=== PATIENT | female | born 1975 | race Caucasian/White ===

== ENCOUNTER 2018-04-28 10:00 | Outpatient (RCR) | payer MEDICARE, MEDICAID, SELFPAY ==
--- NOTE | 2018-04-15 12:01 | PTTR_ITS ---
DATE: 04/15/18 SUBJECTIVE: Tia states that she is scheduled at [facility] for an ortho consult in mid-May. She is having a great deal of LE pain after repetitive squatting at work on Saturday. She's had difficulty getting up from chairs due to the severity of her muscle soreness. Compliant with HEP: x Yes No OBJECTIVE: Manual therapy: ([id number]). Patient's ambulating with significant antalgia. She requires UE support for all transfers. She received PROM to the right shoulder, followed by grade II AP GH joint mobs. In sidelying, she received scapular framing techniques and TrP release to the rhomboids, followed by DTM to the infraspinatus. She was instructed in sidelying shoulder ER, and provided with handouts for home completion. Also added light LE strengthening activities , which she can attempt on her own for generalized strengthening. Direct treatment time: 30 minutes Total treatment time: 30 minutes
--- NOTE | 2018-04-28 13:04 | PN_ITS ---
DATE: April 28, 2018 REFERRING: Juma Herrera M.D. cc: [facility] [place], [place] REFERRING PROVIDER DIAGNOSIS:: neck pain PHYSICAL THERAPY DIAGNOSIS: scapular dyskinesia with right rotator cuff impingement REPORTING PERIOD (for progress note and discharge note only): 01/15/18 through SUBJECTIVE: Tia presents today with complaints of continued right shoulder pain. She describes pain through the superior shoulder, extending through the lateral arm to the level of the elbow with occasional tingling in the dorsum of the right hand. Pain has been ongoing, now, for several months without significant improvement. She does get temporary relief with P.T. interventions , and has been working on a progressive strengthening program for the past several weeks. She has a scheduled Orthopedic consultation on May 20, which she is looking forward to. The patient history does include a significant cervical history including a C6/7 spinal fusion with persistent scapular pain. Pain ratin/10 on average Pain location: Superior shoulder extending down the lateral arm. She also has chronic with para scapular pain. Prior level of function: Independent Social: The patient is employed by [employer]. She has been there for many years. Current level of function: The patient continues to struggle with functional reach with the right UE. She is not able to reach behind her back for self care. She has a great deal of social stress in her life. Previous treatment: The patient has had extensive P.T. interventions regarding her neck. She was seen at [facility] for management of her cervical and lumbar spine historically. Comorbidities: She is S/p C6/7 spinal fusion, S/p L5/S1 spinal fusion with spinal stimulator implant, depression, GERD and peripheral neuropathy Standardized Measures: * Disability Arm/Shoulder/Hand Score (DASH): 46% OBJECTIVE: Posture: The patient continues to demonstrate rounded shoulder, forward head posturing with significant scapula winging noted bilaterally. Gait: (indicate right or left deficits) Non antalgic and non ataxic. Palpation: The patient has significant soft tissue tightness, most specifically through the right rhomboids, right infraspinatus and right upper trapezius. She is hyper sensitive through these regions, and has palpable trigger points noted. She is exquisitely tender to palpation over the greater tuberosity on the right and through the posterior capsule. ROM: Cervical flexion and extension are WNL. Rotation is approximately 60 bilaterally and side bending 20 bilaterally. UE motion allows shoulder flexion to 165 on the right. Functional internal rotation with thumb to L3 with obvious discomfort and difficulty. Passively, flexion allows 160 with impingement symptoms and empty end feel. Internal and external rotation are both WNL. Strength: Shoulder flexion 4/5 right, abduction 4/5 right, biceps 5/5, internal rotation 4+/5, and external rotation 4/5 right. Treatment: Manual therapy ([id number] x2) Today's session consisted of PROM to the right shoulder and Grade 2 inferior and AP glenohumeral joint mobilizations. The patient also received deep tissue mobilizations through the posterior shoulder, beginning with scapula framing techniques and progressing to deep tissue mobilizations through the infraspinatus. She received trigger point release to the rhomboids and infraspinatus. Deferred friction massage due to historically poor tolerance. Treatment time: Total 30 minutes ASSESSMENT: Tia is a 42 year old female who has been participating in P.T. with infrequent visits for the past 3 months, for progressive strengthening and mobilizations. She continues to have significant shoulder discomfort and functional weakness despite progressive strengthening activities. She does have a long history of chronic neck issues with history of cervical fusion and chronic pain, however I continue to suspect a component of rotator cuff tendinopathy, which unfortunately is not responding favorably to intervention. She does have an appointment scheduled with Orthopedics at [facility] in about 3 weeks. We will plan to hold on P.T. til that visit, although patient understands she can contact me with any questions or concerns in the meantime. G-Codes (add modifier after appropriate code): Patient's primary functional limitation is in the category of: * [x] Carrying, moving and handling objects: [id number]-[[id number]] based on her DASH score vs. NDI as I suspect the majority of her issues are related to shoulder vs. neck dysfunction Projected goal: [id number]-[CI] ST) initiate scapular stabilization program without increasing pain - met 2) painfree cervical ROM - progressing toward LT) fully independent in self management of symptoms - not met 2) patient able to tolerate driving without increasing pain - not met 3) return to premorbid level of function - not met 4) return to full, painfree functional mobility - not met 5) independent self maintenance program - not met PLAN: Hold on P.T. until after her Orthopedic consultation. Will follow up with a re-evaluation and progression, at that time, with alterations in POC based on Ina recommendations. Please sign, date and return to our clinic with your approval......................... Juma Herrera M.D.
== END 2018-05-02 23:59 | disposition home or self-care (01) ==
LOC: PT 10:00
PROVIDERS: PCP Family Medicine; Referring Provider Family Medicine; Visit Provider Family Medicine
DX: M54.2 Cervicalgia (principal); M75.41 Impingement syndrome of right shoulder
CPT/HCPCS: 97140

== ENCOUNTER 2018-10-07 09:39 | Outpatient (CLI) | payer MEDICARE, MEDICAID, SELFPAY ==
[2018-10-07 12:08] LABS: Vitamin B12 435 pg/mL (193-986)
== END 2018-10-07 09:59 ==
PROVIDERS: PCP Family Medicine; Visit Provider Family Medicine
DX: Z98.84 Bariatric surgery status (principal); K90.89 Other intestinal malabsorption
CPT/HCPCS: 36415; 82607

== ENCOUNTER 2018-12-02 07:43 | Outpatient (CLI) | payer MEDICARE, MEDICAID, SELFPAY ==
[2018-12-03 15:57] LABS: Hepatitis C Ab w Rflx HCV PCR Negative (NEGAT)
== END 2018-12-02 08:03 ==
PROVIDERS: PCP Family Medicine; Visit Provider Family Medicine
DX: Z20.5 Contact with and (suspected) exposure to viral hepatitis (principal); Z11.59 Encounter for screening for other viral diseases
CPT/HCPCS: 36415; 86803

== ENCOUNTER 2019-05-01 08:19 | Outpatient (CLI) | payer MEDICARE, MEDICAID, SELFPAY ==
--- NOTE | 2019-05-01 08:34 | DI.RAD_ITS ---
SYMPTOM/DIAGNOSIS: LEFT KNEE PAIN M25.562 LEFT KNEE: There may be slight narrowing of the medial femoral tibial joint space which shows mild spurring. There is slight spurring at the tibial spines. Spurring is also noted at the patellofemoral joint. IMPRESSION: Mild degenerative changes.
[2019-05-01 09:31] LABS: Anion Gap 8.8 mmol/L (3-11); BUN 11 mg/dL (7-18); CO2 29.2 mmol/L (21.0-32.0); Calcium 8.9 mg/dL (8.5-10.1); Chloride 107 mmol/L (98-107); Glucose 79 mg/dL (70-100); Potassium 4.1 mmol/L (3.5-5.1); Sodium 145 mmol/L (136-145)
== END 2019-05-01 08:39 ==
PROVIDERS: PCP Family Medicine; Visit Provider Family Medicine
DX: M25.562 Pain in left knee (principal); M48.00 Spinal stenosis, site unspecified; M17.12 Unilateral primary osteoarthritis, left knee
CPT/HCPCS: 36415; 73562; 80048

== ENCOUNTER 2019-09-08 09:46 | Outpatient (CLI) | payer MEDICARE, MEDICAID, SELFPAY ==
[2019-09-08 10:29] LABS: HCT 40.5 % (36.0-46.0); Mean Corp. HGB Concentration 34.6 g/dL (32.0-36.0); Mean Corpuscular Hemoglobin 30.2 pg (27.0-33.0); Mean Corpuscular Volume 87.5 fL (80-95); Mean Platelet Volume 9.5 fL (8.0-11.0); Platelet Count 235 x1000/uL (130-400); RBC 4.63 m/cumm (4.00-5.20); RBC Distribution Width 13.3 % (11.7-14.6); White Blood Cell Count 4.26 k/cumm (4.4-10.8)
[2019-09-08 13:13] LABS: ALT 27 U/L (14-59); AST 16 U/L (15-37); Albumin 3.7 g/dL (3.4-5.0); Alkaline Phosphatase 55 U/L (46-116); Anion Gap 9.4 mmol/L (3-11); BUN 17 mg/dL (7-18); Bilirubin, Total 0.5 mg/dL (0.2-1.0); CO2 26.6 mmol/L (21.0-32.0); CREATININE 0.68 mg/dL (0.55-1.02); Calcium 9.1 mg/dL (8.5-10.1); Chloride 107 mmol/L (98-107); Glucose 117 mg/dL (74-106); Sodium 143 mmol/L (136-145); Total Protein 6.6 g/dL (6.4-8.2)
== END 2019-09-08 10:06 ==
PROVIDERS: PCP Family Medicine; Visit Provider Obstetrics & Gynecology Gynecology
DX: R10.2 Pelvic and perineal pain (principal); Z01.818 Encounter for other preprocedural examination; Z01.812 Encounter for preprocedural laboratory examination
CPT/HCPCS: 36415; 80053; 85027; 86850; 86900; 86901

== ENCOUNTER 2019-09-09 10:03 | Observation (INO) | payer MEDICARE, MEDICAID, SELFPAY ==
[2019-09-09] VITALS (15 sets, daily range): BP systolic 95–120; BP diastolic 38–75; PULSE 56–80; RESP 14–22; TEMP 36.7–37.1; O2SAT 94–100
[2019-09-09] MEDS: Lactated Ringers 1,000 ML 125 ML IV ×2 (07:25→10:07)
--- NOTE | 2019-09-09 09:15 | PERITONEUM_PTH ---
PATIENT: Tia Rooney LOC: OBS U#:[id number] AGE/SX: 44/F ROOM: OBS.306 RE09/09/[address]: Brit Veliz : 1975 BED: A DIS: 09/10/2019 SPEC #: [id number] RECD: 09/09/19 12:42 STATUS: SOUMaurisio REQ #: [id number] CONSUELO: 09/09/19 09:[address]: Brit Veliz DEPT: Surgical Specimen RECD BY: Yoly Lindquist ENTERED: 09/09/19 12:44 SP TYPE: PERITONEUM OTHR DR: Juma Herrera MD Tissues: 1 - PERITONEUM/ANATOLIY BIOPSY 2 - OVARY NOT TUMOR W OR W/O TUBES Procedures: GROSS AND MICRO LEVEL 4 Comments: [id number]
[2019-09-09] MEDS: Bupivacaine 0.25% Pres-Free 30 ML VIAL (09:30)
[2019-09-09] MEDS: fentaNYL 100 MCG/2 ML VIAL IVP ×3 (10:13→10:37)
[2019-09-09] MEDS: HYDROmorphone 2 MG TAB PO ×2 (12:27→17:22)
--- NOTE | 2019-09-09 12:41 | NUR.NOTE ---
1045- Admitted to room 306 uziel bed from PACU. IV of LR infusing via R periph line in R hand. Awake oriented C/O pain in Abdomen. SCD's in place bilat.Nursing Note:
--- NOTE | 2019-09-09 13:08 | W.PM.OP ---
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 Nl abd/pelvic CT/u/s. Not a candidate for OCPs. Hx of LAVH in past Her cyclic pelvic pain has improved with ovarian suppression in the form of Depo-Lupron 11.25 mg every 3 months since October 2017. Findings: Small amount of clear serous fluid in the posterior cul-de-sac absence of uterus. Single strawlike structure extending from the serosal surface of the small intestine to the vaginal cuff was noted upon entry into the abdominal cavity. Dr. Maurice Murillo kindly provided a intraoperative consult and recommended removal of the structure. Upper abdomen was normal in appearance right. Right fallopian tube fallopian tube was distended left fallopian tube missing. Both ovaries appeared normal. No dense adhesions there was evidence of scattered minute blue bleb endometriosis on the pelvic sidewalls. All total accumulation less than 0.5 cm. Procedure Description: Patient was brought to the operating room was placed in the dorsal supine position and general endotracheal anesthesia was administered without difficulty she was prepped and draped in the usual sterile fashion. Surgical timeout was performed SCDs were in place. Attention was turned to the patient's abdomen after Fritz catheter was inserted to gravity drainage the umbilical fold was infiltrated with quarter percent Marcaine without epinephrine and a 10 mm vertical skin incision was made in the umbilical fold using a scalpel. The abdominal wall was tented up and under direct visualization with the abdominal ultrasound the varies needle was introduced into the abdominal cavity with CO2 insufflation noted to decrease from 15 mmHg to 5 mmHg upon entry into the abdominal cavity. Pneumoperitoneum with carbon dioxide gas was achieved and the varies needle withdrawn 10 mm Visiport was then introduced through the umbilical incision and entry into the abdominal cavity confirmed by use of the laparoscope. Patient was then placed in Trendelenburg and a 5 mm skin incision right lower quadrant was made after infiltration of the site with quarter percent Marcaine without epinephrine. Through this incision of and under direct visualization a 5 mm trocar and sleeve were introduced into the abdominal cavity. A similar technique was carried out on the contralateral side. A tubular structure ran caudal cephalad from the vaginal cuff to the surface of the small intestine a surgical up was used at both the proximal and distal ends and again 3 cm distal from the clip at the small bowel. Laparoscopic scissors were used cut between the clips proximal to the small intestine. LigaSure device was used to clamp cauterize and cut the portion of the structure in proximity to the clip at the vaginal cuff. The right adnexa was grasped and a LigaSure device was used to grasp cauterize and transect the infundibulopelvic ligament, on tubo-ovarian ligament and the remaining mesosalpinx. The adnexa was then placed in the posterior cul-de-sac and attention was turned to the patient's left adnexa where left fallopian tube was grasped tented and the infundibulum pelvic ligament was sequentially grasped clamped cauterized and transected and the intact ovary placed in the posterior cul-de-sac. Both pedicle sites were noted to be hemostatic. Both adnexal specimens were placed into 10 mm Endo Catch bag and the Endo Catch bag delivered through the umbilical incision without difficulty. The specimen was passed off of the operative field. Final inspection was made of the pedicle sites and posterior cul-de-sac sites were hemostatic. Cul-de-sac appeared normal. Under direct visualization both lower trochars were removed and the sites noted to be hemostatic. Pneumoperitoneum was reduced umbilical port was removed and the rectus fascia reapproximated with interrupted suture of 0 Vicryl. The skin of the umbilical incision was reapproximated with a 4-0 Monocryl and the skin of all incisions was reopened was reapproximated with skin glue. Patient was awakened extubated and transported recovery in stable condition all sponge lap needle counts are correct x2
[2019-09-09] MEDS: Normal Saline Flush 10 ML SYR IV ×2 (15:35→21:33)
[2019-09-09] MEDS: Ketorolac 30 MG/ML VIAL IVP ×2 (15:35→21:34)
[2019-09-09] MEDS: LORazepam 1 MG TAB PO ×2 (21:32)
[2019-09-09] MEDS: Docusate Sodium 100 MG CAP PO (21:33)
[2019-09-10] MEDS: HYDROmorphone 2 MG TAB PO ×2 (02:26→08:15)
[2019-09-10 04:00] VITALS: BP 112/68; PULSE 78; RESP 18; TEMP 36.8
[2019-09-10] MEDS: Normal Saline Flush 10 ML SYR IV (04:00)
[2019-09-10] MEDS: LORazepam 1 MG TAB (04:01)
[2019-09-10] MEDS: Ketorolac 30 MG/ML VIAL IVP (04:02)
[2019-09-10] MEDS: Docusate Sodium 100 MG CAP PO (08:11)
[2019-09-10] MEDS: Acetaminophen 500 MG TAB PO (08:13)
[2019-09-10 08:15] VITALS: BP 112/72; PULSE 80; RESP 16; TEMP 36.8; O2SAT 98
--- NOTE | 2019-09-10 18:41 | W.PM.PROGNOT ---
Date of Service Date of service: 09/10/19 Time of Service: 19:02 Assessment and Plan Assessment and plan (1) History of bilateral salpingo-oophorectomy: Status: Acute Assessment and plan: Surgery was uncomplicated. Patient discharged to home on postop day #1 tolerating oral Dilaudid and rating her pain at a 7/10. Plan is to have [facility] regarding pathology results. She was given a work excuse and a prescription for Dilaudid 2 mg every 6 hours as needed for pain and nonsteroidal anti-inflammatories. After discharge the patient contact me in stated that she experienced increased GERD symptoms a prescription for once a day omeprazole was E faxed to her pharmacy. Subjective Subjective Patient reports: still having pain (But pain is being controlled with oral Dilaudid.), tolerating a regular diet, flatus and no bowel movement (States history of infrequent BMs after bariatric surgery); denies nausea and vomiting Interval history since last seen: Patient underwent a laparoscopic bilateral oophorectomy on 09/09/2019. She was admitted for observation anticipation of greater than average pain secondary to her pain history. She tolerated the oral Dilaudid well and is ready for discharge this morning. Incisions are tender and her discomfort is generalized in her abdomen and pelvis. Exam Const General: no acute distress Nutritional Appearance: overweight Orientation: alert, awake and oriented x3 Resp Effort & Inspection: normal respiratory effort Auscultation: clear to auscultation bilaterally Cardio Rate: regular rate Rhythm: regular rhythm GI Inspection: other (Incisions clean dry and intact skin glue in place) Palpation: soft, no hepatosplenomegaly, no guarding, no masses and tender General: deferred Skin General skin exam: no rashes or lesions noted Extrem General: normal to inspection, full ROM and normal capillary refill Objective Objective Clinical Data: Vital Signs Temperature 98.2 F 09/10/19 08:15 Temperature Source Oral 09/10/19 08:15 Pulse 80 09/10/19 08:15 Pulse Rhythm Regular 09/10/19 08:15 Respiratory Rate 16 09/10/19 08:15 Respiratory Effort 09/10/19 08:15 Respiratory Depth Normal 09/10/19 08:15 Respiratory Pattern Normal 09/10/19 08:15 Blood Pressure 112/72 09/10/19 08:15 Pulse Oximetry 98 09/10/19 08:15 Respiratory End-tidal CO2 42 09/09/19 10:45 Oxygen Delivery Method Room Air 09/10/19 08:15 Oxygen Flow Rate 0 09/10/19 08:15 Pain Level 6 09/10/19 08:15 Intake & Output 09/09/19 09/10/19 09/10/19 23:59 11:59 23:59 Intake Total 889.167 / 2089.167 Output Total 1500 / 1525 Balance -610.833 / 564.167 Intake: IV 489.167 / 1689.167 Oral 400 / 400 Output: Urine 1500 / 1525 Other: Urine Color Yellow Urine Appearance Clear Urine Odor None Voiding Methods Toilet
== END 2019-09-10 11:00 | disposition home or self-care (01) ==
LOC: OBS 11:30
PROVIDERS: Admitting Provider Obstetrics & Gynecology Gynecology; PCP Family Medicine; Visit Provider Obstetrics & Gynecology Gynecology
PROC: 0UT24ZZ Resection of Bilateral Ovaries, Percutaneous Endoscopic Approach (ICD-10-PCS; CPT 58661; principal; 2019-09-09 08:30)
DX: N70.11 Chronic salpingitis (principal); N99.4 Postprocedural pelvic peritoneal adhesions; G89.29 Other chronic pain; R10.2 Pelvic and perineal pain; Z98.51 Tubal ligation status; N94.10 Unspecified dyspareunia; Z90.710 Acquired absence of both cervix and uterus; Z90.79 Acquired absence of other genital organ(s); K21.9 Gastro-esophageal reflux disease without esophagitis
CPT/HCPCS: 58661; 88305; NC; G0378; J1100; J1885; J2001; J2405; J2704; J3010

== ENCOUNTER 2020-04-22 07:24 | Outpatient (CLI) | payer MEDICARE, SELFPAY ==
[2020-04-25 12:40] LABS: SARS-CoV-2 RNA Undetected (Undetected); SARS-CoV-2 Specimen Source Nasopharynx
== END 2020-04-22 07:44 ==
PROVIDERS: PCP Nurse Practitioner; Visit Provider Family Medicine
DX: Z11.59 Encounter for screening for other viral diseases (principal)
CPT/HCPCS: U0003

== ENCOUNTER 2020-05-30 03:03 | Outpatient (CLI) | payer MEDICARE, SELFPAY ==
[2020-05-30 09:51] LABS: Calculated LDL 81 mg/dL (<100); Cholesterol 198 mg/dL (<200); HDL Cholesterol 99 mg/dL (40-60); Triglyceride 91 mg/dL (<150)
== END 2020-05-30 03:23 ==
PROVIDERS: PCP Nurse Practitioner; Visit Provider Nurse Practitioner
DX: R73.03 Prediabetes (principal); E66.9 Obesity, unspecified
CPT/HCPCS: 36415; 80061; 83036

== ENCOUNTER 2020-06-02 02:43 | Outpatient (CLI) | payer MEDICARE, SELFPAY ==
--- NOTE | 2020-06-02 07:45 | DI.MAMMO_ITS ---
EXAM: MAMMO SCREENING CLINICAL HISTORY: screening,Z12.39 TECHNIQUE: Mammograms were interpreted according to the usual protocol including computer analysis w BOND CAD system, tomosynthesis and C-view imaging. COMPARISON: 2013 and 2015 FINDINGS: The breasts are composed of heterogeneously dense fibroglandular densities, Breast Density category C . No suspicious masses or suspicious microcalcifications are seen. No skin thickening or abnormal axillary lymph nodes are seen. There has been no significant change from prior exams. IMPRESSION: BI-RADS Category 1, Negative mammogram. Yearly screening mammography is recommended. Breast Density Category C, heterogeneously Dense. The mammogram demonstrates the patient's breast tissue is dense. Dense breast tissue is very common a nd is not abnormal but dense breast tissue can make it harder to find cancer on a mammogram. Also, de nse breast tissue may increase breast cancer risk. This information about the result of the mammogram report was provided to the patient to raise their awareness. Use this report when you speak with the patient about their risks for breast cancer, which includes their family history. At that time, you may recommend additional screening tests (Ultrasound or MRI) as they might be useful based on their r isk. A negative radiographic report should not delay biopsy if a dominant or clinically suspicious mass is present. Up to ten percent of cancers are not identified on mammography. A negative report may reinforce clinical impression. Adenosis and dense breasts may obscure an underlying neoplasm. False positive reports average 6 to 10%.
== END 2020-06-02 03:03 ==
PROVIDERS: PCP Nurse Practitioner; Visit Provider Nurse Practitioner
DX: Z12.31 Encounter for screening mammogram for malignant neoplasm of breast (principal)
CPT/HCPCS: 77063; 77067

== ENCOUNTER 2020-11-14 09:52 | Outpatient (CLI) | payer MEDICARE, SELFPAY ==
[2020-11-15 13:47] LABS: COVID-19 RT-PCR UVMMC Result Negative (Negative)
== END 2020-11-14 09:53 | disposition home or self-care (01) ==
PROVIDERS: PCP Nurse Practitioner; Visit Provider Nurse Practitioner
DX: J02.9 Acute pharyngitis, unspecified (principal); Z20.822 Contact with and (suspected) exposure to COVID-19
CPT/HCPCS: U0003; U0005; 87081

== ENCOUNTER 2020-12-13 20:50 | Outpatient (REF) | payer MEDICARE, OTHER, SELFPAY | END 2020-12-13 20:51 | disposition home or self-care (01) | LOC: LBN 20:50 | PROVIDERS: PCP Nurse Practitioner; Visit Provider Nurse Practitioner Family | DX: J02.9 Acute pharyngitis, unspecified (principal) | CPT/HCPCS: 87070 ==

== ENCOUNTER 2021-03-11 10:39 | Emergency (ER) | payer MEDICARE, SELFPAY ==
[2021-03-11 10:42] VITALS: BP 132/64; PULSE 87; RESP 14; TEMP 36.7; O2SAT 98
--- NOTE | 2021-03-11 10:54 | ED.GENADUL_ITS ---
Discharge Plan Disposition Patient Disposition: HOME Condition: Stable Discharge Details Clinical Impression: Shoulder pain, right Primary Care Provider: Shonda Sánchez ED Provider: Horacio Harris Home Meds and New Rx's Prescriptions: Continued cyclobenzaprine 10 mg tablet 10 mg PO HS PRN (Reason: muscle spasm) Qty: 30 RF: 3 cholecalciferol (vitamin D3) 50 mcg (2,000 unit) capsule 50 mcg PO DAILY Qty: 90 RF: 3 prochlorperazine 25 mg suppository 25 mg IA Q12H PRN (Reason: nausea and vomiting) Qty: 12 RF: 3 albuterol sulfate [ProAir HFA] 90 mcg/actuation HFA aerosol inhaler 1 - 2 puff Inhalation Q4H PRN Qty: 1 RF: 6 buspirone 5 mg tablet 30 mg PO BID RF: 0 sumatriptan succinate 6 mg/0.5 mL cartridge 6 mg subcut Q1-4H PRN (Reason: migraine headache) Qty: 6 RF: 0 Multi Complete with Iron 1 EACH tablet 1 tab PO DAILY RF: 0 vitamin d 3,000 units PO DAILY RF: 0 duloxetine 30 mg capsule,delayed release(DR/EC) 30 mg PO DAILY Qty: 90 RF: 4 duloxetine [Cymbalta] 60 mg capsule,delayed release(DR/EC) 60 mg PO DAILY Qty: 90 RF: 4 omeprazole magnesium [Prilosec OTC] 20 mg tablet,delayed release (DR/EC) 20 mg PO DAILY PRN (Reason: heartburn) Qty: 30 RF: 3 pregabalin [Lyrica] 100 mg capsule 100 mg PO TID Qty: 90 RF: 5 methylphenidate HCl 20 mg tablet 20 mg PO BID MDD 40 mg Qty: 56 RF: 0 methylphenidate HCl 10 mg tablet 10 mg PO BID MDD 20 mg Qty: 56 RF: 0 oxycodone 5 mg tablet 5 mg PO TID MDD 15 mg PRN (Reason: pain) Qty: 84 RF: 0 docusate sodium [Colace] 100 MG capsule 100 mg PO BID PRNRF: 0 clonidine HCl 0.1 mg tablet 0.1 mg PO BID RF: 0 Discharge Instructions Instructions: Shoulder Pain (ED) Additional Instructions: X-ray read by me as negative, awaiting official read by radiology. If over read shows no abnormality I will personally call you. Continue your oxycodone and Tylenol as directed. Wear sling as needed, advance activity as tolerated. Be sure to do passive range of motion at least 4 times daily to avoid a frozen shoulder. Cool and/or warm compresses every 2 hours for 20 minutes. Please watch for new or worsening symptoms and return to the ER for any concerns. I do recommend you reach out to both your primary care provider and orthopedic team on Saturday regarding your acute and chronic shoulder pain. Discharge Data Discharge Date/Time-TO BE ENTERED AT DEPARTURE: 03/11/21 12:01 Medical Decision Making 45-year-old female, [id number], chronic right shoulder pain, presenting for injury that occurred 3 days ago after a direct blow to her shoulder. She does have an abrasion although there are no signs of infection. Vital signs are unremarkable. Clinically this appears to be soft tissue in nature but will obtain x-ray of her right shoulder for further evaluation. Patient will also be given IM Toradol. Discussed treating with sling, cool compresses, we discussed the importance of passive range of motion to avoid a frozen shoulder. X-ray reviewed by me and confirmed by radiology as negative. Discussed x-ray findings with patient. Patient already placed into a sling. We discussed signs and symptoms of infection. We also discussed the importance of outpatient follow-up through her orthopedic team for her chronic and acute shoulder pain. Patient has no additional questions or concerns and is comfortable discharge at this time. Patient does have a opiate controlled substance prescription contract, encouraged her to contact her primary care provider if she is going to require additional pain medication for her new discomfort. This documentation was generated using [employer] dictation system, please disregard any oddities of phrase or misspellings. Medical Records Medical records reviewed: Yes I reviewed the patient's medical records. Imaging Data Radiologic Study: Attestation: I personally reviewed and interpreted this imaging study as follows: Imaging: X-Ray Radiologist's impression: EXAM: XR SHOULDER RT COMPLETE 2+V CLINICAL HISTORY: chronic pain, new injury 3 days ago. TECHNIQUE: 2D digital imaging was performed. COMPARISON: No exams were available for comparison FINDINGS: BONES: No acute fracture is present. No bony destructive lesion is seen. JOINTS: No dislocation present. SOFT TISSUE: Normal. IMPRESSION: Unremarkable radiographs of the right shoulder. HPI General Mode of arrival: ambulatory . Date/Time Provider Initiated Documentation: 03/11/21 10:40 . Limitations to Documentation: no limitations . Information obtained by: patient . HPI Narrative: This is a 45-year-old female, past medical history that includes depression, GERD, idiopathic peripheral neuropathy, cervical radiculopathy, current smoker, has an opiate-controlled prescription contract presenting for evaluation of right shoulder pain acute on chronic. Patient states that 3 days ago while working in her yard she placed her weed shahrzad on a cell rack, she was bent over, and upon standing up struck her right shoulder on the machine. She felt like it miguel a her shoulder and she sustained a small abrasion. Subsequently the surrounding area has become more sore especially with movement. She denies any redness, fever, warmth, drainage. Patient states that she had been on 10 mg of oxycodone 6 times a day and over the past several month she has been weaned down to 5 mg now only every 8 hours. Patient is primarily concerned that the area could be infected. Patient states at baseline she has a rotator cuff injury and is following orthopedic for this. Related Data Home Medications Medication Instructions Recorded Confirmed Multi Complete with Iron 1 tab PO DAILY 06/09/15 03/11/21 Vitamin D 3,000 units PO DAILY 10/15/17 03/11/21 cyclobenzaprine 10 mg tablet 10 mg PO HS PRN #30 tab 10/07/18 03/11/21 docusate sodium [Colace] 100 mg PO BID PRN 09/09/19 03/11/21 albuterol sulfate 90 mcg/actuation 1 - 2 puff INHALATION Q4H PRN #1 06/03/20 03/11/21 aerosol inhaler inhaler cholecalciferol (vitamin D3) 50 50 mcg PO DAILY #90 cap 06/03/20 03/11/21 mcg (2,000 unit) capsule prochlorperazine 25 mg rectal 25 mg IA Q12H PRN #12 each 06/03/20 03/11/21 suppository duloxetine 30 mg capsule,delayed 30 mg PO DAILY #90 cap 08/02/20 03/11/21 release duloxetine 60 mg capsule,delayed 60 mg PO DAILY #90 tab 10/07/20 03/11/21 release omeprazole magnesium 20 mg 20 mg PO DAILY PRN #30 tab 10/11/20 03/11/21 tablet,delayed release pregabalin 100 mg capsule 100 mg PO TID #90 tab-cap 10/11/20 03/11/21 methylphenidate HCl 10 mg tablet 10 mg PO BID #56 tab MDD 20 mg 11/18/20 03/11/21 methylphenidate HCl 20 mg tablet 20 mg PO BID #56 tab MDD 40 mg 11/18/20 03/11/21 buspirone 5 mg tablet 30 mg PO BID 01/10/21 03/11/21 sumatriptan succinate 6 mg/0.5 mL 6 mg SUBCUT Q1-4H PRN #6 ml 01/10/21 03/11/21 subcutaneous cartridge (refill) oxycodone 5 mg tablet 5 mg PO TID PRN #84 tab MDD 15 mg 02/14/21 03/11/21 clonidine HCl 0.1 mg PO BID 03/11/21 03/11/21 Previous Rx's Medication Instructions Recorded cyclobenzaprine 10 mg tablet 10 mg PO HS PRN #30 tab 10/07/18 albuterol sulfate 90 mcg/actuation 1 - 2 puff INHALATION Q4H PRN #1 06/03/20 aerosol inhaler inhaler cholecalciferol (vitamin D3) 50 50 mcg PO DAILY #90 cap 06/03/20 mcg (2,000 unit) capsule prochlorperazine 25 mg rectal 25 mg IA Q12H PRN #12 each 06/03/20 suppository duloxetine 30 mg capsule,delayed 30 mg PO DAILY #90 cap 08/02/20 release duloxetine 60 mg capsule,delayed 60 mg PO DAILY #90 tab 10/07/20 release omeprazole magnesium 20 mg 20 mg PO DAILY PRN #30 tab 10/11/20 tablet,delayed release pregabalin 100 mg capsule 100 mg PO TID #90 tab-cap 10/11/20 methylphenidate HCl 10 mg tablet 10 mg PO BID #56 tab MDD 20 mg 11/18/20 methylphenidate HCl 20 mg tablet 20 mg PO BID #56 tab MDD 40 mg 11/18/20 sumatriptan succinate 6 mg/0.5 mL 6 mg SUBCUT Q1-4H PRN #6 ml 01/10/21 subcutaneous cartridge (refill) oxycodone 5 mg tablet 5 mg PO TID PRN #84 tab MDD 15 mg 02/14/21 Allergies Allergy/AdvReac Type Severity Reaction Status Date / Time adhesive tape Allergy Intermediate Raw Skin Verified 03/11/21 10:45 bee pollen [Bee Pollen] Allergy Intermediate Large Verified 03/11/21 10:45 local reaction codeine [Codeine] AdvReac Intermediate NAUSEA/VOMI Verified 03/11/21 10:45 TING General Stated Complaint: GenMedical CUAUHTEMOC: 4 Review of Systems Constitutional Constitutional: Denies weakness ENT Ears, Nose, Mouth, and Throat: Reports neck pain (chronic) Cardiovascular Cardiovascular: Denies chest pain and Denies dyspnea Respiratory Respiratory: Denies dyspnea Gastrointestinal Gastrointestinal: Denies abdominal pain, Denies nausea and Denies vomiting Integumentary/Breasts Skin/Breast: Denies erythema Neurologic Neurologic: Denies weakness [facility] Medical History Cellulitis of leg right lower extremity cellulitis Cellulitis of leg Cervicalgia Cervicalgia Cholelithiasis without obstruction S/P cholecystectomy Chronic pelvic pain in female Pelvic CT. Normal pelvic and abdominal ultrasound. 10/2017 Depo-Lupron 11.25 mg IM Depression Multifactorial. Currently dealing with achieving custody of her granddaughter from her daughter. GERD (gastroesophageal reflux disease) Hand pain, right 07/2020- seeing OT History of tobacco use Idiopathic peripheral neuropathy Kidney stone Lower abdominal pain (10/22/17) Rx with DepoLupron 11.25mg x1 10/22/17. Lumbar radiculopathy, acute Menorrhagia (05/06/14) Os trigonum syndrome Right cervical radiculopathy (04/03/16) better since spinal fusion Substance abuse Tarsal tunnel syndrome Tarsal tunnel syndrome S/P RIGHT 11/13/11 ([facility]) operated on right foot- stable Tobacco use Vasomotor symptoms due to menopause 09/2019. Laparoscopic bilateral salpingectomy for treatment of pelvic pain. VMS after surgery present but tolerable Surgical History Cholecystectomy (~1997) Endometrial Biopsy 05/10/14;[facility] History of bilateral ligation of fallopian tubes History of bilateral salpingo-oophorectomy 09/09/2021 treat chronic pelvic pain. Patient had been pretreated for approximately 2 years with Depo. Lupron History of gynecological procedure History of spinal fusion >5 years Hysterectomy, Laproscopic (~10/2016) Ovaries conserved. Postop vaginal cuff hematoma managed expectantly. EP Ligation of fallopian tube sleeve gastrectomy (~2015) [facility] Spinal Fusion (~2006) nerve stimulator implanted Status post cholecystectomy Social History Smoking/Tobacco Use Status: Current every day Tobacco Type: e-cigarettes Second Hand Exposure: Yes Smoking risk assessment performed?: Yes Alcohol Intake: current Alcohol Intake frequency: a few times a month Details: OCCASIONAL Drug use: Occasionally Substance use type: marijuana Household members: spouse, family and other Details: Will have custody of her grandchild Merry 10/2018. Number of Children: 3 number of grandchildren: 3 Other: 09/01/20 Favio Young Seatbelt use: always Do you feel safe at home: Yes Do you feel safe in your relationship?: Yes Additional Social history: Daughter Valente is Merry's mother. Daughter Selena is currently Female Reproductive History Menstrual Menopause type: surgical History History 3 Para Hx # Term Pregnancies 3 Multiple births Hx # Pregnancies Ectopic pregnancies AB induced Hx Number of Living Children AB spontaneous Exam Const General: cooperative, healthy appearing, comfortable and no acute distress Orientation: alert and awake HENNH Head: normal to inspection, normocephalic and atraumatic Mouth: moist mucous membranes Eyes General: appearance normal, both eyes and all related structures Conjunctivae: conjunctivae normal Neck Neck: normal visual inspection, full ROM, trachea midline and supple Resp Effort & Inspection: normal respiratory effort and able to speak in complete sentences Auscultation: clear to auscultation bilaterally Cardio Rate: regular rate Rhythm: regular rhythm Skin General skin exam: no rashes or lesions noted Neuro General: patient alert, patient awake, moves all extremities and no focal motor deficits Cognition: normal cognition Speech: speech normal Gait: normal gait Motor: muscle tone normal throughout Sensory Exam: no sensory deficits noted Extrem General: capillary refill normal Shoulder/upper arm images: 1. Abrasion without warmth, induration, fluctuance, erythema, drainage. 2. Diffuse mild soft tissue discomfort. No obvious deformity. There is no erythema, warmth, signs of infection. No signs of abscess. Discomfort inc reases with range of motion of her right shoulder. Patient is hesitant to range her shoulder above 90 degrees, reports this is baseline. Neuro, vascular, tendon intact, normal radial pulse and capillary refill. Psych Appearance: grossly normal Mental Status: mental status grossly normal Course Vital Signs Vital signs: Vital Signs Temperature 36.7 C 03/11/21 10:42 Pulse 87 03/11/21 10:42 Respiratory Rate 14 03/11/21 10:42 Blood Pressure 132/64 03/11/21 10:42 Pulse Oximetry 98 03/11/21 10:42 Temperature 36.7 C 03/11/21 10:42 Temperature Source Skin 03/11/21 10:42 Pulse 87 03/11/21 10:42 Respiratory Rate 14 03/11/21 10:42 Respiratory Effort Non-Labored 03/11/21 10:48 Respiratory Depth Normal 03/11/21 10:48 Respiratory Pattern Normal 03/11/21 10:48 Blood Pressure 132/64 03/11/21 10:42 Blood Pressure Position Sitting 03/11/21 10:42 Pulse Oximetry 98 03/11/21 10:42 Oxygen Delivery Method Room Air 03/11/21 10:42 Oxygen Flow Rate 0 03/11/21 10:42 Pain Level 5 03/11/21 10:42
--- NOTE | 2021-03-11 11:00 | DI.RAD_ITS ---
Exam(s) XR SHOULDER RT COMPLETE 2+V EXAM: XR SHOULDER RT COMPLETE 2+V CLINICAL HISTORY: chronic pain, new injury 3 days ago. TECHNIQUE: 2D digital imaging was performed. COMPARISON: No exams were available for comparison FINDINGS: BONES: No acute fracture is present. No bony destructive lesion is seen. JOINTS: No dislocation present. SOFT TISSUE: Normal. IMPRESSION: Unremarkable radiographs of the right shoulder. DATA REPOSITORY: RADIATION DOSE DELIVERED:
[2021-03-11] MEDS: Ketorolac 60 MG/2 ML VIAL IM (11:13)
--- NOTE | 2021-03-11 12:04 | DI.VRAD_ITS ---
PROCEDURE INFORMATION: Exam: XR Right Shoulder Exam date and time: 03/11/2021 11:06 AM Age: 45 years old Clinical indication: Injury or trauma; Other: Chronic pain, new injury 3 days ago; Blunt trauma (contusions or hematomas); Shoulder; Right TECHNIQUE: Imaging protocol: XR Right shoulder. Views: 2 or more views. COMPARISON: No relevant comparison study. FINDINGS: Bones/joints: Normal. Soft tissues: Unremarkable. IMPRESSION: No acute bony findings. If clinical symptoms persist recommend followup film in 7-10 days. Dictated and Authenticated by: Yola Obregon MD. Ordering:JENNY Leonard MD
== END 2021-03-11 12:01 | disposition home or self-care (01) ==
PROVIDERS: Emergency Provider Physician Assistant; PCP Nurse Practitioner
DX: M25.511 Pain in right shoulder (principal); W22.8XXA Striking against or struck by other objects, initial encounter
CPT/HCPCS: 96372; 99284; 73030; 99283; J1885

== ENCOUNTER 2021-07-21 13:25 | Outpatient (REF) | payer MEDICARE, SELFPAY ==
[2021-07-21 16:27] LABS: *AMPHETAMINES SCREEN URINE Positive (Negative); *BARBITURATES SCREEN URINE Negative (Negative); *BENZODIAZEPINES SCREEN URINE Negative (Negative); Cannabinoids THC Negative (Negative); Cocaine Screen,Urine Negative (Negative); METHADONE URINE SCREEN Negative (Negative); OPIATES URINE SCREEN Negative (Negative)
[2021-07-21 16:29] LABS: Tricyclic Antidepressants Negative (Negative)
== END 2021-07-21 13:26 | disposition home or self-care (01) ==
LOC: LBN 13:25
PROVIDERS: PCP Nurse Practitioner; Visit Provider Nurse Practitioner
DX: G89.4 Chronic pain syndrome (principal); Z79.891 Long term (current) use of opiate analgesic; R82.5 Elevated urine levels of drugs, medicaments and biological substances
CPT/HCPCS: 80307

== ENCOUNTER 2021-08-15 18:51 | Outpatient (REF) | payer MEDICARE, SELFPAY ==
[2021-08-17 15:16] LABS: COVID-19 RT-PCR UVMMC Result Positive (Negative)
== END 2021-08-15 18:52 | disposition home or self-care (01) ==
LOC: LBN 18:51
PROVIDERS: PCP Nurse Practitioner; Visit Provider Nurse Practitioner
DX: Z20.822 Contact with and (suspected) exposure to COVID-19 (principal)
CPT/HCPCS: U0003

== ENCOUNTER 2021-10-31 16:01 | Emergency (ER) | payer MEDICARE, SELFPAY ==
[2021-10-31] MEDS: Normal Saline 1,000 ML 1000 ML IV (16:30)
--- NOTE | 2021-10-31 16:30 | DI.CT_ITS ---
Exam(s) CT RENAL COLIC WO EXAM: CT RENAL COLIC WO INDICATION: Right Flank pain. COMPARISON: CT ABD PELVIS WITH CONTRAST from 08/07/2017 TECHNIQUE: CT examination was performed without contrast administration. FINDINGS: Images obtained through the lung bases are unremarkable. Visualized portions of the liver and splee n appear intact. Visualized portions of the pancreas are unremarkable. Prior cholecystectomy noted, no gross biliary dilatation.. Abdominal aorta is of normal diameter. No significant abdominal wall hernia. No significant abdominal or pelvic adenopathy. Adrenals appear normal bilaterally. There is marked right hydronephrosis secondary to a 4-5 millimeter obstructing stone at the UP juncti on. No additional urinary tract calcification seen. No left hydronephrosis. No renal mass identifi ed.. Urinary bladder is unremarkable in appearance. Uterus is atrophic or absent. Note is made of Qiu rods and a spinal stimulator at the lumbosacral junction. IMPRESSION: High-grade obstruction of ureteropelvic junction on the right by a 4-5 millimeter in diameter stone. RADIATION DOSE DELIVERED: 1,259.09mGy.cm DLP 1,259.09mGy.cm Total DLP 1,259.09mGy.cm Total DLP !Error CTDIvol RADIATION OPTIMIZATION: All CT scans at this facility use at least one of these dose optimization te chniques: automated exposure control; mA and/or kV adjustment per patient size (includes targeted exa ms where dose is matched to clinical indication); or iterative reconstruction.
[2021-10-31 16:35] VITALS: BP 133/85; PULSE 62; TEMP 36.6; O2SAT 97
[2021-10-31 16:40] LABS: Bilirubin Negative (Negative); Blood Large (Negative); Clarity Cloudy (Clear); Glucose Negative (Negative); Ketones 40 mg/dL (Negative); Leukocyte Esterase Negative (Negative); Nitrite Negative (Negative); Specific Gravity 1.025 (1.005-1.025); Urobilinogen 0.2 EU/dL (Up TO 0.2); pH 8.5 (5-8)
[2021-10-31 16:49] LABS: Bacteria Negative HPF (Negative); Casts Negative LPF (Negative); Crystals Many Amorphous HPF (Negative); Epithelial Cells Negative HPF (Negative); Mucus Negative (Negative); Other Cells Negative (Negative); RBC >50 HPF (0-2)
[2021-10-31 16:50] LABS: C & S Indicated? No
--- NOTE | 2021-10-31 16:50 | W.ED.GENAD ---
Discharge Plan Disposition Patient Disposition: HOME Condition: Stable Discharge Details Clinical Impression: Kidney stone on right side Primary Care Provider: Unknown,Unknown ED Provider: Rosy Herrera Home Meds and New Rx's Prescriptions: New tamsulosin [Flomax] 0.4 mg capsule 0.4 mg PO QHS 7 Days Qty: 7 0RF ketorolac 10 mg tablet 10 mg PO TID PRN (Reason: pain) 4 Days Qty: 10 0RF Rx Instructions: Do not take longer than 4 days Continued cholecalciferol (vitamin D3) 50 mcg (2,000 unit) capsule 50 mcg PO DAILY Qty: 90 3RF prochlorperazine 25 mg suppository 25 mg [place] Q12H PRN (Reason: nausea and vomiting) Qty: 12 3RF albuterol sulfate [ProAir HFA] 90 mcg/actuation HFA aerosol inhaler 1 - 2 puff Inhalation Q4H PRN Qty: 1 6RF benzonatate 100 mg capsule 100 mg PO TID PRN (Reason: cough) Qty: 30 0RF duloxetine [Cymbalta] 60 mg capsule,delayed release(DR/EC) 60 mg PO DAILY Qty: 90 4RF pregabalin [Lyrica] 100 mg capsule 100 mg PO TID Qty: 270 0RF clonidine HCl 0.1 mg tablet 0.1 mg PO BID 0RF Label Comments: TAKE 1 TABLET BY MOUTH TWICE DAILY No Action Aimovig Autoinjector 70 mg/mL auto-injector 70 mg subcut QMONTH 0RF magnesium 200 mg tablet 200 mg PO DAILY 0RF oxycodone 5 mg tablet 5 mg PO DAILY MDD 10 mg PRN (Reason: pain) Qty: 21 0RF Rx Instructions: one tab daily x 2 weeks, one tab every other day x 2 weeks, then d/c buspirone 5 mg tablet 30 mg PO BID 0RF Multi Complete with Iron 1 EACH tablet 1 tab PO DAILY 0RF vitamin d 3,000 units PO DAILY 0RF duloxetine 30 mg capsule,delayed release(DR/EC) 30 mg PO DAILY Qty: 90 4RF Rx Instructions: Take with 60 mg cap methylphenidate HCl 20 mg tablet 20 mg PO BID MDD 40 mg Qty: 56 0RF Rx Instructions: Take with 10 mg tab methylphenidate HCl 10 mg tablet 10 mg PO BID MDD 20 mg Qty: 56 0RF Rx Instructions: Take with 20 mg for total dose of 30 mg omeprazole magnesium [Prilosec OTC] 20 mg tablet,delayed release (DR/EC) 20 mg PO DAILY PRN (Reason: heartburn) Qty: 90 3RF Discharge Instructions Instructions: Kidney Stones (ED) Additional Instructions: At this time it appears you have a 4 mm kidney stone on the right side. Please strain all your urine. Please follow-up with urology within the next 2 to 3 days. They should call you for an appointment but if you do not hear from them the next 24 to 48 hours please give them a call. Take the Toradol as directed and the nausea medications. Do not take any additional ibuprofen with the Toradol however you may take Tylenol if needed. Follow up with primary care provider in 3-5 days. Return to ED sooner if any worsening or concerns. Increase oral fluids. Please return sooner or be seen by urology sooner for pain not controlled by medication, difficulty urinating, fever, continued vomiting, Stand Alone Forms: Work Release Referrals: Je Schuler MD [ [facility] STAFF PHYSICIAN] - 3 days Ermelinda Cuevas DNP [NURSE PRACTITIONER] - 5 days Medical Decision Making 46-year-old female presents to the ER with chief complaint of right flank pain which began this morning. She reports nausea which started last night and this morning she woke up with right flank pain which radiates into her right groin. Work-up ordered including CBC, CMP, urinalysis was ordered by RN in triage which shows large blood, 40 ketones and greater than 50 RBCs. Negative for leukocytes or nitrites. Differential diagnosis includes but not limited to kidney stones, UTI, pyelonephritis, SBO 1746: Patient reevaluation she appears much more comfortable and reports improvement in pain after the 30 mg Toradol IV and 4 mg of Zofran. The 1 L normal saline bag has infused without difficulty. CBC shows no leukocytosis, sodium potassium BUN and creatinine are all within normal limits GFR is greater than 60. aging protocol: Computed tomography of the abdomen and pelvis without contrast. COMPARISON: CT ABD PELVIS WITH CONTRAST 08/07/2017 7:39 AM FINDINGS: Tubes, catheters and devices: Neural stimulator wires at L5-S1 with an electrode pack imbedded in the subcutaneous tissues of the lower back at the midline. Lungs: Dependent atelectasis in the lung bases. Liver: Normal. No mass. Gallbladder and bile ducts: Cholecystectomy. Pancreas: Normal. No ductal dilation. Spleen: Grossly stable small splenic cysts. Adrenal glands: Normal. No mass. Kidneys and ureters: 4-5 mm stone in the right renal collecting system at the UPJ causing moderate right hydronephrosis and perinephric soft tissue stranding. Stomach and bowel: Gastric bypass. Appendix: No evidence of appendicitis. Intraperitoneal space: Unremarkable. No free air. No significant fluid collection. Vasculature: Unremarkable. No abdominal aortic aneurysm. Lymph nodes: Unremarkable. No enlarged lymph nodes. Urinary bladder: Unremarkable as visualized. Reproductive: Hysterectomy. Bones/joints: Posterior beverly and pedicle screw fixation laminectomy L5-S1. Soft tissues: Unremarkable. IMPRESSION: 1. 4-5 mm stone at the right ureteropelvic junction with moderate right hydronephrosis and right perinephric soft tissue stranding 2. Other incidental findings as described At this time will give a strainer. There is no evidence of elevated BUN and creatinine are elevated kidney function no evidence of UTI. I do feel that patient is stable to be discharged home with close follow-up with urology within the next 2 to 3 days. Will prescribe Flomax and give her the first dose here. HPI General Mode of arrival: ambulatory. Date/Time Provider Initiated Documentation: 10/31/21 16:03. Limitations to Documentation: no limitations. Information obtained by: patient, RN notes reviewed and old records reviewed. HPI Narrative: 46-year-old female presents to the ER with chief complaint of right flank pain which began this morning. She reports nausea which started last night and this morning she woke up with right flank pain which radiates into her right groin. She reports pain is steadily increased throughout the day. She did take some Gas-X thinking that she had gas pains. She did vomit today denies any diarrhea. Denies any fever or chills. No chest pain shortness of breath or other associated symptoms. She does have a past surgical history of a gastric sleeve, cholecystectomy, endometrial biopsy and fallopian tube ligation, hysterectomy. Other past medical history includes GERD, depression, kidney stones, lumbar radiculopathy, obesity. Related Data Home Medications Medication Instructions Recorded Confirmed multivitamin-ferrous 1 tab PO DAILY 06/09/15 10/31/21 fumarate-folic acid 18 mg-400 mcg tablet (Multi Complete with Iron) Vitamin D 3,000 units PO DAILY 10/15/17 10/31/21 cholecalciferol (vitamin D3) 50 50 mcg PO DAILY #90 cap 06/03/20 10/31/21 mcg (2,000 unit) capsule prochlorperazine 25 mg rectal 25 mg OH Q12H PRN #12 each 06/03/20 10/31/21 suppository duloxetine 30 mg capsule,delayed 30 mg PO DAILY #90 cap 08/02/20 10/31/21 release duloxetine 60 mg capsule,delayed 60 mg PO DAILY #90 tab 10/07/20 09/19/21 release (Cymbalta) methylphenidate HCl 10 mg tablet 10 mg PO BID #56 tab MDD 20 mg 11/18/20 10/31/21 methylphenidate HCl 20 mg tablet 20 mg PO BID #56 tab MDD 40 mg 11/18/20 10/31/21 buspirone 5 mg tablet 30 mg PO BID 01/10/21 10/31/21 clonidine HCl 0.1 mg tablet 0.1 mg PO BID 03/11/21 10/31/21 erenumab-aooe 70 mg/mL 70 mg SUBCUT QMONTH 04/21/21 09/19/21 subcutaneous auto-injector (Aimovig Autoinjector) pregabalin 100 mg capsule (Lyrica) 100 mg PO TID #270 tab-cap 05/29/21 10/31/21 magnesium 200 mg tablet 200 mg PO DAILY 07/21/21 10/31/21 albuterol sulfate 90 mcg/actuation 1 - 2 puff INHALATION Q4H PRN #1 08/15/21 10/31/21 aerosol inhaler (ProAir HFA) inhaler benzonatate 100 mg capsule 100 mg PO TID PRN #30 cap 08/15/21 10/31/21 oxycodone 5 mg tablet 5 mg PO DAILY PRN #21 tab MDD 10 mg 09/19/21 10/31/21 omeprazole magnesium 20 mg 20 mg PO DAILY PRN #90 tab 09/20/21 10/31/21 tablet,delayed release (Prilosec OTC) ketorolac 10 mg tablet 10 mg PO TID PRN 4 Days #10 tab 10/31/21 tamsulosin 0.4 mg capsule (Flomax) 0.4 mg PO QHS 7 Days #7 cap 10/31/21 Previous Rx's Medication Instructions Recorded cholecalciferol (vitamin D3) 50 50 mcg PO DAILY #90 cap 06/03/20 mcg (2,000 unit) capsule prochlorperazine 25 mg rectal 25 mg OH Q12H PRN #12 each 06/03/20 suppository duloxetine 30 mg capsule,delayed 30 mg PO DAILY #90 cap 08/02/20 release duloxetine 60 mg capsule,delayed 60 mg PO DAILY #90 tab 10/07/20 release (Cymbalta) methylphenidate HCl 10 mg tablet 10 mg PO BID #56 tab MDD 20 mg 11/18/20 methylphenidate HCl 20 mg tablet 20 mg PO BID #56 tab MDD 40 mg 11/18/20 pregabalin 100 mg capsule (Lyrica) 100 mg PO TID #270 tab-cap 05/29/21 albuterol sulfate 90 mcg/actuation 1 - 2 puff INHALATION Q4H PRN #1 08/15/21 aerosol inhaler (ProAir HFA) inhaler benzonatate 100 mg capsule 100 mg PO TID PRN #30 cap 08/15/21 oxycodone 5 mg tablet 5 mg PO DAILY PRN #21 tab MDD 10 mg 09/19/21 omeprazole magnesium 20 mg 20 mg PO DAILY PRN #90 tab 09/20/21 tablet,delayed release (Prilosec OTC) ketorolac 10 mg tablet 10 mg PO TID PRN 4 Days #10 tab 10/31/21 tamsulosin 0.4 mg capsule (Flomax) 0.4 mg PO QHS 7 Days #7 cap 10/31/21 Allergies Allergy/AdvReac Type Severity Reaction Status Date / Time adhesive tape Allergy Intermediate Raw Skin Verified 10/31/21 16:37 bee pollen [Bee Pollen] Allergy Intermediate Large Verified 10/31/21 16:37 local reaction codeine [Codeine] AdvReac Intermediate NAUSEA/VOMI Verified 10/31/21 16:37 TING General Stated Complaint: Abd Prob CUAHUTEMOC: 3 Review of Systems All systems reviewed & are unremarkable except as noted in HPI and below Gastrointestinal Gastrointestinal: Reports abdominal pain, Reports nausea and Reports vomiting Genitourinary Genitourinary: Reports as per HPI and Reports other (Flank pain) PFSH All Active Problems (Updated 10/31/21 @ 18:30 by Rosy Herrera) Kidney stone on right side (Acute) Pain, joint, knee, right (Acute) 01/20- being seen at [facility] pain clinic- synvisc Chronic pain (Chronic) Pain clinic [facility]- SI & Cervical steroid injections Vasomotor symptoms due to menopause (Acute) 09/2019. Laparoscopic bilateral salpingectomy for treatment of pelvic pain. VMS after surgery present but tolerable Urinary incontinence, mixed (Chronic 08/11/15) Smoker (Chronic 07/11/17) vaping Osteoarthritis of right knee (Chronic 01/06/15) Migraine (Chronic) Low back pain (Chronic) spinal fusion L-S; nerve stimulator implanted Hypersomnia (Chronic 07/10/16) Gastroesophageal reflux disease (Chronic) Dyspareunia (Chronic 02/01/17) Depressive disorder (Chronic) Degeneration of cervical intervertebral disc (Chronic 09/18/12) Elsy iqbal for injections Chronic right shoulder pain (Chronic 04/03/18) Bipolar disorder (Chronic) Bilateral sacroiliitis (Chronic 07/10/16) Attention deficit hyperactivity disorder (ADHD), 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 Normal pelvic and abdominal ultrasound. 10/2017 Depo-Lupron 11.25 mg IM Depression Multifactorial. Currently dealing with achieving custody of her granddaughter from her daughter. GERD (gastroesophageal reflux disease) Hand pain, right 07/2020- seeing OT History of tobacco use Idiopathic peripheral neuropathy Kidney stone Lower abdominal pain (10/22/17) Rx with DepoLupron 11.25mg x1 10/22/17. Lumbar radiculopathy, acute Menorrhagia (05/06/14) Obesity Status post bariatric surgery Os trigonum syndrome Posttraumatic stress disorder Right cervical radiculopathy (04/03/16) better since spinal fusion Spinal stenosis (05/12/15) Substance abuse Tarsal tunnel syndrome Tarsal tunnel syndrome S/P RIGHT 11/13/11 ([facility]) operated on right foot- stable Tobacco use Surgical History Cholecystectomy (~1997) Endometrial Biopsy 05/10/14;[facility] History of bilateral ligation of fallopian tubes History of bilateral salpingo-oophorectomy 09/09/2021 treat chronic pelvic pain. Patient had been pretreated for approximately 2 years with Depo. Lupron History of gynecological procedure History of spinal fusion >5 years Hysterectomy, Laproscopic (~10/2016) Ovaries conserved. Postop vaginal cuff hematoma managed expectantly. EP Ligation of fallopian tube sleeve gastrectomy (~2015) [facility] Spinal Fusion (~2006) nerve stimulator implanted Status post cholecystectomy Social History Smoking/Tobacco Use Status: Current every day Tobacco Type: e-cigarettes Quit status: not considering quitting Second Hand Exposure: Yes Smoking risk assessment performed?: Yes Alcohol Intake: current Alcohol Intake frequency: holidays/special occasions only Alcohol type: hard liquor Details: OCCASIONAL Drug use: Never Substance use type: does not use Caregiver/Support person: No Household members: spouse, family and children Housing: house Number of Children: 3 number of grandchildren: 3 Pets and animals: Yes Pets and animals: cat(s) and dog(s) Sexually active: Yes Do you think of yourself as: straight/heterosexual Current gender identity: female Other: 09/01/20 Favio Rooney What is your relationship status?: How often do you talk on the phone with friends or family?: three or more times per week How often do you get together with friends or relatives?: twice per week Do you belong to any clubs or organized social groups?: no Panel score (0-1 are the most socially isolated patients): 2 What type of physical activity do you participate in: walking Cindy/Latter Day: None Special cindy needs: No Seatbelt use: always Helmet use: No Drive intox or ride w/intox combine driver: No Do you feel safe at home: Yes Do you feel safe in your relationship?: Yes Additional Social history: Daughter Valente is Merry's mother. Daughter Selena is currently Female Reproductive History Menstrual Menopause type: surgical History History 3 Para Hx # Term Pregnancies 3 Multiple births Hx # Pregnancies Ectopic pregnancies AB induced Hx Number of Living Children AB spontaneous Exam Narrative Exam Narrative: Constitutional: Alert and oriented x3. Appears stated age. Obese body habitus. Patient is in distress and appears to be resting on the bed. Head: Normocephalic, no trauma. Eyes: Pupils PERRL, Red reflex noted, EOM's intact. Eyelids symmetrical without lesions, discharge, or swelling. ENT: Bilateral TM's WNL, External ear normal to inspection, no mastoid TTP, swelling, or erythema, Nasal turbinates WNL, no nasal discharge. Normal dentition, Posterior pharynx WNL, no exudate. Chest: RRR, Normal S1, S2, distal pulses intact. Resp: Lungs clear to auscultation bilaterally, no wheezes, rales, or rhonchi. Abdomen: Soft, non-distended, Normoactive bowel sounds all 4 quads. Tenderness right upper quadrant right lower quadrant. Musculoskeletal: Unable to assess gait5/5 strength to all four extremities. Skin: No suspicious rashes or lesions. Capillary refill less than 2 sec. Neurologic: Cranial nerves II-XII intact. Alert and oriented x 3. Motor: No deficits noted. Sensory: Intact bilaterally all 4 extremities. Reflexes: DTR's intact bilaterally.. Hematologic/Lymphatic: No ecchymosis, no lymphadenopathy. Course Vital Signs Vital signs: Vital Signs Temperature 36.6 C 10/31/21 16:35 Pulse 62 10/31/21 16:35 Blood Pressure 133/85 10/31/21 16:35 Pulse Oximetry 97 10/31/21 16:35 Temperature 36.6 C 10/31/21 16:35 Temperature Source Oral 10/31/21 16:35 Pulse 62 10/31/21 16:35 Respiratory Effort 10/31/21 16:25 Blood Pressure 133/85 10/31/21 16:35 Pulse Oximetry 97 10/31/21 16:35 Oxygen Delivery Method Room Air 10/31/21 16:35 Oxygen Flow Rate 0 10/31/21 16:35 Pain Level 10 10/31/21 16:25 Lab/Test Results Lab/Test Results: Laboratory Tests Range/Units 10/31/21 16:30 Urine Color (Yellow) Yellow Urine Clarity (Clear) Cloudy Urine pH (5-8) 8.5 H Ur Specific [place] (1.005-1.025) 1.025 Urine Protein (Negative) mg/dL 30 H Urine Ketones (Negative) mg/dL 40 H Urine Blood (Negative) Large H Urine Nitrite (Negative) Negative Urine Bilirubin (Negative) Negative Urine Urobilinogen (Up TO 0.2) EU/dL 0.2 Ur Leukocyte Esterase (Negative) Negative Urine RBC (0-2) HPF >50 H Urine WBC (0-5) HPF 3-5 Ur Epithelial Cells (Negative) HPF Negative Urine Crystals (Negative) HPF Many Amorphous Urine Bacteria (Negative) HPF Negative Urine Casts (Negative) LPF Negative Urine Mucus (Negative) Negative Urine Other (Negative) Negative Ur Culture Indicated? No Urine Glucose (Negative) mg/dL Negative
[2021-10-31] MEDS: Ondansetron 4 MG/2 ML VIAL IVP (16:55)
[2021-10-31] MEDS: Ketorolac 30 MG/ML VIAL IVP (17:00)
[2021-10-31 17:04] LABS: Abs Immature Grans 0.04 10^3/uL (0.0-0.06); Absolute Basophil Count 0.04 10^3/uL (0.0-0.2); Absolute Lymphocyte Count 1.02 10^3/uL (1.2-3.4); Absolute Monocyte Count 0.22 10^3/uL (0.1-0.8); Absolute Neutrophil Count 8.23 10^3/uL (1.2-6.7); Basophils % 0.4; HCT 41.7 % (36.0-46.0); Immature Grans % 0.4; Lymphocytes % 10.7; MCH 30.2 pg (27.0-33.0); MCHC 33.6 % (32.0-36.0); MCV 90.1 fL (80-95); MPV 9.8 fL (8.0-11.0); Monocytes % 2.3; Neutrophils % 86.2; Nucleated RBC 0 %; Platelet Count 285 10^3/uL (130-400); RBC 4.63 10^6/uL (3.93-5.22); RDW 13.9 % (11.7-14.6); RDW-SD 45.9 fL; WBC 9.55 10^3/uL (4.4-10.8)
[2021-10-31 17:19] LABS: ALT 24 U/L (14-59); AST 18 U/L (15-37); Albumin 3.8 g/dL (3.4-5.0); Alkaline Phosphatase 69 U/L (46-116); Anion Gap 8.5 mmol/L (3-11); BUN 12 mg/dL (7-18); Bilirubin, Total 0.5 mg/dL (0.2-1.0); CO2 26.5 mmol/L (21.0-32.0); CREATININE 0.8 mg/dL (0.55-1.02); Chloride 101 mmol/L (98-107); Glucose 101 mg/dL (74-106); Potassium 4.1 mmol/L (3.5-5.1); Sodium 136 mmol/L (136-145); Total Protein 7.2 g/dL (6.4-8.2)
--- NOTE | 2021-10-31 18:23 | DI.VRAD_ITS ---
Addendum created by Nydia Hwang MD on 10/31/2021 6:43:50 PM EST: Addendum: Bilateral fat containing inguinal hernias, larger on the left. Initial report created on 10/31/2021 6:23:13 PM EST: PROCEDURE INFORMATION: Exam: CT Abdomen And Pelvis Without Contrast Exam date and time: 10/31/2021 4:44 PM Age: 46 years old Clinical indication: Abdominal pain; Flank; Right; Additional info: Right flank pain TECHNIQUE: Imaging protocol: Computed tomography of the abdomen and pelvis without contrast. Radiation optimization: All CT scans at this facility use at least one of these dose optimization techniques: automated exposure control; mA and/or kV adjustment per patient size (includes targeted exams where dose is matched to clinical indication); or iterative reconstruction. COMPARISON: CT ABD PELVIS WITH CONTRAST 08/07/2017 7:39 AM FINDINGS: Tubes, catheters and devices: Neural stimulator wires at L5-S1 with an electrode pack imbedded in the subcutaneous tissues of the lower back at the midline. Lungs: Dependent atelectasis in the lung bases. Liver: Normal. No mass. Gallbladder and bile ducts: Cholecystectomy. Pancreas: Normal. No ductal dilation. Spleen: Grossly stable small splenic cysts. Adrenal glands: Normal. No mass. Kidneys and ureters: 4-5 mm stone in the right renal collecting system at the UPJ causing moderate right hydronephrosis and perinephric soft tissue stranding. Stomach and bowel: Gastric bypass. Appendix: No evidence of appendicitis. Intraperitoneal space: Unremarkable. No free air. No significant fluid collection. Vasculature: Unremarkable. No abdominal aortic aneurysm. Lymph nodes: Unremarkable. No enlarged lymph nodes. Urinary bladder: Unremarkable as visualized. Reproductive: Hysterectomy. Bones/joints: Posterior beverly and pedicle screw fixation laminectomy L5-S1. Soft tissues: Unremarkable. IMPRESSION: 1. 4-5 mm stone at the right ureteropelvic junction with moderate right hydronephrosis and right perinephric soft tissue stranding 2. Other incidental findings as described Dictated and Authenticated by: Nydia Hwang MD. Ordering:MARIA LUZ Gallegos MD
--- NOTE | 2021-10-31 18:31 | NUR.NOTE ---
Nursing Note: Referral given to Care Management to establish care/4mm UPJ stone on right with PCP within 1 week. Referral faxed to [facility] Urology for 4mm UPJ stone on right within 2 to 3 days. Corrina Prabhakar
[2021-10-31 18:46] VITALS: BP 121/75; PULSE 73; TEMP 36.9; O2SAT 97
[2021-10-31] MEDS: Tamsulosin 0.4 MG CAPCR PO (18:55)
[2021-10-31] MEDS: Ondansetron O.D.T. 4 MG TABEF, 3 TABS/BTL PO (18:55)
[2021-10-31 19:04] VITALS: BP 121/75; PULSE 73; RESP 14; TEMP 36.9; O2SAT 97
--- NOTE | 2021-11-01 09:34 | CMACTNOTE_ITS ---
- If Service Date Differs Date of service: 11/01/21 Time of Service: 09:34 Care Management Activity Note Tia is seen in the ED for right flank pain. The ED provider requests that CM assist Tia in establishing care with a PCP. A review of her chart reveals that she may already be established at [facility]. MARTA telephones Holly, customer care team coach at [facility], and is informed that Tia has transferred her care to the [facility]. MARTA then calls the [facility] and speaks with Chidi in mental hygiene consultant who states that Tia has a new patient appointment on December 15, 2021 at 11:[address] Curtis Burns. CM requests that they contact Tia directly to schedule a sooner appointment as a follow up to her ED visit.
== END 2021-10-31 19:07 | disposition home or self-care (01) ==
PROVIDERS: Emergency Provider Registered Nurse Emergency; PCP Family Medicine
DX: N20.0 Calculus of kidney (principal); R11.0 Nausea
CPT/HCPCS: 36415; 80053; 96361; 96374; 96375; 99284; 74176; 81003; 81015; 85025; 99283; J1885; J2405

== ENCOUNTER → 2021-11-02 13:43 | Outpatient (BNVA) | payer MEDICARE, SELFPAY | PROVIDERS: PCP Family Medicine; Referring Provider Family Medicine; Visit Provider Urology | DX: R10.31 Right lower quadrant pain (principal); R11.0 Nausea; N20.0 Calculus of kidney | CPT/HCPCS: 81003; 99215 ==

== ENCOUNTER 2021-11-03 01:55 | Outpatient (CLI) | payer MEDICARE, SELFPAY ==
[2021-11-03 12:11] LABS: Source Nasal/Nares
[2021-11-03 14:55] LABS: COVID-19 PCR Negative (Negative)
== END 2021-11-03 01:56 | disposition home or self-care (01) ==
LOC: LBO 01:55
PROVIDERS: PCP Family Medicine; Visit Provider Urology
DX: Z20.822 Contact with and (suspected) exposure to COVID-19 (principal)
CPT/HCPCS: 87635; U0005

== ENCOUNTER 2021-11-06 07:29 | Day surgery (SDC) | payer MEDICARE, SELFPAY ==
--- NOTE | 2021-11-06 07:01 | W.ANESPRE ---
General Info Date of Service Date Performed: 11/06/21 Height: 5 ft 8 in Weight: 77.79 kg Body Mass Index (BMI): 26.0 Surgical Procedure: Operation Date: 11/06/21 08:55 Proposed Procedure Side Surgeon p Cystoscopy/Laser/Retrograde/Ureteroscopy/Poss. Stent Placement Right Je Schuler MD Meds Allergies and Home Medications Allergies Allergy/AdvReac Type Severity Reaction Status Date / Time adhesive tape Allergy Intermediate Raw Skin Verified 11/06/21 07:56 bee pollen [Bee Pollen] Allergy Intermediate Large Verified 11/06/21 07:56 local reaction codeine [Codeine] AdvReac Intermediate NAUSEA/VOMI Verified 11/06/21 07:56 TING Home Medication Medication Instructions Recorded multivitamin-ferrous 1 tab PO DAILY 06/09/15 fumarate-folic acid 18 mg-400 mcg tablet (Multi Complete with Iron) Vitamin D 3,000 units PO DAILY 10/15/17 cholecalciferol (vitamin D3) 50 50 mcg PO DAILY #90 cap 06/03/20 mcg (2,000 unit) capsule prochlorperazine 25 mg rectal 25 mg GA Q12H PRN #12 each 06/03/20 suppository duloxetine 30 mg capsule,delayed 30 mg PO DAILY #90 cap 08/02/20 release duloxetine 60 mg capsule,delayed 60 mg PO DAILY #90 tab 10/07/20 release (Cymbalta) methylphenidate HCl 10 mg tablet 10 mg PO BID #56 tab MDD 20 mg 11/18/20 methylphenidate HCl 20 mg tablet 20 mg PO BID #56 tab MDD 40 mg 11/18/20 buspirone 5 mg tablet 30 mg PO BID 01/10/21 clonidine HCl 0.1 mg tablet 0.1 mg PO BID 03/11/21 erenumab-aooe 70 mg/mL 70 mg SUBCUT QMONTH 04/21/21 subcutaneous auto-injector (Aimovig Autoinjector) pregabalin 100 mg capsule (Lyrica) 100 mg PO TID #270 tab-cap 05/29/21 magnesium 200 mg tablet 200 mg PO DAILY 07/21/21 albuterol sulfate 90 mcg/actuation 1 - 2 puff INHALATION Q4H PRN #1 08/15/21 aerosol inhaler (ProAir HFA) inhaler benzonatate 100 mg capsule 100 mg PO TID PRN #30 cap 08/15/21 oxycodone 5 mg tablet 5 mg PO DAILY PRN #21 tab MDD 10 mg 09/19/21 omeprazole magnesium 20 mg 20 mg PO DAILY PRN #90 tab 09/20/21 tablet,delayed release (Prilosec OTC) tamsulosin 0.4 mg capsule (Flomax) 0.4 mg PO QHS 7 Days #7 cap 10/31/21 oxycodone 5 mg tablet 5 mg PO Q4H PRN #30 tab MDD 6 11/02/21 acetaminophen 500 mg tablet 1,000 mg PO Q6H PRN 11/06/21 sumatriptan succinate 3 mg/0.5 mL mg SUBCUT 11/06/21 subcutaneous pen injector Current Visit Medications: Current Medications Generic Name Dose Route Start Last Admin Trade Name Freq PRN Reason Stop Dose Admin Ringer's Solution 1,000 mls @ 80 mls/hr 11/06/21 06:00 IV 11/30/21 23:59 INFUSION ZINA Cefazolin Sodium/Dextrose 2 gm in 50 mls @ 100 mls/hr 11/06/21 06:00 Ancef Duplex IVPB 11/06/21 23:59 PREOP ZINA IV Miscellaneous Supplies 1 each 11/06/21 06:00 Iv Access IV 11/30/21 23:59 DIRECTED ZINA Sodium Chloride 0 ml 11/06/21 06:00 Normal Saline Flush 10 Ml Syr IV 11/30/21 23:59 PRN PRN Sodium Chloride 0 ml 11/06/21 06:00 Normal Saline 10 Ml Vial IJ 11/30/21 23:59 DIRECTED PRN Sterile Water 0 ml 11/06/21 06:00 Water,Injection,Sterile 10 Ml Vial IJ 11/30/21 23:59 DIRECTED PRN PFSH Active Problems Active Problems: Problem Status Onset Code Anxiety F41.9 Attention deficit hyperactivity disorder (ADHD), predominantly inattentive type 07/11/17 F90.0 Bilateral sacroiliitis 07/10/16 M46.1 Bipolar disorder F31.9 Chronic right shoulder pain 04/03/18 M25.511, G89.29 Degeneration of cervical intervertebral disc 09/18/12 M50.30 Depressive disorder F32.9 Dyspareunia 02/01/17 Gastroesophageal reflux disease K21.9 Hypersomnia 07/10/16 G47.10 Low back pain M54.5 Migraine G43.909 Osteoarthritis of right knee 01/06/15 M17.11 Smoker 07/11/17 F17.200 Urinary incontinence, mixed 08/11/15 N39.46 Vasomotor symptoms due to menopause N95.1 Chronic pain G89.29 Pain, joint, knee, right M25.561 Kidney stone on right side N20.0 Medical History Medical History Cellulitis of leg right lower extremity cellulitis Cellulitis of leg Cervicalgia Cervicalgia Cholelithiasis without obstruction S/P cholecystectomy Chronic pelvic pain in female Pelvic CT. Normal pelvic and abdominal ultrasound. 10/2017 Depo-Lupron 11.25 mg IM Depression Multifactorial. Currently dealing with achieving custody of her granddaughter from her daughter. GERD (gastroesophageal reflux disease) Hand pain, right 07/2020- seeing OT History of tobacco use Idiopathic peripheral neuropathy Kidney stone Lower abdominal pain (10/22/17) Rx with DepoLupron 11.25mg x1 10/22/17. Lumbar radiculopathy, acute Menorrhagia (05/06/14) Obesity Status post bariatric surgery Os trigonum syndrome Posttraumatic stress disorder Right cervical radiculopathy (04/03/16) better since spinal fusion Spinal stenosis (05/12/15) Substance abuse Pt. states she has been clean for over 22 years Tarsal tunnel syndrome Tarsal tunnel syndrome S/P RIGHT 11/13/11 (SEE SCANNED) operated on right foot- stable Tobacco use Surgical History Surgical History Cholecystectomy (~1997) Endometrial Biopsy 05/10/14;[facility] History of bilateral ligation of fallopian tubes History of bilateral salpingo-oophorectomy 09/09/2021 treat chronic pelvic pain. Patient had been pretreated for approximately 2 years with Depo. Lupron History of gynecological procedure History of spinal fusion >5 years Hysterectomy, Laproscopic (~10/2016) Ovaries conserved. Postop vaginal cuff hematoma managed expectantly. EP Ligation of fallopian tube sleeve gastrectomy (~2015) [facility] Spinal Fusion (~2006) nerve stimulator implanted Status post cholecystectomy Tobacco Smoking/Tobacco Use Status: Current every day Tobacco Type: e-cigarettes Passive smoking exposure: Yes Second hand exposure: Yes Alcohol Alcohol Intake: current Alcohol intake frequency: holidays/special occasions only Alcohol type: hard liquor Details: OCCASIONAL Substance Use Substance use: Current Sobriety Prental History History 3 Para Hx # Term Pregnancies 3 Multiple births Hx # Pregnancies Ectopic pregnancies AB induced Hx Number of Living Children AB spontaneous Vital Signs and Lab Results Lab Results Blood Type / Crossmatch: No Data to Display Complete Blood Count: White Blood Count 9.55 10^3/uL (4.4-10.8) 10/31/21 16:24 10/31/21 Red Blood Count 4.63 10^6/uL (3.93-5.22) 10/31/21 16:24 10/31/21 Hemoglobin 14.0 g/dL (11.2-15.7) 10/31/21 16:24 10/31/21 Hematocrit 41.7 % (36.0-46.0) 10/31/21 16:10/31/21 Platelet Count 285 10^3/uL (130-400) 10/31/21 16:24 10/31/21 Complete Metabolic Panel: Sodium Level 136 mmol/L (136-145) 10/31/21 16:24 10/31/21 Potassium Level 4.1 mmol/L (3.5-5.1) 10/31/21 16:24 10/31/21 Chloride Level 101 mmol/L (98-107) 10/31/21 16:10/31/21 Carbon Dioxide Level 26.5 mmol/L (21.0-32.0) 10/31/21 16:10/31/21 Blood Urea Nitrogen 12 mg/dL (7-18) 10/31/21 16:24 10/31/21 Creatinine 0.8 mg/dL (0.55-1.02) 10/31/21 16:10/31/21 Estimated GFR/1.73 m2 >= 60.00 (mL/min/1.73m2) 10/31/21 16:24 10/31/21 Calcium Level 9.0 mg/dL (8.5-10.1) 10/31/21 16:10/31/21 Albumin 3.8 g/dL (3.4-5.0) 10/31/21 16:24 10/31/21 Glucose Level 101 mg/dL (74-106) 10/31/21 16:24 10/31/21 Liver Function Panel: Alanine Aminotransferase (ALT/SGPT) 24 U/L (14-59) 10/31/21 16:24 10/31/21 Aspartate Amino Transf (AST/SGOT) 18 U/L (15-37) 10/31/21 16:24 10/31/21 Coagulation Panel: No Data to Display Cardiac Panel: No Data to Display Arterial Blood Gas: No Data to Display Venous Blood Gas: No Data to Display Pancreas Panel: No Data to Display Thyroid Panel: No Data to Display Infectious Disease: Coronavirus (COVID-19)(PCR) Negative (Negative) 11/03/21 10:54 11/03/21 Coronavirus 2019 Source Nasal/Nares 11/03/21 10:54 11/03/21 Blood Cultures: No Data to Display Toxicology Panel: No Data to Display Panel: No Data to Display Anesthesia Assessment and Plan Anesthesia History Personal History: No History of Anesthesia Complications Family History: No Family History of Anesthesia Complications Exercise Tolerance Exercise Tolerance: Metabolic Equivalents>4 Pertinent Negatives Pertinent Negatives: No Symptoms of GERD, No Major Cardiovascular Symptoms or Complaints, No Major Pulmonary Symptoms or Complaints and No History of CVA/TIA Cardiac & Pulmonary Exam Cardiac Exam: Normal S1/S2 Heart Sounds Pulmonary Exam: Clear Bilateral Breath Sounds Implantable Cardiac Device Does patient have a Pacemaker or an ICD?: No Airway Exam Known Difficult Airway: No Mallampati Class: 2 Mouth Opening: Normal (> 3cm) Thyromental Distance: Greater than 3 cm Neck Range of Motion: Full ROM Neck Circumference: Normal Teeth Condition: Edentulous ASA Classification ASA Score: ASA 2 Emergency Case?: No NPO Status NPO Status: NPO Clears >2 hours, Solids >8 hours Status Status: Not Relevant due to Medical History Anesthesia Plan Resuscitation Status: Full Code Anesthesia Technique: General Anesthesia Airway Planned: Natural Airway Monitors Used: Standard Monitors
[2021-11-06 07:46] VITALS: BP 128/81; PULSE 79; RESP 16; TEMP 36.4; O2SAT 98
--- NOTE | 2021-11-06 08:16 | W.PM.HP.N ---
Date of service: 11/06/21 Time of Service: 08:17 Assessment and Plan Assessment and plan (1) Kidney stone on right side: Status: Acute Assessment and plan: At the time of her presentation, her stone was in the right proximal ureter. We will do a retrograde pyelogram to assess whether the stone migrated distally at all. We will then be prepared to do ureteroscopy/holmium laser lithotripsy to deal with the stone. History of Present Illness History of Present Illness Chief Complaint: right ureteral stone Narrative: This is a 46-year-old woman who is seen for the first time in our office.? She describes a prior history of kidney stones about 25 years ago.? She tells me that no surgery was required for her initial stone.? She recalls that the stone was analyzed and she was told it was calcium based. She presented to our emergency department about 2 days ago.? At that time, she had pain in the right flank that radiated to the right anterior abdomen.? She had nausea that began about 24 hours before her ER presentation.? She had no fevers or gross hematuria initially. On evaluation in the emergency department, she was found to have a right proximal ureteral stone.? She was discharged with oral Toradol but no narcotics. Since that time, she has had persistent right flank pain and nausea.? She is now seeing some discoloration to the urine.? She may have passed a very small fragment of stone, but not the entire stone.? She still does not have any fevers or chills. She has no history of gout or hyperparathyroid disease.? She did have gastric bypass surgery about 6 or 7 years ago. She does have a history of chronic pain and chronic opioid use.? She has recently been weaned off of daily oxycodone that had been prescribed by her primary care providers.? She also sees the pain management center at the [facility] for injection therapy. She does not have an active narcotic prescription.? She is transitioning to a new primary care provider at [facility] and has her first appointment with them in December.? Her previous pain management contract with the providers at [facility] is no longer in effect.? Review of Systems Narrative: No fevers or chills c/o rhinorrhea. No vision change or dysphasia No diabetes or thyroid dysfunction No shortness of breath, cough or hemoptysis No chest pain or palpitations Hx GERD. No hepatitis, ulcers, jaundice Hx migraines. No seizures, strokes or peripheral neuropathy No bleeding disorders or anemia No gout PFSH All Active Problems Anxiety (Chronic) Attention deficit hyperactivity disorder (ADHD), 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) Bilateral sacroiliitis (Chronic 07/10/16) Bipolar disorder (Chronic) Chronic right shoulder pain (Chronic 04/03/18) Degeneration of cervical intervertebral disc (Chronic 09/18/12) Elsy iqbal for injections Depressive disorder (Chronic) Dyspareunia (Chronic 02/01/17) Gastroesophageal reflux disease (Chronic) Hypersomnia (Chronic 07/10/16) Low back pain (Chronic) spinal fusion L-S; nerve stimulator implanted Migraine (Chronic) Osteoarthritis of right knee (Chronic 01/06/15) Smoker (Chronic 07/11/17) vaping Urinary incontinence, mixed (Chronic 08/11/15) Vasomotor symptoms due to menopause (Acute) 09/2019. Laparoscopic bilateral salpingectomy for treatment of pelvic pain. VMS after surgery present but tolerable Chronic pain (Chronic) Pain clinic [facility]- SI & Cervical steroid injections Pain, joint, knee, right (Acute) 01/20- being seen at [facility] pain clinic- synvisc Kidney stone on right side (Acute) Medical History Cellulitis of leg right lower extremity cellulitis Cellulitis of leg Cervicalgia Cervicalgia Cholelithiasis without obstruction S/P cholecystectomy Chronic pelvic pain in female Pelvic CT. Normal pelvic and abdominal ultrasound. 10/2017 Depo-Lupron 11.25 mg IM Depression Multifactorial. Currently dealing with achieving custody of her granddaughter from her daughter. GERD (gastroesophageal reflux disease) Hand pain, right 07/2020- seeing OT History of tobacco use Idiopathic peripheral neuropathy Kidney stone Lower abdominal pain (10/22/17) Rx with DepoLupron 11.25mg x1 10/22/17. Lumbar radiculopathy, acute Menorrhagia (05/06/14) Obesity Status post bariatric surgery Os trigonum syndrome Posttraumatic stress disorder Right cervical radiculopathy (04/03/16) better since spinal fusion Spinal stenosis (05/12/15) Substance abuse Pt. states she has been clean for over 22 years Tarsal tunnel syndrome Tarsal tunnel syndrome S/P RIGHT 11/13/11 (SEE SCANNED) operated on right foot- stable Tobacco use Surgical History Cholecystectomy (~1997) Endometrial Biopsy 05/10/14;[facility] History of bilateral ligation of fallopian tubes History of bilateral salpingo-oophorectomy 09/09/2021 treat chronic pelvic pain. Patient had been pretreated for approximately 2 years with Depo. Lupron History of gynecological procedure History of spinal fusion >5 years Hysterectomy, Laproscopic (~10/2016) Ovaries conserved. Postop vaginal cuff hematoma managed expectantly. EP Ligation of fallopian tube sleeve gastrectomy (~2015) [facility] Spinal Fusion (~2006) nerve stimulator implanted Status post cholecystectomy Social History Smoking/Tobacco Use Status: Current every day Tobacco Type: e-cigarettes Quit status: not considering quitting Second Hand Exposure: Yes Smoking risk assessment performed?: Yes Alcohol Intake: current Alcohol Intake frequency: holidays/special occasions only Alcohol type: hard liquor Details: OCCASIONAL Drug use: Current Sobriety Details: Marijuana for pain mgmt. Last used 6 months ago Caregiver/Support person: No Household members: spouse, family and children Housing: house Number of Children: 3 number of grandchildren: 3 Pets and animals: Yes Pets and animals: cat(s) and dog(s) Sexually active: Yes Do you think of yourself as: straight/heterosexual Current gender identity: female Other: 09/01/20 Favio Rooney What is your relationship status?: How often do you talk on the phone with friends or family?: three or more times per week How often do you get together with friends or relatives?: twice per week Do you belong to any clubs or organized social groups?: no Panel score (0-1 are the most socially isolated patients): 2 What type of physical activity do you participate in: walking Cindy/Uatsdin: None Special cindy needs: No Seatbelt use: always Helmet use: No Drive intox or ride w/intox driver/guide: No Do you feel safe at home: Yes (Spouse in room) Do you feel safe in your relationship?: Yes Female Reproductive History Menstrual Menopause type: surgical History History 3 Para Hx # Term Pregnancies 3 Multiple births Hx # Pregnancies Ectopic pregnancies AB induced Hx Number of Living Children AB spontaneous Meds Allergies and Home Medications Allergies Allergy/AdvReac Type Severity Reaction Status Date / Time adhesive tape Allergy Intermediate Raw Skin Verified 11/06/21 07:56 bee pollen [Bee Pollen] Allergy Intermediate Large Verified 11/06/21 07:56 local reaction codeine [Codeine] AdvReac Intermediate NAUSEA/VOMI Verified 11/06/21 07:56 TING Home Medications Medication Instructions Recorded Confirmed Type multivitamin-ferrous 1 tab PO DAILY 06/09/15 11/06/21 History fumarate-folic acid 18 mg-400 mcg tablet (Multi Complete with Iron) Vitamin D 3,000 units PO DAILY 10/15/17 11/06/21 History cholecalciferol (vitamin D3) 50 50 mcg PO DAILY #90 cap 06/03/20 11/06/21 Rx mcg (2,000 unit) capsule prochlorperazine 25 mg rectal 25 mg MD Q12H PRN #12 each 06/03/20 11/06/21 Rx suppository duloxetine 30 mg capsule,delayed 30 mg PO DAILY #90 cap 08/02/20 11/06/21 Rx release duloxetine 60 mg capsule,delayed 60 mg PO DAILY #90 tab 10/07/20 11/06/21 Rx release (Cymbalta) methylphenidate HCl 10 mg tablet 10 mg PO BID #56 tab MDD 20 mg 11/18/20 11/06/21 Rx methylphenidate HCl 20 mg tablet 20 mg PO BID #56 tab MDD 40 mg 11/18/20 11/06/21 Rx buspirone 5 mg tablet 30 mg PO BID 01/10/21 11/06/21 History clonidine HCl 0.1 mg tablet 0.1 mg PO BID 03/11/21 11/06/21 History erenumab-aooe 70 mg/mL 70 mg SUBCUT QMONTH 04/21/21 11/06/21 History subcutaneous auto-injector (Aimovig Autoinjector) pregabalin 100 mg capsule (Lyrica) 100 mg PO TID #270 tab-cap 05/29/21 11/06/21 Rx magnesium 200 mg tablet 200 mg PO DAILY 07/21/21 11/06/21 History albuterol sulfate 90 mcg/actuation 1 - 2 puff INHALATION Q4H PRN #1 08/15/21 11/06/21 Rx aerosol inhaler (ProAir HFA) inhaler benzonatate 100 mg capsule 100 mg PO TID PRN #30 cap 08/15/21 11/06/21 Rx oxycodone 5 mg tablet 5 mg PO DAILY PRN #21 tab MDD 10 mg 09/19/21 11/06/21 Rx omeprazole magnesium 20 mg 20 mg PO DAILY PRN #90 tab 09/20/21 11/06/21 Rx tablet,delayed release (Prilosec OTC) tamsulosin 0.4 mg capsule (Flomax) 0.4 mg PO QHS 7 Days #7 cap 10/31/21 11/06/21 Rx oxycodone 5 mg tablet 5 mg PO Q4H PRN #30 tab MDD 6 11/02/21 11/06/21 Rx acetaminophen 500 mg tablet 1,000 mg PO Q6H PRN 11/06/21 11/06/21 History sumatriptan succinate 3 mg/0.5 mL mg SUBCUT 11/06/21 History subcutaneous pen injector Exam Const General: cooperative and anxious Neck Neck: supple Resp Effort & Inspection: normal respiratory effort Auscultation: clear to auscultation bilaterally Cardio Rate: regular rate Rhythm: regular rhythm GI Palpation: soft and no guarding Neuro General: patient alert, patient awake and patient oriented x3 Results Last Vital Signs Temp 36.4 C L 11/06/21 07:46 Pulse 79 11/06/21 07:46 Resp 16 11/06/21 07:46 BP 128/81 11/06/21 07:46 Pulse Ox 98 11/06/21 07:46
[2021-11-06] MEDS: Lactated Ringers 1,000 ML 80 ML IV (08:21)
[2021-11-06 08:42] VITALS: BMI 26.0
[2021-11-06] MEDS: Acetaminophen 500 MG TAB 1000 MG PO (08:54)
[2021-11-06] MEDS: ceFAZolin 2 GM/50 ML BAG IVPB (09:09)
[2021-11-06] MEDS: Lidocaine 2% Jelly 6 ML SYR (09:17)
[2021-11-06] MEDS: Omnipaque 300 MG/ML 50 ML BTL (09:20)
--- NOTE | 2021-11-06 09:35 | DI.RAD_ITS ---
Exam(s) XR RETROGRADE IN OR EXAM: XR RETROGRADE IN OR CLINICAL HISTORY: RIGHT KIDNEY STONE. TECHNIQUE: Fluoroscopy was provided for the referring physician for guidance with performing retrogr bro procedure. For hard copy images COMPARISON: CT CT RENAL COLIC WO from 10/31/2021 FINDINGS: Hard copy images show placement of a right ureteral stent. Please see procedure note for details. Fluoro time: 30.1 seconds RADIATION DOSE DELIVERED: Karir=5.32 mGy
--- NOTE | 2021-11-06 09:42 | W.PM.DSUDISC ---
Discharge Plan Disposition Patient Disposition: HOME Condition: Stable Discharge Details Reason For Visit: ureteroscopy Attending Provider: Je Schuler Primary Care Provider: Curtis Burns Home Meds and New Rx's Prescriptions: No Action cholecalciferol (vitamin D3) 50 mcg (2,000 unit) capsule 50 mcg PO DAILY Qty: 90 3RF prochlorperazine 25 mg suppository 25 mg AR Q12H PRN (Reason: nausea and vomiting) Qty: 12 3RF Aimovig Autoinjector 70 mg/mL auto-injector 70 mg subcut QMONTH 0RF albuterol sulfate [ProAir HFA] 90 mcg/actuation HFA aerosol inhaler 1 - 2 puff Inhalation Q4H PRN Qty: 1 6RF benzonatate 100 mg capsule 100 mg PO TID PRN (Reason: cough) Qty: 30 0RF magnesium 200 mg tablet 200 mg PO DAILY 0RF oxycodone 5 mg tablet 5 mg PO DAILY MDD 10 mg PRN (Reason: pain) Qty: 21 0RF Label Comments: pt. reports she no longer has this medication Rx Instructions: one tab daily x 2 weeks, one tab every other day x 2 weeks, then d/c buspirone 5 mg tablet 30 mg PO BID 0RF oxycodone 5 mg tablet 5 mg PO Q4H MDD 6 PRN (Reason: pain) Qty: 30 0RF Multi Complete with Iron 1 EACH tablet 1 tab PO DAILY 0RF vitamin d 3,000 units PO DAILY 0RF duloxetine 30 mg capsule,delayed release(DR/EC) 30 mg PO DAILY Qty: 90 4RF Rx Instructions: Take with 60 mg cap duloxetine [Cymbalta] 60 mg capsule,delayed release(DR/EC) 60 mg PO DAILY Qty: 90 4RF methylphenidate HCl 20 mg tablet 20 mg PO BID MDD 40 mg Qty: 56 0RF Rx Instructions: Take with 10 mg tab methylphenidate HCl 10 mg tablet 10 mg PO BID MDD 20 mg Qty: 56 0RF Rx Instructions: Take with 20 mg for total dose of 30 mg pregabalin [Lyrica] 100 mg capsule 100 mg PO TID Qty: 270 0RF omeprazole magnesium [Prilosec OTC] 20 mg tablet,delayed release (DR/EC) 20 mg PO DAILY PRN (Reason: heartburn) Qty: 90 3RF sumatriptan succinate 3 mg/0.5 mL Pen Injector SUBCUT 0RF acetaminophen [Tylenol Ex Str Rapid Release] 500 mg Tablet 1,000 mg PO Q6H PRN0RF clonidine HCl 0.1 mg tablet 0.1 mg PO BID 0RF Label Comments: TAKE 1 TABLET BY MOUTH TWICE DAILY tamsulosin [Flomax] 0.4 mg capsule 0.4 mg PO QHS 7 Days Qty: 7 0RF Discharge Instructions Additional Instructions: Followup 2 to 3 days for stent removal - tell my office that pt has string on her stent Followup appt with me @ 6 weeks with renal US No need to strain urine Resume all home meds Activity:: Activity as Tolerated Shower/Bathe:: 24 hours Diet:: As Tolerated Discharge Orders Discharge Orders: Discharge Order (Routine); Ordered 11/06/21 Ordered By: Je Schuler DS: Diagnosis Discharge Diagnosis (1) Kidney stone on right side: Status: Acute
[2021-11-06 09:44] VITALS: BP 114/64; PULSE 70; RESP 12; TEMP 36.4; O2SAT 97
[2021-11-06 09:49] VITALS: BP 137/76; PULSE 74; RESP 15; TEMP 36.4; O2SAT 98
--- NOTE | 2021-11-06 09:50 | ROE_ITS ---
Date of service: 11/06/21 Time of Service: 09:50 Operative Note Operative Note DATE OF PROCEDURE: 11/06/21 PRE-OP DIAGNOSIS: Right ureteral stone PROCEDURE: Cystoscopy, right retrograde pyelogram, right flexible ureteroscopy with stone extraction, insert right ureteral stent SURGEON: Je Schuler ANESTHESIA TYPE: General:No Airway Refer to Anesthesia Record ESTIMATED BLOOD LOSS: 5 PATHOLOGY: other (stone for chemical analysis) COMPLICATIONS: None Patient was transported to: PACU Patient's condition: stable Implants: 4.8 Vietnamese by 22 to 30 cm right ureteral stent Indications: This is a 46-year-old woman who presented to the emergency department with right flank pain. Evaluation, she was found to have a 4 mm proximal ureteral stone with hydronephrosis. She remains symptomatic with conservative management. She presents for stone manipulation. Findings: stone bumped back into midpole calyx - extracted in Zerotip stone basket Procedure Description: Patient was brought to the operating room on 11/06/2021. She was given preoperative IV antibiotics. After successful induction of general anesthesia, she was placed in the dorsal lithotomy position. Genitalia was prepped and draped sterilely. 2% Xylocaine jelly was instilled into the urethra to act as a local anesthetic. A 22 Vietnamese rigid cystoscope was then passed through the urethra into the bladder. The bladder was inspected with a 30 degree lens. Both ureteral orifices appeared normal with no blood coming from either side. No stone was seen within the lumen of the bladder. No papillary or nodular lesions were seen. The right ureteral orifice was then cannulated with a 5 Vietnamese access catheter. Retrograde pyelogram was obtained by injecting Omnipaque through the access catheter under fluoroscopic guidance. The ureter appeared normal until the area of the ureteropelvic junction where the renal pelvis appeared dilated. No specific filling defect was identified. I then passed a Glidewire through the access catheter and removed the catheter. I passed the dual-lumen catheter over the wire and positioned a second wire. We chose one of the wires as a working wire and the other as a safety wire. I passed the ureteral access sheath over the working wire leaving the safety wire in place. The flexible ureteroscope was introduced through the access sheath. No stone was seen in the proximal ureter, so we inspected each of the calyces. In one of the midpole calyces, it appeared that the stone had been bumped back from its original location in the proximal ureter. The stone was grasped in a 0 tip stone basket and removed in its entirety. The patient tolerated this procedure well with no complications. We removed the access sheath and elected to place a 4.8 Vietnamese variable length stent over the safety wire. The stent was positioned with the proximal end curled in the renal pelvis and the distal end curled in the bladder. The positioning of the stent was confirmed both fluoroscopically and cystoscopically. We left the safety string in place and tucked the end of the string into the patient's vaginal cavity. The stent will be removed in our office in 2 to 3 days.
[2021-11-06 09:54] VITALS: BP 120/84; PULSE 67; RESP 10; TEMP 36.4; O2SAT 97
[2021-11-06] MEDS: fentaNYL 100 MCG/2 ML VIAL IVP (10:00)
[2021-11-06 10:10] VITALS: BP 119/68; PULSE 66; RESP 18; TEMP 36.6; O2SAT 97
[2021-11-06 10:27] VITALS: BP 114/55; PULSE 61; RESP 16; TEMP 36.2; O2SAT 98
[2021-11-06] MEDS: Phenazopyridine 200 MG TAB PO (10:39)
--- NOTE | 2021-11-06 10:41 | W.ANESPOSTOP ---
Postoperative Evaluation Date, Time and Location Date Performed: 11/06/21 Time Performed: 10:41 Patient Location: Day Surgery Unit Vital Signs Most Recent Imported Vital Signs: Most Recent Vital Signs Temp Pulse Resp BP Pulse Ox 36.6 C 66 18 119/68 97 11/06/21 10:10 11/06/21 10:10 11/06/21 10:10 11/06/21 10:10 11/06/21 10:10 Pain Score Most Recent Pain Score: Most Recent Pain Score Pain Level 5 11/06/21 10:10 Assessment Mental Status: Awake (Alert & Oriented to Patient Baseline) Airway and Respiratory Function: Patent airway with normal (patient baseline) respiratory exam Cardiovascular Function: Hemodynamically Stable Hydration Status: Adequately Hydrated Nausea & Vomiting: No Nausea or Vomiting Pain: Pain is tolerable per patient (Reporting more pressure than pain in lower abdomen. Being treated with pyridium by DSU RN. ) Peripheral Nerve Block: Patient did not receive a nerve block
[2021-11-09 20:43] LABS: Source: Right Ureter
== END 2021-11-06 11:05 | disposition home or self-care (01) ==
PROVIDERS: PCP Family Medicine; Visit Provider Urology
PROC: (CPT 52320; principal; 2021-11-06 08:45)
DX: N20.1 Calculus of ureter (principal); F17.210 Nicotine dependence, cigarettes, uncomplicated; F31.9 Bipolar disorder, unspecified
CPT/HCPCS: 52320; 52332; 74420; 82365; J0690; J1100; J1885; J2001; J2250; J2405; J2704; J3010; Q9967

== ENCOUNTER → 2021-11-09 11:07 | Outpatient (BNVA) | payer MEDICARE, SELFPAY | PROVIDERS: PCP Family Medicine; Referring Provider Family Medicine; Visit Provider Urology | DX: R69 Illness, unspecified (principal) ==

== ENCOUNTER 2021-11-09 11:35 | Day surgery (SDC) | payer MEDICARE, SELFPAY ==
[2021-11-09] VITALS (8 sets, daily range): BP systolic 126–151; BP diastolic 69–88; PULSE 76–90; RESP 11–20; TEMP 36–37.1; O2SAT 96–100; BMI 32.8
[2021-11-09 11:34] LABS: Source Nasal/Nares
[2021-11-09] MEDS: Lactated Ringers 1,000 ML 80 ML IV ×2 (11:57→12:07)
--- NOTE | 2021-11-09 12:04 | W.PM.HP.N ---
Date of service: 11/09/21 Time of Service: 12:04 Assessment and Plan Assessment and plan (1) Hydronephrosis, right: Status: Acute Assessment and plan: We will replace the stent. I will not leave a safety string on the stent, so we will need to do cystoscopy with stent removal in @ 1 week History of Present Illness History of Present Illness Chief Complaint: Right hydronephrosis Narrative: This is a 46-year-old woman who underwent right ureteroscopy and stone extraction on 11/06/2021.? I left a ureteral stent in place but the stent became dislodged and was removed less than 12 hours after the procedure. She comes in now with persistent right-sided flank and abdominal pain.? She has suprapubic discomfort.? She has persistent nausea but no fever or chills She has seen intermittent blood in the urine. When i did a point of care ultrasound in the office, she has persistent right hydronephrosis. 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) Bilateral sacroiliitis (Chronic 07/10/16) Bipolar disorder (Chronic) Chronic right shoulder pain (Chronic 04/03/18) Degeneration of cervical intervertebral disc (Chronic 09/18/12) Elsy iqbal for injections Depressive disorder (Chronic) Dyspareunia (Chronic 02/01/17) Gastroesophageal reflux disease (Chronic) Hypersomnia (Chronic 07/10/16) Low back pain (Chronic) spinal fusion L-S; nerve stimulator implanted Migraine (Chronic) Osteoarthritis of right knee (Chronic 01/06/15) Smoker (Chronic 07/11/17) vaping Urinary incontinence, mixed (Chronic 08/11/15) Vasomotor symptoms due to menopause (Acute) 09/2019. Laparoscopic bilateral salpingectomy for treatment of pelvic pain. VMS after surgery present but tolerable Chronic pain (Chronic) Pain clinic [facility]- [facility] & Cervical steroid injections Pain, joint, knee, right (Acute) 01/20- being seen at [facility] pain clinic- synvisc Kidney stone on right side (Acute) Medical History (Updated 11/09/21 @ 11:31 by Je Schuler MD) Cellulitis of leg right lower extremity cellulitis Cellulitis of leg Cervicalgia Cervicalgia Cholelithiasis without obstruction S/P cholecystectomy Chronic pelvic pain in female Pelvic CT. Normal pelvic and abdominal ultrasound. 10/2017 Depo-Lupron 11.25 mg IM Depression Multifactorial. Currently dealing with achieving custody of her granddaughter from her daughter. GERD (gastroesophageal reflux disease) Hand pain, right 07/2020- seeing OT History of tobacco use Idiopathic peripheral neuropathy Kidney stone Lower abdominal pain (10/22/17) Rx with DepoLupron 11.25mg x1 10/22/17. Lumbar radiculopathy, acute Menorrhagia (05/06/14) Obesity Status post bariatric surgery Os trigonum syndrome Posttraumatic stress disorder Right cervical radiculopathy (04/03/16) better since spinal fusion Spinal stenosis (05/12/15) Substance abuse Pt. states she has been clean for over 22 years Tarsal tunnel syndrome Tarsal tunnel syndrome S/P RIGHT 11/13/11 ([facility]) operated on right foot- stable Tobacco use Surgical History Cholecystectomy (~1997) Endometrial Biopsy 05/10/14;[facility] History of bilateral ligation of fallopian tubes History of bilateral salpingo-oophorectomy 09/09/2021 treat chronic pelvic pain. Patient had been pretreated for approximately 2 years with Depo. Lupron History of gynecological procedure History of spinal fusion >5 years Hysterectomy, Laproscopic (~10/2016) Ovaries conserved. Postop vaginal cuff hematoma managed expectantly. EP Ligation of fallopian tube sleeve gastrectomy (~2015) [facility] Spinal Fusion (~2006) nerve stimulator implanted Status post cholecystectomy Social History Smoking/Tobacco Use Status: Current every day Tobacco Type: e-cigarettes Quit status: not considering quitting Second Hand Exposure: Yes Smoking risk assessment performed?: Yes Alcohol Intake: current Alcohol Intake frequency: holidays/special occasions only Alcohol type: hard liquor Details: OCCASIONAL Drug use: Current Sobriety Details: Marijuana for pain mgmt. Last used 6 months ago Caregiver/Support person: No Household members: spouse, family and children Housing: house Number of Children: 3 number of grandchildren: 3 Pets and animals: Yes Pets and animals: cat(s) and dog(s) Sexually active: Yes Do you think of yourself as: straight/heterosexual Current gender identity: female Other: 09/01/20 Favio Rooney What is your relationship status?: How often do you talk on the phone with friends or family?: three or more times per week How often do you get together with friends or relatives?: twice per week Do you belong to any clubs or organized social groups?: no Panel score (0-1 are the most socially isolated patients): 2 What type of physical activity do you participate in: walking Cindy/Latter Day: None Special cindy needs: No Seatbelt use: always Helmet use: No Drive intox or ride w/intox motorcoach driver: No Do you feel safe at home: Yes (Spouse in room) Do you feel safe in your relationship?: Yes Female Reproductive History Menstrual Menopause type: surgical History History 3 Para Hx # Term Pregnancies 3 Multiple births Hx # Pregnancies Ectopic pregnancies AB induced Hx Number of Living Children AB spontaneous Meds Allergies and Home Medications Allergies Allergy/AdvReac Type Severity Reaction Status Date / Time adhesive tape Allergy Intermediate Raw Skin Verified 11/09/21 11:52 bee pollen [Bee Pollen] Allergy Intermediate Large Verified 11/09/21 11:52 local reaction codeine [Codeine] AdvReac Intermediate NAUSEA/VOMI Verified 11/09/21 11:52 TING Home Medications Medication Instructions Recorded Confirmed Type multivitamin-ferrous 1 tab PO DAILY 06/09/15 11/09/21 History fumarate-folic acid 18 mg-400 mcg tablet (Multi Complete with Iron) Vitamin D 3,000 units PO DAILY 10/15/17 11/09/21 History cholecalciferol (vitamin D3) 50 50 mcg PO DAILY #90 cap 06/03/20 11/09/21 Rx mcg (2,000 unit) capsule prochlorperazine 25 mg rectal 25 mg IL Q12H PRN #12 each 06/03/20 11/09/21 Rx suppository duloxetine 30 mg capsule,delayed 30 mg PO DAILY #90 cap 08/02/20 11/09/21 Rx release duloxetine 60 mg capsule,delayed 60 mg PO DAILY #90 tab 10/07/20 11/09/21 Rx release (Cymbalta) methylphenidate HCl 10 mg tablet 10 mg PO BID #56 tab MDD 20 mg 11/18/20 11/09/21 Rx methylphenidate HCl 20 mg tablet 20 mg PO BID #56 tab MDD 40 mg 11/18/20 11/09/21 Rx buspirone 5 mg tablet 30 mg PO BID 01/10/21 11/09/21 History clonidine HCl 0.1 mg tablet 0.1 mg PO BID 03/11/21 11/09/21 History erenumab-aooe 70 mg/mL 70 mg SUBCUT QMONTH 04/21/21 11/09/21 History subcutaneous auto-injector (Aimovig Autoinjector) pregabalin 100 mg capsule (Lyrica) 100 mg PO TID #270 tab-cap 05/29/21 11/09/21 Rx magnesium 200 mg tablet 200 mg PO DAILY 07/21/21 11/09/21 History albuterol sulfate 90 mcg/actuation 1 - 2 puff INHALATION Q4H PRN #1 08/15/21 11/09/21 Rx aerosol inhaler (ProAir HFA) inhaler benzonatate 100 mg capsule 100 mg PO TID PRN #30 cap 08/15/21 11/09/21 Rx oxycodone 5 mg tablet 5 mg PO DAILY PRN #21 tab MDD 10 mg 09/19/21 11/06/21 Rx omeprazole magnesium 20 mg 20 mg PO DAILY PRN #90 tab 09/20/21 11/09/21 Rx tablet,delayed release (Prilosec OTC) acetaminophen 500 mg tablet 1,000 mg PO Q6H PRN 11/06/21 11/09/21 History oxycodone 5 mg tablet 5 mg PO Q4H PRN #20 tab MDD 6 11/06/21 11/09/21 Rx sumatriptan succinate 3 mg/0.5 mL 3 mg SUBCUT PRN PRN 11/06/21 11/09/21 History subcutaneous pen injector Exam Const General: in distress Neck Neck: supple Resp Effort & Inspection: normal respiratory effort Auscultation: clear to auscultation bilaterally Cardio Rate: regular rate Rhythm: regular rhythm GI Palpation: soft and no guarding Other: right hydronephrosis and proximal hydroureter on point of care ultrasound Neuro General: patient alert and patient awake Results Labs Labs: Laboratory Results - last 24 hr 11/09/21 11:28 COVID-19 Source Nasal/Nares
[2021-11-09] MEDS: fentaNYL 100 MCG/2 ML VIAL (12:10)
[2021-11-09 12:15] LABS: COVID-19 PCR Negative (Negative)
[2021-11-09] MEDS: Midazolam 2 MG/2 ML VIAL (12:27)
--- NOTE | 2021-11-09 12:27 | W.PM.DSUDISC ---
Discharge Plan Disposition Patient Disposition: HOME Condition: Stable Discharge Details Reason For Visit: stent placement Attending Provider: Je Schuler Primary Care Provider: Curtis Burns Home Meds and New Rx's Prescriptions: No Action cholecalciferol (vitamin D3) 50 mcg (2,000 unit) capsule 50 mcg PO DAILY Qty: 90 3RF prochlorperazine 25 mg suppository 25 mg IA Q12H PRN (Reason: nausea and vomiting) Qty: 12 3RF Aimovig Autoinjector 70 mg/mL auto-injector 70 mg subcut QMONTH 0RF albuterol sulfate [ProAir HFA] 90 mcg/actuation HFA aerosol inhaler 1 - 2 puff Inhalation Q4H PRN Qty: 1 6RF benzonatate 100 mg capsule 100 mg PO TID PRN (Reason: cough) Qty: 30 0RF magnesium 200 mg tablet 200 mg PO DAILY 0RF oxycodone 5 mg tablet 5 mg PO DAILY MDD 10 mg PRN (Reason: pain) Qty: 21 0RF Label Comments: pt. reports she no longer has this medication Rx Instructions: one tab daily x 2 weeks, one tab every other day x 2 weeks, then d/c buspirone 5 mg tablet 30 mg PO BID 0RF oxybutynin chloride 5 mg tablet 5 mg PO BID-TID PRN (Reason: bladder spasms) Qty: 30 0RF oxycodone 5 mg tablet 5 mg PO Q4H MDD 6 PRN (Reason: pain) Qty: 30 0RF Multi Complete with Iron 1 EACH tablet 1 tab PO DAILY 0RF vitamin d 3,000 units PO DAILY 0RF duloxetine 30 mg capsule,delayed release(DR/EC) 30 mg PO DAILY Qty: 90 4RF Rx Instructions: Take with 60 mg cap duloxetine [Cymbalta] 60 mg capsule,delayed release(DR/EC) 60 mg PO DAILY Qty: 90 4RF methylphenidate HCl 20 mg tablet 20 mg PO BID MDD 40 mg Qty: 56 0RF Rx Instructions: Take with 10 mg tab methylphenidate HCl 10 mg tablet 10 mg PO BID MDD 20 mg Qty: 56 0RF Rx Instructions: Take with 20 mg for total dose of 30 mg pregabalin [Lyrica] 100 mg capsule 100 mg PO TID Qty: 270 0RF omeprazole magnesium [Prilosec OTC] 20 mg tablet,delayed release (DR/EC) 20 mg PO DAILY PRN (Reason: heartburn) Qty: 90 3RF sumatriptan succinate 3 mg/0.5 mL Pen Injector 3 mg SUBCUT PRN PRN0RF acetaminophen [Tylenol Ex Str Rapid Release] 500 mg Tablet 1,000 mg PO Q6H PRN0RF clonidine HCl 0.1 mg tablet 0.1 mg PO BID 0RF Label Comments: TAKE 1 TABLET BY MOUTH TWICE DAILY Discharge Instructions Additional Instructions: no need to strain urine followup @ 1 week for cysto with stent removal (can either be in office or in OR) ptrescriptions for oxycodone and oxybutynin sent to pharmacy Activity:: Activity as Tolerated Shower/Bathe:: 24 hours Diet:: As Tolerated Discharge Orders Discharge Orders: Discharge Order (Routine); Ordered 11/09/21 Ordered By: Je Schuler DS: Diagnosis Discharge Diagnosis (1) Hydronephrosis, right: Status: Acute
--- NOTE | 2021-11-09 12:28 | ANES.PREOP_ITS ---
General Info Date of Service Date Performed: 11/09/21 Height: 5 ft 8 in Weight: 97.976 kg Body Mass Index (BMI): 32.8 Surgical Procedure: Operation Date: 11/09/21 14:25 Proposed Procedure Side Surgeon p Cystoscopy with Stent Insertion Right Je Schuler MD Meds Allergies and Home Medications Allergies Allergy/AdvReac Type Severity Reaction Status Date / Time adhesive tape Allergy Intermediate Raw Skin Verified 11/09/21 11:52 bee pollen [Bee Pollen] Allergy Intermediate Large Verified 11/09/21 11:52 local reaction codeine [Codeine] AdvReac Intermediate NAUSEA/VOMI Verified 11/09/21 11:52 TING Home Medication Medication Instructions Recorded multivitamin-ferrous 1 tab PO DAILY 06/09/15 fumarate-folic acid 18 mg-400 mcg tablet (Multi Complete with Iron) Vitamin D 3,000 units PO DAILY 10/15/17 cholecalciferol (vitamin D3) 50 50 mcg PO DAILY #90 cap 06/03/20 mcg (2,000 unit) capsule prochlorperazine 25 mg rectal 25 mg KS Q12H PRN #12 each 06/03/20 suppository duloxetine 30 mg capsule,delayed 30 mg PO DAILY #90 cap 08/02/20 release duloxetine 60 mg capsule,delayed 60 mg PO DAILY #90 tab 10/07/20 release (Cymbalta) methylphenidate HCl 10 mg tablet 10 mg PO BID #56 tab MDD 20 mg 11/18/20 methylphenidate HCl 20 mg tablet 20 mg PO BID #56 tab MDD 40 mg 11/18/20 buspirone 5 mg tablet 30 mg PO BID 01/10/21 clonidine HCl 0.1 mg tablet 0.1 mg PO BID 03/11/21 erenumab-aooe 70 mg/mL 70 mg SUBCUT QMONTH 04/21/21 subcutaneous auto-injector (Aimovig Autoinjector) pregabalin 100 mg capsule (Lyrica) 100 mg PO TID #270 tab-cap 05/29/21 magnesium 200 mg tablet 200 mg PO DAILY 07/21/21 albuterol sulfate 90 mcg/actuation 1 - 2 puff INHALATION Q4H PRN #1 08/15/21 aerosol inhaler (ProAir HFA) inhaler benzonatate 100 mg capsule 100 mg PO TID PRN #30 cap 08/15/21 oxycodone 5 mg tablet 5 mg PO DAILY PRN #21 tab MDD 10 mg 09/19/21 omeprazole magnesium 20 mg 20 mg PO DAILY PRN #90 tab 09/20/21 tablet,delayed release (Prilosec OTC) acetaminophen 500 mg tablet 1,000 mg PO Q6H PRN 11/06/21 sumatriptan succinate 3 mg/0.5 mL 3 mg SUBCUT PRN PRN 11/06/21 subcutaneous pen injector oxybutynin chloride 5 mg tablet 5 mg PO BID-TID PRN #30 tab 11/09/21 oxycodone 5 mg tablet 5 mg PO Q4H PRN #30 tab MDD 6 11/09/21 Current Visit Medications: Current Medications Generic Name Dose Route Start Last Admin Trade Name Freq PRN Reason Stop Dose Admin Ringer's Solution 1,000 mls @ 80 mls/hr 11/09/21 06:00 11/09/21 12:07 IV 11/30/21 23:59 80 mls/hr INFUSION ZINA Administration Cefazolin Sodium/Dextrose 2 gm in 50 mls @ 100 mls/hr 11/09/21 06:00 Ancef Duplex IVPB 11/09/21 23:59 PREOP ZINA IV Miscellaneous Supplies 1 each 11/09/21 06:00 Iv Access IV 11/30/21 23:59 DIRECTED ZINA Sodium Chloride 0 ml 11/09/21 06:00 Normal Saline Flush 10 Ml Syr IV 11/30/21 23:59 PRN PRN Sodium Chloride 0 ml 11/09/21 06:00 Normal Saline 10 Ml Vial IJ 11/30/21 23:59 DIRECTED PRN Sterile Water 0 ml 11/09/21 06:00 Water,Injection,Sterile 10 Ml Vial IJ 11/30/21 23:59 DIRECTED PRN PFSH Active Problems Active Problems: Problem Status Onset Code Hydronephrosis, right N13.30 Anxiety F41.9 Attention deficit hyperactivity disorder (ADHD), predominantly inattentive type 07/11/17 F90.0 Bilateral sacroiliitis 07/10/16 M46.1 Bipolar disorder F31.9 Chronic right shoulder pain 04/03/18 M25.511, G89.29 Degeneration of cervical intervertebral disc 09/18/12 M50.30 Depressive disorder F32.9 Dyspareunia 02/01/17 Gastroesophageal reflux disease K21.9 Hypersomnia 07/10/16 G47.10 Low back pain M54.5 Migraine G43.909 Osteoarthritis of right knee 01/06/15 M17.11 Smoker 07/11/17 F17.200 Urinary incontinence, mixed 08/11/15 N39.46 Vasomotor symptoms due to menopause N95.1 Chronic pain G89.29 Pain, joint, knee, right M25.561 Kidney stone on right side N20.0 Medical History Medical History (Updated 11/09/21 @ 11:31 by Je Schuler MD) Cellulitis of leg right lower extremity cellulitis Cellulitis of leg Cervicalgia Cervicalgia Cholelithiasis without obstruction S/P cholecystectomy Chronic pelvic pain in female Pelvic CT. Normal pelvic and abdominal ultrasound. 10/2017 Depo-Lupron 11.25 mg IM Depression Multifactorial. Currently dealing with achieving custody of her granddaughter from her daughter. GERD (gastroesophageal reflux disease) Hand pain, right 07/2020- seeing OT History of tobacco use Idiopathic peripheral neuropathy Kidney stone Lower abdominal pain (10/22/17) Rx with DepoLupron 11.25mg x1 10/22/17. Lumbar radiculopathy, acute Menorrhagia (05/06/14) Obesity Status post bariatric surgery Os trigonum syndrome Posttraumatic stress disorder Right cervical radiculopathy (04/03/16) better since spinal fusion Spinal stenosis (05/12/15) Substance abuse Pt. states she has been clean for over 22 years Tarsal tunnel syndrome Tarsal tunnel syndrome S/P RIGHT 11/13/11 (SEE SCANNED) operated on right foot- stable Tobacco use Medical History Comments:: dentures removed and at home metal in neck and spine from a fusion N/V after Anestheia Vaped at 2300 11/05/21 Please do BP on RIGHT ARM Surgical History Surgical History Cholecystectomy (~1997) Endometrial Biopsy 05/10/14;[facility] History of bilateral ligation of fallopian tubes History of bilateral salpingo-oophorectomy 09/09/2021 treat chronic pelvic pain. Patient had been pretreated for approximately 2 years with Depo. Lupron History of gynecological procedure History of spinal fusion >5 years Hysterectomy, Laproscopic (~10/2016) Ovaries conserved. Postop vaginal cuff hematoma managed expectantly. EP Ligation of fallopian tube sleeve gastrectomy (~2015) [facility] Spinal Fusion (~2006) nerve stimulator implanted Status post cholecystectomy Tobacco Smoking/Tobacco Use Status: Current every day Tobacco Type: e-cigarettes Passive smoking exposure: Yes Second hand exposure: Yes Alcohol Alcohol Intake: current Alcohol intake frequency: holidays/special occasions only Alcohol type: hard liquor Details: OCCASIONAL Substance Use Substance use: Current Sobriety Details: Marijuana for pain mgmt. Last used 6 months ago Prental History History 3 Para Hx # Term Pregnancies 3 Multiple births Hx # Pregnancies Ectopic pregnancies AB induced Hx Number of Living Children AB spontaneous Vital Signs and Lab Results Vital Signs Most Recent Vital Signs in EMR: Most Recent Vital Signs Temp Pulse Resp BP Pulse Ox 36.0 C L 90 16 144/88 H 96 11/09/21 11:58 11/09/21 11:58 11/09/21 11:58 11/09/21 11:58 11/09/21 11:58 Lab Results Blood Type / Crossmatch: No Data to Display Complete Blood Count: White Blood Count 9.55 10^3/uL (4.4-10.8) 10/31/21 16:24 10/31/21 Red Blood Count 4.63 10^6/uL (3.93-5.22) 10/31/21 16:24 10/31/21 Hemoglobin 14.0 g/dL (11.2-15.7) 10/31/21 16:24 10/31/21 Hematocrit 41.7 % (36.0-46.0) 10/31/21 16:24 10/31/21 Platelet Count 285 10^3/uL (130-400) 10/31/21 16:24 10/31/21 Complete Metabolic Panel: Sodium Level 136 mmol/L (136-145) 10/31/21 16:24 10/31/21 Potassium Level 4.1 mmol/L (3.5-5.1) 10/31/21 16:24 10/31/21 Chloride Level 101 mmol/L (98-107) 10/31/21 16:24 10/31/21 Carbon Dioxide Level 26.5 mmol/L (21.0-32.0) 10/31/21 16:24 10/31/21 Blood Urea Nitrogen 12 mg/dL (7-18) 10/31/21 16:24 10/31/21 Creatinine 0.8 mg/dL (0.55-1.02) 10/31/21 16:24 10/31/21 Estimated GFR/1.73 m2 >= 60.00 (mL/min/1.73m2) 10/31/21 16:24 10/31/21 Calcium Level 9.0 mg/dL (8.5-10.1) 10/31/21 16:24 10/31/21 Albumin 3.8 g/dL (3.4-5.0) 10/31/21 16:24 10/31/21 Glucose Level 101 mg/dL (74-106) 10/31/21 16:24 10/31/21 Liver Function Panel: Alanine Aminotransferase (ALT/SGPT) 24 U/L (14-59) 10/31/21 16:24 10/31/21 Aspartate Amino Transf (AST/SGOT) 18 U/L (15-37) 10/31/21 16:24 10/31/21 Coagulation Panel: No Data to Display Cardiac Panel: No Data to Display Arterial Blood Gas: No Data to Display Venous Blood Gas: No Data to Display Pancreas Panel: No Data to Display Thyroid Panel: No Data to Display Infectious Disease: Coronavirus (COVID-19)(PCR) Negative (Negative) 11/09/21 11:28 11/09/21 Coronavirus 2019 Source Nasal/Nares 11/09/21 11:28 11/09/21 Blood Cultures: No Data to Display Toxicology Panel: No Data to Display Panel: No Data to Display Anesthesia Assessment and Plan Anesthesia History Personal History: PONV Family History: No Family History of Anesthesia Complications Exercise Tolerance Exercise Tolerance: Metabolic Equivalents>4 Cardiac & Pulmonary Exam Cardiac Exam: Normal S1/S2 Heart Sounds Pulmonary Exam: Clear Bilateral Breath Sounds Implantable Cardiac Device Does patient have a Pacemaker or an ICD?: No Airway Exam Known Difficult Airway: No Mallampati Class: 2 Mouth Opening: Normal (> 3cm) Thyromental Distance: Greater than 3 cm Neck Range of Motion: Full ROM Neck Circumference: Normal Teeth Condition: Edentulous ASA Classification ASA Score: ASA 2 Emergency Case?: Yes NPO Status NPO Status: NPO Clear Liquids>2 hours (Small bite of toast at 0900) Status Status: Not Per Patient Anesthesia Plan Resuscitation Status: Full Code Anesthesia Technique: General Anesthesia Airway Planned: Endotracheal Tube Monitors Used: Standard Monitors
[2021-11-09] MEDS: Lidocaine 2% Jelly 6 ML SYR (14:50)
[2021-11-09] MEDS: Omnipaque 300 MG/ML 50 ML BTL (14:50)
--- NOTE | 2021-11-09 14:59 | ROE_ITS ---
Date of service: 11/09/21 Time of Service: 14:59 Operative Note Operative Note DATE OF PROCEDURE: 11/09/21 PRE-OP DIAGNOSIS: right hydronephrosis PROCEDURE: Cystoscopy, right retrograde pyelogram, insert right ureteral stent SURGEON: Je Schuler ANESTHESIA TYPE: General LMA/ETT Refer to Anesthesia Record ESTIMATED BLOOD LOSS: 3 PATHOLOGY: other (Ureteral urine sample for culture and sensitivity) COMPLICATIONS: None Patient was transported to: PACU Patient's condition: stable Implants: 6 Sammarinese by 22 to 30 cm right ureteral stent Indications: Is a 46-year-old woman who previously presented with a right proximal ureteral stone. She was treated earlier this week with cystoscopy, retrograde pyelogram, right flexible ureteroscopy with stone extraction. I left a ureteral stent with the safety string in the postoperative time. The became dislodged in the first 24 hours. Since then, the patient has had persistent pain and nausea. She has not had any fevers or chills. I saw her in the office today and did a [id number] ultrasound. Right hydronephrosis and hydroureter was identified. She presents for replacement of a ureteral stent Findings: The patient was brought to the operating room on 11/09/2021. She was given a preoperative dose of antibiotics. After successful induction of general anesthesia, she was placed in the dorsal lithotomy position. Her genitalia was prepped and draped. 2% Xylocaine jelly was instilled into the urethra to act as a local anesthetic. A 22 Sammarinese rigid cystoscope was passed through the urethra into the bladder. The bladder was inspected with a 30 degree lens. The left ureteral orifice appeared normal. The right orifice appeared edematous from the recent instrumentation. I initially had difficulty inserting a ureteral access catheter into the right ureteral orifice. I was able to pass a Glidewire and advanced the access catheter over the wire. Once the wire was removed, we obtained a hydronephrotic drip from the access catheter. Some of the urine was captured and is sent for culture and sensitivity. I then injected Omnipaque through the access catheter under fluoroscopic guidance. The entire ureter down to the submucosal tunnel was dilated and tortuous. Replaced the guidewire and removed the access catheter. I passed a 6 Sammarinese variable length stent over the guidewire. The proximal end of the stent was curled in the renal pelvis and the distal and was curled within the bladder. The positioning of the stent was confirmed both fluoroscopically and cystoscopically. The patient tolerated the procedure well. There were no complications. She will require cystoscopy and stent removal in about 1 to 2 weeks.
--- NOTE | 2021-11-09 15:01 | DI.RAD_ITS ---
Exam(s) XR RETROGRADE IN OR EXAM: XR RETROGRADE IN OR CLINICAL HISTORY: stent placement TECHNIQUE: 2D and realtime digital imaging was performed. COMPARISON: No exams were available for comparison FINDINGS: Retrograde ureterography was performed by Dr. Schuler, please see the procedure note. Hard copies show stent placement in right ureter and collecting system. IMPRESSION: RADIATION DOSE DELIVERED: chinedu Pierce=3.16 mGy
[2021-11-09] MEDS: oxyCODONE 5 MG TAB PO (15:33)
[2021-11-09] MEDS: Phenazopyridine 200 MG TAB PO (15:33)
--- NOTE | 2021-11-09 16:22 | W.ANESPOSTOP ---
Postoperative Evaluation Date, Time and Location Date Performed: 11/09/21 Time Performed: 16:22 Patient Location: Day Surgery Unit Vital Signs Most Recent Imported Vital Signs: Most Recent Vital Signs Temp Pulse Resp BP Pulse Ox 36.7 C 85 18 149/69 H 96 11/09/21 15:58 11/09/21 15:58 11/09/21 15:58 11/09/21 15:58 11/09/21 15:58 Pain Score Most Recent Pain Score: Most Recent Pain Score Pain Level 5 11/09/21 15:58 Assessment Mental Status: Awake (Alert & Oriented to Patient Baseline) Airway and Respiratory Function: Patent airway with normal (patient baseline) respiratory exam Cardiovascular Function: Hemodynamically Stable Hydration Status: Adequately Hydrated Nausea & Vomiting: No Nausea or Vomiting Pain: Pain is tolerable per patient Peripheral Nerve Block: Patient did not receive a nerve block
== END 2021-11-09 16:52 | disposition home or self-care (01) ==
PROVIDERS: PCP Family Medicine; Visit Provider Urology
PROC: 0T9680Z Drainage of Right Ureter with Drainage Device, Via Natural or Artificial Opening Endoscopic (ICD-10-PCS; CPT 52332; principal; 2021-11-09 14:15)
DX: N13.30 Unspecified hydronephrosis (principal); F17.210 Nicotine dependence, cigarettes, uncomplicated; G21.9 Secondary parkinsonism, unspecified; G89.29 Other chronic pain; R10.2 Pelvic and perineal pain; F32.9 Major depressive disorder, single episode, unspecified
CPT/HCPCS: 52332; 81003; 87077; 87635; 99213; 74420; 87070; 87186; 87205; J2250; J3010; Q9967

== ENCOUNTER 2021-11-09 18:21 | Outpatient (REF) | payer MEDICARE, SELFPAY | END 2021-11-09 18:22 | disposition home or self-care (01) | LOC: LBN 18:21 | PROVIDERS: PCP Family Medicine; Visit Provider Urology | DX: N20.0 Calculus of kidney (principal) | CPT/HCPCS: 87086 ==

== ENCOUNTER → 2021-11-15 10:29 | Outpatient (BNVA) | payer MEDICARE, SELFPAY | PROVIDERS: PCP Family Medicine; Referring Provider Family Medicine; Visit Provider Nurse Practitioner Gerontology | DX: N13.30 Unspecified hydronephrosis (principal); N20.0 Calculus of kidney; N39.0 Urinary tract infection, site not specified; R82.998 Other abnormal findings in urine | CPT/HCPCS: 81003; 99214 ==

== ENCOUNTER 2021-11-15 17:43 | Outpatient (REF) | payer MEDICARE, SELFPAY | END 2021-11-15 17:44 | disposition home or self-care (01) | LOC: LBN 17:43 | PROVIDERS: PCP Family Medicine; Visit Provider Nurse Practitioner Gerontology | DX: N13.30 Unspecified hydronephrosis (principal); N39.0 Urinary tract infection, site not specified | CPT/HCPCS: 87086 ==

== ENCOUNTER → 2021-11-23 10:00 | Outpatient (BNVA) | payer MEDICARE, SELFPAY | PROVIDERS: PCP Family Medicine; Referring Provider Family Medicine; Visit Provider Urology | DX: N20.0 Calculus of kidney (principal); N13.30 Unspecified hydronephrosis | CPT/HCPCS: 52000 ==

== ENCOUNTER 2021-12-08 01:09 | Outpatient (CLI) | payer MEDICARE, SELFPAY ==
--- NOTE | 2021-12-08 06:56 | DI.US_ITS ---
Exam(s) US RENAL EXAM: US RENAL CLINICAL HISTORY: r/o hydronephrosis after ureteroscopy,calculus proximal rt ureter,n20.1 TECHNIQUE: Ultrasound of both kidneys performed using standard protocol. COMPARISON: Prior CT scan 10/31/[address] study revealed a 4-5 calculus in the upp er right ureter with dilatation right collecting system above this level. There are no other calculi seen in the kidneys on that recent CT scan. FINDINGS: RIGHT KIDNEY: Measures 9.3 cm in length. No cysts evident. Normal cortical thickness and corticomedullary different iation .No solid masses No intrarenal calculi nor hydronephrosis.In addition, the right ureterovesical jet at the level the b ladder was identified. This implies that obstruction which was previously present has most probably resolved. LEFT KIDNEY: Measures 10.5 cm in length. No cysts evident. Normal cortical thickness and corticomedullary differe ntiaion. No solids masses. No intrarenal calculi nor hydonephrosis. URINARY BLADDER: Prevoid volume is 106 cc Postvoid volume is 0 cc No evidence of bladder mass nor diverticuli. Ureterovesical jets: Both visualized. IMPRESSION: 1. No significant ultrasound findings in the kidneys. 2. Previously present right-sided hydronephrosis has resolved. In addition, there is right ureterov esical junction jet was visualized at the level the bladder. This most probably implies that the pre viously present calculus has passed. DATA REPOSITORY:
== END 2021-12-08 01:29 ==
LOC: DI 01:09
PROVIDERS: PCP Family Medicine; Visit Provider Urology
DX: N20.1 Calculus of ureter (principal)
CPT/HCPCS: 76770

== ENCOUNTER → 2021-12-11 14:57 | Outpatient (BNVA) | payer MEDICARE, SELFPAY | PROVIDERS: PCP Family Medicine; Referring Provider Family Medicine; Visit Provider Nurse Practitioner Gerontology | DX: N20.0 Calculus of kidney (principal) | CPT/HCPCS: 99214 ==

== ENCOUNTER → 2021-12-14 13:00 | Outpatient (BNVA) | payer MEDICARE, SELFPAY | PROVIDERS: PCP Family Medicine; Referring Provider Family Medicine; Visit Provider Urology | DX: R30.0 Dysuria (principal); R10.31 Right lower quadrant pain | CPT/HCPCS: 81003; 99214 ==

== ENCOUNTER → 2021-12-21 01:51 | Outpatient (CLI) | payer MEDICARE, SELFPAY ==
--- NOTE | 2021-12-21 | DI.MAMMO_ITS ---
Exam(s) MAMMO SCREENING EXAM: MAMMO SCREENING CLINICAL HISTORY: SCREENING,Z12.39. TECHNIQUE: Bilateral full field digital CC and MLO mammographic images were obtained with 3D tomosyn thesis and utilizing computer aided detection (CAD). COMPARISON: Prior mammograms were reviewed, the most recent being June 2020. FINDINGS: There has been no significant change in the appearance and distribution of the fibroglandular tissue There are no new spiculated masses nor malignant appearing microcalcification groups. There is no significant architectural distortion nor skin thickening-retraction. IMPRESSION: No radiographic evidence of malignancy. BI-RADS Category 1 - Negative Breast Density - Category B - Scattered areas of fibroglandular density Breast density Category C or D implies that the patient has dense breast tissue. Dense breast tissue can make it harder to find cancer on a mammogram. Dense breast tissue is also associated with an incr eased risk of breast cancer. This information about the result of the mammogram report was provided to the patient to raise their awareness. Use this report when you speak with the patient about their risks for breast cancer, which includes their family history. At that time, you may recommend additional screening tests (Ultrasoun d or MRI) as these tests may add significant information. A negative radiographic report should not delay biopsy if a dominant or clinically suspicious mass is present. Up to ten percent of cancers are not identified on mammography. A negative report may reinforce clinical impression. Adenosis and dense breasts may obscure an underlying neoplasm. False positive reports average 6 to 10%. Patient will receive a letter notifying them of these results.
== END ==
PROVIDERS: PCP Family Medicine; Visit Provider Family Medicine
DX: Z12.31 Encounter for screening mammogram for malignant neoplasm of breast (principal)
CPT/HCPCS: 77063; 77067

== ENCOUNTER 2022-01-03 12:52 | Emergency (ER) | payer MEDICARE, SELFPAY ==
[2022-01-03 12:57] VITALS: BP 144/71; PULSE 77; RESP 16; TEMP 36.2; O2SAT 99
--- NOTE | 2022-01-03 13:14 | ED.GENADUL_ITS ---
Discharge Plan Disposition Patient Disposition: HOME Condition: Stable Discharge Details Clinical Impression: Migraine Primary Care Provider: Curtis Burns ED Provider: Marques Escalona Home Meds and New Rx's Prescriptions: Continued cholecalciferol (vitamin D3) 50 mcg (2,000 unit) capsule 50 mcg PO DAILY Qty: 90 3RF prochlorperazine 25 mg suppository 25 mg ID Q12H PRN (Reason: nausea and vomiting) Qty: 12 3RF Aimovig Autoinjector 70 mg/mL auto-injector 140 mg subcut QMONTH 0RF albuterol sulfate [ProAir HFA] 90 mcg/actuation HFA aerosol inhaler 1 - 2 puff Inhalation Q4H PRN Qty: 1 6RF benzonatate 100 mg capsule 100 mg PO TID PRN (Reason: cough) Qty: 30 0RF buspirone 5 mg tablet 30 mg PO BID 0RF Multi Complete with Iron 1 EACH tablet 1 tab PO DAILY 0RF vitamin d 3,000 units PO DAILY 0RF duloxetine 30 mg capsule,delayed release(DR/EC) 30 mg PO DAILY Qty: 90 4RF Rx Instructions: Take with 60 mg cap duloxetine [Cymbalta] 60 mg capsule,delayed release(DR/EC) 60 mg PO DAILY Qty: 90 4RF methylphenidate HCl 20 mg tablet 20 mg PO BID MDD 40 mg Qty: 56 0RF Rx Instructions: Take with 10 mg tab methylphenidate HCl 10 mg tablet 10 mg PO BID MDD 20 mg Qty: 56 0RF Rx Instructions: Take with 20 mg for total dose of 30 mg omeprazole magnesium [Prilosec OTC] 20 mg tablet,delayed release (DR/EC) 20 mg PO DAILY PRN (Reason: heartburn) Qty: 90 3RF pregabalin [Lyrica] 100 mg capsule 100 mg PO TID Qty: 42 0RF acetaminophen 500 mg Tablet 1,000 mg PO Q6H PRN0RF clonidine HCl 0.1 mg tablet 0.1 mg PO BID 0RF Label Comments: TAKE 1 TABLET BY MOUTH TWICE DAILY Discharge Instructions Instructions: Migraine Headache (ED) Additional Instructions: You were treated for a migraine with improvement in your symptoms follow up with your neurologist as soon as possible if you feel more ill, have severe worsening pain or fevers return to the emergency department Medical Decision Making 46 yo female with hx of migraines, bipolar, gerd, who comes in with 4 days of he adache on the left side of her head and blurred vision similar to prior migraines. SHe states she was getting weekly imitrex shots but this was stopped. She states the pain started slowly 4 days ago, and was not thunderclap on description, did not start suddenly or severely. She denies falls, fevers, chills, neck pain/stiffness, chest pain or back pain. She arrives stable, is stating lights make her pain worse. She has normal appearing eyes, perrl, eomi, no afferent pupillary defect. CN II-XII intact, normal motor and sensation of extremities and clear speech. Suspect this is a migraine based on her history. Not thunderclap so doubt subarachnoid or other hemorrhage, and no findings to suggest purchasing specialist infection. Will treat with toradol, compazine and dexamethasone and reassess. pt's symptoms resolved with medication and is requesting d/c. Given her history seems most likely migraine, advised to f/u with her neurologist and return precautions given Differential Diagnosis Differential Diagnosis: migraine, tension headache Medical Records Medical records reviewed: Yes I reviewed the patient's medical records. HPI General Mode of arrival: ambulatory . Date/Time Provider Initiated Documentation: 01/03/22 12:53 . Limitations to Documentation: no limitations . Information obtained by: patient . History of Present Illness 46 year old F presents to the emergency department with the chief complaint of left sided head pain, described as moderate and severe, Patient started experiencing this day(s) (4) and it has been constant. improves with No relieving factors improve symptom(s), No exacerbating factors reported . Patient notes denies fever/chills. Patient did receive the following treatments prior to arrival, none (no meds today) Related Data Home Medications Medication Instructions Recorded Confirmed multivitamin-ferrous 1 tab PO DAILY 06/09/15 01/03/22 fumarate-folic acid 18 mg-400 mcg tablet (Multi Complete with Iron) Vitamin D 3,000 units PO DAILY 10/15/17 12/14/21 cholecalciferol (vitamin D3) 50 50 mcg PO DAILY #90 cap 06/03/20 01/03/22 mcg (2,000 unit) capsule prochlorperazine 25 mg rectal 25 mg ID Q12H PRN #12 each 06/03/20 01/03/22 suppository duloxetine 30 mg capsule,delayed 30 mg PO DAILY #90 cap 08/02/20 01/03/22 release duloxetine 60 mg capsule,delayed 60 mg PO DAILY #90 tab 10/07/20 01/03/22 release (Cymbalta) methylphenidate HCl 10 mg tablet 10 mg PO BID #56 tab MDD 20 mg 11/18/20 01/03/22 methylphenidate HCl 20 mg tablet 20 mg PO BID #56 tab MDD 40 mg 11/18/20 01/03/22 buspirone 5 mg tablet 30 mg PO BID 01/10/21 01/03/22 clonidine HCl 0.1 mg tablet 0.1 mg PO BID 03/11/21 01/03/22 erenumab-aooe 70 mg/mL 140 mg SUBCUT QMONTH 04/21/21 12/14/21 subcutaneous auto-injector (Aimovig Autoinjector) albuterol sulfate 90 mcg/actuation 1 - 2 puff INHALATION Q4H PRN #1 08/15/21 01/03/22 aerosol inhaler (ProAir HFA) inhaler benzonatate 100 mg capsule 100 mg PO TID PRN #30 cap 08/15/21 01/03/22 omeprazole magnesium 20 mg 20 mg PO DAILY PRN #90 tab 09/20/21 01/03/22 tablet,delayed release (Prilosec OTC) acetaminophen 500 mg tablet 1,000 mg PO Q6H PRN 11/06/21 01/03/22 pregabalin 100 mg capsule (Lyrica) 100 mg PO TID #42 tab-cap 12/05/21 01/03/22 Previous Rx's Medication Instructions Recorded cholecalciferol (vitamin D3) 50 50 mcg PO DAILY #90 cap 06/03/20 mcg (2,000 unit) capsule prochlorperazine 25 mg rectal 25 mg ID Q12H PRN #12 each 06/03/20 suppository duloxetine 30 mg capsule,delayed 30 mg PO DAILY #90 cap 08/02/20 release duloxetine 60 mg capsule,delayed 60 mg PO DAILY #90 tab 10/07/20 release (Cymbalta) methylphenidate HCl 10 mg tablet 10 mg PO BID #56 tab MDD 20 mg 11/18/20 methylphenidate HCl 20 mg tablet 20 mg PO BID #56 tab MDD 40 mg 11/18/20 albuterol sulfate 90 mcg/actuation 1 - 2 puff INHALATION Q4H PRN #1 08/15/21 aerosol inhaler (ProAir HFA) inhaler benzonatate 100 mg capsule 100 mg PO TID PRN #30 cap 08/15/21 omeprazole magnesium 20 mg 20 mg PO DAILY PRN #90 tab 09/20/21 tablet,delayed release (Prilosec OTC) pregabalin 100 mg capsule (Lyrica) 100 mg PO TID #42 tab-cap 12/05/21 Allergies Allergy/AdvReac Type Severity Reaction Status Date / Time adhesive tape Allergy Intermediate Raw Skin Verified 01/03/22 13:02 bee pollen [Bee Pollen] Allergy Intermediate Large Verified 01/03/22 13:02 local reaction codeine [Codeine] AdvReac Intermediate NAUSEA/VOMI Verified 01/03/22 13:02 TING General Stated Complaint: Headache CUAUHTEMOC: 3 Review of Systems All systems reviewed & are unremarkable except as noted in HPI and below Constitutional Constitutional: Denies chills, Denies fever(s) and Denies weakness ENT Ears, Nose, Mouth, and Throat: Denies change in voice Cardiovascular Cardiovascular: Denies chest pain and Denies dyspnea Respiratory Respiratory: Denies cough and Denies dyspnea Gastrointestinal Gastrointestinal: Denies abdominal pain, Denies nausea and Denies vomiting Genitourinary Genitourinary: Denies dysuria Musculoskeletal Musculoskeletal: Denies joint swelling Integumentary/Breasts Skin/Breast: Denies rash Neurologic Neurologic: Denies weakness PFSH All Active Problems (Updated 01/03/22 @ 14:19 by Marques Escalona MD) Flank pain (Acute) Anxiety (Chronic) Attention deficit hyperactivity disorder (ADHD), 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) Bilateral sacroiliitis (Chronic 07/10/16) Bipolar disorder (Chronic) Chronic right shoulder pain (Chronic 04/03/18) Degeneration of cervical intervertebral disc (Chronic 09/18/12) Elsy iqbal for injections Depressive disorder (Chronic) Dyspareunia (Chronic 02/01/17) Gastroesophageal reflux disease (Chronic) Hypersomnia (Chronic 07/10/16) Low back pain (Chronic) spinal fusion L-S; nerve stimulator implanted Migraine (Chronic) Osteoarthritis of right knee (Chronic 01/06/15) Smoker (Chronic 07/11/17) vaping Urinary incontinence, mixed (Chronic 08/11/15) Vasomotor symptoms due to menopause (Acute) 09/2019. Laparoscopic bilateral salpingectomy for treatment of pelvic pain. VMS after surgery present but tolerable Chronic pain (Chronic) Pain clinic [facility]- SI & Cervical steroid injections Pain, joint, knee, right (Acute) 01/20- being seen at [facility] pain clinic- [facility] Medical History (Updated 01/03/22 @ 14:19 by Marques Escalona MD) Cellulitis of leg right lower extremity cellulitis Cellulitis of leg Cervicalgia Cervicalgia Cholelithiasis without obstruction S/P cholecystectomy Chronic pelvic pain in female Pelvic CT. Normal pelvic and abdominal ultrasound. 10/2017 Depo-Lupron 11.25 mg IM Depression Multifactorial. Currently dealing with achieving custody of her granddaughter from her daughter. GERD (gastroesophageal reflux disease) Hand pain, right 07/2020- seeing OT History of tobacco use Idiopathic peripheral neuropathy Kidney stone Lower abdominal pain (10/22/17) Rx with DepoLupron 11.25mg x1 10/22/17. Lumbar radiculopathy, acute Menorrhagia (05/06/14) Obesity Status post bariatric surgery Os trigonum syndrome Posttraumatic stress disorder Right cervical radiculopathy (04/03/16) better since spinal fusion Spinal stenosis (05/12/15) Substance abuse Pt. states she has been clean for over 22 years Tarsal tunnel syndrome Tarsal tunnel syndrome S/P RIGHT 11/13/11 ([facility]) operated on right foot- stable Tobacco use Surgical History Cholecystectomy (~1997) [facility] History of bilateral ligation of fallopian tubes History of bilateral salpingo-oophorectomy 09/09/2021 treat chronic pelvic pain. Patient had been pretreated for approximately 2 years with Depo. Lupron History of gynecological procedure History of spinal fusion >5 years Hysterectomy, Laproscopic (~10/2016) Ovaries conserved. Postop vaginal cuff hematoma managed expectantly. EP Ligation of fallopian tube sleeve gastrectomy (~2015) [facility] Spinal Fusion (~2006) nerve stimulator implanted Status post cholecystectomy Social History Smoking/Tobacco Use Status: Current every day Tobacco Type: e-cigarettes Quit status: not considering quitting Second Hand Exposure: Yes Smoking risk assessment performed?: Yes Alcohol Intake: current Alcohol Intake frequency: holidays/special occasions only Alcohol type: hard liquor Details: OCCASIONAL Drug use: Current Sobriety Substance use type: does not use Details: Marijuana for pain mgmt. Last used 6 months ago Caregiver/Support person: No Household members: spouse, family and children Housing: house Number of Children: 3 number of grandchildren: 3 Pets and animals: Yes Pets and animals: cat(s) and dog(s) Sexually active: Yes Do you think of yourself as: straight/heterosexual Current gender identity: female Other: 09/01/20 Favio Rooney What is your relationship status?: How often do you talk on the phone with friends or family?: three or more times per week How often do you get together with friends or relatives?: twice per week Do you belong to any clubs or organized social groups?: no Panel score (0-1 are the most socially isolated patients): 2 What type of physical activity do you participate in: walking Cindy/Mormonism: None Special cindy needs: No Seatbelt use: always Helmet use: No Drive intox or ride w/intox driver license agent: No Do you feel safe at home: Yes (Spouse in room) Do you feel safe in your relationship?: Yes Female Reproductive History Menstrual Menopause type: surgical History History 3 Para Hx # Term Pregnancies 3 Multiple births Hx # Pregnancies Ectopic pregnancies AB induced Hx Number of Living Children AB spontaneous Exam Const General: no acute distress Orientation: alert HENMT Head: normal to inspection Ears: external ears normal General nose exam: external nose normal Mouth: moist mucous membranes Eyes General: appearance normal, both eyes and all related structures Neck Neck: normal visual inspection Resp Effort & Inspection: normal respiratory effort and able to speak in complete sentences Cardio Rate: regular rate Skin General skin exam: no rashes or lesions noted Neuro General: patient alert and patient oriented x3 Extrem General: normal to inspection Psych Mental Status: mental status grossly normal Course Vital Signs Vital signs: Vital Signs Temperature 36.2 C L 01/03/22 12:57 Pulse 77 01/03/22 12:57 Respiratory Rate 16 01/03/22 12:57 Blood Pressure 144/71 H 01/03/22 12:57 Pulse Oximetry 99 01/03/22 12:57 Temperature 36.2 C L 01/03/22 12:57 Pulse 77 01/03/22 12:57 Respiratory Rate 16 01/03/22 12:57 Respiratory Effort 01/03/22 13:07 Blood Pressure 144/71 H 01/03/22 12:57 Pulse Oximetry 99 01/03/22 12:57 Oxygen Delivery Method Room Air 01/03/22 12:57 Oxygen Flow Rate 0 01/03/22 12:57 Pain Level 9 01/03/22 13:07
[2022-01-03] MEDS: Prochlorperazine 10 MG/2 ML VIAL IVP (13:27)
[2022-01-03] MEDS: Normal Saline 1,000 ML 1000 ML IV (13:27)
[2022-01-03] MEDS: Dexamethasone 10 MG/ML VIAL IVP (13:27)
[2022-01-03] MEDS: Ketorolac 15 MG/ML VIAL IVP (13:27)
[2022-01-03 14:22] VITALS: BP 136/80; PULSE 78; RESP 18; TEMP 36.8; O2SAT 99
[2022-01-03 14:29] VITALS: BP 114/72; PULSE 67; RESP 17; O2SAT 99
== END 2022-01-03 14:28 | disposition home or self-care (01) ==
PROVIDERS: Emergency Provider Emergency Medicine; PCP Family Medicine
DX: G43.909 Migraine, unspecified, not intractable, without status migrainosus (principal)
CPT/HCPCS: 96361; 96374; 96375; 99284; 99283; J0780; J1100; J1885

== ENCOUNTER 2022-06-15 07:45 | Emergency (ER) | payer MEDICARE, SELFPAY ==
--- OUTSIDE RECORDS SUMMARY | 2022-06-15 07:49 | XMS_ITS | Encounter Summary ---
:1975 [place] [address] Care Team Providers Name Role Phone Juma Herrera MD Primary Care Provider Encounter Details Date Type Department Care Team Description 06/10/2014 Hospital Encounter Outpatient Surgery Cheng Car , Breast lesion Center Raysa Ramirez MD [facility] [address] [place] [address] [place] [id number] [phone] (Wo rk) Social History Tobacco Use Types Packs/Day Years Used Date Former Smoker Sex Assigned at Date Recorded Not on file documented as of this encounter Last Filed Vital Signs Vital Sign Reading Time Taken Comments Blood Pressure 141/78 06/10/2014 12:13 PM EDT Pulse 99 06/10/2014 12:13 PM EDT Temperature 36.9 ??C (98.4 ??F) 06/10/2014 12:13 PM EDT Respiratory Rate 20 06/10/2014 12:13 PM EDT Oxygen Saturation 97% 06/10/2014 12:16 PM EDT Inhaled Oxygen Concentration - - Weight - - Height - - Body Mass Index - - documented in this encounter Discharge Instructions Discharge InstructionsDarren Rai RN - 06/10/2014 12:18 PM EDT General Anesthesia Discharge Instructions Go home and rest. You may be sleepy for several hours. Take it easy as sudden position changes may cause nausea and/or dizziness. Use caution on stairs. Do not smoke if you are alone. Follow a light to regular diet as tolerated today. If nausea occurs, start with clear liquids, and progress slowly to a regular diet. Do not drive, operate machinery, drink alcoholic beverages or make any legal decisions after having general anesthesia. The medications given change your reaction time and alter your judgement. IV site -- slight redness is normal, you can use warm compresses. If tenderness and redness increases or foul drainage occurs, please contact your M.D. Patients who have had endotracheal tubes/LMA (tubes used by the anesthesia staff to ensure a safe airway during your operation) may have a sore throat. This is normal and cold liquids or soothing lozengers will help ease this discomfort. Narcotic pain medications can cause constipation, please ask the surgeons office what they recommendfor prevention of this. Some non-pharmaceutical means of constipation prevention include increasing intake of fluids, eating more fruits and vegetables as well as fruit juices. If you are uncomfortable and/or unable to urinate within 8 hours of discharge and it is before 5 pm,call your physician. If it is after 5pm go to the closest emergency room or call the hospital heading machine operator at [phone] and ask for physician steward/stewardess economy class covering for your physician. Questions or problems after 5pm or on a weekend: Call the [facility] heading machine operator at and ask for the physician steward/stewardess economy class covering for your doctor. Patient Kenrick Leslie MD - 06/10/2014 12:22 PM EDT Instructions following Breast Surgery Wound Care: Keep dressing on incision for the next 3-4 days, then you may remove and leave open to air. You may shower tomorrow morning, but do not scrub area vigorously for the next 2 weeks. Do not soak incision(s) under water for the next 2 weeks (i.e. soaking in bath or swimming) as this may promote a wound infection. You may remove dressing if it becomes saturated/wet and replace with dry gauze as needed for seepage/comfort. If there are pieces of tape directly on the incision (steri-strips or butterflys), please leave them on until they fall off on their own. You may trim them back as they begin to peel up. ICE: You may apply ice to incision during the first 48 hours following surgery to help limit swelling, bruising, and discomfort. You may also find wearing a bra for the first two days following surgerywill help with discomfort, although this is not absolutely necessary. Your stitches will dissolve and do not need to be removed. Activity: As tolerated by your comfort level. Call Doctor for: Please call if you notice worsening redness or drainage from incision(s) lasting longer than 5 days after your surgery, any foul-smelling drainage from the incision, pain not controlled by pain medications, persistent nausea and vomiting, or for any fevers greater than 101.3 F. The number for questions is [phone] before 5 PM weekdays and [phone] after 5 PM and weekends. Pain Medication: No driving for 8 hours after any dose of opioid pain medication if one was prescribed for you. You may use ibuprofen (motrin, advil) in addition to this medication if your pain is not totally controlled by the opioid. Follow-up: Follow-up appointment will be scheduled with Dr. Car in 1-2 weeks. Appointment will be mailed to you. Please call [phone] (clinic number for appointments) to confirm date and time of your appointment if you do not receive your apointment in 1 week. documented in this encounter Medications at Time of Discharge Medication Sig Dispensed Refills Start Date End Date HYDROcodone-acetaminophen Take 1-2 tablets by 30 tablet 0 1 5-325 mg Tablet mouth every 6 hours as needed for Pain. propranolol (INDERAL LA) 80 Take 120 mg by 0 mg Capsule,Sustained Action mouth daily. 24 hr pregabalin (LYRICA) 100 mg Take 100 mg by 0 Capsule mouth 3 times daily. meloxicam (MOBIC) 15 mg Take 15 mg by mouth 0 Tablet daily. methylphenidate (RITALIN) 20 Take 20 mg by mouth 0 mg tablet 2 times daily. methylphenidate (RITALIN LA) Take 10 mg by mouth 0 10 mg 24 hr capsule every morning. CIS Free Text Med - 0 09/10/2006 Phenergan ibuprofen (ADVIL;MOTRIN) 600 600mg, PO, QID 0 05/2007 mg tablet DULoxetine (CYMBALTA) 30 mg 0 09/10/19 07 capsule documented as of this encounter H&P Notes Cheng Car MD - 06/10/2014 11:09 AM EDT I examined this patient today She is marked and is ready for surgery Kenrick Diehl MD - 06/10/2014 11:06 AM EDT Interval H&P The patient was seen and examined in the pre-operative holding area. There have been no interval changes in history and physical. Needle localization preformed this morning. Complaining of pain at insertion site \KENRICK DIEHL MD documented in this encounter Miscellaneous Notes Miscellaneous - Provider, Scanning - 06/10/2014 8:58 PM EDT Miscellaneous - Provider, Scanning - 06/10/2014 1:49 PM EDT Op Note - Cheng Car MD - 06/10/2014 12:16 PM EDT [facility] Operative Note Patient Name: Tia Spain : [id number] MR#: [id number] Case Date: 06/10/2014 Surgeon: Surgeon(s) and Role: * Cheng Car MD - Primary * Kenrick Diehl MD - Resident-Middleware Developer Preoperative diagnosis: RIGHT BREAST LESION Postoperative diagnosis: RIGHT BREAST LESION Procedure(s): EXCISION LESION, BREAST W/ PREOP.MARKER (NEEDLE LOC.) MAC Estimated Blood Loss: 20 ml Indications for Surgery: Tia Spain is a 38-year-old woman who had a screening mammogram that showed a 2.7 cm spiculated mass at 8:30 nine cm from her right nipple. Core biopsy showed a sclerosing papillary lesion. We are now proceeding with complete excision of this mass for definitive histologic evaluation. Prior to the surgery the patient had a wire placed in her right breast. Details of the Operation: She was prepped with ChloraPrep and draped in a way that just the skin where we were going to make the incision and where the wire was coming out of her breast was showing. She does have some chronic folliculitis of the inferior portion of her breast and so we kept all the follicles out of the operative field. We anesthetized the skin and made a 4 cm long incision. We dissected to the wire, flicked the wire into the incision and then widely excised the tissue around the wire. The specimen was inked with six different colors of ink for orientation, was sent to Radiology where a specimen mammogram showed that the entire sclerosing mass and the clip were present in the specimen. The specimen was then sent to Pathology. We obtained meticulous hemostasis. I left 5 mL of Marcaine and Lidocaine solution in the wound. We closed the deep dermis with interrupted 3-0 Vicryl and the skin with 4-0 Monocryl. Gauze and Tegaderm were placed, the patient tolerated the operation well. OR Attestation - Cheng Car MD - 06/10/2014 12:16 PM EDT Attestation: Case Date: 06/10/2014 I performed this operation with the assistance of dr kenrick CAR MD 06/10/2014 documented in this encounter Plan of Treatment Not on filedocumented as of this encounter Procedures Procedure Name Priority Date/Time Associated Diagnosis Comme nts MAMMO SPECIMEN Routine 06/10/2014 11:56 AM Breast lesion Resul ts for this EDT procedure are i n the results section. SURGICAL PATHOLOGY Routine 06/10/2014 11:49 AM Re sults for this REPORT EDT procedure are i n the results section. SPECIMEN TO Routine 06/10/2014 11:49 AM Results for this PATHOLOGY EDT procedure are i n the results section. EXCISION LESION, 06/10/2014 11:18 AM RIGHT BREAST LESI ON BREAST W/ EDT PREOP.MARKER (NEEDLE LOC.) (WRVU 6.69) documented in this encounter Results Mammo specimen (06/10/2014 11:56 AM EDT) Anatomical Region Laterality Modality Breast N/A Mammography Specimen (Source) Anatomical Collection Method Collection Time Re ceived Time Location / / Volume Laterality 06/10/2014 11:56 AM EDT Narrative 06/11/2014 5:34 PM EDT NEEDLE LOCALIZATION AND SPECIMEN RADIOGRAPH OF THE RIGHT BREAST ON 06/10/14: ?? CLINICAL INDICATION: Right breast 15mm m ass/clip in the lower, outer quadrant at 0830, 9cm from the nipple. ?? Needle localization of the suspicious ar ea (clip/lesion) in the Right breast was performed with mammographic guidance . ?? Cranio-caudal and 90&ordm; digital mammo graphy views were obtained following localization to document wire position. ?? Specimen mammography was performed. The suspicious areas (sclerosing lesion and clip) are centered in the specimen. ? Report of specimen called to the OR at 1 1:56am. ?? I performed the procedure without a resi dent. Procedure Note Pratibha Rodriguez MD - 06/02 NEEDLE LOCALIZATION AND SPECIMEN RADIOGR [facility] OF THE RIGHT BREAST ON 06/10/14: CLINICAL INDICATION: Right breast 15mm m ass/clip in the lower, outer quadrant at 0830, 9cm from the nipple. Needle localization of the suspicious ar ea (clip/lesion) in the Right breast was performed with mammographic guidance . Cranio-caudal and 90&ordm; digital mammo graphy views were obtained following localization to document wire position. Specimen mammography was performed. The suspicious areas (sclerosing lesion and clip) are centered in the specimen. Report of specimen called to the OR at 1 1:56am. I performed the procedure without a resi dent. Cheng Car MD IMG MAMMO ORDERABLES Surgical Pathology Report (06/10/2014 11:49 AM EDT) Component Value Ref Test Analysis Performed At [facility] Range Method Time Signature Surgical CERNER Pathology ? [facility] Report ? Provider: ?? CHENG CAR ?Pt. Name: ?? CORETTA , TIA L ? Acc #: ?[id number] ?Pt. MRN: ?[id number] ? Col Date: ?? 06/10/2014 ? /Sex: ?1 ,(39 ? years),Female ? Rec Date: ?? 06/10/2014 ? LOC: ?[facility] ? SURGICAL PATHOLOGY ? ---Pathologic Diagnosis--- ? Right breast lumpectomy: ? Atypical papillary, radial sclerosing lesion. ? Small radial scars, florid UDH, papillary hy perplasia, intraductal ? papilloma, cysts, scl erosing adenosis and columnar cell hyperplasia with ? atypia (focal). ? Focal stromal PASH. ? Healing biopsy site. ? (See Comment.) ? 06/11/14 ? [facility] ? 06/14/14 Verified by: ? Rosalie Vega DO ? Pathologist ? (Electronic Si gnature) ? The attending pathologist whose signature appears o n this report has ? reviewed all diagnostic slides and has edited the piter ss and/or ? microscopic portion of the report in rendering the fi nal pathologic ? diagnosis. ? ---Comment--- ? The patient's breast tissue has a dense area of radial sclerosing lesions ? ([id number]), papil kaleb, and sclerosing adenosis, forming a conglomerate ? of structures. ??The atypia is characterized by areas of epithelial ? expansion with cytologic clonal appearance. ? No malignancy is seen. ? ---Gross Description--- ? A - Labeled/Fixative: Right breast lumpectomy, fresh. ? SPECIMEN DESCRIPTION ? Resection Specimen: Intact lumpectomy ? Qty/Size/Weight: Single, 8.5 x 5.5 x 2.6 cm, 52 grams . ? Radiograph: Specimen mammogram sh ows localization wire and biopsy clip. ? Mammogram dated 06/08 shows a 15 mm mass/architectural distortion at ? 8:30, nine cm from the nipple. ? Specimen Description: According to the established pr otocol the ink ? designations are red (medial), yellow (lateral), orange (cranial), green ? (caudal), black (deep) and blue (superficial). ? Tissue Sections: The specimen is serially sectioned perpendicular to the ? long axis from red to yellow into 15 slices, ea ch averaging 0.5 cm in ? thickness. ? [facility] ? Provider: ?? CHENG CAR ?Pt. Name: ?? TIA SPAIN ? Acc #: ?[id number] ?Pt. MRN: ?[id number] ? Col Date: ?? 06/10/2014 ? /Sex: ?1 ,(39 ? years),Female ? Rec Date: ?? 06/10/2014 ? LOC: ?[facility] ? LESION ? SURGICAL PATHOLOGY ? Description: Poorly circumscribed mass. ? Size: 1.2 x 1.1 x 1.0 cm. ? Color: Pale yellow and hemorrhagic. ? Consistency: Firm, rubbery. ? Location: Slices X-XI. ? Nearest Margin: 0.3 cm to uninked margin. ? Other Margins: 1.3 cm to the black margin, 2.5 cm to orange margin, 2.3 cm ? to green margin, 3.5 cm to red margin, 2.0 cm to yell ow margin. ? OTHER ? Parenchyma: Remaining parenchyma consists of fibrofatty breast tissue. No ? other lesions grossly identified. ? Wire/Clip: Wire tip identified in slides IV. Biopsy clip identified in ? slides X. ? SECTIONS/PROCESSING: (A1) red margin; (A2 ) health and safety representative section from ? slice III; (A3) repre sentative section from slice VII; (A4) health and safety representative ? section from slice V; (A5) site of biopsy clip; (A6-A7) health and safety representative ? sections from slice XI; (A8) health and safety representative sec tion of slice XV. (R8) ? Ischemic Time: N/A minutes ??lloyd ? ---Clinical Information--- ? Specimen Submitted: ? A - Right breast lumpectomy ? Clinical History: ? Right breast lesion ? Clinical Diagnosis: ? Same Specimen (Source) Anatomical Collection Method Collection Time Re ceived Time Location / / Volume Laterality 06/10/2014 11:49 AM EDT Cheng Car MD PATHOLOGY/CYTOLOGY ORDERABLE S Performing Organization Address City/State/ZIP Code Phon e Number [place] [phone] [facility] Specimen to Pathology (surgical or derm) (06/10/2014 11:49 AM EDT) Specimen Anatomical Collection Method Collection Time Receive d Time (Source) Location / / Volume Laterality AP Specimen 06/10/2014 11:49 06/10/2014 AM EDT 11:49 AM EDT Narrative RAYNA ELLIS - 06/10/2014 11:49 AM EDT Specimen requisition ordered. ??Separate Pathology report to follow Cheng Car MD PATHOLOGY/CYTOLOGY ORDERABLE S Performing Organization Address City/State/ZIP Code [place] [address] RAYNA ELLIS documented in this encounter Visit Diagnoses Diagnosis Breast lesion Unspecified breast disorder documented in this encounter Administered Medications Inactive Administered Medications - up to 3 most recent administrations Medication Order MAR Action Action Date Dose Rate Site fentaNYL (PF) 50 mcg/mL 2mL Given 06/10/2014 10:34 AM EDT 50 mcg syringe 25-50 mcg, Intravenous, EVERY 5 MIN PRN, Pain, for breakthrough pain, Starting on Karen 06/10/14 at 1031, Until Karen 06/10/14 at 1501, Hold for respiratory rate less than 10 per minute. Maximum dose: 250 mcg over one hour., PACU Recovery HYDROcodone-acetaminophen 5-325 mg per Given 06/10/2014 12:46 PM EDT 1 tablet tablet 1-2 tablet 1-2 tablet, Oral, EVERY 6 HOURS PRN, Starting on Karen 06/10/14 at 1215, Until Karen 06/10/14 at 1501, Pain, Maximum dose of acetaminophen is 4000 mg from all sources in 24 hours., Routine documented in this encounter Active and Recently Administered Medications Times are shown in EDT. Continuous Medication Order 06/08/2014 06/09/2014 06/10/2014 lactated ringers infusion 1,000 mL (CANCELED) 1117 (New Bag - Provider: Becki Teresa CRNA)1131 (Canceled Entry - Provider: Becki Teresa CRNA) 1,000 mL, at 100 mL/hr, Intravenous, CON TINUOUS, Starting Karen 06/10/14 at 0715, Until Karen 06/10/14 at 1501, Day of Surgery (Day of Procedure) PRN Medication Order 06/08/2014 06/09/2014 06/10/2014 BUpivacaine (PF) (MARCAINE) 0.5 % (5 mg/mL) injection (CANCELED) 1144 (Given - Provider: Cheng Car MD - Comment: 30ml of 0.25% bupivicaine mixed with 30ml of 1% Lidocaine. 10 ml administered pre-op by surgeon.) ONCE PRN, Starting Karen 10//14 at 1144, Until Karen 10 at 1501, Intra- Operative (Intra-Procedure), Routine 120 0 (Given - Provider: Cheng Car MD - Comment: additional 5ml of 1:1 0.5% bupivacaine/1% lidocaine solution given) fentaNYL (PF) 50 mcg/mL 2mL syringe (CANCELED) 1034 (Given - Provider: Ivelisse Bailey, ALEXANDER - Comment: given preop for wire breast pain) 25-50 mcg, Intravenous, EVERY 5 MIN PRN, Starting Karen 10/14 at 1031, Until Karen 10 at 1501, Pain, for breakthrough pain, Hold for respiratory rate less than 10 per minute. Maximum dose: 250 mcg over one hour., PACU Recovery, Routine HYDROcodone-acetaminophen 5-325 mg per tablet 1-2 tablet 1246 (Given - Provider: Darren Rai, RN) 1-2 tablet, Oral, EVERY 6 HOURS PRN, Sta rting Karen 10/14 at 1215, Until Karen 10 at 1501, Pain, Maximum dose of acetaminophen is 4000 mg from all sources in 24 hours., Routine lidocaine (PF) (XYLOCAINE) 10 mg/mL (1 %) injection (CANCELED) 1144 (Given - Provider: Cheng Car MD - Comment: 30ml of 0.25% bupivicaine mixed with 30ml of 1% Lidocaine. 10 ml administered pre-op by surgeon.) ONCE PRN, Starting Karen 10 at 1144, Until Karen 1014 at 1501, Intra- Operative (Intra-Procedure), Routine 120 0 (Given - Provider: Cheng Car MD - Comment: additional 5mls of 1:1 1% lidocaine/0.5% bupivacaine solution given) documented in this encounter Care Teams Windows Consultant Relationship Specialty Start Date End Date Juma Herrera MD PCP - General 05/21/[address] [place] [address] [address] [place] [address] documented as of this encounter
--- OUTSIDE RECORDS SUMMARY | 2022-06-15 07:49 | XMS_ITS | Encounter Summary ---
:1975 Author Organization [facility] [place] [address] Care Team Providers Name Role Phone Juma Herrera MD Primary Care Provider Encounter Details Date Type Department Care Team Description 05/27/2014 Hospital Encounter Mammography at [facility], DR STEVENSON Upton (abnormal) [facility] Dariela Stiles MD [address] [place] [address] [place], [place] examination of breast [phone] Social History Tobacco Use Types Packs/Day Years Used Date Former Smoker Sex Assigned at Date Recorded Not on file documented as of this encounter Medications at Time of Discharge Medication Sig Dispensed Refills Start Date End Date methylphenidate (RITALIN) 20 Take 20 mg by 0 mg tablet mouth 2 times daily. methylphenidate (RITALIN LA) Take 10 mg by 0 10 mg 24 hr capsule mouth every morning. CIS Free Text Med - 0 09/10/2006 Phenergan ibuprofen (ADVIL;MOTRIN) 600 600mg, PO, QID 0 05/2007 mg tablet DULoxetine (CYMBALTA) 30 mg 0 09/10/19 07 capsule gabapentin (NEURONTIN) 300 Take 300 mg by 0 06/03/2014 mg capsule mouth 3 times daily. topiramate (TOPAMAX) 100 mg Take 100 mg by 0 06/03/2014 tablet mouth 2 times daily. NORTRIPTYLINE HCL 0 09/10/2006 014 (NORTRIPTYLINE ORAL) documented as of this encounter Plan of Treatment Not on filedocumented as of this encounter Procedures Procedure Name Priority Date/Time Associated Diagnosis Comme nts MAMMO US VACUUM Routine 05/27/2014 11:44 AM Resul ts for this ASSISTED BIOPSY EDT procedure ar e in the results section. SPECIMEN TO Routine 05/27/2014 11:21 AM Results for this PATHOLOGY EDT procedure are i n the results section. documented in this encounter Results Mammo- US vacuum assisted biopsy (05/27/2014 11:44 AM EDT) Anatomical Region Laterality Modality Breast N/A Mammography Specimen (Source) Anatomical Collection Method Collection Time Re ceived Time Location / / Volume Laterality 05/27/2014 11:44 AM EDT Impressions 05/29/2014 7:50 AM EDT Impression: Concordant result Recommendation: Surgical excision as dis cussed with the patient and conveyed to CBP. I performed the procedure without a resi dent. Cell phone: [phone] Narrative 05/29/2014 7:50 AM EDT VACUUM ASSISTED ULTRASOUND GUIDED BIOPSY OF THE RIGHT BREAST ON 05/27/14: Informed consent was obtained. Using berna rile technique and 1% Lidocaine used for local anesthesia, a skin incision wa s made and a biopsy was performed using Ultrasound for image guidance. Clinical indication: Right breast 15mm m ass/architectural distortion at 0830, 9cm from the nipple. 12-gauge Atec US device 5 core biopsy specimens obtained. ?? A SMark Eviva-Stereo 13 Cylinder marker clip was placed. Cranio-caudal and lateral digital mammography performed to determine biopsy marker placement, which was shown to be at the biopsy site . Satisfactory sampling was obtained. There were no procedural complications. Imaging diagnosis: Cancer, focal fibrosi s, radial scar Pathologic diagnosis: Sclerosing papillo ma incompletely excised. ?? Procedure Note Antonella Boston MD - 06/08/2014Formattin g of this note might be different from the original. VACUUM ASSISTED ULTRASOUND GUIDED BIOPSY OF THE RIGHT BREAST ON 05/27/14: Informed consent was obtained. Using berna rile technique and 1% Lidocaine used for local anesthesia, a skin incision wa s made and a biopsy was performed using Ultrasound for image guidance. Clinical indication: Right breast 15mm m ass/architectural distortion at 0830, 9cm from the nipple. 12-gauge Atec US device 5 core biopsy specimens obtained. A SMark Eviva-Stereo 13 Cylinder marker clip was placed. Cranio-caudal and lateral digital mammography performed to determine biopsy marker placement, which was shown to be at the biopsy site . Satisfactory sampling was obtained. There were no procedural complications. Imaging diagnosis: Cancer, focal fibrosi s, radial scar Pathologic diagnosis: Sclerosing papillo ma incompletely excised. IMPRESSION Impression: Concordant result Recommendation: Surgical excision as dis cussed with the patient and conveyed to CBP. I performed the procedure without a resi dent. Cell phone: [phone] Dariela Stiles MD IMG MAMMO ORDERABLES Specimen to Pathology (surgical or derm) (05/27/2014 11:21 AM EDT) Specimen Anatomical Collection Method Collection Time Receive d Time (Source) Location / / Volume Laterality AP Specimen 05/27/2014 11:21 05/27/2014 AM EDT 11:21 AM EDT [facility]arrative [facility] - 05/27/2014 11:21 AM EDT Specimen requisition ordered. ??Separate Pathology report to follow Antonella Boston MD PATHOLOGY/CYTOLOGY ORDERABLE S Performing Organization Address City/State/[place] [address] [facility] documented in this encounter Visit Diagnoses Diagnosis Other (abnormal) findings on radiologica l examination of breast documented in this encounter Administered Medications Inactive Administered Medications - up to 3 most recent administrations Medication Order MAR Action Action Date Dose Rate Site lidocaine (XYLOCAINE) 10 mg/mL (1 Given 05/27/2014 11:45 AM EDT 10 mg %) injection 10 mg 10 mg, Intradermal, ONCE, 1 dose, On Karen 05/27/14 at 1145, Routine lidocaine-EPINEPHrine 1 %-1:100,000 Given 05/27/2014 11:45 AM ED T 20 mLs injection 20 mL 20 mL, Intradermal, ONCE, 1 dose, On Karen 05/27/14 at 1145, Routine documented in this encounter Care Teams Cardiovascular Rn Relationship Specialty Start Date End Date Juma Herrera MD PCP - General 05/21/14 [address] [place] [address] documented as of this encounter
--- OUTSIDE RECORDS SUMMARY | 2022-06-15 07:49 | XMS_ITS | Encounter Summary ---
:1975 Author Organization [facility] [place] [address] Care Team Providers Name Role Phone Juma Herrera MD Primary Care Provider Reason for Visit Reason Comments Breast Mass Encounter Details Date Type Department Care Team Description 06/02/2014 Office Visit Hematology and Cheng Barber, Abnormal mammogram [place] [facility] [place] [facility] [address] GENERAL SURGERY [address] [place] [address] [phone] Social History Tobacco Use Types Packs/Day Years Used Date Former Smoker Sex Assigned at Date Recorded Not on file documented as of this encounter Last Filed Vital Signs Vital Sign Reading Time Taken Comments Blood Pressure 131/65 06/02/2014 9:38 AM EDT Pulse 81 06/02/2014 9:38 AM EDT Temperature 36.3 ??C (97.3 ??F) 06/02/2014 9:38 AM EDT Respiratory Rate 20 06/02/2014 9:38 AM EDT Oxygen Saturation 100% 06/02/2014 9:38 AM EDT Inhaled Oxygen Concentration - - Weight 147.7 kg (325 lb 9.9 oz) 06/02/2014 9:38 AM EDT Height 169 cm (5' 6.54) 06/02/2014 9:38 AM EDT Body Mass Index 51.71 06/02/2014 9:38 AM EDT documented in this encounter Progress Notes Cheng Barber MD - 06/02/2014 9:55 AM EDT COPY: Juma Herrera M.D. 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 Tia states she has had an area of fullness in her right lateral breast since 1998, that it has really been unchanged significantly since then. Her last mammogram was in 1998. Then she had her routine screening mammogram done recently that showed a 2.7 cm spiculated mass located at 8:30, nine cm from her right nipple. Ultrasound showed a 1.4 cm mass associated with that same area. Core biopsy under ultrasound showed a sclerosing papillary lesion. She has a family history of breast cancer in a great aunt. She is and is premenopausal. Current medications include Cymbalta, Neurontin, nortriptyline, Topamax and Ritalin and Tinactin. She has adverse reactions to CODEINE which causes nausea and vomiting. Her past surgical history is significant for surgery on her low back where she had a fusion and in her neck where she had a fusion. She has also had a cholecystectomy and a tubal ligation. On review of systems she has depression, anxiety, bipolar disorder and posttraumatic stress disorder. She also has borderline personality. Her psychiatrist is Dr. Andrea Laura. She feels that she is pretty well under control of things from a psychological standpoint right now. She has no cardiac, pulmonary or renal symptomatology. The rest of her review of systems is negative except for some mild soreness of her right breast which predated the biopsy. Social History: She is unaccompanied at this visit. 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 When she asked about this I told her that she would be justified to have about a week off after the surgery. On physical exam she is alert and oriented, in general she appears well. She has some piercings above her eye and in her nose. She has multiple tattoos. She is morbidly obese. On examination of her right breast there are no palpable masses, there are no nipple abnormalities. She does have several areas of folliculitis on her inferior breast. She states that she uses Tinactin to prevent yeast infection on a nightly basis. There is no right axillary adenopathy. She has full range of motion of the right arm, no right arm edema. There are no left nipple abnormalities or breast masses, there is no left axillary adenopathy. Abdomen is obese. I personally reviewed her mammogram and ultrasound images. Impression: A 38-year-old woman with a core biopsy of a concerning mammographic mass that shows a sclerosing papillary lesion. I recommend that we excise this mass completely for a definitive diagnosis. She understands that there is a chance that there still may be malignancy in this area since the lesion was not completely sampled. I asked her to wash with soap this area the night before and the morning of surgery to help minimize the chance of an infection. We will consider using an Ioban on her skin at the time of surgery to help prevent infection along with preoperative antibiotics and ChloraPrep prep. We will schedule her surgery at her convenience. documented in this encounter Plan of Treatment Not on filedocumented as of this encounter Visit Diagnoses Diagnosis Abnormal mammogram - Primary Abnormal mammogram, unspecified documented in this encounter Care Teams Event Producer Relationship Specialty Start Date End Date Juma Herrera MD PCP - General 05/21/[address] [place] [address] documented as of this encounter
--- OUTSIDE RECORDS SUMMARY | 2022-06-15 07:49 | XMS_ITS | Encounter Summary ---
:1975 Author Organization [facility] Address [facility] [place] [address] Care Team Providers Name Role Phone Juma Herrera MD Primary Care Provider Encounter Details Date Type Department Care Team Description 05/27/2014 Hospital Encounter Mammography at [facility] Other (abnormal) [facility] findings [place] [address] examination of breast [phone] Social History Tobacco Use Types Packs/Day Years [...] Priority Date/Time Associated Diagnosis Comme nts MAMMO DIRECT Routine 05/27/2014 11:45 Other (abnormal) Results for this DIGITAL UNILATERAL AM EDT findings on procedure are in radiological the results examination of breast sectio n. SURGICAL PATHOLOGY Routine 05/27/2014 11:15 Resul ts for this REPORT AM EDT procedure are i n the results section. documented in this encounter Results Mammo direct digital unilateral (05/27/2014 11:45 AM EDT) Anatomical Region Laterality Modality Breast N/A Mammography Specimen (Source) Anatomical Collection Method Collection Time Re ceived Time Location / / Volume Laterality 05/27/2014 11:45 AM EDT Impressions 06/08/2014 10:16 AM EDT Impression: Concordant result Recommendation: Surgical excision as dis cussed with the patient and conveyed to [facility]. I performed the procedure without a resi dent. Cell phone: [phone] Narrative 06/08/2014 10:16 AM EDT VACUUM ASSISTED ULTRASOUND GUIDED BIOPSY [...] papillo ma incompletely excised. ?? Procedure Note Gabe Boston MD - 06/08/2014Formattin g of this [...] cussed with the patient and conveyed to [facility]. I performed the procedure without a resi dent. Cell phone: [phone] Monica Ann MD IMG MAMMO ORDERABLES Surgical Pathology Report (05/27/2014 11:15 AM EDT) Component Value Ref Test Analysis Performed At [facility] Range Method Time Signature Surgical CERNER Pathology ? [facility] Report ? Provider: ?? GABE BOSTON ?Pt. Name: ?? CLA RK, TIA L ? Acc #: ?[id number] ?Pt. MRN: ?[id number] ? Col Date: ?? 05/27/2014 ? /Sex: ?1 ,(38 ? years),Female ? Rec Date: ?? 05/27/2014 ? LOC: ?3S ? SURGICAL PATHOLOGY ? ---Pathologic Diagnosis--- ? Needle biopsies: ?Right breast. ? Diagnosis: ?Sclerosing papillar y lesion (See Comment) ? Fibrocystic disease with adenosis, cysts, ? usual ductal hyperpl radha ? Microcalcifications: ??Identified in adenopsis ? CR-0 ? 05/28/14 ? VAM ? 05/28/14 Verified by: ? Erasmo MEHTA, Yfn Trinh ? Pathologist ? (Electronic Si gnature) ? The attending pathologist whose signature appears o n this report has ? reviewed all diagnostic slides and has edited the piter ss and/or ? microscopic portion of the report in rendering the fi nal pathologic ? diagnosis. ? ---Comment--- ? In these sections the lesion has features of a benign sclerosing papilloma ? however it is incompletely sampled. ? ---Gross Description--- ? A - Labeled/Fixative: Right breast ultrasound biopsy, formalin. ? Quantity/Size: Seven, ranging from 0.3 x 0.3 cm to 2. 5 x 0.3 cm. ? Tissue Description: Fibrofatty needle core biopsies. ? Ischemic Time: 5 minutes. ? Sections/Processing: (T2) ??sns ? ---Clinical Information--- ? Specimen Submitted: ? A - Right breast ultrasound biopsy ? Clinical History: ? Architectural distortion ? Clinical Diagnosis: ? 1. ??CA Specimen (Source) Anatomical Collection Method Collection Time Re ceived Time Location / / Volume Laterality 05/27/2014 11:15 AM EDT Gabe Boston MD PATHOLOGY/CYTOLOGY ORDERABLE S Performing Organization Address City/State/ZIP [place] [address] [facility] [place] [facility] documented in this encounter Visit Diagnoses Diagnosis Other (abnormal) findings on radiologica l examination of breast documented in this encounter Care Teams Acetylene Gas Compressor Relationship Specialty Start Date End Date Juma Herrera MD PCP - General 05/21/[address] [place] [address] documented as of this encounter
--- OUTSIDE RECORDS SUMMARY | 2022-06-15 07:49 | XMS_ITS | Encounter Summary ---
:1975 Author Organization [facility] Address [facility] [place] [address] Care Team Providers Name Role Phone Donna Mohr APRN Primary Care Provider Encounter Details Date Type Department Care Team Description 05/18/2014 External Results XRay at [facility] [place], Scanning [address] [place] [address] [place] [address] Social History Tobacco Use Types Packs/Day Years Used Date Former Smoker Sex Assigned at Date Recorded Not on file documented as of this encounter Plan of Treatment Not on filedocumented as of this encounter Procedures Procedure Name Priority Date/Time Associated Diagnosis Comme nts MAMMOGRAM SCAN Routine 05/14/2014 documented in this encounter Results Scan Doc: Mammogram (05/14/2014) Anatomical Region Laterality Modality Other Narrative This result has an attachment that is no t available. Scanning Provider MEDIA MGR SCAN EXT ORDR/RSLT documented in this encounter Visit Diagnoses Not on filedocumented in this encounter Care Teams Piping Design Specialist Relationship Specialty Start Date End Date Donna Mohr APRN PCP - General 12/12/11 05/20/14 [place] [address] documented as of this encounter
--- OUTSIDE RECORDS SUMMARY | 2022-06-15 07:49 | XMS_ITS | Encounter Summary ---
:1975 Author Organization [facility] [place] [address] Care Team Providers Name Role Phone Juma Herrera MD Primary Care Provider Encounter Details Date Type Department Care Team Description 11/30/2016 [facility] [place] [address] [place] [address] DIAGNOSTIC RADIOLOGY [phone] [place], [place] [address] (Wo rk) Social History Tobacco Use Types [...] 07 capsule documented as of this encounter Plan of Treatment Not on filedocumented as of this encounter Procedures Procedure Name Priority Date/Time Associated Diagnosis Comme nts FILM LIBRARY Routine 11/30/2016 12:00 AM Pain Results for this STORAGE ONLY CT EDT procedure ar e in PELVIS the results section. documented in this encounter Results Film Library- Storage Only CT Pelvis (11/30/2016 12:00 AM EDT) Specimen (Source) Anatomical Location Collection Method / Collectio n Time Received Time / Laterality Volume Narrative RAD - 11/30/2016 2:31 PM EDT This exam is for storage only and is aut o-finalizing. French Graff MD IMG FILM LIBRARY ORDERABLES Performing Organization Address City/State/ZIP Code Phon e Number [place], [place] documented in this encounter Visit Diagnoses Diagnosis Pain Generalized pain documented in this encounter Care Teams Insulation Worker Apprentice Relationship Specialty Start Date End Date Juma Herrera MD PCP - General 05/21/[address] [place] [address] documented as of this encounter
--- OUTSIDE RECORDS SUMMARY | 2022-06-15 07:49 | XMS_ITS | Encounter Summary ---
:1975 Author Organization [place] [address] Care Team Providers Name Role Phone Juma Herrera MD Primary Care Provider Reason for Visit Reason Comments Follow-up Encounter Details Date Type Department Care Team Description 06/17/2014 Office Visit Hematology and Cheng Barber Papillom a of breast, [place]cology [place] [facility] [place] (Primary Dx) [facility] [address] [place] GENERAL SURGERY [address] [place] [address] [phone] Social History Tobacco Use Types Packs/Day Years Used Date Former Smoker Sex Assigned at Date Recorded Not on file documented as of this encounter Last Filed Vital Signs Vital Sign Reading Time Taken Comments Blood Pressure 138/67 06/17/2014 1:38 PM EDT Pulse 85 06/17/2014 1:38 PM EDT Temperature 37.1 ??C (98.8 ??F) 06/17/2014 1:38 PM EDT Respiratory Rate 20 06/17/2014 1:38 PM EDT Oxygen Saturation 100% 06/17/2014 1:38 PM EDT Inhaled Oxygen Concentration - - Weight 149 kg (328 lb 7.8 oz) 06/17/2014 1:38 PM EDT Height 169 cm (5' 6.54) 06/17/2014 1:38 PM EDT Body Mass Index 52.17 06/17/2014 1:38 PM EDT documented in this encounter Progress Notes Cheng Barber MD - 06/17/2014 1:51 PM EDT COPY: Juma Herrera M.DEv Weber is a 45-year-old woman who developed a 2.7 cm mass in her right breast seen on routine screening mammography. Core biopsy showed a sclerosing papillary lesion. On June 10, 2014 I removed the entire 2.7 cm mass. Pathology on this revealed an atypical papillary sclerosing lesion. There was no sign of malignancy. She now returns for a check. On physical exam her incision is beautifully healed. There is no sign of infection or hematoma. Her breast contour is unchanged from its preoperative contour. Impression: Tia is doing very well after excision of this mammographic abnormality from her right breast. I recommended that she have a new baseline mammogram in 6 months which I will order for her. She will then continue to have annual mammography which she will arrange for herself locally. I will see her back on a p.r.n. basis. documented in this encounter Plan of Treatment Not on filedocumented as of this encounter Visit Diagnoses Diagnosis Papilloma of breast, right - Primary documented in this encounter Care Teams Horticulture Teacher Relationship Specialty Start Date End Date Juma Herrera MD PCP - General 05/21/[address] [place] [address] documented as of this encounter
--- OUTSIDE RECORDS SUMMARY | 2022-06-15 07:49 | XMS_ITS | Encounter Summary ---
:1975 Author Organization [facility] [place] [address] Care Team Providers Name Role Phone Juma Herrera MD Primary Care Provider Encounter Details Date Type Department Care Team Description 06/10/2014 Surgery Outpatient Surgery Memo Car MD EXCISION LESION, BREAST Center [facility] W/ PREOP.MARKER ([facility] DR LOCEv) (WRVU 6.69) [facility] [place] [address] [place] [phone] Social History Tobacco Use Types Packs/Day Years [...] closest emergency room or call the hospital glove machine operator at [phone] and ask for physician spa concierge covering for your physician. Questions or problems after 5pm or on a weekend: Call the [facility] glove machine operator at and ask for the physician spa concierge covering for your doctor. Patient Kenrick Leslie [...] 101.3 F. The number for questions is [phone] before 5 PM weekdays and [phone] after 5 PM and weekends. Pain Medication: [...] will be mailed to you. Please call [phone] (clinic number for appointments) to confirm date [...] ibuprofen (ADVIL;MOTRIN) 600 600mg, PO, QID 0 01/ 05/2007 mg tablet DULoxetine (CYMBALTA) 30 mg 0 09/10/19 07 capsule documented as of this encounter H&P Notes Cehng Car MD - 06/10/2014 11:09 AM EDT [...] Car MD - 06/10/2014 12:16 PM EDT [facility] Operative Note Patient Name: Tia Spain : [id number] MR#: [id number] Case Date: 06/10/2014 Surgeon: Surgeon(s) and Role: * Cheng Car MD - Primary * Kenrick Diehl MD - Resident-Machinist Set Up Preoperative diagnosis: RIGHT BREAST LESION Postoperative diagnosis: [...] without a resi dent. Cheng Car MD G MAMMO ORDERABLES Surgical Pathology Report (06/10/2014 11:49 AM EDT) Component Value Ref Test Analysis Performed At [facility] Range Method Time Signature Surgical CERNER Pathology ? [facility] Report ? Provider: ?? CHENG CAR ?Pt. Name: ?? CORETTA TIA ? Acc #: ?[id number] ?Pt. MRN: ?[id number] ? Col Date: ?? 06/10/2014 ? /Sex: [...] dense area of radial sclerosing lesions ? ([id number]), papil kaleb, and sclerosing adenosis, forming a [...] averaging 0.5 cm in ? thickness. ? [facility] ? Provider: ?? CHENG CAR ?Pt. Name: ?? TIA SPAIN ? Acc #: ?[id number] ?Pt. MRN: ?[id number] ? Col Date: ?? 06/10/2014 ? /Sex: [...] ? SECTIONS/PROCESSING: (A1) red margin; (A2 ) inside account representative section from ? slice III; (A3) repre sentative section from slice VII; (A4) inside account representative ? section from slice V; (A5) site of biopsy clip; (A6-A7) inside account representative ? sections from slice XI; (A8) inside account representative sec tion of slice XV. (R8) [...] Organization Address City/State/ZIP [place] [address] [facility] Specimen to Pathology (surgical or derm) (06/10/2014 [...] Organization Address City/State/ZIP Code Phon e Number [place] [id number] RAYNA ELLIS documented in this encounter Visit Diagnoses Not on filedocumented in this encounter Administered Medications Inactive Administered Medications - up to 3 most recent administrations Medication Order MAR Action Action Date Dose Rate Site BUpivacaine (PF) Given 06/10/2014 12:00 PM 2.5 mLs 19- Surgical Site (MARCAINE) 0.5 % (5 EDT mg/mL) injection ONCE PRN, Starting on Karen 06/10/14 at 1144, Until Karen 06/10/14 at 1501, Intra-Operative (Intra-Procedure), Routine Given 06/10/2014 11:44 AM EDT 30 mLs 19- Surgical Site fentaNYL (PF) 50 mcg/mL 2mL syringe Given 06/10/2014 10:34 AM EDT 50 mcg 25-50 mcg, Intravenous, EVERY 5 MIN PRN, [...] 24 hours., Routine lidocaine (PF) (XYLOCAINE) 10 Given 06/10/2014 12:00 PM 25 mg 19- Surgical Site mg/mL (1 %) injection EDT ONCE PRN, Starting on Karen 06/10/14 at 1144, Until Karen 06/10/14 at 1501, Intra-Operative (Intra-Procedure), Routine Given 06/10/2014 11:44 AM EDT 1 vial 19- Surgical Site documented in this encounter Active and Recently [...] pre-op by surgeon.) ONCE PRN, Starting Karen 06/10/14 at 1144, Until Karen 06/10/14 at 1501, Intra- Operative (Intra-Procedure), Routine 120 0 (Given - Provider: Cheng Car MD - Comment: additional 5ml of 1:1 0.5% bupivacaine/1% lidocaine solution given) fentaNYL (PF) 50 mcg/mL 2mL syringe (CANCELED) 1034 (Given - Provider: Ivelisse Bailey RN - Comment: given preop for wire breast pain) 25-50 mcg, Intravenous, EVERY 5 MIN PRN, Starting Karen 10 at 1031, Until Karen 10 at 1501, Pain, for breakthrough pain, Hold for respiratory rate less than 10 per minute. Maximum dose: 250 mcg over one hour., PACU Recovery, Routine HYDROcodone-acetaminophen 5-325 mg per tablet 1-2 tablet 1246 (Given - Provider: Darren Rai, RN) 1-2 tablet, Oral, EVERY 6 HOURS PRN, Sta rting Karen 06/10/14 at 1215, Until Karen 06/10/14 at 1501, Pain, Maximum dose of acetaminophen is 4000 mg from all sources in 24 hours., Routine lidocaine (PF) (XYLOCAINE) 10 mg/mL (1 %) injection (CANCELED) 1144 (Given - Provider: Cheng Car MD - Comment: 30ml of 0.25% bupivicaine mixed with 30ml of 1% Lidocaine. 10 ml administered pre-op by surgeon.) ONCE PRN, Starting Karen 06/10/14 at 1144, Until Karen 06/10/14 at 1501, Intra- Operative (Intra-Procedure), Routine 120 0 (Given - Provider: Cheng Car MD - Comment: additional 5mls of 1:1 1% lidocaine/0.5% bupivacaine solution given) documented in this encounter Care Teams Boat Hoist Operator Relationship Specialty Start Date End Date Juma Herrera MD PCP - General 05/21/[address] [place] [address] [address] [place] [address] documented as of this encounter
--- OUTSIDE RECORDS SUMMARY | 2022-06-15 07:49 | XMS_ITS | Encounter Summary ---
:1975 Author Organization [facility] [place] [address] Care Team Providers Name Role Phone Donna Mohr APRN Primary Care Provider Encounter Details Date Type Department Care Team Description 05/18/2014 Orders Only Radiology Poppy Lai MD [facility] [address] [facility] [place] [phone] (Wo rk) Social History Tobacco Use Types Packs/Day Years Used Date Former Smoker Sex Assigned at Date Recorded Not on file documented as of this encounter Plan of Treatment Not on filedocumented as of this encounter Procedures Procedure Name Priority Date/Time Associated Diagnosis Comme nts REQUEST FOR 2ND Routine 05/18/2014 3:25 PM Result s for this READ MAMMO EDT procedure are i n the results section. documented in this encounter Results Request for 2nd read Mammo (05/18/2014 3:25 PM EDT) Anatomical Region Laterality Modality Other Specimen (Source) Anatomical Collection Method Collection Time Re ceived Time Location / / Volume Laterality 05/18/2014 3:25 PM EDT Narrative 05/21/2014 10:37 AM EDT INTERPRETATION OF OUTSIDE MAMMOGRAMS (PERFORMED ON 05/14/14) FROM [facility] DATED 05/19/14: ?? DIAGNOSTIC IMAGING SUMMARY: ?? RIGHT BREAST: INCOMPLETE (BIRADS Categor y 0). ?? Finding: Spiculated mass. ?? Size: 2-3cm. ?? Location: 0900, 8cm from the nipple. ?? Recommendation: Pending further evaluati on with mammography and ultrasound. This is likely amenable to ultrasound gu ided biopsy if it persists. ?? LEFT BREAST: NEGATIVE (BIRADS Category 1 ). ?? NARRATIVE: ?? CLINICAL INDICATION: I have been asked t o consult on this patient by Dr. Dariela Stiles because she believes a review of th is study may change or alter the care of this patient. ?? TECHNIQUE: Bilateral baseline screening mammograms from 05/14/14 from [facility]. ?? FINDINGS: The breasts are of scattered f ibroglandular density. ?? In the outer aspect of the Right breast at approximately 0900 there is a 2-3cm spiculated mass/architectural distortion suspicious for malignancy. There are no other areas of abnormality within the Right breast. ?? The Left breast is normal. Procedure Note Antonella Boston MD - 05/21/2014Formattin g of this note might be different from the original. INTERPRETATION OF OUTSIDE MAMMOGRAMS (PE RFORMED ON 05/14/14) FROM [facility] DATED 05/19/14: DIAGNOSTIC IMAGING SUMMARY: RIGHT BREAST: INCOMPLETE (BIRADS Categor y 0). Finding: Spiculated mass. Size: 2-3cm. Location: 0900, 8cm from the nipple. Recommendation: Pending further evaluati on with mammography and ultrasound. This is likely amenable to ultrasound gu ided biopsy if it persists. LEFT BREAST: NEGATIVE (BIRADS Category 1 ). NARRATIVE: CLINICAL INDICATION: I have been asked t o consult on this patient by Dr. Dariela Stiles because she believes a review of th is study may change or alter the care of this patient. TECHNIQUE: Bilateral baseline screening mammograms from 05/14/14 from [facility]. FINDINGS: The breasts are of scattered f ibroglandular density. In the outer aspect of the Right breast at approximately 0900 there is a 2-3cm spiculated mass/architectural distortion suspicious for malignancy. There are no other areas of abnormality within the Right breast. The Left breast is normal. Dariela Stiles MD IMG OUTSIDE INTERPRETATION O RDERABLES documented in this encounter Visit Diagnoses Not on filedocumented in this encounter Care Teams Fbi Profiler Relationship Specialty Start Date End Date Donna Mohr APRN PCP - General 12/12/11 05/20/14 [facility] [place] [address] documented as of this encounter
--- OUTSIDE RECORDS SUMMARY | 2022-06-15 07:49 | XMS_ITS | Encounter Summary ---
:1975 Author Organization [facility] [place] [address] Care Team Providers Name Role Phone Donna Mohr APRN Primary Care Provider Reason for Visit Reason Comments Skin Lesion Encounter Details Date Type Department Care Team Description 01/22/2012 Office Visit Dermatology Ronda Hernandez PA Dermal nevus (Primary [facility] D[facility]) [place] [address] DERMATOLOGY [phone] [place] [id number] Social History Tobacco Use Types Packs/Day Years Used Date Former Smoker Sex Assigned at Date Recorded Not on file documented as of this encounter Progress Notes Marques Black MD - 01/22/2012 4:04 PM EDT Provider MARQUES BLACK MD I saw and evaluated the patient. I have reviewed the patient's history during the visit and I agree with details as written. My physical examination confirms MARGARITA Masters findings. The assessment and plan were formulated in discussion with me at the time of visit and I agree with them as documented. MARQUES BLACK MD, M.D. Section of Dermatology Donna Romero LPN - 01/22/2012 2:33 PM EDT DERMATOLOGY NEW PATIENT CLINIC NOTE Date of service: 01/22/2012 Tia Spain : 1975 Provider: Ronda Hernandez PA-C Chief Complaint Patient presents with ??? Skin Lesion HPI Tia Spain is a 36 y.o. year old female. New patient; self-referred by Dr. Donna Mohr for evaluation of a nevus on her right church that has been bothering her with symptoms of pain, redness, swelling and drainage over the last 2-3 months. She states it will swell up and then leak a bloody purulent discharge. Today is a good day for symptoms. The mole itself has been there her entire life. SKIN HX: None FAMILY HX: ADR: Allergies Allergen Reactions ??? Codeine Phos CIS - Nausea/Vomiting MEDS: Current outpatient prescriptions ordered prior to encounter Medication Sig Dispense Refill ??? CIS Free Text Med - Phenergan ??? ibuprofen (ADVIL;MOTRIN) 600 mg tablet 600mg, PO, QID ??? DULoxetine (CYMBALTA) 30 mg capsule ??? NORTRIPTYLINE HCL (NORTRIPTYLINE ORAL) ??? DISCONTD: amlodipine (NORVASC) 2.5 mg tablet 2.5MG, PO, Once daily ??? DISCONTD: hydroCODone-acetaminophen (VICODIN) 5-500 mg per tablet 1-2 Tablet(s), PO, Q6H prn ??? DISCONTD: carisoprodol (SOMA) 350 mg tablet ??? DISCONTD: INDOMETHACIN (INDOCIN ORAL) 25mg, PO, Three times daily,PRN ??? DISCONTD: lamoTRIgine (LAMICTAL) 100 mg tablet ROS General: feeling well Skin: denies other skin complaints EXAM General: NAD, pleasant, cooperative Skin: An exam of the skin from the neck up was performed. This includes examination of the skin of the face and ears Significant skin findings: 1.0..4 cm flesh colored papule located on-right church. No deep cystic component appreciated on physical examination. She has some evidence of irritation with scaling over the superior aspect of the nevus. ASSESSMENT/PLAN: 1.Dermal nevus right church, possible cystic component Procedure: Skin biopsy. Location:right church Discussed indications for procedure and expectations including risks and benefits. Verbal consent obtained. Skin prep with alcohol. Local anesthesia with 1% xylocaine, 1/100,000 epinephrine, 0.1 mEq/mLbicarbonate. A sample of the lesion was removed by shave technique to the level of the dermis and submitted to Pathology. Hemostasis obtained (AlCl and/or electrocautery). There were no complications; the pt. tolerated the procedure well. The wound was dressed. Post-procedure expectations, wound care and activity restrictions were reviewed. Follow-up based on pathology results. The patient's case was discussed with Dr. Toby Black. The patient was also examined by this attending. Note initiated by: DONNA ROMERO LPN Routed to physician for review and changes: Ronda Hernandez PA-C Section of Dermatology [facility] documented in this encounter Plan of Treatment Scheduled Orders Name Type Priority Associated Diagnoses Order S chedule Skin Biopsy Dermatology Routine Dermal nevus Ordered: 2011 documented as of this encounter Procedures Procedure Name Priority Date/Time Associated Diagnosis Comme nts SURGICAL PATHOLOGY Routine 01/22/2012 3:28 PM Res ults for this REPORT EDT procedure are i n the results section. SPECIMEN TO Routine 01/22/2012 3:02 PM Dermal nevus Results f or this PATHOLOGY EDT procedure are i n the results section. documented in this encounter Results SURGICAL PATHOLOGY REPORT (01/22/2012 3:28 PM EDT) Component Value Ref Test Analysis Performed At [facility] Range Method Time Signature Surgical CERNER Pathology ? [facility] Report ? Provider: ?? RONDA HERNANDEZ ?Pt. Name: ?? TIA MOTTA ? Acc #: ?[id number] ? Pt. ? Col Date: ?? 01/22/2012 ? /Sex: ?1 ,(36 ? years),Female ? Rec Date: ?? 01/22/2012 ? LOC: ?4M ? SURGICAL PATHOLOGY ? ---Pathologic Diagnosis--- ? Skin, right church, shave removal: ?1. Dermal nevus. ?2. Superficial aspect of epithelial cyst wall, ( see Comment). ? Dictated by: ??Diana Woodward, DO ? Dermatopathology Fellow ? As the attending phys ician, I attest that I examined the histologic slides, ? and confirm Dr. Diana Woodward's diagnosis. ? CR-0 ? 01/23/12 ? AJE ? 01/23/12 Verified by: ? Luis Manuel Hussein MD. ? Dermatopatholo gist ? (Electronic Si gnature) ? The attending pathologist whose signature appears o n this report has ? reviewed all diagnostic slides and has edited the piter ss and/or ? microscopic portion of the report in rendering the fi nal pathologic ? diagnosis. ? ---Comment--- ? This may represent th e superficial portion of a small epidermal inclusion ? cyst. ??Clinicopathologic correlation is recommended. ? ---Microscopic Description--- ? Slides reviewed, microscopic description not recorded . ? ---Gross Description--- ? Labeled/Fixative: ? Labeled with the patient's na me, formalin. ? Qty/Size/Weight: ?Single shave, 0.5 cm, ko with a 0.4-cm, pink, fleshy ? papule. ? Sections/Processing: ??Bisected. ??(T1) aje/SNS ? ---Clinical Information--- ? Specimen Submitted: ? A - Right church, shave removal ? Clinical History/Diagnosis: ? [facility] ? Provider: ?? RONDA HERNANDEZ ?Pt. Name: ?? JESSE K, TIA L ? Acc #: ?[id number] ? Pt. ? Col Date: ?? 01/22/2012 ? /Sex: ?1 ,(36 ? years),Female ? Rec Date: ?? 01/22/2012 ? LOC: ?4M ? 0.4-cm, flesh-colored papule / dermal nevus ? cystic component Specimen (Source) Anatomical Collection Method Collection Time Re ceived Time Location / / Volume Laterality 01/22/2012 3:28 PM EDT Ronda AVILA PATHOLOGY/CYTOLOGY ORDERABLE S Performing Organization Address City/State/[place] [address] [facility] Specimen to Pathology (surgical or derm) (01/22/2012 3:02 PM EDT) Specimen Anatomical Collection Method Collection Time Receive d Time (Source) Location / / Volume Laterality AP Specimen 01/22/2012 3:02 PM 2 3:02 EDT PM EDT Narrative RAYNA ELLIS - 01/22/2012 3:02 PM E DT Specimen requisition ordered. ??Separate Pathology report to follow Marques Black MD PATHOLOGY/CYTOLOGY ORDERABLE S Performing Organization Address City/State/[place] [address] [facility] documented in this encounter Visit Diagnoses Diagnosis Dermal nevus - Primary Benign neoplasm of skin, site unspecifie d documented in this encounter Care Teams Provider Relations Manager Relationship Specialty Start Date End Date Donna Mohr APRN PCP - General 12/12/11 05/20/[address] [place] [address] [place] [address] documented as of this encounter
--- OUTSIDE RECORDS SUMMARY | 2022-06-15 07:49 | XMS_ITS | Encounter Summary ---
:1975 [place] [address] Care Team Providers Name Role Phone Juma Herrera MD Primary Care Provider Encounter Details Date Type Department Care Team Description 06/02/2014 Orders Only Main Operating Room Cheng Salazar MD Breast lesion [facility] GENERAL SURGERY [facility] [place] [place] [address] [place] [address] [phone] Social History Tobacco Use Types Packs/Day Years Used Date Former Smoker Sex Assigned at Date Recorded Not on file documented as of this encounter Plan of Treatment Not on filedocumented as of this encounter Results Mammo specimen (06/10/2014 11:56 [...] procedure without a resi dent. Procedure Note Diflorio Didier, Pratibha M, MD - 06/02 NEEDLE LOCALIZATION AND SPECIMEN [...] the procedure without a resi dent. Cheng Barber MD IMG MAMMO ORDERABLES Mammo needle localization (06/10/2014 8:20 AM EDT) Anatomical Region Laterality Modality Breast N/A Mammography Specimen (Source) Anatomical Collection Method Collection Time Re ceived Time Location / / Volume Laterality 06/10/2014 8:20 AM EDT Narrative 06/11/2014 5:34 PM EDT [...] the procedure without a resi dent. Cheng Barber MD IMG MAMMO ORDERABLES documented in this encounter Visit Diagnoses Diagnosis Breast lesion Unspecified breast disorder Breast lesion Unspecified breast disorder Breast lesion Unspecified breast disorder documented in this encounter Care Teams Coating Mixer Relationship Specialty Start Date End Date Juma Herrera MD PCP - General 05/21/14 [address] [place] [address] documented as of this encounter
--- OUTSIDE RECORDS SUMMARY | 2022-06-15 07:49 | XMS_ITS | Clinical Summary ---
:1975 Author Organization [facility] [place] [address] Care Team Providers Name Role Phone Juma Herrera MD Primary Care Provider Allergies Active Allergy Reactions Severity Noted Date Comments Codeine Phosphate CIS - Naus ea/Vomiting Medications Medication Sig Dispensed Refills Start Date End Date Status CIS Free Text Med - 0 09/10/2006 Active Phenergan ibuprofen (ADVIL;MOTRIN) 600mg, PO, QID 0 09/10/2006 Active 600 mg tablet DULoxetine (CYMBALTA) 30 0 09/10/2006 Active mg capsule methylphenidate Take 20 mg by 0 Active (RITALIN) 20 mg tablet mouth 2 times daily. methylphenidate (RITALIN Take 10 mg by 0 Active LA) 10 mg 24 hr capsule mouth every morning. propranolol (INDERAL LA) Take 120 mg by 0 Active 80 mg Capsule,Sustained mouth daily. Action 24 hr pregabalin (LYRICA) 100 Take 100 mg by 0 Active mg Capsule mouth 3 times daily. meloxicam (MOBIC) 15 mg Take 15 mg by 0 Active Tablet mouth daily. HYDROcodone-acetaminophe Take 1-2 tablets 30 tablet 0 06/10/20 14 Active n 5-325 mg Tablet by mouth every 6 hours as needed for Pain. Active Problems Problem Noted Date Papilloma of right breast 06/17/2014 Social History Tobacco Use Types Packs/Day Years Used Date Former Smoker Sex Assigned at Date Recorded Not on file Last Filed Vital Signs Vital Sign Reading [...] Mass Index 52.17 06/17/2014 1:38 PM EDT Plan of Treatment Health Maintenance Due Date Last Done Comments Covid-19 Vaccine (#1) 1975 HIV screen 1991 Hepatitis C Screening 1991 Tdap adult 1992 Tetanus vaccine 1992 HPV test 2003 PAP Smear 2003 Breast Cancer Share Decision Needed 2013 Colonoscopy 2018 Influenza (Flu) vaccine (1 of 1 - Influenza standard 05/03/2022 series) Advance Directives Latest Code Status on File Code Status Date Activated Date Inactivated Comments Full Code 06/10/2014 6:46 AM 06/10/2014 3:01 PM Does patient have decision making capacity? Yes, order is based on Patient wishes. Care Teams Tool Designer Relationship Specialty Start Date End Date Juma Herrera MD PCP - General 05/21/[address] [place] [address]
--- OUTSIDE RECORDS SUMMARY | 2022-06-15 07:49 | XMS_ITS | Encounter Summary ---
:1975 Author Organization [facility] [place] [address] Care Team Providers Name Role Phone Juma Herrera MD Primary Care Provider Encounter Details Date Type Department Care Team Description 06/10/2014 Hospital Encounter Mamm[facility] Breast lesion [facility] Cheng Barber MD [facility] [place] [place] [address] [place] [address] Social History Tobacco Use Types Packs/Day [...] encounter Procedures Procedure Name Priority Date/Time Associated Comments Diagnosis MAMMO NEEDLE Routine 06/10/2014 8:20 AM Breast lesion Results for this LOCALIZATION EDT procedure are i n the results section. documented in this encounter Results Mammo needle localization (06/10/2014 8:20 AM EDT) [...] disorder documented in this encounter Care Teams Licensed Physical Therapist Assistant Relationship Specialty Start Date End Date Juma Herrera MD PCP - General 05/21/[address] [place] [address] [address] [place] [address] documented as of this encounter
--- OUTSIDE RECORDS SUMMARY | 2022-06-15 07:49 | XMS_ITS | Encounter Summary ---
:1975 [place] [address] Care Team Providers Name Role Phone Juma Herrera MD Primary Care Provider Encounter Details Date Type Department Care Team Description 11/30/2016 Notes Only Radiology at [facility] Compa Chu, [facility] [place] [address] RADIOLOGY DEPT [phone] [place], [place] [address] (Wo rk) Social History Tobacco Use Types Packs/Day Years Used Date Former Smoker Sex Assigned at Date Recorded Not on file documented as of this encounter Progress Notes Compa Chu, - 11/30/2016 3:18 PM EDT We were contacted by Dr. Dariela Stiles regarding Ms. Tia Spain. Ms. Spain is a 41 y.o. female with a history of bipolar disorder, anxiety, and PTSD who is POD#8 s/p laparoscopic-assisted vaginal total hysterectomy for menometrorrhagia at [facility]. This surgery had no immediate complications, and she was discharged to home on POD#1. She presented to the ED at [facility] yesterday (11/29/2016) with a complaint of increased vaginal discharge, which the patient was concerned may be fecal in origin. LEAFLET DISTRIBUTOR consultation in the ED found the discharge to be malodorous, but serosanguinous. A CT scan with PO and IV contrast showed an approximately 6 cm air-filled cavity in the central pelvis. Ms. Spain underwent a CT with rectal contrast today, which demonstrated no evidence of a rectovaginal fistula, and was seen at Dr. Stiles's office today. Ms. Spain was not febrile at present, but she did have a WBC of 12.7. Otherwise, she is not ill-appearing and admission to [facility] was not thought to be warranted per Dr. Stiles. Dr. Stiles requested a drain placement into this air-filled cavity. After reviewing the imaging with Dr. Nassar it was determined that this air-filled cavity was not amenable to drain placement as their was no safe window for CT- guided drain placement due to the risk of traversing arteries, and US-guided transvaginal or transrectal drain placement would not be safe due to the risk of injuring bowel.Dr. Stiles understood these reasons not to proceed with image- guided drain placement at this time. explained the IR services at [facility] are available 25/03, and if any new imaging becomes available for review then we would be glad to assist with any possible interventions for Ms. Spain. Compa Chu DO 11/30/2016 documented in this encounter Plan of Treatment Not on filedocumented as of this encounter Visit Diagnoses Not on filedocumented in this encounter Care Teams Perioperative Tech Relationship Specialty Start Date End Date Juma Herrera MD PCP - General 05/21/[address] [place] [address] documented as of this encounter
--- OUTSIDE RECORDS SUMMARY | 2022-06-15 07:49 | XMS_ITS | Encounter Summary ---
:1975 Author Organization [facility] Address [facility] [place] [address] Care Team Providers Name Role Phone Juma Herrera MD Primary Care Provider Encounter Details Date Type Department Care Team Description 05/26/2014 Notes Only Radiology Wu Vaz MD [facility] [place] [address] RADIOLOGY DEPT [phone] [place], [place] [address] (Wo rk) Social History Tobacco Use Types Packs/Day Years Used Date Former Smoker Sex Assigned at Date Recorded Not on file documented as of this encounter Progress Notes Wu Vaz - 05/26/2014 11:37 AM EDT Pre-procedure note for needle breast biopsies performed in radiology. Procedure date: Tomorrow Procedure type: right breast ultrasound guided biopsy Allergies: codeine Medications: Current Outpatient Prescriptions on File Prior to Visit Medication Sig Dispense Refill ??? gabapentin (NEURONTIN) 300 mg capsule Take 300 mg by mouth 3 times daily. ??? topiramate (TOPAMAX) 100 mg tablet Take 100 mg by mouth 2 times daily. ??? methylphenidate (RITALIN) 20 mg tablet Take 20 mg by mouth 2 times daily. ??? methylphenidate (RITALIN LA) 10 mg 24 hr capsule Take 10 mg by mouth every morning. ??? CIS Free Text Med - Phenergan ??? ibuprofen (ADVIL;MOTRIN) 600 mg tablet 600mg, PO, QID ??? DULoxetine (CYMBALTA) 30 mg capsule ??? NORTRIPTYLINE HCL (NORTRIPTYLINE ORAL) Anticoagulation status: none stopped on: N/A Imaging reviewed and procedural plan approved by Dr. Antonella Boston documented in this encounter Plan of Treatment Not on filedocumented as of this encounter Visit Diagnoses Not on filedocumented in this encounter Care Teams Handicapper [employer]ness Racing Relationship Specialty Start Date End Date Juma Herrera MD PCP - General 05/21/[address] [place] [address] documented as of this encounter
--- OUTSIDE RECORDS SUMMARY | 2022-06-15 07:49 | XMS_ITS | Encounter Summary ---
:1975 Author Organization [facility] Address [facility] [place] [address] Care Team Providers Name Role Phone Donna Mohr APRN Primary Care Provider Encounter Details Date Type Department Care Team Description 05/18/2014 Hospital Encounter XRay at [facility], DR [address] [place] [address] [place] [address] Social History Tobacco Use Types Packs/Day [...] on filedocumented in this encounter Care Teams Party Plan Sales Agent Relationship Specialty Start Date End Date Donna Mohr APRN PCP - General 12/12/11 05/20/14 [address] [place] [address] documented as of this encounter
--- OUTSIDE RECORDS SUMMARY | 2022-06-15 07:49 | XMS_ITS | Encounter Summary ---
:1975 Author Organization [facility] Address [facility] [place] [address] Care Team Providers Name Role Phone Juma Herrera MD Primary Care Provider Encounter Details Date Type Department Care Team Description 06/09/2014 Notes Only Radiology uW Vaz MD [facility] [place] [address] RADIOLOGY DEPT [phone] [place], [place] [address] (Wo rk) Social History Tobacco Use Types Packs/Day Years Used Date Former Smoker Sex Assigned at Date Recorded Not on file documented as of this encounter Progress Notes Wu Vaz - 06/09/2014 2:01 PM EDT Pre-procedure note for needle breast biopsies performed in radiology. Procedure date: Tom[place] Procedure type: right breast NLOC with U/S guidance Allergies: Allergies Allergen Reactions ??? Codeine Phosphate CIS - Nausea/Vomiting Medications: Current Outpatient Prescriptions on File Prior to Visit Medication Sig Dispense Refill ??? propranolol (INDERAL LA) 80 mg Capsule,Sustained Action 24 hr Take 120 mg by mouth daily. ??? pregabalin (LYRICA) 100 mg Capsule Take 100 mg by mouth 3 times daily. ??? meloxicam (MOBIC) 15 mg Tablet Take 15 mg by mouth daily. ??? methylphenidate (RITALIN) 20 mg tablet Take 20 mg by mouth 2 times daily. ??? methylphenidate (RITALIN LA) 10 mg 24 hr capsule Take 10 mg by mouth every morning. ??? CIS Free Text Med - Phenergan ??? ibuprofen (ADVIL;MOTRIN) 600 mg tablet 600mg, PO, QID ??? DULoxetine (CYMBALTA) 30 mg capsule Anticoagulation status: none stopped on: N/A Imaging reviewed and procedural plan approved by Dr. Bardales documented in this encounter Plan of Treatment Not on filedocumented as of this encounter Visit Diagnoses Not on filedocumented in this encounter Care Teams Cartographic Drafter Relationship Specialty Start Date End Date Juma Herrera MD PCP - General 05/21/[address] [place] [address] documented as of this encounter
--- OUTSIDE RECORDS SUMMARY | 2022-06-15 07:49 | XMS_ITS | Encounter Summary ---
:1975 Author Organization [facility] Address [facility] [place] [address] Care Team Providers Name Role Phone Juma Herrera MD Primary Care Provider Encounter Details Date Type Department Care Team Description 05/20/2014 Orders Only Mammography at [facility] Antonella Boston MD Other (abnormal) [facility] [address] [place] [address] NUCLEAR MEDICINE examination of breast [phone] [place], [place] [address] (Primary Dx) Social History Tobacco Use Types Packs/Day Years Used Date Former Smoker Sex Assigned at Date Recorded Not on file documented as of this encounter Plan of Treatment Not on filedocumented as of this encounter Results Mammo breast US unilateral bilateral (05/24/2014 9:40 AM EDT) Anatomical Region Laterality Modality Breast N/A Mammography Specimen (Source) Anatomical Collection Method Collection Time Re ceived Time Location / / Volume Laterality 05/24/2014 9:40 AM EDT Narrative 05/27/2014 10:31 AM EDT RIGHT UNILATERAL DIAGNOSTIC MAMMOGRAM AND RIGHT BREAST ULTRASOUND ON 05/24/14: ?? DIAGNOSTIC IMAGING SUMMARY: ?? RIGHT BREAST LESION 1: HIGHLY SUGGESTIVE OF MALIGNANCY (BIRADS Category 5). ?? Finding: Mass. ?? Size: 15mm. ?? Location: 0830 position, 9cm from the ni pple. ?? Recommendation: Ultrasound guided biopsy to confirm or refute this is a malignancy versus a radial scar. This guy s been scheduled for 05/27/14 at 10:50am. ?? Preliminary report E-mailed to Dr. Tirara Stiles on 05/24/14. ?? NARRATIVE: ?? CLINICAL INDICATION: Question of a mass and possible architectural distortion in the outer Right breast noted on recen t interpretation of outside mammograms. ?? TECHNIQUE: ML, spot CC and spot MLO 3D v iews obtained with direct digital capture followed by an ultrasound of the Right breast. ?? FINDINGS: In the lateral aspect of the R ight breast is a 2.7cm spiculated mass with distortion. The remainder of the br east is normal. ? Targeted ultrasound at the 0830 position , 9cm from the nipple demonstrates a 15mm hypoechoic mass, taller than wide w ith irregular and spiculated margins, decreased through transmission and immed iately adjacent cysts. ? Procedure Note Monica Ann MD - 05/27/2014Format ting of this note might be different from the original. RIGHT UNILATERAL DIAGNOSTIC MAMMOGRAM AN D RIGHT BREAST ULTRASOUND ON 05/24/14: DIAGNOSTIC IMAGING SUMMARY: RIGHT BREAST LESION 1: HIGHLY SUGGESTIVE OF MALIGNANCY (BIRADS Category 5). Finding: Mass. Size: 15mm. Location: 0830 position, 9cm from the ni pple. Recommendation: Ultrasound guided biopsy to confirm or refute this is a malignancy versus a radial scar. This guy s been scheduled for 05/27/14 at 10:50am. Preliminary report E-mailed to Dr. iTarra Stiles on 05/24/14. NARRATIVE: CLINICAL INDICATION: Question of a mass and possible architectural distortion in the outer Right breast noted on recen t interpretation of outside mammograms. TECHNIQUE: ML, spot CC and spot MLO 3D v iews obtained with direct digital capture followed by an ultrasound of the Right breast. FINDINGS: In the lateral aspect of the R ight breast is a 2.7cm spiculated mass with distortion. The remainder of the br east is normal. Targeted ultrasound at the 0830 position , 9cm from the nipple demonstrates a 15mm hypoechoic mass, taller than wide w ith irregular and spiculated margins, decreased through transmission and immed iately adjacent cysts. Antonella Boston MD IMG MAMMO ORDERABLES Mammo direct digital unilateral (05/24/2014 9:09 AM EDT) Anatomical Region Laterality Modality Breast N/A Mammography Specimen (Source) Anatomical Collection Method Collection Time Re ceived Time Location / / Volume Laterality 05/24/2014 9:09 AM EDT Narrative 05/27/2014 10:31 AM EDT RIGHT UNILATERAL DIAGNOSTIC MAMMOGRAM AND RIGHT BREAST ULTRASOUND ON 05/24/14: ?? DIAGNOSTIC IMAGING SUMMARY: ?? RIGHT BREAST LESION 1: HIGHLY SUGGESTIVE OF MALIGNANCY (BIRADS Category 5). ?? Finding: Mass. ?? Size: 15mm. ?? Location: 0830 position, 9cm from the ni pple. ?? Recommendation: Ultrasound guided biopsy to confirm or refute this is a malignancy versus a radial scar. This guy s been scheduled for 05/27/14 at 10:50am. ?? Preliminary report E-mailed to Dr. Tiarra Stiles on 05/24/14. ?? NARRATIVE: ?? CLINICAL INDICATION: Question of a mass and possible architectural distortion in the outer Right breast noted on recen t interpretation of outside mammograms. ?? TECHNIQUE: ML, spot CC and spot MLO 3D v iews obtained with direct digital capture followed by an ultrasound of the Right breast. ?? FINDINGS: In the lateral aspect of the R ight breast is a 2.7cm spiculated mass with distortion. The remainder of the br east is normal. ? Targeted ultrasound at the 0830 position , 9cm from the nipple demonstrates a 15mm hypoechoic mass, taller than wide w ith irregular and spiculated margins, decreased through transmission and immed iately adjacent cysts. ? Procedure Note Monica Ann MD - 05/27/2014Format ting of this note might be different from the original. RIGHT UNILATERAL DIAGNOSTIC MAMMOGRAM AN D RIGHT BREAST ULTRASOUND ON 05/24/14: DIAGNOSTIC IMAGING SUMMARY: RIGHT BREAST LESION 1: HIGHLY SUGGESTIVE OF MALIGNANCY (BIRADS Category 5). Finding: Mass. Size: 15mm. Location: 0830 position, 9cm from the ni pple. Recommendation: Ultrasound guided biopsy to confirm or refute this is a malignancy versus a radial scar. This guy s been scheduled for 05/27/14 at 10:50am. Preliminary report E-mailed to Dr. Tiarra Stiles on 05/24/14. NARRATIVE: CLINICAL INDICATION: Question of a mass and possible architectural distortion in the outer Right breast noted on recen t interpretation of outside mammograms. TECHNIQUE: ML, spot CC and spot MLO 3D v iews obtained with direct digital capture followed by an ultrasound of the Right breast. FINDINGS: In the lateral aspect of the R ight breast is a 2.7cm spiculated mass with distortion. The remainder of the br east is normal. Targeted ultrasound at the 0830 position , 9cm from the nipple demonstrates a 15mm hypoechoic mass, taller than wide w ith irregular and spiculated margins, decreased through transmission and immed iately adjacent cysts. Antonella Bostno MD IMG MAMMO ORDERABLES documented in this encounter Visit Diagnoses Diagnosis Other (abnormal) findings on radiologica l examination of breast - Primary Other (abnormal) findings on radiologica l examination of breast Other (abnormal) findings on radiologica l examination of breast documented in this encounter Care Teams Flying Shear Operator Relationship Specialty Start Date End Date Juma Herrera MD PCP - General 05/21/[address] [place] [address] [address] [place] [address] documented as of this encounter
--- OUTSIDE RECORDS SUMMARY | 2022-06-15 07:49 | XMS_ITS | Encounter Summary ---
:1975 Author Organization [facility] [place] [address] Care Team Providers Name Role Phone Juma Herrera MD Primary Care Provider Encounter Details Date Type Department Care Team Description 11/29/2016 Hospital Encounter Radiology Library [facility] [place] [address] [place] [address] DIAGNOSTIC RADIOLOGY [phone] [place], [place] [address] (Wo rk) Social History Tobacco [...] Associated Diagnosis Comme nts FILM LIBRARY Routine 11/29/2016 12:00 AM Pain Results for this STORAGE ONLY CT EDT procedure ar e in PELVIS the results section. documented in this encounter Results Film Library- Storage Only CT Pelvis (11/29/2016 12:00 AM EDT) Specimen (Source) Anatomical Location Collection Method / Collectio n Time Received Time / Laterality Volume Narrative RAD - 11/30/2016 2:30 PM EDT This exam is for storage only and is aut o-finalizing. French Graff MD IMG FILM LIBRARY ORDERABLES Performing Organization Address City/State/ZIP Code Phon e Number [place], [place] documented in this encounter Visit Diagnoses Diagnosis Pain Generalized pain documented in this encounter Care Teams Analysis Reporting Developer Relationship Specialty Start Date End Date Juma Herrera MD PCP - General 05/21/[address] [place] [address] documented as of this encounter
--- OUTSIDE RECORDS SUMMARY | 2022-06-15 07:49 | XMS_ITS | Encounter Summary ---
:1975 Author Organization [facility] Address [facility] [place] [address] Care Team Providers Name Role Phone Juma Herrera MD Primary Care Provider Encounter Details Date Type Department Care Team Description 05/24/2014 Hospital Encounter Mammography at [facility] Other (abnormal) [facility] [place] [address] examination of breast [phone] Social History Tobacco Use Types Packs/Day Years [...] Priority Date/Time Associated Diagnosis Comme nts MAMMO BREAST US Routine 05/24/2014 9:40 AM Other (abnormal) Re sults for this LIMITED EDT findings on procedure are i n radiological the results examination of breast sectio n. documented in this encounter Results Mammo direct [...] procedure without a resi dent. Cell phone: [phone] [facility] 06/08/2014 10:16 AM EDT VACUUM ASSISTED ULTRASOUND [...] procedure without a resi dent. Cell phone: [phone] Monica Ann MD IMG MAMMO ORDERABLES Mammo breast US unilateral bilateral (05/24/2014 9:40 [...] cysts. Antonella Boston MD IMG MAMMO ORDERABLES documented in this encounter Visit Diagnoses Diagnosis Other (abnormal) findings on radiologica l examination of breast Other (abnormal) findings on radiologica l examination of breast documented in this encounter Care Teams Production Controller Relationship Specialty Start Date End Date Juma Herrera MD PCP - General 05/21/[address] [place] [address] [address] [place] [address] documented as of this encounter
--- OUTSIDE RECORDS SUMMARY | 2022-06-15 07:49 | XMS_ITS | Encounter Summary ---
:1975 Author Organization [facility] [place] [address] Care Team Providers Name Role Phone Juma Herrera MD Primary Care Provider Encounter Details Date Type Department Care Team Description 06/02/2014 Office Visit Same Day at [facility] [place] [address] Anesthesia Record Procedure Summary Procedure Name Responsible Anesthesia Start Anesthesia Stop Time Anesthesiologist Time EXCISION LESION, Teri Dsouza MD 06/10/14 1117 06/10/14 1 213 BREAST W/ PREOP.MARKER (NEEDLE LOC.) (WRVU 6.69) (Right Breast) Events Date Time Event Comment 06/10/2014 0854 1117 Start 1119 AN Verify 1124 An Start Data 1125 Anesthesia Ready 1136 Quick Note Tolerated local, no reaction to stimulus 1138 Skin Incision 1209 an stop data 1213 Stop 1213 Handoff The patient's ch art was reviewed. The current anestetic course as well as the anesthetic plans were also review ed. No medications on file. Agents No agents on file. Blood No blood administrations on file. Lines, Drains, and Airways Type Details Placement Removal Incision 06/10/14; breast; 06/10/14 0000 by 04/30/22 1715 by Quevedo 04/30/22 (LDA cleanup Evie Mendoza utility RA#[id number]); 1715 (LDA cleanup utility RA#[id number]) PIV cephalic vein left 06/10/14 1133 by 06/10/14 124 7 by Rai, (lateral side of arm); 20 Hilda Olvera RN gauge; 06/10/14; 1247 documented in this encounter Social History Tobacco Use Types Packs/Day Years Used Date Former Smoker Sex Assigned at Date Recorded Not on file documented as of this encounter Plan of Treatment Not on filedocumented as of this encounter Visit Diagnoses Not on filedocumented in this encounter Care Teams Electrician Machine Shop Relationship Specialty Start Date End Date Juma Herrera MD PCP - General 05/21/[address] [place] [address] documented as of this encounter
[2022-06-15 07:50] VITALS: BP 122/60; PULSE 90; RESP 18; TEMP 36.9; O2SAT 99
--- OUTSIDE RECORDS SUMMARY | 2022-06-15 07:50 | XMS_ITS | Encounter Summary ---
:[address] [facility] Address [address] [place] [address] Care Team Providers Name Role Phone Juma Herrera MD Unavailable Unavailable Shonda Sánchez NP Primary Care Provider Reason for Visit Reason Onset Date Comments Appointment Related 01/08/2022 Encounter Details Date Type Department Care Team Description 01/08/2022 Telephone [facility] Catalino Garrett MD Appointment Related [address] Interventional Pain [address] [place] [address] [place] [address] [phone] Social History Tobacco Use Types Packs/Day Years Used Date Current Every Day Smoker Jeremie t: 01/13/2009 Smokeless Tobacco: Never Used Comments: Vapes nicotine Alcohol Use Standard Drinks/Week Comments Yes 0 (1 standard drink = 0.6 oz pure alcoho l) very rarely Alcohol Habits Answer Date Recorded How often do you have a drink containing alcohol? Not asked How many drinks containing alcohol do you have on a typical Not asked day when you are drinking? How often do you have six or more drinks on one occasion? No t asked Comment: very rarely 06/29/2011 Sex Assigned at Date Recorded Not on file documented as of this encounter Functional Status Functional Status Response Date of Assessment Are you deaf or do you have serious difficulty hearing? No 09/05/2015 Are you blind or do you have serious difficulty seeing, No 09/05/2015 even when wearing glasses? Do you have serious difficulty walking or climbing No 09/05/2015 stairs? (5 years old or older) Do you have difficulty dressing or bathing? (5 years old No 09/05/2015 or older) Because of a physical, mental, or emotional condition, Yes 09/15/2018 does this person have difficulty doing errands alone such as visiting a doctor's office or shopping? Cognitive Status Response Date of Assessment Because of a physical, mental, or emotional condition, Yes 09/15/2018 does this person have serious difficulty concentrating, remembering, or making decisions? documented as of this encounter Miscellaneous Notes Telephone Encounter - Jalyn Gibbons - 01/08/2022 6694 EDT Spoke with patient: Appointment for 01/09/[address] Garrett has to be canceled by the office as provider has a family emergency and is unable to be in clinic. New appointment date has not been made at this time documented in this encounter Plan of Treatment Upcoming Encounters Date Type Specialty Care Team Description 06/25/2022 Telemedicine Neurology Kj Gloria MD PhD 1 [facility] [address] [place], [place] [address] (Wo rk) 09/06/2022 Procedure visit Pain Medicine Catalino Garrett M D [address] [facility] [address] [place] [address] (Wo rk) 09/21/2022 Office Visit Bariatrics Allen Thompson, ZHOUC 111 [facility], [address] [place], [place] [address] (Wo rk) documented as of this encounter Visit Diagnoses Not on filedocumented in this encounter Care Teams Nanny Babysitter Relationship Specialty Start Date End Date Shonda Sánchez NP PCP - General 03/14/21 01/31/[address] [place] [phone] Juma Herrera MD 12/08/18 [address] [place] [address] documented as of this encounter
--- OUTSIDE RECORDS SUMMARY | 2022-06-15 07:50 | XMS_ITS | Encounter Summary ---
:1975 Author Organization [facility] Address [address] [place] [address] Care Team Providers Name Role Phone Juma Herrera MD Unavailable Unavailable Shonda Sánchez NP Primary Care Provider Encounter Details Date Type Department Care Team Description 01/17/2022 Ambulatory Pharmacy [facility] Kelechi Panda , Ambulatory Pharmacy - [facility] Main [place] [address] [place] [address] Social History Tobacco Use Types Packs/Day Years [...] making decisions? documented as of this encounter Plan of Treatment Upcoming Encounters Date Type Specialty Care Team Description 06/25/2022 Telemedicine Neurology Kj Gloria MD PhD 1 [facility], [address] [place], [place] [phone] (Wo rk) 09/06/2022 Procedure visit Pain Medicine Catalino Garrett M D 62 [facility] [address] [place] [address] (Wo rk) 09/21/2022 Office Visit Bariatrics Allen Thompson, PALizettC 111 [facility], [address] [place], [place] [address] (Wo rk) documented as of this encounter Visit Diagnoses Not on filedocumented in this encounter Care Teams Cotton Expert Relationship Specialty Start Date End Date Shonda Sánchez NP PCP - General 03/14/21 01/31/[address] [place] [phone] Juma Herrera MD 12/08/18 [address] [place] [address] documented as of this encounter
--- OUTSIDE RECORDS SUMMARY | 2022-06-15 07:50 | XMS_ITS | Encounter Summary ---
:1975 Author Organization [facility] Address [address] [place] [address] Care Team Providers Name Role Phone Juma Herrera MD Unavailable Unavailable [facility], Primary Care Provider [phone] Reason for Visit Reason Onset Date Comments Appointment Related 02/28/2022 Encounter Details Date Type Department Care Team Description 02/28/2022 Telephone [facility] Jun Balbuena, Ziggy ppointment Related Sports Medicine Program MD Lizett Butterfield [address] [facility] [place], [place] [phone] (Wo rk) Social History Tobacco Use Types [...] this encounter Miscellaneous Notes Telephone Encounter - Jun Balbuena MD - 02/28/2022 1640 EDT Hi, Can't do all 3. SC joint on one day. SA and AC on another. Thanks. Jun Balbuena M.D. 02/28/2022 16:41 documented in this encounter Plan of Treatment Upcoming Encounters Date Type Specialty Care Team Description 06/25/2022 Telemedicine Neurology Kj Gloria MD PhD 1 [facility] [address] [place], [place] [address] (Wo rk) 09/06/2022 Procedure visit Pain Medicine Catalino Garrett M D 62 [facility] [address] [place] [address] (Wo rk) 09/21/2022 Office Visit Bariatrics Allen Thompson, PALizettC 111 [facility] [address] [place], [place] [address] (Wo rk) documented as of this encounter Visit Diagnoses Not on filedocumented in this encounter Care Teams Raw Products Director Relationship Specialty Start Date End Date [facility], Mp PCP - General 02/01/22 [address] [place] [address] Juma Herrera MD 12/08/18 [address] [place] [address] documented as of this encounter
--- OUTSIDE RECORDS SUMMARY | 2022-06-15 07:50 | XMS_ITS | Encounter Summary ---
:1975 Author Organization [facility] Address [address] [place] [address] Care Team Providers Name Role Phone Juma Herrera MD Unavailable Unavailable [facility], Primary Care Provider [phone] Encounter Details Date Type Department Care Team Description 06/06/2022 Ambulatory Pharmacy [facility] Yuri Montgomery , Ambulatory Pharmacy - [facility] Main [place] [address] [place], [place] [phone] Social History Tobacco Use Types Packs/Day Years [...] making decisions? documented as of this encounter Progress Notes Tesha Blanca - 06/06/2022 1545 EDT [facility] Specialty Pharmacy Delivery Information Hours: Saturday-Saturday 8:30am - 5:00pm *Pharmacist available director of strategic communications 25/03 Delivery Service: [employer] Delivery Window: None Specified Date of Delivery: 06/14/22 Tracking # : [id number] documented in this encounter Plan of Treatment Upcoming Encounters Date Type Specialty Care Team Description 06/25/2022 Telemedicine Neurology Kj Gloria MD PhD 1 [facility] 2 [place], [place] [address] (Wo rk) 09/06/2022 Procedure visit Pain Medicine Catalino Garrett M D 62 [facility] [address] [place] [address] (Wo rk) 09/21/2022 Office Visit Bariatrics Allen Thompson PA-C 111 [facility], [address] [place], [place] [address] (Wo rk) documented as of this encounter Visit Diagnoses Not on filedocumented in this encounter Care Teams Distillery Worker Relationship Specialty Start Date End Date [facility], Mp PCP - General 02/01/22 [address] [place] [address] Juma Herrera MD 12/08/18 [address] [place] [address] documented as of this encounter
--- OUTSIDE RECORDS SUMMARY | 2022-06-15 07:50 | XMS_ITS | Encounter Summary ---
:1975 Author Organization [facility] Address [address] [place] [address] Care Team Providers Name Role Phone Juma Herrera MD Unavailable Unavailable Shonda Sánchez NP Primary Care Provider Reason for Visit Reason Onset Date Comments Medications Refill 12/20/2021 Encounter Details Date Type Department Care Team Description 12/20/2021 Refill [facility] Kj Gloria MD Medications Refill Neurology - S Prospe ct PhD [address] [address] [place], [facility] [place] [phone] (Wo rk) Social History Tobacco Use Types [...] making decisions? documented as of this encounter Ordered Prescriptions Prescription Sig Dispensed Refills Start Date End Date erenumab-aooe (AIMOVIG Inject 1 mL into the 3 mL 3 AUTOINJECTOR) 140 mg/mL skin every 28 days. auto-injector documented in this encounter Miscellaneous Notes Telephone Encounter - Kizzy Childers - 12/20/2021 1007 EDT Medication Request Medication: Aimovig Medication refill: yes Medication dose change: increased 140mg Refill due: 12/20/21 [facility] Next [facility]t: Visit date not found documented in this encounter Plan of Treatment Upcoming Encounters Date Type Specialty Care Team Description 06/25/2022 Telemedicine Neurology Kj Gloria MD PhD 1 [facility] 2 [place], [place] [phone] (Jayjay anaya) 09/06/2022 Procedure visit Pain Medicine Catalino Garrett M D [address] [place] [address] [address] [place] [address] (Wo héctor) 09/21/2022 Office Visit Bariatrics Allen Thompson PA-C 111 [facility], [address] [place], [place] [address] (Jayjay anaya) documented as of this encounter Visit Diagnoses Not on filedocumented in this encounter Discontinued Medications Medication Sig Discontinue Reason Start Date End Date erenumab-aooe (AIMOVIG Inject 70 mg into 03/06/2021 12/20/2021 AUTOINJECTOR) 70 mg/mL the skin every 28 auto-injector days. documented as of this encounter Care Teams Charger Operator Relationship Specialty Start Date End Date Shonda Sánchez, GIULIA PCP - General 03/14/21 01/31/[address] [place] [phone] Juma Herrera MD 12/08/[address] [place] [address] documented as of this encounter
--- OUTSIDE RECORDS SUMMARY | 2022-06-15 07:50 | XMS_ITS | Encounter Summary ---
:1975 Author Organization [facility] Address [address] [place] [address] Care Team Providers Name Role Phone Juma Herrera MD Unavailable Unavailable [facility], Primary Care Provider [phone] Encounter Details Date Type Department Care Team Description 03/14/2022 Ambulatory Pharmacy [facility] Kelechi Panda , Ambulatory Pharmacy - [facility] [place] [address] [place], [place] [id number] Social History Tobacco Use Types Packs/Day Years [...] Telemedicine Neurology Kj Gloria MD PhD 1 [facility] Level 2 [place], [place] [phone] (Wo rk) 09/06/2022 Procedure visit Pain Medicine Catalino Garrett M D 62 [facility] [address] [place] [address] (Wo rk) 09/21/2022 Office Visit Bariatrics Allen Thompson, PALizettC 111 [facility], [facility], Level 5 [place], [place] [address] (Wo rk) documented as of this encounter Visit Diagnoses Not on filedocumented in this encounter Care Teams Bilingual Medical Assistant Relationship Specialty Start Date End Date [facility], Mp PCP - General 02/01/22 [address] [place] [address] Juma Herrera MD 12/08/18 [address] [place] [address] documented as of this encounter
--- OUTSIDE RECORDS SUMMARY | 2022-06-15 07:50 | XMS_ITS | Encounter Summary ---
:1975 Author Organization [facility] Address [address] [place] [address] Care Team Providers Name Role Phone Juma Herrera MD Unavailable Unavailable [facility], Primary Care Provider Reason for Visit Reason Comments Neck Pain bilateral neck pain radiatin g down right arm Prior Authorization (Routine) - Specialty Report Received Specialty Diagnoses / Procedures Referred By Contact Refer red To Contact Pain Medicine Diagnoses Other cervical disc degeneration, unspecified cervical region Sacroiliitis, not elsewhere classified ([facility]) repeat cervical epidural steroid injection at C6C7 [facility] Catalino Garrett MD Procedures NH NJX DX/THER SBST INTRLMNR CRV/THRC W/IMG GDN PROCEDURE MEDIUM [address] [place] [address] [address] [place] [address] Phone: Fax: Referral ID Status Reason Start Date Expiration Date Visits V isits Requested Authorized [id number] Specialty 1 1 Report Received Encounter Details Date Type Department Care Team Description 05/17/2022 Procedure visit [facility] - Catalino Garrett Ra diculopathy, [facility] cervical region [facility] 62 [facility] (Primary Dx) Interventional Pain [address] [place], [place] [address] [place], [place] [phone] [address] Social History Tobacco Use Types Packs/Day Years [...] Sign Reading Time Taken Comments Blood Pressure 125/92 05/17/2022926 EDT Pulse 83 05/17/2022926 EDT Temperature 35.5 ??C (95.9 ??F) 05/17/2022825 EDT Respiratory Rate 18 05/17/2022926 EDT Oxygen Saturation 100% 05/17/2022825 EDT Inhaled Oxygen Concentration - - Weight - - Height - - Body Mass Index - - documented in this encounter Functional Status Functional Status Response [...] making decisions? documented as of this encounter Patient Instructions Patient InstructionsShantelle Piedra RN - 05/17/2022 8:45 EDT [facility] [address] [address] Patient Instructions You have had your cervical Epidural Steroid Injection. The purpose of this procedure has been to place medication which may help relieve your pain. Steroid may be used to decrease the swelling and nerve irritation which may be causing your pain. The following information should help you over the next few days regarding what you may expect. ??? Please take it easy for the rest of today. ??? DO NOT drive a car for the remainder of the day. ??? If you feel sore where the needle(s) entered for the block or develop a flare-up of pain over the next few days, please use ice on the area. You may leave the ice on for up to 20 minutes at a time.Do not use heat, as this may cause swelling. ??? As long as your primary doctor has indicated no restrictions, you may take a mild pain medicine,such as acetaminophen (Tylenol), ibuprofen (Advil, Nuprin, Motrin IB, etc.) or aspirin, if needed. ??? The steroid injection usually takes a few days to become effective. On average, you may notice some relief in 3 -5 days. However, it may take up to 10 ??? 14 days to know whether the injection was helpful. ??? If the block causes numbness/weakness, it should wear off within a few hours. ??? If the area that the needle(s) were inserted becomes hot, red, swollen, or increasingly tender, or if you develop a fever (100.5 or greater) or chills along with these symptoms, please call our office immediately. ??? If you develop increasingly severe neck pain or continued numbness or weakness of the arms, please call our office immediately. Instructions for follow-up If you have any questions about your block, please call Patient Education Topic: Method: Handout and Verbal Taught to: Patient Barriers: None Outcomes: independent and verbalized understanding SHANTELLE PIEDRA RN documented in this encounter Progress Notes Catalino Garrett MD - 05/17/2022 0845 EDT Patient Name: Tia Rooney : 1975 Date of Service: 05/17/2022 Animal Herder: Gerry MEHTA Inspector Structural Bonding: none Procedure: Therapeutic cervical epidural steroid injections at C6C7 Interval History: Patient currently denies any progressive weakness, unexplained fever, trauma or unexplained weight loss. The patient reports no recent changes in the character, quality, or distribution of the pain. There are no recent onset of new associated symptoms such as changes in strength, sensation, or bladdercontrol. All previous medical records including current medications, anticoagulation status, any signs of current infection, and new imaging were reviewed. See my note from 06/22 for pt's course w/u functional limitiations Injection History: 05/17/2022: cervical epidural steroid injection at C6C7 02/01/22: cervical epidural steroid injection at C6C7 - 3 months of 80% improvement of Posterior neck pain and R cervicothoracic junction 12/2021: R subacromial inj and R AC inj w/ Dr. Balbuena - 80% improvement in 05/17/2021: sacroiliac joint injection bilateral - 80% improvement x4 weeks, now at 50% improvement 04/05/2021: cervical epidural steroid injection at C6C7??- 80% improvement in posterior neck pain and post arm pain. But still had anterior shoulder, neck clavicular pain 03/20/2021: intra-articularR knee joint injection w monovisc - 80% improvement with walking up stairsand improving mobility continued as of 02/01/22 01/12/2021: sacroiliac joint injection bilateral - not sure if it offered any improvement 12/19/20: f/u discuss R knee pain 11/17/20: C6C7 YSABEL - 80% improvement for 2 months 11/06/19: b/l SIJ inj 90% improvement in LBP x3 months 07/27/19: b/l SI Joint inj - 90% improvement in LBP x 3 months 01/28/19: ??C6C7 CUAUHTEMOC - 80% for 9 months 09/15/18: C6C7 CUAUHTEMOC - 80% relief for 3 months?hx of multiple b/l SIJ injections going back to 2013 L5-S1 decompression and fusion (2006) Allergies: Allergies Allergen Reactions ??? Adhesive Other (See Comments) Skin irritation, paper tape ok ??? Bee Sting [Hymenoptera Allergenic Extract] Swelling Fever and vomiting ??? Codeine Hives and Nausea And Vomiting ??? Other - See Comments Nausea And Vomiting Root beer Review of Systems: Negative for any fever, chills, nausea/vomiting, headaches, chest pain, palpitations, shortness of breath, bladder/bowel incontinence. No easy bruising, bleeding, anti-coagulation or known recent infections. Physical Exam: Vitals: BP (!) 145/76 (BP Cuff Location: Left arm, BP Patient Position: Sitting, BP Cuff Sizes: Adult, long) Pulse 86 Temp (!) 35.5 ??C (95.9 ??F) (Tympanic) Resp 16 General: Patient is alert and oriented, no acute distress Lungs: symmetric chest rise, no evidence of labored breathing Skin: clear, warm, dry and intact and no rashes, bruises or petechiae noted Musculoskeletal: Gait: patient ambulates independently, steady gait no obvious scoliosis or abnormal curvature of the spine Cervical Spine: tenderness elicited upon palpation, pain elicited upon facet loading Upper Extremity: strength 5/5, sensory bilaterally equal to light touch Assessment: 1. Radiculopathy, cervical region Plan: Ms. Tia Rooney is a 46 y.o. female that presents to the pain clinic to undergo cervical epiduralsteroid injections in regards to her chronic neck pain. All risks, benefits, and alternatives were thoroughly explained to Ms. Tia Rooney who verbally communicated understanding of the management plan. Proceed with therapeutic YSABEL C6C7 Follow up: Will repeat in about 3-4 months. In the past, results have been longer and better if she was treatedmore regularly. She will call if knee pain worsens Also getting shoulder inj by Dr. Balbuena, discussed risk of overly frequent steroid injections. PROCEDURE: The patient gave informed written consent to proceed with this procedure following a detailed discussion of the risks and benefits associated with cervical epidural steroid injection including but not limited to infection, bleeding, headache, intrathecal injection, allergic reaction, further exacerbati on of current symptoms, neurological injury, and lack of efficacy.. The patient was then placed in the prone position, the skin over the cervical and thoracic areas was prepped with chlorhexadine, and the site was marked and draped with sterile towels. Strict sterile technique was maintained throughout the procedure. A timeout was performed with full staff present to identify the patient, verify the procedure being performed, and review allergies. Fluoroscopy was used to identify the C6-C7 disc space. The skin and subcutaneous tissue over this level was anesthetized by injection of 2% lidocaine. An 18 guage touhy needle was inserted under fluoroscopic guidance by coaxial technique and advanced towards the interspace. Loss of resistance with normal saline was used to find the epidural space. One pass was required and there was no paresthesia. Contrast dye was injected under live fluoroscopy demonstrating a typical epidural pattern with no evidence of intravascular or intrathecal injection. After negative aspiration, 10 mg Dexamethasone and 2 ml Normal Saline were injected. The needle was then flushed and withdrawn. The patient tolerated the procedure well, there were no apparent complications, and she was discharged in stable condition. Written and verbal discharge instructions were reviewed with the patient prior to discharge. Gerry MEHTA Shantelle Piedra RN - 05/17/2022 0845 EDT [facility] Rooming Note Does patient have a Timber Sizer Operator? yes Is patient NPO? (Solids since midnight & liquids for 4 hrs) yes Blood Thinners: Is patient on Blood Thinners? no If yes, taking? If stopped, who authorized stopping? Related comments: Infections: Any recent infections, fever of illnesses? no If on antibiotics, is it 7-10 days past the date of completion of antibiotics? : (for females of child-bearing age) no Is there a chance current ? Do you have any type of implanted device? SCS lower back-not in use Other: ATTENTION: An active Time-Out initiated by the Provider requires that all members of the procedural support team are present and must stop activity until the Time-Out is completed. The Nurse will have in their possession the signed consent to compare to the verbal verification of the items below: [Verified] Patient identifier #1: Full Name [Verified] Patient Identifier #2: Date of [Verified] No allergy to sterile prep products, steroids, local anesthetics, band-aids, or contrast dye [Verified] Full team and patient verification of location of pain and procedure to be performed [Verified] Site marked (Region and/or Laterality) [Verified] Presence of Implantable Devices [Verified] Safety devices are in place (Grounding pad, X-rays available, and/or Magnet) [Verified] Consent signed and matches planned procedure and site marking [Verified] Active verbal communication by the entire procedural team was completed. documented in this encounter Plan of Treatment Upcoming Encounters Date Type Specialty Care Team Description 06/25/2022 Telemedicine Neurology Kj Gloria MD PhD 1 [facility], Level 2 [place], [place] [address] (Wo rk) 09/06/2022 Procedure visit Pain Medicine Catalino Garrett M D 62 [facility] [address] [place] [address] (Wo rk) 09/21/2022 Office Visit Bariatrics Allen Thompson PA-C 111 [facility], [facility], [address] [place], [place] [address] (Wo rk) documented as of this encounter Visit Diagnoses Diagnosis Radiculopathy, cervical region - Primary Brachial neuritis or radiculitis nos documented in this encounter Administered Medications Inactive Administered Medications - up to 3 most recent administrations Medication Order MAR Action Action Date Dose Rate Site dexAMETHasone (DECADRON) injection Given by Other 05/17/2022 9:22 EDT 10 mg 10 mg 10 mg, neural-axial, NOW X1, 1 dose, On Karen 05/17/22 at 0945, Routine Iohexol (OMNIPAQUE 180) injection 10 mL Given by Other 05/17/2022 9:22 EDT 10 mL 10 mL, neural-axial, NOW X1, 1 dose, On Karen 05/17/22 at 0945, Routine documented in this encounter Discontinued Medications Medication Sig Discontinue Reason Start Date End Date diphenhydrAMINE-acetami Take 1 Tablet by Patient Stopped Taking 05/17/2022 nophen 25-500 mg tablet mouth at bedtime as needed. LORazepam (ATIVAN) 0.5 Take 0.5 mg by Discontinued by 05/17/2022 mg tablet mouth at bedtime. another clinician oxyCODONE (ROXICODONE) Take 2 Tabs by Therapy completed 09/07/2015 05/17/2022 5 mg immediate release mouth every 4 tablet hours Hold for now while taking liquid form Daily Max: 60 mg pediatric multivitamin Take 1 Tab by Alternate therapy 09/07/2015 05/17/2022 (JUAN CHEW VIT) mouth daily Hold chewable tablet for 2 weeks potassium chloride Take 20 mEq by Therapy completed (KLOR-CON) 20 mEq mouth daily. packet rizatriptan (MAXALT) 10 Take 1 Tablet by Therapy completed 12/19/1905/17/2022 mg tablet mouth as needed for Migraine. May repeat in 2 hours if needed. Not to exceed to 8 days per month documented as of this encounter Care Teams Personal Attendant Relationship Specialty Start Date End Date [facility], Mp PCP - General 02/01/22 [address] [place] [address] Juma Herrera MD 12/08/18 [address] [place] [address] documented as of this encounter
--- OUTSIDE RECORDS SUMMARY | 2022-06-15 07:50 | XMS_ITS | Encounter Summary ---
:1975 Author Organization Address [address] [place] [address] Care Team Providers Name Role Phone Juma Herrera MD Unavailable Unavailable Shonad Sánchez NP Primary Care Provider Reason for Visit Reason Onset Date Comments Appointment Related 12/20/2021 Encounter Details Date Type Department Care Team Description 12/20/2021 Telephone [facility] Kj Gloria MD Appointment Related Neurology - S [address] PhD [address] [phone] [facility] [address] [place] [phone] (Wo rk) Social History Tobacco Use Types [...] this encounter Miscellaneous Notes Telephone Encounter - Karis Acevedo RN - 12/20/2021 1146 EDT Per 12/18/21 summary: Assessment and Plan: ?? Chronic migraine. Increase dose of Aimovig to 140mg Q 28 days. ?? Prescription sent for rizatriptan 10mg tabs, take 1 tab as needed at the start of severe headache, can repeat 1 dose after 2 hours if needed, do not take more than 8 tabs/month. Consideration can be made for subcutaneous sumatriptan again in the future if needed, but oral medications may be more effective since starting Aimovig as baseline headache severity has decreased significantly. rx for rizatriptan sent to [facility] on 12/18/21. Closing encounter elephone Encounter - Sena Stern - 12/20/2021 1027 EDT Spoke with the patient. Sena scheduled televideo w/Dr. Gloria for 06/25/2022 @ 11 am. Need zoom invite. Email address confirmed. documented in this encounter Plan of Treatment Upcoming Encounters Date Type Specialty Care Team Description 06/25/2022 Telemedicine Neurology Kj Gloria MD PhD 1 [facility] 2 [place], [place] [phone] (Wo rk) 09/06/2022 Procedure visit Pain Medicine Catalino Garrett M D 62 [facility] [address] [place] [address] (Wo rk) 09/21/2022 Office Visit Bariatrics Allen Thompson PA-C 111 [facility], [facility], Level 5 [place], [place] [address] (Wo rk) documented as of this encounter Visit Diagnoses Not on filedocumented in this encounter Care Teams Chief Design Drafter Relationship Specialty Start Date End Date Shonda Sánchez NP PCP - General 03/14/21 01/31/[address] [place] [address] Juma Herrera MD 12/08/18 [address] [place] [address] documented as of this encounter
--- OUTSIDE RECORDS SUMMARY | 2022-06-15 07:50 | XMS_ITS | Encounter Summary ---
:1975 Author Organization [facility] Address [address] [place] [address] Care Team Providers Name Role Phone Juma Herrera MD Unavailable Unavailable [facility], Primary Care Provider [phone] Reason for Referral Prior Authorization (See Order Priority) - Authorization Not Required Specialty Diagnoses / Procedures Referred By Contact Refer red To Contact Orthopedic Surgery Diagnoses Chronic right shoulder pain Jun Balbuena Tilley [employer] MD [address] [facility] [place] [phone] Referral ID Status Reason Start Expiration Visits Visits Date Date Requested Authorized [id number] Authorization Specialty 1 1 Not Required Services 2 Required Question Answer Reason for Request: RIGHT SHOULDER USG SA AND/OR SC INJECTION Comments The purpose of this request is to inform precertification staff that the requested service needs to be reviewed for prior-a uthorization. Encounter Details Date Type Department Care Team Description 04/25/2022 Orders Only [facility] Jun Balbuena r ight shoulder Sports Medicine MD Isidro pain (Primary Dx) Program - Scout [address] [place], [place] [address]ey [facility] [address] [facility] [phone] Social History Tobacco Use Types Packs/Day Years [...] Telemedicine Neurology Kj Gloria MD PhD 1 [facility] 2 [place], [place] [address] (Jayjay anaya) 09/06/2022 Procedure visit Pain Medicine Catalino Garrett M D 62 [facility] [address] [place] [address] (Jayjay anaya) 09/21/2022 Office Visit Bariatrics Allen Thompson PA-C 111 [facility] venue [facility], [facility], Level [address] [place], [place] [address] (Jayjay anaya) Scheduled Referrals Name Type Priority Associated Order Schedule Diagnoses AMB CONS/FOLLOW UP Outpatient Routine/Next Chronic right Expected : IN CLINIC PROCEDURES Referral Available shoulder pain 2021 PRIOR AUTHORIZATION (Approxi jose guadalupe), REQUEST Expires: 04/25/2023 documented as of this encounter Visit Diagnoses Diagnosis Chronic right shoulder pain - Primary Pain in joint, shoulder region documented in this encounter Care Teams Scoop Operator Relationship Specialty Start Date End Date [facility], Mp PCP - General 02/01/22 [address] [place] [address] Juma Herrera MD 12/08/18 [address] [place] [address] documented as of this encounter
--- OUTSIDE RECORDS SUMMARY | 2022-06-15 07:50 | XMS_ITS | Encounter Summary ---
:1975 Author Organization [facility] Address [address] [place] [address] Care Team Providers Name Role Phone Juma Herrera MD Unavailable Unavailable Shonda Sánchez SUPERVISOR PURIFICATION Primary Care Provider Reason for Visit Reason Onset Date Comments Prior Auth, Medication 12/20/2021 Aimovig 140 mg in ject 1 ml sq q 28 days. Dose increase. Encounter Details Date Type Department Care Team Description 12/20/2021 Telephone [facility] Kj Gloria Pri or Kita, Medication Adult Neurology - Daniel MEHTA PhD (Aimovig 140 mg inject [address] 1 ml sq q 28 days. 111 [facility] Dose increase.) [place] [address] [place] [phone] (Wo rk) Social History Tobacco Use Types [...] this encounter Miscellaneous Notes Telephone Encounter - MarandaGraciaLoretta - 12/20/2021 1053 EDT Prior Authorization Approval Medication: Aimovig 140 mg inject 1 ml subcutaneous q 28 days. Insurance Name: [employer] Insurance Type: Commercial Approval Dates: 09/02/2021-12/20/2022 Authorization Number: Benefits Information: [facility] able to fill? : YES Required Pharmacy: Additional Info/Other Notes: patient is already enrolled in our SPRX services. Prior Authorization Submission Process - Routine Medication: Aimovig 140 mg inject 1 ml subcutaneous q 28 days. Insurance: [id number] Pat D Insurance Type: Medicare Part D Date PA Request Received: 12/20/2021 PA Submission Date: 12/20/2021 [facility] Srivastava: [id number] Notes: Submitted by: TRISTA Phone: [phone] documented in this encounter Plan of Treatment Upcoming Encounters Date Type Specialty Care Team Description 06/25/2022 Telemedicine Neurology Kj Gloria MD PhD 1 [facility], Level 2 [place], [place] [address] (Jayjay anaya) 09/06/2022 Procedure visit Pain Medicine Catalino Garrett M D 62 [facility] [address] [place] [address] (Jayjay anaya) 09/21/2022 Office Visit BariatricAllen Boyd PA-C [address] [facility], [facility], Level [address] [place], [place] [address] (Wo rk) documented as of this encounter Visit Diagnoses Not on filedocumented in this encounter Care Teams Supervisor Lens Generating Relationship Specialty Start Date End Date Shonda Sánchez NP PCP - General 03/14/21 01/31/[address] [place] [phone] Juma Herrera MD 12/08/18 [address] [place] [address] documented as of this encounter
--- OUTSIDE RECORDS SUMMARY | 2022-06-15 07:50 | XMS_ITS | Encounter Summary ---
:1975 Author Organization [facility] Address [address] [place] [address] Care Team Providers Name Role Phone Juma Herrera MD Unavailable Unavailable Shonda Sánchez NP Primary Care Provider Reason for Visit Reason Onset Date Comments Migraine 01/03/2022 Encounter Details Date Type Department Care Team Description 01/03/2022 Telephone [facility] Josiah Gloria MD PhD Migraine Neurology - [facility] [address], [address] 2 [place], [place] [phone] [place] [phone] (Wo rk) Social History Tobacco Use Types [...] Telephone Encounter - Karis Acevedo RN - 01/22/2022 1342 EDT Nursing did reach out to patient back on 01/03. [facility] with detailed message that if still needs assistance to please give us a call. Closing this encounter elephone Encounter - Loretta Degroot - 01/03/2022 1019 EDT Tia was calling again this morning. She is hoping to get a call back in regards to her migraine. She doesn't think she will be able to wait much longer for a call back and may go to the ED. Please call as soon as possible. Thank you Telephone Encounter - Pamela Hunter - 01/03/2022 0819 EDT Tia is calling because she has had a migraine since Saturday. The pain has traveled down to her left eye and now her vision is blurry on that side. Now of the medication is working. Please call JENNY. documented in this encounter Plan of Treatment Upcoming Encounters Date Type Specialty Care Team Description 06/25/2022 Telemedicine Neurology Kj Gloria MD PhD 1 [facility], [facility] 2 [place], [place] [phone] (Wo rk) 09/06/2022 Procedure visit Pain Medicine Catalino Garrett M D [address] [place] [address] [address] [place] [address] (Wo rk) 09/21/2022 Office Visit Bariatrics Allen Thompson, ELISABETH [address] [facility], [facility], Level 5 [place], [place] [address] (Wo rk) documented as of this encounter Visit Diagnoses Not on filedocumented in this encounter Care Teams Stunner Relationship Specialty Start Date End Date Shonda Sánchez NP PCP - General 03/14/21 01/31/[address] [place] [address] Juma Herrera MD 12/08/18 [address] [place] [address] documented as of this encounter
--- OUTSIDE RECORDS SUMMARY | 2022-06-15 07:50 | XMS_ITS | Encounter Summary ---
:[address] [facility] Address [address] [place] [address] Care Team Providers Name Role Phone Juma Herrera MD Unavailable Unavailable [facility], [place] Primary Care Provider [phone] Encounter Details Date Type Department Care Team Description 05/17/2022 Hospital Encounter [facility] X ray [address] [place], [place] [id number] Social History Tobacco Use Types Packs/Day Years [...] making decisions? documented as of this encounter Medications at Time of Discharge Medication Sig Dispensed Refills Start Date End Date busPIRone (BUSPAR) 5 mg Take 30 mg by mouth 0 tablet 2 times daily. calcium carbonate/vitamin Take by mouth. 0 D3 (VITAMIN D-3 ORAL) cholecalciferol, Vitamin Take 4,000 Units by 0 D3, 25 mcg (1,000 unit) mouth daily. tablet cloNIDine HCL (CATAPRES) Take 0.1 mg by mouth 0 0.1 mg tablet 2 times daily. cortisone acetate Inject 1 Dose into 0 (CORTISONE IM) the muscle every 3 months. duloxetine (CYMBALTA) 30 Take 90 mg by mouth daily Ta ke with 60mg cap to =90mg dose 0 05/16/2011 mg capsule erenumab-aooe (AIMOVIG Inject 1 mL into the 3 mL 3 AUTOINJECTOR) 140 mg/mL skin every 28 days. auto-injector MAGNESIUM ORAL Take 500 mg by mouth 0 daily. MEDICAL MARIJUANA as needed. 0 methylphenidate (RITALIN Take by mouth 2 0 SR; METADATE ER; METHYLIN times daily. Takes ER) 20 mg SR tablet 20 mg every morning, 20 mg every afternoon, 10 mg every evening. methylphenidate Take 10 mg by mouth 0 (RITALIN;METHYLIN) 5 mg 2 times daily. tablet multivitamins (THERAGRAN) Take 5 mL by mouth 0 daily. nystatin (MYCOSTATIN) Apply to affected 30 g 1 022 powder area twice daily. Clean and thoroughly dry area before application. omeprazole (PRILOSEC) 40 Take 1 capsule by 90 capsule 3 09/03 mg capsule mouth daily. pregabalin (LYRICA) 50 mg Take 2 Caps by mouth 180 Cap 3 08/21/2012 capsule 3 times daily. prochlorperazine Take 1 Tab by mouth 60 Tab 0 08/31/2015 (COMPAZINE) 10 mg every 6 hours as tabletIndications: S/P needed for Nausea laparoscopic sleeve gastrectomy, Gastroesophageal reflux disease without esophagitis SUMAtriptan Succinate 6 Inject 6 mg into the 6 mL 11 mg/0.5 mL cartridge skin as needed (migraine). Take as directed. documented as of this encounter Discharge Disposition Disposition Code Departure Means Destination Home or Self Care documented in this encounter Plan of Treatment Upcoming Encounters Date Type Specialty Care Team Description 06/25/2022 Telemedicine Neurology Kj Gloria MD PhD 1 [facility], Level 2 [place], [place] [address] (Wo rk) 09/06/2022 Procedure visit Pain Medicine Catalino Garrett M D 62 [facility] [address] [place] [address] (Wo rk) 09/21/2022 Office Visit Bariatrics Allen Thompson PA-C 111 [facility], [facility], Level 5 [place], [place] [phone] (Wo rk) documented as of this encounter Procedures Procedure Name Priority Date/Time Associated Diagnosis Comme nts PAIN CLINIC [place] Routine 05/17/2022 9:26 EDT Result s for this CERVICAL INJECTION procedure are in the results section. documented in this encounter Results PAIN CLINIC FL CERVICAL INJECTION (05/17/2022 9:26 EDT) Specimen Narrative 05/17/2022 9:26 EDT This is a non-reportable exam. documented in this encounter Visit Diagnoses Not on filedocumented in this encounter Care Teams Contact Worker Relationship Specialty Start Date End Date [facility], [place] PCP - General 02/01/22 [address] [place] [address] Juma Herrera MD 12/08/18 [address] [place] [address] documented as of this encounter
--- OUTSIDE RECORDS SUMMARY | 2022-06-15 07:50 | XMS_ITS | Encounter Summary ---
:1975 Author Organization [facility] Address [address] [place] [address] Care Team Providers Name Role Phone Juma Herrera MD Unavailable Unavailable [facility], Primary Care Provider [phone] Reason for Visit Reason Onset Date Comments Appointment Related 04/30/2022 Encounter Details Date Type Department Care Team Description 04/30/2022 Telephone [facility] - Catalino Garrett MD Appointment Related [address] Interventional Pain [place] [address] [place] [address] [place], [place] 05 [facility] [phone] Social History Tobacco Use Types Packs/Day Years [...] this encounter Miscellaneous Notes Telephone Encounter - Sandi Alvarez MA - 04/30/2022 0929 EDT JULIAN attempted to contact patient as reminder about stopping her Multi Vit 7 days ahead of her procedure . LM to return call. documented in this encounter Plan of Treatment Upcoming Encounters Date Type Specialty Care Team Description 06/25/2022 Telemedicine Neurology Kj Gloria MD PhD 1 [facility] Level 2 [place], [place] [address] (Wo rk) 09/06/2022 Procedure visit Pain Medicine Catalino Garrett M D [address] [place] [address] [address] [place] [address] (Wo rk) 09/21/2022 Office Visit Bariatrics Allen Thompson PA-C 111 [facility], Level 5 [place], [place] [address] (Wo rk) documented as of this encounter Visit Diagnoses Not on filedocumented in this encounter Care Teams Digital Field Service Technician Relationship Specialty Start Date End Date [facility] [place], [place] PCP - General 02/01/22 [address] [place] [address] Juma Herrera MD 12/08/18 [address] [place] [address] documented as of this encounter
--- OUTSIDE RECORDS SUMMARY | 2022-06-15 07:50 | XMS_ITS | Encounter Summary ---
:1975 Author Organization [facility] Address [address] [place] [address] Care Team Providers Name Role Phone Juma Herrera MD Unavailable Unavailable Shonda Sánchez NP Primary Care Provider Reason for Visit Reason Onset Date Comments Appointment Related 01/23/2022 Encounter Details Date Type Department Care Team Description 01/23/2022 Telephone [facility] - Catalino Garrett MD Appointment Related [address] Interventional Pain [address] [place] [address] [place] [address] [phone] Social History Tobacco Use Types Packs/Day Years [...] Notes Telephone Encounter - Jalyn Gibbons - 01/25/2022 1709 EDT Made call out to patient and let her know that is was ok for her to do that injection per clinical elephone Encounter - Jalyn Gibbons - 01/23/2022 1153 EDT Spoke to patient and made appointment on 02/01/2022 for: Cervical CUAUHTEMOC. Patient had a question for clinical; on 01/26/22 she is scheduled to have a Aimovig (140mg) injection to treat her migraines, is that ok to have prior to injection? documented in this encounter Plan of Treatment Upcoming Encounters Date Type Specialty Care Team Description 06/25/2022 Telemedicine Neurology Kj Gloria MD PhD 1 [facility] 2 [place], [place] [address] (Jayjay anaya) 09/06/2022 Procedure visit Pain Medicine Catalino Garrett M D 62 [facility] [address] [place] [address] (Jayjay anaya) 09/21/2022 Office Visit Bariatrics Allen Thompson PA-C 111 [facility], [facility], Level [address] [place], [place] [address] (Jayjay anaya) documented as of this encounter Visit Diagnoses Not on filedocumented in this encounter Care Teams Cadmium Liquor Maker Relationship Specialty Start Date End Date Shonda Sánchez, CIGARETTE PACKING MACHINE OPERATOR PCP - General 03/14/21 01/31/[address] [place] [phone] Juma Herrera MD 12/08/18 [address] [place] [address] documented as of this encounter
--- OUTSIDE RECORDS SUMMARY | 2022-06-15 07:50 | XMS_ITS | Encounter Summary ---
:1975 Author Organization [facility] Address [address] [place] [address] Care Team Providers Name Role Phone Juma Herrera MD Unavailable Unavailable [facility], Primary Care Provider [phone] Encounter Details Date Type Department Care Team Description 02/13/2022 Ambulatory Pharmacy [facility] Kelechi Panda , Ambulatory Pharmacy - [facility] Main [place] [address] [place], [place] [phone] Social History Tobacco Use Types Packs/Day Years [...] Telemedicine Neurology Kj Gloria MD PhD 1 [facility] Level 2 [place], [place] [phone] (Wo rk) 09/06/2022 Procedure visit Pain Medicine Catailno Garrett M D 62 [facility] [address] [place] [address] (Wo rk) 09/21/2022 Office Visit Bariatrics Allen Thompson, PALizettC 111 [facility], [facility], Level 5 [place], [place] [address] (Wo rk) documented as of this encounter Visit Diagnoses Not on filedocumented in this encounter Care Teams Adult Parole Officer Relationship Specialty Start Date End Date [facility], [place] PCP - General 02/01/22 [address] [place] [address] Juma Herrera MD 12/08/18 [address] [place] [address] documented as of this encounter
--- OUTSIDE RECORDS SUMMARY | 2022-06-15 07:50 | XMS_ITS | Encounter Summary ---
:1975 Author Organization [facility] Address [address] [place] [address] Care Team Providers Name Role Phone Juma Herrera MD Unavailable Unavailable Shonda Sánchez NP Primary Care Provider [facility], [place]p Primary Care Provider [phone] Encounter Details Date Type Department Care Team Description 12/20/2021 Ambulatory Pharmacy [facility] Kelechi Panda , Ambulatory Pharmacy - [facility] Main [place] [address] [place] [phone] Social History Tobacco Use Types Packs/Day Years [...] Telemedicine Neurology Kj Gloria MD PhD 1 [facility], Level 2 [place], [place] [phone] (Wo rk) 09/06/2022 Procedure visit Pain Medicine Catalino Garrett M D 62 [facility] [address] [place] [address] (Wo rk) 09/21/2022 Office Visit Bariatrics Allen Thompson PA-C 111 [facility], [facility], Level 5 [place], [place] [address] (Wo rk) documented as of this encounter Visit Diagnoses Not on filedocumented in this encounter Care Teams Chair Maker Relationship Specialty Start Date End Date Shonda Sánchez NP PCP - General 03/14/21 01/31/[address] [place] [phone] [facility], [place] PCP - General 02/01/22 [address] [place] [address] Juma Herrera MD 12/08/18 [address] [place] [address] documented as of this encounter
--- OUTSIDE RECORDS SUMMARY | 2022-06-15 07:50 | XMS_ITS | Encounter Summary ---
:1975 Author Organization [facility] Address [address] [place] [address] Care Team Providers Name Role Phone Juma Herrera MD Unavailable Unavailable Shonda Sánchez NP Primary Care Provider Encounter Details Date Type Department Care Team Description 12/22/2021 Ambulatory Pharmacy [facility] Kelechi Panda , Ambulatory Pharmacy - [facility] Main [place] [address] [place], [place] [phone] Social History Tobacco Use Types Packs/Day Years [...] documented as of this encounter Progress Notes Kelechi Panda RPH - 12/22/2021 0902 EDT [facility]: [facility] dose increase Patient increasing Aimovig dose from 70 mg to 140 mg. Had questions regarding interactions or side effects to look out for with the dose increase. Tia was counseled to watch for constipation (this was not an issue on 70 mg dose). I did mention new or worsening hypertension. She said she has noticedher BP was about 10-15 points higher than normal. She will monitor at home with a blood pressure cough and follow up with Neuro/PCP if she has any further increases. Kelechi Panda, PharmD [facility] Ambulatory Pharmacist Clinician- Neurology 12/22/2021 documented in this encounter Plan of Treatment Upcoming Encounters Date Type Specialty Care Team Description 06/25/2022 Telemedicine Neurology Kj Gloria MD PhD 1 [facility] Level 2 [place], [place] [address] (Jayjay anaya) 09/06/2022 Procedure visit Pain Medicine Catalino Garrett M D 62 [facility] [address] [place] [address] (Jayjay anaya) 09/21/2022 Office Visit Bariatrics Allen Thompson PA-C 111 [facility], [facility], Level 5 [place], [place] [address] (Jayjay anaya) documented as of this encounter Visit Diagnoses Not on filedocumented in this encounter Care Teams Logistics Engineer Relationship Specialty Start Date End Date Shonda Sánchez NP PCP - General 03/14/21 01/31/[address] [place] [address] Juma Herrera MD 12/08/18 [address] [place] [address] documented as of this encounter
--- OUTSIDE RECORDS SUMMARY | 2022-06-15 07:50 | XMS_ITS | Encounter Summary ---
:1975 Author Organization [facility] Address [address] [place] [address] Care Team Providers Name Role Phone Juma Hererra MD Unavailable Unavailable [facility], Primary Care Provider [phone] Reason for Visit Reason Comments Neck Pain bilateral Office Procedure (Routine) - Specialty Report Received Specialty Diagnoses / Procedures Referred By Contact Refer red To Contact Pain Medicine Diagnoses Neck pain [facility] Catalino Garrett MD Procedures WA NJX DX/THER SBST INTRLMNR CRV/THRC W/IMG GDN [address] [place], [place] [address] [address] [place] [address] Phone: Fax: Referral ID Status Reason Start Date Expiration Date Visits V isits Requested Authorized [id number] Specialty 1 1 Report Received Encounter Details Date Type Department Care Team Description 02/01/2022 Procedure visit [facility] - Catalino Garrett Ra diculopathy, [facility] cervical region [facility] [address] [facility] (Primary Dx) Interventional Pain [address] [place], [place] [address] [place], [place] [phone] Social History Tobacco Use Types Packs/Day [...] Sign Reading Time Taken Comments Blood Pressure 131/82 02/01/2022 09 EDT Pulse 65 02/01/2022 09 EDT Temperature 35 ??C (95 ??F) 02/01/2022 08 EDT Respiratory Rate 18 02/01/2022 09 EDT Oxygen Saturation 99% 02/01/2022802 EDT Inhaled Oxygen Concentration - - Weight [...] as of this encounter Patient Instructions Patient InstructionsKaila Lovell RN - 02/01/2022 8:45 EDT [facility] [address] [address] Patient Instructions You have had [...] ??? If you develop increasingly severe neck pain, continued numbness or weakness of the arms, pleasecall our office immediately. Instructions for follow-up If you have any questions about your block, please call Patient Education Topic: Method: Handout and Verbal Taught to: Patient Barriers: None Outcomes: independent and verbalized understanding Holly Fan RN documented in this encounter Progress Notes Catalino Garrett MD - 02/01/2022 0845 EDT Patient Name: Tia Rooney : 1975 Date of Service: 02/01/2022 Gas Fitter Helper: Gerry MEHTA Beam Sealer: none Procedure: Therapeutic cervical epidural steroid injections [...] pt's course w/u functional limitiations Injection History: 02/01/2022: cervical epidural steroid injection at C6C7 12/2021: R subacromial inj and R AC [...] known recent infections. Physical Exam: Vitals: BP 133/73 Pulse 76 Temp (!) 35 ??C (95 ??F) (Tympanic) Resp 16 SpO2 99% General: Patient is alert and oriented, no [...] strength 5/5, sensory bilaterally equal to light touch, Assessment: 1. Radiculopathy, cervical region Plan: Ms. [...] She will call if knee pain worsens Less interested in working on her LB because treatments have not been very helpful and less of a problem compared to other issues. PROCEDURE: The patient gave informed written consent [...] intravascular or intrathecal injection. After negative aspiration, 80 mg Depo-Medrol and 2 mlNormal Saline were injected. The needle was then flushed and withdrawn. The patient tolerated the procedure well, there were no apparent complications, and she was discharged in stable condition. Written and verbal discharge instructions were reviewed with the patient prior to discharge. Gerry MEHTA STOTKaila Lovell RN - 02/01/2022 0845 EDT ATTENTION: An active Time-Out initiated by the [...] by the entire procedural team was completed. Mabel Montgomery MA - 02/01/2022 0845 EDT [facility] Rooming Note Does patient have a Rotary Drum Dyer? yes Is patient NPO? (Solids since midnight & liquids for 4 hrs) yes Blood Thinners: Is patient on Blood Thinners? no If yes, taking? If stopped, who authorized stopping? Related comments: Infections: Any recent infections, fever of illnesses? no If on antibiotics, is it 7-10 days past the date of completion of antibiotics? no : (for females of child-bearing age) Is there a chance current ? Do you have any type of implanted device? Nerve stimulator Vaccination: Have you had or are you planning to have a vaccination in the 2 weeks? no Other: no documented in this encounter Plan of Treatment Upcoming Encounters Date Type Specialty Care Team Description 06/25/2022 Telemedicine Neurology Kj Gloria MD PhD 1 [facility], Level 2 [place], [place] [phone] (Wo rk) 09/06/2022 Procedure visit Pain Medicine Catalino Garrett M D 62 [facility] [address] [place] [address] (Wo rk) 09/21/2022 Office Visit Bariatrics Allen Thompson PA-C 111 [facility], [facility], Level [address] [place], [place] [address] (Wo rk) documented as of this encounter Visit Diagnoses Diagnosis Radiculopathy, cervical region - Primary Brachial neuritis or radiculitis nos documented in this encounter Administered Medications Inactive Administered Medications - up to 3 most recent administrations Medication Order MAR Action Action Date Dose Rate Site dexAMETHasone (DECADRON) injection Given by Other 02/01/2022 9:25 EDT 10 mg 10 mg 10 mg, neural-axial, NOW X1, 1 dose, On Karen 02/01/22 at 0930, Routine Iohexol (OMNIPAQUE 180) injection 10 mL Given by Other 02/01/2022 9:25 EDT 2 mL 10 mL, neural-axial, NOW X1, 1 dose, On Karen 02/01/22 at 0930, Routine documented in this encounter Care Teams Assembly Machine Set Up Mechanic Relationship Specialty Start Date End Date [facility], [place] PCP - General 02/01/22 [address] [place] [address] Juma Herrera MD 12/08/18 [address] [place] [address] documented as of this encounter
--- OUTSIDE RECORDS SUMMARY | 2022-06-15 07:50 | XMS_ITS | Encounter Summary ---
:1975 Author Organization [facility] Address [address] [place] [address] Care Team Providers Name Role Phone Juma Herrera MD Unavailable Unavailable [facility], [place] Primary Care Provider [phone] Encounter Details Date Type Department Care Team Description 02/01/2022 Hospital Encounter [facility] X ray [address] [place], [place] [id number] Social History Tobacco Use Types Packs/Day Years [...] cloNIDine HCL (CATAPRES) Take 0.1 mg by 0 0.1 mg tablet mouth 2 times daily. cortisone acetate Inject 1 Dose into 0 (CORTISONE IM) the muscle every 3 months. duloxetine (CYMBALTA) 30 Take 90 mg by mouth daily Ta ke with 60mg cap to =90mg dose 0 05/16/2011 mg capsule erenumab-aooe (AIMOVIG Inject 1 mL into 3 mL 3 022 AUTOINJECTOR) 140 mg/mL the skin every 28 auto-injector days. MAGNESIUM ORAL Take 500 mg by 0 mouth daily. MEDICAL MARIJUANA as needed. 0 methylphenidate [...] (LYRICA) 50 mg Take 2 Caps by 180 Cap 3 2011 capsule mouth 3 times daily. prochlorperazine Take 1 Tab by mouth 60 Tab 0 08/31/2015 (COMPAZINE) 10 mg every 6 hours as tabletIndications: S/P needed for Nausea laparoscopic sleeve gastrectomy, Gastroesophageal reflux disease without esophagitis SUMAtriptan Succinate 6 Inject 6 mg into 6 mL 11 2020 mg/0.5 mL cartridge the skin as needed (migraine). Take as directed. diphenhydrAMINE-acetamino Take 1 Tablet by 0 05/17/2022 phen 25-500 mg tablet mouth at bedtime as needed. LORazepam (ATIVAN) 0.5 mg Take 0.5 mg by 0 05/17/2022 tablet mouth at bedtime. oxyCODONE (ROXICODONE) 5 Take 2 Tabs by 0 09/07/2 016 05/17/2022 mg immediate release mouth every 4 hours tablet Hold for now while taking liquid form Daily Max: 60 mg pediatric multivitamin Take 1 Tab by mouth 0 /0 02/201605/17/2022 (JUAN CHEW VIT) daily Hold for 2 chewable tablet weeks potassium chloride Take 20 mEq by 0 (KLOR-CON) 20 mEq packet mouth daily. rizatriptan (MAXALT) 10 Take 1 Tablet by 12 Tablet 11 202105/17/2022 mg tablet mouth as needed for Migraine. May repeat in 2 hours if needed. Not to exceed to 8 days per month documented as of this encounter Discharge Disposition Disposition Code Departure Means Destination Home or Self Care documented in this encounter Plan of Treatment Upcoming Encounters Date Type Specialty Care Team Description 06/25/2022 Telemedicine Neurology Kj Gloria MD PhD 1 [facility] [address] [place], [place] [address] (Jayjay anaya) 09/06/2022 Procedure visit Pain Medicine Catalino Garrett M D [address] [facility] [address] [place] [address] (Jayjay anaya) 09/21/2022 Office Visit Bariatrics Allen Thompson PA-C [address] [facility], [facility], [address] [place], [place] [address] (Jayjay anaya) documented as of this encounter Procedures Procedure Name Priority Date/Time Associated Diagnosis Comme nts PAIN CLINIC FL Routine 02/01/2022 9:22 EDT Result s for this CERVICAL INJECTION procedure are in the results section. documented in this encounter Results PAIN CLINIC FL CERVICAL INJECTION (02/01/2022 9:22 EDT) Specimen Narrative 02/01/2022 9:22 EDT This is a non-reportable exam. documented in this encounter Visit Diagnoses Not on filedocumented in this encounter Care Teams Spray Gun Striper Relationship Specialty Start Date End Date [facility], [place] PCP - General 02/01/22 [address] [place] [address] Juma Herrera MD 12/08/18 [address] [place] [address] documented as of this encounter
--- OUTSIDE RECORDS SUMMARY | 2022-06-15 07:50 | XMS_ITS | Encounter Summary ---
:1975 Author Organization [facility] Address [address] [place] [address] Care Team Providers Name Role Phone Juma Herrera MD Unavailable Unavailable [facility], Primary Care Provider [phone] Reason for Visit Reason Comments Injections Prior Authorization (See Order Priority) - Authorization Not Required Specialty Diagnoses / Procedures Referred By Contact Refer red To Contact Orthopedic Surgery Diagnoses Chronic right shoulder pain Jun Balbuena [employer]ley Sports MD [address] [facility] [place] [phone] Referral ID Status Reason Start Expiration Visits Visits Date Date Requested Authorized [id number] Authorization Specialty 1 1 Not Required Services 2 Required Encounter Details Date Type Department Care Team Description 05/03/2022 Procedure visit [facility] Jun Balbuena Imping ement syndrome of shoulder, right (Primary Dx); Sports Medicine MD Isidro Osteoarthritis of right acromioclavicula r joint; Program - Scout [place] Osteoarthritis of right ster noclavicular joint Mar[address] [phone] Social History Tobacco Use Types Packs/Day Years [...] documented as of this encounter Progress Notes Jun Balbuena MD - 05/03/2022 1440 EDTAssociated Order(s): Medication Only Injection Chief Complaint Patient presents with ??? Right Shoulder - Injections SUBJECTIVE: Tia Rooney is a 46 y.o. female who present for an ultrasound guided injection into her right subacromial space. Patient has a diagnosis of chronic right shoulder pain. She has impingement syndrome as well as AC and SC joint degenerative changes. 7 out of 10 pain. Risks, benefits and alternatives were discussed with the patient and consent was obtained. The finalVerification/time out immediately prior to incision/procedure has been conducted by me and members of the procedural team as appropriate to their involvement in the procedure. The patient???s identity,procedure, and when applicable the: side/site, patient position, availability of implants and any special equipment or special requirements was verbally confirmed prior to the procedure PROCEDURE NOTE: Right shoulder subacromial injection under ultrasound guidance The patient was brought to the examination room. The correct side was identified in a quach moment to accurately inject the proper joint. After verbal consent obtained, area of superolateral shoulder was palpated and landmarks were noted.The acromion, supraspinatus tendon and greater tuberosity were localized under ultrasound. Images were saved. Pt prepped with isopropyl alcohol and draped. The region to be injected was anesthestized using 3 cc of 2% lidocaine. Under sterile conditions and using ultrasound for guidance, the subacromial space was accessed with a 1.5 inch 22 gauge needle. The subacromial space was infused with 3 cc 2% lidocaine, 3 cc 0.5% marcaine and 2 cc 40 mg/cc kenalog without resistance. The bursa was noted to distend. Images were saved of the injection. Cleansed with isopropyl alcohol and bandaged. The patient tolerated the procedure well. After care was reviewed including icing, use of NSAIDs prn and activity modification. Will follow up in 4 weeks by phone. If she still has pain, we will target the right AC joint. I discussed all of the above verbally with patient, no barriers to understanding. The patient indicated understanding and agrees to the above plan. Jun Balbuena MD 14:42 05/03/2022 Procedure: Medication Only Injection on 05/03/2022 14:40 Medications: 80 mg triamcinolone acetonide 40 mg/mL; 3 mL lidocaine 20 mg/mL (2 %); 3 mL bupivacaine(PF) 0.5% documented in this encounter Plan of Treatment Upcoming Encounters Date Type Specialty Care Team Description 06/25/2022 Telemedicine Neurology Kj Gloria MD PhD 1 [facility] [address] [place], [place] [address] (Jayjay anaya) 09/06/2022 Procedure visit Pain Medicine Catalino Garrett M D [address] [facility] [address] [place] [address] (Jayjay anaya) 09/21/2022 Office Visit [facility]ans Allen Thompson PA-C [address] [place] [address], [facility], [address] [place], [place] [address] (Wo rk) documented as of this encounter Procedures Procedure Name Priority Date/Time Associated Diagnosis Comme nts MEDICATION ONLY Routine 05/03/2022 14:40 Impingement syndrome Results for this INJECTION EDT of shoulder, right procedure are in the results section. documented in this encounter Results Medication Only Injection (05/03/2022 14:40 EDT) Narrative [facility] POINT OF CARE - 05/03/2022 14:40 E DT Jun Balbuena MD ? 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 documented in this encounter Administered Medications Inactive Administered Medications - up to 3 most recent administrations Medication Order MAR Action Action Date Dose Rate Site bupivacaine (PF) (MARCAINE) 0.5% Given 05/03/2022 14:40 EDT 3 mL injection 3 mL 3 mL, intra-articular, Once PRN Procedure, 1 dose, Starting on Karen 05/03/22 at 1440, Until Karen 05/03/22 at 1440, Routine lidocaine 20 mg/mL (2 %) injection 3 mL Given 05/03/2022 14:40 EDT 3 mL 3 mL, other, Once PRN Procedure, 1 dose, Starting on Karen 05/03/22 at 1440, Until Karen 05/03/22 at 1440, Routine triamcinolone acetonide (KENALOG-40) injection Given 022 14:40 EDT 80 mg 80 mg 80 mg, other, Once PRN Procedure, 1 dose, Starting on Karen 05/03/22 at 1440, Until Karen 05/03/22 at 1440, Routine documented in this encounter Care Teams Magazine Filler Relationship Specialty Start Date End Date [facility] [place], [place] PCP - General 02/01/22 [address] [place] [address] Juma Herrera MD 12/08/18 [address] [place] [address] documented as of this encounter
--- OUTSIDE RECORDS SUMMARY | 2022-06-15 07:50 | XMS_ITS | Encounter Summary ---
:1975 Author Organization [facility] Address [address] [place] [address] Care Team Providers Name Role Phone Juma Herrera MD Unavailable Unavailable [facility], [place] Primary Care Provider Encounter Details Date Type Department Care Team Description 05/03/2022 Ancillary Procedure [facility] dorothy right shoulder Sports Medicine pain Program - Scout [address] [place] [address] Social History Tobacco Use Types Packs/Day [...] Telemedicine Neurology Kj Gloria MD PhD 1 [facility], [address] [place], [place] [address] (Wo rk) 09/06/2022 Procedure visit Pain Medicine Catalino Garrett M D [address] [facility] [address] [place] [address] (Wo rk) 09/21/2022 Office Visit Bariatrics Aleln Thompson PA-C 111 [facility], [facility], [address] [place], [place] [address] (Wo rk) documented as of this encounter Procedures Procedure Name Priority Date/Time Associated Diagnosis Comme nts POC MSK US SHOULDER Routine 05/03/2022 16:06 Chronic right Res ults for this EDT shoulder pain procedure are in the results section. documented in this encounter Results POC MSK US SHOULDER (05/03/2022 16:06 EDT) Specimen Narrative [facility] - 05/03/2022 16:06 E DT This is a non-reportable exam. Performing Organization Address City/State/ZIP Code Phon e Number [facility] POINT OF CARE documented in this encounter Visit Diagnoses Diagnosis Chronic right shoulder pain Pain in joint, shoulder region documented in this encounter Care Teams Senior Network Engineer Relationship Specialty Start Date End Date [facility], [place] PCP - General 02/01/22 [address] [place] [address] Juma Herrera MD 12/08/18 [address] [place] [address] documented as of this encounter
--- OUTSIDE RECORDS SUMMARY | 2022-06-15 07:50 | XMS_ITS | Encounter Summary ---
:1975 Author Organization [facility] Address [address] [place] [address] Care Team Providers Name Role Phone Juma Herrera MD Unavailable Unavailable [facility], Primary Care Provider [phone] Encounter Details Date Type Department Care Team Description 05/10/2022 Ambulatory Pharmacy [facility] Kelechi Panda , Ambulatory Pharmacy - [facility] [address] [place] [address] [place], [place] [phone] Social History Tobacco Use Types Packs/Day Years [...] documented as of this encounter Progress Notes Verena Irving - 05/10/2022 1347 EDT [facility] Specialty Pharmacy Delivery Information Hours: Saturday-Saturday 8:30am - 5:00pm *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 25/03 Delivery Service: [employer] Delivery Window: None Specified Date of Delivery: Saturday05/16/22 Tracking # : [id number] documented in this encounter Plan of Treatment Upcoming Encounters Date Type Specialty Care Team Description 06/25/2022 Telemedicine Neurology Kj Gloria MD PhD 1 [facility] [address] [place], [place] [phone] (Wo rk) 09/06/2022 Procedure visit Pain Medicine Catalino Garrett M D [address] [facility] [address] [place] [address] (Wo rk) 09/21/2022 Office Visit Bariatrics Allen Thompson PA-C 111 [facility], [address] [place], [place] [address] (Wo rk) documented as of this encounter Visit Diagnoses Not on filedocumented in this encounter Care Teams Electric Motor Winders Assembler Relationship Specialty Start Date End Date [facility] [place] PCP - General 02/01/22 [address] [place] [address] Juma Herrera MD 12/08/18 [address] [place] [address] documented as of this encounter
--- OUTSIDE RECORDS SUMMARY | 2022-06-15 07:51 | XMS_ITS | Encounter Summary ---
:1975 Author Organization [facility] Address [address] [place] [address] Care Team Providers Name Role Phone Juma Herrera MD Unavailable Unavailable Shonda Sánchez NP Primary Care Provider Reason for Referral Consult (See Order Priority) - Authorized Specialty Diagnoses / Procedures Referred By Contact Refer red To Contact Pharmacy Diagnoses Chronic migraine without aura without status migrainosus, not intractable Kj Gloria MD Ambulatory Pharmacy PhD [address] [facility] [address] [facility] [place] [address] [address], [address] [place], [place] Fax: [phone] Referral ID Status Reason Start Expiration Visits Visits Date Date Requested Authorized [id number] Authorized Specialty 12/18/2021 1 1 Services Required Question Answer PA Type: Re-auth Medication to be Prior Authorized: Aimovig sc change f rom 70mg to 140mg Q 28 days Comments The purpose of this request is to inform precertification staff that the requested service needs to be reviewed for prior-a uthorization. Reason for Visit Reason Comments Follow-up Telemedicine Video Visit Encounter Details Date Type Department Care Team Description 12/18/2021 Telemedicine [facility] Kj Gloria [facility] onic migraine Neurology - S PhD without aura without [place] 1 [facility] status migrainosus, [address] [facility] [place] [address] [address] (Primary Dx) [phone] [place] [phone] (Wo rk) Social History Tobacco Use Types [...] Sig Dispensed Refills Start Date End Date rizatriptan (MAXALT) 10 mg Take 1 Tablet by 12 Tablet 11 05/17/2022 tablet mouth as needed for Migraine. May repeat in 2 hours if needed. Not to exceed to 8 days per month documented in this encounter Progress Notes Kj Gloria MD PhD - 12/18/2021 1130 EDT TELEMEDICINE VIDEO VISIT Today's visit was provided through telemedicine video conferencing: I have reviewed the appropriateness of using video technology with the patient with regards to today's visit. The location of the patient : home The location of the provider: home The following people and their roles were present for today's visit: Appointment Provider: Kj Gloria MD PhD Resident: MD Kj Arellano MD PhD The concept of ???Telemedicine?? has been described to the patient.? Patient has been informed of the anticipated benefits and possible risks.? Patient understands the information provided regarding telemedicine, has had the opportunity to ask questions about this information, and all questions have been answered to patient???s satisfaction. Patient consents for the use of telemedicine in his/her medical care and authorizes the transmission of any relevant medical information to providers and theirstaff involved in patient???s medical or mental health care. Patient understands that they may be responsible for copays, deductible or coinsurance for this service. I spent a total of > 30 minutes on the date of this encounter meeting with the patient and reviewing documentation/coordinating care as described in the above note. Attestation statement: I performed or was present during the grace or critical portions of the visit and participated in the management of the patient. I agree with the findings and plan of care documented in the resident's/fellow's note. RE MD Juani, PhD Master Hill MD - 12/18/2021 1130 EDT Neurology Consult Follow Up Note Date of Service: 12/18/2021 PCP: Shonda Sánchez Follow up for: migraine Chief Complaint Patient presents with ??? Follow-up ??? Telemedicine Video Visit The concept of ???Telemedicine?? has been described to the patient.? Patient has been informed of the anticipated benefits and possible risks.? Patient understands the information provided regarding telemedicine, has had the opportunity to ask questions about this information, and all questions have been answered to patient???s satisfaction. Patient consents for the use of telemedicine in his/her medical care and authorizes the transmission of any relevant medical information to providers and theirstaff involved in patient???s medical or mental health care. TELEMEDICINE VIDEO VISIT Today's visit was provided through telemedicine video conferencing: The location of the patient : home The location of the provider: home The following staff and their role did participate in today's encounter visit: Kj Gloria MD PhD Master Hill MD (resident) I spent a total of > 30 minutes on the date of this encounter meeting with the patient and reviewing documentation/coordinating care as described in the above note. 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 She was last seen for a new patient evaluation via Zoom on 06/27/21. At that time, she reported 15 headache free days a month, down from daily headache, and only 3-4 severe migraines since starting Aimovig. Still getting headaches, which don't usually turn into migraines. Not waking up with headaches any more which is fantastic. She is estimating ~2-3 times a week having a mild headache, moderate migraines 2-3 times a week, only 2 episodes of severe migraine. Concerned about weather change, as headaches worsen in summer typically. No constipation since starting Aimovig. For severe migraines, she used to take sumatriptan injections, however her PCP stopped prescribing this as they feel it should go through headache clinic, wondering about interactions with Aimovig. Shehas tried sumatriptan (6mg tab) and rizatriptan tabs without beneficial effect. Medications and Allergies: Outpatient Medications Marked as Taking for the 12/18/21 encounter (Telemedicine) with Kj Gloria MD PhD Medication Sig Dispense Refill ??? busPIRone (BUSPAR) 5 mg tablet Take 30 mg by mouth 2 times daily. ??? calcium carbonate/vitamin D3 (VITAMIN D-3 ORAL) Take by mouth. ??? cholecalciferol, Vitamin D3, 25 mcg (1,000 unit) tablet Take 4,000 Units by mouth daily. ??? cloNIDine HCL (CATAPRES) 0.1 mg tablet Take 0.1 mg by mouth 2 times daily. ??? cortisone acetate (CORTISONE IM) Inject 1 Dose into the muscle every 3 months. ??? duloxetine (CYMBALTA) 30 mg capsule Take 90 mg by mouth daily Take with 60mg cap to =90mg dose ??? erenumab-aooe (AIMOVIG AUTOINJECTOR) 70 mg/mL auto-injector Inject 70 mg into the skin every 28 days. 3 Syringe 3 ??? LORazepam (ATIVAN) 0.5 mg tablet Take 0.5 mg by mouth at bedtime. ??? MEDICAL MARIJUANA as needed. ??? methylphenidate (RITALIN SR; METADATE ER; METHYLIN ER) 20 mg SR tablet Take by mouth 2 times daily. Takes 20 mg every morning, 20 mg every afternoon, 10 mg every evening. ??? methylphenidate (RITALIN;METHYLIN) 5 mg tablet Take 10 mg by mouth 2 times daily. ??? multivitamins (THERAGRAN) Take 5 mL by mouth daily. ??? nystatin (MYCOSTATIN) powder Apply to affected area twice daily. Clean and thoroughly dry area before application. 30 g 1 ??? omeprazole (PRILOSEC) 40 mg capsule Take 1 capsule by mouth daily. 90 capsule 3 ??? pregabalin (LYRICA) 50 mg capsule Take 2 Caps by mouth 3 times daily. 180 Cap 3 ??? prochlorperazine (COMPAZINE) 10 mg tablet Take 1 Tab by mouth every 6 hours as needed for [id number] Tab 0 ??? SUMAtriptan Succinate 6 mg/0.5 mL cartridge Inject 6 mg into the skin as needed (migraine). Takeas directed. 6 mL 11 Allergies Allergen Reactions ??? Adhesive Other (See Comments) Skin irritation, paper tape ok ??? Bee Sting [Hymenoptera Allergenic Extract] Swelling Fever and vomiting ??? Codeine Hives and Nausea And Vomiting ??? Other - See Comments Nausea And Vomiting Root beer Assessment and Plan: Chronic migraine. Increase dose of Aimovig to 140mg Q 28 days. Prescription sent for rizatriptan 10mg tabs, take 1 tab as needed at the start of severe headache, can repeat 1 dose after 2 hours if needed, do not take more than 8 tabs/month. Consideration can be made for subcutaneous sumatriptan again in the future if needed, but oral medications may be more effective since starting Aimovig as baseline headache severity has decreased significantly. Continue to keep headache record. Return to clinic 6 months. Tia was seen today for follow-up and telemedicine video visit. Diagnoses and all orders for this visit: Chronic migraine without aura without status migrainosus, not intractable - AMB CONS/FOLLOW UP SPECIALTY PHARMACY MEDICATION PRIOR AUTHORIZATION REQUEST; Future Other orders - cloNIDine HCL (CATAPRES) 0.1 mg tablet; Take 0.1 mg by mouth 2 times daily. - rizatriptan (MAXALT) 10 mg tablet; Take 1 Tablet by mouth as needed for Migraine. May repeat in 2 hours if needed. Not to exceed to 8 days per month Seen with Dr. Gloria. Master Hill MD 12/18/2021 11:56 Neurology PGY-3 documented in this encounter Plan of Treatment Upcoming Encounters Date Type Specialty Care Team Description 06/25/2022 Telemedicine Neurology Kj Gloria MD PhD 1 [facility] [address] [place], [place] [phone] (Wo rk) 09/06/2022 Procedure visit Pain Medicine Catalino Garrett M D [address] [facility] [address] [place] [address] (Jayjay rk) 09/21/2022 Office Visit Bariatrics Allen Thompson PA-C [address] [facility], [facility], [address] [place], [place] [address] (Jayjay rk) Scheduled Referrals Name Type Priority Associated Order Schedule Diagnoses AMB CONS/FOLLOW UP Outpatient Routine/Next Chronic migraine Expec shaina: SPECIALTY PHARMACY Referral Available without aura 2 MEDICATION PRIOR without status (Approxim ate), AUTHORIZATION migrainosus, not Expires: REQUEST intractable 12/18/2022 documented as of this encounter Visit Diagnoses Diagnosis Chronic migraine without aura without st atus migrainosus, not intractable - Primary Chronic migraine without aura, without m ention of intractable migraine without mention of status migrainosus documented in this encounter Discontinued Medications Medication Sig Discontinue Reason Start Date End Date rizatriptan (MAXALT) 10 Take 10 mg by mouth 12/18/2021 mg tablet once as needed. May repeat in 2 hours if needed documented as of this encounter Historical Medications This list may reflect changes made after this encounter. Medication Sig Dispensed Refills Start Date End Date cloNIDine HCL (CATAPRES) Take 0.1 mg by mouth 0 0.1 mg tablet 2 times daily. added in this encounter Care Teams Cotton Classer Relationship Specialty Start Date End Date Shonda Sánchez, GIULIA PCP - General 03/14/21 01/31/[address] [place] [address] Juma Herrera MD 12/08/18 [address] [place] [address] documented as of this encounter
--- OUTSIDE RECORDS SUMMARY | 2022-06-15 07:51 | XMS_ITS | Encounter Summary ---
:1975 Author Organization [facility] Address [address] [place] [address] Care Team Providers Name Role Phone Juma Herrera MD Unavailable Unavailable Shonda Sánchez NP Primary Care Provider Encounter Details Date Type Department Care Team Description 08/30/2021 Ambulatory Pharmacy [facility] Dragan Rodriguez [facility] Ambulatory Pharmacy - [address] [facility] [address] [place], [place] [phone] Social History Tobacco Use Types Packs/Day Years [...] Telemedicine Neurology Kj Gloria MD PhD 1 [facility] [address] [place], [place] [phone] (Wo rk) 09/06/2022 Procedure visit Pain Medicine Catalino Garrett M D [address] [facility] [address] [place] [address] (Wo rk) 09/21/2022 Office Visit Bariatrics Allen Thompson PALizettC [address] [facility], [address] [place], [place] [phone] (Wo rk) documented as of this encounter Visit Diagnoses Not on filedocumented in this encounter Additional Health Concerns Infection Onset Date Last Indicated Resolved Time COVID-19 08/15/2021 08/15/2021 09/04/2021 22:15 EST documented as of this encounter Care Teams Credit Verification Clerk Relationship Specialty Start Date End Date Shonda Sánchez NP PCP - General 03/14/21 01/31/[address] [place] [phone] Juma Herrera MD 12/08/18 [address] [place] [address] documented as of this encounter
--- OUTSIDE RECORDS SUMMARY | 2022-06-15 07:51 | XMS_ITS | Encounter Summary ---
:[address] [facility] Address [address] [place] [address] Care Team Providers Name Role Phone Juma Herrera MD Unavailable Unavailable Shonda Sánchez NP Primary Care Provider Reason for Visit Reason Onset Date Comments Appointment Related 07/06/2021 Encounter Details Date Type Department Care Team Description 07/06/2021 Telephone [facility] Kj Gloria MD Appointment Related Neurology - [address] PhD [address] [phone] [facility] 2 [place] [phone] (Wo rk) Social History Tobacco Use Types Packs/Day Years Used Date Former Smoker Quit: 01/14/20 09 Smokeless Tobacco: Never Used Alcohol Use Standard Drinks/Week Comments Yes 0 [...] Assigned at Date Recorded Not on file COVID-19 Exposure Response Date Recorded In the last month, have you been in contact with No / Unsure 06/22/2021 16:01 EDT someone who was confirmed or suspected to have Coronavirus / COVID-19? documented as of this encounter Functional Status [...] this encounter Miscellaneous Notes Telephone Encounter - Ankit Lucia - 07/06/2021 1229 EDT Check out 06/27/21 - Return in 6 months Called Tia and scheduled TVD FUR with Dr Gloria 12/18/21 at 11:30am TVD FUR 6M - L/S 06/27/21 [email or web address] [phone] ZOOM scheduling needed documented in this encounter Plan of Treatment Upcoming Encounters Date Type Specialty Care Team Description 06/25/2022 Telemedicine Neurology Kj Gloria MD PhD 1 [facility] 2 [place], [place] [phone] (Jayjay anaya) 09/06/2022 Procedure visit Pain Medicine Catalino Garrett M D [address] [facility] [address] [place] [address] (Jayjay anaya) 09/21/2022 Office Visit Bariatrics Allen Thompson PA-C [facility], [facility], [address] [place], [place] [address] (Jayjay anaya) documented as of this encounter Visit Diagnoses Not on filedocumented in this encounter Additional Health Concerns Infection Onset Date Last Indicated Resolved Time COVID-19 08/15/2021 08/15/2021 09/04/2021 22:15 EST documented as of this encounter Care Teams Policewoman Relationship Specialty Start Date End Date Shonda Sánchez, GIULIA PCP - General 03/14/21 01/31/[address] [place] [address] Juma Herrera MD 12/08/18 [address] [place] [address] documented as of this encounter
--- OUTSIDE RECORDS SUMMARY | 2022-06-15 07:51 | XMS_ITS | Encounter Summary ---
:1975 Author Organization [facility] Address [address] [place] [address] Care Team Providers Name Role Phone Juma Herrera MD Unavailable Unavailable Shonda Sánchez NP Primary Care Provider Reason for Referral Radiology Services (Routine/Next Available) - Authorization Not Required Specialty Diagnoses / Procedures Referred By Contact Refer red To Contact Radiology Diagnoses Chronic right shoulder pain Jun Balbuena MD [facility] Procedures MR SHOULDER WO CONTRAST RIGHT [address] [place] [address] Referral ID Status Reason Start Expiration Visits Visits Date Date Requested Authorized [id number] Authorization Not 09/12/2021 1 1 Required Reason for Visit Radiology Services (Routine/Next Available) - Authorization Not Required Specialty Diagnoses / Procedures Referred By Contact Refer red To Contact Radiology Diagnoses Chronic right shoulder pain Jun Balbuena MD [facility] Procedures MR SHOULDER WO CONTRAST RIGHT [address] [place] [address] Referral ID Status Reason Start Expiration Visits Visits Date Date Requested Authorized [id number] Authorization Not 09/12/2021 1 1 Required Encounter Details Date Type Department Care Team Description 10/05/2021 Hospital Encounter [facility] Chronic right shoulder Radiology MRI - Main pain [place] [address], [place] [id number] Social History Tobacco Use Types Packs/Day Years [...] 25 mcg (1,000 unit) mouth daily. tablet cortisone acetate Inject 1 Dose into 0 (CORTISONE IM) the muscle every 3 months. duloxetine (CYMBALTA) 30 Take 90 mg by mouth daily Ta ke with 60mg cap to =90mg dose 0 05/16/2011 mg capsule MAGNESIUM ORAL Take 500 mg by 0 [...] mg tablet mouth at bedtime as needed. erenumab-aooe (AIMOVIG Inject 70 mg into 3 Syringe 3 202012/20/2021 AUTOINJECTOR) 70 mg/mL the skin every 28 auto-injector days. LORazepam (ATIVAN) 0.5 mg Take 0.5 mg by 0 05/17/2022 tablet mouth at bedtime. oxyCODONE (ROXICODONE) 5 Take 2 Tabs by 0 016 05/17/2022 mg immediate release mouth every 4 hours tablet Hold for now while taking liquid form Daily Max: 60 mg pediatric multivitamin Take 1 Tab by mouth 0 02/201605/17/2022 (JUAN CHEW VIT) daily Hold for 2 chewable tablet weeks potassium chloride Take 20 mEq by 0 (KLOR-CON) 20 mEq packet mouth daily. rizatriptan (MAXALT) 10 Take 10 mg by mouth 0 12/18/2021 mg tablet once as needed. May repeat in 2 hours if needed documented as of this encounter Discharge Disposition Disposition Code Departure Means Destination Home or Self Care documented in this encounter Plan of Treatment Upcoming Encounters Date Type Specialty Care Team Description 06/25/2022 Telemedicine Neurology Kj Gloria MD PhD 1 [facility], [address] [place] [address] (Wo rk) 09/06/2022 Procedure visit Pain Medicine Catalino Garrett M D [address] [place] [address] (Wo rk) 09/21/2022 Office Visit Bariatrics Allen Thompson PA-C [address] [facility], [facility], [address] [place] [address] (Wo rk) documented as of this encounter Procedures Procedure Name Priority Date/Time Associated Diagnosis Comme nts MR SHOULDER WO Routine 10/05/2021 13:16 Chronic right Results for this CONTRAST RIGHT EST shoulder pain procedure ar e in the results section. documented in this encounter Results MR SHOULDER WO CONTRAST RIGHT (10/05/2021 13:16 EST) Anatomical Region Laterality Modality Upper Extremities Right Magnetic Resonance Specimen Impressions [facility] - 10/06/2021 17:02 EST MR SHOULDER WO CONTRAST RIGHT 1. Tendinosis of the distal supraspinatu s and infraspinatus tendons with articular sided and bursal sided fraying as well as a small undersurface tear at the junctional zone between the posterior supras pinatus and anterior infraspinatus tendo n fibers proximal to its footprint just distal to the level of the cable. No atrophy or fatty infiltration of the supraspinatus or infraspinatus muscles. 2. Small low-grade partial intrasubstanc e tear involving the upper fibers of the distal subscapularis tendon near its footprint on a background of tendinosis. No atrophy or fatty infiltration of the subscapularis muscle. 3. Severe osteoarthrosis of the AC joint with inferiorly pointing osseous proliferative changes which together with soft tissue edema in the adjacent portion of the SA/SD bursa as well as the aforementi oned tendinosis and bursal sided fraying of the nearby supraspinatus and infraspinatus tendons as well as the small undersurface junctional tear suggest an element of external subacromial impingement syndrome. I have personally reviewed the images an d the above interpretation and agree with the findings. Narrative [facility] - 10/06/2021 17:02 EST EXAM: MR SHOULDER WO CONTRAST RIGHT ??10/05/2021 1:00 PM TECHNIQUE: Routine multiplanar and multi sequence MR images of the right shoulder were obtained. No contrast was administered. HISTORY: Shoulder pain, bursitis suspect ed, nondiagnostic xray; Shoulder pain, rotator cuff disorder suspected, nondiagnostic xray; shoulder stiffness/pain COMPARISON: Right shoulder radiograph da shaina 09/12/2021. FINDINGS: Rotator Cuff: Supraspinatus/infraspinatus: There is te ndinosis of the supraspinatus and infraspinatus tendons with articular- and bursal-sided fraying, as well as a small undersurface tear at the junctional zone betw een the posterior supraspinatus and ante rior infraspinatus tendon fibers proximal to its footprint just distal to the level of the cable (coronal T2 #11). ??No atrophy or fatty infiltration of the respective muscle bellies. Teres Minor: Teres minor tendon is intac t. ??No muscle atrophy or fatty infiltration. Subscapularis: There is a very small low grade intrasubstance partial tear at the upper fibers of the distal subscapularis tendon near its footprint in the lesser tuberosity on a background of tendinosi s (sagittal T2 #12, axial #17). ??No mus jordon atrophy or fatty infiltration. Long head biceps tendon: ??Long head bic eps tendon is intact and normally positioned within the bicipital groove. Labrum: ??No discrete labral tear or cho ndrolabral separation. ?? Cartilage: ??Chondral surfaces are prese rved. Joint Space: ??No sizable glenohumeral j oint effusion. Bones: ??No abnormal bone marrow signal is identified. Acromioclavicular Joint: ??Severe acromi oclavicular joint osteoarthrosis with inferiorly oriented osteophyte. There is associated edema that may also be from nearby supraspinatus and infraspinatus tendi nosis that is likely a component of exte rnal subacromial impingement syndrome. Subacromial-Subdeltoid Bursa: ??Mild sof t tissue edema adjacent in the region of the SA/SD bursa particularly adjacent to the aforementioned inferiorly pointing osteophytes from the AC joint. Procedure Note Peterson Velasquez MD - 10/06/2021 EXAM: MR SHOULDER WO CONTRAST RIGHT 2021 1:00 PM TECHNIQUE: Routine multiplanar and multi sequence MR images of the right shoulder were obtained. No contrast was administered. HISTORY: Shoulder pain, bursitis suspect ed, nondiagnostic xray; Shoulder pain, rotator cuff disorder suspected, nondiagnostic xray; shoulder stiffness/pain COMPARISON: Right shoulder radiograph da shaina 09/12/2021. FINDINGS: Rotator Cuff: Supraspinatus/infraspinatus: There is te ndinosis of the supraspinatus and infraspinatus tendons with articular- and bursal-sided fraying, as well as a small undersurface tear at the junctional zone between the posterior supraspinatus and anterior infraspinatus tendon fibers proximal to its footprint just distal to the level of the cable (coronal T2 #11). No atrophy or fatty infiltration of the respective muscle bellies. Teres Minor: Teres minor tendon is intac t. No muscle atrophy or fatty infiltration. Subscapularis: There is a very small low grade intrasubstance partial tear at the upper fibers of the distal subscapularis tendon near its footprint in the lesser tuberosity on a background of tendinosis (sagittal T2 #12, axial #17). No muscle atrophy or fatty i nfiltration. Long head biceps tendon: Long head bicep s tendon is intact and normally positioned within the bicipital groove. Labrum: No discrete labral tear or chond rolabral separation. Cartilage: Chondral surfaces are preserv ed. Joint Space: No sizable glenohumeral sophia nt effusion. Bones: No abnormal bone marrow signal is identified. Acromioclavicular Joint: Severe acromioc lavicular joint osteoarthrosis with inferiorly oriented osteophyte. There is associated edema that may also be from nearby supraspinatus and infraspinatus tendinosis that is likely a component of external subacromi al impingement syndrome. Subacromial-Subdeltoid Bursa: Mild soft tissue edema adjacent in the region of the SA/SD bursa particularly adjacent to the aforementioned inferiorly pointing osteophytes from the AC joint. IMPRESSION MR SHOULDER WO CONTRAST RIGHT 1. Tendinosis of the distal supraspinatu s and infraspinatus tendons with articular sided and bursal sided fraying as well as a small undersurface tear at the junctional zone between the posterior supraspinatus and anterior infraspinatus tendon fibers pro ximal to its footprint just distal to the level of the cable. No atrophy or fatty infiltration of the supraspinatus or infraspinatus muscles. 2. Small low-grade partial intrasubstanc e tear involving the upper fibers of the distal subscapularis tendon near its footprint on a background of tendinosis. No atrophy or fatty infiltration of the subscapularis muscle. 3. Severe osteoarthrosis of the AC joint with inferiorly pointing osseous proliferative changes which together with soft tissue edema in the adjacent portion of the SA/SD bursa as well as the aforementioned tendinosis and bursal sided fraying of t he nearby supraspinatus and infraspinatus tendons as well as the small undersurface junctional tear suggest an element of external subacromial impingement syndrome. I have personally reviewed the images an d the above interpretation and agree with the findings. Performing Organization Address City/State/ZIP Code Phon e Number [facility] documented in this encounter Visit Diagnoses Diagnosis Chronic right shoulder pain Pain in joint, shoulder region documented in this encounter Care Teams Lpn Care Manager Relationship Specialty Start Date End Date Shonda Sánchez NP PCP - General 03/14/21 01/31/[address] [place] [phone] Juma Herrera MD 12/08/18 [address] [place] [address] documented as of this encounter
--- OUTSIDE RECORDS SUMMARY | 2022-06-15 07:51 | XMS_ITS | Encounter Summary ---
:1975 Author Organization [facility] Address [address] [place] [address] Care Team Providers Name Role Phone Juma Herrera MD Unavailable Unavailable Shonda Sánchez NP Primary Care Provider Encounter Details Date Type Department Care Team Description 09/25/2021 Ambulatory Pharmacy [facility] JenniferDragan [facility] Ambulatory Pharmacy - [address] [facility] [address] [place], [place] [phone] Social History Tobacco Use Types Packs/Day [...] Telemedicine Neurology Kj Gloria MD PhD 1 [facility] [address] [place], [place] [address] (Wo rk) 09/06/2022 Procedure visit Pain Medicine Catalino Garrett M D [address] [facility] [address] [place] [address] (Wo rk) 09/21/2022 Office Visit Bariatrics Allen Thompson PALizettC [address] [facility], [address] [place], [place] [address] (Wo rk) documented as of this encounter Visit Diagnoses Not on filedocumented in this encounter Care Teams Lathe Hand Relationship Specialty Start Date End Date Shonda Sánchez NP PCP - General 03/14/21 01/31/[address] [place] [phone] Juma Herrera MD 12/08/18 [address] [place] [address] documented as of this encounter
--- OUTSIDE RECORDS SUMMARY | 2022-06-15 07:51 | XMS_ITS | Encounter Summary ---
:1975 Author Organization [facility] Address [address] [place] [address] Care Team Providers Name Role Phone Juma Herrera MD Unavailable Unavailable Shonda Sánchez NP Primary Care Provider Reason for Referral Radiology Services (Routine/Next Available) - Authorization Not Required Specialty Diagnoses / Procedures Referred By Contact Refer red To Contact Diagnoses Chronic right shoulder pain Jun Balbuena MD [facility] Procedures XR LUMBAR SPINE 2-3 VIEWS [address] [place] [address] Referral ID Status Reason Start Expiration Visits Visits Date Date Requested Authorized [id number] Authorization Not 09/26/2021 1 1 Required Encounter Details Date Type Department Care Team Description 09/26/2021 Orders Only [facility] Jun Balbuena r ight shoulder Sports Medicine MD Isidro pain (Primary Dx) Program - [address] Maldonado [place], [facility] [phone] Social History Tobacco Use Types Packs/Day Years [...] Telemedicine Neurology Kj Gloria MD PhD 1 [facility] [address] [place], [place] [address] (Wo rk) 09/06/2022 Procedure visit Pain Medicine Catalino Garrett M D [address] [facility] [address] [place] [address] (Wo rk) 09/21/2022 Office Visit Bariatrics Allen Thompson PA-C [address] [facility] [address] [facility], [address] [place], [place] [address] (Wo rk) documented as of this encounter Results XR LUMBAR SPINE 2-3 VIEWS (10/05/2021 12:42 EST) Anatomical Region Laterality Modality Spine Computed Radiography Specimen Impressions [facility] - 10/06/2021 10:44 EST 1. Status post L5-S1 posterior fusion without evidence of hardware failure. 2. Spinal stimulator as above. Narrative [facility] - 10/06/2021 10:44 EST XR LUMBAR SPINE 2-3 VIEWS ??10/05/2021 2:15 PM Clinical History/Comments: shoulder mri, stimulator check prior. Technique: AP and lateral views of the lumbar spine . Comparison: Total spine radiographs 07/18/2021 Findings: Status post posterior decompression and instrumented fusion at L5-S1 with vertical joining rods and pedicle screws. Hardware is intact without evidence of loosening. Spinal stimulator and leads are seen pos terior to the lower lumbar spine and sacrum. Surgical yfn overlying the right upp er quadrant and pelvis. Procedure Note Javier Marcus MD - 10/06/2021 XR LUMBAR SPINE 2-3 VIEWS 10/05/2021 2:15 PM Clinical History/Comments: shoulder mri, stimulator check prior. Technique: AP and lateral views of the lumbar spine . Comparison: Total spine radiographs 07/18/2021 Findings: Status post posterior decompression and instrumented fusion at L5-S1 with vertical joining rods and pedicle screws. Hardware is intact without evidence of loosening. Spinal stimulator and leads are seen pos terior to the lower lumbar spine and sacrum. Surgical yfn overlying the right upp er quadrant and pelvis. IMPRESSION 1. Status post L5-S1 posterior fusion wi thout evidence of hardware failure. 2. Spinal stimulator as above. Performing Organization Address City/State/ZIP Code Phon e Number [facility] [place] documented in this encounter Visit Diagnoses Diagnosis Chronic right shoulder pain - Primary Pain in joint, shoulder region Chronic right shoulder pain Pain in joint, shoulder region documented in this encounter Care Teams Solderer Torch Relationship Specialty Start Date End Date Shonda Sánchez NP PCP - General 03/14/21 01/31/[address] [place] [address] Juma Herrera MD 12/08/18 [address] [place] [address] documented as of this encounter
--- OUTSIDE RECORDS SUMMARY | 2022-06-15 07:51 | XMS_ITS | Encounter Summary ---
:1975 Author Organization [facility] Address [address] [place] [id number] Care Team Providers Name Role Phone Juma Herrera MD Unavailable Unavailable Shonda Sánchez NP Primary Care Provider Reason for Visit Reason Comments Obesity Post op sleeve 6 years Encounter Details Date Type Department Care Team Description 09/22/2021 Office Visit [facility] Jay, Morbid obesity (HCC- CMS) (HCC) (Primary Dx); Bariatric Surgery - ZHOU Luque S/P laparoscopic sleeve gastrectomy; [address] BMI 33.0-33.9,adult [address] [phone] [facility] [address] [place] [address] (Wo rk) Social History Tobacco Use Types [...] Sign Reading Time Taken Comments Blood Pressure - - Pulse - - Temperature - - Respiratory Rate - - Oxygen Saturation - - Inhaled Oxygen Concentration - - Weight 98.9 kg (218 lb) 09/22/2021 1043 EST Height 172.7 cm (5' 7.99) 09/22/2021 1043 EST Body Mass Index 33.15 09/22/2021 1043 EST documented in this encounter Functional Status Functional [...] Sig Dispensed Refills Start Date End Date omeprazole (PRILOSEC) 40 Take 1 capsule by 90 capsule 3 09/03 mg capsule mouth daily. documented in this encounter Progress Notes Allen Thompson, ELISABETH - 09/22/2021 1030 EST 09/22/2021 Tia Rooney is here in follow-up to her laparoscopic sleeve gastrectomy 6 years ago. The weight trend for the patient is: Weight at initial consult: 147.7 kg (325 lb 9.6 oz), to 97 kg (213 lb 12.8 oz) [] at the last post-op visit to today's Weight : 98.9 kg (218 lb). PROBLEM LIST Patient Active Problem List Diagnosis ??? Lumbar radiculopathy ??? Os trigonum syndrome ??? Tarsal tunnel syndrome of right side ??? Idiopathic peripheral neuropathy ??? Cervicalgia ??? Morbid obesity with BMI of 45.0-49.9, adult ([facility]) ([facility]) ??? Chronic migraine without aura without status migrainosus, not intractable SUBJECTIVE: Emesis: No complaints of emesis Nausea: No complaints of nausea Increased Volume Tolerance: no Abdominal Pain: No complaints of abdominal pain Lightheadedness: No complaints of lightheadedness Bowel Function: Normal Pannus: Rash under pannus, especially laterally OBJECTIVE: General Appearance: healthy appearing, alert and in no apparent distress Abdomen: Incisions well-healed Extremities: Normal Skin: Excess abdominal skin, no rashes ASSESSMENT: Doing well, Expected course without obvious complications and Weight Loss: Good - did regain some weight but is stabiized, she would like to lose weight again. Has GERD symptoms on reduced dose of omeprazole so will prescribe 40 mg daily. She may take NSAIDs for her joint pain - she tolerated them before and after bariatric surgery with no issues and since she had sleeve her risk of GI issues is no higher than previously (as opposed to gastric bypass where risks of ulcer are higher). Will prescribe nystatin for intermittent rashes. PLAN: 1. Return to clinic in 1 year(s). 2. No orders of the defined types were placed in this encounter. 3. Labs followed by PCP Seen and discussed with Medical Information Specialist at this visit. Allen Thompson PA-C 09/22/2021 11:[address] - 09/22/2021 1030 EST Nutrition Post Op Visit: Gastric Sleeve Subjective: Patient returns to clinic for post op nutritional counseling following bariatric surgery~ 6 years ago. Questionnaire Reviewed: Yes Intolerance Episodes: yes once a week has foaming or burping if she eats too fast or too much Food Intolerances: none; dislikes Spinach Current Exercise: Treadmill 4-7 days a week(time varies due to pain) Objective: Current Weight: Wt Readings from Last 1 Encounters: 09/22/21 98.9 kg (218 lb) Current BMI: Body mass index is Body mass index is 33.15 kg/m??.. Total Weight Loss: Total Loss in lbs (Weight from Initial Consult - Today's Weight): (!) 107.6 lbs Weight Change since Last Visit:+4.2 lbs and lost 60.8 lbs since surgery Supplement Usage: Type Amount MVT [facility] Women's plus X 1 B12 Calcium w/Vit D X1 Vit D 2000 units X1 Other: Recent Labs: WNL, Abnormal (Low Vit D in 2020) Assessment: Adequate Meal Frequency: Yes Adequate Meal Composition: Yes Exercise Adequacy: Yes Hydration/Caffeine:2 cans regular Gingerale as she cannot tolerate diet sugar; Cup of Coffee with sweetened Malay Vanilla Creamer or Ice coffee at work; drinks water all day Alcohol Intake:Yes, Once or twice a month Sleep:Poor at baseline due to pain and anxiety Stress/Anxiety/Depression: Nutritional Issues:Tia reports skipping breakfast and lunch. Shew however takes a protein drink(half scoop in water) for breakfast in the morning.She will eat lunch 2-3 days a week(Lean Cuisine meal). She eats fried meat or air fryer/potato/veggies at supper meal. She is too busy at dinner meal valentine DTR lives with her. Suggested slowing down at supper meal. She is happy to tolerate cauliflower if she eats slower. She rarely does drink some liquid with meal if the meat has too much salt. She can tolerate 3 to 6 ounces of protein foods at dinner meal. She eats half of her protein before she eats rest of her meal.She incorporates veggies with meals(Carrots, green beans, corn, cauliflower,Broccol i). She wants to take the protein shake at breakfast and lunch meal to avoid skipping meals. Plan: Continue current diet and exercise Change intake: Add milk to protein water, Eat slowly at meal times to avoid intolerance issues; avoid liquids with meals Supplement Changes:increase vit D to 4000 units a day due to Hx of low vitamin D Initiate food logs Education Provided: Weight Control:1 lbs per week or maintain current wt Other: documented in this encounter Plan of Treatment Upcoming Encounters Date Type Specialty Care Team Description 06/25/2022 Telemedicine Neurology Kj Gloria MD PhD 1 [facility] [address] [place], [place] [phone] (Wo rk) 09/06/2022 Procedure visit Pain Medicine Catalino Garrett M D [address] [facility] [address] [place] [address] (Wo rk) 09/21/2022 Office Visit Bariatrics Allen Thompson PA-C [address] [facility], [facility], [address] [place], [place] [address] (Wo rk) documented as of this encounter Visit Diagnoses Diagnosis Morbid obesity (HCC-CMS) ([facility]) - Primary Morbid obesity S/P laparoscopic sleeve gastrectomy Bariatric surgery status BMI 33.0-33.9,adult Body Mass Index 33.0-33.9, adult documented in this encounter Discontinued Medications Medication Sig Discontinue Reason Start Date End Date omeprazole (PRILOSEC) 20 mg Take 2 Caps by 08/31/2015 09/22/2021 capsuleIndications: S/P mouth daily laparoscopic sleeve gastrectomy, Gastroesophageal reflux disease without esophagitis documented as of this encounter Care Teams Core Feeder Relationship Specialty Start Date End Date Shonda Sánchez NP PCP - General 03/14/21 01/31/[address] [place] [address] Juma Herrera MD 12/08/18 [address] [place] [address] documented as of this encounter
--- OUTSIDE RECORDS SUMMARY | 2022-06-15 07:51 | XMS_ITS | Encounter Summary ---
:1975 Author Organization [facility] Address [address] [place] [address] Care Team Providers Name Role Phone Juma Herrera MD Unavailable Unavailable Shonda Sánchez NP Primary Care Provider Reason for Visit Reason Onset Date Comments Medication Problem 09/22/2021 Encounter Details Date Type Department Care Team Description 09/22/2021 Telephone [facility] Allen Thompson Medication Problem Bariatric Surgery - A, [facility] [address] [address] [place], [place] [address] (Wo rk) Social History Tobacco [...] Sig Dispensed Refills Start Date End Date nystatin (MYCOSTATIN) Apply to affected area 30 g 1 powder twice daily. Clean and thoroughly dry area before application. documented in this encounter Miscellaneous Notes Telephone Encounter - Evie Emmanuel RN - 09/25/2021 1433 EST RN spoke to the patient who states Allen Thompson PA-C was going to prescribe her a medicationfor a rash in her skin folds. RN discussed with Allen BARBER who gave a verbal order for nystatin powder twice daily. Patient notified and verbalized understanding. All questions answered. elephone Encounter - Tracy Stiles - 09/22/2021 1405 EST Tia calling, advised went to pharmacy to mixing picker tender powder discussed at this morning's appointment & was advised only RX received was for Omeprazole. Tia requesting RX be sent to [facility] for powder. Can be reached at [phone] if any questions. documented in this encounter Plan of Treatment Upcoming Encounters Date Type Specialty Care Team Description 06/25/2022 Telemedicine Neurology Kj Gloria MD PhD 1 [facility], Level 2 [place] [address] (Wo rk) 09/06/2022 Procedure visit Pain Medicine Catalino Garrett M D [address] [place] [address] [address] [place] [address] (Wo rk) 09/21/2022 Office Visit Bariatrics Allen Thompson PA-C [address] [facility], [facility], Level 5 [place], [place] [address] (Wo rk) documented as of this encounter Visit Diagnoses Not on filedocumented in this encounter Care Teams Sales Representative Printing Paper Relationship Specialty Start Date End Date Shonda Sánchez NP PCP - General 03/14/21 01/31/[address] [place] [address] Juma Herrera MD 12/08/18 [address] [place] [address] documented as of this encounter
--- OUTSIDE RECORDS SUMMARY | 2022-06-15 07:51 | XMS_ITS | Encounter Summary ---
:1975 Author Organization [facility] Address [address] [place] [address] Care Team Providers Name Role Phone Juma Herrera MD Unavailable Unavailable Shonda Sánchez NP Primary Care Provider Reason for Visit Reason Onset Date Comments Appointment Related 06/21/2021 Encounter Details Date Type Department Care Team Description 06/21/2021 Telephone [facility] - Catalino Garrett MD Appointment Related [address] Interventional Pain [address] [address] [place], [place] 05 [facility] [phone] Social History Tobacco Use Types Packs/Day Years [...] this encounter Miscellaneous Notes Telephone Encounter - Zay Fang - 06/21/2021 1558 EDT Called patient to remind her of her 4:30 Follow Up tomorrow with Dr. Garrett and to please arrive at 3:45 documented in this encounter Plan of Treatment Upcoming Encounters Date Type Specialty Care Team Description 06/25/2022 Telemedicine Neurology Kj Gloria MD PhD 1 [facility] 2 [place], [place] [address] (Wo rk) 09/06/2022 Procedure visit Pain Medicine Catalino Garrett M D [address] [facility] [address] [place] [address] (Jayjay anaya) 09/21/2022 Office Visit Bariatrics Allen Thompson PA-C [address] [place] [address] [facility], [facility], Level 5 [place], [place] [address] (Jayjay anaya) documented as of this encounter Visit Diagnoses Not on filedocumented in this encounter Care Teams Subcontract Manager Relationship Specialty Start Date End Date Shonda Sánchez NP PCP - General 03/14/21 01/31/[address] [place] [address] Juma Herrera MD 12/08/18 [address] [place] [address] documented as of this encounter
--- OUTSIDE RECORDS SUMMARY | 2022-06-15 07:51 | XMS_ITS | Encounter Summary ---
:1975 Author Organization [facility] Address [address] [place] [address] Care Team Providers Name Role Phone Juma Herrera MD Unavailable Unavailable Shonda Sánchez NP Primary Care Provider Reason for Referral Medication Prior Authorization (See Order Priority) - Authorized Specialty Diagnoses / Procedures Referred By Contact Refer red To Contact Pharmacy Diagnoses Chronic migraine without aura without status migrainosus, not intractable Kj Gloria MD Ambulatory Pharmacy PhD [address] 2 [place], [place] Fax: [phone] Referral ID Status Reason Start Expiration Visits Visits Date Date Requested Authorized [id number] Authorized Medication Prior 1 Authorization 1 Question Answer Medication to be Prior Authorized: Aimovig reauth Comments The purpose of this request is to inform precertification staff that the requested service needs to be reviewed for prior-a uthorization. Reason for Visit Reason Onset Date Comments Prior Auth, Medication 06/05/2021 Aimovig 70mg/mL P en (Q 28 days) Encounter Details Date Type Department Care Team Description 06/05/2021 Telephone [facility] Kj Gloria Pri or Auth, Medication Neurology - S Lorna bergeron MD PhD (Aimovig 70mg/mL Pen [address] [facility] [address] [facility] (Q 28 days)) [place] [address] Street [phone] [facility] 2 [place] [address] (Jayjay rk) Social History Tobacco Use Types Packs/Day [...] Telemedicine Neurology Kj Gloria MD PhD [address] [address] (Jayjay rk) 09/06/2022 Procedure visit Pain Medicine Catalino Garrett M D [address] [place] [address] [address] [place] [address] (Wo rk) 09/21/2022 Office Visit Bariatrics Allen Thompson, ELISABETH [address] [place] [address] [facility], [facility], Level 5 [place], [place] [address] (Wo rk) Scheduled Referrals Name Type Priority Associated Order Schedule Diagnoses AMB MEDICATION PRIOR Outpatient Routine/Next Chronic migraine Ord ered: AUTHORIZATION Referral Available without aura 06/05/2021 REQUEST without status migrainosus, not intractable documented as of this encounter Visit Diagnoses Diagnosis Chronic migraine without aura without st atus migrainosus, not intractable - Primary Chronic migraine without aura, without m ention of intractable migraine without mention of status migrainosus documented in this encounter Additional Health Concerns Infection Onset Date Last Indicated Resolved Time COVID-19 08/15/2021 08/15/2021 09/04/2021 22:15 EST documented as of this encounter Care Teams Infantry Unit Leader Relationship Specialty Start Date End Date Shonda Sánchez, GIULIA PCP - General 03/14/21 01/31/[address] [place] [address] Juma Herrera MD 12/08/18 [address] [facility] [address] documented as of this encounter
--- OUTSIDE RECORDS SUMMARY | 2022-06-15 07:51 | XMS_ITS | Encounter Summary ---
:1975 Author Organization [facility] Address [address] [place] [address] Care Team Providers Name Role Phone Juma Herrera MD Unavailable Unavailable Shonda Sánchez NP Primary Care Provider Encounter Details Date Type Department Care Team Description 04/05/2021 Ambulatory Pharmacy [facility] Dragan Rodriguez [facility] Ambulatory Pharmacy - [address] [facility] [address] [place], [place] [phone] Social History Tobacco Use Types Packs/Day [...] been in contact with No / Unsure 04/05/2021 10:03 EDT someone who was confirmed or suspected [...] documented as of this encounter Progress Notes Charlotte Bhatti RPH - 04/05/2021 0922 EDT Spoke with patient to follow-up after her first Aimovig injection (on 03/24). She said it went well, she was able to use the pen successfully, and has not experienced any side effects. She has only had 3 migraines since starting Aimovig. She is aware of her appointment with Dr. Gloria in June, and I will follow-up with the notes at that time to see how things are going. Charlotte Navas, PharmD Ambulatory Pharmacist Clinician [facility] Specialty Pharmacy 04/07/2021 documented in this encounter Plan of Treatment Upcoming Encounters Date Type Specialty Care Team Description 06/25/2022 Telemedicine Neurology Kj Gloria MD PhD 1 [facility] Level 2 [place], [place] [address] (Jayjay anaya) 09/06/2022 Procedure visit Pain Medicine Catalino Garrett M D [address] [facility] [address] [place] [address] (Jayjay anaya) 09/21/2022 Office Visit Bariatrics Allen Thompson PA-C 111 [facility] venue [facility], [facility], Level [address] [place], [place] [address] (Jayjay anaya) documented as of this encounter Visit Diagnoses Not on filedocumented in this encounter Care Teams Doctor Podiatric Medicine Relationship Specialty Start Date End Date Shonda Sánchez, OFFICE ASSISTANT RECEPTIONIST PCP - General 03/14/21 01/31/[address] [place] [address] Juma Herrera MD 12/08/18 [address] [place] [address] documented as of this encounter
--- OUTSIDE RECORDS SUMMARY | 2022-06-15 07:51 | XMS_ITS | Encounter Summary ---
:1975 Author Organization [facility] Address [address] [place] [address] Care Team Providers Name Role Phone Juma Herrera MD Unavailable Unavailable Shonda Sánchez NP Primary Care Provider Encounter Details Date Type Department Care Team Description 05/17/2021 Travel Social History Tobacco Use Types Packs/Day Years Used Date Former Smoker Quit: 01/14/20 Smokeless Tobacco: Never Used Alcohol Use Standard [...] been in contact with No / Unsure 05/17/2021 8:56 EDT someone who was confirmed or suspected [...] Telemedicine Neurology Kj Gloria MD PhD 1 [facility] Level 2 [place], [place] [phone] (Wo rk) 09/06/2022 Procedure visit Pain Medicine Catalino Garrett M D [address] [facility] [address] [place] [address] (Wo rk) 09/21/2022 Office Visit Bariatrics Allen Thompson PA-C [address] [facility], [facility], Level [address] [place], [place] [address] (Wo rk) documented as of this encounter Visit Diagnoses Not on filedocumented in this encounter Care Teams Washer Hand Relationship Specialty Start Date End Date Shonda Sánchez, GIULIA PCP - General 03/14/21 01/31/[address] [place] [phone] Juma Herrera MD 12/08/18 [address] [place] [address] documented as of this encounter
--- OUTSIDE RECORDS SUMMARY | 2022-06-15 07:51 | XMS_ITS | Encounter Summary ---
:1975 Author Organization [facility] Address [address] [place] [address] Care Team Providers Name Role Phone Juma Herrera MD Unavailable Unavailable Shonda Sánchez NP Primary Care Provider Reason for Referral Radiology Services (Routine/Next Available) - Authorization Not Required Specialty Diagnoses / Procedures Referred By Contact Refer red To Contact Diagnoses Chronic right shoulder pain Jun Balbuena MD [facility] Procedures XR SHOULDER RIGHT 2 OR MORE VIEWS [address] [place] [address] Referral ID Status Reason Start Expiration Visits Visits Date Date Requested Authorized [id number] Authorization Not 09/05/2021 1 1 Required Reason for Visit Radiology Services (Routine/Next Available) - Authorization Not Required Specialty Diagnoses / Procedures Referred By Contact Refer red To Contact Diagnoses Chronic right shoulder pain Jun Balbuena MD [facility] Procedures XR SHOULDER RIGHT 2 OR MORE VIEWS [address] [place] [address] Referral ID Status Reason Start Expiration Visits Visits Date Date Requested Authorized [id number] Authorization Not 09/05/2021 1 1 Required Encounter Details Date Type Department Care Team Description 09/12/2021 Hospital Encounter [facility] Xray Chronic right shoulder [address] [place] [address] Social History Tobacco Use Types Packs/Day Years [...] (BUSPAR) 5 mg Take 30 mg by 0 tablet mouth 2 times daily. calcium carbonate/vitamin Take by mouth. 0 D3 (VITAMIN D-3 ORAL) cholecalciferol, Vitamin Take 4,000 Units 0 D3, 25 mcg (1,000 unit) by mouth daily. tablet cortisone acetate Inject 1 Dose into 0 (CORTISONE IM) the muscle every 3 months. duloxetine (CYMBALTA) 30 mg Take 90 mg by mouth daily Take with 60mg cap to =90mg dose 0 05/16/2011 capsule MAGNESIUM ORAL Take 500 mg by 0 mouth daily. MEDICAL MARIJUANA as needed. 0 methylphenidate (RITALIN Take by mouth 2 0 SR; METADATE ER; METHYLIN times daily. Takes ER) 20 mg SR tablet 20 mg every morning, 20 mg every afternoon, 10 mg every evening. methylphenidate Take 10 mg by 0 (RITALIN;METHYLIN) 5 mg mouth 2 times tablet daily. multivitamins (THERAGRAN) Take 5 mL by mouth 0 daily. pregabalin (LYRICA) 50 mg Take 2 Caps by 180 Cap 3 2011 capsule mouth 3 times daily. prochlorperazine Take 1 Tab by 60 Tab 0 08/31/2015 (COMPAZINE) 10 mg mouth every 6 tabletIndications: S/P hours as needed laparoscopic sleeve for Nausea gastrectomy, Gastroesophageal reflux disease without esophagitis SUMAtriptan Succinate 6 Inject 6 mg into 6 mL 11 2020 mg/0.5 mL cartridge the skin as needed (migraine). Take as directed. diphenhydrAMINE-acetaminoph Take 1 Tablet by 0 05/17/2022 en 25-500 mg tablet mouth at bedtime as needed. erenumab-aooe (AIMOVIG Inject 70 mg into 3 Syringe 3 202012/20/2021 AUTOINJECTOR) 70 mg/mL the skin every 28 auto-injector days. LORazepam (ATIVAN) 0.5 mg Take 0.5 mg by 0 05/17/2022 tablet mouth at bedtime. omeprazole (PRILOSEC) 20 mg Take 2 Caps by 60 Cap 3 08/0409/22/2021 capsuleIndications: S/P mouth daily laparoscopic sleeve gastrectomy, Gastroesophageal reflux disease without esophagitis oxyCODONE (ROXICODONE) 5 mg Take 2 Tabs by 0 01/0 02/201605/17/2022 immediate release tablet mouth every 4 hours Hold for now while taking liquid form Daily Max: 60 mg pediatric multivitamin Take 1 Tab by 0 09/07/2015 05/17/2022 (JUAN CHEW VIT) chewable mouth daily Hold tablet for 2 weeks potassium chloride Take 20 mEq by 0 (KLOR-CON) 20 mEq packet mouth daily. rizatriptan (MAXALT) 10 mg Take 10 mg by 0 12/18/2021 tablet mouth once as needed. May repeat in 2 hours if needed documented as of this encounter Discharge Disposition Disposition Code Departure Means Destination Home or Self Care documented in this encounter Plan of Treatment Upcoming Encounters Date Type Specialty Care Team Description 06/25/2022 Telemedicine Neurology Kj Gloria MD PhD 1 [facility], [facility] 2 [place], [place] [address] (Wo rk) 09/06/2022 Procedure visit Pain Medicine Catalino Garrett M D [address] [facility] [address] [place] [address] (Wo rk) 09/21/2022 Office Visit Bariatrics Allen Thompson PA-C [address] [place] [address] venue [facility], [facility], Level [address] [place], [place] [address] (Wo rk) documented as of this encounter Procedures Procedure Name Priority Date/Time Associated Diagnosis Comme nts XR SHOULDER RIGHT 2 Routine 09/12/2021 14:33 Chronic right Res ults for this OR MORE VIEWS EST shoulder pain procedure are in the results section. documented in this encounter Results XR SHOULDER RIGHT 2 OR MORE VIEWS (09/12/2021 14:33 EST) Anatomical Region Laterality Modality Right Computed Radiography Specimen Impressions [facility] - 09/12/2021 16:51 EST FINDINGS / IMPRESSION: * ??Mild AC joint degenerative changes. * ??No significant glenohumeral osteophy te formation. * ??Normal mineralization without fractu re. Narrative [facility] - 09/12/2021 16:51 EST EXAM/TECHNIQUE: 09/12/2021 2:15 PM ??XR SHOULDER RIGHT 2 OR MORE VIEWS 3 views ?? HISTORY: ??right shoulder pain Procedure Note Ever Willson MD - 09/12/2021 EXAM/TECHNIQUE: 09/12/2021 2:15 PM XR JARRELL ULDER RIGHT 2 OR MORE VIEWS 3 views HISTORY: right shoulder pain IMPRESSION FINDINGS / IMPRESSION: * Mild AC joint degenerative changes. * No significant glenohumeral osteophyte formation. * Normal mineralization without fracture . Performing Organization Address City/State/ZIP Code Phon e Number [facility] documented in this encounter Visit Diagnoses Diagnosis Chronic right shoulder pain Pain in joint, shoulder region documented in this encounter Care Teams Rug Setter [place] Relationship Specialty Start Date End Date Shonda Sánchez NP PCP - General 03/14/21 01/31/[address] [place] [phone] Juma Herrera MD 12/08/18 [address] [facility] [place] [address] documented as of this encounter
--- OUTSIDE RECORDS SUMMARY | 2022-06-15 07:51 | XMS_ITS | Encounter Summary ---
:1975 Author Organization [facility] Address [address] [place] [address] Care Team Providers Name Role Phone Juma Herrera MD Unavailable Unavailable Shonda Sánchez NP Primary Care Provider Reason for Visit Reason Onset Date Comments Appointment Related 09/22/2021 Encounter Details Date Type Department Care Team Description 09/22/[address] [facility] - Catalino Garrett MD Appointment Related [address] Interventional Pain [address] [place] [address] [place], [place] [address] [facility] [phone] Social History Tobacco Use Types Packs/Day Years [...] this encounter Miscellaneous Notes Telephone Encounter - Fang Collazo - 10/04/2021 1320 EST Called patient and scheduled next injection 01/09/22 at 8:[address] Garrett Reminded patient of the following items: -Patient must have a frontload driver -Patient needs to arrive 45 minutes ahead of procedural start time -Patient must be infection free and off antibiotics for 14 days prior to appointment -Patient should NOT have vaccines 2 weeks before or after procedures that involve steroids -Procedural Safety Medications and Fasting Instructions as applicable Directions and clinic phone number were provided to patient as needed. elephone Encounter - Shantelle Gautam RN - 09/25/2021 0912 EST Inj hx 05/17/2021: sacroiliac joint injection bilateral - 80% improvement x4 weeks, now at 50% improvement 04/05/2021: cervical epidural steroid injection at C6C7??- 80% improvement in posterior neck pain. Still has anterior shoulder, neck clavicular pain 03/20/2021: intra-articularR knee??joint injection w monovisc??- helpful with walking up stairs and improving mobility 11/17/20: cervical epidural - 80% improvement of neck pain 11/06/19: b/l SIJ inj 90% improvement in LBP x3 months 07/27/19: b/l SI Joint inj - 90% improvement in LBP x 3 months 01/28/19: ??C6C7 CUAUHTEMOC - 80%??for 9 months 09/15/18: C6C7 CUAUHTEMOC -??80% relief for 3 months ??hx of multiple b/l SIJ injections going back to 2013 L5-S1 decompression and fusion (2006) 06/22/2021: Plan per Dr Garrett's office visit note of 06/22/2021: Her YSABEL is somewhat effective for posterior neck pain, but I don't have a good explanation for her anterior clavicular neck and shoulder pain. I would not be able to inject steroids in any more body parts anyway, so I suggest PT for this symptom. 09/25/2021: RN left a message for the pt to return call. 09/28/2020: RN left a message for the pt to return call. 10/03/2021: RN spoke with the pt and obtained pain relief numbers as below. Pt states her currentpain level to her neck is a 10/10. She has participated in physical therapy in the past but it was not beneficial. Stretches entire body everyday including her neck a uses a treadmill 3 times weekly Date and type of procedure: 04/05/2021: cervical epidural steroid injection at C6C7??- 80% improvementin posterior neck pain. Still has anterior shoulder, neck clavicular pain Provider: Dr. Garrett Hours of relief: 3 months then a gradual return of symptoms % of relief: 80% Next appointment: Her YSABEL is somewhat effective for posterior neck pain, but I don't have a good explanation for her anterior clavicular neck and shoulder pain. I would not be able to inject steroids in any more body parts anyway, so I suggest PT for this symptom. Forwarded to PSS to obtain prior auth for repeat cervical epidural steroid injection at C6C7?? elephone Encounter - Fang Collazo - 09/22/2021 4993 EST Patient called looking to get scheduled for another neck injections. Dr. Garrett's notes at her last follow up 06/22/21 don't seem to indicated any more injections are recommended. Please advise documented in this encounter Plan of Treatment Upcoming Encounters Date Type Specialty Care Team Description 06/25/2022 Telemedicine Neurology Kj Gloria MD PhD 1 [facility], Level [address] [place], [place] [address] (Wo rk) 09/06/2022 Procedure visit Pain Medicine Catalino Garrett M D [address] [facility] [address] [place] [address] (Wo rk) 09/21/2022 Office Visit Bariatrics Allen Thompson PA-C [address] [facility], [facility], [address] [place], [place] [address] (Wo rk) documented as of this encounter Visit Diagnoses Not on filedocumented in this encounter Care Teams General Manager [employer] Relationship Specialty Start Date End Date Shonda Sánchez, GIULIA PCP - General 03/14/21 01/31/[address] [place] [phone] Juma Herrera MD 12/08/18 [address] [place] [address] documented as of this encounter
--- OUTSIDE RECORDS SUMMARY | 2022-06-15 07:51 | XMS_ITS | Encounter Summary ---
:1975 Author Organization [facility] Address [address] [place] [address] Care Team Providers Name Role Phone Juma Herrera MD Unavailable Unavailable Shonda Sánchez NP Primary Care Provider Reason for Referral Radiology Services (Routine/Next Available) - Authorization Not Required Specialty Diagnoses / Procedures Referred By Contact Refer red To Contact Diagnoses Chronic right shoulder pain Jun Balbuena MD [facility] Procedures XR LUMBAR SPINE 2-3 VIEWS [address] [place] [address] Referral ID Status Reason Start Expiration Visits Visits Date Date Requested Authorized [id number] Authorization Not 09/26/2021 1 1 Required Reason for Visit Radiology Services (Routine/Next Available) - Authorization Not Required Specialty Diagnoses / Procedures Referred By Contact Refer red To Contact Diagnoses Chronic right shoulder pain Jun Balbuena MD [facility] Procedures XR LUMBAR SPINE 2-3 VIEWS [address] [place] [address] Referral ID Status Reason Start Expiration Visits Visits Date Date Requested Authorized [id number] Authorization Not 09/26/2021 1 1 Required Encounter Details Date Type Department Care Team Description 10/05/2021 Hospital Encounter Medical Center Chronic right shoulder Radiology Xray pain Outpatient - [address] [address] Social History Tobacco Use Types Packs/Day Years [...] Telemedicine Neurology Kj Gloria MD PhD 1 [facility], Level 2 [place] [address] (Wo rk) 09/06/2022 Procedure visit Pain Medicine Catalino Garrett M D [address] [place] [address] (Wo rk) 09/21/2022 Office Visit Bariatrics Allen Thompson PA-C [address] [facility], [facility], Level [address] [place], [place] [address] (Wo rk) documented as of this encounter Procedures Procedure Name Priority Date/Time Associated Diagnosis Comme nts XR LUMBAR SPINE 2-3 Routine 10/05/2021 12:42 Chronic right Res ults for this VIEWS EST shoulder pain procedure are in the results section. documented in this encounter Results XR LUMBAR SPINE 2-3 VIEWS (10/05/2021 12:42 EST) Anatomical Region Laterality Modality Spine Computed Radiography Specimen Impressions [facility] RADIOLOGY [facility] - 10/06/2021 10:44 EST 1. Status post L5-S1 posterior fusion without evidence of hardware failure. 2. Spinal stimulator as above. Narrative [facility] RADIOLOGY [facility] - 10/06/2021 10:44 EST XR LUMBAR SPINE [...] Organization Address City/State/ZIP Code Phon e Number [facility] documented in this encounter Visit Diagnoses Diagnosis Chronic right shoulder pain Pain in joint, shoulder region documented in this encounter Care Teams Supervisor Grower Relationship Specialty Start Date End Date Shonda Sánchez NP PCP - General 03/14/21 01/31/[address] [place] [phone] Juma Herrera MD 12/08/18 [address] [place] [address] documented as of this encounter
--- OUTSIDE RECORDS SUMMARY | 2022-06-15 07:51 | XMS_ITS | Encounter Summary ---
:1975 Author Organization [facility] Address [address] [place] [address] Care Team Providers Name Role Phone Juma Herrera MD Unavailable Unavailable Shonda Sánchez NP Primary Care Provider Encounter Details Date Type Department Care Team Description 07/05/2021 Ambulatory Pharmacy [facility] Dragan Rodriguez [facility] Ambulatory Pharmacy - [address] [facility] [address] [place], [place] [phone] Social History Tobacco Use Types Packs/Day [...] Telemedicine Neurology Kj Gloria MD PhD 1 [facility] 2 [place], [place] [address] (Wo rk) 09/06/2022 Procedure visit Pain Medicine Catalino Garrett M D [address] [place] [address] [address] [place] [address] (Wo rk) 09/21/2022 Office Visit Bariatrics Allen Thompson, ELISABETH 111 [facility], [facility], Level 5 [place], [place] [address] (Wo rk) documented as of this encounter Visit Diagnoses Not on filedocumented in this encounter Care Teams Remote Advisor Relationship Specialty Start Date End Date Shonda Sánchez NP PCP - General 03/14/21 01/31/[address] [place] [phone] Juma Herrera MD 12/08/18 [address] [place] [address] documented as of this encounter
--- OUTSIDE RECORDS SUMMARY | 2022-06-15 07:51 | XMS_ITS | Encounter Summary ---
:[address] [facility] Address [address] [place] [address] Care Team Providers Name Role Phone Juma Herrera MD Unavailable Unavailable Shonda Sánchez NP Primary Care Provider Encounter Details Date Type Department Care Team Description 05/17/2021 Hospital Encounter [facility] X ray [address] [place], [place] [phone] Social History Tobacco Use Types Packs/Day Years [...] 5 mg Take 2 Tabs by 0 02/201605/17/2022 immediate release tablet mouth every 4 [...] Telemedicine Neurology Kj Gloria MD PhD 1 [facility] Level 2 [place], [place] [address] (Jayjay anaya) 09/06/2022 Procedure visit Pain Medicine Catalino Garrett M D [address] [facility] [address] [place] [address] (Jayjay anaya) 09/21/2022 Office Visit Bariatrics Allen Thompson PA-C 111 [facility], [facility], Level [address] [place], [place] [address] (Jayjay anaya) documented as of this encounter Procedures Procedure Name Priority Date/Time Associated Comments Diagnosis PAIN CLINIC [place] Routine 05/17/2021 10:02 Results f or this SACROILIAC JOINT EDT procedure a re in INJECTION the results section. documented in this encounter Results PAIN CLINIC [place] SACROILIAC JOINT INJECTION (05/17/2021 10:02 EDT) Specimen Narrative 05/17/2021 10:02 EDT This is a non-reportable exam. documented in this encounter Visit Diagnoses Not on filedocumented in this encounter Care Teams Insulation Worker Furnace Installer Relationship Specialty Start Date End Date Shonda Sánchez NP PCP - General 03/14/21 01/31/[address] [place] [phone] Juma Herrera MD 12/08/18 [address] [place] [address] documented as of this encounter
--- OUTSIDE RECORDS SUMMARY | 2022-06-15 07:51 | XMS_ITS | Encounter Summary ---
:1975 Author Organization [facility] Address [address] [place] [address] Care Team Providers Name Role Phone Juma Herrera MD Unavailable Unavailable Shonda Sánchez NP Primary Care Provider Reason for Visit Reason Comments Follow-up Telemedicine Video Visit Encounter Details Date Type Department Care Team Description 06/27/2021 Telemedicine [facility] Kj Gloria, Melinda onic migraine Neurology - S PhD without aura without [place] 1 [facility] status migrainosus, [address] [facility] [place] [address] [place], Level 2 (Primary Dx) [phone] [place] [address] (Wo rk) Social History Tobacco Use [...] documented as of this encounter Progress Notes Kj Gloria MD PhD - 06/27/2021 1130 EDT Neurology Consult Follow Up Note Date of Service: 06/27/2021 PCP: Shonda Sánchez Follow up for: migraine [...] today's encounter visit: Kj Gloria MD PhD I spent a total of > 30 [...] a new patient evaluation via Zoom on 02/21/21. At that time, she reported daily headaches with severe headache ~ 15 days per month. I prescribed Emgality, but this was changed to Aimovig 70mg by her insurance, with the initial dose on 03/24/21. She has had 4 doses (3 months of coverage). She now has ~ 15 headache-free days per month. She has only had 3 to 4 really severe migraine attacks since starting it. She doesn't awakening with headaches every days. She not noticed any worsened constipation. You have no idea how happy I am. It's nice to be able to function, and I'm super grateful. Medications and Allergies: Outpatient Medications Marked as Taking for the 06/27/21 encounter (Telemedicine) with Kj Gloria MD PhD Medication Sig Dispense Refill ??? busPIRone (BUSPAR) 5 mg tablet Take 15 mg by mouth 2 times daily. ??? calcium carbonate/vitamin D3 (VITAMIN D-3 ORAL) Take by mouth. ??? cholecalciferol, Vitamin D3, 25 mcg (1,000 unit) tablet Take 1,000 Units by mouth daily. ??? cortisone acetate (CORTISONE IM) Inject [...] 0.5 mg by mouth at bedtime. ??? MAGNESIUM ORAL Take 500 mg by mouth daily. ??? MEDICAL MARIJUANA as needed. ??? methylphenidate (RITALIN SR; METADATE ER; METHYLIN ER) 20 mg SR tablet Take by mouth 2 times daily. Takes 20 mg every morning, 20 mg every afternoon, 10 mg every evening. ??? methylphenidate (RITALIN;METHYLIN) 5 mg tablet Take 10 mg by mouth 2 times daily. ??? multivitamins (THERAGRAN) Take 5 mL by mouth daily. ??? omeprazole (PRILOSEC) 20 mg capsule Take 2 Caps by mouth daily 60 Cap 3 ??? oxyCODONE (ROXICODONE) 5 mg immediate release tablet Take 2 Tabs by mouth every 4 hours Hold fornow while taking liquid form Daily Max: 60 mg ??? potassium chloride (KLOR-CON) 20 mEq packet Take 20 mEq by mouth daily. ??? pregabalin (LYRICA) 50 mg capsule Take 2 Caps by mouth 3 times daily. 180 Cap 3 ??? prochlorperazine (COMPAZINE) 10 mg tablet Take 1 Tab by mouth every 6 hours as needed for [id number] Tab 0 ??? SUMAtriptan Succinate 6 mg/0.5 [...] Root beer Assessment and Plan: Chronic migraine. Continue Aimovig 70mg Q 28 days, as the full benefits of the medication may not be fully evident. Keep headache record. Return to clinic 6 months. Consider increasing Aimovig dose to 140mg sc Q 28 days. Tia was seen today for follow-up and telemedicine video visit. Diagnoses and all orders for this visit: Chronic migraine without aura without status migrainosus, not intractable Kj Gloria MD PhD 06/27/2021 11:39 documented in this encounter Plan of Treatment Upcoming Encounters Date Type Specialty Care Team Description 06/25/2022 Telemedicine Neurology Kj Gloria MD PhD 1 [facility] Level 2 [place], [place] [address] (Jayjay anaya) 09/06/2022 Procedure visit Pain Medicine Catalino Garrett M D [address] [facility] [address] [place] [address] (Jayjay anaya) 09/21/2022 Office Visit Bariatrics Allen Thompson PA-C [address] [facility], [facility], Level [address] [place], [place] [address] (Jayjay anaya) documented as of this encounter Visit Diagnoses Diagnosis Chronic migraine without aura without st atus migrainosus, not intractable - Primary Chronic migraine without aura, without m ention of intractable migraine without mention of status migrainosus documented in this encounter Care Teams Marketing Operations Coordinator Relationship Specialty Start Date End Date Shonda Sánchez NP PCP - General 03/14/21 01/31/[address] [place] [phone] Juma Herrera MD 12/08/18 [address] [place] [address] documented as of this encounter
--- OUTSIDE RECORDS SUMMARY | 2022-06-15 07:51 | XMS_ITS | Encounter Summary ---
:1975 Author Organization [facility] Address [address] [place] [address] Care Team Providers Name Role Phone Juma Herrera MD Unavailable Unavailable Shonda Sánchez NP Primary Care Provider Encounter Details Date Type Department Care Team Description 11/22/2021 Ambulatory Pharmacy [facility] Dragan Rodriguez [facility] Ambulatory Pharmacy - [address] [facility] [address] [place], [place] [phone] Social History Tobacco Use Types Packs/Day [...] Telemedicine Neurology Kj Gloria MD PhD 1 [facility] Level 2 [place], [place] [address] (Wo rk) 09/06/2022 Procedure visit Pain Medicine Catalino Garrett M D [address] [facility] [address] [place] [address] (Wo rk) 09/21/2022 Office Visit Bariatrics Allen Thompson PALizettC 111 [facility], Level [address] [place] [address] (Wo rk) documented as of this encounter Visit Diagnoses Not on filedocumented in this encounter Care Teams Densitometer Reader Relationship Specialty Start Date End Date Shonda Sánchez NP PCP - General 03/14/21 01/31/[address] [place] [phone] Juma Herrera MD 12/08/18 [address] [place] [address] documented as of this encounter
--- OUTSIDE RECORDS SUMMARY | 2022-06-15 07:51 | XMS_ITS | Encounter Summary ---
:1975 Author Organization [facility] Address [address] [place] [address] Care Team Providers Name Role Phone Juma Herrera MD Unavailable Unavailable Shonda Sánchez NP Primary Care Provider Encounter Details Date Type Department Care Team Description 12/05/2021 Ancillary Procedure [facility] dorothy right shoulder Sports Medicine pain Program - Scout [facility] [place] [address] Social History Tobacco Use Types [...] Telemedicine Neurology Kj Gloria MD PhD 1 [facility] Level 2 [place], [place] [address] (Wo rk) 09/06/2022 Procedure visit Pain Medicine Catalino Garrett M D [address] [facility] [address] [place] [address] (Wo rk) 09/21/2022 Office Visit Bariatrics Allen Thompson PA-C 111 [facility], [facility], Level [address] [place], [place] [phone] (Wo rk) documented as of this encounter Procedures Procedure Name Priority Date/Time Associated Diagnosis Comme nts POC MSK US SHOULDER Routine 12/05/2021 15:16 Chronic right Res ults for this EDT shoulder pain procedure are in the results section. documented in this encounter Results POC MSK US SHOULDER (12/05/2021 15:16 EDT) Specimen Narrative [facility] POINT OF CARE - 12/05/2021 15:16 E DT This is a non-reportable exam. Performing Organization Address City/State/ZIP Code Phon e Number [facility] POINT OF CARE documented in this encounter Visit Diagnoses Diagnosis Chronic right shoulder pain Pain in joint, shoulder region documented in this encounter Care Teams Tank Shop Supervisor Relationship Specialty Start Date End Date Shonda Sánchez NP PCP - General 03/14/21 01/31/[address] [place] [address] Juma Herrera MD 12/08/18 [address] [place] [address] documented as of this encounter
--- OUTSIDE RECORDS SUMMARY | 2022-06-15 07:51 | XMS_ITS | Encounter Summary ---
:1975 Author Organization [facility] Address [address] [place] [address] Care Team Providers Name Role Phone Juma Herrera MD Unavailable Unavailable Shonda Sánchez NP Primary Care Provider Encounter Details Date Type Department Care Team Description 10/24/2021 Ambulatory Pharmacy [facility] Dragan Rodriguez [facility] Ambulatory Pharmacy - [address] [facility] [address] [place], [place] [phone] Social History Tobacco Use Types Packs/Day [...] MD PhD 1 [facility] Level 2 [place], [place] [address] (Wo rk) 09/06/2022 Procedure visit Pain Medicine Catalino Garrett M D [address] [facility] [address] [place] [address] (Wo rk) 09/21/2022 Office Visit Bariatrics Allen Thompson PALizettC 111 [facility], Level 5 [place], [place] [address] (Wo rk) documented as of this encounter Visit Diagnoses Not on filedocumented in this encounter Care Teams Photocomposing Machine Operator Relationship Specialty Start Date End Date Shonda Sánchez NP PCP - General 03/14/21 01/31/[address] [place] [phone] Juma Herrera MD 12/08/18 [address] [place] [address] documented as of this encounter
--- OUTSIDE RECORDS SUMMARY | 2022-06-15 07:51 | XMS_ITS | Encounter Summary ---
:1975 Author Organization [facility] Address [address] [place] [address] Care Team Providers Name Role Phone Juma Herrera MD Unavailable Unavailable Shonda Sánchez NP Primary Care Provider Reason for Visit Reason Comments Injections Prior Authorization (See Order Priority) - Authorization Not Required Specialty Diagnoses / Procedures Referred By Contact Refer red To Contact Orthopedic Surgery Diagnoses Chronic right shoulder pain Jun Balbuena [employer] [place] [phone] Referral ID Status Reason Start Expiration Visits Visits Date Date Requested Authorized [id number] Authorization Specialty 12/01/2021 1 1 Not Required Services Required Encounter Details Date Type Department Care Team Description 12/05/2021 Procedure visit [facility] Jun Balbuena Imping ement syndrome of shoulder, right (Primary Dx); Sports Medicine MD Isidro Osteoarthritis of right acromioclavicula r joint Program - [address] [phone] Social History Tobacco Use Types Packs/Day [...] encounter Progress Notes Jun Balbuena MD - 12/05/2021 1115 EDTAssociated Order(s): Medication Only Injection; Medication Only InjectionPost-Procedure Diagnose(s): Impingement syndrome of shoulder, right; Osteoarthritis of right acromioclavicular joint Chief Complaint Patient presents with ??? Right Shoulder - Injections SUBJECTIVE: Tia Rooney is a 46 y.o. female who present for an ultrasound guided injection into her right subacromial space and right AC joint. Patient has a diagnosis of chronic right [...] bandaged. The patient tolerated the procedure well. PROCEDURE NOTE: Right shoulder AC joint injection using musculoskeletal ultrasound After verbal consent given, area of superior aspect of shoulder was palpated and landmarks were noted, prepped with isopropyl alcohol. Under sterile conditions, AC joint was infused with 1 cc 2% lidocaine, 1 cc 0.5% marcaine and 1 cc 40 mg/cc kenalog without resistance. The needle tip was noted in the joint space. The joint capsule was noted to distend during injection. Cleansed with isopropyl alcohol and bandaged. The patient tolerated the procedure well. After care was reviewed including icing, use of NSAIDs prn and activity modification. Will follow up in 4 weeks. If she still has pain, we will target the right SC joint. I discussed all of the above verbally with patient, no barriers to understanding. The patient indicated understanding and agrees to the above plan. Jun Balbuena MD 12:27 12/05/2021 Procedure: Medication Only Injection on 12/05/2021 11:15 Medications: 3 mL bupivacaine (PF) 0.5%; 80 mg triamcinolone acetonide 40 mg/mL; 3 mL lidocaine 20 mg/mL (2 %) Medication Only Injection on 12/05/2021 11:15 Medications: 40 mg triamcinolone acetonide 40 mg/mL; 1 mL bupivacaine (PF) 0.5%; 1 mL lidocaine 20 mg/mL (2 %) documented in this encounter Plan of Treatment Upcoming Encounters Date Type Specialty Care Team Description 06/25/2022 Telemedicine Neurology Kj Gloria MD PhD 1 [facility], Level 2 [place], [place] [phone] (Wo rk) 09/06/2022 Procedure visit Pain Medicine Catalino Garrett M D [address] [facility] [address] [place] [address] (Wo rk) 09/21/2022 Office Visit Bariatrics Allen Thompson PA-C [facility], [facility], Level [address] [place], [place] [phone] (Wo rk) documented as of this encounter Procedures Procedure Name Priority Date/Time Associated Diagnosis Comme nts MEDICATION ONLY Routine 12/05/2021 11:15 Osteoarthritis of rig ht Results for this INJECTION EDT acromioclavicular joint proc edure are in the results section. MEDICATION ONLY Routine 12/05/2021 11:15 Impingement syndrome of Results for this INJECTION EDT shoulder, right procedure ar e in the results section. documented in this encounter Results Medication Only Injection (12/05/2021 11:15 EDT) Narrative [facility] POINT OF CARE - 12/05/2021 11:15 E Jun Ruvalcaba MD ? 12/05/2021 12:38 Medication Only Injection on 12/05/2021 11 :15 Medications: 40 mg triamcinolone acetoni de 40 mg/mL; 1 mL bupivacaine (PF) 0.5%; 1 mL lidocaine 20 mg/mL (2 %) Performing Organization Address City/State/ZIP Code Phon e Number [facility] POINT OF CARE Medication Only Injection (12/05/2021 11:15 EDT) Narrative [facility] POINT OF CARE - 12/05/2021 11:15 E Jun Ruvalcaba MD ? 12/05/2021 12:38 Medication Only Injection on 12/05/2021 11 :15 Medications: 3 mL bupivacaine (PF) 0.5%; 80 mg triamcinolone acetonide 40 mg/mL; 3 mL lidocaine 20 mg/mL (2 %) Performing Organization Address City/State/ZIP Code Phon e Number [facility] POINT OF CARE documented in this encounter Visit Diagnoses Diagnosis Impingement syndrome of shoulder, right - Primary Osteoarthritis of right acromioclavicula r joint documented in this encounter Administered Medications Inactive Administered Medications - up to 3 most recent administrations Medication Order MAR Action Action Date Dose Rate Site bupivacaine (PF) (MARCAINE) 0.5% Given 12/05/2021 11:15 EDT 1 mL injection 1 mL 1 mL, intra-articular, Once PRN Procedure, 1 dose, Starting on 12/05/21 at 1115, Until Tu12/05/21 at 1115, Routine bupivacaine (PF) (MARCAINE) 0.5% injecti on 3 mL Given 12/05/2021 11:15 EDT 3 mL 3 mL, intra-articular, Once PRN Procedure, 1 dose, Starting on 12/05/21 at 1115, Until 12/05/21 at 1115, Routine lidocaine 20 mg/mL (2 %) injection 1 mL Given 12/05/2021 11:15 EDT 1 mL 1 mL, other, Once PRN Procedure, 1 dose, Starting on 12/05/21 at 1115, Until 12/05/21 at 1115, Routine lidocaine 20 mg/mL (2 %) injection 3 mL Given 12/05/2021 11:15 EDT 3 mL 3 mL, other, Once PRN Procedure, 1 dose, Starting on 12/05/21 at 1115, Until 12/05/21 at 1115, Routine triamcinolone acetonide (KENALOG-40) injection Given 022 11:15 EDT 40 mg 40 mg 40 mg, other, Once PRN Procedure, 1 dose, Starting on 12/05/21 at 1115, Until 12/05/21 at 1115, Routine triamcinolone acetonide (KENALOG-40) injection Given 022 11:15 EDT 80 mg 80 mg 80 mg, other, Once PRN Procedure, 1 dose, Starting on 12/05/21 at 1115, Until Tue 22 at 1115, Routine documented in this encounter Care Teams Metal Buildings Assembler Relationship Specialty Start Date End Date Shonda Sánchez, GIULIA PCP - General 03/14/21 01/31/[address] [place] [address] Juma Herrera MD 12/08/18 [address] [place] [address] documented as of this encounter
--- OUTSIDE RECORDS SUMMARY | 2022-06-15 07:51 | XMS_ITS | Encounter Summary ---
:1975 Author Organization [facility] Address [address] [place] [address] Care Team Providers Name Role Phone Juma Herrera MD Unavailable Unavailable Shonda Sánchez NP Primary Care Provider Encounter Details Date Type Department Care Team Description 06/22/2021 Travel Social History Tobacco Use Types Packs/Day [...] Neurology Kj Gloria MD PhD 1 [facility] Level 2 [place], [place] [phone] (Wo rk) 09/06/2022 Procedure visit Pain Medicine Catalino Garrett M D [address] [facility] [address] [place] [address] (Wo rk) 09/21/2022 Office Visit Bariatrics Allen Thompson PA-C 111 [facility], [facility], [address] [place], [place] [address] (Wo rk) documented as of this encounter Visit Diagnoses Not on filedocumented in this encounter Care Teams Roof Slater Relationship Specialty Start Date End Date Shonda Sánchez, GIULIA PCP - General 03/14/21 01/31/[address] [place] [phone] Juma Herrera MD 12/08/18 [address] [place] [address] documented as of this encounter
--- OUTSIDE RECORDS SUMMARY | 2022-06-15 07:51 | XMS_ITS | Encounter Summary ---
:1975 Author Organization [facility] Address [address] [place] [address] Care Team Providers Name Role Phone Juma Herrera MD Unavailable Unavailable Shonda Sánchez NP Primary Care Provider Encounter Details Date Type Department Care Team Description 06/06/2021 Ambulatory Pharmacy [facility] Dragan Rodriguez [facility] Ambulatory Pharmacy - [address] [facility] [address] [place], [place] [phone] Social History Tobacco Use Types Packs/Day [...] Telemedicine Neurology Kj Gloria MD PhD 1 [facility] 2 [place], [place] [address] (Wo rk) 09/06/2022 Procedure visit Pain Medicine Catalino Garrett M D [address] [place] [address] [address] [place] [address] (Wo rk) 09/21/2022 Office Visit Bariatrics Allen Thompson, ELISABETH 111 [facility], Level 5 [place], [place] [address] (Wo rk) documented as of this encounter Visit Diagnoses Not on filedocumented in this encounter Care Teams Activities Officer Relationship Specialty Start Date End Date Shonda Sánchez NP PCP - General 03/14/21 01/31/[address] [place] [phone] Juma Herrera MD 12/08/18 [address] [place] [address] documented as of this encounter
--- OUTSIDE RECORDS SUMMARY | 2022-06-15 07:51 | XMS_ITS | Encounter Summary ---
:1975 Author Organization [facility] Address [address] [place] [address] Care Team Providers Name Role Phone Juma Herrera MD Unavailable Unavailable Shonda Sánchez NP Primary Care Provider Reason for Referral Radiology Services (Routine/Next Available) - Authorization Not Required Specialty Diagnoses / Procedures Referred By Contact Refer red To Contact Diagnoses Chronic right shoulder pain Jun Balbuena MD [facility] Procedures XR SHOULDER RIGHT 2 OR MORE VIEWS [address] [place] [address] Referral ID Status Reason Start Expiration Visits Visits Date Date Requested Authorized [id number] Authorization Not 09/05/2021 1 1 Required Encounter Details Date Type Department Care Team Description 09/05/2021 Orders Only [facility] Jun Balbuena Chronic r ight shoulder Sports Medicine MD Isidro pain (Primary Dx) Program - [address] Maldonado [place], [facility] [phone] Social History Tobacco Use Types [...] Telemedicine Neurology Kj Gloria MD PhD 1 [facility] 2 [place] [address] (Wo rk) 09/06/2022 Procedure visit Pain Medicine Catalino Garrett M D [address] [facility] [address] [place] [address] (Wo rk) 09/21/2022 Office Visit Bariatrics Allen Thompson PA-C [address] [facility] venue [facility], Level 5 [place], [place] [address] (Wo rk) documented as of this encounter Results XR SHOULDER RIGHT 2 OR MORE VIEWS (09/12/2021 14:33 EST) Anatomical Region Laterality Modality Right Computed Radiography Specimen Impressions [facility] - 09/12/2021 16:51 EST FINDINGS / IMPRESSION: * ??Mild AC joint degenerative changes. * ??No significant glenohumeral osteophy te formation. * ??Normal mineralization without fractu re. Narrative [facility] - 09/12/2021 16:51 EST EXAM/TECHNIQUE: 09/12/2021 2:15 [...] Organization Address City/State/ZIP Code Phon e Number [facility] [place] documented in this encounter Visit Diagnoses Diagnosis Chronic right shoulder pain - Primary Pain in joint, shoulder region Chronic right shoulder pain Pain in joint, shoulder region documented in this encounter Care Teams Shellfish Dredge Operator Relationship Specialty Start Date End Date Shonda Sánchez NP PCP - General 03/14/21 01/31/[address] [place] [address] Juma Herrera MD 12/08/18 [address] [place] [address] documented as of this encounter
--- OUTSIDE RECORDS SUMMARY | 2022-06-15 07:51 | XMS_ITS | Encounter Summary ---
:1975 Author Organization [facility] Address [address] [place] [address] Care Team Providers Name Role Phone Juma Herrera MD Unavailable Unavailable Shonda Sánchez NP Primary Care Provider Reason for Referral Radiology Services (Routine/Next Available) - Authorization Not Required Specialty Diagnoses / Procedures Referred By Contact Refer red To Contact Diagnoses Back pain, unspecified back location, unspecified back pain laterality, unspecified chronicity Kj Child MD [facility] Procedures XR ENTIRE SPINE 2-3 VIEWS [address] [place] [address] Referral ID Status Reason Start Expiration Visits Visits Date Date Requested Authorized [id number] Authorization Not 1 1 Required 1 Reason for Visit Radiology Services (Routine/Next Available) - Authorization Not Required Specialty Diagnoses / Procedures Referred By Contact Refer red To Contact Diagnoses Back pain, unspecified back location, unspecified back pain laterality, unspecified chronicity Kj Child MD [facility] Procedures XR ENTIRE SPINE 2-3 VIEWS [address] [place] [address] Referral ID Status Reason Start Expiration Visits Visits Date Date Requested Authorized [id number] Authorization Not 1 1 Required 1 Encounter Details Date Type Department Care Team Description 07/18/[address] [facility] Xray Back pain, unspecified [address], [place], [place] unspeci fied back pain [address] laterality, unspecified [phone] chronicity Social History Tobacco Use Types Packs/Day Years [...] 5 mg Take 2 Tabs by 0 /0 02/201605/17/2022 immediate release tablet mouth every 4 [...] Neurology Kj Gloria MD PhD 1 [facility], Level 2 [place], [place] [address] (Wo rk) 09/06/2022 Procedure visit Pain Medicine Catalino Garrett M D [address] [facility] [address] [place] [address] (Wo rk) 09/21/2022 Office Visit Bariatrics Allen Thompson PA-C 111 [facility] venue [facility], [facility], Level [address] [place], [place] [address] (Wo rk) documented as of this encounter Procedures Procedure Name Priority Date/Time Associated Diagnosis Comme nts XR ENTIRE SPINE 2-3 Routine 07/18/2021 14:18 Back pain, Resu lts for this VIEWS EST unspecified back procedure a re in location, the results unspecified back section. pain laterality, unspecified chronicity documented in this encounter Results XR ENTIRE SPINE 2-3 VIEWS (07/18/2021 14:18 EST) Anatomical Region Laterality Modality Spine Computed Radiography Specimen Impressions [facility] - 07/19/2021 13:25 EST Findings/Impression: Very mild levocurvature of the thoracic spine and dextrocurvature of the lumbar spine. Grade 1 anterolisthesis of L3 on L4. Otherwise, alignment on the lateral view is normal. Anterior fusion hardware a t C6-7 and posterior fusion hardware at L5-S1. No evidence of hardware complication. A spinal stimulator device projects over the soft tissues of the lower back. Surgical clips project over the right up per quadrant. Vertebral body heights are normal. No severe disc height loss. Narrative [facility] - 07/19/2021 13:25 EST XR ENTIRE SPINE 2-3 VIEWS ??07/18/2021 1:30 PM Clinical History/Comments: back pain. Technique: AP and lateral views of the entire spine Comparison: None Procedure Note Marques Roper MD - 07/19/2021 XR ENTIRE SPINE 2-3 VIEWS 07/18/2021 1:3 0 PM Clinical History/Comments: back pain. Technique: AP and lateral views of the entire spine Comparison: None IMPRESSION Findings/Impression: Very mild levocurvature of the thoracic spine and dextrocurvature of the lumbar spine. Grade 1 anterolisthesis of L3 on L4. Otherwise, alignment on the lateral view is normal. Anterior fusion hardware at C6-7 and posterior fusion hardware at L5-S1. No evidence of hardware complication. A spinal stimulator device projects over the soft tissues of the lower back. Surgical clips project over the right upper quadrant. Vertebral body heights are normal. No severe disc heigh t loss. Performing Organization Address City/State/ZIP Code Phon e Number [facility] documented in this encounter Visit Diagnoses Diagnosis Back pain, unspecified back location, un specified back pain laterality, unspecified chronicity documented in this encounter Care Teams Pan Devulcanizer Helper Relationship Specialty Start Date End Date Shonda Sánchez NP PCP - General 03/14/21 01/31/[address] [place] [address] Juma Herrera MD 12/08/18 [address] [facility] [place] [address] documented as of this encounter
--- OUTSIDE RECORDS SUMMARY | 2022-06-15 07:51 | XMS_ITS | Encounter Summary ---
:[address] [facility] Address [address] [place] [address] Care Team Providers Name Role Phone Juma Herrera MD Unavailable Unavailable Shonda Sánchez NP Primary Care Provider Reason for Visit Reason Onset Date Comments Prior Auth, Medication 06/08/2021 Encounter Details Date Type Department Care Team Description 06/08/2021 Telephone [facility] Kj Gloria Pri or Auth, Medication Neurology - S Lorna bergeron MD PhD [address] [phone] [facility] 2 [place] [phone] (Wo rk) Social History Tobacco Use Types [...] this encounter Miscellaneous Notes Telephone Encounter - Mica Jackson - 06/08/2021 1537 EDT Prior Authorization Submission Process Current PA doesn't until 09/01/21 documented in this encounter Plan of Treatment Upcoming Encounters Date Type Specialty Care Team Description 06/25/2022 Telemedicine Neurology Kj Gloria MD PhD 1 [facility] Level 2 [place], [place] [address] (Wo rk) 09/06/2022 Procedure visit Pain Medicine Catalino Garrett M D [address] [facility] [address] [place] [address] (Jayjay rk) 09/21/2022 Office Visit Bariatrics Allen Thompson, ELISABETH 111 [facility], Level [address] [place], [place] [address] (Jayjay rk) documented as of this encounter Visit Diagnoses Not on filedocumented in this encounter Care Teams School Commissioner Relationship Specialty Start Date End Date Shonda Sánchez NP PCP - General 03/14/21 01/31/[address] [place] [phone] Juma Herrera MD 12/08/18 [address] [place] [address] documented as of this encounter
--- OUTSIDE RECORDS SUMMARY | 2022-06-15 07:51 | XMS_ITS | Encounter Summary ---
:1975 Author Organization [facility] Address [address] [place] [address] Care Team Providers Name Role Phone Juma Herrera MD Unavailable Unavailable Shonda Sánchez NP Primary Care Provider Reason for Visit Reason Comments Pain Encounter Details Date Type Department Care Team Description 07/18/2021 Office Visit [facility] Kj Child in, unspecified Spine Program - Moises Kovacs MD back location, [facility] [address] unspecified back pain So [facility], [facility], [address] [place] [phone] unspecified chronicity [phone] (Primary Dx) (Work) Social History Tobacco Use Types Packs/Day Years [...] as of this encounter Progress Notes Kj Child MD - 07/18/2021 0910 EST Problem: 1. Neck and right arm pain A. C5-6 ACDF 2. Low back pain A. L5-S1 decompression 1999 B. L5-S1 decompression fusion 2006 3. Obesity 4. History of narcotic addiction A. Sobriety x5 years 5. PTSD 6. Bipolar disorder Subjective: 46-year-old woman with the above medical problems who notes that she has been having discomfort throughout her neck shoulder blade and arm with numbness and tingling. She describes pain in the cervicothoracic junction along the medial border of her scapula and then involving the entire shoulder blade itself and particular pain along this clavicle itself at the sternoclavicular joint as well as the AC joint and along the path of the clavicle. She also has pain with some viselike pain around her brachium and then pain into the thumb index and long finger. These are symptoms that are similar to what she had previously at C6 from her prior to her C5-6 ACDF. She is having neck pain and arm pain for many years has been seen by massage physical therapy has seen Starr Hart and got subacromial injections which were helpful postural training has been helpful. She also complains of low back discomfort centralized in the back with no radiation. Objective: Tender to palpation over a prominent right sternoclavicular joint and acromioclavicular joint with no fluctuance or erythema but significant tenderness. She has tenderness to palpation alongthe medial border of her scapula with no adenopathy or masses. There are no supraclavicular adenopathy or masses. She does have interscalene tenderness. 5/5 deltoid internal X rotation bicep tricep wrist flexion extension finger abduction. Negative Tinel's at the wrist and elbow 5/5 EHL tib ant peroneal gastroc Quad Ham psoas. Negative straight leg raising X-ray: Full-length PA and lateral demonstrate multiple levels of loss of disc space height osteophyte formation across multiple bodies from cervical thoracic and lumbar spine. Her overall coronal and sagittal alignment is well-maintained. She does have an L3 pars defect which is unchanged from previous films. L5-S1 fusion shows her implants to be intact fusion consolidated. C5-6 ACDF is solid. There are no alignment abnormalities. Assessment woman on narcotics has no evidence of myelopathy or radiculopathy in her upper or lower extremities significant tenderness around what appear to be arthritic AC and's SC joints. She could have an element of carpal tunnel syndrome but I do not find any direct evidence of myelopathy or her rad iculopathy. Discussed the options of ongoing exercise program to optimize her postural training periscapular strength we discussed other options including TENS unit or consideration of further injections around the clavicle itself and she wished to pursue the following plan Plan: 1. Physical therapy for postural training periscapular strengthening 2. TENS unit 3. Appointment with Dr. Jun Gutierrez for evaluation of sternoclavicular joint and possibility of injections per the patient's request documented in this encounter Plan of Treatment Upcoming Encounters Date Type Specialty Care Team Description 06/25/2022 Telemedicine Neurology Kj Gloria MD PhD 1 [facility], Level 2 [place], [place] [address] (Jayjay anaya) 09/06/2022 Procedure visit Pain Medicine Catalino Garrett M D [address] [facility] [address] [place] [address] (Jayjay anaya) 09/21/2022 Office Visit Bariatrics Allen Thompson PA-C [address] [place], [place] [address]ilion, Level [address] [place], [place] [phone] (Wo rk) documented as of this encounter Visit Diagnoses Diagnosis Back pain, unspecified back location, un specified back pain laterality, unspecified chronicity - Primary documented in this encounter Care Teams County Agricultural Agent Relationship Specialty Start Date End Date Shonda Sánchez NP PCP - General 03/14/21 01/31/[address] [place] [phone] Juma Herrera MD 12/08/18 [address] [place] [address] documented as of this encounter
--- OUTSIDE RECORDS SUMMARY | 2022-06-15 07:51 | XMS_ITS | Encounter Summary ---
:[address] [facility] Address [address] [place] [address] Care Team Providers Name Role Phone Juma Herrera MD Unavailable Unavailable Shonda Sánchez NP Primary Care Provider Encounter Details Date Type Department Care Team Description 04/05/2021 Travel Social History Tobacco Use Types Packs/Day [...] Telemedicine Neurology Kj Gloria MD PhD 1 [facility] Level 2 [place], [place] [phone] (Wo rk) 09/06/2022 Procedure visit Pain Medicine Catalino Garrett M D 62 [facility] [address] [place] [address] (Wo rk) 09/21/2022 Office Visit Bariatrics Allen Thompson PA-C 111 [facility], [facility], Level [address] [place], [place] [address] (Wo rk) documented as of this encounter Visit Diagnoses Not on filedocumented in this encounter Care Teams Pbx Operator Relationship Specialty Start Date End Date Shonda Sánchez, GIULIA PCP - General 03/14/21 01/31/[address] [place] [phone] Juma Herrera MD 12/08/18 [address] [place] [address] documented as of this encounter
--- OUTSIDE RECORDS SUMMARY | 2022-06-15 07:51 | XMS_ITS | Encounter Summary ---
:1975 Author Organization [facility] Address [address] [place] [address] Care Team Providers Name Role Phone Juma Herrera MD Unavailable Unavailable Shonda Sánchez NP Primary Care Provider Encounter Details Date Type Department Care Team Description 05/12/2021 Ambulatory Pharmacy [facility] Dragan Rodriguez [facility] Ambulatory Pharmacy - [address] [facility] [address] [place], [place] [phone] Social History Tobacco Use Types Packs/Day [...] PhD 1 [facility] Level 2 [place], [place] [phone] (Wo rk) 09/06/2022 Procedure visit Pain Medicine Catalino Garrett M D 62 [facility] [address] [place] [address] (Wo rk) 09/21/2022 Office Visit Bariatrics Allen Thompson, PALizettC 111 [facility], Level 5 [place], [place] [address] (Wo rk) documented as of this encounter Visit Diagnoses Not on filedocumented in this encounter Care Teams Small Engine Technician Relationship Specialty Start Date End Date Shonda Sánchez NP PCP - General 03/14/21 01/31/[address] [place] [phone] Juma Herrera MD 12/08/18 [address] [place] [address] documented as of this encounter
--- OUTSIDE RECORDS SUMMARY | 2022-06-15 07:51 | XMS_ITS | Encounter Summary ---
:1975 Author Organization [facility] Address [address] [place] [address] Care Team Providers Name Role Phone Juma Herrera MD Unavailable Unavailable Shonda Sánchez NP Primary Care Provider Reason for Referral Prior Authorization (See Order Priority) - Authorization Not Required Specialty Diagnoses / Procedures Referred By Contact Refer red To Contact Orthopedic Surgery Diagnoses Chronic right shoulder pain Jun Balbuena Tilley Sports MD [facility] [address] [place], [place] [address] [place] [phone] Referral ID Status Reason Start Expiration Visits Visits Date Date Requested Authorized [id number] Authorization Specialty 12/01/2021 1 1 Not Required Services Required Question Answer Reason for Request: RIGHT SHOULDER USG SA & AC I NJECTIONS Comments The purpose of this request is to inform precertification staff that the requested service needs to be reviewed for prior-a uthorization. Encounter Details Date Type Department Care Team Description 12/01/2021 Orders Only [facility] Jun Balbuena r ight shoulder Sports Medicine MD Isidro pain (Primary Dx) Program - [address] [place], [place] [address] [address] [facility] [phone] Social History Tobacco Use Types [...] Telemedicine Neurology Kj Gloria MD PhD 1 [facility] 2 [place], [place] [phone] (Jayjay anaya) 09/06/2022 Procedure visit Pain Medicine Catalino Garrett M D [address] [facility] [address] [place] [address] (Jayjay anaya) 09/21/2022 Office Visit Bariatrics Allen Thompson, ELISABETH 111 [facility] venue [facility], [facility], Level 5 [place], [place] [address] (Jayjay anaya) Scheduled Referrals Name Type Priority Associated Order Schedule Diagnoses AMB CONS/FOLLOW UP Outpatient Routine/Next Chronic right Expected : IN CLINIC PROCEDURES Referral Available shoulder pain 2021 PRIOR AUTHORIZATION (Approxi jose guadalupe), REQUEST Expires: 12/01/2022 documented as of this encounter Results POC MSK US SHOULDER (12/05/2021 15:16 EDT) Specimen Narrative [facility] POINT OF CARE - 12/05/2021 15:16 E DT This is a non-reportable exam. Performing Organization Address City/State/ZIP Code Phon e Number [facility] documented in this encounter Visit Diagnoses Diagnosis Chronic right shoulder pain - Primary Pain in joint, shoulder region Chronic right shoulder pain Pain in joint, shoulder region documented in this encounter Care Teams Outgoing Inspector Relationship Specialty Start Date End Date Shonda Sánchez NP PCP - General 03/14/21 01/31/[address] [place] [address] Juma Herrera MD 12/08/18 [address] [place] [address] documented as of this encounter
--- OUTSIDE RECORDS SUMMARY | 2022-06-15 07:51 | XMS_ITS | Encounter Summary ---
:1975 Author Organization [facility] Address [address] [place] [address] Care Team Providers Name Role Phone Juma Herrera MD Unavailable Unavailable Shonda Sánchez NP Primary Care Provider Reason for Referral PT/OT/ST (Routine/Next Available) - Closed Specialty Diagnoses / Procedures Referred By Contact Refer red To Contact Diagnoses Right anterior shoulder pain Catalino Garrett MD [address] [facility] [address] [place] [address] Referral ID Status Reason Start Date Expiration Date Visits V isits Requested Authorized [id number] Closed Specialty 05/17/2021 1 1 Services Required Question Answer Reason for Request: shoulder, clavicle, anterior chest pain following hitting base of neck. No fx/dislocation on r adiograph. Hx of RTC tear on imaging remotely. Please eval and tr eat. Reason for Visit Reason Comments Pain Office Procedure (Routine) - Specialty Report Received Specialty Diagnoses / Procedures Referred By Contact Refer red To Contact Pain Medicine Diagnoses Sacroiliitis, not elsewhere classified (HCC-CMS) Pain in right knee Other cervical disc degeneration, unspecified cervical region repeat si joint injection [facility] Catalino Garrett MD Procedures SC INJECT SI JOINT ARTHRGRPHY&/ANES/STEROID W/IMAGE PROCEDURE SHORT Jemal [address] [email or web address] [place], [place] [address] [address] [place] [address] Phone: Fax: Referral ID Status Reason Start Date Expiration Date Visits V isits Requested Authorized [id number] Specialty 1 1 Report Received Encounter Details Date Type Department Care Team Description 05/17/2021 Procedure visit [facility] - Catalino Garrett Sa croiliitis ([facility]) (Primary Dx); [facility] Chronic pain of right knee; [facility] [address] [facility] DDD (degenerative disc disease), cervica l; Interventional Pain [address] Right anterior shoulder pain 62 [facility] [address] Maldonado Guillen [place], [place] [address] [place], [place] [phone] Social History Tobacco Use Types Packs/Day [...] / COVID-19? documented as of this encounter Last Filed Vital Signs Vital Sign Reading Time Taken Comments Blood Pressure 137/67 05/17/2021 0946 EDT Pulse 75 05/17/2021 0946 EDT Temperature 35.7 ??C (96.2 ??F) 05/17/2021 0858 EDT Respiratory Rate 16 05/17/2021 0858 EDT Oxygen Saturation 98% 05/17/2021 0858 EDT Inhaled Oxygen Concentration - - Weight [...] as of this encounter Patient Instructions Patient InstructionsAlbina Cain RN - 05/17/2021 9:30 EDT [facility] [place] [phone] Patient Instructions You have had your bilateral Sacroiliac Joint Injection. The purpose of this procedure has [...] immediately. ??? If you develop increasingly severe back pain, continued numbness or weakness of the legs or changes in your bladder or bowel functions, please call our office immediately. Instructions for follow-up If you have any questions about your block, please call The prep that was used today is called DuraPrep. It contains Iodine and Alcohol and leaves an orangefilm on your skin. Per the manufacturers instructions Duraprep film is recommended to be left on the skin post-operatively for continued protection. The remaining film will gradually wear away. Please feel free to contact our office if you have any questions about your injection site. Patient Education Topic: Method: Handout and Verbal Taught to: Patient Barriers: None Outcomes: independent and verbalized understanding ALBINA CAIN RN documented in this encounter Progress Notes Albina Cain RN - 05/17/2021 0930 EDT ATTENTION: This Checklist should be reviewed with the patient, provider, nurse/MA, and instrument repair technician in the room prior to local anesthetic administration. Site marking is to be done prior to patient being put in to position, preferably when initial exam is done. Sterile field, meds, abd flouro images should be prepared prior to the FINAL VERIFICATION/TIME-OUT. All activity in the room will cease so all team members participate in the surgical brief and have meaningful communication. The Attending is responsible for leading the final verification/goldenmoment process. The Nurse/MA will have in her possession the signed consent and the checklist when the surgical pause is performed so written and verbal verification are concluded to be in agreement. [Verified] Patient identifier #1: Full Name [Verified] Patient Identifier #2: Date of [Verified] Allergy to iodine, steroids, local anesthetics, band-aids? [Verified] Location of pain: Patient response: Left vs Right; cervical, thoracic, lumbar, etc. (verified written on consent) [Verified] Site marked [Verified] Safety devices in place: Grounding pad; X-rays available. [Verified] Consent signed in chart [Verified] Consented procedure matches scheduled procedure. olf, Catalino Brown MD - 05/17/2021 0930 EDT Patient Name: Tia Rooney : 1975 Date of Service: 05/17/2021 Requesting physician: Dr. Herrera Sales Representative Door To Door: Catalino Garrett MD Underwriting Consultant: Dr. Saldaña Procedure: Diagnostic and Therapeutic sacroiliac joint injection bilateral Interval History: As stated prev has a history of right L5-S1 discectomy and decompression (1999) followed by L5-S1 decompression and fusion (2006). She has failed physical therapy and chiropractor care. She states thepain is below her surgical scar. She points to her bilateral buttock region. Pain is worse after she works for 3-4 hours,.The patient reports no recent changes in the character,quality, or distribution of the pain. There are no recent onset of new associated symptoms such as changes in strength, sensation, or bladder control. All previous medical records including current medications, anticoagulation status, any signs of current infection, and new imaging were reviewed. Although her YSABEL helped significantly for posterior neck pain, she still has anterior R shoulder and clav pain after hitting her neck shoulder a few months ago. X-rays negative. Knee pain still improved with walking up stairs and overall improved mobility with steroid injections) Injection History: 05/17/2021: sacroiliac joint injection bilateral 04/05/2021: cervical epidural steroid injection at C6C7 - 80% improvement in posterior neck pain. Continued pain at shoulder and clavicle on right 03/20/2021: intra-articularR knee??joint injection w monovisc - helpful with walking up stairs and improving mobility 01/12/2021: sacroiliac joint injection bilateral??- not sure if it offered any improvement 12/19/20: f/u discuss R knee pain 11/17/20: C6C7 YSABEL - 80% improvement for 2 months, starting to return 11/06/19: b/l SIJ inj 90% improvement in LBP x3 months 07/27/19: b/l SI Joint inj - 90% improvement in LBP x 3 months 01/28/19: C6C7 CUAUHTEMOC - 80% for 9 months 09/15/18: C6C7 CUAUHTEMOC - 80% relief for 3 months ??hx of multiple b/l SIJ injections going back to 2013 L5-S1 decompression and fusion (2006) Allergies: Allergies Allergen Reactions ??? Adhesive Other (See Comments) Skin irritation, paper tape ok ??? Bee Sting [Hymenoptera Allergenic Extract] Swelling Fever and vomiting ??? Codeine Hives and Nausea And Vomiting ??? Other - See Comments Nausea And Vomiting Root beer Current Outpatient Medications on File Prior to Visit Medication Sig Dispense Refill ??? busPIRone (BUSPAR) 5 mg tablet Take 15 mg by mouth 2 times daily. ??? calcium carbonate/vitamin D3 (VITAMIN D-3 ORAL) Take by mouth. ??? cholecalciferol, Vitamin D3, 25 mcg (1,000 unit) tablet Take 1,000 Units by mouth daily. ??? cortisone acetate (CORTISONE IM) Inject 1 Dose into the muscle every 3 months. (Patient not taking: Reported on 04/05/2021) ??? diphenhydrAMINE-acetaminophen 25-500 mg tablet Take 1 Tablet by mouth at bedtime as needed. (Patient not taking: Reported on 03/20/2021) ??? duloxetine (CYMBALTA) 30 mg capsule Take 90 mg by mouth daily Take with 60mg cap to =90mg dose ??? erenumab-aooe (AIMOVIG AUTOINJECTOR) 70 mg/mL auto-injector Inject 70 mg into the skin every 28 days. (Patient not taking: Reported on 05/17/2021) 3 Syringe 3 ??? LORazepam (ATIVAN) 0.5 mg tablet Take 0.5 mg by mouth at bedtime (Patient not taking: Reported on 04/05/2021) ??? MAGNESIUM ORAL Take 500 mg by mouth daily. ??? MEDICAL MARIJUANA as needed. (Patient not taking: Reported on 04/05/2021) ??? methylphenidate (RITALIN SR; METADATE ER; METHYLIN [...] liquid form Daily Max: 60 mg ??? pediatric multivitamin (JUAN CHEW VIT) chewable tablet Take 1 Tab by mouth daily Hold for 2 weeks (Patient not taking: Reported on 03/20/2021) ??? potassium chloride (KLOR-CON) 20 mEq packet Take 20 mEq by mouth daily. ??? pregabalin (LYRICA) 50 mg capsule Take 2 Caps by mouth 3 times daily. 180 Cap 3 ??? prochlorperazine (COMPAZINE) 10 mg tablet Take 1 Tab by mouth every 6 hours as needed for Nausea(Patient not taking: Reported on 04/05/2021) 60 Tab 0 ??? rizatriptan (MAXALT) 10 mg tablet Take 10 mg by mouth once as needed. May repeat in 2 hours if needed (Patient not taking: Reported on 02/21/2021) ??? SUMAtriptan Succinate 6 mg/0.5 mL cartridge Inject 6 mg into the skin as needed (migraine). Takeas directed. (Patient not taking: Reported on 05/17/2021) 6 mL 11 No current facility-administered medications on file prior to visit. Review of Systems: Negative for any fever, chills, nausea/vomiting, headaches, chest pain, palpitations, shortness of breath, bladder/bowel incontinence. No easy bruising, bleeding, anti-coagulation or known recent infections. Physical Exam: Vitals: BP (!) 142/71 Pulse 78 Temp 35.7 ??C (96.2 ??F) (Tympanic) Resp 16 SpO2 98% General: Patient is alert and oriented, no acute distress Lungs: symmetric chest rise, no evidence of labored breathing Skin: clear, warm, dry and intact and no rashes, bruises or petechiae noted Musculoskeletal: Gait: patient ambulates independently, steady gait, no obvious scoliosis or abnormal curvature of the spine Lumbar Spine: tenderness elicited upon palpation surgical scar Sacroiliac Joint: positive tenderness upon palpation of SI joint bilateral, positive SUMIT test b/l,pos compression test b/l, pos distraction test b/l Cerv spine: ttp lower c-spine with nl rom and full strength in b/l UE Lower Extremity: strength 5/5 in all keenan muscle groups b/l, R knee ttp with painful active ROM Assessment: 1. Sacroiliitis (HCC-CMS) 2. Chronic pain of right knee 3. DDD (degenerative disc disease), cervical 4. Right anterior shoulder pain Plan: Ms. Tia Rooney is a 45 y.o. female that presents to the pain clinic to undergo sacroiliac joint injection in regards to her chronic back pain. All risks, benefits, and alternatives were thoroughly explained to Ms. Tia Rooney who verbally communicated understanding of the management plan. Proceed with sacroiliac joint injection bilateral. Ordered external PT referral for shoulder Followup: next available f/u Procedure: The patient gave informed written consent to proceed with this procedure following a detailed discussion of the risks and benefits associated with sacroiliac joint injection including but not limited to infection, bleeding, allergic reaction, further exacerbation of current symptoms, neurological injur y, and lack of efficacy. The site was marked prior to the start of the procedure. The patient was then placed in the prone position, the skin over the area was prepped with chlorhexadine, and the site was marked and draped with sterile towels. Strict sterile technique was maintained throughout the procedure. A time out was pe rformed with full staff present to identify the patient, verify the procedure being performed, and review allergies. Fluoroscopy was used to identify and align the corresponding sacroiliac joint. The skin and subcutaneous tissue over this level was anesthetized by injection of 2% lidocaine . A 22 guage 5 inch spinal needle was inserted into the posterior inferior aspect of the joint under fluoroscopic guidance by coaxial technique. After negative aspiration, 40 mg Depo-Medrol and 3 ml 0.5% Bupivacaine were injectedfor a total of 4 ml. See nursing MAR for wasted medications The needle was then flushed and withdrawn. The patient tolerated the procedure well, there were no apparent complications, and she was discharged in stable condition. Written and verbal discharge instructions were reviewed with the patient prior to discharge. Initial and Post procedure pain report: Pain Score (from Vitals) 05/17/2021 05/17/2021 Initial score 10 - Final score - 10 Location - - Comment - - Gerry MEHTA Candida Virgen MA - 05/17/2021 0930 EDT [facility] Rooming Note Does patient have a Package Pick Up? yes Is patient NPO? (Solids since midnight [...] age) Is there a chance current ? no Do you have any type of implanted device? SCS Vaccination: Have you had or are you planning to have a vaccination in the 2 weeks? no Other: no documented in this encounter Plan of Treatment Upcoming Encounters Date Type Specialty Care Team Description 06/25/2022 Telemedicine Neurology Kj Gloria MD PhD 1 [facility], [address] [place], [place] [address] (Jayjay anaya) 09/06/2022 Procedure visit Pain Medicine Catalino Garrett M D 62 [facility] [address] [place] [address] (Jayjay anaya) 09/21/2022 Office Visit Bariatrics Allen Thompson PA-C [address] [facility], [address] [place], [place] [address] (Jayjay anaya) Scheduled Referrals Name Type Priority Associated Order Schedule Diagnoses AMB CONS/FOLLOW Outpatient Routine/Next Right anterior Expected: UP PHYSICAL Referral Available shoulder pain 05/24/2021 THERAPY - (Approximate), OUTSIDE OF Expires: NETWORK 05/17/2022 documented as of this encounter Visit Diagnoses Diagnosis Sacroiliitis (HCC) - Primary Sacroiliitis, not elsewhere classified Chronic pain of right knee DDD (degenerative disc disease), cervica l Degeneration of cervical intervertebral disc Right anterior shoulder pain documented in this encounter Administered Medications Inactive Administered Medications - up to 3 most recent administrations Medication Order MAR Action Action Date Dose Rate Site bupivacaine (PF) (MARCAINE) 0.5% Given by Other 05/17/2021 9:42 EDT 6 mL injection 6 mL 6 mL, intra-articular, NOW X1, 1 dose, On Sat05/17/21 at 1000, Routine methylPREDNISolone ACETATE (DEPO-MEDROL) Given by Other 021 9:42 EDT 80 mg injection 80 mg 80 mg, intra-articular, NOW X1, 1 dose, On Sat05/17/21 at 1000, Routine documented in this encounter Care Teams Smash Hand Relationship Specialty Start Date End Date Shonda Sánchez, GIULIA PCP - General 03/14/21 01/31/[address] [place] [phone] Juma Herrera MD 12/08/18 [address] [place] [address] documented as of this encounter
--- OUTSIDE RECORDS SUMMARY | 2022-06-15 07:51 | XMS_ITS | Encounter Summary ---
:1975 Author Organization [facility] Address [address] [place] [address] Care Team Providers Name Role Phone Juma Herrera MD Unavailable Unavailable Shonda Sánchez NP Primary Care Provider Encounter Details Date Type Department Care Team Description 08/03/2021 Ambulatory Pharmacy [facility] Dragan Rodriguez [facility] Ambulatory Pharmacy - [address] [facility] [address] [place], [place] [phone] Social History Tobacco Use Types Packs/Day [...] Telemedicine Neurology Kj Gloria MD PhD 1 [facility] [address] [place], [place] [address] (Wo rk) 09/06/2022 Procedure visit Pain Medicine Catalino Garrett M D 62 [facility] [address] [place] [address] (Wo rk) 09/21/2022 Office Visit Bariatrics Allen Thompson PALizettC 111 [facility], [address] [place], [place] [address] (Wo rk) documented as of this encounter Visit Diagnoses Not on filedocumented in this encounter Care Teams Core Drill Operator Helper Relationship Specialty Start Date End Date Shonda Sánchez NP PCP - General 03/14/21 01/31/[address] [place] [phone] Juma Herrera MD 12/08/18 [address] [place] [address] documented as of this encounter
--- OUTSIDE RECORDS SUMMARY | 2022-06-15 07:51 | XMS_ITS | Encounter Summary ---
:[address] [facility] Address [address] [place] [address] Care Team Providers Name Role Phone Juma Herrera MD Unavailable Unavailable Shonda Sánchez NP Primary Care Provider [facility] Primary Care Provider Encounter Details Date Type Department Care Team Description 08/16/2021 Lab Requisition [facility] Outr Resulting Lab, Pathology & Laboratory Provider [facility] [address] [place] [address] Social History Tobacco Use Types Packs/Day Years [...] Telemedicine Neurology Kj Gloria MD PhD 1 [facility] [address] [place], [place] [address] (Wo rk) 09/06/2022 Procedure visit Pain Medicine Catalino Garrett M D 62 [facility] [address] [place] [address] (Wo rk) 09/21/2022 Office Visit Bariatrics Allen Thompson PA-C 111 [facility], [address] [place], [place] [address] (Wo rk) documented as of this encounter Procedures Procedure Name Priority Date/Time Associated Diagnosis Comme nts COVID-19 TEST [facility] Today 08/15/2021 11:12 LAB PCR EST COVID-19 TESTING Routine 08/15/2021 11:12 Results for this EST procedure are i n the results section. documented in this encounter Results COVID-19 TEST [facility] LAB PCR (08/15/2021 11:12 EST) Specimen Swab Performing Organization Address City/State/ZIP Code Phon e Number [facility] [address] [place] [address] SERVICES (ABNORMAL) COVID-19 TESTING (08/15/2021 11:12 EST) COVID-19 rt-PCR Positive (AA) Negative [facility] Result Comment: CENTER [facility]ORY This test has not been FDA c leared or approved. This test has been authorized by FDA under an EUA for use by authorized laboratories. This test has been authorized only for detection of nucleic acid fro SERVICES m 2019-nCoV, not for any oth er viruses or pathogens. This test is only authorized for the duration of the declaration that circumstances exist justifying the authorization of emergency use of in vitro d iagnostic tests for detectio n and/or diagnosis of 2019-nCoV under section 564(b)(1) of Act, 21 U.S.C ?? 360bbb-3(b) (1), unless the authorization is terminated or revoked sooner. This test was developed and its performance characteristics determined by [facility]. It has not been cleared or approved by the US Food and Drug Administration. FDA does not require this test to go through premarket FDA review. This t est is used for clinical purposes. It should not be regarded as investigational or for research. This laboratory is certified under the Clinical Laboratory Improvement Amendm ents (CLIA) as qualified to perform high complexity clinical laboratory testing. This test is based on the CD C COVID-19 Emergency Use Authorization (EUA) assay, with minor modification as defined by the FDA Performed on the [employer] 7 Flex RT-PCR System. Performing Lab [facility] SERVICES Specimen Swab Performing Organization Address City/State/ZIP Code Phon e Number [facility] [address] [place] [address] SERVICES documented in this encounter Visit Diagnoses Not on filedocumented in this encounter Additional Health Concerns Infection Onset Date Last Indicated Resolved Time COVID-19 08/15/2021 08/15/2021 09/04/2021 22:15 EST documented as of this encounter Care Teams Assistant Front Office Manager Relationship Specialty Start Date End Date Shonda Sánchez NP PCP - General 03/14/21 01/31/[address] [place] [phone] [facility] PCP - General 02/01/22 [address] [place], [place] [address] Juma Herrera MD 12/08/18 [address] [place] [address] documented as of this encounter
--- OUTSIDE RECORDS SUMMARY | 2022-06-15 07:51 | XMS_ITS | Encounter Summary ---
:1975 Author Organization [facility] Address [address] [place] [address] Care Team Providers Name Role Phone Juma Herrera MD Unavailable Unavailable Shonda Sánchez NP Primary Care Provider Reason for Visit Reason Onset Date Comments Appointment Related 09/26/2021 Encounter Details Date Type Department Care Team Description 09/26/2021 Telephone [facility] Jun Balbuena, Ziggy ppointment Related Sports Medicine Program MD Lizett Butterfield [address] [facility] [place] [phone] (Wo rk) Social History Tobacco Use Types [...] this encounter Miscellaneous Notes Telephone Encounter - Brian Chang MA - 09/26/2021 0941 EST Patient is scheduled for right shoulder MRI and right clavicle CT 2.3.22. for pt to schedule a follow up with Dr. Balbuena to review the results. documented in this encounter Plan of Treatment Upcoming Encounters Date Type Specialty Care Team Description 06/25/2022 Telemedicine Neurology Kj Gloria MD PhD 1 [facility] [address] [place], [place] [phone] (Wo rk) 09/06/2022 Procedure visit Pain Medicine Catalino Garrett M D 62 [facility] [address] [place] [address] (Wo rk) 09/21/2022 Office Visit Bariatrics Allen Thompson PA-C 111 [facility], [address] [place], [place] [address] (Wo rk) documented as of this encounter Visit Diagnoses Not on filedocumented in this encounter Care Teams Flatbed Truck Driver Relationship Specialty Start Date End Date Shonda Sánchez NP PCP - General 03/14/21 01/31/[address] [place] [phone] Juma Herrera MD 12/08/18 [address] [place] [address] documented as of this encounter
--- OUTSIDE RECORDS SUMMARY | 2022-06-15 07:51 | XMS_ITS | Encounter Summary ---
:1975 Author Organization [facility] Address [address] [place] [address] Care Team Providers Name Role Phone Juma Herrera MD Unavailable Unavailable Shonda Sánchez NP Primary Care Provider Encounter Details Date Type Department Care Team Description 08/03/2021 Orders Only [facility] Neurology Yevgeniy Yee smith, [facility] [place] [address] [facility] 1 [facility] 23 [place], [place] [address] [place] [address] [phone] (Wo rk) Social History Tobacco Use Types [...] Date erenumab-aooe (AIMOVIG Inject 1 mL into 1 mL 0 021 08/13/2021 AUTOINJECTOR) 70 mg/mL the skin every 28 auto-injector days for 10 days. documented in this encounter Plan of Treatment Upcoming Encounters Date Type Specialty Care Team Description 06/25/2022 Telemedicine Neurology Kj Gloria MD PhD 1 [facility] 2 [place], [place] [address] (Wo rk) 09/06/2022 Procedure visit Pain Medicine Catalino Garrett M D 62 [facility] [address] [place] [address] (Wo rk) 09/21/2022 Office Visit Bariatrics Allen Thompson PA-C 111 [facility], [address] [place], [place] [address] (Wo rk) documented as of this encounter Visit Diagnoses Not on filedocumented in this encounter Care Teams Expediter Service Order Relationship Specialty Start Date End Date Shonda Sánchez NP PCP - General 03/14/21 01/31/[address] [place] [address] Juma Herrera MD 12/08/18 [address] [facility] [place] [address] documented as of this encounter
--- OUTSIDE RECORDS SUMMARY | 2022-06-15 07:51 | XMS_ITS | Encounter Summary ---
:1975 Author Organization [facility] Address [address] [place] [address] Care Team Providers Name Role Phone Juma Herrera MD Unavailable Unavailable Shonda Sánchez NP Primary Care Provider Reason for Referral Radiology Services (Routine/Next Available) - Authorization Not Required Specialty Diagnoses / Procedures Referred By Contact Refer red To Contact Radiology Diagnoses Chronic right shoulder pain Jun Balbuena MD [facility] Procedures MR SHOULDER WO CONTRAST RIGHT [address] [place] [address] Referral ID Status Reason Start Expiration Visits Visits Date Date Requested Authorized [id number] Authorization Not 09/12/2021 1 1 Required adiology Services (Routine/Next Available) - Authorization Not Required Specialty Diagnoses / Procedures Referred By Contact Refer red To Contact Diagnoses Subluxation of right sternoclavicular joint, initial encounter Osteoarthritis of right sternoclavicular joint Jun Balbuena MD [facility] Procedures CT CLAVICLE RIGHT WO CONTRAST [address] [place] [address] Referral ID Status Reason Start Expiration Visits Visits Date Date Requested Authorized [id number] Authorization Not 09/12/2021 1 1 Required T/OT/ST (Routine/Next Available) - Specialty Report Received Specialty Diagnoses / Procedures Referred By Contact Refer red To Contact Diagnoses Subluxation of right sternoclavicular joint, initial encounter Osteoarthritis of right sternoclavicular joint Jun Balbuena MD [address] [place] [phone] Referral ID Status Reason Start Expiration Visits Visits Date Date Requested Authorized [id number] Specialty Specialty 09/12/2021 1 1 Report Services Received Required Question Answer Reason for Request: chronic right shoulder pain, SC joint OA and subluxation Comments Please work on stretching and strengthen ing of rotator cuff and scapular stabilizers. Postural training. Modalities as necessary. animal trainer services incl uded. Reason for Visit Reason Comments Pain Consult (See Order Priority) - Authorization Not Required Specialty Diagnoses / Procedures Referred By Contact Refer red To Contact Orthopedic Surgery Diagnoses Right shoulder pain, unspecified chronicity Kj Child, [facility] Fermín Hines MD MD [address] [place] [phone] Fax: Referral ID Status Reason Start Expiration Visits Visits Date Date Requested Authorized [id number] Authorization Specialty 07/21/20 1 1 Not Required Services 21 Required Encounter Details Date Type Department Care Team Description 09/12/2021 Office Visit [facility] Jun Balbuena Subluxati on of right sternoclavicular joint, initial encounter (Primary Dx); Sports Medicine MD Isidro Osteoarthritis of right sternoclavicular joint; Program - [address] Chronic right shoulder pain [address] [place] [phone] Social History Tobacco Use Types Packs/Day [...] - Inhaled Oxygen Concentration - - Weight 99.8 kg (220 lb) 09/12/2021 1439 EST per pt Height 172.7 cm (5' 8) 09/12/2021 1439 EST per pt Body Mass Index 33.45 09/12/2021 1439 EST documented in this encounter Functional Status [...] encounter Progress Notes Jun Balbuena MD - 09/12/2021 1430 EST Chief Complaint Patient presents with ??? Right Shoulder - Pain Tia Rooney is seen in consultation at the request of Kj Child MD for evaluation of right shoulder pain. SUBJECTIVE: Tia Rooney is a 46 y.o. female who presents to the office with a long standing history of right posterior shoulder pain. She reports that many years ago her chiropractor noticed a large lump in theregion of her scapula. Xrays were negative. [place] to me muscular. After 3 weeks, the lump went away. She then hit her shoulder on a table saw and eventually got the wound evaluated for an infection. Shethen noticed a lump in the front of the shoulder. She points to the SC joint. More pain with reaching up and reaching back. She still has motion. Occasionally feels weak. She does improve with rest, sling, heat and ice She is going to PT for several problems including her neck and lumbar spine. She is followed by Dr. Garrett who does injections in her neck. Her PT was not sure what was going on and sent her to Dr. Bro Child who determined this was not something he was able to treat. 6 out of 10 pain. Past Medical History: Diagnosis Date ??? Anxiety ??? Arthritis ??? Back pain ??? Bipolar disorder ([facility]) ??? Breathing problem ??? Depression ??? Diabetes mellitus ([facility]) ??? Drug abuse ([facility]) ([facility]) ??? Environmental allergies ??? Eye problem ??? Generalized headaches ??? Headache(784.0) ??? Heart disease ??? History of substance abuse ([facility]) ([facility]) ??? Hypertension ??? Kidney disease ??? Mental disorder ??? Nervousness(799.21) ??? Numbness ??? Personality disorder ([facility]) ([facility]) ??? Plantar fasciitis ??? PTSD (post-traumatic stress disorder) ??? Tarsal tunnel syndrome Patient Active Problem List Diagnosis ??? Lumbar radiculopathy ??? Os trigonum syndrome ??? Tarsal tunnel syndrome of right side ??? Idiopathic peripheral neuropathy ??? Cervicalgia ??? Morbid obesity with BMI of 45.0-49.9, adult ([facility]) ([facility]) ??? Chronic migraine without aura without status migrainosus, not intractable Past Surgical History: Procedure Laterality Date ??? BACK SURGERY ??? CHOLECYSTECTOMY ??? LAMINECTOMY L5-S1 Dr. Bowers 1999 ??? SPINAL FUSION L5-S1 Dr. Child 2006 ??? TUBAL LIGATION Outpatient Medications Marked as Taking for the 09/12/21 encounter (Office Visit) with Jun Balbuena MD Medication Sig Dispense Refill ??? busPIRone (BUSPAR) [...] mouth every 6 hours as needed for [id number] Tab 0 ??? SUMAtriptan Succinate 6 mg/0.5 mL cartridge Inject 6 mg into the skin as needed (migraine). Takeas directed. 6 mL 11 Allergies Allergen Reactions ??? Adhesive Other (See Comments) Skin irritation, paper tape ok ??? Bee Sting [Hymenoptera Allergenic Extract] Swelling Fever and vomiting ??? Codeine Hives and Nausea And Vomiting ??? 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 ROS: A 12 system comprehensive review of systems was documented in the intake form all of which is negative except night sweats, back pain, shoulder pain/swelling/instability/stiffness, headaches. OBJECTIVE: Ht 172.7 cm (68) Comment: per pt Wt 99.8 kg (220 lb) Comment: per pt BMI 33.45 kg/m?? General: awake, alert, NAD, pleasant EENT: extraocular motion grossly intact Pulmonary: normal respirations, non-labored breathing Psych: normal affect, thoughts are logical and sequential Examination of right shoulder: Inspection: no ecchymosis, no erythema, SC joint prominence that worsens with shoulder elevation, nodeformity, no atrophy, no scars noted. Palpation: nonspecific tenderness to the shoulder girdle including AC joint, SC joint and scapula. Range of motion: 135 degrees forward elevation. 120 degrees abduction. Passively, 45 degrees ER at 0degrees abduction, 90 degrees ER at 90 degrees abduction, IR to T12 vs T10 Strength testin/5 motor in empty can/scaption, 5/5 motor in resisted external rotation. 5/5 motor on subscapular lift off test. Impingement testing: negative Su, negative Neers Special tests: No increased anterior or posterior translation on load shift testing. Negative sulcussign. Positive active compression test with pain localizing to AC and SC joints. Distal neurovascular exam intact. DIAGNOSTIC DATA: Plain films taken today and independently reviewed by me including true AP, axillary and outlet views of right shoulder reveal evidence of AC joint degenerative changes. ASSESSMENT: Chronic right shoulder pain with evidence of sternoclavicular instability, recurrent subluxations and sternoclavicular osteoarthritis. She also has nonspecific myofascial pain around the shoulder. PLAN: Patient's diagnosis, plain films and treatment options were discussed at length. Physical therapy was discussed as well to focus on rotator cuff and scapular stabilizer stretching and strengthening. Postural training will be addressed. Activity modification, ice and OTC medications were recommended as well. Minimize overhead and repetitive use. No heavy lifting. We have ordered a CT scan of the clavicle and an MRI of the shoulder. Follow up in several weeks to review the images. The patient verbalized understanding of the above and agreed with this plan. All of her questions were answered to her satisfaction today. I spent a total of 40 minutes on the date of this encounter meeting with the patient and reviewing documentation/coordinating care as described in the above note. I would like to thank Kj Child MD for this kind referral. I will keep you up to date onStacie Eileen Rooney's progress. Jun Balbuena M.D. 09/12/2021 16:53 Cc: Shonda Sánchez NP and Bro Child MD documented in this encounter Plan of Treatment Upcoming Encounters Date Type Specialty Care Team Description 06/25/2022 Telemedicine Neurology Kj Gloria MD PhD [address] [facility] [address] [place], [place] [phone] (Wo rk) 09/06/2022 Procedure visit Pain Medicine Catalino Garrett M D [address] [facility] [address] [place] [address] (Wo rk) 09/21/2022 Office Visit Bariatrics Allen Thompson PA-C [address] [facility], [address] [place], [place] [phone] (Wo rk) Scheduled Referrals Name Type Priority Associated Diagnoses Order S chedule AMB CONS/FOLLOW Outpatient Routine/Next Subluxation of right Expe cted: UP PHYSICAL Referral Available sternoclavicular joint, 09/02 THERAPY - initial encounte r (Approximate), OUTSIDE OF Osteoarthritis of right Expi res: NETWORK sternoclavicular joint 09/12 documented as of this encounter Results CT CLAVICLE RIGHT WO CONTRAST (10/05/2021 13:38 EST) Anatomical Region Laterality Modality Upper Extremities Right Computed Tomography Specimen Impressions [facility] - 10/09/2021 13:31 EST Prominence of the right sternoclavicular joint appears to be largely related to joint hypertrophy in the setting of degenerative change. Mini mal if any subluxation of the right sternoclavicular joint on the static images. Narrative [facility] - 10/09/2021 13:31 EST Exam:CT CLAVICLE RIGHT WO CONTRAST ??10/05/2021 3:00 PM Technique:CT CLAVICLE RIGHT WO CONTRAST ?? Three-dimensional reconstructions were g enerated on an independent workstation. Images were reviewed and adjusted for 3-D rendering on an independent workstation, as needed, prior to interpretation. History: ?? chronic shoulder pain Comparison: None. FINDINGS: Bones: Prominence of the right sternocla vicular joint appears to be largely related to joint hypertrophy in the setting of degenerative change. Minimal if any subluxation of the right sternoclavicular joint. Moderate AC joint degenerative changes o n the right. Anterior fusion of C5-6. Muscles/Tendons: No significant muscle a trophy. Other Soft tissues: Somewhat limited priyanka luation of the partially included lung due to motion artifact. Procedure Note Ever Willson MD - 10/09/2021 Exam:CT CLAVICLE RIGHT WO CONTRAST 3:00 PM Technique:CT CLAVICLE RIGHT WO CONTRAST Three-dimensional reconstructions were g enerated on an independent workstation. Images were reviewed and adjusted for 3-D rendering on an independent workstation, as needed, prior to interpretation. History: chronic shoulder pain Comparison: None. FINDINGS: Bones: Prominence of the right sternocla vicular joint appears to be largely related to joint hypertrophy in the setting of degenerative change. Minimal if any subluxation of the right sternoclavicular joint. Moderate AC joint degenerative changes o n the right. Anterior fusion of C5-6. Muscles/Tendons: No significant muscle a trophy. Other Soft tissues: Somewhat limited priyanka luation of the partially included lung due to motion artifact. IMPRESSION Prominence of the right sternoclavicular joint appears to be largely related to joint hypertrophy in the setting of degenerative change. Minimal if any subluxation of the right sternoclavicular joint on the static images. Performing Organization Address City/State/ZIP Code Phon e Number [facility] [place] MR SHOULDER WO CONTRAST RIGHT (10/05/2021 13:16 EST) Anatomical Region Laterality Modality Upper Extremities Right Magnetic Resonance Specimen Impressions [facility] - 10/06/2021 17:02 EST MR SHOULDER WO [...] interpretation and agree with the findings. Narrative [facility] - 10/06/2021 17:02 EST [...] Organization Address City/State/ZIP Code Phon e Number [facility] documented in this encounter Visit Diagnoses Diagnosis Subluxation of right sternoclavicular dee int, initial encounter - Primary Osteoarthritis of right sternoclavicular joint Chronic right shoulder pain Pain in joint, shoulder region Chronic right shoulder pain Pain in joint, shoulder region Subluxation of right sternoclavicular dee int, initial encounter Osteoarthritis of right sternoclavicular joint documented in this encounter Care Teams Smocker Relationship Specialty Start Date End Date Shonda Sánchez NP PCP - General 03/14/21 01/31/[address] [place] [phone] Juma Herrera MD 12/08/18 [address] [facility] [address] [address] [place] [address] documented as of this encounter
--- OUTSIDE RECORDS SUMMARY | 2022-06-15 07:51 | XMS_ITS | Encounter Summary ---
:1975 Author Organization [facility] Address [address] [place] [address] Care Team Providers Name Role Phone Juma Herrera MD Unavailable Unavailable Shonda Sánchez NP Primary Care Provider [facility] [place] Primary Care Provider [phone] Reason for Referral Consult (See Order Priority) - Authorization Not Required Specialty Diagnoses / Procedures Referred By Contact Refer red To Contact Orthopedic Surgery Diagnoses Right shoulder pain, unspecified chronicity Kj Child, [facility] Fermín Hines MD MD [address] [place] [phone] Fax: Referral ID Status Reason Start Expiration Visits Visits Date Date Requested Authorized [id number] Authorization Specialty 07/21/20 1 1 Not Required Services 21 Required Question Answer Reason for Request: Sternoclavicular OA and poss ibility of injections adiology Services (Routine/Next Available) - Authorization Not Required Specialty Diagnoses / Procedures Referred By Contact Refer red To Contact Diagnoses Back pain, unspecified back location, unspecified back pain laterality, unspecified chronicity Kj Child MD [facility] Procedures XR ENTIRE SPINE 2-[address] [place] [phone] Referral ID Status Reason Start Expiration Visits Visits Date Date Requested Authorized [id number] Authorization Not 1 1 Required 1 Encounter Details Date Type Department Care Team Description 07/17/2021 Orders Only [facility] Kj Child pa in, unspecified back location, unspecified back pain laterality, unspecified chronicity (Primary Dx); Spine Program - Moises Kovacs MD Right shoulder pain, unspecified chronic ity [address] [place] [phone] Social History Tobacco Use Types Packs/Day Years [...] Neurology Kj Gloria MD PhD 1 [facility], [address] [place], [place] [phone] (Wo rk) 09/06/2022 Procedure visit Pain Medicine Catalino Garrett M D [address] [place] [address] (Wo rk) 09/21/2022 Office Visit Bariatrics Allen Thompson PA-C [address] [facility] [place] [facility], [address] [place], [place] [address] (Wo rk) Scheduled Referrals Name Type Priority Associated Order Schedule Diagnoses AMB CONS/FOLLOW UP Outpatient Routine/Next Right shoulder Expecte d: ORTHOPEDICS Referral Available pain, unspecified 08/18/2021 chronicity (Approximate), Expires: 07/19/2022 documented as of this encounter Results XR ENTIRE SPINE 2-3 VIEWS (07/18/2021 14:18 EST) Anatomical Region Laterality Modality Spine Computed Radiography Specimen Impressions [facility] - 07/19/2021 13:25 EST Findings/Impression: Very mild [...] normal. No severe disc height loss. Narrative [facility] - 07/19/2021 13:25 EST XR ENTIRE SPINE [...] Organization Address City/State/ZIP Code Phon e Number [facility] documented in this encounter Visit Diagnoses Diagnosis Back pain, unspecified back location, un specified back pain laterality, unspecified chronicity - Primary Right shoulder pain, unspecified chronic ity Back pain, unspecified back location, un specified back pain laterality, unspecified chronicity documented in this encounter Additional Health Concerns Infection Onset Date Last Indicated Resolved Time COVID-19 08/15/2021 08/15/2021 09/04/2021 22:15 EST documented as of this encounter Care Teams Power Project Manager Relationship Specialty Start Date End Date Shonda Sánchez NP PCP - General 03/14/21 01/31/[address] [place] [phone] [facility] [place] PCP - General 02/01/22 [address] [place] [address] Juma Herrera MD 12/08/18 [address] [place] [address] documented as of this encounter
--- OUTSIDE RECORDS SUMMARY | 2022-06-15 07:51 | XMS_ITS | Encounter Summary ---
:[address] [facility] Address [address] [place] [address] Care Team Providers Name Role Phone Juma Herrera MD Unavailable Unavailable Shonda Sánchez NP Primary Care Provider Reason for Visit Reason Comments Neck Pain Knee Pain right side Back Pain Leg Pain right side Encounter Details Date Type Department Care Team Description 06/22/2021 Office Visit [facility] - Catalino Garrett, Sacro iliitis, not elsewhere classified (HCC-CMS) (HCC) (Primary Dx); [facility] Disc disease, degenerative, cervical [facility] [address] [facility] Interventional Pain [address] [place], [place] [address] [place], [place] [phone] Social History Tobacco Use Types Packs/Day [...] Sign Reading Time Taken Comments Blood Pressure 135/77 06/22/2021 1602 EDT Pulse 94 06/22/2021 1602 EDT Temperature 35.4 ??C (95.7 ??F) 06/22/2021 1602 EDT Respiratory Rate 16 06/22/2021 1602 EDT Oxygen Saturation 100% 06/22/2021 1602 EDT Inhaled Oxygen Concentration - - Weight [...] documented as of this encounter Progress Notes Catalino Garrett MD - 06/22/2021 1630 EDT OP PAIN FU Patient Name: Tia Spain Date of Service: 06/26/2021 Chief Complaint: Chief Complaint Patient presents with ??? Neck Pain ??? Knee Pain right side ??? Back Pain ??? Leg Pain right side Physician Requesting Consultation: Juma Herrera MD History of Present Illness: Ms. Tia Spain is a 46 y.o. female with past medical history listed below who presents to the pain clinic concerning chronic . How long pain has been present: years Location of Pain: posterior neck, worse on right and R shoulder B/l axial low back pain, Newer anterior neck and clavicular pain Also hx of R knee pain Referred/Radicular Pain Symptoms: not in lumbar, unclear in cervical, although neck pain has non-radicular radiation to right Description of Pain: sharp, ache Activities that worsen pain: walking, standing, stairs, exercise Activities that improves pain: inactivity Functional limitations: difficulty maintaining physical activity Diagnostics: no imaging of knees, has undergone knee injections which was helpful Patient currently denies any bowel and/or bladder incontinence, progressive weakness, saddle numbness, unexplained fever, trauma or unexplained weight loss. Inj hx 05/17/2021: sacroiliac joint injection bilateral - 80% improvement x4 weeks, now at 50% improvement 04/05/2021: cervical epidural steroid injection at C6C7 - 80% improvement in posterior neck pain. Still [...] CUAUHTEMOC - 80% relief for 3 months hx of multiple b/l SIJ injections going back to 2013 L5-S1 decompression and fusion (2006) Allergies: Allergies Allergen Reactions ??? Adhesive Other (See Comments) Skin irritation, paper tape ok ??? Bee Sting [Hymenoptera Allergenic Extract] Swelling Fever and vomiting ??? Codeine Hives and Nausea And Vomiting ??? Other - See Comments Nausea And Vomiting Root beer Current Medications: Current Outpatient Medications Medication ??? busPIRone (BUSPAR) 5 mg tablet ??? calcium carbonate/vitamin D3 (VITAMIN D-3 ORAL) ??? cholecalciferol, Vitamin D3, 25 mcg (1,000 unit) tablet ??? cortisone acetate (CORTISONE IM) ??? diphenhydrAMINE-acetaminophen 25-500 mg tablet ??? duloxetine (CYMBALTA) 30 mg capsule ??? erenumab-aooe (AIMOVIG AUTOINJECTOR) 70 mg/mL auto-injector ??? LORazepam (ATIVAN) 0.5 mg tablet ??? MAGNESIUM ORAL ??? MEDICAL MARIJUANA ??? methylphenidate (RITALIN SR; METADATE ER; METHYLIN ER) 20 mg SR tablet ??? methylphenidate (RITALIN;METHYLIN) 5 mg tablet ??? multivitamins (THERAGRAN) ??? omeprazole (PRILOSEC) 20 mg capsule ??? oxyCODONE (ROXICODONE) 5 mg immediate release tablet ??? pediatric multivitamin (JUAN CHEW VIT) chewable tablet ??? potassium chloride (KLOR-CON) 20 mEq packet ??? pregabalin (LYRICA) 50 mg capsule ??? prochlorperazine (COMPAZINE) 10 mg tablet ??? rizatriptan (MAXALT) 10 mg tablet ??? SUMAtriptan Succinate 6 mg/0.5 mL cartridge No current facility-administered medications for this visit. Past Medical HX: Past Medical History: Diagnosis Date ??? Anxiety ??? Arthritis ??? Back pain ??? Bipolar disorder ([facility]) ??? Breathing problem ??? Depression ??? Diabetes mellitus ([facility]) ??? Drug abuse (HCC-CMS) ([facility]) ??? Environmental allergies ??? Eye problem ??? Generalized headaches ??? Headache(784.0) ??? Heart disease ??? History of substance abuse (HCC-CMS) ([facility]) ??? Hypertension ??? Kidney disease ??? Mental disorder ??? Nervousness(799.21) ??? Numbness ??? Personality disorder (HCC-CMS) ([facility]) ??? Plantar fasciitis ??? PTSD (post-traumatic stress disorder) ??? Tarsal tunnel syndrome Past Surgical HX: Past Surgical History: Procedure Laterality Date ??? BACK SURGERY ??? CHOLECYSTECTOMY ??? LAMINECTOMY L5-S1 Dr. Bowers 1999 ??? SPINAL FUSION L5-S1 Dr. Child 2006 ??? TUBAL LIGATION Past Social HX: Social History Socioeconomic History ??? Marital status: Spouse name: Not on file ??? Number of children: Not on file ??? Years of education: Not on file ??? Highest education level: Not on file Occupational History ??? Not on file Tobacco Use ??? Smoking status: Former Smoker Quit date: 01/13/2009 Years since quittin.4 ??? Smokeless tobacco: Never Used Substance and Sexual Activity ??? Alcohol use: Yes Alcohol/week: 0.0 standard drinks Comment: very rarely ??? Drug use: No ??? Sexual activity: Not on file Other Topics Concern ??? Not on file Social History Narrative ??? Not on file Social Determinants of Health Financial Resource Strain: ??? Difficulty of Paying Living Expenses: Not on file Food Insecurity: ??? Worried About Running Out of Food in the Last Year: Not on file ??? Ran Out of Food in the Last Year: Not on file Transportation Needs: ??? Lack of Transportation (Medical): Not on file ??? Lack of Transportation (Non-Medical): Not on file Physical Activity: ??? Days of Exercise per Week: Not on file ??? Minutes of Exercise per Session: Not on file Stress: ??? Feeling of Stress : Not on file Social Connections: ??? Frequency of Communication with Friends and Family: Not on file ??? Frequency of Social Gatherings with Friends and Family: Not on file ??? Attends Jehovah[employer] Witness Services: Not on file ??? Active Member of Clubs or Organizations: Not on file ??? Attends Club or Organization Meetings: Not on file ??? Marital Status: Not on file Family HX: Patient denies any family history of chronic pain, immunological or genetic syndromes that is contributory to the patient's current symptoms. Review of Systems: Except for those reported in HPI, no other pertinent positives reported Physical Exam: Vitals: BP 135/77 Pulse 94 Temp (!) 35.4 ??C (95.7 ??F) (Temporal) Resp 16 SpO2 100% General: Patient is alert and oriented x3, no acute distress Neuro: Cranial nerves II-XII grossly intact and symmetric Cardio: Palpable pulses bilaterally Lungs: symmetric chest rise, no evidence of labored breathing Skin: clear, warm, dry and intact and no rashes, bruises or petechiae noted Musculoskeletal: Gait: patient ambulates independently, antalgic gait SIJ: ttp @ b/l SI joint injections, pain with SUMIT, thigh thrust b/l, Cspine: ttp, strength 5/5 in all keenan muscle groups b/l Lower Extremity: strength 5/5 in all keenan muscle groups b/l, Assessment/Plan: 1. Sacroiliitis, not elsewhere classified (HCC-CMS) ([facility]) 2. Disc disease, degenerative, cervical SIJ inj and YSABEL have been helpful but SIJ injection in particular has waning efficacy. She has beenhesitant to be re-evaluated by surgery, but I suggested she do this to make sure no operative strategies are available. Her YSABEL is somewhat effective for posterior neck pain, but I don't have a good explanation for her anterior clavicular neck and shoulder pain. I would not be able to inject steroids in any more body parts anyway, so I suggest PT for this symptom. Gerry MEHTA I spent a total of 46 minutes on the date of this encounter meeting with the patient and reviewing documentation/coordinating care as described in the above note. No procedures were performed at the time of the visit. documented in this encounter Plan of Treatment Upcoming Encounters Date Type Specialty Care Team Description 06/25/2022 Telemedicine Neurology Kj Gloria MD PhD [address] [facility] [address] [place], [place] [phone] (Wo rk) 09/06/2022 Procedure visit Pain Medicine Catalino Garrett M D [address] [facility] [address] [place] [address] (Jayjay rk) 09/21/2022 Office Visit Bariatrics Allen Thompson, ELISABETH [address] [facility], [address] [place], [place] [phone] (Jayjay anaya) documented as of this encounter Visit Diagnoses Diagnosis Sacroiliitis, not elsewhere classified ( HCC-CMS) (HCC) - Primary Sacroiliitis, not elsewhere classified Disc disease, degenerative, cervical Degeneration of cervical intervertebral disc documented in this encounter Care Teams Vertica Architect Relationship Specialty Start Date End Date Shonda Sánchez, GIULIA PCP - General 03/14/21 01/31/[address] [place] [phone] Juma Herrera MD 12/08/18 [address] [place] [address] documented as of this encounter
--- OUTSIDE RECORDS SUMMARY | 2022-06-15 07:51 | XMS_ITS | Encounter Summary ---
:1975 Author Organization [facility] Address [address] [place] [address] Care Team Providers Name Role Phone Juma Herrera MD Unavailable Unavailable Shonda Sánchez NP Primary Care Provider Reason for Visit Reason Onset Date Comments Appointment Related 04/28/2021 Encounter Details Date Type Department Care Team Description 04/28/2021 Telephone [facility] - Catalino Garrett MD Appointment Related [address] Interventional Pain [address] [place] [address] [place], [place] 05 [facility] [phone] Social History Tobacco Use Types Packs/Day Years [...] this encounter Miscellaneous Notes Telephone Encounter - Shantelle Gautam RN - 04/28/2021 1315 EDT 04/28/2021: Per Dr. Garrett: We should repeat SIJ injections if symptoms are same as previously in low back. Likely cannot do anything for collarbone. 04/28/2021: RN spoke with the pt and made her aware of Dr. Garrett's plan. Pt will have SIJ injectionson 04/28/2021. Forwarded to prior auth elephone Encounter - Molly Crawford - 04/28/2021 0934 EDT Called pt to discuss ABN for SIJ injection. She wants to know if Dr Garrett still wants to do it beforedoing a follow up to discuss other options. Pt reported that sometimes end of January/March she went to the ED in [facility] for a swollen collarbone. She stated it is still a little swollen and the pain is radiation down her right arm with numbness in her hand. She Stated the pain is similar, but not as bad as the first time she hurt her neck. documented in this encounter Plan of Treatment Upcoming Encounters Date Type Specialty Care Team Description 06/25/2022 Telemedicine Neurology Kj Gloria MD PhD 1 [facility], [address] [place], [place] [phone] (Wo rk) 09/06/2022 Procedure visit Pain Medicine Catalino Garrett M D [address] [facility] [address] [place] [address] (Wo rk) 09/21/2022 Office Visit Bariatrics Allen Thompson PA-C [address] [facility], [facility], [address] [place], [place] [phone] (Wo rk) documented as of this encounter Visit Diagnoses Not on filedocumented in this encounter Care Teams Industrial Relations Counselor Relationship Specialty Start Date End Date Shonda Sánchez, GIULIA PCP - General 03/14/21 01/31/[address] [place] [phone] Juma Herrera MD 12/08/18 [address] [place] [address] documented as of this encounter
--- OUTSIDE RECORDS SUMMARY | 2022-06-15 07:51 | XMS_ITS | Encounter Summary ---
:1975 Author Organization [facility] Address [address] [place] [address] Care Team Providers Name Role Phone Juma Herrera MD Unavailable Unavailable Shonda Sánchez NP Primary Care Provider Reason for Referral Radiology Services (Routine/Next Available) - Authorization Not Required Specialty Diagnoses / Procedures Referred By Contact Refer red To Contact Diagnoses Subluxation of right sternoclavicular joint, initial encounter Osteoarthritis of right sternoclavicular joint Jun Balbuena MD [facility] Procedures CT CLAVICLE RIGHT WO CONTRAST [address] [place] [address] Referral ID Status Reason Start Expiration Visits Visits Date Date Requested Authorized [id number] Authorization Not 09/12/2021 1 1 Required Reason for Visit Radiology Services (Routine/Next Available) - Authorization Not Required Specialty Diagnoses / Procedures Referred By Contact Refer red To Contact Diagnoses Subluxation of right sternoclavicular joint, initial encounter Osteoarthritis of right sternoclavicular joint Jun Balbuena MD [facility] Procedures CT CLAVICLE RIGHT WO CONTRAST [address] [place] [address] Referral ID Status Reason Start Expiration Visits Visits Date Date Requested Authorized [id number] Authorization Not 09/12/2021 1 1 Required Encounter Details Date Type Department Care Team Description 10/05/2021 Hospital Encounter [facility] Subluxa tion of right sternoclavicular joint, initial encounter; Radiology CT - Main Osteoart hritis of right sternocl[place] [address] Social History Tobacco Use Types Packs/Day Years [...] multivitamin Take 1 Tab by mouth 0 /02/201605/17/2022 (JUAN CHEW VIT) daily Hold for 2 [...] MD PhD 1 [facility], [address] [place], [place] [phone] (Wo rk) 09/06/2022 Procedure visit Pain Medicine Catalino Garrett M D [address] [facility] [address] [place] [address] (Wo rk) 09/21/2022 Office Visit Bariatrics Allen Thompson PA-C [address] [facility], [address] [place], [place] [phone] (Wo rk) documented as of this encounter Procedures Procedure Name Priority Date/Time Associated Diagnosis Comme nts CT CLAVICLE RIGHT Routine 10/05/2021 13:38 Subluxation of righ t Results for this WO CONTRAST EST sternoclavicular joint, proc edure are in initial encounte r the results Osteoarthritis of right sect ion. sternoclavicular joint documented in this encounter Results CT CLAVICLE RIGHT WO CONTRAST (10/05/2021 13:38 EST) Anatomical Region Laterality Modality Upper Extremities Right Computed Tomography Specimen Impressions [facility] - 10/09/2021 13:31 EST Prominence of the right sternoclavicular joint appears to be largely related to joint hypertrophy in the setting of degenerative change. Mini mal if any subluxation of the right sternoclavicular joint on the static images. Narrative [facility] RADIOLOGY [facility] - 10/09/2021 13:31 EST Exam:CT CLAVICLE RIGHT [...] - 10/09/2021 Exam:CT CLAVICLE RIGHT WO CONTRAST 022 3:00 PM Technique:CT CLAVICLE RIGHT WO CONTRAST [...] Organization Address City/State/ZIP Code Phon e Number [facility] documented in this encounter Visit Diagnoses Diagnosis Subluxation of right sternoclavicular dee int, initial encounter Osteoarthritis of right sternoclavicular joint documented in this encounter Care Teams Llama Farmer Relationship Specialty Start Date End Date Shonda Sánchez NP PCP - General 03/14/21 01/31/[address] [place] [phone] Juma Herrera MD 12/08/18 [address] [place] [address] documented as of this encounter
--- OUTSIDE RECORDS SUMMARY | 2022-06-15 07:52 | XMS_ITS | Encounter Summary ---
:1975 Author Organization [facility] Address [address] [place] [address] Care Team Providers Name Role Phone Juma Herrera MD Unavailable Unavailable Juma Herrera MD Primary Care Provider Unavailable Reason for Visit Reason Onset Date Comments Appointment Related 12/14/2019 Encounter Details Date Type Department Care Team Description 12/14/2019 Telephone [facility] - Catalino Garrett MD Appointment Related [address] Interventional Pain [address] [address] [place] [address] [phone] Social History Tobacco Use Types Packs/Day Years [...] encounter Miscellaneous Notes Telephone Encounter - Mica Souza - 12/14/2019 1102 EDT Patient was scheduled for Cervical Epidural Steroid Injection with Dr Garrett on 01/07/2020. Spoke with patient 12/14/2019, she was understanding and will be waiting for a call when we resume scheduling. Patient???s appointment has been canceled, and a ???Recall?? 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 documented in this encounter Plan of Treatment Upcoming Encounters Date Type Specialty Care Team Description 06/25/2022 Telemedicine Neurology Kj Gloria MD PhD 1 [facility] [address] [place], [place] [phone] (Wo héctor) 09/06/2022 Procedure visit Pain Medicine Catalino Garrett M D [address] [facility] [address] [place] [address] (Jayjay anaya) 09/21/2022 Office Visit Bariatrics Allen Thompson PA-C [address] [facility] [address] [place], [place] [address] (Wo héctor) documented as of this encounter Visit Diagnoses Not on filedocumented in this encounter Care Teams Historical Guide Relationship Specialty Start Date End Date Juma Herrera MD PCP - General 01/07/19 03/13/21 Juma Herrera MD 12/08/18 [address] [place] [address] documented as of this encounter
--- OUTSIDE RECORDS SUMMARY | 2022-06-15 07:52 | XMS_ITS | Encounter Summary ---
:[address] [facility] Address [address] [place] [address] Care Team Providers Name Role Phone Juma Herrera MD Unavailable Unavailable Juma Herrera MD Primary Care Provider Unavailable Reason for Visit Reason Onset Date Comments Appointment Related 06/05/2019 Encounter Details Date Type Department Care Team Description 06/05/2019 Telephone [facility] Kj Rodriguez ppointment Related Program - MD Marcell[address] [place], [place] [address] [place], [place] [phone] (Wo rk) Social History Tobacco Use Types [...] this encounter Miscellaneous Notes Telephone Encounter - Miguel Crandall - 06/05/2019 4522 EDT Returned Tia's call, inquiring about the injection she talked about with Dr Child during her pt, she hadn't heard anything about it. Told her it appeared that the order had not be placed at that time, but that after speaking with Dr Child it was placed yesterday, 06/04, and that the Pain Clinic should be calling her in the next few days with a date/time for that injection. documented in this encounter Plan of Treatment Upcoming Encounters Date Type Specialty Care Team Description 06/25/2022 Telemedicine Neurology Kj Gloria MD PhD 1 [facility], [address] [place], [place] [phone] (Jayjay anaya) 09/06/2022 Procedure visit Pain Medicine Catalino Garrett M D [address] [facility] [address] [place] [address] (Jayjay anaya) 09/21/2022 Office Visit Bariatrics Allen Thompson PA-C [address] [facility] venue [facility], [address] [place], [place] [address] (Jayjay anaya) documented as of this encounter Visit Diagnoses Not on filedocumented in this encounter Care Teams Account Financial Manager Relationship Specialty Start Date End Date Juma Herrera MD PCP - General 01/07/19 03/13/21 Juma Herrera MD 12/08/18 [address] [place] [address] documented as of this encounter
--- OUTSIDE RECORDS SUMMARY | 2022-06-15 07:52 | XMS_ITS | Encounter Summary ---
:1975 Author Organization [facility] Address [address] [place] [address] Care Team Providers Name Role Phone Juma Herrera MD Unavailable Unavailable Shonda Sánchez NP Primary Care Provider Reason for Visit Reason Comments Knee Pain Office Procedure (Routine) - Specialty Report Received Specialty Diagnoses / Procedures Referred By Contact Refer red To Contact Pain Medicine Diagnoses Pain in right knee Unilateral post-traumatic osteoarthritis, right knee R knee injection with monovisc (hyaluronic acid) [facility] Catalino Garrett MD Procedures NE ARTHROCENTESIS ASPIR&/INJ MAJOR JT/BURSA W/O US NE MONOVISC INJ PER DOSE PROCEDURE SHORT [address] [place] [address] [address] [address] [place] [address] Phone: Fax: Referral ID Status Reason Start Date Expiration Date Visits V isits Requested Authorized [id number] Specialty 1 1 Report Received Encounter Details Date Type Department Care Team Description 03/20/2021 Procedure visit [facility] - Catalino Garrett Ch ronic pain of right knee (Primary Dx); [facility] DDD (degenerative disc disease), cervica l; [facility] [address] Sacroiliitis ([facility]) Interventional Pain [address] [place], [place] [address] [place], [place] [phone] [address] Social History Tobacco Use Types Packs/Day [...] been in contact with No / Unsure 03/20/2021 7:46 EDT someone who was confirmed or suspected to have Coronavirus / COVID-19? documented as of this encounter Last Filed Vital Signs Vital Sign Reading Time Taken Comments Blood Pressure 117/73 03/20/2021 0857 EDT Pulse 65 03/20/2021 0857 EDT Temperature 35.7 ??C (96.2 ??F) 03/20/2021 0746 EDT Respiratory Rate 17 03/20/2021 0857 EDT Oxygen Saturation 100% 03/20/2021 0746 EDT Inhaled Oxygen Concentration - - Weight [...] as of this encounter Patient Instructions Patient InstructionsAiyana Vasques RN - 03/20/2021 8:00 EDT [facility] [address] [address] Patient Instructions You have had your Right Knee Injection with Monovisc. The purpose of this procedure has been to place medication which may help relieve your pain. Steroid may be used to decrease the swelling and nerveirritation which may be causing your pain. The [...] immediately. ??? If you develop increasingly severe knee pain, continued numbness or weakness of the leg, please call our office immediately. Instructions for follow-up If you have any questions about your block, please call Patient Education Topic: Method: Handout and Verbal Taught to: Patient Barriers: None Outcomes: independent and verbalized understanding ALEXANDER Bronson documented in this encounter Progress Notes Aiyana Vasques RN - 03/20/2021 0800 EDT ATTENTION: An active Time-Out initiated by [...] to sterile prep products, steroids, local anesthetics, or band-aids [Verified] Full team and patient verification of location of pain and procedure to be performed [Verified] Site marked (Region and/or Laterality) [Verified] Presence of Implantable Devices [Verified] Safety devices are in place (Grounding pad, X-rays available, and/or Magnet) [Verified] Consent signed and matches planned procedure [Verified] Active verbal communication by the entire procedural team was completed. [id number] olbrandee, Catalino Brown MD - 03/20/2021 0800 EDT Patient Name: Tia Rooney : 1975 Date of Service: 03/20/2021 Hha: Gerry MEHTA Procedure: Therapeutic intra-articular R knee injection w monovisc Interval History: Patient currently denies any progressive weakness, unexplained fever, trauma or unexplained weight loss. Patient has undergone knee joint injections in the past with Dr. Guadalupe. Details of the current complaint are thoroughly described in my last note.The patient reports no recent changes in the paul racter, quality, or distribution of the pain. There are no recent onset of new associated symptoms such as changes in strength, sensation, or bladder control. Injection History: 03/20/2021: intra-articularR knee joint injection w monovisc 01/12/2021: sacroiliac joint injection bilateral - not [...] multiple b/l SIJ injections going back to 2014 L5-S1 decompression and fusion (2006) Allergies: Allergies [...] known recent infections. Physical Exam: Vitals: BP 122/70 (BP Cuff Location: Right arm, BP Patient Position: Sitting, BP Cuff Sizes: Adult, long) Pulse 84 Temp 35.7 ??C (96.2 ??F) (Tympanic) Resp 16 SpO2 100% General: Patient is alert and oriented, no acute distress Lungs: symmetric chest rise, no evidence of labored breathing Skin: clear, warm, dry and intact and no rashes, bruises or petechiae noted Musculoskeletal: Gait: patient ambulates independently, slowed gait no obvious scoliosis or abnormal curvature of the spine R. Knee: ttp without erythema or swelling, pain with ambulation and w/ passive ROM Assessment?plan: 1. Chronic pain of right knee 2. DDD (degenerative disc disease), cervical 3. Sacroiliitis (HCC-CMS) Proceed with diagnostic and therapeutic intra-articular knee joint injection R Follow up: She has appt for repeat SI jt injection. Not sure if last one helped. At subsequent appt for neck pain, if her SIJ still not improved, will sched f/u to evaluate for another generator of LBP She has R supraspinatus and clavicular pain following something falling on shoulder a few weeks ago.More anterior than normal neck pain. Got x-rays that were unconcerning. If regularly scheduled YSABEL does not improved, will evaluate shoulder and clavical PROCEDURE Written informed consent was obtained after discussing the risks and benefits of intraarticular kneeinjection. The patient was placed supine on the fluoroscopy table and the area overlying the right knee was prepped with chlorhexadine and draped in a sterile fashion. The joint was identifyied by flouroscopy and the soft tissue was anesthetized with 2% lidocaine. A 22 guage 3.5 inch spinal needle wasinserted under fluoroscopic guidance, by a slightly oblique approach, uIsovue 200 contrast was injected under live flouroscopy revealing dye spread throughout the joint capsule. There was no intravascular uptake. After negative aspiration, the joint was injected with entire preperation of monovisc. The needle was then flushed and removed. There were no paresthesias and aspiration was negative at all times. The patient tolerated the procedure well and there were no apparent complications. Written andverbal discharge instructions were reviewed with the patient prior to discharge. Gerry MEHTA oKizzy patton MA - 03/20/2021 0800 EDT [place] [facility] Rooming Note Does patient have a Director Of Health Care Marketing? yes Is patient NPO? (Solids since midnight [...] any type of implanted device? Nerve stimulator in lower back Vaccination: Have you had or are you planning to have a vaccination in the 2 weeks? no Other: documented in this encounter Plan of Treatment Upcoming Encounters Date Type Specialty Care Team Description 06/25/2022 Telemedicine Neurology Kj Gloria MD PhD 1 [facility], Level [address] [place], [place] [address] (Jayjay anaya) 09/06/2022 Procedure visit Pain Medicine Catalino Garrett M D 62 [facility] [address] [place] [address] (Jayjay anaya) 09/21/2022 Office Visit Bariatrics Allen Thompson PA-C [address] [place] [address] [facility], [address] [place], [place] [address] (Wo rk) documented as of this encounter Visit Diagnoses Diagnosis Chronic pain of right knee - Primary DDD (degenerative disc disease), cervica l Degeneration of cervical intervertebral disc Sacroiliitis (HCC) Sacroiliitis, not elsewhere classified documented in this encounter Administered Medications Inactive Administered Medications - up to 3 most recent administrations Medication Order MAR Action Action Date Dose Rate Site hyaluronate sodium, stabilized Given by Other 03/20/2021 8:55 EDT 88 mg (MONOVISC) syringe 88 mg 88 mg, intra-articular, Once (NO Time Specified), 1 dose, Starting on Sat03/20/21 at 0848, Until Sat03/20/21 at 0855, Routine Iohexol (OMNIPAQUE 180) injection 8 mL Given by Other 03/20/2021 8:55 EDT 8 mL 8 mL, intra-articular, NOW X1, 1 dose, On Sat03/20/21 at 0915, Routine documented in this encounter Historical Medications This list may reflect changes made after this encounter. Medication Sig Dispensed Refills Start Date End Date multivitamins (THERAGRAN) Take 5 mL by mouth 0 daily. added in this encounter Care Teams Sales Expert Home Theater Relationship Specialty Start Date End Date Shonda Sánchez, GIULIA PCP - General 03/14/21 01/31/[address] [place] [phone] uJma Herrera MD 12/08/18 [address] [place] [address] documented as of this encounter
--- OUTSIDE RECORDS SUMMARY | 2022-06-15 07:52 | XMS_ITS | Encounter Summary ---
:1975 Author Organization [facility] Address [address] [place] [address] Care Team Providers Name Role Phone Juma Herrera MD Unavailable Unavailable Juma Herrera MD Primary Care Provider Unavailable Reason for Visit Reason Onset Date Comments Appointment Related 01/05/2021 Encounter Details Date Type Department Care Team Description 01/05/2021 Telephone [facility] - Millie Nunez RN Ap pointment Related [facility] Interventional Pain [address] [place] [address] Social History Tobacco Use Types Packs/Day Years [...] been in contact with No / Unsure 12/19/2020 16:23 EDT someone who was confirmed or suspected [...] this encounter Miscellaneous Notes Telephone Encounter - Millie Nunez RN - 01/05/2021 1524 EDT RN call to pt who verbalized understanding of following in preparation of injection appt on 01/12/21: -Patient must have a nascar driver -Patient needs to arrive 45 minutes ahead of procedural start time -states she will arrive as close to 45 min early as possible but lives 1 hour away. -No Vaccines 2 weeks before or after procedures that involve steroids -pt states her 2nd vaccine is scheduled for 01/24 which is 12 days post steroid injection. Per Dr. Garrett, pt to consider changing vaccine date to at least 14 days out or to change steroid injection date. Pt states doesn't think 2 dayswill impact the effect of the vaccine and she plans to keep injection appts as scheduled. Patient is provided clinic phone number [phone] for any additional questions. documented in this encounter Plan of Treatment Upcoming Encounters Date Type Specialty Care Team Description 06/25/2022 Telemedicine Neurology Kj Gloria MD PhD 1 [facility] Level [address] [place], [place] [address] (Jayjay anaya) 09/06/2022 Procedure visit Pain Medicine Catalino Garrett M D 62 [facility] [address] [place] [address] (Jayjay anaya) 09/21/2022 Office Visit Bariatrics Allen Thompson PA-C [address] [place] A venue [facility], [facility], [address] [place], [place] [address] (Wo rk) documented as of this encounter Visit Diagnoses Not on filedocumented in this encounter Care Teams Security Installation Technician Relationship Specialty Start Date End Date Juma Herrera MD PCP - General 01/07/19 03/13/21 Juma Herrera MD 12/08/18 [address] [place] [address] documented as of this encounter
--- OUTSIDE RECORDS SUMMARY | 2022-06-15 07:52 | XMS_ITS | Encounter Summary ---
:1975 Author Organization [facility] Address [address] [place] [address] Care Team Providers Name Role Phone Juma Herrera MD Unavailable Unavailable Juma Herrera MD Primary Care Provider Unavailable Encounter Details Date Type Department Care Team Description 07/27/2019 - Hospital Encounter [facility] X ray 07/28/2019 [address] [place], [place] [phone] Social History Tobacco Use Types Packs/Day Years [...] Sig Dispensed Refills Start Date End Date cortisone acetate (CORTISONE Inject 1 Dose 0 IM) into the muscle every 3 months. duloxetine (CYMBALTA) 30 mg Take 90 mg by mouth daily Take with 60mg cap to =90mg dose 0 05/16/2011 capsule MEDICAL MARIJUANA as needed. 0 methylphenidate (RITALIN SR; Take by mouth 2 0 METADATE ER; METHYLIN ER) 20 times daily. mg SR tablet Takes 20 mg every morning, 20 mg every afternoon, 10 mg every evening. methylphenidate Take 10 mg by 0 (RITALIN;METHYLIN) 5 mg mouth 2 times tablet daily. pregabalin (LYRICA) 50 mg Take 2 Caps by 180 Cap 3 2011 capsule mouth 3 times daily. prochlorperazine (COMPAZINE) Take 1 Tab by 60 Tab 0 08/04 10 mg tabletIndications: S/P mouth every 6 laparoscopic sleeve hours as needed gastrectomy, for Nausea Gastroesophageal reflux disease without esophagitis LORazepam (ATIVAN) 0.5 mg Take 0.5 mg by 0 05/17/2022 tablet mouth at bedtime. omeprazole (PRILOSEC) 20 mg Take 2 Caps by 60 Cap 3 08/0409/22/2021 capsuleIndications: S/P mouth daily laparoscopic sleeve gastrectomy, Gastroesophageal reflux disease without esophagitis oxyCODONE (ROXICODONE) 5 mg Take 2 Tabs by 0 /02/201605/17/2022 immediate release tablet mouth every 4 hours Hold for now while taking liquid form Daily Max: 60 mg pediatric multivitamin Take 1 Tab by 0 09/07/2015 05/17/2022 (JUAN CHEW VIT) chewable mouth daily Hold tablet for 2 weeks rizatriptan (MAXALT) 10 mg Take 10 mg by 0 12/18/2021 tablet mouth once as needed. May repeat in 2 hours if needed SUMAtriptan succinate 3 Inject into the 0 02/21/2021 mg/0.5 mL pen injector skin three times a week. documented as of this encounter Discharge Disposition Disposition Code Departure Means Destination Home or Self Care documented in this encounter Plan of Treatment Upcoming Encounters Date Type Specialty Care Team Description 06/25/2022 Telemedicine Neurology Kj Gloria MD PhD 1 [facility], Level 2 [place], [place] [address] (Wo rk) 09/06/2022 Procedure visit Pain Medicine Catalino Garrett M D [address] [facility] [address] [place] [address] (Wo rk) 09/21/2022 Office Visit Bariatrics Allen Thompson PA-C [address] [place] A venue [facility], Level [address] [place], [place] [address] (Wo rk) documented as of this encounter Procedures Procedure Name Priority Date/Time Associated Diagnosis Comme nts PAIN CLINIC FL Routine 07/27/2019 9:52 EST Result s for this LUMBAR INJECTION procedure a re in the results section. documented in this encounter Results PAIN CLINIC FL LUMBAR INJECTION (07/27/2019 9:52 EST) Specimen Narrative 07/27/2019 9:52 EST This is a non-reportable exam. documented in this encounter Visit Diagnoses Not on filedocumented in this encounter Care Teams Pharmacy Resident Relationship Specialty Start Date End Date Juma Herrera MD PCP - General 01/07/19 03/13/21 Juma Herrera MD 12/08/[address] [facility] [address] documented as of this encounter
--- OUTSIDE RECORDS SUMMARY | 2022-06-15 07:52 | XMS_ITS | Encounter Summary ---
:1975 Author Organization [facility] Address [address] [place] [address] Care Team Providers Name Role Phone Juma Herrera MD Unavailable Unavailable Juma Herrera MD Primary Care Provider Unavailable Reason for Visit Reason Onset Date Comments Medication Management 03/09/2021 Encounter Details Date Type Department Care Team Description 03/09/2021 Telephone [facility] Kj Gloria, Kristian ication Management Neurology - S Lorna bergeron MD PhD [address] [phone] [facility] 2 [place] [address] (Wo rk) Social History Tobacco Use Types [...] this encounter Miscellaneous Notes Telephone Encounter - Milena Mccarthy RN - 03/09/2021 1543 EDT PA has been approved Quantity Limit case denied- 1 dose for 28 days When the pharmacy runs the Rx through for 1 dose every 30 days, it is approved Redetermination case filed to approve 1 dose for every 28 days since this is the way the medication is prescribed and the way it was approved for use by the FDA. [id number]- appeal to pharmacist; decision within 72 hours. elephone Encounter - Shane Benitez - 03/09/2021 0824 EDT Jeferson calling to look for some clarification on medication Aimovig. . The PA has been approved however he is looking for some clarification on the quantity limit of PA and how much the Is recommending. Please call back to discuss documented in this encounter Plan of Treatment Upcoming Encounters Date Type Specialty Care Team Description 06/25/2022 Telemedicine Neurology Kj Gloria MD PhD [address] [address] (Jayjay anaya) 09/06/2022 Procedure visit Pain Medicine Catalino Garrett M D 62 [facility] [address] [place] [address] (Jayjay anaya) 09/21/2022 Office Visit Bariatrics Allen Thompson, ELISABETH [address] [place] [address], [facility] 5 [place], [place] [address] (Wo rk) documented as of this encounter Visit Diagnoses Not on filedocumented in this encounter Care Teams Color Blender Relationship Specialty Start Date End Date Juma Herrera MD PCP - General 01/07/19 03/13/21 Juma Herrera MD 12/08/18 [address] [place] [address] documented as of this encounter
--- OUTSIDE RECORDS SUMMARY | 2022-06-15 07:52 | XMS_ITS | Encounter Summary ---
:1975 Author Organization [facility] Address [address] [place] [address] Care Team Providers Name Role Phone Juma Herrera MD Unavailable Unavailable Juma Herrera MD Primary Care Provider Unavailable Shonda Sánchez NP Primary Care Provider Reason for Visit Reason Onset Date Comments New Patient Visit 11/14/2020 Zoom Encounter Details Date Type Department Care Team Description 11/14/2020 Telephone [facility] Kj Gloria, New Patient Visit Neurology - S Lorna bergeron MD PhD (Zoom) [address] [phone] [facility] 2 [place] [address] (Wo rk) Social History Tobacco [...] this encounter Miscellaneous Notes Telephone Encounter - Candida Hankins - 11/14/2020 1046 EDT Spoke to Tia, yadira NPV via Televideo with Dr. Gloria on 02/21/21 at 9 AM. Email - [email or web address] [phone] Meeting ID: [id number] Password: [id number] documented in this encounter Plan of Treatment Upcoming Encounters Date Type Specialty Care Team Description 06/25/2022 Telemedicine Neurology Kj Gloria MD PhD 1 [facility] 2 [place], [place] [address] (Jayjay anaya) 09/06/2022 Procedure visit Pain Medicine Catalino Garrett M D 62 [facility] [address] [place] [address] (Jayjay anaya) 09/21/2022 Office Visit Bariatrics Allen Thompson PA-C 111 [facility] venue [facility], [facility], Level [address] [place], [place] [address] (Jayjay anaya) documented as of this encounter Visit Diagnoses Not on filedocumented in this encounter Care Teams Stoneworker Relationship Specialty Start Date End Date Juma Herrera MD PCP - General 01/07/19 03/13/21 Shonda Sánchez NP PCP - General 03/14/21 01/31/[address] [place] [address] Juma Herrera MD 12/08/[address] [facility] [place] [address] documented as of this encounter
--- OUTSIDE RECORDS SUMMARY | 2022-06-15 07:52 | XMS_ITS | Encounter Summary ---
:1975 Author Organization [facility] Address [address] [place] [address] Care Team Providers Name Role Phone Juma Herrera MD Unavailable Unavailable Juma Herrera MD Primary Care Provider Unavailable Reason for Visit Reason Onset Date Comments Appointment Related 10/25/2020 Encounter Details Date Type Department Care Team Description 10/25/2020 Telephone [facility] - Catalino Garrett MD Appointment Related [address] Interventional Pain [address] [address] [place] [address] [phone] Social History Tobacco Use Types Packs/Day Years [...] been in contact with No / Unsure 11/17/2020 9:03 EDT someone who was confirmed or suspected [...] Notes Telephone Encounter - Fang Collazo - 10/25/2020 1139 EST Patient did not want to schedule an appointment for the knee and hand pain. She stated that it is just arthritis and it is the neck and the back that is problematic. She will ask Dr. Garrett about this when she comes in for 11/17 cervical procedure elephone Encounter - Millie Nunez RN - 10/25/2020 1106 EST Received referral request to eval right knee, right hand pain. Pt has neurology referral for migraine. Schedule ext. follow up Injection History: Scheduled: 11/17/20 YSABEL 11/06/2019: sacroiliac joint injection bilateral 07/27/19: b/l SI Joint inj - 90% improvement in LBP x 3 months 01/28/19: C6C7 CUAUHTEMOC - 80% for 9 months 09/15/18: C6C7 CUAUHTEMOC - 80% relief for 3 months elephone Encounter - Molly Crawford - 10/25/2020 1002 EST PCP note in scans:PCP Note 10/20/2020 for Interventional Pain. Requesting evaluation for pts pain in right knee, right hand, neck and migraine. PT coming in 11/17/[address] Garrett for Cervical Epidural. documented in this encounter Plan of Treatment Upcoming Encounters Date Type Specialty Care Team Description 06/25/2022 Telemedicine Neurology Kj lGoria MD PhD 1 [facility], Level 2 [place], [place] [address] (Wo rk) 09/06/2022 Procedure visit Pain Medicine Catalino Garrett M D 62 [facility] [address] [place] [address] (Wo rk) 09/21/2022 Office Visit Bariatrics Allen Thompson, PALizettC 111 [facility] venue [facility], [facility], Level 5 [place], [place] [address] (Wo rk) documented as of this encounter Visit Diagnoses Not on filedocumented in this encounter Care Teams Engineering Lecturer Relationship Specialty Start Date End Date Juma Herrera MD PCP - General 01/07/19 03/13/21 Juma Herrera MD 12/08/18 [address] [place] [address] documented as of this encounter
--- OUTSIDE RECORDS SUMMARY | 2022-06-15 07:52 | XMS_ITS | Encounter Summary ---
:1975 Author Organization [facility] Address [address] [place] [address] Care Team Providers Name Role Phone Juma Herrera MD Unavailable Unavailable Juma Herrera MD Primary Care Provider Unavailable Reason for Visit Reason Onset Date Comments Prior Auth, Other (i.e. radiology, etc.) 07/28/2019 Encounter Details Date Type Department Care Team Description 07/28/2019 Telephone [facility] - Catalino Garrett MD Prior Auth, Other [facility] [address] (i[address]e. radiology, etc.) [facility] [address] Interventional Pain [address] [place] [address] [place], [place] [address] Social History Tobacco Use Types Packs/Day Years [...] encounter Miscellaneous Notes Telephone Encounter - Millie Machado - 07/29/2019 1541 EST ABN will have to be done after the first of the year as pt is due to come in October. A Recall has been placed. When pt calls to set up his repeat bilateral SI joint inj (around 10/27/2019) with Dr. Garrett, please schedule then sent to the PA pool for current ABN. elephone Encounter - Mica Souza - 07/28/2019 0843 EST Patient needs to be scheduled for a repeat bilateral SI joint inj (around 10/27/2019) per AVS at last office visit on 07/27/2019. Patient uses Medicare for primary insurance. Will screen for ABN. documented in this encounter Plan of Treatment Upcoming Encounters Date Type Specialty Care Team Description 06/25/2022 Telemedicine Neurology Kj Gloria MD PhD 1 [facility], Level 2 [place], [place] [address] (Jayjay anaya) 09/06/2022 Procedure visit Pain Medicine Catalino Garrett M D 62 [facility] [address] [place] [address] (Jayjay anaya) 09/21/2022 Office Visit Bariatrics Allen Thompson, ELISABETH [address] [place] A venue [facility], [facility], Level [address] [place], [place] [address] (Wo rk) documented as of this encounter Visit Diagnoses Not on filedocumented in this encounter Care Teams Dispensing Lead Relationship Specialty Start Date End Date Juma Herrera MD PCP - General 01/07/19 03/13/21 Juma Herrera MD 12/08/18 [address] [place] [address] documented as of this encounter
--- OUTSIDE RECORDS SUMMARY | 2022-06-15 07:52 | XMS_ITS | Encounter Summary ---
:1975 Author Organization [facility] Address [address] [place] [address] Care Team Providers Name Role Phone Juma Herrera MD Unavailable Unavailable Juma Herrera MD Primary Care Provider Unavailable Reason for Visit Reason Onset Date Comments Appointment Related 10/30/2019 Encounter Details Date Type Department Care Team Description 10/30/2019 Telephone [facility] - Catalino Garrett MD Appointment Related [address] Interventional Pain [address] [address] [place] [address] [phone] Social History Tobacco Use Types Packs/Day Years [...] Notes Telephone Encounter - Mica Souza - 11/02/2019 1051 EST No ABN needed for this appointment. elephone Encounter - Abdiel Chandler - 10/30/2019 1432 EST Reason For Encounter/Call: Appointment Call Details (Specific Reasons/Concerns/Details): Referral came in for Tia, which prompted me to enter a new MRN as her name was different. We schedule her next injection as shown below. She confirmed date/time/location/protocols Last Visit with Our Clinic: 07/27/2019 Next Visit (Return Date/Time/Provider) 11/06/2019 Dr Garrett Prior Authorization in Place - Specify (Yes or No): Please check for ABN for Repeat Bilatearl SI Joint Injection Call Patient Back ??? Specify (Yes or No): Josey Chandler - OSS 10/30/2019 14:32 documented in this encounter Plan of Treatment Upcoming Encounters Date Type Specialty Care Team Description 06/25/2022 Telemedicine Neurology Kj Gloria MD PhD 1 [facility] [address] [place], [place] [address] (Jayjay anaya) 09/06/2022 Procedure visit Pain Medicine Catalino Garrett M D 62 [facility] [address] [place] [address] (Jayjay anaya) 09/21/2022 Office Visit Bariatrics Allen Thompson PA-C [address] [place] [address], [facility], Level [address] [place], [place] [phone] (Wo rk) documented as of this encounter Visit Diagnoses Not on filedocumented in this encounter Care Teams Logistics Management Specialist Relationship Specialty Start Date End Date Juma Herrera MD PCP - General 01/07/19 03/13/21 Juma Herrera MD 12/08/18 [address] [facility] [place] [address] documented as of this encounter
--- OUTSIDE RECORDS SUMMARY | 2022-06-15 07:52 | XMS_ITS | Encounter Summary ---
:1975 Author Organization [facility] Address [address] [place] [address] Care Team Providers Name Role Phone Juma Herrera MD Unavailable Unavailable Shonda Sánchez NP Primary Care Provider Encounter Details Date Type Department Care Team Description 03/20/2021 Hospital Encounter [facility] X ray Knee pain [address] [place], [place] [phone] Social History Tobacco Use Types Packs/Day Years [...] Telemedicine Neurology Kj Gloria MD PhD 1 [facility] Level [address] [place], [place] [address] (Jayjay anaya) 09/06/2022 Procedure visit Pain Medicine Catalino Garrett M D 62 [facility] [address] [place] [address] (Jayjay anaya) 09/21/2022 Office Visit Bariatrics Allen Thompson PA-C 111 [facility], [facility], Level [address] [place], [place] [address] (Jayjay anaya) documented as of this encounter Procedures Procedure Name Priority Date/Time Associated Diagnosis Comme nts PAIN CLINIC FL Routine 03/20/2021 8:57 EDT Knee pain Result s for this PROCEDURE procedure are i n the results section. documented in this encounter Results PAIN CLINIC FL PROCEDURE (03/20/2021 8:57 EDT) Specimen Narrative 03/20/2021 8:57 EDT This is a non-reportable exam. documented in this encounter Visit Diagnoses Diagnosis Knee pain Pain in joint, lower leg documented in this encounter Care Teams Control Supervisor Relationship Specialty Start Date End Date Shonda Sánchez NP PCP - General 03/14/21 01/31/[address] [place] [phone] Juma Herrera MD 12/08/18 [address] [place] [address] documented as of this encounter
--- OUTSIDE RECORDS SUMMARY | 2022-06-15 07:52 | XMS_ITS | Encounter Summary ---
:1975 Author Organization [facility] Address [address] [place] [address] Care Team Providers Name Role Phone Juma Herrera MD Unavailable Unavailable Juma Herrera MD Primary Care Provider Unavailable Reason for Visit Reason Onset Date Comments Prior Auth, Other (i.e. radiology, etc.) 11/06/2019 Encounter Details Date Type Department Care Team Description 11/06/2019 Telephone [facility] - Catalino Garrett MD Prior Auth, Other [facility] [address] radiology[facility] etc[facility] [address] Interventional Pain [address] [place] [address] [place], [place] [address] [facility] [phone] Social History Tobacco Use Types Packs/Day Years [...] Notes Telephone Encounter - Mica Souza - 01/13/2020 1117 EDT Spoke with patient 01/13/2020, let her know to disregard abn that was previously sent for her review.NO ABN NEEDED. elephone Encounter - Mica Souza - 12/29/2019 1350 EDT Spoke with patient 12/29/19 1:35pm, in regards to ABN. She was concerned about how much the procedure would cost if Medicare denied the service. I advised I will send the ABN to her for review, as wellas an application for financial assistance. She will review and contact us with any further questions or concerns. Telephone Encounter - Mica Souza - 12/07/2019 1054 EDT An ABN has been drafted for this appointment. Ready to reach out to patient. elephone Encounter - Mica Souza - 11/10/2019 0927 EDT Will need a signed ABN for this appointment. CPT Code 65836 has no medicare coverage documents. elephone Encounter - Ermelinda Fisher - 11/06/2019 1031 EST Cervical Epidural Steroid Injection Please Obtain Prior Auth Patient is schedued for 01/07/2020 at 9:15am with Dr. Garrett documented in this encounter Plan of Treatment Upcoming Encounters Date Type Specialty Care Team Description 06/25/2022 Telemedicine Neurology Kj Gloria MD PhD 1 [facility] Level 2 [place], [place] [phone] (Wo rk) 09/06/2022 Procedure visit Pain Medicine Catalino Garrett M D 62 [facility] [address] [place] [address] (Wo rk) 09/21/2022 Office Visit Bariatrics Allen Thompson PA-C [address] [place] [address], [facility], Level [address] [place], [place] [address] (Wo rk) documented as of this encounter Visit Diagnoses Not on filedocumented in this encounter Care Teams Visual Merchandise Manager Relationship Specialty Start Date End Date Juma Herrera MD PCP - General 01/07/19 03/13/21 Juma Herrera MD 12/08/18 [address] [place] [address] documented as of this encounter
--- OUTSIDE RECORDS SUMMARY | 2022-06-15 07:52 | XMS_ITS | Encounter Summary ---
:1975 Author Organization [facility] Address [address] [place] [address] Care Team Providers Name Role Phone Juma Herrera MD Unavailable Unavailable Juma Herrera MD Primary Care Provider Unavailable Reason for Visit Reason Comments Knee Pain bilateral but most right Encounter Details Date Type Department Care Team Description 12/19/2020 Office Visit [facility] - Catalino Garrett, Chron ic pain of right knee (Primary Dx); [facility] Sacroiliitis ([facility]); [address] DDD (degenerative disc disease), cervica l Interventional Pain [address] Maldonado Guillen [place], [place] [address] [place], [place] [phone] Social History Tobacco Use Types Packs/Day [...] Sign Reading Time Taken Comments Blood Pressure 135/71 12/19/2020 1621 EDT Pulse 86 12/19/2020 1621 EDT Temperature 35.9 ??C (96.6 ??F) 12/19/2020 1621 EDT Respiratory Rate 17 12/19/2020 1621 EDT Oxygen Saturation 99% 12/19/2020 1621 EDT Inhaled Oxygen Concentration - - Weight [...] encounter Progress Notes Catalino Garrett MD - 12/19/2020 1630 EDT OP PAIN CONSULT Patient Name: Tia Rooney Date of Service: 12/27/2020 Chief Complaint: Chief Complaint Patient presents with ??? Knee Pain bilateral but most right Physician Requesting Consultation: Juma Herrera MD History of Present Illness: Ms. Tia Rooney is a 45 y.o. female with past medical history listed below who presents to the pain clinic concerning chronic . How long pain has been present: years Location of Pain: right knee Referred/Radicular Pain Symptoms: no Description of Pain: sharp Activities that worsen pain: walking, standing, stairs, exercise Activities that improves pain: inactivity Functional limitations: difficulty maintaining physical activity Diagnostics: no imaging of knees, has undergone knee injections which was helpful Patient currently denies any bowel and/or bladder incontinence, progressive weakness, saddle numbness, unexplained fever, trauma or unexplained weight loss. Inj hx 11/17/20: cervical epidural - 80% improvement of [...] Current Medications: Current Outpatient Medications Medication ??? calcium carbonate/vitamin D3 (VITAMIN D-3 ORAL) ??? cortisone acetate (CORTISONE IM) ??? duloxetine (CYMBALTA) 30 mg capsule ??? LORazepam (ATIVAN) 0.5 mg tablet ??? MAGNESIUM ORAL ??? MEDICAL MARIJUANA ??? methylphenidate (RITALIN SR; METADATE ER; METHYLIN ER) 20 mg SR tablet ??? methylphenidate (RITALIN;METHYLIN) 5 mg tablet ??? omeprazole (PRILOSEC) 20 mg capsule ??? oxyCODONE (ROXICODONE) 5 mg immediate release tablet ??? pediatric multivitamin (JUAN CHEW VIT) chewable tablet ??? pregabalin (LYRICA) 50 mg capsule ??? prochlorperazine (COMPAZINE) 10 mg tablet ??? rizatriptan (MAXALT) 10 mg tablet ??? SUMAtriptan succinate 3 mg/0.5 mL pen injector No current facility-administered medications for this visit. Past Medical HX: Past Medical History: Diagnosis Date ??? Anxiety ??? Arthritis ??? Back pain ??? Bipolar disorder (HCC-CMS) ??? Breathing problem ??? Depression ??? Diabetes mellitus (HCC-CMS) ??? Drug abuse (HCC-CMS) ??? Environmental allergies ??? Eye problem ??? Generalized headaches ??? Headache(784.0) ??? Heart disease ??? History of substance abuse (HCC-CMS) ??? Hypertension ??? Kidney disease ??? Mental disorder ??? Nervousness(799.21) ??? Numbness ??? Personality disorder (HCC-CMS) ??? Plantar fasciitis ??? PTSD (post-traumatic stress disorder) ??? Tarsal tunnel syndrome Past Surgical HX: Past Surgical History: Procedure Laterality Date ??? BACK SURGERY ??? CHOLECYSTECTOMY ??? LAMINECTOMY L5-S1 Dr. Bowesr 1999 ??? SPINAL FUSION L5-S1 Dr. Child 2006 ??? TUBAL LIGATION Past Social HX: Social History Socioeconomic History ??? Marital status: Spouse name: Not on file ??? Number of children: Not on file ??? Years of education: Not on file ??? Highest education level: Not on file Occupational History ??? Not on file Social Needs ??? Financial resource strain: Not on file ??? Food insecurity Worry: Not on file Inability: Not on file ??? Transportation needs Medical: Not on file Non-medical: Not on file Tobacco Use ??? Smoking status: Former Smoker Quit date: 01/13/2009 Years since quittin.9 ??? Smokeless tobacco: Never Used Substance and Sexual Activity ??? Alcohol use: Yes Alcohol/week: 0.0 standard drinks Comment: very rarely ??? Drug use: No ??? Sexual activity: Not on file Lifestyle ??? Physical activity Days per week: Not on file Minutes per session: Not on file ??? Stress: Not on file Relationships ??? Social connections Talks on phone: Not on file Gets together: Not on file Attends scientologist service: Not on file Active member of club or organization: Not on file Attends meetings of clubs or organizations: Not on file Relationship status: Not on file ??? Intimate partner violence Fear of current or ex partner: Not on file Emotionally abused: Not on file Physically abused: Not on file Forced sexual activity: Not on file Other Topics Concern ??? Not on file Social History Narrative ??? Not on file Family HX: Patient denies any family history of chronic pain, immunological or genetic syndromes that is contributory to the patient's current symptoms. Review of Systems: Except for those reported in HPI, no other pertinent positives reported Physical Exam: Vitals: BP 135/71 (BP Cuff Location: Left arm, BP Patient Position: Sitting, BP Cuff Sizes: Adult, large) Pulse 86 Temp 35.9 ??C (96.6 ??F) (Temporal) Resp 17 SpO2 99% General: Patient is alert and oriented x3, no acute distress Neuro: Cranial nerves II-XII grossly intact and symmetric Cardio: Palpable pulses bilaterally Lungs: symmetric chest rise, no evidence of labored breathing Skin: clear, warm, dry and intact and no rashes, bruises or petechiae noted Musculoskeletal: Gait: patient ambulates independently, antalgic gait Lower Extremity: strength 5/5 in all keenan muscle groups b/l, R knee ttp with painful active ROM Assessment/Plan: 1. Sacroiliitis (HCC-CMS) 2. DDD (degenerative disc disease), cervical 3. Chronic pain of right knee May benefit from right IA knee injection, but already undergoes YSABEL and b/l SIJ injection, so usingsteroids on yet another painful body part could lead to to dose-dependent negatvie side effect profile including immunocompromise, HPA axis derangement, accelerated osteoporosis, blood glucose elevation, etc. Therefore would do hyaluronic acid injection into right knee, but not steroid. She is scheduled for upcoming repeat b/l SI joint injection. Gerry MEHTA I spent a total of 44 minutes on the date of this encounter meeting with the patient and reviewing documentation/coordinating care as described in the above note. No procedures were performed at the time of the visit. documented in this encounter Plan of Treatment Upcoming Encounters Date Type Specialty Care Team Description 06/25/2022 Telemedicine Neurology Kj Gloria MD PhD 1 [facility] Level 2 [place], [place] [address] (Jayjay anaya) 09/06/2022 Procedure visit Pain Medicine Catalino Garrett M D 62 [facility] [address] [place] [address] (Jayjay anaya) 09/21/2022 Office Visit Bariatrics Allen Thompson PA-C 111 [facility], [address] [place], [place] [address] (Wo rk) documented as of this encounter Visit Diagnoses Diagnosis Chronic pain of right knee - Primary Sacroiliitis (HCC) Sacroiliitis, not elsewhere classified DDD (degenerative disc disease), cervica l Degeneration of cervical intervertebral disc documented in this encounter Care Teams Box Car Loader Relationship Specialty Start Date End Date Juma Herrera MD PCP - General 01/07/19 03/13/21 Juma Herrera MD 12/08/18 [address] [place] [address] documented as of this encounter
--- OUTSIDE RECORDS SUMMARY | 2022-06-15 07:52 | XMS_ITS | Encounter Summary ---
:1975 Author Organization [facility] Address [address] [place] [address] Care Team Providers Name Role Phone Juma Herrera MD Unavailable Unavailable Juma Herrera MD Primary Care Provider Unavailable Encounter Details Date Type Department Care Team Description 11/06/2019 Travel Social History Tobacco Use Types Packs/Day [...] Telemedicine Neurology Kj Gloria MD PhD 1 [facility], Level [address] [place], [place] [phone] (Wo rk) 09/06/2022 Procedure visit Pain Medicine Catalino Garrett M D 62 [facility] [address] [place] [address] (Wo rk) 09/21/2022 Office Visit Bariatrics Allen Thompson, PALizettC 111 [facility], [facility], [address] [place], [place] [address] (Wo rk) documented as of this encounter Visit Diagnoses Not on filedocumented in this encounter Care Teams Nursing Resident Relationship Specialty Start Date End Date Juma Herrera MD PCP - General 01/07/19 03/13/21 Juma Herrera MD 12/08/18 [address] [place] [address] documented as of this encounter
--- OUTSIDE RECORDS SUMMARY | 2022-06-15 07:52 | XMS_ITS | Encounter Summary ---
:1975 Author Organization [facility] Address [address] [place] [address] Care Team Providers Name Role Phone Juma Herrera MD Unavailable Unavailable Juma Herrera MD Primary Care Provider Unavailable Shonda Sánchez NP Primary Care Provider Encounter Details Date Type Department Care Team Description 03/10/2021 Ambulatory Pharmacy [facility] Dragan Rodriguez [facility] Ambulatory Pharmacy - [address] [facility] [address] [place] [phone] Social History Tobacco Use Types Packs/Day Years [...] encounter Progress Notes Charlotte Bhatti RPH - 03/10/2021 1302 EDT [facility] Neurology Clinic Medication Therapy Initiation Note Tia Rooney is a 45 y.o. female who will be starting treatment with Aimovig 70mg for chronic migraine. Planned Start Date: 03/20/21, Duration: until lack of efficacy after an adequate medication trial orunacceptable adverse effects support discontinuation. I performed a complete review of the patient???s medical record, including medications, immunizations, and allergies. Patient mentioned she uses Colace, so I recommended she take that regularly in case constipation becomes an issue and to let Dr. Gloria know if it is unmanageable. Patient verbalized understanding. Assessment & Plan Indication, effectiveness, safety, and convenience of specialty medications were reviewed today. Method of Education: Telephone Taught to: Patient Counseled the patient on the following: Therapeutic rationale / Goals of therapy discussed Dosage and administration discussed Safe handling, storage, and disposal reviewed Therapy contraindications discussed Possible adverse effects and management discussed - injection site reaction, constipation, high blood pressure Possible drug and prescription drug interactions discussed Adherence and missed doses discussed Adherence tools reviewed: calendar Lab monitoring and follow-up discussed. Patient will call clinic to schedule follow-up. Additional self-management strategies reviewed. Information regarding Aimovig 70mg and injection resources on swine genetics researcher website provided to patient. She declined injection training as she lives far away, and has been using sumatriptan injections.We reviewed the autoinjector steps for administration and she will watch the videos online. Barriers to Education: None Outcomes of Education: Independent, Verbalized understanding Follow up: - Phone call: 3 weeks for follow-up - Clinic appointment: Thanh ALDRIDGEectronicrupesh signed by Charlotte Bhatti RPH at 03/14/2021 12:06 EDTdocumented in this encounter Plan of Treatment Upcoming Encounters Date Type Specialty Care Team Description 06/25/2022 Telemedicine Neurology Kj Gloria MD PhD 1 [facility], Level 2 [place], [place] [phone] (Wo rk) 09/06/2022 Procedure visit Pain Medicine Catalino Garrett M D 62 [facility] [address] [place] [address] (Wo rk) 09/21/2022 Office Visit Bariatrics Allen Thompson, ELISABETH 111 [facility], [facility], [address] [place], [place] [address] (Wo rk) documented as of this encounter Visit Diagnoses Not on filedocumented in this encounter Care Teams Store Clerk Cashier Relationship Specialty Start Date End Date Juma Herrera MD PCP - General 01/07/19 03/13/21 Shonda Sánchez NP PCP - General 03/14/21 01/31/[address] [place] [phone] Juma Herrera MD 12/08/18 [address] [place] [address] documented as of this encounter
--- OUTSIDE RECORDS SUMMARY | 2022-06-15 07:52 | XMS_ITS | Encounter Summary ---
:[address] [facility] Address [address] [place] [address] Care Team Providers Name Role Phone Juma Herrera MD Unavailable Unavailable Juma Herrera MD Primary Care Provider Unavailable Reason for Visit Reason Comments Pain everywhere Office Procedure (Routine) - Specialty Report Received Specialty Diagnoses / Procedures Referred By Contact Refer red To Contact Pain Medicine Diagnoses Other cervical disc degeneration, unspecified cervical region Sacroiliitis, not elsewhere classified ([facility]) Si joint inj [facility] Catalino Garrett MD Procedures NC INJECT SI JOINT ARTHRGRPHY&/ANES/STEROID W/IMAGE PROCEDURE SHORT [address] [place] [address] [address] [place] [address] Phone: Fax: Referral ID Status Reason Start Date Expiration Date Visits V isits Requested Authorized [id number] Specialty 1 1 Report Received Encounter Details Date Type Department Care Team Description 01/12/2021 Procedure visit [facility] - Catalino Garrett Sa croiliitis ([facility]) (Primary Dx); [facility] DDD (degenerative disc disease), cervica l; [facility] [address] [place] [address] Chronic pain of right knee Interventional Pain [address] [place], [place] [address] [place], [place] [phone] Social History Tobacco Use Types Packs/Day [...] been in contact with No / Unsure 01/12/2021 8:13 EDT someone who was confirmed or suspected to have Coronavirus / COVID-19? documented as of this encounter Last Filed Vital Signs Vital Sign Reading Time Taken Comments Blood Pressure 130/75 01/12/2021 0920 EDT Pulse 61 01/12/2021 0920 EDT Temperature 35.8 ??C (96.4 ??F) 01/12/2021 0818 EDT Respiratory Rate 16 01/12/2021 0920 EDT Oxygen Saturation 100% 01/12/2021 0818 EDT Inhaled Oxygen Concentration - - Weight [...] as of this encounter Patient Instructions Patient Millie Moreno RN - 01/12/2021 9:00 EDT [facility] [address] [address] Patient Instructions You have had your bilateral [...] Barriers: None Outcomes: independent and verbalized understanding Signature: Millie Brumfield RN documented in this encounter Progress Notes Catalino Garrett MD - 01/12/2021 0900 EDT Patient Name: Tia Rooney : 1975 Date of Service: 01/12/2021 Requesting physician: Dr. Herrera Chemical Production Machine Operator: Catalino Garrett MD Media Marketing Coordinator: none Procedure: Diagnostic and Therapeutic sacroiliac joint injection bilateral Interval History: As stated has a history of right L5-S1 discectomy and decompression (1999) followed by L5-S1 decompression and fusion (2006). She has failed physical therapy and chiropractor care. She states the painis below her surgical scar. She points to her bilateral buttock region. 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 There are no recent onset of new associated symptoms such as changes in strength, sensation, or bladder control. All previous medical records including current medications, anticoagulation status, any signs of current infection, and new imaging were reviewed. Also returning is her right neck and shoulder pain which was treated very well with a cervical epidural (see below). These symptoms are described in notes from [facility] and are returning in the same distribution and quality as previously. We discussed her right knee pain last visit which is discussed in last f/u note, for which she has undergone knee injections that were helpful. We should do an injection in her right knee with hyaluronic acid (avoiding steroid b/c she already gets 2 body parts treated with steroid injections) Injection History: 01/12/2021: sacroiliac joint injection bilateral 12/19/20: f/u discuss R knee pain 11/17/20: [...] ??? busPIRone (BUSPAR) 5 mg tablet Take 5 mg by mouth 2 times daily. ??? calcium carbonate/vitamin D3 (VITAMIN D-3 ORAL) Take by mouth. ??? cortisone acetate (CORTISONE IM) Inject 1 Dose into the muscle every 3 months. ??? duloxetine (CYMBALTA) 30 mg capsule Take 90 mg by mouth daily Take with 60mg cap to =90mg dose ??? LORazepam (ATIVAN) 0.5 mg tablet Take 0.5 mg by mouth at bedtime ??? MAGNESIUM ORAL Take 500 mg by mouth. ??? MEDICAL MARIJUANA as needed. ??? methylphenidate (RITALIN SR; METADATE ER; METHYLIN ER) 20 mg SR tablet Take by mouth 2 times daily. Takes 20 mg every morning, 20 mg every afternoon, 10 mg every evening. ??? methylphenidate (RITALIN;METHYLIN) 5 mg tablet Take 10 mg by mouth 2 times daily. ??? omeprazole (PRILOSEC) 20 mg capsule Take 2 Caps by mouth daily 60 Cap 3 ??? oxyCODONE (ROXICODONE) 5 mg immediate release tablet Take 2 Tabs by mouth every 4 hours Hold fornow while taking liquid form Daily Max: 60 mg (Patient not taking: Reported on 01/12/2021) ??? pediatric multivitamin (JUAN CHEW VIT) chewable tablet Take 1 Tab by mouth daily Hold for 2 weeks ??? pregabalin (LYRICA) 50 mg capsule Take 2 Caps by mouth 3 times daily. 180 Cap 3 ??? prochlorperazine (COMPAZINE) 10 mg tablet Take 1 Tab by mouth every 6 hours as needed for Nausea(Patient not taking: Reported on 01/12/2021) 60 Tab 0 ??? rizatriptan (MAXALT) 10 mg tablet Take 10 mg by mouth once as needed. May repeat in 2 hours if needed ??? SUMAtriptan succinate 3 mg/0.5 mL pen injector Inject into the skin three times a week. No current facility-administered medications on file prior to visit. Review of Systems: Negative for any fever, chills, nausea/vomiting, headaches, chest pain, palpitations, shortness of breath, bladder/bowel incontinence. No easy bruising, bleeding, anti-coagulation or known recent infections. Physical Exam: Vitals: BP 131/81 Pulse 89 Temp 35.8 ??C (96.4 ??F) (Temporal) Resp 16 SpO2 100% General: [...] active ROM Assessment: 1. Sacroiliitis (HCC-CMS) 2. DDD (degenerative disc disease), cervical 3. Chronic pain of right knee Plan: Ms. Tia Rooney is a 45 y.o. female that presents to the pain clinic to undergo sacroiliac joint injection in regards to her chronic back pain. All risks, benefits, and alternatives were thoroughly explained to Ms. Tia Rooney who verbally communicated understanding of the management plan. Proceed with sacroiliac joint injection bilateral Followup: next available R knee injection w/ hyaluronate (monovisc), C6C7 CUAUHTEMOC in 6-8 weeks, b/l SIJ inj in 4 months Procedure: The patient gave informed written consent [...] procedure pain report: Pain Score (from Vitals) 01/12/2021 01/12/2021 Initial score 6 - Final score - 6 Location - - Comment - - Gerry MEHTA Millie Nathan RN - 01/12/2021 0900 EDT ATTENTION: An active Time-Out initiated by [...] by the entire procedural team was completed. Candida Carrillo MA - 01/12/2021 0900 EDT [facility] Rooming Note Does patient have a Unhairing Inspector? yes Is patient NPO? (Solids since midnight [...] have any type of implanted device? SCS ? Non working Vaccination: Have you had or are you planning to have a vaccination in the 2 weeks? Coid vaccine in two weeks? Pt unsure of date Other: documented in this encounter Plan of Treatment Upcoming Encounters Date Type Specialty Care Team Description 06/25/2022 Telemedicine Neurology Kj Gloria MD PhD 1 [facility] [address] [place], [place] [phone] (Wo rk) 09/06/2022 Procedure visit Pain Medicine Catalino Garrett M D 62 [facility] [address] [place] [address] (Wo rk) 09/21/2022 Office Visit Bariatrics Allen Thompson, ELISABETH 111 [facility], [address] [place], [place] [phone] (Wo rk) documented as of this encounter Visit Diagnoses Diagnosis Sacroiliitis (HCC) - Primary Sacroiliitis, not elsewhere classified DDD (degenerative disc disease), cervica l Degeneration of cervical intervertebral disc Chronic pain of right knee documented in this encounter Administered Medications Inactive Administered Medications - up to 3 most recent administrations Medication Order MAR Action Action Date Dose Rate Site bupivacaine (PF) (MARCAINE) 0.5% Given by Other 01/12/2021 9:16 EDT 6 mL injection 6 mL 6 mL, intra-articular, NOW X1, 1 dose, On Karen 01/12/21 at 0945, Routine methylPREDNISolone ACETATE (DEPO-MEDROL) Given by Other 021 9:16 EDT 80 mg injection 80 mg 80 mg, intra-articular, NOW X1, 1 dose, On Karen 01/12/21 at 0945, Routine documented in this encounter Historical Medications This list may reflect changes made after this encounter. Medication Sig Dispensed Refills Start Date End Date busPIRone (BUSPAR) 5 mg Take 30 mg by mouth 2 0 tablet times daily. added in this encounter Care Teams Rubber Worker Relationship Specialty Start Date End Date Juma Herrera MD PCP - General 01/07/19 03/13/21 Juma Herrera MD 12/08/18 [address] [place] [address] documented as of this encounter
--- OUTSIDE RECORDS SUMMARY | 2022-06-15 07:52 | XMS_ITS | Encounter Summary ---
:1975 Author Organization [facility] Address [address] [place] [address] Care Team Providers Name Role Phone Juma Herrera MD Unavailable Unavailable Juma Herrera MD Primary Care Provider Unavailable Reason for Visit Reason Comments Back Pain lower Neck Pain Shoulder Pain right Leg Pain bilateral Referral (3 - 10 Business Days) - Authorization Not Required Specialty Diagnoses / Procedures Referred By Contact Refer red To Contact Pain Medicine Diagnoses Back pain, unspecified back location, unspecified back pain laterality, unspecified chronicity [facility] [address] [place] [phone] Referral ID Status Reason Start Expiration Visits Visits Date Date Requested Authorized [id number] Authorization Specialty 1 1 Not Required Services 9 Required Encounter Details Date Type Department Care Team Description 07/27/2019 Procedure visit [facility] - Catalino Garrett Sa croiliitis [facility] ([facility] ([facility] 62 [facility] Dx) Interventional Pain [address] [place], [place] [address] [place], [place] [phone] Social History Tobacco Use Types Packs/Day [...] Sign Reading Time Taken Comments Blood Pressure 122/70 07/27/2019 0940 EST Pulse 65 07/27/2019 0940 EST Temperature 36.5 ??C (97.7 ??F) 07/27/2019 0856 EST Respiratory Rate - - Oxygen Saturation - - Inhaled Oxygen Concentration - - Weight - [...] as of this encounter Patient Instructions Patient InstructionsDigna Elmore RN - 07/27/2019 9:30 EST [facility] [address] [address] Patient Instructions You have had your bilateral sacroiliac joint steroid injection. The purpose of this procedure has been to place medication which may help relieve your pain. Steroid may be used to decrease the swellingand nerve irritation which may be causing your [...] None Outcomes: independent and verbalized understanding Signature: Digna Lopez RN documented in this encounter Progress Notes Catalino Garrett MD - 07/27/2019 0930 EST Attending attestation: I have seen and evaluated the patient with the resident/fellow. I agree with the findings and plan of care documented in the resident's/fellow's note. In addition, I was present and participating during the entire procedure. Catalino Garrett MD Jessica Swain MA - 07/27/2019 0930 EST [facility] Rooming Note Does patient have a Wrapper Sizer? yes Is patient NPO? (Solids since midnight & liquids for 4 hrs) no Blood Thinners: Is patient on Blood Thinners? no If yes, taking? If stopped, who authorized stopping? Related comments: Infections: Any recent infections, fever of illnesses? no If on antibiotics, is it 7-10 days past the date of completion of antibiotics? no : (for females of child-bearing age) Is there a chance current ? Do you have any type of implanted device? Stimulator - back Other: Elo Dinh DO - 07/27/2019 0930 EST Patient Name: Tia Spain : 1975 Date of Service: 07/27/2019 Requesting physician: Kj Child Enrollment Nurse: Catalino Garrett MD Bus Or Truck Garage Mechanic: Elo Manzo DO Procedure: Diagnostic and Therapeutic sacroiliac joint injection bilateral Interval History: Patient presents at the request of Kj Child for sacroiliac joint injection. She has a history of right L5-S1 discectomy and decompression (1999) followed by L5-S1 decompression and fusion (2006). She has failed physical therapy and chiropractor care. She states the pain is below her surgical scar. She points to her bilateral buttock region. 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 Details of the current complaint are thoroughly described in the consultation notes from Kj Child's last encounter including pain onset, location, course, workup, therapeutic attempts, and associated functional limitations. The patient reports no recent changes in the character, quality, or distribution of the pain. There are no recent onset of new associated symptoms such as changes in strength, sensation, or bladder control. All previous medical records including current medications, anticoagulation status, any signs of current infection, and new imaging were reviewed. Injection History: 07/27/2019: sacroiliac joint injection bilateral Allergies: Allergies Allergen Reactions ??? Adhesive Other (See Comments) Skin irritation, paper tape ok ??? Bee Sting [Hymenoptera Allergenic Extract] Swelling Fever and vomiting ??? Codeine Hives and Nausea And Vomiting ??? Other - See Comments Nausea And Vomiting Root beer Current Outpatient Medications on File Prior to Visit Medication Sig Dispense Refill ??? cortisone acetate (CORTISONE IM) Inject 1 Dose into the muscle every 3 months. ??? duloxetine (CYMBALTA) 30 mg capsule Take 90 mg by mouth daily Take with 60mg cap to =90mg dose ??? LORazepam (ATIVAN) 0.5 mg tablet Take 0.5 mg by mouth at bedtime ??? MEDICAL MARIJUANA as needed. ??? methylphenidate [...] liquid form Daily Max: 60 mg (Patient taking differently: Take 10 mg by mouth every6 hours as needed. Hold for now while taking liquid form) ??? pediatric multivitamin (JUAN CHEW VIT) chewable tablet Take 1 Tab by mouth daily Hold for 2 weeks ??? pregabalin (LYRICA) 50 mg capsule Take 2 Caps by mouth 3 times daily. (Patient taking differently: Take 100 mg by mouth as needed. ) 180 Cap 3 ??? prochlorperazine (COMPAZINE) 10 mg tablet Take 1 Tab by mouth every 6 hours as needed for [id number] Tab 0 ??? rizatriptan (MAXALT) 10 mg [...] known recent infections. Physical Exam: Vitals: BP 140/63 Pulse 70 Temp 36.5 ??C (97.7 ??F) (Tympanic) General: Patient is alert and oriented, no [...] of SI joint bilateral, positive SUMIT test Assessment: 1. Sacroiliitis ([facility]) Plan: Ms. Tia Spain is a 44 y.o. female that presents to the pain clinic to undergo sacroiliac joint injection in regards to her chronic back pain. All risks, benefits, and alternatives were thoroughly explained to Ms. Tia Spain who verbally communicated understanding of the management plan. Proceed with sacroiliac joint injection bilateral Followup: as needed for sacroiliac joint Procedure: The patient gave informed written consent [...] procedure pain report: Pain Score (from Vitals) 07/27/2019 07/27/2019 Initial score 7 - Final score - 7 Location - GENERALIZED Comment - - Assessment and plan discussed with attending, MD Elo Mathis DO Pain Fellow documented in this encounter Plan of Treatment Upcoming Encounters Date Type Specialty Care Team Description 06/25/2022 Telemedicine Neurology Kj Gloria MD PhD 1 [facility], [address] [place], [place] [phone] (Wo rk) 09/06/2022 Procedure visit Pain Medicine Catalino Garrett M D 62 [facility] [address] [place] [address] (Wo rk) 09/21/2022 Office Visit Bariatrics Allen Thompson PA-C 111 [facility], [facility], [address] [place], [place] [address] (Wo rk) documented as of this encounter Visit Diagnoses Diagnosis Sacroiliitis (HCC) - Primary Sacroiliitis, not elsewhere classified documented in this encounter Administered Medications Inactive Administered Medications - up to 3 most recent administrations Medication Order MAR Action Action Date Dose Rate Site bupivacaine (PF) (MARCAINE) 0.5% Given by Other 07/27/2019 9:34 EST 6 mL injection 6 mL 6 mL, intra-articular, NOW X1, 1 dose, On Sat07/27/19 at 1000, Routine methylPREDNISolone ACETATE (DEPO-MEDROL) Given by Other 019 9:33 EST 80 mg injection 80 mg 80 mg, intra-articular, NOW X1, 1 dose, On Sat07/27/19 at 1000, Routine documented in this encounter Care Teams Supervisor [employer] Relationship Specialty Start Date End Date Juma Herrera MD PCP - General 01/07/19 03/13/21 Juma Herrera MD 12/08/18 [address] [place] [address] documented as of this encounter
--- OUTSIDE RECORDS SUMMARY | 2022-06-15 07:52 | XMS_ITS | Encounter Summary ---
:1975 Author Organization [facility] Address [address] [place] [address] Care Team Providers Name Role Phone Juma Herrera MD Unavailable Unavailable Juma Herrera MD Primary Care Provider Unavailable Shonda Sánchez NP Primary Care Provider Reason for Visit Reason Onset Date Comments Appointment Related 02/24/2021 Encounter Details Date Type Department Care Team Description 02/24/2021 Telephone [facility] Kj Gloria MD Appointment Related Neurology - S Prospe ct PhD [address] [phone] [facility] [address] [place] [address] (Wo rk) Social History Tobacco [...] Notes Telephone Encounter - Candida Hankins - 03/14/2021 1214 EDT Spoke to Tia, scheduled the FUR via Televideo with Dr. Gloria on 06/27/21 at 11:30 AM Confirmed email - [email or web address] Scheduling Needed elephone Encounter - Ankit Lucia - 02/24/2021 1103 EDT Check out 02/21/21 - return in 4 months Called Tia and left message to call back to schedule Televideo FUR with Dr Gloria due in Jun 2021 Please schedule off the recall appt documented in this encounter Plan of Treatment Upcoming Encounters Date Type Specialty Care Team Description 06/25/2022 Telemedicine Neurology Kj Gloria MD PhD 1 [facility], [address] [place], [place] [phone] (Jayjay anaya) 09/06/2022 Procedure visit Pain Medicine Catalino Garrett M D [address] [place] [address] [address] [place] [address] (Jayjay anaya) 09/21/2022 Office Visit Bariatrics Allen Thompson PA-C [address] [place] [address] [facility], [facility], [address] [place], [place] [address] (Wo rk) documented as of this encounter Visit Diagnoses Not on filedocumented in this encounter Care Teams Collections Clerk Relationship Specialty Start Date End Date Juma Herrera MD PCP - General 01/07/19 03/13/21 Shonda Sánchez NP PCP - General 03/14/21 01/31/[address] [place] [phone] Juma Herrera MD 12/08/18 [address] [facility] [place] [address] documented as of this encounter
--- OUTSIDE RECORDS SUMMARY | 2022-06-15 07:52 | XMS_ITS | Encounter Summary ---
:1975 Author Organization [facility] Address [address] [place] [address] Care Team Providers Name Role Phone Juma Herrera MD Unavailable Unavailable Juma Herrera MD Primary Care Provider Unavailable Reason for Referral Medication Prior Authorization (Routine) - Authorized Specialty Diagnoses / Procedures Referred By Contact Refer red To Contact Pharmacy Diagnoses Chronic migraine without aura without status migrainosus, not intractable Kj Gloria MD Ambulatory Pharmacy PhD [address] [address] [address] [place], [place] Fax: [phone] Referral ID Status Reason Start Expiration Visits Visits Date Date Requested Authorized [id number] Authorized Medication Prior 1 1 Authorization 1 Question Answer Medication to be Prior Authorized: Emgality for migrai ne prevention Comments The purpose of this consult request is t o inform the scheduling staff that a medication needs to be prior-authorized before it is prescribed and/or administered. Reason for Visit Reason Comments New Patient Visit Referral (Routine) - Authorization Not Required Specialty Diagnoses / Procedures Referred By Contact Refer red To Contact Neurology Diagnoses Migraine Shonda Sánchez, DRILLING FIELD SPECIALIST Kj Gloria MD PhD [address] [place] [address] [address] [place] [address] [phone] [place] [address] Phone: Fax: Referral ID Status Reason Start Expiration Visits Visits Date Date Requested Authorized [id number] Authorization Not 1 1 Required Encounter Details Date Type Department Care Team Description 02/21/[address] [facility] Kj Gloria Chr onic migraine Neurology - S PhD without aura without [place] 1 [facility] status migrainosus, [address] [facility] [address] [place] [address] [address], [address] (Primary Dx) [phone] [place] [address] (Wo rk) Social History Tobacco [...] Sig Dispensed Refills Start Date End Date SUMAtriptan Succinate 6 Inject 6 mg into the 6 mL 11 mg/0.5 mL cartridge skin as needed (migraine). Take as directed. documented in this encounter Progress Notes Kj Gloria MD PhD - 02/21/2021 0900 EDT NEUROLOGY CONSULT NOTE Tia Rooney is a 45 y.o.yo female seen in consultation at the request of Shonda Sánchez NP. TELEMEDICINE VIDEO VISIT Today's visit was provided through telemedicine video conferencing: The location of the patient : home The location of the provider: home The following staff and their role did participate in today's encounter visit: Kj Gloria MD PHD The concept of ???Telemedicine?? has been described [...] in patient???s medical or mental health care. I spent a total of > 45 minutes on the date of this encounter meeting with the patient and reviewing documentation/coordinating care as described in the above note. Chief Complaint Patient presents with ??? 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 She was seen for a new patient evaluation via Zoom on 02/21/21. She previously had been followed by Dr Zachery Walters (07/23/12 - 11/07/12) and Dr Dave Ortez ([facility] Headache onset was ~ 7 years old, and increased to 15 or more days per month consistently by age 15.She had her first age 17 and noted increased headache during . Headaches are currently daily, with severe headache ~ 15 days per month. Headaches are typically unilateral, throbbing, increased with exertion, 5-10/10 severity, and may bepresent on awakening and last all day. They may be associated with neck pain, nausea, vomiting, photophobia, phonophobia, allodynia, osmophobia, brain fog, dizziness, or memory impairments. She may expe rience a visual disturbance of heat waves or dark spots prior to, or during, the headache which may last seconds to hours. She may also experience transient right facial weakness or right arm shakes or twitches, which have occurred perhaps ten times over the past 20 years. Past Medical History: Diagnosis Date ??? Anxiety ??? Arthritis ??? Back pain ??? Bipolar disorder ([facility]) ??? Breathing problem ??? Depression ??? Diabetes mellitus ([facility]) ??? Drug abuse ([facility]) ??? Environmental allergies ??? Eye problem ??? Generalized headaches ??? Headache(784.0) ??? Heart disease ??? History of substance abuse ([facility]) ??? Hypertension ??? Kidney disease ??? Mental disorder ??? Nervousness(799.21) ??? Numbness ??? Personality disorder ([facility]) ??? Plantar fasciitis ??? PTSD (post-traumatic stress disorder) ??? Tarsal tunnel syndrome Substance use disorder - cocaine (2327-8437) Chronic prescription opioid use Borderline personality Kidney stone Insomnia, snoring, no gasps, [place] = 3 Heart murmur Asthma Endometriosis GERD TBI (age 4 years) Patient Active Problem List Diagnosis Date Noted ??? Chronic migraine without aura without status migrainosus, not intractable 02/21/2021 ??? Morbid obesity with BMI of 45.0-49.9, adult ([facility]) 03/10/2015 ??? Cervicalgia 09/29/2012 ??? Idiopathic peripheral neuropathy 03/20/2012 ??? Tarsal tunnel syndrome of right side 08/02/2011 ??? 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 Lumbar radiculopathy 10/03/2006 Past Surgical History: Procedure Laterality Date ??? BACK SURGERY ??? CHOLECYSTECTOMY ??? LAMINECTOMY L5-S1 Dr. Bowers 1999 ??? SPINAL FUSION L5-S1 Dr. Child 2006 ??? TUBAL LIGATION Status post gastric sleeve for obesity (09/05/15). Status post L5-S1 fusion (1999, 2006) Status post C6-7 anterior disc / fusion (2012) Outpatient Medications Marked as Taking for the 02/21/21 encounter (Telemedicine) with Kj Gloria MD PHD Medication Sig ??? busPIRone (BUSPAR) 5 mg tablet Take 15 mg by mouth 2 times daily. ??? calcium carbonate/vitamin D3 (VITAMIN D-3 ORAL) Take by mouth. ??? cholecalciferol, Vitamin D3, 25 mcg (1,000 unit) tablet Take 1,000 Units by mouth daily. ??? cortisone acetate (CORTISONE IM) Inject 1 Dose into the muscle every 3 months. ??? diphenhydrAMINE-acetaminophen 25-500 mg tablet Take 1 Tablet by mouth at bedtime as needed. ??? duloxetine (CYMBALTA) 30 mg capsule Take 90 mg by mouth daily Take with 60mg cap to =90mg dose ??? LORazepam (ATIVAN) 0.5 mg tablet Take 0.5 mg by mouth at bedtime ??? MAGNESIUM ORAL Take 500 mg by mouth daily. ??? methylphenidate (RITALIN SR; METADATE ER; METHYLIN ER) 20 mg SR tablet Take by mouth 2 times daily. Takes 20 mg every morning, 20 mg every afternoon, 10 mg every evening. ??? methylphenidate (RITALIN;METHYLIN) 5 mg tablet Take 10 mg by mouth 2 times daily. ??? omeprazole (PRILOSEC) 20 mg capsule Take 2 Caps by mouth daily ??? oxyCODONE (ROXICODONE) 5 mg immediate release tablet Take 2 Tabs by mouth every 4 hours Hold fornow while taking liquid form Daily Max: 60 mg (Patient taking differently: Take 5 mg by mouth 3 times daily. Hold for now while taking liquid form) ??? pediatric multivitamin (JUAN CHEW VIT) chewable tablet Take 1 Tab by mouth daily Hold for 2 weeks ??? potassium chloride (KLOR-CON) 20 mEq packet Take 20 mEq by mouth daily. ??? pregabalin (LYRICA) 50 mg capsule Take 2 Caps by mouth 3 times daily. ??? prochlorperazine (COMPAZINE) 10 mg tablet Take 1 Tab by mouth every 6 hours as needed for Nausea ??? SUMAtriptan succinate 3 mg/0.5 mL pen injector Inject into the skin three times a week. Past medications: indocin, Dilaudid, rizatriptan, acetaminophen, Flexeril, topiramate, gabapentin, propranolol, Zofran, Reglan, meloxicam, cervical block (11/17/20), lumbar block (07/27/19), SI blocks (11/06/19, 01/12/21). Allergies Allergen Reactions ??? Adhesive Other (See Comments) Skin irritation, paper tape ok ??? Bee Sting [Hymenoptera Allergenic Extract] Swelling Fever and vomiting ??? Codeine Hives and Nausea And Vomiting ??? Other - See Comments Nausea And Vomiting Root beer Family History Problem Relation Age of Onset ??? Depression Other ??? Heart Disease Other ??? Psoriasis Other ??? Thyroid Disease Other ??? High Blood Pressure Other Migraine in mother, maternal grandmother, father, paternal grand-mother, paternal aunt, 3 paternal uncles, maternal half sister, 3 daughters. Social History Socioeconomic History ??? Marital status: Spouse name: Not on file ??? Number of children: Not on file ??? Years of education: Not on file ??? Highest education level: Not on file Occupational History ??? Not on file Tobacco Use ??? Smoking status: Former Smoker Quit date: 01/13/2009 Years since quittin.1 ??? Smokeless tobacco: Never Used Substance and Sexual Activity ??? Alcohol use: Yes Alcohol/week: 0.0 standard drinks Comment: very rarely ??? Drug use: No ??? Sexual activity: Not on file Other Topics Concern ??? Not on file Social History Narrative ??? Not on file Social Determinants of Health Financial Resource Strain: ??? Difficulty of Paying Living Expenses: Food Insecurity: ??? Worried About Running Out of Food in the Last Year: ??? Ran Out of Food in the Last Year: Transportation Needs: ??? Lack of Transportation (Medical): ??? Lack of Transportation (Non-Medical): Physical Activity: ??? Days of Exercise per Week: ??? Minutes of Exercise per Session: Stress: ??? Feeling of Stress : Social Connections: ??? Frequency of Communication with Friends and Family: ??? Frequency of Social Gatherings with Friends and Family: ??? Attends Christianity Services: ??? Active Member of Clubs or Organizations: ??? Attends Club or Organization Meetings: ??? Marital Status: 7 cups of coffee / 1 cup tea per week. 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 Substance abuse (cocaine) 4965-9829. ROS: A complete 16 point review of systems was completed on the new patient self assessment form. This form has been reviewed with the patient and was negative except as noted above. PHQ-9 was 14; BERKLEY-7 was 9; HIT-6 was 68; MIDAS score was 90+; PCPTSD was 3/4. Menarche 10 years. (1991, 1993, 1997). S/p T/L 1992. S/p hysterectomy without oophorectomy 10/2016. BMI = 32 Imaging and Labs: No head CT or brain MRI available for review. Results for orders placed or performed in visit on 11/14/20 COVID-19 TESTING Specimen: Swab Result Value Ref Range COVID-19 rt-PCR Result Negative Negative Performing Lab [facility] Lab ASSESSMENT/PLAN: Chronic migraine with/without aura, medication overuse headache (opioids, acetaminophen, caffeine). Risk factors for chronic migraine include analgesics, obesity, disrupted daily schedule / sleep, affective disorders, family history. Taper oxycodone and caffeine, as tolerated, to reduce medication overuse headache. Increase sumatriptan from 3mg to 6mg PRN, for use up to 8 days per month, on days when mild headacheis progressing towards severe pain. Start Emgality. I urged her to attempt to video the involutary right arm movements should they recur to assist with diagnosis. Keep headache record. Return to clinic 4 months. Consider - Aimovig, Botox, Nurtec every other day, venlafaxine. 02/21/2021 9:10 Cc: Juma Herrera Cc: Gonzalo documented in this encounter Plan of Treatment Upcoming Encounters Date Type Specialty Care Team Description 06/25/2022 Telemedicine Neurology Kj Gloria MD PhD 1 [facility], [address] [place], [place] [phone] (Wo rk) 09/06/2022 Procedure visit Pain Medicine Catalino Garrett M D [address] [facility] [address] [place] [address] (Wo rk) 09/21/2022 Office Visit Bariatrics Jay, Allen Trinh, ELISABETH [address] [facility], [facility], [address] [place], [place] [address] (Wo rk) Scheduled Referrals Name Type Priority Associated Order Schedule Diagnoses AMB MEDICATION PRIOR Outpatient Referral Routine Chronic migra ine Ordered: AUTHORIZATION without aura 02/21/2021 without status migrainosus, not intractable documented as of this encounter Visit Diagnoses Diagnosis Chronic migraine without aura without st atus migrainosus, not intractable - Primary Chronic migraine without aura, without m ention of intractable migraine without mention of status migrainosus documented in this encounter Discontinued Medications Medication Sig Discontinue Reason Start Date End Date SUMAtriptan succinate 3 Inject into the Alternate therapy 02/21/2021 mg/0.5 mL pen injector skin three times a week. documented as of this encounter Historical Medications This list may reflect changes made after this encounter. Medication Sig Dispensed Refills Start Date End Date cholecalciferol, Vitamin Take 4,000 Units by 0 D3, 25 mcg (1,000 unit) mouth daily. tablet diphenhydrAMINE-acetamin Take 1 Tablet by 0 05/17/2022 ophen 25-500 mg tablet mouth at bedtime as needed. potassium chloride Take 20 mEq by mouth 0 05/17/2022 (KLOR-CON) 20 mEq packet daily. added in this encounter Care Teams Meal Miller Relationship Specialty Start Date End Date Juma Herrera MD PCP - General 01/07/19 03/13/21 Juma Herrera MD 12/08/18 [address] [place] [address] documented as of this encounter
--- OUTSIDE RECORDS SUMMARY | 2022-06-15 07:52 | XMS_ITS | Encounter Summary ---
:1975 Author Organization [facility] Address [address] [place] [address] Care Team Providers Name Role Phone Juma Herrera MD Unavailable Unavailable Shonda Sánchez NP Primary Care Provider Encounter Details Date Type Department Care Team Description 03/20/2021 Travel Social History Tobacco Use Types Packs/Day [...] Telemedicine Neurology Kj Gloria MD PhD 1 [facility] [address] [place], [place] [phone] (Wo rk) 09/06/2022 Procedure visit Pain Medicine Catalino Garrett M D [address] [facility] [address] [place] [address] (Wo rk) 09/21/2022 Office Visit Bariatrics Allen Thompson PA-C 111 [facility], [facility], [address] [place], [place] [address] (Wo rk) documented as of this encounter Visit Diagnoses Not on filedocumented in this encounter Care Teams Directional Survey Drafter Relationship Specialty Start Date End Date Shonda Sánchez, GIULIA PCP - General 03/14/21 01/31/[address] [place] [phone] Juma Herrera MD 12/08/18 [address] [place] [address] documented as of this encounter
--- OUTSIDE RECORDS SUMMARY | 2022-06-15 07:52 | XMS_ITS | Encounter Summary ---
:1975 Author Organization [facility] Address [address] [place] [address] Care Team Providers Name Role Phone Juma Herrera MD Unavailable Unavailable Juma Herrera MD Primary Care Provider Unavailable Encounter Details Date Type Department Care Team Description 12/19/2020 Travel Social History Tobacco Use Types Packs/Day [...] Neurology Kj Gloria MD PhD 1 [facility], [address] [place], [place] [phone] (Wo rk) 09/06/2022 Procedure visit Pain Medicine Catalino Garrett M D 62 [facility] [address] [place] [address] (Wo rk) 09/21/2022 Office Visit Bariatrics Allen Thompson, PALizettC 111 [facility], [facility], [address] [place], [place] [address] (Wo rk) documented as of this encounter Visit Diagnoses Not on filedocumented in this encounter Care Teams Advocacy Director Relationship Specialty Start Date End Date Juma Herrera MD PCP - General 01/07/19 03/13/21 Juma Herrera MD 12/08/18 [address] [place] [address] documented as of this encounter
--- OUTSIDE RECORDS SUMMARY | 2022-06-15 07:52 | XMS_ITS | Encounter Summary ---
:1975 Author Organization [facility] Address [address] [place] [address] Care Team Providers Name Role Phone Juma Herrera MD Unavailable Unavailable Juma Herrera MD Primary Care Provider Unavailable Encounter Details Date Type Department Care Team Description 11/17/2020 Hospital Encounter [facility] X ray [address] [place], [place] [phone] Social History Tobacco Use Types Packs/Day Years [...] Sig Dispensed Refills Start Date End Date calcium carbonate/vitamin D3 Take by mouth. 0 (VITAMIN D-3 ORAL) cortisone acetate (CORTISONE Inject 1 Dose 0 [...] Neurology Kj Gloria MD PhD [address] [facility], [address] [place], [place] [address] (Wo rk) 09/06/2022 Procedure visit Pain Medicine Catalino Garrett M D 62 [facility] [address] [place] [address] (Wo rk) 09/21/2022 Office Visit Bariatrics Allen Thompson PA-C 111 [facility], [facility], [address] [place], [place] [address] (Wo rk) documented as of this encounter Procedures Procedure Name Priority Date/Time Associated Diagnosis Comme nts PAIN CLINIC [place] Routine 11/17/2020 9:37 EDT Result s for this CERVICAL INJECTION procedure are in the results section. documented in this encounter Results PAIN CLINIC [place] CERVICAL INJECTION (11/17/2020 9:37 EDT) Specimen Narrative 11/17/2020 9:38 EDT This is a non-reportable exam. documented in this encounter Visit Diagnoses Not on filedocumented in this encounter Care Teams Occupational Health Coordinator Relationship Specialty Start Date End Date Juma Herrera MD PCP - General 01/07/19 03/13/21 Juma Herrera MD 12/08/18 [address] [place] [address] documented as of this encounter
--- OUTSIDE RECORDS SUMMARY | 2022-06-15 07:52 | XMS_ITS | Encounter Summary ---
:1975 Author Organization [facility] Address [address] [place] [address] Care Team Providers Name Role Phone Juma Herrera MD Unavailable Unavailable Shonda Sánchez NP Primary Care Provider Reason for Visit Reason Onset Date Comments Appointment Related 03/15/2021 Encounter Details Date Type Department Care Team Description 03/15/2021 Telephone [facility] - Catalino Garrett MD Appointment Related [address] Interventional Pain [address] [place] [address] [place], [place] 05 [facility] [phone] Social History Tobacco Use Types Packs/Day Years [...] Telephone Encounter - Shantelle Gautam RN - 03/16/2021 1142 EDT Injection History: 01/12/2021: sacroiliac joint injection bilateral [...] to 2013 L5-S1 decompression and fusion (2006) Date and type of procedure: 11/17/20: C6C7 YSABEL Provider: Dr Garrett Hours of relief: 2 months % of relief: 70% Next appointment: 11/17/2020: Plan per Dr Garrett-repeat as needed RN spoke with the pt and obtained pain relief numbers as above. Current pain score is an 8/10. Pt did participate in physical therapy in the past but it was not beneficial. Performs home exercises suchas stretching and walking daily for 15-20 minutes. Forwarded to prior auth. elephone Encounter - Molly Crawford - 03/15/2021 1611 EDT Please obtain 3 month results from last C6-7 cervical epidural under fluoroscopydone on 11/17/2020, current pain score, and ongoing conservative therapy. documented in this encounter Plan of Treatment Upcoming Encounters Date Type Specialty Care Team Description 06/25/2022 Telemedicine Neurology Kj Gloria MD PhD 1 [facility], [address] [place], [place] [phone] (Wo rk) 09/06/2022 Procedure visit Pain Medicine Catalino Garrett M D 62 [facility] [address] [place] [address] (Wo rk) 09/21/2022 Office Visit Bariatrics Allen Thompson, ZHOUC 111 [facility], [facility], [address] [place], [place] [phone] (Wo rk) documented as of this encounter Visit Diagnoses Not on filedocumented in this encounter Care Teams Groover And Striper Operator Relationship Specialty Start Date End Date Shonda Sánchez NP PCP - General 03/14/21 01/31/[address] [place] [phone] Juma Herrera MD 12/08/18 [address] [place] [address] documented as of this encounter
--- OUTSIDE RECORDS SUMMARY | 2022-06-15 07:52 | XMS_ITS | Encounter Summary ---
:[address] [facility] Address [address] [place] [address] Care Team Providers Name Role Phone Juma Herrera MD Unavailable Unavailable Juma Herrera MD Primary Care Provider Unavailable Reason for Visit Reason Comments Obesity post op sleeve 4 years 6 Encounter Details Date Type Department Care Team Description 09/18/2019 Office Visit [facility] [place], Morbid obesity ([facility]) (Primary Dx); Bariatric Surgery - ZHOU Luque S/P laparoscopic sleeve gastrectomy; [address] BMI 30.0-30.9,adult; [address] [facility] Postsurgical malabsorption [address] [phone] [facility] 5 [place] [address] (Wo rk) Social History Tobacco [...] - Inhaled Oxygen Concentration - - Weight 91.4 kg (201 lb 6.4 oz) 09/18/2019 1112 EST Height 172.7 cm (5' 7.99) 09/18/2019 1112 EST Body Mass Index 30.63 09/18/2019 1112 EST documented in this encounter Functional Status [...] documented as of this encounter Progress Notes Sena Astorga RD - 09/18/2019 1045 EST Nutrition Post Op Visit: Gastric Sleeve Subjective: Patient returns to clinic for post op nutritional counseling following bariatric surgery4 years ago. Questionnaire Reviewed: Yes Intolerance Episodes: no Food Intolerances: none Current Exercise: minimal planned exercise at this time. Objective: Current Weight: Wt Readings from Last 1 Encounters: 09/18/19 91.4 kg (201 lb 6.4 oz) Current BMI: Body mass index is 30.63 kg/m??.. Total Weight Loss: Total Loss in lbs (Weight from Initial Consult - Today's Weight): (!) 124.2 lbs Weight Change since Last Visit: +2 lbs and lost 77.4 lbs since surgery. Supplement Usage: Type Amount MVT Not taking Other: Ativan Recent Labs: no recent labs. Labs ordered for today. Assessment: Adequate Meal Frequency: Yes Adequate Meal Composition: No: inadequate protein Exercise Adequacy: No Nutritional Issues: Tia states that she is now back on track with her nutrition. She had gotten off track during the Holidays and found herself eating candy and chips often. She has been trying to eat 3 meals per day and 1-2 snacks. She does not always get a protein at her meals. Advised to track intake and aim for 80g protein daily. Also advised to get back to taking a MVM. Advised to take a Bariatric MVM w/ Fe as well as Ca/Vit D x 2. Plan: Change intake(Aim for 80g protein, eat 3 well-balanced meals daily) Increase exercise as able Supplement Changes (Add Bariatric MVM w/ Fe, add Ca/Vit D x 2) Continue food logs Education Provided: Weight Control: -1-2 lbs per week. Other: Follow-up in 1 year. LYChkathia- Radha, MARGARITA Luque - 09/18/2019 1045 EST 09/22/2019 Tia Arellano Grabiel is here in follow-up to her laparoscopic sleeve gastrectomy. The weight trend for thepatient is: Weight at initial consult: 147.7 kg (325 lb 9.6 oz), to 90.4 kg (199 lb 6.4 oz) [] at the last post-op visit to today's Weight : 91.4 kg (201 lb 6.4 oz). PROBLEM LIST Patient Active Problem List Diagnosis ??? Lumbar radiculopathy ??? Os trigonum syndrome ??? Tarsal tunnel syndrome of right side ??? Idiopathic peripheral neuropathy ??? Cervicalgia ??? Morbid obesity with BMI of 45.0-49.9, adult ([facility]) SUBJECTIVE: Emesis: No complaints of emesis Nausea: No complaints of nausea Increased Volume Tolerance: no Abdominal Pain: No complaints of abdominal pain Lightheadedness: No complaints of lightheadedness Bowel Function: Normal Pannus: No problems related to pannus reported OBJECTIVE: General Appearance: healthy appearing, alert and in no apparent distress Abdomen: Incisions well-healed Extremities: Normal Skin: Excess abdominal skin, no rashes ASSESSMENT: Doing well, Expected course without obvious complications and Weight Loss: Good, stable. Rare use ofPPI for GERD PLAN: 1. Return to clinic in 1 year(s). 2. Orders Placed This Encounter Procedures ??? Vitamin B12 Standing Status: Future Number of Occurrences: 1 Standing Expiration Date: 09/18/2020 ??? Calcium Standing Status: Future Number of Occurrences: 1 Standing Expiration Date: 09/18/2020 ??? Complete Blood Count Standing Status: Future Number of Occurrences: 1 Standing Expiration Date: 09/18/2020 ??? Ferritin Standing Status: Future Number of Occurrences: 1 Standing Expiration Date: 09/18/2020 ??? Iron Standing Status: Future Number of Occurrences: 1 Standing Expiration Date: 09/18/2020 ??? PTH Intact Standing Status: Future Number of Occurrences: 1 Standing Expiration Date: 09/18/2020 ??? THIAMIN (VITAMIN B1), WB Patient should be fasting. Non-fasting states can increase thiamin levels. Protect from light. Freeze specimen immediately. Send 3 mL whole blood frozen in nel vial. Standing Status: Future Number of Occurrences: 1 Standing Expiration Date: 09/18/2020 Scheduling Instructions: Blood Tests and Fasting ? - If a fasting blood test is ordered, you should not have anything to eat or drink (water,tea with nothing added, and black coffee without sugar are acceptable) for at least eight hours. This usually involves an overnight fast. ?- You should continue to take any prescription medications, unless your physician directed you not to take them. ? - Refrain from strenuous exercise (running/biking several miles) during this time, as those activities may affect your results. ?? If you have any concerns about refraining from food for this period of time, talk to your physician. Order Specific Question: The lab recommends a fasting sample. Should phlebotomy collect the sample if the patient is NOT fasting? Answer: Yes ??? Vitamin D (25,OH) Standing Status: Future Number of Occurrences: 1 Standing Expiration Date: 09/18/2020 3. Labs today. Seen and discussed with Bit Bender at this visit. MARGARITA Gomez 09/22/2019 10:32 documented in this encounter Plan of Treatment Upcoming Encounters Date Type Specialty Care Team Description 06/25/2022 Telemedicine Neurology Kj Gloria MD PhD 1 [facility], [facility] 2 [place], [place] [phone] (Wo rk) 09/06/2022 Procedure visit Pain Medicine Catalino Garrett M D [address] [facility] [address] [place] [address] (Jayjay rk) 09/21/2022 Office Visit Bariatrics Allen Thompson PA-C [facility], [facility], Level [address] [place], [place] [address] (Jayjay rk) documented as of this encounter Results (ABNORMAL) VITAMIN D (25,OH) (09/18/2019 12:34 EST) 25OH Vitamin D 18.6 (L) 30.0 - 100.0 [facility] Comment: ng/mL [facility] Vitamin D 25,OH Interpretive Ranges: Deficiency: ??<10.0 ng/mL Insufficiency: ??10.0 - 30.0 ng/mL Sufficiency: ??30.0 - 100.0 ng/mL Toxicity: ??>100.0 ng/mL Specimen Blood - Venous blood (substance) Performing Organization Address City/State/ZIP Code Phon e Number [facility] [address] [place] [address] SERVICES THIAMIN (VITAMIN B1), WB (09/18/2019 12:34 EST) Thiamin (Vitamin 129 70 - 180 [facility] B1), WB Comment: nmol/L LABORATORIES ADDITIONAL INFORMATION ------ This test was developed and its performance characteri stics determined by [facility] in a manner consistent with CLIA requirements. This test has not been cleared or approv ed by the U.S. Food and Drug Administration. Test Performed by: [facility] [address] [place] [address] Batch Trucker: Andrea López M.D. Ph.D.; CLIA# [id number] Specimen Blood - Venous blood (substance) Performing Organization Address City/[facility]/ZIP Code Phon e Number [facility] [address] [place] [address] PTH INTACT (09/18/2019 12:34 EST) Pathologist Sig nature Intact PTH 66 19 - 88 pg/mL [facility] RY SERVICES Specimen Blood - Venous blood (substance) Performing Organization Address City/[facility]/ZIP Code Phon e Number [facility] [address] [place] [address] SERVICES IRON (09/18/2019 12:34 EST) Pathologist Sig nature Iron 111 37 - 170 ug/dL [facility] ORY SERVICES Specimen Blood - Venous blood (substance) Performing Organization Address [facility]/ZIP Code Phon e Number [facility] [address] [place] [address] SERVICES FERRITIN (09/18/2019 12:34 EST) Pathologist Sig nature Ferritin 32 10 - 291 ng/mL [facility] OR[facility] SERVICES Specimen Blood - Venous blood (substance) Performing Organization Address [facility]/ZIP Code Phon e Number [facility] [address] [place] [address] SERVICES COMPLETE BLOOD COUNT (09/18/2019 12:34 EST) Pathologist Sig nature WBC 5.51 4.00 - 12.40 K/cmm [facility] RBC 4.80 3.86 - 5.04 M/cmm [facility] Hemoglobin 14.2 11.6 - 15.2 gm/dL [facility] HCT 42.5 34.9 - 44.4 % [facility] MCV 89 81 - 98 fl [facility] MCH 29.6 26.7 - 33.3 pg [facility] MCHC 33.4 32.1 - 35.9 gm/dL [facility] RDW-CV 13.1 <14.7 % [facility] RDW-SD 42.1 <50.4 fl [facility] PLT 263 141 - 377 K/cmm [facility] MPV 10.0 9.5 - 12.7 fl [facility] Specimen Blood - Venous blood (substance) Performing Organization Address City/[facility]/ZIP Code Phon e Number [facility] [address] [place] [address] SERVICES CALCIUM (09/18/2019 12:34 EST) Pathologist Sig nature Calcium 9.6 8.5 - 10.5 mg/dL [facility] Calculated Calcium 9.5 8.5 - 10.5 mg/dL [facility] Specimen Blood - Venous blood (substance) Performing Organization Address City/[facility]/ZIP Code Phon e Number [facility] [address] [place] [address] SERVICES VITAMIN B12 (09/18/2019 12:34 EST) Pathologist Sig nature Vitamin B12 400 211 - 911 pg/mL [facility] Specimen Blood - Venous blood (substance) Performing Organization Address [facility]/ZIP [facility] Phon e Number [facility] [address] [place] [address] SERVICES documented in this encounter Visit Diagnoses Diagnosis Morbid obesity ([facility] ([facility]) - Primary Morbid obesity S/P laparoscopic sleeve gastrectomy Bariatric surgery status BMI 30.0-30.9,adult Body Mass Index 30.0-30.9, adult Postsurgical malabsorption Other and unspecified postsurgical nonab sorption documented in this encounter Care Teams Advanced Manufacturing Engineer Relationship Specialty Start Date End Date Juma Herrera MD PCP - General 01/07/19 03/13/21 Juma Herrera MD 12/08/18 [address] [place] [address] documented as of this encounter
--- OUTSIDE RECORDS SUMMARY | 2022-06-15 07:52 | XMS_ITS | Encounter Summary ---
:1975 Author Organization [facility] Address [address] [place] [address] Care Team Providers Name Role Phone Juma Herrera MD Unavailable Unavailable Juma Herrera MD Primary Care Provider Unavailable Shonda Sánchez NP Primary Care Provider Reason for Visit Reason Onset Date Comments Appointment Related 06/13/2020 Encounter Details Date Type Department Care Team Description 06/13/2020 Telephone [facility] - Catalino Garrett MD Appointment Related [address] Interventional Pain [address] [address] [place], [place] [address] [phone] Social History Tobacco Use Types Packs/Day Years [...] this encounter Miscellaneous Notes Telephone Encounter - Ermelinda Fisher - 06/13/2020 1309 EDT Patient called to see if they could schedule their appointment as they were postponed due to COVID-19. Patient is scheduled for 11/[address] Garrett. COVID-19 process/screening and safetyprotocols as well medications to stop and NPO status have been confirmed by the patient. documented in this encounter Plan of Treatment Upcoming Encounters Date Type Specialty Care Team Description 06/25/2022 Telemedicine Neurology Kj Gloria MD PhD 1 [facility] 2 [place], [place] [address] (Wo héctor) 09/06/2022 Procedure visit Pain Medicine Catalino Garrett M D [address] [facility] [address] [place] [address] (Wo rk) 09/21/2022 Office Visit Bariatrics Allen Thompson PA-C 111 [facility], [facility], Level [address] [place], [place] [address] (Wo héctor) documented as of this encounter Visit Diagnoses Not on filedocumented in this encounter Care Teams Building Construction Contractor Relationship Specialty Start Date End Date Juma Herrera MD PCP - General 01/07/19 03/13/21 Shonda Sánchez NP PCP - General 03/14/21 01/31/[address] [place] [phone] Juma Herrera MD 12/08/[address] [place] [address] documented as of this encounter
--- OUTSIDE RECORDS SUMMARY | 2022-06-15 07:52 | XMS_ITS | Encounter Summary ---
:1975 Author Organization [facility] Address [address] [place] [address] Care Team Providers Name Role Phone Juma Herrera MD Unavailable Unavailable Juma Herrera MD Primary Care Provider Unavailable Encounter Details Date Type Department Care Team Description 11/06/2019 - Hospital Encounter [facility] Pain Clinic X ray 11/07/2019 [address] [place], [place] [phone] Social History Tobacco Use Types Packs/Day Years [...] Kj Gloria MD PhD 1 [facility], Level [address] [place], [place] [address] (Wo rk) 09/06/2022 Procedure visit Pain Medicine Catalino Garrett M D [address] [facility] [address] [place] [address] (Wo rk) 09/21/2022 Office Visit Bariatrics Allen Thompson PA-C [address] [facility], [facility], Level [address] [place], [place] [address] (Wo rk) documented as of this encounter Procedures Procedure Name Priority Date/Time Associated Comments Diagnosis PAIN CLINIC [place] Routine 11/06/2019 10:25 Results f or this SACROILIAC JOINT EST procedure a re in INJECTION the results section. documented in this encounter Results PAIN CLINIC [place] SACROILIAC JOINT INJECTION (11/06/2019 10:25 EST) Specimen Narrative 11/06/2019 10:25 EST This is a non-reportable exam. documented in this encounter Visit Diagnoses Not on filedocumented in this encounter Care Teams Cytology Teacher Relationship Specialty Start Date End Date Juam Herrera MD PCP - General 01/07/19 03/13/21 Juma Herrera MD 12/08/[address] [place] [address] documented as of this encounter
--- OUTSIDE RECORDS SUMMARY | 2022-06-15 07:52 | XMS_ITS | Encounter Summary ---
:1975 Author Organization [facility] Address [address] [place] [address] Care Team Providers Name Role Phone Juma Herrera MD Unavailable Unavailable Juma Herrera MD Primary Care Provider Unavailable Reason for Visit Reason Onset Date Comments Prior Auth, Medication 02/28/2021 Aimovig 70mg/mL ( Q 28 days) Encounter Details Date Type Department Care Team Description 02/28/2021 Telephone [facility] Kj Gloria Pri or Auth, Medication Neurology - S Lorna bergeron MD PhD (Aimovig 70mg/mL (Q [address] 1 [facility] days)) [address] [phone] [facility] Level [address] [place] [address] (Wo rk) Social History Tobacco [...] Date erenumab-aooe (AIMOVIG Inject 70 mg into 3 Syringe 3 202012/20/2021 AUTOINJECTOR) 70 mg/mL the skin every 28 auto-injector days. documented in this encounter Miscellaneous Notes Telephone Encounter - Hortencia Rehman - 03/06/2021 1112 EDT Prior Authorization Approval Medication: Aimovig Approved: 12/06/2020 to 06/04/2021 Authorization Number: N/A Benefits Information: CRK Part D Required Pharmacy: [facility] Preferred Pharmacy: [facility] Prior Authorization Submission Process Medication: Aimovig Insurance: CRK Part D Date PA Request Received: 03/06/2021 PA Submission Date: 03/06/2021 [facility] Srivastava: [id number] Submitted by: Hortencia Phone: [phone] Telephone Encounter - Hortencia Rehman - 02/28/2021 1625 EDT Prior Authorization Denial Medication: Emgality Denial Date: 03/06/2021 Denial Reason: Must have a trial/failure or contraindication to the plan's preferred therapy (Aimiovig). Prior Authorization Submission Process Medication: Emgality (Load & Maint) Insurance: CRK Part D Date PA Request Received: 02/21/2021 PA Submission Date: 03/06/2021 [facility] Srivastava: [id number] Submitted by: Hortencia Phone: [phone] documented in this encounter Plan of Treatment Upcoming Encounters Date Type Specialty Care Team Description 06/25/2022 Telemedicine Neurology Kj Gloria MD PhD 1 [facility], Level [address] [place], [place] [address] (Wo rk) 09/06/2022 Procedure visit Pain Medicine Catalino Garrett M D [address] [facility] [address] [place] [address] (Wo rk) 09/21/2022 Office Visit Bariatrics Allen Thompson, PALizettC 111 [facility], [facility], Level [address] [place], [place] [address] (Wo rk) documented as of this encounter Visit Diagnoses Not on filedocumented in this encounter Care Teams Brewery Worker Relationship Specialty Start Date End Date Juma Herrera MD PCP - General 01/07/19 03/13/21 Juma Herrera MD 12/08/18 [address] [place] [address] documented as of this encounter
--- OUTSIDE RECORDS SUMMARY | 2022-06-15 07:52 | XMS_ITS | Encounter Summary ---
:1975 Author Organization [facility] Address [address] [place] [address] Care Team Providers Name Role Phone Juma Herrera MD Unavailable Unavailable Juma Herrera MD Primary Care Provider Unavailable Reason for Visit Reason Comments Pain Neck Pain Shoulder Pain Back Pain Encounter Details Date Type Department Care Team Description 11/06/2019 Procedure visit [facility] - Catalino Garrett Sa croiliitis ([facility]) (Primary Dx); [facility] DDD (degenerative disc disease), [facility] [address] [facility] Interventional Pain [address] 62 [facility] [place], [place] [address] [place], [place] [phone] [address] Social History Tobacco Use Types Packs/Day [...] Sign Reading Time Taken Comments Blood Pressure 131/78 11/06/2019 1023 EST Pulse 67 11/06/2019 1023 EST Temperature 36.3 ??C (97.3 ??F) 11/06/2019 0945 EST Respiratory Rate - - Oxygen Saturation [...] as of this encounter Patient Instructions Patient InstructionsCoShantelle riggins RN - 11/06/2019 10:00 EST [facility] [address] [address] Patient Instructions You have had [...] RN documented in this encounter Progress Notes Shantelle Piedra RN - 11/06/2019 1000 EST ATTENTION: This Checklist should be reviewed with the patient, provider, nurse/MA, and opthalmic tech in the room prior to local anesthetic [...] scheduled procedure. 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 Also returning is her right neck and shoulder pain which was treated very well with a cervical epidural (see below). These symptoms are described in notes from [facility] and are returning in the same distribution and quality as previously. The patient reports no recent changes in the character, quality, or distribution of the pain. There are no recent onset of new associated symptoms such as changes in strength, sensation, or bladder control. All previous medical records including current medications, anticoagulation status, any signs of current infection, andnew imaging were reviewed. Injection History: 11/06/2019: sacroiliac joint injection bilateral 07/27/19: b/l SI Joint inj - 90% improvement in LBP x 3 months 01/28/19: C6C7 CUAUHTEMOC - 80% for 9 months 09/15/18: C6C7 CUAUHTEMOC - 80% relief for 3 months Allergies: Allergies Allergen Reactions ??? Adhesive Other [...] capsule Take 2 Caps by mouth daily (Patient not taking: Reported on 11/06/2019) 60 Cap 3 ??? oxyCODONE (ROXICODONE) 5 [...] Caps by mouth 3 times daily. (Patient not taking: Reported on 11/06/2019) 180 Cap 3 ??? prochlorperazine (COMPAZINE) 10 mg tablet Take 1 Tab by mouth every 6 hours as needed for Nausea(Patient not taking: Reported on 11/06/2019) 60 Tab 0 ??? rizatriptan (MAXALT) 10 [...] known recent infections. Physical Exam: Vitals: BP 129/72 Pulse 73 Temp 36.3 ??C (97.3 ??F) (Tympanic) General: Patient is alert and [...] bilateral, positive SUMIT test Assessment: 1. Sacroiliitis ([facility]CC-CMS) 2. DDD (degenerative disc disease), cervical Plan: Ms. Tia Rooney is a 44 y.o. female that presents to the pain clinic to undergo sacroiliac joint injection in regards to her chronic back pain. All risks, benefits, and alternatives were thoroughly explained to Ms. Tia Rooney who verbally communicated understanding of the management plan. Proceed with sacroiliac joint injection bilateral Followup: next available C6C7 CUAUHTEMOC. Procedure: The patient gave informed written consent [...] procedure pain report: Pain Score (from Vitals) 11/06/2019 11/06/2019 Initial score 6 - Final score - 6 Location - BACK Comment - - Gerry MEHTA Candida Virgen MA - 11/06/2019 1000 EST [facility] Rooming Note Does patient have a Supervisor Phosphorus Processing? yes Is patient NPO? (Solids since midnight [...] you have any type of implanted device? scs Other: documented in this encounter Plan of Treatment Upcoming Encounters Date Type Specialty Care Team Description 06/25/2022 Telemedicine Neurology Kj Gloria MD PhD 1 [facility] 2 [place], [place] [phone] (Wo rk) 09/06/2022 Procedure visit Pain Medicine Catalino Garrett M D [address] [facility] [address] [place] [address] (Wo rk) 09/21/2022 Office Visit Bariatrics Allen Thompson PA-C [address] [place] [address], [address] [place], [place] [address] (Wo rk) documented as of this encounter Visit Diagnoses Diagnosis Sacroiliitis (HCC) - Primary Sacroiliitis, not elsewhere classified DDD (degenerative disc disease), cervica l Degeneration of cervical intervertebral disc documented in this encounter Administered Medications Inactive Administered Medications - up to 3 most recent administrations Medication Order MAR Action Action Date Dose Rate Site bupivacaine (PF) (MARCAINE) 0.5% Given by Other 11/06/2019 10:18 EST 6 mL injection 6 mL 6 mL, intra-articular, NOW X1, 1 dose, On Sat11/06/19 at 1045, Routine methylPREDNISolone ACETATE Given by Other 11/06/2019 10:18 EST 80 mg (DEPO-MEDROL) injection 80 mg 80 mg, intra-articular, NOW X1, 1 dose, On Sat11/06/19 at 1045, Routine documented in this encounter Care Teams Buggy Ladle Tender Relationship Specialty Start Date End Date Juma Herrera MD PCP - General 01/07/19 03/13/21 Juma Herrera MD 12/08/[address] [place] [address] documented as of this encounter
--- OUTSIDE RECORDS SUMMARY | 2022-06-15 07:52 | XMS_ITS | Encounter Summary ---
:1975 Author Organization [facility] Address [address] [place] [address] Care Team Providers Name Role Phone Juma Herrera MD Unavailable Unavailable Juma Herrera MD Primary Care Provider Unavailable Encounter Details Date Type Department Care Team Description 01/12/2021 Hospital Encounter [facility] X ray [address] [place], [place] [id number] Social History Tobacco Use Types Packs/Day Years [...] tablet mouth 2 times daily. calcium carbonate/vitamin D3 Take by mouth. 0 [...] Kj Gloria MD PhD 1 [facility], Level 2 [place], [place] [address] (Wo rk) 09/06/2022 Procedure visit Pain Medicine Catalino Garrett M D [address] [facility] [address] [place] [address] (Wo rk) 09/21/2022 Office Visit Bariatrics Allen Thompson, ELISABETH 111 [facility], Level 5 [place], [place] [address] (Wo rk) documented as of this encounter Procedures Procedure Name Priority Date/Time Associated Comments Diagnosis PAIN CLINIC [place] Routine 01/12/2021 9:25 EDT Result s for this SACROILIAC JOINT procedure a re in INJECTION the results section. documented in this encounter Results PAIN CLINIC [place] SACROILIAC JOINT INJECTION (01/12/2021 9:25 EDT) Specimen Narrative 01/12/2021 9:25 EDT This is a non-reportable exam. documented in this encounter Visit Diagnoses Not on filedocumented in this encounter Care Teams Flamer Sealer Relationship Specialty Start Date End Date uJma Herrera MD PCP - General 01/07/19 03/13/21 Juma Herrera MD 12/08/18 [address] [place] [address] documented as of this encounter
--- OUTSIDE RECORDS SUMMARY | 2022-06-15 07:52 | XMS_ITS | Encounter Summary ---
:1975 Author Organization [facility] Address [address] [place] [address] Care Team Providers Name Role Phone Juma Herrera MD Unavailable Unavailable Juma Herrera MD Primary Care Provider Unavailable Reason for Visit Reason Onset Date Comments Immunizations 10/31/2020 Encounter Details Date Type Department Care Team Description 10/31/2020 Telephone [facility] - Catalino Garrett MD Immunizations [address] [facility] [address] [place] [phone] (Wo rk) Social History Tobacco Use Types [...] this encounter Miscellaneous Notes Telephone Encounter - Jenni Barajas MA - 10/31/2020 1517 EST Called patient to verify whether or not she have received any vaccinations in the past two weeks or plan on receiving any vaccinations in the next two weeks. Patient declines. documented in this encounter Plan of Treatment Upcoming Encounters Date Type Specialty Care Team Description 06/25/2022 Telemedicine Neurology Kj Gloria MD PhD 1 [facility] Level 2 [place], [place] [address] (Wo rk) 09/06/2022 Procedure visit Pain Medicine Catalino Garrett M D 62 [facility] [address] [place] [address] (Wo rk) 09/21/2022 Office Visit Bariatrics Allen Thompson PA-C 111 [facility], Level 5 [place], [place] [address] (Wo rk) documented as of this encounter Visit Diagnoses Not on filedocumented in this encounter Care Teams Chief Of Hospital Medicine Relationship Specialty Start Date End Date Juma Herrera MD PCP - General 01/07/19 03/13/21 Juma Herrera MD 12/08/18 [address] [place] [address] documented as of this encounter
--- OUTSIDE RECORDS SUMMARY | 2022-06-15 07:52 | XMS_ITS | Encounter Summary ---
:1975 Author Organization [facility] Address [address] [place] [address] Care Team Providers Name Role Phone Juma Herrera MD Unavailable Unavailable Juma Herrera MD Primary Care Provider Unavailable Encounter Details Date Type Department Care Team Description 11/17/2020 Travel Social History Tobacco Use Types Packs/Day [...] PhD 1 [facility], Level 2 [place], [place] [address] (Wo rk) 09/06/2022 Procedure visit Pain Medicine Catalino Garrett M D 62 [facility] [address] [place] [address] (Wo rk) 09/21/2022 Office Visit Bariatrics Allen Thompson, PALizettC 111 [facility], [facility], Level 5 [place], [place] [address] (Wo rk) documented as of this encounter Visit Diagnoses Not on filedocumented in this encounter Care Teams Bonbon Cream Warmer Relationship Specialty Start Date End Date Juma Herrera MD PCP - General 01/07/19 03/13/21 Juma Herrera MD 12/08/18 [address] [place] [address] documented as of this encounter
--- OUTSIDE RECORDS SUMMARY | 2022-06-15 07:52 | XMS_ITS | Encounter Summary ---
:1975 Author Organization [facility] Address [address] [place] [address] Care Team Providers Name Role Phone Juma Herrera MD Unavailable Unavailable Juma Herrera MD Primary Care Provider Unavailable Encounter Details Date Type Department Care Team Description 01/12/2021 Travel Social History Tobacco Use Types Packs/Day [...] Telemedicine Neurology Kj Gloria MD PhD 1 [facility], Level 2 [place], [place] [address] (Wo rk) 09/06/2022 Procedure visit Pain Medicine Catalino Garrett M D 62 [facility] [address] [place] [address] (Wo rk) 09/21/2022 Office Visit Bariatrics Allen Thompson, PALizettC 111 [facility], [facility], Level 5 [place], [place] [address] (Wo rk) documented as of this encounter Visit Diagnoses Not on filedocumented in this encounter Care Teams Chemical Etch Operator Relationship Specialty Start Date End Date Juma Herrera MD PCP - General 01/07/19 03/13/21 Juma Herrera MD 12/08/18 [address] [place] [address] documented as of this encounter
--- OUTSIDE RECORDS SUMMARY | 2022-06-15 07:52 | XMS_ITS | Encounter Summary ---
:1975 Author Organization [facility] Address [address] [place] [address] Care Team Providers Name Role Phone Juma Herrera MD Unavailable Unavailable Juma Herrera MD Primary Care Provider Unavailable Shonda Sánchez NP Primary Care Provider [facility] Primary Care Provider [phone] Encounter Details Date Type Department Care Team Description 11/14/2020 Lab Requisition [facility] Outr Resulting Lab, Pathology & Laboratory Provider [facility] [address] [place], [place] [address] Social History Tobacco Use Types Packs/Day Years [...] Kj Gloria MD PhD 1 [facility] 2 [place], [place] [address] (Wo rk) 09/06/2022 Procedure visit Pain Medicine Catalino Garrett M D 62 [facility] [address] [place] [address] (Wo rk) 09/21/2022 Office Visit Bariatrics Allen Thompson PA-C 111 [facility], [facility], Level 5 [place], [place] [address] (Wo rk) documented as of this encounter Procedures Procedure Name Priority Date/Time Associated Diagnosis Comme nts COVID-19 TEST [facility] Today 11/14/2020 10:36 LAB PCR EDT COVID-19 TESTING Routine 11/14/2020 10:36 Results for this EDT procedure are i n the results section. documented in this encounter Results COVID-19 TEST [facility] LAB PCR (11/14/2020 10:36 EDT) Specimen Swab - Entire nasopharynx (body structur e) Performing Organization Address City/State/ZIP Code Phon e Number [facility] [address] [place] [address] SERVICES COVID-19 TESTING (11/14/2020 10:36 EDT) COVID-19 rt-PCR Negative Negative [facility] MEDICAL Result Comment: CENTER LABORATORY This test [...] the authorization is terminated or revoked sooner. Negative results do not prec lude 2019-nCoV infection and should not be used as the sole basis for treatment or other patient management decisions. Negative results must be combined with clinical observa tions, patient history, and epidemiological informatio n. This test was developed and its performance characteristics determined by [facility]. It has not been cleared or approved [...] defined by the FDA Performed on the [employer] 7 Pro RT-PCR System. Performing Lab SHREYA [facility] Lab [facility] SERVICES Specimen Swab Performing Organization Address City/State/ZIP Code Phon e Number [facility] [address] [place] [address] SERVICES documented in this encounter Visit Diagnoses Not on filedocumented in this encounter Additional Health Concerns Infection Onset Date Last Indicated Resolved Time COVID-19 08/15/2021 08/15/2021 09/04/2021 22:15 EST documented as of this encounter Care Teams Television News Photographer Relationship Specialty Start Date End Date Juma Herrera MD PCP - General 01/07/19 03/13/21 Shonda Sánchez NP PCP - General 03/14/21 01/31/[address] [place] [address] [facility] PCP - General 02/01/22 [address] [place] [address] Juma Herrera MD 12/08/18 [address] [place] [address] documented as of this encounter
--- OUTSIDE RECORDS SUMMARY | 2022-06-15 07:52 | XMS_ITS | Encounter Summary ---
:1975 Author Organization [facility] Address [address] [place] [address] Care Team Providers Name Role Phone Juma Herrera MD Unavailable Unavailable Juma Herrera MD Primary Care Provider Unavailable Reason for Referral PT/OT/ST (Routine) - Specialty Report Received Specialty Diagnoses / Procedures Referred By Contact Refer red To Contact Diagnoses Low back pain, unspecified back pain laterality, unspecified chronicity, with sciatica presence unspecified Kj Child MD [address] [place] [address] Referral ID Status Reason Start Expiration Visits Visits Date Date Requested Authorized [id number] Specialty Specialty 04/03/2019 1 1 Report Services Received Required Question Answer Reason for Request: back pain Scheduling Comments (optional ? routine describe specific scheduling needs if applicable): Comments Aquatic therapy 3x a week Reason for Visit Reason Onset Date Comments Back Pain 04/03/2019 Encounter Details Date Type Department Care Team Description 04/03/2019 Orders Only [facility] Kj Child lanny k pain, Spine Program - Moises Kovacs MD unspecified back pain [address] [facility] laterality, So [facility], [place] [address] [place] [address] chronicity, with [phone] sciatica presen ce (Work) unspecified (Primary Dx) Social History Tobacco Use Types [...] Neurology Kj Gloria MD PhD 1 [facility] 2 [place], [place] [address] (Jayjay anaya) 09/06/2022 Procedure visit Pain Medicine Catalino Garrett M D [address] [place] [address] [address] [place] [address] (Wo rk) 09/21/2022 Office Visit Bariatrics Allen Thompson PA-C [address] [place] [address], [facility] [address] [place], [place] [address] (Wo héctor) Scheduled Referrals Name Type Priority Associated Diagnoses Order S chedule AMB CONS/FOLLOW UP Outpatient Referral Routine Low back pain, Ordered: PHYSICAL THERAPY unspecified back pain laterality, unspecified chronicity, with sciatica presence unspecified documented as of this encounter Visit Diagnoses Diagnosis Low back pain, unspecified back pain lat erality, unspecified chronicity, with sciatica presence unspecified - Primary documented in this encounter Care Teams Hole Puncher Strap Relationship Specialty Start Date End Date Juma Herrera MD PCP - General 01/07/19 03/13/21 Juma Herrera MD 12/08/18 [address] [place] [address] documented as of this encounter
--- OUTSIDE RECORDS SUMMARY | 2022-06-15 07:52 | XMS_ITS | Encounter Summary ---
:1975 Author Organization [facility] Address [address] [place] [address] Care Team Providers Name Role Phone Juma Herrera MD Unavailable Unavailable Juma Herrera MD Primary Care Provider Unavailable Reason for Referral Referral (3 - 10 Business Days) - Authorization Not Required Specialty Diagnoses / Procedures Referred By Contact Refer red To Contact Pain Medicine Diagnoses Back pain, unspecified back location, unspecified back pain laterality, unspecified chronicity Kj Child [facility] [address] [employer] [place] [phone] Referral ID Status Reason Start Expiration Visits Visits Date Date Requested Authorized [id number] Authorization Specialty 1 1 Not Required Services 9 Required Question Answer Reason for Request: Back Pain Has the patient had 6 weeks of conservative treatment such Yes as physicial therapy or NSAIDS? Associated Notes: See Epic What procedure would you like performed? Please specif y L3-L4, L4-L5 facet block laterality and levels. Please indicate if this is to be considered diagnostic . Therapeutic and Diagnostic Encounter Details Date Type Department Care Team Description 06/04/2019 Orders Only [facility] Kj Child pa in, unspecified Spine Program - Moises Kovacs MD back location, [address] unspecified back pain So [facility], [facility] ality, [address] [place] [phone] unspecified chronicity [phone] (Primary Dx) (Work) Social History Tobacco Use [...] Telemedicine Neurology Kj Gloria MD PhD 1 [facility] 2 [place], [place] [address] (Wo rk) 09/06/2022 Procedure visit Pain Medicine Catalino Garrett M D 62 [facility] [address] [place] [address] (Wo rk) 09/21/2022 Office Visit Bariatrics Allen Thompson PA-C [address] [facility], [facility], Level [address] [place], [place] [address] (Wo rk) Scheduled Referrals Name Type Priority Associated Diagnoses Order S chedule AMB PAIN PROCEDURE Outpatient Referral Routine Back pain, Or dered: unspecified back 06/04/2019 location, unspecified back pain laterality, unspecified chronicity documented as of this encounter Visit Diagnoses Diagnosis Back pain, unspecified back location, un specified back pain laterality, unspecified chronicity - Primary documented in this encounter Care Teams Olive Pitter Relationship Specialty Start Date End Date Juma Herrera MD PCP - General 01/07/19 03/13/21 Juma Herrera MD 12/08/18 [address] [place] [address] documented as of this encounter
--- OUTSIDE RECORDS SUMMARY | 2022-06-15 07:52 | XMS_ITS | Encounter Summary ---
:1975 Author Organization [facility] Address [address] [place] [address] Care Team Providers Name Role Phone Juma Herrera MD Unavailable Unavailable Juma Herrera MD Primary Care Provider Unavailable Encounter Details Date Type Department Care Team Description 09/18/2019 Phlebotomy Only [facility] JORDAN HIGUERA Diesel Inspector, Morbid o besity ([facility]); COVID TESTING [place] S/P laparoscopic sleeve sondra rectomy; [address] Phlebotomy BMI 30.0-30.9,adult; [place] [address] Postsurgical malabsorption [phone] Social History Tobacco Use Types Packs/Day Years [...] MD PhD 1 [facility], Level 2 [place], [place] [address] (Wo rk) 09/06/2022 Procedure visit Pain Medicine Catalino Garrett M D 62 [facility] [address] [place] [address] (Wo rk) 09/21/2022 Office Visit Bariatrics Allen Thompson PA-C 111 [facility], Level [address] [place], [place] [address] (Wo rk) documented as of this encounter Procedures Procedure Name Priority Date/Time Associated Diagnosis Comme nts THIAMIN (VITAMIN Routine 09/18/2019 12:34 Morbid obesity Resul ts for this B1), WB EST ([facility]) procedure are in S/P laparoscopic the results sleeve gastrecto my section. BMI 30.0-30.9,ad ult Postsurgical malabsorption VITAMIN D (25,OH) Routine 09/18/2019 12:34 Morbid obesity Resu lts for this EST ([facility]) procedure are in S/P laparoscopic the results sleeve gastrecto my section. BMI 30.0-30.9,ad ult Postsurgical malabsorption PTH INTACT Routine 09/18/2019 12:34 Morbid obesity Results f or this EST (HCC-CMS) procedure are in S/P laparoscopic the results sleeve gastrecto my section. BMI 30.0-30.9,ad ult Postsurgical malabsorption COMPLETE BLOOD Routine 09/18/2019 12:34 Morbid obesity Results for this COUNT EST (HCC-CMS) procedure are in S/P laparoscopic the results sleeve gastrecto my section. BMI 30.0-30.9,ad ult Postsurgical malabsorption IRON Routine 09/18/2019 12:34 Morbid obesity Results f or this EST (HCC-CMS) procedure are in S/P laparoscopic the results sleeve gastrecto my section. BMI 30.0-30.9,ad ult Postsurgical malabsorption FERRITIN Routine 09/18/2019 12:34 Morbid obesity Results f or this EST (HCC-CMS) procedure are in S/P laparoscopic the results sleeve gastrecto my section. BMI 30.0-30.9,ad ult Postsurgical malabsorption VITAMIN B12 Routine 09/18/2019 12:34 Morbid obesity Results f or this EST (HCC-CMS) procedure are in S/P laparoscopic the results sleeve gastrecto my section. BMI 30.0-30.9,ad ult Postsurgical malabsorption CALCIUM Routine 09/18/2019 12:34 Morbid obesity Results f or this EST (HCC-CMS) procedure are in S/P laparoscopic the results sleeve gastrecto my section. BMI 30.0-30.9,ad ult Postsurgical malabsorption documented in this encounter Results (ABNORMAL) VITAMIN D (25,OH) (09/18/2019 12:34 EST) 25OH Vitamin D 18.6 (L) 30.0 - 100.0 [facility] Comment: ng/mL [facility] Vitamin D 25,OH Interpretive Ranges: Deficiency: ??<10.0 ng/mL Insufficiency: ??10.0 - 30.0 ng/mL Sufficiency: ??30.0 - 100.0 ng/mL Toxicity: ??>100.0 ng/mL Specimen Blood - Venous blood (substance) Performing Organization Address City/State/ZIP Code Phon e Number [facility] [address] [place] [address] SERVICES THIAMIN (VITAMIN B1), WB (09/18/2019 12:34 EST) Thiamin (Vitamin 129 70 - [address] [facility] B1), WB Comment: nmol/L LABORATORIES ADDITIONAL INFORMATION ------ This test was developed and its performance characteri stics determined by [facility] in a manner consistent with CLIA requirements. This test has not been cleared or approv ed by the U.S. Food and Drug Administration. Test Performed by: [facility] [address] [place] [address] Tool Programmer: Andrea López M.D. Ph.D.; CLIA# [id number] Specimen Blood - Venous blood (substance) Performing Organization Address [facility]/ZIP [facility] Phon e Number [facility] [address] [place] [address] PTH INTACT (09/18/2019 12:34 EST) Pathologist Sig nature Intact PTH 66 19 - 88 pg/mL [facility] SERVICES Specimen Blood - Venous blood (substance) Performing Organization Address [facility] Phon e Number [facility] [address] [place] [address] SERVICES IRON (09/18/2019 12:34 EST) Pathologist Sig nature Iron 111 37 - 170 ug/dL [facility] SERVICES Specimen Blood - Venous blood (substance) Performing Organization Address [facility]/ZIP [facility] Phon e Number [facility] [address] [place] [address] SERVICES FERRITIN (09/18/2019 12:34 EST) Pathologist Sig nature Ferritin 32 10 - 291 ng/mL [facility] Specimen Blood - Venous blood (substance) Performing Organization Address [facility] Phon e Number [facility] [address] [place] [address] SERVICES COMPLETE BLOOD COUNT (09/18/2019 12:34 EST) Pathologist Sig nature WBC 5.51 4.00 - 12.40 K/cmm [facility] RBC 4.80 3.86 - 5.04 M/cmm [facility] Hemoglobin 14.2 11.6 - 15.2 gm/dL [facility] HCT 42.5 34.9 - 44.4 % [facility] MCV 89 81 - 98 fl [facility] MCH 29.6 26.7 - 33.3 pg [facility] MCHC 33.4 32.1 - 35.9 gm/dL [facility] RDW-CV 13.1 <14.7 % [facility] RDW-SD 42.1 <50.4 fl [facility] PLT 263 141 - 377 K/cmm [facility] MPV 10.0 9.5 - 12.7 fl [facility] Specimen Blood - Venous blood (substance) Performing Organization Address City/[facility]/ZIP Code Phon e Number [facility] [address] [place] [address] SERVICES CALCIUM (09/18/2019 12:34 EST) Pathologist Sig nature Calcium 9.6 8.5 - 10.5 mg/dL [facility] Calculated Calcium 9.5 8.5 - 10.5 mg/dL [facility] Specimen Blood - Venous blood (substance) Performing Organization Address [facility]/ZIP Code Phon e Number [facility] [address] [place] [address] SERVICES VITAMIN B12 (09/18/2019 12:34 EST) Pathologist Sig nature Vitamin B12 400 211 - 911 pg/mL [facility] Specimen Blood - Venous blood (substance) Performing Organization Address [facility]/ZIP [facility] Phon e Number [facility] [address] [place] [address] SERVICES documented in this encounter Visit Diagnoses Diagnosis Morbid obesity ([facility]) (HCC) Morbid obesity S/P laparoscopic sleeve gastrectomy Bariatric surgery status BMI 30.0-30.9,adult Body Mass Index 30.0-30.9, adult Postsurgical malabsorption Other and unspecified postsurgical nonab sorption documented in this encounter Care Teams Patient Safety Tech Relationship Specialty Start Date End Date Juma Herrera MD PCP - General 01/07/19 03/13/21 Juma Herrera MD 12/08/18 [address] [place] [address] documented as of this encounter
--- OUTSIDE RECORDS SUMMARY | 2022-06-15 07:52 | XMS_ITS | Encounter Summary ---
:1975 Author Organization [facility] Address [address] [place] [address] Care Team Providers Name Role Phone Juma Herrera MD Unavailable Unavailable Shonda Sánchez NP Primary Care Provider Reason for Visit Reason Comments Neck Pain Headache Back Pain Office Procedure (Routine) - Specialty Report Received Specialty Diagnoses / Procedures Referred By Contact Refer red To Contact Pain Medicine Diagnoses Other cervical disc degeneration, unspecified cervical region Sacroiliitis, not elsewhere classified ([facility]) c6 c7 see [facility] Catalino Garrett MD Procedures MN NJX DX/THER SBST INTRLMNR CRV/THRC W/IMG GDN PROCEDURE MEDIUM [address] [place] [address] [address] [place] [address] Phone: Fax: Referral ID Status Reason Start Date Expiration Date Visits V isits Requested Authorized [id number] Specialty 1 1 Report Received Encounter Details Date Type Department Care Team Description 04/05/2021 Procedure visit [facility] - Catalino Garrett DD D (degenerative disc disease), cervical (Primary Dx); [facility] Sacroiliitis ([facility]); Medical Center [address] [place] [address] Chronic pain of right knee Interventional Pain [address] [place], [place] [address] [place], [place] [phone] Social History Tobacco Use Types Packs/Day [...] Sign Reading Time Taken Comments Blood Pressure 129/77 04/05/2021 1105 EDT Pulse 72 04/05/2021 1105 EDT Temperature 35.4 ??C (95.7 ??F) 04/05/2021 1004 EDT Respiratory Rate 20 04/05/2021 1105 EDT Oxygen Saturation 99% 04/05/2021 1004 EDT Inhaled Oxygen Concentration - - Weight [...] Patient Instructions Patient InstructionsKaila Lovell RN - 04/05/2021 10:15 EDT [facility] [address] [address] Patient Instructions You have had [...] immediately. ??? If you develop increasingly severe neck/back pain, continued numbness or weakness of the arms orchanges in your bladder or bowel functions, please [...] None Outcomes: independent and verbalized understanding Holly W. RN documented in this encounter Progress Notes Kaila Lovell RN - 04/05/2021 1015 EDT ATTENTION: This Checklist should be reviewed with the patient, provider, nurse/MA, and nanotechnology engineering technologist in the room prior to local anesthetic [...] scheduled procedure. olf, Catalino Brown MD - 04/05/2021 1015 EDT Patient Name: Tia Rooney : 1975 Date of Service: 04/05/2021 Catalyst Operator: Gerry MEHTA Contract Programmer: none Procedure: Therapeutic cervical epidural steroid injections [...] and new imaging were reviewed. Injection History: 04/05/2021: cervical epidural steroid injection at C6C7 03/20/2021: intra-articularR knee joint injection w monovisc - helpful with walking up stairs and improving mobility 01/12/2021: sacroiliac joint injection bilateral - not sure if it offered any improvement 12/19/20: f/u discuss R knee pain 11/17/20: C6C7 YSABEL - 80% improvement for 2 months 11/06/19: b/l SIJ inj 90% improvement in LBP x3 months 07/27/19: b/l SI Joint inj - 90% improvement in LBP x 3 months 01/28/19: ??C6C7 SEE - 80% for 9 months 09/15/18: C6C7 SEE - 80% relief for 3 months?hx of [...] known recent infections. Physical Exam: Vitals: BP 128/70 Pulse 75 Temp (!) 35.4 ??C (95.7 ??F) (Temporal) Resp 16 SpO2 99% General: Patient is [...] bilaterally equal to light touch, Assessment: 1. DDD (degenerative disc disease), cervical 2. Sacroiliitis (HCC-CMS) 3. Chronic pain of right knee Plan: Ms. Tia Rooney is a 45 y.o. female that presents to the pain clinic to undergo cervical epiduralsteroid injections in regards to her chronic neck pain. All risks, benefits, and alternatives were thoroughly explained to Ms. Tia Rooney who verbally communicated understanding of the management plan. Proceed with therapeutic YSABEL C6C& Follow up: has appointment in May 2021 for b/l SI joint injection. After that I'm going to see her in follow up, review areas we have worked on and see which procedures have been helpful PROCEDURE: The patient gave informed written consent [...] the patient prior to discharge. Gerry MEHTA STOTTBrianna dyer MA - 04/05/2021 1015 EDT [facility] Rooming Note Does patient have a [employer]? yes Is patient NPO? (Solids since midnight & liquids for 4 hrs) Yes, last ate at 8:30pm Blood Thinners: Is patient on Blood Thinners? yes If yes, taking? no If stopped, who authorized stopping? Related comments: Infections: Any recent infections, fever of illnesses? no If on antibiotics, is it 7-10 days past the date of completion of antibiotics? no : (for females of child-bearing age) Is there a chance current ? Do you have any type of implanted device? Spinal fusion stimulator Vaccination: Have you had or are you planning to have a vaccination in the 2 weeks? No Other: documented in this encounter Plan of Treatment Upcoming Encounters Date Type Specialty Care Team Description 06/25/2022 Telemedicine Neurology Kj Gloria MD PhD 1 [facility] [address] [place], [place] [phone] (Wo rk) 09/06/2022 Procedure visit Pain Medicine Catalino Grarett M D 62 [facility] [address] [place] [address] (Wo rk) 09/21/2022 Office Visit Bariatrics Allen Thompson PA-C [address] [place] [address], [address] [place], [place] [address] (Wo rk) documented as of this encounter Visit Diagnoses Diagnosis DDD (degenerative disc disease), cervica l - Primary Degeneration of cervical intervertebral disc Sacroiliitis (HCC) Sacroiliitis, not elsewhere classified Chronic pain of right knee documented in this encounter Administered Medications Inactive Administered Medications - up to 3 most recent administrations Medication Order MAR Action Action Date Dose Rate Site Iohexol (OMNIPAQUE 180) injection Given by Other 04/05/2021 10:57 EDT 3 mL 10 mL 10 mL, neural-axial, NOW X1, 1 dose, On Sat04/05/21 at 1115, Routine methylPREDNISolone ACETATE Given by Other 04/05/2021 10:58 EDT 80 mg (DEPO-MEDROL) injection 80 mg 80 mg, neural-axial, NOW X1, 1 dose, On Sat04/05/21 at 1115, Routine documented in this encounter Care Teams Manager Organizational Relationship Specialty Start Date End Date Shonda Sánchez, GIULIA PCP - General 03/14/21 01/31/[address] [place] [phone] Juma Herrera MD 12/08/18 [address] [place] [address] documented as of this encounter
--- OUTSIDE RECORDS SUMMARY | 2022-06-15 07:52 | XMS_ITS | Encounter Summary ---
:1975 Author Organization [facility] Address [address] [place] [address] Care Team Providers Name Role Phone Juma Herrera MD Unavailable Unavailable Juma Herrera MD Primary Care Provider Unavailable Reason for Referral Radiology Services (Routine) - New Request Specialty Diagnoses / Procedures Referred By Contact Refer red To Contact Diagnoses Low back pain, unspecified back pain laterality, unspecified chronicity, with sciatica presence unspecified Kj Child MD Procedures L SPINE 4 OR MORE VIEWS [facility] [place] [address] Referral ID Status Reason Start Date Expiration Date Visits V isits Requested Authorized [id number] New Request 04/03/2019 1 1 Reason for Visit Reason Onset Date Comments Back Pain 04/03/2019 Encounter Details Date Type Department Care Team Description 04/03/2019 Orders Only [facility] Kj Child lanny k pain, Spine Program - Moises Kovacs MD unspecified back pain [address] [place] [address] laterality, So [facility], unspe cified [id number] [address] chronicity, with [phone] sciatica presen ce (Work) unspecified (Primary Dx) [...] Telemedicine Neurology Kj Gloria MD PhD 1 [facility] [address] [place], [place] [phone] (Wo héctor) 09/06/2022 Procedure visit Pain Medicine Catalino Garrett M D 62 [facility] [address] [place] [address] (Jayjay anaya) 09/21/2022 Office Visit Bariatrics Allen Thompson PA-C [address] [facility], [facility], [address] [place], [place] [address] (Jayjay anaya) documented as of this encounter Procedures Procedure Name Priority Date/Time Associated Diagnosis Comme nts L SPINE 4 OR MORE Routine 04/03/2019 9:05 EDT Low back pain, R esults for this VIEWS unspecified back procedure a re in pain laterality, the results unspecified section. chronicity, with sciatica presence unspecified documented in this encounter Results L SPINE 4 OR MORE VIEWS (04/03/2019 9:05 EDT) Anatomical Region Laterality Modality Other Specimen Narrative [facility] CLEO SEYMOUR - 04/06/2019 13:08 EDT L SPINE 4 OR MORE VIEWS ??04/03/2019 9:05 AM Clinical History/Comments: M54.5-Low back pain-ICD-10; low back cole n. Technique: 4 views of the lumbar spine Comparison: Total spine radiographs July 14 8. Lumbar spine radiographs May 04, 2014. Findings: Posterior fusion of the spine and shante ctomy at L5-S1. No evidence of hardware complication. A spinal nerve stimulator device projects over the lower back. There is slight dextrocurvature of the l umbar spine on the AP view. Minimal anterolisthesis of L3 on L4 and minimal retrolisthesis of L4 on L5 in the neutral position. The anter olisthesis at L3-4 slightly increases in flexion (measuring approxim ately 4 mm) and reduces to normal alignment in extension. No change in alignment at any other level between flexion and extension. Akash tebral body heights are normal. Disc height loss at L5-S1. Surgical clips in the right upper quadra nt. Procedure Note Marques Roper MD, - 9 L SPINE 4 OR MORE VIEWS 04/03/2019 9:05 AM Clinical History/Comments: M54.5-Low back pain-ICD-10; low back cole n. Technique: 4 views of the lumbar spine Comparison: Total spine radiographs July 14 8. Lumbar spine radiographs May 04, 2014. Findings: Posterior fusion of the spine and shante ctomy at L5-S1. No evidence of hardware complication. A spinal nerve stimulator device projects over the lower back. There is slight dextrocurvature of the l umbar spine on the AP view. Minimal anterolisthesis of L3 on L4 and minimal retrolisthesis of L4 on L5 in the neutral position. The anter olisthesis at L3-4 slightly increases in flexion (measuring approxim ately 4 mm) and reduces to normal alignment in extension. No change in alignment at any other level between flexion and extension. Akash tebral body heights are normal. Disc height loss at L5-S1. Surgical clips in the right upper quadra nt. Performing Organization Address City/State/ZIP Code Phon e Number [facility] [place] documented in this encounter Visit Diagnoses Diagnosis Low back pain, unspecified back pain lat erality, unspecified chronicity, with sciatica presence unspecified - Primary documented in this encounter Care Teams Business Intelligence Reporting Analyst Relationship Specialty Start Date End Date Juma Herrera MD PCP - General 01/07/19 03/13/21 Juma Herrera MD 12/08/18 [address] [place] [address] documented as of this encounter
--- OUTSIDE RECORDS SUMMARY | 2022-06-15 07:52 | XMS_ITS | Encounter Summary ---
:1975 Author Organization [facility] Address [address] [place] [address] Care Team Providers Name Role Phone Juma Herrera MD Unavailable Unavailable Juma Herrera MD Primary Care Provider Unavailable Reason for Visit Reason Comments Neck Pain Shoulder Pain bilateral-9 Arm Pain right- sometimes Office Procedure (Routine) - Specialty Report Received Specialty Diagnoses / Procedures Referred By Contact Refer red To Contact Pain Medicine Diagnoses Other cervical disc degeneration, unspecified cervical region Sacroiliitis, not elsewhere classified ([facility]) Cervical Epidural Steroid Injection / NO ABN NEEDED [facility] Catalino Garrett MD Procedures MA NJX DX/THER SBST INTRLMNR CRV/THRC W/IMG GDN PROCEDURE MEDIUM [address] [place] [address] [address] [place] [address] Phone: Fax: Referral ID Status Reason Start Date Expiration Date Visits V isits Requested Authorized [id number] Specialty 10/21/2020 1 1 Report Received Encounter Details Date Type Department Care Team Description 11/17/2020 Procedure visit [facility] - Catalino Garrett DD D (degenerative disc disease), cervical (Primary Dx); [facility] Sacroiliitis ([facility]) Medical Center [address] [place] [address] Interventional Pain [address] [place], [place] [address] [place], [place] [phone] Social History Tobacco Use Types Packs/Day Years Used Date Former Smoker Quit: 05/14/20 09 Smokeless Tobacco: Never Used Alcohol Use [...] Sign Reading Time Taken Comments Blood Pressure 124/73 11/17/2020 0940 EDT Pulse 76 11/17/2020 0940 EDT Temperature 36 ??C (96.8 ??F) 11/17/2020 0903 EDT Respiratory Rate 18 11/17/2020 0903 EDT Oxygen Saturation 99% 11/17/2020 0903 EDT Inhaled Oxygen Concentration - - Weight [...] as of this encounter Patient Instructions Patient InstructionsBonnie Reyna RN - 11/17/2020 9:00 EDT [facility] [address] [address] Patient Instructions You have had [...] Verbal Taught to: Patient Barriers: None Outcomes: verbalized understanding BONNIE REYNA RN documented in this encounter Progress Notes Bonnie Reyna RN - 11/17/2020 0900 EDT ATTENTION: This Checklist should be reviewed with the patient, provider, nurse/MA, and supervisor pyrotechnic loading in the room prior to local anesthetic [...] scheduled procedure. olf, Catalino Brown MD - 11/17/2020 0900 EDT Procedure: C6-7 cervical epidural under fluoroscopy Date Performed: 11/17/2020 Heel Packer: Gerry MEHTA Hazardous Material Specialist: None See history and physical from Starr AVILA as well as scan media for clinical details, imaging,indications and medical necessity. Primarily neck and right sided arm pain. Did well with prior epidural in September, with around 80% relief of her pain for 3 months. No contraindication for the procedure. Written informed consent discussing the risks and alternatives were personally discussed with thepatient, signed, and scanned in the chart. History of C6-C7 ACDF performed by Dr Child in 2013 Referring provider: MARGARITA Hylton BP 124/73 (BP Cuff Location: Right arm, BP Patient Position: Sitting, BP Cuff Sizes: Adult, long) Pulse 76 Temp 36 ??C (96.8 ??F) (Temporal) Resp 18 SpO2 99% Gen AOX3, NAD Neuro CN2-12 grossly intact and symmetric Resp unlabored breathing C/V ext wwp MSK ambulates independently steady gait Full Strength in b/l ue and le keenan muscle groups TTP at b/l SI joints Pos gaenslan's test, pos yoman's test, pos karthik, pos compression test b/l Time Out: A time-out was completed prior to procedure verifying correct patient, procedure, site, positioning, and special equipment if applicable. Anesthesia: local Contrast Volume: 3 cc under live fluoroscopy. Appropriate epidurogram, no CSF or vascular uptake. Findings: Successful injection of 1cc of a solution containing methylprednisolone (80) under fluoroscopic guidance Complications: None immediate Condition: stable Diagnosis: 1. DDD (degenerative disc disease), cervical 2. Sacroiliitis ([facility]) Recommendations: 1) has evidence of SI joint dysfunction. Got 80% improvement for 6 mos with SI joint inj in past. Will reschedule 2) in-preson f/u to discuss knee pain Catalino Garrett MD I spent a total of 17 minutes on the date of this encounter meeting with the patient and reviewing documentation/coordinating care as described in the above note. This was separate from any procedures performed at the time of the visit. Madai sanchez MA - 11/17/2020 0900 EDT [facility] Rooming Note Does patient have a Casing Man? yes Is patient NPO? (Solids since midnight [...] you have any type of implanted device? Yes. Pt have nerve simulator in low back Vaccination: Have you had or are you planning to have a vaccination in the 2 weeks? no Other: documented in this encounter Plan of Treatment Upcoming Encounters Date Type Specialty Care Team Description 06/25/2022 Telemedicine Neurology Kj Gloria MD PhD 1 [facility], [address] [place], [place] [phone] (Wo rk) 09/06/2022 Procedure visit Pain Medicine Catalino Garrett M D [address] [place] [address] (Wo rk) 09/21/2022 Office Visit Bariatrics Allen Thompson PA-C [address] [facility] venue [facility], [facility], [address] [place] [address] (Wo rk) documented as [...] Iohexol (OMNIPAQUE 180) injection Given by Other 11/17/2020 9:39 EDT 2 mL 10 mL 10 mL, neural-axial, NOW X1, 1 dose, On Karen 11/17/20 at 1000, Routine methylPREDNISolone ACETATE (DEPO-MEDROL) Given by Other 021 9:40 EDT 80 mg injection 80 mg 80 mg, neural-axial, NOW X1, 1 dose, On Karen 11/17/20 at 1000, Routine documented in this encounter Care Teams Muffler Mechanic Relationship Specialty Start Date End Date Juma Herrera MD PCP - General 01/07/19 03/13/21 Juma Herrera MD 12/08/18 [address] [place] [address] documented as of this encounter
--- OUTSIDE RECORDS SUMMARY | 2022-06-15 07:52 | XMS_ITS | Encounter Summary ---
:1975 Author Organization [facility] Address [address] [place] [id number] Care Team Providers Name Role Phone Juma Herrera MD Unavailable Unavailable Juma Herrera MD Primary Care Provider Unavailable Reason for Visit Reason Comments Obesity Post op sleeve 5 years 6 Encounter Details Date Type Department Care Team Description 09/16/[address] [facility] [place]ie[place]-Radha, Morbid obesity ([facility]) (Primary Dx); Bariatric Surgery - ZHOU Luque S/P laparoscopic sleeve gastrectomy; [address] BMI 32.0-32.9,adult [address], [facility] [phone] [place], Level [address] [place] [address] (Wo rk) Social History Tobacco [...] - Inhaled Oxygen Concentration - - Weight 97 kg (213 lb 12.8 oz) 09/16/2020 1035 EST Height 172.7 cm (5' 7.99) 09/16/2020 1035 EST Body Mass Index 32.52 09/16/2020 1035 EST documented in this encounter Functional Status [...] documented as of this encounter Progress Notes Moira Carmen - 09/16/2020 1030 EST Nutrition Post Op Visit: Gastric Sleeve Subjective: Patient returns to clinic for post op nutritional counseling following bariatric surgery3 ago. Questionnaire Reviewed: Yes Intolerance Episodes: no Food Intolerances: none Current Exercise: None, struggles with chronic pain Objective: Current Weight: Wt Readings from Last 1 Encounters: 09/16/20 97 kg (213 lb 12.8 oz) Current BMI: Body mass index is Body mass index is 32.52 kg/m??.. Total Weight Loss: Total Loss in lbs (Weight from Initial Consult - Today's Weight): (!) 111.8 lbs Weight Change since Last Visit: +11 lbs, has lost 65 lbs since surgery Supplement Usage: Type Amount MVT Bariatric MVI 3x/day Recent Labs: Vit D 18.6 in 09/2019, B 12 and thiamine WNL Assessment: Adequate Meal Frequency: Yes Adequate Meal Composition: No; low in fruits/vegetables, too high in protein Exercise Adequacy: No Hydration/Caffeine: doing Well with water Alcohol Intake:not screened today Sleep: not discussed Stress/Anxiety/Depression: seems distraught today regarding weight gain Nutritional Issues: Tia is extremely concerned about weight regain. Her goal is 180 lbs. She became tearful today about returning to her preop wt, though she is >100 lbs down from preop weight today. For the past year, she has returned to her old eating habits, consuming larger portions of fried foods and cookies, candy, chips, and soda. She dislikes most meats, fruits, and vegetables, though does eat starchy vegetables such as peas and corn. She then found she had gained significant weight, so began to make many good changes 3 weeks ago. For the past 3 weeks, she has been very mindful of her nutritional intake, consuming mostly only protein foods for B and L and snacks, and meat/potato/veg at dinner time. She also completed a 5 day pouch reset diet last week and feels it shrunk her stomach. We discussed the bariatric plate method, but she was rather resistant to adding vegetables to her meals, believing she mostly needs to eat protein foods (and she dislikes most non-starchy vegetables). I encouraged at least pairing a protein food with a source of fiber and provided her with a list of high fiber foods. I suggested that staying active by adding small bursts of gentle activity (5-10 minutes several times per day) can help with managing chronic pain, but she states her pain is too bad toadd any exercise. Plan: Change intake: pair a protein and a source of fiber (fruit, vegetable, or whole grain) for each meal and snack Increase exercise: add short bursts of gentle activity several times per day (5-10 min 2-3 times per day) Supplement Changes (add vit D) Initiate food logs Education Provided: ?? High fiber foods ?? Bariatric Plate Method ?? Exercise routine for chronic pain ?? 10 Commandments of Bariatric Eating handout Rajani- Allen Garcia PA-C - 09/16/2020 1030 EST 09/16/2020 Tia Rooney is here in follow-up to her laparoscopic sleeve gastrectomy 5 years ago. The weight trend for the patient is: Weight at initial consult: 147.7 kg (325 lb 9.6 oz), to 91.4 kg (201 lb 6.4 oz) [] at the last post-op visit to today's Weight : 97 kg (213 lb 12.8 oz). PROBLEM LIST Patient Active Problem List Diagnosis ??? Lumbar radiculopathy ??? Os trigonum syndrome ??? Tarsal tunnel syndrome of right side ??? Idiopathic peripheral neuropathy ??? Cervicalgia ??? Morbid obesity with BMI of 45.0-49.9, adult ([facility]) SUBJECTIVE: Emesis: No complaints of emesis Nausea: No complaints of nausea Increased Volume Tolerance: No, not since she did the 5 day pouch diet Abdominal Pain: No complaints of abdominal pain Lightheadedness: Some with migraines Bowel Function: Normal Pannus: Yeasty rash in inguinal folds sometimes. OBJECTIVE: General Appearance: healthy appearing, alert and in no apparent distress Abdomen: Incisions well-healed Extremities: Normal Skin: Excess abdominal skin, no rashes ASSESSMENT: Doing well, Expected course without obvious complications and Weight Loss: Good, some weight regain but still down 112 pounds, she would like to lose about 20 pounds or so. Rare GERD requiring PPI. VitD deficiency seen on labs - start 1000 units D3. PLAN: 1. Return to clinic in 1 year(s). 2. No orders of the defined types were placed in this encounter. 3. No labs needed next time. Seen and discussed with Cold Roll Catcher at this visit. Allen Thompson PA-C 09/16/2020 10:57 documented in this encounter Plan of Treatment Upcoming Encounters Date Type Specialty Care Team Description 06/25/2022 Telemedicine Neurology Kj Gloria MD PhD [address] [facility] 2 [place] [address] (Jayjay anaya) 09/06/2022 Procedure visit Pain Medicine Catalino Garrett M D [address] [facility] [address] [place] [address] (Jayjay anaya) 09/21/2022 Office Visit Bariatrics Allen Thompson PA-C [address] [place] [address], [facility], [address] [place], [place] [address] (Wo rk) documented as of this encounter Visit Diagnoses Diagnosis Morbid obesity (HCC-CMS) (HCC) - Primary Morbid obesity S/P laparoscopic sleeve gastrectomy Bariatric surgery status BMI 32.0-32.9,adult Body Mass Index 32.0-32.9, adult documented in this encounter Historical Medications This list may reflect changes made after this encounter. Medication Sig Dispensed Refills Start Date End Date calcium carbonate/vitamin Take by mouth. 0 D3 (VITAMIN D-3 ORAL) MAGNESIUM ORAL Take 500 mg by mouth 0 daily. added in this encounter Care Teams Retail Beauty Specialist Relationship Specialty Start Date End Date Juma Herrera MD PCP - General 01/07/19 03/13/21 Juma Herrera MD 12/08/18 [address] [place] [address] documented as of this encounter
--- OUTSIDE RECORDS SUMMARY | 2022-06-15 07:52 | XMS_ITS | Encounter Summary ---
:1975 Author Organization [facility] Address [address] [place] [address] Care Team Providers Name Role Phone Juma Herrera MD Unavailable Unavailable Shonda Sánchez NP Primary Care Provider Encounter Details Date Type Department Care Team Description 04/05/2021 Hospital Encounter [facility] X ray [address] [place], [place] [id number] Social History Tobacco Use Types Packs/Day Years [...] PhD 1 [facility] [address] [place], [place] [address] (Jayjay anaya) 09/06/2022 Procedure visit Pain Medicine Catalino Garrett M D [address] [facility] [address] [place] [address] (Jayjay anaya) 09/21/2022 Office Visit Bariatrics Allen Thompson PA-C [address] [facility], Level [address] [place], [place] [address] (Jayjay anaya) documented as of this encounter Procedures Procedure Name Priority Date/Time Associated Diagnosis Comme nts PAIN CLINIC FL Routine 04/05/2021 11:04 Results f or this CERVICAL INJECTION EDT procedure are in the results section. documented in this encounter Results PAIN CLINIC FL CERVICAL INJECTION (04/05/2021 11:04 EDT) Specimen Narrative 04/05/2021 11:05 EDT This is a non-reportable exam. documented in this encounter Visit Diagnoses Not on filedocumented in this encounter Care Teams Petroleum Geologist Relationship Specialty Start Date End Date Shonda Sánchez, GIULIA PCP - General 03/14/21 01/31/[address] [place] [id number] Juma Herrera MD 12/08/18 [address] [place] [address] documented as of this encounter
--- OUTSIDE RECORDS SUMMARY | 2022-06-15 07:52 | XMS_ITS | Encounter Summary ---
:1975 Author Organization [facility] Address [address] [place] [address] Care Team Providers Name Role Phone Juma Herrera MD Unavailable Unavailable Juma Herrera MD Primary Care Provider Unavailable Shonda Sánchez MID LEVEL NET DEVELOPER Primary Care Provider [facility] Primary Care Provider [phone] Encounter Details Date Type Department Care Team Description 09/09/2019 Lab Requisition [facility] Brit Veliz E ncounter for other Pathology & MID LEVEL NET DEVELOPER general examination Laboratory Medicine [address] [facility] [place], [place] 111 [facility] [address] [place] [address] Social History Tobacco Use Types Packs/Day Years [...] Telemedicine Neurology Kj Gloria MD PhD 1 [facility] Level [address] [place], [place] [address] (Wo rk) 09/06/2022 Procedure visit Pain Medicine Catalino Garrett M D [address] [facility] [address] [place] [address] (Wo rk) 09/21/2022 Office Visit Bariatrics Allen Thompson PA-C 111 [facility], [facility], Level [address] [place], [place] [address] (Wo rk) documented as of this encounter Procedures Procedure Name Priority Date/Time Associated Diagnosis Comme nts SURGICAL PATHOLOGY Today 09/09/2019 9:15 EST Encounter for o ther Results for this general examination procedur e are in the results section. documented in this encounter Results SURGICAL PATHOLOGY (09/09/2019 9:15 EST) Final Diagnosis A. SUBMITTED ? PERITONEAL TUBULAR STRUCTURE? , EXCISION: [facility] Electronically - Features consistent with round ligament. CENTER signed by MCKAY Osborn MD on B. OVARIES AND FALLOPIAN TUB E, RIGHT, BILATERAL OOPHORECTOMY AND UNILATERAL SALPINGECTOMY: SERVICES 09/11/2019 at 1741 - Ovaries: - Cystically dilated follicles. - Adhesions. - Fallopian tube: - Hydrosalpinx. - Adhesions. - Status post prior ligation. - Detached fibrotic tissue w ith focal scarring, adhesions, and focal polarizable foreign material with associated giant cell reaction compatible with prior operative effect. Clinical History Chronic pelvic pain [facility] Attestation There was significant [facility] Electr onically resident/fellow CENTER signed by Jose Raul schneider, involvement in the LABORATORY Saniya Olvera MD on diagnostic evaluation SERVICES 020 at 1741 of this case. By the signature below, the attending physician certifies that they have personally conducted a gross and/or microscopic examination of the described specimens and rendered or confirmed the above diagnosis. Gross Description A. Received in formalin labe lled with proper patient identification (initials C, S) and 1. Peritoneal tubular structure is a white glistening tissue (5.3 cm in length ranging from 0.2 cm to 0.3 cm in [facility] diameter). The outer surface is partially hyperemic. The cut surfaces are ko- white. Four consumer sales representative cross sections are submitted in A1. CENTER LABORATORY B. Received in formalin labe lled with proper patient identification (initials C, S) and 2. Right + left ovaries with right fallopian tube is a segment of fallopian tube (4.9 cm in length x 2.0 cm in d SERVICES iameter) without fimbria wit h an attached ovary (3.4 x 2.5 x 1.7 cm), an additional detached ovary (4.0 x 2.3 x 1.1 cm) and two fragments of gillespie-brown soft tissue (aggregating to 1.6 x 1.5 x 0.6 cm). The serosal surface of the r ight fallopian tube is smooth and gillespie-purple with a white plastic ligation band present at one end. The fallopian tube is markedly dilated with a 1.7 cm lumen containing jordon ar serous fluid. The remaini ng cut surfaces are smooth and ko-white. The right and left ovary have smooth to slightly cerebriform ko-white to yellow outer surfaces. Sectioning of the ovaries reveals h eterogeneous parenchyma with several smooth-walled cysts (0.3 cm to 0.8 cm in greatest diameter). The cysts contain clear serous fluid and are without excrescences. The soft tissues have ko-brown cut s urfaces. Mitering Machine Operator sections are submitted as foll ows: BLOCK LOUIE B1-B2- right fallopian tube B3-B4- right ovary B5- left ovary B6- soft tissue Morenita Denzer 09/10/2019 09:50 Resident/Fellow: Rosamaria Lopez [facility] LAB[facility] SERVICES Scanned Images [facility] Specimen Tissue - Both ovaries (body structure) Tissue specimen (specimen) - Both ovarie s (body structure) Performing Organization Address City/State/ZIP Code Phon e Number [facility] [address] [place] [address] SERVICES documented in this encounter Visit Diagnoses Diagnosis Encounter for other general examination documented in this encounter Additional Health Concerns Infection Onset Date Last Indicated Resolved Time COVID-19 08/15/2021 08/15/2021 09/04/2021 22:15 EST documented as of this encounter Care Teams Hair Clipper Power Relationship Specialty Start Date End Date Juma Herrera MD PCP - General 01/07/19 03/13/21 Shonda Sánchez NP PCP - General 03/14/21 01/31/[address] [place] [phone] [facility], PCP - General 02/01/22 [address] [place] [address] Juma Herrera MD 12/08/18 [address] [place] [address] documented as of this encounter
--- OUTSIDE RECORDS SUMMARY | 2022-06-15 07:53 | XMS_ITS | Encounter Summary ---
:1975 Author Organization [facility] Address [address] [place] [address] Care Team Providers Name Role Phone Juma Herrera MD Primary Care Provider Unavailable Encounter Details Date Type Department Care Team Description 07/09/2018 Orders Only [facility] Starr Webster PA-C Medicine Program - T jimbo [facility] Scout [address] [place], [place] [address] Social History Tobacco Use [...] of a physical, mental, or emotional condition, do No 09/05/2015 you have difficulty doing errands alone such as visiting a doctor's office or shopping? (15 years old or older) Cognitive Status Response Date of Assessment Because of a physical, mental, or emotional condition, do No 09/05/2015 you have serious difficulty concentrating, remembering, or making decisions? (5 years old or older) documented as of this encounter Plan of Treatment Upcoming Encounters Date Type Specialty Care Team Description 06/25/2022 Telemedicine Neurology Kj Gloria MD PhD 1 [facility], [address] [place], [place] [address] (Wo rk) 09/06/2022 Procedure visit Pain Medicine Catalino Garrett M D [address] [facility] [address] [place] [address] (Wo rk) 09/21/2022 Office Visit Bariatrics Allen Thompson PA-C 111 [facility], [address] [place], [place] [address] (Wo rk) documented as of this encounter Visit Diagnoses Not on filedocumented in this encounter Care Teams Care Transitions Manager Relationship Specialty Start Date End Date Juma Herrera MD PCP - General 09/25/12 12/07/18 [address] [place] [address] documented as of this encounter
--- OUTSIDE RECORDS SUMMARY | 2022-06-15 07:53 | XMS_ITS | Encounter Summary ---
:1975 Author Organization [facility] Address [address] [place] [address] Care Team Providers Name Role Phone Juma Herrera MD Primary Care Provider Unavailable Reason for Visit Reason Onset Date Comments Appointment Related 07/09/2018 Encounter Details Date Type Department Care Team Description 07/09/2018 Telephone [facility] Starr Hart, Byron ointment Related Sports Medicine Program ELISABETH [address] [place], [place] [address] Social History Tobacco Use [...] or older) documented as of this encounter Miscellaneous Notes Telephone Encounter - Bee Jackson - 07/09/2018 1055 EST I called and left Tia a message with the date and time of her MRI Jul 14 check in at 7:15 am [facility], will need x ray prior to MRI. Follow up on Jul 14 at 11:45 Bee Jackson 07/09/2018 10:57 documented in this encounter Plan of Treatment Upcoming Encounters Date Type Specialty Care Team Description 06/25/2022 Telemedicine Neurology Kj Gloria MD PhD 1 [facility] Level [address] [place], [place] [address] (Wo rk) 09/06/2022 Procedure visit Pain Medicine Catalino Garrett M D 62 [facility] [address] [place] [address] (Wo rk) 09/21/2022 Office Visit Bariatrics Allen Thompson PA-C 111 [facility], [facility], [address] [place], [place] [address] (Wo rk) documented as of this encounter Visit Diagnoses Not on filedocumented in this encounter Care Teams Sweater Designer Relationship Specialty Start Date End Date Juma Herrera MD PCP - General 09/25/12 12/07/18 [address] [place] [address] documented as of this encounter
--- OUTSIDE RECORDS SUMMARY | 2022-06-15 07:53 | XMS_ITS | Encounter Summary ---
:1975 Author Organization [facility] Address [address] [place] [address] Care Team Providers Name Role Phone Juma Herrera MD Primary Care Provider Unavailable Reason for Visit Reason Comments Obesity POST OP SLEEVE 2 WEEKS () Encounter Details Date Type Department Care Team Description 09/20/2015 Office Visit [facility] Master Ugarte S/P laparoscopic Bariatric Surgery - MD Marques sleeve gastrectomy Dante [address] (Primary Dx) [address] [place] [address] [place], [place] [phone] Social History Tobacco Use Types Packs/Day Years Used Date Former Smoker Quit: 01/14/20 09 Alcohol Use Standard Drinks/Week Comments Yes 0 [...] - Inhaled Oxygen Concentration - - Weight 116.6 kg (257 lb) 09/20/2015 1341 EST Height 172.7 cm (5' 7.99) 09/20/2015 1341 EST Body Mass Index 39.09 09/20/2015 1341 EST documented in this encounter Functional Status [...] or older) documented as of this encounter Progress Notes Lux Dumont, RD - 09/20/2015 1522 EST Nutrition Post Op Visit: Gastric Sleeve Subjective: Patient returns to clinic for post op nutritional counseling following bariatric surgery~ 2 weeks ago.I am hungry. I started blended foods three days ago. I don't know what to eat. I don't like the baby food. I have been eating mashed potatoes with gravy and hot sauce.I am sick of my protein shake. Questionnaire Reviewed: Yes Intolerance Episodes: no Food Intolerances: None Current Exercise:Minimal walking Objective: Current Weight: Wt Readings from Last 1 Encounters: 09/20/15 116.574 kg (257 lb) Current BMI: Body mass index is Body mass index is 39.09 kg/(m^2).. Total Weight Loss: Lost 22.8 lbs since surgery Weight Change since Last Visit:-10 lbs Supplement Usage: Type Amount MVT Not started Assessment: Adequate Meal Frequency: Yes Adequate Meal Composition: Yes Exercise Adequacy: No Nutritional Issues:Tia C/O difficulty with food choices as she has not explored other meal choices on her blended diet. Reviewed blended diet recommendations and encouraged her to review the menus she has completed for her blended diet homework. Also suggested unflavored whey protein powder to addto her foods as she is tired of her protein shakes. Also advised blended smoothies with soft fruit and protein shakes as tolerated. Plan: Continue current diet and exercise Change intake:Eat slowly and chew foods well; no liquids with meals;~70 g protein a day; advance tosoft foods on 10/03/15 as tolerated Increase exercise(walking) to 150 min a week Supplement Changes:start chew MVM Initiate food logs Education Provided: Weight Control:1-2 lbs per week Other:Diet progression reviewed verbally Master Ugarte MD - 09/20/2015 1425 EST 09/20/2015 Tia Spain is here in follow-up to her laparoscopic sleeve gastrectomy. The weight trend for thepatient is: , to 126.463 kg (278 lb 12.8 oz) [08/19/2015] at the last post-op visit to today's Weight : (!) 116.574 kg (257 lb). PROBLEM LIST Patient Active Problem List Diagnosis ??? Lumbar radiculopathy ??? Os trigonum syndrome ??? Tarsal tunnel syndrome of right side ??? Idiopathic peripheral neuropathy ??? Cervicalgia ??? Morbid obesity with BMI of 45.0-49.9, adult SUBJECTIVE: Emesis: No complaints of emesis Nausea: No complaints of nausea Increased Volume Tolerance: no Abdominal Pain: No complaints of abdominal pain Lightheadedness: No complaints of lightheadedness Bowel Function: Normal Pannus: No problems related to pannus reported OBJECTIVE: General Appearance: obese Abdomen: Incision well-healed Extremities: Normal Skin: Normal ASSESSMENT: Doing well and Weight Loss: good PLAN: 1. Return to clinic in 3 week(s). 2. No orders of the defined types were placed in this encounter. 3. Seen and discussed with Customer Quality Engineer at this visit. Master Ugarte MD 09/20/2015 14:25 documented in this encounter Plan of Treatment Upcoming Encounters Date Type Specialty Care Team Description 06/25/2022 Telemedicine Neurology Kj Gloria MD PhD 1 [facility], Level [address] [place], [place] [phone] (Wo rk) 09/06/2022 Procedure visit Pain Medicine Catalino Garrett M D 62 [facility] [address] [place] [address] (Wo rk) 09/21/2022 Office Visit Bariatrics Allen Thompson PA-C 111 [facility], [facility], [address] [place], [place] [address] (Wo rk) documented as of this encounter Visit Diagnoses Diagnosis S/P laparoscopic sleeve gastrectomy - Pr imary Bariatric surgery status documented in this encounter Care Teams Dental Instructor Relationship Specialty Start Date End Date Juma Herrera MD PCP - General 09/25/12 12/07/18 [address] [place] [address] documented as of this encounter
--- OUTSIDE RECORDS SUMMARY | 2022-06-15 07:53 | XMS_ITS | Encounter Summary ---
:1975 Author Organization [facility] Address [address] [place] [address] Care Team Providers Name Role Phone Juma Herrear MD Primary Care Provider Unavailable Reason for Visit Reason Comments Obesity post op sleeve 6 weeks Encounter Details Date Type Department Care Team Description 11/01/2015 Post-op Visit [facility] Master Ugarte S/P laparoscopic Bariatric Surgery - MD Marques sleeve gastrectomy [place] [address] (Primary Dx) [address] [place] [address] [place], [place] [phone] Social History Tobacco Use Types Packs/Day [...] - Inhaled Oxygen Concentration - - Weight 108.2 kg (238 lb 9.6 oz) 11/01/2015 1217 EST Height 172.7 cm (5' 7.99) 11/01/2015 1217 EST Body Mass Index 36.29 11/01/2015 1217 EST documented in this encounter Functional Status [...] encounter Progress Notes Lux Dumont, RD - 11/01/2015 8953 EST Nutrition Post Op Visit: Gastric Sleeve Subjective: Patient returns to clinic for post op nutritional counseling following bariatric surgery~ 6 weeks ago. Questionnaire Reviewed: Yes Intolerance Episodes: yes ,regurgitation due to eating too fast Food Intolerances:Pasta, meat Current Exercise:Walking on Treadmill 10-20 min X 3-4 days a week Objective: Current Weight: Wt Readings from Last 1 Encounters: 11/01/15 108.228 kg (238 lb 9.6 oz) Current BMI: Body mass index is Body mass index is 36.29 kg/(m^2).. Total Weight Loss: Total Loss in lbs (Weight from Initial Consult - Today's Weight): (!) 87 lbs Weight Change since Last Visit:-18.4 lbs and lost 41.2 lbs since surgery Supplement Usage: Type Amount MVT Woo Assessment: Adequate Meal Frequency: Yes Adequate Meal Composition: No: low protein Exercise Adequacy: Yes Nutritional Issues: Tia has had an excellent weight loss since surgery. Food recall indicates low protein intake as she dislikes her protein shakes. She just started taking [employer] protein drink(has 20 g protein and caffeine). Advised her to increase protein intake to ~ 70 g a day. She C/O diarrhea since her surgery. Advised her to watch added fat, added sugar in her meal choices and protein shakes. She has stopped taking her Prilosec after her last visit. Advised her to continue Prilosec until 3 months post-op. Plan: Continue current diet and exercise Change intake:Increase protein intake to 70 g a day; add protein snacks and watch added fats, addedsugars and lactose to help decrease diarrhea Supplement Changes:Continue chew MVM; add B12, B-50 and Ca/Vit D; start Prilosec today and continueuntil 3 months post-op Initiate food logs Education Provided: Weight Control:1-2 lbs per week Other:Protein needs; labs prior to next visit Master Ugarte MD - 11/01/2015 1309 EST 11/01/2015 Tia Spain is here in follow-up to her laparoscopic sleeve gastrectomy. The weight trend for thepatient is: Weight at initial consult: 147.691 kg (325 lb 9.6 oz), to 116.574 kg (257 lb) [09/20/2015] at the last post-op visit to today's Weight : (!) 108.228 kg (238 lb 9.6 oz). PROBLEM LIST Patient Active Problem List [...] related to pannus reported OBJECTIVE: General Appearance: alert Abdomen: Incision well-healed Extremities: Normal Skin: Normal ASSESSMENT: Doing well and Weight Loss: good PLAN: 1. Return to clinic in 6 week(s). 2. No orders of the defined types were placed in this encounter. 3. Seen and discussed with Prototype Machinist at this visit. Master Ugarte MD 11/01/2015 13:09 documented in this encounter Plan of Treatment Upcoming Encounters Date Type Specialty Care Team Description 06/25/2022 Telemedicine Neurology Kj Gloria MD PhD 1 [facility], [address] [place], [place] [phone] (Wo rk) 09/06/2022 Procedure visit Pain Medicine Catalino Garrett M D [address] [facility] [address] [place] [address] (Wo rk) 09/21/2022 Office Visit Bariatrics Allen Thompson PA-C [address] [facility], [facility], [address] [place], [place] [address] (Wo rk) documented as of this encounter Visit Diagnoses Diagnosis S/P laparoscopic sleeve gastrectomy - Pr imary Bariatric surgery status documented in this encounter Care Teams Target Aircraft Technician Relationship Specialty Start Date End Date Juma Herrera MD PCP - General 09/25/12 12/07/18 [address] [place] [address] documented as of this encounter
--- OUTSIDE RECORDS SUMMARY | 2022-06-15 07:53 | XMS_ITS | Encounter Summary ---
:1975 Author Organization [facility] Address [address] [place] [address] Care Team Providers Name Role Phone Juma Herrera MD Primary Care Provider Unavailable Reason for Visit Reason Comments Obesity 1ST POST OP SLEEVE (09/05/15) Encounter Details Date Type Department Care Team Description 09/14/2015 Office Visit [facility] Master Ugarte S/P laparoscopic General Surgery - MD Marques sleeve gastrectomy [address] (Primary Dx) [address] [place] [address] [place], [place] [phone] Social History Tobacco Use Types Packs/Day [...] - Inhaled Oxygen Concentration - - Weight 121.1 kg (267 lb) 09/14/2015 1305 EST Height 172.7 cm (5' 7.99) 09/14/2015 1305 EST Body Mass Index 40.61 09/14/2015 1305 EST documented in this encounter Functional Status [...] as of this encounter Progress Notes Lux Dumont RD - 09/16/2015 5282 EST Nutrition Post Op Visit: Gastric Sleeve Subjective: Patient returns to clinic for post op nutritional counseling following bariatric surgery~ 9 days ago. Questionnaire Reviewed: Yes Intolerance Episodes: Yes, regurg X 1 due to drinking too fast Food Intolerances:None Current Exercise: None Objective: Current Weight: Wt Readings from Last 1 Encounters: 09/14/15 121.11 kg (267 lb) Current BMI: Body mass index is Body mass index is 40.61 kg/(m^2).. Total Weight Loss: -11.8 lbs since surgery Assessment: Adequate Meal Frequency: Yes Adequate Meal Composition: Yes Exercise Adequacy: No Nutritional Issues: Tia has been tolerating full liquids with > 50 g protein a day. She has been tolerating ~60-76 ounces of fluids a day. Plan: Continue current diet and exercise Change intake:advance to blended foods on 09/19 as tolerated Increase exercise(walking) to 150 minutes a week Supplement Changes: chewable MVM daily starting 09/19 Initiate food logs Education Provided: Weight Control:1-2 lbs per week Other:reviewed diet progression; follow-up in 1 week Master Ugarte MD - 09/14/2015 1333 EST 09/14/2015 Tia Spain is here in follow-up to her laparoscopic sleeve gastrectomy. The weight trend for thepatient is: , to 123.56 kg (272 lb 6.4 oz) [09/05/2015] at the last post-op visit to today's Weight : (!) 121.11 kg (267 lb). PROBLEM LIST Patient Active Problem List [...] good PLAN: 1. Return to clinic in 1 week(s). 2. No orders of the defined types were placed in this encounter. 3. aminah peace yfn removed Seen and discussed with Extractions Technologist at this visit. Master Ugarte MD 09/14/2015 13:34 documented in this encounter Plan of Treatment Upcoming Encounters Date Type Specialty Care Team Description 06/25/2022 Telemedicine Neurology Kj Gloria MD PhD 1 [facility] Level 2 [place], [place] [phone] (Jayjay anaya) 09/06/2022 Procedure visit Pain Medicine Catalino Garrett M D [address] [facility] [address] [place] [address] (Jayjay anaya) 09/21/2022 Office Visit Bariatrics Allen Thompson PA-C [facility], [address] [place], [place] [address] (Jayjay anaya) documented as of this encounter Visit Diagnoses Diagnosis S/P laparoscopic sleeve gastrectomy - Pr imary Bariatric surgery status documented in this encounter Historical Medications This list may reflect changes made after this encounter. Medication Sig Dispensed Refills Start Date End Date diphenhydrAMINE (BENYLIN) Take 50 mg by mouth 0 09/28/2016 12.5 mg/5 mL syrup every 4 hours. Reported on 09/28/2016 added in this encounter Care Teams Crayon Painter Relationship Specialty Start Date End Date Juma Herrera MD PCP - General 09/25/12 12/07/18 [address] [place] [address] documented as of this encounter
--- OUTSIDE RECORDS SUMMARY | 2022-06-15 07:53 | XMS_ITS | Encounter Summary ---
:1975 Author Organization [facility] Address [address] [place] [address] Care Team Providers Name Role Phone Juma Herrera MD Unavailable Unavailable Juma Herrera MD Primary Care Provider Unavailable Reason for Visit Reason Comments Neck Pain neck pain radiating down rig ht arm Encounter Details Date Type Department Care Team Description 01/28/2019 Office Visit [facility] - Kavon Butler, DDD (degenerative disc disease), cervical (Primary Dx); [facility] S/P cervical spinal fusion [facility] [address] [place] [phone] Social History Tobacco Use Types Packs/Day Years [...] Sign Reading Time Taken Comments Blood Pressure 133/59 01/28/2019 0843 EDT Pulse 63 01/28/2019 0843 EDT Temperature 36.3 ??C (97.4 ??F) 01/28/2019 0739 EDT Respiratory Rate 18 01/28/2019 0739 EDT Oxygen Saturation - - Inhaled Oxygen Concentration - - Weight 90.3 kg (199 lb) 01/28/2019 0739 EDT Height 172.7 cm (5' 8) 01/28/2019 0739 EDT Body Mass Index 30.26 01/28/2019 0739 EDT documented in this encounter Functional Status Functional [...] making decisions? documented as of this encounter Discharge Diagnoses Diagnosis M50.30 Other cervical disc degeneration, unspecified cervical region-M50.30[ICD-10-CM] Z98.1 Arthrodesis status-Z98.1[ICD-10-CM ] documented in this encounter Patient Instructions Patient InstructionsCoShantelle riggins RN - 01/28/2019 7:45 EDT [facility] [address] [id number] Patient Instructions You have had your cervical [...] or continued numbness or weakness of the arms please call our office immediately. Instructions for follow-up If you have any questions about your block, please call Patient Education Topic: Method: Handout and Verbal Taught to: Patient Barriers: None Outcomes: independent and verbalized understanding Shantelle Gautam RN documented in this encounter Discharge Disposition Disposition Code Departure Means Destination Auto Discharge documented in this encounter Progress Notes Kavon Butler - 01/28/2019 0745 EDT Procedure: C6-7 cervical epidural under fluoroscopy Date Performed: 01/28/2019 Wind Energy Technician: Kavon Butler M.D. Community Health Coordinator: Rosalino Gottlieb MD See history and physical from Starr AVILA [...] Child in 2015 Referring provider: MARGARITA Hylton Time Out: A time-out was completed prior to procedure verifying correct patient, procedure, site, positioning, and special equipment if applicable. Anesthesia: local Contrast Volume: 3 cc under live fluoroscopy. Appropriate epidurogram, no CSF or vascular uptake. Findings: Successful injection of 1cc of a solution containing methylprednisolone (80) under fluoroscopic guidance Complications: None immediate Condition: stable Diagnosis: 1. DDD (degenerative disc disease), cervical 2. S/P cervical spinal fusion Recommendations: 1) activity as tolerated 2) Follow up with MARGARITA Hylton Attending attestation: I saw and examined the patient with the resident/fellow. I agree with the findings and plan of care documented in the resident's/fellow's note. I was present and participated during the entire procedure. Kavon Butler MD Shantelle herzog RN - 01/28/2019 0745 EDT Contrast Dye Used: 2mls Wasted: 8mls [facility] Rooming Note Does patient have a Compounding Technician? yes Is patient NPO? (Solids since midnight & liquids for 4 hrs) Yes Last ate at 8:30PM yesterday Blood Thinners: Is patient on Blood Thinners? no If yes, taking? If stopped, who authorized stopping? Related comments: Infections: Any recent infections, fever of illnesses? no If on antibiotics, is it 7-10 days past the date of completion of antibiotics? : (for females of child-bearing age) no Is there a chance current ? Do you have any type of implanted device? no Other: documented in this encounter Plan of Treatment Upcoming Encounters Date Type Specialty Care Team Description 06/25/2022 Telemedicine Neurology Kj Gloria MD PhD 1 [facility] 2 [place], [place] [phone] (Wo héctor) 09/06/2022 Procedure visit Pain Medicine Catalino Garrett M D [address] [facility] [address] [place] [address] (Wo héctor) 09/21/2022 Office Visit Bariatrics Allen Thompson PA-C [address] [place] [address], [address] [place], [place] [address] (Wo rk) documented as of this encounter Visit Diagnoses Diagnosis DDD (degenerative disc disease), cervica l - Primary Degeneration of cervical intervertebral disc S/P cervical spinal fusion Arthrodesis status documented in this encounter Administered Medications Inactive Administered Medications - up to 3 most recent administrations Medication Order MAR Action Action Date Dose Rate Site methylPREDNISolone ACETATE Given by Other 01/28/2019 8:30 EDT 80 mg (DEPO-MEDROL) injection 80 mg 80 mg, neural-axial, NOW X1, 1 dose, On Sat01/28/19 at 0900, Routine documented in this encounter Discontinued Medications Medication Sig Discontinue Reason Start Date End Date PROPRANOLOL HCL Take 120 mg by mouth daily Discontinued by another 01/28/2019 (PROPRANOLOL clinician ORAL)Indications: migraine documented as of this encounter Care Teams Information Coordinator Relationship Specialty Start Date End Date Juma Herrera MD PCP - General 01/07/19 03/13/21 Juma Herrera MD 12/08/18 [address] [place] [address] documented as of this encounter
--- OUTSIDE RECORDS SUMMARY | 2022-06-15 07:53 | XMS_ITS | Encounter Summary ---
:1975 Author Organization [facility] Address [address] [place] [address] Care Team Providers Name Role Phone Juma Herrera MD Unavailable Unavailable Juma Herrera MD Primary Care Provider Unavailable Reason for Visit Reason Onset Date Comments Appointment Related 01/08/2019 Encounter Details Date Type Department Care Team Description 01/08/2019 Telephone [facility] - Chris Butler MD Appointment Related [facility] [address] [facility] Interventional Pain [address] [phone] [place] [address] Social History Tobacco Use Types Packs/Day Years [...] this encounter Miscellaneous Notes Telephone Encounter - Bharati Doyle - 01/12/2019 1016 EDT 01/28/19 A 7:45 Telephone Encounter - Aiyana Wong - 01/08/2019 1514 EDT Please schedule patient for repeat ??C6-[address] Butler. No authorization is needed. elephone Encounter - Shantelle Gautam RN - 01/08/2019 1441 EDT Injection history: 09/15/2018: Diagnostic C6-7 cervical epidural under fluoroscopy 07/08/2014: bilateral sacroiliac joint injection ??06/13/2012: epidural steroid injection at C7-T1 under fluoroscopy. Date and type of procedure: 09/15/2018: Diagnostic C6-7 cervical epidura Provider: Dr. Butler Hours of relief: 3 months % of relief: 80% Next appointment: 09/15/2018: Plan per Dr. Butler-Follow up with MARGARITA Hylton Forwarded to MARGARITA to obtain prior auth for repeat C6-7 cervical epidural elephone Encounter - Aiyana Wong - 01/08/2019 1358 EDT Pt had 80% relief for 3 months and would like another CTLESI. documented in this encounter Plan of Treatment Upcoming Encounters Date Type Specialty Care Team Description 06/25/2022 Telemedicine Neurology Kj Gloria MD PhD 1 [facility], Level [address] [place], [place] [phone] (Wo rk) 09/06/2022 Procedure visit Pain Medicine Catalino Garrett M D [address] [facility] [address] [place] [address] (Wo rk) 09/21/2022 Office Visit Bariatrics Allen Thompson PA-C [address] [facility], [address] [place], [place] [address] (Wo rk) documented as of this encounter Visit Diagnoses Not on filedocumented in this encounter Care Teams Charter Coach Driver Relationship Specialty Start Date End Date Juma Herrera MD PCP - General 01/07/19 03/13/21 Juma Herrera MD 12/08/18 [address] [facility] [place] [address] documented as of this encounter
--- OUTSIDE RECORDS SUMMARY | 2022-06-15 07:53 | XMS_ITS | Encounter Summary ---
:1975 Author Organization [facility] Address [address] [place] [address] Care Team Providers Name Role Phone Juma Herrera MD Primary Care Provider Unavailable Reason for Visit Reason Comments Post-op Problem Patient arrives via car. Gem goddard had gastric sleeve surgery on September 05. Patient noticed yesterday there was decreased drainage in MELANIE drain and today there is no drainage. There is drainage around the tube. Encounter Details Date Type Department Care Team Description 09/11/2015 Emergency [facility] Center Pastor Denton PA-C [address] [address] MELANIE drain, broken, Emergency Department Kj Urbina IV, MD [address] [address] initial encounter - [facility] Emergency, MD Jose (Primary Dx) [address] [place] [address] Social History Tobacco Use Types [...] Sign Reading Time Taken Comments Blood Pressure 133/79 09/11/2015921 EST Pulse 81 09/11/2015921 EST Temperature 37.2 ??C (98.9 ??F) 09/11/2015921 EST Respiratory Rate 14 09/11/2015921 EST Oxygen Saturation 98% 09/11/2015921 EST Inhaled Oxygen Concentration - - Weight 123.4 kg (272 lb) 09/11/2015921 EST Height 172.7 cm (5' 7.99) 09/11/2015921 EST Body Mass Index 41.37 09/11/2015921 EST documented in this encounter Functional Status [...] or older) documented as of this encounter Discharge Instructions VernonHerKj dominguez IV, MD - 09/11/2015 Please follow up as scheduled with your surgeon. Return for fever or significant abdominal pain. documented in this encounter Medications at Time of Discharge Medication Sig Dispensed Refills Start Date End Date duloxetine (CYMBALTA) 30 mg Take 90 mg by mouth daily Take with 60mg cap to =90mg dose 0 05/16/2011 capsule methylphenidate (RITALIN Take by mouth 2 0 SR; METADATE ER; METHYLIN times daily. Takes ER) 20 mg SR tablet 20 mg every morning, 20 mg every afternoon, 10 mg every evening. pregabalin (LYRICA) 50 mg Take 2 Caps by 180 Cap 3 2011 capsule mouth 3 times daily. prochlorperazine Take 1 Tab by 60 Tab 0 08/31/2015 (COMPAZINE) 10 mg mouth every 6 tabletIndications: S/P hours as needed laparoscopic sleeve for Nausea gastrectomy, Gastroesophageal reflux disease without esophagitis acetaminophen (TYLENOL) 650 Take 20.3 mL by 0 02/201609/27/2017 mg/20.3 mL solution mouth every 4 hours LORazepam (ATIVAN) 0.5 mg Take 0.5 mg [...] taking liquid form Daily Max: 60 mg oxyCODONE (ROXICODONE) 5 Take 5-10 mL by 700 mL 0 201509/28/2016 mg/5 mL solution mouth every 4 hours as needed for Pain Daily Max: 60 mg oxyCODONE (ROXICODONE) 5 Take 5-10 mL by 150 mL 0 201409/27/2017 mg/5 mL solution mouth every 4 hours as needed for Pain starting after surgery on 09/05/14 Daily Max: 60 mg pediatric multivitamin Take 1 Tab by 0 09/07/2015 05/17/2022 (JUAN CHEW VIT) chewable mouth daily Hold tablet for 2 weeks PROPRANOLOL HCL Take 120 mg by mouth daily 0 01/28/2019 (PROPRANOLOL ORAL)Indications: migraine rizatriptan (MAXALT) 10 mg Take 10 mg by 0 12/18/2021 tablet mouth once as needed. May repeat in 2 hours if needed documented as of this encounter Discharge Disposition Disposition Code Departure Means Destination Home or Self Care Car Home documented in this encounter Consult Notes Raymundo Rahman MD - 09/11/2015 1330 EST INPATIENT CONSULTATION SERVICE DATE: 09/11/2015 Reason for consultation: Drainage around MELANIE drain at incision REFERRING PHYSICIAN: Kj Urbina IV, MD CONSULTING PHYSICIAN: Ulices Long MD HISTORY OF PRESENT ILLNESS: The patient is a 40-year-old female who underwent laparoscopic sleeve gastrectomy with Dr. Ugarte on 09/05/2015. Her postoperative course was uneventful. She went home on 09/07/2015. She presents today in the ED with complaints of draining around her surgical drain. She st ates that she has had increased drainage around the drain site, which has saturated 2 washcloths overnight. Otherwise, she is tolerating her diet. She does note large clots in her menstrual bleeding and mucousy stools lately. Otherwise, no nausea, vomiting, fevers, chills, shortness of breath or chestpain at home. PHYSICAL EXAM: Vital signs: Temperature 37.2, pulse 81, respirations 14, blood pressure 133/79, satting 98% on room air. General: Alert and oriented x3, no apparent distress. Respiratory: Bilateral chest rise, nonlabored respirations. Cardiovascular: Limbs are warm and well perfused. Regular rate and rhythm per pulse. Abdomen: Soft, nontender, nondistended. Katie in place from surgery. Incisions clean, dry, intact and well-healing, some skin irritation from tape sites, serous drainage around MELANIE drain present in right upper quadrant. Extremities: Moves all extremities equally. No clubbing, cyanosis or edema. LABS: None. RADIOLOGY: None. ASSESSMENT AND PLAN: This is a 40-year-old female status post laparoscopic sleeve gastrectomy for morbid obesity. Postoperative course has been normal except for some peridrain leakage. The patient wasseen in the ED, drain was removed. Open incision was closed with 2 interrupted 3-0 nylon sutures and dressed with 4 x 4 gauze and tape. The patient was instructed to change the dressing as needed. She has followup with Dr. Ugarte on 09/14/2015 this week. She was instructed to call the hospital or report to the ED with any new bleeding, fevers, chills or intractable abdominal pain. The patient voiced clear understanding to instructions and had no further questions or concerns. Ulices Long MD FACS 11 28 AM / Raymundo Rahman MD ln Confirmation: [id number] Dictation ID: [id number] cc: Ulices Long MD FACS documented in this encounter ED Notes Kj Urbina IV, MD - 09/11/2015 0931 EST DOS: 09/11/2015 Chief Complaint Patient presents with ??? Post-op Problem Patient arrives via car. Patient had gastric sleeve surgery on September 05. Patient noticed yesterday there was decreased drainage in MELANIE drain and today there is no drainage. There is drainage around the tube. HPI The patient is a 40 y.o. female who presents today with Post-op Problem HPI Comments: I, Manisha Perry, am scribing for Rishabh Denton, PA;H* while he/she is personally performing the service. Manisha Perry 09/11/2015 9:31 Tia Spain is a 40 y.o. female with a history of s/p gastric sleeve 09/05 who presents after noting decreased drainage into her MELANIE drain as of yesterday. Patient endorses increased drainage around the MELANIE drain which she has used multiple pieces of gauze to wipe. Her at bedside reports thathe has noted further increase in drainage from the wound site when the patient stands up. Patient reports typical drainage of 10 cc's and emptying of her MELANIE ever 12 hours. Patient has been without fever. The history is provided by the patient. Post-op Problem This is a new problem. The current episode started yesterday. The problem occurs constantly. The problem has not changed since onset.Nothing aggravates the symptoms. Nothing relieves the symptoms. She has tried nothing for the symptoms. Review of Systems Review of Systems Constitutional: Negative for fever. Skin: Positive for wound (Wound drainage ). All other systems reviewed and are negative. The patient's past medical, family and social history was reviewed and updated as needed. Allergies Allergen Reactions ??? Adhesive Other (See Comments) Skin irritation, paper tape ok ??? Bee Sting [Hymenoptera Allergenic Extract] Swelling Fever and vomiting ??? Codeine Hives and Nausea And Vomiting ??? Other - See Comments Nausea And Vomiting Root beer Vital Signs Vitals Reassessment?: Yes Temp: 37.2 ??C (98.9 ??F) Temp src: Tympanic Pulse: 81 Resp: 14 SpO2: 98 % BP: 133/79 mmHg BP Device: BP Machine Patient Position: Sitting BP Cuff Location: Left arm O2 Device: None (Room air) Physical Exam Constitutional: She is oriented to person, place, and time. She appears well- developed and well-nourished. HENT: Head: Normocephalic and atraumatic. Eyes: EOM are normal. Neck: Neck supple. Cardiovascular: Intact distal pulses. Abdominal: She exhibits no distension. Obese. Four surgical scars with intact katie no infection. MELANIE in right upper quadrant. Wound draining serous fluid around drainage site. Small amount of serous fluid in MELANIE drain itself. No seroma, induration or abscess. Musculoskeletal: She exhibits no edema. Neurological: She is alert and oriented to person, place, and time. Skin: Skin is warm and dry. Skin changes at dressing sites. Psychiatric: She has a normal mood and affect. Nursing note and vitals reviewed. RESULTS Procedures ED COURSE A medical screening exam was performed. The patient is a 40 y/o female s/p gastric sleeve on 09/05 who presents with serous fluid drainage around the site of her MELANIE drain. at bedside reports increased drainage when she stands upright. On exam she had four surgical scars on the abdomen with intact katie and no sign of infection. Wound actively draining serous fluid around drainage site. Patient without seroma, induration or abscess. Spoke to the Surgery resident covering the bariatric service. Surgery saw the patient and removed the MELANIE drain. Sutures placed by the Surgery resident. Patientwas discharged home after being evaluated by Surgery. ASSESSMENT AND PLAN Final diagnoses: MELANIE drain, broken, initial encounter DISPOSITION: Discharged The patient's pain was managed to an adequate level weighing risk vs. benefit of further medications. Upon departure from the Emergency Department, the patient's pain was 0 on a zero to ten scale. Condition at departure from the Emergency Department: Improved PCP: Juma Herrera [facility] This documentation is recorded by Manisha Perry acting as Scribe under the direction and presence of Kj Urbina IV,*. Kj Urbina IV,*: I personally performed the services recorded by the scribe in my presence. I confirm the scribe's documentation has been reviewed by me to accurately and completely record mywork, treatment, procedures, and medical decision making. 09/19/2015 23:24 No flowsheet data found. documented in this encounter Plan of Treatment Upcoming Encounters Date Type Specialty Care Team Description 06/25/2022 Telemedicine Neurology Kj Gloria MD PhD 1 [facility], [address] [place], [place] [address] (Wo rk) 09/06/2022 Procedure visit Pain Medicine Catalino Garrett M D [address] [facility] [address] [place] [address] (Wo rk) 09/21/2022 Office Visit Bariatrics Allen Thompson, PALizettC 111 [facility], [facility], [address] [place], [place] [address] (Wo rk) documented as of this encounter Visit Diagnoses Diagnosis MELANIE drain, broken, initial encounter - Pr imary documented in this encounter Care Teams Ribbon Winder Relationship Specialty Start Date End Date Juma Herrera MD PCP - General 09/25/12 12/07/18 [address] [place] [address] documented as of this encounter
--- OUTSIDE RECORDS SUMMARY | 2022-06-15 07:53 | XMS_ITS | Encounter Summary ---
:1975 Author Organization [facility] Address [address] [place] [address] Care Team Providers Name Role Phone Jmua Herrera MD Primary Care Provider Unavailable Reason for Visit Reason Comments Neck Pain neck pain radiating down rig ht arm Consult (Routine) - Specialty Report Received Specialty Diagnoses / Procedures Referred By Contact Refer red To Contact Pain Medicine Diagnoses Neck pain Pain of right upper extremity Osteoarthritis of cervical spine, unspecified spinal osteoarthritis complication status [facility] [place] [address] [place] [phone] Phone: Fax: Referral ID Status Reason Start Expiration Visits Visits Date Date Requested Authorized [id number] Specialty Specialty 1 1 Report Services 8 Received Required Encounter Details Date Type Department Care Team Description 09/15/2018 Office Visit [facility] - Kavon Butler, DDD (degenerative [facility] MD disc disease), [facility] [address] MINDY ANGUIANO cervical (Primary Dx) Interventional Pain DR [address] [place], [place] [phone] Social History Tobacco Use Types Packs/Day Years [...] Sign Reading Time Taken Comments Blood Pressure 125/81 09/15/2018 0844 EST Pulse 70 09/15/2018 0844 EST Temperature 35.7 ??C (96.3 ??F) 09/15/2018 0749 EST Respiratory Rate 16 09/15/2018 0749 EST Oxygen Saturation - - Inhaled Oxygen Concentration - - Weight 90.3 kg (199 lb) 09/15/2018 0749 EST Height 172.7 cm (5' 8) 09/15/2018 0749 EST Body Mass Index 30.26 09/15/2018 0749 EST documented in this encounter Functional Status [...] Other cervical disc degeneration, unspecified cervical region-M50.30[ICD-10-CM] documented in this encounter Patient Instructions Patient InstructionsMillie Nunez RN - 09/15/2018 7:45 EST [facility] [address] [address] Patient Instructions You have had [...] pain, continued numbness or weakness of the arms/legs or changes in your bladder or bowel functions, please call our office immediately. Instructions for follow-up If you have any questions about your block, please call Patient Education Topic: Method: Handout and Verbal Taught to: Patient Barriers: None Outcomes: independent and verbalized understanding Signature: Millie Brumfield RN documented in this encounter Discharge Disposition Disposition Code Departure Means Destination Auto Discharge documented in this encounter Progress Notes Millie Nunez RN - 09/15/2018 3414 EST Contrast Dye Used: 3 mls Wasted: 7 mls Kavon Kuhn - 09/15/2018 6012 EST Procedure: Diagnostic C6-7 cervical epidural under fluoroscopy Date Performed: 09/15/2018 Azure Architect: Kavon Butler M.D. See history and physical from Starr AVILA as well as scan media for clinical details, imaging,indications and medical necessity. No contraindication for the procedure. Written informed consent discussing the risks and alternatives were personally discussed with the patient, signed, and scanned in the chart. History of C6-C7 ACDF performed by Dr Child in 2013 Referring provider: MARGARITA Hylton Time Out: A time-out was completed prior to procedure verifying correct patient, procedure, site, positioning, and special equipment if applicable. Anesthesia: local Contrast Volume: 4 cc under live fluoroscopy. Appropriate epidurogram, no CSF or vascular uptake. Findings: Successful injection of 1cc of a solution containing methylprednisolone (80) under fluoroscopic guidance Complications: None immediate Condition: stable Diagnosis: 1. DDD (degenerative disc disease), cervical Recommendations: 1) activity as tolerated 2) Follow up with MARGARITA Hylton ountShantelle benson RN - 09/15/2018 0745 EST [facility] Rooming Note Does patient have a Hired Hand? yes Is patient NPO? (Solids since midnight & liquids for 4 hrs) NPO since 7:30 PM yesterday Blood Thinners: Is patient on Blood Thinners? nio If yes, taking? If stopped, who authorized stopping? Related comments: Infections: Any recent infections, fever of illnesses? no If on antibiotics, is it 7-10 days past the date of completion of antibiotics? : (for females of child-bearing age) no Is there a chance current ? Do you have any type of implanted device? Other: documented in this encounter Plan of Treatment Upcoming Encounters Date Type Specialty Care Team Description 06/25/2022 Telemedicine Neurology Kj Gloria MD PhD 1 [facility] [address] [place], [place] [address] (Jayjay anaya) 09/06/2022 Procedure visit Pain Medicine Catalino Garrett M D [address] [facility] [address] [place] [address] (Wo rk) 09/21/2022 Office Visit Bariatrics Allen Thompson, ELISABETH [address] [facility], [facility], [address] [place], [place] [address] (Wo rk) documented as of this encounter Visit Diagnoses Diagnosis DDD (degenerative disc disease), cervica l - Primary Degeneration of cervical intervertebral disc documented in this encounter Administered Medications Inactive Administered Medications - up to 3 most recent administrations Medication Order MAR Action Action Date Dose Rate Site methylPREDNISolone ACETATE Given by Other 09/15/2018 8:35 EST 80 mg (DEPO-MEDROL) injection 80 mg 80 mg, neural-axial, NOW X1, 1 dose, On 09/15/18 at 0845, Routine documented in this encounter Care Teams Account Liaison Hospice Relationship Specialty Start Date End Date Juma Herrera MD PCP - General 09/25/12 12/07/18 [address] [place] [address] documented as of this encounter
--- OUTSIDE RECORDS SUMMARY | 2022-06-15 07:53 | XMS_ITS | Encounter Summary ---
:1975 Author Organization [facility] Address [address] [place] [address] Care Team Providers Name Role Phone Juma Herrera MD Primary Care Provider Unavailable Encounter Details Date Type Department Care Team Description 07/14/2018 Hospital Encounter [facility] - Valente Hart, [facility] PAVladimir [address] [place] [address] Social History Tobacco Use Types Packs/Day Years [...] older) documented as of this encounter Discharge Diagnoses Diagnosis M75.101 Unsp rotatr-cuff tear/ruptr of r ight shoulder, not trauma-M75.101[ICD-10-CM] M75.81 Other shoulder lesions, right katlin ulder-M75.81[ICD-10-CM] M19.011 Primary osteoarthritis, right sh oulder-M19.011[ICD-10-CM] M99.51 Intervertebral disc stenosis of n eural canal of cervical region-M99.51[ICD-10-CM] M48.02 Spinal stenosis, cervical region- M48.02[ICD-10-CM] Z98.1 Arthrodesis status-Z98.1[ICD-10-CM ] M54.9 Dorsalgia, unspecified-M54.9[ICD-1 0-CM] documented in this encounter Medications at Time [...] mg Take 2 Tabs by 0 01/0 02/20162022 immediate release tablet mouth every 4 hours Hold for now while taking liquid form Daily Max: 60 mg pediatric multivitamin Take 1 Tab by 0 09/07/2015 05/17/2022 (JUAN CHEW VIT) chewable mouth daily Hold tablet for 2 weeks PROPRANOLOL HCL (PROPRANOLOL Take 120 mg by mouth daily 0 01/28/2019 ORAL)Indications: migraine rizatriptan (MAXALT) 10 mg Take 10 mg by 0 12/18/2021 tablet mouth once as needed. May repeat in 2 hours if needed SUMAtriptan succinate 3 Inject into the 0 02/21/2021 mg/0.5 mL pen injector skin three times a week. documented as of this encounter Discharge Disposition Disposition Code Departure Means Destination Auto Discharge Home documented in this encounter Plan of Treatment Upcoming Encounters Date Type Specialty Care Team Description 06/25/2022 Telemedicine Neurology Kj Gloria MD PhD 1 [facility] [address] [place], [place] [address] (Wo rk) 09/06/2022 Procedure visit Pain Medicine Catalino Garrett M D [address] [facility] [address] [place] [address] (Wo rk) 09/21/2022 Office Visit Bariatrics Allen Thompson PA-C [address] [facility], [address] [place], [place] [address] (Wo rk) documented as of this encounter Visit Diagnoses Not on filedocumented in this encounter Care Teams Sports Statistician Relationship Specialty Start Date End Date Juma Herrera MD PCP - General 09/25/12 12/07/18 [address] [place] [address] documented as of this encounter
--- OUTSIDE RECORDS SUMMARY | 2022-06-15 07:53 | XMS_ITS | Encounter Summary ---
:1975 Author Organization [facility] Address [address] [place] [address] Care Team Providers Name Role Phone Juma Herrera MD Primary Care Provider Unavailable Reason for Visit Reason Comments Obesity Post Op sleeve 3 year ( 016) Encounter Details Date Type Department Care Team Description 09/26/2018 Office Visit [facility] Lopezer-Radha, Morbid obesity ([facility]) (Primary Dx); Bariatric Surgery - ZHOU Luque S/P laparoscopic sleeve gastrectomy; [address] BMI 30.0-30.9,adult [address], [facility] [phone] [place], [address] [place] [address] (Wo rk) Social History Tobacco [...] - Inhaled Oxygen Concentration - - Weight 90.4 kg (199 lb 6.4 oz) 09/26/2018 1026 EST Height 172.7 cm (5' 7.99) 09/26/2018 1026 EST Body Mass Index 30.33 09/26/2018 1026 EST documented in this encounter Functional Status [...] as of this encounter Discharge Diagnoses Diagnosis E66.01 Morbid (severe) obesity due to ex cess calories-E66.01[ICD-10-CM] Z98.84 Bariatric surgery status-Z98.84[I CD-10-CM] Z68.30 Body mass index (BMI) 30.0-30.9, adult-Z68.30[ICD-10-CM] documented in this encounter Discharge Disposition Disposition Code Departure Means Destination Auto Discharge documented in this encounter Progress Notes Allen Thompson PA - 09/26/2018 1000 EST 09/30/2018 Tia Spain is here in follow-up to her laparoscopic sleeve gastrectomy. The weight trend for thepatient is: Weight at initial consult: 147.7 kg (325 lb 9.6 oz), to 80.5 kg (177 lb 6.4 oz) [] at the last post-op visit to today's Weight : 90.4 kg (199 lb 6.4 oz). PROBLEM LIST Patient Active Problem List Diagnosis ??? Lumbar radiculopathy ??? Os trigonum syndrome ??? Tarsal tunnel syndrome of right side ??? Idiopathic peripheral neuropathy ??? Cervicalgia ??? Morbid obesity with BMI of 45.0-49.9, adult ([facility]) SUBJECTIVE: Emesis: No complaints of [...] course without obvious complications and Weight Loss: good but has had some weight regain due to stress eating. PLAN: 1. Return to clinic in 1 year(s). 2. No orders of the defined types were placed in this encounter. 3. Labs followed by PCP Seen and discussed with Demi Chef at this visit. MARGARITA Gomez 09/30/2018 11:12 Aneta Heredia, RD - 09/26/2018 1000 EST Nutrition Post Op Visit: Gastric Sleeve Subjective: Patient returns to clinic for post op nutritional counseling following bariatric surgery~3 years ago. Questionnaire Reviewed: Yes Intolerance Episodes: yes d/t eating too fast Food Intolerances: Cauliflower, sometimes rice Current Exercise: Elliptical 10-20 minutes 3-4x/week Objective: Current Weight: Wt Readings from Last 1 Encounters: 09/26/18 90.4 kg (199 lb 6.4 oz) Current BMI: Body mass index is Body mass index is 30.33 kg/m??.. Total Weight Loss: Total Loss in lbs (Weight from Initial Consult - Today's Weight): (!) 126.2 lbs Weight Change since Last Visit: +22 lbs and lost 79.4 lbs since surgery Supplement Usage: Type Amount MVT Generic one a day x1 B12 unsure Calcium w/Vit D unsure B Complex unsure Vit D unsure Recent Labs: No recent labs, last vitamin D 14.8 (09/26/17) Assessment: Adequate Meal Frequency: No, grazing at night Adequate Meal Composition: No: high in sweets, low in protein Exercise Adequacy: No Nutritional Issues: Wt gain r/t stress eating with high sugar, high fat snacks. Working with therapist. Brainstormed healthier snack options. Some days only dry cereal or toast at breakfast, suggestedideas for adding protein. C/o thirst, needs to increase water intake and limit high sodium foods. Unsure of supplements aside from MVM, to check on vitamin D r/t previously low lab values. Plan: Change intake(protein with each meal, limit nighttime snacking, try healthier options discussed, increase fluids, limit sodium) Increase exercise Supplement Changes (check vitamin D - 2000 units per day) Initiate food logs Education Provided: Weight Control: -1-2 lbs per week Other: follow up 3 months documented in this encounter Plan of Treatment Upcoming Encounters Date Type Specialty Care Team Description 06/25/2022 Telemedicine Neurology Kj Gloria MD PhD 1 [facility] 2 [place], [place] [phone] (Wo rk) 09/06/2022 Procedure visit Pain Medicine Catalino Garrett M D [address] [facility] [address] [place] [address] (Wo rk) 09/21/2022 Office Visit Bariatrics Allen Thompson PA-C [address] [place] [address], [facility], [address] [place], [place] [address] (Wo rk) documented as of this encounter Visit Diagnoses Diagnosis Morbid obesity ([facility]) ([facility]) - Primary Morbid obesity S/P laparoscopic sleeve gastrectomy Bariatric surgery status BMI 30.0-30.9,adult Body Mass Index 30.0-30.9, adult documented in this encounter Historical Medications This list may reflect changes made after this encounter. Medication Sig Dispensed Refills Start Date End Date cortisone acetate Inject 1 Dose into 0 (CORTISONE IM) the muscle every 3 months. added in this encounter Care Teams Sales Account Associate Relationship Specialty Start Date End Date Juma Herrera MD PCP - General 09/25/12 12/07/18 [address] [place] [address] documented as of this encounter
--- OUTSIDE RECORDS SUMMARY | 2022-06-15 07:53 | XMS_ITS | Encounter Summary ---
:1975 Author Organization [facility] Address [address] [place] [address] Care Team Providers Name Role Phone Juma Herrera MD Unavailable Unavailable Juma Herrera MD Primary Care Provider Unavailable Reason for Referral Prior Authorization (Routine) - Specialty Report Received Specialty Diagnoses / Procedures Referred By Contact Refer red To Contact Diagnoses Right shoulder pain, unspecified chronicity Starr Hart [place] [address] Referral ID Status Reason Start Expiration Visits Visits Date Date Requested Authorized [id number] Specialty Specialty 02/20/2019 1 1 Report Services Received Required Question Answer Reason for Request: Right USG AC Injection Comments The purpose of this consult request is t o inform the scheduling staff that a procedure/surgery needs to be prior-auth orized before it is scheduled. Right USG AC Injection Encounter Details Date Type Department Care Team Description 02/18/2019 Orders Only [facility] Starr Hart Rig ht shoulder pain, Sports Medicine PA-C unspecified chronicity Program - [facility] (Primary Dx) [address] [place] [address] Social History Tobacco Use Types [...] Neurology Kj Gloria MD PhD 1 [facility] 2 [place], [place] [address] (Wo héctor) 09/06/2022 Procedure visit Pain Medicine Catalino Garrett M D [address] [facility] [address] [place] [address] (Wo héctor) 09/21/2022 Office Visit Bariatrics Allen Thompson PA-C [address] [facility], [address] [place], [place] [address] (Wo héctor) Scheduled Referrals Name Type Priority Associated Order Schedule Diagnoses AMB CONS/FOLLOW UP Outpatient Referral Routine Right shoulder Ordered: PROCEDURE PRIOR pain, unspecified 019 AUTHORIZATION REQUEST chronicity documented as of this encounter Visit Diagnoses Diagnosis Right shoulder pain, unspecified chronic ity - Primary documented in this encounter Care Teams Flame Cutting Machine Operator Helper Relationship Specialty Start Date End Date Juma Herrera MD PCP - General 01/07/19 03/13/21 Juma Herrera MD 12/08/18 [address] [place] [address] documented as of this encounter
--- OUTSIDE RECORDS SUMMARY | 2022-06-15 07:53 | XMS_ITS | Encounter Summary ---
:1975 Author Organization [facility] Address [address] [place] [address] Care Team Providers Name Role Phone Juma Herrera MD Primary Care Provider Unavailable Reason for Referral Consult (Routine) - Specialty Report Received Specialty Diagnoses / Procedures Referred By Contact Refer red To Contact Pain Medicine Diagnoses Neck pain Pain of right upper extremity Osteoarthritis of cervical spine, unspecified spinal osteoarthritis complication status Starr Hart [facility] PA-C [address] [place], [place] [phone] Phone: Fax: Referral ID Status Reason Start Expiration Visits Visits Date Date Requested Authorized [id number] Specialty Specialty 1 1 Report Services 8 Received Required Question Answer Reason for Request: C5-6 TLESI Has the patient had diagnostic studies? Yes Diagnotic Studies: MRI/CT Have other specialty consultations been completed for this pain compliant? Yes We provide consultative services. We do not assume the role of prescribing Yes physician for this therapy. Please help us understand your area of interest by selecting from the common topics below: Should opioids be initiated on this patient? No Should opioids be continued on this patient? 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 At our last encounter, she underwent a right ultrasound-guided subacromial injection, which provided significant relief of her anteriorshoulder pain, but she is starting to experience some return of symptoms here. The most problemsome region continues to locate her right medial scapula extending into her neck. There is pain extending to the posterior shoulder and her arm feels heavy. She has persistent numbness in her index finger since her previous C6-C7 ACDF by Dr Child in 2013. She completed the MRI of her neck and the MRI of her right shoulder today. Please see previous report for further detailed history. Patient Active Problem List Diagnosis Date Noted ??? Morbid obesity with BMI of 45.0-49.9, adult ([facility]) 03/10/2015 ??? Cervicalgia 09/29/2012 ??? Idiopathic peripheral neuropathy 03/20/2012 ??? Tarsal tunnel syndrome of right side 08/02/2011 ??? 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 Lumbar radiculopathy 10/03/2006 Class: Permanent Past Medical History: Diagnosis Date ??? Anxiety ??? Arthritis ??? Back pain ??? Bipolar disorder ([facility]) ??? Breathing problem ??? Depression ??? Diabetes mellitus ([facility]) ??? Drug abuse ([facility]) ??? Eye problem ??? Generalized headaches ??? Headache(784.0) ??? Heart disease ??? History of substance abuse ??? Hypertension ??? Kidney disease ??? Mental disorder ??? Nervousness(799.21) ??? Numbness ??? Personality disorder ([facility]) ??? Plantar fasciitis ??? PTSD (post-traumatic stress disorder) ??? Tarsal tunnel syndrome Past Surgical History: Procedure Laterality Date ??? BACK SURGERY ??? CHOLECYSTECTOMY ??? LAMINECTOMY L5-S1 Dr. Bowers 1999 ??? SPINAL FUSION L5-S1 Dr. Child 2006 ??? TUBAL LIGATION Current Outpatient Medications: duloxetine (CYMBALTA) 30 mg capsule LORazepam (ATIVAN) 0.5 mg tablet MEDICAL MARIJUANA methylphenidate (RITALIN SR; METADATE ER; METHYLIN ER) 20 mg SR tablet methylphenidate (RITALIN;METHYLIN) 5 mg tablet omeprazole (PRILOSEC) 20 mg capsule oxyCODONE (ROXICODONE) 5 mg immediate release tablet pediatric multivitamin (JUAN CHEW VIT) chewable tablet pregabalin (LYRICA) 50 mg capsule prochlorperazine (COMPAZINE) 10 mg tablet PROPRANOLOL HCL (PROPRANOLOL ORAL) rizatriptan (MAXALT) 10 mg tablet SUMAtriptan succinate 3 mg/0.5 mL pen injector No current facility-administered medications for this visit. Allergies Allergen Reactions ??? Adhesive Other (See Comments) Skin irritation, paper tape ok ??? Bee Sting [Hymenoptera Allergenic Extract] Swelling Fever and vomiting ??? Codeine Hives and Nausea And Vomiting ??? Other - See Comments Nausea And Vomiting Root beer OBJECTIVE: Physical exam was deferred today. MRI of the right shoulder without contrast 07/14/2018, small articular-sided partial supraspinatus tear adjacent to the footprints 4 mm with 5 mm retraction of the torn tendon fiber with moderate tendinosis. Minimal degenerative fraying of the labrum. Moderate to severe AC joint osteoarthrosis. Minimal to mild subacromial subdeltoid bursitis. MRI of the cervical spine without contrast: Anterior spinal fusion, C6-C7. Small disk osteophyte complex C4-C5 and C5-C6. No significant foraminal narrowing. ASSESSMENT: A 43-year-old female with right superior and anterior shoulder pain, likely secondary toAC joint osteoarthrosis, small partial-thickness supraspinatus tear with right-sided cervical and scapular pain, which may be related to degenerative changes at C5-C6. She has no foraminal narrowing onthe right side. Upper extremity dysesthesia may be a permanent nerve injury at this point. We discussed further treatment options including a diagnostic therapeutic C5-6 CUAUHTEMOC, ultrasound-guided AC jointinjection, surgical options. She would like to proceed with the following plan. PLAN: 1. Referral to the pain center for diagnostic therapeutic C5-C6 ACDF. 2. Consider spine referral for continued neck and scapular pain. 3. Return for followup for persistent isolated shoulder pain. I spent a total of 15 minutes in face to face time with this patient today and 15 minutes of that time was spent in counseling and coordination of care as described in the progress note. Dr. Hale was the attending physician available in the clinic today if needed. A consultation was not required. documented in this encounter Plan of Treatment Upcoming Encounters Date Type Specialty Care Team Description 06/25/2022 Telemedicine Neurology Kj Gloria MD PhD 1 [facility], [address] [place], [place] [address] (Wo rk) 09/06/2022 Procedure visit Pain Medicine Catalino Garrett M D [address] [place] [address] (Wo rk) 09/21/2022 Office Visit Bariatrics Allen Thompson PA-C 111 [facility] venue [facility], [facility], [address] [place], [place] [address] (Wo rk) Scheduled Referrals Name Type Priority Associated Diagnoses Order S chedule AMB CONS/FOLLOW UP Outpatient Routine Neck pain Ordered: PAIN INTERVENTIONAL Referral Pain of right upper 1 09/13/2017 extremity Osteoarthritis of cervical spine, unspecified spinal osteoarthritis complication status documented as of this encounter Visit Diagnoses Diagnosis Neck pain - Primary Cervicalgia Pain of right upper extremity Osteoarthritis of cervical spine, unspec ified spinal osteoarthritis complication status documented in this encounter Historical Medications This list may reflect changes made after this encounter. Medication Sig Dispensed Refills Start Date End Date SUMAtriptan succinate 3 Inject into the skin 0 02/21/2021 mg/0.5 mL pen injector three times a week. added in this encounter Care Teams Arterial Embalmer Relationship Specialty Start Date End Date Juma Herrera MD PCP - General 09/25/12 12/07/18 [address] [place] [address] documented as of this encounter
--- OUTSIDE RECORDS SUMMARY | 2022-06-15 07:53 | XMS_ITS | Encounter Summary ---
:1975 Author Organization [facility] Address [address] [place] [address] Care Team Providers Name Role Phone Juma Herrera MD Primary Care Provider Unavailable Reason for Referral Radiology Services (Routine) - New Request Specialty Diagnoses / Procedures Referred By Contact Refer red To Contact Diagnoses Bilateral low back pain, unspecified chronicity, with sciatica presence unspecified Starr Hart PA-C Procedures ENTIRE SPINE 2-[address] [place] [address] Referral ID Status Reason Start Date Expiration Date Visits V isits Requested Authorized [id number] New Request 06/10/2018 1 1 Encounter Details Date Type Department Care Team Description 06/09/2018 Orders Only [facility] Starr Hart Bil atebrittany low back Sports Medicine PA-C pain, unspec ified Program - [facility] chronicity, with [address] sciatica presence So [place], [place] unspecifie d (Primary [address] Dx) [phone] Social History Tobacco Use Types Packs/Day Years [...] Kj Gloria MD PhD 1 [facility] [address] [place], [place] [phone] (Wo rk) 09/06/2022 Procedure visit Pain Medicine Catalino Garrett M D [address] [place] [address] [address] [place] [address] (Wo rk) 09/21/2022 Office Visit Bariatrics Allen Thompson PA-C 111 [facility] venue [facility], [facility], [address] [place], [place] [address] (Wo rk) documented as of this encounter Procedures Procedure Name Priority Date/Time Associated Diagnosis Comme nts ENTIRE SPINE 2-3 Routine 07/14/2018 7:33 EST Bilateral low lanny k Results for this VIEWS pain, unspecified procedure are in chronicity, with the results sciatica presence section. unspecified documented in this encounter Results ENTIRE SPINE 2-3 VIEWS (07/14/2018 7:33 EST) Anatomical Region Laterality Modality Other Specimen Narrative [facility] - 07/15/2018 15:39 EST Plain film entire spine July 14, 2018 Comparison: ??Lumbar spine May 04, 2014 History: 43-year-old female with neck pa in Findings: Frontal and lateral views the entire spine reveal surgical changes of decompression with posterior metallic and osseous fixation at L5-S1. Subcutaneous stimulat or is seen superficial to the sacrum. Leads extend to L5-S1. Surgi reema changes are also seen for C6-C7 ACDF. Mild degenerative change s are noted in the cervical spine. No significant scoliotic curvatur e is seen. Surgical clips are noted in the right upper quadrant. Impression: 1. Spinal stimulator with leads extendin g to the level of L5-S1. 2. C6-C7 ACDF without evidence of hardwa re failure. Procedure Note Jun Collazo MD - 07/15/2018 Plain film entire spine July 14 Comparison: Lumbar spine May 04 14 History: 43-year-old female with neck pa in Findings: Frontal and lateral views the entire spine reveal surgical changes of decompression with posterior metallic and osseous fixation at L5-S1. Subcutaneous stimulat or is seen superficial to the sacrum. Leads extend to L5-S1. Surgi reema changes are also seen for C6-C7 ACDF. Mild degenerative change s are noted in the cervical spine. No significant scoliotic curvatur e is seen. Surgical clips are noted in the right upper quadrant. Impression: 1. Spinal stimulator with leads extendin g to the level of L5-S1. 2. C6-C7 ACDF without evidence of hardwa re failure. Performing Organization Address City/State/ZIP Code Phon e Number [facility] documented in this encounter Visit Diagnoses Diagnosis Bilateral low back pain, unspecified chr onicity, with sciatica presence unspecified - Primary documented in this encounter Care Teams Mingle Operator Relationship Specialty Start Date End Date Juma Herrera MD PCP - General 09/25/12 12/07/18 [address] [place] [address] documented as of this encounter
--- OUTSIDE RECORDS SUMMARY | 2022-06-15 07:53 | XMS_ITS | Encounter Summary ---
:1975 Author Organization [facility] Address [address] [place] [address] Care Team Providers Name Role Phone Alejandra Trevino MD Primary Care Provider Unavailable Encounter Details Date Type Department Care Team Description 2016 Results Only [facility]- Dariela Burdick MD [phone] [address] [place] [address] Social History Tobacco Use Types Packs/Day Years [...] Telemedicine Neurology Kj Gloria MD PhD 1 [facility], [address] [place], [place] [phone] (Wo rk) 09/06/2022 Procedure visit Pain Medicine Catalino Garrett M D [address] [facility] [address] [place] [address] (Wo rk) 09/21/2022 Office Visit Bariatrics Allen Thompson PA-C 111 [facility], [address] [place], [place] [address] (Wo rk) documented as of this encounter Procedures Procedure Name Priority Date/Time Associated Diagnosis Comme nts PAP TEST- RESULT Routine 2016 0:00 EDT Resu lts for this ONLY procedure are i n the results section. documented in this encounter Results PAP TEST- RESULT ONLY (2016 0:00 EDT) Pathology Report: CYTOPATHOLOGY REPORT [facility] Reports generated via electronic interface contain efrain ginal data; SERVICES however they are lacking the format of the original re port. Caution should be taken when reading/interpreting unfo rmatted reports. Name: ? TIA HITCHCOCK ? Accession #: ? [id number] ? : ? 1975 (Age: 41) ??F ?Collect Da te: ? 2016 ? Location: ? [facility] ? Receive Date: ? 016 ? Provider: DARIELA ANAYA MD Copy to: ALEJANDRA TREVINO MD ? Final Report SPECIMEN ADEQUACY ? Satisfactory for Evaluation - transformation zone component present GENERAL CATEGORIZATION ? Negative for Intraepithelial Lesion or Malignan cy ?? Specimen/Source: ??Pap Test, Cervix/Endocervix, ThinPr ep Imaging System with manual evaluation Document reviewed and electronically signed by: ? Kj Alarcon, RENE(ASCP) ? Report ??Date: 06/15/2016 11:13 HPV with Pap Test ? Date Ordered: ? 06/15/2016 ? Status: ?? Signed Out ?Date Complete: ? 06/18/2016 ? By: ??S ystem Interface ? Date Reported: ? 06/18/2016 ? Interpretation RESULT: Negative for HPV. No E6 or E7 mRNA is detected from HPV types 16,18,31,3 3,35, 39,45,51,52,56,58,59,66, and 68 by endodontist media shaina amplification. Comments Document reviewed and electronically signed by: ? System Interface ? Report date: 06/18/2016 By the signature above, the attending physician certif ies that he/she has personally conducted a gross and/or microscopic examin ation of the described specimens and rendered or confirmed the above diagnosi s. End of Report Specimen Performing Organization Address City/State/ZIP Code Phon e Number [facility] [address] [place] [address] SERVICES documented in this encounter Visit Diagnoses Not on filedocumented in this encounter Care Teams Ion Exchange Operator Relationship Specialty Start Date End Date Alejandra Trevino MD PCP - General 09/25/12 12/07/18 [address] [place] [address] documented as of this encounter
--- OUTSIDE RECORDS SUMMARY | 2022-06-15 07:53 | XMS_ITS | Encounter Summary ---
:1975 Author Organization [facility] Address [address] [place] [address] Care Team Providers Name Role Phone Juma Herrera MD Primary Care Provider Unavailable Reason for Visit Reason Onset Date Comments Results 09/21/2016 Encounter Details Date Type Department Care Team Description 09/21/2016 Orders Only [facility] Mary Rosales RN Morbid obesity, unspecified obesity type ([facility]); Bariatric Surgery - S/P lapa roscopic sleeve gastrectomy [address] [id number] Social History Tobacco Use Types Packs/Day Years [...] Neurology Kj Gloria MD PhD 1 [facility], Level 2 [place], [place] [phone] (Wo rk) 09/06/2022 Procedure visit Pain Medicine Catalino Garrett M D [address] [facility] [address] [place] [address] (Wo rk) 09/21/2022 Office Visit Bariatrics Allen Thompson PA-C [address] [facility], [facility], [address] 5 [place], [place] [address] (Wo rk) documented as of this encounter Procedures Procedure Name Priority Date/Time Associated Diagnosis Comme nts THIAMIN (VITAMIN B1), Routine 09/17/2016 Morbid obesity, Res ults for this WB unspecified obesity procedur e are in the type ([facility]) results section. S/P laparoscopic sleeve gastrectomy VITAMIN D (25,[place]) Routine 09/17/2016 Morbid obesity, Results for this unspecified obesity procedur e are in the type ([facility]) results section. S/P laparoscopic sleeve gastrectomy PTH INTACT Routine 09/17/2016 Morbid obesity, Results for this unspecified obesity procedur e are in the type ([facility]) results section. S/P laparoscopic sleeve gastrectomy COMPLETE BLOOD COUNT Routine 09/17/2016 Morbid obesity, Resu lts for this unspecified obesity procedur e are in the type ([facility]) results section. S/P laparoscopic sleeve gastrectomy IRON Routine 09/17/2016 Morbid obesity, Results for this unspecified obesity procedur e are in the type ([facility]) results section. S/P laparoscopic sleeve gastrectomy FERRITIN Routine 09/17/2016 Morbid obesity, Results for this unspecified obesity procedur e are in the type ([facility]) results section. S/P laparoscopic sleeve gastrectomy VITAMIN B12 Routine 09/17/2016 Morbid obesity, Results for this unspecified obesity procedur e are in the type ([facility]) results section. S/P laparoscopic sleeve gastrectomy CREATININE Routine 09/17/2016 Morbid obesity, Results for this unspecified obesity procedur e are in the type ([facility]) results section. S/P laparoscopic sleeve gastrectomy CALCIUM Routine 09/17/2016 Morbid obesity, Results for this unspecified obesity procedur e are in the type ([facility]) results section. S/P laparoscopic sleeve gastrectomy documented in this encounter Results CALCIUM (09/17/2016) Pathologist Sig nature Calcium, External 8.6 [facility] Calculated Calcium, [facility] Specimen Blood specimen (specimen) Performing Organization Address [facility] Phon e Number [facility] CREATININE (09/17/2016) Pathologist Sig nature Creatinine, External 0.74 [facility] GFR, Calculated, [facility] Specimen Blood specimen (specimen) Performing Organization Address [facility] Phon e Number [facility] FERRITIN (09/17/2016) Pathologist Sig nature Ferritin, External 10 [facility] Specimen Blood specimen (specimen) Performing Organization Address [facility] Phon e Number [facility] HEMAGRAM (09/17/2016) Pathologist Sig nature HCT, External 39.1 [facility] MCH, External 28.8 [facility] MCV, External 88.1 [facility] MCHC, External 32.7 [facility] Hemoglobin, External 12.8 [facility] WBC, External 6.07 [facility] RBC, External 4.44 [facility] PLT, External 342 [facility] RDW-CV, External 14.3 [facility] Specimen Blood specimen (specimen) Performing Organization Address [facility] Phon e Number [facility] IRON (09/17/2016) Pathologist Sig nature Iron, External 100 [facility] Specimen Blood specimen (specimen) Performing Organization Address City/[facility]/ZIP Code Phon e Number [facility] PTH INTACT (09/17/2016) Pathologist Sig nature PTH, External 51 [facility] Specimen Blood specimen (specimen) Performing Organization Address City/[facility]/ZIP [facility] Phon e Number [facility] THIAMIN (VITAMIN B1), WB (09/17/2016) Pathologist Sig nature Thiamine, External 106 [facility] Comment, External [facility] Specimen Blood specimen (specimen) Performing Organization Address City/[facility]/ZIP [facility] Phon e Number [facility] VITAMIN B12 (09/17/2016) Pathologist Sig nature Vitamin B-12, External 392 [facility] Specimen Blood specimen (specimen) Performing Organization Address [facility]/ZIP [facility] Phon e Number [facility] (ABNORMAL) VITAMIN D (25,[place]) (09/17/2016) Pathologist Sig nature 25OH Vitamin D Tot, 21.9 (A) 30 - 100 [facility] Specimen Blood specimen (specimen) Performing Organization Address City/[facility] Phon e Number [facility] documented in this encounter Visit Diagnoses Diagnosis Morbid obesity, unspecified obesity type (HCC-CMS) (HCC) S/P laparoscopic sleeve gastrectomy Bariatric surgery status documented in this encounter Care Teams Community Health Educator Relationship Specialty Start Date End Date Juma Herrera MD PCP - General 09/25/12 12/07/18 [address] [place] [address] documented as of this encounter
--- OUTSIDE RECORDS SUMMARY | 2022-06-15 07:53 | XMS_ITS | Encounter Summary ---
:1975 Author Organization [facility] Address [address] [place] [address] Care Team Providers Name Role Phone Juma Herrera MD Primary Care Provider Unavailable Reason for Visit Reason Onset Date Comments Appointment Related 06/09/2018 Encounter Details Date Type Department Care Team Description 06/09/2018 Telephone [facility] Starr Hart, Byron ointment Related Sports Medicine Program ELISABETH Guillen [place], [place] [address] Social History Tobacco Use [...] Notes Telephone Encounter - Bee Jackson - 06/09/2018 1433 EDT I called zach with the date and time of her MRI Jul 14 check in 7:30 am [facility] follow with Starr Hart Jul 14 at 11:45 Bee Jackson 06/09/2018 14:38 documented in this encounter Plan of Treatment Upcoming Encounters Date Type Specialty Care Team Description 06/25/2022 Telemedicine Neurology Kj Gloria MD PhD 1 [facility] [address] [place], [place] [phone] (Wo rk) 09/06/2022 Procedure visit Pain Medicine Catalino Garrett M D [address] [facility] [address] [place] [address] (Wo rk) 09/21/2022 Office Visit Bariatrics Allen Thompson, PA-C [address] [facility], [address] 5 [place], [place] [address] (Wo rk) documented as of this encounter Visit Diagnoses Not on filedocumented in this encounter Care Teams Boilermaker Apprentice Relationship Specialty Start Date End Date Juma Herrera MD PCP - General 09/25/12 12/07/18 [address] [place] [address] documented as of this encounter
--- OUTSIDE RECORDS SUMMARY | 2022-06-15 07:53 | XMS_ITS | Encounter Summary ---
:1975 Author Organization [facility] Address [address] [place] [address] Care Team Providers Name Role Phone Juma Herrera MD Primary Care Provider Unavailable Reason for Referral Radiology Services (Routine) - New Request Specialty Diagnoses / Procedures Referred By Contact Refer red To Contact Diagnoses Right shoulder pain, unspecified chronicity Starr Hart PA-C Procedures MR EXTREMITY SHOULDER WO CONTRAST [address] [place] [address] Referral ID Status Reason Start Date Expiration Date Visits V isits Requested Authorized [id number] New Request 05/20/2018 1 1 adiology Services (Routine) - New Request Specialty Diagnoses / Procedures Referred By Contact Refer red To Contact Diagnoses Neck pain Starr Hart PA-C Procedures MR CERVICAL SPINE WO CONTRAST [address] [place] [address] Referral ID Status Reason Start Date Expiration Date Visits V isits Requested Authorized [id number] New Request 05/20/2018 1 1 adiology Services (Routine/Next Available) - New Request Specialty Diagnoses / Procedures Referred By Contact Refer red To Contact Diagnoses Right shoulder pain, unspecified chronicity Starr Hart PA-C Procedures MSK US SHOULDER [address] [place] [address] Referral ID Status Reason Start Date Expiration Date Visits V isits Requested Authorized [id number] New Request 05/20/2018 1 1 Encounter Details Date Type Department Care Team Description 05/20/2018 Orders Only [facility] Hart, Starr S, Rig ht shoulder pain, unspecified chronicity (Primary Dx); Sports Medicine PA-C Neck pain Program - [address] [place] [address] Social History Tobacco Use Types [...] PhD 1 [facility], Level 2 [place], [place] [address] (Jayjay anaya) 09/06/2022 Procedure visit Pain Medicine Catalino Garrett M D [address] [facility] [address] [place] [address] (Jayjay anaya) 09/21/2022 Office Visit Bariatrics Allen Thompson PA-C [address] [place] [address] [facility], [facility], [address] [place], [place] [address] (Wo rk) documented as of this encounter Procedures Procedure Name Priority Date/Time Associated Diagnosis Comme nts MR EXTREMITY Routine 07/14/2018 9:35 EST Right shoulder pain, Results for this SHOULDER WO unspecified procedure are i n CONTRAST chronicity the results section. MR CERVICAL SPINE Routine 07/14/2018 9:25 EST Neck pain Res ults for this WO CONTRAST procedure are i n the results section. MSK US SHOULDER Routine 05/20/2018 13:04 Right shoulder pain, Results for this EDT unspecified procedure are i n chronicity the results section. documented in this encounter Results MR EXTREMITY SHOULDER WO CONTRAST (07/14/2018 9:35 EST) Anatomical Region Laterality Modality Other Specimen Narrative [facility] - 07/14/2018 11:17 EST MR EXTREMITY RIGHT SHOULDER WO CONTRAST ??07/14/2018 9:35 AM Clinical History/Comments: M25.511-Pain in right [id number]-[id number]; r ight shoulder pain COMPARISON: Right shoulder radiographs o n May 20, 2018. TECHNIQUE: Routine MRI of the right shou lder utilizing a 12 cm imaging [id number]-[id number]. No intravenous co ntrast administration. FINDINGS Rotator Cuff: Supraspinatus: The supraspinatus tendon shows a small articular sided partial tear just proximal to its footprint on the greater tuberosity. Overall, the articular sided partial tear measures about 4 mm in AP extent and with about 5 mm re traction of the torn tendon fibers (sagittal #7, coronal #14). These abnormalities occur in a background of moderate supraspinatus ten dinosis. No muscle atrophy or fatty infiltration demonstrated. Infraspinatus: The infraspinatus tendon shows moderate tendinosis with no discrete tear visualized. No sig nificant muscle atrophy or fatty infiltration demonstrated. Teres Minor: The teres minor tendon is i ntact. No muscle atrophy or fatty infiltration demonstrated. Subscapularis: The subscapularis tendon shows moderate tendinosis with no discrete tear visualized. No sig nificant muscle atrophy or fatty infiltration demonstrated. Long head biceps tendon: The long head b iceps tendon is intact and appears normally positioned within the b icipital groove. Labrum: There is minimal degenerative fr aying along the chondrolabral junction of the superior l abrum. Cartilage: Minimal glenohumeral joint de generative changes are visualized. Joint Space: No sizable glenohumeral sophia nt effusion demonstrated. Acromioclavicular Joint: ??There is mode rate to severe acromioclavicular joint osteoarthrosis w ithout significant size inferior pointing osteophytes. There is a slight degree of lateral downsloping the anterior acromion which exhibits a straight type I undersurface morphology. Subacromial-Subdeltoid Bursa: There are minimal to mild findings subacromial, subdeltoid bursitis. IMPRESSION: Right Shoulder MRI 1. The supraspinatus tendon shows a 5 mm x 4 mm focal articular sided partial tear just proximal to its footprint on the greater tuberosity, occurring in a background of tendinosis. Please see the above description for details. 2. The infraspinatus tendon shows modera te tendinosis with no discrete tear visualized. 3. The subscapularis tendon shows modera te tendinosis with no discrete tear visualized. 4. Moderate to severe acromioclavicular joint osteoarthrosis. 5. Mild findings of subacromial, subdelt oid bursitis. 6. Slight lateral downsloping of the ant erior acromion, nonspecific though may be associated with subacromia l impingement syndrome, a clinical diagnosis. Please correlate acc ordingly. 7. Additional findings as above. . Procedure Note Isiah Morales MD - 07/14/2018 MR EXTREMITY RIGHT SHOULDER WO CONTRAST 07/14/2018 9:35 AM Clinical History/Comments: M25.511-Pain in right [id number]; r ight shoulder pain COMPARISON: Right shoulder radiographs o n May 20, 2018. TECHNIQUE: [facility] cm imaging [id number]-fn-vcav. No intravenous co ntrast administration. FINDINGS Rotator Cuff: Supraspinatus: The supraspinatus tendon shows a small articular sided partial tear just proximal to its footprint on the greater tuberosity. Overall, the articular sided partial tear measures about 4 mm in AP extent and with about 5 mm re traction of the torn tendon fibers (sagittal #7, coronal #14). These abnormalities occur in a background of moderate supraspinatus ten dinosis. No muscle atrophy or fatty infiltration demonstrated. Infraspinatus: The infraspinatus tendon shows moderate tendinosis with no discrete tear visualized. No sig nificant muscle atrophy or fatty infiltration demonstrated. Teres Minor: The teres minor tendon is i ntact. No muscle atrophy or fatty infiltration demonstrated. Subscapularis: The subscapularis tendon shows moderate tendinosis with no discrete tear visualized. No sig nificant muscle atrophy or fatty infiltration demonstrated. Long head biceps tendon: The long head b iceps tendon is intact and appears normally positioned within the b icipital groove. Labrum: There is minimal degenerative fr aying along the chondrolabral junction of the superior l abrum. Cartilage: Minimal glenohumeral joint de generative changes are visualized. Joint Space: No sizable glenohumeral sophia nt effusion demonstrated. Acromioclavicular Joint: There is modera te to severe acromioclavicular joint osteoarthrosis w ithout significant size inferior pointing osteophytes. There is a slight degree of lateral downsloping the anterior acromion which exhibits a straight type I undersurface morphology. Subacromial-Subdeltoid Bursa: There are minimal to mild findings subacromial, subdeltoid bursitis. IMPRESSION: Right Shoulder MRI 1. The supraspinatus tendon shows a 5 mm x 4 mm focal articular sided partial tear just proximal to its footprint on the greater tuberosity, occurring in a background of tendinosis. Please see the above description for details. 2. The infraspinatus tendon shows modera te tendinosis with no discrete tear visualized. 3. The subscapularis tendon shows modera te tendinosis with no discrete tear visualized. 4. Moderate to severe acromioclavicular joint osteoarthrosis. 5. Mild findings of subacromial, subdelt oid bursitis. 6. Slight lateral downsloping of the ant erior acromion, nonspecific though may be associated with subacromia l impingement syndrome, a clinical diagnosis. Please correlate acc ordingly. 7. Additional findings as above. . Performing Organization Address City/State/ZIP Code Phon e Number [facility] MR CERVICAL SPINE WO CONTRAST (07/14/2018 9:25 EST) Anatomical Region Laterality Modality Other Specimen Narrative [facility] - 07/14/2018 13:55 EST MRI CERVICAL SPINE WITHOUT CONTRAST HISTORY: Right arm pain, prior fusion. TECHNIQUE: MRI of the cervical spine wit hout contrast. COMPARISON: ??Entire spine radiograph on e hour prior and MRI cervical spine 03/28/2012. FINDINGS: There is straightening of cervical lordo sis. There are changes from prior anterior fusion of C6-C7. Vertebra l bodies are normal in height. ??Intervertebral discs are arabella l in height. ??Bone marrow signal is unremarkable. ??No suspicious osseous lesions. The cervical spinal cord demonstrates normal signal i ntensity. The cerebellar tonsils are low-lying, pa rticularly on the left and measuring approximately 5 to 6 mm below the foramen magnum. There is no significant crowding of the foramen m agnum. Incidental note is made of a partially empty sella. C2-C3: No spinal canal or neural foramin al stenosis. There is a minimal left facet arthropathy. C3-C4: ??There is no significant spinal canal or neural foraminal stenosis. There is mild left facet arthr opathy. C4-C5: There is a small disc osteophyte complex which flattens the ventral thecal sac and causes mild narro wing of the spinal canal. There is mild left neural foraminal sten osis due to uncovertebral hypertrophy. C5-C6: There is a small disc osteophyte complex which causes mild spinal canal narrowing. There is no sign ificant neural foraminal stenosis. C6-C7: There appears to be near complete osseous fusion of C6-C7. No spinal canal stenosis. There is mild rig ht neural foraminal stenosis due to uncovertebral hypertrophy. No sig nificant left neural foraminal stenosis. C7-T1: No significant spinal canal steno sis. There is no significant neural foraminal stenosis. The included soft tissues are unremarkab le. IMPRESSION: No evidence of hardware malpositioning o r failure. Discogenic and facet degenerative change s, notable for mild neural foraminal stenosis on the right at C6-C7 left at C4-C5 and mild narrowing of the spinal canal at C4-C5 a nd C5-C6. 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 No cer vical cord syrinx. I have personally reviewed the images an d the above interpretation and agree with the findings. Procedure Note Barak Ramon MD - 07/14/2018 MRI CERVICAL SPINE WITHOUT CONTRAST HISTORY: Right arm pain, prior fusion. TECHNIQUE: MRI of the cervical spine wit hout contrast. COMPARISON: Entire spine radiograph one hour prior and MRI cervical spine 03/28/2012. FINDINGS: There is straightening of cervical lordo sis. There are changes from prior anterior fusion of C6-C7. Vertebra l bodies are normal in height. Intervertebral discs are normal in height. Bone marrow signal is unremarkable. No suspicious os seous lesions. The cervical spinal cord demonstrates normal signal i ntensity. The cerebellar tonsils are low-lying, pa rticularly on the left and measuring approximately 5 to 6 mm below the foramen magnum. There is no significant crowding of the foramen m agnum. Incidental note is made of a partially empty sella. C2-C3: No spinal canal or neural foramin al stenosis. There is a minimal left facet arthropathy. C3-C4: There is no significant spinal ca nal or neural foraminal stenosis. There is mild left facet arthr opathy. C4-C5: There is a small disc osteophyte complex which flattens the ventral thecal sac and causes mild narro wing of the spinal canal. There is mild left neural foraminal sten osis due to uncovertebral hypertrophy. C5-C6: There is a small disc osteophyte complex which causes mild spinal canal narrowing. There is no sign ificant neural foraminal stenosis. C6-C7: There appears to be near complete osseous fusion of C6-C7. No spinal canal stenosis. There is mild rig ht neural foraminal stenosis due to uncovertebral hypertrophy. No sig nificant left neural foraminal stenosis. C7-T1: No significant spinal canal steno sis. There is no significant neural foraminal stenosis. The included soft tissues are unremarkab le. IMPRESSION: No evidence of hardware malpositioning o r failure. Discogenic and facet degenerative change s, notable for mild neural foraminal stenosis on the right at C6-C7 left at C4-C5 and mild narrowing of the spinal canal at C4-C5 a nd C5-C6. 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 No cer vical cord syrinx. I have personally reviewed the images an d the above interpretation and agree with the findings. Performing Organization Address City/State/ZIP Code Phon e Number [facility] MSK US SHOULDER (05/20/2018 13:04 EDT) Anatomical Region Laterality Modality Other Specimen Narrative [facility] - 05/20/2018 13:04 EDT Non Reportable Exam Procedure Note TACK DRILLER, IMAGING - 05/26/2018 Non Reportable Exam Performing Organization Address City/State/ZIP Code Phon e Number [facility] documented in this encounter Visit Diagnoses Diagnosis Right shoulder pain, unspecified chronic ity - Primary Neck pain Cervicalgia documented in this encounter Care Teams Tank Car Inspector Relationship Specialty Start Date End Date Juma Herrera MD PCP - General 09/25/12 12/07/18 [address] [place] [address] documented as of this encounter
--- OUTSIDE RECORDS SUMMARY | 2022-06-15 07:53 | XMS_ITS | Encounter Summary ---
:1975 Author Organization [facility] Address [address] [place] [address] Care Team Providers Name Role Phone Juma Herrera MD Primary Care Provider Unavailable Encounter Details Date Type Department Care Team Description 11/22/2016 Hospital Encounter [facility] - S Unknown, Pro Aris ortiz MD 1 [facility] [phone] [place] [address] (Work) [phone] Social History Tobacco Use Types Packs/Day Years [...] or older) documented as of this encounter Medications at [...] Code Departure Means Destination Home or Self Retirement documented in this encounter Plan of Treatment Upcoming Encounters Date Type Specialty Care Team Description 06/25/2022 Telemedicine Neurology Kj Gloria MD PhD 1 [facility], [address] [place], [place] [phone] (Wo rk) 09/06/2022 Procedure visit Pain Medicine Catalino Garrett M D 62 [facility] [address] [place] [address] (Wo rk) 09/21/2022 Office Visit Bariatrics Allen Thompson, PALizettC 111 [facility], [facility], [address] [place], [place] [address] (Wo rk) documented as of this encounter Visit Diagnoses Not on filedocumented in this encounter Care Teams Stencil Typist Relationship Specialty Start Date End Date Juma Herrera MD PCP - General 09/25/12 12/07/18 [address] [place] [address] documented as of this encounter
--- OUTSIDE RECORDS SUMMARY | 2022-06-15 07:53 | XMS_ITS | Encounter Summary ---
:1975 Author Organization [facility] Address [address] [place] [address] Care Team Providers Name Role Phone Juma Herrera MD Primary Care Provider Unavailable Reason for Visit Reason Onset Date Comments Other 10/15/2016 asked for pictures o f her before and after surgery. She still has not received them ye t. Encounter Details Date Type Department Care Team Description 10/15/2016 Telephone [facility] Allen Thompson (asked for Bariatric Surgery - A, PA-C pictures of her before [address] and after surgery. She [address] [facility], Main [place] [address] Pav[address], Level 5 them yet.) [phone] [place] [phone] (Wo rk) Social History Tobacco Use Types [...] this encounter Miscellaneous Notes Telephone Encounter - Leidy Stiles - 10/15/2016 1038 EST Corrected patient's email: [email or web address] documented in this encounter Plan of Treatment Upcoming Encounters Date Type Specialty Care Team Description 06/25/2022 Telemedicine Neurology Kj Gloria MD PhD 1 [facility] Level [address] [place], [place] [phone] (Wo rk) 09/06/2022 Procedure visit Pain Medicine Catalino Garrett M D 62 [facility] [address] [place] [address] (Wo rk) 09/21/2022 Office Visit Bariatrics Allen Thompson PA-C 111 [facility], [address] [place] [address] (Wo rk) documented as of this encounter Visit Diagnoses Not on filedocumented in this encounter Care Teams Cash Reconciliation Specialist Relationship Specialty Start Date End Date Juma Herrera MD PCP - General 09/25/12 12/07/18 [address] [place] [address] documented as of this encounter
--- OUTSIDE RECORDS SUMMARY | 2022-06-15 07:53 | XMS_ITS | Encounter Summary ---
:1975 Author Organization [facility] Address [address] [place] [address] Care Team Providers Name Role Phone Juma Herrera MD Primary Care Provider Unavailable Encounter Details Date Type Department Care Team Description 10/08/2017 Documentation Visit [facility] Mary Rosales RN Bariatric Surgery - [address] [phone] Social History Tobacco Use Types Packs/Day Years [...] documented as of this encounter Progress Notes Mary Rosales, RN - 10/08/2017 7736 EST Documentation only. Electronically signed by Mary Rosales RN CBN documented in this encounter Plan of Treatment Upcoming Encounters Date Type Specialty Care Team Description 06/25/2022 Telemedicine Neurology Kj Gloria MD PhD 1 [facility] 2 [place], [place] [phone] (Wo rk) 09/06/2022 Procedure visit Pain Medicine Catalino Garrtet M D 62 [facility] [address] [place] [address] (Wo rk) 09/21/2022 Office Visit Bariatrics Allen Thompson PA-C 111 [facility], [facility], Level [address] [place], [place] [address] (Wo rk) documented as of this encounter Procedures Procedure Name Priority Date/Time Associated Diagnosis Comme nts VITAMIN D (25,OH) Routine 09/26/2017 Results fo r this procedure are in the resu lts section. IRON Routine 09/26/2017 Results for thi s procedure are in the resu lts section. FERRITIN Routine 09/26/2017 Results for thi s procedure are in the resu lts section. documented in this encounter Results (ABNORMAL) VITAMIN D (25,OH) (09/26/2017) Pathologist Sig nature 25OH Vitamin D Tot, 14.8 (A) 30 - 100 [facility] Specimen Blood specimen (specimen) Performing Organization Address City/[facility]/ZIP Code Phon e Number [facility] IRON (09/26/2017) Pathologist Sig nature Iron, External 93 [facility] Specimen Blood specimen (specimen) Performing Organization Address City/[facility]/ZIP Code Phon e Number [facility] FERRITIN (09/26/2017) Pathologist Sig nature Ferritin, External 8 [facility] Specimen Blood specimen (specimen) Performing Organization Address City/State/ZIP Code Phon e Number [facility] documented in this encounter Visit Diagnoses Not on filedocumented in this encounter Care Teams Bus Starter Relationship Specialty Start Date End Date Juma Herrera MD PCP - General 09/25/12 12/07/18 [address] [place] [address] documented as of this encounter
--- OUTSIDE RECORDS SUMMARY | 2022-06-15 07:53 | XMS_ITS | Encounter Summary ---
:1975 Author Organization [facility] Address [address] [place] [address] Care Team Providers Name Role Phone Juma Herrera MD Primary Care Provider Unavailable Reason for Visit Reason Comments Obesity post op sleeve (09/05/15) Encounter Details Date Type Department Care Team Description 09/27/2017 Office Visit [facility] Jay, S/P la paroscopic Bariatric Surgery - ZHOU Luque sleeve gastrectomy [address] (Primary Dx) [address] [phone] [facility] [address] [place] [address] (Wo rk) Social History Tobacco [...] - Inhaled Oxygen Concentration - - Weight 80.5 kg (177 lb 6.4 oz) 09/27/2017 1000 EST Height 172.7 cm (5' 7.99) 09/27/2017 1000 EST Body Mass Index 26.98 09/27/2017 1000 EST documented in this encounter Functional Status [...] as of this encounter Discharge Diagnoses Diagnosis Z09 Encntr for f/u exam aft trtmt for co nd oth than malig neoplm-Z09[ICD-10-CM] Z98.84 Bariatric surgery status-Z98.84[I CD-10-CM] documented in this encounter Discharge Disposition Disposition Code Departure Means Destination Auto Discharge documented in this encounter Progress Notes Sarah Liz, RD - 09/27/2017 1000 EST Nutrition Post Op Visit: Gastric Sleeve Subjective: Patient returns to clinic for post op nutritional counseling following bariatric surgery~2yrs ago. Questionnaire Reviewed: Yes Intolerance Episodes: Yes; has dumping-like symptoms following junk food has <1-2x/wk, has vomiting if eats too much or too fast-rare Food Intolerances: Sweets, sausage, and milk (only plain, other dairy okay and chocolate milk okay per pt) Current Exercise: Walks ~30min 3-5x/wk if weather allows; is active at work at [employer] and moving for 6 hours-usually works ~2 days/wk Objective: Current Weight: Wt Readings from Last 1 Encounters: 09/27/17 80.5 kg (177 lb 6.4 oz) Current BMI: Body mass index is Body mass index is 26.98 kg/(m^2).. Total Weight Loss: Total Loss in lbs (Weight from Initial Consult - Today's Weight): (!) 148.2 lbs Weight Change since Last Visit: -0.2lbs and lost 101.4lbs since surgery Supplement Usage: Type Amount MVT One-A-Day x1/d B12 500mcg x1/d Calcium w/Vit D 600mg x2/d B Complex 1x/d Vit D Was unsure if taking this-was recommended to add 1000IU/d at last visit Recent Labs: No labs currently-had done in [facility] yesterday and they will fax them Assessment: Adequate Meal Frequency: Yes Adequate Meal Composition: Yes Exercise Adequacy: Yes Nutritional Issues: Pt quit smoking 3 weeks ago. States she had been snacking on junk and saw ~7lb wt gain. Pt reports she has maintained wt between 160- 170lbs for over the last yr. Pt states over last 2 weeks wt has been between 175-177lbs. Pt noticed wt gain after quitting and has since changed snacks from junk food to vegetables and dehydrated vegetables. Cut down on her coffee (has with heavy creamer) from >3 cups/d to <2 cups per day and started drinking green tea. Pt limited in exercise currently d/t weather but plans to increase as weather improves/gets warmer. Pt has some intolerance issues but she knows what triggers them and how to avoid them. No new labs currently. Discussed pt's previous yr's low Vit D and encouraged her to make sure she is taking Vit D 1000IU/d. Pt asked for list of post-surgery supplements which I provided and reviewed. Plan: Continue current diet and exercise Supplement Changes (verify taking Vit D3 1000IU/d) Initiate food logs if wt gain continues Education Provided: Other : Multivitamin/minerals post-bariatric surgery Allen Thompson PA - 09/27/2017 1000 EST 09/27/2017 Tia Spain is here in follow-up to her laparoscopic sleeve gastrectomy. The weight trend for thepatient is: Weight at initial consult: 147.7 kg (325 lb 9.6 oz), to 80.6 kg (177 lb 9.6 oz) [09/28/2016] at the last post-op visit to today's Weight : 80.5 kg (177 lb 6.4 oz). PROBLEM LIST Patient Active Problem List Diagnosis ??? Lumbar radiculopathy ??? Os trigonum syndrome ??? Tarsal tunnel syndrome of right side ??? Idiopathic peripheral neuropathy ??? Cervicalgia ??? Morbid obesity with BMI of 45.0-49.9, adult ([facility]) SUBJECTIVE: Emesis: No complaints of emesis Nausea: No complaints of nausea Increased Volume Tolerance: no Abdominal Pain: burning Epigastric pain a few times progressively worse over last few months Lightheadedness: No complaints of lightheadedness Bowel Function: Alternates between diarrhea and constipation Pannus: No problems related to pannus reported OBJECTIVE: General Appearance: healthy appearing, alert and in no apparent distress Abdomen: Incisions well-healed Extremities: Normal Skin: Excess abdominal skin with no rashes ASSESSMENT: Doing well, Expected course without obvious complications and Weight Loss: Good. A few labs should be coming soon, drawn yesterday at [facility] PLAN: 1. Return to clinic in 1 year(s). 2. No orders of the defined types were placed in this encounter. 3. Seen and discussed with Grain Trimmer at this visit. MARGARITA Gomez 09/27/2017 11:06 documented in this encounter Plan of Treatment Upcoming Encounters Date Type Specialty Care Team Description 06/25/2022 Telemedicine Neurology Kj Gloria MD PhD 1 [facility], [address] [place], [place] [phone] (Jayjay anaya) 09/06/2022 Procedure visit Pain Medicine Catalino Garrett M D 62 [facility] [address] [place] [address] (Jayjay anaya) 09/21/2022 Office Visit Bariatrics Allen Thompson PA-C [address] [place] [address], [facility], [address] [place], [place] [address] (Jayjay anaya) documented as of this encounter Visit Diagnoses Diagnosis S/P laparoscopic sleeve gastrectomy - Pr imary Bariatric surgery status documented in this encounter Discontinued Medications Medication Sig Discontinue Reason Start Date End Date oxyCODONE (ROXICODONE) 5 Take 5-10 mL by Therapy completed 08/19/20 15 09/27/2017 mg/5 mL solution mouth every 4 hours as needed for Pain starting after surgery on 09/05/14 Daily Max: 60 mg acetaminophen (TYLENOL) Take 20.3 mL by Therapy completed 6 09/27/2017 650 mg/20.3 mL solution mouth every 4 hours documented as of this encounter Historical Medications This list may reflect changes made after this encounter. Medication Sig Dispensed Refills Start Date End Date MEDICAL MARIJUANA as needed. 0 added in this encounter Care Teams Supervisor Salvage Relationship Specialty Start Date End Date Juma Herrera MD PCP - General 09/25/12 12/07/18 [address] [place] [address] documented as of this encounter
--- OUTSIDE RECORDS SUMMARY | 2022-06-15 07:53 | XMS_ITS | Encounter Summary ---
:1975 Author Organization [facility] Address [address] [place] [address] Care Team Providers Name Role Phone Juma Herrera MD Primary Care Provider Unavailable Reason for Visit Reason Onset Date Comments Paperwork request 05/11/2016 Needs all her appioi ntments and medicaitons sent to her for her disability shree lopez, Encounter Details Date Type Department Care Team Description 05/11/2016 Telephone [facility] Master Ugarte rwork request (Needs Bariatric Surgery - MD Marques all her appiointments [place] [address] [facility] and medicaitons sent to [address] [facility] [place] [address] [place] claim, ) [phone] Social History Tobacco Use Types Packs/Day [...] this encounter Miscellaneous Notes Telephone Encounter - Mary Rosales, RN - 05/14/2016 0845 EDT LMOVM stating that patient needs to call HIM for records request. If the [facility] sends us information regarding her disability claim asking for medical records, then we would send it directly to them. Electronically signed by Mary Rosales RN CBN documented in this encounter Plan of Treatment Upcoming Encounters Date Type Specialty Care Team Description 06/25/2022 Telemedicine Neurology Kj Gloria MD PhD 1 [facility], [address] [place], [place] [phone] (Jayjay anaya) 09/06/2022 Procedure visit Pain Medicine Catalino Garrett M D [address] [facility] [address] [place] [address] (Jayjay anaya) 09/21/2022 Office Visit Bariatrics Allen Thompson PA-C [address] [facility], [address] [place], [place] [address] (Jayjay anaya) documented as of this encounter Visit Diagnoses Not on filedocumented in this encounter Care Teams Orthopedic Mechanic Relationship Specialty Start Date End Date Juma Herrera MD PCP - General 09/25/12 12/07/18 [address] [place] [address] documented as of this encounter
--- OUTSIDE RECORDS SUMMARY | 2022-06-15 07:53 | XMS_ITS | Encounter Summary ---
:1975 Author Organization [facility] Address [address] [place] [address] Care Team Providers Name Role Phone Juma Herrera MD Primary Care Provider Unavailable Reason for Referral Laboratory Services (Routine) - Closed Specialty Diagnoses / Procedures Referred By Contact Refer red To Contact Diagnoses Morbid obesity, unspecified obesity type (HCC-CMS) (HCC) S/P laparoscopic sleeve gastrectomy Allen Thompson, Procedures VITAMIN D (25,OH) PA-C [address] [place] [phone] Referral ID Status Reason Start Date Expiration Date Visits Requ ested Visits Authorized [id number] Closed 08/26/2016 1 1 Laboratory Services (Routine) - Closed Specialty Diagnoses / Procedures Referred By Contact Refer red To Contact Diagnoses Morbid obesity, unspecified obesity type (HCC-CMS) (HCC) S/P laparoscopic sleeve gastrectomy Allen Thompson, Procedures THIAMIN (VITAMIN B1), WB PA-C [address] [place] [phone] Referral ID Status Reason Start Date Expiration Date Visits Requ ested Visits Authorized [id number] Closed 08/26/2016 1 1 Laboratory Services (Routine) - Closed Specialty Diagnoses / Procedures Referred By Contact Refer red To Contact Diagnoses Morbid obesity, unspecified obesity type (HCC-CMS) (HCC) S/P laparoscopic sleeve gastrectomy Allen Thompson, Procedures PTH INTACT PA-C [address] [place] [phone] Referral ID Status Reason Start Date Expiration Date Visits Requ ested Visits Authorized [id number] Closed 08/26/2016 1 1 Laboratory Services (Routine) - Closed Specialty Diagnoses / Procedures Referred By Contact Refer red To Contact Diagnoses Morbid obesity, unspecified obesity type (HCC-CMS) (HCC) S/P laparoscopic sleeve gastrectomy Allen Thompson, Procedures IRON PA-C [address] [place], [place] [phone] Referral ID Status Reason Start Date Expiration Date Visits Requ ested Visits Authorized [id number] Closed 08/26/2016 1 1 Laboratory Services (Routine) - Closed Specialty Diagnoses / Procedures Referred By Contact Refer red To Contact Diagnoses Morbid obesity, unspecified obesity type (HCC-CMS) (HCC) S/P laparoscopic sleeve gastrectomy Allen Thompson, Procedures FERRITIN PA-C [address] [place], [place] [phone] Referral ID Status Reason Start Date Expiration Date Visits Requ ested Visits Authorized [id number] Closed 08/26/2016 1 1 Laboratory Services (Routine) - Closed Specialty Diagnoses / Procedures Referred By Contact Refer red To Contact Diagnoses Morbid obesity, unspecified obesity type (HCC-CMS) (HCC) S/P laparoscopic sleeve gastrectomy Allen Thompson, Procedures CREATININE PA-C [address] [place] [address] Referral ID Status Reason Start Date Expiration Date Visits Requ ested Visits Authorized [id number] Closed 08/26/2016 1 1 Laboratory Services (Routine) - Closed Specialty Diagnoses / Procedures Referred By Contact Refer red To Contact Diagnoses Morbid obesity, unspecified obesity type (HCC-CMS) (HCC) S/P laparoscopic sleeve gastrectomy Allen Thompson, Procedures HEMAGRAM PA-C [address] [place] [address] Referral ID Status Reason Start Date Expiration Date Visits Requ ested Visits Authorized [id number] Closed 08/26/2016 1 1 Laboratory Services (Routine) - Closed Specialty Diagnoses / Procedures Referred By Contact Refer red To Contact Diagnoses Morbid obesity, unspecified obesity type (HCC-CMS) (HCC) S/P laparoscopic sleeve gastrectomy Allen Thompson, Procedures CALCIUM PA-C [address] [place], [place] [phone] Referral ID Status Reason Start Date Expiration Date Visits Requ ested Visits Authorized [id number] Closed 08/26/2016 1 1 Laboratory Services (Routine) - Closed Specialty Diagnoses / Procedures Referred By Contact Refer red To Contact Diagnoses Morbid obesity, unspecified obesity type (HCC-CMS) (HCC) S/P laparoscopic sleeve gastrectomy Allen Thompson, Procedures VITAMIN B12 PA-C [address] [place] [phone] Referral ID Status Reason Start Date Expiration Date Visits Requ ested Visits Authorized [id number] Closed 08/26/2016 1 1 Reason for Visit Reason Comments Obesity POST OP SLEEVE 6 MONTHS (09/05) Encounter Details Date Type Department Care Team Description 03/09/2016 Office Visit [facility] Jay, Morbid obesity, unspecified obesity type ([facility]-HCC) (Primary Dx); Bariatric Surgery - ZHOU Luque S/P laparoscopic sleeve gastrectomy; [address] Vitamin D deficiency [address] [place], [place] [phone] [place] [address] [phone] (Wo rk) Social History Tobacco Use [...] - Inhaled Oxygen Concentration - - Weight 92.7 kg (204 lb 6.4 oz) 03/09/2016904 EDT Height 172.7 cm (5' 7.99) 03/09/2016904 EDT Body Mass Index 31.09 03/09/2016 09 EDT documented in this encounter Functional Status [...] encounter Progress Notes Lux Dumont, RD - 03/09/2016 0943 EDT Nutrition Post Op Visit: Gastric Sleeve Subjective: Patient returns to clinic for post op nutritional counseling following bariatric surgery~ 6 months ago. Questionnaire Reviewed: Yes Intolerance Episodes: yes dumping with sweets Food Intolerances: Sweets, avoids rice Current Exercise:[employer] exercise DVD 30 min X 2 per week and active at work Objective: Current Weight: Wt Readings from Last 1 Encounters: 03/09/16 92.715 kg (204 lb 6.4 oz) Current BMI: Body mass index is Body mass index is 31.09 kg/(m^2).. Total Weight Loss: Total Loss in lbs (Weight from Initial Consult - Today's Weight): (!) 121.2 lbs Weight Change since Last Visit:-20.6 lbs and lost 75.4 lbs since surgery Supplement Usage: Type Amount MVT Gummy Flinstones B12 500 mcg Calcium w/Vit D 600 mg X2 B Complex X1 Recent Labs:No new labs; last vitamin D low Assessment: Adequate Meal Frequency: Yes Adequate Meal Composition: Yes Exercise Adequacy: Yes Nutritional Issues: Tia has been eating regular meals and takes a [employer] protein drink(20 g protein each) if she skips a meal. Her fluid and protein intake is excellent at this time. Worried about her chronic migraines and wants to know if extra B-complex will help. She drinks vitamin water and hence was advised to try increasing MVM to 2 pills a day. Her current MVM has no iron and thiamine . Plan: Continue current diet and exercise Change intake:no liquids with meals; do not skip meals; continue protein shakes if unable to eat a meal Supplement Changes:Change MVM to Women's One a day; continue Ca/Vit D,B12 and B-complex; increase MVM to 2 pills a day Initiate food logs Education Provided: Weight Control:1-2 lbs per week Other:follow-up labs Allen Thompson PA - 03/09/2016 0950 EDT 03/09/2016 Tia Spain is here in follow-up to her laparoscopic sleeve gastrectomy. The weight trend for thepatient is: Weight at initial consult: 147.691 kg (325 lb 9.6 oz), to 102.059 kg (225 lb) [12/09/2015] at the last post-op visit to today's Weight : 92.715 kg (204 lb 6.4 oz). PROBLEM LIST Patient Active Problem List Diagnosis ??? Lumbar radiculopathy ??? Os trigonum syndrome ??? Tarsal tunnel syndrome of right side ??? Idiopathic peripheral neuropathy ??? Cervicalgia ??? Morbid obesity with BMI of 45.0-49.9, adult SUBJECTIVE: Emesis: occasional complaints of emesis with speed of eating Nausea: No complaints of nausea Increased Volume Tolerance: no Abdominal Pain: No complaints of abdominal pain Lightheadedness: Describing some dumping type symptoms with sweets Bowel Function: Normal Pannus: No problems related to pannus reported OBJECTIVE: General Appearance: healthy appearing, alert and in no apparent distress Abdomen: Incision well-healed Extremities: Normal Skin: Normal ASSESSMENT: Doing well, Expected course without obvious complications and Weight Loss: Good. Feeling low energy PLAN: 1. Return to clinic in 6 month(s). 2. Orders Placed This Encounter Procedures ??? Vitamin B12 Standing Status: Future Number of Occurrences: Standing Expiration Date: 03/09/2017 ??? Calcium Standing Status: Future Number of Occurrences: Standing Expiration Date: 03/09/2017 ??? Hemagram Standing Status: Future Number of Occurrences: Standing Expiration Date: 03/09/2017 ??? Creatinine Standing Status: Future Number of Occurrences: Standing Expiration Date: 03/09/2017 ??? Ferritin Standing Status: Future Number of Occurrences: Standing Expiration Date: 03/09/2017 ??? Iron Standing Status: Future Number of Occurrences: Standing Expiration Date: 03/09/2017 ??? PTH Intact Standing Status: Future Number of Occurrences: Standing Expiration Date: 03/09/2017 ??? Thiamin (Vit B1), WB Standing Status: Future Number of Occurrences: Standing Expiration Date: 03/09/2017 Scheduling Instructions: Blood Test and Fasting How long do I have to fast for before a blood test? - If a fasting blood test is ordered, you should not have anything to eat or drink (except water) for at least eight hours. This usually involves an overnight fast. - You should continue to take any prescription medications, unless your physician directed you not to take them. - Smoking and exercise may affect your results as well, so you should refrain from these activitiesas much as possible during this time. If you have any concerns about refraining from food for this period of time, talk to your physician. Order Specific Question: The lab recommends a fasting sample. Should phlebotomy collect the sample if the patient is NOT fasting? Answer: Yes ??? Vitamin D (25,OH) Standing Status: Future Number of Occurrences: Standing Expiration Date: 03/09/2017 ??? Ferritin Standing Status: Future Number of Occurrences: Standing Expiration Date: 03/09/2017 ??? Iron Standing Status: Future Number of Occurrences: Standing Expiration Date: 03/09/2017 ??? Vitamin D (25,OH) Standing Status: Future Number of Occurrences: Standing Expiration Date: 03/09/2017 ??? Thiamin (Vit B1), WB Standing Status: Future Number of Occurrences: Standing Expiration Date: 03/09/2017 Scheduling Instructions: Blood Test and Fasting How long do I have to fast for before a blood test? - If a fasting blood test is ordered, you should not have anything to eat or drink (except water) for at least eight hours. This usually involves an overnight fast. - You should continue to take any prescription medications, unless your physician directed you not to take them. - Smoking and exercise may affect your results as well, so you should refrain from these activitiesas much as possible during this time. If you have any concerns about refraining from food for this period of time, talk to your physician. Order Specific Question: The lab recommends a fasting sample. Should phlebotomy collect the sample if the patient is NOT fasting? Answer: Yes 3. Few labs today and then full set before visit in 6 months Seen and discussed with Distribution Center Administrator at this visit. MARGARITA Gomez 03/09/2016 9:50 documented in this encounter Plan of Treatment Upcoming Encounters Date Type Specialty Care Team Description 06/25/2022 Telemedicine Neurology Kj Gloria MD PhD 1 [facility] Level [address] [place], [place] [phone] (Wo rk) 09/06/2022 Procedure visit Pain Medicine Catalino Garrett M D [address] [facility] [address] [place] [address] (Wo rk) 09/21/2022 Office Visit Bariatrics Allen Thompson PA-C [address] [facility], [facility], [address] [place], [place] [phone] (Wo rk) documented as of this encounter Results (ABNORMAL) VITAMIN D (25,OH) (09/17/2016) Pathologist Sig nature 25OH Vitamin D Tot, 21.9 (A) 30 - 100 [facility] Specimen Blood specimen (specimen) Performing Organization Address City/[facility]/ZIP Code Phon e Number [facility] THIAMIN (VITAMIN B1), WB (09/17/2016) Pathologist Sig nature Thiamine, External 106 [facility] Comment, External [facility] Specimen Blood specimen (specimen) Performing Organization Address City/[facility]/ZIP Code Phon e Number [facility] PTH INTACT (09/17/2016) Pathologist Sig nature PTH, External 51 [facility] Specimen Blood specimen (specimen) Performing Organization Address City/[facility]/ZIP Code Phon e Number [facility] IRON (09/17/2016) Pathologist Sig nature Iron, External 100 [facility] Specimen Blood specimen (specimen) Performing Organization Address City/[facility]/ZIP Code Phon e Number [facility] FERRITIN (09/17/2016) Pathologist Sig nature Ferritin, External 10 [facility] Specimen Blood specimen (specimen) Performing Organization Address City/[facility]/[place]IP [facility] [place] Number [facility] CREATININE (09/17/2016) Pathologist Sig [facility] Creatinine, External 0.74 [facility] GFR, Calculated, [facility] Specimen Blood specimen (specimen) Performing Organization Address City/State/ZIP Code Phon e Number [facility] HEMAGRAM (09/17/2016) Pathologist Sig [facility] HCT, External 39.1 [facility] MCH, External 28.8 [facility] MCV, External 88.1 [facility] MCHC, External 32.7 [facility] Hemoglobin, External 12.8 [facility] WBC, External 6.07 [facility] RBC, External 4.44 [facility] PLT, External 342 [facility] RDW-CV, External 14.3 [facility] Specimen Blood specimen (specimen) Performing Organization Address City/[facility]/ZIP Code Phon e Number [facility] CALCIUM (09/17/2016) Pathologist Sig [facility] Calcium, External 8.6 [facility] Calculated Calcium, [facility] Specimen Blood specimen (specimen) Performing Organization Address City/[facility]/ZIP Code Phon e Number [facility] VITAMIN B12 (09/17/2016) Pathologist Sig nature Vitamin B-12, External 392 [facility] Specimen Blood specimen (specimen) Performing Organization Address City/State/ZIP Code Phon e Number [facility] THIAMIN (VITAMIN B1), WB (03/09/2016 9:54 EDT) Thiamin (Vit B1), 117 70 - 180 [facility] WB Comment: nmol/L [facility] Performed by: [facility] [place] and, [address], [facility] [address], Machine Pecan Picker: Yoly Bhatt, Ph.D. Specimen Blood specimen (specimen) - Blood Performing Organization Address City/[facility]/ZIP Code Phon e Number [facility] [address] [place] [address] SERVICES VITAMIN D (25,OH) (03/09/2016 9:54 EDT) 25OH Vitamin D 31.5 30 - 100 [facility] Tot Comment: ng/ml [facility] Reference Range: SERVICES Deficient = <10 ng/ml Insufficient = 10-30 ng/ml Sufficient = 30-100 ng/ml Toxic = >100 ng/ml Specimen Blood specimen (specimen) - Blood Performing Organization Address City/[facility]/ZIP Code Phon e Number [facility] [address] [place] [address] SERVICES IRON (03/09/2016 9:54 EDT) Pathologist Sig nature Iron 69 37 - 170 ug/dl [facility] SERVICES Specimen Blood specimen (specimen) - Blood Performing Organization Address City/[facility]/ZIP Code Phon e Number [facility] [address] [place] [address] SERVICES FERRITIN (03/09/2016 9:54 EDT) Pathologist Sig nature Ferritin 19 10 - 291 ng/ml [facility] SERVICES Specimen Blood specimen (specimen) - Blood Performing Organization Address [facility]/ZIP [facility] Phon e Number [facility] [address] [place] [address] SERVICES documented in this encounter Visit Diagnoses Diagnosis Morbid obesity, unspecified obesity type ([facility]) ([facility]) - Primary S/P laparoscopic sleeve gastrectomy Bariatric surgery status Vitamin D deficiency Unspecified vitamin D deficiency documented in this encounter Care Teams Supervisor Vacuum Metalizing Relationship Specialty Start Date End Date Juma Herrera MD PCP - General 09/25/12 12/07/18 [address] [place] [address] documented as of this encounter
--- OUTSIDE RECORDS SUMMARY | 2022-06-15 07:53 | XMS_ITS | Encounter Summary ---
:1975 Author Organization [facility] Address [address] [place] [address] Care Team Providers Name Role Phone Juma Herrera MD Unavailable Unavailable Juma Herrera MD Primary Care Provider Unavailable Reason for Referral Radiology Services (Routine) - New Request Specialty Diagnoses / Procedures Referred By Contact Refer red To Contact Diagnoses Neck pain Kj Child MD Procedures CERVICAL SPINE 4 OR MORE VIEWS [address] [place] [phone] Referral ID Status Reason Start Date Expiration Date Visits V isits Requested Authorized [id number] New Request 03/30/2019 1 1 Reason for Visit Reason Onset Date Comments Neck Pain 03/20/2019 Encounter Details Date Type Department Care Team Description 03/20/2019 Orders Only [facility] - Kj Child Neck pain (Primary [facility] MD Fermín Dx) [facility] [address] [place] [address] [place] [phone] Social History Tobacco Use Types Packs/Day [...] [facility] [address] [place], [place] [phone] (Wo rk) 09/06/2022 Procedure visit Pain Medicine Catalino Garrett M D [address] [facility] [address] [place] [address] (Wo rk) 09/21/2022 Office Visit Bariatrics Allen Thompson PA-C [address] [place] [address], [address] [place], [place] [phone] (Wo rk) Scheduled Orders Name Type Priority Associated Diagnoses Order S chedule CERVICAL SPINE 4 OR MORE Imaging Routine Neck pain Ord ered: 03/30/2019 VIEWS documented as of this encounter Visit Diagnoses Diagnosis Neck pain - Primary Cervicalgia documented in this encounter Care Teams Willower Relationship Specialty Start Date End Date Juma Herrera MD PCP - General 01/07/19 03/13/21 Juma Herrera MD 12/08/18 [address] [place] [address] documented as of this encounter
--- OUTSIDE RECORDS SUMMARY | 2022-06-15 07:53 | XMS_ITS | Encounter Summary ---
:1975 Author Organization [facility] Address [address] [place] [address] Care Team Providers Name Role Phone Juma Herrera MD Primary Care Provider Unavailable Reason for Visit Reason Onset Date Comments Other 09/21/2015 Encounter Details Date Type Department Care Team Description 09/21/2015 Telephone [facility] Bariatric Jeremi Ugarte Other Surgery - Yoseph Mohan MD [address] [facility] [address] [place] [address] [place] [phone] (Wo rk) Social History Tobacco Use Types [...] this encounter Miscellaneous Notes Telephone Encounter - Francine Joiner - 09/21/2015 1301 EST Patient called with questions about the protein powder. Please call back at [phone] documented in this encounter Plan of Treatment Upcoming Encounters Date Type Specialty Care Team Description 06/25/2022 Telemedicine Neurology Kj Gloria MD PhD 1 [facility] 2 [place], [place] [phone] (Wo rk) 09/06/2022 Procedure visit Pain Medicine Catalino Garrett M D [address] [facility] [address] [place] [address] (Wo rk) 09/21/2022 Office Visit Bariatrics Allen Thompson PA-C [address] [facility], [facility], [address] [place], [place] [phone] (Wo rk) documented as of this encounter Visit Diagnoses Not on filedocumented in this encounter Care Teams Mission Support Specialist Relationship Specialty Start Date End Date Juma Herrera MD PCP - General 09/25/12 12/07/18 [address] [place] [address] documented as of this encounter
--- OUTSIDE RECORDS SUMMARY | 2022-06-15 07:53 | XMS_ITS | Encounter Summary ---
:1975 Author Organization [facility] Address [address] [place] [address] Care Team Providers Name Role Phone Juma Herrera MD Primary Care Provider Unavailable Reason for Visit Reason Comments Obesity POST OP SLEEVE 1 YEAR ( 6) Encounter Details Date Type Department Care Team Description 09/28/2016 Office Visit [facility] Chutter[place], Morbid obesity, unspecified obesity type ([facility]) (Primary Dx); Bariatric Surgery - ZHOU Luque S/P laparoscopic sleeve gastrectomy; [address] Vitamin D deficiency; [address] Other specified intestinal malabsorption [place], [place] [id number] [place] [address] [place], [address] [place] [address] (Wo rk) Social History Tobacco [...] - Inhaled Oxygen Concentration - - Weight 80.6 kg (177 lb 9.6 oz) 09/28/2016 1051 EST Height 172.7 cm (5' 7.99) 09/28/2016 1051 EST Body Mass Index 27.01 09/28/2016 1051 EST documented in this encounter Functional Status [...] cess calories-E66.01[ICD-10-CM] Z98.84 Bariatric surgery status-Z98.84[I CD-10-CM] E55.9 Vitamin D deficiency, unspecified- E55.9[ICD-10-CM] K90.89 Other intestinal malabsorption-K9 0.89[ICD-10-CM] documented in this encounter Discharge Disposition Disposition Code Departure Means Destination Auto Discharge documented in this encounter Progress Notes Tracy Mendez - 09/28/2016 1030 EST Images from the original note were not included. Apolonia Tarango - 09/28/2016 1030 EST Nutrition Post Op Visit: Gastric Sleeve Subjective: Patient returns to clinic for post op nutritional counseling following bariatric surgeryapprox 1 year ago. 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 Total Weight Loss: Total Loss in lbs (Weight from Initial Consult - Today's Weight): (!) 148 lbs Weight Change since Last Visit: -26.8 lbs. Weight Change since Surgery: -101.2 lbs. Supplement Usage: Type Amount MVT Womens 1-A-Day complete pill 2x/day B12 500mcg daily Calcium w/Vit D 600mg 2x/day B Complex daily Recent Labs: 09/17/16 WNL, Abnormal- Vitamin D25OH 21.9 (ferritin borderline low at 10.0, Fe wnl) Assessment: Adequate Meal Frequency: Yes Adequate Meal Composition: No: often lacks protein at breakfast Exercise Adequacy: borderline Nutritional Issues: reports she is tolerating well-balanced diet with primarily lean protein, veggies and fruit at most meals plus cheese stick for b/w meal snacks 2x/day. She is drinking liquids separate from solids, consuming at least 60oz Vitamin Water Zero and lightly sweetened green tea. Advisedshe include protein source with breakfast daily. She will make sure to add 1 egg or Tbsp peanut butter to toast or have Protein Shake for breakfast. Advised she maintain at least 150 minutes of weekly exercise to maintain healthy weight. Plan: Change intake- include protein with all meals Increase exercise to 150 minutes/week Supplement Changes- add 1000units Vitamin D3 daily Initiate food logs for goal at least 70gm protein intake daily Education Provided: None LYChkathia-Allen Garcia PA - 09/28/2016 1030 EST 09/28/2016 Tia Eileen Spain is here in follow-up to her laparoscopic sleeve gastrectomy. The weight trend for thepatient is: Weight at initial consult: 147.7 kg (325 lb 9.6 oz), to 92.7 kg (204 lb 6.4 oz) [03/09/2016] at the last post-op visit to today's Weight : 80.6 kg (177 lb 9.6 oz). PROBLEM LIST Patient Active Problem List Diagnosis ??? Lumbar radiculopathy ??? Os trigonum syndrome ??? Tarsal tunnel syndrome of right side ??? Idiopathic peripheral neuropathy ??? Cervicalgia ??? Morbid obesity with BMI of 45.0-49.9, adult SUBJECTIVE: Emesis: No complaints of emesis Nausea: No complaints of nausea Increased Volume Tolerance: no Abdominal Pain: No complaints of abdominal pain Lightheadedness: Orthostasis occasionally, drinks plenty of water Bowel Function: Alternates between constipation and diarrhea Pannus: No problems related to pannus reported OBJECTIVE: General Appearance: healthy appearing, alert and in no apparent distress Abdomen: Incision well-healed Extremities: Normal Skin: Some excess skin but no rash ASSESSMENT: Doing well, Expected course without obvious complications and Weight Loss: Good. With fatigue still - iron and ferritin both look good and no anemia, TSH was normal 04/16 but could potentially have thyroid issues now. Vitamin D deficiency, will add 1000 units D3 to MVI and Ca with D PLAN: 1. Return to clinic in 1 year(s). 2. Orders Placed This Encounter Procedures ??? Ferritin Standing Status: Future Standing Expiration Date: 09/28/2017 ??? Iron Standing Status: Future Standing Expiration Date: 09/28/2017 ??? Vitamin D (25,OH) Standing Status: Future Standing Expiration Date: 09/28/2017 3. Labs before next visit. Seen and discussed with Social Work Therapist at this visit. MARGARITA Gomez 09/28/2016 11:41 documented in this encounter Plan of Treatment Upcoming Encounters Date Type Specialty Care Team Description 06/25/2022 Telemedicine Neurology Kj Gloria MD PhD [address] [facility], [address] [place], [place] [address] (Jayjay anaya) 09/06/2022 Procedure visit Pain Medicine Catalino Garrett M D [address] [facility] [address] [place] [address] (Jayjay anaya) 09/21/2022 Office Visit Bariatrics Allen Thompson PA-C [address] [facility], [facility], [address] [place] [address] (Wo rk) documented as of this encounter Visit Diagnoses Diagnosis Morbid obesity, unspecified obesity type (HCC-CMS) (HCC) - Primary S/P laparoscopic sleeve gastrectomy Bariatric surgery status Vitamin D deficiency Unspecified vitamin D deficiency Other specified intestinal malabsorption documented in this encounter Discontinued Medications Medication Sig Discontinue Reason Start Date End Date oxyCODONE (ROXICODONE) 5 Take 5-10 mL by Therapy completed 09/07/19 16 09/28/2016 mg/5 mL solution mouth every 4 hours as needed for Pain Daily Max: 60 mg diphenhydrAMINE (BENYLIN) Take 50 mg by Therapy completed 09/28/2016 12.5 mg/5 mL syrup mouth every 4 hours. Reported on 09/28/2016 documented as of this encounter Historical Medications This list may reflect changes made after this encounter. Medication Sig Dispensed Refills Start Date End Date methylphenidate Take 10 mg by 0 (RITALIN;METHYLIN) 5 mg mouth 2 times tablet daily. added in this encounter Care Teams Dental Director Relationship Specialty Start Date End Date Juma Herrera MD PCP - General 09/25/12 12/07/18 [address] [place] [address] documented as of this encounter
--- OUTSIDE RECORDS SUMMARY | 2022-06-15 07:53 | XMS_ITS | Encounter Summary ---
:1975 Author Organization [facility] Address [address] [place] [address] Care Team Providers Name Role Phone Juma Herrera MD Primary Care Provider Unavailable Reason for Visit Reason Comments Obesity POST OP SLEEVE 3 MONTHS ( 12/16) Encounter Details Date Type Department Care Team Description 12/09/2015 Office Visit [facility] Master Ugarte S/P laparoscopic Bariatric Surgery - MD Marques sleeve gastrectomy [place] [address] (Primary Dx) [address] [place] [address] [place], [place] [phone] Social History Tobacco Use Types Packs/Day [...] - Inhaled Oxygen Concentration - - Weight 102.1 kg (225 lb) 12/09/2015 1035 EDT Height 172.7 cm (5' 7.99) 12/09/2015 1035 EDT Body Mass Index 34.22 12/09/2015 1035 EDT documented in this encounter Functional Status [...] as of this encounter Discharge Diagnoses Diagnosis Z98.84 Bariatric surgery status-Z98.84[I CD-10-CM] documented in this encounter Progress Notes Lux Dumont, RD - 12/09/2015 1237 EDT Nutrition Post Op Visit: Gastric Sleeve Subjective: Patient returns to clinic for post op nutritional counseling following bariatric surgery~ 3 months ago. Questionnaire Reviewed: Yes Intolerance Episodes: no Food Intolerances:Rice Current Exercise: Walking on Treadmill 15 min X 3-4 days a week Objective: Current Weight: Wt Readings from Last 1 Encounters: 12/09/15 102.059 kg (225 lb) Current BMI: Body mass index is Body mass index is 34.22 kg/(m^2).. Total Weight Loss: Total Loss in lbs (Weight from Initial Consult - Today's Weight): (!) 100.6 lbs Weight Change since Last Visit:-13.6 lbs and lost 54.8 lbs since surgery Supplement Usage: Type Amount MVT with iron Flinstone's complete B12 500 mcg Calcium w/Vit D 600 mg X1 B Complex X1 Other: Prilosec Recent Labs: WNL, Abnormal (D25OH:25.2) Assessment: Adequate Meal Frequency: Yes Adequate Meal Composition: Yes Exercise Adequacy: Yes Nutritional Issues: Tia reports increased stress and has started smoking. Strongly advised her to stop smoking. She was advised by to stop Prilosec. She reports tolerating adequate amounts of protein and fluids a day.She admits still working on eating slowly.Wanted to know why she could not have liquids with meals. Plan: Continue current diet and exercise Change intake:~70 g protein a day; no liquids with meals; eat slowly Increase exercise to 150 minutes a week Supplement Changes:Increase MVM and Ca/Vit D to twice a day; continue other MVM Initiate food logs Education Provided: Weight Control:1-2 lbs per week Other:Bariatric eating guidelines Master Ugarte MD - 12/09/2015 1045 EDT SMOKING again told her to stop or she will get an ulceration,bleed ,perforate and possibly 12/09/2015 Tia Spain is here in follow-up to her laparoscopic sleeve gastrectomy. The weight trend for thepatient is: Weight at initial consult: 147.691 kg (325 lb 9.6 oz), to 108.228 kg (238 lb 9.6 oz) [11/01/2015] at the last post-op visit to today's Weight : (!) 102.059 kg (225 lb). PROBLEM LIST Patient Active Problem List [...] related to pannus reported OBJECTIVE: General Appearance: morbidly obese Abdomen: Incision well-healed Extremities: Normal Skin: Normal ASSESSMENT: Weight Loss: good PLAN: 1. Return to clinic in 3 month(s). 2. No orders of the defined types were placed in this encounter. 3. NEEDS TO STOP SMOKING NOW Seen and discussed with Carpenter Form at this visit. Master Ugarte MD 12/09/2015 10:45 documented in this encounter Plan of Treatment Upcoming Encounters Date Type Specialty Care Team Description 06/25/2022 Telemedicine Neurology Kj Gloria MD PhD 1 [facility], [address] [place], [place] [address] (Wo rk) 09/06/2022 Procedure visit Pain Medicine Catalino Garrett M D [address] [facility] [address] [place] [address] (Wo rk) 09/21/2022 Office Visit Bariatrics Allen Thompson, PA-C [address] [facility], [facility], [address] [place], [place] [address] (Wo rk) documented as of this encounter Visit Diagnoses Diagnosis S/P laparoscopic sleeve gastrectomy - Pr imary Bariatric surgery status documented in this encounter Care Teams Pulmonologist Intensivist Relationship Specialty Start Date End Date Juma Herrera MD PCP - General 09/25/12 12/07/18 [address] [place] [address] documented as of this encounter
--- OUTSIDE RECORDS SUMMARY | 2022-06-15 07:53 | XMS_ITS | Encounter Summary ---
:1975 Author Organization [facility] Address [address] [place] [address] Care Team Providers Name Role Phone Juma Herrera MD Primary Care Provider Unavailable Reason for Referral Radiology Services (Routine) - New Request Specialty Diagnoses / Procedures Referred By Contact Refer red To Contact Diagnoses Right shoulder pain, unspecified chronicity Starr Hart PA-C Procedures SHOULDER 2 OR MORE VIEWS [address] [place] [address] Referral ID Status Reason Start Date Expiration Date Visits V isits Requested Authorized [id number] New Request 05/08/2018 1 1 Encounter Details Date Type Department Care Team Description 05/08/2018 Orders Only [facility] Starr Hart Rig ht shoulder pain, Sports Medicine PA-C unspecified chronicity Program - [place] (Primary Dx) [address] [place] [address] Social History Tobacco Use Types [...] Care Team Description 06/25/2022 Telemedicine Neurology Kj Golria MD PhD 1 [facility] [address] [place], [place] [address] (Wo rk) 09/06/2022 Procedure visit Pain Medicine Catalino Garrett M D [address] [facility] [address] [place] [address] (Wo rk) 09/21/2022 Office Visit Bariatrics Allen Thompson PA-C [address] [facility], [address] [place], [place] [address] (Wo rk) documented as of this encounter Procedures Procedure Name Priority Date/Time Associated Diagnosis Comme nts SHOULDER 2 OR MORE Routine 05/20/2018 10:14 Right shoulder cole n, Results for this VIEWS EDT unspecified procedure are i n chronicity the results section. documented in this encounter Results SHOULDER 2 OR MORE VIEWS (05/20/2018 10:14 EDT) Anatomical Region Laterality Modality Other Specimen Narrative [facility] - 05/20/2018 11:18 EDT EXAM/TECHNIQUE: RIGHT SHOULDER 2 OR MORE VIEW ?? 8 10:14 AM HISTORY: ?? M25.511-Pain in right [id number]; s houlder pain COMPARISON: None. FINDINGS / IMPRESSION: 4 views of the right shoulder show no ev idence of acute fracture or malalignment. The humeral head is well a ligned with the scapular glenoid fossa. There are moderate degene rative changes in the acromioclavicular joint. Procedure Note Mark Sherwood, DO - 05/20/2018 EXAM/TECHNIQUE: RIGHT SHOULDER 2 OR MORE VIEW 05/20/2018 10:14 AM HISTORY: M25.511-Pain in right [id number]; s houlder pain COMPARISON: None. FINDINGS / IMPRESSION: 4 views of the right shoulder show no ev idence of acute fracture or malalignment. The humeral head is well a ligned with the scapular glenoid fossa. There are moderate degene rative changes in the acromioclavicular joint. Performing Organization Address City/State/ZIP Code Phon e Number [facility] [place] documented in this encounter Visit Diagnoses Diagnosis Right shoulder pain, unspecified chronic ity - Primary documented in this encounter Care Teams Mig Tig Welder Relationship Specialty Start Date End Date Juma Herrera MD PCP - General 09/25/12 12/07/18 [address] [place] [address] documented as of this encounter
--- OUTSIDE RECORDS SUMMARY | 2022-06-15 07:53 | XMS_ITS | Encounter Summary ---
:1975 Author Organization [facility] Address [address] [place] [address] Care Team Providers Name Role Phone Juma Herrera MD Unavailable Unavailable Juma Herrera MD Primary Care Provider Unavailable Reason for Referral Radiology Services (Routine/Next Available) - New Request Specialty Diagnoses / Procedures Referred By Contact Refer red To Contact Diagnoses Right shoulder pain, unspecified chronicity Starr Hart PA-C Procedures MSK US SHOULDER [address] [place] [address] Referral ID Status Reason Start Date Expiration Date Visits V isits Requested Authorized [id number] New Request 03/03/2019 1 1 Encounter Details Date Type Department Care Team Description 03/03/2019 Orders Only [facility] Starr Hart Rig ht shoulder pain, Sports Medicine PA-C unspecified chronicity Program - [facility] (Primary Dx) [address] [place] [address] Social History Tobacco Use Types [...] MD PhD 1 [facility] [address] [place], [place] [phone] (Wo rk) 09/06/2022 Procedure visit Pain Medicine Catalino Garrett M D [address] [facility] [address] [place] [address] (Wo rk) 09/21/2022 Office Visit Bariatrics Allen Thompson PA-C [address] [facility], [facility], [address] [place], [place] [address] (Wo rk) Pending Results Name Type Priority Associated Diagnoses Date/Ti me MSK US SHOULDER Imaging Routine Right shoulder pain, 10/2018 13:15 EDT unspecified chronicity documented as of this encounter Visit Diagnoses Diagnosis Right shoulder pain, unspecified chronic ity - Primary documented in this encounter Care Teams Coffee Blender Relationship Specialty Start Date End Date Juma Herrera MD PCP - General 01/07/19 03/13/21 Juma Herrera MD 12/08/18 [address] [facility] [place] [place] [address] documented as of this encounter
--- OUTSIDE RECORDS SUMMARY | 2022-06-15 07:53 | XMS_ITS | Encounter Summary ---
:1975 Author Organization [facility] Address [address] [place] [address] Care Team Providers Name Role Phone Juma Herrera MD Primary Care Provider Unavailable Reason for Referral Laboratory Services (Routine) - Closed Specialty Diagnoses / Procedures Referred By Contact Refer red To Contact Diagnoses Morbid obesity due to excess calories (HCC) S/P laparoscopic sleeve gastrectomy Post-resection malabsorption Vitamin D deficiency Mary Rosales RN Procedures VITAMIN D (25,OH) Referral ID Status Reason Start Date Expiration Date Visits Requ ested Visits Authorized [id number] Closed 12/09/2015 1 1 Laboratory Services (Routine) - Closed Specialty Diagnoses / Procedures Referred By Contact Refer red To Contact Diagnoses Morbid obesity due to excess calories (HCC) S/P laparoscopic sleeve gastrectomy Post-resection malabsorption Mary Roasles RN Procedures IRON Referral ID Status Reason Start Date Expiration Date Visits Requ ested Visits Authorized [id number] Closed 12/09/2015 1 1 Laboratory Services (Routine) - Closed Specialty Diagnoses / Procedures Referred By Contact Refer red To Contact Diagnoses Morbid obesity due to excess calories (HCC) S/P laparoscopic sleeve gastrectomy Post-resection malabsorption Mary Rosales RN Procedures PTH INTACT Referral ID Status Reason Start Date Expiration Date Visits Requ ested Visits Authorized [id number] Closed 12/09/2015 1 1 Laboratory Services (Routine) - Closed Specialty Diagnoses / Procedures Referred By Contact Refer red To Contact Diagnoses Morbid obesity due to excess calories (HCC) S/P laparoscopic sleeve gastrectomy Post-resection malabsorption Bobby, Mary, chemistry associate VITAMIN B12 Referral ID Status Reason Start Date Expiration Date Visits Requ ested Visits Authorized [id number] Closed 12/09/2015 1 1 Laboratory Services (Routine) - Closed Specialty Diagnoses / Procedures Referred By Contact Refer red To Contact Diagnoses Morbid obesity due to excess calories (HCC) S/P laparoscopic sleeve gastrectomy Post-resection malabsorption Mary Rosales, chemistry associate CALCIUM Referral ID Status Reason Start Date Expiration Date Visits Requ ested Visits Authorized [id number] Closed 12/09/2015 1 1 Laboratory Services (Routine) - Closed Specialty Diagnoses / Procedures Referred By Contact Refer red To Contact Diagnoses Morbid obesity due to excess calories (HCC) S/P laparoscopic sleeve gastrectomy Post-resection malabsorption Mary Rosales, chemistry associate FERRITIN Referral ID Status Reason Start Date Expiration Date Visits Requ ested Visits Authorized [id number] Closed 12/09/2015 1 1 Laboratory Services (Routine) - Closed Specialty Diagnoses / Procedures Referred By Contact Refer red To Contact Diagnoses Morbid obesity due to excess calories (HCC) S/P laparoscopic sleeve gastrectomy Post-resection malabsorption Mary Rosales, chemistry associate HEMAGRAM Referral ID Status Reason Start Date Expiration Date Visits Requ ested Visits Authorized [id number] Closed 12/09/2015 1 1 Laboratory Services (Routine) - Closed Specialty Diagnoses / Procedures Referred By Contact Refer red To Contact Diagnoses Morbid obesity due to excess calories (HCC) S/P laparoscopic sleeve gastrectomy Post-resection malabsorption Mary Rosales, chemistry associate CREATININE Referral ID Status Reason Start Date Expiration Date Visits Requ ested Visits Authorized [id number] Closed 12/09/2015 1 1 Laboratory Services (Routine) - Closed Specialty Diagnoses / Procedures Referred By Contact Refer red To Contact Diagnoses Morbid obesity due to excess calories (HCC) S/P laparoscopic sleeve gastrectomy Post-resection malabsorption Mary Rosales, chemistry associate THIAMIN (VITAMIN B1), WB Referral ID Status Reason Start Date Expiration Date Visits Requ ested Visits Authorized [id number] Closed 12/09/2015 1 1 Encounter Details Date Type Department Care Team Description 11/08/2015 Orders Only [facility] Mary Rosales RN Morbid obesity due to excess calories ([facility]) (Primary Dx); Bariatric Surgery - S/P lapa roscopic sleeve gastrectomy; Yoseph Post-resection malabsorption ; [address] [place] [address] Social History Tobacco Use Types Packs/Day Years [...] as of this encounter Progress Notes Mary Rosales RN - 11/08/2015 1333 EST Patient is s/p gastric sleeve and needs post-op labs drawn prior to apt in 6 weeks. Labs ordered per Bariatric lab protocol. Lab slip given to patient. Electronically signed by Mary Rosales, RN, CBN documented in this encounter Plan of Treatment Upcoming Encounters Date Type Specialty Care Team Description 06/25/2022 Telemedicine Neurology Kj Gloria MD PhD 1 [facility], [address] [place], [place] [address] (Wo rk) 09/06/2022 Procedure visit Pain Medicine Catalino Garrett M D [address] [facility] [address] [place] [address] (Wo rk) 09/21/2022 Office Visit Bariatrics Allen Thompson, ELISABETH [address] [facility], [address] [place], [place] [address] (Wo rk) documented as of this encounter Results (ABNORMAL) VITAMIN D (25,OH) (11/23/2015) Pathologist Sig nature 25OH Vitamin D Tot, 25.2 (A) 30 - 100 [facility] LAB Specimen Blood specimen (specimen) Performing Organization Address [facility] Phon e Number [facility] IRON (11/23/2015) Pathologist Sig nature Iron, External 82 [facility] Specimen Blood specimen (specimen) Performing Organization Address City/[facility]/ZIP Code Phon e Number [facility] PTH INTACT (11/23/2015) Pathologist Sig nature PTH, External 23 [facility] Specimen Blood specimen (specimen) Performing Organization Address City/[facility]/ZIP [facility] Phon e Number [facility] VITAMIN B12 (11/23/2015) Pathologist Sig nature Vitamin B-12, External 653 [facility] Specimen Blood specimen (specimen) Performing Organization Address City/[facility]/ZIP Code Phon e Number [facility] CALCIUM (11/23/2015) Pathologist Sig nature Calcium, External 9.3 [facility] Calculated Calcium, [facility] Specimen Blood specimen (specimen) Performing Organization Address [facility] Phon e Number [facility] FERRITIN (11/23/2015) Pathologist Sig nature Ferritin, External 27 [facility] Specimen Blood specimen (specimen) Performing Organization Address City/[facility]/ZIP [facility] Phon e Number [facility] HEMAGRAM (11/23/2015) Pathologist Sig nature HCT, External 43.1 [facility] MCH, External 30.3 [facility] MCV, External 88.3 [facility] MCHC, External 34.3 [facility] Hemoglobin, External 14.8 [facility] WBC, External 7.63 [facility] RBC, External 4.88 [facility] PLT, External 306 [facility] RDW-CV, External 15.1 [facility] Specimen Blood specimen (specimen) Performing Organization Address City/[facility] Phon e Number [facility] CREATININE (11/23/2015) Pathologist Sig nature Creatinine, External 0.6 [facility] GFR, Calculated, [facility] Specimen Blood specimen (specimen) Performing Organization Address City/[facility]/ZIP [facility] Phon e Number [facility] THIAMIN (VITAMIN B1), WB (11/23/2015) Pathologist Sig nature Thiamine, External 106 [facility] Comment, External [facility] Specimen Blood specimen (specimen) Performing Organization Address City/[facility]/ZIP [facility] Phon e Number [facility] documented in this encounter Visit Diagnoses Diagnosis Morbid obesity due to excess calories ([facility]) - Primary S/P laparoscopic sleeve gastrectomy Bariatric surgery status Post-resection malabsorption Other and unspecified postsurgical nonab sorption Vitamin D deficiency Unspecified vitamin D deficiency documented in this encounter Care Teams Maintenance Person Relationship Specialty Start Date End Date Juma Herrera MD PCP - General 09/25/12 12/07/18 [address] [place] [address] documented as of this encounter
--- OUTSIDE RECORDS SUMMARY | 2022-06-15 07:53 | XMS_ITS | Encounter Summary ---
:1975 Author Organization [facility] Address [address] [place] [address] Care Team Providers Name Role Phone Alejandra Trevino MD Primary Care Provider Unavailable Encounter Details Date Type Department Care Team Description 11/22/2016 Results Only [facility] Dariela Burdick MD [phone] [address] [place] [address] Social History Tobacco Use Types Packs/Day Years [...] Telemedicine Neurology Kj Gloria MD PhD 1 [facility], [address] [place], [place] [phone] (Wo rk) 09/06/2022 Procedure visit Pain Medicine Catalino Garrett M D [address] [facility] [address] [place] [address] (Wo rk) 09/21/2022 Office Visit Bariatrics Allen Thompson PA-C [address] [facility], [address] [place], [place] [address] (Wo rk) documented as of this encounter Procedures Procedure Name Priority Date/Time Associated Diagnosis Comme [facility] SURGICAL PATHOLOGY Routine 11/22/2016 21:30 Resul ts for this EDT procedure are i n the results section. documented in this encounter Results SURGICAL PATHOLOGY (11/22/2016 21:30 EDT) Pathology Report: SURGICAL PATHOLOGY REPORT [facility] Reports generated via electronic interface contain efrain ginal data; LABORATORY however they are lacking the format of the original re port. SERVICES Caution should be taken when reading/interpreting unfo rmatted reports. Name: ? TIA HITCHCOCK ? Accession #: ? [id number] ? : ? 1975 (Age: 41) ??F ? Collect Date: ? 11/22/2016 ? Location: ? [facility] ? Receive Date: ? 11/23/19 17 ? Provider: DARIELA ANAYA MD Copy to: ALEJANDRA TREVINO MD ? Final Pathologic Diagnosis: A. UTERUS, CERVIX, AND FALLO PIAN TUBE, RIGHT FIMBRIA, HYSTERECTOMY AND DISTAL SALPINGECTOMY: - ??Endometrium: ? - ??Proliferative. - ??Myometrium: ? - ??Focal adenomyosis. ? - ??Leiomyomata (0.5 cm maximal dimension); - ??Cervix: ? - ??Chronic cervicitis. - ??Serosa: ? - ??No pathologic features. - ??Fallopian tube: ? - ??Distal portion of fallopian tube with parat ubal cyst. B. SUBMITTED LEFT FIBRIMA, DISTAL SALPINGECTOMY: - ??Distal portion of fallopian tube with paratubal cy st. Document reviewed and electronically signed by: JAYLAN RUIZ MD Report ??Date: 11/26/2016 15:11 By the signature above, the attending physician certif ies that he/she has personally conducted a gross and/or microscopic examin ation of the described specimens and rendered or confirmed the above diagnosi s. Specimen(s) Received: A. ??Uterus and R fimbria B. ??L fimbria Clinical History: Menorrhagia; dysmenorrhea Gross Description: A. ?Received in formalin labelled with proper p atient identification (initials C, S) and R fimbria and uterus is a 170 g intact uterus (10.8 cm cervix to fundus, 7.0 cm cor nu to cornu, and 4.9 cm anterior to posterior). The serosa is dull and ko-gillespie. The cervix is 3.5 cm in d iameter and displays a patent os. The endocervical canal is lined by a reticular ko-gillespie surface. The endometrium is soft and ko-gillespie to foca lly hemorrhagic and measures up to 1.0 cm in thickness. The myometrium shows two intramural a nd subserosal nodules, averaging 0.5 cm in greatest dimension. The subserosal nodule has a gillespie-white cut surface. The intramural nodule has a ko-brown cut surface. The myometrium is otherwise unremarkable. R eceived in the same container is a 1.5 cm in length distal fallopian tube segment, averaging 0.7 cm in tejas meter. A partially collapsed fluid filled cyst is present. Additional tub al segments are not identified. Certified Activities Director sections are submitted as brandee mahoney: BLOCK LOUIE A1- ??anterior cervix A2- ??anterior lower uterine segment A3-A4- ??anterior endomyometrium A5- ??posterior cervix A6- ??posterior lower uterine segment A7-A8- ??posterior endomyometrium A9- ??subserosal nodule A10- ??intramural nodule A11- ??entire right distal fallopian tube B. ?Received in formalin labelled with proper p atient identification (initials C, S) and L fimbria is a 5.5 cm in l ength fallopian tube, ranging from 0.6-1.0 cm in diameter. The distal tube shows a partially collapsed clear fluid filled thin walled cyst (1.1 cm in diameter). Th e serosa is dusky and gillespie-brown. Sections show an intact wall with a pinpoint lumen. Certified Activities Director sections are submitted, to i nclude the entire distal end and one cross section, in B1 and B2. MARGARITA Nixon ([facility]) 11/23/2016 11:43 AM End of Report Specimen Performing Organization Address City/State/ZIP Code Phon e Number [facility] [address] [place] [phone] SERVICES documented in this encounter Visit Diagnoses Not on filedocumented in this encounter Care Teams Patient Care Manager Relationship Specialty Start Date End Date Alejandra Trevino MD PCP - General 09/25/12 12/07/18 [address] [place] [address] documented as of this encounter
--- OUTSIDE RECORDS SUMMARY | 2022-06-15 07:53 | XMS_ITS | Encounter Summary ---
:1975 Author Organization [facility] Address [address] [place] [address] Care Team Providers Name Role Phone Juma Herrera MD Primary Care Provider Unavailable Encounter Details Date Type Department Care Team Description 03/09/2016 Phlebotomy Only [facility] [employer] ExpertBen obesity, unspecified obesity type ([facility]); - [facility] Outpatient S/P laparoscopic sleeve sondra rectomy; [address] [facility] [place] [address] Social History Tobacco Use Types Packs/Day Years [...] PhD 1 [facility], [address] [place], [place] [phone] (Wo rk) 09/06/2022 Procedure visit Pain Medicine Catalino aGrrett M D [address] [facility] [address] [place] [address] (Wo rk) 09/21/2022 Office Visit Bariatrics Allen Thompson, ELISABETH [address] [facility], [address] [place], [place] [address] (Wo rk) documented as of this encounter Procedures Procedure Name Priority Date/Time Associated Diagnosis Comme nts THIAMIN (VITAMIN Routine 03/09/2016 9:54 Morbid obesity, Resul ts for this B1), WB EDT unspecified obesity procedur e are in type ([facility] the results S/P laparoscopic section. sleeve gastrecto my Vitamin D deficiency VITAMIN D (25,OH) Routine 03/09/2016 9:54 Morbid obesity, Resu lts for this EDT unspecified obesity procedur e are in type [place] the results S/P laparoscopic section. sleeve gastrecto my Vitamin D deficiency IRON Routine 03/09/2016 9:54 Morbid obesity, Results f or this EDT unspecified obesity procedur e are in type ([facility] the results S/P laparoscopic section. sleeve gastrecto my Vitamin D deficiency FERRITIN Routine 03/09/2016 9:54 Morbid obesity, Results f or this EDT unspecified obesity procedur e are in type [place] the results S/P laparoscopic section. sleeve gastrecto my Vitamin D deficiency documented in this encounter Results THIAMIN (VITAMIN B1), WB (03/09/2016 9:54 EDT) Thiamin (Vit B1), 117 70 - 180 [facility] WB Comment: nmol/L [facility] Performed by: [facility] [place] and, [address], [facility] [address], Staff Radiographer: Yoly Bhatt, Ph.D. Specimen Blood specimen (specimen) - Blood Performing Organization Address City/[facility]/ZIP Code Phon e Number [facility] [address] [place] [address] SERVICES VITAMIN D (25,OH) (03/09/2016 9:54 EDT) 25OH Vitamin D 31.5 30 - 100 [facility] Tot Comment: ng/ml [facility]ENTER [facility] Reference Range: SERVICES Deficient = <10 ng/ml Insufficient = 10-30 ng/ml Sufficient = 30-100 ng/ml Toxic = >100 ng/ml Specimen Blood specimen (specimen) - Blood Performing Organization Address [facility]/ZIP Code Phon e Number [facility] [address] [place] [address] SERVICES IRON (03/09/2016 9:54 EDT) Pathologist Sig nature Iron 69 37 - 170 ug/dl [facility] [place]Y SERVICES Specimen Blood specimen (specimen) - Blood Performing Organization Address City/[facility]/ZIP Code Phon e Number [facility] [address] [place] [address] SERVICES FERRITIN (03/09/2016 9:54 EDT) Pathologist Sig nature Ferritin 19 10 - 291 ng/ml [facility] SERVICES Specimen Blood specimen (specimen) - Blood Performing Organization Address City/[facility]/ZIP [facility] Phon e Number [facility] [address] [place] [address] SERVICES documented in this encounter Visit Diagnoses Diagnosis Morbid obesity, unspecified obesity type (HCC-CMS) (HCC) S/P laparoscopic sleeve gastrectomy Bariatric surgery status Vitamin D deficiency Unspecified vitamin D deficiency documented in this encounter Care Teams Aboriginal Liaison Officer Relationship Specialty Start Date End Date Juma Herrera MD PCP - General 09/25/12 12/07/18 [address] [place] [address] documented as of this encounter
--- OUTSIDE RECORDS SUMMARY | 2022-06-15 07:53 | XMS_ITS | Encounter Summary ---
:1975 Author Organization [facility] Address [address] [place] [address] Care Team Providers Name Role Phone Juma Herrera MD Unavailable Unavailable Juma Herrera MD Primary Care Provider Unavailable Reason for Visit Reason Comments Follow-up Consult (Routine) - Specialty Report Received Specialty Diagnoses / Procedures Referred By Contact Refer red To Contact Orthopedic Surgery Diagnoses Chronic bilateral low back pain without sciatica Cervicalgia Starr Hart [facility] Spine PA-C [address] [phone] Phone: Fax: Referral ID Status Reason Start Expiration Visits Visits Date Date Requested Authorized [id number] Specialty Specialty 03/03/2019 1 1 Report Services Received Required Encounter Details Date Type Department Care Team Description 04/03/2019 Office Visit [facility] Kj Child Chronic midline low Spine Program - Moises Kovacs MD back pain without [address] sciatica (Primary Dx) [address] [address] Social History Tobacco Use Types Packs/Day [...] as of this encounter Discharge Diagnoses Diagnosis Z98.1 Arthrodesis status-Z98.1[ICD-10-CM ] M54.5 Low back pain-M54.5[ICD-10-CM] G89.29 Other chronic pain-G89.29[ICD-10- CM] documented in this encounter Discharge Disposition Disposition Code Departure Means Destination Auto Discharge documented in this encounter Progress Notes Kj Child MD - 04/03/2019 0845 EDT This office note has been dictated. Kj Child MD documented in this encounter Consult Notes Kj Child MD - 04/03/2019 0000 EDT [facility] SPINE PROGRAM CONSULTATION - 04/03/2019 PROBLEM LIST: 1. 50% back, 50% right leg pain. a. L5 isthmic spondylolisthesis. b. Status post right L5-S1 discectomy and decompression, 1999 (Elissa). c. L5-S1 decompression and fusion, January 14, 2007 (Mateusz). 2. Obesity. a. BMI 38. 3. 50 pack year smoking history. 4. History of narcotic addiction. a. Sobriety x3 years. 5. Post-traumatic stress disorder. 6. Bipolar disorder. 7. Personality disorder. 8. Right shoulder pain. 9. Neck and right shoulder pain. a. Status post C5-C6 ACDF. 10. Low back pain. SUBJECTIVE: The patient is a 43-year-old woman with the above medical problems who had undergone a previous lumbar decompression and fusion, had complete relief of preoperative back and leg pain, but after several years, began developing back pain again. Has had persisting low lumbosacral discomfort wi thout radiation into her legs. Notes it is constant, exacerbated by activities. Nothing in particular seems to relieve it. She has undergone every 3 months, trigger point injections, finds them mildly helpful but not significantly. She did 2 months of physical therapy, which gave no change, chiropracty which did not change her symptoms. She has intermittently worn a brace, which is not helpful. She does take oxycodone. Currently takes 40 to 60 mg of oxycodone a day, which is only mildly helpful. Shedenies any bowel or bladder loss or changes, no genital numbness. The patient also describes neck pain. She has had neck pain and right periscapular pain, which has gone on for many years. She described pain in the mid cervical region, radiation of the right medial border of her scapula is constant. Nothing in particular tends to exacerbate or relieve it. She has und ergone dry needling with no relief. Massage, which is helpful, physical therapy, which has not made any difference and traction, which does provide some relief. Postural training is helpful. She has been seen by Starr Hart. Gets subacromial injection which significantly helped pain along the top of her shoulder but does not do anything for the neck or periscapular symptoms. She notes no numbness,tingling or weakness in the right arm, although she notes the arm feels heavy. Past medical history, allergies and medications reviewed in [facility]. SOCIAL HISTORY: The patient is on SSDI. 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 She smokes half pack a day. OBJECTIVE: 5/5 deltoid, internal, external rotation, biceps, triceps, wrist flexion/extension, finger abduction, 5/5 EHL, tib ant, peroneal, gastroc, quad, ham, psoas, trace knee, trace ankle, no clonus, negative straight leg raising, negative Holm's. Neck is nontender. No interscalene tenderness. X-RAYS: MRI of the cervical spine shows multiple levels of degeneration. No evidence of spinal cord or nerve root impingement, no evidence of any significant foraminal stenosis. AP, lateral, flex/ex lateral lumbar films show an L3 pars defect, multiple levels of facet arthropathy. MRI demonstrates no e vidence of any significant neurologic impingement in the lumbar spine. ASSESSMENT: Woman with neck and periscapular pain. The periscapular pain is referred symptoms, I do not think she has either myelopathy or radiculopathy. Symptoms are secondary to degeneration, low back pain could be secondary to musculoligamentous etiology, facet arthropathy or pars defect or some com bination of all these entities as well as previous surgery and muscular scarring. I discussed options and expectant management, ongoing exercise program to optimize function, facet blocks. I certainly do not see any specific lesion that surgery has a high likelihood of correcting as we do not have specificity regarding the location of her symptomatology. I discussed she may hurt, but she cannot hurtherself or cause damage. We discussed continued use of narcotics is detrimental in long-term as it causes sensitization and I would recommend narcotic weaning. She is clear she does not want surgery either for her neck or back as well. PLAN: 1. Pool therapy 3 days a week to optimize her function. 2. APS for L3-L4 and L4-L5 facet blocks. 3. Recommend narcotic weaning. 4. Follow up p.r.n. Kj Child MD 10 48 AM - Kj Child MD an Dictation ID: [id number] cc: Juma Herrera MD, [address] [id number] signed by Kj Child MD at 04/04/2019 14:02 EDTdocumented in this encounter Plan of Treatment Upcoming Encounters Date Type Specialty Care Team Description 06/25/2022 Telemedicine Neurology Kj Gloria MD PhD 1 [facility], [address] [place], [place] [phone] (Wo rk) 09/06/2022 Procedure visit Pain Medicine Catalino Garrett M D [address] [place] [address] [place] [phone] (Wo rk) 09/21/2022 Office Visit Bariatrics Allen Thompson, ELISABETH [facility], [address] [place], [place] [address] (Wo rk) documented as of this encounter Visit Diagnoses Diagnosis Chronic midline low back pain without sc iatica - Primary documented in this encounter Care Teams Geriatric Psychiatrist Relationship Specialty Start Date End Date Juma Herrera MD PCP - General 01/07/19 03/13/21 Juma Herrera MD 12/08/18 [address] [place] [address] documented as of this encounter
--- OUTSIDE RECORDS SUMMARY | 2022-06-15 07:53 | XMS_ITS | Encounter Summary ---
:1975 Author Organization [facility] Address [address] [place] [address] Care Team Providers Name Role Phone Juma Herrera MD Primary Care Provider Unavailable Reason for Visit Reason Onset Date Comments Advice Only 09/09/2015 Encounter Details Date Type Department Care Team Description 09/09/[address] [facility] Bariatric [address] Advice Only Surgery - [place] [address] [place] [phone] (Wo rk) Social History Tobacco Use Types [...] this encounter Miscellaneous Notes Telephone Encounter - Lux Dumont, THOMAS - 09/09/2015 0805 EST BARIATRIC SURGERY POST-OP CALL NOTE Date of Surgery:09/05/15 Date of Discharge:09/07/15 Surgeon: Shanel Type of Surgery: Gastric Sleeve Patient Complains of: No complaints or problems except for some bloating. She has been taking Gas-X. Patient Tolerating: Adequate Fluids(~56 ounces a day) and Medications. Plan: Advance to bariatric full liquids on 09/11/15 Return to Clinic:09/14/[address] 09/09/2015 8:05 documented in this encounter Plan of Treatment Upcoming Encounters Date Type Specialty Care Team Description 06/25/2022 Telemedicine Neurology Kj Gloria MD PhD 1 [facility] [address] [place], [place] [phone] (Jayjay anaya) 09/06/2022 Procedure visit Pain Medicine Catalino Garrett M D [address] [place] [address] [address] [place] [address] (Jayjay anaya) 09/21/2022 Office Visit Bariatrics Allen Thompson PA-C [address] [facility], [facility], [address] [place], [place] [phone] (Jayjay anaya) documented as of this encounter Visit Diagnoses Not on filedocumented in this encounter Care Teams Health Services Director Relationship Specialty Start Date End Date Juma Herrera MD PCP - General 09/25/12 12/07/18 [address] [place] [address] documented as of this encounter
--- OUTSIDE RECORDS SUMMARY | 2022-06-15 07:53 | XMS_ITS | Encounter Summary ---
:[address] [facility] Address [address] [place] [address] Care Team Providers Name Role Phone Juma Herrera MD Primary Care Provider Unavailable Encounter Details Date Type Department Care Team Description 07/09/2018 Orders Only [facility] Starr Webster PA-C Medicine Program - T jimbo [facility], [facility] [address] [place], [place] [address] Social History Tobacco Use [...] Telemedicine Neurology Kj Gloria MD PhD 1 [facility], [address] [place], [place] [phone] (Wo rk) 09/06/2022 Procedure visit Pain Medicine Catalino Garrett M D [address] [facility] [address] [place] [address] (Wo rk) 09/21/2022 Office Visit Bariatrics Allen Thompson PA-C 111 [facility], [address] [place], [place] [address] (Wo rk) documented as of this encounter Visit Diagnoses Not on filedocumented in this encounter Care Teams Unisaw Operator Relationship Specialty Start Date End Date Juma Herrera MD PCP - General 09/25/12 12/07/18 [address] [place] [address] documented as of this encounter
--- OUTSIDE RECORDS SUMMARY | 2022-06-15 07:53 | XMS_ITS | Encounter Summary ---
:1975 Author Organization [facility] Address [address] [place] [address] Care Team Providers Name Role Phone Juma Herrera MD Primary Care Provider Unavailable Reason for Visit Reason Onset Date Comments Results 11/28/2015 Encounter Details Date Type Department Care Team Description 11/28/2015 Orders Only [facility] Mary Rosales RN Morbid obesity due to excess calories ([facility]); Bariatric Surgery - S/P lapa roscopic sleeve gastrectomy; Yoseph Post-resection malabsorption ; [address] [place] [address] Social History Tobacco Use Types Packs/Day Years [...] Telemedicine Neurology Kj Gloria MD PhD 1 [facility], [address] [place], [place] [phone] (Wo rk) 09/06/2022 Procedure visit Pain Medicine Catalino Garrett M D [address] [facility] [address] [place] [address] (Wo rk) 09/21/2022 Office Visit Bariatrics Allen Thompson PA-C 111 [facility], [facility], [address] [place], [place] [address] (Wo rk) documented as of this encounter Procedures Procedure Name Priority Date/Time Associated Diagnosis Comme nts THIAMIN (VITAMIN B1), Routine 11/23/2015 Morbid obesity due to Results for this WB excess calories [place]. S/P laparoscopic sleeve gastrectomy Post-resection malabsorption VITAMIN D (25,[place]) Routine 11/23/2015 Morbid obesity due to R esults for this excess calories procedure ar e in the [place] [place]. S/P laparoscopic sleeve gastrectomy Post-resection malabsorption Vitamin D deficiency PTH INTACT Routine 11/23/2015 Morbid obesity due to Result s for this excess calories procedure ar e in the [place]. S/P laparoscopic sleeve gastrectomy Post-resection malabsorption COMPLETE BLOOD COUNT Routine 11/23/2015 Morbid obesity due t o Results for this excess calories procedure ar e in the [place] [place]. S/P laparoscopic sleeve gastrectomy Post-resection malabsorption IRON Routine 11/23/2015 Morbid obesity due to Result s for this excess calories procedure ar e in the [place] [place]. S/P laparoscopic sleeve gastrectomy Post-resection malabsorption FERRITIN Routine 11/23/2015 Morbid obesity due to Result s for this excess calories procedure ar e in the ([facility]) results section. S/P laparoscopic sleeve gastrectomy Post-resection malabsorption VITAMIN B12 Routine 11/23/2015 Morbid obesity due to Result s for this excess calories procedure ar e in the [place] [place]. S/P laparoscopic sleeve gastrectomy Post-resection malabsorption CREATININE Routine 11/23/2015 Morbid obesity due to Result s for this excess calories procedure ar e in the [place] [place]. S/P laparoscopic sleeve gastrectomy Post-resection malabsorption CALCIUM Routine 11/23/2015 Morbid obesity due to Result s for this excess calories procedure ar e in the [place]. S/P laparoscopic sleeve gastrectomy Post-resection malabsorption documented in this encounter Results CALCIUM (11/23/2015) Pathologist Sig nature Calcium, External 9.3 [facility] Calculated Calcium, [facility] Specimen Blood specimen (specimen) Performing Organization Address [facility] Phon e Number [facility] CREATININE (11/23/2015) Pathologist Sig nature Creatinine, External 0.6 [facility] GFR, Calculated, [facility] Specimen Blood specimen (specimen) Performing Organization Address [facility] Phon e Number [facility] FERRITIN (11/23/2015) Pathologist Sig nature Ferritin, External 27 [facility] Specimen Blood specimen (specimen) Performing Organization Address [facility]/ZIP [facility] Phon e Number [facility] HEMAGRAM (11/23/2015) Pathologist Sig nature HCT, External 43.1 [facility] MCH, External 30.3 [facility] MCV, External 88.3 [facility] MCHC, External 34.3 [facility] Hemoglobin, External 14.8 [facility] WBC, External 7.63 [facility] RBC, External 4.88 [facility] PLT, External 306 [facility] RDW-CV, External 15.1 [facility] Specimen Blood specimen (specimen) Performing Organization Address [facility]/State/ZIP Code Phon e Number [facility] IRON (11/23/2015) Pathologist Sig nature Iron, External 82 [facility] Specimen Blood specimen (specimen) Performing Organization Address [facility]/ZIP Code Phon e Number [facility] PTH INTACT (11/23/2015) Pathologist Sig nature PTH, External 23 [facility] Specimen Blood specimen (specimen) Performing Organization Address City/[facility]/ZIP Code Phon e Number [facility] THIAMIN (VITAMIN B1), WB (11/23/2015) Pathologist Sig nature Thiamine, External 106 [facility] Comment, External [facility] Specimen Blood specimen (specimen) Performing Organization Address [facility]/ZIP Code Phon e Number [facility] VITAMIN B12 (11/23/2015) Pathologist Sig nature Vitamin B-12, External 653 [facility] Specimen Blood specimen (specimen) Performing Organization Address [facility]/ZIP Code Phon e Number [facility] (ABNORMAL) VITAMIN D (25,[place]) (11/23/2015) Pathologist Sig nature 25OH Vitamin D Tot, 25.2 (A) 30 - 100 [facility] Specimen Blood specimen (specimen) Performing Organization Address [facility]/ZIP [facility] Phon e Number [facility] documented in this encounter Visit Diagnoses Diagnosis Morbid obesity due to excess calories ([facility]) S/P laparoscopic sleeve gastrectomy Bariatric surgery status Post-resection malabsorption Other and unspecified postsurgical nonab sorption Vitamin D deficiency Unspecified vitamin D deficiency documented in this encounter Care Teams Director Economic Relationship Specialty Start Date End Date Juma Herrera MD PCP - General 09/25/12 12/07/18 [address] [place] [address] documented as of this encounter
--- OUTSIDE RECORDS SUMMARY | 2022-06-15 07:53 | XMS_ITS | Encounter Summary ---
:1975 Author Organization [facility] Address [address] [place] [address] Care Team Providers Name Role Phone Juma Herrera MD Primary Care Provider Unavailable Reason for Visit Reason Comments Shoulder Pain right Consult, Test and Treat (Routine) - Authorization Not Required Specialty Diagnoses / Procedures Referred By Contact Refer red To Contact Orthopedic Surgery Diagnoses Pain in right shoulder Juma Herrera MD [facility] [address] [facility] [place] [address] [place] [address] Phone: Fax: Referral ID Status Reason Start Expiration Visits Visits Date Date Requested Authorized [id number] Authorization Not 1 1 Required Encounter Details Date Type Department Care Team Description 05/20/2018 Office Visit [facility] Starr Hart Nec k pain (Primary Dx); Sports Medicine PA-C Chronic righ t shoulder pain Program [place] [address] Social History Tobacco Use Types [...] - Inhaled Oxygen Concentration - - Weight 80.3 kg (177 lb) 05/20/2018 1015 EDT Height 170.2 cm (5' 7) 05/20/2018 1015 EDT Body Mass Index 27.72 05/20/2018 1015 EDT documented in this encounter Functional Status [...] as of this encounter Discharge Diagnoses Diagnosis M19.011 Primary osteoarthritis, right sh oulder-M19.011[ICD-10-CM] M54.2 Cervicalgia-M54.2[ICD-10-CM] documented in this encounter Discharge Disposition Disposition Code Departure Means Destination Auto Discharge documented in this encounter Progress Notes Starr Hart PA - 05/20/2018 1030 EDT Tia Spain is being seen as a consultation from Dr. Juma Herrera Chief Complaint Patient presents with ??? Shoulder Pain right PROBLEM: Right shoulder pain, neck pain SUBJECTIVE: This is a 42-year-old female presenting with right shoulder pain with a history of a C6-C7 ACDF performed by Dr Child in 2013. This helped with right radicular pain though she has continued to experience neck pain with gradually worsening right shoulder pain. There is a constant pain in the neck with pain extending into the scapular region. Current pain is a 7/10. The pain in the shoulder is constant with multiple locations including the front side and back of the shoulder, which worsens with movement of the shoulder including reaching out to the side and front, behind her back, sleeping on the right arm, pain with driving, as well as reading. She finds comfort if her arm is close to her body. There is persistent numbness in her thumb, index, middle digits since her cervical spine surgery. Some dorsal forearm numbness as well. For years, she has been doing physical therapy but, over the last couple of months, has been attending physical therapy 1 to 2 times a week. The massage therapy as temporarily alleviating. If she triesto do stretches and exercises, though, this does increase her pain. She uses oxycodone mainly for lower back pain and also has undergone previous fusion, Cymbalta, Lyrica and marijuana as needed for pain. Patient Active Problem List Diagnosis Date Noted ??? Morbid obesity with BMI of 45.0-49.9, adult ([facility]) 03/10/2015 ??? Cervicalgia 09/29/2012 ??? Idiopathic peripheral neuropathy 03/20/2012 ??? Tarsal tunnel syndrome of right side 08/02/2011 ??? 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 Lumbar radiculopathy 10/03/2006 Class: Permanent Past Medical History: Diagnosis Date ??? Anxiety ??? Arthritis ??? Back pain ??? Bipolar disorder ([facility]) ??? Breathing problem ??? Depression ??? Diabetes mellitus ([facility]) ??? Drug abuse ??? Eye problem ??? Generalized headaches ??? Headache(784.0) ??? Heart disease ??? History of substance abuse ??? Hypertension ??? Kidney disease ??? Mental disorder ??? Nervousness(799.21) ??? Numbness ??? Personality disorder ??? Plantar fasciitis ??? PTSD (post-traumatic stress disorder) ??? Tarsal tunnel syndrome Past Surgical History: Procedure Laterality Date ??? BACK SURGERY ??? CHOLECYSTECTOMY ??? LAMINECTOMY L5-S1 Dr. Bowers 1999 ??? SPINAL FUSION L5-S1 Dr. Child 2006 ??? TUBAL LIGATION Current Outpatient Prescriptions: duloxetine (CYMBALTA) 30 mg capsule LORazepam (ATIVAN) [...] (PROPRANOLOL ORAL) rizatriptan (MAXALT) 10 mg tablet No current facility-administered medications for this visit. Allergies Allergen Reactions ??? Adhesive Other (See Comments) Skin irritation, paper tape ok ??? Bee Sting [Hymenoptera Allergenic Extract] Swelling Fever and vomiting ??? Codeine Hives and Nausea And Vomiting ??? Other - See Comments Nausea And Vomiting Root beer A 10-point review of systems has been reviewed from the new patient intake sheet and all positives and negatives are noted. OBJECTIVE: Physical Exam Ht 170.2 cm (67) Wt 80.3 kg (177 lb) BMI 27.72 kg/m2 On physical exam, the patient is found to be a pleasant and cooperative female who appears to be alert and oriented x 3. Patient is well-developed, well- nourished and in no significant distress. Breathing is unlabored. Skin is warm, pink and dry to inspection and palpation. Neurovascularly intact withgood capillary refill. Right scapular dyskinesis with superior atrophy mildly at the pectoralis on the right; 90 degrees ofright active abduction, forward flexion, full passive abduction, forward flexion, 90 degrees of scapular abduction with pain elicited, 60 degrees right, 70 degrees left, external rotation. Internal rotation on the right to T12; 4+/5 empty can, resisted external rotation, belly press. Positive [place]'s, Speed's. Negative Yergason's. There is palpable tenderness diffusely, coracoid process, long head of the bicep tendon, greater tuberosity, AC joint. She has decreased cervical range of motion in all planes, palpable tenderness throughout the midlinecervical spine. Spurling's on the right reproduces some aspect of her right shoulder pain. Decreasedsensation, dorsal forearm, thumb, index, middle digits on the right, 1+ biceps, brachioradialis, triceps reflexes bilaterally. Negative Holm's. She has 4 to 5 bilateral triceps full strength, elbow flexion, wrist flexors, extensors, 4 to 5 right intrinsics. Full strength executive asst strength. Radiographs of the shoulder obtained 05/20/2018 reveal mild to moderate AC joint degenerative changes. She had a previous MRI of the cervical spine with a small disk herniation midline just to the right aspect of the cord at C5-C6 with large disk herniation at C6-C7 and right foraminal stenosis. ASSESSMENT: A 42-year-old female with right shoulder pain, likely a component of rotator cuff tendinopathy, subacromial bursitis. Unclear if she has intraarticular related pathology contributing to hersymptoms. Also with persistent neck pain and cervical degenerative changes at C5-C6. Unclear if she has a radicular component contributing to her arm pain at this time. We discussed further diagnostic and treatment options. A diagnostic therapeutic subacromial injection would be beneficial as well as further evaluation with MRI of the shoulder and neck to determine etiology of her symptoms and further treatment options. PLAN: 1. Right ultrasound-guided subacromial injection today. 2. MRI of the neck and right shoulder MRI same day and follow up in the afternoon. Dr. Harmon was the attending physician available in the clinic today if needed. A consultation was not required. Bee solis - 05/20/2018 1030 EDT Right USG SA Injection Bupivacaine 0.5% 10 mL Med lot [id number]: [facility] number: [id number] Exp date:01/20 Bench Shear Operator: [employer] Drug waste: 10 mL vial, used 3 mL, wasted 7 mL KENALOG 40 mg/mL Med lot number:[id number] NDC number:[id number] Exp date:02/18 Bench Shear Operator: [employer] Drug waste:5 mL vial, used 2 mL, wasted 3 mL LIDOCAINE 2 % 20 mL Med lot number:[id number] NDC number:[id number] Exp date: 02/21 Bench Shear Operator: [employer] Drug waste: 20 mL vial, used 6 mL, wasted 14 mL Bee Jackson 05/20/2018 11:18 documented in this encounter Procedure Notes Starr Hart PA - 05/20/2018 1030 EDT Procedure: Procedures Chief Complaint Patient presents with ??? Shoulder Pain right SUBJECTIVE: Tia Spain is a 42 y.o.@ who presents for a ultrasound guided injection into the right subacromial space. Patient has a diagnosis of left shoulder pain. 9 out of 10 pain. Risks, benefits and [...] was verbally confirmed prior to the procedure ?? PROCEDURE NOTE: Right shoulder subacromial injection under ultrasound guidance The patient was brought to the examination room. The correct side was identified in a quach moment to accurately inject the proper joint. After verbal consent obtained, area of superolateral shoulder was palpated and landmarks were noted. The acromion, supraspinatus tendon and greater tuberosity were localized under ultrasound. Images were saved. Pt prepped with isopropyl alcohol and draped. The region to be injected was anesthestized using 3 cc of 2% lidocaine. ?? Under sterile conditions and using ultrasound for [...] bandaged. The patient tolerated the procedure well. ?? After care was reviewed including icing, use of NSAIDs prn and activity modification. ?? Patient will follow up after her MRI's I discussed all of the above verbally with patient, no barriers to understanding. The patient indicated understanding and agrees to the above plan. ?? documented in this encounter Plan of Treatment Upcoming Encounters Date Type Specialty Care Team Description 06/25/2022 Telemedicine Neurology Kj Gloria MD PhD 1 [facility] [address] [place], [place] [address] (Wo rk) 09/06/2022 Procedure visit Pain Medicine Catalino Garrett M D [address] [facility] [address] [place] [address] (Wo rk) 09/21/2022 Office Visit Bariatrics Allen Thompson PA-C [address] [facility], [address] [place], [place] [address] (Wo rk) documented as of this encounter Visit Diagnoses Diagnosis Neck pain - Primary Cervicalgia Chronic right shoulder pain Pain in joint, shoulder region documented in this encounter Care Teams Hat Brusher Machine Relationship Specialty Start Date End Date Juma Herrera MD PCP - General 09/25/12 12/07/18 [address] [place] [address] documented as of this encounter
--- OUTSIDE RECORDS SUMMARY | 2022-06-15 07:53 | XMS_ITS | Encounter Summary ---
:1975 Author Organization [facility] Address [address] [place] [address] Care Team Providers Name Role Phone Juma Herrera MD Primary Care Provider Unavailable Reason for Visit Reason Onset Date Comments Paperwork request 11/10/2015 Pt unable to find re turn to work letter; requests another one to be fa xed to her HR. Pt stated that the HR fax number should be in her chart as other paperwork had been faxed there for her. Encounter Details Date Type Department Care Team Description 11/10/2015 Telephone [facility] Master Ugarte request (Pt Bariatric Surgery - MD Marques unable to find return [address] to work letter; [address] [place] [address] [place] [phone] be faxed to her HR. Pt [phone] (Wo rk) stated that the HR fax number sh ould be in her chart as other paperwork had b een faxed there for her.) Social History Tobacco Use Types Packs/Day Years [...] encounter Miscellaneous Notes Telephone Encounter - Mary Rosales RN - 11/10/2015 0928 EST Faxed return to work letter to employer. Electronically signed by Mary Rosales RN CBN documented in this encounter Plan of Treatment Upcoming Encounters Date Type Specialty Care Team Description 06/25/2022 Telemedicine Neurology Kj Gloria MD PhD 1 [facility] 2 [place], [place] [address] (Wo héctor) 09/06/2022 Procedure visit Pain Medicine Catalino Garrett M D [address] [place] [address] [address] [place] [address] (Wo rk) 09/21/2022 Office Visit Bariatrics Allen Thompson PA-C [address] [place] [address], [address] [place], [place] [address] (Wo héctor) documented as of this encounter Visit Diagnoses Not on filedocumented in this encounter Care Teams Fruit Or Nut Picker Relationship Specialty Start Date End Date Juma Herrera MD PCP - General 09/25/12 12/07/18 [address] [place] [address] documented as of this encounter
--- OUTSIDE RECORDS SUMMARY | 2022-06-15 07:53 | XMS_ITS | Encounter Summary ---
:1975 Author Organization [facility] Address [address] [place] [address] Care Team Providers Name Role Phone Juma Herrera MD Unavailable Unavailable Juma Herrera MD Primary Care Provider Unavailable Reason for Visit Reason Onset Date Comments Neck Pain 03/27/2019 Encounter Details Date Type Department Care Team Description 03/27/2019 Orders Only [facility] Kj Child in (Primary Dx) Spine Program - Moises Kovacs MD [facility] Scout Perez [address] [facility] [address] [address] Social History Tobacco Use Types [...] Telemedicine Neurology Kj Gloria MD PhD 1 [facility], Level [address] [place], [place] [address] (Wo rk) 09/06/2022 Procedure visit Pain Medicine Catalino Garrett M D [address] [facility] [address] [place] [address] (Wo rk) 09/21/2022 Office Visit Bariatrics Allen Thompson, PALizettC [address] [facility], [address] [place], [place] [address] (Wo rk) documented as of this encounter Visit Diagnoses Diagnosis Neck pain - Primary Cervicalgia documented in this encounter Care Teams Cigar Packing Examiner Relationship Specialty Start Date End Date Juma Herrera MD PCP - General 01/07/19 03/13/21 Juma Herrera MD 12/08/18 [address] [place] [address] documented as of this encounter
--- OUTSIDE RECORDS SUMMARY | 2022-06-15 07:53 | XMS_ITS | Encounter Summary ---
:1975 Author Organization [facility] Address [address] [place] [address] Care Team Providers Name Role Phone Juma Herrera MD Unavailable Unavailable Juma Herrera MD Primary Care Provider Unavailable Reason for Referral Consult (Routine) - Specialty Report Received Specialty Diagnoses / Procedures Referred By Contact Refer craig To Contact Orthopedic Surgery Diagnoses Chronic bilateral low back pain without sciatica Cervicalgia Starr Hart [facility] MARGARITA[facility] [place] [address] [place], [place] [address] Phone: Fax: Referral ID Status Reason Start Expiration Visits Visits Date Date Requested Authorized [id number] Specialty Specialty 03/03/2019 1 1 Report Services Received Required Question Answer Reason for Request: low back pain, neck pain Reason for Visit Reason Comments Shoulder Pain right Prior Authorization (Routine) - Specialty Report Received Specialty Diagnoses / Procedures Referred By Contact Refer craig To Contact Diagnoses Right shoulder pain, unspecified chronicity Starr Hart PA-C [address] [place] [address] Referral ID Status Reason Start Expiration Visits Visits Date Date Requested Authorized [id number] Specialty Specialty 02/20/2019 1 1 Report Services Received Required Encounter Details Date Type Department Care Team Description 03/03/2019 Office Visit [facility] Starr Hart Chr onic bilateral low back pain without sciatica (Primary Dx); Sports Medicine PAVladimir Cervicalgia; Jack - Scout Nontraumatic incomplete tear of right rotator [place] [address] Social History Tobacco Use Types [...] as of this encounter Discharge Diagnoses Diagnosis M54.5 Low back pain-M54.5[ICD-10-CM] G89.29 Other chronic pain-G89.29[ICD-10- CM] documented in this encounter Discharge Disposition Disposition Code Departure Means Destination Auto Discharge documented in this encounter Progress Notes Bee Jackson - 03/03/2019 1300 EDT Right USG SA Injection Bupivacaine 0.5% 10 mL Med lot number [id number] ND number: [id number] Exp date:09/23 Transactional Paralegal: [employer] Drug waste: 10 mL vial, used mL,3 wasted 7 mL Triamcinolone 200 mg/5mL Med lot number:[id number] ND number:[id number] Exp date: 09/22 Transactional Paralegal: [employer] Drug waste:5 mL vial, used 2 mL, wasted 3 mL LIDOCAINE 2 % 20 mL Med lot number:[id number] [facility] number:[id number] Exp date: 10/23 Transactional Paralegal: [employer] Drug waste: 20 mL vial, used 6 mL, wasted 14mL Bee Jackson 03/03/2019 12:52 documented in this encounter Procedure Notes Starr Renee - 03/03/2019 1300 EDT Chief Complaint Patient presents with ??? Shoulder Pain right SUBJECTIVE: Tia Spain is a 43 y.o.female who presents for a ultrasound guided injection into the right subacromial space. Patient has a diagnosis of right shoulder pain with rotator cuff tear. 6 out of 10 pain. She points to the deltoid insertion on the lateral arm as her source of pain. She continues to experience neck pain. She underwent a C6-7 TLESI 09/15/2018 with 80% relief of her neck pain for 3 months. She thinks it did not help with the scapular pain as much. She underwent repeat injection 01/28/2019 but this was not as helpful. She endorses LBP today with pain through b/l glutes. She has been undergoing SI joint injections (unguided) by her PCP. She is interested in further work-up for her on going LBP and treatment recommendations. OBJECTIVE: Tender deltoid insertion. Mild tenderness AC joint. Risks, benefits and alternatives were discussed with the patient and consent was obtained. The finalVerification/time out immediately prior to incision/procedure has been conducted by me and members of the procedural team as appropriate to their involvement in the procedure. The patient???s identity, procedure, and when applicable the: side/site, patient position, [...] activity modification. ?? Patient will follow up as needed for repeat shoulder injections. If shoulder pain returns I would recommend she meet with a surgeon. I will refer her to Spine for futher work-up and discussion about treatment options. ?? I discussed all of the above verbally with patient, no barriers to understanding. The patient indicated understanding and agrees to the above plan. ?? documented in this encounter Plan of Treatment Upcoming Encounters Date Type Specialty Care Team Description 06/25/2022 Telemedicine Neurology Kj Gloria MD PhD 1 [facility] [address] [place], [place] [address] (Jayjay anaya) 09/06/2022 Procedure visit Pain Medicine Catalino Garrett M D [address] [facility] [address] [place] [address] (Jayjay anaya) 09/21/2022 Office Visit Bariatrics Allen Thompson PA-C [address] [facility], [address] [place], [place] [address] (Jayjay anaya) Scheduled Referrals Name Type Priority Associated Order Schedule Diagnoses AMB CONS/FOLLOW UP Outpatient Referral Routine Chronic bilater al Ordered: ORTHOPEDICS low back pain 03/03/2019 without sciatica Cervicalgia documented as of this encounter Visit Diagnoses Diagnosis Chronic bilateral low back pain without sciatica - Primary Cervicalgia Nontraumatic incomplete tear of right ro tator cuff Partial tear of rotator cuff documented in this encounter Care Teams Relocation Associate Relationship Specialty Start Date End Date Juma Herrera MD PCP - General 01/07/19 03/13/21 Juma Herrera MD 12/08/18 [address] [place] [address] documented as of this encounter
--- OUTSIDE RECORDS SUMMARY | 2022-06-15 07:54 | XMS_ITS | Encounter Summary ---
:1975 Author Organization [facility] Address [address] [place] [address] Care Team Providers Name Role Phone Juma Herrera MD Primary Care Provider Unavailable Reason for Referral Referral (Routine) - Closed Specialty Diagnoses / Procedures Referred By Contact Refer red To Contact Diagnoses Low back pain Lumbar radiculopathy Starr Hart PA-C [address] [place] [address] Referral ID Status Reason Start Date Expiration Date Visits V isits Requested Authorized [id number] Closed Specialty 06/02/2014 1 1 Services Required Question Answer Reason for Request: aquatic therapy Encounter Details Date Type Department Care Team Description 06/02/2014 Orders Only [facility] Starr Hart, Low back pain (Primary Dx); Spine Program - ELISABETH Lumbar radic [place] [address] Social History Tobacco Use Types [...] Telemedicine Neurology Kj Gloria MD PhD 1 [facility] 2 [place], [place] [address] (Wo rk) 09/06/2022 Procedure visit Pain Medicine Catalino Garrett M D [address] [facility] [address] [place] [address] (Wo rk) 09/21/2022 Office Visit Bariatrics Allen Thompson, PALizettC [address] [place] [address] [facility], [address] [place], [place] [address] (Wo rk) Scheduled Referrals Name Type Priority Associated Diagnoses Order S chedule AMB CONS/FOLLOW UP Outpatient Referral Routine Low back pain Ordered: PHYSICAL THERAPY Lumbar radiculopathy 09/2013 documented as of this encounter Visit Diagnoses Diagnosis Low back pain - Primary Lumbago Lumbar radiculopathy Thoracic or lumbosacral neuritis or radi culitis, unspecified documented in this encounter Care Teams Spooling Supervisor Relationship Specialty Start Date End Date Juma Herrera MD PCP - General 09/25/12 12/07/18 [address] [place] [address] documented as of this encounter
--- OUTSIDE RECORDS SUMMARY | 2022-06-15 07:54 | XMS_ITS | Encounter Summary ---
:1975 Author Organization [facility] Address [address] [place] [address] Care Team Providers Name Role Phone Juma Herrera MD Primary Care Provider Unavailable Reason for Visit Reason Comments Obesity #2 Encounter Details Date Type Department Care Team Description 04/21/2015 Office Visit [facility] Donald-Radha, Morbid obesity with Bariatric Surgery - ZHOU Luque BMI of 45.0-49.9, [address] adult (CMS-HCC) [address] [place] [address] (Primary Dx) [place] [address] [facility] [phone] [place], [address] [place] [phone] (Wo rk) Social History Tobacco Use Types [...] Sign Reading Time Taken Comments Blood Pressure 138/86 04/21/2015 1358 EDT Pulse - - Temperature - - Respiratory Rate - - Oxygen Saturation - - Inhaled Oxygen Concentration - - Weight 129.6 kg (285 lb 12.8 oz) 04/21/2015 1358 EDT Height 168.5 cm (5' 6.34) 04/21/2015 1358 EDT Body Mass Index 45.66 04/21/2015 1358 EDT documented in this encounter Progress Notes Allen Thompson, MARGARITA - 04/21/2015 1534 EDT Juma Herrera [address] [place] [id number] Herrera : Thank you for referring your patient, Tia Spain, for evaluation and consideration of laparoscopic sleeve gastrectomy surgery. Ms. Spain met with Dr. Ugarte for his initial consultation on 12/03/14. She denies any changes in her medical history or medications since her previous visit. Ms. Spain jeronimo 39 y.o. female with adult-onset obesity. Her comorbidities include depression and GERD. Review of Systems Constitutional: No fevers, chills. HEENT: No upper respiratory infection symptoms Cardiovascular: No chest pain, no shortness of breath, able to walk up a flight of stairs with no dyspnea or pain. Respiratory: No wheezing, +snoring, does not wake up gasping, does not wake up refreshed (sleeps poorly) [place] scale = 5 Renal: No dysuria or difficulty starting stream of urine GI: No nausea or vomiting, no diarrhea or constipation Endocrine: No polyuria or polydipsia Hematology: No excessive bruising or bleeding, no history of DVT Eyes: No acute changes Neurology: No slurred speech, +migraines on propranolol - can be so severe she gets right facial andshoulder paralysis, has peripheral neuropathy in right greater than left feet (not diabetic) Musculoskeletal: + muscle or joint pain in back, neck, knees and feet Allergies/immunologic: No seasonal allergies Current outpatient prescriptions: ACETAMINOPHEN (TYLENOL ORAL), Take 650 mg by mouth as needed., Disp: , Rfl: ; duloxetine (CYMBALTA) 30 mg capsule, Take 90 mg by mouth daily Take with 60mg cap to =90mg dose , Disp: , Rfl: ; HYDROcodone- acetaminophen (NORCO) 5-325 mg per tablet, Take 1 Tab by mouth every 6 hours as needed for Pain., Disp: 60 Each, Rfl: 0; LORazepam (ATIVAN) 0.5 mg tablet, Take 0.5 mgby mouth at bedtime, Disp: , Rfl: methylphenidate (RITALIN SR; METADATE ER; METHYLIN ER) 20 mg SR tablet, Take by mouth 2 times daily.Takes 20 mg every morning, 20 mg every afternoon, 10 mg every evening., Disp: , Rfl: ; oxyCODONE (ROXICODONE) 5 mg immediate release tablet, Take 10 mg by mouth every 4 hours., Disp: , Rfl: ; pregabalin (LYRICA) 50 mg capsule, Take 2 Caps by mouth 3 times daily., Disp: 180 Cap, Rfl: 3 prochlorperazine (COMPAZINE) 10 mg tablet, Take 1 Tab by mouth every 6 hours as needed for Nausea., Disp: 10 Tab, Rfl: 2; PROPRANOLOL HCL (PROPRANOLOL ORAL), Take 120 mg by mouth daily , Disp: , Rfl: ;rizatriptan (MAXALT) 10 mg tablet, Take 10 mg by mouth once as needed. May repeat in 2 hours if needed, Disp: , Rfl: Allergies include: Adhesive; Bee sting; and Codeine Past Surgical History Procedure Laterality Date ??? Spinal fusion L5-S1 Dr. Child 2006 ??? Laminectomy L5-S1 Dr. Bowers 1999 ??? Cholecystectomy ??? Tubal ligation ??? Back surgery family history includes Depression in an other family member; Heart Disease in an other family member; High Blood Pressure in an other family member; Psoriasis in an other family member; Thyroid Disease in an other family member. Patient reports that she quit smoking about 6 years ago. She does not have any smokeless tobacco history on file. She reports that she drinks alcohol. She reports that she does not use illicit drugs. For exercise Tia is walking about 40 minutes at work 3 times per week. Tia met with our program front desk agent for 30 minutes to review preoperative dietary recommendations.She has lost almost 40 pounds since starting in our program and she understands she has made her weight loss goal for surgery. I did consult our front desk agent following her visit with the patient and agreewith her findings and recommendations. On physical examination today, her BP 138/86 mmHg Ht 168.5 cm (66.34) Wt 129.638 kg (285 lb 12.8 oz) BMI 45.66 kg/m2 and Body mass index is 45.66 kg/(m^2).. Also, on physical exam, her Physical Examination: General: No apparent distress, appears stated age HEENT: Moist mucous membranes Neck: No goiter Lungs: Clear to auscultation bilaterally Heart: Regular rate and rhythm Abdomen: Soft, non-distended, non-tender, +bowel sounds Musculoskeletal: Normal range of motion Neurological: Cranial nerves II-XII intact, strength intact in upper and lower extremities, patellarreflex 2+ bilaterally mammo negative 05/16 PAP negative Ms. Spain is an appropriate candidate for laparoscopic sleeve gastrectomy surgery with a BMI of 45 and no life threatening comorbidities. We will need the following things in order to proceed with her evaluation : Routine labs which I will order. If you have any questions or concerns regarding any information in this letter, please do not hesitate to contact me. Tia Spain will be returning to our office in a few weeks for continued medically supervised weight loss in preparation for surgery. Sincerely Yours, MARGARITA Gomez CC: Julia Lux Ana Luisa - 04/21/2015 1525 EDT Medical Nutrition Evaluation-PRE OP NOTE Bariatric Clinic Nutrition Pre-op Visit Visit Number: 4 Desired surgery: Gastric Sleeve Subjective: Its very hard to keep the food logs, exercise and lose weight. I have not been eating breakfast because it has been too hot. I am trying to drink [place] milk but I know it is low in protein Food logs: BetterYou Meal pattern: keeping food logs inconsistently Average caloric intake:~1600 Meal composition:Good Snacking:Pretzel, cookie etc Exercise: Was using the recumbant bike but has had thrombosed hemorrhoid which limited her exercise. Objective: Weight: 285.8 lbs Weight loss from last visit: -9.4 lbs Total weight loss: Weight loss goal: Total Loss in lbs (Weight from Initial Consult - Today's Weight): 39.8 lbs Approximately 16 lbs Surgery Date: Significant Medications and Supplements: Assessment: Patient has made progress towards lifestyle changes Comments: Excellent weight loss. Reviewed her food logs and encouraged her to not skip meals to avoid excess hunger at other meals. Encouraged her current diet and exercise as tolerated. Reviewed program requirements(Support group and class information) with patient and her family present with her today. Plan: Diet Goals: Include protein at least 3 times a day, Keep food records and Calorie goal 1600 Exercise Goals: Increase time to 150 minutes a week as able Weight Loss Goal: Approximately 16 lbs Weight Loss Remaining to Goal: Approximately Reviewed: Food/Activity Record Next Visit: Nutrition class scheduled on 05/18/15 documented in this encounter Plan of Treatment Upcoming Encounters Date Type Specialty Care Team Description 06/25/2022 Telemedicine Neurology Kj Gloria MD PhD 1 [facility] 2 [place], [place] [phone] (Wo rk) 09/06/2022 Procedure visit Pain Medicine Catalino Garrett M D [address] [place] [address] [address] [place] [address] (Wo rk) 09/21/2022 Office Visit Bariatrics Allen Thompson PA-C [address] [facility], [facility], [address] [place], [place] [phone] (Wo rk) documented as of this encounter Results TSH (04/21/2015 15:08 EDT) Pathologist Sig nature TSH 0.51 0.35 - 5.00 uIU/ml [facility]OR[facility] SERVICES Specimen Blood specimen (specimen) - Blood Performing Organization Address City/[facility] Code Phon e Number [facility] [address] [place] [address] SERVICES (ABNORMAL) VITAMIN D (25,OH) (04/21/2015 15:08 EDT) 25OH Vitamin D 26.6 (L) 30 - 100 [facility] Comment: ng/ml CENTER LABORATORY Reference Range: SERVICES Deficient = <10 ng/ml Insufficient = 10-30 ng/ml Sufficient = 30-100 ng/ml Toxic = >100 ng/ml Specimen Blood specimen (specimen) - Blood Performing Organization Address City/[facility]/ZIP Code Phon e Number [facility] [address] [place] [address] SERVICES (ABNORMAL) HEPATIC FUNCTION PANEL (ALB,ALK PHOS,ALT,AST,DBIL,TOT GILBERTO,TOT PROT) (04/21/2015 15:08 EDT) Pathologist Sig nature Albumin 3.8 3.4 - 4.9 g/dl [facility] SERVICES Total Protein 6.4 6.3 - 8.2 g/dl [facility] SERVICES Total Alkaline 56 38 - 126 U/L [facility] Phosphatase LABORATORY SERVICES ALT 21 <53 U/L [facility] SERVICES AST 14 (L) 15 - 46 U/L [facility]ORATORY SERVICES Unconjugated Bilirubin 0.0 0.0 - 1.1 mg/dl [facility] Conjugated Bilirubin 0.0 0.0 - 0.3 mg/dl [facility] Bilirubin, Total <0.5 <1.4 mg/dl [facility] SERVICES Specimen Blood specimen (specimen) - Blood Performing Organization Address City/[facility]/ZIP Code Phon e Number [facility] [address] [place] [address] SERVICES HEMOGLOBIN A1C (04/21/2015 15:08 EDT) Hemoglobin A1C 5.4 % [facility] Comment: LABORATORY Reference Range: SERVICES <5.7% Normal 5.7-6.4% Increased risk for diabetes =>6.5% Diagnostic for diabetes (if confirmed) The A1c goal for non adults in general is <7%. The A1c goal for selected patients may be significantly lower than 7% if this can be achieved without significant hypoglycemia or other adverse effects of treatment. Est Avg Glucose 108 mg/dl [facility] Comment: LABORATORY eAG represents the A1c result expressed S ERVICES as average glucose in mg/dl. Specimen Blood specimen (specimen) - Blood Performing Organization Address City/State/ZIP Code Phon e Number [facility] [address] [place] [address] SERVICES FERRITIN (04/21/2015 15:08 EDT) Pathologist Sig nature Ferritin 32 10 - 291 ng/mL [facility] LABORAT [place]Y SERVICES Specimen Blood specimen (specimen) - Blood Performing Organization Address City/State/ZIP Code Phon e Number [facility] [address] [place] [address] SERVICES CREATININE (04/21/2015 15:08 EDT) Creatinine 0.68 0.52 - 1.[address] [facility] mg/dl LABORATORY SERVICES GFR, Calculated 109 >[address] [facility] Comment: ml/min/1.73m2 LABORATORY eGFR calculated using CKD-EPI equation for SERVICES non Americans. Multiply eGFR by 1.16 for Americans. Specimen Blood specimen (specimen) - Blood Performing Organization Address City/State/ZIP Code Phon e Number [facility] [address] [place] [address] SERVICES (ABNORMAL) HEMAGRAM (04/21/2015 15:08 EDT) Pathologist Sig nature WBC 9.60 4.0 - 12.4 K/cmm [facility] SERVICES RBC 4.81 3.86 - 5.04 M/cmm [facility] SERVICES Hemoglobin 14.4 11.6 - 15.2 gm/dl [facility] SERVICES HCT 42.9 34.9 - 44.4 % [facility] SERVICES MCV 89 81 - 98 [address] [facility] SERVICES MCH 30.1 26.7 - 33.[address] [facility] SERVICES MCHC 33.7 32.1 - 35.9 gm/dl [facility]AT[facility] SERVICES RDW-CV 14.6 11.7 - 14.6 % [facility] SERVICES RDW-SD 45.5 37.6 - 50.[address] [facility] LABORATORY SERVICES PLT 330 (H) 141 - 320 K/cmm [facility]ATORY SERVICES MPV 8.9 7.5 - 11.[address] [facility] SERVICES Specimen Blood specimen (specimen) - Blood Performing Organization Address City/State/ZIP Code Phon e Number [facility] [address] [place] [address] SERVICES VITAMIN B12 (04/21/2015 15:08 EDT) Pathologist Sig nature Vitamin B-12 352 211 - 911 pg/ml [facility] SERVICES Specimen Blood specimen (specimen) - Blood Performing Organization Address City/State/ZIP Code Phon e Number [facility] [address] [place] [address] SERVICES documented in this encounter Visit Diagnoses Diagnosis Morbid obesity with BMI of 45.0-49.9, ad ult (HCC-CMS) (HCC) - Primary Morbid obesity documented in this encounter Historical Medications This list may reflect changes made after this encounter. Medication Sig Dispensed Refills Start Date End Date LORazepam (ATIVAN) 0.5 mg Take 0.5 mg by mouth 0 05/17/2022 tablet at bedtime. added in this encounter Care Teams Pipeline Executive Relationship Specialty Start Date End Date Juma Herrera MD PCP - General 09/25/12 12/07/18 [address] [place] [address] documented as of this encounter
--- OUTSIDE RECORDS SUMMARY | 2022-06-15 07:54 | XMS_ITS | Encounter Summary ---
:1975 Author Organization [facility] Address [address] [place] [address] Care Team Providers Name Role Phone Juma Herrera MD Primary Care Provider Unavailable Reason for Visit Reason Comments Follow-up Neck pain Encounter Details Date Type Department Care Team Description 03/20/2013 Office Visit [facility] Ana Rosa Mendoza Cervico cranial syndrome Spine Program - MD Fermín (Primary Dx) [place] [address] [facility] [address] [facility] [address] [place], [place] [phone] Social History Tobacco Use Types Packs/Day [...] - Inhaled Oxygen Concentration - - Weight 127 kg (280 lb) 03/20/2013 1054 EDT Height 172.7 cm (5' 8) 03/20/2013 1054 EDT Body Mass Index 42.57 03/20/2013 1054 EDT documented in this encounter Progress Notes Ana Rosa Mendoza MD - 03/21/2013 0739 EDT [facility] / FOLLOWUP NOTE - 03/20/2013 PROBLEM LIST: 1. 50% back, 50% right leg pain. A. L5 isthmic spondylolisthesis. B. Status post right L5-S1 discectomy and decompression, 1999 (Elissa). C. L5-S1 decompression and fusion, January 14, 2007 (Mateusz). 2. Obesity. A. BMI 38. 3. 50 pack year smoking history. 4. History of narcotic addiction. A. Sobriety x3 years. 5. Post-traumatic stress disorder. 6. Bipolar disorder. 7. Personality disorder. 8. Right shoulder pain. SUBJECTIVE: The patient returns for routine followup. She states that she has minimal neck pain. Shestill gets right interscapular pain, as well as right arm symptoms in the same distribution as priorto surgery, only much less, and seems to be gradually getting better, although it is worsened with activities. OBJECTIVE: Incision well healed, 5/5 all muscle groups. DIAGNOSTIC STUDIES: X-ray lateral C-spine demonstrates her hardware in good position, fusion consolidating. ASSESSMENT: Patient making appropriate progress. Her fusion appears to be mostly consolidated and onthe right course radiographically. Ongoing arm symptoms are most likely related to intrinsic neural damage from prolonged compression, should gradually get better over a period of about 2 years, so I do not see anything to address with it. She also has peripheral neuropathy in her feet, for which she takes Lyrica, but she does not think it helps her arm very much. PLAN: 1. Continue with current activities as tolerated. 2. Follow up p.r.n. Ana Rosa Mendoza MD 12 43 PM - Ana Rosa Mendoza MD tn Dictation Date: [id number] Ana Rosa Carreno MD - 03/20/2013 1135 EDT This office note has been dictated. ANA ROSA MENDOZA MD documented in this encounter Plan of Treatment Upcoming Encounters Date Type Specialty Care Team Description 06/25/2022 Telemedicine Neurology Ana Rosa Gloria MD PhD 1 [facility], [address] [place], [place] [phone] (Wo rk) 09/06/2022 Procedure visit Pain Medicine Catalino Garrett M D [address] [facility] [address] [place] [address] (Wo rk) 09/21/2022 Office Visit Bariatrics Allen Thompson PA-C [address] [facility], [facility], [address] [place], [place] [address] (Wo rk) documented as of this encounter Visit Diagnoses Diagnosis Cervicocranial syndrome - Primary documented in this encounter Care Teams Bolter Helper Relationship Specialty Start Date End Date Juma Herrera MD PCP - General 09/25/12 12/07/18 [address] [place] [address] documented as of this encounter
--- OUTSIDE RECORDS SUMMARY | 2022-06-15 07:54 | XMS_ITS | Encounter Summary ---
:1975 Author Organization [facility] Address [address] [place] [address] Care Team Providers Name Role Phone Juma Herrera MD Primary Care Provider Unavailable Encounter Details Date Type Department Care Team Description 04/21/2015 Phlebotomy Only [facility] [employer] OperatorBen obesity with - [facility] Outpatient BMI of 45.0-49.9, [facility] adult ([facility]) [place], [place] (Primary Dx) [id number] Social History Tobacco Use Types Packs/Day Years [...] Telemedicine Neurology Kj Gloria MD PhD 1 [facility] Level 2 [place], [place] [address] (Jayjay anaya) 09/06/2022 Procedure visit Pain Medicine Catalino Garrett M D [address] [place] [address] [address] [place] [address] (Jayjay anaya) 09/21/2022 Office Visit Bariatrics Allen Thompson PA-C 111 [facility], Level [address] [place], [place] [address] (Wo rk) documented as of this encounter Procedures Procedure Name Priority Date/Time Associated Comments Diagnosis VITAMIN D (25,OH) Routine 04/21/2015 15:08 Morbid obesity with Results for this EDT BMI of 45.0-49.9, procedure are in adult ([facility]) the results section. COMPLETE BLOOD COUNT Routine 04/21/2015 15:08 Morbid obesity w ith Results for this EDT BMI of 45.0-49.9, procedure are in adult ([facility]) the results section. TSH Routine 04/21/2015 15:08 Morbid obesity with Resu lts for this EDT BMI of 45.0-49.9, procedure are in adult ([facility]) the results section. HEMOGLOBIN A1C Routine 04/21/2015 15:08 Morbid obesity with Re sults for this EDT BMI of 45.0-49.9, procedure are in adult ([facility]) the results section. FERRITIN Routine 04/21/2015 15:08 Morbid obesity with Resu lts for this EDT BMI of 45.0-49.9, procedure are in adult ([facility]) the results section. VITAMIN B12 Routine 04/21/2015 15:08 Morbid obesity with Resu lts for this EDT BMI of 45.0-49.9, procedure are in adult ([facility]) the results section. CREATININE Routine 04/21/2015 15:08 Morbid obesity with Resu lts for this EDT BMI of 45.0-49.9, procedure are in adult ([facility]) the results section. HEPATIC FUNCTION Routine 04/21/2015 15:08 Morbid obesity with Results for this PANEL (ALB,ALK EDT BMI of 45.0-49.9, procedur e are in PHOS,ALT,AST,DBIL,TO adult ([facility]) the results T GILBERTO,TOT PROT) section. documented in this encounter Results TSH (04/21/2015 15:08 EDT) Pathologist Sig nature TSH 0.51 0.35 - 5.00 uIU/ml [facility] LABORATORY SERVICES Specimen Blood specimen (specimen) - Blood Performing Organization Address City/State/[facility] Phon e Number [facility] [address] [place] [address] SERVICES (ABNORMAL) VITAMIN D (25,OH) (04/21/2015 15:08 EDT) 25OH Vitamin D 26.6 (L) 30 - 100 [facility] Comment: ng/ml CENTER LABORATORY Reference Range: SERVICES Deficient = <10 ng/ml Insufficient = 10-30 ng/ml Sufficient = 30-100 ng/ml Toxic = >100 ng/ml Specimen Blood specimen (specimen) - Blood Performing Organization Address [facility] Phon e Number [facility] [address] [place] [address] SERVICES (ABNORMAL) HEPATIC FUNCTION PANEL (ALB,ALK PHOS,ALT,AST,DBIL,TOT GILBERTO,TOT PROT) (04/21/2015 15:08 EDT) Pathologist Sig nature Albumin 3.8 3.4 - 4.9 g/dl [facility] SERVICES Total Protein 6.4 6.3 - 8.2 g/dl [facility] SERVICES Total Alkaline 56 38 - 126 U/L [facility] Phosphatase LABORATORY SERVICES ALT 21 <53 U/L [facility] SERVICES AST 14 (L) 15 - 46 U/L [facility] SERVICES Unconjugated Bilirubin 0.0 0.0 - 1.1 mg/dl [facility] LABORATORY SERVICES Conjugated Bilirubin 0.0 0.0 - 0.3 mg/dl [facility] SERVICES Bilirubin, Total <0.5 <1.4 mg/dl [facility] SERVICES Specimen Blood specimen (specimen) - Blood Performing Organization Address [facility] Phon e Number [facility] [address] [place] [address] SERVICES HEMOGLOBIN A1C (04/21/2015 15:08 EDT) Hemoglobin A1C 5.4 % [facility] Comment: LABORATORY Reference Range: SERVICES <5.7% Normal 5.7-6.4% Increased risk for diabetes =>6.5% Diagnostic for diabetes (if confirmed) The A1c goal for non adults in general is <7%. The A1c goal for selected patients may be significantly lower than 7% if this can be achieved without significant hypoglycemia or other adverse effects of treatment. Est Avg Glucose 108 mg/dl [facility] Comment: LABORATORY eAG represents the A1c result expressed S ERVICES as average glucose in mg/dl. Specimen Blood specimen (specimen) - Blood Performing Organization Address City/State/ZIP Code Phon e Number [facility] [address] [place] [address] SERVICES FERRITIN (04/21/2015 15:08 EDT) Pathologist Sig nature Ferritin 32 10 - 291 ng/mL [facility] LABORAT ORY SERVICES Specimen Blood specimen (specimen) - Blood Performing Organization Address City/State/ZIP Code Phon e Number [facility] [address] [place] [address] SERVICES CREATININE (04/21/2015 15:08 EDT) Creatinine 0.68 0.52 - 1.[address] [facility] mg/dl LABORATORY SERVICES GFR, Calculated 109 >[address] [facility] Comment: ml/min/1.73m2 LABORATORY eGFR calculated using CKD-EPI equation for SERVICES non Americans. Multiply eGFR by 1.16 for Americans. Specimen Blood specimen (specimen) - Blood Performing Organization Address City/State/ZIP Code Phon e Number [facility] [address] [place] [address] SERVICES (ABNORMAL) HEMAGRAM (04/21/2015 15:08 EDT) Pathologist Sig nature WBC 9.60 4.0 - 12.4 K/cmm [facility]ORY SERVICES RBC 4.81 3.86 - 5.04 M/cmm [facility] SERVICES Hemoglobin 14.4 11.6 - 15.2 gm/dl [facility] SERVICES HCT 42.9 34.9 - 44.4 % [facility] SERVICES MCV 89 81 - [address] [facility] SERVICES MCH 30.1 26.7 - 33.[address] [facility] SERVICES MCHC 33.7 32.1 - 35.9 gm/dl [facility] SERVICES RDW-CV 14.6 11.7 - 14.6 % [facility] SERVICES RDW-SD 45.5 37.6 - 50.[address] [facility] LABORATORY SERVICES PLT 330 (H) 141 - 320 K/cmm [facility] SERVICES MPV 8.9 7.5 - 11.[address] [facility] SERVICES Specimen Blood specimen (specimen) - Blood Performing Organization Address City/State/ZIP Code Phon e Number [facility] [address] [place] [address] SERVICES VITAMIN B12 (04/21/2015 15:08 EDT) Pathologist Sig nature Vitamin B-12 352 211 - 911 pg/ml [facility] SERVICES Specimen Blood specimen (specimen) - Blood Performing Organization Address City/State/ZIP Code Phon e Number [facility] [address] [place] [address] SERVICES documented in this encounter Visit Diagnoses Diagnosis Morbid obesity with BMI of 45.0-49.9, ad ult ([facility]) ([facility]) - Primary Morbid obesity documented in this encounter Care Teams Veneer Supervisor Relationship Specialty Start Date End Date Juma Herrera MD PCP - General 09/25/12 12/07/18 [address] [place] [address] documented as of this encounter
--- OUTSIDE RECORDS SUMMARY | 2022-06-15 07:54 | XMS_ITS | Encounter Summary ---
:1975 Author Organization [facility] Address [address] [place] [address] Care Team Providers Name Role Phone Juma Herrera MD Primary Care Provider Unavailable Reason for Referral Consult (Routine) - Specialty Report Received Specialty Diagnoses / Procedures Referred By Contact Refer red To Contact Pain Medicine Diagnoses Lumbago S/P lumbar fusion Lumbar spondylosis Starr Hart PA-C [facility] [address] [place] [address] Phone: Fax: Referral ID Status Reason Start Expiration Visits Visits Date Date Requested Authorized [id number] Specialty Specialty 05/04/2014 1 1 Report Services Received Required Question Answer Reason for Request: consider repeat SI Joint inj ections vs. facet joint injections eferral (Routine) - Closed Specialty Diagnoses / Procedures Referred By Contact Refer red To Contact Diagnoses Lumbago S/P lumbar fusion Lumbar spondylosis Starr Hart PA-C [address] [place] [address] Referral ID Status Reason Start Date Expiration Date Visits V isits Requested Authorized [id number] Closed Specialty 05/04/2014 1 1 Services Required Question Answer Reason for Request: aquatic therapy adiology Services (Routine) - Closed Specialty Diagnoses / Procedures Referred By Contact Refer red To Contact Diagnoses Starr Perla PA-C Procedures L SPINE 4 OR MORE [place] [address] Referral ID Status Reason Start Date Expiration Date Visits Requ ested Visits Authorized [id number] Closed 05/04/2014 1 1 Reason for Visit Reason Comments Back Pain Encounter Details Date Type Department Care Team Description 05/04/2014 Office Visit [facility] Center Starr Hart Lum madhu (Primary Dx); Spine Program - PA-C S/P lumbar f usaiden; [facility] Lumbar spondylosis [address] [place], [place] [id number] Social History Tobacco Use Types Packs/Day Years [...] - Inhaled Oxygen Concentration - - Weight 142.9 kg (315 lb) 05/04/2014 1246 EDT Height 172.7 cm (5' 8) 05/04/2014 1246 EDT Body Mass Index 47.9 05/04/2014 1246 EDT documented in this encounter Discharge Diagnoses Diagnosis 724.2 LUMBAGO[ICD-9-CM] 729.5 PAIN IN LIMB[ICD-9-CM] documented in this encounter Ordered Prescriptions Prescription Sig Dispensed Refills Start Date End Date meloxicam (MOBIC) 7.5 mg Take 1 Tab by mouth 30 Tab 2 02/03/2015 tablet daily. documented in this encounter Discharge Disposition Disposition Code Departure Means Destination Auto Discharge documented in this encounter Progress Notes Starr Hart PA - 05/04/2014 1315 EDT Tia Spain is being seen as a consultation from Dr. Herrera. Chief Complaint Patient presents with ??? Back Pain The encounter diagnosis was Lumbago. HPI is a 38 y.o. female referred by Dr. Juma Herrera. She presents with back and right leg discomfort. She is status post L5-S1 discectomy in 1999 and then subsequent posterior L5-S[place] [address] Child. She had continued discomfort in her lower back and is here today for back pain however she states it is a different type of back pain. She notes that she has had this back pain since her initial injury however it has become more frequent and progressively worsening. The pain is locatedover the bilateral sacroiliac joints and the lower lumbar spine . She notes that it is a daily constant pain worse with standing for 5-10 minutes. Leaning forward [id number] is somewhat alleviating. 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 Within the last couple weeks she has been experiencing a tightness discomfort in the right hip and right lateral thigh just over the knee and not extending any further down the lower extremity. She did physical therapy recently for 2 months and finished last week without any relief. Her primary care provider has given her some sacroiliac joint injections which gave her a few hours of relief during the anesthetic portion but she did not experience any therapeutic relief. Additionally a couple of months ago she underwent b/l lumbar MBB without relief. Patient Active Problem List Diagnosis ??? Lumbar radiculopathy ??? Os trigonum syndrome ??? Tarsal tunnel syndrome of right side ??? Idiopathic peripheral neuropathy ??? Cervicalgia Past Medical History Diagnosis Date ??? Bipolar disorder ??? PTSD (post-traumatic stress disorder) ??? Personality disorder ??? Plantar fasciitis ??? Drug abuse ??? Arthritis ??? Kidney disease ??? Diabetes mellitus ??? Heart disease ??? Hypertension ??? Nervousness(799.21) ??? Eye problem ??? Breathing problem ??? Back pain ??? Numbness ??? Anxiety ??? Depression ??? Headache(784.0) ??? History of substance abuse ??? Tarsal tunnel syndrome ??? Generalized headaches Past Surgical History Procedure Laterality Date ??? Spinal fusion L5-S1 Dr. Child 2006 ??? Laminectomy L5-S1 Dr. Bowers 1999 ??? Cholecystectomy ??? Tubal ligation ??? Back surgery History Substance Use Topics ??? Smoking status: Former Smoker Quit date: 01/13/2009 ??? Smokeless tobacco: Not on file ??? Alcohol Use: Yes Comment: very rarely Family History Problem Relation Age of Onset ??? Depression Other ??? Heart Disease Other ??? Psoriasis Other ??? Thyroid Disease Other ??? High Blood Pressure Other Current Outpatient Prescriptions Medication Sig Dispense Refill ??? ACETAMINOPHEN (TYLENOL ORAL) Take 650 mg by mouth as needed. ??? cholecalciferol, Vitamin D3, 1,000 unit tablet Take 1,000 Units by mouth 2 times daily. ??? duloxetine (CYMBALTA) 30 mg capsule Take 30 mg by mouth daily. Take with 60mg cap to =90mg dose ??? duloxetine (CYMBALTA) 60 mg capsule Take 60 mg by mouth daily. Take with 30mg cap to = 90mg dose ??? HYDROcodone-acetaminophen (NORCO) 5-325 mg per tablet Take 1 Tab by mouth every 6 hours as needed for Pain. 60 Each 0 ??? methylphenidate (RITALIN SR; METADATE ER; METHYLIN ER) 20 mg SR tablet Take by mouth 2 times daily. Takes 20 mg every morning, 20 mg every afternoon, 10 mg every evening. ??? methylphenidate (RITALIN) 10 mg tablet Take 10 mg by mouth daily. ??? methylPREDNISolone (MEDROL DOSEPACK) 4 mg tablet follow package directions 1 Each 0 ??? [place]-3 Fatty Acids-Vitamin E (FISH OIL) 1,000 mg cap Take 1,000 mg by mouth 2 times daily. ??? oxyCODONE (ROXICODONE) 5 mg immediate release tablet Take 10 mg by mouth every 4 hours. ??? pregabalin (LYRICA) 50 mg capsule Take 2 Caps by mouth 3 times daily. 180 Cap 3 ??? prochlorperazine (COMPAZINE) 10 mg tablet Take 1 Tab by mouth every 6 hours as needed for Nausea. 10 Tab 2 ??? rizatriptan (MAXALT) 10 mg tablet Take 10 mg by mouth once as needed. May repeat in 2 hours if needed ??? topiramate (TOPAMAX) 100 mg tablet Take 200 mg by mouth 2 times daily. No current facility-administered medications for this visit. Allergies Allergen Reactions ??? Adhesive Other (See Comments) Skin irritation ??? Bee Sting (Hymenoptera Allergenic Extract) Swelling Fever and vomiting ??? Codeine Hives and Nausea And Vomiting Review of Systems Constitutional: Positive for activity change. HENT: Negative. Eyes: Negative. Respiratory: Negative. Cardiovascular: Negative. Gastrointestinal: Negative. Genitourinary: Negative. Musculoskeletal: Positive for back pain. Skin: Negative. Neurological: Positive for numbness. Psychiatric/Behavioral: Negative. Physical Exam Constitutional: She is oriented to person, place, and time. She appears well- developed and well-nourished. HENT: Head: Normocephalic and atraumatic. Eyes: EOM are normal. Cardiovascular: Normal rate and intact distal pulses. Pulmonary/Chest: Effort normal. Musculoskeletal: Palpable tenderness b/l SI joints, lumbosacrum. Right antalgic gait, ambulates with cane. Patient isable to walk on heels and toes without difficulty. Truncal flexion with fingertips to and degrees oftruncal extension. 5/5 hip flexion, TA, peroneal strength b/l; 4/5 b/l EHL. Pos right FABERS maneuver. Right ext hip rotation elicits right lower back pain. Neurological: She is alert and oriented to person, place, and time. 1 patellar b/l; absent right 1 left achilles reflexes.Decreased sensation to light touch right lateral lower leg. Right Straight leg raise elicits left lower back pain. Left SLR elicits left lower backpain. Negative clonus. Babinski is downgoing. Skin: Skin is warm and dry. No rashes, lesions, or hair zachary. Psychiatric: She has a normal mood and affect. Ortho Exam Neurologic Exam Mental Status Oriented to person, place, and time. Cranial Nerves CN III, IV, Extraocular motions are normal. Diagnostic Imaging: Upright AP, lateral; Recumbent flexion and extension radiographs of the lumbar spine obtained 05/04/14 - L5-S1 posterior fusion with pedicle screws and rods are well positioned without lucency or loosening. Solid lateral bony bridging is also present. Facet hypertrophy is present superior to the fusion with bilateral SI joint degenerative changes. Lumbar MRI without contrast [facility] 02/09/2014- laminectomy at L5-S1 with posterior fusion including pedicle screws and rods. No evidence of recurrent disc herniation. Mild neuroforaminal narrowing bilaterally L4-5 L5-S1. L3-4 mild disc bulging eccentric towards the left with moderate left for narrowing. No evidence of central stenosis. Assessment: 38-year-old female with lower back pain which may be secondary to sacroiliitis. She did have some very short term relief with the anesthetic portion of the injections. Differential diagnosis includes facet hypertrophy above the fusion. The fusion itself looks solid without any defect. She has been experiencing some right lower extremity discomfort however the MRI does not reveal any significant nerve root impingement that would account for her symptoms. At this point it does not appear that there is any surgical lesion. We discussed her options including aquatic therapy, NSAIDs, TENS unit's, steroid injections which may include repeat sacroiliac joint injections versus lumbar facet joint injections. She would also like a letter stating that she can work 5 hour shifts now. At this timeshould like to proceed with the following plan: Other Orders Placed This Visit Procedures ??? L SPINE 4 OR MORE VIEWS Plan: #1 Zo sent her pharmacy #2 aquatic therapy, referral was provided today #3 TENS unit form was filled out today #4 pain consult to consider repeat SI joint injections versus facet joint injections #5 activities as tolerated #6 followup on an as-needed basis Dr. Dean was the attending physician available in the clinic today if needed. A consultation wasnot required. documented in this encounter Plan of Treatment Upcoming Encounters Date Type Specialty Care Team Description 06/25/2022 Telemedicine Neurology Kj Gloria MD PhD 1 [facility] [address] [place], [place] [address] (Jayjay anaya) 09/06/2022 Procedure visit Pain Medicine Catalino Garrett M D [address] [facility] [address] [place] [address] (Jayjay anaya) 09/21/2022 Office Visit Bariatrics Allen Thompson PA-C 111 [facility] venue [facility], [address] [place], [place] [address] (Jayjay anaya) Scheduled Referrals Name Type Priority Associated Order Schedule Diagnoses AMB CONS/FOLLOW UP Outpatient Routine Lumbago Ordered: PHYSICAL THERAPY Referral S/P lumbar fusi on 05/04/2014 Lumbar spondylosis AMB CONS/FOLLOW UP PAIN Outpatient Routine Lumbago Ordered: INTERVENTIONAL Referral S/P lumbar fusio n 05/04/2014 Lumbar spondylosis documented as of this encounter Procedures Procedure Name Priority Date/Time Associated Diagnosis Comme nts L SPINE 4 OR MORE Routine 05/04/2014 13:18 Lumbago Result s for this VIEWS EDT procedure are i n the results section. documented in this encounter Results L SPINE 4 OR MORE VIEWS (05/04/2014 13:18 EDT) Anatomical Region Laterality Modality Other Specimen Narrative [facility] - 10/2013 14:21 EDT LUMBAR SPINE 4 VIEWS May 04, 2014 Indication: Low back pain, right leg pain. Comparison: May 16, 2011 lumbar spine films an d MRI April 05, 2011 and from [facility]. Technique: AP and lateral flexion, neutral and exte nsion views of the lumbar spine were obtained. Findings: There has been previous laminectomy at L 5-S1. Posterior hardware fusion is demonstrated. Gross periprosth etic lucency is not appreciated. Hardware appears intact. Th ere is posterolateral bone graft material present bilaterally which appears to be solidly bridged. A bone graft stimulator is in p lace with its leads at the L5-S1 level. There is minimal rightward convex curvat ure of the lumbar spine with slight lateral subluxation of L3 on L4. No janice- or retrolisthesis is demonstrated. Vertebral body heights are preserved. There is mild disc space narrowing at L3-L4 and more m oderate disc space narrowing at L5-S1 consistent with degenerative di sc disease. Hypertrophic changes of the facet joints are demonstr ated diffusely. There are surgical clips in the right up per quadrant consistent with prior cholecystectomy. Procedure Note 05/04/2014 LUMBAR SPINE 4 VIEWS May 04, 2014 Indication: Low back pain, right leg pain. Comparison: May 16, 2011 lumbar spine films an d MRI April 05, 2011 and from [facility]. Technique: AP and lateral flexion, neutral and exte nsion views of the lumbar spine were obtained. Findings: There has been previous laminectomy at L 5-S1. Posterior hardware fusion is demonstrated. Gross periprosth etic lucency is not appreciated. Hardware appears intact. Th ere is posterolateral bone graft material present bilaterally which appears to be solidly bridged. A bone graft stimulator is in p lace with its leads at the L5-S1 level. There is minimal rightward convex curvat ure of the lumbar spine with slight lateral subluxation of L3 on L4. No janice- or retrolisthesis is demonstrated. Vertebral body heights are preserved. There is mild disc space narrowing at L3-L4 and more m oderate disc space narrowing at L5-S1 consistent with degenerative di sc disease. Hypertrophic changes of the facet joints are demonstr ated diffusely. There are surgical clips in the right up per quadrant consistent with prior cholecystectomy. Performing Organization Address City/State/ZIP Code Phon e Number [facility] documented in this encounter Visit Diagnoses Diagnosis Lumbago - Primary S/P lumbar fusion Arthrodesis status Lumbar spondylosis Lumbosacral spondylosis without myelopat hy documented in this encounter Historical Medications This list may reflect changes made after this encounter. Medication Sig Dispensed Refills Start Date End Date oxyCODONE (ROXICODONE) 5 Take 10 mg by mouth 0 09/07/2015 mg immediate release every 4 hours. tablet added in this encounter Care Teams Shot Man Relationship Specialty Start Date End Date Juma Herrera MD PCP - General 09/25/12 12/07/18 [address] [place] [address] documented as of this encounter
--- OUTSIDE RECORDS SUMMARY | 2022-06-15 07:54 | XMS_ITS | Encounter Summary ---
:1975 Author Organization [facility] Address [address] [place] [address] Care Team Providers Name Role Phone Juma Herrera MD Primary Care Provider Unavailable Reason for Visit Reason Onset Date Comments Appointment Related 09/01/2015 Encounter Details Date Type Department Care Team Description 09/01/[address] [facility] Master Ugarte intment Related General Surgery - MD Marques Disney [address] [facility] [address] [place] [phone] (Wo rk) Social History Tobacco Use [...] on file documented as of this encounter Miscellaneous Notes Telephone Encounter - Dayna Garcia - 09/01/2015 1604 EST Called Tia to confirm surgery check-in time with Dr. Ugarte. Surgery is scheduled on 09/05/15 at 7:25 am please check-in with Registration on the third floor at the [facility] at 6:00 am documented in this encounter Plan of Treatment Upcoming Encounters Date Type Specialty Care Team Description 06/25/2022 Telemedicine Neurology Kj Gloria MD PhD 1 [facility], Level [address] [place], [place] [phone] (Wo rk) 09/06/2022 Procedure visit Pain Medicine Catalino Garrett M D 62 [facility] [address] [place] [address] (Wo rk) 09/21/2022 Office Visit Bariatrics Allen Thompson, PALizettC 111 [facility], [facility], [address] [place], [place] [address] (Wo rk) documented as of this encounter Visit Diagnoses Not on filedocumented in this encounter Care Teams Hide Washer Relationship Specialty Start Date End Date Juma Herrera MD PCP - General 09/25/12 12/07/18 [address] [place] [address] documented as of this encounter
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
--- OUTSIDE RECORDS SUMMARY | 2022-06-15 07:54 | XMS_ITS | Encounter Summary ---
:1975 Author Organization [facility] Address [address] [place] [address] Care Team Providers Name Role Phone Juma Herrera MD Primary Care Provider Unavailable Reason for Visit Reason Onset Date Comments Advice Only 09/07/2015 Encounter Details Date Type Department Care Team Description 09/07/2015 Telephone [facility] Bariatric Lux Og RD Advice Only Surgery - [place] [address] [facility] [address] [place] [phone] (Wo rk) Social History Tobacco Use [...] Telephone Encounter - Lux Dumont, THOMAS - 09/07/2015 0804 EST BARIATRIC SURGERY POST-OP CALL NOTE Date of Surgery:09/05/2015 Date of Discharge:09/07/2015 Surgeon: Shanel Type of Surgery: Gastric Sleeve Patient Complains of: No complaints or problems Patient Tolerating: Adequate Fluids Plan: Plan to remain on Caffeine-free,sugar-free clear liquids until 09/10 and advance to bariatric full liquids on 09/11. She has been using Chocolate Premier shakes on her pre-op liquid diet and plans to continue those shakes on her post- op full liquid diet. Reviewed diet progression and need for at least 32-48 oz of fluids a day. Call this designer/writer with any questions/concerns. Return to Clinic:09/14/[address] 09/07/2015 8:04 documented in this encounter Plan of Treatment Upcoming Encounters Date Type Specialty Care Team Description 06/25/2022 Telemedicine Neurology Kj Gloria MD PhD 1 [facility] Level 2 [place], [place] [phone] (Jayjay anaya) 09/06/2022 Procedure visit Pain Medicine Catalino Garrett M D [address] [facility] [address] [place] [address] (Jayjay anaya) 09/21/2022 Office Visit Bariatrics Allen Thompson PA-C 111 [facility], [facility], Level [address] [place], [place] [address] (Jayjay anaya) documented as of this encounter Visit Diagnoses Not on filedocumented in this encounter Care Teams Mattress Inspector Relationship Specialty Start Date End Date Juma Herrera MD PCP - General 09/25/12 12/07/18 [address] [place] [address] documented as of this encounter
--- OUTSIDE RECORDS SUMMARY | 2022-06-15 07:54 | XMS_ITS | Encounter Summary ---
:1975 Author Organization [facility] Address [address] [place] [address] Care Team Providers Name Role Phone Juma Herrera MD Primary Care Provider Unavailable Reason for Visit Reason Comments Pre-op Exam pre op Encounter Details Date Type Department Care Team Description 06/06/2015 Office Visit [facility] Donald-Radha, Morbid obesity with Bariatric Surgery - ZHOU Luque BMI of 45.0-49.9, [address] adult (CMS-HCC) [address] [place] [address] (Primary Dx) [place] [address] [facility] [phone] [place], Level [address] [place] [address] (Wo rk) Social History Tobacco [...] - Inhaled Oxygen Concentration - - Weight 129.9 kg (286 lb 6.4 oz) 06/06/2015 1550 EDT Height 168.5 cm (5' 6.34) 06/06/2015 1550 EDT Body Mass Index 45.75 06/06/2015 1550 EDT documented in this encounter Discharge Diagnoses Diagnosis E66.01 Morbid (severe) obesity due to ex cess calories-E66.01[ICD-10-CM] Z68.42 Body mass index (BMI) 45.0-49.9, adult-Z68.42[ICD-10-CM] documented in this encounter Progress Notes Apolonia Holcomb - 06/08/2015 1306 EDT Received completed blended diet homework 06/07. Reviewed with minimal corrections needed. Met daily protein and hydration goals utilizing correct dietary consistencies. Apolonia Holcomb, RD, CD llen Aguilar PA - 06/06/2015 1606 EDT 06/06/2015 SUBJECTIVE: Tia returns to our office today for continued medically supervised weight loss in preparation for laparoscopic sleeve gastrectomy surgery. She is a 39 y.o. female with adult-onset obesity. Her comorbidities include depression and GERD. Otherwise, she denies any changes to her medical history or medications since his previous visit. She has attended both classes and going to support group tonight. Tia met with our program dietitian for 30 minutes to review preoperative dietary recommendations.I consulted with the dietitian following her visit with the patient and agree with her findings and recommendations. OBJECTIVE: On physical examination today, her Ht 168.5 cm (66.34) Wt 129.91 kg (286 lb 6.4 oz) BMI 45.76 kg/m2 and Body mass index is 45.76 kg/(m^2).. ASSESSMENT AND PLAN: Tia will return to our office in a few weeks for continued medically-supervised weight loss in preparation for surgery. She understands that: Has made weight loss goal, D low at26, will schedule for surgery. MARGARITA Gomez Apolnoia Holcomb - 06/06/2015 1558 EDT Medical Nutrition Evaluation-PRE OP NOTE Bariatric Clinic Nutrition Pre-op Visit Visit Number: 6 Desired surgery: Gastric Sleeve Subjective: I logged my liquid trial in my food log. I got a better protein shake today, the Premiere shake from [employer], so I'll use that when I do the liquid diet before my surgery. The blended homework confusedme so I haven't done it yet. Food logs: [employer] [place] Meal pattern: good Average caloric intake: 1,600/day. 900kcal and 40-60gm daily with full liquid diet trial Meal composition: good, some days low in fruit Snacking: minimum, few pretzels Exercise: walking at work for 5+ hours 3 nights week plus recumbent bike 10-15 mins 2x/week Objective: Weight: 286.4 lbs Weight loss from last visit: 0 lbs Total weight loss: Weight loss goal: Total Loss in lbs (Weight from Initial Consult - Today's Weight): (!) 39.2 lbs Approximately 16 lbs Surgery Date: Significant Medications and Supplements: Flfaithtonkari Pace MVT Assessment: Patient has made progress towards lifestyle changes and met weight loss requirement for surgery. Completed full liquid diet trial, though advised need for at least 50gm Protein daily which she feels confident will be achieved in the future using the higher protein shake she purchased today. Reviewed in structions for the blended diet homework and she plans to completed this tonight and drop it off at clinic tomorrow for RD to review. Plan: Diet Goals: Include protein at least 3 times a day, Keep food records, Add 2 servings of fruit each day and Calorie goal 1,400-1,600/day. Plans to attend Bariatric Support Group this evening Exercise Goals: increase exercise as able Weight Loss Goal: Approximately 16 lbs Weight Loss Remaining to Goal: Approximately met Reviewed: Food/Activity Record and Full Liquid Diet Trial Next Visit: Pre-op follow-up visit documented in this encounter Plan of Treatment Upcoming Encounters Date Type Specialty Care Team Description 06/25/2022 Telemedicine Neurology Kj Gloria MD PhD 1 [facility], Level [address] [place], [place] [phone] (Wo rk) 09/06/2022 Procedure visit Pain Medicine Catalino Garrett M D [address] [facility] [address] [place] [address] (Wo rk) 09/21/2022 Office Visit Bariatrics Allen Thompson PALizettC 111 [facility], [facility], Level [address] [place], [place] [address] (Wo rk) documented as of this encounter Visit Diagnoses Diagnosis Morbid obesity with BMI of 45.0-49.9, ad ult ([facility]) ([facility]) - Primary Morbid obesity documented in this encounter Care Teams Group Worker Relationship Specialty Start Date End Date Juma Herrera MD PCP - General 09/25/12 12/07/18 [address] [place] [address] documented as of this encounter
--- OUTSIDE RECORDS SUMMARY | 2022-06-15 07:54 | XMS_ITS | Encounter Summary ---
:1975 Author Organization [facility] Address [address] [place] [address] Care Team Providers Name Role Phone Juma Herrera MD Primary Care Provider Unavailable Encounter Details Date Type Department Care Team Description 05/10/2014 Hospital Encounter [facility] Ginny Unknown, Provider, Luigi Epperson MD [address] [facility] [phone] [place] [address] (Work) [phone] Social History Tobacco Use Types Packs/Day Years [...] 3 2011 capsule mouth 3 times daily. ACETAMINOPHEN (TYLENOL Take 650 mg by 0 09/07/2015 ORAL) mouth as needed. cholecalciferol, Vitamin Take 1,000 Units 0 02/03/2015 D3, 1,000 unit tablet by mouth 2 times daily. duloxetine (CYMBALTA) 60 mg Take 60 mg by 0 02/03/2015 capsule mouth daily. Take with 30mg cap to = 90mg dose HYDROcodone-acetaminophen Take 1 Tab by 60 Each 0 014 08/15/2015 (NORCO) 5-325 mg per tablet mouth every 6 hours as needed for Pain. meloxicam (MOBIC) 7.5 mg Take 1 Tab by 30 Tab 2 05/04/20 14 02/03/2015 tablet mouth daily. methylphenidate (RITALIN) Take 10 mg by 0 02/03/2015 10 mg tablet mouth daily. methylPREDNISolone (MEDROL follow package 1 Each 0 09/1002/03/2015 DOSEPACK) 4 mg tablet directions [place]-3 Fatty Acids-Vitamin Take 1,000 mg by 0 02/03/2015 E (FISH OIL) 1,000 mg cap mouth 2 times daily. oxyCODONE (ROXICODONE) 5 mg Take 10 mg by 0 09/07/2015 immediate release tablet mouth every 4 hours. prochlorperazine Take 1 Tab by 10 Tab 2 09/29/201208/31 (COMPAZINE) 10 mg tablet mouth every 6 hours as needed for Nausea. rizatriptan (MAXALT) 10 mg Take 10 mg by 0 12/18/2021 tablet mouth once as needed. May repeat in 2 hours if needed topiramate (TOPAMAX) 100 mg Take 200 mg by 0 02/03/2015 tablet mouth 2 times daily. documented as of this encounter Discharge Disposition Disposition Code Departure Means Destination Home or Self Detention documented in this encounter Plan of Treatment Upcoming Encounters Date Type Specialty Care Team Description 06/25/2022 Telemedicine Neurology Kj Gloria MD PhD 1 [facility], Level [address] [place], [place] [address] (Jayjay anaya) 09/06/2022 Procedure visit Pain Medicine Catalino Garrett M D [address] [facility] [address] [place] [address] (Jayjay anaya) 09/21/2022 Office Visit Bariatrics Allen Thompson PA-C [address] [place] [address] [facility], [facility], [address] [place], [place] [address] (Wo rk) documented as of this encounter Visit Diagnoses Not on filedocumented in this encounter Care Teams Paper Cup Machine Tender Relationship Specialty Start Date End Date Juma Herrera MD PCP - General 09/25/12 12/07/18 [address] [place] [address] documented as of this encounter
--- OUTSIDE RECORDS SUMMARY | 2022-06-15 07:54 | XMS_ITS | Encounter Summary ---
:1975 Author Organization [facility] Address [address] [place] [address] Care Team Providers Name Role Phone Juma Herrera MD Primary Care Provider Unavailable Reason for Visit Reason Onset Date Comments Appointment Related 01/14/2015 Encounter Details Date Type Department Care Team Description 01/14/2015 Telephone [facility] Master Ugarte intment Related Bariatric Surgery - MD Marques Kerrick 353 [facility] [address] [place] [phone] (Wo rk) Social History Tobacco Use [...] this encounter Miscellaneous Notes Telephone Encounter - Loretta Bartlett - 01/14/2015 1410 EDT Called Tia Eileen Grabiel to remind him/her of their EGD scheduled on January 18, 2015 @ 8:00am Please check in with Registration on the third floor at the [facility] at 7:00am (ONE HOUR prior to exam.) To ensure a successful exam, patient was reminded to have NO FOOD OR DRINK at all after midnight, And that they MUST have a ride to and from the procedure. You are also scheduled for an UGI after for EGD LM ON VM documented in this encounter Plan of Treatment Upcoming Encounters Date Type Specialty Care Team Description 06/25/2022 Telemedicine Neurology Kj Gloria MD PhD 1 [facility], Level 2 [place], [place] [address] (Wo rk) 09/06/2022 Procedure visit Pain Medicine Catalino Garrett M D [address] [facility] [address] [place] [address] (Wo rk) 09/21/2022 Office Visit Bariatrics Allen Thompson, ZHOUC 111 [facility], [facility], Level 5 [place], [place] [address] (Wo rk) documented as of this encounter Visit Diagnoses Not on filedocumented in this encounter Care Teams Pay Station Attendant Relationship Specialty Start Date End Date Juma Herrera MD PCP - General 09/25/12 12/07/18 [address] [place] [address] documented as of this encounter
--- OUTSIDE RECORDS SUMMARY | 2022-06-15 07:54 | XMS_ITS | Encounter Summary ---
:1975 Author Organization [facility] Address [address] [place] [address] Care Team Providers Name Role Phone Juma Herrera MD Primary Care Provider Unavailable Reason for Visit Reason Onset Date Comments Neck Pain 09/07/2013 Encounter Details Date Type Department Care Team Description 09/07/2013 Telephone [facility] Spine Mateusz, Kj rizo, Neck Pain Program - Scout MEHTA [address] [place], [place] [address] [place] [address] [phone] (Wo rk) Social History Tobacco Use [...] this encounter Miscellaneous Notes Telephone Encounter - Becki Rea RN - 09/08/2013 5718 EST Pt calling stating that 2 weeks ago she developed neck and arm pain just like she had prior to surgery. She c/o thumb, index, and middle finger being numb and her arm being weak. She does not recall doing anything that would cause this pain. Appointment made to see one of the P.A's. elephone Encounter - Rosalino Carolina - 09/07/2013 1613 EST Tia phoned to report she has been having progressively worsening neck and right arm pain with numbness in her right thumb, index, and middle fingers. Rosalino Carolina documented in this encounter Plan of Treatment Upcoming Encounters Date Type Specialty Care Team Description 06/25/2022 Telemedicine Neurology Kj Gloria MD PhD 1 [facility], Level 2 [place], [place] [address] (Wo rk) 09/06/2022 Procedure visit Pain Medicine Catalino Garrett M D [address] [facility] [address] [place] [address] (Wo rk) 09/21/2022 Office Visit Bariatrics Allen Thompson PA-C [address] [place] [facility], [facility], Level 5 [place], [place] [address] (Wo rk) documented as of this encounter Visit Diagnoses Not on filedocumented in this encounter Care Teams Miller Kiln Dried Salt Relationship Specialty Start Date End Date Juma Herrera MD PCP - General 09/25/12 12/07/18 [address] [place] [address] documented as of this encounter
--- OUTSIDE RECORDS SUMMARY | 2022-06-15 07:54 | XMS_ITS | Encounter Summary ---
:1975 Author Organization [facility] Address [address] [place] [address] Care Team Providers Name Role Phone Juma Herrera MD Primary Care Provider Unavailable Reason for Referral Radiology Services (Routine/Next Available) - Closed Specialty Diagnoses / Procedures Referred By Contact Refer red To Contact Diagnoses Neck pain Kj Child MD Procedures CERVICAL SPINE 1 VIEW [facility] [place] [employer] [address] Referral ID Status Reason Start Date Expiration Date Visits Requ ested Visits Authorized [id number] Closed 03/17/2013 1 1 Encounter Details Date Type Department Care Team Description 03/12/2013 Orders Only [facility] Kj Child pa in (Primary Dx) Spine Program - Moises Kovacs MD [address] [place], [place] [address] [address] Social History Tobacco Use Types [...] Telemedicine Neurology Kj Gloria MD PhD 1 [facility], Level 2 [place], [place] [address] (Wo rk) 09/06/2022 Procedure visit Pain Medicine Catalino Garrett M D [address] [place] [address] (Wo rk) 09/21/2022 Office Visit Bariatrics Allen Thompson PA-C [address] [facility], [facility], Level 5 [place] [address] (Jayjay rk) documented as of this encounter Procedures Procedure Name Priority Date/Time Associated Diagnosis Comme nts CERVICAL SPINE 1 Routine 03/20/2013 10:50 Neck pain Results for this VIEW EDT procedure are i n the results section. documented in this encounter Results CERVICAL SPINE 1 VIEW (03/20/2013 10:50 EDT) Anatomical Region Laterality Modality Other Specimen Narrative [facility] - 03/02 13:12 EDT CERVICAL SPINE ONE VIEW March 20, 2013 Indication: Neck pain. Status post C6-C7 anterior de compression and fusion. Comparison: December 09, 2012. Technique: Lateral view of the cervical spine was o btained. Findings: There has been prior anterior discectomy and spinal fusion at C5-C6 and C6-C7. Metallic plate and screws slime ear intact. No periprosthetic lucency is identified. There is incomple tely incorporated interbody bone graft present at this level. Craniocervical and atlantoaxial alignmen t appear anatomic on this single projection. There is mild anterol isthesis of C7 on T1. Vertebral body heights are preserved. Sp ondylosis at C5-C6 and C7-T1 does not appear significantly changed fr om the prior study. Procedure Note 03/20/2013 CERVICAL SPINE ONE VIEW March 20, 2013 Indication: Neck pain. Status post C6-C7 anterior de compression and fusion. Comparison: December 09, 2012. Technique: Lateral view of the cervical spine was o btained. Findings: There has been prior anterior discectomy and spinal fusion at C5-C6 and C6-C7. Metallic plate and screws slime ear intact. No periprosthetic lucency is identified. There is incomple tely incorporated interbody bone graft present at this level. Craniocervical and atlantoaxial alignmen t appear anatomic on this single projection. There is mild anterol isthesis of C7 on T1. Vertebral body heights are preserved. Sp ondylosis at C5-C6 and C7-T1 does not appear significantly changed fr om the prior study. Performing Organization Address City/State/ZIP Code Phon e Number [facility] documented in this encounter Visit Diagnoses Diagnosis Neck pain - Primary Cervicalgia documented in this encounter Care Teams Drum Cleaner Relationship Specialty Start Date End Date Juma Herrera MD PCP - General 09/25/12 12/07/18 [address] [place] [address] documented as of this encounter
--- OUTSIDE RECORDS SUMMARY | 2022-06-15 07:54 | XMS_ITS | Encounter Summary ---
:1975 Author Organization [facility] Address [address] [place] [address] Care Team Providers Name Role Phone Alejandra Trevino MD Primary Care Provider Unavailable Encounter Details Date Type Department Care Team Description 05/10/2014 Results Only [facility] Dariela Stiles MD Laboratory Services - [address] [place] [address] [place] [address] Social History Tobacco Use Types Packs/Day Years [...] Neurology Kj Gloria MD PhD 1 [facility] 2 [place], [place] [address] (Jayjay anaya) 09/06/2022 Procedure visit Pain Medicine Catalino Garrett M D 62 [facility] [address] [place] [address] (Wo héctor) 09/21/2022 Office Visit Bariatrics Allen Thompson, PALizettC [address] venue [facility], [facility], Level [address] [place], [place] [address] (Wo rk) documented as of this encounter Procedures Procedure Name Priority Date/Time Associated Diagnosis Comme nts SURGICAL PATHOLOGY Routine 05/10/2014 9:28 EDT Re sults for this procedure are i n the results section. documented in this encounter Results SURGICAL PATHOLOGY (05/10/2014 9:28 EDT) Pathology Report: SURGICAL PATHOLOGY REPORT RONNA IBRAHIM Reports generated via electronic interface contain efrain ginal data; LAB however they are lacking the format of the original re port. Caution should be taken when reading/interpreting unfo rmatted reports. Name: ? CORETTA TIA Arellano ? Accession #: ? [id number] ? : ? 1975 (Age: 38) ??F ? Collect Date: ? 05/10/2014 ? Location: ? [facility] ? Receive Date: ? 014 ? Provider: DARIELA STILES MD Copy to: ALEJANDRA TREVINO MD ? Final Pathologic Diagnosis: ENDOMETRIUM, BIOPSY: - ??Disordered proliferative endometrium. - ??No cytologic atypia identified. Document reviewed and electronically signed by: JAYLAN RUIZ MD Report ??Date: 05/12/2014 17:08 By the signature above, the attending physician certif ies that he/she has personally conducted a gross and/or microscopic examin ation of the described specimens and rendered or confirmed the above diagnosi s. Specimen(s) Received: Endometrial bx Clinical History: Menorrhagia, LMP: 04/16/14, control BTL Gross Description: ? Received in formalin labelled with proper patient identification (initials C, S) and endometrial biopsy is an aggregate of bloo d-tinged mucus and red-brown tissue (2.5 x 2.0 x 1.0 cm). Submitted in to to in blocks 1-2. Abeba Mcginnis 05/11/2014 10:57 AM End of Report Specimen Performing Organization Address City/State/ZIP Code Phon e Number [facility] [address] [place] [address] [facility] [address] [place] [address] documented in this encounter Visit Diagnoses Not on filedocumented in this encounter Care Teams Emt/Dispatcher Relationship Specialty Start Date End Date Alejandra Trevino MD PCP - General 09/25/12 12/07/18 [address] [place] [address] documented as of this encounter
--- OUTSIDE RECORDS SUMMARY | 2022-06-15 07:54 | XMS_ITS | Encounter Summary ---
:1975 Author Organization [facility] Address [address] [place] [address] Care Team Providers Name Role Phone Juma Herrera MD Primary Care Provider Unavailable Reason for Visit Reason Onset Date Comments Results 07/09/2014 Encounter Details Date Type Department Care Team Description 07/09/2014 Telephone [facility] - Korey Justice , Results [facility] Interventiona l Pain [address] [place] [address] Social History Tobacco Use Types Packs/Day [...] this encounter Miscellaneous Notes Telephone Encounter - Korey Justice RN - 07/13/2014 1244 EST RN left third message to call with relief day of injection. elephone Encounter - Korey Justice RN - 07/12/2014 1437 EST RN made 2nd call to patient for results info. Left message to call with this info. Telephone Encounter - Korey Justice RN - 07/09/2014 1108 EST RN called patient and left a message to call with hours and % of relief. Date and type of procedure:07/08/14 bl SIJ Provider:Alejandra Hours of relief: % of relief: Next appointment: prn Telephone Encounter - Korey Justice RN - 07/09/2014 1108 EST Message copied by KOREY JUSTICE on SatJul 09, 2014 1108 ------ Message from: RL FLEMING Created: [facility] Jul 08, 2014 1441 Regarding: result Contact: Facet Diagnostic Block done on: 07/08/14 Provider: alejandra Levels: niko martinez Call back number:[phone] ------ documented in this encounter Plan of Treatment Upcoming Encounters Date Type Specialty Care Team Description 06/25/2022 Telemedicine Neurology Kj Gloria MD PhD 1 [facility] 2 [place], [place] [address] (Jayjay anaya) 09/06/2022 Procedure visit Pain Medicine Catalino Garrett M D [address] [place] [address] [address] [place] [address] (Wo héctor) 09/21/2022 Office Visit Bariatrics Allen Thompson PA-C 111 [facility], [facility], Level [address] [place], [place] [address] (Jayjay anaya) documented as of this encounter Visit Diagnoses Not on filedocumented in this encounter Care Teams Unit Manager Rn Relationship Specialty Start Date End Date Juma Herrera MD PCP - General 09/25/12 12/07/18 [address] [place] [address] documented as of this encounter
--- OUTSIDE RECORDS SUMMARY | 2022-06-15 07:54 | XMS_ITS | Encounter Summary ---
:1975 Author Organization [facility] Address [address] [place] [address] Care Team Providers Name Role Phone Juma Herrera MD Primary Care Provider Unavailable Reason for Visit Reason Onset Date Comments Other 10/25/2014 patient said her cou nseler hasn't heard from Yamilka. Patient would like a call. Encounter Details Date Type Department Care Team Description 10/25/2014 Telephone [facility] Yamilka Oneal Othe r (patient said her Bariatric Surgery - PhD counseler hasn't heard Yoseph Rojo from Yamilka. Patient [address] would like a call.) [place] [address] [place], [place] [phone] [address] Social History Tobacco Use Types Packs/Day [...] this encounter Miscellaneous Notes Telephone Encounter - Shweta Garcia - 10/25/2014 1601 EST Spoke with Tia, she was advised that Dr. Oneal was out town, she was offered to leave a messageon Dr. Gainse voice mail documented in this encounter Plan of Treatment Upcoming Encounters Date Type Specialty Care Team Description 06/25/2022 Telemedicine Neurology Kj Gloria MD PhD 1 [facility] Level 2 [place], [place] [address] (Wo rk) 09/06/2022 Procedure visit Pain Medicine Catalino Garrett M D [address] [facility] [address] [place] [address] (Wo rk) 09/21/2022 Office Visit Bariatrics Allen Thompson PA-C 111 [facility], [facility], Level [address] [place], [place] [address] (Wo rk) documented as of this encounter Visit Diagnoses Not on filedocumented in this encounter Care Teams Radiologic Technologist Relationship Specialty Start Date End Date Juma Herrera MD PCP - General 09/25/12 12/07/18 [address] [place] [address] documented as of this encounter
--- OUTSIDE RECORDS SUMMARY | 2022-06-15 07:54 | XMS_ITS | Encounter Summary ---
:1975 Author Organization [facility] Address [address] [place] [address] Care Team Providers Name Role Phone Juma Herrera MD Primary Care Provider Unavailable Reason for Visit Reason Comments Obesity Class Encounter Details Date Type Department Care Team Description 05/16/2015 Office Visit [facility] Yamilka Oneal, Unsp ecified episodic Bariatric Surgery - PhD mood disorder (Primary [place] [address]) [address] [place] [address] [place], [place] [phone] [address] Social History Tobacco Use Types Packs/Day [...] - Inhaled Oxygen Concentration - - Weight 129.3 kg (285 lb) 05/16/2015 1007 EDT Height 168.5 cm (5' 6.34) 05/16/2015 1007 EDT Body Mass Index 45.53 05/16/2015 1007 EDT documented in this encounter Progress Notes Yamilka Oneal, PhD - 05/16/2015 1417 EDT Behavioral Skills Group Progress Note Name: Tia Spain : 1975 Procedure: 1.5 hour Psychoeducational Group S: The focus of this session was on introducing the behavioral skills necessary for weight loss and weight loss maintenance after surgery. Educational information was provided on topics including: energy balance, ???mindless margin,?? portion control, overcoming emotional eating, and increasing physical activity. Patients were encouraged to reflect on how they can reengineer their lifestyles, incorporating these strategies for long-term success with weight loss maintenance. This group also focused on the importance of setting realistic and achievable goals. O: Vitals: Height 168.5 cm (66.34), weight 129.275 kg (285 lb). A: Level of Participation: Highly engaged Diagnosis: 296.90 P: Follow-up with behavioral support at patient???s or team???s request. Yamilka Oneal, PHD Licensed Psychologist - Doctorate 05/16/2015 14:18 documented in this encounter Plan of Treatment Upcoming Encounters Date Type Specialty Care Team Description 06/25/2022 Telemedicine Neurology Kj Gloria MD PhD 1 [facility] 2 [place], [place] [address] (Jayjay anaya) 09/06/2022 Procedure visit Pain Medicine Catalino Garrett M D 62 [facility] [address] [place] [address] (Jayjay anaya) 09/21/2022 Office Visit Bariatrics Allen Thompson PA-C 111 [facility] venue [facility], [facility], Level 5 [place], [place] [address] (Jayjay anaya) documented as of this encounter Visit Diagnoses Diagnosis Unspecified episodic mood disorder - Marlena sabino documented in this encounter Care Teams World Designer Relationship Specialty Start Date End Date Juma Herrera MD PCP - General 09/25/12 12/07/18 [address] [place] [address] documented as of this encounter
--- OUTSIDE RECORDS SUMMARY | 2022-06-15 07:54 | XMS_ITS | Encounter Summary ---
:1975 Author Organization [facility] Address [address] [place] [address] Care Team Providers Name Role Phone Juma Herrera MD Primary Care Provider Unavailable Unknown, Provider Primary Care Provider Juma Herrera MD Unavailable Unavailable Juma Herrera MD Primary Care Provider Unavailable Shonda Sánchez BUYER ASSISTANT [facility] [phone] Encounter Details Date Type Department Care Team Description 01/07/2013 Documentation Visit [facility] Jin Graves MD Neurology - S [id number] [place] [address] [phone] [address] (Wo rk) Social History Tobacco Use Types [...] documented as of this encounter Progress Notes Abrahan Graves MD - 01/12/2013 1031 EDT [facility] PROGRESS/FOLLOWUP NOTE - 01/07/2013 COLLE[place] DEAN: Skin biopsy. INDICATIONS: Small fiber neuropathy. The patient presents for a skin biopsy for evaluation of small fiber neuropathy. Procedure was explained to the patient and informed consent obtained. The patient placed in supine position. Three skin biopsies were performed involving the right lateral foot, right lateral calf and right lateral thigh,0.25% bupivacaine used for local anesthesia. Disposable 3 mm circular punch was used to obtain skin biopsies. Hemostasis was secured. No complication observed. The patient was discharged in stable condition. Electronically Signed by Abrahan Graves MD 01/12/2013 17:01 Abrahan Graves MD - Abrahan Graves MD - Job ID: SM Doc ID: [id number] Ext Doc ID: [id number] cc: Zachery Walters MD documented in this encounter Plan of Treatment Upcoming Encounters Date Type Specialty Care Team Description 06/25/2022 Telemedicine Neurology Kj Gloria MD PhD 1 [facility] Level 2 [place], [place] [address] (Jayjay anaya) 09/06/2022 Procedure visit Pain Medicine Catalino Garrett M D [address] [place] [address] [address] [place] [address] (Jayjay anaya) 09/21/2022 Office Visit Bariatrics Allen Thompson PA-C 111 [facility] [address] [place], [place] [address] (Jayjay anaya) documented as of this encounter Visit Diagnoses Not on filedocumented in this encounter Additional Health Concerns Infection Onset Date Last Indicated Resolved Time COVID-19 08/15/2021 08/15/2021 09/04/2021 22:15 EST documented as of this encounter Care Teams Housekeeper Head Relationship Specialty Start Date End Date Juma Herrera MD PCP - General 09/25/12 12/07/18 [address] [place] [address] Unknown, Provider, PCP - General 12/08/18 01/06/19 Juma Herrera MD PCP - General 01/07/19 03/13/21 Shonda Sánchez NP PCP - General 03/14/21 01/31/[address] [place] [phone] [facility] PCP - General 02/01/22 [address] [place], [place] [id number] Juma Herrera MD 12/08/18 [address] [place] [address] documented as of this encounter
--- OUTSIDE RECORDS SUMMARY | 2022-06-15 07:54 | XMS_ITS | Encounter Summary ---
:1975 Author Organization [facility] Address [address] [place] [address] Care Team Providers Name Role Phone Juma Herrera MD Primary Care Provider Unavailable Reason for Visit Reason Comments Back Pain low back pain Consult (Routine) - Specialty Report Received Specialty Diagnoses / Procedures Referred By Contact Refer red To Contact Pain Medicine Diagnoses Lumbago S/P lumbar fusion Lumbar spondylosis Starr Hart PA-C [facility] [address] [place] [phone] Phone: Fax: Referral ID Status Reason Start Expiration Visits Visits Date Date Requested Authorized [id number] Specialty Specialty 05/04/2014 1 1 Report Services Received Required Encounter Details Date Type Department Care Team Description 07/08/[address] [facility] - Kavon Butler, Sacr oiliitis, not elsewhere classified ([facility]) (Primary Dx); [facility] MD S/P lumbar fusion [facility] [id number] [address] [place] [phone] Social History Tobacco [...] Sign Reading Time Taken Comments Blood Pressure 127/66 07/08/2014 1447 EST Pulse 66 07/08/2014 1447 EST Temperature 36.4 ??C (97.6 ??F) 07/08/2014 1357 EST Respiratory Rate 16 07/08/2014 1357 EST Oxygen Saturation - - Inhaled Oxygen Concentration - - Weight 149.7 kg (330 lb) 07/08/2014 1357 EST Height 172.7 cm (5' 8) 07/08/2014 1357 EST Body Mass Index 50.18 07/08/2014 1357 EST documented in this encounter Discharge Diagnoses Diagnosis 720.2 SACROILIITIS NEC[ICD-9-CM] V45.4 ARTHRODESIS STATUS[ICD-9-CM] documented in this encounter Patient Instructions Patient InstructionsRl Fleming RN - 07/08/2014 14:34 EST [facility] [place] [address] Patient Instructions You have had your bilateral Sacroiliac Joint Injection. The purpose of this procedure has been to place medication which may help relieve your pain. Steroid may be used to decrease the swelling and nerve irritation which may be causing your pain. The following information should help you over the next few days regarding what you may expect. Today please stay busy/active doing things that would normally cause you pain. Keep track of your hours of relief and your percentage of relief today (0 to 100 , 0 = no relief and 100% = total relief).Separate the pressure and tightness that we caused you from your regular pain and see what your relief is. Call us back tomorrow with this information. Procedure end time: 14:45 Pain relief start time Returned to baseline pain Hours of relief Percentage of relief 0-100 (0 = no relief, 100 = total relief) DO NOT drive a car for the remainder of the day. If you feel sore where the needle(s) entered for the block or develop a flare- up of pain over the next few days, please use ice on the area. You may leave the ice on for up to 20 minutes at a time. Donot use heat, as this may cause swelling. As long as your primary doctor has indicated no restrictions, you may take a mild pain medicine, such as acetaminophen (Tylenol), ibuprofen (Advil, Nuprin, Motrin IB, etc.) or aspirin, if needed. The steroid injection usually takes a few days to become effective. On average, you may notice somerelief in 3 -5 days. However, it may take up to 10 ??? 14 days to know whether the injection was helpful. If the block causes numbness/weakness, it should wear off within a few hours. If the area that the needle(s) were inserted becomes hot, red, swollen, or increasingly tender, or if you develop a fever (100.5 or greater) or chills along with these symptoms, please call our officeimmediately. If you develop increasingly severe back pain, continued numbness or weakness of the legs, please call our office at once. Instructions for follow-up If you have any questions about your block, please call Patient Education Topic: Method: Handout and Verbal Taught to: Patient Barriers: None Outcomes: independent and verbalized understanding Signature: RL FLEMING RN documented in this encounter Progress Notes Kavon Butler - 07/08/2014 1443 EST Patient Name: Tia Spain : 1975 Date of Service: 07/08/2014 Marketing Assistant: Kavon Butler MD Procedure: bilateral sacroiliac joint injection Interval History Ms. Spain presents to clinic at the request of Starr Hart for diagnostic bilateral SI joint injections. Briefly, she has a history of low back pain and right leg pain that led mikel L5-S1 fusion in 1999, which helped her leg and back pain. Over the last few years, she has developed bilateral low back pain that does not radiate and is different to her original pain. This pain isworse with activity and improves with rest. Please see the note from Starr Edil Tanner 05/04/14 for details of the history, prior therapies and imaging. Allergies: Allergies Allergen Reactions ??? Adhesive Other (See Comments) Skin irritation ??? Bee Sting [Hymenoptera Allergenic Extract] Swelling Fever and vomiting ??? Codeine Hives and Nausea And Vomiting Review of Systems: Negative for any fever, chills, nausea/vomiting, headaches, chest pain, palpitations, shortness of breath, bladder/bowel incontinence, easy bruising, bleeding, anti-coagulation or known recent infections. Physical Examination: Vital signs: BP 121/56 Pulse 70 Temp(Src) 36.4 ??C (97.6 ??F) (Tympanic) Resp 16 Ht 172.7 cm(68) Wt 149.687 kg (330 lb) BMI 50.19 kg/m2 Patient is alert, oriented x 3 and conversant. Able to stand and ambulate without difficulty. Gait is normal She is obese Lumbar spine is tender to palpation over the low back Examination of the lower extremities reveal normal strength. Assessment: 1. Sacroiliitis, not elsewhere classified 2. S/P lumbar fusion Plan: Perform diagnostic and therapeutic bilateral sacroiliac joint injection Follow up: as needed. Procedure: The patient gave informed written consent to proceed with this procedure following a detailed discussion of the risks and benefits associated with sacroiliac joint injection. The site was marked prior to the start of the procedure. The patient was then placed in the prone position, the skin over the area was prepped with chlorhexadine, and the site was draped with sterile towels. Strict sterile technique was maintained throughout the procedure. A quach moment was performed with full staff present to [...] After negative aspiration, 40 mg Depo-Medrol and 2 ml 0.5% Bupivacaine were injectedfor a total of 3 ml in each joint. See nursing MAR for wasted medications The needle was then flushed and withdrawn. The patient tolerated the procedure well, there were no apparent complications, and she was discharged in stable condition. Written and verbal discharge instructions were reviewed with the patient prior to discharge. Stacey Rubin - 07/08/2014 1400 EST [facility] Rooming Note Does patient have a Software Developer? yes Is patient NPO? (Solids since midnight & liquids for 4 hrs) na Blood Thinners: Is patient on Blood Thinners? no If yes, taking? If stopped, who authorized stopping? Related comments: Infections: Any recent infections, fever of illnesses? no If on antibiotics, is it 7-10 days past the date of completion of antibiotics? no : (for females of child-bearing age) Is there a chance current ? no Other: documented in this encounter Plan of Treatment Upcoming Encounters Date Type Specialty Care Team Description 06/25/2022 Telemedicine Neurology Kj Gloria MD PhD [address] [facility] [address] [place], [place] [phone] (Jayjay anaya) 09/06/2022 Procedure visit Pain Medicine Catalino Garrett M D [address] [facility] [address] [place] [address] (Jayjay anaya) 09/21/2022 Office Visit Bariatrics Allen Thompson PA-C [address] [facility] [place], [place] [address] (Jayjay anaya) documented as of this encounter Visit Diagnoses Diagnosis Sacroiliitis, not elsewhere classified ( [facility]) (HCC) - Primary Sacroiliitis, not elsewhere classified S/P lumbar fusion Arthrodesis status documented in this encounter Administered Medications Inactive Administered Medications - up to 3 most recent administrations Medication Order MAR Action Action Date Dose Rate Site bupivacaine (PF) (MARCAINE) 0.5 % Given by Other 07/08/2014 14:39 EST 30 mg (5 mg/mL) injection 30 mg 30 mg (6 mL), intra-articular, NOW X1, 1 dose, On Karen 07/08/14 at 1500, Routine methylPREDNISolone ACETATE Given by Other 07/08/2014 14:39 EST 80 mg (DEPO-MEDROL) injection 80 mg 80 mg, intra-articular, NOW X1, 1 dose, On Karen 07/08/14 at 1500, Routine documented in this encounter Care Teams Busperson Relationship Specialty Start Date End Date Juma Herrera MD PCP - General 09/25/12 12/07/18 [address] [place] [address] documented as of this encounter
--- OUTSIDE RECORDS SUMMARY | 2022-06-15 07:54 | XMS_ITS | Encounter Summary ---
:1975 Author Organization [facility] Address [address] [place] [address] Care Team Providers Name Role Phone Juma Herrera MD Primary Care Provider Unavailable Reason for Referral Radiology Services (Routine) - Closed Specialty Diagnoses / Procedures Referred By Contact Refer red To Contact Diagnoses GERD (gastroesophageal reflux disease) Master Ugarte, Procedures [place] ESOPHAGRAM (BARIUM SWALLOW) [address] [place] [address] Referral ID Status Reason Start Date Expiration Date Visits Requ ested Visits Authorized [id number] Closed 12/03/2014 1 1 onsult, Test and Treat (Routine) - Closed Specialty Diagnoses / Procedures Referred By Contact Refer red To Contact Diagnoses GERD (gastroesophageal reflux disease) Master Ugarte [facility] Room Procedures UPPER ENDOSCOPY [place] ESOPHAGOGASTRODUODENOSCOPY TRANSORAL DIAGNOSTIC MD Marques [address] [facility] [place] [address] Referral ID Status Reason Start Date Expiration Date Visits Requ ested Visits Authorized [id number] Closed 01/18/2015 1 1 Reason for Visit Reason Comments Obesity OBE Encounter Details Date Type Department Care Team Description 12/03/2014 Office Visit [facility] Master Ugarte GERD (gastroesophageal Bariatric Surgery - MD Marques reflux disease) [address] (Primary Dx) [address] [place] [address] [place], [place] [phone] Social History Tobacco Use Types Packs/Day Years [...] - Inhaled Oxygen Concentration - - Weight 147.7 kg (325 lb 9.6 oz) 12/03/2014 1052 EDT Height 168.5 cm (5' 6.34) 12/03/2014 1052 EDT Body Mass Index 52.02 12/03/2014 1052 EDT documented in this encounter Patient Instructions Patient InstructionsShweta Garcia Jo - 12/03/2014 12:09 EDT Dear Tia Spain: You are scheduled for an upper endoscopy, also called a(n) gastroscopy or EGD with : Dr. Ugarte On January 18 at 8:00am. Please arrive by 7:00am. (ONE HOUR BEFORE your scheduled procedure time) To ensure a successful exam, please read the enclosed information carefully. You have also been scheduled for an Esophagram on January 18 @ 10:00am This is a test that looks at the throat going down into the stomach. You will be given approximately8 ounces of barium to drink prior to being scanned. This exam takes approximately 30 minutes. Please remember: NO SOLID FOOD after Noon the day before your procedure. You may have liquids only until midnight. NO FOOD OR DRINK at all after midnight. You MUST have a ride to and from the procedure. ??? Note: PREPARATION FOR THE PROCEDURE starts ONE WEEK before your scheduled procedure date. ??? PLEASE ARRANGE FOR A RIDE HOME AFTER YOUR PROCEDURE. (Taxi transportation is not acceptable). ??? REMEMBER TO BRING YOUR MEDICATION LIST WITH YOU. The procedure will be performed at the [facility] ([facility]) located at [facility]. ??? Parking is available in the new parking garage. Please enter the garage using the [address] entrance. ??? From the garage, take the elevators to the 3rd floor to registration for check-in. They will direct you to the [facility]. We look forward to seeing you soon. If you have any questions, concerns or need to reschedule your procedure, please call us at [phone]. What is an Upper GI Endoscopy? Also known as: Esophagogastroduodenoscopy; EGD; Upper Endoscopy; Gastroscopy An Upper GI endoscopy is an examination of the upper gastrointestinal (GI) tract using a specializedvideo camera called an endoscope. This instrument is inserted down the throat and shows images of the lining of the esophagus, stomach and upper duodenum. How to prepare for the test ??? See ???Colonoscopy and Upper Endoscopy Preparation Instructions?? How the test will feel The local anesthetic makes swallowing difficult. This wears off shortly after the procedure. The endoscope may stimulate some gagging in the back of the throat. There may be a sensation of gas and the movement of the scope may be felt in the abdomen. Biopsies cannot be felt. Because of the intravenous sedation, you may not feel any discomfort and may have no memory of the test. Why the test is performed This test can help diagnose and potentially treat: ??? The cause of upper GI (gastrointestinal) bleeding ??? The cause of swallowing difficulties, removal of foreign objects ??? The presence of tumors or other abnormalities of the upper GI tract ??? Inflammation, narrowing, or tumors of the esophagus The procedure Please arrive one hour prior to your scheduled procedure time. When you arrive at the [facility] ([facility]), please: ??? Bring your medication list and tell the nurse about any drug allergies, medications you take regularly and any health problems (such as heart, breathing, sugar, or bleeding problems.) ??? Change into a hospital gown. ??? Remove dentures. An intravenous (IV) line will be inserted into a vein in your arm. The IV will allow you to receive medications and fluids for the procedure. After your arrive into the procedure room, you will: ??? Be asked to swallow a special type of paste that will numb your throat. This medication will help suppress the need to cough or gag when the endoscope is inserted. ??? Receive medications through the IV, a combination of a sedative (relaxing) and narcotic (pain reliever) ??? Have a mouth guard to protect your teeth and the endoscope. ??? Be instructed to lie on your left side. The endoscope will be advanced through the esophagus to the stomach and duodenum (the first part of the small intestine). The endoscope will not affect your breathing. Air will be introduced through the endoscope to enhance viewing. This may make you burp. The exam typically lasts about 5 minutes, depending on examination findings. After the test is completed, food and liquids will be restricted until your gag reflex returns. The entire process, from the time you arrive to when you leave, is estimated at two hours. ??? You will not be able to drive yourself home secondary to the medications given for the exam. Bring someone to drive you home. A electric train driver is not acceptable. Risks There is a small chance of perforation (hole) of the stomach, duodenum, or esophagus or bleeding at the biopsy site. A patient could have an adverse reaction to the medication. The overall risk is lessthan 1 out of 2,500 people. After the procedure If any of these symptoms occur after the test, please contact our office at [phone]. ??? Difficulty swallowing ??? Fever or Pain ??? Black stools or Blood in vomit If biopsies were taken, results will be mailed to you within a 2 to 3 week period. EGD Preparation Instructions Medication Precautions: ??? If you are currently taking: ? MAO inhibitors ? Blood thinning medication such as clopidogrel (Plavix), warfarin (Coumadin) or heparin ? Insulin ??? Please contact your doctor who manages these medications with you before stopping them. ONE WEEK PRIOR TO YOUR PROCEDURE ??? STOP ALL MAO inhibitors, aspirin products, blood thinning agents such as clopidogrel (Plavix), warfarin (Coumadin), and any anti-inflammatory medications such as ibuprofen (Advil, Motrin) and naproxen (Aleve, Naprosyn). [Please refer to corresponding Medication Avoidance List for complete list]. ??? Discuss any allergies, current medications and family history of bleeding with your doctor. ??? Arrange for someone to drive you home on your procedure day. DAY BEFORE YOUR PROCEDURE ??? STOP taking any antacids, carafate, sulfcarafate, or any other stomach coating products 24 hoursbefore your procedure. ??? DO NOT eat or drink anything after midnight the night before your exam if your exam is scheduledfor the morning. DAY OF YOUR PROCEDURE ??? DON???T FORGET, YOU???LL NEED TO BRING SOMEONE WHO CAN TAKE YOU HOME. A LAWN CARE SPECIALIST IS NOT ACCEPTABLE. THE PROCEDURE WILL NOT BE PERFORMED WITHOUT A SAFE WAY HOME. ??? Do take your morning medications with a small sip of water. o If you have diabetes, your medications may need to be adjusted. Please discuss this with your doctor who manages your diabetes. ??? Do not have anything to eat or drink at least 6 hours prior to your exam. o If you have an exam scheduled after 1:00 pm, you may have a clear liquid breakfast. ??? Your stomach must be completely empty for this procedure ??? Please check-in ONE HOUR BEFORE your scheduled procedure time at the registration desk located on the 3rd floor of the [facility]. o They will direct you to the Endoscopy suite located on the 4th floor of the [facility] in the [facility] ([facility]). ??? You will be receiving intravenous medication during the procedure for your comfort. Be sure to mention any allergies to medications to our staff. ??? If tissue samples (biopsies or polyps) are taken, it will take up to 2-3 weeks for results to bemailed to you. ??? Estimated time of stay after registration: approximately 2 hours. If you have any questions, concerns, or need to reschedule your procedure, please call [phone]. CLEAR LIQUID DIET What is it? You are allowed to consume only foods you can see through (Examples are listed below). This means nosolid foods, nuts, fruits, seeds, dairy products, or food containing dairy (ice cream, sherbet, pudding, or yogurt). ??? Please AVOID RED COLORED ITEMS as they can be mistaken for blood during the procedure. ??? You may have as much as you wish of the clear liquid diet but please check your procedure instructions to find out when you have to stop eating and drinking. The ???nothing by mouth?? policy is inplace to ensure the procedure be completed as safely as possible. ??? No alcoholic beverages EXAMPLES OF WHAT YOU CAN EAT & DRINK Beverages (NO RED COLORED DRINKS, NO COFFEE, NO ORANGE OR GRAPEFRUIT JUICE) ??? Apple juice ??? White grape juice ??? Kendrick-Aid ??? Sports Drinks ??? Gatorade, Powerade, etc. ??? Water ??? Tea (NO CREAM, MILK, or non-Dairy creamer) ??? Soda Soups ??? Clear broth or bouillon Popsicles (No RED colored popsicles) Hard Candies (No RED colored candies) ??? No chocolate or caramels Plain Jello (No RED colored Jello) ??? No added fruit, etc. If you have any questions, concerns, or need to reschedule your procedure, please call [phone]. Medication avoidance list This may not be a complete product listing. Other products may also contain these drugs so you should review the contents of any medications that you take to see if they contain any of the drugs listed above. MAO ??? INHIBITORS: (MONOAMINE OXIDASE INHIBITORS) ASPIRIN OR ASPIRIN LIKE COMPOUNDS (Marplan)-Isocarboxazid Prescription (Nardil)-Phenelzine Darvon Compound-65 Clorgyline Disalcid Capsules/Tablets Moclobemide Easprin Tablets Senegiline Emprin with Codeine Tablets Tranylcypromine Equagesic Tablets ASPIRIN OR ASPIRIN-LIKE COMPOUNDS Fiorinal Capsules/Tablets, Fiorinal with Codeine Caplets/Tablets Nonprescription: Lortab ASA Tablets Jennifer-Crestline Antacid Pain Reliever Magsal Tablets Jennifer-Crestline Plus cold Preparations Real-Gesic Tablets Anacin Maximum Strength Tablets, Norgesic & Norgesic Forte Tablets Arthritis Pain Formula Tablet Percodan & Percodan-Marli Tablets Arthritis Strength Robaxical Tablets Bufferin Tablets Salflex Tablets Ascription A/D Caplets Soma Compound Tablets Aspergum Soma Compound with Codeine Tablets Ish Aspirin Caplets/Tablets Synalgos-DC Capsules Ish Plus Tablets Ursinus Inlay-Tabs Maximum Ish Caplets,/Tablets Talwin 8-hour Ish Extended -Release Tablets IBUPROFEN BC Powder, BC Cold Powder Advil Caplets/Tablets Buffaprin Caplets/Tablets Advil Cold/Sinus Caplets Buffaprin Caplets/Tablets Ish Select Ibuprofen Pain Relief Bufferin Arthritis Strength Caplets Formula Cama Arthritis Pain Reliever Tablets Haltran Tablets Juan's Pills Caplets Ibuprohm Ecotrin Caplets/Tablets Ibuprofen Caplets/Tablets Empirin Midol IB Tablets Excedrin Extra-Strength Caplets/Tablets Motrin IB Caplets/Tablets Midol Caplets Nuprin Ibuprofen Caplets/Tablets Mobigesic Analgesic Tablets Sine-Aid IB [place] Tablets Motrin IB Caplets/Tablets P-A-C Analgesic Tablets NAPROXEN SODIUM Pepto-Bismol Liquid/Tablets Naprosyn Suspension Tablets Sine-Off Tablets Aspirin Formula Anaprox/Anaprox DS Tablets ASPIRIN OR ASPIRIN-LIKE COMPOUNDS OTHER NON-STEROIDAL ANTI-INFLAMMATORIES Nonprescription Celecoxib (Celebrex) [facility] Adult Chewable Aspirin Diclofenac (Voltaren) Therapy Ish Caplets Etodolac (Lodine) Trigesic Indomethacin (Indocin) Ursinus Inlay-Tabs Ketoprofen (Orudis) Vanquish Analgesic Caplets Ketorolac (Toradol) Meloxicam (Mobic) Nabumetome (Relafen) Piroxicam (Feldene) Rofecoxib (Vioxx) Sulindac Valdecoxib (Bextra) Getting to the [facility] [place] [address] [place] [address] From the [facility] and [facility] From the [place] area, take [address] to [facility] in [place]. Turn right onto [facility] (which becomes [facility]) and continue for approximately one mile. [facility]'s [place] is on your right. Once on the campus, stay on [address] and follow signs to the parking garage and main entrance. From [place] and [place] Take [address]. From the [place] Areas Take [address] to [address]. From the [place] Areas Take [address]. [address]. Take [address]. (Alternate: Cross [address]. Take [address] to [address] to [address] From [address] through three traffic lights. Bear right onto [address] (marked by [facility] sign). Follow signs to parking garage and main entrance. documented in this encounter Progress Notes Master Ugarte MD - 12/03/2014 1130 EDT 12/03/2014 Chief Complaint: Tia Spain is a 39 y.o. female seen today in consultation at the request of for consideration of surgical treatment for her morbid obesity. HPI: Tia Spain has had weight problems since high school. She has tried multiple weight loss programs with the following results: no long-term success. Their maximum weight loss has been 50 pounds, andtheir highest weight has been 334. The patient's primary motivation for weight loss is health, mobility, longevity and appearance. Associated co-morbidities: Osteoarthritis gerd COPD smoking recently quit 50 pack history Gallbladder: US not done yet Prior abdominal surgeries: Cholecystectomy, lumbar fusions cervical fusion,peripheral neuropathy Past Surgical History Procedure Laterality Date ??? Spinal fusion L5-S1 Dr. Child 2006 ??? Laminectomy L5-S1 Dr. Bowers 1999 ??? Cholecystectomy ??? Tubal ligation ??? Back surgery Gastric problems/issues: GERD Patient Active Problem List Diagnosis ??? Lumbar radiculopathy ??? Os trigonum syndrome ??? Tarsal tunnel syndrome of right side ??? Idiopathic peripheral neuropathy ??? Cervicalgia Allergies: Adhesive; Bee sting; and Codeine Social History: History Substance Use Topics ??? Smoking status: Former Smoker Quit date: 01/13/2009 ??? Smokeless tobacco: Not on file ??? Alcohol Use: Yes Comment: very rarely Review of Systems: A ten point review of systems was performed. Pertinent positives are listed below, all others are negative. Musculoskeletal:positive for arthralgias/joint pain, back pain, bone pain, neck pain, stiff joints and lack of morbidity Physical Exam: Ht 168.5 cm (66.34) Wt 147.691 kg (325 lb 9.6 oz) BMI 52.02 kg/m2 Body mass index is 52.02 kg/(m^2). General Appearance: morbidly obese HEENT: PERRLA, EOMI and Sclera clear, anicteric Cardiovascular: PMI normal. No lifts, heaves, or thrills. RRR. Heart sounds normal. No murmurs, clicks or gallops. Abdominal aorta pulsation normal. Carotid, femoral and pedal pulses 2+ bilaterally. Noarterial bruits. No peripheral edema. Abdomen: soft, non-tender; bowel sounds normal; no masses, no organomegaly Pannus: moderate Skin: Skin color, texture, turgor normal. No rashes or lesions. Extremities: normal strength, tone, and muscle mass Assessment: I spent a total of 45 minutes in face to face time with this patient and 25 minutes of that time wasspent in counseling, discussing this patient's medical profile as it relates to the benefits and risks of gastric bypass/lapband surgery and reviewed an on-line HELEN tutorial the patient watched covering the way weight loss surgery is done, how it causes weight loss, potential risks and complications,impact on eating and critical nature of exercise and follow up to a good outcome. The patient acknowledges a pre-op BMI goal of 5%. I explained in detail the procedures that we are performing. All of these procedures can be performed laparoscopically or open. The patient was made aware of the followin. As we perform these procedures laparoscopically, there is a chance to convert to open if any technical challenges or complications do occur. 2. Bariatric surgery is not cosmetic surgery and should not be thought of in any way as cosmetic surgery. It does not involve the removal of adipose tissue by surgery or removal by suctioning. 3. Long-life commitment is a very important part of his/her decision along with lifestyle changes including diet, exercise, and behavior changes. 4. Problems after surgery may require more operations to correct them. 5. Patient will need to be on a liquid/protein diet for at least 2 weeks prior to surgery. 6. If appropriate: she was advised against during the first year after the procedure. The risks, benefits and alternatives of all of the procedures were explained in detail including, but not limited to , anesthesia and medication adverse effect/DVT, pulmonary embolism, trocar site/incisional hernia, wound infection, bleeding, failure to lose weight or gain weight and change in body image. With regard to the band, the risks and benefits were explained. The risks associated with the band include, but are not limited to: gastric/esophageal perforation, access port leakage, infection or twisting that may require an additional operation, failure to lose weight or gaining weight, nausea, vomi ting, outlet obstruction, pouch and esophageal dilatation, gastroesophageal reflux disease symptoms,band migration/slippage or erosion. For the gastric bypass the risks include but not limited to the following early complications: anastomotic leak/peritonitis, acute distal gastric dilatation, So limb obstruction, severe & minor wound infection/seroma, and nausea/vomiting. Late complications of gastric bypass can include but are not limited to: stomal stenosis, marginal ulcer, SBO/internal,incisional hernia, staple line disruption (GGF) and metabolic complications with calcium, thiamine, vitamin B12, folate, iron and anemia. Regarding the sleeve the risks include but are not limited to: internal visceral/ organ injury, bleeding, infection, leak, stenosis and possibility of regaining weight. The patient understands the surgical procedures and the different surgical options that are available. She understands the lifestyle changes that would be required after surgery and has agreed to participate in a pre-operative and postoperative weight management program. She understands the risks involved as well, including a leak, a blood clot developing in a leg and migrating to the lungs as a pulmonary embolus, conversion to open surgery, and . Tia has attended the preoperative bariatric education class and has had additional opportunity to address specific concerns. I think she is a good candidate for this surgery, and her expectations from the surgery are reasonable. Plan: She was asked to Shedule a follow-up appt with our associate dean of students and our physician's bindery library technical assistant, MARGARITA Fox. We will obtain the results of the following: UGI and EGD. Tia Spain is an appropriate candidate for Gastric Bypass or Gastric Sleeve surgery pending testresults.. For the next visit she was advised to come with her family. Seen and discussed with Zigzagger at this visit. Master Ugarte MD 12/03/2014 11:30 Lux Alfarou - 12/03/2014 1122 EDT Bariatric Clinic - Medical Nutritional Evaluation - Initial 12/03/2014 Evaluation for Gastric Bypass/Gastric Sleeve. Subjective: Patient is 39 y.o. female here for nutritional assessment for morbid obesity in preparation for bariatric surgery. Reports she stopped smoking. Nutrition/diet history: Family/other support system: parents Menu planning/shopping: patient Who does the cooking: patient Eating out frequency: Once a week Prior weight loss attempts: Weight Watchers, Omnidiet;Atkins diet and diet pills Patient's diet has not changed substantially since 3 day food record was kept. Allergies Allergen Reactions ??? Adhesive Other (See Comments) Skin irritation ??? Bee Sting [Hymenoptera Allergenic Extract] Swelling Fever and vomiting ??? Codeine Hives and Nausea And Vomiting Food Intolerances:None; Dislikes Spinach,Brussel sprouts,fish and liver(Can eat tuna with lodnon) Current Exercise: no planned exercise Reasons for limited exercise: medical issues Objective: Ht 168.5 cm (66.34) Wt 147.691 kg (325 lb 9.6 oz) BMI 52.02 kg/m2 Body mass index is 52.02 kg/(m^2). Excess BW:187.5 lbs 5% Wt Loss or Goal Wt: 16 lbs Estimated Body Wt after Surgery: 213 lbs s/p Sleeve and 200 lbs s/p Bypass Patient was counseled on keeping a food diary and pre-op weight loss expectations and given Drs. Mauri Jackson Patient has the following barriers to learning: none Assessment: Patient seems to be an appropriate candidate for bariatric surgery based on multiple failed weight loss attempts and BMI and comorbidities. Patient has already made significant positive changes in diet:Stopped coffee with cream; Using Splenda in tea, No soda; trying to bake foods rather than melgoza. Patient needs to make the following changes prior to next visit include protein at least 3 times a day,, keep food records,, eat more slowly,, add 3 servings of vegetables each day, and add 2 servings of fruit each day,. Patient needs to make the following changes in exercise prior to next visit: Start exercise and aim for 150 min a week. Patient appears to comprehend requirements. Plan: Patient will be evaluated for changes in diet as above and maintain a food diary including foods consumed and calories calculated. Patient is expected to bring at least 1 week of food diaries to second visit for review. Patient will lose 1-2 pounds a week, or at least 16 lbs by day of surgery Lux Dumont, THOMAS 12/03/2014 11:22 documented in this encounter Plan of Treatment Upcoming Encounters Date Type Specialty Care Team Description 06/25/2022 Telemedicine Neurology Kj Gloria MD PhD [address] [facility] [address] [place], [place] [phone] (Wo rk) 09/06/2022 Procedure visit Pain Medicine Catalino Garrett M D [address] [facility] [address] [place] [address] (Wo rk) 09/21/2022 Office Visit Bariatrics Allen Thompson PA-C [address] [facility] venue [facility], [facility], [address] [place], [place] [address] (Wo rk) Scheduled Orders Name Type Priority Associated Diagnoses Order S chedule UPPER ENDOSCOPY GI Routine GERD (gastroesophageal re flux Ordered: 12/03/2014 disease) documented as of this encounter Procedures Procedure Name Priority Date/Time Associated Comments Diagnosis [place] ESOPHAGRAM Routine 01/18/2015 9:48 EDT GERD Results for this (BARIUM SWALLOW) (gastroesophageal proced ure are in reflux disease) the results section. documented in this encounter Results FL ESOPHAGRAM (BARIUM SWALLOW) (01/18/2015 9:48 EDT) Anatomical Region Laterality Modality Other Specimen Narrative [facility] RAD[facility]OLOG[facility] - 01/18/2015 10:06 EDT [place] ESOPHAGRAM ??01/18/2015 9:48 AM Clinical History/Comments: 530.81-Esophageal [id number]-5-CM; gerd. Findings: ?? Esophagram Technique: Single and double-contrast views of the thoracic esophagus were obtained. Rapid sequence imaging of the pharynx and cervical esophagus were also obtained. Findings: The study shows a normally distensible t horacic esophagus with a normal-appearing mucosa. Images through the pharynx and cervical esophagus are within normal limits. spinal fusion hardware is noted There is no evidence of gastroesophageal reflux. There is no evidence of hiatal hernia. Impression: Normal study. Procedure Note Kj Pelaez MD - 01/18/2015 [place] ESOPHAGRAM 01/18/2015 9:48 AM Clinical History/Comments: 530.81-Esophageal drenmc-YAI-3-CM; gerd. Findings: Esophagram Technique: Single and double-contrast views of the thoracic esophagus were obtained. Rapid sequence imaging of the pharynx and cervical esophagus were also obtained. Findings: The study shows a normally distensible t horacic esophagus with a normal-appearing mucosa. Images through the pharynx and cervical esophagus are within normal limits. spinal fusion hardware is noted There is no evidence of gastroesophageal reflux. There is no evidence of hiatal hernia. Impression: Normal study. Performing Organization Address City/State/ZIP Code Phon e Number [facility] documented in this encounter Visit Diagnoses Diagnosis GERD (gastroesophageal reflux disease) - Primary Esophageal reflux documented in this encounter Care Teams Retail Chain Store Area Supervisor Relationship Specialty Start Date End Date Juma Herrera MD PCP - General 09/25/12 12/07/18 [address] [place] [address] documented as of this encounter
--- OUTSIDE RECORDS SUMMARY | 2022-06-15 07:54 | XMS_ITS | Encounter Summary ---
:1975 Author Organization [facility] Address [address] [place] [address] Care Team Providers Name Role Phone Juma Herrera MD Primary Care Provider Unavailable Reason for Visit Reason Comments Neck Pain Encounter Details Date Type Department Care Team Description 12/09/2012 Office Visit [facility] Ana Rosa Mendoza (Primary Spine Program - Moises Kovacs MD Dx) [address] [place] [address] [address] Social History Tobacco Use Types [...] documented as of this encounter Progress Notes Ana Rosa Mendoza MD - 12/12/2012 0831 EDT [facility] ([facility] [address] [place] [address] PROGRESS/FOLLOWUP NOTE - 12/09/2012 PROBLEM. 1. 50% back, 50% right leg pain. A. L5 isthmic spondylolisthesis. B. Status post right L5-S1 discectomy and decompression, 1999 (Elissa). C. L5-S1 decompression and fusion, January 14, 2007 (Mateusz). 2. Obesity. A. BMI 38. 3. 50 pack year smoking history. 4. History of narcotic addiction. A. Sobriety X 3 years. 5. Post-Traumatic Stress Disorder. 6. Bipolar disorder. 7. Personality disorder. 8. Right shoulder pain. SUBJECTIVE: Patient returns for routine followup. Overall making good progress. She has no pain in her neck, continues to have medial scapular pain and some numbness on her long and index finger on theright hand, but no discomfort. She is now back to work. OBJECTIVE: Incision well healed, 5/5 all muscle groups. DIAGNOSTIC DATA: X-rays lateral C-spine shows hardware in good position graft consolidating. No halos, loosening or migration. ASSESSMENT: Patient making appropriate progress. PLAN: 1. Continue with home PT. 2. Follow up in 3 months, lateral C-spine to be obtained prior to being seen. Electronically Signed by Ana Rosa Mendoza MD 12/12/2012 14:37 Ana Rosa Mendoza MD - Ana Rosa Mendoza MD - AN Job ID: Doc ID: [id number] Ext Doc ID: [id number] cc: Ana Rosa Carreno MD - 12/09/2012 1448 EDT This office note has been dictated. ANA ROSA MENDOZA MD documented in this encounter Plan of Treatment Upcoming Encounters Date Type Specialty Care Team Description 06/25/2022 Telemedicine Neurology Ana Rosa Gloria MD PhD 1 [facility] Level [address] [place], [place] [address] (Jayjay anaya) 09/06/2022 Procedure visit Pain Medicine Catalino Garrett M D [address] [facility] [address] [place] [address] (Wo rk) 09/21/2022 Office Visit Bariatrics Allen Thompson, ELISABETH [address] [facility], [facility], [address] [place], [place] [address] (Wo rk) documented as of this encounter Visit Diagnoses Diagnosis Cervicalgia - Primary documented in this encounter Historical Medications This list may reflect changes made after this encounter. Medication Sig Dispensed Refills Start Date End Date methylphenidate (RITALIN) Take 10 mg by 0 02/03/2015 10 mg tablet mouth daily. rizatriptan (MAXALT) 10 mg Take 10 mg by 0 12/18/2021 tablet mouth once as needed. May repeat in 2 hours if needed added in this encounter Care Teams Pipe Cleaner Relationship Specialty Start Date End Date Juma Herrera MD PCP - General 09/25/12 12/07/18 [address] [place] [address] documented as of this encounter
--- OUTSIDE RECORDS SUMMARY | 2022-06-15 07:54 | XMS_ITS | Encounter Summary ---
:1975 Author Organization [facility] Address [address] [place] [address] Care Team Providers Name Role Phone Juma Herrera MD Primary Care Provider Unavailable Reason for Visit Reason Onset Date Comments Prior Auth, Medication 08/31/2015 Needs prior autho rization for Zofran and Prilosec. Encounter Details Date Type Department Care Team Description 08/31/[address] [facility] Master Ugarte Auth, Medication Bariatric Surgery - MD Marques (Needs prior [place] [address] [address] authorization for Zofran [address] and Prilosec.) [place] [address] [place], [place] [phone] Social History Tobacco Use Types Packs/Day [...] on file documented as of this encounter Ordered Prescriptions Prescription Sig Dispensed Refills Start Date End Date prochlorperazine (COMPAZINE) Take 1 Tab by 60 Tab 0 08/04 10 mg tabletIndications: S/P mouth every 6 laparoscopic sleeve hours as needed gastrectomy, for Nausea Gastroesophageal reflux disease without esophagitis omeprazole (PRILOSEC) 20 mg Take 2 Caps by 60 Cap 3 08/0409/22/2021 capsuleIndications: S/P mouth daily laparoscopic sleeve gastrectomy, Gastroesophageal reflux disease without esophagitis documented in this encounter Miscellaneous Notes Telephone Encounter - Mary Rosales RN - 08/31/2015 0718 EST Patients insurance will not cover zofran or omeprazole 40mg capsules. New scripts called in for compazine and omeprazole 20mg capsules. Orders placed per bariatric refill protocol. E-script sent to [facility]. documented in this encounter Plan of Treatment Upcoming Encounters Date Type Specialty Care Team Description 06/25/2022 Telemedicine Neurology Kj Gloria MD PhD 1 [facility] 2 [place], [place] [phone] (Jayjay anaya) 09/06/2022 Procedure visit Pain Medicine Catalino [place] M D [address] [facility] [address] [place] [address] (Jayjay anaya) 09/21/2022 Office Visit Bariatrics Allen Thompson PA-C [address] [facility], [address] [place], [place] [address] (Jayjay anaya) documented as of this encounter Visit Diagnoses Diagnosis S/P laparoscopic sleeve gastrectomy - Pr imary Bariatric surgery status Gastroesophageal reflux disease without esophagitis Esophageal reflux documented in this encounter Discontinued Medications Medication Sig Discontinue Reason Start Date End Date omeprazole (PRILOSEC) 40 Take 1 Cap by Insurance does not 5 08/31/2015 mg capsule mouth daily cover starting after surgery on 09/05/14 prochlorperazine Take 1 Tab by Alternate therapy 09/29/201208/31 (COMPAZINE) 10 mg tablet mouth every 6 hours as needed for Nausea. ondansetron (ZOFRAN-ODT) 4 Take 1 Tab by Insurance does not 015 08/31/2015 mg disintegrating tablet mouth every 8 cover hours as needed for Nausea starting after surgery on 09/05/14 documented as of this encounter Care Teams Accounting Advisory Services Manager Relationship Specialty Start Date End Date Juma Herrera MD PCP - General 09/25/12 12/07/18 [address] [place] [address] documented as of this encounter
--- OUTSIDE RECORDS SUMMARY | 2022-06-15 07:54 | XMS_ITS | Encounter Summary ---
:[address] [facility] Address [address] [place] [address] Care Team Providers Name Role Phone Juma Herrera MD Primary Care Provider Unavailable Reason for Visit Reason Comments Obesity Class Encounter Details Date Type Department Care Team Description 05/18/2015 Office Visit [facility] Lux Dumont obesity with Bariatric Surgery - B, RD BMI of 45.0-49.9, [place] [address] [facility] adult (CMS-HCC) [address] [facility] [address] (Primary Dx) [place] [address] [place], [place] [phone] Social History Tobacco Use Types Packs/Day [...] Weight 129.9 kg (286 lb 6.4 oz) 05/18/2015 0838 EDT Height 168.5 cm (5' 6.34) 05/18/2015 0838 EDT Body Mass Index 45.75 05/18/2015 0838 EDT documented in this encounter Progress Notes Lux Dumont Ana Luisa - 05/18/2015 1146 EDT Bariatric Clinic Nutrition Class - Post Operative Diet Visit #:5 Weight : 129.91 kg (286 lb 6.4 oz),Weight at initial consult: 147.691 kg (325 lb 9.6 oz) Change in Weight:+0.6 lbs Goal Weight: 309.6 lbs Desired Surgery:Gastric Sleeve Patient attended class on The post operative diet after bariatric surgery. Topics discussed: Diet while in hospital, Diet Progression (Liquids, Blended, Soft Solids, Solids), Portion Control, Importance of Excercise, Importance of Food Diary and Recommended Protein Supplements Education was provided via slides, verbal instruction, samples, and written materials. Homework assignment(s) explained to patient and patient instructed to return them at the next visit. Patient completed post class Quiz with a score of 100%. The Post op Nutrition Class is 120 min in length. documented in this encounter Plan of Treatment Upcoming Encounters Date Type Specialty Care Team Description 06/25/2022 Telemedicine Neurology Kj Gloria MD PhD 1 [facility], Level [address] [place], [place] [phone] (Jayjay anaya) 09/06/2022 Procedure visit Pain Medicine Catalino Garrett M D [address] [facility] [address] [place] [address] (Jayjay anaya) 09/21/2022 Office Visit Bariatrics Allen Thompson PA-C 111 [facility], [facility], Level [address] [place], [place] [address] (Jayjay anaya) documented as of this encounter Visit Diagnoses Diagnosis Morbid obesity with BMI of 45.0-49.9, ad ult ([facility] ([facility]) - Primary Morbid obesity documented in this encounter Care Teams Hotel Services Sales Representative Relationship Specialty Start Date End Date Juma Herrera MD PCP - General 09/25/12 12/07/[address] [place] [address] documented as of this encounter
--- OUTSIDE RECORDS SUMMARY | 2022-06-15 07:54 | XMS_ITS | Encounter Summary ---
:1975 Author Organization [facility] Address [address] [place] [address] Care Team Providers Name Role Phone Juma Herrera MD Primary Care Provider Unavailable Reason for Referral PT/OT/ST (Routine) - Closed Specialty Diagnoses / Procedures Referred By Contact Refer red To Contact Diagnoses [place] [address] [address] [place] [address] Referral ID Status Reason Start Date Expiration Date Visits V isits Requested Authorized [id number] Closed Specialty 01/21/2015 1 1 Services Required Question Answer Reason for Request: right knee arthritis, pfps Comments pfps modalites, low impact exercise prog jevon. Reason for Visit Reason Comments Knee Pain right Consult (Routine) - Authorization Not Required Specialty Diagnoses / Procedures Referred By Contact Refer red To Contact Orthopedic Surgery Diagnoses Cervical radiculopathy Juma Herrera MD [facility] [employer] [address] [place] [address] [place] [address] [place] [address] Phone: Fax: Referral ID Status Reason Start Expiration Visits Visits Date Date Requested Authorized [id number] Authorization Not 1 1 Required Encounter Details Date Type Department Care Team Description 01/21/2015 Office Visit [facility] Petey Pat nee pain Sports Medicine Program (Marlena Olsen) - [address] [place], [place] [address] Social History Tobacco Use [...] - Inhaled Oxygen Concentration - - Weight 134.7 kg (297 lb) 01/21/2015 1017 EDT Height 172.7 cm (5' 8) 01/21/2015 1017 EDT Body Mass Index 45.16 01/21/2015 1017 EDT documented in this encounter Progress Notes Petey Pat PA-C - 01/21/2015 1038 EDT OFFICE VISIT: Right knee pain. SUBJECTIVE: The patient states she has had some ongoing problems with this right knee for the past 2years. 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 She suffers popping, clicking, swelling in the knee. She has been followed by her primary care provider, has undergone 2 cortisone injections, the first of which was quite helpful for severalmonths, but she had another one after her pain returned and this did not help all that much. She hasbeen in a physical therapy program that includes aqua therapy, but she notes this has not been helping all that much. She has pain generally throughout the anterior aspect of the knee but also in the popliteal fossa. She has had an MRI and now presents today for our exam and opinion. See intake sheet for remaining review of systems, past medical history. The patient is alert, oriented x3, in some discomfort. Eyes equal and reactive to light. No breathing difficulties. She ambulates with an antalgic gait. Exam of the knee reveals somewhat difficult to ascertain any significant effusion due to her obesity. Her range of motion is short of full extension by about 3 degrees with some pain on bounce test and she flexes to about 110 degrees with pain more anteriorly. The knee is stable to valgus varus stressors and to anterior drawer and Nathanael. Most of her pain is anterior in nature, mostly about the insertion of the patellar tendon to the inferior poleof the patella. There is positive crepitus to compression testing, some slight catching. No neurovascular deficits are appreciated. X-rays reviewed show some mild arthritic changes. The MRI is reviewed and does show a little prepatellar bursitis and a Nicole cyst. There is no meniscal pathology or ligamentous tears. ASSESSMENT: Right knee pain. PLAN: I feel the patient is dealing with ongoing tendonitis, mild arthritis of the patellofemoral region. Unfortunately, there is no quick fix to this. In fact, she will always probably have some degree of disability with this, especially with her weight. If we can minimize her symptoms and make her more functional, I think this would be considered successful, and I think the best way to do this is to continue with her PT program, low impact in nature patellar stabilizing exercises. Ice can be helpful for pain management as well. She should avoid high impact activities or squatting or kneeling. We can follow up with her at a later time if she has any continued problems or exacerbations. The patient is seen at a time Dr Baez is in clinic and available for consultation. documented in this encounter Plan of Treatment Upcoming Encounters Date Type Specialty Care Team Description 06/25/2022 Telemedicine Neurology Kj Gloria MD PhD 1 [facility] 2 [place], [place] [phone] (Jayjay anaya) 09/06/2022 Procedure visit Pain Medicine Catalino Garrett M D [address] [facility] [address] [place] [address] (Jayjay anaya) 09/21/2022 Office Visit Bariatrics Allen Thompson PA-C [address] [facility], [facility], [address] [place], [place] [address] (Jayjay anaya) Scheduled Referrals Name Type Priority Associated Diagnoses Order S chedule AMB CONS/FOLLOW UP Outpatient Referral Routine Right knee pain Ordered: PHYSICAL THERAPY 01/21/2015 documented as of this encounter Visit Diagnoses Diagnosis Right knee pain - Primary Pain in joint, lower leg documented in this encounter Care Teams Marketing Officer Relationship Specialty Start Date End Date Juma Herrera MD PCP - General 09/25/12 12/07/18 [address] [place] [address] documented as of this encounter
--- OUTSIDE RECORDS SUMMARY | 2022-06-15 07:54 | XMS_ITS | Encounter Summary ---
:1975 Author Organization [facility] Address [address] [place] [address] Care Team Providers Name Role Phone Juma Herrera MD Primary Care Provider Unavailable Encounter Details Date Type Department Care Team Description 02/10/2015 Hospital Encounter [facility] Cheng Lamar, [facility] - [address] [address] [address], [place] [phone] (Wo rk) Social History Tobacco Use Types [...] Reading Time Taken Comments Blood Pressure 133/79 02/10/2015 1216 EDT Pulse - - Temperature 36.5 ??C (97.7 ??F) 02/10/2015 1200 EDT Respiratory Rate 15 02/10/2015 1216 EDT Oxygen Saturation 99% 02/10/2015 1216 EDT Inhaled Oxygen Concentration - - Weight 134.7 kg (297 lb) 02/03/2015 1302 EDT Height 172.7 cm (5' 7.99) 02/03/2015 1302 EDT Body Mass Index 45.17 02/03/2015 1302 EDT documented in this encounter Medications at Time of Discharge Medication Sig Dispensed Refills Start Date End Date duloxetine (CYMBALTA) 30 mg Take 90 mg by mouth daily Take with 60mg cap to =90mg dose 0 05/16/2011 capsule methylphenidate (RITALIN SR; Take by mouth 2 0 METADATE ER; METHYLIN ER) 20 times daily. mg SR tablet Takes 20 mg every morning, 20 mg every afternoon, 10 mg every evening. pregabalin (LYRICA) 50 mg Take 2 Caps by 180 Cap 3 2011 capsule mouth 3 times daily. ACETAMINOPHEN (TYLENOL ORAL) Take 650 mg by 0 09/07/2015 mouth as needed. HYDROcodone-acetaminophen Take 1 Tab by 60 Each 0 014 08/15/2015 (NORCO) 5-325 mg per tablet mouth every 6 hours as needed for Pain. oxyCODONE (ROXICODONE) 5 mg Take 10 mg by 0 09/07/2015 immediate release tablet mouth every 4 hours. prochlorperazine (COMPAZINE) Take 1 Tab by 10 Tab 2 09/0308/31/2015 10 mg tablet mouth every 6 hours as needed for Nausea. PROPRANOLOL HCL (PROPRANOLOL Take 120 mg by mouth daily 0 01/28/2019 ORAL)Indications: migraine rizatriptan (MAXALT) 10 mg Take 10 mg by 0 12/18/2021 tablet mouth once as needed. May repeat in 2 hours if needed documented as of this encounter Discharge Disposition Disposition Code Departure Means Destination Home or Self Care documented in this encounter H&P Notes Cheng Lamar MD - 02/10/2015 1152 EDT Endoscopy Sedation for Procedure History & Physical Date: 02/10/2015 Time: 11:52 Location: [facility] Planned Procedure: Gastroscopy Chief Complaint/Indications for Procedure: abdominal pain History Previous Complication with Sedation and/or Anesthesia? No Allergies: Allergies Allergen Reactions ??? Adhesive Other (See Comments) Skin irritation ??? Bee Sting [Hymenoptera Allergenic Extract] Swelling Fever and vomiting ??? Codeine Hives and Nausea And Vomiting Current Medications: Current Facility-Administered Medications Medication Route Frequency ??? lactated ringers (LR) infusion intravenous CONTINUOUS ??? sodium chloride 0.9 % (NS) infusion intravenous CONTINUOUS Past Medical History: Past Medical History Diagnosis Date ??? Bipolar [...] ??? Tarsal tunnel syndrome ??? Generalized headaches ??? Mental disorder Social History: Past Surgical History Procedure Laterality Date ??? Spinal fusion L5-S1 Dr. Child 2006 ??? Laminectomy L5-S1 Dr. Bowers 1999 ??? Cholecystectomy ??? Tubal ligation ??? Back surgery History Substance Use Topics ??? Smoking status: Former Smoker Quit date: 01/13/2009 ??? Smokeless tobacco: Not on file ??? Alcohol Use: Yes Comment: very rarely Family History: Family History Problem Relation Age of Onset ??? Depression Other ??? Heart Disease Other ??? Psoriasis Other ??? Thyroid Disease Other ??? High Blood Pressure Other Review of Systems as pertinent: Physical Exam Vital Signs: BP 132/84 Temp(Src) 36.6 ??C (97.9 ??F) (Tympanic) Resp 18 Ht 172.7 cm (67.99) Wt 134.718 kg (297 lb) BMI 45.17 kg/m2 SpO2 97% Heart Examination: Cardiac Regularity: Regular Respiratory Examination: Respiratory Pattern: Regular Breath Sounds Right: Clear Breath Sounds Left: Clear Abdominal Examination: Soft, non-tender, bowel sounds normal, no masses, no organomegaly Additional physical exam related to the proposed procedure, patient activity, disease state and treatment as pertinent: Assessment Previous complications with sedation or anesthesia?: No Airway Concerns: None Anesthesia Classification: ASA 3 Plan: Proceed with sedation for procedure Fasting Time: Time of last liquid intake: (rinsed mouth with water but didn't swallow) Date of Last Liquid Intake: 02/09/15 Date of last solid intake: 02/09/15 Patient Appropriate Candidate for Planned Sedation?: Yes Cheng Lamar MD 02/10/2015 11:52 documented in this encounter Miscellaneous Notes Anesthesia Post-Eval - Tracy Cox - 02/10/2015 1434 EDT Post Anesthesia Evaluation Note Date of Service: 02/10/2015 Tia Spain, a 39 y.o. year old female has received MAC today. She has been evaluated, assessed and discharged from anesthesia care with stable cardiorespiratory function and alert mental status. The last set of recorded vital signs and pain rating were reviewed: ,Numeric Pain Level (Scale 1-10): 1 (continues to denile need for tx) Tia Spain participated in this evaluation unless otherwise noted. Her pain, nausea and vomitinghave been managed and her body temperature and fluid balance have been restored. Additional monitoring and assessment needs have been addressed. If present, any postoperative events are documented below. Tracy Cox MD 02/10/2015 14:34 documented in this encounter Plan of Treatment Upcoming Encounters Date Type Specialty Care Team Description 06/25/2022 Telemedicine Neurology Kj Gloria MD PhD 1 [facility] [address] [place], [place] [phone] (Jayjay anaya) 09/06/2022 Procedure visit Pain Medicine Catalino Garrett M D [address] [facility] [address] [place] [address] (Jayjay anaya) 09/21/2022 Office Visit Bariatrics Allen Thompson PA-C [address] [facility], [facility], [address] [place], [place] [address] (Jayjay anaya) documented as of this encounter Procedures Procedure Name Priority Date/Time Associated Diagnosis Comme nts PROCEDURE REPORTS - 02/11/2015 0:36 EDT R esults for this SCANNED procedure are i n the results section. documented in this encounter Results PROCEDURE REPORTS - SCANNED (02/11/2015 0:36 EDT) Specimen Narrative This result has an attachment that is no t available. documented in this encounter Visit Diagnoses Not on filedocumented in this encounter Administered Medications Inactive Administered Medications - up to 3 most recent administrations Medication Order MAR Action Action Date Dose Rate Site lactated ringers (LR) infusion New Bag 02/10/2015 11:20 EDT 30 mL/hr 30 mL/hr at 30 mL/hr, 30 mL/hr, intravenous, CONTINUOUS, Starting on Karen 02/10/15 at 1115, Until Karen 02/10/15 at 1431, Routine, Preprocedure documented in this encounter Discontinued Medications Medication Sig Discontinue Reason Start Date End Date cholecalciferol, Vitamin Take 1,000 Units Patient Stopped 02/03/2015 D3, 1,000 unit tablet by mouth 2 times Taking daily. duloxetine (CYMBALTA) 60 Take 60 mg by Duplicate Therapy 02/03/2015 mg capsule mouth daily. Take with 30mg cap to = 90mg dose meloxicam (MOBIC) 7.5 mg Take 1 Tab by Patient Stopped 05/04/2014 02/03/2015 tablet mouth daily. Taking methylphenidate (RITALIN) Take 10 mg by Duplicate Therapy 02/03/2015 10 mg tablet mouth daily. methylPREDNISolone (MEDROL follow package Therapy completed 014 02/03/2015 DOSEPACK) 4 mg tablet directions [place]-3 Fatty Take 1,000 mg by Patient Stopped 015 Acids-Vitamin E (FISH OIL) mouth 2 times Taking 1,000 mg cap daily. topiramate (TOPAMAX) 100 Take 200 mg by Discontinued by 02/03/2015 mg tablet mouth 2 times another clinician daily. documented as of this encounter Active and Recently Administered Medications Times are shown in EDT. Continuous Medication Order 02/08/2015 02/09/2015 02/10/2015 lactated ringers (LR) infusion (CANCELED) 1120 (New Bag - Provider: Kari Amos, ALEXANDER)1222 (Completed - Provider: Zina Rosado RN) at 30 mL/hr, 30 mL/hr, intravenous, CONT INUOUS, Starting Karen 02/10/15 at 1115, Until Akren 02/10/15 at 1431, Routine documented in this encounter Orders Medications Ordered That Might Not Have Count Last Ord ered Date First Ordered Date Been Administered sodium chloride 0.9 % (NS) infusion 1 02/10/2015 Transfer Count Last Ordered Date First Ordered Date NOTIFY PPS OF DISCHARGE COMPLETE 1 02/10/2015 documented in this encounter Care Teams Senior Executive Assistant Relationship Specialty Start Date End Date Juma Herrera MD PCP - General 09/25/12 12/07/18 [address] [place] [address] documented as of this encounter
--- OUTSIDE RECORDS SUMMARY | 2022-06-15 07:54 | XMS_ITS | Encounter Summary ---
:[address] [facility] Address [address] [place] [address] Care Team Providers Name Role Phone Juma Herrera MD Primary Care Provider Unavailable Reason for Referral Radiology Services (Routine/Next Available) - Closed Specialty Diagnoses / Procedures Referred By Contact Refer red To Contact Diagnoses Neck pain Kj Song PA-C Procedures CERVICAL SPINE 4 OR MORE VIEWS [address] [facility] [place] [address] Referral ID Status Reason Start Date Expiration Date Visits Requ ested Visits Authorized [id number] Closed 09/10/2013 1 1 Reason for Visit Reason Comments Neck Pain Encounter Details Date Type Department Care Team Description 09/10/2013 Office Visit [facility] Kj Song Neck p ain (Primary Dx); Spine Program - PAVladimir Cervical radiculopathy [facility] [address] [facility] [address] [facility] [place] [address] [place] [address] (Wo rk) Social History Tobacco Use [...] - Inhaled Oxygen Concentration - - Weight 136.1 kg (300 lb) 09/10/2013 1000 EST Height 172.7 cm (5' 8) 09/10/2013 1000 EST Body Mass Index 45.61 09/10/2013 1000 EST documented in this encounter Ordered Prescriptions Prescription Sig Dispensed Refills Start Date End Date HYDROcodone-acetaminophen Take 1 Tab by 60 Each 0 014 08/15/2015 (NORCO) 5-325 mg per tablet mouth every 6 hours as needed for Pain. methylPREDNISolone (MEDROL follow package 1 Each 0 09/1002/03/2015 DOSEPACK) 4 mg tablet directions documented in this encounter Progress Notes Kj Song PA - 09/10/2013 1050 EST The patient is status post C6-7 anterior diskectomy and fusion with interbody graft, Synthes plate performed by Dr Child on September 29, 2012. Postop, she had improved neck and arm symptoms, but over the last 2 weeks she had acute onset of right upper extremity achiness that radiates to the periscapular area, deltoid, humerus, dorsum of the forearm and into the thumb, index and middle finger. This isconstant, vacillating in intensity and gradually increasing and very uncomfortable. She states that everything exacerbates her pain. She finds some relief with lying down on her left side. She has not seen a physical therapist, received career development engineer, injection therapy and 50% of her discomfort is focused in the C-spine, 50% in the arm. OBJECTIVE: Range of motion of the C-spine is diminished. Spurling's maneuver is negative. Upper extremity strength: Right upper extremity 4/5 throughout. Sensation to soft touch diminished at the humerus, dorsum of the forearm, the thumb, index, middle and ring finger. Reflexes are 1. Radial pulse is 2. Brittaney sign is negative. RADIOGRAPHS: AP and lateral flex/ex cervical films reveal 7 non-rib bearing cervical vertebrae with prior fixation at C6-7. No signs of hardware failure. Lateral view reveals prior fusion at 6-7. No significant adjacent segment degeneration. No instability in flexion/extension. ASSESSMENT: A 38-year-old female with neck, right upper extremity symptoms likely C6 radiculopathy, possibly a herniated nucleus pulposus at 5-6, it is a little too soon to tell for sure. PLAN: 1. Medrol Dosepak. 2. I gave her a prescription for Vicodin 1 q. 6, 60 tabs. 3. Activity as tolerated. 4. She will phone follow up with us once she completes the Medrol Dosepak, gives us an update on hersymptoms. If no relief, we will move forward with an MR of the C-spine and follow up with her post. I spent 30 minutes, with 25 minutes of my time spent face to face discussing symptoms, subjective complaints, and treatment options. documented in this encounter Plan of Treatment Upcoming Encounters Date Type Specialty Care Team Description 06/25/2022 Telemedicine Neurology Kj Gloria MD PhD 1 [facility], [address] [place], [place] [phone] (Jayjay anaya) 09/06/2022 Procedure visit Pain Medicine Catalino Garrett M D [address] [facility] [address] [place] [address] (Jayjay anaya) 09/21/2022 Office Visit Bariatrics Allen Thompson PA-C [address] [facility], [address] [place], [place] [address] (Jayjay anaya) documented as of this encounter Procedures Procedure Name Priority Date/Time Associated Diagnosis Comme nts CERVICAL SPINE 4 OR Routine 09/10/2013 10:35 Neck pain Resu lts for this MORE VIEWS EST procedure are i n the results section. documented in this encounter Results CERVICAL SPINE 4 OR MORE VIEWS (09/10/2013 10:35 EST) Anatomical Region Laterality Modality Other Specimen Narrative [facility] - 05/2014 11:53 EST Plain film cervical spine : Neck pain Comparison: March 20, 2013 Findings: 4 views. Anterior screw and pl ate fixation is present at C6-7 with intervertebral bone graft. The re is no evidence of hardware failure or periprosthetic lucency to sug gest loosening. The density of the intervertebral bone graft is hete rogeneous. The endplates are indistinct. The prevertebral soft tissue s and craniocervical junction are within normal limits. There are prog ressive marginal osteophytes at the C5-6 level. Flexion and extension show no instabilit y. The lung apices are clear Conclusion: Post C6-7 anterior screw and plate fixat ion with intervertebral bone graft. The indistinct margins of the end plates suggest at least partial incorporation of the interverteb ral bone graft Progressive degenerative disc disease at C5-6. No instability. Procedure Note 09/10/2013 Plain film cervical spine : Neck pain Comparison: March 20, 2013 Findings: 4 views. Anterior screw and pl ate fixation is present at C6-7 with intervertebral bone graft. The re is no evidence of hardware failure or periprosthetic lucency to sug gest loosening. The density of the intervertebral bone graft is hete rogeneous. The endplates are indistinct. The prevertebral soft tissue s and craniocervical junction are within normal limits. There are prog ressive marginal osteophytes at the C5-6 level. Flexion and extension show no instabilit y. The lung apices are clear Conclusion: Post C6-7 anterior screw and plate fixat ion with intervertebral bone graft. The indistinct margins of the end plates suggest at least partial incorporation of the interverteb ral bone graft Progressive degenerative disc disease at C5-6. No instability. Performing Organization Address City/State/ZIP Code Phon e Number [facility] documented in this encounter Visit Diagnoses Diagnosis Neck pain - Primary Cervicalgia Cervical radiculopathy Brachial neuritis or radiculitis nos documented in this encounter Care Teams Furniture Servicer Relationship Specialty Start Date End Date Juma Herrera MD PCP - General 09/25/12 12/07/18 [address] [place] [address] documented as of this encounter
--- OUTSIDE RECORDS SUMMARY | 2022-06-15 07:54 | XMS_ITS | Encounter Summary ---
:1975 Author Organization [facility] Address [address] [place] [address] Care Team Providers Name Role Phone Juma Herrera MD Primary Care Provider Unavailable Reason for Visit Reason Comments Obesity H Encounter Details Date Type Department Care Team Description 08/19/2015 Office Visit [facility] Master Ugarte examination Bariatric Surgery - MD Marques (Primary Dx) [address] [address] [place], [place] [phone] Social History Tobacco Use Types Packs/Day [...] - Inhaled Oxygen Concentration - - Weight 126.5 kg (278 lb 12.8 oz) 08/19/2015 1027 EST Height 168.5 cm (5' 6.34) 08/19/2015 1027 EST Body Mass Index 44.54 08/19/2015 1027 EST documented in this encounter Progress Notes Master Ugarte MD - 08/19/2015 1104 EST Consented Nl ge jxn Needs breath test Nl e gram documented in this encounter Plan of Treatment Upcoming Encounters Date Type Specialty Care Team Description 06/25/2022 Telemedicine Neurology Kj Gloria MD PhD 1 [facility], [address] [place], [place] [phone] (Wo rk) 09/06/2022 Procedure visit Pain Medicine Catalino Garrett M D [address] [facility] [address] [place] [address] (Wo rk) 09/21/2022 Office Visit Bariatrics Allen Thompson PA-C 111 [facility], [facility], [address] [place], [place] [address] (Wo rk) documented as of this encounter Visit Diagnoses Diagnosis Preop examination - Primary Preoperative examination, unspecified documented in this encounter Care Teams Program Manager Relationship Specialty Start Date End Date Juma Herrera MD PCP - General 09/25/12 12/07/18 [address] [place] [address] documented as of this encounter
--- OUTSIDE RECORDS SUMMARY | 2022-06-15 07:54 | XMS_ITS | Encounter Summary ---
:1975 Author Organization [facility] Address [address] [place] [address] Care Team Providers Name Role Phone Juma Herrera MD Primary Care Provider Unavailable Reason for Referral Consult, Test and Treat (Routine) - Specialty Report Received Specialty Diagnoses / Procedures Referred By Contact Refer red To Contact Diagnoses GERD (gastroesophageal reflux disease) Master Ugarte Richar d S, MD Procedures UPPER ENDOSCOPY MD Marques [address] [place] [phone] [place], [address] [place] [address] Phone: Fax: Referral ID Status Reason Start Date Expiration Date Visits V isits Requested Authorized [id number] Specialty 01/28/2015 1 1 Report Received Reason for Visit Reason Comments Obesity Pre Op F/U EGD and Esophagra m Encounter Details Date Type Department Care Team Description 01/28/2015 Office Visit [facility] Master Ugarte GERD (gastroesophageal Bariatric Surgery - MD Marques reflux disease) [address] (Primary Dx) [address] [place] [address] [place], [place] [phone] Social History Tobacco Use Types Packs/Day [...] - Inhaled Oxygen Concentration - - Weight 138.6 kg (305 lb 9.6 oz) 01/28/2015 0910 EDT Height 168.5 cm (5' 6.34) 01/28/2015 09 EDT Body Mass Index 48.82 01/28/2015 09 EDT documented in this encounter Progress Notes Master Ugarte MD - 01/28/2015 0945 EDT Unable to pass scope E gram negative Will have gi pass scope May need sbft [place] - 01/28/2015 0921 EDT Medical Nutrition Evaluation-PRE OP NOTE Bariatric Clinic Nutrition Pre-op Visit Visit Number: 2 Desired surgery: Gastric Sleeve/Gastric Bypass Subjective: Food logs: ProPlan Meal pattern:3 melas Average caloric intake:1300 to 1700 Meal composition: Balanced most days, high fat some days Snacking: Exercise: Was using Treadmill daily but is hoping to find some other form of excerise Objective: Weight: 305.4 lbs Weight loss from last visit: -20.2 lbs Total weight loss: Weight loss goal: Total Loss in lbs (Weight from Initial Consult - Today's Weight): 20 lbs Approximately 16 lbs Surgery Date: Significant Medications and Supplements: Assessment: Patient has made progress towards lifestyle changes Comments: Has been keeping food logs and exercising on most days. Has given up soda, junk foods and also gave up red meat. Plan: Diet Goals: Include protein at least 3 times a day, Keep food records, Calorie goal 1600 and Increase fruit and vegetables Exercise Goals: Exercise as allowed by PT Weight Loss Goal: Approximately 16 lbs Weight Loss Remaining to Goal: Approximately met goal Reviewed: Food/Activity Record Next Visit: Pre-op follow-up visit documented in this encounter Plan of Treatment Upcoming Encounters Date Type Specialty Care Team Description 06/25/2022 Telemedicine Neurology Kj Gloria MD PhD 1 [facility], [address] [place], [place] [phone] (Wo rk) 09/06/2022 Procedure visit Pain Medicine Catalino Garrett M D [address] [facility] [address] [place] [address] (Wo rk) 09/21/2022 Office Visit Bariatrics Allen Thompson PA-C 111 [facility], [facility], [address] [place], [place] [address] (Wo rk) Scheduled Orders Name Type Priority Associated Diagnoses Order S chedule UPPER ENDOSCOPY GI Routine GERD (gastroesophageal re flux Ordered: 01/28/2015 disease) documented as of this encounter Visit Diagnoses Diagnosis GERD (gastroesophageal reflux disease) - Primary Esophageal reflux documented in this encounter Care Teams Corporate Human Resources Manager Relationship Specialty Start Date End Date Juma Herrera MD PCP - General 09/25/12 12/07/18 [address] [place] [address] documented as of this encounter
--- OUTSIDE RECORDS SUMMARY | 2022-06-15 07:54 | XMS_ITS | Encounter Summary ---
:1975 Author Organization [facility] Address [address] [place] [address] Care Team Providers Name Role Phone Juma Herrera MD Primary Care Provider Unavailable Encounter Details Date Type Department Care Team Description 01/18/2015 Hospital Encounter [facility] Endoscopy Outpatient MD Marques [id number] [place] [address] [phone] (Wo rk) Social History Tobacco Use Types [...] Sign Reading Time Taken Comments Blood Pressure 101/55 01/18/2015 0853 EDT Pulse - - Temperature 35.4 ??C (95.7 ??F) 01/18/2015 0827 EDT Respiratory Rate 16 01/18/2015 0853 EDT Oxygen Saturation 100% 01/18/2015 0853 EDT Inhaled Oxygen Concentration - - Weight 134.7 kg (297 lb) 01/18/2015 0733 EDT Height 172.7 cm (5' 8) 01/18/2015 0733 EDT Body Mass Index 45.16 01/18/2015 0733 EDT documented in this encounter Discharge Diagnoses Diagnosis 530.81 ESOPHAGEAL REFLUX[ICD-9-CM] documented in this encounter Medications at Time [...] 0 09/1002/03/2015 DOSEPACK) 4 mg tablet directions [place]-3 Fatty Acids-Vitamin Take 1,000 mg by 0 02/03/2015 E (FISH OIL) 1,000 mg cap mouth 2 times daily. oxyCODONE (ROXICODONE) 5 mg Take 10 mg by 0 09/07/2015 immediate release tablet mouth every 4 hours. prochlorperazine Take 1 Tab by 10 Tab 2 09/29/201208/31 (COMPAZINE) 10 mg tablet mouth every 6 hours as needed for Nausea. PROPRANOLOL HCL Take 120 mg by mouth [...] Care documented in this encounter H&P Notes Master Ugarte MD - 01/18/2015 0804 EDT Endoscopy Sedation for Procedure History & Physical Date: 01/18/2015 Time: 8:04 Location: 4 Endo Planned Procedure: Gastroscopy Chief Complaint/Indications for Procedure: pre bariatric surgery History Previous Complication with Sedation and/or Anesthesia? No Allergies: Allergies Allergen Reactions ??? Adhesive Other (See Comments) Skin irritation ??? Bee Sting [Hymenoptera Allergenic Extract] Swelling Fever and vomiting ??? Codeine Hives and Nausea And Vomiting Current Medications: Current Outpatient Prescriptions Medication Sig Dispense Refill [...] needed for Pain. 60 Each 0 ??? meloxicam (MOBIC) 7.5 mg tablet Take 1 Tab by mouth daily. 30 Tab 2 ??? methylphenidate (RITALIN SR; METADATE ER; METHYLIN ER) 20 mg SR tablet Take by mouth 2 times daily. Takes 20 mg every morning, 20 mg every afternoon, 10 mg every evening. ??? methylphenidate (RITALIN) 10 mg tablet Take 10 mg by mouth daily. ??? methylPREDNISolone (MEDROL DOSEPACK) 4 mg tablet follow package directions 1 Each 0 ??? [place]-3 Fatty Acids-Vitamin E (FISH OIL) 1,000 mg [...] needed for Nausea. 10 Tab 2 ??? PROPRANOLOL HCL (PROPRANOLOL ORAL) Take by mouth daily ??? rizatriptan (MAXALT) 10 mg tablet Take 10 mg by mouth once as needed. May repeat in 2 hours if needed ??? topiramate (TOPAMAX) 100 mg tablet Take 200 mg by mouth 2 times daily. Current Facility-Administered Medications Medication Route Frequency ??? lactated ringers (LR) infusion intravenous CONTINUOUS Past Medical History: Past [...] as pertinent: Physical Exam Vital Signs: BP 116/37 Temp(Src) 35.1 ??C (95.2 ??F) (Tympanic) Resp 16 Ht 172.7 cm (68) Wt134.718 kg (297 lb) BMI 45.17 kg/m2 SpO2 100% Heart Examination: Cardiac Regularity: Regular Respiratory Examination: Respiratory Pattern: Regular Breath Sounds Right: Clear Breath Sounds Left: Clear Abdominal Examination: Soft, non-tender, bowel sounds normal, no masses, no organomegaly Additional physical exam related to the proposed procedure, patient activity, disease state and treatment as pertinent: Assessment Previous complications with sedation or anesthesia?: No Airway Concerns: None Anesthesia Classification: ASA 2 Plan: Proceed with sedation for procedure Fasting Time: Time of last liquid intake: 0300 Date of Last Liquid Intake: 01/18/15 Time of last solid intake: 1999 Date of last solid intake: 01/17/15 Patient Appropriate Candidate for Planned Sedation?: Yes Master Ugarte MD 01/18/2015 8:04 Albert Benedict MD - 01/18/2015 0758 EDT Endoscopy Sedation for Procedure History & Physical Date: 01/18/2015 Time: 7:58 Location: [facility] Endo Planned Procedure: Gastroscopy Chief Complaint/Indications for Procedure: Morbid obesity History Previous Complication with Sedation and/or Anesthesia? No Allergies: Allergies Allergen Reactions ??? Adhesive Other (See Comments) Skin irritation ??? Bee Sting [Hymenoptera Allergenic Extract] Swelling Fever and vomiting ??? Codeine Hives and Nausea And Vomiting Current Medications: Current Outpatient Prescriptions Medication Sig Dispense Refill [...] needed for Pain. 60 Each 0 ??? meloxicam (MOBIC) 7.5 mg tablet Take 1 Tab by mouth daily. 30 Tab 2 ??? methylphenidate (RITALIN SR; METADATE ER; METHYLIN ER) 20 mg SR tablet Take by mouth 2 times daily. Takes 20 mg every morning, 20 mg every afternoon, 10 mg every evening. ??? methylphenidate (RITALIN) 10 mg tablet Take 10 mg by mouth daily. ??? methylPREDNISolone (MEDROL DOSEPACK) 4 mg tablet follow package directions 1 Each 0 ??? [place]-3 Fatty Acids-Vitamin E (FISH OIL) 1,000 mg [...] needed for Nausea. 10 Tab 2 ??? PROPRANOLOL HCL (PROPRANOLOL ORAL) Take by mouth daily ??? rizatriptan (MAXALT) 10 mg tablet Take 10 mg by mouth once as needed. May repeat in 2 hours if needed ??? topiramate (TOPAMAX) 100 mg tablet Take 200 mg by mouth 2 times daily. Current Facility-Administered Medications Medication Route Frequency ??? lactated ringers (LR) infusion intravenous CONTINUOUS Past Medical History: Past [...] as pertinent: Physical Exam Vital Signs: BP 116/37 Temp(Src) 35.1 ??C (95.2 ??F) (Tympanic) Resp 16 Ht 172.7 cm (68) Wt134.718 kg (297 lb) BMI 45.17 kg/m2 SpO2 100% Heart Examination: Cardiac Regularity: Regular Respiratory Examination: Respiratory Pattern: Regular Breath Sounds Right: Clear Breath Sounds Left: Clear Abdominal Examination: Soft, non-tender, bowel sounds normal, no masses, no organomegaly Additional physical exam related to the proposed procedure, patient activity, disease state and treatment as pertinent: Assessment Previous complications with sedation or anesthesia?: No Airway Concerns: [place] Anesthesia Classification: ASA 2 Plan: Proceed with sedation for procedure Fasting Time: Time of last liquid intake: 030 Date of Last Liquid Intake: 01/18/15 Time of last solid intake: 1999 Date of last solid intake: 01/17/15 Patient Appropriate Candidate for Planned Sedation?: Yes Albert Carney MD 01/18/2015 7:58 documented in this encounter Plan of Treatment Upcoming Encounters Date Type Specialty Care Team Description 06/25/2022 Telemedicine Neurology Kj Gloria MD PhD 1 [facility] [address], [place] [address] (Jayjay anaya) 09/06/2022 Procedure visit Pain Medicine Catalino Garrett M D [address] [facility] [address] [place] [address] (Wo héctor) 09/21/2022 Office Visit Bariatrics Allen Thompson PA-C 111 [facility], [address], [place] [address] (Wo héctor) documented as of this encounter Procedures Procedure Name Priority Date/Time Associated Diagnosis Comme nts PROCEDURE REPORTS - 01/19/2015 0:36 EDT R esults for this SCANNED procedure are i n the results section. documented in this encounter Results PROCEDURE REPORTS - SCANNED (01/19/2015 0:36 EDT) Specimen Narrative This result has an attachment that is no t available. documented in this encounter Visit Diagnoses Not on filedocumented in this encounter Administered Medications Inactive Administered Medications - up to 3 most recent administrations Medication Order MAR Action Action Date Dose Rate Site fentaNYL citrate (PF) 50 mcg/mL Given 01/18/2015 8:21 EDT 150 mc g injection 100-150 mcg 100-150 mcg, intravenous, ONCE PRN, 1 dose, Starting on Sat01/18/15 at 0806, Until Sat01/18/15 at 0821, Other, sedation, Routine, Intraprocedure lactated ringers (LR) infusion New Bag 01/18/2015 7:52 EDT 25 mL/hr at 25 mL/hr, intravenous, CONTINUOUS, Starting on Sat01/18/15 at 0815, Until Sat01/18/15 at 1122, Routine midazolam (PF) (VERSED) 1 mg/mL injectio n 1-3 mg Given 01/18/2015 8:22 EDT 3 mg 1-3 mg, intravenous, ONCE PRN, 1 dose, Starting on Sat01/18/15 at 0806, Until Sat01/18/15 at 0822, Sedation, Routine, Intraprocedure documented in this encounter Historical Medications This list may reflect changes made after this encounter. Medication Sig Dispensed Refills Start Date End Date PROPRANOLOL HCL Take 120 mg by mouth daily 0 01/28/2019 (PROPRANOLOL ORAL)Indications: migraine added in this encounter Orders Medications Ordered That Might Not Have Count Last Ord ered Date First Ordered Date Been Administered lactated ringers (LR) infusion 1 01/18/2015 Transfer Count Last Ordered Date First Ordered Date NOTIFY PPS OF DISCHARGE COMPLETE 1 01/18/2015 Discharge Count Last Ordered Date First Ordered Date DISCHARGE PATIENT 1 01/18/2015 documented in this encounter Care Teams Life Claims Examiner Relationship Specialty Start Date End Date Juma Herrera MD PCP - General 09/25/12 12/07/18 [address] [place] [address] documented as of this encounter
--- OUTSIDE RECORDS SUMMARY | 2022-06-15 07:54 | XMS_ITS | Encounter Summary ---
:1975 Author Organization [facility] Address [address] [place] [address] Care Team Providers Name Role Phone Juma Herrera MD Primary Care Provider Unavailable Reason for Visit Reason Onset Date Comments Results 08/24/2015 Encounter Details Date Type Department Care Team Description 08/24/2015 Telephone [facility] Bariatric Surgery Mary Rosales RN Results - [address] [phone] Social History Tobacco Use Types Packs/Day Years [...] Telephone Encounter - Mary Rosales RN - 08/24/2015 1315 EST LMOVM stating that H. Pylori breath test is NEGATIVE. documented in this encounter Plan of Treatment Upcoming Encounters Date Type Specialty Care Team Description 06/25/2022 Telemedicine Neurology Kj Gloria MD PhD 1 [facility] [address] [place], [place] [phone] (Wo rk) 09/06/2022 Procedure visit Pain Medicine Catalino Garrett M D [address] [facility] [address] [place] [address] (Wo rk) 09/21/2022 Office Visit Bariatrics Allen Thompson, ELISABETH [address] [facility], [facility], [address] [place], [place] [address] (Wo rk) documented as of this encounter Visit Diagnoses Not on filedocumented in this encounter Care Teams Director Oncology Relationship Specialty Start Date End Date Juma Herrera MD PCP - General 09/25/12 12/07/18 [address] [place] [address] documented as of this encounter
--- OUTSIDE RECORDS SUMMARY | 2022-06-15 07:54 | XMS_ITS | Encounter Summary ---
:1975 Author Organization [facility] Address [address] [place] [address] Care Team Providers Name Role Phone Juma Herrera MD Primary Care Provider Unavailable Reason for Visit Reason Comments Obesity Pre Op F/U EGD with jose Encounter Details Date Type Department Care Team Description 03/10/2015 Office Visit [facility] Master Ugarte Edwardo id obesity with Bariatric Surgery - MD Marques BMI of 45.0-49.9, [place] [address] [facility] adult ([facility]) [address] (Primary Dx) [place] [address] [place] [phone] Social History Tobacco Use Types Packs/Day [...] - Inhaled Oxygen Concentration - - Weight 133.9 kg (295 lb 3.2 oz) 03/10/2015 1419 EDT Height 168.5 cm (5' 6.34) 03/10/2015 1419 EDT Body Mass Index 47.16 03/10/2015 1419 EDT documented in this encounter Progress Notes Dayna Cruz RD - 03/10/2015 1442 EDT Medical Nutrition Evaluation-PRE OP NOTE Bariatric Clinic Nutrition Pre-op Visit Visit Number: 3 Desired surgery: Undecided Subjective: Food logs: Has them on her phone--keeping within 1600 calories although sometimes choosing higher fat items Meal pattern: WNL Average caloric intake: 1600 Meal composition/Snacking: has some emotional eating with affects food choices and intake Exercise: has been told not to walk due to knees from . She is allowed to use stationary bike which she has at home but hasn't found the time. Admits she could find the time, but needs the motivation Objective: Weight: 295.2 lbs Weight loss from last visit: -10.4lbs Total weight loss: Weight loss goal: Total Loss in lbs (Weight from Initial Consult - Today's Weight): 30.4 lbs Approximately 16 lbs Surgery Date: Significant Medications and Supplements: n/a Assessment: Patient has met weight loss requirement for surgery Comments: We spent most of our time discussing how to motivate herself to use the stationary bike-including music and having a specific television program as she will watch tv currently, sitting not far from the bike. We also discussed ideas about food choices with multiple get togethers, BBQ's etc...Where she states many bring chips and other items which she has trouble resisting. Encouraged her tofocus on protein, then vegetable, then a small amount of starch food. Discussed emotional eating and encouraged her to limit less healthy foods from her home. Plan: Diet Goals: Focus on identifying emotional eating and choose better options; picnic/BBQ eating ideas Exercise Goals: Plan exercise on the stationary bike to meet goal of 150 minutes/week --consider useof biking during a specific tv show Weight Loss Goal: Has met Weight Loss Remaining to Goal: has met Reviewed: Food/Activity Record Next Visit: Pre-op follow-up visit Dayna Cruz RD Master guadalupe MD - 03/10/2015 1426 EDT 03/10/2015 SUBJECTIVE: Tia returns to our office today for continued medically supervised weight loss in preparation for laparoscopic sleeve gastrectomy surgery. She is a 39 y.o. female with adult-onset obesity. Her comorbidities include osteoarthritis. Otherwise, she denies any changes to her medical history or medications since his previous visit. Tia met with our program dietitian for 30 minutes to review preoperative dietary recommendations.I consulted with the dietitian following her visit with the patient and agree with her findings and recommendations. OBJECTIVE: On physical examination today, her Ht 168.5 cm (66.34) Wt 133.902 kg (295 lb 3.2 oz) BMI 47.16 kg/m2 and Body mass index is 47.16 kg/(m^2).. ASSESSMENT AND PLAN: Tia will return to our office in a few weeks for continued medically-supervised weight loss in preparation for surgery. She understands that: egd and egram noprmal will need h pylori breath test as biopsies were not done with zubarik. Master Ugarte MD documented in this encounter Plan of Treatment Upcoming Encounters Date Type Specialty Care Team Description 06/25/2022 Telemedicine Neurology Kj Gloria MD PhD 1 [facility], [address] [place], [place] [phone] (Jayjay anaya) 09/06/2022 Procedure visit Pain Medicine Catalino Garrett M D [address] [place] [address] [address] [place] [address] (Jayjay anaya) 09/21/2022 Office Visit Bariatrics Allen Thompson PA-C 111 [facility], [facility], [address] [place], [place] [address] (Jayjay anaya) documented as of this encounter Visit Diagnoses Diagnosis Morbid obesity with BMI of 45.0-49.9, ad ult ([facility]) ([facility]) - Primary Morbid obesity documented in this encounter Care Teams Gum Rolling Machine Tender Relationship Specialty Start Date End Date Juma Herrera MD PCP - General 09/25/12 12/07/18 [address] [place] [address] documented as of this encounter
--- OUTSIDE RECORDS SUMMARY | 2022-06-15 07:54 | XMS_ITS | Encounter Summary ---
:1975 Author Organization [facility] Address [address] [place] [address] Care Team Providers Name Role Phone Alejandra Trevino MD Primary Care Provider Unavailable Encounter Details Date Type Department Care Team Description 05/06/2014 Results Only [facility] Dariela Stiles MD Laboratory Services - [address] [place] [address] [place] [address] Social History Tobacco Use Types Packs/Day [...] Telemedicine Neurology Kj Gloria MD PhD 1 [facility] [address] [place], [place] [address] (Jayjay anaya) 09/06/2022 Procedure visit Pain Medicine Catalino Garrett M D [address] [facility] [address] [place] [address] (Wo héctor) 09/21/2022 Office Visit Bariatrics Allen Thompson, PALizettC [address] [facility], [facility], [address] [place], [place] [address] (Wo rk) documented as of this encounter Procedures Procedure Name Priority Date/Time Associated Diagnosis Comme nts PAP TEST- RESULT Routine 05/06/2014 0:00 EDT Resu lts for this ONLY procedure are i n the results section. documented in this encounter Results PAP TEST- RESULT ONLY (05/06/2014 0:00 EDT) Pathology Report: CYTOPATHOLOGY REPORT [facility] Reports generated via electronic interface contain efrain ginal data; however they are lacking the format of the original re port. Caution should be taken when reading/interpreting unfo rmatted reports. Name: ? TIA HITCHCOCK ? Accession #: ? [id number] ? : ? 1975 (Age: 38) ??F ?Collect Da te: ? 05/06/2014 ? Location: ? [facility] ? Receive Date: ? 014 ? Provider: DARIELA STILES MD Copy to: ALEJANDRA TREVINO MD ? Final Report SPECIMEN ADEQUACY ? Satisfactory for Evaluation - transformation zone component absent GENERAL CATEGORIZATION ? Negative for Intraepithelial Lesion or Malignan cy INTERPRETATION ? Shift in abram present suggestive of bacterial vaginosis. Hormonal/Contraceptive status: Tubal ligation: Bilater al Specimen/Source: ??Pap Test, Cervix/Endocervix, ThinPr ep Imaging System with manual evaluation Document reviewed and electronically signed by: ? Ana Rosa Reyes, RENE(ASCP) ? Report ??Date: 05/12/2014 13:15 HPV with Pap Test ? Date Ordered: ? 05/12/2014 ? Status: ?? Signed Out ?Date Complete: ? 05/14/2014 ? By: ??S ystem Interface ? Date Reported: ? 05/14/2014 ? Interpretation RESULT: Negative for HPV. No E6 or E7 mRNA is detected from HPV types 16,18,31,3 3,35, 39,45,51,52,56,58,59,66, and 68 by hand cutter media shaina amplification. Comments Document reviewed and electronically signed by: ? System Interface ? Report date: 05/14/2014 By the signature above, the attending physician certif ies that he/she has personally conducted a gross and/or microscopic examin ation of the described specimens and rendered or confirmed the above diagnosi s. End of Report Specimen Performing Organization Address City/State/ZIP Code Phon e Number [facility] [address] [place] [address] [facility] [address] [place] [address] documented in this encounter Visit Diagnoses Not on filedocumented in this encounter Care Teams Housing Counselor Relationship Specialty Start Date End Date Alejandra Trevino MD PCP - General 09/25/12 12/07/18 [address] [place] [address] documented as of this encounter
--- OUTSIDE RECORDS SUMMARY | 2022-06-15 07:54 | XMS_ITS | Encounter Summary ---
:1975 Author Organization [facility] Address [address] [place] [address] Care Team Providers Name Role Phone Juma Herrera MD Primary Care Provider Unavailable Reason for Referral Consult (Routine/Next Available) - Closed Specialty Diagnoses / Procedures Referred By Contact Refer red To Contact Diagnoses Leiesthesia Zachery Walters MD Waheed, Waqar, MD [address] [place] [address] [place] [address] [address] [place] [address] [place] [address] Referral ID Status Reason Start Date Expiration Date Visits V isits Requested Authorized [id number] Closed Specialty 11/05/2012 1 1 Services Required Question Answer Reason for Request: Skin biopsy from right dorso lateral foot, lateral calf and thigh Reason for Visit Reason Comments Follow-up Encounter Details Date Type Department Care Team Description 11/05/2012 Office Visit [facility] Zachery Walters MD Dysesthesia (Primary Neurology - S 1 [facility] Dx) [facility] 1 [facility] 2 [place] [address] [place] [phone] (Wo rk) Social History Tobacco Use [...] Sign Reading Time Taken Comments Blood Pressure 137/77 11/05/2012 1325 EST Pulse 93 11/05/2012 1325 EST Temperature - - Respiratory Rate 16 11/05/2012 1325 EST Oxygen Saturation - - Inhaled Oxygen Concentration - - Weight 127 kg (280 lb) 11/05/2012 1325 EST Height 172.7 cm (5' 8) 11/05/2012 1325 EST Body Mass Index 42.57 11/05/2012 1325 EST documented in this encounter Progress Notes Zachery Walters MD - 11/07/2012 0951 EST NEUROLOGY HEALTH CARE SERVICE PROGRESS/FOLLOWUP NOTE - 11/05/2012 PROBLEM: 4. Numbness and tingling in feet. a. EMG and nerve conduction studies from 08/07/12 showed no polyneuropathy. 5. Neck and right arm pain with right index, middle finger and thumb numbness and tingling. a. EMG/nerve conduction study evidence of old or indolent right C8 radiculopathy. b. C6-C7 anterior cervical diskectomy and fusion with Synthes anterior cervical plate and 4 cervicalscrews on 09/29/[address] Kj Child. SUBJECTIVE: She was seen by me as a new patient on 07/23/12, and returns today for a followup visit.In the interim, she has had surgery on her neck as above by Dr Kj Child, that has taken away the pain in her neck and right arm, but she still has some pain on the inner aspect of her right shoulder blade with at times a bunch appearing there, which is tender and is associated with muscle spasmin that region. She continues to have significant burning discomfort in the feet, especially when she has been up on them for a few hours, and she continues to work with 50% effort. The Lyrica helps her burning discomfort, but has not taken it away completely. INTERVAL MEDICAL HISTORY: As noted above. REVIEW OF SYSTEMS: A 10-point review of systems was significant for some pain in the right shoulder blade area, tingling and burning in her feet, low back pain.Rest were negative. MEDICATIONS: Tylenol 650 mg p.r.n. Vitamin D3 1000 units twice daily. Duloxetine 90 mg daily. Ritalin 20 mg morning and afternoon and 10 mg evening. Fish oil 1000 mg twice daily. Pregabalin 100 mg 3 times daily. Compazine 10 mg q.6 h. p.r.n. Topamax 200 mg twice daily. ALLERGIES: ADHESIVE TAPE that caused skin irritation and bee sting that produced fever and vomiting,along with swelling; CODEINE that produced hives, nausea and vomiting. SOCIAL HISTORY AND FAMILY HISTORY: As documented in the note of 07/23/12 with no change. OBJECTIVE: Pleasant, well-dressed, slightly withdrawn female whose blood pressure was 138/78 mm, pulse was 92 per minute and regular, respirations were 16 per minute and regular. Height was 5 feet 8 inches and weight was 280 pounds with clothes and shoes. There were no carotid bruits audible. Pain rating tool score was 10/10 with pain reported in the back. Heart showed S1 and S2 with no murmurs, clicks or gallops. Lungs were clear to auscultation. Abdomen was obese, benign, nontender with good bowelsounds. Extremities showed no cyanosis, clubbing or edema. She had tattoos on the outer aspect of both legs. LABORATORY DATA: From last visit was reviewed, showing normal or negative values for T3 total, TSH, T4 free, hemoglobin A1c, folate, B1, B6, B12, sed rate, serum immunofixation, urine for monoclonal proteins, comprehensive metabolic panel, and hemogram with differential count. C-reactive protein was slightly elevated at 1.3. EMG and nerve conduction studies done by Dr Sainz on 08/07/12 were reviewed, and showed normal right peroneal, tibial, median and ulnar motor conduction studies including F-wave latencies; normal right superficial peroneal, sural, median and ulnar sensory conduction studies; and needle EMG evidences ofreinnervation in the right extensor carpi ulnaris and first dorsal interosseous muscle of the hand, but several other muscles from her right upper extremity and lower extremity were unremarkable. My interpretation of this EMG is that it shows evidences possibly of a right C7 and C8 nerve root lesion, which is old or chronic, and no evidence of a polyneuropathy or right lumbosacral radiculopathy. ASSESSMENT: Right-sided neck and arm pain, most likely on the basis of C8 radiculopathy, which is improved since recent surgery, and burning dysesthetic pain in her feet that could be possibly on the basis of a small fiber neuropathy. With the latter in mind, I am arranging for her to have some quantit ative sensory testing for warm and cold thresholds in her right hand and foot, and also a skin biopsy to look at intraepidermal nerve fiber density from her right foot, lateral calf sparing the area oftattoo and thigh. There is room to consider going up on her Lyrica dose and I will leave this for Dr Juma Herrera to consider. PLAN: 1. Diagnostic: a. Punch biopsy of skin from right foot, lateral calf and thigh for intraepidermal nerve fiber density. b. Sensory testing on right hand and foot for vibration, warm and cold thresholds. 2. Therapeutic: As above. 3. Return to clinic to see me in 3 months. Electronically Signed by Zachery Walters MD 11/28/2012 10:50 Zachery Walters MD - Zachery Walters MD - Job ID: SM Doc ID: [id number] Ext Doc ID: [id number] cc: GIULIA Byrne MD Zachery Prado MD - 11/05/2012 1354 EST This office note has been dictated. documented in this encounter Plan of Treatment Upcoming Encounters Date Type Specialty Care Team Description 06/25/2022 Telemedicine Neurology Kj Gloria MD PhD 1 [facility], Level [address] [place] [phone] (Wo rk) 09/06/2022 Procedure visit Pain Medicine Catalino Garrett M D [address] [place] [address] (Wo rk) 09/21/2022 Office Visit Bariatrics Allen Thompson PA-C [address] [facility], [facility], [address] [place] [address] (Jayjay anaya) Scheduled Referrals Name Type Priority Associated Diagnoses Order S chedule AMB CONSULT Outpatient Referral Routine Dysesthesia Ordered: NEUROLOGY 11/05/2012 documented as of this encounter Visit Diagnoses Diagnosis Dysesthesia - Primary Disturbance of skin sensation documented in this encounter Discontinued Medications Medication Sig Discontinue Reason Start Date End Date oxycodone (ROXICODONE) 5 Take 1-2 Tabs by 09/29/2012 11/05/2012 mg immediate release mouth every 4 hours tablet as needed for Pain. documented as of this encounter Historical Medications This list may reflect changes made after this encounter. Medication Sig Dispensed Refills Start Date End Date duloxetine (CYMBALTA) 60 Take 60 mg by mouth 0 02/03/2015 mg capsule daily. Take with 30mg cap to = 90mg dose added in this encounter Care Teams Hand Leather Trimmer Relationship Specialty Start Date End Date Juma Herrera MD PCP - General 09/25/12 12/07/18 [address] [place] [address] documented as of this encounter
--- OUTSIDE RECORDS SUMMARY | 2022-06-15 07:54 | XMS_ITS | Encounter Summary ---
:1975 Author Organization [facility] Address [address] [place] [address] Care Team Providers Name Role Phone Juma Herrera MD Primary Care Provider Unavailable Reason for Referral Cardiology (STAT) - Specialty Report Received Specialty Diagnoses / Procedures Referred By Contact Refer red To Contact Diagnoses Preop examination Morbid obesity with BMI of 40.0-44.9, adult ([facility]) Depression GERD without esophagitis Allen Thompson, Procedures EKG 12-LEAD PA-Khushbu [address] [place] [phone] Referral ID Status Reason Start Date Expiration Date Visits V isits Requested Authorized [id number] Specialty 08/19/2015 1 1 Report Received Reason for Visit Reason Comments Obesity H Encounter Details Date Type Department Care Team Description 08/19/2015 Office Visit [facility] Astrid, Preop examination (Primary Dx); Bariatric Surgery - MARGARITA Luque- C Morbid obesity with BMI of 40.0-44.9, ad ult ([facility]); [address] Depression; [address] [facility] [place] [address] [facility] [phone] [address] (Wo rk) Social History Tobacco [...] Sign Reading Time Taken Comments Blood Pressure 138/92 08/19/2015 1013 EST Pulse 110 08/19/2015 1013 EST Temperature - - Respiratory Rate - - Oxygen Saturation - - Inhaled Oxygen Concentration - - Weight 126.3 kg (278 lb 8 oz) 08/19/2015 1013 EST Height 172.7 cm (5' 7.99) 08/19/2015 1013 EST Body Mass Index 42.36 08/19/2015 1013 EST documented in this encounter Patient Instructions Patient InstructionsChutter-Allen Garcia PA - 08/19/2015 10:51 EST Things To Remember For Bariatric Surgery * You will start a full liquid diet 10 days before your surgery and nothing to eat or drink after midnight the night before. * You may take your medication on the morning of surgery with sips of water. See below for the medications you will stop and the ones you will take. * You will arrive 2 hours before surgery. Check in at Admissions then go to Preop Center where you will receive IV antibiotics. * Please bring comfortable bed clothes that you will feel OK walking around the hallways as soon as possible after your surgery (to prevent blood clots). * If you have a CPAP or BIPAP machine, please bring it to the hospital the day of surgery. * After surgery you can expect at least 7 small incisions. * You will have a drain for 1 week following surgery. * You will call to schedule your first post-op appointment after you are discharged from the hospital if you have not scheduled that appointment today. * You will be on Omeprazole for 3 months following surgery. * Remember not to lie down for at least 30 minutes after eating, drinking, or taking medications. * You should not drive a car for the first 2 weeks after surgery. * You should not lift anything over 15 pounds for the first 6 weeks after surgery. Medication Changes for Surgery: You will stop all supplements and NSAIDs (advil, motrin, ibuprofen, naproxyn, aleve, celebrex, mobic, etc) 6 days before surgery. Tylenol is OK To take the morning of surgery: Please take your cymbalta, ritalin, lyrica and propranolol the day of surgery Please call the clinic if you should experience a fast heart rate, fever, shortness of breath, excessive abdominal pain or vomiting after surgery. For any questions please call the Bariatric Surgery Program at . documented in this encounter Ordered Prescriptions Prescription Sig Dispensed Refills Start Date End Date oxyCODONE (ROXICODONE) 5 Take 5-10 mL by 150 mL 0 201409/27/2017 mg/5 mL solution mouth every 4 hours as needed for Pain starting after surgery on 09/05/14 Daily Max: 60 mg ondansetron (ZOFRAN-ODT) 4 Take 1 Tab by mouth 12 Tab 0 08/19/2015 08/31/2015 mg disintegrating tablet every 8 hours as needed for Nausea starting after surgery on 09/05/14 omeprazole (PRILOSEC) 40 Take 1 Cap by mouth 30 Cap 12 08/31/2015 mg capsule daily starting after surgery on 09/05/14 documented in this encounter Progress Notes Allen Thompson PA - 09/14/2015 1403 EST Subjective: Patient ID: Tia Hitchcock is an 40 y.o. female. Chief Complaint Patient presents with ??? Obesity H HPI preop for lap sleeve gastrectomy. Patient Active Problem List Diagnosis ??? Lumbar radiculopathy ??? Os trigonum syndrome ??? Tarsal tunnel syndrome of right side ??? Idiopathic peripheral neuropathy ??? Cervicalgia ??? Morbid obesity with BMI of 45.0-49.9, adult Past Medical History Diagnosis Date ??? Bipolar [...] syndrome ??? Generalized headaches ??? Mental disorder Past Surgical History Procedure Laterality Date ??? Spinal fusion L5-S1 Dr. Child 2006 ??? Laminectomy L5-S1 Dr. Bowers 1999 ??? Cholecystectomy ??? Tubal ligation ??? Back surgery Family History Problem Relation Age of Onset ??? Depression Other ??? Heart Disease Other ??? Psoriasis Other ??? Thyroid Disease Other ??? High Blood Pressure Other Social History Substance Use Topics ??? Smoking status: Former Smoker Quit date: 01/13/2009 ??? Smokeless tobacco: Not on file ??? Alcohol Use: 0.0 oz/week 0 Not specified per week Comment: very rarely Current Outpatient Prescriptions on File Prior to Visit Medication Sig Dispense Refill ??? acetaminophen (TYLENOL) 650 mg/20.3 mL solution Take 20.3 mL by mouth every 4 hours ??? duloxetine (CYMBALTA) 30 mg capsule Take 90 mg by mouth daily Take with 60mg cap to =90mg dose ??? LORazepam (ATIVAN) 0.5 mg tablet Take 0.5 mg by mouth at bedtime ??? methylphenidate (RITALIN SR; METADATE ER; METHYLIN ER) 20 mg SR tablet Take by mouth 2 times daily. Takes 20 mg every morning, 20 mg every afternoon, 10 mg every evening. ??? oxyCODONE (ROXICODONE) 5 mg immediate release tablet Take 2 Tabs by mouth every 4 hours Hold fornow while taking liquid form Daily Max: 60 mg ??? oxyCODONE (ROXICODONE) 5 mg/5 mL solution Take 5-10 mL by mouth every 4 hours as needed for PainDaily Max: 60 mg 700 mL 0 ??? pediatric multivitamin (JUAN CHEW VIT) chewable tablet Take 1 Tab by mouth daily Hold for 2 weeks ??? pregabalin (LYRICA) 50 mg capsule Take 2 Caps by mouth 3 times daily. 180 Cap 3 ??? PROPRANOLOL HCL (PROPRANOLOL ORAL) Take 120 mg by mouth daily ??? rizatriptan (MAXALT) 10 mg tablet Take 10 mg by mouth once as needed. May repeat in 2 hours if needed No current facility-administered medications on file prior to visit. Allergies Allergen Reactions ??? Adhesive Other (See Comments) Skin irritation, paper tape ok ??? Bee Sting [Hymenoptera Allergenic Extract] Swelling Fever and vomiting ??? Codeine Hives and Nausea And Vomiting ??? Other - See Comments Nausea And Vomiting Root beer ROS Constitutional: No fevers, chills. HEENT: No upper respiratory infection symptoms Cardiovascular: No chest pain, no shortness of breath, able to walk up a flight of stairs with no dyspnea or pain. Respiratory: No wheezing Renal: No dysuria or difficulty starting stream of urine GI: No nausea or vomiting, no diarrhea or constipation Endocrine: No polyuria or polydipsia Hematology: No excessive bruising or bleeding, no history of DVT Eyes: No acute changes Neurology: No slurred speech, no headache, no unilateral weakness Musculoskeletal: + muscle or joint pain in back, neck shoulders and feet Allergies/immunologic: + seasonal allergies Objective: BP 138/92 mmHg Pulse 110 Ht 172.7 cm (67.99) Wt 126.327 kg (278 lb 8 oz) BMI 42.36 kg/m2 Physical Exam General: No apparent distress, appears stated age HEENT: Moist mucous membranes Neck: No goiter Lungs: Clear to auscultation bilaterally Heart: Regular rate and rhythm Abdomen: Soft, non-distended, non-tender, +bowel sounds Musculoskeletal: Normal range of motion Neurological: Cranial nerves II-XII intact, strength intact in upper and lower extremities, patellarreflex 2+ bilaterally UGI and EGD normal Assessment: preop for lap sleeve gastrectomy. OK for surgery pending EKG Plan: (Z01.818) Preop examination (primary encounter diagnosis) Plan: EKG 12-LEAD, CANCELED: FULL CODE, CANCELED: PLACE SEQUENTIAL COMPRESSION DEVICE, CANCELED: INSERT PERIPHERAL IV, DISCONTINUED: lactated ringers (LR) infusion, CANCELED: STATUS: INPATIENT DOSA/DOPA DAY OF SURGERY/PROCEDURE ADMISSION, CANCELED: TREATMENT/INTERVENTION - MISCELLANEOUS, CANCELED: TYPE AND SCREEN, CANCELED: TEST, URINE, DISCONTINUED: ceFAZolin (ANCEF) syringe 2 g, CANCELED: NURSING COMMUNICATION, CANCELED: NURSING COMMUNICATION, DISCONTINUED: heparin injection 5,000 Units (E66.01, Z68.41) Morbid obesity with BMI of 40.0-44.9, adult Plan: EKG 12-LEAD, CANCELED: FULL CODE, CANCELED: PLACE SEQUENTIAL COMPRESSION DEVICE, CANCELED: INSERT PERIPHERAL IV, DISCONTINUED: lactated ringers (LR) infusion, CANCELED: STATUS: INPATIENT DOSA/DOPA DAY OF SURGERY/PROCEDURE ADMISSION, CANCELED: TREATMENT/INTERVENTION - MISCELLANEOUS, CANCELED: TYPE AND SCREEN, CANCELED: TEST, URINE, DISCONTINUED: ceFAZolin (ANCEF) syringe 2 g, CANCELED: NURSING COMMUNICATION, CANCELED: NURSING COMMUNICATION, DISCONTINUED: heparin injection 5,000 Units (F32.9) Depression Plan: EKG 12-LEAD, CANCELED: FULL CODE, CANCELED: PLACE SEQUENTIAL COMPRESSION DEVICE, CANCELED: INSERT PERIPHERAL IV, DISCONTINUED: lactated ringers (LR) infusion, CANCELED: STATUS: INPATIENT DOSA/DOPA DAY OF SURGERY/PROCEDURE ADMISSION, CANCELED: TREATMENT/INTERVENTION - MISCELLANEOUS, CANCELED: TYPE AND SCREEN, CANCELED: TEST, URINE, DISCONTINUED: ceFAZolin (ANCEF) syringe 2 g, CANCELED: NURSING COMMUNICATION, CANCELED: NURSING COMMUNICATION, DISCONTINUED: heparin injection 5,000 Units (K21.9) GERD without esophagitis Plan: EKG 12-LEAD, CANCELED: FULL CODE, CANCELED: PLACE SEQUENTIAL COMPRESSION DEVICE, CANCELED: INSERT PERIPHERAL IV, DISCONTINUED: lactated ringers (LR) infusion, CANCELED: STATUS: INPATIENT DOSA/DOPA DAY OF SURGERY/PROCEDURE ADMISSION, CANCELED: TREATMENT/INTERVENTION - MISCELLANEOUS, CANCELED: TYPE AND SCREEN, CANCELED: TEST, URINE, DISCONTINUED: ceFAZolin (ANCEF) syringe 2 g, CANCELED: NURSING COMMUNICATION, CANCELED: NURSING COMMUNICATION, DISCONTINUED: heparin injection 5,000 Units consent signed today with Dr Ugarte. MARGARITA Gomez Med Orders Placed This Visit and Additions to the Medication List Medications ??? DISCONTD: omeprazole (PRILOSEC) 40 mg capsule Sig: Take 1 Cap by mouth daily starting after surgery on 09/05/14 Dispense: 30 Cap Refill: 12 ??? DISCONTD: ondansetron (ZOFRAN-ODT) 4 mg disintegrating tablet Sig: Take 1 Tab by mouth every 8 hours as needed for Nausea starting after surgery on 09/05/14 Dispense: 12 Tab Refill: 0 ??? oxyCODONE (ROXICODONE) 5 mg/5 mL solution Sig: Take 5-10 mL by mouth every 4 hours as needed for Pain starting after surgery on 09/05/14 Daily Max: 60 mg Dispense: 150 mL Refill: [address] - 08/19/2015 9010 EST Medical Nutrition Evaluation-PRE OP NOTE Bariatric Clinic Nutrition Pre-op Visit Visit Number: 7 Desired surgery: Gastric Sleeve Subjective: Is here with her mother and DTR. States they are under a lot of stress at home. Food logs: reviewed Meal pattern: Regular meals Average caloric intake:~1500 Meal composition: low protein Snacking:none Exercise: Walking on Treadmill or stationary bike at home daily X 30 min Objective: Weight: 278.8 lbs Weight loss from last visit: -7.6 lbs Total weight loss: Weight loss goal: Total Loss in lbs (Weight from Initial Consult - Today's Weight): (!) 47.1 lbs Approximately 16 lbs Surgery Date: Significant Medications and Supplements: Assessment: Patient has made progress towards lifestyle changes Comments: Reviewed pre-op liquid diet and post-op diet progression. Offered web link to diet progression. Plan: Diet Goals: Calorie goal [phone] and Pre-op liquid diet start date 08/26/15 Exercise Goals: Maintain current exercise Weight Loss Goal: Approximately 16 lbs Weight Loss Remaining to Goal: met goal Reviewed: Food/Activity Record and Post Operative Diet Next Visit: Post-up follow up visit documented in this encounter Plan of Treatment Upcoming Encounters Date Type Specialty Care Team Description 06/25/2022 Telemedicine Neurology Kj Gloria MD PhD 1 [facility] 2 [place], [place] [address] (Wo rk) 09/06/2022 Procedure visit Pain Medicine Catalino Garrett M D [address] [place] [address] (Wo rk) 09/21/2022 Office Visit Bariatrics Allen Thompson PA-C [address] [facility] [place], [facility], [address] [place] [address] (Wo rk) documented as of this encounter Procedures Procedure Name Priority Date/Time Associated Diagnosis Comme nts ECG REPORT - 08/24/2015 15:13 SCANNED EST EKG 12-LEAD Routine 08/19/2015 11:27 Preop examinati on Results for this EST Morbid obesity with procedur e are in BMI of 40.0-44.9, the result s adult ([facility]) section. Depression GERD without esophagitis documented in this encounter Results EKG 12-LEAD (08/19/2015 11:27 EST) Specimen Narrative [facility] EKG - 08/23/2015 12:1 2 EST ? [facility] ? Test Date: ?2015-08-19 Pat Name: ? TIA HITCHCOCK ? Department: ?? WillBariatri ? Room: ? Gender: ? 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 [id number] : ?1975 ? Requested By: ASTRID Trinh Order Number: [id number] ? Reading MD: ?? LAZARO WEBBER MD ? Measurements Intervals ?Finley ? Rate: ? 82 ? P: ?57 HI: ? 138 ?QRS: ?13 QRSD: ? 81 ? T: ?36 QT: ? 366 ? QTc: ?429 ? Interpretive Statements SINUS RHYTHM Automated Interpretation. ??Physician In terpretation to follow. No previous ECG available for comparison I reviewed the tracing and have either a greed or edited the findings in this report. Electronically Signed On 5 12:12:29 EST by LAZARO WEBBER MD. 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 Physician Inte rpretation to follow. No previous ECG available for comparison I reviewed the tracing and have either a greed or edited the findings in this report. Electronically Signed On 12:12:29 EST by LAZARO WEBBER MD. Performing Organization Address City/State/ZIP Code Phon e Number [facility] EKG documented in this encounter Visit Diagnoses Diagnosis Preop examination - Primary Preoperative examination, unspecified Morbid obesity with BMI of 40.0-44.9, ad ult (HCC) Morbid obesity Depression Depressive disorder, not elsewhere class ified GERD without esophagitis Esophageal reflux documented in this encounter Orders Procedures Count Last Ordered Date First Ordered Date ECG REPORT - SCANNED 1 08/24/2015 documented in this encounter Care Teams Screen Machine Operator Relationship Specialty Start Date End Date Juma Herrera MD PCP - General 09/25/12 12/07/18 [address] [place] [address] documented as of this encounter
--- OUTSIDE RECORDS SUMMARY | 2022-06-15 07:54 | XMS_ITS | Encounter Summary ---
:1975 Author Organization [facility] Address [address] [place] [address] Care Team Providers Name Role Phone Juma Herrera MD Primary Care Provider Unavailable Reason for Referral Radiology Services (Routine/Next Available) - Closed Specialty Diagnoses / Procedures Referred By Contact Refer red To Contact Diagnoses Neck pain Kj Child MD Procedures CERVICAL SPINE 1 VIEW [facility] [place] [address] Referral ID Status Reason Start Date Expiration Date Visits Requ ested Visits Authorized [id number] Closed 11/27/2012 1 1 Reason for Visit Reason Onset Date Comments Neck Pain 11/26/2012 Encounter Details Date Type Department Care Team Description 11/26/2012 Orders Only [facility] Kj Child pa in (Primary Dx) Spine Program - Moises Kovacs MD [address] [place], [place] [address] [address] [address] Social History Tobacco Use Types [...] Telemedicine Neurology Kj Gloria MD PhD [address] [facility], [address] [place], [place] [address] (Wo rk) 09/06/2022 Procedure visit Pain Medicine Catalino Garrett M D [address] [facility] [address] [place] [address] (Wo rk) 09/21/2022 Office Visit Bariatrics Allen Thompson PA-C [address] [facility] venue [facility], [facility], [address] [place], [place] [address] (Wo rk) documented as of this encounter Procedures Procedure Name Priority Date/Time Associated Diagnosis Comme nts CERVICAL SPINE 1 Routine 12/09/2012 13:43 Neck pain Results for this VIEW EDT procedure are i n the results section. documented in this encounter Results CERVICAL SPINE 1 VIEW (12/09/2012 13:43 EDT) Anatomical Region Laterality Modality Other Specimen Narrative [facility] - 12/01 12:23 EDT CERVICAL SPINE ONE VIEW December 09, 2012 Indication: Neck pain. Status post C6-C7 ACDF. Comparison: October 21, 2012 Technique: Lateral view the cervical spine was obta ined. Findings: There has been prior anterior discectomy and spinal fusion at C6-C7. Metallic plate and screws appear intact. No periprosthetic lucency is identified. Incompletely incorporated interbody bone graft is present. This do es not appear significantly changed from the prior study. Craniocervical and atlantoaxial alignmen t is anatomic. Minimal retrolisthesis of C6 on C7 and anterolis thesis of C7 on T1 appear unchanged. Vertebral body heights are pr eserved. There is mild disc space narrowing at C5-C6 and C7-T1. Procedure Note 12/10/2012 CERVICAL SPINE ONE VIEW December 09, 2012 Indication: Neck pain. Status post C6-C7 ACDF. Comparison: October 21, 2012 Technique: Lateral view the cervical spine was obta ined. Findings: There has been prior anterior discectomy and spinal fusion at C6-C7. Metallic plate and screws appear intact. No periprosthetic lucency is identified. Incompletely incorporated interbody bone graft is present. This do es not appear significantly changed from the prior study. Craniocervical and atlantoaxial alignmen t is anatomic. Minimal retrolisthesis of C6 on C7 and anterolis thesis of C7 on T1 appear unchanged. Vertebral body heights are pr eserved. There is mild disc space narrowing at C5-C6 and C7-T1. Performing Organization Address City/State/ZIP Code Phon e Number [facility] documented in this encounter Visit Diagnoses Diagnosis Neck pain - Primary Cervicalgia documented in this encounter Care Teams Video Rental Clerk Relationship Specialty Start Date End Date Juma Herrera MD PCP - General 09/25/12 12/07/18 [address] [place] [address] documented as of this encounter
--- OUTSIDE RECORDS SUMMARY | 2022-06-15 07:54 | XMS_ITS | Encounter Summary ---
:1975 Author Organization [facility] Address [address] [place] [address] Care Team Providers Name Role Phone Alejandra Trevino MD Primary Care Provider Unavailable Reason for Referral (Routine) - Closed Specialty Diagnoses / Procedures Referred By Contact Refer red To Contact Benji Thompson PA-C [address] [phone] Referral ID Status Reason Start Date Expiration Date Visits V isits Requested Authorized [id number] Closed Specialty 09/07/2015 1 1 Services Required Comments Follow up with Master Potts MD i n 1 week for staple and drain removal. Please call [phone]. (Routine) - Closed Specialty Diagnoses / Procedures Referred By Contact Refer red To Contact eBnji Thompson PA-C [address] [place] [phone] Referral ID Status Reason Start Date Expiration Date Visits V isits Requested Authorized [id number] Closed Specialty 09/07/2015 1 1 Services Required Comments Fever greater than 100.4 or chills Inability to swallow or increasing diffi culty swallowing Increased or new pain Nausea or vomiting Pain unrelieved by medication Shortness of breath or rapid breathing Signs of infection such as pain, redness , swelling or drainage at procedure or wound site Swelling in your legs (Routine) - Closed Specialty Diagnoses / Procedures Referred By Contact Refer red To Contact Benji Thompson PA-C [address] [facility], [facility], [address] [place] [phone] Referral ID Status Reason Start Date Expiration Date Visits V isits Requested Authorized [id number] Closed Specialty 09/07/2015 1 1 Services Required Comments We are currently collecting quality data on patients having surgery. You may receive a phone call, email, and/or letter about your surgery asking you a series of follow up questions to evaluate specifics aspec ts of your care. Thank you for your participation. Encounter Details Date Type Department Care Team Description 09/05/2015 - Hospital Encounter [facility], Pre op examination (Primary Dx); 09/07/2015 General Surgery Master Mohan, Morbid o besity with BMI of 40.0- 44.9, adult ([facility]); Unit Depression; [address] GERD without esophagitis [place], [place] [id number] [place] [address] [phone] Social History Tobacco Use Types Packs/Day [...] Sign Reading Time Taken Comments Blood Pressure 110/57 09/07/2015 09 EST Pulse - - Temperature 37.4 ??C (99.3 ??F) 09/07/2015 09 EST Respiratory Rate 14 09/07/2015 0919 EST Oxygen Saturation 93% 09/07/2015 0919 EST Inhaled Oxygen Concentration - - Weight 123.6 kg (272 lb 6.4 oz) 09/05/2015 1200 EST Height 172.7 cm (5' 8) 09/05/2015 1200 EST Body Mass Index 41.42 09/05/2015 1200 EST documented in this encounter Functional Status [...] older) documented as of this encounter Discharge Summaries Allen Thompson PA - 09/05/2015 1239 EST Discharge Summary Chief Complaint/Reason for Admission: Morbid Obesity Principal/Final Diagnosis: Morbid Obesity Principal Procedure: Laparoscopic Sleeve Gastrectomy Date: 09/05/2015 Secondary Procedures: none Prognosis: good Condition at Discharge: Good Relevant Studies at Discharge: UGI - no leak Assessment at Discharge: Vital signs: Patient Vitals for the past 12 hrs: BP Resp Temp SpO2 O2 Device 09/07/15 0919 110/57 mmHg 14 37.4 ??C (99.3 ??F) 93 % None 09/07/15 0513 117/58 mmHg 14 36.5 ??C (97.7 ??F) 94 % None 09/07/15 0114 116/56 mmHg 16 36.6 ??C (97.9 ??F) 90 % None Hospital Course: This patient was seen and evaluated in our bariatric clinic. She was admitted and was taken to the operating room where a laparoscopic sleeve gastrectomy was performed. A 19 fr chaz drain was placed along the staple line. She was recovered and brought to the floor. On POD#1 an upper GI was performed which showed passage of contrast through the surgical gastric sleeve into the duodenum. Her gastrectomy diet was advanced to 30cc of clear liquids which she tolerated. Her mi catheter was removed and her urinary function returned to baseline. On POD#2 her patient controlled analgesia was discontinued and she was started on liquid oral pain medications. Her pain was well managed. Her intravenous fluids were discontinued. She was educated on maintenance of her drain and was able to validate her knowledge. She did well and is discharged home on 09/07/15, with drain in place to follow up in our clinic. There is no immunization history on file for this patient. Last Lab Results at Discharge: BUN: Lab Results Component Value Date BUN 13 09/06/2015 Creatinine: Lab Results Component Value Date CREATININE 0.67 09/06/2015 CBC: Lab Results Component Value Date WBC 16.73* 09/06/2015 RBC 4.18 09/06/2015 HGB 12.4 09/06/2015 HCT 37.6 09/06/2015 MCV 90 09/06/2015 MCH 29.7 09/06/2015 MCHC 33.1 09/06/2015 PLT 278 09/06/2015 DIFFTYPE Automated 07/23/2012 SEDRATE 14 07/23/2012 Electrolytes: Lab Results Component Value Date NA 140 09/06/2015 K 4.2 09/06/2015 CL 104 09/06/2015 CO2 28 09/06/2015 Discharge Summary Completed: 116 documented in this encounter Medications at Time [...] if needed documented as of this encounter Ordered Prescriptions Prescription Sig Dispensed Refills Start Date End Date pediatric multivitamin Take 1 Tab by mouth 0 02/201605/17/2022 (JUAN CHEW VIT) chewable daily Hold for 2 tablet weeks oxyCODONE (ROXICODONE) 5 Take 5-10 mL by 700 mL 0 201509/28/2016 mg/5 mL solution mouth every 4 hours as needed for Pain Daily Max: 60 mg oxyCODONE (ROXICODONE) 5 Take 2 Tabs by 0 016 05/17/2022 mg immediate release mouth every 4 hours tablet Hold for now while taking liquid form Daily Max: 60 mg acetaminophen (TYLENOL) Take 20.3 mL by 0 016 09/27/2017 650 mg/20.3 mL solution mouth every 4 hours documented in this encounter Discharge Disposition Disposition Code Departure Means Destination Home or Self Care documented in this encounter Progress Notes Mary Feldman - 09/07/2015 1431 EST CM DC Note Pt discharged home to self care Ivelisse Feldman RN CM 4010 Raymundo Almanza MD - 09/07/2015 0728 EST Surgery Daily Progress Note Patient: Tia Hitchcock Admit Date: 09/05/2015 Date of Service: 09/07/2015 POD: 1 (09/05/2015) Procedure: Laparoscopic Sleeve Gastrectomy CC: Morbid Obesity 24 Hour Events: ?? IV Benadryl for itching ?? Drain: 35cc SS output Subjective: Pain well controlled overnight. +Appetite. Continues to feel itchy on face and legs. Denies nausea, distention, fevers, chills, CP/shoulder pain, SOB. All positive ROS noted in subjective Objective: MAR reviewed Exam: General Appearance: alert, cooperative, no distress Lung: clear to auscultation bilaterally Heart: regular rate and rhythm, S1, S2 normal, no murmur, click, rub or gallop Abdomen: Rotund, soft and nondistended, appropriately tender Extremities: WWP Skin: Skin color, temperature, turgor normal. No rashes or lesions Flushing of face and neck. Incision(s)/Wound(s): CDI lap sites with dry dressings. Drains: SS drainage, non bilious Intake/Output Summary (Last 24 hours) at 09/07/15727 Last data filed at 09/07/15 0535 Gross per 24 hour Intake 3517.68 ml Output 1660 ml Net 1857.68 ml I&O By Type - 3 Shifts Including Current In: 2237.7 [P.O.:380.3; I.V.:1857.4] Out: 1345 [Urine:1325; Drains:20] Central Line Present: No Telemetry: No Assessment: Active Hospital Problems Diagnosis ??? *Morbid obesity with BMI of 45.0-49.9, adult Tia Hitchcock is a 40 y.o. female with history of morbid obesity now POD#2 s/p laparoscopic sleeve gastrectomy. Drain nonbilious. UOP adequate (0.5cc/kg/h) Plan: ?? Post gastrectomy diet: advance per pathway. CLD today. ?? D/c DIRECTORY ASSISTANCE OPERATOR. PO pain meds today. ?? Ambulate TID ?? Aggressive IS ?? Monitor and record drain output -Drain teaching for patient, will go home with ?? Likely discharge today DVT Prophylaxis: Ambulate, SCD's, SQ Heparin TID Raymundo Rahman MD 09/07/2015 7:28 Pager #[phone] Mary Valdes - 09/06/2015 8092 EST Initial Case Management/Social Work Assessment and Discharge Plan/Readmission Risk Assessment Reason for Admission: Lap sleeve gastrectomy Patient Contact Information: Clarissa Moon, LIVING ARRANGEMENTS AND ACCESSIBILITY ISSUES: Lives in home in [facility] What in home social supports are available to the patient? family/friends ADVANCED DIRECTIVES, POA &/or COLST IN PLACE: Yes LW; DPOA CULTURAL, SCIENTOLOGIST and/or LANGUAGE factors affecting health care/discharge planning: N/A Insurance in Place: Yes Type of Insurance: Medicare, Medicaid MEDICARE TYPE: A MEDICAID TYPE: Community DISCHARGE RISK ASSESSMENT: Polypharmacy, > 7 medications;History of mental illness;Diagnosis of Diabetes Total # selected above: Score of 2 - 4: This patient is at MODERATE RISK for re-hospitalization Tentative plan to address the risk of re-hospitalization for those at HIGH MODERATE RISK: Bring riskfactors to attention of team to be addressed FUNCTIONAL & PSYCHOSOCIAL INFORMATION: Independent with ADLS; pt concerned about chronic oxycodone use and prescribed for less than usual; provider aware and will provide new rx; informed pt; pt understands will dc home with drain; anticipate self care after nursing education MEDICAL AND COMMUNITY SERVICES: Primary Care Provider: Alejandra Trevino MD Specialists: Shanel MEHTA Skilled home care services: No DME Provider: No Pharmacy: [facility] - has already filled dc medications except as per above Other: Family will assist with dc transportation POST HOSPITAL TRANSITION PLAN: DC home to self care when medically ready Ivelisse Feldman RN CM 4010 Cara Stanley TRUCK LEASING MANAGER - 09/06/2015 0742 EST Surgery Daily Progress Note Patient: Tia Hitchcock Admit Date: 09/05/2015 Date of Service: 09/06/2015 POD: 1 (09/05/2015) Procedure: Laparoscopic Sleeve Gastrectomy CC: Morbid Obesity 24 Hour Events: ?? OR --> B6 ?? IV Benadryl for itching ?? Drain: 25cc SS output Subjective: Doing well this morning with adequate pain management. Reports wanting her study done early because she is very thirsty. Continues to feel itchy on face and legs that she takes benadryl for at home. Denies nausea, distention, fevers, chills, CP/shoulder pain, SOB. All positive ROS noted in subjective Objective: MAR reviewed Exam: General Appearance: alert, cooperative, no distress Lung: clear to auscultation bilaterally Heart: regular rate and rhythm, S1, S2 normal, no murmur, click, rub or gallop Abdomen: Rotund, soft and nondistended, appropriately tender Extremities: WWP Skin: Skin color, temperature, turgor normal. No rashes or lesions Flushing of face and neck. Incision(s)/Wound(s): CDI lap sites with dry dressings. Drains: SS drainage, non bilious Intake/Output Summary (Last 24 hours) at 09/06/15 0742 Last data filed at 09/06/15 0642 Gross per 24 hour Intake 3614.32 ml Output 725 ml Net 2889.32 ml I&O By Type - 3 Shifts Including Current In: 5.3 [I.V.:1985.3; IV Piggyback:100] Out: 430 [Urine:425; Drains:5] Central Line Present: No Telemetry: No Imaging: UGI pending Assessment: Active Hospital Problems Diagnosis ??? *Morbid obesity with BMI of 45.0-49.9, adult Tia Hitchcock is a 40 y.o. female with history of morbid obesity now POD#1 s/p laparoscopic sleeve gastrectomy. Appropriate postoperative progression with borderline urine output, feeling dry this morning. Will monitor urine output in morning hours and may benefit from additional fluid if needed. Drain nonbilious. Plan: ?? Upper GI today ?? Discontinue mi; DTV ?? Post gastrectomy diet: advance per pathway ?? Ambulate TID ?? Aggressive IS ?? Monitor and record drain output -Drain teaching for patient, will go home with. DVT Prophylaxis: Ambulate, SCD's, SQ Heparin TID Cara Blanc NP 09/06/2015 7:42 Pager #[phone] Olivia Laughlin MD - 09/05/2015 0255 EST Surgery Post Op Check Admit Date: 09/05/2015 Hospital Day: LOS: 0 days Date of Service: 09/05/2015 Procedure: lap sleeve gastrectomy Complications: none Subjective/ROS: Pain controlled with DIRECTORY ASSISTANCE OPERATOR. Feels sore. Had some nausea but resolved, no vomiting. Denies fevers/chills, chest pain/sob. Voiding in mi. No flatus or BM. MAR reviewed Objective VS: BP 106/61 mmHg Temp(Src) 37.3 ??C (99.1 ??F) (Tympanic) Resp 14 Ht 172.7 cm (68) Wt 123.56 kg (272 lb 6.4 oz) BMI 41.43 kg/m2 SpO2 97% Exam: Gen - no acute distress Resp - CTAB Cards - RRR Abd - soft, appropriately tender john paul in epigastric area, non distended, serosanguinous output in MELANIE drain, incisions dressed with no strikethrough, +BS Assessment: Ms. Hitchcock is a 40 year old female who is POD0 s/p a lap sleeve gastrectomy. She is recovering well on the floor on pathway. Plan: Pain control with DIRECTORY ASSISTANCE OPERATOR NPO Upper GI tomorrow- advance diet as appropriate Mi out tomorrow Post-sleeve Pathway Olivia Murphy MD 09/05/2015 17:54 Surgery, PGY1 p1940 Mahogany Anton RN - 09/05/2015 1042 EST 1040: Pt appears to be resting quietly, in no distress, VSS. Yet pt reports pain 9/10, some ongoing nausea. Pt encouraged to use dilaudid DIRECTORY ASSISTANCE OPERATOR.Surgical sites CDI, RUQ MELANIE draining sm amt serosanguinous, mi draining CYU. Raysa Seth RN - 08/15/2015 0916 EST Tia Hitchcock has been instructed as follows regarding medication administration for the day of thescheduled procedure. Date of Surgery: 09/05/14 Instructions for Taking Medications Day of Surgery Medication Sig Last Dose Hold DOS Take DOS ACETAMINOPHEN (TYLENOL ORAL) Take 650 mg by mouth as needed. If needed duloxetine (CYMBALTA) 30 mg capsule Take 90 mg by mouth daily Take with 60mg cap to =90mg dose yes LORazepam (ATIVAN) 0.5 mg tablet Take 0.5 mg by mouth at bedtime If needed methylphenidate (RITALIN SR; METADATE ER; METHYLIN ER) 20 mg SR tablet Take by mouth 2 times daily. Takes 20 mg every morning, 20 mg every afternoon, 10 mg every evening. Yes per pt oxyCODONE (ROXICODONE) 5 mg immediate release tablet Take 10 mg by mouth every 4 hours. If needed pediatric multivitamin (JUAN CHEW VIT) chewable tablet Take 1 Tab by mouth daily 08/29/15 pregabalin (LYRICA) 50 mg capsule Take 2 Caps by mouth 3 times daily. yes prochlorperazine (COMPAZINE) 10 mg tablet Take 1 Tab by mouth every 6 hours as needed for Nausea. Ifneeded PROPRANOLOL HCL (PROPRANOLOL ORAL) Take 120 mg by mouth daily yes rizatriptan (MAXALT) 10 mg tablet Take 10 mg by mouth once as needed. May repeat in 2 hours if needed If needed documented in this encounter H&P Notes Allen Thompson PA - 09/05/2015 0723 EST Surgical H+P Admission Admit Date: 09/05/2015 Date of Service: 09/05/2015 Hospital day: LOS: 0 days Chief Complaint: Morbid obesity HPI: (Location, Quality, Severity, Duration, Timing, Context, Modifying Factors, Associated Signs and Symptoms) preop for lap sleeve gastrectomy PMH PSH Past Medical History Diagnosis Date ??? Bipolar [...] Cholecystectomy ??? Tubal ligation ??? Back surgery Social History Family history History Substance Use Topics ??? Smoking status: Former Smoker Quit date: 01/13/2009 ??? Smokeless tobacco: Not on file ??? Alcohol Use: Yes Comment: very rarely Family History Problem Relation Age of Onset ??? Depression Other ??? Heart Disease Other ??? Psoriasis Other ??? Thyroid Disease Other ??? High Blood Pressure Other Medications Prescriptions prior to admission Medication Sig Dispense Refill Last Dose ??? ACETAMINOPHEN (TYLENOL ORAL) Take 650 mg by mouth as needed. More than a month ??? duloxetine (CYMBALTA) 30 mg capsule Take 90 mg by mouth daily Take with 60mg cap to =90mg dose 09/04/2015 ??? LORazepam (ATIVAN) 0.5 mg tablet Take 0.5 mg by mouth at bedtime More than a month ??? methylphenidate (RITALIN SR; METADATE ER; METHYLIN ER) 20 mg SR tablet Take by mouth 2 times daily. Takes 20 mg every morning, 20 mg every afternoon, 10 mg every evening. 09/04/2015 ??? omeprazole (PRILOSEC) 20 mg capsule Take 2 Caps by mouth daily 60 Cap 3 More than a month ??? oxyCODONE (ROXICODONE) 5 mg immediate release tablet Take 10 mg by mouth every 4 hours. 09/04/2015 ??? oxyCODONE (ROXICODONE) 5 mg/5 mL solution Take 5-10 mL by mouth every 4 hours as needed for Painstarting after surgery on 09/05/14 Daily Max: 60 mg 150 mL 0 not yet ??? pediatric multivitamin (JUAN CHEW VIT) chewable tablet Take 1 Tab by mouth daily 08/20/2015 ??? pregabalin (LYRICA) 50 mg capsule Take 2 Caps by mouth 3 times daily. 180 Cap 3 09/04/2015 ??? prochlorperazine (COMPAZINE) 10 mg tablet Take 1 Tab by mouth every 6 hours as needed for [id number] Tab 0 not yet ??? PROPRANOLOL HCL (PROPRANOLOL ORAL) Take 120 mg by mouth daily 09/04/2015 ??? rizatriptan (MAXALT) 10 mg tablet Take 10 mg by mouth once as needed. May repeat in 2 hours if needed Past Week Allergies Allergies Allergen Reactions ??? Adhesive Other (See Comments) Skin irritation, paper tape ok ??? Bee Sting [Hymenoptera Allergenic Extract] Swelling Fever and vomiting ??? Codeine Hives and Nausea And Vomiting ??? Other - See Comments Nausea And Vomiting Root beer Review of Systems: Constitutional: No fevers, chills. HEENT: No upper [...] speech, no headache, no unilateral weakness Musculoskeletal: No muscle or joint pain Allergies/immunologic: No seasonal allergies Last Meal: Objective/Physical Exam: VS: Patient Vitals for the past 8 hrs: BP Resp Temp SpO2 O2 Device 09/05/15 0622 104/58 mmHg 16 36.6 ??C (97.9 ??F) 98 % None Pain: Patient Vitals for the past 8 hrs: Numeric Pain Level (Scale 1-10) 09/05/15 0622 6 ECG: Done at office. Exam: General: No apparent distress, appears stated age HEENT: Moist mucous membranes Neck: No goiter Lungs: Clear to auscultation bilaterally Heart: Regular rate and rhythm Abdomen: Soft, non-distended, non-tender, +bowel sounds Musculoskeletal: Normal range of motion Neurological: Cranial nerves II-XII intact, strength intact in upper and lower extremities, patellarreflex 2+ bilaterally Assessment There are no hospital problems to display for this patient. preop fo lp sleeve gastrectomy. OK for surgery. Problems/Plan: (update problem list daily as appropriate) To OR for above MARGARITA Gomez 09/05/2015 7:23 documented in this encounter OR Notes OR Surgeon - Master Potts MD - 09/19/2015 0802 EST OPERATIVE REPORT SERVICE DATE: 09/05/2015 PREOPERATIVE DIAGNOSIS: Morbid obesity. POSTOPERATIVE DIAGNOSIS: Morbid obesity. PROCEDURE: Laparoscopic sleeve gastrectomy using a 44-Hong Konger bougie. SURGEON: Master Potts MD ENVIRONMENTAL PROTECTION OFFICER: Laura Hull MD, FACS; no qualified resident to travel assistant in the case. ANESTHESIA: INDICATIONS: Morbidly obese 40-year-old who failed multiple dietary attempts in the past and electedto have laparoscopic sleeve gastrectomy. NARRATIVE: The patient was consented, wheeled into the operating room, placed in the supine position, and underwent ET tube intubation and general anesthesia. The patient was strapped to the table. A foot board was placed and secured. Both arms were protected and kept abducted at a right angle to the body at 90 degrees. After induction of anesthesia, one dose of antibiotic prophylaxis was given. The patient also received 5000 units of subcu heparin along with prophylactic antibiotics. The patient had an upper body Linn Hugger applied. Mi catheter was placed. An orogastric calibration tube was passed by anesthesia into the stomach and placed on suction. The patient's abdomen was prepped and draped in normal sterile surgical fashion. Everybody in the room introduced him or herself. Time-out was completed. The patient was identified by name, medical record number and date of . Plan for the procedure was confirmed, consent form was checked. Instruments and equipment were checked and everything we needed was available for the operation. Access into the peritoneal cavity was gained through a small transverse incision off the upper midline of the periumbilical region with a 12 mm Optiview. We insufflated the abdomen with 15 mm of pressure with CO2. We then placed the patient in slight reverse Trendelenburg with the left side up, positioned to facilitate further trocar placement. We placed a 5 mm subxiphoid for a laparoscopic liver retractor, an additional right upper quadrant 12 mm trocar, a midepigastric 12 mm trocar, a left upper quadrant 12 mm trocar and a left flank 5 mm and a right lower quadrant 15 mm trocar to facilitate introduction of the stapler and specimen retrieval. All these trocars were bladeless and they were inserted under direct laparoscopic visualization. The liver retractor was then placed through the 5 mm subxiphoid trocar. The left lateral segment of the liver was elevated out of the way to expose the GE junction and the gastric fundus. The retractor was then fastened to the table. Anesthesia was asked to remove the OG tube, as well as any esophageal probe after complete decompression and suctioning of thestomach. With the trocars in proper position, the fundus of the stomach was grasped and retracted caudally exposing the gastrophrenic ligament. No hiatal hernia was identified. Pyloric channel was identified and approximately 6 cm proximal to it the short gastric vessels of the greater curvature were taken down all the way up to the GE junction with a Harmonic scalpel. A 44-Hong Konger bougie was passed transorally under direct vision into the stomach until it reached the proximal pyloric channel. Prior to gastric division, both the right and left crura were exposed. Next our attention was drawn to gastric division. The thick antrum of the stomach was vertically transected using 2 applications of the 45 mm Endo-SABRINA reinforced reload with Tri-Staple technology loaded with a black cartridge adjacent to the bougie to create a gastric tube. Transection of the stomach was completed after several applications loaded with a purple reinforced reload with Tri-Staple technology Endo-SABRINA up to the angle of Hiss. Please note that prior to any firing of the yfn, the yfn were secured against the bougie on both sides. We had moved the bougie prior to firing any of the yfn on the inferior staple line.The staple line was meticulously inspected and was found to be intact with good hemostasis. The bougie was removed without difficulty. The left upper quadrant was irrigated with warm normal saline above the spleen and suctioned. No bleeding points were identified. The liver retractor was removed underdirect visualization. After placing the specimen in an Endocatch bag, the area was irrigated again. A 19-Hong Konger Chaz drain was placed in the subhepatic area near the staple line at the conclusion of the procedure to identify any postoperative bleeding or leak and this was sutured in to the skin with a 2-0 nylon suture. The specimen was then removed from the 15 mm trocar site. This was enlarged. The fascia had been enlarged and once the specimen was out we closed this with a #1 Vicryl using the rachael Lindsay closure device. The wound was then copiously irrigated with normal saline and hemostasis was achieved. The other trocar sites were closed with skin yfn. We applied Telfa and Tegaderm. Wesutured the drain in with a 3-0 nylon suture. The patient tolerated the procedure well. All needles,instruments and lap pads were accounted for. I was present for the entire case. The patient was extubated in the operating room and sent to PACU in good condition. Unless otherwise noted, there were no complications, no blood loss, no cultures obtained, no specimens removed, and no drains retained. Unless otherwise noted, there were no complications, no blood loss, no cultures obtained, no specimens removed, and no drains retained. Master Potts MD 07 36 AM / Master Potts MD jn Confirmation: [id number] Dictation ID: [id number] documented in this encounter Miscellaneous Notes Plan of Care - Belkis Braun RN - 09/07/2015 1146 EST Problem: Daily Care Plan Goals Goal: Care Plan Documentation Outcome: Met This Shift 09/06/15 1911 09/07/15 0919 Care Plan Focus Area of Focus -- Discharge Plan Goal This Shift Communication between pt and nursing staff -- Data: Pt A+Ox3, rates pain at 5/10. IV now Sl. Pt now tolerating clear liquids and liquid pain medication. MELANIE in place and patent. Pt voiding adequate amounts of clear urine. Pt states she is ready fordischarge home. Action: Pt cleared for discharge home. IV removed, drain teaching completed with return demo of skills. Pt and family deny need for further education or instructions at this time. Response: Pt discharged home with family via wc to car. Belkis Braun RN 09/07/2015 11:42 lan of Care - Hortencia Franz RN - 09/07/2015 0202 EST Problem: Daily Care Plan Goals Goal: Care Plan Documentation Outcome: Ongoing 09/06/15 191 Care Plan Focus Area of Focus Communication Goal This Shift Communication between pt and nursing staff Data: POD#2 s/p lap sleeve. No reports of flatus. Pt states pain is controlled with Dilaudid DIRECTORY ASSISTANCE OPERATOR. Pthas lots of anxiety related to care. Action: Encouraged ambulation overnight. Pt continues to use DIRECTORY ASSISTANCE OPERATOR button. Provided emotional support and answered questions. Response: Pt sleeping throughout night. Will monitor Hortencia Franz RN 09/07/2015 1:42 lan of Care - Valente Hernandez - 09/06/2015 1329 EST Problem: Daily Care Plan Goals Goal: Care Plan Documentation Data: Patient rating pain at a 7/10 upon assumption of care. NPO. IVF and Dilaudid DIRECTORY ASSISTANCE OPERATOR infusing. Mi removed. DTV at 1245. Action: Patient off the unit to upper GI. No leaks shown, diet advanced to 60cc/hour. Pain tolerablewith the dilaudid DIRECTORY ASSISTANCE OPERATOR. Encouraged patient to get OOB and ambulate. +voiding. Response: Currently in bed, rating pain at a 7/10. Visiting with friends at bedside. Will continue to monitor. Valente Hernandez RN 09/06/2015 13:25 nesthesia Post- Eval - Alejandra Sanderson CRNA - 09/06/2015 1131 EST Post Anesthesia Evaluation Date of Service: 09/06/2015 The patient has been evaluated and assessed. If present, post anesthetic events are documented below. The last set of recorded vital signs and pain rating were reviewed: Temp: 36.9 ??C (98.4 ??F), Heart Rate: 91 BPM, BP: 116/55 mmHg, Resp: 16, SpO2: 96 % Numeric Pain Level (Scale 1-10): 7 Adult Nonverbal Pain ScaleTotal: 0 Procedure detail: Anesthesia Type: General Level of Consciousness: Awake;Oriented Vital Signs: Stable Pulmonary Status: Incentive spirometry Post Op Pain: Taking PO/IV pain meds with good effect Ambulatory Status: Out of bed in chair Additional follow up needed: No Perioperative events: General Events: None Alejandra Sanderson CRNA 09/06/2015 11:31 lan of Care - Vanesa Fonseca RN - 09/06/2015 0506 EST Problem: Daily Care Plan Goals Goal: Care Plan Documentation Outcome: Ongoing 09/05/15 2305 Care Plan Focus Area of Focus Pain/ Comfort Goal This Shift pts pain will be managed overnight Data: Pt rating pain 6-9/10 in abdomen. Action: Monitored/encouraged dilaudid DIRECTORY ASSISTANCE OPERATOR usage. Assisted pt oob to ambulate in hallways. Medicated with scheduled toradol per OCT. Response: Pt now rating pain 6/10 minimal sleep overnight which patient reports is her norm. Will continue to monitor/medicate for pain as needed. Vanesa Fonseca RN 09/06/2015 5:36 lan of Care - Valente Hernandez - 09/05/2015 1856 EST Problem: Daily Care Plan Goals Goal: Care Plan Documentation Data: Assumed care at 1500, patient in bed rating pain at a 9.5/10. IVF and Dilaudid DIRECTORY ASSISTANCE OPERATOR infusing. Strict NPO. Mi catheter in place draining clear yellow urine. Requesting to get some candy or ice chips. Action: Cleared DIRECTORY ASSISTANCE OPERATOR Q2 hours. Instructed to patient the importance of not taking in anything by mouth. Assisted to reposition for comfort. Encouraged patient to get OOB and ambulate but patient refusedcurrently. Response: In bed, rating pain at a 9/10 visiting with friends at bedside. Will continue to assess patient and perform interventions as needed. Valente Hernandez RN 09/05/2015 18:52 lan of Murphy - Yola Jarvis - 09/05/2015 1524 EST Problem: Daily Care Plan Goals Goal: Care Plan Documentation Outcome: Ongoing 09/05/15 1321 Care Plan Focus Area of Focus Pain/ Comfort Goal This Shift pt will be comfortable Data: Pt arrived on unit at noon. Rates pain 9/10 DIRECTORY ASSISTANCE OPERATOR dilaudid used multiple times. Oriented to unit.C/o itching Action: Toradol, 0.4 IV dilaudid breakthrough, given for pain. Benadryl given for itch. Response: Pt resting in bed with back ribbon hand. Family at bedside. Reports pain better. Will monitor Yola Jarvis RN 09/05/2015 15:21 nesthesia Post-Eval - Marques Arellano MD - 09/05/2015 1138 EST Post Anesthesia Evaluation Note Date of Service: 09/05/2015 Tia Hitchcock, a 40 y.o. year old female has received General Anesthesia She has been evaluated, assessed and discharged from anesthesia care with stable cardiorespiratory function and alert mental status. The last set of recorded vital signs and pain rating were reviewed: Temp: 36.8 ??C (98.2 ??F) (09/05/15 1100), Heart Rate: 94 BPM (09/05/15 1115), BP: 107/74 mmHg (09/05/15 1115), Resp: 14 (09/05/15 1115), SpO2: 95 % (09/05/15 1115),Numeric Pain Level (Scale 1-10): 9 Adult Nonverbal Pain ScaleTotal: 0 Tia Hitchcock participated in this evaluation unless otherwise noted. Her pain, nausea and vomitinghave been managed and her body temperature and fluid balance have been restored. Additional monitoring and assessment needs have been addressed. If present, any postoperative events are documented below. If the regional block for postoperative analgesia was intended to last greater than 48 hours, Suzi Hitchcock will be followed by the Acute Pain Service. Marques Arellano MD 09/05/2015 11:38 rief Op Note - Allen Thompson PA - 09/05/2015 0923 EST Brief Post-Op Note Date of Surgery: 09/05/2015 Surgeon: MD Shanel Assistants: MD Della; ELISABETH Thompson Pre-Op Diagnosis: morbid obesity Post-Op Diagnosis: same Procedure(s): lap sleeve gastrectomy Findings: 44fr bougee used Anesthesia Type: General Estimated Blood Loss: Unless otherwise noted, there was no blood loss, specimens removed, cultures obtained, or drains retained. The estimated blood loss was less than 50 mL Fluids: Tia Hitchcock received 1100cc of fluid replacement. Urine Output: 25cc Specimens/Cultures: portion of stomach Drains/Packs: 19 chaz along staple line Complications: None Disposition and Condition: Tia Hitchcock was sent to PACU in Good condition. MARGARITA Gomez 09/05/2015 9:23 documented in this encounter Plan of Treatment Upcoming Encounters Date Type Specialty Care Team Description 06/25/2022 Telemedicine Neurology Kj Gloria MD PhD [address] [facility], [address] [place], [place] [address] (Wo rk) 09/06/2022 Procedure visit Pain Medicine Catalino Garrett M D [address] [facility] [address] [place] [address] (Wo rk) 09/21/2022 Office Visit Bariatrics Allen Thompson PA-C [address] [facility] venue [facility], [facility], [address] [place], [place] [address] (Wo rk) Scheduled Referrals Name Type Priority Associated Order Schedule Diagnoses PROVIDER FOLLOW-UP Outpatient Referral Routine Or dered: INSTRUCTIONS 09/07/2015 PROVIDER FOLLOW-UP Outpatient Referral Routine Or dered: INSTRUCTIONS 09/07/2015 PROVIDER FOLLOW-UP Outpatient Referral Routine Or dered: INSTRUCTIONS 09/07/2015 documented as of this encounter Procedures Procedure Name Priority Date/Time Associated Diagnosis Comme nts ECG REPORT - SCANNED 09/12/2015 10:16 EST FL UGI WO AIR WO KUB Routine 09/06/2015 10:24 Res ults for this EST procedure are i n the results section. COMPLETE BLOOD COUNT Routine 09/06/2015 5:41 Resu lts for this EST procedure are i n the results section. BUN Routine 09/06/2015 5:41 Results for this EST procedure are i n the results section. MAGNESIUM Routine 09/06/2015 5:41 Results for this EST procedure are i n the results section. CREATININE Routine 09/06/2015 5:41 Results for this EST procedure are i n the results section. ELECTROLYTES Routine 09/06/2015 5:41 Results for this EST procedure are i n the results section. SURGICAL PATHOLOGY Routine 09/05/2015 13:49 Resul ts for this EST procedure are i n the results section. TEST, URINE STAT 09/05/2015 5:54 Preop exam ination Results for this EST Morbid obesity with procedur e are in BMI of 40.0-44.9, the result s adult ([facility]) section. Depression GERD without esophagitis TYPE AND SCREEN STAT 09/05/2015 5:54 Preop examinatio n Results for this EST Morbid obesity with procedur e are in BMI of 40.0-44.9, the result s adult ([facility]) section. Depression GERD without esophagitis ECG REPORT - SCANNED 08/30/2015 8:38 EST documented in this encounter Results FL UGI WO AIR WO KUB (09/06/2015 10:24 EST) Anatomical Region Laterality Modality Other Specimen Narrative [facility] - 09/06/2015 12:16 EST FL UGI WO AIR WO KUB ??09/06/2015 10:24 AM Signs and Symptoms/Comments: ??Morbid Ob esity S/P Lap Gastric Sleeve Comparison: Esophagram from 01/18/15 Technique and Findings: PA radiograph of the region of the stoma ch was obtained. Following this, the patient drank water-soluble co ntrast while in multiple positions including PA, VILLALTA, THAI, and le ft lateral position. Following this, the patient drank thin b arium while in multiple positions including PA, VILLALTA, THAI, and le ft lateral position. A final radiograph was obtained in the PA positi on of the stomach and duodenum. Study shows normal postoperative appeara nce of the stomach status post gastric sleeve procedure. There is no evidence of contrast leakage from the stomach. Normal transit of contrast is seen into the duodenum. Surgical yfn are seen along the ante rior abdomen. Impression: Normal postoperative appearance status p ost gastric sleeve procedure, with no evidence of leak on t his examination. I have personally reviewed the images an d the above interpretation and agree with the findings. Procedure Note Ajith Hassan MD - 09/06/2015 FL UGI WO AIR WO KUB 09/06/2015 10:24 AM Signs and Symptoms/Comments: Morbid Obes ity S/P Lap Gastric Sleeve Comparison: Esophagram from 01/18/15 Technique and Findings: PA radiograph of the region of the stoma ch was obtained. Following this, the patient drank water-soluble co ntrast while in multiple positions including PA, VILLALTA, THAI, and le ft lateral position. Following this, the patient drank thin b arium while in multiple positions including PA, IVLLALTA, THAI, and le ft lateral position. A final radiograph was obtained in the PA positi on of the stomach and duodenum. Study shows normal postoperative appeara nce of the stomach status post gastric sleeve procedure. There is no evidence of contrast leakage from the stomach. Normal transit of contrast is seen into the duodenum. Surgical yfn are seen along the ante rior abdomen. Impression: Normal postoperative appearance status p ost gastric sleeve procedure, with no evidence of leak on t his examination. I have personally reviewed the images an d the above interpretation and agree with the findings. Performing Organization Address City/[facility]/ZIP Code Phon e Number [facility] MAGNESIUM (09/06/2015 5:41 EST) Pathologist Sig nature Magnesium 2.0 1.7 - 2.8 mg/dl [facility] Specimen Blood specimen (specimen) - Blood Performing Organization Address [facility] Phon e Number [facility] [address] [place] [address] SERVICES (ABNORMAL) HEMAGRAM (09/06/2015 5:41 EST) Pathologist Sig nature WBC 16.73 (H) 4.0 - 12.4 K/cmm [facility] RBC 4.18 3.86 - 5.04 M/cmm [facility] Hemoglobin 12.4 11.6 - 15.2 gm/dl [facility] HCT 37.6 34.9 - 44.4 % [facility] MCV 90 81 - 98 fl [facility] MCH 29.7 26.7 - 33.3 pg [facility] MCHC 33.1 32.1 - 35.9 gm/dl [facility] RDW-CV 13.7 11.7 - 14.6 % [facility] RDW-SD 43.3 37.6 - 50.3 fl [facility] PLT 278 141 - 320 K/cmm [facility] MPV 8.5 7.5 - 11.2 fl [facility] Specimen Blood specimen (specimen) - Blood Performing Organization Address [facility] Phon e Number [facility] [address] [place] [address] SERVICES ELECTROLYTES (09/06/2015 5:41 EST) Pathologist Sig nature Sodium 140 136 - 145 mEq/L [facility] Potassium 4.2 3.5 - 5.0 mEq/L [facility] Chloride 104 96 - 110 mEq/L [facility] CO2 28 24 - 32 mEq/L [facility] RY SERVICES Specimen Blood specimen (specimen) - Blood Performing Organization Address City/State/ZIP Code Phon e Number [facility] [address] [place] [address] SERVICES CREATININE (09/06/2015 5:41 EST) Creatinine 0.67 0.52 - 1.04 [facility] mg/dl LABORATORY SERVICES GFR, Calculated 109 >60 [facility] Comment: ml/min/1.73m2 LABORATORY eGFR calculated using CKD-EPI equation for SERVICES non Americans. Multiply eGFR by 1.16 for Americans. Specimen Blood specimen (specimen) - Blood Performing Organization Address City/State/ZIP Code Phon e Number [facility] [address] [place] [address] SERVICES BUN (09/06/2015 5:41 EST) Pathologist Sig nature BUN 13 10 - 26 mg/dl [facility] RY SERVICES Specimen Blood specimen (specimen) - Blood Performing Organization Address City/[facility]/ZIP Code Phon e Number [facility] [address] [place] [address] SERVICES SURGICAL PATHOLOGY (09/05/2015 13:49 EST) Pathology Report: SURGICAL PATHOLOGY REPORT [facility] Reports generated via electronic interface contain efrain ginal data; LABORATORY however they are lacking the format of the original re port. SERVICES Caution should be taken when reading/interpreting unfo rmatted reports. Name: ? TIA HITCHCOCK ? Accession #: ? [id number] ? : ? 1975 (Age: 40) ??F ? Collect Date: ? 09/05/2015 ? Location: ? B006 ? Receive Date: ? 6 ? Provider: MASTER POTTS MD Copy to: ALEJANDRA TREVINO MD ? Final Pathologic Diagnosis: Stomach, sleeve gastrectomy: - ??Oxyntic gastric tissue with no significant abnorma lity. - ??No evidence of Helicobacter pylori on H&E. Document reviewed and electronically signed by: LYNN HERNANDEZ MD Report ??Date: 09/07/2015 12:20 By the signature above, the attending physician certif ies that he/she has personally conducted a gross and/or microscopic examin ation of the described specimens and rendered or confirmed the above diagnosi s. Specimen(s) Received: Portion of stomach Clinical History: Morbid obesity Gross Description: ? Received fresh labell ed with proper patient identification (initials C, S) and portion of stomach is a portion of stomach (21.5 cm in length, ranging in diameter from 2.0 cm to 5.8 cm), receive d closed. ??The mucosa is ko-pink and focally hemorrhagic. ??The stomach wall ranges in thickness from 0.8 cm to 1.2 cm. ??The serosa is ko-pink and smooth. Four represen tative sections of the stomach are submitted as [address] Daly 09/05/2015 3:01 PM End of Report Specimen Performing Organization Address City/[facility] Code Phon e Number [facility] [address] [place] [address] SERVICES TYPE AND SCREEN (09/05/2015 5:54 EST) ABO A [facility] Rh Factor Positive [facility] Antibody Screen Negative [facility] Specimen Expires: 09/08/2015 @ 23:59 [facility] Specimen Blood specimen (specimen) Performing Organization Address City/[facility]/ZIP [facility] Phon e Number [facility] [address] [facility] BLOOD BANK TEST, URINE (09/05/2015 5:54 EST) Result- Neg Neg [facility] Test, Ur Comment: LABORATORY NOTE: SERVICES False negative results may occur in women who are beyond 5-8 weeks gestation. Diagnosis of should be based on a correlation of test results with typical clinical signs and symptoms. Specimen Urine (substance) - Urine Performing Organization Address City/State/ZIP Code Phon e Number [facility] [address] [place] [address] SERVICES documented in this encounter Visit Diagnoses Diagnosis Morbid obesity with BMI of 45.0-49.9, ad ult (HCC-CMS) ([facility]) - Primary Morbid obesity Preop examination Preoperative examination, unspecified Morbid obesity with BMI of 40.0-44.9, ad ult ([facility]) Morbid obesity Depression Depressive disorder, not elsewhere class ified GERD without esophagitis Esophageal reflux documented in this encounter Administered Medications Inactive Administered Medications - up to 3 most recent administrations Medication Order MAR Action Action Date Dose Rate Site acetaminophen (OFIRMEV) IV Given 09/05/2015 10:11 EST 1,000 mg solution 1,000 mg 1,000 mg, intravenous, NOW X1, 1 dose, On Sat09/05/15 at 0945, Is the patient NPO? If No, state reason why oral acetaminophen cannot be used in Comment field. Yes, Is this patient nothing by rectum? If No, state why rectal acetaminophen cannot be used in the Comment field. Yes, Are NSAIDs contraindicated in this patient? No, Is the patient in ED, PACU or ICU? Yes, Routine acetaminophen (TYLENOL) solution unit dose cup Given 0 09/07/2015 12:12 EST 650 mg 650 mg 650 mg, oral, EVERY 4 HOURS, First dose on Sat09/07/15 at 0000, Until Discontinued, Routine, On Unit Given 09/07/2015 8:08 EST 650 mg Given 09/07/2015 4:02 EST 650 mg ceFAZolin (ANCEF) 2 g in sodium chloride 0.9% 50 Given 09/05 10:38 EST 2 g mL IVPB 2 g, intravenous, Administer over 30 Minutes, Once (NO Time Specified), 1 dose, Starting on Sat09/05/15 at 0949, Until Sat09/05/15 at 1108, Routine, Recovery (only) ceFAZolin (ANCEF) 2 g in sodium chloride 0.9% 50 mL Given 09/06/2015 0:01 EST 2 g IVPB 2 g, intravenous, Administer over 30 Minutes, EVERY 8 HOURS, 2 doses, First dose on Sat09/05/15 at 1600, Last dose on Sat09/06/15 at 0000, Routine, On Unit Given 09/05/2015 15:44 EST 2 g ceFAZolin (ANCEF) syringe 2 g Given by Other 09/05/2015 8:00 EST 2 g 2 g, intravenous, Administer over 10 Minutes, PRE-OP ONCE, 1 dose, On Sat09/05/15 at 0645, Routine, Pre-Op DOS Rx Approved dextrose 5 % and 0.45 % NaCl with New Bag 09/07/2015 4:07 EST 125 mL/hr 125 mL/hr KCl 20 mEq/L infusion at 125 mL/hr, 125 mL/hr, intravenous, CONTINUOUS, Starting on Sat09/05/15 at 1015, Until Sat09/07/15 at 0726, Routine, On Unit New Bag 09/06/2015 20:08 EST 125 mL/hr 125 mL/hr Rate Documented 09/06/2015 19:11 EST 125 mL/hr 125 mL/hr diphenhydrAMINE (BENADRYL) injection 12. 5-25 mg Given 09/07/2015 5:49 EST 25 mg 12.5-25 mg, intravenous, EVERY 6 HOURS PRN, Starting on Sat09/05/15 at 1225, Until Sat09/07/15 at 1423, Itching, Routine, On Unit Given 09/06/2015 22:09 EST 25 mg Given 09/05/2015 21:36 EST 25 mg diphenhydrAMINE (BENADRYL) injection 6.2 5 mg Given 09/05/2015 10:50 EST 6.25 mg 6.25 mg, intravenous, PRN, 2 doses, Starting on Sat09/05/15 at 0908, Until Sat09/05/15 at 1050, nausea, Routine, Recovery (only) Given 09/05/2015 9:46 EST 6.25 mg fentaNYL citrate (PF) 50 mcg/mL injection 25-100 Given 09/05/2015 9:53 EST 50 mcg mcg 25-100 mcg, intravenous, EVERY 5 MIN PRN, Starting on Sat09/05/15 at 0908, Until Sat09/05/15 at 1206, Pain, Routine, Recovery (only) Given 09/05/2015 9:44 EST 50 mcg heparin injection 5,000 Units Given 09/05/2015 7:21 EST 5,000 Units 5,000 Units, subcutaneous, PRE-OP ONCE, 1 dose, On Sat09/05/15 at 0645, Routine, Pre-Op DOS Rx Approved heparin injection 5,000 Units Given 09/07/2015 8:08 EST 5,000 Units 5,000 Units, subcutaneous, EVERY 8 HOURS, First dose on Sat09/05/15 at 1600, Until Discontinued, Routine, On Unit Given 09/07/2015 0:04 EST 5,000 Units Given 09/06/2015 17:37 EST 5,000 Units HYDROmorphone (PF) (DILAUDID) 1 mg/mL injection Given 09/05/2015 10:37 EST 0.5 mg 0.2-1 mg 0.2-1 mg, intravenous, EVERY 10 MINUTES PRN, Starting on Sat09/05/15 at 0908, Until Sat09/05/15 at 1206, Pain, Routine, Recovery (only) Given 09/05/2015 10:20 EST 0.5 mg Given 09/05/2015 10:13 EST 0.4 mg HYDROmorphone 1 mg/ml (DILAUDID) DIRECTORY ASSISTANCE OPERATOR Rate Documented 09/06/2015 19:11 EST syringe, 30 ml intravenous, DIRECTORY ASSISTANCE OPERATOR, Starting on Sat09/05/15 at 1015, Until Sat09/07/15 at 0726, See PRN bolus orders for breakthrough pain. CLICK to see order details, Routine, DIRECTORY ASSISTANCE OPERATOR Dose (mg): 0.2, Lockout Interval (minutes): 10, Maximum Limit (mg/hr): 1.2, On Unit New Bag 09/06/2015 12:30 EST Rate Documented 09/05/2015 13:22 EST HYDROmorphone 1 mg/ml (DILAUDID) syringe, 30 ml Given 09/05/2015 13:24 EST 0.4 mg - Alaris PRN 0.4 mg, intravenous, EVERY 1 HOUR PRN, Starting on Sat09/05/15 at 1225, Until Sat09/07/15 at 0726, Pain, Routine, On Unit ketOROLAC (TORADOL) injection 15 mg Given 09/06/2015 20:08 EST 15 mg 15 mg, intravenous, EVERY 6 HOURS, 6 doses, First dose on Sat09/05/15 at 1845, Last dose on Sat09/06/15 at 1915, Routine, On Unit Given 09/06/2015 12:12 EST 15 mg Given 09/06/2015 6:18 EST 15 mg ketOROLAC (TORADOL) injection 30 mg Given 09/05/2015 13:40 EST 30 mg 30 mg, intravenous, NOW X1, 1 dose, On Sat09/05/15 at 1245, Routine, On Unit lactated ringers (LR) infusion New Bag 09/05/2015 6:15 EST 25 mL/hr 25 mL/hr at 25 mL/hr, 25 mL/hr, intravenous, CONTINUOUS, Starting on Sat09/05/15 at 0645, Until Sat09/05/15 at 1225, Routine, Pre-Op DOS Rx Approved lansoprazole (PREVACID SOLUTAB) disintegrating Given 09/07/2015 8:08 EST 30 mg tablet 30 mg 30 mg, oral, DAILY, First dose on Sat09/07/15 at 0900, Until Discontinued, Routine, On Unit metoCLOPramide (REGLAN) injection 10 mg Given 09/07/2015 5:43 EST 10 mg 10 mg, intravenous, EVERY 6 HOURS, 8 doses, First dose on Sat09/05/15 at 1245, Last dose on Sat09/07/15 at 0600, Routine, On Unit Given 09/07/2015 0:04 EST 10 mg Given 09/06/2015 17:38 EST 10 mg midazolam (PF) (VERSED) 1 mg/mL injectio n 1 mg Given 09/05/2015 10:57 EST 1 mg 1 mg, intravenous, EVERY 5 MIN PRN, 2 doses, Starting on Sat09/05/15 at 0908, Until Sat09/05/15 at 1206, Anxiety, Routine, Recovery (only) ondansetron (PF) (ZOFRAN) injection 4 mg Given 09/05/2015 10:13 EST 4 mg 4 mg, intravenous, ONCE PRN, 1 dose, Starting on Sat09/05/15 at 0949, Until Sat09/05/15 at 1013, Nausea, Routine, Recovery (only) ondansetron (PF) (ZOFRAN) injection 4 mg Given 09/06/2015 22:09 EST 4 mg 4 mg, intravenous, EVERY 4 HOURS PRN, Starting on Sat09/05/15 at 1225, Until Sat09/07/15 at 1423, Nausea, Routine, On Unit Given 09/06/2015 15:13 EST 4 mg oxyCODONE (ROXICODONE) solution 5-10 mg Given 09/07/2015 10:06 EST 10 mg 5-10 mg, oral, EVERY 3 HOURS PRN, Starting on Sat09/07/15 at 0000, Until Sat09/07/15 at 1423, Pain, Routine, On Unit pantoprazole (PROTONIX) injection 40 mg Given 09/05/2015 10:00 EST 40 mg 40 mg, intravenous, Once (NO Time Specified), 1 dose, Starting on Sat09/05/15 at 0949, Until Sat09/05/15 at 1000, Routine, Recovery (only) pantoprazole (PROTONIX) injection 40 mg Given 09/06/2015 8:15 EST 40 mg 40 mg, intravenous, DAILY, 1 dose, First dose on Sat09/06/15 at 0900, Routine, On Unit pantoprazole (PROTONIX) injection 40 mg Given 09/05/2015 21:36 EST 40 mg 40 mg, intravenous, NOW X1, 1 dose, On Sat09/05/15 at 2130, Routine documented in this encounter Discontinued Medications Medication Sig Discontinue Reason Start Date End Date HYDROcodone-acetaminophen Take 1 Tab by 09/10/2013 1 10/16/2014 (NORCO) 5-325 mg per mouth every 6 tablet hours as needed for Pain. pediatric multivitamin Take 1 Tab by 02/2016 (JUAN CHEW VIT) chewable mouth daily tablet oxyCODONE (ROXICODONE) 5 Take 10 mg by mg immediate release mouth every 4 tablet hours. ACETAMINOPHEN (TYLENOL Take 650 mg by 02/2016 ORAL) mouth as needed. documented as of this encounter Historical Medications This list may reflect changes made after this encounter. Medication Sig Dispensed Refills Start Date End Date pediatric multivitamin Take 1 Tab by mouth 0 09/07/2015 (JUAN CHEW VIT) chewable daily tablet added in this encounter Active and Recently Administered Medications Times are shown in EST. Scheduled Medication Order 09/05/2015 09/06/2015 09/07/2015 acetaminophen (OFIRMEV) IV solution 1,000 mg (COMPLETE D) 1011 (Given - Provider: Mahogany Deleon RN) 1,000 mg, intravenous, NOW X1, 1 dose, M on 09/05/15 at 0945, Is the patient NPO? If No, state reason why oral acetaminophen cannot be used in Comment field. Yes, Is this patient nothing by rectum? If No , state why rectal acetaminophen cannot be used in the Comment field. Yes, Are NSAIDs contraindicated in this patient? No, Is the patient in ED, PACU or ICU? Yes, Routine acetaminophen (TYLENOL) solution unit dose cup 650 mg 2320 (Not Given - Provider: Hortencia Franz RN - Reason: Patient/family refused) 0402 (Given - Provider: Hortencia Franz RN)0808 (Given - Provider: Belkis Braun RN)1212 (Given - Provider: Belkis Braun RN) 650 mg, oral, EVERY 4 HOURS, First dose on Sat09/07/15 at 0000, Until Discontinued, Routine ceFAZolin (ANCEF) 2 g in sodium chloride 0.9% 50 mL IV PB (COMPLETED) 1038 (Given - Provider: Mahogany Deleon RN) 2 g, intravenous, for 30 Minutes, ONCE, 1 dose, Starting Sat09/05/15 at 0949, Until Sat09/19/15 at 0948, Routine ceFAZolin (ANCEF) 2 g in sodium chloride 0.9% 50 mL IV PB (COMPLETED) 1544 (Given - Provider: Valente Hernandez) 0001 (Given - Provider: Vanesa Fonseca, ALEXANDER) 2 g, intravenous, for 30 Minutes, EVERY 8 HOURS, 2 doses, First dose on Sat09/05/15 at 1600, Last dose on Sat09/06/15 at 0000, Routine ceFAZolin (ANCEF) syringe 2 g (COMPLETED) 0800 (Given by Other - Provider: Valentine Luis RN - Comment: Given in OR by TEE Rodriguez) 2 g, intravenous, for 10 Minutes, PRE-OP ONCE, 1 dose, Sat09/05/15 at 0645, Routine heparin injection 5,000 Units (COMPLETED) 0721 (Given - Provider: Elo Min RN) 5,000 Units, subcutaneous, PRE-OP ONCE, 1 dose, 1/4/16 at 06 45, Routine heparin injection 5,000 Units (CANCELED) 1544 (Given - Provi dori: Valente Hernandez) 0001 (Given - Provider: Vanesa Fonseca RN)0815 (Given - Provider: Valente Hernandez)1737 (Given - Provider: Kizzy Leiva RN) 0004 (Given - Provider: Hortencia rFanz, ALEXANDER)0808 (Given - Provider: Belkis Braun RN) 5,000 Units, subcutaneous, EVERY 8 HOURS , First dose on Sat09/05/15 at 1600, Until Discontinued, Routine ketOROLAC (TORADOL) injection 15 mg (CANCELED) 181 (G iven - Provider: Valente Hernandez) 0001 (Given - Provider: Vanesa Fonseca RN) 0618 (Given - Provider: Vanesa Fonseca RN)1212 (Given - Provider: Valente Hernandez)1845 (Canceled Entry - Provider: Kizzy Leiva RN)2007 (Given - Provider: Hortencia Franz RN) 15 mg, intravenous, EVERY 6 HOURS, 6 dos es, First dose on Sat09/05/15 at 1845, Last dose on Sat09/06/15 at 1915, Routine ketOROLAC (TORADOL) injection 30 mg (COMPLETED) 1340 ( Given - Provider: Yola Jarvis) 30 mg, intravenous, NOW X1, 1 dose, Sat09/05/15 at 1245, Routine lansoprazole (PREVACID SOLUTAB) disintegrating tablet 30 mg (CAN CELED) 0808 (Given - Provider: Belkis Braun RN) 30 mg, oral, DAILY, First dose on 02/15 at 0900, Until Discontinued, Routine metoCLOPramide (REGLAN) injection 10 mg (COMPLETED) 13 40 (Given - Provider: Yola Jarvis)1904 (Given - Provider: Valente Hernandez) 0001 (Given - Provider: Vanesa Fonseca RN)0618 (Given - Provider: Vanesa Fonseca RN)1212 (Given - Provider: Valente Hernandez)1738 (Given - Provider: Kizzy Leiva RN)1900 (Canceled Entry - Provider: Kizzy Leiva RN) 0004 (Given - Provider: Hortencia Franz RN)0543 (Given - Provider: Hortencia Franz RN) 10 mg, intravenous, EVERY 6 HOURS, 8 dos es, First dose on Sat09/05/15 at 1245, Last dose on Sat09/07/15 at 0600, Routine pantoprazole (PROTONIX) injection 40 mg (COMPLETED) 10 00 (Given - Provider: Mahogany Deleon RN) 40 mg, intravenous, ONCE, 1 dose, Starti ng Sat09/05/15 at 0949, Until Sat09/05/15 at 1000, Routine pantoprazole (PROTONIX) injection 40 mg (COMPLETED) 0815 (Given - Provider: Valente Hernandez) 40 mg, intravenous, DAILY, 1 dose, First dose on Sat09/06/15 at 0 900, Routine pantoprazole (PROTONIX) injection 40 mg (COMPLETED) 21 36 (Given - Provider: Vanesa Fonseca RN) 40 mg, intravenous, NOW X1, 1 dose, Sat09/05/15 at 2130, Routine Continuous Medication Order 09/05/2015 09/06/2015 09/07/2015 dextrose 5 % and 0.45 % NaCl with KCl 20 mEq/L infusio n (CANCELED) 1007 (New Bag - Provider: Mahogany Deleon RN)1321 (Rate Documented - Provider: Yola Jarvis)1904 (New Bag - Provider: Valente Hernandez) 0350 (New Bag - Provider: Vanesa Fonseca RN)1213 (New Bag - Provider: Valente Hernandez)1911 (Rate Documented - Provider: Hortencia Franz RN)2008 (New Bag - Provider: Hortencia Franz RN) 0407 (New Bag - Provider: Hortencia Franz RN) at 125 mL/hr, 125 mL/hr, intravenous, CO NTINUOUS, Starting Sat09/05/15 at 1015, Until Sat09/07/15 at 0726, Routine HYDROmorphone 1 mg/ml (DILAUDID) DIRECTORY ASSISTANCE OPERATOR syringe, 30 ml (C ANCELED) 1028 (New Bag - Provider: Mahogany Deleon RN)1322 (Rate Documented - Provider: Yola Jarvis) 1230 (New Bag - Provider: Valente Hernandez) 1234 (Waste - Provider: Valente Hernandez - Comment: Wasting 6ml)191 (Rate Documented - Provider: Hortencia Franz RN) intravenous, DIRECTORY ASSISTANCE OPERATOR, Starting Sat09/05/15 at 1015, Until Sat09/07/15 at 0726, See PRN bolus orders for breakthrough pain. CLICK to see order details, Routine, DIRECTORY ASSISTANCE OPERATOR Dose (mg): 0.2, Lockout Interval (minutes): 10, Maximum Limit (mg/hr): 1.2 lactated ringers (LR) infusion (CANCELED) 0615 (New Ba g - Provider: Elo Min RN)0931 (Completed - Provider: Mahogany Deleon RN) at 25 mL/hr, 25 mL/hr, intravenous, CONT INUOUS, Starting Sat09/05/15 at 0645, Until Sat09/05/15 at 1225, Routine PRN Medication Order 09/05/2015 09/06/2015 09/07/2015 diphenhydrAMINE (BENADRYL) injection 12.5-25 mg (CANCE LED) 1340 (Given - Provider: Yola Jarvis)2136 (Given - Provider: Vanesa Fonseca RN) 2209 (Given - Provider: Hortencia Franz RN) 0549 (Given - Provider: Hortencia Franz RN) 12.5-25 mg, intravenous, EVERY 6 HOURS P RN, Starting Sat09/05/15 at 1225, Until Sat09/07/15 at 1423, Itching, Routine diphenhydrAMINE (BENADRYL) injection 6.25 mg (COMPLETE D) 0946 (Given - Provider: Mahogany Deleon RN)1050 (Given - Provider: Mahogany Deleon RN - Comment: for itchiness) 6.25 mg, intravenous, PRN, 2 doses, Star ting Sat09/05/15 at 0908, Until Discontinued, nausea, Routine fentaNYL citrate (PF) 50 mcg/mL injection 25-100 mcg ( CANCELED) 0944 (Given - Provider: Mahogany Deleon RN)0953 (Given - Provider: Mahogany Deleon RN) 25-100 mcg, intravenous, EVERY 5 MIN PRN , Starting Sat09/05/15 at 0908, Until Sat09/05/15 at 1206, Pain, Routine HYDROmorphone (PF) (DILAUDID) 1 mg/mL injection 0.2-1 mg (CANCELED) 0952 (Given - Provider: Mahogany Deleon RN)1013 (Given - Provider: Mahogany Deleon RN)1020 (Given - Provider: Mahogany Deleon RN)1037 (Given - Provider: Mahogany Deleon RN) 0.2-1 mg, intravenous, EVERY 10 MINUTES PRN, Starting Sat09/05/15 at 0908, Until Sat09/05/15 at 1206, Pain, Routine HYDROmorphone 1 mg/ml (DILAUDID) syringe, 30 ml - Alar is PRN (CANCELED) 1324 (Given - Provider: Yola Jarvis) 0.4 mg, intravenous, EVERY 1 HOUR PRN, S tarting Sat09/05/15 at 1225, Until Sat09/07/15 at 0726, Pain, Routine midazolam (PF) (VERSED) 1 mg/mL injection 1 mg (CANCEL ED) 1057 (Given - Provider: Mahogany Deleon RN) 1 mg, intravenous, EVERY 5 MIN PRN, 2 do ses, Starting Sat09/05/15 at 0908, Until Sat09/05/15 at 1206, Anxiety, Routine ondansetron (PF) (ZOFRAN) injection 4 mg (COMPLETED) 1 013 (Given - Provider: Mahogany Deleon RN) 4 mg, intravenous, ONCE PRN, 1 dose, Sta rting Sat09/05/15 at 0949, Until Sat09/05/15 at 1013, Nausea, Routine ondansetron (PF) (ZOFRAN) injection 4 mg (CANCELED) 1513 (Given - Provider: Valente Hernandez)2209 (Given - Provider: Hortencia Franz, ALEXANDER) 4 mg, intravenous, EVERY 4 HOURS PRN, St arting Sat09/05/15 at 1225, Until Sat09/07/15 at 1423, Nausea, Routine oxyCODONE (ROXICODONE) solution 5-10 mg 1006 (Given - Provider: Kristin Abebe RN) 5-10 mg, oral, EVERY 3 HOURS PRN, Starti ng Sat09/07/15 at 0000, Until Sat09/07/15 at 1423, Pain, Routine documented in this encounter Orders Medications Ordered That Might Not Have Count Last Ord ered Date First Ordered Date Been Administered acetaminophen (TYLENOL) suppository 650 mg 1 09/05 atropine 0.1 mg/mL syringe 0.5 mg 1 09/05/2015 hydrALAzine (APRESOLINE) 10 mg in sodium 1 016 chloride (NS) 0.9 % 50 mL IVPB HYDROmorphone (PF) (DILAUDID) 1 mg/mL 1 09/05/2015 injection 0.2-0.4 mg lactated ringers (LR) infusion 1 09/05/2015 meperidine (PF) (DEMEROL) 25 mg/0.5 mL 6 injection 12.5 mg metoCLOPramide (REGLAN) injection 10 mg 1 09/05/19 16 nalOXone (NARCAN) injection 0.1 mg 1 09/05/2015 nalOXone (NARCAN) injection 0.2 mg 1 09/05/2015 ondansetron (PF) (ZOFRAN) injection 2 mg 1 016 ondansetron (ZOFRAN-ODT) disintegrating 1 09/05/19 16 tablet 4 mg oxyCODONE (ROXICODONE INTENSOL) 1 09/05/2015 concentrated solution 10 mg promethazine (PHENERGAN) injection 25 mg 2 016 Procedures Count Last Ordered Date First Ordered Date ECG REPORT - SCANNED 2 09/12/2015 08/30/2015 Diet Count Last Ordered Date First Ordered Date DISCHARGE DIET 1 09/07/2015 Nursing Count Last Ordered Date First Ordered Date ACTIVITY INSTRUCTIONS 1 09/07/2015 WOUND CARE INSTRUCTIONS 1 09/07/2015 INSERT MI CATHETER 1 09/05/[address] SEQUENTIAL COMPRESSION DEVICE 1 09/05/2015 IV Count Last Ordered Date First Ordered Date IV REQUEST 1 09/06/2015 Admission Count Last Ordered Date First Ordered Date STATUS: INPATIENT DOSA/DOPA DAY OF 09/05/2015 SURGERY/PROCEDURE ADMISSION Transfer Count Last Ordered Date First Ordered Date NOTIFY PPS OF DISCHARGE COMPLETE 09/07/2015 NOTIFY PPS PATIENT ARRIVAL IN PACU 1 09/05/2015 NOTIFY PPS PATIENT TRANSFERRED OUT OF PACU 1 09/05 PPS NOTIFICATION OF PATIENT ARRIVAL ON 6 UNIT Discharge Count Last Ordered Date First Ordered Date DISCHARGE PATIENT 1 09/07/2015 documented in this encounter Care Teams Shipping Team Leader Relationship Specialty Start Date End Date Alejandra Trevino MD PCP - General 09/25/12 12/07/18 [address] [place] [address] documented as of this encounter
--- OUTSIDE RECORDS SUMMARY | 2022-06-15 07:54 | XMS_ITS | Encounter Summary ---
:1975 Author Organization [facility] Address [address] [place] [address] Care Team Providers Name Role Phone Juma eHrrera MD Primary Care Provider Unavailable Reason for Visit Reason Onset Date Comments Appointment Related 11/13/2012 called with skin bio psy appt with Dr. Graves for 01/07 Encounter Details Date Type Department Care Team Description 11/13/2012 Telephone [facility] Zachery Walters MD Appointment Related Neurology - S [address] [facility] (called with skin 1 [facility] [place] [address] [facility] [address] [place] for 01/07 ) [phone] [place] [address] (Wo rk) Social History Tobacco [...] this encounter Miscellaneous Notes Telephone Encounter - Charlette Fritz - 11/17/2012 1032 EDT Patient was called with the biopsy appt documented in this encounter Plan of Treatment Upcoming Encounters Date Type Specialty Care Team Description 06/25/2022 Telemedicine Neurology Kj Gloria MD PhD 1 [facility], [address] [place], [place] [address] (Wo rk) 09/06/2022 Procedure visit Pain Medicine Catalino Garrett M D [address] [facility] [address] [place] [address] (Wo rk) 09/21/2022 Office Visit Bariatrics Allen Thompson, PALizettC [address] [facility], [facility], [address] [place], [place] [address] (Wo rk) documented as of this encounter Visit Diagnoses Not on filedocumented in this encounter Care Teams Tree Farmer Relationship Specialty Start Date End Date Juma Herrera MD PCP - General 09/25/12 12/07/18 [address] [place] [address] documented as of this encounter
--- OUTSIDE RECORDS SUMMARY | 2022-06-15 07:54 | XMS_ITS | Encounter Summary ---
:1975 Author Organization [facility] Address [address] [place] [address] Care Team Providers Name Role Phone Juma Herrera MD Primary Care Provider Unavailable Encounter Details Date Type Department Care Team Description 12/03/2014 Documentation Visit [facility] Edward Dumont, Bariatric Surgery - [address] [place] [address] [address] [place], [place] [phone] Social History Tobacco Use Types Packs/Day Years [...] of this encounter Progress Notes Lux Dumont - 04/01/2015 1639 EDT See flowsheet documented in this encounter Plan of Treatment Upcoming Encounters Date Type Specialty Care Team Description 06/25/2022 Telemedicine Neurology Kj Gloria MD PhD 1 [facility] 2 [place], [place] [address] (Wo rk) 09/06/2022 Procedure visit Pain Medicine Catalino Garrett M D [address] [place] [address] [address] [place] [phone] (Wo rk) 09/21/2022 Office Visit Bariatrics Allen Thompson PA-C 111 [facility], [facility], [address] [place], [place] [address] (Wo rk) documented as of this encounter Visit Diagnoses Not on filedocumented in this encounter Care Teams Lawn Mower Sharpener Relationship Specialty Start Date End Date Juma Herrera MD PCP - General 09/25/12 12/07/18 [address] [place] [address] documented as of this encounter
--- OUTSIDE RECORDS SUMMARY | 2022-06-15 07:54 | XMS_ITS | Encounter Summary ---
:1975 Author Organization [facility] Address [address] [place] [address] Care Team Providers Name Role Phone Juma Herrera MD Primary Care Provider Unavailable Reason for Visit Consult, Test and Treat (Routine) - Specialty Report Received Specialty Diagnoses / Procedures Referred By Contact Refer red To Contact Diagnoses GERD (gastroesophageal reflux disease) Master Ugarte Richar d S, MD Procedures UPPER ENDOSCOPY MD Marques [address] [place] [phone] [facility], [address] [place] [address] Phone: Fax: Referral ID Status Reason Start Date Expiration Date Visits V isits Requested Authorized [id number] Specialty 01/28/2015 1 1 Report Received Encounter Details Date Type Department Care Team Description 02/10/2015 Hospital Encounter [facility] Cheng Lamar, Endoscopy - [facility] [place] [address] [address] [address], [place] [address] (Wo rk) Social History Tobacco [...] Code Departure Means Destination Home or Self Senior Care documented in this encounter Plan of Treatment Upcoming Encounters Date Type Specialty Care Team Description 06/25/2022 Telemedicine Neurology Kj Gloria MD PhD 1 [facility], [address] [place], [place] [phone] (Jayjay anaya) 09/06/2022 Procedure visit Pain Medicine Catalino Garrett M D [address] [facility] [address] [place] [address] (Jayjay anaya) 09/21/2022 Office Visit Bariatrics Allen Thompson, ZHOUC [address] [place] [address] [facility], [facility], [address] [place], [place] [address] (Wo rk) documented as of this encounter Visit Diagnoses Not on filedocumented in this encounter Care Teams Tobacco Wrapping Machine Tender Relationship Specialty Start Date End Date Juma Herrera MD PCP - General 09/25/12 12/07/18 [address] [place] [address] documented as of this encounter
--- OUTSIDE RECORDS SUMMARY | 2022-06-15 07:55 | XMS_ITS | Encounter Summary ---
:1975 Author Organization [facility] Address [address] [place] [address] Care Team Providers Name Role Phone Donna Mohr NP Primary Care Provider Reason for Visit Reason Comments New Patient Visit Encounter Details Date Type Department Care Team Description 07/23/2012 Office Visit [facility] Zachery Walters MD Numbness and tingling; Neurology - S 1 [facility] Pain, arm, right [address] 1 [facility], Level 2 [place] [address] [place], [place] [phone] (Wo rk) Social History Tobacco Use [...] Sign Reading Time Taken Comments Blood Pressure 120/74 07/23/2012 1315 EST Pulse 96 07/23/2012 1315 EST Temperature - - Respiratory Rate 16 07/23/2012 1315 EST Oxygen Saturation - - Inhaled Oxygen Concentration - - Weight 127 kg (280 lb) 07/23/2012 1315 EST Height 172.7 cm (5' 8) 07/23/2012 1315 EST Body Mass Index 42.57 07/23/2012 1315 EST documented in this encounter Progress Notes Zachery Walters MD - 07/23/2012 1402 EST This office note has been dictated. documented in this encounter Procedure Notes ASSISTANT COUNSEL, SCAN 2 - 07/28/2012 1044 ESTAssociated Order(s): PATHOLOGY - SCANNED ASSISTANT COUNSEL, SCAN 2 - 07/28/2012 1044 ESTAssociated Order(s): PATHOLOGY - SCANNED documented in this encounter Consult Notes Zachery Walters MD - 07/28/2012 1214 EST NEUROLOGY HEALTH CARE SERVICE CONSULTATION - 07/23/2012 PROBLEM 4: Numbness and tingling in feet. PROBLEM 5: Neck and right arm pain with right index, middle fingers and thumb numbness and tingling. 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 Dr Herrera of [facility] in [place], [place] is her family physician. She attended alone. CHIEF COMPLAINT: I am here for my feet since when I have found I have two herniated disks in my neck. HISTORY OF PRESENT ILLNESS: The patient notes that she was well until about 5 years ago, at which time she developed intermittent aching in the feet. She was diagnosed with plantar fasciitis and given a special inserts into her shoes that helped her symptoms. About 2 years ago she began experiencing numbness and tingling in her feet with an associated burning sensation and as if her feet were going to explode. There is also some pain on the outer part of the foot in the middle on both sides, right more than left. She, in the last 6 to 7 months, has developed some numbness in her right hand, particularly in the index and middle fingers and thumb, which travels up the back of the forearm and the upper arm. She feels the strength in her right arm is decreased and also in the hand over the last 3 months with difficulty holding onto objects and lifting, and this is stable. She goes to physical therapy regularly and has been doing strengthening for her right Arm. Her balance is good. There is no postural dizziness. PAST MEDICAL HISTORY: Bipolar disease for several years with associated anxiety and depression and fear of new people, migraine since age 7, worse over the years, for which she has seen a headache specialist at [facility]; lumbar radiculopathy, and tarsal tunnel syndrome. PAST SURGICAL HISTORY: Lumbar partial diskectomy at L5-S1 by Dr Bowers at [facility] many years ago for leg pain that was unhelpful; cholecystectomy in 1992, tubal ligation in 1992, second surgery on the back by Dr Kj Child for fusion of L5 and S1 with improvement of leg pain and some improvement of back pain and this was done about 6 years ago; tarsal tunnel syndrome surgery done on right foot by Dr Keys about 7 months ago. REVIEW OF SYSTEMS: A 15-point review of systems was undertaken as documented in the patient's chart,and this was significant for some pain in her neck going down her right arm at times and into her armpit, knee pain bilaterally and low back pain; weakness and numbness as above; cough due to prior smoking; difficulty getting to sleep and staying asleep. MEDICATIONS: Tylenol 650 mg p.r.n. Cymbalta 90 mg daily. Ibuprofen 600 mg q.6 h. p.r.n. Methylphenidate 20 mg 3 times daily. Pregabalin 100 mg in the morning and at bedtime and 50 mg midday. Topiramate 200 mg twice daily. ALLERGIES: BEE STING that produced swelling with fever and vomiting and CODEINE that caused hives with nausea and vomiting. SOCIAL HISTORY: Smoked 2 packs per day for 25 years but gave up 4 years ago. Does not drink alcohol,has two cups of coffee and 2 liters of diet soda to drink in a day. 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 FAMILY HISTORY: Father, she does not know details about; mother, Nena, age 56, has depression, brother, Neo, age 37, has depression and problem with drugs and alcohol, a sister Clarissa is 32, has a problem with overuse of marijuana and has a clotting disorder for which she takes Coumadin. The patient's maternal grandfather also has some sort of a clotting disorder and Parkinson's disease. Daughter Elizabeth age 19, is healthy, daughter Selena age 18 has bipolar disease and daughter Valente age 14, hasdepression. OBJECTIVE: Overweight, well-dressed, undistressed female whose blood pressure was 120/74 mm, pulse was 86 per minute and regular, respirations were 16 per minute and regular. Height was 5 feet 8 inchesand weight was 280 pounds with clothes and shoes. There were no carotid bruits audible. Pain rating tool score was 7/10 with pain reported in the feet. Heart showed S1 and S2 with no murmurs, clicks orgallops. Lungs were clear to auscultation. Abdomen was obese, benign, nontender with good bowel sounds. Extremities showed no cyanosis, clubbing or edema. She had diffuse tattoos over her torso and extremities and a pierced left eyebrow. Mental status testing showed that she was alert and oriented with reasonably good fund of knowledge,memory, recall, calculations, abstractability, judgment, comprehension, speech and language functions. Cranial nerve exam showed pupils that were 3 mm and reactive, visual rocha were good to bedside testing, extraocular movements were complete, facial sensations were normal to light touch and cold, face was symmetrical and strong, hearing was normal to conversation, and strength of uvula, palate, tongue, neck flexors, neck extensors, sternocleidomastoids and trapezii was normal. Motor exam showed good muscle tone and bulk in the limbs, with also normal strength in the left upper extremity and both lower extremities, but testing of right upper extremity was compounded by pain limitation and thus incomplete effort. Reflexes were 1+ in the right upper extremity, 2+ elsewhere in the limbs except for 1+ at ankles andthe plantars were flexor. Sensory examination showed a glove and stocking diminution of cold up to the metacarpophalangeal joints and ankles; vibration was impaired at the right index finger at 17 seconds and middle finger at 7seconds, but was normal in the feet; position sensation was normal. Coordination testing showed no ataxia in the limbs. Stance was wide-based because of her habitus and Romberg sign was negative. Casual gait was unremarkable. She could walk on her toes, but refused to walk on her heels and couldwalk in tandem fashion. LABORATORY DATA: Lab testing was available only from 2006 that showed serum glucose 91, electrolytesnormal, creatinine 0.71, BUN 8, hemogram and differential showed a mild anemia. ASSESSMENT: Her problems appear to be largely two: Neck pain and right arm pain that could be on thebasis of a cervical radiculopathy due to degenerative cervical spine disease about which she has been told in the past on the basis of an MRI scan done of her neck at an outside hospital. Number two, numbness in her feet, most likely on the basis of a mild polyneuropathy. I discussed the above with the patient and suggested further testing, as below, to which she was agreeable. In terms of her neuropathic pain, should this continue, she can increase the dose of Lyrica in a month to 50 mg 2 capsules 3 times a day. PLAN: 1. Diagnostic: a. Blood for hemogram with differential, comprehensive metabolic panel, sedimentation rate, C-reactive protein, B1, B6, B12, T3, T4, TSH, serum immunofixation, hemoglobin A1c. b. Spot urine for Bence-Bryant protein. c. EMG and nerve conductions of right limbs for neuropathy screen and right upper extremity for radiculopathy screen. 2. Therapeutic: As above. 3. Return to clinic to see me in 2 months. Electronically Signed by Zachery Walters MD 07/29/2012 17:52 Zachery Walters MD - Zachery Walters MD - MS Job ID: SM Doc ID: [id number] Ext Doc ID: [id number] cc: MD Dr Javier Guzman* documented in this encounter Plan of Treatment Upcoming Encounters Date Type Specialty Care Team Description 06/25/2022 Telemedicine Neurology Kj Gloria MD PhD 1 [facility], Level 2 [place], [place] [phone] (Wo rk) 09/06/2022 Procedure visit Pain Medicine Catalino Garrett M D [address] [facility] [address] [place] [address] (Wo rk) 09/21/2022 Office Visit Bariatrics Allen Thompson PA-C [address] [facility], [facility], [address] 5 [place], [place] [phone] (Wo rk) documented as of this encounter Procedures Procedure Name Priority Date/Time Associated Diagnosis Comme nts PATHOLOGY - SCANNED 07/28/2012 10:44 Resu lts for this EST procedure are i n the results section. PATHOLOGY - SCANNED 07/28/2012 10:44 Resu lts for this EST procedure are i n the results section. documented in this encounter Results PATHOLOGY - SCANNED (07/28/2012 10:44 EST) Specimen Narrative 07/28/2012 11:09 EST Procedure Note ASSISTANT COUNSEL, SCAN 2 - 07/28/2012 10:44 EST PATHOLOGY - SCANNED (07/28/2012 10:44 EST) Specimen Narrative 07/28/2012 11:09 EST Procedure Note ASSISTANT COUNSEL, SCAN 2 - 07/28/2012 10:44 EST T3, TOTAL (07/23/2012 14:19 EST) Pathologist Sig nature T3, Total 112 60 - 181 ng/dL [facility] Specimen Blood specimen (specimen) Performing Organization Address City/State/ZIP Code Phon e Number [facility] [address] [place] [address] SERVICES [facility] [address] [place] [address] TSH (07/23/2012 14:19 EST) Pathologist Sig nature TSH 0.93 0.35 - 5.00 uIU/ml [facility] Specimen Blood specimen (specimen) Performing Organization Address [facility] Phon e Number [facility] [address] [place] [address] SERVICES [facility] [address] [place] [address] T4 FREE (07/23/2012 14:19 EST) Pathologist Sig nature Free T4 1.0 0.8 - 1.8 ng/dL [facility] Specimen Blood specimen (specimen) Performing Organization Address [facility] Phon e Number [facility] [address] [place] [address] SERVICES [facility] [address] [place] [address] HEMOGLOBIN A1C (07/23/2012 14:19 EST) Hemoglobin A1C 5.2 % [facility] Comment: Reference Range: <5.7% Normal 5.7-6.4% Increased risk for diabetes =>6.5% Diagnostic for diabetes (if confirmed) The A1c goal for non adults in general is <7%. The A1c goal for selected patients may be significantly lower than 7% if this can be achieved without significant hypoglycemia or other adverse effects of treatment. Est Avg Glucose 103 mg/dl [facility] Comment: eAG represents the A1c result expressed as average glucose in mg/dl. Specimen Blood specimen (specimen) Performing Organization Address [facility] Phon e Number [facility] [address] [place] [address] SERVICES [facility] [address] [place] [address] FOLATE (07/23/2012 14:19 EST) Pathologist Sig nature Folate 8.7 ng/mL [facility] Comment: Deficient: ??Less than 3.4 ng/mL Indeterminate: ??3.4-5.4 ng/mL Normal: ??Greater than 5.4 ng/mL Specimen Blood specimen (specimen) Performing Organization Address [facility] Phon e Number [facility] [address] [place] [address] SERVICES [facility] [address] [place] [address] MONOCLONAL PROTEIN STUDY, URINE RANDOM (07/23/2012 14:19 EST) Tot Prot,Ur 10 mg/dl [facility] Albumin, Urine 29.1 % [facility] Globulins, Urine 70.9 % [facility] Comments Electrophoresis [facility] screening performed, LAB immunofixation to follow. Immunofixation,Ur Interpretation: [facility] Comment: LAB Negative for free monoclonal light chains. Interpreted by: Raysa Rothman MD Reference Range: Negative for free monoclonal light chains. Specimen Urine (substance) - Urine Performing Organization Address [facility] Phon e Number [facility] [address] [place] [address] SERVICES [facility] [address] [place] [address] IMMUNOFIXATION/SPEP (07/23/2012 14:19 EST) Pathologist [facility] Total Protein 6.9 6.5 - 8.3 [facility] g/dl LAB Albumin, SPEP 57.8 47.6 - 61.9 % [facility] Alpha 1, SPEP 3.5 1.4 - 4.6 % [facility] Alpha 2, SPEP 11.0 7.3 - 13.9 % [facility] Beta, SPEP 15.8 10.9 - 19.1 % [facility] Gamma, SPEP 11.9 9.5 - 24.8 % [facility] Comments, SPEP No apparent monoclonal protein [facility] Comment: LAB on serum electrophoresis. See Pathology Scanned Report in PRISM. Immunofixation,se Interpretation: [facility] Comment: LAB Negative for monoclonal immunoglobulins. Interpreted by: Raysa Rothman MD Reference Range: Negative for monoclonal immunoglobulins. Specimen Blood specimen (specimen) Performing Organization Address City/[facility] Phon e Number [facility] [address] [place] [address] SERVICES [facility] [address] [place] [address] PYRIDOXAL 5 PHOSPHATE (PLP), PLASMA (07/23/2012 14:19 EST) Pathologist [facility] Pyridoxal 5 7 5 - 50 mcg/L [facility]ate Comment: LAB Performed by: [facility] Remote Assistant [place], [address], [place] [address], Customer Account Manager: Yoly Nobles, Ph.D. Specimen Blood specimen (specimen) Performing Organization Address [facility]/ZIP Code Phon e Number [facility] [address] [place] [address] SERVICES [facility] [address] [place] [address] THIAMIN (VITAMIN B1), WB (07/23/2012 14:19 EST) Thiamin (Vit B1), 119 70 - 180 [facility] Comment: nmol/L LAB Performed by: [facility] [place], [address], [place] [address], Customer Account Manager: Yoly Nobles, Ph.D. Specimen Blood specimen (specimen) Performing Organization Address [facility]/ZIP [facility] Phon e Number [facility] [address] [place] [address] SERVICES [facility] [address] [place] [address] VITAMIN B12 (07/23/2012 14:19 EST) Pathologist Sig nature Vitamin B-12 444 211 - 911 pg/ml [facility] Specimen Blood specimen (specimen) Performing Organization Address [facility]/ZIP [facility] Phon e Number [facility] [address] [place] [address] SERVICES [facility] [address] [place] [address] SED. RATE:WESTERGREN (07/23/2012 14:19 EST) Pathologist Sig nature Sed. Rate Westergren 14 0 - 20 mm/hr [facility] Specimen Blood specimen (specimen) Performing Organization Address [facility] Phon e Number [facility] [address] [place] [address] SERVICES [facility] [address] [place] [address] (ABNORMAL) C-REACTIVE PROTEIN (07/23/2012 14:19 EST) Pathologist Sig nature C-Reactive Protein 1.3 (H) <1.0 mg/dl [facility] Specimen Blood specimen (specimen) Performing Organization Address [facility]/ZIP Code Phon e Number [facility] [address] [place] [address] SERVICES [facility] [address] [place] [address] COMPREHENSIVE METABOLIC PANEL (CMP) (07/23/2012 14:19 EST) Pathologist [facility] nature Potassium 3.7 3.5 - 5.0 mEq/L [facility] Sodium 139 136 - 145 mEq/L [facility] Chloride 106 96 - 110 mEq/L [facility] CO2 24 24 - 32 mEq/L [facility] Total Alkaline 65 38 - 126 U/L [facility] Phosphatase Bilirubin, Total <0.5 0.2 - 1.3 mg/dl [facility] AST 17 15 - 46 U/L [facility] ALT 30 9 - 52 U/L [facility] Albumin 4.2 3.4 - 4.9 g/dl [facility] Total Protein 6.9 6.5 - 8.3 g/dl [facility] Creatinine 0.78 0.52 - 1.04 [facility] mg/dl GFR, Calculated >60 >60 [facility] ml/min/1.73m2 BUN 12 10 - 26 mg/dl [facility] Calcium 9.4 8.5 - 10.5 [facility] mg/dl Calculated Calcium 9.6 8.5 - 10.5 [facility] mg/dl Glucose, Serum 77 70 - 100 mg/dl [facility] Fasting? Unknown [facility] Specimen Blood specimen (specimen) Performing Organization Address City/State/ZIP Code Phon e Number [facility] [address] [place] [address] SERVICES [facility] [address] [place] [address] documented in this encounter Visit Diagnoses Diagnosis Numbness and tingling Disturbance of skin sensation Pain, arm, right Pain in limb documented in this encounter Historical Medications This list may reflect changes made after this encounter. Medication Sig Dispensed Refills Start Date End Date duloxetine (CYMBALTA) 30 Take 30 mg by mouth 0 09/22/2012 mg capsule 2 times daily. pregabalin (LYRICA) 50 mg Take by mouth. 2 0 08/21/2012 capsule tabs am, 2 tab mid day, 2 tabs pm added in this encounter Care Teams Zinc Skimmer Relationship Specialty Start Date End Date Donna Mohr NP PCP - General 10/24/11 09/24/[address] [place] [address] [place] [address] documented as of this encounter
--- OUTSIDE RECORDS SUMMARY | 2022-06-15 07:55 | XMS_ITS | Encounter Summary ---
:1975 Author Organization [facility] Address [address] [place] [address] Care Team Providers Name Role Phone Brian Lindsay MD Primary Care Provider Unavailable Reason for Visit Reason Onset Date Comments Appointment Related 08/07/2011 MRI and Follow-up ap pointments Encounter Details Date Type Department Care Team Description 08/07/2011 Telephone [facility] Foot Catalino Keys Appointment Related & Ankle Program - DMD (MRI and Follow-up [address] appointments) [address] [facility] [address] [place], [place], [place] [address] [place] [address] Social History Tobacco Use Types Packs/Day [...] this encounter Miscellaneous Notes Telephone Encounter - Andrea Victor - 08/07/2011 3482 EST Hannah confirmed she could make the following appointments: MRI Date: 08/15/11 Time: 2:45pm Location: [facility] Follow Up Physician: Ludmila Date: 08/16/11 Time: 11:30am Andrea Victor 08/07/2011 documented in this encounter Plan of Treatment Upcoming Encounters Date Type Specialty Care Team Description 06/25/2022 Telemedicine Neurology Kj Gloria MD PhD 1 [facility], Level [address] [place], [place] [phone] (Wo rk) 09/06/2022 Procedure visit Pain Medicine Catalino Garrett M D [address] [facility] [address] [place] [address] (Wo rk) 09/21/2022 Office Visit Bariatrics Allen Thompson, PA-C [address] [facility], [facility], [address] [place], [place] [address] (Wo rk) documented as of this encounter Visit Diagnoses Not on filedocumented in this encounter Care Teams Spa Associate Relationship Specialty Start Date End Date Brian Lindsay MD PCP - General 04/11/11 10/23/11 documented as of this encounter
--- OUTSIDE RECORDS SUMMARY | 2022-06-15 07:55 | XMS_ITS | Encounter Summary ---
:1975 Author Organization [facility] Address [address] [place] [address] Care Team Providers Name Role Phone RosibeljonathanDonna mcgee NP Primary Care Provider Reason for Visit Reason Comments Post-OP Follow Up Right tarsal tunnel release 11/01/11 Encounter Details Date Type Department Care Team Description 11/13/2011 Office Visit [facility] Catalino Keys tunnel syndrome Foot & Ankle Program - DMD of right side (Primary Scout [address] Dx) [address] [place], [facility] [address] [phone] Social History Tobacco Use Types Packs/Day Years [...] Sig Dispensed Refills Start Date End Date hydrocodone-acetaminophen Take 1 Tab by mouth 60 Tab 0 0 11/13/2011 01/21/2012 (LORTAB) 7.5-500 mg per every 4 hours as tabletIndications: Tarsal needed for Pain. tunnel syndrome of right side documented in this encounter Progress Notes Catalino Keys MD - 11/13/2011 1228 EDT Diagnosis: 1. Tarsal tunnel syndrome of right side (355.5) hydrocodone-acetaminophen (LORTAB) 7.5-500 mg per tablet Subjective: Tia Spain is being seen today for Post-OP Follow Up . She was originally sent as a consultation from Dr. Lindsay She is now 2 weeks post right tarsal tunnel release. The patient denies fever, wound drainage, increasing redness, pus, increasing pain, increasing swelling. Post op problems reported: none. Current immobilization: short-leg splint. Pain Vitals: Pain Location: Ankle (medial aspect) Numeric Pain Level (Scale 1-10): 1 Pain in another site? : No Pain Quality: Sore Outpatient Prescriptions Prior to Visit Medication Sig Dispense Refill ??? oxycodone (ROXICODONE) 5 mg immediate release tablet Take 1-2 Tabs by mouth every 4 hours as needed for Pain. 60 Tab 0 ??? gabapentin (NEURONTIN) 100 mg capsule Take 300 mg by mouth 3 times daily. ??? methylphenidate (RITALIN SR; METADATE ER; METHYLIN ER) 20 mg SR tablet Take 20 mg by mouth 3 times daily. Takes 20 mg every morning, 20 mg every afternoon, 10 mg every evening. ??? ibuprofen (MOTRIN) 200 mg tablet 600 mg every 6 hours as needed. ??? ACETAMINOPHEN (TYLENOL ORAL) Take 650 mg by mouth as needed. ??? topiramate (TOPAMAX) 100 mg tablet Take 200 mg by mouth 2 times daily. ??? duloxetine (CYMBALTA) 30 mg capsule Take 90 mg by mouth daily. Allergies Allergen Reactions ??? Codeine Objective: General : alert, no distress Gait: on crutches. Neurovascular: decreased over the MPN on the right Incision: healing well, no significant drainage, no dehiscence, no significant erythema Tenderness: right: moderate Swelling: right: moderate Imaging: none Assessment: Status post right tarsal tunnel release. Doing well postoperatively. Plan: 1. Tarsal tunnel syndrome of right side (355.5) hydrocodone-acetaminophen (LORTAB) 7.5-500 mg per tablet No orders of the defined types were placed in this encounter. Immobilization: walking boot Activities: can go back to work as of 11/25/11 Medications: Vicodin Imaging at next visit::none Follow up: Return in about 1 month (around 12/14/2011). Cc: Referring Provider - Dr. Lindsay PCP - Donna Mohr documented in this encounter Procedure Notes INGOT PASSER, SCAN 2 - 12/06/2011 1332 EDTAssociated Order(s): ORDERS - SCANNED documented in this encounter Plan of Treatment Upcoming Encounters Date Type Specialty Care Team Description 06/25/2022 Telemedicine Neurology Kj Gloria MD PhD 1 [facility] 2 [place], [place] [address] (Wo rk) 09/06/2022 Procedure visit Pain Medicine Catalino Garrett M D [address] [facility] [address] [place] [address] (Jayjay anaya) 09/21/2022 Office Visit Bariatrics Allen Thompson PA-C [address] [facility], [facility], Level 5 [place], [place] [address] (Wo rk) documented as of this encounter Procedures Procedure Name Priority Date/Time Associated Diagnosis Comme nts ORDERS - SCANNED 12/06/2011 13:32 EDT Res ults for this procedure are i n the results section. documented in this encounter Results ORDERS - SCANNED (12/06/2011 13:32 EDT) Specimen Narrative This result has an attachment that is no t available. Transcriptions INGOT PASSER, SCAN 2 - 12/06/2011 13:32 EDT documented in this encounter Visit Diagnoses Diagnosis Tarsal tunnel syndrome of right side - P rimary Tarsal tunnel syndrome documented in this encounter Care Teams Packing Room Worker Relationship Specialty Start Date End Date Donna Mohr NP PCP - General 10/24/11 09/24/12 [place] [address] documented as of this encounter
--- OUTSIDE RECORDS SUMMARY | 2022-06-15 07:55 | XMS_ITS | Encounter Summary ---
:1975 Author Organization [facility] Address [address] [place] [address] Care Team Providers Name Role Phone Onur Donna PLATT Primary Care Provider Encounter Details Date Type Department Care Team Description 08/18/2012 Abstract [facility] Kj Child, Jacob Butterfield MD [address] [facility] [address] [facility],, [address] [address] [place], [place] [phone] (Jayjay anaya) Social History Tobacco Use Types Packs/Day Years [...] PhD 1 [facility], Level [address] [place], [place] [address] (Jayjay anaya) 09/06/2022 Procedure visit Pain Medicine Catalino Garrett M D [address] [facility] [address] [place] [address] (Jayjay anaya) 09/21/2022 Office Visit Bariatrics Allen Thompson PA-C [address] [place] [address] [facility], [facility], Level [address] [place], [place] [address] (Wo rk) documented as of this encounter Visit Diagnoses Not on filedocumented in this encounter Care Teams Developer Evangelist Relationship Specialty Start Date End Date Donna Mohr NP PCP - General 10/24/11 09/24/[address] [place] [address] documented as of this encounter
--- OUTSIDE RECORDS SUMMARY | 2022-06-15 07:55 | XMS_ITS | Encounter Summary ---
:1975 Author Organization [facility] Address [address] [place] [address] Care Team Providers Name Role Phone LailajordynjonathaneverardoDonna GIULIA Primary Care Provider Reason for Visit Reason Onset Date Comments Ankle Pain 01/15/2012 Encounter Details Date Type Department Care Team Description 01/15/2012 Telephone [facility] Gabriel Lorenzo MD Ankle Pain Ankle Program - [facility] [address] [facility] [address] [facility] [place] [phone] (Wo rk) Social History Tobacco Use [...] this encounter Miscellaneous Notes Telephone Encounter - Gabriel Keys MD - 01/17/2012 0814 EDT I agree that having her come in for a visit is the best thing to do. From the description, it isn't obvious to me what is the source of her pain. GABRIEL KEYS MD elephone Encounter - Andrea Victor - 01/15/2012 7642 EDT Tia is s/p 10/31/11 tarsal tunnel release. She calls today very concerned about the pain and swelling in her foot. She claims that her feet areon fire and rates the pain as a 10 on the 1-10 pain scale. She has been working part time and says that she often is brought to tears from pain that progresses just a couple hours into her shift. She also notes that there seems to be a lump on the medial arch of her foot. The swelling is constant and does not subside with elevation or inactivity. Tia feels that she cannot return to work right now and wants to come in for an office visit. She has been scheduled for Saturday 01/20 at 1:15pm. I will compose a letter for Tia's employer, indicating her condition. Please advise if you have any thoughts or suggestions. Andrea Victor 01/15/2012 documented in this encounter Plan of Treatment Upcoming Encounters Date Type Specialty Care Team Description 06/25/2022 Telemedicine Neurology Kj Gloria MD PhD 1 [facility] 2 [place], [place] [phone] (Jayjay anaya) 09/06/2022 Procedure visit Pain Medicine Gabriel Garrett M D [address] [facility] [address] [place] [address] (Jayjay anaya) 09/21/2022 Office Visit Bariatrics Allen Thompson PA-C 111 [facility], [facility], Level [address] [place], [place] [address] (Jayjay anaya) documented as of this encounter Visit Diagnoses Not on filedocumented in this encounter Care Teams Database Marketing Manager Relationship Specialty Start Date End Date Donna Mohr NP PCP - General 10/24/11 09/24/12 [address] [place] [address] documented as of this encounter
--- OUTSIDE RECORDS SUMMARY | 2022-06-15 07:55 | XMS_ITS | Encounter Summary ---
:1975 Author Organization [facility] Address [address] [place] [address] Care Team Providers Name Role Phone Juma Herrera MD Primary Care Provider Unavailable Reason for Visit Reason Comments Neck Pain Encounter Details Date Type Department Care Team Description 10/21/2012 Office Visit [facility] Ana Rosa Mendoza (Primary Spine Program - Moises Kovacs MD Dx) [address] [place] [address] [place] [phone] Social History Tobacco Use Types Packs/Day [...] Progress Notes Ana Rosa Mendoza MD - 10/23/2012 0620 EST [facility] [address] [place] [address] PROGRESS/FOLLOWUP NOTE - 10/21/2012 PROBLEM: 1. 50% back, 50% right leg pain. [...] pain. SUBJECTIVE: The patient returns for routine followup, now 3 weeks postop, overall making appropriateprogress. She feels ready to get back to work. OBJECTIVE: Incision well healed, neurologically intact. DIAGNOSTIC DATA: X-rays, AP and lateral, show her hardware in good position, fusion consolidating. ASSESSMENT: Patient 3 weeks postop, making appropriate progress. PLAN: 1. Return to work as tolerated. 2. Followup scheduled in three to four weeks, lateral C-spine to be obtained prior to being seen. Electronically Signed by Ana Rosa Mendoza MD 10/23/2012 15:08 Ana Rosa Mendoza MD - Ana Rosa Mendoza MD - AN Job ID: SM Doc ID: [id number] Ext Doc ID: [id number] cc: Ana Rosa Abel MD - 10/21/2012 1400 EST This office note has been dictated. ANA ROSA MENDOZA MD documented in this encounter Plan of Treatment Upcoming Encounters Date Type Specialty Care Team Description 06/25/2022 Telemedicine Neurology Ana Rosa Gloria MD PhD 1 [facility], Level [address] [place], [place] [phone] (Jayjay anaya) 09/06/2022 Procedure visit Pain Medicine Catalino Garrett M D [address] [facility] [address] [place] [address] (Jayjay anaya) 09/21/2022 Office Visit Bariatrics Allen Thompson PA-C [address] [facility], [facility], Level [address] [place], [place] [address] (Wo rk) documented as of this encounter Visit Diagnoses Diagnosis Cervicalgia - Primary documented in this encounter Care Teams Medical Director Occupational Health Relationship Specialty Start Date End Date Juma Herrera MD PCP - General 09/25/12 12/07/18 [address] [place] [address] documented as of this encounter
--- OUTSIDE RECORDS SUMMARY | 2022-06-15 07:55 | XMS_ITS | Encounter Summary ---
:1975 Author Organization [facility] Address [address] [place] [address] Care Team Providers Name Role Phone Donna Mohr NP Primary Care Provider Reason for Referral Consult (Routine/Next Available) - Closed Specialty Diagnoses / Procedures Referred By Contact Refer red To Contact Neurology Diagnoses Idiopathic peripheral neuropathy Tarsal tunnel syndrome of right side Catalino Keys MD Replaced by [facility] [place] [address] Referral ID Status Reason Start Date Expiration Date Visits V isits Requested Authorized [id number] Closed Specialty 03/20/2012 1 1 Services Required Question Answer Reason for Request: B/L LE pain with EMG proven neuropathy of unknown etiology. Please evaluate and treat Reason for Visit Reason Comments Follow-up s/p tarsal tunnel release, r ight Encounter Details Date Type Department Care Team Description 03/20/2012 Office Visit [facility] Catalino Keys tunnel syndrome of right side; Foot & Ankle Program - MD Charmaine Idiopathic peripheral neuropathy [place] [address] [address], [facility] [phone] Social History Tobacco Use Types Packs/Day Years [...] Sig Dispensed Refills Start Date End Date indomethacin (INDOCIN SR) Take 1 Cap by mouth 30 Cap 0 0 03/20/2012 04/19/2012 75 mg SR daily for 30 days. capsuleIndications: Tarsal tunnel syndrome of right side, Idiopathic peripheral neuropathy pregabalin (LYRICA) 25 mg Take 1 Cap by mouth 90 Cap 0 0 03/20/2012 04/03/2012 capsuleIndications: Tarsal 3 times daily. tunnel syndrome of right side, Idiopathic peripheral neuropathy documented in this encounter Progress Notes Catalino Keys MD - 03/20/2012 0952 EDT Diagnosis: 1. Tarsal tunnel syndrome of right side (355.5) pregabalin (LYRICA) 25 mg capsule, indomethacin (INDOCIN SR) 75 mg SR capsule, AMB CONSULT NEUROLOGY 2. Idiopathic peripheral neuropathy (356.9) pregabalin (LYRICA) 25 mg capsule, indomethacin (INDOCINSR) 75 mg SR capsule, AMB CONSULT NEUROLOGY Subjective: Tia Arellano Grabiel is being seen today for Follow-up . She was originally sent as a consultation from Dr. Lindsay She is now 5 months post right tarsal tunnel release, now with bilateral foot pain. The patient denies fever, wound drainage, increasing redness, pus, increasing pain, increasing swelling. Post op problems reported: continued pain and swelling in both legs. Current immobilization: none. Pain Vitals: Pain Location: Foot Numeric Pain Level (Scale 1-10): 2 (pain worsens to 10/10 with movement) Pain in another site? : No Pain Quality: Burning Pain Aggravating Factors: movement Outpatient Prescriptions Prior to Visit Medication Sig Dispense Refill ??? ibuprofen (MOTRIN) 200 mg tablet Take 600 mg by mouth every 6 hours. ??? methylphenidate (RITALIN SR; METADATE ER; METHYLIN ER) 20 mg SR tablet Take 20 mg by mouth 3 times daily. Takes 20 mg every morning, 20 mg every afternoon, 10 mg every evening. ??? gabapentin (NEURONTIN) 100 mg capsule Take 300 mg by mouth 3 times daily. ??? ACETAMINOPHEN (TYLENOL ORAL) Take 650 mg by mouth as needed. ??? topiramate (TOPAMAX) 100 mg tablet Take 200 mg by mouth 2 times daily. ??? duloxetine (CYMBALTA) 30 mg capsule Take 90 mg by mouth daily. Allergies Allergen Reactions ??? Bee Sting (Hymenoptera Allergenic Extract) ??? Codeine Objective: General : alert, no distress Gait: Antalgic. Neurovascular: decreased right DPN and MPN Incision: healing well, no significant drainage, no dehiscence, no significant erythema Tenderness: right: moderate over the tarsal tunnel release incision Swelling: bilateral: Moderate below both knees Imaging: none EMG: shows evidence of bilateral peripheral neuropathy. Assessment: Status post right tarsal tunnel release, now with bilateral foot pain, secondary to peripheral neuropathy. Her PCP is checking on her nutritional numbers, and I think she would benefit from an evaluation by a neurologist. In the meantime, we'll change her to Lyrica (the Neurontin wasn't helping), and start her on Indocin (which her PCP apparently intended to do earlier). Plan: 1. Tarsal tunnel syndrome of right side (355.5) pregabalin (LYRICA) 25 mg capsule, indomethacin (INDOCIN SR) 75 mg SR capsule, AMB CONSULT NEUROLOGY 2. Idiopathic peripheral neuropathy (356.9) pregabalin (LYRICA) 25 mg capsule, indomethacin (INDOCINSR) 75 mg SR capsule, AMB CONSULT NEUROLOGY Other Orders Placed This Visit Procedures ??? Ambulatory Consult Neurology Immobilization: none Activities: Activity as tolerated Medications: as above Imaging at next visit::none Follow up: Return for follow up with Neurology for peripheral neuropathy. Cc: Referring Provider - Dr. Lindsay PCP - DONNA MOHR documented in this encounter Plan of Treatment Upcoming Encounters Date Type Specialty Care Team Description 06/25/2022 Telemedicine Neurology Kj Gloria MD PhD 1 [facility] Level [address] [place], [place] [address] (Wo rk) 09/06/2022 Procedure visit Pain Medicine Catalino Garrett M D [address] [facility] [address] [place] [phone] (Wo rk) 09/21/2022 Office Visit Bariatrics Allen Thompson, ELISABETH [address] [facility], [facility], Level [address] [place], [place] [address] (Wo rk) Scheduled Referrals Name Type Priority Associated Diagnoses Order S chedule AMB CONSULT Outpatient Referral Routine Idiopathic Ordered: NEUROLOGY peripheral 03/20/2012 neuropathy Tarsal tunnel syndrome of right side documented as of this encounter Visit Diagnoses Diagnosis Tarsal tunnel syndrome of right side Tarsal tunnel syndrome Idiopathic peripheral neuropathy Unspecified hereditary and idiopathic pe ripheral neuropathy documented in this encounter Discontinued Medications Medication Sig Discontinue Reason Start Date End Date gabapentin (NEURONTIN) Take 300 mg by Therapy completed 03/20/2012 100 mg capsule mouth 3 times daily. documented as of this encounter Care Teams Electrician Control Equipment Relationship Specialty Start Date End Date Donna Mohr NP PCP - General 10/24/11 09/24/12 [address] [place] [address] documented as of this encounter
--- OUTSIDE RECORDS SUMMARY | 2022-06-15 07:55 | XMS_ITS | Encounter Summary ---
:1975 Author Organization [facility] Address [address] [place] [address] Care Team Providers Name Role Phone LailajordynDonna barnes GIULIA Primary Care Provider Encounter Details Date Type Department Care Team Description 04/07/2012 Abstract [facility] Starr Hart PA-C [address] [place], [place] [address] Social History Tobacco Use [...] Telemedicine Neurology Kj Gloria MD PhD [address] [phone] (Jayjay anaya) 09/06/2022 Procedure visit Pain Medicine Catalino Garrett M D [address] [place] [address] [address] [place] [address] (Jayjay anaya) 09/21/2022 Office Visit Bariatrics Allen Thompson PA-C 111 [facility], [facility] 5 [place], [place] [phone] (Wo rk) documented as of this encounter Visit Diagnoses Not on filedocumented in this encounter Care Teams Computer Applications Engineer Relationship Specialty Start Date End Date Donna Mohr, GIULIA PCP - General 10/24/11 09/24/12 [address] [facility] [place] [address] documented as of this encounter
--- OUTSIDE RECORDS SUMMARY | 2022-06-15 07:55 | XMS_ITS | Encounter Summary ---
:1975 Author Organization [facility] Address [address] [place] [address] Care Team Providers Name Role Phone LailajordynjonathaneverardoDonna GIULIA Primary Care Provider Encounter Details Date Type Department Care Team Description 05/02/2012 Results Only Imaging [facility] Valente Hart, Spine Program - Moises ndiaye PA-C [address] [place] [address] [address] [place], [place] [address] Social History Tobacco Use [...] Telemedicine Neurology Kj Gloria MD PhD 1 [facility] 2 [place], [place] [address] (Jayjay anaya) 09/06/2022 Procedure visit Pain Medicine Catalino Garrett M D [address] [facility] [address] [place] [address] (Wo héctor) 09/21/2022 Office Visit Bariatrics Allen Thompson, ELISABETH [address] [place] [address] [facility], [facility], Level [address] [place], [place] [phone] (Wo rk) Pending Results Name Type Priority Associated Diagnoses Date/Ti me OUTSIDE CD - MRI NEURO Imaging 05/02 11:49 EDT OUTSIDE CD - MRI NEURO Imaging 05/02 11:49 EDT OUTSIDE CD - MRI NEURO Imaging 05/02 12:03 EDT documented as of this encounter Visit Diagnoses Not on filedocumented in this encounter Care Teams Battery Container Tester Aluminum Relationship Specialty Start Date End Date Donna Mohr, GIULIA PCP - General 10/24/11 09/24/12 [address] [facility] [place] [address] documented as of this encounter
--- OUTSIDE RECORDS SUMMARY | 2022-06-15 07:55 | XMS_ITS | Encounter Summary ---
:[address] [facility] Address [address] [place] [address] Care Team Providers Name Role Phone Donna Mohr NP Primary Care Provider Reason for Referral Consult (Routine/Next Available) - Closed Specialty Diagnoses / Procedures Referred By Contact Refer red To Contact Diagnoses Lumbar radiculopathy Tarsal tunnel syndrome of right side Catalino Keys MD Zweber, Thomas J, MD [address] [place] [phone] [place] [address] Phone: Fax: Referral ID Status Reason Start Date Expiration Date Visits V isits Requested Authorized [id number] Closed Specialty 02/11/2012 1 1 Services Required Question Answer Reason for Request: Dr Barraza - EMG/NCV bilatera l LE's. Evaluate for neuritis causing bilateral burning foot pain. Patient has history of prior back surgeries. Reason for Visit Reason Comments Follow-up right foot Encounter Details Date Type Department Care Team Description 02/11/2012 Office Visit [facility] Catalino Keys radiculopathy; Foot & Ankle Program - MD Charmaine Tarsal tunnel syndrome of right side [facility] [address] [facility] [address] [phone] Social History Tobacco Use Types Packs/Day Years [...] as of this encounter Progress Notes Catalino Keys MD - 02/11/2012 6766 EDT Diagnosis: 1. Lumbar radiculopathy (724.4) AMB CONSULT PHYSIATRY 2. Tarsal tunnel syndrome of right side (355.5) AMB CONSULT PHYSIATRY Subjective: Tia Spain is being seen today for Follow-up . She was originally sent as a consultation from Dr. Mohr Ms Spain comes in today for followup of both of her feet. She is a little more than 3 months out from right tarsal tunnel release and 3 weeks ago was seen by us for bilateral foot pain for which she was put into bilateral walking boots. She reports that in the walking boots, she feels somewhat better but essentially her pain is unchanged. The pain she describes is a burning kind of pain across the mid foot dorsally as well as plantarly in both feet, although worse on the right than on the left. It does seem to get worse with activity and with swelling. Pain Vitals: Pain Location: Other (comment) (ankle and foot) Numeric Pain Level (Scale 1-10): 5 (pain reaches 5/10 after 4 hr work shift) Pain in another site? : No Pain Quality: Sharp;Shooting;Burning Pain Aggravating Factors: movement Outpatient Prescriptions Prior to Visit Medication Sig Dispense Refill ??? ibuprofen (MOTRIN) 200 mg tablet Take 600 mg by mouth every 6 hours. ??? gabapentin (NEURONTIN) 100 mg capsule Take 300 mg by mouth 3 times daily. ??? methylphenidate (RITALIN SR; METADATE ER; METHYLIN ER) 20 mg SR tablet Take 20 mg by mouth 3 times daily. Takes 20 mg every morning, 20 mg every afternoon, 10 mg every evening. ??? ACETAMINOPHEN (TYLENOL ORAL) Take 650 mg by mouth as needed. ??? topiramate (TOPAMAX) 100 mg tablet Take 200 mg by mouth 2 times daily. ??? duloxetine (CYMBALTA) 30 mg capsule Take 90 mg by mouth daily. Allergies Allergen Reactions ??? Codeine Objective: General : alert, no distress Gait: in bilateral walking boots. Neurovascular: right MPN dyseathesias (decreased from before) and in the DPN Tenderness: bilateral: diffuse tenderness across the midfoot Swelling: bilateral: moderate Imaging: none Assessment: At this point, it is not clear to me the etiology of Ms Spain's symptomatology. However, she is status post 2 back surgeries and has on a previous EMG, an L5 radiculopathy. I am concerned that she has some sort of spinal etiology of her pain since it does not seem to conform to peripheral nerve distribution nor correspond to any underlying musculoskeletal abnormality. Therefore, I have asked that sheget an EMG of both lower extremities by Dr Barraza and we will see her after this has been completed. Plan: 1. Lumbar radiculopathy (724.4) AMB CONSULT PHYSIATRY 2. Tarsal tunnel syndrome of right side (355.5) AMB CONSULT PHYSIATRY Other Orders Placed This Visit Procedures ??? Ambulatory Consult Physiatry Immobilization: walking boot Activities: Activity as tolerated Medications: none Imaging at next visit::none Follow up: Return after appointment with Dr. Barraza. Cc: Referring Provider - Dr. Mohr PCP - DONNA MOHR documented in this encounter Plan of Treatment Upcoming Encounters Date Type Specialty Care Team Description 06/25/2022 Telemedicine Neurology Kj Gloria MD PhD 1 [facility], Level [address] [place], [place] [address] (Jayjay anaya) 09/06/2022 Procedure visit Pain Medicine Catalino Garrett M D [address] [facility] [address] [place] [address] (Jayjay anaya) 09/21/2022 Office Visit BariatricAllen Boyd PA-C [address] [facility], [facility], [address] [place], [place] [address] (Wo rk) Scheduled Referrals Name Type Priority Associated Diagnoses Order S chedule AMB CONSULT Outpatient Referral Routine Lumbar radic ulopathy Ordered: PHYSIATRY Tarsal tunnel 02/11/2012 syndrome of right side documented as of this encounter Visit Diagnoses Diagnosis Lumbar radiculopathy Thoracic or lumbosacral neuritis or radi culitis, unspecified Tarsal tunnel syndrome of right side Tarsal tunnel syndrome documented in this encounter Care Teams Corporate Recruiter Relationship Specialty Start Date End Date Donna Mohr NP PCP - General 10/24/11 09/24/12 [place] [address] documented as of this encounter
--- OUTSIDE RECORDS SUMMARY | 2022-06-15 07:55 | XMS_ITS | Encounter Summary ---
:[address] [facility] Address [address] [place] [address] Care Team Providers Name Role Phone Donna Mohr GIULIA Primary Care Provider Encounter Details Date Type Department Care Team Description 01/21/2012 Results Only Imaging [facility] Foot Catalino Keys, & Ankle Program - Scout [address] [facility] [address] [place], [place] [address] [place] [address] (Jayjay anaya) Social History Tobacco Use [...] PhD 1 [facility], [address] [place], [place] [address] (Wo rk) 09/06/2022 Procedure visit Pain Medicine Catalino Garrett M D [address] [facility] [address] [place] [address] (Jayjay rk) 09/21/2022 Office Visit Bariatrics Allen Thompson PA-C [address] [place] [address] [facility], [facility], [address] [place] [address] (Wo rk) documented as of this encounter Procedures Procedure Name Priority Date/Time Associated Diagnosis Comme nts FOOT 3 OR MORE 01/21/2012 14:13 Results f or this VIEWS EDT procedure are i n the results section. documented in this encounter Results FOOT 3 OR MORE VIEWS (01/21/2012 14:13 EDT) Anatomical Region Laterality Modality Other Specimen Narrative [facility] - 01/01 15:26 EDT FOOT 3 OR MORE VIEWS ??January 21, 2012 02:13:00 PM Signs and Symptoms: ??729.5-PAIN IN LIMB -ICD-9-CM assess for midfoot DJD Comparison: 06/18/2011 Findings: Three weight-bearing views of both the l eft and right foot were obtained. On the right no acute fracture is identi fied. Alignment is anatomic. There are very mild degenerative changes at the ankle, posterior subtalar joint, Chopart and Lisfranc sophia nts and to an even lesser extent at the interphalangeal joints. Th ere is enthesopathic spurring at the calcaneus at the insertion of the Achilles tendon and plantar aponeurosis. There is a bipartite tibial sesamoid bone at the hallucal sesamoidal complex. This is unc hanged compared to comparison radiograph. There is an os trigonum. The soft tissues are unremarkable. On the left as on the right there are mi ld degenerative changes seen throughout the ankle and foot. Alignment is anatomic. There is enthesopathic spurring at the calcaneus at the insertion of the Achilles tendon and plantar aponeurosis. This is less pronounced when compared to the right. There is an os tr igonum. Soft tissues are normal. Impression: Mild degenerative and enthesopathic coy ges at the foot as above. No fracture. Normal alignment. Procedure Note 01/22/2012 FOOT 3 OR MORE VIEWS January 21, 2012 02:13: 00 PM Signs and Symptoms: 729.5-PAIN IN LIMB-I CD-9-CM assess for midfoot DJD Comparison: 06/18/2011 Findings: Three weight-bearing views of both the l eft and right foot were obtained. On the right no acute fracture is identi fied. Alignment is anatomic. There are very mild degenerative changes at the ankle, posterior subtalar joint, Chopart and Lisfranc sophia nts and to an even lesser extent at the interphalangeal joints. Th ere is enthesopathic spurring at the calcaneus at the insertion of the Achilles tendon and plantar aponeurosis. There is a bipartite tibial sesamoid bone at the hallucal sesamoidal complex. This is unc hanged compared to comparison radiograph. There is an os trigonum. The soft tissues are unremarkable. On the left as on the right there are mi ld degenerative changes seen throughout the ankle and foot. Alignment is anatomic. There is enthesopathic spurring at the calcaneus at the insertion of the Achilles tendon and plantar aponeurosis. This is less pronounced when compared to the right. There is an os tr igonum. Soft tissues are normal. Impression: Mild degenerative and enthesopathic coy ges at the foot as above. No fracture. Normal alignment. Performing Organization Address City/State/ZIP Code Phon e Number [facility] documented in this encounter Visit Diagnoses Not on filedocumented in this encounter Care Teams Vp Medical Relationship Specialty Start Date End Date Donna Mohr NP PCP - General 10/24/11 09/24/12 [place] [address] documented as of this encounter
--- OUTSIDE RECORDS SUMMARY | 2022-06-15 07:55 | XMS_ITS | Encounter Summary ---
:1975 Author Organization [facility] Address [address] [place] [address] Care Team Providers Name Role Phone Onur Donna GIULIA Primary Care Provider Reason for Visit Reason Comments Follow-up s/p right tarsal tunnel rele ase 10/31/11. Pain is at its worst when standing, improves slightly when walking (burning)/ twisted ankle in first week after surgery Encounter Details Date Type Department Care Team Description 12/17/2011 Office Visit [facility] Catalino Keys radiculopathy; Foot & Ankle Program - DMD Tarsal tunnel syndrome of right side [address] [place] [facility] [address] [phone] Social History Tobacco Use Types Packs/Day Years [...] Sig Dispensed Refills Start Date End Date ibuprofen (MOTRIN) 600 mg Take 1 Tab by mouth 90 Tab 3 0 12/17/2011 01/16/2012 tabletIndications: Lumbar 3 times daily for radiculopathy, Tarsal 30 days. tunnel syndrome of right side documented in this encounter Progress Notes Catalino Keys MD - 12/17/2011 0827 EDT Diagnosis: 1. Lumbar radiculopathy (724.4) ibuprofen (MOTRIN) 600 mg tablet 2. Tarsal tunnel syndrome of right side (355.5) ibuprofen (MOTRIN) 600 mg tablet Subjective: Tia Spain is being seen today for Follow-up . She was originally sent as a consultation from Dr. Lindsay She is now 6 weeks post right tarsal tunnel release. The patient denies fever, wound drainage, increasing redness, pus, increasing pain, increasing swelling. Post op problems reported: Swelling and burning pain with prolonged standing. Current immobilization: walking boot. Pain Vitals: Pain Location: Foot Numeric Pain Level (Scale 1-10): 5 (pain worsens to 10/10 at times when standing) Pain in another site? : No Pain Quality: Burning;Constant (incision tender and soreness in heel) Pain Duration: Continuous Pain Aggravating Factors: movement Outpatient Prescriptions Prior to Visit Medication Sig Dispense Refill ??? hydrocodone-acetaminophen (LORTAB) 7.5-500 mg per tablet Take 1 Tab by mouth every 4 hours as needed for Pain. 60 Tab 0 ??? oxycodone (ROXICODONE) 5 mg immediate release [...] General : alert, no distress Gait: in walking boot. Neurovascular: decreased right L5 Incision: healing well, no significant drainage, no dehiscence, no significant erythema Tenderness: right: mild Swelling: right: moderate ROM: normal ankle/hindfoot Imaging: none Assessment: Status post right tarsal tunnel release. Doing well postoperatively. Plan: 1. Lumbar radiculopathy (724.4) ibuprofen (MOTRIN) 600 mg tablet 2. Tarsal tunnel syndrome of right side (355.5) ibuprofen (MOTRIN) 600 mg tablet No orders of the defined types were placed in this encounter. Immobilization: none Activities: Activity as tolerated Medications: prescription NSAID's including ibuprofen (Motrin) Imaging at next visit::none Follow up: Return in about 3 months (around 03/17/2012). Cc: Referring Provider - Dr. Lindsay PCP - Donna Mohr documented in this encounter Plan of Treatment Upcoming Encounters Date Type Specialty Care Team Description 06/25/2022 Telemedicine Neurology Kj Gloria MD PhD [address] [facility] [address] [place], [place] [address] (Jayjay anaya) 09/06/2022 Procedure visit Pain Medicine Catalino Garrett M D [address] [facility] [address] [place] [address] (Jayjay anaya) 09/21/2022 Office Visit Bariatrics Allen Thompson PA-C [address] [facility], [address] [place], [place] [address] (Jayjay anaya) documented as of this encounter Visit Diagnoses Diagnosis Lumbar radiculopathy Thoracic or lumbosacral neuritis or radi culitis, unspecified Tarsal tunnel syndrome of right side Tarsal tunnel syndrome documented in this encounter Discontinued Medications Medication Sig Discontinue Reason Start Date End Date oxycodone (ROXICODONE) 5 Take 1-2 Tabs by 10/31/2011 12/17/2011 mg immediate release mouth every 4 hours tablet as needed for Pain. ibuprofen (MOTRIN) 200 600 mg every 6 hours 12/17/2011 mg tablet as needed. documented as of this encounter Care Teams Pneumatic Systems Operator Relationship Specialty Start Date End Date Donna Mohr, GIULIA PCP - General 10/24/11 09/24/12 [place] [address] documented as of this encounter
--- OUTSIDE RECORDS SUMMARY | 2022-06-15 07:55 | XMS_ITS | Encounter Summary ---
:1975 Author Organization [facility] Address [address] [place] [address] Care Team Providers Name Role Phone Donna Mohr NP Primary Care Provider Encounter Details Date Type Department Care Team Description 11/26/2011 Orders Only [facility] Catalino Keys tunnel syndrome Foot & Ankle Program - D, of right side (Primary [address]) [address] [place] [facility] [address] [facility] [phone] Social History Tobacco Use Types Packs/Day Years [...] documented as of this encounter Progress Notes Andrea Victor - 11/26/2011 1737 EDT Tia reports decreased swelling s/p surgery and she is finding her walking boot to be too large. She requests a prescription for a new, smaller walking boot. Andrea Victor 11/26/2011 documented in this encounter Plan of Treatment Upcoming Encounters Date Type Specialty Care Team Description 06/25/2022 Telemedicine Neurology Kj Gloria MD PhD 1 [facility], [address] [place], [place] [address] (Wo rk) 09/06/2022 Procedure visit Pain Medicine Catalino Garrett M D [facility] [address] [place] [address] (Wo rk) 09/21/2022 Office Visit Bariatrics Allen Thompson PA-C [address] [place] [address] [facility], [facility], [address] [place], [place] [address] (Wo rk) documented as of this encounter Visit Diagnoses Diagnosis Tarsal tunnel syndrome of right side - P rimary Tarsal tunnel syndrome documented in this encounter Orders Equipment Count Last Ordered Date First Ordered Date GENERIC DME ORDER 1 11/27/2011 documented in this encounter Care Teams Casino Cage Supervisor Relationship Specialty Start Date End Date Donna Mohr NP PCP - General 10/24/11 09/24/12 [place] [address] documented as of this encounter
--- OUTSIDE RECORDS SUMMARY | 2022-06-15 07:55 | XMS_ITS | Encounter Summary ---
:1975 Author Organization [facility] Address [address] [place] [address] Care Team Providers Name Role Phone Onur Donna PLATT Primary Care Provider Reason for Visit Reason Comments Leg Pain bilateral foot/ankle pain Encounter Details Date Type Department Care Team Description 03/06/2012 Office Visit [facility] Khris Barraza Lumbar radiculopathy (Primary Dx); Hand & Upper JMD Multifactorial peripheral neuropathy; Extremity Program - [address] Tarsa l tunnel syndrome of right side [address] [facility] [address] [id number] Social History Tobacco Use Types Packs/Day Years [...] - Inhaled Oxygen Concentration - - Weight 132.5 kg (292 lb) 03/06/2012 1446 EDT Height 172.7 cm (5' 8) 03/06/2012 1446 EDT Body Mass Index 44.4 03/06/2012 1446 EDT documented in this encounter Progress Notes Khris Barraza MD - 03/06/2012 1527 EDT This office note has been dictated. documented in this encounter Procedure Notes Khris Barraza MD - 03/07/2012 0837 EDT [facility] ELECTRODIAGNOSTIC MEDICINE CONSULTATION SERVICE DATE: 03/06/2012 ATTENDING PHYSICIAN: Khris Barraza MD REQUESTING PHYSICIAN: Catalino Keys MD PRIMARY CARE PHYSICIAN: Donna Mohr NP HISTORY: The patient is a complicated young female who is here today at the request of Dr Catalino Keys. She has had previous electrodiagnostics done by Dr Raysa Levine. She also has had 2 surgeries on her lumbar spine at the lumbar 5 and S1 level and is quite complicated from a pain perspective. Daniel has been seeing her for bilateral plantar fasciitis, bilateral foot pain and right tarsal tunnel syndrome and she underwent surgery on the tarsal tunnel 10/31/2011. Her most recent reevaluation by Dr Keys from 02/12/12 is reviewed. The patient is here today with a friend and has ongoing, quite significant complaints of bilateral foot pain, bilateral plantar foot burning, difficulty walking, edema in her lower extremities, primarily in the calves, ankles and fe et. She is here today for my evaluation and testing. For past medical history, problem list and medication list, I refer to the [facility] intake. FAMILY HISTORY: Noncontributory. REVIEW OF SYSTEMS: Please see intake format. This is reviewed with the patient and signed. SOCIAL HISTORY: She is no longer a smoker and uses very little alcohol. OBJECTIVE: She is 5 feet 8, 292 pounds. She walks with a bilateral antalgic gait, somewhat wide-based. Visual inspection shows substantial edema from her knees down into her ankles, more so than into thefeet. The edema is 1+ pitting. She has a surgical scar overlying her right tarsal tunnel. There is swelling both superior and inferior to the actual scar itself and she has a Tinel's sign along the course of the nerve down into the plantar foot. Her pulses are intact at the dorsalis pedis, posterior tibialis bilaterally. Knee jerks are present. Ankle jerks absent bilaterally. She seems to have mild dysesthesia in the right and left plantar feet, less so in the dorsal feet and somewhat of a stocking change as I send up into her calves. In order to investigate the status of her proximal and peripheral nerves and evaluate for tarsal tunnel peripheral neuropathy and lumbar radiculopathy, the plan is to perform extensive electrodiagnostics. NERVE CONDUCTION STUDY: Nerve Distal Latency Evoked Nerve Conduction Comments (NI<3.6) Response Velocity Amplitude Left peroneal sensory 7.1 msec 7 mV Left tibial motor 6.7 msec 1.5 mV F-wave 49.2 Left peroneal motor 6.0 msec 3.0 mV F-wave 49.0 Right tibial motor 8.2 msec 1.8 mV F-wave 49.9 Right peroneal motor 6.3 msec 1.0 mV 46 mps F-wave 49.8 Right peroneal sensory 5.9 msec 6 mV Right sural sensory 8.4 msec 3.0 mV EMG REPORT: A monopolar exploring electrode was used with standard technique. Muscles examined included the right and left abductor hallucis brevis, abductor digiti quinti, extensor hallucis longus, anterior tibialis, peroneus longus, medial and lateral gastrocnemius, soleus, flexor hallucis longus, quadriceps, adductor group, tensor fascia shahid. FINDINGS: There was 1 to 2+ increased insertional activity seen in the bilateral plantar foot musculature. There was 1+ low amplitude positive sharp wave and fibrillation potentials also seen in the right medial and lateral gastrocnemius, soleus and into the flexor hallucis. All other muscles tested normally. IMPRESSION: This is a very complicated situation. 1. The patient has mild remnant right S1 radiculopathy. It looks remote and I do not think that thisis active or a major cause of her pain. 2. She likely is developing an early peripheral neuropathy. Please see below for discussion. 3. She has not had a resolution of her right tarsal tunnel syndrome and continues to show a delay ofthe tibial nerve in that location. However, her left tibial nerve is substantially delayed as are bilateral peroneal motor and three sensory nerves, again, consistent with peripheral neuropathy. My impression is that, between the peripheral neuropathy and also what appears to be developing lymphedema,this is a very hostile environment for any nerve regrowth or recovery. The patient should have some laboratory testing completed both for lymphedema and to rule out metabolic causes of her peripheral neuropathy. With respect to the peripheral neuropathy, this includes thehemoglobin A1c, vitamin B12, B1, thiamine, etc. With respect to the lymphedema, her thyroid function should be checked as well as albumin, prealbumin, total protein. Despite her morbid obesity, she may be protein malnourished which can contribute tolymphedema, although she states that she eats meat essentially every day, at least to some extent. As mentioned above, this is clearly a complex situation. I had a lengthy discussion with the patientand her friend and all of their questions were answered. Electronically Signed by Khris Barraza MD 03/10/2012 14:01 Khris Barraza MD - Khris Barraza MD A - WP Job ID: SM Doc ID: [id number] Ext Doc ID: [id number] cc: Donna Mohr NP documented in this encounter Plan of Treatment Upcoming Encounters Date Type Specialty Care Team Description 06/25/2022 Telemedicine Neurology Kj Gloria MD PhD 1 [facility] 2 [place], [place] [address] (Jayjay anaya) 09/06/2022 Procedure visit Pain Medicine Catalino Garrett M D [address] [facility] [address] [place] [address] (Jayjay anaya) 09/21/2022 Office Visit Bariatrics Allen Thompson PA-C 111 [facility], [address] [place], [place] [address] (Jayjay anaya) documented as of this encounter Visit Diagnoses Diagnosis Lumbar radiculopathy - Primary Thoracic or lumbosacral neuritis or radi culitis, unspecified Multifactorial peripheral neuropathy Unspecified hereditary and idiopathic pe ripheral neuropathy Tarsal tunnel syndrome of right side Tarsal tunnel syndrome documented in this encounter Care Teams Manager Of Revenue Relationship Specialty Start Date End Date Donna Mohr NP PCP - General 10/24/11 09/24/12 [place] [address] documented as of this encounter
--- OUTSIDE RECORDS SUMMARY | 2022-06-15 07:55 | XMS_ITS | Encounter Summary ---
:1975 Author Organization [facility] Address [address] [place] [address] Care Team Providers Name Role Phone RosibeljonathanDonna mcgee NP Primary Care Provider Reason for Visit Reason Onset Date Comments Appointment Related 04/02/2012 Encounter Details Date Type Department Care Team Description 04/02/2012 Telephone [facility] Foot Catalino Keys, Appointment Related & Ankle Program - Ti natalie MEHTA [address] [place], [place] [address] [place] [address] [phone] (Wo rk) Social History Tobacco Use [...] this encounter Miscellaneous Notes Telephone Encounter - Eleonora Rolle - 04/02/2012 1507 EDT Called and L/M for Tia re: her upcoming Neurology consult. Scheduled for 07/23/12 at 1 pm - pierce Ríos 2/neurology. Eleonora Rolle 8.1.12 documented in this encounter Plan of Treatment Upcoming Encounters Date Type Specialty Care Team Description 06/25/2022 Telemedicine Neurology Kj Gloria MD PhD 1 [facility], Level 2 [place], [place] [phone] (Wo rk) 09/06/2022 Procedure visit Pain Medicine Catalino Garrett M D [address] [facility] [address] [place] [address] (Wo rk) 09/21/2022 Office Visit Bariatrics Allen Thompson PA-C 111 [facility], [facility], Level 5 [place], [place] [address] (Wo rk) documented as of this encounter Visit Diagnoses Not on filedocumented in this encounter Care Teams Service Desk Team Lead Relationship Specialty Start Date End Date Donna Mohr NP PCP - General 10/24/11 09/24/12 [place] [address] documented as of this encounter
--- OUTSIDE RECORDS SUMMARY | 2022-06-15 07:55 | XMS_ITS | Encounter Summary ---
:1975 Author Organization [facility] Address [address] [place] [address] Care Team Providers Name Role Phone Donna Mohr NP Primary Care Provider Encounter Details Date Type Department Care Team Description 07/23/2012 Phlebotomy Only [facility] Engine Mechanic, Numbn ess and tingling; - [facility] Outpatient Pain, arm, right [address] [place], [place] [id number] Social History Tobacco Use Types Packs/Day Years [...] Telemedicine Neurology Kj Gloria MD PhD 1 [facility] Level 2 [place], [place] [phone] (Jayjay anaya) 09/06/2022 Procedure visit Pain Medicine Catalino Garrett M D [address] [place] [address] [address] [place] [address] (Jayjay anaya) 09/21/2022 Office Visit Bariatrics Allen Thompson PA-C 111 [facility], [facility], Level 5 [place], [place] [address] (Wo rk) documented as of this encounter Procedures Procedure Name Priority Date/Time Associated Comments Diagnosis THIAMIN (VITAMIN B1), Routine 07/23/2012 14:19 Numbness and Re sults for this WB EST tingling procedure are i n the results section. DIFFERENTIAL Routine 07/23/2012 14:19 Results for this EST procedure are i n the results section. SED RATE Routine 07/23/2012 14:19 Numbness and Results for this EST tingling procedure are i n the results section. COMPLETE BLOOD COUNT Routine 07/23/2012 14:19 Res ults for this EST procedure are i n the results section. COMPLETE BLOOD COUNT Routine 07/23/2012 14:19 Numbness and AND DIFFERENTIAL EST tingling URINE MONOCLONAL Routine 07/23/2012 14:19 Numbness and Results for this PROTEIN STUDY (UPEP EST tingling procedur e are in WITH IMMUNOTYPING) the resul ts section. SPEP WITH IMMUNOTYPING Routine 07/23/2012 14:19 Numbness and R esults for this EST tingling procedure are i n the results section. C REACTIVE PROTEIN Routine 07/23/2012 14:19 Numbness and Resul ts for this EST tingling procedure are i n the results section. T3, TOTAL Routine 07/23/2012 14:19 Numbness and Results for this EST tingling procedure are i n the results section. TSH Routine 07/23/2012 14:19 Numbness and Results for this EST tingling procedure are i n the results section. T4 FREE Routine 07/23/2012 14:19 Numbness and Results for this EST tingling procedure are i n the results section. PYRIDOXAL 5 PHOSPHATE Routine 07/23/2012 14:19 Numbness and Re sults for this (PLP), PLASMA EST tingling procedure are in the results section. HEMOGLOBIN A1C Routine 07/23/2012 14:19 Numbness and Results f or this EST tingling procedure are in Pain, arm, right the results section. FOLATE Routine 07/23/2012 14:19 Numbness and Results for this EST tingling procedure are i n the results section. VITAMIN B12 Routine 07/23/2012 14:19 Numbness and Results for this EST tingling procedure are i n the results section. COMPREHENSIVE Routine 07/23/2012 14:19 Numbness and Results fo r this METABOLIC PANEL (CMP) EST tingling proced ure are in the results section. documented in this encounter Results (ABNORMAL) DIFFERENTIAL (07/23/2012 14:19 EST) Pathologist Sig nature Neutrophils 59.5 45.5 - 79.7 % [facility] Lymphocytes 28.8 15.0 - 46.8 % [facility] Monocytes 7.7 1.8 - 12.0 % [facility] Eosinophils 2.3 0.6 - 6.9 % [facility] Basophils 1.7 (H) 0.2 - 1.4 % [facility] ABS Neutrophils 4.24 2.20 - 8.85 K/cmm [facility] ABS Lymphs 2.05 1.09 - 3.30 K/cmm [facility] ABS Monocytes 0.55 0.1 - 0.8 K/cmm [facility] ABS Eosinophils 0.17 0.03 - 0.61 K/cmm [facility] ABS Basophils 0.12 (H) 0.01 - 0.11 K/cmm [facility] Type of Diff: Automated [facility] Specimen Performing Organization Address City/State/ZIP Code Phon e Number [facility] [address] [place] [address] SERVICES [facility] [address] [place] [address] HEMAGRAM (07/23/2012 14:19 EST) Pathologist Sig nature WBC 7.12 4.0 - 12.4 K/cmm [facility] RBC 4.50 3.86 - 5.04 M/cmm [facility] Hemoglobin 13.8 11.6 - 15.2 gm/dl [facility] HCT 39.8 34.9 - 44.4 % [facility] MCV 88 81 - 98 fl [facility] MCH 30.6 26.7 - 33.3 pg [facility] MCHC 34.6 32.1 - 35.9 gm/dl [facility] PLT 270 141 - 320 K/cmm [facility] RDW-CV 14.0 11.7 - 14.6 % [facility] Specimen Performing Organization Address [facility] Phon e Number [facility] [address] [place] [address] SERVICES [facility] [address] [place] [address] T3, TOTAL (07/23/2012 14:19 EST) Pathologist Sig nature T3, Total 112 60 - 181 ng/dL [facility] Specimen Blood specimen (specimen) Performing Organization Address [facility] Phon e Number [facility] [address] [place] [address] SERVICES [facility] [address] [place] [address] TSH (07/23/2012 14:19 EST) Pathologist Sig nature TSH 0.93 0.35 - 5.00 uIU/ml [facility] Specimen Blood specimen (specimen) Performing Organization Address [facility] Phon e Number [facility] [address] [place] [address] SERVICES [facility] [address] [place] [address] T4 FREE (07/23/2012 14:19 EST) Pathologist Sig nature Free T4 1.0 0.8 - 1.8 ng/dL [facility] Specimen Blood specimen (specimen) Performing Organization Address [facility] Phon e Number [facility] [address] [place] [address] SERVICES [facility] [address] [place] [address] HEMOGLOBIN A1C (07/23/2012 14:19 EST) Hemoglobin A1C 5.2 % [facility] Comment: Reference Range: <5.7% Normal 5.7-6.4% Increased risk for diabetes =>6.5% Diagnostic for diabetes (if confirmed) The A1c goal for non adults in general is <7%. The A1c goal for selected patients may be significantly lower than 7% if this can be achieved without significant hypoglycemia or other adverse effects of treatment. Est Avg Glucose 103 mg/dl [facility] Comment: eAG represents the A1c result expressed as average glucose in mg/dl. Specimen Blood specimen (specimen) Performing Organization Address City/[facility]/ZIP [facility] Phon e Number [facility] [address] [place] [address] SERVICES [facility] [address] [place] [address] FOLATE (07/23/2012 14:19 EST) Pathologist Sig nature Folate 8.7 ng/mL [facility] Comment: Deficient: ??Less than 3.4 ng/mL Indeterminate: ??3.4-5.4 ng/mL Normal: ??Greater than 5.4 ng/mL Specimen Blood specimen (specimen) Performing Organization Address City/[facility] Phon e Number [facility] [address] [place] [address] SERVICES [facility] [address] [place] [address] MONOCLONAL PROTEIN STUDY, URINE RANDOM (07/23/2012 14:19 [...] Urine (substance) - Urine Performing Organization Address [facility] Phon e Number [facility] [address] [place] [address] SERVICES [facility] [address] [place] [address] IMMUNOFIXATION/SPEP (07/23/2012 14:19 EST) Total Protein 6.9 6.5 - 8.3 RONNA [...] Specimen Blood specimen (specimen) Performing Organization Address [facility] Phon e Number [facility] [address] [place] [address] SERVICES [facility] [address] [place] [address] PYRIDOXAL 5 PHOSPHATE (PLP), PLASMA (07/23/2012 14:19 EST) Pyridoxal 5 7 5 - 50 mcg/L [facility]ate Comment: LAB Performed by: [facility] [email or web address] [place] and, [address], [place] [address], Machine Assembler Supervisor: Yoly Nobles, Ph.D. Specimen Blood specimen (specimen) Performing Organization Address [facility] Phon e Number [facility] [address] [place] [address] SERVICES [facility] [address] [place] [address] THIAMIN (VITAMIN B1), WB (07/23/2012 14:19 EST) Thiamin (Vit B1), 119 70 - 180 [facility] Comment: nmol/L LAB Performed by: [facility] [email or web address] [facility] and, [address] , [place] [address], Machine Assembler Supervisor: Yoly Nobles, Ph.D. Specimen Blood specimen (specimen) Performing Organization Address [facility] Phon e Number [facility] [address] [place] [address] SERVICES [facility] [address] [place] [address] VITAMIN B12 (07/23/2012 14:19 EST) Pathologist Sig nature Vitamin B-12 444 211 - 911 pg/ml [facility] Specimen Blood specimen (specimen) Performing Organization Address [facility]/ZIP [facility] Phon e Number [facility] [address] [place] [address] SERVICES [facility] [address] [place] [address] SED. RATE:WESTERGREN (07/23/2012 14:19 EST) Pathologist Sig nature Sed. Rate Westergren 14 0 - 20 mm/hr [facility] Specimen Blood specimen (specimen) Performing Organization Address City/[facility]/ZIP Code Phon e Number [facility] [address] [place] [address] SERVICES [facility] [address] [place] [address] (ABNORMAL) C-REACTIVE PROTEIN (07/23/2012 14:19 EST) Pathologist Sig nature C-Reactive Protein 1.3 (H) <1.0 mg/dl [facility] Specimen Blood specimen (specimen) Performing Organization Address [facility] Phon e Number [facility] [address] [place] [address] SERVICES [facility] [address] [place] [address] COMPREHENSIVE METABOLIC PANEL (CMP) (07/23/2012 14:19 EST) Pathologist Sig nature Potassium 3.7 3.5 - 5.0 mEq/L [...] Serum 77 70 - 100 mg/dl [facility] Fasting? Unknown [facility] Specimen Blood specimen (specimen) Performing Organization Address [facility]/ZIP [facility] Phon e Number [facility] [address] [place] [address] SERVICES [facility] [address] [place] [address] documented in this encounter Visit Diagnoses Diagnosis Numbness and tingling Disturbance of skin sensation Pain, arm, right Pain in limb documented in this encounter Care Teams Chairman Ceo Relationship Specialty Start Date End Date Donna Mohr NP PCP - General 10/24/11 09/24/12 [place] [address] documented as of this encounter
--- OUTSIDE RECORDS SUMMARY | 2022-06-15 07:55 | XMS_ITS | Encounter Summary ---
:1975 Author Organization [facility] Address [address] [place] [address] Care Team Providers Name Role Phone Donna Mohr NP Primary Care Provider Reason for Referral Radiology Services (Routine/Next Available) - Closed Specialty Diagnoses / Procedures Referred By Contact Refer red To Contact Diagnoses Cervicalgia Kj Child MD Procedures CERVICAL SPINE 4 OR MORE VIEWS [address] [place] [address] Referral ID Status Reason Start Date Expiration Date Visits Requ ested Visits Authorized [id number] Closed 07/31/2012 1 1 Reason for Visit Reason Onset Date Comments Neck Pain 07/31/2012 Encounter Details Date Type Department Care Team Description 07/31/2012 Orders Only [facility] Kj Child (Primary Spine Program - Moises Kovacs MD Dx) [address] [place] [address] [address] Social History Tobacco Use [...] Telemedicine Neurology Kj Gloria MD PhD 1 [facility], Level 2 [place], [place] [phone] (Wo rk) 09/06/2022 Procedure visit Pain Medicine Catalino Garrett M D 62 [facility] [address] [place] [address] (Wo rk) 09/21/2022 Office Visit Bariatrics Allen Thompson PA-C 111 [facility] venue [facility], [facility], Level [address] [place], [place] [address] (Wo rk) documented as of this encounter Procedures Procedure Name Priority Date/Time Associated Diagnosis Comme nts CERVICAL SPINE 4 OR Routine 08/08/2012 10:36 Cervicalgia Resu lts for this MORE VIEWS EST procedure are i n the results section. documented in this encounter Results CERVICAL SPINE 4 OR MORE VIEWS (08/08/2012 10:36 EST) Anatomical Region Laterality Modality Other Specimen Narrative [facility] - 03/2012 11:34 EST Plain film cervical spine History: Neck pain Findings: 4 views. There is no acute fra cture of the cervical spine. There is focal mild reversal of the norm al cervical lordosis from C5-C7. There is loss of normal intervert ebral disc height at C6-C7 with marginal osteophyte formation. The prevertebral soft tissues are normal. The cranial cervical junction is normal. Flexion and extension views show no inst ability. Lung apices are clear. Conclusion: C6-C7 degenerative disc disease. No inst ability. Procedure Note 08/08/2012 Plain film cervical spine History: Neck pain Findings: 4 views. There is no acute fra cture of the cervical spine. There is focal mild reversal of the norm al cervical lordosis from C5-C7. There is loss of normal intervert ebral disc height at C6-C7 with marginal osteophyte formation. The prevertebral soft tissues are normal. The cranial cervical junction is normal. Flexion and extension views show no inst ability. Lung apices are clear. Conclusion: C6-C7 degenerative disc disease. No inst ability. Performing Organization Address City/State/ZIP Code Phon e Number [facility] documented in this encounter Visit Diagnoses Diagnosis Cervicalgia - Primary documented in this encounter Care Teams American History Professor Relationship Specialty Start Date End Date Donna Mohr NP PCP - General 10/24/11 09/24/[address] [place] [address] [place] [address] documented as of this encounter
--- OUTSIDE RECORDS SUMMARY | 2022-06-15 07:55 | XMS_ITS | Encounter Summary ---
:[address] [facility] Address [address] [place] [address] Care Team Providers Name Role Phone Donna Mohr NP Primary Care Provider Reason for Visit Reason Onset Date Comments Other 10/29/2011 Encounter Details Date Type Department Care Team Description 10/29/2011 Telephone [facility] Foot & Kristina Aaron LPN Other Ankle Program - [address] [place], [place] [phone] [place] [address] Social History Tobacco Use Types Packs/Day Years [...] this encounter Miscellaneous Notes Telephone Encounter - Kristina Aaron LPN - 10/29/2011 1122 EST Tia has been instructed via phone as follows: 1. Surgical arrival time 10:30 am 2. Location- [facility] 3. Pre-Anesthetic fasting instructions 4. Medications DOS per instructions from Preoperative nurse 5. Shower or bath using antibacterial soap 6. Call office with any questions ([phone]) documented in this encounter Plan of Treatment Upcoming Encounters Date Type Specialty Care Team Description 06/25/2022 Telemedicine Neurology Kj Gloria MD PhD 1 [facility], Level 2 [place], [place] [phone] (Wo rk) 09/06/2022 Procedure visit Pain Medicine Catalino Garrett M D 62 [facility] [address] [place] [address] (Wo rk) 09/21/2022 Office Visit Bariatrics Allen Thompson, PALizettC [address] [place] A venue [facility], [facility], Level 5 [place], [place] [address] (Wo rk) documented as of this encounter Visit Diagnoses Not on filedocumented in this encounter Care Teams Maritime Guard Relationship Specialty Start Date End Date Donna Mohr NP PCP - General 10/24/11 09/24/12 [place] [address] documented as of this encounter
--- OUTSIDE RECORDS SUMMARY | 2022-06-15 07:55 | XMS_ITS | Encounter Summary ---
:[address] [facility] Address [address] [place] [address] Care Team Providers Name Role Phone LailajordynDonna barnes GIULIA Primary Care Provider Reason for Visit Reason Onset Date Comments Advice Only 01/25/2012 Encounter Details Date Type Department Care Team Description 01/25/2012 Telephone [facility] Rohit & Gabriel Lorenzo MD Advice Only Ankle Program - [facility] [address] [facility] [address] [facility] [place] [phone] (Wo rk) Social History Tobacco [...] Telephone Encounter - Gabriel Keys MD - 01/31/2012 0907 EDT NO. We'll see her as planned. GABRIEL KEYS MD elephone Encounter - Andrea Victor - 01/25/2012 0942 EDT Tia called today with questions about her treatment. She said she is concerned with the level of pain she is having, considering her x-rays appeared normal. She is wondering if an MRI would be appropriate. Andrea Victor 01/25/2012 documented in this encounter Plan of Treatment Upcoming Encounters Date Type Specialty Care Team Description 06/25/2022 Telemedicine Neurology Kj Gloria MD PhD 1 [facility] Level 2 [place], [place] [phone] (Wo rk) 09/06/2022 Procedure visit Pain Medicine Gabriel Garrett M D 62 [facility] [address] [place] [address] (Wo rk) 09/21/2022 Office Visit Bariatrics Allen Thompson, PALizettC 111 [facility], Level [address] [place], [place] [phone] (Wo rk) documented as of this encounter Visit Diagnoses Not on filedocumented in this encounter Care Teams [employer]obile Travel [employer] Counselor Relationship Specialty Start Date End Date Donna Mohr NP PCP - General 10/24/11 09/24/12 [address] [place], [place] [address] documented as of this encounter
--- OUTSIDE RECORDS SUMMARY | 2022-06-15 07:55 | XMS_ITS | Encounter Summary ---
:1975 Author Organization [facility] Address [address] [place] [address] Care Team Providers Name Role Phone Brian Lindsay MD Primary Care Provider Unavailable Reason for Visit Reason Comments Foot Pain right ankle/foot. MRI take y . Encounter Details Date Type Department Care Team Description 08/16/2011 Office Visit [facility] Catalino Keys Os tr igonum; Foot & Ankle Program - DMD Tarsal tunnel syndrome of right side; [address] Foot pain, right [address] [place] [address] [phone] Social History Tobacco Use Types Packs/Day Years [...] Sig Dispensed Refills Start Date End Date gabapentin (NEURONTIN) 300 Take 1 Cap by mouth 90 Cap 3 08/16/2011 09/15/2011 mg capsuleIndications: 3 times daily for Foot pain, right 30 days. 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 Tarsal tunnel syndrome of right side (355.5) Subjective: Hannah Spain is being seen today for Foot Pain . She was originally sent as a consultation from Dr. Keys Ms Spain comes in today for followup of her right tarsal tunnel pain. We saw her for an MRI because of some abnormalities noted on her plain films and the concern that she might have bony exostosis that would have to be addressed during a tarsal tunnel release. Since I last saw her, she has had continued pain to the point where she was almost unable to walk on Saturday. Pain Vitals: Pain Location: Foot (bilateral, right more than left) Bui-Nicole Pain Rating (Scale 0-10): Hurts even more Numeric Pain Level (Scale 1-10): 6 Pain in another site? : No Pain Quality: Sharp Pain Duration: Continuous Pain Aggravating Factors: movement Outpatient Prescriptions Prior to Visit Medication Sig Dispense Refill ??? ACETAMINOPHEN (TYLENOL ORAL) Take by mouth. ??? topiramate (TOPAMAX) 100 mg tablet Take 200 mg by mouth 2 times daily. ??? amlodipine (NORVASC) 2.5 mg tablet Take 2.5 mg by mouth 2 times daily. ??? duloxetine (CYMBALTA) 60 mg capsule Take 60 mg by mouth daily. ??? duloxetine (CYMBALTA) 30 mg capsule Take 30 mg by mouth daily. Objective: General : alert, no distress Gait: Antalgic. Neurovascular: intact Tenderness: right: tarsal tunnel Swelling: right: none Imaging: MRI - right ankle: large os trigonum but no evidence of encroaching bone in the tarsal canal. Assessment: EMG-proven right tarsal tunnel syndrome with consistent clinical signs. We discussed the possibilityof a tarsal tunnel release. Risks and benefits of the surgery were discussed with the patient (including risks of infection, bleeding, nerve damage, healing, and anesthesia), and all questions were answered. She understands and wishes to proceed with the surgery. 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 Tarsal tunnel syndrome of right side (355.5) No orders of the defined types were placed in this encounter. Immobilization: none Medications: continue with the Neurontin Imaging at next visit::none Follow up: Return for surgery. Cc: Referring Provider - Dr. Keys PCP - Brian Lindsay MD documented in this encounter Plan of Treatment Upcoming Encounters Date Type Specialty Care Team Description 06/25/2022 Telemedicine Neurology Kj Gloria MD PhD 1 [facility], Level [address] [place], [place] [phone] (Wo rk) 09/06/2022 Procedure visit Pain Medicine Catalino Garrett M D [address] [facility] [address] [place] [address] (Wo rk) 09/21/2022 Office Visit Bariatrics Allen Thompson PA-C 111 [facility], [facility], [address] [place], [place] [address] (Wo rk) documented as of this encounter Visit Diagnoses Diagnosis 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 pain, right documented as of this encounter Care Teams Seasonal Delivery Driver Relationship Specialty Start Date End Date Brian Lindsay MD PCP - General 04/11/11 10/23/11 documented as of this encounter
--- OUTSIDE RECORDS SUMMARY | 2022-06-15 07:55 | XMS_ITS | Encounter Summary ---
:1975 Author Organization [facility] Address [address] [place] [address] Care Team Providers Name Role Phone Onur Donna GIULIA Primary Care Provider Reason for Referral Consult (Routine/Next Available) - Closed Specialty Diagnoses / Procedures Referred By Contact Refer red To Contact Pain Medicine Diagnoses Neck pain Cervical radiculopathy Starr Hart [facility] ELISABETH Gu[address] [place], [place] [phone] Phone: Fax: Referral ID Status Reason Start Date Expiration Date Visits V isits Requested Authorized [id number] Closed Specialty 05/01/2012 1 1 Services Required Question Answer Reason for Request: C7-T1 TLESI Reason for Visit Reason Comments Neck Pain Arm Pain right Encounter Details Date Type Department Care Team Description 05/01/2012 Office Visit [facility] Starr Hart Neck p ain; Spine Program - S, PAVladimir Cervical rad [place] [address] Social History Tobacco Use Types [...] - - Weight 136.1 kg (300 lb) 05/01/2012 0943 EDT Height 172.7 cm (5' 8) 05/01/2012 0943 EDT Body Mass Index 45.61 05/01/2012 0943 EDT documented in this encounter Ordered Prescriptions Prescription Sig Dispensed Refills Start Date End Date indomethacin (INDOCIN SR) Take 1 Cap by mouth 30 Cap 2 0 05/01/2012 09/22/2012 75 mg SR capsule daily. documented in this encounter Progress Notes Nena Bo - 05/01/2012 1401 EDT Patient is notified in office that she is scheduled for C7-T1 TLESI at [facility] on 06/13/12 to register at 9:15AM and follow up with MARGARITA Hylton 2 weeks after. Patient verbalized understanding. Patient Education Topic: Cervical TLESI Method: Handout and Verbal Taught to: Patient Barriers: None Outcomes: verbalized understanding Signature: Nena Bo 05/01/2012 14:02 Starr Jara PA - 05/01/2012 1010 EDT Tia is a 36-year-old female who returns for followup. She continues to experience neck pain and stiffness through the right paraspinals into the right scapula. The pain continues into the right axilla through the right triceps and into the lateral forearm. She continues to experience numbness but only at the distal aspect of her index finger on the right. Her symptoms have improved slightly, but she is still in a significant amount of discomfort. She has been doing physical therapy focusing on massage for the tense musculature as well as cervical traction. Since starting PT, she has not had any migraines, although we discussed that really these may be more occipital tension headaches. The numb ness in the rest of the index finger and thumb has resolved. She currently rates her pain a 5/10. While she has had some relief, she is still quite uncomfortable. She is status post L5-S1 diskectomy and fusion by Dr Child in 2006. She has had steroid injections in her lower back and in her lower extremities without relief. She has not tried chiropractic manipulation, acupuncture or had any injections in her cervical spine. OBJECTIVE: Cervical MRI without contrast 03/28/2012: C5-6 small central disk herniation which indentsthe anterior thecal sac without significant neural foraminal stenosis. C6-C7, moderate right sized paracentral foraminal disk herniation resulting in moderate right neural foraminal stenosis. ASSESSMENT AND PLAN: A 36-year-old female with continued discogenic myofascial cervicalgia and rightcervical radiculopathy, mainly in a C7 distribution. She states that somehow her indomethacin was decreased. I am not sure who decreased her medication, but she would like to go back to taking 75 mg per day so I have written her a new prescription for this. She is currently taking Lyrica 50 mg 3 timesa day, and she can continue with this. She should also continue with physical therapy focusing on cervical traction, massage, ultrasound and beginning some strengthening of her right upper extremity asshe feels that her hand specifically is still weak. She also should use her TENS unit at home frequently. We discussed further options including epidural injections. She would like to proceed with this. I have scheduled her for at C7-T1 TLESI. We could also consider a right C6-C7 TFESI in the future if needed or surgical consults. She is in agreement with this plan. She will follow up 2 weeks after the injection has been completed and may perform all activities as tolerated. documented in this encounter Plan of Treatment Upcoming Encounters Date Type Specialty Care Team Description 06/25/2022 Telemedicine Neurology Kj Gloria MD PhD 1 [facility], Level [address] [place], [place] [address] (Jayjay anaya) 09/06/2022 Procedure visit Pain Medicine Catalino Garrett M D [address] [facility] [address] [place] [address] (Jayjay anaya) 09/21/2022 Office Visit Bariatrics Allen Thompson, ELISABETH [address] [facility], [facility], [address] [place], [place] [address] (Wo rk) Scheduled Referrals Name Type Priority Associated Diagnoses Order S chedule AMB CONSULT PAIN Outpatient Referral Routine Neck pain Ordered: CLINIC Cervical radiculopathy 05/01 documented as of this encounter Visit Diagnoses Diagnosis Neck pain Cervicalgia Cervical radiculopathy Brachial neuritis or radiculitis nos documented in this encounter Care Teams Tube Skiver Relationship Specialty Start Date End Date Donna Mohr NP PCP - General 10/24/11 09/24/[address] [place] [address] documented as of this encounter
--- OUTSIDE RECORDS SUMMARY | 2022-06-15 07:55 | XMS_ITS | Encounter Summary ---
:1975 Author Organization [facility] Address [address] [place] [address] Care Team Providers Name Role Phone Brian Lindsay MD Primary Care Provider Unavailable Reason for Visit Reason Comments Follow-up foot pain, right/ Os trigonu m Encounter Details Date Type Department Care Team Description 08/02/2011 Office Visit [facility] Catalino Keys tunnel syndrome of right side; Foot & Ankle Program - DMD Os trigonum [place] [address] [facility] [address] [place], [facility] [address] [facility] [phone] Social History Tobacco Use Types Packs/Day Years [...] encounter Progress Notes Catalino Keys MD - 08/02/2011 1418 EST Diagnosis: 1. Tarsal tunnel syndrome of right side (355.5) 2. 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 She was originally sent as a consultation from Dr. Song She is now 6 weeks post right ankle/foot pain treated in a walking boot. She says that her pain is no different, although more of the pain seems to be a burning in her heels (left and right). Pain Vitals: Pain Location: Foot (bilateral, right more than left) Bui-Nicole Pain Rating (Scale 0-10): Hurts worst Numeric Pain Level (Scale 1-10): 10 Pain in another site? : No Pain Quality: Burning;Pins and needles;Tingling Pain Duration: Continuous Pain Aggravating Factors: movement [...] Objective: General : alert, no distress Gait: antalgic. Neurovascular: intact Tenderness: right:tender in the tarsal tunnel with post lauro percussion sign. There is also tenderness over the FBLPN, The PF and FHL are not tender. Left: tender in the tarsal canal with a negative percussion sign, and tenderness over the FBLPN. The PF and FHL are not tender. Swelling: bilateral: mild ROM: she not able to ABD the 5th toe on the right and can do it a bit on the left EMG: chronic right L5 radiculopathy and mild tarsal tunnel Assessment: Bilateral hindfoot/ankle pain, worse on the right, unresponsive to immobilization. She has an EMG and physical exam suggestive of a right tarsal tunnel syndrome, but the apparent underlying anatomic variation of her talus noted on the plane films may indicate an unusual cause of the syndrome. To further evaluate this, we'll get an MRI of her ankle and see her afterwards. Plan: 1. Tarsal tunnel syndrome of right side (355.5) 2. 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 MR EXTREMITY ANKLE W/WO CONTRAST Immobilization: none Medications: none Imaging at next visit::none Follow up: Return after MRI. Cc: Referring Provider - Dr. Song PCP - Brian Lindsay MD documented in this encounter Plan of Treatment Upcoming Encounters Date Type Specialty Care Team Description 06/25/2022 Telemedicine Neurology Kj Gloria MD PhD 1 [facility], Level [address] [place], [place] [address] (Wo rk) 09/06/2022 Procedure visit Pain Medicine Catalino Garrett M D [address] 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
--- OUTSIDE RECORDS SUMMARY | 2022-06-15 07:55 | XMS_ITS | Encounter Summary ---
:[address] [facility] Address [address] [place] [address] Care Team Providers Name Role Phone LailajordynDonna barnes GIULIA Primary Care Provider Reason for Visit Reason Comments Neck Pain Arm Pain right Encounter Details Date Type Department Care Team Description 07/03/2012 Office Visit [facility] Starr Hart Neck p ain (Primary Dx); Spine Program - S, ELISABETH Cervical rad iculopathy [place] [address] Social History Tobacco Use Types [...] - Inhaled Oxygen Concentration - - Weight 127.5 kg (281 lb) 07/03/2012 09 EDT Height 172.7 cm (5' 8) 07/03/2012 0929 EDT Body Mass Index 42.73 07/03/2012 0929 EDT documented in this encounter Discharge Disposition Disposition Code Departure Means Destination Auto Discharge documented in this encounter Progress Notes Starr Hart PA - 07/03/2012 1232 EDT Tia is a 37-year-old female who returns for followup. She had a C7-T1 TLESI 06/13. She notes thatnot much of her pain has changed at this point. The numbness that was affecting the left thumb and middle finger has resolved though the index finger is still numb. She experiences significant amount of pain in the right lateral neck into the right upper trapezius, her right periscapular region and then through the right upper extremity with numbness into the volar forearm and index finger as noted before. She has been taking Lyrica 50 mg 3 times a day and overall this has been helpful for the discomfort in her feet. She is status post the L5-S1 diskectomy and fusion by Dr Child in 2006. She has been doing physical therapy, which has focused on massage to loosen up the upper trapezius and periscapular muscles as well as some upper extremity strengthening. She notes that this has created some additional soreness in her neck. For this problem, she has tried 7-day course of prednisone. Flexeril and Toradol. She tried gabapentin without significant relief. She notes that her right arm continues to feel weak and she does drop objects as a result of this. OBJECTIVE: Cervical MRI without contrast 03/28/2012 C5-6 small central disk herniation which indents the anterior thecal sac without significant foraminal stenosis. C6-C7 moderate right paracentral and foraminal disk herniation resulting in moderate right neural foraminal stenosis. ASSESSMENT AND PLAN: A 37-year-old female with diskogenic neck pain and right cervical radiculopathyin a C7 distribution. We discussed continuing with Lyrica and doubling up on her dose by 1 pill every 2 to 3 days as needed, maximum 100 mg 3 times a day. She should continue with physical therapy at this time and at this point, she would like a surgical consult with Dr Child. She will follow up withme as needed with activities as tolerated. I spent a total of 15 minutes of [id number] time with the patient today, 15 minutes of my time wasspent counseling the patient with risks and treatment options for neck pain and cervical radiculopathy. documented in this encounter Plan of Treatment Upcoming Encounters Date Type Specialty Care Team Description 06/25/2022 Telemedicine Neurology Kj Gloria MD PhD 1 [facility], Level [address] [place], [place] [address] (Wo rk) 09/06/2022 Procedure visit Pain Medicine Catalino Garrett M D [address] [facility] [address] [place] [address] (Wo rk) 09/21/2022 Office Visit Bariatrics Allen Thompson PA-C 111 [facility] venue [facility], [facility], [address] [place], [place] [address] (Wo rk) documented as of this encounter Visit Diagnoses Diagnosis Neck pain - Primary Cervicalgia Cervical radiculopathy Brachial neuritis or radiculitis nos documented in this encounter Care Teams Rolling Machine Operator Automatic Relationship Specialty Start Date End Date Donna Mohr NP PCP - General 10/24/11 09/24/12 [place] [address] documented as of this encounter
--- OUTSIDE RECORDS SUMMARY | 2022-06-15 07:55 | XMS_ITS | Encounter Summary ---
:1975 Author Organization [facility] Address [address] [place] [address] Care Team Providers Name Role Phone Donna Mohr NP Primary Care Provider Encounter Details Date Type Department Care Team Description 08/07/2012 Hospital Encounter [facility] Unknown, P MD chas [facility] [address] [facility]. [address] [place] [phone] Means MD Taylor [address] [place], [place] [phone] Social History Tobacco Use Types Packs/Day Years [...] mg every afternoon, 10 mg every evening. ACETAMINOPHEN (TYLENOL ORAL) Take 650 mg by 0 09/07/2015 mouth as needed. duloxetine (CYMBALTA) 30 mg Take 30 mg by 0 09/22/2012 capsule mouth 2 times daily. ibuprofen (MOTRIN) 200 mg Take 600 mg by 0 09/29/2012 tablet mouth every 6 hours. indomethacin (INDOCIN SR) 75 Take 1 Cap by 30 Cap 2 04/0409/22/2012 mg SR capsule mouth daily. pregabalin (LYRICA) 50 mg Take by mouth. 2 0 08/21/2012 capsule tabs am, 2 tab mid day, 2 tabs pm pregabalin (LYRICA) 50 mg Take 1 Cap by 90 Cap 2 012 08/21/2012 capsule mouth 3 times daily. topiramate (TOPAMAX) 100 mg Take 200 mg by 0 02/03/2015 tablet mouth 2 times daily. documented as of this encounter Discharge Disposition Disposition Code Departure Means Destination Home or Self Shelter documented in this encounter Procedure Notes ORE BUYER, SCAN 2 - 08/13/2012 1669 ESTAssociated Order(s): ELECTROMYOGRAM - SCANNED documented in this encounter Plan of Treatment Upcoming Encounters Date Type Specialty Care Team Description 06/25/2022 Telemedicine Neurology Kj Gloria MD PhD 1 [facility] 2 [place], [place] [address] (Jayjay anaya) 09/06/2022 Procedure visit Pain Medicine Catalino Garrett M D [address] [facility] [address] [place] [address] (Jayjay anaya) 09/21/2022 Office Visit Bariatrics Allen Thompson PA-C [address] [place] [address] [facility], [facility], [address] [place], [place] [address] (Jayjay anaya) documented as of this encounter Procedures Procedure Name Priority Date/Time Associated Comments Diagnosis ELECTROMYOGRAM - 08/13/2012 15:35 Results for this SCANNED EST procedure are i n the results section. documented in this encounter Results ELECTROMYOGRAM - SCANNED (08/13/2012 15:35 EST) Specimen Narrative 08/13/2012 15:36 EST Procedure Note ORE BUYER, SCAN 2 - 08/13/2012 15:35 EST documented in this encounter Visit Diagnoses Not on filedocumented in this encounter Care Teams Cleaning Team Member Relationship Specialty Start Date End Date Donna Mohr NP PCP - General 10/24/11 09/24/12 [address] [place] [address] documented as of this encounter
--- OUTSIDE RECORDS SUMMARY | 2022-06-15 07:55 | XMS_ITS | Encounter Summary ---
:1975 Author Organization [facility] Address [address] [place] [address] Care Team Providers Name Role Phone LailajordynDonna barnes GIULIA Primary Care Provider Encounter Details Date Type Department Care Team Description 09/01/2012 Abstract [facility] Hand & Khris Barraza MD Upper Extremity Program - [address] [facility] [address] [facility] [address] [place], [place], [place] [phone] (Jayjay anaya) Social History Tobacco Use Types [...] MD PhD 1 [facility], Level [address] [place], [place] [address] (Jayjay anaya) 09/06/2022 Procedure visit Pain Medicine Catalino Garrett M D [address] [place] [address] [address] [place] [address] (Wo rk) 09/21/2022 Office Visit Bariatrics Allen Thompson, ZHOUC [address] [facility], [facility] 5 [place], [place] [address] (Wo rk) documented as of this encounter Visit Diagnoses Not on filedocumented in this encounter Care Teams Cereal Supervisor Relationship Specialty Start Date End Date Donna Mohr NP PCP - General 10/24/11 09/24/12 [address] [place] [address] documented as of this encounter
--- OUTSIDE RECORDS SUMMARY | 2022-06-15 07:55 | XMS_ITS | Encounter Summary ---
:1975 Author Organization [facility] Address [address] [place] [address] Care Team Providers Name Role Phone Juma Herrera MD Primary Care Provider Unavailable Encounter Details Date Type Department Care Team Description 09/25/2012 Orders Only [facility] Spine Becki Rea RN [address] [place] [address] [place] [address] Social History Tobacco Use Types Packs/Day Years [...] documented as of this encounter Progress Notes Becki Rea RN - 09/25/2012 1102 EST Surgical invasiveness index has been calculated by the attending surgeon. The total score is 6. Becki Rea RN documented in this encounter Plan of Treatment Upcoming Encounters Date Type Specialty Care Team Description 06/25/2022 Telemedicine Neurology Kj Gloria MD PhD 1 [facility] Level [address] [place], [place] [phone] (Wo rk) 09/06/2022 Procedure visit Pain Medicine Catalino Garrett M D [address] [facility] [address] [place] [address] (Wo rk) 09/21/2022 Office Visit Bariatrics Allen Thompson PA-C 111 [facility], [facility], [address] [place], [place] [address] (Wo rk) documented as of this encounter Visit Diagnoses Not on filedocumented in this encounter Care Teams Counselor Education Professor Relationship Specialty Start Date End Date Juma Herrera MD PCP - General 09/25/12 12/07/18 [address] [place] [address] documented as of this encounter
--- OUTSIDE RECORDS SUMMARY | 2022-06-15 07:55 | XMS_ITS | Encounter Summary ---
:1975 Author Organization [facility] Address [address] [place] [address] Care Team Providers Name Role Phone Juma Herrera MD Primary Care Provider Unavailable Reason for Referral Consult, Test and Treat (Routine/Next Available) - Closed Specialty Diagnoses / Procedures Referred By Contact Refer red To Contact Diagnoses Cervicalgia Kj Child MD [address] [place] [id number] Referral ID Status Reason Start Date Expiration Date Visits V isits Requested Authorized [id number] Closed Specialty 10/01/2012 1 1 Services Required Question Answer Reason for Request: Post-op PT Surgery (and Date): 09/29/12 Comments S/p C6-7 ACDF/allog/plate Reason for Visit Reason Onset Date Comments Referral Request 10/01/2012 Encounter Details Date Type Department Care Team Description 10/01/2012 Orders Only [facility] Becki Rea Ce rvicalgia (Primary Spine Program - RN Dx) [address] [id number] Social History Tobacco Use Types Packs/Day [...] Kj Gloria MD PhD 1 [facility], Level 2 [place], [place] [address] (Wo rk) 09/06/2022 Procedure visit Pain Medicine Catalino Garrett M D [address] [facility] [address] [place] [address] (Wo rk) 09/21/2022 Office Visit Bariatrics Allen Thompson, PALizettC [address] [facility], [facility], [address] 5 [place], [place] [address] (Wo rk) Scheduled Referrals Name Type Priority Associated Diagnoses Order S chedule AMB CONSULT Outpatient Referral Routine Cervicalgia Ordered: PHYSICAL THERAPY 10/01/2012 documented as of this encounter Visit Diagnoses Diagnosis Cervicalgia - Primary documented in this encounter Care Teams Wax Blender Relationship Specialty Start Date End Date Juma Herrera MD PCP - General 09/25/12 12/07/18 [address] [place] [address] documented as of this encounter
--- OUTSIDE RECORDS SUMMARY | 2022-06-15 07:55 | XMS_ITS | Encounter Summary ---
:[address] [facility] Address [address] [place] [id number] Care Team Providers Name Role Phone Donna Mohr NP Primary Care Provider Encounter Details Date Type Department Care Team Description 10/31/2011 Hospital Encounter [facility] Jeannette Keys Perioperative Services Gabriel Montano MD syndrome of right [address] [address] [facility] [phone] [place] [address] Social History Tobacco Use Types Packs/Day [...] Sign Reading Time Taken Comments Blood Pressure 142/71 10/31/2011 1551 EST Pulse - - Temperature 36.3 ??C (97.3 ??F) 10/31/2011 1545 EST Respiratory Rate 20 10/31/2011 1551 EST Oxygen Saturation 98% 10/31/2011 1551 EST Inhaled Oxygen Concentration - - Weight 134.7 kg (297 lb) 10/24/2011 0804 EST Height 172.7 cm (5' 8) 10/24/2011 0804 EST Body Mass Index 45.16 10/24/2011 0804 EST documented in this encounter Discharge Instructions InstructionsGabriel Keys MD - 10/31/2011 Stay non-weight bearing on the right in splint. Keep incision dry. Followup with Dr. Keys in 2 weeks. If there are any questions, please call [phone] and ask for Pat Yeates documented in this encounter Medications at Time [...] afternoon, 10 mg every evening. ACETAMINOPHEN (TYLENOL Take 650 mg by 0 09/07/2015 ORAL) mouth as needed. gabapentin (NEURONTIN) 100 Take 300 mg by 0 03/20/2012 mg capsule mouth 3 times daily. ibuprofen (MOTRIN) 200 mg 600 mg every 6 0 12/17/2011 tablet hours as needed. oxycodone (ROXICODONE) 5 mg Take 1-2 Tabs by 60 Tab 0 12/17/2011 immediate release tablet mouth every 4 hours as needed for Pain. topiramate (TOPAMAX) 100 mg Take 200 mg by 0 02/03/2015 tablet mouth 2 times daily. documented as of this encounter Ordered Prescriptions Prescription Sig Dispensed Refills Start Date End Date oxycodone (ROXICODONE) 5 Take 1-2 Tabs by 60 Tab 0 12/17/2011 mg immediate release mouth every 4 hours tablet as needed for Pain. documented in this encounter Discharge Disposition Disposition Code Departure Means Destination Home or Self Care documented in this encounter Progress Notes PROJECT CONTROL OFFICER, KAYKAY 2 - 11/02/2011 1240 EST Brit Welsh RN - 10/31/2011 1548 EST Uneventful pacu course thus far. VSS. Pain and nausea improving. Taking po. CMST's RLE WNL. Family visiting. Angely Villafana RN - 10/24/2011 0831 EST Tia Eileen Spain has been instructed as follows regarding medication administration for the day of thescheduled procedure. Date of Surgery: 10/31/11 Instructions for Taking Medications Day of Surgery Medication Last Dose Hold DOS Take DOS gabapentin (NEURONTIN) 100 mg capsule X methylphenidate (RITALIN SR; METADATE ER; METHYLIN ER) 20 mg SR tablet X ibuprofen (MOTRIN) 200 mg tablet 3 days preop X ACETAMINOPHEN (TYLENOL ORAL) X topiramate (TOPAMAX) 100 mg tablet X duloxetine (CYMBALTA) 30 mg capsule X documented in this encounter H&P Notes PROJECT CONTROL OFFICER, SCAN 2 - 11/02/2011 1240 EST Gabriel Rowan MD - 10/31/2011 1305 EST The preoperative history and physical which was performed within 30 days of this procedure has been reviewed and the clinically appropriate elements of the physical examination havebeen repeated. There are no changes to the documented history and physical or if so such changes aredocumented below GABRIEL KEYS MD 10/31/2011 13:05 documented in this encounter Procedure Notes PROJECT CONTROL OFFICER, SCAN 2 - 11/02/2011 1239 ESTAssociated Order(s): ORDERS - SCANNED PROJECT CONTROL OFFICER, SCAN 2 - 11/02/2011 1239 ESTAssociated Order(s): ECG REPORT - SCANNED documented in this encounter OR Notes OR PreOp - PROJECT CONTROL OFFICER, SCAN 2 - 11/02/2011 1240 EST R Surgeon - Gabriel Keys MD - 11/01/2011 0744 EST OPERATIVE REPORT SERVICE DATE: 10/31/2011 SURGEON: Gabriel Keys MD TESTING ENGINEER: Gabriel Warner MD PREOPERATIVE DIAGNOSIS: Right tarsal tunnel syndrome. POSTOPERATIVE DIAGNOSIS: Right tarsal tunnel syndrome. PROCEDURE: Right tarsal tunnel release. ANESTHESIA: General. FINDINGS: Posterior artery and 2 venous branches crossing superficial to the posterior tibial nerve.No other clear areas of compression noted. INDICATIONS: Tia Spain is a 36-year-old female with a symptomatic tarsal tunnel syndrome. After conservative therapy, she elected to have an open tarsal tunnel release, understanding the risks and benefits. NARRATIVE: The patient was identified in the preoperative holding area. Operative site was confirmedand marked by Dr Keys. History, physical and consent were reviewed and updated. The patient wastransported to the OR by nursing staff. She was placed supine on the operating table. A pillow was placed behind the knees. General anesthesia was successfully induced. The patient received 2 g of cefazolin prior to incision. A well-padded nonsterile pneumatic tourniquet was placed on the right calf. The right foot and ankle were then prepped and draped in normal sterile fashion. Preoperative brief was held. No stops were encountered. We proceeded with the operation. Curvilinear approach to the tarsal tunnel was performed. The incision began approximately 5 to 6 cm above the tip of malleolus and curved anteriorly around the foot. It ended over the mid portion of the abductor hallucis muscle belly. Skin and subcu were incised sharply. Scissors dissection was carried out down to the level of the fascia. Bridging veins were controlled with judicious use of cautery. A bert was made in the fascia posterior to the posterior tibialis tendon sheath. This sheath incisionwas extended with scissors, first proximally and then distally, down to the level of the abductor. There were two large veins and an artery branch very prominent within the sheath. The 2 venous branches were controlled with cautery. The arterial branch was left intact. It was noted to be crossing superficial to the posterior tibial nerve about the level of the tip of the medial malleolus. The arterial branch was freed up so that it draped freely over the nerve without causing any compression. In the proximal tunnel, the fascial incision was extended up proximally to the level of the deep fascia of the posterior superficial compartment. The nerve was identified and followed distally where itwas seen to branch into the lateral plantar nerve and the medial plantar nerve. The 1st branch off the posterior aspect of the lateral plantar nerve was also identified. We first traced the medial plantar nerve distally until it dove under the abductor. The leading edge of the abductor fascia was released and the nerve was traced distally. Overlying fascial bands were released until a [place] could easily be passed without any obstruction along the course of the nerve through the fibroosseous tunnel. We then traced the lateral plantar nerve in a similar manner and any bridging fascial bands were released with scissors. We then palpated proximally again to be sure that an adequate release had been performed proximally and it had. We were then satisfied with the release of pressure from the full length of the nerve and its branches. Tourniquet was deflated after a total time of 32 minutes. It had been inflated after Esmarch exsanguination prior to incision to 250 mmHg. Upon tourniquet release, there were no serious bleeders. One branch of the vein had to be recauterized. The artery was seen pulsatile and healthy. There were no areas of significant nerve compression noted other than the classically described areas. There are, however, no noted constrictors of the nerve itself. After irrigation with sterile saline, skin was closed with 3-0 Monocryl and 5-0 chromic. Sterile dressing was applied. A plaster short leg splint was fashioned thereafter. Then 10 mL of 0.5% Marcaine plain were infiltrated locally about the wound prior to dressing. Dr Keys was scrubbed and present for the entirety of the case. Needle and sponge counts were correct. There were no final images to review. There were no complications. ESTIMATED BLOOD LOSS: Minimal. FLUIDS: 800 mL. URINE OUTPUT: Not monitored. TOURNIQUET TIME: 32 minutes at 250 mmHg. SPECIMENS: None. CULTURES: None. DRAINS: None. IMPLANTS: None. COMPLICATIONS: None. CONDITION: Hemodynamically stable. DISPOSITION: PACU to home. Unless otherwise noted, there were no complications, no blood loss, no cultures obtained, no specimens removed, and no drains retained. Attestation Statement: I was present for the entire case. Gabriel Keys MD Gabriel Keys MD 02 54 PM / Gabriel Warner MD ss Confirmation: [id number] Dictation ID: [id number] nesthesia Preprocedure Evaluation - PROJECT CONTROL OFFICER, SCAN 2 - 10/31/2011 1547 EST nesthesia Procedure Notes - PROJECT CONTROL OFFICER, SCAN 2 - 10/31/2011 1453 EST R PreOp - PROJECT CONTROL OFFICER, SCAN 2 - 10/31/2011 1421 EST documented in this encounter Miscellaneous Notes Scanned Note-Null - PROJECT CONTROL OFFICER, SCAN 2 - 11/02/2011 1240 EST canned Note- Null - PROJECT CONTROL OFFICER, SCAN 2 - 11/02/2011 1239 EST nesthesia Post-Eval - Gabriel Pack S - 10/31/2011 1537 EST Post Anesthesia Evaluation Note Date of Service: 10/31/2011 Tia Arellano Grabiel, a 36 y.o. year old female has received General Anesthesia today. She has been evaluated, assessed and discharged from anesthesia care with stable cardiorespiratory function and alert mental status. The last set of recorded vital signs and pain rating were reviewed: Temp: 36.5 ??C (97.7 ??F) (10/31/11 1443), Heart Rate: 108 BPM (10/31/11 1530), BP: 135/68 mmHg (10/31/11 1530), Resp: 17 (10/31/11 1530), SpO2: 100 % (10/31/11 1530),Numeric Pain Level (Scale 1-10): 5 Tia Spain participated in this evaluation unless otherwise noted. Her pain, nausea and vomitinghave been managed and her body temperature and fluid balance have been restored. Additional monitoring and assessment needs have been addressed. If present, any postoperative events are documented below. Mild nausea and pain. Getting better. GABRIEL PACK MD 10/31/2011 15:37 rief Op Note - Gabriel Keys MD - 10/31/2011 1445 EST Brief Operative Report Surgeon: Gabriel Keys MD Pre-op Diagnosis: Right tarsal tunnel syndrome Post-op Diagnosis: Same Procedure(s): right tarsal tunnel release Assistants: GABRIEL WARNER MD Anesthesia: General Findings: See full dictation for details. Abx: 2 g cefazolin x 1 pre-op. EBL: Minimal IVF: 800cc of fluid replacement. UOP: NM Local: 10 cc 0.5 % Marcaine without epinephrine Tourniquet time: 32 min Final images reviewed: Yes Specimens/Cultures: None Drains/Packs/Foreign materials: None Implants: none. See full dictation for details Complications: none Condition: PACU - hemodynamically stable. Disposition: PACU to home Plan: 1. NWB with crutches. 2. Keep Splint Dry GABRIEL WARNER MD 10/31/2011, 14:45 Attestation Statement: I was present for the entire case. Gabriel Keys MD documented in this encounter Plan of Treatment Upcoming Encounters Date Type Specialty Care Team Description 06/25/2022 Telemedicine Neurology Kj Gloria MD PhD 1 [facility], [address] [place], [place] [address] (Wo rk) 09/06/2022 Procedure visit Pain Medicine Gabriel Garrett M D [address] [place] [address] (Wo rk) 09/21/2022 Office Visit Bariatrics Allen Thompson PA-C [address] [facility], [facility], [address] [place], [place] [address] (Wo rk) documented as of this encounter Procedures Procedure Name Priority Date/Time Associated Diagnosis Comme nts ECG REPORT - 11/02/2011 12:39 Results for this SCANNED EST procedure are i n the results section. ORDERS - SCANNED 11/02/2011 12:39 Results for this EST procedure are i n the results section. documented in this encounter Results ORDERS - SCANNED (11/02/2011 12:39 EST) Specimen Narrative This result has an attachment that is no t available. Transcriptions PROJECT CONTROL OFFICER, SCAN 2 - 11/02/2011 12:39 EST ECG REPORT - SCANNED (11/02/2011 12:39 EST) Specimen Narrative This result has an attachment that is no t available. Transcriptions PROJECT CONTROL OFFICER, SCAN 2 - 11/02/2011 12:39 EST documented in this encounter Visit Diagnoses Diagnosis Tarsal tunnel syndrome of right side - P rimary Tarsal tunnel syndrome documented in this encounter Administered Medications Inactive Administered Medications - up to 3 most recent administrations Medication Order MAR Action Action Date Dose Rate Site ceFAZolin (ANCEF) syringe 2 g Given by Other 10/31/2011 13:24 EST 2 g 2 g, intravenous, Administer over 10 Minutes, PRE-OP ONCE, 1 dose, On Sat10/31/11 at 1130, Routine, Pre Op Day of Surgery diphenhydrAMINE (BENADRYL) injection 6.2 5 mg Given 10/31/2011 15:14 EST 6.25 mg 6.25 mg, intravenous, PRN, 2 doses, Starting on Sat10/31/11 at 1424, Until Sat10/31/11 at 1829, nausea, Routine, Recovery (only) fentanyl citrate (PF) 50 mcg/mL injection Given 10/31/2011 15:28 EST 50 mcg 25-100 mcg 25-100 mcg, intravenous, EVERY 5 MIN PRN, Starting on Sat10/31/11 at 1424, Until Sat10/31/11 at 1829, Pain, Routine, Recovery (only) Given 10/31/2011 15:16 EST 50 mcg ondansetron (PF) (ZOFRAN) injection 2-4 mg Given 10/31/2011 14:57 EST 2 mg 2-4 mg, intravenous, PRN, 1 dose, Starting on Sat10/31/11 at 1424, Until Sat10/31/11 at 1457, Nausea, Vomiting, Routine, Recovery (only) oxycodone (ROXICODONE) immediate release tablet Given 10/31/2011 15:26 EST 10 mg 5 mg 5 mg, oral, PRN, 2 doses, Starting on Sat10/31/11 at 1424, Until Sat10/31/11 at 1829, Pain, x 2 doses, Routine, Recovery (only) documented in this encounter Discontinued Medications Medication Sig Discontinue Reason Start Date End Date duloxetine (CYMBALTA) Take 60 mg by Error 10/24 60 mg capsule mouth daily. amlodipine (NORVASC) Take 2.5 mg by Patient Stopped Taking 05/16/20 11 10/24/2011 2.5 mg tablet mouth 2 times daily. documented as of this encounter Historical Medications This list may reflect changes made after this encounter. Medication Sig Dispensed Refills Start Date End Date methylphenidate (RITALIN SR; Take by mouth 2 0 METADATE ER; METHYLIN ER) 20 times daily. mg SR tablet Takes 20 mg every morning, 20 mg every afternoon, 10 mg every evening. ibuprofen (MOTRIN) 200 mg 600 mg every 6 0 12/17/2011 tablet hours as needed. gabapentin (NEURONTIN) 100 Take 300 mg by 0 03/20/2012 mg capsule mouth 3 times daily. added in this encounter Active and Recently Administered Medications Times are shown in EST. Scheduled Medication Order 10/29/2011 10/30/2011 10/31/2011 ceFAZolin (ANCEF) syringe 2 g (COMPLETED) 1324 (Given by Other - Provider: Toshia Anderson - Comment: given by Gladis Marte) 2 g, Intravenous, for 10 Minutes, PRE-OP ONCE, 1 dose, Sat at 1130 PRN Medication Order 10/29/2011 10/30/2011 10/31/2011 diphenhydrAMINE (BENADRYL) injection 6.25 mg (CANCELED) 1514 (Given - Provider: Brit Morgan, ALEXANDER) 6.25 mg, Intravenous, PRN, 2 doses, Star ting Sat10/31/11 at 1424, Until Sat10/31/11 at 1829, nausea fentanyl citrate (PF) 50 mcg/mL injection 25-100 mcg (CANCELED) 1516 (Given - Provider: Brit Morgan, ALEXANDER)1528 (Given - Provider: Brit Morgan, ALEXANDER) 25-100 mcg, Intravenous, EVERY 5 MIN PRN , Starting Sat10/31/11 at 1424, Until Sat10/31/11 at 1829, Pain ondansetron (PF) (ZOFRAN) injection 2-4 mg (COMPLETED) 1457 (Given - Provider: Brit Morgan, ALEXANDER) 2-4 mg, Intravenous, PRN, 1 dose, Starti ng Sat10/31/11 at 1424, Until Discontinued, Nausea, Vomiting oxycodone (ROXICODONE) immediate release tablet 5 mg (CANCELED) 1526 (Given - Provider: Brit Morgan, ALEXANDER) 5 mg, Oral, PRN, 2 doses, Starting Sat at 1424, Until Sat10/31/11 at 1829, Pain, x 2 doses documented in this encounter Orders Medications Ordered That Might Not Have Count Last Ord ered Date First Ordered Date Been Administered acetaminophen (TYLENOL) tablet 500 mg 1 10/31/2011 atropine 0.1 mg/mL 10 mL syringe 0.5 mg 1 10/31/19 12 hydrocodone-acetaminophen (LORTAB;VICODIN) 1 5-500 mg per tablet 1-2 Tab HYDROmorphone (DILAUDID) tablet 2 mg 1 10/31/2011 HYDROmorphone (PF) (DILAUDID) 1 mg/mL 1 10/31/2011 injection 0.2-1 mg lactated ringers (LR) infusion 2 10/31/2011 meperidine (PF) (DEMEROL) 25 mg/0.5 mL 1 2 injection 12.5 mg metoCLOPramide (REGLAN) injection 10 mg 1 10/31/19 12 midazolam (VERSED) injection 0.5-2 mg 1 10/31/2011 naloxone (NARCAN) injection 0.2 mg 1 10/31/2011 oxycodone-acetaminophen (PERCOCET) 5-325 1 012 mg per tablet 1-2 Tab Nursing Count Last Ordered Date First Ordered Date INSERT PERIPHERAL IV 1 10/31/2011 Admission Count Last Ordered Date First Ordered Date ADMIT TO OUTPATIENT 1 10/31/2011 NOTIFY PPS PACU PATIENT DISCHARGE 1 10/31/2011 Discharge Count Last Ordered Date First Ordered Date DISCHARGE PATIENT 1 10/31/2011 Equipment Count Last Ordered Date First Ordered Date CRUTCHES 1 10/31/2011 documented in this encounter Care Teams Detasseler Relationship Specialty Start Date End Date Donna Mohr, GIULIA PCP - General 10/24/11 09/24/12 [address] [facility] [facility] [address] documented as of this encounter
--- OUTSIDE RECORDS SUMMARY | 2022-06-15 07:55 | XMS_ITS | Encounter Summary ---
:1975 Author Organization [facility] Address [address] [place] [address] Care Team Providers Name Role Phone LailajordynDonna barnes GIULIA Primary Care Provider Reason for Visit Reason Onset Date Comments Medications Refill 05/29/2012 Encounter Details Date Type Department Care Team Description 05/29/2012 Refill [facility] Starr Santiago, Medications Refill Program - Scout [facility], [place] [address] Social History Tobacco [...] Sig Dispensed Refills Start Date End Date pregabalin (LYRICA) 50 mg Take 1 Cap by mouth 90 Cap 2 0 05/29/2012 08/21/2012 capsule 3 times daily. documented in this encounter Miscellaneous Notes Telephone Encounter - Nena Bo - 05/29/2012 4205 EDT Starr - patient calls in requesting refill of Lyrica to [facility]et[facility] Avenda[facility] in [facility] be phoned in. Please advise. Nena Bo 05/29/2012 11:39 documented in this encounter Plan of Treatment Upcoming Encounters Date Type Specialty Care Team Description 06/25/2022 Telemedicine Neurology Kj Gloria MD PhD 1 [facility], [address] [place], [place] [address] (Wo rk) 09/06/2022 Procedure visit Pain Medicine Catalino Garrett M D [address] [facility] [address] [place] [address] (Wo rk) 09/21/2022 Office Visit Bariatrics Allen Thompson PA-C [address] [place] [address], [facility], [address] [place], [place] [phone] (Wo rk) documented as of this encounter Visit Diagnoses Diagnosis Tarsal tunnel syndrome of right side Tarsal tunnel syndrome Idiopathic peripheral neuropathy Unspecified hereditary and idiopathic pe ripheral neuropathy documented in this encounter Discontinued Medications Medication Sig Discontinue Reason Start Date End Date pregabalin (LYRICA) 25 mg Take 2 Caps by 04/03/2012 05/29/2012 capsuleIndications: mouth 3 times Tarsal tunnel syndrome of daily. right side, Idiopathic peripheral neuropathy documented as of this encounter Care Teams Installation Superintendent Relationship Specialty Start Date End Date Donna Mohr, GIULIA PCP - General 10/24/11 09/24/12 [address] [place], [place] [id number] documented as of this encounter
--- OUTSIDE RECORDS SUMMARY | 2022-06-15 07:55 | XMS_ITS | Encounter Summary ---
:1975 Author Organization [facility] Address [address] [place] [address] Care Team Providers Name Role Phone RosibeljonathaneverardoDonna GIULIA Primary Care Provider Reason for Visit Reason Comments Neck Pain Arm Pain right Encounter Details Date Type Department Care Team Description 06/13/2012 Office Visit [facility] - Kavon Butler, Cerv ical radiculopathy (Primary Dx); [facility] MD Cervical disc herniation [facility] [address] [address] Interventional Pain ANNMAR[address] [place] [phone] Social History Tobacco Use Types Packs/Day Years [...] Sign Reading Time Taken Comments Blood Pressure 142/93 06/13/2012 0957 EDT Pulse 79 06/13/2012 0957 EDT Temperature 36.8 ??C (98.3 ??F) 06/13/2012 0858 EDT Respiratory Rate 20 06/13/2012 0957 EDT Oxygen Saturation - - Inhaled Oxygen Concentration - - Weight 134.3 kg (296 lb) 06/13/2012 0858 EDT Height 172.7 cm (5' 8) 06/13/2012 0858 EDT Body Mass Index 45.01 06/13/2012 0858 EDT documented in this encounter Patient Instructions Patient InstructionsCuYamilka benoit - 06/13/2012 9:47 EDT [facility] [place] [address] Patient Instructions You have had your cervical Epidural Steroid Injection. The purpose of this procedure has been to place medication which may help relieve your pain. Steroid may be used to decrease the swelling and nerve irritation which may be causing your pain. The following information should help you over the next few days regarding what you may expect. Please take it easy for the rest of today. DO NOT drive a car for the [...] our officeimmediately. If you develop increasingly severe neck/back pain, continued numbness or weakness of the arms/legs or changes in your bladder or bowel functions, please call our office at once. Instructions for follow-up If you have any questions about your block, please call YAMILKA MACARIO RN Patient Education Topic: Method: Handout and Verbal Taught to: Patient Barriers: None Outcomes: independent Signature:YAMILKA MACARIO RN documented in this encounter Progress Notes Kavon Butler - 06/13/2012 0943 EDT Patient Name: Tia Spain : 1975 Date of Service: 06/13/2012 Platinumsmith: Kavon Butler MD Interval History: Ms. Spain presents at the request of Starr AVILA for evaluation and treatment of her chronic neck pain and arm pain. The pain is primarily localized to the right neck and radiates down the right posterior arm and ulnar forearm to end in her 3 and 4th finger.. This neck pain hasbeen present for about 2 yeas, but this arm pain has been present for 3 month(s) and is described asdull, throbbing and pins and needles in character. The average pain intensity is 7/10 and is aggravated by physical activities. Nothing alleviates the pain. This pain has not responded to conservative measures. Imaging: MRI of the cervical spine is available and was reviewed today. It reveals a C5-6 small central disk herniation and a C6-C7 right sized paracentral foraminal disk herniation. Allergies: Allergies Allergen Reactions ??? Bee Sting (Hymenoptera Allergenic Extract) ??? Codeine ROS: Negative for any fever, chills, nausea/vomiting, headaches, chest pain, palpitations, shortness of breath, bladder/bowel incontinence, easy bruising, bleeding, anti-coagulation or known recent infections. Past Medical History Diagnosis Date ??? Bipolar disorder ??? PTSD (post-traumatic stress disorder) ??? Personality disorder ??? Plantar fasciitis ??? Drug abuse ??? Arthritis ??? Kidney disease ??? Diabetes mellitus ??? Heart disease ??? Hypertension ??? Nervousness ??? Eye problem ??? Breathing problem ??? Back pain ??? Numbness ??? Anxiety ??? Depression ??? Headache ??? History of substance abuse ??? Tarsal tunnel syndrome History Social History ??? Marital Status: Single Spouse Name: N/A Number of Children: N/A ??? Years of Education: N/A Occupational History ??? Not on file. Social History Main Topics ??? Smoking status: Former Smoker Quit date: 01/13/2009 ??? Smokeless tobacco: Not on file ??? Alcohol Use: Yes very rarely ??? Drug Use: No ??? Sexually Active: Other Topics Concern ??? Not on file Social History Narrative ??? No narrative on file Physical Exam: Vital signs: BP 122/76 Pulse 64 Temp(Src) 36.8 ??C (98.3 ??F) (Tympanic) Resp 12 Ht 172.7 cm(68) Wt 134.265 kg (296 lb) BMI 45.01 kg/m2 Patient is alert, oriented x 3 and conversant. Able to stand and ambulate without difficulty. Gait is normal Cardiac reveal regular rate and rhythm. Lungs are clear to auscultation. Cervical spine is tender to palpation over the right trapezius area Examination of the upper extremities reveal decreased public service administrator strength on the right and right triceps Decreased sensation to light touch over the triceps area, ulnar forearm, third and fourth digits. Assessment: 1. Cervical radiculopathy 2. Cervical disc herniation Plan: Proceed with epidural steroid injection at C7-T1 under fluoroscopy. Followup: as needed. PROCEDURE: The patient gave informed written consent to proceed with this procedure following a detailed discussion of the risks and benefits associated with epidural steroid injection in the spine. The patient was then placed in the prone position, the skin over the area was prepped with chlorhexadine, and the s ite was draped with sterile towels. Strict sterile technique was maintained throughout the procedure. A quach moment was performed with full staff present to identify the patient, verify the procedurebeing performed, and review allergies. Fluoroscopy was used to visualize the C7-T1 disc space. The skin and subcutaneous tissue over this level was anesthetized by infiltration of 2% lidocaine. An 18 guage touhy [...] negative aspiration, 80 mg Depo-Medrol and 2 ml normal saline were injected. The needle was then flushed and withdrawn. The patient tolerated the procedure well, there were no apparent complications, and she was discharged in stable condition. Written and verbal discharge instructions were reviewed with the patient prior to discharge. Tricia faulkner - 06/13/2012 0900 EDT [facility] Rooming Note Does patient have a [employer] Piping Designer? yes Is patient NPO? (Solids since midnight & liquids for 4 hrs) Yes, last ate and drank at 1005 pm yesterday Blood Thinners: Is patient on Blood Thinners? Yes, stopped a week ago If yes, taking? ibuprofen If stopped, who authorized stopping? Related comments: Infections: Any recent infections, fever of illnesses? no If on antibiotics, is it 7-10 days past the date of completion of antibiotics? no : (for females of child-bearing age) no Is there a chance current ? Other: documented in this encounter Miscellaneous Notes Scanned Note-Null - MEDICAL OFFICE CLERK, SCAN 2 - 06/13/2012 1204 EDT documented in this encounter Plan of Treatment Upcoming Encounters Date Type Specialty Care Team Description 06/25/2022 Telemedicine Neurology Kj Gloria MD PhD 1 [facility] 2 [place], [place] [phone] (Jayjay anaya) 09/06/2022 Procedure visit Pain Medicine Catalino Garrett M D [address] [facility] [address] [place] [address] (Jayjay anaya) 09/21/2022 Office Visit Bariatrics Donald-Allen Garcia PA-C [address] [facility], [facility], [address] [place], [place] [address] (Jayjay anaya) documented as of this encounter Visit Diagnoses Diagnosis Cervical radiculopathy - Primary Brachial neuritis or radiculitis nos Cervical disc herniation Displacement of cervical intervertebral disc without myelopathy documented in this encounter Care Teams Digital Proofing And Platemaker Relationship Specialty Start Date End Date Donna Mohr, GIULIA PCP - General 10/24/11 09/24/12 [place] [address] documented as of this encounter
--- OUTSIDE RECORDS SUMMARY | 2022-06-15 07:55 | XMS_ITS | Encounter Summary ---
:1975 Author Organization [facility] Address [address] [place] [address] Care Team Providers Name Role Phone Rosibeljonathaneverardo Donna GIULIA Primary Care Provider Reason for Visit Reason Onset Date Comments Other 06/20/2012 Encounter Details Date Type Department Care Team Description 06/20/2012 Telephone [facility] Starr Santiago PA-C Other Program - [address] [place], [place] [address] Social History Tobacco Use [...] this encounter Miscellaneous Notes Telephone Encounter - Charlotte Baptiste - 06/20/2012 0822 EDT Hannah called this morning stating she had her injection last Saturday, and on Saturday developed terrible headache that is still present. States pain is no different, still having pain in her neck and arm with numbness and aching in her arm. She is not taking any pain medication. Has followup with Angela July 03. Since symptoms are no better, is asking if she should see you before July 03. Please advise. documented in this encounter Plan of Treatment Upcoming Encounters Date Type Specialty Care Team Description 06/25/2022 Telemedicine Neurology Kj Gloria MD PhD 1 [facility] [address] [place], [place] [phone] (Wo rk) 09/06/2022 Procedure visit Pain Medicine Catalino Garrett M D [address] [facility] [address] [place] [address] (Wo rk) 09/21/2022 Office Visit Bariatrics Allen Thompson, PALizettC [address] [facility], [facility], [address] [place], [place] [address] (Wo rk) documented as of this encounter Visit Diagnoses Not on filedocumented in this encounter Care Teams Adult Neuropsychologist Relationship Specialty Start Date End Date Donna Mohr NP PCP - General 10/24/11 09/24/12 [place] [address] documented as of this encounter
--- OUTSIDE RECORDS SUMMARY | 2022-06-15 07:55 | XMS_ITS | Encounter Summary ---
:1975 Author Organization [facility] Address [address] [place] [address] Care Team Providers Name Role Phone Donna Mohr NP Primary Care Provider Reason for Visit Reason Onset Date Comments Advice Only 11/28/2011 Encounter Details Date Type Department Care Team Description 11/28/2011 Telephone [facility] Catalino Lorenzo MD Advice Only Ankle Program - [facility] [address] [facility] [place] [phone] (Wo rk) Social History Tobacco [...] Notes Telephone Encounter - Andrea Victor - 11/28/2011 1339 EDT Tia called to report that she is now wearing an Aircast walking boot that she obtained from a local medical supply vendor (regular boot style, comes all the way up to just below knee). She replaced her 3D walking boot, because it was too big when her swelling went down. She wanted to make sure thiswas adequate immobilization and I told her that it was comparable to the 3D boot and should work well to support her ankle/ She is currently working 8 hour shifts and experiencing pain on the medial ankle. I explained that this is not unusual, just 1 month out from surgery, especially with her high activity level. I encouraged her to rest and elevate as much as possible. She will continue to do this and call if she has further questions. Andrea Victor 11/28/2011 documented in this encounter Plan of Treatment Upcoming Encounters Date Type Specialty Care Team Description 06/25/2022 Telemedicine Neurology Kj Gloria MD PhD 1 [facility] [address] [place], [place] [phone] (Wo rk) 09/06/2022 Procedure visit Pain Medicine Catalino Garrett M D [address] [facility] [address] [place] [address] (Wo rk) 09/21/2022 Office Visit Bariatrics Allen Thompson, ELISABETH 111 [facility], [facility], [address] [place], [place] [phone] (Wo rk) documented as of this encounter Visit Diagnoses Not on filedocumented in this encounter Care Teams Extension Associate Relationship Specialty Start Date End Date Donna Mohr NP PCP - General 10/24/11 09/24/[address] [place] [address] documented as of this encounter
--- OUTSIDE RECORDS SUMMARY | 2022-06-15 07:55 | XMS_ITS | Encounter Summary ---
:1975 Author Organization [facility] Address [address] [place] [address] Care Team Providers Name Role Phone Brian Lindsay MD Primary Care Provider Unavailable Reason for Referral Radiology Services (Routine) - Closed Specialty Diagnoses / Procedures Referred By Contact Refer red To Contact Diagnoses Tarsal tunnel syndrome of right side Catalino Keys MD Procedures MRI ANKLE [address] [place] [address] Referral ID Status Reason Start Date Expiration Date Visits Requ ested Visits Authorized [id number] Closed 08/07/2011 1 1 Encounter Details Date Type Department Care Team Description 08/03/2011 Orders Only [facility] Catalino Keys tunnel syndrome Foot & Ankle Program - MD Charmaine of right side (Primary Scout [address] Dx) [address] [facility], [facility] [id number] Social History Tobacco Use Types Packs/Day Years [...] this encounter Progress Notes Andrea Victor - 08/03/2011 1142 EST Hannah requests an external MRI referral which she would like to have done at [facility]. We were unable to coordinate a [facility] MRI and same day follow-up due to her schedule. Andrea Victor 08/03/2011 documented in this encounter Plan of Treatment Upcoming Encounters Date Type Specialty Care Team Description 06/25/2022 Telemedicine Neurology Kj Gloria MD PhD 1 [facility] Level [address] [place], [place] [phone] (Wo rk) 09/06/2022 Procedure visit Pain Medicine Catalino Garrett M D [address] [facility] [address] [place] [address] (Wo rk) 09/21/2022 Office Visit Bariatrics Allen Thompson, ELISABETH 111 [facility], [address] [place], [place] [address] (Wo rk) Scheduled Orders Name Type Priority Associated Diagnoses Order S chedule MRI ANKLE Imaging Routine Tarsal Tunnel Syndrome Of Ri ght Side 08/03/2011 documented as of this encounter Visit Diagnoses Diagnosis Tarsal tunnel syndrome of right side - P rimary Tarsal tunnel syndrome documented in this encounter Care Teams Blow Pit Operator Relationship Specialty Start Date End Date Brian Lindsay MD PCP - General 04/11/11 10/23/11 documented as of this encounter
--- OUTSIDE RECORDS SUMMARY | 2022-06-15 07:55 | XMS_ITS | Encounter Summary ---
:1975 Author Organization [facility] Address [address] [place] [address] Care Team Providers Name Role Phone Brian Lindsay MD Primary Care Provider Unavailable Reason for Visit Reason Onset Date Comments Pre-op Exam 08/21/2011 Encounter Details Date Type Department Care Team Description 08/21/2011 Pre-Procedure Orders [facility] Kristina Aaron LPN Encounter Foot & Ankle Program [address] [place], [place] [phone] [place] [address] [place] [address] Social History Tobacco Use Types [...] Kj Gloria MD PhD 1 [facility] [address] [place], [place] [phone] (Jayjay anaya) 09/06/2022 Procedure visit Pain Medicine Catalino Garrett M D [address] [place] [address] [address] [place] [address] (Jayjay anaya) 09/21/2022 Office Visit Bariatrics Allen Thompson PA-C [address] [place] [address] [facility], [facility], [address] [place], [place] [address] (Wo rk) documented as of this encounter Visit Diagnoses Not on filedocumented in this encounter Care Teams Seam Press Operator Relationship Specialty Start Date End Date Brian Lindsay MD PCP - General 04/11/11 10/23/11 documented as of this encounter
--- OUTSIDE RECORDS SUMMARY | 2022-06-15 07:55 | XMS_ITS | Encounter Summary ---
:1975 Author Organization [facility] Address [address] [place] [address] Care Team Providers Name Role Phone Juma Herrera MD Primary Care Provider Unavailable Reason for Visit Reason Onset Date Comments Post-OP Follow Up 10/01/2012 Encounter Details Date Type Department Care Team Description 10/01/2012 Telephone [facility] Ap Rea, RN Post-OP Follow Up Spine Program - [facility] [address] [place] [address] [place] [address] Social History Tobacco Use Types Packs/Day Years [...] encounter Miscellaneous Notes Telephone Encounter - Becki Rea, RN - 10/01/2012 9804 EST S/p C6-7 ACDF/allog/plate. Pt c/o H/A, which she thinks is a migraine. She is currently taking tylenol and oxycodone. Instructed pt to call PCP if migraine does not get any better. Dressing to her neckwas changed last night. No drainage or signs of infection. She is having some difficulty swallowing,but it seems to be getting better every day. Pt will call with any questions or concerns. documented in this encounter Plan of Treatment Upcoming Encounters Date Type Specialty Care Team Description 06/25/2022 Telemedicine Neurology Kj Gloria MD PhD 1 [facility], Level [address] [place], [place] [phone] (Wo rk) 09/06/2022 Procedure visit Pain Medicine Catalino Garrett M D 62 [facility] [address] [place] [address] (Wo rk) 09/21/2022 Office Visit Bariatrics Allen Thompson PA-C 111 [facility], [facility], [address] [place], [place] [phone] (Wo rk) documented as of this encounter Visit Diagnoses Not on filedocumented in this encounter Care Teams Keypuncher Relationship Specialty Start Date End Date Juma Herrera MD PCP - General 09/25/12 12/07/18 [address] [place] [address] documented as of this encounter
--- OUTSIDE RECORDS SUMMARY | 2022-06-15 07:55 | XMS_ITS | Encounter Summary ---
:[address] [facility] Address [address] [place] [address] Care Team Providers Name Role Phone Onur Donna PLATT Primary Care Provider Reason for Visit Reason Comments Neck Pain Encounter Details Date Type Department Care Team Description 08/08/2012 Office Visit [facility] Ana Rosa Mendoza (Primary Spine Program - Moises Kovacs MD Dx) [address] [address] Social History Tobacco Use Types [...] - Inhaled Oxygen Concentration - - Weight 125.6 kg (277 lb) 08/08/2012 1056 EST Height 172.7 cm (5' 8) 08/08/2012 1056 EST Body Mass Index 42.12 08/08/2012 1056 EST documented in this encounter Discharge Disposition Disposition Code Departure Means Destination Auto Discharge documented in this encounter Progress Notes Becki Rea RN - 08/08/2012 1432 EST Patient Education Topic: C6-7 ACDF/allog/plate Method: Handout and Demonstration Taught to: Patient and Family Barriers: None Outcomes: independent Signature:Becki Rea RN Ana Rosa Abel MD - 08/08/2012 1223 EST This office note has been dictated. ANA ROSA MENDOZA MD documented in this encounter Procedure Notes Jordan Sainz MD - 08/13/2012 0601 EST [facility] [address] [place] [address] ELECTRODIAGNOSTIC MEDICINE CONSULTATION SERVICE DATE: 08/08/[address] Mendoza: Thank you for your referral of Tia Spain seen in electrodiagnostic consultation on 08/07/2012. This is a 37-year-old female complaints of intermittent aching in the feet, worse with weightbearing associated with some numbness and tingling and burning discomfort over the last two years. She has also noticed some numbness in her index and middle finger of her right hand. Examination showed what appeared to be fairly normal power, good sensation to pin distally, equivocal reduction of vibration and symmetrical reflexes. She did have some subjective hypesthesia in the distribution of her numbness in the right hand. She was evaluated today for possible mononeuropathies, possible cervical or lumbosacral radiculopathy, possible polyneuropathy. The right peroneal and posterior tibial motor conduction studies showed excellent amplitudes, distallatencies and conduction velocities. The right median and ulnar motor conduction studies showed excellent distal latencies, conduction velocities and amplitudes. F latencies were normal on the right per melchor, posterior tibial, median, and ulnar nerves. The right superficial peroneal, sural, median and ulnar sensory responses had normal latencies and amplitudes. The right median conduction study was done antidromically to the index finger. Needle examination performed in the right arm and right leg showed occasional fasciculations in the first dorsal interosseous pedis muscle of the right foot. No fibrillations were seen in any of the muscles tested. Voluntary motor unit potentials appeared to be mildly polyphasic and associated with slightly reduced recruitment in the right triceps. Extensor carpi ulnaris showed motor units that were slightly reduced in recruitment and demonstrated mildly increased duration with substantially increased polyphasia. The abductor hallucis, tibialis anterior, medial gastrocnemius, peroneus longus, biceps brachiae, pronator teres, abductor pollicis brevis muscles on the right were normal. Finally, the first dorsal interosseous manus muscle on the right showed mild reinnervation with simple motor units and no muscle membrane irritability. Interpretation: Nerve conduction studies were normal and distal foot muscles were normal on needle exam with no evidence of polyneuropathy. Needle examination of the right lower extremity showed no evidence of lumbosacral radiculopathy. Reinnervation in the right triceps and extensor carpi ulnaris, in this clinical setting, suggests the possibility of a right C7 root lesion, or much less likely, a proximal lesion of the right radial nerve. Finally, there is evidence of simple reinnervation in the first dorsal interosseous muscle of the right hand despite normal ulnar conductions and normal needle exam of the abductor pollicis brevis. This is a nonspecific finding, but could be consistent with an axonal right ulnar nerve lesion at an indeterminate site or a mild old or chronic and indolent right C8 root lesion. Summary: 1. No polyneuropathy. 2. No right lumbosacral radiculopathy. 3. Suggestive of a mild old or chronic indolent right C7 root lesion. 4. Reinnervation in the right first dorsal interosseous muscle. This is a nonspecific finding consistent with but not diagnostic of a mild right ulnar nerve lesion at an indeterminate site or a mild old or chronic and indolent right C8 root lesion. Sincerely yours, cc: Ana Rosa Mendoza MD Electronically Signed by Jordan Sainz MD 08/27/2012 08:25 Jordan Sainz MD - Jordan Sainz MD A - AN Job ID: SM Doc ID: [id number] Ext Doc ID: [id number] cc: documented in this encounter Consult Notes Ana Rosa Mendoza MD - 08/11/2012 0749 EST [facility] [address] [place] [address] CONSULTATION - 08/08/2012 PROBLEM: 1. 60% neck, 40% right arm pain. a. C7 radiculopathy. b. 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 2. History of low back and right leg pain -- resolved. a. Status post L5-S1 diskectomy. b. L5 isthmic spondylolisthesis. c. L5-S1 decompression and fusion in 2006. 3. Obesity. 4. A [id number] smoking history. a. Smoking cessation 2008. 5. Bipolar disorder. 6. Posttraumatic stress disorder. 7. History of narcotic addiction. a. Sobriety x8 years. 8. History of migraines. 9. Tarsal tunnel syndrome. 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 She continues to work 20 hours a week, which she has done for several years, and notes over the last several years she has had some intermittent cervicothoracic discomfort and medial border of the scapula pain, which has been generally tolerable until 5 months ago when she had the atraumatic increase in symptoms. She now complains of 60% neck pain, 40% pain into her arm involving the medial border of the scapula, posterolateral brachium, dorsal forearm, dorsal hand, as well as some discomfort along the latissimus region, with associated numbness and pain in those areas. She notes the symptoms are worsened particularly by moving. Nothing in particular seems to decrease them. She has undergone treatment with physical therapy, which was moderately helpful, traction, which was moderately helpful, and Lyrica, which was somewhat helpful. A TENS unit was somewhat helpful. An epidural gave her no relief at all. She denies fevers, chills, nightsweats, weight loss, or loss of bowel or bladder control. PAST MEDICAL HISTORY: Allergy to CODEINE, causing nausea and vomiting. MEDICATIONS: Cymbalta 90 mg q. day. Methylphenidate 20 mg 3 times a day. Lyrica 100 mg in the morning and at night, 50 mg midday. Topiramate 200 mg b.i.d. SOCIAL HISTORY: The patient is , lives with her spouse and children. She works 16 to 20 hoursa week as a assistant head cashier. She is not smoking, having quit 3 years ago. OBJECTIVE: Cooperative and appropriate woman. Neck has a limited range of motion in extension because of significant neck pain and scapular pain associated with that, minimal discomfort with forward flexion. Sensation is intact to light touch. She has breakaway strength of multiple muscle groups in the right arm but appears to be 5/5 all muscle groups in her left arm and her legs bilaterally. Trace biceps, triceps, brachioradialis. Negative Brittaney's. DIAGNOSTIC DATA: X-rays, AP, lateral, flexion-extension lateral, demonstrate loss of disk space height and osteophyte formation at C6-7, well preserved disk space heights and alignment at all other levels. MRI from outside facility demonstrates a right C6-C7 HNP and foraminal stenosis. EMG done by Dr Juliano Sainz shows no evidence of polyneuropathy, no lumbosacral radiculopathy. She doeshave a right C7 root lesion and some findings which would be consistent with a right C8 root involvement as well. ASSESSMENT: Woman with neck and right arm pain. Symptoms would be consistent with a C7 distribution,electrophysiologic evidence of a C7 radiculopathy. I discussed these findings with her, the natural history, which is a waxing and waning course but progressive improvement over a 1- to 2-year period of time. Options include expectant management, repeat epidural injection, alternative therapies, or consideration of surgery. The nature of surgery would be a C6-7 anterior cervical diskectomy and fusion. We discussed that surgery would have an 85% chance of good relief of symptoms, 15% no change, 1% or2% worsened symptoms. Risks and complications including infection, DVT, pulmonary emboli, , neur ologic loss, paralysis, pseudarthrosis, hardware failure or migration, increased neck pain, arm pain, swallowing difficulties and hoarseness, and blindness were all discussed. She understands these. Wediscussed hospital course and rehabilitation, and she wished to pursue surgical intervention after discussion with her friend. PLAN: C6-7 anterior cervical diskectomy and fusion with allograft and plate as an outpatient. Electronically Signed by Ana Rosa Mendoza MD 08/13/2012 08:14 Ana Rosa Mendoza MD - Ana Rosa Mendoza MD - Job ID: SM Doc ID: [id number] Ext Doc ID: [id number] cc: documented in this encounter Plan of Treatment Upcoming Encounters Date Type Specialty Care Team Description 06/25/2022 Telemedicine Neurology Ana Rosa Gloria MD PhD 1 [facility] [address] [place], [place] [address] (Wo rk) 09/06/2022 Procedure visit Pain Medicine Catalino Garrett M D [address] [facility] [address] [place] [address] (Wo rk) 09/21/2022 Office Visit Bariatrics Allen Thompson, ZHOUC [address] [facility], [address] [place], [place] [address] (Wo rk) documented as of this encounter Visit Diagnoses Diagnosis Cervicalgia - Primary documented in this encounter Care Teams Divisional Human Resources Director Relationship Specialty Start Date End Date Donna Mohr NP PCP - General 10/24/11 09/24/12 [address] [place], [place] [id number] documented as of this encounter
--- OUTSIDE RECORDS SUMMARY | 2022-06-15 07:55 | XMS_ITS | Encounter Summary ---
:1975 Author Organization [facility] Address [address] [place] [address] Care Team Providers Name Role Phone Juma Herrera MD Primary Care Provider Unavailable Reason for Visit Reason Onset Date Comments Appointment Related 09/25/2012 Encounter Details Date Type Department Care Team Description 09/25/2012 Telephone [facility] Ap Rea, RN Appointment Related Spine Program - [facility] [address] [place] [address] [place] [phone] Social History Tobacco Use Types Packs/Day Years [...] Telephone Encounter - Becki Rea RN - 09/25/2012 1101 EST Pt notified to arrive at the hospital at 6 am on 09/29/12 for surgery. Reminded pt to have nothing toeat or drink after midnight, to wash with the brushes the night before surgery and the morning of surgery. Becki Rea RN documented in this encounter Plan of Treatment Upcoming Encounters Date Type Specialty Care Team Description 06/25/2022 Telemedicine Neurology Kj Gloria MD PhD 1 [facility], [address] [place], [place] [address] (Wo rk) 09/06/2022 Procedure visit Pain Medicine Catalino Garrett M D [address] [facility] [address] [place] [address] (Wo rk) 09/21/2022 Office Visit Bariatrics Allen Thompson, PALizettC [address] [facility], [address] [place], [place] [address] (Wo rk) documented as of this encounter Visit Diagnoses Not on filedocumented in this encounter Care Teams Heating And Blending Supervisor Relationship Specialty Start Date End Date Juma Herrera MD PCP - General 09/25/12 12/07/18 [address] [place] [address] documented as of this encounter
--- OUTSIDE RECORDS SUMMARY | 2022-06-15 07:55 | XMS_ITS | Encounter Summary ---
:1975 Author Organization [facility] Address [address] [place] [address] Care Team Providers Name Role Phone Donna Mohr NP Primary Care Provider Reason for Referral Radiology Services (Routine/Next Available) - Closed Specialty Diagnoses / Procedures Referred By Contact Refer red To Contact Diagnoses Foot pain Catalino Keys MD Procedures FOOT 3 OR MORE VIEWS [address] [place] [address] Referral ID Status Reason Start Date Expiration Date Visits Requ ested Visits Authorized [id number] Closed 01/21/2012 1 1 Reason for Visit Reason Comments Follow-up Persistent pain s/p right ta rsal tunnel release Encounter Details Date Type Department Care Team Description 01/21/2012 Office Visit [facility] Catalino Keys Tarsemy delong tunnel syndrome of right side; Foot & Ankle Program - MD Charmaine Lumbar radiculopathy; [address] [facility] Foot pain [address] [facility] [place], [place] [facility] [id number] Social History Tobacco Use Types Packs/Day Years [...] encounter Progress Notes Catalino Keys MD - 01/21/2012 1706 EDT Diagnosis: 1. Tarsal tunnel syndrome of right side (355.5) AIRCAST SHORT WALKING BOOT (AIRCAST BOOT) 2. Lumbar radiculopathy (724.4) 3. Foot pain (729.5) FOOT 3 OR MORE VIEWS, AIRCAST SHORT WALKING BOOT (AIRCAST BOOT) Subjective: Tia Spain is being seen today for Follow-up . She was originally sent as a consultation from Dr. Lindsay Ms Spain comes in today for followup of her right foot. She is a little less than 3 months out from a right tarsal tunnel release and when she has been back at work she has had after a couple of hours significant swelling, pain and burning in her entire right foot. This has been getting worse the moreshe works. She is also beginning to have similar symptoms on her left foot. Pain Vitals: Pain Location: Ankle Numeric Pain Level (Scale 1-10): 10 Pain in another site? : No Pain Quality: Burning;Shooting Pain Duration: Continuous (with intermittent sharp shooting pain) Pain Aggravating Factors: movement Outpatient Prescriptions Prior [...] Reactions ??? Codeine Objective: General : alert, mild distress Gait: Antalgic. Neurovascular: paraesthesias for the right MPN and deep peroneal nerve Tenderness:On the right, she has a positive percussion sign in the tarsal tunnel with radiation along the medial plantar nerve. She on the right has tenderness as well over the first, second and third TMT joints dorsally. On the left foot, she has a negative percussion sign in the tarsal tunnel but does have tenderness over the first and second TMT joints. Swelling: right: Moderate over the tarsal tunnel Imaging: Foot, bilateral, standing yes, result (on independent viewing and evaluation) very mild djdin the Lisfranc joints bilaterally - essentially normal Assessment: Ms Spain is continuing to have significant symptoms from her tarsal tunnel release. However, this does not explain the paresthesias on the dorsal part of her foot nor her circumferential foot swelling and paresthesias. It would appear more likely that she is getting some inflammation at the Lisfranc joints bilaterally that may be feeding into her symptomatology. To better address both sets of issues,will put her into bilateral walking boots to give her mid-feet as well as the tarsal tunnel on the right a rest. We will see her back in 3 weeks' time for reevaluation. In the meantime, we will keep her out of work for one week followed by two more weeks at half time. Plan: 1. Tarsal tunnel syndrome of right side (355.5) AIRCAST SHORT WALKING BOOT (AIRCAST BOOT) 2. Lumbar radiculopathy (724.4) 3. Foot pain (729.5) FOOT 3 OR MORE VIEWS, AIRCAST SHORT WALKING BOOT (AIRCAST BOOT) Other Orders Placed This Visit Procedures ??? AIRCAST SHORT WALKING BOOT ??? FOOT 3 OR MORE VIEWS Immobilization: walking boot Activities: Activity as tolerated Medications: none Imaging at next visit::none Follow up: Return in about 3 weeks (around 02/11/2012). Cc: Referring Provider - Dr. Lindsay PCP - Donna Mohr documented in this encounter Procedure Notes LABORATORY TECHNICAL SPECIALIST, SCAN 2 - 03/31/2012 1004 EDTAssociated Order(s): ORDERS - SCANNED documented in this encounter Plan of Treatment Upcoming Encounters Date Type Specialty Care Team Description 06/25/2022 Telemedicine Neurology Kj Gloria MD PhD 1 [facility], [address] [place], [place] [address] (Wo rk) 09/06/2022 Procedure visit Pain Medicine Catalino Garrett M D [address] [facility] [address] [place] [address] (Wo rk) 09/21/2022 Office Visit Bariatrics Allen Thompson PA-C [address] [place] [address] [facility], [facility], [address] [place], [place] [address] (Wo rk) documented as of this encounter Procedures Procedure Name Priority Date/Time Associated Diagnosis Comme nts ORDERS - SCANNED 03/31/2012 10:04 Results for this EDT procedure are i n the results section. FOOT 3 OR MORE Routine 01/21/2012 14:13 Foot pain Results f or this VIEWS EDT procedure are i n the results section. documented in this encounter Results ORDERS - SCANNED (03/31/2012 10:04 EDT) Specimen Narrative This result has an attachment that is no t available. Transcriptions LABORATORY TECHNICAL SPECIALIST, SCAN 2 - 03/31/2012 10:04 EDT FOOT 3 OR MORE VIEWS (01/21/2012 14:13 [...] Organization Address City/State/ZIP Code Phon e Number [facility] documented in this encounter Visit Diagnoses Diagnosis Tarsal tunnel syndrome of right side Tarsal tunnel syndrome Lumbar radiculopathy Thoracic or lumbosacral neuritis or radi culitis, unspecified Foot pain Pain in limb documented in this encounter Discontinued Medications Medication Sig Discontinue Reason Start Date End Date hydrocodone-acetaminophe Take 1 Tab by mouth 2 01/21/2012 n (LORTAB) 7.5-500 mg every 4 hours as per tabletIndications: needed for Pain. Tarsal tunnel syndrome of right side documented as of this encounter Historical Medications This list may reflect changes made after this encounter. Medication Sig Dispensed Refills Start Date End Date ibuprofen (MOTRIN) 200 mg Take 600 mg by mouth 0 09/29/2012 tablet every 6 hours. added in this encounter Orders General Supply Count Last Ordered Date First Ordered Date AIRCAST SHORT WALKING BOOT (AIRCAST BOOT) 1 2011 documented in this encounter Care Teams Tire Installer Relationship Specialty Start Date End Date Donna Mohr, GIULIA PCP - General 10/24/11 09/24/[address] [place] [place] [address] documented as of this encounter
--- OUTSIDE RECORDS SUMMARY | 2022-06-15 07:55 | XMS_ITS | Encounter Summary ---
:1975 Author Organization [facility] Address [address] [place] [address] Care Team Providers Name Role Phone Alejandra Herrera MD Primary Care Provider Unavailable Encounter Details Date Type Department Care Team Description 09/29/2012 Hospital Encounter [facility] Ana Rosa Mendoza MD (Primary Dx) Services- [address] [phone] [place] [address] Social History Tobacco Use Types [...] Sign Reading Time Taken Comments Blood Pressure 137/80 09/29/2012 1145 EST Pulse - - Temperature 35.9 ??C (96.6 ??F) 09/29/2012 1145 EST Respiratory Rate 13 09/29/2012 1100 EST Oxygen Saturation 93% 09/29/2012 1130 EST Inhaled Oxygen Concentration - - Weight 122.9 kg (271 lb) 09/22/2012 0935 EST Height 172.7 cm (5' 8) 09/22/2012 0935 EST Body Mass Index 41.21 09/22/2012 0935 EST documented in this encounter Discharge Summaries Marques Smith MD - 09/29/2012 0937 EST Discharge Summary Chief Complaint/Reason for Admission: Neck and arm pain Admitted Via: DOSA Principal/Final Diagnosis: C6-C7 degenerative disc disease and C6 radiculopathy Active Problems: Cervicalgia Principal Procedure: C6-C7 ACDF Date: 09/29/2012 Condition at Discharge: Improved or Stable Assessment at Discharge: See daily progress note from 09/29/2012 Hospital Course: Tia Spain was admitted on 09/29/2012 for above diagnoses. The patient toleratedthe procedure well. The patient recovered in PACU. After meeting the above discharge criteria, she was discharged home in stable condition on 09/29/2012. The patient will follow up with Ana Rosa Mendoza MD as scheduled or will call for an appointment. cc: ALEJANDRA Mendoza MD Discharge Summary Completed: aissatou Smith M.D. PGY-3 Orthopaedic Resident 09/29/2012 9:38 Pager: [phone] documented in this encounter Discharge Instructions InstructionsMarques Smith MD - 09/29/2012 Dr. Mendoza outpatient instructions general Keep wound covered for two- three days. You may shower with the dressing on, and get the wound wet once it is off. Keep steri strips intact until they fall off on their own. You may do any activities as tolerated, there are no restrictions after this surgery. 10 lb lifting limit. If you've been given a neck collar, it is for your comfort and not required. Follow up Spine as scheduled. Contact the office with any questions. Future Appointments Date Time Provider Department Center 10/21/2012 12:45 Ana Rosa Mendoza MD Spine None 11/05/2012 13:30 Zachery Walters MD [facility] Neuro None 12/09/2012 13:30 Ana Rosa Mendoza MD Spine None Please do not take antiinflammatories (motrin, ibuprofen, etc) unless you have been told to. Contact the office immediately for any wound drainage or a severe headache when you stand up that goes away when you sit down. [facility] Patient Instructions Cervical Discectomy: What to Expect at Home Your Recovery You can expect your neck to feel stiff or sore after surgery. This should improve in the weeks aftersurgery. But it may take 4 to 6 months for you to get better completely. You may have trouble sitting or standing in one position for very long and may need pain medicine in the weeks after your surgery. It may take 4 to 6 weeks to get back to your usual activities, but it may depend on what kind of surgery you had. This care sheet gives you a general idea about how long it will take for you to recover. But each person recovers at a different pace. Follow the steps below to get better as quickly as possible. How can you care for yourself at home? Activity Rest when you feel tired. Getting enough sleep will help you recover. Try to walk each day. Start by walking a little more than you did the day before. Bit by bit, increase the amount you walk. Walking boosts blood flow and helps prevent pneumonia and constipation. Walking may also decrease your muscle soreness after surgery. There are no formal limitations on your activity. Use common sense. Medicines Take pain medicines exactly as directed. If the doctor gave you a prescription medicine for pain, take it as prescribed. If you are not taking a prescription pain medicine, ask your doctor if you can take an cenc-[id number] medicine. Do not take two or more pain medicines at the same time unless the doctor told you to. Many pain medicines have acetaminophen, which is Tylenol. Too much acetaminophen (Tylenol) can be harmful. If your doctor prescribed antibiotics, take them as directed. Do not stop taking them just because you feel better. You need to take the full course of antibiotics. If you think your pain pill is making you sick to your stomach: Take your pills after meals (unless your doctor has told you not to). Ask your doctor for a different pain pill. Exercise Do exercises as instructed by your doctor or physical therapist to improve your strength and flexibility. Follow-up care is a grace part of your treatment and safety. Be sure to make and go to all appointments, and call your doctor if you are having problems. It???s also a good idea to know your test resultsand keep a list of the medicines you take. When should you call for help? Call 911 anytime you think you may need emergency care. For example, call if: You pass out (lose consciousness). You have sudden chest pain and shortness of breath, or you cough up blood. You cannot swallow. You have severe pain in your neck or back. Call your doctor now or seek immediate medical care if: You have pain that does not get better after you take pain pills. You have loose stitches, or your incision comes open. You have blood or fluid draining from the incision. Difficulty swallowing that is getting worse instead of better. You have signs of infection, such as: Increased pain, swelling, warmth, or redness. Red streaks leading from the site. Pus draining from the site. Swollen lymph nodes in your neck or armpits. A fever. You have severe pain in your arms. You have new or increased weakness or numbness in your arms. Where can you learn more? Go to www.[employer].net/fahc Enter R489 in the search box to learn more about Cervical Discectomy: What to Expect at Home. ?? 2005 - 2008 [employer]. Care instructions adapted under license by [facility], [facility] . This care instruction is for use with your licensed healthcare professional. If youhave questions about a medical condition or this instruction, always ask your healthcare professional. [employer] disclaims any warranty or liability for your use of this information documented in this encounter Medications at Time [...] mg by 0 09/07/2015 mouth as needed. cholecalciferol, Vitamin D3, Take 1,000 Units 0 02/03/2015 1,000 unit tablet by mouth 2 times daily. [place]-3 Fatty Acids-Vitamin Take 1,000 mg by 0 02/03/2015 E (FISH OIL) 1,000 mg cap mouth 2 times daily. oxycodone (ROXICODONE) 5 mg Take 1-2 Tabs by 60 Tab 0 11/05/2012 immediate release tablet mouth every 4 hours as needed for Pain. prochlorperazine (COMPAZINE) Take 1 Tab by 10 Tab 2 09/0308/31/2015 10 mg tablet mouth every 6 hours as needed for Nausea. topiramate (TOPAMAX) 100 mg Take 200 mg by 0 02/03/2015 tablet mouth 2 times daily. documented as of this encounter Ordered Prescriptions Prescription Sig Dispensed Refills Start Date End Date prochlorperazine (COMPAZINE) Take 1 Tab by 10 Tab 2 09/0308/31/2015 10 mg tablet mouth every 6 hours as needed for Nausea. oxycodone (ROXICODONE) 5 mg Take 1-2 Tabs by 60 Tab 0 11/05/2012 immediate release tablet mouth every 4 hours as needed for Pain. documented in this encounter Discharge Disposition Disposition Code Departure Means Destination Home or Self Care documented in this encounter Progress Notes Fernando Degroot - 09/22/2012 0934 EST Tia Spain has been instructed as follows regarding medication administration for the day of thescheduled procedure. Date of Surgery: 09/29/2012 Instructions for Taking Medications Day of Surgery Medication Last Dose Hold DOS Take DOS [place]-3 Fatty Acids-Vitamin E (FISH OIL) 1,000 mg cap 09/21/2012 cholecalciferol, Vitamin D3, 1,000 unit tablet 09/21/2012 pregabalin (LYRICA) 50 mg capsule yes ibuprofen (MOTRIN) 200 mg tablet 09/21/2012 methylphenidate (RITALIN SR; METADATE ER; METHYLIN ER) 20 mg SR tablet yes ACETAMINOPHEN (TYLENOL ORAL) Yes if needed topiramate (TOPAMAX) 100 mg tablet yes duloxetine (CYMBALTA) 30 mg capsule yes documented in this encounter H&P Notes HEAD OF MARKETING, KAYKAY 2 - 10/02/2012 1428 EST Ana Rosa Abel MD - 09/29/2012 0714 EST The preoperative history and physical which was performed within 30 days of this procedure has been reviewed and the clinically appropriate elements of the physical examination havebeen repeated. There are no changes to the documented history and physical or if so such changes aredocumented below ANA ROSA MENDOZA MD 09/29/2012 7:14 documented in this encounter Procedure Notes HEAD OF MARKETING, SCAN 2 - 10/02/2012 1428 ESTAssociated Order(s): ECG REPORT - SCANNED documented in this encounter Nursing Notes HEAD OF MARKETING, SCAN 2 - 10/02/2012 1428 EST documented in this encounter OR Notes Anesthesia Preprocedure Evaluation - HEAD OF MARKETING, SCAN 2 - 10/06/2012 1406 EST R PreOp - HEAD OF MARKETING, SCAN 2 - 10/02/2012 1428 EST R Surgeon - Ana Rosa Mendoza MD - 09/29/2012 1316 EST OPERATIVE REPORT SERVICE DATE: 09/29/2012 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 POSTOPERATIVE DIAGNOSIS: C6-7 HNP. PROCEDURE: C6-7 anterior cervical diskectomy, interbody fusion with structural allograft and anterior Synthes plate. SURGEON: Ana Rosa Mendoza MD JIGSAW OPERATOR: Marques Smith MD ANESTHESIA: General. ESTIMATED BLOOD LOSS: 10 mL. INDICATIONS: The patient is a 37-year-old woman with neck and right arm pain unresponsive to multiple nonoperative measures. Radiographs demonstrated a soft tissue disk herniation at C6-7 with root impingement consistent with her clinical findings and an EMG consistent with C7 radiculopathy. After unde rstanding the options as well as risks and complications, she elected to pursue surgical intervention. COMPLICATIONS: None. NARRATIVE: The patient was brought to the operating room. After successful induction of general anesthesia, was placed supine on a well-padded operating room table in a horseshoe headrest. Eyes, ears, nose, shoulders, elbows, hands, feet, knees, and genitals were all protected with no compression. Lock-Wells tongs were applied with 10 pounds of traction. She was prepped and draped in a sterile fashion. A transverse incision was made centered over the C6-7 interspace anteriorly, carried sharply down through skin, and subcutaneous tissue split bluntly, careful blunt dissection carried out to the middle cervical fascia, trachea and esophagus retracted to the right, carotid sheath to the left. Self-retaining retractors were placed beneath the longus colli muscles. A marker was placed at the C6-7 interspace and a lateral x-ray taken confirming our position. A 15 blade was then used to incise the annulus, pituitary used to remove disk material, straight and angled Nathalia curettes used to remove cartilaginous end plate, which was extracted with a pituitary, a vertebral body web analytics developer placed in the interspace. A rent in the posterior annulus was clearly identified with a herniated nucleus pulposus.This was grasped with the pituitary and extracted using the rent. Two mm Kerrisons were used to completely remove the posterior longitudinal ligament and posterior annulus as well as resection of the posterior aspect of the endplate of C6 and C7 and perform bilateral foraminotomies, following which the dura was directly visualized and the nerve roots and they were completely free. The endplate was then shaped with a 4 mm lucretia, sequential sizers placed, and an 8 mm anterior lordotic structural allograft was then placed anteriorly. An anterior Synthes plate was then shaped into lordosis. Screws passed through the plate into the body, locking nuts applied, and a lateral x-ray taken confirming excellent position. The wound was irrigated copiously with bacitracin irrigation, closed in layers with 2-0 Vicryl, 3-0 Monocryl in a running subcuticular stitch. Steri- Strips were applied. Sterile gauze dressing. The patient was transferred to the recovery room in good condition. Unless otherwise noted, there were no complications, no blood loss, no cultures obtained, no specimens removed, and no drains retained. Ana Rosa Mendoza MD 09 15 AM / Ana Rosa Mendoza MD mt Confirmation: [id number] Dictation ID: [id number] nesthesia Procedure Notes - HEAD OF MARKETING, SCAN 2 - 09/29/2012 0942 EST R PreOp - HEAD OF MARKETING, SCAN 2 - 09/29/2012 0940 EST documented in this encounter Miscellaneous Notes Scanned Note-Null - HEAD OF MARKETING, SCAN 2 - 10/02/2012 1428 EST canned Note- Null - HEAD OF MARKETING, SCAN 2 - 10/02/2012 1428 EST canned Note- Null - HEAD OF MARKETING, SCAN 2 - 10/02/2012 1428 EST nesthesia Post-Eval - Gene Triplett H - 09/29/2012 1113 EST Post Anesthesia Evaluation Note Date of Service: 09/29/2012 Tia Spain, a 37 y.o. year old female has received General Anesthesia She has been evaluated, assessed and discharged from anesthesia care with stable cardiorespiratory function and alert mental status. The last set of recorded vital signs and pain rating were reviewed: Temp: 35.7 ??C (96.3 ??F) (09/29/12 1045), Heart Rate: 99 BPM (09/29/12 1100), BP: 146/82 mmHg (09/29/12 1100), Resp: 13 (09/29/12 1100), SpO2: 95 % (09/29/12 1100),Numeric Pain Level (Scale 1-10): 10 Tia Spain participated in this evaluation unless otherwise noted. Her pain, nausea and vomitinghave been managed and her body temperature and fluid balance have been restored. Additional monitoring and assessment needs have been addressed. If present, any postoperative events are documented below. If the regional block for postoperative analgesia was intended to last greater than 48 hours, Suzi Spain will be followed by the Acute Pain Service. GENE TRIPLETT MD 09/29/2012 11:13 rief Op Note - Marques Smith MD - 09/29/2012 0977 EST Orthopedic Surgery BRIEF OPERATIVE NOTE Date: 09/29/2012 Sales Force Administrator : Ana Rosa Mendoza MD Aquaculture Program Director : Octavio Smith M.D. Preoperative Diagnosis : C6-C7 degenerative disc disease and C6 radiculopathy Postoperative Diagnosis : same Procedure : C6-C7 ACDF Anesthesia : General Local: 0 cc of 0.5% bupivicaine Findings : see dictated note Fluids : IVF?? 1,000??cc U/O: NR EBL: <50 cc Tourniquet Time: NA Implants : 1 Synthes anterior cervical plate, 4 cervical screws. Specimen: None Complications : None Xray's reviewed: Yes Condition : Stable Dispo : Stable and transferred to the PACU ? Plan: Activity as tolerated ROM: as tolerated Abx: chelsea-op cefazolin DVT Prophylaxis: Ambulate Closed with 3-0 Monocril and steri strips. Regular diet Marques Smith M.D. 09/29/2012 9:33 Pager: [phone] canned Note-Null - HEAD OF MARKETING, SCAN 2 - 09/29/2012 0601 EST canned Note- Null - HEAD OF MARKETING, SCAN 2 - 09/29/2012 0601 EST canned Note- Null - HEAD OF MARKETING, SCAN 2 - 09/29/2012 0601 EST documented in this encounter Plan of Treatment Upcoming Encounters Date Type Specialty Care Team Description 06/25/2022 Telemedicine Neurology Ana Rosa Gloria MD PhD [address] [facility] [address] [place], [place] [address] (Wo rk) 09/06/2022 Procedure visit Pain Medicine Catalino Garrett M D [address] [facility] [address] [place] [address] (Wo rk) 09/21/2022 Office Visit Bariatrics Allen Thompson PA-C [address] [facility], [facility], [address] [place] [address] (Wo rk) documented as of this encounter Procedures Procedure Name Priority Date/Time Associated Diagnosis Comme nts ECG REPORT - 10/02/2012 14:28 Results for this SCANNED EST procedure are i n the results section. CERVICAL SPINE 1 STAT 09/29/2012 9:32 EST Resu lts for this VIEW procedure are i n the results section. CERVICAL SPINE 1 Routine 09/29/2012 9:05 EST Resu lts for this VIEW procedure are i n the results section. CERVICAL SPINE 1 STAT 09/29/2012 8:23 EST Resu lts for this VIEW procedure are i n the results section. CERVICAL SPINE 1 STAT 09/29/2012 8:00 EST Resu lts for this VIEW procedure are i n the results section. TYPE AND SCREEN Routine 09/29/2012 7:06 EST Resul ts for this procedure are i n the results section. documented in this encounter Results ECG REPORT - SCANNED (10/02/2012 14:28 EST) Specimen Narrative 10/02/2012 14:46 EST Procedure Note HEAD OF MARKETING, SCAN 2 - 10/02/2012 14:28 EST CERVICAL SPINE 1 VIEW (09/29/2012 9:32 EST) Anatomical Region Laterality Modality Other Specimen Narrative [facility] - 09/30/2012 17:06 EST CERVICAL SPINE ??Sep 29, 2012 09:32:00 AM SIGNS AND SYMPTOMS/COMMENTS: ??Disc disp l S/P C6-7 ACDF ??Routine post op for no count R/O FB Comparison: Less than one hour prior. Findings: Single portable AP view of the cervical spine shows anterior cervical disc fusion hardware at C6-C7. An endotr acheal tube is in place. There is no radiopaque foreign body. There is a density in the right lung ape x, which may represent and perioperative atelectasis.. However, fol lowup PA lateral chest radiographs are advised to exclude a mas s.. This was relayed to Dr. Marques sweeney via the OR nurse at 1:15pm I have personally reviewed the images an d the above interpretation and agree with the findings. Procedure Note Ye Remy MD - 09/30/2012 CERVICAL SPINE Sep 29, 2012 09:32:00 AM SIGNS AND SYMPTOMS/COMMENTS: Disc displ S/P C6-7 ACDF Routine post op for no count R/O FB Comparison: Less than one hour prior. Findings: Single portable AP view of the cervical spine shows anterior cervical disc fusion hardware at C6-C7. An endotr acheal tube is in place. There is no radiopaque foreign body. There is a density in the right lung ape x, which may represent and perioperative atelectasis.. However, fol lowup PA lateral chest radiographs are advised to exclude a mas s.. This was relayed to Dr. Marques sweeney via the OR nurse at 1:15pm I have personally reviewed the images an d the above interpretation and agree with the findings. Performing Organization Address City/State/ZIP Code Phon e Number [facility] CERVICAL SPINE 1 VIEW (09/29/2012 9:05 EST) Anatomical Region Laterality Modality Other Specimen Narrative [facility] - 09/29/2012 10:53 EST Cervical Spine ??Sep 29, 2012 09:05:00 AM Signs and Symptoms/Comments: ??Disc disp l C6-7 ACDF. Findings: A single lateral radiograph of the cervical spine, crosstable from the O.R., demonstrates a nterior spinal fusion plate C6-C7. Intervertebral disc graft is iden tified at C6-C7. The C7 vertebra is mostly obscured by shoulder shadows. Within this limitation, the fused segment appears in anatomic alignment. Several metallic yfn are identified. Endotra cheal tube and temperature probe are identified within the anterior soft tissues. No other surgical radiopaque material is identifi ed. Procedure Note 09/29/2012 Cervical Spine Sep 29, 2012 09:05:00 AM Signs and Symptoms/Comments: Disc displ C6-7 ACDF. Findings: A single lateral radiograph of the cervical spine, crosstable from the O.R., demonstrates a nterior spinal fusion plate C6-C7. Intervertebral disc graft is iden tified at C6-C7. The C7 vertebra is mostly obscured by shoulder shadows. Within this limitation, the fused segment appears in anatomic alignment. Several metallic yfn are identified. Endotra cheal tube and temperature probe are identified within the anterior soft tissues. No other surgical radiopaque material is identifi ed. Performing Organization Address City/State/ZIP Code Phon e Number [facility] CERVICAL SPINE 1 VIEW (09/29/2012 8:23 EST) Anatomical Region Laterality Modality Other Specimen Narrative [facility] - 09/29/2012 9:56 EST CERVICAL SPINE ??Sep 29, 2012 08:23:00 AM Signs and Symptoms/Comments: ??Disc disp l C6-7 ACDF Comparison: Radiographs cervical spine D ec2011. Findings: Single crosstable lateral view of the cervical spine demonstrates a probe approaching anterio rly to the disc space of C6 and C7. The above findings were called out to th e OR and the attending present agreed with the assessment. I have personally reviewed the images an d the above interpretation and agree with the findings. Procedure Note Estrada Seymour MD - 09/29/2012 CERVICAL SPINE Sep 29, 2012 08:23:00 AM Signs and Symptoms/Comments: Disc displ C6-7 ACDF Comparison: Radiographs cervical spine D ec2011. Findings: Single crosstable lateral view of the cervical spine demonstrates a probe approaching anterio rly to the disc space of C6 and C7. The above findings were called out to th e OR and the attending present agreed with the assessment. I have personally reviewed the images an d the above interpretation and agree with the findings. Performing Organization Address City/[facility]/ZIP Code Phon e Number [facility] CERVICAL SPINE 1 VIEW (09/29/2012 8:00 EST) Anatomical Region Laterality Modality Other Specimen Narrative [facility] - 09/29/2012 16:32 EST CERVICAL SPINE ONE VIEW September 29, 2012 Indication: Disc displacement C6-C7 ACDF. Comparison: August 08, 2012. Technique: Lateral view of the cervical spine was o btained. Findings: There is a needle present in the soft ti ssues anteriorly. Its tip is directed at the C5 vertebral body level. Procedure Note 09/29/2012 CERVICAL SPINE ONE VIEW September 29, 2012 Indication: Disc displacement C6-C7 ACDF. Comparison: August 08, 2012. Technique: Lateral view of the cervical spine was o btained. Findings: There is a needle present in the soft ti ssues anteriorly. Its tip is directed at the C5 vertebral body level. Performing Organization Address [facility]/ZIP Code Phon e Number [facility] RAD[facility] TYPE AND SCREEN (09/29/2012 7:06 EST) Pathologist Sig nature ABO A [facility] Rh Factor Positive [facility] Antibody Screen NegativeComment: [facility] SPECIMEN EXPIRES AT 23:59 ON 10/02/2012 Specimen Performing Organization Address City/State/ZIP Code Phon e Number [facility] [address] [place] [address] SERVICES [facility] [address] [place] [address] documented in this encounter Visit Diagnoses Diagnosis Cervicalgia - Primary documented in this encounter Administered Medications Inactive Administered Medications - up to 3 most recent administrations Medication Order MAR Action Action Date Dose Rate Site ceFAZolin (ANCEF) syringe 2 g Given by Other 09/29/2012 7:50 EST 2 g 2 g, intravenous, Administer over 10 Minutes, PRE-OP ONCE, 1 dose, On Sat09/29/12 at 0700, Routine, Pre Op Day of Surgery fentanyl citrate (PF) 50 mcg/mL injection Given 09/29/2012 10:41 EST 25 mcg 25-100 mcg 25-100 mcg, intravenous, EVERY 5 MIN PRN, Starting on Sat09/29/12 at 0915, Until Sat09/29/12 at 1356, Pain, Routine, Recovery (only) Given 09/29/2012 10:30 EST 25 mcg Given 09/29/2012 9:59 EST 50 mcg HYDROmorphone (PF) (DILAUDID) 1 mg/mL injection Given 09/29/2012 10:42 EST 0.3 mg 0.2-1 mg 0.2-1 mg, intravenous, EVERY 10 MINUTES PRN, Starting on Sat09/29/12 at 0915, Until Sat09/29/12 at 1356, Pain, Routine, Recovery (only) Given 09/29/2012 10:31 EST 0.4 mg Given 09/29/2012 9:59 EST 0.3 mg lactated ringers (LR) infusion New Bag 09/29/2012 6:50 EST 100 mL/hr at 100 mL/hr, intravenous, CONTINUOUS, Starting on Sat09/29/12 at 0700, Until Sat09/29/12 at 1356, Routine, Pre Op Day of Surgery oxycodone (ROXICODONE) immediate release tablet Given 09/29/2012 10:46 EST 10 mg 5 mg 5 mg, oral, PRN, 2 doses, Starting on Sat09/29/12 at 0915, Until Sat09/29/12 at 1356, Pain, x 2 doses, Routine, Recovery (only) documented in this encounter Discontinued Medications Medication Sig Discontinue Reason Start Date End Date duloxetine (CYMBALTA) 30 Take 30 mg by Therapy completed 09/22/2012 mg capsule mouth 2 times daily. indomethacin (INDOCIN SR) Take 1 Cap by Therapy completed 2 09/22/2012 75 mg SR capsule mouth daily. Hydrocodone-Acetaminophen Take by mouth 0 09/29/2012 (VICODIN ES) 7.5-300 mg every 6 hours. Tab ibuprofen (MOTRIN) 200 mg Take 600 mg by 09/29/2012 tablet mouth every 6 hours. documented as of this encounter Historical Medications This list may reflect changes made after this encounter. Medication Sig Dispensed Refills Start Date End Date Hydrocodone-Acetaminophen Take by mouth every 0 09/29/2012 (VICODIN ES) 7.5-300 mg 6 hours. Tab cholecalciferol, Vitamin Take 1,000 Units by 0 02/03/2015 D3, 1,000 unit tablet mouth 2 times daily. [place]-3 Fatty Take 1,000 mg by 0 02/03 Acids-Vitamin E (FISH mouth 2 times daily. OIL) 1,000 mg cap added in this encounter Active and Recently Administered Medications Times are shown in EST. Scheduled Medication Order 09/27/2012 09/28/2012 09/29/2012 ceFAZolin (ANCEF) syringe 2 g (COMPLETED) 0750 (Given by Other - Provider: Joya Troy RN - Comment: Given per anesthesia provider.) 2 g, intravenous, for 10 Minutes, PRE-OP ONCE, 1 dose, Sat at 0700 Continuous Medication Order 09/27/2012 09/28/2012 09/29/2012 lactated ringers (LR) infusion (CANCELED) 0650 (New Bag - Provider: Lyla Van RN) at 100 mL/hr, intravenous, CONTINUOUS, S tarting Sat09/29/12 at 0700, Until Sat09/29/12 at 1356 PRN Medication Order 09/27/2012 09/28/2012 09/29/2012 fentanyl citrate (PF) 50 mcg/mL injection 25-100 mcg (CANCELED) 0959 (Given - Provider: Angela Hendricks RN)1030 (Given - Provider: Angela Hendricks RN)1041 (Given - Provider: Angela Hendricks RN) 25-100 mcg, intravenous, EVERY 5 MIN PRN , Starting Sat09/29/12 at 0915, Until Sat09/29/12 at 1356, Pain HYDROmorphone (PF) (DILAUDID) 1 mg/mL injection 0.2-1 mg (CANCEL ED) 0959 (Given - Provider: Angela Hendricks RN)1031 (Given - Provider: Angela Hendricks RN)1042 (Given - Provider: Angela Hendricks RN) 0.2-1 mg, intravenous, EVERY 10 MINUTES PRN, Starting Sat09/29/12 at 0915, Until Sat09/29/12 at 1356, Pain oxycodone (ROXICODONE) immediate release tablet 5 mg (CANCELED) 1046 (Given - Provider: Angela Hendricks RN) 5 mg, oral, PRN, 2 doses, Starting Sat at 0915, Until Sat09/29/12 at 1356, Pain, x 2 doses documented in this encounter Orders Medications Ordered That Might Not Have Count Last Ord ered Date First Ordered Date Been Administered atropine 0.1 mg/mL 10 mL syringe 0.5 mg 1 09/29/19 13 lactated ringers (LR) infusion 09/29/2012 naloxone (NARCAN) injection 0.2 mg 1 09/29/2012 Nursing Count Last Ordered Date First Ordered Date INSERT PERIPHERAL IV 1 09/29/2012 Admission Count Last Ordered Date First Ordered Date STATUS: INPATIENT DOSA/DOPA DAY OF 09/29/2012 SURGERY/PROCEDURE ADMISSION Transfer Count Last Ordered Date First Ordered Date NOTIFY PPS PACU PATIENT DISCHARGE 1 09/29/2012 NOTIFY PPS PATIENT ARRIVAL IN PACU 1 09/29/2012 Discharge Count Last Ordered Date First Ordered Date DISCHARGE PATIENT 1 09/29/2012 documented in this encounter Care Teams Food Safety Officer Relationship Specialty Start Date End Date Alejandra Herrera MD PCP - General 09/25/12 12/07/18 [address] [place] [address] documented as of this encounter
--- OUTSIDE RECORDS SUMMARY | 2022-06-15 07:55 | XMS_ITS | Encounter Summary ---
:1975 Author Organization [facility] Address [address] [place] [address] Care Team Providers Name Role Phone Onur Donna PLATT Primary Care Provider Reason for Visit Reason Comments Neck Pain Encounter Details Date Type Department Care Team Description 04/03/2012 Office Visit [facility] Starr Hart, Tar chuy tunnel syndrome of right side; Spine Program - PA-C Idiopathic p [place]ipheral [place] [address] Social History Tobacco Use Types [...] - - Weight 136.1 kg (300 lb) 04/03/2012 1457 EDT Height 172.7 cm (5' 8) 04/03/2012 1457 EDT Body Mass Index 45.61 04/03/2012 1457 EDT documented in this encounter Ordered Prescriptions Prescription Sig Dispensed Refills Start Date End Date pregabalin (LYRICA) 25 mg Take 2 Caps by 60 Cap 2 201105/29/2012 capsuleIndications: Tarsal mouth 3 times tunnel syndrome of right daily. side, Idiopathic peripheral neuropathy documented in this encounter Progress Notes Starr Hart, MARGARITA - 04/03/2012 1611 EDT Tia Spain is being seen as a consultation from Dr. Juarez. Chief Complaint Patient presents with ??? Neck Pain Diagnoses of Tarsal tunnel syndrome of right side and Idiopathic peripheral neuropathy were pertinent to this visit. NEIL Weber is a 36-year-old female that presents with right lateral neck pain extending into the right scapula into the right axilla, right anterior chest, through the right triceps, through the volar forearm with numbness through the forearm and numbness extending into the thumb, particularly the index finger and middle fingers. She has also been experiencing weakness in her right arm. Her neck and arm pain has been persistent over the last week and a half. She does note over the past two years a knot in her right medial scapula. She currently rates her pain an 8/10, at worst a 10, and at best a 7. She describes the pain as an aching, burning and stabbing sensation. Her pain is increased with any sort of cervical and right arm movement. She has been to 3 PT visits so far. She has not seen a chiropractor, done any acupuncture or had anyinjections in her cervical spine. She is status post an L5-S1 diskectomy and fusion by Dr Child in 2006. She continues to experience some back pain but states this is tolerable and is happy with the degree of relief of lumbar radiculopathy she has had since the surgery. She does continue to experience discomfort in her feet and recently had an EMG nerve conduction study revealing a peripheral neuropathy and mild S1 remnant radiculopathy and an active tibial nerve impingement. PAST MEDICAL HISTORY: Significant for kidney disease, diabetes, hypertension, PTSD and drug abuse. She tried prednisone for seven days, which was helpful, although she is unsure if it is the PT or prednisone that has been most helpful. She was seen in the emergency department for this pain and was given a shot of Toradol and Flexeril. She does note the Flexeril was helpful. Currently, she is takingCymbalta and Lyrica 25 mg 3 times a day, which she just started. She had just weaned off gabapentin before she was prescribed Lyrica by Dr Keys. Patient Active Problem List Diagnoses ??? Lumbar radiculopathy ??? Os trigonum ??? Tarsal tunnel syndrome of right side ??? Idiopathic peripheral neuropathy Past Medical History Diagnosis Date ??? Bipolar disorder ??? PTSD (post-traumatic stress disorder) ??? Personality disorder ??? Plantar fasciitis ??? Drug abuse ??? Arthritis ??? Kidney disease ??? Diabetes mellitus ??? Heart disease ??? Hypertension ??? Nervousness ??? Eye problem ??? Breathing problem Past Surgical History Procedure Date ??? Spinal fusion L5-S1 Dr. Child 2006 ??? Laminectomy L5-S1 Dr. Bowers 1999 ??? Cholecystectomy ??? Tubal ligation History Substance Use Topics ??? Smoking status: Former Smoker Quit date: 01/13/2009 ??? Smokeless tobacco: Not on file ??? Alcohol Use: Yes very rarely Family History Problem Relation Age of Onset ??? Depression Other ??? Heart Disease Other ??? Psoriasis Other ??? Thyroid Disease Other ??? High Blood Pressure Other Current Outpatient Prescriptions Medication Sig Dispense Refill ??? pregabalin (LYRICA) 25 mg capsule Take 2 Caps by mouth 3 times daily. 60 Cap 2 ??? indomethacin (INDOCIN SR) 75 mg SR capsule Take 1 Cap by mouth daily for 30 days. 30 Cap 0 ??? ibuprofen (MOTRIN) 200 mg tablet Take [...] Bee Sting (Hymenoptera Allergenic Extract) ??? Codeine Review of Systems Constitutional: Positive for activity change. HENT: Positive for neck pain and neck stiffness. Eyes: Negative. Respiratory: Negative. Cardiovascular: Negative. Gastrointestinal: Negative. Genitourinary: Negative. Musculoskeletal: Positive for back pain. Skin: Negative. Neurological: Positive for weakness and numbness. Hematological: Negative. Psychiatric/Behavioral: Negative. Physical Exam Constitutional: She is oriented to person, place, and time. She appears well- developed and well-nourished. HENT: Head: Normocephalic and atraumatic. Eyes: EOM are normal. Cardiovascular: Normal rate. Pulmonary/Chest: Effort normal. Musculoskeletal: Palpable tenderness right lateral neck, bilateral upper trapezii. Normal gait. Decreased cervical ROM greatest with extension. 4/5 right 5/5 left arm abduction, elbow flexion/extension, wrist flexion/extension, shoulder external rotation, and finger flexion. Neurological: She is alert and oriented to person, place, and time. 2+ biceps, triceps, brachioradialis reflexes b/l. Decreased sensation to light touch right upper trapezius, right lateral arm, right volar and lateral forearm, right distal thumb, index finger, distalmiddle finger. Spurling's manuever elicits pain to the right axilla and lateral arm. Negative Holm's sign. Skin: Skin is warm and dry. No rashes, lesions, or hair zachary. Psychiatric: She has a normal mood and affect. Ortho Exam Neurologic Exam Mental Status Oriented to person, place, and time. Cranial Nerves CN III, IV, Extraocular motions are normal. Cervical MRI without contrast 03/28/2012: At C5-6, there is a small central disk herniation, which just indents the anterior thecal sac, without significant neuroforaminal stenosis. At C6-7, there is a moderate-sized right paracentral neuroforaminal disk herniation that results in moderate right neuroforaminal stenosis. Assessment/Plan: A 36-year-old female with discogenic cervicalgia and right cervical radiculopathy, likely in a C7 plus or minus C6 distribution. We discussed various treatment options, but given the amount of time that she has been experiencing this pain, a week and a half, I have advised that she continue with physical therapy and increase Lyrica to 50 mg 3 times a day. She can continue to increasethis Lyrica to a maximum of 100 mg 3 times a day. I have given her an out of work note for the next week and she will call in a week so we can discuss her work status. I would like to see her back in 4weeks to assess her progress. In the future, we could consider cervical epidural injections if needed. She does note, however, that lumbar injections were not helpful in the past. She was in agreement with this plan and will follow up in 4 weeks. She may perform all activities as tolerated at this time. cc: The Patient Donna Mohr NP documented in this encounter Plan of Treatment Upcoming Encounters Date Type Specialty Care Team Description 06/25/2022 Telemedicine Neurology Kj Gloria MD PhD 1 [facility] [address] [place], [place] [address] (Wo rk) 09/06/2022 Procedure visit Pain Medicine Catalino Garrett M D [address] [facility] [address] [place] [address] (Wo rk) 09/21/2022 Office Visit Bariatrics Allen Thompson, PALizettC [address] [facility], [facility], [address] [place], [place] [address] (Wo rk) documented as of this encounter Visit Diagnoses Diagnosis Tarsal tunnel syndrome of right side Tarsal tunnel syndrome Idiopathic peripheral neuropathy Unspecified hereditary and idiopathic pe ripheral neuropathy documented in this encounter Discontinued Medications Medication Sig Discontinue Reason Start Date End Date pregabalin (LYRICA) 25 mg Take 1 Cap by mouth Reorder 03/20/20 12 04/03/2012 capsuleIndications: 3 times daily. Tarsal tunnel syndrome of right side, Idiopathic peripheral neuropathy documented as of this encounter Care Teams Interlocking Tower Operator Relationship Specialty Start Date End Date Donna Mohr NP PCP - General 10/24/11 09/24/12 [place] [address] documented as of this encounter
--- OUTSIDE RECORDS SUMMARY | 2022-06-15 07:55 | XMS_ITS | Encounter Summary ---
:[address] [facility] Address [address] [place] [address] Care Team Providers Name Role Phone RosibeljonathaneverardoDonna GIULIA Primary Care Provider Reason for Visit Reason Onset Date Comments Medications Refill 08/21/2012 Encounter Details Date Type Department Care Team Description 08/21/2012 Refill [facility] Spine Brossfabiola u, Bee Medications Refill Program - [address] [place] [address] [place] [address] Social History Tobacco Use Types Packs/Day Years [...] End Date pregabalin (LYRICA) 50 mg Take 2 Caps by mouth 180 Cap 3 08/21/2012 capsule 3 times daily. documented in this encounter Miscellaneous Notes Telephone Encounter - Starr Hart PA - 08/21/2012 9998 EST Patient would like a refill on her Lyrica. documented in this encounter Plan of Treatment Upcoming Encounters Date Type Specialty Care Team Description 06/25/2022 Telemedicine Neurology Kj Gloria MD PhD 1 [facility], [address] [place], [place] [address] (Wo rk) 09/06/2022 Procedure visit Pain Medicine Catalino Garrett M D [address] [facility] [address] [place] [address] (Wo rk) 09/21/2022 Office Visit Bariatrics Allen Thompson PA-C [address] [facility], [facility], [address] [place], [place] [address] (Wo rk) documented as of this encounter Visit Diagnoses Not on filedocumented in this encounter Discontinued Medications Medication Sig Discontinue Reason Start Date End Date pregabalin (LYRICA) 50 mg Take 1 Cap by mouth Reorder 05/29/20 12 08/21/2012 capsule 3 times daily. pregabalin (LYRICA) 50 mg Take by mouth. 2 Reorder 08/21/2012 capsule tabs am, 2 tab mid day, 2 tabs pm documented as of this encounter Care Teams Financial Management Analyst Relationship Specialty Start Date End Date Donna Mohr NP PCP - General 10/24/11 09/24/12 [place] [address] documented as of this encounter
--- OUTSIDE RECORDS SUMMARY | 2022-06-15 07:55 | XMS_ITS | Encounter Summary ---
:1975 Author Organization [facility] Address [address] [place] [address] Care Team Providers Name Role Phone Brian Lindsay MD Primary Care Provider Unavailable Encounter Details Date Type Department Care Team Description 09/26/2011 Results Only Imaging [facility]- Unknown, ANA ProviderMD [phone] Social History Tobacco Use Types Packs/Day Years [...] [facility] [place], [place] [address] (Wo rk) 09/06/2022 Procedure visit Pain Medicine Catalino Garrett M D [address] [facility] [address] [place] [address] (Wo rk) 09/21/2022 Office Visit Bariatrics Allen Thompson, PALizettC [address] [place] [address] [facility], [facility], Level [address] [place], [place] [phone] (Wo rk) Pending Results Name Type Priority Associated Diagnoses Date/Ti me OUTSIDE CD - PLAIN FILM Imaging 09/03 15:00 EST [facility] OUTSIDE CD - MRI [facility] 012 14:59 EST documented as of this encounter Visit Diagnoses Not on filedocumented in this encounter Care Teams Workforce Investment Act Career Manager Relationship Specialty Start Date End Date Brian Lindsay MD PCP - General 04/11/11 10/23/11 documented as of this encounter
--- OUTSIDE RECORDS SUMMARY | 2022-06-15 07:55 | XMS_ITS | Encounter Summary ---
:1975 Author Organization [facility] Address [address] [place] [address] Care Team Providers Name Role Phone Juma Herrera MD Primary Care Provider Unavailable Reason for Referral Radiology Services (Routine/Next Available) - Closed Specialty Diagnoses / Procedures Referred By Contact Refer red To Contact Diagnoses Cervicalgia Kj Child MD Procedures CERVICAL SPINE 2-3 VIEWS [address] [place] [address] Referral ID Status Reason Start Date Expiration Date Visits Requ ested Visits Authorized [id number] Closed 10/14/2012 1 1 Reason for Visit Reason Onset Date Comments Neck Pain 10/13/2012 Encounter Details Date Type Department Care Team Description 10/13/2012 Orders Only [facility] Kj Child lgmiki (Primary Spine Program - Moises Kovacs MD Dx) [address] [facility] [address] [address] Social History Tobacco Use Types [...] Telemedicine Neurology Kj Gloria MD PhD 1 [facility], Level [address] [place], [place] [address] (Wo rk) 09/06/2022 Procedure visit Pain Medicine Catalino Garrett M D [address] [facility] [address] [place] [address] (Wo rk) 09/21/2022 Office Visit Bariatrics Allen Thompson PA-C [address] [place] [address] [facility], [facility], [address] [place], [place] [address] (Wo rk) documented as of this encounter Procedures Procedure Name Priority Date/Time Associated Diagnosis Comme nts CERVICAL SPINE 2-3 Routine 10/21/2012 12:59 Cervicalgia Resul ts for this VIEWS EST procedure are i n the results section. documented in this encounter Results CERVICAL SPINE 2-3 VIEWS (10/21/2012 12:59 EST) Anatomical Region Laterality Modality Other Specimen Narrative [facility] RAD[facility] - 10/03 16:18 EST CERVICAL SPINE 2-3 VIEWS ??Oct 21, 2012 12:59:00 PM Clinical History/Comments: 723.1-Cervica [id number]-NOI-0-CM; Neck Pain, status post C6-7 ACDF Comparison: 09/21/2012. Findings: 2 views of the cervical spine demonstrate anterior spinal fusion hardware transfixing C6 and C7. I nterbody bone grafting material at the C6-C7 level appears to b e in good position and there is early incorporation. Loss of the norm al cervical lordosis is present at the C6 level. The levels abov e that demonstrate a slightly straightened cervical lordosis. Procedure Note 10/21/2012 CERVICAL SPINE 2-3 VIEWS Oct 21, 2012 12 :59:00 PM Clinical History/Comments: 723.1-Cervica nxnt-MOS-2-CM; Neck Pain, status post C6-7 ACDF Comparison: 09/21/2012. Findings: 2 views of the cervical spine demonstrate anterior spinal fusion hardware transfixing C6 and C7. I nterbody bone grafting material at the C6-C7 level appears to b e in good position and there is early incorporation. Loss of the norm al cervical lordosis is present at the C6 level. The levels abov e that demonstrate a slightly straightened cervical lordosis. Performing Organization Address City/State/ZIP Code Phon e Number [facility] documented in this encounter Visit Diagnoses Diagnosis Cervicalgia - Primary documented in this encounter Care Teams Air Crew Supervisor Relationship Specialty Start Date End Date Juma Herrera MD PCP - General 09/25/12 12/07/18 [address] [place] [address] documented as of this encounter
--- OUTSIDE RECORDS SUMMARY | 2022-06-15 07:55 | XMS_ITS | Encounter Summary ---
:1975 Author Organization [facility] Address [address] [place] [address] Care Team Providers Name Role Phone Donna Mohr NP Primary Care Provider Juma Herrera MD Primary Care Provider Unavailable Reason for Visit Reason Onset Date Comments Pre-procedure 08/21/2012 Encounter Details Date Type Department Care Team Description 08/21/2012 Pre-Procedure [facility] Becki Rea Orders Encounter Spine Program - Octavio RN (Primary Dx) [address] [phone] Social History Tobacco Use Types Packs/Day [...] Telemedicine Neurology Kj Gloria MD PhD [address] [facility] 2 [place], [place] [address] (Jayjay anaya) 09/06/2022 Procedure visit Pain Medicine Catalino Garrett M D [address] [place] [address] [address] [place] [address] (Wo rk) 09/21/2022 Office Visit Bariatrics Allen Thompson, ZHOUC [address] [place] [address] [facility], [facility], [address] [place], [place] [phone] (Wo rk) documented as of this encounter Visit Diagnoses Diagnosis Cervicalgia - Primary documented in this encounter Care Teams Parks Recreation Coordinator Relationship Specialty Start Date End Date Donna Mohr NP PCP - General 10/24/11 09/24/12 [address] [place] [address] Juma Herrera MD PCP - General 09/25/12 12/07/18 [address] [place] [address] documented as of this encounter
--- OUTSIDE RECORDS SUMMARY | 2022-06-15 07:56 | XMS_ITS | Encounter Summary ---
:[address] [facility] Address [address] [place] [address] Care Team Providers Name Role Phone Unavailable Primary Care Provider Unavailable Encounter Details Date Type Department Care Team Description 07/17/2007 Before PRISM Converted [facility] - Yuliana Child Visit (Maple) Maple conversion MD Fermín [address] [address] [place] [address] [facility] [phone] [place] [address] Social History Tobacco Use Types Packs/Day Years Used Date Never Assessed Sex Assigned at Date Recorded Not on file documented as of this encounter Progress Notes Kj Child MD - 07/13/2009 1412 EST [facility] [place] ([facility] [address] [place], [place] [address] [address] PROGRESS/FOLLOWUP NOTE - 07/17/2007 Primary Care Provider: Brian iLndsay MD Referred by: Brian Lindsay MD Reason for referral: Attending: Kj Child MD PROBLEM 1. 50% back, 50% right leg pain. A. L5 isthmic spondylolisthesis. B. Status post right L5-S1 discectomy and decompression, 1999 (Elissa). C. L5-S1 decompression and fusion, January 14, 2007 (Maetusz). 2. Obesity. A. BMI 38. 3. 50 pack year smoking history. 4. History of narcotic addiction. A. Sobriety X 3 years. 5. Post-Traumatic Stress Disorder. 6. Bipolar disorder. 7. Personality disorder. 8. Right shoulder pain. SUBJECTIVE The patient returns today for routine follow up. She continues to complain of pain into her back andinto her right leg. She will occasionally use a cane for her ambulation as it makes her back and legfeel better. She notes that she will have some days where she has almost no pain, others when it is quite bothersome. She feels her symptoms are slightly better than before surgery, but not significantly. She is taking no pain medication. The patient also notes she has developed another problem approximately four weeks; a spontaneous atraumatic onset of right periscapular and shoulder discomfort. She notes that she has pain along the medial border of her right scapula, posterior aspect of her shoulder, anterior aspect of her shoulder and axilla, extending down to the elbow. She notes that that the pain is worsened any time she uses her shoulder or lies onit. It is improved somewhat by an upright position and supporting her arm. She has been treated with physical therapy with stretches, strengthening exercises and modalities which have not made any difference for her. She has had no other specific treatment for the shoulder itself. She notes the shoulder has been quite problematic and has really delayed her from being able to continue rehabilitation for her spine. OBJECTIVE Lumbar incisions are well healed. She is neurologically intact in the lower extremities. Shoulder has tenderness to palpation along the medial border of the scapula, anterior aspect of the subacromial space, no bicipital groove tenderness, no tenderness along the acromioclavicular joint or acromion. She has positive Neer impingement sign at 80 degrees, positive Su test, positive supraspinatus testing for weakness and pain. She has 5/5 deltoid, internal and external rotation, biceps, triceps, wrist flexion/extension, and finger abduction. 1+ biceps, triceps, brachioradialis,negative Hoffmanns. Neck flexion/extension is limited with extension, she does produce her right periscapular pain. Flexion with minimal discomfort. RADIOGRAPHS AP and flexion/extension lateral cervical spine films demonstrate multilevel degenerative changes, no evidence of any abnormal angulation or translation. AP and lateral lumbar films show her hardware in good position, fusion appears to be completely consolidated. ASSESSMENT This is a woman who has made only mild improvements from her preoperative status from her back and leg pain who now has what appears to be a solid fusion. I think she is unlikely to make any further significant gains in pain althoughI emphasized the importance of continued improvement in function through physical therapy and exercise. Her new right shoulder pain appears to be most likely related to an intrinsic shoulder pathology a subacromial bursitis, although I think it is unlikely she has a rotator cuff tear, but it is certainly possible. I am doubtful that it is a radiculopathy given that mostof the provocative intrinsic shoulder maneuvers reproduce symptoms and she does not have any deficits right now. I discussed the nature of her shoulder pain and the options with her as well as ongoing therapy, evaluation with MRI, possible subacromial injection, continued therapy, and at this point she wishes to pursue the following plan. PLAN 1. MRI of her shoulder to rule-out subacromial bursitis and rotator cuff tear. 2. Appointment with one of the shoulder specialists for review of the MRI and consideration of subacromial injection and further therapy treatment. 3. If the patient does not have a source of symptoms emanating from the shoulder, would then reevaluate her cervical spine by getting an EMG and cervical MRI. Signed by Kj Child MD 07/18/2007 18:21 Kj Child MD - Kj Child MD - agustina Job ID: [id number] Doc ID: [id number] cc: MD agustina Flores Job ID: [id number] Doc ID: [id number] cc: Brian Lindsay MD documented in this encounter Plan of Treatment Upcoming Encounters Date Type Specialty Care Team Description 06/25/2022 Telemedicine Neurology Kj Gloria MD PhD 1 [facility], [address] [place], [place] [address] (Jayjay anaya) 09/06/2022 Procedure visit Pain Medicine Catalino Garrett M D [address] [facility] [address] [place] [address] (Jayjay anaya) 09/21/2022 Office Visit Allen Elaine A, ELISABETH [address] [facility] venue [facility], [facility], [address] [place], [place] [address] (Wo rk) documented as of this encounter Visit Diagnoses Not on filedocumented in this encounter
--- OUTSIDE RECORDS SUMMARY | 2022-06-15 07:56 | XMS_ITS | Encounter Summary ---
:1975 Author Organization [facility] Address [address] [place] [address] Care Team Providers Name Role Phone Brian Lindsay MD Primary Care Provider Unavailable Encounter Details Date Type Department Care Team Description 05/28/2011 Abstract [facility] Spine Kj Song PA-C [facility] [address] Sp[facility] [place] [address] [phone] [place] [address] (Jayjay anaya) Social History Tobacco Use Types Packs/Day Years Used Date Former Smoker Quit: 01/14/20 09 Alcohol Use Standard Drinks/Week Comments Yes 0 (1 standard drink = 0.6 oz pure alcoho l) Sex Assigned at Date Recorded Not on file documented as of this encounter Plan of Treatment Upcoming Encounters Date Type Specialty Care Team Description 06/25/2022 Telemedicine Neurology Kj Gloria MD PhD 1 [facility] [address] [place], [place] [address] (Jayjay anaya) 09/06/2022 Procedure visit Pain Medicine Catalino Garrett M D [address] [facility] [address] [place] [address] (Jayjay anaya) 09/21/2022 Office Visit Bariatrics Allen Thompson PA-C [address] [place] [address] [facility], [facility], [address] [place], [place] [address] (Jayjay anaya) documented as of this encounter Visit Diagnoses Not on filedocumented in this encounter Historical Medications This list may reflect changes made after this encounter. Medication Sig Dispensed Refills Start Date End Date ACETAMINOPHEN (TYLENOL Take 650 mg by 0 09/07/2015 ORAL) mouth as needed. added in this encounter Care Teams Computer Systems Design Analyst Relationship Specialty Start Date End Date Brian Lindsay MD PCP - General 04/11/11 10/23/11 documented as of this encounter
--- OUTSIDE RECORDS SUMMARY | 2022-06-15 07:56 | XMS_ITS | Encounter Summary ---
:1975 Author Organization [facility] Address [address] [place] [address] Care Team Providers Name Role Phone Brian Lindsay MD Primary Care Provider Unavailable Reason for Visit Reason Comments Back Pain Encounter Details Date Type Department Care Team Description 05/16/2011 Office Visit [facility] Kj Song Low ba ck pain Spine [facility] - ELISABETH (Primary Dx) [address] [facility] [place] [address] [phone] [place] [phone] (Wo rk) Social History Tobacco Use Types [...] - Inhaled Oxygen Concentration - - Weight 130.2 kg (287 lb) 05/16/2011 1011 EDT Height 172.7 cm (5' 8) 05/16/2011 1011 EDT Body Mass Index 43.64 05/16/2011 1011 EDT documented in this encounter Progress Notes Kj Song PA - 05/16/2011 1057 EDT Hannah Spain is being seen as a consultation from Dr. Marte. Chief Complaint Patient presents with ??? Back Pain The encounter diagnosis was Low back pain. HPI HPI Patient Active Problem List Diagnoses Code ??? Lumbar radiculopathy 724.4F Past Medical History Diagnosis Date ??? Bipolar disorder ??? PTSD (post-traumatic stress disorder) ??? Personality disorder ??? Plantar fasciitis ??? Drug abuse Past Surgical History Procedure Date ??? Spinal fusion L5-S1 Dr. Child 2006 ??? Laminectomy L5-S1 Dr. Bowers 1999 ??? Cholecystectomy ??? Tubal ligation History Substance Use Topics ??? Smoking status: Former Smoker Quit date: 01/13/2009 ??? Smokeless tobacco: Not on file ??? Alcohol Use: Yes History reviewed. No pertinent family history. Current outpatient prescriptions Medication Sig Dispense Refill ??? gabapentin (NEURONTIN) [...] capsule Take 30 mg by mouth daily. Allergies Allergen Reactions ??? Codeine Review of Systems Constitutional: Negative for activity change. HENT: Negative for neck pain. Eyes: Negative for visual disturbance. Respiratory: Negative for wheezing. Cardiovascular: Negative for palpitations. Gastrointestinal: Negative for constipation. Genitourinary: Negative for difficulty urinating. Musculoskeletal: Positive for back pain. Skin: Negative for color change. Neurological: Positive for headaches. Psychiatric/Behavioral: The patient is nervous/anxious. Physical Exam Constitutional: She is oriented to person, place, and time. She appears well- developed and well-nourished. No distress. Eyes: Extraocular motions are normal. Cardiovascular: Normal rate. Pulmonary/Chest: Effort normal. Neurological: She is alert and oriented to person, place, and time. Skin: Skin is warm and dry. Psychiatric: Her behavior is normal. Back Exam Comments: .pel Neurologic Exam Mental Status Oriented to person, place, and time. Cranial Nerves CN III, IV, Extraocular motions are normal. The prior workup of the patient includes: MRI - abnormal 04/05/11 non-contrast study post surgical changes at L5-S1 right HNP moderately severe bilateral foraminal narrowing, disc degeneration at L3-4 unchanged from previous exam-no films Lumbar films reveal a solid fusion at L5-S1 no instability mild degeneration at L3-4 Assessment Low back pain musculoskeletal discogenic no signs of acute nerve root impingement. Her physical examis inconsistent in that she can heel and toe walk without difficulty but her strength testing would not support that ability. There may be a degree of psychosocial overlay in her pain. The burning sensation in her feet are not clearly associated with the lumbar spine and may be a result of plantar fasciitis vs tarsal tunnel syndrome. At this point she would like to move forward with the following plan. Other Orders Placed This Visit Procedure ??? L spine 4 or more views Plan: emg Activity as tolerated without limitation Continue current pain management regime Follow up Post emg The patient's past surgical history is significant for an L5-S1 diskectomy performed by Dr Child [id number] and L5-S1 decompression and fusion performed by Mateusz in 2006. Postsurgery she had persistent back and right lower extremity symptoms in an L5 distribution. Since that time she has had resolutionof her leg symptoms and had constant back pain. Three months ago she noted increased back discomfortdescribed as burning associated with bilateral foot burning. She had occasional right buttocks and right lateral thigh burning sensation as well, but this is not daily while her feet are daily and constant. Her discomfort is exacerbated by everything. She finds relief only with respiratory care faculty. She had seen a physical therapist and a ac/dc rewinder and was diagnosed with plantar fasciitis. She continues to see a chiropractor regularly. She underwent a plantar injection she feels helped improve her foot discomfort and she wears the cast on her feet as well. She has had 25% improvement in her foot pain. Currently she states 90% of her discomfort is focused in back, 10% in her legs with a moderate degree of pain. documented in this encounter Plan of Treatment Upcoming Encounters Date Type Specialty Care Team Description 06/25/2022 Telemedicine Neurology Kj Gloria MD PhD 1 [facility], [address] [place], [place] [address] (Wo rk) 09/06/2022 Procedure visit Pain Medicine Catalino Garrett M D [address] [facility] [address] [place] [address] (Wo rk) 09/21/2022 Office Visit Bariatrics Allen Thompson PA-C [address] [place] [address] [facility], [facility], [address] [place], [place] [address] (Wo rk) documented as of this encounter Procedures Procedure Name Priority Date/Time Associated Diagnosis Comme nts L SPINE 4 OR MORE Routine 05/16/2011 10:40 Low back pain Resul ts for this VIEWS EDT procedure are i n the results section. documented in this encounter Results L SPINE 4 OR MORE VIEWS (05/16/2011 10:40 EDT) Anatomical Region Laterality Modality Other Specimen Narrative [facility] - 05/03 14:02 EDT L SPINE 4 OR MORE VIEWS ??May 16, 2011 10:40:00 AM Signs and Symptoms/Comments: ??724.2-LOW BACK PAIN-I9 low back pain AP, lateral, lateral flexion-extension v iews compared to films of July and April 2007. Posterior fixator at the L5-S1 level is a bit differently imaged on the present AP film compared to the and July 2007 study but no abnormality ??demonstrated. No lizbeth ne destruction is demonstrated. SI joints are poorly visua lized but no definite abnormality. The lateral view shows no break in the w ires connected to the electronic device. Anterior slip of L5-S 1 is similar. No other malalignment is demonstrated. No guille subha fractures are seen. No dynamic instability with flexion versus extension. Some degenerative facet changes suggested at the L4-L5 lev el which may be increased.. Present examination shows a linear lucen cy overlying the region of the pars at L3. This could be further ev aluated with CT scan or oblique views if indicated. Impression: No dynamic instability and n o new compression fractures. No hardware failure. Possible progressio n of degenerative facet change at L4-L5. Suspect pars abnormality at the L3 level . Evaluation for pars defects would be best done with CT or oblique pl ain films. Procedure Note 05/16/2011 L SPINE 4 OR MORE VIEWS May 16, 2011 10: 40:00 AM Signs and Symptoms/Comments: 724.2-LOW B ACK PAIN-I9 low back pain AP, lateral, lateral flexion-extension v iews compared to films of July and April 2007. Posterior fixator at the L5-S1 level is a bit differently imaged on the present AP film compared to the and July 2007 study but no abnormality demonstrated. No bone destruction is demonstrated. SI joints are poorly visua lized but no definite abnormality. The lateral view shows no break in the w ires connected to the electronic device. Anterior slip of L5-S 1 is similar. No other malalignment is demonstrated. No guille subha fractures are seen. No dynamic instability with flexion versus extension. Some degenerative facet changes suggested at the L4-L5 lev el which may be increased.. Present examination shows a linear lucen cy overlying the region of the pars at L3. This could be further ev aluated with CT scan or oblique views if indicated. Impression: No dynamic instability and n o new compression fractures. No hardware failure. Possible progressio n of degenerative facet change at L4-L5. Suspect pars abnormality at the L3 level . Evaluation for pars defects would be best done with CT or oblique pl ain films. Performing Organization Address City/State/ZIP Code Phon e Number [facility] documented in this encounter Visit Diagnoses Diagnosis Low back pain - Primary Lumbago documented in this encounter Historical Medications This list may reflect changes made after this encounter. Medication Sig Dispensed Refills Start Date End Date duloxetine (CYMBALTA) 30 Take 90 mg by mouth daily Ta ke with 60mg cap to =90mg dose 0 05/16/2011 mg capsule duloxetine (CYMBALTA) 60 Take 60 mg by mouth 0 10/24/2011 mg capsule daily. amlodipine (NORVASC) 2.5 Take 2.5 mg by mouth 0 0 05/16/2011 10/24/2011 mg tablet 2 times daily. topiramate (TOPAMAX) 100 Take 200 mg by mouth 0 02/03/2015 mg tablet 2 times daily. gabapentin (NEURONTIN) Take 300 mg by mouth 0 06/18/2011 300 mg capsule 3 times daily. added in this encounter Care Teams Lavatory Attendant Relationship Specialty Start Date End Date Brian Lindsay MD PCP - General 04/11/11 10/23/11 documented as of this encounter
--- OUTSIDE RECORDS SUMMARY | 2022-06-15 07:56 | XMS_ITS | Encounter Summary ---
:[address] [facility] Address [address] [place] [address] Care Team Providers Name Role Phone Unavailable Primary Care Provider Unavailable Encounter Details Date Type Department Care Team Description 01/14/2007 - Hospital Encounter [facility] Kj Child 01/17/2007 General Surgery Unit MD Fermín [address] [address] [place] [address] FORMERLY [facility] [phone] [place] [address] Social History Tobacco Use Types Packs/Day Years Used Date Never Assessed Sex Assigned at Date Recorded Not on file documented as of this encounter Discharge Disposition Disposition Code Departure Means Destination Home or Self Care documented in this encounter OR Notes OR Surgeon - Kj Child MD - 01/14/2007 0000 EDT PROCEDURE REPORT PT TYPE: IP SERVICE DATE: 01/14/2007 SURGEON: Wilfrid Taylor MDRobert D Monsey, MD MANAGER TELECOM: Marques Oseguera MD PREOPERATIVE DIAGNOSIS L5 isthmic spondylolisthesis with foraminal stenosis. POSTOPERATIVE DIAGNOSIS L5 isthmic spondylolisthesis with foraminal stenosis. PROCEDURE L5 laminectomy, L4 and S1 laminotomy, bilateral L5-S1 foraminotomy, right-sided L5-S1 diskectomy, L5-S1 posterolateral fusion, iliac crest autograft, pedicle screws, and ANNETTE fusion stimulator. ANESTHESIA General. INDICATIONS The patient is a 31-year-old white female, who has undergone a previous right- sided diskectomy and decompression with no change in her symptoms. She has continued to complain of back and right leg pain, unresponsive to multiple nonoperative measures. Plain x-rays demonstrated a mobile isthmic spondylol isthesis at L5-S1. MRI demonstrated an L5-S1 disk herniation and right-sided foraminal stenosis. After understanding the options as well as the risks and complications, she elected to pursue surgical intervention. NARRATIVE The patient was brought to the operating room, and after successful induction of general anesthesia,was turned prone on a well padded Woodrow table. Eyes, ears, nose, shoulders, elbows, hands, genitals, feet, and knees were all protected with no compression. She was prepped and draped in a sterile fashion. Amidline longitudinal incision was made in line with her previous incision. It was carried sharply down through the skin and subcutaneous tissue and a subperiosteal dissection carried out to the tips of the transverse processes of L5 and S1. A marker wasplaced on the L5 spinous process and a lateral x-ray taken confirming our position. A Leksell was then used to remove the spinous process of L5. Small, medium, and large Kerrisons were used to complete a laminectomy of L5, an L4 laminotomy, an S1 laminotomy, and bilateral lateral recess decompression of 5-1 and foraminotomies, following the nerve root out to the far lateral zone. The neural elements were completely free. Attention was turned to the pedicles, which were entered on the posterior aspect with a 4-mm carbide lucretia, sounded with a Steffee probe. A 7 x 35-mm screw was placed at S1. A 7 x 50-mm screw was placed on the left at L5. A 6 x 50-mm screw was placed on the right at L5. The posterolateral elements were decorticated. Corticoc ancellous bone graft obtained in the usual fashion from the iliac crest was packed on the transverseprocesses of L5 and the sacral ala after an ANNETTE fusion stimulator had been placed over these decorticated areas. A rasp was used over the screw heads. Sleeves were applied to the screw heads. A lordotic contoured beverly was placed in the sleeves. The nuts were applied and tightened. The wound was irrigated copiously with Bacitracin irrigation. A Hemovac drain was placed in the wound. Then 0.2 ml of Duramorph was injected into the subarachnoid space. The wound was closed in layers with #1 Vicryl, 2-0 Vicryl, and yfn. A sterile gauze dressing was placed. The patient was transferred to the recovery room in good condition. ESTIMATED BLOOD LOSS 400 ml. Signed by Kj Child MD 01/16/2007 16:20 Wilfrid Taylor MD Kj Child MD - Charmaine Child MD Ziggy - josefina Job ID: [id number] Document ID: [id number] cc: MD Meche Peres PA Lloyd Thompson, MD Michael T Walsh, MD documented in this encounter Plan of Treatment Upcoming Encounters Date Type Specialty Care Team Description 06/25/2022 Telemedicine Neurology Kj Gloria MD PhD 1 [facility] [address] [place], [place] [address] (Wo héctor) 09/06/2022 Procedure visit Pain Medicine Catalino Garrett M D [address] [facility] [address] [place] [address] (Wo héctor) 09/21/2022 Office Visit Bariatrics Allen Thompson PA-C [address] [facility], [address] [place], [place] [address] (Jayjay anaya) documented as of this encounter Procedures Procedure Name Priority Date/Time Associated Comments Diagnosis COMPLETE BLOOD COUNT Routine 01/17/2007 6:10 Resu lts for this AND DIFFERENTIAL EDT procedure a re in the results section. BUN Routine 01/17/2007 6:10 Results for this EDT procedure are i n the results section. GLUCOSE, SERUM Routine 01/17/2007 6:10 Results fo r this EDT procedure are i n the results section. CREATININE Routine 01/17/2007 6:10 Results for this EDT procedure are i n the results section. ELECTROLYTES Routine 01/17/2007 6:10 Results for this EDT procedure are i n the results section. L SPINE 2-3 VIEWS 01/16/2007 9:49 Results for this EDT procedure are i n the results section. COMPLETE BLOOD COUNT Routine 01/16/2007 6:10 Resu lts for this AND DIFFERENTIAL EDT procedure a re in the results section. BUN Routine 01/16/2007 6:10 Results for this EDT procedure are i n the results section. GLUCOSE, SERUM Routine 01/16/2007 6:10 Results fo r this EDT procedure are i n the results section. CREATININE Routine 01/16/2007 6:10 Results for this EDT procedure are i n the results section. ELECTROLYTES Routine 01/16/2007 6:10 Results for this EDT procedure are i n the results section. URINE CHEMICAL (DIP) Routine 01/16/2007 0:27 Resu lts for this & SEDIMENT (MICRO) EDT procedure are in WITHOUT REFLEX TO the result s CULTURE section. COMPLETE BLOOD COUNT Routine 01/15/2007 5:40 Resu lts for this AND DIFFERENTIAL EDT procedure a re in the results section. BUN Routine 01/15/2007 5:40 Results for this EDT procedure are i n the results section. GLUCOSE, SERUM Routine 01/15/2007 5:40 Results fo r this EDT procedure are i n the results section. CREATININE Routine 01/15/2007 5:40 Results for this EDT procedure are i n the results section. ELECTROLYTES Routine 01/15/2007 5:40 Results for this EDT procedure are i n the results section. L SPINE 1 VIEW 01/14/2007 16:21 Results f or this EDT procedure are i n the results section. documented in this encounter Results GLUCOSE, SERUM (01/17/2007 6:10 EDT) Pathologist Sig nature Glucose, Serum 94 70 - 100 mg/dl [facility] Specimen Performing Organization Address City/State/ZIP Code Phon e Number [facility] [address] [place] [address] SERVICES [facility] [address] [place] [address] (ABNORMAL) ELECTROLYTES (01/17/2007 6:10 EDT) Pathologist Sig nature Sodium 135 (L) 136 - 145 mEq/L [facility] Potassium 3.6 3.5 - 5.0 mEq/L [facility] Chloride 99 96 - 110 mEq/L [facility] CO2 28 24 - 32 mEq/L [facility] Specimen Performing Organization Address City/[facility]/ZIP Code Phon e Number [facility] [address] [place] [address] SERVICES [facility] [address] [place] [address] (ABNORMAL) CREATININE (01/17/2007 6:10 EDT) [facility] nature Creatinine 0.65 (L) 0.7 - 1.5 mg/dl [facility] GFR, Calculated >60 ml/min/1.73m2 [facility] Specimen Performing Organization Address City/[facility]/ZIP Code Phon e Number [facility] [address] [place] [address] SERVICES [facility] [address] [place] [address] (ABNORMAL) HEMAGRAM AND DIFFERENTIAL (01/17/2007 6:10 EDT) [facility] WBC 9.10 4.0 - 12.4 K/cmm [facility] RBC 3.35 (L) 3.86 - 5.04 M/cmm [facility] Hemoglobin 10.5 (L) 11.6 - 15.2 gm/dl [facility] HCT 31.0 (L) 34.9 - 44.4 % [facility] MCV 93 81 - 98 fl [facility] MCH 31.3 26.7 - 33.3 pg [facility] MCHC 33.8 32.1 - 35.9 gm/dl [facility] PLT 211 141 - 320 K/cmm [facility] RDW-CV 13.5 11.7 - 14.6 % [facility] Neutrophils 70.6 45.5 - 79.7 % [facility] Lymphocytes 15.9 15.0 - 46.8 % [facility] Monocytes 10.6 1.8 - 12.0 % [facility] Eosinophils 2.6 0.6 - 6.9 % [facility] Basophils 0.3 0.2 - 1.4 % [facility] ABS Neutrophils 6.42 2.20 - 8.85 K/cmm [facility] ABS Lymphs 1.45 1.09 - 3.30 K/cmm [facility] ABS Monocytes 0.96 (H) 0.1 - 0.8 K/cmm [facility] ABS Eosinophils 0.24 0.03 - 0.61 K/cmm [facility] ABS Basophils 0.03 0.01 - 0.11 K/cmm [facility] Type of Diff: Automated [facility] Specimen Performing Organization Address City/State/ZIP Code Phon e Number [facility] [address] [place] [address] SERVICES [facility] [address] [place] [address] (ABNORMAL) BUN (01/17/2007 6:10 EDT) Pathologist Sig nature BUN 5 (L) 10 - 26 mg/dl [facility] Specimen Performing Organization Address [facility] Phon e Number [facility] [address] [place] [address] SERVICES [facility] [address] [place] [address] L SPINE 2-3 VIEWS (01/16/2007 9:49 EDT) Anatomical Region Laterality Modality Other Specimen Narrative [facility] - 03/02/2009 12 :16 EDT L5-S1 fusion check upright alignment L SPINE 2-3 VIEWS ??January 16, 2007 9:49:57 AM Signs and Symptoms:: ??L5-S1 fusion chec k upright alignment Findings: There has been interval placem ent of fusion hardware in the lumbar sacral spine, with screws enterin g the L5 and S1 vertebral bodies. There is no evidence of hardware failure. Superficial staple lines are noted over the soft tissues of the back. There is an electronic bone stimulator overlying the soft tissues of the back with 2 wires that approximate the lumbos acral junction. Alignment of the lumbar spine is within normal limits . Air-fluid levels are noted in the right abdomen, probably the colon . Phleboliths are seen in the pelvis. Impression: Satisfactory alignment of th e L-spine. No evidence of hardware failure. I have personally reviewed the images an d the above interpretation and agree with the findings. Procedure Note Kj Duarte / Jun Ramos MD - 0 03/02/2009 L5-S1 fusion check upright alignment L SPINE 2-3 VIEWS January 16, 2007 9:49:57 A M Signs and Symptoms:: L5-S1 fusion check upright alignment Findings: There has been interval placem ent of fusion hardware in the lumbar sacral spine, with screws enterin g the L5 and S1 vertebral bodies. There is no evidence of hardware failure. Superficial staple lines are noted over the soft tissues of the back. There is an electronic bone stimulator overlying the soft tissues of the back with 2 wires that approximate the lumbos acral junction. Alignment of the lumbar spine is within normal limits . Air-fluid levels are noted in the right abdomen, probably the colon . Phleboliths are seen in the pelvis. Impression: Satisfactory alignment of th e L-spine. No evidence of hardware failure. I have personally reviewed the images an d the above interpretation and agree with the findings. Performing Organization Address City/[facility]/ZIP Code Phon e Number [facility] [address] [facility] [address] [facility] [address] [place], [place] [address] GLUCOSE, SERUM (01/16/2007 6:10 EDT) Pathologist Sig nature Glucose, Serum 85 70 - 100 mg/dl [facility] Specimen Performing Organization Address City/[facility]/ZIP Code Phon e Number [facility] [address] [place] [address] SERVICES [facility] [address] [place] [address] ELECTROLYTES (01/16/2007 6:10 EDT) Pathologist Sig nature Sodium 139 136 - 145 mEq/L [facility] Potassium 3.5 3.5 - 5.0 mEq/L [facility] Chloride 106 96 - 110 mEq/L [facility] CO2 29 24 - 32 mEq/L [facility] Specimen Performing Organization Address City/[facility]/ZIP Code Phon e Number [facility] [address] [place] [address] SERVICES [facility] [address] [place] [address] CREATININE (01/16/2007 6:10 EDT) Pathologist Sig nature Creatinine 0.75 0.7 - 1.5 mg/dl [facility] GFR, Calculated >60 ml/min/1.73m2 [facility] Specimen Performing Organization Address [facility]/ZIP Code Phon e Number [facility] [address] [place] [address] SERVICES [facility] [address] [place] [address] (ABNORMAL) HEMAGRAM AND DIFFERENTIAL (01/16/2007 6:10 EDT) Pathologist Sig nature WBC 11.02 4.0 - 12.4 K/cmm [facility] RBC 3.32 (L) 3.86 - 5.04 M/cmm [facility] Hemoglobin 10.6 (L) 11.6 - 15.2 gm/dl [facility] HCT 30.3 (L) 34.9 - 44.4 % [facility] MCV 91 81 - 98 fl [facility] MCH 31.8 26.7 - 33.3 pg [facility] MCHC 34.8 32.1 - 35.9 gm/dl [facility] PLT 214 141 - 320 K/cmm [facility] RDW-CV 13.0 11.7 - 14.6 % [facility] Neutrophils 69.5 45.5 - 79.7 % [facility] Lymphocytes 17.0 15.0 - 46.8 % [facility] Monocytes 12.5 (H) 1.8 - 12.0 % [facility] Eosinophils 0.7 0.6 - 6.9 % [facility] Basophils 0.3 0.2 - 1.4 % [facility] ABS Neutrophils 7.66 2.20 - 8.85 K/cmm [facility] ABS Lymphs 1.87 1.09 - 3.30 K/cmm [facility] ABS Monocytes 1.38 (H) 0.1 - 0.8 K/cmm [facility] ABS Eosinophils 0.08 0.03 - 0.61 K/cmm [facility] ABS Basophils 0.03 0.01 - 0.11 K/cmm [facility] Type of Diff: Automated [facility] Specimen Performing Organization Address City/State/ZIP Code Phon e Number [facility] [address] [place] [address] SERVICES [facility] [address] [place] [address] (ABNORMAL) BUN (01/16/2007 6:10 EDT) Pathologist Sig nature BUN 4 (L) 10 - 26 mg/dl [facility] Specimen Performing Organization Address City/State/ZIP Code Phon e Number [facility] [address] [place] [address] SERVICES [facility] [address] [place] [address] (ABNORMAL) UA WITH MICROSCOPIC (01/16/2007 0:27 EDT) Color, UA Yellow [facility] Clarity, UA Clear [facility] Glucose, UA Norm NORM [facility] Bilirubin, UA Neg NEG [facility] Ketones, UA Mod (A) NEG [facility] Specific [place], >1.030 (H) 1.005 - 1.02 [facility] U[facility] LAB Blood, UA Neg NEG [facility] pH, UA 5.5 5.0 - 9.0 [facility] Protein, UA Neg NEG [facility] Urobilinogen, UA Norm NORM mg/dL [facility] Nitrite, UA Neg NEG [facility] Leuk Esterase Neg NEG [facility] WBC, UA less than 0 - 5 /HPF [facility] 1Comment: LESS LAB THAN 12CC SUBMITTED RBC, UA less than 1 0 - 5 /HPF [facility] Squam Epithel, UA Few (A) NS /HPF [facility] Renal Epithel, UA None seen NS /HPF [facility] Bacteria, UA None seen NS /HPF [facility] Crystals, UA None seen /HPF [facility] Hyaline Casts, UA None seen /LPF [facility] UA Comment Microscopic results [facility] are unreliable on LAB urines unrefrig >2hrs or refrig >8hrs. Mucus, UA Present [facility] Refractometer 1.017 1.005 - 1.02 [facility],Urine LAB Specimen Performing Organization Address City/[facility]/ZIP Code Phon e Number [facility] [address] [place] [address] SERVICES [facility] [address] [place] [address] GLUCOSE, SERUM (01/15/2007 5:40 EDT) Pathologist Sig nature Glucose, Serum 91 70 - 100 mg/dl [facility] Specimen Performing Organization Address City/[facility]/ZIP Code Phon e Number [facility] [address] [place] [address] SERVICES [facility] [address] [place] [address] ELECTROLYTES (01/15/2007 5:40 EDT) Pathologist Sig nature Sodium 140 136 - 145 mEq/L [facility] Potassium 4.0 3.5 - 5.0 mEq/L [facility] Chloride 105 96 - 110 mEq/L [facility] CO2 28 24 - 32 mEq/L [facility] Specimen Performing Organization Address City/[facility]/ZIP Code Phon e Number [facility] [address] [place] [address] SERVICES [facility] [address] [place] [address] CREATININE (01/15/2007 5:40 EDT) Pathologist Sig nature Creatinine 0.71 0.7 - 1.5 mg/dl [facility] GFR, Calculated >60 ml/min/1.73m2 [facility] Specimen Performing Organization Address [facility]/ZIP Code Phon e Number [facility] [address] [place] [address] SERVICES [facility] [address] [place] [address] (ABNORMAL) HEMAGRAM AND DIFFERENTIAL (01/15/2007 5:40 EDT) Pathologist Sig nature WBC 9.37 4.0 - 12.4 K/cmm [facility] RBC 3.50 (L) 3.86 - 5.04 M/cmm [facility] Hemoglobin 11.2 (L) 11.6 - 15.2 gm/dl [facility] HCT 31.7 (L) 34.9 - 44.4 % [facility] MCV 91 81 - 98 fl [facility] MCH 32.1 26.7 - 33.3 pg [facility] MCHC 35.4 32.1 - 35.9 gm/dl [facility] PLT 253 141 - 320 K/cmm [facility] RDW-CV 13.2 11.7 - 14.6 % [facility] Neutrophils 78.7 45.5 - 79.7 % [facility] Lymphocytes 14.5 (L) 15.0 - 46.8 % [facility] Monocytes 5.8 1.8 - 12.0 % [facility] Eosinophils 0.5 (L) 0.6 - 6.9 % [facility] Basophils 0.5 0.2 - 1.4 % [facility] ABS Neutrophils 7.39 2.20 - 8.85 K/cmm [facility] ABS Lymphs 1.35 1.09 - 3.30 K/cmm [facility] ABS Monocytes 0.54 0.1 - 0.8 K/cmm [facility] ABS Eosinophils 0.05 0.03 - 0.61 K/cmm [facility] ABS Basophils 0.04 0.01 - 0.11 K/cmm [facility] Type of Diff: Automated [facility] Specimen Performing Organization Address City/State/ZIP Code Phon e Number [facility] [address] [place] [address] SERVICES [facility] [address] [place] [address] (ABNORMAL) BUN (01/15/2007 5:40 EDT) Pathologist Sig nature BUN 8 (L) 10 - 26 mg/dl [facility] Specimen Performing Organization Address City/[facility]/ZIP Code Phon e Number [facility] [address] [place] [address] SERVICES [facility] [address] [place] [address] L SPINE 1 VIEW (01/14/2007 16:21 EDT) Anatomical Region Laterality Modality Other Specimen Narrative [facility] - 03/02/2009 13 :45 EDT spondylolisthesis of lumbar, congenital - l5-s1 psf, decomp, pedscrews r/o check level L SPINE 1 VIEW ??January 14, 2007 4:21:58 PM Signs and Symptoms:: ??spondylolisthesis of lumbar, congenital - l5-s1 psf, decomp, pedscrews r/o check level Findings: A crosstable lateral view of t he lumbar spine was obtained. There is a surgical marker pointing towa rds the superior aspect of the L5 vertebral body towards the L4-L5 disc space. Radiopaque material is present at the operative sit e posteriorly. Findings were called to the operating room. I have personally reviewed the images an d the above interpretation and agree with the findings. Procedure Note Andrea Whatley Jr., MD / Albaro Watson MD - 03/02/2009 spondylolisthesis of lumbar, congenital - l5-s1 psf, decomp, pedscrews r/o check level L SPINE 1 VIEW January 14, 2007 4:21:58 PM Signs and Symptoms:: spondylolisthesis o f lumbar, congenital - l5-s1 psf, decomp, pedscrews r/o check level Findings: A crosstable lateral view of t he lumbar spine was obtained. There is a surgical marker pointing towa rds the superior aspect of the L5 vertebral body towards the L4-L5 disc space. Radiopaque material is present at the operative sit e posteriorly. Findings were called to the operating room. I have personally reviewed the images an d the above interpretation and agree with the findings. Performing Organization Address City/State/ZIP Code Phon e Number [facility] [address] [facility] [address] [facility] [address] [place], [place] [address] documented in this encounter Visit Diagnoses Not on filedocumented in this encounter
--- OUTSIDE RECORDS SUMMARY | 2022-06-15 07:56 | XMS_ITS | Encounter Summary ---
:1975 Author Organization [facility] Address [address] [place] [address] Care Team Providers Name Role Phone Unavailable Primary Care Provider Unavailable Encounter Details Date Type Department Care Team Description 09/19/2006 [facility] - Harry Abreu Converted Visit [place] julito Elena MD (Maple) 111 [facility] [address] [place] [address] [phone] [place] [phone] (Wo rk) Social History Tobacco Use Types Packs/Day Years Used Date Never Assessed Sex Assigned at Date Recorded Not on file documented as of this encounter Consult Notes Harry Abreu MD - 09/06/2009 0345 EST Spine [facility] (SpINE) Orthopaedics & Rehabilitation [address] [place] [address] [phone] CONSULTATION - ND: Right buttock pain and right lower extremity pain. S: Ms. Spain comes in today for spinal consultation from MARGARITA Chaudhari MD. Shehas a past medical history significant for a right sided L5-S1 discectomy performed by Dr. Bran Bowers in November of 1999. She indicates that that time she was experiencing primarily low back discomfort. She indicates that she did not experience any relief following her surgical treatment. She states that for the first two months after surgery while recoveringshe did not have significant discomfort, but following that her low back discomfort recurred. Since that time she states that she has developed pain in the right buttock and this has radiated to the anterior thigh and lateral thigh as well as posterior thigh. She has some groin discomfort. She has had an achy discomfort over the anterior lilly, but that has not been a predominant symptom. She has had extensive evaluations and treatments postoperatively through the [facility]. She has had many injections performed including epidurals which have not given her any substantial relief. She was actually evaluated by in of the year 1999 because of her ongoing discomfort and at that time it was not felt that she should proceed with further surgical intervention without discography. Today I had the opportunity to review notes from Dr. Bowers, Ms. Farias, Dr. Whiting, Dr. Child and also notes from the Anesthesia Pain Service at [facility]. Ms. Spain has also completed a patient intake questionnaire quite thoroughly. She presently uses Vicodin, soma and ibuprofen on anas needed basis. She also is using Cymbalta, Norvasc and Levoxyl. She has had a cholecystectomy and tubal ligation. She denies constitutional symptoms. Her stated height is 5 8?? and her weight is 247 pounds. O: On the exam today I find her to be very cooperative. She is pleasant and gives a straightforward history. Sheis able to ambulate today without an antalgic gait. She is able to raise on heels and toes. She is able to get down and up from a squat. She extends 10?? without discomfort. She forward flexes 30??. She has a little back discomfort. She does not have any paravertebral spasm. The surgicalincision in the lumbar region is well healed. In the sitting position the straight leg raising does not produce any radicular symptoms. Straight leg raising on the right does produce some right buttock discomfort. Reflexes are present at physiologic levels at knees and ankles. Toes are downgoing; there isno sustained clonus. I find no evidence of motor or sensory deficits. In the supine position there is no significant pain with rotatory motion through the hips, although with internal rotation she has some groin discomfort. She did have a MRI with and without contrast ofthe lumbar spine in March of 2000. This is available for my review today. I see no evidence of a discherniation. There is minimal bulging of the L5-S1 disc. I obtained X-rays today including a lateral flexion and extension of the lumbar spine and an AP pelvis. Pelvic X-rays was normal. The lateralflexion and extension reveals bilateral L5 spondylolysis andshe develops a grade 1 slip with forward flexion. This is compared with films done in 2000 and therehas been no change. A: This woman continues to experience her low back and right lower extremity discomfort despite extensive management conservatively. She however has not had an intensive rehab program. She states that she wants to consider surgery. I told her that surgery for the spondyliticdoes not always lead to resolution of the pain, either the back pain or the right lower extremity pain and told her that she would have to have a very elaborate work up prior to consideration of any surgical intervention. P: She states that she is uncomfortable enough that she wants to proceed with further assessment. Weare going to get a consult with Dr. Barraza to do EMGstudies to assess the right lower extremity discomfort. She is also going to have the opportunity again to meet with Dr. Child who did discuss with her in the past work up for surgery. Signed by Harry Abreu MD 09/24/2006 07:59 Criselda Noyola MD Harry Abreu MD - Stephanie bAreu MD A - cmd Job ID: [id number] Document ID: [id number] cc: MARGARITA Chaudhari MD Thomas J Zweber, MD documented in this encounter Plan of Treatment Upcoming Encounters Date Type Specialty Care Team Description 06/25/2022 Telemedicine Neurology Kj Gloria MD PhD 1 [facility], Level [address] [place], [place] [phone] (Jayjay anaya) 09/06/2022 Procedure visit Pain Medicine Catalino Garrett M D [address] [facility] [address] [place] [address] (Wo rk) 09/21/2022 Office Visit Bariatrics Allen Thompson, ELISABETH 111 [facility], [facility] 5 [place], [place] [address] (Wo rk) documented as of this encounter Visit Diagnoses Not on filedocumented in this encounter
--- OUTSIDE RECORDS SUMMARY | 2022-06-15 07:56 | XMS_ITS | Encounter Summary ---
:1975 Author Organization [facility] Address [address] [place] [address] Care Team Providers Name Role Phone Unavailable Primary Care Provider Unavailable Encounter Details Date Type Department Care Team Description 12/30/2009 Abstract Used for ABSTRACTING Data Unknown, Doctor [phone] Social History Tobacco Use Types Packs/Day Years Used Date Never Assessed Sex Assigned at Date Recorded Not on file documented as of this encounter Plan of Treatment Upcoming Encounters Date Type Specialty Care Team Description 06/25/2022 Telemedicine Neurology Kj Gloria MD PhD 1 [facility] 2 [place], [place] [phone] (Wo rk) 09/06/2022 Procedure visit Pain Medicine Catalino Garrett M D [address] [place] [address] [address] [place] [address] (Wo rk) 09/21/2022 Office Visit Bariatrics Allen Thompson PA-C [address] [facility] [address] [place], [place] [address] (Wo rk) documented as of this encounter Visit Diagnoses Not on filedocumented in this encounter
--- OUTSIDE RECORDS SUMMARY | 2022-06-15 07:56 | XMS_ITS | Encounter Summary ---
:1975 Author Organization [facility] Address [address] [place] [address] Care Team Providers Name Role Phone Unavailable Primary Care Provider Unavailable Encounter Details Date Type Department Care Team Description 02/24/2007 Before PRISM Converted [facility] - Yuliana Child Visit (Maple) Maple conversion MD Fermín [address] [address] [place] [address] [facility] [phone] [place] [address] Social History Tobacco Use Types Packs/Day Years Used Date Never Assessed Sex Assigned at Date Recorded Not on file documented as of this encounter Progress Notes Kj Child MD - 07/10/2009 1324 EST [facility] (SpINE) Orthopaedics and Rehabilitation [facility] [address] [place] [id number] PROGRESS/FOLLOWUP NOTE - 02/24/2007 PROBLEM 1: 50% back, 50% right leg pain A. L5 isthmic spondylolisthesis B. S/P right L5-S1 discectomy and decompression, 1999 (Elissa) C. L5-S1 decompression and fusion, January 14, 2007 (Mateusz) PROBLEM 2: Obesity A. BMI 38 PROBLEM 3: 50 pack year smoking history PROBLEM 4: History of narcotic addiction A. Sobriety X 3 years PROBLEM 5: PTSD PROBLEM 6: Bipolar disorder PROBLEM 7: Personality disorder SUBJECTIVE Patient returns today for routine follow-up. She continues to complain of discomfort in her back andinto both legs. She feels like the leg symptoms are somewhat better than they were before surgery but still quite problematic but they are improving over the last several weeks. She is now taking only o ccasional muscle relaxant every couple days. She is not taking any narcotics or anti-inflammatories.She feels like her appetite is O.K. 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 OBJECTIVE Incisions are well healed. She is neurologically intact. X-rays: AP and lateral show her hardware ingood position, fusion is consolidating appropriately. ASSESSMENT Patient who is making slow but appropriate progress, intermittent symptoms are most likely related to just healing from the surgical procedure inflammation. I anticipate that the symptoms will gradually resolve as her fusion consolidates and we are able to do some muscle rehabilitation. PLAN 1. Advised her to be on Tylenol regularly every four hours for the next couple of weeks to try to calm things down. 2. Continue with home exercise program with physical therapy/occupational therapy. 3. Return to work four hours a day, two days a week, progress as tolerated. 4. Follow-up in 6 weeks, AP and lateral lumbar spine films to be obtained prior to being seen. Signed by Kj Child MD 02/28/2007 19:29 Wilfrid Taylor MD Kj Child MD - Kj Child MD - [facility] Job ID: [id number] Doc ID: [id number] cc: DO Brian Petersen MD Thomas J Zweber, MD [facility], [address] [place] [id number]* documented in this encounter Plan of Treatment Upcoming Encounters Date Type Specialty Care Team Description 06/25/2022 Telemedicine Neurology Kj Gloria MD PhD 1 [facility], [facility] 2 [place], [place] [address] (Wo rk) 09/06/2022 Procedure visit Pain Medicine Catalino Garrett M D [address] [place] [address] [address] [place] [address] (Wo rk) 09/21/2022 Office Visit Bariatrics Allen Thompson PA-C 111 [facility], [facility], Level [address] [place], [place] [address] (Wo rk) documented as of this encounter Visit Diagnoses Not on filedocumented in this encounter
--- OUTSIDE RECORDS SUMMARY | 2022-06-15 07:56 | XMS_ITS | Encounter Summary ---
:1975 Author Organization [facility] Address [address] [place] [address] Care Team Providers Name Role Phone Brian Lindsay MD Primary Care Provider Unavailable Reason for Referral Consult (Routine) - Closed Specialty Diagnoses / Procedures Referred By Contact Refer red To Contact Orthopedic Surgery Diagnoses Tarsal tunnel syndrome Kj Song PA-C [place] [address] Before the Call [facility] [place] Spine [address] [phone] Referral ID Status Reason Start Date Expiration Date Visits V isits Requested Authorized [id number] Closed Specialty 06/15/2011 1 1 Services Required Question Answer Reason for Request: tarsal tunnel syndrome Reason for Visit Reason Comments Follow-up EMG follow up Encounter Details Date Type Department Care Team Description 06/15/2011 Office Visit [facility] Kj Song Tarsal tunnel syndrome (Primary Dx); Spine Program - ELISABETH Low back pain [address] Spine [place] [address] [place] [address] (Wo rk) Social History Tobacco Use Types Packs/Day Years Used Date Former Smoker Quit: 01/14/20 09 Alcohol Use Standard Drinks/Week Comments Yes 0 (1 standard drink = 0.6 oz pure alcoho l) Sex Assigned at Date Recorded Not on file documented as of this encounter Progress Notes Kj Song PA - 06/15/2011 1134 EDT Patient presents with continued chronic low back pain, bilateral lower extremity paresthesias statuspost EMG nerve conduction studies performed by Dr Levine today. OBJECTIVE: EMG nerve conduction studies negative for peripheral neuropathy, negative for lumbar radiculopathy, positive for tarsal tunnel syndrome. ASSESSMENT: Back pain, musculoskeletal chronic, lower extremity symptoms related to tarsal tunnel syndrome. PLAN: 1. Follow up with podiatry. 2. Activity as tolerated without limitation. 3. Continue current pain management regime. Follow up with me p.r.n. If her back pain persists, she wanted to pursue other options we could consider injection therapy such as medial branch blocks and radiofrequency ablation. documented in this encounter Plan of Treatment Upcoming Encounters Date Type Specialty Care Team Description 06/25/2022 Telemedicine Neurology Kj Gloria MD PhD 1 [facility] Level [address] [place], [place] [address] (Jayjay anaya) 09/06/2022 Procedure visit Pain Medicine Catalino Garrett M D [address] [facility] [address] [place] [address] (Jayjay anaya) 09/21/2022 Office Visit Bariatrics Allen Thompson PA-C 111 [facility], Level [address] [place], [place] [address] (Jayjay anaya) Scheduled Referrals Name Type Priority Associated Order Schedule Diagnoses AMB CONSULT Outpatient Referral Routine Tarsal tunnel Ordered : ORTHOPEDICS syndrome 06/15/2011 documented as of this encounter Visit Diagnoses Diagnosis Tarsal tunnel syndrome - Primary Low back pain Lumbago documented in this encounter Care Teams User Experience Developer Relationship Specialty Start Date End Date Brian Lindsay MD PCP - General 04/11/11 10/23/11 documented as of this encounter
--- OUTSIDE RECORDS SUMMARY | 2022-06-15 07:56 | XMS_ITS | Encounter Summary ---
:1975 Author Organization [facility] Address [address] [place] [address] Care Team Providers Name Role Phone Unavailable Primary Care Provider Unavailable Encounter Details Date Type Department Care Team Description 05/29/2010 Results Only [facility] Payton Farias am, PA Services - G[facility] [place] [address] [place], [place] [phone] Social History Tobacco Use Types Packs/Day Years Used Date Never Assessed Sex Assigned at Date Recorded Not on file documented as of this encounter Plan of Treatment Upcoming Encounters Date Type Specialty Care Team Description 06/25/2022 Telemedicine Neurology Kj Gloria MD PhD 1 [facility] 2 [place], [place] [address] (Jayjay anaya) 09/06/2022 Procedure visit Pain Medicine Catalino Garrett M D [address] [place] [address] [address] [place] [address] (Jayjay anaya) 09/21/2022 Office Visit Bariatrics Allen Thompson PA-C 111 [facility] venue [facility], [facility], Level [address] [place], [place] [address] (Jayjay anaya) documented as of this encounter Procedures Procedure Name Priority Date/Time Associated Diagnosis Comme nts CYTOPATHOLOGY Routine 05/29/2010 0:00 EDT Results for this procedure are i n the results section . documented in this encounter Results CYTOPATHOLOGY (05/29/2010 0:00 EDT) Pathology Report: CYTOPATHOLOGY REPORT ? [facility] ? LAB Reports generated via electr onic interface contain original data; ? however they are lacking the format of the original report. ? Caution should be taken when reading/interpreting unformatted reports. ? Name: ? TIA HITCHCOCK ? Accession #: ? [id number] ? : ? 1975 (Age: 34) ??F ?Collect Date: ? 05/29/2010 ? Location: ? [facility] ? R eceive Date: ? 05/30/2010 ? Provider: DEJUAN PRIMITIVO PA ? Copy to: ? Final Report ? SPECIMEN ADEQUACY ? Satisfactory for Eval uation ? - transformation zone compon ent present ? GENERAL CATEGORIZATION ? Negative for Intraepi thelial Lesion or Malignancy ? INTERPRETATION ? Shift in abram presen t suggestive of bacterial vaginosis. ? Last Menstural Period: 8/?/1 0 ? Treatment History: Colposcop y ? Other: Additional clinical i nformation: h/o of abn paps per pt ? HPVDX - HPV testing requeste d regardless of diagnosis on current ThinPrep Pap ?? test. ? Specimen/Source: ??Pap Test, Cervix/Endocervix, ThinPrep Imaging System with ? manual evaluation ? Document reviewed and electr onically signed by: ? Lynan Gianluca, CT(ASCP) ? Report ??Date: 10/04/ 2010 10:02 ? HPV with Pap Test ? Date Ordered: ? 1 ? Status: ?? Signed Out ?Date Complete: ? 06/08/2010 ? By: ??System Interface ? Date Reported: ? 06/08/2010 ? Interpretation ? RESULT: Negative for HPV typ es 16, 18, 31, 33, 35, 39, 45, 51, 52, ? 56, 58, 59, and 68. ? Comments ? Document reviewed and electr onically signed by: ? System Interface ? Report date: 10/07/20 10 ? By the signature above, the attending physician certifies that he/she has ? personally conducted a gross and/or microscopic examination of the described ? specimens and rendered or co nfirmed the above diagnosis. ? End of Report ? Specimen Performing Organization Address City/State/ZIP Code Phon e Number [facility] [address] [place] [address] SERVICES [facility] [address] [place] [address] documented in this encounter Visit Diagnoses Not on filedocumented in this encounter
--- OUTSIDE RECORDS SUMMARY | 2022-06-15 07:56 | XMS_ITS | Encounter Summary ---
:1975 Author Organization [facility] Address [address] [place] [address] Care Team Providers Name Role Phone Unavailable Primary Care Provider Unavailable Encounter Details Date Type Department Care Team Description 10/03/[address] [facility] [address] [address] [facility] [address] [place] [address] (Wo rk) Social History Tobacco Use Types Packs/Day Years Used Date Never Assessed Sex Assigned at Date Recorded Not on file documented as of this encounter Discharge Disposition Disposition Code Departure Means Destination Auto Discharge documented in this encounter Plan of Treatment Upcoming Encounters Date Type Specialty Care Team Description 06/25/2022 Telemedicine Neurology Kj Gloria MD PhD 1 [facility] 2 [place], [place] [address] (Wo rk) 09/06/2022 Procedure visit Pain Medicine Catalino Garrett M D [address] [facility] [address] [place] [address] (Wo rk) 09/21/2022 Office Visit Bariatrics Allen Thompson PA-C 111 [facility], [facility], [address] [place], [place] [address] (Wo rk) documented as of this encounter Visit Diagnoses Not on filedocumented in this encounter
--- OUTSIDE RECORDS SUMMARY | 2022-06-15 07:56 | XMS_ITS | Encounter Summary ---
:1975 Author Organization [facility] Address [address] [place] [address] Care Team Providers Name Role Phone Unavailable Primary Care Provider Unavailable Encounter Details Date Type Department Care Team Description 02/24/2007 Hospital Encounter [facility] - Kj Child MD [address] [address] [facility] [phone] [place] [phone] (Jayjay rk) Social History Tobacco Use Types Packs/Day Years Used Date Never Assessed Sex Assigned at Date Recorded Not on file documented as of this encounter Discharge Disposition Disposition Code Departure Means Destination Auto Discharge documented in this encounter Plan of Treatment Upcoming Encounters Date Type Specialty Care Team Description 06/25/2022 Telemedicine Neurology Kj Gloria MD PhD 1 [facility] 2 [place], [place] [phone] (Wo rk) 09/06/2022 Procedure visit Pain Medicine Catalino Garrett M D 62 [facility] [address] [place] [address] (Wo rk) 09/21/2022 Office Visit Bariatrics Allen Thompson PA-C 111 [facility], [facility], Level [address] [place], [place] [address] (Wo rk) documented as of this encounter Procedures Procedure Name Priority Date/Time Associated Diagnosis Comme nts L SPINE 2-3 VIEWS 02/24/2007 13:20 Result s for this EDT procedure are i n the results section. documented in this encounter Results L SPINE 2-3 VIEWS (02/24/2007 13:20 EDT) Anatomical Region Laterality Modality Other Specimen Narrative [facility] - 03/02/2009 14 :07 EDT low back pain s/p l5-s1 posterolateral fusion l4-s1 decomp: zulma fusion stimulator 01/14/07 assess fusion maturation. L SPINE 2-3 VIEWS ?? 2006 1:21:10 PM Signs and Symptoms:: ??low back pain s/p l5-s1 posterolateral fusion l4-s1 decomp: ??fusion stimulator 7 assess fusion maturation. Findings: 2 views of lumbar spine ingrid trahieu patient to be status post L5-S1 posterior lateral fusion in p lacement of fusion stimulator. There is no interval change since previous examination. The degree of fusion maturation appears to have advanced slightly but significantly from a radiographic point of view. Procedure Note Santiago Snider MD - 03/02/2009 low back pain s/p l5-s1 posterolateral fusion l4-s1 decomp: zulma fusion stimulator 01/14/07 assess fusion maturation. L SPINE 2-3 VIEWS 2006 1:21:10 PM Signs and Symptoms:: low back pain s/p l 5-s1 posterolateral fusion l4-s1 decomp: fusion stimulator 01/14/07 assess fusion maturation. Findings: 2 views of lumbar spine ingrid mckee patient to be status post L5-S1 posterior lateral fusion in p lacement of fusion stimulator. There is no interval change since previous examination. The degree of fusion maturation appears to have advanced slightly but significantly from a radiographic point of view. Performing Organization Address City/State/ZIP Code Phon e Number [facility] 111 [facility], [facility] [address] [facility] [address] [place], [place] [address] documented in this encounter Visit Diagnoses Not on filedocumented in this encounter
--- OUTSIDE RECORDS SUMMARY | 2022-06-15 07:56 | XMS_ITS | Encounter Summary ---
:1975 Author Organization Address [address] [place] [address] Care Team Providers Name Role Phone Unavailable Primary Care Provider Unavailable Encounter Details Date Type Department Care Team Description 10/03/2006 Before PRISM Converted [facility] - Tank Barraza, Visit (Maple) Mapevelyn conversion [address] [place] [address] [address] [address] [place] [address] Social History Tobacco Use Types Packs/Day Years Used Date Never Assessed Sex Assigned at Date Recorded Not on file documented as of this encounter Procedure Notes Khris Barraza MD - 09/18/20092052 EST PHYSICAL MEDICINE/REHABILITATION ELECTRODIAGNOSTIC MEDICINE CONSULTATION DATE OF SERVICE: 10/03/2006 ATTENDING PHYSICIAN: Khris Barraza MD REQUESTING PHYSICIAN: Harry Abreu MD PRIMARY CARE PHYSICIAN: Brian Lindsay MD HISTORY: The patient is a 32-year-old female who has been struggling with back problems for over seven years.She states that even in high school she had ongoing back pain. This eventually led to a work-up and she underwent L-5, S-1 discectomy in November 1999. She states that this did not substantially help her pain. She has seen multiple physicians along the way including Dr. Bowers, Dr. Farias, Dr. Whiting, and Dr. Child. She has been followed by the Pain Service at [facility]. She saw Dr. Abreu for a comprehensive initial evaluation on September 19, 2006 and she is being referred to me for evaluation. PAST MEDICAL HISTORY: ?? Obesity. ?? Treated depression. ?? History of migraine. ?? Smoking with chronic bronchitis. FAMILY HISTORY: Positive for nerve disease. REVIEW OF SYSTEMS: Please see intake format, this is reviewed and signed. EXAMINATION: On examination, she is an obese female in mild distress. Gait is slightly antalgic on the right side. Her lumbar range of motion is limited in all directions and she feels on the right greater than leftlumbosacral junction. There is some weakness of right ankle dorsiflexion and right toe extension, although, it at times isinconsistent and has a giveaway type consistency. The peripheral pulses are intact at the dorsal foot and medial ankle. Sensory testing is intact. Gross motor testing otherwise is intact. There is tenderness on the right greater trochanter. I was unable to truly perform an adequate straight leg raise. NERVE CONDUCTION STUDY Nerve Distal Latency (Nl<3.6) Evoked Response Amplitude Nerve Conduction Velocity Comments L. Peroneal F-Wave 43.0 msec L. Tibial F-Wave 42.6 msec R. Tibial F-Wave 43.1 msec R. Peroneal F-Wave 42.6 msec EMG REPORT: A very detailed examination was performed. Muscles examined included the lumbar paraspinals, tensor fasciae latae, gluteus medius, iliopsoas, quadriceps, adductor willy, anterior tibialis, extensor hallucis longus, medial and lateral gastrocnemius, and soleus. FINDINGS: The right extensor hallucis longus showed trace to 1+ increased insertional activity with an occasional positive sharp wave and fibrillation potentials extending into the resting phase. All other muscles tested normally. IMPRESSION: This was a minimally abnormal EMG/Nerve Conduction Study. 1. were minimal changes in the right extensor hallucis longus. 2. On her physical exam, there also appears to be a certain degree of trochanteric bursitis on the right hand side. 3. I am aware, reviewing her records, that she has a grade 1 spondylolisthesis at L-5, S-1 and substantial disk degeneration at that level. The patient and her significant other had several questions, which were answered. She is going to see Dr. Child in follow up on October 24, 2006. Signed by Khris Barraza MD 10/08/2006 08:08 Alvaro Malikeber, MD Khris Barraza MD - Wade Barraza MD kmt A - Job ID: [id number] Document ID: [id number] cc: MD Brian Segundo MD documented in this encounter Plan of Treatment Upcoming Encounters Date Type Specialty Care Team Description 06/25/2022 Telemedicine Neurology Kj Gloria MD PhD 1 [facility] 2 [place], [place] [address] (Wo héctor) 09/06/2022 Procedure visit Pain Medicine Catalino Garrett M D [address] [place] [address] [address] [place] [address] (Wo héctor) 09/21/2022 Office Visit Bariatrics Allen Thompson PA-C 111 [facility], [facility], [address] [place], [place] [address] (Wo rk) documented as of this encounter Visit Diagnoses Not on filedocumented in this encounter
--- OUTSIDE RECORDS SUMMARY | 2022-06-15 07:56 | XMS_ITS | Encounter Summary ---
:1975 Author Organization [facility] Address [address] [place] [address] Care Team Providers Name Role Phone Brian Lindsay MD Primary Care Provider Unavailable Donna Mohr NP Primary Care Provider Juma Herrera MD Primary Care Provider Unavailable Unknown, Provider Primary Care Provider Juma Herrera MD Unavailable Unavailable Juma Herrera MD Primary Care Provider Unavailable Shonda Sánchez FABRICATION SPECIALIST Primary Care Provider [facility], Primary Care Provider [phone] Encounter Details Date Type Department Care Team Description 10/25/2006 Hospital Encounter [facility] [place] - Kj Child MD [id number] [place] [address], [place] [id number] (Wo rk) Social History Tobacco Use Types [...] / COVID-19? documented as of this encounter Plan of Treatment Upcoming Encounters Date Type Specialty Care Team Description 06/25/2022 Telemedicine Neurology Kj Gloria MD PhD 1 [facility], Level [address] [place], [place] [address] (Wo rk) 09/06/2022 Procedure visit Pain Medicine Catalino Garrett M D 62 [facility] [address] [place] [address] (Wo rk) 09/21/2022 Office Visit Bariatrics Allen Thompson PA-C [address] [facility], [facility], Level [address] [place], [place] [address] (Wo rk) documented as of this encounter Procedures Procedure Name Priority Date/Time Associated Diagnosis Comme nts MR LUMBAR SPINE 11/15/2006 10:35 Results for this W/WO CONTRAST EDT procedure are in the results section. documented in this encounter Results MR LUMBAR SPINE W/WO CONTRAST (11/15/2006 10:35 EDT) Anatomical Region Laterality Modality Other Specimen Narrative [facility] - 03/02/2009 10 :54 EDT low back pain,s/p l5-s1 discectomy Lumbar Spine MR with Contrast. Indication: ??Lower back pain following a prior discectomy at the L5-S1 level in 1999. Technique: ??Sagittal T1 and T2 images a re obtained along with transaxial T1 and T2 images and coronal T2 images precontrast. ??After the administration of intravenous contra st, sagittal and axial T1 images are obtained with fat-suppression . There no prior lumber spine MR studies for comparison. Comparison: ??Comparison is made to the prior plain film radiographs dating back to April, and 2006. Findings: Bilateral pars interarticulari s defects at the L5 level are again identified which are easier to dis cern on the prior radiographs, particularly in the year . Patient has had prior right-sided surgery at the L5-S1 level w ith postsurgical changes again identified. On today's examination , there is a recurrent disc herniation seen in a right paracentral l ocation at the L5-S1 level which creates thecal sac effacement, rig ht recess narrowing, and mild right foraminal narrowing. There is clos e proximity of extruded disc material to the exiting right S1 nerve r oot which could result in radiculopathy. Remaining disc space leve ls demonstrate desiccation with loss of normal disc space signal on the long TR scans. ??The conus medullaris ends normally at the L1 -L2 level. At the L4-L5 level, no kay herniation is seen. There is mild disc bulging but no significant central canal stenosis is present. At the L3-L4 level, no disc herniation i s present. No significant central canal stenosis is seen. At the L2-L3 level, no disc herniation, foraminal narrowing, or central canal stenosis is seen. At the L1-L2 level, ??no disc herniation , foraminal narrowing, or central canal stenosis is seen. On the coronal sequence, there is minima l curvature toward the right. Impression: 1. Status post prior right-sided surgery L5-S1 level with postoperative changes noted and evidence of recurrent disc herniation in a right paracentral location which cr eates thecal sac effacement anteriorly as well as right lateral rece ss stenosis and right-sided foraminal narrowing. There may be compre ssion on the exiting right S1 nerve root, which could result in radicu lopathy. 2. Suggestion of bilateral pars defects at the L5 level, better seen on prior radiographs dating back to 1999 . No significant listhesis is seen on the MR examination, although one was detected on recent plain film radiographs from September,, measuring approximately 4 mm by that report. Procedure Note Mark Watts MD - 03/02/2009 low back pain,s/p l5-s1 discectomy Lumbar Spine MR with Contrast. Indication: Lower back pain following a prior discectomy at the L5-S1 level in 1999. Technique: Sagittal T1 and T2 images are obtained along with transaxial T1 and T2 images and coronal T2 images precontrast. After the administration of intravenous contra st, sagittal and axial T1 images are obtained with fat-suppression . There no prior lumber spine MR studies for comparison. Comparison: Comparison is made to the pr ior plain film radiographs dating back to April, and 2006. Findings: Bilateral pars interarticulari s defects at the L5 level are again identified which are easier to dis cern on the prior radiographs, particularly in the year . Patient has had prior right-sided surgery at the L5-S1 level w ith postsurgical changes again identified. On today's examination , there is a recurrent disc herniation seen in a right paracentral l ocation at the L5-S1 level which creates thecal sac effacement, rig ht recess narrowing, and mild right foraminal narrowing. There is clos e proximity of extruded disc material to the exiting right S1 nerve r oot which could result in radiculopathy. Remaining disc space leve ls demonstrate desiccation with loss of normal disc space signal on the long TR scans. The conus medullaris ends normally at the L1 -L2 level. At the L4-L5 level, no kay herniation is seen. There is mild disc bulging but no significant central canal stenosis is present. At the L3-L4 level, no disc herniation i s present. No significant central canal stenosis is seen. At the L2-L3 level, no disc herniation, foraminal narrowing, or central canal stenosis is seen. At the L1-L2 level, no disc herniation, foraminal narrowing, or central canal stenosis is seen. On the coronal sequence, there is minima l curvature toward the right. Impression: 1. Status post prior right-sided surgery L5-S1 level with postoperative changes noted and evidence of recurrent disc herniation in a right paracentral location which cr eates thecal sac effacement anteriorly as well as right lateral rece ss stenosis and right-sided foraminal narrowing. There may be compre ssion on the exiting right S1 nerve root, which could result in radicu lopathy. 2. Suggestion of bilateral pars defects at the L5 level, better seen on prior radiographs dating back to 1999 . No significant listhesis is seen on the MR examination, although one was detected on recent plain film radiographs from September,, measuring approximately 4 mm by that report. Performing Organization Address City/State/ZIP Code Phon e Number [facility] 111 [facility] [address] [facility] [address] [place], [place] [address] documented in this encounter Visit Diagnoses Not on filedocumented in this encounter Additional Health Concerns Infection Onset Date Last Indicated Resolved Time COVID-19 08/15/2021 08/15/2021 09/04/2021 22:15 EST documented as of this encounter Care Teams Continuous Crusher Operator Relationship Specialty Start Date End Date Brian Lindsay MD PCP - General 04/11/11 10/23/11 Donna Mohr, GIULIA PCP - General 10/24/11 09/24/12 [facility] [address] Juma Herrera MD PCP - General 09/25/12 12/07/18 [address] [place] [address] Unknown, Provider, PCP - General 12/08/18 01/06/19 Juma Herrera MD PCP - General 01/07/19 03/13/21 Shonda Sánchez NP PCP - General 03/14/21 01/31/[address] [place] [phone] [facility] [place] PCP - General 02/01/22 [address] [place] [address] Juma Herrera MD 12/08/18 [address] [place] [address] documented as of this encounter
--- OUTSIDE RECORDS SUMMARY | 2022-06-15 07:56 | XMS_ITS | Encounter Summary ---
:1975 Author Organization [facility] Address [address] [place] [address] Care Team Providers Name Role Phone Brian Lindsay MD Primary Care Provider Unavailable Encounter Details Date Type Department Care Team Description 06/06/2011 Documentation Visit [facility] Mary Song PA-C Spine Program - [facility] [address] [facility] Spine [employer] [address] [place], [place] [phone] (Jayjay anaya) Social History Tobacco Use Types Packs/Day Years Used Date Former Smoker Quit: 01/14/20 09 Alcohol Use Standard Drinks/Week Comments Yes 0 (1 standard drink = 0.6 oz pure alcoho l) Sex Assigned at Date Recorded Not on file documented as of this encounter Progress Notes Ulices Granger - 06/06/2011 1530 EDT Uploaded CD to [employer]; sent back to pt. documented in this encounter Plan of Treatment Upcoming Encounters Date Type Specialty Care Team Description 06/25/2022 Telemedicine Neurology Kj Gloria MD PhD 1 [facility], [facility] 2 [place], [place] [address] (Jayjay anaya) 09/06/2022 Procedure visit Pain Medicine Catalino Garrett M D [address] [facility] [address] [place] [address] (Jayjay anaya) 09/21/2022 Office Visit Bariatrics Allen Thompson, ELISABETH 111 [facility], [facility], [facility] 5 [place], [place] [address] (Wo rk) documented as of this encounter Visit Diagnoses Not on filedocumented in this encounter Care Teams Wireworker Supervisor Relationship Specialty Start Date End Date Brian Lindsay MD PCP - General 04/11/11 10/23/11 documented as of this encounter
--- OUTSIDE RECORDS SUMMARY | 2022-06-15 07:56 | XMS_ITS | Encounter Summary ---
:1975 Author Organization [facility] Address [address] [place] [address] Care Team Providers Name Role Phone Brian Lindsay MD Primary Care Provider Unavailable Donna Mohr NP Primary Care Provider Juma Herrera MD Primary Care Provider Unavailable Unknown, Provider Primary Care Provider Juma Herrera MD Unavailable Unavailable Juma Herrera MD Primary Care Provider Unavailable Shonda Sánchez BITUMINOUS PAVING MACHINE OPERATOR Primary Care Provider [facility], Primary Care Provider [phone] Encounter Details Date Type Department Care Team Description 07/17/2007 Hospital Encounter [facility] - Kj Child MD [id number] [place] [address], [place] [phone] (Wo rk) Social History Tobacco Use Types [...] PhD 1 [facility], Level [address] [place], [place] [address] (Wo rk) 09/06/2022 Procedure visit Pain Medicine Catalino Garrett M D 62 [facility] [address] [place] [address] (Wo rk) 09/21/2022 Office Visit Bariatrics Allen Thompson PA-C 111 [facility], [facility], [address] [place], [place] [address] (Wo rk) documented as of this encounter Procedures Procedure Name Priority Date/Time Associated Diagnosis Comme nts L SPINE 2-3 VIEWS 07/17/2007 14:58 Result s for this EST procedure are i n the results section. documented in this encounter Results L SPINE 2-3 VIEWS (07/17/2007 14:58 EST) Anatomical Region Laterality Modality Other Specimen Narrative [facility] - 02/21/2009 2: 59 EDT lbp. s/p l5-s1 decomp/fusion 01/14/07. assess fusion maturation. L SPINE 2-3 VIEWS ??Jul 17, 2007 2:58:00 PM Signs and Symptoms:: ??lbp. ??s/p l5-s1 decomp/fusion 01/14/07. assess fusion maturation. Comparison: 04/10/2007 Findings: And upright lateral view of th e lower lumbar spine and Geronimo view were obtained. The patient has had pedicle screw and beverly fixation of L5-S1. There is minimal anterolisthesis of L5, stable from previously. There is no evidence of hardware failure. Bilateral bone graft is present and a neurostimula tor device overlies L5-S1. Procedure Note Juan Jose Dye MD - 02/21/2009 lbp. s/p l5-s1 decomp/fusion 01/14/07. a ssess fusion maturation. L SPINE 2-3 VIEWS Jul 17, 2007 2:58:00 P M Signs and Symptoms:: lbp. s/p l5-s1 deco mp/fusion 01/14/07. assess fusion maturation. Comparison: 04/10/2007 Findings: And upright lateral view of th e lower lumbar spine and Geronimo view were obtained. The patient has had pedicle screw and beverly fixation of L5-S1. There is minimal anterolisthesis of L5, stable from previously. There is no evidence of hardware failure. Bilateral bone graft is present and a neurostimula tor device overlies L5-S1. Performing Organization Address City/State/ZIP Code Phon e Number [facility] [address] [facility] [address] [facility] [address] [place], [place] [address] documented in this encounter Visit Diagnoses Not on filedocumented in this encounter Additional Health Concerns Infection Onset Date Last Indicated Resolved Time COVID-19 08/15/2021 08/15/2021 09/04/2021 22:15 EST documented as of this encounter Care Teams Sterilization Tech Relationship Specialty Start Date End Date Brian Lindsay MD PCP - General 04/11/11 10/23/11 Donna Mohr NP PCP - General 10/24/11 09/24/[address] [place] [address] Juma Herrera MD PCP - General 09/25/12 12/07/[address] [place] [address] Unknown, Provider, PCP - General 12/08/18 01/06/19 Juma Herrera MD PCP - General 01/07/19 03/13/21 Shonda Sánchez NP PCP - General 03/14/21 01/31/[address] [place] [address] [facility] [place] PCP - General 02/01/22 [address] [place] [address] Juma Herrera MD 12/08/18 [address] [place] [address] documented as of this encounter
--- OUTSIDE RECORDS SUMMARY | 2022-06-15 07:56 | XMS_ITS | Encounter Summary ---
:1975 Author Organization [facility] Address [address] [place] [address] Care Team Providers Name Role Phone Unavailable Primary Care Provider Unavailable Encounter Details Date Type Department Care Team Description 01/02/2007 Before PRISM Converted [facility] - Yuliana Child Visit (Maple) Maple conversion MD Fermín [address] [address] [place] [address] [facility] [phone] [place] [address] Social History Tobacco Use Types Packs/Day Years Used Date Never Assessed Sex Assigned at Date Recorded Not on file documented as of this encounter Progress Notes Kj Child MD - 07/08/20092023 EST Spine [facility] (SpINE) [facility] [address] [facility] [address] [place] [address] PROGRESS/FOLLOWUP NOTE - 01/02/2007 PROBLEM 1. 50% back, 50% right leg pain. A. L5 isthmic spondylolisthesis. B. Status post right L5-S1 diskectomy decompression 1999 (Elissa). C. 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 2. Obesity. A. BMI 38 3. 50 pack year smoking history. A. Smoking cessation October 31, 2006. 4. History of narcotic addiction. A. Sobriety X 3 years. 5. PTSD. 6. Bipolar disorder. 7. Personality disorder. SUBJECTIVE The patient is a 31-year-old female with a long history of back and right leg pain dated 1998 who underwent a right diskectomy and foraminal decompression which she felt made her no better or perhaps slightly worse. She has been treated with multiple episodes of therapy, modalities, pool therapy, land-based therapy, Work Hardening Program; she has been offereda functional synagogue program [facility] and the Level 4 program here whichshe has declined. She has undergone midline epidural, transforaminal epidural steroid injections, trigger point injections and pars defect injections with no long lasting relief. She has had massage therapy, a TENS unit, muscle relaxants and medications. Shehas pain in her back and low in the lumbosacral junction, centrally radiating to the right buttock, lateralthigh and lateral calves. Her symptoms are worsened by activityand motion; she is most comfortable in a semirecumbent position. If she moves just right the leg pain gets significantly worse than the back pain. OBJECTIVE 5/5 all muscle groups. X-rays: AP, flexion, extension lumbar spine films demonstrates a mobile isthmic spondylolisthesis at L5 that reduces on extension. Disk height mildly diminished at L5-S1. MRI demonstrates right sided foraminal stenosis at L5-S1 with associated recurrent disk herniation at L5-S1.EMG demonstrates L5 root irritation. ASSESSMENT 1. Back and right leg pain symptoms consistentwith her spondylolisthesis, foraminal stenosis and recurrent HNP. Discussed options again including expectant management, medications, injections, therapy,or consideration of surgery with surgery being an L5-S1 decompression diskectomy and fusion with iliac crest graft, pedicle screws, ANNETTE fusionstimulator. We discussed the surgery would have a 50% chance of significant improvement, 50% chance no change in her symptoms, 1 or 2% worsened symptoms, the risks and complications including infection, deep venous thrombosis, pulmonary emboli, , neurologic al loss, pseudoarthrosis, hardware failure or migration, increased back pain, leg pain, dural tear, progressive degeneration above or below the surgery were all discussed. She understands these and wishes to pursue surgery. We also discussed her postoperative narcotic use. She has a good support system with a psychiatrist, a counselor and a narcotic Anonymous sponsor. She has already set up a plan for treatment ofhow she is going to be in constant with these individuals for support postoperatively. We discussed that we would use only short acting medications, either Percocet or Dilaudid We would keep her on the medications to get control postoperatively, but gradually start weaning her off so thatat six weeks she would be on no narcotic medication. She and her friendagree with this approach and she will continue to get support; she is fully supportive of that. 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 PLAN 1. L5-S1 decompression diskectomy and fusion, iliac crest graft, pedicle screws, ANNETTE fusion stimulator. 2. Post-op narcotic pain control with Percocet or Dilaudid intraoperative Duramorph and local anestheticpreoperative Neurontin dosing in preop hold. 3. The patient does not want to donate autologous units. Signed by Kj Child MD 01/12/2007 12:20 Wilfrid Taylor MD Kj Child MD - Charmaine Child MD A - cmd Job ID: [id number] Document ID: [id number] cc: Harry Abreu MD documented in this encounter Plan of Treatment Upcoming Encounters Date Type Specialty Care Team Description 06/25/2022 Telemedicine Neurology Kj Gloria MD PhD 1 [facility], [address] [place], [place] [address] (Jayjay anaya) 09/06/2022 Procedure visit Pain Medicine Catalino Garrett M D [address] [facility] [address] [place] [address] (Jayjay anaya) 09/21/2022 Office Visit Bariatrics Allen Thompson PA-C 111 [facility], [address] [place], [place] [address] (Jayjay anaya) documented as of this encounter Visit Diagnoses Not on filedocumented in this encounter
--- OUTSIDE RECORDS SUMMARY | 2022-06-15 07:56 | XMS_ITS | Encounter Summary ---
:1975 Author Organization [facility] Address [address] [place] [address] Care Team Providers Name Role Phone Unavailable Primary Care Provider Unavailable Encounter Details Date Type Department Care Team Description 09/19/2006 Hospital Encounter [facility] - Harry Abreu MD [address] [facility] [address] [place] [address] [address] [phone] [place] [address] (Wo rk) Social History Tobacco Use Types Packs/Day Years Used Date Never Assessed Sex Assigned at Date Recorded Not on file documented as of this encounter Discharge Disposition Disposition Code Departure Means Destination Auto Discharge documented in this encounter Plan of Treatment Upcoming Encounters Date Type Specialty Care Team Description 06/25/2022 Telemedicine Neurology Kj Gloria MD PhD 1 [facility] 2 [place], [place] [address] (Wo rk) 09/06/2022 Procedure visit Pain Medicine Catalino Garrett M D [address] [facility] [address] [place] [address] (Wo rk) 09/21/2022 Office Visit Bariatrics Allen Thompson PA-C 111 [facility], [facility], Level [address] [place], [place] [address] (Wo rk) documented as of this encounter Procedures Procedure Name Priority Date/Time Associated Diagnosis Comme nts PELVIS 1 OR 2 VIEWS 09/19/2006 13:42 Resu lts for this EST procedure are i n the results section. L SPINE 2-3 VIEWS 09/19/2006 13:42 Result s for this EST procedure are i n the results section. documented in this encounter Results L SPINE 2-3 VIEWS (09/19/2006 13:42 EST) Anatomical Region Laterality Modality Other Specimen Narrative [facility] - 03/12/2009 2: 44 EDT LBP. HIP PAIN. S/P L5-S1 DISCECTOMY , L5-S1 SPONDYLOLYSIS. R/O OA. R/O INSTABILITY. X-RAY OF THE LUMBAR SPINE, TWO VIEWS HISTORY: ??Low back pain, hip pain, sta tus post L5-S1 diskectomy 11/1999, L5-S1 spondylolysis, rule out O A, rule out instability. FINDINGS: ??Lateral flexion and extensi on views of the lumbar spine were obtained. There is a bilateral pars defect at L5 with a grade I anterolisthesis of L5 over S1 that is vi sible in flexion. ??It measures 4 mm. In comparison with the x-rays of April 29, 2000, there is mild disk space narrowing at L5-S1. ??The other di sk spaces are normal. ??There is no vertebral abnormality. IMPRESSION: ??Progression of the disk s pace narrowing at L5-S1 in comparison with the x-rays of April 0. Bilateral pars defect at L5 with a grad e I anterolisthesis of L5 over S1 visible in flexion but not in ex tension. [id number] D: ??09/21/2006 16:18 T: ??09/23/2006 13:12 Procedure Note Sweta Peterson MD - 03/12/2009 LBP. HIP PAIN. S/P L5-S1 DISCECTOMY 0, L5-S1 SPONDYLOLYSIS. R/O OA. R/O INSTABILITY. X-RAY OF THE LUMBAR SPINE, TWO VIEWS HISTORY: Low back pain, hip pain, statu s post L5-S1 diskectomy 11/1999, L5-S1 spondylolysis, rule out O A, rule out instability. FINDINGS: Lateral flexion and extension views of the lumbar spine were obtained. There is a bilateral pars defect at L5 with a grade I anterolisthesis of L5 over S1 that is vi sible in flexion. It measures 4 mm. In comparison with the x-rays of April 29, 2000, there is mild disk space narrowing at L5-S1. The other disk spaces are normal. There is no vertebral abnormality. IMPRESSION: Progression of the disk spa ce narrowing at L5-S1 in comparison with the x-rays of April 0. Bilateral pars defect at L5 with a grad e I anterolisthesis of L5 over S1 visible in flexion but not in ex tension. [id number] Performing Organization Address [facility] Phon e Number [facility] [address] [place] [address], T [address] [place] [phone] PELVIS 1 OR 2 VIEWS (09/19/2006 13:42 EST) Anatomical Region Laterality Modality Other Specimen Narrative [facility] - 03/12/2009 2: 44 EDT LBP. HIP PAIN. S/P L5-S1 DISCECTOMY 3/, L5-S1 SPONDYLOLYSIS. R/O OA. R/O INSTABILITY. SINGLE VIEW PELVIS FINDINGS: ??Hips are symmetrical, no pat hologic condition identified. The patient had surgery, but it is not v isible on the AP view. D: ? 09/19/06 T: ? 09/22/06 /[facility] Procedure Note Albaro Watson MD - 03/12/2009 LBP. HIP PAIN. S/P L5-S1 DISCECTOMY 3/0 0, L5-S1 SPONDYLOLYSIS. R/O OA. R/O INSTABILITY. SINGLE VIEW PELVIS FINDINGS: Hips are symmetrical, no patho logic condition identified. The patient had surgery, but it is not v isible on the AP view. /[facility] Performing Organization Address [facility] Phon e Number [facility] [address] [place] [address], T [address] [facility] [address] [place] [phone] documented in this encounter Visit Diagnoses Not on filedocumented in this encounter
--- OUTSIDE RECORDS SUMMARY | 2022-06-15 07:56 | XMS_ITS | Encounter Summary ---
:1975 Author Organization [facility] Address [address] [place] [address] Care Team Providers Name Role Phone Unavailable Primary Care Provider Unavailable Encounter Details Date Type Department Care Team Description 09/29/2007 Results Only [facility] - Dejuan Nguyen PA conversion [address] [place], [place] [id number] Social History Tobacco Use Types Packs/Day Years Used Date Never Assessed Sex Assigned at Date Recorded Not on file documented as of this encounter Plan of Treatment Upcoming Encounters Date Type Specialty Care Team Description 06/25/2022 Telemedicine Neurology Kj Gloria MD PhD 1 [facility] 2 [place] [address] (Jayjay anaya) 09/06/2022 Procedure visit Pain Medicine Catalino Garrett M D [address] [place] [address] [address] [place] [address] (Jayjay anaya) 09/21/2022 Office Visit Bariatrics Allen Thompson PA-C [address] [facility], [address] [place] [address] (Jayjay anaya) documented as of this encounter Procedures Procedure Name Priority Date/Time Associated Diagnosis Comme nts CYTOPATHOLOGY Routine 09/29/2007 0:00 EST Results for this procedure are i n the results section . documented in this encounter Results CYTOPATHOLOGY (09/29/2007 0:00 EST) Pathology Report: CYTOPATHOLOGY REPORT RONNA DANG Reports generated via electronic interface contain efrain ginal data; however they are lacking the format of the original re port. Caution should be taken when reading/interpreting unfo rmatted reports. Name: ? TIA HITCHCOCK ? Accession #: ? [id number] : ? 1975 (Age: 32) ??F ?Collect Date: ? 09/03 Location: ? [facility] ? Receive Date : ? 09/30/2007 Provider: ?DEJUAN AVILA Copy to: ? Specimen/Source: ?ThinPrep Pap Test, E ndocervix, processed on [employer] ThinPrep Imaging System, with manual evaluation Last Menstrual Period: ? 09/22/07 Previous Gynecologic Pathology: ? Yes: H/o atypical squamous cells 06/02 Other: ? HPVA - HPV testing requested if ASC-US on the current ThinPrep Pap test. ? SPECIMEN ADEQUACY ? Satisfactory for Evaluation - transformation zone component present GENERAL CATEGORIZATION ? Negative for Intraepithelial Lesion or Malignan cy INTERPRETATION ? Shift in abram present suggestive of bacterial vaginosis. ? Document reviewed and electronically signed by: ? RUDDY Echevarria(ASCP) ? Report Date: ??10/06/2007 08:44 End of Report Specimen Performing Organization Address City/State/ZIP Code Phon e Number [facility] [address] [place] [address] SERVICES [facility] [address] [place] [address] documented in this encounter Visit Diagnoses Not on filedocumented in this encounter
--- OUTSIDE RECORDS SUMMARY | 2022-06-15 07:56 | XMS_ITS | Encounter Summary ---
:1975 Author Organization [facility] Address [address] [place] [address] Care Team Providers Name Role Phone Brian Estrella MD Primary Care Provider Unavailable Reason for Visit Reason Comments Foot Pain bilateral foot pain, right m ore than left Encounter Details Date Type Department Care Team Description 06/18/2011 Office Visit [facility] Catalino Keys Foot pain, right (Primary Dx); Foot & Ankle Program - DMD Os formerly [facility] [employer] [address] [place] [facility] [address] [phone] Social History Tobacco Use Types Packs/Day Years [...] - - Weight 130.2 kg (287 lb) 06/18/2011 0944 EDT Height 172.7 cm (5' 8) 06/18/2011 0944 EDT Body Mass Index 43.64 06/18/2011 0944 EDT documented in this encounter Ordered Prescriptions Prescription Sig Dispensed Refills Start Date End Date gabapentin (NEURONTIN) 300 Take 1 Cap by mouth 90 Cap 3 06/18/2011 08/16/2011 mg capsuleIndications: 3 times daily for Foot pain, right 30 days. documented in this encounter Progress Notes Catalino Keys MD - 06/18/2011 1111 EDT Diagnosis: Encounter Diagnoses Name Primary? Foot pain, right Yes ??? Os trigonum Hannahoxana Spain is being seen today for Foot Pain We have been asked to see her in consultation by Dr. Song. HPI: Ms Spain is a 36-year-old, 5 feet 8-inch, 287-pound young lady who has bilateral sore feet, right worse than the left. This has been going on for several months. The pain she has is a burning and pins and needles that is really everywhere in the right foot, and to a much lesser extent in the left. This is made worse by walking, and by the end of the day, she has a lot of swelling that tends to accentuate this. In addition she has a sense that her fifth metatarsal feels broken. The foot aches all of the time, and by the end of the day, radiates proximally. She has had no specific injuries to either foot. She does note that she has had 2 surgeries on her back in 1999 and 2006. The most recent was by Dr Child, which was an L5-S1 fusion. She most recently was seen by Bro Song in the spine clinicand had an EMG that apparently showed a tarsal tunnel. Therefore, we have been asked to see her in consultation regarding the etiology and treatment options for her foot pain. She apparently has also been seen by a bilingual hr generalist up in [facility] by the name of Bc. He did not know what the pain was from and referred her to a neurologist who got her started on gabapentin. She currently rates her pain a 6/10 and the pain is burning and cramping. Her functional evaluation varies, depending upon how bad her pain is, and when it is bad, she is really unable to do much of anything. She does not use any walking aids, does require a banister for climbing steps and has pain on all surfaces. She does not pursue any strenuous athletic type activities. PAST MEDICAL HISTORY: Significant for depression, some breathing problems, weight problems, eye problem. MEDICATIONS: Are as noted on PRISM. She is allergic to CODEINE. She does not smoke and drinks very rarely. She is continuing to work. Past Medical History Diagnosis Date ??? Bipolar disorder ??? PTSD (post-traumatic stress disorder) ??? Personality disorder ??? Plantar fasciitis ??? Drug abuse ??? Arthritis ??? Kidney disease ??? Diabetes mellitus ??? Heart disease ??? Hypertension Past Surgical History Procedure Date ??? Spinal fusion L5-S1 Dr. Child 2006 ??? Laminectomy L5-S1 Dr. Bowers 1999 ??? Cholecystectomy ??? Tubal ligation History Substance Use Topics ??? Smoking status: Former Smoker Quit date: 01/13/2009 ??? Smokeless tobacco: Not on file ??? Alcohol Use: Yes No family history on file. Current Outpatient Prescriptions Medication Sig Dispense Refill ??? gabapentin (NEURONTIN) 300 mg capsule Take 1 Cap by mouth 3 times daily for 30 days. 90 Cap 3 ??? ACETAMINOPHEN (TYLENOL ORAL) Take by mouth. [...] Allergen Reactions ??? Codeine Review of Systems A ten point review of systems was performed. Pertinent positives are listed below, all others are negative: Musculoskeletal: positive for as per HPI height is 172.7 cm (68) and weight is 130.182 kg (287 lb). Pain Vitals: Pain Location: Foot (bilateral) Bui-Nicole Pain Rating (Scale 0-10): Hurts worst Numeric Pain Level (Scale 1-10): 10 Pain in another site? : No Pain Quality: Burning;Pins and needles;Tingling (swelling) Pain Duration: Continuous Pain Aggravating Factors: movement General appearance: alert, no distress Physical examination today shows that her hand exam is completely within normal limits. DTR's are 2+at both knees and ankles with intact pulses throughout. Sensation to light touch is intact on the left LE. Skin is intact with no fat pad atrophy noted. Passive range of motion of the ankles, subtalar and midfoot joints are all within normal limits. Motor function about either ankle is within normal limits. She has normal arches. She has an antalgic gait favoring the right. Overall alignment of the ankles, midfeet, and hindfeet bilaterally is within normal limits. She has no plantar calluses underneath the metatarsal heads. Alignment of her great toes bilaterally are within normal limits. She has normal motion on dorsiflexion, plantarflexion of both first metatarsophalangeal joints. There is normal flexibility and negative grind test on both first MTP joints. She has no hammertoes that are flexible or fixed and her toenails are normal in appearance. Anxiety index is 5/10. Pertinent positive findings: On her right foot, her sensation is diminished in the distribution of L5 and she has some paresthesias in S1. Her motor function about either ankle, however, is completely normal including the EHL. On the right ankle, she has tenderness about the FHL at the fibroosseous tunnel. She has tenderness in the tarsal tunnel on the right, but has negative percussion and compression signs. She also has negative percussion and compression signs over the sural nerve posterior to the peroneal tendons in the heel. Standing radiographs of the right foot and ankle are taken today. The foot films are unremarkable except for a bipartite tibial sesamoid. The ankle films are also unremarkable. 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 Plan: It is not entirely clear to me the source of the pain and swelling that Ms Spain has. Although she reportedly has an EMG that shows a tarsal tunnel syndrome, her symptoms certainly do not go along withit since her paresthesias are not in the distribution of the tibial nerve as well as the fact that she has significant swelling which one would not get with tarsal tunnel syndrome. However, she does have an abnormality associated with the presumed os trigonum that may be accounting for some of her symptoms. Therefore, we will immobilize her to begin with to see if, from a diagnostic standpoint, this settles down some of her symptoms. We will see her in 6 weeks' time for reevaluation. In the meantime, she will continue with her gabapentin. 1. Foot pain, right ANKLE 3 OR MORE VIEWS, FOOT 3 OR MORE VIEWS, AIRCAST SHORT WALKING BOOT (AIRCASTBOOT), gabapentin (NEURONTIN) 300 mg capsule 2. Os trigonum Other Orders Placed This Visit Procedures ??? AIRCAST SHORT WALKING BOOT ??? ANKLE 3 OR MORE VIEWS ??? FOOT 3 OR MORE VIEWS Imaging for next visit:none Follow up: Return in about 6 weeks (around 07/30/2011). Cc: Referring Provider - Dr. Song PCP - BRIAN ESTRELLA MD documented in this encounter Procedure Notes Proposal Lead Writer, Donny - 07/09/2011 1008 ESTAssociated Order(s): ORDERS - SCANNED documented in this encounter Plan of Treatment Upcoming Encounters Date Type Specialty Care Team Description 06/25/2022 Telemedicine Neurology Kj Gloria MD PhD 1 [facility] 2 [place] [address] (Wo rk) 09/06/2022 Procedure visit Pain Medicine Catalino Garrett M D [address] [facility] [address] [place] [address] (Wo rk) 09/21/2022 Office Visit Bariatrics Allen Thompson, ELISABETH 111 [facility], [address] [place], [place] [address] (Wo rk) documented as of this encounter Procedures Procedure Name Priority Date/Time Associated Diagnosis Comme nts ORDERS - SCANNED 07/09/2011 10:08 Results for this EST procedure are i n the results section. FOOT 3 OR MORE Routine 06/18/2011 11:05 Foot pain, right Resul ts for this VIEWS EDT procedure are i n the results section. ANKLE 3 OR MORE Routine 06/18/2011 11:05 Foot pain, right Resu lts for this VIEWS EDT procedure are i n the results section. documented in this encounter Results ORDERS - SCANNED (07/09/2011 10:08 EST) Specimen Narrative This result has an attachment that is no t available. Transcriptions Proposal Lead Writer, Scan - 07/09/2011 10:[address] FOOT 3 OR MORE VIEWS (06/18/2011 11:05 EDT) Anatomical Region Laterality Modality Other Specimen Narrative [facility] - 06/02 14:41 EDT ANKLE 3 OR MORE VIEWS ??Jun 18, 2011 11:05:00 AM Signs and Symptoms/Comments: ??729.5-NATTY N IN [id number]-9-CM assess for DJD Technique: AP, mortise, and lateral weig ht-bearing views of the right ankle are obtained along with AP, obliqu e, and lateral weight-bearing views of the right foot. Findings: Bone mineralization is normal for age. J oint spaces are aligned and intact without evidence of osteoarthrosi s. Os trigonum and is noted. No fracture or evidence of healing fract ure is identified. I have personally reviewed the images an d the above interpretation and agree with the findings. Procedure Note French Santos MD - 06/18/2011 ANKLE 3 OR MORE VIEWS Jun 18, 2011 11:05 :00 AM Signs and Symptoms/Comments: 729.5-PAIN IN [id number]-YPY-3-CM assess for DJD Technique: AP, mortise, and lateral weig ht-bearing views of the right ankle are obtained along with AP, obliqu e, and lateral weight-bearing views of the right foot. Findings: Bone mineralization is normal for age. J oint spaces are aligned and intact without evidence of osteoarthrosi s. Os trigonum and is noted. No fracture or evidence of healing fract ure is identified. I have personally reviewed the images an d the above interpretation and agree with the findings. Performing Organization Address City/State/ZIP Code Phon e Number [facility] ANKLE 3 OR MORE VIEWS (06/18/2011 11:05 EDT) Anatomical Region Laterality Modality Other Specimen Narrative [facility] - 06/02 14:41 EDT ANKLE 3 OR MORE VIEWS ??Jun 18, 2011 11:05:00 AM Signs and Symptoms/Comments: ??729.5-NATTY N IN KIIJ-EML-5-CM assess for DJD Technique: AP, mortise, and lateral weig ht-bearing views of the right ankle are obtained along with AP, obliqu e, and lateral weight-bearing views of the right foot. Findings: Bone mineralization is normal for age. J oint spaces are aligned and intact without evidence of osteoarthrosi s. Os trigonum and is noted. No fracture or evidence of healing fract ure is identified. I have personally reviewed the images an d the above interpretation and agree with the findings. Procedure Note French Santos MD - 06/18/2011 ANKLE 3 OR MORE VIEWS Jun 18, 2011 11:05 :00 AM Signs and Symptoms/Comments: 729.5-PAIN IN JOIM-KFZ-3-CM assess for DJD Technique: AP, mortise, and lateral weig ht-bearing views of the right ankle are obtained along with AP, obliqu e, and lateral weight-bearing views of the right foot. Findings: Bone mineralization is normal for age. J oint spaces are aligned and intact without evidence of osteoarthrosi s. Os trigonum and is noted. No fracture or evidence of healing fract ure is identified. I have personally reviewed the images an d the above interpretation and agree with the findings. 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
--- OUTSIDE RECORDS SUMMARY | 2022-06-15 07:56 | XMS_ITS | Encounter Summary ---
:1975 Author Organization [facility] Address [address] [place] [address] Care Team Providers Name Role Phone Unavailable Primary Care Provider Unavailable Encounter Details Date Type Department Care Team Description 12/29/2009 Abstract Used for ABSTRACTING Data Unknown, Doctor Lumbar radiculopathy [phone] Social History Tobacco Use Types Packs/Day Years Used Date Never Assessed Sex Assigned at Date Recorded Not on file documented as of this encounter Plan of Treatment Upcoming Encounters Date Type Specialty Care Team Description 06/25/2022 Telemedicine Neurology Kj Gloria MD PhD 1 [facility] 2 [place], [place] [address] (Wo rk) 09/06/2022 Procedure visit Pain Medicine Catalino Garrett M D [address] [place] [address] [address] [place] [address] (Wo rk) 09/21/2022 Office Visit Bariatrics Allen Thompson PA-C 111 [facility], [address] [place], [place] [address] (Wo rk) documented as of this encounter Visit Diagnoses Diagnosis Lumbar radiculopathy Thoracic or lumbosacral neuritis or radi culitis, unspecified documented in this encounter
--- OUTSIDE RECORDS SUMMARY | 2022-06-15 07:56 | XMS_ITS | Encounter Summary ---
:1975 Author Organization [facility] Address [address] [place] [address] Care Team Providers Name Role Phone Brian Lindsay MD Primary Care Provider Unavailable Encounter Details Date Type Department Care Team Description 06/29/2011 Abstract [facility] Foot & Catalino Lorenzo MD Ankle Program - [facility] [address] [facility] [address] [place], [place] [phone] (Wo rk) Social History Tobacco [...] PhD 1 [facility], Level [address] [place], [place] [address] (Wo rk) 09/06/2022 Procedure visit Pain Medicine Catalino Garrett M D [address] [facility] [address] [place] [address] (Wo rk) 09/21/2022 Office Visit Bariatrics Allen Thompson, ELISABETH [address] [facility], [address] [place], [place] [address] (Wo rk) documented as of this encounter Visit Diagnoses Not on filedocumented in this encounter Care Teams Protective Services Social Worker Relationship Specialty Start Date End Date Brian Lindsay MD PCP - General 04/11/11 10/23/11 documented as of this encounter
--- OUTSIDE RECORDS SUMMARY | 2022-06-15 07:56 | XMS_ITS | Encounter Summary ---
:1975 Author Organization [facility] Address [address] [place] [address] Care Team Providers Name Role Phone Unavailable Primary Care Provider Unavailable Encounter Details Date Type Department Care Team Description 04/10/2007 Before PRISM Converted [facility] - Yuliana Child Visit (Maple) Maple conversion MD Fermín [address] [address] [facility] [phone] [place] [phone] Social History Tobacco Use Types Packs/Day Years Used Date Never Assessed Sex Assigned at Date Recorded Not on file documented as of this encounter Progress Notes Kj Child MD - 07/09/2009 0931 EST [facility] [place] [facility] [place] (Sp[facility]) [facility] [address] [place] [address] PROGRESS/FOLLOWUP NOTE - 04/10/2007 PROBLEM 1: 50% back, 50% right leg [...] PROBLEM 7: Personality disorder SUBJECTIVE Patient returns for routine follow-up. Notes she has had significant improvement in her back and legsymptoms although she continues to have discomfort. She notes now she really has no back pain. She will get discomfort in her buttocks, posterolateral thighs and calves bilaterally. It is intermittent.Nothing in particular seems to exacerbate or relieve it. She notes she will go several days with no symptoms and then a couple of days with symptoms. Physical therapy with massage and exercise is helping significantly. She is taking only occasional Tylenol. She is taking no other medications. She doeshave Advil which she uses which have been helpful for her migraines. She is working four hours a day, two days a week. OBJECTIVE Incisions well healed, neurologically intact. X-rays: AP and lateral show her hardware in good position. No evidence of halos, loosening or migration. Fusion consolidating appropriately. ASSESSMENT Patient making slow but appropriate progress. We will plan on increasing her work back to her normaltwo days a week level. PLAN 1. Physical therapy for progressive strengthening and modalities as needed. 2. Begin to work six hours a day, two days a week for three weeks and then eight hours a day, two days a week as tolerated, 20 lb. lifting limit and bending and lifting to tolerance. 3. Follow-up in 3 months, AP Geronimo and lateral to be obtained prior to being seen. Signed by Kj Child MD 05/01/2007 18:50 Wilfrid Taylor MD Kj Child MD -Kj Child MD -[facility] Job ID: [id number] Doc ID: [id number] cc: DO Brian Petersen MD documented in this encounter Plan of Treatment Upcoming Encounters Date Type Specialty Care Team Description 06/25/2022 Telemedicine Neurology Kj Gloria MD PhD 1 [facility], Level 2 [place], [place] [address] (Jayjay anaya) 09/06/2022 Procedure visit Pain Medicine Catalino Garrett M D [address] [facility] [address] [place] [address] (Jayjay anaya) 09/21/2022 Office Visit Bariatrics Allen Thompson, ELISABETH 111 [facility], [facility], Level 5 [place], [place] [address] (Wo rk) documented as of this encounter Visit Diagnoses Not on filedocumented in this encounter
--- OUTSIDE RECORDS SUMMARY | 2022-06-15 07:56 | XMS_ITS | Encounter Summary ---
:1975 Author Organization [facility] Address [address] [place] [address] Care Team Providers Name Role Phone Brian Lindsay MD Primary Care Provider Unavailable Reason for Visit Reason Comments Foot Pain Encounter Details Date Type Department Care Team Description 06/15/2011 Office Visit [facility] Raysa Levine MD Lumbar radiculopathy; Spine Program - [address] [place] [address] Tarsal tunnel syndrome of right side [facility] Spine [address] Elder Xiong [address] [address] (Wo rk) Social History Tobacco Use Types Packs/Day Years Used Date Former Smoker Quit: 01/14/20 09 Alcohol Use Standard Drinks/Week Comments Yes 0 (1 standard drink = 0.6 oz pure alcoho l) Sex Assigned at Date Recorded Not on file documented as of this encounter Progress Notes Raysa Levine MD - 06/19/2011 1400 EDT This office note has been dictated. documented in this encounter Procedure Notes Raysa Levine MD - 06/20/2011 1447 EDT [facility] [place] [facility] [place] (SpINE) [facility] Rehabilitation [address] [place] [address] ELECTRODIAGNOSTIC MEDICINE CONSULTATION SERVICE DATE: 06/15/2011 PERFORMING PHYSICIAN: Raysa Levine MD REFERRING PHYSICIAN: Brian Lindsay MD REFERRING PROVIDER: MARGARITA Cee SUBJECTIVE: Hannah Spain is a 36-year-old who was referred to me by Tk Song for electrodiagnostic studies. Reviewing his comprehensive evaluation, she has had a history of chronic low back pain. Moreremotely, she has undergone a L5-S1 diskectomy, decompression 1999 followed by L5-S1 decompression fusion 01/06, Dr Child, for isthmic spondylolisthesis. Her medical history is also significant for obesity. About 6 months ago, she developed pain, burning in both of her feet. She denies it is made worse by standing or any increasing activity. She has numbness and tingling in both feet, more so on the right. Her work is made difficult. 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 Her pain today is up toa 10, is present all the time. PAST MEDICAL HISTORY: Bipolar disorder, PTSD, plantar fasciitis, drug abuse, migraines. She does notsmoke. She has no history of diabetes, thyroid disease or cancer. MEDICATIONS: Gabapentin 300 three times daily. Topamax 200 twice a day. Norvasc 2.5 daily. Cymbalta 60 daily. OBJECTIVE: She is anxious. Lower extremities examined, 1+ edema of both feet. Muscle stretch reflexes are 2 quads Achilles, intact pulses both lower extremities. Strength in the lower extremities is 5/5. Gait is antalgic on the right. Inspection of the right calf: There is a small area of dried scabbing in the region of the posterior anterior calf. NERVE CONDUCTION STUDY: Nerve Distal Latency Evoked Nerve Conduction Comments (NI<3.6) Response Velocity Amplitude Right sural sensory 2.9 9 mcV Right superficial peroneal 4.0 4 mcV Right tibial motor study 4.5 7.2 42 m/sec second F-wave for tibial 52 msec Peroneal study from the ankle_ no response at the ankle Fibular head amplitude 12 msec 0.5 50 F-wave for the peroneal could not be elicited. Medial lateral plantar nerves of the right foot unelicitable. EMG of the right vastus lateralis, vastus medialis, rectus femoris, tibialis anterior, medial lateral gastroc, abductor hallucis and foot intrinsic study. FINDINGS: Sensory studies of the right sural and superficial peroneal are within normal limits. Motor conduction study of the right tibial nerves is completely normal. F wave passed freely with no latency delay of the right tibial. The peroneal motor was abnormal with not elicitable F-wave. Medial andlateral plantar nerves could not be elicited. There was significant foot swelling. EMG revealed large motor units, which were polyphasic of the tibialis, medial and lateral gastroc. There was 1+ positive sharp waves, fibrillations of the abductor hallucis and the foot intrinsics. IMPRESSION: This is an abnormal electrodiagnostic study. There is electrodiagnostic evidence of a chronic right L5 radiculopathy. There is also evidence of active denervation in abductor hallucis with absence of the medial and lateral plantar nerves. This is concordant with a mild tarsal tunnel syndrom e.Clinically, she also has evidence of plantar fascitis. RECOMMENDATIONS: 1. Continue gabapentin 300 t.i.d. 2. Consultation by a emergency specialist regarding possibility of a mild right tarsal tunnel syndrome. All findings were reviewed with the patient. All questions were answered. Electronically Signed by Raysa Levine MD 07/03/2011 22:00 Raysa Levine MD - Raysa Levine MD P - CD Job ID: SM Doc ID: [id number] Ext Doc ID: [id number] cc: MARGARITA Koehler MD documented in this encounter Plan of Treatment Upcoming Encounters Date Type Specialty Care Team Description 06/25/2022 Telemedicine Neurology Kj Gloria MD PhD 1 [facility] 2 [place], [place] [address] (Jayjay anaya) 09/06/2022 Procedure visit Pain Medicine Catalino Garrett M D 62 [facility] [address] [place] [address] (Jayjay anaya) 09/21/2022 Office Visit Bariatrics Allen Thompson, ELISABETH [address] [place] [address], [facility], Level 5 [place], [place] [address] (Wo rk) documented as of this encounter Visit Diagnoses Diagnosis Lumbar radiculopathy Thoracic or lumbosacral neuritis or radi culitis, unspecified Tarsal tunnel syndrome of right side Tarsal tunnel syndrome documented in this encounter Care Teams Oceanographer Physical Relationship Specialty Start Date End Date Brian Lindsay MD PCP - General 04/11/11 10/23/11 documented as of this encounter
--- OUTSIDE RECORDS SUMMARY | 2022-06-15 07:56 | XMS_ITS | Encounter Summary ---
:1975 Author Organization [facility] Address [address] [place] [address] Care Team Providers Name Role Phone Unavailable Primary Care Provider Unavailable Encounter Details Date Type Department Care Team Description 04/04/2011 Results Only [facility]- PRISM Haritha Hinkle MD [phone] [place] [address] Social History Tobacco Use Types Packs/Day Years Used Date Never Assessed Sex Assigned at Date Recorded Not on file documented as of this encounter Plan of Treatment Upcoming Encounters Date Type Specialty Care Team Description 06/25/2022 Telemedicine Neurology Kj Gloria MD PhD 1 [facility] Level 2 [place], [place] [address] (Wo rk) 09/06/2022 Procedure visit Pain Medicine Catalino Garrett M D [address] [place] [address] [address] [place] [address] (Wo rk) 09/21/2022 Office Visit Bariatrics Allen Thompson PA-C 111 [facility], Level 5 [place], [place] [address] (Wo rk) documented as of this encounter Procedures Procedure Name Priority Date/Time Associated Diagnosis Comme nts PAP TEST- RESULT Routine 04/04/2011 0:00 EDT Resu lts for this ONLY procedure are i n the results section. documented in this encounter Results PAP TEST- RESULT ONLY (04/04/2011 0:00 EDT) Pathology Report: CYTOPATHOLOGY REPORT ? FRIEND ALL EN ? LAB Reports generated via electr onic interface contain original data; ? however they are lacking the format of the original report. ? Caution should be taken when reading/interpreting unformatted reports. ? Name: ? TIA HICTHCOCK ? Accession #: ? [id number] ? : ? 1975 (Age: 35) ??F ?Collect Date: ? 04/04/2011 ? Location: ? [facility] ? Receive Date: ? 04/06/2011 ? Provider: ?HARITHA S KE NNY MD ? Copy to: ? Specimen/Source: ? Pap Test, Cervix/Endocervix, ThinPrep Imaging System ? with manual evaluation ? Last Menstrual Period: ? SPECIMEN ADEQUACY ? Satisfactory for Eval uation ? - transformation zone compon ent present ? - scant squamous epithelial component secondary to excessive mucus ? GENERAL CATEGORIZATION ? Negative for Intraepi thelial Lesion or Malignancy ? Document reviewed and electr onically signed by: ? Shonda Clementeg, CT(ASCP) ? Report Date: ??08/09/ 2011 14:43 ? End of Report ? Specimen Performing Organization Address City/State/ZIP Code Phon e Number [facility] [address] [place] [address] SERVICES [facility] [address] [place] [address] documented in this encounter Visit Diagnoses Not on filedocumented in this encounter
--- OUTSIDE RECORDS SUMMARY | 2022-06-15 07:56 | XMS_ITS | Encounter Summary ---
:1975 Author Organization [facility] Address [address] [place] [address] Care Team Providers Name Role Phone Unavailable Primary Care Provider Unavailable Encounter Details Date Type Department Care Team Description 11/18/2006 Before PRISM Converted [facility] - Yuliana Child Visit (Maple) Maple conversion MD Fermín [address] [address] [place] [address] [facility] [phone] [place] [phone] Social History Tobacco Use Types Packs/Day Years Used Date Never Assessed Sex Assigned at Date Recorded Not on file documented as of this encounter Progress Notes Kj Child MD - 07/05/2009 1007 EST [facility] [place] [facility] [place] (SpINE) Orthopaedics and Rehabilitation 158 [facility] [address] [facility] [address] TELEPHONE CONVERSATION - 11/18/2006 SUBJECTIVE I spoke with Ms. Spain to review her MRI. She continues to complain of 50% back and 50% right leg pain in her buttock, lateral thigh and lateral calf. She continues to work 16 hours a week and she stopped smoking October 31, 2006. OBJECTIVE Review of her MRI demonstrates that she does have a right L5-S1 disk bulge with abutment of her S1 nerve root and some mild right sided L5-S1 foraminal stenosis secondary to her spondylolisthesis. ASSESSMENT I discussed with Ms. Spain again the nature of these findings and the options including expectant management, TENS unit, physical therapy, Lyricaalternative therapies or consideration of surgery with the nature of surgery being an L5-S1 decompression and fusion with iliac crest graft, pedicle screws and a ANNETTE stimulator. I discussed that that surgery would have a 50% chance improvement of symptoms, 50% no change and 1 or 2% worsened symptoms with the attendantrisks and complications including infection, DVT, pulmonary emboli, , neurologic loss, pseudoarthrosis, hardware failure, migration, increased back pain, leg pain, dural tear, progressive degenerative. She states that she has tried multip le options already and if 50% change of improvement is good enough she would like to pursue it. Based on that she wants to pursue surgical intervention. PLAN 1. L5-S1 decompression fusion ICBG pedicle screws, ANNETTE fusion stimulator. 2. The patient will return to the office for consenting. 3. I will have my nurse call to begin the authorization and surgical scheduling process. Signed by Kj Child MD 11/25/2006 11:50 Wilfrid Taylor MD Kj Child MD - Kj Child MD A - d Job ID: [id number] Document ID: [id number] cc: MARGARITA Chaudhari MD - Charmaine Child MD A - d Job ID: [id number] Document ID: [id number] cc: MARGARITA Chaudhari MD documented in this encounter Plan of Treatment Upcoming Encounters Date Type Specialty Care Team Description 06/25/2022 Telemedicine Neurology Kj Gloria MD PhD 1 [facility], Level 2 [place], [place] [address] (Jayjay anaya) 09/06/2022 Procedure visit Pain Medicine Catalino Garrett M D 62 [facility] [address] [place] [address] (Jayjay anaya) 09/21/2022 Office Visit Bariatrics Allen Thompson, ELISABETH 111 [facility] venue [facility], [facility], Level 5 [place], [place] [address] (Wo rk) documented as of this encounter Visit Diagnoses Not on filedocumented in this encounter
--- OUTSIDE RECORDS SUMMARY | 2022-06-15 07:56 | XMS_ITS | Encounter Summary ---
:1975 Author Organization [facility] Address [address] [place] [address] Care Team Providers Name Role Phone Unavailable Primary Care Provider Unavailable Encounter Details Date Type Department Care Team Description 04/29/2000 Hospital Encounter [facility] - Kj Child MD [address] [address] [facility] [phone] [place] [address] (Jayjay rk) Social History Tobacco Use Types Packs/Day Years Used Date Never Assessed Sex Assigned at Date Recorded Not on file documented as of this encounter Discharge Disposition Disposition Code Departure Means Destination Auto Discharge documented in this encounter Plan of Treatment Upcoming Encounters Date Type Specialty Care Team Description 06/25/2022 Telemedicine Neurology Kj Gloria MD PhD 1 [facility] 2 [place], [place] [phone] (Wo rk) 09/06/2022 Procedure visit Pain Medicine Catalino Garrett M D 62 [facility] [address] [place] [address] (Wo rk) 09/21/2022 Office Visit Bariatrics Allen Thompson PA-C 111 [facility], Level 5 [place], [place] [address] (Wo rk) documented as of this encounter Procedures Procedure Name Priority Date/Time Associated Diagnosis Comme nts L SPINE 1 VIEW Routine 04/29/2000 9:59 EDT Result s for this procedure are i n the results section. L SPINE 2-3 VIEWS Routine 04/29/2000 9:59 EDT Res ults for this procedure are i n the results section. documented in this encounter Results L SPINE 1 VIEW (04/29/2000 9:59 EDT) Anatomical Region Laterality Modality Other Specimen Narrative [facility] - 07/12/2009 18 :59 EST PAIN WITH MOVEMENT. ??S/P L5-S1 DISCECTOMY. R/O DEGENERATIVE INSTABILITY. AP AND LATERAL FLEXION EXTENSION LUMBAR SPINE 04/29/00 FINDINGS: AP and lateral flexion/extension views. The lateral examination demonstrates an L5 pars defect. There may be 1-2mm of anterior subluxation of L5, but the L5-S1 disc space appears relatively normal. The remaining disc sp aces and all vertebral body heights are unremarkable. The SI joints are grossly intact. The bone density is normal. D 05/01/00 T 05/02/00 /marichuy Procedure Note Yao Hedrick MD - 07/12/2009 PAIN WITH MOVEMENT. S/P L5-S1 DISCECTOMY . R/O DEGENERATIVE INSTABILITY. AP AND LATERAL FLEXION EXTENSION LUMBAR SPINE 04/29/00 FINDINGS: AP and lateral flexion/extension views. The lateral examination demonstrates an L5 pars defect. There may be 1-2mm of anterior subluxation of L5, but the L5-S1 disc space appears relatively normal. The remaining disc sp aces and all vertebral body heights are unremarkable. The SI joints are grossly intact. The bone density is normal. D 05/01/00 T 05/02/00 /marichuy Performing Organization Address City/State/ZIP Code Phon e Number [facility] [address] [facility] [address] [facility] [address] [place], [place] [address] L SPINE 2-3 VIEWS (04/29/2000 9:59 EDT) Anatomical Region Laterality Modality Other Specimen Narrative [facility] - 07/12/2009 18 :59 EST PAIN WITH MOVEMENT. ??S/P L5-S1 DISCECTOMY. R/O DEGENERATIVE INSTABILITY. Procedure Note Yao Hedrick MD - 07/12/2009 PAIN WITH MOVEMENT. S/P L5-S1 DISCECTOMY . R/O DEGENERATIVE INSTABILITY. Performing Organization Address City/State/ZIP Code Phon e Number [facility] 111 [facility], [facility] [address] [facility] [address] [place], [place] [address] documented in this encounter Visit Diagnoses Not on filedocumented in this encounter
--- OUTSIDE RECORDS SUMMARY | 2022-06-15 07:56 | XMS_ITS | Encounter Summary ---
:1975 Author Organization [facility] Address [address] [place] [address] Care Team Providers Name Role Phone Unavailable Primary Care Provider Unavailable Encounter Details Date Type Department Care Team Description 10/25/2006 Before PRISM Converted [facility] [place]uliana Child Visit (Maple) Maple conversion MD Fermín [address] [address] [facility] [phone] [place] [id number] Social History Tobacco Use Types Packs/Day Years Used Date Never Assessed Sex Assigned at Date Recorded Not on file documented as of this encounter Consult Notes Kj Child MD - 07/05/2009 1053 EST [facility] ([facility]) [facility] [address] [facility] [address] [place] [id number] CONSULTATION - P#1: 50% back, 50% right leg pain A. L5 isthmic spondylolisthesis B. S/P right L5-S1 discectomy and decompression, 1999 (Elissa) P#2: Obesity A. BMI 38 P#3: 50 pack year smoking history P#4: History of narcotic addiction A. 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 She was subsequently seen by Dr. Bowers and underwent a right L5-S1 discectomy and foraminal decompression which she felt made her no better and perhaps slightly worse. She has been treated with multiple episodes of physical therapy with modalities, pool therapy, land based program, workhardening program. She has been offered a Functional Muslim program at [facility] as well as a Level 4 program here which she has declined. Each time she has undergone injections including injections of the pars defect, midline epidurals, transforaminal injections and trigger point injections withno longlasting relief. She has occasionally used a brace which was somewhat helpful. She has had anti-inflammatories, occasional pain medications and muscle relaxants, all of which gave her only short term relief. She hashad massage therapy, TENS unit with no longlasting relief. She notes the pain is in the center and the right side of her lumbosacral junction to the upper buttock, lateral thigh and occasionally lateral calf. She notes 50% back, 50% leg pain. She notes if she moves just right she will get the leg pain which will overtake her back symptoms significantly. She notes the symptoms tend to be worsened by moving in just the right way although it is unpredictable as to what motion will precipitate the symptoms. She is most comfortable in a semi recumbent position. She denies fevers, chills, night sweats, weight loss or loss of bowel or bladder control. Past medical history: Allergy to Codeine causing nausea. Medications: Cymbalta, 60 mg. QD, Norvasc,25 mg. QD, Lamictal, 100 mg. bid, Ibuprofen, QD, Soma, 350 mg. once or twice a week. Surgeries: S/P tubal ligation 1980, S/P cholecystectomy, 1980, S/P knee arthroscopy. Social history: Patient is divor darian, currently has a live-in boyfriend who has been her partner for the last three years. She smokesone to three packs a day but is currently on a smoking cessation program. 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 Her boss does allow her to frequently change positions or limit her lifting on a day to day basis as necessary depending on her symptoms. O: 5 ft. 8, 247 pounds. BMI 37. Cooperative woman. She has 1/5 Homa signs. She ambulates with an antalgic gait on the right. She is able to heel walk and toe walk. Her sensation is intact to light touch and proprioception. She has some antalgic breakaway strength of her right quadriceps but 5/5 allmuscle groups, negative straight leg raising. X-rays: Flex-ex lateral lumbar spine films demonstratean L5 isthmic spondylolisthesis with 5 mm. of displacement that is mobile. Disc space heights mildlydiminished at L5-S1, well preserved at levels above. EMG suggestive of L5 root irritation but no kay electrophysiologic abnormality. She has hadprevious MRIs, appears to have been in 2001 at [facility], none more recently. A; Woman with back and right leg pain, symptoms could be consistent with her spondylolisthesis and some foraminal stenosis. I discussed these symptoms and options including expectant management, doing further treatment with injections and therapy is unlikely to make significant improvement in her overall symptom complex. I discussed the importance of a regular exercise program to decrease deconditioning, however. I discussed alternative treatments as well as surgeries, deciding on whether to pursue surgical intervention would require further testing with an MRI, more recently to assess for nerve root impingement and foraminal stenosis. I discussed that if surgery were neyda performed it would include most likely a decompression and fusion, that that surgery given her medical comorbidities and her circumstances would be about a 50% chance of improvement of symptoms, 50% no change, and 1 or 2% worsened symptoms with the attendant risks and complications. I discussed that she has rather risk factors that would make it problematic in pursuing surgery and decrease her likelihood of a good outcome. Those include a previous history of narcotic dependence, some of her psychosocial issues and her smoking. We discussed that if she were to have surgery we certainly wouldndo it while she was smoking. Shewould have to be completely off nicotine patches and cigarettes for at least 30 days. I discussed with her there is no right or wrong answer. If she wished to pursue consideration of surgery, she wouldneed to have more recent imaging. She felt her quality of life was severely impaired enough, if surgery was a possibility even at only a 50% chance of improvement, she would like to pursue that. Based o n that we will proceed with the following plan. P: 1. Lumbar MRI with Gadolinium to rule out L5-S1 foraminal stenosis. 2. Phone follow-up to discuss results of that study and options. Signed by Kj Child MD 11/04/2006 19:27 Pramod Child, MDRdiana Child MD Kj Child MD - Kj Child MD P - cmg Job ID: [id number] Document ID: [id number] cc: MARGARITA Chaudhari MD documented in this encounter Plan of Treatment Upcoming Encounters Date Type Specialty Care Team Description 06/25/2022 Telemedicine Neurology Kj Gloria MD PhD [address] [facility] [address] [place], [place] [address] (Wo rk) 09/06/2022 Procedure visit Pain Medicine Catalino Garrett M D [address] [place] [address] [address] [place] [address] (Wo rk) 09/21/2022 Office Visit Bariatrics Allen Thompson, PAVladimir [address] [facility], [address] [place], [place] [address] (Wo rk) documented as of this encounter Visit Diagnoses Not on filedocumented in this encounter
--- NOTE | 2022-06-15 08:15 | DI.RAD_ITS ---
Exam(s) XR FOOT RT COMPLETE EXAM: XR FOOT RT COMPLETE CLINICAL HISTORY: pain 5th MT since yesterday. TECHNIQUE: 2D digital imaging was performed of the right foot. Three images were obtained. AP, obl ique and lateral views were obtained. COMPARISON: CR RIGHT FOOT COMPLETE from 05/15/2011 FINDINGS: BONES: No acute fracture is present. No bony destructive lesion is seen. There is a small plantar reema caneal spur. There is an enthesophyte at the Achilles insertion site. JOINTS: No dislocation present. SOFT TISSUE: Normal. IMPRESSION: No acute fracture or dislocation. DATA REPOSITORY: RADIATION DOSE DELIVERED:
--- NOTE | 2022-06-15 08:23 | ED.GENADUL_ITS ---
Discharge Plan Disposition Patient Disposition: HOME Condition: Stable Discharge Details Clinical Impression: Acute pain of right foot Primary Care Provider: Curtis Burns ED Provider: Raymundo Lorenzo Home Meds and New Rx's Prescriptions: Continued cholecalciferol (vitamin D3) 50 mcg (2,000 unit) capsule 50 mcg PO DAILY Qty: 90 3RF prochlorperazine 25 mg suppository 25 mg OR Q12H PRN (Reason: nausea and vomiting) Qty: 12 3RF Aimovig Autoinjector 70 mg/mL auto-injector 140 mg subcut QMONTH albuterol sulfate [ProAir HFA] 90 mcg/actuation HFA aerosol inhaler 1 - 2 puff Inhalation Q4H PRN Qty: 1 6RF benzonatate 100 mg capsule 100 mg PO TID PRN (Reason: cough) Qty: 30 0RF buspirone 5 mg tablet 30 mg PO BID Multi Complete with Iron 1 EACH tablet 1 tab PO DAILY vitamin d 3,000 units PO DAILY duloxetine 30 mg capsule,delayed release(DR/EC) 30 mg PO DAILY Qty: 90 4RF Rx Instructions: Take with 60 mg cap duloxetine [Cymbalta] 60 mg capsule,delayed release(DR/EC) 60 mg PO DAILY Qty: 90 4RF methylphenidate HCl 20 mg tablet 20 mg PO BID MDD 40 mg Qty: 56 0RF Rx Instructions: Take with 10 mg tab methylphenidate HCl 10 mg tablet 10 mg PO BID MDD 20 mg Qty: 56 0RF Rx Instructions: Take with 20 mg for total dose of 30 mg omeprazole magnesium [Prilosec OTC] 20 mg tablet,delayed release (DR/EC) 20 mg PO DAILY PRN (Reason: heartburn) Qty: 90 3RF pregabalin [Lyrica] 100 mg capsule 100 mg PO TID Qty: 42 0RF acetaminophen 500 mg Tablet 1,000 mg PO Q6H PRN clonidine HCl 0.1 mg tablet 0.1 mg PO BID Label Comments: TAKE 1 TABLET BY MOUTH TWICE DAILY Discharge Instructions Additional Instructions: Please use orthopedic shoe as a splint and use crutches. No weightbearing for the next 2 days. You may then start to bear light weight on your right foot and progress as tolerated. Rest over the next 2 days. If pain persists, please follow-up with your global chief experience officer next week. Return to the emergency department immediately for any worsening or new concerning symptoms. Stand Alone Forms: Work Release Referrals: Curtis Burns MD [Primary Care Provider] - Medical Decision Making 838 -- 47yo f here with rt 5th MT pain since yesterday with no known trauma or inflammation. Patient took NSAIDs prior to arrival. Will apply voltaren gel. Will obtain xray to assess for fracture. 1015 --x-ray of the foot was reviewed and interpreted by radiology: No fracture or bony lesion. Suspect foot sprain. Plan for crutches and orthopedic shoe with nonweightbearing over the next 2 days. Patient was advised to call her global chief experience officer should pain persist next week. HPI General Mode of arrival: ambulatory . Date/Time Provider Initiated Documentation: 06/15/22 08:21 . Limitations to Documentation: no limitations . Information obtained by: patient . HPI Narrative: 47-year-old female presents with chief complaint of right foot pain. Patient notes pain in her right lateral foot started yesterday. She does not recall any specific trauma. Pain is moderate to severe and worse when she bears weight and when she removes weight from her foot. Pain improved at rest lying on the stretcher. She has no associated swelling or inflammation. Pain is described as sharp. Patient does note intermittent orthopedic and foot pain similar in the past. Related Data Home Medications Medication Instructions Recorded Confirmed multivitamin-ferrous 1 tab PO DAILY 06/09/15 06/15/22 fumarate-folic acid 18 mg-400 mcg tablet (Multi Complete with Iron) Vitamin D 3,000 units PO DAILY 10/15/17 01/30/22 cholecalciferol (vitamin D3) 50 50 mcg PO DAILY #90 caps 06/03/20 06/15/22 mcg (2,000 unit) capsule prochlorperazine 25 mg rectal 25 mg OR Q12H PRN nausea and 06/03/20 06/15/22 suppository vomiting #12 ea duloxetine 30 mg capsule,delayed 30 mg PO DAILY #90 caps 08/02/20 06/15/22 release duloxetine 60 mg capsule,delayed 60 mg PO DAILY #90 tabs 10/07/20 06/15/22 release (Cymbalta) methylphenidate HCl 10 mg tablet 10 mg PO BID #56 tabs 11/18/20 06/15/22 methylphenidate HCl 20 mg tablet 20 mg PO BID #56 tabs 11/18/20 06/15/22 buspirone 5 mg tablet 30 mg PO BID 01/10/21 06/15/22 clonidine HCl 0.1 mg tablet 0.1 mg PO BID 03/11/21 06/15/22 erenumab-aooe 70 mg/mL 140 mg subcut QMONTH 04/21/21 06/15/22 subcutaneous auto-injector (Aimovig Autoinjector) albuterol sulfate 90 mcg/actuation 1 - 2 puff inhalation Q4H PRN ##1 08/15/21 06/15/22 aerosol inhaler (ProAir HFA) benzonatate 100 mg capsule 100 mg PO TID PRN cough #30 caps 08/15/21 06/15/22 omeprazole magnesium 20 mg 20 mg PO DAILY PRN heartburn #90 09/20/21 06/15/22 tablet,delayed release (Prilosec tabs OTC) acetaminophen 500 mg tablet 1,000 mg PO Q6H PRN 11/06/21 06/15/22 pregabalin 100 mg capsule (Lyrica) 100 mg PO TID #42 tab-caps 12/05/21 06/15/22 Previous Rx's Medication Instructions Recorded cholecalciferol (vitamin D3) 50 50 mcg PO DAILY #90 caps 06/03/20 mcg (2,000 unit) capsule prochlorperazine 25 mg rectal 25 mg OR Q12H PRN nausea and 06/03/20 suppository vomiting #12 ea duloxetine 30 mg capsule,delayed 30 mg PO DAILY #90 caps 08/02/20 release duloxetine 60 mg capsule,delayed 60 mg PO DAILY #90 tabs 10/07/20 release (Cymbalta) methylphenidate HCl 10 mg tablet 10 mg PO BID #56 tabs 11/18/20 methylphenidate HCl 20 mg tablet 20 mg PO BID #56 tabs 11/18/20 albuterol sulfate 90 mcg/actuation 1 - 2 puff inhalation Q4H PRN ##1 08/15/21 aerosol inhaler (ProAir HFA) benzonatate 100 mg capsule 100 mg PO TID PRN cough #30 caps 08/15/21 omeprazole magnesium 20 mg 20 mg PO DAILY PRN heartburn #90 09/20/21 tablet,delayed release (Prilosec tabs OTC) pregabalin 100 mg capsule (Lyrica) 100 mg PO TID #42 tab-caps 12/05/21 Allergies Allergy/AdvReac Type Severity Reaction Status Date / Time adhesive tape Allergy Intermediate Raw Skin Verified 01/30/22 12:55 bee pollen [Bee Pollen] Allergy Intermediate Large Verified 01/30/22 12:55 local reaction codeine [Codeine] AdvReac Intermediate NAUSEA/VOMI Verified 01/30/22 12:55 TING General Stated Complaint: Orthopedic CUAUHTEMOC: 4 Review of Systems Constitutional Constitutional: Denies fever(s) Musculoskeletal Musculoskeletal: Reports as per HPI PFSH All Active Problems (Updated 06/15/22 @ 10:15 by Raymundo Lorenzo MD) Acute pain of right foot (Acute) Dyspareunia (Acute) Flank pain (Acute) Anxiety (Chronic) Attention deficit hyperactivity disorder (ADHD), 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) Bilateral sacroiliitis (Chronic 07/10/16) Bipolar disorder (Chronic) Chronic right shoulder pain (Chronic 04/03/18) Degeneration of cervical intervertebral disc (Chronic 09/18/12) Elsy otho for injections Depressive disorder (Chronic) Dyspareunia (Chronic 02/01/17) Gastroesophageal reflux disease (Chronic) Hypersomnia (Chronic 07/10/16) Low back pain (Chronic) spinal fusion L-S; nerve stimulator implanted Migraine (Chronic) Osteoarthritis of right knee (Chronic 01/06/15) Smoker (Chronic 07/11/17) vaping Urinary incontinence, mixed (Chronic 08/11/15) Vasomotor symptoms due to menopause (Acute) 09/2019. Laparoscopic bilateral salpingectomy for treatment of pelvic pain. VMS after surgery present but tolerable Chronic pain (Chronic) Pain clinic [facility]- SI & Cervical steroid injections Pain, joint, knee, right (Acute) 01/20- being seen at [facility] pain clinic- synvisc Medical History Cellulitis of leg right lower extremity cellulitis Cellulitis of leg Cervicalgia Cervicalgia Cholelithiasis without obstruction S/P cholecystectomy Chronic pelvic pain in female Pelvic CT. Normal pelvic and abdominal ultrasound. 10/2017 Depo-Lupron 11.25 mg IM Depression Multifactorial. Currently dealing with achieving custody of her granddaughter from her daughter. GERD (gastroesophageal reflux disease) Hand pain, right 07/2020- seeing OT History of tobacco use Idiopathic peripheral neuropathy Kidney stone Lower abdominal pain (10/22/17) Rx with DepoLupron 11.25mg x1 10/22/17. Lumbar radiculopathy, acute Menorrhagia (05/06/14) Obesity Status post bariatric surgery Os trigonum syndrome Posttraumatic stress disorder Right cervical radiculopathy (04/03/16) better since spinal fusion Spinal stenosis (05/12/15) Substance abuse Pt. states she has been clean for over 22 years Tarsal tunnel syndrome Tarsal tunnel syndrome S/P RIGHT 11/13/11 ([facility]ANNED) operated on right foot- stable Tobacco use Surgical History Cholecystectomy (~1997) [facility] History of bilateral ligation of fallopian tubes History of bilateral salpingo-oophorectomy 09/09/2021 treat chronic pelvic pain. Patient had been pretreated for approximately 2 years with Depo. Lupron History of gynecological procedure History of spinal fusion >5 years Hysterectomy, Laproscopic (~10/2016) Ovaries conserved. Postop vaginal cuff hematoma managed expectantly. EP Ligation of fallopian tube sleeve gastrectomy (~2015) [facility] Spinal Fusion (~2006) nerve stimulator implanted Status post cholecystectomy Social History Smoking/Tobacco Use Status: Current every day Tobacco Type: e-cigarettes Quit status: not considering quitting Second Hand Exposure: Yes Smoking risk assessment performed?: Yes Alcohol Intake: current Alcohol Intake frequency: holidays/special occasions only Alcohol type: hard liquor Details: OCCASIONAL Drug use: Current Sobriety Substance use type: does not use Details: Marijuana for pain mgmt. Last used 6 months ago Caregiver/Support person: No Household members: spouse, family and children Housing: house Number of Children: 3 number of grandchildren: 3 Pets and animals: Yes Pets and animals: cat(s) and dog(s) Sexually active: Yes Do you think of yourself as: straight/heterosexual Current gender identity: female Other: 09/01/20 Favio Rooney What is your relationship status?: How often do you talk on the phone with friends or family?: three or more times per week How often do you get together with friends or relatives?: twice per week Do you belong to any clubs or organized social groups?: no Panel score (0-1 are the most socially isolated patients): 2 What type of physical activity do you participate in: walking Cindy/Judaism: None Special cindy needs: No Seatbelt use: always Helmet use: No Drive intox or ride w/intox services delivery driver: No Do you feel safe at home: Yes (Spouse in room) Do you feel safe in your relationship?: Yes Female Reproductive History Menstrual Menopause type: surgical History History 3 Para Hx # Term Pregnancies 3 Multiple births Hx # Pregnancies Ectopic pregnancies AB induced Hx Number of Living Children AB spontaneous Exam Const General: cooperative and no acute distress Cardio Rate: regular rate and not tachycardic Rhythm: regular rhythm Skin General skin exam: no rashes or lesions noted Neuro General: patient alert, patient awake and tone normal Extrem General: no edema Right lower extremity: foot (rt 5th MT ttp mid tarsal, no inflammation ) Details: toes with normal ROM and vascular exam Details: dorsalis pedis pulse present (2+) Other: No midfoot tenderness. Pain and tenderness localized to lateral mid fifth metatarsal. No surrounding inflammatory changes. Course Vital Signs Vital signs: Vital Signs Temperature 36.9 C 06/15/22 07:50 Pulse 90 06/15/22 07:50 Respiratory Rate 18 06/15/22 07:50 Blood Pressure 122/60 06/15/22 07:50 Pulse Oximetry 99 06/15/22 07:50 Temperature 36.9 C 06/15/22 07:50 Temperature Source Temporal Artery Scan 06/15/22 07:50 Pulse 90 06/15/22 07:50 Respiratory Rate 18 06/15/22 07:50 Respiratory Effort Non-Labored 06/15/22 08:11 Blood Pressure 122/60 06/15/22 07:50 Pulse Oximetry 99 06/15/22 07:50 Oxygen Delivery Method Room Air 06/15/22 07:50 Oxygen Flow Rate 0 06/15/22 07:50
[2022-06-15] MEDS: Diclofenac 1% Gel 100 GM TUBE TP (08:53)
== END 2022-06-15 10:41 | disposition home or self-care (01) ==
PROVIDERS: Emergency Provider Student in an Organized Health Care Education/Training Program; PCP Family Medicine
DX: M79.671 Pain in right foot (principal); F17.290 Nicotine dependence, other tobacco product, uncomplicated
CPT/HCPCS: 99283; 73630; 99282

== ENCOUNTER 2022-10-05 09:04 | Emergency (ER) | payer OTHER, SELFPAY ==
[2022-10-05 09:09] VITALS: BP 127/67; PULSE 72; RESP 18; TEMP 36.8; O2SAT 99
--- NOTE | 2022-10-05 09:25 | W.ED.GENAD ---
Discharge Plan Disposition Patient Disposition: Home Discharge Details Clinical Impression: Abdominal pain Primary Care Provider: Curtis Burns ED Provider: Xander Suárez Home Meds and New Rx's Prescriptions: No Action cholecalciferol (vitamin D3) 50 mcg (2,000 unit) capsule 50 mcg PO DAILY Qty: 90 3RF prochlorperazine 25 mg suppository 25 mg UT Q12H PRN (Reason: nausea and vomiting) Qty: 12 3RF Aimovig Autoinjector 70 mg/mL auto-injector 140 mg subcut QMONTH albuterol sulfate [ProAir HFA] 90 mcg/actuation HFA aerosol inhaler 1 - 2 puff Inhalation Q4H PRN Qty: 1 6RF benzonatate 100 mg capsule 100 mg PO TID PRN (Reason: cough) Qty: 30 0RF Multi Complete with Iron 1 EACH tablet 1 tab PO DAILY duloxetine 30 mg capsule,delayed release(DR/EC) 30 mg PO DAILY Qty: 90 4RF Rx Instructions: Take with 60 mg cap duloxetine [Cymbalta] 60 mg capsule,delayed release(DR/EC) 60 mg PO DAILY Qty: 90 4RF methylphenidate HCl 20 mg tablet 20 mg PO BID MDD 40 mg Qty: 56 0RF Rx Instructions: Take with 10 mg tab methylphenidate HCl 10 mg tablet 10 mg PO BID MDD 20 mg Qty: 56 0RF Rx Instructions: Take with 20 mg for total dose of 30 mg pregabalin [Lyrica] 100 mg capsule 100 mg PO TID Qty: 42 0RF acetaminophen 500 mg Tablet 1,000 mg PO Q6H PRN clonidine HCl 0.1 mg tablet 0.1 mg PO BID Label Comments: TAKE 1 TABLET BY MOUTH TWICE DAILY sumatriptan succinate 6 mg/0.5 mL cartridge 1 syrg SUBCUT DAILY PRN omeprazole 40 mg Capsule,Delayed Release(Dr/Ec) 40 mg PO DAILY PRN buspirone 30 mg Tablet 30 mg PO BID naproxen sodium [Aleve] 220 mg Capsule 440 mg PO TID Discharge Instructions Instructions: Abdominal Pain (ED) Additional Instructions: The exact source of abdominal pain was not discovered. You had multiple studies done that did not reveal any intra-abdominal abnormalities. No urinary tract infection. New labs are all within normal limits. Please follow-up with your primary care doctor on Saturday. Please take the pain medication as instructed. Medical Decision Making Patient presenting symptomatology was consistent with a recurrent kidney stone. However CT scan of the abdomen pelvis did not reveal any kidney stone. Moreover the patient continued to have right-sided abdominal/flank pain and persistent nausea vomiting. She required more narcotics to control the pain. CBC did not reveal any leukocytosis her urine with normal She is status post a cholecystectomy, appendectomy, bilateral ovarian resection and hysterectomy. She also has a stomach bypass surgery. I will repeat a CAT scan with IV and p.o. contrast to try to determine if there is any other pathology I was missed on the Noncon CT scan. 3:20 PM. Case discussed with radiologist. CT scan appears normal except for dilatation of the CBD at 1.8. The patient's LFTs are normal bilirubins are normal. No explanation patient's abdominal pain at this point. HPI General Date/Time Provider Initiated Documentation: 10/05/22 09:07. HPI Narrative: 47-year-old presents for evaluation of right-sided flank pain. States the pain started proximately 2 days ago. He has had 2 episodes of emesis in the evenings associate with the pain. This morning she woke up with worsening pain. No radiation of pain. Associate with nausea vomiting. She cannot find a comfortable position. No hematuria but states her urine is very concentrated. States that this is similar to kidney stone she had a couple years ago. No fevers no chills Related Data Home Medications Medication Instructions Recorded Confirmed multivitamin-ferrous 1 tab PO DAILY 06/09/15 10/05/22 fumarate-folic acid 18 mg-400 mcg tablet (Multi Complete with Iron) cholecalciferol (vitamin D3) 50 50 mcg PO DAILY #90 caps 06/03/20 10/05/22 mcg (2,000 unit) capsule prochlorperazine 25 mg rectal 25 mg UT Q12H PRN nausea and 06/03/20 10/05/22 suppository vomiting #12 ea duloxetine 30 mg capsule,delayed 30 mg PO DAILY #90 caps 08/02/20 10/05/22 release duloxetine 60 mg capsule,delayed 60 mg PO DAILY #90 tabs 10/07/20 10/05/22 release (Cymbalta) methylphenidate HCl 10 mg tablet 10 mg PO BID #56 tabs 11/18/20 10/05/22 methylphenidate HCl 20 mg tablet 20 mg PO BID #56 tabs 11/18/20 10/05/22 clonidine HCl 0.1 mg tablet 0.1 mg PO BID 03/11/21 10/05/22 erenumab-aooe 70 mg/mL 140 mg subcut QMONTH 04/21/21 10/05/22 subcutaneous auto-injector (Aimovig Autoinjector) albuterol sulfate 90 mcg/actuation 1 - 2 puff inhalation Q4H PRN ##1 08/15/21 10/05/22 aerosol inhaler (ProAir HFA) benzonatate 100 mg capsule 100 mg PO TID PRN cough #30 caps 08/15/21 10/05/22 acetaminophen 500 mg tablet 1,000 mg PO Q6H PRN 11/06/21 10/05/22 pregabalin 100 mg capsule (Lyrica) 100 mg PO TID #42 tab-caps 12/05/21 10/05/22 buspirone 30 mg tablet 30 mg PO BID 10/05/22 10/05/22 naproxen sodium 220 mg capsule 440 mg PO TID 10/05/22 10/05/22 (Aleve) omeprazole 40 mg capsule,delayed 40 mg PO DAILY PRN 10/05/22 10/05/22 release sumatriptan succinate 6 mg/0.5 mL 1 syrg subcut DAILY PRN 10/05/22 10/05/22 subcutaneous cartridge (refill) Previous Rx's Medication Instructions Recorded cholecalciferol (vitamin D3) 50 50 mcg PO DAILY #90 caps 06/03/20 mcg (2,000 unit) capsule prochlorperazine 25 mg rectal 25 mg UT Q12H PRN nausea and 06/03/20 suppository vomiting #12 ea duloxetine 30 mg capsule,delayed 30 mg PO DAILY #90 caps 08/02/20 release duloxetine 60 mg capsule,delayed 60 mg PO DAILY #90 tabs 10/07/20 release (Cymbalta) methylphenidate HCl 10 mg tablet 10 mg PO BID #56 tabs 11/18/20 methylphenidate HCl 20 mg tablet 20 mg PO BID #56 tabs 11/18/20 albuterol sulfate 90 mcg/actuation 1 - 2 puff inhalation Q4H PRN ##1 08/15/21 aerosol inhaler (ProAir HFA) benzonatate 100 mg capsule 100 mg PO TID PRN cough #30 caps 08/15/21 pregabalin 100 mg capsule (Lyrica) 100 mg PO TID #42 tab-caps 12/05/21 Allergies Allergy/AdvReac Type Severity Reaction Status Date / Time adhesive tape Allergy Intermediate Raw Skin Verified 10/05/22 11:38 bee pollen [Bee Pollen] Allergy Intermediate Large Verified 10/05/22 11:38 local reaction codeine [Codeine] AdvReac Intermediate NAUSEA/VOMI Verified 10/05/22 11:38 TING General Stated Complaint: FlankPain CUAUHTEMOC: 3 Review of Systems Narrative: 10 review of systems are negative unless otherwise specified in the HPI. 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) Bilateral sacroiliitis (Chronic 07/10/16) Bipolar disorder (Chronic) Chronic right shoulder pain (Chronic 04/03/18) Degeneration of cervical intervertebral disc (Chronic 09/18/12) Elsy iqbal for injections Depressive disorder (Chronic) Dyspareunia (Chronic 02/01/17) Gastroesophageal reflux disease (Chronic) Hypersomnia (Chronic 07/10/16) Low back pain (Chronic) spinal fusion L-S; nerve stimulator implanted Migraine (Chronic) Osteoarthritis of right knee (Chronic 01/06/15) Smoker (Chronic 07/11/17) vaping Urinary incontinence, mixed (Chronic 08/11/15) Vasomotor symptoms due to menopause (Acute) 09/2019. Laparoscopic bilateral salpingectomy for treatment of pelvic pain. VMS after surgery present but tolerable Chronic pain (Chronic) Pain clinic [facility]- SI & Cervical steroid injections Pain, joint, knee, right (Acute) 01/20- being seen at [facility] pain clinic- synvisc Medical History Cellulitis of leg right lower extremity cellulitis Cellulitis of leg Cervicalgia Cervicalgia Cholelithiasis without obstruction S/P cholecystectomy Chronic pelvic pain in female Pelvic CT. Normal pelvic and abdominal ultrasound. 10/2017 Depo-Lupron 11.25 mg IM Depression Multifactorial. Currently dealing with achieving custody of her granddaughter from her daughter. GERD (gastroesophageal reflux disease) Hand pain, right 07/2020- seeing OT History of tobacco use Idiopathic peripheral neuropathy Kidney stone Lower abdominal pain (10/22/17) Rx with DepoLupron 11.25mg x1 10/22/17. Lumbar radiculopathy, acute Menorrhagia (05/06/14) Obesity Status post bariatric surgery Os trigonum syndrome Posttraumatic stress disorder Right cervical radiculopathy (04/03/16) better since spinal fusion Spinal stenosis (05/12/15) Substance abuse Pt. states she has been clean for over 22 years Tarsal tunnel syndrome Tarsal tunnel syndrome S/P RIGHT 11/13/11 ([facility]) operated on right foot- stable Tobacco use Surgical History Cholecystectomy (~1997) Endometrial Biopsy 05/10/14;[facility] History of bilateral ligation of fallopian tubes History of bilateral salpingo-oophorectomy 09/09/2021 treat chronic pelvic pain. Patient had been pretreated for approximately 2 years with Depo. Lupron History of gynecological procedure History of spinal fusion >5 years Hysterectomy, Laproscopic (~10/2016) Ovaries conserved. Postop vaginal cuff hematoma managed expectantly. EP Ligation of fallopian tube sleeve gastrectomy (~2015) [facility] Spinal Fusion (~2006) nerve stimulator implanted Status post cholecystectomy Social History Smoking/Tobacco Use Status: Current every day Tobacco Type: e-cigarettes Quit status: not considering quitting Second Hand Exposure: Yes Smoking risk assessment performed?: Yes Alcohol Intake: current Alcohol Intake frequency: holidays/special occasions only Alcohol type: hard liquor Details: OCCASIONAL Drug use: Current Sobriety Substance use type: does not use Details: Marijuana for pain mgmt Caregiver/Support person: No Household members: spouse, family and children Housing: house Number of Children: 3 number of grandchildren: 3 Pets and animals: Yes Pets and animals: cat(s) and dog(s) Sexually active: Yes Do you think of yourself as: straight/heterosexual Current gender identity: female Other: 09/01/20 Favio Rooney What is your relationship status?: How often do you talk on the phone with friends or family?: three or more times per week How often do you get together with friends or relatives?: twice per week Do you belong to any clubs or organized social groups?: no Panel score (0-1 are the most socially isolated patients): 2 What type of physical activity do you participate in: walking Cindy/Mu-Ism: None Special cindy needs: No Seatbelt use: always Helmet use: No Drive intox or ride w/intox 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 Psych positive anxiety Course Vital Signs Vital signs: Vital Signs Temperature 36.8 C 10/05/22 09:09 Pulse 72 10/05/22 09:09 Respiratory Rate 18 10/05/22 09:09 Blood Pressure 127/67 10/05/22 09:09 Pulse Oximetry 99 10/05/22 09:09 Temperature 36.8 C 10/05/22 09:09 Temperature Source Oral 10/05/22 09:09 Pulse 72 10/05/22 09:09 Respiratory Rate 18 10/05/22 09:09 Blood Pressure 127/67 10/05/22 09:09 Blood Pressure Position Sitting 10/05/22 09:09 Pulse Oximetry 99 10/05/22 09:09 Oxygen Delivery Method Room Air 10/05/22 09:09 Oxygen Flow Rate 0 10/05/22 09:09 Pain Level 10 10/05/22 09:22 Comment 10/05/22 09:09
[2022-10-05 09:30] LABS: Bilirubin Negative (Negative); Blood Negative (Negative); Clarity Clear (Clear); Glucose Negative (Negative); Ketones Negative (Negative); Leukocyte Esterase Negative (Negative); Nitrite Negative (Negative); Specific Gravity >= 1.030 (1.005-1.025); Urobilinogen 0.2 EU/dL (Up TO 0.2)
[2022-10-05] MEDS: Normal Saline 1,000 ML 1000 ML IV (09:30)
[2022-10-05] MEDS: Ondansetron 4 MG/2 ML VIAL IVP (09:37)
[2022-10-05] MEDS: Ketorolac 30 MG/ML VIAL IVP (09:40)
[2022-10-05 09:49] LABS: Abs Immature Grans 0.03 10^3/uL (0.0-0.06); Absolute Basophil Count 0.08 10^3/uL (0.0-0.2); Absolute Eosinophil Count 0.36 10^3/uL (0.0-0.7); Absolute Monocyte Count 0.51 10^3/uL (0.1-0.8); Absolute Neutrophil Count 6.38 10^3/uL (1.2-6.7); Basophils % 0.9; Eosinophils % 4.3; HCT 41.9 % (36.0-46.0); HGB 13.9 g/dL (11.2-15.7); Immature Grans % 0.4; MCHC 33.2 % (32.0-36.0); MCV 91 fL (80-95); MPV 9.9 fL (8.0-11.0); Neutrophils % 75.4; Platelet Count 294 10^3/uL (130-400); RBC 4.63 10^6/uL (3.93-5.22); RDW 13.2 % (11.7-14.6); RDW-SD 43.6 fL; WBC 8.46 10^3/uL (4.4-10.8)
--- NOTE | 2022-10-05 09:51 | DI.CT_ITS ---
Exam(s) CT RENAL COLIC WO EXAM: CT RENAL COLIC WO CLINICAL HISTORY: Right-sided flank pain. TECHNIQUE: Imaging Protocol: Axial computed tomography images with coronal and sagittal reformatted images were created and reviewed CONTRAST MATERIAL: Intravenous: none Oral: None COMPARISON: CT ABD PELVIS WITH CONTRAST from 08/07/[address] RENAL COLIC WO from 10/31/2021 FINDINGS: VISUALIZED LUNG BASES: There is a 6 millimeter noncalcified nodule in the anterior basal segment of t he left lower lobe which is unchanged from the prior CT scan of 10/31/2021 as well as prior CT scan o August 2017 and therefore benign. No other nodule seen in the lung bases and no pleural effusion s.. ABDOMEN: There is no ascites. There is evidence of prior bariatric surgery which appears to be gastric sleeve-type. There is no ab normal streaking nor fluid collection around the stomach. No evidence of bowel obstruction, free air , nor abscess. The patency of the superior mesenteric vein cannot be assessed without IV contrast. LIVER: There are no obvious focal hepatic lesions evident of this noninfused study. GALLBLADDER/BILIARY: Gallbladder is again noted to be surgically absent. CBD diameter is increased, probably consistent with post cholecystectomy status. There are no radiopaque calculi seen in the lo wer CBD. There is no obvious mass in the pancreatic head evident on this noninfused study. PANCREAS: No evidence of pancreatic mass nor dilatation of the pancreatic duct. SPLEEN: There are subcapsular cysts or hemangiomas again noted in the inferior aspect of the spleen, unchanged from 10/31/2021 but increased in size from 2017. These are difficult to assess without IV contrast. ADRENALS: There are no significant adrenal masses. KIDNEYS:There are no radiopaque intrarenal calculi evident on the right side. There is a punctate no nobstructive calculus in left kidney. Slight prominence of the renal pelves again noted but no radio paque calculi within the ureters. There are no radiopaque calculi at the ureterovesical junctions no r in the urinary bladder which is not distended. No cyst or solid renal masses evident... ABDOMINAL AORTA: Abdominal aorta is not enlarged. LYMPH NODES: There is no retroperitoneal nor paraaortic adenopathy. ABDOMINAL WALL: There is a fat containing left inguinal hernia noted. This appears unchanged from 03 /09/2021. GI: There is no evidence of bowel obstruction, free air, nor abscess. Abundant fecal material noted throughout the colon, similar to previous. PELVIS: LYMPH NODES: There is no intrapelvic nor inguinal adenopathy. GI: No evidence of appendicitis.No evidence of sigmoid diverticulitis. URINARY BLADDER: No calculi nor obvious masses evident REPRODUCTIVE: Uterus is surgically absent. No abnormal adnexal masses nor free fluid in the pelvis. OSSEOUS: Fusion hardware and stimulator again noted lower lumbar spine. No fractures. IMPRESSION: 1. No radiopaque calculi in the urinary tracts on the present study. No hydronephrosis nor hydrouret er. The previously present obstructing calculus in the right upper ureter seen on the CT scan of 09/2021 is no longer seen. Also no calculi evident in the urinary bladder (which is not distended). 2. Gallbladder is again noted be surgically absent. Slight prominence of the CBD diameter is probabl y consistent with post cholecystectomy status. 3. Evidence of gastric bariatric surgery. No free air. No bowel obstruction although there is abund ant fecal material again noted throughout the colon. No appendicitis. No diverticulitis. 4. Prior hysterectomy. No abnormal adnexal findings nor free fluid in the pelvis. 5. There are 2 adjacent subcapsular cyst in the inferior aspect of the spleen which are unchanged fr om October 2002. Difficult to evaluate without IV contrast but probably either cysts or hemangiomas. Unchanged appearance of fat only containing left inguinal hernia. Stable 6 millimeter nodule right left lung base. RADIATION DOSE DELIVERED: 1,083.57mGy.cm Total DLP DATA REPOSITORY: All CT scans at this facility are submitted to the National Radiology Data Registry (NRDR) Dose Index Registry (DIR) with the [employer] (ACR). RADIATION OPTIMIZATION: All CT scans at this facility use at least one of these dose optimization te chniques: automated exposure control; mA and/or kV adjustment per patient size (includes targeted exa ms where dose is matched to clinical indication); or iterative reconstruction.
[2022-10-05] MEDS: MORPHine 10 MG/ML VIAL 5 MG IVP (09:55)
[2022-10-05 10:01] LABS: Anion Gap 6.8 mmol/L (3-11); BUN 12 mg/dL (7-18); CO2 30.2 mmol/L (21.0-32.0); CREATININE 0.7 mg/dL (0.55-1.02); Calcium 9.1 mg/dL (8.5-10.1); Chloride 106 mmol/L (98-107); Estimated GFR 105.95 (mL/min/1.73m2); Glucose 64 mg/dL (74-106); Potassium 3.8 mmol/L (3.5-5.1); Sodium 143 mmol/L (136-145)
[2022-10-05] MEDS: MORPHine 10 MG/ML VIAL 6 MG IVP (10:57)
[2022-10-05 11:04] LABS: Lactate 1.2 mmol/L (0.6-1.4)
[2022-10-05 11:18] LABS: C-Reactive Protein 1.48 mg/dL (0.0-0.3)
[2022-10-05 12:19] VITALS: BP 131/65; PULSE 78; RESP 19; TEMP 36.7; O2SAT 96
--- NOTE | 2022-10-05 12:26 | DI.CT_ITS ---
Exam(s) CT ABDOMEN PELVIS W EXAM: CT ABDOMEN PELVIS W CLINICAL HISTORY: rt sided abd pain. TECHNIQUE: Imaging Protocol: Axial computed tomography images with coronal and sagittal reformatted images were created and reviewed CONTRAST MATERIAL: Intravenous: Omnipaque-350 100cc Oral: None COMPARISON: CT CT RENAL COLIC WO from 10/05/2022 FINDINGS: VISUALIZED LUNG BASES: No nodules nor pleural effusions evident. ABDOMEN: There is no ascites. Again noted is evidence of prior bariatric surgery, cholecystectomy, and hyster ectomy. There is no evidence of obvious bowel obstruction, free air, nor abscess.. LIVER: There are no focal hepatic lesions evident. There are dilated intrahepatic ducts evident in b oth patent lobes. The CBD is also significantly dilated, measuring 1.8 cm without evidence of obviou s pancreatic head mass nor radiopaque calculus seen in the lower CBD. GALLBLADDER/BILIARY: Gallbladder is again noted be surgically absent. Dilated to 1.8 cm PANCREAS: Pancreatic duct is dilated, measuring 4-5 millimeters throughout the length of the gland. No obvious hypodense nor cystic mass in the pancreatic head. No pancreatic calcifications.. SPLEEN: Spleen size is normal. In the inferior aspect of the spleen there are 2 adjacent subcapsular cysts, the larger of the 2 measuring 1.4 by 1.1 cm and the smaller measuring 1.4 x1.2 cm . the splen ic and portal veins are patent. Superior mesenteric vein is patent. ADRENALS: There are no significant adrenal masses. KIDNEYS:No hydronephrosis. Bilateral extrarenal pelves no solid renal masses. No calculi nor hydrone phrosis.. ABDOMINAL AORTA: Abdominal aorta exhibits normal size. Incidentally noted is a retroaortic left evelio l vein which is seen approximately 5 percent of the general population. LYMPH NODES:There is no retroperitoneal nor paraaortic adenopathy. ABDOMINAL WALL: Left inguinal hernia which contains fat is again noted, unchanged. GI: There is no evidence of bowel obstruction, free air, nor abscess. PELVIS: GI: No evidence of appendicitis.No evidence of sigmoid diverticulitis. LYMPH NODES: There is no intrapelvic nor inguinal adenopathy. REPRODUCTIVE: Uterus surgically absent. No abnormal adnexal masses. No free fluid in the pelvis. URINARY BLADDER: No calculi nor obvious masses evident OSSEOUS: Fusion hardware and stimulator noted in the lower lumbar spine L4-L5. No fractures. No lyt ic osseous lesions. IMPRESSION: 1. Again noted is evidence of previous bariatric surgery, hysterectomy and cholecystectomy. 2. There is dilatation of the biliary tree, both intra and extrahepatic as well as a dilatation of th e pancreatic duct. The CBD is significantly dilated to diameter 1.8 cm. There is no radiopaque calc ulus seen in the lower CBD nor mass in the pancreatic head. Correlation with blood work recommended to determine if ERCP is required 3. Two adjacent subcapsular cyst in the inferior aspect of the spleen are noted. These measure 1.4 a nd 1.2 cm. Spleen size itself is normal. 4. Fat only containing left inguinal hernias again noted, unchanged from prior studies. This hernia does not contain bowel loops. 5. There is no ascites. Report called by myself to ER provider. RADIATION DOSE DELIVERED: 1,708.56mGy.cm Total DLP DATA REPOSITORY: All CT scans at this facility are submitted to the National Radiology Data Registry (NRDR) Dose Index Registry (DIR) with the [employer] (ACR). RADIATION OPTIMIZATION: All CT scans at this facility use at least one of these dose optimization te chniques: automated exposure control; mA and/or kV adjustment per patient size (includes targeted exa ms where dose is matched to clinical indication); or iterative reconstruction.
[2022-10-05 13:31] LABS: ALT 22 U/L (14-59); AST 25 U/L (15-37); Albumin 3.7 g/dL (3.4-5.0); Alkaline Phosphatase 85 U/L (46-116); Bilirubin, Direct 0.2 mg/dL (0.0-0.2); Bilirubin, Total 0.5 mg/dL (0.2-1.0); Total Protein 7.1 g/dL (6.4-8.2)
[2022-10-05] MEDS: Omnipaque 350 MG/ML 100 ML BTL IJ (14:21)
[2022-10-05] MEDS: Normal Saline - Diluent 50 ML VIAL IV (14:22)
[2022-10-05] MEDS: Normal Saline Flush 10 ML SYR IVP (14:23)
[2022-10-05] MEDS: Breeza Beverage 473 ML BTL 900 ML PO (14:24)
[2022-10-05] MEDS: Omnipaque 350 MG/ML 50 ML BTL PO (14:26)
[2022-10-05 14:46] VITALS: BP 127/91; PULSE 75; RESP 19; TEMP 36.8; O2SAT 93
[2022-10-05] MEDS: oxyCODONE 5 mg/Acetaminophen 325 mg TAB 1 TAB PO (15:45)
[2022-10-05 15:46] VITALS: PULSE 74; O2SAT 97
== END 2022-10-05 16:09 | disposition home or self-care (01) ==
PROVIDERS: Emergency Provider Emergency Medicine; PCP Family Medicine
DX: R10.9 Unspecified abdominal pain (principal); F90.9 Attention-deficit hyperactivity disorder, unspecified type; Z90.49 Acquired absence of other specified parts of digestive tract
CPT/HCPCS: 36415; 36416; 80048; 80076; 82962; 96361; 96372; 96374; 96375; 99285; 74176; 74177; 81003; 83605; 85025; 86140; 99284; J1885; J2270; J2405; J3490; Q9967

== ENCOUNTER 2022-10-09 16:17 | Outpatient (REF) | payer MEDICARE, SELFPAY ==
[2022-10-09 15:49] LABS: Iron 47 ug/dL (50-170); Total Iron Binding Capacity 321 ug/dL (250-450); Transferrin Sat 15 % (15-50)
[2022-10-09 15:59] LABS: Ferritin 41 ng/mL (8-252); Magnesium 2.1 mg/dL (1.8-2.4)
== END 2022-10-09 16:18 | disposition home or self-care (01) ==
LOC: NCHCN 16:17
PROVIDERS: PCP Family Medicine; Visit Provider Nurse Practitioner Family
DX: G47.62 Sleep related leg cramps (principal); M54.89 Other dorsalgia; E61.1 Iron deficiency
CPT/HCPCS: 82728; 83540; 83550; 83735

== ENCOUNTER 2022-11-07 02:11 | Outpatient (CLI) | payer MEDICARE, SELFPAY ==
--- NOTE | 2022-11-07 | DI.RAD_ITS ---
Exam(s) XR LUMBAR SPINE AP, LAT EXAM: XR LUMBAR SPINE AP, LAT CLINICAL HISTORY: SCREENING, Z13.9,RT BACK PAIN, M54.89. TECHNIQUE: 2D digital imaging was performed. Five views. COMPARISON: MR MRI - LUMBAR SPINE W/WO CONT from 02/09/2014 CR ABD FLAT UPRIGHT PA CHEST from 11/29/2016 CR RT HIP COMPLETE AP PELVIS from 04/26/[address] ABDOMEN PELVIS W from 10/05/2022 FINDINGS: A spinal stimulator device is noted positioned at the L5 S1 level. The leads appear intact. There i s posterior fusion hardware at the at this level as well. There is mild narrowing of the L3-4 disc s pace and mild spondylo listhesis. There is apparent spondylolysis at L3. The vessel mild narrowing of the L1-2 disc space. Right upper quadrant surgical clips. Suture material seen left mid abdomen. IMPRESSION: Postsurgical changes and degenerative changes. Spondylolysis L3 with mild spondylolisthesis L3-4. DATA REPOSITORY: RADIATION DOSE DELIVERED:
--- NOTE | 2022-11-07 10:45 | DI.MRI_ITS ---
Exam(s) MR LUMBAR SPINE WO EXAM: MR LUMBAR SPINE WO CLINICAL HISTORY: RT BACK PAIN, M54.89. TECHNIQUE: Multiplanar multisequence MRI of the Lumbar spine was performed. COMPARISON: MR MRI - LUMBAR SPINE W/WO CONT from 02/09/[address] ABDOMEN PELVIS W from 10/05/2022 CR XR LUMBAR SPINE AP, LAT from 11/07/2022 FINDINGS: Bones: The last intervertebral disc space is designated the L5/S1 level for the numbering purpose of this examination. The vertebral body heights are well maintained. Alignment is satisfactory. The ma rrow signal characteristics are unremarkable. Posterior fusion hardware again noted at L 5 S1. Pos terior spinal stimulator creates some artifact in the soft tissues. Cord: The conus tip ends at the T12 level. It is of normal size and signal intensity. T12-L1: No disc herniations or bulges are present. No central spinal canal or neural foraminal stenos is. L1-2: Moderate loss of height and mild concentric bulging, causing mild right neural foraminal narrow ing. Findings are new compared with prior. No central spinal canal or neural foraminal stenosis. L2-3: No disc herniations or bulges are present. No central spinal canal or neural foraminal stenosis . L3-4: Mild loss of height of the L3-4 disc with concentric bulging causing severe neural foraminal na rrowing on the right and moderate neural foraminal narrowing on the left. Facet degenerative changes also contribute to the neural foraminal narrowing. No significant central canal stenosis. Findings have progressed somewhat compared to prior. L4-5: No disc herniations or bulges are present. No central spinal canal or neural foraminal stenosis . L5-S1: Stable appearance of loss of disc height at level of fusion. No central spinal canal or neura l foraminal stenosis. The visualized SI joints and sacrum are well maintained. Soft tissues: The common bile duct is noted to be dilated as seen on prior CT. No common duct stone or mass is identified. The duct tapers into the head of the pancreas. This is likely secondary to r eservoir effect status post cholecystectomy. Splenic cysts noted. IMPRESSION: stable appearance of fusion hardware at L5-S1. Some interval worsening of degenerative disc changes and facet degenerative changes at L3-4 causing b ilateral neural foraminal narrowing, severe on the right.. Degenerative disc changes also seen at L1 -2. DATA REPOSITORY:
== END 2022-11-07 02:31 ==
PROVIDERS: PCP Family Medicine; Visit Provider Nurse Practitioner Family
DX: Z13.9 Encounter for screening, unspecified (principal); M47.816 Spondylosis without myelopathy or radiculopathy, lumbar region; M43.16 Spondylolisthesis, lumbar region; M48.061 Spinal stenosis, lumbar region without neurogenic claudication; Z98.1 Arthrodesis status
CPT/HCPCS: 72100; 72148

== ENCOUNTER 2023-05-03 02:55 | Outpatient (CLI) | payer MEDICARE, SELFPAY ==
[2023-05-03 16:16] LABS: Abs Immature Grans 0.02 10^3/uL (0.0-0.06); Absolute Basophil Count 0.06 10^3/uL (0.0-0.2); Absolute Eosinophil Count 0.07 10^3/uL (0.0-0.7); Absolute Lymphocyte Count 2.61 10^3/uL (1.2-3.4); Absolute Monocyte Count 0.55 10^3/uL (0.1-0.8); Absolute Neutrophil Count 4.39 10^3/uL (1.2-6.7); Basophils % 0.8; Eosinophils % 0.9; HCT 39.7 % (36.0-46.0); HGB 13.6 g/dL (11.2-15.7); Immature Grans % 0.3; Lymphocytes % 33.9; MCHC 34.3 % (32.0-36.0); MCV 88 fL (80-95); MPV 9.5 fL (8.0-11.0); Monocytes % 7.1; Platelet Count 310 10^3/uL (130-400); RBC 4.53 10^6/uL (3.93-5.22); RDW 13.2 % (11.7-14.6); RDW-SD 42.3 fL
[2023-05-03 17:24] LABS: ALT 21 U/L (14-59); AST 10 U/L (15-37); Albumin 3.5 g/dL (3.4-5.0); Alkaline Phosphatase 61 U/L (46-116); Anion Gap 10.9 mmol/L (3-11); BUN 19 mg/dL (7-18); Bilirubin, Total 0.4 mg/dL (0.2-1.0); CO2 26.1 mmol/L (21.0-32.0); CREATININE 0.9 mg/dL (0.55-1.02); Calcium 9.2 mg/dL (8.5-10.1); Calculated LDL 110 mg/dL (<100); Chloride 104 mmol/L (98-107); Cholesterol 235 mg/dL (<200); Estimated GFR 78.37 (mL/min/1.73m2); Ferritin 23 ng/mL (8-252); Glucose 122 mg/dL (74-106); HDL Cholesterol 106 mg/dL (40-60); Magnesium 1.9 mg/dL (1.8-2.4); Potassium 3.2 mmol/L (3.5-5.1); Sodium 141 mmol/L (136-145); TSH (W/Ref FT4) 1.21 uIU/mL (0.36-3.74); Total Protein 6.8 g/dL (6.4-8.2); Triglyceride 98 mg/dL (<150); Vitamin B12 454 pg/mL (193-986)
[2023-05-03 18:55] LABS: Iron 78 ug/dL (50-170); Total Iron Binding Capacity 351 ug/dL (250-450); Transferrin Sat 22 % (15-50)
[2023-05-03 19:30] LABS: Folate > 20.0 ng/mL (8.6-20.0)
== END 2023-05-03 02:56 | disposition home or self-care (01) ==
LOC: LBO 02:56
PROVIDERS: PCP Family Medicine; Visit Provider Nurse Practitioner Family
DX: Z00.00 Encounter for general adult medical examination without abnormal findings (principal); E61.1 Iron deficiency; G47.62 Sleep related leg cramps
CPT/HCPCS: 36415; 80053; 80061; 82607; 82728; 82746; 83036; 83540; 83550; 83735; 84443; 85025

== ENCOUNTER → 2023-05-20 03:17 | Outpatient (CLI) | payer MEDICARE, SELFPAY ==
--- NOTE | 2023-05-20 | DI.DEXA_ITS ---
Exam(s) XR DEXA BONE DENSITY W/WO JAIME EXAM: XR DEXA BONE DENSITY W/WO JAIME CLINICAL HISTORY: MENOPAUSAL STATE Z78.0 OBESITY E66.9 HX BARIATRIC SX Z98.84 TECHNIQUE: COMPARISON: No exams were available for comparison FINDINGS: Lateral Spine Image: Unremarkable. No compression deformities identified. Posterior spinal surgery i s seen at L5-S1. Left hip: Total T-Score: -0.5 Total Z-Score: 0.0 T- and Z-scores: Within normal limits. Lumbar Spine: Total T-Score: 1.1 Total Z-Score: 1.8 T- and Z-scores: Within normal limits. IMPRESSION: No evidence of osteoporosis.
--- NOTE | 2023-05-20 | DI.MAMMO_ITS ---
Exam(s) MAMMO SCREENING EXAM: MAMMO SCREENING CLINICAL HISTORY: SCREENING MAMMO Z12.31 FAM HX BREAST CANCER Z80.3 TECHNIQUE: Mammograms were interpreted according to the usual protocol including computer analysis w ith CAD system, tomosynthesis and C-view imaging. COMPARISON: 2013 through 2021 FINDINGS: The breasts are composed of scattered fibroglandular densities, Breast Density category B. No suspicious masses or suspicious microcalcifications are seen. No skin thickening or abnormal axillary lymph nodes are seen. There has been no significant change from prior exams. IMPRESSION: BI-RADS Category 1, Negative mammogram Yearly screening mammography is recommended. Breast Density - Category B, scattered fibroglandular densities. A negative radiographic report should not delay biopsy if a dominant or clinically suspicious mass is present. Up to ten percent of cancers are not identified on mammography. A negative report may reinforce clinical impression. Adenosis and dense breasts may obscure an underlying neoplasm. False positive reports average 6 to 10%. Patient will receive a letter notifying them of these results.
== END ==
PROVIDERS: PCP Family Medicine; Visit Provider Nurse Practitioner Family
DX: Z78.0 Asymptomatic menopausal state (principal); Z12.31 Encounter for screening mammogram for malignant neoplasm of breast; Z80.3 Family history of malignant neoplasm of breast; Z13.820 Encounter for screening for osteoporosis
CPT/HCPCS: 77063; 77067; 77080

== ENCOUNTER 2023-05-20 09:18 | Outpatient (CLI) | payer MEDICARE, SELFPAY ==
[2023-05-20 10:39] LABS: Anion Gap 8.3 mmol/L (3-11); BUN 20 mg/dL (7-18); CO2 27.7 mmol/L (21.0-32.0); CREATININE 0.9 mg/dL (0.55-1.02); Chloride 105 mmol/L (98-107); Estimated GFR 78.37 (mL/min/1.73m2); Glucose 101 mg/dL (74-106); Potassium 4.1 mmol/L (3.5-5.1); Sodium 141 mmol/L (136-145)
== END 2023-05-20 09:19 | disposition home or self-care (01) ==
LOC: LBO 09:19
PROVIDERS: PCP Family Medicine; Visit Provider Nurse Practitioner Family
DX: E87.6 Hypokalemia (principal)
CPT/HCPCS: 36415; 80048

== ENCOUNTER 2024-04-22 23:42 | Outpatient (REF) | payer MEDICARE, SELFPAY ==
--- OUTSIDE RECORDS SUMMARY | 2024-04-22 23:44 | XMS_ITS | Encounter Summary ---
Author Organization [facility] [place] [address] Care Team Providers Care Applique Cutter Name Role Phone Donna Mohr APRN Primary Care Provider [phone] Encounter Details Date Type Department Care Team (Late st Contact Info) Description 05/18/2014 Orders Only Radiology [facility] [place] [phone] Dariela Stiles MD [address] [place] [address] Social History Tobacco Use Types Packs/Day Years Used Date Smoking Tobacco: Former Sex and Gender Information Value Date Recorded Sex Assigned at Not on file Gender Identity Not on file Sexual Orientation Not on file documented as of this encounter Plan of Treatment Not on file documented as of this encounter Procedures Procedure Name Priority Date/Time Associated Diagnosis Comments REQUEST FOR 2ND READ MAMMO Routine 05/18/2014 3:25 PM EDT documented in this encounter Results * Request for 2nd read Mammo (05/18/2014 3:25 PM EDT) Anatomical Region Laterality Modality Other 05/18/2014 3:25 PM EDT Narrative 05/21/2014 10:37 AM EDT INTERPRETATION OF OUTSIDE MAMMOGRAMS (PERFORMED ON 05/14/14) FROM [facility] DATED 05/19/14: ?? DIAGNOSTIC IMAGING SUMMARY: ?? RIGHT BREAST: INCOMPLETE (BIRADS Category 0). ?? Finding: Spiculated mass. ?? Size: 2-3cm. ?? Location: 0900, 8cm from the nipple. ?? Recommendation: Pending further evaluation with mammography and ultrasound. This is likely amenable to ultrasound guided biopsy if it persists. ?? LEFT BREAST: NEGATIVE (BIRADS Category 1). ?? NARRATIVE: ?? CLINICAL INDICATION: I have been asked to consult on this patient by Dr. Dariela Stiles because she believes a review of this study may change or alter the care of this patient. ?? TECHNIQUE: Bilateral baseline screening mammograms from 05/14/14 from [facility]. ?? FINDINGS: The breasts are of scattered fibroglandular density. ?? In the outer aspect of the Right breast at approximately 0900 there is a 2-3cm spiculated mass/architectural distortion suspicious for malignancy. There are no other areas of abnormality within the Right breast. ?? The Left breast is normal. Procedure Note Antonella Boston MD - 05/21/2014 INTERPRETATION OF [facility]GR[facility] ([facility]14/14[facility] DIAGNOSTIC IMAGING SUMMARY: RIGHT BREAST: INCOMPLETE (BIRADS Category 0). Finding: Spiculated mass. Size: 2-3cm. Location: 0900, 8cm from the nipple. Recommendation: Pending further evaluation with mammography andultrasound. This is likely amenable to ultrasound guided biopsy if it persists. LEFT BREAST: NEGATIVE (BIRADS Category 1). NARRATIVE: CLINICAL INDICATION: I have been asked to consult on this patient by Dr.Elaine Stiles because she believes a review of this study may change or alter thecare of this patient. TECHNIQUE: Bilateral baseline screening mammograms from 05/14/14 from [facility]. FINDINGS: The breasts are of scattered fibroglandular density. In the outer aspect of the Right breast at approximately 0900 there is a2-3cm spiculated mass/architectural distortion suspicious for malignancy. Thereare no other areas of abnormality within the Right breast. The Left breast is normal. Dariela Stiles MD IMG OUTSIDE INTERPRE TATION ORDERABLES documented in this encounter Visit Diagnoses Not on filedocumented in this encounter Care Teams Applique Cutter Relationship Specialty Start Date End Date Donna Mohr APRN [address] [place] [address] PCP - General 12/12/11 05/20/14 documented as of this encounter
--- OUTSIDE RECORDS SUMMARY | 2024-04-22 23:44 | XMS_ITS | Encounter Summary ---
Author Organization [facility] Address [facility] [place] [address] Care Team Providers Care Exercise Science Internship Name Role Phone Juma Herrera MD Primary Care Provider [phone] Encounter Details Date Type Department Care Team (Latest Contact Info) Description 05/24/2014 8:27 AM EDT - 05/24/2014 11:59 PM EDT Hospital Encounter Mammography at [facility] [place] [phone] CLINIC, Dariela Romero MD [address] [place], [place] [id number] Other (abnormal) findings on radiological examination of breast Discharge Disposition: Home Social History Tobacco Use Types Packs/Day Years Used Date Smoking Tobacco: Former Sex and Gender Information Value Date Recorded Sex Assigned at Not on file Gender Identity Not on file Sexual Orientation Not on file documented as of this encounter Medications at Time of Discharge Medication Sig Dispensed Refills Start Date End Date methylphenidate (RITALIN) 20 mg tablet Take 20 mg by mouth 2 times daily. methylphenidate (RITALIN LA) 10 mg 24 hr capsule Take 10 mg by mouth every morning. CIS Free Text Med - Phenergan 09/10/2006 ibuprofen (ADVIL;MOTRIN) 600 mg tablet 600mg, PO, QID 09/10/2006 DULoxetine (CYMBALTA) 30 mg capsule 09/10/2006 gabapentin (NEURONTIN) 300 mg capsule Take 300 mg by mouth 3 times daily. 06/03/2014 topiramate (TOPAMAX) 100 mg tablet Take 100 mg by mouth 2 times daily. 06/03/2014 NORTRIPTYLINE HCL (NORTRIPTYLINE ORAL) 09/10/2006 014 documented as of this encounter Plan of Treatment Not on file documented as of this encounter Procedures Procedure Name Priority Date/Time Associated Diagnosis Comments MAMMO DIRECT DIGITAL UNILATERAL Routine 05/24/2014 9:09 AM EDT Other (abnormal) findings on radiological examination of breast documented in this encounter Results * Mammo direct digital unilateral (05/24/2014 9:09 AM EDT) Anatomical Region Laterality Modality Breast N/A Mammography 05/24/2014 9:09 AM EDT Narrative 05/27/2014 10:31 AM EDT RIGHT UNILATERAL DIAGNOSTIC MAMMOGRAM AND RIGHT BREAST ULTRASOUND ON 05/24/14: ?? DIAGNOSTIC IMAGING SUMMARY: ?? RIGHT BREAST LESION 1: HIGHLY SUGGESTIVE OF MALIGNANCY (BIRADS Category 5). ?? Finding: Mass. ?? Size: 15mm. ?? Location: 0830 position, 9cm from the nipple. ?? Recommendation: Ultrasound guided biopsy to confirm or refute this is a malignancy versus a radial scar. This has been scheduled for 05/27/14 at 10:50am. ?? Preliminary report E-mailed to Dr. Dariela Stiles on 05/24/14. ?? NARRATIVE: ?? CLINICAL INDICATION: Question of a mass and possible architectural distortion in the outer Right breast noted on recent interpretation of outside mammograms. ?? TECHNIQUE: ML, spot CC and spot MLO 3D views obtained with direct digital capture followed by an ultrasound of the Right breast. ?? FINDINGS: In the lateral aspect of the Right breast is a 2.7cm spiculated mass with distortion. The remainder of the breast is normal. ? Targeted ultrasound at the 0830 position, 9cm from the nipple demonstrates a 15mm hypoechoic mass, taller than wide with irregular and spiculated margins, decreased through transmission and immediately adjacent cysts. ? Procedure Note Monica Ann MD - 05/27/2014 RIGHT UNILATERAL DIAGNOSTIC MAMMOGRAM AND RIGHT BREAST ULTRASOUND ON05/24/14: DIAGNOSTIC IMAGING SUMMARY: RIGHT BREAST LESION 1: HIGHLY SUGGESTIVE OF MALIGNANCY (BIRADS Category5). Finding: Mass. Size: 15mm. Location: 0830 position, 9cm from the nipple. Recommendation: Ultrasound guided biopsy to confirm or refute this is a malignancy versus a radial scar. This has been scheduled for 05/27/14 at 10:50am. Preliminary report E-mailed to Dr. Dariela Stiles on 05/24/14. NARRATIVE: CLINICAL INDICATION: Question of a mass and possible architecturaldistortion in the outer Right breast noted on recent interpretation of outsidemammograms. TECHNIQUE: ML, spot CC and spot MLO 3D views obtained with direct digital capture followed by an ultrasound of the Right breast. FINDINGS: In the lateral aspect of the Right breast is a 2.7cm spiculatedmass with distortion. The remainder of the breast is normal. Targeted ultrasound at the 0830 position, 9cm from the nipple demonstratesa 15mm hypoechoic mass, taller than wide with irregular and spiculatedmargins, decreased through transmission and immediately adjacent cysts. Antonella Boston MD IMG MAMMO ORDERABLES documented in this encounter Visit Diagnoses Diagnosis Other (abnormal) findings on radiological examination of breast documented in this encounter Care Teams Exercise Science Internship Relationship Specialty Start Date End Date Juma Herrera MD [address] [place] [address] PCP - General 05/21/14 documented as of this encounter
--- OUTSIDE RECORDS SUMMARY | 2024-04-22 23:44 | XMS_ITS | Encounter Summary ---
Author Organization [facility] Address [facility] [place] [address] Care Team Providers Care Straddle Truck Operator Name Role Phone Juma Herrera MD Primary Care Provider [phone] Encounter Details Date Type Department Care Team (Late st Contact Info) Description 05/26/2014 [place] [address] Wu Vaz MD [facility] DR RADIOLOGY DEPT [place] [id number] Social History Tobacco Use Types Packs/Day Years Used Date Smoking Tobacco: Former Sex and Gender Information Value Date Recorded Sex Assigned at Not on file Gender Identity Not on file Sexual Orientation Not on file documented as of this encounter Progress Notes * Wu Vaz - 05/26/2014 11:37 AM EDT [...] on file documented as of this encounter Visit Diagnoses Not on filedocumented in this encounter Care Teams Straddle Truck Operator Relationship Specialty Start Date End Date Juma Herrera MD [address] [place] [address] [address] PCP - General 05/21/14 documented as of this encounter
--- OUTSIDE RECORDS SUMMARY | 2024-04-22 23:44 | XMS_ITS | Encounter Summary ---
Author Organization [facility] Address [facility] [place] [address] Care Team Providers Care Superintendent Measurement Name Role Phone Juma Herrera MD Primary Care Provider [phone] Encounter Details Date Type Department Care Team (Latest Contact Info) Description 05/27/2014 10:40 AM EDT - 05/27/2014 11:59 PM EDT Hospital Encounter Mammography at [facility] [place] [phone] Other (abnormal) findings on radiological examination of breast Social History Tobacco Use Types Packs/Day Years [...] Diagnosis Comments MAMMO DIRECT DIGITAL UNILATERAL Routine 05/27/2014 11:45 AM EDT Other (abnormal) findings on radiological examination of breast SURGICAL PATHOLOGY REPORT Routine 05/27/2014 11:15 AM EDT documented in this encounter Results * Mammo direct digital unilateral (05/27/2014 11:45 AM EDT) Anatomical Region Laterality Modality Breast N/A Mammography 05/27/2014 11:4 5 AM EDT Impressions 06/08/2014 10:16 AM EDT Impression: Concordant result Recommendation: Surgical excision as discussed with the patient and conveyed to [facility]. I performed the procedure without a resident. Cell phone: [phone] Narrative 06/08/2014 10:16 AM EDT VACUUM ASSISTED ULTRASOUND GUIDED BIOPSY OF THE RIGHT BREAST ON 05/27/14: Informed consent was obtained. Using sterile technique and 1% Lidocaine used for local anesthesia, a skin incision was made and a biopsy was performed using Ultrasound for image guidance. Clinical indication: Right breast 15mm mass/architectural distortion at 0830, 9cm from the nipple. 12-gauge Atec US device 5 core biopsy specimens obtained. ?? A SMark Eviva-Stereo 13 Cylinder marker clip was placed. Cranio-caudal and lateral digital mammography performed to determine biopsy marker placement, which was shown to be at the biopsy site. Satisfactory sampling was obtained. There were no procedural complications. 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 ?? Procedure Note Gabe Boston MD - 06/08/2014 VACUUM ASSISTED ULTRASOUND GUIDED BIOPSY OF THE RIGHT BREAST ON 05/27/14: Informed consent was obtained. Using sterile technique and 1% Lidocaineused for local anesthesia, a skin incision was made and a biopsy was performedusing Ultrasound for image guidance. Clinical indication: Right breast 15mm mass/architectural distortion [id number], 9cm from the nipple. 12-gauge Atec US device 5 core biopsy specimens obtained. A SMark Eviva-Stereo 13 Cylinder marker clip was placed. Cranio-caudal and lateral digital mammography performed to determine biopsy markerplacement, which was shown to be at the biopsy site. Satisfactory sampling was obtained. There were no procedural complications. 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 IMPRESSION Impression: Concordant result Recommendation: Surgical excision as discussed with the patient andconveyed to [facility]. I performed the procedure without a resident. Cell phone: [phone] Monica Ann MD IMG MAMMO ORDERABLES * Surgical Pathology Report (05/27/2014 11:15 AM EDT) Final Diagnosis ? [facility] ? Provider: ?? GABE BOSTON ?Pt. Name: ?? CORETTAROSCOETIA Eileen ? Acc #: ?[id number] ?Pt. ? Col Date: ?? 05/27/2014 ? /Sex: ?1975,(38 ? years),Female ? Rec Date: ?? 05/27/2014 ? LOC: ?3S ? SURGICAL PATHOLOGY ? ---Pathologic Diagnosis--- ? Needle biopsies: ?Right breast. ? Diagnosis: ?Sclerosing papillary lesion (See Comment) ? Fibrocystic disease with adenosis, cysts, ? usual ductal hyperplasia ? Microcalcificatio ns: ??Identified in adenopsis ? CR-0 ? 05/28/14 ? VAM ? 05/28/14 Verified by: ? Erasmo MEHTA, Yfn Trinh ? Pathologist ? (Electronic Signature) ? The attending pathologist whose signature appears on this report has ? reviewed all diagnostic slides and has edited the gross and/or ? microscopic portion of the report in rendering the final pathologic ? diagnosis. ? ---Comment--- ? In these sections the lesion has features of a benign sclerosing papilloma ? however it is incompletely sampled. ? ---Gross Description--- ? A - Labeled/Fixative: Right breast ultrasound biopsy, formalin. ? Quantity/Size: Seven, ranging from 0.3 x 0.3 cm to 2.5 x 0.3 cm. ? Tissue Description: Fibrofatty needle core biopsies. ? Ischemic Time: 5 minutes. ? Sections/Processi ng: (T2) ??sns ? ---Clinical Information--- ? Specimen Submitted: ? A - Right breast ultrasound biopsy ? Clinical History: ? Architectural distortion ? Clinical Diagnosis: ? 1. ??CA 05/28/2014 9:57 AM EDT [facility] BREAST STRUCTURE / Unknown 05/27/2014 11:15 AM EDT 05/27/2014 11:15 AM EDT Gabe Boston MD PATHOLOGY/CYTOLOGY O [address] [facility] [place] [address] documented in this encounter Visit Diagnoses Diagnosis Other (abnormal) findings on radiological examination of breast documented in this encounter Care Teams Superintendent Measurement Relationship Specialty Start Date End Date Juma Herrera MD [address] [place] [address] PCP - General 05/21/14 documented as of this encounter
--- OUTSIDE RECORDS SUMMARY | 2024-04-22 23:44 | XMS_ITS | Encounter Summary ---
Author Organization [facility] Address [facility] [place] [address] Care Team Providers Care Personal Injury Law Specialist Name Role Phone Juma Herrera MD Primary Care Provider [phone] Encounter Details Date Type Department Care Team (Late st Contact Info) Description 06/09/2014 [place] [address] Wu Vaz MD [facility] [place] [address] Social History Tobacco Use Types Packs/Day Years Used Date Smoking Tobacco: Former Sex and Gender Information Value Date Recorded Sex Assigned at Not on file Gender Identity Not on file Sexual Orientation Not on file documented as of this encounter Progress Notes * Wu Vaz - 06/09/2014 2:01 PM EDT Pre-procedure note for needle breast biopsies performed in radiology. Procedure date: Tomorrow Procedure type: right breast NLOC with U/S [...] on filedocumented in this encounter Care Teams Personal Injury Law Specialist Relationship Specialty Start Date End Date Juma Herrera MD [address] [place] [address] PCP - General 05/21/14 documented as of this encounter
--- OUTSIDE RECORDS SUMMARY | 2024-04-22 23:44 | XMS_ITS | Encounter Summary ---
Author Organization [facility] Address [facility] [place] [address] Care Team Providers Care Solid Center Winder Name Role Phone Juma Herrera MD Primary Care Provider [phone] Encounter Details Date Type Department Care Team (Latest Contact Info) Description 06/10/2014 7:25 AM EDT - 06/10/2014 11:59 PM EDT Hospital [place] [phone] CLINIC, DR STEVENSON Barber, Cheng Olvera MD [facility] [place] [address] Breast lesion Discharge Disposition: Home Social History Tobacco Use Types Packs/Day Years Used Date Smoking Tobacco: Former Sex and Gender Information Value Date Recorded Sex Assigned at Not on file Gender Identity Not on file Sexual Orientation Not on file documented as of this encounter Medications at Time of Discharge Medication Sig Dispensed Refills Start Date End Date HYDROcodone-acetaminophe n 5-325 mg Tablet Take 1-2 tablets by mouth every 6 hours as needed for Pain. 30 tablet 0 06/10/2014 propranolol (INDERAL LA) 80 mg Capsule,Sustained Action 24 hr Take 120 mg by mouth daily. pregabalin (LYRICA) 100 mg Capsule Take 100 mg by mouth 3 times daily. meloxicam (MOBIC) 15 mg Tablet Take 15 mg by mouth daily. methylphenidate (RITALIN) 20 mg tablet Take 20 mg by mouth 2 times daily. methylphenidate (RITALIN LA) 10 mg 24 hr capsule Take 10 mg by mouth every morning. CIS Free Text Med - Phenergan 09/10/2006 ibuprofen (ADVIL;MOTRIN) 600 mg tablet 600mg, PO, QID 09/10/2006 DULoxetine (CYMBALTA) 30 mg capsule 09/10/2006 documented as of this encounter Plan of Treatment Not on file documented as of this encounter Procedures Procedure Name Priority Date/Time Associated Diagnosis Comments MAMMO NEEDLE LOCALIZATION Routine 06/10/2014 8:20 AM EDT Breast lesion documented in this encounter Results * Mammo needle localization (06/10/2014 8:20 AM EDT) Anatomical Region Laterality Modality Breast N/A Mammography 06/10/2014 8:20 AM EDT Narrative 06/11/2014 5:34 PM EDT NEEDLE LOCALIZATION AND SPECIMEN RADIOGRAPH OF THE RIGHT BREAST ON 06/10/14: ?? CLINICAL INDICATION: Right breast 15mm mass/clip in the lower, outer quadrant at 0830, 9cm from the nipple. ?? Needle localization of the suspicious area (clip/lesion) in the Right breast was performed with mammographic guidance. ?? Cranio-caudal and 90&ordm; digital mammography views were obtained following localization to document wire position. ?? Specimen mammography was performed. The suspicious areas (sclerosing lesion and clip) are centered in the specimen. ? Report of specimen called to the OR at 11:56am. ?? I performed the procedure without a resident. Procedure Note Pratibha Rodriguez MD - 06/11/2014 NEEDLE LOCALIZATION AND SPECIMEN RADIOGRAPH OF THE RIGHT BREAST ON06/10/14: CLINICAL INDICATION: Right breast 15mm mass/clip in the lower, outerquadrant at 0830, 9cm from the nipple. Needle localization of the suspicious area (clip/lesion) in the Rightbreast was performed with mammographic guidance. Cranio-caudal and 90&ordm; digital mammography views were obtainedfollowing localization to document wire position. Specimen mammography was performed. The suspicious areas (sclerosinglesion and clip) are centered in the specimen. Report of specimen called to the OR at 11:56am. I performed the procedure without a resident. Cheng Barber MD IMG MAMMO ORDERABLES documented in this encounter Visit Diagnoses Diagnosis Breast lesion Unspecified breast disorder documented in this encounter Care Teams Solid Center Winder Relationship Specialty Start Date End Date Juma Herrera MD [address] [place] [address] PCP - General 05/21/14 documented as of this encounter
--- OUTSIDE RECORDS SUMMARY | 2024-04-22 23:44 | XMS_ITS | Encounter Summary ---
Author Organization [facility] Address [facility] [place] [address] Care Team Providers Care Senior Painter Name Role Phone Juma Herrera MD Primary Care Provider Encounter Details Date Type Department Care Team (Late st Contact Info) Description 06/02/2014 Orders Only [place] [phone] Cheng Barber MD [facility] [place] [place] [address] Breast lesion Social History Tobacco Use Types Packs/Day Years Used Date Smoking Tobacco: Former Sex and Gender Information Value Date Recorded Sex Assigned at Not on file Gender Identity Not on file Sexual Orientation Not on file documented as of this encounter Plan of Treatment Not on file documented as of this encounter Results * Mammo specimen (06/10/2014 11:56 AM EDT) Anatomical Region Laterality Modality Breast N/A Mammography 06/10/2014 11:5 6 AM EDT Narrative 06/11/2014 5:34 PM EDT [...] resident. Cheng Barber MD IMG MAMMO ORDERABLES * Mammo needle localization (06/10/2014 8:20 AM [...] disorder documented in this encounter Care Teams Senior Painter Relationship Specialty Start Date End Date Juma Herrera MD [address] [place] [address] PCP - General 05/21/14 documented as of this encounter
--- OUTSIDE RECORDS SUMMARY | 2024-04-22 23:44 | XMS_ITS | Encounter Summary ---
Author Organization [facility] Address [facility] [place] [address] Care Team Providers Care Senior Actuarial Analyst Name Role Phone Juma Herrera MD Primary Care Provider [phone] Encounter Details Date Type Department Care Team (Late st Contact Info) Description 06/02/2014 10:30 AM EDT Office Visit Same Day at [facility] [place], operated by [facility] [place] [phone] Anesthesia Record Procedure Summary Procedure Name Responsible Anesthesiologist Anesthesia Start Time Anesthesia Stop Time EXCISION LESION, BREAST W/ PREOP.MARKER (NEEDLE LOC.) (WRVU 6.69) (Right: Breast) Teri Dsouza MD 06/10/14 1117 06/10/14 1213 Events Date Time Event Comment 06/10/2014 0854 1117 Start 1119 AN Verify 1124 An Start Data 1125 Anesthesia Ready 1136 Quick Note Tolerated local , no reaction to stimulus 1138 Skin Incision 1209 an stop data 1213 Stop 1213 Handoff The patient's c solomon was reviewed. The current anestetic course as well as the anesthetic plans were also reviewed. Meds * Agents No agents on file. * Blood No blood administrations on file. Lines, Drains, and Airways Type Details Placement Removal Incision 06/10/14; breast; 04/30/22 (LDA cleanup utility RA#[id number]); 1715 (LDA cleanup utility RA#[id number]) 06/10/14 0000 by Evie Mendoza 04/30/22 1715 by Ramon Quevedo (RETIRED) Peripheral IV Line - Single Lumen cephalic vein left (lateral side of arm); 20 gauge; 06/10/14; 1247 06/10/14 1133 by 06/10/14 1247 by Rai, Eneroliza J, RN documented in this encounter Social History Tobacco [...] on filedocumented in this encounter Care Teams Senior Actuarial Analyst Relationship Specialty Start Date End Date Juma Herrera MD [address] [place] [address] PCP - General 05/21/14 documented as of this encounter
--- OUTSIDE RECORDS SUMMARY | 2024-04-22 23:44 | XMS_ITS | Encounter Summary ---
Author Organization [facility] Address [facility] [place] [address] Care Team Providers Care Administrative Assistant Front Desk Name Role Phone Juma Herrera MD Primary Care Provider [phone] Encounter Details Date Type Department Care Team (Late st Contact Info) Description 06/10/2014 11:30 AM EDT - 06/10/2014 12:38 PM EDT Surgery [place] [phone] Cheng Car MD [facility] [place] [place] [address] EXCISION LESION, BREAST W/ PREOP.MARKER (NEEDLE LOC.) (WRVU 6.69) Social History Tobacco Use Types Packs/Day Years [...] 36.9 ??C (98.4 ??F) 06/10/2014 12:13 PM E DT Respiratory Rate 20 06/10/2014 12:13 PM EDT Oxygen Saturation 97% 06/10/2014 12:16 PM EDT Inhaled Oxygen Concentration - - Weight - - Height - - Body Mass Index - - documented in this encounter Discharge Instructions * Discharge Instructions* Darren Rai RN - 06/10/2014 12:18 PM EDT [...] beverages or make any legal decisions after havinggeneral anesthesia. The medications given change your reaction [...] please ask the surgeons office what they recommend for prevention of this. Some non-pharmaceutical means of constipation prevention include increasing intake of fluids, eating more fruits and vegetables as well as fruit juices. If you are uncomfortable and/or unable to urinate within 8 hours of discharge and it is before 5 pm, call your physician. If it is after 5pm go to the closest emergency room or call the hospital road mixer operator at [phone] and ask for physician position clerk covering for your physician. Questions or problems after 5pm or on a weekend: Call the [facility] road mixer operator at and ask for the physician position clerk covering for your doctor. * Patient Instructions* Kenrick Diehl MD - 06/10/2014 12:22 PM EDT Instructions [...] directly on the incision (steri-strips or butterflys), pleaseleave them on until they fall off on their own. You may trim them back as they begin to peel up. ICE: You may apply ice to incision during the first 48 hours following surgery to help limit swelling, bruising, and discomfort. You may also find wearing a bra for the first two days following surgery will help with discomfort, although this is not [...] 101.3 F. The number for questions is [phone] before 5 PM weekdays and [phone] after 5 PM and weekends. Pain Medication: No driving for 8 hours after any dose of opioid pain medication if one was prescribed for you. You may use ibuprofen (motrin, advil) in addition to this medication if your pain is not totally controlled by the opioid. Follow-up: Follow-up appointment will be scheduled with Dr. Car in 1-2 weeks. Appointment will bemailed to you. Please call [phone] (clinic number for appointments) to confirm date [...] capsule 09/10/2006 documented as of this encounter H&P Notes * Cheng Car MD - 06/10/2014 11:09 AM EDT I examined this patient today She is marked and is ready for surgery * Kenrick Diehl MD - 06/10/2014 11:06 AM EDT Interval H&P The patient was seen and examined in the pre-operative holding area. There have been no interval changes in history and physical. Needle localization preformed this morning. Complaining of pain at insertion site \KENRICK DIEHL MD documented in this encounter Miscellaneous Notes * Miscellaneous - Provider, Scanning - 06/10/2014 8:58 PM EDT * Miscellaneous - Provider, Scanning - 06/10/2014 1:49 PM EDT * Op Note - Cheng Car MD - 06/10/2014 12:16 PM EDT [facility] Operative Note Patient Name: Tia Spain : [id number] MR#: [id number] Case Date: 06/10/2014 Surgeon: Surgeon(s) and Role: * Cheng Car MD - Primary * Kenrick Diehl MD - Resident-Jointer Operator Preoperative diagnosis: RIGHT BREAST LESION Postoperative diagnosis: [...] placed, the patient tolerated the operation well. * OR Attestation - Cheng Car MD - 06/10/2014 12:16 PM EDT Attestation: Case Date: 06/10/2014 I performed this operation with the assistance of dr kenrick CAR MD 06/10/2014 documented in this encounter Plan of Treatment Not on file documented as of this encounter Procedures Procedure Name Priority Date/Time Associated Diagnosis Comments MAMMO SPECIMEN Routine 06/10/2014 11:56 AM EDT Breast lesion SURGICAL PATHOLOGY REPORT Routine 06/10/2014 11:49 AM EDT SPECIMEN TO PATHOLOGY Routine 06/10/2014 11:49 AM EDT EXCISION LESION, BREAST W/ PREOP.MARKER (NEEDLE LOC.) (WRVU 6.69) 06/10/2014 11:18 AM EDT RIGHT BREAST LESION documented in this encounter Results * Mammo specimen (06/10/2014 [...] performed the procedure without a resident. Cheng Car MD IMG MAMMO ORDERABLES * Surgical Pathology Report (06/10/2014 11:49 AM EDT) Final Diagnosis ? [facility] ? Provider: ?? CHENG CAR ?Pt. Name: ?? CORETTA TIA L ? Acc #: ?[id number] ?Pt. ? Col Date: ?? 06/10/2014 ? /Sex: ?1975,(39 ? years),Female ? Rec Date: ?? 06/10/2014 ? LOC: ?[facility] ? SURGICAL PATHOLOGY ? ---Pathologic Diagnosis--- ? Right breast lumpectomy: ? Atypical papillary, radial sclerosing lesion. ? Small radial scars, florid UDH, papillary hyperplasia, intraductal ? papilloma, cysts, sclerosing adenosis and columnar cell hyperplasia with ? atypia (focal). ? Focal stromal PASH. ? Healing biopsy site. ? (See Comment.) ? 06/11/14 ? [facility] ? 06/14/14 Verified by: ? Rosalie Vega DO ? Pathologist ? (Electronic Signature) ? The attending pathologist whose signature appears on this report has ? reviewed all diagnostic slides and has edited the gross and/or ? microscopic portion of the report in rendering the final pathologic ? diagnosis. ? ---Comment--- ? The patient's breast tissue has a dense area of radial sclerosing lesions ? ([id number]), papillomas, and sclerosing adenosis, forming a conglomerate ? of structures. ??The atypia is characterized by areas of epithelial ? expansion with cytologic clonal appearance. ? No malignancy is seen. ? ---Gross Description--- ? A - Labeled/Fixative: Right breast lumpectomy, fresh. ? SPECIMEN DESCRIPTION ? Resection Specimen: Intact lumpectomy ? Qty/Size/Weight: Single, 8.5 x 5.5 x 2.6 cm, 52 grams. ? Radiograph: Specimen mammogram shows localization wire and biopsy clip. ? Mammogram dated 06/08/2014 shows a 15 mm mass/architectura l distortion at ? 8:30, nine cm from the nipple. ? Specimen Description: According to the established protocol the ink ? designations are red (medial), yellow (lateral), orange (cranial), green ? (caudal), black (deep) and blue (superficial). ? Tissue Sections: The specimen is serially sectioned perpendicular to the ? long axis from red to yellow into 15 slices, each averaging 0.5 cm in ? thickness. ? [facility] ? Provider: ?? CHENG CAR ?Pt. Name: ?? TIA SPAIN ? Acc #: ?[id number] ?Pt. ? Col Date: ?? 06/10/2014 ? /Sex: ?1975,(39 ? years),Female ? Rec Date: ?? 06/10/2014 [...] cm to red margin, 2.0 cm to yellow margin. ? OTHER ? Parenchyma: Remaining parenchyma consists of fibrofatty breast tissue. No ? other lesions grossly identified. ? Wire/Clip: Wire tip identified in slides IV. Biopsy clip identified in ? slides X. ? SECTIONS/PROCESSI NG: (A1) red margin; (A2) telemarketing sales representative section from ? slice III; (A3) telemarketing sales representative section from slice VII; (A4) telemarketing sales representative ? section from slice V; (A5) site of biopsy clip; (A6-A7) telemarketing sales representative ? sections from slice XI; (A8) telemarketing sales representative section of slice XV. (R8) ? Ischemic Time: N/A minutes ??lloyd ? ---Clinical Information--- ? Specimen Submitted: ? A - Right breast lumpectomy ? Clinical History: ? Right breast lesion ? Clinical Diagnosis: ? Same 06/14/2014 3:40 PM EDT [facility] BREAST STRUCTURE / Unknown 06/10/2014 11:49 AM EDT 06/10/2014 11:49 AM EDT Cheng Car MD PATHOLOGY/CYTOLOGY O RDERABLES Performing Organization Address City/State/[facility] Co de Phone Number [facility] [place] [address] * Specimen to Pathology (surgical or derm) (06/10/2014 11:49 AM EDT) AP Specimen 06/10/2014 11:4 9 AM EDT 06/10/2014 11:49 AM EDT Narrative RAYNA ELLIS - 06/10/2014 11:49 AM EDT Specimen requisition ordered. ??Separate Pathology report to follow Cheng Car MD PATHOLOGY/CYTOLOGY O MELODIE RAYNA ELLIS documented in this encounter Visit Diagnoses Not on filedocumented in this encounter Administered Medications Inactive Administered Medications - up to 3 most recent administrations Medication Order MAR Action Action Date Dose Rate Site BUpivacaine (PF) (MARCAINE) 0.5 % (5 mg/mL) injection ONCE PRN, Starting on Karen 06/10/14 at 1144, Until Karen 06/10/14 at 1501, Intra-Operative (Intra-Procedure), Routine Given 06/10/2014 12:00 PM EDT 2.5 mLs 19- Surgical Site Given 06/10/2014 11:44 AM EDT 30 mLs 1 9- Surgical Site fentaNYL (PF) 50 mcg/mL 2mL syringe 25-50 mcg, Intravenous, EVERY 5 MIN PRN, Pain, for breakthrough pain, Starting on Karen 06/10/14 at 1031, Until Karen 06/10/14 at 1501, Hold for respiratory rate less than 10 per minute. Maximum dose: 250 mcg over one hour., PACU Recovery Given 06/10/2014 10:34 AM EDT 50 mcg HYDROcodone-acetaminophen 5-325 mg per tablet 1-2 tablet 1-2 tablet, Oral, EVERY 6 HOURS PRN, Starting on Karen 06/10/14 at 1215, Until Karen 06/10/14 at 1501, Pain, Maximum dose of acetaminophen is 4000 mg from all sources in 24 hours., Routine Given 06/10/2014 12:46 PM EDT 1 tablet lidocaine (PF) (XYLOCAINE) 10 mg/mL (1 %) injection ONCE PRN, Starting on Karen 06/10/14 at 1144, Until Karen 06/10/14 at 1501, Intra-Operative (Intra-Procedure), Routine Given 06/10/2014 12:00 PM EDT 25 mg 19- Surgical Site Given 06/10/2014 11:44 AM EDT 1 vial 1 9- Surgical Site documented in this encounter Active and Recently Administered Medications Times are shown in EDT. Continuous Medication Order 06/08/2014 06/09/2014 06/10/2014 lactated ringers infusion 1,000 mL (CANCELED) 1,000 mL, at 100 mL/hr, Intravenous, CONTINUOUS, Starting on Karen 06/10/14 at 0715, Until Karen 06/10/14 at 1501, Day of Surgery (Day of Procedure) 1117 (New Bag - Prov ider: Becki Teresa CRNA)1131 (Canceled Entry - Provider: Becki Teresa CRNA) PRN Medication Order 06/08/2014 06/09/2014 06/10/2014 BUpivacaine (PF) (MARCAINE) 0.5 % (5 mg/mL) injection (CANCELED) ONCE PRN, Starting on Karen 06/10/14 at 1144, Until Karen 06/10/14 at 1501, Intra-Operative (Intra-Procedure), Routine 1144 (Given - Provid er: Cheng Car MD - Comment: 30ml of 0.25% bupivicaine mixed with 30ml of 1% Lidocaine. 10 ml administered pre-op by surgeon.)1200 (Given - Provider: Cheng Car MD - Comment: additional 5ml of 1:1 0.5% bupivacaine/1% lidocaine solution given) fentaNYL (PF) 50 mcg/mL 2mL syringe (CANCELED) 25-50 mcg, Intravenous, EVERY 5 MIN PRN, Pain, for breakthrough pain, Starting on Karen 06/10/14 at 1031, Until Karen 06/10/14 at 1501, Hold for respiratory rate less than 10 per minute. Maximum dose: 250 mcg over one hour., PACU Recovery 1034 (Given - Provid er: Ivelisse Bailey RN - Comment: given preop for wire breast pain) HYDROcodone-acetaminophen 5-325 mg per tablet 1-2 tablet 1-2 tablet, Oral, EVERY 6 HOURS PRN, Starting on Karen 06/10/14 at 1215, Until Karen 06/10/14 at 1501, Pain, Maximum dose of acetaminophen is 4000 mg from all sources in 24 hours., Routine 1246 (Given - Provid er: Darren Rai RN) lidocaine (PF) (XYLOCAINE) 10 mg/mL (1 %) injection (CANCELED) ONCE PRN, Starting on Karen 06/10/14 at 1144, Until Karen 06/10/14 at 1501, Intra-Operative (Intra-Procedure), Routine 1144 (Given - Provid er: Cheng Car MD - Comment: 30ml of 0.25% bupivicaine mixed with 30ml of 1% Lidocaine. 10 ml administered pre-op by surgeon.)1200 (Given - Provider: Cheng Car MD - Comment: additional 5mls of 1:1 1% lidocaine/0.5% bupivacaine solution given) documented in this encounter Care Teams Administrative Assistant Front Desk Relationship Specialty Start Date End Date Juma Herrera MD [address] [place] [address] PCP - General 05/21/14 documented as of this encounter
--- OUTSIDE RECORDS SUMMARY | 2024-04-22 23:44 | XMS_ITS | Clinical Summary ---
Author Organization [facility] Address [facility] [place] [address] Care Team Providers Care Roll Wrapper Name Role Phone Juma Herrera MD Primary Care Provider [phone] Allergies Active Allergy Reactions Criticality Noted Date Comments Codeine Phosphate CIS - Nausea/Vomiting Medications Medication Sig Dispensed Refills Start Date End Date Status CIS Free Text Med - Phenergan 09/10/2006 Active ibuprofen (ADVIL;MOTRIN) 600 mg tablet 600mg, PO, QID 09/10/2006 Active DULoxetine (CYMBALTA) 30 mg capsule 09/10/2006 Active methylphenidate (RITALIN) 20 mg tablet Take 20 mg by mouth 2 times daily. Active methylphenidate (RITALIN LA) 10 mg 24 hr capsule Take 10 mg by mouth every morning. Active propranolol (INDERAL LA) 80 mg Capsule,Sustained Action 24 hr Take 120 mg by mouth daily. Active pregabalin (LYRICA) 100 mg Capsule Take 100 mg by mouth 3 times daily. Active meloxicam (MOBIC) 15 mg Tablet Take 15 mg by mouth daily. Active HYDROcodone-acetamino phen 5-325 mg Tablet Take 1-2 tablets by mouth every 6 hours as needed for Pain. 30 tablet 0 06/10/2014 Active Active Problems Problem Noted Date Diagnosed Date Papilloma of right breast 06/17/2014 Social History Tobacco Use Types Packs/Day Years Used Date Smoking Tobacco: Former Sex and Gender Information Value Date Recorded Sex Assigned at Not on file Gender Identity Not on file Sexual Orientation Not on file Last Filed Vital Signs Vital Sign Reading Time Taken Comments Blood Pressure 138/67 06/17/2014 1:38 PM EDT Pulse 85 06/17/2014 1:38 PM EDT Temperature 37.1 ??C (98.8 ??F) 06/17/2014 1:38 PM ED T Respiratory Rate 20 06/17/2014 1:38 PM EDT Oxygen Saturation 100% 06/17/2014 1:38 PM EDT Inhaled Oxygen Concentration - - Weight 149 kg (328 lb 7.8 oz) 06/17/2014 1:38 PM EDT Height 169 cm (5' 6.54) 06/17/2014 1:38 PM EDT Body Mass Index 52.17 06/17/2014 1:38 PM EDT Plan of Treatment Health Maintenance Due Date Last Done Comments CT Colonography 1973 Colonoscopy 1973 Colorectal Cancer Screening 1973 FIT DNA 1973 FIT 1973 Sigmoidoscopy (10 year) with FIT yearly 1973 Sigmoidoscopy 1973 HIV screen 1991 Hepatitis C Screening 1991 Hepatitis B vaccine (0-59 yrs) (1) 1992 Tdap adult 1992 Tetanus vaccine 1992 HPV test 2003 PAP Smear 2003 Breast Cancer Share Decision Needed 2013 Breast Cancer screening 2013 Covid-19 Vaccine (1 - 2022-24 season) 2023 Zoster vaccine (1 of 2) 2023 Influenza (Flu) vaccine (1 o f 1 - Influenza standard series) 05/03/2024 Advance Directives * Full Code (Latest Code Status on File) Date Activated Date Inactivated Comments 06/10/2014 6:46 AM 06/10/2014 3:01 PM Question Answer Comments Does patient have decision m aking capacity? Yes, order is based on Patient wishes. Care Teams Roll Wrapper Relationship Specialty Start Date End Date Juma Herrera MD [address] [place] [address] [address] [place] [address] PCP - General 05/21/14
--- OUTSIDE RECORDS SUMMARY | 2024-04-22 23:44 | XMS_ITS | Encounter Summary ---
Author Organization [facility] Address [facility] [place] [address] Care Team Providers Care Roller Operator Name Role Phone Juma Herrera MD Primary Care Provider [phone] Encounter Details Date Type Department Care Team (Late st Contact Info) Description 11/30/2016 [place] [address] Compa Chu, [facility] [place] [address] Social History Tobacco Use Types Packs/Day Years Used Date Smoking Tobacco: Former Sex and Gender Information Value Date Recorded Sex Assigned at Not on file Gender Identity Not on file Sexual Orientation Not on file documented as of this encounter Progress Notes * Compa Chu, - 11/30/2016 3:18 PM EDT We were contacted by Dr. Dariela Stiles regarding Ms. Tia Spian. Ms. Spain is a 41 y.o. female with a history of bipolar disorder, anxiety, and PTSD who is POD#8 s/p laparoscopic-assisted vaginal total hysterectomy for menometrorrhagia at . This surgery had no immediate complications, and she was discharged to home on POD#1. She presented to the ED at [facility] (11/29/2016) with a complaint of increased vaginal discharge, which the patient was concerned may be fecal in origin. HEAD OF STOCK consultation in the ED found the discharge [...] she is not ill-appearing and admission to [facility] was not thought to be warranted [...] safe due to the risk of injuring bowel. Dr. Stiles understood these reasons not to proceed with image- guided drain placement at this time. Dr. Nassar explained the IR services at [facility] are available 25/03, and if any new imaging becomesavailable for review then we would be glad to assist with any possible interventions for Ms. Spain. Compa Chu DO 11/30/2016 documented in this encounter Plan of Treatment Not on file documented as of this encounter Visit Diagnoses Not on filedocumented in this encounter Care Teams Roller Operator Relationship Specialty Start Date End Date Juma Herrera MD [address] [place] [address] PCP - General 05/21/14 documented as of this encounter
--- OUTSIDE RECORDS SUMMARY | 2024-04-22 23:44 | XMS_ITS | Encounter Summary ---
Author Organization [facility] Address [facility] [place] [address] Care Team Providers Care Fulfillment Specialist Name Role Phone Juma Herrera MD Primary Care Provider [phone] Reason for Visit * Reason Comments Follow-up Encounter Details Date Type Department Care Team (Late st Contact Info) Description 06/17/2014 1:40 PM EDT Office Visit [place] [phone] Cheng Barber MD [facility] [place] [address] Papilloma of breast, right (Primary Dx) Discharge Disposition: Home Social History Tobacco Use [...] EDT documented in this encounter Progress Notes * Cheng Barber MD - 06/17/2014 1:51 PM EDT COPY: Juma Herrera M.D. Tia is a 45-year-old woman who developed a [...] encounter Visit Diagnoses Diagnosis Papilloma of breast, right- Primary documented in this encounter Care Teams Fulfillment Specialist Relationship Specialty Start Date End Date Juma Herrera MD [address] [place] [address] PCP - General 05/21/14 documented as of this encounter
--- OUTSIDE RECORDS SUMMARY | 2024-04-22 23:44 | XMS_ITS | Encounter Summary ---
Author Organization [facility] Address [facility] [place] [address] Care Team Providers Care Chimney Builder Brick Name Role Phone Juma Herrera MD Primary Care Provider [phone] Encounter Details Date Type Department Care Team (Latest Contact Info) Description 11/29/2016 - 11/29/2016 11:59 PM EDT Hospital Encounter [place] [phone] French Graff MD [facility] [place] [address] Pain Discharge Disposition: Home Social History Tobacco Use [...] Procedure Name Priority Date/Time Associated Diagnosis Comments FILM LIBRARY STORAGE ONLY CT PELVIS Routine 11/29/2016 12:00 AM EDT Pain documented in this encounter Results * Film Library- Storage Only CT Pelvis (11/29/2016 12:00 AM EDT) Narrative [facility] - 11/30/2016 2:30 PM EDT This exam is for storage only and is auto-finalizing. French Graff MD IMG FILM LIBRARY ORD ERABLES Performing Organization Address City/State/[facility] Co de Phone Number [place], [place] documented in this encounter Visit Diagnoses Diagnosis Pain Generalized pain documented in this encounter Care Teams Chimney Builder Brick Relationship Specialty Start Date End Date Juma Herrera MD [address] [place] [address] PCP - General 05/21/14 documented as of this encounter
--- OUTSIDE RECORDS SUMMARY | 2024-04-22 23:44 | XMS_ITS | Encounter Summary ---
Author Organization [facility] Address [facility] [place] [address] Care Team Providers Care Gallery Or Museum Guide Name Role Phone Juma Herrera MD Primary Care Provider [phone] Encounter Details Date Type Department Care Team (Late st Contact Info) Description 06/10/2014 11:17 AM EDT Anesthesia Event [facility] [place] [address] Teri Dsouza MD [facility] DR [place] [address] Janie Ellison PA [facility] [place] [address] Anesthesia Record Procedure Summary Procedure Name Responsible [...] the anesthetic plans were also reviewed. Meds Name Total Midazolam 2 mg propofol 120 mg propofol INF 539.11 mg ketamine 10 mg/mL 70 mg Glycopyrrolate 0.1 mg lactated ringers infusion 1,000 mL 0 mL * Agents Name O2 Air N2O O2 Auxiliary Flowmeter 1 * Blood No blood administrations on file. Lines, Drains, and Airways Type Details Placement Removal Incision 06/10/14; breast; 04/30/22 (LDA cleanup utility RA#[id number]); 1715 (LDA cleanup utility RA#[id number]) 06/10/14 0000 by Evie Mendoza 04/30/22 1715 by Ramon Quevedo (RETIRED) Peripheral IV Line - Single Lumen cephalic vein left (lateral side of arm); 20 gauge; 06/10/14; 1247 06/10/14 1133 by 06/10/14 1247 by Darren Rai RN documented in this encounter Social History Tobacco Use Types Packs/Day Years Used Date Smoking Tobacco: Former Sex and Gender Information Value Date Recorded Sex Assigned at Not on file Gender Identity Not on file Sexual Orientation Not on file documented as of this encounter OR Notes * Anesthesia Postprocedure Evaluation - Teri Dsouza MD - 06/10/2014 12:37 PM EDT Patient: Tia Spain Procedure(s) Performed: Procedure(s): EXCISION LESION, BREAST W/ PREOP.MARKER (NEEDLE LOC.) Actual Anesthetic: No value filed. Patient location: PACU Post-op pain: Adequate analgesia Post-op nausea: no nausea or vomiting Last Vitals: Filed Vitals: 06/10/14 1213 BP: 141/78 Pulse: 99 Temp: 36.9 ??C (98.4 ??F) Resp: 20 Post-op cardiovascular and respiratory status: is stable Level of consciousness: awake, alert and oriented Complications: no apparent complications and tolerated the procedure well Fluid Status: normal * Anesthesia Preprocedure Evaluation - Teri Dsouza MD - 06/02/2014 1:48 PM EDT Pre-Anesthesia Evaluation for: Tia Spain a 38 y.o. female. Procedure(s): EXCISION LESION, BREAST W/ PREOP.MARKER (NEEDLE LOC.) There are no active problems to display for this patient. No past medical history on file. No past surgical history on file. History Substance Use Topics ??? Smoking status: Former Smoker ??? Smokeless tobacco: Not on file ??? Alcohol Use: Not on file History Drug Use Not on file Allergies Allergen Reactions ??? Codeine Phosphate CIS - Nausea/Vomiting Medications: MAR and/or home medications have been reviewed. Physical Exam: There were no vitals filed for this visit. There is no height or weight on file to calculate BMI. Airway Assessment: Mallampati: II TM distance: >3 FB Neck ROM: full Cardiovascular Assessment: Rhythm: regular Rate: normal Pulmonary Assessment: breath sounds clear to auscultation Dental Assessment: (+) upper dent[place] and [place] dent[place] [facility] [place]: Anesthesia Plan: ASA 3 MAC, with a(n) intravenous induction 38 yo female with PMH of morbid obesity seen in [facility] prior to excision of R breast lesion to evaluate if appropriate for OSC. Pt denies any problems with anesthesia in the past. Her last surgery was in 2011 at [facility] (neck surgery). Pt has some SOB with stairs, which she believes is due to her weight. She can walk on flat ground without dyspnea. Pt has chronic back and leg pain. She does take oxycodone 5 prn, but not daily, and sometimes less than once a week. Denies loud snoring or other signs of ANGELA. No difficulty with intubation in the past. We will get her [facility] records to confirm this. Anesthesia options, risks, and complications discussed. Will plan on GA with ETT or LMA. Pt can proceed with [place] at the [facility] Janie Ellison PA-C Pre-Admission Testing Pager [phone] Region - Other Informed Consent: Anesthetic plan and risks discussed with patient. Use of blood products discussed with whom consented to blood products. Plan discussed with MANAGER BODY[place] [facility] Assessment: documented in this encounter Plan of Treatment Not on file documented as of this encounter Visit Diagnoses Not on filedocumented in this encounter Administered Medications Inactive Administered Medications - up to 3 most recent administrations Medication Order MAR Action Action Date Dose Rate Site glycopyrrolate (ROBINUL) injection PRN, Starting on Karen 06/10/14 at 1135, Until Karen 06/10/14 at 1228, Anesthesia Intra-op, Routine Given 06/10/2014 11:35 AM EDT 0.1 mg ketamine (KETALAR) 10 mg/mL bolus injection (Anesthesia) PRN, Starting on Karen 06/10/14 at 1126, Until Karen 06/10/14 at 1228, Anesthesia Intra-op Given 06/10/2014 11:42 AM EDT 20 mg Given 06/10/2014 11:34 AM EDT 20 mg Given 06/10/2014 11:31 AM EDT 20 mg lactated ringers infusion 1,000 mL 1,000 mL, at 100 mL/hr, Intravenous, CONTINUOUS, Starting on Karen 06/10/14 at 0715, Until Karen 06/10/14 at 1501, Day of Surgery (Day of Procedure) New Bag 06/10/2014 11:17 AM EDT mL midazolam (PF) (VERSED) 1 mg/mL injection PRN, Starting on Karen 06/10/14 at 1123, Until Karen 06/10/14 at 1228, Sleep, Anesthesia Intra-op, Routine Given 06/10/2014 11:23 AM EDT 2 mg propofol (DIPRIVAN) 10 mg/mL bolus injection (Anesthesia) PRN, Starting on Karen 06/10/14 at 1141, Until Karen 06/10/14 at 1228, Anesthesia Intra-op Given 06/10/2014 12:02 PM EDT 30 mg Given 06/10/2014 11:53 AM EDT 30 mg Given 06/10/2014 11:47 AM EDT 30 mg propofol (DIPRIVAN) infusion CONTINUOUS PRN, Starting on Karen 06/10/14 at 1126, Until Karen 06/10/14 at 1228, Anesthesia Intra-op, Routine Rate/Dose Change 06/10/2014 12:00 PM EDT 50 mcg/kg/min 44.3 mL/hr New Bag 06/10/2014 11:26 AM EDT 100 mcg/kg/min 88.6 mL/ hr documented in this encounter Care Teams Gallery Or Museum Guide Relationship Specialty Start Date End Date Juma Herrera MD [address] [place] [address] PCP - General 05/21/14 documented as of this encounter
--- OUTSIDE RECORDS SUMMARY | 2024-04-22 23:44 | XMS_ITS | Encounter Summary ---
Author Organization [facility] Address [facility] [place] [address] Care Team Providers Care Pile Driving Supervisor Name Role Phone Donna Mohr APRN Primary Care Provider [phone] Encounter Details Date Type Department Care Team (Latest Contact Info) Description 05/18/2014 3:20 PM EDT - 05/18/2014 11:59 PM EDT Hospital Encounter XRay at [address] [place] [phone] CLINIC, DR GAMINO Discharge Disposition: Home Social History Tobacco Use [...] on filedocumented in this encounter Care Teams Pile Driving Supervisor Relationship Specialty Start Date End Date Donna Mohr APRN [address] [place] [address] PCP - General 12/12/11 05/20/14 documented as of this encounter
--- OUTSIDE RECORDS SUMMARY | 2024-04-22 23:44 | XMS_ITS | Encounter Summary ---
Author Organization [facility] Address [facility] [place] [address] Care Team Providers Care Phlebotomy Program Coordinator Name Role Phone Juma Herrera MD Primary Care Provider [phone] Encounter Details Date Type Department Care Team (Latest Contact Info) Description 05/24/2014 8:28 AM EDT - 05/24/2014 11:59 PM EDT Hospital Encounter Mammography at [facility] [place] [phone] Other (abnormal) findings on radiological examination of [...] Name Priority Date/Time Associated Diagnosis Comments MAMMO BREAST US LIMITED Routine 05/24/2014 9:40 AM EDT Other (abnormal) findings on radiological [...] the procedure without a resident. Cell phone: [phone] Narrative 06/08/2014 10:16 AM EDT VACUUM ASSISTED [...] Sclerosing papilloma incompletely excised. ?? Procedure Note Antonella Boston MD - 06/08/2014 VACUUM ASSISTED ULTRASOUND GUIDED BIOPSY OF THE RIGHT BREAST ON 05/27/14: Informed consent was obtained. Using sterile technique and 1% Lidocaineused for local anesthesia, a skin incision was made and a biopsy was performedusing Ultrasound for image guidance. Clinical indication: Right breast 15mm mass/architectural distortion [id number], 9cm from the nipple. 12-gauge Atec US [...] as discussed with the patient andconveyed to [facility]. I performed the procedure without a resident. Cell phone: [phone] Monica Ann MD IMG MAMMO ORDERABLES * Mammo breast US unilateral bilateral (05/24/2014 9:40 AM EDT) Anatomical Region Laterality Modality Breast N/A Mammography 05/24/2014 9:40 AM EDT Narrative 05/27/2014 10:31 [...] (abnormal) findings on radiological examination of breast Other (abnormal) findings on radiological examination of breast documented in this encounter Care Teams Phlebotomy Program Coordinator Relationship Specialty Start Date End Date Juma Herrera MD [address] [place] [address] PCP - General 05/21/14 documented as of this encounter
--- OUTSIDE RECORDS SUMMARY | 2024-04-22 23:44 | XMS_ITS | Encounter Summary ---
Author Organization [facility] Address [facility] [place] [address] Care Team Providers Care Hair Tinter Name Role Phone Donna Mohr APRN Primary Care Provider [phone] Encounter Details Date Type Department Care Team ([facility] st Contact Info) Description 05/18/2014 External Results XRay at [address] [place] [address] Provider, Scanning Social History Tobacco Use Types Packs/Day Years Used Date Smoking Tobacco: Former Sex and Gender Information Value Date Recorded Sex Assigned at Not on file Gender Identity Not on file Sexual Orientation Not on file documented as of this encounter Plan of Treatment Not on file documented as of this encounter Procedures Procedure Name Priority Date/Time Associated Diagnosis Comments MAMMOGRAM SCAN Routine 05/14/2014 documented in this encounter Results * Scan Doc: Mammogram (05/14/2014) Anatomical Region Laterality Modality Other Scanning Provider MEDIA MGR SCAN EXT O RDR/RSLT documented in this encounter Visit Diagnoses Not on filedocumented in this encounter Care Teams Hair Tinter Relationship Specialty Start Date End Date Donna Mohr APRN [address] [place] [address] PCP - General 12/12/11 05/20/14 documented as of this encounter
--- OUTSIDE RECORDS SUMMARY | 2024-04-22 23:44 | XMS_ITS | Encounter Summary ---
Author Organization Counts Include [facility] Address [facility] [place] [address] Care Team Providers Care Customer Manager Name Role Phone Juma Herrera MD Primary Care Provider [phone] Encounter Details Date Type Department Care Team (Late st Contact Info) Description 05/20/2014 Orders [place] [address] Antonella Boston MD [facility] [place] [address] Other (abnormal) findings on radiological examination of breast (Primary Dx) Social History Tobacco Use Types Packs/Day Years Used Date Smoking Tobacco: Former Sex and Gender Information Value Date Recorded Sex Assigned at Not on file Gender Identity Not on file Sexual Orientation Not on file documented as of this encounter Plan of Treatment Not on file documented as of this encounter Visit Diagnoses Diagnosis Other (abnormal) findings on radiological examination of breast- Primary documented in this encounter Care Teams Customer Manager Relationship Specialty Start Date End Date Juma Herrera MD [address] [place] [address] [address] [place] [address] PCP - General 05/21/14 documented as of this encounter
--- OUTSIDE RECORDS SUMMARY | 2024-04-22 23:44 | XMS_ITS | Encounter Summary ---
Author Organization [facility] Address [facility] [place] [address] Care Team Providers Care Bail Agent Name Role Phone Juma Herrera MD Primary Care Provider [phone] Encounter Details Date Type Department Care Team (Latest Contact Info) Description 06/10/2014 6:39 AM EDT - 06/10/2014 12:54 PM EDT Hospital Encounter [place] [phone] Cheng Car MD [facility] [place] [address] Breast lesion Discharge Disposition: Home Social History [...] closest emergency room or call the hospital sheet cutting operator at [phone] and ask for physician convention worker covering for your physician. Questions or problems after 5pm or on a weekend: Call the [facility] sheet cutting operator at and ask for the physician convention worker covering for your doctor. * Patient Instructions* [...] 101.3 F. The number for questions is [phone] before 5 PM weekdays and [phone] after 5 PM and weekends. Pain Medication: [...] Appointment will bemailed to you. Please call [phone] (clinic number for appointments) to confirm date [...] Car MD - 06/10/2014 12:16 PM EDT [facility] Operative Note Patient Name: Tia Spain : [id number] MR#: [id number] Case Date: 06/10/2014 Surgeon: Surgeon(s) and Role: * Cheng Car MD - Primary * Kenrick Diehl MD - Resident-Cable Armorer Preoperative diagnosis: RIGHT BREAST LESION Postoperative diagnosis: [...] (06/10/2014 11:49 AM EDT) Final Diagnosis ? [facility] ? Provider: ?? CHENG CAR ?Pt. Name: ?? CORETTATIA ? Acc #: ?[id number] ?Pt. ? Col Date: ?? 06/10/2014 ? [...] dense area of radial sclerosing lesions ? ([id number]), papillomas, and sclerosing adenosis, forming a conglomerate [...] averaging 0.5 cm in ? thickness. ? [facility] ? Provider: ?? CHENG CAR ?Pt. Name: ?? TIA SPAIN ? Acc #: ?[id number] ?Pt. ? Col Date: ?? 06/10/2014 ? [...] ? SECTIONS/PROCESSI NG: (A1) red margin; (A2) petroleum products sales representative section from ? slice III; (A3) petroleum products sales representative section from slice VII; (A4) petroleum products sales representative ? section from slice V; (A5) site of biopsy clip; (A6-A7) petroleum products sales representative ? sections from slice XI; (A8) petroleum products sales representative section of slice XV. (R8) ? Ischemic Time: N/A minutes ??lloyd ? ---Clinical Information--- ? Specimen Submitted: ? A - Right breast lumpectomy ? Clinical History: ? Right breast lesion ? Clinical Diagnosis: ? Same 06/14/2014 3:40 PM EDT [facility] BREAST STRUCTURE / Unknown 06/10/2014 11:49 AM EDT 06/10/2014 11:49 AM EDT Cheng Car MD PATHOLOGY/CYTOLOGY O RDERABLES Performing Organization Address City/State/[facility] Co de Phone Number [facility] [place] [address] * Specimen to Pathology (surgical or derm) (06/10/2014 11:49 AM EDT) AP Specimen 06/10/2014 11:4 9 AM EDT 06/10/2014 11:49 AM EDT Narrative RAYNA ELLIS - 06/10/2014 11:49 AM EDT Specimen requisition ordered. ??Separate Pathology report to follow Cheng Car MD PATHOLOGY/CYTOLOGY [facility] RAYNA ELLIS documented in this encounter Visit Diagnoses Diagnosis Breast lesion Unspecified breast disorder documented in this encounter Administered Medications Inactive Administered Medications - up to 3 most recent administrations Medication Order MAR Action Action Date Dose Rate Site fentaNYL (PF) 50 mcg/mL 2mL syringe [...] Given 06/10/2014 12:46 PM EDT 1 tablet documented in this encounter Active and Recently [...] injection (CANCELED) ONCE PRN, Starting on Karen 1014 at 1144, Until Karen 1014 at 1501, Intra-Operative (Intra-Procedure), Routine 1144 (Given [...] Pain, for breakthrough pain, Starting on Karen 1014 at 1031, Until Karen 10 at 1501, Hold for respiratory rate less than 10 per minute. Maximum dose: 250 mcg over one hour., PACU Recovery 1034 (Given - Provid er: Ivelisse Bailey RN - Comment: given preop for wire breast pain) HYDROcodone-acetaminophen 5-325 mg per tablet 1-2 tablet 1-2 tablet, Oral, EVERY 6 HOURS PRN, Starting on Karen 1014 at 1215, Until Karen 1014 at 1501, Pain, Maximum dose of acetaminophen is 4000 mg from all sources in 24 hours., Routine 1246 (Given - Provid er: Darren Rai RN) lidocaine (PF) (XYLOCAINE) 10 mg/mL (1 %) injection (CANCELED) ONCE PRN, Starting on Karen 1014 at 1144, Until Karen 1014 at 1501, Intra-Operative (Intra-Procedure), Routine 1144 (Given - Provid er: Cheng Car MD - Comment: 30ml of 0.25% bupivicaine mixed with 30ml of 1% Lidocaine. 10 ml administered pre-op by surgeon.)1200 (Given - Provider: Cheng Car MD - Comment: additional 5mls of 1:1 1% lidocaine/0.5% bupivacaine solution given) documented in this encounter Care Teams Bail Agent Relationship Specialty Start Date End Date Juma Herrera MD [address] [place] [address] [address] [place] [address] PCP - General 05/21/14 documented as of this encounter
--- OUTSIDE RECORDS SUMMARY | 2024-04-22 23:44 | XMS_ITS | Encounter Summary ---
Author Organization [facility] Address [facility] [place] [address] Care Team Providers Care Outside Sales Consultant Name Role Phone Donna Mohr APRN Primary Care Provider [phone] Reason for Visit * Reason Comments Skin Lesion Encounter Details Date Type Department Care Team (Late st Contact Info) Description 01/22/2012 2:30 PM EDT Office Visit Dermatology [facility] [place] [address] Ronda Hernandez PA [facility] [place] [address] Dermal nevus (Primary Dx) Discharge Disposition: Home Social History Tobacco Use Types Packs/Day Years Used Date Smoking Tobacco: Former Sex and Gender Information Value Date Recorded Sex Assigned at Not on file Gender Identity Not on file Sexual Orientation Not on file documented as of this encounter Progress Notes * Marques Black MD - 01/22/2012 4:04 PM EDT Provider MARQUES BLACK MD I saw and evaluated the patient. I have reviewed the patient's history during the visit and I agreewith details as written. My physical examination confirms MARGARITA Masters findings. The assessment and plan were formulated in discussion with me at the time of visit and I agree with them as documented. MARQUES BLACK MD, M.D. Section of Dermatology * Donna Romero LPN - 01/22/2012 2:33 PM EDT DERMATOLOGY NEW PATIENT CLINIC NOTE Date of service: 01/22/2012 Tia Hitchcock : 1975 Provider: Ronda Hernandez PA-C Chief Complaint Patient presents with ??? Skin Lesion HPI Tia Hitchcock is a 36 y.o. year old female. New patient; self-referred by Dr. Donna Mohr for evaluation of a nevus on her right evangelical that has been bothering her with symptoms of pain, redness,swelling and drainage over the last 2-3 months. [...] 1.0..4 cm flesh colored papule located on-right evangelical. No deep cystic component appreciated on physical examination. She has some evidence of irritation with scaling over the superior aspect of the nevus. ASSESSMENT/PLAN: 1.Dermal nevus right evangelical, possible cystic component Procedure: Skin biopsy. Location:right evangelical Discussed indications for procedure and expectations including risks and benefits. Verbal consent obtained. Skin prep with alcohol. Local anesthesia with 1% xylocaine, 1/100,000 epinephrine, 0.1 mEq/mL bicarbonate. A sample of the lesion was removed by shave technique to the level of the dermis andsubmitted to Pathology. Hemostasis obtained (AlCl and/or electrocautery). [...] changes: Ronda Hernandez PA-C Section of Dermatology [facility] documented in this encounter Plan of Treatment Scheduled Orders Name Type Priority Associated Diagnoses Orde r Schedule Skin Biopsy Dermatology Routine Dermal nevus Ordered: 01/22/2012 documented as of this encounter Procedures Procedure Name Priority Date/Time Associated Diagnosis Comments SURGICAL PATHOLOGY REPORT Routine 01/22/2012 3:28 PM EDT SPECIMEN TO PATHOLOGY Routine 01/22/2012 3:02 PM EDT Dermal nevus documented in this encounter Results * SURGICAL PATHOLOGY REPORT (01/22/2012 3:28 PM EDT) Surgical Pathology Report ? [facility] ? Provider: ?? RONDA HERNANDEZ ?Pt. Name: ?? TIA HITCHCOCK ? Acc #: ?[id number] ? Pt. ? Col Date: ?? 01/22/2012 ? /Sex: ?1975,(36 ? years),Female ? Rec Date: ?? 01/22/2012 ? LOC: ?4M ? SURGICAL PATHOLOGY ? ---Pathologic Diagnosis--- ? Skin, right evangelical, shave removal: ?1. Dermal nevus. ?2. Superficial aspect of epithelial cyst wall, (see Comment). ? Dictated by: ??Diana Woodward, DO ? Dermatopathology Fellow ? As the attending physician, I attest that I examined the histologic slides, ? and confirm Dr. Diana Woodward's diagnosis. ? CR-0 ? 01/23/12 ? AJE ? 01/23/12 Verified by: ? Luis Manuel Hussein MD. ? Dermatopathologist ? (Electronic Signature) ? The attending pathologist whose signature appears on this report has ? reviewed all diagnostic slides and has edited the gross and/or ? microscopic portion of the report in rendering the final pathologic ? diagnosis. ? ---Comment--- ? This may represent the superficial portion of a small epidermal inclusion ? cyst. ??Clinicopathologic correlation is recommended. ? ---Microscopic Description--- ? Slides reviewed, microscopic description not recorded. ? ---Gross Description--- ? Labeled/Fixative: ? Labeled with the patient's name, formalin. ? Qty/Size/Weight: ?Single shave, 0.5 cm, ko with a 0.4-cm, pink, fleshy ? papule. ? Sections/Processing: ??Bisected. ??(T1) aje/SNS ? ---Clinical Information--- ? Specimen Submitted: ? A - Right evangelical, shave removal ? Clinical History/Diagnosis: ? [facility] ? Provider: ?? RONDA HERNANDEZ ?Pt. Name: ?? TIA HITCHCOCK ? Acc #: ?[id number] ? Pt. ? Col Date: ?? 01/22/2012 ? /Sex: ?1975,(36 ? years),Female ? Rec Date: ?? 01/22/2012 ? LOC: ?4M ? 0.4-cm, flesh-colored papule / dermal nevus ? cystic component [facility] 01/22/2012 3:28 PM EDT Ronda AVILA PATHOLOGY/CYTOLOGY O RDERABLES [facility] * Specimen to Pathology (surgical or derm) (01/22/2012 3:02 PM EDT) AP Specimen 01/22/2012 3:02 PM EDT 01/22/2012 3:02 PM EDT Narrative RAYNA ELLIS - 01/22/2012 3:02 PM EDT Specimen requisition ordered. ??Separate Pathology report to follow Marques Black MD PATHOLOGY/CYTOL OGY ORDERABLES RAYNA ELLIS documented in this encounter Visit Diagnoses Diagnosis Dermal nevus- Primary Benign neoplasm of skin, site unspecified documented in this encounter Care Teams Outside Sales Consultant Relationship Specialty Start Date End Date Donna Mohr, CLINIC CMA [address] [place] [address] PCP - General 12/12/11 05/20/14 documented as of this encounter
--- OUTSIDE RECORDS SUMMARY | 2024-04-22 23:44 | XMS_ITS | Encounter Summary ---
Author Organization [facility] Address [facility] [place] [address] Care Team Providers Care Boarding House Cook Name Role Phone Juma Herrera MD Primary Care Provider [phone] Reason for Visit * Reason Comments Breast Mass Encounter Details Date Type Department Care Team (Late st Contact Info) Description 06/02/2014 9:30 AM EDT Office Visit Hematology [place] [phone] Cheng Barber MD [facility] [place] [address] Abnormal mammogram (Primary Dx) Discharge Disposition: Home Social History [...] 36.3 ??C (97.3 ??F) 06/02/2014 9:38 AM ED T Respiratory Rate 20 06/02/2014 9:38 AM EDT Oxygen Saturation 100% 06/02/2014 9:38 AM EDT Inhaled Oxygen Concentration - - Weight 147.7 kg (325 lb 9.9 oz) 06/02/2014 9:38 AM EDT Height 169 cm (5' 6.54) 06/02/2014 9:38 AM EDT Body Mass Index 51.71 06/02/2014 9:38 AM EDT documented in this encounter Progress Notes * Cheng Barber MD - 06/02/2014 9:55 AM [...] at this visit. 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 When she asked about this I told [...] of this encounter Visit Diagnoses Diagnosis Abnormal mammogram- Primary Abnormal mammogram, unspecified documented in this encounter Care Teams Boarding House Cook Relationship Specialty Start Date End Date Juma Herrera MD [address] [place] [address] PCP - General 05/21/14 documented as of this encounter
--- OUTSIDE RECORDS SUMMARY | 2024-04-22 23:44 | XMS_ITS | Encounter Summary ---
Author Organization [facility] Address [facility] [place] [address] Care Team Providers Care Assistant Product Manager Name Role Phone Juma Herrera MD Primary Care Provider [phone] Encounter Details Date Type Department Care Team (Latest Contact Info) Description 05/27/2014 10:39 AM EDT - 05/27/2014 11:59 PM EDT Hospital Encounter Mammography at [facility] [place] [phone] CLINIC, Dariela Romero MD [address] [place], [place] [id number] Other (abnormal) findings on radiological examination of [...] Name Priority Date/Time Associated Diagnosis Comments MAMMO US VACUUM ASSISTED BIOPSY Routine 05/27/2014 11:44 AM EDT SPECIMEN TO PATHOLOGY Routine 05/27/2014 11:21 AM EDT documented in this encounter Results * Mammo- US vacuum assisted biopsy (05/27/2014 11:44 AM EDT) Anatomical Region Laterality Modality Breast N/A Mammography 05/27/2014 11:4 4 AM EDT Impressions 05/29/2014 7:50 AM EDT Impression: Concordant result Recommendation: Surgical excision as discussed with the patient and conveyed to CBP. I performed the procedure without a resident. Cell phone: [phone] Narrative 05/29/2014 7:50 AM EDT VACUUM ASSISTED [...] Clinical indication: Right breast 15mm mass/architectural distortion [id number], 9cm from the nipple. 12-gauge Atec US [...] the procedure without a resident. Cell phone: [phone] Dariela Stiles MD IMG MAMMO ORDERABLES * Specimen to Pathology (surgical or derm) (05/27/2014 11:21 AM EDT) AP Specimen 05/27/2014 11:2 1 AM EDT 05/27/2014 11:21 AM EDT Narrative RAYNA ELLIS - 05/27/2014 11:21 AM EDT Specimen requisition ordered. ??Separate Pathology report to follow Antonella Boston MD PATHOLOGY/CYTOLOGY O RDERABLES RAYNA ELLIS documented in this encounter Visit Diagnoses Diagnosis Other (abnormal) findings on radiological examination of breast documented in this encounter Administered Medications Inactive Administered Medications - up to 3 most recent administrations Medication Order MAR Action Action Date Dose Rate Site lidocaine (XYLOCAINE) 10 mg/mL (1 %) injection 10 mg 10 mg, Intradermal, ONCE, 1 dose, On Karen 05/27/14 at 1145, Routine Given 05/27/2014 11:45 AM EDT 10 mg lidocaine-EPINEPHrine 1 %-1:100,000 injection 20 mL 20 mL, Intradermal, ONCE, 1 dose, On Karen 05/27/14 at 1145, Routine Given 05/27/2014 11:45 AM EDT 20 mLs documented in this encounter Care Teams Assistant Product Manager Relationship Specialty Start Date End Date Juma Herrera MD [address] [place] [address] PCP - General 05/21/14 documented as of this encounter
--- OUTSIDE RECORDS SUMMARY | 2024-04-22 23:44 | XMS_ITS | Encounter Summary ---
Author Organization Counts Include [facility] Address [facility] [place] [address] Care Team Providers Care Marketing Support Manager Name Role Phone Juma Herrera MD Primary Care Provider Encounter Details Date Type Department Care Team (Late st Contact Info) Description 05/20/2014 [place] [address] Antonella Boston MD [facility] [place] [address] Other (abnormal) findings on radiological examination of [...] as of this encounter Results * Mammo breast US unilateral bilateral (05/24/2014 [...] and immediately adjacent cysts. Antonella Boston MD [facility] [place]ABLES * Mammo direct digital unilateral (05/24/2014 9:09 [...] findings on radiological examination of breast- Primary Other (abnormal) findings on radiological examination of breast Other (abnormal) findings on radiological examination of breast documented in this encounter Care Teams Marketing Support Manager Relationship Specialty Start Date End Date Juma Herrera MD [address] [place] [address] PCP - General 05/21/14 documented as of this encounter
--- OUTSIDE RECORDS SUMMARY | 2024-04-22 23:44 | XMS_ITS | Encounter Summary ---
Author Organization [facility] Address [facility] [place] [address] Care Team Providers Care Database Marketing Analyst Name Role Phone Juma Herrera MD Primary Care Provider [phone] Encounter Details Date Type Department Care Team (Latest Contact Info) Description 11/30/2016 - 11/30/2016 11:59 PM EDT Hospital Encounter [place] [phone] French Graff MD [facility] DR DIAGNOSTIC [place] [address] Pain Discharge Disposition: Home Social History Tobacco [...] FILM LIBRARY STORAGE ONLY CT PELVIS Routine 11/30/2016 12:00 AM EDT Pain documented in this encounter Results * Film Library- Storage Only CT Pelvis (11/30/2016 12:00 AM EDT) Narrative [facility] - 11/30/2016 2:31 PM EDT This exam is for storage only and is auto-finalizing. French Graff MD IMG FILM LIBRARY ORD ERABLES [place], [place] documented in this encounter Visit Diagnoses Diagnosis Pain Generalized pain documented in this encounter Care Teams Database Marketing Analyst Relationship Specialty Start Date End Date Juma Herrera MD [address] [place] [address] PCP - General 05/21/14 documented as of this encounter
--- OUTSIDE RECORDS SUMMARY | 2024-04-22 23:45 | XMS_ITS | Encounter Summary ---
Author Organization [facility] Address [address] [place] [address] Care Team Providers Care Appraiser Timber Name Role Phone Juma Herrera MD Unavailable Curtis Burns MD Primary Care Provider [phone] Encounter Details Date Type Department Care Team (Latest Contact Info) Description 09/18/2023 Specialty Pharmacy [facility] [address] [place] [address] Ana Rosa Croft [facility] Clinical Follow-up (2x annually) for Headache, Refill Coordination Outreach for Headache, One-time Clinical Outreach (1 time occurrence) for Headache Social History Tobacco Use Types Packs/Day Years Used Date Smoking Tobacco: Every Day Cigarettes Last attempted to quit: 01/13/2009 Smokeless Tobacco: Never Comments:Vapes nicotine Alcohol Use Standard Drinks/Week Comments Yes 0 (1 standard drink = 0.6 oz pur e alcohol) very rarely Interpersonal Safety Answer Date Record ed Physically Hurt Never 04/04/2020 Verbally Threaten Not on file 04/04/2020 Sex and Gender Information Value Date Recorded Sex Assigned at Not on file Gender Identity Female 10/05/2021 12:31 EST Sexual Orientation Not on file documented as of this encounter Functional Status Functional Status Response Date of Assess ment Are you deaf or do you have serious difficulty h earing? No 09/05/2015 Are you blind or do you have serious difficulty seeing, even when wearing glasses? No 09/05/2015 Do you have serious difficul ty walking or climbing stairs? (5 years old or older) No 09/05/2015 Do you have difficulty dress ing or bathing? (5 years old or older) No 09/05/2015 Because of a physical, menta l, or emotional condition, does this person have difficulty doing errands alone such as visiting a doctor's office or shopping? Yes 09/15/2018 Cognitive Status Response Date of Assess ent Because of a physical, menta l, or emotional condition, does this person have serious difficulty concentrating, remembering, or making decisions? Yes 09/15/2018 documented as of this encounter Plan of Treatment Upcoming Encounters Date Type Department Care Team (Late st Contact Info) Description 04/27/2024 14:30 EDT Telemedicine [facility] Neurology - [address] [place] [address] [place], [place] [address] Kj Gloria MD PhD 1 [facility] [address] [place] [phone] 04/30/2024 9:30 EDT Office Visit [facility] Interventional Pain [address] [place], [place] [phone] Catalino Garrett MD [address] [facility] [address] [place] [address] 09/18/2024 11:00 EST Office Visit [facility] Bariatric Surgery [facility] [address] [place], [place] [phone] Allen Thompson PA-C [address] [place] [address], [facility], [address] [place] [phone] documented as of this encounter Visit Diagnoses Not on filedocumented in this encounter Care Teams Appraiser Timber Relationship Specialty Start Date End Date Curtis Burns MD [address] [place] [address] PCP - General Emergency Medicine 07/06/22 Juma Herrera MD [address] [facility] [place] [address] 12/08/18 documented as of this encounter
--- OUTSIDE RECORDS SUMMARY | 2024-04-22 23:45 | XMS_ITS | Encounter Summary ---
Author Organization [facility] Address [address] [place] [address] Care Team Providers Care Computer Repair Engineer Name Role Phone Juma Herrera MD Unavailable Curtis Burns MD Primary Care Provider [phone] Reason for Visit * Reason Comments Back Pain Right side * Prior Authorization (Routine) - Authorized Specialty Diagnoses / Procedures [facility] To Contact Pain Medicine Diagnoses right L3L4 tfesi Procedures NE NJX AA&/STRD TFRML EPI LUMBAR/SACRAL 1 LEVEL PAIN CLINIC PROCEDURE [facility] [address] [place] [address] Catalino Garrett MD [address] [employer] [address] [place] [phone] Referral ID Status Reason Start Date Expiration Date V isits Requested Visits Authorized [id number] Authorized 07/02/2023 09/30/2023 1 1 Encounter Details Date Type Department Care Team (Latest Contact Info) Description 07/02/2023 11:00 EDT Office Visit [facility] Interventional Pain [address] [place] [address] Catalino Garrett MD [address] [employer] [address] [place] [phone] Lumbar radiculopathy (Primary Dx) Social History Tobacco Use Types [...] Sign Reading Time Taken Comments Blood Pressure 160/74 07/02/2023 1117 EDT Pulse 86 07/02/2023 1117 EDT Temperature 36.7 ??C (98.1 ??F) 07/02/2023 1018 EDT Respiratory Rate 16 07/02/2023 1117 EDT Oxygen Saturation 100% 07/02/2023 1018 EDT Inhaled Oxygen Concentration - - Weight [...] Yes 09/15/2018 Cognitive Status Response Date of Assessm ent Because of a physical, menta l, or emotional condition, does this person have serious difficulty concentrating, remembering, or making decisions? Yes 09/15/2018 documented as of this encounter Patient Instructions * Patient Instructions* Daily, ALEXANDER Kwong - 07/02/2023 11:00 EDT [facility] [address] [phone] Patient Instructions You have had your right lumbar Transforaminal Epidural Steroid Injection. The purpose of this [...] up to 20 minutes at a time. Do not use heat, as this may cause [...] However, it may take up to 10 - 14 days to know whether the injection was helpful. If the block causes numbness/weakness, it should wear off within a few hours. If the area that the needle(s) were inserted becomes hot, red, swollen, or increasingly tender, or if you develop a fever (100.5 or greater) or chills along with these symptoms, please call our office immediately. If you develop increasingly severe back pain, continued numbness or weakness of the legs or changesin your bladder or bowel functions, please call our office immediately. Instructions for follow-up If you have any questions about your block, please call Patient Education Topic: Method: Handout and Verbal Taught to: Patient Barriers: None Outcomes: independent and verbalized understanding Signature: ELENITA GUALLPA RN documented in this encounter Progress Notes * Sandi Alvarez MA - 07/02/2023 1100 EDT [facility] Rooming Note Does patient have a Pickling Drum Operator? yes Is patient NPO? (Solids since [...] have any type of implanted device? no Vaccination: Have you had or are you planning to have a vaccination in the 2 weeks? no Other: no * Catalino Garrett MD - 07/02/2023 1100 EDT Patient Name: Tia Rooney : 1975 Date of Service: 07/02/23 Avionics Installer: MD Gerry Java Solutions Architect: none Procedure: Lumbar transforaminal epidural steroid injections at L3L4 right Interval History: Patient currently denies any progressive weakness, unexplained fever, trauma or unexplained weight loss. Details of the current complaint are thoroughly described in my previous consult notes including pain onset, location, course, workup, therapeutic attempts, and associated functional limitations. The patient reports no recent changes in the character, quality, or distribution of the pain. All previous medical records including current medications, anticoagulation status, any signs of current infection, and new imaging were reviewed. Injection History: 07/02/23: lumbar transforaminal epidural steroid injections at L3L4, right 05/02/2023: cervical epidural steroid injection at??C7-T1 - 90% improvement of symptoms for 2 months, improvement just starting to diminish as of 07/02/23. ?? 01/08/2023: cervical epidural steroid injection at C7T1 (C6C7 planned but achieved access at this level) ?? 05/17/22: cervical epidural steroid injection at C6C7 ?? 02/01/22: cervical epidural steroid injection at C6C7 - 3 months of 80% improvement of Posterior neckpain and R cervicothoracic junction ?? 12/2021: R subacromial inj and R AC inj w/ Dr. Balbuena - 80% improvement in ? 05/17/2021: sacroiliac joint injection bilateral??- 80% improvement x4 weeks, now at 50% improvement?? 04/05/2021: cervical epidural steroid injection at C6C7??- 80% improvement in posterior neck pain andpost arm pain.??But still had anterior shoulder, neck clavicular pain 03/20/2021: intra-articularR knee??joint injection w monovisc - 80% improvement with walking up stairs and improving mobility continued as of 02/01/22 01/12/2021: sacroiliac joint injection bilateral??- not sure [...] recent infections. Physical Exam: Vitals: BP (!) 149/86 (BP Cuff Location: Left arm, BP Patient Position: Sitting, BP Cuff Sizes: Adult, regular) Pulse 83 Temp 36.7 ??C (98.1 ??F) (Tympanic) Resp 16 SpO2 100% General: Patient is alert and oriented, no acute distress Lungs: symmetric chest rise, no evidence of labored breathing Skin: clear, warm, dry and intact and no rashes, bruises or petechiae noted Exam otherwise unchanged from prior Assessment: 1. Lumbar radiculopathy Plan: All risks, benefits, and alternatives were thoroughly explained to the patient who verbally communicated understanding of the management plan. Proceed with transforaminal epidural steroid injection at level documented. Follow up: for repeat cervical CUAUHTEMOC PROCEDURE: The patient gave informed written consent to proceed with this procedure following a detailed discussion of the risks and benefits associated with transforaminal epidural steroid injection in the lumbar spineincluding but not limited to infection, bleeding, headache, intrathecal injection, allergic reaction, further exacerbation of current symptoms, neurological injury, and lack of efficacy. The patient was then placed in the prone position, the skin over the lumbosacral area was marked and prepped with chlorhexadine, and the site was draped with sterile towels. Strict sterile technique was maintained throughout the procedure. A timeout was performed with full staff present to identify the patient, verify the procedure being performed, and review allergies. Flouoroscopy was used to visualize the right L3-L4 neuroforamen. The skin and subcutaneous tissue over this level was anesthetized by infiltration of 1% lidocaine. A 22 guage 5.0 inch spinal needle was inserted under fluoroscopic guidance using coaxial technique. The needle was slowly advanced by po sterolateral approach to the superior aspect of the foramen. Fluoroscopic images in the AP and lateral views were taken to confirm final needle tip position in the distal foramen. No parasthesias occurred during needle insertion and aspiration was negative. Contrast dye was injected under live fluoroscopy and revealed good spread along the Rt L3 nerve root with no evidence of intravascular or intrathecal uptake. After negative aspiration, 10 mg Dexamethasone and 0.5 ml 0.25% Bupivacaine was injected. The needle was then flushed and withdrawn. The patient tolerated the procedure well, there were no apparent complications. Discharged in stable condition. Written and verbal discharge instructions were reviewed with the patient prior to discharge. Fluoroscopic spot images were saved during the procedure. MD Gerry * Daily, ALEXANDER Kwong - 07/02/2023 1100 EDT ATTENTION: An active Time-Out initiated by the Provider requires that all members of the proceduralsupport team are present and must stop activity until the Time-Out is completed. The Nurse will have in their possession the signed consent to compare to the verbal verification ofthe items below: [Verified] Patient identifier #1: Full Name [Verified] Patient Identifier #2: Date of [Verified] No allergy to sterile prep products, steroids, local anesthetics, band-aids, or contrastdye [Verified] Full team and patient verification of [...] Contact Info) Description 04/27/2024 14:30 EDT Telemedicine [facility] Neurology - [address] [address] Kj Gloria MD PhD [address] [place] [address] [address] [place] [phone] 04/30/2024 9:30 EDT Office Visit [facility] Interventional Pain [address] [place], [place] [phone] Catalino Garrett MD [address] [facility] [address] [place] [address] 09/18/2024 11:00 EST Office Visit [facility] Bariatric Surgery [address] [phone] Allen Thompson PA-C [address] [facility], [address] [place] [phone] documented as of this encounter Visit Diagnoses Diagnosis Lumbar radiculopathy- Primary Thoracic or lumbosacral neuritis or radiculitis, unspecified documented in this encounter Administered Medications Inactive Administered Medications - up to 3 most recent administrations Medication Order MAR Action Action Date Dose Rate Site BUPivacaine (PF) (MARCAINE) 0.25 % (2.5 mg/mL) injection 1 mL 1 mL, neural-axial, NOW X1, 1 dose, On 07/02/23 at 1130, Routine Given by Other 07/02/2023 11:14 EDT 1 mL dexAMETHasone (DECADRON) injection 10 mg 10 mg, neural-axial, NOW X1, 1 dose, On Sat07/02/23 at 1130, Routine Given by Other 07/02/2023 11:14 EDT 10 mg documented in this encounter Care Teams Computer Repair Engineer Relationship Specialty Start Date End Date Curtis Burns MD [address] [facility] [address] [place] [address] PCP - General Emergency Medicine 07/06/22 uJma Herrera MD [address] [facility] [place] [phone] 12/08/18 documented as of this encounter
--- OUTSIDE RECORDS SUMMARY | 2024-04-22 23:45 | XMS_ITS | Encounter Summary ---
Author Organization [facility] Address [address] [place] [address] Care Team Providers Care Inward Toll Operator Name Role Phone Juma Herrera MD Unavailable Curtis Burns MD Primary Care Provider [phone] Encounter Details Date Type Department Care Team (Late st Contact Info) Description 06/06/2023 Specialty Pharmacy [facility] - [address] [phone] Ana Rosa Croft, [facility] Social History Tobacco Use Types Packs/Day Years [...] Contact Info) Description 04/27/2024 14:30 EDT Telemedicine [facility] - [facility] [address] [place], [place] [address] Kj Gloria MD PhD 1 [facility] [address] [place] [phone] 04/30/2024 9:30 EDT Office Visit [facility] Interventional Pain [address] [place] [address] Catalino Garrett MD [address] [facility] [address] [place] [address] 09/18/2024 11:00 EST Office Visit [facility] Bariatric [facility] [address] [place], [place] [phone] Allen Thompson PA-C [address] [facility], [address] [place] [phone] documented as of this encounter Visit Diagnoses Not on filedocumented in this encounter Care Teams Inward Toll Operator Relationship Specialty Start Date End Date Curtis Burns MD [address] [place] [address] PCP - General Emergency Medicine 07/06/22 Juma Herrera MD [address] [facility] [place] [address] 12/08/18 documented as of this encounter
--- OUTSIDE RECORDS SUMMARY | 2024-04-22 23:45 | XMS_ITS | Encounter Summary ---
Author Organization [facility] Address [address] [place] [address] Care Team Providers Care Bar Attendant Name Role Phone Juma Herrera MD Unavailable Curtis Burns MD Primary Care Provider [phone] Reason for Visit * Reason Comments Obesity Post op sleeve 8 yea rs Encounter Details Date Type Department Care Team (Late st Contact Info) Description 09/20/2023 11:00 EST Office Visit [facility] Bariatric Surgery [facility] [address] [place] [address] Allen Thompson, PA-C [address] [place] [address], [facility], [address] [place] [address] Morbid obesity (HCC-CMS) (Primary Dx); S/P laparoscopic sleeve gastrectomy; BMI 32.0-32.9,adult Social History Tobacco Use Types Packs/Day Years Used Date Smoking Tobacco: Every Day Cigarettes Last attempted to quit: 01/13/2009 Smokeless Tobacco: Never Tobacco Cessation:Ready to Q uit: Not Asked; Counseling Given: Not Answered Comments:Vapes nicotine Alcohol Use Standard Drinks/Week Comments [...] - Inhaled Oxygen Concentration - - Weight 95.7 kg (211 lb) 09/20/2023 1047 EST Height 172.7 cm (5' 7.99) 09/20/2023 1047 EST Body Mass Index 32.09 09/20/2023 1047 EST documented in this encounter Functional Status [...] Yes 09/15/2018 documented as of this encounter Ordered Prescriptions Prescription Sig Dispensed Refills Start Date End Da te omeprazole (PRILOSEC) 40 mg capsule Take 1 Capsule by mouth daily. 90 Capsule 3 09/20/2023 documented in this encounter Progress Notes * Allen Thompson PA-C - 09/20/2023 1100 EST 09/20/2023 Tiapoppy Rooney is here in follow-up to her laparoscopic sleeve gastrectomy 8 years ago. The weight trend for the patient is: Weight at initial consult: 147.7 kg (325 lb 9.6 oz), to 96.5 kg (212 lb 12.8 oz) [] at the last post-op visit to today's Weight : 95.7 kg (211 lb). PROBLEM LIST Patient Active Problem List Diagnosis Lumbar radiculopathy Os trigonum syndrome Tarsal tunnel syndrome of right side Idiopathic peripheral neuropathy Cervicalgia Morbid obesity with BMI of 45.0-49.9, adult ([facility]) Chronic migraine without aura without status migrainosus, not intractable SUBJECTIVE: Emesis: occasional complaints of emesis if she eats too fast Nausea: No complaints of nausea Increased Volume Tolerance: no Abdominal Pain: No complaints of abdominal pain Lightheadedness: Orthostasis sometimes Bowel Function: Constipated occasionally Pannus: Rash that happens under folds and in axilla, sounds like hidradenitis from the description of boils OBJECTIVE: General Appearance: healthy appearing, alert, and in no apparent distress Abdomen: Incisions well-healed Extremities: Normal Skin: some scars under pannus consistent with hidradenitis ASSESSMENT: Doing well, Expected course without obvious complications, and Weight Loss: good (115 pounds / 63% EBW loss, stable for several years). Gets GERD if she does not take 40mg omeprazole daily, will renew prescription. It is OK for her to take meloxicam as she did in the past as she has had no issues with GI upset, bleeding. PCP did labs and her vit d was low so she doubled her supplement to 4000 units per day. PLAN: 1. Return to clinic in 1 year(s). 2. No orders of the defined types were placed in this encounter. 3. Labs followed by her PCP Seen and discussed with Sonographer at this visit. Time spent: 27 minutes total; 17 minutes with the patient and 10 minutes for documentation and coordination of care. Allen Thompson PA-C 09/20/2023 10:51 * Lux Dumont, THOMAS - 09/20/2023 1100 EST Nutrition Post Op Visit: Gastric Sleeve Subjective: Patient returns to clinic for post op nutritional counseling following bariatric surgery ~8 years ago.My body feels like I am heavier. My pain has been worse in the last couple months. Jose not working as I am raising 4 children(9,5,4 and 2 years of age). I am exhausted. I see my primary care next week. I forget to eat a lot of times. I snack on apples or oranges and cheese. I do nothave time to sit down and eat my day time meals. I stopped drinking protein drinks last year. I started drinking them 3-4 months ago. I wanted to maintain at 180 lbs. I got down to 167 lbs and gainedsome. Questionnaire Reviewed: Yes Intolerance Episodes: no Food Intolerances: None Current Physical Activity: No planned exercise, active at home with her adopted grand children Objective: Current Weight: Wt Readings from Last 1 Encounters: 09/20/23 95.7 kg (211 lb) Current BMI: Body mass index is Body mass index is 32.09 kg/m??.. Total Weight Loss: Total Loss in lbs (Weight from Initial Consult - Today's Weight): (!) 114.6 lbs Weight Change since Last Visit:-1.8 lbs and lost 67.8 lbs since surgery Supplement Usage: Type Amount MVT X1 Calcium w/Vit D X1 Vit D 25 mcg X2 Other: Recent Labs: Assessment: Adequate Meal Frequency: Yes Adequate Meal Composition: Yes Physical Activity Adequacy: Yes Hydration/Caffeine:32-64 oz or more water a day; 16 oz of coffee; Sugar sweetened Gingerale 1.5 canmixed with cranberry juice Alcohol Intake:Yes, 1-2 drinks once a month Sleep:Poor at baseline Stress/Anxiety/Depression:High stress; has a Psychiatrist and a therapist and a lot of support Nutritional Issues: Tia was eating toast with butter or peanut butter for breakfast and recentlystarted using Premier protein powder mixed with milk,water or coffee. She eats sandwiches or frozenpizza or salad with lettuce/cucumbers/sunflower seeds and Mozzarella cheese. She eats half cup of po tatoes, half to 3/4 cup veggies and 5 oz of chicken at dinner. She eats slowly some times. She has a new fracture in her back and got Cortisone shots to her back and shoulder. Plan: Continue current diet and exercise; eat slowly and have protein foods for breakfast and lunch meal Supplement Changes:Continue current MVM Initiate food logs Education Provided: Weight Control :Maintain wt or lose 10 lbs in the next year Other:[facility] for Anti-inflammatory diet foods documented in this encounter Plan of Treatment Upcoming Encounters Date Type Department Care Team (Late st Contact Info) Description 04/27/2024 14:30 EDT Telemedicine [facility] Neurology - [address] [place] [address] [place], [place] [id number] Kj Gloria MD PhD 1 [facility], [address] [place] [phone] 04/30/2024 9:30 EDT Office Visit [facility] Interventional Pain [address] [facility] [place], [place] [phone] Catalino Garrett MD [address] [place] [address] 09/18/2024 11:00 EST Office Visit [facility] Bariatric Surgery - [place] [address] [place], [place] [address] Allen Thompson, PA-C [address] [facility], [address] [place] [phone] documented as of this encounter Visit Diagnoses Diagnosis Morbid obesity ([facility])- Primary Morbid obesity S/P laparoscopic sleeve gastrectomy Bariatric surgery status BMI 32.0-32.9,adult Body Mass Index 32.0-32.9, adult documented in this encounter Discontinued Medications Medication Sig Discontinue Reason Start Date End Da te omeprazole (PRILOSEC) 40 mg capsule Take 1 Capsule by mouth daily. Reorder 09/21/2022 09/20/2023 documented as of this encounter Care Teams Bar Attendant Relationship Specialty Start Date End Date Curtis Burns MD [address] [place] [address] PCP - General Emergency Medicine 07/06/22 Juma Herrera MD [address] [facility] [place] [phone] 12/08/18 documented as of this encounter
--- OUTSIDE RECORDS SUMMARY | 2024-04-22 23:45 | XMS_ITS | Encounter Summary ---
Author Organization [facility] Address [address] [place] [address] Care Team Providers Care Fire Safety Manager Name Role Phone Juma Herrera MD Unavailable Curtis Burns MD Primary Care Provider [phone] Reason for Visit * Reason Onset Date Comments Results 04/10/2024 Encounter Details Date Type Department Care Team (Late st Contact Info) Description 04/10/2024 Telephone [facility] Interventional Pain [address] [place] [address] Shantelle Gautam RN Results Social History Tobacco Use Types Packs/Day Years [...] Yes 09/15/2018 documented as of this encounter Miscellaneous Notes * Telephone Encounter - Shantelle Gautam RN - 04/10/2024 0827 EDT ----- Message from Nurse Rajan sent at 04/09/2024 14:12 EDT ----- Regardin hr dx phone call Diagnostic facet L3L4/L4L5 bilat Garrett 04/09/24 Injection History: 04/09/24: diagnostic lumbar facet procedure at L3-L4, L4-L5 03/11/24: diagnostic lumbar facet procedure at L3-L4, L4-L5-70% relief for 5 hours 02/07/24: C7-T1 CUAUHTEMOC 11/19/2023: sacroiliac joint injection bilateral 10/08/2023: C7-T1 CUAUHTEMOC - on going 80% improvement of neck, shoulder and arm pain as of 11/19/23 Refer to chart for more injection history. 04/10/2024: RN left a message for the pt to return call. 04/13/2024: RN left a message for the pt to return call. 04/15/2024: RN left a message for the pt to return call. 04/17/2024: RN spoke with the pt and obtained diagnostic results as below: Follow up call - diagnostic injection Injection date and procedure: 04/09/24: diagnostic lumbar facet procedure at L3- L4, L4-L5 Location of pain/symptoms that the patient is calling about: back bilateral Initial pain score: 6/10 1 hour post procedure pain score: 2/10 Current pain level: 6 (scale 0-10: 0 is no pain, 10 is worst pain ever) How many hours of relief from pain/symptoms on the day of the injection? more than 10 hours Was there significant functional relief or functional improvement? Yes-80% (yes = 80% or greater relief) Which daily activities was the patient able to do better? walking, standing , and doing dishes ,leaning forward,sleeping Patient additional feedback: Pt states she noted significant improvement in physical functioning with more flexibility, increased ROM and a decrease in pain and improvement in ADL's. Next step/appt per MD plan: RFA is scheduled. documented in this encounter Plan of Treatment Upcoming Encounters Date Type Department Care Team (Late st Contact Info) Description 04/27/2024 14:30 EDT Telemedicine [facility] Neurology - [address] [place] [address] [place], [place] [id number] Kj Gloria MD PhD 1 [facility] [address] [place] [phone] 04/30/2024 9:30 EDT Office Visit [facility] Interventional Pain [address] [place] [address] Catalino Garrett MD [address] [facility] [address] [place] [address] 09/18/2024 11:00 EST Office Visit [facility] Bariatric Surgery [facility] [address] [place], [place] [phone] Allen Thompson PA-C [address] [place] [address], [address] [place] [phone] documented as of this encounter Visit Diagnoses Not on filedocumented in this encounter Care Teams Fire Safety Manager Relationship Specialty Start Date End Date Curtis Burns MD [address] [facility] [address] [place] [address] PCP - General Emergency Medicine 07/06/22 Juma Herrera MD [address] [facility] [place] [address] 12/08/18 documented as of this encounter
--- OUTSIDE RECORDS SUMMARY | 2024-04-22 23:45 | XMS_ITS | Encounter Summary ---
Author Organization [facility] Address [address] [place] [address] Care Team Providers Care Auditor Medical Claims Name Role Phone Juma Herrera MD Unavailable Curtis Burns MD Primary Care Provider [phone] Reason for Visit * Reason Comments Follow-up Telemedicine Video Visit Encounter Details Date Type Department Care Team (Late st Contact Info) Description 11/04/2023 14:00 EST Telemedicine [facility] Neurology - [address] [place] [address] [place] [id number] Kj Gloria MD PhD 1 [facility] 2 [place] [address] Chronic migraine without aura without status migrainosus, not intractable (Primary Dx) Social History Tobacco Use Types [...] Yes 09/15/2018 documented as of this encounter Progress Notes * Kj Gloria MD PhD - 11/04/2023 1400 EST Neurology Consult Follow Up Note Date of Service: 11/04/2023 PCP: Curtis Burns Follow up for: migraine Chief Complaint Patient presents with Follow-up Telemedicine Video Visit The concept of ???Telemedicine?? has been described to the patient.? Patient has been informed of the anticipated benefits and possible risks.? Patient understands the information provided regardingtelemedicine, has had the opportunity to ask questions about this information, and all questions have been answered to patient???s satisfaction. 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 She was last seen in follow-up via Zoom on 07/15/23. At that time, she reported ~ 3 to 4 significant headache days per month, with an increase in stress headaches. She was taking Aimovig 140mg Q 28 days (without side effects), duloxetine, pregabalin, and sumatriptan 6mg sc injections PRN (~ 2 to 3 times per month). She also wore FL-41 eyeglasses for photophobiawith good effect. [facility]), she had reported daily headaches, with severe headache ~ 15 days per month. 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 She feels overwhelmed with poor sleep. She says that she has adequate social work and behavioral care. On 10/08/23, she underwent repeat cervical epidural steroid injections at C7-T1 for chronic neck painby Dr Zimmerman at the [facility]. Headaches were currently not terrible. She had a 5-day migraine related to severe family stress issues last month. This migraine attack finally responded to sumatriptan 6mg sc. Otherwise, I've been doing pretty good with them. She says she is under crazy stress. Amovig has been tremendous, Idon't have those severe headaches anymore. Medications and Allergies: Outpatient Medications Marked as Taking for the 11/04/23 encounter (Telemedicine) with Kj Gloria MD PhD Medication Sig Dispense Refill acetaminophen (TYLENOL EX STR RAPID RELEASE ORAL) Take by mouth 3 times daily. ALBUTEROL INHL Inhale as directed 2 times daily. B-complex with vitamin C (VITAMIN B COMPLEX-C ORAL) Take by mouth daily. busPIRone (BUSPAR) 30 mg tablet Take 1 Tablet by mouth 2 times daily. calcium carbonate/vitamin D3 (VITAMIN D-3 ORAL) Take by mouth. cholecalciferol, Vitamin D3, 25 mcg (1,000 unit) tablet Take 4 Tablets by mouth daily. cloNIDine HCL (CATAPRES) 0.1 mg tablet Take 1 Tablet by mouth 2 times daily. cortisone acetate (CORTISONE IM) Inject 1 Dose into the muscle every 3 months. duloxetine (CYMBALTA) 30 mg capsule Take 3 Capsules by mouth daily. Take with 60mg cap to =90mg dose erenumab-aooe (AIMOVIG AUTOINJECTOR) 140 mg/mL auto-injector Inject 1 mL into the skin every 28 days. 3 mL 3 MAGNESIUM ORAL Take 500 mg by mouth daily. MEDICAL MARIJUANA as needed. methylphenidate (RITALIN SR; METADATE ER; METHYLIN ER) 20 mg SR tablet Take by mouth 2 times daily.Takes 20 mg every morning, 20 mg every afternoon, 10 mg every evening. multivitamins (THERAGRAN) Take 5 mL by mouth daily. naproxen sodium (ALEVE ORAL) Take 1 Tablet by mouth 2 times daily. prn nystatin (MYCOSTATIN) powder Apply to affected area twice daily. Clean and thoroughly dry area before application. 30 g 1 omega-3 fatty acids/fish oil (FISH OIL-OMEGA-3 FATTY ACIDS) 300-1,000 mg capsule daily. omeprazole (PRILOSEC) 40 mg capsule Take 1 Capsule by mouth daily. 90 Capsule 3 Allergies Allergen Reactions Adhesive Other (See Comments) Skin irritation, paper tape ok Bee Sting [Hymenoptera Allergenic Extract] Swelling Fever and vomiting Codeine Hives and Nausea And Vomiting Other - See Comments Nausea And Vomiting Root beer Pt says she can sometimes drink it Assessment and Plan: Chronic migraine. Continue current regimen. Keep headache record. Return to clinic 6 months. I spent a total of > 30 minutes on the date of this encounter meeting with the patient and reviewing documentation/coordinating care as described in the above note. Tia was seen today for follow-up and telemedicine video visit. Diagnoses and all orders for this visit: Chronic migraine without aura without status migrainosus, not intractable Kj Gloria MD PhD 11/04/2023 13:56 documented in this encounter Plan of Treatment Upcoming Encounters Date Type Department Care Team (Late st Contact Info) Description 04/27/2024 14:30 EDT Telemedicine [facility] Neurology - [address] [id number] Kj Gloria MD PhD 1 [facility], [address] [place] [phone] 04/30/2024 9:30 EDT Office Visit [facility] Interventional Pain [address] [facility] [place] [address] Catalino Garrett MD [address] [facility] [address] [place] [phone] 09/18/2024 11:00 EST Office Visit [facility] Bariatric Surgery - [place] [address] [place], [place] [address] Allen Thompson PA-C [address] [facility], [address] [place] [phone] documented as of this encounter Visit Diagnoses Diagnosis Chronic migraine without aura without status migrainosus, not intractable- Primary Chronic migraine without aura, without mention of intractable migraine without mention of status migrainosus documented in this encounter Care Teams Auditor Medical Claims Relationship Specialty Start Date End Date Curtis Burns MD [address] [facility] [address] [place] [address] PCP - General Emergency Medicine 07/06/22 Juma Herrera MD [address] [facility] [place] [phone] 12/08/18 documented as of this encounter
--- OUTSIDE RECORDS SUMMARY | 2024-04-22 23:45 | XMS_ITS | Clinical Summary ---
Author Organization [facility] Address [address] [place] [address] Care Team Providers Care Animal Nursery Worker Name Role Phone Juma Herrera MD Unavailable Curtis Burns MD Primary Care Provider Allergies Active Allergy Reactions Criticality Noted Date Comments Adhesive Other (See Comments) 09/29/2012 Skin irritation, paper tape ok Hymenoptera Allergenic Extract Swelling 03/06/2012 Fever and vomiting Codeine Hives,Nausea And Vomiting 12/29/2009 Other - See Comments Nausea And Vomiting 2015 Root beer Pt says she can sometimes drink it Medications Medication Sig Dispensed Refills Start Date End Date Status duloxetine (CYMBALTA) 30 mg capsule Take 3 Capsules by mouth daily. Take with 60mg cap to =90mg dose 05/16/2011 Active methylphenidate (RITALIN SR; METADATE ER; METHYLIN ER) 20 mg SR tablet Take by mouth 2 times daily. Takes 20 mg every morning, 20 mg every afternoon, 10 mg every evening. Active pregabalin (LYRICA) 50 mg capsule Take 2 Caps by mouth 3 times daily. 180 Cap 3 08/21/2012 Active prochlorperazine (COMPAZINE) 10 mg tabletIndications:S/ P laparoscopic sleeve gastrectomy,Gastroes ophageal reflux disease without esophagitis Take 1 Tab by mouth every 6 hours as needed for Nausea 60 Tab 0 08/31/2015 Active methylphenidate (RITALIN;METHYLIN) 5 mg tablet Take 2 Tablets by mouth 2 times daily. Active MEDICAL MARIJUANA as needed. Active cortisone acetate (CORTISONE IM) Inject 1 Dose into the muscle every 3 months. Active MAGNESIUM ORAL Take 500 mg by mouth daily. Active calcium carbonate/vitamin D3 (VITAMIN D-3 ORAL) Take by mouth. Ac tive busPIRone (BUSPAR) 30 mg tablet Take 1 Tablet by mouth 2 times daily. Active cholecalciferol, Vitamin D3, 25 mcg (1,000 unit) tablet Take 4 Tablets by mouth daily. Active SUMAtriptan Succinate 6 mg/0.5 mL cartridge Inject 6 mg into the skin as needed (migraine). Take as directed. 6 mL 11 02/21/2021 Active multivitamins (THERAGRAN) Take 5 mL by mouth daily. Active nystatin (MYCOSTATIN) powder Apply to affected area twice daily. Clean and thoroughly dry area before application. 30 g 1 09/25/2021 Active cloNIDine HCL (CATAPRES) 0.1 mg tablet Take 1 Tablet by mouth 2 times daily. Active omega-3 fatty acids/fish oil (FISH OIL-OMEGA-3 FATTY ACIDS) 300-1,000 mg capsule daily. 10/09/2022 Active acetaminophen (TYLENOL EX STR RAPID RELEASE ORAL) Take by mouth 3 times daily. Active naproxen sodium (ALEVE ORAL) Take 1 Tablet by mouth 2 times daily. prn Active B-complex with vitamin C (VITAMIN B COMPLEX-C ORAL) Take by mouth daily. Active ALBUTEROL INHL Inhale as directed 2 times daily. Active UNABLE TO FIND daily. Med Name: Salon Pas/Lidocaine Patch Active erenumab-aooe (AIMOVIG AUTOINJECTOR) 140 mg/mL auto-injector Inject 1 mL into the skin every 28 days. 3 mL 3 08/02/2023 Active omeprazole (PRILOSEC) 40 mg capsule Take 1 Capsule by mouth daily. 90 Capsule 3 09/20/2023 Active Hospital, Clinic, or Other Facility Administered Medication Ordered Dose Route Frequency Start Date End Date Status BUPivacaine (PF) (MARCAINE) 0.5% injection 1.6 mL 1.6 mL chelsea-neural NOW X1 04/09/2024 04/09/2024 Ended Active Problems Patient Care Coordination No te Formatting of this note migh t be different from the original. PER MEDICAID WEB, ADRIANA TERMED 09/10/19 AND SWITCHED TO [facility] PLAN AID CATEGORY VN WHICH WE DO NOT LOAD. NO OTHER SECONDARY INS PER SHAWN Gonzalez 09/15/2020 7:55 Problem Noted Date Diagnosed Date Chronic migraine without aur a without status migrainosus, not intractable 02/21/2021 Morbid obesity with BMI of 45.0-49.9, adult ([facility]) 03/10/2015 Cervicalgia 09/29/2012 Idiopathic peripheral neuropathy 03/20/2012 Tarsal tunnel syndrome of right side 08/02/2011 Os trigonum syndrome 06/18/2011 Overview: Right Lumbar radiculopathy 10/03/2006 Encounters Date Type Department Care Team Description 04/10/2024 Telephone [facility] Interventional Pain [address] [place] [address] Shantelle Gautam, RN Results 04/09/2024 13:30 EDT Office Visit [facility] Interventional Pain [address] [place] [address] Catalino Garrett MD Spondylosis of 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 myelopathy (Primary Dx) 04/09/2024 7:33 EDT - 04/09/2024 23:59 EDT Hospital Encounter [facility] Xray [address] [place] [address] Discharge Disposition: Home or Self Care 03/12/2024 Telephone [facility] Interventional Pain [address] [place] [address] Shantelle Gautam, RN Results 03/11/2024 13:30 EDT Office Visit [facility] Interventional Pain [address] [place] [address] Catalino Garrett MD Spondylosis of 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 myelopathy (Primary Dx) 03/11/2024 8:08 EDT - 03/11/2024 23:59 EDT Hospital Encounter [facility] Xray [address], [place] [id number] Discharge Disposition: Home or Self Care 02/07/2024 13:00 EDT Office Visit [facility] Interventional Pain [address], [place] [phone] Catalino Garrett MD Radiculopathy, cervical region (Primary Dx) 02/07/2024 8:04 EDT - 02/07/2024 23:59 EDT Hospital Encounter [facility] Xray [address] [place], [place] [phone] Discharge Disposition: Home or Self Care 01/30/2024 11:00 EDT Office Visit [facility] Interventional Pain [address] [place] [address] Catalino Garrett MD Spondylosis of 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 myelopathy (Primary Dx) 01/29/2024 Specialty Pharmacy [facility] [address] [place] [id number] Raymundo Carey [facility] Refill Coordination Outreach for Headache 01/21/2024 Telephone [facility] Neurology - [address] [place] [address] [place], [place] [phone] Kj Gloria MD PhD Appointment Related from Last 3 Months Surgical History Surgery Date Site/Laterality Comments SPINAL FUSION L5-S1 Dr. Child 2007 LAMINECTOMY L5-S1 Dr. Bowers 1999 CHOLECYSTECTOMY TUBAL LIGATION BACK SURGERY Medical History Medical History Date Comments Bipolar disorder ([facility]) PTSD (post-traumatic stress disorder) Personality disorder ([facility]) Plantar fasciitis Drug abuse ([facility]) Arthritis Kidney disease Diabetes mellitus ([facility]) Heart disease Hypertension Nervousness(799.21) Eye problem Breathing problem Back pain Numbness Anxiety Depression Headache(784.0) History of substance abuse ([facility]) Tarsal tunnel syndrome Generalized headaches Mental disorder Environmental allergies Family History Medical History Relation Comments Depression Other Heart Disease Other High Blood Pressure Other Psoriasis Other Thyroid Disease Other Relation Status Comments Other Social History Tobacco Use Types Packs/Day Years [...] 12:31 EST Sexual Orientation Not on file Obstetrics History Last Filed Vital Signs Vital Sign Reading Time Taken Comments Blood Pressure 155/106 04/09/2024 1411 EDT Pulse 88 04/09/2024 1247 EDT Temperature 36.7 ??C (98.1 ??F) 07/02/2023 1018 EDT Respiratory Rate 16 04/09/2024 1411 EDT Oxygen Saturation 95% 04/09/2024 1247 EDT Inhaled Oxygen Concentration - - Weight 95.7 kg (211 lb) 09/20/2023 1047 EST Height 172.7 cm (5' 7.99) 09/20/2023 1047 EST Body Mass Index 32.09 09/20/2023 1047 EST Plan of Treatment Upcoming Encounters Date Type Department Care Team (Late st Contact Info) Description 04/27/2024 14:30 EDT Telemedicine [facility] Neurology - [address] [phone] Kj Gloria MD PhD 1 [facility] 2 [place] [phone] 04/30/2024 9:30 EDT Office Visit [facility] Interventional Pain [address] [place], [place] [phone] Catalino Garrett MD 62 [facility] [address] [place] [address] 09/18/2024 11:00 EST Office Visit [facility] Bariatric Surgery - [place] [address] [place] [address] Allen Thompson PA-C 111 [facility], Level [address] [place] [address] Health Maintenance Due Date Last Done Comments Hepatitis C Screen 1973 Pneumococcal Immunization (1 of 2 - PCV) 1979 Hepatitis B Vaccine (1 of 3 - 19+ 3-dose series) 06/12 COVID-19 Vaccine (2022- season) 2023 Advance Directive Review 01/29/2024 Medical Devices Implanted Type Area Finance Administrator Device Identifier Shelf Expiration Date Model / Serial / Lot Mr Safe Cervical Spinal Fusion Hardware Spinal Implant Description:MR SAFE CERVICAL SPINAL FUSION HARDWARE Mr Safe Lumbar Spinal Fusion Hardware Spinal Implant Description:MR SAFE LUMBAR SPINAL FUSION HARDWARE Mr Cond 1.5 Spf??-Xl Iib Spinal Fusion Stimulator Spinal Implant Description:MR COND 1.5T SpF??-XL IIb Spinal Fusion Stimulator placed 01/14/07 - Plain films (radiographs) must be obtained to assess the site of the implanted SpF prior to the MRI examination to verify that there are no broken leads present. -maximum spatial gradient 450 gauss/cm -max gradient magnetic field of 20 Valentina/second - whole body averaged specific absorption rate (ALMA) of 1.1 W/kg for 25 minutes of imaging [facility] [employer] Procedures Procedure Name Priority Date/Time Associated Diagnosis Comments PAIN CLINIC [place] LUMBAR INJECTION Routine 04/09/2024 14:08 EDT PAIN CLINIC FL LUMBAR INJECTION Routine 03/11/2024 13:41 EDT PAIN CLINIC FL CERVICAL INJECTION Routine 02/07/2024 13:23 EDT from Last 3 Months Results * PAIN CLINIC FL LUMBAR INJECTION (04/09/2024 14:08 EDT) Narrative 04/09/2024 14:09 EDT This is a non-reportable exam. Catalino DEY OTHER IMAGING OR DERABLES * PAIN CLINIC FL LUMBAR INJECTION (03/11/2024 13:41 EDT) Narrative 03/11/2024 13:42 EDT This is a non-reportable exam. Catalino DEY OTHER IMAGING OR DERABLES * PAIN CLINIC FL CERVICAL INJECTION (02/07/2024 13:23 EDT) Narrative 02/07/2024 13:23 EDT This is a non-reportable exam. Catalino Garrett MD IMG OTHER IMAGING OR DERABLES from Last 3 Months Advance Directives For more information, please contact: [phone] Documents on File Type Date Recorded Patient Software Test Developer Expl anation COLST/MOLST 01/28/2019 11:35 Advance Directive 09/05/2015 5:47 [place] signed 2011-05-29 * Full Code (Latest Code Status on File) Date Activated Date Inactivated Comments 09/05/2015 6:25 09/07/2015 14:23 Question Answer Comments Reason for decision includes: Full code consistent with overall plan of care Who participated in the discussion? Not Discusse d Care Teams Animal Nursery Worker Relationship Specialty Start Date End Date Curtis Burns MD 26 [facility] [address] [place] [address] PCP - General Emergency Medicine 07/06/22 Juma Herrera MD [address] [facility] [place] [address] 12/08/18
--- OUTSIDE RECORDS SUMMARY | 2024-04-22 23:45 | XMS_ITS | Encounter Summary ---
Author Organization [facility] Address [address] [place] [address] Care Team Providers Care Limousine Driver Name Role Phone Juma Herrera MD Unavailable Curtis Burns MD Primary Care Provider [phone] Encounter Details Date Type Department Care Team (Latest Contact Info) Description 10/08/2023 7:42 EST - 10/08/2023 23:59 EST Hospital Encounter [facility] Pain Clinic Xray [address] [place], [place] [phone] Discharge Disposition: Home or Self Care Social History Tobacco Use Types Packs/Day Years [...] Yes 09/15/2018 documented as of this encounter Medications at Time of Discharge Medication Sig Dispensed Refills Start Date End Date acetaminophen (TYLENOL EX STR RAPID RELEASE ORAL) [...] with 60mg cap to =90mg dose 05/16/2011 erenumab-aooe (AIMOVIG AUTOINJECTOR) 140 mg/mL auto-injector Inject 1 mL into the skin every 28 days. 3 mL 3 08/02/2023 MAGNESIUM ORAL Take 500 mg by mouth daily. MEDICAL MARIJUANA as needed. methylphenidate (RITALIN SR; METADATE ER; METHYLIN ER) 20 mg SR tablet Take by mouth 2 times daily. Takes 20 mg every morning, 20 mg every afternoon, 10 mg every evening. methylphenidate (RITALIN;METHYLIN) 5 mg tablet Take 2 Tablets by mouth 2 times daily. multivitamins (THERAGRAN) Take 5 mL by mouth daily. naproxen sodium (ALEVE ORAL) Take 1 Tablet by mouth 2 times daily. prn nystatin (MYCOSTATIN) powder Apply to affected area twice daily. Clean and thoroughly dry area before application. 30 g 1 09/25/2021 omega-3 fatty acids/fish oil (FISH OIL-OMEGA-3 FATTY ACIDS) 300-1,000 mg capsule daily. 10/09/2022 omeprazole (PRILOSEC) 40 mg capsule Take 1 Capsule by mouth daily. 90 Capsule 3 09/20/2023 pregabalin (LYRICA) 50 mg capsule Take 2 Caps by mouth 3 times daily. 180 Cap 3 08/21/2012 prochlorperazine (COMPAZINE) 10 mg tabletIndications:S/P laparoscopic sleeve gastrectomy,Gastroesoph ageal reflux disease without esophagitis Take 1 Tab by mouth every 6 hours as needed for Nausea 60 Tab 0 08/31/2015 SUMAtriptan Succinate 6 mg/0.5 mL cartridge Inject 6 mg into the skin as needed (migraine). Take as directed. 6 mL 11 02/21/2021 UNABLE TO FIND daily. Med Name: Salon Pas/Lidocaine Patch documented as of this encounter Discharge Disposition Disposition Code Departure Means Destination Home or Self Care documented in this encounter Plan of Treatment Upcoming Encounters Date Type Department Care Team (Late st Contact Info) Description 04/27/2024 14:30 EDT Telemedicine [facility] Neurology [address] [phone] Kj Gloria MD PhD 1 [facility] 2 [place] [phone] 04/30/2024 9:30 EDT Office Visit [facility] Interventional Pain [address] [place], [place] [phone] Catalino Garrett MD 62 [facility] [address] [place] [address] 09/18/2024 11:00 EST Office Visit [facility] Bariatric Surgery - [place] [address] [place] [address] Allen Thompson PA-C 111 [facility], Level [address] [place] [address] documented as of this encounter Procedures Procedure Name Priority Date/Time Associated Diagnosis Comments PAIN CLINIC FL CERVICAL INJECTION Routine 10/08/2023 11:44 EST documented in this encounter Results * PAIN CLINIC FL CERVICAL INJECTION (10/08/2023 11:44 EST) Narrative 10/08/2023 11:45 EST This is a non-reportable exam. Catalino Garrett MD IMG OTHER IMAGING OR DERABLES documented in this encounter Visit Diagnoses Not on filedocumented in this encounter Care Teams Limousine Driver Relationship Specialty Start Date End Date Curtis Burns MD 26 [facility] [address] [place] [address] PCP - General Emergency Medicine 07/06/22 Juma Herrera MD [address] [facility] [place] [address] 12/08/18 documented as of this encounter
--- OUTSIDE RECORDS SUMMARY | 2024-04-22 23:45 | XMS_ITS | Encounter Summary ---
Author Organization [facility] Address [address] [place] [address] Care Team Providers Care Cement Truck Loader Name Role Phone Juma Herrera MD Unavailable Curtis Burns MD Primary Care Provider [phone] Reason for Visit * Reason Onset Date Comments Appointment Related 11/07/2023 Encounter Details Date Type Department Care Team (Late st Contact Info) Description 11/07/2023 Telephone [facility] Neurology - [place] [address] [place] [phone] Kj Gloria MD PhD 1 [facility] 2 [place] [address] Appointment Related Social History Tobacco Use Types Packs/Day Years [...] encounter Miscellaneous Notes * Telephone Encounter - Brad Casillasah - 11/07/2023 1501 EST LM for Tia to schedule FUR via Novitaz Televideo with Dr. Gloria. Upon callback, please schedule from recall documented in this encounter Plan of Treatment Upcoming Encounters Date Type Department Care Team (Late st Contact Info) Description 04/27/2024 14:30 EDT Telemedicine [facility] Neurology - [facility] 1 [place], [place] [address] Kj Gloria MD PhD 1 [facility] Level [address] [place] [phone] 04/30/2024 9:30 EDT Office Visit [facility] Interventional Pain 62 [facility] [place], [place] [phone] Catalino Garrett MD 62 [facility] [address] [place] [address] 09/18/2024 11:00 EST Office Visit [facility] Bariatric Surgery - [place] [address] [place], [place] [address] Allen Thompson PA-C 111 [facility], [facility], Level [address] [place] [phone] documented as of this encounter Visit Diagnoses Not on filedocumented in this encounter Care Teams Cement Truck Loader Relationship Specialty Start Date End Date Curtis Burns MD 26 [facility] [address] [place] [address] PCP - General Emergency Medicine 07/06/22 Juma Herrera MD [address] [facility] [place] [address] 12/08/18 documented as of this encounter
--- OUTSIDE RECORDS SUMMARY | 2024-04-22 23:45 | XMS_ITS | Encounter Summary ---
Author Organization [facility] Address [address] [place] [address] Care Team Providers Care Land Surveyor Assistant Name Role Phone Juma Herrera MD Unavailable Curtis Burns MD Primary Care Provider [phone] Reason for Visit * Reason Onset Date Comments Prior Auth, Medication 08/08/2023 Encounter Details Date Type Department Care Team (Late st Contact Info) Description 08/08/2023 Telephone [facility] 1 [place], [place] [phone] Kj Gloria MD PhD 1 [facility] 2 [place] [address] Prior Auth, Medication Social History Tobacco Use Types Packs/Day Years [...] encounter Miscellaneous Notes * Telephone Encounter - Angela Nunes - 08/08/2023 1159 EST Prior Authorization Approval Medication: Aimovig Insurance Name:optum Insurance Type: Commercial Approval Dates: approved through 09/01/24 Authorization Number: [id number] Required Pharmacy: No requirement [facility] able to fill?: YES Additional Info/Other Notes: Approval scanned in chart Prior Authorization Submission Process - Routine Re-Auth Medication: Aimovig Insurance: Optum Insurance Type: Commercial Date PA Request Received: 08/08/23 PA Submission Date: 08/08/23 CMM: [id number] Notes: Re auth Submitted by: Angela Ríos Phone: [phone] documented in this encounter Plan of Treatment Upcoming Encounters Date Type Department Care Team (Late st Contact Info) Description 04/27/2024 14:30 EDT Telemedicine [facility] Neurology - [address] [phone] Kj Gloria MD PhD 1 [facility] 2 [place] [phone] 04/30/2024 9:30 EDT Office Visit [facility] - [facility] Interventional Pain 62 [facility] [place], [place] [phone] Catalino Garrett MD 62 [facility] [address] [place] [address] 09/18/2024 11:00 EST Office Visit [facility] Bariatric Surgery - [place] [address] [place] [address] Allen Thompson, PA-C 111 [facility], [address] [place] [phone] documented as of this encounter Visit Diagnoses Not on filedocumented in this encounter Care Teams Land Surveyor Assistant Relationship Specialty Start Date End Date Curtis Burns MD 26 [facility] [address] [place], [place] [address] PCP - General Emergency Medicine 07/06/22 Juma Herrera MD [address] [facility] [place] [phone] 12/08/18 documented as of this encounter
--- OUTSIDE RECORDS SUMMARY | 2024-04-22 23:45 | XMS_ITS | Encounter Summary ---
Author Organization [facility] Address [address] [place] [address] Care Team Providers Care Editor Name Role Phone Juma Herrera MD Unavailable Curtis Burns MD Primary Care Provider [phone] Reason for Visit * Reason Onset Date Comments Results 03/12/2024 Encounter Details Date Type Department Care Team (Late st Contact Info) Description 03/12/2024 Telephone [facility] - [facility] Interventional Pain [address] [place] [address] Shantelle Gautam RN Results Social [...] Telephone Encounter - Shantelle Gautam RN - 03/12/2024 0845 EDT ----- Message from Nurse Freire sent at 03/11/2024 13:37 EDT ----- Regarding: Facet diagnostic L34, L45 bilateral facet diagnostic on 03/11 Dr Garrett Follow up call - diagnostic injection Injection date and procedure: L34, L45 bilateral facet diagnostic on 03/11 Location of pain/symptoms that the patient is calling about: back bilateral Initial pain score: 8/10 1 hour post procedure pain score: 4/10 Current pain level: 7/10 (scale 0-10: 0 is no pain, 10 is worst pain ever) How many hours of relief from pain/symptoms on the day of the injection? 5 Was there significant functional relief or functional improvement? 70% (yes = 80% or greater relief) Which daily activities was the patient able to do better? walking and standing Able to stand at the sink to do dishes Patient additional feedback: Next step/appt per MD plan: Forward to technical repALEXANDER NUNEZ RN documented in this encounter Plan of Treatment Upcoming Encounters Date Type Department Care Team (Late st Contact Info) Description 04/27/2024 14:30 EDT Telemedicine [facility] Neurology - [address] [phone] Kj Gloria MD PhD 1 [facility] 2 [place] [phone] 04/30/2024 9:30 EDT Office Visit [facility] - [facility] Interventional Pain [address] [place], [place] [phone] Catalino Garrett MD 62 [facility] [address] [place] [address] 09/18/2024 11:00 EST Office Visit [facility] Bariatric Surgery - [place] [address] [place], [place] [phone] Allen Thompson PA-C [address] [place] [address], [address] [place] [phone] documented as of this encounter Visit Diagnoses Not on filedocumented in this encounter Care Teams Editor Relationship Specialty Start Date End Date Curtis Burns MD 26 [facility] [address] [place] [address] PCP - General Emergency Medicine 07/06/22 Juma Herrera MD [address] [facility] [place] [address] 12/08/18 documented as of this encounter
--- OUTSIDE RECORDS SUMMARY | 2024-04-22 23:45 | XMS_ITS | Encounter Summary ---
Author Organization [facility] Address [address] [place] [address] Care Team Providers Care Internet Network Specialist Name Role Phone Juma Herrera MD Unavailable Curtis Burns MD Primary Care Provider [phone] Reason for Visit * Reason Comments Neck Pain center * Prior Authorization (Routine) - Authorized Specialty Diagnoses / Procedures [facility] Referred To Contact Pain Medicine Diagnoses Radiculopathy, cervical region YSABEL / pa pending Procedures [place] NJX DX/THER SBST INTRLMNR CRV/THRC W/IMG GDN PAIN CLINIC PROCEDURE [facility] [address] [facility] [place] [address] Catalino Garrett MD [address] [place] [address] [phone] Referral ID Status Reason Start Date Expiration Date V isits Requested Visits Authorized [id number] Authorized 08/30/2023 11/28/2023 1 1 Encounter Details Date Type Department Care Team (Latest Contact Info) Description 10/08/2023 11:15 EST Office Visit [facility] Interventional Pain [address] [facility] [place] [address] Catalino Garrett MD 62 [facility] [address] [place] [phone] Radiculopathy, cervical region (Primary Dx); Sacroiliitis (HCC-CMS) Social History Tobacco Use Types Packs/Day Years [...] Sign Reading Time Taken Comments Blood Pressure 151/83 10/08/2023 1144 EST Asympt omatic Pulse 83 10/08/2023 1144 EST Temperature - - Respiratory Rate 16 10/08/2023 1020 EST Oxygen Saturation - - Inhaled Oxygen [...] this encounter Patient Instructions * Patient Instructions* Bonnie Reyna RN - 10/08/2023 11:15 EST [facility] [address] [address] Patient Instructions You have had [...] office immediately. If you develop increasingly severe neck pain, continued numbness or weakness of the arms, please call our office immediately. Instructions for follow-up If you have any questions about your block, please call Patient Education Topic: Method: Handout and Verbal Taught to: Patient Barriers: None Outcomes: verbalized understanding BONNIE REYNA RN documented in this encounter Progress Notes * Sandi Alvarez MA - 10/08/2023 1115 EST [facility] Rooming Note Does patient have a Wagon Driver? yes Is patient NPO? (Solids since midnight [...] the 2 weeks? no Other: no * Barak Zimmerman MD - 10/08/2023 1115 EST Patient Name: Tia Rooney : 1975 Date of Service: 10/08/23 Chief Complaint: Chief Complaint Patient presents with Neck Pain center Brim Plater: Dr. Garrett Clerk Supervisor: MD Erasmo Procedure: Cervical epidural steroid injections at C7-T1 Interval History: Patient presents today regarding their chronic neck and BUE pain Please refer to Dr Garrett's note on 05/21/23 for full details regarding the patient's pain complaint. Patient currently denies any progressive weakness, unexplained [...] and new imaging were reviewed. Injection History: 10/08/2023: C7-T1 CUAUHTEMOC 07/02/23: lumbar transforaminal epidural steroid injections at L3L4, right 05/02/2023: cervical epidural steroid injection at C7-T1 - 90% improvement of symptoms for 2 months,improvement just starting to diminish as of 07/02/23. 01/08/2023: cervical epidural steroid injection at C7T1 (C6C7 planned but achieved access at this level) 05/17/22: cervical epidural steroid injection at C6C7 02/01/22: cervical epidural steroid injection at C6C7 - 3 months of 80% improvement of Posterior neckpain and R cervicothoracic junction 12/2021: R subacromial inj and R AC inj w/ Dr. Balbuena - 80% improvement in 05/17/2021: sacroiliac joint injection bilateral - 80% improvement x4 weeks, now at 50% improvement 04/05/2021: cervical epidural steroid injection at C6C7 - 80% improvement in posterior neck pain and [...] to 2013 L5-S1 decompression and fusion (2006) Physical Exam: Vitals: BP (!) 144/87 (BP Cuff Location: Right arm, BP Patient Position: Sitting, BP Cuff Sizes: Adult, regular) Resp 16 General: Patient is alert and oriented, no acute distress. Lungs: symmetric chest rise, no evidence of labored breathing Skin: clear, warm, dry and intact and no rashes, bruises or petechiae noted SI: + TTP, + compression and + bilateral FABERs Assessment: 1. Radiculopathy, cervical region 2. Sacroiliitis ([facility]) Plan: Ms. Tia Rooney is a 48 y.o. female that presents to the pain clinic to undergo cervical epidural steroid injection. All risks, benefits, and alternatives were thoroughly explained to Ms. Tia Mazariegos who verbally communicated understanding of the management plan. Followup: having symptoms consistent with bilateral sacroiliitis, positive exam findings, will schedule bilateral SI joint injection 4-6 weeks PROCEDURE: The patient gave informed written consent to proceed with this procedure following a detailed discussion of the risks and benefits associated with cervical epidural steroid injection including but not limited to infection, bleeding, headache, intrathecal injection, allergic reaction, further exacerb ation of current symptoms, neurological injury, and lack of efficacy.. The patient was then placed in the prone position, the skin over the cervical and thoracic areas was prepped with chlorhexadine,and the site was marked and draped with sterile towels. Strict sterile technique was maintained throughout the procedure. A timeout was performed with full staff present to identify the patient, verify the procedure being performed, and review allergies. Fluoroscopy was used to identify the C7-T1 disc space. The skin and subcutaneous tissue over this level was anesthetized by injection of 1% lidocaine. An 18 guage touhy needle was inserted under fluoroscopic guidance by coaxial technique and advanced towards the interspace. Loss of resistance with normal saline was used to find the epidural space. One pass was required and there was no paresthesia. Contrast dye was injected under live biplanar fluoroscopy demonstrating a typical epidural pattern with [...] with the patient prior to discharge. Fluoroscopic images were saved during the procedure Barak Zimmerman MD [facility] Interventional Pain Medicine Fellow (PGY-5) 10/08/23 Attending attestation: I have seen and evaluated the patient with the resident/fellow. I agree withthe findings and plan of care documented in the resident's/fellow's note. In addition, I was present and participating during the entire procedure. Catalino Garrett MD * Bonnie Reyna RN - 10/08/2023 1115 EST ATTENTION: This Checklist should be reviewed with the patient, provider, nurse/MA, and radiology teacher in the room prior to local anesthetic [...] Attending is responsible for leading the final verification/quach moment process. The Nurse/MA will have in her [...] chart [Verified] Consented procedure matches scheduled procedure. documented in this encounter Plan of Treatment Upcoming Encounters Date Type Department Care Team (Late st Contact Info) Description 04/27/2024 14:30 EDT Telemedicine [facility] Neurology - [address] [id number] Kj Gloria MD PhD 1 [facility] 2 [place] [phone] 04/30/2024 9:30 EDT Office Visit [facility] Interventional Pain [address] [facility] [address] Catalino Garrett MD [address] [facility] [address] [place] [address] 09/18/2024 11:00 EST Office Visit [facility] Bariatric Surgery - [place] [address] [place], [place] [address] Allen Thompson PA-C 111 [facility], [address] [place] [phone] documented as of this encounter Visit Diagnoses Diagnosis Radiculopathy, cervical region- Primary Brachial neuritis or radiculitis nos Sacroiliitis (HCC-CMS) Sacroiliitis, not elsewhere classified documented in this encounter Administered Medications Inactive Administered Medications - up to 3 most recent administrations Medication Order MAR Action Action Date Dose Rate Site dexAMETHasone (DECADRON) injection 10 mg 10 mg, neural-axial, NOW X1, 1 dose, On Sat10/08/23 at 1200, Routine Given by Other 10/08/2023 11:40 EST 10 mg Iohexol (OMNIPAQUE 180) injection 2 mL 2 mL, neural-axial, NOW X1, 1 dose, On Sat10/08/23 at 1200, Routine Given by Other 10/08/2023 11:40 EST 2 mL documented in this encounter Care Teams Internet Network Specialist Relationship Specialty Start Date End Date Curtis Burns MD 26 [facility] [address] [place] [address] PCP - General Emergency Medicine 07/06/22 Juma Herrera MD [address] [facility] [phone] 12/08/18 documented as of this encounter
--- OUTSIDE RECORDS SUMMARY | 2024-04-22 23:45 | XMS_ITS | Encounter Summary ---
Author Organization [facility] Address [address] [place] [address] Care Team Providers Care Optical Mechanic Name Role Phone Juma Herrera MD Unavailable Curtis Burns MD Primary Care Provider [phone] Encounter Details Date Type Department Care Team (Latest Contact Info) Description 07/04/2023 Specialty Pharmacy [facility] - [address] [phone] Becki Major [facility] Refill Coordination Outreach for Headache Social History Tobacco Use Types [...] as of this encounter Progress Notes * SmitaEvelynShana - 07/04/2023 1102 EDT Medication Refill Request Medication: Aimovig Patient needs medication by: 08/09 Scheduled outreach date: 08/01 Pharmacy: [facility] ([facility]) 1 [facility] appt: Visit date not found documented in this encounter Plan of Treatment Upcoming Encounters Date Type Department Care Team ([facility] st Contact Info) Description 04/27/2024 14:30 EDT Telemedicine [facility] Neurology - [address] [phone] Kj Gloria MD PhD 1 [facility] [address] [place] [phone] 04/30/2024 9:30 EDT Office Visit [facility] Interventional Pain [address] [place], [place] [phone] Catalino Garrett MD 62 [facility] [address] [place] [address] 09/18/2024 11:00 EST Office Visit [facility] Bariatric Surgery - [place] [address] [place], [place] [phone] Allen Thompson, PA-C 111 [facility], [address] [place] [address] documented as of this encounter Visit Diagnoses Not on filedocumented in this encounter Care Teams Optical Mechanic Relationship Specialty Start Date End Date Curtis Burns MD 26 [facility] [address] [place] [address] PCP - General Emergency Medicine 07/06/22 Juma Herrera MD [address] [facility] [place] [phone] 12/08/18 documented as of this encounter
--- OUTSIDE RECORDS SUMMARY | 2024-04-22 23:45 | XMS_ITS | Encounter Summary ---
Author Organization [facility] Address [address] [place] [address] Care Team Providers Care Health Sciences Program Coordinator Name Role Phone Juma Herrera MD Unavailable Curtis Burns MD Primary Care Provider [phone] Reason for Visit * Reason Onset Date Comments Appointment Related 05/27/2023 Encounter Details Date Type Department Care Team (Late st Contact Info) Description 05/27/2023 Telephone [facility] Neurology - [place] [address] [place] [phone] Kj Gloria MD PhD 1 [facility] 2 [place] [address] Appointment Related Social History Tobacco [...] encounter Miscellaneous Notes * Telephone Encounter - ZaneLoretta - 05/27/2023 1000 EDT Tia called in this morning needing to cancel her video follow up with Dr. Gloria for 11:30 am this morning. She is in the ED with her granddaughter right now. She will call back to reschedule. Thank you documented in this encounter Plan of Treatment Upcoming Encounters Date Type Department Care Team (Late st Contact Info) Description 04/27/2024 14:30 EDT Telemedicine [facility] Neurology - [address] [phone] Kj Gloria MD PhD 1 [facility] 2 [place] [phone] 04/30/2024 9:30 EDT Office Visit [facility] Interventional Pain [address] [facility] [place], [place] [phone] Catalino Garrett MD 62 [facility] [address] [place] [address] 09/18/2024 11:00 EST Office Visit [facility] Bariatric Surgery - [place] [address] [place], [place] [address] Allen Thompson PA-C [address] [place] [address], [address] [place] [phone] documented as of this encounter Visit Diagnoses Not on filedocumented in this encounter Care Teams Health Sciences Program Coordinator Relationship Specialty Start Date End Date Curtis Burns MD 26 [facility] [address] [place] [address] PCP - General Emergency Medicine 07/06/22 Juma Herrera MD [address] [facility] [place] [address] 12/08/18 documented as of this encounter
--- OUTSIDE RECORDS SUMMARY | 2024-04-22 23:45 | XMS_ITS | Encounter Summary ---
Author Organization [facility] Address [address] [place] [address] Care Team Providers Care Director [employer] Marketing Name Role Phone Juma Herrera MD Unavailable Curtis Burns MD Primary Care Provider [phone] Reason for Visit * Reason Comments Follow-up Telemedicine Video Visit Encounter Details Date Type Department Care Team (Late st Contact Info) Description 07/15/2023 14:00 EST Telemedicine [facility] Neurology - [place] [address] [place] [phone] Kj Gloria MD PhD [address] [place] [address] [address] [place] [address] Chronic migraine without aura without [...] Notes * Kj Gloria MD PhD - 07/15/2023 1400 EST Neurology Consult Follow Up Note Date of Service: 07/15/2023 PCP: Curtis Burns Follow up for: migraine [...] last seen in follow-up via Zoom on 12/17/22. At that time, she continued to report ~ 3 mild headache days per month, with occasional ???rough weeks?? related to hot weather or to neck arthritis (receiving scheduled cervical epidural blocks from the Pain Clinic). She was taking Aimovig 140mg Q 28 days (without side effects), rizatriptan 10mg PRN, or riytrhtrhej1ch sc injections (~ 2 to 3 times per month). At her initial evaluation in the Headache Clinic (02/21/21), she had reported daily headaches, with severe headache ~ 15 days per month. I suggested obtaining FL-41 eyeglasses for photophobia. She did obtain these eyeglasses and wears them when she drives with good effect. She still reports ~ 3 to 4 significant headache days per month, with an increase in stress headaches. 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 She feels overwhelmed with poor sleep. She says that she has adequate social work and behavioral care. Medications and Allergies: Outpatient Medications Marked as Taking for the 07/15/23 encounter (Telemedicine) with Kj Gloria MD PhD Medication Sig Dispense Refill ??? acetaminophen (TYLENOL EX STR RAPID RELEASE ORAL) Take by mouth 3 times daily. ??? busPIRone (BUSPAR) 30 mg tablet Take 1 Tablet by mouth 2 times daily. ??? calcium carbonate/vitamin D3 (VITAMIN D-3 ORAL) Take by mouth. ??? cholecalciferol, Vitamin D3, 25 mcg (1,000 unit) tablet Take 4 Tablets by mouth daily. ??? cloNIDine HCL (CATAPRES) 0.1 mg tablet Take 1 Tablet by mouth 2 times daily. ??? cortisone acetate (CORTISONE IM) Inject 1 Dose into the muscle every 3 months. ??? duloxetine (CYMBALTA) 30 mg capsule Take 3 Capsules by mouth daily. Take with 60mg cap to =90mgdose ??? erenumab-aooe (AIMOVIG AUTOINJECTOR) 140 mg/mL auto-injector Inject 1 mL into the skin every 28days. 3 mL 0 ??? MAGNESIUM ORAL Take 500 mg by mouth daily. ??? MEDICAL MARIJUANA as needed. ??? methylphenidate (RITALIN SR; METADATE ER; METHYLIN ER) 20 mg SR tablet Take by mouth 2 times daily. Takes 20 mg every morning, 20 mg every afternoon, 10 mg every evening. ??? methylphenidate (RITALIN;METHYLIN) 5 mg tablet Take 2 Tablets by mouth 2 times daily. ??? multivitamins (THERAGRAN) Take 5 mL by mouth daily. ??? naproxen sodium (ALEVE ORAL) Take by mouth 3 times daily. prn ??? nystatin (MYCOSTATIN) powder Apply to affected area twice daily. Clean and thoroughly dry area before application. 30 g 1 ??? omega-3 fatty acids/fish oil (FISH OIL-OMEGA-3 FATTY ACIDS) 300-1,000 mg capsule daily. ??? omeprazole (PRILOSEC) 40 mg capsule Take 1 Capsule by mouth daily. 90 Capsule 3 ??? pregabalin (LYRICA) 50 mg capsule Take 2 Caps by mouth 3 times daily. 180 Cap 3 ??? prochlorperazine (COMPAZINE) 10 mg tablet Take 1 Tab by mouth every 6 hours as needed for Nausea 60 Tab 0 ??? SUMAtriptan Succinate 6 mg/0.5 mL cartridge Inject 6 mg into the skin as needed (migraine). Take as directed. 6 mL 11 Allergies Allergen Reactions ??? Adhesive Other (See Comments) Skin irritation, paper tape ok ??? Bee Sting [Hymenoptera Allergenic Extract] Swelling Fever and vomiting ??? Codeine Hives and Nausea And Vomiting ??? Other - See Comments Nausea And Vomiting Root beer Assessment and Plan: Chronic migraine remitted to episodic migraine. Continue current regimen. Keep headache record. Return to clinic ~ 4 months. I spent a total of > 30 minutes on the date of this encounter meeting with the patient and reviewing documentation/coordinating care as described in the above note. Tia was seen today for follow-up and telemedicine video visit. Diagnoses and all orders for this visit: Chronic migraine without aura without status migrainosus, not intractable Kj Gloria MD PhD 07/15/2023 13:56 documented in this encounter Plan of Treatment Upcoming Encounters Date Type Department Care Team (Late st Contact Info) Description 04/27/2024 14:30 EDT Telemedicine [facility] Neurology - [address] [address] Kj Gloria MD PhD [address] [place] [address] [address] [place] [phone] 04/30/2024 9:30 EDT Office Visit [facility] Interventional Pain [address] [place], [place] [phone] Catalino Garrett MD [address] [place] [address] 09/18/2024 11:00 EST Office Visit [facility] Bariatric Surgery - [place] [address] [place], [place] [phone] Allen Thompson PA-C 111 [facility], [address] [place] [phone] documented as of this encounter Visit Diagnoses Diagnosis Chronic migraine without aura without status migrainosus, not intractable- Primary Chronic migraine without aura, without mention of intractable migraine without mention of status migrainosus documented in this encounter Historical Medications * This list may reflect changes made after this encounter. Medication Sig Dispensed Refills Start Date End Date UNABLE TO FIND daily. Med Name: Salon Pas/Lidocaine Patch ALBUTEROL INHL Inhale as directed 2 times daily. B-complex with vitamin C (VITAMIN B COMPLEX-C ORAL) Take by mouth daily. added in this encounter Care Teams Director [employer] Relationship Specialty Start Date End Date Curtis Burns MD [address] [place] [address] PCP - General Emergency Medicine 07/06/22 Juma Herrera MD [address] [place] [phone] 12/08/18 documented as of this encounter
--- OUTSIDE RECORDS SUMMARY | 2024-04-22 23:45 | XMS_ITS | Encounter Summary ---
Author Organization [facility] Address [address] [place] [address] Care Team Providers Care Lehr Attendant Name Role Phone Juma Herrera MD Unavailable Curtis Burns MD Primary Care Provider [phone] Reason for Visit * Reason Comments Pain Patient is here for pain in butt, hips and legs Encounter Details Date Type Department Care Team (Latest Contact Info) Description 05/21/2023 10:30 EDT Office Visit [facility] Interventional Pain [address] [facility] [place] [address] Catalino Garrett MD [address] [facility] [address] [place] [address] Lumbar radiculopathy (Primary Dx) Social History [...] Sign Reading Time Taken Comments Blood Pressure 133/66 05/21/2023 1001 EDT Pulse 89 05/21/2023 1001 EDT Temperature 36.2 ??C (97.1 ??F) 05/21/2023 1001 EDT Respiratory Rate 16 05/21/2023 1001 EDT Oxygen Saturation 96% 05/21/2023 1001 EDT Inhaled Oxygen Concentration - - Weight [...] as of this encounter Progress Notes * Catalino Garrett MD - 05/21/2023 1030 EDT Images from the original note were not included. INTERVENTIONAL PAIN FOLLOW UP Patient Name: Tia Rooney Date of Service: 05/21/23 Chief Complaint: Chief Complaint Patient presents with ??? Pain Patient is here for pain in butt, hips and legs History of Present Illness: Ms. Tia Rooney is a 47 y.o. female with past medical history listed below who returns to the pain clinic concerning chronic low back and leg pain worse on right How long pain has been present: this particular symptom has been getting worse over the past few months Referred/Radicular Pain Symptoms: R L3, or L4 Description of Pain: sharp, shooting Activities that worsen pain: standing, bending twisting lifting Activities that improves pain: inactivity Functional limitations: difficulty working, performing ADLs Diagnostics: Lum MRI 10/2022 Therapeutic measures that have been trialed include: Multimodal medication regimen, bracing, activity modification Inj Hx 05/02/2023: cervical epidural steroid injection at C7-T1 - continued resoluton of cervical generatedpain as of this encounter 01/08/2023: cervical epidural steroid injection at C7T1 (C6C7 planned but achieved access at this level) ?? 05/17/22: cervical epidural steroid injection at C6C7 ?? 02/01/22: cervical epidural steroid injection at C6C7 - 3 months of 80% improvement of Posterior neckpain and R cervicothoracic junction ?? 12/2021: R subacromial inj and R AC inj w/ Dr. Balbuena - 80% improvement in ?? 05/17/2021: sacroiliac joint injection bilateral??- 80% improvement [...] to 2013 L5-S1 decompression and fusion (2006) Patient currently denies any bowel and/or bladder incontinence, progressive weakness, saddle numbness, unexplained fever, trauma or unexplained weight loss. Allergies: Allergies Allergen Reactions ??? Adhesive Other (See Comments) Skin irritation, paper tape ok ??? Bee Sting [Hymenoptera Allergenic Extract] Swelling Fever and vomiting ??? Codeine Hives and Nausea And Vomiting ??? Other - See Comments Nausea And Vomiting Root beer Current Medications: Current Outpatient Medications Medication ??? acetaminophen (TYLENOL EX STR RAPID RELEASE ORAL) ??? busPIRone (BUSPAR) 5 mg tablet ??? calcium carbonate/vitamin D3 (VITAMIN D-3 ORAL) ??? cholecalciferol, Vitamin D3, 25 mcg (1,000 unit) tablet ??? cloNIDine HCL (CATAPRES) 0.1 mg tablet ??? cortisone acetate (CORTISONE IM) ??? duloxetine (CYMBALTA) 30 mg capsule ??? erenumab-aooe (AIMOVIG AUTOINJECTOR) 140 mg/mL auto-injector ??? MAGNESIUM ORAL ??? MEDICAL MARIJUANA ??? methylphenidate (RITALIN SR; METADATE ER; METHYLIN ER) 20 mg SR tablet ??? methylphenidate (RITALIN;METHYLIN) 5 mg tablet ??? multivitamins (THERAGRAN) ??? naproxen sodium (ALEVE ORAL) ??? nystatin (MYCOSTATIN) powder ??? omega-3 fatty acids/fish oil (FISH OIL-OMEGA-3 FATTY ACIDS) 300-1,000 mg capsule ??? omeprazole (PRILOSEC) 40 mg capsule ??? pregabalin (LYRICA) 50 mg capsule ??? prochlorperazine (COMPAZINE) 10 mg tablet ??? SUMAtriptan Succinate 6 mg/0.5 mL cartridge No current facility-administered medications for this visit. Past Medical HX: Past Medical History: Diagnosis Date ??? Anxiety ??? Arthritis ??? Back pain ??? Bipolar disorder (HCC-CMS) ??? Breathing problem ??? Depression ??? Diabetes mellitus (HCC-CMS) ??? Drug abuse (HCC-CMS) ([facility]) ??? Environmental allergies ??? Eye problem ??? Generalized headaches ??? Headache(784.0) ??? Heart disease ??? History of substance abuse (HCC-CMS) ([facility]) ??? Hypertension ??? Kidney disease ??? Mental [...] on file Tobacco Use ??? Smoking status: Every Day Types: Cigarettes Last attempt to quit: 01/13/2009 Years since quittin.3 ??? Smokeless tobacco: Never ??? Tobacco comments: Vapes nicotine Substance and Sexual Activity ??? Alcohol use: Yes Alcohol/week: 0.0 standard drinks of alcohol Comment: very rarely ??? Drug use: No ??? Sexual activity: Not on file Other Topics Concern ??? Not on file Social History Narrative ??? Not on file Social Determinants of Health Financial Resource Strain: Not on file Food Insecurity: Not on file Transportation Needs: Not on file Physical Activity: Not on file Stress: Not on file Social Connections: Not on file Housing Stability: Not on file Family HX: Patient denies any family history of chronic pain, immunological or genetic syndromes that is contributory to the patient's current symptoms. Physical Exam: Vitals: BP 133/66 Pulse 89 Temp 36.2 ??C (97.1 ??F) (Tympanic) Resp 16 SpO2 96% General: Patient is alert and oriented x3, no acute distress Neuro: Cranial nerves II-XII grossly intact and symmetric Cardio: ext wwp Lungs: no evidence of labored breathing Skin: clear, warm, dry and intact and no rashes, bruises or petechiae noted Musculoskeletal: Gait: patient ambulates independently, antalgic gait Lumbar Spine: tenderness elicited upon palpation, somewhat diffusely. Sacroiliac joint: tenderness upon palpation, pos SUMIT Lower Extremity: strength reduced globally secondary to pain Assessment/Plan: 1. Lumbar radiculopathy Ms. Tia Rooney is a 47 y.o. female with complex pmhx who returns to the pain clinic for treatment recommendations concerning chronic radicular leg pain. She saw Dr. Child who noted that symptomscould be due to spondylolisthesis, which makes sense. Given the patient's symptomatology, physical exam findings and imaging results, we feel that the patient would most likely benefit from a TFESI at right L3L4. I will plan on seeing her back about 4-6 weeks after. All risks, benefits, and alternatives were thoroughly explained to Ms. Tia Rooney who verbally communicated understanding of themanagement plan. Gerry MEHTA documented in this encounter Plan of Treatment Upcoming Encounters Date Type Department Care Team (Late st Contact Info) Description 04/27/2024 14:30 EDT Telemedicine [facility] Neurology - [facility] [place] [address] [place], [place] [address] Kj Gloria MD PhD 1 [facility] [address] [place] [phone] 04/30/2024 9:30 EDT Office Visit [facility] Interventional Pain [address] [place] [address] Catalino Garrett MD 62 [facility] [address] [place] [address] 09/18/2024 11:00 EST Office Visit [facility] Bariatric Surgery [facility] [address] [place], [place] [address] Allen Thompson, MARGARITA-C [address] [facility], [address] [place] [phone] documented as of this encounter Visit Diagnoses Diagnosis Lumbar radiculopathy- Primary Thoracic or lumbosacral neuritis or radiculitis, unspecified documented in this encounter Care Teams Lehr Attendant Relationship Specialty Start Date End Date Curtis Burns MD [address] [facility] [address] [place] [address] PCP - General Emergency Medicine 07/06/22 Juma Herrera MD [address] [facility] [place] [address] 12/08/18 documented as of this encounter
--- OUTSIDE RECORDS SUMMARY | 2024-04-22 23:45 | XMS_ITS | Encounter Summary ---
Author Organization [facility] Address [address] [place] [address] Care Team Providers Care Sales And Marketing Administrator Name Role Phone Juma Herrera MD Unavailable Curtis Burns MD Primary Care Provider [phone] Reason for Visit * Reason Comments Back Pain Bilateral * Prior Authorization (Routine) - Authorization Not Required Specialty Diagnoses / Procedures [facility]erred To Contact Pain [facility] Diagnoses Radiculopathy, lumbar region bilateral SI joint injection / pa pending Procedures SD INJECT SI JOINT ARTHRGRPHY&/ANES/STEROID W/PARMINDER PAIN CLINIC PROCEDURE [facility] [address] [facility] [place] [address] Catalino Garrett MD [address] [place] [phone] Referral ID Status Reason Start Date Expiration Date Visits Requested Visits Authorized [id number] Authorization Not Required 1 1 Encounter Details Date Type Department Care Team (Latest Contact Info) Description 11/19/2023 11:00 EDT Office Visit [facility] Interventional Pain [address] [place] [address] Catalino Garrett MD 62 [facility] [address] [place] [phone] Sacroiliitis (HCC-CMS) (Primary Dx) Social History Tobacco Use Types [...] Reading Time Taken Comments Blood Pressure 135/71 11/19/2023 1052 EDT Pulse 100 11/19/2023 1052 EDT Temperature - - Respiratory Rate 16 11/19/2023 1008 EDT Oxygen Saturation - - Inhaled Oxygen [...] this encounter Patient Instructions * Patient Instructions* Albina Cian RN - 11/19/2023 11:00 EDT [facility] [address] [phone] Patient Instructions You have had your bilateral [...] Progress Notes * Sandi Alvarez MA - 11/19/2023 1100 EDT [facility] Rooming Note Does patient have a Director Alumni Relations? yes Is patient NPO? (Solids since midnight & liquids for 4 hrs) no Blood Thinners: Is patient on Blood Thinners? yes If yes, taking? yes If stopped, who authorized stopping? Related comments: [...] Other: no * Catalino Garrett MD - 11/19/2023 1100 EDT Patient Name: Tia Rooney : 1975 Date of Service: 11/19/2023 Steel Layer: Catalino Garrett MD Manager Logistic: None Procedure: Diagnostic and Therapeutic sacroiliac joint injection bilateral Interval History: As stated prev has a history of right L5-S1 discectomy and decompression (1999) followed by L5-S1 decompression and fusion (2006). She has done physical therapy and chiropractor care but still has severe pain. Pain is below her surgical scar. She points to her bilateral buttock region. Pain is worse after she works for 3-4 hours,.The patient reports no recent changes in the character, quality, or distribution of the pain. There are no recent onset of new associated symptoms such aschanges in strength, sensation, or bladder control. All previous medical records including current medications, anticoagulation status, any signs of current infection, and new imaging were reviewed. Injection History: 11/19/2023: sacroiliac joint injection bilateral 10/08/2023: C7-T1 CUAUHTEMOC - on going 80% improvement of neck, shoulder and arm pain as of 11/19/23 07/02/23: lumbar transforaminal epidural steroid injections at [...] inj and R AC inj w/ Dr. Lanexa - 80% improvement in 05/17/2021: sacroiliac joint [...] to 2013 L5-S1 decompression and fusion (2006) 04/05/2021: cervical epidural steroid injection at C6C7 - 80% improvement in posterior neck pain. Continued pain at shoulder and clavicle on right 03/20/2021: intra-articularR knee joint injection w monovisc [...] and fusion (2006) Allergies: Allergies Allergen Reactions Adhesive Other (See Comments) Skin irritation, paper tape ok Bee Sting [Hymenoptera Allergenic Extract] Swelling Fever and vomiting Codeine Hives and Nausea And Vomiting Other - See Comments Nausea And Vomiting Root beer Pt says she can sometimes drink it Current Outpatient Medications on File Prior to Visit Medication Sig Dispense Refill acetaminophen (TYLENOL EX [...] 2 Tablets by mouth 2 times daily. (Patient not taking: Reported on 10/08/2023) multivitamins (THERAGRAN) Take 5 mL by mouth [...] Capsule by mouth daily. 90 Capsule 3 pregabalin (LYRICA) 50 mg capsule Take 2 Caps by mouth 3 times daily. 180 Cap 3 prochlorperazine (COMPAZINE) 10 mg tablet Take 1 Tab by mouth every 6 hours as needed for Nausea 60Tab 0 SUMAtriptan Succinate 6 mg/0.5 mL cartridge Inject 6 mg into the skin as needed (migraine). Take asdirected. 6 mL 11 UNABLE TO FIND daily. Med Name: Salon Pas/Lidocaine Patch No current facility-administered medications on file prior to visit. Review of Systems: Negative for any fever, chills, nausea/vomiting, headaches, chest pain, palpitations, shortness of breath, bladder/bowel incontinence. No easy bruising, bleeding, anti-coagulation or known recent infections. Physical Exam: Vitals: BP (!) 132/92 (BP Cuff Location: Right arm, BP Patient Position: Sitting, BP Cuff Sizes: Adult, large) Pulse 102 Resp 16 General: Patient is alert and [...] of SI joint bilateral, positive SUMIT test b/l, pos compression test b/l, pos distraction test b/l Cerv spine: ttp lower c-spine with nl rom and full strength in b/l UE Lower Extremity: strength 5/5 in all keenan muscle groups b/l, R knee ttp with painful active ROM Assessment: 1. Sacroiliitis ([facility]) Plan: Ms. Tia Rooney is a 48 y.o. female that presents to the pain clinic to undergo sacroiliac jointinjection in regards to her chronic back pain. All risks, benefits, and alternatives were thoroughly explained to Ms. Tia Rooney who verbally communicated understanding of the management plan. Proceed with sacroiliac joint injection bilateral. Followup: repeat YSABEL in early January Procedure: The patient gave informed written consent to proceed with this procedure following a detailed discussion of the risks and benefits associated with sacroiliac joint injection including but not limitedto infection, bleeding, allergic reaction, further exacerbation of current symptoms, neurological in jury, and lack of efficacy. The site was marked prior to the start of the procedure. The patient was then placed in the prone position, the skin over the area was prepped with chlorhexadine, and the site was marked and draped with sterile towels. Strict sterile technique was maintained throughout the procedure. A time out was performed with full staff present to [...] aspect of the joint under fluoroscopic guidance bycoaxial technique. After negative aspiration, 40 mg Depo-Medrol and 3 ml 0.5% Ropivacaine were injected in each oint. See nursing MAR for wasted medications The needle was then flushed and withdrawn. The patient tolerated the procedure well, there were no apparent complications, and she was discharged in stable condition. Written and verbal discharge instructions were reviewed with the patient prior to discharge. Gerry MEHTA * Albina Cain RN - 11/19/2023 1100 EDT ATTENTION: This Checklist should be reviewed with the patient, provider, nurse/MA, and technology coach in the room prior to local anesthetic [...] Info) Description 04/27/2024 14:30 EDT Telemedicine [facility] Neurology - [address] [place], [place] [address] Kj Gloria MD PhD 1 [facility], [address] [place] [phone] 04/30/2024 9:30 EDT Office Visit [facility] Interventional Pain [address] [facility] [place] [address] Catalino Garrett MD [address] [facility] [address] [place] [address] 09/18/2024 11:00 EST Office Visit [facility] Bariatric Surgery [facility] [address] [place], [place] [address] Allen Thompson, ZHOUC [address] [facility], [facility], [address] [place] [address] documented as of this encounter Visit Diagnoses Diagnosis Sacroiliitis ([facility])- Primary Sacroiliitis, not elsewhere classified documented in this encounter Administered Medications Inactive Administered Medications - up to 3 most recent administrations Medication Order MAR Action Action Date Dose Rate Site methylPREDNISolone ACETATE (DEPO-MEDROL) injection 80 mg 80 mg, intra-articular, NOW X1, 1 dose, On Sat11/19/23 at 1115, Routine Given by Other 11/19/2023 10:52 EDT 80 mg ROPivacaine (PF) (NAROPIN) injection 6 mL 6 mL, other, NOW X1, 1 dose, On Sat11/19/23 at 1115, Routine Given by Other 11/19/2023 10:52 EDT 6 mL documented in this encounter Care Teams Sales And Marketing Administrator Relationship Specialty Start Date End Date Curtis Burns MD 26 [facility] [address] [place] [address] PCP - General Emergency Medicine 07/06/22 Juma Herrera MD [address] [facility] [place] [phone] 12/08/18 documented as of this encounter
--- OUTSIDE RECORDS SUMMARY | 2024-04-22 23:45 | XMS_ITS | Referral Summary ---
Author Organization [facility] Address [address] [place] [address] Care Team Providers Care Passport Support Manager Name Role Phone Juma Herrera MD Unavailable Curtis Burns MD Primary Care Provider [phone] Encounters Date Type Department Care Team Description 04/10/2024 Telephone [facility] Interventional Pain [address] [place], [place] [phone] Shantelle Gautam, RN Results 04/09/2024 7:33 EDT - 04/09/2024 23:59 EDT Hospital Encounter [facility] Xray [address] [place], [place] [phone] Discharge Disposition: Home or Self Care 04/09/2024 13:30 EDT Office Visit [facility] Interventional Pain [address] [place], [place] [phone] Catalino Garrett MD Spondylosis of 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 myelopathy (Primary Dx) 03/12/2024 Telephone [facility] Interventional Pain [address] [place], [place] [phone] Shantelle Gautam, RN Results 03/11/2024 8:08 EDT - 03/11/2024 23:59 EDT Hospital Encounter [facility] Clinic Xray [address] [place], [place] [phone] Discharge Disposition: Home or Self Care 03/11/2024 13:30 EDT Office Visit [facility] Interventional Pain [address] [place] [address] Catalino Garrett MD Spondylosis of 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 myelopathy (Primary Dx) 02/07/2024 8:04 EDT - 02/07/2024 23:59 EDT Hospital Encounter [facility] Clinic Xray [address] [place], [place] [phone] Discharge Disposition: Home or Self Care 02/07/2024 13:00 EDT Office Visit [facility] Interventional Pain [address] [place] [address] Catalino Garrett MD Radiculopathy, cervical region (Primary Dx) 01/30/2024 11:00 EDT Office Visit [facility] Interventional Pain [address] [place] [address] Catalino Garrett MD Spondylosis of 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 myelopathy (Primary Dx) 01/29/[address] [facility] [address] [place] [id number] [address] [facility] Refill Coordination Outreach for Headache 01/21/2024 Telephone [facility] Neurology - S [address] [phone] Kj Gloria MD PhD Appointment Related from Last 3 Months Allergies Active Allergy Reactions Criticality Noted Date [...] different from the original. PER MEDICAID WEB, MDV TERMED 09/10/19 AND SWITCHED TO VPHARM PLAN AID CATEGORY VN WHICH WE DO NOT LOAD. NO OTHER SECONDARY INS PER SHAWN Gonzalez 09/15/2020 7:55 Problem Noted Date Diagnosed Date Chronic migraine without aur a without status migrainosus, not intractable 02/21/2021 Morbid obesity with BMI of 45.0-49.9, adult ([facility]) 03/10/2015 Cervicalgia 09/29/2012 Idiopathic peripheral neuropathy 03/20/2012 Tarsal tunnel syndrome of right side 08/02/2011 Os trigonum syndrome 06/18/2011 Overview: Right Lumbar radiculopathy 10/03/2006 Social History Tobacco Use Types Packs/Day Years [...] 12:31 EST Sexual Orientation Not on file Last Filed [...] Body Mass Index 32.09 09/20/2023 1047 EST Functional Status Functional Status Response Date of [...] concentrating, remembering, or making decisions? Yes 09/15/2018 Plan of Treatment Upcoming Encounters Date Type Department Care Team (Late st Contact Info) Description 04/27/2024 14:30 EDT Telemedicine [facility] Neurology - [facility] [place] [address] [place], [place] [phone] Kj Gloria MD PhD 1 [facility] [address] [place] [phone] 04/30/2024 9:30 EDT Office Visit [facility] Interventional Pain 62 [place] [address] Catalino Garrett MD 62 [facility] [address] [place] [address] 09/18/2024 11:00 EST Office Visit [facility] Bariatric Surgery [facility] [address] [place], [place] [address] Allen Thompson PA-C 111 [facility], [facility], [address] [place] [phone] Medical Devices Implanted Type Area Instrument Sterilizer Device Identifier Shelf Expiration Date Model / [...] 1.1 W/kg for 25 minutes of imaging BW StageBloc Procedures Procedure Name Priority Date/Time Associated Diagnosis [...] exam. Catalino DEY OTHER IMAGING OR DERABLES from Last 3 Months Advance Directives For more information, please contact: [phone] Documents on File Type Date Recorded Patient Carrot Grader Inspector Expl anation COLST/MOLST 01/28/2019 11:35 Advance Directive 09/05/2015 5:47 [place] signed 2011-05-29 * Full Code (Latest Code Status on File) Date Activated Date Inactivated Comments 09/05/2015 6:25 09/07/2015 14:23 Question Answer Comments Reason for decision includes: Full code consistent with overall plan of care Who participated in the discussion? Not Mamadou d Care Teams Passport Support Manager Relationship Specialty Start Date End Date Curtis Burns MD 26 [facility] [address] [place] [address] PCP - General Emergency Medicine 07/06/22 Juma Herrera MD [address] [facility] [address] 12/08/18
--- OUTSIDE RECORDS SUMMARY | 2024-04-22 23:45 | XMS_ITS | Encounter Summary ---
Author Organization [facility] Address [address] [place] [address] Care Team Providers Care Curtain Feller Blindstitch Name Role Phone Juma Herrera MD Unavailable Curtis Burns MD Primary Care Provider [phone] Reason for Visit * Reason Onset Date Comments Appointment Related 08/29/2023 Encounter Details Date Type Department Care Team (Late st Contact Info) Description 08/29/2023 Telephone [facility] Interventional Pain 62 [facility] [place] [address] Catalino Garrett MD [address] [facility] [address] [place] [address] Appointment Related Social History Tobacco Use Types [...] encounter Miscellaneous Notes * Telephone Encounter - Mica Souza - 08/29/2023 0838 EST Pt returned call. Appointment has been moved, per her request to 10/08/2023, checking in @10:30 am for 11:15 am, procedure. Safety info and appt confirmation sent thru My Chart. * Telephone Encounter - Mica Souza - 08/29/2023 0822 EST LMOM. Pt was scheduled for procedure 08/30/23. Provider will not be available on that day. LM to inform appointment has been moved to 10/01/23 @10:00 am. Also sent message in my chart. Asked that she call back to confirm or reschedule the new appointment. documented in this encounter Plan of Treatment Upcoming Encounters Date Type Department Care Team (Late st Contact Info) Description 04/27/2024 14:30 EDT Telemedicine [facility] Neurology - [address] [place] [address] [place] [address] Kj Gloria MD PhD 1 [facility], Level 2 [place] [phone] 04/30/2024 9:30 EDT Office Visit [facility] Interventional Pain 62 [facility] [place] [address] Catalino Garrett MD [address] [place] [address] [address] [place] [phone] 09/18/2024 11:00 EST Office Visit [facility] Bariatric Surgery - [place] [address] [place] [address] Allen Thompson PA-C [address] [place] [address], [facility] 5 [place] [address] documented as of this encounter Visit Diagnoses Not on filedocumented in this encounter Care Teams Curtain Feller Blindstitch Relationship Specialty Start Date End Date Curtis Burns MD 26 [facility] [address] [place] [address] PCP - General Emergency Medicine 07/06/22 Juma Herrera MD [address] [place] [address] 12/08/18 documented as of this encounter
--- OUTSIDE RECORDS SUMMARY | 2024-04-22 23:45 | XMS_ITS | Encounter Summary ---
Author Organization [facility] Address [address] [place] [address] Care Team Providers Care Rn On Site Name Role Phone Juma Herrera MD Unavailable Curtis Burns MD Primary Care Provider [phone] Encounter Details Date Type Department Care Team (Latest Contact Info) Description 02/07/2024 8:04 EDT - 02/07/2024 23:59 EDT Hospital Encounter [facility] Xray [address] [place], [place] [phone] Discharge Disposition: Home or Self Care Social [...] Contact Info) Description 04/27/2024 14:30 EDT Telemedicine [facility] Neurology [address] [address] Kj Gloria MD PhD 1 [facility] Level 2 [place] [phone] 04/30/2024 9:30 EDT Office Visit [facility] Interventional Pain 62 [place], [place] [phone] Catalino Garrett MD 62 [facility] [address] [place] [address] 09/18/2024 11:00 EST Office Visit [facility] Bariatric Surgery - [place] [address] [place], [place] [address] Allen Thompson PA-C 111 [facility], [address] 5 [place] [address] documented as of this encounter Procedures Procedure Name Priority Date/Time Associated Diagnosis Comments PAIN CLINIC [place] CERVICAL INJECTION Routine 02/07/2024 13:23 EDT documented in this encounter Results * PAIN CLINIC FL CERVICAL INJECTION (02/07/2024 13:23 EDT) Narrative 02/07/2024 13:23 EDT This is a non-reportable exam. Catalino Garrett MD IMG OTHER IMAGING OR DERABLES documented in this encounter Visit Diagnoses Not on filedocumented in this encounter Care Teams Rn On Site Relationship Specialty Start Date End Date Curtis Burns MD 26 [facility] [address] [place] [address] PCP - General Emergency Medicine 07/06/22 Juma Herrera MD [address] [facility] [place] [address] 12/08/18 documented as of this encounter
--- OUTSIDE RECORDS SUMMARY | 2024-04-22 23:45 | XMS_ITS | Encounter Summary ---
Author Organization [facility] Address [address] [place] [address] Care Team Providers Care Post Office Clerk Name Role Phone Juma Herrera MD Unavailable Curtis Burns MD Primary Care Provider [phone] Encounter Details Date Type Department Care Team (Latest Contact Info) Description 04/09/2024 7:33 EDT - 04/09/2024 23:59 EDT Hospital Encounter [facility] Xray [address] [place], [place] [phone] Discharge Disposition: Home or Self Care Social [...] Contact Info) Description 04/27/2024 14:30 EDT Telemedicine [facility] Neurology [address] [address] Kj Gloria MD PhD 1 [facility] Level 2 [place] [phone] 04/30/2024 9:30 EDT Office Visit [facility] Interventional Pain 62 [place], [place] [phone] Catalino Garrett MD 62 [facility] [address] [place] [address] 09/18/2024 11:00 EST Office Visit [facility] Bariatric Surgery - [place] [address] [place], [place] [address] Allen Thompson PA-C 111 [facility], [address] 5 [place] [address] documented as of this encounter Procedures Procedure Name Priority Date/Time Associated Diagnosis Comments PAIN CLINIC FL LUMBAR INJECTION Routine 04/09/2024 14:08 EDT documented in this encounter Results * PAIN CLINIC FL LUMBAR INJECTION (04/09/2024 14:08 EDT) Narrative 04/09/2024 14:09 EDT This is a non-reportable exam. Catalino Garrett MD IMG OTHER IMAGING OR DERABLES documented in this encounter Visit Diagnoses Not on filedocumented in this encounter Care Teams Post Office Clerk Relationship Specialty Start Date End Date Curtis Burns MD 26 [facility] [address] [place] [address] PCP - General Emergency Medicine 07/06/22 Juma Herrera MD [address] [facility] [place] [address] 12/08/18 documented as of this encounter
--- OUTSIDE RECORDS SUMMARY | 2024-04-22 23:45 | XMS_ITS | Encounter Summary ---
Author Organization [facility] Address [address] [place] [address] Care Team Providers Care Co Supervisor Grounds And Landscape Name Role Phone Juma Herrera MD Unavailable Curtis Burns MD Primary Care Provider [phone] Encounter Details Date Type Department Care Team (Latest Contact Info) Description 03/11/2024 8:08 EDT - 03/11/2024 23:59 EDT Hospital Encounter [facility] Pain Clinic Xray [address] [place], [place] [phone] Discharge Disposition: Home or Self Care Social [...] Description 04/27/2024 14:30 EDT Telemedicine [facility] Neurology [address] [address] Kj Gloria MD PhD 1 [facility] Level 2 [place] [phone] 04/30/2024 9:30 EDT Office Visit [facility] Interventional Pain 62 [place], [place] [phone] Catalino Garrett MD 62 [facility] [address] [place] [address] 09/18/2024 11:00 EST Office Visit [facility] Bariatric Surgery - [place] [address] [place], [place] [address] Allen Thomspon PA-C 111 [facility], Level [address] [place] [address] documented as of this encounter Procedures Procedure Name Priority Date/Time Associated Diagnosis Comments PAIN CLINIC FL LUMBAR INJECTION Routine 03/11/2024 13:41 EDT documented in this encounter Results * PAIN CLINIC FL LUMBAR INJECTION (03/11/2024 13:41 EDT) Narrative 03/11/2024 13:42 EDT This is a non-reportable exam. Catalnio Garrett MD IMG OTHER IMAGING OR DERABLES documented in this encounter Visit Diagnoses Not on filedocumented in this encounter Care Teams Co Supervisor Grounds And Landscape Relationship Specialty Start Date End Date Curtis Burns MD 26 [facility] [address] [place] [address] PCP - General Emergency Medicine 07/06/22 Juma Herrera MD [address] [facility] [place] [address] 12/08/18 documented as of this encounter
--- OUTSIDE RECORDS SUMMARY | 2024-04-22 23:45 | XMS_ITS | Encounter Summary ---
Author Organization [facility] Address [address] [place] [address] Care Team Providers Care Fire Captain Name Role Phone Juma Herrera MD Unavailable Curtis Burns MD Primary Care Provider [phone] Reason for Visit * Reason Onset Date Comments Results 08/06/2023 Encounter Details Date Type Department Care Team (Late st Contact Info) Description 08/06/2023 Telephone [facility] Interventional Pain [address] [place] [address] Shantelle Gautam RN Results Social [...] Telephone Encounter - Shantelle Gautam RN - 08/06/2023 0942 EST ----- Message from Elenita Guallpa RN sent at 07/02/2023 11:21 EDT ----- Regarding: results Diagnostic injection done on: 07/02/23 Provider: Gerry Levels: Right L3-4 TFESI Call back number: [phone] Injection History: 07/02/23: lumbar transforaminal epidural steroid [...] inj w/ Dr. Balbuena - 80% improvement 08/06/2023: RN left a message for the pt to return call. 08/08/2023: RN left a message for the pt to return call. 08/23/2023: Pt not not responding to attempts to obtain results. Will close out encounter. documented in this encounter Plan of Treatment Upcoming Encounters Date Type Department Care Team (Late st Contact Info) Description 04/27/2024 14:30 EDT Telemedicine [facility] Neurology - [place] [address] [place] [address] Kj Gloria MD PhD [address] [place] [address] 2 [place] [phone] 04/30/2024 9:30 EDT Office Visit [facility] Interventional Pain [address] [place], [place] [phone] Catalion Garrett MD [address] [facility] [place] [address] 09/18/2024 11:00 EST Office Visit [facility] Bariatric Surgery - [place] [address] [place], [place] [phone] Allen Thompson PA-C 111 [facility], [address] [place] [phone] documented as of this encounter Visit Diagnoses Not on filedocumented in this encounter Care Teams Fire Captain Relationship Specialty Start Date End Date Curtis Burns MD 26 [facility] [address] [place], [place] [address] PCP - General Emergency Medicine 07/06/22 Juma Herrera MD [address] [facility] [place] [address] 12/08/18 documented as of this encounter
--- OUTSIDE RECORDS SUMMARY | 2024-04-22 23:45 | XMS_ITS | Encounter Summary ---
Author Organization [facility] Address [address] [place] [address] Care Team Providers Care Furs Salesperson Name Role Phone Juma Herrera MD Unavailable Curtis Burns MD Primary Care Provider [phone] Encounter Details Date Type Department Care Team (Latest Contact Info) Description 11/18/2023 Specialty Pharmacy [facility] [address] [place] [phone] Raymundo Cintron, [facility] Refill Coordination Outreach for Headache Social History [...] as of this encounter Progress Notes * Raymundo Cintron RPH - 11/18/2023 1503 EDT [facility] Specialty Pharmacy Change HealthCare Downtime Prescription Reprocessing Medication: Aimovig Claim Type: Secondary Payer Outcome: Copay Change - Contacting Patient Notes: Change in copay from $1 to $11.20 as patient is no longer eligible for [place] Med [place]. Need to contact patient to confirm change in copay and insurance. Raymundo Cintron, PharmD Ambulatory Pharmacist Clinician 11/18/2023 15:04 documented in this encounter Plan of Treatment Upcoming Encounters Date Type Department Care Team (Late st Contact Info) Description 04/27/2024 14:[address] [facility] Neurology - [facility] [place] 1 [place], [place] [address] Kj Gloria MD PhD 1 [facility] Level 2 [place] [phone] 04/30/2024 9:30 EDT Office Visit [facility] Interventional Pain 62 [facility] [place], [place] [phone] Catalino Garrett MD 62 [facility] [address] [place] [address] 09/18/2024 11:00 EST Office Visit [facility] Bariatric Surgery - [place] [address] [place] [address] Allen Thompson PA-C [address] [place] [address], [address] [place] [phone] documented as of this encounter Visit Diagnoses Not on filedocumented in this encounter Care Teams Furs Salesperson Relationship Specialty Start Date End Date Curtis Burns MD 26 [facility] [address] [place] [address] PCP - General Emergency Medicine 07/06/22 Juma Herrera MD [address] [facility] [place] [address] 12/08/18 documented as of this encounter
--- OUTSIDE RECORDS SUMMARY | 2024-04-22 23:45 | XMS_ITS | Encounter Summary ---
Author Organization [facility] Address [address] [place] [address] Care Team Providers Care Fiber Worker Name Role Phone Juma Herrera MD Unavailable Curtis Burns MD Primary Care Provider [phone] Encounter Details Date Type Department Care Team (Latest Contact Info) Description 11/19/2023 8:57 EDT - 11/19/2023 23:59 EDT Hospital Encounter [facility] Pain Clinic Xray [address] [place], [place] [phone] Discharge Disposition: Home or Self Care Social [...] EDT Telemedicine [facility] Neurology [address] [address] Kj Gloria MD PhD 1 [facility] [address] [place] [phone] 04/30/2024 9:30 EDT Office Visit [facility] Interventional Pain [address] [place], [place] [phone] Catalino Garrett MD 62 [facility] [address] [place] [address] 09/18/2024 11:00 EST Office Visit [facility] Bariatric Surgery - [place] [address] [place], [place] [address] Allen Thompson PA-C 111 [facility], Level [address] [place] [address] documented as of this encounter Procedures Procedure Name Priority Date/Time Associated Diagnosis Comments PAIN CLINIC FL SACROILIAC JOINT INJECTION Routine 11/19/2023 10:51 EDT documented in this encounter Results * PAIN CLINIC FL SACROILIAC JOINT INJECTION (11/19/2023 10:51 EDT) Narrative 11/19/2023 10:51 EDT This is a non-reportable exam. Catalino Garrett MD IMG OTHER IMAGING OR DERABLES documented in this encounter Visit Diagnoses Not on filedocumented in this encounter Care Teams Fiber Worker Relationship Specialty Start Date End Date Curtis Burns MD 26 [facility] [address] [place] [address] PCP - General Emergency Medicine 07/06/22 Juma Herrera MD [address] [facility] [place] [address] 12/08/18 documented as of this encounter
--- OUTSIDE RECORDS SUMMARY | 2024-04-22 23:45 | XMS_ITS | Encounter Summary ---
Author Organization [facility] Address [address] [place] [address] Care Team Providers Care Head Athletic Trainer Name Role Phone Juma Herrera MD Unavailable Curtis Burns MD Primary Care Provider [phone] Reason for Visit * Reason Comments Neck Pain Bilateral more right side Encounter Details Date Type Department Care Team (Latest Contact Info) Description 01/30/2024 11:00 EDT Office Visit [facility] Interventional Pain [address] [place] [address] Catalino Garrett MD [address] [place] [address] Spondylosis of 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 myelopathy (Primary Dx) Social History Tobacco Use Types [...] Sign Reading Time Taken Comments Blood Pressure 134/75 01/30/2024 1109 EDT Pulse 75 01/30/2024 1109 EDT Temperature - - Respiratory Rate 16 01/30/2024 1109 EDT Oxygen Saturation 100% 01/30/2024 1109 EDT Inhaled Oxygen Concentration - - Weight [...] Progress Notes * Catalino Garrett MD - 01/30/2024 1100 EDT INTERVENTIONAL PAIN FOLLOW UP Patient Name: Tia Rooney Date of Service: 01/30/24 Chief Complaint: Chief Complaint Patient presents with Neck Pain Bilateral more right side History of Present Illness: Ms. Tia Rooney is a 48 y.o. female with past medical history listed below who returns to the pain clinic concerning chronic low back, above fusion, rated as severe How long pain has been present: this particular symptom has been getting worse over the past few months Referred/Radicular Pain Symptoms: Description of Pain: sharp, shooting Activities that worsen pain: standing, bending twisting lifting Activities that improves pain: inactivity Functional limitations: difficulty working, performing ADLs, difficulty sleeping Lum MRI reviewed. Multilev deg disc and facet changes Therapeutic measures that have been trialed include: Multimodal medication regimen, bracing, activity modification Inj Hx 11/19/2023: sacroiliac joint injection bilateral - 80% improvement onoing 10/08/2023: C7-T1 CUAUHTEMOC - on going 80% improvement of neck, shoulder and arm pain for 3.5 months 07/02/23: lumbar transforaminal epidural steroid injections at [...] unexplained weight loss. Allergies: Allergies Allergen Reactions Adhesive Other (See Comments) Skin irritation, paper tape ok Bee Sting [Hymenoptera Allergenic Extract] Swelling Fever and vomiting Codeine Hives and Nausea And Vomiting Other - See Comments Nausea And Vomiting Root beer Pt says she can sometimes drink it Current Medications: Current Outpatient Medications Medication acetaminophen (TYLENOL EX STR RAPID RELEASE ORAL) ALBUTEROL INHL B-complex with vitamin C (VITAMIN B COMPLEX-C ORAL) busPIRone (BUSPAR) 30 mg tablet calcium carbonate/vitamin D3 (VITAMIN D-3 ORAL) cholecalciferol, Vitamin D3, 25 mcg (1,000 unit) tablet cloNIDine HCL (CATAPRES) 0.1 mg tablet cortisone acetate (CORTISONE IM) duloxetine (CYMBALTA) 30 mg capsule erenumab-aooe (AIMOVIG AUTOINJECTOR) 140 mg/mL auto-injector MAGNESIUM ORAL MEDICAL MARIJUANA methylphenidate (RITALIN SR; METADATE ER; METHYLIN ER) 20 mg SR tablet methylphenidate (RITALIN;METHYLIN) 5 mg tablet multivitamins (THERAGRAN) naproxen sodium (ALEVE ORAL) nystatin (MYCOSTATIN) powder omega-3 fatty acids/fish oil (FISH OIL-OMEGA-3 FATTY ACIDS) 300-1,000 mg capsule omeprazole (PRILOSEC) 40 mg capsule pregabalin (LYRICA) 50 mg capsule prochlorperazine (COMPAZINE) 10 mg tablet SUMAtriptan Succinate 6 mg/0.5 mL cartridge UNABLE TO FIND No current facility-administered medications for this visit. Past Medical HX: Past Medical History: Diagnosis Date Anxiety Arthritis Back pain Bipolar disorder ([facility]) Breathing problem Depression Diabetes mellitus ([facility]) Drug abuse ([facility]) Environmental allergies Eye problem Generalized headaches Headache(784.0) Heart disease History of substance abuse ([facility]) Hypertension Kidney disease Mental disorder Nervousness(799.21) Numbness Personality disorder ([facility]) Plantar fasciitis PTSD (post-traumatic stress disorder) Tarsal tunnel syndrome Past Surgical HX: Past Surgical History: Procedure Laterality Date BACK SURGERY CHOLECYSTECTOMY LAMINECTOMY L5-S1 Dr. Bowers 1999 SPINAL FUSION L5-S1 Dr. Child 2007 TUBAL LIGATION Past Social HX: Social History Socioeconomic History Marital status: Spouse name: Not on file Number of children: Not on file Years of education: Not on file Highest education level: Not on file Occupational History Not on file Tobacco Use Smoking status: Every Day Current packs/day: 0.00 Types: Cigarettes Last attempt to quit: 01/13/2009 Years since quittin.0 Smokeless tobacco: Never Tobacco comments: Vapes nicotine Substance and Sexual Activity Alcohol use: Yes Alcohol/week: 0.0 standard drinks of alcohol Comment: very rarely Drug use: No Sexual activity: Not on file Other Topics Concern Not on file Social History Narrative Not on file Social Determinants of Health [...] patient's current symptoms. Physical Exam: Vitals: BP 134/75 (BP Cuff Location: Right arm, BP Patient Position: Sitting, BP Cuff Sizes: Adult,regular) Pulse 75 Resp 16 SpO2 100% General: Patient is alert and oriented x3, no acute distress Neuro: Cranial nerves II-XII grossly intact and symmetric Cardio: ext wwp Lungs: no evidence of labored breathing Skin: clear, warm, dry and intact and no rashes, bruises or petechiae noted Musculoskeletal: Gait: patient ambulates independently, antalgic gait Lumbar Spine: tenderness elicited upon palpation, pos facet loading Sacroiliac joint: tenderness upon palpation, pos SUMIT Lower Extremity: strength reduced globally secondary to pain Assessment/Plan: 1. Spondylosis of 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 myelopathy Ms. Tia Rooney is a 48 y.o. 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 Patient has had at least 3 months of persistent severe pain that limits daily activity on a day-to-day basis. We discussed that they should continue conservative treatment including at home exerciseson a daily basis. The patient has axial pain and does not have a radiculopathy component associatedwith it. Patient also has radicular pain that has been treated previously with an epidural. We alsodiscussed proceeding with bilateral diagnostic lumbar medial branch blocks at L3L4, L4L5 (there areno previous surgeries, fusion or hardware at these levels.) If the patient has relief with two setsof bilateral lumbar medial branch blocks, then we will proceed with therapeutic thermal radiofrequen cy ablation at these levels. There are no current signs or symptoms of an infection, tumor, fracture, and/or deformity. Gerry MEHTA I spent a total of > 40 minutes on the date of this encounter meeting with the patient and reviewing documentation/coordinating care as described in the above note. documented in this encounter Plan of Treatment Upcoming Encounters Date Type Department Care Team (Late st Contact Info) Description 04/27/2024 14:30 EDT Telemedicine [facility] Neurology - [address] [place] [address] [place], [place] [address] Kj Gloria MD PhD 1 [facility], Level 2 [place] [phone] 04/30/2024 9:30 EDT Office Visit [facility] Interventional Pain [address] [place], [place] [phone] Catalino Garrett MD 62 [facility] [address] [place] [phone] 09/18/2024 11:00 EST Office Visit [facility] Bariatric Surgery - [place] [address] [place], [place] [address] Allen Thompson PA-C 111 [facility], [address] [place] [phone] documented as of this encounter Visit Diagnoses Diagnosis Spondylosis of 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
--- OUTSIDE RECORDS SUMMARY | 2024-04-22 23:45 | XMS_ITS | Encounter Summary ---
Author Organization [facility] Address [address] [place] [address] Care Team Providers Care Playground Supervisor Name Role Phone Juma Herrera MD Unavailable Curtis Burns MD Primary Care Provider [phone] Reason for Visit * Reason Onset Date Comments Appointment Related 01/21/2024 Encounter Details Date Type Department Care Team (Late st Contact Info) Description 01/21/[address] [facility] Neurology - [place] [address] [place] [phone] Kj Gloria MD PhD 1 [facility] 2 [place] [address] Appointment Related Social History Tobacco [...] encounter Miscellaneous Notes * Telephone Encounter - SantoshdeclansandraKizzy - 01/21/2024 1644 EDT 2nd attempted outreach; for Tia to schedule FUR via Reebonz Televideo with Dr. Gloria. Upon callback, please schedule from recall. Sent Feedo message as well. documented in this encounter Plan of Treatment Upcoming Encounters Date Type Department Care Team (Late st Contact Info) Description 04/27/2024 14:30 EDT Telemedicine [facility] Neurology - [address] [phone] Kj Gloria MD PhD 1 [facility] 2 [place] [phone] 04/30/2024 9:30 EDT Office Visit [facility] Interventional Pain 62 [facility] [place], [place] [phone] Catalino Garrett MD 62 [facility] [address] [place] [address] 09/18/2024 11:00 EST Office Visit [facility] Bariatric Surgery - [place] [address] [place], [place] [address] Allen Thompson PA-C [address] [place] [address], [facility], Level 5 [place] [phone] documented as of this encounter Visit Diagnoses Not on filedocumented in this encounter Care Teams Playground Supervisor Relationship Specialty Start Date End Date Curtis Burns MD 26 [facility] [address] [place] [address] PCP - General Emergency Medicine 07/06/22 Juma Herrera MD [address] [facility] [place] [address] 12/08/18 documented as of this encounter
--- OUTSIDE RECORDS SUMMARY | 2024-04-22 23:45 | XMS_ITS | Encounter Summary ---
Author Organization [facility] Address [address] [place] [address] Care Team Providers Care Payroll Representative Name Role Phone Juma Herrera MD Unavailable Curtis Burns MD Primary Care Provider [phone] Reason for Visit * Reason Comments Back Pain Facet injection * Prior Authorization (Routine) - Authorization Not Required Specialty Diagnoses / Procedures [facility] Referred To Contact Pain Medicine Diagnoses Spondylosis without myelopathy or radiculopathy, lumbosacral region L3L4, L4L5 diagnostic facet, PA Pending Procedures [place] NJX DX/THER AGT PVRT FACET JT LMBR/SAC 1 LEVEL [place] NJX DX/THER AGT PVRT FACET JT LMBR/SAC 2ND LEVEL PAIN CLINIC PROCEDURE [facility] 62 [facility] [place] [address] Catalino Garrett MD 62 [facility] [address] [place] [address] Referral ID Status Reason Start Date Expiration Date Visits Requested Visits Authorized [id number] Authorization Not Required 1 1 Encounter Details Date Type Department Care Team (Latest Contact Info) Description 03/11/2024 13:30 EDT Office Visit [facility] Interventional Pain 62 [facility] [place] [address] Catalino Garrett MD 62 [facility] [address] [place] [address] Spondylosis of 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 myelopathy [...] Sign Reading Time Taken Comments Blood Pressure 115/68 03/11/2024 1338 EDT Pulse 75 03/11/2024 1338 EDT Temperature - - Respiratory Rate 16 03/11/2024 1338 EDT Oxygen Saturation 100% 03/11/2024 1245 EDT Inhaled Oxygen Concentration - - Weight [...] this encounter Patient Instructions * Patient Instructions* Mouna Myrick RN - 03/11/2024 13:30 EDT [facility] [address] [phone] Patient Instructions You have had your bilateral diagnostic facet procedure. The purpose of this procedure has been [...] = no relief and 100% = total relief). Separate the pressure and tightness that we caused you from your regular pain and see what your relief is. Call us back tomorrow with this information. Procedure end time: 1:35 pm Pain relief start time Returned to baseline [...] None Outcomes: independent and verbalized understanding Signature: MOUNA MYRICK RN documented in this encounter Progress Notes * Vickie Stiles MA - 03/11/2024 1330 EDT [facility] Rooming Note Does patient have a Tromper? yes Is patient NPO? (Solids since midnight [...] age) Is there a chance current ? N/A Do you have any type of implanted device? Spinal cord stim Vaccination: Have you had or are you planning to have a vaccination in the 2 weeks? no Other: no * Vickie Stiles MA - 03/11/2024 1330 EDT Oswestry Low Back Disability Questionnaire Pain Intensity Pain killers give very little relief from pain (4) Personal Care (e.g. Washing, Dressing) I need some help but manage most of my personal care (3) Lifting I can lift very light weights (4) Walking Pain prevents me walking more than ?? mile (3) Sitting Pain prevents me from sitting more than 10 minutes (4) Standing Pain prevents me from standing for more than 30 minutes (3) Sleeping Pain prevents me from sleeping at all (5) Social Life Pain has restricted my social life and I do not go out as often (3) Travelling Pain is bad, but I manage journeys over 2 hours (2) Employment/Homemaking I can perform most of my homemaking/ job duties, but pain prevents me from performing more physically stressful activities (e.g. lifting, vacuuming) (2) * Catalino Garrett MD - 03/11/2024 1330 EDT Patient Name: Tia Rooney : 1975 Date of Service: 03/11/24 Flooring Mechanic: Gerry MEHTA Telephone Service Adviser: None Procedure: diagnostic lumbar facet procedure at L3L4, L4L5 Interval History: Details of the current complaint are thoroughly described in the notes from my last encounter. The patient reports no recent changes in the character, quality, or distribution of the pain. There are no recent onset of new associated symptoms such as changes in strength, sensation, or bladder control. All previous medical records including current medications, anticoagulation status, any signs of current infection, and new imaging were reviewed. Injection History: 03/11/24: diagnostic lumbar facet procedure at L3L4, L4L5 Allergies: Allergies Allergen Reactions Adhesive Other (See Comments) Skin irritation, paper tape ok Bee Sting [Hymenoptera Allergenic Extract] Swelling Fever and vomiting Codeine Hives and Nausea And Vomiting Other - See Comments Nausea And Vomiting Root beer Pt says she can sometimes drink it Review of Systems: Negative for any fever, chills, nausea/vomiting, headaches, chest pain, palpitations, shortness of breath, bladder/bowel incontinence. No easy bruising, bleeding, anti-coagulation or known recent infections. Physical Exam: Vitals: BP 116/61 (BP Cuff Location: Left arm, BP Patient Position: Sitting, BP Cuff Sizes: Adult, large) Pulse 74 Resp 17 SpO2 100% General: Patient is alert and oriented, no acute distress Lungs: symmetric chest rise, no evidence of labored breathing Skin: clear, warm, dry and intact and no rashes, bruises or petechiae noted Exam otherwise unchanged from prior Assessment: 1. Spondylosis of 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 myelopathy Plan: Ms. Tia Rooney is a 48 y.o. female that presents to the pain clinic to undergo diagnostic lumbar facet procedure in regards to her chronic back pain. All risks, benefits, and alternatives were thoroughly explained to Ms. Tia Rooney who verbally communicated understanding of the management plan. Proceed with diagnostic facet procedure at levels note above Follow up: will call tomorrow for results of this diagnotic procedure Procedure: The patient gave informed written consent to proceed with this procedure following a detailed discussion of the risks and benefits associated with lumbar facet joint injection including but not limited to infection, bleeding, intrathecal injection, allergic reaction, further exacerbation of current symptoms, neurological injury, and lack of efficacy.. The patient was then placed in the prone position, the skin over the lumbosacral area was prepped with chlorhexadine, and the site was marked anddraped with sterile towels. Strict sterile technique was maintained throughout the procedure. A time out was performed with full staff present to identify the patient, verify the procedure being performed, and review allergies. Flouroscopy was used to identify the lumbar anatomy and align the facet joints. A 22 guage 5.0 inchspinal needle was inserted under fluoroscopic guidance using coaxial technique until contact was made on the posterior elements of the vertebrae corresponding to appropriate nerve and joint anatomy. After negative aspiration, each site was injected with 0.4 mls 0.5% Bupivacaine. There were no paresthesias during needle placement and aspiration was negative at all times. The patient tolerated the procedure well (with expected amount of pain from procedure.) There were no apparent complications, and she was discharged in stable condition. Written and verbal discharge instructions were reviewed with the patient prior to discharge. Gerry MEHTA * Mouna Myrick RN - 03/11/2024 1330 EDT ATTENTION: An active Time-Out initiated by [...] 04/27/2024 14:30 EDT Telemedicine [facility] Neurology - [address] [place] 1 [place], [place] [phone] Kj Gloria MD PhD 1 [facility] Level 2 [place] [phone] 04/30/2024 9:30 EDT Office Visit [facility] Interventional Pain [address] [place], [place] [phone] Catalino Garrett MD 62 [facility] [address] [place] [address] 09/18/2024 11:00 EST Office Visit [facility] Bariatric Surgery [facility] [address] [place], [place] [address] Allen Thompson PA-C [address] [place] [address], [address] [place] [phone] documented as of this encounter Visit Diagnoses Diagnosis Spondylosis of 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 myelopathy- Primary documented in this encounter Administered Medications Inactive Administered Medications - up to 3 most recent administrations Medication Order MAR Action Action Date Dose Rate Site BUPivacaine (PF) (MARCAINE) 0.5% injection 2 mL 2 mL, intra-articular, NOW X1, 1 dose, On 03/11/24 at 1345, Routine Given by Other 03/11/2024 13:36 EDT 2 mL documented in this encounter Care Teams Payroll Representative Relationship Specialty Start Date End Date Curtis Burns MD 26 [facility] [address] [place] [address] PCP - General Emergency Medicine 07/06/22 Juma Herrera MD [address] [facility] [place] [phone] 12/08/18 documented as of this encounter
--- OUTSIDE RECORDS SUMMARY | 2024-04-22 23:45 | XMS_ITS | Encounter Summary ---
Author Organization [facility] Address [address] [place] [address] Care Team Providers Care Microwave Remote Sensing Scientist Name Role Phone Juma Herrera MD Unavailable Curtis Burns MD Primary Care Provider Encounter Details Date Type Department Care Team (Late st Contact Info) Description 08/01/2023 Telephone [facility] - [place] [address] [place] [phone] Kj Gloria MD PhD [address] [place] [address] [address] [place] [phone] Social History Tobacco Use Types Packs/Day Years [...] Dispensed Refills Start Date End Da te erenumab-aooe (AIMOVIG AUTOINJECTOR) 140 mg/mL auto-injector Inject 1 mL into the skin every 28 days. 3 mL 3 08/02/2023 documented in this encounter Miscellaneous Notes * Telephone Encounter - Shana Ordoñez - 08/01/2023 1641 EST Medication Refill Request Medication: Aimovig Patient needs medication by: 08/09 Scheduled outreach date: 08/01 Pharmacy: [facility] ([facility]) [address] [place] [address] appt: Visit date not found documented in this encounter Plan of Treatment Upcoming Encounters Date Type Department Care Team ([facility] Contact Info) Description 04/27/2024 14:30 EDT Telemedicine [facility] - [address] [phone] Kj Gloria MD PhD 1 [facility], Level 2 [place] [phone] 04/30/2024 9:30 EDT Office Visit [facility] Interventional Pain 62 [facility] [place] [address] Catalino Garrett MD 62 [facility] [address] [place] [address] 09/18/2024 11:00 EST Office Visit [facility] Bariatric Surgery - [place] [address] [place], [place] [address] Allen Thompson PA-C 111 [facility], Level 5 [place] [address] documented as of this encounter Visit Diagnoses Not on filedocumented in this encounter Discontinued Medications Medication Sig Discontinue Reason Start Date End Da te erenumab-aooe (AIMOVIG AUTOINJECTOR) 140 mg/mL auto-injector Inject 1 mL into the skin every 28 days. Reorder 05/02/2023 08/02/2023 documented as of this encounter Care Teams Microwave Remote Sensing Scientist Relationship Specialty Start Date End Date Curtis Burns MD 26 [facility] [address] [place] [address] PCP - General Emergency Medicine 07/06/22 Juma Herrera MD [address] [facility] [address] 12/08/18 documented as of this encounter
--- OUTSIDE RECORDS SUMMARY | 2024-04-22 23:45 | XMS_ITS | Encounter Summary ---
Author Organization [facility] Address [address] [place] [address] Care Team Providers Care Particle Board Supervisor Name Role Phone Juma Herrera MD Unavailable Curtis Burns MD Primary Care Provider [phone] Reason for Visit * Reason Onset Date Comments Appointment Related 05/13/2023 Encounter Details Date Type Department Care Team (Late st Contact Info) Description 05/13/2023 Telephone [facility] Neurology - [place] [address] [place] [phone] Kj Gloria MD PhD 1 [facility] 2 [place] [address] Appointment Related Social History Tobacco [...] encounter Miscellaneous Notes * Telephone Encounter - Loretta Degroot - 05/16/2023 1309 EDT Tia called back this afternoon in regards to the message that she received about scheduling a follow up with Dr. Gloria. She has been scheduled for Saturday, May 27, 2023 at 11:15 through video. Appointment was scheduled off the recall list. Thank you * Telephone Encounter - Candida Lucia - 05/13/2023 1005 EDT LM for Tia to call and schedule a FUR via My Chart Televideo with Dr. Gloria. Please schedule off RECALL documented in this encounter Plan of Treatment Upcoming Encounters Date Type Department Care Team (Late st Contact Info) Description 04/27/2024 14:30 EDT Telemedicine [facility] Neurology - [place] 1 [place], [place] [address] Kj Gloria MD PhD 1 [facility], Level 2 [place] [phone] 04/30/2024 9:30 EDT Office Visit [facility] Interventional Pain [address] [place], [place] [phone] Catalino Garrett MD [address] [facility] [address] [place] [address] 09/18/2024 11:00 EST Office Visit [facility] Bariatric Surgery - [place] [address] [place] [address] Allen Thompson PA-C 111 [facility], [facility] 5 [place] [address] documented as of this encounter Visit Diagnoses Not on filedocumented in this encounter Care Teams Particle Board Supervisor Relationship Specialty Start Date End Date Curtis Burns MD 26 [facility] [address] [place], [place] [phone] PCP - General Emergency Medicine 07/06/22 Juma Herrear MD [address] [facility] [address] 12/08/18 documented as of this encounter
--- OUTSIDE RECORDS SUMMARY | 2024-04-22 23:45 | XMS_ITS | Encounter Summary ---
Author Organization [facility] Address [address] [place] [address] Care Team Providers Care Needle Loom Setter Name Role Phone Juma Herrera MD Unavailable Curtis Burns MD Primary Care Provider [phone] Reason for Visit * Reason Comments Neck Pain YSABEL * Prior Authorization (Routine) - Authorization Not Required Specialty Diagnoses / Procedures [facility] Referred To Contact Pain Medicine Diagnoses Sacroiliitis, not elsewhere classified (HCC-CMS) Cervical epidural steroid injections at C7-T1 Procedures NE NJX DX/THER SBST INTRLMNR CRV/THRC W/IMG GDN PAIN CLINIC PROCEDURE [facility] 62 [facility] [place] [address] Catalino Garrett MD [address] [place] [phone] Referral ID Status Reason Start Date Expiration Date Visits Requested Visits Authorized [id number] Authorization Not Required 1 1 Encounter Details Date Type Department Care Team (Latest Contact Info) Description 02/07/2024 13:00 EDT Office Visit [facility] Interventional Pain [address] [place] [address] Catalino Garrett MD 62 [facility] [address] [place] [address] Radiculopathy, cervical region (Primary Dx) Social History Tobacco Use Types [...] Sign Reading Time Taken Comments Blood Pressure 142/96 02/07/2024 1323 EDT Pulse 80 02/07/2024 1323 EDT Temperature - - Respiratory Rate 16 02/07/2024 1323 EDT Oxygen Saturation 98% 02/07/2024 1242 EDT Inhaled Oxygen Concentration - - Weight [...] this encounter Patient Instructions * Patient Instructions* Ivelisse Sousa RN - 02/07/2024 13:00 EDT [facility] [address] [phone] Patient Instructions You have had your cervical [...] continued numbness or weakness of the arms or changesin your bladder or bowel functions, please call our office immediately. Instructions for follow-up If you have any questions about your block, please call Patient Education Topic: Method: Handout and Verbal Taught to: Patient Barriers: None Outcomes: independent and verbalized understanding Signature: Ivelisse Hernandez RN documented in this encounter Progress Notes * Vickie Stiles MA - 02/07/2024 1300 EDT [facility] Rooming Note Does patient have a Channeling Machine Operator? yes Is patient NPO? (Solids since midnight & liquids for 4 hrs) Yes- sip of water this AM Blood Thinners: Is patient on Blood Thinners? [...] the 2 weeks? no Other: no * Ivelisse Sousa RN - 02/07/2024 1300 EDT ATTENTION: An active Time-Out initiated by [...] and matches planned procedure and site marking [Verified ] Active verbal communication by the entire procedural team was completed. * Catalino Garrett MD - 02/07/2024 1300 EDT Patient Name: Tia Rooney : 1975 Date of Service: 02/07/24 Chief Complaint: Chief Complaint Patient presents with Neck Pain YSABEL Robot Technician: Dr. Garrett Procedure: Cervical epidural steroid injections at C7-T1 [...] and new imaging were reviewed. Injection History: 02/07/24: C7-T1 [id number] 11/19/2023: sacroiliac joint injection [...] fusion (2006) Physical Exam: Vitals: BP (!) 142/96 (BP Cuff Location: Left arm, BP Patient Position: Sitting, BP Cuff Sizes: Adult, regular) Pulse 80 Resp 16 SpO2 98% General: Patient is alert and oriented, no acute distress. Lungs: symmetric chest rise, no evidence of labored breathing Skin: clear, warm, dry and intact and no rashes, bruises or petechiae noted SI: + TTP, + compression and + bilateral FABERs Assessment: 1. Radiculopathy, cervical region Plan: Ms. Tia Rooney is a 48 y.o. female that presents to the pain clinic to undergo cervical epidural steroid injection. All risks, benefits, and alternatives were thoroughly explained to Ms. Tia Mazariegos who verbally communicated understanding of the management plan. Followup: Has scheduled appointments for diagnostic facet procedures and RFA PROCEDURE: The patient gave informed written consent [...] After negative aspiration, 10 mg Dexamethasone and 1 ml Normal Saline were injected. The needle was then flushed and withdrawn. The patient tolerated the procedure well, there were no apparent complications, and she was discharged in stable condition. Written and verbal discharge instructions were reviewed with the patient prior to discharge. Fluoroscopic images were saved during the procedure Catalino Garrett MD documented in this encounter Plan of Treatment Upcoming Encounters Date Type Department Care Team (Late st Contact Info) Description 04/27/2024 14:30 EDT Telemedicine [facility] Neurology - [address] [place] 1 [place], [place] [phone] Kj Gloria MD PhD 1 [facility], Level 2 [place] [phone] 04/30/2024 9:30 EDT Office Visit [facility] Interventional Pain 62 [facility] [place] [address] Catalino Garrett MD 62 [facility] [address] [place] [phone] 09/18/2024 11:00 EST Office Visit [facility] Bariatric Surgery - [place] [address] [place], [place] [address] Allen Thompson PA-C 111 [facility], [facility], Level [address] [place] [address] documented as of this encounter Visit Diagnoses Diagnosis Radiculopathy, cervical region- Primary Brachial neuritis or radiculitis nos documented in this encounter Administered Medications Inactive Administered Medications - up to 3 most recent administrations Medication Order MAR Action Action Date Dose Rate Site dexAMETHasone (DECADRON) injection 10 mg 10 mg, neural-axial, NOW X1, 1 dose, On Sat02/07/24 at 1330, Routine Given by Other 02/07/2024 13:13 EDT 10 mg Iohexol (OMNIPAQUE 180) injection 2 mL 2 mL, neural-axial, NOW X1, 1 dose, On Sat02/07/24 at 1330, Routine Given by Other 02/07/2024 13:13 EDT 2 mL documented in this encounter Care Teams Needle Loom Setter Relationship Specialty Start Date End Date Curtis Burns MD 26 [facility] [address] [place] [address] PCP - General Emergency Medicine 07/06/22 Juma Herrera MD [address] [facility] [place] [phone] 12/08/18 documented as of this encounter
--- OUTSIDE RECORDS SUMMARY | 2024-04-22 23:45 | XMS_ITS | Encounter Summary ---
Author Organization [facility] Address [address] [place] [address] Care Team Providers Care Endoscopy Rn Name Role Phone Juma Herrera MD Unavailable Curtis Burns MD Primary Care Provider [phone] Encounter Details Date Type Department Care Team (Latest Contact Info) Description 07/08/2023 Specialty Pharmacy [facility] 1 [place], [place] [phone] Jj Verduzco [facility] Refill Coordination Outreach (1 time occurrence) for Headache Social [...] as of this encounter Progress Notes * Hortencia Rehman - 07/08/2023 1022 EST Specialty Pharmacy Documentation Medication: [facility]: [facility] Reason for Encounter: Documentation Notes: Outreach moved incorrectly Follow up date: 07/30/2023 Follow up reason: Outreach documented in this encounter Plan of Treatment Upcoming Encounters Date Type Department Care Team (Late st Contact Info) Description 04/27/2024 14:30 EDT Telemedicine [facility] Neurology - [address] [id number] Kj Gloria MD PhD 1 [facility] 2 [place] [phone] 04/30/2024 9:30 EDT Office Visit [facility] Interventional Pain [address] [facility] [place], [place] [phone] Catalino Garrett MD 62 [facility] [address] [place] [address] 09/18/2024 11:00 EST Office Visit [facility] Bariatric Surgery - [place] [address] [place] [address] Allen Thompson PA-C 111 [facility], Level 5 [place] [phone] documented as of this encounter Visit Diagnoses Not on filedocumented in this encounter Care Teams Endoscopy Rn Relationship Specialty Start Date End Date Curtis Burns MD 26 [facility] [address] [place] [address] PCP - General Emergency Medicine 07/06/22 Juma Herrera MD [address] [facility] [place] [address] 12/08/18 documented as of this encounter
--- OUTSIDE RECORDS SUMMARY | 2024-04-22 23:45 | XMS_ITS | Encounter Summary ---
Author Organization [facility] Address [address] [place] [address] Care Team Providers Care Buyer Liaison Name Role Phone Juma Herrera MD Unavailable Curtis Burns MD Primary Care Provider Reason for Visit * Reason Onset Date Comments Medications Refill 06/10/2023 Encounter Details Date Type Department Care Team (Late st Contact Info) Description 06/10/2023 Refill [facility] Neurology - [address] [id number] Kj Gloria MD PhD 1 [facility] 2 [place] [address] Medications Refill Social History Tobacco Use Types Packs/Day Years [...] as of this encounter Progress Notes * Becki Major RPH - 06/10/2023 1128 EDT encounter opened in error. documented in this encounter Plan of Treatment Upcoming Encounters Date Type Department Care Team (Late st Contact Info) Description 04/27/2024 14:30 EDT Telemedicine [facility] Neurology - [address] [address] Kj Gloria MD PhD 1 [facility] Level 2 [place] [phone] 04/30/2024 9:30 EDT Office Visit [facility] Interventional Pain [address] [place] [address] Catalino Garrett MD 62 [facility] [address] [place] [address] 09/18/2024 11:00 EST Office Visit [facility] Bariatric Surgery - [place] [address] [place], [place] [address] Allen Thompson PA-C 111 [facility], Level 5 [place] [phone] documented as of this encounter Visit Diagnoses Not on filedocumented in this encounter Care Teams Buyer Liaison Relationship Specialty Start Date End Date Curtis Burns MD 26 [facility] [address] [place] [address] PCP - General Emergency Medicine 07/06/22 Juma Herrera MD [address] [facility] [place] [phone] 12/08/18 documented as of this encounter
--- OUTSIDE RECORDS SUMMARY | 2024-04-22 23:45 | XMS_ITS | Encounter Summary ---
Author Organization [facility] Address [address] [place] [address] Care Team Providers Care Analog Design Engineer Name Role Phone Juma Herrera MD Unavailable Curtis Burns MD Primary Care Provider [phone] Encounter Details Date Type Department Care Team (Latest Contact Info) Description 07/02/2023 7:53 EDT - 07/02/2023 23:59 EDT Hospital Encounter [facility] Xray [address] [place], [place] [phone] Discharge Disposition: Home or Self Care Social [...] ORAL) Take by mouth 3 times daily. busPIRone (BUSPAR) 30 mg tablet Take [...] with 60mg cap to =90mg dose 05/16/2011 MAGNESIUM ORAL Take 500 mg by mouth [...] FATTY ACIDS) 300-1,000 mg capsule daily. 10/09/2022 pregabalin (LYRICA) 50 mg capsule Take 2 Caps by mouth 3 times daily. 180 Cap 3 08/21/2012 prochlorperazine (COMPAZINE) 10 mg tabletIndications:S/P laparoscopic sleeve gastrectomy,Gastroesop hageal reflux disease without esophagitis Take 1 Tab by mouth every 6 hours as needed for Nausea 60 Tab 0 08/31/2015 SUMAtriptan Succinate 6 mg/0.5 mL cartridge Inject 6 mg into the skin as needed (migraine). Take as directed. 6 mL 11 02/21/2021 erenumab-aooe (AIMOVIG AUTOINJECTOR) 140 mg/mL auto-injector Inject 1 mL into the skin every 28 days. 3 mL 05/02/2023 08/02/2023 omeprazole (PRILOSEC) 40 mg capsule Take 1 Capsule by mouth daily. 90 Capsule 3 09/21/2022 09/20/2023 documented as of this encounter Discharge Disposition Disposition Code Departure Means Destination Home or Self Care documented in this encounter Plan of Treatment Upcoming Encounters Date Type Department Care Team (Late st Contact Info) Description 04/27/2024 14:30 EDT Telemedicine [facility] Neurology - [address] [address] Kj Gloria MD PhD 1 [facility] Level 2 [place] [phone] 04/30/2024 9:30 EDT Office Visit [facility] Interventional Pain 62 [facility] [place] [address] Catalino Garrett MD 62 [facility] [address] [place] [address] 09/18/2024 11:00 EST Office Visit [facility] Bariatric Surgery - [place] [address] [place] [address] Allen Thompson PA-C 111 [facility], Level 5 [place] [phone] documented as of this encounter Procedures Procedure Name Priority Date/Time Associated Diagnosis Comments PAIN CLINIC FL LUMBAR INJECTION Routine 07/02/2023 11:19 EDT documented in this encounter Results * PAIN CLINIC FL LUMBAR INJECTION (07/02/2023 11:19 EDT) Narrative 07/02/2023 11:19 EDT This is a non-reportable exam. Catalino Garrett MD IMG OTHER IMAGING OR DERABLES documented in this encounter Visit Diagnoses Not on filedocumented in this encounter Care Teams Analog Design Engineer Relationship Specialty Start Date End Date Curtis Burns MD 26 [facility] [address] [place] [address] PCP - General Emergency Medicine 07/06/22 Juma Herrera MD [address] [place] [address] 12/08/18 documented as of this encounter
--- OUTSIDE RECORDS SUMMARY | 2024-04-22 23:45 | XMS_ITS | Encounter Summary ---
Author Organization [facility] Address [address] [place] [address] Care Team Providers Care Showroom Sales Assistant Name Role Phone Juma Herrera MD Unavailable Curtis Burns MD Primary Care Provider [phone] Encounter Details Date Type Department Care Team (Latest Contact Info) Description 01/29/[address] [facility] [address] [place] [phone] Raymundo Carey [facility] Refill Coordination Outreach for Headache Social History [...] Info) Description 04/27/2024 14:30 EDT Telemedicine [facility] Neurology - [facility] 1 [place], [place] [address] Kj Gloria MD PhD 1 [facility] Level 2 [place] [phone] 04/30/2024 9:30 EDT Office Visit [facility] Interventional Pain 62 [facility] [place], [place] [phone] Catalino Garrett MD 62 [facility] [address] [place] [address] 09/18/2024 11:00 EST Office Visit [facility] Bariatric Surgery - [place] [address] [place], [place] [phone] Allen Thompson PA-C 111 [facility], Level 5 [place] [phone] documented as of this encounter Visit Diagnoses Not on filedocumented in this encounter Care Teams Showroom Sales Assistant Relationship Specialty Start Date End Date Curtis Burns MD 26 [facility] [address] [place] [address] PCP - General Emergency Medicine 07/06/22 Juma Herrera MD [address] [facility] [place] [phone] 12/08/18 documented as of this encounter
--- OUTSIDE RECORDS SUMMARY | 2024-04-22 23:45 | XMS_ITS | Encounter Summary ---
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, L4L5 diagnostic facet, PA Pending (handed instructions at check out) Procedures VA NJX DX/THER AGT PVRT FACET JT LMBR/SAC 1 LEVEL VA NJX DX/THER AGT PVRT FACET JT LMBR/SAC 2ND LEVEL PAIN CLINIC PROCEDURE [facility] 62 [facility] [place] [address] Catalino Garrett MD 62 [facility] [address] [place] [phone] Referral ID Status Reason Start Date Expiration Date Visits Requested Visits Authorized [id number] Authorization Not Required 1 1 Encounter Details Date Type Department Care Team (Latest Contact Info) Description 04/09/2024 13:30 EDT Office Visit [facility] Interventional Pain [address] [place] [address] Catalino Garrett MD 62 [facility] [address] [place] [address] Spondylosis of 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 [...] EDT Pulse 88 04/09/2024 1247 EDT Temperature - - Respiratory Rate 16 04/09/2024 1411 EDT Oxygen [...] this encounter Patient Instructions * Patient Instructions* Mohini Pollock RN - 04/09/2024 13:30 EDT [facility] [address] [phone] Medial Branch Block Patient Instructions You underwent a procedure called MEDIAL BRANCH BLOCK today. This is a diagnostic test to determine if this is the cause of your pain. Your results from today???s injection will help us guide further care for you. Please call us back tomorrow with your hours and % of relief. Following this procedure, continue to be active for the Remainder of the day and maintain your usual daily routine. Do not drive or operate any motorized vehicles or equipment. Keep track of how long you received relief as well as what percentage of pain relief immediately following the procedure. It can take 30-60 minutes for the long acting local anesthetic to start to work. Separate the needle discomfort, pressure and tightness caused by this procedure from your regular pain. This diagnostic procedure is ONLY intended to last for a number of hours, not days or weeks.Please contact our office the day after your Medial Branch Block with your results. PROCEDURE END TIME: (nurse) 2:10 PAIN RELIEF START TIME: PAIN RELIEF END TIME: HOURS OF RELIEF PERCENTAGE OF RELIEF (0-100%) ADDITIONAL MEDIAL BRANCH BLOCK INSTRUCTIONS Do not operate a automobile or other motorized equipment for the remainder of the day today. You may resume your normal activities or rest tomorrow. If you feel sore where the needles were placed, please use ice to the area for up to 20 minutes at a time. Do not use heat, as this may cause swelling. Once your pain has returned you may resume anti-inflammatory medication (NSAIDs: ibuprofen, Advil, Motrin, alive). NSAIDs and ice will help with any increase in pain you may have after your block has worn off. If you have a fever or any redness or other signs of infection at the injection sites after today, please contact us immediately. Patient Education Topic: Method: Handout and Verbal Taught to: Patient Barriers: None Outcomes: independent and verbalized understanding Signature: Mohini Brown RN documented in this encounter Plan of Treatment Upcoming Encounters Date Type Department Care Team (Late st Contact Info) Description 04/27/2024 14:30 EDT Telemedicine [facility] Neurology - S [address] [address] Kj Gloria MD PhD 1 [facility], Level 2 [place] [phone] 04/30/2024 9:30 EDT Office Visit [facility] Interventional Pain [address] [place], [place] [phone] Catalino Garrett MD [address] [facility] [address] [place] [address] 09/18/2024 11:00 EST Office Visit [facility] Bariatric Surgery - [place] [address] [place], [place] [phone] Allen Thompson PA-C 111 [facility], Level 5 [place] [phone] documented as of this encounter Visit Diagnoses Diagnosis Spondylosis of 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 myelopathy- Primary documented in this encounter Administered Medications Inactive Administered Medications - up to 3 most recent administrations Medication Order MAR Action Action Date Dose Rate Site BUPivacaine (PF) (MARCAINE) 0.5% injection 1.6 mL 1.6 mL, chelsea-neural, NOW X1, 1 dose, On Karen 04/09/24 at 1430, Routine Given by Other 04/09/2024 14:09 EDT 1.6 mL documented in this encounter Orders Medications Ordered That Jakob ht Not Have Been Administered Count Last Ordered Date First Ordered Date BUPivacaine (PF) (MARCAINE) 0.5% injection 1.6 mL 1 04/09/2024 documented in this encounter Care Teams Body Shop Manager Relationship Specialty Start Date End Date Curtis Burns MD [address] [place], [place] [phone] PCP - General Emergency Medicine 07/06/22 Juma Herrera MD [address] [facility] [place] [place] [address] (work) 12/08/18 documented as of this encounter
--- OUTSIDE RECORDS SUMMARY | 2024-04-22 23:45 | XMS_ITS | Encounter Summary ---
Author Organization [facility] Address [address] [place] [address] Care Team Providers Care Door Technician Name Role Phone Juma Herrera MD Unavailable Curtis Burns MD Primary Care Provider [phone] Reason for Visit * Reason Onset Date Comments Appointment Related 06/19/2023 Encounter Details Date Type Department Care Team ([facility] st Contact Info) Description 06/19/2023 Telephone [facility] Neurology - [place] [address] [place] [phone] Kj Gloria MD PhD 1 [facility] 2 [place] [address] Appointment Related Social History Tobacco [...] encounter Miscellaneous Notes * Telephone Encounter - Shane Benitez - 06/20/2023 1407 EDT Tia calls in to schedule televideoFUR with Dr. Gloria on 07/15 at 2pm. * Telephone Encounter - Raysa Law - 06/19/2023 1019 EDT LM for Tia to call and schedule a FUR via My Chart Televideo with Dr. Gloria. Please schedule off RECALL documented in this encounter Plan of Treatment Upcoming Encounters Date Type Department Care Team (Late st Contact Info) Description 04/27/2024 14:30 EDT Telemedicine [facility] Neurology - [address] [phone] Kj Gloria MD PhD 1 [facility], Level 2 [place] [phone] 04/30/2024 9:[address] [facility] Interventional Pain [address] [place] [address] Catalino Garrett MD 62 [facility] [address] [place] [address] 09/18/2024 11:00 EST Office Visit [facility] Bariatric Surgery - [place] [address] [place] [address] Allen Thompson PA-C [address] [place] [address], Level [address] [place] [address] documented as of this encounter Visit Diagnoses Not on filedocumented in this encounter Care Teams Door Technician Relationship Specialty Start Date End Date Curtis Burns MD 26 [facility] [address] [place] [address] PCP - General Emergency Medicine 07/06/22 Juma Herrera MD [address] [facility] [place] [address] 12/08/18 documented as of this encounter
--- OUTSIDE RECORDS SUMMARY | 2024-04-22 23:46 | XMS_ITS | Encounter Summary ---
Author Organization [facility] Address [address] [place] [address] Care Team Providers Care Net Mender Name Role Phone Juma Herrera MD Unavailable Curtis Burns MD Primary Care Provider [phone] Encounter Details Date Type Department Care Team (Late st Contact Info) Description 02/11/2023 Specialty Pharmacy [facility] Amb[facility] - [address] [address] Jj Verduzco, [facility] Social History Tobacco Use Types Packs/Day Years [...] Description 04/27/2024 14:30 EDT Telemedicine [facility] Neurology - [facility] 1 [place], [place] [address] Kj Gloria MD PhD 1 [facility] Level 2 [place] [phone] 04/30/2024 9:30 EDT Office Visit [facility] Interventional Pain 62 [facility] [place], [place] [phone] Catalino Garrett MD 62 [facility] [address] [place] [address] 09/18/2024 11:00 EST Office Visit [facility] Bariatric Surgery - [place] [address] [place], [place] [phone] Allen Thompson, PA-C 111 [facility], Level [address] [place] [phone] documented as of this encounter Visit Diagnoses Not on filedocumented in this encounter Care Teams Net Mender Relationship Specialty Start Date End Date Curtis Burns MD 26 [facility] [address] [place], [place] [address] PCP - General Emergency Medicine 07/06/22 Juma Herrera MD [address] [facility] [address] 12/08/18 documented as of this encounter
--- OUTSIDE RECORDS SUMMARY | 2024-04-22 23:46 | XMS_ITS | Encounter Summary ---
Author Organization [facility] Address [address] [place] [address] Care Team Providers Care Idea Man Name Role Phone Juma Herrera MD Unavailable Curtis Burns MD Primary Care Provider [phone] Encounter Details Date Type Department Care Team (Latest Contact Info) Description 02/08/2023 11:30 EDT Ancillary Procedure [facility] Sports Medicine Program - [place] [address] Chronic right shoulder pain Social History Tobacco Use Types Packs/Day Years [...] Description 04/27/2024 14:30 EDT Telemedicine [facility] Neurology - [address] [place] 1 [place], [place] [address] Kj Gloria MD PhD 1 [facility] Level 2 [place] [phone] 04/30/2024 9:30 EDT Office Visit [facility] Interventional Pain 62 [facility] [place] [address] Catalino Garrett MD 62 [facility] [address] [place] [address] 09/18/2024 11:00 EST Office Visit [facility] Bariatric Surgery - [place] [address] [place], [place] [address] Allen Thompson, PALizettC 111 [facility], Level [address] [place] [phone] documented as of this encounter Procedures Procedure Name Priority Date/Time Associated Diagnosis Comments POC MSK US SHOULDER Routine 02/08/2023 1 6:11 EDT Chronic right shoulder pain documented in this encounter Results * POC MSK US SHOULDER (02/08/2023 16:11 EDT) Narrative [facility] POINT OF CARE - 02/08/2023 16:11 EDT This is a non-reportable exam. Jun Balbuena MD IMG US POC ORDERAB LES [facility] POINT OF CARE documented in this encounter Visit Diagnoses Diagnosis Chronic right shoulder pain Pain in joint, shoulder region documented in this encounter Care Teams Idea Man Relationship Specialty Start Date End Date Curtis Burns MD 26 [facility] [address] [place] [address] PCP - General Emergency Medicine 07/06/22 Juma Herrera MD [address] [facility] [place] [address] 12/08/18 documented as of this encounter
--- OUTSIDE RECORDS SUMMARY | 2024-04-22 23:46 | XMS_ITS | Encounter Summary ---
Author Organization [facility] Address [address] [place] [address] Care Team Providers Care Bulb Assembler Name Role Phone Juma Herrera MD Unavailable Curtis Burns MD Primary Care Provider [phone] Reason for Visit * Reason Onset Date Comments Paperwork request 01/22/2023 Encounter Details Date Type Department Care Team (Late st Contact Info) Description 01/22/2023 Telephone [facility] Spine Program - [address] [address] Kj Child MD 192 [facility] [place] [address] Paperwork request Social History Tobacco Use Types Packs/Day Years [...] encounter Miscellaneous Notes * Telephone Encounter - Pretty Benavidez - 02/06/2023 1605 EDT Reason for Call: Paperwork request Summary: Sent 12/11/22 note and called [employer] And confirmed that this note was all that was missing.Provided them a call back # incase the fax didn't go through. Or if additional info is needed. Pretty Benavidez 02/06/2023 16:05 * Telephone Encounter - Pretty Benavidez - 02/06/2023 1555 EDT Reason for Call: Paperwork request Summary: Pt called back very upset stated that DIP[facility] received everything but the signed note for12/11/22 stating why she needs the brace Author is faxing note to provided fax # attempted to reachout to [facility] for clarification on what documentation is missing. Appointment Offered? N/A Pretty Benavidez 02/06/2023 15:55 * Telephone Encounter - Loida Rojo - 02/05/[address] Child notes re-faxed to [facility] at [phone]. * Telephone Encounter - Miguel Crandall MA - 01/25/2023 1615 EDT Paperwork signed by Dr Child and faxed to [facility] * Telephone Encounter - Angely Box - 01/24/2023 1059 EDT Deann from [facility] Is calling to verify that we received the form to be completed which was faxed to us on 01-15, Deann states they need the form completed and faxed back along with supporting documentation for pt regarding back brace. Please confirm with Deann at ph # [phone] Pls fax all info to fx # [phone] * Telephone Encounter - Bear Dumont - 01/22/2023 0840 EDT Reason for Call: Paperwork request Summary: Patient calling in to inform she has been to [employer] for her back brace and they have sent us paperwork that will need to be filled out along with provider notes in order for the to approve. Please reach out to patient with confirmation of this request. Appointment Offered? No Bear Dumont 01/22/2023 8:40 documented in this encounter Plan of Treatment Upcoming Encounters Date Type Department Care Team (Late st Contact Info) Description 04/27/2024 14:30 EDT Telemedicine [facility] Neurology - S [address] [address] Kj Gloria MD PhD 1 [facility] Level 2 [place] [phone] 04/30/2024 9:30 EDT Office Visit [facility] Interventional Pain 62 [facility] [place] [address] Catalino Garrett MD 62 [facility] [address] [place] [address] 09/18/2024 11:00 EST Office Visit [facility] Bariatric Surgery - [place] [address] [place] [address] Allen Tohmpson, PA-C 111 [facility], Level 5 [place] [phone] documented as of this encounter Visit Diagnoses Not on filedocumented in this encounter Care Teams Bulb Assembler Relationship Specialty Start Date End Date Curtis Burns MD 26 [facility] [address] [place], [place] [address] PCP - General Emergency Medicine 07/06/22 Juma Herrera MD [address] [facility] [place] [address] 12/08/18 documented as of this encounter
--- OUTSIDE RECORDS SUMMARY | 2024-04-22 23:46 | XMS_ITS | Encounter Summary ---
Author Organization [facility] Address [address] [place] [address] Care Team Providers Care Theatrical Trouper Name Role Phone Juma Herrera MD Unavailable Curtis Burns MD Primary Care Provider [phone] Reason for Visit * Reason Onset Date Comments Medications Refill 09/26/2022 Encounter Details Date Type Department Care Team (Late st Contact Info) Description 09/26/2022 Telephone [facility] Neurology - [place] [address] [place] [id number] Kj Gloria MD PhD 1 [facility] 2 [place] [address] Medications Refill Social History Tobacco [...] encounter Miscellaneous Notes * Telephone Encounter - Verena Irving - 09/26/2022 1245 EST SPR[facility] Request for PA/Funding Drug Name: Aimovig 140mg Next Injection Date: Call left for PT, based off adherence, 2. RX Insurance: [employer] Qty Remaining: Unknown PA Required: Yes Funding Needed: No documented in this encounter Plan of Treatment Upcoming Encounters Date Type Department Care Team (Late st Contact Info) Description 04/27/2024 14:30 EDT Telemedicine [facility] Neurology - [address] [id number] Kj Gloria MD PhD 1 [facility] Level 2 [place] [phone] 04/30/2024 9:30 EDT Office Visit [facility] Interventional Pain 62 [facility] [place], [place] [phone] Catalino Garrett MD 62 [facility] [address] [place] [address] 09/18/2024 11:00 EST Office Visit [facility] Bariatric Surgery [facility] [address] [place] [address] Aleln Thompson, PA-C [address] [place] [address], [address] [place] [address] documented as of this encounter Visit Diagnoses Not on filedocumented in this encounter Care Teams Theatrical Trouper Relationship Specialty Start Date End Date Curtis Burns MD 26 [facility] [address] [place] [address] PCP - General Emergency Medicine 07/06/22 Juma Herrera MD 24[address] [facility] [place] [address] 12/08/18 documented as of this encounter
--- OUTSIDE RECORDS SUMMARY | 2024-04-22 23:46 | XMS_ITS | Encounter Summary ---
Author Organization [facility] Address [address] [place] [address] Care Team Providers Care Knife Setter Grinder Machine Name Role Phone Juma Herrera MD Unavailable Curtis Burns MD Primary Care Provider [phone] Reason for Visit * Reason Onset Date Comments Other 10/11/2022 Encounter Details Date Type Department Care Team (Late st Contact Info) Description 10/11/2022 Telephone [facility] Physical Medicine & Rehabilitation - [facility] [address] [place] [address] Kj Child MD [address] [place] [address] Other Social History Tobacco Use Types Packs/Day [...] encounter Miscellaneous Notes * Telephone Encounter - Courtney Almaguer RN - 10/11/2022 1516 EST Conversation with Faith from [facility] regarding information regarding implant device. Ilet her know it was done pre EHR and I am not able to find it in the computer but medical records should be able to find these implants. She has spoken with them but karina try again. She will call if there is anything else we may help with. COURTNEY ALMAGUER RN 10/11/2022 15:19 * Telephone Encounter - Starr Narayan - 10/11/2022 1347 EST Reason for Call: No chief complaint on file. Summary: [facility] calling to get information on implanted device patient has so MRI can be scheduled. They need make and model of this divide so they can proceed Appointment Offered? N/A Starr Narayan 10/11/2022 13:47 documented in this encounter Plan of Treatment Upcoming Encounters Date Type Department Care Team (Late st Contact Info) Description 04/27/2024 14:30 EDT Telemedicine [facility] Neurology - S [address] [address] Kj Gloria MD PhD 1 [facility], Level 2 [place] [phone] 04/30/2024 9:30 EDT Office Visit [facility] Interventional Pain [address] [place], [place] [phone] Catalino Garrett MD 62 [facility] [address] [place] [address] 09/18/2024 11:00 EST Office Visit [facility] Bariatric Surgery - [place] [address] [place], [place] [address] Allen Thompson PA-C 111 [facility], Level [address] [place] [phone] documented as of this encounter Visit Diagnoses Not on filedocumented in this encounter Care Teams Knife Setter Grinder Machine Relationship Specialty Start Date End Date Curtis Burns MD 26 [facility] [address] [place] [address] PCP - General Emergency Medicine 07/06/22 Juma Herrera MD [address] [facility] [place] [address] 12/08/18 documented as of this encounter
--- OUTSIDE RECORDS SUMMARY | 2024-04-22 23:46 | XMS_ITS | Encounter Summary ---
Author Organization [facility] Address [address] [place] [address] Care Team Providers Care Data Conversion Developer Name Role Phone Juma Herrera MD Unavailable Curtis Burns MD Primary Care Provider [phone] Encounter Details Date Type Department Care Team (Late st Contact Info) Description 01/15/2023 Specialty Pharmacy [facility] - [address] [phone] Becki Major [facility] Social History Tobacco Use Types [...] Contact Info) Description 04/27/2024 14:30 EDT Telemedicine [facility] Neurology - [facility] 1 [place], [place] [address] Kj Gloria MD PhD 1 [facility], Level [address] [place] [phone] 04/30/2024 9:30 EDT Office Visit [facility] Interventional Pain 62 [place], [place] [phone] Catalino Garrett MD 62 [facility] [address] [place] [address] 09/18/2024 11:00 EST Office Visit [facility] Bariatric Surgery [facility] [address] [place], [place] [phone] Allen Thompson PALizettC 111 [facility], Level [address] [place] [phone] documented as of this encounter Visit Diagnoses Not on filedocumented in this encounter Care Teams Data Conversion Developer Relationship Specialty Start Date End Date Curtis Burns MD 26 [facility] [address] [place] [address] PCP - General Emergency Medicine 07/06/22 Juma Herrera MD [address] [facility] [place] [phone] 12/08/18 documented as of this encounter
--- OUTSIDE RECORDS SUMMARY | 2024-04-22 23:46 | XMS_ITS | Encounter Summary ---
Author Organization [facility] Address [address] [place] [address] Care Team Providers Care Fabric Worker Fitter Name Role Phone Juma Herrera MD Unavailable Curtis Burns MD Primary Care Provider [phone] Reason for Visit * Reason Onset Date Comments Appointment Related 12/26/2022 Encounter Details Date Type Department Care Team (Late st Contact Info) Description 12/26/2022 Telephone [facility] Interventional Pain [address] [place] [address] Catalino Garrett MD 62 [facility] [address] [place] [address] Appointment Related Social History Tobacco [...] encounter Miscellaneous Notes * Telephone Encounter - Eleonora Long MA - 12/26/2022 0817 EDT JULIAN contacted patient as a reminder about stopping Meloxicam 4 days, Fish Oil 7 days ahead of procedure on 01/08/23. JULIAN reminded the patient of the following items: -Patient must have a patient transportation driver -Patient needs to arrive 45 minutes ahead of procedural start time -Patient must be infection free and off antibiotics for 14 days prior to appointment -No Vaccines 2 weeks before or after procedures that involve steroids -Must be NPO Patient verbalized understanding is provided clinic phone number [phone] for any additional questions. documented in this encounter Plan of Treatment Upcoming Encounters Date Type Department Care Team (Late st Contact Info) Description 04/27/2024 14:30 EDT Telemedicine [facility] Neurology - [address] [address] Kj Gloria MD PhD 1 [facility], Level 2 [place] [address] 04/30/2024 9:30 EDT Office Visit [facility] Interventional Pain [address] [place], [place] [phone] Catalino Garrett MD 62 [facility] [address] [place] [address] 09/18/2024 11:00 EST Office Visit [facility] Bariatric Surgery - [place] [address] [place] [address] Allen Thompson PA-C [address] [place] [address], Level [address] [place] [phone] documented as of this encounter Visit Diagnoses Not on filedocumented in this encounter Care Teams Fabric Worker Fitter Relationship Specialty Start Date End Date Curtis Burns MD 26 [facility] [address] [place], [place] [address] PCP - General Emergency Medicine 07/06/22 Juma Herrera MD [address] [facility] [place] [address] 12/08/18 documented as of this encounter
--- OUTSIDE RECORDS SUMMARY | 2024-04-22 23:46 | XMS_ITS | Encounter Summary ---
Author Organization [facility] Address [address] [place] [address] Care Team Providers Care Councilperson Name Role Phone Juma Herrera MD Unavailable Curtis Burns MD Primary Care Provider [phone] Reason for Visit * Reason Onset Date Comments Results 12/17/2022 Encounter Details Date Type Department Care Team (Late st Contact Info) Description 12/17/2022 Telephone [facility] Interventional Pain 62 [place] [address] Catalino Garrett MD 62 [facility] [address] [place] [address] Results Social History Tobacco Use Types Packs/Day [...] Telephone Encounter - Shantelle Gautam RN - 12/18/2022 0747 EDT 12/18/2022: Results reviewed by this RN and forwarded to prior auth. * Telephone Encounter - Katie Bland MA - 12/17/2022 1528 EDT Procedure/Date: 09/06/2022 Therapeutic cervical epidural steroid injections at C7T1 (C6C7 planned but achieved access at this level) How long have you had relief? 3 months % of relief? 80 Current Pain score ( 6 or more) 10/10 Have you done conservative treatment? Yes, HEP, Heat ice, topical lidocaine, Functional improvement or reduction of medication? Can provide daily activities better, driving, walking. Next appointment; 01/08/2023 YSABEL BLAND MA 12/17/2022 15:40 Sent to RN for review; documented in this encounter Plan of Treatment Upcoming Encounters Date Type Department Care Team (Late st Contact Info) Description 04/27/2024 14:30 EDT Telemedicine [facility] Neurology - S [address] [address] Kj Gloria MD PhD 1 [facility] Level 2 [place] [address] 04/30/2024 9:30 EDT Office Visit [facility] Interventional Pain [address] [place], [place] [phone] Catalino Garrett MD [address] [facility] [address] [place] [address] 09/18/2024 11:00 EST Office Visit [facility] Bariatric Surgery - [place] [address] [place], [place] [address] Allen Thompson PA-C 111 [facility], Level [address] [place] [address] documented as of this encounter Visit Diagnoses Not on filedocumented in this encounter Care Teams Councilperson Relationship Specialty Start Date End Date Curtis Burns MD 26 [facility] [address] [place] [address] PCP - General Emergency Medicine 07/06/22 Juma Herrera MD [address] [facility] [place] [address] 12/08/18 documented as of this encounter
--- OUTSIDE RECORDS SUMMARY | 2024-04-22 23:46 | XMS_ITS | Encounter Summary ---
Author Organization [facility] Address [address] [place] [address] Care Team Providers Care Wire Mesh Knitter Name Role Phone Juma Herrera MD Unavailable Curtis Burns MD Primary Care Provider [phone] Reason for Visit * Reason Onset Date Comments Results 08/29/2022 Encounter Details Date Type Department Care Team (Late st Contact Info) Description 08/29/2022 Telephone [facility] Interventional Pain [address] [place] [address] Shantelle Gautam RN Results Social [...] Telephone Encounter - Shantelle Gautam RN - 08/29/2022 0949 EST Injection History: 05/17/2022: cervical epidural steroid injection at C6C7 ?? 02/01/22: cervical epidural steroid injection at C6C7 - 3 months of 80% improvement of Posterior neckpain and R cervicothoracic junction ?? 12/2021: R subacromial inj and R AC inj w/ Dr. Balbuena - 80% improvement in ?? 05/17/2021: sacroiliac joint injection bilateral??- 80% improvement x4 weeks, now at 50% improvement?? Refer to chart for more injection history Date and type of procedure: 05/17/2022: cervical epidural steroid injection at C6C7 Provider: Dr. Garrett Weeks/Months of relief: 3 months % of relief: 80-90% Current pain score: 6 Improvement in function: yes bending forward and turning neck side to side, raising arms, householdchores Reduction in pain medication: yes Conservative treatment: rest, ice, avoiding painful activities, topical rub, CBD cream, OTC analgesics, Marijuana Next appointment: Repeat YSABEL in 08/29/2022: RN spoke with the pt and obtained pain relief results as above. Forwarded to Mica Souza. documented in this encounter Plan of Treatment Upcoming Encounters Date Type Department Care Team (Late st Contact Info) Description 04/27/2024 14:30 EDT Telemedicine [facility] Neurology - S [address] [address] Kj Gloria MD PhD [address] [place] [address], Level [address] [place] [phone] 04/30/2024 9:30 EDT Office Visit [facility] Interventional Pain [address] [place], [place] [phone] Catalino Garrett MD [address] [facility] [address] [place] [address] 09/18/2024 11:00 EST [facility] Visit [facility] Bariatric Surgery - [place] [address] [place], [place] [address] Allen Thompson PA-C 111 [facility], Level [address] [place] [address] documented as of this encounter Visit Diagnoses Not on filedocumented in this encounter Care Teams Wire Mesh Knitter Relationship Specialty Start Date End Date Curtis Burns MD 26 [facility] [address] [place] [address] PCP - General Emergency Medicine 07/06/22 Juma Herrera MD [address] [facility] [place] [address] 12/08/18 documented as of this encounter
--- OUTSIDE RECORDS SUMMARY | 2024-04-22 23:46 | XMS_ITS | Encounter Summary ---
Author Organization [facility] Address [address] [place] [address] Care Team Providers Care Deep Tissue Massage Therapist Name Role Phone Juma Herrera MD Unavailable Curtis Burns MD Primary Care Provider [phone] Encounter Details Date Type Department Care Team (Latest Contact Info) Description 09/06/2022 7:44 EST - 09/06/2022 23:59 EST Hospital Encounter [facility] Xray [address] [place] [address] Discharge Disposition: Home or Self Care Social [...] Refills Start Date End Date busPIRone (BUSPAR) 30 mg tablet Take 1 [...] (THERAGRAN) Take 5 mL by mouth daily. nystatin (MYCOSTATIN) powder Apply to affected area twice daily. Clean and thoroughly dry area before application. 30 g 1 09/25/2021 pregabalin (LYRICA) 50 mg capsule Take 2 [...] skin every 28 days. 3 mL 3 12/20/2021 11/20/2022 omeprazole (PRILOSEC) 40 mg capsule Take 1 capsule by mouth daily. 90 capsule 3 09/22/2021 09/21/2022 documented as of this encounter Discharge Disposition Disposition Code Departure Means Destination Home or Self Care documented in this encounter Plan of Treatment Upcoming Encounters Date Type Department Care Team (Late st Contact Info) Description 04/27/2024 14:30 EDT Telemedicine [facility] Neurology - S [place] [address] [place], [place] [address] Kj Gloria MD PhD 1 [facility] [address] 2 [place] [address] 04/30/2024 9:30 EDT Office Visit [facility] Interventional Pain 62 [place] [address] Catalino Garrett MD 62 [facility] [address] [place] [address] 09/18/2024 11:00 EST Office Visit [facility] Bariatric Surgery - [place] [address] [place], [place] [address] Allen Thompson PA-C 111 [facility], [address] [place] [address] documented as of this encounter Procedures Procedure Name Priority Date/Time Associated Diagnosis Comments [facility] [place] CERVICAL INJECTION Routine 09/06/2022 11:43 EST documented in this encounter Results * PAIN CLINIC [place] CERVICAL INJECTION (09/06/2022 11:43 EST) Narrative 09/06/2022 11:44 EST This is a non-reportable exam. Catalino Garrett MD IMG OTHER IMAGING OR DERABLES documented in this encounter Visit Diagnoses Not on filedocumented in this encounter Care Teams Deep Tissue Massage Therapist Relationship Specialty Start Date End Date Curtis Burns MD 26 [facility] [address] [place] [address] PCP - General Emergency Medicine 07/06/22 Juma Herrera MD [address] [facility] [place] [phone] 12/08/18 documented as of this encounter
--- OUTSIDE RECORDS SUMMARY | 2024-04-22 23:46 | XMS_ITS | Encounter Summary ---
Author Organization [facility] Address [address] [place] [address] Care Team Providers Care Weaver Hand Loom Name Role Phone Juma Herrera MD Unavailable Curtis Burns MD Primary Care Provider Encounter Details Date Type Department Care Team (Late st Contact Info) Description 08/02/2022 Specialty Pharmacy [facility] - [address] [address] Jj Verduzco, [facility] Social History Tobacco Use Types Packs/Day Years [...] as of this encounter Progress Notes * Ermelinda Mishra - 08/02/2022 0848 EST [facility] Specialty Pharmacy Delivery Information Hours: Saturday-Saturday 8:30am - 5:00pm *Pharmacist available travel accommodations rater 25/03 Delivery Service: [employer] Delivery Window: None Specified Date of Delivery: 08/08/22 Tracking # : [id number] documented in this encounter Plan of Treatment Upcoming Encounters Date Type Department Care Team (Late st Contact Info) Description 04/27/2024 14:30 EDT Telemedicine [facility] Neurology [address] [phone] Kj Gloria MD PhD 1 [facility] 2 [place] [address] 04/30/2024 9:30 EDT Office Visit [facility] Interventional Pain [address] [place], [place] [phone] Catalino Garrett MD 62 [facility] [address] [place] [address] 09/18/2024 11:00 EST Office Visit [facility] Bariatric Surgery - [place] [address] [place] [address] Allen Thompson, PALizettC 111 [facility], [address] [place] [phone] documented as of this encounter Visit Diagnoses Not on filedocumented in this encounter Care Teams Weaver Hand Loom Relationship Specialty Start Date End Date Curtis Burns MD 26 [facility] [address] [place] [address] PCP - General Emergency Medicine 07/06/22 Juma Herrera MD [address] [facility] [phone] 12/08/18 documented as of this encounter
--- OUTSIDE RECORDS SUMMARY | 2024-04-22 23:46 | XMS_ITS | Encounter Summary ---
Author Organization [facility] Address [address] [place] [address] Care Team Providers Care Cathead Worker Name Role Phone Juma Herrera MD Unavailable Curtis Burns MD Primary Care Provider Reason for Referral * Consult (Urgent) - Authorized Specialty Diagnoses / Procedures [facility] To Contact [facility]acy Diagnoses Chronic migraine without aura without status migrainosus, not intractable Kj Gloria MD PhD 1 [facility] 2 [place] [address] [facility] [address] [place] [id number] Referral ID Status Reason Start Date Expiration Date Visits Requested Visits Authorized [id number] Authorized Specialty Services Required 09/26/2022 1 1 Question Answer PA Type: Re-auth Medication to be Prior Authorized: Aimovig 140mg Comments The purpose of this request is to inform precertification staff that the requested service needs to be reviewed for prior-authorization. Reason for Visit * Reason Onset Date Comments Prior Auth, Medication 09/26/2022 Re-auth A imovig 140mg/ml inject 1 ml subcutaneous q 30 days. Encounter Details Date Type Department Care Team ([facility] Contact Info) Description 09/26/2022 Telephone [facility] [place] [address] Kj Gloria MD PhD 1 [facility], Level [address] [place] [phone] Prior Auth, Medication (Re-auth Aimovig 140mg/ml inject 1 ml subcutaneous q 30 days. ) Social History Tobacco Use Types Packs/Day Years [...] Miscellaneous Notes * Telephone Encounter - Loretta Low - 09/26/2022 1547 EST Prior Authorization Approval Medication: Aimovig 140mg/ml inject 1 ml subcutaneous q 30 days. Insurance Name: [employer] Insurance Type: Medicare Part D Approval Dates: 09/26/2022-09/01/2023 Authorization Number: [id number] Benefits Information: [facility] able to fill? : yes Required Pharmacy: Additional Info/Other Notes: Patient is enrolled in our SPRX Prior Authorization Submission Process - Urgent Medication:Aimovig 140mg/ml inject 1 ml subcutaneous q 30 days. Insurance: [employer] Insurance Type: Medicare Part D Date PA Request Received: 09/26/2022 PA Submission Date: 09/26/2022 [facility] Srivastava: [id number] Notes: Submitted by: TRISTA Phone: [phone] documented in this encounter Plan of Treatment Upcoming Encounters Date Type Department Care Team (Late st Contact Info) Description 04/27/2024 14:30 EDT Telemedicine [facility] Neurology - [address] [address] Kj Gloria MD PhD 1 [facility] 2 [place] [phone] 04/30/2024 9:30 EDT Office Visit [facility] Interventional Pain [address] [place], [place] [phone] Catalino Garrett MD 62 [facility] [address] [place] [address] 09/18/2024 11:00 EST Office Visit [facility] Bariatric Surgery [facility] [address] [place], [place] [address] Allen Thompson, PALizettC 111 [facility], Level [address] [place] [phone] Scheduled Referrals Name Type Priority Associated Diagnoses Order Schedule AMB CONS/FOLLOW UP SPECIALTY PHARMACY MEDICATION PRIOR AUTHORIZATION REQUEST Outpatient Referral Urgent Chronic migraine without aura without status migrainosus, not intractable Expected: 09/28/2022 (Approximate), Expires: 09/26/2023 documented as of this encounter Visit Diagnoses Diagnosis Chronic migraine without aura without status migrainosus, not intractable- Primary Chronic migraine without aura, without mention of intractable migraine without mention of status migrainosus documented in this encounter Care Teams Cathead Worker Relationship Specialty Start Date End Date Curtis Burns MD 26 [facility] [address] [place] [address] PCP - General Emergency Medicine 07/06/22 Juma Herrera MD [address] [facility] [phone] 12/08/18 documented as of this encounter
--- OUTSIDE RECORDS SUMMARY | 2024-04-22 23:46 | XMS_ITS | Encounter Summary ---
Author Organization [facility] Address [address] [place] [address] Care Team Providers Care Lubricating Machine Tender Name Role Phone Juma Herrera MD Unavailable Curtis Burns MD Primary Care Provider [phone] Reason for Visit * Reason Onset Date Comments Appointment Related 08/28/2022 Encounter Details Date Type Department Care Team (Late st Contact Info) Description 08/28/2022 Telephone [facility] Interventional Pain [address] [place] [address] Catalino Garrett MD 62 [facility] [address] [place] [address] Appointment Related Social History Tobacco [...] * Telephone Encounter - Mica Souza - 08/29/2022 0742 EST Received the following voicemail 08/29/22: Hi my name is Muna Rooney. My phone number is [phone] my birthday is 1975. Someone called today but my voice box was full they called my 's phone I'm just calling to double check date and time for my appointment because I think I may have put in my calendar wrong. So if somebody could just give me a call and let me know when it is if it's or Saturday or whatever that would be great. Again Muna Rooney [phone]. Birthday 1975 and my voicemail is not full any more. Thank you have a great day. * Telephone Encounter - Saniya Larsen MA - 08/28/2022 1043 EST JULIAN contacted patient as a reminder about the following items: / -Patient must have a commercial relief driver -Patient needs to arrive 45 minutes ahead of procedural start time -Patient must be infection free and off antibiotics for 14 days prior to appointment -No Vaccines 2 weeks before or after procedures that involve steroids -Fasting guidelines of nothing to eat or drink after midnight day before procedure. Morning of procedure may take essential medications with a small sip of water (excluding medications that must be held for the procedure). Patient verbalizes understanding and is provided clinic phone number [phone] for any additional questions. documented in this encounter Plan of Treatment Upcoming Encounters Date Type Department Care Team (Late st Contact Info) Description 04/27/2024 14:30 EDT Telemedicine [facility] Neurology - [address] [place] [address] [place], [place] [address] Kj Gloria MD PhD 1 [facility], Level [address] [place] [phone] 04/30/2024 9:30 EDT Office Visit [facility] Interventional Pain [address], [place] [phone] Catalino Garrett MD 62 [facility] [address] [place] [address] 09/18/2024 11:00 EST Office Visit [facility] Bariatric Surgery [address] [address] Allen Thompson PA-C 111 [facility], [address] [place] [phone] documented as of this encounter Visit Diagnoses Not on filedocumented in this encounter Care Teams Lubricating Machine Tender Relationship Specialty Start Date End Date Curtis Burns MD 26 [facility] [address] [place], [place] [address] PCP - General Emergency Medicine 07/06/22 Juma Herrera MD [address] [facility] [place] [address] 12/08/18 documented as of this encounter
--- OUTSIDE RECORDS SUMMARY | 2024-04-22 23:46 | XMS_ITS | Encounter Summary ---
Author Organization [facility] Address [address] [place] [address] Care Team Providers Care Harbour Master Name Role Phone Juma Herrera MD Unavailable Curtis Burns MD Primary Care Provider [phone] Encounter Details Date Type Department Care Team (Late st Contact Info) Description 03/12/2023 Specialty Pharmacy [facility] Amb[facility]acy - [address] [address] Jj Verduzco, [facility] Social History Tobacco Use Types [...] Description 04/27/2024 14:30 EDT Telemedicine [facility] Neurology - [facility] [address] [place], [place] [address] Kj Gloria MD PhD 1 [facility] Level 2 [place] [phone] 04/30/2024 9:30 EDT Office Visit [facility] Interventional Pain 62 [facility] [place], [place] [phone] Catalino Garrett MD 62 [facility] [address] [place] [address] 09/18/2024 11:00 EST Office Visit [facility] Bariatric Surgery - [place] [address] [place], [place] [phone] Allen Thompson, PA-C 111 [facility], [address] [place] [phone] documented as of this encounter Visit Diagnoses Not on filedocumented in this encounter Care Teams Harbour Master Relationship Specialty Start Date End Date Curtis Burns MD 26 [facility] [address] [place], [place] [address] PCP - General Emergency Medicine 07/06/22 Juma Herrera MD [address] [facility] [place] [address] 12/08/18 documented as of this encounter
--- OUTSIDE RECORDS SUMMARY | 2024-04-22 23:46 | XMS_ITS | Encounter Summary ---
Author Organization [facility] Address [address] [place] [address] Care Team Providers Care Attending Ambulatory Care Name Role Phone Juma Herrera MD Unavailable Curtis Burns MD Primary Care Provider [phone] Encounter Details Date Type Department Care Team (Late st Contact Info) Description 04/10/2023 Specialty Pharmacy [facility] Amb[facility]acy - [address] [address] Jj Verduzco, [facility] Social History Tobacco Use Types Packs/Day [...] as of this encounter Miscellaneous Notes * Addendum Note - Carlene Mccoy RPH - 04/10/2023 1530 EDTAddended by: CARLENE MCCOY on: 05/02/2023 09:26 Modules accepted: Orders documented in this encounter Plan of Treatment Upcoming Encounters Date Type Department Care Team (Late st Contact Info) Description 04/27/2024 14:30 EDT Telemedicine [facility] Neurology - [address] [address] Kj Gloria MD PhD 1 [facility] 2 [place] [phone] 04/30/2024 9:30 EDT Office Visit [facility] Interventional Pain 62 [place] [address] Catalino Garrett MD 62 [facility] [address] [place] [address] 09/18/2024 11:00 EST Office Visit [facility] Bariatric Surgery - [place] [address] [place], [place] [address] Allen Thompson PA-C [address] [facility], Level [address] [place] [address] documented as of this encounter Visit Diagnoses Not on filedocumented in this encounter Care Teams Attending Ambulatory Care Relationship Specialty Start Date End Date Curtis Burns MD [address] [place], [place] [phone] PCP - General Emergency Medicine 07/06/22 Juma Herrera MD [address] [facility] [place] [phone] 12/08/18 documented as of this encounter
--- OUTSIDE RECORDS SUMMARY | 2024-04-22 23:46 | XMS_ITS | Encounter Summary ---
Author Organization [facility] Address [address] [place] [address] Care Team Providers Care Cold Storage Worker Name Role Phone Juma Herrera MD Unavailable Curtis Burns MD Primary Care Provider [phone] Reason for Visit * Reason Comments Pain * Referral (3 - 10 Business Days) - Receiving Office to Obtain Authorization Specialty Diagnoses / Procedures Referred By Wili mireles Referred To Contact Orthopedic Surgery Diagnoses Back pain Other dorsalgia Charlotte Us, TRANSFER OPERATOR 26 [facility] 185 [place] [address] [facility] Ortho Spine [address] [place] [address] Referral ID Status Reason Start Date Expiration Date Visits Requested Visits Authorized [id number] Receiving Office to Obtain Authorization 1 1 Encounter Details Date Type Department Care Team (Late st Contact Info) Description 12/11/2022 10:15 EDT Office Visit [facility] Spine Program - [address] [place] [address] Kj Child MD 192 [facility] [place] [address] Back pain, unspecified back location, unspecified back pain laterality, unspecified chronicity (Primary Dx) Social History Tobacco Use Types [...] of this encounter Progress Notes * Kj Child MD - 12/11/2022 1015 EDT Problem: 1. 80% mid lumbar pain 20% bilateral leg pain A. L3 isthmic spondylolisthesis B. L5-S1 PSF 2006 2. Neck pain A. C6-7 ACDF 2012 3. Obesity A. Gastric sleeve-100 pound weight loss 4. 87-skrv-jkuk smoking history 5. Bipolar disorder Subjective: 47-year-old woman previous history of cervical and lumbar surgeries. After each surgeryhad improvement in symptoms but persisting pain. She has had chronic neck pain and back pain for which she does home exercise program and gets intermittent cervical and lumbar injections and takes anti-inflammatories. She notes 2 to 3 weeks ago she had the acute onset of low back discomfort which was different from any of the pain she never had. She describes the pain is mid lumbar with occasional radiation into her lateral pelvis lateral thigh and lateral calf. She notes symptoms are present constantly to some degree worsened by all movement and improved somewhat by sitting and holding completely still. She is undergone treatment with home exercise program which is minimally helpful. She uses a topical patch which is helpful as well as a TENS unit which is helpful. She had no change in bowel or bladder habits Social history: Patient vapes a cartridge a day. 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 She is and makes ends meet through her spouse. She currently has custody of her granddaughter who is under the care of [facility]. Objective: Patient is tender to palpation in the mid lumbar region flexion with fingertips to her ankles extension to neutral. Pain is worst in extension. 2/5 Homa's signs. 5/5 EHL tib ant peroneal gastroc quad hams psoas. Trace knee and ankle symmetrically negative straight leg raising X-ray: Demonstrate a mobile L3 isthmic spondylolisthesis. Solid L5-S1 fusion with instrumentation intact. Degenerative changes at T12-L1 with loss of disc base height and osteophyte formation. MRI: Demonstrates her L3 spondylolisthesis to be reduced with some mild L3-4 foraminal stenosis butno central stenosis Assessment: Predominantly mechanical back pain. Symptoms could be consistent with her isthmic spondylolisthesis. May also just be musculoligamentous knee in nature related to degenerative change. We discussed the natural history which should be a progressive improvement and options and at this point she can pursue the following plan Plan: 1. Continue with anti-inflammatories 2. TENS unit as needed 3. Neoprene lumbar support 4. Pool therapy which she will be doing close to home 5. Consider L3-4 epidural 6. Follow-up as needed pending ongoing symptoms. documented in this encounter Plan of Treatment Upcoming Encounters Date Type Department Care Team (Late st Contact Info) Description 04/27/2024 14:30 EDT Telemedicine [facility] Neurology - [address] [address] Kj Gloria MD PhD 1 [facility], Level 2 [place] [phone] 04/30/2024 9:30 EDT Office Visit [facility] Interventional Pain [address] [place], [place] [phone] Catalino Garrett MD [address] [facility] [address] [place] [address] 09/18/2024 11:00 EST Office Visit [facility] Bariatric Surgery - [place] [address] [place], [place] [address] Allen Thompson PA-C 111 [facility], Level [address] [place] [phone] documented as of this encounter Visit Diagnoses Diagnosis Back pain, unspecified back location, unspecified back pain laterality, unspecified chronicity- Primary documented in this encounter Care Teams Cold Storage Worker Relationship Specialty Start Date End Date Curtis Burns MD 26 [facility] [address] [place] [address] PCP - General Emergency Medicine 07/06/22 Juma Herrera MD [address] [facility] [place] [phone] 12/08/18 documented as of this encounter
--- OUTSIDE RECORDS SUMMARY | 2024-04-22 23:46 | XMS_ITS | Encounter Summary ---
Author Organization [facility] Address [address] [place] [address] Care Team Providers Care Aircraft Maintenance Director Name Role Phone Juma Herrera MD Unavailable Curtis Burns MD Primary Care Provider [phone] Encounter Details Date Type Department Care Team (Late st Contact Info) Description 12/18/2022 Specialty Pharmacy [facility] - [address] [id number] Becki Major [facility] Social History Tobacco Use Types Packs/Day Years [...] Contact Info) Description 04/27/2024 14:30 EDT Telemedicine [facility] Neurology - [facility] 1 [place], [place] [address] Kj Gloria MD PhD 1 [facility], Level 2 [place] [phone] 04/30/2024 9:30 EDT Office Visit [facility] Interventional Pain 62 [place], [place] [phone] Catalino Garrett MD 62 [facility] [address] [place] [address] 09/18/2024 11:00 EST Office Visit [facility] B[facility]ric Surgery [facility] [address] [place], [place] [phone] Allen Thompson PALizettC 111 [facility], Level [address] [place] [phone] documented as of this encounter Visit Diagnoses Not on filedocumented in this encounter Care Teams Aircraft Maintenance Director Relationship Specialty Start Date End Date Curtis Burns MD 26 [facility] [address] [place] [address] PCP - General Emergency Medicine 07/06/22 Juma Herrera MD [address] [facility] [place] [phone] 12/08/18 documented as of this encounter
--- OUTSIDE RECORDS SUMMARY | 2024-04-22 23:46 | XMS_ITS | Encounter Summary ---
Author Organization [facility] Address [address] [place] [address] Care Team Providers Care Pharmacist Technician Name Role Phone Juma Herrera MD Unavailable Curtis Burns MD Primary Care Provider [phone] Encounter Details Date Type Department Care Team (Late st Contact Info) Description 11/21/2022 Specialty Pharmacy [facility] Ambulatory Pharmacy - [address] [address] Jj Verduzco, [facility] Social History Tobacco Use Types Packs/Day [...] Contact Info) Description 04/27/2024 14:30 EDT Telemedicine [facility] Neurology - [facility] 1 [place], [place] [address] Kj Gloria MD PhD 1 [facility] Level 2 [place] [phone] 04/30/2024 9:30 EDT Office Visit [facility] Interventional Pain 62 [facility] [place], [place] [phone] Catalino Garrett MD 62 [facility] [address] [place] [address] 09/18/2024 11:00 EST Office Visit [facility] Bariatric Surgery - [place] [address] [place], [place] [phone] Allen Thompson, PA-C 111 [facility], Level [address] [place] [phone] documented as of this encounter Visit Diagnoses Not on filedocumented in this encounter Care Teams Pharmacist Technician Relationship Specialty Start Date End Date Curtis Burns MD 26 [facility] [address] [place], [place] [address] PCP - General Emergency Medicine 07/06/22 Juma Herrera MD [address] [facility] [place] [address] 12/08/18 documented as of this encounter
--- OUTSIDE RECORDS SUMMARY | 2024-04-22 23:46 | XMS_ITS | Encounter Summary ---
Author Organization [facility] Address [address] [place] [address] Care Team Providers Care Cooperative Education Director Name Role Phone Juma Herrera MD Unavailable Curtis Burns MD Primary Care Provider [phone] Reason for Referral * Prior Authorization (Routine/Next Available) - Authorization Not Required Specialty Diagnoses / Procedures Referred By Wili mireles Referred To Contact Orthopedic Surgery Diagnoses Chronic right shoulder pain Jun Balbuena MD [address] [place] [phone] [facility] Ortho Sports [facility] [place] [address] Referral ID Status Reason Start Date Expiration Date Visits Requested Visits Authorized [id number] Authorization Not Required Specialty Services Required 3 1 1 Question Answer Reason for Request: RIGHT SHOULDER USG SA INJECTION Comments The purpose of this request is to inform precertification staff that the requested service needs to be reviewed for prior-authorization. Encounter Details Date Type Department Care Team (Late st Contact Info) Description 01/09/2023 Orders Only [facility] Sports Medicine Program - [place] [address] [place] [address] Jun Balbuena MD [address] [place] [address] Chronic right shoulder pain (Primary Dx) Social History Tobacco Use Types [...] Contact Info) Description 04/27/2024 14:30 EDT Telemedicine [facility] Neurology - [address] [address] Kj Gloria MD PhD 1 [facility] 2 [place] [phone] 04/30/2024 9:[address] [facility] - Interventional Pain [address] [place], [place] [phone] Catalino Garrett MD 62 [facility] [address] [place] [address] 09/18/2024 11:00 EST Office Visit [facility] Bariatric Surgery - [place] [address] [place] [address] Allen Thompson, PA-C 111 [facility], Level [address] [place] [address] Scheduled Referrals Name Type Priority Associated Diagnoses Order Schedule AMB CONS/FOLLOW UP IN CLINIC PROCEDURES PRIOR AUTHORIZATION REQUEST Outpatient Referral Routine/Next Available Chronic right shoulder pain Expected: 02/08/2023 (Approximate), Expires: 01/10/2024 documented as of this encounter Results * POC MSK US SHOULDER (02/08/2023 16:11 EDT) Narrative [facility] POINT OF CARE - 02/08/2023 16:11 EDT This is a non-reportable exam. Jun Balbuena MD IM US POC ORDERAB LES [facility] POINT OF CARE documented in this encounter Visit Diagnoses Diagnosis Chronic right shoulder pain- Primary Pain in joint, shoulder region Chronic right shoulder pain Pain in joint, shoulder region documented in this encounter Care Teams Cooperative Education Director Relationship Specialty Start Date End Date Curtis Burns MD [address] [place] [address] PCP - General Emergency Medicine 07/06/22 Juma Herrera MD [address] [facility] [place] [address] 12/08/18 documented as of this encounter
--- OUTSIDE RECORDS SUMMARY | 2024-04-22 23:46 | XMS_ITS | Encounter Summary ---
Author Organization [facility] Address [address] [place] [address] Care Team Providers Care Vendor Specialist Name Role Phone Juma Herrera MD Unavailable Curtis Burns MD Primary Care Provider [phone] Encounter Details Date Type Department Care Team (Late st Contact Info) Description 10/23/2022 Specialty Pharmacy [facility] - [address] [address] Jj Verduzco, [facility] Social History Tobacco [...] as of this encounter Progress Notes * Maki Jiménez - 10/23/2022 1347 EST Last refill credit card on file declined. $1 copay charged to A/R account. Please ask if OK to try charging again or if we need a new credit card to put on file. Current A/R balance of $1. documented in this encounter Plan of Treatment Upcoming Encounters Date Type Department Care Team (Late st Contact Info) Description 04/27/2024 14:30 EDT Telemedicine [facility] Neurology - [address] [phone] Kj Gloria MD PhD 1 [facility] 2 [place] [phone] 04/30/2024 9:30 EDT Office Visit [facility] Interventional Pain [address] [place], [place] [phone] Catalino Garrett MD [address] [facility] [address] [place] [address] 09/18/2024 11:00 EST Office Visit [facility] Bariatric Surgery - [place] [address] [place], [place] [address] Allen Thompson PA-C 111 [facility], Level [address] [place] [address] documented as of this encounter Visit Diagnoses Not on filedocumented in this encounter Care Teams Vendor Specialist Relationship Specialty Start Date End Date Curtis Burns MD 26 [facility] [address] [place] [address] PCP - General Emergency Medicine 07/06/22 Juma Herrera MD [address] [facility] [place] [phone] 12/08/18 documented as of this encounter
--- OUTSIDE RECORDS SUMMARY | 2024-04-22 23:46 | XMS_ITS | Encounter Summary ---
Author Organization [facility] Address [address] [place] [address] Care Team Providers Care Nature Photographer Name Role Phone Juma Herrera MD Unavailable Curtis Burns MD Primary Care Provider [phone] Encounter Details Date Type Department Care Team (Late st Contact Info) Description 08/28/2022 Specialty Pharmacy [facility] - [address] [address] Jj Verduzco, [facility] Social History Tobacco Use Types Packs/Day Years [...] as of this encounter Progress Notes * Ye Menezes - 08/28/2022 1640 EST [facility] Specialty Pharmacy Delivery Information Hours: Saturday-Saturday 8:30am - 5:00pm *Pharmacist available knitting demonstrator 25/03 Delivery Service: FedEx Delivery Window: None Specified Date of Delivery: 09/05/22 Tracking # : [id number] documented in this encounter Plan of Treatment Upcoming Encounters Date Type Department Care Team (Late st Contact Info) Description 04/27/2024 14:30 EDT Telemedicine [facility] Neurology [address] [address] Kj Gloria MD PhD 1 [facility] 2 [place] [phone] 04/30/2024 9:30 EDT Office Visit [facility] Interventional Pain 62 [facility] [place], [place] [phone] Catalino Garrett MD 62 [facility] [address] [place] [address] 09/18/2024 11:00 EST Office Visit [facility] Bariatric Surgery - [place] [address] [place] [address] Allen Thompson PA-C 111 [facility], Level 5 [place] [phone] documented as of this encounter Visit Diagnoses Not on filedocumented in this encounter Care Teams Nature Photographer Relationship Specialty Start Date End Date Curtis Burns MD 26 [facility] [address] [place] [address] PCP - General Emergency Medicine 07/06/22 Juma Herrera MD [address] [facility] [place] [phone] 12/08/18 documented as of this encounter
--- OUTSIDE RECORDS SUMMARY | 2024-04-22 23:46 | XMS_ITS | Encounter Summary ---
Author Organization [facility] Address [address] [place] [address] Care Team Providers Care Epic Analyst Name Role Phone Juma Herrera MD Unavailable Curtis Burns MD Primary Care Provider [phone] Reason for Visit * Reason Comments Neck Pain * Prior Authorization (Routine) - Specialty Report Received Specialty Diagnoses / Procedures Referred By Wili mireles Referred To Contact Pain Medicine Diagnoses Radiculopathy, cervical region YSABEL Procedures OK NJX DX/THER SBST INTRLMNR CRV/THRC W/IMG GDN PROCEDURE MEDIUM [facility] 62 [facility] [place] [address] Catalino Garrett MD 62 [facility] [employer] [address] [place] [address] Referral ID Status Reason Start Date Expiration Date V isits Requested Visits Authorized [id number] Specialty Report Received 05/02/2023 07/31/2023 1 1 Encounter Details Date Type Department Care Team (Latest Contact Info) Description 05/02/2023 10:00 EDT Procedure visit [facility] Interventional Pain [address] [place] [address] Catalino Garrett MD 62 [facility] [address] [place] [address] Radiculopathy, cervical region (Primary Dx) Social [...] Sign Reading Time Taken Comments Blood Pressure 147/77 05/02/2023 1032 EDT Pulse 78 05/02/2023 1032 EDT Temperature 36.3 ??C (97.3 ??F) 05/02/2023 0959 EDT Respiratory Rate 16 05/02/2023 1032 EDT Oxygen Saturation 99% 05/02/2023 0959 EDT Inhaled Oxygen Concentration - - Weight [...] this encounter Patient Instructions * Patient Instructions* Millie Nunez RN - 05/02/2023 10:00 EDT [facility] [place] [phone] Patient Instructions You have had your cervical [...] office immediately. If you develop increasingly severe neck/back pain, continued numbness or weakness of the arms, please call our office immediately. Instructions for follow-up If you have any questions about your block, please call Patient Education Topic: Method: Handout and Verbal Taught to: Patient Barriers: None Outcomes: independent and verbalized understanding Signature: Millie Brumfield RN documented in this encounter Progress Notes * aBrak Zimmerman MD - 05/02/2023 1000 EDT Patient Name: Tia Rooney : 1975 Date of Service: 05/02/2023 Electronics Assembler And Tester: Gerry MEHTA Biological Scientist: MD Erasmo Procedure: Therapeutic cervical epidural steroid injections at C7-T1 Interval History: Patient currently denies any progressive [...] pt's course w/u functional limitiations Injection History: 05/02/2023: cervical epidural steroid injection at C7-T1 01/08/2023: cervical epidural steroid injection at C7T1 - 3 months of >80% relief 05/17/22: cervical epidural steroid injection at C6C7 [...] improvement in posterior neck pain andpost arm pain. But still had anterior shoulder, [...] recent infections. Physical Exam: Vitals: BP (!) 147/77 (BP Cuff Location: Right arm, BP Patient Position: Sitting, BP Cuff Sizes: Adult, long) Pulse 78 Temp 36.3 ??C (97.3 ??F) Resp 16 SpO2 99% General: Patient is [...] region Plan: Ms. Tia Rooney is a 47 y.o. female that presents to the pain clinic to undergo cervical epidural steroid injections in regards to her chronic neck pain. All risks, benefits, and alternatives werethoroughly explained to Ms. Tia Rooney who verbally communicated understanding of the management plan. Proceed with therapeutic YSABEL C7T1 Follow up: next available w Dr Garrett. Having some LBP vs SIJ pain will assess at appt PROCEDURE: The patient gave informed written consent [...] fluoroscopy demonstrating a typical epidural pattern with noevidence of intravascular or intrathecal injection. After negative aspiration, 10 mg Dexamethasone and 2 ml Normal Saline were injected. The needle was then flushed and withdrawn. The patient tolerated the procedure well, there were no apparent complications, and she was discharged in stable condition. Written and verbal discharge instructions were reviewed with the patient prior to discharge. Barak Zimmerman MD [facility] Interventional Pain Medicine Fellow (PGY-5) 05/02/23 Attending attestation: I have seen and evaluated the patient with the resident/fellow. I agree withthe findings and plan of care documented in the resident's/fellow's note. In addition, I was present and participating during the entire procedure. Catalino Garrett MD * Saniya Larsen MA - 05/02/2023 1000 EDT [facility] Rooming Note Does patient have a Print Line Feeder? yes Is patient NPO? (Solids since midnight [...] have any type of implanted device? scs Vaccination: Have you had or are you planning to have a vaccination in the 2 weeks? no Other: no * Millie Nunez RN - 05/02/2023 1000 EDT ATTENTION: An active Time-Out initiated by [...] Contact Info) Description 04/27/2024 14:[address] [facility] Neurology - [address] [phone] Kj Gloria MD PhD [address] [place] [address] 2 [place] [phone] 04/30/2024 9:30 EDT Office Visit [facility] Interventional Pain [address] [place], [place] [phone] Catalino Garrett MD 62 [facility] [address] [place] [address] 09/18/2024 11:[address] [facility] Bariatric Surgery - [place] [address] [place], [place] [address] Allen Thompson PA-C 111 [facility] 5 [place] [address] documented as of this encounter Visit Diagnoses Diagnosis Radiculopathy, cervical region- Primary Brachial neuritis or radiculitis nos documented in this encounter Administered Medications Inactive Administered Medications - up to 3 most recent administrations Medication Order MAR Action Action Date Dose Rate Site dexAMETHasone (DECADRON) injection 10 mg 10 mg, neural-axial, NOW X1, 1 dose, On Karen 05/02/23 at 1045, Routine Given by Other 05/02/2023 10:28 EDT 10 mg Iohexol (OMNIPAQUE 180) injection 10 mL 10 mL, neural-axial, NOW X1, 1 dose, On Karen 05/02/23 at 1045, Routine Given by Other 05/02/2023 10:28 EDT 2 mL documented in this encounter Care Teams Epic Analyst Relationship Specialty Start Date End Date Curtis Burns MD 26 [facility] [address] [place] [address] PCP - General Emergency Medicine 07/06/22 Juma Herrera MD [address] [facility] [place] [phone] 12/08/18 documented as of this encounter
--- OUTSIDE RECORDS SUMMARY | 2024-04-22 23:46 | XMS_ITS | Encounter Summary ---
Author Organization [facility] Address [address] [place] [address] Care Team Providers Care Date Night Sitter Name Role Phone Juma Herrera MD Unavailable Curtis Burns MD Primary Care Provider [phone] Encounter Details Date Type Department Care Team (Late st Contact Info) Description 05/08/2023 Specialty Pharmacy [facility] - [address] [address] Jj Verduzco, [facility] Social History Tobacco Use Types Packs/Day [...] as of this encounter Progress Notes * Jj Verduzco RPH - 05/08/2023 1051 EDT [facility] Specialty Pharmacy CGRP Routine Follow Up Tia Rooney is a 47 y.o. female being treated with Aimovig 140mg for migraine. Side effects/toxicities: none Assessment: Patient is established on therapy,. [facility] Jj Verduzco, PharmD Specialty Pharmacy 05/08/2023 * Ana Rosa Croft RPH - 05/08/2023 1051 EDT Tia called in about not seeing her Fedex box being delivered last night. She is due for her Aimovig dose tomorrow. Recommended that she keep it out at room temperature until she is due for her dose. documented in this encounter Plan of Treatment Upcoming Encounters Date Type Department Care Team (Late st Contact Info) Description 04/27/2024 14:30 EDT Telemedicine [facility] Neurology - [address] [address] Kj Gloria MD PhD 1 [facility] 2 [place] [phone] 04/30/2024 9:30 EDT Office Visit [facility] Interventional Pain 62 [facility] [place], [place] [phone] Catalino Garrett MD 62 [facility] [address] [place] [address] 09/18/2024 11:00 EST Office Visit [facility] Bariatric Surgery - [place] [address] [place] [address] Allen Thompson PA-C 111 [facility], [facility] 5 [place] [phone] documented as of this encounter Visit Diagnoses Not on filedocumented in this encounter Care Teams Date Night Sitter Relationship Specialty Start Date End Date Curtis Burns MD 26 [facility] [address] [place] [address] PCP - General Emergency Medicine 07/06/22 Juma Herrera MD [address] [facility] [address] 12/08/18 documented as of this encounter
--- OUTSIDE RECORDS SUMMARY | 2024-04-22 23:46 | XMS_ITS | Encounter Summary ---
Author Organization [facility] Address [address] [place] [address] Care Team Providers Care Anesthetic Assistant Name Role Phone Juma Herrera MD Unavailable Curtis Burns MD Primary Care Provider [phone] Reason for Referral * Radiology Services (Routine/Next Available) - Authorization Not Required Specialty Diagnoses / Procedures Referred By Contac t Referred To Contact Diagnoses Back pain, unspecified back location, unspecified back pain laterality, unspecified chronicity Procedures XR LUMBAR SPINE BENDING VIEWS, 2 OR 3 VIEWS Kj Child MD [address] [place] [phone] [facility] Referral ID Status Reason Start Date Expiration Date Visits Requested Visits Authorized [id number] Authorization Not Required 12/10/2022 1 1 Reason for Visit * Radiology Services (Routine/Next Available) - Authorization Not Required Specialty Diagnoses / Procedures Referred By Contac t Referred To Contact Diagnoses Back pain, unspecified back location, unspecified back pain laterality, unspecified chronicity Procedures XR LUMBAR SPINE BENDING VIEWS, 2 OR 3 VIEWS Kj Child MD [address] [place] [phone] [facility] Referral ID Status Reason Start Date Expiration Date Visits Requested Visits Authorized [id number] Authorization Not Required 12/10/2022 1 1 Encounter Details Date Type Department Care Team (Latest Contact Info) Description 12/11/2022 9:59 EDT - 12/11/2022 23:59 EDT Hospital Encounter [facility] [address] [place], [place] [phone] Back pain, unspecified back location, unspecified back pain laterality, unspecified chronicity Discharge Disposition: Home or Self Care Social [...] the skin every 28 days. 3 mL 1 11/20/2022 05/02/2023 omeprazole (PRILOSEC) 40 mg capsule Take 1 Capsule by mouth daily. 90 Capsule 3 09/21/2022 09/20/2023 documented as of this encounter Discharge Disposition Disposition Code Departure Means Destination Home or Self Care documented in this encounter Plan of Treatment Upcoming Encounters Date Type Department Care Team (Late st Contact Info) Description 04/27/2024 14:30 EDT Telemedicine [facility] Neurology - [address] [address] Kj Gloria MD PhD [address] [place] [address] 2 [place] [phone] 04/30/2024 9:30 EDT Office Visit [facility] Interventional Pain [address] [place], [place] [phone] Catalino Garrett MD [address] [place] [address] 09/18/2024 11:00 EST Office Visit [facility] Bariatric Surgery - [place] [address] [place], [place] [phone] Allen Thompson PA-C 111 [facility], Level [address] [place] [phone] documented as of this encounter Procedures Procedure Name Priority Date/Time Associated Diagnosis Comments XR LUMBAR SPINE BENDING VIEWS, 2 OR 3 VIEWS Routine 12/11/2022 10:15 EDT Back pain, unspecified back location, unspecified back pain laterality, unspecified chronicity documented in this encounter Results * XR LUMBAR SPINE BENDING VIEWS, 2 OR 3 VIEWS (12/11/2022 10:15 EDT) Anatomical Region Laterality Modality Computed Radiogr aphy 12/14/2022 15:0 9 EDT Impressions 12/14/2022 15:09 EDT Findings and Impression: There are surgical changes of L5-S1 posterior metallic fixation. There is grade 1 anterolisthesis of L3 upon L4 with flexion. This reduces with extension. Narrative 12/14/2022 15:09 EDT Plain film lumbar spine December 11, 2022 Comparison: ??MR November 07, 2022 Technique: Lateral flexion-extension views were obtained of the lumbar spine History: 47-year-old female with lumbar surgery and back pain Procedure Note Jun Collazo MD - 12/14/2022 Plain film lumbar spine December 11, 2022 Comparison: MR November 07, 2022 Technique: Lateral flexion-extension views were obtained of the lumbarspine History: 47-year-old female with lumbar surgery and back pain IMPRESSION Findings and Impression: There are surgical changes of L5-S1 posteriormetallic fixation. There is grade 1 anterolisthesis of L3 upon L4 withflexion. This reduces with extension. Kj Child MD IMG DIAGNOSTIC I MAGING ORDERABLES documented in this encounter Visit Diagnoses Diagnosis Back pain, unspecified back location, unspecified back pain laterality, unspecified chronicity documented in this encounter Care Teams Anesthetic Assistant Relationship Specialty Start Date End Date Curtis Burns MD 26 [facility] [address] [place] [address] PCP - General Emergency Medicine 07/06/22 Juma Herrera MD [address] [place] [address] 12/08/18 documented as of this encounter
--- OUTSIDE RECORDS SUMMARY | 2024-04-22 23:46 | XMS_ITS | Encounter Summary ---
Author Organization [facility] Address [address] [place] [address] Care Team Providers Care Lease Purchase Truck Driver Name Role Phone Juma Herrera MD Unavailable Curtis Burns MD Primary Care Provider [phone] Encounter Details Date Type Department Care Team (Latest Contact Info) Description 01/08/2023 7:44 EDT - 01/08/2023 23:[address] [facility] Xray [address] [place], [place] [phone] Discharge Disposition: Home or Self Care Social [...] Contact Info) Description 04/27/2024 14:30 EDT Telemedicine [facility] Neurology - [address] [phone] Kj Gloria MD PhD 1 [facility] Level 2 [place] [phone] 04/30/2024 9:30 EDT Office Visit [facility] Interventional Pain 62 [facility] [place] [address] Catalino Garrett MD 62 [facility] [address] [place] [address] 09/18/2024 11:00 EST Office Visit [facility] Bariatric Surgery - [place] [address] [place], [place] [address] Allen Thompson PA-C 111 [facility], Level [address] [place] [phone] documented as of this encounter Procedures Procedure Name Priority Date/Time Associated Diagnosis Comments PAIN CLINIC [place] CERVICAL INJECTION Routine 01/08/2023 11:05 EDT documented in this encounter Results * PAIN CLINIC FL CERVICAL INJECTION (01/08/2023 11:05 EDT) Narrative 01/08/2023 11:05 EDT This is a non-reportable exam. Catalino Garrett MD IMG OTHER IMAGING OR DERABLES documented in this encounter Visit Diagnoses Not on filedocumented in this encounter Care Teams Lease Purchase Truck Driver Relationship Specialty Start Date End Date Curtis Burns MD 26 [facility] [address] [place] [address] PCP - General Emergency Medicine 07/06/22 uJma Herrera MD [address] [place] [address] 12/08/18 documented as of this encounter
--- OUTSIDE RECORDS SUMMARY | 2024-04-22 23:46 | XMS_ITS | Encounter Summary ---
Author Organization [facility] Address [address] [place] [address] Care Team Providers Care Broadcast Supervisor Name Role Phone Juma Herrera MD Unavailable Curtis Burns MD Primary Care Provider Reason for Referral * Radiology Services (Routine/Next Available) - Authorization Not Required Specialty Diagnoses / Procedures Referred By Contac t Referred To Contact Diagnoses Back pain, unspecified back location, unspecified back pain laterality, unspecified chronicity Procedures XR LUMBAR SPINE BENDING VIEWS, 2 OR 3 VIEWS Kj Child MD [address] [place] [phone] [facility] Referral ID Status Reason Start Date Expiration Date Visits Requested Visits Authorized [id number] Authorization Not Required 12/10/2022 1 1 Encounter Details Date Type Department Care Team (Late st Contact Info) Description 12/10/2022 Orders Only [facility] Spine Program - [address] [place] [address] Kj Child MD [address] [place] [phone] Back pain, unspecified back location, unspecified [...] Contact Info) Description 04/27/2024 14:30 EDT Telemedicine [facility] Neurology - [address] [address] Kj Gloria MD PhD 1 [facility] Level [address] [place] [phone] 04/30/2024 9:30 EDT Office Visit [facility] Interventional Pain [address] [place] [address] Catalino Garrett MD 62 [facility] [address] [place] [address] 09/18/2024 11:00 EST Office Visit [facility] Bariatric Surgery - [address] [place] [address] Allen Thompson PA-C 111 [facility], Level [address] [place] [address] documented as of this encounter Results * XR LUMBAR SPINE [...] unspecified back pain laterality, unspecified chronicity- Primary Back pain, unspecified back location, unspecified back pain laterality, unspecified chronicity documented in this encounter Orders Equipment Count Last Ordered Date First Orde red Date GENERIC ORTHO VENDOR DME 1 12/11/2022 documented in this encounter Care Teams Broadcast Supervisor Relationship Specialty Start Date End Date Curtis Burns MD 26 [address] [place] [address] PCP - General Emergency Medicine 07/06/22 Juma Herrera MD [address] [facility] [place] [phone] 12/08/18 documented as of this encounter
--- OUTSIDE RECORDS SUMMARY | 2024-04-22 23:46 | XMS_ITS | Encounter Summary ---
Author Organization [facility] Address [address] [place] [address] Care Team Providers Care Filter Machine Operator Name Role Phone Juma Herrera MD Unavailable Curtis Burns MD Primary Care Provider [phone] Encounter Details Date Type Department Care Team (Latest Contact Info) Description 05/02/2023 7:38 EDT - 05/02/2023 23:59 EDT Hospital Encounter [facility] Xray [address] [place], [place] [phone] Discharge Disposition: Home or Self Care Social [...] Contact Info) Description 04/27/2024 14:30 EDT [facility]icine [facility] Neu[facility] - [address] [id number] Kj Gloria MD PhD 1 [facility] Level 2 [place] [phone] 04/30/2024 9:30 EDT Office Visit [facility] Interventional Pain 62 [facility] [place] [address] Catalino Garrett MD 62 [facility] [address] [place] [address] 09/18/2024 11:00 EST [facility] - [place] [address] [place], [place] [address] Allen Thompson PA-C 111 [facility], Level 5 [place] [phone] documented as of this encounter Procedures Procedure Name Priority Date/Time Associated Diagnosis Comments PAIN CLINIC [place] CERVICAL INJECTION Routine 05/02/2023 10:33 EDT documented in this encounter Results * PAIN CLINIC [place] CERVICAL INJECTION (05/02/2023 10:33 EDT) Narrative 05/02/2023 10:33 EDT This is a non-reportable exam. Catalino Garrett MD IMG OTHER IMAGING OR DERABLES documented in this encounter Visit Diagnoses Not on filedocumented in this encounter Care Teams Filter Machine Operator Relationship Specialty Start Date End Date Curtis Burns MD 26 [facility] [address] [place] [address] PCP - General Emergency Medicine 07/06/22 Juma Herrera MD [address] [facility] [place] [address] 12/08/18 documented as of this encounter
--- OUTSIDE RECORDS SUMMARY | 2024-04-22 23:46 | XMS_ITS | Encounter Summary ---
Author Organization [facility] Address [address] [place] [address] Care Team Providers Care Histology Aide Name Role Phone Juma Herrera MD Unavailable Curtis Burns MD Primary Care Provider [phone] Reason for Visit * Reason Comments Neck Pain Patient is here for neck pain * Prior Authorization (Routine) - Specialty Report Received Specialty Diagnoses / Procedures Referred By Wili mireles Referred To Contact Pain Medicine Diagnoses Radiculopathy, cervical region YSABEL Procedures ID NJX DX/THER SBST INTRLMNR CRV/THRC W/IMG GDN PROCEDURE SHORT Catalino Garrett MD 62 [facility] [address] [place] [address] Catalino Garrett MD 62 [facility] [address] [place] [address] Referral ID Status Reason Start Date Expiration Date V isits Requested Visits Authorized [id number] Specialty Report Received 01/08/2023 03/08/2023 1 1 Encounter Details Date Type Department Care Team (Latest Contact Info) Description 01/08/2023 11:00 EDT Procedure visit [facility] Interventional Pain 62 [facility] [place] [address] Catalino Garrett MD 62 [facility] [address] [place] [address] Radiculopathy, cervical region (Primary Dx) [...] Sign Reading Time Taken Comments Blood Pressure 140/92 01/08/2023 1059 EDT Pulse 90 01/08/2023 1059 EDT Temperature 36.1 ??C (97 ??F) 01/08/2023 1022 EDT Respiratory Rate 16 01/08/2023 1059 EDT Oxygen Saturation 100% 01/08/2023 1022 EDT Inhaled Oxygen Concentration - - Weight [...] this encounter Patient Instructions * Patient Instructions* Saloni, ALEXANDER Kwong - 01/08/2023 11:00 EDT [facility] [address] [address] Patient Instructions You have had [...] documented in this encounter Progress Notes * Eleonora Long MA - 01/08/2023 1100 EDT [facility] Rooming Note Does patient have a Pediatric Ophthalmologist? Yes Is patient NPO? (Solids since midnight & liquids for 4 hrs) Yes Blood Thinners: Is patient on Blood Thinners? No If yes, taking? If stopped, who authorized stopping? Related comments: Infections: Any recent infections, fever of illnesses? No If on antibiotics, is it 7-10 days past the date of completion of antibiotics? No : (for females of child-bearing age) Is there a chance current ? No Do you have any type of implanted device? Yes Spinal cord stimualer Vaccination: Have you had or are you planning to have a vaccination in the 2 weeks? No Other: No * Elenita Guallpa RN - 01/08/2023 1100 EDT ATTENTION: An active Time-Out initiated [...] was completed. * Catalino Garrett MD - 01/08/2023 1100 EDT Patient Name: Tia Rooney : 1975 Date of Service: 01/08/2023 Senior Core Java Developer: Gerry MEHTA Supervisor Net Making: none Procedure: Therapeutic cervical epidural steroid injections [...] pt's course w/u functional limitiations Injection History: 01/08/2023: cervical epidural steroid injection at C7T1 [...] known recent infections. Physical Exam: Vitals: BP 132/89 Pulse 87 Temp 36.1 ??C (97 ??F) (Tympanic) Resp 16 SpO2 100% General: [...] Proceed with therapeutic YSABEL C7T1 Follow up: Will repeat in about 3-4 months. In the past, results have been longer and better if she was treated more regularly. PROCEDURE: The patient gave informed written consent [...] the patient prior to discharge. Gerry MEHTA documented in this encounter Plan of Treatment Upcoming Encounters Date Type Department Care Team (Late st Contact Info) Description 04/27/2024 14:30 EDT Telemedicine [facility] Neurology - [facility] 1 [place], [place] [address] Kj Gloria MD PhD 1 [facility] Level 2 [place] [phone] 04/30/2024 9:30 EDT Office Visit [facility] Interventional Pain 62 [place] [address] Catalino Garrett MD 62 [facility] [address] [place] [phone] 09/18/2024 11:00 EST Office Visit [facility] Bariatric Surgery [facility] [address] [place], [place] [address] Allen Thompson PA-C [address] [place] [address], Level 5 [place] [phone] documented as of this encounter Visit Diagnoses Diagnosis Radiculopathy, cervical region- Primary Brachial neuritis or radiculitis nos documented in this encounter Administered Medications Inactive Administered Medications - up to 3 most recent administrations Medication Order MAR Action Action Date Dose Rate Site dexAMETHasone (DECADRON) injection 10 mg 10 mg, neural-axial, NOW X1, 1 dose, On Sat01/08/23 at 1115, Routine Given by Other 01/08/2023 10:55 EDT 10 mg Iohexol (OMNIPAQUE 180) injection 2 mL 2 mL, neural-axial, NOW X1, 1 dose, On Sat01/08/23 at 1115, Routine Given by Other 01/08/2023 10:55 EDT 2 mL documented in this encounter Care Teams Histology Aide Relationship Specialty Start Date End Date Curtis Burns MD 26 [facility] [address] [place] [address] PCP - General Emergency Medicine 07/06/22 Juma Herrera MD [address] [place] [address] 12/08/18 documented as of this encounter
--- OUTSIDE RECORDS SUMMARY | 2024-04-22 23:46 | XMS_ITS | Encounter Summary ---
Author Organization [facility] Address [address] [place] [address] Care Team Providers Care Station Repairer Name Role Phone Juma Herrera MD Unavailable Curtis Burns MD Primary Care Provider [phone] Reason for Visit * (Routine/Next Available) - Receiving Office to Obtain Authorization Specialty Diagnoses / Procedures Referred By Wili mireles Referred To Contact Procedures XR OUTSIDE IMAGES LUMBAR SPINE Imaging, External Referral ID Status Reason Start Date Expiration Date Visits Requested Visits Authorized [id number] Receiving Office to Obtain Authorization 11/23/2022 1 1 Encounter Details Date Type Department Care Team (Latest Contact Info) Description 11/07/2022 Hospital Encounter [facility] Center [place] Discharge Disposition: Home or Self Care Social [...] Info) Description 04/27/2024 14:30 EDT Telemedicine [facility] Neurology - [address] [address] Kj Golria MD PhD 1 [facility], Level 2 [place] [phone] 04/30/2024 9:30 EDT Office Visit [facility] Interventional Pain 62 [facility] [place] [place] [address] Catalino Garrett MD 62 [facility] [address] [place] [phone] 09/18/2024 11:00 EST Office Visit [facility] Bariatric Surgery - [place] [address] [place] [address] Allen Thompson PA-C 111 [facility], Level 5 [place] [phone] documented as of this encounter Procedures Procedure Name Priority Date/Time Associated Diagnosis Comments XR OUTSIDE IMAGES LUMBAR SPINE Routine 11/07/2022 15:49 EST documented in this encounter Results * XR OUTSIDE IMAGES LUMBAR SPINE (11/07/2022 15:49 EST) Narrative 11/23/2022 15:50 EDT This is a non-reportable exam. External Imaging IMG OTHER IMAGING OR DERABLES documented in this encounter Visit Diagnoses Not on filedocumented in this encounter Care Teams Station Repairer Relationship Specialty Start Date End Date Curtis Burns MD 26 [facility] [address] [place] [address] PCP - General Emergency Medicine 07/06/22 Juma Herrera MD [address] [facility] [place] [phone] 12/08/18 documented as of this encounter
--- OUTSIDE RECORDS SUMMARY | 2024-04-22 23:46 | XMS_ITS | Encounter Summary ---
Author Organization [facility] Address [address] [place] [address] Care Team Providers Care Assembler Filters Name Role Phone Juma Herrera MD Unavailable Curtis Burns MD Primary Care Provider [phone] Reason for Visit * (Routine/Next Available) - Receiving Office to Obtain Authorization Specialty Diagnoses / Procedures Referred By Wili mireles Referred To Contact Procedures MR OUTSIDE IMAGES LUMBAR SPINE Imaging, External Referral ID Status Reason Start Date Expiration Date Visits Requested Visits Authorized [id number] Receiving Office to Obtain Authorization 11/23/2022 1 1 Encounter Details Date Type Department Care Team (Latest Contact Info) Description 11/07/2022 Hospital Encounter [facility] Center Secondary [place]s [place] Discharge [...] Contact Info) Description 04/27/2024 14:30 EDT Telemedicine [facility] Neurology - [address] [id number] Kj Gloria MD PhD 1 [facility], Level 2 [place] [phone] 04/30/2024 9:30 EDT Office Visit [facility] Interventional Pain 62 [facility] [place], [place] [phone] Catalino Garrett MD 62 [facility] [address] [place] [phone] 09/18/2024 11:00 EST Office Visit [facility] Bariatric Surgery - [place] [address] [place] [address] Allen Thompson PA-C 111 [facility], Level 5 [place] [phone] documented as of this encounter Procedures Procedure Name Priority Date/Time Associated Diagnosis Comments MR OUTSIDE IMAGES LUMBAR SPINE Routine 11/07/2022 15:50 EST documented in this encounter Results * MR OUTSIDE IMAGES LUMBAR SPINE (11/07/2022 15:50 EST) Narrative 11/23/2022 15:51 EDT This is a non-reportable exam. External Imaging IMG OTHER IMAGING OR DERABLES documented in this encounter Visit Diagnoses Not on filedocumented in this encounter Care Teams Assembler Filters Relationship Specialty Start Date End Date Curtis Burns MD 26 [facility] [address] [place] [address] PCP - General Emergency Medicine 07/06/22 Juma Herrera MD [address] [facility] [place] [place] [phone] 12/08/18 documented as of this encounter
--- OUTSIDE RECORDS SUMMARY | 2024-04-22 23:46 | XMS_ITS | Encounter Summary ---
Author Organization [facility] Address [address] [place] [address] Care Team Providers Care Motor Pool Clerk Name Role Phone Juma Herrera MD Unavailable Curtis Burns MD Primary Care Provider [phone] Reason for Visit * Reason Comments Injections * Prior Authorization (Routine/Next Available) - Authorization Not Required Specialty Diagnoses / Procedures Referred By Wili mireles Referred To Contact Orthopedic Surgery Diagnoses Chronic right shoulder pain Jun Balbuena MD [address] [place] [phone] [facility] Ortho Sports [address] [place] [address] [place] [address] Referral ID Status Reason Start Date Expiration Date Visits Requested Visits Authorized [id number] Authorization Not Required Specialty Services Required 3 1 1 Encounter Details Date Type Department Care Team (Latest Contact Info) Description 02/08/2023 11:30 EDT Procedure visit [facility] Sports Medicine Program - [place] [address] [place] [address] Jun Balbuena MD [address] [place] [address] Impingement syndrome of shoulder, right (Primary Dx) Social History Tobacco Use Types [...] as of this encounter Progress Notes * Jun Balbuena MD - 02/08/2023 1130 EDTAssociated Order(s): Medication Only Injection Post-Procedure Diagnose(s): Impingement syndrome of shoulder, right Chief Complaint Patient presents with ??? Right Shoulder - Injections SUBJECTIVE: Tia Rooney is a 47 y.o. female who present for an ultrasound guided injection into her right subacromial space. Patient has a diagnosis of chronic right shoulder pain. She has impingement syndrome as well as AC and SC joint degenerative changes. 7 out of 10 pain. Risks, benefits and alternatives were discussed with the patient and consent was obtained. The final Verification/time out immediately prior to incision/procedure has been conducted by me and membersof the procedural team as appropriate to their [...] for guidance, the subacromial space was accessed witha 1.5 inch 22 gauge needle. The subacromial [...] to the above plan. Jun Balbuena MD 12:48 02/08/2023 Procedure: Medication Only Injection on 02/08/2023 11:30 Medications: 80 mg triamcinolone acetonide 40 mg/mL; 3 mL lidocaine 20 mg/mL (2 %); 3 mL bupivacaine (PF) 0.5% documented in this encounter Plan of Treatment Upcoming Encounters Date Type Department Care Team (Late st Contact Info) Description 04/27/2024 14:30 EDT Telemedicine [facility] Neurology - [address] [id number] Kj Gloria MD PhD 1 [facility], Level 2 [place] [address] 04/30/2024 9:30 EDT Office Visit [facility] Interventional Pain [address] [place] [address] Catalino Garrett MD [address] [facility] [address] [place] [address] 09/18/2024 11:00 EST Office Visit [facility] Bariatric Surgery - [place] [address] [place], [place] [phone] Allen Thompson PA-C 111 [facility], [facility] 5 [place] [address] documented as of this encounter Procedures Procedure Name Priority Date/Time Associated Diagnosis Comments MEDICATION ONLY INJECTION Routine 02/08/2023 11:30 EDT Impingement syndrome of shoulder, right documented in this encounter Results * Medication Only Injection (02/08/2023 11:30 EDT) Narrative [facility] POINT [facility] CARE - 02/08/2023 11:30 EDT Jun Balbuena MD ? 02/08/2023 12:49 Medication Only Injection on 02/08/2023 11:30 Medications: 80 mg triamcinolone acetonide 40 mg/mL; 3 mL lidocaine 20 mg/mL (2 %); 3 mL bupivacaine (PF) 0.5% Jun Balbuena MD PROCEDURE/MINOR HARDY RGICAL ORDERABLES [facility] POINT OF CARE documented in this encounter Visit Diagnoses Diagnosis Impingement syndrome of shoulder, right- Primary documented in this encounter Administered Medications Inactive Administered Medications - up to 3 most recent administrations Medication Order MAR Action Action Date Dose Rate Site BUPivacaine (PF) (MARCAINE) 0.5% injection 3 mL 3 mL, intra-articular, Once PRN Procedure, 1 dose, Starting on Sat02/08/23 at 1130, Until Sat02/08/23 at 1130, Routine Given 02/08/2023 11:30 EDT 3 mL lidocaine 20 mg/mL (2 %) injection 3 mL 3 mL, other, Once PRN Procedure, 1 dose, Starting on Sat02/08/23 at 1130, Until Sat02/08/23 at 1130, Routine Given 02/08/2023 11:30 EDT 3 mL triamcinolone acetonide (KENALOG-40) injection 80 mg 80 mg, other, Once PRN Procedure, 1 dose, Starting on Sat02/08/23 at 1130, Until Sat02/08/23 at 1130, Routine Given 02/08/2023 11:30 EDT 80 mg documented in this encounter Care Teams Motor Pool Clerk Relationship Specialty Start Date End Date Curtis Burns MD 26 [facility] [address] [place] [address] PCP - General Emergency Medicine 07/06/22 Juma Herrera MD [address] [facility] [place] [address] 12/08/18 documented as of this encounter
--- OUTSIDE RECORDS SUMMARY | 2024-04-22 23:46 | XMS_ITS | Encounter Summary ---
Author Organization [facility] Address [address] [place] [address] Care Team Providers Care Wastewater Superintendent Name Role Phone Juma Herrera MD Unavailable Curtis Burns MD Primary Care Provider [phone] Reason for Visit * Reason Comments Neck Pain Bilateral * Prior Authorization (Routine) - Specialty Report Received Specialty Diagnoses / Procedures Referred By Wili mireles Referred To Contact Pain Medicine Diagnoses Radiculopathy, cervical region Repeat YSABEL at C6-C7 Procedures WA NJX DX/THER SBST INTRLMNR CRV/THRC W/IMG GDN PROCEDURE MEDIUM [facility] 62 [place] [address] Catalino Garrett MD [address] [address] Referral ID Status Reason Start Date Expiration Date V isits Requested Visits Authorized [id number] Specialty Report Received 1 1 Encounter Details Date Type Department Care Team (Latest Contact Info) Description 09/06/2022 11:00 EST Procedure visit [facility] Interventional Pain [address] [place] [address] Catalino Garrett MD 62 [facility] [address] [place] [address] Radiculopathy, cervical region (Primary Dx) Social [...] Sign Reading Time Taken Comments Blood Pressure 135/80 09/06/2022 1142 EST Pulse 72 09/06/2022 1142 EST Temperature 36.7 ??C (98 ??F) 09/06/2022 1044 EST Respiratory Rate 16 09/06/2022 1142 EST Oxygen Saturation 99% 09/06/2022 1044 EST Inhaled Oxygen Concentration - - Weight - [...] this encounter Patient Instructions * Patient Instructions* Shantelle Piedra RN - 09/06/2022 11:00 EST [facility] [address] [address] Patient Instructions You have had [...] immediately. If you develop increasingly severe neck pain or continued numbness or weakness of the arms, please call our office immediately. Instructions for follow-up If you have any questions about your block, please call Patient Education Topic: Method: Handout and Verbal Taught to: Patient Barriers: None Outcomes: independent and verbalized understanding SHANTELLE PIEDRA RN documented in this encounter Progress Notes * Saniya Larsen MA - 09/06/2022 1100 EST [facility] Rooming Note Does patient have a Skin Fitter? yes Is patient NPO? (Solids since midnight [...] the 2 weeks? no Other: no * Shantelle Piedra RN - 09/06/2022 1100 EST ATTENTION: An active Time-Out initiated by the [...] was completed. * Catalino Garrett MD - 09/06/2022 1100 EST Patient Name: Tia Rooney : 1975 Date of Service: 09/10/2022 Wood Model Builder: Gerry MEHTA Compounder Helper: none Procedure: Therapeutic cervical epidural steroid injections at C7T1 (C6C7 planned but achieved access at this level) Interval History: Patient currently denies any progressive [...] pt's course w/u functional limitiations Injection History: 09/10/2022: cervical epidural steroid injection at C7T1 (C6C7 [...] known recent infections. Physical Exam: Vitals: BP 135/80 (BP Cuff Location: Right arm, BP Patient Position: Sitting, BP Cuff Sizes: Adult,long) Pulse 72 Temp 36.7 ??C (98 ??F) (Tympanic) Resp 16 SpO2 99% General: [...] better if she was treated more regularly. She will call if knee pain [...] Description 04/27/2024 14:30 EDT Telemedicine [facility] Neurology - [facility] [place] 1 [place], [place] [address] Kj Gloria MD PhD 1 [facility], Level 2 [place] [phone] 04/30/2024 9:30 EDT Office Visit [facility] Interventional Pain 62 [place], [place] [phone] Catalino Garrett MD 62 [facility] [address] [place] [phone] 09/18/2024 11:00 EST Office Visit [facility] Bariatric Surgery [facility] [address] [place] [address] Allen Thompson PA-C 111 [facility], Level 5 [place] [phone] documented as of this encounter Visit Diagnoses Diagnosis Radiculopathy, cervical region- Primary Brachial neuritis or radiculitis nos documented in this encounter Administered Medications Inactive Administered Medications - up to 3 most recent administrations Medication Order MAR Action Action Date Dose Rate Site dexAMETHasone (DECADRON) injection 10 mg 10 mg, neural-axial, NOW X1, 1 dose, On Karen 09/06/22 at 1145, Routine Given by Other 09/06/2022 11:30 EST 10 mg Iohexol (OMNIPAQUE 180) injection 10 mL 10 mL, neural-axial, NOW X1, 1 dose, On Karen 09/06/22 at 1145, Routine Given by Other 09/06/2022 11:30 EST 10 mL documented in this encounter Care Teams Wastewater Superintendent Relationship Specialty Start Date End Date Curtis Burns MD 26 [facility] [address] [place] [address] PCP - General Emergency Medicine 07/06/22 Juma Herrera MD [address] [facility] [place] [address] 12/08/18 documented as of this encounter
--- OUTSIDE RECORDS SUMMARY | 2024-04-22 23:46 | XMS_ITS | Encounter Summary ---
Author Organization [facility] Address [address] [place] [address] Care Team Providers Care Small Electric Engine Technician Name Role Phone Juma Herrera MD Unavailable Curtis Burns MD Primary Care Provider [phone] Encounter Details Date Type Department Care Team (Late st Contact Info) Description 09/26/2022 Specialty Pharmacy [facility] - [address] [address] Jj Verduzco, [facility] Social History Tobacco Use Types Packs/Day [...] Contact Info) Description 04/27/2024 14:30 EDT Telemedicine [facility] Neurology - [facility] [place] 1 [place], [place] [address] Kj Gloria MD PhD 1 [facility] Level 2 [place] [phone] 04/30/2024 9:[address] [facility] Interventional Pain 62 [facility] [place], [place] [phone] Catalino Garrett MD 62 [facility] [address] [place] [address] 09/18/2024 11:00 EST Office Visit [facility] Bariatric Surgery - [place] [address] [place], [place] [phone] Allen Thompson, PA-C 111 [facility], [address] [place] [phone] documented as of this encounter Visit Diagnoses Not on filedocumented in this encounter Care Teams Small Electric Engine Technician Relationship Specialty Start Date End Date Curtis Burns MD 26 [facility] [address] [place], [place] [address] PCP - General Emergency Medicine 07/06/22 Juma Herrera MD [address] [facility] [place] [address] 12/08/18 documented as of this encounter
--- OUTSIDE RECORDS SUMMARY | 2024-04-22 23:46 | XMS_ITS | Encounter Summary ---
Author Organization [facility] Address [address] [place] [address] Care Team Providers Care Land Conservation Specialist Name Role Phone Juma Herrera MD Unavailable Curtis Burns MD Primary Care Provider [phone] Reason for Visit * Reason Onset Date Comments Injections 12/17/2022 Encounter Details Date Type Department Care Team (Late st Contact Info) Description 12/17/2022 Telephone [facility] Hand & Upper Extremity Program - [address] [address] Jun Balbuena MD [address] [place] [address] Injections Social History Tobacco Use Types Packs/Day Years [...] encounter Miscellaneous Notes * Telephone Encounter - Brian Chang MA - 12/18/2022 0939 EDT Scheduled and placed on the cancellation list per patient's request. * Telephone Encounter - Lisa Herbert - 12/17/2022 1538 EDT Reason for Call: Injections Summary: Patient is calling to schedule an appointment for an injection in her right shoulder with . Please give the patient a call to schedule. Thank you! Appointment Offered? No Lisa Herbert 12/17/2022 15:39 documented in this encounter Plan of Treatment Upcoming Encounters Date Type Department Care Team (Late st Contact Info) Description 04/27/2024 14:30 EDT Telemedicine [facility] Neurology - [address] [id number] Kj Gloria MD PhD 1 [facility] 2 [place] [phone] 04/30/2024 9:30 EDT Office Visit [facility] Interventional Pain 62 [facility] [place], [place] [phone] Catalino Garrett MD 62 [facility] [address] [place] [address] 09/18/2024 11:00 EST Office Visit [facility] Bariatric Surgery - [place] [address] [place] [address] Allen Thompson, PA-C 111 [facility], [facility] 5 [place] [phone] documented as of this encounter Visit Diagnoses Not on filedocumented in this encounter Care Teams Land Conservation Specialist Relationship Specialty Start Date End Date Curtis Burns MD 26 [facility] [address] [place], [place] [address] PCP - General Emergency Medicine 07/06/22 Juma Herrera MD [address] [facility] [place] [address] 12/08/18 documented as of this encounter
--- OUTSIDE RECORDS SUMMARY | 2024-04-22 23:46 | XMS_ITS | Encounter Summary ---
Author Organization [facility] Address [address] [place] [address] Care Team Providers Care Joggle Press Operator Name Role Phone Juma Herrera MD Unavailable Curtis Burns MD Primary Care Provider [phone] Reason for Visit * Reason Comments Follow-up Telemedicine Video Visit Encounter Details Date Type Department Care Team (Late st Contact Info) Description 12/17/2022 11:00 EDT Telemedicine [facility] Neurology - [place] [address] [place] [id number] Kj Gloria MD PhD 1 [facility] Level 2 [place] [address] Chronic migraine without aura without [...] Notes * Kj Gloria MD PhD - 12/17/2022 1100 EDT Neurology Consult Follow Up Note Date of Service: 12/17/2022 PCP: Curtis Burns Follow up for: migraine No chief complaint on file. The concept of ???Telemedicine?? 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 She was last seen in follow-up via Zoom on 06/25/22. At that time, she reported ~ 3 mild headache days per month on Aimovig 140mg Q 28 days (without side effects) and rizatriptan 10mg PRN. [facility] ([facility]), she had reported daily headaches, with severe headache ~ 15 days per month. Headaches have been really good with ~ 3 headache days per month, using 2 to 3 sumatriptan 6mg scinjections per months. However, she says that the last two weeks have rough with headaches. She says that she is due forcervical spine blocks (she says epidural cortisol). She also notes that hot weather recently triggers headaches. She says that the Aimovig has been phenomenal. Medications and Allergies: Current Outpatient Medications Medication ??? busPIRone (BUSPAR) [...] 5 mg tablet ??? multivitamins (THERAGRAN) ??? nystatin (MYCOSTATIN) powder ??? omeprazole (PRILOSEC) 40 mg capsule ??? [...] Vomiting Root beer Assessment and Plan: Chronic migraine, remitted to episodic migraine. Consider FL-41 tinted eyeglasses for photophobia. Continue current regimen. Keep headache record. Return to clinic 6 months. I spent a total of > 30 minutes on the date of this encounter meeting with the patient and reviewing documentation/coordinating care as described in the above note. Diagnoses and all orders for this visit: Chronic migraine without aura without status migrainosus, not intractable Kj Gloria MD PhD 12/17/2022 11:16 documented in this encounter Plan of Treatment Upcoming Encounters Date Type Department Care Team (Late st Contact Info) Description 04/27/2024 14:30 EDT Telemedicine [facility] Neurology - [address] [place] [address] [place] [address] Kj Gloria MD PhD 1 [facility], Level [address] [place] [phone] 04/30/2024 9:30 EDT Office Visit [facility] Interventional Pain 62 [place], [place] [phone] Catalino Garrett MD 62 [facility] [address] [place] [phone] 09/18/2024 11:00 EST Office Visit [facility] Bariatric Surgery [facility] [address] [place] [address] Allen Thompson PA-C 111 [facility], [facility], Level 5 [place] [phone] documented as of this encounter Visit Diagnoses Diagnosis Chronic migraine without aura without status migrainosus, not intractable- Primary Chronic migraine without aura, without mention of intractable migraine without mention of status migrainosus documented in this encounter Historical Medications * This list may reflect changes made after this encounter. Medication Sig Dispensed Refills Start Date End Date naproxen sodium (ALEVE ORAL) Take 1 Tablet by mouth 2 times daily. prn acetaminophen (TYLENOL EX STR RAPID RELEASE ORAL) Take by mouth 3 times daily. omega-3 fatty acids/fish oil (FISH OIL-OMEGA-3 FATTY ACIDS) 300-1,000 mg capsule daily. 10/09/2022 added in this encounter Care Teams Joggle Press Operator Relationship Specialty Start Date End Date Curtis Burns MD [address] [facility] [address] [place] [address] PCP - General Emergency Medicine 07/06/22 Juma Herrera MD [address] [place] [phone] 12/08/18 documented as of this encounter
--- OUTSIDE RECORDS SUMMARY | 2024-04-22 23:46 | XMS_ITS | Encounter Summary ---
Author Organization [facility] Address [address] [place] [id number] Care Team Providers Care Stock Room Manager Name Role Phone Juma Herrera MD Unavailable Curtis Burns MD Primary Care Provider [phone] Encounter Details Date Type Department Care Team (Late st Contact Info) Description 04/19/2023 Telephone [facility] Interventional Pain [address] [place] [phone] Albina Jain, ALEXANDER [address] [place] [phone] Social History Tobacco Use Types Packs/Day Years [...] encounter Miscellaneous Notes * Telephone Encounter - Albina Jain RN - 04/19/2023 0911 EDT 04/19/23 RN LM for patient to call back. She will need to be reminded of the following items: -Patient must have a cdl a driver -Patient needs to arrive 45 minutes ahead of procedural start time -Patient must be infection free and off antibiotics for 14 days prior to appointment -No Vaccines 2 weeks before or after procedures that involve steroids -Fasting guidelines: No solid food or fat containing liquids after midnight before your procedure. (Ex: milk, coffee creamer) -Pt may have fat free clear liquids without pulp until 4 hours before your procedure (Ex. Water, Gatorade, apple juice, cranberry juice, Jello-O, black coffee or tea, carbonated clear beverages) -Take essential medications with a small sip of water at any time prior to the procedure. Anticoagulation medications: Meloxicam - 4 days prior, Naproxen - 4 days prior, omega 3 - 7 days prior Discontinuation of supplements: Yes Patient is provided clinic phone number [phone] for any additional questions documented in this encounter Plan of Treatment Upcoming Encounters Date Type Department Care Team (Late st Contact Info) Description 04/27/2024 14:30 EDT Telemedicine [facility] Neurology - [address] [phone] Kj Gloria MD PhD 1 [facility], Level 2 [place] [phone] 04/30/2024 9:30 EDT Office Visit [facility] Interventional Pain [address] [place], [place] [phone] Catalino Garrett MD 62 [facility] [address] [place] [address] 09/18/2024 11:00 EST Office Visit [facility] Bariatric Surgery - [place] [address] [place], [place] [address] Allen Thompson PA-C 111 [facility] Level 5 [place] [phone] documented as of this encounter Visit Diagnoses Not on filedocumented in this encounter Care Teams Stock Room Manager Relationship Specialty Start Date End Date Curtis Burns MD 26 [facility] [address] [place] [address] PCP - General Emergency Medicine 07/06/22 Juma Herrera MD [address] [facility] [place] [phone] 12/08/18 documented as of this encounter
--- OUTSIDE RECORDS SUMMARY | 2024-04-22 23:46 | XMS_ITS | Encounter Summary ---
Author Organization [facility] Address [address] [place] [address] Care Team Providers Care Operations Label Clerk Name Role Phone Juma Herrera MD Unavailable Curtis Burns MD Primary Care Provider [phone] Reason for Visit * Reason Onset Date Comments Medications Refill 11/20/2022 Aimovig 140 m g/ml SOAJ Encounter Details Date Type Department Care Team (Late st Contact Info) Description 11/20/2022 Telephone [facility] Neurology - [place] [address] [place] [phone] Kj Gloria MD PhD 1 [facility] 2 [place] [address] Medications Refill (Aimovig 140 mg/ml SOAJ) Social History Tobacco Use Types Packs/Day Years [...] 28 days. 3 mL 1 11/20/2022 05/02/2023 documented in this encounter Miscellaneous Notes * Telephone Encounter - Kizzy Chamorro - 11/20/2022 1626 EDT Medication Request Medication: Aimovig 140 mg/ml SOAJ Medication refill: yes Medication dose change: no Refill due: 11/21/22 Date of last fill: 10/29/22 Pharmacy: [email or web address] Next appt: 12/17/2022 documented in this encounter Plan of Treatment Upcoming Encounters Date Type Department Care Team (Late st Contact Info) Description 04/27/2024 14:30 EDT Telemedicine [facility] Neurology - [address] [phone] Kj Gloria MD PhD 1 [facility] 2 [place] [phone] 04/30/2024 9:30 EDT Office Visit [facility] Interventional Pain 62 [facility] [place] [address] Catalino Garrett MD 62 [facility] [address] [place] [phone] 09/18/2024 11:00 EST Office Visit [facility] Bariatric Surgery - [place] [address] [place] [address] Allen Thompson, PA-C 111 [facility], Level [address] [place] [phone] documented as of this encounter Visit Diagnoses Not on filedocumented in this encounter Discontinued Medications Medication Sig Discontinue Reason Start Date End Da te erenumab-aooe (AIMOVIG AUTOINJECTOR) 140 mg/mL auto-injector Inject 1 mL into the skin every 28 days. Reorder 12/20/2021 11/20/2022 documented as of this encounter Care Teams Operations Label Clerk Relationship Specialty Start Date End Date Curtis Burns MD 26 [facility] [address] [place] [address] PCP - General Emergency Medicine 07/06/22 Juma Herrera MD [address] [facility] [place] [address] 12/08/18 documented as of this encounter
--- OUTSIDE RECORDS SUMMARY | 2024-04-22 23:46 | XMS_ITS | Encounter Summary ---
Author Organization [facility] Address [address] [place] [address] Care Team Providers Care Repairer And Checker Name Role Phone Juma Herrera MD Unavailable Curtis Burns MD Primary Care Provider [phone] Reason for Visit * Reason Onset Date Comments Other 02/25/2023 Back Brace Encounter Details Date Type Department Care Team (Late st Contact Info) Description 02/25/2023 Telephone [facility] Spine Program - [facility] [address] [place] [address] Kj Child MD [address] [facility] [place] [address] Other (Back Brace ) Social History Tobacco Use Types Packs/Day [...] encounter Miscellaneous Notes * Telephone Encounter - Miguel Crandall MA - 02/26/2023 1511 EDT Returned Tia's call. Discussed bracing instruction's with her. She was under the impression the brace would fix her spine. Explained purpose was to help improveher functionality and hopefully reduce her pain. She voiced frustration about the purpose of the brace. * Telephone Encounter - Pretty Benavidez - 02/25/2023 0958 EDT Reason for Call: Other (Back Brace ) Summary: Pt got brace today. Pt is wearing but didn't get any instruction on how long she should wear it.Should it be 24 hours? Any instruction on how to use Brace would be helpful. Please advise Appointment Offered? No Pretty Benavidez 02/25/2023 9:58 documented in this encounter Plan of Treatment Upcoming Encounters Date Type Department Care Team (Late st Contact Info) Description 04/27/2024 14:30 EDT Telemedicine [facility] Neurology - S [place] 1 [place], [place] [address] Kj Gloria MD PhD 1 [facility], Level 2 [place] [address] 04/30/2024 9:30 EDT Office Visit [facility] Interventional Pain [address] [place], [place] [phone] Catalino Garrett MD [address] [facility] [address] [place] [address] 09/18/2024 11:00 EST Office Visit [facility] Bariatric Surgery - [place] [address] [place], [place] [address] Allen Thompson PA-C 111 [facility], Level [address] [place] [phone] documented as of this encounter Visit Diagnoses Not on filedocumented in this encounter Care Teams Repairer And Checker Relationship Specialty Start Date End Date Curtis Burns MD 26 [facility] [address] [place], [place] [phone] PCP - General Emergency Medicine 07/06/22 Juma Herrera MD [address] [facility] [place] [phone] 12/08/18 documented as of this encounter
--- OUTSIDE RECORDS SUMMARY | 2024-04-22 23:46 | XMS_ITS | Encounter Summary ---
Author Organization [facility] Address [address] [place] [address] Care Team Providers Care Cloth Wire Weaver Name Role Phone Juma Herrera MD Unavailable Curtis Burns MD Primary Care Provider [phone] Reason for Visit * Reason Comments Obesity Post op sleeve 7 Yea rs Encounter Details Date Type Department Care Team (Late st Contact Info) Description 09/21/2022 10:30 EST Office Visit [facility] Bariatric Surgery [facility] [address] [place] [address] Allen Thompson, PA-C [address] [place] [address], [facility], Level [address] [place] [address] Morbid obesity (HCC-CMS) (Primary Dx); [...] - Inhaled Oxygen Concentration - - Weight 96.5 kg (212 lb 12.8 oz) 09/21/2022 1037 EST Height 172.7 cm (5' 7.99) 09/21/2022 1037 EST Body Mass Index 32.36 09/21/2022 1037 EST documented in this encounter Functional Status [...] daily. 90 Capsule 3 09/21/2022 09/20/2023 documented in this encounter Progress Notes * Lux Dumont, RD - 09/21/2022 1030 EST Nutrition Post Op Visit: Gastric Sleeve Subjective: Patient returns to clinic for post op nutritional counseling following bariatric surgery ~ 7 years ago. Questionnaire Reviewed: Yes Intolerance Episodes: yes rarely if she eats too fast or too much or type of food Food Intolerances: Cauliflower causes regurgitation Current Exercise: Walking 20-30 min twice a week; PT appointment X 2-3 per week Objective: Current Weight: Wt Readings from Last 1 Encounters: 09/21/22 96.5 kg (212 lb 12.8 oz) Current BMI: Body mass index is Body mass index is 32.36 kg/m??.. Total Weight Loss: Total Loss in lbs (Weight from Initial Consult - Today's Weight): (!) 112.8 lbs Weight Change since Last Visit:+11.4 lbs and lost 66 lbs since surgery Supplement Usage: Type Amount MVT Women's 50+ X1 Calcium w/Vit D X1 Vit D 25 mcg X2 Other: Recent Labs(09/18/2019):WNL, Abnormal (Vit D low) Assessment: Adequate Meal Frequency: Yes Adequate Meal Composition: Yes Exercise Adequacy: No Hydration/Caffeine:128 ounces of water, 1-2 cups coffee/ 3 pumps sweetened creamer;regular donato Dio(2 cans a day) Alcohol Intake:Yes, rarely Sleep:poor Stress/Anxiety/Depression:yes too all ; seeing a psychiatrist once a month, she is looking for a new counselor Nutritional Issues:Tia takes protein shake every morning. She tends to skip lunch and also take another protein shake. Advised adding a fruit to her lunch if she is only taking a protein shake. Advised solid meal choices at meal times. Advised cutting back sweetened beverages. Plan: Continue current diet and exercise Change intake;Cut back sweetened donato dio Increase exercise:Increase walking Supplement Changes:Continue current MVM Initiate food logs Education Provided: Weight Control:maintain current wt Other:follow-up in 1 year * Allen Thompson PA-C - 09/21/2022 1030 EST 09/21/2022 Tia Rooney is here in follow-up to her laparoscopic sleeve gastrectomy 7 years ago. The weight trend for the patient is: Weight at initial consult: 147.7 kg (325 lb 9.6 oz), to 98.9 kg (218 lb) [] at the last post-op visit to today's Weight : 96.5 kg (212 lb 12.8 oz). PROBLEM LIST Patient Active Problem List Diagnosis ??? Lumbar radiculopathy ??? Os trigonum syndrome ??? Tarsal tunnel syndrome of right side ??? Idiopathic peripheral neuropathy ??? Cervicalgia ??? Morbid obesity with BMI of 45.0-49.9, adult ([facility] ([facility]) ??? Chronic migraine without aura without status migrainosus, not intractable SUBJECTIVE: Emesis: occasional complaints of emesis (foamy phlegm) if she eats too fast Nausea: No complaints of nausea Increased Volume Tolerance: no Abdominal Pain: No complaints of abdominal pain Lightheadedness: No complaints of lightheadedness Bowel Function: Varies between constipation and diarrhea, baseline prior to surgery Pannus: Rash occasionally under pannus, breasts and in axilla OBJECTIVE: General Appearance: healthy appearing, alert and in no apparent distress Abdomen: Incisions well-healed Extremities: Normal Skin: Excess abdominal skin, no rashes ASSESSMENT: Doing well, Expected course without obvious complications and Weight Loss: Good. GERD better controlled on 40mg omeprazole, will represcribe. PLAN: 1. Return to clinic in 1 year(s). 2. No orders of the defined types were placed in this encounter. 3. Seen and discussed with Wedding Decorator at this visit. Time spent: 26 minutes total; 16 minutes with the patient and 10 minutes for documentation and coordination of care. Allen Thompson PA-C 09/21/2022 10:48 documented in this encounter Plan of Treatment Upcoming Encounters Date Type Department Care Team (Late st Contact Info) Description 04/27/2024 14:30 EDT Telemedicine [facility] Neurology - [address] [phone] Kj Gloria MD PhD 1 [facility], Level [address] [place] [phone] 04/30/2024 9:[address] [facility] Interventional Pain [address] [place] [address] Catalino Garrett MD [address] [facility] [address] [place] [address] 09/18/2024 11:00 EST Office Visit [facility] Bariatric Surgery [facility] Er [address] [place], [place] [address] Allen Thompson PA-C 111 [facility], Level [address] [place] [phone] documented as of this encounter Visit Diagnoses Diagnosis Morbid obesity ([facility])- Primary Morbid obesity S/P laparoscopic sleeve gastrectomy Bariatric surgery status BMI 32.0-32.9,adult Body Mass Index 32.0-32.9, adult documented in this encounter Discontinued Medications Medication Sig Discontinue Reason Start Date End Da te omeprazole (PRILOSEC) 40 mg capsule Take 1 capsule by mouth daily. Reorder 09/22/2021 09/21/2022 documented as of this encounter Care Teams Cloth Wire Weaver Relationship Specialty Start Date End Date Curtis Burns MD [address] [facility] [address] [place] [address] PCP - General Emergency Medicine 07/06/22 Juma Herrera MD [address] [facility] [place] [address] 12/08/18 documented as of this encounter
--- OUTSIDE RECORDS SUMMARY | 2024-04-22 23:46 | XMS_ITS | Encounter Summary ---
Author Organization [facility] Address [address] [place] [address] Care Team Providers Care Slasher Name Role Phone Juma Herrera MD Unavailable Curtis Burns MD Primary Care Provider [phone] Encounter Details Date Type Department Care Team (Late st Contact Info) Description 05/02/2023 Orders Only [facility] Neurology - S [place] [address] [place] [phone] Kj Gloria MD PhD [address] [place] [address] 2 [place] [phone] Social History Tobacco Use Types Packs/Day Years [...] every 28 days. 3 mL 05/02/2023 08/02/2023 documented in this encounter Plan of Treatment Upcoming Encounters Date Type Department Care Team (Late st Contact Info) Description 04/27/2024 14:30 EDT Telemedicine [facility] Neurology - [address] [phone] Kj Gloria MD PhD 1 [facility] Level [address] [place] [phone] 04/30/2024 9:30 EDT Office Visit [facility] Interventional Pain 62 [facility] [place], [place] [phone] Catalino Garrett MD 62 [facility] [address] [place] [address] 09/18/2024 11:00 EST Office Visit [facility] Bariatric Surgery - [place] [address] [place], [place] [address] Allen Thompson PA-C 111 [facility], Level [address] [place] [address] documented as of this encounter Visit Diagnoses Not on filedocumented in this encounter Discontinued Medications Medication Sig Discontinue Reason Start Date End Da te erenumab-aooe (AIMOVIG AUTOINJECTOR) 140 mg/mL auto-injector Inject 1 mL into the skin every 28 days. Reorder 11/20/2022 05/02/2023 documented as of this encounter Care Teams Slasher Relationship Specialty Start Date End Date Curtis Burns MD 26 [facility] [address] [place] [address] PCP - General Emergency Medicine 07/06/22 Juma Herrera MD [address] [place] [address] 12/08/18 documented as of this encounter
--- OUTSIDE RECORDS SUMMARY | 2024-04-22 23:47 | XMS_ITS | Encounter Summary ---
Author Organization [facility] Address [address] [place] [address] Care Team Providers Care Stage Electrician Helper Name Role Phone Juma Herrera MD Unavailable [facility] Primary Care Provider [phone] Encounter Details Date Type Department Care Team (Late st Contact Info) Description 06/06/2022 Specialty Pharmacy [facility] Ambulatory Pharmacy - Main [address] [id number] Yuri Montgomery, [facility] Social History Tobacco Use Types Packs/Day Years [...] as of this encounter Progress Notes * Tesha Blanca - 06/06/2022 1545 EDT [facility] Specialty Pharmacy Delivery Information Hours: Saturday-Saturday 8:30am - 5:00pm *Pharmacist available account manager education 25/03 Delivery Service: FedEx Delivery Window: None Specified Date of Delivery: 06/14/22 Tracking # : [id number] documented in this encounter Plan of Treatment Upcoming Encounters Date Type Department Care Team (Late st Contact Info) Description 04/27/2024 14:30 EDT Telemedicine [facility] Neurology [address] [address] Kj Gloria MD PhD 1 [facility] 2 [place] [phone] 04/30/2024 9:30 EDT Office Visit [facility] Interventional Pain [address] [place], [place] [phone] Catalino Garrett MD 62 [facility] [address] [place] [address] 09/18/2024 11:00 EST Office Visit [facility] Bariatric Surgery - [place] [address] [place], [place] [address] Allen Thompson PALizettC 111 [facility], Level 5 [place] [phone] documented as of this encounter Visit Diagnoses Not on filedocumented in this encounter Care Teams Stage Electrician Helper Relationship Specialty Start Date End Date [facility] [place] [facility], Mp [address] [place] [address] PCP - General 02/01/22 07/05/22 Juma Herrera MD [address] [facility] [place] [phone] 12/08/18 documented as of this encounter
--- OUTSIDE RECORDS SUMMARY | 2024-04-22 23:47 | XMS_ITS | Encounter Summary ---
Author Organization [facility] Address [address] [place] [address] Care Team Providers Care Parachute Repairer Name Role Phone Juma Herrera MD Unavailable [facility], Primary Care Provider [phone] Reason for Visit * Reason Comments Neck Pain bilateral * Office Procedure (Routine) - Specialty Report Received Specialty Diagnoses / Procedures Referred By Wili mireles Referred To Contact Pain Medicine Diagnoses Neck pain Procedures NE NJX DX/THER SBST INTRLMNR CRV/THRC W/IMG GDN [facility] 62 [facility] [place] [address] Catalino Garrett MD [address] [address] Referral ID Status Reason Start Date Expiration Date V isits Requested Visits Authorized [id number] Specialty Report Received 1 1 Encounter Details Date Type Department Care Team (Latest Contact Info) Description 02/01/2022 8:45 EDT Procedure visit [facility] Interventional Pain 62 [facility] [place] [address] Catalino Garrett MD 62 [address] [facility] [address] [place] [address] Radiculopathy, cervical region (Primary Dx) Social [...] ??F) 02/01/2022 08 EDT Respiratory Rate 18 02/01/2022925 EDT Oxygen Saturation 99% 02/01/2022802 EDT Inhaled [...] this encounter Patient Instructions * Patient Instructions* Kaila Lovell RN - 02/01/2022 8:45 EDT [facility] [address] [address] Patient Instructions You have had [...] inserted becomes hot, red, swollen, or increasingly tender,or if you develop a fever (100.5 or [...] documented in this encounter Progress Notes * Mbael Montgomery MA - 02/01/2022 0845 EDT [facility] Rooming Note Does patient have a Marketing Admin? yes Is patient NPO? (Solids since midnight [...] the 2 weeks? no Other: no * Kaila Lovell RN - 02/01/2022 0845 EDT ATTENTION: [...] was completed. * Catalino Garrett MD - 02/01/2022 0845 EDT Patient Name: Tia Rooney : 1975 Date of Service: 02/01/2022 Therapeutic Massage Technician: Gerry MEHTA Clinical Research Manager: none Procedure: Therapeutic cervical epidural steroid injections [...] aspiration, 80 mg Depo-Medrol and 2 ml Normal Saline were injected. [...] Description 04/27/2024 14:30 EDT Telemedicine [facility] Neurology - [address] [place] [address] [place], [place] [address] Kj Gloria MD PhD [address] [place] [address], Level [address] [place] [phone] 04/30/2024 9:30 EDT Office Visit [facility] Interventional Pain 62 [facility] [place], [place] [phone] Catalino Garrett MD 62 [facility] [address] [place] [address] 09/18/2024 11:00 EST Office Visit [facility] Bariatric Surgery - [place] [address] [place], [place] [address] Allen Thompson PA-C 111 [facility], Level 5 [place] [phone] documented as of this encounter Visit Diagnoses Diagnosis Radiculopathy, cervical region- Primary Brachial neuritis or radiculitis nos documented in this encounter Administered Medications Inactive Administered Medications - up to 3 most recent administrations Medication Order MAR Action Action Date Dose Rate Site dexAMETHasone (DECADRON) injection 10 mg 10 mg, neural-axial, NOW X1, 1 dose, On Karen 02/01/22 at 0930, Routine Given by Other 02/01/2022 9:25 EDT 10 mg Iohexol (OMNIPAQUE 180) injection 10 mL 10 mL, neural-axial, NOW X1, 1 dose, On Karen 02/01/22 at 0930, Routine Given by Other 02/01/2022 9:25 EDT 2 mL documented in this encounter Care Teams Parachute Repairer Relationship Specialty Start Date End Date [facility], Mp [address] [place] [address] PCP - General 02/01/22 07/05/22 Juma Herrera MD [address] [place] [phone] 12/08/18 documented as of this encounter
--- OUTSIDE RECORDS SUMMARY | 2024-04-22 23:47 | XMS_ITS | Encounter Summary ---
Author Organization [facility] Address [address] [place] [address] Care Team Providers Care House Wirer Helper Name Role Phone Juma Herrera MD Unavailable [facility] Primary Care Provider [phone] Encounter Details Date Type Department Care Team (Late st Contact Info) Description 07/03/2022 Specialty Pharmacy [facility] Ambulatory Pharmacy - Main [address] [address] Jj Verduzco [facility] Social History Tobacco Use Types Packs/Day Years [...] as of this encounter Progress Notes * Светлана Felipe - 07/03/2022 1149 EDT [facility] Specialty Pharmacy Delivery Information Hours: Saturday-Saturday 8:30am - 5:00pm *Pharmacist available education counselor 25/03 Delivery Service: FedEx Delivery Window: None Specified Date of Delivery: 07/11/22 Tracking # : [id number] documented in this encounter Plan of Treatment Upcoming Encounters Date Type Department Care Team (Late st Contact Info) Description 04/27/2024 14:30 EDT Telemedicine [facility] Neurology [address] [phone] Kj Gloria MD PhD 1 [facility] 2 [place] [phone] 04/30/2024 9:30 EDT Office Visit [facility] Interventional Pain [address] [place] [address] Catalino Garrett MD 62 [facility] [address] [place] [address] 09/18/2024 11:00 EST Office Visit [facility] Bariatric Surgery - [place] [address] [place], [place] [address] Allen Thompson PA-C 111 [facility], Level 5 [place] [phone] documented as of this encounter Visit Diagnoses Not on filedocumented in this encounter Care Teams House Wirer Helper Relationship Specialty Start Date End Date [facility], Mp [address] [place] [address] PCP - General 02/01/22 07/05/22 Juma Herrera MD [address] [facility] [place] [phone] 12/08/18 documented as of this encounter
--- OUTSIDE RECORDS SUMMARY | 2024-04-22 23:47 | XMS_ITS | Encounter Summary ---
Author Organization [facility] Address [address] [place] [address] Care Team Providers Care Bit Welder Name Role Phone Juma Herrera MD Unavailable Shonda Sánchez [facility] Primary Care Provider [phone] Encounter Details Date Type Department Care Team (Latest Contact Info) Description 12/05/2021 11:15 EDT Ancillary Procedure [facility] Sports Medicine Program - [address] [place], [place] [id number] Chronic right shoulder pain Social History Tobacco [...] Contact Info) Description 04/27/2024 14:30 EDT Telemedicine [facility] Neurology - S [place] 1 [place], [place] [address] Kj Gloria MD PhD 1 [facility] Level 2 [place] [phone] 04/30/2024 9:30 EDT Office Visit [facility] Interventional Pain 62 [facility] [place], [place] [phone] Catalino Garrett MD 62 [facility] [address] [place] [address] 09/18/2024 11:00 EST Office Visit [facility] Bariatric Surgery - [place] [address] [place], [place] [address] Allen Thompson PALizettC 111 [facility], Level 5 [place] [phone] documented as of this encounter Procedures Procedure Name Priority Date/Time Associated Diagnosis Comments POC MSK US SHOULDER Routine 12/05/2021 1 5:16 EDT Chronic right shoulder pain documented in this encounter Results * POC MSK US SHOULDER (12/05/2021 15:16 EDT) Narrative [facility] POINT OF CARE - 12/05/2021 15:16 EDT This is a non-reportable exam. Jun Balbuena MD G POC ORDERAB LES [facility] POINT OF CARE documented in this encounter Visit Diagnoses Diagnosis Chronic right shoulder pain Pain in joint, shoulder region documented in this encounter Care Teams Bit Welder Relationship Specialty Start Date End Date Shonda Sánchez NP [address] [place] [address] PCP - General 03/14/21 01/31/22 Juma Herrera MD [address] [facility] [address] 12/08/18 documented as of this encounter
--- OUTSIDE RECORDS SUMMARY | 2024-04-22 23:47 | XMS_ITS | Encounter Summary ---
Author Organization [facility] Address [address] [place] [address] Care Team Providers Care Manager Track Name Role Phone Juma Herrera MD Unavailable Shonda Sánchez NP Primary Care Provider [phone] Encounter Details Date Type Department Care Team (Late st Contact Info) Description 11/22/2021 Specialty Pharmacy [facility] Ambulatory Pharmacy - Main [place] [address] [place], [place] [phone] Yee Rodriguez, [facility] [address] [facility] 23 [place] [address] Social History Tobacco Use Types Packs/Day [...] Contact Info) Description 04/27/2024 14:30 EDT Telemedicine [facility] Neurology - S [address] [address] Kj Gloria MD PhD 1 [facility] 2 [place] [phone] 04/30/2024 9:30 EDT Office Visit [facility] Interventional Pain [address] [place] [address] Catalino Garrett MD 62 [facility] [address] [place] [address] 09/18/2024 11:00 EST Office Visit [facility] Bariatric Surgery [address] [address] Allen Thompson, PA-C 111 [facility], Level 5 [place] [phone] documented as of this encounter Visit Diagnoses Not on filedocumented in this encounter Care Teams Manager Track Relationship Specialty Start Date End Date Shonda Sánchez NP [address] [place] [address] [address] [place] [phone] PCP - General 03/14/21 01/31/22 Juma Herrera MD [address] [facility] [place], [place] [phone] 12/08/18 documented as of this encounter
--- OUTSIDE RECORDS SUMMARY | 2024-04-22 23:47 | XMS_ITS | Encounter Summary ---
Author Organization [facility] Address [address] [place] [address] Care Team Providers Care Director Family Name Role Phone Juma Herrera MD Unavailable [facility] Primary Care Provider [phone] Encounter Details Date Type Department Care Team (Late st Contact Info) Description 05/10/2022 Specialty Pharmacy [facility] Ambulatory Pharmacy - Main [address] [address] Kelechi Panda [facility] Social History Tobacco Use Types [...] as of this encounter Progress Notes * Verena Irving - 05/10/2022 1347 EDT [facility] Specialty Pharmacy Delivery Information Hours: Saturday-Saturday 8:30am - 5:00pm *Pharmacist available international marketing intern 25/03 Delivery Service: FedEx Delivery Window: None Specified Date of Delivery: Saturday05/16/22 Tracking # : [id number] documented in this encounter Plan of Treatment Upcoming Encounters Date Type Department Care Team (Late st Contact Info) Description 04/27/2024 14:30 EDT Telemedicine [facility] Neurology - [address] [address] Kj Gloria MD PhD 1 [facility] 2 [place] [phone] 04/30/2024 9:30 EDT Office Visit [facility] Interventional Pain 62 [place], [place] [phone] Catalino Garrett MD 62 [facility] [address] [place] [address] 09/18/2024 11:00 EST Office Visit [facility] Bariatric Surgery - [place] [address] [place] [address] Allen Thompson PALizettC 111 [facility], Level 5 [place] [phone] documented as of this encounter Visit Diagnoses Not on filedocumented in this encounter Care Teams Director Family Relationship Specialty Start Date End Date [facility], Mp [address] [place] [address] PCP - General 02/01/22 07/05/22 uJma Herrera MD [address] [facility] [place] [phone] 12/08/18 documented as of this encounter
--- OUTSIDE RECORDS SUMMARY | 2024-04-22 23:47 | XMS_ITS | Encounter Summary ---
Author Organization [facility] Address [address] [place] [address] Care Team Providers Care Baggage And Mail Agent Name Role Phone Juma Herrera MD Unavailable Shonda Sánchez NP Primary Care Provider [phone] [facility], Mp Primary Care Provider [phone] Curtis Burns MD Primary Care Provider [phone] Encounter Details Date Type Department Care Team (Late st Contact Info) Description 12/20/2021 Specialty Pharmacy [facility] Ambulatory Pharmacy - Main [address] [address] Kelechi Panda [facility] Social History Tobacco Use Types [...] Contact Info) Description 04/27/2024 14:30 EDT Telemedicine [facility] Neurology - S [place] 1 [place], [place] [address] Kj Gloria MD PhD 1 [facility] 2 [place] [phone] 04/30/2024 9:30 EDT Office Visit [facility] Interventional Pain 62 [place], [place] [phone] Catalino Garrett MD 62 [facility] [address] [place] [address] 09/18/2024 11:00 EST Office Visit [facility] Bariatric Surgery [address] [address] Allen Thompson PA-C 111 [facility], Level 5 [place] [phone] documented as of this encounter Visit Diagnoses Not on filedocumented in this encounter Care Teams Baggage And Mail Agent Relationship Specialty Start Date End Date Shonda Sánchez NP [address] [place] [address] [address] [place] [phone] PCP - General 03/14/21 01/31/22 [facility], Mp [address] [place] [address] PCP - General 02/01/22 07/05/22 Curtis Burns MD 26 [facility] [address] [place] [address] PCP - General Emergency Medicine 07/06/22 Juma Herrera MD [address] [facility] [place] [phone] 12/08/18 documented as of this encounter
--- OUTSIDE RECORDS SUMMARY | 2024-04-22 23:47 | XMS_ITS | Encounter Summary ---
Author Organization [facility] Address [address] [place] [address] Care Team Providers Care Respiratory Supervisor Name Role Phone Juma Herrera MD Unavailable Shonda Sánchez NP Primary Care Provider [phone] Encounter Details Date Type Department Care Team (Late st Contact Info) Description 10/24/2021 Special[address] [facility] Ambulatory Pharmacy - Main [place] [address] [place], [place] [phone] Yee Rodriguez, [facility] 133 [address] [facility] 23 [place] [address] Social History Tobacco Use Types [...] 04/27/2024 14:30 EDT Telemedicine [facility] Neurology - S [address] [address] Kj Gloria MD PhD 1 [facility] 2 [place] [phone] 04/30/2024 9:30 EDT Office Visit [facility] Interventional Pain [address] [place] [address] Catalino Garrett MD 62 [facility] [address] [place] [address] 09/18/2024 11:00 EST Office Visit [facility] Bariatric Surgery [address] [address] Allen Thompson, PA-C 111 [facility], Level 5 [place] [phone] documented as of this encounter Visit Diagnoses Not on filedocumented in this encounter Care Teams Respiratory Supervisor Relationship Specialty Start Date End Date Shodna Sánchez NP [address] [place] [address] [address] [place] [phone] PCP - General 03/14/21 01/31/22 Juma Herrera MD [address] [facility] [place] [phone] 12/08/18 documented as of this encounter
--- OUTSIDE RECORDS SUMMARY | 2024-04-22 23:47 | XMS_ITS | Encounter Summary ---
Author Organization [facility] Address [address] [place] [address] Care Team Providers Care Lean Manufacturing Specialist Name Role Phone Juma Herrera MD Unavailable [facility] Primary Care Provider [phone] Reason for Visit * Reason Onset Date Comments Appointment Related 04/30/2022 Encounter Details Date Type Department Care Team (Late st Contact Info) Description 04/30/2022 Telephone [facility] Interventional Pain [address] [place] [address] Catalino Garrett MD 62 [facility] [address] [place] [address] Appointment Related Social History Tobacco [...] encounter Miscellaneous Notes * Telephone Encounter - Sandi Alvarez MA - 04/30/2022 0929 EDT JULIAN attempted to contact patient as reminder about stopping her Multi Vit 7 days ahead of her procedure . LM to return call. documented in this encounter Plan of Treatment Upcoming Encounters Date Type Department Care Team (Late st Contact Info) Description 04/27/2024 14:30 EDT Telemedicine [facility] Neurology - [facility] 1 [place], [place] [address] Kj Gloria MD PhD 1 [facility] Level 2 [place] [phone] 04/30/2024 9:30 EDT Office Visit [facility] Interventional Pain 62 [facility] [place], [place] [phone] Catalino Garrett MD 62 [facility] [address] [place] [address] 09/18/2024 11:00 EST Office Visit [facility] Bariatric Surgery - [place] [address] [place] [address] Allen Thompson PA-C 111 [facility], Level 5 [place] [phone] documented as of this encounter Visit Diagnoses Not on filedocumented in this encounter Care Teams Lean Manufacturing Specialist Relationship Specialty Start Date End Date [facility], Mp [address] [place] [address] PCP - General 02/01/22 07/05/22 Juma Herrera MD [address] [facility] [place] [address] 12/08/18 documented as of this encounter
--- OUTSIDE RECORDS SUMMARY | 2024-04-22 23:47 | XMS_ITS | Encounter Summary ---
Author Organization [facility] Address [address] [place] [address] Care Team Providers Care Contract Manager Name Role Phone Juma Herrera MD Unavailable [facility], Primary Care Provider [phone] Reason for Visit * Reason Comments Follow-up Telemedicine Video Visit Encounter Details Date Type Department Care Team (Late st Contact Info) Description 06/25/2022 11:00 EDT Telemedicine [facility] Neurology - [place] [address] [place] [address] [id number] Kj Gloria MD PhD 1 [facility] Level 2 [place] [address] Chronic migraine without aura without [...] Notes * Kj Gloria MD PhD - 06/25/2022 1100 EDT Neurology Consult Follow Up Note Date of Service: 06/25/2022 PCP: Serjio [facility] Follow up for: migraine Chief Complaint Patient [...] : home The location of the provider: [place] The following people and their roles were present for today's visit: Appointment Provider: Kj Gloria MD PhD I spent a total of > 30 minutes on the date of this encounter meeting with the patient and reviewing documentation/coordinating care as described in the above note. 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 She was last seen in follow-up via Zoom on 12/18/21. At that time, she reported continued frequent headaches but an improvement in headache frequency onAimovig 70mg sc Q 28 days (without constipation). We increased Aimovig dosage to 140mg sc Q 28 days and re-prescribed rizatriptan 10mg PRN. She has not noted any new side effects on the higher dose. Starting 12/30/21, she had a more severe and persistent migraine attack and was subsequently evaluated at the ED in [facility]. Over the past 3 months, she has had ~ 3 mild headache days per month, apart from a 2-week stretch of transient mild morning headaches earlier this month. I am so grateful. So grateful. Because the migraine used to drive me crazy. Aimovig is amazing. Medications and Allergies: Outpatient Medications Marked as Taking for the 06/25/22 encounter (Telemedicine) with Kj Gloria MD PhD [...] to =90mg dose ??? erenumab-aooe (AIMOVIG AUTOINJECTOR) 140 mg/mL auto-injector Inject 1 mL into the skin every 28days. 3 mL 3 ??? MEDICAL MARIJUANA as needed. ??? methylphenidate [...] beer Assessment and Plan: Chronic migraine. Continue current regimen Aimovig 140mg, rizatriptan 10mg PRN. Keep headache record. Return to clinic 6 months. Tia was seen today for follow-up and telemedicine video visit. Diagnoses and all orders for this visit: Chronic migraine without aura without status migrainosus, not intractable Kj Gloria MD PhD 06/25/2022 11:04 documented in this encounter Plan of Treatment Upcoming Encounters Date Type Department Care Team (Late st Contact Info) Description 04/27/2024 14:30 EDT Telemedicine [facility] Neurology - [address] [id number] Kj Gloria MD PhD 1 [facility], Level 2 [place] [address] 04/30/2024 9:30 EDT Office Visit [facility] Interventional Pain [address] [place] [address] Catalino Garrett MD 62 [facility] [address] [place] [address] 09/18/2024 11:00 EST Office Visit [facility] Bariatric Surgery - [place] [address] Allen Thompson PA-C 111 [facility], Level 5 [place] [address] documented as of this encounter Visit Diagnoses Diagnosis Chronic migraine without aura without status migrainosus, not intractable- Primary Chronic migraine without aura, without mention of intractable migraine without mention of status migrainosus documented in this encounter Care Teams Contract Manager Relationship Specialty Start Date End Date [facility] Mp [address] [place] [address] PCP - General 02/01/22 07/05/22 Juma Herrera MD [address] [facility] [place] [address] 12/08/18 documented as of this encounter
--- OUTSIDE RECORDS SUMMARY | 2024-04-22 23:47 | XMS_ITS | Encounter Summary ---
Author Organization [facility] Address [address] [place] [address] Care Team Providers Care Drafter Cartographic Name Role Phone Juma Herrera MD Unavailable Shonda Sánchez NP Primary Care Provider [phone] Encounter Details Date Type Department Care Team (Late st Contact Info) Description 09/25/2021 Specialty Pharmacy [facility] - Main [place] [address] [place], [place] [phone] Yee Rodriguez, [facility] [address] [facility] [address] [place] [address] Social History Tobacco Use Types [...] Contact Info) Description 04/27/2024 14:30 EDT Telemedicine [facility] Neurology - S [address] [id number] Kj Gloria MD PhD 1 [facility] 2 [place] [phone] 04/30/2024 9:30 EDT Office Visit [facility] Interventional Pain [address] [place] [address] Catalino Garrett MD 62 [facility] [address] [place] [address] 09/18/2024 11:00 EST Office Visit [facility] Bariatric Surgery [address] [phone] Allen Thompson, PA-C 111 [facility], Level 5 [place] [phone] documented as of this encounter Visit Diagnoses Not on filedocumented in this encounter Care Teams Drafter Cartographic Relationship Specialty Start Date End Date Shonda Sánchez NP [address] [place] [address] [address] [place] [phone] PCP - General 03/14/21 01/31/22 Juma Herrera MD [address] [facility] [place] [phone] 12/08/18 documented as of this encounter
--- OUTSIDE RECORDS SUMMARY | 2024-04-22 23:47 | XMS_ITS | Encounter Summary ---
Author Organization [facility] Address [address] [place] [address] Care Team Providers Care Sales Operations Lead Name Role Phone Juma Herrera MD Unavailable Shonda Sánchez FORENSIC AUDIT EXPERT Primary Care Provider [phone] Reason for Visit * Reason Onset Date Comments Medications Refill 12/20/2021 Encounter Details Date Type Department Care Team (Late st Contact Info) Description 12/20/2021 Refill [facility] Neurology - S [address] [id number] Kj Gloria MD PhD [address] [place] [address] 2 [place] [address] Medications Refill Social History Tobacco [...] 28 days. 3 mL 3 12/20/2021 11/20/2022 documented in this encounter Miscellaneous Notes * Telephone Encounter - Kizzy Childers - 12/20/2021 1007 EDT Medication Request Medication: Aimovig Medication refill: yes Medication dose change: increased 140mg Refill due: 12/20/21 [facility] Next appt: Visit date not found documented in this encounter Plan of Treatment Upcoming Encounters Date Type Department Care Team (Late st Contact Info) Description 04/27/2024 14:30 EDT Telemedicine [facility] Neurology - [address] [address] Kj Gloria MD PhD 1 [facility], Level 2 [place] [phone] 04/30/2024 9:30 EDT Office Visit [facility] Interventional Pain [address] [place], [place] [phone] Catalino Garrett MD 62 [facility] [address] [place] [address] 09/18/2024 11:00 EST Office Visit [facility] Bariatric Surgery - [place] [address] [place] [address] Allen Thompson PA-C 111 [facility], Level [address] [place] [address] documented as of this encounter Visit Diagnoses Not on filedocumented in this encounter Discontinued Medications Medication Sig Discontinue Reason Start Date End Da te erenumab-aooe (AIMOVIG AUTOINJECTOR) 70 mg/mL auto-injector Inject 70 mg into the skin every 28 days. 03/06/2021 12/20/2021 documented as of this encounter Care Teams Sales Operations Lead Relationship Specialty Start Date End Date Shonda Sánchez NP [address] [facility] [address] [place] [phone] PCP - General 03/14/21 01/31/22 Juma Herrera MD [address] [facility] [address] 12/08/18 documented as of this encounter
--- OUTSIDE RECORDS SUMMARY | 2024-04-22 23:47 | XMS_ITS | Encounter Summary ---
Author Organization [facility] Address [address] [place] [address] Care Team Providers Care Agricultural Produce Commission Agent Name Role Phone Juma Herrera MD Unavailable Shonda Sánchez NP Primary Care Provider [phone] Reason for Referral * Radiology Services (Routine/Next Available) - Authorization Not Required Specialty Diagnoses / Procedures Referred By Contac t Referred To Contact Diagnoses Chronic right shoulder pain Procedures XR LUMBAR SPINE 2-3 VIEWS Jun Balbuena MD [address] [place] [phone] [facility] Referral ID Status Reason Start Date Expiration Date Visits Requested Visits Authorized [id number] Authorization Not Required 09/26/2021 1 1 Encounter Details Date Type Department Care Team (Late st Contact Info) Description 09/26/2021 Orders Only [facility] Sports Medicine Program - [address] [place] [address] Jun Balbuena MD [address] [place] [phone] Chronic right shoulder pain (Primary Dx) [...] Description 04/27/2024 14:30 EDT Telemedicine [facility] Neurology - [address] [phone] Kj Gloria MD PhD 1 [facility] 2 [place] [phone] 04/30/2024 9:30 EDT Office Visit [facility] - Interventional Pain 62 [place] [address] Catalino Garrett MD 62 [facility] [address] [place] [address] 09/18/2024 11:00 EST Office Visit [facility] Bariatric Surgery - [place] [address] [place] [address] Allen Thompson PA-C [address] [place] [address], Level [address] [place] [phone] documented as of this encounter Results * XR LUMBAR SPINE 2-3 VIEWS (10/05/2021 12:42 EST) Anatomical Region Laterality Modality Spine Computed Radiogr aphy 10/06/2021 10:4 4 EST Impressions 10/06/2021 10:44 EST 1. Status post L5-S1 posterior fusion without evidence of hardware failure. 2. Spinal stimulator as above. Narrative 10/06/2021 10:44 EST XR LUMBAR SPINE 2-3 VIEWS ??10/05/2021 2:15 PM Clinical History/Comments: shoulder mri, stimulator check prior. Technique: AP and lateral views of the lumbar spine. Comparison: Total spine radiographs 07/18/2021 Findings: Status post posterior decompression and instrumented fusion at L5-S1 with vertical joining rods and pedicle screws. Hardware is intact without evidence of loosening. Spinal stimulator and leads are seen posterior to the lower lumbar spine and sacrum. Surgical yfn overlying the right upper quadrant and pelvis. Procedure Note Javier Marcus MD - 10/06/2021 XR LUMBAR SPINE 2-3 VIEWS 10/05/2021 2:15 PM Clinical History/Comments: shoulder mri, stimulator check prior. Technique: AP and lateral views of the lumbar spine. Comparison: Total spine radiographs 07/18/2021 Findings: Status post posterior decompression and instrumented fusion at L5-S1 withvertical joining rods and pedicle screws. Hardware is intact withoutevidence of loosening. Spinal stimulator and leads are seen posterior to the lower lumbar spineand sacrum. Surgical yfn overlying the right upper quadrant and pelvis. IMPRESSION 1. Status post L5-S1 posterior fusion without evidence of hardwarefailure. 2. Spinal stimulator as above. Jun Balbuena MD IMG DIAGNOSTIC PARMINDER GING ORDERABLES documented in this encounter Visit Diagnoses Diagnosis Chronic right shoulder pain- Primary Pain in joint, shoulder region Chronic right shoulder pain Pain in joint, shoulder region documented in this encounter Care Teams Agricultural Produce Commission Agent Relationship Specialty Start Date End Date Shonda Sánchez NP [address] [place] [address] [facility] - General 03/14/21 01/31/22 Juma Herrera MD [address] [facility] [place] [phone] 12/08/18 documented as of this encounter
--- OUTSIDE RECORDS SUMMARY | 2024-04-22 23:47 | XMS_ITS | Encounter Summary ---
Author Organization [facility] Address [address] [place] [address] Care Team Providers Care Field Liability Generalist Name Role Phone Juma Herrera MD Unavailable Shonda Sánchez SCRAP DROP ENGINEER Primary Care Provider [phone] Encounter Details Date Type Department Care Team (Late st Contact Info) Description 01/17/2022 Specialty Pharmacy [facility] Ambulatory Pharmacy - [address] [phone] Kelechi Panda [facility] Social History Tobacco Use Types [...] Info) Description 04/27/2024 14:30 EDT Telemedicine [facility] Neurology - S [place] 1 [place], [place] [address] Kj Gloria MD PhD 1 [facility] Level 2 [place] [phone] 04/30/2024 9:30 EDT Office Visit [facility] Interventional Pain [address] [place] [address] Catalino Garrett MD 62 [facility] [address] [place] [address] 09/18/2024 11:00 EST Office Visit [facility] Bariatric Surgery [facility] [address] [place], [place] [phone] Allen Thompson PA-C 111 [facility], Level [address] [place] [phone] documented as of this encounter Visit Diagnoses Not on filedocumented in this encounter Care Teams Field Liability Generalist Relationship Specialty Start Date End Date Shonda Sánchez NP 195 [facility] [address] [place] [phone] PCP - General 03/14/21 01/31/22 Juma Herrera MD [address] [facility] [place] [phone] 12/08/18 documented as of this encounter
--- OUTSIDE RECORDS SUMMARY | 2024-04-22 23:47 | XMS_ITS | Encounter Summary ---
Author Organization [facility] Address [address] [place] [address] Care Team Providers Care Lieutenant Shift Supervisor Name Role Phone Juma Herrera MD Unavailable Shonda Sánchez INFANTRY OPERATIONS SPECIALIST Primary Care Provider [phone] Reason for Visit * Reason Comments Follow-up Telemedicine Video Visit Encounter Details Date Type Department Care Team (Late st Contact Info) Description 12/18/2021 11:30 EDT Telemedicine [facility] Neurology - S [address] [id number] Kj Gloria MD PhD 1 [facility] 2 [place] [address] Chronic migraine without aura without [...] Dispensed Refills Start Date End Da te rizatriptan (MAXALT) 10 mg tablet Take 1 Tablet by mouth as needed for Migraine. May repeat in 2 hours if needed. Not to exceed to 8 days per month 12 Tablet 11 12/18/2021 05/17/2022 documented in this encounter Progress Notes * Master Hill MD - 12/18/2021 1130 EDT [...] headache clinic, wondering about interactions with Aimovig. She has tried sumatriptan (6mg tab) and rizatriptan tabs [...] Inject 70 mg into the skin every 28days. 3 Syringe 3 ??? LORazepam (ATIVAN) 0.5 [...] as needed for Migraine. May repeat in 2hours if needed. Not to exceed to 8 days per month Seen with Dr. Gloria. Master Hill MD 12/18/2021 11:56 Neurology PGY-3 * Kj Gloria MD PhD - 12/18/2021 1130 [...] mental health care. Patient understands that they maybe responsible for copays, deductible or coinsurance for [...] the resident's/fellow's note. RE MD Juani, PhD documented in this encounter Plan of Treatment Upcoming Encounters Date Type Department Care Team (Late st Contact Info) Description 04/27/2024 14:30 EDT Telemedicine [facility] Neurology - S [place] [address] [place] [address] Kj Gloria MD PhD 1 [facility] 2 [place] [address] 04/30/2024 9:30 EDT Office Visit [facility] Interventional Pain [address] [place], [place] [phone] Catalino Garrett MD [address] [place] [address] 09/18/2024 11:00 EST Office Visit [facility] Bariatric Surgery - [place] [address] [place], [place] [address] Allen Thompson PA-C 111 [facility], Level [address] [place] [address] documented as of this encounter Visit Diagnoses Diagnosis Chronic migraine without aura without status migrainosus, not intractable- Primary Chronic migraine without aura, without mention of intractable migraine without mention of status migrainosus documented in this encounter Discontinued Medications Medication Sig Discontinue Reason Start Date End Da te rizatriptan (MAXALT) 10 mg tablet Take 10 mg by mouth once as needed. May repeat in 2 hours if needed 12/18/2021 documented as of this encounter Historical Medications * This list may reflect changes made after this encounter. Medication Sig Dispensed Refills Start Date End Date cloNIDine HCL (CATAPRES) 0.1 mg tablet Take 1 Tablet by mouth 2 times daily. added in this encounter Care Teams Lieutenant Shift Supervisor Relationship Specialty Start Date End Date Shonda Sánchez NP [address] [place] [address] [address] [place] [address] PCP - General 03/14/21 01/31/22 Juma Herrera MD [address] [facility] [place] [address] 12/08/18 documented as of this encounter
--- OUTSIDE RECORDS SUMMARY | 2024-04-22 23:47 | XMS_ITS | Encounter Summary ---
Author Organization [facility] Address [address] [place] [address] Care Team Providers Care Manager Clinical Research Name Role Phone Juma Herrera MD Unavailable Shonda Sánchez DIRECTOR PRISON Primary Care Provider [phone] Reason for Visit * Reason Onset Date Comments Appointment Related 01/08/2022 Encounter Details Date Type Department Care Team (Late st Contact Info) Description 01/08/[address] [facility] Interventional Pain 62 [facility] [place] [address] Catalino Garrett MD 62 [facility] [address] [place] [address] Appointment Related Social History Tobacco [...] encounter Miscellaneous Notes * Telephone Encounter - Jalyn Gibbons - 01/08/2022 0009 EDT Spoke with patient: Appointment for 01/09/[address] Garrett has to be canceled by the office as provider has a family emergency and is unable to be in clinic. New appointment date has not been made atthis time documented in this encounter Plan of Treatment Upcoming Encounters Date Type Department Care Team (Late st Contact Info) Description 04/27/2024 14:30 EDT Telemedicine [facility] Neurology - [address] [phone] Kj Gloria MD PhD 1 [facility] Level 2 [place] [phone] 04/30/2024 9:30 EDT Office Visit [facility] Interventional Pain 62 [facility] [place], [place] [phone] Catalino Garrett MD 62 [facility] [address] [place] [address] 09/18/2024 11:00 EST Office Visit [facility] Bariatric Surgery [facility] [address] [place], [place] [address] Allen Thompson PA-C [address] [place] [address], Level [address] [place] [address] documented as of this encounter Visit Diagnoses Not on filedocumented in this encounter Care Teams Manager Clinical Research Relationship Specialty Start Date End Date Shonda Sánchez NP [address] [place] [phone] PCP - General 03/14/21 01/31/22 Juma Herrera MD [address] [facility] [place] [phone] 12/08/18 documented as of this encounter
--- OUTSIDE RECORDS SUMMARY | 2024-04-22 23:47 | XMS_ITS | Encounter Summary ---
Author Organization [facility] Address [address] [place] [address] Care Team Providers Care Broke Worker Name Role Phone Juma Herrera MD Unavailable [facility], Primary Care Provider [phone] Encounter Details Date Type Department Care Team (Latest Contact Info) Description 05/17/2022 7:33 EDT - 05/17/2022 23:59 EDT Hospital Encounter [facility] Pain Clinic Xray [address] [place], [place] [phone] Discharge Disposition: Home or Self Care Social [...] EDT Telemedicine [facility] Neurology - S [place] 1 [place], [place] [address] Kj Gloria MD PhD 1 [facility] Level 2 [place] [phone] 04/30/2024 9:30 EDT Office Visit [facility] Interventional Pain [address] [place] [address] Catalino Garrett MD 62 [facility] [address] [place] [address] 09/18/2024 11:00 EST Office Visit [facility] Bariatric Surgery [facility] [address] [place], [place] [phone] Allen Thompson PA-C 111 [facility], Level [address] [place] [address] documented as of this encounter Procedures Procedure Name Priority Date/Time Associated Diagnosis Comments [facility] [place] CERVICAL INJECTION Routine 05/17/2022 9:26 EDT documented in this encounter Results * PAIN CLINIC [place] CERVICAL INJECTION (05/17/2022 9:26 EDT) Narrative 05/17/2022 9:26 EDT This is a non-reportable exam. Catalino Garrett MD IMG OTHER IMAGING OR DERABLES documented in this encounter Visit Diagnoses Not on filedocumented in this encounter Care Teams Broke Worker Relationship Specialty Start Date End Date [facility] [address] [place] [address] PCP - General 02/01/22 07/05/22 Juma Herrera MD [address] [place] [phone] 12/08/18 documented as of this encounter
--- OUTSIDE RECORDS SUMMARY | 2024-04-22 23:47 | XMS_ITS | Encounter Summary ---
Author Organization [facility] Address [address] [place] [address] Care Team Providers Care Capital Campaign Fundraiser Name Role Phone Juma Herrera MD Unavailable [facility], Primary Care Provider [phone] Encounter Details Date Type Department Care Team (Latest Contact Info) Description 02/01/2022 7:45 EDT - 02/01/2022 23:59 EDT Hospital Encounter [facility] Xray [address] [place], [place] [id number] Discharge Disposition: Home or Self Care Social [...] Take as directed. 6 mL 11 02/21/2021 diphenhydrAMINE-acetam inophen 25-500 mg tablet Take 1 Tablet by mouth at bedtime as needed. 05/17/2022 erenumab-aooe (AIMOVIG AUTOINJECTOR) 140 mg/mL auto-injector Inject 1 mL into the skin every 28 days. 3 mL 3 12/20/2021 11/20/2022 LORazepam (ATIVAN) 0.5 mg tablet Take 0.5 mg by mouth at bedtime. 05/17/2022 omeprazole (PRILOSEC) 40 mg capsule Take 1 capsule by mouth daily. 90 capsule 3 09/22/2021 09/21/2022 oxyCODONE (ROXICODONE) 5 mg immediate release tablet Take 2 Tabs by mouth every 4 hours Hold for now while taking liquid form Daily Max: 60 mg 09/07/2015 05/17/2022 pediatric multivitamin (JUAN CHEW VIT) chewable tablet Take 1 Tab by mouth daily Hold for 2 weeks 09/07/2015 05/17/2022 potassium chloride (KLOR-CON) 20 mEq packet Take 20 mEq by mouth daily. 05/17/2022 rizatriptan (MAXALT) 10 mg tablet Take 1 Tablet by mouth as needed for Migraine. May repeat in 2 hours if needed. Not to exceed to 8 days per month 12 Tablet 11 12/18/2021 05/17/2022 documented as of this encounter Discharge Disposition Disposition Code Departure Means Destination Home or Self Care documented in this encounter Plan of Treatment Upcoming Encounters Date Type Department Care Team (Late st Contact Info) Description 04/27/2024 14:30 EDT Telemedicine [facility] Neurology - [address] [address] Kj Gloria MD PhD [address] [place] [address] [address] [place] [phone] 04/30/2024 9:30 EDT Office Visit [facility] Interventional Pain [address] [place] [address] Catalino Garrett MD [address] [facility] [address] [place] [address] 09/18/2024 11:00 EST Office Visit [facility] Bariatric Surgery - [address] [place] [address] Allen Thompson PA-C 111 [facility], [address] [place] [address] documented as of this encounter Procedures Procedure Name Priority Date/Time Associated Diagnosis Comments PAIN CLINIC [place] CERVICAL INJECTION Routine 02/01/2022 9:22 EDT documented in this encounter Results * PAIN CLINIC FL CERVICAL INJECTION (02/01/2022 9:22 EDT) Narrative 02/01/2022 9:22 EDT This is a non-reportable exam. Catalino Garrett MD IMG OTHER IMAGING OR DERABLES documented in this encounter Visit Diagnoses Not on filedocumented in this encounter Care Teams Capital Campaign Fundraiser Relationship Specialty Start Date End Date [facility] [place] [address] PCP - General 02/01/22 07/05/22 Juma Herrera MD [address] [facility] [place] [phone] 12/08/18 documented as of this encounter
--- OUTSIDE RECORDS SUMMARY | 2024-04-22 23:47 | XMS_ITS | Encounter Summary ---
Author Organization [facility] Address [address] [place] [address] Care Team Providers Care Inside Phone Sales Name Role Phone Juma Herrera MD Unavailable Shonda Sánchez JOURNEYMAN LEVEL ACOUSTIC ANALYST Primary Care Provider [phone] Reason for Visit * Reason Onset Date Comments Appointment Related 09/26/2021 Encounter Details Date Type Department Care Team (Late st Contact Info) Description 09/26/2021 Telephone [facility] Sports Medicine Program - [address] [address] Jun Balbuena MD [address] [place] [phone] Appointment Related Social History Tobacco Use Types [...] Info) Description 04/27/2024 14:30 EDT Telemedicine [facility] Neurology - [facility] [place] [address] [place], [place] [address] Kj Gloria MD PhD 1 [facility] Level 2 [place] [phone] 04/30/2024 9:[address] [facility] Interventional Pain 62 [facility] [place] [address] Catalino Garrett MD 62 [facility] [address] [place] [address] 09/18/2024 11:00 EST Office Visit [facility] Bariatric Surgery - [place] [address] [place] [address] Allen Thompson PA-C 111 [facility], [address] [place] [phone] documented as of this encounter Visit Diagnoses Not on filedocumented in this encounter Care Teams Inside Phone Sales Relationship Specialty Start Date End Date Shonda Sánchez NP [address] [place] [phone] PCP - General 03/14/21 01/31/22 Juma Herrera MD [address] [facility] [place] [address] 12/08/18 documented as of this encounter
--- OUTSIDE RECORDS SUMMARY | 2024-04-22 23:47 | XMS_ITS | Encounter Summary ---
Author Organization [facility] Address [address] [place] [address] Care Team Providers Care Incinerator Attendant Name Role Phone Juma Herrera MD Unavailable [facility], Primary Care Provider [phone] Encounter Details Date Type Department Care Team (Latest Contact Info) Description 05/03/2022 14:45 EDT Ancillary Procedure [facility] Sports Medicine Program [place] [address] Chronic right shoulder pain Social [...] Description 04/27/2024 14:30 EDT Telemedicine [facility] Neurology - [address] [place] [address] [place], [place] [address] Kj Gloria MD PhD 1 [facility] Level 2 [place] [phone] 04/30/2024 9:30 EDT Office Visit [facility] Interventional Pain 62 [facility] [place] [address] Catalino Garrett MD 62 [facility] [address] [place] [address] 09/18/2024 11:00 EST Office Visit [facility] Bariatric Surgery - [place] [address] [place], [place] [phone] Allen Thompson, PALizettC 111 [facility], [address] [place] [phone] documented as of this encounter Procedures Procedure Name Priority Date/Time Associated Diagnosis Comments POC MSK US SHOULDER Routine 05/03/2022 1 6:06 EDT Chronic right shoulder pain documented in this encounter Results * POC MSK US SHOULDER (05/03/2022 16:06 EDT) Narrative [facility] POINT OF CARE - 05/03/2022 16:06 EDT This is a non-reportable exam. Jun Balbuena MD IMG US POC ORDERAB LES [facility] POINT OF CARE documented in this encounter Visit Diagnoses Diagnosis Chronic right shoulder pain Pain in joint, shoulder region documented in this encounter Care Teams Incinerator Attendant Relationship Specialty Start Date End Date [facility] [address] [place] [address] PCP - General 02/01/22 07/05/22 Juma Herrera MD [address] [facility] [place] [address] 12/08/18 documented as of this encounter
--- OUTSIDE RECORDS SUMMARY | 2024-04-22 23:47 | XMS_ITS | Encounter Summary ---
Author Organization [facility] Address [address] [place] [address] Care Team Providers Care Electronic Warfare Officer Name Role Phone Juma Herrera MD Unavailable Shonda Sánchez NP Primary Care Provider [phone] Reason for Visit * Reason Comments Injections * Prior Authorization (See Order Priority) - Order Cancelled Specialty Diagnoses / Procedures Referred By Wili mireles Referred To Contact Orthopedic Surgery Diagnoses Chronic right shoulder pain Jun Balbuena MD [address] [place] [phone] [facility] Ortho Sports [address] [place] [address] [place] [address] Referral ID Status Reason Start Date Expiration Date Visits Requested Visits Authorized [id number] Order Cancelled Specialty Services Required 12/01/2021 1 1 Encounter Details Date Type Department Care Team (Latest Contact Info) Description 12/05/2021 11:15 EDT Procedure visit [facility] Sports Medicine Program - [place] [address] [place] [address] Jun Balbuena MD [address] [place] [phone] Impingement syndrome of shoulder, right (Primary Dx); Osteoarthritis of right acromioclavicular joint Social History Tobacco Use Types Packs/Day Years [...] Progress Notes * Jun Balbuena MD - 12/05/2021 1115 EDTAssociated Order(s): Medication Only Injection; Medication Only Injection Post-Procedure Diagnose(s): Impingement syndrome of shoulder, right; Osteoarthritis [...] Description 04/27/2024 14:30 EDT Telemedicine [facility] Neurology - [address] [place] [address] [place], [place] [address] Kj Gloria MD PhD 1 [facility], Level 2 [place] [phone] 04/30/2024 9:30 EDT Office Visit [facility] Interventional Pain 62 [facility] [place], [place] [phone] Catalino Garrett MD 62 [facility] [address] [place] [address] 09/18/2024 11:00 EST Office Visit [facility] Bariatric Surgery - [place] [address] [place], [place] [address] Allen Thompson PA-C 111 [facility], [address] [place] [phone] documented as of this encounter Procedures Procedure Name Priority Date/Time Associated Diagnosis Comments MEDICATION ONLY INJECTION Routine 12/05/2021 11:15 EDT Osteoarthritis of right acromioclavicular joint MEDICATION ONLY INJECTION Routine 12/05/2021 11:15 EDT Impingement syndrome of shoulder, right documented in this encounter Results * Medication Only Injection (12/05/2021 11:15 EDT) Narrative [facility] POINT OF CARE - 12/05/2021 11:15 EDT Jun Balbuena MD ? 12/05/2021 12:38 Medication Only Injection on 12/05/2021 11:15 Medications: 40 mg triamcinolone acetonide 40 mg/mL; 1 mL bupivacaine (PF) 0.5%; 1 mL lidocaine 20 mg/mL (2 %) Jun Balbuena MD PROCEDURE/MINOR HARDY RGICAL ORDERABLES [facility] POINT OF CARE * Medication Only Injection (12/05/2021 11:15 EDT) Narrative [facility] POINT OF CARE - 12/05/2021 11:15 EDT Jun Balbuena MD ? 12/05/2021 12:38 Medication Only Injection on 12/05/2021 11:15 Medications: 3 mL bupivacaine (PF) 0.5%; 80 mg triamcinolone acetonide 40 mg/mL; 3 mL lidocaine 20 mg/mL (2 %) Jun Balbuena MD PROCEDURE/MINOR HARDY RGICAL ORDERABLES Performing Organization Address [facility] Co de Phone Number [facility] POINT OF CARE documented in this encounter Visit Diagnoses Diagnosis Impingement syndrome of shoulder, right- Primary Osteoarthritis of right acromioclavicular joint documented in this encounter Administered Medications Inactive Administered Medications - up to 3 most recent administrations Medication Order MAR Action Action Date Dose Rate Site bupivacaine (PF) (MARCAINE) 0.5% injection 1 mL 1 mL, intra-articular, Once PRN Procedure, 1 dose, Starting on Sat12/05/21 at 1115, Until Sat12/05/21 at 1115, Routine Given 12/05/2021 11:15 EDT 1 mL bupivacaine (PF) (MARCAINE) 0.5% injection 3 mL 3 mL, intra-articular, Once PRN Procedure, 1 dose, Starting on Tu12/05/21 at 1115, Until Tu12/05/21 at 1115, Routine Given 12/05/2021 11:15 EDT 3 mL lidocaine 20 mg/mL (2 %) injection 1 mL 1 mL, other, Once PRN Procedure, 1 dose, Starting on Tu12/05/21 at 1115, Until Tu12/05/21 at 1115, Routine Given 12/05/2021 11:15 EDT 1 mL lidocaine 20 mg/mL (2 %) injection 3 mL 3 mL, other, Once PRN Procedure, 1 dose, Starting on Tu12/05/21 at 1115, Until 12/05/21 at 1115, Routine Given 12/05/2021 11:15 EDT 3 mL triamcinolone acetonide (KENALOG-40) injection 40 mg 40 mg, other, Once PRN Procedure, 1 dose, Starting on 12/05/21 at 1115, Until 12/05/21 at 1115, Routine Given 12/05/2021 11:15 EDT 40 mg triamcinolone acetonide (KENALOG-40) injection 80 mg 80 mg, other, Once PRN Procedure, 1 dose, Starting on 12/05/21 at 1115, Until 12/05/21 at 1115, Routine Given 12/05/2021 11:15 EDT 80 mg documented in this encounter Care Teams Electronic Warfare Officer Relationship Specialty Start Date End Date Shonda Sánchez NP [address] [place] [address] [address] [place] [phone] PCP - General 03/14/21 01/31/22 Juma Herrera MD [address] [facility] [place] [phone] 12/08/18 documented as of this encounter
--- OUTSIDE RECORDS SUMMARY | 2024-04-22 23:47 | XMS_ITS | Encounter Summary ---
Author Organization [facility] Address [address] [place] [address] Care Team Providers Care Health Physics Technician Name Role Phone Juma Herrera MD Unavailable Shonda Sánchez NP Primary Care Provider [phone] Reason for Referral * Radiology Services (Routine/Next Available) - Authorization Not Required Specialty Diagnoses / Procedures Referred By Contac t Referred To Contact Radiology Diagnoses Chronic right shoulder pain Procedures MR SHOULDER WO CONTRAST RIGHT Jun Balbuena MD [address] [place] [address] [facility] Referral ID Status Reason Start Date Expiration Date Visits Requested Visits Authorized [id number] Authorization Not Required 09/12/2021 1 1 Reason for Visit * Radiology Services (Routine/Next Available) - Authorization Not Required Specialty Diagnoses / Procedures Referred By Contac t Referred To Contact Radiology Diagnoses Chronic right shoulder pain Procedures MR SHOULDER WO CONTRAST RIGHT Esha, Jun Felix MD [address] [place] [address] [facility] Referral ID Status Reason Start Date Expiration Date Visits Requested Visits Authorized [id number] Authorization Not Required 09/12/2021 1 1 Encounter Details Date Type Department Care Team (Latest Contact Info) Description 10/05/2021 12:22 EST Hospital [facility] Radiology MRI - Main [place] [address] [place] [address] Chronic right shoulder pain Discharge Disposition: Home or Self Care Social [...] tablet Take 4 Tablets by mouth daily. cortisone acetate (CORTISONE IM) Inject 1 [...] bedtime as needed. 05/17/2022 erenumab-aooe (AIMOVIG AUTOINJECTOR) 70 mg/mL auto-injector Inject 70 mg into the skin every 28 days. 3 Syringe 3 03/06/2021 12/20/2021 LORazepam (ATIVAN) 0.5 mg tablet Take 0.5 [...] 05/17/2022 rizatriptan (MAXALT) 10 mg tablet Take 10 mg by mouth once as needed. May repeat in 2 hours if needed 12/18/2021 documented as of this encounter Discharge Disposition Disposition Code Departure Means Destination Home or Self Care documented in this encounter Plan of Treatment Upcoming Encounters Date Type Department Care Team (Dinorah roberts Contact Info) Description 04/27/2024 14:30 EDT Telemedicine [facility] Neurology - [address] [place] [address] [place], [place] [address] Kj Gloria MD PhD 1 [facility], Level 2 [place] [phone] 04/30/2024 9:30 EDT Office Visit [facility] Interventional Pain [address] [place], [place] [phone] Catalino Garrett MD [address] [facility] [address] [place] [address] 09/18/2024 11:00 EST Office Visit [facility] Bariatric Surgery - [address] [place], [place] [address] Allen Thompson PA-C 111 [facility], [address] [place] [phone] documented as of this encounter Procedures Procedure Name Priority Date/Time Associated Diagnosis Comments MR SHOULDER WO CONTRAST RIGHT Routine 10/05/2021 13:16 EST Chronic right shoulder pain documented in this encounter Results * MR SHOULDER WO CONTRAST RIGHT (10/05/2021 13:16 EST) Anatomical Region Laterality Modality Upper Extremities Right Magnetic Reson ance 10/06/2021 17:0 2 EST Impressions 10/06/2021 17:02 EST MR SHOULDER WO CONTRAST RIGHT 1. Tendinosis of the distal supraspinatus and infraspinatus tendons with articular sided and bursal sided fraying as well as a small undersurface tear at the junctional zone between the posterior supraspinatus and anterior infraspinatus tendon fibers proximal to its footprint just distal to the level of the cable. No atrophy or fatty infiltration of the supraspinatus or infraspinatus muscles. 2. Small low-grade partial intrasubstance tear involving the upper fibers of the [...] aforementioned tendinosis and bursal sided fraying of the nearby supraspinatus and infraspinatus tendons as well as the small undersurface junctional tear suggest an element of external subacromial impingement syndrome. I have personally reviewed the images and the above interpretation and agree with the findings. Narrative 10/06/2021 17:02 EST EXAM: MR SHOULDER WO CONTRAST RIGHT ??10/05/2021 1:00 PM TECHNIQUE: Routine multiplanar and multisequence MR images of the right shoulder were obtained. No contrast was administered. HISTORY: Shoulder pain, bursitis suspected, nondiagnostic xray; Shoulder pain, rotator cuff disorder suspected, nondiagnostic xray; shoulder stiffness/pain COMPARISON: Right shoulder radiograph dated 09/12/2021. FINDINGS: Rotator Cuff: Supraspinatus/infraspinatus: There is tendinosis of the supraspinatus and infraspinatus tendons with articular- and bursal-sided fraying, as well as a small undersurface tear at the junctional zone between the posterior supraspinatus and anterior infraspinatus tendon fibers proximal to its footprint just distal to the level of the cable (coronal T2 #11). ??No atrophy or fatty infiltration of the respective muscle bellies. Teres Minor: Teres minor tendon is intact. ??No muscle atrophy or fatty infiltration. Subscapularis: There is a very small low grade intrasubstance partial tear at the upper fibers of the distal subscapularis tendon near its footprint in the lesser tuberosity on a background of tendinosis (sagittal T2 #12, axial #17). ??No muscle atrophy or fatty infiltration. Long head biceps tendon: ??Long head biceps tendon is intact and normally positioned within the bicipital groove. Labrum: ??No discrete labral tear or chondrolabral separation. ?? Cartilage: ??Chondral surfaces are preserved. Joint Space: ??No sizable glenohumeral joint effusion. Bones: ??No abnormal bone marrow signal is identified. Acromioclavicular Joint: ??Severe acromioclavicular joint osteoarthrosis with inferiorly oriented osteophyte. There is associated edema that may also be from nearby supraspinatus and infraspinatus tendinosis that is likely a component of external subacromial impingement syndrome. Subacromial-Subdeltoid Bursa: ??Mild soft tissue edema adjacent in the region of the SA/SD bursa particularly adjacent to the aforementioned inferiorly pointing osteophytes from the AC joint. Procedure Note Peterson Velasquez MD - 10/06/2021 EXAM: MR SHOULDER WO CONTRAST RIGHT 10/05/2021 1:00 PM TECHNIQUE: Routine multiplanar and multisequence MR images of the [facility] were obtained. No contrast was administered. HISTORY: Shoulder pain, bursitis suspected, nondiagnostic xray; Shoulderpain, rotator cuff disorder suspected, nondiagnostic xray; shoulderstiffness/pain COMPARISON: Right shoulder radiograph dated 09/12/2021. FINDINGS: Rotator Cuff: Supraspinatus/infraspinatus: There is tendinosis of the supraspinatus andinfraspinatus tendons with articular- and bursal-sided fraying, as well asa small undersurface tear at the junctional zone between the posteriorsupraspinatus and anterior infraspinatus tendon fibers proximal to itsfootprint just distal to the level of the cable (coronal T2 #11). Noatrophy or fatty infiltration of the respective muscle bellies. Teres Minor: Teres minor tendon is intact. No muscle atrophy or fattyinfiltration. Subscapularis: There is a very small low grade intrasubstance partial tearat the upper fibers of the distal subscapularis tendon near its footprintin the lesser tuberosity on a background of tendinosis (sagittal T2 #12,axial #17). No muscle atrophy or fatty infiltration. Long head biceps tendon: Long head biceps tendon is intact and normallypositioned within the bicipital groove. Labrum: No discrete labral tear or chondrolabral separation. Cartilage: Chondral surfaces are preserved. Joint Space: No sizable glenohumeral joint effusion. Bones: No abnormal bone marrow signal is identified. Acromioclavicular Joint: Severe acromioclavicular joint osteoarthrosiswith inferiorly oriented osteophyte. There is associated edema that mayalso be from nearby supraspinatus and infraspinatus tendinosis that islikely a component of external subacromial impingement syndrome. Subacromial-Subdeltoid Bursa: Mild soft tissue edema adjacent in theregion of the SA/SD bursa particularly adjacent to the aforementionedinferiorly pointing osteophytes from the AC joint. IMPRESSION MR SHOULDER WO CONTRAST RIGHT 1. Tendinosis of the distal supraspinatus and infraspinatus tendons witharticular sided and bursal sided fraying as well as a small undersurfacetear at the junctional zone between the posterior supraspinatus andanterior infraspinatus tendon fibers proximal to its footprint just distalto the level of the cable. No atrophy or fatty infiltration of thesupraspinatus or infraspinatus muscles. 2. Small low-grade partial intrasubstance tear involving the upper fibersof the distal subscapularis tendon near its footprint on a background oftendinosis. No atrophy or fatty infiltration of the subscapularismuscle. 3. Severe osteoarthrosis of the AC joint with inferiorly pointing osseousproliferative changes which together with soft tissue edema in theadjacent portion of the SA/SD bursa as well as the aforementionedtendinosis and bursal sided fraying of the nearby supraspinatus andinfraspinatus tendons as well as the small undersurface junctional tearsuggest an element of external subacromial impingement syndrome. I have personally reviewed the images and the above interpretation andagree with the findings. Jun Balbuena MD IMG MRI ORDERABLES documented in this encounter Visit Diagnoses Diagnosis Chronic right shoulder pain Pain in joint, shoulder region documented in this encounter Care Teams Health Physics Technician Relationship Specialty Start Date End Date Shonda Sánchez NP [address] [place], [place] [address] [address] [place] [phone] PCP - General 03/14/21 01/31/22 Juma Herrera MD [address] [place] [phone] 12/08/18 documented as of this encounter
--- OUTSIDE RECORDS SUMMARY | 2024-04-22 23:47 | XMS_ITS | Encounter Summary ---
Author Organization [facility] Address [address] [place] [address] Care Team Providers Care Information Officer Name Role Phone Juma Herrera MD Unavailable Shonda Sánchez COUNTER HOP Primary Care Provider [phone] Reason for Visit * Reason Onset Date Comments Prior Auth, Medication 12/20/2021 Aimovig 1 40 mg inject 1 ml sq q 28 days. Dose increase. Encounter Details Date Type Department Care Team (Late st Contact Info) Description 12/20/2021 Telephone [facility] Adult Neurology - [address] [phone] Kj Gloria MD PhD [address] [place] [address] 2 [place] [phone] Prior Auth, Medication (Aimovig 140 mg inject 1 ml sq q 28 days. Dose increase.) Social History Tobacco Use Types Packs/Day Years [...] * Telephone Encounter - Loretta Low - 12/20/2021 1053 EDT Prior Authorization Approval Medication: Aimovig 140 mg inject 1 ml subcutaneous q 28 days. Insurance Name: Ariella Insurance Type: Commercial Approval Dates: 09/02/2021-12/20/2022 Authorization Number: Benefits Information: [facility] able to fill? : YES Required Pharmacy: Additional Info/Other Notes: patient is already enrolled in our SPRX services. Prior Authorization Submission Process - Routine Medication: Aimovig 140 mg inject 1 ml subcutaneous q 28 days. Insurance: iPling Insurance Type: Medicare Part D Date PA Request Received: 12/20/2021 PA Submission Date: 12/20/2021 [facility] Srivastava: [id number] Notes: Submitted by: TRISTA Phone: [phone] documented in this encounter Plan of Treatment Upcoming Encounters Date Type Department Care Team (Late st Contact Info) Description 04/27/2024 14:30 EDT Telemedicine [facility] Neurology - S [address] [id number] Kj Gloria MD PhD 1 [facility] Level 2 [place] [address] 04/30/2024 9:30 EDT Office Visit [facility] Interventional Pain [address] [place], [place] [phone] Catalino Garrett MD [address] [place] [address] 09/18/2024 11:00 EST Office Visit [facility] Bariatric Surgery - [place] [address] [place], [place] [address] Allen Thompson PA-C 111 [facility], Level 5 [place] [address] documented as of this encounter Visit Diagnoses Not on filedocumented in this encounter Care Teams Information Officer Relationship Specialty Start Date End Date Shonda Sánchez NP [address] [place] [address] [address] [place] [phone] PCP - General 03/14/21 01/31/22 Juma Herrera MD [address] [facility] [place] [phone] 12/08/18 documented as of this encounter
--- OUTSIDE RECORDS SUMMARY | 2024-04-22 23:47 | XMS_ITS | Encounter Summary ---
Author Organization [facility] Address [address] [place] [address] Care Team Providers Care Solar Installer Technician Name Role Phone Juma Herrera MD Unavailable Shonda Sánchez NP Primary Care Provider [phone] Reason for Referral * Radiology Services (Routine/Next Available) - Authorization Not Required Specialty Diagnoses / Procedures Referred By Contac t Referred To Contact Diagnoses Chronic right shoulder pain Procedures XR LUMBAR SPINE 2-3 VIEWS Jun Balbuena MD [address] [place] [phone] [facility] Referral ID Status Reason Start Date Expiration Date Visits Requested Visits Authorized [id number] Authorization Not Required 09/26/2021 1 1 Reason for Visit * Radiology Services (Routine/Next Available) - Authorization Not Required Specialty Diagnoses / Procedures Referred By Contac t Referred To Contact Diagnoses Chronic right shoulder pain Procedures XR LUMBAR SPINE 2-3 VIEWS Jun Balbuena MD [address] [place] [phone] [facility] Referral ID Status Reason Start Date Expiration Date Visits Requested Visits Authorized [id number] Authorization Not Required 09/26/2021 1 1 Encounter Details Date Type Department Care Team (Latest Contact Info) Description 10/05/2021 12:24 EST - 10/05/2021 23:59 EST Hospital Encounter [facility] Radiology Xray Outpatient - [facility] [address] [place] [address] Chronic right shoulder pain Discharge Disposition: Home [...] Contact Info) Description 04/27/2024 14:30 EDT Telemedicine [facility] Neurology - [address] [place] 1 [place], [place] [address] Kj Gloria MD PhD 1 [facility], Level 2 [place] [phone] 04/30/2024 9:30 EDT Office Visit [facility] Interventional Pain 62 [facility] [place], [place] [phone] Catalino Garrett MD [address] [place] [phone] 09/18/2024 11:00 EST Office Visit [facility] Bariatric Surgery - [place] [address] [place] [address] Allen Thompson PA-C 111 [facility], Level 5 [place] [phone] documented as of this encounter Procedures Procedure Name Priority Date/Time Associated Diagnosis Comments XR LUMBAR SPINE 2-3 VIEWS Routine 10/05/2021 12:42 EST Chronic right shoulder pain documented in this encounter Results * XR [...] region documented in this encounter Care Teams Solar Installer Technician Relationship Specialty Start Date End Date Shonda Sánchez NP [address] [place], [place] [address] [address] [place] [address] PCP - General 03/14/21 01/31/22 Juma Herrera MD [address] [facility] [address] 12/08/18 documented as of this encounter
--- OUTSIDE RECORDS SUMMARY | 2024-04-22 23:47 | XMS_ITS | Encounter Summary ---
Author Organization [facility] Address [address] [place] [address] Care Team Providers Care Rug Designer Name Role Phone Juma Herrera MD Unavailable [facility], Primary Care Provider [phone] Reason for Visit * Reason Comments Neck Pain bilateral neck pain radiating down right arm * Prior Authorization (Routine) - Specialty Report Received Specialty Diagnoses / Procedures Referred By Wili mireles Referred To Contact Pain Medicine Diagnoses Other cervical disc degeneration, unspecified cervical region Sacroiliitis, not elsewhere classified ([facility]) repeat cervical epidural steroid injection at C6C7 Procedures NE NJX DX/THER SBST INTRLMNR CRV/THRC W/IMG GDN PROCEDURE MEDIUM [facility] [address] [place] [address] Catalino Garrett MD 62 [facility] [address] [place] [phone] Referral ID Status Reason Start Date Expiration Date V isits Requested Visits Authorized [id number] Specialty Report Received 1 1 Encounter Details Date Type Department Care Team (Latest Contact Info) Description 05/17/2022 8:45 EDT Procedure visit [facility] Interventional Pain [address] [place] [address] Catalino Garrett MD [address] [facility] [address] [place] [phone] Radiculopathy, cervical region (Primary Dx) Social [...] * Patient Instructions* Shantelle Piedra RN - 05/17/2022 8:45 EDT [facility] [address] [address] Patient Instructions You have had [...] documented in this encounter Progress Notes * Shantelle Piedra RN - 05/17/2022 1660 EDT [facility] Rooming Note Does patient have a Tobacco Baler? yes Is patient NPO? (Solids since midnight [...] was completed. * Catalino Garrett MD - 05/17/2022 0845 EDT Patient Name: Tia Rooney : 1975 Date of Service: 05/17/2022 Entry Level Marketing Representative: Gerry MEHTA Material Controller: none Procedure: Therapeutic cervical epidural steroid injections [...] Contact Info) Description 04/27/2024 14:30 EDT Telemedicine [facility] Neurology - [facility] [place] 1 [place], [place] [address] Kj Gloria MD PhD 1 [facility] Level 2 [place] [phone] 04/30/2024 9:30 EDT Office Visit [facility] Interventional Pain 62 [facility] [place], [place] [phone] Catalino Garrett MD 62 [facility] [address] [place] [address] 09/18/2024 11:00 EST Office Visit [facility] Bariatric Surgery - [place] [address] [place], [place] [phone] Allen Thompson, ZHOUC 111 [facility], Level 5 [place] [phone] documented as of this encounter Visit Diagnoses Diagnosis Radiculopathy, cervical region- Primary Brachial neuritis or radiculitis nos documented in this encounter Administered Medications Inactive Administered Medications - up to 3 most recent administrations Medication Order MAR Action Action Date Dose Rate Site dexAMETHasone (DECADRON) injection 10 mg 10 mg, neural-axial, NOW X1, 1 dose, On Karen 05/17/22 at 0945, Routine Given by Other 05/17/2022 9:22 EDT 10 mg Iohexol (OMNIPAQUE 180) injection 10 mL 10 mL, neural-axial, NOW X1, 1 dose, On Karen 05/17/22 at 0945, Routine Given by Other 05/17/2022 9:22 EDT 10 mL documented in this encounter Discontinued Medications Medication Sig Discontinue Reason Start Date End Da te diphenhydrAMINE-acetami nophen 25-500 mg tablet Take 1 Tablet by mouth at bedtime as needed. Patient Stopped Taking 05/17/2022 LORazepam (ATIVAN) 0.5 mg tablet Take 0.5 mg by mouth at bedtime. Discontinued by another clinician 05/17/2022 oxyCODONE (ROXICODONE) 5 mg immediate release tablet Take 2 Tabs by mouth every 4 hours Hold for now while taking liquid form Daily Max: 60 mg Therapy completed 09/07/2015 05/17/2022 pediatric multivitamin (JUAN CHEW VIT) chewable tablet Take 1 Tab by mouth daily Hold for 2 weeks Alternate therapy 09/07/2015 05/17/2022 potassium chloride (KLOR-CON) 20 mEq packet Take 20 mEq by mouth daily. Therapy completed 05/17/2022 rizatriptan (MAXALT) 10 mg tablet Take 1 Tablet by mouth as needed for Migraine. May repeat in 2 hours if needed. Not to exceed to 8 days per month Therapy completed 12/18/2021 05/17/2022 documented as of this encounter Care Teams Rug Designer Relationship Specialty Start Date End Date [facility], Mp [address] [place] [address] PCP - General 02/01/22 07/05/22 Juma Herrera MD [address] [facility] [place] [phone] 12/08/18 documented as of this encounter
--- OUTSIDE RECORDS SUMMARY | 2024-04-22 23:47 | XMS_ITS | Encounter Summary ---
Author Organization [facility] Address [address] [place] [address] Care Team Providers Care Electronic Page Makeup System Operator Name Role Phone Juma Herrera MD Unavailable [facility], Primary Care Provider [phone] Reason for Visit * Reason Onset Date Comments Appointment Related 02/28/2022 Encounter Details Date Type Department Care Team (Late st Contact Info) Description 02/28/2022 Telephone [facility] Sports Medicine Program - [address] [address] Jun Balbuena MD [address] [place] [address] Appointment Related Social History Tobacco Use [...] encounter Miscellaneous Notes * Telephone Encounter - Jun Balbuena MD - 02/28/2022 1640 EDT Hi, Can't do all 3. SC joint on one day. SA and AC on another. Thanks. Jun Balbuena M.D. 02/28/2022 16:41 documented in this encounter Plan of Treatment Upcoming Encounters Date Type Department Care Team (Late st Contact Info) Description 04/27/2024 14:30 EDT Telemedicine [facility] Neurology - [address] [phone] Kj Gloria MD PhD 1 [facility] Level 2 [place] [phone] 04/30/2024 9:30 EDT Office Visit [facility] Interventional Pain 62 [facility] [place] [address] Catalino Garrett MD 62 [facility] [address] [place] [address] 09/18/2024 11:00 EST [facility] [address] [place], [place] [address] Allen Thompson PA-C [address] [place] [address], [facility], Level [address] [place] [address] documented as of this encounter Visit Diagnoses Not on filedocumented in this encounter Care Teams Electronic Page Makeup System Operator Relationship Specialty Start Date End Date [facility], Mp [address] [place] [address] PCP - General 02/01/22 07/05/22 Juma Herrera MD [address] [facility] [place] [address] 12/08/18 documented as of this encounter
--- OUTSIDE RECORDS SUMMARY | 2024-04-22 23:47 | XMS_ITS | Encounter Summary ---
Author Organization [facility] Address [address] [place] [address] Care Team Providers Care Grip Name Role Phone Juma Herrera MD Unavailable [facility], Primary Care Provider [phone] Reason for Referral * Prior Authorization (See Order Priority) - Authorization Not Required Specialty Diagnoses / Procedures Referred By Contmarco a t Referred To Contact Orthopedic Surgery Diagnoses Chronic right shoulder pain Jun Balbuena MD [address] [place] [phone] [facility] Ortho Sports [address] [place] [address] [place] [address] Referral ID Status Reason Start Date Expiration Date Visits Requested Visits Authorized [id number] Authorization Not Required Specialty Services Required 2 1 1 Question Answer Reason for Request: RIGHT SHOULDER USG SA AND/OR SC INJECTION Comments The purpose of this request is to inform precertification staff that the requested service needs to be reviewed for prior-authorization. Encounter Details Date Type Department Care Team (Late st Contact Info) Description 04/25/2022 Orders Only [facility] Sports Medicine Program - [place] [address] [place] [address] Jun Balbuena MD [address] [place] [address] Chronic right shoulder pain (Primary Dx) [...] Contact Info) Description 04/27/2024 14:30 EDT Telemedicine [facility] Neurology - S [place] 1 [place], [place] [address] Kj Gloria MD PhD 1 [facility], Level 2 [place] [phone] 04/30/2024 9:30 EDT Office Visit [facility] Interventional Pain [address] [place], [place] [phone] Catalino Garrett MD 62 [facility] [address] [place] [address] 09/18/2024 11:00 EST Office Visit [facility] Bariatric Surgery - [place] [address] [place] [address] Allen Thompson, PA-C 111 [facility], [facility] 5 [place] [phone] Scheduled Referrals Name Type Priority Associated Diagnoses Order Schedule AMB CONS/FOLLOW UP IN CLINIC PROCEDURES PRIOR AUTHORIZATION REQUEST Outpatient Referral Routine/Next Available Chronic right shoulder pain Expected: 05/03/2022 (Approximate), Expires: 04/25/2023 documented as of this encounter Visit Diagnoses Diagnosis Chronic right shoulder pain- Primary Pain in joint, shoulder region documented in this encounter Care Teams Grip Relationship Specialty Start Date End Date [facility], Mp [address] [place] [address] PCP - General 02/01/22 07/05/22 Juma Herrera MD [address] [facility] [place] [phone] 12/08/18 documented as of this encounter
--- OUTSIDE RECORDS SUMMARY | 2024-04-22 23:47 | XMS_ITS | Encounter Summary ---
Author Organization [facility] Address [address] [place] [address] Care Team Providers Care Medical Record Coder Name Role Phone Juma Herrera MD Unavailable [facility] Primary Care Provider [phone] Encounter Details Date Type Department Care Team (Late st Contact Info) Description 03/14/2022 Specialty Pharmacy [facility] Ambulatory Pharmacy - Main [address] [address] [facility] Social History Tobacco Use Types Packs/Day Years [...] Description 04/27/2024 14:30 EDT Telemedicine [facility] Neurology - [place] [facility] [place] 1 [place], [place] [address] Kj Gloria MD PhD 1 [facility] Level 2 [place] [phone] 04/30/2024 9:30 EDT Office Visit [facility] Interventional Pain 62 [facility] [place], [place] [phone] Catalino Garrett MD 62 [facility] [address] [place] [address] 09/18/2024 11:00 EST Office Visit [facility] Bariatric Surgery - [place] [address] [place], [place] [address] Allen Thompson, PA-C 111 [facility], Level [address] [place] [phone] documented as of this encounter Visit Diagnoses Not on filedocumented in this encounter Care Teams Medical Record Coder Relationship Specialty Start Date End Date [facility], Mp [address] [place], [place] [address] PCP - General 02/01/22 07/05/22 Juma Herrera MD [address] [place] [address] 12/08/18 documented as of this encounter
--- OUTSIDE RECORDS SUMMARY | 2024-04-22 23:47 | XMS_ITS | Encounter Summary ---
Author Organization [facility] Address [address] [place] [address] Care Team Providers Care Timers Inspector Name Role Phone Juma Herrera MD Unavailable Shonda Sánchez FAILURE ANALYSIS ENGINEER Primary Care Provider [phone] Reason for Visit * Reason Onset Date Comments Appointment Related 01/23/2022 Encounter Details Date Type Department Care Team (Late st Contact Info) Description 01/23/2022 Telephone [facility] Interventional Pain 62 [facility] [place] [address] Catalino Garrett MD 62 [facility] [address] [place] [address] Appointment Related Social History Tobacco [...] * Telephone Encounter - Jalyn Gibbons - 01/25/2022 1709 EDT Made call out to patient and let her know that is was ok for her to do that injection per clinical * Telephone Encounter - Jalyn Gibbons - 01/23/2022 1153 EDT Spoke to patient and made appointment on 02/01/2022 for: Cervical CUAUHTEMOC. Patient had a question for clinical; on 01/26/22 she is scheduled to have a Aimovig (140mg) injection to treat her migraines, isthat ok to have prior to injection? documented in this encounter Plan of Treatment Upcoming Encounters Date Type Department Care Team (Late st Contact Info) Description 04/27/2024 14:30 EDT Telemedicine [facility] Neurology - [address] [phone] Kj Gloria MD PhD 1 [facility] Level 2 [place] [phone] 04/30/2024 9:30 EDT Office Visit [facility] Interventional Pain 62 [facility] [place], [place] [phone] Catalino Garrett MD 62 [facility] [address] [place] [address] 09/18/2024 11:00 EST Office Visit [facility] Bariatric Surgery - [place] [address] [place] [address] Allen Thompson, PA-C 111 [facility], Level [address] [place] [phone] documented as of this encounter Visit Diagnoses Not on filedocumented in this encounter Care Teams Timers Inspector Relationship Specialty Start Date End Date Shonda Sánchez NP [address] [facility] [address] [place] [phone] PCP - General 03/14/21 01/31/22 Juma Herrera MD [address] [facility] [place] [address] 12/08/18 documented as of this encounter
--- OUTSIDE RECORDS SUMMARY | 2024-04-22 23:47 | XMS_ITS | Encounter Summary ---
Author Organization [facility] Address [address] [place] [address] Care Team Providers Care [place] Name Role Phone Juma Herrera MD Unavailable [facility], Primary Care Provider [phone] Reason for Visit * Reason Comments Injections * Prior Authorization (See Order Priority) - Authorization Not Required Specialty Diagnoses / Procedures Referred By Wili mireles Referred To Contact Orthopedic Surgery Diagnoses Chronic right shoulder pain Jun Balbuena MD [address] [place] [address] [facility] Ortho Sports [facility] [address] [place] [address] Referral ID Status Reason Start Date Expiration Date Visits Requested Visits Authorized [id number] Authorization Not Required Specialty Services Required 2 1 1 Encounter Details Date Type Department Care Team (Latest Contact Info) Description 05/03/2022 14:40 EDT Procedure visit [facility] Sports Medicine [place] [address] Jun Balbuena MD [address] [place] [address] Impingement syndrome of shoulder, right (Primary Dx); Osteoarthritis of right acromioclavicular joint; Osteoarthritis of right sternoclavicular joint Social History Tobacco Use Types Packs/Day [...] Progress Notes * Jun Balbuena MD - 05/03/2022 1440 EDTAssociated [...] Contact Info) Description 04/27/2024 14:30 EDT Telemedicine [facility] Neurology - S [place] 1 [place], [place] [address] Kj Gloria MD PhD 1 [facility], Level 2 [place] [phone] 04/30/2024 9:30 EDT Office Visit [facility] Interventional Pain [address] [place], [place] [phone] Catalino Garrett MD [address] [place] [address] 09/18/2024 11:00 EST Office Visit [facility] Bariatric Surgery - [place] [address] [place] [address] Allen Thompson PALizettC [address] [place] [address], [facility] 5 [place] [address] documented as of this encounter Procedures Procedure Name Priority Date/Time Associated Diagnosis Comments MEDICATION ONLY INJECTION Routine 05/03/2022 14:40 EDT Impingement syndrome of shoulder, right documented in this encounter Results * Medication Only Injection (05/03/2022 14:40 EDT) Narrative [facility] POINT OF CARE - 05/03/2022 14:40 EDT Jun Balbuena MD ? 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 documented in this encounter Administered Medications Inactive Administered Medications - up to 3 most recent administrations Medication Order MAR Action Action Date Dose Rate Site bupivacaine (PF) (MARCAINE) 0.5% injection 3 mL 3 mL, intra-articular, Once PRN Procedure, 1 dose, Starting on Karen 05/03/22 at 1440, Until Karen 05/03/22 at 1440, Routine Given 05/03/2022 14:40 EDT 3 mL lidocaine 20 mg/mL (2 %) injection 3 mL 3 mL, other, Once PRN Procedure, 1 dose, Starting on Karen 05/03/22 at 1440, Until [place] 05/03/22 at 1440, Routine Given 05/03/2022 14:40 EDT 3 mL triamcinolone acetonide (KENALOG-40) injection 80 mg 80 mg, other, Once PRN Procedure, 1 dose, Starting on Karen 05/03/22 at 1440, Until [place] 05/03/22 at 1440, Routine Given 05/03/2022 14:40 EDT 80 mg documented in this encounter Care Teams [place]el Relationship Specialty Start Date End Date [facility] Mp [address] [place] [address] PCP - General 02/01/22 07/05/22 Juma Herrera MD [address] [facility] [place] [phone] 12/08/18 documented as of this encounter
--- OUTSIDE RECORDS SUMMARY | 2024-04-22 23:47 | XMS_ITS | Encounter Summary ---
Author Organization [facility] Address [address] [place] [address] Care Team Providers Care Steel Estimator Name Role Phone Juma Herrera MD Unavailable Shonda Sánchez DIE BAKER Primary Care Provider [phone] Reason for Visit * Reason Comments Follow-up Encounter Details Date Type Department Care Team (Latest Contact Info) Description 12/01/2021 10:30 EDT Office Visit [facility] Medicine Program - [address] [address] Jun Balbuena MD [address] [place] [address] Osteoarthritis of right sternoclavicular joint (Primary Dx); Osteoarthritis of right acromioclavicular joint; Impingement syndrome of shoulder, right Social History Tobacco Use Types Packs/Day Years [...] Progress Notes * Jun Balbuena MD - 12/01/2021 1030 EDT Chief Complaint Patient presents with ??? Right Shoulder - Follow-up SUBJECTIVE: Tia Rooney is a 46 y.o. female who presents to the office to follow up for her right shoulder MRI and right clavicle CT scan. She continues to have lateral shoulder pain as well as pain in the front of her chest. Clicking. More pain with reaching up and reaching back. She still has motion. Occasionally feels weak. She does improve with rest, sling, heat and ice 6 out of 10 pain. She initially presented several weeks ago with a long standing history of right posterior shoulder pain. She reports that many years ago her chiropractor noticed a large lump in the region of her scapula. Xrays were negative. [place] to me muscular. After 3 weeks, the lump went away. She then hit her shoulder on a table saw and eventually got the wound evaluated for an infection. She then noticed a lump in the front of the shoulder. She is followed by Dr. Garrett who does injections in her neck. Her PT was not sure what was going on and sent her to Dr. Bro Child who determined that her issue was not from the cervical spine. Past medical, past surgical, medications, allergies, social history and 12 system ROS were all documented on the intake form. These were reviewed and there are no changes. OBJECTIVE: There were no vitals taken for this visit. General: awake, alert, NAD, pleasant EENT: extraocular motion grossly intact Pulmonary: normal respirations, non-labored breathing Psych: normal affect, thoughts are logical and sequential Examination of right shoulder: Inspection: no ecchymosis, no erythema, SC joint prominence that worsens with shoulder elevation, no deformity, no atrophy, no scars noted. Palpation: nonspecific tenderness to the shoulder girdle including AC joint, SC joint and scapula. Range of motion: 135 degrees forward elevation. 120 degrees abduction. Passively, 45 degrees ER at 0 degrees abduction, 90 degrees ER at 90 degrees abduction, IR to T12 vs T10 Strength testin/5 motor in empty can/scaption, 5/5 motor in resisted external rotation. 5/5 motor on subscapular lift off test. Impingement testing: negative Su, negative Neers Special tests: No increased anterior or posterior translation on load shift testing. Negative sulcus sign. Positive active compression test with pain localizing to AC and SC joints. Distal neurovascular exam intact. DIAGNOSTIC DATA: MRI of the right shoulder dated 10/05/21 reveals supraspinatus and infraspinatus tendinosis with fraying and small undersurface tear. Severe AC joint osteoarthritis. Subacromial bursitis. CT scan of the clavicle dated 10/05/21 reveals degenerative changes to AC and SC joints. No subluxation of SC joint. Plain films taken previously and independently reviewed by me including true AP, axillary and outlet views of right shoulder reveal evidence of AC joint degenerative changes. ASSESSMENT: Chronic right shoulder pain with evidence of sternoclavicular instability osteoarthritis. She also has hypertrophic severe AC joint osteoarthritis with resultant impingement of the cuff andsubacromial bursitis. She also has nonspecific myofascial pain around the shoulder. PLAN: Patient's diagnosis, plain films and treatment options were discussed at length. Physical therapy will continue. Activity modification, ice and OTC medications were recommended as well. Minimize overhead and repetitive use. No heavy lifting. We discussed injections into her shoulder. She will return for an US guided subacromial bursa and AC joint. If she continues to have pain after that, we will perform an US guided SC joint. Follow up in several weeks to review the images. The patient verbalized understanding of the above and agreed with this plan. All of her questions were answered to her satisfaction today. I spent a total of 30 minutes on the date of this encounter meeting with the patient and reviewing documentation/coordinating care as described in the above note. Jun Balbuena M.D. 12/01/2021 12:14 Cc: Shonda Sánchez NP documented in this encounter Plan of Treatment Upcoming Encounters Date Type Department Care Team (Late st Contact Info) Description 04/27/2024 14:30 EDT Telemedicine [facility] Neurology - [address] [id number] Kj Gloria MD PhD [address] [facility] [address] [place] [phone] 04/30/2024 9:30 EDT Office Visit [facility] Interventional Pain [address] [facility] [place], [place] [phone] Catalino Garrett MD 62 [facility] [address] [place] [address] 09/18/2024 11:00 EST Office Visit [facility] Bariatric Surgery [facility] [address] [place], [place] [address] Allen Thompson, PA-C 111 [facility], Level [address] [place] [phone] documented as of this encounter Visit Diagnoses Diagnosis Osteoarthritis of right sternoclavicular joint- Primary Osteoarthritis of right acromioclavicular joint Impingement syndrome of shoulder, right documented in this encounter Care Teams Steel Estimator Relationship Specialty Start Date End Date Shonda Sánchez NP [address] [place] [address] [address] [place] [phone] PCP - General 03/14/21 01/31/22 Juma Herrera MD [address] [facility] [place] [address] 12/08/18 documented as of this encounter
--- OUTSIDE RECORDS SUMMARY | 2024-04-22 23:47 | XMS_ITS | Encounter Summary ---
Author Organization [facility] Address [address] [place] [address] Care Team Providers Care Vine Fruit Farming Supervisor Name Role Phone Juma Herrera MD Unavailable [facility] Primary Care Provider [phone] Encounter Details Date Type Department Care Team (Late st Contact Info) Description 02/13/2022 Specialty Pharmacy [facility] Ambulatory Pharmacy - Main [address] [address] Kelechi Panda [facility] Social History Tobacco Use Types [...] 04/27/2024 14:30 EDT Telemedicine [facility] Neurology - [facility] 1 [place], [place] [address] Kj Gloria MD PhD 1 [facility] Level [address] [place] [phone] 04/30/2024 9:30 EDT Office Visit [facility] Interventional Pain [address] [facility] [place], [place] [phone] Catalino Garrett MD 62 [facility] [address] [place] [address] 09/18/2024 11:00 EST Office Visit [facility] Bariatric Surgery - [place] [address] [place], [place] [address] Allen Thompson, PA-C 111 [facility], [address] [place] [phone] documented as of this encounter Visit Diagnoses Not on filedocumented in this encounter Care Teams Vine Fruit Farming Supervisor Relationship Specialty Start Date End Date [facility], M[address] [place], [place] [address] PCP - General 02/01/22 07/05/22 Juma Herrera MD [address] [place], [place] [address] 12/08/18 documented as of this encounter
--- OUTSIDE RECORDS SUMMARY | 2024-04-22 23:47 | XMS_ITS | Encounter Summary ---
Author Organization [facility] Address [address] [place] [address] Care Team Providers Care Picker/Puller Name Role Phone Juma Herrera MD Unavailable Shonda Sánchez ETHYLBENZENE CRACKING SUPERVISOR Primary Care Provider [phone] Encounter Details Date Type Department Care Team (Late st Contact Info) Description 12/22/2021 Specialty Pharmacy [facility] - [address] [id number] Kelechi Panda [facility] Social History Tobacco Use Types [...] as of this encounter Progress Notes * Kelechi Panda Gabriella - 12/22/2021 0902 EDT [facility]: Headache [facility] dose increase Patient increasing Aimovig dose from 70 mg to 140 mg. Had questions regarding interactions or side effects to look out for with the dose increase. Tia was counseled to watch for constipation (thiswas not an issue on 70 mg dose). I did mention new or worsening hypertension. She said she has noticed her BP was about 10-15 points higher than normal. She will monitor at home with a blood pressure cough and follow up with Neuro/PCP if she has any further increases. Kelechi Panda, PharmD [facility] Ambulatory Pharmacist Clinician- Neurology 12/22/2021 documented in this encounter Plan of Treatment Upcoming Encounters Date Type Department Care Team (Late st Contact Info) Description 04/27/2024 14:30 EDT Telemedicine [facility] Neurology - [address] [id number] Kj Gloria MD PhD 1 [facility], Level 2 [place] [phone] 04/30/2024 9:30 EDT Office Visit [facility] Interventional Pain 62 [facility] [place] [address] Catalino Garrett MD [address] [facility] [address] [place] [address] 09/18/2024 11:00 EST Office Visit [facility] Bariatric Surgery - [place] [address] [place], [place] [address] Allen Thompson PA-C 111 [facility], Level 5 [place] [phone] documented as of this encounter Visit Diagnoses Not on filedocumented in this encounter Care Teams Picker/Puller Relationship Specialty Start Date End Date Shonda Sánchez NP [address] [place] [address] [address] [place] [phone] PCP - General 03/14/21 01/31/22 Juma Herrera MD [address] [facility] [place] [address] 12/08/18 documented as of this encounter
--- OUTSIDE RECORDS SUMMARY | 2024-04-22 23:47 | XMS_ITS | Encounter Summary ---
Author Organization [facility] Address [address] [place] [address] Care Team Providers Care Utilization Review Nurse Name Role Phone Juma Herrera MD Unavailable [facility], Primary Care Provider [phone] Encounter Details Date Type Department Care Team (Late st Contact Info) Description 05/02/2022 Orders Only [facility] Program - [address] [address] Jun Balbuena MD [address] [place] [address] Chronic right shoulder pain (Primary Dx) [...] EDT Telemedicine [facility] Neurology - [facility] 1 [place], [place] [address] Kj Gloria MD PhD 1 [facility] Level 2 [place] [phone] 04/30/2024 9:30 EDT Office Visit [facility] Interventional Pain [address] [place], [place] [phone] Catalino Garrett MD 62 [facility] [address] [place] [address] 09/18/2024 11:00 EST Office Visit [facility] Bariatric Surgery - [address] [phone] Allen Thompson, PA-C 111 [facility], Level 5 [place] [phone] documented as of this encounter Results * POC MSK US SHOULDER (05/03/2022 16:06 EDT) Narrative [facility] POINT OF CARE - 05/03/2022 16:06 EDT This is a non-reportable exam. Jnu Balbuena MD IMG US POC ORDERAB LES [facility] POINT OF CARE documented in this encounter Visit Diagnoses Diagnosis Chronic right shoulder pain- Primary Pain in joint, shoulder region Chronic right shoulder pain Pain in joint, shoulder region documented in this encounter Care Teams Utilization Review Nurse Relationship Specialty Start Date End Date [facility], M[address] [place] [address] PCP - General 02/01/22 07/05/22 Juma Herrera MD [address] [facility] [address] 12/08/18 documented as of this encounter
--- OUTSIDE RECORDS SUMMARY | 2024-04-22 23:47 | XMS_ITS | Encounter Summary ---
Author Organization [facility] Address [address] [place] [address] Care Team Providers Care Electronic Lab Technician Name Role Phone Juma Herrera MD Unavailable Shonda Sánchez RN HEMODIALYSIS Primary Care Provider [phone] Reason for Visit * Reason Onset Date Comments Appointment Related 12/20/2021 Encounter Details Date Type Department Care Team (Late st Contact Info) Description 12/20/2021 Telephone [facility] - S [place] [address] [place] [phone] Kj Gloria MD PhD 1 [facility] 2 [place] [address] Appointment Related Social History Tobacco [...] encounter Miscellaneous Notes * Telephone Encounter - Karis Acevedo RN - [...] decreased significantly. rx for rizatriptan sent [facility] on 12/18/21. Closing encounter * Telephone Encounter - Sena Stern - 12/20/2021 1027 EDT Spoke with the patient. Sena scheduled televideo w/Dr. Gloria for 06/25/2022 @ 11 am. Need zoom invite. Email address confirmed. documented in this encounter Plan of Treatment Upcoming Encounters Date Type Department Care Team (Late st Contact Info) Description 04/27/2024 14:30 EDT Telemedicine [facility] - S [address] [address] Kj Gloria MD PhD [address] [place] [address] 2 [place] [phone] 04/30/2024 9:30 EDT Office Visit [facility] Interventional Pain [address] [place], [place] [phone] Catalino Garrett MD [address] [place] [address] 09/18/2024 11:00 EST Office Visit [facility] Bariatric Surgery [facility] [address] [place], [place] [address] Allen Thompson PA-C [address] [facility], [facility] 5 [place] [phone] documented as of this encounter Visit Diagnoses Not on filedocumented in this encounter Care Teams Electronic Lab Technician Relationship Specialty Start Date End Date Shonda Sánchez NP [address] [place] [phone] PCP - General 03/14/21 01/31/22 Juma Herrera MD [address] [facility] [place] [phone] 12/08/18 documented as of this encounter
--- OUTSIDE RECORDS SUMMARY | 2024-04-22 23:47 | XMS_ITS | Encounter Summary ---
Author Organization [facility] Address [address] [place] [address] Care Team Providers Care Metal Plater Name Role Phone Juma Herrera MD Unavailable Shonda Sánchez BODY MAKER Primary Care Provider [phone] Encounter Details Date Type Department Care Team (Late st Contact Info) Description 12/01/2021 Orders Only [facility] Sports Medicine Program - [address] [address] Jun Balbuena MD [address] [place] [address] Chronic right shoulder pain (Primary Dx) [...] Contact Info) Description 04/27/2024 14:30 EDT Telemedicine [facility] Neurology - [facility] 1 [place], [place] [address] Kj Gloria MD PhD 1 [facility] Level 2 [place] [phone] 04/30/2024 9:30 EDT Office Visit [facility] Interventional Pain [address] [place], [place] [phone] Catalino Garrett MD 62 [facility] [address] [place] [address] 09/18/2024 11:00 EST Office Visit [facility] Bariatric Surgery [facility] [address] [place], [place] [address] Allen Thompson PA-C 111 [facility], Level [address] [place] [phone] documented as of this encounter Results * POC MSK US SHOULDER (12/05/2021 15:16 EDT) Narrative [facility] POINT OF CARE - 12/05/2021 15:16 EDT This is a non-reportable exam. Jun Balbuena MD IMG US POC ORDERAB LES [facility] POINT OF CARE documented in this encounter Visit Diagnoses Diagnosis Chronic right shoulder pain- Primary Pain in joint, shoulder region Chronic right shoulder pain Pain in joint, shoulder region documented in this encounter Care Teams Metal Plater Relationship Specialty Start Date End Date Shonda Sánchez NP [address] [place] [address] PCP - General 03/14/21 01/31/22 Juma Herrera MD [address] [facility] [place] [phone] 12/08/18 documented as of this encounter
--- OUTSIDE RECORDS SUMMARY | 2024-04-22 23:47 | XMS_ITS | Encounter Summary ---
Author Organization [facility] Address [address] [place] [address] Care Team Providers Care Information Technology Consultant Name Role Phone Juma Herrera MD Unavailable Shonda Sánchez MONORAIL HELPER Primary Care Provider [phone] Reason for Visit * Reason Onset Date Comments Migraine 01/03/2022 Encounter Details Date Type Department Care Team (Late st Contact Info) Description 01/03/2022 Telephone [facility] Neurology - S [place] [address] [place] [phone] Kj Gloria MD PhD 1 [facility] 2 [place] [address] Migraine Social History Tobacco Use Types Packs/Day Years [...] Miscellaneous Notes * Telephone Encounter - Karis Acevedo, RN - 01/22/2022 1342 EDT Nursing did reach out to patient back on 01/03. [facility] with detailed message that if still needs assistance to please give us a call. Closing this encounter * Telephone Encounter - Loretta Degroot - 01/03/2022 1019 EDT Tia was calling again this morning. She is hoping to get a call back in regards to her migraine.She doesn't think she will be able to wait much longer for a call back and may go to the ED. Pleasecall as soon as possible. Thank you * Telephone Encounter - Pamela Hunter - 01/03/2022 [...] Telemedicine [facility] Neurology - [address] [address] Kj Gloria MD PhD 1 [facility], Level 2 [place] [phone] 04/30/2024 9:30 EDT Office Visit [facility] Interventional Pain [address] [place] [address] Catalino Garrett MD [address] [place] [address] 09/18/2024 11:00 EST Office Visit [facility] Bariatric Surgery [facility] [address] [place], [place] [phone] Allen Thompson PA-C 111 [facility], Level [address] [place] [phone] documented as of this encounter Visit Diagnoses Not on filedocumented in this encounter Care Teams Information Technology Consultant Relationship Specialty Start Date End Date Shonda Sánchez NP [address] [place] [address] [address] [place] [phone] PCP - General 03/14/21 01/31/22 Juma Herrera MD [address] [facility] [place] [phone] 12/08/18 documented as of this encounter
--- OUTSIDE RECORDS SUMMARY | 2024-04-22 23:47 | XMS_ITS | Encounter Summary ---
Author Organization [facility] Address [address] [place] [address] Care Team Providers Care Yard Inspector Name Role Phone Juma Herrera MD Unavailable Shonda Sánchez NP Primary Care Provider [phone] Reason for Referral * Radiology Services (Routine/Next Available) - Authorization Not Required Specialty Diagnoses / Procedures Referred By Contac t Referred To Contact Diagnoses Subluxation of right sternoclavicular joint, initial encounter Osteoarthritis of right sternoclavicular joint Procedures CT CLAVICLE RIGHT WO CONTRAST Jun Balbuena MD [address] [place] [address] [facility] Referral ID Status Reason Start Date Expiration Date Visits Requested Visits Authorized [id number] Authorization Not Required 09/12/2021 1 1 Reason for Visit * Radiology Services (Routine/Next Available) - Authorization Not Required Specialty Diagnoses / Procedures Referred By Contac t Referred To Contact Diagnoses Subluxation of right sternoclavicular joint, initial encounter Osteoarthritis of right sternoclavicular joint Procedures CT CLAVICLE RIGHT WO CONTRAST Jun Balbuena MD [address] [place] [address] [facility] Referral ID Status Reason Start Date Expiration Date Visits Requested Visits Authorized [id number] Authorization Not Required 09/12/2021 1 1 Encounter Details Date Type Department Care Team (Latest Contact Info) Description 10/05/2021 12:23 EST Hospital [facility] Radiology [facility] - Main [address] [address] Subluxation of right sternoclavicular joint, initial encounter; Osteoarthritis of right sternoclavicular joint Discharge Disposition: Home or Self Care Social [...] Description 04/27/2024 14:30 EDT Telemedicine [facility] Neurology - [address] [place] [address] [place], [place] [address] Kj Gloria MD PhD 1 [facility] Level 2 [place] [phone] 04/30/2024 9:30 EDT Office Visit [facility] Interventional Pain 62 [facility] [place], [place] [phone] Catalino Garrett MD 62 [facility] [address] [place] [address] 09/18/2024 11:00 EST Office Visit [facility] Bariatric Surgery - [place] [address] [place], [place] [address] Allen Thompson, ZHOUC 111 [facility], Level 5 [place] [phone] documented as of this encounter Procedures Procedure Name Priority Date/Time Associated Diagnosis Comments CT CLAVICLE RIGHT WO CONTRAST Routine 10/05/2021 13:38 EST Subluxation of right sternoclavicular joint, initial encounter Osteoarthritis of right sternoclavicular joint documented in this encounter Results * CT CLAVICLE RIGHT WO CONTRAST (10/05/2021 13:38 EST) Anatomical Region Laterality Modality Upper Extremities Right Computed Tomog sharad 10/09/2021 13:3 1 EST Impressions 10/09/2021 13:31 EST Prominence of the right sternoclavicular joint appears to be largely related to joint hypertrophy in the setting of degenerative change. Minimal if any subluxation of the right sternoclavicular joint on the static images. Narrative 10/09/2021 13:31 EST Exam:CT CLAVICLE RIGHT WO CONTRAST ??10/05/2021 3:00 PM Technique:CT CLAVICLE RIGHT WO CONTRAST ?? Three-dimensional reconstructions were generated on an independent workstation. Images were reviewed and adjusted for 3-D rendering on an independent workstation, as needed, prior to interpretation. History: ?? chronic shoulder pain Comparison: None. FINDINGS: Bones: Prominence of the right sternoclavicular joint appears to be largely related to joint hypertrophy in the setting of degenerative change. Minimal if any subluxation of the right sternoclavicular joint. Moderate AC joint degenerative changes on the right. Anterior fusion of C5-6. Muscles/Tendons: No significant muscle atrophy. Other Soft tissues: Somewhat limited evaluation of the partially included lung due to motion artifact. Procedure Note Ever Willson MD - 10/09/2021 Exam:CT CLAVICLE RIGHT WO CONTRAST 10/05/2021 3:00 PM Technique:CT CLAVICLE RIGHT WO CONTRAST Three-dimensional reconstructions were generated on an independentworkstation. Images were reviewed and adjusted for 3-D rendering on anindependent workstation, as needed, prior to interpretation. History: chronic shoulder pain Comparison: None. FINDINGS: Bones: Prominence of the right sternoclavicular joint appears to belargely related to joint hypertrophy in the setting of degenerativechange. Minimal if any subluxation of the right sternoclavicular joint. Moderate AC joint degenerative changes on the right. Anterior fusion of C5-6. Muscles/Tendons: No significant muscle atrophy. Other Soft tissues: Somewhat limited evaluation of the partially includedlung due to motion artifact. IMPRESSION Prominence of the right sternoclavicular joint appears to be largelyrelated to joint hypertrophy in the setting of degenerative change.Minimal if any subluxation of the right sternoclavicular joint on thestatic images. Jun Balbuena MD IMG CT ORDERABLES documented in this encounter Visit Diagnoses Diagnosis Subluxation of right sternoclavicular joint, initial encounter Osteoarthritis of right sternoclavicular joint documented in this encounter Care Teams Yard Inspector Relationship Specialty Start Date End Date Shonda Sánchez NP [address] [place] [address] PCP - General 03/14/21 01/31/22 Juma Herrera MD [address] [place] [address] 12/08/18 documented as of this encounter
--- OUTSIDE RECORDS SUMMARY | 2024-04-22 23:47 | XMS_ITS | Encounter Summary ---
Author Organization [facility] Address [address] [place] [address] Care Team Providers Care Athletic Scout Name Role Phone Juma Herrera MD Unavailable [facility] Primary Care Provider [phone] Encounter Details Date Type Department Care Team (Late st Contact Info) Description 04/11/2022 Specialty Pharmacy [facility] Ambulatory Pharmacy - Main [address] [address] Kelechi Panda [facility] Social History Tobacco Use Types Packs/Day Years [...] encounter Progress Notes * Maki Jiménez - 04/11/2022 1306 EDT [facility] Delivery Information Hours: Saturday-Saturday 8:30am - 5:00pm *Pharmacist available environmental monitoring technician 25/03 Delivery Service: FedEx Delivery Window: None Specified Date of Delivery: 04/19/22 Tracking # : [id number] documented in this encounter Plan of Treatment Upcoming Encounters Date Type Department Care Team (Late st Contact Info) Description 04/27/2024 14:30 EDT Telemedicine [facility] Neurology [address] [phone] Kj Gloria MD PhD 1 [facility] 2 [place] [phone] 04/30/2024 9:30 EDT Office Visit [facility] Interventional Pain [address] [place] [address] Catalino Garrett MD 62 [facility] [address] [place] [address] 09/18/2024 11:00 EST Office Visit [facility] Bariatric Surgery - [place] [address] [place], [place] [address] Allen Thompson PA-C 111 [facility], Level 5 [place] [phone] documented as of this encounter Visit Diagnoses Not on filedocumented in this encounter Care Teams Athletic Scout Relationship Specialty Start Date End Date [facility] [address] [place] [address] PCP - General 02/01/22 07/05/22 Juma Herrera MD [address] [facility] [place] [phone] 12/08/18 documented as of this encounter
--- OUTSIDE RECORDS SUMMARY | 2024-04-22 23:48 | XMS_ITS | Encounter Summary ---
Author Organization [facility] Address [address] [place] [address] Care Team Providers Care Engine Setter Name Role Phone Juma Herrera MD Unavailable Shonda Sánchez OPERATIONS LEAD Primary Care Provider [phone] Encounter Details Date Type Department Care Team (Late st Contact Info) Description 08/03/2021 Orders Only [facility] Neurology - [address] [place] [address] [place], [place] [address] Yee Rodriguez, [facility] [address] [facility] [address] [place] [address] Social History Tobacco Use Types [...] erenumab-aooe (AIMOVIG AUTOINJECTOR) 70 mg/mL auto-injector Inject 1 mL into the skin every 28 days for 10 days. 1 mL 08/03/2021 08/13/2021 documented in this encounter Plan of Treatment Upcoming Encounters Date Type Department Care Team (Late st Contact Info) Description 04/27/2024 14:30 EDT Telemedicine [facility] Neurology [address] [phone] Kj Gloria MD PhD [address] [place] [address] 2 [place] [phone] 04/30/2024 9:30 EDT Office Visit [facility] Interventional Pain [address] [place], [place] [phone] Catalino Garrett MD 62 [facility] [address] [place] [address] 09/18/2024 11:00 EST Office Visit [facility] Bariatric Surgery - [place] [address] [place] [address] Allen Thompson PA-C 111 [facility], [facility] 5 [place] [address] documented as of this encounter Visit Diagnoses Not on filedocumented in this encounter Care Teams Engine Setter Relationship Specialty Start Date End Date Shonda Sánchez NP [address] [place] [address] PCP - General 03/14/21 01/31/22 Juma Herrera MD [address] [facility] [place] [address] 12/08/18 documented as of this encounter
--- OUTSIDE RECORDS SUMMARY | 2024-04-22 23:48 | XMS_ITS | Encounter Summary ---
Author Organization [facility] Address [address] [place] [address] Care Team Providers Care Advertising Director Name Role Phone Juma Herrera MD Unavailable Shonda Sánchez NP Primary Care Provider [phone] [facility] [place] Primary Care Provider [phone] Curtis Burns MD Primary Care Provider [phone] Reason for Referral * Radiology Services (Routine/Next Available) - Authorization Not Required Specialty Diagnoses / Procedures [facility] Referred To Contact Diagnoses Back pain, unspecified back location, unspecified back pain laterality, unspecified chronicity Procedures XR ENTIRE SPINE 2-3 VIEWS Kj Child MD [address] [place] [address] [facility] Referral ID Status Reason Start Date Expiration Date Visits Requested Visits Authorized [id number] Authorization Not Required 1 1 1 Encounter Details Date Type Department Care Team (Late st Contact Info) Description 07/17/2021 Orders Only [facility] Spine Program - [place] [address] Kj Child MD [address] [place] [address] Back pain, unspecified back location, unspecified back pain laterality, unspecified chronicity (Primary Dx); Right shoulder pain, unspecified chronicity Social History Tobacco Use Types Packs/Day Years Used Date Smoking Tobacco: Former Cigarettes Q uit: 01/13/2009 Smokeless Tobacco: Never Alcohol Use Standard Drinks/Week Comments Yes 0 (1 standard drink = 0.6 oz pur e alcohol) very rarely Interpersonal Safety Answer Date Record ed Physically Hurt Never 04/04/2020 Verbally Threaten Not on file 04/04/2020 Sex and Gender Information Value Date Recorded Sex Assigned at Not on file Gender Identity Female 10/05/2021 12:31 EST Sexual Orientation Not on file COVID-19 Exposure Response Date Recorded In the last month, have you been in contact with someone who was confirmed or suspected to have Coronavirus / COVID-19? No / Unsure 06/22/2021 16:01 EDT documented as of this encounter Functional Status [...] Info) Description 04/27/2024 14:30 EDT Telemedicine [facility] Neurology - [address] [phone] Kj Gloria MD PhD 1 [facility], Level 2 [place] [phone] 04/30/2024 9:30 EDT Office Visit [facility] Interventional Pain [address] [place] [address] Catalino Garrett MD [address] [place] [address] 09/18/2024 11:00 EST Office Visit [facility] Bariatric Surgery - [place] [address] [place], [place] [phone] Allen Thompson PA-C 111 [facility], Level 5 [place] [phone] documented as of this encounter Results * XR ENTIRE SPINE 2-3 VIEWS (07/18/2021 14:18 EST) Anatomical Region Laterality Modality Spine Computed Radiogr aphy 07/19/2021 13:2 5 EST Impressions 07/19/2021 13:25 EST Findings/Impression: Very mild levocurvature of the thoracic spine and dextrocurvature of the lumbar spine. Grade 1 anterolisthesis of L3 on L4. Otherwise, alignment on the lateral view is normal. Anterior fusion hardware at C6-7 and posterior fusion hardware at L5- S1. No evidence of hardware complication. A spinal stimulator device projects over the soft tissues of the lower back. Surgical clips project over the right upper quadrant. Vertebral body heights are normal. No severe disc height loss. Narrative 07/19/2021 13:25 EST XR ENTIRE SPINE 2-3 VIEWS ??07/18/2021 1:30 PM Clinical History/Comments: back pain. Technique: AP and lateral views of the entire spine Comparison: None Procedure Note Marques Roper MD - 07/19/2021 XR ENTIRE SPINE 2-3 VIEWS 07/18/2021 1:30 PM Clinical History/Comments: back pain. Technique: AP and lateral views of the entire spine Comparison: None IMPRESSION Findings/Impression: Very mild levocurvature of the thoracic spine and dextrocurvature of thelumbar spine. Grade 1 anterolisthesis of L3 on L4. Otherwise, alignment onthe lateral view is normal. Anterior fusion hardware at C6-7 and posteriorfusion hardware at L5-S1. No evidence of hardware complication. A spinalstimulator device projects over the soft tissues of the lower back.Surgical clips project over the right upper quadrant. Vertebral bodyheights are normal. No severe disc height loss. Kj Child MD IMG DIAGNOSTIC I MAGING ORDERABLES documented in this encounter Visit Diagnoses Diagnosis Back pain, unspecified back location, unspecified back pain laterality, unspecified chronicity- Primary Right shoulder pain, unspecified chronicity Back pain, unspecified back location, unspecified back pain laterality, unspecified chronicity documented in this encounter Additional Health Concerns Infection Onset Date Last Indicated Resolved Time COVID-19 08/15/2021 08/15/2021 09/04/2021 22:1 5 EST documented as of this encounter Care Teams Advertising Director Relationship Specialty Start Date End Date Shonda Sánchez NP [address] [place] [phone] PCP - General 03/14/21 01/31/22 [facility], [place] [address] [place] [address] PCP - General 02/01/22 07/05/22 Curtis Burns MD [address] [place] [address] PCP - General Emergency Medicine 07/06/22 Juma Herrera MD [address] [facility] [address] 12/08/18 documented as of this encounter
--- OUTSIDE RECORDS SUMMARY | 2024-04-22 23:48 | XMS_ITS | Encounter Summary ---
Author Organization [facility] Address [address] [place] [address] Care Team Providers Care Brass Finisher Name Role Phone Juma Herrera MD Unavailable Shonda Sánchez NP Primary Care Provider [phone] Reason for Referral * Radiology Services (Routine/Next Available) - Authorization Not Required Specialty Diagnoses / Procedures Referred By Contac t Referred To Contact Radiology Diagnoses Chronic right shoulder pain Procedures MR SHOULDER WO CONTRAST RIGHT Jun Balbuena MD [address] [place] [address] [facility] Referral ID Status Reason Start Date Expiration Date Visits Requested Visits Authorized [id number] Authorization Not Required 09/12/2021 1 1 * Radiology Services (Routine/Next Available) - Authorization Not Required Specialty Diagnoses / Procedures Referred By Contac t Referred To Contact Diagnoses Subluxation of right sternoclavicular joint, initial encounter Osteoarthritis of right sternoclavicular joint Procedures CT CLAVICLE RIGHT WO CONTRAST Jun Balbuena MD [address] [place] [address] [facility] Referral ID Status Reason Start Date Expiration Date Visits Requested Visits Authorized [id number] Authorization Not Required 09/12/2021 1 1 Reason for Visit * Reason Comments Pain * Consult (See Order Priority) - Order Cancelled Specialty Diagnoses / Procedures Referred By Contmarco a t Referred To Contact Orthopedic Surgery Diagnoses Right shoulder pain, unspecified chronicity Kj Child MD [address] [place] [address] [place] [address] Jun Balbuena MD [address] [place] [phone] Referral ID Status Reason Start Date Expiration Date Visits Requested Visits Authorized [id number] Order Cancelled Specialty Services Required 1 1 1 Encounter Details Date Type Department Care Team (Latest Contact Info) Description 09/12/2021 14:30 EST Office Visit [facility] Sports Medicine Program - [address] [address] Jun Balbuena MD [address] [place] [address] Subluxation of right sternoclavicular joint, initial encounter (Primary Dx); Osteoarthritis of right sternoclavicular joint; Chronic right shoulder pain Social History Tobacco [...] Progress Notes * Jun Balbuena MD - 09/12/2021 1430 EST Chief Complaint Patient presents with ??? Right Shoulder - Pain Tia Rooney is seen in consultation at the request of Kj Child MD for evaluation ofright shoulder pain. SUBJECTIVE: Tia Rooney is a 46 y.o. female who presents to the office with a long standing history of rightposterior shoulder pain. She reports that many years ago her chiropractor noticed a large lump in the region of her scapula. Xrays were negative. [place] to me muscular. After 3 weeks, the lump went away. She then hit her shoulder on a table saw and eventually got the wound evaluated for an infection.She then noticed a lump in the front [...] Arthritis ??? Back pain ??? Bipolar disorder (HCC) ??? Breathing problem ??? Depression ??? Diabetes mellitus ([facility]) ??? Drug abuse ([facility]) ([facility]) ??? Environmental allergies ??? Eye problem ??? Generalized headaches ??? Headache(784.0) ??? Heart disease ??? History of substance abuse (HCC-CMS) ([facility]) ??? Hypertension ??? Kidney disease ??? Mental disorder ??? Nervousness(799.21) ??? Numbness ??? Personality disorder (HCC-CMS) ([facility]) ??? Plantar fasciitis ??? PTSD (post-traumatic stress disorder) ??? Tarsal tunnel syndrome Patient Active Problem List Diagnosis ??? Lumbar radiculopathy ??? Os trigonum syndrome ??? Tarsal tunnel syndrome of right side ??? Idiopathic peripheral neuropathy ??? Cervicalgia ??? Morbid obesity with BMI of 45.0-49.9, adult ([facility]) ([facility]) ??? 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 ROS: A 12 system comprehensive review of [...] I will keep you up to date on Tia Rooney's progress. Jun Balbuena M.D. 09/12/2021 16:53 Cc: Shonda Sánchez NP and Bro Child MD documented in this encounter Plan of Treatment Upcoming Encounters Date Type Department Care Team (Late st Contact Info) Description 04/27/2024 14:30 EDT Telemedicine [facility] Neurology - [address] [phone] Kj Gloria MD PhD 1 [facility], Level 2 [place] [phone] 04/30/2024 9:30 EDT Office Visit [facility] Interventional Pain [address] [facility] [place], [place] [phone] Catalino Garrett MD [address] [place] [address] 09/18/2024 11:00 EST Office Visit [facility] Bariatric Surgery - [place] [address] [address] [place], [place] [address] Allen Thompson PA-C 111 [facility], [facility], Level [address] [place] [phone] documented as of this encounter Results * CT CLAVICLE RIGHT [...] joint on thestatic images. Jun Balbuena MD [facility] ORDERABLES * MR SHOULDER WO CONTRAST RIGHT (10/05/2021 [...] multiplanar and multisequence MR [facility]. No contrast was administered. HISTORY: [...] Diagnosis Subluxation of right sternoclavicular joint, initial encounter- Primary Osteoarthritis of right sternoclavicular joint Chronic right shoulder pain Pain in joint, shoulder region Chronic right shoulder pain Pain in joint, shoulder region Subluxation of right sternoclavicular joint, initial encounter Osteoarthritis of right sternoclavicular joint documented in this encounter Care Teams Brass Finisher Relationship Specialty Start Date End Date Shonda Sánchez NP [address] [place] [phone] PCP - General 03/14/21 01/31/22 Juma Herrera MD [address] [place] [phone] 12/08/18 documented as of this encounter
--- OUTSIDE RECORDS SUMMARY | 2024-04-22 23:48 | XMS_ITS | Encounter Summary ---
Author Organization [facility] Address [address] [place] [address] Care Team Providers Care Solar Energy Systems Designer Name Role Phone Juma Herrera MD Unavailable Shonda Sánchez NP Primary Care Provider [phone] Reason for Referral * Medication Prior Authorization (See Order Priority) - Authorized Specialty Diagnoses / Procedures [facility] Referred To Contact Pharmacy Diagnoses Chronic migraine without aura without status migrainosus, not intractable Kj Gloria MD PhD 1 [facility] 2 [place] [address] [facility] [address] [place] [id number] Referral ID Status Reason Start Date Expiration Date Visits Requested Visits Authorized [id number] Authorized Medication Prior Authorization 1 1 1 Question Answer Medication to be Prior Authorized: Aimovig reauth Comments The purpose of this request is to inform precertification staff that the requested service needs to be reviewed for prior-authorization. Reason for Visit * Reason Onset Date Comments Prior Auth, Medication 06/05/2021 Aimovig 7 0mg/mL Pen (Q 28 days) Encounter Details Date Type Department Care Team ([facility] st Contact Info) Description 06/05/2021 Telephone [facility] Neurology - S [address] [id number] Kj Gloria MD PhD [address] [phone] Prior Auth, Medication (Aimovig 70mg/mL Pen (Q 28 days)) Social History Tobacco Use Types Packs/Day Years [...] Description 04/27/2024 14:30 EDT Telemedicine [facility] Neurology - S [address] [address] Kj Gloria MD PhD 1 [facility] 2 [place] [address] 04/30/2024 9:30 EDT Office Visit [facility] Interventional Pain [address] [place], [place] [phone] Catalino Garrett MD [address] [place] [address] 09/18/2024 11:00 EST Office Visit [facility] Bariatric Surgery - [place] [address] [place], [place] [phone] Allen Thompson PA-C 111 [facility], [facility] 5 [place] [phone] Scheduled Referrals Name Type Priority Associated Diagnoses Order Schedule AMB MEDICATION PRIOR AUTHORIZATION REQUEST Outpatient Referral Routine/Next Available Chronic migraine without aura without status migrainosus, not intractable Ordered: 06/05/2021 documented as of this encounter Visit Diagnoses Diagnosis Chronic migraine without aura without status migrainosus, not intractable- Primary Chronic migraine without aura, without mention of intractable migraine without mention of status migrainosus documented in this encounter Additional Health Concerns Infection Onset Date Last Indicated Resolved Time COVID-19 08/15/2021 08/15/2021 09/04/2021 22:1 5 EST documented as of this encounter Care Teams Solar Energy Systems Designer Relationship Specialty Start Date End Date Shonda Sánchez NP [address] [place] [address] [address] [place] [address] PCP - General 03/14/21 01/31/22 Juma Herrera MD [address] [facility] [place] [address] 12/08/18 documented as of this encounter
--- OUTSIDE RECORDS SUMMARY | 2024-04-22 23:48 | XMS_ITS | Encounter Summary ---
Author Organization [facility] Address [address] [place] [address] Care Team Providers Care Vapor Coater Name Role Phone Juma Herrera MD Unavailable Shonda Sánchez EDGE DRUMMER Primary Care Provider [phone] Encounter Details Date Type Department Care Team (Late st Contact Info) Description 07/05/2021 Specialty Pharmacy [facility] Ambulatory Pharmacy - [facility] [address] [place], [place] [phone] Yee Rodriguez, [facility] [address] [facility] 23 [place] [address] Social History Tobacco Use Types [...] [facility] - [address] [address] Kj Gloria MD PhD 1 [facility] Level 2 [place] [phone] 04/30/2024 9:30 EDT Office Visit [facility] Interventional Pain 62 [facility] [place] [address] Catalino Garrett MD 62 [facility] [address] [place] [address] 09/18/2024 11:00 EST Office Visit [facility] Bariatric Surgery - [place] [address] [place], [place] [address] Allen Thompson PA-C 111 [facility], [facility], Level 5 [place] [address] documented as of this encounter Visit Diagnoses Not on filedocumented in this encounter Care Teams Vapor Coater Relationship Specialty Start Date End Date Shonda Sánchez NP [address] [place] [address] [address] [place] [address] PCP - General 03/14/21 01/31/22 Juma Herrera MD [address] [facility] [place] [address] 12/08/18 documented as of this encounter
--- OUTSIDE RECORDS SUMMARY | 2024-04-22 23:48 | XMS_ITS | Encounter Summary ---
Author Organization [facility] Address [address] [place] [address] Care Team Providers Care Escrow Clerk Name Role Phone Juma Herrera MD Unavailable Shonda Sánchez NP Primary Care Provider [phone] Reason for Visit * Reason Comments Pain * Office Procedure (Routine) - Specialty Report Received Specialty Diagnoses / Procedures Referred By Wili mireles Referred To Contact Pain Medicine Diagnoses Sacroiliitis, not elsewhere classified (HCC-CMS) Pain in right knee Other cervical disc degeneration, unspecified cervical region repeat si joint injection Procedures [place] INJECT SI JOINT ARTHRGRPHY&/ANES/STEROID W/IMAGE PROCEDURE SHORT [facility] [address] [facility] [place] [address] Catalino Garrett MD [address] [place] [address] Referral ID Status Reason Start Date Expiration Date V isits Requested Visits Authorized [id number] Specialty Report Received 1 1 Encounter Details Date Type Department Care Team (Latest Contact Info) Description 05/17/2021 9:[address] [facility] Interventional Pain [address] [place] [address] Catalino Garrett MD 62 [facility] [address] [place] [address] Sacroiliitis (HCC-CMS) (Primary Dx); Chronic pain of right knee; DDD (degenerative disc disease), cervical; Right anterior shoulder pain Social History Tobacco Use Types [...] have Coronavirus / COVID-19? No / Unsure 05/17/2021 8:56 EDT documented as of this encounter Last Filed [...] encounter Patient Instructions * Patient Instructions* Albina Cain RN - 05/17/2021 9:30 EDT [facility] [address] [address] Patient Instructions You have had your bilateral [...] contains Iodine and Alcohol and leaves an orange film on your skin. Per the manufacturers instructions [...] documented in this encounter Progress Notes * Candida Virgen MA - 05/17/2021 0930 EDT [place] [facility] Rooming Note Does patient have a Senior Unix Administrator? yes Is patient NPO? (Solids since midnight [...] Other: no * Catalino Garrett MD - 05/17/2021 0930 EDT Patient Name: Tia Rooney : 1975 Date of Service: 05/17/2021 Requesting physician: Dr. Herrera Foot Setter: Catalino Garrett MD Staff Registered Nurse: Dr. Saldaña Procedure: Diagnostic and Therapeutic sacroiliac [...] 70 mg into the skin every 28days. (Patient not taking: Reported on 05/17/2021) 3 [...] every 6 hours as needed for Nausea (Patient not taking: Reported on 04/05/2021) 60 Tab 0 ??? rizatriptan (MAXALT) 10 mg tablet Take 10 mg by mouth once as needed. May repeat in 2 hours if needed (Patient not taking: Reported on 02/21/2021) ??? SUMAtriptan Succinate 6 mg/0.5 mL cartridge Inject 6 mg into the skin as needed (migraine). Take as directed. (Patient not taking: Reported on 05/17/2021) [...] Depo-Medrol and 3 ml 0.5% Bupivacaine were injected for a total of 4 ml. See nursing [...] - - Comment - - Gerry MEHTA * Albina Cain RN - 05/17/2021 0930 EDT ATTENTION: This Checklist should be reviewed with the patient, provider, nurse/MA, and distribution engineering technologist in the room prior to [...] Description 04/27/2024 14:30 EDT Telemedicine [facility] Neurology - S [place] 1 [place], [place] [address] Kj Gloria MD PhD 1 [facility], Level 2 [place] [phone] 04/30/2024 9:30 EDT Office Visit [facility] Interventional Pain 62 [place], [place] [phone] Catalino Garrett MD 62 [facility] [address] [place] [phone] 09/18/2024 11:00 EST Office Visit [facility] Bariatric Surgery [facility] 353 [place], [place] [address] Allen Thompson PA-C 111 [facility], Level 5 [place] [phone] documented as of this encounter Visit Diagnoses Diagnosis Sacroiliitis ([facility])- Primary Sacroiliitis, not elsewhere classified Chronic pain of right knee DDD (degenerative disc disease), cervical Degeneration of cervical intervertebral disc Right anterior shoulder pain documented in this encounter Administered Medications Inactive Administered Medications - up to 3 most recent administrations Medication Order MAR Action Action Date Dose Rate Site bupivacaine (PF) (MARCAINE) 0.5% injection 6 mL 6 mL, intra-articular, NOW X1, 1 dose, On Sat05/17/21 at 1000, Routine Given by Other 05/17/2021 9:42 EDT 6 mL methylPREDNISolone ACETATE (DEPO-MEDROL) injection 80 mg 80 mg, intra-articular, NOW X1, 1 dose, On Sat05/17/21 at 1000, Routine Given by Other 05/17/2021 9:42 EDT 80 mg documented in this encounter Care Teams Escrow Clerk Relationship Specialty Start Date End Date Shonda Sánchez NP [address] [place] [phone] PCP - General 03/14/21 01/31/22 Juma Herrera MD [address] [facility] [place] [address] 12/08/18 documented as of this encounter
--- OUTSIDE RECORDS SUMMARY | 2024-04-22 23:48 | XMS_ITS | Encounter Summary ---
Author Organization [facility] Address [address] [place] [address] Care Team Providers Care Manager Trainee Name Role Phone Juma Herrera MD Unavailable Shonda Sánchez NP Primary Care Provider [phone] Encounter Details Date Type Department Care Team (Late st Contact Info) Description 08/30/2021 Specialty Pharmacy [facility] Amb[facility] - [place] [address] [place], [place] [phone] Yee Rodriguez, [facility] [address] [facility] 23 [place] [address] Social History Tobacco Use Types [...] Contact Info) Description 04/27/2024 14:30 EDT Telemedicine [facility] Neurology - S [address] [phone] Kj Gloria MD PhD 1 [facility] 2 [place] [phone] 04/30/2024 9:30 EDT Office Visit [facility] Interventional Pain [address] [place] [address] Catalino Garrett MD 62 [facility] [address] [place] [address] 09/18/2024 11:00 EST Office Visit [facility] Bariatric Surgery [address] [address] Allen Thompson, PALizettC 111 [facility], Level 5 [place] [phone] documented as of this encounter Visit Diagnoses Not on filedocumented in this encounter Additional Health Concerns Infection Onset Date Last Indicated Resolved Time COVID-19 08/15/2021 08/15/2021 09/04/2021 22:1 5 EST documented as of this encounter Care Teams Manager Trainee Relationship Specialty Start Date End Date Shonda Sánchez NP [address] [place] [address] [address] [place] [address] PCP - General 03/14/21 01/31/22 Juma Herrera MD [address] [place] [address] 12/08/18 documented as of this encounter
--- OUTSIDE RECORDS SUMMARY | 2024-04-22 23:48 | XMS_ITS | Encounter Summary ---
Author Organization [facility] Address [address] [place] [address] Care Team Providers Care Buffer Chrome Name Role Phone Juma Herrera MD Unavailable Juma Herrera MD Primary Care Provider [phone] Reason for Visit * Reason Onset Date Comments Prior Auth, Medication 02/28/2021 Aimovig 7 0mg/mL (Q 28 days) Encounter Details Date Type Department Care Team (Late st Contact Info) Description 02/28/2021 Telephone [facility] Neurology - S [place] [address] [place] [phone] Kj Gloria MD PhD 1 [facility] 2 [place] [address] Prior Auth, Medication (Aimovig 70mg/mL (Q 28 days)) Social History Tobacco Use [...] 28 days. 3 Syringe 3 03/06/2021 12/20/2021 documented in this encounter Miscellaneous Notes * Telephone Encounter - Hortencia Rehman - 03/06/2021 1112 EDT Prior Authorization Approval Medication: Aimovig Approved: 12/06/2020 to 06/04/2021 Authorization Number: N/A Benefits Information: CRK Part D Required [facility]acy: [facility] Preferred Pharmacy: [facility] Prior Authorization Submission Process Medication: Aimovig Insurance: CRK Part D Date PA Request Received: 03/06/2021 PA Submission Date: 03/06/2021 [facility] Srivastava: [id number] Submitted by: Hortencia Phone: [phone] * Telephone Encounter - Hortencia Rehman - 02/28/2021 1623 EDT Prior Authorization Denial Medication: Emgality Denial Date: 03/06/2021 Denial Reason: Must have a trial/failure or contraindication to the plan's preferred therapy (Aimiovig). Prior Authorization Submission Process Medication: Emgality (Load & Maint) Insurance: CRK Part D Date PA Request Received: 02/21/2021 PA Submission Date: 03/06/2021 [facility] Srivastava: [id number] Submitted by: Hortencia Phone: [phone] documented in this encounter Plan of Treatment Upcoming Encounters Date Type Department Care Team (Late st Contact Info) Description 04/27/2024 14:30 EDT Telemedicine [facility] Neurology - S [place] [address] [place], [place] [phone] Kj Gloria MD PhD 1 [facility], Level 2 [place] [phone] 04/30/2024 9:30 EDT Office Visit [facility] Interventional Pain [address] [place], [place] [phone] Catalino Garrett MD 62 [facility] [address] [place] [address] 09/18/2024 11:00 EST Office Visit [facility] Bariatric Surgery - [place] 353 [place], [place] [address] Allen Thompson, MARGARITA-C 111 [facility], Level [address] [place] [phone] documented as of this encounter Visit Diagnoses Not on filedocumented in this encounter Care Teams Buffer Chrome Relationship Specialty Start Date End Date Juma Herrera MD [address] [place] [address] PCP - General 01/07/19 03/13/21 Juma Herrera MD [address] [place] [address] 12/08/18 documented as of this encounter
--- OUTSIDE RECORDS SUMMARY | 2024-04-22 23:48 | XMS_ITS | Encounter Summary ---
Author Organization [facility] Address [address] [place] [address] Care Team Providers Care Billing Representative Name Role Phone Juma Herrera MD Unavailable Shonda Sánchez GREY IRON MOLDER Primary Care Provider [phone] Reason for Visit * Reason Onset Date Comments Appointment Related 07/06/2021 Encounter Details Date Type Department Care Team ([facility] st Contact Info) Description 07/06/[address] [facility] Neurology - S [place] [address] [place] [phone] Kj Gloria MD PhD 1 [facility] 2 [place] [phone] Appointment Related Social History Tobacco Use Types [...] encounter Miscellaneous Notes * Telephone Encounter - Ankit Lucia - 07/06/2021 1229 EDT Check out 06/27/21 - Return in 6 months Called Tia and scheduled TVD FUR with Dr Gloria 12/18/21 at 11:30am TVD FUR 6M - L/S 06/27/21 [email or web address] [phone] ZOOM scheduling needed documented in this encounter Plan of Treatment Upcoming Encounters Date Type Department Care Team (Late st Contact Info) Description 04/27/2024 14:30 EDT Telemedicine [facility] Neurology - S [address] [phone] Kj Gloria MD PhD 1 [facility], Level 2 [place] [phone] 04/30/2024 9:30 EDT Office Visit [facility] Interventional Pain [address] [place], [place] [phone] Catalino Garrett MD 62 [facility] [address] [place] [address] 09/18/2024 11:00 EST Office Visit [facility] Bariatric Surgery - [place] [address] [place] [address] Allen Thompson PA-C [address] [place] [address], [address] [place] [phone] documented as of this encounter Visit Diagnoses Not on filedocumented in this encounter Additional Health Concerns Infection Onset Date Last Indicated Resolved Time COVID-19 08/15/2021 08/15/2021 09/04/2021 22:1 5 EST documented as of this encounter Care Teams Billing Representative Relationship Specialty Start Date End Date Shonda Sánchez NP [address] [facility] [address] [place] [address] PCP - General 03/14/21 01/31/22 Juma Herrera MD [address] [facility] [place] [address] 12/08/18 documented as of this encounter
--- OUTSIDE RECORDS SUMMARY | 2024-04-22 23:48 | XMS_ITS | Encounter Summary ---
Author Organization [facility] Address [address] [place] [address] Care Team Providers Care Bank And Savings Securities Trader Name Role Phone Juma Herrera MD Unavailable Shonda Sánchez VISE HAND Primary Care Provider [phone] Reason for Visit * Reason Onset Date Comments Appointment Related 03/15/2021 Encounter Details Date Type Department Care Team (Late st Contact Info) Description 03/15/2021 Telephone [facility] Interventional Pain 62 [facility] [place] [address] Catalino Garrett MD [address] [facility] [address] [place] [address] Appointment Related Social History Tobacco [...] have Coronavirus / COVID-19? No / Unsure 03/20/2021 7:46 EDT documented as of this encounter Functional [...] it was not beneficial. Performs home exercises such as stretching and walking daily for 15-20 minutes. Forwarded to prior auth. * Telephone Encounter - Molly Crawford - 03/15/2021 1611 EDT Please obtain 3 month results from last C6-7 cervical epidural under fluoroscopydone on 11/17/2020, current pain score, and ongoing conservative therapy. documented in this encounter Plan of Treatment Upcoming Encounters Date Type Department Care Team (Late st Contact Info) Description 04/27/2024 14:30 EDT Telemedicine [facility] Neurology - S [address] [phone] Kj Gloria MD PhD 1 [facility], Level 2 [place] [phone] 04/30/2024 9:30 EDT Office Visit [facility] Interventional Pain 62 [facility] [place] [address] Catalino Garrett MD 62 [facility] [address] [place] [address] 09/18/2024 11:00 EST Office Visit [facility] Bariatric Surgery [facility] [address] [place], [place] [phone] Allen Thompson, ZHOUC 111 [facility], [facility], Level [address] [place] [address] documented as of this encounter Visit Diagnoses Not on filedocumented in this encounter Care Teams Bank And Savings Securities Trader Relationship Specialty Start Date End Date Shonda Sánchez NP [address] [facility] [address] [place] [phone] PCP - General 03/14/21 01/31/22 Juma Herrera MD [address] [facility] [place] [address] 12/08/18 documented as of this encounter
--- OUTSIDE RECORDS SUMMARY | 2024-04-22 23:48 | XMS_ITS | Encounter Summary ---
Author Organization [facility] Address [address] [place] [address] Care Team Providers Care Vending Machine Coin Collector Name Role Phone Juma Herrera MD Unavailable Shonda Sánchez DIRECTOR RADIO Primary Care Provider [phone] Encounter Details Date Type Department Care Team ([facility] st Contact Info) Description 06/06/2021 Specialty Pharmacy [facility] Ambulatory Pharmacy - [facility] [address] [place], [place] [phone] Yee Rodriguez, [facility] [address] [facility] 23 [place] [address] Social History Tobacco Use Types [...] Description 04/27/2024 14:30 EDT Telemedicine [facility] Neurology - [address] [phone] Kj Gloria MD PhD 1 [facility] Level 2 [place] [phone] 04/30/2024 9:30 EDT Office Visit [facility] Interventional Pain 62 [facility] [place] [address] Catalino Garrett MD 62 [facility] [address] [place] [address] 09/18/2024 11:00 EST Office Visit [facility] Bariatric Surgery - [place] [address] [place], [place] [address] Allen Thompson PA-C 111 [facility], [facility], Level 5 [place] [address] documented as of this encounter Visit Diagnoses Not on filedocumented in this encounter Care Teams Vending Machine Coin Collector Relationship Specialty Start Date End Date Shonda Sánchez NP [address] [place] [address] [address] [place] [address] PCP - General 03/14/21 01/31/22 Juma Herrera MD [address] [facility] [place] [address] 12/08/18 documented as of this encounter
--- OUTSIDE RECORDS SUMMARY | 2024-04-22 23:48 | XMS_ITS | Encounter Summary ---
Author Organization [facility] Address [address] [place] [address] Care Team Providers Care Assistant Professor Of Education Name Role Phone Juma Herrera MD Unavailable Juma Herrera MD Primary Care Provider [phone] Shonda Sánchez BENCH WORKER Primary Care Provider [phone] Reason for Visit * Reason Onset Date Comments Appointment Related 02/24/2021 Encounter Details Date Type Department Care Team (Late st Contact Info) Description 02/24/2021 Telephone [facility] Neurology - S [address] [phone] Kj Gloria MD PhD [address] [place] [address] 2 [place] [address] Appointment Related Social History Tobacco [...] encounter Miscellaneous Notes * Telephone Encounter - Candida Hankins - 03/14/2021 1214 EDT Spoke to Tia, scheduled the FUR via Televideo with Dr. Gloria on 06/27/21 at 11:30 AM Confirmed email - [email or web address] Scheduling Needed * Telephone Encounter - Ankit Lucia - 02/24/2021 1103 [...] [facility] Neurology - S [address] [phone] Kj Gloria MD PhD 1 [facility], Level 2 [place] [phone] 04/30/2024 9:30 EDT Office Visit [facility] Interventional Pain [address] [place], [place] [phone] Catalino Garrett MD [address] [place] [phone] 09/18/2024 11:00 EST Office Visit [facility] Bariatric Surgery - [place] [address] [place], [place] [address] Allen Thompson PA-C 111 [facility], [facility], Level [address] [place] [address] documented as of this encounter Visit Diagnoses Not on filedocumented in this encounter Care Teams Assistant Professor Of Education Relationship Specialty Start Date End Date Juma Herrera MD [address] [employer] [place] [address] PCP - General 01/07/19 03/13/21 Shonda Sáncehz NP [address] [place] [address] [address] [place] [address] PCP - General 03/14/21 01/31/22 Juma Herrera MD [address] [place] [address] 12/08/18 documented as of this encounter
--- OUTSIDE RECORDS SUMMARY | 2024-04-22 23:48 | XMS_ITS | Encounter Summary ---
Author Organization [facility] Address [address] [place] [address] Care Team Providers Care Law Researcher Name Role Phone Juma Herrera MD Unavailable Shonda Sánchez NP Primary Care Provider [phone] Encounter Details Date Type Department Care Team (Late st Contact Info) Description 05/12/2021 Specialty Pharmacy [facility] - [facility] [address] [place], [place] [id number] Yee Rodriguez, [facility] [address] [facility] [address] [place] [address] Social History Tobacco Use Types [...] Contact Info) Description 04/27/2024 14:30 EDT Telemedicine [facility] Neurology - S [place] 1 [place], [place] [address] Kj Gloria MD PhD 1 [facility] 2 [place] [phone] 04/30/2024 9:30 EDT Office Visit [facility] Interventional Pain [address] [facility] [place], [place] [phone] Catalino Garrett MD [address] [facility] [address] [place] [address] 09/18/2024 11:00 EST Office Visit [facility] Bariatric Surgery [facility] [address] [place], [place] [address] Allen Thompson, PA-C [address] [place] [address] Level 5 [place] [phone] documented as of this encounter Visit Diagnoses Not on filedocumented in this encounter Care Teams Law Researcher Relationship Specialty Start Date End Date Shonda Sánchez NP [address] [place] [address] [address] [place] [phone] PCP - General 03/14/21 01/31/22 Juma Herrera MD [address] [place] [address] 12/08/18 documented as of this encounter
--- OUTSIDE RECORDS SUMMARY | 2024-04-22 23:48 | XMS_ITS | Encounter Summary ---
Author Organization [facility] Address [address] [place] [address] Care Team Providers Care Film Painter Name Role Phone Juma Herrera MD Unavailable Shonda Sánchez DISABILITY INSURANCE HEARING OFFICER Primary Care Provider [phone] Reason for Visit * Reason Comments Follow-up Telemedicine Video Visit Encounter Details Date Type Department Care Team (Late st Contact Info) Description 06/27/2021 11:30 EDT Telemedicine [facility] - S [address] [id number] Kj Gloria MD PhD 1 [facility] 2 [place] [address] Chronic migraine without aura without [...] Notes * Kj Gloria MD PhD - 06/27/2021 1130 [...] 70mg by her insurance, with the initial doseon 03/24/21. She has had 4 doses (3 [...] Description 04/27/2024 14:30 EDT Telemedicine [facility] - S [address] [address] Kj Gloria MD PhD 1 [facility], Level 2 [place] [phone] 04/30/2024 9:30 EDT Office Visit [facility] Interventional Pain [address] [place] [address] Catalino Garrett MD 62 [facility] [address] [place] [address] 09/18/2024 11:00 EST Office Visit [facility] B[facility] [address] [place], [place] [address] Allen Thompson, PA-C 111 [facility], Level 5 [place] [address] documented as of this encounter Visit Diagnoses Diagnosis Chronic migraine without aura without status migrainosus, not intractable- Primary Chronic migraine without aura, without mention of intractable migraine without mention of status migrainosus documented in this encounter Care Teams Film Painter Relationship Specialty Start Date End Date Shonda Sánchez NP [address] [facility] [facility] [address] [place] [phone] PCP - General 03/14/21 01/31/22 Juma Herrera MD [address] [facility] [place] [phone] 12/08/18 documented as of this encounter
--- OUTSIDE RECORDS SUMMARY | 2024-04-22 23:48 | XMS_ITS | Encounter Summary ---
Author Organization [facility] Address [address] [place] [address] Care Team Providers Care As400 Analyst Name Role Phone Juma Herrera MD Unavailable Shonda Sánchez CLEAT MAKER Primary Care Provider [phone] Encounter Details Date Type Department Care Team (Latest Contact Info) Description 04/05/2021 Travel Social History Tobacco Use [...] have Coronavirus / COVID-19? No / Unsure 04/05/2021 10:03 EDT documented as of this encounter Functional [...] Description 04/27/2024 14:30 EDT Telemedicine [facility] Neurology - [facility] 1 [place], [place] [address] Kj Gloria MD PhD 1 [facility] Level 2 [place] [phone] 04/30/2024 9:30 EDT Office Visit [facility] Interventional Pain [address] [place] [address] Catalino Garrett MD [address] [facility] [address] [place] [address] 09/18/2024 11:00 EST Office Visit [facility] Bariatric Surgery [facility] [address] [place], [place] [phone] Allen Thompson PA-C 111 [facility], Level 5 [place] [address] documented as of this encounter Visit Diagnoses Not on filedocumented in this encounter Care Teams As400 Analyst Relationship Specialty Start Date End Date Shonda Sánchez NP [address] [facility] [address] [place] [phone] PCP - General 03/14/21 01/31/22 Juma Herrera MD [address] [facility] [place] [place] [phone] 12/08/18 documented as of this encounter
--- OUTSIDE RECORDS SUMMARY | 2024-04-22 23:48 | XMS_ITS | Encounter Summary ---
Author Organization [facility] Address [address] [place] [address] Care Team Providers Care Respiratory Care Practitioner Name Role Phone Juma Herrera MD Unavailable Shonda Sánchez NP Primary Care Provider [phone] Reason for Referral * Radiology Services (Routine/Next Available) - Authorization Not Required Specialty Diagnoses / Procedures Referred By Contac t Referred To Contact Diagnoses Back pain, unspecified back location, unspecified back pain laterality, unspecified chronicity Procedures XR ENTIRE SPINE 2-3 VIEWS Kj Child MD [address] [place] [phone] [facility] Referral ID Status Reason Start Date Expiration Date Visits Requested Visits Authorized [id number] Authorization Not Required 1 1 1 Reason for Visit * Radiology Services (Routine/Next Available) - Authorization Not Required Specialty Diagnoses / Procedures Referred By Contac t Referred To Contact Diagnoses Back pain, unspecified back location, unspecified back pain laterality, unspecified chronicity Procedures XR ENTIRE SPINE 2-3 VIEWS Kj Child MD [address] [place] [phone] [facility] Referral ID Status Reason Start Date Expiration Date Visits Requested Visits Authorized [id number] Authorization Not Required 1 1 1 Encounter Details Date Type Department Care Team (Latest Contact Info) Description 07/18/2021 13:19 EST - 07/18/2021 23:59 EST Hospital Encounter [facility] [address] [place], [place] [phone] Back pain, unspecified back location, unspecified back [...] (THERAGRAN) Take 5 mL by mouth daily. pregabalin (LYRICA) 50 mg capsule Take 2 Caps by mouth 3 times daily. 180 Cap 3 08/21/2012 prochlorperazine (COMPAZINE) 10 mg tabletIndications:S/P laparoscopic sleeve gastrectomy,Gastroesopha geal reflux disease without esophagitis Take 1 Tab by mouth every 6 hours as needed for Nausea 60 Tab 0 08/31/2015 SUMAtriptan Succinate 6 mg/0.5 mL cartridge Inject 6 mg into the skin as needed (migraine). Take as directed. 6 mL 11 02/21/2021 diphenhydrAMINE-acetamin ophen 25-500 mg tablet Take 1 Tablet by mouth at bedtime as needed. 05/17/2022 erenumab-aooe (AIMOVIG AUTOINJECTOR) 70 mg/mL auto-injector Inject 70 mg into the skin every 28 days. 3 Syringe 3 03/06/2021 12/20/2021 LORazepam (ATIVAN) 0.5 mg tablet Take 0.5 mg by mouth at bedtime. 05/17/2022 omeprazole (PRILOSEC) 20 mg capsuleIndications:S/P laparoscopic sleeve gastrectomy,Gastroesopha geal reflux disease without esophagitis Take 2 Caps by mouth daily 60 Cap 3 08/31/2015 09/22/2021 oxyCODONE (ROXICODONE) 5 mg immediate release tablet [...] Description 04/27/2024 14:30 EDT Telemedicine [facility] Neurology - S [place] 1 [place] [address] Kj Gloria MD PhD 1 [facility] Level 2 [place] [phone] 04/30/2024 9:30 EDT Office Visit [facility] Interventional Pain 62 [place], [place] [phone] Catalino Garrett MD 62 [facility] [address] [place] [phone] 09/18/2024 11:00 EST Office Visit [facility] Bariatric Surgery [facility] 353 [place], [place] [address] Allen Thompson PA-C 111 [facility], Level [address] [place] [phone] documented as of this encounter Procedures Procedure Name Priority Date/Time Associated Diagnosis Comments XR ENTIRE SPINE 2-3 VIEWS Routine 07/18/2021 14:18 EST Back pain, unspecified back location, unspecified back pain laterality, unspecified chronicity documented in this encounter Results * XR ENTIRE SPINE [...] chronicity documented in this encounter Care Teams Respiratory Care Practitioner Relationship Specialty Start Date End Date Shonda Sánchez NP [address] [facility] [address] [place] [address] PCP - General 03/14/21 01/31/22 Juma Herrera MD [address] [facility] [place] [address] 12/08/18 documented as of this encounter
--- OUTSIDE RECORDS SUMMARY | 2024-04-22 23:48 | XMS_ITS | Encounter Summary ---
Author Organization [facility] Address [address] [place] [address] Care Team Providers Care Front Clerk Name Role Phone Juma Herrera MD Unavailable Shonda Sánchez NP Primary Care Provider [phone] [facility] Primary Care Provider [phone] Curtis Burns MD Primary Care Provider [phone] Encounter Details Date Type Department Care Team (Late st Contact Info) Description 08/16/2021 Lab Requisition [facility] Pathology & Laboratory Medicine - [facility] [address] [place], [place] [phone] Outr Resulting Lab, Provider Social History Tobacco Use Types Packs/Day Years [...] 04/27/2024 14:30 EDT Telemedicine [facility] Neurology - S [place] 1 [place], [place] [address] Kj Gloria MD PhD 1 [facility] 2 [place] [phone] 04/30/2024 9:30 EDT Office Visit [facility] Interventional Pain 62 [facility] [place] [address] Catalino Garrett MD [address] [facility] [address] [place] [address] 09/18/2024 11:00 EST Office Visit [facility] Bariatric Surgery [facility] [address] [place], [place] [address] Allen Thompson PA-C 111 [facility], Level 5 [place] [phone] documented as of this encounter Procedures Procedure Name Priority Date/Time Associated Diagnosis Comments ZZCOVID-19 TEST [facility] PCR Today 08/15/2021 11:12 EST COVID-19 TESTING Routine 08/15/2021 11:1 2 EST documented in this encounter Results * COVID-19 TEST [facility] PCR (08/15/2021 11:12 EST) Swab 08/15/2021 11:1 2 EST 08/16/2021 16:24 EST Provider Outr Resulting Lab MICROBIOLOGY - GENERAL ORDERABLES [facility] [address] [place] [address] * (ABNORMAL) COVID-19 TESTING (08/15/2021 11:12 EST) COVID-19 rt-PCR Result Positive( AA) Negative 08/17/2021 13:01 EST [facility] Comment: This test has not been FDA cleared or approved. This test has been authorized by FDA under an EUA for use by authorized laboratories. This test has been authorized only for detection of nucleic acid from 2019-nCoV, not for any other viruses or pathogens. This test is only authorized for the duration of the declaration that circumstances exist justifying the authorization of emergency use of in vitro diagnostic tests for detection and/or diagnosis of 2019-nCoV under section 564(b)(1) of Act, 21 U.S.C ?? 360bbb-3(b) (1), unless the authorization is terminated or revoked sooner. This test was developed and its performance characteristics determined by [facility]. It has not been cleared or approved by the US Food and Drug Administration. FDA does not require this test to go through premarket FDA review. This test is used for clinical purposes. It should not be regarded as investigational or for research. This laboratory is certified under the Clinical Laboratory Improvement Amendments (CLIA) as qualified to perform high complexity clinical laboratory testing. This test is based on the [facility] COVID-19 Emergency Use Authorization (EUA) assay, with minor modification as defined by the FDA Performed on the StyleTread 7 Flex RT-PCR System. Performing Lab [facility] Lab 08/17/2021 13:01 EST [facility] Swab 08/15/2021 11:1 2 EST 08/16/2021 16:24 EST Provider Outr Resulting Lab MICROBIOLOGY - GENERAL ORDERABLES [facility] [address] [place] [address] documented in this encounter Visit Diagnoses Not on filedocumented in this encounter Additional Health Concerns Infection Onset Date Last Indicated Resolved Time COVID-19 08/15/2021 08/15/2021 09/04/2021 22:1 5 EST documented as of this encounter Care Teams Front Clerk Relationship Specialty Start Date End Date Shonda Sánchez NP [address] [place] [address] PCP - General 03/14/21 01/31/22 [facility] [address] [place] [address] PCP - General 02/01/22 07/05/22 Curtis Burns MD [address] [place] [address] PCP - General Emergency Medicine 07/06/22 Juma Herrera MD [address] [facility] [place] [address] 12/08/18 documented as of this encounter
--- OUTSIDE RECORDS SUMMARY | 2024-04-22 23:48 | XMS_ITS | Encounter Summary ---
Author Organization [facility] Address [address] [place] [address] Care Team Providers Care Value Analysis Coordinator Name Role Phone Juma Herrera MD Unavailable Shonda Sánchez SPEECH AND LANGUAGE SPECIALIST Primary Care Provider [phone] Reason for Visit * Reason Onset Date Comments Medication Problem 09/22/2021 Encounter Details Date Type Department Care Team (Late st Contact Info) Description 09/22/2021 Telephone [facility] Bariatric Surgery [address] [address] Allen Thompson, PALizettC 111 [facility], [facility], [facility] 5 [place] [address] Medication Problem Social History Tobacco Use Types Packs/Day Years [...] Dispensed Refills Start Date End Da te nystatin (MYCOSTATIN) powder Apply to affected area twice daily. Clean and thoroughly dry area before application. 30 g 1 09/25/2021 documented in this encounter Miscellaneous Notes * Telephone Encounter - Evie Emmanuel RN - 09/25/2021 1433 EST RN spoke to the patient who states Allen Thompson PA-C was going to prescribe her a medication for a rash in her skin folds. RN discussed with Allen BARBER who gave a verbal order for nystatin powder twice daily. Patient notified and verbalized understanding. All questions answered. * Telephone Encounter - Tracy Stiles - 09/22/2021 1405 EST Tia calling, advised went to pharmacy to garbage pick up man powder discussed at this morning's appointment & was advised only RX received was for Omeprazole. Tia requesting RX be sent to [facility] for powder. Can be reached at [phone] if any questions. documented in this encounter Plan of Treatment Upcoming Encounters Date Type Department Care Team (Late st Contact Info) Description 04/27/2024 14:30 EDT Telemedicine [facility] [place] [address] Kj Gloria MD PhD [address] [place] [address] [address] 2 [place] [phone] 04/30/2024 9:30 EDT Office Visit [facility] Interventional Pain [address] [place], [place] [phone] Catalino Garrett MD [address] [facility] [address] [place] [address] 09/18/2024 11:00 EST Office Visit [facility] Bariatric Surgery - [place] [address] [place], [place] [phone] Allen Thompson PA-C 111 [facility], Level 5 [place] [phone] documented as of this encounter Visit Diagnoses Not on filedocumented in this encounter Care Teams Value Analysis Coordinator Relationship Specialty Start Date End Date Shonda Sánchez NP [address] [place] [address] PCP - General 03/14/21 01/31/22 Juma Herrera MD [address] [facility] [address] 12/08/18 documented as of this encounter
--- OUTSIDE RECORDS SUMMARY | 2024-04-22 23:48 | XMS_ITS | Encounter Summary ---
Author Organization [facility] Address [address] [place] [address] Care Team Providers Care Fur Scraper Name Role Phone Juma Herrera MD Unavailable Shonda Sánchez NP Primary Care Provider [phone] Reason for Referral * Radiology Services (Routine/Next Available) - Authorization Not Required Specialty Diagnoses / Procedures [facility] Referred To Contact Diagnoses Chronic right shoulder pain Procedures XR SHOULDER RIGHT 2 OR MORE VIEWS Jun Balbuena MD [address] [place] [phone] [facility] Referral ID Status Reason Start Date Expiration Date Visits Requested Visits Authorized [id number] Authorization Not Required 09/05/2021 1 1 Encounter Details Date Type Department Care Team (Late st Contact Info) Description 09/05/2021 Orders Only [facility] Sports Medicine Program - [place] [address] [place] [address] Jun Balbuena MD [address] [place] [address] Chronic right shoulder pain (Primary Dx) [...] [facility] Neurology - [address] [address] Kj Gloria MD PhD 1 [facility] 2 [place] [phone] 04/30/2024 9:30 EDT Office Visit [facility] - [facility] Interventional Pain [address] [facility] [place] [address] Catalino Garrett MD 62 [facility] [address] [place] [address] 09/18/2024 11:00 EST Office Visit [facility] Bariatric Surgery - [place] [address] [place] [address] Allen Thompson PA-C [address] [place], [place] [address], Level 5 [place] [phone] documented as of this encounter Results * XR SHOULDER RIGHT 2 OR MORE VIEWS (09/12/2021 14:33 EST) Anatomical Region Laterality Modality Right Computed Radiogr aphy 09/12/2021 16:5 1 EST Impressions 09/12/2021 16:51 EST FINDINGS / IMPRESSION: * ??Mild AC joint degenerative changes. * ??No significant glenohumeral osteophyte formation. * ??Normal mineralization without fracture. Narrative 09/12/2021 16:51 EST EXAM/TECHNIQUE: 09/12/2021 2:15 PM ??XR SHOULDER RIGHT 2 OR MORE VIEWS 3 views ?? HISTORY: ??right shoulder pain Procedure Note Ever Willson MD - 09/12/2021 EXAM/TECHNIQUE: 09/12/2021 2:15 PM XR SHOULDER RIGHT 2 OR MORE VIEWS 3views HISTORY: right shoulder pain IMPRESSION FINDINGS / IMPRESSION: * Mild AC joint degenerative changes. * No significant glenohumeral osteophyte formation. * Normal mineralization without fracture. Jun Balbuena MD IMG DIAGNOSTIC PARMINDER GING ORDERABLES documented in this encounter Visit Diagnoses Diagnosis Chronic right shoulder pain- Primary Pain in joint, shoulder region Chronic right shoulder pain Pain in joint, shoulder region documented in this encounter Care Teams Fur Scraper Relationship Specialty Start Date End Date Shonda Sánchez NP [address] [place] [address] [address] [place] [address] PCP - General 03/14/21 01/31/22 Juma Herrera MD [address] [facility] [place] [phone] 12/08/18 documented as of this encounter
--- OUTSIDE RECORDS SUMMARY | 2024-04-22 23:48 | XMS_ITS | Encounter Summary ---
Author Organization [facility] Address [address] [place] [address] Care Team Providers Care Gambling Dealer Name Role Phone Juma Herrera MD Unavailable Shonda Sánchez ENGINE REPAIR SUPERVISOR Primary Care Provider [phone] Encounter Details Date Type Department Care Team (Latest Contact Info) Description 03/20/2021 7:58 EDT - 03/20/2021 23:59 EDT Hospital Encounter [facility] Xray [address] [place], [place] [phone] Knee pain Discharge Disposition: Home or Self Care [...] Info) Description 04/27/2024 14:30 EDT Telemedicine [facility] Neurology - [address] [phone] Kj Gloria MD PhD 1 [facility], Level 2 [place] [phone] 04/30/2024 9:30 EDT Office Visit [facility] Interventional Pain [address] [place] [address] Catalino Garrett MD [address] [facility] [address] [place] [address] 09/18/2024 11:00 EST Office Visit [facility] Bariatric Surgery - [place] [address] [place] [address] Allen Thompson PA-C [address] [place] [address], Level [address] [place] [address] documented as of this encounter Procedures Procedure Name Priority Date/Time Associated Diagnosis Comments PAIN CLINIC [place] PROCEDURE Routine 03/20/2021 8:57 EDT Knee pain documented in this encounter Results * PAIN CLINIC FL PROCEDURE (03/20/2021 8:57 EDT) Narrative 03/20/2021 8:57 EDT This is a non-reportable exam. Catalino Garrett MD IMG OTHER IMAGING OR DERABLES documented in this encounter Visit Diagnoses Diagnosis Knee pain Pain in joint, lower leg documented in this encounter Care Teams Gambling Dealer Relationship Specialty Start Date End Date Shonda Sánchez NP [address] [place] [address] [address] [place] [address] PCP - General 03/14/21 01/31/22 Juma Herrera MD [address] [facility] [place] [address] 12/08/18 documented as of this encounter
--- OUTSIDE RECORDS SUMMARY | 2024-04-22 23:48 | XMS_ITS | Encounter Summary ---
Author Organization [facility] Address [address] [place] [address] Care Team Providers Care Pad Machine Offbearer Name Role Phone Juma Herrera MD Unavailable Juma Herrera MD Primary Care Provider [phone] Reason for Visit * Reason Onset Date Comments Medication Management 03/09/2021 Encounter Details Date Type Department Care Team (Late st Contact Info) Description 03/09/2021 Telephone [facility] Neurology - [place] [address] [place] [id number] Kj Gloria MD PhD 1 [facility] 2 [place] [address] Medication Management Social History Tobacco Use Types Packs/Day Years [...] encounter Miscellaneous Notes * Telephone Encounter - Milena Mccarthy, ALEXANDER - 03/09/2021 1543 EDT PA has been approved Quantity Limit case denied- 1 dose for 28 days When the pharmacy runs the Rx through for 1 dose every 30 days, it is approved Redetermination case filed to approve 1 dose for every 28 days since this is the way the medicationis prescribed and the way it was approved for use by the FDA. [id number]- appeal to pharmacist; decision within 72 hours. * Telephone Encounter - Shane Benitez - 03/09/2021 0824 [...] Contact Info) Description 04/27/2024 14:30 EDT Telemedicine [facility] Neurology - S [address] [phone] Kj Gloria MD PhD 1 [facility], Level 2 [place] [phone] 04/30/2024 9:30 EDT Office Visit [facility] Interventional Pain [address] [place], [place] [phone] Catalino Garrett MD [address] [place] [address] 09/18/2024 11:00 EST Office Visit [facility] Bariatric Surgery - [place] [address] [place], [place] [phone] Allen Thompson PA-C 111 [facility] 5 [place] [phone] documented as of this encounter Visit Diagnoses Not on filedocumented in this encounter Care Teams Pad Machine Offbearer Relationship Specialty Start Date End Date Juma Herrera MD [address] [phone] PCP - General 01/07/19 03/13/21 Juma Herrera MD [address] [address] 12/08/18 documented as of this encounter
--- OUTSIDE RECORDS SUMMARY | 2024-04-22 23:48 | XMS_ITS | Encounter Summary ---
Author Organization [facility] Address [address] [place] [address] Care Team Providers Care Insulation Supervisor Name Role Phone Juma Herrera MD Unavailable Shonda Sánchez NP Primary Care Provider [phone] Reason for Visit * Reason Comments Knee Pain * Office Procedure (Routine) - Specialty Report Received Specialty Diagnoses / Procedures Referred By Wili mireles Referred To Contact Pain Medicine Diagnoses Pain in right knee Unilateral post-traumatic osteoarthritis, right knee R knee injection with monovisc (hyaluronic acid) Procedures CA ARTHROCENTESIS ASPIR&/INJ MAJOR JT/BURSA W/O US CA MONOVISC INJ PER DOSE PROCEDURE SHORT [facility] [address] [place] [address] Catalino Garrett MD [address] [facility] [address] [place] [phone] Referral ID Status Reason Start Date Expiration Date V isits Requested Visits Authorized [id number] Specialty Report Received 1 1 Encounter Details Date Type Department Care Team (Latest Contact Info) Description 03/20/2021 8:00 EDT Procedure visit [facility] Interventional Pain [address] [place] [address] Catalino Garrett MD 62 [facility] [address] [place] [phone] Chronic pain of right knee (Primary Dx); DDD (degenerative disc disease), cervical; Sacroiliitis ([facility]) Social History Tobacco Use Types Packs/Day Years [...] 7:46 EDT documented as of this encounter Last [...] this encounter Patient Instructions * Patient Instructions* Aiyana Vasques RN - 03/20/2021 8:00 EDT [facility] [address] [address] Patient Instructions You have had your Right [...] continued numbness or weakness of the leg, pleasecall our office immediately. Instructions for follow-up If you have any questions about your block, please call Patient Education Topic: Method: Handout and Verbal Taught to: Patient Barriers: None Outcomes: independent and verbalized understanding ALEXANDER Bronson documented in this encounter Progress Notes * Kizzy Collazo MA - 03/20/2021 0800 EDT [facility] Rooming Note Does patient have a Health Program Specialist? yes Is patient NPO? (Solids since midnight [...] vaccination in the 2 weeks? no Other: * Catalino Garrett MD - 03/20/2021 0800 EDT Patient Name: Tia Rooney : 1975 Date of Service: 03/20/2021 Natural [employer] Basis Trader: Gerry MEHTA Procedure: Therapeutic intra-articular R knee [...] Position: Sitting, BP Cuff Sizes: Adult,long) Pulse 84 Temp 35.7 ??C (96.2 ??F) [...] something falling on shoulder a few weeks ago. More anterior than normal neck pain. Got x-rays that were unconcerning. If regularly scheduled YSABEL does not improved, will evaluate shoulder and clavical PROCEDURE Written informed consent was obtained after discussing the risks and benefits of intraarticular knee injection. The patient was placed supine on the fluoroscopy table and the area overlying the rightknee was prepped with chlorhexadine and draped in a sterile fashion. The joint was identifyied by flouroscopy and the soft tissue was anesthetized with 2% lidocaine. A 22 guage 3.5 inch spinal needlewas inserted under fluoroscopic guidance, by a slightly oblique approach, uIsovue 200 contrast was injected under live flouroscopy revealing dye spread throughout the joint capsule. There was no intravascular uptake. After negative aspiration, the joint was injected with entire preperation of monovisc. The needle was then flushed and removed. There were no paresthesias and aspiration was negativeat all times. The patient tolerated the procedure well and there were no apparent complications. Written and verbal discharge instructions were reviewed with the patient prior to discharge. Gerry MEHTA * Aiyana Vasques RN - 03/20/2021 0800 EDT [...] by the entire procedural team was completed. 0828 documented in this encounter Plan of Treatment Upcoming Encounters Date Type Department Care Team (Late st Contact Info) Description 04/27/2024 14:30 EDT Telemedicine [facility] Neurology - [address] [phone] Kj Gloria MD PhD [address] [place] [address], Level [address] [place] [phone] 04/30/2024 9:30 EDT Office Visit [facility] Interventional Pain [address] [place], [place] [phone] Catalino Garrett MD [address] [place] [address] 09/18/2024 11:00 EST Office Visit [facility] Bariatric Surgery - [place] [address] [place], [place] [phone] Allen Thompson, PA-C 111 [facility], Level [address] [place] [address] documented as of this encounter Visit Diagnoses Diagnosis Chronic pain of right knee- Primary DDD (degenerative disc disease), cervical Degeneration of cervical intervertebral disc Sacroiliitis (HCC-CMS) Sacroiliitis, not elsewhere classified documented in this encounter Administered Medications Inactive Administered Medications - up to 3 most recent administrations Medication Order MAR Action Action Date Dose Rate Site hyaluronate sodium, stabilized (MONOVISC) syringe 88 mg 88 mg, intra-articular, Once (Without Time Specified), 1 dose, Starting on Sat03/20/21 at 0848, Until Sat03/20/21 at 0855, Routine Given by Other 03/20/2021 8:55 EDT 88 mg Iohexol (OMNIPAQUE 180) injection 8 mL 8 mL, intra-articular, NOW X1, 1 dose, On Sat03/20/21 at 0915, Routine Given by Other 03/20/2021 8:55 EDT 8 mL documented in this encounter Historical Medications * This list may reflect changes made after this encounter. Medication Sig Dispensed Refills Start Date End Date multivitamins (THERAGRAN) Take 5 mL by mouth daily. added in this encounter Care Teams Insulation Supervisor Relationship Specialty Start Date End Date Shonda Sánchez NP [address] [place], [place] [address] [address] [place] [phone] PCP - General 03/14/21 01/31/22 Juma Herrera MD [address] [place] [address] 12/08/18 documented as of this encounter
--- OUTSIDE RECORDS SUMMARY | 2024-04-22 23:48 | XMS_ITS | Encounter Summary ---
Author Organization [facility] Address [address] [place] [address] Care Team Providers Care Cafeteria Manager Name Role Phone Juma Herrera MD Unavailable Shonda Sánchez ZOO KEEPER Primary Care Provider [phone] Encounter Details Date Type Department Care Team (Late st Contact Info) Description 04/05/2021 Specialty Pharmacy [facility] - [facility] [address] [place], [place] [phone] Yee Rodriguez, [facility] [address] [facility] [address] [place] [address] Social History Tobacco Use Types [...] as of this encounter Progress Notes * Charlotte Bhatti RPH - 04/05/2021 0922 EDT Spoke with patient to follow-up after her first Aimovig injection (on 03/24). She said it went well,she was able to use the pen successfully, and has not experienced any side effects. She has only had 3 migraines since starting Aimovig. She is aware of her appointment with Dr. Gloria in June, and I will follow-up with the notes at that time to see how things are going. Charlotte Navas, PharmD Ambulatory Pharmacist Clinician [facility] Specialty Pharmacy 04/07/2021 documented in this encounter Plan of Treatment Upcoming Encounters Date Type Department Care Team (Late st Contact Info) Description 04/27/2024 14:30 EDT Telemedicine [facility] Neurology - [address] [place] [address] [place], [place] [phone] Kj Gloria MD PhD 1 [facility], Level 2 [place] [phone] 04/30/2024 9:30 EDT Office Visit [facility] Interventional Pain [address] [place] [address] Catalino Garrett MD 62 [facility] [address] [place] [phone] 09/18/2024 11:00 EST Office Visit [facility] Bariatric Surgery - [place] [address] [place] [address] Allen Thompson PA-C 111 [facility], Level [address] [place] [address] documented as of this encounter Visit Diagnoses Not on filedocumented in this encounter Care Teams Cafeteria Manager Relationship Specialty Start Date End Date Shonda Sánchez NP [address] [place] [address] [address] [place] [phone] PCP - General 03/14/21 01/31/22 Juma Herrera MD [address] [facility] [place] [address] 12/08/18 documented as of this encounter
--- OUTSIDE RECORDS SUMMARY | 2024-04-22 23:48 | XMS_ITS | Encounter Summary ---
Author Organization [facility] Address [address] [place] [address] Care Team Providers Care Food Preparation Worker Name Role Phone Juma Herrera MD Unavailable Shonda Sánchez ELECTRICAL AND RADIO MECHANIC Primary Care Provider [phone] Reason for Visit * Reason Onset Date Comments Appointment Related 09/22/2021 Encounter Details Date Type Department Care Team (Late st Contact Info) Description 09/22/2021 Telephone [facility] Interventional Pain 62 [place] [address] Catalino Garrett MD 62 [facility] [address] [place] [address] Appointment Related Social History Tobacco [...] encounter Miscellaneous Notes * Telephone Encounter - Fang Collazo - 10/04/2021 1320 EST Called patient and scheduled next injection 01/09/22 at 8:[address] Garrett Reminded patient of the following items: -Patient must have a mechanic driver -Patient needs to arrive 45 minutes ahead of procedural start time -Patient must be infection free and off antibiotics for 14 days prior to appointment -Patient should NOT have vaccines 2 weeks before or after procedures that involve steroids -Procedural Safety Medications and Fasting Instructions as applicable Directions and clinic phone number were provided to patient as needed. * Telephone Encounter - Shantelle Gautam RN - 09/25/2021 [...] to 2014 L5-S1 decompression and fusion (2006) 06/22/2021: Plan per Dr Garrett's office visit note of 06/22/2021: Her YSABEL is somewhat effective forposterior neck pain, but I don't have a [...] therapy in the past but it was notbeneficial. Stretches entire body everyday including her neck [...] repeat cervical epidural steroid injection at C6C7?? * Telephone Encounter - Fang Collazo - 09/22/2021 7003 EST Patient called looking to get scheduled for another neck injections. Dr. Garrett's notes at her last follow up 06/22/21 don't seem to indicated any more injections are recommended. Please advise documented in this encounter Plan of Treatment Upcoming Encounters Date Type Department Care Team (Late st Contact Info) Description 04/27/2024 14:30 EDT Telemedicine [facility] Neurology - [address] [id number] Kj Gloria MD PhD 1 [facility], Level 2 [place] [phone] 04/30/2024 9:30 EDT Office Visit [facility] Interventional Pain [address] [place] [address] Catalino Garrett MD [address] [place] [address] 09/18/2024 11:00 EST Office Visit [facility] Bariatric Surgery [place] [address] [place], [place] [address] Allen Thompson PA-C 111 [facility], Level [address] [place] [phone] documented as of this encounter Visit Diagnoses Not on filedocumented in this encounter Care Teams Food Preparation Worker Relationship Specialty Start Date End Date Shonda Sánchez NP [address] [facility] [address] [place] [phone] PCP - General 03/14/21 01/31/22 Juma Herrera MD [address] [facility] [place] [address] 12/08/18 documented as of this encounter
--- OUTSIDE RECORDS SUMMARY | 2024-04-22 23:48 | XMS_ITS | Encounter Summary ---
Author Organization [facility] Address [address] [place] [address] Care Team Providers Care Chicken Handler Name Role Phone Juma Herrera MD Unavailable Shonda Sánchez SCIENTIFIC EDITOR Primary Care Provider [phone] Encounter Details Date Type Department Care Team (Latest Contact Info) Description 05/17/2021 7:56 EDT - 05/17/2021 23:59 EDT Hospital Encounter [facility] Xray [address] [place], [place] [phone] Discharge Disposition: Home or Self Care Social [...] 8:56 EDT documented as of this encounter Functional [...] Info) Description 04/27/2024 14:30 EDT Telemedicine [facility] Neurology [address] [id number] Kj Gloria MD PhD 1 [facility], Level 2 [place] [phone] 04/30/2024 9:30 EDT Office Visit [facility] Interventional Pain [address] [place] [address] Catalino Garrett MD 62 [facility] [address] [place] [address] 09/18/2024 11:00 EST Office Visit [facility] Bariatric Surgery - [place] [address] [place] [address] Allen Thompson PA-C 111 [facility], Level 5 [place] [address] documented as of this encounter Procedures Procedure Name Priority Date/Time Associated Diagnosis Comments PAIN CLINIC FL SACROILIAC JOINT INJECTION Routine 05/17/2021 10:02 EDT documented in this encounter Results * PAIN CLINIC FL SACROILIAC JOINT INJECTION (05/17/2021 10:02 EDT) Narrative 05/17/2021 10:02 EDT This is a non-reportable exam. Catalino Garrett MD IMG OTHER IMAGING OR DERABLES documented in this encounter Visit Diagnoses Not on filedocumented in this encounter Care Teams Chicken Handler Relationship Specialty Start Date End Date Shonda Sánchez NP [address] [place] [address] [address] [place] [phone] PCP - General 03/14/21 01/31/22 Juma Herrera MD [address] [facility] [place] [address] 12/08/18 documented as of this encounter
--- OUTSIDE RECORDS SUMMARY | 2024-04-22 23:48 | XMS_ITS | Encounter Summary ---
Author Organization [facility] Address [address] [place] [address] Care Team Providers Care Ur Coordinator Name Role Phone Juma Herrera MD Unavailable Shonda Sánchez NP Primary Care Provider [phone] Reason for Referral * Radiology Services (Routine/Next Available) - Authorization Not Required Specialty Diagnoses / Procedures Referred By Contac t Referred To Contact Diagnoses Chronic right shoulder pain Procedures XR SHOULDER RIGHT 2 OR MORE VIEWS Jun Balbuena MD [address] [place] [address] [facility] Referral ID Status Reason Start Date Expiration Date Visits Requested Visits Authorized [id number] Authorization Not Required 09/05/2021 1 1 Reason for Visit * Radiology Services (Routine/Next Available) - Authorization Not Required Specialty Diagnoses / Procedures Referred By Contac t Referred To Contact Diagnoses Chronic right shoulder pain Procedures XR SHOULDER RIGHT 2 OR MORE VIEWS Jun Balbuena MD [address] [place] [address] [facility] Referral ID Status Reason Start Date Expiration Date Visits Requested Visits Authorized [id number] Authorization Not Required 09/05/2021 1 1 Encounter Details Date Type Department Care Team (Latest Contact Info) Description 09/12/2021 14:15 EST - 09/12/2021 23:59 EST Hospital Encounter [facility] Xray [address] [place] [address] Chronic right shoulder pain Discharge Disposition: Home [...] Info) Description 04/27/2024 14:30 EDT Telemedicine [facility] Neurology - S [place] 1 [place], [place] [phone] Kj Gloria MD PhD 1 [facility], Level [address] [place] [phone] 04/30/2024 9:30 EDT Office Visit [facility] Interventional Pain [address] [place], [place] [phone] Catalino Garrett MD [address] [facility] [address] [place] [address] 09/18/2024 11:00 EST Office Visit [facility] Bariatric Surgery - [address] [phone] Allen Thompson PA-C 111 [facility], Level [address] [place] [phone] documented as of this encounter Procedures Procedure Name Priority Date/Time Associated Diagnosis Comments XR SHOULDER RIGHT 2 OR MORE VIEWS Routine 09/12/2021 14:33 EST Chronic right shoulder pain documented in this encounter Results * XR SHOULDER RIGHT [...] region documented in this encounter Care Teams Ur Coordinator Relationship Specialty Start Date End Date Shonda Sánchez NP [address] [place] [address] [address] [place] [address] PCP - General 03/14/21 01/31/22 Juma Herrera MD [address] [facility] [place] [address] 12/08/18 documented as of this encounter
--- OUTSIDE RECORDS SUMMARY | 2024-04-22 23:48 | XMS_ITS | Encounter Summary ---
Author Organization [facility] Address [address] [place] [address] Care Team Providers Care Wafer Cutter Name Role Phone Juma Herrera MD Unavailable Shonda Sánchez SILVERWARE ASSEMBLER Primary Care Provider [phone] Encounter Details Date Type Department Care Team (Latest Contact Info) Description 03/20/2021 Travel Social History Tobacco Use [...] Contact Info) Description 04/27/2024 14:30 EDT Telemedicine [facility] Neurology - [facility] 1 [place], [place] [address] Kj Gloria MD PhD 1 [facility] Level [address] [place] [phone] 04/30/2024 9:30 EDT Office Visit [facility] Interventional Pain [address] [place] [address] Catalino Garrett MD 62 [facility] [address] [place] [address] 09/18/2024 11:00 EST Office Visit [facility] Bariatric Surgery [facility] [address] [place], [place] [phone] Allen Thompson PA-C 111 [facility], [address] [place] [address] documented as of this encounter Visit Diagnoses Not on filedocumented in this encounter Care Teams Wafer Cutter Relationship Specialty Start Date End Date Shonda Sánchez NP [address] [facility] [address] [place] [phone] PCP - General 03/14/21 01/31/22 Juma Herrera MD [address] [facility] [place] [address] 12/08/18 documented as of this encounter
--- OUTSIDE RECORDS SUMMARY | 2024-04-22 23:48 | XMS_ITS | Encounter Summary ---
Author Organization [facility] Address [address] [place] [address] Care Team Providers Care Customer Experience Associate Name Role Phone Juma Herrera MD Unavailable Shonda Sánchez NP Primary Care Provider [phone] Reason for Visit * Reason Comments Neck Pain Headache Back Pain * Office Procedure (Routine) - Specialty Report Received Specialty Diagnoses / Procedures Referred By Wili mireles Referred To Contact Pain Medicine Diagnoses Other cervical disc degeneration, unspecified cervical region Sacroiliitis, not elsewhere classified ([facility]-CMS) c6 c7 see Procedures NH NJX DX/THER SBST INTRLMNR CRV/THRC W/IMG GDN PROCEDURE MEDIUM [facility] [address] [facility] [place] [address] Catalino Garrett MD [address] [place] [id number] Referral ID Status Reason Start Date Expiration Date V isits Requested Visits Authorized [id number] Specialty Report Received 1 1 Encounter Details Date Type Department Care Team (Latest Contact Info) Description 04/05/2021 10:15 EDT Procedure visit [facility] Interventional Pain [address] [place] [address] Catalino Garrett MD 62 [facility] [address] [place] [address] DDD (degenerative disc disease), cervical (Primary Dx); Sacroiliitis (HCC-CMS); Chronic pain of right knee Social History Tobacco Use Types Packs/Day Years [...] 10:03 EDT documented as of this encounter Last [...] * Patient Instructions* Kaila Lovell RN - 04/05/2021 10:15 EDT [facility] [address] [place], [place] [address] Patient Instructions You have had your cervical [...] numbness or weakness of the arms or changes in your bladder or bowel [...] documented in this encounter Progress Notes * Brianna Zazueta MA - 04/05/2021 1015 EDT [facility] Rooming Note Does patient have a Associate Director Data & Analytics? yes Is patient NPO? (Solids since midnight [...] vaccination in the 2 weeks? No Other: * Catalino Garrett MD - 04/05/2021 1015 EDT Patient Name: Tia Rooney : 1975 Date of Service: 04/05/2021 Immunopathologist: Gerry MEHTA Photo Engraver: none Procedure: Therapeutic cervical epidural steroid injections [...] injection. After that I'm going to see herin follow up, review areas we have worked [...] patient prior to discharge. Gerry MEHTA * Kaila Lovell RN - 04/05/2021 1015 EDT ATTENTION: This Checklist should be reviewed with the patient, provider, nurse/MA, and anesthesiology tech in the room prior to local [...] Info) Description 04/27/2024 14:30 EDT Telemedicine [facility] Neurology - [address] [address] Kj Gloria MD PhD [address] [place] [address] Level 2 [place] [phone] 04/30/2024 9:30 EDT Office Visit [facility] Interventional Pain 62 [facility] [place], [place] [phone] Catalino Garrett MD 62 [facility] [address] [place] [address] 09/18/2024 11:00 EST Office Visit [facility] Bariatric Surgery - [place] [address] [place] [address] Allen Thompson PA-C 111 [facility], [address] 5 [place] [phone] documented as of this encounter Visit Diagnoses Diagnosis DDD (degenerative disc disease), cervical- Primary Degeneration of cervical intervertebral disc Sacroiliitis (HCC-CMS) Sacroiliitis, not elsewhere classified Chronic pain of right knee documented in this encounter Administered Medications Inactive Administered Medications - up to 3 most recent administrations Medication Order MAR Action Action Date Dose Rate Site Iohexol (OMNIPAQUE 180) injection 10 mL 10 mL, neural-axial, NOW X1, 1 dose, On Sat04/05/21 at 1115, Routine Given by Other 04/05/2021 10:57 EDT 3 mL methylPREDNISolone ACETATE (DEPO-MEDROL) injection 80 mg 80 mg, neural-axial, NOW X1, 1 dose, On Sat04/05/21 at 1115, Routine Given by Other 04/05/2021 10:58 EDT 80 mg documented in this encounter Care Teams Customer Experience Associate Relationship Specialty Start Date End Date Shonda Sánchez NP [address] [place] [address] [address] [place] [phone] PCP - General 03/14/21 01/31/22 Juma Herrear MD [address] [facility] [place] [address] 12/08/18 documented as of this encounter
--- OUTSIDE RECORDS SUMMARY | 2024-04-22 23:48 | XMS_ITS | Encounter Summary ---
Author Organization [facility] Address [address] [place] [address] Care Team Providers Care Door Technician Name Role Phone Juma Herrera MD Unavailable Shonda Sánchez JETTING MACHINE OPERATOR Primary Care Provider [phone] Reason for Visit * Reason Onset Date Comments Prior Auth, Medication 06/08/2021 Encounter Details Date Type Department Care Team (Late st Contact Info) Description 06/08/2021 Telephone [facility] Neurology - [place] [address] [place] [id number] Kj Gloria MD PhD [address] [place] [address] 2 [place] [address] Prior Auth, Medication Social History [...] Miscellaneous Notes * Telephone Encounter - Mica Jackson - 06/08/2021 1537 EDT Prior Authorization Submission Process Current PA doesn't until 09/01/21 documented in this encounter Plan of Treatment Upcoming Encounters Date Type Department Care Team (Late st Contact Info) Description 04/27/2024 14:30 EDT Telemedicine [facility] Neurology - [address] [id number] Kj Gloria MD PhD 1 [facility], [address] [place] [phone] 04/30/2024 9:[address] [facility] Interventional Pain 62 [facility] [place], [place] [phone] Catalino Garrett MD 62 [facility] [address] [place] [address] 09/18/2024 11:00 EST Office Visit [facility] Bariatric Surgery - [place] [address] [place] [address] Allen Thompson PA-C 111 [facility], [address] 5 [place] [phone] documented as of this encounter Visit Diagnoses Not on filedocumented in this encounter Care Teams Door Technician Relationship Specialty Start Date End Date Shonda Sánchez NP [address] [facility] [address] [place] [phone] PCP - General 03/14/21 01/31/22 Juma Herrera MD [address] [place] [address] 12/08/18 documented as of this encounter
--- OUTSIDE RECORDS SUMMARY | 2024-04-22 23:48 | XMS_ITS | Encounter Summary ---
Author Organization [facility] Address [address] [place] [address] Care Team Providers Care Machine Stripper Cutter Name Role Phone Juma Herrera MD Unavailable Shonda Sánchez POLISHER AND BUFFER Primary Care Provider [phone] Reason for Visit * Reason Onset Date Comments Appointment Related 06/21/2021 Encounter Details Date Type Department Care Team (Late st Contact Info) Description 06/21/2021 Telephone [facility] Interventional Pain 62 [facility] [place] [address] Catalino Garrett MD [address] [facility] [address] [place] [address] Appointment Related Social History Tobacco [...] * Telephone Encounter - Fang Collazo - 06/21/2021 4576 EDT Called patient to remind her of her 4:30 Follow Up tomorrow with Dr. Garrett and to please arrive at 3:45 documented in this encounter Plan of Treatment Upcoming Encounters Date Type Department Care Team (Late st Contact Info) Description 04/27/2024 14:30 EDT Telemedicine [facility] Neurology - [address] [phone] Kj Gloria MD PhD 1 [facility] [address] 2 [place] [phone] 04/30/2024 9:30 EDT Office Visit [facility] Interventional Pain 62 [facility] [place] [address] Catalino Garrett MD 62 [facility] [address] [place] [address] 09/18/2024 11:00 EST Office Visit [facility] Bariatric Surgery - [place] [address] [place], [place] [address] Allen Thompson PA-C 111 [facility], [address] 5 [place] [phone] documented as of this encounter Visit Diagnoses Not on filedocumented in this encounter Care Teams Machine Stripper Cutter Relationship Specialty Start Date End Date Shonda Sánchez NP [address] [place] [address] [address] [place] [phone] PCP - General 03/14/21 01/31/22 Juma Herrera MD [address] [facility] [place] [address] 12/08/18 documented as of this encounter
--- OUTSIDE RECORDS SUMMARY | 2024-04-22 23:48 | XMS_ITS | Encounter Summary ---
Author Organization [facility] Address [address] [place] [address] Care Team Providers Care Body Bumper Name Role Phone Juma Herrera MD Unavailable Shonda Sánchez SEO ANALYST Primary Care Provider [phone] Encounter Details Date Type Department Care Team (Latest Contact Info) Description 04/05/2021 7:38 EDT - 04/05/2021 23:59 EDT Hospital Encounter [facility] Xray [address] [place], [place] [phone] Discharge Disposition: Home or Self Care Social [...] Info) Description 04/27/2024 14:30 EDT Telemedicine [facility] Neurology [address] [address] Kj Gloria MD PhD 1 [facility], Level 2 [place] [phone] 04/30/2024 9:30 EDT Office Visit [facility] Interventional Pain [address] [place] [address] Catalino Garrett MD 62 [facility] [address] [place] [address] 09/18/2024 11:00 EST Office Visit [facility] Bariatric Surgery - [place] [address] [place] [address] Allen Thompson PA-C 111 [facility], [address] [place] [address] documented as of this encounter Procedures Procedure Name Priority Date/Time Associated Diagnosis Comments [facility] [place] CERVICAL INJECTION Routine 04/05/2021 11:04 EDT documented in this encounter Results * PAIN CLINIC [place] CERVICAL INJECTION (04/05/2021 11:04 EDT) Narrative 04/05/2021 11:05 EDT This is a non-reportable exam. Catalino Garrett MD IMG OTHER IMAGING OR DERABLES documented in this encounter Visit Diagnoses Not on filedocumented in this encounter Care Teams Body Bumper Relationship Specialty Start Date End Date Shonda Sánchez NP [address] [place] [address] [address] [place] [address] PCP - General 03/14/21 01/31/22 Juma Herrera MD [address] [facility] [place] [address] 12/08/18 documented as of this encounter
--- OUTSIDE RECORDS SUMMARY | 2024-04-22 23:48 | XMS_ITS | Encounter Summary ---
Author Organization [facility] Address [address] [place] [address] Care Team Providers Care Fiber Optic Central Office Installer Name Role Phone Juma Herrera MD Unavailable Shonda Sánchez APPLICATION SOFTWARE ENGINEER Primary Care Provider [phone] Reason for Visit * Reason Onset Date Comments Appointment Related 04/28/2021 Encounter Details Date Type Department Care Team (Late st Contact Info) Description 04/28/2021 Telephone [facility] Interventional Pain 62 [facility] [place] [address] Catalino Garrett MD [address] [facility] [address] [place] [address] Appointment Related Social History Tobacco [...] SIJ injectionson 04/28/2021. Forwarded to prior auth * Telephone Encounter - Molly Crawford - 04/28/2021 0934 EDT Called pt to discuss ABN for SIJ injection. She wants to know if Dr Garrett still wants to do it before doing a follow up to discuss other options. Pt reported that sometimes end of January/March she went to the ED in [facility] for a swollen collarbone. She stated [...] Contact Info) Description 04/27/2024 14:30 EDT Telemedicine [facility] Neurology - [address] [place] [address] [place], [place] [address] Kj Gloria MD PhD 1 [facility], Level 2 [place] [phone] 04/30/2024 9:30 EDT Office Visit [facility] Interventional Pain 62 [facility] [place], [place] [phone] Catalino Garrett MD 62 [facility] [address] [place] [address] 09/18/2024 11:00 EST Office Visit [facility] Bariatric Surgery [facility] [address] [place], [place] [address] Allen Thompson, PA-C 111 [facility], [address] [place] [phone] documented as of this encounter Visit Diagnoses Not on filedocumented in this encounter Care Teams Fiber Optic Central Office Installer Relationship Specialty Start Date End Date Shonda Sánchez NP [address] [facility] [address] [place] [phone] PCP - General 03/14/21 01/31/22 Juma Herrera MD [address] [facility] [place] [address] 12/08/18 documented as of this encounter
--- OUTSIDE RECORDS SUMMARY | 2024-04-22 23:48 | XMS_ITS | Encounter Summary ---
Author Organization [facility] Address [address] [place] [address] Care Team Providers Care Occupational Analyst Name Role Phone Juma Herrera MD Unavailable Shonda Sánchez PAYMENT SPECIALIST Primary Care Provider [phone] Reason for Visit * Reason Comments Neck Pain Knee Pain right side Back Pain Leg Pain right side Encounter Details Date Type Department Care Team (Latest Contact Info) Description 06/22/2021 16:[address] [facility] Interventional Pain 62 [facility] [place] [address] Catalino Garrett MD [address] [facility] [address] [place] [address] Sacroiliitis, not elsewhere classified (HCC-CMS) (Primary Dx); Disc disease, degenerative, cervical Social History Tobacco Use Types Packs/Day Years [...] 16:01 EDT documented as of this encounter Last [...] Progress Notes * Catalino Garrett MD - 06/22/2021 1630 EDT [...] Breathing problem ??? Depression ??? Diabetes mellitus (HCC) ??? Drug abuse (HCC-CMS) (HCC) ??? Environmental allergies ??? Eye problem ??? Generalized headaches ??? Headache(784.0) ??? Heart disease ??? History of substance abuse (HCC-CMS) (HCC) ??? Hypertension ??? Kidney disease ??? Mental disorder ??? Nervousness(799.21) ??? Numbness ??? Personality disorder (HCC-CMS) (HCC) ??? Plantar fasciitis ??? PTSD (post-traumatic stress [...] and Family: Not on file ??? Attends Gnosticism Services: Not on file ??? Active Member [...] Assessment/Plan: 1. Sacroiliitis, not elsewhere classified (HCC-CMS) ([facility]) 2. Disc disease, degenerative, cervical SIJ inj and YSABEL have been helpful but SIJ injection in particular has waning efficacy. She has been hesitant to be re-evaluated by surgery, but I suggested she do this to make sure no operative strategies are available. Her YSABEL is somewhat effective for posterior neck pain, but I don't have a good explanation for heranterior clavicular neck and shoulder pain. I would not be able to inject steroids in any more bodyparts anyway, so I suggest PT for this [...] Telemedicine [facility] Neurology - [address] [phone] Kj Gloria MD PhD 1 [facility] Level 2 [place] [phone] 04/30/2024 9:[address] [facility] Interventional Pain 62 [place], [place] [phone] Catalino Garrett MD 62 [facility] [address] [place] [address] 09/18/2024 11:00 EST Office Visit [facility] Bariatric Surgery - [place] [address] [place], [place] [address] Allen Thompson PA-C 111 [facility], Level 5 [place] [phone] documented as of this encounter Visit Diagnoses Diagnosis Sacroiliitis, not elsewhere classified ([facility]-CMS)- Primary Sacroiliitis, not elsewhere classified Disc disease, degenerative, cervical Degeneration of cervical intervertebral disc documented in this encounter Care Teams Occupational Analyst Relationship Specialty Start Date End Date Shonda Sánchez NP [address] [place] [address] PCP - General 03/14/21 01/31/22 Juma Herrera MD [address] [place] [address] 12/08/18 documented as of this encounter
--- OUTSIDE RECORDS SUMMARY | 2024-04-22 23:48 | XMS_ITS | Encounter Summary ---
Author Organization [facility] Address [address] [place] [address] Care Team Providers Care Member Of The Legislative Assembly Name Role Phone Juma Herrera MD Unavailable Shonda Sánchez ROTOR PLATE WASHER Primary Care Provider [phone] Encounter Details Date Type Department Care Team (Latest Contact Info) Description 05/17/2021 Travel Social History Tobacco Use [...] Info) Description 04/27/2024 14:30 EDT Telemedicine [facility] Neurology - [facility] 1 [place], [place] [address] Kj Gloria MD PhD 1 [facility] Level [address] [place] [phone] 04/30/2024 9:30 EDT Office Visit [facility] Interventional Pain 62 [place] [address] Catalino Garrett MD 62 [facility] [address] [place] [address] 09/18/2024 11:00 EST Office Visit [facility] Bariatric Surgery [facility] [address] [place], [place] [phone] Allen Thompson PA-C 111 [facility], Level [address] [place] [address] documented as of this encounter Visit Diagnoses Not on filedocumented in this encounter Care Teams Member Of The Legislative Assembly Relationship Specialty Start Date End Date Shonda Sánchez NP [address] [facility] [address] [place] [phone] PCP - General 03/14/21 01/31/22 Juma Herrera MD [address] [facility] [place] [phone] 12/08/18 documented as of this encounter
--- OUTSIDE RECORDS SUMMARY | 2024-04-22 23:48 | XMS_ITS | Encounter Summary ---
Author Organization [facility] Address [address] [place] [address] Care Team Providers Care Elementary Reading Tutor Name Role Phone Juma Herrera MD Unavailable Juma Herrera MD Primary Care Provider [phone] Shonda Sánchez CRM DYNAMICS DEVELOPER Primary Care Provider [phone] Encounter Details Date Type Department Care Team (Late st Contact Info) Description 03/10/2021 Specialty Pharmacy [facility] - [facility] [address] [place], [place] [phone] Yee Rodriguez, [facility] [address] [facility] [address] [place] [address] Social History Tobacco Use Types [...] Progress Notes * Charlotte Bhatti RPH - 03/10/2021 1302 EDT [facility] Neurology Clinic Medication Therapy Initiation Note Tia Rooney is a 45 y.o. female who will be starting treatment with Aimovig 70mg for chronic migraine. Planned Start Date: 03/20/21, Duration: until lack of efficacy after an adequate medication trial or unacceptable adverse effects support discontinuation. I performed a [...] regarding Aimovig 70mg and injection resources on child welfare assistant website provided to patient. She declined injection training as she lives far away, and has been using sumatriptan injections. We reviewed the autoinjector steps for administration and she will watch the videos online. Barriers to Education: None Outcomes of Education: Independent, Verbalized understanding Follow up: - Phone call: 3 weeks for follow-up - Clinic appointment: LINH SCHRADER RPH documented in this encounter Plan of Treatment Upcoming Encounters Date Type Department Care Team (Late st Contact Info) Description 04/27/2024 14:30 EDT Telemedicine [facility] Neurology - [address] [place] [address] [place], [place] [address] Kj Gloria MD PhD 1 [facility], Level 2 [place] [phone] 04/30/2024 9:[address] [facility] Interventional Pain [address] [facility] [place] [address] Catalino Garrett MD 62 [facility] [address] [place] [address] 09/18/2024 11:00 EST Office Visit [facility] Bariatric Surgery - [place] [address] [place], [place] [address] Allen Thompson PA-C [address] [place] [address], [address] [place] [address] documented as of this encounter Visit Diagnoses Not on filedocumented in this encounter Care Teams Elementary Reading Tutor Relationship Specialty Start Date End Date Juma Herrera MD [address] [place] [address] PCP - General 01/07/19 03/13/21 Shonda Sánchez NP [address] [place] [address] [address] [place] [phone] PCP - General 03/14/21 01/31/22 Juma Herrera MD [address] [place] [address] 12/08/18 documented as of this encounter
--- OUTSIDE RECORDS SUMMARY | 2024-04-22 23:48 | XMS_ITS | Encounter Summary ---
Author Organization [facility] Address [address] [place] [address] Care Team Providers Care Alkylation Operator Name Role Phone Juma Herrera MD Unavailable Shonda Sánchez NP Primary Care Provider [phone] Encounter Details Date Type Department Care Team (Late st Contact Info) Description 08/03/2021 Specialty Pharmacy [facility] - [place] [address] [place], [place] [phone] Yee Rodriguez, [facility] [address] [facility] [address] [place] [address] Social History Tobacco Use Types [...] EDT Telemedicine [facility] Neurology - [address] [address] Kj Gloria MD PhD 1 [facility] 2 [place] [phone] 04/30/2024 9:30 EDT Office Visit [facility] Interventional Pain [address] [place] [address] Catalino Garrett MD 62 [facility] [address] [place] [address] 09/18/2024 11:00 EST Office Visit [facility] Bariatric Surgery [address] [phone] Allen Thompson, PA-C 111 [facility], [address] [place] [address] documented as of this encounter Visit Diagnoses Not on filedocumented in this encounter Care Teams Alkylation Operator Relationship Specialty Start Date End Date Shonda Sánchez NP [address] [place] [address] [address] [place] [phone] PCP - General 03/14/21 01/31/22 Juma Herrera MD [address] [facility] [place] [phone] 12/08/18 documented as of this encounter
--- OUTSIDE RECORDS SUMMARY | 2024-04-22 23:48 | XMS_ITS | Encounter Summary ---
Author Organization [facility] Address [address] [place] [address] Care Team Providers Care Director Of Nurses Registry Name Role Phone Juma Herrera MD Unavailable Shonda Sánchez HIDE HOUSE SUPERVISOR Primary Care Provider [phone] Encounter Details Date Type Department Care Team (Latest Contact Info) Description 06/22/2021 Travel Social History Tobacco Use [...] Contact Info) Description 04/27/2024 14:30 EDT Telemedicine [facility] - [facility] [address] [place], [place] [address] Kj Gloria MD PhD 1 [facility] Level [address] [place] [phone] 04/30/2024 9:30 EDT Office Visit [facility] Interventional Pain [address] [place] [address] Catalino Garrett MD 62 [facility] [address] [place] [address] 09/18/2024 11:00 EST Office Visit [facility] Bariatric Surgery [facility] [address] [place], [place] [phone] Allen Thompson PA-C 111 [facility], [address] [place] [address] documented as of this encounter Visit Diagnoses Not on filedocumented in this encounter Care Teams Director Of Nurses Registry Relationship Specialty Start Date End Date Shonda Sánchez NP [address] [facility] [address] [place] [phone] PCP - General 03/14/21 01/31/22 Juma Herrera MD [address] [facility] [place] [phone] 12/08/18 documented as of this encounter
--- OUTSIDE RECORDS SUMMARY | 2024-04-22 23:48 | XMS_ITS | Encounter Summary ---
Author Organization [facility] Address [address] [place] [address] Care Team Providers Care Sports Management Intern Name Role Phone Juma Herrera MD Unavailable Shonda Sánchez BUILDING CODE ADMINISTRATOR Primary Care Provider [phone] Reason for Visit * Reason Comments Pain Encounter Details Date Type Department Care Team (Late st Contact Info) Description 07/18/2021 13:30 EST Office Visit [facility] Spine Program - [address] [address] Kj Child MD 192 [facility] [place] [address] Back pain, unspecified back location, [...] Progress Notes * Kj Child MD - 07/18/2021 1330 EST Problem: 1. Neck and right arm [...] She also has pain with some viselike painaround her brachium and then pain into the thumb index and long finger. These are symptoms that aresimilar to what she had previously at C6 from her prior to her C5-6 ACDF. She is having neck pain and arm pain for many years has been seen by massage physical therapy has seen Starr Hart and gotsubacromial injections which were helpful postural training has been helpful. She also complains of low back discomfort centralized in the back with no radiation. Objective: Tender to palpation over a prominent right sternoclavicular joint and acromioclavicular joint with no fluctuance or erythema but significant tenderness. She has tenderness to palpation along the medial border of her scapula with no adenopathy or masses. There are no supraclavicular adenopathy or masses. She does have interscalene tenderness. 5/5 deltoid internal X rotation bicep tricepwrist flexion extension finger abduction. Negative Tinel's at the wrist and elbow 5/5 EHL tib ant peroneal gastroc Quad Ham psoas. Negative straight leg raising X-ray: Full-length PA and lateral demonstrate multiple levels of loss of disc space height osteophyte formation across multiple bodies from cervical thoracic and lumbar spine. Her overall coronal andsagittal alignment is well-maintained. She does have an [...] any direct evidence of myelopathy or her radiculopathy. Discussed the options of ongoing exercise program [...] [facility] Neurology - [address] [id number] Kj Gloria MD PhD 1 [facility], Level 2 [place] [address] 04/30/2024 9:30 EDT Office Visit [facility] Interventional Pain [address] [place], [place] [phone] Catalino Garrett MD [address] [place] [address] 09/18/2024 11:00 EST Office Visit [facility] Bariatric Surgery - [place] [address] [place] [address] Allen Thompson PALizettC 111 [facility], Level 5 [place] [address] documented as of this encounter Visit Diagnoses Diagnosis Back pain, unspecified back location, unspecified back pain laterality, unspecified chronicity- Primary documented in this encounter Care Teams Sports Management Intern Relationship Specialty Start Date End Date Shonda Sánchez NP [address] [place] [address] [address] [place] [phone] PCP - General 03/14/21 01/31/22 Juma Herrera MD [address] [facility] [place] [address] 12/08/18 documented as of this encounter
--- OUTSIDE RECORDS SUMMARY | 2024-04-22 23:48 | XMS_ITS | Encounter Summary ---
Author Organization [facility] Address [address] [place] [address] Care Team Providers Care Cloth Drier Name Role Phone Juma Herrera MD Unavailable Shonda Sánchez NP Primary Care Provider [phone] Reason for Visit * Reason Comments Obesity Post op sleeve 6 yea rs Encounter Details Date Type Department Care Team (Late st Contact Info) Description 09/22/2021 10:30 EST Office Visit [facility] Bariatric Surgery [facility] [address] [place] [address] Allen Thompson, PALizettC [address] [place] [address], [facility], Level 5 [place] [address] Morbid obesity (HCC-CMS) (Primary Dx); S/P laparoscopic sleeve gastrectomy; BMI 33.0-33.9,adult Social History Tobacco Use Types Packs/Day Years [...] daily. 90 capsule 3 09/22/2021 09/21/2022 documented in this encounter Progress Notes * Lux Dumont, RD - 09/22/2021 1030 EST Nutrition Post Op Visit: Gastric Sleeve Subjective: Patient returns to clinic for post op nutritional counseling following bariatric surgery ~ 6 years ago. Questionnaire Reviewed: Yes Intolerance [...] since surgery Supplement Usage: Type Amount MVT Bunny Women's plus X 1 B12 Calcium w/Vit D X1 Vit D 2000 units X1 Other: Recent Labs: WNL, Abnormal (Low Vit D in 2020) Assessment: Adequate Meal Frequency: Yes Adequate Meal Composition: Yes Exercise Adequacy: Yes Hydration/Caffeine:2 cans regular Gingerale as she cannot tolerate diet sugar; Cup of Coffee with sweetened Malawian Vanilla Creamer or Ice coffee at work; [...] She is too busy at dinner meal as her DTR lives with her. Suggested slowing down [...] incorporates veggies with meals(Carrots, green beans, corn, cauliflower,B roccoli). She wants to take the protein shake [...] per week or maintain current wt Other: * Allen Thompson PA-C - 09/22/2021 1030 EST 09/22/2021 Tia Rooney is here in follow-up to her laparoscopic sleeve gastrectomy 6 years ago. The weight trend for the patient is: Weight at initial consult: 147.7 kg (325 lb 9.6 oz), to 97 kg (213 lb 12.8oz) [] at the last post-op visit to today's Weight : 98.9 kg (218 lb). PROBLEM LIST Patient Active Problem List Diagnosis ??? Lumbar radiculopathy ??? Os trigonum syndrome ??? Tarsal tunnel syndrome of right side ??? Idiopathic peripheral neuropathy ??? Cervicalgia ??? Morbid obesity with BMI of 45.0-49.9, adult ([facility]) ([facility]) ??? Chronic migraine without aura without [...] followed by PCP Seen and discussed with Account Resolution Analyst at this visit. Allen Thompson PA-C 09/22/2021 11:31 documented in this encounter Plan of Treatment Upcoming Encounters Date Type Department Care Team (Late st Contact Info) Description 04/27/2024 14:30 EDT Telemedicine [facility] Neurology - S [address] [id number] Kj Gloria MD PhD 1 [facility], Level 2 [place] [phone] 04/30/2024 9:30 EDT Office Visit [facility] Interventional Pain [address] [facility] [place] [address] Catalino Garrett MD [address] [facility] [address] [place] [address] 09/18/2024 11:00 EST Office Visit [facility] Bariatric Surgery - [place] [address] [place], [place] [phone] Allen Thompson PA-C 111 [facility], Level 5 [place] [phone] documented as of this encounter Visit Diagnoses Diagnosis Morbid obesity ([facility])- Primary Morbid obesity S/P laparoscopic sleeve gastrectomy Bariatric surgery status BMI 33.0-33.9,adult Body Mass Index 33.0-33.9, adult documented in this encounter Discontinued Medications Medication Sig Discontinue Reason Start Date End Da te omeprazole (PRILOSEC) 20 mg capsuleIndications:S/P laparoscopic sleeve gastrectomy,Gastroesophage al reflux disease without esophagitis Take 2 Caps by mouth daily 08/31/2015 09/22/2021 documented as of this encounter Care Teams Cloth Drier Relationship Specialty Start Date End Date Shonda Sánchez NP [address] [place] [address] [address] [place] [phone] PCP - General 03/14/21 01/31/22 Juma Herrera MD [address] [facility] [place] [phone] 12/08/18 documented as of this encounter
--- OUTSIDE RECORDS SUMMARY | 2024-04-22 23:49 | XMS_ITS | Encounter Summary ---
Author Organization [facility] Address [address] [place] [address] Care Team Providers Care Stock Mover Name Role Phone Juma Herrera MD Unavailable Juma Herrera MD Primary Care Provider [phone] Reason for Visit * Reason Comments Obesity Post op sleeve 5 yea rs 09/05/15 Encounter Details Date Type Department Care Team (Late st Contact Info) Description 09/16/2020 10:30 EST Office Visit [facility] Bariatric Surgery [facility] [address] [place] [address] Allen Thompson, PA-C [address] [place] [address], [address] 5 [place] [address] Morbid obesity (HCC-CMS) (Primary Dx); [...] kg (213 lb 12.8 oz) 09/16/2020 1035 ES T Height 172.7 cm (5' 7.99) 09/16/2020 1035 [...] as of this encounter Progress Notes * Allen Thompson PA-C - 09/16/2020 1030 EST 09/16/2020 Tia [...] Morbid obesity with BMI of 45.0-49.9, adult ([facility]) SUBJECTIVE: Emesis: No complaints of emesis [...] complications and Weight Loss: Good, some weight regainbut still down 112 pounds, she would like to lose about 20 pounds or so. Rare GERD requiring PPI. Vit D deficiency seen on labs - start 1000 units D3. PLAN: 1. Return to clinic in 1 year(s). 2. No orders of the defined types were placed in this encounter. 3. No labs needed next time. Seen and discussed with Bricklayer'S Assistant at this visit. Allen Thompson PA-C 09/16/2020 10:57 * Moira Carmen - 09/16/2020 1030 EST Nutrition Post Op Visit: Gastric Sleeve Subjective: Patient returns to clinic for post op nutritional counseling following bariatric surgery 3 ago. Questionnaire Reviewed: Yes Intolerance Episodes: no [...] then found she had gained significant weight, sobegan to make many good changes 3 weeks ago. For the past 3 weeks, she has been very mindful of hernutritional intake, consuming mostly only protein foods for B and L and snacks, and meat/potato/vegat dinner time. She also completed a 5 [...] she states her pain is too bad to add any exercise. Plan: Change intake: pair a protein and a source of fiber (fruit, vegetable, or whole grain) for each meal and snack Increase exercise: add short bursts of gentle activity several times per day (5- 10 min 2-3 times per day) Supplement Changes (add vit D) Initiate food logs Education Provided: ?? High fiber foods ?? Bariatric Plate Method ?? Exercise routine for chronic pain ?? 10 Commandments of Bariatric Eating handout documented in this encounter Plan of Treatment Upcoming Encounters Date Type Department Care Team (Late st Contact Info) Description 04/27/2024 14:30 EDT Telemedicine [facility] Neurology - S [address] [phone] Kj Gloria MD PhD 1 [facility], Level 2 [place] [phone] 04/30/2024 9:30 EDT Office Visit [facility] Interventional Pain [address] [place], [place] [phone] Catalino Garrett MD [address] [place] [address] 09/18/2024 11:00 EST Office Visit [facility] Bariatric Surgery - [place] [address] [place], [place] [address] Allen Thompson PA-C 111 [facility], [address] [place] [address] documented as of this encounter Visit Diagnoses Diagnosis Morbid obesity ([facility])- Primary Morbid obesity S/P laparoscopic sleeve gastrectomy Bariatric surgery status BMI 32.0-32.9,adult Body Mass Index 32.0-32.9, adult documented in this encounter Historical Medications * This list may reflect changes made after this encounter. Medication Sig Dispensed Refills Start Date End Date calcium carbonate/vitamin D3 (VITAMIN D-3 ORAL) Take by mouth. MAGNESIUM ORAL Take 500 mg by mouth daily. added in this encounter Care Teams Stock Mover Relationship Specialty Start Date End Date Juma Herrera MD [address] [place] [address] PCP - General 01/07/19 03/13/21 Juma Herrera MD [address] [place] [address] 12/08/18 documented as of this encounter
--- OUTSIDE RECORDS SUMMARY | 2024-04-22 23:49 | XMS_ITS | Encounter Summary ---
Author Organization [facility] Address [address] [place] [address] Care Team Providers Care Preventive Medicine Physician Name Role Phone Juma Herrera MD Unavailable Juma Herrera MD Primary Care Provider [phone] Reason for Referral * PT/OT/ST (Routine) - Specialty Report Received Specialty Diagnoses / Procedures [facility] Referred To Contact Diagnoses Low back pain, unspecified back pain laterality, unspecified chronicity, with sciatica presence unspecified Kj Child MD [address] [place] [address] Referral ID Status Reason Start Date Expiration Date Visits Requested Visits Authorized [id number] Specialty Report Received Specialty Services Required 04/03/2019 1 1 Question Answer Reason for Request: back pain Scheduling Comments (optional ? describe specific scheduling needs if applicable): routine Comments Aquatic therapy 3x a week Reason for Visit * Reason Onset Date Comments Back Pain 04/03/2019 Encounter Details Date Type Department Care Team (Late st Contact Info) Description 04/03/2019 Orders Only [facility] Spine Program - [place] [address] Kj Child MD [address] [place] [address] Low back pain, unspecified back pain laterality, unspecified chronicity, with sciatica presence unspecified (Primary Dx) Social History Tobacco Use Types Packs/Day Years Used Date Smoking Tobacco: Former Cigarettes Q uit: 01/13/2009 Smokeless Tobacco: Never Alcohol Use Standard Drinks/Week Comments Yes 0 (1 standard drink = 0.6 oz pur e alcohol) very rarely Sex and Gender Information Value Date Recorded [...] Contact Info) Description 04/27/2024 14:30 EDT Telemedicine [facility] Neurology [address] [address] Kj Gloria MD PhD 1 [facility] 2 [place] [phone] 04/30/2024 9:30 EDT Office Visit [facility] Interventional Pain [address] [place] [address] Catalino Garrett MD 62 [facility] [address] [place] [address] 09/18/2024 11:00 EST Office Visit [facility] Bariatric Surgery - [place] [address] [place] [address] Allen Thompson PA-C [address] [place] [address] [address] [place] [address] Scheduled Referrals Name Type Priority Associated Diagnoses Orde r Schedule AMB CONS/FOLLOW UP PHYSICAL THERAPY Outpatient Referral Routine Low back pain, unspecified back pain laterality, unspecified chronicity, with sciatica presence unspecified Ordered: 04/03/2019 documented as of this encounter Visit Diagnoses Diagnosis Low back pain, unspecified back pain laterality, unspecified chronicity, with sciatica presence unspecified- Primary documented in this encounter Care Teams Preventive Medicine Physician Relationship Specialty Start Date End Date Juma Herrera MD [address] [place] [phone] PCP - General 01/07/19 03/13/21 Juma Herrera MD [address] [place] [phone] 12/08/18 documented as of this encounter
--- OUTSIDE RECORDS SUMMARY | 2024-04-22 23:49 | XMS_ITS | Encounter Summary ---
Author Organization [facility] Address [address] [place] [address] Care Team Providers Care Gas Adjuster Name Role Phone Juma Herrera MD Unavailable Juma Herrera MD Primary Care Provider [phone] Reason for Referral * Radiology Services (Routine) - New Request Specialty Diagnoses / Procedures Referred By Contac t Referred To Contact Diagnoses Neck pain Procedures CERVICAL SPINE 4 OR MORE VIEWS Kj Child MD [address] [place] [address] Referral ID Status Reason Start Date Expiration Date V isits Requested Visits Authorized [id number] New Request 03/30/2019 1 1 Reason for Visit * Reason Onset Date Comments Neck Pain 03/20/2019 Encounter Details Date Type Department Care Team (Late st Contact Info) Description 03/20/2019 Orders Only [facility] Interventional Pain [address] [place] [address] Kj Child MD [address] [place] [address] Neck pain (Primary Dx) Social History Tobacco Use [...] EDT Telemedicine [facility] Neurology - [address] [address] Kj Gloria MD PhD 1 [facility] 2 [place] [phone] 04/30/2024 9:30 EDT Office Visit [facility] Interventional Pain 62 [facility] [place], [place] [phone] Catalino Garrett MD 62 [facility] [address] [place] [address] 09/18/2024 11:00 EST Office Visit [facility] Bariatric Surgery [facility] [address] [place] [address] Allen Thompson PA-C [address] [place] [address], [facility], Level [address] [place] [phone] Scheduled Orders Name Type Priority Associated Diagnoses Orde r Schedule CERVICAL SPINE 4 OR MORE VIEWS Imaging Routine Neck pain Ordered: 03/30/2019 documented as of this encounter Visit Diagnoses Diagnosis Neck pain- Primary Cervicalgia documented in this encounter Care Teams Gas Adjuster Relationship Specialty Start Date End Date Juma Herrera MD [address] [place] [phone] PCP - General 01/07/19 03/13/21 Juma Herrera MD [address] [place] [phone] 12/08/18 documented as of this encounter
--- OUTSIDE RECORDS SUMMARY | 2024-04-22 23:49 | XMS_ITS | Encounter Summary ---
Author Organization [facility] Address [address] [place] [address] Care Team Providers Care Commercial Marketing Specialist Name Role Phone Juma Herrera MD Unavailable Juma Herrera MD Primary Care Provider [phone] Reason for Visit * Reason Comments Follow-up * Consult (Routine) - Specialty Report Received Specialty Diagnoses / Procedures Referred By Wili mireles Referred To Contact Orthopedic Surgery Diagnoses Chronic bilateral low back pain without sciatica Cervicalgia Starr Hart, PA-C 192 [facility] [place] [address] [facility] Ortho Spine 192 [facility] [place] [address] Referral ID Status Reason Start Date Expiration Date Visits Requested Visits Authorized [id number] Specialty Report Received Specialty Services Required 03/03/2019 1 1 Encounter Details Date Type Department Care Team (Late st Contact Info) Description 04/03/2019 8:45 EDT Office Visit [facility] Spine [place] [address] Kj Child MD [address] [place] [address] [place] [address] Chronic midline low back pain without sciatica (Primary Dx) Discharge Disposition: Auto Discharge Social History Tobacco Use Types Packs/Day Years [...] Yes 09/15/2018 documented as of this encounter Discharge Diagnoses Diagnosis Z98.1 Arthrodesis status-Z98.1[ICD-10-CM] M54.5 Low back pain-M54.5[ICD-10-CM] G89.29 Other chronic pain-G89.29[ICD-10-CM] documented in this encounter Discharge Disposition Disposition Code Departure Means Destination Auto Discharge documented in this encounter Progress Notes * Kj Child MD - 04/03/2019 0845 EDT This office note has been dictated. Kj Child MD documented in this encounter Consult Notes * Kj Child MD - 04/03/2019 0000 EDT [facility] SPINE PROGRAM CONSULTATION - 04/03/2019 [...] relief of preoperative back and leg pain, butafter several years, began developing back pain again. Has had persisting low lumbosacral discomfort without radiation into her legs. Notes it is constant, exacerbated by activities. Nothing in particular seems to relieve it. She has undergone every 3 months, trigger point injections, finds them mildly helpful but not significantly. She did 2 months of physical therapy, which gave no change, chiro practy which did not change her symptoms. She has intermittently worn a brace, which is not helpful. She does take oxycodone. Currently takes 40 to 60 mg of oxycodone a day, which is only mildly helpful. She denies any bowel or bladder loss or changes, no genital numbness. The patient also describes neck pain. She has had neck pain and right periscapular pain, which has gone on for many years. She described pain in the mid cervical region, radiation of the right medialborder of her scapula is constant. Nothing in particular tends to exacerbate or relieve it. She has undergone dry needling with no relief. Massage, which is helpful, physical therapy, which has not made any difference and traction, which does provide some relief. Postural training is helpful. She has been seen by Starr Hart. Gets subacromial injection which significantly helped pain along thetop of her shoulder but does not do anything for the neck or periscapular symptoms. She notes no numbness, tingling or weakness in the right arm, although she notes the arm feels heavy. Past medical history, allergies and medications reviewed in [facility]. SOCIAL HISTORY: The patient is on SSDI. 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 She smokes half pack a day. OBJECTIVE: 5/5 deltoid, internal, external rotation, biceps, triceps, wrist flexion/extension, finger abduction, 5/5 EHL, tib ant, peroneal, gastroc, quad, ham, psoas, trace knee, trace ankle, no clonus, negative straight leg raising, negative Holm's. Neck is nontender. No interscalene tenderness. X-RAYS: MRI of the cervical spine shows multiple levels of degeneration. No evidence of spinal cordor nerve root impingement, no evidence of any significant foraminal stenosis. AP, lateral, flex/ex lateral lumbar films show an L3 pars defect, multiple levels of facet arthropathy. MRI demonstrates no evidence of any significant neurologic impingement in the lumbar spine. ASSESSMENT: Woman with neck and periscapular pain. The periscapular pain is referred symptoms, I donot think she has either myelopathy or radiculopathy. Symptoms are secondary to degeneration, low back pain could be secondary to musculoligamentous etiology, facet arthropathy or pars defect or somecombination of all these entities as well as previous surgery and muscular scarring. I discussed options and expectant management, ongoing exercise program to optimize function, facet blocks. I certainly do not see any specific lesion that surgery has a high likelihood of correcting as we do not have specificity regarding the location of her symptomatology. I discussed she may hurt, but she cannot hurt herself or cause damage. We discussed continued use [...] - Kj Child MD an Dictation ID: [id number] cc: Juma Herrera MD, [address] [address] documented in this encounter Plan of Treatment Upcoming Encounters Date Type Department Care Team (Late st Contact Info) Description 04/27/2024 14:30 EDT Telemedicine [facility] Neurology - S [address] [phone] Kj Gloria MD PhD 1 [facility], Level 2 [place] [phone] 04/30/2024 9:30 EDT Office Visit [facility] Interventional Pain [address] [place], [place] [phone] Catalino Garrett MD [address] [facility] [address] [place] [address] 09/18/2024 11:00 EST Office Visit [facility] Bariatric Surgery - [place] [address] [place], [place] [address] Allen Thompson PA-C 111 [facility], [address] [place] [phone] documented as of this encounter Visit Diagnoses Diagnosis Chronic midline low back pain without sciatica- Primary documented in this encounter Care Teams Commercial Marketing Specialist Relationship Specialty Start Date End Date Juma Herrera MD [address] [place] [phone] PCP - General 01/07/19 03/13/21 Juma Herrera MD [address] [place] [phone] 12/08/18 documented as of this encounter
--- OUTSIDE RECORDS SUMMARY | 2024-04-22 23:49 | XMS_ITS | Encounter Summary ---
Author Organization [facility] Address [address] [place] [address] Care Team Providers Care Panelbeater Name Role Phone Juma Herrera MD Unavailable Juma Herrera MD Primary Care Provider [phone] Reason for Referral * Prior Authorization (Routine) - Specialty Report Received Specialty Diagnoses / Procedures [facility] Referred To Contact Diagnoses Right shoulder pain, unspecified chronicity Starr Hart PA-C [address] [place] [address] Referral ID Status Reason Start Date Expiration Date Visits Requested Visits Authorized [id number] Specialty Report Received Specialty Services Required 02/20/2019 1 1 Question Answer Reason for Request: Right USG AC Injection Comments The purpose of this consult request is to inform the scheduling staff that a procedure/surgery needs to be prior-authorized before it is scheduled. Right USG AC Injection Encounter Details Date Type Department Care Team (Late st Contact Info) Description 02/18/2019 Orders Only [facility] Sports Medicine Program [place] [address] Starr Hart PA-C Right shoulder pain, unspecified chronicity (Primary Dx) Social History Tobacco [...] Telemedicine [facility] Neurology - [address] [phone] Kj Gloria MD PhD 1 [facility] 2 [place] [phone] 04/30/2024 9:30 EDT Office Visit [facility] Interventional Pain [address] [place] [address] Catalino Garrett MD 62 [facility] [address] [place] [address] 09/18/2024 11:00 EST Office Visit [facility] Bariatric Surgery - [place] [address] [place], [place] [phone] Allen Thompson PA-C 111 [facility], [address] 5 [place] [phone] Scheduled Referrals Name Type Priority Associated Diagnoses Order Schedule AMB CONS/FOLLOW UP PROCEDURE PRIOR AUTHORIZATION REQUEST Outpatient Referral Routine Right shoulder pain, unspecified chronicity Ordered: 02/20/2019 documented as of this encounter Visit Diagnoses Diagnosis Right shoulder pain, unspecified chronicity- Primary documented in this encounter Care Teams Panelbeater Relationship Specialty Start Date End Date Juma Herrera MD [address] [phone] PCP - General 01/07/19 03/13/21 Juma Herrera MD [address] [phone] 12/08/18 documented as of this encounter
--- OUTSIDE RECORDS SUMMARY | 2024-04-22 23:49 | XMS_ITS | Encounter Summary ---
Author Organization [facility] Address [address] [place] [address] Care Team Providers Care Ndt Inspector Name Role Phone Juma Herrera MD Unavailable Juma Herrera MD Primary Care Provider [phone] Reason for Visit * Reason Onset Date Comments Appointment Related 10/25/2020 Encounter Details Date Type Department Care Team (Late st Contact Info) Description 10/25/[address] [facility] Interventional Pain [address] [place] [address] Catalino Garrett MD [address] [place] [address] Appointment Related Social History Tobacco [...] have Coronavirus / COVID-19? No / Unsure 11/17/2020 9:03 EDT documented as of this encounter Functional [...] * Telephone Encounter - Fang Collazo - 10/25/2020 1139 EST Patient did not want to schedule an appointment for the knee and hand pain. She stated that it is just arthritis and it is the neck and the back that is problematic. She will ask Dr. Garrett about this when she comes in for 11/17 cervical procedure * Telephone Encounter - Millie Nunez RN - 10/25/2020 [...] CUAUHTEMOC - 80% relief for 3 months * Telephone Encounter - Molly Crawford - 10/25/2020 1002 [...] [facility] - [address] [place] [address] [place], [place] [address] Kj Gloria MD PhD 1 [facility], Level 2 [place] [phone] 04/30/2024 9:[address] [facility] Interventional Pain [address] [place] [address] Catalino Garrett MD 62 [facility] [address] [place] [address] 09/18/2024 11:00 EST Office Visit [facility] Bariatric Surgery - [place] [address] [place], [place] [address] Allen Thompson PA-C 111 [facility], [address] [place] [address] documented as of this encounter Visit Diagnoses Not on filedocumented in this encounter Care Teams Ndt Inspector Relationship Specialty Start Date End Date Juma Herrera MD [address] [place] [address] PCP - General 01/07/19 03/13/21 Juma Herrera MD [address] [place] [address] 12/08/18 documented as of this encounter
--- OUTSIDE RECORDS SUMMARY | 2024-04-22 23:49 | XMS_ITS | Encounter Summary ---
Author Organization [facility] Address [address] [place] [address] Care Team Providers Care Roasterman Name Role Phone Juma Herrera MD Unavailable Juma Herrera MD Primary Care Provider [phone] Reason for Referral * Medication Prior Authorization (Routine) - Authorized Specialty Diagnoses / Procedures Referred By Wili mireles Referred To Contact Pharmacy Diagnoses Chronic migraine without aura without status migrainosus, not intractable Kj Gloria MD PhD [address] [address] [facility] [address] [place] [address] Referral ID Status Reason Start Date Expiration Date Visits Requested Visits Authorized [id number] Authorized Medication Prior Authorization 1 1 1 Question Answer Medication to be Prior Authorized: Emgality for migraine prevention Comments The purpose of this consult request is to inform the scheduling staff that a medication needs to be prior-authorized before it is prescribed and/or administered. Reason for Visit * Reason Comments New Patient Visit * Referral (Routine) - Closed Specialty Diagnoses / Procedures Referred By Wili mireles Referred To Contact Neurology Diagnoses Migraine Shonda Sánchez, SHADE CLASSIFIER [address] [place] [address] Kj Gloria MD PhD 1 [address] [place] [address] Referral ID Status Reason Start Date Expiration Date Visits Re quested Visits Authorized [id number] Closed 1 1 Encounter Details Date Type Department Care Team (Late st Contact Info) Description 02/21/2021 9:00 EDT Telemedicine [facility] Neurology S [address] [address] Kj Gloria MD PhD 1 [facility] 2 [place] [address] Chronic migraine without aura without [...] Dispensed Refills Start Date End Da te SUMAtriptan Succinate 6 mg/0.5 mL cartridge Inject 6 mg into the skin as needed (migraine). Take as directed. 6 mL 11 02/21/2021 documented in this encounter Progress Notes * Kj Gloria MD PhD - 02/21/2021 0900 [...] (07/23/12 - 11/07/12) and Dr Dave Ortez ([facility] Headache onset was ~ 7 years old, and increased to 15 or more days per month consistently by age 15. She had her first age 17 and noted increased headache during . Headaches are currently daily, with severe headache ~ 15 days per month. Headaches are typically unilateral, throbbing, increased with exertion, 5-10/10 severity, and may be present on awakening and last all day. They may be associated with neck pain, nausea, vomiting, photophobia, phonophobia, allodynia, osmophobia, brain fog, dizziness, or memory impairments. She may e xperience a visual disturbance of heat waves or dark spots prior to, or during, the headache which may last seconds to hours. She may also experience transient right facial weakness or right arm shakes or twitches, which have occurred perhaps ten times over the past 20 years. Past Medical History: Diagnosis Date ??? Anxiety ??? Arthritis ??? Back pain ??? Bipolar disorder ([facility] ??? Breathing problem ??? Depression ??? Diabetes mellitus ([facility]) ??? Drug abuse ([facility]) ??? Environmental allergies ??? Eye problem ??? Generalized headaches ??? Headache(784.0) ??? Heart disease ??? History of substance abuse ([facility]) ??? Hypertension ??? Kidney disease ??? Mental disorder ??? Nervousness(799.21) ??? Numbness ??? Personality disorder ([facility]) ??? Plantar fasciitis ??? PTSD (post-traumatic stress disorder) ??? Tarsal tunnel syndrome Substance use disorder - cocaine (0062-2176) Chronic prescription opioid use Borderline personality Kidney stone Insomnia, snoring, no gasps, [place] = 3 Heart murmur Asthma Endometriosis GERD TBI (age 4 years) Patient Active Problem List Diagnosis Date Noted ??? Chronic migraine without aura without status migrainosus, not intractable 02/21/2021 ??? Morbid obesity with BMI of 45.0-49.9, adult ([facility]) 03/10/2015 ??? Cervicalgia 09/29/2012 ??? Idiopathic peripheral neuropathy 03/20/2012 ??? Tarsal tunnel syndrome of right side 08/02/2011 ??? 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 Lumbar radiculopathy 10/03/2006 Past Surgical History: Procedure Laterality Date ??? BACK SURGERY ??? CHOLECYSTECTOMY ??? LAMINECTOMY L5-S1 Dr. Bowers 1999 ??? SPINAL FUSION L5-S1 Dr. Child 2006 ??? TUBAL LIGATION Status post gastric sleeve for obesity (1/4/16). Status post L5-S1 fusion (1999, 2006) Status [...] cervical block (11/17/20), lumbar block (07/27/19), SI blocks(11/06/19, 01/12/21). Allergies Allergen Reactions ??? Adhesive Other [...] Gatherings with Friends and Family: ??? Attends Gnosticism Services: ??? Active Member of Clubs or Organizations: ??? Attends Club or Organization Meetings: ??? Marital Status: 7 cups of coffee / 1 cup tea per week. 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 Substance abuse (cocaine) 8593-0123. ROS: A complete 16 point review of [...] COVID-19 rt-PCR Result Negative Negative Performing Lab [facility] Lab ASSESSMENT/PLAN: Chronic migraine with/without aura, medication overuse headache (opioids, acetaminophen, caffeine). Risk factors for chronic migraine include analgesics, obesity, disrupted daily schedule / sleep, affective disorders, family history. Taper oxycodone and caffeine, as tolerated, to reduce medication overuse headache. Increase sumatriptan from 3mg to 6mg PRN, for use up to 8 days per month, on days when mild headache is progressing towards severe pain. Start Emgality. I urged her to attempt to video the involutary right arm movements should they recur to assist withdiagnosis. Keep headache record. Return to clinic 4 months. Consider - Aimovig, Botox, Nurtec every other day, venlafaxine. 02/21/2021 9:10 Cc: Juma Herrera Cc: Gonzalo documented in this encounter Plan of Treatment Upcoming Encounters Date Type Department Care Team (Late st Contact Info) Description 04/27/2024 14:30 EDT Telemedicine [facility] Neurology - S [address] [address] Kj Gloria MD PhD 1 [facility], Level 2 [place] [phone] 04/30/2024 9:30 EDT Office Visit [facility] Interventional Pain [address] [place] [address] Catalino Garrett MD [address] [place] [address] 09/18/2024 11:00 EST Office Visit [facility] Bariatric Surgery - [place] [address] [place], [place] [phone] Allen Thompson, PALizettC 111 [facility], Level [address] [place] [phone] Scheduled Referrals Name Type Priority Associated Diagnoses Order Schedule AMB MEDICATION PRIOR AUTHORIZATION Outpatient Referral Routine Chronic migraine without aura without status migrainosus, not intractable Ordered: 02/21/2021 documented as of this encounter Visit Diagnoses Diagnosis Chronic migraine without aura without status migrainosus, not intractable- Primary Chronic migraine without aura, without mention of intractable migraine without mention of status migrainosus documented in this encounter Discontinued Medications Medication Sig Discontinue Reason Start Date End Da te SUMAtriptan succinate 3 mg/0.5 mL pen injector Inject into the skin three times a week. Alternate therapy 02/21/2021 documented as of this encounter Historical Medications * This list may reflect changes made after this encounter. Medication Sig Dispensed Refills Start Date End Date cholecalciferol, Vitamin D3, 25 mcg (1,000 unit) tablet Take 4 Tablets by mouth daily. diphenhydrAMINE-acetamin ophen 25-500 mg tablet Take 1 Tablet by mouth at bedtime as needed. 05/17/2022 potassium chloride (KLOR-CON) 20 mEq packet Take 20 mEq by mouth daily. 05/17/2022 added in this encounter Care Teams Roasterman Relationship Specialty Start Date End Date Juma Herrera MD [address] [place] [phone] [facility] - General 01/07/19 03/13/21 Juma Herrera MD [address] [place] [phone] 12/08/18 documented as of this encounter
--- OUTSIDE RECORDS SUMMARY | 2024-04-22 23:49 | XMS_ITS | Encounter Summary ---
Author Organization [facility] Address [address] [place] [address] Care Team Providers Care Ship Carpenter Name Role Phone Juma Herrera MD Unavailable Juma Herrera MD Primary Care Provider [phone] Reason for Visit * Reason Onset Date Comments Prior Auth, Other (i.e. radiology, etc.) 019 Encounter Details Date Type Department Care Team (Late st Contact Info) Description 07/28/2019 Telephone [facility] Interventional Pain 62 [facility] [place] [address] Catalino Garrett MD 62 [facility] [address] [place] [address] Prior Auth, Other (i.e. radiology, etc.) Social History Tobacco Use Types Packs/Day Years [...] encounter Miscellaneous Notes * Telephone Encounter - Millie Machado - 07/29/2019 1541 EST ABN will have to be done after the first of the year as pt is due to come in October. A Recall hasbeen placed. When pt calls to set up his repeat bilateral SI joint inj (around 10/27/2019) with , please schedule then sent to the PA pool for current ABN. * Telephone Encounter - Mica Souza - 07/28/2019 0843 [...] Telemedicine [facility] Neurology - [address] [place] [address] [place], [place] [address] Kj Gloria MD PhD 1 [facility], Level 2 [place] [address] 04/30/2024 9:30 EDT Office Visit [facility] Interventional Pain 62 [facility] [place], [place] [phone] Catalino Garrett MD 62 [facility] [address] [place] [address] 09/18/2024 11:00 EST Office Visit [facility] Bariatric Surgery - [place] [address] [place] [address] Allen Thompson PA-C [address] [place] [address], [address] [place] [phone] documented as of this encounter Visit Diagnoses Not on filedocumented in this encounter Care Teams Ship Carpenter Relationship Specialty Start Date End Date Juma Herrera MD [address] [phone] PCP - General 01/07/19 03/13/21 Juma Herrera MD [address] [phone] 12/08/18 documented as of this encounter
--- OUTSIDE RECORDS SUMMARY | 2024-04-22 23:49 | XMS_ITS | Encounter Summary ---
Author Organization [facility] Address [address] [place] [address] Care Team Providers Care Investment Banking Analyst Name Role Phone Juma Herrera MD Unavailable Juma Herrera MD Primary Care Provider [phone] Encounter Details Date Type Department Care Team (Latest Contact Info) Description 11/06/2019 10:00 EST - 11/07/2019 23:59 EST Hospital Encounter [facility] Pain Clinic Xray [address] [place], [place] [phone] Discharge Disposition: Home or Self Care Social [...] Start Date End Date cortisone acetate (CORTISONE IM) Inject 1 Dose into the muscle every 3 months. duloxetine (CYMBALTA) 30 mg capsule Take 3 Capsules by mouth daily. Take with 60mg cap to =90mg dose 05/16/2011 MEDICAL MARIJUANA as needed. methylphenidate (RITALIN SR; METADATE ER; METHYLIN ER) 20 mg SR tablet Take by mouth 2 times daily. Takes 20 mg every morning, 20 mg every afternoon, 10 mg every evening. methylphenidate (RITALIN;METHYLIN) 5 mg tablet Take 2 Tablets by mouth 2 times daily. pregabalin (LYRICA) 50 mg capsule Take 2 Caps by mouth 3 times daily. 180 Cap 3 08/21/2012 prochlorperazine (COMPAZINE) 10 mg tabletIndications:S/P laparoscopic sleeve gastrectomy,Gastroesophag eal reflux disease without esophagitis Take 1 Tab by mouth every 6 hours as needed for Nausea 60 Tab 0 08/31/2015 LORazepam (ATIVAN) 0.5 mg tablet Take 0.5 mg by mouth at bedtime. 05/17/2022 omeprazole (PRILOSEC) 20 mg capsuleIndications:S/P laparoscopic sleeve gastrectomy,Gastroesophag eal reflux disease without esophagitis Take 2 Caps by mouth daily 60 Cap 3 08/31/2015 09/22/2021 oxyCODONE (ROXICODONE) 5 mg immediate release tablet Take 2 Tabs by mouth every 4 hours Hold for now while taking liquid form Daily Max: 60 mg 09/07/2015 05/17/2022 pediatric multivitamin (JUAN CHEW VIT) chewable tablet Take 1 Tab by mouth daily Hold for 2 weeks 09/07/2015 05/17/2022 rizatriptan (MAXALT) 10 mg tablet Take 10 mg by mouth once as needed. May repeat in 2 hours if needed 12/18/2021 SUMAtriptan succinate 3 mg/0.5 mL pen injector Inject into the skin three times a week. 02/21/2021 documented as of this encounter Discharge Disposition Disposition Code Departure Means Destination Home or Self Care documented in this encounter Plan of Treatment Upcoming Encounters Date Type Department Care Team (Late st Contact Info) Description 04/27/2024 14:30 EDT Telemedicine [facility] Neurology - [address] [place] [address] [place], [place] [address] Kj Gloria MD PhD 1 [facility], Level [address] [place] [phone] 04/30/2024 9:30 EDT Office Visit [facility] Interventional Pain [address] [facility] [place], [place] [phone] Catalino Garrett MD [address] [facility] [address] [place] [address] 09/18/2024 11:00 EST Office Visit [facility] Bariatric Surgery - [place] [address] [address] [place], [place] [address] Allen Thompson PA-C 111 [place] [facility], [address] [place] [phone] documented as of this encounter Procedures Procedure Name Priority Date/Time Associated Diagnosis Comments PAIN CLINIC FL SACROILIAC JOINT INJECTION Routine 11/06/2019 10:25 EST documented in this encounter Results * PAIN CLINIC FL SACROILIAC JOINT INJECTION (11/06/2019 10:25 EST) Narrative 11/06/2019 10:25 EST This is a non-reportable exam. Catalino Garrett MD IMG OTHER IMAGING OR DERABLES documented in this encounter Visit Diagnoses Not on filedocumented in this encounter Care Teams Investment Banking Analyst Relationship Specialty Start Date End Date Juma Herrera MD [address] [facility] [place] [address] PCP - General 01/07/19 03/13/21 Juma Herrera MD [address] [place] [phone] 12/08/18 documented as of this encounter
--- OUTSIDE RECORDS SUMMARY | 2024-04-22 23:49 | XMS_ITS | Encounter Summary ---
Author Organization [facility] Address [address] [place] [address] Care Team Providers Care Hot Dip Plater Name Role Phone Juma Herrera MD Unavailable Juma Herrera MD Primary Care Provider [phone] Reason for Visit * Reason Comments Neck Pain Shoulder Pain bilateral-9 Arm Pain right- sometimes * Office Procedure (Routine) - Specialty Report Received Specialty Diagnoses / Procedures Referred By Wili mireles Referred To Contact Pain Medicine Diagnoses Other cervical disc degeneration, unspecified cervical region Sacroiliitis, not elsewhere classified ([facility]) Cervical Epidural Steroid Injection / NO ABN NEEDED Procedures [place] NJX DX/THER SBST INTRLMNR CRV/THRC W/IMG GDN PROCEDURE MEDIUM [facility] [address] [place] [address] Catalino Garrett MD [address] [facility] [address] [place] [address] Referral ID Status Reason Start Date Expiration Date V isits Requested Visits Authorized [id number] Specialty Report Received 10/21/2020 1 1 Encounter Details Date Type Department Care Team (Latest Contact Info) Description 11/17/2020 9:00 EDT Procedure visit [facility] Interventional Pain [address] [place] [address] Catalino Garrett MD [address] [place] [address] DDD (degenerative disc disease), cervical (Primary Dx); Sacroiliitis ([facility]) Social History Tobacco Use Types Packs/Day Years [...] have Coronavirus / COVID-19? No / Unsure 12/19/2020 16:23 EDT documented as of this encounter Last [...] this encounter Patient Instructions * Patient Instructions* SomDelaney marroquin RN - 11/17/2020 9:00 EDT [facility] [address] [place] [address] Patient Instructions You have had your cervical [...] to: Patient Barriers: None Outcomes: verbalized understanding DELANEY REYNA RN documented in this encounter Progress Notes * Madai Juarez MA - 11/17/2020 0900 EDT [facility] Rooming Note Does patient have a Facilities Mechanical Design Engineer? yes Is patient NPO? (Solids since midnight [...] no Other: * Catalino Garrett MD - 11/17/2020 0900 EDT Procedure: C6-7 cervical epidural under fluoroscopy Date Performed: 11/17/2020 Floor Scraper: Gerry MEHTA Ibm Mainframe Systems Programmer: None See history and physical from Starr AVILA as well as scan media for clinical details, imaging, indications and medical necessity. Primarily neck and right sided arm pain. Did well with prior epidural in September, with around 80% relief of her pain for 3 months. No contraindication for the procedure. Written informed consent discussing the risks and alternatives were personally discussed withthe patient, signed, and scanned in the chart. [...] DDD (degenerative disc disease), cervical 2. Sacroiliitis ([facility]) Recommendations: 1) has evidence of SI [...] performed at the time of the visit. * Delaney Reyna RN - 11/17/2020 0900 EDT ATTENTION: This Checklist should be reviewed with the patient, provider, nurse/MA, and radiology aide in the room prior to local anesthetic [...] 14:30 EDT Telemedicine [facility] Neurology - [address] [place], [place] [address] Kj Gloria MD PhD 1 [facility], Level 2 [place] [phone] 04/30/2024 9:30 EDT Office Visit [facility] Interventional Pain [address] [place] [address] Catalino Garrett MD [address] [place] [phone] 09/18/2024 11:00 EST Office Visit [facility] Bariatric Surgery - [place] [address] [place], [place] [address] Allen Thompson, PALizettC 111 [facility], [address] [place] [address] documented as of this encounter [...] dose, On Karen 11/17/20 at 1000, Routine Given by Other 11/17/2020 9:39 EDT 2 mL methylPREDNISolone ACETATE (DEPO-MEDROL) injection 80 mg 80 mg, neural-axial, NOW X1, 1 dose, On Karen 11/17/20 at 1000, Routine Given by Other 11/17/2020 9:40 EDT 80 mg documented in this encounter Care Teams Hot Dip Plater Relationship Specialty Start Date End Date Juma Herrera MD [address] [phone] PCP - General 01/07/19 03/13/21 Juma Herrera MD [address] [phone] 12/08/18 documented as of this encounter
--- OUTSIDE RECORDS SUMMARY | 2024-04-22 23:49 | XMS_ITS | Encounter Summary ---
Author Organization [facility] Address [address] [place] [address] Care Team Providers Care Employment Trainer Name Role Phone Juma Herrera MD Unavailable Juma Herrera MD Primary Care Provider [phone] Reason for Visit * Reason Onset Date Comments Appointment Related 06/05/2019 Encounter Details Date Type Department Care Team (Late st Contact Info) Description 06/05/2019 Telephone [facility] Spine Program - [address] [place] [address] Kj Child MD [address] [facility] [place] [address] Appointment Related Social History Tobacco [...] Notes * Telephone Encounter - Miguel Crandall - 06/05/2019 1452 EDT Returned Tia's call, inquiring about the injection she talked about with Dr Child during her 04/03 apt, she hadn't heard anything about it. Told [...] Info) Description 04/27/2024 14:30 EDT Telemedicine [facility] Neurology - [address] [address] Kj Gloria MD PhD 1 [facility] 2 [place] [phone] 04/30/2024 9:30 EDT Office Visit [facility] Interventional Pain [address] [facility] [place] [address] Catalino Garrett MD [address] [facility] [address] [place] [address] 09/18/2024 11:00 EST Office Visit [facility] Bariatric Surgery - [address] [address] Allen Thompson PA-C [address] [place] [address], Level [address] [place] [address] documented as of this encounter Visit Diagnoses Not on filedocumented in this encounter Care Teams Employment Trainer Relationship Specialty Start Date End Date Juma Herrera MD [address] [phone] PCP - General 01/07/19 03/13/21 Juma Herrera MD [address] [phone] 12/08/18 documented as of this encounter
--- OUTSIDE RECORDS SUMMARY | 2024-04-22 23:49 | XMS_ITS | Encounter Summary ---
Author Organization [facility] Address [address] [place] [address] Care Team Providers Care Clinical Therapist Name Role Phone Juma Herrera MD Unavailable Juma Herrera MD Primary Care Provider [phone] Shonda Sánchez NP Primary Care Provider [phone] [facility] Primary Care Provider [phone] Curtis Burns MD Primary Care Provider [phone] Encounter Details Date Type Department Care Team (Late st Contact Info) Description 09/09/2019 Lab Requisition [facility] Pathology & Laboratory Medicine - [address] [address] Brit Veliz, DIE REPAIR MACHINIST [address] [place] [address] Encounter for other general examination Social History Tobacco Use Types Packs/Day Years [...] EDT Telemedicine [facility] Neurology - [facility] 1 [place], [place] [address] Kj Gloria MD PhD 1 [facility] 2 [place] [phone] 04/30/2024 9:30 EDT Office Visit [facility] Interventional Pain [address] [place] [address] Catalino Garrett MD 62 [facility] [address] [place] [address] 09/18/2024 11:00 EST Office Visit [facility] Bariatric Surgery - [place] [address] [place], [place] [address] Allen Thompson PA-C 111 [facility], [address] [place] [phone] documented as of this encounter Procedures Procedure Name Priority Date/Time Associated Diagnosis Comments SURGICAL PATHOLOGY Today 09/09/2019 9: 15 EST Encounter for other general examination documented in this encounter Results * SURGICAL PATHOLOGY (09/09/2019 9:15 EST) Final Diagnosis A. SUBMITTED ? PERITONEAL TUBULAR STRUCTURE? , EXCISION: - Features consistent with round ligament. B. OVARIES AND FALLOPIAN TUBE, RIGHT, BILATERAL OOPHORECTOMY AND UNILATERAL SALPINGECTOMY: - Ovaries: - Cystically dilated follicles. - Adhesions. - Fallopian tube: - Hydrosalpinx. - Adhesions. - Status post prior ligation. - Detached fibrotic tissue with focal scarring, adhesions, and focal polarizable foreign material with associated giant cell reaction compatible with prior operative effect. 09/11/2019 17:42 [facility] at 1741 Clinical History Chronic pelvic pain 09/11/2019 17:42 [facility] Attestation There was significant resident/fellow involvement in the diagnostic evaluation of this case. By the signature below, the attending physician certifies that they have personally conducted a gross and/or microscopic examination of the described specimens and rendered or confirmed the above diagnosis. 09/11/2019 17:42 [facility] at 1741 Gross Description A. Received in formalin labelled with proper patient identification (initials C, S) and 1. Peritoneal tubular structure is a white glistening tissue (5.3 cm in length ranging from 0.2 cm to 0.3 cm in diameter). The outer surface is partially hyperemic. The cut surfaces are ko-white. Four community health representative cross sections are submitted in A1. B. Received in formalin labelled with proper patient identification (initials C, S) and 2. Right + left ovaries with right fallopian tube is a segment of fallopian tube (4.9 cm in length x 2.0 cm in diameter) without fimbria with an attached ovary (3.4 x 2.5 x 1.7 cm), an additional detached ovary (4.0 x 2.3 x 1.1 cm) and two fragments of gillespie-brown soft tissue (aggregating to 1.6 x 1.5 x 0.6 cm). The serosal surface of the right fallopian tube is smooth and gillespie-purple with a white plastic ligation band present at one end. The fallopian tube is markedly dilated with a 1.7 cm lumen containing clear serous fluid. The remaining cut surfaces are smooth and ko-white. The right and left ovary have smooth to slightly cerebriform ko-white to yellow outer surfaces. Sectioning of the ovaries reveals heterogeneous parenchyma with several smooth-walled cysts (0.3 cm to 0.8 cm in greatest diameter). The cysts contain clear serous fluid and are without excrescences. The soft tissues have ko-brown cut surfaces. Supervisor Records Change sections are submitted as follows: BLOCK LOUIE B1-B2- right fallopian tube B3-B4- right ovary B5- left ovary B6- soft tissue Morenita Sandoval 09/10/2019 09:50 09/11/2019 17:42 EST [facility] Resident/Jorje w: Rosamaria Lopez MD 09/11/2019 17:42 EST [facility] Scanned Images 09/11/2019 17:42 EST [facility] Tissue BOTH OVARIES / Unknown 09/09/2019 9:15 EST 09/09/2019 22:17 EST Tissue specimen (specimen) BOTH OVARIES / Unknown 09/09/2019 9:15 EST 09/09/2019 22:17 EST Brit Veliz NP PATHOLOGY ORDERABLES Performing Organization Address City/State/[facility] Co de Phone Number [facility] [address] [place] [address] documented in this encounter Visit Diagnoses Diagnosis Encounter for other general examination documented in this encounter Additional Health Concerns Infection Onset Date Last Indicated Resolved Time COVID-19 08/15/2021 08/15/2021 09/04/2021 22:1 5 EST documented as of this encounter Care Teams Clinical Therapist Relationship Specialty Start Date End Date Juma Herrera MD [address] [place] [address] PCP - General 01/07/19 03/13/21 Shonda Sánchez NP [address] [place] [address] [address] [place] [address] PCP - General 03/14/21 01/31/22 [facility] [address] [place] [address] PCP - General 02/01/22 07/05/22 Curtis Burns MD [address] [place] [address] PCP - General Emergency Medicine 07/06/22 Juma Herrera MD [address] [facility] [place] [address] 12/08/18 documented as of this encounter
--- OUTSIDE RECORDS SUMMARY | 2024-04-22 23:49 | XMS_ITS | Encounter Summary ---
Author Organization [facility] Address [address] [place] [address] Care Team Providers Care Aged Or Disabled Care Worker Name Role Phone Juma Herrera MD Unavailable Juma Herrera MD Primary Care Provider [phone] Reason for Visit * Reason Onset Date Comments Appointment Related 01/05/2021 Encounter Details Date Type Department Care Team (Late st Contact Info) Description 01/05/2021 Telephone [facility] Interventional Pain [address] [place] [address] Millie Nunez, ALEXANDER Appointment Related Social History Tobacco Use Types [...] 16:23 EDT documented as of this encounter Functional [...] Miscellaneous Notes * Telephone Encounter - Millie Nunez RN - 01/05/2021 0770 EDT RN call to pt who verbalized understanding of following in preparation of injection appt on 01/12/21: -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 -No Vaccines 2 weeks before or after procedures that involve steroids -pt states her 2nd vaccine isscheduled for 01/24 which is 12 days post steroid injection. Per Dr. Garrett, pt to consider changing vaccine date to at least 14 days out or to change steroid injection date. Pt states doesn't think 2 days will impact the effect of the vaccine and she plans to keep injection appts as scheduled. Patient is provided clinic phone number [phone] for any additional questions. documented in this encounter Plan of Treatment Upcoming Encounters Date Type Department Care Team (Late st Contact Info) Description 04/27/2024 14:30 EDT Telemedicine [facility] Neurology - [address] [address] Kj Gloria MD PhD 1 [facility], Level [address] [place] [phone] 04/30/2024 9:30 EDT Office Visit [facility] Interventional Pain [address] [place], [place] [phone] Catalino Garrett MD 62 [facility] [address] [place] [address] 09/18/2024 11:00 EST Office Visit [facility] Bariatric Surgery - [place] [address] [place] [address] Allen Thompson PA-C [address] [place] [address], [address] [place] [phone] documented as of this encounter Visit Diagnoses Not on filedocumented in this encounter Care Teams Aged Or Disabled Care Worker Relationship Specialty Start Date End Date Juma Herrera MD [address] [place] [address] PCP - General 01/07/19 03/13/21 Juma Herrera MD [address] [place] [address] 12/08/18 documented as of this encounter
--- OUTSIDE RECORDS SUMMARY | 2024-04-22 23:49 | XMS_ITS | Encounter Summary ---
Author Organization [facility] Address [address] [place] [address] Care Team Providers Care Tile Shader Name Role Phone Juma Herrera MD Unavailable Juma Herrera MD Primary Care Provider [phone] Reason for Visit * Reason Comments Knee Pain bilateral but most r ight Encounter Details Date Type Department Care Team (Latest Contact Info) Description 12/19/2020 16:30 EDT Office Visit [facility] Interventional Pain [address] [place] [address] Catalino Garrett MD [address] [place] [address] Chronic pain of right knee (Primary Dx); Sacroiliitis (HCC-CMS); DDD (degenerative disc disease), cervical Social History Tobacco Use Types Packs/Day [...] Progress Notes * Catalino Garrett MD - 12/19/2020 1630 EDT [...] file Gets together: Not on file Attends cheondoism service: Not on file Active member of [...] undergoes YSABEL and b/l SIJ injection, so using steroids on yet another painful body part could [...] Contact Info) Description 04/27/2024 14:30 EDT Telemedicine [facility] Neurology - [address] [address] Kj Gloria MD PhD 1 [facility] Level 2 [place] [phone] 04/30/2024 9:30 EDT Office Visit [facility] Interventional Pain [address] [place], [place] [phone] Catalino Garrett MD [address] [place] [address] 09/18/2024 11:00 EST Office Visit [facility] Bariatric Surgery [facility] [address] [place] [address] Allen Thompson PA-C 111 [facility], [address] [place] [address] documented as of this encounter Visit Diagnoses Diagnosis Chronic pain of right knee- Primary Sacroiliitis (HCC-CMS) Sacroiliitis, not elsewhere classified DDD (degenerative disc disease), cervical Degeneration of cervical intervertebral disc documented in this encounter Care Teams Tile Shader Relationship Specialty Start Date End Date Juma Herrera MD [address] [phone] PCP - General 01/07/19 03/13/21 Juma Herrera MD [address] [phone] 12/08/18 documented as of this encounter
--- OUTSIDE RECORDS SUMMARY | 2024-04-22 23:49 | XMS_ITS | Encounter Summary ---
Author Organization [facility] Address [address] [place] [address] Care Team Providers Care Petroleum Geologist Name Role Phone Juma Herrera MD Unavailable Juma Herrera MD Primary Care Provider [phone] Reason for Visit * Reason Onset Date Comments Prior Auth, Other (i.e. radiology, etc.) 020 Encounter Details Date Type Department Care Team (Late st Contact Info) Description 11/06/2019 Telephone [facility] Interventional Pain 62 [facility] [place] [address] Catalino Garrett MD [address] [facility] [address] [place] [address] Prior Auth, Other (i.e. radiology, [...] * Telephone Encounter - Mica Souza - 01/13/2020 1117 EDT Spoke with patient 01/13/2020, let her know to disregard abn that was previously sent for her review. NO ABN NEEDED. * Telephone Encounter - Mica Souza - 12/29/2019 1350 EDT Spoke with patient 12/29/19 1:35pm, in regards to ABN. She was concerned about how much the procedure would cost if Medicare denied the service. I advised I will send the ABN to her for review, as well as an application for financial assistance. She will review and contact us with any further questions or concerns. * Telephone Encounter - Mica Souza - 12/07/2019 1054 EDT An ABN has been drafted for this appointment. Ready to reach out to patient. * Telephone Encounter - Mica Souza - 11/10/2019 0927 EDT Will need a signed ABN for this appointment. CPT Code 87177 has no medicare coverage documents. * Telephone Encounter - Ermelinda Fisher - 11/06/2019 1031 EST Cervical Epidural Steroid Injection Please Obtain Prior Auth Patient is schedued for 01/07/2020 at 9:15am with Dr. Garrett documented in this encounter Plan of Treatment Upcoming Encounters Date Type Department Care Team (Late st Contact Info) Description 04/27/2024 14:30 EDT Telemedicine [facility] Neurology - [address] [place] [address] [place], [place] [address] Kj Gloria MD PhD 1 [facility], Level [address] [place] [phone] 04/30/2024 9:30 EDT Office Visit [facility] Interventional Pain [address] [place] [address] Catalino Garrett MD [address] [facility] [address] [place] [phone] 09/18/2024 11:00 EST Office Visit [facility] Bariatric Surgery - [place] [address] [place] [address] Allen Thompson PA-C 111 [facility], Level [address] [place] [address] documented as of this encounter Visit Diagnoses Not on filedocumented in this encounter Care Teams Petroleum Geologist Relationship Specialty Start Date End Date Juma Herrera MD [address] [place] [address] PCP - General 01/07/19 03/13/21 Juma Herrera MD [address] [place] [address] 12/08/18 documented as of this encounter
--- OUTSIDE RECORDS SUMMARY | 2024-04-22 23:49 | XMS_ITS | Encounter Summary ---
Author Organization [facility] Address [address] [place] [address] Care Team Providers Care Lumber Straightened Name Role Phone Juma Herrera MD Unavailable Juma Herrera MD Primary Care Provider Reason for Visit * Reason Onset Date Comments Neck Pain 03/27/2019 Encounter Details Date Type Department Care Team (Late st Contact Info) Description 03/27/2019 Orders Only [facility] Spine Program - [address] [place] [address] Kj Child MD 192 [facility] [place] [address] Neck pain (Primary Dx) Social [...] Telemedicine [facility] Neurology - [facility] 1 [place] [address] Kj Gloria MD PhD 1 [facility] Level 2 [place] [phone] 04/30/2024 9:30 EDT Office Visit [facility] Interventional Pain [address] [place], [place] [phone] Catalino Garrett MD 62 [facility] [address] [place] [phone] 09/18/2024 11:00 EST Office Visit [facility] Bariatric Surgery [facility] [address] [place] [address] Allen Thompson PA-C 111 [facility], [address] [place] [address] documented as of this encounter Visit Diagnoses Diagnosis Neck pain- Primary Cervicalgia documented in this encounter Care Teams Lumber Straightened Relationship Specialty Start Date End Date Juma Herrera MD [address] [phone] PCP - General 01/07/19 03/13/21 Juma Herrera MD [address] [place] [address] 12/08/18 documented as of this encounter
--- OUTSIDE RECORDS SUMMARY | 2024-04-22 23:49 | XMS_ITS | Encounter Summary ---
Author Organization [facility] Address [address] [place] [address] Care Team Providers Care Process Development Chemist Name Role Phone Juma Herrera MD Unavailable Juma Herrera MD Primary Care Provider [phone] Reason for Referral * Consult (Routine) - Specialty Report Received Specialty Diagnoses / Procedures Referred By Contac t Referred To Contact Orthopedic Surgery Diagnoses Chronic bilateral low back pain without sciatica Cervicalgia Starr Hart PA-C [address] [place] [address] [facility] Ortho [place] [address] Referral ID Status Reason Start Date Expiration Date Visits Requested Visits Authorized [id number] Specialty Report Received Specialty Services Required 03/03/2019 1 1 Question Answer Reason for Request: low back pain, neck pain Reason for Visit * Reason Comments Shoulder Pain right * Prior Authorization (Routine) - Specialty Report Received Specialty Diagnoses / Procedures Referred By Contac t Referred To Contact Diagnoses Right shoulder pain, unspecified chronicity Starr Hart PA-C [address] [place] [address] Referral ID Status Reason Start Date Expiration Date Visits Requested Visits Authorized [id number] Specialty Report Received Specialty Services Required 02/20/2019 1 1 Encounter Details Date Type Department Care Team (Late st Contact Info) Description 03/03/2019 13:00 EDT Office Visit [facility] Sports Medicine Program [place] [address] Starr Hart PA-C Chronic bilateral low back pain without sciatica (Primary Dx); Cervicalgia; Nontraumatic incomplete tear of right rotator cuff Discharge Disposition: Auto Discharge Social History Tobacco [...] documented in this encounter Progress Notes * Bee Jackson - 03/03/2019 1300 EDT Right USG SA Injection Bupivacaine 0.5% 10 mL Med lot number [id number] [facility] number: [id number] Exp date:09/23 Medical Photographer: [employer] Drug waste: 10 mL vial, used mL,3 wasted 7 mL Triamcinolone 200 mg/5mL Med lot number:[id number] [facility] number:[id number] Exp date: 09/22 Medical Photographer: [employer] Drug waste:5 mL vial, used 2 mL, wasted 3 mL LIDOCAINE 2 % 20 mL Med lot number:[id number] [facility] number:[id number] Exp date: 10/23 Medical Photographer: [employer] Drug waste: 20 mL vial, used 6 mL, wasted 14mL Bee Jackson 03/03/2019 12:52 documented in this encounter Procedure Notes * Tanner Blood, Starr S - 03/03/2019 1300 EDT Chief Complaint Patient [...] noted. The acromion, supraspinatus tendon and greater tuberositywere localized under ultrasound. Images were saved. Pt [...] EDT Telemedicine [facility] Neurology - [address] [id number] Kj Gloria MD PhD 1 [facility], Level [address] [place] [phone] 04/30/2024 9:30 EDT Office Visit [facility] Interventional Pain 62 [facility] [place], [place] [phone] Catalino Garrett MD 62 [facility] [address] [place] [address] 09/18/2024 11:00 EST Office Visit [facility] Bariatric Surgery - [place] [address] [place], [place] [address] Allen Thompson PA-C 111 [facility], [address] [place] [address] Scheduled Referrals Name Type Priority Associated Diagnoses Order Schedule AMB CONS/FOLLOW UP ORTHOPEDICS Outpatient Referral Routine Chronic bilateral low back pain without sciatica Cervicalgia Ordered: 03/03/2019 documented as of this encounter Visit Diagnoses Diagnosis Chronic bilateral low back pain without sciatica- Primary Cervicalgia Nontraumatic incomplete tear of right rotator cuff Partial tear of rotator cuff documented in this encounter Care Teams Process Development Chemist Relationship Specialty Start Date End Date Juma Herrera MD [address] [phone] PCP - General 01/07/19 03/13/21 Juma Herrera MD [address] [id number] 12/08/18 documented as of this encounter
--- OUTSIDE RECORDS SUMMARY | 2024-04-22 23:49 | XMS_ITS | Encounter Summary ---
Author Organization [facility] Address [address] [place] [address] Care Team Providers Care Pin Machine Operator Name Role Phone Juma Herrera MD Unavailable Juma Herrera MD Primary Care Provider [phone] Encounter Details Date Type Department Care Team (Latest Contact Info) Description 11/17/2020 Travel Social History Tobacco Use [...] Telemedicine [facility]rology - [facility] 1 [place], [place] [address] Kj Gloria MD PhD 1 [facility] Level [address] [place] [phone] 04/30/2024 9:30 EDT Office Visit [facility] Interventional Pain [address] [place], [place] [phone] Catalino Garrett MD 62 [facility] [address] [place] [address] 09/18/2024 11:00 EST Office Visit [facility] Bariatric Surgery [facility] [address] [place], [place] [address] Allen Thompson PA-C 111 [facility], [address] [place] [phone] documented as of this encounter Visit Diagnoses Not on filedocumented in this encounter Care Teams Pin Machine Operator Relationship Specialty Start Date End Date Juma Herrera MD [address] [phone] PCP - General 01/07/19 03/13/21 Juma Herrera MD [address] [phone] (work) 12/08/18 documented as of this encounter
--- OUTSIDE RECORDS SUMMARY | 2024-04-22 23:49 | XMS_ITS | Encounter Summary ---
Author Organization [facility] Address [address] [place] [address] Care Team Providers Care Criminal Intelligence Specialist Name Role Phone Juma Herrera MD Unavailable Juma Herrera MD Primary Care Provider [phone] Reason for Visit * Reason Comments Back Pain lower Neck Pain Shoulder Pain right Leg Pain bilateral * Referral (3 - 10 Business Days) - Closed Specialty Diagnoses / Procedures Referred By Contmarco a t Referred To Contact Pain Medicine Diagnoses Back pain, unspecified back location, unspecified back pain laterality, unspecified chronicity Kj Child MD [address] [facility] [place] [address] [facility] [address] [place] [address] Referral ID Status Reason Start Date Expiration Date V isits Requested Visits Authorized [id number] Closed Specialty Services Required 06/04/2019 1 1 Encounter Details Date Type Department Care Team (Latest Contact Info) Description 07/27/2019 9:30 EST Procedure visit [facility] Interventional Pain [address] [place] [address] Catalino Garrett MD [address] [facility] [address] [place] [address] Sacroiliitis (HCC-CMS) (Primary Dx) Social History [...] this encounter Patient Instructions * Patient Instructions* Digna Elmore RN - 07/27/2019 9:30 EST [facility] The [address] [address] Patient Instructions You have had [...] documented in this encounter Progress Notes * Elo Manzo DO - 07/27/2019 0930 EST Patient Name: Tia Spain : 1975 Date of Service: 07/27/2019 Requesting physician: Kj Child Wood Heel Flap Trimmer: Catalino Garrett MD Mat Making Machine Tender: Elo Manzo DO Procedure: Diagnostic and Therapeutic sacroiliac joint injection bilateral Interval History: Patient presents at the request of Kj Child for sacroiliac joint injection. She has a history of right L5-S1 discectomy and decompression (1999) followed by L5-S1 decompression and fusion (2006). She has failed physical therapy and chiropractor care. She states the pain is below her surgicalscar. She points to her bilateral buttock region. 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 Details of the current complaint are [...] taking differently: Take 10 mg by mouth every 6 hours as needed. Hold for now while [...] needed for Nausea 60 Tab 0 ??? rizatriptan (MAXALT) 10 [...] bilateral, positive SUMIT test Assessment: 1. Sacroiliitis ([facility]) Plan: Ms. Tia Spain is a [...] attending, MD Elo Mathis DO Pain Fellow * Jessica Stout MA - 07/27/2019 0930 EST [facility] Rooming Note Does patient have a Locomotive Electrician? yes Is patient NPO? (Solids since midnight [...] of implanted device? Stimulator - back Other: * Catalino Garrett MD - 07/27/2019 0930 EST Attending attestation: I have seen and evaluated the patient with the resident/fellow. I agree withthe findings and plan of care documented in the resident's/fellow's note. In addition, I was present and participating during the entire procedure. Catalino Garrett MD documented in this encounter Plan of Treatment Upcoming Encounters Date Type Department Care Team (Late st Contact Info) Description 04/27/2024 14:30 EDT Telemedicine [facility] - [place] [address] [place], [place] [address] Kj Gloria MD PhD 1 [facility], Level 2 [place] [phone] 04/30/2024 9:30 EDT Office Visit [facility] Interventional Pain [address] [place] [address] Catalino Garrett MD [address] [facility] [address] [place] [phone] 09/18/2024 11:00 EST Office Visit [facility] B[facility]ric Surgery [facility] [address] [place], [place] [address] Allen Thompson PA-C 111 [facility], [address] [place] [phone] documented as of this encounter Visit Diagnoses Diagnosis Sacroiliitis (HCC-CMS)- Primary Sacroiliitis, not elsewhere classified documented in this encounter Administered Medications Inactive Administered Medications - up to 3 most recent administrations Medication Order MAR Action Action Date Dose Rate Site bupivacaine (PF) (MARCAINE) 0.5% injection 6 mL 6 mL, intra-articular, NOW X1, 1 dose, On 07/27/19 at 1000, Routine Given by Other 07/27/2019 9:34 EST 6 mL methylPREDNISolone ACETATE (DEPO-MEDROL) injection 80 mg 80 mg, intra-articular, NOW X1, 1 dose, On 07/27/19 at 1000, Routine Given by Other 07/27/2019 9:33 EST 80 mg documented in this encounter Care Teams Criminal Intelligence Specialist Relationship Specialty Start Date End Date uJma Herrera MD [address] [phone] PCP - General 01/07/19 03/13/21 Juma Herrera MD [address] [phone] 12/08/18 documented as of this encounter
--- OUTSIDE RECORDS SUMMARY | 2024-04-22 23:49 | XMS_ITS | Encounter Summary ---
Author Organization [facility] Address [address] [place] [address] Care Team Providers Care Electrical Panel Builder Name Role Phone Juma Herrera MD Unavailable Juma Herrera MD Primary Care Provider [phone] Reason for Visit * Reason Comments Obesity post op sleeve 4 yea rs 09/05/15 Encounter Details Date Type Department Care Team (Late st Contact Info) Description 09/18/2019 10:45 EST Office Visit [facility] Bariatric Surgery [facility] [address] [place] [address] Allen Thompson, PA-C [address] [place] [address], [facility], [address] [place] [address] Morbid obesity (HCC-CMS) (Primary Dx); S/P laparoscopic sleeve gastrectomy; BMI 30.0-30.9,adult; Postsurgical malabsorption Social History Tobacco Use Types Packs/Day Years [...] kg (201 lb 6.4 oz) 09/18/[address] Height 172.7 cm (5' 7.99) 09/18/2019 1112 [...] this encounter Progress Notes * Allen Thompson PA - 09/18/2019 1045 EST 09/22/2019 Tia Eileen Spain is here in follow-up to her laparoscopic sleeve gastrectomy. The weight trend for the patient is: [...] Morbid obesity with BMI of 45.0-49.9, adult ([facility]) SUBJECTIVE: Emesis: No complaints of emesis Nausea: [...] and Weight Loss: Good, stable. Rare use of PPI for GERD PLAN: 1. Return to clinic [...] 3. Labs today. Seen and discussed with Chemotherapist at this visit. MARGARITA Gomez 09/22/2019 10:32 * Sena Astorga RD - 09/18/2019 1045 EST Nutrition Post Op Visit: Gastric Sleeve Subjective: Patient returns to clinic for post op nutritional counseling following bariatric surgery 4 years ago. Questionnaire Reviewed: Yes Intolerance Episodes: [...] and chips often. She has been trying toeat 3 meals per day and 1-2 snacks. [...] per week. Other: Follow-up in 1 year. documented in this encounter Plan of Treatment Upcoming Encounters Date Type Department Care Team (Late st Contact Info) Description 04/27/2024 14:30 EDT Telemedicine [facility] Neurology - [address] [place] [address] Kj Gloria MD PhD 1 [facility], Level [address] [place] [phone] 04/30/2024 9:30 EDT Office Visit [facility] Interventional Pain [address] [facility] [place] [address] Catalino Garrett MD [address] [facility] [address] [facility] [address] [place] [address] 09/18/2024 11:00 EST Office Visit [facility] Bariatric Surgery - [place] [address] [place], [place] [phone] Allen Thompson PA-C 111 [facility], [facility], [address] [place] [phone] documented as of this encounter Results * (ABNORMAL) VITAMIN D (25,OH) (09/18/2019 12:34 EST) 25OH Vitamin D Tot 18.6(L) 30.0 - 100.0 ng/mL 09/21/2019 12:49 EST [facility] Comment: Vitamin D 25,OH Interpretive Ranges: Deficiency: ??<10.0 ng/mL Insufficiency: ??10.0 - 30.0 ng/mL Sufficiency: ??30.0 - 100.0 ng/mL Toxicity: ??>100.0 ng/mL Blood VENOUS BLOOD / Unknown Venipuncture / Unknown 09/18/2019 12:34 EST 09/18/2019 12:34 EST Allen Thompson PA-C CHEMISTRY & BLOOD GAS ORDERABLES Performing Organization Address City/State/[facility] Co de Phone Number [facility] [address] [place] [address] * THIAMIN (VITAMIN B1), WB (09/18/2019 12:34 EST) Thiamin (Vitamin B1), WB 129 70 - 180 nmol/L 09/22/2019 6:48 EST [facility] Comment: ADDITIONAL INFORMATION This test was developed and its performance characteristics determined by [facility] in a manner consistent with CLIA requirements. This test has not been cleared or approved by the U.S. Food and Drug Administration. Test Performed by: [address] [address] [address] Sec[address]: Andrea López M.D. Ph.D.; CLIA# [id number] Blood VENOUS BLOOD / Unknown Venipuncture / Unknown 09/18/2019 12:34 EST 09/18/2019 12:34 EST Allen AVILA-C CHEMISTRY & BLOOD GAS ORDERABLES Performing Organization Address [facility] Co de Phone Number [facility] [address] [place] [address] * PTH INTACT (09/18/2019 12:34 EST) [facility] Intact PTH 66 19 - 88 pg/mL 09/21/2019 12:12 EST [facility] Blood VENOUS BLOOD / Unknown Venipuncture / Unknown 09/18/2019 12:34 EST 09/18/2019 12:34 EST Allen Thompson PA-C CHEMISTRY & BLOOD GAS ORDERABLES Performing Organization Address City/[facility] Co de Phone Number [facility] [address] [place] [address] * IRON (09/18/2019 12:34 EST) Pathologist [facility] 111 37 - 170 ug/dL 09/18/2019 14:12 EST [facility] Blood VENOUS BLOOD / Unknown Venipuncture / Unknown 09/18/2019 12:34 EST 09/18/2019 12:34 EST Allen [employer] PA-C CHEMISTRY & BLOOD GAS ORDERABLES Performing Organization Address [facility] Co de Phone Number [facility] [address] [place] [address] * FERRITIN (09/18/2019 12:34 EST) Ferritin 32 10 - 291 ng/mL 09/21/2019 11:15 [facility] Blood VENOUS BLOOD / Unknown Venipuncture / Unknown 09/18/2019 12:34 EST 09/18/2019 12:34 EST Allen [facility] PA-C CHEMISTRY & BLOOD GAS ORDERABLES Performing Organization Address [facility] de Phone Number [facility] [address] [place] [address] * COMPLETE BLOOD COUNT (09/18/2019 12:34 EST) WBC 5.51 4.00 - 12.40 K/cmm 09/18/2019 13:59 [facility] RBC 4.80 3.86 - 5.04 M/cmm 09/18/2019 13:59 [facility] Hemoglobin 14.2 11.6 - 15.2 gm/dL 09/18/2019 13:59 [facility] HCT 42.5 34.9 - 44.4 % 09/18/2019 13:59 [facility] MCV 89 81 - 98 fl 09/18/2019 13:59 [facility] MCH 29.6 26.7 - 33.3 pg 09/18/2019 13:59 [facility] MCHC 33.4 32.1 - 35.9 gm/dL 09/18/2019 13:59 [facility] RDW-CV 13.1 <14.7 % 09/18/2019 13:59 [facility] RDW-SD 42.1 <50.4 fl 09/18/2019 13:59 EST [facility] PLT 263 141 - 377 K/cmm 09/18/2019 13:59 EST [facility] MPV 10.0 9.5 - 12.7 fl 09/18/2019 13:59 EST [facility] Blood VENOUS BLOOD / Unknown Venipuncture / Unknown 09/18/2019 12:34 EST 09/18/2019 12:34 EST Allen Thompson PA-C HEMATOLOGY & PF4 ORDERABLES Performing Organization Address City/[facility]/ZIP Co de Phone Number [facility] [address] [place] [address] * CALCIUM (09/18/2019 12:34 EST) Calcium 9.6 8.5 - 10.5 mg/dL 09/18/2019 14:12 EST [facility] Calculated Calcium 9.5 8.5 - 10.5 mg/dL 09/18/2019 14:12 EST [facility] Blood VENOUS BLOOD / Unknown Venipuncture / Unknown 09/18/2019 12:34 EST 09/18/2019 12:34 EST Allen Thompson PA-C CHEMISTRY & BLOOD GAS ORDERABLES Performing Organization Address City/[facility]/ZIP Co de Phone Number [facility] [address] [place] [address] * VITAMIN B12 (09/18/2019 12:34 EST) Vitamin B12 400 211 - 911 pg/mL 09/21/2019 11:15 EST [facility] Blood VENOUS BLOOD / Unknown Venipuncture / Unknown 09/18/2019 12:34 EST 09/18/2019 12:34 EST Allen Kylesy PA-C CHEMISTRY & BLOOD GAS ORDERABLES [facility] [address] [place] [address] documented in this encounter Visit Diagnoses Diagnosis Morbid obesity ([facility])- Primary Morbid obesity S/P laparoscopic sleeve gastrectomy Bariatric surgery status BMI 30.0-30.9,adult Body Mass Index 30.0-30.9, adult Postsurgical malabsorption Other and unspecified postsurgical nonabsorption documented in this encounter Care Teams Electrical Panel Builder Relationship Specialty Start Date End Date Juma Herrera MD [address] [phone] PCP - General 01/07/19 03/13/21 Juma Herrera MD [address] [phone] 12/08/18 documented as of this encounter
--- OUTSIDE RECORDS SUMMARY | 2024-04-22 23:49 | XMS_ITS | Encounter Summary ---
Author Organization [facility] Address [address] [place] [address] Care Team Providers Care Pile Driving Setter Name Role Phone Juma Herrera MD Unavailable Juma Herrera MD Primary Care Provider [phone] Shonda Sánchez GLOVE SEWER Primary Care Provider [phone] [facility] Primary Care Provider [phone] Curtis Burns MD Primary Care Provider [phone] Encounter Details Date Type Department Care Team (Late st Contact Info) Description 11/14/2020 Lab Requisition [facility] Pathology & Laboratory Medicine - [address] [address] Outr Resulting Lab, Provider Social History Tobacco [...] Contact Info) Description 04/27/2024 14:30 EDT Telemedicine [facility] Neurology - [address] [address] Kj Gloria MD PhD 1 [facility] 2 [place] [phone] 04/30/2024 9:30 EDT Office Visit [facility] Interventional Pain [address] [facility] [place] [address] Catalino Garrett MD 62 [facility] [address] [place] [address] 09/18/2024 11:00 EST Office Visit [facility] Bariatric Surgery - [place] [address] [place], [place] [address] Allen Thompson PA-C [address] [place] [address], [address] [place] [phone] documented as of this encounter Procedures Procedure Name Priority Date/Time Associated Diagnosis Comments ZZCOVID-19 TEST [facility] PCR Today 11/14/2020 10:36 EDT COVID-19 TESTING Routine 11/14/2020 10:3 6 EDT documented in this encounter Results * COVID-19 TEST [facility] PCR (11/14/2020 10:36 EDT) Swab ENTIRE NASOPHARYNX / Unknown 11/14/2020 10:36 EDT 11/14/2020 16:56 EDT Provider Outr Resulting Lab MICROBIOLOGY - GENERAL ORDERABLES [facility] [address] [place] [address] * COVID-19 TESTING (11/14/2020 10:36 EDT) COVID-19 rt-PCR Result Negative Negative 11/15/2020 13:39 EDT [facility] Comment: This test has [...] or revoked sooner. Negative results do not preclude 2019-nCoV infection and should not be used as the sole basis for treatment or other patient management decisions. Negative results must be combined with clinical observations, patient history, and epidemiological information. This test was developed and its performance characteristics determined by [facility]. It has not been cleared [...] testing. This test is based on the CDC COVID-19 Emergency Use Authorization (EUA) assay, with minor modification as defined by the FDA Performed on the DPSI 7 Pro RT-PCR System. Performing Lab [facility] 11/15/2020 13:39 EDT [facility] Swab 11/14/2020 10:3 6 EDT 11/14/2020 16:56 EDT Provider Outr Resulting Lab MICROBIOLOGY - GENERAL ORDERABLES [facility] [address] [place] [address] documented in this encounter Visit Diagnoses Not on filedocumented in this encounter Additional Health Concerns Infection Onset Date Last Indicated Resolved Time COVID-19 08/15/2021 08/15/2021 09/04/2021 22:1 5 EST documented as of this encounter Care Teams Pile Driving Setter Relationship Specialty Start Date End Date Juma Herrera MD [address] [place] [address] PCP - General 01/07/19 03/13/21 Shonda Sánchez NP [address] [place] [phone] PCP - General 03/14/21 01/31/22 [facility] [address] [place] [address] PCP - General 02/01/22 07/05/22 Curtis Burns MD [address] [place], [place] [address] PCP - General Emergency Medicine 07/06/22 Juma Herrera MD [address] [place] [address] 12/08/18 documented as of this encounter
--- OUTSIDE RECORDS SUMMARY | 2024-04-22 23:49 | XMS_ITS | Encounter Summary ---
Author Organization [facility] Address [address] [place] [address] Care Team Providers Care Babbitt Spinner Name Role Phone Juma Herrera MD Unavailable Juma Herrera MD Primary Care Provider [phone] Reason for Visit * Reason Comments Pain everywhere * Office Procedure (Routine) - Specialty Report Received Specialty Diagnoses / Procedures Referred By Wili mireles Referred To Contact Pain Medicine Diagnoses Other cervical disc degeneration, unspecified cervical region Sacroiliitis, not elsewhere classified (HCC-CMS) Si joint inj Procedures MA INJECT SI JOINT ARTHRGRPHY&/ANES/STEROID W/IMAGE PROCEDURE SHORT [facility] [address] [place] [address] Catalino Garrett MD [address] [address] Referral ID Status Reason Start Date Expiration Date V isits Requested Visits Authorized [id number] Specialty Report Received 1 1 Encounter Details Date Type Department Care Team (Latest Contact Info) Description 01/12/2021 9:00 EDT Procedure visit [facility] Interventional Pain [address] [place] [address] Catalino Garrett MD [address] [place] [address] Sacroiliitis (HCC-CMS) (Primary Dx); DDD (degenerative disc disease), cervical; Chronic pain of right knee Social History [...] have Coronavirus / COVID-19? No / Unsure 01/12/2021 8:13 EDT documented as of this encounter Last [...] * Patient Instructions* Millie Nunez RN - 01/12/2021 9:00 EDT [facility] [address] [place], [place] [address] Patient Instructions You have had your [...] Progress Notes * Candida Virgen MA - 01/12/2021 0900 EDT [facility] Rooming Note Does patient have a Audio Production Manager? yes Is patient NPO? (Solids since midnight [...] vaccination in the 2 weeks? Coid vaccine intwo weeks? Pt unsure of date Other: * Millie Nunez RN - 01/12/2021 09 EDT ATTENTION: An active Time-Out initiated by [...] was completed. * Catalino Garrett MD - 01/12/2021 0900 EDT Patient Name: Tia Rooney : 1975 Date of Service: 01/12/2021 Requesting physician: Dr. 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 There are no [...] from [facility] and are returning in thesame distribution and quality as previously. We discussed [...] for Nausea (Patient not taking: Reported on 01/12/2021) 60 Tab [...] (monovisc), C6C7 CUAUHTEMOC in 6-8 weeks, b/l SIJinj in 4 months Procedure: The patient gave [...] - - Comment - - Gerry MEHTA documented in this encounter Plan of Treatment Upcoming Encounters Date Type Department Care Team (Late st Contact Info) Description 04/27/2024 14:30 EDT Telemedicine [facility] Neurology - [address] [id number] Kj Gloria MD PhD 1 [facility] [address] [place] [phone] 04/30/2024 9:30 EDT Office Visit [facility] Interventional Pain [address] [place], [place] [phone] Catalino Garrett MD 62 [facility] [address] [place] [address] 09/18/2024 11:00 EST Office Visit [facility] Bariatric Surgery - [place] [address] [place], [place] [address] Allen Thompson PA-C 111 [facility], [address] [place] [address] documented as of this encounter Visit Diagnoses Diagnosis Sacroiliitis ([facility])- Primary Sacroiliitis, not elsewhere classified DDD (degenerative disc disease), cervical Degeneration of cervical intervertebral disc Chronic pain of right knee documented in this encounter Administered Medications Inactive Administered Medications - up to 3 most recent administrations Medication Order MAR Action Action Date Dose Rate Site bupivacaine (PF) (MARCAINE) 0.5% injection 6 mL 6 mL, intra-articular, NOW X1, 1 dose, On Karen 01/12/21 at 0945, Routine Given by Other 01/12/2021 9:16 EDT 6 mL methylPREDNISolone ACETATE (DEPO-MEDROL) injection 80 mg 80 mg, intra-articular, NOW X1, 1 dose, On Karen 01/12/21 at 0945, Routine Given by Other 01/12/2021 9:16 EDT 80 mg documented in this encounter Historical Medications * This list may reflect changes made after this encounter. Medication Sig Dispensed Refills Start Date End Date busPIRone (BUSPAR) 30 mg tablet Take 1 Tablet by mouth 2 times daily. added in this encounter Care Teams Babbitt Spinner Relationship Specialty Start Date End Date Juma Herrera MD [address] [place] [address] PCP - General 01/07/19 03/13/21 Juma Herrera MD [address] [phone] 12/08/18 documented as of this encounter
--- OUTSIDE RECORDS SUMMARY | 2024-04-22 23:49 | XMS_ITS | Encounter Summary ---
Author Organization [facility] Address [address] [place] [address] Care Team Providers Care Site Damage Prevention Technician Name Role Phone Juma Herrera MD Unavailable Juma Herrera MD Primary Care Provider [phone] Encounter Details Date Type Department Care Team (Latest Contact Info) Description 11/06/2019 Travel Social History Tobacco Use [...] Info) Description 04/27/2024 14:30 EDT Telemedicine [facility] Neurology - [address] [place] [address] [place], [place] [address] Kj Gloria MD PhD 1 [facility], [address] [place] [address] 04/30/2024 9:30 EDT Office Visit [facility] Interventional Pain [address] [place], [place] [phone] Catalino Garrett MD [address] [facility] [address] [place] [address] 09/18/2024 11:00 EST Office Visit [facility] Bariatric Surgery [facility] [address] [place], [place] [address] Allen Thompson PA-C 111 [facility], [address] [place] [phone] documented as of this encounter Visit Diagnoses Not on filedocumented in this encounter Care Teams Site Damage Prevention Technician Relationship Specialty Start Date End Date Juma Herrera MD [address] [address] PCP - General 01/07/19 03/13/21 Juma Herrera MD [address] [place] [address] 12/08/18 documented as of this encounter
--- OUTSIDE RECORDS SUMMARY | 2024-04-22 23:49 | XMS_ITS | Encounter Summary ---
Author Organization [facility] Address [address] [place] [address] Care Team Providers Care Tube Worker Name Role Phone Juma Herrera MD Unavailable Juma Herrera MD Primary Care Provider [phone] Reason for Referral * Referral (3 - 10 Business Days) - Closed Specialty Diagnoses / Procedures [facility] Referred To Contact Pain Medicine Diagnoses Back pain, unspecified back location, unspecified back pain laterality, unspecified chronicity Kj Child MD [address] [place] [address] [facility] 62 [facility] [place] [address] Referral ID Status Reason Start Date Expiration Date V isits Requested Visits Authorized [id number] Closed Specialty Services Required 06/04/2019 1 1 Question Answer Reason for Request: Back Pain Has the patient had 6 weeks of conservative treatment such as physicial therapy or NSAIDS? Yes Associated Notes: See Epic What procedure would you like performed? Please specify laterality and levels. L3-L4, L4-L5 facet block Please indicate if this is to be considered diagnostic. Therapeutic and Diagnostic Encounter Details Date Type Department Care Team (Late st Contact Info) Description 06/04/2019 Orders Only [facility] Spine Program - [place] [address] [place] [address] Kj Child MD 192 [place] [address] Back pain, unspecified back location, [...] Description 04/27/2024 14:30 EDT Telemedicine [facility] Neurology - [address] [place] [address] [place], [place] [address] Kj Gloria MD PhD 1 [facility], Level 2 [place] [phone] 04/30/2024 9:30 EDT Office Visit [facility] Interventional Pain 62 [facility] [place] [address] Catalino Garrett MD 62 [facility] [address] [place] [phone] 09/18/2024 11:00 EST Office Visit [facility] Bariatric Surgery - [place] [address] [place] [address] Allen Thompson PA-C [address] [place] [address], [address] [place] [phone] Scheduled Referrals Name Type Priority Associated Diagnoses Orde r Schedule AMB PAIN PROCEDURE Outpatient Referral Routine Back pain, unspecified back location, unspecified back pain laterality, unspecified chronicity Ordered: 06/04/2019 documented as of this encounter Visit Diagnoses Diagnosis Back pain, unspecified back location, unspecified back pain laterality, unspecified chronicity- Primary documented in this encounter Care Teams Tube Worker Relationship Specialty Start Date End Date Juma Herrera MD [address] [phone] PCP - General 01/07/19 03/13/21 Juma Herrera MD [address] [phone] 12/08/18 documented as of this encounter
--- OUTSIDE RECORDS SUMMARY | 2024-04-22 23:49 | XMS_ITS | Encounter Summary ---
Author Organization [facility] Address [address] [place] [address] Care Team Providers Care Home Visitor Home Base Head Start Name Role Phone Juma Herrera MD Unavailable Juma Herrera MD Primary Care Provider [phone] Reason for Referral * Radiology Services (Routine) - New Request Specialty Diagnoses / Procedures Referred By Contac t Referred To Contact Diagnoses Low back pain, unspecified back pain laterality, unspecified chronicity, with sciatica presence unspecified Procedures L SPINE 4 OR MORE VIEWS Kj Child MD [address] [place] [address] Referral ID Status Reason Start Date Expiration Date V isits Requested Visits Authorized [id number] New Request 04/03/2019 1 1 Reason for Visit * Reason Onset Date Comments Back Pain 04/03/2019 Encounter Details Date Type Department Care Team (Late st Contact Info) Description 04/03/2019 Orders Only [facility] Spine Program - [address] [place], [place] [phone] Kj Child MD [address] [place] [address] Low back pain, unspecified back pain [...] Description 04/27/2024 14:30 EDT Telemedicine [facility] Neurology - [address] [id number] Kj Gloria MD PhD 1 [facility] Level [address] [place] [phone] 04/30/2024 9:30 EDT Office Visit [facility] Interventional Pain 62 [facility] [place], [place] [phone] Catalino Garrett MD 62 [facility] [address] [place] [address] 09/18/2024 11:00 EST Office Visit [facility] Bariatric Surgery - [place] [address] [place], [place] [address] Allen Thompson, PALizettC 111 [facility], [facility], Level [address] [place] [phone] documented as of this encounter Procedures Procedure Name Priority Date/Time Associated Diagnosis Comments L SPINE 4 OR MORE VIEWS Routine 04/03/2019 9:05 EDT Low back pain, unspecified back pain laterality, unspecified chronicity, with sciatica presence unspecified documented in this encounter Results * L SPINE 4 OR MORE VIEWS (04/03/2019 9:05 EDT) Anatomical Region Laterality Modality Other 04/03/2019 9:05 EDT 04/06/2019 13:08 EDT Narrative 04/06/2019 13:08 EDT L SPINE 4 OR MORE VIEWS ??04/03/2019 9:05 AM Clinical History/Comments: M54.5-Low back pain-ICD-10; low back pain. Technique: 4 views of the lumbar spine Comparison: Total spine radiographs July 14, 2018. Lumbar spine radiographs May 04, 2014. Findings: Posterior fusion of the spine and laminectomy at L5-S1. No evidence of hardware complication. A spinal nerve stimulator device projects over the lower back. There is slight dextrocurvature of the lumbar spine on the AP view. Minimal anterolisthesis of L3 on L4 and minimal retrolisthesis of L4 on L5 in the neutral position. The anterolisthesis at L3-4 slightly increases in flexion (measuring approximately 4 mm) and reduces to normal alignment in extension. No change in alignment at any other level between flexion and extension. Vertebral body heights are normal. Disc height loss at L5-S1. Surgical clips in the right upper quadrant. Procedure Note Marques Roper MD, MD - 04/06/2019 L SPINE 4 OR MORE VIEWS 04/03/2019 9:05 AM Clinical History/Comments: M54.5-Low back pain-ICD-10; low back pain. Technique: 4 views of the lumbar spine Comparison: Total spine radiographs July 14, 2018. Lumbar spine radiographs May 04, 2014. Findings: Posterior fusion of the spine and laminectomy at L5-S1. No evidence of hardware complication. A spinal nerve stimulator device projects over the lower back. There is slight dextrocurvature of the lumbar spine on the AP view. Minimal anterolisthesis of L3 on L4 and minimal retrolisthesis of L4 on L5 in the neutral position. The anterolisthesis at L3-4 slightly increases in flexion (measuring approximately 4 mm) and reduces to normal alignment in extension. No change in alignment at any other level between flexion and extension. Vertebral body heights are normal. Disc height loss at L5-S1. Surgical clips in the right upper quadrant. Kj Child MD IMG DIAGNOSTIC I MAGING ORDERABLES documented in this encounter Visit Diagnoses Diagnosis Low back pain, unspecified back pain laterality, unspecified chronicity, with sciatica presence unspecified- Primary documented in this encounter Care Teams Home Visitor Home Base Head Start Relationship Specialty Start Date End Date Juma Herrera MD [address] [phone] PCP - General 01/07/19 03/13/21 Juma Herrera MD [address] [phone] 12/08/18 documented as of this encounter
--- OUTSIDE RECORDS SUMMARY | 2024-04-22 23:49 | XMS_ITS | Encounter Summary ---
Author Organization [facility] Address [address] [place] [address] Care Team Providers Care 3D Modeler Name Role Phone Juma Herrera MD Unavailable Juma Herrera MD Primary Care Provider [phone] Reason for Visit * Reason Comments Pain Neck Pain Shoulder Pain Back Pain Encounter Details Date Type Department Care Team (Latest Contact Info) Description 11/06/2019 10:00 EST Procedure visit [facility] Interventional Pain [address] [place] [address] Catalino Garrett MD [address] [facility] [address] [place] [address] Sacroiliitis (HCC-CMS) (Primary Dx); DDD (degenerative disc disease), cervical Social History [...] * Patient Instructions* Shantelle Piedra RN - 11/06/2019 10:00 EST [facility] [address] [address] Patient Instructions You have had your bilateral [...] Progress Notes * Candida Virgen MA - 11/06/2019 1000 EST [place] [facility] Rooming Note Does patient have a Generator Switchboard Operator? yes Is patient NPO? (Solids since [...] any type of implanted device? 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 Also returning is her right neck and [...] and new imaging were reviewed. Injection History: 11/06/2019: sacroiliac [...] by mouth daily (Patient not taking: Reported on11/06/2019) 60 Cap 3 ??? oxyCODONE (ROXICODONE) 5 [...] for Nausea (Patient not taking: Reported on 11/06/2019) 60 Tab [...] - BACK Comment - - Gerry MEHTA * Shantelle Piedra RN - 11/06/2019 1000 EST ATTENTION: This Checklist should be reviewed with the patient, provider, nurse/MA, and interventional radiology technologist in the room prior to local [...] [facility] Neurology - [address] [id number] Kj Gloria MD PhD 1 [facility] Level 2 [place] [phone] 04/30/2024 9:30 EDT Office Visit [facility] Interventional Pain [address] [place] [address] Catalino Garrett MD 62 [facility] [address] [place] [address] 09/18/2024 11:00 EST Office Visit [facility] Bariatric Surgery - [place] [address] [place] [address] Allen Thompson PA-C 111 [facility], [address] [place] [address] documented as of this encounter Visit Diagnoses Diagnosis Sacroiliitis (HCC-CMS)- Primary Sacroiliitis, not elsewhere classified DDD (degenerative disc disease), cervical Degeneration of cervical intervertebral disc documented in this encounter Administered Medications Inactive Administered Medications - up to 3 most recent administrations Medication Order MAR Action Action Date Dose Rate Site bupivacaine (PF) (MARCAINE) 0.5% injection 6 mL 6 mL, intra-articular, NOW X1, 1 dose, On Sat11/06/19 at 1045, Routine Given by Other 11/06/2019 10:18 EST 6 mL methylPREDNISolone ACETATE (DEPO-MEDROL) injection 80 mg 80 mg, intra-articular, NOW X1, 1 dose, On Sat11/06/19 at 1045, Routine Given by Other 11/06/2019 10:18 EST 80 mg documented in this encounter Care Teams 3D Modeler Relationship Specialty Start Date End Date Juma Herrera MD [address] [phone] PCP - General 01/07/19 03/13/21 Juma Herrera MD [address] [phone] 12/08/18 documented as of this encounter
--- OUTSIDE RECORDS SUMMARY | 2024-04-22 23:49 | XMS_ITS | Encounter Summary ---
Author Organization [facility] Address [address] [place] [address] Care Team Providers Care Metal Gauge Maker Name Role Phone Juma Herrera MD Unavailable Juma Herrera MD Primary Care Provider [phone] Encounter Details Date Type Department Care Team (Late st Contact Info) Description 09/18/2019 12:15 EST Phlebotomy Only [facility] COVID Testing [place] [address] [place], [place] [address] [facility] Morbid obesity ([facility]); S/P laparoscopic sleeve gastrectomy; BMI 30.0-30.9,adult; Postsurgical [...] EDT Telemedicine [facility] Neurology - [facility] 1 [place], [place] [address] Kj Gloria MD PhD 1 [facility] [address] 2 [place] [phone] 04/30/2024 9:30 EDT Office Visit [facility] Interventional Pain 62 [facility] [place] [address] Catalino Garrett MD 62 [facility] [address] [place] [address] 09/18/2024 11:00 EST Office Visit [facility] Bariatric Surgery - [place] [address] [place], [place] [address] Allen Thompson, PALizettC 111 [facility], [address] [place] [phone] documented as of this encounter Procedures Procedure Name Priority Date/Time Associated Diagnosis Comments THIAMIN (VITAMIN B1), WB Routine 09/18/2019 12:34 EST Morbid obesity (HCC-CMS) S/P laparoscopic sleeve gastrectomy BMI 30.0-30.9,adult Postsurgical malabsorption VITAMIN D (25,OH) Routine 09/18/2019 12: 34 EST Morbid obesity (HCC-CMS) S/P laparoscopic sleeve gastrectomy BMI 30.0-30.9,adult Postsurgical malabsorption PTH INTACT Routine 09/18/2019 12:34 EST Morbid obesity (HCC-CMS) S/P laparoscopic sleeve gastrectomy BMI 30.0-30.9,adult Postsurgical malabsorption COMPLETE BLOOD COUNT Routine 09/18/2019 12:34 EST Morbid obesity (HCC-CMS) S/P laparoscopic sleeve gastrectomy BMI 30.0-30.9,adult Postsurgical malabsorption IRON Routine 09/18/2019 12:34 EST Morbid obesity (HCC-CMS) S/P laparoscopic sleeve gastrectomy BMI 30.0-30.9,adult Postsurgical malabsorption FERRITIN Routine 09/18/2019 12:34 EST Morbid obesity (HCC-CMS) S/P laparoscopic sleeve gastrectomy BMI 30.0-30.9,adult Postsurgical malabsorption VITAMIN B12 Routine 09/18/2019 12:34 EST Morbid obesity (HCC-CMS) S/P laparoscopic sleeve gastrectomy BMI 30.0-30.9,adult Postsurgical malabsorption CALCIUM Routine 09/18/2019 12:34 EST Morbid obesity (HCC-CMS) S/P laparoscopic sleeve gastrectomy BMI 30.0-30.9,adult Postsurgical malabsorption documented in this encounter Results * (ABNORMAL) VITAMIN D (25,OH) (09/18/2019 12:34 EST) 25OH Vitamin D Tot 18.6(L) 30.0 - 100.0 ng/mL 09/21/2019 12:49 EST [facility] Comment: Vitamin D 25,OH Interpretive Ranges: Deficiency: ??<10.0 ng/mL Insufficiency: ??10.0 - 30.0 ng/mL Sufficiency: ??30.0 - 100.0 ng/mL Toxicity: ??>100.0 ng/mL Blood VENOUS BLOOD / Unknown Venipuncture / Unknown 09/18/2019 12:34 EST 09/18/2019 12:34 EST Allen Thompson PA-C CHEMISTRY & BLOOD GAS ORDERABLES Performing Organization Address City/[facility]/ZIP Co de Phone Number [facility] [address] [place] [address] * THIAMIN (VITAMIN B1), WB (09/18/2019 12:34 EST) Thiamin (Vitamin B1), WB 129 70 - 180 nmol/L 09/22/2019 6:48 EST [facility] Comment: ADDITIONAL INFORMATION This test was developed and its performance characteristics determined by [facility] in a manner consistent with CLIA requirements. This test has not been cleared or approved by the U.S. Food and Drug Administration. Test Performed by: [facility] - [address] [address] All Source Intelligence Analyst: Andrea López M.D. Ph.D.; CLIA# [id number] Blood VENOUS BLOOD / Unknown Venipuncture / Unknown 09/18/2019 12:34 EST 09/18/2019 12:34 EST Allen Thompson PA-C CHEMISTRY & BLOOD GAS ORDERABLES Performing Organization Address [facility] Co de Phone Number [facility] [address] [place] [address] * PTH INTACT (09/18/2019 12:34 EST) Intact PTH 66 19 - 88 pg/mL 09/21/2019 12:12 EST [facility] Blood VENOUS BLOOD / Unknown Venipuncture / Unknown 09/18/2019 12:34 EST 09/18/2019 12:34 EST Allen Bennett-Radha PA-C CHEMISTRY & BLOOD GAS ORDERABLES Performing Organization Address City/[facility] Co de Phone Number [facility] [address] [place] [address] * IRON (09/18/2019 12:34 EST) Iron 111 37 - 170 ug/dL 09/18/2019 14:12 [facility] Blood VENOUS BLOOD / Unknown Venipuncture / Unknown 09/18/2019 12:34 EST 09/18/2019 12:34 EST Allen Marroquiner-[employer] PA-C CHEMISTRY & BLOOD GAS ORDERABLES Performing Organization Address [facility] Co de Phone Number [facility] [address] [place] [address] * FERRITIN (09/18/2019 12:34 EST) Ferritin 32 10 - 291 ng/mL 09/21/2019 11:15 [facility] Blood VENOUS BLOOD / Unknown Venipuncture / Unknown 09/18/2019 12:34 EST 09/18/2019 12:34 EST Allen Bennett-[employer] PA-C CHEMISTRY & BLOOD GAS ORDERABLES Performing Organization Address [facility] de Phone Number [facility] [address] [place] [address] * COMPLETE BLOOD COUNT (09/18/2019 12:34 EST) WBC 5.51 4.00 - 12.40 K/cmm 09/18/2019 13:59 [facility] RBC 4.80 3.86 - 5.04 M/cmm 09/18/2019 13:59 [facility] Hemoglobin 14.2 11.6 - 15.2 gm/dL 09/18/2019 13:59 [facility] HCT 42.5 34.9 - 44.4 % 09/18/2019 13:59 [facility] MCV 89 81 - 98 fl 09/18/2019 13:59 [facility] MCH 29.6 26.7 - 33.3 pg 09/18/2019 13:59 [facility] MCHC 33.4 32.1 - 35.9 gm/dL 09/18/2019 13:59 [facility] RDW-CV 13.1 <14.7 % 09/18/2019 13:59 [facility] RDW-SD 42.1 <50.4 fl 09/18/2019 13:59 [facility] PLT 263 141 - 377 K/cmm 09/18/2019 13:59 [facility] MPV 10.0 9.5 - 12.7 fl 09/18/2019 13:59 [facility] Blood VENOUS BLOOD / Unknown Venipuncture / Unknown 09/18/2019 12:34 EST 09/18/2019 12:34 EST Allen AVILA-Khushbu HEMATOLOGY & PF4 ORDERABLES Performing Organization Address City/[facility] Co de Phone Number [facility] [address] [place] [address] * CALCIUM (09/18/2019 12:34 EST) Calcium 9.6 8.5 - 10.5 mg/dL 09/18/2019 14:12 [facility] Calculated Calcium 9.5 8.5 - 10.5 mg/dL 09/18/2019 14:12 [facility] Blood VENOUS BLOOD / Unknown Venipuncture / Unknown 09/18/2019 12:34 EST 09/18/2019 12:34 EST Allen AVILA-Khushbu CHEMISTRY & BLOOD GAS ORDERABLES [facility] [address] [place] [address] * VITAMIN B12 (09/18/2019 12:34 EST) Vitamin B12 400 211 - 911 pg/mL 09/21/2019 11:15 [facility] Blood VENOUS BLOOD / Unknown Venipuncture / Unknown 09/18/2019 12:34 EST 09/18/2019 12:34 EST Allen AVILA-C CHEMISTRY & BLOOD GAS ORDERABLES [facility] [address] [place] [address] documented in this encounter Visit Diagnoses Diagnosis Morbid obesity ([facility]) Morbid obesity S/P laparoscopic sleeve gastrectomy Bariatric surgery status BMI 30.0-30.9,adult Body Mass Index 30.0-30.9, adult Postsurgical malabsorption Other and unspecified postsurgical nonabsorption documented in this encounter Care Teams Metal Gauge Maker Relationship Specialty Start Date End Date Juma Herrera MD [address] [id number] PCP - General 01/07/19 03/13/21 Juma Herrera MD [address] [phone] 12/08/18 documented as of this encounter
--- OUTSIDE RECORDS SUMMARY | 2024-04-22 23:49 | XMS_ITS | Encounter Summary ---
Author Organization [facility] Address [address] [place] [address] Care Team Providers Care Reception Interviewer Name Role Phone Juma Herrera MD Unavailable Juma Herrera MD Primary Care Provider [phone] Encounter Details Date Type Department Care Team (Latest Contact Info) Description 11/17/2020 7:36 EDT - 11/17/2020 23:59 EDT Hospital Encounter [facility] Xray [address] [place] [address] Discharge Disposition: Home or Self [...] D3 (VITAMIN D-3 ORAL) Take by mouth. cortisone acetate (CORTISONE IM) Inject 1 Dose [...] 14:30 EDT Telemedicine [facility] Neurology - [address] [address] Kj Gloria MD PhD 1 [facility] Level [address] [place] [address] 04/30/2024 9:30 EDT Office Visit [facility] Interventional Pain [address] [place], [place] [phone] Catalino Garrett MD 62 [facility] [address] [place] [address] 09/18/2024 11:00 EST Office Visit [facility] Bariatric Surgery [address] [address] Allen Thompson PA-C 111 [facility], [address] [place] [phone] documented as of this encounter Procedures Procedure Name Priority Date/Time Associated Diagnosis Comments PAIN CLINIC [place] CERVICAL INJECTION Routine 11/17/2020 9:37 EDT documented in this encounter Results * PAIN CLINIC [place] CERVICAL INJECTION (11/17/2020 9:37 EDT) Narrative 11/17/2020 9:38 EDT This is a non-reportable exam. Catalino Garrett MD IMG OTHER IMAGING OR DERABLES documented in this encounter Visit Diagnoses Not on filedocumented in this encounter Care Teams Reception Interviewer Relationship Specialty Start Date End Date Juma Herrera MD [address] [phone] PCP - General 01/07/19 03/13/21 Juma Herrera MD [address] [phone] 12/08/18 documented as of this encounter
--- OUTSIDE RECORDS SUMMARY | 2024-04-22 23:49 | XMS_ITS | Encounter Summary ---
Author Organization [facility] Address [address] [place] [address] Care Team Providers Care Nursing Home Physician Name Role Phone Juma Herrera MD Unavailable Juma Herrera MD Primary Care Provider [phone] Reason for Referral * Radiology Services (Routine/Next Available) - New Request Specialty Diagnoses / Procedures [facility] Referred To Contact Diagnoses Right shoulder pain, unspecified chronicity Procedures [facility] US SHOULDER Starr Hart PA-C [address] [place] [address] Referral ID Status Reason Start Date Expiration Date V isits Requested Visits Authorized [id number] New Request 03/03/2019 1 1 Encounter Details Date Type Department Care Team (Late st Contact Info) Description 03/03/2019 Orders Only [facility] Sports Medicine Program - [place] [address] [place] [address] Starr Hart PA-C Right shoulder [...] Description 04/27/2024 14:30 EDT Telemedicine [facility] Neurology - [address] [address] Kj Gloria MD PhD 1 [facility] 2 [place] [phone] 04/30/2024 9:30 EDT Office Visit [facility] Interventional Pain 62 [facility] [place] [address] Catalino Garrett MD 62 [facility] [address] [place] [address] 09/18/2024 11:00 EST Office Visit [facility] Bariatric Surgery [facility] [address] [place] [address] Allen Thompson PA-C 111 [facility], [address] [place] [phone] Pending Results Name Type Priority Associated Diagnoses Date /Time MSK US SHOULDER Imaging Routine Right shoulder pain, unspecified chronicity 03/03/2019 13:15 EDT documented as of this encounter Visit Diagnoses Diagnosis Right shoulder pain, unspecified chronicity- Primary documented in this encounter Care Teams Nursing Home Physician Relationship Specialty Start Date End Date Juma Herrera MD [address] [phone] PCP - General 01/07/19 03/13/21 Juma Herrera MD [address] [phone] 12/08/18 documented as of this encounter
--- OUTSIDE RECORDS SUMMARY | 2024-04-22 23:49 | XMS_ITS | Encounter Summary ---
Author Organization [facility] Address [address] [place] [address] Care Team Providers Care Typewriter Aligner Name Role Phone Juma Herrera MD Unavailable Juma Herrera MD Primary Care Provider [phone] Shonda Sánchez FOOD SERVICE ASSOCIATE Primary Care Provider [phone] Reason for Visit * Reason Onset Date Comments New Patient Visit 11/14/2020 Zoom Encounter Details Date Type Department Care Team (Late st Contact Info) Description 11/14/2020 Telephone [facility] Neurology - [address] [id number] Kj Gloria MD PhD [address] [place] [address] 2 [place] [phone] New Patient Visit (Zoom) Social History Tobacco Use Types Packs/Day Years [...] * Telephone Encounter - Candida Hankins - 11/14/2020 1046 EDT Spoke to yadira Weber NPV via TelevDwollao with Dr. Gloria on 02/21/21 at 9 AM. Email - [email or web address] [phone] Meeting ID: [id number] Password: [id number] documented in this encounter Plan of Treatment Upcoming Encounters Date Type Department Care Team (Late st Contact Info) Description 04/27/2024 14:30 EDT Telemedicine [facility] Neurology - [address] [address] Kj Gloria MD PhD 1 [facility], Level 2 [place] [phone] 04/30/2024 9:30 EDT Office Visit [facility] Interventional Pain 62 [facility] [place], [place] [phone] Catalino Garrett MD 62 [facility] [address] [place] [address] 09/18/2024 11:00 EST Office Visit [facility] Bariatric Surgery - [place] [address] [place], [place] [address] Allen Thompson PA-C 111 [facility], Level 5 [place] [phone] documented as of this encounter Visit Diagnoses Not on filedocumented in this encounter Care Teams Typewriter Aligner Relationship Specialty Start Date End Date Juma Herrera MD [address] [id number] PCP - General 01/07/19 03/13/21 Shonda Sánchez NP [address] [place] [address] [address] [place] [phone] PCP - General 03/14/21 01/31/22 Juma Herrera MD [address] [phone] 12/08/18 documented as of this encounter
--- OUTSIDE RECORDS SUMMARY | 2024-04-22 23:49 | XMS_ITS | Encounter Summary ---
Author Organization [facility] Address [address] [place] [address] Care Team Providers Care Computer Field Technician Name Role Phone Juma Herrera MD Unavailable Juma Herrera MD Primary Care Provider [phone] Reason for Visit * Reason Onset Date Comments Appointment Related 12/14/2019 Encounter Details Date Type Department Care Team (Late st Contact Info) Description 12/14/2019 Telephone [facility] Interventional Pain 62 [facility] [place] [address] Catalino Garrett MD [address] [facility] [address] [place] [address] Appointment Related Social History Tobacco [...] * Telephone Encounter - Mica Souza - 12/14/2019 1102 EDT Patient was scheduled for Cervical Epidural Steroid Injection with Dr Garrett on 01/07/2020. Spoke with patient 12/14/2019, she was understanding and will be waiting for a call when we resume scheduling. Patient???s appointment has been canceled, and a ???Recall?? 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 documented in this encounter Plan of Treatment Upcoming Encounters Date Type Department Care Team (Late st Contact Info) Description 04/27/2024 14:30 EDT Telemedicine [facility] Neurology - [address] [id number] Kj Gloria MD PhD 1 [facility] Level 2 [place] [phone] 04/30/2024 9:30 EDT Office Visit [facility] Interventional Pain 62 [facility] [place], [place] [phone] Catalino Garrett MD 62 [facility] [address] [place] [address] 09/18/2024 11:00 EST Office Visit [facility] Bariatric Surgery - [place] [address] [place] [address] Allen Thompson PA-C [address] [place] [address], [address] [place] [address] documented as of this encounter Visit Diagnoses Not on filedocumented in this encounter Care Teams Computer Field Technician Relationship Specialty Start Date End Date Juma Herrera MD [address] [phone] PCP - General 01/07/19 03/13/21 Juma Herrera MD [address] [phone] 12/08/18 documented as of this encounter
--- OUTSIDE RECORDS SUMMARY | 2024-04-22 23:49 | XMS_ITS | Encounter Summary ---
Author Organization [facility] Address [address] [place] [address] Care Team Providers Care Airborne Electronics Analyst Name Role Phone Juma Herrera MD Unavailable Juma Herrera MD Primary Care Provider [phone] Encounter Details Date Type Department Care Team (Latest Contact Info) Description 07/27/2019 9:20 EST - 07/28/2019 23:59 EST Hospital Encounter [facility] Xray [address] [place], [place] [phone] Discharge Disposition: Home or Self Care Social [...] Description 04/27/2024 14:30 EDT Telemedicine [facility] Neurology - S [place] 1 [place], [place] [address] Kj Gloria MD PhD 1 [facility], Level 2 [place] [phone] 04/30/2024 9:30 EDT Office Visit [facility] Interventional Pain 62 [facility] [place], [place] [phone] Catalino Garrett MD [address] [facility] [address] [place] [address] 09/18/2024 11:00 EST Office Visit [facility] Bariatric Surgery - [place] [address] [place], [place] [address] Allen Thompson PA-C 111 [facility], Level 5 [place] [phone] documented as of this encounter Procedures Procedure Name Priority Date/Time Associated Diagnosis Comments PAIN CLINIC FL LUMBAR INJECTION Routine 07/27/2019 9:52 EST documented in this encounter Results * PAIN CLINIC FL LUMBAR INJECTION (07/27/2019 9:52 EST) Narrative 07/27/2019 9:52 EST This is a non-reportable exam. Catalino Garrett MD IMG OTHER IMAGING OR DERABLES documented in this encounter Visit Diagnoses Not on filedocumented in this encounter Care Teams Airborne Electronics Analyst Relationship Specialty Start Date End Date Juma Herrera MD [address] [facility] [place] [phone] PCP - General 01/07/19 03/13/21 Juma Herrera MD [address] [facility] [place] [phone] 12/08/18 documented as of this encounter
--- OUTSIDE RECORDS SUMMARY | 2024-04-22 23:49 | XMS_ITS | Encounter Summary ---
Author Organization [facility] Address [address] [place] [address] Care Team Providers Care Supervisor Wheel Shop Name Role Phone Juma Herrera MD Unavailable Juma Herrera MD Primary Care Provider [phone] Reason for Visit * Reason Onset Date Comments Appointment Related 10/30/2019 Encounter Details Date Type Department Care Team (Late st Contact Info) Description 10/30/2019 Telephone [facility] Interventional Pain 62 [place] [address] Catalino Garrett MD [address] [address] [place] [address] Appointment Related Social History Tobacco [...] * Telephone Encounter - Mica Souza - 11/02/2019 1051 EST No ABN needed for this appointment. * Telephone Encounter - Abdiel Chandler - 10/30/2019 1432 EST Reason For Encounter/Call: Appointment Call Details (Specific Reasons/Concerns/Details): Referral came in for Tia, which prompted me toenter a new MRN as her name was different. We schedule her next injection as shown below. She confirmed date/time/location/protocols Last Visit with Our Clinic: 07/27/2019 Next Visit (Return Date/Time/Provider) 11/06/2019 Dr Garrett Prior Authorization in Place - Specify (Yes or No): Please check for ABN for Repeat Bilatearl SI Joint Injection Call Patient Back - Specify (Yes or No): Josey Chandler - OSS 10/30/2019 14:32 documented in this encounter Plan of Treatment Upcoming Encounters Date Type Department Care Team (Late st Contact Info) Description 04/27/2024 14:30 EDT Telemedicine [facility] Neurology - [address] [place] 1 [place], [place] [address] Kj Gloria MD PhD 1 [facility] Level 2 [place] [phone] 04/30/2024 9:30 EDT Office Visit [facility] Interventional Pain 62 [place] [address] Catalino Garrett MD [address] [facility] [address] [place] [phone] 09/18/2024 11:00 EST Office Visit [facility] Bariatric Surgery - [place] [address] [place] [address] Allen Thompson PA-C 111 [facility], [facility], Level 5 [place] [phone] documented as of this encounter Visit Diagnoses Not on filedocumented in this encounter Care Teams Supervisor Wheel Shop Relationship Specialty Start Date End Date Juma Herrera MD [address] [phone] PCP - General 01/07/19 03/13/21 Juma Herrera MD [address] [phone] 12/08/18 documented as of this encounter
--- OUTSIDE RECORDS SUMMARY | 2024-04-22 23:49 | XMS_ITS | Encounter Summary ---
Author Organization [facility] Address [address] [place] [address] Care Team Providers Care Certified Medical Asst Name Role Phone Juma Herrera MD Unavailable Juma Herrera MD Primary Care Provider [phone] Reason for Visit * Reason Onset Date Comments Immunizations 10/31/2020 Encounter Details Date Type Department Care Team (Late st Contact Info) Description 10/31/2020 Telephone [facility] Interventional Pain 62 [place] [address] Catalino Garrett MD [address] [place] [address] Immunizations Social History Tobacco Use Types Packs/Day Years [...] encounter Miscellaneous Notes * Telephone Encounter - Jenni Barajas MA - 10/31/2020 1517 EST Called patient to verify whether or not she have received any vaccinations in the past two weeks orplan on receiving any vaccinations in the next two weeks. Patient declines. documented in this encounter Plan of Treatment Upcoming Encounters Date Type Department Care Team (Late st Contact Info) Description 04/27/2024 14:[address] [facility] Neurology - [facility] 1 [place], [place] [address] Kj Gloria MD PhD 1 [facility] Level 2 [place] [phone] 04/30/2024 9:30 EDT Office Visit [facility] Interventional Pain 62 [facility] [place], [place] [phone] Catalino Garrett MD 62 [facility] [address] [place] [address] 09/18/2024 11:[address] [facility] Bariatric Surgery - [place] [address] [place], [place] [address] Allen Thompson PA-C 111 [facility], Level 5 [place] [phone] documented as of this encounter Visit Diagnoses Not on filedocumented in this encounter Care Teams Certified Medical Asst Relationship Specialty Start Date End Date Juma Herrera MD [address] [phone] PCP - General 01/07/19 03/13/21 Juma Herrera MD [address] [phone] 12/08/18 documented as of this encounter
--- OUTSIDE RECORDS SUMMARY | 2024-04-22 23:49 | XMS_ITS | Encounter Summary ---
Author Organization [facility] Address [address] [place] [address] Care Team Providers Care Auto Glass Worker Name Role Phone Juma Herrera MD Unavailable Juma Herrera MD Primary Care Provider [phone] Encounter Details Date Type Department Care Team (Latest Contact Info) Description 01/12/2021 Travel Social History Tobacco Use [...] 8:13 EDT documented as of this encounter Functional [...] 14:30 EDT Telemedicine [facility] Neurology - [facility] - [place] 1 [place], [place] [address] Kj Gloria MD PhD 1 [facility] Level 2 [place] [phone] 04/30/2024 9:30 EDT Office Visit [facility] Interventional Pain 62 [place], [place] [phone] Catalino Garrett MD 62 [facility] [address] [place] [address] 09/18/2024 11:00 EST Office Visit [facility] Bariatric Surgery [facility] 353 [place], [place] [address] Allen Thompson PA-C 111 [facility], Level [address] [place] [phone] documented as of this encounter Visit Diagnoses Not on filedocumented in this encounter Care Teams Auto Glass Worker Relationship Specialty Start Date End Date Juma Herrera MD [address] [phone] PCP - General 01/07/19 03/13/21 Juma Herrera MD [address] [phone] (work) 12/08/18 documented as of this encounter
--- OUTSIDE RECORDS SUMMARY | 2024-04-22 23:49 | XMS_ITS | Encounter Summary ---
Author Organization [facility] Address [address] [place] [address] Care Team Providers Care Segmental Paver Installer Name Role Phone Juma Herrera MD Unavailable Juma Herrera MD Primary Care Provider [phone] Shonda Sánchez GENERAL MAGISTRATE Primary Care Provider [phone] Reason for Visit * Reason Onset Date Comments Appointment Related 06/13/2020 Encounter Details Date Type Department Care Team (Late st Contact Info) Description 06/13/2020 Telephone [facility] Interventional Pain 62 [facility] [place] [address] Catalino Garrett MD 62 [facility] [address] [place] [address] Appointment Related Social History Tobacco [...] encounter Miscellaneous Notes * Telephone Encounter - Ermelinda Fisher - 06/13/2020 1346 EDT Patient called to see if they could schedule their appointment as they were postponed due to COVID-19. Patient is scheduled for 11/[address] Garrett. COVID-19 process/screening and safety protocols as well medications to stop and NPO status have been confirmed by the patient. documented in this encounter Plan of Treatment Upcoming Encounters Date Type Department Care Team (Late st Contact Info) Description 04/27/2024 14:30 EDT Telemedicine [facility] Neurology - [address] [id number] Kj Gloria MD PhD 1 [facility] 2 [place] [address] 04/30/2024 9:30 EDT Office Visit [facility] Interventional Pain 62 [facility] [place], [place] [phone] Catalino Garrett MD [address] [facility] [address] [place] [address] 09/18/2024 11:00 EST Office Visit [facility] Bariatric Surgery - [place] [address] [place] [address] Allen Thompson PA-C [address] [place] [address], [facility] 5 [place] [phone] documented as of this encounter Visit Diagnoses Not on filedocumented in this encounter Care Teams Segmental Paver Installer Relationship Specialty Start Date End Date Juma Herrera MD [address] [phone] PCP - General 01/07/19 03/13/21 Shonda Sánchez NP [address] [place] [address] [address] [place] [phone] PCP - General 03/14/21 01/31/22 Juma Herrera MD [address] [phone] 12/08/18 documented as of this encounter
--- OUTSIDE RECORDS SUMMARY | 2024-04-22 23:49 | XMS_ITS | Encounter Summary ---
Author Organization [facility] Address [address] [place] [address] Care Team Providers Care Shirrer Name Role Phone Juma Herrera MD Unavailable Juma Herrera MD Primary Care Provider [phone] Encounter Details Date Type Department Care Team (Latest Contact Info) Description 01/12/2021 7:40 EDT - 01/12/2021 23:59 EDT Hospital Encounter [facility] Xray [address] [place] [address] Discharge Disposition: Home or Self [...] EDT Telemedicine [facility] Neurology - [address] [id number] Kj Gloria MD PhD 1 [facility] Level 2 [place] [phone] 04/30/2024 9:30 EDT Office Visit [facility] Interventional Pain 62 [place], [place] [phone] Catalino Garrett MD 62 [facility] [address] [place] [address] 09/18/2024 11:00 EST Office Visit [facility] Bariatric Surgery - [place] [address] [place] [address] Allen Thompson PA-C 111 [facility], Level 5 [place] [phone] documented as of this encounter Procedures Procedure Name Priority Date/Time Associated Diagnosis Comments PAIN CLINIC FL SACROILIAC JOINT INJECTION Routine 01/12/2021 9:25 EDT documented in this encounter Results * PAIN CLINIC FL SACROILIAC JOINT INJECTION (01/12/2021 9:25 EDT) Narrative 01/12/2021 9:25 EDT This is a non-reportable exam. Catalino Garrett MD IMG OTHER IMAGING OR DERABLES documented in this encounter Visit Diagnoses Not on filedocumented in this encounter Care Teams Shirrer Relationship Specialty Start Date End Date Juma Herrera MD [address] [phone] PCP - General 01/07/19 03/13/21 Juma Herrera MD [address] [phone] 12/08/18 documented as of this encounter
--- OUTSIDE RECORDS SUMMARY | 2024-04-22 23:49 | XMS_ITS | Encounter Summary ---
Author Organization [facility] Address [address] [place] [address] Care Team Providers Care Piping Drafter Name Role Phone Juma Herrera MD Unavailable Juma Herrera MD Primary Care Provider [phone] Encounter Details Date Type Department Care Team (Latest Contact Info) Description 12/19/2020 Travel Social History Tobacco Use [...] EDT Telemedicine [facility] Neurology - [facility] 1 [place], [place] [address] Kj Gloria MD PhD 1 [facility] Level 2 [place] [phone] 04/30/2024 9:30 EDT Office Visit [facility] Interventional Pain 62 [place], [place] [phone] Catalino Garrett MD 62 [facility] [address] [place] [address] 09/18/2024 11:00 EST Office Visit [facility] Bariatric Surgery [facility] 353 [place], [place] [address] Allen Thompson PA-C 111 [facility], Level 5 [place] [address] documented as of this encounter Visit Diagnoses Not on filedocumented in this encounter Care Teams Piping Drafter Relationship Specialty Start Date End Date Juma Herrera MD [address] [phone] PCP - General 01/07/19 03/13/21 Juma Herrera MD [address] [phone] (work) 12/08/18 documented as of this encounter
--- OUTSIDE RECORDS SUMMARY | 2024-04-22 23:50 | XMS_ITS | Encounter Summary ---
Author Organization [facility] Address [address] [place] [address] Care Team Providers Care Cigarette Making Machine Catcher Name Role Phone Juma Herrera MD Primary Care Provider [phone] Reason for Referral * Radiology Services (Routine) - New Request Specialty Diagnoses / Procedures Referred By Contac t Referred To Contact Diagnoses Bilateral low back pain, unspecified chronicity, with sciatica presence unspecified Procedures ENTIRE SPINE 2-3 VIEWS Starr Hart PA-C [address] [place] [address] Referral ID Status Reason Start Date Expiration Date V isits Requested Visits Authorized [id number] New Request 06/10/2018 1 1 Encounter Details Date Type Department Care Team (Late st Contact Info) Description 06/09/2018 Orders Only [facility] Sports Medicine Program [place] [address] Starr Hart PA-C Bilateral low back pain, unspecified chronicity, with sciatica presence unspecified (Primary [...] a physical, menta l, or emotional condition, do you have difficulty doing errands alone such as visiting a doctor's office or shopping? (15 years old or older) No 09/05/2015 Cognitive Status Response Date of Assessm ent Because of a physical, menta l, or emotional condition, do you have serious difficulty concentrating, remembering, or making decisions? (5 years old or older) No 09/05/2015 documented as of this encounter Plan of Treatment Upcoming Encounters Date Type Department Care Team (Late st Contact Info) Description 04/27/2024 14:30 EDT Telemedicine [facility] Neurology - [address] [address] Kj Gloria MD PhD 1 [facility] 2 [place] [phone] 04/30/2024 9:30 EDT Office Visit [facility] Interventional Pain 62 [facility] [place] [address] Catalino Garrett MD 62 [facility] [address] [place] [address] 09/18/2024 11:00 EST Office Visit [facility] Bariatric Surgery [facility] [address] [place] [address] Allen Thompson PA-C 111 [facility], Level 5 [place] [address] documented as of this encounter Procedures Procedure Name Priority Date/Time Associated Diagnosis Comments ENTIRE SPINE 2-3 VIEWS Routine 07/14/2018 7:33 EST Bilateral low back pain, unspecified chronicity, with sciatica presence unspecified documented in this encounter Results * ENTIRE SPINE 2-3 VIEWS (07/14/2018 7:33 EST) Anatomical Region Laterality Modality Other 07/14/2018 7:33 EST 07/15/2018 15:39 EST Narrative 07/15/2018 15:39 EST Plain film entire spine July 14, 2018 Comparison: ??Lumbar spine May 04, 2014 History: 43-year-old female with neck pain Findings: Frontal and lateral views the entire spine reveal surgical changes of decompression with posterior metallic and osseous fixation at L5-S1. Subcutaneous stimulator is seen superficial to the sacrum. Leads extend to L5-S1. Surgical changes are also seen for C6-C7 ACDF. Mild degenerative changes are noted in the cervical spine. No significant scoliotic curvature is seen. Surgical clips are noted in the right upper quadrant. Impression: 1. Spinal stimulator with leads extending to the level of L5-S1. 2. C6-C7 ACDF without evidence of hardware failure. Procedure Note Jun Collazo MD - 07/15/2018 Plain film entire spine July 14, 2018 Comparison: Lumbar spine May 04, 2014 History: 43-year-old female with neck pain Findings: Frontal and lateral views the entire spine reveal surgical changes of decompression with posterior metallic and osseous fixation at L5-S1. Subcutaneous stimulator is seen superficial to the sacrum. Leads extend to L5-S1. Surgical changes are also seen for C6-C7 ACDF. Mild degenerative changes are noted in the cervical spine. No significant scoliotic curvature is seen. Surgical clips are noted in the right upper quadrant. Impression: 1. Spinal stimulator with leads extending to the level of L5-S1. 2. C6-C7 ACDF without evidence of hardware failure. Starr Hart PA-C IMG DIAGNOSTIC PARMINDER GING ORDERABLES documented in this encounter Visit Diagnoses Diagnosis Bilateral low back pain, unspecified chronicity, with sciatica presence unspecified- Primary documented in this encounter Care Teams Cigarette Making Machine Catcher Relationship Specialty Start Date End Date Juma Herrera MD [address] [place] [phone] PCP - General 09/25/12 12/07/18 documented as of this encounter
--- OUTSIDE RECORDS SUMMARY | 2024-04-22 23:50 | XMS_ITS | Encounter Summary ---
Author Organization [facility] Address [address] [place] [address] Care Team Providers Care Leach Cell Operator Name Role Phone Juma Herrera MD Primary Care Provider [phone] Reason for Visit * Reason Onset Date Comments Advice Only 09/07/2015 Encounter Details Date Type Department Care Team (Late st Contact Info) Description 09/07/2015 Telephone [facility] Bariatric Surgery - [address] [address] Lux Dumont, RD [address] [place] [phone] Advice Only Social History Tobacco Use Types Packs/Day Years Used Date Smoking Tobacco: Former Cigarettes Q uit: 01/13/2009 Alcohol Use Standard Drinks/Week Comments Yes 0 [...] No 09/05/2015 documented as of this encounter Miscellaneous Notes * Telephone Encounter - Lux Dumont, THOMAS - [...] shakes on her pre-op liquid diet and plansto continue those shakes on her post- op full liquid diet. Reviewed diet progression and need for atleast 32-48 oz of fluids a day. Call this typewriter tester with any questions/concerns. Return to Clinic:09/14/[address] 09/07/2015 8:04 documented in this encounter Plan of Treatment Upcoming Encounters Date Type Department Care Team (Late st Contact Info) Description 04/27/2024 14:30 EDT Telemedicine [facility] Neurology - S [address] [phone] Kj Gloria MD PhD 1 [facility] Level 2 [place] [phone] 04/30/2024 9:30 EDT Office Visit [facility] Interventional Pain [address] [facility] [place], [place] [phone] Catalino Garrett MD 62 [facility] [address] [place] [address] 09/18/2024 11:00 EST Office Visit [facility] Bariatric Surgery - [place] [address] [place] [address] Allen Thompson, PA-C 111 [facility], [facility] 5 [place] [address] documented as of this encounter Visit Diagnoses Not on filedocumented in this encounter Care Teams Leach Cell Operator Relationship Specialty Start Date End Date Juma Herrera MD [address] [facility] [phone] PCP - General 09/25/12 12/07/18 documented as of this encounter
--- OUTSIDE RECORDS SUMMARY | 2024-04-22 23:50 | XMS_ITS | Encounter Summary ---
Author Organization [facility] Address [address] [place] [address] Care Team Providers Care Projection Engineer Name Role Phone Juma Herrera MD Unavailable Juma Herrera MD Primary Care Provider [phone] Reason for Visit * Reason Comments Neck Pain neck pain radiating down right arm Encounter Details Date Type Department Care Team (Latest Contact Info) Description 01/28/2019 7:45 EDT Office Visit [facility] Interventional Pain [address] [place] [address] [place] [address] [place] [address] DDD (degenerative disc disease), cervical (Primary Dx); S/P cervical spinal fusion Discharge Disposition: Auto Discharge Social History Tobacco [...] disc degeneration, unspecified cervical region-M50.30[ICD-10-CM] Z98.1 Arthrodesis status-Z98.1[ICD-10-CM] documented in this encounter Patient Instructions * Patient Instructions* Shantelle Gautam RN - 01/28/2019 7:45 EDT [facility] [address] [phone] Patient Instructions You have had your cervical [...] in this encounter Progress Notes * Shantelle Gautam RN - 01/28/2019 0745 EDT Contrast Dye Used: 2mls Wasted: 8mls [facility] Rooming Note Does patient have a Jewelry Department Supervisor? yes Is patient NPO? (Solids since midnight [...] any type of implanted device? no Other: * Butler, Kash - 01/28/2019 0745 EDT Procedure: C6-7 cervical epidural under fluoroscopy Date Performed: 01/28/2019 Wood Pattern Maker: Kavon Butler M.D. Breakfast Server: Rosalino Gottlieb MD See history and physical [...] during the entire procedure. Kavon Butler MD documented in this encounter Plan of Treatment Upcoming Encounters Date Type Department Care Team (Late st Contact Info) Description 04/27/2024 14:30 EDT Telemedicine [facility] Neurology - [address] [place] [address] [place], [place] [address] Kj Gloria MD PhD 1 [facility], Level 2 [place] [address] 04/30/2024 9:30 EDT Office Visit [facility] Interventional Pain [address] [place] [address] Catalino Garrett MD [address] [place] [address] 09/18/2024 11:00 EST Office Visit [facility] Bariatric Surgery - [place] [address] [place], [place] [address] Allen Thompson, PA-C 111 [facility], Level 5 [place] [phone] documented as of this encounter Visit Diagnoses Diagnosis DDD (degenerative disc disease), cervical- Primary Degeneration of cervical intervertebral disc S/P cervical spinal fusion Arthrodesis status documented in this encounter Administered Medications Inactive Administered Medications - up to 3 most recent administrations Medication Order MAR Action Action Date Dose Rate Site methylPREDNISolone ACETATE (DEPO-MEDROL) injection 80 mg 80 mg, neural-axial, NOW X1, 1 dose, On Sat01/28/19 at 0900, Routine Given by Other 01/28/2019 8:30 EDT 80 mg documented in this encounter Discontinued Medications Medication Sig Discontinue Reason Start Date End Da te PROPRANOLOL HCL (PROPRANOLOL ORAL)Indications:migra ine Take 120 mg by mouth daily Discontinued by another clinician 01/28/2019 documented as of this encounter Care Teams Projection Engineer Relationship Specialty Start Date End Date Juma Herrera MD [address] [place], [place] [phone] PCP - General 01/07/19 03/13/21 Juma Herrera MD [address] [place], [place] [phone] 12/08/18 documented as of this encounter
--- OUTSIDE RECORDS SUMMARY | 2024-04-22 23:50 | XMS_ITS | Encounter Summary ---
Author Organization [facility] Address [address] [place] [address] Care Team Providers Care Principal Clerk Name Role Phone Juma Herrera MD Primary Care Provider [phone] Reason for Visit * Reason Onset Date Comments Other 09/21/2015 Encounter Details Date Type Department Care Team (Late st Contact Info) Description 09/21/2015 Telephone [facility] Bariatric Surgery [facility] [address] [place] [address] Master Ugarte MD [address] [place] [phone] Other Social History Tobacco Use Types Packs/Day [...] encounter Miscellaneous Notes * Telephone Encounter - Francine Joiner - 09/21/2015 1301 EST Patient called with questions about the protein powder. Please call back at [phone] documented in this encounter Plan of Treatment Upcoming Encounters Date Type Department Care Team (Late st Contact Info) Description 04/27/2024 14:30 EDT Telemedicine [facility] Neurology - [address] [phone] Kj Gloria MD PhD 1 [facility] Level 2 [place] [phone] 04/30/2024 9:30 EDT Office Visit [facility] Interventional Pain 62 [place] [address] Catalino Garrett MD 62 [facility] [address] [place] [address] 09/18/2024 11:00 EST Office Visit [facility] Bariatric Surgery - [place] [address] [place] [address] Allen Thompson PA-C 111 [facility], Level 5 [place] [address] documented as of this encounter Visit Diagnoses Not on filedocumented in this encounter Care Teams Principal Clerk Relationship Specialty Start Date End Date Juma Herrera MD [address] [facility] [place] [phone] PCP - General 09/25/12 12/07/18 documented as of this encounter
--- OUTSIDE RECORDS SUMMARY | 2024-04-22 23:50 | XMS_ITS | Encounter Summary ---
Author Organization [facility] Address [address] [place] [address] Care Team Providers Care Flat Drier Name Role Phone Juma Herrera MD Primary Care Provider [phone] Reason for Visit * Reason Comments Neck Pain neck pain radiating down right arm * Consult (Routine) - Specialty Report Received Specialty Diagnoses / Procedures [facility] Contact [facility] Medicine Diagnoses Neck pain Pain of right upper extremity Osteoarthritis of cervical spine, unspecified spinal osteoarthritis complication status Starr Hart PA-C [address] [place] [address] [facility] [address] [place] [address] Referral ID Status Reason Start Date Expiration Date Visits Requested Visits Authorized [id number] Specialty Report Received Specialty Services Required 8 1 1 Encounter Details Date Type Department Care Team (Latest Contact Info) Description 09/15/2018 7:45 EST Office Visit [facility] Interventional Pain [address] [place] [address] [place] [address] [place] [address] DDD (degenerative disc disease), cervical (Primary Dx) Discharge Disposition: Auto Discharge Social [...] region-M50.30[ICD-10-CM] documented in this encounter Patient Instructions * Patient Instructions* Millie Nunez RN - 09/15/2018 7:45 EST [facility] [address] [address] Patient Instructions You have had [...] Progress Notes * Shantelle Gautam RN - 09/15/2018 0798 EST [facility] Rooming Note Does patient have a Surveyor Helper? yes Is patient NPO? (Solids since midnight [...] have any type of implanted device? Other: * Kavon Butler - 09/15/2018 0745 EST Procedure: Diagnostic C6-7 cervical epidural under fluoroscopy Date Performed: 09/15/2018 Single Needle Operator: Kavon Butler M.D. See history and physical from Starr AVILA as well as scan media for clinical details, imaging, indications and medical necessity. No contraindication for the procedure. Written informed consentdiscussing the risks and alternatives were personally discussed with the patient, signed, and scanne d in the chart. History of C6-C7 ACDF [...] tolerated 2) Follow up with MARGARITA Hylton * Millie Nunez RN - 09/15/2018 0745 EST Contrast Dye Used: 3 mls Wasted: 7 mls documented in this encounter Plan of Treatment Upcoming Encounters Date Type Department Care Team (Late st Contact Info) Description 04/27/2024 14:30 EDT Telemedicine [facility] [address] Kj Gloria MD PhD [address] [place] [address] [address] [place] [phone] 04/30/2024 9:30 EDT Office Visit [facility] Interventional Pain [address] [place], [place] [phone] Catalino Garrett MD [address] [place] [address] 09/18/2024 11:00 EST Office Visit [facility] Bariatric Surgery - [place] [address] [place], [place] [address] Allen Thompson PA-C 111 [facility], Level 5 [place] [phone] documented as of this encounter Visit Diagnoses Diagnosis DDD (degenerative disc disease), cervical- Primary Degeneration of cervical intervertebral disc documented in this encounter Administered Medications Inactive Administered Medications - up to 3 most recent administrations Medication Order MAR Action Action Date Dose Rate Site methylPREDNISolone ACETATE (DEPO-MEDROL) injection 80 mg 80 mg, neural-axial, NOW X1, 1 dose, On Sat09/15/18 at 0845, Routine Given by Other 09/15/2018 8:35 EST 80 mg documented in this encounter Care Teams Flat Drier Relationship Specialty Start Date End Date Juma Herrera MD [address] [facility] [place] [address] PCP - General 09/25/12 12/07/18 documented as of this encounter
--- OUTSIDE RECORDS SUMMARY | 2024-04-22 23:50 | XMS_ITS | Encounter Summary ---
Author Organization [facility] Address [address] [place] [address] Care Team Providers Care Pile Driver Operator Name Role Phone Alejandra Trevino MD Primary Care Provider [phone] Encounter Details Date Type Department Care Team (Late st Contact Info) Description 2016 Results Only [facility] [phone] Dariela Stiles MD [address] [place] [address] [place] [address] Social History Tobacco Use Types Packs/Day Years [...] Info) Description 04/27/2024 14:30 EDT Telemedicine [facility] Neurology - [address] [place] 1 [place], [place] [address] Kj Gloria MD PhD 1 [facility] Level 2 [place] [phone] 04/30/2024 9:30 EDT Office Visit [facility] Interventional Pain 62 [facility] [place] [address] Catalino Garrett MD 62 [facility] [address] [place] [address] 09/18/2024 11:00 EST Office Visit [facility] Bariatric Surgery - [place] [address] [place], [place] [phone] Allen Thompson, ELISABETH 111 [facility], Level 5 [place] [phone] documented as of this encounter Procedures Procedure Name Priority Date/Time Associated Diagnosis Comments PAP TEST- RESULT ONLY Routine 2016 0:00 EDT documented in this encounter Results * PAP TEST- RESULT ONLY (2016 0:00 EDT) Pathology Report: CYTOPATHOLOGY REPORT Reports generated via electronic interface contain original data; however they are lacking the format of the original report. Caution should be taken when reading/interpreti ng unformatted reports. Name: ? TIA HITCHCOCK ? Accession #: ? [id number] ? : ? 1975 (Age: 41) ??F ?Collect Date: ? 2016 ? Location: ? [facility] ? Receive Date: ? 06/13/2016 ? Provider: DARIELA STILES MD Copy to: ALEJANDRA TREVINO MD ? Final Report SPECIMEN ADEQUACY ? Satisfactory for Evaluation - transformation zone component present GENERAL CATEGORIZATION ? Negative for Intraepithelial Lesion or Malignancy ?? Specimen/Source: ??Pap Test, Cervix/Endocervix, ThinPrep Imaging System with manual evaluation Document reviewed and electronically signed by: ? RENE Paris(ASCP) ? Report ??Date: 06/15/2016 11:13 HPV with Pap Test ? Date Ordered: ? 06/15/2016 ? Status: ?? Signed Out ?Date Complete: ? 06/18/2016 ? By: ??System Interface ? Date Reported: ? 06/18/2016 ? Interpretation RESULT: Negative for HPV. No E6 or E7 mRNA is detected from HPV types 16,18,31,33,35, 39,45,51,52,56,58, 59,66, and 68 by stamper blocker mediated amplification. Comments Document reviewed and electronically signed by: ? System Interface ? Report date: 06/18/2016 By the signature above, the attending physician certifies that he/she has personally conducted a gross and/or microscopic examination of the described specimens and rendered or confirmed the above diagnosis. End of Report [facility] 2016 06/13/2016 Dariela Stiles MD PATHOLOGY ORDERABLES [facility] [address] [place] [address] documented in this encounter Visit Diagnoses Not on filedocumented in this encounter Care Teams Pile Driver Operator Relationship Specialty Start Date End Date Alejandra Trevino MD [address] [facility] [address] PCP - General 09/25/12 12/07/18 documented as of this encounter
--- OUTSIDE RECORDS SUMMARY | 2024-04-22 23:50 | XMS_ITS | Encounter Summary ---
Author Organization [facility] Address [address] [place] [address] Care Team Providers Care Order Booker Name Role Phone Alejandra Trevino MD Primary Care Provider [phone] Encounter Details Date Type Department Care Team (Late st Contact Info) Description 11/22/2016 Results Only [facility] [phone] Dariela Stiles MD [address] [place] [address] [place] [address] Social History Tobacco Use Types Packs/Day Years [...] Contact Info) Description 04/27/2024 14:30 EDT Telemedicine [facility] Neurology - [address] [place] [address] [place], [place] [address] Kj Gloria MD PhD 1 [facility] Level 2 [place] [phone] 04/30/2024 9:30 EDT Office Visit [facility] Interventional Pain 62 [facility] [place] [address] Catalino Garrett MD 62 [facility] [address] [place] [address] 09/18/2024 11:00 EST Office Visit [facility] Bariatric Surgery - [address] [phone] Allen Thompson, ELISABETH 111 [facility], Level [address] [place] [phone] documented as of this encounter Procedures Procedure Name Priority Date/Time Associated Diagnosis Comments SURGICAL PATHOLOGY Routine 11/22/2016 21 :30 EDT documented in this encounter Results * SURGICAL PATHOLOGY (11/22/2016 21:30 EDT) Pathology Report: SURGICAL PATHOLOGY REPORT Reports generated via electronic interface contain original data; however they are lacking the format of the original report. Caution should be taken when reading/interpret ing unformatted reports. Name: ? TIA HITCHCOCK ? Accession #: ? [id number] ? : ? 1975 (Age: 41) ??F ? Collect Date: ? 11/22/2016 ? Location: ? [facility] ? Receive Date: ? 11/22/2016 ? Provider: DARIELA STILES MD Copy to: ALEJANDRA TREVINO MD ? Final Pathologic Diagnosis: A. UTERUS, CERVIX, AND FALLOPIAN TUBE, RIGHT FIMBRIA, HYSTERECTOMY AND DISTAL SALPINGECTOMY: - ??Endometrium: ? - ??Proliferative. - ??Myometrium: ? - ??Focal adenomyosis. ? - ??Leiomyomata (0.5 cm maximal dimension); - ??Cervix: ? - ??Chronic cervicitis. - ??Serosa: ? - ??No pathologic features. - ??Fallopian tube: ? - ??Distal portion of fallopian tube with paratubal cyst. B. SUBMITTED LEFT FIBRIMA, DISTAL SALPINGECTOMY: - ??Distal portion of fallopian tube with paratubal cyst. Document reviewed and electronically signed by: JAYLAN RUIZ MD Report ??Date: 11/26/2016 15:11 By the signature above, the attending physician certifies that he/she has personally conducted a gross and/or microscopic examination of the described specimens and rendered or confirmed the above diagnosis. Specimen(s) Received: A. ??Uterus and R fimbria B. ??L fimbria Clinical History: Menorrhagia; dysmenorrhea Gross Description: A. ?Received in formalin labelled with proper patient identification (initials C, S) and R fimbria and uterus is a 170 g intact uterus (10.8 cm cervix to fundus, 7.0 cm cornu to cornu, and 4.9 cm anterior to posterior). The serosa is dull and ko-gillespie. The cervix is 3.5 cm in diameter and displays a patent os. The endocervical canal is lined by a reticular ko-gillespie surface. The endometrium is soft and ko-gillespie to focally hemorrhagic and measures up to 1.0 cm in thickness. The myometrium shows two intramural and subserosal nodules, averaging 0.5 cm in greatest dimension. The subserosal nodule has a gillespie-white cut surface. The intramural nodule has a ko-brown cut surface. The myometrium is otherwise unremarkable. Received in the same container is a 1.5 cm in length distal fallopian tube segment, averaging 0.7 cm in diameter. A partially collapsed fluid filled cyst is present. Additional tubal segments are not identified. Floor Associate sections are submitted as follows: BLOCK LUOIE A1- ??anterior cervix A2- ??anterior lower uterine segment A3-A4- ??anterior endomyometrium A5- ??posterior cervix A6- ??posterior lower uterine segment A7-A8- ??posterior endomyometrium A9- ??subserosal nodule A10- ??intramural nodule A11- ??entire right distal fallopian tube B. ?Received in formalin labelled with proper patient identification (initials C, S) and L fimbria is a 5.5 cm in length fallopian tube, ranging from 0.6-1.0 cm in diameter. The distal tube shows a partially collapsed clear fluid filled thin walled cyst (1.1 cm in diameter). The serosa is dusky and gillespie-brown. Sections show an intact wall with a pinpoint lumen. Floor Associate sections are submitted, to include the entire distal end and one cross section, in B1 and B2. MARGARITA Nixon (ASCP) 11/23/2016 11:43 AM End of Report [facility] 11/22/2016 21:3 0 EDT 11/22/2016 21:30 EDT Dariela Stiles MD PATHOLOGY ORDERABLES [facility] [address] [place] [address] documented in this encounter Visit Diagnoses Not on filedocumented in this encounter Care Teams Order Booker Relationship Specialty Start Date End Date Alejandra Trevino MD [address] [place] [address] PCP - General 09/25/12 12/07/18 documented as of this encounter
--- OUTSIDE RECORDS SUMMARY | 2024-04-22 23:50 | XMS_ITS | Encounter Summary ---
Author Organization [facility] Address [address] [place] [address] Care Team Providers Care Slitter Processed Film Name Role Phone Juma Herrera MD Primary Care Provider [phone] Reason for Visit * Reason Onset Date Comments Paperwork request 11/10/2015 Pt unable to f ind return to work letter; requests another one to be faxed to her HR. Pt stated that the HR fax number should be in her chart as other paperwork had been faxed there for her. Encounter Details Date Type Department Care Team (Late st Contact Info) Description 11/10/2015 Telephone [facility] Bariatric Surgery - [address] [address] Master Ugarte MD [address] [place] [phone] Paperwork request (Pt unable to find return to work letter; requests another one to be faxed to her HR. Pt stated that the HR fax number should be in her chart as other paperwork had been faxed there for her.) Social History Tobacco [...] encounter Miscellaneous Notes * Telephone Encounter - Mary Rosales RN - 11/10/2015 6279 EST Faxed return to work letter to employer. Electronically signed by Mary Rosales RN CBN documented in this encounter Plan of Treatment Upcoming Encounters Date Type Department Care Team (Late st Contact Info) Description 04/27/2024 14:30 EDT Telemedicine [facility] Neurology - [address] [phone] Kj Gloria MD PhD 1 [facility], Level 2 [place] [phone] 04/30/2024 9:30 EDT Office Visit [facility] Interventional Pain 62 [place] [address] Catalino Garrett MD 62 [facility] [address] [place] [address] 09/18/2024 11:00 EST Office Visit [facility] Bariatric Surgery - [place] [address] [address] [place], [place] [address] Allen Thompson PA-C 111 [facility], Level [address] [place] [address] documented as of this encounter Visit Diagnoses Not on filedocumented in this encounter Care Teams Slitter Processed Film Relationship Specialty Start Date End Date Juma Herrera MD [address] [place] [phone] PCP - General 09/25/12 12/07/18 documented as of this encounter
--- OUTSIDE RECORDS SUMMARY | 2024-04-22 23:50 | XMS_ITS | Encounter Summary ---
Author Organization [facility] Address [address] [place] [address] Care Team Providers Care Montessori Preschool Teacher Name Role Phone Juma Herrera MD Primary Care Provider [phone] Reason for Visit * Reason Comments Shoulder Pain right * Consult, Test and Treat (Routine) - Closed Specialty Diagnoses / Procedures Referred By Wili mireles Referred To Contact Orthopedic Surgery Diagnoses Pain in right shoulder Juma Herrera MD [address] [place] [address] [facility] Ortho [place] [address] Referral ID Status Reason Start Date Expiration Date Visits Re quested Visits Authorized [id number] Closed 1 1 Encounter Details Date Type Department Care Team (Late st Contact Info) Description 05/20/2018 10:30 EDT Office Visit [facility] Sports Medicine Program [place] [address] Starr Hart PA-C Neck pain (Primary Dx); Chronic right shoulder pain Discharge Disposition: Auto Discharge Social History Tobacco [...] No 09/05/2015 documented as of this encounter Discharge Diagnoses Diagnosis M19.011 Primary osteoarthritis, right shoulder-M19.011[ICD-10-CM] M54.2 Cervicalgia-M54.2[ICD-10-CM] documented in this encounter Discharge Disposition Disposition Code Departure Means Destination Auto Discharge documented in this encounter Progress Notes * Bee Jackson - 05/20/2018 1030 EDT Right USG SA Injection Bupivacaine 0.5% 10 mL Med lot [id number]: [facility] number: [id number] Exp date:01/20 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 If she tries to do stretches and exercises, though, this does increase her pain. She uses oxycodone mainly forlower back pain and also has undergone previous fusion, Cymbalta, Lyrica and marijuana as needed for pain. Patient Active Problem List Diagnosis Date Noted ??? Morbid obesity with BMI of 45.0-49.9, adult ([facility]) 03/10/2015 ??? Cervicalgia 09/29/2012 ??? Idiopathic peripheral neuropathy 03/20/2012 ??? Tarsal tunnel syndrome of right side 08/02/2011 ??? 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 Lumbar radiculopathy 10/03/2006 Class: Permanent Past Medical History: Diagnosis Date ??? Anxiety ??? Arthritis ??? Back pain ??? Bipolar disorder (HCC-CMS) ??? Breathing problem ??? Depression ??? Diabetes mellitus (HCC-CMS) ??? Drug abuse ??? Eye problem ??? [...] dry to inspection and palpation. Neurovascularly intact with good capillary refill. Right scapular dyskinesis with superior atrophy mildly at the pectoralis on the right; 90 degrees of right active abduction, forward flexion, full passive abduction, forward flexion, 90 degrees of scapular abduction with pain elicited, 60 degrees right, 70 degrees left, external rotation. Internal rotation on the right to T12; 4+/5 empty can, resisted external rotation, belly press. Positive Middlesex's, Speed's. Negative Yergason's. There is palpable tenderness diffusely, coracoid process, long head of the bicep tendon, greater tuberosity, AC joint. She has decreased cervical range of motion in all planes, palpable tenderness throughout the midline cervical spine. Spurling's on the right reproduces some aspect of her right shoulder pain. Decreased sensation, dorsal forearm, thumb, index, middle digits on the right, 1+ biceps, brachioradialis, triceps reflexes bilaterally. Negative Holm's. She has 4 to 5 bilateral triceps full strength, elbow flexion, wrist flexors, extensors, 4 to 5 right intrinsics. Full strength residential glazier strength. Radiographs of the shoulder obtained 05/20/2018 reveal mild to moderate AC joint degenerative changes. She had a previous MRI of the cervical spine with a small disk herniation midline just to the rightaspect of the cord at C5-C6 with large disk herniation at C6-C7 and right foraminal stenosis. ASSESSMENT: A 42-year-old female with right shoulder pain, likely a component of rotator cuff tendinopathy, subacromial bursitis. Unclear if she has intraarticular related pathology contributing to her symptoms. Also with persistent neck pain and cervical [...] in the clinic today if needed. A consultationwas not required. documented in this encounter Procedure Notes * Starr Hart PA - 05/20/2018 1030 EDT [...] Description 04/27/2024 14:30 EDT Telemedicine [facility] Neurology - [address] [place] [address] [place], [place] [address] Kj Gloria MD PhD 1 [facility], Level [address] [place] [phone] 04/30/2024 9:[address] [facility] Interventional Pain [address] [place], [place] [phone] Catalino Garrett MD [address] [place] [address] 09/18/2024 11:00 EST Office Visit [facility] Bariatric Surgery - [place] [address] [place], [place] [address] Allen Thompson PA-C [address] [facility], [address] [place] [phone] documented as of this encounter Visit Diagnoses Diagnosis Neck pain- Primary Cervicalgia Chronic right shoulder pain Pain in joint, shoulder region documented in this encounter Care Teams Montessori Preschool Teacher Relationship Specialty Start Date End Date Juma Herrera MD [address] [facility] [place] [address] PCP - General 09/25/12 12/07/18 documented as of this encounter
--- OUTSIDE RECORDS SUMMARY | 2024-04-22 23:50 | XMS_ITS | Encounter Summary ---
Author Organization [facility] Address [address] [place] [address] Care Team Providers Care Traveling Buyer Name Role Phone Juma Herrera MD Primary Care Provider [phone] Encounter Details Date Type Department Care Team (Latest Contact Info) Description 11/22/2016 11:24 EDT - 11/22/2016 23:59 EDT Hospital Encounter [address] [address] Unknown, Provider, Discharge Disposition: Home or Self Care Social [...] No 09/05/2015 documented as of this encounter Medications at Time of Discharge Medication Sig Dispensed Refills Start Date End Date duloxetine (CYMBALTA) 30 mg capsule Take 3 Capsules by mouth daily. Take with 60mg cap to =90mg dose 05/16/2011 methylphenidate (RITALIN SR; METADATE ER; METHYLIN ER) [...] needed for Nausea 60 Tab 0 08/31/2015 acetaminophen (TYLENOL) 650 mg/20.3 mL solution Take 20.3 mL by mouth every 4 hours 09/07/2015 09/27/2017 LORazepam (ATIVAN) 0.5 mg tablet Take 0.5 [...] form Daily Max: 60 mg 09/07/2015 05/17/2022 oxyCODONE (ROXICODONE) 5 mg/5 mL solution Take 5-10 mL by mouth every 4 hours as needed for Pain starting after surgery on 09/05/14 Daily Max: 60 mg 150 mL 0 08/19/2015 09/27/2017 pediatric multivitamin (JUAN CHEW VIT) chewable tablet Take 1 Tab by mouth daily Hold for 2 weeks 09/07/2015 05/17/2022 PROPRANOLOL HCL (PROPRANOLOL ORAL)Indications:migraine Take 120 mg by mouth daily 01/28/2019 rizatriptan (MAXALT) 10 mg tablet Take 10 mg by mouth once as needed. May repeat in 2 hours if needed 12/18/2021 documented as of this encounter Discharge Disposition Disposition Code Departure Means Destination Home or Self Jail documented in this encounter Plan of Treatment Upcoming Encounters Date Type Department Care Team (Late st Contact Info) Description 04/27/2024 14:30 EDT Telemedicine [facility] Neurology - [address] [place] [address] [place], [place] [address] Kj Gloria MD PhD 1 [facility], [address] [place] [phone] 04/30/2024 9:30 EDT Office Visit [facility] Interventional Pain 62 [facility] [place], [place] [phone] Catalino Garrett MD 62 [facility] [address] [place] [phone] 09/18/2024 11:00 EST Office Visit [facility] Bariatric Surgery [facility] [address] [place], [place] [address] Allen Thompson, ZHOUC 111 [facility], [address] [place] [phone] documented as of this encounter Visit Diagnoses Not on filedocumented in this encounter Care Teams Traveling Buyer Relationship Specialty Start Date End Date Juma Herrera MD [address] [facility] [place] [address] PCP - General 09/25/12 12/07/18 documented as of this encounter
--- OUTSIDE RECORDS SUMMARY | 2024-04-22 23:50 | XMS_ITS | Encounter Summary ---
Author Organization [facility] Address [address] [place] [address] Care Team Providers Care Rn Endocrinology Name Role Phone Juma Herrera MD Primary Care Provider [phone] Reason for Referral * Consult (Routine) - Specialty Report Received Specialty Diagnoses / Procedures Referred By Wili mireles Referred To Contact Pain Medicine Diagnoses Neck pain Pain of right upper extremity Osteoarthritis of cervical spine, unspecified spinal osteoarthritis complication status Starr Hart PA-C [address] [place] [address] [facility] [address] [place] [address] Referral ID Status Reason Start Date Expiration Date Visits Requested Visits Authorized [id number] Specialty Report Received Specialty Services Required 8 1 1 Question Answer Reason for Request: C5-6 TLESI Has the patient had diagnostic studies? Yes Diagnotic Studies: MRI/CT Have other specialty consultations been completed for this pain compliant? Yes We provide consultative services. We do not assume the role of prescribing physician for this therapy. Please help us understand your area of interest by selecting from the common topics below: Yes Should opioids be initiated on this patient? No Should opioids be continued on this patient? No Reason for Visit * Reason Comments Shoulder Pain right Neck Pain Encounter Details Date Type Department Care Team (Latest Contact Info) Description 07/14/2018 11:45 EST Office Visit 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 At our last encounter, she underwent a right ultrasound-guided subacromial injection, which provided significant relief of her anterior shoulder pain, but she is starting to experience [...] the MRI of her neck and the MRIof her right shoulder today. Please see previous report for further detailed history. Patient Active Problem List Diagnosis Date Noted ??? Morbid obesity with BMI of 45.0-49.9, adult ([facility]) 03/10/2015 ??? Cervicalgia 09/29/2012 ??? Idiopathic peripheral neuropathy 03/20/2012 ??? Tarsal tunnel syndrome of right side 08/02/2011 ??? 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 Lumbar radiculopathy 10/03/2006 Class: Permanent Past Medical History: Diagnosis Date ??? Anxiety ??? Arthritis ??? Back pain ??? Bipolar disorder ([facility]) ??? Breathing problem ??? Depression ??? Diabetes mellitus ([facility]) ??? Drug abuse ([facility]) ??? Eye problem ??? Generalized headaches ??? Headache(784.0) ??? Heart disease ??? History of substance abuse ??? Hypertension ??? Kidney disease ??? Mental disorder ??? Nervousness(799.21) ??? Numbness ??? Personality disorder ([facility]) ??? Plantar fasciitis ??? PTSD (post-traumatic stress [...] superior and anterior shoulder pain, likely secondary to AC joint osteoarthrosis, small partial-thickness supraspinatus tear with right-sided cervical and scapular pain, which may be related to degenerative changes at C5-C6. She has no foraminal narrowingon the right side. Upper extremity dysesthesia may be a permanent nerve injury at this point. We discussed further treatment options including a diagnostic therapeutic C5-6 [id number], ultrasound-guided AC joint injection, surgical options. She would like to proceed [...] [facility] Neurology - [address] [place] [address] [place], [place] [address] Kj Gloria MD PhD 1 [facility], [address] [place] [phone] 04/30/2024 9:30 EDT Office Visit [facility] Interventional Pain [address] [place], [place] [phone] Catalino Garrett MD [address] [facility] [address] [place] [address] 09/18/2024 11:00 EST Office Visit [facility] Bariatric Surgery [place] [address] [address] [place], [place] [address] Allen Thompson PALizettC [address] [facility], [address] [place] [phone] Scheduled Referrals Name Type Priority Associated Diagnoses Orde r Schedule AMB CONS/FOLLOW UP PAIN INTERVENTIONAL Outpatient Referral Routine Neck pain Pain of right upper extremity Osteoarthritis of cervical spine, unspecified spinal osteoarthritis complication status Ordered: 07/14/2018 documented as of this encounter Visit Diagnoses Diagnosis Neck pain- Primary Cervicalgia Pain of right upper extremity Osteoarthritis of cervical spine, unspecified spinal osteoarthritis complication status documented in this encounter Historical Medications * This list may reflect changes made after this encounter. Medication Sig Dispensed Refills Start Date End Date SUMAtriptan succinate 3 mg/0.5 mL pen injector Inject into the skin three times a week. 02/21/2021 added in this encounter Care Teams Rn Endocrinology Relationship Specialty Start Date End Date Juma Herrera MD [address] [facility] [place] [address] PCP - General 09/25/12 12/07/18 documented as of this encounter
--- OUTSIDE RECORDS SUMMARY | 2024-04-22 23:50 | XMS_ITS | Encounter Summary ---
Author Organization [facility] Address [address] [place] [address] Care Team Providers Care Server Programmer Name Role Phone Juma Herrera MD Primary Care Provider [phone] Encounter Details Date Type Department Care Team (Late st Contact Info) Description 10/08/2017 Documentation Visit [facility] Bariatric Surgery [address] [address] Mary Rosales RN Social History Tobacco Use Types Packs/Day Years [...] No 09/05/2015 documented as of this encounter Progress Notes * Mary Rosales, RN - 10/08/2017 3956 EST Documentation only. Electronically signed by Mary Rosales RN CBN documented in this encounter Plan of Treatment Upcoming Encounters Date Type Department Care Team (Late st Contact Info) Description 04/27/2024 14:30 EDT Telemedicine [facility] Neurology - [address] [place] [address] [place], [place] [address] Kj Gloria MD PhD 1 [facility] [address] [place] [phone] 04/30/2024 9:30 EDT Office Visit [facility] Interventional Pain [address] [place], [place] [phone] Catalino Garrett MD 62 [facility] [address] [place] [address] 09/18/2024 11:00 EST Office Visit [facility] Bariatric Surgery [facility] [address] [place], [place] [address] Allen Thompson PA-C [address] [place] [address], [address] [place] [phone] documented as of this encounter Procedures Procedure Name Priority Date/Time Associated Diagnosis Comments VITAMIN D (25,OH) Routine 09/26/2017 IRON Routine 09/26/2017 FERRITIN Routine 09/26/2017 documented in this encounter Results * (ABNORMAL) VITAMIN D (25,OH) (09/26/2017) 25OH Vitamin D Tot, External 14.8(A) 30 - 100 [facility] Blood specimen (specimen) 09/26/2017 Allen Ziggy Lopezer-Dakotasy PA-C CHEMISTRY & BLOOD GAS ORDERABLES [facility] * IRON (09/26/2017) Iron, External 93 [facility] Blood specimen (specimen) 09/26/2017 Allen Leivatter-Cressy PA-C CHEMISTRY & BLOOD GAS ORDERABLES [facility] * FERRITIN (09/26/2017) Ferritin, External 8 [facility] Blood specimen (specimen) 09/26/2017 Allen Ziggy Lopezer-Dakotasy PA-C CHEMISTRY & BLOOD GAS ORDERABLES [facility] documented in this encounter Visit Diagnoses Not on filedocumented in this encounter Care Teams Server Programmer Relationship Specialty Start Date End Date Juma Herrera MD [address] [facility] [place] [phone] PCP - General 09/25/12 12/07/18 documented as of this encounter
--- OUTSIDE RECORDS SUMMARY | 2024-04-22 23:50 | XMS_ITS | Encounter Summary ---
Author Organization [facility] Address [address] [place] [address] Care Team Providers Care Window Trimmer Apprentice Name Role Phone Juma Herrera MD Primary Care Provider [phone] Reason for Visit * Reason Onset Date Comments Appointment Related 07/09/2018 Encounter Details Date Type Department Care Team (Late st Contact Info) Description 07/09/2018 Telephone [facility] Sports Medicine Program - [address] [facility] [place] [address] Starr Hart PALizettC Appointment Related Social History Tobacco Use Types [...] encounter Miscellaneous Notes * Telephone Encounter - Bee Jackson - 07/09/2018 1055 EST I called and left Tia a message with the date and time of her MRI Jul 14 check in at 7:15 am [facility], will need x ray prior to MRI. Follow up on Jul 14 at 11:45 [place] Jackson 07/09/2018 10:57 documented in this encounter Plan of Treatment Upcoming Encounters Date Type Department Care Team (Late st Contact Info) Description 04/27/2024 14:30 EDT Telemedicine [facility] Neurology - [address] [phone] Kj Gloria MD PhD 1 [facility] Level [address] [place] [phone] 04/30/2024 9:30 EDT Office Visit [facility] Interventional Pain 62 [facility] [place], [place] [phone] Catalino Garrett MD 62 [facility] [address] [place] [address] 09/18/2024 11:00 EST Office Visit [facility] Bariatric Surgery - [place] [address] [place], [place] [address] Allen Thompson PA-C 111 [facility], [address] [place] [phone] documented as of this encounter Visit Diagnoses Not on filedocumented in this encounter Care Teams Window Trimmer Apprentice Relationship Specialty Start Date End Date Juma Herrera MD [address] [place] [address] PCP - General 09/25/12 12/07/18 documented as of this encounter
--- OUTSIDE RECORDS SUMMARY | 2024-04-22 23:50 | XMS_ITS | Encounter Summary ---
Author Organization [facility] Address [address] [place] [address] Care Team Providers Care Planing Machine Operator Name Role Phone Juma Herrera MD Primary Care Provider [phone] Reason for Visit * Reason Comments Obesity POST OP SLEEVE 3 MON THS (09/05/15) Encounter Details Date Type Department Care Team (Late st Contact Info) Description 12/09/2015 11:30 EDT Office Visit [facility] Bariatric Surgery [facility] [address] [place], [place] [phone] Master Ugarte MD [address] [place] [address] S/P laparoscopic sleeve gastrectomy (Primary Dx) Social History Tobacco Use Types [...] encounter Discharge Diagnoses Diagnosis Z98.84 Bariatric surgery status-Z98.84[ICD-10-CM] documented in this encounter Progress Notes * Lux Dumont, RD - 12/09/2015 1237 EDT Nutrition Post Op Visit: Gastric Sleeve Subjective: Patient returns to clinic for post op nutritional counseling following bariatric surgery ~ 3 months ago. Questionnaire Reviewed: Yes Intolerance [...] Control:1-2 lbs per week Other:Bariatric eating guidelines * Master Ugarte MD - 12/09/2015 1045 EDT SMOKING again told her to stop or she will get an ulceration,bleed ,perforate and possibly 12/09/2015 Tia Spain is here in follow-up to her laparoscopic sleeve gastrectomy. The weight trend for the patient is: Weight at initial consult: 147.691 kg [...] STOP SMOKING NOW Seen and discussed with Photography Coordinator at this visit. Master Ugarte MD 12/09/2015 10:45 documented in this encounter Plan of Treatment Upcoming Encounters Date Type Department Care Team (Late st Contact Info) Description 04/27/2024 14:30 EDT Telemedicine [facility] Neurology - [address] [place] [address] [place], [place] [address] Kj Gloria MD PhD 1 [facility], [address] [place] [phone] 04/30/2024 9:30 EDT Office Visit [facility] Interventional Pain 62 [facility] [place] [address] Catalino Garrett MD 62 [facility] [address] [place] [phone] 09/18/2024 11:00 EST Office Visit [facility] Bariatric Surgery - [place] [address] [place] [address] Allen Thompson, PA-C 111 [facility], [address] [place] [address] documented as of this encounter Visit Diagnoses Diagnosis S/P laparoscopic sleeve gastrectomy- Primary Bariatric surgery status documented in this encounter Care Teams Planing Machine Operator Relationship Specialty Start Date End Date Juma Herrera MD [address] [facility] [place] [address] PCP - General 09/25/12 12/07/18 documented as of this encounter
--- OUTSIDE RECORDS SUMMARY | 2024-04-22 23:50 | XMS_ITS | Encounter Summary ---
Author Organization [facility] Address [address] [place] [address] Care Team Providers Care Industrial Relations Representative Name Role Phone Juma Herrera MD Primary Care Provider [phone] Reason for Visit * Reason Onset Date Comments Appointment Related 06/09/2018 Encounter Details Date Type Department Care Team (Late st Contact Info) Description 06/09/2018 Telephone [facility] Sports Medicine Program - [facility] [place] [address] Starr Hart PALizettC Appointment Related [...] * Telephone Encounter - Bee Jackson - 06/09/2018 1433 EDT I called zach with the date and time of her MRI Jul 14 check in 7:30 am [facility] follow with Starr Hart Jul 14 at 11:45 Bee Jackson 06/09/2018 14:38 documented in this encounter Plan of Treatment Upcoming Encounters Date Type Department Care Team (Late st Contact Info) Description 04/27/2024 14:30 EDT Telemedicine [facility] Neurology [address] [phone] Kj Gloria MD PhD 1 [facility] Level 2 [place] [phone] 04/30/2024 9:30 EDT Office Visit [facility] Interventional Pain 62 [facility] [place] [address] Catalino Garrett MD 62 [facility] [address] [place] [address] 09/18/2024 11:00 EST Office Visit [facility] Bariatric Surgery - [place] [address] [place] [address] Allen Thompson PA-C 111 [facility], [facility], Level [address] [place] [address] documented as of this encounter Visit Diagnoses Not on filedocumented in this encounter Care Teams Industrial Relations Representative Relationship Specialty Start Date End Date Juma Herrera MD [address] [facility] [place] [phone] PCP - General 09/25/12 12/07/18 documented as of this encounter
--- OUTSIDE RECORDS SUMMARY | 2024-04-22 23:50 | XMS_ITS | Encounter Summary ---
Author Organization [facility] Address [address] [place] [address] Care Team Providers Care Deckhand Oyster Dredge Name Role Phone Juma Herrera MD Primary Care Provider [phone] Reason for Referral * Radiology Services (Routine) - New Request Specialty Diagnoses / Procedures Referred By Contmarco a t Referred To Contact Diagnoses Right shoulder pain, unspecified chronicity Procedures SHOULDER 2 OR MORE VIEWS Starr Hart PA-C [address] [place] [address] Referral ID Status Reason Start Date Expiration Date V isits Requested Visits Authorized [id number] New Request 05/08/2018 1 1 Encounter Details Date Type Department Care Team (Late st Contact Info) Description 05/08/2018 Orders Only [facility] Sports Medicine Program - [address] [place] [address] Starr Hart PA-C Right shoulder [...] 14:30 EDT Telemedicine [facility] Neurology - [address] [phone] Kj Gloria MD PhD 1 [facility] Level 2 [place] [phone] 04/30/2024 9:30 EDT Office Visit [facility] Interventional Pain [address] [facility] [place] [address] Catalino Garrett MD 62 [facility] [address] [place] [address] 09/18/2024 11:00 EST Office Visit [facility] Bariatric Surgery - [place] [address] [place] [address] Allen Thompson PA-C 111 [facility], [facility], [address] [place] [phone] documented as of this encounter Procedures Procedure Name Priority Date/Time Associated Diagnosis Comments SHOULDER 2 OR MORE VIEWS Routine 05/20/2018 10:14 EDT Right shoulder pain, unspecified chronicity documented in this encounter Results * SHOULDER 2 OR MORE VIEWS (05/20/2018 10:14 EDT) Anatomical Region Laterality Modality Other 05/20/2018 10:1 4 EDT 05/20/2018 11:18 EDT Narrative 05/20/2018 11:18 EDT EXAM/TECHNIQUE: RIGHT SHOULDER 2 OR MORE VIEW ??05/20/2018 10:14 AM HISTORY: ?? M25.511-Pain in right dojkidem-SON-75; shoulder pain COMPARISON: None. FINDINGS / IMPRESSION: 4 views of the right shoulder show no evidence of acute fracture or malalignment. The humeral head is well aligned with the scapular glenoid fossa. There are moderate degenerative changes in the acromioclavicular joint. Procedure Note Mark Sherwood, DO - 05/20/2018 EXAM/TECHNIQUE: RIGHT SHOULDER 2 OR MORE VIEW 05/20/2018 10:14 AM HISTORY: M25.511-Pain in right ndqcrayy-ROA-03; shoulder pain COMPARISON: None. FINDINGS / IMPRESSION: 4 views of the right shoulder show no evidence of acute fracture or malalignment. The humeral head is well aligned with the scapular glenoid fossa. There are moderate degenerative changes in the acromioclavicular joint. Starr Hart PA-C IMG DIAGNOSTIC PARMINDER GING ORDERABLES documented in this encounter Visit Diagnoses Diagnosis Right shoulder pain, unspecified chronicity- Primary documented in this encounter Care Teams Deckhand Oyster Dredge Relationship Specialty Start Date End Date Juma Herrera MD [address] [facility] [address] PCP - General 09/25/12 12/07/18 documented as of this encounter
--- OUTSIDE RECORDS SUMMARY | 2024-04-22 23:50 | XMS_ITS | Encounter Summary ---
Author Organization [facility] Address [address] [place] [address] Care Team Providers Care Real Estate Inspector Name Role Phone Juma Herrera MD Primary Care Provider [phone] Reason for Visit * Reason Comments Obesity post op sleeve () Encounter Details Date Type Department Care Team (Late st Contact Info) Description 09/27/2017 10:00 EST Office Visit [facility] Bariatric Surgery [address] [place] [address] Allen Thompson, PALizettC [address] [place] [address], [address] [place] [address] S/P laparoscopic sleeve gastrectomy (Primary Dx) Discharge Disposition: Auto Discharge Social [...] kg (177 lb 6.4 oz) 09/27/[address] Height 172.7 cm (5' 7.99) 09/27/2017 1000 [...] Encntr for f/u exam aft trtmt for cond oth than malig neoplm-Z09[ICD-10-CM] Z98.84 Bariatric surgery status-Z98.84[ICD-10-CM] documented in this encounter Discharge Disposition Disposition Code Departure Means Destination Auto Discharge documented in this encounter Progress Notes * Allen Thompson PA - 09/27/2017 1000 EST [...] Morbid obesity with BMI of 45.0-49.9, adult ([facility]) SUBJECTIVE: Emesis: No complaints of emesis [...] should be coming soon, drawn yesterday at [facility] PLAN: 1. Return to clinic in 1 year(s). 2. No orders of the defined types were placed in this encounter. 3. Seen and discussed with Underground Distribution Engineer at this visit. MARGARITA Gomez 09/27/2017 11:06 * Sarah Liz, RD - 09/27/2017 1000 EST Nutrition Post Op Visit: Gastric Sleeve Subjective: Patient returns to clinic for post op nutritional counseling following bariatric surgery ~2yrs ago. Questionnaire Reviewed: Yes Intolerance Episodes: Yes; has dumping-like symptoms following junk food has <1-2x/wk, has vomiting if eats too much or too fast-rare Food Intolerances: Sweets, sausage, and milk (only plain, other dairy okay and chocolate milk okay per pt) Current Exercise: Walks ~30min 3-5x/wk if weather allows; is active at work at [employer]on feet and moving for 6 hours-usually works [...] Recent Labs: No labs currently-had done [place] and they will fax them Assessment: Adequate Meal Frequency: Yes Adequate Meal Composition: Yes Exercise Adequacy: Yes Nutritional Issues: Pt quit smoking 3 weeks ago. States she had been snacking on junk and saw ~7lb wt gain. Pt reports she has maintained wt between 160-170lbs for over the last yr. Pt states over last 2 weeks wt has been between 175- 177lbs. Pt noticed wt gain after quitting and has since changedsnacks from junk food to vegetables and dehydrated [...] Education Provided: Other : Multivitamin/minerals post-bariatric surgery documented in this encounter Plan of Treatment Upcoming Encounters Date Type Department Care Team (Late st Contact Info) Description 04/27/2024 14:30 EDT Telemedicine [facility] Neurology - [address] [place], [place] [phone] Kj Gloria MD PhD 1 [facility], [address] [place] [address] 04/30/2024 9:30 EDT Office Visit [facility] Interventional Pain [address] [place] [address] Catalino Garrett MD [address] [facility] [address] [place] [address] 09/18/2024 11:00 EST Office Visit [facility] Bariatric Surgery - [place] [address] [place] [address] Allen Thompson PA-C 111 [facility], [facility] 5 [place] [address] documented as of this encounter Visit Diagnoses Diagnosis S/P laparoscopic sleeve gastrectomy- Primary Bariatric surgery status documented in this encounter Discontinued Medications Medication Sig Discontinue Reason Start Date End Da te oxyCODONE (ROXICODONE) 5 mg/5 mL solution Take 5-10 mL by mouth every 4 hours as needed for Pain starting after surgery on 09/05/14 Daily Max: 60 mg Therapy completed 08/19/2015 09/27/2017 acetaminophen (TYLENOL) 650 mg/20.3 mL solution Take 20.3 mL by mouth every 4 hours Therapy completed 09/07/2015 09/27/2017 documented as of this encounter Historical Medications * This list may reflect changes made after this encounter. Medication Sig Dispensed Refills Start Date End Date MEDICAL MARIJUANA as needed. added in this encounter Care Teams Real Estate Inspector Relationship Specialty Start Date End Date Juma Herrera MD [address] [facility] [place] [phone] PCP - General 09/25/12 12/07/18 documented as of this encounter
--- OUTSIDE RECORDS SUMMARY | 2024-04-22 23:50 | XMS_ITS | Encounter Summary ---
Author Organization [facility] Address [address] [place] [address] Care Team Providers Care Cnc Mill Set Up Operator Name Role Phone Juma Herrera MD Primary Care Provider [phone] Reason for Referral * Laboratory Services (Routine) - Closed Specialty Diagnoses / Procedures Referred By Wili mireles Referred To Contact Diagnoses Morbid obesity, unspecified obesity type (HCC-CMS) S/P laparoscopic sleeve gastrectomy Procedures VITAMIN D (25,OH) Allen Thompson PA-C [address] [place] [phone] Referral ID Status Reason Start Date Expiration Date Visits Re quested Visits Authorized [id number] Closed 08/26/2016 1 1 * Laboratory Services (Routine) - Closed Specialty Diagnoses / Procedures Referred By Wili mireles Referred To Contact Diagnoses Morbid obesity, unspecified obesity type (HCC-CMS) S/P laparoscopic sleeve gastrectomy Procedures THIAMIN (VITAMIN B1), WB Allen Thompson PA-C [address] [place] [phone] Referral ID Status Reason Start Date Expiration Date Visits Re quested Visits Authorized [id number] Closed 08/26/2016 1 1 * Laboratory Services (Routine) - Closed Specialty Diagnoses / Procedures Referred By Wili t Referred To Contact Diagnoses Morbid obesity, unspecified obesity type (HCC-CMS) S/P laparoscopic sleeve gastrectomy Procedures [facility] Allen Thompson PA-C [address] [place], [place] [phone] Referral ID Status Reason Start Date Expiration Date Visits Re quested Visits Authorized [id number] Closed 08/26/2016 1 1 * Laboratory Services (Routine) - Closed Specialty Diagnoses / Procedures Referred By Wili mireles Referred To Contact Diagnoses Morbid obesity, unspecified obesity type (HCC-CMS) S/P laparoscopic sleeve gastrectomy Procedures IRON Allen Thompson PA-C [address] [place] [phone] Referral ID Status Reason Start Date Expiration Date Visits Re quested Visits Authorized [id number] Closed 08/26/2016 1 1 * Laboratory Services (Routine) - Closed Specialty Diagnoses / Procedures Referred By Wili t Referred To Contact Diagnoses Morbid obesity, unspecified obesity type (HCC-CMS) S/P laparoscopic sleeve gastrectomy Procedures FERRITIN Allen Thompson PA-C [address] [place] [phone] Referral ID Status Reason Start Date Expiration Date Visits Re quested Visits Authorized [id number] Closed 08/26/2016 1 1 * Laboratory Services (Routine) - Closed Specialty Diagnoses / Procedures Referred By Wili t Referred To Contact Diagnoses Morbid obesity, unspecified obesity type (HCC-CMS) S/P laparoscopic sleeve gastrectomy Procedures CREATININE Allen Thompson PA-C [address] [place], [place] [phone] Referral ID Status Reason Start Date Expiration Date Visits Re quested Visits Authorized [id number] Closed 08/26/2016 1 1 * Laboratory Services (Routine) - Closed Specialty Diagnoses / Procedures Referred By Contac t Referred To Contact Diagnoses Morbid obesity, unspecified obesity type (HCC-CMS) S/P laparoscopic sleeve gastrectomy Procedures HEMAGRAM Allen Thompson PA-C [address] [place], [place] [phone] Referral ID Status Reason Start Date Expiration Date Visits Re quested Visits Authorized [id number] Closed 08/26/2016 1 1 * Laboratory Services (Routine) - Closed Specialty Diagnoses / Procedures Referred By Contac t Referred To Contact Diagnoses Morbid obesity, unspecified obesity type (HCC-CMS) S/P laparoscopic sleeve gastrectomy Procedures CALCIUM Allen Thompson PA-C [address] [place], [place] [phone] Referral ID Status Reason Start Date Expiration Date Visits Re quested Visits Authorized [id number] Closed 08/26/2016 1 1 * Laboratory Services (Routine) - Closed Specialty Diagnoses / Procedures Referred By Contac t Referred To Contact Diagnoses Morbid obesity, unspecified obesity type (HCC-CMS) S/P laparoscopic sleeve gastrectomy Procedures VITAMIN B12 Allen Thompson PA-C [address] [place], [place] [phone] Referral ID Status Reason Start Date Expiration Date Visits Re quested Visits Authorized [id number] Closed 08/26/2016 1 1 Reason for Visit * Reason Comments Obesity POST OP SLEEVE 6 MON THS (09/05/15) Encounter Details Date Type Department Care Team (Late st Contact Info) Description 03/09/2016 9:30 EDT Office Visit [facility] Bariatric Surgery [place] [address] [place] [address] Allen Thompson, PA-C [address] [place] [address], [facility], Level [address] [place] [address] Morbid obesity, unspecified obesity type (CMS-HCC) (HCC-CMS) (Primary Dx); S/P laparoscopic sleeve gastrectomy; Vitamin D deficiency Social History Tobacco Use Types Packs/Day Years [...] Weight 92.7 kg (204 lb 6.4 oz) 03/09/2016 0905 E DT Height 172.7 cm (5' 7.99) 03/09/2016 0905 EDT Body Mass Index 31.09 03/09/2016 0905 EDT documented in this encounter Functional Status [...] as of this encounter Progress Notes * JuliaLuxu, RD - 03/09/2016 0943 EDT Nutrition Post Op Visit: Gastric Sleeve Subjective: Patient returns to clinic for post op nutritional counseling following bariatric surgery ~ 6 months ago. Questionnaire Reviewed: Yes Intolerance Episodes: yes dumping with sweets Food Intolerances: Sweets, avoids rice Current Exercise:Alejandro [employer] exercise DVD 30 min X 2 per [...] since surgery Supplement Usage: Type Amount MVT Earnest Berkowitz B12 500 mcg Calcium w/Vit D 600 mg X2 B Complex X1 Recent Labs:No new labs; last vitamin D low Assessment: Adequate Meal Frequency: Yes Adequate Meal Composition: Yes Exercise Adequacy: Yes Nutritional Issues: Tia has been eating regular meals and takes a [email or web address] Coffee protein drink(20 g protein each) if [...] One a day; continue Ca/Vit D,B12 and B- complex; increase MVM to 2 pills a day Initiate food logs Education Provided: Weight Control:1-2 lbs per week Other:follow-up labs * Allen Thompson PA - 03/09/2016 8094 EDT 03/09/2016 Tia Spain is here in [...] in 6 months Seen and discussed with [employer] at this visit. MARGARITA Gomez 03/09/2016 9:50 documented in this encounter Plan of Treatment Upcoming Encounters Date Type Department Care Team (Late st Contact Info) Description 04/27/2024 14:30 EDT Telemedicine [facility] Neurology - [address] [place] [address] [place], [place] [phone] Kj Gloria MD PhD 1 [facility], Level [address] [place] [phone] 04/30/2024 9:30 EDT Office Visit [facility] Interventional Pain [address] [place] [address] Catalino Garrett MD 62 [facility] [address] [place] [address] 09/18/2024 11:00 EST Office Visit [facility] Bariatric Surgery [facility] [address] [place], [place] [phone] Allen Thompson PA-C 111 [facility], [facility], Level [address] [place] [phone] documented as of this encounter Results * (ABNORMAL) VITAMIN D (25,OH) (09/17/2016) 25OH Vitamin D Tot, External 21.9(A) 30 - 100 [facility] Blood specimen (specimen) 09/17/2016 Allen Thompson PA-C CHEMISTRY & BLOOD GAS ORDERABLES [facility] * THIAMIN (VITAMIN B1), WB (09/17/2016) Thiamine, External 106 [facility] Comment, External [facility] Blood specimen (specimen) 09/17/2016 Allen A Chutter-Cressy PA-C CHEMISTRY & BLOOD GAS ORDERABLES [facility] * PTH INTACT (09/17/2016) PTH, External [address] [facility] Blood specimen (specimen) 09/17/2016 Allen A Chutter-Cressy PA-C CHEMISTRY & BLOOD GAS ORDERABLES [facility] * IRON (09/17/2016) Iron, External 100 [facility] Blood specimen (specimen) 09/17/2016 Allen A Chutter-Cressy PA-C CHEMISTRY & BLOOD GAS ORDERABLES [facility] * FERRITIN (09/17/2016) Ferritin, External 10 [facility] Blood specimen (specimen) 09/17/2016 Allen A Chutter-Cressy PA-C CHEMISTRY & BLOOD GAS ORDERABLES [facility] * CREATININE (09/17/2016) Creatinine, External 0.74 [facility] GFR, Calculated, External [facility] Blood specimen (specimen) 09/17/2016 Allen A Chutter-Cressy PA-C CHEMISTRY & BLOOD GAS ORDERABLES [facility] * HEMAGRAM (09/17/2016) HCT, External 39.1 [facility] MCH, External 28.8 [facility] MCV, External 88.1 [facility] MCHC, External 32.7 [facility] Hemoglobin, External 12.8 [facility] WBC, External 6.07 [facility] RBC, External 4.44 [facility] PLT, External 342 [facility] RDW-CV, External 14.3 [facility] Blood specimen (specimen) 09/17/2016 Allen MarroquinSimPrints PA-C HEMATOLOGY & PF4 ORDERABLES Performing Organization Address City/[facility]/ZIP Co de Phone Number [facility] * CALCIUM (09/17/2016) Calcium, External 8.6 [facility] Calculated Calcium, External [facility] Blood specimen (specimen) 09/17/2016 Allen LeivaCrown in Town PA-C CHEMISTRY & BLOOD GAS ORDERABLES Performing Organization Address City/[facility]/ZIP Co de Phone Number [facility] * VITAMIN B12 (09/17/2016) Vitamin B-12, External 392 [facility] Blood specimen (specimen) 09/17/2016 Allen Trinh OesiaerGame Digital PA-C CHEMISTRY & BLOOD GAS ORDERABLES [facility] * THIAMIN (VITAMIN B1), WB (03/09/2016 9:54 EDT) Thiamin (Vit B1), WB 117 70 - 180 nmol/L 03/13/2016 7:59 EDT [facility] Comment: Performed by: [facility] [place], [address], [place] [address], Bridal Gown Fitter: Yoly Bhatt, Ph.D. Blood specimen (specimen) BLOOD SPECIMEN / Unknown 03/09/2016 9:54 EDT 03/09/2016 11:24 EDT Allen Marroquiner-Cressy PA-C CHEMISTRY & BLOOD GAS ORDERABLES Performing Organization Address City/[facility] Co de Phone Number [facility] [address] [place] [address] * VITAMIN D (25,OH) (03/09/2016 9:54 EDT) 25OH Vitamin D Tot 31.5 30 - 100 ng/ml 03/09/2016 14:03 EDT [facility] Comment: Reference Range: Deficient = <10 ng/ml Insufficient = 10-30 ng/ml Sufficient = 30-100 ng/ml Toxic = >100 ng/ml Blood specimen (specimen) BLOOD SPECIMEN / Unknown 03/09/2016 9:54 EDT 03/09/2016 11:24 EDT Allen Marroquiner-Cressy PA-C CHEMISTRY & BLOOD GAS ORDERABLES Performing Organization Address [facility] Co de Phone Number [facility] [address] [place] [address] * IRON (03/09/2016 9:54 EDT) Iron 69 37 - 170 ug/dl 03/09/2016 11:48 EDT [facility] Blood specimen (specimen) BLOOD SPECIMEN / Unknown 03/09/2016 9:54 EDT 03/09/2016 11:24 EDT Allen Marroquiner-Cressy PA-C CHEMISTRY & BLOOD GAS ORDERABLES Performing Organization Address [facility] Co de Phone Number [facility] [address] [place] [address] * FERRITIN (03/09/2016 9:54 EDT) Ferritin 19 10 - 291 ng/ml 03/09/2016 12:42 EDT [facility] Blood specimen (specimen) BLOOD SPECIMEN / Unknown 03/09/2016 9:54 EDT 03/09/2016 11:24 EDT Allen Thompson PA-C CHEMISTRY & BLOOD GAS ORDERABLES [facility] [address] [place] [address] documented in this encounter Visit Diagnoses Diagnosis Morbid obesity, unspecified obesity type ([facility]-CMS)- Primary S/P laparoscopic sleeve gastrectomy Bariatric surgery status Vitamin D deficiency Unspecified vitamin D deficiency documented in this encounter Care Teams Cnc Mill Set Up Operator Relationship Specialty Start Date End Date Juma Herrera MD [address] [facility] [place] [phone] PCP - General 09/25/12 12/07/18 documented as of this encounter
--- OUTSIDE RECORDS SUMMARY | 2024-04-22 23:50 | XMS_ITS | Encounter Summary ---
Author Organization [facility] Address [address] [place] [address] Care Team Providers Care Human Resources Operations Coordinator Name Role Phone Juma Herrera MD Primary Care Provider [phone] Reason for Visit * Reason Comments Obesity POST OP SLEEVE 2 BRENDA JACKSON (09/05/15) Encounter Details Date Type Department Care Team (Late st Contact Info) Description 09/20/2015 13:45 EST Office Visit [facility] Bariatric Surgery [facility] [address], [place] [phone] Master Ugarte MD [address] [place] [address] S/P laparoscopic sleeve gastrectomy (Primary [...] as of this encounter Progress Notes * JuliaLux, RD - 09/20/2015 1522 EST Nutrition Post Op Visit: Gastric Sleeve Subjective: Patient returns to clinic for post op nutritional counseling following bariatric surgery ~ 2 weeks ago.I am hungry. I started [...] recommendations and encouraged her to review the menusshe has completed for her blended diet homework. Also suggested unflavored whey protein powder to add to her foods as she is tired of [...] lbs per week Other:Diet progression reviewed verbally * Master Ugarte MD - 09/20/2015 1425 EST 09/20/2015 Tia Spain is here in follow-up to her laparoscopic sleeve gastrectomy. The weight trend for the patient is: , to 126.463 kg (278 lb [...] this encounter. 3. Seen and discussed with Vocational Trainer at this visit. Master Ugarte MD 09/20/2015 14:25 documented in this encounter Plan of Treatment Upcoming Encounters Date Type Department Care Team (Late st Contact Info) Description 04/27/2024 14:30 EDT Telemedicine [facility] Neurology - [address] [address] Kj Gloria MD PhD 1 [facility], [address] [place] [phone] 04/30/2024 9:30 EDT Office Visit [facility] Interventional Pain [address] [place] [address] Catalino Garrett MD [address] [place] [address] 09/18/2024 11:00 EST Office Visit [facility] Bariatric Surgery [facility] [address] [place], [place] [address] Allen Thompson PA-C 111 [facility], [address] [place] [phone] documented as of this encounter Visit Diagnoses Diagnosis S/P laparoscopic sleeve gastrectomy- Primary Bariatric surgery status documented in this encounter Care Teams Human Resources Operations Coordinator Relationship Specialty Start Date End Date Juma Herrera MD [address] [facility] [place] [address] PCP - General 09/25/12 12/07/18 documented as of this encounter
--- OUTSIDE RECORDS SUMMARY | 2024-04-22 23:50 | XMS_ITS | Encounter Summary ---
Author Organization [facility] Address [address] [place] [address] Care Team Providers Care Quality Assurance Supervisor Final Name Role Phone Juma Herrera MD Primary Care Provider [phone] Reason for Referral * Radiology Services (Routine) - New Request Specialty Diagnoses / Procedures Referred By Contac t Referred To Contact Diagnoses Right shoulder pain, unspecified chronicity Procedures MR EXTREMITY SHOULDER WO CONTRAST Starr Hart PA-C [address] [place] [address] Referral ID Status Reason Start Date Expiration Date V isits Requested Visits Authorized [id number] New Request 05/20/2018 1 1 * Radiology Services (Routine) - New Request Specialty Diagnoses / Procedures Referred By Contac t Referred To Contact Diagnoses Neck pain Procedures MR CERVICAL SPINE WO CONTRAST Starr Hart PA-C [address] [place] [address] Referral ID Status Reason Start Date Expiration Date V isits Requested Visits Authorized [id number] New Request 05/20/2018 1 1 * Radiology Services (Routine/Next Available) - New Request Specialty Diagnoses / Procedures Referred By Contac t Referred To Contact Diagnoses Right shoulder pain, unspecified chronicity Procedures MSK US SHOULDER Starr Hart PA-C [address] [place] [address] Referral ID Status Reason Start Date Expiration Date V isits Requested Visits Authorized [id number] New Request 05/20/2018 1 1 Encounter Details Date Type Department Care Team (Late st Contact Info) Description 05/20/2018 Orders Only [facility] Sports Medicine Program - [address] [place], [place] [id number] Starr Hart PA-C Right shoulder pain, unspecified chronicity (Primary Dx); Neck pain Social History Tobacco Use Types Packs/Day [...] Telemedicine [facility] Neurology - [facility] [address] [place] [address] Kj Gloria MD PhD 1 [facility] Level [address] [place] [address] 04/30/2024 9:30 EDT Office Visit [facility] Interventional Pain [address] [place], [place] [phone] Catalino Garrett MD [address] [place] [address] 09/18/2024 11:00 EST Office Visit [facility] Bariatric Surgery - [place] [address] [place], [place] [address] Allen Thompson PA-C 111 [facility] [address] [place] [address] documented as of this encounter Procedures Procedure Name Priority Date/Time Associated Diagnosis Comments MR EXTREMITY SHOULDER WO CONTRAST Routine 07/14/2018 9:35 EST Right shoulder pain, unspecified chronicity MR CERVICAL SPINE WO CONTRAST Routine 07/14/2018 9:25 EST Neck pain MSK US SHOULDER Routine 05/20/2018 13:04 EDT Right shoulder pain, unspecified chronicity documented in this encounter Results * MR EXTREMITY SHOULDER WO CONTRAST (07/14/2018 9:35 EST) Anatomical Region Laterality Modality Other 07/14/2018 9:35 EST 07/14/2018 11:17 EST Narrative 07/14/2018 11:17 EST MR EXTREMITY RIGHT SHOULDER WO CONTRAST ??07/14/2018 9:35 AM Clinical History/Comments: M25.511-Pain in right [id number]; right shoulder pain COMPARISON: Right shoulder radiographs on May 20, 2018. TECHNIQUE: Routine MRI of the right shoulder utilizing a 12 cm imaging [id number]. No intravenous contrast administration. FINDINGS Rotator Cuff: Supraspinatus: The supraspinatus tendon shows a small articular sided partial tear just proximal to its footprint on the greater tuberosity. Overall, the articular sided partial tear measures about 4 mm in AP extent and with about 5 mm retraction of the torn tendon fibers (sagittal #7, coronal #14). These abnormalities occur in a background of moderate supraspinatus tendinosis. No muscle atrophy or fatty infiltration demonstrated. Infraspinatus: The infraspinatus tendon shows moderate tendinosis with no discrete tear visualized. No significant muscle atrophy or fatty infiltration demonstrated. Teres Minor: The teres minor tendon is intact. No muscle atrophy or fatty infiltration demonstrated. Subscapularis: The subscapularis tendon shows moderate tendinosis with no discrete tear visualized. No significant muscle atrophy or fatty infiltration demonstrated. Long head biceps tendon: The long head biceps tendon is intact and appears normally positioned within the bicipital groove. Labrum: There is minimal degenerative fraying along the chondrolabral junction of the superior labrum. Cartilage: Minimal glenohumeral joint degenerative changes are visualized. Joint Space: No sizable glenohumeral joint effusion demonstrated. Acromioclavicular Joint: ??There is moderate to severe acromioclavicular joint osteoarthrosis without significant size inferior pointing osteophytes. There is [...] for details. 2. The infraspinatus tendon shows moderate tendinosis with no discrete tear visualized. 3. The subscapularis tendon shows moderate tendinosis with no discrete tear visualized. 4. Moderate to severe acromioclavicular joint osteoarthrosis. 5. Mild findings of subacromial, subdeltoid bursitis. 6. Slight lateral downsloping of the anterior acromion, nonspecific though may be associated with subacromial impingement syndrome, a clinical diagnosis. Please correlate accordingly. 7. Additional findings as above. . Procedure Note Isiah Morales MD - 07/14/2018 MR EXTREMITY RIGHT SHOULDER WO CONTRAST 07/14/2018 9:35 AM Clinical History/Comments: M25.511-Pain in right [id number]; right shoulder pain COMPARISON: Right shoulder radiographs on May 20, 2018. TECHNIQUE: Routine MRI of the right shoulder utilizing a 12 cm imaging cirme-bv-bche. No intravenous contrast administration. FINDINGS Rotator Cuff: Supraspinatus: The supraspinatus tendon shows a small articular sided partial tear just proximal to its footprint on the greater tuberosity. Overall, the articular sided partial tear measures about 4 mm in AP extent and with about 5 mm retraction of the torn tendon fibers (sagittal #7, coronal #14). These abnormalities occur in a background of moderate supraspinatus tendinosis. No muscle atrophy or fatty infiltration demonstrated. Infraspinatus: The infraspinatus tendon shows moderate tendinosis with no discrete tear visualized. No significant muscle atrophy or fatty infiltration demonstrated. Teres Minor: The teres minor tendon is intact. No muscle atrophy or fatty infiltration demonstrated. Subscapularis: The subscapularis tendon shows moderate tendinosis with no discrete tear visualized. No significant muscle atrophy or fatty infiltration demonstrated. Long head biceps tendon: The long head biceps tendon is intact and appears normally positioned within the bicipital groove. Labrum: There is minimal degenerative fraying along the chondrolabral junction of the superior labrum. Cartilage: Minimal glenohumeral joint degenerative changes are visualized. Joint Space: No sizable glenohumeral joint effusion demonstrated. Acromioclavicular Joint: There is moderate to severe acromioclavicular joint osteoarthrosis without significant size inferior pointing osteophytes. There is [...] for details. 2. The infraspinatus tendon shows moderate tendinosis with no discrete tear visualized. 3. The subscapularis tendon shows moderate tendinosis with no discrete tear visualized. 4. Moderate to severe acromioclavicular joint osteoarthrosis. 5. Mild findings of subacromial, subdeltoid bursitis. 6. Slight lateral downsloping of the anterior acromion, nonspecific though may be associated with subacromial impingement syndrome, a clinical diagnosis. Please correlate accordingly. 7. Additional findings as above. . Starr Hart PA-C [place] MRI ORDERABLES * MR CERVICAL SPINE WO CONTRAST (07/14/2018 9:25 EST) Anatomical Region Laterality Modality Other 07/14/2018 9:25 EST 07/14/2018 13:55 EST Narrative 07/14/2018 13:55 EST MRI CERVICAL SPINE WITHOUT CONTRAST HISTORY: Right arm pain, prior fusion. TECHNIQUE: MRI of the cervical spine without contrast. COMPARISON: ??Entire spine radiograph one hour prior and MRI cervical spine 03/28/2012. FINDINGS: There is straightening of cervical lordosis. There are changes from prior anterior fusion of C6-C7. Vertebral bodies are normal in height. ??Intervertebral discs are normal in height. ??Bone marrow signal is unremarkable. ??No suspicious osseous lesions. The cervical spinal cord demonstrates normal signal intensity. The cerebellar tonsils are low-lying, particularly on the left and measuring approximately 5 to 6 mm below the foramen magnum. There is no significant crowding of the foramen magnum. Incidental note is made of a partially empty sella. C2-C3: No spinal canal or neural foraminal stenosis. There is a minimal left facet arthropathy. C3-C4: ??There is no significant spinal canal or neural foraminal stenosis. There is mild left facet arthropathy. C4-C5: There is a small disc osteophyte complex which flattens the ventral thecal sac and causes mild narrowing of the spinal canal. There is mild left neural foraminal stenosis due to uncovertebral hypertrophy. C5-C6: There is a small disc osteophyte complex which causes mild spinal canal narrowing. There is no significant neural foraminal stenosis. C6-C7: There appears to be near complete osseous fusion of C6-C7. No spinal canal stenosis. There is mild right neural foraminal stenosis due to uncovertebral hypertrophy. No significant left neural foraminal stenosis. C7-T1: No significant spinal canal stenosis. There is no significant neural foraminal stenosis. The included soft tissues are unremarkable. IMPRESSION: No evidence of hardware malpositioning or failure. Discogenic and facet degenerative changes, notable for mild neural foraminal stenosis on the right at C6-C7 left at C4-C5 and mild narrowing of the spinal canal at C4-C5 and C5-C6. Low-lying cerebellar tonsils, particularly on the left, measuring approximately 5 to 6 mm below the foramen magnum, likely an incidental Chiari I malformation. No cervical cord syrinx. I have personally reviewed the images and the above interpretation and agree with the findings. Procedure Note Barak Ramon MD - 07/14/2018 MRI CERVICAL SPINE WITHOUT CONTRAST HISTORY: Right arm pain, prior fusion. TECHNIQUE: MRI of the cervical spine without contrast. COMPARISON: Entire spine radiograph one hour prior and MRI cervical spine 03/28/2012. FINDINGS: There is straightening of cervical lordosis. There are changes from prior anterior fusion of C6-C7. Vertebral bodies are normal in height. Intervertebral discs are normal in height. Bone marrow signal is unremarkable. No suspicious osseous lesions. The cervical spinal cord demonstrates normal signal intensity. The cerebellar tonsils are low-lying, particularly on the left and measuring approximately 5 to 6 mm below the foramen magnum. There is no significant crowding of the foramen magnum. Incidental note is made of a partially empty sella. C2-C3: No spinal canal or neural foraminal stenosis. There is a minimal left facet arthropathy. C3-C4: There is no significant spinal canal or neural foraminal stenosis. There is mild left facet arthropathy. C4-C5: There is a small disc osteophyte complex which flattens the ventral thecal sac and causes mild narrowing of the spinal canal. There is mild left neural foraminal stenosis due to uncovertebral hypertrophy. C5-C6: There is a small disc osteophyte complex which causes mild spinal canal narrowing. There is no significant neural foraminal stenosis. C6-C7: There appears to be near complete osseous fusion of C6-C7. No spinal canal stenosis. There is mild right neural foraminal stenosis due to uncovertebral hypertrophy. No significant left neural foraminal stenosis. C7-T1: No significant spinal canal stenosis. There is no significant neural foraminal stenosis. The included soft tissues are unremarkable. IMPRESSION: No evidence of hardware malpositioning or failure. Discogenic and facet degenerative changes, notable for mild neural foraminal stenosis on the right at C6-C7 left at C4-C5 and mild narrowing of the spinal canal at C4-C5 and C5-C6. Low-lying cerebellar tonsils, particularly on the left, measuring approximately 5 to 6 mm below the foramen magnum, likely an incidental Chiari I malformation. No cervical cord syrinx. I have personally reviewed the images and the above interpretation and agree with the findings. Starr DEY MRI ORDERABLES * MSK US SHOULDER (05/20/2018 13:04 EDT) Anatomical Region Laterality Modality Other 05/20/2018 13:0 4 EDT Narrative 05/20/2018 13:04 EDT Non Reportable Exam Procedure Note TRAINING DEVELOPMENT DIRECTOR, IMAGING - 05/26/2018 Non Reportable Exam Starr DEY US ORDERABLES documented in this encounter Visit Diagnoses Diagnosis Right shoulder pain, unspecified chronicity- Primary Neck pain Cervicalgia documented in this encounter Care Teams Quality Assurance Supervisor Final Relationship Specialty Start Date End Date Juma Herrera MD [address] [facility] [place] [address] PCP - General 09/25/12 12/07/18 documented as of this encounter
--- OUTSIDE RECORDS SUMMARY | 2024-04-22 23:50 | XMS_ITS | Encounter Summary ---
Author Organization [facility] Address [address] [place] [address] Care Team Providers Care Stitch Welder Name Role Phone Juma Herrera MD Primary Care Provider [phone] Encounter Details Date Type Department Care Team (Late st Contact Info) Description 03/09/2016 Phlebotomy Only [address] [address] Parking Officer, Outpatient Morbid obesity, unspecified obesity type (CMS-HCC) ([facility]-CMS); S/P laparoscopic sleeve gastrectomy; Vitamin D deficiency [...] Description 04/27/2024 14:30 EDT Telemedicine [facility] Neurology - [address] [place] [address] [place] [address] Kj Gloria MD PhD 1 [facility] Level [address] [place] [phone] 04/30/2024 9:30 EDT Office Visit [facility] Interventional Pain [address] [place] [address] Catalino Garrett MD 62 [facility] [address] [place] [address] 09/18/2024 11:00 EST Office Visit [facility] Bariatric Surgery - [place] [address] [place], [place] [address] Allen Thompson, ELISABETH 111 [facility], [address] [place] [phone] documented as of this encounter Procedures Procedure Name Priority Date/Time Associated Diagnosis Comments THIAMIN (VITAMIN B1), WB Routine 03/09/2016 9:54 EDT Morbid obesity, unspecified obesity type ([facility]-HCC) ([facility]) S/P laparoscopic sleeve gastrectomy Vitamin D deficiency VITAMIN D (25,[place]) Routine 03/09/2016 9:5 4 EDT Morbid obesity, unspecified obesity type (CMS-HCC) ([facility]) S/P laparoscopic sleeve gastrectomy Vitamin D deficiency IRON Routine 03/09/2016 9:54 EDT Morbid obesity, unspecified obesity type (CMS-HCC) ([facility]-CMS) S/P laparoscopic sleeve gastrectomy Vitamin D deficiency FERRITIN Routine 03/09/2016 9:54 EDT Morbid obesity, unspecified obesity type (CMS-HCC) (HCC-CMS) S/P laparoscopic sleeve gastrectomy Vitamin D deficiency documented in this encounter Results * THIAMIN (VITAMIN B1), WB (03/09/2016 9:54 EDT) Pathologist [facility] Thiamin (Vit B1), WB 117 70 - 180 nmol/L 03/13/2016 7:59 EDT [facility] Comment: Performed by: [facility] [place], [address], [place] [address], Production Control Technologist: Yoly Bhatt, Ph.D. Blood specimen (specimen) BLOOD SPECIMEN / Unknown 03/09/2016 9:54 EDT 03/09/2016 11:24 EDT Allen Thompson PA-C CHEMISTRY & BLOOD GAS ORDERABLES Performing Organization Address City/[facility] Co de Phone Number [facility] [address] [place] [address] * VITAMIN D (25,[place]) (03/09/2016 9:54 EDT) [facility] 25OH Vitamin D Tot 31.5 30 - 100 ng/ml 03/09/2016 14:03 EDT [facility] Comment: Reference Range: Deficient = <10 ng/ml Insufficient = 10-30 ng/ml Sufficient = 30-100 ng/ml Toxic = >100 ng/ml Blood specimen (specimen) BLOOD SPECIMEN / Unknown 03/09/2016 9:54 EDT 03/09/2016 11:24 EDT Allen Thompson PA-C CHEMISTRY & BLOOD GAS ORDERABLES Performing Organization Address City/[facility] Co de Phone Number [facility] [address] [place] [address] * IRON (03/09/2016 9:54 EDT) Pathologist [facility] Iron 69 37 - 170 ug/dl 03/09/2016 11:48 EDT [facility] Blood specimen (specimen) BLOOD SPECIMEN / Unknown 03/09/2016 9:54 EDT 03/09/2016 11:24 EDT Allen Thompson PA-C CHEMISTRY & BLOOD GAS ORDERABLES Performing Organization Address [facility] Co de Phone Number [facility] [address] [place] [address] * FERRITIN (03/09/2016 9:54 EDT) Ferritin 19 10 - 291 ng/ml 03/09/2016 12:42 EDT [facility] Blood specimen (specimen) BLOOD SPECIMEN / Unknown 03/09/2016 9:54 EDT 03/09/2016 11:24 EDT Allne Thompson PA-C CHEMISTRY & BLOOD GAS ORDERABLES Performing Organization Address [facility] de Phone Number [facility] [address] [place] [address] documented in this encounter Visit Diagnoses Diagnosis Morbid obesity, unspecified obesity type ([facility]) S/P laparoscopic sleeve gastrectomy Bariatric surgery status Vitamin D deficiency Unspecified vitamin D deficiency documented in this encounter Care Teams Stitch Welder Relationship Specialty Start Date End Date Juma Herrera MD [address] [facility] [place] [phone] PCP - General 09/25/12 12/07/18 documented as of this encounter
--- OUTSIDE RECORDS SUMMARY | 2024-04-22 23:50 | XMS_ITS | Encounter Summary ---
Author Organization [facility] Address [address] [place] [address] Care Team Providers Care Juice Mixer Name Role Phone Juma Herrera MD Primary Care Provider [phone] Reason for Visit * Reason Onset Date Comments Paperwork request 05/11/2016 Needs all her appiointments and medicaitons sent to her for her disability claim, Encounter Details Date Type Department Care Team (Late st Contact Info) Description 05/11/2016 Telephone [facility] Bariatric Surgery - [place] [address] [place] [address] Master Ugarte MD [address] [place] [phone] Paperwork request (Needs all her appiointments and medicaitons sent to her for her disability claim, ) Social History Tobacco Use Types Packs/Day [...] Miscellaneous Notes * Telephone Encounter - Mary Rosales, RN - 05/14/2016 0842 EDT LMOVM stating that patient needs to call HIM for records request. If the [facility] sends us information regarding her disability claim asking for medical records, then we would send it directly to them. Electronically signed by Mary Rosales RN CBN documented in this encounter Plan of Treatment Upcoming Encounters Date Type Department Care Team (Late st Contact Info) Description 04/27/2024 14:30 EDT Telemedicine [facility] Neurology - [address] [phone] Kj Gloria MD PhD 1 [facility] 2 [place] [phone] 04/30/2024 9:30 EDT Office Visit [facility] Interventional Pain [address] [place], [place] [phone] Catalino Garrett MD 62 [facility] [address] [place] [address] 09/18/2024 11:00 EST Office Visit [facility] Bariatric Surgery - [place] [address] [place] [address] Allen Thompson, PA-C [address] [place] [address], [address] [place] [address] documented as of this encounter Visit Diagnoses Not on filedocumented in this encounter Care Teams Juice Mixer Relationship Specialty Start Date End Date Juma Herrera MD [address] [place] [address] PCP - General 09/25/12 12/07/18 documented as of this encounter
--- OUTSIDE RECORDS SUMMARY | 2024-04-22 23:50 | XMS_ITS | Encounter Summary ---
Author Organization [facility] Address [address] [place] [address] Care Team Providers Care Motor Transport Inspector Name Role Phone Juma Herrera MD Primary Care Provider [phone] Encounter Details Date Type Department Care Team (Late st Contact Info) Description 07/09/2018 Orders Only [facility] Sports Medicine Program [place] [address] Starr Hart PA-C Social History Tobacco Use Types Packs/Day Years [...] Description 04/27/2024 14:30 EDT Telemedicine [facility] Neurology - [address] [place], [place] [phone] Kj Gloria MD PhD 1 [facility], Level 2 [place] [phone] 04/30/2024 9:30 EDT Office Visit [facility] Interventional Pain 62 [facility] [place] [address] Catalino Garrett MD 62 [facility] [address] [place] [phone] 09/18/2024 11:00 EST Office Visit [facility] Bariatric Surgery [facility] [address] [place], [place] [address] Allen Thompson, PA-C 111 [facility], [facility], Level [address] [place] [address] documented as of this encounter Visit Diagnoses Not on filedocumented in this encounter Care Teams Motor Transport Inspector Relationship Specialty Start Date End Date Juma Herrera MD [address] [facility] [place] [phone] PCP - General 09/25/12 12/07/18 documented as of this encounter
--- OUTSIDE RECORDS SUMMARY | 2024-04-22 23:50 | XMS_ITS | Encounter Summary ---
Author Organization [facility] Address [address] [place] [address] Care Team Providers Care Flame Cutting Supervisor Name Role Phone Juma Herrera MD Primary Care Provider [phone] Encounter Details Date Type Department Care Team (Late st Contact Info) Description 07/09/2018 Orders Only [facility] Sports Medicine Program [place] [address] Starr Hart PA-C Social History [...] [facility] Neurology - [address] [place] [address] [place], [place] [address] Kj Gloria MD PhD 1 [facility], Level 2 [place] [phone] 04/30/2024 9:30 EDT Office Visit [facility] Interventional Pain 62 [facility] [place] [address] Catalino Garrett MD 62 [facility] [address] [place] [phone] 09/18/2024 11:00 EST Office Visit [facility] Bariatric Surgery [facility] [address] [place], [place] [address] Allen Thompson, PA-C 111 [facility], [facility], Level 5 [place] [address] documented as of this encounter Visit Diagnoses Not on filedocumented in this encounter Care Teams Flame Cutting Supervisor Relationship Specialty Start Date End Date Juma Herrera MD [address] [facility] [place] [phone] PCP - General 09/25/12 12/07/18 documented as of this encounter
--- OUTSIDE RECORDS SUMMARY | 2024-04-22 23:50 | XMS_ITS | Encounter Summary ---
Author Organization [facility] Address [address] [place] [address] Care Team Providers Care Fire Operations Forester Name Role Phone Juma Herrera MD Primary Care Provider [phone] Reason for Visit * Reason Comments Obesity 1ST POST OP SLEEVE ( 09/05/15) Encounter Details Date Type Department Care Team (Late st Contact Info) Description 09/14/2015 13:15 EST Office Visit [facility] General Surgery [facility] [address] [place], [place] [phone] Master Ugarte MD [address] [place] [address] S/P laparoscopic sleeve gastrectomy (Primary [...] as of this encounter Progress Notes * Lux Dumont RD - 09/16/2015 9632 EST Nutrition Post Op Visit: Gastric Sleeve Subjective: Patient returns to clinic for post op nutritional counseling following bariatric surgery ~ 9 days ago. Questionnaire Reviewed: Yes Intolerance [...] Other:reviewed diet progression; follow-up in 1 week * Master Ugarte MD - 09/14/2015 7673 EST 09/14/2015 Tia Spain is here in follow-up to her laparoscopic sleeve gastrectomy. The weight trend for the patient is: , to 123.56 kg (272 lb [...] peace yfn removed Seen and discussed with Account Installer at this visit. Master Ugarte MD 09/14/2015 13:34 documented in this encounter Plan of Treatment Upcoming Encounters Date Type Department Care Team (Late st Contact Info) Description 04/27/2024 14:30 EDT Telemedicine [facility] Neurology - [address] [place] [address] [place], [place] [address] Kj Gloria MD PhD 1 [facility], Level 2 [place] [phone] 04/30/2024 9:30 EDT Office Visit [facility] Interventional Pain 62 [facility] [place], [place] [phone] Catalino Garrett MD 62 [facility] [address] [place] [address] 09/18/2024 11:00 EST Office Visit [facility] Bariatric Surgery - [place] [address] [place] [address] Allen Thompson PA-C 111 [facility], [facility] 5 [place] [address] documented as of this encounter Visit Diagnoses Diagnosis S/P laparoscopic sleeve gastrectomy- Primary Bariatric surgery status documented in this encounter Historical Medications * This list may reflect changes made after this encounter. Medication Sig Dispensed Refills Start Date End Date diphenhydrAMINE (BENYLIN) 12.5 mg/5 mL syrup Take 50 mg by mouth every 4 hours. Reported on 09/28/2016 09/28/2016 added in this encounter Care Teams Fire Operations Forester Relationship Specialty Start Date End Date Juma Herrera MD [address] [facility] [place] [address] PCP - General 09/25/12 12/07/18 documented as of this encounter
--- OUTSIDE RECORDS SUMMARY | 2024-04-22 23:50 | XMS_ITS | Encounter Summary ---
Author Organization [facility] Address [address] [place] [address] Care Team Providers Care Courtroom Deputy Or Calendar Clerk Name Role Phone Juma Herrera MD Primary Care Provider [phone] Reason for Visit * Reason Comments Obesity Post Op sleeve 3 yea r (09/05/2015) Encounter Details Date Type Department Care Team (Late st Contact Info) Description 09/26/2018 10:00 EST Office Visit [facility] Bariatric Surgery [facility] [address] [place] [address] Allen Thompson, PA-C [address] [place] [address], [facility], Level [address] [place] [address] Morbid obesity (HCC-CMS) (Primary Dx); S/P laparoscopic sleeve gastrectomy; BMI 30.0-30.9,adult Discharge Disposition: Auto Discharge Social History Tobacco [...] kg (199 lb 6.4 oz) 09/26/[address] Height 172.7 cm (5' 7.99) 09/26/2018 1026 [...] Diagnosis E66.01 Morbid (severe) obesity due to excess calories-E66.01[ICD-10-CM] Z98.84 Bariatric surgery status-Z98.84[ICD-10-CM] Z68.30 Body mass index (BMI) 30.0-30.9, adult-Z68.30[ICD-10-CM] documented in this encounter Discharge Disposition Disposition Code Departure Means Destination Auto Discharge documented in this encounter Progress Notes * Aneta Heredia, RD - 09/26/2018 1000 EST Nutrition Post Op Visit: Gastric Sleeve Subjective: Patient returns to clinic for post op nutritional counseling following bariatric surgery ~3 years ago. Questionnaire Reviewed: Yes Intolerance Episodes: [...] only dry cereal or toast at breakfast, suggested ideas for adding protein. C/o thirst, needs to [...] per week Other: follow up 3 months * Allen Thompson PA - 09/26/2018 1000 EST 09/30/2018 Tia Arellano Grabiel is here in follow-up [...] Morbid obesity with BMI of 45.0-49.9, adult ([facility]) SUBJECTIVE: Emesis: No complaints of emesis Nausea: [...] followed by PCP Seen and discussed with High School Director at this visit. MARGARITA Gomez 09/30/2018 11:12 documented in this encounter Plan of Treatment Upcoming Encounters Date Type Department Care Team (Late st Contact Info) Description 04/27/2024 14:30 EDT Telemedicine [facility] Neurology - [address] [id number] Kj Gloria MD PhD 1 [facility] Level 2 [place] [phone] 04/30/2024 9:[address] [facility] Interventional Pain 62 [facility] [place] [address] Catalino Garrett MD 62 [facility] [address] [place] [address] 09/18/2024 11:00 EST Office Visit [facility] Bariatric Surgery [facility] [address] [place], [place] [address] Allen Thompson PA-C 111 [facility], [facility], Level [address] [place] [phone] documented as of this encounter Visit Diagnoses Diagnosis Morbid obesity ([facility])- Primary Morbid obesity S/P laparoscopic sleeve gastrectomy Bariatric surgery status BMI 30.0-30.9,adult Body Mass Index 30.0-30.9, adult documented in this encounter Historical Medications * This list may reflect changes made after this encounter. Medication Sig Dispensed Refills Start Date End Date cortisone acetate (CORTISONE IM) Inject 1 Dose into the muscle every 3 months. added in this encounter Care Teams Courtroom Deputy Or Calendar Clerk Relationship Specialty Start Date End Date Juma Herrera MD [address] [facility] [place] [phone] PCP - General 09/25/12 12/07/18 documented as of this encounter
--- OUTSIDE RECORDS SUMMARY | 2024-04-22 23:50 | XMS_ITS | Encounter Summary ---
Author Organization [facility] Address [address] [place] [address] Care Team Providers Care Credit Products Officer Name Role Phone Juma Herrera MD Primary Care Provider [phone] Encounter Details Date Type Department Care Team (Latest Contact Info) Description 07/14/2018 7:10 EST - 07/14/2018 23:59 EST Hospital Encounter [facility] - [address] [address] Starr Hart, PALizettC Discharge Disposition: Auto Discharge Social History Tobacco [...] Diagnoses Diagnosis M75.101 Unsp rotatr-cuff tear/ruptr of right shoulder, not trauma-M75.101[ICD-10-CM] M75.81 Other shoulder lesions, right shoulder-M75.81[ICD-10-CM] M19.011 Primary osteoarthritis, right shoulder-M19.011[ICD-10-CM] 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 Interventional Pain [address] [place], [place] [phone] Catalino Garrett MD 62 [facility] [address] [place] [address] 09/18/2024 11:00 EST Office Visit [facility] Bariatric Surgery - [place] [address] [place] [address] Allen Thompson, PA-C 111 [facility], Level [address] [place] [address] documented as of this encounter Visit Diagnoses Not on filedocumented in this encounter Care Teams Credit Products Officer Relationship Specialty Start Date End Date Juma Herrera MD [address] [place] [phone] PCP - General 09/25/12 12/07/18 documented as of this encounter
--- OUTSIDE RECORDS SUMMARY | 2024-04-22 23:50 | XMS_ITS | Encounter Summary ---
Author Organization [facility] Address [address] [place] [address] Care Team Providers Care Escort Service Attendant Name Role Phone Juma Herrera MD Primary Care Provider Reason for Visit * Reason Comments Obesity post op sleeve 6 wee ks Encounter Details Date Type Department Care Team (Latest Contact Info) Description 11/01/2015 12:30 EST Post-op Visit [facility] Bariatric Surgery - [place] [address] [place], [place] [phone] Master Ugarte MD [address] [place] [address] S/P laparoscopic sleeve gastrectomy (Primary [...] as of this encounter Progress Notes * Julia Lux Ana Luisa, RD - 11/01/2015 5027 EST Nutrition Post Op Visit: Gastric Sleeve Subjective: Patient returns to clinic for post op nutritional counseling following bariatric surgery ~ 6 weeks ago. Questionnaire Reviewed: Yes Intolerance [...] since surgery Supplement Usage: Type Amount MVT Flinsjose Assessment: Adequate Meal Frequency: Yes Adequate Meal [...] added sugar in her meal choices and proteinshakes. She has stopped taking her Prilosec after [...] Other:Protein needs; labs prior to next visit * Master Ugarte MD - 11/01/2015 1309 EST [...] this encounter. 3. Seen and discussed with Lay Health Advocate at this visit. Master Ugarte MD 11/01/2015 13:09 documented in this encounter Plan of Treatment Upcoming Encounters Date Type Department Care Team (Late st Contact Info) Description 04/27/2024 14:[address] [facility] Neurology - [address] [place] [address] [place], [place] [address] Kj Gloria MD PhD 1 [facility], Level [address] [place] [phone] 04/30/2024 9:30 EDT Office Visit [facility] Interventional Pain [address] [place] [address] Catalino Garrett MD 62 [facility] [address] [place] [phone] 09/18/2024 11:[address] [facility] Bariatric Surgery - [place] [address] [place] [address] Allen Thompson PA-C 111 [facility], [facility], Level [address] [place] [phone] documented as of this encounter Visit Diagnoses Diagnosis S/P laparoscopic sleeve gastrectomy- Primary Bariatric surgery status documented in this encounter Care Teams Escort Service Attendant Relationship Specialty Start Date End Date Juma Herrera MD [address] [facility] [place] [phone] PCP - General 09/25/12 12/07/18 documented as of this encounter
--- OUTSIDE RECORDS SUMMARY | 2024-04-22 23:50 | XMS_ITS | Encounter Summary ---
Author Organization [facility] Address [address] [place] [address] Care Team Providers Care Associate Programmer Name Role Phone Juma Herrera MD Unavailable Juma Herrera MD Primary Care Provider [phone] Reason for Visit * Reason Onset Date Comments Appointment Related 01/08/2019 Encounter Details Date Type Department Care Team (Late st Contact Info) Description 01/08/2019 Telephone [facility] Interventional Pain [address] [place] [address] [place] [address] [place] [address] Appointment Related Social History Tobacco Use Types [...] encounter Miscellaneous Notes * Telephone Encounter - Bharati Doyle - 01/12/2019 1016 EDT 01/28/19 A 7:45 * Telephone Encounter - Aiyana Wong - 01/08/2019 1514 EDT Please schedule patient for repeat ??C6-[address] Butler. No authorization is needed. * Telephone Encounter - Shantelle Gautam RN - 01/08/2019 [...] prior auth for repeat C6-7 cervical epidural * Telephone Encounter - Aiyana Wong - 01/08/2019 1358 EDT Pt had 80% relief for 3 months and would like another CTLESI. documented in this encounter Plan of Treatment Upcoming Encounters Date Type Department Care Team (Late st Contact Info) Description 04/27/2024 14:30 EDT Telemedicine [facility] Neurology - [address] [place] [address] [place], [place] [phone] Kj Gloria MD PhD 1 [facility], Level 2 [place] [address] 04/30/2024 9:30 EDT Office Visit [facility] Interventional Pain [address] [place], [place] [phone] Catalino Garrett MD [address] [facility] [address] [place] [address] 09/18/2024 11:00 EST Office Visit [facility] Bariatric Surgery - [place] [address] [place], [place] [address] Allen Thompson PA-C 111 [facility], Level [address] [place] [phone] documented as of this encounter Visit Diagnoses Not on filedocumented in this encounter Care Teams Associate Programmer Relationship Specialty Start Date End Date Juma Herrera MD [address] [place] [address] PCP - General 01/07/19 03/13/21 Juma Herrera MD [address] [place] [address] 12/08/18 documented as of this encounter
--- OUTSIDE RECORDS SUMMARY | 2024-04-22 23:50 | XMS_ITS | Encounter Summary ---
Author Organization [facility] Address [address] [place] [address] Care Team Providers Care Undercollar Maker Name Role Phone Juma Herrera MD Primary Care Provider [phone] Reason for Visit * Reason Onset Date Comments Other 10/15/2016 asked for pictur es of her before and after surgery. She still has not received them yet. Encounter Details Date Type Department Care Team (Late st Contact Info) Description 10/15/2016 Telephone [facility] Bariatric Surgery - [place] [address] [place], [place] [address] Allen Thompson, ELISABETH 111 [facility], [facility], Level [address] [place] [address] Other (asked for pictures of her before and after surgery. She still has not received them yet.) Social History Tobacco Use Types Packs/Day Years [...] encounter Miscellaneous Notes * Telephone Encounter - Leidy Stiles - 10/15/2016 1038 EST Corrected patient's email: [email or web address] documented in this encounter Plan of Treatment Upcoming Encounters Date Type Department Care Team (Late st Contact Info) Description 04/27/2024 14:30 EDT Telemedicine [facility] Neurology - [address] [address] Kj Gloria MD PhD 1 [facility] 2 [place] [phone] 04/30/2024 9:30 EDT Office Visit [facility] Interventional Pain [address] [place] [address] Catalino Garrett MD 62 [facility] [address] [place] [address] 09/18/2024 11:00 EST Office Visit [facility] Bariatric Surgery - [place] [address] [place], [place] [phone] Allen Thompson PA-C 111 [facility], Level [address] [place] [phone] documented as of this encounter Visit Diagnoses Not on filedocumented in this encounter Care Teams Undercollar Maker Relationship Specialty Start Date End Date Juma Herrera MD [address] [place] [phone] PCP - General 09/25/12 12/07/18 documented as of this encounter
--- OUTSIDE RECORDS SUMMARY | 2024-04-22 23:50 | XMS_ITS | Encounter Summary ---
Author Organization [facility] Address [address] [place] [address] Care Team Providers Care Mines Safety Engineer Name Role Phone Juma Herrera MD Primary Care Provider [phone] Reason for Visit * Reason Onset Date Comments Results 09/21/2016 Encounter Details Date Type Department Care Team (Late st Contact Info) Description 09/21/2016 Orders Only [facility] Bariatric Surgery - [place] [address] [place] [address] Mary Rosales RN Morbid obesity, unspecified obesity type (CMS-HCC) ([facility]); S/P laparoscopic sleeve gastrectomy Social History Tobacco Use Types Packs/Day Years [...] No 09/05/2015 Cognitive Status Response Date of Assess ent Because of a physical, menta l, or emotional condition, do you have serious difficulty concentrating, remembering, or making decisions? (5 years old or older) No 09/05/2015 documented as of this encounter Plan of Treatment Upcoming Encounters Date Type Department Care Team (Late st Contact Info) Description 04/27/2024 14:30 EDT Telemedicine [facility] Neurology - [address] [phone] Kj Gloria MD PhD 1 [facility] Level 2 [place] [phone] 04/30/2024 9:30 EDT Office Visit [facility] Interventional Pain [address] [place], [place] [phone] Catalino Garrett MD 62 [facility] [address] [place] [address] 09/18/2024 11:00 EST Office Visit [facility] Bariatric Surgery - [place] [address] [place], [place] [phone] Allen Thompson, PA-C 111 [facility], [address] [place] [phone] documented as of this encounter Procedures Procedure Name Priority Date/Time Associated Diagnosis Comments THIAMIN (VITAMIN B1), WB Routine 09/17/2016 Morbid obesity, unspecified obesity type ([facility]) ([facility]) S/P laparoscopic sleeve gastrectomy VITAMIN D (25,[place]) Routine 09/17/2016 Morbid obesity, unspecified obesity type ([facility]) ([facility]) S/P laparoscopic sleeve gastrectomy PTH INTACT Routine 09/17/2016 Morbid obesity, unspecified obesity type ([facility]) ([facility]) S/P laparoscopic sleeve gastrectomy COMPLETE BLOOD COUNT Routine 09/17/2016 Morbid obesity, unspecified obesity type (CMS-HCC) (HCC-CMS) S/P laparoscopic sleeve gastrectomy IRON Routine 09/17/2016 Morbid obesity, unspecified obesity type (CMS-HCC) (HCC-CMS) S/P laparoscopic sleeve gastrectomy FERRITIN Routine 09/17/2016 Morbid obesity, unspecified obesity type (CMS-HCC) (HCC-CMS) S/P laparoscopic sleeve gastrectomy VITAMIN B12 Routine 09/17/2016 Morbid obesity, unspecified obesity type (CMS-HCC) (HCC-CMS) S/P laparoscopic sleeve gastrectomy CREATININE Routine 09/17/2016 Morbid obesity, unspecified obesity type (CMS-HCC) (HCC-CMS) S/P laparoscopic sleeve gastrectomy CALCIUM Routine 09/17/2016 Morbid obesity, unspecified obesity type (CMS-HCC) (HCC-CMS) S/P laparoscopic sleeve gastrectomy documented in this encounter Results * CALCIUM (09/17/2016) Calcium, External 8.6 [facility] Calculated Calcium, External [facility] Blood specimen (specimen) 09/17/2016 Allen PascalIsowalksy PA-C CHEMISTRY & BLOOD GAS ORDERABLES Performing Organization Address [facility] Co de Phone Number [facility] * CREATININE (09/17/2016) Creatinine, External 0.74 [facility] GFR, Calculated, External [facility] Blood specimen (specimen) 09/17/2016 Allen Marroquiner-Cressy PA-C CHEMISTRY & BLOOD GAS ORDERABLES Performing Organization Address [facility]/ZIP Co de Phone Number [facility] * FERRITIN (09/17/2016) Ferritin, External 10 [facility] Blood specimen (specimen) 09/17/2016 Allen Bennett-Dakotasy PA-C CHEMISTRY & BLOOD GAS ORDERABLES [facility] * HEMAGRAM (09/17/2016) HCT, External 39.1 [facility] MCH, External 28.8 [facility] MCV, External 88.1 [facility] MCHC, External 32.7 [facility] Hemoglobin, External 12.8 [facility] WBC, External 6.07 [facility] RBC, External 4.44 [facility] PLT, External 342 [facility] RDW-CV, External 14.3 [facility] Blood specimen (specimen) 09/17/2016 Allen Bennett-Dakotasy PA-C HEMATOLOGY & PF4 ORDERABLES Performing Organization Address City/[facility]/ZIP Co de Phone Number [facility] * IRON (09/17/2016) Iron, External 100 [facility] Blood specimen (specimen) 09/17/2016 Allen Marroquiner-Cressy PA-C CHEMISTRY & BLOOD GAS ORDERABLES [facility] * PTH INTACT (09/17/2016) PTH, External 51 [facility] Blood specimen (specimen) 09/17/2016 Allen Marroquiner-Cressy PA-C CHEMISTRY & BLOOD GAS ORDERABLES [facility] * THIAMIN (VITAMIN B1), WB (09/17/2016) Thiamine, External 106 [facility] Comment, External [facility] Blood specimen (specimen) 09/17/2016 Allen Ziggy Calitter-Cressy PA-C CHEMISTRY & BLOOD GAS ORDERABLES Performing Organization Address City/[facility]/ZIP Co de Phone Number [facility] * VITAMIN B12 (09/17/2016) Vitamin B-12, External 392 [facility] Blood specimen (specimen) 09/17/2016 Allen Marroquiner-Isowalksy PA-C CHEMISTRY & BLOOD GAS ORDERABLES Performing Organization Address [facility]/ZIP Co de Phone Number [facility] * (ABNORMAL) VITAMIN D (25,OH) (09/17/2016) 25OH Vitamin D Tot, External 21.9(A) 30 - 100 [facility] Blood specimen (specimen) 09/17/2016 Allen Ziggy CaliCollege [facility] [employer] [facility])er-Isowalksy PA-C CHEMISTRY & BLOOD GAS ORDERABLES Performing Organization Address City/[facility]/ZIP Co de Phone Number [facility] documented in this encounter Visit Diagnoses Diagnosis Morbid obesity, unspecified obesity type ([facility]) S/P laparoscopic sleeve gastrectomy Bariatric surgery status documented in this encounter Care Teams Mines Safety Engineer Relationship Specialty Start Date End Date Juma Herrera MD [address] [place] [phone] PCP - General 09/25/12 12/07/18 documented as of this encounter
--- OUTSIDE RECORDS SUMMARY | 2024-04-22 23:50 | XMS_ITS | Encounter Summary ---
Author Organization [facility] Address [address] [place] [address] Care Team Providers Care Collar Stay Fuser Tender Name Role Phone Juma Herrera MD Primary Care Provider [phone] Reason for Visit * Reason Comments Obesity POST OP SLEEVE 1 YEZiggy Hernandez (09/05/15) Encounter Details Date Type Department Care Team (Late st Contact Info) Description 09/28/2016 10:30 EST Office Visit [facility] Bariatric Surgery [facility] [address] [place] [address] Allen Thompson, PALizettC 111 [facility], [facility], Level [address] [place] [address] Morbid obesity, unspecified obesity type (CMS-HCC) (HCC-CMS) (Primary Dx); S/P laparoscopic sleeve gastrectomy; Vitamin D deficiency; Other specified intestinal malabsorption Discharge Disposition: Auto Discharge Social History Tobacco [...] kg (177 lb 9.6 oz) 09/28/[address] Height 172.7 cm (5' 7.99) 09/28/2016 1051 [...] to excess calories-E66.01[ICD-10-CM] Z98.84 Bariatric surgery status-Z98.84[ICD-10-CM] E55.9 Vitamin D deficiency, unspecified-E55.9[ICD-10-CM] K90.89 Other intestinal malabsorption-K90.89[ICD-10-CM] documented in this encounter Discharge Disposition Disposition Code Departure Means Destination Auto Discharge documented in this encounter Progress Notes * Allen Thompson PA - 09/28/2016 1030 EST 09/28/2016 Tia [...] complications and Weight Loss: Good. With fatigue still- iron and ferritin both look good and [...] before next visit. Seen and discussed with Rn Circulating at this visit. MARGARITA Gomez 09/28/2016 11:41 * Apolonia Holcomb - 09/28/2016 1030 EST Nutrition Post Op Visit: Gastric Sleeve Subjective: Patient returns to clinic for post op nutritional counseling following bariatric surgery approx 1 year ago. Questionnaire Reviewed: Yes Intolerance [...] Water Zero and lightly sweetened green tea. Advised she include protein source with breakfast daily. She [...] 70gm protein intake daily Education Provided: None * Tracy Mendez - 09/28/2016 1030 EST Images from the original note were not included. documented in this encounter Plan of Treatment Upcoming Encounters Date Type Department Care Team (Late st Contact Info) Description 04/27/2024 14:30 EDT Telemedicine [facility] Neurology - [place] [address] [place], [place] [address] Kj Gloria MD PhD 1 [facility], Level 2 [place] [phone] 04/30/2024 9:30 EDT Office Visit [facility] Interventional Pain [address] [place] [address] Catalino Garrett MD [address] [place] [address] 09/18/2024 11:00 EST Office Visit [facility] Bariatric Surgery - [place] [address] [place], [place] [phone] Allen Thompson PA-C 111 [facility] 5 [place] [phone] documented as of this encounter Visit Diagnoses Diagnosis Morbid obesity, unspecified obesity type (HCC-CMS)- Primary S/P laparoscopic sleeve gastrectomy Bariatric surgery status Vitamin D deficiency Unspecified vitamin D deficiency Other specified intestinal malabsorption documented in this encounter Discontinued Medications Medication Sig Discontinue Reason Start Date End Da te oxyCODONE (ROXICODONE) 5 mg/5 mL solution Take 5-10 mL by mouth every 4 hours as needed for Pain Daily Max: 60 mg Therapy completed 09/07/2015 09/28/2016 diphenhydrAMINE (BENYLIN) 12.5 mg/5 mL syrup Take 50 mg by mouth every 4 hours. Reported on 09/28/2016 Therapy completed 09/28/2016 documented as of this encounter Historical Medications * This list may reflect changes made after this encounter. Medication Sig Dispensed Refills Start Date End Date methylphenidate (RITALIN;METHYLIN) 5 mg tablet Take 2 Tablets by mouth 2 times daily. added in this encounter Care Teams Collar Stay Fuser Tender Relationship Specialty Start Date End Date Juma Herrera MD [address] [facility] [place] [phone] PCP - General 09/25/12 12/07/18 documented as of this encounter
--- OUTSIDE RECORDS SUMMARY | 2024-04-22 23:50 | XMS_ITS | Encounter Summary ---
Author Organization [facility] Address [address] [place] [address] Care Team Providers Care Website Admin Name Role Phone Juma Herrera MD Primary Care Provider [phone] Reason for Visit * Reason Onset Date Comments Results 11/28/2015 Encounter Details Date Type Department Care Team (Late st Contact Info) Description 11/28/2015 Orders Only [facility] Bariatric Surgery - [place] [address] [place] [address] Mary Rosales RN Morbid obesity due to excess calories (CMS-HCC) (HCC-CMS); S/P laparoscopic sleeve gastrectomy; Post-resection malabsorption; Vitamin D deficiency Social History Tobacco Use [...] Telemedicine [facility] Neurology - [address] [phone] Kj Gloria MD PhD 1 [facility] Level [address] [place] [phone] 04/30/2024 9:30 EDT Office Visit [facility] Interventional Pain 62 [facility] [place] [address] Catalino Garrett MD 62 [facility] [address] [place] [address] 09/18/2024 11:00 EST Office Visit [facility] Bariatric Surgery - [place] [address] [place], [place] [address] Allen Thompson, PALizettC 111 [facility], [facility] [address] [place] [phone] documented as of this encounter Procedures Procedure Name Priority Date/Time Associated Diagnosis Comments THIAMIN (VITAMIN B1), WB Routine 11/23/2015 Morbid obesity due to excess calories ([facility]) ([facility]) S/P laparoscopic sleeve gastrectomy Post-resection malabsorption VITAMIN D (25,OH) Routine 11/23/2015 Morbid obesity due to excess calories ([facility]) ([facility]) S/P laparoscopic sleeve gastrectomy Post-resection malabsorption Vitamin D deficiency PTH INTACT Routine 11/23/2015 Morbid obesity due to excess calories (CMS-HCC) (HCC-CMS) S/P laparoscopic sleeve gastrectomy Post-resection malabsorption COMPLETE BLOOD COUNT Routine 11/23/2015 Morbid obesity due to excess calories (CMS-HCC) (HCC-CMS) S/P laparoscopic sleeve gastrectomy Post-resection malabsorption IRON Routine 11/23/2015 Morbid obesity due to excess calories (CMS-HCC) (HCC-CMS) S/P laparoscopic sleeve gastrectomy Post-resection malabsorption FERRITIN Routine 11/23/2015 Morbid obesity due to excess calories (CMS-HCC) (HCC-CMS) S/P laparoscopic sleeve gastrectomy Post-resection malabsorption VITAMIN B12 Routine 11/23/2015 Morbid obesity due to excess calories (CMS-HCC) (HCC-CMS) S/P laparoscopic sleeve gastrectomy Post-resection malabsorption CREATININE Routine 11/23/2015 Morbid obesity due to excess calories (CMS-HCC) (HCC-CMS) S/P laparoscopic sleeve gastrectomy Post-resection malabsorption CALCIUM Routine 11/23/2015 Morbid obesity due to excess calories (CMS-HCC) (HCC-CMS) S/P laparoscopic sleeve gastrectomy Post-resection malabsorption documented in this encounter Results * CALCIUM (11/23/2015) Calcium, External 9.3 [facility] Calculated Calcium, External [facility] Blood specimen (specimen) 11/23/2015 Allen Thompson PA-C CHEMISTRY & BLOOD GAS ORDERABLES [facility] * CREATININE (11/23/2015) Creatinine, External 0.6 [facility] GFR, Calculated, External [facility] Blood specimen (specimen) 11/23/2015 Allen Trinh Calitter-Cressy PA-C CHEMISTRY & BLOOD GAS ORDERABLES [facility] * FERRITIN (11/23/2015) Ferritin, External 27 [facility] Blood specimen (specimen) 11/23/2015 Allen Trinh Chutter-Cressy PA-C CHEMISTRY & BLOOD GAS ORDERABLES [facility] * HEMAGRAM (11/23/2015) HCT, External 43.1 [facility] MCH, External 30.3 [facility] MCV, External 88.3 [facility] MCHC, External 34.3 [facility] Hemoglobin, External 14.8 [facility] WBC, External 7.63 [facility] RBC, External 4.88 [facility] PLT, External 306 [facility] RDW-CV, External 15.1 [facility] Blood specimen (specimen) 11/23/2015 Allen Ziggy Lopezer-Cressy PA-C HEMATOLOGY & PF4 ORDERABLES Performing Organization Address City/[facility]/ZIP Co de Phone Number [facility] * IRON (11/23/2015) Iron, External 82 [facility] Blood specimen (specimen) 11/23/2015 Allen Ziggy Chutter-Cressy PA-C CHEMISTRY & BLOOD GAS ORDERABLES [facility] * PTH INTACT (11/23/2015) PTH, External 23 [facility] Blood specimen (specimen) 11/23/2015 Allen Trinh Macheener-[employer]y PA-C CHEMISTRY & BLOOD GAS ORDERABLES [facility] * THIAMIN (VITAMIN B1), WB (11/23/2015) Thiamine, External 106 [facility] Comment, External [facility] Blood specimen (specimen) 11/23/2015 Allen Trinh M[employer]ener-[employer] PA-C CHEMISTRY & BLOOD GAS ORDERABLES Performing Organization Address City/[facility]/ZIP Co de Phone Number [facility] * VITAMIN B12 (11/23/2015) Vitamin B-12, External 653 [facility] Blood specimen (specimen) 11/23/2015 Allen Trinh Macheener-Cressy PA-C CHEMISTRY & BLOOD GAS ORDERABLES Performing Organization Address City/[facility]/ZIP Co de Phone Number [facility] * (ABNORMAL) VITAMIN D (25,OH) (11/23/2015) 25OH Vitamin D Tot, External 25.2(A) 30 - 100 [facility] Blood specimen (specimen) 11/23/2015 Allen Trinh [employer] PA-C CHEMISTRY & BLOOD GAS ORDERABLES [facility] documented in this encounter Visit Diagnoses Diagnosis Morbid obesity due to excess calories ([facility]) S/P laparoscopic sleeve gastrectomy Bariatric surgery status Post-resection malabsorption Other and unspecified postsurgical nonabsorption Vitamin D deficiency Unspecified vitamin D deficiency documented in this encounter Care Teams Website Admin Relationship Specialty Start Date End Date Juma Herrera MD [address] [facility] [place] [phone] PCP - General 09/25/12 12/07/18 documented as of this encounter
--- OUTSIDE RECORDS SUMMARY | 2024-04-22 23:50 | XMS_ITS | Encounter Summary ---
Author Organization [facility] Address [address] [place] [address] Care Team Providers Care Collaborative Teacher Name Role Phone Juma Herrera MD Primary Care Provider [phone] Reason for Visit * Reason Comments Post-op Problem Patient arrives via car. Patient had gastric sleeve surgery on September 05. Patient noticed yesterday there was decreased drainage in MELANIE drain and today there is no drainage. There is drainage around the tube. Encounter Details Date Type Department Care Team (Late st Contact Info) Description 09/11/2015 9:17 EST - 09/11/2015 11:41 EST Emergency [facility] Emergency Department - [address] [address] Rishabh Denton PA-C [address] [place] [phone] Kj Urbina MD [address] [place] [phone] Emergency, MD MELANIE Garcia drain, broken, initial encounter (Primary Dx) Discharge Disposition: Home or Self Care Social [...] 09/05/2015 documented as of this encounter Discharge Instructions * Discharge Instructions* Kj Urbina IV, MD - 09/11/2015 11:34 EST Please follow up as scheduled with your [...] mg every evening. pregabalin (LYRICA) 50 mg capsule Take 2 [...] needed for Pain Daily Max: 60 mg 700 mL 0 09/07/2015 09/28/2016 oxyCODONE (ROXICODONE) 5 mg/5 mL solution Take [...] Home documented in this encounter Consult Notes * Raymundo Rahman MD - 09/11/2015 1330 EST [...] of draining around her surgical drain. She states that she has had increased drainage around the drain site, which has saturated 2 washclothsovernight. Otherwise, she is tolerating her diet. She does note large clots in her menstrual bleeding and mucousy stools lately. Otherwise, no nausea, vomiting, fevers, chills, shortness of breath orchest pain at home. PHYSICAL EXAM: Vital signs: Temperature 37.2, pulse 81, respirations 14, blood pressure 133/79, satting 98% on room air. General: Alert and oriented x3, no apparent distress. Respiratory: Bilateral chest rise, nonlabored respirations. Cardiovascular: Limbs are warm and well perfused. Regular rate and rhythm per pulse. Abdomen: Soft, nontender, nondistended. Katie in place from surgery. Incisions clean, dry, intactand well-healing, some skin irritation from tape sites, serous drainage around MELANIE drain present in right upper quadrant. Extremities: Moves all extremities equally. No clubbing, cyanosis or edema. LABS: None. RADIOLOGY: None. ASSESSMENT AND PLAN: This is a 40-year-old female status post laparoscopic sleeve gastrectomy for morbid obesity. Postoperative course has been normal except for some peridrain leakage. The patient was seen in the ED, drain was removed. Open [...] fevers, chills or intractable abdominal pain. The patientvoiced clear understanding to instructions and had no further questions or concerns. Ulices Long MD FACS 11 28 AM / Raymundo Rahman MD ln Confirmation: [id number] Dictation ID: [id number] cc: Ulices Long MD FACS documented in this encounter ED Notes * Kj Urbina IV, MD - 09/11/2015 0931 EST DOS: 09/11/2015 Chief Complaint Patient presents with ??? Post-op Problem Patient arrives via car. Patient had gastric sleeve surgery on September 05. Patient noticed yesterday there was decreased drainage in MELANIE drain and today there is no drainage. There is drainage aroundthe tube. HPI The patient is a 40 y.o. female who presents today with Post-op Problem HPI Comments: IManisha, cecily scribing for Rishabh Denton, PA;H* while he/she [...] gauze to wipe. Her at bedside reports that he has noted further increase in drainage from the wound site when the patient stands up. Patient reports typical drainage of 10 cc's and emptying of her MELANIE ever 12 hours. Patient has been withoutfever. The history is provided by the patient. [...] drain. Sutures placed by the Surgery resident. Patient was discharged home after being evaluated by Surgery. ASSESSMENT AND PLAN Final diagnoses: MELANIE drain, broken, initial encounter DISPOSITION: Discharged The patient's pain was managed to an adequate level weighing risk vs. benefit of further medications. Upon departure from the Emergency Department, the patient's pain was 0 on a zero to ten scale. Condition at departure from the Emergency Department: Improved PCP: Juma Herrera [facility] This documentation is recorded by Manisha Perry acting as Scribe under the direction and presence of Kj Urbina IV,*. Kj Urbina IV,*: I personally performed the services recorded by the scribe in my presence. I confirm the scribe's documentation has been reviewed by me to accurately and completely record my work, treatment, procedures, and medical decision making. 09/19/2015 23:24 No flowsheet data found. documented in this encounter Plan of Treatment Upcoming Encounters Date Type Department Care Team (Late st Contact Info) Description 04/27/2024 14:30 EDT Telemedicine [facility] Neurology - [address] [phone] Kj Gloria MD PhD [address] [place] [address] [address] [place] [phone] 04/30/2024 9:30 EDT Office Visit [facility] Interventional Pain [address] [place], [place] [phone] Catalino Garrett MD 62 [facility] [address] [place] [address] 09/18/2024 11:00 EST Office Visit [facility] Bariatric Surgery - [place] [address] [place], [place] [phone] Allen Thompson PA-C 111 [facility], [address] [place] [address] documented as of this encounter Visit Diagnoses Diagnosis MELANIE drain, broken, initial encounter- Primary documented in this encounter Care Teams Collaborative Teacher Relationship Specialty Start Date End Date Juma Herrera MD [address] [facility] [place] [phone] PCP - General 09/25/12 12/07/18 documented as of this encounter
--- OUTSIDE RECORDS SUMMARY | 2024-04-22 23:50 | XMS_ITS | Encounter Summary ---
Author Organization [facility] Address [address] [place] [address] Care Team Providers Care Content Management Consultant Name Role Phone Juma Herrera MD Primary Care Provider [phone] Reason for Visit * Reason Onset Date Comments Advice Only 09/09/2015 Encounter Details Date Type Department Care Team (Late st Contact Info) Description 09/09/2015 Telephone [facility] Bariatric Surgery - [address] [address] Lux Dumont, RD [address] [place] [phone] Advice Only Social History Tobacco Use [...] Miscellaneous Notes * Telephone Encounter - Lux Dumont RD - 09/09/2015 0805 EST BARIATRIC SURGERY POST-OP [...] Contact Info) Description 04/27/2024 14:30 EDT Telemedicine [facility] Neurology - [address] [address] Kj Gloria MD PhD 1 [facility], Level 2 [place] [phone] 04/30/2024 9:30 EDT Office Visit [facility] Interventional Pain 62 [facility] [place] [address] Catalino Garrett MD 62 [facility] [address] [place] [address] 09/18/2024 11:00 EST Office Visit [facility] Bariatric Surgery - [place] [address] [place], [place] [address] Allen Thompson PA-C 111 [facility], [address] 5 [place] [phone] documented as of this encounter Visit Diagnoses Not on filedocumented in this encounter Care Teams Content Management Consultant Relationship Specialty Start Date End Date Juma Herrera MD [address] [place] [address] PCP - General 09/25/12 12/07/18 documented as of this encounter
--- OUTSIDE RECORDS SUMMARY | 2024-04-22 23:50 | XMS_ITS | Encounter Summary ---
Author Organization [facility] Address [address] [place] [address] Care Team Providers Care Narrative Writer Name Role Phone Juma Herrera MD Primary Care Provider [phone] Reason for Referral * Laboratory Services (Routine) - Closed Specialty Diagnoses / Procedures Referred By Wili mireles Referred To Contact Diagnoses Morbid obesity due to excess calories (HCC-CMS) S/P laparoscopic sleeve gastrectomy Post-resection malabsorption Vitamin D deficiency Procedures VITAMIN D (25,OH) Mary Rosales RN Referral ID Status Reason Start Date Expiration Date Visits Re quested Visits Authorized [id number] Closed 12/09/2015 1 1 * Laboratory Services (Routine) - Closed Specialty Diagnoses / Procedures Referred By Wili mireles Referred To Contact Diagnoses Morbid obesity due to excess calories (HCC-CMS) S/P laparoscopic sleeve gastrectomy Post-resection malabsorption Procedures IRON Mary Rosales RN Referral ID Status Reason Start Date Expiration Date Visits Re quested Visits Authorized [id number] Closed 12/09/2015 1 1 * Laboratory Services (Routine) - Closed Specialty Diagnoses / Procedures Referred By Wili mireles Referred To Contact Diagnoses Morbid obesity due to excess calories (HCC-CMS) S/P laparoscopic sleeve gastrectomy Post-resection malabsorption Procedures PTH INTACT Mary Rosales RN Referral ID Status Reason Start Date Expiration Date Visits Re quested Visits Authorized [id number] Closed 12/09/2015 1 1 * Laboratory Services (Routine) - Closed Specialty Diagnoses / Procedures Referred By Contac t Referred To Contact Diagnoses Morbid obesity due to excess calories (HCC-CMS) S/P laparoscopic sleeve gastrectomy Post-resection malabsorption Procedures VITAMIN B12 Mary Rosales RN Referral ID Status Reason Start Date Expiration Date Visits Re quested Visits Authorized [id number] Closed 12/09/2015 1 1 * Laboratory Services (Routine) - Closed Specialty Diagnoses / Procedures Referred By Contac t Referred To Contact Diagnoses Morbid obesity due to excess calories (HCC-CMS) S/P laparoscopic sleeve gastrectomy Post-resection malabsorption Procedures CALCIUM Mary Rosales RN Referral ID Status Reason Start Date Expiration Date Visits Re quested Visits Authorized [id number] Closed 12/09/2015 1 1 * Laboratory Services (Routine) - Closed Specialty Diagnoses / Procedures Referred By Contac t Referred To Contact Diagnoses Morbid obesity due to excess calories (HCC-CMS) S/P laparoscopic sleeve gastrectomy Post-resection malabsorption Procedures FERRITIN Mary Rosales RN Referral ID Status Reason Start Date Expiration Date Visits Re quested Visits Authorized [id number] Closed 12/09/2015 1 1 * Laboratory Services (Routine) - Closed Specialty Diagnoses / Procedures Referred By Contac t Referred To Contact Diagnoses Morbid obesity due to excess calories (HCC-CMS) S/P laparoscopic sleeve gastrectomy Post-resection malabsorption Procedures HEMAGRAM Mary Rosales RN Referral ID Status Reason Start Date Expiration Date Visits Re quested Visits Authorized [id number] Closed 12/09/2015 1 1 * Laboratory Services (Routine) - Closed Specialty Diagnoses / Procedures Referred By Contac t Referred To Contact Diagnoses Morbid obesity due to excess calories (HCC-CMS) S/P laparoscopic sleeve gastrectomy Post-resection malabsorption Procedures CREATININE Mary Rosales RN Referral ID Status Reason Start Date Expiration Date Visits Re quested Visits Authorized [id number] Closed 12/09/2015 1 1 * Laboratory Services (Routine) - Closed Specialty Diagnoses / Procedures Referred By Wili mireles Referred To Contact Diagnoses Morbid obesity due to excess calories (HCC-CMS) S/P laparoscopic sleeve gastrectomy Post-resection malabsorption Procedures THIAMIN (VITAMIN B1), WB Mary Rosales RN Referral ID Status Reason Start Date Expiration Date Visits Re quested Visits Authorized [id number] Closed 12/09/2015 1 1 Encounter Details Date Type Department Care Team (Late st Contact Info) Description 11/08/2015 Orders Only [facility] Bariatric Surgery [place] [address] [place] [address] Mary Rosales RN Morbid obesity due to excess calories (CMS-HCC) ([facility]) (Primary Dx); S/P laparoscopic sleeve gastrectomy; Post-resection malabsorption; Vitamin [...] of this encounter Progress Notes * Mary Rosales RN - 11/08/2015 1333 EST [...] [facility] Neurology - [address] [place], [place] [address] Kj Gloria MD PhD 1 [facility] Level 2 [place] [phone] 04/30/2024 9:30 EDT Office Visit [facility] Interventional Pain 62 [facility] [place], [place] [phone] Catalino Garrett MD 62 [facility] [address] [place] [address] 09/18/2024 11:00 EST Office Visit [facility] Bariatric Surgery - [employer] [address] [place], [place] [address] Allen Thompson PA-C [address] [place] [address], [address] [place] [phone] documented as of this encounter Results * (ABNORMAL) VITAMIN D (25,OH) (11/23/2015) 25OH Vitamin D Tot, External 25.2(A) 30 - 100 [facility] Blood specimen (specimen) 11/23/2015 Allen Thompson PA-C CHEMISTRY & BLOOD GAS ORDERABLES [facility] * IRON (11/23/2015) Iron, External 82 [facility] Blood specimen (specimen) 11/23/2015 Allen Leivatter-Cressy PA-C CHEMISTRY & BLOOD GAS ORDERABLES [facility] * PTH INTACT (11/23/2015) PTH, External 23 [facility] Blood specimen (specimen) 11/23/2015 Allen Leivatter-Cressy PA-C CHEMISTRY & BLOOD GAS ORDERABLES Performing Organization Address City/[facility]/ZIP Co de Phone Number [facility] * VITAMIN B12 (11/23/2015) Vitamin B-12, External 653 [facility] Blood specimen (specimen) 11/23/2015 Allen Leivatter-Cressy PA-C CHEMISTRY & BLOOD GAS ORDERABLES [facility] * CALCIUM (11/23/2015) Calcium, External 9.3 [facility] Calculated Calcium, External [facility] Blood specimen (specimen) 11/23/2015 Allen Trinh Chutter-Cressy PA-C CHEMISTRY & BLOOD GAS ORDERABLES [facility] * FERRITIN (11/23/2015) Ferritin, External 27 [facility] Blood specimen (specimen) 11/23/2015 Allen A Chutter-Cressy PA-C CHEMISTRY & BLOOD GAS ORDERABLES [facility] * HEMAGRAM (11/23/2015) HCT, External 43.1 [facility] MCH, External 30.3 [facility] MCV, External 88.3 [facility] MCHC, External 34.3 [facility] Hemoglobin, External 14.8 [facility] WBC, External 7.63 [facility] RBC, External 4.88 [facility] PLT, External 306 [facility] RDW-CV, External 15.1 [facility] Blood specimen (specimen) 11/23/2015 Allen MarroquinNPTV PA-C HEMATOLOGY & PF4 ORDERABLES Performing Organization Address [facility]/ZIP Co de Phone Number [facility] * CREATININE (11/23/2015) Creatinine, External 0.6 [facility] GFR, Calculated, External [facility] Blood specimen (specimen) 11/23/2015 Allen MarroquinNPTV PA-C CHEMISTRY & BLOOD GAS ORDERABLES Performing Organization Address City/[facility]/ZIP Co de Phone Number [facility] * THIAMIN (VITAMIN B1), WB (11/23/2015) Thiamine, External 106 [facility] Comment, External [facility] Blood specimen (specimen) 11/23/2015 Allen Trinh PodioerStackBlaze PA-C CHEMISTRY & BLOOD GAS ORDERABLES [facility] documented in this encounter Visit Diagnoses Diagnosis Morbid obesity due to excess calories ([facility])- Primary S/P laparoscopic sleeve gastrectomy Bariatric surgery status Post-resection malabsorption Other and unspecified postsurgical nonabsorption Vitamin D deficiency Unspecified vitamin D deficiency documented in this encounter Care Teams Narrative Writer Relationship Specialty Start Date End Date Juma Herrera MD [address] [place] [place] [phone] PCP - General 09/25/12 12/07/18 documented as of this encounter
--- OUTSIDE RECORDS SUMMARY | 2024-04-22 23:51 | XMS_ITS | Encounter Summary ---
Author Organization [facility] Address [address] [place] [address] Care Team Providers Care 5Th Grade Teacher Name Role Phone Juma Herrera MD Primary Care Provider [phone] Reason for Visit * Reason Onset Date Comments Appointment Related 11/13/2012 called with skin biopsy appt with Dr. Graves for 01/07 Encounter Details Date Type Department Care Team (Late st Contact Info) Description 11/13/2012 Telephone [facility] Neurology - S [address] [phone] Zachery Walters MD [address] [place] [address], Level 2 [place] [address] Appointment Related (called with skin biopsy appt with Dr. Graves for 01/07 ) Social History Tobacco Use Types Packs/Day [...] encounter Miscellaneous Notes * Telephone Encounter - Charlette Fritz - 11/17/2012 1032 EDT Patient was called with the biopsy appt documented in this encounter Plan of Treatment Upcoming Encounters Date Type Department Care Team (Late st Contact Info) Description 04/27/2024 14:30 EDT Telemedicine [facility] Neurology - [address] [place], [place] [address] jK Gloria MD PhD 1 [facility], Level 2 [place] [phone] 04/30/2024 9:30 EDT Office Visit [facility] Interventional Pain [address] [place], [place] [phone] Catalino Garrett MD [address] [facility] [address] [facility] [address] [place] [address] 09/18/2024 11:00 EST Office Visit [facility] Bariatric Surgery [facility] [address] [place], [place] [address] Allen Thompson, PA-C 111 [facility], [address] [place] [phone] documented as of this encounter Visit Diagnoses Not on filedocumented in this encounter Care Teams 5Th Grade Teacher Relationship Specialty Start Date End Date Juma Herrera MD [address] [facility] [address] PCP - General 09/25/12 12/07/18 documented as of this encounter
--- OUTSIDE RECORDS SUMMARY | 2024-04-22 23:51 | XMS_ITS | Encounter Summary ---
Author Organization [facility] Address [address] [place] [address] Care Team Providers Care Production Machine Tender Name Role Phone Juma Herrera MD Primary Care Provider [phone] Reason for Referral * Radiology Services (Routine/Next Available) - Closed Specialty Diagnoses / Procedures Referred By Wili mireles Referred To Contact Diagnoses Neck pain Procedures CERVICAL SPINE 1 VIEW Kj Child MD [address] [place] [phone] Referral ID Status Reason Start Date Expiration Date Visits Re quested Visits Authorized [id number] Closed 11/27/2012 1 1 Reason for Visit * Reason Onset Date Comments Neck Pain 11/26/2012 Encounter Details Date Type Department Care Team (Late st Contact Info) Description 11/26/2012 Orders Only [facility] Spine Program - [place] [address] [place] [address] Kj Child MD [address] [place] [phone] Neck pain (Primary Dx) Social History [...] Description 04/27/2024 14:30 EDT Telemedicine [facility] Neurology - [address] [place], [place] [address] Kj Gloria MD PhD 1 [facility], Level 2 [place] [phone] 04/30/2024 9:30 EDT Office Visit [facility] Interventional Pain [address] [place], [place] [phone] Catalino Garrett MD [address] [facility] [address] [place] [phone] 09/18/2024 11:00 EST Office Visit [facility] Bariatric Surgery - [address] [address] Allen Thompson PA-C [address] [facility], [address] [place] [phone] documented as of this encounter Procedures Procedure Name Priority Date/Time Associated Diagnosis Comments CERVICAL SPINE 1 VIEW Routine 12/09/2012 13:43 EDT Neck pain documented in this encounter Results * CERVICAL SPINE 1 VIEW (12/09/2012 13:43 EDT) Anatomical Region Laterality Modality Other 12/09/2012 13:4 3 EDT 12/10/2012 12:23 EDT Narrative 12/10/2012 12:23 EDT CERVICAL SPINE ONE VIEW December 09, 2012 Indication: Neck pain. Status post C6-C7 ACDF. Comparison: October 21, 2012 Technique: Lateral view the cervical spine was obtained. Findings: There has been prior anterior discectomy and spinal fusion at C6-C7. Metallic plate and screws appear intact. No periprosthetic lucency is identified. Incompletely incorporated interbody bone graft is present. This does not appear significantly changed from the prior study. Craniocervical and atlantoaxial alignment is anatomic. Minimal retrolisthesis of C6 on C7 and anterolisthesis of C7 on T1 appear unchanged. Vertebral body heights are preserved. There is mild disc space narrowing at C5-C6 and C7-T1. Procedure Note 12/10/2012 CERVICAL SPINE ONE VIEW December 09, 2012 Indication: Neck pain. Status post C6-C7 ACDF. Comparison: October 21, 2012 Technique: Lateral view the cervical spine was obtained. Findings: There has been prior anterior discectomy and spinal fusion at C6-C7. Metallic plate and screws appear intact. No periprosthetic lucency is identified. Incompletely incorporated interbody bone graft is present. This does not appear significantly changed from the prior study. Craniocervical and atlantoaxial alignment is anatomic. Minimal retrolisthesis of C6 on C7 and anterolisthesis of C7 on T1 appear unchanged. Vertebral body heights are preserved. There is mild disc space narrowing at C5-C6 and C7-T1. Kj Child MD IMG DIAGNOSTIC I MAGING ORDERABLES documented in this encounter Visit Diagnoses Diagnosis Neck pain- Primary Cervicalgia documented in this encounter Care Teams Production Machine Tender Relationship Specialty Start Date End Date Juma Herrera MD [address] [place] [phone] PCP - General 09/25/12 12/07/18 documented as of this encounter
--- OUTSIDE RECORDS SUMMARY | 2024-04-22 23:51 | XMS_ITS | Encounter Summary ---
Author Organization [facility] Address [address] [place] [address] Care Team Providers Care Director Of User Experience Name Role Phone Juma Herrera MD Primary Care Provider [phone] Reason for Referral * PT/OT/ST (Routine) - Closed Specialty Diagnoses / Procedures Referred By [facility] Referred To Contact Diagnoses Right knee [place] [address] Referral ID Status Reason Start Date Expiration Date V isits Requested Visits Authorized [id number] Closed Specialty Services Required 01/21/2015 1 1 Question Answer Reason for Request: right knee arthritis, pfps Comments pfps modalites, low impact exercise program. Reason for Visit * Reason Comments Knee Pain right * Consult (Routine) - Closed Specialty Diagnoses / Procedures Referred By [facility] Referred To Contact Orthopedic Surgery Diagnoses Cervical radiculopathy Juma Herrera MD [address] [place] [address] [facility] [address] [place] [address] Referral ID Status Reason Start Date Expiration Date Visits Re quested Visits Authorized [id number] Closed 1 1 Encounter Details Date Type Department Care Team (Late st Contact Info) Description 01/21/2015 10:00 EDT Office Visit [facility] Sports Medicine Program [place] [address] Petey Pat Right knee pain (Primary Dx) Social History Tobacco Use [...] documented in this encounter Progress Notes * Petey Pat PA-C - 01/21/2015 1038 EDT OFFICE VISIT: Right knee pain. SUBJECTIVE: The patient states she has had some ongoing problems with this right knee for the past 2 years. 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 She suffers popping, clicking, swelling in the knee. She has been followed by her primary care provider, has undergone 2 cortisone injections, the first of which was quite helpful for several months, but she had another one after her pain returned and this did not help all that much. She has been in a physical therapy program that includes aqua therapy, but she notes this has not beenhelping all that much. She has pain generally [...] Exam of the knee reveals somewhat difficult toascertain any significant effusion due to her obesity. Her range of motion is short of full extension by about 3 degrees with some pain on bounce test and she flexes to about 110 degrees with pain more anteriorly. The knee is stable to valgus varus stressors and to anterior drawer and Nathanael. Mostof her pain is anterior in nature, mostly about the insertion of the patellar tendon to the inferior pole of the patella. There is positive crepitus to compression testing, some slight catching. No ne urovascular deficits are appreciated. X-rays reviewed show some [...] [facility] Neurology - [address] [id number] Kj Gloria MD PhD 1 [facility], Level 2 [place] [phone] 04/30/2024 9:30 EDT Office Visit [facility] Interventional Pain [address] [place], [place] [phone] Catalino Garrett MD 62 [facility] [address] [place] [address] 09/18/2024 11:00 EST Office Visit [facility] Bariatric Surgery - [place] [address] [place] [address] Allen Thompson, PALizettC [address] [place] [address], [address] [place] [phone] Scheduled Referrals Name Type Priority Associated Diagnoses Orde r Schedule AMB CONS/FOLLOW UP PHYSICAL THERAPY Outpatient Referral Routine Right knee pain Ordered: 01/21/2015 documented as of this encounter Visit Diagnoses Diagnosis Right knee pain- Primary Pain in joint, lower leg documented in this encounter Care Teams Director Of User Experience Relationship Specialty Start Date End Date Juma Herrera MD [address] [place] [phone] PCP - General 09/25/12 12/07/18 documented as of this encounter
--- OUTSIDE RECORDS SUMMARY | 2024-04-22 23:51 | XMS_ITS | Encounter Summary ---
Author Organization [facility] Address [address] [place] [address] Care Team Providers Care Club Director Name Role Phone Juma Herrera MD Primary Care Provider [phone] Reason for Referral * Radiology Services (Routine) - Closed Specialty Diagnoses / Procedures Referred By Contac t Referred To Contact Diagnoses GERD (gastroesophageal reflux disease) Procedures FL ESOPHAGRAM (BARIUM SWALLOW) Master Ugarte MD [address] [place] [phone] Referral ID Status Reason Start Date Expiration Date Visits Re quested Visits Authorized [id number] Closed 12/03/2014 1 1 * Consult, Test and Treat (Routine) - Closed Specialty Diagnoses / Procedures Referred By Contmarco a mireles Referred To Contact Diagnoses GERD (gastroesophageal reflux disease) Procedures UPPER ENDOSCOPY [place] ESOPHAGOGASTRODUODENOSCOPY TRANSORAL DIAGNOSTIC Master Ugarte MD [address] [place] [phone] Shanel Perez Room 8 Referral ID Status Reason Start Date Expiration Date Visits Re quested Visits Authorized [id number] Closed 01/18/2015 1 1 Reason for Visit * Reason Comments Obesity OBE Encounter Details Date Type Department Care Team (Late st Contact Info) Description 12/03/2014 11:00 EDT Office Visit [facility] Bariatric Surgery [address] [address] Master Ugarte MD [address] [place] [phone] GERD (gastroesophageal reflux disease) (Primary Dx) Social History Tobacco Use Types [...] EDT documented in this encounter Patient Instructions * Patient Instructions* Shweta Garcia - 12/03/2014 12:09 EDT Dear Tia Spain: [...] into the stomach. You will be given approximately 8 ounces of barium to drink prior to [...] The procedure will be performed at the [facility] ([facility]) located at [facility]. ??? Parking is available in the new parking garage. Please enter the garage using the [address] entrance. ??? From the garage, take the elevators to the 3rd floor to registration for check-in. They will direct you to the [facility]. We look forward to seeing you soon. If you have any questions, concerns or need to reschedule your procedure, please call us at [phone]. What is an Upper GI Endoscopy? Also known as: Esophagogastroduodenoscopy; EGD; Upper Endoscopy; Gastroscopy An Upper GI endoscopy is an examination of the upper gastrointestinal (GI) tract using a specialized video camera called an endoscope. This instrument is [...] procedure time. When you arrive at the [facility] ([facility]), please: ??? Bring your medication list and tell the nurse about any drug allergies, medications you take regularly and any health problems (such as heart, breathing, sugar, or bleeding problems.) ??? Change into a hospital gown. ??? Remove dentures. An intravenous (IV) line will be inserted into a vein in your arm. The IV will allow you to receivemedications and fluids for the procedure. After your [...] the stomach and duodenum (the first part ofthe small intestine). The endoscope will not affect your breathing. Air will be introduced through the endoscope to enhance viewing. This may make you burp. The exam typically lasts about 5 minutes, depending on examination findings. After the test is completed, food and liquids will be restricted until your gag reflex returns. Theentire process, from the time you arrive to when you leave, is estimated at two hours. ??? You will not be able to drive yourself home secondary to the medications given for the exam. Bring someone to drive you home. A winch driver is not acceptable. Risks There is a small chance of perforation (hole) of the stomach, duodenum, or esophagus or bleeding atthe biopsy site. A patient could have an adverse reaction to the medication. The overall risk is less than 1 out of 2,500 people. After the procedure If any of these symptoms occur after the test, please contact our office at [phone]. ??? Difficulty swallowing ??? Fever or Pain [...] or any other stomach coating products 24 hours before your procedure. ??? DO NOT eat or drink anything after midnight the night before your exam if your exam is scheduled for the morning. DAY OF YOUR PROCEDURE ??? DON???T FORGET, YOU???LL NEED TO BRING SOMEONE WHO CAN TAKE YOU HOME. A SUPERVISOR CASE LOADING IS NOT ACCEPTABLE. THE PROCEDURE WILL NOT [...] located on the 3rd floor of the [facility]. o They will direct you to the Endoscopy suite located on the 4th floor of the [facility] in the [facility] ([facility]). ??? You will be receiving intravenous medication during the procedure for your comfort. Be sure to mention any allergies to medications to our staff. ??? If tissue samples (biopsies or polyps) are taken, it will take up to 2-3 weeks for results to be mailed to you. ??? Estimated time of stay after registration: approximately 2 hours. If you have any questions, concerns, or need to reschedule your procedure, please call [phone]. CLEAR LIQUID DIET What is it? You are allowed to consume only foods you can see through (Examples are listed below). This means no solid foods, nuts, fruits, seeds, dairy products, or [...] drinking. The ???nothing by mouth?? policy is in place to ensure the procedure be completed as safely as possible. ??? No alcoholic beverages EXAMPLES OF WHAT YOU CAN EAT & DRINK Beverages (NO RED COLORED DRINKS, NO COFFEE, NO ORANGE OR GRAPEFRUIT JUICE) ??? Apple juice ??? White grape juice ??? Kendrick-Aid ??? Sports Drinks - Gatorade, Powerade, etc. ??? Water ??? Tea (NO CREAM, MILK, or non-Dairy creamer) ??? Soda Soups - Clear broth or bouillon Popsicles (No RED colored popsicles) Hard Candies (No RED colored candies) - No chocolate or caramels Plain Jello (No RED colored Jello) - No added fruit, etc. If you have any questions, concerns, or need to reschedule your procedure, please call [phone]. Medication avoidance list This may not be a complete product listing. Other products may also contain these drugs so you should review the contents of any medications that you take to see if they contain any of the drugs listed above. MAO - INHIBITORS: (MONOAMINE OXIDASE INHIBITORS) ASPIRIN OR ASPIRIN LIKE COMPOUNDS (Marplan)-Isocarboxazid Prescription (Nardil)-Phenelzine Darvon Compound-65 Clorgyline Disalcid Capsules/Tablets Moclobemide Easprin Tablets Senegiline Emprin with Codeine Tablets Tranylcypromine Equagesic Tablets ASPIRIN OR ASPIRIN-LIKE COMPOUNDS Fiorinal Capsules/Tablets, Fiorinal with Codeine Caplets/Tablets Nonprescription: Lortab ASA Tablets Jennifer-[place] Antacid Pain Reliever Magsal Tablets [place] Plus cold Preparations Mingo-Gesic Tablets Anacin Maximum Strength Tablets, Norgesic & [...] Ibuprofen Caplets/Tablets Mobigesic Analgesic Tablets Sine-Aid IB Norphlet Tablets Motrin IB Caplets/Tablets P-A-C Analgesic Tablets NAPROXEN SODIUM Pepto-Bismol Liquid/Tablets Naprosyn Suspension Tablets Sine-Off Tablets Aspirin Formula Anaprox/Anaprox DS Tablets ASPIRIN OR ASPIRIN-LIKE COMPOUNDS OTHER NON-STEROIDAL ANTI-INFLAMMATORIES Nonprescription Celecoxib (Celebrex) [facility] Adult Chewable Aspirin Diclofenac (Voltaren) Therapy Ish Caplets Etodolac (Lodine) Trigesic Indomethacin (Indocin) Ursinus Inlay-Tabs Ketoprofen (Orudis) Vanquish Analgesic Caplets Ketorolac (Toradol) Meloxicam (Mobic) Nabumetome (Relafen) Piroxicam (Feldene) Rofecoxib (Vioxx) Sulindac Valdecoxib (Bextra) Getting to the [facility] [address] [place] [address] From the [place] and [facility] From the [place] area, take [address] to [facility] in [place]. Turn right onto [facility] (which becomes [facility]) and continue for approximately one mile. The [facility]'s [place] is on your right. Once on the campus, stay on [address] and follow signs to the parking garage and main entrance. From [place] and [place] Take [address]. From the [place] Take [address] to [address]. From the [place] Take [place]. [address]. Take Exit [address]. (Alternate: Cross [place]. Take [address] to [address] to [address].) From [address] through three traffic lights. Bear right onto [address] (marked by [facility] sign). Follow signs to parking garage and main entrance. documented in this encounter Progress Notes * Master Ugarte MD - 12/03/2014 1130 EDT [...] maximum weight loss has been 50 pounds, and their highest weight has been 334. The patient's [...] Carotid, femoral and pedal pulses 2+ bilaterally. No arterial bruits. No peripheral edema. Abdomen: soft, non-tender; bowel sounds normal; no masses, no organomegaly Pannus: moderate Skin: Skin color, texture, turgor normal. No rashes or lesions. Extremities: normal strength, tone, and muscle mass Assessment: I spent a total of 45 minutes in face to face time with this patient and 25 minutes of that time was spent in counseling, discussing this patient's medical profile as it relates to the benefits and risks of gastric bypass/lapband surgery and reviewed an on-line HELEN tutorial the patient watched covering the way weight loss surgery is done, how it causes weight loss, potential risks and complications, impact on eating and critical nature of exercise [...] lose weight or gain weight and change inbody image. With regard to the band, the risks and benefits were explained. The risks associated with the band include, but are not limited to: gastric/esophageal perforation, access port leakage, infection or twisting that may require an additional operation, failure to lose weight or gaining weight, nausea, v omiting, outlet obstruction, pouch and esophageal dilatation, gastroesophageal reflux disease symptoms, band migration/slippage or erosion. For the gastric bypass the risks include but not limited to the following early complications: anastomotic leak/peritonitis, acute distal gastric dilatation, So limb obstruction, severe & minorwound infection/seroma, and nausea/vomiting. Late complications of gastric [...] to Shedule a follow-up appt with our ocean clam boat captain and our physician's melter assistant, MARGARITA Stafford. We will obtain the results of the following: UGI and EGD. Tia Spain is an appropriate candidate for Gastric Bypass or Gastric Sleeve surgery pending test results.. For the next visit she was advised to come with her family. Seen and discussed with Home Economist Consumer Service at this visit. Master Ugarte MD 12/03/2014 11:30 * Lux Dumont - 12/03/2014 1122 EDT Bariatric Clinic - [...] Spinach,Brussel sprouts,fish and liver(Can eat tuna with london) Current Exercise: no planned exercise Reasons for [...] prior to next visit: Start exercise and aimfor 150 min a week. Patient appears to [...] 16 lbs by day of surgery Lux Dumont RD 12/03/2014 11:22 documented in this encounter Plan of Treatment Upcoming Encounters Date Type Department Care Team (Late st Contact Info) Description 04/27/2024 14:30 EDT Telemedicine [facility] Neurology - [address] [place] [address] [place] [address] Kj Gloria MD PhD 1 [facility] Level [address] [place] [phone] 04/30/2024 9:30 EDT Office Visit [facility] Interventional Pain [address] [place], [place] [phone] Catalino Garrett MD 62 [facility] [address] [place] [phone] 09/18/2024 11:00 EST Office Visit [facility] Bariatric Surgery - [place] [address] [place] [address] Allen Thompson PA-C 111 [facility], [address] [place] [phone] Scheduled Orders Name Type Priority Associated Diagnoses Orde r Schedule UPPER ENDOSCOPY GI Routine GERD (gastroesophageal reflux disease) Ordered: 12/03/2014 documented as of this encounter Procedures Procedure Name Priority Date/Time Associated Diagnosis Comments FL ESOPHAGRAM (BARIUM SWALLOW) Routine 01/18/2015 9:48 EDT GERD (gastroesophageal reflux disease) documented in this encounter Results * FL ESOPHAGRAM (BARIUM SWALLOW) (01/18/2015 9:48 EDT) Anatomical Region Laterality Modality Other 01/18/2015 9:48 EDT 01/18/2015 10:06 EDT Narrative 01/18/2015 10:06 EDT FL ESOPHAGRAM ??01/18/2015 9:48 AM Clinical History/Comments: 530.81-Esophageal dghgia-JDZ-9-CM; gerd. Findings: ?? Esophagram Technique: Single and double-contrast views of the thoracic esophagus were obtained. Rapid sequence imaging of the pharynx and cervical esophagus were also obtained. Findings: The study shows a normally distensible thoracic esophagus with a normal-appearing mucosa. Images through the pharynx and cervical esophagus are within normal limits. spinal fusion hardware is noted There is no evidence of gastroesophageal reflux. There is no evidence of hiatal hernia. Impression: Normal study. Procedure Note Kj Pelaez MD - 01/18/2015 FL ESOPHAGRAM 01/18/2015 9:48 AM Clinical History/Comments: 530.81-Esophageal pzfbco-TVE-9-CM; gerd. Findings: Esophagram Technique: Single and double-contrast views of the thoracic esophagus were obtained. Rapid sequence imaging of the pharynx and cervical esophagus were also obtained. Findings: The study shows a normally distensible thoracic esophagus with a normal-appearing mucosa. Images through the pharynx and cervical esophagus are within normal limits. spinal fusion hardware is noted There is no evidence of gastroesophageal reflux. There is no evidence of hiatal hernia. Impression: Normal study. Master Ugarte MD IMG FLUOROSC OPY ORDERABLES documented in this encounter Visit Diagnoses Diagnosis GERD (gastroesophageal reflux disease)- Primary Esophageal reflux documented in this encounter Care Teams Club Director Relationship Specialty Start Date End Date Juma Herrera MD [address] [facility] [place] [phone] PCP - General 09/25/12 12/07/18 documented as of this encounter
--- OUTSIDE RECORDS SUMMARY | 2024-04-22 23:51 | XMS_ITS | Encounter Summary ---
Author Organization [facility] Address [address] [place] [address] Care Team Providers Care Search Planner Name Role Phone Juma Herrera MD Primary Care Provider [phone] Reason for Visit * Reason Onset Date Comments Neck Pain 09/07/2013 Encounter Details Date Type Department Care Team (Late st Contact Info) Description 09/07/2013 Telephone [facility] Spine Program - [address] [place] [address] Kj Child MD [address] [facility] [place] [phone] Neck Pain Social History Tobacco Use Types Packs/Day Years [...] encounter Miscellaneous Notes * Telephone Encounter - Becki Rea RN - 09/08/2013 1432 EST Pt calling stating that 2 weeks ago she developed neck and arm pain just like she had prior to surgery. She c/o thumb, index, and middle finger being numb and her arm being weak. She does not recall doing anything that would cause this pain. Appointment made to see one of the P.A's. * Telephone Encounter - Carlykrisbryan Rosalino Olvera - 09/07/2013 1613 EST Tia phoned to report she has been having progressively worsening neck and right arm pain with numbness in her right thumb, index, and middle fingers. Rosalino Carolina documented in this encounter Plan of Treatment Upcoming Encounters Date Type Department Care Team (Late st Contact Info) Description 04/27/2024 14:30 EDT Telemedicine [facility]rology - [facility] [address] [place], [place] [address] Kj Gloria MD PhD 1 [facility] [address] [place] [phone] 04/30/2024 9:30 EDT Office Visit [facility] Interventional Pain 62 [facility] [place] [address] Catalino Garrett MD 62 [facility] [address] [place] [address] 09/18/2024 11:00 EST Office Visit [facility] Bariatric Surgery [facility] [address] [place], [place] [address] Allen Thompson, PA-C 111 [facility], [address] [place] [phone] documented as of this encounter Visit Diagnoses Not on filedocumented in this encounter Care Teams Search Planner Relationship Specialty Start Date End Date Juma Herrera MD [address] [facility] [place] [phone] PCP - General 09/25/12 12/07/18 documented as of this encounter
--- OUTSIDE RECORDS SUMMARY | 2024-04-22 23:51 | XMS_ITS | Encounter Summary ---
Author Organization [facility] Address [address] [place] [id number] Care Team Providers Care Army Ranger Name Role Phone Juma Herrera MD Primary Care Provider [phone] Reason for Referral * Cardiology (STAT) - Specialty Report Received Specialty Diagnoses / Procedures [facility] Referred To Contact Diagnoses Preop examination Morbid obesity with BMI of 40.0-44.9, adult ([facility]) Depression GERD without esophagitis Procedures EKG 12-LEAD Allen Thompson PA-C [address] [place] [phone] Referral ID Status Reason Start Date Expiration Date V isits Requested Visits Authorized [id number] Specialty Report Received 08/19/2015 1 1 Reason for Visit * Reason Comments Obesity H Encounter Details Date Type Department Care Team (Late st Contact Info) Description 08/19/2015 10:30 EST Office Visit [facility] Bariatric Surgery [facility] [address] [place] [address] Allen Thompson PA-C [address] [place] [phone] Preop examination (Primary Dx); Morbid obesity with BMI of 40.0-44.9, adult (CMS-HCC) (HCC-CMS); Depression; GERD without esophagitis Social History Tobacco Use Types Packs/Day Years [...] kg (278 lb 8 oz) 08/19/2015 1013 ES T Height 172.7 cm (5' 7.99) 08/19/2015 1013 EST Body Mass Index 42.36 08/19/2015 1013 EST documented in this encounter Patient Instructions * Patient Instructions* Allen Thompson PA - 08/19/2015 10:51 EST Things To [...] OK walking around the hallways as soon aspossible after your surgery (to prevent blood clots). [...] Dispensed Refills Start Date End Da te oxyCODONE (ROXICODONE) 5 mg/5 mL solution Take 5-10 mL by mouth every 4 hours as needed for Pain starting after surgery on 09/05/14 Daily Max: 60 mg 150 mL 0 08/19/2015 09/27/2017 ondansetron (ZOFRAN-ODT) 4 mg disintegrating tablet Take 1 Tab by mouth every 8 hours as needed for Nausea starting after surgery on 09/05/14 12 Tab 0 08/19/2015 08/31/2015 omeprazole (PRILOSEC) 40 mg capsule Take 1 Cap by mouth daily starting after surgery on 09/05/14 30 Cap 12 08/19/2015 08/31/2015 documented in this encounter Progress Notes * Allen Thompson PA - 09/14/2015 1403 EST [...] Daily Max: 60 mg 700 mL 0 ??? [...] strength intact in upper and lower extremities, patellar reflex 2+ bilaterally UGI and EGD normal Assessment: [...] 60 mg Dispense: 150 mL Refill: 0 * Lux Dumont RD - 08/19/2015 6472 EST Medical Nutrition Evaluation-PRE OP NOTE Bariatric [...] diet progression. Plan: Diet Goals: Calorie goal [phone] and Pre-op liquid diet start date 08/26/15 Exercise Goals: Maintain current exercise Weight Loss Goal: Approximately 16 lbs Weight Loss Remaining to Goal: met goal Reviewed: Food/Activity Record and Post Operative Diet Next Visit: Post-up follow up visit documented in this encounter Plan of Treatment Upcoming Encounters Date Type Department Care Team (Late st Contact Info) Description 04/27/2024 14:30 EDT Telemedicine [facility] Neurology - [address] [place] [address] Kj Gloria MD PhD 1 [facility], Level [address] [place] [phone] 04/30/2024 9:30 EDT Office Visit [facility] Interventional Pain [address] [place] [address] Catalino Garrett MD [address] [facility] [address] [place] [address] 09/18/2024 11:00 EST Office Visit [facility] Bariatric Surgery - [place] [address] [address] [place], [place] [phone] Allen Thompson PA-C 111 [facility], [address] [place] [phone] documented as of this encounter Procedures Procedure Name Priority Date/Time Associated Diagnosis Comments ECG REPORT - SCANNED 08/24/2015 15:13 EST EKG 12-LEAD Routine 08/19/2015 11:27 EST Preop examination Morbid obesity with BMI of 40.0-44.9, adult (CMS-HCC) ([facility]) Depression GERD without esophagitis documented in this encounter Results * ECG REPORT - SCANNED (08/24/2015 15:13 EST) 08/24/2015 15:1 3 EST Scan 2 Continuous Linter Drier Operator PROCEDURE/MINOR LÓPEZ GICAL ORDERABLES * EKG 12-LEAD (08/19/2015 11:27 EST) 08/19/2015 11:2 7 EST Narrative [facility] EKG - 08/23/2015 12:12 EST ? [facility] ? Test Date: ?2015-08-19 Pat Name: ? TIAZAHRA HITCHCOCK ? Department: ?? WillBariatri ? Room: ? Gender: ? F ?Harness Mender: ?? [id number] : ?[id number] ? Requested By: ASTRID Trinh Order Number: [id number] ? Reading MD: ?? LAZARO WEBBER MD ? Measurements Intervals ?[place] ? Rate: ? 82 ? P: ?57 MO: ? 138 ?QRS: ?13 QRSD: ? 81 ? T: ?36 QT: ? 366 ? QTc: ?429 ? Interpretive Statements SINUS RHYTHM Automated Interpretation. ??Physician Interpretation to follow. No previous ECG available for comparison I reviewed the tracing and have either agreed or edited the findings in this report. Electronically Signed On 08-23-15 12:12:29 EST by LAZARO WEBBER MD. Procedure Note Lazaro Webber MD - 08/23/2015 [facility] Test Date: 2015-08-19 Pat Name: TIA HITCHCOCK Department: WillBariatri Room: Gender: F Harness Mender: [id number] : 1975 Requested By: ASTRID ARCE Order Number: [id number] Reading MD: LAZARO WEBBER MD Measurements Intervals [place] Rate: 82 P: 57 MO: 138 QRS: 13 QRSD: 81 T: 36 QT: 366 QTc: 429 Interpretive Statements SINUS RHYTHM Automated Interpretation. Physician Interpretation to follow. No previous ECG available for comparison I reviewed the tracing and have either agreed or edited the findings inthis report. Electronically Signed On 08-23-15 12:12:29 EST by LAZARO BUSH. Allen Thompson PA-C CARDIAC ECG ORDERABLES [facility] EKG documented in this encounter Visit Diagnoses Diagnosis Preop examination- Primary Preoperative examination, unspecified Morbid obesity with BMI of 40.0-44.9, adult ([facility]) Morbid obesity Depression Depressive disorder, not elsewhere classified GERD without esophagitis Esophageal reflux documented in this encounter Care Teams Army Ranger Relationship Specialty Start Date End Date Juma Herrera MD [address] [facility] [place] [phone] PCP - General 09/25/12 12/07/18 documented as of this encounter
--- OUTSIDE RECORDS SUMMARY | 2024-04-22 23:51 | XMS_ITS | Encounter Summary ---
Author Organization [facility] Address [address] [place] [address] Care Team Providers Care Cane Flume Watcher Name Role Phone Juma Herrera MD Primary Care Provider [phone] Reason for Visit * Consult, Test and Treat (Routine) - Specialty Report Received Specialty Diagnoses / Procedures [facility] Referred To Contact Diagnoses GERD (gastroesophageal reflux disease) Procedures UPPER ENDOSCOPY Master Ugarte MD [address] [place] [phone] Cheng Lamar MD [address] [place] [phone] Referral ID Status Reason Start Date Expiration Date V isits Requested Visits Authorized [id number] Specialty Report Received 01/28/2015 1 1 Encounter Details Date Type Department Care Team (Late st Contact Info) Description 02/10/2015 11:50 EDT - 02/10/2015 23:59 EDT Hospital Encounter [facility] Endoscopy - [address] [address] Cheng Lamar MD [address] [place] [phone] Discharge Disposition: Home or Self Care Social [...] 3 times daily. 180 Cap 3 08/21/2012 ACETAMINOPHEN (TYLENOL ORAL) Take 650 mg by mouth as needed. 09/07/2015 HYDROcodone-acetaminophe n (NORCO) 5-325 mg per tablet Take 1 Tab by mouth every 6 hours as needed for Pain. 60 Each 0 09/10/2013 08/15/2015 oxyCODONE (ROXICODONE) 5 mg immediate release tablet Take 10 mg by mouth every 4 hours. 09/07/2015 prochlorperazine (COMPAZINE) 10 mg tablet Take 1 Tab by mouth every 6 hours as needed for Nausea. 10 Tab 2 09/29/2012 08/31/2015 PROPRANOLOL HCL (PROPRANOLOL ORAL)Indications:migrain e Take 120 mg by mouth daily 01/28/2019 rizatriptan (MAXALT) 10 mg tablet Take 10 mg by mouth once as needed. May repeat in 2 hours if needed 12/18/2021 documented as of this encounter Discharge Disposition Disposition Code Departure Means Destination Home or Self Halfway documented in this encounter Plan of Treatment Upcoming Encounters Date Type Department Care Team (Late st Contact Info) Description 04/27/2024 14:30 EDT Telemedicine [facility] Neurology - S [address] [phone] Kj Gloria MD PhD 1 [facility] Level 2 [place] [address] 04/30/2024 9:30 EDT Office Visit [facility] Interventional Pain [address] [place], [place] [phone] Catalino Garrett MD [address] [place] [address] 09/18/2024 11:00 EST Office Visit [facility] Bariatric Surgery - [place] [address] [place], [place] [address] Allen Thompson PA-C [address] [facility], [address] [place] [address] documented as of this encounter Visit Diagnoses Not on filedocumented in this encounter Care Teams Cane Flume Watcher Relationship Specialty Start Date End Date Juma Herrera MD [address] [phone] PCP - General 09/25/12 12/07/18 documented as of this encounter
--- OUTSIDE RECORDS SUMMARY | 2024-04-22 23:51 | XMS_ITS | Encounter Summary ---
Author Organization [facility] Address [address] [place] [address] Care Team Providers Care Rodbuster Name Role Phone Juma Herrera MD Primary Care Provider [phone] Reason for Visit * Reason Onset Date Comments Results 07/09/2014 Encounter Details Date Type Department Care Team (Late st Contact Info) Description 07/09/2014 Telephone [facility] Interventional Pain [address] [place] [address] Korey Justice RN Results Social History Tobacco Use Types [...] encounter Miscellaneous Notes * Telephone Encounter - Korey Justice RN - 07/13/2014 1244 EST RN left third message to call with relief day of injection. * Telephone Encounter - Korey Justice RN - 07/12/2014 1437 EST RN made 2nd call to patient for results info. Left message to call with this info. * Telephone Encounter - Korey Justice RN - 07/09/2014 1108 EST RN called patient and left a message to call with hours and % of relief. Date and type of procedure:07/08/14 bl SIJ Provider:Alejandra Hours of relief: % of relief: Next appointment: prn * Telephone Encounter - Korey Justice RN - 07/09/2014 1108 EST Message copied by KOREY JUSTICE on SatJul 09, 2014 1104 ------ Message from: RL FLEMING Created: [facility] Jul 08, 2014 1440 Regarding: result Contact: Facet Diagnostic Block done on: 07/08/14 Provider: alejandra Levels: niko martinez Call back number:[phone] ------ documented in this encounter Plan of Treatment Upcoming Encounters Date Type Department Care Team (Late st Contact Info) Description 04/27/2024 14:30 EDT Telemedicine [facility] Neurology - [address] [phone] Kj Gloria MD PhD 1 [facility], Level [address] [place] [phone] 04/30/2024 9:30 EDT Office Visit [facility] Interventional Pain [address] [place] [address] Catalino Garrett MD 62 [facility] [address] [place] [address] 09/18/2024 11:00 EST Office Visit [facility] Bariatric Surgery - [place] [address] [place], [place] [address] Allen Thompson PA-C 111 [facility], [address] [place] [address] documented as of this encounter Visit Diagnoses Not on filedocumented in this encounter Care Teams Rodbuster Relationship Specialty Start Date End Date Juma Herrera MD [address] [facility] [place] [phone] PCP - General 09/25/12 12/07/18 documented as of this encounter
--- OUTSIDE RECORDS SUMMARY | 2024-04-22 23:51 | XMS_ITS | Encounter Summary ---
Author Organization [facility] Address [address] [place] [address] Care Team Providers Care Rat Breeder Name Role Phone Juma Herrera MD Primary Care Provider [phone] Reason for Visit * Reason Onset Date Comments Results 08/24/2015 Encounter Details Date Type Department Care Team (Late Contact Info) Description 08/24/2015 Telephone [facility] Bariatric Surgery - [address] [address] Mary Rosales RN Results Social History Tobacco Use Types [...] Encounters Date Type Department Care Team (Late Contact Info) Description 04/27/2024 14:30 EDT Telemedicine [facility] Neurology - S [address] [address] Kj Gloria MD PhD [address] [place] [address] 2 [place] [phone] 04/30/2024 9:30 EDT Office Visit [facility] Interventional Pain [address] [place], [place] [phone] Catalino Garrett MD [address] [facility] [address] [place] [address] 09/18/2024 11:00 EST Office Visit [facility] Bariatric Surgery - [place] [address] [place], [place] [phone] Allen Thompson PA-C 111 [facility], Level [address] [place] [phone] documented as of this encounter Visit Diagnoses Not on filedocumented in this encounter Care Teams Rat Breeder Relationship Specialty Start Date End Date Juma Herrera MD [address] [place] [phone] PCP - General 09/25/12 12/07/18 documented as of this encounter
--- OUTSIDE RECORDS SUMMARY | 2024-04-22 23:51 | XMS_ITS | Encounter Summary ---
Author Organization [facility] Address [address] [place] [address] Care Team Providers Care Tool Designer Apprentice Name Role Phone Juma Herrera MD Primary Care Provider [phone] Reason for Visit * Reason Comments Obesity H Encounter Details Date Type Department Care Team (Late st Contact Info) Description 08/19/2015 10:30 EST [facility] Bariatric Surgery - [place] [address] [place], [place] [phone] Master Ugarte MD [address] [place] [address] Preop examination (Primary Dx) Social History Tobacco Use Types [...] EST documented in this encounter Progress Notes * Master Ugarte MD - 08/19/2015 1104 EST Consented Nl ge jxn Needs breath test Nl e gram documented in this encounter Plan of Treatment Upcoming Encounters Date Type Department Care Team (Late st Contact Info) Description 04/27/2024 14:30 EDT Telemedicine [facility] Neurology - [address] [place] [address] [place], [place] [address] Kj Gloria MD PhD 1 [facility], Level [address] [place] [phone] 04/30/2024 9:30 EDT Office Visit [facility] Interventional Pain 62 [facility] [place], [place] [phone] Catalino Garrett MD 62 [facility] [address] [place] [address] 09/18/2024 11:00 EST Office Visit [facility] Bariatric Surgery - [place] [address] [place], [place] [phone] Allen Thompson, PA-C 111 [facility], Level [address] [place] [phone] documented as of this encounter Visit Diagnoses Diagnosis Preop examination- Primary Preoperative examination, unspecified documented in this encounter Care Teams Tool Designer Apprentice Relationship Specialty Start Date End Date Juma Herrera MD [address] [facility] [place] [phone] PCP - General 09/25/12 12/07/18 documented as of this encounter
--- OUTSIDE RECORDS SUMMARY | 2024-04-22 23:51 | XMS_ITS | Encounter Summary ---
Author Organization [facility] Address [address] [place] [address] Care Team Providers Care Skoog Machine Operator Name Role Phone Alejandra Trevino MD Primary Care Provider [phone] Encounter Details Date Type Department Care Team (Late Contact Info) Description 05/06/2014 Results Only [facility] ([facility] [address] [place] [address] Dariela Stiles MD [address] [place] [address] [place] [address] Social History Tobacco Use Types Packs/Day Years [...] Contact Info) Description 04/27/2024 14:30 EDT Telemedicine [facility] [place] [facility] - [address] [phone] Kj Gloria MD PhD 1 [facility] 2 [place] [phone] 04/30/2024 9:30 EDT Office Visit [facility] Interventional Pain [address] [place] [address] Catalino Garrett MD [address] [facility] [address] [place] [address] 09/18/2024 11:00 EST Office Visit [facility] [place] Bariatric Surgery - [place] [address] [place] [address] Allen Thompson PA-C 111 [facility] 5 [place] [address] documented as of this encounter Procedures Procedure Name Priority Date/Time Associated Diagnosis Comments PAP TEST- RESULT ONLY Routine 05/06/2014 0:00 EDT documented in this encounter Results * PAP TEST- RESULT ONLY (05/06/2014 0:00 EDT) Pathology Report: CYTOPATHOLOGY REPORT Reports generated via electronic interface contain original data; however they are lacking the format of the original report. Caution should be taken when reading/interpreti ng unformatted reports. Name: ? TIA HITCHCOCK ? Accession #: ? [id number] ? : ? 1975 (Age: 38) ??F ?Collect Date: ? 05/06/2014 ? Location: ? [facility] ? Receive Date: ? 05/07/2014 ? Provider: DARIELA STILES MD Copy to: ALEJANDRA TREVINO MD ? Final Report SPECIMEN ADEQUACY ? Satisfactory for Evaluation - transformation zone component absent GENERAL CATEGORIZATION ? Negative for Intraepithelial Lesion or Malignancy INTERPRETATION ? Shift in abram present suggestive of bacterial vaginosis. Hormonal/Contracep tive status: Tubal ligation: Bilateral Specimen/Source: ??Pap Test, Cervix/Endocervix, ThinPrep Imaging System with manual evaluation Document reviewed and electronically signed by: ? RENE Saleem(ASCP) ? Report ??Date: 05/12/2014 13:15 HPV with Pap Test ? Date Ordered: ? 05/12/2014 ? Status: ?? Signed Out ?Date Complete: ? 05/14/2014 ? By: ??System Interface ? Date Reported: ? 05/14/2014 ? Interpretation RESULT: Negative for HPV. No E6 or E7 mRNA is detected from HPV types 16,18,31,33,35, 39,45,51,52,56,58, 59,66, and 68 by brasswind instrument repairer mediated amplification. Comments Document reviewed and electronically signed by: ? System Interface ? Report date: 05/14/2014 By the signature above, the attending physician certifies that he/she has personally conducted a gross and/or microscopic examination of the described specimens and rendered or confirmed the above diagnosis. End of Report [facility] 05/06/2014 05/07/2014 Dariela Stiles MD PATHOLOGY ORDERABLES [facility] [address] [place] [address] documented in this encounter Visit Diagnoses Not on filedocumented in this encounter Care Teams Skoog Machine Operator Relationship Specialty Start Date End Date Alejandra Trevino MD [address] [place] [phone] PCP - General 09/25/12 12/07/18 documented as of this encounter
--- OUTSIDE RECORDS SUMMARY | 2024-04-22 23:51 | XMS_ITS | Encounter Summary ---
Author Organization [facility] Address [address] [place] [address] Care Team Providers Care Web Site Developer Name Role Phone Juma Herrera MD Primary Care Provider [phone] Reason for Referral * Consult, Test and Treat (Routine) - Specialty Report Received Specialty Diagnoses / Procedures [facility] Referred To Contact Diagnoses GERD (gastroesophageal reflux disease) Procedures UPPER ENDOSCOPY Master Ugarte MD [address] [place] [phone] Chegn Lamar MD [address] [place] [address], [facility] 5 [place] [address] Referral ID Status Reason Start Date Expiration Date V isits Requested Visits Authorized [id number] Specialty Report Received 01/28/2015 1 1 Reason for Visit * Reason Comments Obesity Pre Op F/U EGD and E sophagram Encounter Details Date Type Department Care Team (Late st Contact Info) Description 01/28/2015 9:15 EDT Office Visit [facility] Bariatric Surgery [address] [address] Master Ugarte MD [address] [place] [phone] GERD (gastroesophageal reflux disease) (Primary Dx) [...] EDT Height 168.5 cm (5' 6.34) 01/28/2015 0910 EDT Body Mass Index 48.82 01/28/2015 0910 EDT documented in this encounter Progress Notes * Master Ugarte MD - 01/28/2015 0945 EDT Unable to pass scope E gram negative Will have gi pass scope May need sbft * Julia Lux Ana Luisa - 01/28/2015 0921 EDT Medical Nutrition Evaluation-PRE OP NOTE Bariatric Clinic Nutrition Pre-op Visit Visit Number: 2 Desired surgery: Gastric Sleeve/Gastric Bypass Subjective: Food logs: [employer] Meal pattern:3 melas Average caloric intake:1300 to [...] days. Has given up soda, junk foods andalso gave up red meat. Plan: Diet Goals: [...] Contact Info) Description 04/27/2024 14:30 EDT Telemedicine [facility] Neurology - [address] [place] [address] [place], [place] [phone] Kj Gloria MD PhD 1 [facility] Level [address] [place] [phone] 04/30/2024 9:30 EDT Office Visit [facility] Interventional Pain 62 [facility] [place], [place] [phone] Catalino Garrett MD 62 [facility] [address] [place] [address] 09/18/2024 11:00 EST Office Visit [facility] Bariatric Surgery [facility] [address] [place], [place] [address] Allen Thompson, PA-C 111 [facility], Level [address] [place] [phone] Scheduled Orders Name Type Priority Associated Diagnoses Orde r Schedule UPPER ENDOSCOPY GI Routine GERD (gastroesophageal reflux disease) Ordered: 01/28/2015 documented as of this encounter Visit Diagnoses Diagnosis GERD (gastroesophageal reflux disease)- Primary Esophageal reflux documented in this encounter Care Teams Web Site Developer Relationship Specialty Start Date End Date Juma Herrera MD [address] [facility] [place] [phone] PCP - General 09/25/12 12/07/18 documented as of this encounter
--- OUTSIDE RECORDS SUMMARY | 2024-04-22 23:51 | XMS_ITS | Encounter Summary ---
Author Organization [facility] Address [address] [place] [address] Care Team Providers Care Lump Maker Name Role Phone Juma Herrera MD Primary Care Provider [phone] Reason for Referral * Consult (Routine) - Specialty Report Received Specialty Diagnoses / Procedures Referred By Contac t Referred To Contact Pain Medicine Diagnoses Lumbago S/P lumbar fusion Lumbar spondylosis Starr Hart PA-C [address] [place] [address] [facility] [address] [place] [address] Referral ID Status Reason Start Date Expiration Date Visits Requested Visits Authorized [id number] Specialty Report Received Specialty Services Required 05/04/2014 1 1 Question Answer Reason for Request: consider repeat SI Joint injections vs. facet joint injections * Referral (Routine) - Closed Specialty Diagnoses / Procedures Referred By Contac t Referred To Contact Diagnoses Lumbago S/P lumbar fusion Lumbar spondylosis Starr Hart PA-C [address] [place] [address] Referral ID Status Reason Start Date Expiration Date V isits Requested Visits Authorized [id number] Closed Specialty Services Required 05/04/2014 1 1 Question Answer Reason for Request: aquatic therapy * Radiology Services (Routine) - Closed Specialty Diagnoses / Procedures Referred By Contac t Referred To Contact Diagnoses Lumbago Procedures L SPINE 4 OR MORE VIEWS Starr Hart PA-C [address] [place] [address] Referral ID Status Reason Start Date Expiration Date Visits Re quested Visits Authorized [id number] Closed 05/04/2014 1 1 Reason for Visit * Reason Comments Back Pain Encounter Details Date Type Department Care Team (Late st Contact Info) Description 05/04/2014 12:45 EDT Office Visit [facility] Spine Program [place] [address] Starr Hart PA-C Lumbago (Primary Dx); S/P lumbar fusion; Lumbar spondylosis Discharge Disposition: Auto Discharge Social History Tobacco [...] Dispensed Refills Start Date End Da te meloxicam (MOBIC) 7.5 mg tablet Take 1 Tab by mouth daily. 30 Tab 2 05/04/2014 02/03/2015 documented in this encounter Discharge Disposition Disposition Code Departure Means Destination Auto Discharge documented in this encounter Progress Notes * Starr Hart PA - 05/04/2014 1315 EDT [...] frequent and progressively worsening. The pain is located over the bilateral sacroiliac joints and the lower lumbar spine . She notes that it is a dailyconstant pain worse with standing for 5-10 minutes. Leaning forward [id number] is somewhat all eviating. 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 Within the last couple weeks she has been experiencing a tightness discomfort in the right hip and right lateral thigh just over the knee and not extending any further down the lower extremity. She did physical therapy recently for 2 months and finished lastweek without any relief. Her primary care provider [...] follow package directions 1 Each 0 ??? Minden-3 Fatty Acids-Vitamin E (FISH OIL) 1,000 mg [...] Right antalgic gait, ambulates with cane. Patient is able to walk on heels and toes without difficulty. Truncal flexion with fingertips to and degrees of truncal extension. 5/5 hip flexion, TA, peroneal strength [...] back pain. Left SLR elicits left lower back pain. Negative clonus. Babinski is downgoing. Skin: Skin [...] joint degenerative changes. Lumbar MRI without contrast [facility] 02/09/2014- laminectomy at L5-S1 with posterior fusion including pedicle screws and rods. No evidence of recurrent disc herniation. Mild neuroforaminal narrowing bilaterally L4-5 L5-S1. L3-4 mild disc bulging eccentric towards the left with moderate left for narrowing. No evidence of central stenosis. Assessment: 38-year-old female with lower back pain which may be secondary to sacroiliitis. She didhave some very short term relief with the [...] work 5 hour shifts now. At this time should like to proceed with the following plan: [...] Telemedicine [facility] Neurology - [address] [address] Kj Gloria MD PhD 1 [facility] [address] 2 [place] [phone] 04/30/2024 9:30 EDT Office Visit [facility] Interventional Pain [address] [facility] [place], [place] [phone] Catalino Garrett MD [address] [facility] [address] [place] [address] 09/18/2024 11:00 EST Office Visit [facility] Bariatric Surgery - [place] [address] [place] [address] Allen Thompson PA-C [address] [place] [address], [address] [place] [phone] Scheduled Referrals Name Type Priority Associated Diagnoses Order Schedule AMB CONS/FOLLOW UP PHYSICAL THERAPY Outpatient Referral Routine Lumbago S/P lumbar fusion Lumbar spondylosis Ordered: 05/04/2014 AMB CONS/FOLLOW UP PAIN INTERVENTIONAL Outpatient Referral Routine Lumbago S/P lumbar fusion Lumbar spondylosis Ordered: 05/04/2014 documented as of this encounter Procedures Procedure Name Priority Date/Time Associated Diagnosis Comments L SPINE 4 OR MORE VIEWS Routine 05/04/2014 13:18 EDT Lumbago documented in this encounter Results * L SPINE 4 OR MORE VIEWS (05/04/2014 13:18 EDT) Anatomical Region Laterality Modality Other 05/04/2014 13:1 8 EDT 05/04/2014 14:21 EDT Narrative 05/04/2014 14:21 EDT LUMBAR SPINE 4 VIEWS May 04, 2014 Indication: Low back pain, right leg pain. Comparison: May 16, 2011 lumbar spine films and MRI April 05, 2011 and from [facility]. Technique: AP and lateral flexion, neutral and extension views of the lumbar spine were obtained. Findings: There has been previous laminectomy at L5-S1. Posterior hardware fusion is demonstrated. Gross periprosthetic lucency is not appreciated. Hardware appears intact. There is posterolateral bone graft material present bilaterally which appears to be solidly bridged. A bone graft stimulator is in place with its leads at the L5-S1 level. There is minimal rightward convex curvature of the lumbar spine with slight lateral subluxation of L3 on L4. No janice- or retrolisthesis is demonstrated. Vertebral body heights are preserved. There is mild disc space narrowing at L3-L4 and more moderate disc space narrowing at L5-S1 consistent with degenerative disc disease. Hypertrophic changes of the facet joints are demonstrated diffusely. There are surgical clips in the right upper quadrant consistent with prior cholecystectomy. Procedure Note 05/04/2014 LUMBAR SPINE 4 VIEWS May 04, 2014 Indication: Low back pain, right leg pain. Comparison: May 16, 2011 lumbar spine films and MRI April 05, 2011 and from [facility]. Technique: AP and lateral flexion, neutral and extension views of the lumbar spine were obtained. Findings: There has been previous laminectomy at L5-S1. Posterior hardware fusion is demonstrated. Gross periprosthetic lucency is not appreciated. Hardware appears intact. There is posterolateral bone graft material present bilaterally which appears to be solidly bridged. A bone graft stimulator is in place with its leads at the L5-S1 level. There is minimal rightward convex curvature of the lumbar spine with slight lateral subluxation of L3 on L4. No janice- or retrolisthesis is demonstrated. Vertebral body heights are preserved. There is mild disc space narrowing at L3-L4 and more moderate disc space narrowing at L5-S1 consistent with degenerative disc disease. Hypertrophic changes of the facet joints are demonstrated diffusely. There are surgical clips in the right upper quadrant consistent with prior cholecystectomy. Starr Hart PA-C IMG DIAGNOSTIC PARMINDER GING ORDERABLES documented in this encounter Visit Diagnoses Diagnosis Lumbago- Primary S/P lumbar fusion Arthrodesis status Lumbar spondylosis Lumbosacral spondylosis without myelopathy documented in this encounter Historical Medications * This list may reflect changes made after this encounter. Medication Sig Dispensed Refills Start Date End Date oxyCODONE (ROXICODONE) 5 mg immediate release tablet Take 10 mg by mouth every 4 hours. 09/07/2015 added in this encounter Care Teams Lump Maker Relationship Specialty Start Date End Date Juma Herrera MD [address] [facility] [place] [phone] PCP - General 09/25/12 12/07/18 documented as of this encounter
--- OUTSIDE RECORDS SUMMARY | 2024-04-22 23:51 | XMS_ITS | Encounter Summary ---
Author Organization [facility] Address [address] [place] [address] Care Team Providers Care Dosier Operator Name Role Phone Jmua Herrera MD Primary Care Provider [phone] Reason for Visit * Reason Comments Follow-up Neck pain Encounter Details Date Type Department Care Team (Late st Contact Info) Description 03/20/2013 11:30 EDT Office Visit [facility] Spine Program - [address] [place] [address] Ana Rosa Mendoza MD [address] [place] [address] [place] [address] Cervicocranial syndrome (Primary Dx) Social History Tobacco Use Types [...] documented in this encounter Progress Notes * Ana Rosa Mendoza MD - 03/21/2013 0739 EDT Spine [place] (SpINE) PROGRESS / FOLLOWUP NOTE - 03/20/2013 [...] states that she has minimal neck pain. She still gets right interscapular pain, as well as right arm symptoms in the same distribution as prior to surgery, only much less, and seems to be gradually getting better, although it is worsened with activities. OBJECTIVE: Incision well healed, 5/5 all muscle groups. DIAGNOSTIC STUDIES: X-ray lateral C-spine demonstrates her hardware in good position, fusion consolidating. ASSESSMENT: Patient making appropriate progress. Her fusion appears to be mostly consolidated and on the right course radiographically. Ongoing arm symptoms are [...] Ana Rosa Mendoza MD tn Dictation Date: [id number] * Ana Rosa Mendoza MD - 03/20/2013 1135 EDT This office note has been dictated. ANA ROSA MENDOZA MD documented in this encounter Plan of Treatment Upcoming Encounters Date Type Department Care Team (Late st Contact Info) Description 04/27/2024 14:30 EDT Telemedicine [facility] Neurology - [address] [place] [address] [place], [place] [address] Ana Rosa Gloria MD PhD 1 [facility], [address] [place] [phone] 04/30/2024 9:[address] [facility] Interventional Pain [address] [place], [place] [phone] Catalino Garrett MD [address] [place] [address] 09/18/2024 11:00 EST Office Visit [facility] Bariatric Surgery - [place] [address] [place], [place] [phone] Allen Thompson PA-C [address] [facility], [address] [place] [phone] documented as of this encounter Visit Diagnoses Diagnosis Cervicocranial syndrome- Primary documented in this encounter Care Teams Dosier Operator Relationship Specialty Start Date End Date Juma Herrera MD [address] [facility] [place] [phone] PCP - General 09/25/12 12/07/18 documented as of this encounter
--- OUTSIDE RECORDS SUMMARY | 2024-04-22 23:51 | XMS_ITS | Encounter Summary ---
Author Organization [facility] Address [address] [place] [address] Care Team Providers Care Canceling Machine Operator Name Role Phone Juma Herrera MD Primary Care Provider [phone] Encounter Details Date Type Department Care Team (Late st Contact Info) Description 04/21/2015 Phlebotomy Only [facility] - Main [address] [address] Color Adviser, Outpatient Morbid obesity with BMI of 45.0-49.9, adult (CMS-HCC) (HCC-CMS) (Primary Dx) Social History Tobacco Use [...] [facility] Neurology - S [address] [phone] Kj Gloria MD PhD 1 [facility] [address] [place] [phone] 04/30/2024 9:30 EDT Office Visit [facility] Interventional Pain [address] [facility] [place], [place] [phone] Catalino Garrett MD [address] [facility] [address] [place] [address] 09/18/2024 11:00 EST Office Visit [facility] Bariatric Surgery - [place] [address] [place] [address] Allen Thompson PA-C [address] [place] [address], [facility], [address] [place] [address] documented as of this encounter Procedures Procedure Name Priority Date/Time Associated Diagnosis Comments VITAMIN D (25,[place]) Routine 04/21/2015 15: 08 EDT Morbid obesity with BMI of 45.0-49.9, adult ([facility]) ([facility]) COMPLETE BLOOD COUNT Routine 04/21/2015 15:08 EDT Morbid obesity with BMI of 45.0-49.9, adult ([facility]-H[facility]) ([facility]) TSH Routine 04/21/2015 15:08 EDT Morbid obesity with BMI of 45.0-49.9, adult ([facility]-H[facility]) ([facility]) HEMOGLOBIN A1C Routine 04/21/2015 15:08 EDT Morbid obesity with BMI of 45.0-49.9, adult ([facility]-H[facility]) ([facility]) FERRITIN Routine 04/21/2015 15:08 EDT Morbid obesity with BMI of 45.0-49.9, adult (CMS-HCC) (HCC-[facility]) VITAMIN B12 Routine 04/21/2015 15:08 EDT Morbid obesity with BMI of 45.0-49.9, adult (CMS-HCC) ([facility]CC-[facility]) CREATININE Routine 04/21/2015 15:08 EDT Morbid obesity with BMI of 45.0-49.9, adult ([facility]-H[facility]) ([facility]) HEPATIC FUNCTION PANEL (ALB,ALK PHOS,ALT,AST,DBIL,TO T GILBERTO,TOT PROT) Routine 04/21/2015 15:08 EDT Morbid obesity with BMI of 45.0-49.9, adult (CMS-HCC) (HCC-CMS) documented in this encounter Results * TSH (04/21/2015 15:08 EDT) TSH 0.51 0.35 - 5.00 uIU/ml 04/21/2015 20:25 EDT [facility] Blood specimen (specimen) BLOOD SPECIMEN / Unknown 04/21/2015 15:08 EDT 04/21/2015 17:46 EDT Allen Trinh [place] CHEMISTRY & BLOOD GAS ORDERABLES Performing Organization Address [facility] Co de Phone Number [facility] [address] [place] [address] * (ABNORMAL) VITAMIN D (25,OH) (04/21/2015 15:08 EDT) 25OH Vitamin D Tot 26.6(L) 30 - 100 ng/ml 04/22/2015 13:39 EDT [facility] Comment: Reference Range: Deficient = <10 ng/ml Insufficient = 10-30 ng/ml Sufficient = 30-100 ng/ml Toxic = >100 ng/ml Blood specimen (specimen) BLOOD SPECIMEN / Unknown 04/21/2015 15:08 EDT 04/21/2015 17:46 EDT Allen Trinh [place]-C CHEMISTRY & BLOOD GAS ORDERABLES Performing Organization Address [facility] Co de Phone Number [facility] [address] [place] [address] * (ABNORMAL) HEPATIC FUNCTION PANEL (ALB,ALK PHOS,ALT,AST,DBIL,TOT GILBERTO,TOT PROT) (04/21/2015 15:08 EDT) Albumin 3.8 3.4 - 4.9 g/dl 04/21/2015 19:18 [facility] Total Protein 6.4 6.3 - 8.2 g/dl 04/21/2015 19:18 [facility] Total Alkaline Phosphatase 56 38 - 126 U/L 04/21/2015 19:18 [facility] ALT 21 <53 U/L 04/21/2015 19:18 [facility] AST 14(L) 15 - 46 U/L 04/21/2015 19:18 [facility] Unconjugated Bilirubin 0.0 0.0 - 1.1 mg/dl 04/21/2015 19:18 [facility] Conjugated Bilirubin 0.0 0.0 - 0.3 mg/dl 04/21/2015 19:18 [facility] Bilirubin, Total <0.5 <1.4 mg/dl 04/21/20 19:18 [facility] Blood specimen (specimen) BLOOD SPECIMEN / Unknown 04/21/2015 15:08 EDT 04/21/2015 17:46 EDT Allen Thompson PA-C CHEMISTRY & BLOOD GAS ORDERABLES [facility] [address] [place] [address] * HEMOGLOBIN A1C (04/21/2015 15:08 EDT) Hemoglobin A1C 5.4 % 04/22/2015 10:28 [facility] Comment: Reference Range: <5.7% Normal 5.7-6.4% Increased risk for diabetes =>6.5% Diagnostic for diabetes (if confirmed) The A1c goal for non adults in general is <7%. The A1c goal for selected patients may be significantly lower than 7% if this can be achieved without significant hypoglycemia or other adverse effects of treatment. Est Avg Glucose 108 mg/dl 5 10:28 [facility] Comment: eAG represents the A1c result expressed as average glucose in mg/dl. Blood specimen (specimen) BLOOD SPECIMEN / Unknown 04/21/2015 15:08 EDT 04/21/2015 17:46 EDT Allen Bennett-Dakotasy PA-C CHEMISTRY & BLOOD GAS ORDERABLES Performing Organization Address City/[facility] Co de Phone Number [facility] [address] [place] [address] * FERRITIN (04/21/2015 15:08 EDT) Ferritin 32 10 - 291 ng/mL 04/21/2015 20:17 EDT [facility] Blood specimen (specimen) BLOOD SPECIMEN / Unknown 04/21/2015 15:08 EDT 04/21/2015 17:46 EDT Allen Bennett-Carminesy PA-C CHEMISTRY & BLOOD GAS ORDERABLES Performing Organization Address [facility] de Phone Number [facility] [address] [place] [address] * CREATININE (04/21/2015 15:08 EDT) Creatinine 0.68 0.52 - 1.04 mg/dl 04/21/2015 19:18 EDT [facility] GFR, Calculated 109 >60 ml/min/1.7 3m2 04/21/2015 19:18 EDT [facility] Comment: eGFR calculated using CKD-EPI equation for non Americans. Multiply eGFR by 1.16 for Americans. Blood specimen (specimen) BLOOD SPECIMEN / Unknown 04/21/2015 15:08 EDT 04/21/2015 17:46 EDT Allen Bennett-Dakotasy PA-C CHEMISTRY & BLOOD GAS ORDERABLES Performing Organization Address [facility] Co de Phone Number [facility] [address] [place] [address] * (ABNORMAL) HEMAGRAM (04/21/2015 15:08 EDT) WBC 9.60 4.0 - 12.4 K/cmm 04/21/2015 18:04 EDT [facility] RBC 4.81 3.86 - 5.04 M/cmm 04/21/2015 18:04 T [facility] Hemoglobin 14.4 11.6 - 15.2 gm/dl 04/21/2015 18:04 [facility] HCT 42.9 34.9 - 44.4 % 04/21/2015 18:04 [facility] MCV 89 81 - 98 fl 04/21/2015 18:04 [facility] MCH 30.1 26.7 - 33.3 pg 04/21/2015 18:04 [facility] MCHC 33.7 32.1 - 35.9 gm/dl 04/21/2015 18:04 [facility] RDW-CV 14.6 11.7 - 14.6 % 04/21/2015 18:04 [facility] RDW-SD 45.5 37.6 - 50.3 fl 04/21/2015 18:04 [facility] PLT 330(H) 141 - 320 K/cmm 04/21/2015 18:04 [facility] MPV 8.9 7.5 - 11.2 fl 04/21/2015 18:04 [facility] Blood specimen (specimen) BLOOD SPECIMEN / Unknown 04/21/2015 15:08 EDT 04/21/2015 17:46 EDT Allen Thompson PA-C HEMATOLOGY & PF4 ORDERABLES Performing Organization Address City/State/[facility] Co de Phone Number [facility] [address] [place] [address] * VITAMIN B12 (04/21/2015 15:08 EDT) Vitamin B-12 352 211 - 911 pg/ml 04/21/2015 20:17 EDT [facility] Blood specimen (specimen) BLOOD SPECIMEN / Unknown 04/21/2015 15:08 EDT 04/21/2015 17:46 EDT Allen Thompson PA-C CHEMISTRY & BLOOD GAS ORDERABLES [facility] [address] [place] [address] documented in this encounter Visit Diagnoses Diagnosis Morbid obesity with BMI of 45.0-49.9, adult ([facility])- Primary Morbid obesity documented in this encounter Care Teams Canceling Machine Operator Relationship Specialty Start Date End Date Juma Herrera MD [address] [place] [address] PCP - General 09/25/12 12/07/18 documented as of this encounter
--- OUTSIDE RECORDS SUMMARY | 2024-04-22 23:51 | XMS_ITS | Encounter Summary ---
Author Organization [facility] Address [address] [place] [address] Care Team Providers Care Automatic Chief Name Role Phone Juma Herrera MD Primary Care Provider [phone] Reason for Visit * Reason Comments Obesity #2 Encounter Details Date Type Department Care Team (Late st Contact Info) Description 04/21/2015 14:00 EDT Office Visit [facility] Bariatric Surgery [address] [id number] Allen Thompson, PA-C [address] [place] [address], [address] [place] [address] Morbid obesity with BMI of 45.0-49.9, adult [...] Progress Notes * Allen Thompson PA - 04/21/2015 1534 EDT Juma Herrera [address] [place] [id number] Herrera : Thank you for referring your patient, Tia Spain, for evaluation and consideration of laparoscopic sleeve gastrectomy surgery. Ms. Spain met with Dr. Ugarte for his initial consultation on 12/03/14. She denies any changes in her medical history or medications since her previous visit. Ms. Spainis a 39 y.o. female with adult-onset obesity. Her comorbidities include depression and GERD. Review of Systems Constitutional: No fevers, chills. HEENT: No upper respiratory infection symptoms Cardiovascular: No chest pain, no shortness of breath, able to walk up a flight of stairs with no dyspnea or pain. Respiratory: No wheezing, +snoring, does not wake up gasping, does not wake up refreshed (sleeps poorly) Moro scale = 5 Renal: No dysuria or difficulty starting stream of urine GI: No nausea or vomiting, no diarrhea or constipation Endocrine: No polyuria or polydipsia Hematology: No excessive bruising or bleeding, no history of DVT Eyes: No acute changes Neurology: No slurred speech, +migraines on propranolol - can be so severe she gets right facial and shoulder paralysis, has peripheral neuropathy in right greater [...] mg per tablet, Take 1 Tab by mouthevery 6 hours as needed for Pain., Disp: 60 Each, Rfl: 0; LORazepam (ATIVAN) 0.5 mg tablet, Take 0.5 mg by mouth at bedtime, Disp: , Rfl: methylphenidate [...] mouth every 6 hours as needed for Nausea.,Disp: 10 Tab, Rfl: 2; PROPRANOLOL HCL (PROPRANOLOL ORAL), Take 120 mg by mouth daily , Disp: , Rfl:; rizatriptan (MAXALT) 10 mg tablet, Take 10 [...] per week. Tia met with our program station baggage agent for 30 minutes to review preoperative dietary recommendations. She has lost almost 40 pounds since starting in our program and she understands she has made her weight loss goal for surgery. I did consult our station baggage agent following her visit with the patient and agree with her findings and recommendations. On physical examination [...] and lower extremities, patellar reflex 2+ bilaterally mammo negative 05/16 PAP negative [...] for surgery. Sincerely Yours, MARGARITA Gomez CC: * Lux Dumont Ana Luisa - 04/21/2015 1427 EDT Medical Nutrition Evaluation-PRE OP NOTE Bariatric Clinic Nutrition Pre-op Visit Visit Number: 4 Desired surgery: Gastric Sleeve Subjective: Its very hard to keep the food logs, exercise and lose weight. I have not been eating breakfast because it has been too hot. I am trying to drink [employer] milk but I know it is low in protein Food logs: [employer] Meal pattern: keeping food logs inconsistently Average [...] [facility] Neurology - [address] [place], [place] [address] Kj Gloria MD PhD 1 [facility] [address] [place] [phone] 04/30/2024 9:30 EDT Office Visit [facility] Interventional Pain [address] [place], [place] [phone] Catalino Garrett MD [address] [facility] [address] [place] [phone] 09/18/2024 11:00 EST Office Visit [facility] Bariatric Surgery [facility] [address] [place], [place] [address] Allen Thompson PA-C 111 [facility], [facility], [address] [place] [phone] documented as of this encounter Results * TSH (04/21/2015 15:08 EDT) TSH 0.51 0.35 - 5.00 uIU/ml 04/21/2015 20:25 EDT [facility] Blood specimen (specimen) BLOOD SPECIMEN / Unknown 04/21/2015 15:08 EDT 04/21/2015 17:46 EDT Allen Thompson PA-C CHEMISTRY & BLOOD GAS ORDERABLES Performing Organization Address [facility] Co de Phone Number [facility] [address] [place] [address] * (ABNORMAL) VITAMIN D (25,OH) (04/21/2015 15:08 EDT) 25OH Vitamin D Tot 26.6(L) 30 - 100 ng/ml 04/22/2015 13:39 EDT [facility] Comment: Reference Range: Deficient = <10 ng/ml Insufficient = 10-30 ng/ml Sufficient = 30-100 ng/ml Toxic = >100 ng/ml Blood specimen (specimen) BLOOD SPECIMEN / Unknown 04/21/2015 15:08 EDT 04/21/2015 17:46 EDT Allen Trinh LopezLyst-C CHEMISTRY & BLOOD GAS ORDERABLES Performing Organization Address [facility] de Phone Number [facility] [address] [place] [address] * (ABNORMAL) HEPATIC FUNCTION PANEL (ALB,ALK PHOS,ALT,AST,DBIL,TOT GILBERTO,TOT PROT) (04/21/2015 15:08 EDT) Pathologist [facility] Albumin 3.8 3.4 - 4.9 g/dl 04/21/2015 19:18 [facility] Total Protein 6.4 6.3 - 8.2 g/dl 04/21/2015 19:18 [facility] Total Alkaline Phosphatase 56 38 - 126 U/L 04/21/2015 19:18 [facility] ALT 21 <53 U/L 04/21/2015 19:18 [facility] AST 14(L) 15 - 46 U/L 04/21/2015 19:18 [facility] Unconjugated Bilirubin 0.0 0.0 - 1.1 mg/dl 04/21/2015 19:18 [facility] Conjugated Bilirubin 0.0 0.0 - 0.3 mg/dl 04/21/2015 19:18 [facility] Bilirubin, Total <0.5 <1.4 mg/dl 04/21/20 15 19:18 EDT [facility] Blood specimen (specimen) BLOOD SPECIMEN / Unknown 04/21/2015 15:08 EDT 04/21/2015 17:46 EDT Allen Bennett-MineWhatsy PA-C CHEMISTRY & BLOOD GAS ORDERABLES Performing Organization Address [facility] de Phone Number [facility] [address] [place] [address] * HEMOGLOBIN A1C (04/21/2015 15:08 EDT) Hemoglobin A1C 5.4 % 04/22/2015 10:28 EDT [facility] Comment: Reference Range: <5.7% Normal 5.7-6.4% Increased risk for diabetes =>6.5% Diagnostic for diabetes (if confirmed) The A1c goal for non adults in general is <7%. The A1c goal for selected patients may be significantly lower than 7% if this can be achieved without significant hypoglycemia or other adverse effects of treatment. Est Avg Glucose 108 mg/dl 5 10:28 EDT [facility] Comment: eAG represents the A1c result expressed as average glucose in mg/dl. Blood specimen (specimen) BLOOD SPECIMEN / Unknown 04/21/2015 15:08 EDT 04/21/2015 17:46 EDT Allen Bennett-Dakotasy PA-C CHEMISTRY & BLOOD GAS ORDERABLES Performing Organization Address City/[facility] Co de Phone Number [facility] [address] [place] [address] * FERRITIN (04/21/2015 15:08 EDT) Ferritin 32 10 - 291 ng/mL 04/21/2015 20:17 EDT [facility] Blood specimen (specimen) BLOOD SPECIMEN / Unknown 04/21/2015 15:08 EDT 04/21/2015 17:46 EDT Allen MarroquinerNadersy PA-C CHEMISTRY & BLOOD GAS ORDERABLES Performing Organization Address City/[facility]/ZIP Co de Phone Number [facility] [address] [place] [address] * CREATININE (04/21/2015 15:08 EDT) Creatinine 0.68 0.52 - 1.04 mg/dl 04/21/2015 19:18 EDT [facility] GFR, Calculated 109 >60 ml/min/1.7 3m2 04/21/2015 19:18 EDT [facility] Comment: eGFR calculated using CKD-EPI equation for non Americans. Multiply eGFR by 1.16 for Americans. Blood specimen (specimen) BLOOD SPECIMEN / Unknown 04/21/2015 15:08 EDT 04/21/2015 17:46 EDT Allen Kylesy PA-C CHEMISTRY & BLOOD GAS ORDERABLES Performing Organization Address [facility] Co de Phone Number [facility] [address] [place] [address] * (ABNORMAL) HEMAGRAM (04/21/2015 15:08 EDT) WBC 9.60 4.0 - 12.4 K/cmm 04/21/2015 18:04 [facility] RBC 4.81 3.86 - 5.04 M/cmm 04/21/2015 18:04 [facility] Hemoglobin 14.4 11.6 - 15.2 gm/dl 04/21/2015 18:04 [facility] HCT 42.9 34.9 - 44.4 % 04/21/2015 18:04 [facility] MCV 89 81 - 98 fl 04/21/2015 18:04 [facility] MCH 30.1 26.7 - 33.3 pg 04/21/2015 18:04 [facility] MCHC 33.7 32.1 - 35.9 gm/dl 04/21/2015 18:04 [facility] RDW-CV 14.6 11.7 - 14.6 % 04/21/2015 18:04 [facility] RDW-SD 45.5 37.6 - 50.3 fl 04/21/2015 18:04 EDT [facility] PLT 330(H) 141 - 320 K/cmm 04/21/2015 18:04 EDT [facility] MPV 8.9 7.5 - 11.2 fl 04/21/2015 18:04 EDT [facility] Blood specimen (specimen) BLOOD SPECIMEN / Unknown 04/21/2015 15:08 EDT 04/21/2015 17:46 EDT Allen Thompson PA-C HEMATOLOGY & PF4 ORDERABLES Performing Organization Address [facility] Co de Phone Number [facility] [address] [place] [address] * VITAMIN B12 (04/21/2015 15:08 EDT) Vitamin B-12 352 211 - 911 pg/ml 04/21/2015 20:17 EDT [facility] Blood specimen (specimen) BLOOD SPECIMEN / Unknown 04/21/2015 15:08 EDT 04/21/2015 17:46 EDT Allen Thompson PA-C CHEMISTRY & BLOOD GAS ORDERABLES Performing Organization Address City/[facility] Co de Phone Number [facility] [address] [place] [address] documented in this encounter Visit Diagnoses Diagnosis Morbid obesity with BMI of 45.0-49.9, adult ([facility])- Primary Morbid obesity documented in this encounter Historical Medications * This list may reflect changes made after this encounter. Medication Sig Dispensed Refills Start Date End Date LORazepam (ATIVAN) 0.5 mg tablet Take 0.5 mg by mouth at bedtime. 05/17/2022 added in this encounter Care Teams Automatic Chief Relationship Specialty Start Date End Date Juma Herrera MD [address] [facility] [place] [phone] PCP - General 09/25/12 12/07/18 documented as of this encounter
--- OUTSIDE RECORDS SUMMARY | 2024-04-22 23:51 | XMS_ITS | Encounter Summary ---
Author Organization [facility] Address [address] [place] [address] Care Team Providers Care Crew Supervisor Name Role Phone Juma Herrera MD Primary Care Provider [phone] Encounter Details Date Type Department Care Team (Late st Contact Info) Description 02/10/2015 10:29 EDT - 02/10/2015 12:30 EDT Hospital Encounter [facility] Endoscopy - [address] [phone] Cheng Lamar MD [address] [place] [address], [address] [place] [address] Discharge Disposition: Home or Self Care [...] Care documented in this encounter H&P Notes * Cheng Lamar MD - 02/10/2015 1152 EDT Endoscopy Sedation for Procedure History & Physical Date: 02/10/2015 Time: 11:52 Location: 4 Endo Planned Procedure: Gastroscopy Chief [...] 11:52 documented in this encounter Miscellaneous Notes * Anesthesia Post-Eval - Tracy Cox - 02/10/2015 [...] unless otherwise noted. Her pain, nausea and vomiting have been managed and her body temperature and fluid balance have been restored. Additional monitoring and assessment needs have been addressed. If present, any postoperative events are documented below. Tracy Cox MD 02/10/2015 14:34 documented in this encounter Plan of Treatment Upcoming Encounters Date Type Department Care Team (Late st Contact Info) Description 04/27/2024 14:30 EDT Telemedicine [facility] Neurology - [address] [address] Kj Gloria MD PhD 1 [facility], [address] [place] [phone] 04/30/2024 9:30 EDT Office Visit [facility] Interventional Pain [address] [place] [address] Catalino Garrett MD 62 [facility] [address] [place] [address] 09/18/2024 11:00 EST Office Visit [facility] Bariatric Surgery - [place] [address] [place], [place] [address] Allen Thompson PA-C [address] [place] [address], [address] [place] [address] documented as of this encounter Procedures Procedure Name Priority Date/Time Associated Diagnosis Comments PROCEDURE REPORTS - SCANNED 02/11/2015 0:36 EDT documented in this encounter Results * PROCEDURE REPORTS - SCANNED (02/11/2015 0:36 EDT) 02/11/2015 0:36 EDT Scan [facility] [employer] Manager PROCEDURE/MINOR LÓPEZ GICAL ORDERABLES documented in this encounter Visit Diagnoses Not on filedocumented in this encounter Administered Medications Inactive Administered Medications - up to 3 most recent administrations Medication Order MAR Action Action Date Dose Rate Site lactated ringers (LR) infusion 30 mL/hr, intravenous, CONTINUOUS, Starting on Karen 02/10/15 at 1115, Until Karen 02/10/15 at 1431, Routine, Preprocedure New Bag 02/10/2015 11:20 EDT 30 mL/hr 30 mL/hr documented in this encounter Discontinued Medications Medication Sig Discontinue Reason Start Date End Da te cholecalciferol, Vitamin D3, 1,000 unit tablet Take 1,000 Units by mouth 2 times daily. Patient Stopped Taking 02/03/2015 duloxetine (CYMBALTA) 60 mg capsule Take 60 mg by mouth daily. Take with 30mg cap to = 90mg dose Duplicate Therapy 02/03/2015 meloxicam (MOBIC) 7.5 mg tablet Take 1 Tab by mouth daily. Patient Stopped Taking 05/04/2014 02/03/2015 methylphenidate (RITALIN) 10 mg tablet Take 10 mg by mouth daily. Duplicate Therapy 02/03/2015 methylPREDNISolone (MEDROL DOSEPACK) 4 mg tablet follow package directions Therapy completed 09/10/2013 02/03/2015 [place]-3 Fatty Acids-Vitamin E (FISH OIL) 1,000 mg cap Take 1,000 mg by mouth 2 times daily. Patient Stopped Taking 02/03/2015 topiramate (TOPAMAX) 100 mg tablet Take 200 mg by mouth 2 times daily. Discontinued by another clinician 02/03/2015 documented as of this encounter Active and Recently Administered Medications Times are shown in EDT. Continuous Medication Order 02/08/2015 02/09/2015 02/10/2015 lactated ringers (LR) infusion (CANCELED) 30 mL/hr, intravenous, CONTINUOUS, Starting on Karen 02/10/15 at 1115, Until Karen 02/10/15 at 1431, Routine, Preprocedure 1120 (New Bag - Prov ider: Kari Amos RN)1222 (Completed - Provider: Zina Rosado RN) documented in this encounter Orders Medications Ordered That Jakob ht Not Have Been Administered Count Last Ordered Date First Ordered Date sodium chloride 0.9 % (NS) infusion 1 02/10 Transfer Count Last Ordered Date First Orde red Date NOTIFY PPS OF DISCHARGE COMPLETE 1 02/11/20 15 documented in this encounter Care Teams Crew Supervisor Relationship Specialty Start Date End Date Juma Herrera MD [address] [facility] [place] [phone] PCP - General 09/25/12 12/07/18 documented as of this encounter
--- OUTSIDE RECORDS SUMMARY | 2024-04-22 23:51 | XMS_ITS | Encounter Summary ---
Author Organization [facility] Address [address] [place] [address] Care Team Providers Care Corporate Account Executive Name Role Phone Juma Herrera MD Primary Care Provider [phone] Reason for Visit * Reason Comments Obesity Class Encounter Details Date Type Department Care Team (Late st Contact Info) Description 05/16/2015 10:30 EDT Office Visit [facility] Bariatric Surgery [facility] [address] [place], [place] [phone] Yamilka Oneal, PhD [address] [place] [phone] Unspecified episodic mood disorder (Primary Dx) Social History Tobacco Use Types [...] documented in this encounter Progress Notes * Yamilka Oneal, PhD - 05/16/2015 1417 EDT Behavioral Skills Group Progress Note Name: Tia Spain : 1975 Procedure: 1.5 hour Psychoeducational Group S: The focus of this session was on introducing the behavioral skills necessary for weight loss andweight loss maintenance after surgery. Educational information was [...] Contact Info) Description 04/27/2024 14:30 EDT Telemedicine [facility] Neurology - [address] [place], [place] [address] Kj Gloria MD PhD 1 [facility] 2 [place] [phone] 04/30/2024 9:30 EDT Office Visit [facility] Interventional Pain [address] [place] [address] Catalino Garrett MD 62 [facility] [address] [place] [address] 09/18/2024 11:00 EST Office Visit [facility] Bariatric Surgery - [place] [address] [place] [address] Allen Thompson, PA-C 111 [facility], [address] [place] [phone] documented as of this encounter Visit Diagnoses Diagnosis Unspecified episodic mood disorder- Primary documented in this encounter Care Teams Corporate Account Executive Relationship Specialty Start Date End Date Juma Herrera MD [address] [facility] [place] [phone] PCP - General 09/25/12 12/07/18 documented as of this encounter
--- OUTSIDE RECORDS SUMMARY | 2024-04-22 23:51 | XMS_ITS | Encounter Summary ---
Author Organization [facility] Address [address] [place] [address] Care Team Providers Care Director Investor Relations Name Role Phone Alejandra Trevino MD Primary Care Provider Encounter Details Date Type Department Care Team (Late Contact Info) Description 05/10/2014 Results Only [facility] Laboratory Services - [facility] ([facility] [address] [place] [address] Dariela Stiles MD [address] [place] [address] [place] [address] Social History Tobacco Use Types Packs/Day Years [...] 14:30 EDT Telemedicine [facility] Neurology - [address] [phone] Kj Gloria MD PhD 1 [facility] 2 [place] [phone] 04/30/2024 9:30 EDT Office Visit [facility] Interventional Pain [address] [place] [address] Catalino Garrett MD [address] [place] [address] 09/18/2024 11:00 EST Office Visit [facility] Bariatric Surgery - [place] [address] [place] [address] Allen Thompson PA-C 111 [facility] 5 [place] [address] documented as of this encounter Procedures Procedure Name Priority Date/Time Associated Diagnosis Comments SURGICAL PATHOLOGY Routine 05/10/2014 9:28 EDT documented in this encounter Results * SURGICAL PATHOLOGY (05/10/2014 9:28 EDT) Pathology Report: SURGICAL PATHOLOGY REPORT Reports generated via electronic interface contain original data; however they are lacking the format of the original report. Caution should be taken when reading/interpreti ng unformatted reports. Name: ? TIA HITCHCOCK ? Accession #: ? [id number] ? : ? 1975 (Age: 38) ??F ? Collect Date: ? 05/10/2014 ? Location: ? [facility] ? Receive Date: ? 05/11/2014 ? Provider: DARIELA STILES MD Copy to: [...] or confirmed the above diagnosis. Specimen(s) Received: Endometrial bx Clinical History: Menorrhagia, LMP: 04/16/14, control BTL Gross Description: ? Received in formalin labelled with proper patient identification (initials C, S) and endometrial biopsy is an aggregate of blood-tinged mucus and red-brown tissue (2.5 x 2.0 x 1.0 cm). Submitted in toto in blocks 1-2. Abeba Mcginnis 05/11/2014 10:57 AM End of Report [facility] 05/10/2014 9:28 EDT 05/11/2014 9:28 EDT Dariela Stiles MD PATHOLOGY ORDERABLES Performing Organization Address City/State/[facility] Co de Phone Number [facility] [address] [place] [address] documented in this encounter Visit Diagnoses Not on filedocumented in this encounter Care Teams Director Investor Relations Relationship Specialty Start Date End Date Alejandra Trevino MD [address] [facility] [place] [phone] PCP - General 09/25/12 12/07/18 documented as of this encounter
--- OUTSIDE RECORDS SUMMARY | 2024-04-22 23:51 | XMS_ITS | Encounter Summary ---
Author Organization [facility] Address [address] [place] [address] Care Team Providers Care Orthopedic Rn Name Role Phone Alejandra Trevino MD Primary Care Provider [phone] Reason for Referral * (Routine) - Closed Specialty Diagnoses / Procedures Referred By Contac t Referred To Contact Allen Thompson PA-C [address] [place] [phone] Referral ID Status Reason Start Date Expiration Date V isits Requested Visits Authorized [id number] Closed Specialty Services Required 09/07/2015 1 1 Comments Follow up with Master Potts MD in 1 week for staple and drain removal. Please call [phone]. * (Routine) - Closed Specialty Diagnoses / Procedures Referred By Contac t Referred To Contact Allen Thompson PA-C [address] [place] [phone] Referral ID Status Reason Start Date Expiration Date V isits Requested Visits Authorized [id number] Closed Specialty Services Required 09/07/2015 1 1 Comments Fever greater than 100.4 or chills Inability to swallow or increasing difficulty swallowing Increased or new pain Nausea or vomiting Pain unrelieved by medication Shortness of breath or rapid breathing Signs of infection such as pain, redness, swelling or drainage at procedure or wound site Swelling in your legs * (Routine) - Closed Specialty Diagnoses / Procedures Referred By Wili mireles Referred To Contact Allen Thompson PA-C [address] [facility], [facility] [address] [place] [address] Referral ID Status Reason Start Date Expiration Date V isits Requested Visits Authorized [id number] Closed Specialty Services Required 09/07/2015 1 1 Comments We are currently collecting quality data on patients having surgery. You may receive a phone call, email, and/or letter about your surgery asking you a series of follow up questions to evaluate specifics aspects of your care. Thank you for your participation. Encounter Details Date Type Department Care Team (Latest Contact Info) Description 09/05/2015 5:35 EST - 09/07/2015 12:[address] [facility] General Surgery Unit [address] [place] [address] Master Potts MD [address] [place] [phone] Preop examination (Primary Dx); Morbid obesity with BMI of 40.0-44.9, adult (CMS-HCC) ([facility]); Depression; GERD without esophagitis Discharge Disposition: Home or Self Care Social [...] Time Taken Comments Blood Pressure 110/57 09/07/2015 0919 EST Pulse - - Temperature 37.4 ??C [...] 09/05/2015 documented as of this encounter Discharge Summaries * Allen Thompson PA - 09/05/2015 1239 EST [...] sleeve gastrectomy was performed. A 19 fr blakedrain was placed along the staple line. She [...] 09/06/2015 CO2 28 09/06/2015 Discharge Summary Completed: 09/07/15 documented in this encounter Medications at Time [...] needed 12/18/2021 documented as of this encounter Ordered Prescriptions Prescription Sig Dispensed Refills Start Date End Da te pediatric multivitamin (JUAN CHEW VIT) chewable tablet Take 1 Tab by mouth daily Hold for 2 weeks 09/07/2015 05/17/2022 oxyCODONE (ROXICODONE) 5 mg/5 mL solution Take 5-10 mL by mouth every 4 hours as needed for Pain Daily Max: 60 mg 700 mL 0 09/07/2015 09/28/2016 oxyCODONE (ROXICODONE) 5 mg immediate release tablet Take 2 Tabs by mouth every 4 hours Hold for now while taking liquid form Daily Max: 60 mg 09/07/2015 05/17/2022 acetaminophen (TYLENOL) 650 mg/20.3 mL solution Take 20.3 mL by mouth every 4 hours 09/07/2015 09/27/2017 documented in this encounter Discharge Disposition Disposition Code Departure Means Destination Home or Self Care documented in this encounter Progress Notes * Mary Feldman - 09/07/2015 1431 EST CM DC Note Pt discharged home to self care Ivelisse Feldman RN CM [id number] * Raymundo Rahman MD - 09/07/2015 0728 EST Surgery Daily Progress Note Patient: Tia Hitchcock Admit Date: 09/05/2015 Date of Service: 09/07/2015 POD: 1 (09/05/2015) Procedure: Laparoscopic Sleeve Gastrectomy CC: Morbid Obesity 24 Hour Events: ?? IV Benadryl for itching ?? Drain: 35cc SS output Subjective: Pain well controlled overnight. +Appetite. Continues to feel itchy on face and legs. Denies nausea,distention, fevers, chills, CP/shoulder pain, SOB. All positive [...] bilious Intake/Output Summary (Last 24 hours) at 09/07/15 0728 Last data filed at 09/07/15 0535 Gross [...] of morbid obesity now POD#2 s/p laparoscopic sleevegastrectomy. Drain nonbilious. UOP adequate (0.5cc/kg/h) Plan: ?? Post gastrectomy diet: advance per pathway. CLD today. ?? D/c OFFICE SUPPORT. PO pain meds today. ?? Ambulate TID ?? Aggressive IS ?? Monitor and record drain output -Drain teaching for patient, will go home with ?? Likely discharge today DVT Prophylaxis: Ambulate, SCD's, SQ Heparin TID Raymundo Rahman MD 09/07/2015 7:28 Pager #[phone] * Mary Feldman - 09/06/2015 9829 EST Initial Case Management/Social Work Assessment and Discharge Plan/Readmission Risk Assessment Reason for Admission: Lap sleeve gastrectomy Patient Contact Information: sister Brock LIVING ARRANGEMENTS AND ACCESSIBILITY ISSUES: Lives in home in [facility] What in home social supports are available to the patient? family/friends ADVANCED DIRECTIVES, POA &/or COLST IN PLACE: Yes LW; DPOA CULTURAL, BUDDHIST and/or LANGUAGE factors affecting health care/discharge planning: [...] for those at HIGH MODERATE RISK: Bring risk factors to attention of team to be addressed [...] services: No DME Provider: No Pharmacy: [facility] - has already filled dc medications except as per above Other: Family will assist with dc transportation POST HOSPITAL TRANSITION PLAN: DC home to self care when medically ready Ivelisse Feldman RN CM [phone] * Cara Blanc, PSYCHOLOGIST RESEARCH ASSISTANT - 09/06/2015 0742 EST Surgery Daily Progress Note Patient: Tia Hitchcock Admit Date: 09/05/2015 Date of Service: 09/06/2015 POD: 1 (09/05/2015) Procedure: Laparoscopic Sleeve Gastrectomy CC: Morbid Obesity 24 Hour Events: ?? OR --> B6 ?? IV Benadryl for itching ?? Drain: 25cc SS output Subjective: Doing well this morning with adequate pain management. Reports wanting her study done early becauseshe is very thirsty. Continues to feel itchy [...] Type - 3 Shifts Including Current In: 2085.3 [I.V.:1985.3; IV Piggyback:100] Out: 430 [Urine:425; Drains:5] Central Line Present: No Telemetry: No Imaging: UGI pending Assessment: Active Hospital Problems Diagnosis ??? *Morbid obesity with BMI of 45.0-49.9, adult Tiapoppy Hitchcock is a 40 y.o. female with history of morbid obesity now POD#1 s/p laparoscopic sleevegastrectomy. Appropriate postoperative progression with borderline urine output, [...] TID Cara Blanc NP 09/06/2015 7:42 Pager #[phone] * Olivia Murphy MD - 09/05/2015 6293 EST Surgery Post Op Check Admit Date: 09/05/2015 Hospital Day: LOS: 0 days Date of Service: 09/05/2015 Procedure: lap sleeve gastrectomy Complications: none Subjective/ROS: Pain controlled with OFFICE SUPPORT. Feels sore. Had some nausea but resolved, [...] epigastric area, non distended, serosanguinous output in JPdrain, incisions dressed with no strikethrough, +BS Assessment: Ms. Hitchcock is a 40 year old female who is POD0 s/p a lap sleeve gastrectomy. She is recovering well on the floor on pathway. Plan: Pain control with OFFICE SUPPORT NPO Upper GI tomorrow- advance diet as appropriate Mi out tomorrow Post-sleeve Pathway Olivia Murphy MD 09/05/2015 17:54 Surgery, PGY1 p1940 * Mahogany Deleon RN - 09/05/2015 1042 EST 1040: Pt appears to be resting quietly, in no distress, VSS. Yet pt reports pain 9/10, some ongoingnausea. Pt encouraged to use dilaudid OFFICE SUPPORT.Surgical sites CDI, RUQ MELANIE draining sm amt serosanguinous, mi draining CYU. * Raysa Acuña RN - 08/15/2015 0916 EST Tia Hitchcock has been instructed as follows regarding medication administration for the day of the scheduled procedure. Date of Surgery: 09/05/14 Instructions for [...] every 6 hours as needed for Nausea. If needed PROPRANOLOL HCL (PROPRANOLOL ORAL) Take 120 mg by mouth daily yes sandrinetriptan (MAXALT) 10 mg tablet Take 10 mg by mouth once as needed. May repeat in 2 hours if needed If needed documented in this encounter H&P Notes * Allen Thompson PA - 09/05/2015 0723 EST [...] as needed for Nausea 60 Tab 0 not yet ??? PROPRANOLOL HCL [...] hrs: BP Resp Temp SpO2 O2 Device 09/05/1522 104/58 mmHg 16 36.6 ??C (97.9 ??F) [...] and lower extremities, patellar reflex 2+ bilaterally Assessment There are no hospital problems to display for this patient. preop fo lp sleeve gastrectomy. OK for surgery. Problems/Plan: (update problem list daily as appropriate) To OR for above MARGARITA Gomez 09/05/2015 7:23 documented in this encounter OR Notes * OR Surgeon - Master Potts MD - 09/19/2015 0802 EST OPERATIVE REPORT SERVICE DATE: 09/05/2015 PREOPERATIVE DIAGNOSIS: Morbid obesity. POSTOPERATIVE DIAGNOSIS: Morbid obesity. PROCEDURE: Laparoscopic sleeve gastrectomy using a 44-Khmer bougie. SURGEON: Master Potts MD STAFF FIELD ENGINEER: Laura Hull MD, FACS; no qualified resident to lens assistant in the case. ANESTHESIA: INDICATIONS: Morbidly obese 40-year-old who failed multiple dietary attempts in the past and elected to have laparoscopic sleeve gastrectomy. NARRATIVE: The patient was consented, wheeled into the operating room, placed in the supine position, and underwent ET tube intubation and general anesthesia. The patient was strapped to the table. Afoot board was placed and secured. Both arms [...] medical record number and date of . Planfor the procedure was confirmed, consent form was [...] a 5 mm subxiphoid for a laparoscopic liverretractor, an additional right upper quadrant 12 mm [...] liver retractor was then placed through the 5mm subxiphoid trocar. The left lateral segment of the liver was elevated out of the way to expose the GE junction and the gastric fundus. The retractor was then fastened to the table. Anesthesia was asked to remove the OG tube, as well as any esophageal probe after complete decompression and suctioning of the stomach. With the trocars in proper position, the fundus of the stomach was grasped and retracted caudally exposing the gastrophrenic ligament. No hiatal hernia was identified. Pyloric channel was identified and approximately 6 cm proximal to it the short gastric vessels of the greater cu rvature were taken down all the way up to the GE junction with a Harmonic scalpel. A 44-Khmer bougie was passed transorally under direct vision into the stomach until it reached the proximal pyloricchannel. Prior to gastric division, both the right [...] of the yfn on the inferior staple line. The staple line was meticulously inspected and was found to be intact with good hemostasis. The bougie was removed without difficulty. The left upper quadrant was irrigated with warm normal saline above the spleen and suctioned. No bleeding points were identified. The liver retractor was removed under direct visualization. After placing the specimen in an Endocatch bag, thearea was irrigated again. A 19-Khmer Chaz drain was placed in the subhepatic area near the stapleline at the conclusion of the procedure to identify any postoperative bleeding or leak and this wassutured in to the skin with a 2-0 nylon suture. The specimen was then removed from the 15 mm trocarsite. This was enlarged. The fascia had been enlarged and once the specimen was out we closed this with a #1 Vicryl using the rachael Lindsay closure device. The wound was then copiously irrigated with normal saline and hemostasis was achieved. The other trocar sites were closed with skin yfn. We applied Telfa and Tegaderm. We sutured the drain in with a 3-0 nylon suture. The patient tolerated the procedure well. All needles, instruments and lap pads were accounted for. I [...] AM / Master Potts MD jn Confirmation: [id number] Dictation ID: [id number] documented in this encounter Miscellaneous Notes * Plan of Care - Belkis Braun RN [...] clear urine. Pt states she is ready for discharge home. Action: Pt cleared for discharge home. IV removed, drain teaching completed with return demo of skills. Pt and family deny need for further education or instructions at this time. Response: Pt discharged home with family via wc to car. Belkis Braun RN 09/07/2015 11:42 * Plan of Care - Hortencia Franz RN - 09/07/2015 0202 EST Problem: Daily Care Plan Goals Goal: Care Plan Documentation Outcome: Ongoing 09/06/15 1911 Care Plan Focus Area of Focus Communication Goal This Shift Communication between pt and nursing staff Data: POD#2 s/p lap sleeve. No reports of flatus. Pt states pain is controlled with Dilaudid OFFICE SUPPORT. Pt has lots of anxiety related to care. Action: Encouraged ambulation overnight. Pt continues to use OFFICE SUPPORT button. Provided emotional supportand answered questions. Response: Pt sleeping throughout night. Will monitor Hortencia Franz RN 09/07/2015 1:42 * Plan of Care - Valente Hernandez - 09/06/2015 1329 EST Problem: Daily Care Plan Goals Goal: Care Plan Documentation Data: Patient rating pain at a 7/10 upon assumption of care. NPO. IVF and Dilaudid OFFICE SUPPORT infusing. Mi removed. DTV at 1245. Action: Patient off the unit to upper GI. No leaks shown, diet advanced to 60cc/hour. Pain tolerable with the dilaudid OFFICE SUPPORT. Encouraged patient to get OOB and ambulate. +voiding. Response: Currently in bed, rating pain at a 7/10. Visiting with friends at bedside. Will continue to monitor. Valente Hernandez RN 09/06/2015 13:25 * Anesthesia Post-Eval - Alejandra Sanderson CRNA - 09/06/2015 1131 [...] Events: None Alejandra Sanderson CRNA 09/06/2015 11:31 * Plan of Care - Vanesa Fonseca RN - 09/06/2015 0507 EST Problem: Daily Care Plan Goals Goal: Care Plan Documentation Outcome: Ongoing 09/05/15 2305 Care Plan Focus Area of Focus Pain/ Comfort Goal This Shift pts pain will be managed overnight Data: Pt rating pain 6-9/10 in abdomen. Action: Monitored/encouraged dilaudid OFFICE SUPPORT usage. Assisted pt oob to ambulate in hallways. Medicatedwith scheduled toradol per OCT. Response: Pt now rating pain 6/10 minimal sleep overnight which patient reports is her norm. Will continue to monitor/medicate for pain as needed. Vanesa Fonseca RN 09/06/2015 5:36 * Plan of Care - Valente Hernandez - 09/05/2015 1856 EST Problem: Daily Care Plan Goals Goal: Care Plan Documentation Data: Assumed care at 1500, patient in bed rating pain at a 9.5/10. IVF and Dilaudid OFFICE SUPPORT infusing. Strict NPO. Mi catheter in place draining clear yellow urine. Requesting to get some candy or icechips. Action: Cleared OFFICE SUPPORT Q2 hours. Instructed to patient the importance of not taking in anything by mouth. Assisted to reposition for comfort. Encouraged patient to get OOB and ambulate but patient refused currently. Response: In bed, rating pain at a 9/10 visiting with friends at bedside. Will continue to assess patient and perform interventions as needed. Valente Hernandez RN 09/05/2015 18:52 * Plan of Care - Yola Jarvis - 09/05/2015 1524 EST Problem: Daily Care Plan Goals Goal: Care Plan Documentation Outcome: Ongoing 09/05/15 1321 Care Plan Focus Area of Focus Pain/ Comfort Goal This Shift pt will be comfortable Data: Pt arrived on unit at noon. Rates pain 9/10 OFFICE SUPPORT dilaudid used multiple times. Oriented to unit.C/o itching Action: Toradol, 0.4 IV dilaudid breakthrough, given for pain. Benadryl given for itch. Response: Pt resting in bed with back gas meter reader. Family at bedside. Reports pain better. Will monitor Yola Jarvis RN 09/05/2015 15:21 * Anesthesia Post-Audi - Marques Arellano MD - 09/05/2015 1138 [...] intended to last greater than 48 hours, Tia Hitchcock will be followed by the Acute Pain Service. Marques Arellano MD 09/05/2015 11:38 * Brief Op Note - Allen Thompson PA - [...] Info) Description 04/27/2024 14:[address] [facility] Neurology - [address] [place], [place] [id number] Kj Gloria MD PhD [address] [facility], [address] [place] [phone] 04/30/2024 9:30 EDT Office Visit [facility] Interventional Pain [address] [place] [address] Catalino Garrett MD [address] [facility] [address] [facility] [address] [facility] [address] [place] [address] 09/18/2024 11:[address] [facility] Bariatric Surgery [facility] [address] [place], [place] [phone] Allen Thompson PA-C [address] [place] [address], [address] [place] [phone] Scheduled Referrals Name Type Priority Associated Diagnoses Order Schedule PROVIDER FOLLOW-UP INSTRUCTIONS Outpatient Referral Routine Ordered: 09/07/2015 PROVIDER FOLLOW-UP INSTRUCTIONS Outpatient Referral Routine Ordered: 09/07/2015 PROVIDER FOLLOW-UP INSTRUCTIONS Outpatient Referral Routine Ordered: 09/07/2015 documented as of this encounter Procedures Procedure Name Priority Date/Time Associated Diagnosis Comments ECG REPORT - SCANNED 09/12/2015 10:16 EST FL UGI WO AIR WO KUB Routine 09/06/2015 10:24 EST COMPLETE BLOOD COUNT Routine 09/06/2015 5:41 EST BUN Routine 09/06/2015 5:41 EST MAGNESIUM Routine 09/06/2015 5:41 EST CREATININE Routine 09/06/2015 5:41 EST ELECTROLYTES Routine 09/06/2015 5:41 EST SURGICAL PATHOLOGY Routine 09/05/2015 13 :49 EST TEST, URINE STAT 09/05/2015 5:54 EST Preop examination Morbid obesity with BMI of 40.0-44.9, adult ([facility]-HCC) (HCC-CMS) Depression GERD without esophagitis TYPE AND SCREEN STAT 09/05/2015 5:54 EST Preop examination Morbid obesity with BMI of 40.0-44.9, adult (CMS-HCC) (HCC-CMS) Depression GERD without esophagitis ECG REPORT - SCANNED 08/30/2015 8:38 EST documented in this encounter Results * ECG REPORT - SCANNED (09/12/2015 10:16 EST) 09/12/2015 10:1 6 EST Scan 2 Fire Prevention Specialist PROCEDURE/MINOR LÓPEZ GICAL ORDERABLES * FL UGI WO AIR WO KUB (09/06/2015 10:24 EST) Anatomical Region Laterality Modality Other 09/06/2015 10:2 4 EST 09/06/2015 12:16 EST Narrative 09/06/2015 12:16 EST FL UGI WO AIR WO KUB ??09/06/2015 10:24 AM Signs and Symptoms/Comments: ??Morbid Obesity S/P Lap Gastric Sleeve Comparison: Esophagram from 01/18/15 Technique and Findings: PA radiograph of the region of the stomach was obtained. Following this, the patient drank water-soluble contrast while in multiple positions including PA, VILLALTA, SINHALA, and left lateral position. Following this, the patient drank thin barium while in multiple positions including PA, VILLALTA, SINHALA, and left lateral position. A final radiograph was obtained in the PA position of the stomach and duodenum. Study shows normal postoperative appearance of the stomach status post gastric sleeve procedure. There is no evidence of contrast leakage from the stomach. Normal transit of contrast is seen into the duodenum. Surgical yfn are seen along the anterior abdomen. Impression: Normal postoperative appearance status post gastric sleeve procedure, with no evidence of leak on this examination. I have personally reviewed the images and the above interpretation and agree with the findings. Procedure Note Ajith Hassan MD - 09/06/2015 FL UGI WO AIR WO KUB 09/06/2015 10:24 AM Signs and Symptoms/Comments: Morbid Obesity S/P Lap Gastric Sleeve Comparison: Esophagram from 01/18/15 Technique and Findings: PA radiograph of the region of the stomach was obtained. Following this, the patient drank water-soluble contrast while in multiple positions including PA, VILLALTA, SINHALA, and left lateral position. Following this, the patient drank thin barium while in multiple positions including PA, VILLALTA, SINHALA, and left lateral position. A final radiograph was obtained in the PA position of the stomach and duodenum. Study shows normal postoperative appearance of the stomach status post gastric sleeve procedure. There is no evidence of contrast leakage from the stomach. Normal transit of contrast is seen into the duodenum. Surgical yfn are seen along the anterior abdomen. Impression: Normal postoperative appearance status post gastric sleeve procedure, with no evidence of leak on this examination. I have personally reviewed the images and the above interpretation and agree with the findings. Allen Thompson PA-C IMG FLUOROSC OPY ORDERABLES * MAGNESIUM (09/06/2015 5:41 EST) Magnesium 2.0 1.7 - 2.8 mg/dl 09/06/2015 6:34 EST [facility] Blood specimen (specimen) BLOOD SPECIMEN / Unknown 09/06/2015 5:41 EST 09/06/2015 5:56 EST Allen Thompson PA-C CHEMISTRY & BLOOD GAS ORDERABLES [facility] [address] [place] [address] * (ABNORMAL) HEMAGRAM (09/06/2015 5:41 EST) WBC 16.73(H) 4.0 - 12.4 K/cmm 09/06/2015 6:11 [facility] RBC 4.18 3.86 - 5.04 M/cmm 09/06/2015 6:11 [facility] Hemoglobin 12.4 11.6 - 15.2 gm/dl 09/06/2015 6:11 [facility] HCT 37.6 34.9 - 44.4 % 09/06/2015 6:11 [facility] MCV 90 81 - 98 fl 09/06/2015 6:11 [facility] MCH 29.7 26.7 - 33.3 pg 09/06/2015 6:11 [facility] MCHC 33.1 32.1 - 35.9 gm/dl 09/06/2015 6:11 [facility] RDW-CV 13.7 11.7 - 14.6 % 09/06/2015 6:11 [facility] RDW-SD 43.3 37.6 - 50.3 fl 09/06/2015 6:11 [facility] PLT 278 141 - 320 K/cmm 09/06/2015 6:11 [facility] MPV 8.5 7.5 - 11.2 fl 09/06/2015 6:11 [facility] Blood specimen (specimen) BLOOD SPECIMEN / Unknown 09/06/2015 5:41 EST 09/06/2015 5:56 EST Allen Thompson PA-C HEMATOLOGY & PF4 ORDERABLES Performing Organization Address City/State/[facility] Co de Phone Number [facility] [address] [place] [address] * ELECTROLYTES (09/06/2015 5:41 EST) Sodium 140 136 - 145 mEq/L 09/06/2015 6:34 [facility] Potassium 4.2 3.5 - 5.0 mEq/L 09/06/2015 6:34 [facility] Chloride 104 96 - 110 mEq/L 09/06/2015 6:34 [facility] CO2 28 24 - 32 mEq/L 09/06/2015 6:34 [facility] Blood specimen (specimen) BLOOD SPECIMEN / Unknown 09/06/2015 5:41 EST 09/06/2015 5:56 EST Allen Ziggy Leivatter-Cressy PA-C CHEMISTRY & BLOOD GAS ORDERABLES Performing Organization Address City/[facility] Co de Phone Number [facility] [address] [place] [address] * CREATININE (09/06/2015 5:41 EST) Creatinine 0.67 0.52 - 1.04 mg/dl 09/06/2015 6:34 EST [facility] GFR, Calculated 109 >60 ml/min/1.7 3m2 09/06/2015 6:34 EST [facility] Comment: eGFR calculated using CKD-EPI equation for non Americans. Multiply eGFR by 1.16 for Americans. Blood specimen (specimen) BLOOD SPECIMEN / Unknown 09/06/2015 5:41 EST 09/06/2015 5:56 EST Allen Ziggy Calitter-Cressy PA-C CHEMISTRY & BLOOD GAS ORDERABLES Performing Organization Address [facility] Co de Phone Number [facility] [address] [place] [address] * BUN (09/06/2015 5:41 EST) BUN 13 10 - 26 mg/dl 09/06/2015 6:34 EST [facility] Blood specimen (specimen) BLOOD SPECIMEN / Unknown 09/06/2015 5:41 EST 09/06/2015 5:56 EST Allen Trinh Calitter-Cressy PA-C CHEMISTRY & BLOOD GAS ORDERABLES Performing Organization Address [facility] Co de Phone Number [facility] [address] [place] [address] * SURGICAL PATHOLOGY (09/05/2015 13:49 EST) Pathology Report: SURGICAL PATHOLOGY REPORT Reports generated via electronic interface contain original data; however they are lacking the format of the original report. Caution should be taken when reading/interpret ing unformatted reports. Name: ? TIA HITCHCOCK ? Accession #: ? [id number] ? : ? 1975 (Age: 40) ??F ? Collect Date: ? 09/05/2015 ? Location: ? B006 ? Receive Date: ? 09/05/2015 ? Provider: MASTER POTTS MD Copy to: ALEJANDRA TREVINO MD ? Final Pathologic Diagnosis: Stomach, sleeve gastrectomy: - ??Oxyntic gastric tissue with no significant abnormality. - ??No evidence of Helicobacter pylori on H&E. Document reviewed and electronically signed by: LYNN HERNANDEZ MD Report ??Date: 09/07/2015 12:20 By the signature above, the attending physician certifies that he/she has personally conducted a gross and/or microscopic examination of the described specimens and rendered or confirmed the above diagnosis. Specimen(s) Received: Portion of stomach Clinical History: Morbid obesity Gross Description: ? Received fresh labelled with proper patient identification (initials C, S) and portion of stomach is a portion of stomach (21.5 cm in length, ranging in diameter from 2.0 cm to 5.8 cm), received closed. ??The mucosa is ko-pink and focally hemorrhagic. ??The stomach wall ranges in thickness from 0.8 cm to 1.2 cm. ??The serosa is ko-pink and smooth. Four player services representative sections of the stomach are submitted as [address] Daly 09/05/2015 3:01 PM End of Report [facility] 09/05/2015 13:4 9 EST 09/05/2015 13:49 EST Master Potts MD PATHOLOGY OR DERABLES Performing Organization Address [facility] Co de Phone Number [facility] [address] [place] [address] * TYPE AND SCREEN (09/05/2015 5:54 EST) ABO A [facility] Rh Factor Positive [facility] Antibody Screen Negative [facility] Specimen Expires: 09/08/2015 @ 23:59 [facility] Blood specimen (specimen) 09/05/2015 5:54 EST [facility] T ESTS Performing Organization Address [facility] de Phone Number [facility] * TEST, URINE (09/05/2015 5:54 EST) Result- Test, Ur Neg Neg 09/05/2015 6:31 EST [facility] Comment: NOTE: False negative results may occur in women who are beyond 5-8 weeks gestation. Diagnosis of should be based on a correlation of test results with typical clinical signs and symptoms. Urine specimen (specimen) URINE / Unknown 09/05/2015 5:54 EST 09/05/2015 6:08 EST Allen [facility] URINALYSIS O RDERABLES Performing Organization Address [facility] Co de Phone Number [facility] [address] [place] [address] * ECG REPORT - SCANNED (08/30/2015 8:38 EST) 08/30/2015 8:38 EST Scan 2 Fire Prevention Specialist PROCEDURE/MINOR LÓPEZ GICAL ORDERABLES documented in this encounter Visit Diagnoses Diagnosis Morbid obesity with BMI of 45.0-49.9, adult ([facility])- Primary Morbid obesity Preop examination Preoperative examination, unspecified Morbid obesity with BMI of 40.0-44.9, adult ([facility]) Morbid obesity Depression Depressive disorder, not elsewhere classified GERD without esophagitis Esophageal reflux documented in this encounter Administered Medications Inactive Administered Medications - up to 3 most recent administrations Medication Order MAR Action Action Date Dose Rate Site acetaminophen (OFIRMEV) IV solution 1,000 mg 1,000 mg, intravenous, NOW [...] in ED, PACU or ICU? Yes, Routine Given 09/05/2015 10:11 EST 1,000 mg acetaminophen (TYLENOL) solution unit dose cup 650 mg 650 mg, oral, EVERY 4 HOURS, First dose on Sat09/07/15 at 0000, Until Discontinued, Routine, On Unit Given 09/07/2015 12:12 EST 650 mg Given 09/07/2015 8:08 EST 650 mg Given 09/07/2015 4:02 EST 650 mg ceFAZolin (ANCEF) 2 g in sodium chloride 0.9% 50 mL IVPB 2 g, intravenous, Administer over 30 Minutes, Once (Without Time Specified), 1 dose, Starting on Sat09/05/15 at 0949, Until Sat09/05/15 at 1108, Routine, Recovery (only) Given 09/05/2015 10:38 EST 2 g ceFAZolin (ANCEF) 2 g in sodium chloride 0.9% 50 mL IVPB 2 g, intravenous, Administer over 30 Minutes, EVERY 8 HOURS, 2 doses, First dose on Sat09/05/15 at 1600, Last dose on Sat09/06/15 at 0000, Routine, On Unit Given 09/06/2015 0:01 EST 2 g Given 09/05/2015 15:44 EST 2 g ceFAZolin (ANCEF) syringe 2 g 2 g, intravenous, Administer over 10 Minutes, PRE-OP ONCE, 1 dose, On Sat09/05/15 at 0645, Routine, Pre-Op DOS Rx Approved Given by Other 09/05/2015 8:00 EST 2 g dextrose 5 % and 0.45 % NaCl with KCl 20 mEq/L infusion 125 mL/hr, intravenous, CONTINUOUS, Starting on Sat09/05/15 at 1015, Until Sat09/07/15 at 0726, Routine, On Unit New Bag 09/07/2015 4:07 EST 125 mL/hr 125 mL/hr New Bag 09/06/2015 20:08 EST 125 mL/hr 125 mL/hr Rate Documented 09/06/2015 19:11 EST 125 mL/hr 125 mL/hr diphenhydrAMINE (BENADRYL) injection 12.5-25 mg 12.5-25 mg, intravenous, EVERY 6 HOURS PRN, Starting on Sat09/05/15 at 1225, Until Sat09/07/15 at 1423, Itching, Routine, On Unit Given 09/07/2015 5:49 EST 25 mg Given 09/06/2015 22:09 EST 25 mg Given 09/05/2015 21:36 EST 25 mg diphenhydrAMINE (BENADRYL) injection 6.25 mg 6.25 mg, intravenous, PRN, 2 doses, Starting on Sat09/05/15 at 0908, Until Sat09/05/15 at 1050, nausea, Routine, Recovery (only) Given 09/05/2015 10:50 EST 6.25 mg Given 09/05/2015 9:46 EST 6.25 mg fentaNYL citrate (PF) 50 mcg/mL injection 25-100 mcg 25-100 mcg, intravenous, EVERY 5 MIN PRN, Starting on Sat09/05/15 at 0908, Until Sat09/05/15 at 1206, Pain, Routine, Recovery (only) Given 09/05/2015 9:53 EST 50 mcg Given 09/05/2015 9:44 EST 50 mcg heparin injection 5,000 Units 5,000 Units, subcutaneous, PRE-OP ONCE, 1 dose, On Sat09/05/15 at 0645, Routine, Pre-Op DOS Rx Approved Given 09/05/2015 7:21 EST 5,000 Units heparin injection 5,000 Units 5,000 Units, subcutaneous, EVERY 8 HOURS, First dose on Sat09/05/15 at 1600, Until Discontinued, Routine, On Unit Given 09/07/2015 8:08 EST 5,000 Units Given 09/07/2015 0:04 EST 5,000 Units Given 09/06/2015 17:37 EST 5,000 Units HYDROmorphone (PF) (DILAUDID) 1 mg/mL injection 0.2-1 mg 0.2-1 mg, intravenous, EVERY 10 MINUTES PRN, Starting on Sat09/05/15 at 0908, Until Sat09/05/15 at 1206, Pain, Routine, Recovery (only) Given 09/05/2015 10 :37 EST 0.5 mg Given 09/05/2015 10:20 EST 0.5 mg Given 09/05/2015 10:13 EST 0.4 mg HYDROmorphone 1 mg/ml (DILAUDID) OFFICE SUPPORT syringe, 30 ml intravenous, OFFICE SUPPORT, Starting on Sat09/05/15 at 1015, Until Sat09/07/15 at 0726, See PRN bolus orders for breakthrough pain. CLICK to see order details, Routine, OFFICE SUPPORT Dose (mg): 0.2, Lockout Interval (minutes): 10, Maximum Limit (mg/hr): 1.2, On Unit Rate Documented 09/06/2015 19:11 EST New Bag 09/06/2015 12:30 EST Rate Documented 09/05/2015 13:22 EST HYDROmorphone 1 mg/ml (DILAUDID) syringe, 30 ml - Alaris PRN 0.4 mg, intravenous, EVERY 1 HOUR PRN, Starting on Sat09/05/15 at 1225, Until Sat09/07/15 at 0726, Pain, Routine, On Unit Given 09/05/2015 13:24 EST 0.4 mg ketOROLAC (TORADOL) injection 15 mg 15 mg, intravenous, EVERY 6 HOURS, 6 doses, First dose on Sat09/05/15 at 1845, Last dose on Sat09/06/15 at 1915, Routine, On Unit Given 09/06/2015 20:08 EST 15 mg Given 09/06/2015 12:12 EST 15 mg Given 09/06/2015 6:18 EST 15 mg ketOROLAC (TORADOL) injection 30 mg 30 mg, intravenous, NOW X1, 1 dose, On Sat09/05/15 at 1245, Routine, On Unit Given 09/05/2015 13:40 EST 30 mg lactated ringers (LR) infusion 25 mL/hr, intravenous, CONTINUOUS, Starting on Sat09/05/15 at 0645, Until Sat09/05/15 at 1225, Routine, Pre-Op DOS Rx Approved New Bag 09/05/2015 6:15 EST 25 mL/hr 25 mL/hr lansoprazole (PREVACID SOLUTAB) disintegrating tablet 30 mg 30 mg, oral, DAILY, First dose on Sat09/07/15 at 0900, Until Discontinued, Routine, On Unit Given 09/07/2015 8:08 EST 30 mg metoCLOPramide (REGLAN) injection 10 mg 10 mg, intravenous, EVERY 6 HOURS, 8 doses, First dose on Sat09/05/15 at 1245, Last dose on Sat09/07/15 at 0600, Routine, On Unit Given 09/07/2015 5:43 EST 10 mg Given 09/07/2015 0:04 EST 10 mg Given 09/06/2015 17:38 EST 10 mg midazolam (PF) (VERSED) 1 mg/mL injection 1 mg 1 mg, intravenous, EVERY 5 MIN PRN, 2 doses, Starting on Sat09/05/15 at 0908, Until Sat09/05/15 at 1206, Anxiety, Routine, Recovery (only) Given 09/05/2015 10:57 EST 1 m g ondansetron (PF) (ZOFRAN) injection 4 mg 4 mg, intravenous, ONCE PRN, 1 dose, Starting on Sat09/05/15 at 0949, Until Sat09/05/15 at 1013, Nausea, Routine, Recovery (only) Given 09/05/2015 10:13 EST 4 mg ondansetron (PF) (ZOFRAN) injection 4 mg 4 mg, intravenous, EVERY 4 HOURS PRN, Starting on Sat09/05/15 at 1225, Until Sat09/07/15 at 1423, Nausea, Routine, On Unit Given 09/06/2015 22:09 EST 4 mg Given 09/06/2015 15:13 EST 4 mg oxyCODONE (ROXICODONE) solution 5-10 mg 5-10 mg, oral, EVERY 3 HOURS PRN, Starting on Sat09/07/15 at 0000, Until Sat09/07/15 at 1423, Pain, Routine, On Unit Given 09/07/2015 10:06 EST 10 mg pantoprazole (PROTONIX) injection 40 mg 40 mg, intravenous, Once (Without Time Specified), 1 dose, Starting on Sat09/05/15 at 0949, Until Sat09/05/15 at 1000, Routine, Recovery (only) Given 09/05/2015 10:00 EST 40 mg pantoprazole (PROTONIX) injection 40 mg 40 mg, intravenous, DAILY, 1 dose, First dose on Sat09/06/15 at 0900, Routine, On Unit Given 09/06/2015 8:15 EST 40 mg pantoprazole (PROTONIX) injection 40 mg 40 mg, intravenous, NOW X1, 1 dose, On Sat09/05/15 at 2130, Routine Given 09/05/2015 21:36 EST 40 mg documented in this encounter Discontinued Medications Medication Sig Discontinue Reason Start Date End Da te HYDROcodone-acetaminophen (NORCO) 5-325 mg per tablet Take 1 Tab by mouth every 6 hours as needed for Pain. 09/10/2013 08/15/2015 pediatric multivitamin (JUAN CHEW VIT) chewable tablet Take 1 Tab by mouth daily 09/07/2015 oxyCODONE (ROXICODONE) 5 mg immediate release tablet Take 10 mg by mouth every 4 hours. 09/07/2015 ACETAMINOPHEN (TYLENOL ORAL) Take 650 mg by mouth as needed. 09/07/2015 documented as of this encounter Historical Medications * This list may reflect changes made after this encounter. Medication Sig Dispensed Refills Start Date End Date pediatric multivitamin (JUAN CHEW VIT) chewable tablet Take 1 Tab by mouth daily 09/07/2015 added in this encounter Active and Recently Administered Medications Times are shown in EST. Scheduled Medication Order 09/05/2015 09/06/2015 09/07/2015 acetaminophen (OFIRMEV) IV solution 1,000 mg (COMPLETED) 1,000 mg, intravenous, NOW X1, 1 dose, [...] in ED, PACU or ICU? Yes, Routine 1011 (Given - Provider: Mahogany Deleon RN) acetaminophen (TYLENOL) solution unit dose cup 650 mg 650 mg, oral, EVERY 4 HOURS, First dose on Sat09/07/15 at 0000, Until Discontinued, Routine, On Unit 2320 (Not Given - Provider: Hortencia Franz RN - Reason: Patient/family refused) 0402 (Given - Provider: Hortencia Franz RN)0808 (Given - Provider: Belkis Braun, ALEXANDER)1212 (Given - Provider: Belkis Braun RN) ceFAZolin (ANCEF) 2 g in sodium chloride 0.9% 50 mL IVPB (COMPLETED) 2 g, intravenous, Administer over 30 Minutes, Once (Without Time Specified), 1 dose, Starting on Sat09/05/15 at 0949, Until Sat09/05/15 at 1108, Routine, Recovery (only) 1038 (Given - Provider: Mahogany Deleon RN) ceFAZolin (ANCEF) 2 g in sodium chloride 0.9% 50 mL IVPB (COMPLETED) 2 g, intravenous, Administer over 30 Minutes, EVERY 8 HOURS, 2 doses, First dose on Sat09/05/15 at 1600, Last dose on Sat09/06/15 at 0000, Routine, On Unit 1544 (Given - Provider: Valente Hernandez) 0001 (Given - Provider: Vanesa Fonseca RN) ceFAZolin (ANCEF) syringe 2 g (COMPLETED) 2 g, intravenous, Administer over 10 Minutes, PRE-OP ONCE, 1 dose, On Sat09/05/15 at 0645, Routine, Pre-Op DOS Rx Approved 0800 (Given by Other - Provider: Valentine Luis RN - Comment: Given in OR by TEE Rodriguez) heparin injection 5,000 Units (COMPLETED) 5,000 Units, subcutaneous, PRE-OP ONCE, 1 dose, On Sat09/05/15 at 0645, Routine, Pre-Op DOS Rx Approved 0721 (Given - Provider: Elo Min RN) heparin injection 5,000 Units (CANCELED) 5,000 Units, subcutaneous, EVERY 8 HOURS, First dose on Sat09/05/15 at 1600, Until Discontinued, Routine, On Unit 1544 (Given - Provider: Valente Hernandez) 0001 (Given - Provider: Vanesa Fonseca RN)0815 (Given - Provider: Valente Hernandez)1737 (Given - Provider: Kizzy Leiva RN) 0004 (Given - Provider: Hortencia Franz RN)0808 (Given - Provider: Belkis Braun RN) ketOROLAC (TORADOL) injection 15 mg (CANCELED)(Linked Group 1) 15 mg, intravenous, EVERY 6 HOURS, 6 doses, First dose on Sat09/05/15 at 1845, Last dose on Sat09/06/15 at 1915, Routine, On Unit 1811 (Given - Provider: Valente Hernandez) 0001 (Given - Provider: Vanesa Fonseca RN)0618 (Given - Provider: Vanesa Fonseca RN)121 (Given - Provider: Valente Hernandez)1845 (Canceled Entry - Provider: Kizzy Leiva RN)2007 (Given - Provider: Hortencia Franz RN) ketOROLAC (TORADOL) injection 30 mg (COMPLETED)(Linked Group 1) 30 mg, intravenous, NOW X1, 1 dose, On Sat09/05/15 at 1245, Routine, On Unit 1340 (Given - Provider: Yola Jarvis) lansoprazole (PREVACID SOLUTAB) disintegrating tablet 30 mg (CANCELED)(Linked Group 2) 30 mg, oral, DAILY, First dose on Sat09/07/15 at 0900, Until Discontinued, Routine, On Unit 0808 (Given - Provider: Belkis Braun RN) metoCLOPramide (REGLAN) injection 10 mg (COMPLETED) 10 mg, intravenous, EVERY 6 HOURS, 8 doses, First dose on Sat09/05/15 at 1245, Last dose on Sat09/07/15 at 0600, Routine, On Unit 1340 (Given - Provider: Yola Jarvis)1904 (Given - Provider: Valente Hernandez) 0001 (Given - Provider: Vanesa Fonseca RN)0618 (Given - Provider: Vanesa Fonseca RN)1212 (Given - Provider: Vlaente Hernandez)1738 (Given - Provider: Kizzy Leiva RN)1900 (Canceled Entry - Provider: Kizzy Leiva RN) 0004 (Given - Provider: Hortencia Franz, ALEXANDER)0543 (Given - Provider: Hortencia Franz RN) pantoprazole (PROTONIX) injection 40 mg (COMPLETED) 40 mg, intravenous, Once (Without Time Specified), 1 dose, Starting on Sat09/05/15 at 0949, Until Sat09/05/15 at 1000, Routine, Recovery (only) 1000 (Given - Provider: Mahogany Deleon RN) pantoprazole (PROTONIX) injection 40 mg (COMPLETED)(Linked Group 2) 40 mg, intravenous, DAILY, 1 dose, First dose on Sat09/06/15 at 0900, Routine, On Unit 0815 (Given - Provider: Valente Hernandez) pantoprazole (PROTONIX) injection 40 mg (COMPLETED) 40 mg, intravenous, NOW X1, 1 dose, On Sat09/05/15 at 2130, Routine 2136 (Given - Provider: Vanesa Fonseca, RN) Continuous Medication Order 09/05/2015 09/06/2015 09/07/2015 dextrose 5 % and 0.45 % NaCl with KCl 20 mEq/L infusion (CANCELED) 125 mL/hr, intravenous, CONTINUOUS, Starting on Sat09/05/15 at 1015, Until Sat09/07/15 at 0726, Routine, On Unit 1007 (New Bag - Provider: Mahogany Deleon RN)1321 (Rate Documented - Provider: Yola Jarvis)1904 (New Bag - Provider: Valente Hernandez) 0350 (New Bag - Provider: Vanesa Fonseca, RN)1213 (New Bag - Provider: Valente Hernandez)1911 (Rate Documented - Provider: Hortencia Franz, RN)2007 (New Bag - Provider: Hortencia Franz, RN) 0407 (New Bag - Provider: Hortencia Franz, RN) HYDROmorphone 1 mg/ml (DILAUDID) OFFICE SUPPORT syringe, 30 ml (CANCELED) intravenous, OFFICE SUPPORT, Starting on Sat09/05/15 at 1015, Until Sat09/07/15 at 0726, See PRN bolus orders for breakthrough pain. CLICK to see order details, Routine, OFFICE SUPPORT Dose (mg): 0.2, Lockout Interval (minutes): 10, Maximum Limit (mg/hr): 1.2, On Unit 1028 (New Bag - Provider: Mahogany Deleon RN)1322 (Rate Documented - Provider: Yola Jarvis) 1230 (New Bag - Provider: Valente Hernandez)1234 (Waste - Provider: Valente Hernandez - Comment: Wasting 6ml)191 (Rate Documented - Provider: Hortencia Franz RN) lactated ringers (LR) infusion (CANCELED) 25 mL/hr, intravenous, CONTINUOUS, Starting on Sat09/05/15 at 0645, Until Sat09/05/15 at 1225, Routine, Pre-Op DOS Rx Approved 0615 (New Bag - Provider: Elo Min RN)0931 (Completed - Provider: Mahogany Deleon RN) PRN Medication Order 09/05/2015 09/06/2015 09/07/2015 diphenhydrAMINE (BENADRYL) injection 12.5-25 mg (CANCELED) 12.5-25 mg, intravenous, EVERY 6 HOURS PRN, Starting on Sat09/05/15 at 1225, Until Sat09/07/15 at 1423, Itching, Routine, On Unit 1340 (Given - Provider: Yola Jarvis)2136 (Given - Provider: Vanesa Fonseca, RN) 2206 (Given - Provider: Hortencia Franz, ALEXANDER) 0549 (Given - Provider: Hortencia Franz RN) diphenhydrAMINE (BENADRYL) injection 6.25 mg (COMPLETED) 6.25 mg, intravenous, PRN, 2 doses, Starting on Sat09/05/15 at 0908, Until Sat09/05/15 at 1050, nausea, Routine, Recovery (only) 0946 (Given - Provider: Mahogany Deleon RN)1050 (Given - Provider: Mahogany Deleon RN - Comment: for itchiness) fentaNYL citrate (PF) 50 mcg/mL injection 25-100 mcg (CANCELED) 25-100 mcg, intravenous, EVERY 5 MIN PRN, Starting on Sat09/05/15 at 0908, Until Sat09/05/15 at 1206, Pain, Routine, Recovery (only) 0944 (Given - Provider: Mahogany Deleon RN)0953 (Given - Provider: Mahogany Deleon, ALEXANDER) HYDROmorphone (PF) (DILAUDID) 1 mg/mL injection 0.2-1 mg (CANCELED) 0.2-1 mg, intravenous, EVERY 10 MINUTES PRN, Starting on Sat09/05/15 at 0908, Until Sat09/05/15 at 1206, Pain, Routine, Recovery (only) 0952 (Given - Provider: Mahogany Deleon RN)1013 (Given - Provider: Mahogany Deleon RN)1020 (Given - Provider: Mahogany Deleon RN)1037 (Given - Provider: Mahogany Deleon RN) HYDROmorphone 1 mg/ml (DILAUDID) syringe, 30 ml - Alaris PRN (CANCELED) 0.4 mg, intravenous, EVERY 1 HOUR PRN, Starting on Sat09/05/15 at 1225, Until Sat09/07/15 at 0726, Pain, Routine, On Unit 1324 (Given - Provider: Yola Jarvis) midazolam (PF) (VERSED) 1 mg/mL injection 1 mg (CANCELED) 1 mg, intravenous, EVERY 5 MIN PRN, 2 doses, Starting on Sat09/05/15 at 0908, Until Sat09/05/15 at 1206, Anxiety, Routine, Recovery (only) 1057 (Given - Provider: Mahogany Deleon RN) ondansetron (PF) (ZOFRAN) injection 4 mg (COMPLETED) 4 mg, intravenous, ONCE PRN, 1 dose, Starting on Sat09/05/15 at 0949, Until Sat09/05/15 at 1013, Nausea, Routine, Recovery (only) 1013 (Given - Provider: Mahogany Deleon RN) ondansetron (PF) (ZOFRAN) injection 4 mg (CANCELED) 4 mg, intravenous, EVERY 4 HOURS PRN, Starting on Sat09/05/15 at 1225, Until Sat09/07/15 at 1423, Nausea, Routine, On Unit 1513 (Given - Provider: Valente Hernandez)2209 (Given - Provider: Hortencia Franz RN) oxyCODONE (ROXICODONE) solution 5-10 mg 5-10 mg, oral, EVERY 3 HOURS PRN, Starting on Sat09/07/15 at 0000, Until Sat09/07/15 at 1423, Pain, Routine, On Unit 1006 (Given - Provider: Kristin Abebe RN) Linked Groups Order Group 1: ketOROLAC (TORADOL) injection 30 mg (COMPLETED)Jump to med 30 mg, intravenous, NOW X1, 1 dose, On Sat09/05/15 at 1245, Routine, On Unit Followed by ketOROLAC (TORADOL) injection 15 mg (CANCELED)Jump to med 15 mg, intravenous, EVERY 6 HOURS, 6 doses, First dose on Sat09/05/15 at 1845, Last dose on Sat09/06/15 at 1915, Routine, On Unit Group 2: pantoprazole (PROTONIX) injection 40 mg (COMPLETED)Jump to med 40 mg, intravenous, DAILY, 1 dose, First dose on Sat09/06/15 at 0900, Routine, On Unit Followed by lansoprazole (PREVACID SOLUTAB) disintegrating tablet 30 mg (CANCELED)Jump to med 30 mg, oral, DAILY, First dose on Sat09/07/15 at 0900, Until Discontinued, Routine, On Unit documented in this encounter Orders Medications Ordered That Jakob ht Not Have Been Administered Count Last Ordered Date First Ordered Date acetaminophen (TYLENOL) suppository 650 mg 1 09/05/2015 atropine 0.1 mg/mL syringe 0.5 mg 1 016 hydrALAzine (APRESOLINE) 10 mg in sodium chloride (NS) 0.9 % 50 mL IVPB 1 09/05/2015 HYDROmorphone (PF) (DILAUDID ) 1 mg/mL injection 0.2-0.4 mg 1 09/05/2015 lactated ringers (LR) infusion 1 09/05/2015 meperidine (PF) (DEMEROL) 25 mg/0.5 mL injection 12.5 mg 1 09/05/2015 metoCLOPramide (REGLAN) injection 10 mg 1 0 09/05/2015 nalOXone (NARCAN) injection 0.1 mg 1 2015 nalOXone (NARCAN) injection 0.2 mg 1 2015 ondansetron (PF) (ZOFRAN) injection 2 mg 1 09/05/2015 ondansetron (ZOFRAN-ODT) dis integrating tablet 4 mg 1 09/05/2015 oxyCODONE (ROXICODONE INTENS OL) concentrated solution 10 mg 1 09/05/2015 promethazine (PHENERGAN) injection 25 mg 2 09/05/2015 Diet Count Last Ordered Date First Orde red Date DISCHARGE DIET 1 09/07/2015 Nursing Count Last Ordered Date First Orde red Date ACTIVITY INSTRUCTIONS 1 09/07/2015 WOUND CARE INSTRUCTIONS 1 09/07/2015 INSERT MI CATHETER 1 09/05/[address] SEQUENTIAL COMPRESSION DEVICE 1 09/05 IV Count Last Ordered Date First Orde red Date IV REQUEST 1 09/06/2015 Admission Count Last Ordered Date First Orde red Date STATUS: INPATIENT DOSA/DOPA DAY OF SURGERY/PROCEDURE ADMISSION 1 09/05/2015 Transfer Count Last Ordered Date First Orde red Date NOTIFY PPS OF DISCHARGE COMPLETE 1 09/07/19 16 NOTIFY PPS PATIENT ARRIVAL IN PACU 1 2015 NOTIFY PPS PATIENT TRANSFERRED OUT OF PACU 1 09/05/2015 PPS NOTIFICATION OF PATIENT ARRIVAL ON UNIT 1 09/05/2015 Discharge Count Last Ordered Date First Orde red Date DISCHARGE PATIENT 1 09/07/2015 documented in this encounter Care Teams Orthopedic Rn Relationship Specialty Start Date End Date Alejandra Trevino MD [address] [facility] [place] [id number] PCP - General 09/25/12 12/07/18 documented as of this encounter
--- OUTSIDE RECORDS SUMMARY | 2024-04-22 23:51 | XMS_ITS | Encounter Summary ---
Author Organization [facility] Address [address] [place] [address] Care Team Providers Care Soda Fountain Clerk Name Role Phone Juma Herrera MD Primary Care Provider [phone] Encounter Details Date Type Department Care Team (Latest Contact Info) Description 05/10/2014 6:02 EDT - 05/10/2014 23:59 EDT Hospital Encounter [address] [id number] [place] [address] Unknown, Provider, Discharge Disposition: Home or Self [...] 650 mg by mouth as needed. 09/07/2015 cholecalciferol, Vitamin D3, 1,000 unit tablet Take 1,000 Units by mouth 2 times daily. 02/03/2015 duloxetine (CYMBALTA) 60 mg capsule Take 60 mg by mouth daily. Take with 30mg cap to = 90mg dose 02/03/2015 HYDROcodone-acetaminoph en (NORCO) 5-325 mg per tablet Take 1 Tab by mouth every 6 hours as needed for Pain. 60 Each 0 09/10/2013 08/15/2015 meloxicam (MOBIC) 7.5 mg tablet Take 1 Tab by mouth daily. 30 Tab 2 05/04/2014 02/03/2015 methylphenidate (RITALIN) 10 mg tablet Take 10 mg by mouth daily. 02/03/2015 methylPREDNISolone (MEDROL DOSEPACK) 4 mg tablet follow package directions 1 Each 0 09/10/2013 02/03/2015 [place]-3 Fatty Acids-Vitamin E (FISH OIL) 1,000 mg cap Take 1,000 mg by mouth 2 times daily. 02/03/2015 oxyCODONE (ROXICODONE) 5 mg immediate release tablet Take 10 mg by mouth every 4 hours. 09/07/2015 prochlorperazine (COMPAZINE) 10 mg tablet Take 1 Tab by mouth every 6 hours as needed for Nausea. 10 Tab 2 09/29/2012 08/31/2015 rizatriptan (MAXALT) 10 mg tablet Take 10 mg by mouth once as needed. May repeat in 2 hours if needed 12/18/2021 topiramate (TOPAMAX) 100 mg tablet Take 200 mg by mouth 2 times daily. 02/03/2015 documented as of this encounter Discharge Disposition Disposition Code Departure Means Destination Home or Self Nursing Home documented in this encounter Plan of Treatment Upcoming Encounters Date Type Department Care Team (Late st Contact Info) Description 04/27/2024 14:30 EDT Telemedicine [facility] Neurology - [address] [place] [address] Kj Gloria MD PhD [address] [facility], [address] [place] [address] 04/30/2024 9:30 EDT Office Visit [facility] Interventional Pain [address] [place], [place] [id number] Catalino Garrett MD [address] [place] [address] 09/18/2024 11:00 EST Office Visit [facility] Bariatric Surgery - [place] [address] [place], [place] [id number] Allen Thompson PA-C [address] [facility] [address] [place] [address] documented as of this encounter Visit Diagnoses Not on filedocumented in this encounter Care Teams Soda Fountain Clerk Relationship Specialty Start Date End Date Juma Herrera MD [address] [facility] [phone] PCP - General 09/25/12 12/07/18 documented as of this encounter
--- OUTSIDE RECORDS SUMMARY | 2024-04-22 23:51 | XMS_ITS | Encounter Summary ---
Author Organization [facility] Address [address] [place] [address] Care Team Providers Care Supervisor Frame Sample And Pattern Name Role Phone Juma Herrera MD Primary Care Provider [phone] Unknown, Provider Primary Care Provider [phone] Juma Herrera MD Unavailable Juma Herrera MD Primary Care Provider [phone] Shonda Sánchez NP Primary Care Provider [phone] [facility] Primary Care Provider [phone] Curtis Burns MD Primary Care Provider [phone] Encounter Details Date Type Department Care Team (Late st Contact Info) Description 01/07/2013 Documentation Visit [facility] - [address] [place], [place] [id number] Abrahan Graves MD [address] [place] [address] Social History Tobacco Use Types Packs/Day Years [...] as of this encounter Progress Notes * Abrahan Graves MD - 01/12/2013 1031 EDT [facility] PROGRESS/FOLLOWUP NOTE - 01/07/2013 PAINTINGS CONSERVATOR: Skin biopsy. INDICATIONS: Small fiber neuropathy. The patient presents for a skin biopsy for evaluation of small fiber neuropathy. Procedure was explained to the patient and informed consent obtained. The patient placed in supine position. Three skin biopsies were performed involving the right lateral foot, right lateral calf and right lateral thigh, 0.25% bupivacaine used for local anesthesia. Disposable 3 mm circular punch was used to obtain skin biopsies. Hemostasis was secured. No complication observed. The patient was discharged in stablecondition. Electronically Signed by Abrahan Graves MD 01/12/2013 17:01 Abrahan Graves MD - Abrahan Graves MD - Job ID: SM Doc ID: [id number] Ext Doc ID: [id number] cc: Zachery Walters MD documented in this encounter Plan of Treatment Upcoming Encounters Date Type Department Care Team (Late st Contact Info) Description 04/27/2024 14:30 EDT Telemedicine [facility] - [address] [id number] Kj Gloria MD PhD 1 [facility], Level 2 [place] [phone] 04/30/2024 9:30 EDT Office Visit [facility] Interventional Pain 62 [facility] [place] [address] Catalino Garrett MD [address] [facility] [address] [place] [address] 09/18/2024 11:00 EST Office Visit [facility] B[facility]ric Surgery - [place] [address] [place], [place] [address] Allen Thompson PA-C 111 [facility], Level 5 [place] [phone] documented as of this encounter Visit Diagnoses Not on filedocumented in this encounter Additional Health Concerns Infection Onset Date Last Indicated Resolved Time COVID-19 08/15/2021 08/15/2021 09/04/2021 22:1 5 EST documented as of this encounter Care Teams Supervisor Frame Sample And Pattern Relationship Specialty Start Date End Date Juma Herrera MD [address] [place] [address] PCP - General 09/25/12 12/07/18 Unknown, Provider, PCP - General 12/08/18 01/06/19 Juma Herrera MD [address] [place] [address] PCP - General 01/07/19 03/13/21 Shonda Sánchez [employer] [address] [place] [address] [address] [place] [address] PCP - General 03/14/21 01/31/22 [facility], [address] [place] [address] PCP - General 02/01/22 07/05/22 Curtis Burns MD 26 [facility] [address] [place], [place] [address] PCP - General Emergency Medicine 07/06/22 Juma Herrera MD [address] [employer] [place] [address] 12/08/18 documented as of this encounter
--- OUTSIDE RECORDS SUMMARY | 2024-04-22 23:51 | XMS_ITS | Encounter Summary ---
Author Organization [facility] Address [address] [place] [address] Care Team Providers Care Stock Driver Name Role Phone Juma Herrera MD Primary Care Provider [phone] Encounter Details Date Type Department Care Team (Late st Contact Info) Description 12/03/2014 Documentation Visit [facility] Bariatric Surgery - [place] [address] [place], [place] [address] Lux Dumont RD Social History Tobacco Use Types Packs/Day Years [...] this encounter Progress Notes * Lux Dumont - 04/01/2015 1639 EDT See flowsheet documented in this encounter Plan of Treatment Upcoming Encounters Date Type Department Care Team (Late st Contact Info) Description 04/27/2024 14:30 EDT Telemedicine [facility] Neurology - S [address] 8[address] Kj Gloria MD PhD [address] [place] [address] Level 2 [place] [phone] 04/30/2024 9:30 EDT Office Visit [facility] Interventional Pain [address] [place], [place] [phone] Catalino Garrett MD [address] [facility] [address] [place] [address] 09/18/2024 11:00 EST Office Visit [facility] Bariatric Surgery - [place] [address] [place], [place] [address] Allen Thompson PA-C 111 [facility], Level 5 [place] [address] documented as of this encounter Visit Diagnoses Not on filedocumented in this encounter Care Teams Stock Driver Relationship Specialty Start Date End Date Juma Herrera MD [address] [facility] [place] [address] PCP - General 09/25/12 12/07/18 documented as of this encounter
--- OUTSIDE RECORDS SUMMARY | 2024-04-22 23:51 | XMS_ITS | Encounter Summary ---
Author Organization [facility] Address [address] [place] [address] Care Team Providers Care Powder Mixer Name Role Phone Juma Herrera MD Primary Care Provider [phone] Encounter Details Date Type Department Care Team (Latest Contact Info) Description 01/18/2015 6:54 EDT - 01/18/2015 9:21 EDT Hospital Encounter [facility] Endoscopy Outpatient [address] [place] [address] Master Ugarte MD [address] [place] [address] Discharge Disposition: Home or Self Care Social [...] package directions 1 Each 0 09/10/2013 02/03/2015 [place]-3 Fatty Acids-Vitamin E (FISH OIL) 1,000 mg cap Take 1,000 mg by mouth 2 times daily. 02/03/2015 oxyCODONE (ROXICODONE) 5 mg immediate release tablet Take 10 mg by mouth every 4 hours. 09/07/2015 prochlorperazine (COMPAZINE) 10 mg tablet Take 1 Tab by mouth every 6 hours as needed for Nausea. 10 Tab 2 09/29/2012 08/31/2015 PROPRANOLOL HCL (PROPRANOLOL ORAL)Indications:migrai ne Take 120 mg by mouth daily 01/28/2019 [...] documented in this encounter H&P Notes * Master Ugarte MD - 01/18/2015 0804 EDT Endoscopy Sedation for Procedure History & Physical Date: 01/18/2015 Time: 8:04 Location: [address] Planned Procedure: Gastroscopy Chief Complaint/Indications for Procedure: [...] follow package directions 1 Each 0 ??? [place]-3 Fatty Acids-Vitamin E (FISH OIL) 1,000 mg [...] (Tympanic) Resp 16 Ht 172.7 cm (68) Wt 134.718 kg (297 lb) BMI 45.17 [...] Sedation?: Yes Master Ugarte MD 01/18/2015 8:04 * Albert Carney MD - 01/18/2015 0758 EDT Endoscopy Sedation for Procedure History & Physical Date: 01/18/2015 Time: 7:58 Location: [address] Planned Procedure: Gastroscopy Chief Complaint/Indications for Procedure: [...] follow package directions 1 Each 0 ??? [place]-3 Fatty Acids-Vitamin E (FISH OIL) 1,000 mg [...] (Tympanic) Resp 16 Ht 172.7 cm (68) Wt 134.718 kg (297 lb) BMI 45.17 [...] Info) Description 04/27/2024 14:30 EDT Telemedicine [facility] Neurology - [address] [id number] Kj Gloria MD PhD 1 [facility], Level 2 [place] [phone] 04/30/2024 9:30 EDT Office Visit [facility] Interventional Pain [address] [place] [address] Catalino Garrett MD 62 [facility] [address] [place] [address] 09/18/2024 11:00 EST Office Visit [facility] Bariatric Surgery [place] [address] [place] [address] Allen Thompson PA-C 111 [facility] 5 [place] [address] documented as of this encounter Procedures Procedure Name Priority Date/Time Associated Diagnosis Comments PROCEDURE REPORTS - SCANNED 01/19/2015 0:36 EDT documented in this encounter Results * PROCEDURE REPORTS - SCANNED (01/19/2015 0:36 EDT) 01/19/2015 0:36 EDT Scan 2 Medical Registrar PROCEDURE/MINOR LÓPEZ GICAL ORDERABLES documented in this encounter Visit Diagnoses Not on filedocumented in this encounter Administered Medications Inactive Administered Medications - up to 3 most recent administrations Medication Order MAR Action Action Date Dose Rate Site fentaNYL citrate (PF) 50 mcg/mL injection 100-150 mcg 100-150 mcg, intravenous, ONCE PRN, 1 dose, Starting on Sat01/18/15 at 0806, Until Sat01/18/15 at 0821, Other, sedation, Routine, Intraprocedure Given 01/18/2015 8:21 EDT 150 mcg lactated ringers (LR) infusion at 25 mL/hr, intravenous, CONTINUOUS, Starting on Sat01/18/15 at 0815, Until Sat01/18/15 at 1122, Routine New Bag 01/18/2015 7:52 EDT 25 mL/hr midazolam (PF) (VERSED) 1 mg/mL injection 1-3 mg 1-3 mg, intravenous, ONCE PRN, 1 dose, Starting on Sat01/18/15 at 0806, Until Sat01/18/15 at 0822, Sedation, Routine, Intraprocedure Given 01/18/2015 8:22 EDT 3 mg documented in this encounter Historical Medications * This list may reflect changes made after this encounter. Medication Sig Dispensed Refills Start Date End Date PROPRANOLOL HCL (PROPRANOLOL ORAL)Indications:migraine Take 120 mg by mouth daily 01/28/2019 added in this encounter Orders Medications Ordered That Jakob ht Not Have Been Administered Count Last Ordered Date First Ordered Date lactated ringers (LR) infusion 1 01/18/2015 Transfer Count Last Ordered Date First Orde red Date NOTIFY PPS OF DISCHARGE COMPLETE 1 01/19/20 15 Discharge Count Last Ordered Date First Orde red Date DISCHARGE PATIENT 1 01/18/2015 documented in this encounter Care Teams Powder Mixer Relationship Specialty Start Date End Date Juma Herrera MD [address] [facility] [place] [phone] PCP - General 09/25/12 12/07/18 documented as of this encounter
--- OUTSIDE RECORDS SUMMARY | 2024-04-22 23:51 | XMS_ITS | Encounter Summary ---
Author Organization [facility] Address [address] [place] [address] Care Team Providers Care Cpr Instructor Name Role Phone Juma Herrera MD Primary Care Provider [phone] Reason for Visit * Reason Onset Date Comments Prior Auth, Medication 08/31/2015 Needs brandon or authorization for Zofran and Prilosec. Encounter Details Date Type Department Care Team (Late st Contact Info) Description 08/31/2015 Telephone [facility] Bariatric Surgery [facility] [address] [place] [address] Master Ugarte MD [address] [place] [address] Prior Auth, Medication (Needs prior authorization for Zofran and Prilosec.) Social History Tobacco Use Types Packs/Day Years [...] Dispensed Refills Start Date End Da te prochlorperazine (COMPAZINE) 10 mg tabletIndications:S/P laparoscopic sleeve gastrectomy,Gastroesophage al reflux disease without esophagitis Take 1 Tab by mouth every 6 hours as needed for Nausea 60 Tab 0 08/31/2015 omeprazole (PRILOSEC) 20 mg capsuleIndications:S/P laparoscopic sleeve gastrectomy,Gastroesophage al reflux disease without esophagitis Take 2 Caps by mouth daily 60 Cap 3 08/31/2015 09/22/2021 documented in this encounter Miscellaneous Notes * Telephone Encounter - Mary Rosales RN - 08/31/2015 1601 EST Patients insurance will not cover zofran or omeprazole 40mg capsules. New scripts called in for compazine and omeprazole 20mg capsules. Orders placed per bariatric refill protocol. [facility] Electronically signed by Mary Rosales RN CBN documented in this encounter Plan of Treatment Upcoming Encounters Date Type Department Care Team (Late st Contact Info) Description 04/27/2024 14:30 EDT Telemedicine [facility] Neurology - [address] [phone] Kj Gloria MD PhD 1 [facility] Level 2 [place] [phone] 04/30/2024 9:30 EDT Office Visit [facility] Interventional Pain 62 [facility] [place] [address] Catalino Garrett MD 62 [facility] [address] [place] [address] 09/18/2024 11:00 EST Office Visit [facility] Bariatric Surgery - [place] [address] [place] [address] Allen Thompson PA-C 111 [facility], Level [address] [place] [phone] documented as of this encounter Visit Diagnoses Diagnosis S/P laparoscopic sleeve gastrectomy- Primary Bariatric surgery status Gastroesophageal reflux disease without esophagitis Esophageal reflux documented in this encounter Discontinued Medications Medication Sig Discontinue Reason Start Date End Da te omeprazole (PRILOSEC) 40 mg capsule Take 1 Cap by mouth daily starting after surgery on 09/05/14 Insurance does not cover 08/19/2015 08/31/2015 prochlorperazine (COMPAZINE) 10 mg tablet Take 1 Tab by mouth every 6 hours as needed for Nausea. Alternate therapy 09/29/2012 08/31/2015 ondansetron (ZOFRAN-ODT) 4 mg disintegrating tablet Take 1 Tab by mouth every 8 hours as needed for Nausea starting after surgery on 09/05/14 Insurance does not cover 08/19/2015 08/31/2015 documented as of this encounter Care Teams Cpr Instructor Relationship Specialty Start Date End Date Juma Herrera MD [address] [facility] [place] [phone] PCP - General 09/25/12 12/07/18 documented as of this encounter
--- OUTSIDE RECORDS SUMMARY | 2024-04-22 23:51 | XMS_ITS | Encounter Summary ---
Author Organization [facility] Address [address] [place] [address] Care Team Providers Care City Routeman Name Role Phone Juma Herrera MD Primary Care Provider [phone] Reason for Visit * Reason Comments Pre-op Exam pre op Encounter Details Date Type Department Care Team (Late st Contact Info) Description 06/06/2015 15:45 EDT Office Visit [facility] Bariatric Surgery [place] [address] [place], [place] [address] Allen Thompson, PA-C 111 [facility], Level 5 [place] [address] Morbid obesity with BMI of [...] Morbid (severe) obesity due to excess calories-E66.01[ICD-10-CM] Z68.42 Body mass index (BMI) 45.0-49.9, adult-Z68.42[ICD-10-CM] documented in this encounter Progress Notes * Apolonia Holcomb - 06/08/2015 1306 EDT Received completed blended diet homework 06/07. Reviewed with minimal corrections needed. Met daily protein and hydration goals utilizing correct dietary consistencies. Apolonia Holcomb, RD, CD * Allen Thompson PA - 06/06/2015 1606 EDT 06/06/2015 SUBJECTIVE: [...] 30 minutes to review preoperative dietary recommendations. I consulted with the dietitian following her visit [...] Has made weight loss goal, D low at 26, will schedule for surgery. MARGARITA Gomez * Apolonia Holcomb - 06/06/2015 6859 EDT Medical Nutrition Evaluation-PRE OP NOTE Bariatric Clinic Nutrition Pre-op Visit Visit Number: 6 Desired surgery: Gastric Sleeve Subjective: I logged my liquid trial in my food log. I got a better protein shake today, the Premiere shake from [employer] [place], so I'll use that when I do the liquid diet before my surgery. The blended homework confused me so I haven't done it yet. Food logs: [employer] Meal pattern: good Average caloric intake: 1,600/day. [...] lbs Surgery Date: Significant Medications and Supplements: Woo Pace MVT Assessment: Patient has made progress towards lifestyle changes and met weight loss requirement for surgery. Completed full liquid diet trial, though advised need for at least 50gm Protein daily which she feels confident will be achieved in the future using the higher protein shake she purchased today. Reviewed instructions for the blended diet homework and she plans to completed this tonight and drop it offat clinic tomorrow for RD to review. Plan: Diet Goals: Include protein at least 3 times a day, Keep food records, Add 2 servings of fruit eachday and Calorie goal 1,400-1,600/day. Plans to attend [...] Contact Info) Description 04/27/2024 14:30 EDT Telemedicine [facility] Neurology - S [address] [address] Kj Gloria MD PhD 1 [facility] Level 2 [place] [phone] 04/30/2024 9:30 EDT Office Visit [facility] Interventional Pain [address] [place], [place] [phone] Catalino Garrett MD 62 [facility] [address] [place] [address] 09/18/2024 11:00 EST Office Visit [facility] Bariatric Surgery - [place] [address] [place] [place], [place] [address] Allen Thompson PA-C 111 [facility], Level 5 [place] [phone] documented as of this encounter Visit Diagnoses Diagnosis Morbid obesity with BMI of 45.0-49.9, adult ([facility])- Primary Morbid obesity documented in this encounter Care Teams City Routeman Relationship Specialty Start Date End Date Juma Herrera MD [address] [facility] [place] [phone] PCP - General 09/25/12 12/07/18 documented as of this encounter
--- OUTSIDE RECORDS SUMMARY | 2024-04-22 23:51 | XMS_ITS | Encounter Summary ---
Author Organization [facility] Address [address] [place] [address] Care Team Providers Care Logistics Supply Officer Name Role Phone Juma Herrera MD Primary Care Provider [phone] Reason for Referral * Referral (Routine) - Closed Specialty Diagnoses / Procedures Referred By Contmarco a t Referred To Contact Diagnoses Low back pain Lumbar radiculopathy Strar Hart PA-C [address] [place] [address] Referral ID Status Reason Start Date Expiration Date V isits Requested Visits Authorized [id number] Closed Specialty Services Required 06/02/2014 1 1 Question Answer Reason for Request: aquatic therapy Encounter Details Date Type Department Care Team (Late Contact Info) Description 06/02/2014 Orders Only [facility] Spine Program - [address] [address] Starr Hart PA-C Low back pain (Primary Dx); Lumbar radiculopathy Social History Tobacco Use Types Packs/Day Years [...] Info) Description 04/27/2024 14:30 EDT Telemedicine [facility] Neurology - [address] [phone] Kj Gloria MD PhD 1 [facility], Level 2 [place] [phone] 04/30/2024 9:30 EDT Office Visit [facility] Interventional Pain [address] [place] [address] Catalino Garrett MD [address] [facility] [address] [place] [address] 09/18/2024 11:00 EST Office Visit [facility] Bariatric Surgery - [place] [address] [place], [place] [address] Allen Thompson PA-C 111 [facility], Level 5 [place] [phone] Scheduled Referrals Name Type Priority Associated Diagnoses Orde r Schedule AMB CONS/FOLLOW UP PHYSICAL THERAPY Outpatient Referral Routine Low back pain Lumbar radiculopathy Ordered: 06/02/2014 documented as of this encounter Visit Diagnoses Diagnosis Low back pain- Primary Lumbago Lumbar radiculopathy Thoracic or lumbosacral neuritis or radiculitis, unspecified documented in this encounter Care Teams Logistics Supply Officer Relationship Specialty Start Date End Date Juma Herrera MD [address] [facility] [phone] PCP - General 09/25/12 12/07/18 documented as of this encounter
--- OUTSIDE RECORDS SUMMARY | 2024-04-22 23:51 | XMS_ITS | Encounter Summary ---
Author Organization [facility] Address [address] [place] [address] Care Team Providers Care Director Of Cardiology Name Role Phone Juma Herrera MD Primary Care Provider [phone] Reason for Visit * Reason Comments Obesity Class Encounter Details Date Type Department Care Team (Late st Contact Info) Description 05/18/2015 8:30 EDT Office Visit [facility] Bariatric Surgery - [address] [address] Lux Dumont, RD [address] [place] [address] Morbid obesity with BMI of 45.0-49.9, adult [...] in this encounter Progress Notes * Lux Dumont Ana Luisa - 05/18/2015 1146 [...] Telemedicine [facility] Neurology - [address] [address] Kj Gloria MD PhD 1 [facility] Level 2 [place] [phone] 04/30/2024 9:30 EDT Office Visit [facility] Interventional Pain [address] [place] [address] Catalino Garrett MD 62 [facility] [address] [place] [address] 09/18/2024 11:00 EST Office Visit [facility] Bariatric Surgery - [place] [address] [place] [address] Allen Thompson, PA-C [address] [place] [address], Level [address] [place] [address] documented as of this encounter Visit Diagnoses Diagnosis Morbid obesity with BMI of 45.0-49.9, adult ([facility])- Primary Morbid obesity documented in this encounter Care Teams Director Of Cardiology Relationship Specialty Start Date End Date Juma Herrera MD [address] [facility] [place] [phone] PCP - General 09/25/12 12/07/18 documented as of this encounter
--- OUTSIDE RECORDS SUMMARY | 2024-04-22 23:51 | XMS_ITS | Encounter Summary ---
Author Organization [facility] Address [address] [place] [address] Care Team Providers Care Licensed Prosthetist Name Role Phone Juma Herrera MD Primary Care Provider [phone] Reason for Visit * Reason Onset Date Comments Appointment Related 01/14/2015 Encounter Details Date Type Department Care Team (Late st Contact Info) Description 01/14/2015 Telephone [facility] Bariatric Surgery - [place] [address] [place] [address] Master Ugarte MD [address] [place] [address] Appointment Related Social History Tobacco Use Types [...] Miscellaneous Notes * Telephone Encounter - Loretta Bartlett - 01/14/2015 1410 EDT Called Tia Spain to remind him/her of their EGD scheduled on January 18, 2015 @ 8:00am Please check in with Registration on the third floor at the [facility] at 7:00am (ONE HOUR priorto exam.) To ensure a successful exam, patient [...] [facility] - [address] [place] [address] [place], [place] [address] Kj Gloria MD PhD 1 [facility], Level 2 [place] [phone] 04/30/2024 9:30 EDT Office Visit [facility] Interventional Pain [address] [facility] [place], [place] [phone] Catalino Garrett MD 62 [facility] [address] [place] [address] 09/18/2024 11:00 EST Office Visit [facility] Bariatric Surgery - [place] [address] [place], [place] [address] Allen Thompson, PA-C 111 [facility], Level [address] [place] [phone] documented as of this encounter Visit Diagnoses Not on filedocumented in this encounter Care Teams Licensed Prosthetist Relationship Specialty Start Date End Date Juma Herrera MD [address] [facility] [place] [phone] PCP - General 09/25/12 12/07/18 documented as of this encounter
--- OUTSIDE RECORDS SUMMARY | 2024-04-22 23:51 | XMS_ITS | Encounter Summary ---
Author Organization [facility] Address [address] [place] [address] Care Team Providers Care Pelletizer Name Role Phone Juma Herrera MD Primary Care Provider [phone] Reason for Visit * Reason Onset Date Comments Other 10/25/2014 patient said her counseler hasn't heard from Yamilka. Patient would like a call. Encounter Details Date Type Department Care Team (Late st Contact Info) Description 10/25/2014 Telephone [facility] Bariatric Surgery - [place] [address] [place], [place] [phone] Yamilka Oneal, PhD [address] [place] [address] Other (patient said her counseler hasn't heard from Yamilka. Patient would like a call.) Social History Tobacco Use Types Packs/Day Years [...] encounter Miscellaneous Notes * Telephone Encounter - Shweta Garcia - 10/25/2014 1601 EST Spoke with Tia, she was advised that Dr. Oneal was out town, she was offered to leave a message on Dr. Gaines voice mail documented in this encounter Plan of Treatment Upcoming Encounters Date Type Department Care Team (Late st Contact Info) Description 04/27/2024 14:30 EDT Telemedicine [facility] Neurology - [address] [place] [address] [place], [place] [id number] Kj Gloria MD PhD 1 [facility], Level [address] [place] [phone] 04/30/2024 9:30 EDT Office Visit [facility] Interventional Pain [address] [place] [address] Catalino Garrett MD 62 [facility] [address] [place] [phone] 09/18/2024 11:00 EST Office Visit [facility] Bariatric Surgery - [place] [address] [place], [place] [address] Allen Thompson PA-C 111 [facility], [facility], [address] [place] [phone] documented as of this encounter Visit Diagnoses Not on filedocumented in this encounter Care Teams Pelletizer Relationship Specialty Start Date End Date Juma Herrera MD [address] [facility] [place] [address] PCP - General 09/25/12 12/07/18 documented as of this encounter
--- OUTSIDE RECORDS SUMMARY | 2024-04-22 23:51 | XMS_ITS | Encounter Summary ---
Author Organization [facility] Address [address] [place] [address] Care Team Providers Care Elevator Operator Freight Name Role Phone Juma Herrera MD Primary Care Provider [phone] Reason for Visit * Reason Comments Obesity Pre Op F/U EGD with jose Encounter Details Date Type Department Care Team (Late st Contact Info) Description 03/10/2015 14:15 EDT Office Visit [facility] Bariatric Surgery [facility] [address] [place], [place] [phone] Master Ugarte MD [address] [place] [address] Morbid obesity with BMI of 45.0-49.9, adult (CMS-HCC) (HCC-[facility]) (Primary Dx) Social History Tobacco Use Types [...] documented in this encounter Progress Notes * Dayna Cruz RD - 03/10/2015 1442 EDT [...] food choices with multiple get togethers, BBQ's etc... Where she states many bring chips and other items which she has trouble resisting. Encouraged her to focus on protein, then vegetable, then a small amount of starch food. Discussed emotional eating and encouraged her to limit less healthy foods from her home. Plan: Diet Goals: Focus on identifying emotional eating and choose better options; picnic/BBQ eating ideas Exercise Goals: Plan exercise on the stationary bike to meet goal of 150 minutes/week --consider use of biking during a specific tv show Weight Loss Goal: Has met Weight Loss Remaining to Goal: has met Reviewed: Food/Activity Record Next Visit: Pre-op follow-up visit Dayna Cruz RD * Master Ugarte MD - 03/10/2015 1426 EDT 03/10/2015 SUBJECTIVE: [...] that: egd and egram noprmal will need hpylori breath test as biopsies were not done with zubarik. Master Ugarte MD documented in this encounter Plan of Treatment Upcoming Encounters Date Type Department Care Team (Late st Contact Info) Description 04/27/2024 14:30 EDT Telemedicine [facility] Neurology - [address] [id number] Kj Gloria MD PhD 1 [facility], Level [address] [place] [phone] 04/30/2024 9:30 EDT Office Visit [facility] Interventional Pain 62 [facility] [place], [place] [phone] Catalino Garrett MD 62 [facility] [address] [place] [address] 09/18/2024 11:00 EST Office Visit [facility] Bariatric Surgery - [place] [address] [place], [place] [address] Allen Thompson PA-C 111 [facility], Level [address] [place] [phone] documented as of this encounter Visit Diagnoses Diagnosis Morbid obesity with BMI of 45.0-49.9, adult ([facility])- Primary Morbid obesity documented in this encounter Care Teams Elevator Operator Freight Relationship Specialty Start Date End Date Juma Herrera MD [address] [facility] [place] [address] PCP - General 09/25/12 12/07/18 documented as of this encounter
--- OUTSIDE RECORDS SUMMARY | 2024-04-22 23:51 | XMS_ITS | Encounter Summary ---
Author Organization [facility] Address [address] [place] [address] Care Team Providers Care Finish Mender Name Role Phone Juma Herrera MD Primary Care Provider [phone] Reason for Visit * Reason Comments Neck Pain Encounter Details Date Type Department Care Team (Late st Contact Info) Description 12/09/2012 13:30 EDT Office Visit [facility] Spine Program - [address] [place] [address] Ana Rosa Mendoza MD [address] [place] [address] [place] [address] Cervicalgia (Primary Dx) Social History Tobacco Use Types [...] as of this encounter Progress Notes * Ana Rosa Mendoza MD - 12/12/2012 0831 EDT Spine [place] [facility] (SpINE) [facility] [address] [place] [address] PROGRESS/FOLLOWUP NOTE - 12/09/2012 PROBLEM. 1. 50% [...] on her long and index finger on the right hand, but no discomfort. She is now [...] - AN Job ID: SM Doc ID: [id number] Ext Doc ID: [id number] cc: * Ana Rosa Mendoza MD - 12/09/2012 1448 EDT This office note has been dictated. ANA ROSA MENDOZA MD documented in this encounter Plan of Treatment Upcoming Encounters Date Type Department Care Team (Late st Contact Info) Description 04/27/2024 14:30 EDT Telemedicine [facility] Neurology - [address] [phone] Ana Rosa Gloria MD PhD 1 [facility], Level 2 [place] [address] 04/30/2024 9:30 EDT Office Visit [facility] Interventional Pain [address] [place], [place] [phone] Catalino Garrett MD [address] [place] [address] 09/18/2024 11:00 EST Office Visit [facility] Bariatric Surgery - [place] [address] [place], [place] [address] Allen Thompson PA-C 111 [facility], [facility], Level [address] [place] [address] documented as of this encounter Visit Diagnoses Diagnosis Cervicalgia- Primary documented in this encounter Historical Medications * This list may reflect changes made after this encounter. Medication Sig Dispensed Refills Start Date End Date methylphenidate (RITALIN) 10 mg tablet Take 10 mg by mouth daily. 02/03/2015 rizatriptan (MAXALT) 10 mg tablet Take 10 mg by mouth once as needed. May repeat in 2 hours if needed 12/18/2021 added in this encounter Care Teams Finish Mender Relationship Specialty Start Date End Date Juma Herrera MD [address] [facility] [place] [address] PCP - General 09/25/12 12/07/18 documented as of this encounter
--- OUTSIDE RECORDS SUMMARY | 2024-04-22 23:51 | XMS_ITS | Encounter Summary ---
Author Organization [facility] Address [address] [place] [address] Care Team Providers Care Community Health Outreach Worker Name Role Phone Juma Herrera MD Primary Care Provider [phone] Reason for Referral * Radiology Services (Routine/Next Available) - Closed Specialty Diagnoses / Procedures Referred By Contmarco a mireles Referred To Contact Diagnoses Neck pain Procedures CERVICAL SPINE 4 OR MORE VIEWS Kj Song PA-C [address] [place], [place] [address] [address] Referral ID Status Reason Start Date Expiration Date Visits Re quested Visits Authorized [id number] Closed 09/10/2013 1 1 Reason for Visit * Reason Comments Neck Pain Encounter Details Date Type Department Care Team (Late st Contact Info) Description 09/10/2013 10:15 EST Office Visit [facility] Spine Program - [address] [place] [address] Kj Song PA-C [address] [place], [place] [address] [address] Neck pain (Primary Dx); Cervical radiculopathy Social History Tobacco Use Types Packs/Day [...] Dispensed Refills Start Date End Da te HYDROcodone-acetaminophe n (NORCO) 5-325 mg per tablet Take 1 Tab by mouth every 6 hours as needed for Pain. 60 Each 0 09/10/2013 08/15/2015 methylPREDNISolone (MEDROL DOSEPACK) 4 mg tablet follow package directions 1 Each 0 09/10/2013 02/03/2015 documented in this encounter Progress Notes * Kj Song PA - 09/10/2013 1050 EST The patient is status post C6-7 anterior diskectomy and fusion with interbody graft, Synthes plate performed by Dr Child on September 29, 2012. Postop, she had improved neck and arm symptoms, but overthe last 2 weeks she had acute onset of right upper extremity achiness that radiates to the periscapular area, deltoid, humerus, dorsum of the forearm and into the thumb, index and middle finger. This is constant, vacillating in intensity and gradually increasing and very uncomfortable. She states that everything exacerbates her pain. She finds some relief with lying down on her left side. She has not seen a physical therapist, received cattle care worker, injection therapy and 50% of her discomfort [...] films reveal 7 non-rib bearing cervical vertebrae withprior fixation at C6-7. No signs of hardware failure. Lateral view reveals prior fusion at 6-7. No significant adjacent segment degeneration. No instability in flexion/extension. ASSESSMENT: A 38-year-old female with neck, right upper extremity symptoms likely C6 radiculopathy,possibly a herniated nucleus pulposus at 5-6, it is a little too soon to tell for sure. PLAN: 1. Medrol Dosepak. 2. I gave her a prescription for Vicodin 1 q. 6, 60 tabs. 3. Activity as tolerated. 4. She will phone follow up with us once she completes the Medrol Dosepak, gives us an update on her symptoms. If no relief, we will move forward with an MR of the C-spine and follow up with her post. I spent 30 minutes, with 25 minutes of my time spent face to face discussing symptoms, subjective complaints, and treatment options. documented in this encounter Plan of Treatment Upcoming Encounters Date Type Department Care Team (Late st Contact Info) Description 04/27/2024 14:30 EDT Telemedicine [facility] Neurology - [address] [phone] Kj Gloria MD PhD 1 [facility] Level [address] [place] [phone] 04/30/2024 9:30 EDT Office Visit [facility] Interventional Pain 62 [facility] [place], [place] [phone] Catalino Garrett MD 62 [facility] [address] [place] [address] 09/18/2024 11:00 EST Office Visit [facility] Bariatric Surgery - [place] [address] [place], [place] [address] Allen Thompson PA-C 111 [facility], [address] [place] [phone] documented as of this encounter Procedures Procedure Name Priority Date/Time Associated Diagnosis Comments CERVICAL SPINE 4 OR MORE VIEWS Routine 09/10/2013 10:35 EST Neck pain documented in this encounter Results * CERVICAL SPINE 4 OR MORE VIEWS (09/10/2013 10:35 EST) Anatomical Region Laterality Modality Other 09/10/2013 10:3 5 EST 09/10/2013 11:53 EST Narrative 09/10/2013 11:53 EST Plain film cervical spine : Neck pain Comparison: March 20, 2013 Findings: 4 views. Anterior screw and plate fixation is present at C6-7 with intervertebral bone graft. There is no evidence of hardware failure or periprosthetic lucency to suggest loosening. The density of the intervertebral bone graft is heterogeneous. The endplates are indistinct. The prevertebral soft tissues and craniocervical junction are within normal limits. There are progressive marginal osteophytes at the C5-6 level. Flexion and extension show no instability. The lung apices are clear Conclusion: Post C6-7 anterior screw and plate fixation with intervertebral bone graft. The indistinct margins of the endplates suggest at least partial incorporation of the intervertebral bone graft Progressive degenerative disc disease at C5-6. No instability. Procedure Note 09/10/2013 Plain film cervical spine : Neck pain Comparison: March 20, 2013 Findings: 4 views. Anterior screw and plate fixation is present at C6-7 with intervertebral bone graft. There is no evidence of hardware failure or periprosthetic lucency to suggest loosening. The density of the intervertebral bone graft is heterogeneous. The endplates are indistinct. The prevertebral soft tissues and craniocervical junction are within normal limits. There are progressive marginal osteophytes at the C5-6 level. Flexion and extension show no instability. The lung apices are clear Conclusion: Post C6-7 anterior screw and plate fixation with intervertebral bone graft. The indistinct margins of the endplates suggest at least partial incorporation of the intervertebral bone graft Progressive degenerative disc disease at C5-6. No instability. Kj DEY DIAGNOSTIC IMAGI NG ORDERABLES documented in this encounter Visit Diagnoses Diagnosis Neck pain- Primary Cervicalgia Cervical radiculopathy Brachial neuritis or radiculitis nos documented in this encounter Care Teams Community Health Outreach Worker Relationship Specialty Start Date End Date Juma Herrera MD [address] [place] [phone] PCP - General 09/25/12 12/07/18 documented as of this encounter
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
--- OUTSIDE RECORDS SUMMARY | 2024-04-22 23:51 | XMS_ITS | Encounter Summary ---
Author Organization [facility] Address [address] [place] [address] Care Team Providers Care Service Promoter Salesperson Name Role Phone Juma Herrera MD Primary Care Provider [phone] Reason for Visit * Reason Comments Back Pain low back pain * Consult (Routine) - Specialty Report Received Specialty Diagnoses / Procedures [facility]erred To Contact Pain Medicine Diagnoses Lumbago S/P lumbar fusion Lumbar spondylosis Starr Hart, PA-C [address] [place] [address] [facility] [address] [place] [address] Referral ID Status Reason Start Date Expiration Date Visits Requested Visits Authorized [id number] Specialty Report Received Specialty Services Required 05/04/2014 1 1 Encounter Details Date Type Department Care Team (Latest Contact Info) Description 07/08/2014 13:45 EST Office Visit [facility] Interventional Pain [address] [place] [address] [place] [address] [place] [address] Sacroiliitis, not elsewhere classified (HCC-CMS) (Primary Dx); S/P lumbar fusion Social History Tobacco Use Types Packs/Day Years [...] STATUS[ICD-9-CM] documented in this encounter Patient Instructions * Patient Instructions* Rl Fleming RN - 07/08/2014 14:34 EST [facility] [address] [address] Patient Instructions You have had your bilateral [...] documented in this encounter Progress Notes * Kavon Butler - 07/08/2014 1443 EST Patient Name: Tia Spain : 1975 Date of Service: 07/08/2014 Disk Sharpener: Kavon Butler MD Procedure: bilateral sacroiliac joint injection Interval History Ms. Spain presents to clinic at the request of Starr Hart for diagnostic bilateral SI joint injections. Briefly, she has a history of low back pain and right leg pain that led to an L5-S1 fusion in 1999, which helped her leg and back pain. Over the last few years, she has developed bilateral low back pain that does not radiate and is different to her original pain. This pain is worse with activity and improves with rest. Please see the note from Starr Solo Tanner 05/04/14 for details of the history, [...] (97.6 ??F) (Tympanic) Resp 16 Ht 172.7 cm (68) Wt 149.687 kg (330 lb) BMI 50.19 [...] Depo-Medrol and 2 ml 0.5% Bupivacaine were injected for a total of 3 ml in each joint. See nursing MAR for wasted medications The needle was then flushed and withdrawn. The patient tolerated the procedure well, there were no apparent complications, and she was discharged in stable condition. Written and verbal discharge instructions were reviewed with the patient prior to discharge. * Stacey Wilkes - 07/08/2014 1400 EST [facility] Rooming Note Does patient have a Telephone Switchboard Operator? yes Is patient NPO? (Solids [...] Contact Info) Description 04/27/2024 14:30 EDT Telemedicine [facility] Neurology - [address] [id number] Kj Gloria MD PhD 1 [facility] [address] [place] [phone] 04/30/2024 9:30 EDT Office Visit [facility] Interventional Pain [address] [facility] [place], [place] [phone] Catalino Garrett MD [address] [facility] [address] [place] [address] 09/18/2024 11:00 EST Office Visit [facility] Bariatric Surgery - [place] [address] [place], [place] [address] Allen Thompson PA-C [address] [facility], [address] [place] [phone] documented as of this encounter Visit Diagnoses Diagnosis Sacroiliitis, not elsewhere classified ([facility])- Primary Sacroiliitis, not elsewhere classified S/P lumbar fusion Arthrodesis status documented in this encounter Administered Medications Inactive Administered Medications - up to 3 most recent administrations Medication Order MAR Action Action Date Dose Rate Site bupivacaine (PF) (MARCAINE) 0.5 % (5 mg/mL) injection 30 mg 30 mg (6 mL), intra-articular, NOW X1, 1 dose, On Karen 07/08/14 at 1500, Routine Given by Other 07/08/2014 14:39 EST 30 mg methylPREDNISolone ACETATE (DEPO-MEDROL) injection 80 mg 80 mg, intra-articular, NOW X1, 1 dose, On Karen 07/08/14 at 1500, Routine Given by Other 07/08/2014 14:39 EST 80 mg documented in this encounter Care Teams Service Promoter Salesperson Relationship Specialty Start Date End Date Juma Herrera MD [address] [facility] [place] [phone] PCP - General 09/25/12 12/07/18 documented as of this encounter
--- OUTSIDE RECORDS SUMMARY | 2024-04-22 23:51 | XMS_ITS | Encounter Summary ---
Author Organization [facility] Address [address] [place] [address] Care Team Providers Care Wood Carver Name Role Phone Juma Herrera MD Primary Care Provider [phone] Reason for Referral * Radiology Services (Routine/Next Available) - Closed Specialty Diagnoses / Procedures Referred By Contmarco a t Referred To Contact Diagnoses Neck pain Procedures CERVICAL SPINE 1 VIEW Kj Child MD [address] [place] [phone] Referral ID Status Reason Start Date Expiration Date Visits Re quested Visits Authorized [id number] Closed 03/17/2013 1 1 Encounter Details Date Type Department Care Team (Late st Contact Info) Description 03/12/2013 Orders Only [facility] Spine Program - [address] [place] [address] Kj Child MD [address] [place] [phone] Neck pain (Primary Dx) Social History [...] Contact Info) Description 04/27/2024 14:30 EDT Telemedicine [facility] Neurology - [address] [place] [address] [place], [place] [address] Kj Gloria MD PhD 1 [facility], [address] [place] [phone] 04/30/2024 9:[address] [facility] Interventional Pain [address] [place], [place] [phone] Catalino Garrett MD [address] [facility] [address] [place] [address] 09/18/2024 11:00 EST Office Visit [facility] Bariatric Surgery - [place] [address] [place], [place] [phone] Allen Thompson PA-C [address] [facility], [address] [place] [phone] documented as of this encounter Procedures Procedure Name Priority Date/Time Associated Diagnosis Comments CERVICAL SPINE 1 VIEW Routine 03/20/2013 10:50 EDT Neck pain documented in this encounter Results * CERVICAL SPINE 1 VIEW (03/20/2013 10:50 EDT) Anatomical Region Laterality Modality Other 03/20/2013 10:5 0 EDT 03/20/2013 13:12 EDT Narrative 03/20/2013 13:12 EDT CERVICAL SPINE ONE VIEW March 20, 2013 Indication: Neck pain. Status post C6-C7 anterior decompression and fusion. Comparison: December 09, 2012. Technique: Lateral view of the cervical spine was obtained. Findings: There has been prior anterior discectomy and spinal fusion at C5-C6 and C6-C7. Metallic plate and screws appear intact. No periprosthetic lucency is identified. There is incompletely incorporated interbody bone graft present at this level. Craniocervical and atlantoaxial alignment appear anatomic on this single projection. There is mild anterolisthesis of C7 on T1. Vertebral body heights are preserved. Spondylosis at C5-C6 and C7-T1 does not appear significantly changed from the prior study. Procedure Note 03/20/2013 CERVICAL SPINE ONE VIEW March 20, 2013 Indication: Neck pain. Status post C6-C7 anterior decompression and fusion. Comparison: December 09, 2012. Technique: Lateral view of the cervical spine was obtained. Findings: There has been prior anterior discectomy and spinal fusion at C5-C6 and C6-C7. Metallic plate and screws appear intact. No periprosthetic lucency is identified. There is incompletely incorporated interbody bone graft present at this level. Craniocervical and atlantoaxial alignment appear anatomic on this single projection. There is mild anterolisthesis of C7 on T1. Vertebral body heights are preserved. Spondylosis at C5-C6 and C7-T1 does not appear significantly changed from the prior study. Kj Child MD IMG DIAGNOSTIC I MAGING ORDERABLES documented in this encounter Visit Diagnoses Diagnosis Neck pain- Primary Cervicalgia documented in this encounter Care Teams Wood Carver Relationship Specialty Start Date End Date Juma Herrera MD [address] [place] [phone] PCP - General 09/25/12 12/07/18 documented as of this encounter
--- OUTSIDE RECORDS SUMMARY | 2024-04-22 23:51 | XMS_ITS | Encounter Summary ---
Author Organization [facility] Address [address] [place] [address] Care Team Providers Care Oven Loader Name Role Phone Juma Herrera MD Primary Care Provider [phone] Reason for Visit * Reason Onset Date Comments Appointment Related 09/01/2015 Encounter Details Date Type Department Care Team (Late st Contact Info) Description 09/01/2015 Telephone [facility] General Surgery - [place] [address] [place], [place] [phone] Master Ugarte MD [address] [place] [phone] Appointment Related Social History Tobacco [...] encounter Miscellaneous Notes * Telephone Encounter - Dayna Garcia - 09/01/2015 1604 EST Called Tia to confirm surgery check-in time with Dr. Ugarte. Surgery is scheduled on 09/05/15 at7:25 am please check-in with Registration on the third floor at the [facility] at 6:00 am documented in this encounter Plan of Treatment Upcoming Encounters Date Type Department Care Team (Late st Contact Info) Description 04/27/2024 14:30 EDT Telemedicine [facility] Neurology - [address] [place] [address] [place], [place] [address] Kj Gloria MD PhD 1 [facility], [address] [place] [phone] 04/30/2024 9:30 EDT Office Visit [facility] Interventional Pain [address] [place], [place] [phone] Catalino Garrett MD [address] [place] [address] 09/18/2024 11:00 EST Office Visit [facility] Bariatric Surgery - [place] [address] [place], [place] [address] Allen Thompson PA-C [address] [facility], [address] [place] [phone] documented as of this encounter Visit Diagnoses Not on filedocumented in this encounter Care Teams Oven Loader Relationship Specialty Start Date End Date Juma Herrera MD [address] [facility] [place] [phone] PCP - General 09/25/12 12/07/18 documented as of this encounter
--- OUTSIDE RECORDS SUMMARY | 2024-04-22 23:52 | XMS_ITS | Encounter Summary ---
Author Organization [facility] Address [address] [place] [address] Care Team Providers Care Electric Truck Operator Name Role Phone Donna Mohr NP Primary Care Provider [phone] Reason for Visit * Reason Comments New Patient Visit Encounter Details Date Type Department Care Team ([facility] st Contact Info) Description 07/23/2012 13:00 EST Office Visit [facility] Neurology - [address] [phone] Zachery Walters MD [address] [place] [address] Level 2 [place] [phone] Numbness and tingling; Pain, arm, right Social History Tobacco Use Types Packs/Day [...] documented in this encounter Progress Notes * Zachery Walters MD - 07/23/2012 1402 EST This office note has been dictated. documented in this encounter Procedure Notes * ENGINE LATHE TENDER, SCAN 2 - 07/28/2012 1044 ESTAssociated Order(s): PATHOLOGY - SCANNED * ENGINE LATHE TENDER, SCAN 2 - 07/28/2012 1044 ESTAssociated Order(s): PATHOLOGY - SCANNED documented in this encounter Consult Notes * Zachery Walters MD - 07/28/2012 1214 EST NEUROLOGY HEALTH CARE SERVICE CONSULTATION - 07/23/2012 PROBLEM 4: Numbness and tingling in feet. PROBLEM 5: Neck and right arm pain with right index, middle fingers and thumb numbness and tingling. 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 Dr Herrera of [facility] in [place], [place] is her family physician. She attended [...] she has seen a headache specialist at [facility]; lumbar radiculopathy, and tarsal tunnel syndrome. PAST SURGICAL HISTORY: Lumbar partial diskectomy at L5-S1 by Dr Bowers at [facility] many years ago for leg pain that was unhelpful; cholecystectomy in 1992, tubal ligationin 1992, second surgery on the back by Dr Kj Child for fusion of L5 and S1 with improvement ofleg pain and some improvement of back pain and this was done about 6 years ago; tarsal tunnel syndrome surgery done on right foot by Dr Keys about 7 months ago. REVIEW OF SYSTEMS: A 15-point review of systems was undertaken as documented in the patient's chart, and this was significant for some pain in [...] up 4 years ago. Does not drink alcohol, has two cups of coffee and 2 liters of diet soda to drink in a day. She is high school educated, works as a cashier supervisor, lives with her boyfriend and children and [...] bipolar disease and daughter Valente age 14, has depression. OBJECTIVE: Overweight, well-dressed, undistressed female whose blood [...] and oriented with reasonably good fund of knowledge, memory, recall, calculations, abstractability, judgment, comprehension, speech and [...] of right upper extremity was compounded by painlimitation and thus incomplete effort. Reflexes were 1+ in the right upper extremity, 2+ elsewhere in the limbs except for 1+ at ankles and the plantars were flexor. Sensory examination showed a glove and stocking diminution of cold up to the metacarpophalangeal joints and ankles; vibration was impaired at the right index finger at 17 seconds and middle finger at7 seconds, but was normal in the feet; position sensation was normal. Coordination testing showed no ataxia in the limbs. Stance was wide-based because of her habitus and Romberg sign was negative. Casual gait was unremarkable. She could walk on her toes, but refused to walk on her heels and could walk in tandem fashion. LABORATORY DATA: Lab testing was available only from 2006 that showed serum glucose 91, electrolytes normal, creatinine 0.71, BUN 8, hemogram and differential showed a mild anemia. ASSESSMENT: Her problems appear to be largely two: Neck pain and right arm pain that could be on the basis of a cervical radiculopathy due to degenerative [...] Zachery Walters MD - MS Job ID: Doc ID: [id number] Ext Doc ID: [id number] cc: MD Dr Javier Guzman* documented in this encounter Plan of Treatment Upcoming Encounters Date Type Department Care Team (Late st Contact Info) Description 04/27/2024 14:30 EDT Telemedicine [facility] Neurology - S [place] [address] [place], [place] [phone] Kj Gloria MD PhD 1 [facility], Level 2 [place] [phone] 04/30/2024 9:30 EDT Office Visit [facility] Interventional Pain 62 [facility] [place], [place] [phone] Catalino Garrett MD 62 [facility] [address] [place] [address] 09/18/2024 11:00 EST Office Visit [facility] Bariatric Surgery - [place] [address] [place], [place] [address] Allen Thompson PA-C 111 [facility], Level 5 [place] [phone] documented as of this encounter Procedures Procedure Name Priority Date/Time Associated Diagnosis Comments PATHOLOGY - SCANNED 07/28/2012 1 0:44 EST PATHOLOGY - SCANNED 07/28/2012 1 0:44 EST documented in this encounter Results * PATHOLOGY - SCANNED (07/28/2012 10:44 EST) 07/28/2012 10:4 4 EST Narrative 07/28/2012 11:09 EST Procedure Note ENGINE LATHE TENDER, SCAN 2 - 07/28/2012 10:44 EST Scan 2 Buckle Attaching Machine Operator LAB INFO SERVICE AN D SUPPORT & PHONE RESULT * PATHOLOGY - SCANNED (07/28/2012 10:44 EST) 07/28/2012 10:4 4 EST Narrative 07/28/2012 11:09 EST Procedure Note ENGINE LATHE TENDER, SCAN 2 - 07/28/2012 10:44 EST Scan 2 Buckle Attaching Machine Operator LAB INFO SERVICE AN D SUPPORT & PHONE RESULT * T3, TOTAL (07/23/2012 14:19 EST) T3, Total 112 60 - 181 ng/dL [facility] Blood specimen (specimen) 07/23/2012 14:19 EST 07/23/2012 15:53 EST Zachery Walters MD CHEMISTRY & BLOOD GA S ORDERABLES Performing Organization Address [facility] Co de Phone Number [facility] [address] [place] [address] * TSH (07/23/2012 14:19 EST) Pathologist [facility] TSH 0.93 0.35 - 5.00 uIU/ml [facility] Blood specimen (specimen) 07/23/2012 14:19 EST 07/23/2012 15:53 EST Zachery Walters MD CHEMISTRY & BLOOD GA S ORDERABLES Performing Organization Address [facility] Co de Phone Number [facility] [address] [place] [address] * T4 FREE (07/23/2012 14:19 EST) Free T4 1.0 0.8 - 1.8 ng/dL [facility] Blood specimen (specimen) 07/23/2012 14:19 EST 07/23/2012 15:53 EST Zachery Walters MD CHEMISTRY & BLOOD GA S ORDERABLES Performing Organization Address [facility] Co de Phone Number [facility] [address] [place] [address] * HEMOGLOBIN A1C (07/23/2012 14:19 EST) Hemoglobin A1C 5.2 % JERMAINE DANG Comment: Reference Range: <5.7% Normal 5.7-6.4% Increased risk for diabetes =>6.5% Diagnostic for diabetes (if confirmed) The A1c goal for non adults in general is <7%. The A1c goal for selected patients may be significantly lower than 7% if this can be achieved without significant hypoglycemia or other adverse effects of treatment. Est Avg Glucose 103 mg/dl KADIE DANG Comment: eAG represents the A1c result expressed as average glucose in mg/dl. Blood specimen (specimen) 07/23/2012 14:19 EST 07/23/2012 15:53 EST Zachery Walters MD CHEMISTRY & BLOOD GA S ORDERABLES Performing Organization Address [facility] de Phone Number [facility] [address] [place] [address] * FOLATE (07/23/2012 14:19 EST) Folate 8.7 ng/mL [facility] Comment: Deficient: ??Less than 3.4 ng/mL Indeterminate: ??3.4-5.4 ng/mL Normal: ??Greater than 5.4 ng/mL Blood specimen (specimen) 07/23/2012 14:19 EST 07/23/2012 15:53 EST Zachery Walters MD CHEMISTRY & BLOOD GA S ORDERABLES Performing Organization Address [facility] de Phone Number [facility] [address] [place] [address] * MONOCLONAL PROTEIN STUDY, URINE RANDOM (07/23/2012 14:19 EST) Tot Prot,Ur Random 10 mg/dl [facility] Albumin, Urine 29.1 % [facility] Globulins, Urine 70.9 % [facility] Comments Electrophoresis screening performed, immunofixation to follow. [facility] Immunofixatio n,Urine Interpretation: [facility]ONNA DANG Comment: Negative for free monoclonal light chains. Interpreted by: Raysa Rothman MD Reference Range: Negative for free monoclonal light chains. Urine specimen (specimen) URINE / Unknown 07/23/2012 14:19 EST 07/23/2012 15:49 EST Zachery Walters MD URINALYSIS ORDERABLE S Performing Organization Address [facility] Co de Phone Number [facility] [address] [place] [address] * IMMUNOFIXATION/SPEP (07/23/2012 14:19 EST) Total Protein 6.9 6.5 - 8.3 g/dl [facility] Albumin, SPEP 57.8 47.6 - 61.9 % [facility] Alpha-1 % 3.5 1.4 - 4.6 % [facility] Alpha 2, SPEP 11.0 7.3 - 13.9 % [facility] Beta, SPEP 15.8 10.9 - 19.1 % [facility] Gamma, SPEP 11.9 9.5 - 24.8 % [facility] Comments, SPEP No apparent monoclonal protein [facility] Comment: on serum electrophoresis. See Pathology Scanned Report in PRISM. Immunofixation ,serum Interpretation : [facility] Comment: Negative for monoclonal immunoglobulins. Interpreted by: Raysa Rothman MD Reference Range: Negative for monoclonal immunoglobulins. Blood specimen (specimen) 07/23/2012 14:19 EST 07/23/2012 15:53 EST Zachery Walters MD CHEMISTRY & BLOOD GA S ORDERABLES Performing Organization Address [facility] Co de Phone Number [facility] [address] [place] [address] * PYRIDOXAL 5 PHOSPHATE (PLP), PLASMA (07/23/2012 14:19 EST) Pyridoxal 5 Phosphate 7 5 - 50 mcg/L [facility] Comment: Performed by: [facility] [place], [address], [place] [address], Twister Operator: Yoly Nobles, Ph.D. Blood specimen (specimen) 07/23/2012 14:19 EST 07/23/2012 15:53 EST Zachery Walters MD CHEMISTRY & BLOOD GA S ORDERABLES Performing Organization Address City/[facility]/ZIP Co de Phone Number [facility] [address] [place] [address] * THIAMIN (VITAMIN B1), WB (07/23/2012 14:19 EST) Pathologist [facility] Thiamin (Vit B1), WB 119 70 - 180 nmol/L [facility] Comment: Performed by: [facility], [address], [place] [address], Twister Operator: Yoly Nobles, Ph.D. Blood specimen (specimen) 07/23/2012 14:19 EST 07/23/2012 15:53 EST Zachery Walters MD CHEMISTRY & BLOOD GA S ORDERABLES Performing Organization Address [facility] Co de Phone Number [facility] [address] [place] [address] * VITAMIN B12 (07/23/2012 14:19 EST) Pathologist [facility] Vitamin B-12 444 211 - 911 pg/ml [facility] Blood specimen (specimen) 07/23/2012 14:19 EST 07/23/2012 15:53 EST Zachery Walters MD CHEMISTRY & BLOOD GA S ORDERABLES Performing Organization Address [facility] Co de Phone Number [facility] [address] [place] [address] * SED. RATE:AMARJIT (07/23/2012 14:19 EST) Pathologist [facility] Sed. Rate Westergren 14 0 - 20 mm/hr [facility] Blood specimen (specimen) 07/23/2012 14:19 EST 07/23/2012 15:53 EST Zachery Walters MD HEMATOLOGY & PF4 ORD ERABLES Performing Organization Address City/[facility] Co de Phone Number [facility] [address] [place] [address] * (ABNORMAL) C-REACTIVE PROTEIN (07/23/2012 14:19 EST) Pathologist [facility] C-Reactive Protein 1.3(H) <1.0 mg/dl [facility] Blood specimen (specimen) 07/23/2012 14:19 EST 07/23/2012 15:53 EST Zachery Walters MD CHEMISTRY & BLOOD GA S ORDERABLES Performing Organization Address City/[facility]/ZIP Co de Phone Number [facility] [address] [place] [address] * COMPREHENSIVE METABOLIC PANEL (CMP) (07/23/2012 14:19 EST) Pathologist [facility] Potassium 3.7 3.5 - 5.0 mEq/L [facility] Sodium 139 136 - 145 mEq/L [facility] Chloride 106 96 - 110 mEq/L [facility] CO2 24 24 - 32 mEq/L [facility] Total Alkaline Phosphatase 65 38 - 126 U/L [facility] Bilirubin, Total <0.5 0.2 - 1.3 mg/dl [facility] AST 17 15 - 46 U/L [facility] ALT 30 9 - 52 U/L [facility] Albumin 4.2 3.4 - 4.9 g/dl [facility] Total Protein 6.9 6.5 - 8.3 g/dl [facility] Creatinine 0.78 0.52 - 1.04 mg/dl [facility] GFR, Calculated >60 >60 ml/min/1.7 3m2 [facility] BUN 12 10 - 26 mg/dl [facility] Calcium 9.4 8.5 - 10.5 mg/dl [facility] Calculated Calcium 9.6 8.5 - 10.5 mg/dl [facility] Glucose, Serum 77 70 - 100 mg/dl [facility] Fasting? Unknown [facility] Blood specimen (specimen) 07/23/2012 14:19 EST 07/23/2012 15:53 EST Zachery Walters MD CHEMISTRY & BLOOD GA S ORDERABLES Performing Organization Address [facility]/ZIP Co de Phone Number [facility] [address] [place] [id number] documented in this encounter Visit Diagnoses Diagnosis Numbness and tingling Disturbance of skin sensation Pain, arm, right Pain in limb documented in this encounter Historical Medications * This list may reflect changes made after this encounter. Medication Sig Dispensed Refills Start Date End Date duloxetine (CYMBALTA) 30 mg capsule Take 30 mg by mouth 2 times daily. 09/22/2012 pregabalin (LYRICA) 50 mg capsule Take by mouth. 2 tabs am, 2 tab mid day, 2 tabs pm 08/21/2012 added in this encounter Care Teams Electric Truck Operator Relationship Specialty Start Date End Date Donna Mohr NP [facility] [address] [address] PCP - General 10/24/11 09/24/12 documented as of this encounter
--- OUTSIDE RECORDS SUMMARY | 2024-04-22 23:52 | XMS_ITS | Encounter Summary ---
Author Organization [facility] Address [address] [place] [address] Care Team Providers Care Assembler Steam And Gas Turbine Name Role Phone RosibeljonathaneverardoDonna GIULIA Primary Care Provider [phone] Reason for Visit * Reason Comments Neck Pain Arm Pain right Encounter Details Date Type Department Care Team (Latest Contact Info) Description 06/13/2012 9:30 EDT Office Visit [facility] Interventional Pain [address] [place], [place] [phone] [place] [address] [place] [address] Cervical radiculopathy (Primary Dx); Cervical disc herniation Social History Tobacco Use Types Packs/Day Years [...] this encounter Patient Instructions * Patient Instructions* Yamilka Macario - 06/13/2012 9:47 EDT [facility] [address] [address] Patient Instructions You have had your cervical [...] encounter Progress Notes * Kavon Butler - 06/13/2012 0943 EDT Patient Name: Tia Spain : 1975 Date of Service: 06/13/2012 Bottom Scrubber: Kavon Butler MD Interval History: Ms. Spain presents at the request of Starr AVILA for evaluation and treatment of her chronic neck pain and arm pain. The pain is primarily localized to the right neck and radiates down the right posterior arm and ulnar forearm to end in her 3 and 4th finger.. This neck pain has been present for about 2 yeas, but this arm pain has been present for 3 month(s) and is described as dull, throbbing and pins and needles in character. [...] (98.3 ??F) (Tympanic) Resp 12 Ht 172.7 cm (68) Wt 134.265 kg (296 lb) BMI 45.01 kg/m2 Patient is alert, oriented x 3 and conversant. Able to stand and ambulate without difficulty. Gait is normal Cardiac reveal regular rate and rhythm. Lungs are clear to auscultation. Cervical spine is tender to palpation over the right trapezius area Examination of the upper extremities reveal decreased cattle manager strength on the right and right triceps [...] epidural steroid injection in the spine. The patientwas then placed in the prone position, the [...] with the patient prior to discharge. * Tricia Oreilly - 06/13/2012 0900 EDT [facility] Rooming Note Does patient have a Medical Bill Processor? yes Is patient NPO? (Solids since midnight [...] Other: documented in this encounter Miscellaneous Notes * Scanned Note-Null - CHEMICAL DEPENDENCY COUNSELOR, SCAN 2 - 06/13/2012 1204 EDT documented in this encounter Plan of Treatment Upcoming Encounters Date Type Department Care Team (Late st Contact Info) Description 04/27/2024 14:30 EDT Telemedicine [facility] Neurology - [address] [phone] Kj Gloria MD PhD 1 [facility], Level 2 [place] [phone] 04/30/2024 9:30 EDT Office Visit [facility] Interventional Pain [address] [place] [address] Catalino Garrett MD 62 [facility] [address] [place] [address] 09/18/2024 11:00 EST Office Visit [facility] Bariatric Surgery - [place] [address] [place], [place] [address] Allen Thompson, ELISABETH 111 [facility], [address] [place] [phone] documented as of this encounter Visit Diagnoses Diagnosis Cervical radiculopathy- Primary Brachial neuritis or radiculitis nos Cervical disc herniation Displacement of cervical intervertebral disc without myelopathy documented in this encounter Care Teams Assembler Steam And Gas Turbine Relationship Specialty Start Date End Date Donna Mohr NP [address] [facility] [facility] [address] PCP - General 10/24/11 09/24/12 documented as of this encounter
--- OUTSIDE RECORDS SUMMARY | 2024-04-22 23:52 | XMS_ITS | Encounter Summary ---
Author Organization [facility] Address [address] [place] [address] Care Team Providers Care Senior Operations Manager Name Role Phone Donna Mohr GIULIA Primary Care Provider [phone] Encounter Details Date Type Department Care Team (Late st Contact Info) Description 05/02/2012 Results Only Imaging [facility] Spine Program - [place] [address] [place] [address] Starr Hart PA-C Social History [...] Info) Description 04/27/2024 14:30 EDT Telemedicine [facility] Neurology - S [address] [phone] Kj Gloria MD PhD 1 [facility], Level 2 [place] [address] 04/30/2024 9:30 EDT Office Visit [facility] Interventional Pain [address] [place] [address] Catalino Garrett MD 62 [facility] [address] [place] [address] 09/18/2024 11:00 EST Office Visit [facility] Bariatric Surgery - [place] [address] [place] [address] Allen Thompson PALizettC 111 [facility] [address] [place] [address] Pending Results Name Type Priority Associated Diagnoses Date /Time OUTSIDE CD - MRI NEURO Imaging 11:49 EDT OUTSIDE CD - MRI NEURO Imaging 11:49 EDT OUTSIDE CD - MRI NEURO Imaging 12:03 EDT documented as of this encounter Visit Diagnoses Not on filedocumented in this encounter Care Teams Senior Operations Manager Relationship Specialty Start Date End Date Donna Mohr [place] [address] [place] [address] PCP - General 10/24/11 09/24/12 documented as of this encounter
--- OUTSIDE RECORDS SUMMARY | 2024-04-22 23:52 | XMS_ITS | Encounter Summary ---
Author Organization [facility] Address [address] [place] [address] Care Team Providers Care Batter Mixer Helper Name Role Phone Juma Herrera MD Primary Care Provider [phone] Reason for Visit * Reason Onset Date Comments Appointment Related 09/25/2012 Encounter Details Date Type Department Care Team (Late st Contact Info) Description 09/25/2012 Telephone [facility] Spine Program - [address] [place], [place] [phone] Becki Rea RN [address] [place] [address] Appointment Related Social History Tobacco Use Types [...] for surgery. Reminded pt to have nothing to eat or drink after midnight, to wash with the brushes the night before surgery and the morning of surgery. Becki Rea RN documented in this encounter Plan of Treatment Upcoming Encounters Date Type Department Care Team (Late st Contact Info) Description 04/27/2024 14:30 EDT Telemedicine [facility] Neurology - S [place] [address] [place], [place] [address] Kj Gloria MD PhD 1 [facility], Level [address] [place] [phone] 04/30/2024 9:30 EDT Office Visit [facility] Interventional Pain [address] [place], [place] [phone] Catalino Garrett MD [address] [facility] [address] [place] [address] 09/18/2024 11:00 EST Office Visit [facility] Bariatric Surgery [facility] [address] [place], [place] [address] Allen Thompson, MARGARITA-C 111 [facility], [address] [place] [phone] documented as of this encounter Visit Diagnoses Not on filedocumented in this encounter Care Teams Batter Mixer Helper Relationship Specialty Start Date End Date Juma Herrera MD [address] [facility] [place] [phone] PCP - General 09/25/12 12/07/18 documented as of this encounter
--- OUTSIDE RECORDS SUMMARY | 2024-04-22 23:52 | XMS_ITS | Encounter Summary ---
Author Organization [facility] Address [address] [place] [address] Care Team Providers Care Bone Worker Name Role Phone Donna Mohr NP Primary Care Provider [phone] Reason for Referral * Radiology Services (Routine/Next Available) - Closed Specialty Diagnoses / Procedures Referred By Contmarco a t Referred To Contact Diagnoses Foot pain Procedures FOOT 3 OR MORE VIEWS Catalino Keys MD [address] [place] [phone] Referral ID Status Reason Start Date Expiration Date Visits Re quested Visits Authorized [id number] Closed 01/21/2012 1 1 Reason for Visit * Reason Comments Follow-up Persistent pain s/p right tarsal tunnel release Encounter Details Date Type Department Care Team (Late st Contact Info) Description 01/21/2012 13:15 EDT Office Visit [facility] Foot & Ankle Program - [place] [address] [place] [address] Catalino Keys MD [address] [place] [phone] Tarsal tunnel syndrome of right side; Lumbar radiculopathy; Foot pain Social History Tobacco Use Types Packs/Day [...] of this encounter Progress Notes * Catalino Keys MD - 01/21/2012 5206 EDT Diagnosis: 1. Tarsal tunnel syndrome of [...] a little less than 3 months out froma right tarsal tunnel release and when she has been back at work she has had after a couple of hours significant swelling, pain and burning in her entire right foot. This has been getting worse the more she works. She is also beginning to have [...] negative percussion sign in the tarsal tunnel butdoes have tenderness over the first and second TMT joints. Swelling: right: Moderate over the tarsal tunnel Imaging: Foot, bilateral, standing yes, result (on independent viewing and evaluation) very mild djd in the Lisfranc joints bilaterally - essentially normal [...] symptomatology. To better address both sets of issues, will put her into bilateral walking boots to [...] Mohr documented in this encounter Procedure Notes * EDUCATION MANAGER, SCAN 2 - 03/31/2012 1004 EDTAssociated Order(s): ORDERS - SCANNED documented in this encounter Plan of Treatment Upcoming Encounters Date Type Department Care Team (Late st Contact Info) Description 04/27/2024 14:30 EDT Telemedicine [facility] Neurology - [address] [place] [address] [place], [place] [address] Kj Gloria MD PhD 1 [facility] [employer], Level 2 [place] [phone] 04/30/2024 9:30 EDT Office Visit [facility] Interventional Pain [address] [place], [place] [phone] Catalino aGrrett MD [address] [place] [address] 09/18/2024 11:00 EST Office Visit [facility] Bariatric Surgery - [place] [address] [place], [place] [address] Allen Thompson PA-C 111 [facility], Level 5 [place] [phone] documented as of this encounter Procedures Procedure Name Priority Date/Time Associated Diagnosis Comments ORDERS - SCANNED 03/31/2012 10:0 4 EDT FOOT 3 OR MORE VIEWS Routine 01/21/2012 14:13 EDT Foot pain documented in this encounter Results * ORDERS - SCANNED (03/31/2012 10:04 EDT) 03/31/2012 10:0 4 EDT Narrative Transcriptions EDUCATION MANAGER, SCAN 2 - 03/31/2012 10:04 EDT Scan 2 Oil Plant Operator ADMISSION ORDERABLE S * FOOT 3 OR MORE VIEWS (01/21/2012 14:13 EDT) Anatomical Region Laterality Modality Other 01/21/2012 14:1 3 EDT 01/22/2012 15:26 EDT Narrative 01/22/2012 15:26 EDT FOOT 3 OR MORE VIEWS ??January 21, 2012 02:13:00 PM Signs and Symptoms: ??729.5-PAIN IN EFAY-EIT-4-CM assess for midfoot DJD Comparison: 06/18/2011 Findings: Three weight-bearing views of both the left and right foot were obtained. On the right no acute fracture is identified. Alignment is anatomic. There are very mild degenerative changes at the ankle, posterior subtalar joint, Chopart and Lisfranc joints and to an even lesser extent at the interphalangeal joints. There is enthesopathic spurring at the calcaneus at the insertion of the Achilles tendon and plantar aponeurosis. There is a bipartite tibial sesamoid bone at the hallucal sesamoidal complex. This is unchanged compared to comparison radiograph. There is an os trigonum. The soft tissues are unremarkable. On the left as on the right there are mild degenerative changes seen throughout the ankle and foot. Alignment is anatomic. There is enthesopathic spurring at the calcaneus at the insertion of the Achilles tendon and plantar aponeurosis. This is less pronounced when compared to the right. There is an os trigonum. Soft tissues are normal. Impression: Mild degenerative and enthesopathic changes at the foot as above. No fracture. Normal alignment. Procedure Note 01/22/2012 FOOT 3 OR MORE VIEWS January 21, 2012 02:13:00 PM Signs and Symptoms: 729.5-PAIN IN SXBP-SAX-3-CM assess for midfoot DJD Comparison: 06/18/2011 Findings: Three weight-bearing views of both the left and right foot were obtained. On the right no acute fracture is identified. Alignment is anatomic. There are very mild degenerative changes at the ankle, posterior subtalar joint, Chopart and Lisfranc joints and to an even lesser extent at the interphalangeal joints. There is enthesopathic spurring at the calcaneus at the insertion of the Achilles tendon and plantar aponeurosis. There is a bipartite tibial sesamoid bone at the hallucal sesamoidal complex. This is unchanged compared to comparison radiograph. There is an os trigonum. The soft tissues are unremarkable. On the left as on the right there are mild degenerative changes seen throughout the ankle and foot. Alignment is anatomic. There is enthesopathic spurring at the calcaneus at the insertion of the Achilles tendon and plantar aponeurosis. This is less pronounced when compared to the right. There is an os trigonum. Soft tissues are normal. Impression: Mild degenerative and enthesopathic changes at the foot as above. No fracture. Normal alignment. Catalino Keys MD IMG DIAGNOSTIC IMAG ING ORDERABLES documented in this encounter Visit Diagnoses Diagnosis Tarsal tunnel syndrome of right side Tarsal tunnel syndrome Lumbar radiculopathy Thoracic or lumbosacral neuritis or radiculitis, unspecified Foot pain Pain in limb documented in this encounter Discontinued Medications Medication Sig Discontinue Reason Start Date End Da te hydrocodone-acetaminophe n (LORTAB) 7.5-500 mg per tabletIndications:Tarsal tunnel syndrome of right side Take 1 Tab by mouth every 4 hours as needed for Pain. 11/13/2011 01/21/2012 documented as of this encounter Historical Medications * This list may reflect changes made after this encounter. Medication Sig Dispensed Refills Start Date End Date ibuprofen (MOTRIN) 200 mg tablet Take 600 mg by mouth every 6 hours. 09/29/2012 added in this encounter Orders General Supply Count Last Ordered Date First Or dered Date AIRCAST SHORT WALKING BOOT (AIRCAST BOOT) 1 01/21/2012 documented in this encounter Care Teams Bone Worker Relationship Specialty Start Date End Date Donna Mohr [place] [address] [place] [address] PCP - General 10/24/11 09/24/12 documented as of this encounter
--- OUTSIDE RECORDS SUMMARY | 2024-04-22 23:52 | XMS_ITS | Encounter Summary ---
Author Organization [facility] Address [address] [place] [address] Care Team Providers Care Computer Engineering Professor Name Role Phone Donna Mohr NP Primary Care Provider [phone] Juma Herrera MD Primary Care Provider [phone] Reason for Visit * Reason Onset Date Comments Pre-procedure 08/21/2012 Encounter Details Date Type Department Care Team (Late st Contact Info) Description 08/21/2012 Pre-Procedure Orders Encounter [facility] Spine Program - [address] [place] [address] Becki Rea, RN [address] [place] [address] Cervicalgia (Primary Dx) Social History Tobacco Use [...] 14:30 EDT Telemedicine [facility] Neurology - [address] [phone] Kj Gloria MD PhD 1 [facility] 2 [place] [phone] 04/30/2024 9:30 EDT Office Visit [facility] Interventional Pain [address] [place], [place] [phone] Catalino [place] MD [address] [place] [address] 09/18/2024 11:00 EST Office Visit [facility] Bariatric Surgery - [place] [address] [place], [place] [phone] Allen Thompson, PA-C 111 [facility], Level 5 [place] [phone] documented as of this encounter Visit Diagnoses Diagnosis Cervicalgia- Primary documented in this encounter Care Teams Computer Engineering Professor Relationship Specialty Start Date End Date Donna Mohr NP [address] [place], [place] [address] PCP - General 10/24/11 09/24/12 Juma Herrera MD [address] [place] [phone] PCP - General 09/25/12 12/07/18 documented as of this encounter
--- OUTSIDE RECORDS SUMMARY | 2024-04-22 23:52 | XMS_ITS | Encounter Summary ---
Author Organization [facility] Address [address] [place] [address] Care Team Providers Care Wheat Washer Name Role Phone Donna Mohr NP Primary Care Provider [phone] Reason for Visit * Reason Onset Date Comments Medications Refill 08/21/2012 Encounter Details Date Type Department Care Team (Late st Contact Info) Description 08/21/2012 Refill [facility] Spine Program - [place] [address] [place] [address] Bee Jackson [address] [place] [address] Medications Refill Social History Tobacco Use Types [...] Dispensed Refills Start Date End Da te pregabalin (LYRICA) 50 mg capsule Take 2 Caps by mouth 3 times daily. 180 Cap 3 08/21/2012 documented in this encounter Miscellaneous Notes * Telephone Encounter - Starr Hart PA - 08/21/2012 7575 EST Patient would like a refill on her Lyrica. documented in this encounter Plan of Treatment Upcoming Encounters Date Type Department Care Team (Late st Contact Info) Description 04/27/2024 14:30 EDT Telemedicine [facility] Neurology - [address] [place] [address] [place], [place] [address] Kj Gloria MD PhD 1 [facility], Level 2 [place] [phone] 04/30/2024 9:30 EDT Office Visit [facility] Interventional Pain 62 [facility] [place], [place] [phone] Catalino [place] MD [address] [facility] [address] [facility] [address] [place] [phone] 09/18/2024 11:00 EST Office Visit [facility] Bariatric Surgery [facility] [address] [place], [place] [address] Allen Thompson PA-C 111 [facility], [facility], [address] [place] [phone] documented as of this encounter Visit Diagnoses Not on filedocumented in this encounter Discontinued Medications Medication Sig Discontinue Reason Start Date End Da te pregabalin (LYRICA) 50 mg capsule Take 1 Cap by mouth 3 times daily. Reorder 05/29/2012 08/21/2012 pregabalin (LYRICA) 50 mg capsule Take by mouth. 2 tabs am, 2 tab mid day, 2 tabs pm Reorder 08/21/2012 documented as of this encounter Care Teams Wheat Washer Relationship Specialty Start Date End Date Donna Mohr NP [address] [place] [address] PCP - General 10/24/11 09/24/12 documented as of this encounter
--- OUTSIDE RECORDS SUMMARY | 2024-04-22 23:52 | XMS_ITS | Encounter Summary ---
Author Organization [facility] Address [address] [place] [address] Care Team Providers Care Resin Shaver Name Role Phone Juma Herrera MD Primary Care Provider [phone] Reason for Referral * Radiology Services (Routine/Next Available) - Closed Specialty Diagnoses / Procedures Referred By Contmarco a mireles Referred To Contact Diagnoses Cervicalgia Procedures CERVICAL SPINE 2-3 VIEWS Kj Child MD [address] [place] [phone] Referral ID Status Reason Start Date Expiration Date Visits Re quested Visits Authorized [id number] Closed 10/14/2012 1 1 Reason for Visit * Reason Onset Date Comments Neck Pain 10/13/2012 Encounter Details Date Type Department Care Team (Late st Contact Info) Description 10/13/2012 Orders Only [facility] Spine Program - [place] [address] [place] [address] Kj Child MD [address] [place] [phone] Cervicalgia (Primary Dx) Social History Tobacco [...] EDT Telemedicine [facility] Neurology - [address] [place] [address] [place], [place] [address] Kj Gloria MD PhD 1 [facility], Level [address] [place] [phone] 04/30/2024 9:30 EDT Office Visit [facility] Interventional Pain [address] [place] [address] Catalino [place] MD 62 [facility] [address] [place] [phone] 09/18/2024 11:00 EST Office Visit [facility] Bariatric Surgery - [address] [address] Allen Thompson PA-C 111 [facility], [facility], Level [address] [place] [phone] documented as of this encounter Procedures Procedure Name Priority Date/Time Associated Diagnosis Comments CERVICAL SPINE 2-3 VIEWS Routine 10/21/2012 12:59 EST Cervicalgia documented in this encounter Results * CERVICAL SPINE 2-3 VIEWS (10/21/2012 12:59 EST) Anatomical Region Laterality Modality Other 10/21/2012 12:5 9 EST 10/21/2012 16:18 EST Narrative 10/21/2012 16:18 EST CERVICAL SPINE 2-3 VIEWS ??Oct 21, 2012 12:59:00 PM Clinical History/Comments: 723.0-Ksbvdzkkvab-LYI-9-CM; Neck Pain, status post C6-7 ACDF Comparison: 09/21/2012. Findings: 2 views of the cervical spine demonstrate anterior spinal fusion hardware transfixing C6 and C7. Interbody bone grafting material at the C6-C7 level appears to be in good position and there is early incorporation. Loss of the normal cervical lordosis is present at the C6 level. The levels above that demonstrate a slightly straightened cervical lordosis. Procedure Note 10/21/2012 CERVICAL SPINE 2-3 VIEWS Oct 21, 2012 12:59:00 PM Clinical History/Comments: 723.8-Tunrzsgveim-QCX-9-CM; Neck Pain, status post C6-7 ACDF Comparison: 09/21/2012. Findings: 2 views of the cervical spine demonstrate anterior spinal fusion hardware transfixing C6 and C7. Interbody bone grafting material at the C6-C7 level appears to be in good position and there is early incorporation. Loss of the normal cervical lordosis is present at the C6 level. The levels above that demonstrate a slightly straightened cervical lordosis. Kj Child MD IMG DIAGNOSTIC I MAGING ORDERABLES documented in this encounter Visit Diagnoses Diagnosis Cervicalgia- Primary documented in this encounter Care Teams Resin Shaver Relationship Specialty Start Date End Date Juma Herrera MD [address] [place] [phone] PCP - General 09/25/12 12/07/18 documented as of this encounter
--- OUTSIDE RECORDS SUMMARY | 2024-04-22 23:52 | XMS_ITS | Encounter Summary ---
Author Organization [facility] Address [address] [place] [address] Care Team Providers Care Reimbursement Manager Name Role Phone RosibelDonna barnes GIULIA Primary Care Provider [phone] Reason for Referral * Consult (Routine/Next Available) - Closed Specialty Diagnoses / Procedures Referred By Wili mireles Referred To Contact Pain Medicine Diagnoses Neck pain Cervical radiculopathy Starr Hart PA-C [address] [place] [address] [facility] [address] [place] [address] Referral ID Status Reason Start Date Expiration Date V isits Requested Visits Authorized [id number] Closed Specialty Services Required 05/01/2012 1 1 Question Answer Reason for Request: C7-T1 TLESI Reason for Visit * Reason Comments Neck Pain Arm Pain right Encounter Details Date Type Department Care Team (Latest Contact Info) Description 05/01/2012 9:30 EDT Office Visit [facility] Spine Program - [place] [address] Starr Hart PA-C Neck pain; Cervical radiculopathy Social History Tobacco Use Types [...] Dispensed Refills Start Date End Da te indomethacin (INDOCIN SR) 75 mg SR capsule Take 1 Cap by mouth daily. 30 Cap 2 05/01/2012 09/22/2012 documented in this encounter Progress Notes * Nena Bo - 05/01/2012 1401 EDT Patient is notified in office that she is scheduled for C7-T1 TLESI at [facility] on 06/13/12 to register at 9:15AM and follow up with MARGARITA Hylton 2 weeks after. Patient verbalized understanding. Patient Education Topic: Cervical TLESI Method: Handout and Verbal Taught to: Patient Barriers: None Outcomes: verbalized understanding Signature: Nena Bo 05/01/2012 14:02 * Starr Hart PA - 05/01/2012 1010 EDT Tia is [...] may be more occipital tension headaches. The numbness in the rest of the index finger and thumb has resolved. She currently rates her pain a 5/10. While she has had some relief, she is still quite uncomfortable. She is status post L5-S1 diskectomy and fusion by Dr Child in 2006. She has had steroid injectionsin her lower back and in her lower extremities without relief. She has not tried chiropractic manipulation, acupuncture or had any injections in her cervical spine. OBJECTIVE: Cervical MRI without contrast 03/28/2012: C5-6 small central disk herniation which indents the anterior thecal sac without significant neural foraminal stenosis. C6-C7, moderate right sizedparacentral foraminal disk herniation resulting in moderate right neural foraminal stenosis. ASSESSMENT AND PLAN: A 36-year-old female with continued discogenic myofascial cervicalgia and right cervical radiculopathy, mainly in a C7 distribution. She states that somehow her indomethacin was decreased. I am not sure who decreased her medication, but she would like to go back to taking 75 mgper day so I have written her a new prescription for this. She is currently taking Lyrica 50 mg 3 times a day, and she can continue with this. She should also continue with physical therapy focusing on cervical traction, massage, ultrasound and beginning some strengthening of her right upper extremity as she feels that her hand specifically is still weak. She also should use her TENS unit at home frequently. We discussed further options including epidural injections. She would like to proceed with this. I have scheduled her for at C7-T1 TLESI. We could also consider a right C6-C7 TFESI in thefuture if needed or surgical consults. She is in agreement with this plan. She will follow up 2 weeks after the injection has been completed and may perform all activities as tolerated. documented in this encounter Plan of Treatment Upcoming Encounters Date Type Department Care Team (Late st Contact Info) Description 04/27/2024 14:30 EDT Telemedicine [facility] Neurology - [address] [phone] Kj Gloria MD PhD 1 [facility], Level 2 [place] [phone] 04/30/2024 9:30 EDT Office Visit [facility] Interventional Pain [address] [place] [address] Catalino [place] MD 62 [facility] [address] [place] [address] 09/18/2024 11:00 EST Office Visit [facility] Bariatric Surgery - [place] [address] [place], [place] [address] Allen Thompson PA-C [address] [place] [address] [address] [place] [phone] Scheduled Referrals Name Type Priority Associated Diagnoses Orde r Schedule AMB CONSULT PAIN CLINIC Outpatient Referral Routine Neck pain Cervical radiculopathy Ordered: 05/01/2012 documented as of this encounter Visit Diagnoses Diagnosis Neck pain Cervicalgia Cervical radiculopathy Brachial neuritis or radiculitis nos documented in this encounter Care Teams Reimbursement Manager Relationship Specialty Start Date End Date Donna Mohr NP [address] [place] [address] PCP - General 10/24/11 09/24/12 documented as of this encounter
--- OUTSIDE RECORDS SUMMARY | 2024-04-22 23:52 | XMS_ITS | Encounter Summary ---
Author Organization [facility] Address [address] [place] [address] Care Team Providers Care Economics Department Chair Name Role Phone Donna Mohr NP Primary Care Provider [phone] Reason for Visit * Reason Onset Date Comments Advice Only 11/28/2011 Encounter Details Date Type Department Care Team (Late st Contact Info) Description 11/28/2011 Telephone [facility] Foot & Ankle Program - [address] [address] Catalino [place] MD [address] [place] [address] Advice Only Social History Tobacco Use Types [...] encounter Miscellaneous Notes * Telephone Encounter - Andrea Victor - 11/28/2011 1332 EDT Tia called to report that she is now wearing an Aircast walking boot that she obtained from a local medical supply vendor (regular boot style, comes all the way up to just below knee). She replaced her 3D walking boot, because it was too big when her swelling went down. She wanted to make sure this was adequate immobilization and I told her that it was comparable to the 3D boot and should workwell to support her ankle/ She is currently [...] Telemedicine [facility] Neurology - [address] [place] [address] [place], [place] [address] Kj Gloria MD PhD 1 [facility] Level 2 [place] [phone] 04/30/2024 9:30 EDT Office Visit [facility] Interventional Pain 62 [facility] [place] [address] Catalino [place] MD 62 [facility] [address] [place] [address] 09/18/2024 11:00 EST Office Visit [facility] Bariatric Surgery [facility] [address] [place], [place] [address] Allen Thompson, PA-C 111 [facility], [address] [place] [phone] documented as of this encounter Visit Diagnoses Not on filedocumented in this encounter Care Teams Economics Department Chair Relationship Specialty Start Date End Date Donna Mohr NP [address] [place] [address] PCP - General 10/24/11 09/24/12 documented as of this encounter
--- OUTSIDE RECORDS SUMMARY | 2024-04-22 23:52 | XMS_ITS | Encounter Summary ---
Author Organization [facility] Address [address] [place] [address] Care Team Providers Care Applications Scientist Name Role Phone Juma Herrera MD Primary Care Provider Encounter Details Date Type Department Care Team (Late st Contact Info) Description 09/25/2012 Orders Only [facility] Spine Program - [place] [address] [place] [address] Becki Rea, RN [address] [place] [address] Social History Tobacco Use Types Packs/Day Years [...] of this encounter Progress Notes * Becki Rea RN - 09/25/2012 1102 EST Surgical invasiveness index has been calculated by the attending surgeon. The total score is 6. Becki Rea RN documented in this encounter Plan of Treatment Upcoming Encounters Date Type Department Care Team (Late st Contact Info) Description 04/27/2024 14:30 EDT Telemedicine [facility] Neurology - S [address] [phone] Kj Gloria MD PhD [address] [place] [address] 2 [place] [phone] 04/30/2024 9:30 EDT Office Visit [facility] Interventional Pain [address] [place], [place] [phone] Catalino [place] MD [address] [facility] [address] [place] [address] 09/18/2024 11:00 EST Office Visit [facility] Bariatric Surgery - [place] [address] [place], [place] [address] Allen Thompson, PA-C [address] [place] [address], [address] [place] [phone] documented as of this encounter Visit Diagnoses Not on filedocumented in this encounter Care Teams Applications Scientist Relationship Specialty Start Date End Date Juma [place] MD [address] [place] [phone] PCP - General 09/25/12 12/07/18 documented as of this encounter
--- OUTSIDE RECORDS SUMMARY | 2024-04-22 23:52 | XMS_ITS | Encounter Summary ---
Author Organization [facility] Address [address] [place] [address] Care Team Providers Care Form Worker Name Role Phone Donna Mohr NP Primary Care Provider [phone] Reason for Referral * Radiology Services (Routine/Next Available) - Closed Specialty Diagnoses / Procedures Referred By Contmarco a t Referred To Contact Diagnoses Cervicalgia Procedures CERVICAL SPINE 4 OR MORE VIEWS Kj Child MD [address] [place] [phone] Referral ID Status Reason Start Date Expiration Date Visits Re quested Visits Authorized [id number] Closed 07/31/2012 1 1 Reason for Visit * Reason Onset Date Comments Neck Pain 07/31/2012 Encounter Details Date Type Department Care Team (Late st Contact Info) Description 07/31/[address] [facility] Spine Program - [place] [address] [place] [address] Kj Child MD [address] [place] [phone] Cervicalgia (Primary Dx) Social History Tobacco [...] [facility] Neurology - [place] 1 [place], [place] [address] Kj Gloria MD PhD 1 [facility], Level 2 [place] [phone] 04/30/2024 9:30 EDT Office Visit [facility] Interventional Pain [address] [place], [place] [phone] Catalino Garrett MD [address] [facility] [address] [place] [phone] 09/18/2024 11:[address] [facility] Bariatric Surgery - [place] [address] [place], [place] [address] Allen Thompson PA-C 111 [facility], [facility], Level 5 [place] [phone] documented as of this encounter Procedures Procedure Name Priority Date/Time Associated Diagnosis Comments CERVICAL SPINE 4 OR MORE VIEWS Routine 08/08/2012 10:36 EST Cervicalgia documented in this encounter Results * CERVICAL SPINE 4 OR MORE VIEWS (08/08/2012 10:36 EST) Anatomical Region Laterality Modality Other 08/08/2012 10:3 6 EST 08/08/2012 11:34 EST Narrative 08/08/2012 11:34 EST Plain film cervical spine History: Neck pain Findings: 4 views. There is no acute fracture of the cervical spine. There is focal mild reversal of the normal cervical lordosis from C5-C7. There is loss of normal intervertebral disc height at C6-C7 with marginal osteophyte formation. The prevertebral soft tissues are normal. The cranial cervical junction is normal. Flexion and extension views show no instability. Lung apices are clear. Conclusion: C6-C7 degenerative disc disease. No instability. Procedure Note 08/08/2012 Plain film cervical spine History: Neck pain Findings: 4 views. There is no acute fracture of the cervical spine. There is focal mild reversal of the normal cervical lordosis from C5-C7. There is loss of normal intervertebral disc height at C6-C7 with marginal osteophyte formation. The prevertebral soft tissues are normal. The cranial cervical junction is normal. Flexion and extension views show no instability. Lung apices are clear. Conclusion: C6-C7 degenerative disc disease. No instability. Kj Child MD IMG DIAGNOSTIC I MAGING ORDERABLES documented in this encounter Visit Diagnoses Diagnosis Cervicalgia- Primary documented in this encounter Care Teams Form Worker Relationship Specialty Start Date End Date Donna Mohr NP [address] [place] [address] PCP - General 10/24/11 09/24/12 documented as of this encounter
--- OUTSIDE RECORDS SUMMARY | 2024-04-22 23:52 | XMS_ITS | Encounter Summary ---
Author Organization [facility] Address [address] [place] [address] Care Team Providers Care Heat Sealing Machine Operator Name Role Phone Onur Donna PLATT Primary Care Provider [phone] Reason for Visit * Reason Comments Neck Pain Arm Pain right Encounter Details Date Type Department Care Team (Latest Contact Info) Description 07/03/2012 9:30 EDT Office Visit [facility] [place] [facility] Spine Program - [place] [address] Starr Hart PA-C Neck pain (Primary Dx); Cervical radiculopathy Discharge Disposition: Auto Discharge Social History Tobacco [...] - Weight 127.5 kg (281 lb) 07/03/2012 0929 EDT Height 172.7 cm (5' 8) 07/03/2012 0929 EDT Body Mass Index 42.73 07/03/2012 0929 EDT documented in this encounter Discharge Disposition Disposition Code Departure Means Destination Auto Discharge documented in this encounter Progress Notes * Starr Hart PA - 07/03/2012 1232 EDT Tia is a 37-year-old female who returns for followup. She had a C7-T1 TLESI 06/13. She notes that not much of her pain has changed at this point. The numbness that was affecting the left thumb andmiddle finger has resolved though the index finger [...] and overall this has been helpful for thediscomfort in her feet. She is status post the L5-S1 diskectomy and fusion by Dr Child in 2006. She has been doing physical therapy, which has focused on massage to loosen up the upper trapezius andperiscapular muscles as well as some upper extremity strengthening. She notes that this has createdsome additional soreness in her neck. For this problem, she has tried 7-day course of prednisone. Flexeril and Toradol. She tried gabapentin without significant relief. She notes that her right arm continues to feel weak and she does drop objects as a result of this. OBJECTIVE: Cervical MRI without contrast 03/28/2012 C5-6 small central disk herniation which indentsthe anterior thecal sac without significant foraminal stenosis. C6-C7 moderate right paracentral and foraminal disk herniation resulting in moderate right neural foraminal stenosis. ASSESSMENT AND PLAN: A 37-year-old female with diskogenic neck pain and right cervical radiculopathy in a C7 distribution. We discussed continuing with Lyrica and doubling up on her dose by 1 pill every 2 to 3 days as needed, maximum 100 mg 3 times a day. She should continue with physical therapy at this time and at this point, she would like a surgical consult with Dr Child. She will follow up with me as needed with activities as tolerated. I spent a total of 15 minutes of [id number] time with the patient today, 15 minutes of my time was spent counseling the patient with risks and treatment options for neck pain and cervical radiculopathy. documented in this encounter Plan of Treatment Upcoming Encounters Date Type Department Care Team (Late st Contact Info) Description 04/27/2024 14:30 EDT Telemedicine [facility] Neurology - [address] [place] 1 [place], [place] [address] Kj Gloria MD PhD 1 [facility], Level 2 [place] [phone] 04/30/2024 9:30 EDT Office Visit [facility] Interventional Pain [address] [place] [address] Catalino Garrett MD 62 [facility] [address] [place] [address] 09/18/2024 11:00 EST Office Visit [facility] [place] [facility] Bariatric Surgery [facility] [address] [place], [place] [address] Allen Thompson, PA-C 111 [facility], Level 5 [place] [phone] documented as of this encounter Visit Diagnoses Diagnosis Neck pain- Primary Cervicalgia Cervical radiculopathy Brachial neuritis or radiculitis nos documented in this encounter Care Teams Heat Sealing Machine Operator Relationship Specialty Start Date End Date Donna Mohr NP [address] [place] [address] PCP - General 10/24/11 09/24/12 documented as of this encounter
--- OUTSIDE RECORDS SUMMARY | 2024-04-22 23:52 | XMS_ITS | Encounter Summary ---
Author Organization [facility] Address [address] [place] [address] Care Team Providers Care Clam Picker Name Role Phone Donna Mohr GIULIA Primary Care Provider [phone] Encounter Details Date Type Department Care Team (Late Contact Info) Description 04/07/2012 Abstract [facility] Spine Program - [facility] [address] [place] [address] Starr Hart PA-C Social History [...] [facility] Neurology - [address] [place] 1 [place], [place] [address] Kj Gloria MD PhD 1 [facility], Level [address] [place] [phone] 04/30/2024 9:30 EDT Office Visit [facility] Interventional Pain [address] [place] [address] Catalino Garrett MD 62 [facility] [address] [place] [address] 09/18/2024 11:00 EST Office Visit [facility] Bariatric Surgery - [place] [address] [place], [place] [address] Allen Thompson, PA-C 111 [facility], [facility] 5 [place] [address] documented as of this encounter Visit Diagnoses Not on filedocumented in this encounter Care Teams Clam Picker Relationship Specialty Start Date End Date Donna Mohr NP [address] [place], [place] [phone] PCP - General 10/24/11 09/24/12 documented as of this encounter
--- OUTSIDE RECORDS SUMMARY | 2024-04-22 23:52 | XMS_ITS | Encounter Summary ---
Author Organization [facility] Address [address] [place] [address] Care Team Providers Care Vehicle Glass Technician Name Role Phone Donna Mohr NP Primary Care Provider Reason for Visit * Reason Comments Neck Pain Encounter Details Date Type Department Care Team (Late st Contact Info) Description 04/03/2012 15:00 EDT Office Visit [facility] Spine Program - [place] [address] Starr Hart PA-C Tarsal tunnel syndrome of right side; Idiopathic peripheral neuropathy Social History Tobacco Use Types Packs/Day Years [...] Start Date End Da te pregabalin (LYRICA) 25 mg capsuleIndications:Tarsal tunnel syndrome of right side,Idiopathic peripheral neuropathy Take 2 Caps by mouth 3 times daily. 60 Cap 2 04/03/2012 05/29/2012 documented in this encounter Progress Notes * Starr Hart, MARGARITA - 04/03/2012 1611 EDT [...] at worst a 10, and at best a7. She describes the pain as an aching, burning and stabbing sensation. Her pain is increased with any sort of cervical and right arm movement. She has been to 3 PT visits so far. She has not seen a chiropractor, done any acupuncture or had any injections in her cervical spine. She is status post an L5-S1 diskectomy and fusion by Dr Child in 2006. She continues to experiencesome back pain but states this is tolerable [...] the emergency department for this pain and wasgiven a shot of Toradol and Flexeril. She does note the Flexeril was helpful. Currently, she is taking Cymbalta and Lyrica 25 mg 3 times a [...] lateral forearm, right distal thumb, index finger, distal middle finger. Spurling's manuever elicits pain to the [...] female with discogenic cervicalgia and right cervical radiculopathy,likely in a C7 plus or minus C6 distribution. We discussed various treatment options, but given theamount of time that she has been experiencing this pain, a week and a half, I have advised that shecontinue with physical therapy and increase Lyrica to 50 mg 3 times a day. She can continue to increase this Lyrica to a maximum of 100 mg 3 times a day. I have given her an out of work note for the next week and she will call in a week so we can discuss her work status. I would like to see her back in 4 weeks to assess her progress. In the future, we could consider cervical epidural injections if needed. She does note, however, that lumbar injections were not helpful in the past. She was in agreement with this plan and will follow up in 4 weeks. She may perform all activities as tolerated atthis time. cc: The Patient Donna Mohr NP documented in this encounter Plan of Treatment Upcoming Encounters Date Type Department Care Team (Late st Contact Info) Description 04/27/2024 14:30 EDT Telemedicine [facility] Neurology - [facility] 1 [place], [place] [address] Kj Gloria MD PhD 1 [facility], Level 2 [place] [phone] 04/30/2024 9:30 EDT Office Visit [facility] Interventional Pain 62 [facility] [place], [place] [phone] Catalino Garrett MD 62 [facility] [address] [place] [phone] 09/18/2024 11:00 EST Office Visit [facility] Bariatric Surgery [facility] [address] [place], [place] [address] Allen Thompson, PA-C 111 [facility], Level 5 [place] [phone] documented as of this encounter Visit Diagnoses Diagnosis Tarsal tunnel syndrome of right side Tarsal tunnel syndrome Idiopathic peripheral neuropathy Unspecified hereditary and idiopathic peripheral neuropathy documented in this encounter Discontinued Medications Medication Sig Discontinue Reason Start Date End Da te pregabalin (LYRICA) 25 mg capsuleIndications:Tarsal tunnel syndrome of right side,Idiopathic peripheral neuropathy Take 1 Cap by mouth 3 times daily. Reorder 03/20/2012 04/03/2012 documented as of this encounter Care Teams Vehicle Glass Technician Relationship Specialty Start Date End Date Donna Mohr NP [address] [place] [address] PCP - General 10/24/11 09/24/12 documented as of this encounter
--- OUTSIDE RECORDS SUMMARY | 2024-04-22 23:52 | XMS_ITS | Encounter Summary ---
Author Organization [facility] Address [address] [place] [address] Care Team Providers Care Intake Specialist Name Role Phone Juma Herrera MD Primary Care Provider [phone] Reason for Visit * Reason Comments Neck Pain Encounter Details Date Type Department Care Team (Late st Contact Info) Description 10/21/2012 12:45 EST Office Visit [facility] Spine Program - [address] [place] [phone] Ana Rosa Mendoza MD [address] [place] [address] [place] [address] Cervicalgia (Primary Dx) Social History [...] Notes * Ana Rosa Mendoza MD - 10/23/2012 0620 EST Spine [place] [facility] (SpINE) Orthopaedics and Rehabilitation [address] [place] [address] PROGRESS/FOLLOWUP NOTE - 10/21/2012 PROBLEM: 1. 50% [...] followup, now 3 weeks postop, overall making appropriate progress. She feels ready to get back to [...] - AN Job ID: SM Doc ID: [id number] Ext Doc ID: [id number] cc: * Ana Rosa Mendoza MD - 10/21/2012 1400 EST This office note has been dictated. ANA ROSA MENDOZA MD documented in this encounter Plan of Treatment Upcoming Encounters Date Type Department Care Team (Late st Contact Info) Description 04/27/2024 14:30 EDT Telemedicine [facility] Neurology - [address] [place] 1 [place], [place] [address] Ana Rosa Gloria MD PhD 1 [facility], Level 2 [place] [address] 04/30/2024 9:30 EDT Office Visit [facility] - Interventional Pain [address] [place], [place] [phone] Catalino Garrett MD [address] [facility] [address] [place] [address] 09/18/2024 11:00 EST Office Visit [facility] Bariatric Surgery [place] [address] [place], [place] [phone] Allen Thompson PA-C 111 [facility] 5 [place] [address] documented as of this encounter Visit Diagnoses Diagnosis Cervicalgia- Primary documented in this encounter Care Teams Intake Specialist Relationship Specialty Start Date End Date Juma Herrera MD [address] [facility] [place] [address] PCP - General 09/25/12 12/07/18 documented as of this encounter
--- OUTSIDE RECORDS SUMMARY | 2024-04-22 23:52 | XMS_ITS | Encounter Summary ---
Author Organization [facility] Address [address] [place] [address] Care Team Providers Care Market Analyst Name Role Phone OnurDonna GIULIA Primary Care Provider [phone] Encounter Details Date Type Department Care Team (Late st Contact Info) Description 08/18/2012 Abstract [facility] [place] [facility] Rehabilitation Therapy - [address] [place] [address] Kj Child MD 192 [facility] [place] [address] Social History Tobacco Use Types [...] [facility] [place] [facility] - S [address] [phone] Kj Gloria MD PhD 1 [facility] 2 [place] [phone] 04/30/2024 9:30 EDT Office Visit [facility] Interventional Pain [address] [place], [place] [phone] Catalino Garrett MD 62 [facility] [address] [place] [address] 09/18/2024 11:00 EST Office Visit [facility] Bariatric Surgery - [place] [address] [place], [place] [address] Allen Thompson, PA-C 111 [facility] Level 5 [place] [phone] documented as of this encounter Visit Diagnoses Not on filedocumented in this encounter Care Teams Market Analyst Relationship Specialty Start Date End Date Donna Mohr NP [address] [place], [place] [phone] PCP - General 10/24/11 09/24/12 documented as of this encounter
--- OUTSIDE RECORDS SUMMARY | 2024-04-22 23:52 | XMS_ITS | Encounter Summary ---
Author Organization [facility] Address [address] [place] [address] Care Team Providers Care Ribbon Lapper Tender Name Role Phone Donna Mohr NP Primary Care Provider [phone] Encounter Details Date Type Department Care Team (Latest Contact Info) Description 08/07/2012 13:56 EST - 08/07/2012 23:59 EST Hospital Encounter [facility] Neurophysiology - [address] [phone] Unknown, Celio, Jordan Sainz MD Emg, MD Discharge Disposition: Home or Self Care Social [...] 650 mg by mouth as needed. 09/07/2015 duloxetine (CYMBALTA) 30 mg capsule Take 30 mg by mouth 2 times daily. 09/22/2012 ibuprofen (MOTRIN) 200 mg tablet Take 600 mg by mouth every 6 hours. 09/29/2012 indomethacin (INDOCIN SR) 75 mg SR capsule Take 1 Cap by mouth daily. 30 Cap 2 05/01/2012 09/22/2012 pregabalin (LYRICA) 50 mg capsule Take by mouth. 2 tabs am, 2 tab mid day, 2 tabs pm 08/21/2012 pregabalin (LYRICA) 50 mg capsule Take 1 Cap by mouth 3 times daily. 90 Cap 2 05/29/2012 08/21/2012 topiramate (TOPAMAX) 100 mg tablet Take 200 mg by mouth 2 times daily. 02/03/2015 documented as of this encounter Discharge Disposition Disposition Code Departure Means Destination Home or Self Alf documented in this encounter Procedure Notes * BOILER SHOP MECHANIC, SCAN 2 - 08/13/2012 7375 ESTAssociated Order(s): ELECTROMYOGRAM - SCANNED documented in this encounter Plan of Treatment Upcoming Encounters Date Type Department Care Team (Late st Contact Info) Description 04/27/2024 14:30 EDT Telemedicine [facility] Neurology - [address] [phone] Kj Gloria MD PhD 1 [facility] 2 [place] [phone] 04/30/2024 9:[address] [facility] Interventional Pain 62 [facility] [place], [place] [phone] Catalino Garrett MD 62 [facility] [address] [place] [address] 09/18/2024 11:00 EST Office Visit [facility] Bariatric Surgery - [place] [address] [place], [place] [address] Allen Thompson PA-C [address] [place] [address], Level [address] [place] [address] documented as of this encounter Procedures Procedure Name Priority Date/Time Associated Diagnosis Comments ELECTROMYOGRAM - SCANNED 08/13/2012 15:35 EST documented in this encounter Results * ELECTROMYOGRAM - SCANNED (08/13/2012 15:35 EST) 08/13/2012 15:3 5 EST Narrative 08/13/2012 15:36 EST Procedure Note BOILER SHOP MECHANIC, SCAN 2 - 08/13/2012 15:[address] PROCEDURE/MINOR LÓPEZ GICAL ORDERABLES documented in this encounter Visit Diagnoses Not on filedocumented in this encounter Care Teams Ribbon Lapper Tender Relationship Specialty Start Date End Date Donna Mohr [place] [address] PCP - General 10/24/11 09/24/12 documented as of this encounter
--- OUTSIDE RECORDS SUMMARY | 2024-04-22 23:52 | XMS_ITS | Encounter Summary ---
Author Organization [facility] Address [address] [place] [address] Care Team Providers Care Lining Printer Name Role Phone RosibelDonna barnes GIULIA Primary Care Provider [phone] Encounter Details Date Type Department Care Team (Late st Contact Info) Description 01/21/2012 Results Only Imaging [facility] Foot & Ankle Program - [facility] [address] [facility] [place] [address] Catalino Keys MD [address] [place] [address] Social History Tobacco Use Types [...] [facility] Neurology - S [address] [phone] Kj Gloria MD PhD [address] [place] [address] 2 [place] [phone] 04/30/2024 9:30 EDT Office Visit [facility] Interventional Pain [address] [place] [address] Catalino Garrett MD 62 [facility] [address] [place] [address] 09/18/2024 11:00 EST Office Visit [facility] Bariatric Surgery - [place] [address] [place] [address] Allen Thompson PA-C 111 [facility] [place] 5 [place] [phone] documented as of this encounter Procedures Procedure Name Priority Date/Time Associated Diagnosis Comments FOOT 3 OR MORE VIEWS 01/21/2012 14:13 EDT documented in this encounter Results * FOOT 3 OR MORE VIEWS (01/21/2012 14:13 EDT) Anatomical Region Laterality Modality Other 01/21/2012 14:1 3 EDT 01/22/2012 15:26 EDT Narrative 01/22/2012 15:26 EDT FOOT 3 OR MORE VIEWS ??January 21, 2012 02:13:00 PM Signs and Symptoms: ??729.5-PAIN IN [id number]-7-CM assess for midfoot DJD Comparison: 06/18/2011 Findings: [...] 02:13:00 PM Signs and Symptoms: 729.5-PAIN IN PFTT-TIO-1-CM assess for midfoot DJD Comparison: 06/18/2011 Findings: [...] as above. No fracture. Normal alignment. Catalino DEY DIAGNOSTIC IMAG ING ORDERABLES documented in this encounter Visit Diagnoses Not on filedocumented in this encounter Care Teams Lining Printer Relationship Specialty Start Date End Date Donna Mohr NP [address] [place] [address] PCP - General 10/24/11 09/24/12 documented as of this encounter
--- OUTSIDE RECORDS SUMMARY | 2024-04-22 23:52 | XMS_ITS | Encounter Summary ---
Author Organization [facility] Address [address] [place] [address] Care Team Providers Care Reiki Practitioner Name Role Phone RosibeljonathaneverardoDonna GIULIA Primary Care Provider [phone] Reason for Visit * Reason Onset Date Comments Advice Only 01/25/2012 Encounter Details Date Type Department Care Team (Late st Contact Info) Description 01/25/2012 Telephone [facility] Foot & Ankle Program - [address] [address] Gabriel Keys MD [address] [place] [address] Advice Only Social History Tobacco Use [...] encounter Miscellaneous Notes * Telephone Encounter - Gabriel Keys MD - 01/31/2012 0907 EDT NO. We'll see her as planned. GABRIEL KEYS MD * Telephone Encounter - Andrea Victor - 01/25/2012 0942 EDT Tia called today with questions about her treatment. She said she is concerned with the level ofpain she is having, considering her x-rays appeared normal. She is wondering if an MRI would be appropriate. Andrea Victor 01/25/2012 documented in this encounter Plan of Treatment Upcoming Encounters Date Type Department Care Team (Late st Contact Info) Description 04/27/2024 14:30 EDT Telemedicine [facility] Neurology - [address] [place] [address] [place], [place] [phone] Kj Gloria MD PhD 1 [facility] Level 2 [place] [phone] 04/30/2024 9:30 EDT Office Visit [facility] Interventional Pain 62 [facility] [place], [place] [phone] Gabriel Garrett MD 62 [facility] [address] [place] [address] 09/18/2024 11:00 EST Office Visit [facility] Bariatric Surgery - [place] [address] [place], [place] [address] Allen Thompson, MARGARITA-C 111 [facility], [address] [place] [phone] documented as of this encounter Visit Diagnoses Not on filedocumented in this encounter Care Teams Reiki Practitioner Relationship Specialty Start Date End Date Donna Mohr NP [address] [facility], [place] [address] PCP - General 10/24/11 09/24/12 documented as of this encounter
--- OUTSIDE RECORDS SUMMARY | 2024-04-22 23:52 | XMS_ITS | Encounter Summary ---
Author Organization [facility] Address [address] [place] [address] Care Team Providers Care Java Technical Architect Name Role Phone Juma Herrera MD Primary Care Provider [phone] Reason for Referral * Consult, Test and Treat (Routine/Next Available) - Closed Specialty Diagnoses / Procedures Referred By Wili mireles Referred To Contact Diagnoses Cervicalgia Kj Child MD [address] [place] [address] [place] [address] Referral ID Status Reason Start Date Expiration Date V isits Requested Visits Authorized [id number] Closed Specialty Services Required 10/01/2012 1 1 Question Answer Reason for Request: Post-op PT Surgery (and Date): 09/29/12 Comments S/p C6-7 ACDF/allog/plate Reason for Visit * Reason Onset Date Comments Referral Request 10/01/2012 Encounter Details Date Type Department Care Team (Late st Contact Info) Description 10/01/2012 Orders Only [facility] Spine Program - [address] [place] [address] Becki Rea, RN [address] [place] [address] Cervicalgia (Primary Dx) Social History Tobacco Use [...] Contact Info) Description 04/27/2024 14:30 EDT Telemedicine [facility] Neurology - [address] [place] [address] [place], [place] [address] Kj Gloria MD PhD 1 [facility], Level [address] [place] [phone] 04/30/2024 9:30 EDT Office Visit [facility] Interventional Pain [address] [place], [place] [phone] Catalino Garrett MD 62 [facility] [address] [place] [phone] 09/18/2024 11:00 EST Office Visit [facility] Bariatric Surgery [facility] [address] [place] [address] Allen Thompson, PA-C 111 [facility], [facility], Level [address] [place] [phone] Scheduled Referrals Name Type Priority Associated Diagnoses Orde r Schedule AMB CONSULT PHYSICAL THERAPY Outpatient Referral Routine Cervicalgia Ordered: 10/01/2012 documented as of this encounter Visit Diagnoses Diagnosis Cervicalgia- Primary documented in this encounter Care Teams Java Technical Architect Relationship Specialty Start Date End Date Juma Herrera MD [address] [facility] [place] [address] PCP - General 09/25/12 12/07/18 documented as of this encounter
--- OUTSIDE RECORDS SUMMARY | 2024-04-22 23:52 | XMS_ITS | Encounter Summary ---
Author Organization [facility] Address [address] [place] [address] Care Team Providers Care Cap Cutter Name Role Phone Donna Mohr NP Primary Care Provider Reason for Visit * Reason Onset Date Comments Appointment Related 04/02/2012 Encounter Details Date Type Department Care Team (Late st Contact Info) Description 04/02/2012 Telephone [facility] Foot & Ankle Program - [address] [address] Catalino Keys MD [address] [place] [address] Appointment Related Social History Tobacco Use [...] Miscellaneous Notes * Telephone Encounter - Eleonora Rolle - 04/02/2012 1507 EDT Called and L/M for Tia re: her upcoming Neurology consult. [facility] Eleonora Rolle 8.1.12 documented in this encounter Plan of Treatment Upcoming Encounters Date Type Department Care Team (Late st Contact Info) Description 04/27/2024 14:30 EDT Telemedicine [facility] Neurology - [address] [place] [address] [place], [place] [address] Kj Gloria MD PhD 1 [facility], Level 2 [place] [address] 04/30/2024 9:[address] [facility] Interventional Pain 62 [facility] [place], [place] [phone] Catalino Garrett MD [address] [facility] [address] [place] [address] 09/18/2024 11:00 EST Office Visit [facility] Bariatric Surgery - [address] [address] Allen Thompson PA-C 111 [facility], Level [address] [place] [phone] documented as of this encounter Visit Diagnoses Not on filedocumented in this encounter Care Teams Cap Cutter Relationship Specialty Start Date End Date Donna Mohr NP [address] [place], [place] [address] PCP - General 10/24/11 09/24/12 documented as of this encounter
--- OUTSIDE RECORDS SUMMARY | 2024-04-22 23:52 | XMS_ITS | Encounter Summary ---
Author Organization [facility] Address [address] [place] [address] Care Team Providers Care Mechanical Project Engineer Name Role Phone RosibelDonna barnes GIULIA Primary Care Provider [phone] Reason for Visit * Reason Comments Follow-up s/p right tarsal pasquale na release 10/31/11. Pain is at its worst when standing, improves slightly when walking (burning)/ twisted ankle in first week after surgery Encounter Details Date Type Department Care Team (Late st Contact Info) Description 12/17/2011 8:00 EDT Office Visit [facility] Foot & Ankle Program - [address] [address] Catalino Keys MD [address] [place] [address] Lumbar radiculopathy; Tarsal tunnel syndrome of right side Social History Tobacco Use Types Packs/Day Years [...] Dispensed Refills Start Date End Da te ibuprofen (MOTRIN) 600 mg tabletIndications:Lumbar radiculopathy,Tarsal tunnel syndrome of right side Take 1 Tab by mouth 3 times daily for 30 days. 90 Tab 3 12/17/2011 01/16/2012 documented in this encounter Progress Notes * Catalino Keys MD - 12/17/2011 0893 EDT Diagnosis: 1. Lumbar radiculopathy (724.4) ibuprofen [...] Telemedicine [facility] Neurology - [address] [id number] Kj Gloria MD PhD 1 [facility] Level 2 [place] [phone] 04/30/2024 9:30 EDT Office Visit [facility] Interventional Pain 62 [facility] [place], [place] [phone] Catalino Garrett MD 62 [facility] [address] [place] [address] 09/18/2024 11:00 EST Office Visit [facility] Bariatric Surgery - [place] [address] [place] [address] Allen Thompson PA-C 111 [facility], [address] [place] [phone] documented as of this encounter Visit Diagnoses Diagnosis Lumbar radiculopathy Thoracic or lumbosacral neuritis or radiculitis, unspecified Tarsal tunnel syndrome of right side Tarsal tunnel syndrome documented in this encounter Discontinued Medications Medication Sig Discontinue Reason Start Date End Da te oxycodone (ROXICODONE) 5 mg immediate release tablet Take 1-2 Tabs by mouth every 4 hours as needed for Pain. 10/31/2011 12/17/2011 ibuprofen (MOTRIN) 200 mg tablet 600 mg every 6 hours as needed. 12/17/2011 documented as of this encounter Care Teams Mechanical Project Engineer Relationship Specialty Start Date End Date Donna Mohr NP [address] [place] [address] PCP - General 10/24/11 09/24/12 documented as of this encounter
--- OUTSIDE RECORDS SUMMARY | 2024-04-22 23:52 | XMS_ITS | Encounter Summary ---
Author Organization [facility] Address [address] [place] [address] Care Team Providers Care Brownfield Redevelopment Site Manager Name Role Phone Juma Herrera MD Primary Care Provider [phone] Reason for Visit * Reason Onset Date Comments Post-OP Follow Up 10/01/2012 Encounter Details Date Type Department Care Team (Late st Contact Info) Description 10/01/2012 Telephone [facility] Spine Program - [address] [place] [address] Becki Rea, RN [address] [place] [address] Post-OP Follow Up Social History Tobacco Use Types Packs/Day Years [...] Telephone Encounter - Becki Rea RN - 10/01/2012 1413 EST S/p C6-7 ACDF/allog/plate. Pt c/o H/A, which she thinks is a migraine. She is currently taking tylenol and oxycodone. Instructed pt to call PCP if migraine does not get any better. Dressing to her neck was changed last night. No drainage or signs of infection. She is having some difficulty swallowing, but it seems to be getting better every day. Pt will call with any questions or concerns. documented in this encounter Plan of Treatment Upcoming Encounters Date Type Department Care Team (Late st Contact Info) Description 04/27/2024 14:30 EDT Telemedicine [facility] Neurology - [address] [place] [address] [place], [place] [address] Kj Gloria MD PhD 1 [facility], Level 2 [place] [phone] 04/30/2024 9:30 EDT Office Visit [facility] Interventional Pain 62 [facility] [place] [address] Catalino Garrett MD 62 [facility] [address] [place] [address] 09/18/2024 11:00 EST Office Visit [facility] Bariatric Surgery [facility] [address] [place], [place] [address] Allen Thompson, PA-C 111 [facility], [facility], Level [address] [place] [phone] documented as of this encounter Visit Diagnoses Not on filedocumented in this encounter Care Teams Brownfield Redevelopment Site Manager Relationship Specialty Start Date End Date Juma Herrera MD [address] [facility] [place] [address] PCP - General 09/25/12 12/07/18 documented as of this encounter
--- OUTSIDE RECORDS SUMMARY | 2024-04-22 23:52 | XMS_ITS | Encounter Summary ---
Author Organization [facility] Address [address] [place] [address] Care Team Providers Care Tier Lift Operator Name Role Phone Donna Mohr NP Primary Care Provider [phone] Reason for Visit * Reason Comments Leg Pain bilateral foot/ankle pain Encounter Details Date Type Department Care Team (Latest Contact Info) Description 03/06/2012 15:00 EDT Office Visit [facility] Hand & Upper Extremity Program - [address] [place], [place] [phone] Khris Barraza MD [address] [phone] Lumbar radiculopathy (Primary Dx); Multifactorial peripheral neuropathy; Tarsal tunnel syndrome of right side Social [...] documented in this encounter Progress Notes * Khris Barraza MD - 03/06/2012 1527 EDT This office note has been dictated. documented in this encounter Procedure Notes * Khris Barraza MD - 03/07/2012 0837 EDT [...] and is quite complicated from a pain perspective.Dr Keys has been seeing her for bilateral plantar [...] extremities, primarily in the calves, ankles and feet. She is here today for my evaluation [...] into her ankles, more so than into the feet. The edema is 1+ pitting. She has [...] remote and I do not think that this is active or a major cause of her pain. 2. She likely is developing an early peripheral neuropathy. Please see below for discussion. 3. She has not had a resolution of her right tarsal tunnel syndrome and continues to show a delay of the tibial nerve in that location. However, her left tibial nerve is substantially delayed as are bilateral peroneal motor and three sensory nerves, again, consistent with peripheral neuropathy. My i mpression is that, between the peripheral neuropathy and also what appears to be developing lymphedema, this is a very hostile environment for any nerve regrowth or recovery. The patient should have some laboratory testing completed both for lymphedema and to rule out metabolic causes of her peripheral neuropathy. With respect to the peripheral neuropathy, this includes the hemoglobin A1c, vitamin B12, B1, thiamine, etc. With respect to the lymphedema, her thyroid function should be checked as well as albumin, prealbumin, total protein. Despite her morbid obesity, she may be protein malnourished which can contribute to lymphedema, although she states that she eats meat essentially every day, at least to some extent. As mentioned above, this is clearly a complex situation. I had a lengthy discussion with the patient and her friend and all of their questions were answered. Electronically Signed by Khris Barraza MD 03/10/2012 14:01 Khris Barraza MD - Khris Barraza MD A - WP Job ID: SM Doc ID: [id number] Ext Doc ID: [id number] cc: Donna Mohr NP documented in this encounter Plan of Treatment Upcoming Encounters Date Type Department Care Team (Late st Contact Info) Description 04/27/2024 14:30 EDT Telemedicine [facility] Neurology - [address] [address] Kj Gloria MD PhD 1 [facility], Level [address] [place] [phone] 04/30/2024 9:30 EDT Office Visit [facility] Interventional Pain [address] [place] [address] Catalino Garrett MD 62 [facility] [address] [place] [address] 09/18/2024 11:00 EST Office Visit [facility] Bariatric Surgery - [place] [address] [place] [address] Allen Thompson PA-C 111 [facility], [facility], Level [address] [place] [phone] documented as of this encounter Visit Diagnoses Diagnosis Lumbar radiculopathy- Primary Thoracic or lumbosacral neuritis or radiculitis, unspecified Multifactorial peripheral neuropathy Unspecified hereditary and idiopathic peripheral neuropathy Tarsal tunnel syndrome of right side Tarsal tunnel syndrome documented in this encounter Care Teams Tier Lift Operator Relationship Specialty Start Date End Date Donna Mohr NP [address] [place] [address] PCP - General 10/24/11 09/24/12 documented as of this encounter
--- OUTSIDE RECORDS SUMMARY | 2024-04-22 23:52 | XMS_ITS | Encounter Summary ---
Author Organization [facility] Address [address] [place] [address] Care Team Providers Care Bottom Precipitator Operator Name Role Phone Donna Mohr NP Primary Care Provider [phone] Reason for Referral * Consult (Routine/Next Available) - Closed Specialty Diagnoses / Procedures Referred By Wili mireles Referred To Contact Neurology Diagnoses Idiopathic peripheral neuropathy Tarsal tunnel syndrome of right side Catalino Keys MD [address] [place] [phone] Referral ID Status Reason Start Date Expiration Date V isits Requested Visits Authorized [id number] Closed Specialty Services Required 03/20/2012 1 1 Question Answer Reason for Request: B/L LE pain with EMG proven neuropathy of unknown etiology. Please evaluate and treat Reason for Visit * Reason Comments Follow-up s/p tarsal tunnel re lease, right Encounter Details Date Type Department Care Team (Late st Contact Info) Description 03/20/2012 9:00 EDT Office Visit [facility] Foot & Ankle Program - [address] [facility] [place] [address] Catalino Keys MD [address] [place] [phone] Tarsal tunnel syndrome of right side; Idiopathic [...] te indomethacin (INDOCIN SR) 75 mg SR capsuleIndications:Tarsal tunnel syndrome of right side,Idiopathic peripheral neuropathy Take 1 Cap by mouth daily for 30 days. 30 Cap 0 03/20/2012 04/19/2012 pregabalin (LYRICA) 25 mg capsuleIndications:Tarsal tunnel syndrome of right side,Idiopathic peripheral neuropathy Take 1 Cap by mouth 3 times daily. 90 Cap 0 03/20/2012 04/03/2012 documented in this encounter Progress Notes * Catalino Keys MD - 03/20/2012 0952 EDT Diagnosis: 1. Tarsal tunnel syndrome of right side (355.5) pregabalin (LYRICA) 25 mg capsule, indomethacin (INDOCIN SR) 75 mg SR capsule, AMB CONSULT NEUROLOGY 2. Idiopathic peripheral neuropathy (356.9) pregabalin (LYRICA) 25 mg capsule, indomethacin (INDOCIN [...] (356.9) pregabalin (LYRICA) 25 mg capsule, indomethacin (INDOCIN [...] Contact Info) Description 04/27/2024 14:30 EDT Telemedicine [facility] Neurology - [address] [address] Kj Gloria MD PhD [address] [place] [address], Level [address] [place] [phone] 04/30/2024 9:30 EDT Office Visit [facility] Interventional Pain [address] [place], [place] [phone] Catalino Garrett MD [address] [facility] [address] [place] [address] 09/18/2024 11:00 EST Office Visit [facility] Bariatric Surgery [place] [address] [place], [place] [address] Allen Thompson PA-C 111 [facility], [facility] 5 [place] [phone] Scheduled Referrals Name Type Priority Associated Diagnoses Orde r Schedule AMB CONSULT NEUROLOGY Outpatient Referral Routine Idiopathic peripheral neuropathy Tarsal tunnel syndrome of right side Ordered: 03/20/2012 documented as of this encounter Visit Diagnoses Diagnosis Tarsal tunnel syndrome of right side Tarsal tunnel syndrome Idiopathic peripheral neuropathy Unspecified hereditary and idiopathic peripheral neuropathy documented in this encounter Discontinued Medications Medication Sig Discontinue Reason Start Date End Da te gabapentin (NEURONTIN) 100 mg capsule Take 300 mg by mouth 3 times daily. Therapy completed 03/20/2012 documented as of this encounter Care Teams Bottom Precipitator Operator Relationship Specialty Start Date End Date Donna Mohr NP [address] [place] [address] PCP - General 10/24/11 09/24/12 documented as of this encounter
--- OUTSIDE RECORDS SUMMARY | 2024-04-22 23:52 | XMS_ITS | Encounter Summary ---
Author Organization [facility] Address [address] [place] [address] Care Team Providers Care Clean Energy Policy Analyst Name Role Phone Donna Mohr NP Primary Care Provider [phone] Reason for Visit * Reason Comments Neck Pain Encounter Details Date Type Department Care Team (Late st Contact Info) Description 08/08/2012 10:30 EST Office Visit [facility] - [address] [place] [address] Ana Rosa Mendoza MD [address] [place], [place] [id number] [facility] [place] [address] Cervicalgia (Primary Dx) Discharge Disposition: Auto Discharge Social [...] documented in this encounter Progress Notes * Becki Rea RN - 08/08/2012 1432 EST Patient Education Topic: C6-7 ACDF/allog/plate Method: Handout and Demonstration Taught to: Patient and Family Barriers: None Outcomes: independent Signature:Becki Rea RN * Ana Rosa Mendoza MD - 08/08/2012 1223 EST This office note has been dictated. ANA ROSA MENDOZA MD documented in this encounter Procedure Notes * Jordan Sainz MD - 08/13/2012 0601 EST [facility] [address] [place] [address] ELECTRODIAGNOSTIC MEDICINE CONSULTATION SERVICE DATE: 08/08/2012 Dear [...] tibial motor conduction studies showed excellent amplitudes, distal latencies and conduction velocities. The right median and ulnar motor conduction studies showed excellent distal latencies, conduction velocities and amplitudes. F latencies were normal on the right peroneal, posterior tibial, median, and ulnar nerves. The right superficial peroneal, sural, median and ulnar sensory responses had normal latencies and amplitudes. The right median conduction study was done antidromically to the index finger. Needle examination performed in the right arm and right leg showed occasional fasciculations in thefirst dorsal interosseous pedis muscle of the right foot. No fibrillations were seen in any of the muscles tested. Voluntary motor unit potentials appeared to be mildly polyphasic and associated withslightly reduced recruitment in the right triceps. Extensor carpi ulnaris showed motor units that were slightly reduced in recruitment and demonstrated mildly increased duration with substantially increased polyphasia. The abductor hallucis, tibialis anterior, medial gastrocnemius, peroneus longus,biceps brachiae, pronator teres, abductor pollicis brevis muscles [...] likely, a proximal lesion of the right radialnerve. Finally, there is evidence of simple reinnervation in the first dorsal interosseous muscle of the right hand despite normal ulnar conductions and normal needle exam of the abductor pollicis brevis. This is a nonspecific finding, but could be consistent with an axonal right ulnar nerve lesionat an indeterminate site or a mild old [...] Sainz MD A - AN Job ID: Doc ID: [id number] Ext Doc ID: [id number] cc: documented in this encounter Consult Notes * Ana Rosa Mendoza MD - 08/11/2012 0749 EST [facility] [address] [place] [address] CONSULTATION - 08/08/2012 PROBLEM: 1. 60% neck, 40% right arm pain. a. C7 radiculopathy. b. 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 2. History of low back and right leg pain -- resolved. a. Status post L5-S1 diskectomy. b. L5 isthmic spondylolisthesis. c. L5-S1 decompression and fusion in 2006. 3. Obesity. 4. A [id number] smoking history. a. Smoking cessation 2008. 5. Bipolar disorder. 6. Posttraumatic stress disorder. 7. History of narcotic addiction. a. Sobriety x8 years. 8. History of migraines. 9. Tarsal tunnel syndrome. 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 She continues to work 20 hours a week,which she has done for several years, and notes over the last several years she has had some intermittent cervicothoracic discomfort and medial border of the scapula pain, which has been generally stephanie erable until 5 months ago when she had [...] no relief at all. She denies fevers, chi lls, night sweats, weight loss, or loss of bowel or [...] and children. She works 16 to 20 hours a week as a front window cashier. She is not smoking, having quit 3 years ago. OBJECTIVE: Cooperative and appropriate woman. Neck has a limited range of motion in extension because of significant neck pain and scapular pain associated with that, minimal discomfort with forward flexion. Sensation is intact to light touch. She has breakaway strength of multiple muscle groups inthe right arm but appears to be 5/5 [...] evidence of polyneuropathy, no lumbosacral radiculopathy. She does have a right C7 root lesion and some findings which would be consistent with a right C8 root involvement as well. ASSESSMENT: Woman with neck and right arm pain. Symptoms would be consistent with a C7 distribution, electrophysiologic evidence of a C7 radiculopathy. I discussed [...] of good relief of symptoms, 15% no change,1% or 2% worsened symptoms. Risks and complications including infection, DVT, pulmonary emboli, , neurologic loss, paralysis, pseudarthrosis, hardware failure or migration, increased neck pain, arm pain, swallowing difficulties and hoarseness, and blindness were all discussed. She understands these. We discussed hospital course and rehabilitation, and she wished to pursue surgical intervention after discussion with her friend. PLAN: C6-7 anterior cervical diskectomy and fusion with allograft and plate as an outpatient. Electronically Signed by Ana Rosa Mendoza MD 08/13/2012 08:14 Ana Rosa Mendoza MD - Ana Rosa Mendoza MD - Job ID: SM Doc ID: [id number] Ext Doc ID: [id number] cc: documented in this encounter Plan of Treatment Upcoming Encounters Date Type Department Care Team (Late st Contact Info) Description 04/27/2024 14:30 EDT Telemedicine [facility] - [address] [id number] Ana Rosa Gloria MD PhD 1 [facility] [address] [place] [phone] 04/30/2024 9:30 EDT Office Visit [facility] Inter[facility] Pain [address] [place] [address] Catalino Garrett MD [address] [facility] [address] [place] [address] 09/18/2024 11:00 EST Office Visit [facility] - [facility] [address] [place], [place] [address] Allen Thompson PA-C [address] [facility] [place] [address] documented as of this encounter Visit Diagnoses Diagnosis Cervicalgia- Primary documented in this encounter Care Teams Clean Energy Policy Analyst Relationship Specialty Start Date End Date Donna Mohr NP [address] [place], [place] [id number] PCP - General 10/24/11 09/24/12 documented as of this encounter
--- OUTSIDE RECORDS SUMMARY | 2024-04-22 23:52 | XMS_ITS | Encounter Summary ---
Author Organization [facility] Address [address] [place] [address] Care Team Providers Care Obstetrics Nurse Practitioner Name Role Phone Donna Mohr NP Primary Care Provider [phone] Encounter Details Date Type Department Care Team (Late st Contact Info) Description 11/26/2011 Orders Only [facility] Foot & Ankle Program - [facility] [address] [facility] [place] [address] Catalino Keys MD [address] [place] [address] Tarsal tunnel syndrome of right side (Primary Dx) Social History Tobacco Use Types [...] as of this encounter Progress Notes * Andrea Victor - 11/26/2011 5377 EDT Tia reports decreased swelling s/p surgery and she is finding her walking boot to be too large. She requests a prescription for a new, smaller walking boot. Andrea Victor 11/26/2011 documented in this encounter Plan of Treatment Upcoming Encounters Date Type Department Care Team (Late st Contact Info) Description 04/27/2024 14:30 EDT Telemedicine [facility] Neurology - [address] [place] [address] Kj Gloria MD PhD 1 [facility], [address] [place] [phone] 04/30/2024 9:30 EDT Office Visit [facility] Interventional Pain [address] [facility] [place], [place] [phone] Catalino Garrett MD [address] [facility] [address] [place] [phone] 09/18/2024 11:00 EST Office Visit [facility] Bariatric Surgery [facility] [address] [place], [place] [address] Allen Thompson PA-C [address] [facility], [address] [place] [phone] documented as of this encounter Visit Diagnoses Diagnosis Tarsal tunnel syndrome of right side- Primary Tarsal tunnel syndrome documented in this encounter Orders Equipment Count Last Ordered Date First Orde red Date GENERIC DME ORDER 1 11/27/2011 documented in this encounter Care Teams Obstetrics Nurse Practitioner Relationship Specialty Start Date End Date Donna Mohr NP [address] [place] [address] PCP - General 10/24/11 09/24/12 documented as of this encounter
--- OUTSIDE RECORDS SUMMARY | 2024-04-22 23:52 | XMS_ITS | Encounter Summary ---
Author Organization [facility] Address [address] [place] [address] Care Team Providers Care Band Cutter Name Role Phone Donna Mohr NP Primary Care Provider [phone] Reason for Visit * Reason Onset Date Comments Other 06/20/2012 Encounter Details Date Type Department Care Team (Late st Contact Info) Description 06/20/2012 Telephone [facility] Spine Program [place] [address] Starr Hart PALizettC Other Social History Tobacco Use Types Packs/Day [...] encounter Miscellaneous Notes * Telephone Encounter - Charlotte Baptiste - 06/20/2012 0822 EDT Hannah called this morning stating she had her injection last Saturday, and on Saturday developed terrible headache that is still present. States pain is no different, still having pain in her neck and arm with numbness and aching in her arm. She is not taking any pain medication. Has followup with Starr on July 03. Since symptoms are no better, is asking if she should see you before July 03. Please advise. documented in this encounter Plan of Treatment Upcoming Encounters Date Type Department Care Team (Late st Contact Info) Description 04/27/2024 14:30 EDT Telemedicine [facility] Neurology - [address] [place], [place] [address] Kj Gloria MD PhD 1 [facility], [address] [place] [phone] 04/30/2024 9:30 EDT Office Visit [facility] Interventional Pain [address] [facility] [place], [place] [phone] Catalino Garrett MD [address] [facility] [address] [place] [address] 09/18/2024 11:00 EST Office Visit [facility] Bariatric Surgery [facility] [address] [place], [place] [address] Allen Thompson PA-C [address] [facility], [address] [place] [phone] documented as of this encounter Visit Diagnoses Not on filedocumented in this encounter Care Teams Band Cutter Relationship Specialty Start Date End Date Donna Mohr NP [address] [place] [address] PCP - General 10/24/11 09/24/12 documented as of this encounter
--- OUTSIDE RECORDS SUMMARY | 2024-04-22 23:52 | XMS_ITS | Encounter Summary ---
Author Organization [facility] Address [address] [place] [address] Care Team Providers Care Air Drier Machine Operator Name Role Phone Onur Donna PLATT Primary Care Provider Encounter Details Date Type Department Care Team (Latest Contact Info) Description 10/31/2011 10:30 EST - 10/31/2011 16:06 EST Hospital Encounter [facility] Perioperative Services - [facility] [address] [place] [phone] Gabriel Keys MD [address] [place] [phone] Tarsal tunnel syndrome of right side Discharge Disposition: Home or Self Care Social [...] EST documented in this encounter Discharge Instructions * Discharge Instructions* Gabriel Keys MD - 10/31/2011 7:19 EST Stay non-weight bearing on the right in splint. Keep incision dry. Followup with Dr. Keys in 2 weeks. If there are any questions, please call [phone] and ask for Pat Agnieszka documented in this encounter Medications at Time [...] 650 mg by mouth as needed. 09/07/2015 gabapentin (NEURONTIN) 100 mg capsule Take 300 mg by mouth 3 times daily. 03/20/2012 ibuprofen (MOTRIN) 200 mg tablet 600 mg every 6 hours as needed. 12/17/2011 oxycodone (ROXICODONE) 5 mg immediate release tablet Take 1-2 Tabs by mouth every 4 hours as needed for Pain. 60 Tab 0 10/31/2011 12/17/2011 topiramate (TOPAMAX) 100 mg tablet Take 200 mg by mouth 2 times daily. 02/03/2015 documented as of this encounter Ordered Prescriptions Prescription Sig Dispensed Refills Start Date End Da te oxycodone (ROXICODONE) 5 mg immediate release tablet Take 1-2 Tabs by mouth every 4 hours as needed for Pain. 60 Tab 0 10/31/2011 12/17/2011 documented in this encounter Discharge Disposition Disposition Code Departure Means Destination Home or Self Care documented in this encounter Progress Notes * SEWING MACHINE OPERATOR PAPER BAGS, KAYKAY 2 - 11/02/2011 1240 EST * Brit Morgan RN - 10/31/2011 1548 EST Uneventful pacu course thus far. VSS. Pain and nausea improving. Taking po. CMST's RLE WNL. Family visiting. * Angely Johnson RN - 10/24/2011 0831 EST Tia Eileen Spain has been instructed as follows regarding medication administration for the day of the scheduled procedure. Date of Surgery: 10/31/11 Instructions for [...] X documented in this encounter H&P Notes * SEWING MACHINE OPERATOR PAPER BAGS, SCAN 2 - 11/02/2011 1240 EST * Gabriel Keys MD - 10/31/2011 1305 EST The preoperative history and physical which was performed within 30 days of this procedure has been reviewed and the clinically appropriate elements of the physical examination have been repeated. There are no changes to the documented history and physical or if so such changes are documented below GABRIEL KEYS MD 10/31/2011 13:05 documented in this encounter Procedure Notes * SEWING MACHINE OPERATOR PAPER BAGS, SCAN 2 - 11/02/2011 1239 ESTAssociated Order(s): ECG REPORT - SCANNED * SEWING MACHINE OPERATOR PAPER BAGS, SCAN 2 - 11/02/2011 1239 ESTAssociated Order(s): ORDERS - SCANNED documented in this encounter OR Notes * OR PreOp - SEWING MACHINE OPERATOR PAPER BAGS, SCAN 2 - 11/02/2011 1240 EST * OR Surgeon - Gabriel Keys MD - 11/01/2011 0782 EST OPERATIVE REPORT SERVICE DATE: 10/31/2011 SURGEON: Gabriel Keys MD CHEMISTRY PHYSICS TEACHER: Gabriel Warner MD PREOPERATIVE DIAGNOSIS: Right tarsal tunnel syndrome. POSTOPERATIVE DIAGNOSIS: Right tarsal tunnel syndrome. PROCEDURE: Right tarsal tunnel release. ANESTHESIA: General. FINDINGS: Posterior artery and 2 venous branches crossing superficial to the posterior tibial nerve. No other clear areas of compression noted. INDICATIONS: Tia Spain is a 36-year-old female with a symptomatic tarsal tunnel syndrome. After conservative therapy, she elected to have an open tarsal tunnel release, understanding the risks andbenefits. NARRATIVE: The patient was identified in the preoperative holding area. Operative site was confirmed and marked by Dr Keys. History, physical and consent were reviewed and updated. The patient was transported to the OR by nursing staff. She [...] The incision began approximately 5 to 6 cmabove the tip of malleolus and curved anteriorly [...] the posterior tibialis tendon sheath. This sheath incision was extended with scissors, first proximally and then [...] nerve was identified and followed distally where it was seen to branch into the lateral plantar nerve and the medial plantar nerve. The 1st branch off the posterior aspect of the lateral plantar nerve was also identified. We first traced the medial plantar nerve distally until it dove under the abductor. The leading edge of the abductor fascia wasreleased and the nerve was traced distally. Overlying fascial bands were released until a Mayer could easily be passed without any obstruction [...] satisfied with the release of pressure from thefull length of the nerve and its branches. Tourniquet was deflated after a total time of 32 minutes. It had been inflated after Esmarch exsanguination prior to incision to 250 mmHg. Upon tourniquet release, there were no serious bleeders. Onebranch of the vein had to be recauterized. The artery was seen pulsatile and healthy. There were noareas of significant nerve compression noted other than the classically described areas. There are,however, no noted constrictors of the nerve itself. After irrigation with sterile saline, skin was closed with 3-0 Monocryl and 5-0 chromic. Sterile dressing was applied. A plaster short leg splint was fashioned thereafter. Then 10 mL of 0.5% Marcaineplain were infiltrated locally about the wound prior [...] PM / Gabriel Warner MD ss Confirmation: [id number] Dictation ID: [id number] * Anesthesia Preprocedure Evaluation - SEWING MACHINE OPERATOR PAPER BAGS, SCAN 2 - 10/31/2011 1547 EST * Anesthesia Procedure Notes - SEWING MACHINE OPERATOR PAPER BAGS, SCAN 2 - 10/31/2011 1453 EST * OR PreOp - SEWING MACHINE OPERATOR PAPER BAGS, SCAN 2 - 10/31/2011 1421 EST documented in this encounter Miscellaneous Notes * Scanned Note-Null - SEWING MACHINE OPERATOR PAPER BAGS, SCAN 2 - 11/02/2011 1240 EST * Scanned Note-Null - SEWING MACHINE OPERATOR PAPER BAGS, SCAN 2 - 11/02/2011 1239 EST * Anesthesia Post-Eval - Gabriel Pack - 10/31/2011 1537 EST Post Anesthesia Evaluation Note Date of Service: 10/31/2011 Tia Spain, a 36 y.o. year old female has [...] 100 % (10/31/11 1530),Numeric Pain Level (Scale 1-10):5 Tia Spain participated in this evaluation unless otherwise noted. Her pain, nausea and vomiting have been managed and her body temperature and fluid balance have been restored. Additional monitoring and assessment needs have been addressed. If present, any postoperative events are documented below. Mild nausea and pain. Getting better. GABRIEL PACK MD 10/31/2011 15:37 * Brief Op Note - Gabriel Keys MD - [...] Contact Info) Description 04/27/2024 14:30 EDT Telemedicine [facility] Neurology - [address] [place] [address] [place], [place] [id number] Kj Gloria MD PhD [address] [facility], [address] [place] [phone] 04/30/2024 9:30 EDT Office Visit [facility] Interventional Pain [address] [facility] [place], [place] [phone] Gabriel Garrett MD [address] [place] [address] 09/18/2024 11:00 EST Office Visit [facility] Bariatric Surgery - [place] [address] [place], [place] [address] Allen Thompson PA-C [address] [facility] [place] [phone] documented as of this encounter Procedures Procedure Name Priority Date/Time Associated Diagnosis Comments ECG REPORT - SCANNED 11/02/2011 12:39 EST ORDERS - SCANNED 11/02/2011 12:3 9 EST documented in this encounter Results * ORDERS - SCANNED (11/02/2011 12:39 EST) 11/02/2011 12:3 9 EST Narrative Transcriptions SEWING MACHINE OPERATOR PAPER BAGS, SCAN 2 - 11/02/2011 12:39 EST Scan 2 Recycling Attendant ADMISSION ORDERABLE S * ECG REPORT - SCANNED (11/02/2011 12:39 EST) 11/02/2011 12:3 9 EST Narrative Transcriptions SEWING MACHINE OPERATOR PAPER BAGS, SCAN 2 - 11/02/2011 12:39 EST Scan 2 Recycling Attendant PROCEDURE/MINOR LÓPEZ GICAL ORDERABLES documented in this encounter Visit Diagnoses Diagnosis Tarsal tunnel syndrome of right side- Primary Tarsal tunnel syndrome Tarsal tunnel syndrome of right side Tarsal tunnel syndrome documented in this encounter Administered Medications Inactive Administered Medications - up to 3 most recent administrations Medication Order MAR Action Action Date Dose Rate Site ceFAZolin (ANCEF) syringe 2 g 2 g, intravenous, Administer over 10 Minutes, PRE-OP ONCE, 1 dose, On Sat10/31/11 at 1130, Routine, Pre Op Day of Surgery Given by Other 10/31/2011 13:24 EST 2 g diphenhydrAMINE (BENADRYL) injection 6.25 mg 6.25 mg, intravenous, PRN, 2 doses, Starting on Sat10/31/11 at 1424, Until Sat10/31/11 at 1829, nausea, Routine, Recovery (only) Given 10/31/2011 15:14 EST 6.25 mg fentanyl citrate (PF) 50 mcg/mL injection 25-100 mcg 25-100 mcg, intravenous, EVERY 5 MIN PRN, Starting on Sat10/31/11 at 1424, Until Sat10/31/11 at 1829, Pain, Routine, Recovery (only) Given 10/31/2011 15:28 EST 50 mcg Given 10/31/2011 15:16 EST 50 mcg ondansetron (PF) (ZOFRAN) injection 2-4 mg 2-4 mg, intravenous, PRN, 1 dose, Starting on Sat10/31/11 at 1424, Until Sat10/31/11 at 1457, Nausea, Vomiting, Routine, Recovery (only) Given 10/31/2011 14:57 EST 2 m g oxycodone (ROXICODONE) immediate release tablet 5 mg 5 mg, oral, PRN, 2 doses, Starting on Sat10/31/11 at 1424, Until Sat10/31/11 at 1829, Pain, x 2 doses, Routine, Recovery (only) Given 10/31/2011 15:26 EST 10 m g documented in this encounter Discontinued Medications Medication Sig Discontinue Reason Start Date End Da te duloxetine (CYMBALTA) 60 mg capsule Take 60 mg by mouth daily. Error 10/24/2011 amlodipine (NORVASC) 2.5 mg tablet Take 2.5 mg by mouth 2 times daily. Patient Stopped Taking 05/16/2011 10/24/2011 documented as of this encounter Historical Medications * This list may reflect changes made after this encounter. Medication Sig Dispensed Refills Start Date End Date methylphenidate (RITALIN SR; METADATE ER; METHYLIN ER) 20 mg SR tablet Take by mouth 2 times daily. Takes 20 mg every morning, 20 mg every afternoon, 10 mg every evening. ibuprofen (MOTRIN) 200 mg tablet 600 mg every 6 hours as needed. 12/17/2011 gabapentin (NEURONTIN) 100 mg capsule Take 300 mg by mouth 3 times daily. 03/20/2012 added in this encounter Active and Recently Administered Medications Times are shown in EST. Scheduled Medication Order 10/29/2011 10/30/2011 10/31/2011 ceFAZolin (ANCEF) syringe 2 g (COMPLETED) 2 g, intravenous, Administer over 10 Minutes, PRE-OP ONCE, 1 dose, On Sat10/31/11 at 1130, Routine, Pre Op Day of Surgery 1324 (Given by Other - Provider: Toshia Anderson - Comment: given by Gladis Marte) PRN Medication Order 10/29/2011 10/30/2011 10/31/2011 diphenhydrAMINE (BENADRYL) injection 6.25 mg (CANCELED) 6.25 mg, intravenous, PRN, 2 doses, Starting on Sat10/31/11 at 1424, Until Sat10/31/11 at 1829, nausea, Routine, Recovery (only) 1514 (Given - Provid er: Brit Morgan RN) fentanyl citrate (PF) 50 mcg/mL injection 25-100 mcg (CANCELED) 25-100 mcg, intravenous, EVERY 5 MIN PRN, Starting on Sat10/31/11 at 1424, Until Sat10/31/11 at 1829, Pain, Routine, Recovery (only) 1516 (Given - Provid er: Brit Morgan RN)1528 (Given - Provider: Brit Morgan, ALEXANDER) ondansetron (PF) (ZOFRAN) injection 2-4 mg (COMPLETED) 2-4 mg, intravenous, PRN, 1 dose, Starting on Sat10/31/11 at 1424, Until Sat10/31/11 at 1457, Nausea, Vomiting, Routine, Recovery (only) 1457 (Given - Provid er: Brit Morgan, ALEXANDER) oxycodone (ROXICODONE) immediate release tablet 5 mg (CANCELED) 5 mg, oral, PRN, 2 doses, Starting on Sat10/31/11 at 1424, Until Sat10/31/11 at 1829, Pain, x 2 doses, Routine, Recovery (only) 1526 (Given - Provid er: Brit Morgan, ALEXANDER) documented in this encounter Orders Medications Ordered That Jakob ht Not Have Been Administered Count Last Ordered Date First Ordered Date acetaminophen (TYLENOL) tablet 500 mg 1 atropine 0.1 mg/mL 10 mL syringe 0.5 mg 1 0 10/31/2011 hydrocodone-acetaminophen (L ORTAB;VICODIN) 5-500 mg per tablet 1-2 Tab 1 10/31/2011 HYDROmorphone (DILAUDID) tablet 2 mg 1 10/04 HYDROmorphone (PF) (DILAUDID ) 1 mg/mL injection 0.2-1 mg 1 10/31/2011 lactated ringers (LR) infusion 2 10/31/2011 meperidine (PF) (DEMEROL) 25 mg/0.5 mL injection 12.5 mg 1 10/31/2011 metoCLOPramide (REGLAN) injection 10 mg 1 0 10/31/2011 midazolam (VERSED) injection 0.5-2 mg 1 naloxone (NARCAN) injection 0.2 mg 1 2011 oxycodone-acetaminophen (PER COCET) 5-325 mg per tablet 1-2 Tab 1 10/31/2011 Nursing Count Last Ordered Date First Orde red Date INSERT PERIPHERAL IV 1 10/31/2011 Admission Count Last Ordered Date First Orde red Date ADMIT TO OUTPATIENT 1 10/31/2011 NOTIFY PPS PACU PATIENT DISCHARGE 1 012 Discharge Count Last Ordered Date First Orde red Date DISCHARGE PATIENT 1 10/31/2011 Equipment Count Last Ordered Date First Orde red Date CRUTCHES 1 10/31/2011 documented in this encounter Care Teams Air Drier Machine Operator Relationship Specialty Start Date End Date Donna Mohr, GIULIA Roland [place] [address] PCP - General 10/24/11 09/24/12 documented as of this encounter
--- OUTSIDE RECORDS SUMMARY | 2024-04-22 23:52 | XMS_ITS | Encounter Summary ---
Author Organization [facility] Address [address] [place] [address] Care Team Providers Care Mobile Designer Name Role Phone Donna Mohr NP Primary Care Provider Reason for Visit * Reason Comments Post-OP Follow Up Right tarsal tunnel release 11/01/11 Encounter Details Date Type Department Care Team (Late st Contact Info) Description 11/13/2011 11:00 EDT Office Visit [facility] Foot & Ankle Program - [address] [place] [address] Catalino Keys MD [address] [place] [phone] Tarsal tunnel syndrome of right [...] Dispensed Refills Start Date End Da te hydrocodone-acetaminophen (LORTAB) 7.5-500 mg per tabletIndications:Tarsal tunnel syndrome of right side Take 1 Tab by mouth every 4 hours as needed for Pain. 60 Tab 0 11/13/2011 01/21/2012 documented in this encounter Progress Notes * Catalino Keys MD - 11/13/2011 1228 EDT [...] documented in this encounter Procedure Notes * FLOATING DERRICK OPERATOR, SCAN 2 - 12/06/2011 1332 EDTAssociated Order(s): ORDERS - SCANNED documented in this encounter Plan of Treatment Upcoming Encounters Date Type Department Care Team (Late st Contact Info) Description 04/27/2024 14:30 EDT Telemedicine [facility] Neurology - [address] [phone] Kj Gloria MD PhD [address] [place] [address] [address] [place] [phone] 04/30/2024 9:30 EDT Office Visit [facility] Interventional Pain [address] [facility] [place], [place] [phone] Catalino Garrett MD [address] [facility] [address] [place] [phone] 09/18/2024 11:00 EST Office Visit [facility] Bariatric Surgery - [place] [address] [place], [place] [address] Allen Thompson PA-C [address] [facility] [address] [place] [phone] documented as of this encounter Procedures Procedure Name Priority Date/Time Associated Diagnosis Comments ORDERS - SCANNED 12/06/2011 13:3 2 EDT documented in this encounter Results * ORDERS - SCANNED (12/06/2011 13:32 EDT) 12/06/2011 13:3 2 EDT Narrative Transcriptions FLOATING DERRICK OPERATOR, SCAN 2 - 12/06/2011 13:32 EDT Scan 2 Old Coin Dealer ADMISSION ORDERABLE S documented in this encounter Visit Diagnoses Diagnosis Tarsal tunnel syndrome of right side- Primary Tarsal tunnel syndrome documented in this encounter Care Teams Mobile Designer Relationship Specialty Start Date End Date Donna Mohr NP [place] [address] PCP - General 10/24/11 09/24/12 documented as of this encounter
--- OUTSIDE RECORDS SUMMARY | 2024-04-22 23:52 | XMS_ITS | Encounter Summary ---
Author Organization [facility] Address [address] [place] [address] Care Team Providers Care Needlemaker Name Role Phone Alejandra Herrera MD Primary Care Provider [phone] Encounter Details Date Type Department Care Team (Late st Contact Info) Description 09/29/2012 5:56 EST - 09/29/2012 11:46 EST Hospital Encounter [facility] Perioperative Services- [address] [address] Ana Rosa Mendoza MD [address] [place] [phone] Cervicalgia (Primary Dx) Discharge Disposition: Home or Self [...] EST documented in this encounter Discharge Summaries * Marques Smith MD - 09/29/2012 0937 EST [...] on 09/29/2012 for above diagnoses. The patient tolerated the procedure well. The patient recovered in PACU. After meeting the above discharge criteria, shewas discharged home in stable condition on 09/29/2012. The patient will follow up with Ana Rosa Mendoza MD as scheduled or will call for an appointment. cc: ALEJANDRA Mendoza MD Discharge Summary Completed: aissatou Smith M.D. PGY-3 Orthopaedic Resident 09/29/2012 9:38 Pager: [phone] documented in this encounter Discharge Instructions * Discharge Instructions* Marques Smith MD - 09/29/2012 9:[address] Mendoza outpatient instructions general Keep wound covered for two- three days. You may shower with the dressing on, and get the wound wet once it is off. Keep steri strips intact until they fall off on their own. You may do any activities as tolerated, there are no restrictions after this surgery. 10 lb liftinglimit. If you've been given a neck collar, it is for your comfort and not required. Follow up Spine as scheduled. Contact the office with any questions. Future Appointments Date Time Provider Department Center 10/21/2012 12:45 Ana Rosa Mendoza MD Spine None 11/05/2012 13:30 Zachery Walters MD [facility] Neuro None 12/09/2012 13:30 Ana Rosa Mendoza MD Spine None Please do not take antiinflammatories (motrin, ibuprofen, etc) unless you have been told to. Contact the office immediately for any wound drainage or a severe headache when you stand up that goes away when you sit down. [facility] Patient Instructions Cervical Discectomy: What to Expect at Home Your Recovery You can expect your neck to feel stiff or sore after surgery. This should improve in the weeks after surgery. But it may take 4 to 6 [...] your doctor if you can take an [id number] medicine. Do not take two or more [...] a good idea to know your test results and keep a list of the medicines you [...] Where can you learn more? Go to www.iMeigu.net/fahc Enter R489 in the search box to learn more about Cervical Discectomy: What to Expect at Home. ?? 2005 - 2008 [employer]. Care instructions adapted under license by [facility], [facility] . This care instruction is for use with your licensed healthcare professional. If you have questions about a medical condition or this instruction, always ask your healthcare professional. [employer] disclaims any warranty or liability for your [...] Units by mouth 2 times daily. 02/03/2015 Otley-3 Fatty Acids-Vitamin E (FISH OIL) 1,000 mg cap Take 1,000 mg by mouth 2 times daily. 02/03/2015 oxycodone (ROXICODONE) 5 mg immediate release tablet Take 1-2 Tabs by mouth every 4 hours as needed for Pain. 60 Tab 0 09/29/2012 11/05/2012 prochlorperazine (COMPAZINE) 10 mg tablet Take 1 Tab by mouth every 6 hours as needed for Nausea. 10 Tab 2 09/29/2012 08/31/2015 topiramate (TOPAMAX) 100 mg tablet Take 200 mg by mouth 2 times daily. 02/03/2015 documented as of this encounter Ordered Prescriptions Prescription Sig Dispensed Refills Start Date End Da te prochlorperazine (COMPAZINE) 10 mg tablet Take 1 Tab by mouth every 6 hours as needed for Nausea. 10 Tab 2 09/29/2012 08/31/2015 oxycodone (ROXICODONE) 5 mg immediate release tablet Take 1-2 Tabs by mouth every 4 hours as needed for Pain. 60 Tab 0 09/29/2012 11/05/2012 documented in this encounter Discharge Disposition Disposition Code Departure Means Destination Home or Self Care documented in this encounter Progress Notes * Fernando Degroot - 09/22/2012 0684 EST Tia Spain has been instructed as follows regarding medication administration for the day of the scheduled procedure. Date of Surgery: 09/29/2012 Instructions for Taking Medications Day of Surgery Medication Last Dose Hold DOS Take DOS Otley-3 Fatty Acids-Vitamin E (FISH OIL) 1,000 mg [...] yes documented in this encounter H&P Notes * CLAMP FORKLIFT OPERATOR, KAYKAY 2 - 10/02/2012 8523 EST * Ana Rosa Mendoza MD - 09/29/2012 0714 EST The preoperative history and physical which was performed within 30 days of this procedure has been reviewed and the clinically appropriate elements of the physical examination have been repeated. There are no changes to the documented history and physical or if so such changes are documented below ANA ROSA MENDOZA MD 09/29/2012 7:14 documented in this encounter Procedure Notes * CLAMP FORKLIFT OPERATOR, SCAN 2 - 10/02/2012 1428 ESTAssociated Order(s): ECG REPORT - SCANNED documented in this encounter Nursing Notes * CLAMP FORKLIFT OPERATOR, SCAN 2 - 10/02/2012 1428 EST documented in this encounter OR Notes * Anesthesia Preprocedure Evaluation - CLAMP FORKLIFT OPERATOR, SCAN 2 - 10/06/2012 1406 EST * OR PreOp - CLAMP FORKLIFT OPERATOR, SCAN 2 - 10/02/2012 1428 EST * OR Surgeon - Ana Rosa Mendoza MD - 09/29/2012 1316 EST OPERATIVE REPORT SERVICE DATE: 09/29/2012 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 POSTOPERATIVE DIAGNOSIS: C6-7 HNP. PROCEDURE: C6-7 anterior cervical diskectomy, interbody fusion with structural allograft and anterior Synthes plate. SURGEON: Ana Rosa Mendoza MD NURSING HOME AIDE: Marques Smith MD ANESTHESIA: General. ESTIMATED BLOOD LOSS: 10 mL. INDICATIONS: The patient is a 37-year-old woman with neck and right arm pain unresponsive to multiple nonoperative measures. Radiographs demonstrated a soft tissue disk herniation at C6-7 with root impingement consistent with her clinical findings and an EMG consistent with C7 radiculopathy. After u nderstanding the options as well as risks and [...] She was prepped and draped in a sterilefashion. A transverse incision was made centered over the C6-7 interspace anteriorly, carried sharply down through skin, and subcutaneous tissue split bluntly, careful blunt dissection carried out tothe middle cervical fascia, trachea and esophagus retracted to the right, carotid sheath to the left. Self- retaining retractors were placed beneath the longus colli muscles. A marker was placed at the C6-7 interspace and a lateral x-ray taken confirming our position. A 15 blade was then used to incise the annulus, pituitary used to remove disk material, straight and angled Nathalia curettes used toremove cartilaginous end plate, which was extracted with a pituitary, a vertebral body rn lvn placed in the interspace. A rent in the posterior annulus was clearly identified with a herniated nucleus pulposus. This was grasped with the pituitary and extracted using the rent. Two mm Kerrisons wereused to completely remove the posterior longitudinal ligament and posterior annulus as well as resection of the posterior aspect of the endplate of C6 and C7 and perform bilateral foraminotomies, following which the dura was directly visualized and the nerve roots and they were completely free. Theendplate was then shaped with a 4 mm lucretia, sequential sizers placed, and an 8 mm anterior lordotic structural allograft was then placed anteriorly. An anterior Synthes plate was then shaped into lordosis. Screws passed through the plate into the body, locking nuts applied, and a lateral x-ray takenconfirming excellent position. The wound was irrigated copiously with bacitracin irrigation, closedin layers with 2-0 Vicryl, 3-0 Monocryl in a running subcuticular stitch. Steri-Strips were applied. Sterile gauze dressing. The patient was transferred to the recovery room in good condition. Unless otherwise noted, there were no complications, no blood loss, no cultures obtained, no specimens removed, and no drains retained. Ana Rosa Mendoza MD 09 15 AM / Ana Rosa Mendoza MD mt Confirmation: [id number] Dictation ID: [id number] * Anesthesia Procedure Notes - CLAMP FORKLIFT OPERATOR, SCAN 2 - 09/29/2012 0942 EST * OR PreOp - CLAMP FORKLIFT OPERATOR, SCAN 2 - 09/29/2012 0940 EST documented in this encounter Miscellaneous Notes * Scanned Note-Null - CLAMP FORKLIFT OPERATOR, SCAN 2 - 10/02/2012 1428 EST * Scanned Note-Null - CLAMP FORKLIFT OPERATOR, SCAN 2 - 10/02/2012 1428 EST * Scanned Note-Null - CLAMP FORKLIFT OPERATOR, SCAN 2 - 10/02/2012 1428 EST * Anesthesia Post-Eval - Gene Triplett H - 09/29/2012 [...] to last greater than 48 hours, Tia Spain will be followed by the Acute Pain Service. GENE TRIPLETT MD 09/29/2012 11:13 * Brief Op Note - Marques Smith MD - 09/29/2012 0933 EST Orthopedic Surgery BRIEF OPERATIVE NOTE Date: 09/29/2012 Operations And Maintenance Technician : Ana Rosa Mendoza MD Aerodynamic Consultant : Octavio Smith M.D. Preoperative Diagnosis : [...] diet Marques Smith M.D. 09/29/2012 9:33 Pager: [phone] * Scanned Note-Null - CLAMP FORKLIFT OPERATOR, SCAN 2 - 09/29/2012 0601 EST * Scanned Note-Null - CLAMP FORKLIFT OPERATOR, SCAN 2 - 09/29/2012 0601 EST * Scanned Note-Null - CLAMP FORKLIFT OPERATOR, SCAN 2 - 09/29/2012 0601 EST documented in this encounter Plan of Treatment Upcoming Encounters Date Type Department Care Team (Late st Contact Info) Description 04/27/2024 14:30 EDT Telemedicine [facility] Neurology - [address] [phone] Ana Rosa Gloria MD PhD 1 [facility] [address] [place] [phone] 04/30/2024 9:30 EDT Office Visit [facility] Interventional Pain [address] [facility] [place], [place] [phone] Catalino Garrett MD [address] [facility] [address] [place] [phone] 09/18/2024 11:00 EST Office Visit [facility] Bariatric Surgery - [place] [address] [place] [address] Allen Thompson PA-C [address] [facility], [address] [place] [phone] documented as of this encounter Procedures Procedure Name Priority Date/Time Associated Diagnosis Comments ECG REPORT - SCANNED 10/02/2012 14:28 EST CERVICAL SPINE 1 VIEW STAT 09/29/2012 9:32 EST CERVICAL SPINE 1 VIEW Routine 09/29/2012 9:05 EST CERVICAL SPINE 1 VIEW STAT 09/29/2012 8:23 EST CERVICAL SPINE 1 VIEW STAT 09/29/2012 8:00 EST TYPE AND SCREEN Routine 09/29/2012 7:06 EST documented in this encounter Results * ECG REPORT - SCANNED (10/02/2012 14:28 EST) 10/02/2012 14:2 8 EST Narrative 10/02/2012 14:46 EST Procedure Note CLAMP FORKLIFT OPERATOR, SCAN 2 - 10/02/2012 14:28 EST Scan 2 Relief Cook PROCEDURE/MINOR LÓPEZ GICAL ORDERABLES * CERVICAL SPINE 1 VIEW (09/29/2012 9:32 EST) Anatomical Region Laterality Modality Other 09/29/2012 9:32 EST 09/30/2012 17:06 EST Narrative 09/30/2012 17:06 EST CERVICAL SPINE ??Sep 29, 2012 09:32:00 AM SIGNS AND SYMPTOMS/COMMENTS: ??Disc displ S/P C6-7 ACDF ??Routine post op for no count R/O FB Comparison: Less than one hour prior. Findings: Single portable AP view of the cervical spine shows anterior cervical disc fusion hardware at C6-C7. An endotracheal tube is in place. There is no radiopaque foreign body. There is a density in the right lung apex, which may represent and perioperative atelectasis.. However, followup PA lateral chest radiographs are advised to exclude a mass.. This was relayed to Dr. Marques Smith via the OR nurse at 1:15pm I have personally reviewed the images and [...] cervical disc fusion hardware at C6-C7. An endotracheal tube is in place. There is no radiopaque foreign body. There is a density in the right lung apex, which may represent and perioperative atelectasis.. However, followup PA lateral chest radiographs are advised to exclude a mass.. This was relayed to Dr. Marques Smith via the OR nurse at 1:15pm I have personally reviewed the images and the above interpretation and agree with the findings. Ana Rosa Mendoza MD [facility] I MAGING ORDERABLES * CERVICAL SPINE 1 VIEW (09/29/2012 9:05 EST) Anatomical Region Laterality Modality Other 09/29/2012 9:05 EST 09/29/2012 10:53 EST Narrative 09/29/2012 10:53 EST Cervical Spine ??Sep 29, 2012 09:05:00 AM Signs and Symptoms/Comments: ??Disc displ C6-7 ACDF. Findings: A single lateral radiograph of the cervical spine, crosstable from the O.R., demonstrates anterior spinal fusion plate C6-C7. Intervertebral disc graft is identified at C6-C7. The C7 vertebra is mostly obscured by shoulder shadows. Within this limitation, the fused segment appears in anatomic alignment. Several metallic yfn are identified. Endotracheal tube and temperature probe are identified within the anterior soft tissues. No other surgical radiopaque material is identified. Procedure Note 09/29/2012 Cervical Spine Sep 29, 2012 09:05:00 AM Signs and Symptoms/Comments: Disc displ C6-7 ACDF. Findings: A single lateral radiograph of the cervical spine, crosstable from the O.R., demonstrates anterior spinal fusion plate C6-C7. Intervertebral disc graft is identified at C6-C7. The C7 vertebra is mostly obscured by shoulder shadows. Within this limitation, the fused segment appears in anatomic alignment. Several metallic yfn are identified. Endotracheal tube and temperature probe are identified within the anterior soft tissues. No other surgical radiopaque material is identified. Ana Rosa Mendoza MD [facility] MAGING ORDERABLES * CERVICAL SPINE 1 VIEW (09/29/2012 8:23 EST) Anatomical Region Laterality Modality Other 09/29/2012 8:23 EST 09/29/2012 9:56 EST Narrative 09/29/2012 9:56 EST CERVICAL SPINE ??Sep 29, 2012 08:23:00 AM Signs and Symptoms/Comments: ??Disc displ C6-7 ACDF Comparison: Radiographs cervical spine August 08, 2012. Findings: Single crosstable lateral view of the cervical spine demonstrates a probe approaching anteriorly to the disc space of C6 and C7. The above findings were called out to the OR and the attending present agreed with the assessment. I have personally reviewed the images and the above interpretation and agree with the findings. Procedure Note Estrada Seymour MD - 09/29/2012 CERVICAL SPINE Sep 29, 2012 08:23:00 AM Signs and Symptoms/Comments: Disc displ C6-7 ACDF Comparison: Radiographs cervical spine August 08, 2012. Findings: Single crosstable lateral view of the cervical spine demonstrates a probe approaching anteriorly to the disc space of C6 and C7. The above findings were called out to the OR and the attending present agreed with the assessment. I have personally reviewed the images and the above interpretation and agree with the findings. Ana Rosa Mendoza MD [facility] I MAGING ORDERABLES * CERVICAL SPINE 1 VIEW (09/29/2012 8:00 EST) Anatomical Region Laterality Modality Other 09/29/2012 8:00 EST 09/29/2012 16:32 EST Narrative 09/29/2012 16:32 EST CERVICAL SPINE ONE VIEW September 29, 2012 Indication: Disc displacement C6-C7 ACDF. Comparison: August 08, 2012. Technique: Lateral view of the cervical spine was obtained. Findings: There is a needle present in the soft tissues anteriorly. Its tip is directed at the C5 vertebral body level. Procedure Note 09/29/2012 CERVICAL SPINE ONE VIEW September 29, 2012 Indication: Disc displacement C6-C7 ACDF. Comparison: August 08, 2012. Technique: Lateral view of the cervical spine was obtained. Findings: There is a needle present in the soft tissues anteriorly. Its tip is directed at the C5 vertebral body level. Ana Rosa Mendoza MD [facility] MAGING ORDERABLES * TYPE AND SCREEN (09/29/2012 7:06 EST) ABO A [facility] Rh Factor Positive [facility] Antibody Screen Negative [facility] Comment:SPECIMEN EXPIRES AT 23:59 ON 10/02/2012 09/29/2012 7:06 EST Provider Unknown BLOOD BANK TESTS [facility] [address] [place] [address] documented in this encounter Visit Diagnoses Diagnosis Cervicalgia- Primary Cervicalgia documented in this encounter Administered Medications Inactive Administered Medications - up to 3 most recent administrations Medication Order MAR Action Action Date Dose Rate Site ceFAZolin (ANCEF) syringe 2 g 2 g, intravenous, Administer over 10 Minutes, PRE-OP ONCE, 1 dose, On Sat09/29/12 at 0700, Routine, Pre Op Day of Surgery Given by Other 09/29/2012 7:50 EST 2 g fentanyl citrate (PF) 50 mcg/mL injection 25-100 mcg 25-100 mcg, intravenous, EVERY 5 MIN PRN, Starting on Sat09/29/12 at 0915, Until Sat09/29/12 at 1356, Pain, Routine, Recovery (only) Given 09/29/2012 10:41 EST 25 mcg Given 09/29/2012 10:30 EST 25 mcg Given 09/29/2012 9:59 EST 50 mcg HYDROmorphone (PF) (DILAUDID) 1 mg/mL injection 0.2-1 mg 0.2-1 mg, intravenous, EVERY 10 MINUTES PRN, Starting on Sat09/29/12 at 0915, Until Sat09/29/12 at 1356, Pain, Routine, Recovery (only) Given 09/29/2012 1 0:42 EST 0.3 mg Given 09/29/2012 10:31 EST 0.4 mg Given 09/29/2012 9:59 EST 0.3 mg lactated ringers (LR) infusion at 100 mL/hr, intravenous, CONTINUOUS, Starting on Sat09/29/12 at 0700, Until Sat09/29/12 at 1356, Routine, Pre Op Day of Surgery New Bag 09/29/2012 6:50 EST 100 mL/hr oxycodone (ROXICODONE) immediate release tablet 5 mg 5 mg, oral, PRN, 2 doses, Starting on Sat09/29/12 at 0915, Until Sat09/29/12 at 1356, Pain, x 2 doses, Routine, Recovery (only) Given 09/29/2012 10:46 EST 10 mg documented in this encounter Discontinued Medications Medication Sig Discontinue Reason Start Date End Da te duloxetine (CYMBALTA) 30 mg capsule Take 30 mg by mouth 2 times daily. Therapy completed 09/22/2012 indomethacin (INDOCIN SR) 75 mg SR capsule Take 1 Cap by mouth daily. Therapy completed 05/01/2012 09/22/2012 Hydrocodone-Acetaminophen (VICODIN ES) 7.5-300 mg Tab Take by mouth every 6 hours. 09/29/2012 ibuprofen (MOTRIN) 200 mg tablet Take 600 mg by mouth every 6 hours. 09/29/2012 documented as of this encounter Historical Medications * This list may reflect changes made after this encounter. Medication Sig Dispensed Refills Start Date End Date Hydrocodone-Acetaminophen (VICODIN ES) 7.5-300 mg Tab Take by mouth every 6 hours. 09/29/2012 cholecalciferol, Vitamin D3, 1,000 unit tablet Take 1,000 Units by mouth 2 times daily. 02/03/2015 Otley-3 Fatty Acids-Vitamin E (FISH OIL) 1,000 mg cap Take 1,000 mg by mouth 2 times daily. 02/03/2015 added in this encounter Active and Recently Administered Medications Times are shown in EST. Scheduled Medication Order 09/27/2012 09/28/2012 09/29/2012 ceFAZolin (ANCEF) syringe 2 g (COMPLETED) 2 g, intravenous, Administer over 10 Minutes, PRE-OP ONCE, 1 dose, On Sat09/29/12 at 0700, Routine, Pre Op Day of Surgery 0750 (Given by Other - Provider: Joya Troy RN - Comment: Given per anesthesia provider.) Continuous Medication Order 09/27/2012 09/28/2012 09/29/2012 lactated ringers (LR) infusion (CANCELED) at 100 mL/hr, intravenous, CONTINUOUS, Starting on Sat09/29/12 at 0700, Until Sat09/29/12 at 1356, Routine, Pre Op Day of Surgery 0650 ([facility] - Prov ider: Lyla Van RN) PRN Medication Order 09/27/2012 09/28/2012 09/29/2012 fentanyl citrate (PF) 50 mcg/mL injection 25-100 mcg (CANCELED) 25-100 mcg, intravenous, EVERY 5 MIN PRN, Starting on Sat09/29/12 at 0915, Until Sat09/29/12 at 1356, Pain, Routine, Recovery (only) 0959 (Given - Provid er: Angela Hendricks RN)1030 (Given - Provider: Angela Hendricks RN)1041 (Given - Provider: Angela Hendricks RN) HYDROmorphone (PF) (DILAUDID) 1 mg/mL injection 0.2-1 mg (CANCELED) 0.2-1 mg, intravenous, EVERY 10 MINUTES PRN, Starting on Sat09/29/12 at 0915, Until Sat09/29/12 at 1356, Pain, Routine, Recovery (only) 0959 (Given - Provid er: Angela Hendricks RN)1031 (Given - Provider: Angela Hendricks RN)1042 (Given - Provider: Angela Hendricks RN) oxycodone (ROXICODONE) immediate release tablet 5 mg (CANCELED) 5 mg, oral, PRN, 2 doses, Starting on Sat09/29/12 at 0915, Until Sat09/29/12 at 1356, Pain, x 2 doses, Routine, Recovery (only) 1046 (Given - Provid er: Angela Hendricks RN) documented in this encounter Orders Medications Ordered That Jakob ht Not Have Been Administered Count Last Ordered Date First Ordered Date atropine 0.1 mg/mL 10 mL syringe 0.5 mg 1 0 09/29/2012 lactated ringers (LR) infusion 1 09/29/2012 naloxone (NARCAN) injection 0.2 mg 1 2012 Nursing Count Last Ordered Date First Orde red Date INSERT PERIPHERAL IV 1 09/29/2012 Admission Count Last Ordered Date First Orde red Date STATUS: INPATIENT DOSA/DOPA DAY OF SURGERY/PROCEDURE ADMISSION 1 09/29/2012 Transfer Count Last Ordered Date First Orde red Date NOTIFY PPS PACU PATIENT DISCHARGE 013 NOTIFY PPS PATIENT ARRIVAL IN PACU 1 2012 Discharge Count Last Ordered Date First Orde red Date DISCHARGE PATIENT 1 09/29/2012 documented in this encounter Care Teams Needlemaker Relationship Specialty Start Date End Date Alejandra Herrera MD [address] [facility] [place] [phone] PCP - General 09/25/12 12/07/18 documented as of this encounter
--- OUTSIDE RECORDS SUMMARY | 2024-04-22 23:52 | XMS_ITS | Encounter Summary ---
Author Organization [facility] Address [address] [place] [address] Care Team Providers Care Agricultural Consultant Name Role Phone RosibelDonna barnes GIULIA Primary Care Provider [phone] Encounter Details Date Type Department Care Team (Late Contact Info) Description 09/01/2012 Abstract [facility] Hand & Upper Extremity Program - [address] [place] [address] Khris Barraza MD [address] [place] [phone] Social History Tobacco Use Types Packs/Day Years [...] EDT Telemedicine [facility] Neurology - [address] [phone] Kj Gloria MD PhD 1 [facility], Level [address] [place] [phone] 04/30/2024 9:30 EDT Office Visit [facility] Interventional Pain [address] [place] [address] Catalino Garrett MD 62 [facility] [address] [place] [address] 09/18/2024 11:00 EST Office Visit [facility] Bariatric Surgery - [place] [address] [place], [place] [address] Allen Thompson PA-C [address] [place] [address] 5 [place] [phone] documented as of this encounter Visit Diagnoses Not on filedocumented in this encounter Care Teams Agricultural Consultant Relationship Specialty Start Date End Date Donna Mohr NP [address] [place] [address] PCP - General 10/24/11 09/24/12 documented as of this encounter
--- OUTSIDE RECORDS SUMMARY | 2024-04-22 23:52 | XMS_ITS | Encounter Summary ---
Author Organization [facility] Address [address] [place] [address] Care Team Providers Care Possum Trapper Name Role Phone Donna Mohr NP Primary Care Provider Reason for Referral * Consult (Routine/Next Available) - Closed Specialty Diagnoses / Procedures Referred By Contac t Referred To Contact Diagnoses Lumbar radiculopathy Tarsal tunnel syndrome of right side Catalino Keys MD [address] [place] [phone] Khris Barraza MD [address] [place] [phone] Referral ID Status Reason Start Date Expiration Date V isits Requested Visits Authorized [id number] Closed Specialty Services Required 02/11/2012 1 1 Question Answer Reason for Request: Dr Barraza - EMG/NCV bilateral LE's. Evaluate for neuritis causing bilateral burning foot pain. Patient has history of prior back surgeries. Reason for Visit * Reason Comments Follow-up right foot Encounter Details Date Type Department Care Team (Late st Contact Info) Description 02/11/2012 11:00 EDT Office Visit [facility] Foot & Ankle Program - [address] [place] [address] Catalino Keys MD [address] [place] [phone] Lumbar radiculopathy; Tarsal tunnel syndrome of [...] Progress Notes * Catalino Keys MD - 02/11/2012 1636 EDT Diagnosis: 1. Lumbar radiculopathy (724.4) AMB [...] worse on the right than on the left.It does seem to get worse with activity [...] clear to me the etiology of Ms Grabiel's symptomatology. However, she is status post 2 back surgeries and has on a previous EMG, an L5 radiculopathy. I am concerned that she has some sort of spinal etiology of her pain since it does not seem to conform to peripheral nerve distribution nor correspond to any underlying musculoskeletal abnormality. Therefore, I have asked thatshe get an EMG of both lower extremities by [...] Contact Info) Description 04/27/2024 14:30 EDT Telemedicine [facility] Neurology - [address] [place] [address] [place], [place] [address] Kj Gloria MD PhD 1 [facility], Level 2 [place] [address] 04/30/2024 9:[address] [facility] Interventional Pain 62 [facility] [place] [address] Catalino Garrett MD [address] [place] [phone] 09/18/2024 11:00 EST Office Visit [facility] Bariatric Surgery - [place] [address] [place] [address] Allen Thompson PA-C 111 [facility], [facility] 5 [place] [address] Scheduled Referrals Name Type Priority Associated Diagnoses Orde r Schedule AMB CONSULT PHYSIATRY Outpatient Referral Routine Lumbar radiculopathy Tarsal tunnel syndrome of right side Ordered: 02/11/2012 documented as of this encounter Visit Diagnoses Diagnosis Lumbar radiculopathy Thoracic or lumbosacral neuritis or radiculitis, unspecified Tarsal tunnel syndrome of right side Tarsal tunnel syndrome documented in this encounter Care Teams Possum Trapper Relationship Specialty Start Date End Date Donna Mohr NP [address] [place] [address] PCP - General 10/24/11 09/24/12 documented as of this encounter
--- OUTSIDE RECORDS SUMMARY | 2024-04-22 23:52 | XMS_ITS | Encounter Summary ---
Author Organization [facility] Address [address] [place] [address] Care Team Providers Care Scaffolder Name Role Phone Donna Mohr NP Primary Care Provider [phone] Reason for Visit * Reason Onset Date Comments Medications Refill 05/29/2012 Encounter Details Date Type Department Care Team (Late st Contact Info) Description 05/29/2012 Refill [facility] Spine Program - [address] [place], [place] [phone] Starr Hart PALizettC Medications Refill Social History Tobacco Use Types [...] times daily. 90 Cap 2 05/29/2012 08/21/2012 documented in this encounter Miscellaneous Notes * Telephone Encounter - Nena Bo - 05/29/2012 1139 EDT Starr - patient calls in requesting refill of Lyrica to Teetee [facility]enda[facility] in [facility] be phoned in. Please advise. Nena Bo 05/29/2012 11:39 documented in this encounter Plan of Treatment Upcoming Encounters Date Type Department Care Team (Late st Contact Info) Description 04/27/2024 14:30 EDT Telemedicine [facility] Neurology - [address] [place] [address] [place], [place] [address] Kj Gloria MD PhD 1 [facility], Level 2 [place] [phone] 04/30/2024 9:30 EDT Office Visit [facility] Interventional Pain 62 [facility] [place] [address] Catalino Garrett MD [address] [facility] [address] [place] [phone] 09/18/2024 11:00 EST Office Visit [facility] Bariatric Surgery - [place] [address] [place], [place] [address] Allen Thompson, PA-C 111 [facility], Level [address] [place] [phone] documented as of this encounter Visit Diagnoses Diagnosis Tarsal tunnel syndrome of right side Tarsal tunnel syndrome Idiopathic peripheral neuropathy Unspecified hereditary and idiopathic peripheral neuropathy documented in this encounter Discontinued Medications Medication Sig Discontinue Reason Start Date End Da te pregabalin (LYRICA) 25 mg capsuleIndications:Tarsal tunnel syndrome of right side,Idiopathic peripheral neuropathy Take 2 Caps by mouth 3 times daily. 04/03/2012 05/29/2012 documented as of this encounter Care Teams Scaffolder Relationship Specialty Start Date End Date Donna Mohr NP [address] [place] [address] PCP - General 10/24/11 09/24/12 documented as of this encounter
--- OUTSIDE RECORDS SUMMARY | 2024-04-22 23:52 | XMS_ITS | Encounter Summary ---
Author Organization [facility] Address [address] [place] [address] Care Team Providers Care Welder/Installer Name Role Phone RosibelDonna barnes LACTATION COORDINATOR Primary Care Provider [phone] Reason for Visit * Reason Onset Date Comments Ankle Pain 01/15/2012 Encounter Details Date Type Department Care Team (Late st Contact Info) Description 01/15/2012 Telephone [facility] Foot & Ankle Program - [address] [address] Gabriel Keys MD [address] [place] [address] Ankle Pain Social History Tobacco Use Types Packs/Day [...] Encounter - Gabriel Keys MD - 01/17/2012 0870 EDT I agree that having her come in for a visit is the best thing to do. From the description, it isn'tobvious to me what is the source of her pain. GABRIEL KEYS MD * Telephone Encounter - Andrea Victor - 01/15/2012 1449 EDT Tia is s/p 10/31/11 tarsal tunnel release. She calls today very concerned about the pain and swelling in her foot. She claims that her feet are on fire and rates the pain as a 10 on the 1-10 pain scale. 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 Shehas been scheduled for Saturday 01/20 at 1:15pm. I will compose a letter for Tia's employer, indicating her condition. Please advise if you have any thoughts or suggestions. Andrea Victor 01/15/2012 documented in this encounter Plan of Treatment Upcoming Encounters Date Type Department Care Team (Late st Contact Info) Description 04/27/2024 14:30 EDT Telemedicine [facility] Neurology [address] [phone] Kj Gloria MD PhD 1 [facility] 2 [place] [phone] 04/30/2024 9:30 EDT Office Visit [facility] Interventional Pain [address] [place], [place] [phone] Gabriel Garrett MD 62 [facility] [address] [place] [address] 09/18/2024 11:00 EST Office Visit [facility] Bariatric Surgery - [place] [address] [place] [address] Allen Thompson PA-C [address] [place] [address], [address] [place] [phone] documented as of this encounter Visit Diagnoses Not on filedocumented in this encounter Care Teams Welder/Installer Relationship Specialty Start Date End Date Donna Mohr [place] [address] PCP - General 10/24/11 09/24/12 documented as of this encounter
--- OUTSIDE RECORDS SUMMARY | 2024-04-22 23:52 | XMS_ITS | Encounter Summary ---
Author Organization [facility] Address [address] [place] [address] Care Team Providers Care Cover Stitch Machine Operator Name Role Phone RosibelDonna barnes GIULIA Primary Care Provider [phone] Encounter Details Date Type Department Care Team (Late Contact Info) Description 07/23/2012 Phlebotomy Only [facility] - [address] [phone] Brush Head Maker, Outpatient Numbness and tingling; Pain, arm, right Social [...] [facility] Neurology - [address] [place] [address] [place], [place] [phone] Kj Gloria MD PhD 1 [facility] Level [address] [place] [address] 04/30/2024 9:30 EDT Office Visit [facility] Interventional Pain 62 [facility] [place] [address] Catalino Garrett MD 62 [facility] [address] [place] [phone] 09/18/2024 11:00 EST Office Visit [facility] Bariatric Surgery - [place] [address] [place] [address] Allen Thompson PA-C [address] [place] [address], [facility], Level [address] [place] [phone] documented as of this encounter Procedures Procedure Name Priority Date/Time Associated Diagnosis Comments THIAMIN (VITAMIN B1), WB Routine 07/23/2012 14:19 EST Numbness and tingling DIFFERENTIAL Routine 07/23/2012 14:19 EST SED RATE Routine 07/23/2012 14:19 EST Numbness and tingling COMPLETE BLOOD COUNT Routine 07/23/2012 14:19 EST COMPLETE BLOOD COUNT AND DIFFERENTIAL Routine 07/23/2012 14:19 EST Numbness and tingling URINE MONOCLONAL PROTEIN STUDY (UPEP WITH IMMUNOTYPING) Routine 07/23/2012 14:19 EST Numbness and tingling SPEP WITH IMMUNOTYPING Routine 2 14:19 EST Numbness and tingling C REACTIVE PROTEIN Routine 07/23/2012 14 :19 EST Numbness and tingling T3, TOTAL Routine 07/23/2012 14:19 EST Numbness and tingling TSH Routine 07/23/2012 14:19 EST Numbness and tingling T4 FREE Routine 07/23/2012 14:19 EST Numbness and tingling PYRIDOXAL 5 PHOSPHATE (PLP), PLASMA Routine 07/23/2012 14:19 EST Numbness and tingling HEMOGLOBIN A1C Routine 07/23/2012 14:19 EST Numbness and tingling Pain, arm, right FOLATE Routine 07/23/2012 14:19 EST Numbness and tingling VITAMIN B12 Routine 07/23/2012 14:19 EST Numbness and tingling COMPREHENSIVE METABOLIC PANEL (CMP) Routine 07/23/2012 14:19 EST Numbness and tingling documented in this encounter Results * (ABNORMAL) DIFFERENTIAL (07/23/2012 14:19 EST) % Neutrophils 59.5 45.5 - 79.7 % [facility] % Lymphocytes 28.8 15.0 - 46.8 % [facility] % Monocytes 7.7 1.8 - 12.0 % [facility] % Eosinophils 2.3 0.6 - 6.9 % [facility] % Basophils 1.7(H) 0.2 - 1.4 % [facility] ABS Neutrophils 4.24 2.20 - 8.85 K/cmm [facility] ABS Lymphs 2.05 1.09 - 3.30 K/cmm [facility] Monocytes 0.55 0.1 - 0.8 K/cmm [facility] Eosinophils 0.17 0.03 - 0.61 K/cmm [facility] ABS Basophils 0.12(H) 0.01 - 0.11 K/cmm [facility] Type of Diff: Automated [facility] 07/23/2012 14:1 9 EST 07/23/2012 15:53 EST Zachery Walters MD HEMATOLOGY & PF4 ORD ERABLES [facility] [address] [place] [address] * HEMAGRAM (07/23/2012 14:19 EST) WBC 7.12 4.0 - 12.4 K/cmm [facility] [...] LAB RDW-CV 14.0 11.7 - 14.6 % [facility] 07/23/2012 14:1 9 EST 07/23/2012 15:53 EST Zachery Walters MD HEMATOLOGY & PF4 ORD ERABLES Performing Organization Address City/[facility] Co de Phone Number [facility] [address] [place] [address] * T3, TOTAL (07/23/2012 14:19 EST) T3, Total 112 60 - 181 ng/dL [facility] Blood specimen (specimen) 07/23/2012 14:19 EST 07/23/2012 15:53 EST Zachery Walters MD CHEMISTRY & BLOOD GA S ORDERABLES Performing Organization Address [facility] Co de Phone Number [facility] [address] [place] [address] * TSH (07/23/2012 14:19 EST) TSH 0.93 0.35 - 5.00 uIU/ml [facility] Blood specimen (specimen) 07/23/2012 14:19 EST 07/23/2012 15:53 EST Zachery Walters MD CHEMISTRY & BLOOD GA S ORDERABLES Performing Organization Address [facility] Co de Phone Number [facility] [address] [place] [address] * T4 FREE (07/23/2012 14:19 EST) Free T4 1.0 0.8 - 1.8 ng/dL [facility] Blood specimen (specimen) 07/23/2012 14:19 EST 07/23/2012 15:53 EST Zachery Walters MD CHEMISTRY & BLOOD GA S ORDERABLES Performing Organization Address [facility] Phone Number [facility] [address] [place] [address] * HEMOGLOBIN A1C (07/23/2012 14:19 EST) Hemoglobin A1C 5.2 % [facility] Comment: Reference Range: <5.7% Normal 5.7-6.4% Increased risk for diabetes =>6.5% Diagnostic for diabetes (if confirmed) The A1c goal for non adults in general is <7%. The A1c goal for selected patients may be significantly lower than 7% if this can be achieved without significant hypoglycemia or other adverse effects of treatment. Est Avg Glucose 103 mg/dl [facility] Comment: eAG represents the A1c result expressed as average glucose in mg/dl. Blood specimen (specimen) 07/23/2012 14:19 EST 07/23/2012 15:53 EST Zachery Walters MD CHEMISTRY & BLOOD GA S ORDERABLES Performing Organization Address [facility] Phone Number [facility] [address] [place] [address] * FOLATE (07/23/2012 14:19 EST) Folate 8.7 ng/mL [facility] Comment: Deficient: ??Less than 3.4 ng/mL Indeterminate: ??3.4-5.4 ng/mL Normal: ??Greater than 5.4 ng/mL Blood specimen (specimen) 07/23/2012 14:19 EST 07/23/2012 15:53 EST Zachery Walters MD CHEMISTRY & BLOOD GA S ORDERABLES Performing Organization Address [facility]/State/ZIP Co de Phone Number [facility] [address] [place] [address] * MONOCLONAL PROTEIN STUDY, URINE RANDOM (07/23/2012 14:19 EST) Tot Prot,Ur Random 10 mg/dl [facility] Albumin, Urine 29.1 % [facility] Globulins, Urine 70.9 % [facility] Comments Electrophoresis screening performed, immunofixation to follow. [facility] Immunofixatio n,Urine Interpretation: [facility] Comment: Negative for free monoclonal light chains. Interpreted by: Raysa Rothman MD Reference Range: Negative for free monoclonal light chains. Urine specimen (specimen) URINE / Unknown 07/23/2012 14:19 EST 07/23/2012 15:49 EST Zachery Walters MD URINALYSIS ORDERABLE S [facility] [address] [place] [address] * IMMUNOFIXATION/SPEP (07/23/2012 14:19 EST) Pathologist [facility] Total Protein 6.9 6.5 - 8.3 g/dl [facility] Albumin, SPEP 57.8 47.6 - 61.9 % [facility] Alpha-1 % 3.5 1.4 - 4.6 % [facility] Alpha 2, SPEP 11.0 7.3 - 13.9 % [facility] Beta, SPEP 15.8 10.9 - 19.1 % [facility] Gamma, SPEP 11.9 9.5 - 24.8 % [facility] Comments, SPEP No apparent monoclonal protein [facility] Comment: on serum electrophoresis. See Pathology Scanned Report in [employer]. Immunofixation ,serum Interpretation : [facility] Comment: Negative for monoclonal immunoglobulins. Interpreted by: Raysa Rothman MD Reference Range: Negative for monoclonal immunoglobulins. Blood specimen (specimen) 07/23/2012 14:19 EST 07/23/2012 15:53 EST Zachery Walters MD CHEMISTRY & BLOOD GA S ORDERABLES Performing Organization Address [facility] de Phone Number [facility] [address] [place] [address] * PYRIDOXAL 5 PHOSPHATE (PLP), PLASMA (07/23/2012 14:19 EST) Pyridoxal 5 Phosphate 7 5 - 50 mcg/L [facility] Comment: Performed by: [facility] [place], [address], [place] [address], Registered Nurse Nursery: Yoly Nobles, Ph.D. Blood specimen (specimen) 07/23/2012 14:19 EST 07/23/2012 15:53 EST Zachery Walters MD CHEMISTRY & BLOOD GA S ORDERABLES Performing Organization Address [facility] Phone Number [facility] [address] [place] [address] * THIAMIN (VITAMIN B1), WB (07/23/2012 14:19 EST) Thiamin (Vit B1), WB 119 70 - 180 nmol/L [facility] Comment: Performed by: [facility] [place], [address], [place] [address], Registered Nurse Nursery: Yoly Nobles, Ph.D. Blood specimen (specimen) 07/23/2012 14:19 EST 07/23/2012 15:53 EST Zachery Walters MD CHEMISTRY & BLOOD GA S ORDERABLES Performing Organization Address [facility] Co de Phone Number [facility] [address] [place] [address] * VITAMIN B12 (07/23/2012 14:19 EST) Vitamin B-12 444 211 - 911 pg/ml [facility] Blood specimen (specimen) 07/23/2012 14:19 EST 07/23/2012 15:53 EST Zachery Walters MD CHEMISTRY & BLOOD GA S ORDERABLES Performing Organization Address [facility]/ZIP Co de Phone Number [facility] [address] [place] [address] * SED. RATE:WESTERGREN (07/23/2012 14:19 EST) Pathologist [facility] Sed. Rate Westergren 14 0 - 20 mm/hr [facility] Blood specimen (specimen) 07/23/2012 14:19 EST 07/23/2012 15:53 EST Zachery Walters MD HEMATOLOGY & PF4 ORD ERABLES Performing Organization Address [facility] Co de Phone Number [facility] [address] [place] [address] * (ABNORMAL) C-REACTIVE PROTEIN (07/23/2012 14:19 EST) [facility] C-Reactive Protein 1.3(H) <1.0 mg/dl [facility] Blood specimen (specimen) 07/23/2012 14:19 EST 07/23/2012 15:53 EST Zachery Walters MD CHEMISTRY & BLOOD GA S ORDERABLES Performing Organization Address [facility] de Phone Number [facility] [address] [place] [address] * COMPREHENSIVE METABOLIC PANEL (CMP) (07/23/2012 14:19 EST) [facility] Potassium 3.7 3.5 - 5.0 mEq/L [facility] Sodium 139 136 - 145 mEq/L [facility] Chloride 106 96 - 110 mEq/L [facility] CO2 24 24 - 32 mEq/L [facility] Total Alkaline Phosphatase 65 38 - 126 U/L [facility] Bilirubin, Total <0.5 0.2 - 1.3 mg/dl [facility] AST 17 15 - 46 U/L [facility] ALT 30 9 - 52 U/L [facility] Albumin 4.2 3.4 - 4.9 g/dl [facility] Total Protein 6.9 6.5 - 8.3 g/dl [facility] Creatinine 0.78 0.52 - 1.04 mg/dl [facility] GFR, Calculated >60 >60 ml/min/1.7 3m2 [facility] BUN 12 10 - 26 mg/dl [facility] Calcium 9.4 8.5 - 10.5 mg/dl [facility] Calculated Calcium 9.6 8.5 - 10.5 mg/dl [facility] Glucose, Serum 77 70 - 100 mg/dl [facility] Fasting? Unknown [facility] Blood specimen (specimen) 07/23/2012 14:19 EST 07/23/2012 15:53 EST Zachery Walters MD CHEMISTRY & BLOOD GA S ORDERABLES Performing Organization Address City/State/[facility] Co de Phone Number [facility] [address] [place] [address] documented in this encounter Visit Diagnoses Diagnosis Numbness and tingling Disturbance of skin sensation Pain, arm, right Pain in limb documented in this encounter Care Teams Cover Stitch Machine Operator Relationship Specialty Start Date End Date Donna Mohr NP [address] [place] [address] PCP - General 10/24/11 09/24/12 documented as of this encounter
--- OUTSIDE RECORDS SUMMARY | 2024-04-22 23:52 | XMS_ITS | Encounter Summary ---
Author Organization [facility] Address [address] [place] [address] Care Team Providers Care Superintendent Cemetery Name Role Phone Juma Herrera MD Primary Care Provider [phone] Reason for Referral * Consult (Routine/Next Available) - Closed Specialty Diagnoses / Procedures Referred By Wili mireles Referred To Contact Diagnoses Dysesthesia Zachery Walters MD [address] [place] [phone] Abrahan Graves MD [address] [place] [phone] Referral ID Status Reason Start Date Expiration Date V isits Requested Visits Authorized [id number] Closed Specialty Services Required 11/05/2012 1 1 Question Answer Reason for Request: Skin biopsy from right dorsolateral foot, lateral calf and thigh Reason for Visit * Reason Comments Follow-up Encounter Details Date Type Department Care Team (Late st Contact Info) Description 11/05/2012 13:[address] [facility] Neurology - S [address] [address] Zachery Walters MD [address] [place] [phone] Dysesthesia (Primary Dx) Social History Tobacco Use Types [...] Progress Notes * Zachery Walters MD - 11/07/2012 0951 EST [...] with Synthes anterior cervical plate and 4 cervical screws on 09/29/[address] Kj Child. SUBJECTIVE: She was seen by me as a new patient on 07/23/12, and returns today for a followup visit. In the interim, she has had surgery on her neck as above by Dr Kj Child, that has taken away the pain in her neck and right arm, but she still has some pain on the inner aspect of her right shoulder blade with at times a bunch appearing there, which is tender and is associated with muscle spasm in that region. She continues to have significant [...] significant for some pain in the right shoulderblade area, tingling and burning in her feet, [...] and bee sting that produced fever and vomiting, along with swelling; CODEINE that produced hives, nausea [...] edema. She had tattoos on the outer aspectof both legs. LABORATORY DATA: From last visit was reviewed, showing normal or negative values for T3 total, TSH,T4 free, hemoglobin A1c, folate, B1, B6, B12, sed rate, serum immunofixation, urine for monoclonal proteins, comprehensive metabolic panel, and hemogram with differential count. C-reactive protein was slightly elevated at 1.3. EMG and nerve conduction studies done by Dr Sainz on 08/07/12 were reviewed, and showed normal rightperoneal, tibial, median and ulnar motor conduction studies including F-wave latencies; normal right superficial peroneal, sural, median and ulnar sensory conduction studies; and needle EMG evidencesof reinnervation in the right extensor carpi ulnaris and first dorsal interosseous muscle of the carrasco d, but several other muscles from her right [...] her feet that could be possibly on thebasis of a small fiber neuropathy. With the latter in mind, I am arranging for her to have some quantitative sensory testing for warm and cold thresholds in her right hand and foot, and also a skin biopsy to look at intraepidermal nerve fiber density from her right foot, lateral calf sparing the area of tattoo and thigh. There is room to consider [...] me in 3 months. Electronically Signed by Zcahery Walters MD 11/28/2012 10:50 Zachery Walters MD - Zachery Walters MD - Job ID: SM Doc ID: [id number] Ext Doc ID: [id number] cc: GIULIA Byrne MD * Zachery Walters MD - 11/05/2012 1354 EST This office note has been dictated. documented in this encounter Plan of Treatment Upcoming Encounters Date Type Department Care Team (Late st Contact Info) Description 04/27/2024 14:[address] [facility] Neurology - S [place] [address] [place] [phone] Kj Gloria MD PhD 1 [facility] 2 [place] [phone] 04/30/2024 9:30 EDT Office Visit [facility] Interventional Pain [address] [place], [place] [phone] Catalino Garrett MD [address] [place] [address] 09/18/2024 11:[address] [facility] Bariatric Surgery - [place] [address] [place], [place] [phone] Allen Thompson PA-C 111 [facility] 5 [place] [phone] Scheduled Referrals Name Type Priority Associated Diagnoses Orde r Schedule AMB CONSULT NEUROLOGY Outpatient Referral Routine Dysesthesia Ordered: 11/05/2012 documented as of this encounter Visit Diagnoses Diagnosis Dysesthesia- Primary Disturbance of skin sensation documented in this encounter Discontinued Medications Medication Sig Discontinue Reason Start Date End Da te oxycodone (ROXICODONE) 5 mg immediate release tablet Take 1-2 Tabs by mouth every 4 hours as needed for Pain. 09/29/2012 11/05/2012 documented as of this encounter Historical Medications * This list may reflect changes made after this encounter. Medication Sig Dispensed Refills Start Date End Date duloxetine (CYMBALTA) 60 mg capsule Take 60 mg by mouth daily. Take with 30mg cap to = 90mg dose 02/03/2015 added in this encounter Care Teams Superintendent Cemetery Relationship Specialty Start Date End Date Juma Herrera MD [address] [place] [phone] PCP - General 09/25/12 12/07/18 documented as of this encounter
--- OUTSIDE RECORDS SUMMARY | 2024-04-22 23:53 | XMS_ITS | Encounter Summary ---
Author Organization [facility] Address [address] [place] [address] Care Team Providers Care Aitchbone Breaker Name Role Phone Brian Lindsay MD Primary Care Provider Unavail able Reason for Visit * Reason Comments Foot Pain right ankle/foot. MR Anika take yesterday. Encounter Details Date Type Department Care Team (Late st Contact Info) Description 08/16/2011 11:30 EST Office Visit [facility] Foot & Ankle Program - [address] [address] Catalino Keys MD [address] [place] [address] Os trigonum; Tarsal tunnel syndrome of right side; Foot pain, right Social History Tobacco Use Types Packs/Day [...] Dispensed Refills Start Date End Da te gabapentin (NEURONTIN) 300 mg capsuleIndications:Foot pain, right Take 1 Cap by mouth 3 times daily for 30 days. 90 Cap 3 08/16/2011 09/15/2011 documented in this encounter Progress Notes * Catalino Keys MD - 08/16/2011 1218 EST Diagnosis: 1. 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 Tarsal tunnel syndrome of right side (355.5) Subjective: Hannah Spain is being seen today for Foot Pain . She was originally sent as a consultation from Dr. Keys Ms Spain comes in today for followup of her right tarsal tunnel pain. We saw her for an MRI becauseof some abnormalities noted on her plain films [...] with consistent clinical signs. We discussed the possibility of a tarsal tunnel release. Risks and benefits [...] Info) Description 04/27/2024 14:30 EDT Telemedicine [facility] Neurology - S [place] [address] [place], [place] [phone] Kj Gloria MD PhD 1 [facility], Level [address] [place] [phone] 04/30/2024 9:[address] [facility] Interventional Pain [address] [place], [place] [phone] Catalino Garrett MD [address] [place] [phone] 09/18/2024 11:00 EST Office Visit [facility] Bariatric Surgery 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 Reorder 06/18/2011 08/16/2011 documented as of this encounter Care Teams Aitchbone Breaker Relationship Specialty Start Date End Date Brian Lindsay MD PCP - General 04/11/11 10/23/11 documented as of this encounter
--- OUTSIDE RECORDS SUMMARY | 2024-04-22 23:53 | XMS_ITS | Encounter Summary ---
Author Organization [facility] Address [address] [place] [address] Care Team Providers Care Site Supervisor Name Role Phone Brian Lindsay MD Primary Care Provider Unavail able Reason for Visit * Reason Onset Date Comments Appointment Related 08/07/2011 MRI and Foll ow-up appointments Encounter Details Date Type Department Care Team (Late st Contact Info) Description 08/07/2011 Telephone [facility] Foot & Ankle Program - [address] [address] Catalino Keys MD [address] [place] [phone] Appointment Related (MRI and Follow-up appointments) Social History Tobacco Use Types Packs/Day Years [...] * Telephone Encounter - Andrea Victor - 08/07/2011 1552 EST Hannah confirmed she could make the following appointments: MRI Date: 08/15/11 Time: 2:45pm Location: [facility] Follow Up Physician: Ludmila Date: 08/16/11 Time: 11:30am Andrea Victor 08/07/2011 documented in this encounter Plan of Treatment Upcoming Encounters Date Type Department Care Team (Late st Contact Info) Description 04/27/2024 14:30 EDT Telemedicine [facility] Neurology - [address] [place] [address] [place], [place] [address] jK Gloria MD PhD 1 [facility], Level [address] [place] [phone] 04/30/2024 9:30 EDT Office Visit [facility] Interventional Pain [address] [place] [address] Catalino Garrett MD 62 [facility] [address] [place] [address] 09/18/2024 11:00 EST Office Visit [facility] Bariatric Surgery [facility] [address] [place], [place] [phone] Allen Thompson PA-C 111 [facility], Level [address] [place] [phone] documented as of this encounter Visit Diagnoses Not on filedocumented in this encounter Care Teams Site Supervisor Relationship Specialty Start Date End Date Brian Lindsay MD PCP - General 04/11/11 10/23/11 documented as of this encounter
--- OUTSIDE RECORDS SUMMARY | 2024-04-22 23:53 | XMS_ITS | Encounter Summary ---
Author Organization [facility] Address [address] [place] [address] Care Team Providers Care Osteopathic Resident Name Role Phone Unavailable Primary Care Provider Unavailabl e Encounter Details Date Type Department Care Team (Late Contact Info) Description 07/17/2007 14:13 EST Hospital Encounter [facility] - [place] [address] [place], [place] [address] Kj Child MD [address] [place] [phone] Social History Tobacco Use Types Packs/Day [...] 16:01 EDT documented as of this encounter Plan of Treatment Upcoming Encounters Date Type Department Care Team (Late Contact Info) Description 04/27/2024 14:30 EDT Telemedicine [facility] Neurology - S [address] [phone] Kj Gloria MD PhD 1 [facility] 2 [place] [phone] 04/30/2024 9:30 EDT Office Visit [facility] Interventional Pain [address] [place], [place] [phone] Catalino Garrett MD [address] [place] [address] 09/18/2024 11:00 EST Office Visit [facility] Bariatric Surgery - [place] [address] [place], [place] [phone] Allen Thompson PA-C 111 [facility], Level [address] [place] [phone] documented as of this encounter Procedures Procedure Name Priority Date/Time Associated Diagnosis Comments L SPINE 2-3 VIEWS 07/17/2007 14: 58 EST documented in this encounter Results * L SPINE 2-3 VIEWS (07/17/2007 14:58 EST) Anatomical Region Laterality Modality Other 07/17/2007 14:5 8 EST Narrative 02/21/2009 2:59 EDT lbp. s/p l5-s1 decomp/fusion 01/14/07. assess fusion maturation. L SPINE 2-3 VIEWS ??Jul 17, 2007 2:58:00 PM Signs and Symptoms:: ??lbp. ??s/p l5-s1 decomp/fusion 01/14/07. assess fusion maturation. Comparison: 04/10/2007 Findings: And upright lateral view of the lower lumbar spine and Geronimo view were obtained. The patient has had pedicle screw and beverly fixation of L5-S1. There is minimal anterolisthesis of L5, stable from previously. There is no evidence of hardware failure. Bilateral bone graft is present and a neurostimulator device overlies L5-S1. Procedure Note Juan Jose Dye MD - 02/21/2009 lbp. s/p l5-s1 decomp/fusion 01/14/07. assess fusion maturation. L SPINE 2-3 VIEWS Jul 17, 2007 2:58:00 PM Signs and Symptoms:: lbp. s/p l5-s1 decomp/fusion 01/14/07. assess fusion maturation. Comparison: 04/10/2007 Findings: And upright lateral view of the lower lumbar spine and Geronimo view were obtained. The patient has had pedicle screw and beverly fixation of L5-S1. There is minimal anterolisthesis of L5, stable from previously. There is no evidence of hardware failure. Bilateral bone graft is present and a neurostimulator device overlies L5-S1. Kj Child MD IMG DIAGNOSTIC I MAGING ORDERABLES documented in this encounter Visit Diagnoses Not on filedocumented in this encounter Additional Health Concerns Infection Onset Date Last Indicated Resolved Time COVID-19 08/15/2021 08/15/2021 09/04/2021 22:1 5 EST documented as of this encounter
--- OUTSIDE RECORDS SUMMARY | 2024-04-22 23:53 | XMS_ITS | Encounter Summary ---
Author Organization [facility] Address [address] [place] [address] Care Team Providers Care Ash Kier Boiler Name Role Phone Brian Lindsay MD Primary Care Provider Unavail able Encounter Details Date Type Department Care Team (Late Contact Info) Description 06/29/2011 Abstract [facility] Foot & Ankle Program - [facility] [address] [facility] [place] [address] Catalino Keys MD [address] [place] [phone] Social History Tobacco Use Types [...] Info) Description 04/27/2024 14:30 EDT Telemedicine [facility] Neurology - [address] [phone] Kj Gloria MD PhD 1 [facility], Level [address] [place] [phone] 04/30/2024 9:30 EDT Office Visit [facility] Interventional Pain [address] [place] [address] Catalino Garrett MD 62 [facility] [address] [place] [address] 09/18/2024 11:00 EST Office Visit [facility] Bariatric Surgery - [place] [address] [place], [place] [address] Allen Thompson PA-C [address] [place] [address], [address] [place] [phone] documented as of this encounter Visit Diagnoses Not on filedocumented in this encounter Care Teams Ash Kier Boiler Relationship Specialty Start Date End Date Brian Lindsay MD PCP - General 04/11/11 10/23/11 documented as of this encounter
--- OUTSIDE RECORDS SUMMARY | 2024-04-22 23:53 | XMS_ITS | Encounter Summary ---
Author Organization [facility] Address [address] [place] [address] Care Team Providers Care Check Inspector Name Role Phone Unavailable Primary Care Provider Unavailabl e Encounter Details Date Type Department Care Team (Late Contact Info) Description 10/25/2006 9:19 EST Hospital Encounter [facility] - [place] [address] [place], [place] [address] Kj Child MD [address] [place] [phone] Social History Tobacco Use Types Packs/Day [...] [facility] Neurology - S [address] [address] Kj Gloria MD PhD 1 [facility] 2 [place] [phone] 04/30/2024 9:30 EDT Office Visit [facility] Interventional Pain [address] [place], [place] [phone] Catalino Garrett MD [address] [place] [address] 09/18/2024 11:00 EST Office Visit [facility] Bariatric Surgery - [place] [address] [place], [place] [phone] Allen Thompson PA-C 111 [facility], Level [address] [place] [phone] documented as of this encounter Procedures Procedure Name Priority Date/Time Associated Diagnosis Comments MR LUMBAR SPINE W/WO CONTRAST 11/15/2006 10:35 EDT documented in this encounter Results * MR LUMBAR SPINE W/WO CONTRAST (11/15/2006 10:35 EDT) Anatomical Region Laterality Modality Other 11/15/2006 10:3 5 EDT Narrative 03/02/2009 10:54 EDT low back pain,s/p l5-s1 discectomy Lumbar Spine MR with Contrast. Indication: ??Lower back pain following a prior discectomy at the L5-S1 level in 1999. Technique: ??Sagittal T1 and T2 images are obtained along with transaxial T1 and T2 images and coronal T2 images precontrast. ??After the administration of intravenous contrast, sagittal and axial T1 images are obtained with fat-suppression. There no prior lumber spine MR studies for comparison. Comparison: ??Comparison is made to the prior plain film radiographs dating back to April, and September,. 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 Patient has had prior right-sided surgery at the L5-S1 level with postsurgical changes again identified. On today's examination, there is a recurrent disc herniation seen in a right paracentral location at the L5-S1 level which creates thecal sac effacement, right recess narrowing, and mild right foraminal narrowing. There is close proximity of extruded disc material to the exiting right S1 nerve root which could result in radiculopathy. Remaining disc space levels demonstrate desiccation with loss of normal disc space signal on the long TR scans. ??The conus medullaris ends normally at the L1-L2 level. At the L4-L5 level, no kay herniation is seen. There is mild disc bulging but no significant central canal stenosis is present. At the L3-L4 level, no disc herniation is present. No significant central canal stenosis is seen. At the L2-L3 level, no disc herniation, foraminal narrowing, or central canal stenosis is seen. At the L1-L2 level, ??no disc herniation, foraminal narrowing, or central canal stenosis is seen. On the coronal sequence, there is minimal curvature toward the right. Impression: 1. Status post prior right-sided surgery L5-S1 level with postoperative changes noted and evidence of recurrent disc herniation in a right paracentral location which creates thecal sac effacement anteriorly as well as right lateral recess stenosis and right-sided foraminal narrowing. There may be compression on the exiting right S1 nerve root, which could result in radiculopathy. 2. Suggestion of bilateral pars defects at the L5 level, better seen on prior radiographs dating back to 1999. No significant listhesis is seen on the [...] images precontrast. After the administration of intravenous contrast, sagittal and axial T1 images are obtained with fat-suppression. There no prior lumber spine MR studies for comparison. Comparison: Comparison is made to the prior plain film radiographs dating back to April, and September,. 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 Patient has had prior right-sided surgery at the L5-S1 level with postsurgical changes again identified. On today's examination, there is a recurrent disc herniation seen in a right paracentral location at the L5-S1 level which creates thecal sac effacement, right recess narrowing, and mild right foraminal narrowing. There is close proximity of extruded disc material to the exiting right S1 nerve root which could result in radiculopathy. Remaining disc space levels demonstrate desiccation with loss of normal disc space signal on the long TR scans. The conus medullaris ends normally at the L1-L2 level. At the L4-L5 level, no kay herniation is seen. There is mild disc bulging but no significant central canal stenosis is present. At the L3-L4 level, no disc herniation is present. No significant central canal stenosis is seen. At the L2-L3 level, no disc herniation, foraminal narrowing, or central canal stenosis is seen. At the L1-L2 level, no disc herniation, foraminal narrowing, or central canal stenosis is seen. On the coronal sequence, there is minimal curvature toward the right. Impression: 1. Status post prior right-sided surgery L5-S1 level with postoperative changes noted and evidence of recurrent disc herniation in a right paracentral location which creates thecal sac effacement anteriorly as well as right lateral recess stenosis and right-sided foraminal narrowing. There may be compression on the exiting right S1 nerve root, which could result in radiculopathy. 2. Suggestion of bilateral pars defects at the L5 level, better seen on prior radiographs dating back to 1999. No significant listhesis is seen on the MR examination, although one was detected on recent plain film radiographs from September,, measuring approximately 4 mm by that report. Kj Child MD IMG MRI ORDERABL ES documented in this encounter Visit Diagnoses Not on filedocumented in this encounter Additional Health Concerns Infection Onset Date Last Indicated Resolved Time COVID-19 08/15/2021 08/15/2021 09/04/2021 22:1 5 EST documented as of this encounter
--- OUTSIDE RECORDS SUMMARY | 2024-04-22 23:53 | XMS_ITS | Encounter Summary ---
Author Organization [facility] Address [address] [place] [address] Care Team Providers Care Licensing Worker Name Role Phone Unavailable Primary Care Provider Unavailabl e Encounter Details Date Type Department Care Team (Late st Contact Info) Description 07/17/2007 Before PRISM Converted Visit (Maple) [facility] - Maple conversion [address] [place], [place] [address] Kj Child MD [address] [place] [address] [place] [address] Social History Tobacco Use Types Packs/Day Years Used Date Smoking Tobacco: Never Assessed Sex and Gender Information Value Date Recorded Sex Assigned at Not on file Gender Identity Female 10/05/2021 12:31 EST Sexual Orientation Not on file documented as of this encounter Progress Notes * Kj Child MD - 07/13/2009 1412 EST Spine [place] [facility] (SpINE) Orthopaedics and Rehabilitation [address] [place] [id number] PROGRESS/FOLLOWUP NOTE - 07/17/2007 Primary Care Provider: Brian Lindsay MD Referred by: Brian Lindsay MD Reason [...] to complain of pain into her back and into her right leg. She will occasionally use a cane for her ambulation as it makes her back and leg feel better. She notes that she will have some days where she has almost no pain, others when it is quite bothersome. She feels her symptoms are slightly better than before surgery, but not signific antly. She is taking no pain medication. The [...] AP and lateral lumbar films show her hardwarein good position, fusion appears to be completely [...] I think it is unlikely she has arotator cuff tear, but it is certainly possible. I am doubtful that it is a radiculopathy given that most of the provocative intrinsic shoulder maneuvers reproduce symptoms and she does not have any d eficits right now. I discussed the nature of her shoulder pain and the options with her as well as ongoing therapy, evaluation with MRI, possible subacromial injection, continued therapy, and at thispoint she wishes to pursue the following plan. [...] Kj Child MD - agustina Job ID: [id number] Doc ID: [id number] cc: MD agustina Flores Job ID: [id number] Doc ID: [id number] cc: Brian Lindsay MD documented in this encounter Plan of Treatment Upcoming Encounters Date Type Department Care Team (Late st Contact Info) Description 04/27/2024 14:30 EDT Telemedicine [facility] Neurology - [address] [place] [address] [place], [place] [id number] Kj Gloria MD PhD 1 [facility], Level 2 [place] [address] 04/30/2024 9:30 EDT Office Visit [facility] Interventional Pain [address] [place] [address] Catalino Garrett MD 62 [facility] [address] [place] [address] 09/18/2024 11:00 EST Office Visit [facility] Bariatric Surgery - [place] [address] [place] [address] Allen Thompson PA-C [address] [place] [address], [facility] 5 [place] [address] documented as of this encounter Visit Diagnoses Not on filedocumented in this encounter
--- OUTSIDE RECORDS SUMMARY | 2024-04-22 23:53 | XMS_ITS | Encounter Summary ---
Author Organization [facility] Address [address] [place] [address] Care Team Providers Care Cook House Supervisor Name Role Phone Brian Lindsay MD Primary Care Provider Unavail able Reason for Referral * Radiology Services (Routine) - Closed Specialty Diagnoses / Procedures Referred By Wili mireles Referred To Contact Diagnoses Tarsal tunnel syndrome of right side Procedures MRI ANKLE Catalino Keys MD [address] [place] [phone] Referral ID Status Reason Start Date Expiration Date Visits Re quested Visits Authorized [id number] Closed 08/07/2011 1 1 Encounter Details Date Type Department Care Team (Late st Contact Info) Description 08/03/2011 Orders Only [facility] Foot & Ankle Program - [address] [place] [address] Catalino Keys MD [address] [place] [phone] Tarsal tunnel syndrome of right side [...] encounter Progress Notes * Andrea Victor - 08/03/2011 1142 EST Hannah requests an external MRI referral which she would like to have done at . We were unable to coordinate a [facility] MRI and same day follow-up due to her schedule. Andrea Victor 08/03/2011 documented in this encounter Plan of Treatment Upcoming Encounters Date Type Department Care Team (Late st Contact Info) Description 04/27/2024 14:30 EDT Telemedicine [facility] Neurology - [address] [place] 1 [place], [place] [phone] Kj Gloria MD PhD 1 [facility], Level 2 [place] [phone] 04/30/2024 9:30 EDT Office Visit [facility] Interventional Pain 62 [facility] [place], [place] [phone] Catalino Garrett MD 62 [facility] [address] [place] [phone] 09/18/2024 11:00 EST Office Visit [facility] Bariatric Surgery [facility] [address] [place] [address] Allen Thompson, PA-C 111 [facility], Level 5 [place] [phone] Scheduled Orders Name Type Priority Associated Diagnoses Orde r Schedule MRI ANKLE Imaging Routine Tarsal Tunnel Syndrome Of Right Side 08/03/2011 documented as of this encounter Visit Diagnoses Diagnosis Tarsal tunnel syndrome of right side- Primary Tarsal tunnel syndrome documented in this encounter Care Teams Cook House Supervisor Relationship Specialty Start Date End Date Brian Lindsay MD PCP - General 04/11/11 10/23/11 documented as of this encounter
--- OUTSIDE RECORDS SUMMARY | 2024-04-22 23:53 | XMS_ITS ---
Author Organization [facility] Address [address] [place] [address] Care Team Providers Care Reflector Driller And Deburrer Name Role Phone Juma Herrera MD Unavailable Curtis Burns MD Primary Care Provider [phone] Headache Status:Enrolled (Active) Start date:03/10/2021 Enrollment date:03/10/2021 Current support & services provided:Clinical Management, Refill Management Linked medications:erenumab-aooe (Active) Linked problems:Chronic migraine without aura without status migrainosus, not intractable (Active) Continued Care and Services Coordination
--- OUTSIDE RECORDS SUMMARY | 2024-04-22 23:53 | XMS_ITS | Encounter Summary ---
Author Organization [facility] Address [address] [place] [address] Care Team Providers Care Reimbursement Consultant Name Role Phone Brian Lindsay MD Primary Care Provider Unavail able Reason for Visit * Reason Comments Back Pain Encounter Details Date Type Department Care Team (Late st Contact Info) Description 05/16/2011 10:00 EDT Office Visit [facility] Spine Program - [address] [place] [address] Kj Song PA-C [facility] tr[facility]rue [facility] [place] [address] Low back pain (Primary Dx) Social History Tobacco Use Types Packs/Day Years Used Date Smoking Tobacco: Former Cigarettes Q uit: 01/13/2009 Alcohol Use Standard Drinks/Week Comments Yes 0 (1 standard drink = 0.6 oz pur e alcohol) Sex and Gender Information Value Date Recorded [...] Progress Notes * Kj Song PA - 05/16/2011 1057 EDT [...] of acute nerve root impingement. Her physical exam is inconsistent in that she can heel and toe walk without difficulty but her strength testing would not support that ability. There may be a degree of psychosocial overlay in her pain. The burning sensation in her feet are not clearly associated with the lumbar spine and may be a result of plantarfasciitis vs tarsal tunnel syndrome. At this point she would like to move forward with the following plan. Other Orders Placed This Visit Procedure ??? L spine 4 or more views Plan: emg Activity as tolerated without limitation Continue current pain management regime Follow up Post emg The patient's past surgical history is significant for an L5-S1 diskectomy performed by Dr Child in 1999 and L5-S1 decompression and fusion performed by Mateusz in 2006. Postsurgery she had persistent back and right lower extremity symptoms in an L5 distribution. Since that time she has had resolution of her leg symptoms and had constant back pain. Three months ago she noted increased back discomfort described as burning associated with bilateral foot burning. She had occasional right buttocks and right lateral thigh burning sensation as well, but this is not daily while her feet are daily and constant. Her discomfort is exacerbated by everything. She finds relief only with care giver. She had seen a physical therapist and a produce associate and was diagnosed with plantar fasciitis. She [...] Telemedicine [facility] Neurology - [address] [address] Kj Gloria MD PhD 1 [facility], Level 2 [place] [phone] 04/30/2024 9:30 EDT Office Visit [facility] Interventional Pain [address] [place] [address] Catalino Garrett MD [address] [facility] [address] [place] [address] 09/18/2024 11:00 EST Office Visit [facility] Bariatric Surgery - [place] [address] [place], [place] [phone] Allen Thompson PA-C 111 [facility], [facility], Level [address] [place] [phone] documented as of this encounter Procedures Procedure Name Priority Date/Time Associated Diagnosis Comments L SPINE 4 OR MORE VIEWS Routine 05/16/2011 10:40 EDT Low back pain documented in this encounter Results * L SPINE 4 OR MORE VIEWS (05/16/2011 10:40 EDT) Anatomical Region Laterality Modality Other 05/16/2011 10:4 0 EDT 05/16/2011 14:02 EDT Narrative 05/16/2011 14:02 EDT L SPINE 4 OR MORE VIEWS ??May 16, 2011 10:40:00 AM Signs and Symptoms/Comments: ??724.2-LOW BACK PAIN-I9 low back pain AP, lateral, lateral flexion-extension views compared to films of July and April 2007. Posterior fixator at the L5-S1 level is a bit differently imaged on the present AP film compared to the April and July 2007 study but no abnormality ??demonstrated. No bone destruction is demonstrated. SI joints are poorly visualized but no definite abnormality. The lateral view shows no break in the wires connected to the electronic device. Anterior slip of L5-S1 is similar. No other malalignment is demonstrated. No compression fractures are seen. No dynamic instability with flexion versus extension. Some degenerative facet changes suggested at the L4-L5 level which may be increased.. Present examination shows a linear lucency overlying the region of the pars at L3. This could be further evaluated with CT scan or oblique views if indicated. Impression: No dynamic instability and no new compression fractures. No hardware failure. Possible progression of degenerative facet change at L4-L5. Suspect pars abnormality at the L3 level. Evaluation for pars defects would be best done with CT or oblique plain films. Procedure Note 05/16/2011 L SPINE 4 OR MORE VIEWS May 16, 2011 10:40:00 AM Signs and Symptoms/Comments: 724.2-LOW BACK PAIN-I9 low back pain AP, lateral, lateral flexion-extension views compared to films of July and April 2007. Posterior fixator at the L5-S1 level is a bit differently imaged on the present AP film compared to the April and July 2007 study but no abnormality demonstrated. No bone destruction is demonstrated. SI joints are poorly visualized but no definite abnormality. The lateral view shows no break in the wires connected to the electronic device. Anterior slip of L5-S1 is similar. No other malalignment is demonstrated. No compression fractures are seen. No dynamic instability with flexion versus extension. Some degenerative facet changes suggested at the L4-L5 level which may be increased.. Present examination shows a linear lucency overlying the region of the pars at L3. This could be further evaluated with CT scan or oblique views if indicated. Impression: No dynamic instability and no new compression fractures. No hardware failure. Possible progression of degenerative facet change at L4-L5. Suspect pars abnormality at the L3 level. Evaluation for pars defects would be best done with CT or oblique plain films. Kj Song PA-C [facility] ORDERABLES documented in this encounter Visit Diagnoses Diagnosis Low back pain- Primary Lumbago documented in this encounter Historical Medications * This list may reflect changes made after this encounter. Medication Sig Dispensed Refills Start Date End Date duloxetine (CYMBALTA) 30 mg capsule Take 3 Capsules by mouth daily. Take with 60mg cap to =90mg dose 05/16/2011 duloxetine (CYMBALTA) 60 mg capsule Take 60 mg by mouth daily. 10/24/2011 amlodipine (NORVASC) 2.5 mg tablet Take 2.5 mg by mouth 2 times daily. 05/16/2011 10/24/2011 topiramate (TOPAMAX) 100 mg tablet Take 200 mg by mouth 2 times daily. 02/03/2015 gabapentin (NEURONTIN) 300 mg capsule Take 300 mg by mouth 3 times daily. 06/18/2011 added in this encounter Care Teams Reimbursement Consultant Relationship Specialty Start Date End Date Brian Lindsay MD PCP - General 04/11/11 10/23/11 documented as of this encounter
--- OUTSIDE RECORDS SUMMARY | 2024-04-22 23:53 | XMS_ITS | Encounter Summary ---
Author Organization [facility] Address [address] [place] [address] Care Team Providers Care Manager Of Tires Sales Name Role Phone Brian Lindsay MD Primary Care Provider Unavail able Encounter Details Date Type Department Care Team (Late st Contact Info) Description 06/06/2011 Documentation Visit [facility] Spine Program - [address] [place] [address] Kj Song PA-C [address] [facility] [place] [address] Social History Tobacco Use Types [...] as of this encounter Progress Notes * Ulices Granger - 06/06/2011 1530 EDT Uploaded CD to Hot Dot; sent back to pt. documented in this encounter Plan of Treatment Upcoming Encounters Date Type Department Care Team (Late st Contact Info) Description 04/27/2024 14:30 EDT Telemedicine [facility] Neurology - S [address] [address] Kj Gloria MD PhD [address] [place] [address] 2 [place] [phone] 04/30/2024 9:30 EDT Office Visit [facility] Interventional Pain [address] [place], [place] [phone] Catalino Garrett MD 62 [facility] [address] [place] [address] 09/18/2024 11:00 EST Office Visit [facility] Bariatric Surgery [facility] [address] [place] [address] Allen Thompson PA-C 111 [facility], Level [address] [place] [phone] documented as of this encounter Visit Diagnoses Not on filedocumented in this encounter Care Teams Manager Of Tires Sales Relationship Specialty Start Date End Date Brian Lindsay MD PCP - General 04/11/11 10/23/11 documented as of this encounter
--- OUTSIDE RECORDS SUMMARY | 2024-04-22 23:53 | XMS_ITS | Encounter Summary ---
Author Organization [facility] Address [address] [place] [address] Care Team Providers Care Packaging Engineer Name Role Phone Unavailable Primary Care Provider Alesha [email or web address] Encounter Details Date Type Department Care Team (Late st Contact Info) Description 09/19/2006 Before PRISM Converted Visit (Maple) [facility] - Maple conversion [address] [place] [address] Harry Abreu MD Social History Tobacco Use Types Packs/Day Years Used Date Smoking Tobacco: Never Assessed Sex and Gender Information Value Date Recorded Sex Assigned at Not on file Gender Identity Female 10/05/2021 12:31 EST Sexual Orientation Not on file documented as of this encounter Consult Notes * Harry Abreu MD - 09/06/2009 0345 EST Spine [facility] (SpINE) Orthopaedics & Rehabilitation [address] [place] [address] CONSULTATION - UT: Right buttock pain and right lower extremity pain. S: Ms. Spain comes in today for spinal consultation from MARGARITA Chaudhari MD. She has a past medical history significant for a [...] Since that time she states that she hasdeveloped pain in the right buttock and this has radiated to the anterior thigh and lateral thigh as well as posterior thigh. She has some groin discomfort. She has had an achy discomfort over the anterior lilly, but that has not been a predominant symptom. She has had extensive evaluations and treatments postoperatively through the [facility]. She has had many injections pe rformed including epidurals which have not given her any substantial relief. She was actually evaluated by Dr. Child in of the year 1999 because of her ongoing discomfort and at that time it was notfelt that she should proceed with further surgical intervention without discography. Today I had the opportunity to review notes from Dr. Bowers, Ms. Farias, Dr. Whiting, Dr. Child and also notes from the Anesthesia Pain Service at [facility]. Ms. Spain has also completed a patient intake questionnaire quite thoroughly. She presently uses Vicodin, soma andibuprofen on anas needed basis. She also is using Cymbalta, Norvasc and Levoxyl. She has had a cholecystectomy and tubal ligation. She denies constitutional symptoms. Her stated height is 5 8?? and her weight is 247 pounds. O: On the exam today I find her to be very cooperative. She is pleasant and gives a straightforwardhistory. Sheis able to ambulate today without an [...] the sitting position the straight leg raising doesnot produce any radicular symptoms. Straight leg raising on the right does produce some right buttock discomfort. Reflexes are present at physiologic levels at knees and ankles. Toes are downgoing; there is no sustained clonus. I find no evidence of motor or sensory deficits. In the supine position there is no significant pain with rotatory motion through the hips, althoughwith internal rotation she has some groin discomfort. She did have a MRI with and without contrast of the lumbar spine in March of 2000. This is available for my review today. I see no evidence of a disc herniation. There is minimal bulging of the L5-S1 disc. I obtained X-rays today including a lateral flexion and extension of the lumbar spine and an AP pelvis. Pelvic X-rays was normal. The lateralflexion and extension reveals bilateral L5 spondylolysis and she develops a grade 1 slip with forward flexion. This is compared with films done in 1999 and there has been no change. A: This woman continues [...] lower extremity pain and told her that shewould have to have a very elaborate work up prior to consideration of any surgical intervention. P: She states that she is uncomfortable enough that she wants to proceed with further assessment. We are going to get a consult with Dr. Barraza to do EMGstudies to assess the right lower extremity discomfort. She is also going to have the opportunity again to meet with Dr. Child who did discuss with her in the past work up for surgery. Signed by Harry Abreu MD 09/24/2006 07:59 Criselda Noyola MD Harry Abreu MD - Stephanie Abreu MD A - cmd Job ID: [id number] Document ID: [id number] cc: MARGARITA Chaudhari MD Thomas J Zweber, MD documented in this encounter Plan of Treatment Upcoming Encounters Date Type Department Care Team (Late st Contact Info) Description 04/27/2024 14:30 EDT Telemedicine [facility] Neurology - [address] [id number] Kj Gloria MD PhD [address] [place] [address], Level 2 [place] [address] 04/30/2024 9:[address] [facility] Interventional Pain [address] [place] [address] Catalino Garrett MD 62 [facility] [address] [place] [address] 09/18/2024 11:00 EST Office Visit [facility] Bariatric Surgery - [place] [address] [place], [place] [address] Allen Thompson PA-C [address] [place] [address], [facility], Level [address] [place] [address] documented as of this encounter Visit Diagnoses Not on filedocumented in this encounter
--- OUTSIDE RECORDS SUMMARY | 2024-04-22 23:53 | XMS_ITS | Encounter Summary ---
Author Organization [facility] Address [address] [place] [address] Care Team Providers Care Panel Edge Sealer Name Role Phone Unavailable Primary Care Provider Unavailabl e Encounter Details Date Type Department Care Team (Late st Contact Info) Description 10/03/2006 Before PRISM Converted Visit (Maple) [facility] - Maple conversion [address] [place] [address] Khris Barraza MD [address] [place] [phone] Social History Tobacco Use Types Packs/Day Years Used Date Smoking Tobacco: Never Assessed Sex and Gender Information Value Date Recorded Sex Assigned at Not on file Gender Identity Female 10/05/2021 12:31 EST Sexual Orientation Not on file documented as of this encounter Procedure Notes * Khris Barraza MD - 09/18/20092052 EST PHYSICAL MEDICINE/REHABILITATION ELECTRODIAGNOSTIC MEDICINE CONSULTATION DATE OF SERVICE: 10/03/2006 ATTENDING PHYSICIAN: Khris Barraza MD REQUESTING PHYSICIAN: Haryr Abreu MD PRIMARY CARE PHYSICIAN: Brian Lindsay MD HISTORY: The patient is a 32-year-old female who has been struggling with back problems for over seven years. She states that even in high school she had ongoing back pain. This eventually led to a work-up and she underwent L-5, S-1 discectomy in November 1999. She states that this did not substantially help her pain. She has seen multiple physicians along the way including Dr. Bowers, Dr. Farias, Dr. Whiting, and Dr. Child. She has been followed by the Pain Service at [facility]. She saw Dr. Abreu for a comprehensive [...] she feels on the right greater than left lumbosacral junction. There is some weakness of right ankle dorsiflexion and right toe extension, although, it at times is inconsistent and has a giveaway type consistency. The [...] by Khris Barraza MD 10/08/2006 08:08 Alvaro Malik MD Khris Barraza MD - Wade Barraza MD kmt A - Job ID: [id number] Document ID: [id number] cc: MD Brian Segundo MD documented in this encounter Plan of Treatment Upcoming Encounters Date Type Department Care Team (Late st Contact Info) Description 04/27/2024 14:30 EDT Telemedicine [facility] Neurology - [address] [phone] Kj Gloria MD PhD 1 [facility] Level 2 [place] [phone] 04/30/2024 9:30 EDT Office Visit [facility] Interventional Pain 62 [facility] [place], [place] [phone] Catalino Garrett MD 62 [facility] [address] [place] [address] 09/18/2024 11:00 EST Office Visit [facility] Bariatric Surgery - [place] [address] [place], [place] [phone] Allen Thompson PA-C 111 [facility], Level [address] [place] [address] documented as of this encounter Visit Diagnoses Not on filedocumented in this encounter
--- OUTSIDE RECORDS SUMMARY | 2024-04-22 23:53 | XMS_ITS | Encounter Summary ---
Author Organization [facility] Address [address] [place] [address] Care Team Providers Care Director Of Therapy Services Name Role Phone Brian Lindsay MD Primary Care Provider Unavail able Encounter Details Date Type Department Care Team (Late Contact Info) Description 05/28/2011 Abstract [facility] Spine Program - [place] [address] [place] [address] Kj Song PA-C [address] [place] [address] [place] [address] Social History Tobacco Use Types [...] [facility] Neurology - [address] [id number] Kj Gloria MD PhD 1 [facility], Level 2 [place] [phone] 04/30/2024 9:30 EDT Office Visit [facility] Interventional Pain [address] [place] [address] Catalino Garrett MD [address] [facility] [address] [place] [address] 09/18/2024 11:00 EST Office Visit [facility] Bariatric Surgery - [place] [address] [place] [address] Allen Thompson PA-C [address] [place] [address] 5 [place] [address] documented as of this encounter Visit Diagnoses Not on filedocumented in this encounter Historical Medications * This list may reflect changes made after this encounter. Medication Sig Dispensed Refills Start Date End Date ACETAMINOPHEN (TYLENOL ORAL) Take 650 mg by mouth as needed. 09/07/2015 added in this encounter Care Teams Director Of Therapy Services Relationship Specialty Start Date End Date Brian Lindsay MD PCP - General 04/11/11 10/23/11 documented as of this encounter
--- OUTSIDE RECORDS SUMMARY | 2024-04-22 23:53 | XMS_ITS | Encounter Summary ---
Author Organization [facility] Address [address] [place] [address] Care Team Providers Care Document Management Consultant Name Role Phone Donna Mohr NP Primary Care Provider [phone] Reason for Visit * Reason Onset Date Comments Other 10/29/2011 Encounter Details Date Type Department Care Team (Late st Contact Info) Description 10/29/2011 Telephone [facility] Foot & Ankle Program - [place] [address] Kristina Aaron LPN [address] [place] [address] Other Social History Tobacco Use Types Packs/Day [...] encounter Miscellaneous Notes * Telephone Encounter - Kristina Aaron LPN - 10/29/2011 1122 EST Tia has been instructed via phone as follows: 1. Surgical arrival time 10:30 am 2. Location- [facility] 3. Pre-Anesthetic fasting instructions 4. Medications DOS per instructions from Preoperative nurse 5. Shower or bath using antibacterial soap 6. Call office with any questions ([phone]) documented in this encounter Plan of Treatment Upcoming Encounters Date Type Department Care Team (Late st Contact Info) Description 04/27/2024 14:30 EDT Telemedicine [facility] Neurology - S [place] [address] [place], [place] [phone] Kj Gloria MD PhD 1 [facility], Level 2 [place] [address] 04/30/2024 9:[address] [facility] Interventional Pain 62 [facility] [place], [place] [id number] Catalino Garrett MD [address] [facility] [address] [place] [address] 09/18/2024 11:00 EST Office Visit [facility] Bariatric Surgery - [address] [phone] Allen Thompson PA-C 111 [facility], Level 5 [place] [phone] documented as of this encounter Visit Diagnoses Not on filedocumented in this encounter Care Teams Document Management Consultant Relationship Specialty Start Date End Date Donna Mohr NP [address] [place], [place] [id number] PCP - General 10/24/11 09/24/12 documented as of this encounter
--- OUTSIDE RECORDS SUMMARY | 2024-04-22 23:53 | XMS_ITS | Encounter Summary ---
Author Organization [facility] Address [address] [place] [address] Care Team Providers Care Labor Trainer Name Role Phone Unavailable Primary Care Provider Unavailabl e Encounter Details Date Type Department Care Team (Late st Contact Info) Description 01/02/2007 Before PRISM Converted Visit (Maple) [facility] - Maple conversion [address] [place], [place] [id number] Kj Child MD [address] [place] [address] [place] [address] Social History Tobacco Use Types Packs/Day Years Used Date Smoking Tobacco: Never Assessed Sex and Gender Information Value Date Recorded Sex Assigned at Not on file Gender Identity Female 10/05/2021 12:31 EST Sexual Orientation Not on file documented as of this encounter Progress Notes * Kj Child MD - 07/08/20092023 EST Spine [place] [facility] (SpINE) [facility]opaedics and Rehabilitation [address] [facility] [address] [facility] [address] PROGRESS/FOLLOWUP NOTE - 01/02/2007 PROBLEM 1. 50% [...] she felt made her no better or perhapsslightly worse. She has been treated with multiple episodes of therapy, modalities, pool therapy, land-based therapy, Work Hardening Program; she has been offereda functional catholic program at [facility] and the Level 4 program here whichshe has declined. She has undergone midline epidural, transforaminal epidural steroid injections, trigger point injections and pars defect injections with nolong lasting relief. She has had massage therapy, a TENS unit, muscle relaxants and medications. Shehas pain in her back and low in the lumbosacral junction, centrally radiating to the right buttock,lateral thigh and lateral calves. Her symptoms are worsened [...] L5-S1 with associated recurrent disk herniation at L5-S1. EMG demonstrates L5 root irritation. ASSESSMENT 1. Back and right leg pain symptoms consistentwith her spondylolisthesis, foraminal stenosis and recurrent HNP. Discussed options again including expectant management, medications, injections, therapy, or consideration of surgery with surgery being an L5-S1 decompression diskectomy and fusion with i liac crest graft, pedicle screws, ANNETTE fusionstimulator. We discussed the surgery would have a 50% chance of significant improvement, 50% chance no change in her symptoms, 1 or 2% worsened symptoms, the risks and complications including infection, deep venous thrombosis, pulmonary emboli, , neurological loss, pseudoarthrosis, hardware failure or migration, increased back pain, leg pain, duraltear, progressive degeneration above or below the surgery were all discussed. She understands theseand wishes to pursue surgery. We also discussed her postoperative narcotic use. She has a good support system with a psychiatrist, a counselor and a narcotic Anonymous sponsor. She has already set upa plan for treatment ofhow she is going to be in constant with these individuals for support postoperatively. We discussed that we would use only short acting medications, either Percocet or DilaudidWe would keep her on the medications to get control postoperatively, but gradually start weaning her off so that at six weeks she would be on no narcotic medication. She and her friendagree with thisapproach and she will continue to get support; she is fully supportive of that. 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 Interventional Pain [address] [place], [place] [phone] Catalino Garrett MD 62 [facility] [address] [place] [address] 09/18/2024 11:00 EST Office Visit [facility] Bariatric Surgery - [place] [address] [address] [place], [place] [phone] Allen Thompson, PA-C [address] [place] [address], [address] [place] [phone] documented as of this encounter Visit Diagnoses Not on filedocumented in this encounter
--- OUTSIDE RECORDS SUMMARY | 2024-04-22 23:53 | XMS_ITS | Encounter Summary ---
Author Organization [facility] Address [address] [place] [address] Care Team Providers Care Casino Duty Manager Name Role Phone Unavailable Primary Care Provider Unavailabl e Encounter Details Date Type Department Care Team (Late st Contact Info) Description 02/24/2007 Before PRISM Converted Visit (Maple) [facility] - Maple conversion [address] [place], [place] [address] Kj Child MD [address] [place] [address] [place] [address] Social History Tobacco Use Types Packs/Day Years Used Date Smoking Tobacco: Never Assessed Sex and Gender Information Value Date Recorded Sex Assigned at Not on file Gender Identity Female 10/05/2021 12:31 EST Sexual Orientation Not on file documented as of this encounter Progress Notes * Kj Child MD - 07/10/2009 1324 EST Spine [place] [facility] (SpINE) [facility]ics [facility] [address] [facility] [address] PROGRESS/FOLLOWUP NOTE - 02/24/2007 PROBLEM 1: 50% [...] to complain of discomfort in her back and into both legs. She feels like the leg symptoms are somewhat better than they were before surgery but still quite problematic but they are improving over the last several weeks. She is now taking only occasional muscle relaxant every couple days. She is not taking any narcotics or anti-inflammatories. She feels like her appetite is O.K. 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 OBJECTIVE Incisions are well healed. She is neurologically intact. X-rays: AP and lateral show her hardware in good position, fusion is consolidating appropriately. ASSESSMENT Patient [...] Child MD - Kj Child MD - [facility] Job ID: [id number] Doc ID: [id number] cc: DO Brian Petersen MD Thomas J Zweber, MD Tia Grabiel, [address] [place] [id number]* documented in this encounter Plan of Treatment Upcoming Encounters Date Type Department Care Team (Late st Contact Info) Description 04/27/2024 14:[address] [facility] Neurology - [address] [address] Kj Gloria MD PhD 1 [facility], Level [address] [place] [phone] 04/30/2024 9:30 EDT Office Visit [facility] Interventional Pain [address] [place] [address] Catalino Garrett MD 62 [facility] [address] [place] [address] 09/18/2024 11:[address] [facility] Bariatric Surgery - [place] [address] [place], [place] [address] Allen Thompson PA-C 111 [facility], [address] [place] [phone] documented as of this encounter Visit Diagnoses Not on filedocumented in this encounter
--- OUTSIDE RECORDS SUMMARY | 2024-04-22 23:53 | XMS_ITS | Encounter Summary ---
Author Organization [facility] Address [address] [place] [address] Care Team Providers Care Bottom Pounder [employer] Name Role Phone Unavailable Primary Care Provider Unavailabl e Encounter Details Date Type Department Care Team (Late st Contact Info) Description 01/14/2007 10:48 EDT - 01/17/2007 11:59 EDT Hospital Encounter [facility] General Surgery Unit [address] [place], [place] [address] Kj Child MD [address] [place] [address] [place] [address] Discharge Disposition: Home or Self Care Social [...] Care documented in this encounter OR Notes * OR Surgeon - Kj Child MD - 01/14/2007 0000 EDT PROCEDURE REPORT PT TYPE: IP SERVICE DATE: 01/14/2007 SURGEON: Wilfrid Taylor MDRobert D Monsey, MD PHARMACY TECHNICIAN ASSISTANT: Marques Oseguera MD PREOPERATIVE DIAGNOSIS L5 isthmic [...] measures. 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 MRI demonstrated an L5-S1 disk herniation and right-sided foraminal stenosis.After understanding the options as well as the risks and complications, she elected to pursue surgical intervention. NARRATIVE The patient was brought to the operating room, and after successful induction of general anesthesia, was turned prone on a well padded Woodrow table. Eyes, ears, nose, shoulders, elbows, hands, genitals, feet, and knees were all protected with no compression. She was prepped and draped in a sterilefashion. Amidline longitudinal incision was made in line with her previous incision. It was carriedsharply down through the skin and subcutaneous tissue and a subperiosteal dissection carried out tothe tips of the transverse processes of L5 and S1. A marker wasplaced on the L5 spinous process raymond lateral x-ray taken confirming our position. A [...] at L5. The posterolateral elements were decorticated. Corticocancellous bone graft obtained in the usual fashion from the iliac crest was packed on the transverse processes of L5 and the sacral ala after [...] Child MD - Charmaine Child MD Ziggy rocha Job ID: [id number] Document ID: [id number] cc: MD Meche Peres PA Lloyd Thompson, MD Michael T Walsh, MD documented in this encounter Plan of Treatment Upcoming Encounters Date Type Department Care Team (Late st Contact Info) Description 04/27/2024 14:30 EDT Telemedicine [facility] Neurology - [address] [id number] Kj Gloria MD PhD 1 [facility], Level 2 [place] [phone] 04/30/2024 9:30 EDT Office Visit [facility] Interventional Pain [address] [facility] [address] Catalino Garrett MD [address] [facility] [address] [place] [address] 09/18/2024 11:00 EST Office Visit [facility] Bariatric Surgery - [place] [address] [place], [place] [phone] Allen Thompson PA-C 111 [facility], [address] [place] [address] documented as of this encounter Procedures Procedure Name Priority Date/Time Associated Diagnosis Comments COMPLETE BLOOD COUNT AND DIFFERENTIAL Routine 01/17/2007 6:10 EDT BUN Routine 01/17/2007 6:10 EDT GLUCOSE, SERUM Routine 01/17/2007 6:10 EDT CREATININE Routine 01/17/2007 6:10 EDT ELECTROLYTES Routine 01/17/2007 6:10 EDT L SPINE 2-3 VIEWS 01/16/2007 9:4 9 EDT COMPLETE BLOOD COUNT AND DIFFERENTIAL Routine 01/16/2007 6:10 EDT BUN Routine 01/16/2007 6:10 EDT GLUCOSE, SERUM Routine 01/16/2007 6:10 EDT CREATININE Routine 01/16/2007 6:10 EDT ELECTROLYTES Routine 01/16/2007 6:10 EDT URINE CHEMICAL (DIP) & SEDIMENT (MICRO) WITHOUT REFLEX TO CULTURE Routine 01/16/2007 0:27 EDT COMPLETE BLOOD COUNT AND DIFFERENTIAL Routine 01/15/2007 5:40 EDT BUN Routine 01/15/2007 5:40 EDT GLUCOSE, SERUM Routine 01/15/2007 5:40 EDT CREATININE Routine 01/15/2007 5:40 EDT ELECTROLYTES Routine 01/15/2007 5:40 EDT L SPINE 1 VIEW 01/14/2007 16:21 EDT documented in this encounter Results * GLUCOSE, SERUM (01/17/2007 6:10 EDT) Glucose, Serum 94 70 - 100 mg/dl [facility] 01/17/2007 6:10 EDT 01/17/2007 6:41 EDT Kj Child MD CHEMISTRY & BLOO D GAS ORDERABLES Performing Organization Address [facility] Co de Phone Number [facility] [address] [place] [address] * (ABNORMAL) ELECTROLYTES (01/17/2007 6:10 EDT) Sodium 135(L) 136 - 145 mEq/L [facility] Potassium 3.6 3.5 - 5.0 mEq/L [facility] Chloride 99 96 - 110 mEq/L [facility] CO2 28 24 - 32 mEq/L [facility] 01/17/2007 6:10 EDT 01/17/2007 6:41 EDT Kj Child MD CHEMISTRY & BLOO D GAS ORDERABLES Performing Organization Address [facility] Co de Phone Number [facility] [address] [place] [address] * (ABNORMAL) CREATININE (01/17/2007 6:10 EDT) Creatinine 0.65(L) 0.7 - 1.5 mg/dl [facility] GFR, Calculated >60 ml/min/1.7 3m2 [facility] 01/17/2007 6:10 EDT 01/17/2007 6:41 EDT Kj Child MD CHEMISTRY & BLOO D GAS ORDERABLES Performing Organization Address City/[facility]/ZIP Co de Phone Number [facility] [address] [place] [address] * (ABNORMAL) HEMAGRAM AND DIFFERENTIAL (01/17/2007 6:10 EDT) WBC 9.10 4.0 - 12.4 K/cmm [facility] RBC 3.35(L) 3.86 - 5.04 M/cmm [facility] Hemoglobin 10.5(L) 11.6 - 15.2 gm/dl [facility] HCT 31.0(L) 34.9 - 44.4 % [facility] MCV 93 81 - 98 fl [facility] MCH 31.3 26.7 - 33.3 pg [facility] MCHC 33.8 32.1 - 35.9 gm/dl [facility] PLT 211 141 - 320 K/cmm [facility] RDW-CV 13.5 11.7 - 14.6 % [facility] % Neutrophils 70.6 45.5 - 79.7 % [facility] % Lymphocytes 15.9 15.0 - 46.8 % [facility] % Monocytes 10.6 1.8 - 12.0 % [facility] % Eosinophils 2.6 0.6 - 6.9 % [facility] % Basophils 0.3 0.2 - 1.4 % [facility] ABS Neutrophils 6.42 2.20 - 8.85 K/cmm [facility] ABS Lymphs 1.45 1.09 - 3.30 K/cmm [facility] ABS Monocytes 0.96(H) 0.1 - 0.8 K/cmm [facility] ABS Eosinophils 0.24 0.03 - 0.61 K/cmm [facility] ABS Basophils 0.03 0.01 - 0.11 K/cmm [facility] Type of Diff: Automated [facility] 01/17/2007 6:10 EDT 01/17/2007 6:41 EDT Kj Child MD PACKAGES & DNA P GORDO ORDERABLES [facility] [address] [place] [address] * (ABNORMAL) BUN (01/17/2007 6:10 EDT) BUN 5(L) 10 - 26 mg/dl [facility] 01/17/2007 6:10 EDT 01/17/2007 6:41 EDT Kj Child MD CHEMISTRY & BLOO D GAS ORDERABLES Performing Organization Address City/State/[facility] Co de Phone Number [facility] [address] [place] [address] * L SPINE 2-3 VIEWS (01/16/2007 9:49 EDT) Anatomical Region Laterality Modality Other 01/16/2007 9:49 EDT Narrative 03/02/2009 12:16 EDT L5-S1 fusion check upright alignment L SPINE 2-3 VIEWS ??January 16, 2007 9:49:57 AM Signs and Symptoms:: ??L5-S1 fusion check upright alignment Findings: There has been interval placement of fusion hardware in the lumbar sacral spine, with screws entering the L5 and S1 vertebral bodies. There is no evidence of hardware failure. Superficial staple lines are noted over the soft tissues of the back. There is an electronic bone stimulator overlying the soft tissues of the back with 2 wires that approximate the lumbosacral junction. Alignment of the lumbar spine is within normal limits. Air-fluid levels are noted in the right abdomen, probably the colon. Phleboliths are seen in the pelvis. Impression: Satisfactory alignment of the L-spine. No evidence of hardware failure. I have personally reviewed the images and the above interpretation and agree with the findings. Procedure Note Kj Duarte / Jun Ramos MD - 03/02/2009 L5-S1 fusion check upright alignment L SPINE 2-3 VIEWS January 16, 2007 9:49:57 AM Signs and Symptoms:: L5-S1 fusion check upright alignment Findings: There has been interval placement of fusion hardware in the lumbar sacral spine, with screws entering the L5 and S1 vertebral bodies. There is no evidence of hardware failure. Superficial staple lines are noted over the soft tissues of the back. There is an electronic bone stimulator overlying the soft tissues of the back with 2 wires that approximate the lumbosacral junction. Alignment of the lumbar spine is within normal limits. Air-fluid levels are noted in the right abdomen, probably the colon. Phleboliths are seen in the pelvis. Impression: Satisfactory alignment of the L-spine. No evidence of hardware failure. I have personally reviewed the images and the above interpretation and agree with the findings. Marques Oseguera MD IMG DIAGNOSTIC IMAGI NG ORDERABLES * GLUCOSE, SERUM (01/16/2007 6:10 EDT) Glucose, Serum 85 70 - 100 mg/dl [facility] 01/16/2007 6:10 EDT 01/16/2007 7:06 EDT Kj Child MD CHEMISTRY & BLOO D GAS ORDERABLES Performing Organization Address [facility] de Phone Number [facility] [address] [place] [address] * ELECTROLYTES (01/16/2007 6:10 EDT) Sodium 139 136 - 145 mEq/L [facility] Potassium 3.5 3.5 - 5.0 mEq/L [facility] Chloride 106 96 - 110 mEq/L [facility] CO2 29 24 - 32 mEq/L [facility] 01/16/2007 6:10 EDT 01/16/2007 7:06 EDT Kj Child MD CHEMISTRY & BLOO D GAS ORDERABLES Performing Organization Address [facility] Co de Phone Number [facility] [address] [place] [address] * CREATININE (01/16/2007 6:10 EDT) Creatinine 0.75 0.7 - 1.5 mg/dl [facility] GFR, Calculated >60 ml/min/1.7 3m2 [facility] 01/16/2007 6:10 EDT 01/16/2007 7:06 EDT Kj Child MD CHEMISTRY & BLOO D GAS ORDERABLES [facility] [address] [place] [address] * (ABNORMAL) HEMAGRAM AND DIFFERENTIAL (01/16/2007 6:10 EDT) WBC 11.02 4.0 - 12.4 K/cmm [facility] RBC 3.32(L) 3.86 - 5.04 M/cmm [facility] Hemoglobin 10.6(L) 11.6 - 15.2 gm/dl [facility] HCT 30.3(L) 34.9 - 44.4 % [facility] MCV 91 81 - 98 fl [facility] MCH 31.8 26.7 - 33.3 pg [facility] MCHC 34.8 32.1 - 35.9 gm/dl [facility] PLT 214 141 - 320 K/cmm [facility] RDW-CV 13.0 11.7 - 14.6 % [facility] % Neutrophils 69.5 45.5 - 79.7 % [facility] % Lymphocytes 17.0 15.0 - 46.8 % [facility] % Monocytes 12.5(H) 1.8 - 12.0 % [facility] % Eosinophils 0.7 0.6 - 6.9 % [facility] % Basophils 0.3 0.2 - 1.4 % [facility] ABS Neutrophils 7.66 2.20 - 8.85 K/cmm [facility] ABS Lymphs 1.87 1.09 - 3.30 K/cmm [facility] ABS Monocytes 1.38(H) 0.1 - 0.8 K/cmm [facility] ABS Eosinophils 0.08 0.03 - 0.61 K/cmm [facility] ABS Basophils 0.03 0.01 - 0.11 K/cmm [facility] Type of Diff: Automated [facility] 01/16/2007 6:10 EDT 01/16/2007 7:06 EDT jK Child MD PACKAGES & DNA P ROBE ORDERABLES [facility] [address] [place] [address] * (ABNORMAL) BUN (01/16/2007 6:10 EDT) BUN 4(L) 10 - 26 mg/dl [facility] 01/16/2007 6:10 EDT 01/16/2007 7:06 EDT Kj Child MD CHEMISTRY & BLOO D GAS ORDERABLES Performing Organization Address [facility] Co de Phone Number [facility] [address] [place] [address] * (ABNORMAL) UA WITH MICROSCOPIC (01/16/2007 0:27 EDT) Pathologist [facility] Color, UA Yellow [facility] Clarity, UA Clear [facility] Glucose, UA Norm NORM [facility] Bilirubin, UA Neg NEG [facility] Ketones, UA Mod(A) NEG [facility] Specific [place], Urine >1.030(H) 1.005 - 1.02 [facility] Blood, UA Neg NEG [facility] pH, UA 5.5 5.0 - 9.0 [facility] Protein, UA Neg NEG [facility] Urobilinogen, UA Norm NORM mg/dL [facility] Nitrite, UA Neg NEG [facility] Leuk Esterase Neg NEG [facility] WBC, UA less than 1 0 - 5 /HPF [facility] Comment:LESS THAN 12CC SUBMI TTED RBC, UA less than 1 0 - 5 /HPF [facility] Squam Epithel, UA Few(A) NS /HPF [facility] Renal Epithel, UA None seen NS /HPF [facility] Bacteria, UA None seen NS /HPF [facility] Crystals, UA None seen /HPF [facility] Hyaline Casts, UA None seen /LPF [facility] UA Comment Microscopic results are unreliable on urines unrefrig >2hrs or refrig >8hrs. [facility] Mucus, UA Present [facility] Refractometer SG,Urine 1.017 1.005 - 1.02 [facility] 01/16/2007 0:27 EDT 01/16/2007 0:27 EDT Kj Child MD URINALYSIS ORDER HERO Performing Organization Address [facility] de Phone Number [facility] [address] [place] [address] * GLUCOSE, SERUM (01/15/2007 5:40 EDT) Glucose, Serum 91 70 - 100 mg/dl [facility] 01/15/2007 5:40 EDT 01/15/2007 6:02 EDT Kj Child MD CHEMISTRY & BLOO D GAS ORDERABLES Performing Organization Address [facility] Phone Number [facility] [address] [place] [address] * ELECTROLYTES (01/15/2007 5:40 EDT) Sodium 140 136 - 145 mEq/L [facility] Potassium 4.0 3.5 - 5.0 mEq/L [facility] Chloride 105 96 - 110 mEq/L [facility] CO2 28 24 - 32 mEq/L [facility] 01/15/2007 5:40 EDT 01/15/2007 6:02 EDT Kj Child MD CHEMISTRY & BLOO D GAS ORDERABLES Performing Organization Address [facility] de Phone Number [facility] [address] [place] [address] * CREATININE (01/15/2007 5:40 EDT) Creatinine 0.71 0.7 - 1.5 mg/dl [facility] GFR, Calculated >60 ml/min/1.7 3m2 [facility] 01/15/2007 5:40 EDT 01/15/2007 6:02 EDT Kj Child MD CHEMISTRY & BLOO D GAS ORDERABLES [facility] [address] [place] [address] * (ABNORMAL) HEMAGRAM AND DIFFERENTIAL (01/15/2007 5:40 EDT) WBC 9.37 4.0 - 12.4 K/cmm [facility] RBC 3.50(L) 3.86 - 5.04 M/cmm [facility] Hemoglobin 11.2(L) 11.6 - 15.2 gm/dl [facility] HCT 31.7(L) 34.9 - 44.4 % [facility] MCV 91 81 - 98 fl [facility] MCH 32.1 26.7 - 33.3 pg [facility] MCHC 35.4 32.1 - 35.9 gm/dl [facility] PLT 253 141 - 320 K/cmm [facility] RDW-CV 13.2 11.7 - 14.6 % [facility] % Neutrophils 78.7 45.5 - 79.7 % [facility] % Lymphocytes 14.5(L) 15.0 - 46.8 % [facility] % Monocytes 5.8 1.8 - 12.0 % [facility] % Eosinophils 0.5(L) 0.6 - 6.9 % [facility] % Basophils 0.5 0.2 - 1.4 % [facility] [...] of Diff: Automated [facility] 01/15/2007 5:40 EDT 01/15/2007 6:02 EDT Kj Child MD PACKAGES & DNA P ROBE ORDERABLES Performing Organization Address City/[facility]/ZIP Co de Phone Number [facility] [address] [place] [address] * (ABNORMAL) BUN (01/15/2007 5:40 EDT) BUN 8(L) 10 - 26 mg/dl [facility] 01/15/2007 5:40 EDT 01/15/2007 6:02 EDT Kj Child MD CHEMISTRY & BLOO D GAS ORDERABLES Performing Organization Address [facility] Co de Phone Number [facility] [address] [place] [address] * L SPINE 1 VIEW (01/14/2007 16:21 EDT) Anatomical Region Laterality Modality Other 01/14/2007 16:2 1 EDT Narrative 03/02/2009 13:45 EDT spondylolisthesis of lumbar, congenital - l5-s1 psf, decomp, pedscrews r/o check level L SPINE 1 VIEW ??January 14, 2007 4:21:58 PM Signs and Symptoms:: ??spondylolisthesis of lumbar, congenital - l5-s1 psf, decomp, pedscrews r/o check level Findings: A crosstable lateral view of the lumbar spine was obtained. There is a surgical marker pointing towards the superior aspect of the L5 vertebral body towards the L4-L5 disc space. Radiopaque material is present at the operative site posteriorly. Findings were called to the operating room. I have personally reviewed the images and the above interpretation and agree with the findings. Procedure Note Andrea Whatley Jr., MD / Albaro Watson MD - 03/02/2009 spondylolisthesis of lumbar, congenital - l5-s1 psf, decomp, pedscrews r/o check level L SPINE 1 VIEW January 14, 2007 4:21:58 PM Signs and Symptoms:: spondylolisthesis of lumbar, congenital - l5-s1 psf, decomp, pedscrews r/o check level Findings: A crosstable lateral view of the lumbar spine was obtained. There is a surgical marker pointing towards the superior aspect of the L5 vertebral body towards the L4-L5 disc space. Radiopaque material is present at the operative site posteriorly. Findings were called to the operating room. I have personally reviewed the images and the above interpretation and agree with the findings. Kj Child MD IMG DIAGNOSTIC I MAGING ORDERABLES documented in this encounter Visit Diagnoses Not on filedocumented in this encounter
--- OUTSIDE RECORDS SUMMARY | 2024-04-22 23:53 | XMS_ITS | Encounter Summary ---
Author Organization [facility] Address [address] [place] [address] Care Team Providers Care Forensic Ballistics Expert Name Role Phone Unavailable Primary Care Provider Unavailabl e Encounter Details Date Type Department Care Team (Late Contact Info) Description 04/10/2007 13:27 EDT Hospital Encounter [facility] - [facility] [address] [place] [address] Brian Lindsay MD Social History Tobacco Use Types Packs/Day [...] [facility] Neurology - [address] [address] Kj Gloria MD PhD [address] [place] [address] [address] [place] [phone] 04/30/2024 9:30 EDT Office Visit [facility] Interventional Pain [address] [place], [place] [phone] Catalino Garrett MD [address] [place] [address] 09/18/2024 11:00 EST Office Visit [facility] Bariatric Surgery - [place] [address] [place], [place] [address] Allen Thompson PA-C [address] [facility], [facility], [address] [place] [address] documented as of this encounter Procedures Procedure Name Priority Date/Time Associated Diagnosis Comments L SPINE 2-3 VIEWS 04/10/2007 13: 29 EDT documented in this encounter Results * L SPINE 2-3 VIEWS (04/10/2007 13:29 EDT) Anatomical Region Laterality Modality Other 04/10/2007 13:2 9 EDT Narrative 03/02/2009 13:28 EDT LBP, S/P L5-S1 POSTEROLATERAL FUSION, ANNETTE STIMULATOR 01/14/07. ASSESS FUSION MATURATION. L SPINE 2-3 VIEWS ??Apr 10, 2007 1:29:00 PM Signs and Symptoms: ??LBP, S/P L5-S1 POSTEROLATERAL FUSION, ANNETTE STIMULATOR 01/14/07. ASSESS FUSION MATURATION. Comparison: 02/24/2007 Findings: Geronimo and lateral views of the lumbar spine were obtained. There is a bone graft stimulator stimulator in place with its leads post dural laterally at the S1 level. There is an prior decompression and posterior spinal fusion at L5-S1 with bilateral rods and apparent pedicle screws. The hardware is intact. There is posterolateral bone graft material present bilaterally which appears slightly denser suggesting some interval maturation. Lumbar alignment is normal. Disc space narrowing at L5-S1 is unchanged. Procedure Note Becki Benavides MD - 03/02/2009 LBP, S/P L5-S1 POSTEROLATERAL FUSION, ANNETTE STIMULATOR 01/14/07. ASSESS FUSION MATURATION. L SPINE 2-3 VIEWS Apr 10, 2007 1:29:00 PM Signs and Symptoms: LBP, S/P L5-S1 POSTEROLATERAL FUSION, ANNETTE STIMULATOR 01/14/07. ASSESS FUSION MATURATION. Comparison: 02/24/2007 Findings: Geronimo and lateral views of the lumbar spine were obtained. There is a bone graft stimulator stimulator in place with its leads post dural laterally at the S1 level. There is an prior decompression and posterior spinal fusion at L5-S1 with bilateral rods and apparent pedicle screws. The hardware is intact. There is posterolateral bone graft material present bilaterally which appears slightly denser suggesting some interval maturation. Lumbar alignment is normal. Disc space narrowing at L5-S1 is unchanged. Kj Child MD IMG DIAGNOSTIC I MAGING ORDERABLES documented in this encounter Visit Diagnoses Not on filedocumented in this encounter Additional Health Concerns Infection Onset Date Last Indicated Resolved Time COVID-19 08/15/2021 08/15/2021 09/04/2021 22:1 5 EST documented as of this encounter
--- OUTSIDE RECORDS SUMMARY | 2024-04-22 23:53 | XMS_ITS | Encounter Summary ---
Author Organization Health system Address [address] [place] [address] Care Team Providers Care Fisher Crab Name Role Phone Unavailable Primary Care Provider Unavailabl e Encounter Details Date Type Department Care Team (Late st Contact Info) Description 05/29/[address] [facility] Laboratory Services - [facility] [place] [address] [place], [place] [phone] Dejuan Farias PA Social History Tobacco Use Types Packs/Day Years Used Date Smoking Tobacco: Never Assessed Sex and Gender Information Value Date Recorded Sex Assigned at Not on file Gender Identity Female 10/05/2021 12:31 EST Sexual Orientation Not on file documented as of this encounter Plan of Treatment Upcoming Encounters Date Type Department Care Team (Late st Contact Info) Description 04/27/2024 14:[address] [facility] Neurology - [address] [address] Kj Gloria MD PhD 1 [facility], Level 2 [place] [phone] 04/30/2024 9:30 EDT Office Visit [facility] Interventional Pain [address] [facility] [place] [address] Catalino Garrett MD 62 [facility] [address] [place] [address] 09/18/2024 11:[address] [facility] Bariatric Surgery - [place] [address] [place] [address] Allen Thompson PA-C [address] [place] [address] 5 [place] [address] documented as of this encounter Procedures Procedure Name Priority Date/Time Associated Diagnosis Comments CYTOPATHOLOGY Routine 05/29/2010 0:00 EDT documented in this encounter Results * CYTOPATHOLOGY (05/29/2010 0:00 EDT) Pathology Report: CYTOPATHOLOGY REPORT ? Reports generated via electronic interface contain original data; ? however they are lacking the format of the original report. ? Caution should be taken when reading/interpreti ng unformatted reports. ? Name: ? TIA HITCHCOCK ? Accession #: ? [id number] ? : ? 1975 (Age: 34) ??F ?Collect Date: ? 05/29/2010 ? Location: ? [facility] ? Receive Date: ? 05/30/2010 ? Provider: DEJUAN PRIMITIVO PA ? Copy to: ? Final Report ? SPECIMEN ADEQUACY ? Satisfactory for Evaluation ? - transformation zone component present ? GENERAL CATEGORIZATION ? Negative for Intraepithelial Lesion or Malignancy ? INTERPRETATION ? Shift in abram present suggestive of bacterial vaginosis. ? Last Menstural Period: 8/?/10 ? Treatment History: Colposcopy ? Other: Additional clinical information: h/o of abn paps per pt ? HPVDX - HPV testing requested regardless of diagnosis on current ThinPrep Pap ?? test. ? Specimen/Source: ??Pap Test, Cervix/Endocervix, ThinPrep Imaging System with ? manual evaluation ? Document reviewed and electronically signed by: ? Lynan Gianluca, CT(ASCP) ? Report ??Date: 06/05/2010 10:02 ? HPV with Pap Test ? Date Ordered: ? 06/05/2010 ? Status: ?? Signed Out ?Date Complete: ? 06/08/2010 ? By: ??System Interface ? Date Reported: ? 06/08/2010 ? Interpretation ? RESULT: Negative for HPV types 16, 18, 31, 33, 35, 39, 45, 51, 52, ? 56, 58, 59, and 68. ? Comments ? Document reviewed and electronically signed by: ? System Interface ? Report date: 06/08/2010 ? By the signature above, the attending physician certifies that he/she has ? personally conducted a gross and/or microscopic examination of the described ? specimens and rendered or confirmed the above diagnosis. ? End of Report ? [facility] 05/29/2010 05/30/2010 Dejuan AVILA PATHOLOGY ORDERABLES [facility] [address] [place] [address] documented in this encounter Visit Diagnoses Not on filedocumented in this encounter
--- OUTSIDE RECORDS SUMMARY | 2024-04-22 23:53 | XMS_ITS | Encounter Summary ---
Author Organization [facility] Address [address] [place] [address] Care Team Providers Care Automotive Finance Manager Name Role Phone Unavailable Primary Care Provider Unavailabl e Encounter Details Date Type Department Care Team (Late st Contact Info) Description 02/24/2007 12:20 EDT Hospital Encounter [facility] - Maple conversion [address] [place] [address] Kj Child MD 192 [facility] [place] [address] Discharge Disposition: Auto Discharge Social History Tobacco [...] Info) Description 04/27/2024 14:30 EDT Telemedicine [facility] Neurology - [address] [place], [place] [address] Kj Gloria MD PhD 1 [facility] Level 2 [place] [phone] 04/30/2024 9:30 EDT Office Visit [facility] Interventional Pain [address] [place] [address] Catalino Garrett MD [address] [place] [address] 09/18/2024 11:00 EST Office Visit [facility] Bariatric Surgery - [place] [address] [place] [address] Allen Thompson PA-C [address] [place] [address], [facility], Level 5 [place] [address] documented as of this encounter Procedures Procedure Name Priority Date/Time Associated Diagnosis Comments L SPINE 2-3 VIEWS 02/24/2007 13: 20 EDT documented in this encounter Results * L SPINE 2-3 VIEWS (02/24/2007 13:20 EDT) Anatomical Region Laterality Modality Other 02/24/2007 13:2 0 EDT Narrative 03/02/2009 14:07 EDT low back pain s/p l5-s1 posterolateral fusion l4-s1 decomp: zulma fusion stimulator 01/14/07 assess fusion maturation. L SPINE 2-3 VIEWS ?? 2006 1:21:10 PM Signs and Symptoms:: ??low back pain s/p l5-s1 posterolateral fusion l4-s1 decomp: ??fusion stimulator 01/14/07 assess fusion maturation. Findings: 2 views of lumbar spine demonstrates patient to be status post L5-S1 posterior lateral fusion in placement of fusion stimulator. There is no interval [...] Signs and Symptoms:: low back pain s/p l5-s1 posterolateral fusion l4-s1 decomp: fusion stimulator 01/14/07 assess fusion maturation. Findings: 2 views of lumbar spine demonstrates patient to be status post L5-S1 posterior lateral fusion in placement of fusion stimulator. There is no interval change since previous examination. The degree of fusion maturation appears to have advanced slightly but significantly from a radiographic point of view. Kj Child MD IMG DIAGNOSTIC I MAGING ORDERABLES documented in this encounter Visit Diagnoses Not on filedocumented in this encounter
--- OUTSIDE RECORDS SUMMARY | 2024-04-22 23:53 | XMS_ITS | Encounter Summary ---
Author Organization [facility] Address [address] [place] [address] Care Team Providers Care Enrollment Services Dean Name Role Phone Brian Estrella MD Primary Care Provider Unavail able Reason for Visit * Reason Comments Foot Pain bilateral foot pain, right more than left Encounter Details Date Type Department Care Team (Late st Contact Info) Description 06/18/2011 10:00 EDT Office Visit [facility] Foot & Ankle Program - [address] [place] [address] Catalino Keys MD [address] [place] [address] Foot pain, right (Primary Dx); Os trigonum Social History Tobacco Use Types Packs/Day Years [...] - - Weight 130.2 kg (287 lb) 06/18/2011943 EDT Height 172.7 cm (5' 8) 06/18/2011943 EDT Body Mass Index 43.64 06/18/2011943 EDT documented in this encounter Ordered Prescriptions Prescription Sig Dispensed Refills Start Date End Da te gabapentin (NEURONTIN) 300 mg capsuleIndications:Foot pain, right Take 1 Cap by mouth 3 times daily for 30 days. 90 Cap 3 06/18/2011 08/16/2011 documented in this encounter Progress Notes * Catalino Keys MD - 06/18/2011 1111 EDT Diagnosis: Encounter Diagnoses Name Primary? Foot pain, right Yes ??? Os trigonum Hannah Eileen Spain is being seen today for Foot [...] a lot of swelling that tends to acc entuate this. In addition she has a sense that her fifth metatarsal feels broken. The foot aches all of the time, and by the end of the day, radiates proximally. She has had no specific injuries toeither foot. She does note that she has had 2 surgeries on her back in 1999 and 2006. The most recent was by Dr Child, which was an L5-S1 fusion. She most recently was seen by Bro Song in the spine clinic and had an EMG that apparently showed a tarsal tunnel. Therefore, we have been asked to seeher in consultation regarding the etiology and treatment options for her foot pain. She apparently has also been seen by a golf club facer up in [facility] by the name of Bc. He [...] for climbing steps and has pain on allsurfaces. She does not pursue any strenuous athletic [...] is completely within normal limits. DTR's are 2+ at both knees and ankles with intact pulses [...] has tenderness about the FHL at the fibroosseoustunnel. She has tenderness in the tarsal tunnel [...] her symptoms certainly do not go along with it since her paresthesias are not in the [...] with to see if, from a diagnostic standpoint,this settles down some of her symptoms. We will see her in 6 weeks' time for reevaluation. In the meantime, she will continue with her gabapentin. 1. Foot pain, right ANKLE 3 OR MORE VIEWS, FOOT 3 OR MORE VIEWS, AIRCAST SHORT WALKING BOOT (AIRCAST BOOT), gabapentin (NEURONTIN) 300 mg capsule 2. Os trigonum Other Orders Placed This Visit Procedures ??? AIRCAST SHORT WALKING BOOT ??? ANKLE 3 OR MORE VIEWS ??? FOOT 3 OR MORE VIEWS Imaging for next visit:none Follow up: Return in about 6 weeks (around 07/30/2011). Cc: Referring Provider - Dr. Song PCP - BRIAN ESTRELLA MD documented in this encounter Procedure Notes * Help Desk Manager, Scan - 07/09/2011 1008 ESTAssociated Order(s): ORDERS - SCANNED documented in this encounter Plan of Treatment Upcoming Encounters Date Type Department Care Team (Late st Contact Info) Description 04/27/2024 14:30 EDT Telemedicine [facility] Neurology - [address] [phone] Kj Gloria MD PhD 1 [facility] Level 2 [place] [phone] 04/30/2024 9:30 EDT Office Visit [facility] Interventional Pain 62 [facility] [place], [place] [phone] Catalino Garrett MD 62 [facility] [address] [place] [address] 09/18/2024 11:00 EST Office Visit [facility] Bariatric Surgery - [place] [address] [place], [place] [address] Allen Thompson PA-C 111 [facility], Level [address] [place] [address] documented as of this encounter Procedures Procedure Name Priority Date/Time Associated Diagnosis Comments ORDERS - SCANNED 07/09/2011 10:0 8 EST FOOT 3 OR MORE VIEWS Routine 06/18/2011 11:05 EDT Foot pain, right ANKLE 3 OR MORE VIEWS Routine 06/18/2011 11:05 EDT Foot pain, right documented in this encounter Results * ORDERS - SCANNED (07/09/2011 10:08 EST) 07/09/2011 10:0 8 EST Narrative Transcriptions Help Desk Manager, Scan - 07/09/2011 10:08 EST Scan Help Desk Manager ADMISSION ORDERABLES * FOOT 3 OR MORE VIEWS (06/18/2011 11:05 EDT) Anatomical Region Laterality Modality Other 06/18/2011 11:0 5 EDT 06/18/2011 14:41 EDT Narrative 06/18/2011 14:41 EDT ANKLE 3 OR MORE VIEWS ??Jun 18, 2011 11:05:00 AM Signs and Symptoms/Comments: ??729.5-PAIN IN [id number]-NUS-7-CM assess for DJD Technique: AP, mortise, and lateral weight-bearing views of the right ankle are obtained along with AP, oblique, and lateral weight-bearing views of the right foot. Findings: Bone mineralization is normal for age. Joint spaces are aligned and intact without evidence of osteoarthrosis. Os trigonum and is noted. No fracture or evidence of healing fracture is identified. I have personally reviewed the images and the above interpretation and agree with the findings. Procedure Note [facility] Santos MD - 06/18/2011 ANKLE 3 OR MORE VIEWS Jun 18, 2011 11:05:00 AM Signs and Symptoms/Comments: 729.5-PAIN IN WQOZ-HGZ-5-CM assess for DJD Technique: AP, mortise, and lateral weight-bearing views of the right ankle are obtained along with AP, oblique, and lateral weight-bearing views of the right foot. Findings: Bone mineralization is normal for age. Joint spaces are aligned and intact without evidence of osteoarthrosis. Os trigonum and is noted. No fracture or evidence of healing fracture is identified. I have personally reviewed the images and the above interpretation and agree with the findings. Catalino Keys MD [facility] [facility] [place] ORDERABLES * ANKLE 3 OR MORE VIEWS (06/18/2011 11:05 EDT) Anatomical Region Laterality Modality Other 06/18/2011 11:0 5 EDT 06/18/2011 14:41 EDT Narrative 06/18/2011 14:41 EDT ANKLE 3 OR MORE VIEWS ??Jun 18, 2011 11:05:00 AM Signs and Symptoms/Comments: ??729.5-PAIN IN YQGU-VNG-7-CM assess for DJD Technique: AP, mortise, and lateral weight-bearing views of the right ankle are obtained along with AP, oblique, and lateral weight-bearing views of the right foot. Findings: Bone mineralization is normal for age. Joint spaces are aligned and intact without evidence of osteoarthrosis. Os trigonum and is noted. No fracture or evidence of healing fracture is identified. I have personally reviewed the images and the above interpretation and agree with the findings. Procedure Note [facility] MD - 06/18/2011 ANKLE 3 OR MORE VIEWS Jun 18, 2011 11:05:00 AM Signs and Symptoms/Comments: 729.5-PAIN IN PINQ-GNH-3-CM assess for DJD Technique: AP, mortise, and lateral weight-bearing views of the right ankle are obtained along with AP, oblique, and lateral weight-bearing views of the right foot. Findings: Bone mineralization is normal for age. Joint spaces are aligned and intact without evidence of osteoarthrosis. Os trigonum and is noted. No fracture or evidence of healing fracture is identified. I have personally reviewed the images and the above interpretation and agree with the findings. 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 Reorder 06/18/2011 documented as of this encounter Orders General Supply Count Last Ordered Date First Or dered Date AIRCAST SHORT WALKING BOOT (AIRCAST BOOT) 1 06/18/2011 documented in this encounter Care Teams Enrollment Services Dean Relationship Specialty Start Date End Date Brian Estrella MD PCP - General 04/11/11 10/23/11 documented as of this encounter
--- OUTSIDE RECORDS SUMMARY | 2024-04-22 23:53 | XMS_ITS | Encounter Summary ---
Author Organization [facility] Address [address] [place] [address] Care Team Providers [facility] Office Supervisor Name Role Phone Unavailable Primary Care Provider Unavailabl e Encounter Details Date Type Department Care Team (Late st Contact Info) Description 12/30/2009 Abstract Used for ABSTRACTING Data [phone] Unknown, Doctor Social History Tobacco Use Types Packs/Day Years Used Date Smoking Tobacco: Never Assessed Sex and Gender Information Value Date Recorded Sex Assigned at Not on file Gender Identity Female 10/05/2021 12:31 EST Sexual Orientation Not on file documented as of this encounter Plan of Treatment Upcoming Encounters Date Type Department Care Team (Late st Contact Info) Description 04/27/2024 14:30 EDT Telemedicine [facility] Neurology - [address] [phone] Kj Gloria MD PhD [address] [place] [address] Level [address] [place] [phone] 04/30/2024 9:30 EDT Office Visit [facility] Interventional Pain 62 [facility] [place], [place] [phone] Catalino Garrett MD 62 [facility] [address] [place] [address] 09/18/2024 11:00 EST Office Visit [facility] Bariatric Surgery - [place] [address] [place], [place] [address] Allen Thompson PA-C 111 [facility], Level [address] [place] [phone] documented as of this encounter Visit Diagnoses Not on filedocumented in this encounter
--- OUTSIDE RECORDS SUMMARY | 2024-04-22 23:53 | XMS_ITS | Encounter Summary ---
Author Organization [facility] Address [address] [place] [address] Care Team Providers Care Assistant Account Executive Name Role Phone Unavailable Primary Care Provider Unavailabl e Encounter Details Date Type Department Care Team (Late st Contact Info) Description 09/29/2007 Results Only [facility] - Map conversion [address] [place] [address] Dejuan Farias PA Social History Tobacco Use [...] EDT Telemedicine [facility] Neurology - [address] [address] Kj Gloria MD PhD 1 [facility], Level 2 [place] [phone] 04/30/2024 9:30 EDT Office Visit [facility] Interventional Pain 62 [facility] [place], [place] [phone] Catalino Garrett MD 62 [facility] [address] [place] [phone] 09/18/2024 11:00 EST Office Visit [facility] Bariatric Surgery - [place] [address] [place] [address] Allen Thompson PA-C 111 [facility] 5 [place] [address] documented as of this encounter Procedures Procedure Name Priority Date/Time Associated Diagnosis Comments CYTOPATHOLOGY Routine 09/29/2007 0:00 EST documented in this encounter Results * CYTOPATHOLOGY (09/29/2007 0:00 EST) Pathology Report: CYTOPATHOLOGY REPORT Reports generated via electronic interface contain original data; however they are lacking the format of the original report. Caution should be taken when reading/interpreti ng unformatted reports. Name: ? TIA HITCHCOCK ? Accession #: ? [id number] : ? 1975 (Age: 32) ??F ?Collect Date: ? 09/29/2007 Location: ? [facility] ? Receive Date: ? 09/30/2007 Provider: ?DEJUAN AVILA Copy to: ? Specimen/Source: ?ThinPrep Pap Test, Endocervix, processed on [employer] ThinPrep Imaging System, with manual evaluation Last [...] Report Date: ??10/06/2007 08:44 End of Report [facility]ON[facility]ANG 09/29/2007 09/30/2007 Dejuan AVILA PATHOLOGY ORDERABLES [facility] [address] [place] [address] documented in this encounter Visit Diagnoses Not on filedocumented in this encounter
--- OUTSIDE RECORDS SUMMARY | 2024-04-22 23:53 | XMS_ITS | Encounter Summary ---
Author Organization [facility] Address [address] [place] [address] Care Team Providers Care Milk Wagon Driver Name Role Phone Brian Lindsay MD Primary Care Provider Unavail able Reason for Referral * Consult (Routine) - Closed Specialty Diagnoses / Procedures Referred By Wili mireles Referred To Contact Orthopedic Surgery Diagnoses Tarsal tunnel syndrome Kj Song PA-C [address] [place] [phone] [place] [address] [place] [address] Referral ID Status Reason Start Date Expiration Date V isits Requested Visits Authorized [id number] Closed Specialty Services Required 06/15/2011 1 1 Question Answer Reason for Request: tarsal tunnel syndrome Reason for Visit * Reason Comments Follow-up EMG follow up Encounter Details Date Type Department Care Team (Late st Contact Info) Description 06/15/2011 11:30 EDT Office Visit [facility] Spine Program - [address] [place] [address] Kj Song PA-C [address] [place] [phone] Tarsal tunnel syndrome (Primary Dx); Low back pain Social History Tobacco Use Types Packs/Day [...] of this encounter Progress Notes * Kj Song PA - 06/15/2011 1134 EDT Patient presents with continued chronic low back pain, bilateral lower extremity paresthesias status post EMG nerve conduction studies performed by Dr [...] me p.r.n. If her back pain persists, shewanted to pursue other options we could consider injection therapy such as medial branch blocks andradiofrequency ablation. documented in this encounter Plan of Treatment Upcoming Encounters Date Type Department Care Team (Late st Contact Info) Description 04/27/2024 14:30 EDT Telemedicine [facility] Neurology - [address] [address] Kj Gloria MD PhD 1 [facility] Level 2 [place] [phone] 04/30/2024 9:30 EDT Office Visit [facility] - Interventional Pain 62 [facility] [place] [address] Catalino Garrett MD 62 [facility] [address] [place] [address] 09/18/2024 11:00 EST Office Visit [facility] Bariatric Surgery - [place] [address] [place], [place] [address] Allen Thompson PA-C [address] [place] [address], Level [address] [place] [phone] Scheduled Referrals Name Type Priority Associated Diagnoses Order Schedule AMB CONSULT ORTHOPEDICS Outpatient Referral Routine Tarsal tunnel syndrome Ordered: 06/15/2011 documented as of this encounter Visit Diagnoses Diagnosis Tarsal tunnel syndrome- Primary Low back pain Lumbago documented in this encounter Care Teams Milk Wagon Driver Relationship Specialty Start Date End Date Brian Lindsay MD PCP - General 04/11/11 10/23/11 documented as of this encounter
--- OUTSIDE RECORDS SUMMARY | 2024-04-22 23:53 | XMS_ITS | Encounter Summary ---
Author Organization [facility] Address [address] [place] [address] Care Team Providers Care Reel Man Name Role Phone Unavailable Primary Care Provider Unavailabl e Encounter Details Date Type Department Care Team (Late st Contact Info) Description 11/18/2006 Before PRISM Converted Visit (Maple) [facility] - Maple conversion [address] [place], [place] [phone] Kj Child MD [address] [place] [address] [place] [address] Social History Tobacco Use Types Packs/Day Years Used Date Smoking Tobacco: Never Assessed Sex and Gender Information Value Date Recorded Sex Assigned at Not on file Gender Identity Female 10/05/2021 12:31 EST Sexual Orientation Not on file documented as of this encounter Progress Notes * Kj Child MD - 07/05/2009 1007 EST Spine [place] [facility] (SpINE) Orthopa[facility]ics and [facility] [address] [facility] [address] [place] [address] TELEPHONE CONVERSATION - 11/18/2006 SUBJECTIVE I spoke [...] therapy, Lyricaalternative therapies or consideration of surgery withthe nature of surgery being an L5-S1 decompression [...] degenerative. She states that she has tried multiple options already and if 50% change of [...] Child MD A - d Job ID: [id number] Document ID: [id number] cc: MARGARITA Chaudhari MD - Charmaine Child MD A - cmd Job ID: [id number] Document ID: [id number] cc: MARGARITA Chaudhari MD documented in this encounter Plan of Treatment Upcoming Encounters Date Type Department Care Team (Late st Contact Info) Description 04/27/2024 14:30 EDT Telemedicine [facility] Neurology - [place] [address] [place] [address] Kj Gloria MD PhD 1 [facility] Level [address] [place] [phone] 04/30/2024 9:30 EDT Office Visit [facility] Interventional Pain [address] [place] [address] Catalino Garrett MD 62 [facility] [address] [place] [address] 09/18/2024 11:00 EST Office Visit [facility] Bariatric Surgery - [place] [address] [place], [place] [address] Allen Thompson PA-C [address] [place] [address], [address] [place] [address] documented as of this encounter Visit Diagnoses Not on filedocumented in this encounter
--- OUTSIDE RECORDS SUMMARY | 2024-04-22 23:53 | XMS_ITS | Encounter Summary ---
Author Organization [facility] Address [address] [place] [address] Care Team Providers Care Pump House Technician Name Role Phone Unavailable Primary Care Provider Unavailabl e Encounter Details Date Type Department Care Team (Late st Contact Info) Description 12/29/2009 Abstract Used for ABSTRACTING Data [phone] Unknown, Doctor Lumbar radiculopathy Social History Tobacco Use Types [...] 04/27/2024 14:30 EDT Telemedicine [facility] Neurology [address] [id number] Kj Gloria MD PhD 1 [facility], Level [address] [place] [phone] 04/30/2024 9:30 EDT Office Visit [facility] Interventional Pain 62 [facility] [place], [place] [phone] Catalino Garrett MD 62 [facility] [address] [place] [address] 09/18/2024 11:00 EST Office Visit [facility] Bariatric Surgery - [place] [address] [place], [place] [address] Allen Thompson PA-C 111 [facility], [facility], Level [address] [place] [phone] documented as of this encounter Visit Diagnoses Diagnosis Lumbar radiculopathy Thoracic or lumbosacral neuritis or radiculitis, unspecified documented in this encounter
--- OUTSIDE RECORDS SUMMARY | 2024-04-22 23:53 | XMS_ITS | Encounter Summary ---
Author Organization [facility] Address [address] [place] [address] Care Team Providers Care Cryptologic Technician Operator/Analyst Name Role Phone Brian Lindsay MD Primary Care Provider Unavail able Reason for Visit * Reason Onset Date Comments Pre-op Exam 08/21/2011 Encounter Details Date Type Department Care Team (Late st Contact Info) Description 08/21/2011 Pre-Procedure Orders Encounter [facility] Foot & Ankle Program - [facility] [address] [place] [address] Kristina Aaron LPN [address] [place] [address] Social History Tobacco Use Types Packs/Day Years [...] [facility] Neurology - [address] [address] Kj Gloria MD PhD 1 [facility], Level 2 [place] [phone] 04/30/2024 9:30 EDT Office Visit [facility] Interventional Pain 62 [facility] [place] [address] Catalino Garrett MD [address] [place] [address] [address] [place] [address] 09/18/2024 11:00 EST Office Visit [facility] Bariatric Surgery - [place] [address] [place] [address] Allen Thompson PALizettC [address] [place] [address] 5 [place] [address] documented as of this encounter Visit Diagnoses Not on filedocumented in this encounter Care Teams Cryptologic Technician Operator/Analyst Relationship Specialty Start Date End Date Brian Lindsay MD PCP - General 04/11/11 10/23/11 documented as of this encounter
--- OUTSIDE RECORDS SUMMARY | 2024-04-22 23:53 | XMS_ITS | Encounter Summary ---
Author Organization [facility] Address [address] [place] [address] Care Team Providers Care Chief Business Officer Name Role Phone Unavailable Primary Care Provider Unavailabl e Encounter Details Date Type Department Care Team (Late st Contact Info) Description 10/25/2006 Before PRISM Converted Visit (Maple) [facility] - Maple conversion [address] [place], [place] [address] Kj Child MD [address] [place] [address] [place] [address] Social History Tobacco Use Types Packs/Day Years Used Date Smoking Tobacco: Never Assessed Sex and Gender Information Value Date Recorded Sex Assigned at Not on file Gender Identity Female 10/05/2021 12:31 EST Sexual Orientation Not on file documented as of this encounter Consult Notes * Kj Child MD - 07/05/2009 1059 EST Spine [place] [facility] (SpINE) Orthopaedics and Rehabilitation 158 [facility] [address] [place] [address] CONSULTATION - P#1: 50% back, 50% right [...] therapy with modalities, pool therapy, land based program,work hardening program. She has been offered a Functional [facility] program at [facility] as well as a Level 4 program here which she has declined. Each time she has undergone injections including in jections of the pars defect, midline epidurals, transforaminal injections and trigger point injections with no longlasting relief. She has occasionally used a [...] leg pain. She notes if she moves justright she will get the leg pain which [...] mg. once or twice a week. Surgeries: S/Ptubal ligation 1980, S/P cholecystectomy, 1980, S/P knee arthroscopy. Social history: Patient is div orced, currently has a live-in boyfriend who has been her partner for the last three years. She smokes one to three packs a day but is currently on a smoking cessation program. 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 Her boss does allow her to frequently change positions or limit her lifting on a day to day basis as necessary depending on her symptoms. O: 5 ft. 8, 247 pounds. BMI 37. Cooperative woman. She has 1/5 Homa signs. She ambulates with anantalgic gait on the right. She is able to heel walk and toe walk. Her sensation is intact to lighttouch and proprioception. She has some antalgic breakaway strength of her right quadriceps but 5/5 all muscle groups, negative straight leg raising. X-rays: Flex-ex lateral lumbar spine films demonstrate an L5 isthmic spondylolisthesis with 5 mm. of displacement that is mobile. Disc space heights mildly diminished at L5-S1, well preserved at levels above. EMG suggestive of L5 root irritation but no kay electrophysiologic abnormality. She has hadprevious MRIs, appears to have been in 2001 at [facility], none more recently. A; Woman with [...] surgery and decrease her likelihood of a goodoutcome. Those include a previous history of narcotic dependence, some of her psychosocial issues and her smoking. We discussed that if she were to have surgery we certainly wouldndo it while she wassmoking. She would have to be completely off nicotine patches and cigarettes for at least 30 days. I discussed with her there is no right or wrong answer. If she wished to pursue consideration of surgery, she would need to have more recent imaging. She felt her quality of life was severely impairedenough, if surgery was a possibility even at only a 50% chance of improvement, she would like to pursue that. Based on that we will proceed with the following plan. P: 1. Lumbar MRI with Gadolinium to rule out L5-S1 foraminal stenosis. 2. Phone follow-up to discuss results of that study and options. Signed by Kj Child MD 11/04/2006 19:27 Wilfrid Taylor MD Kj Child MD - Kj Child MD P - cmg Job ID: [id number] Document ID: [id number] cc: MARGARITA Chaudhari MD documented in this encounter Plan of Treatment Upcoming Encounters Date Type Department Care Team (Late st Contact Info) Description 04/27/2024 14:30 EDT Telemedicine [facility] Neurology - [address] [phone] Kj Gloria MD PhD 1 [facility] Level 2 [place] [phone] 04/30/2024 9:[address] [facility] Interventional Pain [address] [place] [address] Catalino Garrett MD 62 [facility] [address] [place] [address] 09/18/2024 11:00 EST Office Visit [facility] Bariatric Surgery - [place] [address] [place], [place] [phone] Allen Thompson, PA-C 111 [facility], Level [address] [place] [phone] documented as of this encounter Visit Diagnoses Not on filedocumented in this encounter
--- OUTSIDE RECORDS SUMMARY | 2024-04-22 23:53 | XMS_ITS | Encounter Summary ---
Author Organization [facility] Address [address] [place] [address] Care Team Providers Care Administrative Executive Name Role Phone Brian Lindsay MD Primary Care Provider Unavail able Reason for Visit * Reason Comments Foot Pain Encounter Details Date Type Department Care Team (Late st Contact Info) Description 06/15/2011 10:00 EDT Office Visit [facility] Spine Program - [address] [place] [address] Raysa Levine MD [address] [place] [address] [place] [address] Lumbar radiculopathy; Tarsal tunnel syndrome of [...] as of this encounter Progress Notes * Raysa Levine MD - 06/19/2011 1400 EDT This office note has been dictated. documented in this encounter Procedure Notes * Raysa Levine MD - 06/20/2011 5227 EDT Spine [place] [facility] (SpINE) Orthopaedics and Rehabilitation [address] [place] [address] ELECTRODIAGNOSTIC MEDICINE CONSULTATION SERVICE DATE: 06/15/2011 PERFORMING PHYSICIAN: Raysa Levine MD REFERRING PHYSICIAN: Brian Lindsay MD REFERRING PROVIDER: MARGARITA Cee SUBJECTIVE: Hannah Spain is a 36-year-old who was referred to me by Tk Song for electrodiagnosticstudies. Reviewing his comprehensive evaluation, she has had a history of chronic low back pain. More remotely, she has undergone a L5-S1 diskectomy, decompression 1999 followed by L5-S1 decompression fusion 01/06, Dr Child, for isthmic spondylolisthesis. Her medical history is also significant forobesity. About 6 months ago, she developed pain, burning in both of her feet. She denies it is madeworse by standing or any increasing activity. She has numbness and tingling in both feet, more so on the right. Her work is made difficult. 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 Her pain today is up to a 10, is present all the time. PAST MEDICAL HISTORY: Bipolar disorder, PTSD, plantar fasciitis, drug abuse, migraines. She does not smoke. She has no history of diabetes, thyroid [...] was abnormal with not elicitable F-wave. Medial and lateral plantar nerves could not be elicited. There [...] is concordant with a mild tarsal tunnel synd morelia.Clinically, she also has evidence of plantar fascitis. RECOMMENDATIONS: 1. Continue gabapentin 300 t.i.d. 2. Consultation by a footwear sales associate regarding possibility of a mild right tarsal tunnel syndrome. All findings were reviewed with the patient. All questions were answered. Electronically Signed by Raysa Levine MD 07/03/2011 22:00 Raysa Levine MD - Raysa Levine MD P - CD Job ID: SM Doc ID: [id number] Ext Doc ID: [id number] cc: MARGARITA Koehler MD documented in this encounter Plan of Treatment Upcoming Encounters Date Type Department Care Team (Late st Contact Info) Description 04/27/2024 14:30 EDT Telemedicine [facility] Neurology - S [address] [address] Kj Gloria MD PhD 1 [facility], Level 2 [place] [address] 04/30/2024 9:30 EDT Office Visit [facility] Interventional Pain [address] [place], [place] [phone] Catalino Garrett MD [address] [facility] [address] [place] [address] 09/18/2024 11:00 EST Office Visit [facility] Bariatric Surgery [facility] [address] [place] [address] Allen Thompson PA-C 111 [facility], Level [address] [place] [phone] documented as of this encounter Visit Diagnoses Diagnosis Lumbar radiculopathy Thoracic or lumbosacral neuritis or radiculitis, unspecified Tarsal tunnel syndrome of right side Tarsal tunnel syndrome documented in this encounter Care Teams Administrative Executive Relationship Specialty Start Date End Date Brian Lindsay MD PCP - General 04/11/11 10/23/11 documented as of this encounter
--- OUTSIDE RECORDS SUMMARY | 2024-04-22 23:53 | XMS_ITS | Encounter Summary ---
Author Organization [facility] Address [address] [place] [address] Care Team Providers Care Supervisor Grinding Name Role Phone Unavailable Primary Care Provider Unavailabl e Encounter Details Date Type Department Care Team (Latest Contact Info) Description 10/03/2006 9:47 EST - 10/03/2006 11:59 EST Hospital Encounter [facility]- [address] [address] Khris Barraza MD [facility] [address] [address] Discharge Disposition: Auto Discharge Social History Tobacco [...] Telemedicine [facility] Neurology - S [address] [phone] Kj Gloria MD PhD 1 [facility], Level 2 [place] [phone] 04/30/2024 9:30 EDT Office Visit [facility] Interventional Pain [address] [place], [place] [phone] Catalino Garrett MD 62 [facility] [address] [place] [address] 09/18/2024 11:00 EST Office Visit [facility] Bariatric Surgery - [place] [address] [place] [address] Allen Thompson PA-C [address] [place] [address], Level [address] [place] [address] documented as of this encounter Visit Diagnoses Not on filedocumented in this encounter
--- OUTSIDE RECORDS SUMMARY | 2024-04-22 23:53 | XMS_ITS | Encounter Summary ---
Author Organization [facility] Address [address] [place] [address] Care Team Providers Care Marketing Analytics Manager Name Role Phone Unavailable Primary Care Provider Unavailabl e Encounter Details Date Type Department Care Team (Late st Contact Info) Description 04/04/2011 Results Only [facility]- [facility] [phone] Haritha Hinkle MD [address] [place] [address] Social History Tobacco Use Types Packs/Day Years [...] Telemedicine [facility] Neurology - [facility] [place] 1 [place], [place] [address] Kj Gloria MD PhD 1 [facility], Level 2 [place] [phone] 04/30/2024 9:30 EDT Office Visit [facility] Interventional Pain [address] [place], [place] [phone] Catalino Garrett MD 62 [facility] [address] [place] [phone] 09/18/2024 11:00 EST Office Visit [facility] Bariatric Surgery - [place] [address] [place] [address] Allen Thompson PA-C 111 [facility] 5 [place] [address] documented as of this encounter Procedures Procedure Name Priority Date/Time Associated Diagnosis Comments PAP TEST- RESULT ONLY Routine 04/04/2011 0:00 EDT documented in this encounter Results * PAP TEST- RESULT ONLY (04/04/2011 0:00 EDT) Pathology Report: CYTOPATHOLOGY REPORT ? Reports generated via electronic interface contain original data; ? however they are lacking the format of the original report. ? Caution should be taken when reading/interpreti ng unformatted reports. ? Name: ? TIA HITCHCOCK ? Accession #: ? [id number] ? : ? 1975 (Age: 35) ??F ?Collect Date: ? 04/04/2011 ? Location: ? [facility] ? Receive Date: ? 04/06/2011 ? Provider: ?HARITHA S APRIL MD ? Copy to: ? Specimen/Source: ?Pap Test, Cervix/Endocervix, ThinPrep Imaging System ? with manual evaluation ? Last Menstrual Period: ? SPECIMEN ADEQUACY ? Satisfactory for Evaluation ? - transformation zone component present ? - scant squamous epithelial component secondary to excessive mucus ? GENERAL CATEGORIZATION ? Negative for Intraepithelial Lesion or Malignancy ? Document reviewed and electronically signed by: ? Shonda Menjivarlogg, CT(ASCP) ? Report Date: ??04/10/2011 14:43 ? End of Report ? [facility] 04/04/2011 04/06/2011 Haritha Hinkle MD PATHOLOGY ORDERABLES [facility] [address] [place] [address] documented in this encounter Visit Diagnoses Not on filedocumented in this encounter
--- OUTSIDE RECORDS SUMMARY | 2024-04-22 23:53 | XMS_ITS | Encounter Summary ---
Author Organization [facility] Address [address] [place] [address] Care Team Providers Care Shop Helper Name Role Phone Brian Lindsay MD Primary Care Provider Unavail able Encounter Details Date Type Department Care Team (Late st Contact Info) Description 09/26/2011 Results Only Imaging [facility]- [facility] [phone] Unknown, Provider, Social History Tobacco Use Types Packs/Day Years [...] EDT Telemedicine [facility] Neurology - [address] [place] 1 [place], [place] [address] Kj Gloria MD PhD 1 [facility] Level 2 [place] [phone] 04/30/2024 9:30 EDT Office Visit [facility] Interventional Pain 62 [facility] [place], [place] [phone] Catalino Garrett MD 62 [facility] [address] [place] [address] 09/18/2024 11:00 EST Office Visit [facility] Bariatric Surgery - [place] [address] [place] [address] Allen Thompson, PA-C [address] [place] [address], [facility] 5 [place] [phone] Pending Results Name Type Priority Associated Diagnoses Date /Time OUTSIDE CD - PLAIN FILM [facility] 09/26/2011 15:00 EST OUTSIDE CD - MRI [facility] 09/03 14:59 EST documented as of this encounter Visit Diagnoses Not on filedocumented in this encounter Care Teams Shop Helper Relationship Specialty Start Date End Date Brian Lindsay MD PCP - General 04/11/11 10/23/11 documented as of this encounter
--- OUTSIDE RECORDS SUMMARY | 2024-04-22 23:53 | XMS_ITS | Encounter Summary ---
Author Organization [facility] Address [address] [place] [address] Care Team Providers Care Drilling And Production Superintendent Name Role Phone Unavailable Primary Care Provider Unavailabl e Encounter Details Date Type Department Care Team (Latest Contact Info) Description 09/19/2006 11:53 EST - 09/19/2006 11:59 EST Hospital Encounter [facility] - Maple conversion [address] [place] [address] Harry Abreu MD Discharge Disposition: Auto Discharge Social History Tobacco [...] Telemedicine [facility] Neurology - S [address] [address] Kj Gloria MD PhD [address] [place] [address] Level 2 [place] [phone] 04/30/2024 9:30 EDT Office Visit [facility] Interventional Pain 62 [facility] [place], [place] [phone] Catalino Garrett MD 62 [facility] [address] [place] [address] 09/18/2024 11:00 EST Office Visit [facility] Bariatric Surgery - [place] [address] [place] [address] Allen Thompson PA-C [address] [place] [address], [facility], Level 5 [place] [address] documented as of this encounter Procedures Procedure Name Priority Date/Time Associated Diagnosis Comments PELVIS 1 OR 2 VIEWS 09/19/2006 1 3:42 EST L SPINE 2-3 VIEWS 09/19/2006 13: 42 EST documented in this encounter Results * L SPINE 2-3 VIEWS (09/19/2006 13:42 EST) Anatomical Region Laterality Modality Other 09/19/2006 13:4 2 EST Narrative 03/12/2009 2:44 EDT LBP. HIP PAIN. S/P L5-S1 DISCECTOMY , L5-S1 SPONDYLOLYSIS. R/O OA. R/O INSTABILITY. X-RAY OF THE LUMBAR SPINE, TWO VIEWS HISTORY: ??Low back pain, hip pain, status post L5-S1 diskectomy 11/1999, L5-S1 spondylolysis, rule out OA, rule out instability. FINDINGS: ??Lateral flexion and extension views of the lumbar spine were obtained. There is a bilateral pars defect at L5 with a grade I anterolisthesis of L5 over S1 that is visible in flexion. ??It measures 4 mm. In comparison with the x-rays of April 29, 2000, there is mild disk space narrowing at L5-S1. ??The other disk spaces are normal. ??There is no vertebral abnormality. IMPRESSION: ??Progression of the disk space narrowing at L5-S1 in comparison with the x-rays of April 2000. Bilateral pars defect at L5 with a grade I anterolisthesis of L5 over S1 visible in flexion but not in extension. [id number] D: ??09/21/2006 16:18 T: ??09/23/2006 13:12 Procedure Note Sweta Peterson MD - 03/12/2009 LBP. HIP PAIN. S/P L5-S1 DISCECTOMY , L5-S1 SPONDYLOLYSIS. R/O OA. R/O INSTABILITY. X-RAY OF THE LUMBAR SPINE, TWO VIEWS HISTORY: Low back pain, hip pain, status post L5-S1 diskectomy 11/1999, L5-S1 spondylolysis, rule out OA, rule out instability. FINDINGS: Lateral flexion and extension views of the lumbar spine were obtained. There is a bilateral pars defect at L5 with a grade I anterolisthesis of L5 over S1 that is visible in flexion. It measures 4 mm. In comparison with the x-rays of April 29, 2000, there is mild disk space narrowing at L5-S1. The other disk spaces are normal. There is no vertebral abnormality. IMPRESSION: Progression of the disk space narrowing at L5-S1 in comparison with the x-rays of April 2000. Bilateral pars defect at L5 with a grade I anterolisthesis of L5 over S1 visible in flexion but not in extension. [id number] Harry Abreu MD IMG DIAGNOSTIC I MAGING ORDERABLES * PELVIS 1 OR 2 VIEWS (09/19/2006 13:42 EST) Anatomical Region Laterality Modality Other 09/19/2006 13:4 2 EST Narrative 03/12/2009 2:44 EDT LBP. HIP PAIN. S/P L5-S1 DISCECTOMY , L5-S1 SPONDYLOLYSIS. R/O OA. R/O INSTABILITY. SINGLE VIEW PELVIS FINDINGS: ??Hips are symmetrical, no pathologic condition identified. The patient had surgery, but it is not visible on the AP view. D: ? 09/19/06 T: ? 09/22/06 /amn Procedure Note Albaro Watson MD - 03/12/2009 LBP. HIP PAIN. S/P L5-S1 DISCECTOMY , L5-S1 SPONDYLOLYSIS. R/O OA. R/O INSTABILITY. SINGLE VIEW PELVIS FINDINGS: Hips are symmetrical, no pathologic condition identified. The patient had surgery, but it is not visible on the AP view. / Harry Abreu MD IMG DIAGNOSTIC I MAGING ORDERABLES documented in this encounter Visit Diagnoses Not on filedocumented in this encounter
--- OUTSIDE RECORDS SUMMARY | 2024-04-22 23:53 | XMS_ITS | Encounter Summary ---
Author Organization [facility] Address [address] [place] [address] Care Team Providers Care Coffee Shop Manager Name Role Phone Brian Lindsay MD Primary Care Provider Unavail able Reason for Visit * Reason Comments Follow-up foot pain, right/ Os trigonum Encounter Details Date Type Department Care Team (Late st Contact Info) Description 08/02/2011 9:30 EST Office Visit [facility] Foot & Ankle Program - [address] [place] [address] Catalino Keys MD [address] [place] [address] Tarsal tunnel syndrome of right side; Os trigonum Social History Tobacco Use Types [...] Progress Notes * Catalino Keys MD - 08/02/2011 1418 EST [...] an unusual cause of the syndrome. To fur ther evaluate this, we'll get an MRI of [...] Description 04/27/2024 14:30 EDT Telemedicine [facility] Neurology - [address] [place] [address] [place], [place] [address] Kj Gloria MD PhD 1 [facility], Level [address] [place] [phone] 04/30/2024 9:30 EDT Office Visit [facility] Interventional Pain [address] [place], [place] [phone] Catalino Garrett MD 62 [facility] [address] [place] [phone] 09/18/2024 11:00 EST Office Visit [facility] Bariatric Surgery [facility] [address] [place] [address] Allen Thompson PA-C 111 [facility], [facility], Level [address] [place] [phone] documented as of this encounter Visit Diagnoses Diagnosis Tarsal tunnel syndrome of right side Tarsal tunnel 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
--- OUTSIDE RECORDS SUMMARY | 2024-04-22 23:53 | XMS_ITS | Encounter Summary ---
Author Organization [facility] Address [address] [place] [address] Care Team Providers Care Rehabilitation Physician Name Role Phone Unavailable Primary Care Provider Unavailabl e Encounter Details Date Type Department Care Team (Late st Contact Info) Description 04/10/2007 Before PRISM Converted Visit (Maple) [facility] - Maple conversion [address] [place] [address] Kj Child MD [address] [place] [address] [place] [address] Social History Tobacco Use Types Packs/Day Years Used Date Smoking Tobacco: Never Assessed Sex and Gender Information Value Date Recorded Sex Assigned at Not on file Gender Identity Female 10/05/2021 12:31 EST Sexual Orientation Not on file documented as of this encounter Progress Notes * Kj Child MD - 07/09/2009 0931 EST [facility] [place] [facility] (SpINE) Orthopaedics and Rehabilitation [address] [facility] [address] [place] [id number] PROGRESS/FOLLOWUP NOTE - 04/10/2007 PROBLEM 1: 50% [...] had significant improvement in her back and leg symptoms although she continues to have discomfort. She notes now she really has no back pain. Shewill get discomfort in her buttocks, posterolateral thighs and calves bilaterally. It is intermittent. Nothing in particular seems to exacerbate or relieve it. She notes she will go several days withno symptoms and then a couple of days with symptoms. Physical therapy with massage and exercise is helping significantly. She is taking only occasional Tylenol. She is taking no other medications. She does have Advil which she uses which have been [...] on increasing her work back to her normal two days a week level. PLAN 1. Physical [...] MD Kj Child MD -Kj Child MD -[facility] Job ID: [id number] Doc ID: [id number] cc: DO Brian Petersen MD documented in this encounter Plan of Treatment Upcoming Encounters Date Type Department Care Team (Late st Contact Info) Description 04/27/2024 14:30 EDT Telemedicine [facility] [place] [address] Kj Gloria MD PhD [address] [place] [address] 2 [place] [phone] 04/30/2024 9:30 EDT Office Visit [facility] Interventional Pain [address] [place], [place] [phone] Catalino Garrett MD [address] [facility] [address] [place] [address] 09/18/2024 11:00 EST Office Visit [facility] Bariatric Surgery - [place] [address] [place], [place] [address] Allen Thompson PA-C [address] [facility], [address] [place] [phone] documented as of this encounter Visit Diagnoses Not on filedocumented in this encounter
--- OUTSIDE RECORDS SUMMARY | 2024-04-22 23:53 | XMS_ITS | Encounter Summary ---
Author Organization [facility] Address [address] [place] [address] Care Team Providers Care Crown Assembly Machine Operator Name Role Phone Unavailable Primary Care Provider Unavailabl e Encounter Details Date Type Department Care Team (Late st Contact Info) Description 04/29/2000 15:37 EDT Hospital Encounter [facility] - Maple conversion [address] [place] [address] Kj Child MD [address] [facility] [place] [address] Discharge Disposition: Auto Discharge Social [...] [facility] - [address] [place] [address] [place], [place] [address] Kj Gloria MD PhD 1 [facility] Level [address] [place] [phone] 04/30/2024 9:30 EDT Office Visit [facility] Interventional Pain [address] [place] [address] Catalino Garrett MD [address] [place] [address] 09/18/2024 11:00 EST Office Visit [facility] Bariatric Surgery - [place] [address] [place] [address] Allen Thompson PA-C [address] [facility], [facility], Level [address] [place] [address] documented as of this encounter Procedures Procedure Name Priority Date/Time Associated Diagnosis Comments L SPINE 1 VIEW Routine 04/29/2000 9:59 EDT L SPINE 2-3 VIEWS Routine 04/29/2000 9:59 EDT documented in this encounter Results * L SPINE 1 VIEW (04/29/2000 9:59 EDT) Anatomical Region Laterality Modality Other 04/29/2000 9:59 EDT Narrative 07/12/2009 18:59 EST PAIN WITH MOVEMENT. ??S/P L5-S1 DISCECTOMY. R/O DEGENERATIVE INSTABILITY. AP AND LATERAL FLEXION EXTENSION LUMBAR SPINE 04/29/00 FINDINGS: AP and lateral flexion/extension views. The lateral examination demonstrates an L5 pars defect. There may be 1-2mm of anterior subluxation of L5, but the L5-S1 disc space appears relatively normal. The remaining disc spaces and all vertebral body heights are unremarkable. The SI joints are grossly intact. The bone density is normal. D 05/01/00 T 05/02/00 /marichuy Procedure Note Yao Hedrick MD - 07/12/2009 PAIN WITH MOVEMENT. S/P L5-S1 DISCECTOMY. R/O DEGENERATIVE INSTABILITY. AP AND LATERAL FLEXION EXTENSION LUMBAR SPINE 04/29/00 FINDINGS: AP and lateral flexion/extension views. The lateral examination demonstrates an L5 pars defect. There may be 1-2mm of anterior subluxation of L5, but the L5-S1 disc space appears relatively normal. The remaining disc spaces and all vertebral body heights are unremarkable. The SI joints are grossly intact. The bone density is normal. D 05/01/00 T 05/02/00 /marichuy Kj Child MD [place] I MAGING ORDERABLES * L SPINE 2-3 VIEWS (04/29/2000 9:59 EDT) Anatomical Region Laterality Modality Other 04/29/2000 9:59 EDT Narrative 07/12/2009 18:59 EST PAIN WITH MOVEMENT. ??S/P L5-S1 DISCECTOMY. R/O DEGENERATIVE INSTABILITY. Procedure Note Yao Hedrick MD - 07/12/2009 PAIN WITH MOVEMENT. S/P L5-S1 DISCECTOMY. R/O DEGENERATIVE INSTABILITY. Kj DEY DIAGNOSTIC I MAGING ORDERABLES documented in this encounter Visit Diagnoses Not on filedocumented in this encounter
== END 2024-04-22 23:43 | disposition home or self-care (01) ==
LOC: NCHCN 23:42
PROVIDERS: PCP Family Medicine; Visit Provider Nurse Practitioner Family
DX: N89.8 Other specified noninflammatory disorders of vagina (principal)
CPT/HCPCS: 87480; 87510; 87660

== ENCOUNTER 2024-09-07 03:09 | Outpatient (CLI) | payer MEDICARE, SELFPAY ==
--- NOTE | 2024-09-07 | DI.MAMMO_ITS ---
Exam(s) MAMMO SCREENING EXAM: MAMMO SCREENING CLINICAL HISTORY: Screening, Z12.31 TECHNIQUE: Bilateral full field digital CC and MLO mammographic images were obtained with 3D tomosyn thesis and utilizing computer aided detection (CAD). COMPARISON: Available for comparison. FINDINGS: Masses/Architectural Distortion: None seen. Microcalcifications: No suspicious pleomorphic-type are seen. Skin Thickening/Nipple Retraction: None. IMPRESSION: 1. No significant interval change with no specific features of malignancy noted. 2. Unless there is more urgent need, screening mammography is recommended, as per [place] [employer] guidelines. BI-RADS Category 1 - Negative Breast Density - Category B - Scattered areas of fibroglandular density Breast density category C or D implies that the patient has dense breast tissue. Dense breast tissue is very common and is not abnormal but dense breast tissue can make it harder to find cancer on a ma mmogram. Also, dense breast tissue may increase their breast cancer risk. This information about the result of the mammogram report was provided to the patient to raise their awareness. Use this report when you speak with the patient about their risks for breast cancer, which includes their family hist ory. At that time, you may recommend for more screening tests (Ultrasound or MRI) as they might be us eful based on their risk. A negative radiographic report should not delay biopsy if a dominant or clinically suspicious mass is present. Up to ten percent of cancers are not identified on mammography. A negative report may reinforce clinical impression. Adenosis and dense breasts may obscure an underlying neoplasm. False positive reports average 6 to 10%. Patient will receive a letter notifying them of these results.
== END 2024-09-07 03:29 ==
PROVIDERS: PCP Family Medicine; Visit Provider Nurse Practitioner Family
DX: Z12.31 Encounter for screening mammogram for malignant neoplasm of breast (principal); R92.323 Mammographic fibroglandular density, bilateral breasts
CPT/HCPCS: 77063; 77067

== ENCOUNTER 2024-09-17 09:04 | Outpatient (CLI) | payer MEDICARE, SELFPAY ==
[2024-09-17 09:06] LABS: Abs Immature Grans 0.01 10^3/uL (0.0-0.06); Absolute Basophil Count 0.06 10^3/uL (0.0-0.2); Absolute Lymphocyte Count 1.52 10^3/uL (1.2-3.4); Absolute Monocyte Count 0.42 10^3/uL (0.1-0.8); Absolute Neutrophil Count 2.46 10^3/uL (1.2-6.7); Basophils % 1.3 %; Eosinophils % 2.2 %; HCT 40.6 % (36.0-46.0); HGB 13.7 g/dL (11.2-15.7); Immature Grans % 0.2 %; Lymphocytes % 33.3 %; MCH 29.6 pg (27.0-33.0); MCHC 33.7 % (32.0-36.0); MCV 88 fL (80-95); MPV 9.2 fL (8.0-11.0); Monocytes % 9.2 %; Neutrophils % 53.8 %; Platelet Count 282 10^3/uL (130-400); RBC 4.63 10^6/uL (3.93-5.22); RDW 13.3 % (11.7-14.6); RDW-SD 42.5 fL; WBC 4.57 10^3/uL (4.4-10.8)
--- OUTSIDE RECORDS SUMMARY | 2024-09-17 09:06 | XMS_ITS | Encounter Summary ---
Author Organization [facility] Address [facility] [place] [address] Care Team Providers Care Crystal Calibrator Name Role Phone Juma Herrera MD Primary Care Provider [facility] Encounter Details Date Type Department Care Team (Latest Contact Info) Description 11/29/2016 - 11/29/2016 11:59 PM EDT Hospital Encounter Radiology Library at [facility] [place] [phone] French Graff MD Pain Discharge Disposition: Home Social History Tobacco [...] CT Pelvis (11/29/2016 12:00 AM EDT) Narrative [facility] - 11/30/2016 2:30 PM EDT This exam is for storage only and is auto-finalizing. French Graff MD IM FILM LIBRARY ORD ERABLES Performing Organization Address City/State/[facility] Co de Phone Number [place], [place] documented in this encounter Visit Diagnoses Diagnosis Pain Generalized pain documented in this encounter Care Teams Crystal Calibrator Relationship Specialty Start Date End Date Juma Herrera MD PCP - General 05/21/14 09/10/24 documented as of this encounter
--- OUTSIDE RECORDS SUMMARY | 2024-09-17 09:06 | XMS_ITS | Encounter Summary ---
Author Organization [facility] Address [facility] [place] [address] Care Team Providers Care Cell Tuber Machine Name Role Phone Juma Herrera MD Primary Care Provider [facility] Encounter Details Date Type Department Care Team (Latest Contact Info) Description 05/27/2014 10:39 AM EDT - 05/27/2014 11:59 PM EDT Hospital Encounter Mammography at [facility] [place] [address] CLINIC, Dariela Romero MD [address] [place] [address] Other (abnormal) findings on radiological examination of [...] the procedure without a resident. Cell phone: [phone] Narrative 05/29/2014 7:50 AM EDT VACUUM ASSISTED [...] Clinical indication: Right breast 15mm mass/architectural distortion [id number], 9cm from the nipple. 12-gauge Atec US [...] the procedure without a resident. Cell phone: [phone] Dariela Stiles MD IMG MAMMO ORDERABLES * [...] mLs documented in this encounter Care Teams Cell Tuber Machine Relationship Specialty Start Date End Date Juma Herrera MD PCP - General 05/21/14 09/10/24 documented as of this encounter
--- OUTSIDE RECORDS SUMMARY | 2024-09-17 09:06 | XMS_ITS | Encounter Summary ---
Author Organization [facility] Address [facility] [place] [address] Care Team Providers Care Parole Officer Name Role Phone Juma Herrera MD Primary Care Provider [facility] Encounter Details Date Type Department Care Team (Late st Contact Info) Description 05/20/2014 [place] [address] Antonella Boston MD [facility] [place] [address] Other (abnormal) findings on radiological examination of [...] and immediately adjacent cysts. Antonella Boston MD G MAMMO ORDERABLES * Mammo direct digital unilateral [...] breast documented in this encounter Care Teams Parole Officer Relationship Specialty Start Date End Date Juma Herrera MD PCP - General 05/21/14 09/10/24 documented as of this encounter
--- OUTSIDE RECORDS SUMMARY | 2024-09-17 09:06 | XMS_ITS | Encounter Summary ---
Author Organization [facility] Address [facility] [place] [address] Care Team Providers Care Extraction Supervisor Name Role Phone Juma Herrera MD Primary Care Provider [facility] Encounter Details Date Type Department Care Team (Late st Contact Info) Description 06/09/2014 [place] [phone] Wu Vaz MD [facility] [place] [address] Social History Tobacco Use Types Packs/Day Years [...] on filedocumented in this encounter Care Teams Extraction Supervisor Relationship Specialty Start Date End Date Juma Herrera MD PCP - General 05/21/14 09/10/24 documented as of this encounter
--- OUTSIDE RECORDS SUMMARY | 2024-09-17 09:06 | XMS_ITS | Encounter Summary ---
Author Organization [facility] Address [facility] [place] [address] Care Team Providers Care Entomology Professor Name Role Phone Juma Herrera MD Primary Care Provider [facility] Encounter Details Date Type Department Care Team (Latest Contact Info) Description 05/24/2014 8:27 AM EDT - 05/24/2014 11:59 PM EDT Hospital Encounter Mammography at [facility] [place] [address] CLINIC, Dariela Romero MD [address] [place] [address] Other (abnormal) findings on radiological [...] breast documented in this encounter Care Teams Entomology Professor Relationship Specialty Start Date End Date Juma Herrera MD PCP - General 05/21/14 09/10/24 documented as of this encounter
--- OUTSIDE RECORDS SUMMARY | 2024-09-17 09:06 | XMS_ITS | Clinical Summary ---
Author Organization [facility] Address [address] [place] [address] Care Team Providers Care Yard Foreman Name Role Phone Juma Herrera MD Unavailable Curtis Burns MD Primary Care Provider [phone] Allergies Active Allergy Reactions Criticality Noted Date Comments Adhesive Other (See Comments) 09/29/2012 Skin irritation, paper tape ok Hymenoptera Allergenic Extract Swelling 03/06/2012 Fever and vomiting Codeine Hives,Nausea And Vomiting 12/29/2009 Other - See Comments Nausea And Vomiting 2015 Root beer Pt says she can sometimes drink it Medications duloxetine (CYMBALTA) 30 mg capsule Take 3 Capsules by mouth daily. Take with 60mg cap to =90mg dose 1 Active methylphenidate (RITALIN SR; METADATE ER; METHYLIN ER) 20 mg SR tablet Take by mouth 2 times daily. Takes 20 mg every morning, 20 mg every afternoon, 10 mg every evening. Active pregabalin (LYRICA) 50 mg capsule Take 2 Caps by mouth 3 times daily. 180 Cap 3 2 Active prochlorperazine (COMPAZINE) 10 mg tabletIndication s:S/P laparoscopic sleeve gastrectomy,Lyndsay roesophageal reflux disease without esophagitis Take 1 Tab by mouth every 6 hours as needed for Nausea 60 Tab 0 5 Active methylphenidate (RITALIN;METHYLI N) 5 mg tablet Take 2 Tablets by mouth 2 times daily. Active MEDICAL MARIJUANA as needed. Active cortisone acetate (CORTISONE IM) Inject 1 Dose into the muscle every 3 months. Active MAGNESIUM ORAL Take 500 mg by mouth daily. Active calcium carbonate/vitami n D3 (VITAMIN D-3 ORAL) Take by mouth. Activ e busPIRone (BUSPAR) 30 mg tablet Take 1 Tablet by mouth 2 times daily. Active cholecalciferol, Vitamin D3, 25 mcg (1,000 unit) tablet Take 4 Tablets by mouth daily. Active multivitamins (THERAGRAN) Take 5 mL by mouth daily. Active nystatin (MYCOSTATIN) powder Apply to affected area twice daily. Clean and thoroughly dry area before application. 30 g 1 2 Active Additional Information Patient taking differently: Apply to affected area twice daily. Clean and thoroughly dry area before application. PRN, Reported on 04/27/2024 cloNIDine HCL (CATAPRES) 0.1 mg tablet Take 1 Tablet by mouth 2 times daily. Active omega-3 fatty acids/fish oil (FISH OIL-OMEGA-3 FATTY ACIDS) 300-1,000 mg capsule daily. 3 Active acetaminophen (TYLENOL EX STR RAPID RELEASE ORAL) Take by mouth 3 times daily. Active naproxen sodium (ALEVE ORAL) Take 1 Tablet by mouth 2 times daily. prn Active B-complex with vitamin C (VITAMIN B COMPLEX-C ORAL) Take by mouth daily. Active ALBUTEROL INHL Inhale as directed 2 times daily. Active UNABLE TO FIND daily. Med Name: Salon Pas/Lidocaine Patch Active omeprazole (PRILOSEC) 40 mg capsule Take 1 Capsule by mouth daily. 90 Capsule 3 4 Active SUMAtriptan Succinate 6 mg/0.5 mL cartridge Inject 6 mg into the skin as needed (migraine). Take as directed. 6 mL 11 4 Active erenumab-aooe (AIMOVIG AUTOINJECTOR) 140 mg/mL auto-injector Inject 1 mL into the skin every 28 days. 3 mL 4 Active Active Problems Patient Care Coordination No te Formatting of this note migh t be different from the original. PER MEDICAID WEB, ADRIANA TERMED 09/10/19 AND SWITCHED TO [facility] PLAN AID CATEGORY VN WHICH WE DO NOT LOAD. 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 Overview (06/18/2011): Right Lumbar radiculopathy 10/03/2006 Encounters Date Type Department Care Team Description 08/06/2024 Specialty Pharmacy [facility] [address] [place] [address] Raymundo Carey, [facility] Refill Coordination Outreach for Headache 08/06/2024 Telephone [facility] Neurology - [address] [phone] Kj Gloria MD PhD Medications Refill ([facility] refills needed) 07/31/2024 Telephone [facility] Interventional Pain [address] [place], [place] [phone] Bonnie Reyna RN Results from Last 3 Months Surgical History Surgery Date Site/Laterality Comments SPINAL FUSION L5-S1 Dr. Child 2006 LAMINECTOMY L5-S1 Dr. Bowers 1999 CHOLECYSTECTOMY TUBAL LIGATION BACK SURGERY Medical History Medical History Date Comments Bipolar disorder ([facility]) PTSD (post-traumatic stress disorder) Personality disorder ([facility]) Plantar fasciitis Drug abuse ([facility]) Arthritis Kidney disease Diabetes mellitus ([facility]) Heart disease Hypertension Nervousness(799.21) Eye problem Breathing problem Back pain Numbness Anxiety Depression Headache(784.0) History of substance abuse ([facility]) Tarsal tunnel syndrome Generalized headaches Mental disorder [...] 04/04/2020 Verbally Threaten Not on file 04/04/2020 Comments No Sex and Gender Information Value Date Recorded Sex Assigned at Not on file Legal Sex Female 14:17 EST Gender Identity Female 10/05/2021 12:31 EST Sexual Orientation Not on file Obstetrics History Last Filed Vital Signs Vital Sign Reading Time Taken Comments Blood Pressure 137/76 04/30/2024 1021 EDT Pulse 92 04/30/2024 1021 EDT Temperature 36.7 ??C (98.1 ??F) 07/02/2023 1018 EDT Respiratory Rate 17 04/30/2024 0904 EDT Oxygen Saturation 100% 04/30/2024 0904 EDT Inhaled Oxygen Concentration - - Weight 95.7 kg (211 lb) 09/20/2023 1047 EST Height 172.7 cm (5' 7.99) 09/20/2023 1047 EST Body Mass Index 32.09 09/20/2023 1047 EST Plan of Treatment Upcoming Encounters Date Type Department Care Team (Late st Contact Info) Description 09/18/2024 11:00 EST Office Visit [facility] Bariatric Surgery [facility] [address] [place] [address] Allen Thompson, MARGARITA-C 111 [facility] [address] [place] [phone] 10/26/2024 10:45 EST Telemedicine [facility] Neurology - [address] [place] [address] [place], [place] [phone] Sulema Nicole NP [address] [place] [address] [address] [place] [phone] Health Maintenance Due Date Last Done Comments Hepatitis C Screen 1973 Pneumococcal Immunization (1 of 2 - PCV) 1979 Hepatitis B Vaccine (1 of 3 - 19+ 3-dose series) 06/12 Advance Directive Review 01/29/2024 COVID-19 Vaccine ( season) 2024 Medical Devices Implanted Type Area Cloth Printer Device Identifier Shelf Expiration Date Model / [...] 1.1 W/kg for 25 minutes of imaging [employer] MEDICARE Advance Directives For more information, please contact: [phone] Documents on File Type Date Recorded Patient District Loss Prevention Manager Expl anation COLST/MOLST 01/28/2019 11:35 Advance Directive 09/05/2015 5:47 [place] a [place] signed 2011-05-29 * Full Code (Latest Code Status on File) Date Activated Date Inactivated Comments 09/05/2015 6:25 09/07/2015 14:23 Question Answer Comments Reason for decision includes: Full code consistent with overall plan of care Who participated in the discussion? Not Discusse d Care Teams Yard Foreman Relationship Specialty Start Date End Date Curtis Burns MD [address] [place] [address] PCP - General Emergency Medicine 07/06/22 Juma Herrera MD [address] [facility] [place] [phone] 12/08/18
--- OUTSIDE RECORDS SUMMARY | 2024-09-17 09:06 | XMS_ITS | Encounter Summary ---
Author Organization [facility] Address [facility] [place] [address] Care Team Providers Care Invasive Physician Name Role Phone Juma Herrera MD Primary Care Provider [facility] Encounter Details Date Type Department Care Team (Latest Contact Info) Description 06/10/2014 7:25 AM EDT - 06/10/2014 11:59 PM EDT Hospital [place] [address] CLINIC, Cheng Wayne MD [facility] ONCOLOGY [place] [phone] Breast lesion Discharge Disposition: Home Social History [...] disorder documented in this encounter Care Teams Invasive Physician Relationship Specialty Start Date End Date Juma Herrera MD PCP - General 05/21/14 09/10/24 documented as of this encounter
--- OUTSIDE RECORDS SUMMARY | 2024-09-17 09:06 | XMS_ITS | Encounter Summary ---
Author Organization [facility] Address [facility] [place] [address] Care Team Providers Care Kennel Technician Name Role Phone Juma Herrera MD Primary Care Provider [facility] le Encounter Details Date Type Department Care Team (Late st Contact Info) Description 11/30/2016 Notes Only Radiology at [facility] [place] [address] Compa Chu DO Social History Tobacco Use Types Packs/Day Years Used Date Smoking Tobacco: Former Sex and Gender Information Value Date Recorded Sex Assigned at Not on file Gender Identity Not on file Sexual Orientation Not on file documented as of this encounter Progress Notes * Compa Chu DO - 11/30/2016 3:18 PM EDT We were contacted by Dr. Dariela Stiles regarding Ms. Tia Spain. Ms. Spain is a 41 y.o. female with a history of bipolar disorder, anxiety, and PTSD who is POD#8 s/p laparoscopic-assisted vaginal total hysterectomy for menometrorrhagia at [facility]. This surgery had no immediate complications, and she was discharged to home on POD#1. She presented to the ED at [facility] (11/29/2016) with a complaint of increased vaginal discharge, which the patient was concerned may be fecal in origin. SPANISH LECTURER consultation in the ED found the discharge [...] she is not ill-appearing and admission to [facility] was not thought to be warranted [...] Dr. Nassar explained the IR services at [facility] are available 25/03, and if any new imaging becomesavailable for review then we would be glad to assist with any possible interventions for Ms. Spain. Compa Chu DO 11/30/2016 documented in this encounter Plan of Treatment Not on file documented as of this encounter Visit Diagnoses Not on filedocumented in this encounter Care Teams Kennel Technician Relationship Specialty Start Date End Date Juma Herrera MD PCP - General 05/21/14 09/10/24 documented as of this encounter
--- OUTSIDE RECORDS SUMMARY | 2024-09-17 09:06 | XMS_ITS | Encounter Summary ---
Author Organization [facility] Address [facility] [place] [address] Care Team Providers Care Outbound Telemarketer Name Role Phone Donna Mohr APRN Primary Care Provider [phone] Encounter Details Date Type Department Care Team (Latest Contact Info) Description 05/18/2014 3:20 PM EDT - 05/18/2014 11:59 PM EDT Hospital Encounter XRay at [address] [place] [phone] CLINIC, DR GAMINO Discharge Disposition: Home Social [...] on filedocumented in this encounter Care Teams Outbound Telemarketer Relationship Specialty Start Date End Date Donna Mohr APRN [address] [place] [address] PCP - General 12/12/11 05/20/14 documented as of this encounter
--- OUTSIDE RECORDS SUMMARY | 2024-09-17 09:06 | XMS_ITS | Encounter Summary ---
Author Organization [facility] Address [facility] [place] [address] Care Team Providers Care Spectrographer Name Role Phone Juma Herrera MD Primary Care Provider Unavailab le Reason for Visit * Reason Comments Follow-up Encounter Details Date Type Department Care Team (Late st Contact Info) Description 06/17/2014 1:40 PM EDT Office Visit Hematology and Oncology at [facility] [place] [address] Cheng Barber MD [facility] [place] [address] Papilloma of breast, right (Primary Dx) Discharge [...] Primary documented in this encounter Care Teams Spectrographer Relationship Specialty Start Date End Date Juma Herrera MD PCP - General 05/21/14 09/10/24 documented as of this encounter
--- OUTSIDE RECORDS SUMMARY | 2024-09-17 09:06 | XMS_ITS | Encounter Summary ---
Author Organization [facility] [place] [address] Care Team Providers Care Sales Systems Engineer Name Role Phone Donna Mohr APRN Primary Care Provider [phone] Encounter Details Date Type Department Care Team (Late st Contact Info) Description 05/18/2014 Orders Only Radiology [facility] [place] [place] [phone] Dariela Stiles MD [address] [place] [address] Social History Tobacco Use Types [...] MAMMOGRAMS (PERFORMED ON 05/14/14) FROM [facility] DATED 05/19/14: ?? DIAGNOSTIC IMAGING SUMMARY: ?? [...] screening mammograms from 05/14/14 from [facility]. ?? FINDINGS: The breasts are of scattered [...] MAMMOGRAMS [facility]14[facility]14[facility]: DIAGNOSTIC IMAGING SUMMARY: RIGHT BREAST: INCOMPLETE [...] screening mammograms from 05/14/14 from [facility]. FINDINGS: The breasts are of scattered fibroglandular [...] filedocumented in this encounter Care Teams Sales Systems Engineer Relationship Specialty Start Date End Date Donna Mohr APRN [address] [place] [address] PCP - General 12/12/11 05/20/14 documented as of this encounter
--- OUTSIDE RECORDS SUMMARY | 2024-09-17 09:06 | XMS_ITS | Encounter Summary ---
Author Organization [facility] Address [address] [place] [address] Care Team Providers Care Calender Let Off Helper Name Role Phone Juma Herrera MD Unavailable Curtis Burns MD Primary Care Provider [phone] Encounter Details Date Type Department Care Team (Latest Contact Info) Description 08/06/2024 Specialty Pharmacy [facility] [address] [place], [place] [id number] Raymundo Carey [facility] Refill Coordination Outreach for Headache [...] documented as of this encounter Functional Status * Are you deaf or do you have serious difficulty hearing? Answer Date of Assessment Author No 09/05/2015 12:00 Khoa Peñaloza * Are you blind or do you have serious difficulty seeing, even when wearing glasses? Answer Date of Assessment Author No 09/05/2015 12:00 Khoa Peñaloza * Do you have serious difficulty walking or climbing stairs? (5 years old or older) Answer Date of Assessment Author No 09/05/2015 12:00 Khoa Peñaloza * Do you have difficulty dressing or bathing? (5 years old or older) Answer Date of Assessment Author No 09/05/2015 12:00 EST Khoa Hernandez * Because of a physical, mental, or emotional condition, does this person have difficulty doing errands alone such as visiting a doctor's office or shopping? Answer Date of Assessment Author Yes 09/15/2018 7:52 EST Nina Hernandez an documented as of this encounter Mental Status * Because of a physical, mental, or emotional condition, does this person have serious difficulty concentrating, remembering, or making decisions? Answer Entry Date Author Yes 09/15/2018 7:52 EST Nina Hernandez an documented in this encounter Progress Notes * Ila Joseph - 08/06/2024 1502 EST calling in because she is due for next dose tomorrow and had not gotten a call from anyone. Per previous encounter, pt had extra on hand and outreach was pushed based on that. I let pt know we need a new rx and I will call back once we have it to set up her fill. documented in this encounter Plan of Treatment Upcoming Encounters Date Type Department Care Team (Late st Contact Info) Description 09/18/2024 11:00 EST Office Visit [facility] Bariatric Surgery [address] [address] Allen Thompson, ELISABETH [address] [facility] [address] [place] [phone] 10/26/2024 10:45 EST Telemedicine [facility] Neurology - [address] [place], [place] [phone] Sulema Nicole NP 1 [facility] 2 [place] [phone] documented as of this encounter Visit Diagnoses Not on filedocumented in this encounter Care Teams Calender Let Off Helper Relationship Specialty Start Date End Date Curtis Burns MD [address] [facility] [address] [place] [address] PCP - General Emergency Medicine 07/06/22 Juma Herrera MD [address] [facility] [place] [phone] 12/08/18 documented as of this encounter
--- OUTSIDE RECORDS SUMMARY | 2024-09-17 09:06 | XMS_ITS | Encounter Summary ---
Author Organization [facility] Address [facility] [place] [address] Care Team Providers Care School Clerk Name Role Phone Juma Herrera MD Primary Care Provider [facility] le Encounter Details Date Type Department Care Team (Late st Contact Info) Description 05/20/2014 Orders [place] [address] Antonella Boston MD [facility] DR DIAGNOSTIC [place] [address] Other (abnormal) findings on radiological examination of [...] Primary documented in this encounter Care Teams School Clerk Relationship Specialty Start Date End Date Juma Herrera MD PCP - General 05/21/14 09/10/24 documented as of this encounter
--- OUTSIDE RECORDS SUMMARY | 2024-09-17 09:06 | XMS_ITS | Encounter Summary ---
Author Organization [facility] Address [facility] [place] [address] Care Team Providers Care Well Logging Captain Name Role Phone Juma Herrera MD Primary Care Provider [facility] Encounter Details Date Type Department Care Team (Latest Contact Info) Description 06/10/2014 6:39 AM EDT - 06/10/2014 12:54 PM EDT Hospital Encounter [place] [address] Cheng Car MD [facility] [place] [address] Breast lesion Discharge Disposition: Home Social History [...] closest emergency room or call the hospital continuous miner operator helper at [phone] and ask for physician protection mgr covering for your physician. Questions or problems after 5pm or on a weekend: Call the [facility] continuous miner operator helper at and ask for the physician protection mgr covering for your doctor. * Patient Instructions* [...] 101.3 F. The number for questions is [phone] before 5 PM weekdays and [phone] after 5 PM and weekends. Pain Medication: [...] Appointment will bemailed to you. Please call [phone] (clinic number for appointments) to confirm date [...] Car MD - 06/10/2014 12:16 PM EDT [facility] Operative Note Patient Name: Tia Spain : [id number] MR#: [id number] Case Date: 06/10/2014 Surgeon: Surgeon(s) and Role: * Cheng Car MD - Primary * Kenrick Diehl MD - Resident-Paint Sprayer Sandblaster Preoperative diagnosis: RIGHT BREAST LESION Postoperative diagnosis: [...] (06/10/2014 11:49 AM EDT) Final Diagnosis ? [facility] ? Provider: ?? CHENG CAR ?Pt. Name: ?? CORETTATIA ? Acc #: ?[id number] ?Pt. ? Col Date: ?? 06/10/2014 ? [...] dense area of radial sclerosing lesions ? ([id number]), papillomas, and sclerosing adenosis, forming a conglomerate [...] averaging 0.5 cm in ? thickness. ? [facility] ? Provider: ?? CHENG CAR ?Pt. Name: ?? TIA SPAIN ? Acc #: ?[id number] ?Pt. ? Col Date: ?? 06/10/2014 ? [...] ? SECTIONS/PROCESSI NG: (A1) red margin; (A2) client services representative section from ? slice III; (A3) client services representative section from slice VII; (A4) client services representative ? section from slice V; (A5) site of biopsy clip; (A6-A7) client services representative ? sections from slice XI; (A8) client services representative section of slice XV. (R8) ? Ischemic Time: N/A minutes ??lloyd ? ---Clinical Information--- ? Specimen Submitted: ? A - Right breast lumpectomy ? Clinical History: ? Right breast lesion ? Clinical Diagnosis: ? Same 06/14/2014 3:40 PM EDT [facility] BREAST STRUCTURE / Unknown 06/10/2014 11:49 AM EDT 06/10/2014 11:49 AM EDT Cheng Car MD PATHOLOGY/CYTOLOGY O RDERABLES [facility] [place] [address] * Specimen to Pathology (surgical or derm) [...] injection (CANCELED) ONCE PRN, Starting on Karen 10 at 1144, Until Karen 10 at 1501, Intra-Operative (Intra-Procedure), Routine 1144 (Given [...] Pain, for breakthrough pain, Starting on Karen 10 at 1031, Until Karen 06/10/14 at 1501, Hold for respiratory rate less than 10 per minute. Maximum dose: 250 mcg over one hour., PACU Recovery 1034 (Given - Provid er: Ivelisse Bailey RN - Comment: given preop for wire breast pain) HYDROcodone-acetaminophen 5-325 mg per tablet 1-2 tablet 1-2 tablet, Oral, EVERY 6 HOURS PRN, Starting on Karen 10 at 1215, Until Karen 10 at 1501, [...] given) documented in this encounter Care Teams Well Logging Captain Relationship Specialty Start Date End Date Juma Herrera MD PCP - General 05/21/14 09/10/24 documented as of this encounter
--- OUTSIDE RECORDS SUMMARY | 2024-09-17 09:06 | XMS_ITS | Encounter Summary ---
Author Organization [facility] Address [facility] [place] [address] Care Team Providers Care Fur Remodeler Name Role Phone Juma Herrera MD Primary Care Provider Unavailab le Reason for Visit * Reason Comments Breast Mass Encounter Details Date Type Department Care Team (Late st Contact Info) Description 06/02/2014 9:30 AM EDT Office Visit Hematology and Oncology at [facility] [place] [address] Cheng Barber MD [facility] [place] [address] Abnormal mammogram (Primary Dx) Discharge Disposition: Home [...] AM EDT COPY: Juma Herrera M.D. Tia pSain is a 38-year-old woman sent for consultation by Juma Herrera for a core biopsy showing a sclerosing papillary lesion in her right breast. Tai states she has had an area of [...] at this visit. 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 When she asked about this I told [...] unspecified documented in this encounter Care Teams Fur Remodeler Relationship Specialty Start Date End Date Juma Herrera MD PCP - General 05/21/14 09/10/24 documented as of this encounter
--- OUTSIDE RECORDS SUMMARY | 2024-09-17 09:06 | XMS_ITS | Clinical Summary ---
Author Organization [facility] Address [facility] [place] [address] Care Team Providers Care Assurance Manager Name Role Phone None Primary Care Provider Unavailabl e Allergies Active Allergy Reactions Criticality Noted Date [...] Hepatitis B vaccine (0-59 yrs) (1) 1992 Tetanus/Diphtheria/Pertussis Vaccines (1 - Tdap) 06/12 HPV test 2003 PAP Smear 2003 Breast Cancer Share Decision Needed 2013 Breast Cancer screening 2013 Zoster vaccine (1 of 2) 2023 Covid-19 Vaccine (1 - season) 2024 Influenza (Flu) vaccine (1 o f 1 - Influenza standard series) 05/03/2024 Advance Directives * Full Code (Latest Code Status on File) Date Activated Date Inactivated Comments 06/10/2014 6:46 AM 06/10/2014 3:01 PM Question Answer Comments Does patient have decision m aking capacity? Yes, order is based on Patient wishes. Care Teams Assurance Manager Relationship Specialty Start Date End Date None None PCP - General 09/11/24
--- OUTSIDE RECORDS SUMMARY | 2024-09-17 09:06 | XMS_ITS | Encounter Summary ---
Author Organization [facility] Address [facility] [place] [address] Care Team Providers Care Name Plate Stamper Name Role Phone Juma Herrera MD Primary Care Provider [facility] Encounter Details Date Type Department Care Team (Latest Contact Info) Description 05/27/2014 10:40 AM EDT - 05/27/2014 11:59 PM EDT Hospital Encounter Mammography at [facility] [place] [address] Other (abnormal) findings on radiological examination of [...] the procedure without a resident. Cell phone: [phone] Narrative 06/08/2014 10:16 AM EDT VACUUM ASSISTED [...] Clinical indication: Right breast 15mm mass/architectural distortion [id number], 9cm from the nipple. 12-gauge Atec US [...] as discussed with the patient andconveyed to [facility]. I performed the procedure without a resident. Cell phone: [phone] Monica Ann MD IMG MAMMO ORDERABLES * Surgical Pathology Report (05/27/2014 11:15 AM EDT) Final Diagnosis ? [facility] ? Provider: ?? GABE BOSTON ?Pt. Name: ?? TIA SPAIN ? Acc #: ?[id number] ?Pt. ? Col Date: ?? 05/27/2014 ? [...] ? VAM ? 05/28/14 Verified by: ? Memoli MD, Vincent A ? Pathologist ? (Electronic Signature) ? The [...] ? 1. ??[place] 05/28/2014 9:57 AM EDT [facility] BREAST STRUCTURE / Unknown 05/27/2014 11:15 AM EDT 05/27/2014 11:15 AM EDT Gabe Boston MD PATHOLOGY/CYTOLOGY O [facility] [place] [address] documented in this encounter Visit Diagnoses Diagnosis Other (abnormal) findings on radiological examination of breast documented in this encounter Care Teams Name Plate Stamper Relationship Specialty Start Date End Date Juma Herrera MD PCP - General 05/21/14 09/10/24 documented as of this encounter
--- OUTSIDE RECORDS SUMMARY | 2024-09-17 09:06 | XMS_ITS | Encounter Summary ---
Author Organization [facility] Address [facility] [place] [address] Care Team Providers Care Boarder Machine Name Role Phone Donna Mohr APRN Primary Care Provider [phone] Reason for Visit * Reason Comments Skin Lesion Encounter Details Date Type Department Care Team (Late st Contact Info) Description 01/22/2012 2:30 PM EDT Office Visit Dermatology [facility] [place] [address] Ronda Hernandez PA [facility] [place] [address] Dermal nevus (Primary Dx) Discharge Disposition: Home [...] evaluation of a nevus on her right yazdanism that has been bothering her with symptoms [...] 1.0..4 cm flesh colored papule located on-right yazdanism. No deep cystic component appreciated on physical examination. She has some evidence of irritation with scaling over the superior aspect of the nevus. ASSESSMENT/PLAN: 1.Dermal nevus right yazdanism, possible cystic component Procedure: Skin biopsy. Location:right yazdanism Discussed indications for procedure and expectations including [...] changes: Ronda Hernandez PA-C Section of Dermatology [facility] documented in this encounter Plan of [...] 3:28 PM EDT) Surgical Pathology Report ? [facility] ? Provider: ?? RONDA HERNANDEZ ?Pt. Name: ?? TIA HITCHCOCK ? Acc #: ?[id number] ? Pt. ? Col Date: ?? 01/22/2012 ? /Sex: ?1975,(36 ? years),Female ? Rec Date: ?? 01/22/2012 ? LOC: ?4M ? SURGICAL PATHOLOGY ? ---Pathologic Diagnosis--- ? Skin, right yazdanism, shave removal: ?1. Dermal nevus. ?2. Superficial [...] ? Specimen Submitted: ? A - Right yazdanism, shave removal ? Clinical History/Diagnosis: ? [facility] ? Provider: ?? RONDA HERNANDEZ ?Pt. Name: ?? TIA HITCHCOCK ? Acc #: ?[id number] ? Pt. ? Col Date: ?? 01/22/2012 ? /Sex: ?1975,(36 ? years),Female ? Rec Date: ?? 01/22/2012 ? LOC: ?4M ? 0.4-cm, flesh-colored papule / dermal nevus ? [facility] 01/22/2012 3:28 PM EDT Ronda AVILA PATHOLOGY/CYTOLOGY O RDERABLES [facility] * Specimen to Pathology (surgical or [...] unspecified documented in this encounter Care Teams Boarder Machine Relationship Specialty Start Date End Date Donna Mohr, RN DERMATOLOGY [address] [place] [address] PCP - General 12/12/11 05/20/14 documented as of this encounter
--- OUTSIDE RECORDS SUMMARY | 2024-09-17 09:06 | XMS_ITS | Referral Summary ---
Author Organization [facility] Address [address] [place] [address] Care Team Providers Care Senior Sas Developer Name Role Phone Juma Herrera MD Unavailable Curtis Burns MD Primary Care Provider [phone] Encounters Date Type Department Care Team Description 08/06/[address] [facility] 1 [place], [place] [phone] Raymundo Carey [facility] Refill Coordination Outreach for Headache 08/06/2024 Telephone [facility] - [facility] 1 [place], [place] [phone] Kj Gloria MD PhD Medications Refill ([facility] refills needed) 07/31/[address] 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 Answer Date of Assessment Author No 09/05/2015 12:00 EST Khoa Hernandez bruce * Are you blind or do you have serious difficulty seeing, even when wearing glasses? Answer Date of Assessment Author No 09/05/2015 12:00 EST Khoa Hernandez * Do you have serious difficulty walking or climbing stairs? (5 years old or older) Answer Date of Assessment Author No 09/05/2015 12:00 EST Khoa Hernandez * Do you have difficulty dressing or bathing? (5 years old or older) Answer Date of Assessment Author No 09/05/2015 12:00 Khoa Peñaloza * Because of a physical, mental, or emotional condition, does this person have difficulty doing errands alone such as visiting a doctor's office or shopping? Answer Date of Assessment Author Yes 09/15/2018 7:52 EST Nina Hernandez an Mental Status * Because of a physical, mental, or emotional condition, does this person have serious difficulty concentrating, remembering, or making decisions? Answer Entry Date Author Yes 09/15/2018 7:52 NATALY Nina Hernandez mike Plan of Treatment Upcoming Encounters Date Type Department Care Team (Late st Contact Info) Description 09/18/2024 11:00 EST Office Visit [facility] Bariatric Surgery - [place] [address] [place], [place] [address] Allen Thompson PA-C [address] [facility] 5 [place] [phone] 10/26/2024 10:45 EST Telemedicine [facility] Neurology - [address] [phone] Sulema Nicole NP [address] [place] [address] 2 [place] [phone] Medical Devices Implanted Type Area Flight Engineer Manager Device Identifier Shelf Expiration Date Model / [...] 1.1 W/kg for 25 minutes of imaging [employer] MED[employer]ARE Advance Directives For more information, please contact: [phone] Documents on File Type Date Recorded Patient Roll Up Helper Expl anation COLST/MOLST 01/28/2019 11:35 Advance Directive 09/05/2015 5:47 [place] signed 2011-05-29 * Full Code (Latest Code Status on File) Date Activated Date Inactivated Comments 09/05/2015 6:25 09/07/2015 14:23 Question Answer Comments Reason for decision includes: Full code consistent with overall plan of care Who participated in the discussion? Not Discusse d Care Teams Senior Sas Developer Relationship Specialty Start Date End Date Curtis Burns MD [address] [place] [address] PCP - General Emergency Medicine 07/06/22 Juma Herrera MD [address] [facility] [place] [phone] 12/08/18
--- OUTSIDE RECORDS SUMMARY | 2024-09-17 09:06 | XMS_ITS | Encounter Summary ---
Author Organization [facility] Address [facility] [place] [address] Care Team Providers Care Crystal Syrup Maker Name Role Phone Juma Herrera MD Primary Care Provider [facility] Encounter Details Date Type Department Care Team (Late st Contact Info) Description 06/02/2014 10:30 AM EDT Office Visit Same Day at [facility] [place] [address] Anesthesia Record Procedure Summary Procedure Name Responsible [...] on filedocumented in this encounter Care Teams Crystal Syrup Maker Relationship Specialty Start Date End Date Juma Herrera MD PCP - General 05/21/14 09/10/24 documented as of this encounter
--- OUTSIDE RECORDS SUMMARY | 2024-09-17 09:06 | XMS_ITS | Encounter Summary ---
Author Organization [facility] Address [facility] [place] [address] Care Team Providers Care Detail Supervisor Name Role Phone Juma Herrera MD Primary Care Provider [facility] Encounter Details Date Type Department Care Team (Late st Contact Info) Description 06/02/2014 Orders Only [place] [phone] Cheng Barber MD [facility] [place] [address] Breast lesion Social History Tobacco Use Types [...] disorder documented in this encounter Care Teams Detail Supervisor Relationship Specialty Start Date End Date Juma Herrera MD PCP - General 05/21/14 09/10/24 documented as of this encounter
--- OUTSIDE RECORDS SUMMARY | 2024-09-17 09:06 | XMS_ITS | Encounter Summary ---
Author Organization [facility] Address [facility] [place] [address] Care Team Providers Care Vault Worker Name Role Phone Donna Mohr APRN Primary Care Provider Encounter Details Date Type Department Care Team ([facility] st Contact Info) Description 05/18/2014 External Results XRay at [address] [place] [address] Provider, Scanning Social History Tobacco Use Types [...] on filedocumented in this encounter Care Teams Vault Worker Relationship Specialty Start Date End Date Donna Mohr APRN [address] [place] [address] PCP - General 12/12/11 05/20/14 documented as of this encounter
--- OUTSIDE RECORDS SUMMARY | 2024-09-17 09:06 | XMS_ITS | Encounter Summary ---
Author Organization Formerly [facility] [place] [address] Care Team Providers Care Fun House Operator Name Role Phone Juma Herrera MD Primary Care Provider [facility] Encounter Details Date Type Department Care Team (Late st Contact Info) Description 06/10/2014 11:17 AM EDT Anesthesia Event [place] [phone] Teri Dsouza MD Jenson, Shannon L, PA Anesthesia Record Procedure Summary Procedure Name Responsible [...] 06/02/2014 1:48 PM EDT Pre-Anesthesia Evaluation for: iTa Spain a 38 y.o. female. Procedure(s): EXCISION [...] Assessment: (+) upper dentures and lower dentures [facility] [place]: Anesthesia Plan: ASA 3 MAC, with a(n) intravenous induction 38 yo female with PMH of morbid obesity seen in PAT prior to excision of R breast lesion to evaluate if appropriate for OSC. Pt denies any problems with anesthesia in the past. Her last surgery was in 2011 at [facility] (neck surgery). Pt has some SOB with [...] in the past. We will get her [facility] records to confirm this. Anesthesia options, risks, and complications discussed. Will plan on GA with ETT or LMA. Pt can proceed with surgery at the OSC. Janie Ellison PA-C Pre-Admission Testing Pager [phone] Region - Other Informed Consent: Anesthetic plan and risks discussed with patient. Use of blood products discussed with whom consented to blood products. Plan discussed with CAT. [facility] Assessment: documented in this encounter Plan of [...] hr documented in this encounter Care Teams Fun House Operator Relationship Specialty Start Date End Date Juma Herrera MD PCP - General 05/21/14 09/10/24 documented as of this encounter
--- OUTSIDE RECORDS SUMMARY | 2024-09-17 09:06 | XMS_ITS | Encounter Summary ---
Author Organization [facility] Address [facility] [place] [address] Care Team Providers Care Track Laborer Name Role Phone Juma Herrera MD Primary Care Provider [facility]as Encounter Details Date Type Department Care Team (Late st Contact Info) Description 06/10/2014 11:30 AM EDT - 06/10/2014 12:38 PM EDT Surgery [place] [phone] Cheng Car MD [facility] [place] [address] EXCISION LESION, BREAST W/ PREOP.MARKER (NEEDLE LOC.) [...] closest emergency room or call the hospital burn table operator at [phone] and ask for physician material control clerk covering for your physician. Questions or problems after 5pm or on a weekend: Call the [facility] burn table operator at and ask for the physician material control clerk covering for your doctor. * Patient [...] 101.3 F. The number for questions is [phone] before 5 PM weekdays and [phone] after 5 PM and weekends. Pain Medication: [...] Appointment will bemailed to you. Please call [phone] (clinic number for appointments) to confirm date [...] Car MD - 06/10/2014 12:16 PM EDT [facility] Operative Note Patient Name: Tia Spain : [id number] MR#: [id number] Case Date: 06/10/2014 Surgeon: Surgeon(s) and Role: * Cheng Car MD - Primary * Kenrick Diehl MD - Resident-Brood Station Manager Preoperative diagnosis: RIGHT BREAST LESION Postoperative diagnosis: [...] (06/10/2014 11:49 AM EDT) Final Diagnosis ? [facility] ? Provider: ?? CHENG CAR ?Pt. Name: ?? CORETTAROSCOETIA Eileen ? Acc #: ?[id number] ?Pt. ? Col Date: ?? 06/10/2014 ? [...] dense area of radial sclerosing lesions ? ([id number]), papillomas, and sclerosing adenosis, forming a conglomerate [...] averaging 0.5 cm in ? thickness. ? [facility] ? Provider: ?? CHENG CAR ?Pt. Name: ?? TIA SPAIN ? Acc #: ?[id number] ?Pt. ? Col Date: ?? 06/10/2014 ? [...] ? SECTIONS/PROCESSI NG: (A1) red margin; (A2) sales representative girls' apparel section from ? slice III; (A3) sales representative girls' apparel section from slice VII; (A4) sales representative girls' apparel ? section from slice V; (A5) site of biopsy clip; (A6-A7) sales representative girls' apparel ? sections from slice XI; (A8) sales representative girls' apparel section of slice XV. (R8) ? Ischemic Time: N/A minutes ??lloyd ? ---Clinical Information--- ? Specimen Submitted: ? A - Right breast lumpectomy ? Clinical History: ? Right breast lesion ? Clinical Diagnosis: ? Same 06/14/2014 3:40 PM EDT [facility] BREAST STRUCTURE / Unknown 06/10/2014 11:49 AM EDT 06/10/2014 11:49 AM EDT Cheng Car MD PATHOLOGY/CYTOLOGY O RDERARAMONE Performing Organization Address City/State/[facility] Co de Phone Number [facility] [place] [address] * Specimen to Pathology (surgical or derm) (06/10/2014 11:49 AM EDT) AP Specimen 06/10/2014 11:4 9 AM EDT 06/10/2014 11:49 AM EDT Narrative RAYNA ELLIS - 06/10/2014 11:49 AM EDT Specimen requisition ordered. ??Separate Pathology report to follow Cheng Car MD PATHOLOGY/CYTOLOGY O RDERARAMONE RAYNA ELLIS documented in this encounter Visit [...] (1 %) injection ONCE PRN, Starting on Karne 06/10/14 at 1144, Until Karen 06/10/14 at [...] given) documented in this encounter Care Teams Track Laborer Relationship Specialty Start Date End Date Juma Herrera MD PCP - General 05/21/14 09/10/24 documented as of this encounter
--- OUTSIDE RECORDS SUMMARY | 2024-09-17 09:06 | XMS_ITS | Encounter Summary ---
Author Organization Formerly [facility] Address [facility] [address] Care Team Providers Care Lifestyle Coordinator Name Role Phone Juma Herrera MD Primary Care Provider [facility] rivas Encounter Details Date Type Department Care Team (Latest Contact Info) Description 05/24/2014 8:28 AM EDT - 05/24/2014 11:59 PM EDT Hospital Encounter Mammography at [facility] [place] [address] Other (abnormal) findings on radiological examination of [...] the procedure without a resident. Cell phone: [phone] Narrative 06/08/2014 10:16 AM EDT VACUUM ASSISTED [...] Clinical indication: Right breast 15mm mass/architectural distortion [id number], 9cm from the nipple. 12-gauge Atec US [...] the procedure without a resident. Cell phone: [phone] Monica Ann MD IMG MAMMO ORDERABLES * [...] breast documented in this encounter Care Teams Lifestyle Coordinator Relationship Specialty Start Date End Date Juma Herrera MD PCP - General 05/21/14 09/10/24 documented as of this encounter
--- OUTSIDE RECORDS SUMMARY | 2024-09-17 09:06 | XMS_ITS | Encounter Summary ---
Author Organization [facility] Address [facility] [place] [address] Care Team Providers Care Slip Tender Name Role Phone Juma Herrera MD Primary Care Provider [facility] rivas Encounter Details Date Type Department Care Team (Latest Contact Info) Description 11/30/2016 - 11/30/2016 11:59 PM EDT Hospital Encounter Radiology Library at [facility] [place] [phone] French Graff MD Pain Discharge Disposition: Home [...] CT Pelvis (11/30/2016 12:00 AM EDT) Narrative [facility] - 11/30/2016 2:31 PM EDT This exam is for storage only and is auto-finalizing. French Graff MD IM FILM LIBRARY ORD ERABLES Performing Organization Address City/State/[facility] Co de Phone Number [place], [place] documented in this encounter Visit Diagnoses Diagnosis Pain Generalized pain documented in this encounter Care Teams Slip Tender Relationship Specialty Start Date End Date Juma Herrera MD PCP - General 05/21/14 09/10/24 documented as of this encounter
--- OUTSIDE RECORDS SUMMARY | 2024-09-17 09:06 | XMS_ITS | Encounter Summary ---
Author Organization [facility] Address [facility] [place] [address] Care Team Providers Care Track Coach Name Role Phone Juma Herrera MD Primary Care Provider [facility] Encounter Details Date Type Department Care Team (Late st Contact Info) Description 05/26/2014 [place] [phone] Wu Vaz MD [facility] [place] [address] Social History Tobacco Use Types Packs/Day Years [...] on filedocumented in this encounter Care Teams Track Coach Relationship Specialty Start Date End Date Juma Herrera MD PCP - General 05/21/14 09/10/24 documented as of this encounter
--- OUTSIDE RECORDS SUMMARY | 2024-09-17 09:07 | XMS_ITS | Encounter Summary ---
Author Organization [facility] Address [address] [place] [address] Care Team Providers Care Director Of Capital Giving Name Role Phone Juma Herrera MD Unavailable Curtis Burns MD Primary Care Provider [phone] Reason for Visit * Reason Onset Date Comments Appointment Related 11/07/2023 Encounter Details Date Type Department Care Team (Late st Contact Info) Description 11/07/2023 Telephone [facility] Neurology - [place] [address] [place] [phone] Kj Gloria MD PhD 1 [facility] 2 [place] [address] Appointment Related Social History Tobacco [...] No 09/05/2015 12:00 EST Khoa Hernandez * Are you blind or do you [...] Nina Hernandez an documented in this encounter Miscellaneous Notes * Telephone Encounter - Kizzy Casillas - 11/07/2023 1501 EST LM for Tia to schedule FUR via [employer] Televideo with Dr. Gloria. Upon callback, please schedule from recall documented in this encounter Plan of Treatment Upcoming Encounters Date Type Department Care Team (Late st Contact Info) Description 09/18/2024 11:00 EST Office Visit [facility] Bariatric Surgery [place] [address] [place] [address] Allen Thompson, PA-C [address] [place] [address] 5 [place] [phone] 10/26/2024 10:45 EST Telemedicine [facility] Neurology - [address] [phone] Sulema Nicole NP [address] [place] [address] 2 [place] [phone] documented as of this encounter Visit Diagnoses Not on filedocumented in this encounter Care Teams Director Of Capital Giving Relationship Specialty Start Date End Date Curtis Burns MD 26 [facility] [address] [place] [address] PCP - General Emergency Medicine 07/06/22 Juma Herrera MD [address] [place] [address] 12/08/18 documented as of this encounter
--- OUTSIDE RECORDS SUMMARY | 2024-09-17 09:07 | XMS_ITS | Encounter Summary ---
Author Organization [facility] Address [address] [place] [address] Care Team Providers Care Reformatory Attendant Name Role Phone Juma Herrera MD Unavailable Curtis Burns MD Primary Care Provider Reason for Referral * (Routine/Next Available) - New Request Specialty Diagnoses / Procedures Referred By Contac t Referred To Contact Procedures PAIN CLINIC [place] RADIOFREQUENCY ABLATION Catalino Garrett MD [address] [address] Phone: tel: fax: Referral ID Status Reason Start Date Expiration Date V isits Requested Visits Authorized [id number] New Request 04/29/2024 1 1 Reason for Visit * (Routine/Next Available) - New Request Specialty Diagnoses / Procedures Referred By Wili t Referred To Contact Procedures PAIN CLINIC [place] RADIOFREQUENCY ABLATION Catalino Garrett MD [address] [place] [address] Phone: tel: fax: Referral ID Status Reason Start Date Expiration Date V isits Requested Visits Authorized [id number] New Request 04/29/2024 1 1 Encounter Details Date Type Department Care Team (Latest Contact Info) Description 04/30/2024 8:30 EDT - 04/30/2024 23:59 EDT Hospital Encounter [facility] [place] [address] Discharge Disposition: Home or Self [...] Date of Assessment Author Yes 09/15/2018 7:52 Nina Peñaloza documented as of this encounter Mental Status * Because of a physical, mental, or emotional condition, does this person have serious difficulty concentrating, remembering, or making decisions? Answer Entry Date Author Yes 09/15/2018 7:52 Nina Peñaloza documented in this encounter Medications at Time of Discharge acetaminophen (TYLENOL EX STR RAPID RELEASE ORAL) [...] Cap 3 08/21/2012 prochlorperazine (COMPAZINE) 10 mg tabletIndications: S/P laparoscopic sleeve gastrectomy,Gastro esophageal reflux disease without esophagitis Take 1 Tab by mouth every 6 hours as needed for Nausea 60 Tab 0 08/31/2015 SUMAtriptan Succinate 6 mg/0.5 mL cartridge Inject 6 mg into the skin as needed (migraine). Take as directed. 6 mL 11 04/27/2024 UNABLE TO FIND daily. Med Name: Salon Pas/Lidocaine Patch erenumab-aooe (AIMOVIG AUTOINJECTOR) 140 mg/mL auto-injector Inject 1 mL into the skin every 28 days. 3 mL 3 08/02/2023 4 documented as of this encounter Discharge Disposition Disposition Code Departure Means Destination Home or Self Care documented in this encounter Plan of Treatment Upcoming Encounters Date Type Department Care Team (Late st Contact Info) Description 09/18/2024 11:00 EST Office Visit [facility] Bariatric Surgery - [place] [address] [place] [address] Allen Thompson PA-C 111 [facility], [facility], Level [address] [place] [address] 10/26/2024 10:45 EST Telemedicine [facility] Neurology - S [address] [address] Sulema Nicole NP 1 [facility], Level [address] [place] [phone] documented as of this encounter Procedures Procedure Name Priority Date/Time Associated Diagnosis Comments PAIN CLINIC FL RADIOFREQUENCY ABLATION Routine 04/30/2024 10:33 EDT documented in this encounter Results * PAIN CLINIC FL RADIOFREQUENCY ABLATION (04/30/2024 10:33 EDT) Narrative 04/30/2024 10:34 EDT This is a non-reportable exam. us Catalino Garrett MD IMG OTHER IMAGING ORDERABLES Fin al Result documented in this encounter Visit Diagnoses Not on filedocumented in this encounter Care Teams Reformatory Attendant Relationship Specialty Start Date End Date Curtis Burns MD [address] [place] [address] PCP - General Emergency Medicine 07/06/22 Juma Herrera MD [address] [place] [address] 12/08/18 documented as of this encounter
--- OUTSIDE RECORDS SUMMARY | 2024-09-17 09:07 | XMS_ITS | Encounter Summary ---
Author Organization [facility] Address [address] [place] [address] Care Team Providers Care Sheet Metal Lay Out Worker Name Role Phone Juma Herrera MD Unavailable Curtis Burns MD Primary Care Provider [phone] Reason for Visit * Reason Onset Date Comments Prior Auth, Medication 08/08/2023 Encounter Details Date Type Department Care Team (Late st Contact Info) Description 08/08/2023 Telephone [facility] 1 [place], [place] [phone] Kj Gloria MD PhD 1 [facility] 2 [place] [address] Prior Auth, Medication Social History [...] 7:52 Nina Peñaloza documented in this encounter Miscellaneous Notes * Telephone Encounter - Angela Nunes - 08/08/2023 1159 EST Prior Authorization Approval Medication: Aimovig Insurance Name:optum Insurance Type: Commercial Approval Dates: approved through 09/01/24 Authorization Number: [id number] Required Pharmacy: No requirement [facility] able to fill?: YES Additional Info/Other Notes: Approval scanned in chart Prior Authorization Submission Process - Routine Re-Auth Medication: Aimovig Insurance: Optum Insurance Type: Commercial Date PA Request Received: 08/08/23 PA Submission Date: 08/08/23 [facility]: [id number] Notes: Re auth Submitted by: Angela Ríos Phone: [phone] documented in this encounter Plan of Treatment Upcoming Encounters Date Type Department Care Team (Late st Contact Info) Description 09/18/2024 11:00 EST Office Visit [facility] Bariatric Surgery [address] [address] Allen Thompson, ZHOUC [address] [place] [address], [address] [place] [phone] 10/26/2024 10:45 EST Telemedicine [facility] Neurology - [address] [phone] Sulema Nicole, DATE PULLER 1 [facility] Level [address] [place] [address] documented as of this encounter Visit Diagnoses Not on filedocumented in this encounter Care Teams Sheet Metal Lay Out Worker Relationship Specialty Start Date End Date Curtis Burns MD 26 [facility] [address] [place] [address] PCP - General Emergency Medicine 07/06/22 Juma Herrera MD [address] [facility] [place] [address] 12/08/18 documented as of this encounter
--- OUTSIDE RECORDS SUMMARY | 2024-09-17 09:07 | XMS_ITS | Encounter Summary ---
Author Organization [facility] Address [address] [place] [address] Care Team Providers Care National Service Officer Name Role Phone Juma Herrera MD Unavailable Curtis Burns MD Primary Care Provider [phone] Reason for Visit * Reason Comments Follow-up Telemedicine Video Visit Encounter Details Date Type Department Care Team (Late st Contact Info) Description 04/27/2024 14:30 EDT Telemedicine [facility] Neurology - S [place] [address] [place] [phone] Kj Gloria MD PhD 1 [facility] Level [address] [place] [address] Chronic migraine without aura without [...] 7:52 Nina Peñaloza documented in this encounter Ordered Prescriptions Prescription Sig Dispense Quantity Refills Last Filled Start Date End Date SUMAtriptan Succinate 6 mg/0.5 mL cartridge Inject 6 mg into the skin as needed (migraine). Take as directed. 6 mL 11 04/27/2024 documented in this encounter Progress Notes * Kj Gloria MD PhD - 04/27/2024 1430 EDT Neurology Consult Follow Up Note Date of Service: 04/27/2024 PCP: Curtis Burns Follow up for: migraine [...] last seen in follow-up via Zoom on 11/04/23. At that time, she reported ~ 3 to 5 significant headache days per month, with an increase in stress headaches. She said that headaches were not terrible. She had a 5-day migraine in October related to crazy stress due to family issues. It was responsive to sumatriptan 6mg sc. 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 She says that she has adequate social work and behavioral care. She said that Amovig had been tremendous, I don't have those severe headaches anymore. She was taking Aimovig 140mg Q 28 [...] Previous medications for migraine have included amitriptyline, topiramate. On 10/08/23, she underwent repeat cervical epidural steroid injections at [facility] for chronic neck painby Dr Zimmerman at the [facility]. On 11/19/23, she underwent diagnostic and Therapeutic bilateral sacroiliac joint injections. On 02/07/24, she underwent repeat cervical epidural steroid injections at C7-T1. On 03/11/24 and then on 04/09/24, she underwent diagnostic lumbar facet procedure (bupivacaine) at L3L4, L4L5. Headaches have been not bad. She had a 3 day headache ~ 2 weeks ago. Otherwise, headaches have been maybe 3 days per month, but she does not headaches every month. Medications and Allergies: Current Outpatient Medications Medication acetaminophen (TYLENOL EX [...] medications for this visit. Allergies Allergen Reactions Adhesive Other (See Comments) Skin irritation, paper tape ok Bee Sting [Hymenoptera Allergenic Extract] Swelling Fever and vomiting Codeine Hives and Nausea And Vomiting Other - See Comments Nausea And Vomiting Root beer Pt says she can sometimes drink it Assessment and Plan: Chronic migraine Continue current regimen. I refilled prescription for sumatriptan 6mg sc cartridges for 1 year. Keep headache record. Return to clinic 6 months. Transition care to another Headache Medicine Provider. I spent a total of > 30 minutes on the date of this encounter meeting with the patient and reviewing documentation/coordinating care as described in the above note. Tia was seen today for follow-up and telemedicine video visit. Diagnoses and all orders for this visit: Chronic migraine without aura without status migrainosus, not intractable Kj Gloria MD PhD 04/27/2024 14:23 documented in this encounter Plan of Treatment Upcoming Encounters Date Type Department Care Team (Late st Contact Info) Description 09/18/2024 11:00 EST Office Visit [facility] Bariatric Surgery - [place] [address] [place] [address] Allen Thompson PA-C 111 [facility], Level [address] [place] [address] 10/26/2024 10:45 EST Telemedicine [facility] Neurology - [facility] 1 [place] [address] Sulema Nicole, PSYCHIATRIC CLINICAL NURSE SPECIALIST 1 [facility], Level [address] [place] [address] documented as of this encounter Visit Diagnoses Diagnosis Chronic migraine without aura without status migrainosus, not intractable- Primary Chronic migraine without aura, without mention of intractable migraine without mention of status migrainosus documented in this encounter Discontinued Medications Medication Sig Discontinue Reason Start Date End Da te SUMAtriptan Succinate 6 mg/0.5 mL cartridge Inject 6 mg into the skin as needed (migraine). Take as directed. Reorder 02/21/2021 04/27/2024 documented as of this encounter Care Teams National Service Officer Relationship Specialty Start Date End Date Curtis Burns MD 26 [facility] [address] [place] [address] PCP - General Emergency Medicine 07/06/22 Juma Herrera MD [address] [facility] [place] [address] 12/08/18 documented as of this encounter
--- OUTSIDE RECORDS SUMMARY | 2024-09-17 09:07 | XMS_ITS | Encounter Summary ---
Author Organization [facility] Address [address] [place] [address] Care Team Providers Care Client Support Professional Name Role Phone Juma Herrera MD Unavailable Curtis Burns MD Primary Care Provider Reason for Visit * Reason Onset Date Comments Appointment Related 01/21/2024 Encounter Details Date Type Department Care Team ([facility] st Contact Info) Description 01/21/2024 Telephone [facility] Neurology - [place] [address] [place] [phone] Kj Gloria MD PhD 1 [facility] 2 [place] [address] Appointment Related Social History Tobacco [...] Assessment Author Yes 09/15/2018 7:52 Nina Peñaloza an documented as of this encounter Mental Status * Because of a physical, mental, or emotional condition, does this person have serious difficulty concentrating, remembering, or making decisions? Answer Entry Date Author Yes 09/15/2018 7:52 Nina Peñaloza an documented in this encounter Miscellaneous Notes * Telephone Encounter - Kizzy Casillas - 01/21/2024 1644 EDT 2nd attempted outreach; for Tia to schedule FUR via [email or web address] Televideo with Dr. Gloria. Upon callback, please schedule from recall. Sent [employer] message as well. documented in this encounter Plan of Treatment Upcoming Encounters Date Type Department Care Team (Late st Contact Info) Description 09/18/2024 11:00 EST Office Visit [facility] Bariatric Surgery - [place] [address] [place], [place] [address] Allen Thompson PA-C 111 [facility] 5 [place] [address] 10/26/2024 10:45 EST Telemedicine [facility] Neurology - [address] [phone] Sulema Nicole, GIULIA [address] [place] [address] 2 [place] [address] documented as of this encounter Visit Diagnoses Not on filedocumented in this encounter Care Teams Client Support Professional Relationship Specialty Start Date End Date Curtis Burns MD 26 [facility] [address] [place] [address] PCP - General Emergency Medicine 07/06/22 Juma Herrera MD [address] [place] [address] 12/08/18 documented as of this encounter
--- OUTSIDE RECORDS SUMMARY | 2024-09-17 09:07 | XMS_ITS | Encounter Summary ---
Author Organization [facility] Address [address] [place] [address] Care Team Providers Care Safety Representative Name Role Phone Juma Herrera MD Unavailable Curtis Burns MD Primary Care Provider [phone] Reason for Visit * Reason Onset Date Comments Results 04/10/2024 Encounter Details Date Type Department Care Team (Late st Contact Info) Description 04/10/2024 Telephone [facility] Interventional Pain [address] [place], [place] [phone] Shantelle Gautam RN Results Social History Tobacco [...] hr dx phone call Diagnostic facet L3L4/L4L5 niko Garrett 04/09/24 Injection History: 04/09/24: diagnostic lumbar [...] Info) Description 09/18/2024 11:00 EST Office Visit [facility] Bariatric Surgery - [place] [address] [place], [place] [phone] Allen Thompson PA-C [address] [place] [address] 5 [place] [phone] 10/26/2024 10:45 EST Telemedicine [facility] Neurology - [address] [address] Sulema Nicole NP [address] [place] [address] Level 2 [place] [address] documented as of this encounter Visit Diagnoses Not on filedocumented in this encounter Care Teams Safety Representative Relationship Specialty Start Date End Date Curtis Burns MD 26 [facility] [address] [place] [address] PCP - General Emergency Medicine 07/06/22 Juma Herrera MD [address] [place] [phone] 12/08/18 documented as of this encounter
--- OUTSIDE RECORDS SUMMARY | 2024-09-17 09:07 | XMS_ITS | Encounter Summary ---
Author Organization [facility] Address [address] [place] [address] Care Team Providers Care Passport Application Examiner Name Role Phone Juma Herrera MD Unavailable Curtis Burns MD Primary Care Provider [phone] Reason for Visit * Reason Onset Date Comments Results 07/31/2024 Encounter Details Date Type Department Care Team (Late st Contact Info) Description 07/31/[address] [facility] Interventional Pain [address] [place], [place] [phone] Bonnie Reyna, ALEXANDER Results Social History Tobacco Use Types Packs/Day [...] Date of Assessment Author No 09/05/2015 12:00 NATALY Khoa Hernandez * Because of a physical, mental, or emotional condition, does this person have difficulty doing errands alone such as visiting a doctor's office or shopping? Answer Date of Assessment Author Yes 09/15/2018 7:52 NATALY Nina Hernandez documented as of this encounter Mental Status * Because of a physical, mental, or emotional condition, does this person have serious difficulty concentrating, remembering, or making decisions? Answer Entry Date Author Yes 09/15/2018 7:52 NATALY Nina Hernandez documented in this encounter Miscellaneous Notes * Telephone Encounter - Bonnie Reyna RN - 07/31/2024 0517 EST ----- Message from Nurse Nicole sent at 04/30/2024 10:07 EDT ----- Regardin weeks RFA call Contact: Bilateral L3, L4 RFA. Injection History: 04/30/24: lumbar radiofrequency ablation at L3L4, L4L5 2 sets pos diagnostic blocks at these levels 07/31/24: Patient in a meeting, stated she will call us back. documented in this encounter Plan of Treatment Upcoming Encounters Date Type Department Care Team (Late st Contact Info) Description 09/18/2024 11:00 EST Office Visit [facility] Bariatric Surgery - [place] [address] [place] [address] Allen Thompson PA-C [address] [place] [address], Level 5 [place] [address] 10/26/2024 10:45 EST Telemedicine [facility] Neurology - [address] [address] Sulema Nicole, AUTOMOTIVE PROJECT ENGINEER 1 [facility], Level 2 [place] [phone] documented as of this encounter Visit Diagnoses Not on filedocumented in this encounter Care Teams Passport Application Examiner Relationship Specialty Start Date End Date Curtis Burns MD [address] [facility] [address] [place] [address] PCP - General Emergency Medicine 07/06/22 Juma Herrera MD [address] [facility] [place] [phone] 12/08/18 documented as of this encounter
--- OUTSIDE RECORDS SUMMARY | 2024-09-17 09:07 | XMS_ITS | Encounter Summary ---
Author Organization [facility] Address [address] [place] [address] Care Team Providers Care Delivery Specialist Name Role Phone Juma Herrera MD Unavailable Curtis Burns MD Primary Care Provider [phone] Reason for Visit * Reason Comments Neck Pain Bilateral more right side Encounter Details Date Type Department Care Team (Latest Contact Info) Description 01/30/2024 11:00 EDT Office Visit [facility] Interventional Pain [address] [place] [address] Catalino Garrett MD [address] [facility] [address] [place] [address] Spondylosis of 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 [...] - documented in this encounter Functional Status * Are you deaf or do you have serious difficulty hearing? Answer Date of Assessment Author No 09/05/2015 12:00 Khoa Peñaloza bruce * Are you blind or do you have serious difficulty seeing, even when wearing glasses? Answer Date of Assessment Author No 09/05/2015 12:00 Khoa Peñaloza bruce * Do you have serious difficulty walking or climbing stairs? (5 years old or older) Answer Date of Assessment Author No 09/05/2015 12:00 Khoa Peñaloza bruce * Do you have difficulty dressing or bathing? (5 years old or older) Answer Date of Assessment Author No 09/05/2015 12:00 Khoa Peñaloza bruce * Because of a physical, mental, or [...] 7:52 Nina Peñaloza documented in this encounter Progress Notes * Catalino Garrett [...] Date Anxiety Arthritis Back pain Bipolar disorder ([facility]) Breathing problem Depression Diabetes mellitus ([facility]) Drug abuse ([facility]) Environmental allergies Eye problem Generalized headaches Headache(784.0) Heart disease History of substance abuse ([facility]) Hypertension Kidney disease Mental disorder Nervousness(799.21) Numbness Personality disorder ([facility]) Plantar fasciitis PTSD (post-traumatic stress disorder) Tarsal tunnel syndrome Past Surgical HX: Past Surgical History: Procedure Laterality Date BACK SURGERY CHOLECYSTECTOMY LAMINECTOMY L5-S1 Dr. Bowers 1999 SPINAL FUSION L5-S1 Dr. 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
--- OUTSIDE RECORDS SUMMARY | 2024-09-17 09:07 | XMS_ITS | Encounter Summary ---
Author Organization [facility] Address [address] [place] [address] Care Team Providers Care Freight Loading Supervisor Name Role Phone Juma Herrera MD Unavailable Curtis Burns MD Primary Care Provider [phone] Encounter Details Date Type Department Care Team (Latest Contact Info) Description 01/29/2024 Specialty Pharmacy [facility] Specialty Pharmacy 1 [place], [place] [phone] Raymundo Carey [facility] Refill Coordination Outreach for Headache Social History [...] Nina Peñaloza an documented in this encounter Plan of Treatment Upcoming Encounters Date Type Department Care Team (Late st Contact Info) Description 09/18/2024 11:00 EST Office Visit [facility] Bariatric Surgery [facility] [address] [place], [place] [address] Allen Thompson PA-C 111 [facility] 5 [place] [phone] 10/26/2024 10:45 EST Telemedicine [facility] Neurology - [address] [phone] Sulema Nicole NP [address] [place] [address] 2 [place] [phone] documented as of this encounter Visit Diagnoses Not on filedocumented in this encounter Care Teams Freight Loading Supervisor Relationship Specialty Start Date End Date Curtis Burns MD [address] [facility] [address] [place], [place] [address] PCP - General Emergency Medicine 07/06/22 Juma Herrera MD [address] [facility] [place] [address] 12/08/18 documented as of this encounter
--- OUTSIDE RECORDS SUMMARY | 2024-09-17 09:07 | XMS_ITS | Encounter Summary ---
Author Organization [facility] Address [address] [place] [address] Care Team Providers Care Soup Person Name Role Phone Juma Herrera MD Unavailable Curtis Burns MD Primary Care Provider [phone] Encounter Details Date Type Department Care Team (Latest Contact Info) Description 02/07/2024 8:04 EDT - 02/07/2024 23:59 EDT Hospital Encounter [facility] Xray [address] [place], [place] [phone] Discharge Disposition: Home or Self Care Social [...] needed for Nausea 60 Tab 0 08/31/2015 UNABLE TO FIND daily. Med Name: Salon Pas/Lidocaine Patch erenumab-aooe (AIMOVIG AUTOINJECTOR) 140 mg/mL auto-injector Inject 1 mL into the skin every 28 days. 3 mL 3 08/02/2023 4 SUMAtriptan Succinate 6 mg/0.5 mL cartridge Inject 6 mg into the skin as needed (migraine). Take as directed. 6 mL 11 02/21/2021 4 documented as of this encounter Discharge Disposition Disposition Code Departure Means Destination Home or Self Care documented in this encounter Plan of Treatment Upcoming Encounters Date Type Department Care Team (Late st Contact Info) Description 09/18/2024 11:[address] [facility] Bariatric Surgery [facility] 353 [place] [address] Allen Thompson, PA-C 111 [facility] 5 [place] [phone] 10/26/2024 10:[address] [facility] Neurology - [address] [address] Sulema Nicole NP [address] [place] [address] 2 [place] [phone] documented as of this encounter Procedures Procedure Name Priority Date/Time Associated Diagnosis Comments PAIN CLINIC [place] CERVICAL INJECTION Routine 02/07/2024 13:23 EDT documented in this encounter Results * PAIN CLINIC [place] CERVICAL INJECTION (02/07/2024 13:23 EDT) Narrative 02/07/2024 13:23 EDT This is a non-reportable exam. us Catalino Garrett MD IMG OTHER IMAGING ORDERABLES Fin al Result documented in this encounter Visit Diagnoses Not on filedocumented in this encounter Care Teams Soup Person Relationship Specialty Start Date End Date Curtis Burns MD 26 [facility] [address] [place] [address] PCP - General Emergency Medicine 07/06/22 Juma Herrera MD [address] [facility] [place] [phone] 12/08/18 documented as of this encounter
--- OUTSIDE RECORDS SUMMARY | 2024-09-17 09:07 | XMS_ITS | Encounter Summary ---
Author Organization [facility] Address [address] [place] [address] Care Team Providers Care Muskrat Trapper Name Role Phone Juma Herrera MD Unavailable Curtis Burns MD Primary Care Provider [phone] Encounter Details Date Type Department Care Team (Latest Contact Info) Description 11/18/2023 Specialty Pharmacy [facility] Specialty Pharmacy 1 [place], [place] [phone] Raymundo Cintron, [facility] Refill Coordination Outreach for Headache Social History [...] Date of Assessment Author No 09/05/2015 12:00 Khao Peñaloza * Are you blind or do [...] Answer Entry Date Author Yes 09/15/2018 7:52 iNna Peñaloza an documented in this encounter Progress Notes * Raymundo Cintron RPH - 11/18/2023 1503 EDT [facility] Specialty Pharmacy Change HealthCare Downtime Prescription [...] Info) Description 09/18/2024 11:00 EST Office Visit [facility] Bariatric Surgery - [place] [address] [place] [address] Allen Thompson PA-C 111 [facility] 5 [place] [phone] 10/26/2024 10:45 EST Telemedicine [facility] Neurology - [address] [address] Sulema Nicole NP [address] [place] [address] 2 [place] [phone] documented as of this encounter Visit Diagnoses Not on filedocumented in this encounter Care Teams Muskrat Trapper Relationship Specialty Start Date End Date Curtis Burns MD 26 [facility] [address] [place] [address] PCP - General Emergency Medicine 07/06/22 Juma Herrera MD [address] [place] [address] 12/08/18 documented as of this encounter
--- OUTSIDE RECORDS SUMMARY | 2024-09-17 09:07 | XMS_ITS | Encounter Summary ---
Author Organization [facility] Address [address] [place] [address] Care Team Providers Care Manager Supplier Name Role Phone Juma Herrera MD Unavailable Curtis Burns MD Primary Care Provider [phone] Reason for Visit * Reason Onset Date Comments Results 03/12/2024 Encounter Details Date Type Department Care Team (Late st Contact Info) Description 03/12/2024 Telephone [facility] Interventional Pain [address] [place], [place] [phone] Shantelle Gautam RN Results Social History Tobacco [...] Next step/appt per MD plan: Forward to neonatal pediatric nurse MILLIE NUNEZ RN documented in this encounter Plan of Treatment Upcoming Encounters Date Type Department Care Team (Late st Contact Info) Description 09/18/2024 11:00 EST Office Visit [facility] Bariatric Surgery - [place] [address] [place] [address] Allen Thompson PA-C 111 [facility], Level 5 [place] [phone] 10/26/2024 10:45 EST Telemedicine [facility] Neurology - [address] [address] Sulema Nicole, JUNIOR DESIGNER 1 [facility] 2 [place] [phone] documented as of this encounter Visit Diagnoses Not on filedocumented in this encounter Care Teams Manager Supplier Relationship Specialty Start Date End Date Curtis Burns MD 26 [facility] [address] [place], [place] [address] PCP - General Emergency Medicine 07/06/22 Juma Herrera MD [address] [facility] [place] [phone] 12/08/18 documented as of this encounter
--- OUTSIDE RECORDS SUMMARY | 2024-09-17 09:07 | XMS_ITS | Encounter Summary ---
Author Organization [facility] Address [address] [place] [address] Care Team Providers Care Hot Metal Mixer Operator Name Role Phone Juma Herrera MD Unavailable Curtis Burns MD Primary Care Provider [phone] Encounter Details Date Type Department Care Team (Latest Contact Info) Description 04/09/2024 7:33 EDT - 04/09/2024 23:59 EDT Hospital Encounter [facility] Pain Clinic Xray [address] [place], [place] [phone] Discharge Disposition: Home or Self Care Social [...] Info) Description 09/18/2024 11:00 EST Office Visit [facility] Bariatric Surgery [facility] 353 [place] [address] Allen Thompson, PA-C 111 [facility] 5 [place] [phone] 10/26/2024 10:45 EST Telemedicine [facility] Neurology - [address] [address] Sulema Nicole NP [address] [place] [address] 2 [place] [phone] documented as of this encounter Procedures Procedure Name Priority Date/Time Associated Diagnosis Comments PAIN CLINIC FL LUMBAR INJECTION Routine 04/09/2024 14:08 EDT documented in this encounter Results * PAIN CLINIC FL LUMBAR INJECTION (04/09/2024 14:08 EDT) Narrative 04/09/2024 14:09 EDT This is a non-reportable exam. us Catalino Garrett MD IMG OTHER IMAGING ORDERABLES Fin al Result documented in this encounter Visit Diagnoses Not on filedocumented in this encounter Care Teams Hot Metal Mixer Operator Relationship Specialty Start Date End Date Curtis Burns MD 26 [facility] [address] [place] [address] PCP - General Emergency Medicine 07/06/22 Juma Herrera MD [address] [facility] [place] [phone] 12/08/18 documented as of this encounter
--- OUTSIDE RECORDS SUMMARY | 2024-09-17 09:07 | XMS_ITS | Encounter Summary ---
Author Organization [facility] Address [address] [place] [address] Care Team Providers Care Surveyor Instrument Assistant Name Role Phone Juma Herrera MD Unavailable Curtis Burns MD Primary Care Provider [phone] Encounter Details Date Type Department Care Team (Latest Contact Info) Description 09/18/2023 Specialty Pharmacy [facility] Specialty Pharmacy 1 [place], [place] [phone] Ana Rosa Croft [facility] Clinical Follow-up (2x annually) for Headache, Refill [...] 7:52 Nina Peñaloza documented in this encounter Plan of Treatment Upcoming Encounters Date Type Department Care Team (Late st Contact Info) Description 09/18/2024 11:00 EST Office Visit [facility] Bariatric Surgery - [address] [address] Allen Thompson PALizettC 111 [facility] 5 [place] [phone] 10/26/2024 10:45 EST Telemedicine [facility] Neurology - [address] [address] Sulema Nicole, FOOD PRODUCTION MACHINE OPERATOR [address] [place] [address] 2 [place] [phone] documented as of this encounter Visit Diagnoses Not on filedocumented in this encounter Care Teams Surveyor Instrument Assistant Relationship Specialty Start Date End Date Curtis Burns MD 26 [facility] [address] [place], [place] [address] PCP - General Emergency Medicine 07/06/22 Juma Herrera MD [address] [place] [address] 12/08/18 documented as of this encounter
--- OUTSIDE RECORDS SUMMARY | 2024-09-17 09:07 | XMS_ITS | Encounter Summary ---
Author Organization [facility] Address [address] [place] [address] Care Team Providers Care Carbide Powder Processor Name Role Phone Juma Herrera MD Unavailable Curtis Burns MD Primary Care Provider [phone] Reason for Visit * Reason Comments Back Pain L3L4, L4L5 diagnosti c facet * Prior Authorization (Routine) - Authorization Not Required Specialty Diagnoses / Procedures Referred By Wili t Referred To Contact Pain Medicine Diagnoses Spondylosis without myelopathy or radiculopathy, lumbosacral region L3L4, L4L5 diagnostic facet, PA Pending (handed instructions at check out) Procedures GA NJX DX/THER AGT PVRT FACET JT LMBR/SAC 1 LEVEL GA NJX DX/THER AGT PVRT FACET JT LMBR/SAC 2ND LEVEL PAIN CLINIC PROCEDURE [facility] Interventional Pain 62 [facility] [place] [address] Phone: tel: fax: Catalino Garrett MD 62 [facility] [address] [place] [address] Phone: tel: fax: Referral ID Status Reason Start Date Expiration Date Visits Requested Visits Authorized [id number] Authorization Not Required 1 1 Encounter Details Date Type Department Care Team (Latest Contact Info) Description 04/09/2024 13:30 EDT Office Visit [facility] Interventional Pain 62 [facility] [place] [address] Catalino Garrett MD [address] [employer] [address] [place] [address] Spondylosis of 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 myelopathy [...] Entry Date Author Yes 09/15/2018 7:52 NATALY LazarosonNina documented in this encounter Patient Instructions * Patient Instructions* Mohini Pollock RN - 04/09/2024 13:30 EDT [facility] [address] [address] Medial Branch Block Patient Instructions You underwent [...] Mohini Brown RN documented in this encounter Progress Notes * Kendy Perez MA - 04/09/2024 1330 EDT [facility] Rooming Note Does patient have a Portable Pinch Riveter? yes Is patient NPO? (Solids since midnight & liquids for 4 hrs) yes Blood Thinners: Is patient on Blood Thinners? no If yes, taking? N/a If stopped, who authorized stopping? N/a Related comments: Infections: Any recent infections, fever [...] in the 2 weeks? no Other: no Oswestry Low Back Disability Questionnaire Pain Intensity The pain is bad but I manage without taking pain killers (1) Personal Care (e.g. Washing, Dressing) I can look after myself normally but it causes extra pain (1) Lifting Pain prevents me from lifting heavy weights, but I can manage light to medium weights if they are conveniently positioned (3) Walking Pain prevents me walking more than ?? mile (3) Sitting Pain prevents me from sitting more than ?? hour (3) Standing Pain prevents me from standing for more than 30 minutes (3) Sleeping Pain prevents me from sleeping at all (5) Social Life My social life is normal but increases the degree of pain (1) Travelling Pain restricts me to journeys of less than 1 hour (3) Employment/Homemaking I can perform most of my homemaking/ job duties, but pain prevents me from performing more physically stressful activities (e.g. lifting, vacuuming) (2) * Catalino Garrett MD - 04/09/2024 1330 EDT Patient Name: Tia Rooney : 1975 Date of Service: 04/09/24 Crimper Assembler: Gerry MEHTA Sales And Service Change Leader: None Procedure: diagnostic lumbar facet procedure at [...] and new imaging were reviewed. Injection History: 04/09/24: diagnostic lumbar facet procedure at L3L4, L4L5 [...] recent infections. Physical Exam: Vitals: BP (!) 124/100 (BP Cuff Location: Right arm, BP Patient Position: Sitting, BP Cuff Sizes: Adult, large) Pulse 88 Resp 17 SpO2 95% General: Patient is alert and oriented, no [...] patient prior to discharge. Gerry MEHTA * Mohini Pollock RN - 04/09/2024 1330 EDT ATTENTION: An active Time-Out initiated [...] Info) Description 09/18/2024 11:00 EST Office Visit [facility] Bariatric Surgery - [place] [address] [place], [place] [address] Allen Thompson PA-C 111 [facility], [facility], Level 5 [place] [phone] 10/26/2024 10:45 EST Telemedicine [facility] Neurology - [facility] [place] [address] Sulema Nicole, GRANTS MANAGER 1 [facility], Level 2 [place] [address] documented as of this encounter [...] EDT 1.6 mL documented in this encounter Care Teams Carbide Powder Processor Relationship Specialty Start Date End Date Curtis Burns MD 26 [facility] [address] [place], [place] [address] PCP - General Emergency Medicine 07/06/22 Juma Herrera MD [address] [facility] [place] [phone] 12/08/18 documented as of this encounter
--- OUTSIDE RECORDS SUMMARY | 2024-09-17 09:07 | XMS_ITS | Encounter Summary ---
Author Organization [facility] Address [address] [place] [address] Care Team Providers Care Undergraduate Internship Name Role Phone Juma Herrera MD Unavailable Curtis Burns MD Primary Care Provider [phone] Reason for Visit * Reason Comments Follow-up Telemedicine Video Visit Encounter Details Date Type Department Care Team (Late st Contact Info) Description 11/04/2023 14:00 EST Telemedicine [facility] Neurology - [place] [address] [place] [phone] Kj Gloria MD PhD 1 [facility] 2 [place] [address] Chronic migraine without aura without [...] Nina Peñaloza an documented in this encounter Progress [...] : home The location of the provider: [place] The following people and their roles were [...] Description 09/18/2024 11:00 EST Office Visit [facility] Bariatric Surgery - [address] [place] [address] Allen Thompson PALizettC [address] [place] [address] 5 [place] [phone] 10/26/2024 10:45 EST Telemedicine [facility] Neurology - [place] 1 [place], [place] [address] Sulema Nicole, SUPERVISOR MAINTENANCE AND CUSTODIANS 1 [facility], Level [address] [place] [phone] documented as of this encounter Visit Diagnoses Diagnosis Chronic migraine without aura without status migrainosus, not intractable- Primary Chronic migraine without aura, without mention of intractable migraine without mention of status migrainosus documented in this encounter Care Teams Undergraduate Internship Relationship Specialty Start Date End Date Curtis Burns MD 26 [facility] [address] [place] [address] PCP - General Emergency Medicine 07/06/22 Juma Herrera MD [address] [facility] [place] [phone] 12/08/18 documented as of this encounter
--- OUTSIDE RECORDS SUMMARY | 2024-09-17 09:07 | XMS_ITS | Encounter Summary ---
Author Organization [facility] Address [address] [place] [address] Care Team Providers Care Spanish Professor Name Role Phone Juma Herrera MD Unavailable Curtis Burns MD Primary Care Provider [phone] Reason for Visit * Reason Comments Neck Pain center * Prior Authorization (Routine) - Authorized Specialty Diagnoses / Procedures [facility] Referred To Contact Pain Medicine Diagnoses Radiculopathy, cervical region YSABEL / pa pending Procedures KS NJX DX/THER SBST INTRLMNR CRV/THRC W/IMG GDN PAIN CLINIC PROCEDURE [facility] Interventional Pain [address] [place] [address] Phone: tel: fax: Catalino Garrett MD [address] [place], [place] [address]No [employer] [address] [place] [phone] Phone: tel: fax: Referral ID Status Reason Start Date Expiration Date V isits Requested Visits Authorized [id number] Authorized 08/30/2023 11/28/2023 1 1 Encounter Details Date Type Department Care Team (Latest Contact Info) Description 10/08/2023 11:15 EST Office Visit [facility] Interventional Pain [address] [place] [address] Catalino Garrett MD [address] [employer] [address] [place] [phone] Radiculopathy, cervical region (Primary Dx); Sacroiliitis [...] 7:52 Nina Peñaloza documented in this encounter Patient Instructions * Patient Instructions* Delaney Reyna RN - 10/08/2023 11:15 EST [facility] [address] [address] Patient Instructions You have had your cervical [...] Management Rooming Note Does patient have a Yard Rigger? yes Is patient NPO? (Solids since midnight [...] Complaint Patient presents with Neck Pain center Manager Gallery: Dr. Garrett Life Skills Coach: MD Erasmo Procedure: Cervical epidural steroid injections [...] Assessment: 1. Radiculopathy, cervical region 2. Sacroiliitis ([facility]) Plan: Ms. Tia Rooney is a 48 [...] saved during the procedure Barak Zimmerman MD [facility] Interventional Pain Medicine Fellow (PGY-5) 10/08/23 Attending attestation: I have seen and evaluated the patient with the resident/fellow. I agree withthe findings and plan of care documented in the resident's/fellow's note. In addition, I was present and participating during the entire procedure. Catalino Garrett MD * Delaney Reyna RN - 10/08/2023 1114 EST ATTENTION: This Checklist should be reviewed with the patient, provider, nurse/MA, and radiology asst in the room prior to local anesthetic [...] Info) Description 09/18/2024 11:00 EST Office Visit [facility] Bariatric Surgery [facility] [address] [place], [place] [address] Allen Thompson PA-C [address] [place] [address] 5 [place] [address] 10/26/2024 10:45 EST Telemedicine [facility] Neurology - S [address] [address] Sulema Nicole NP [address] [place] [address] Level [address] [place] [address] documented as of this encounter [...] mL documented in this encounter Care Teams Spanish Professor Relationship Specialty Start Date End Date Curtis Burns MD 26 [facility] [address] [place] [address] PCP - General Emergency Medicine 07/06/22 Juma Herrera MD [address] [facility] [place] [phone] 12/08/18 documented as of this encounter
--- OUTSIDE RECORDS SUMMARY | 2024-09-17 09:07 | XMS_ITS | Encounter Summary ---
Author Organization [facility] Address [address] [place] [address] Care Team Providers Care Pulp Mill Team Leader Name Role Phone Juma Herrera MD Unavailable Curtis Burns MD Primary Care Provider [phone] Reason for Visit * Reason Onset Date Comments Appointment Related 05/13/2024 Encounter Details Date Type Department Care Team (Late st Contact Info) Description 05/13/[address] [facility] Interventional Pain [address] [place] [address] Catalino Garrett MD 62 [facility] [address] [place] [address] Appointment Related Social History Tobacco [...] encounter Miscellaneous Notes * Telephone Encounter - Katie Marmolejo - 05/13/2024 1118 EDT LMOVM for Pt to call back to schedule a repeat cervical SEE per Dr Garrett's notes below. * Telephone Encounter - Katie Marmolejo - 05/13/2024 1117 EDT ----- Message from Catalino Garrett sent at 05/13/2024 9:18 EDT ----- Regarding: cervical see Hi, Can somebody reach out this patient and see if she wants us to schedule repeat cervical SEE? Yuri Laird documented in this encounter Plan of Treatment Upcoming Encounters Date Type Department Care Team (Late st Contact Info) Description 09/18/2024 11:00 EST Office Visit [facility] Bariatric Surgery [facility] [address] [place] [address] Allen Thompson PA-C [address] [place] [address], [facility], Level [address] [place] [address] 10/26/2024 10:45 EST Telemedicine [facility] Neurology - [place] [address] [place] [phone] Sulema Nicole, METAL COATER OPERATOR 1 [facility], Level [address] [place] [phone] documented as of this encounter Visit Diagnoses Not on filedocumented in this encounter Care Teams Pulp Mill Team Leader Relationship Specialty Start Date End Date Curtis Burns MD 26 [facility] [address] [place], [place] [address] PCP - General Emergency Medicine 07/06/22 Juma Herrera MD [address] [facility] [place] [phone] 12/08/18 documented as of this encounter
--- OUTSIDE RECORDS SUMMARY | 2024-09-17 09:07 | XMS_ITS | Encounter Summary ---
Author Organization [facility] Address [address] [place] [address] Care Team Providers Care Fence Gate Assembler Name Role Phone Juma Herrera MD Unavailable Curtis Burns MD Primary Care Provider [phone] Encounter Details Date Type Department Care Team (Latest Contact Info) Description 10/08/2023 7:42 EST - 10/08/2023 23:59 EST Hospital Encounter [facility] Xray [address] [place], [place] [phone] Discharge Disposition: Home or Self Care Social [...] Info) Description 09/18/2024 11:00 EST Office Visit [facility] Bariatric Surgery [address] [address] Allen Thompson, MARGARITA-C [address] [place] [address] 5 [place] [phone] 10/26/2024 10:45 EST Telemedicine [facility] Neurology - [facility] 1 [place] [address] Sulema Nicole NP [address] [place] [address] 2 [place] [phone] documented as of this encounter Procedures Procedure Name Priority Date/Time Associated Diagnosis Comments PAIN CLINIC [place] CERVICAL INJECTION Routine 10/08/2023 11:44 EST documented in this encounter Results * PAIN CLINIC [place] CERVICAL INJECTION (10/08/2023 11:44 EST) Narrative 10/08/2023 11:45 EST This is a non-reportable exam. us Catalino Garrett MD IMG OTHER IMAGING ORDERABLES Fin al Result documented in this encounter Visit Diagnoses Not on filedocumented in this encounter Care Teams Fence Gate Assembler Relationship Specialty Start Date End Date Curtis Burns MD 26 [facility] [address] [place] [address] PCP - General Emergency Medicine 07/06/22 Juma Herrera MD [address] [facility] [place] [phone] 12/08/18 documented as of this encounter
--- OUTSIDE RECORDS SUMMARY | 2024-09-17 09:07 | XMS_ITS | Encounter Summary ---
Author Organization [facility] Address [address] [place] [address] Care Team Providers Care Brick Setter Name Role Phone Juma Herrera MD Unavailable Curtis Burns MD Primary Care Provider [phone] Reason for Visit * Reason Comments Obesity Post op sleeve 8 yea rs Encounter Details Date Type Department Care Team (Late st Contact Info) Description 09/20/2023 11:00 EST Office Visit [facility] Bariatric Surgery [facility] [address] [place] [address] Allen Thompson, PA-C [address] [place] [address], [facility], Level [address] [place] [address] Morbid obesity (HCC-CMS) (Primary Dx); [...] EST documented in this encounter Functional Status * Are you deaf or do you have serious difficulty hearing? Answer Date of Assessment Author No 09/05/2015 12:00 EST Mary, Khoa bruce * Are you blind or do [...] of Assessment Author No 09/05/2015 12:00 EST Mary Khoa bruce * Because of a physical, mental, or emotional condition, does this person have difficulty doing errands alone such as visiting a doctor's office or shopping? Answer Date of Assessment Author Yes 09/15/2018 7:52 EST Nina Hernandez documented as of this encounter Mental Status * Because of a physical, mental, or emotional condition, does this person have serious difficulty concentrating, remembering, or making decisions? Answer Entry Date Author Yes 09/15/2018 7:52 Nina Peñaloza documented in this encounter Ordered Prescriptions Prescription Sig Dispense Quantity Refills Last Filled Start Date End Date omeprazole (PRILOSEC) 40 mg capsule Take 1 Capsule by mouth daily. 90 Capsule 3 09/20/2023 documented in this encounter Progress Notes * Allen Thompson PA-C - 09/20/2023 1100 EST 09/20/2023 Tia Rooney is here in follow-up to [...] with BMI of 45.0-49.9, adult ([facility]) Chronic migraine without aura without status migrainosus, [...] by her PCP Seen and discussed with Bilingual Teacher at this visit. Time spent: 27 minutes [...] breakfast and lunch meal Supplement Changes:Continue current [facility] Initiate food logs Education Provided: Weight Control :Maintain wt or lose 10 lbs in the next year Other:[place] for Anti-inflammatory diet foods documented in this encounter Plan of Treatment Upcoming Encounters Date Type Department Care Team (Late st Contact Info) Description 09/18/2024 11:00 EST Office Visit [facility] Bariatric Surgery - [place] [address] [place] [address] Allen Thompson, PA-C 111 [facility], Level [address] [place] [phone] 10/26/2024 10:45 EST Telemedicine [facility] Neurology - [address] [phone] Sulema Nicole NP [address] [place] [address] [address] [place] [phone] documented as of this encounter Visit Diagnoses Diagnosis Morbid obesity ([facility])- Primary Morbid obesity S/P laparoscopic sleeve gastrectomy Bariatric surgery status BMI 32.0-32.9,adult Body Mass Index 32.0-32.9, adult documented in this encounter Discontinued Medications Medication Sig Discontinue Reason Start Date End Da te omeprazole (PRILOSEC) 40 mg capsule Take 1 Capsule by mouth daily. Reorder 09/21/2022 09/20/2023 documented as of this encounter Care Teams Brick Setter Relationship Specialty Start Date End Date Curtis Burns MD [address] [place] [address] PCP - General Emergency Medicine 07/06/22 Juma Herrera MD [address] [place] [phone] 12/08/18 documented as of this encounter
--- OUTSIDE RECORDS SUMMARY | 2024-09-17 09:07 | XMS_ITS | Encounter Summary ---
Author Organization [facility] Address [address] [place] [address] Care Team Providers Care Moisture Machine Tender Name Role Phone Juma Herrera MD Unavailable Curtis Burns MD Primary Care Provider [phone] Reason for Visit * Reason Onset Date Comments Appointment Related 08/29/2023 Encounter Details Date Type Department Care Team (Late st Contact Info) Description 08/29/2023 Telephone [facility] Interventional Pain [address] [place] [address] Catalino Garrett MD 62 [facility] [address] [place] [address] Appointment Related Social History Tobacco [...] Info) Description 09/18/2024 11:00 EST Office Visit [facility] Bariatric Surgery [place] [address] [place] [address] Allen Thompson, PALizettC [address] [facility], [facility], Level [address] [place] [phone] 10/26/2024 10:45 EST Telemedicine [facility] Neurology - S [address] [phone] Sulema Nicole, SENIOR ACCOUNTANT CPA 1 [facility] Level [address] [place] [address] documented as of this encounter Visit Diagnoses Not on filedocumented in this encounter Care Teams Moisture Machine Tender Relationship Specialty Start Date End Date Curtis Burns MD 26 [facility] [address] [place] [address] PCP - General Emergency Medicine 07/06/22 Juma Herrera MD [address] [facility] [place] [address] 12/08/18 documented as of this encounter
--- OUTSIDE RECORDS SUMMARY | 2024-09-17 09:07 | XMS_ITS | Encounter Summary ---
Author Organization [facility] Address [address] [place] [address] Care Team Providers Care Events Manager Name Role Phone Juma Herrera MD Unavailable Curtis Burns MD Primary Care Provider [phone] Encounter Details Date Type Department Care Team (Latest Contact Info) Description 05/06/2024 Specialty Pharmacy [facility] 1 [place], [place] [phone] Charlotte Bhatti, [facility] Refill Coordination Outreach for Headache, Clinical Follow-up (2x annually) for Headache Social History Tobacco Use Types [...] Info) Description 09/18/2024 11:00 EST Office Visit [facility] Bariatric Surgery [address] [address] Allen Thompson PA-C 111 [facility] 5 [place] [phone] 10/26/2024 10:45 EST Telemedicine [facility] Neurology - [address] [phone] Sulema Nicole, CUTTING INSPECTOR [address] [place] [address] 2 [place] [phone] documented as of this encounter Visit Diagnoses Not on filedocumented in this encounter Care Teams Events Manager Relationship Specialty Start Date End Date Curtis Burns MD 26 [facility] [address] [place] [address] PCP - General Emergency Medicine 07/06/22 Juma Herrera MD [address] [facility] [place] [place] [phone] 12/08/18 documented as of this encounter
--- OUTSIDE RECORDS SUMMARY | 2024-09-17 09:07 | XMS_ITS | Encounter Summary ---
Author Organization [facility] Address [address] [place] [address] Care Team Providers Care Cushion Mat Maker Name Role Phone Juma Herrera MD Unavailable Curtis Burns MD Primary Care Provider [phone] Reason for Visit * Reason Comments Back Pain L3L4, L4L5 RFA * Prior Authorization (Routine) - Authorization Not Required Specialty Diagnoses / Procedures Referred By Contac t Referred To Contact Pain Medicine Diagnoses Spondylosis without myelopathy or radiculopathy, lumbosacral region L3L4, L4L5 RFA, PA Pending (handed instructions at check out) Procedures IN DSTR NROLYTC AGNT PARVERTEB FCT SNGL LMBR/SACRAL IN DSTR NROLYTC AGNT PARVERTEB FCT ADDL LMBR/SACRAL PAIN CLINIC RFA [facility] Interventional Pain [address] [facility] [place] [address] Phone: tel: fax: Catalino Garrett MD [address] [facility] [address] [place] [address] Phone: tel: fax: Referral ID Status Reason Start Date Expiration Date Visits Requested Visits Authorized [id number] Authorization Not Required 1 1 Encounter Details Date Type Department Care Team (Latest Contact Info) Description 04/30/2024 9:30 EDT Office Visit [facility] Interventional Pain [address] [facility] [address] Catalino Garrett MD [facility] [address] [place] [address] Spondylosis of 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 The purpose of this procedure is to relieve or reduce your pain. The following information should help you over the next few days/weeks regarding what you may expect. Please take it easy for the rest of today. DO NOT drive a car for the remainder of the day. If you feel sore where the needle(s) entered for the block, please use ice on the area. You may leave the ice on for up to 20 minutes at a time. Do not use heat, as this can increase swelling. As long as your primary doctor has indicated no restrictions, you may take a mild pain medicine, such as acetaminophen (Tylenol), ibuprofen (Advil, Nuprin, Motrin IB, etc.) or aspirin, if needed. Please keep track of how your pain feels over the next few weeks. On average patients start to notice relief at 3-4 weeks but this can take up to 8-10 weeks to know whether this procedure was helpful. If the block causes numbness (asleep) feeling or weakness, that will wear off within several hours. If the area that the needle(s) [...] call our office at once. Instructions for follow-up: One of our nurses will be phoning you at 12 weeks to see if you are getting relief. You will also be scheduled for a follow up in 7 months with a provider. We document this in your medical record. Inorder to have this procedure repeated and approved by your insurance, we have to supply them with your results (% & months of relief). If at any time this wears off, please call us. If you have any questions about your block, please call Patient Education Topic: Method: Handout and Verbal Taught to: Patient Barriers: None Outcomes: verbalized understanding DELANEY REYNA RN documented in this encounter Progress Notes * Kendy Perez MA - 04/30/2024 0930 EDT [facility] Rooming Note Does patient have a Chaser Helper? yes Is patient NPO? (Solids since midnight & liquids for 4 hrs) yes Blood Thinners: Is patient on Blood Thinners? no If yes, taking? N/a If stopped, who authorized stopping? N/a Related comments: Infections: Any recent infections, fever of illnesses? yes If on antibiotics, is it 7-10 days past the date of completion of antibiotics? Finished abx yesterday for BV. : (for females of child-bearing age) Is there a chance current ? no Do you have any type of implanted device? no Vaccination: Have you had or are you planning to have a vaccination in the 2 weeks? no Other: no Oswestry Low Back Disability Questionnaire Pain Intensity I can tolerate the pain I have without having to use pain killers (0) Personal Care (e.g. Washing, Dressing) It is painful to look after myself and I am slow and careful (2) Lifting Pain prevents me from lifting heavy weights, but I can manage light to medium weights if they are conveniently positioned (3) Walking Pain prevents me walking more than ?? mile (2) Sitting Pain prevents me from sitting more [...] stressful activities (e.g. lifting, vacuuming) (2) * Delaney Reyna RN - 04/30/2024 0930 EDT ATTENTION: This Checklist should be reviewed with the patient, provider, nurse/MA, and diesel technician in the room prior to local [...] chart [Verified] Consented procedure matches scheduled procedure. Thermal RFA parameters: Temp (Celcius): 80 Time (Seconds): 150 xxxxxxxxxxxxxxxxxx xxxxxxxxxxxxxxxxxxxx xxxxxxxxxxxxxxxxxxxx Location Sensory: 50 Hz Motor: 2 Hz Rt L5 Razia Negative xxxxxxxxxxxxxxxxxxx xxxxxxxxxxxxxxxxxxxxx xxxxxxxxxxxxxxxxxxxxx Rt L4 Razia Negative xxxxxxxxxxxxxxxxxxx xxxxxxxxxxxxxxxxxxxxx xxxxxxxxxxxxxxxxxxxxx Rt L3 Razia Negative xxxxxxxxxxxxxxxxxxx xxxxxxxxxxxxxxxxxxxxx xxxxxxxxxxxxxxxxxxxxx Lt L5 Razia Negative xxxxxxxxxxxxxxxxxxx xxxxxxxxxxxxxxxxxxxxx xxxxxxxxxxxxxxxxxxxxx Lt L4 Razia Negative xxxxxxxxxxxxxxxxxxx xxxxxxxxxxxxxxxxxxxxx xxxxxxxxxxxxxxxxxxxxx Lt L3 Razia Negative xxxxxxxxxxxxxxxxxxx xxxxxxxxxxxxxxxxxxxxx xxxxxxxxxxxxxxxxxxxxx No sensory tested. * Catalino Garrett MD - 04/30/2024 0930 EDT Patient Name: Tia Rooney : 1975 Date of Service: 04/30/24 Requesting physician: Plug Sorter: Gerry MEHTA Wire Spooler: None Procedure: Therapeutic lumbar radiofrequency ablation at L3L4, L4L5 Interval History: Patient currently denies any progressive weakness, unexplained fever, trauma or unexplained weight loss. There are no recent onset of new associated symptoms such as changes in strength, sensation, or bladder control. See previous notes for description of pain onset, location, course, workup, therapeutic attempts, and associated functional limitations. The patient reports no recent changes in the character, quality, or distribution of the pain. All previous medical records including current medications, anticoagulation status, any signs of current infection, and new imaging were reviewed. Injection History: 04/30/24: lumbar radiofrequency ablation at L3L4, L4L5 2 sets pos diagnostic blocks at these levels Allergies: Allergies Allergen Reactions Adhesive Other (See [...] known recent infections. Physical Exam: Vitals: BP 137/76 (BP Cuff Location: Right arm, BP Patient Position: Sitting, BP Cuff Sizes: Adult,long) Pulse 92 Resp 17 SpO2 100% General: Patient is alert and oriented, no acute distress Lungs: symmetric chest rise, no evidence of labored breathing Skin: clear, warm, dry and intact and no rashes, bruises or petechiae noted Exam otherwise unchanged from prior Assessment/Plan: 1. Spondylosis of 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 myelopathy Proceed with lumbar radiofrequency ablation in regards to chronic back pain. All risks, benefits, and alternatives were thoroughly explained to . Tia Rooney who verbally communicated understanding of the management plan. Follow up: telephone f/u, Procedure: The patient gave informed written consent to proceed with this procedure following a detailed discussion of the risks and benefits associated with lumbar radiofrequency ablation including but not limited to infection, bleeding, intrathecal injection, allergic reaction, further exacerbation of current symptoms, neurological injury, and lack of efficacy. The patient was then placed in prone position, the skin over the lumbosacral area was prepped with chlorhexadine, and the site was marked and draped with sterile towels. Strict sterile technique was maintained throughout the procedure. A timeout was performed with full staff present to identify the patient, verify the procedure being performed, and review allergies Flouroscopy was used to identify the appropriate lumbar anatomy. The skin and subcutaneous tissue were anesthetized with 2% lidocaine. A 10 cm RFA cannula with 10 mm active tip was inserted under fluoroscopic guidance to contact the junction of the superior articulating process and transverse process at the aforementioned levels. Once periostium was contacted, the RFA cannula were advance slightly anterior and cephalad to place the active tips parallel to the targeted nerves. Final needle position was confirmed with biplanar fluoroscopy. Sensory testing was performed at 50 Hz only at locations where it was deemed necessary to adjust placement. Motor testing was performed using 2 Hz and was n egative for lower extremity muscle contraction at all levels up to 2.5 volts. The testing results are documented in the table below. After proper sensory and motor testing was completed, each site was anesthetized with one ml lidocaine 2%. Thermal radiofrequency ablation was then performed at parameters documented After treatment was completed, 1 ml of 0.5% bupivacaine was injected at each site and the needles were withdrawn. 3 RFA cannula were used for this procedure. There was no paresthesia during needle placement and aspiration was negative at all times. The patient tolerated the procedure well and there were no apparent complications. Written and verbal discharge instructions were reviewed with the patient prior to discharge. RFA parameters: Please see additional documentation in this encounter. Fluoroscopic spot images were saved during the procedure. Gerry MEHTA documented in this encounter Plan of Treatment Upcoming Encounters Date Type Department Care Team (Late st Contact Info) Description 09/18/2024 11:00 EST Office Visit [facility] Bariatric Surgery - [place] [address] [place] [address] Allen Thompson PA-C [address] [facility], [address] 5 [place] [address] 10/26/2024 10:45 EST Telemedicine [facility] Neurology - [address] [address] Sulema Nicole, GIULIA 1 [facility], Level 2 [place] [address] documented as of this encounter Visit Diagnoses Diagnosis Spondylosis of 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 myelopathy- Primary documented in this encounter Administered Medications Inactive Administered Medications - up to 3 most recent administrations Medication Order MAR Action Action Date Dose Rate Site BUPivacaine (PF) (MARCAINE) 0.5% injection 4 mL 4 mL, chelsea-neural, NOW X1, 1 dose, On Karen 04/30/24 at 1045, Routine Given by Other 04/30/2024 10:21 EDT 4 mL midazolam (PF) (VERSED) injection 2 mg 2 mg, intramuscular, NOW X1, 1 dose, On Karen 04/30/24 at 1015, Routine Given 04/30/2024 9:47 EDT 2 mg Left Deltoid documented in this encounter Care Teams Cushion Mat Maker Relationship Specialty Start Date End Date Curtis Burns MD [address] [place], [place] [address] PCP - General Emergency Medicine 07/06/22 Juma Herrera MD [address] [place] [facility] [place] [address] 12/08/18 documented as of this encounter
--- OUTSIDE RECORDS SUMMARY | 2024-09-17 09:07 | XMS_ITS | Encounter Summary ---
Author Organization [facility] Address [address] [place] [address] Care Team Providers Care Patient Insurance Clerk Name Role Phone Juma Herrera MD Unavailable Curtis Burns MD Primary Care Provider [phone] Reason for Visit * Reason Onset Date Comments Results 08/06/2023 Encounter Details Date Type Department Care Team (Late st Contact Info) Description 08/06/2023 Telephone [facility] Interventional Pain [address], [place] [phone] Shantelle Gautam RN Results Social History Tobacco [...] Levels: Right L3-4 TFESI Call back number: [phone] Injection History: 07/02/23: lumbar transforaminal epidural steroid [...] Info) Description 09/18/2024 11:00 EST Office Visit [facility] Bariatric Surgery - [place] [address] [place] [address] Allen Thompson PA-C 111 [facility], Level 5 [place] [phone] 10/26/2024 10:45 EST Telemedicine [facility] Neurology - [address] [phone] Sulema Nicole, LEAK HUNTER [address] [place] [address] [address] [place] [phone] documented as of this encounter Visit Diagnoses Not on filedocumented in this encounter Care Teams Patient Insurance Clerk Relationship Specialty Start Date End Date Curtis Burns MD [address] [facility] [address] [place], [place] [address] PCP - General Emergency Medicine 07/06/22 Juma Herrera MD [address] [facility] [place] [address] 12/08/18 documented as of this encounter
--- OUTSIDE RECORDS SUMMARY | 2024-09-17 09:07 | XMS_ITS | Encounter Summary ---
Author Organization [facility] Address [address] [place] [address] Care Team Providers Care Practice Advisor Name Role Phone Juma Herrera MD Unavailable Curtis Burns MD Primary Care Provider [phone] Reason for Visit * Reason Onset Date Comments Appointment Related 05/19/2024 Encounter Details Date Type Department Care Team (Late st Contact Info) Description 05/19/2024 Telephone [facility] Neurology - [place] [address] [place] [phone] Kj Gloria MD PhD 1 [facility] 2 [place] [address] Appointment Related Social History Tobacco [...] encounter Miscellaneous Notes * Telephone Encounter - Molly Stewart - 06/29/2024 0822 EDT Scheduled from recall for Mycharttelevideo 10/26/2024 at 1045AM w Sulema Nicole. * Telephone Encounter - Kizzy Casillas - 06/19/2024 1343 EDT 2nd attempted outreach - LM for Tia to schedule FUR [address] Gloria to Greg Nicole NP. Upon callback, please warm transfer to Candida. (Need to schedule off edited recall) * Telephone Encounter - Candida Lucia - 05/19/2024 0925 EDT LM for Tia to call and schedule a FUR 60 JAYDEN via My Chart Televideo Extended with one of our Medicine Providers. Please warm transfer to Candida when they call call. (Need to schedule off RECALL) documented in this encounter Plan of Treatment Upcoming Encounters Date Type Department Care Team (Late st Contact Info) Description 09/18/2024 11:00 EST Office Visit [facility] Bariatric Surgery - [place] [address] [place], [place] [address] Allen Thompson PA-C 111 [facility], [address] [place] [phone] 10/26/2024 10:45 EST Telemedicine [facility] Neurology - [address] [address] Sulema Nicole, GLASSWARE ENGRAVER [address] [place] [address] [address] [place] [phone] documented as of this encounter Visit Diagnoses Not on filedocumented in this encounter Care Teams Practice Advisor Relationship Specialty Start Date End Date Curtis Burns MD 26 [facility] [address] [place] [address] PCP - General Emergency Medicine 07/06/22 Juma Herrera MD [address] [facility] [place] [address] 12/08/18 documented as of this encounter
--- OUTSIDE RECORDS SUMMARY | 2024-09-17 09:07 | XMS_ITS | Encounter Summary ---
Author Organization [facility] Address [address] [place] [address] Care Team Providers Care Taco Maker Name Role Phone Juma Herrera MD Unavailable Curtis Burns MD Primary Care Provider Reason for Visit * Reason Comments Back Pain Facet injection * Prior Authorization (Routine) - Authorization Not Required Specialty Diagnoses / Procedures [facility] Referred To Contact Pain Medicine Diagnoses Spondylosis without myelopathy or radiculopathy, lumbosacral region L3L4, L4L5 diagnostic facet, PA Pending Procedures NE NJX DX/THER AGT PVRT FACET JT LMBR/SAC 1 LEVEL NE NJX DX/THER AGT PVRT FACET JT LMBR/SAC 2ND LEVEL PAIN CLINIC PROCEDURE [facility] Interventional Pain [address] [facility] [place] [address] Phone: tel: fax: Catalino Garrett MD [address] [place] [phone] Phone: tel: fax: Referral ID Status Reason Start Date Expiration Date Visits Requested Visits Authorized [id number] Authorization Not Required 1 1 Encounter Details Date Type Department Care Team (Latest Contact Info) Description 03/11/2024 13:30 EDT Office Visit [facility] Interventional Pain [address] [place] [address] Catalino Garrett MD [address] [address] Spondylosis of 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 yes Is patient NPO? (Solids since [...] Rooney : 1975 Date of Service: 03/11/24 Electronic Publishing Specialist: Gerry MEHTA Advertising Sales Manager: None Procedure: diagnostic lumbar facet procedure at [...] patient prior to discharge. Gerry MEHTA * Laurie Myrick RN - 03/11/2024 1330 EDT ATTENTION: [...] [facility] Bariatric Surgery - [address] [address] Allen Thompson PA-C 111 [facility] 5 [place] [phone] 10/26/2024 10:45 EST Telemedicine [facility] Neurology - [address] [address] Sulema Nicole NP [address] [place] [address] [address] 2 [place] [address] documented as of this encounter [...] mL documented in this encounter Care Teams Taco Maker Relationship Specialty Start Date End Date Curtis Burns MD 26 [facility] [address] [place] [address] PCP - General Emergency Medicine 07/06/22 Juma Herrera MD [address] [facility] [place] [address] 12/08/18 documented as of this encounter
--- OUTSIDE RECORDS SUMMARY | 2024-09-17 09:07 | XMS_ITS | Encounter Summary ---
Author Organization [facility] Address [address] [place] [address] Care Team Providers Care Last Marker Name Role Phone Juma Herrera MD Unavailable Curtis Burns MD Primary Care Provider [phone] Encounter Details Date Type Department Care Team (Latest Contact Info) Description 03/11/2024 8:08 EDT - 03/11/2024 23:59 EDT Hospital Encounter [facility] Xray [address] [place], [place] [phone] Discharge Disposition: Home or Self Care Social [...] [facility] Bariatric Surgery [facility] [address] [place] [address] Allen Thompson, PA-C 111 [facility] 5 [place] [phone] 10/26/2024 10:45 EST Telemedicine [facility] Neurology - [address] [address] Sulema Nicole NP [address] [place] [address] 2 [place] [phone] documented as of this encounter Procedures Procedure Name Priority Date/Time Associated Diagnosis Comments PAIN CLINIC [place] LUMBAR INJECTION Routine 03/11/2024 13:41 EDT documented in this encounter Results * PAIN CLINIC FL LUMBAR INJECTION (03/11/2024 13:41 EDT) Narrative 03/11/2024 13:42 EDT This is a non-reportable exam. us Catalino Garrett MD IMG OTHER IMAGING ORDERABLES Fin al Result documented in this encounter Visit Diagnoses Not on filedocumented in this encounter Care Teams Last Marker Relationship Specialty Start Date End Date Curtis Burns MD 26 [facility] [address] [place] [address] PCP - General Emergency Medicine 07/06/22 Juma Herrera MD [address] [facility] [place] [phone] 12/08/18 documented as of this encounter
--- OUTSIDE RECORDS SUMMARY | 2024-09-17 09:07 | XMS_ITS | Encounter Summary ---
Author Organization [facility] Address [address] [place] [address] Care Team Providers Care Supervisor Open [employer]earth Stockyard Name Role Phone Juma Herrera MD Unavailable Curtis Burns MD Primary Care Provider [phone] Encounter Details Date Type Department Care Team (Latest Contact Info) Description 11/19/2023 8:57 EDT - 11/19/2023 23:59 EDT Hospital Encounter [facility] Pain Clinic Xray [address] [place], [place] [phone] Discharge Disposition: Home or Self Care Social [...] Date of Assessment Author No 09/05/2015 12:00 hKoa Peñaloza * Because of a physical, mental, [...] Info) Description 09/18/2024 11:00 EST Office Visit [facility] Bariatric Surgery [facility] [address] [place] [address] Allen Thompson, PA-C 111 [facility] 5 [place] [phone] 10/26/2024 10:45 EST Telemedicine [facility] Neurology - [address] [address] Sulema Nicole NP [address] [place] [address] 2 [place] [phone] documented as of this encounter Procedures Procedure Name Priority Date/Time Associated Diagnosis Comments PAIN CLINIC [place] SACROILIAC JOINT INJECTION Routine 11/19/2023 10:51 EDT documented in this encounter Results * PAIN CLINIC FL SACROILIAC JOINT INJECTION (11/19/2023 10:51 EDT) Narrative 11/19/2023 10:51 EDT This is a non-reportable exam. us Catalino Garrett MD IMG OTHER IMAGING ORDERABLES Fin al Result documented in this encounter Visit Diagnoses Not on filedocumented in this encounter Care Teams Supervisor Open Hearth Stockyard Relationship Specialty Start Date End Date Curtis Burns MD 26 [facility] [address] [place] [address] PCP - General Emergency Medicine 07/06/22 Juma Herrera MD [address] [facility] [place] [address] 12/08/18 documented as of this encounter
--- OUTSIDE RECORDS SUMMARY | 2024-09-17 09:07 | XMS_ITS | Encounter Summary ---
Author Organization [facility] Address [address] [place] [address] Care Team Providers Care Logistics Solution Manager Name Role Phone Juma Herrera MD Unavailable Curtis Burns MD Primary Care Provider [phone] Encounter Details Date Type Department Care Team (Late st Contact Info) Description 08/01/2023 Telephone [facility] Neurology - S [place] [address] [place] [phone] Kj Gloria MD PhD [address] [place] [address] Level 2 [place] [phone] Social History Tobacco Use Types Packs/Day Years [...] Refills Last Filled Start Date End Date erenumab-aooe (AIMOVIG AUTOINJECTOR) 140 mg/mL auto-injector Inject 1 mL into the skin every 28 days. 3 mL 3 08/02/2023 08/06/2024 documented in this encounter Miscellaneous Notes * Telephone Encounter - Shana Ordoñez - 08/01/2023 1641 EST Medication Refill Request Medication: Aimovig Patient needs medication by: 08/09 Scheduled outreach date: 08/01 Pharmacy: [facility] ([facility] [address] [place] [address] appt: Visit date not found documented in this encounter Plan of Treatment Upcoming Encounters Date Type Department Care Team ([facility] st Contact Info) Description 09/18/2024 11:00 EST Office Visit [facility] Bariatric Surgery - [place] [address] [place] [address] Allen Thompson PA-C [address] [place] [address], [facility] 5 [place] [address] 10/26/2024 10:45 EST Telemedicine [facility] Neurology - S [address] [address] Sulema Nicole, RESTAURANT LINE SERVER 1 [facility], Level 2 [place] [phone] documented as of this encounter Visit Diagnoses Not on filedocumented in this encounter Discontinued Medications Medication Sig Discontinue Reason Start Date End Da te erenumab-aooe (AIMOVIG AUTOINJECTOR) 140 mg/mL auto-injector Inject 1 mL into the skin every 28 days. Reorder 05/02/2023 08/02/2023 documented as of this encounter Care Teams Logistics Solution Manager Relationship Specialty Start Date End Date Curtis Burns MD 26 [facility] [address] [place] [address] PCP - General Emergency Medicine 07/06/22 Juma Herrera MD [address] [facility] [place] [address] 12/08/18 documented as of this encounter
--- OUTSIDE RECORDS SUMMARY | 2024-09-17 09:07 | XMS_ITS | Encounter Summary ---
Author Organization [facility] Address [address] [place] [address] Care Team Providers Care Sterile Processing Manager Name Role Phone Juma Herrera MD Unavailable Curtis Burns MD Primary Care Provider [phone] Reason for Visit * Reason Comments Neck Pain YSABEL * Prior Authorization (Routine) - Authorization Not Required Specialty Diagnoses / Procedures [facility] By [facility] Referred To Contact Pain Medicine Diagnoses Sacroiliitis, not elsewhere classified (HCC-CMS) Cervical epidural steroid injections at C7-T1 Procedures WA NJX DX/THER SBST INTRLMNR CRV/THRC W/IMG GDN PAIN CLINIC PROCEDURE [facility] Interventional Pain [address] [place] [address] Phone: tel: fax: Catalino Garrett MD [address] [place], [place] [address]ey [facility] [address] [place] [address] Phone: tel: fax: Referral ID Status Reason Start Date Expiration Date Visits Requested Visits Authorized [id number] Authorization Not Required 1 1 Encounter Details Date Type Department Care Team (Latest Contact Info) Description 02/07/2024 13:[address] [facility] Interventional Pain [address] [place] [address] Catalino Garrett MD [address] [facility] [address] [place] [address] Radiculopathy, cervical region (Primary Dx) [...] of Assessment Author No 09/05/2015 12:00 Khoa Peñaolza * Are you blind or do you [...] 02/07/2024 13:00 EDT [facility] [address] [address] Patient Instructions You have had your cervical [...] Management Rooming Note Does patient have a Ensemble Member? yes Is patient NPO? (Solids since midnight [...] Complaint Patient presents with Neck Pain YSABEL Geography Department Chair: Dr. Garrett Procedure: Cervical epidural steroid injections [...] [facility] Bariatric Surgery [place] [address] [place], [place] [address] Allen Thompson PA-C 111 [facility] Level 5 [place] [phone] 10/26/2024 10:45 EST Telemedicine [facility] Neurology - S [place] 1 [place] [address] Sulema Nicole NP 1 [facility], Level 2 [place] [phone] documented as of this encounter Visit Diagnoses [...] mL documented in this encounter Care Teams Sterile Processing Manager Relationship Specialty Start Date End Date Curtis Burns MD 26 [facility] [address] [place] [address] PCP - General Emergency Medicine 07/06/22 Juma Herrera MD [address] [facility] [place] [address] 12/08/18 documented as of this encounter
--- OUTSIDE RECORDS SUMMARY | 2024-09-17 09:07 | XMS_ITS | Encounter Summary ---
Author Organization [facility] Address [address] [place] [address] Care Team Providers Care Juvenile Officer Name Role Phone Juma Herrera MD Unavailable Curtis Burns MD Primary Care Provider [phone] Reason for Visit * Reason Comments Back Pain Bilateral * Prior Authorization (Routine) - Authorization Not Required Specialty Diagnoses / Procedures [facility] Referred To Contact Pain Medicine Diagnoses Radiculopathy, lumbar region bilateral SI joint injection / pa pending Procedures AL INJECT SI JOINT ARTHRGRPHY&/ANES/STEROI D W/PARMINDER PAIN CLINIC PROCEDURE [facility] Interventional Pain [address] [place] [address] Phone: tel: fax: Catalino Garrett MD [address] [place] [address] Phone: tel: fax: Referral ID Status Reason Start Date Expiration Date Visits Requested Visits Authorized [id number] Authorization Not Required 1 1 Encounter Details Date Type Department Care Team (Latest Contact Info) Description 11/19/2023 11:00 EDT Office Visit [facility] Interventional Pain [address] [place] [address] Catalino Garrett MD 62 [facility] [address] [place] [address] Sacroiliitis (HCC-[facility]) (Primary Dx) Social History Tobacco Use Types [...] * Patient Instructions* Albina Cain RN - 11/19/2023 11:00 EDT [facility] [address] [place] [address] [place] [address] Patient Instructions You have had your bilateral [...] Management Rooming Note Does patient have a Stars Analytical Lead? yes Is patient NPO? (Solids since midnight [...] Rooney : 1975 Date of Service: 11/19/2023 Broacher: Catalino Garrett MD Lifeguard: None Procedure: Diagnostic and Therapeutic sacroiliac joint [...] with painful active ROM Assessment: 1. Sacroiliitis ([facility]) Plan: Ms. Tia Rooney is a 48 [...] reviewed with the patient, provider, nurse/MA, and certified pharmacy technician in the room prior to local [...] Info) Description 09/18/2024 11:00 EST Office Visit [facility] Bariatric Surgery [facility] [address] [place], [place] [phone] Allen Thompson PA-C [address] [place] [address], Level 5 [place] [phone] 10/26/2024 10:45 EST Telemedicine [facility] Neurology - [facility] 1 [place] [address] Sulema Nicole NP [address] [place] [address] Level 2 [place] [phone] documented as of this encounter Visit Diagnoses Diagnosis Sacroiliitis ([facility])- Primary Sacroiliitis, not elsewhere classified documented in [...] mL documented in this encounter Care Teams Juvenile Officer Relationship Specialty Start Date End Date Curtis Burns MD 26 [facility] [address] [place] [address] PCP - General Emergency Medicine 07/06/22 Juma Herrera MD [address] [facility] [place] [phone] 12/08/18 documented as of this encounter
--- OUTSIDE RECORDS SUMMARY | 2024-09-17 09:07 | XMS_ITS | Encounter Summary ---
Author Organization [facility] Address [address] [place] [address] Care Team Providers Care Neuroscience Specialist Name Role Phone Juma Herrera MD Unavailable Curtis Burns MD Primary Care Provider [phone] Reason for Visit * Reason Onset Date Comments Medications Refill 08/06/2024 Aimovig refil ls needed Encounter Details Date Type Department Care Team (Late st Contact Info) Description 08/06/2024 Telephone [facility] Neurology - [place] [address] [place] [phone] Kj Gloria MD PhD 1 [facility] 2 [place] [address] Medications Refill (Aimovig refills needed) Social History Tobacco Use Types Packs/Day Years [...] Yes 09/15/2018 7:52 EST Nina Hernandez documented in this encounter Ordered Prescriptions Prescription Sig Dispense Quantity Refills Last Filled Start Date End Date erenumab-aooe (AIMOVIG AUTOINJECTOR) 140 mg/mL auto-injector Inject 1 mL into the skin every 28 days. 3 mL 08/06/2024 documented in this encounter Miscellaneous Notes * Telephone Encounter - Ila Joseph - 08/06/2024 1502 EST Medication Refill Request Medication: Aimovig Patient needs medication by: 08/07 Scheduled outreach date: 08/06 Pharmacy: [facility] ([facility] [address] appt: 10/26/2024 documented in this encounter Plan of Treatment Upcoming Encounters Date Type Department Care Team (Late st Contact Info) Description 09/18/2024 11:00 EST Office Visit [facility] Bariatric Surgery [facility] [address] [place] [address] Allen Thompson PA-C [address] [place] [address], [facility], Level [address] [place] [address] 10/26/2024 10:45 EST Telemedicine [facility] Neurology - [place] 1 [place], [place] [phone] Sulema Nicole, SPECIAL EDUCATION CURRICULUM SPECIALIST 1 [facility], Level [address] [place] [phone] documented as of this encounter Visit Diagnoses Not on filedocumented in this encounter Discontinued Medications Medication Sig Discontinue Reason Start Date End Da te erenumab-aooe (AIMOVIG AUTOINJECTOR) 140 mg/mL auto-injector Inject 1 mL into the skin every 28 days. Reorder 08/02/2023 08/06/2024 documented as of this encounter Care Teams Neuroscience Specialist Relationship Specialty Start Date End Date Curtis Burns MD 26 [facility] [address] [place] [address] PCP - General Emergency Medicine 07/06/22 Juma Herrera MD 2450 [address] [facility] [place] [phone] 12/08/18 documented as of this encounter
--- OUTSIDE RECORDS SUMMARY | 2024-09-17 09:08 | XMS_ITS | Encounter Summary ---
Author Organization [facility] Address [address] [place] [address] Care Team Providers Care Crayon Sorting Machine Feeder Name Role Phone Juma Herrera MD Unavailable Curtis Burns MD Primary Care Provider Reason for Visit * Reason Comments Pain Patient is here for pain in butt, hips and legs Encounter Details Date Type Department Care Team (Latest Contact Info) Description 05/21/2023 10:30 EDT Office Visit [facility] Interventional Pain 62 [facility] [place] [address] Catalino Garrett MD [address] [facility] [address] [place] [address] Lumbar radiculopathy (Primary Dx) Social [...] of Assessment Author No 09/05/2015 12:00 NATALY HernandezKhoa bruce * Do you have serious difficulty [...] Arthritis ??? Back pain ??? Bipolar disorder ([facility]) ??? Breathing problem ??? Depression ??? Diabetes mellitus (HCC-CMS) ??? Drug abuse (HCC-CMS) ([facility]) ??? Environmental allergies ??? Eye problem ??? Generalized headaches ??? Headache(784.0) ??? Heart disease ??? History of substance abuse ([facility]) ([facility]) ??? Hypertension ??? Kidney disease ??? [...] Info) Description 09/18/2024 11:00 EST Office Visit [facility] Bariatric Surgery - [address] [address] Allen Thompson PA-C 111 [facility] 5 [place] [phone] 10/26/2024 10:45 EST Telemedicine [facility] Neurology - [address] [address] Sulema Nicole, GIULIA 1 [facility] Level 2 [place] [phone] documented as of this encounter Visit Diagnoses Diagnosis Lumbar radiculopathy- Primary Thoracic or lumbosacral neuritis or radiculitis, unspecified documented in this encounter Care Teams Crayon Sorting Machine Feeder Relationship Specialty Start Date End Date Curtis Burns MD 26 [facility] [address] [place] [address] PCP - General Emergency Medicine 07/06/22 Juma Herrera MD [address] [place] [address] 12/08/18 documented as of this encounter
--- OUTSIDE RECORDS SUMMARY | 2024-09-17 09:08 | XMS_ITS | Encounter Summary ---
Author Organization [facility] Address [address] [place] [address] Care Team Providers Care Field Marketing Lead Name Role Phone Juma Herrera MD Unavailable Curtis Burns MD Primary Care Provider [phone] Reason for Visit * Reason Onset Date Comments Appointment Related 05/13/2023 Encounter Details Date Type Department Care Team (Late st Contact Info) Description 05/13/2023 Telephone [facility] Neurology - S [place] [address] [place] [phone] Kj Gloria MD PhD 1 [facility] 2 [place] [address] Appointment Related Social History Tobacco [...] Info) Description 09/18/2024 11:00 EST Office Visit [facility] Bariatric Surgery - [place] [address] [place] [address] Allen Thompson PA-C [address] [place] [address], Level 5 [place] [phone] 10/26/2024 10:45 EST Telemedicine [facility] Neurology - S [address] [phone] Sulema Nicole, DOCUMENT DESIGN SPECIALIST 1 [facility], Level [address] [place] [phone] documented as of this encounter Visit Diagnoses Not on filedocumented in this encounter Care Teams Field Marketing Lead Relationship Specialty Start Date End Date Curtis Burns MD 26 [facility] [address] [place], [place] [phone] PCP - General Emergency Medicine 07/06/22 Juma Herrera MD [address] [facility] [place] [address] 12/08/18 documented as of this encounter
--- OUTSIDE RECORDS SUMMARY | 2024-09-17 09:08 | XMS_ITS | Encounter Summary ---
Author Organization [facility] Address [address] [place] [address] Care Team Providers Care Director Of Golf Name Role Phone Juma Herrera MD Unavailable Curtis Burns MD Primary Care Provider [phone] Reason for Visit * Reason Onset Date Comments Results 12/17/2022 Encounter Details Date Type Department Care Team (Late st Contact Info) Description 12/17/2022 Telephone [facility] Interventional Pain [address] [place] [address] Catalino Garrett MD 62 [facility] [address] [place] [address] Results Social History Tobacco Use [...] Description 09/18/2024 11:00 EST Office Visit [facility] Bariatric Surgery - [place] [address] [place], [place] [address] Allen Thompson PA-C 111 [facility], Level 5 [place] [phone] 10/26/2024 10:45 EST Telemedicine [facility] Neurology - [address] [address] Sulema Nicole, METALLURGY LABORATORY TECHNICIAN [address] [place] [address] Level [address] [place] [phone] documented as of this encounter Visit Diagnoses Not on filedocumented in this encounter Care Teams Director Of Golf Relationship Specialty Start Date End Date Curtis Burns MD 26 [facility] [address] [place] [address] PCP - General Emergency Medicine 07/06/22 Juma Herrera MD 24[address] [facility] [place] [address] 12/08/18 documented as of this encounter
--- OUTSIDE RECORDS SUMMARY | 2024-09-17 09:08 | XMS_ITS | Encounter Summary ---
Author Organization [facility] Address [address] [place] [address] Care Team Providers Care President And Ceo Name Role Phone Juma Herrera MD Unavailable Curtis Burns MD Primary Care Provider [phone] Encounter Details Date Type Department Care Team (Latest Contact Info) Description 05/02/2023 7:38 EDT - 05/02/2023 23:59 EDT Hospital Encounter [facility] Pain Clinic Xray [address] [place], [place] [phone] Discharge Disposition: Home or Self Care Social [...] needed for Nausea 60 Tab 0 08/31/2015 erenumab-aooe (AIMOVIG AUTOINJECTOR) 140 mg/mL auto-injector Inject 1 mL into the skin every 28 days. 3 mL 05/02/2023 3 omeprazole (PRILOSEC) 40 mg capsule Take 1 Capsule by mouth daily. 90 Capsule 3 09/21/2022 4 SUMAtriptan Succinate 6 mg/0.5 mL cartridge [...] Info) Description 09/18/2024 11:00 EST Office Visit [facility] Bariatric Surgery [facility] [address] [place] [address] Allen Thompson, PA-C 111 [facility] 5 [place] [phone] 10/26/2024 10:45 EST Telemedicine [facility] Neurology - [address] [phone] Sulema Nicole NP [address] [place] [address] Level 2 [place] [phone] documented as of this encounter Procedures Procedure Name Priority Date/Time Associated Diagnosis Comments PAIN CLINIC [place] CERVICAL INJECTION Routine 05/02/2023 10:33 EDT documented in this encounter Results * PAIN CLINIC [place] CERVICAL INJECTION (05/02/2023 10:33 EDT) Narrative 05/02/2023 10:33 EDT This is a non-reportable exam. us Catalino Garrett MD IMG OTHER IMAGING ORDERABLES Fin al Result documented in this encounter Visit Diagnoses Not on filedocumented in this encounter Care Teams President And Ceo Relationship Specialty Start Date End Date Curtis Burns MD 26 [facility] [address] [place] [address] PCP - General Emergency Medicine 07/06/22 Juma Herrera MD [address] [facility] [place] [address] 12/08/18 documented as of this encounter
--- OUTSIDE RECORDS SUMMARY | 2024-09-17 09:08 | XMS_ITS | Encounter Summary ---
Author Organization [facility] Address [address] [place] [address] Care Team Providers Care Stock Plan Administrator Name Role Phone Juma Herrera MD Unavailable Curtis Burns MD Primary Care Provider [phone] Reason for Referral * Radiology Services (Routine/Next Available) - Authorization Not Required Specialty Diagnoses / Procedures Referred By Contac t Referred To Contact Diagnoses Back pain, unspecified back location, unspecified back pain laterality, unspecified chronicity Procedures XR LUMBAR SPINE BENDING VIEWS, 2 OR 3 VIEWS Kj Child MD Phone: tel: fax: [facility] Referral ID Status Reason Start Date Expiration Date Visits Requested Visits Authorized [id number] Authorization Not Required 12/10/2022 1 1 Encounter Details Date Type Department Care Team (Late st Contact Info) Description 12/10/2022 Orders Only [facility] Spine Program - [address] [place] [address] Kj Child MD [address] [place] [address] [place] [address] Back pain, unspecified back location, [...] Description 09/18/2024 11:00 EST Office Visit [facility] Bariatric Surgery - [place] [address] [place] [address] Allen Thompson PA-C [address] [place] [address], Level 5 [place] [address] 10/26/2024 10:45 EST Telemedicine [facility] Neurology - S [address] [address] Sulema Nicole NP 1 [facility], Level 2 [place] [address] documented as of this encounter Results * [...] with extension. Kj Child MD IMG DIAGNOSTIC IMAGING O RDERABLES Final Result documented in this encounter Visit Diagnoses Diagnosis Back pain, unspecified back location, unspecified back pain laterality, unspecified chronicity- Primary Back pain, unspecified back location, unspecified back pain laterality, unspecified chronicity documented in this encounter Orders Equipment Count Last Ordered Date First Orde red Date GENERIC ORTHO VENDOR DME 1 12/11/2022 documented in this encounter Care Teams Stock Plan Administrator Relationship Specialty Start Date End Date Curtis Burns MD 26 [facility] [address] [place] [address] PCP - General Emergency Medicine 07/06/22 Juma Herrera MD [address] [place] [phone] 12/08/18 documented as of this encounter
--- OUTSIDE RECORDS SUMMARY | 2024-09-17 09:08 | XMS_ITS | Encounter Summary ---
Author Organization [facility] Address [address] [place] [address] Care Team Providers Care Revenue Agent Name Role Phone Juma Herrera MD Unavailable Curtis Burns MD Primary Care Provider [phone] Reason for Visit * Reason Onset Date Comments Appointment Related 05/27/2023 Encounter Details Date Type Department Care Team (Late st Contact Info) Description 05/27/2023 Telephone [facility] Neurology - S [place] [address] [place] [phone] Kj Gloria MD PhD 1 [facility] 2 [place] [address] Appointment Related Social History Tobacco [...] * Telephone Encounter - Loretta Degroot - 05/27/2023 1000 EDT Tia called in [...] Info) Description 09/18/2024 11:00 EST Office Visit [facility] Bariatric Surgery - [place] [address] [place] [address] Allen Thompson PA-C 111 [facility] 5 [place] [address] 10/26/2024 10:45 EST Telemedicine [facility] Neurology - [address] [phone] Sulema Nicole, GIULIA [address] [place] [address] 2 [place] [address] documented as of this encounter Visit Diagnoses Not on filedocumented in this encounter Care Teams Revenue Agent Relationship Specialty Start Date End Date Curtis Burns MD 26 [facility] [address] [place] [address] PCP - General Emergency Medicine 07/06/22 Juma Herrera MD 2450 S [facility] [place] [address] 12/08/18 documented as of this encounter
--- OUTSIDE RECORDS SUMMARY | 2024-09-17 09:08 | XMS_ITS | Encounter Summary ---
Author Organization [facility] Address [address] [place] [address] Care Team Providers Care Barber Apprentice Name Role Phone Juma Herrera MD Unavailable Curtis Burns MD Primary Care Provider [phone] Encounter Details Date Type Department Care Team (Late st Contact Info) Description 04/19/2023 Telephone [facility] Interventional Pain [address] [id number] Albina Jain, RN [address] [id number] Social History Tobacco Use Types Packs/Day Years [...] the following items: -Patient must have a tour driver -Patient needs to arrive 45 minutes [...] Yes Patient is provided clinic phone number [phone] for any additional questions documented in this encounter Plan of Treatment Upcoming Encounters Date Type Department Care Team (Late st Contact Info) Description 09/18/2024 11:00 EST Office Visit [facility] Bariatric Surgery - [place] [address] Allen Thompson PA-C 111 [facility], [facility], Level 5 [place] [phone] 10/26/2024 10:45 EST Telemedicine [facility] Neurology - S [address] [phone] Sulema Nicole, ICING MACHINE OPERATOR 1 [facility], Level 2 [place] [phone] documented as of this encounter Visit Diagnoses Not on filedocumented in this encounter Care Teams Barber Apprentice Relationship Specialty Start Date End Date Curtis Burns MD 26 [facility] [address] [place], [place] [address] PCP - General Emergency Medicine 07/06/22 Juma Herrera MD [address] [facility] [place] [address] 12/08/18 documented as of this encounter
--- OUTSIDE RECORDS SUMMARY | 2024-09-17 09:08 | XMS_ITS | Encounter Summary ---
Author Organization [facility] Address [address] [place] [address] Care Team Providers Care Core Checker Name Role Phone Juma Herrera MD Unavailable Curtis Burns MD Primary Care Provider [phone] Reason for Referral * Prior Authorization (Routine/Next Available) - Authorization Not Required Specialty Diagnoses / Procedures Referred By Wili mireles Referred To Contact Orthopedic Surgery Diagnoses Chronic right shoulder pain Jun Balbuena MD Phone: tel: fax: [facility] Sports Medicine Program - [place] [address] Phone: tel: fax: Referral ID Status Reason Start Date Expiration Date Visits Requested Visits Authorized [id number] Authorization Not Required Specialty Services Required 3 1 1 Question Answer Reason for Request: RIGHT SHOULDER USG SA INJECTION Comments The purpose of this request is to inform precertification staff that the requested service needs to be reviewed for prior-authorization. Encounter Details Date Type Department Care Team (Late st Contact Info) Description 01/09/2023 Orders Only [facility] Sports Medicine Program - Scout [facility] [place] [address] Jun Balbuena MD [address] [place] [address] Chronic right shoulder pain (Primary Dx) [...] Info) Description 09/18/2024 11:00 EST Office Visit [facility] Bariatric Surgery - [place] [address] [place], [place] [phone] Allen Thompson PA-C [address] [place] [address] Level 5 [place] [phone] 10/26/2024 10:45 EST Telemedicine [facility] Neurology - S [place] 1 [place], [place] [address] Sulema Nicole AUTOMOTIVE ALIGNMENT SPECIALIST 1 [facility], Level 2 [place] [address] Scheduled Referrals Name Type Priority Associated Diagnoses Order Schedule AMB CONS/FOLLOW UP IN CLINIC PROCEDURES PRIOR AUTHORIZATION REQUEST Outpatient Referral Routine/Next Available Chronic right shoulder pain Expected: 02/08/2023 (Approximate), Expires: 01/10/2024 documented as of this encounter Results * POC MSK US SHOULDER (02/08/2023 16:11 EDT) Narrative [facility] POINT OF CARE - 02/08/2023 16:11 EDT This is a non-reportable exam. Jun Balbuena MD IMG US POC ORDERABLES Rhoda l Result [facility] POINT OF CARE documented in this encounter Visit Diagnoses Diagnosis Chronic right shoulder pain- Primary Pain in joint, shoulder region Chronic right shoulder pain Pain in joint, shoulder region documented in this encounter Care Teams Core Checker Relationship Specialty Start Date End Date Curtis Burns MD [address] [place], [place] [address] PCP - General Emergency Medicine 07/06/22 Juma Herrera MD [address] [place] [address] 12/08/18 documented as of this encounter
--- OUTSIDE RECORDS SUMMARY | 2024-09-17 09:08 | XMS_ITS | Encounter Summary ---
Author Organization [facility] Address [address] [place] [address] Care Team Providers Care Wardrobe Technician Name Role Phone Juma Herrera MD Unavailable Curtis Burns MD Primary Care Provider [phone] Encounter Details Date Type Department Care Team (Latest Contact Info) Description 01/08/2023 7:44 EDT - 01/08/2023 23:59 EDT Hospital Encounter [facility] Xray [address] [place], [place] [phone] Discharge Disposition: Home or Self Care Social [...] of Assessment Author No 09/05/2015 12:00 EST Khao Hernandez * Do you have serious difficulty [...] every 28 days. 3 mL 1 11/20/2022 3 omeprazole (PRILOSEC) 40 mg capsule Take [...] Visit [facility] Bariatric Surgery [facility] [address] [place] [address] Allen Thompson, PA-C 111 [facility] 5 [place] [phone] 10/26/2024 10:45 EST Telemedicine [facility] Neurology - [address] [address] Sulema Nicole NP [address] [place] [address] Level 2 [place] [phone] documented as of this encounter Procedures Procedure Name Priority Date/Time Associated Diagnosis Comments [facility] [place] CERVICAL INJECTION Routine 01/08/2023 11:05 EDT documented in this encounter Results * PA[facility] CL[facility]IC [place] CERVICAL INJECTION (01/08/2023 11:05 EDT) Narrative 01/08/2023 11:05 EDT This is a non-reportable exam. us Catalino Garrett MD IMG OTHER IMAGING ORDERABLES Fin al Result documented in this encounter Visit Diagnoses Not on filedocumented in this encounter Care Teams Wardrobe Technician Relationship Specialty Start Date End Date Curtis Burns MD 26 [facility] [address] [place] [address] PCP - General Emergency Medicine 07/06/22 Juma Herrera MD 24[address] [facility] [place] [address] 12/08/18 documented as of this encounter
--- OUTSIDE RECORDS SUMMARY | 2024-09-17 09:08 | XMS_ITS | Encounter Summary ---
Author Organization [facility] Address [address] [place] [address] Care Team Providers Care Prefabricator Name Role Phone Juma Herrera MD Unavailable Curtis Burns MD Primary Care Provider Reason for Visit * Reason Onset Date Comments Paperwork request 01/22/2023 Encounter Details Date Type Department Care Team (Late st Contact Info) Description 01/22/2023 Telephone [facility] Spine Program - [address] [address] Kj Child MD 192 [facility] [place] [address] Paperwork request Social History Tobacco [...] request Summary: Sent 12/11/22 note and called Maryse And confirmed that this note was all that was missing.Provided them a call back # incase the fax didn't go through. Or if additional info is needed. Pretty Benavidez 02/06/2023 16:05 * Telephone Encounter - Pretty Benavidez - 02/06/2023 1555 EDT Reason for Call: Paperwork request Summary: Pt called back very upset stated that MARYSE received everything but the signed note for12/11/22 stating why she needs the brace Author is faxing note to provided fax # attempted to reachout to PROMIS for clarification on what documentation is missing. Appointment Offered? N/A Pretty Benavidez 02/06/2023 15:55 * Telephone Encounter - Loida Rojo - 02/05/[address] Child notes re-faxed to [facility] at [phone]. * Telephone Encounter - Miguel Crandall MA - 01/25/2023 1615 EDT Paperwork signed by Dr Child and faxed to [facility] * Telephone Encounter - Angely Box - 01/24/2023 1059 EDT Deann from [facility] Is calling to verify that we received the form to be completed which was faxed to us on 01-15, Deann states they need the form completed and faxed back along with supporting documentation for pt regarding back brace. Please confirm with Deann at ph # [phone] Pls fax all info to fx # [phone] * Telephone Encounter - Bear Dumont - 01/22/2023 0840 EDT Reason for Call: Paperwork request Summary: Patient calling in to inform she has been to [facility] for her back brace and they have [...] Info) Description 09/18/2024 11:00 EST Office Visit [facility] Bariatric Surgery - [place] [address] [place] [address] Allen Thompson PA-C [address] [place] [address], [facility] 5 [place] [address] 10/26/2024 10:45 EST Telemedicine [facility] Neurology - [place] [address] [place] [phone] Sulema Nicole, TRANSIT MIXER DRIVER 1 [facility], Level 2 [place] [phone] documented as of this encounter Visit Diagnoses Not on filedocumented in this encounter Care Teams Prefabricator Relationship Specialty Start Date End Date Curtis Burns MD 26 [facility] [address] [place], [place] [address] PCP - General Emergency Medicine 07/06/22 Juma Herrera MD [address] [facility] [place] [address] 12/08/18 documented as of this encounter
--- OUTSIDE RECORDS SUMMARY | 2024-09-17 09:08 | XMS_ITS | Encounter Summary ---
Author Organization [facility] Address [address] [place] [address] Care Team Providers Care Access Clinician Name Role Phone Juma Herrera MD Unavailable Curtis Burns MD Primary Care Provider [phone] Encounter Details Date Type Department Care Team (Latest Contact Info) Description 02/08/2023 11:30 EDT Ancillary Procedure [facility] Sports Medicine Program [place] [address] Chronic right shoulder pain Social [...] Info) Description 09/18/2024 11:00 EST Office Visit [facility] Bariatric Surgery [facility] 353 [place] [address] Allen Thompson PA-C 111 [facility] 5 [place] [phone] 10/26/2024 10:45 EST Telemedicine [facility] Neurology - [facility] 1 [place] [address] Sulema Nicole NP [address] [place] [address] 2 [place] [phone] documented as of this encounter Procedures Procedure Name Priority Date/Time Associated Diagnosis Comments POC MSK US SHOULDER Routine 02/08/2023 1 6:11 EDT Chronic right shoulder pain documented in this encounter Results * POC MSK US SHOULDER (02/08/2023 16:11 EDT) Narrative [facility] POINT OF CARE - 02/08/2023 16:11 EDT This is a non-reportable exam. Jun Balbuena MD [facility] US POC ORDERABLES Rhoda delong Result [facility] POINT OF CARE documented in this encounter Visit Diagnoses Diagnosis Chronic right shoulder pain Pain in joint, shoulder region documented in this encounter Care Teams Access Clinician Relationship Specialty Start Date End Date Curtis Burns MD 26 [facility] [address] [place] [address] PCP - General Emergency Medicine 07/06/22 Juma Herrera MD [address] [facility] [place] [address] 12/08/18 documented as of this encounter
--- OUTSIDE RECORDS SUMMARY | 2024-09-17 09:08 | XMS_ITS | Encounter Summary ---
Author Organization [facility] Address [address] [place] [address] Care Team Providers Care Reed Fixer Name Role Phone Juma Herrera MD Unavailable Curtis Burns MD Primary Care Provider [phone] Encounter Details Date Type Department Care Team (Late st Contact Info) Description 05/02/2023 Orders Only [facility] Neurology - [place] [address] [place] [phone] Kj Gloria MD PhD [address] [place] [address] Level 2 [place] [phone] Social History Tobacco Use Types Packs/Day Years [...] Info) Description 09/18/2024 11:00 EST Office Visit [facility] Bariatric Surgery [facility] [address] [place] [address] Allen Thompson, PALizettC 111 [facility] 5 [place] [phone] 10/26/2024 10:45 EST Telemedicine [facility] Neurology - [address] [address] Sulema Nicole NP [address] [place] [address] 2 [place] [phone] documented as of this encounter Visit Diagnoses Not on filedocumented in this encounter Discontinued Medications Medication Sig Discontinue Reason Start Date End Da te erenumab-aooe (AIMOVIG AUTOINJECTOR) 140 mg/mL auto-injector Inject 1 mL into the skin every 28 days. Reorder 11/20/2022 05/02/2023 documented as of this encounter Care Teams Reed Fixer Relationship Specialty Start Date End Date Curtis Burns MD 26 [facility] [address] [place] [address] PCP - General Emergency Medicine 07/06/22 Juma Herrera MD [address] [facility] [address] 12/08/18 documented as of this encounter
--- OUTSIDE RECORDS SUMMARY | 2024-09-17 09:08 | XMS_ITS | Encounter Summary ---
Author Organization [facility] Address [address] [place] [address] Care Team Providers Care Adult Care Provider Name Role Phone Juma Herrera MD Unavailable Curtis Burns MD Primary Care Provider [phone] Encounter Details Date Type Department Care Team (Latest Contact Info) Description 07/08/2023 Specialty Pharmacy [facility] 1 [place], [place] [phone] Jj Verduzco [facility] Refill Coordination Outreach (1 time occurrence) for [...] EST Nina Hernandez documented in this encounter Progress Notes * Hortencia Rehman - 07/08/2023 1022 EST Specialty Pharmacy Documentation Medication: [facility]: [facility] Reason for Encounter: Documentation Notes: Outreach moved incorrectly Follow up date: 07/30/2023 Follow up reason: Outreach documented in this encounter Plan of Treatment Upcoming Encounters Date Type Department Care Team (Late st Contact Info) Description 09/18/2024 11:00 EST Office Visit [facility] Bariatric Surgery [facility] [address] [place], [place] [address] Allen Thompson PA-C [address] [place] [address] 5 [place] [phone] 10/26/2024 10:45 EST Telemedicine [facility] Neurology - [address] [address] Sulema Nicole NP [address] [place] [address] Level 2 [place] [address] documented as of this encounter Visit Diagnoses Not on filedocumented in this encounter Care Teams Adult Care Provider Relationship Specialty Start Date End Date Curtis Burns MD 26 [facility] [address] [place] [address] PCP - General Emergency Medicine 07/06/22 Juma Herrera MD [address] [facility] [place] [address] 12/08/18 documented as of this encounter
--- OUTSIDE RECORDS SUMMARY | 2024-09-17 09:08 | XMS_ITS | Encounter Summary ---
Author Organization [facility] Address [address] [place] [address] Care Team Providers Care Patient Flow Coordinator Name Role Phone Juma Herrera MD Unavailable Curtis Burns MD Primary Care Provider [phone] Encounter Details Date Type Department Care Team (Late st Contact Info) Description 12/18/2022 Specialty Pharmacy [facility] - Main [address] [phone] Becki Major [facility] Social History Tobacco Use Types Packs/Day Years [...] 11:00 EST Office Visit [facility] Bariatric Surgery [facility] 353 [place], [place] [address] Allen Thompson PALizettC 111 [facility] 5 [place] [phone] 10/26/2024 10:45 EST Telemedicine [facility] Neurology - [address] [phone] Sulema Nicole NP [address] [place] [address] 2 [place] [phone] documented as of this encounter Visit Diagnoses Not on filedocumented in this encounter Care Teams Patient Flow Coordinator Relationship Specialty Start Date End Date Curtis Burns MD 26 [facility] [address] [place], [place] [address] PCP - General Emergency Medicine 07/06/22 Juma Herrera MD [address] [place] [address] 12/08/18 documented as of this encounter
--- OUTSIDE RECORDS SUMMARY | 2024-09-17 09:08 | XMS_ITS | Encounter Summary ---
Author Organization [facility] Address [address] [place] [address] Care Team Providers Care Drawstring Knotter Name Role Phone Juam Herrera MD Unavailable Curtis Burns MD Primary Care Provider [phone] Reason for Referral * Radiology Services (Routine/Next Available) - Authorization Not Required Specialty Diagnoses / Procedures Referred By Contac t Referred To Contact Diagnoses Back pain, unspecified back location, unspecified back pain laterality, unspecified chronicity Procedures XR LUMBAR SPINE BENDING VIEWS, 2 OR 3 VIEWS Kj Child MD Phone: tel: fax: [facility] Referral ID Status Reason Start Date Expiration Date Visits Requested Visits Authorized [id number] Authorization Not Required 12/10/2022 1 1 Reason for Visit * Radiology Services (Routine/Next Available) - Authorization Not Required Specialty Diagnoses / Procedures Referred By Contac t Referred To Contact Diagnoses Back pain, unspecified back location, unspecified back pain laterality, unspecified chronicity Procedures XR LUMBAR SPINE BENDING VIEWS, 2 OR 3 VIEWS Kj Child MD Phone: tel: fax: [facility] Referral ID Status Reason Start Date Expiration Date Visits Requested Visits Authorized [id number] Authorization Not Required 12/10/2022 1 1 Encounter Details Date Type Department Care Team (Latest Contact Info) Description 12/11/2022 9:59 EDT - 12/11/2022 23:59 EDT Hospital Encounter [facility] X[facility] [address] [place], [place] [phone] Back pain, unspecified back location, unspecified back [...] this encounter Medications at Time of Discharge busPIRone (BUSPAR) 30 mg tablet Take 1 [...] Care Team (Dinorah roberts Contact Info) Description 09/18/2024 11:00 EST Office Visit [facility] Bariatric Surgery - [place] [address] [place] [address] Allen Thompson PA-C 111 [facility], [facility], Level 5 [place] [phone] 10/26/2024 10:45 EST Telemedicine [facility] Neurology - S [place] 1 [place], [place] [phone] Sulema Nicole, GIULIA 1 [facility], Level 2 [place] [address] documented as of this encounter Procedures Procedure [...] chronicity documented in this encounter Care Teams Drawstring Knotter Relationship Specialty Start Date End Date Curtis Burns MD 26 [facility] [address] [place] [address] PCP - General Emergency Medicine 07/06/22 Juma Herrera MD [address] [facility] [place] [address] 12/08/18 documented as of this encounter
--- OUTSIDE RECORDS SUMMARY | 2024-09-17 09:08 | XMS_ITS | Encounter Summary ---
Author Organization [facility] Address [address] [place] [address] Care Team Providers Care Piece Maker Name Role Phone Juma Herrera MD Unavailable Curtis Burns MD Primary Care Provider [phone] Reason for Visit * Reason Comments Injections * Prior Authorization (Routine/Next Available) - Authorization Not Required Specialty Diagnoses / Procedures Referred By Wili mireles Referred To Contact Orthopedic Surgery Diagnoses Chronic right shoulder pain Jun Balbuena MD Phone: tel: fax: [facility] Sports Medicine Program - [place] [address] Phone: tel: fax: Referral ID Status Reason Start Date Expiration Date Visits Requested Visits Authorized [id number] Authorization Not Required Specialty Services Required 3 1 1 Encounter Details Date Type Department Care Team (Latest Contact Info) Description 02/08/2023 11:30 EDT Procedure visit [facility] Sports Medicine Program - [place] [address] Jun Balbuena MD [address] [place] [phone] Impingement syndrome of shoulder, right (Primary [...] No 09/05/2015 12:00 NATALY Khoa Hernandez * Do you have serious difficulty walking or climbing stairs? (5 years old or older) Answer Date of Assessment Author No 09/05/2015 12:00 Khoa Peñaloza * Do you have difficulty dressing or bathing? (5 years old or older) Answer Date of Assessment Author No 09/05/2015 12:00 NATALY Lazarodinora Khoa bruce * Because of a physical, [...] documented in this encounter Progress Notes * Jun Balbuena [...] [facility] Bariatric Surgery - [place] [address] [place] [address] Allen Thompson PA-C 111 [facility], [facility], Level 5 [place] [address] 10/26/2024 10:45 EST Telemedicine [facility] Neurology - [address] [place] 1 [place] [address] Sulema Nicole, GIULIA 1 [facility], Level 2 [place] [address] documented as of this encounter Procedures Procedure Name Priority Date/Time Associated Diagnosis Comments MEDICATION ONLY INJECTION Routine 02/08/2023 11:30 EDT Impingement syndrome of shoulder, right documented in this encounter Results * Medication Only Injection (02/08/2023 11:30 EDT) Narrative [facility] POINT OF CARE - 02/08/2023 11:30 EDT Jun Balbuena MD ? 02/08/2023 12:49 Medication Only Injection on 02/08/2023 11:30 Medications: 80 mg triamcinolone acetonide 40 mg/mL; 3 mL lidocaine 20 mg/mL (2 %); 3 mL bupivacaine (PF) 0.5% Jun Balbuena MD PROCEDURE/MINOR SURGICAL O RDERABLES Final Result [facility] POINT OF CARE documented in [...] Sat02/08/23 at 1130, Until Sat02/08/23 at 1130, RoutineIndications:Impingement syndrome of shoulder, right Given 02/08/2023 11:30 EDT 3 mL lidocaine 20 mg/mL (2 %) injection 3 mL 3 mL, other, Once PRN Procedure, 1 dose, Starting on Sat02/08/23 at 1130, Until Sat02/08/23 at 1130, RoutineIndications:Impingement syndrome of shoulder, right Given 02/08/2023 11:30 EDT 3 mL triamcinolone acetonide (KENALOG-40) injection 80 mg 80 mg, other, Once PRN Procedure, 1 dose, Starting on Sat02/08/23 at 1130, Until Sat02/08/23 at 1130, RoutineIndications:Impingement syndrome of shoulder, right Given 02/08/2023 11:30 EDT 80 mg documented in this encounter Care Teams Piece Maker Relationship Specialty Start Date End Date Curtis Burns MD 26 [facility] [address] [place] [address] PCP - General Emergency Medicine 07/06/22 Juma Herrera MD [address] [facility] [place] [address] 12/08/18 documented as of this encounter
--- OUTSIDE RECORDS SUMMARY | 2024-09-17 09:08 | XMS_ITS | Encounter Summary ---
Author Organization [facility] Address [address] [place] [address] Care Team Providers Care Semiconductor Testing Group Leader Name Role Phone Juma Herrera MD Unavailable Curtis Burns MD Primary Care Provider [phone] Reason for Visit * Reason Onset Date Comments Appointment Related 12/26/2022 Encounter Details Date Type Department Care Team (Late st Contact Info) Description 12/26/2022 Telephone [facility] Interventional Pain [address] [place] [address] Catalino Garrett MD 62 [facility] [address] [place] [address] Appointment Related Social History Tobacco [...] Encounter - Eleonora Long MA - 12/26/2022 3689 EDT JULIAN contacted patient as a reminder about stopping Meloxicam 4 days, Fish Oil 7 days ahead of procedure on 01/08/23. 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 documented in this encounter Plan of Treatment Upcoming Encounters Date Type Department Care Team (Late st Contact Info) Description 09/18/2024 11:00 EST [facility] Visit [facility] B[facility]ric Surgery - [place] [address] [place] [address] Allen Thompson PA-C [address] [place] [address], [facility], Level 5 [place] [address] 10/26/2024 10:45 EST Telemedicine [facility] Neurology - [place] [address] [place] [phone] Sulema Nicole, GULLET SLITTER 1 [facility], Level 2 [place] [address] documented as of this encounter Visit Diagnoses Not on filedocumented in this encounter Care Teams Semiconductor Testing Group Leader Relationship Specialty Start Date End Date Curtis Burns MD 26 [facility] [address] [place], [place] [address] PCP - General Emergency Medicine 07/06/22 Juma Herrera MD [address] [facility] [place] [address] 12/08/18 documented as of this encounter
--- OUTSIDE RECORDS SUMMARY | 2024-09-17 09:08 | XMS_ITS | Encounter Summary ---
Author Organization [facility] Address [address] [place] [address] Care Team Providers Care Bi Consultant Name Role Phone Juma Herrera MD Unavailable Curtis Burns MD Primary Care Provider [phone] Encounter Details Date Type Department Care Team (Late st Contact Info) Description 01/15/2023 Specialty Pharmacy [facility] Ambulatory Pharmacy - Main [address] [phone] Becki Major [facility] Social History Tobacco Use Types [...] EST Office Visit [facility] Bariatric Surgery [facility] [address] [place], [place] [address] Allen Thompson PALizettC 111 [facility] 5 [place] [phone] 10/26/2024 10:45 EST Telemedicine [facility] Neurology - [address] [phone] Sulema Nicole NP [address] [place] [address] 2 [place] [phone] documented as of this encounter Visit Diagnoses Not on filedocumented in this encounter Care Teams Bi Consultant Relationship Specialty Start Date End Date Curtis Burns MD 26 [facility] [address] [place], [place] [address] PCP - General Emergency Medicine 07/06/22 Juma Herrera MD [address] [facility] [place] [place] [address] 12/08/18 documented as of this encounter
--- OUTSIDE RECORDS SUMMARY | 2024-09-17 09:08 | XMS_ITS | Encounter Summary ---
Author Organization [facility] Address [address] [place] [address] Care Team Providers Care Advertising Sales Executive Name Role Phone Juma Herrera MD Unavailable Curtis Burns MD Primary Care Provider [phone] Reason for Visit * Reason Comments Pain * Referral (3 - 10 Business Days) - Receiving Office to Obtain Authorization Specialty Diagnoses / Procedures Referred By Wili mireles Referred To Contact Orthopedic Surgery Diagnoses Back pain Other dorsalgia [place] Us, CHEMIST ORGANIC 26 [facility] [address] [place] [address] Phone: tel: fax: [facility] [place] [address] Phone: tel: fax: Referral ID Status Reason Start Date Expiration Date Visits Requested Visits Authorized [id number] Receiving Office to Obtain Authorization 1 1 Encounter Details Date Type Department Care Team (Late st Contact Info) Description 12/11/2022 10:15 EDT Office Visit [facility] [place] [address] Kj Child MD [address] [place] [address] [place] [address] Back pain, unspecified back location, [...] A. Gastric sleeve-100 pound weight loss 4. 01-ppki-zfvk smoking history 5. Bipolar disorder Subjective: 47-year-old [...] cartridge a day. 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 She is and makes ends meet through her spouse. She currently has custody of her granddaughter who is under the care of [facility]. Objective: Patient is tender to [...] Office Visit [facility]ric [facility] - [place] [address] [place], [place] [address] Allen Thompson PALizettC 111 [facility], [facility], Level 5 [place] [phone] 10/26/2024 10:45 EST Telemedicine [facility] Neurology - [address] [phone] Sulema Nicole NP [address] [place] [address], Level 2 [place] [address] documented as of this encounter Visit Diagnoses Diagnosis Back pain, unspecified back location, unspecified back pain laterality, unspecified chronicity- Primary documented in this encounter Care Teams Advertising Sales Executive Relationship Specialty Start Date End Date Curtis Burns MD [address] [place], [place] [address] PCP - General Emergency Medicine 07/06/22 Juma Herrera MD [address] [facility] [place] [place] [address] 12/08/18 documented as of this encounter
--- OUTSIDE RECORDS SUMMARY | 2024-09-17 09:08 | XMS_ITS | Encounter Summary ---
Author Organization [facility] Address [address] [place] [address] Care Team Providers Care School Guidance Counselor Name Role Phone Juma Herrera MD Unavailable Curtis Burns MD Primary Care Provider [phone] Reason for Visit * Reason Comments Follow-up Telemedicine Video Visit Encounter Details Date Type Department Care Team (Late st Contact Info) Description 07/15/2023 14:00 EST Telemedicine [facility] Neurology - [place] [address] [place] [phone] Kj Gloria MD PhD [address] [place] [address] 2 [place] [address] Chronic migraine without aura without [...] (without side effects), rizatriptan 10mg PRN, or ligarxvxxva0ln sc injections (~ 2 to 3 times [...] [facility] Bariatric Surgery - [place] [address] [place] [address] Allen Thompson PALizettC 111 [facility], [facility], Level 5 [place] [phone] 10/26/2024 10:45 EST Telemedicine [facility] Neurology - [address] [phone] Sulema Nicole NP 1 [facility], Level 2 [place] [phone] documented as of this encounter Visit Diagnoses Diagnosis Chronic migraine without aura without status migrainosus, not intractable- Primary Chronic migraine without aura, without mention of intractable migraine without mention of status migrainosus documented in this encounter Historical Medications * This list may reflect changes made after this encounter. UNABLE TO FIND daily. Med Name: Salon Pas/Lidocaine Patch ALBUTEROL INHL Inhale as directed 2 times daily. B-complex with vitamin C (VITAMIN B COMPLEX-C ORAL) Take by mouth daily. added in this encounter Care Teams School Guidance Counselor Relationship Specialty Start Date End Date Curtis Burns MD 26 [facility] [address] [place] [address] PCP - General Emergency Medicine 07/06/22 Juma Herrera MD [address] [place] [address] 12/08/18 documented as of this encounter
--- OUTSIDE RECORDS SUMMARY | 2024-09-17 09:08 | XMS_ITS | Encounter Summary ---
Author Organization [facility] Address [address] [place] [address] Care Team Providers Care Assembler Bonding Name Role Phone Juma Herrera MD Unavailable Curtis Burns MD Primary Care Provider [phone] Reason for Visit * Reason Comments Follow-up Telemedicine Video Visit Encounter Details Date Type Department Care Team (Late st Contact Info) Description 12/17/2022 11:00 EDT Telemedicine [facility] Neurology - [place] [address] [place] [phone] Kj Gloria MD PhD 1 [facility] Level 2 [place] [address] Chronic migraine without aura without [...] [facility] B[facility] - [address] [address] Allen Thompson, ELISABETH 111 [facility] 5 [place] [phone] 10/26/2024 10:45 EST Telemedicine [facility] Neurology - [address] [phone] Sulema Nicole NP [address] [place] [address] Level 2 [place] [phone] documented as of this encounter Visit Diagnoses Diagnosis Chronic migraine without aura without status migrainosus, not intractable- Primary Chronic migraine without aura, without mention of intractable migraine without mention of status migrainosus documented in this encounter Historical Medications * This list may reflect changes made after this encounter. naproxen sodium (ALEVE ORAL) Take 1 Tablet by mouth 2 times daily. prn acetaminophen (TYLENOL EX STR RAPID RELEASE ORAL) Take by mouth 3 times daily. omega-3 fatty acids/fish oil (FISH OIL-OMEGA-3 FATTY ACIDS) 300-1,000 mg capsule daily. 10/09/2022 added in this encounter Care Teams Assembler Bonding Relationship Specialty Start Date End Date Curtis Burns MD 26 [facility] [address] [place] [address] PCP - General Emergency Medicine 07/06/22 Juma Herrera MD [address] [place] [phone] 12/08/18 documented as of this encounter
--- OUTSIDE RECORDS SUMMARY | 2024-09-17 09:08 | XMS_ITS | Encounter Summary ---
Author Organization [facility] Address [address] [place] [address] Care Team Providers Care Silk Finisher Name Role Phone Juma Herrera MD Unavailable Curtis Burns MD Primary Care Provider Encounter Details Date Type Department Care Team (Late st Contact Info) Description 03/12/2023 Specialty [address] [facility] Ambulatory Pharmacy - Main [address] [phone] Jj Verduzco, [facility] Social History Tobacco Use Types [...] [facility] Bariatric Surgery [facility] 353 [place], [place] [address] Allen Thompson PA-C [address] [place] [address] 5 [place] [phone] 10/26/2024 10:45 EST Telemedicine [facility] Neurology - [address] [phone] Sulema Nicole NP [address] [place] [address] 2 [place] [phone] documented as of this encounter Visit Diagnoses Not on filedocumented in this encounter Care Teams Silk Finisher Relationship Specialty Start Date End Date Curtis Burns MD 26 [facility] [address] [place], [place] [address] PCP - General Emergency Medicine 07/06/22 Juma Herrera MD 24[address] [facility] [place] [address] 12/08/18 documented as of this encounter
--- OUTSIDE RECORDS SUMMARY | 2024-09-17 09:08 | XMS_ITS | Encounter Summary ---
Author Organization [facility] Address [address] [place] [address] Care Team Providers Care Lap Checker Name Role Phone Juma Herrera MD Unavailable Curtis Burns MD Primary Care Provider [phone] Encounter Details Date Type Department Care Team (Late st Contact Info) Description 06/06/2023 Specialty Pharmacy [facility] Ambulatory Pharmacy - Main [address] [phone] Ana Rosa Croft, [facility] Social History Tobacco Use Types [...] Info) Description 09/18/2024 11:00 EST Office Visit [facility] Bariatric Surgery [facility] 353 [place], [place] [address] Allen Thompson PA-C 111 [facility] 5 [place] [phone] 10/26/2024 10:45 EST Telemedicine [facility] Neurology - [address] [phone] Sulema Nicole NP [address] [place] [address] 2 [place] [phone] documented as of this encounter Visit Diagnoses Not on filedocumented in this encounter Care Teams Lap Checker Relationship Specialty Start Date End Date Curtis Burns MD 26 [facility] [address] [place], [place] [address] PCP - General Emergency Medicine 07/06/22 Juma Herrera MD [address] [facility] [place] [address] 12/08/18 documented as of this encounter
--- OUTSIDE RECORDS SUMMARY | 2024-09-17 09:08 | XMS_ITS | Encounter Summary ---
Author Organization [facility] Address [address] [place] [address] Care Team Providers Care Cradle Placer Name Role Phone Juma Herrera MD Unavailable Curtis Burns MD Primary Care Provider [phone] Reason for Visit * Reason Comments Neck Pain Patient is here for neck pain * Prior Authorization (Routine) - Specialty Report Received Specialty Diagnoses / Procedures Referred By Wili mireles Referred To Contact Pain Medicine Diagnoses Radiculopathy, cervical region YSABEL Procedures MO NJX DX/THER SBST INTRLMNR CRV/THRC W/IMG GDN PROCEDURE SHORT Catalino Garrett MD Phone: tel: fax: Catalino Garrett MD [address] [place] [address] Phone: tel: fax: Referral ID Status Reason Start Date Expiration Date V isits Requested Visits Authorized [id number] Specialty Report Received 01/08/2023 03/08/2023 1 1 Encounter Details Date Type Department Care Team (Latest Contact Info) Description 01/08/2023 11:00 EDT Procedure visit [facility] Interventional Pain [address] [place] [address] Catalino Garrett MD 62 [facility] [address] [place] [address] Radiculopathy, cervical region (Primary Dx) Social [...] Author Yes 09/15/2018 7:52 EST Nina Hernandez mike documented in this encounter Patient Instructions * Patient Instructions* Emma Guallpa RN - 01/08/2023 11:00 EDT [facility] [address] [address] Patient Instructions You have had your cervical [...] None Outcomes: independent and verbalized understanding Signature: EMMA GUALLPA RN documented in this encounter Progress Notes * Eleonora Long MA - 01/08/2023 1100 EDT [facility] Rooming Note Does patient have a Hydrogeology Professor? Yes Is patient NPO? (Solids since midnight [...] the 2 weeks? No Other: No * Emma Guallpa RN - 01/08/2023 1100 EDT ATTENTION: [...] Rooney : 1975 Date of Service: 01/08/2023 Supervisor Weaving: Gerry MEHTA Digital Producer: none Procedure: Therapeutic cervical epidural steroid injections [...] Info) Description 09/18/2024 11:00 EST Office Visit [facility] Bariatric Surgery [address] [phone] Allen Thompson PA-C [address] [place] [address] Level 5 [place] [phone] 10/26/2024 10:45 EST Telemedicine [facility] Neurology - [address] [phone] Sulema Nicole NP [address] [place] [address] Level 2 [place] [phone] documented as of this encounter Visit Diagnoses [...] mL documented in this encounter Care Teams Cradle Placer Relationship Specialty Start Date End Date Curtis Burns MD 26 [facility] [address] [place] [address] PCP - General Emergency Medicine 07/06/22 Juma Herrera MD [address] [facility] [place] [address] 12/08/18 documented as of this encounter
--- OUTSIDE RECORDS SUMMARY | 2024-09-17 09:08 | XMS_ITS | Encounter Summary ---
Author Organization [facility] Address [address] [place] [address] Care Team Providers Care Logging Truck Driver Name Role Phone Juma Herrera MD Unavailable Curtis Burns MD Primary Care Provider [phone] Reason for Visit * Reason Onset Date Comments Other 02/25/2023 Back Brace Encounter Details Date Type Department Care Team (Late st Contact Info) Description 02/25/2023 Telephone [facility] - [facility] [address] [place] [address] Kj Child MD [address] [facility] [place] [address] Other (Back Brace ) Social [...] Info) Description 09/18/2024 11:00 EST Office Visit [facility] Bariatric Surgery - [place] [address] [place] [address] Allen Thompson, PA-C 111 [facility], Level 5 [place] [phone] 10/26/2024 10:45 EST Telemedicine [facility] Neurology - [address] [address] Sulema Nicole, RAIL MANAGER 1 [facility] Level 2 [place] [address] documented as of this encounter Visit Diagnoses Not on filedocumented in this encounter Care Teams Logging Truck Driver Relationship Specialty Start Date End Date Curtis Burns MD 26 [facility] [address] [place], [place] [address] PCP - General Emergency Medicine 07/06/22 Juma Herrera MD 2450 [facility] [place] [phone] 12/08/18 documented as of this encounter
--- OUTSIDE RECORDS SUMMARY | 2024-09-17 09:08 | XMS_ITS | Encounter Summary ---
Author Organization [facility] Address [address] [place] [address] Care Team Providers Care Corporate Sales Representative Name Role Phone Juma Herrera MD Unavailable Curtis Burns MD Primary Care Provider [phone] Encounter Details Date Type Department Care Team (Latest Contact Info) Description 07/02/2023 7:53 EDT - 07/02/2023 23:59 EDT Hospital Encounter [facility] Xray [address] [place], [place] [phone] Discharge Disposition: Home or Self Care Social [...] Visit [facility] Bariatric Surgery [facility] [address] [place] [address] Allen Thompson, PA-C 111 [facility] 5 [place] [phone] 10/26/2024 10:45 EST Telemedicine [facility] Neurology - [address] 975221 Sulema Nicole NP [address] [place] [address] Level 2 [place] [phone] documented as of this encounter Procedures Procedure Name Priority Date/Time Associated Diagnosis Comments [facility] [place] LUMBAR INJECTION Routine 07/02/2023 11:19 EDT documented in this encounter Results * PAIN CLINIC [place] LUMBAR INJECTION (07/02/2023 11:19 EDT) Narrative 07/02/2023 11:19 EDT This is a non-reportable exam. us Catalino Garrett MD IMG OTHER IMAGING ORDERABLES Fin al Result documented in this encounter Visit Diagnoses Not on filedocumented in this encounter Care Teams Corporate Sales Representative Relationship Specialty Start Date End Date Curtis Burns MD 26 [facility] [address] [place] [address] PCP - General Emergency Medicine 07/06/22 Juma Herrera MD [address] [facility] [place] [address] 12/08/18 documented as of this encounter
--- OUTSIDE RECORDS SUMMARY | 2024-09-17 09:08 | XMS_ITS | Encounter Summary ---
Author Organization [facility] Address [address] [place] [address] Care Team Providers Care Skilled Helper Name Role Phone Juma Herrera MD Unavailable Curtis Burns MD Primary Care Provider [phone] Reason for Visit * Reason Onset Date Comments Appointment Related 06/19/2023 Encounter Details Date Type Department Care Team ([facility] st Contact Info) Description 06/19/2023 Telephone [facility] Neurology - S [place] [address] [place] [address] [phone] Kj Gloria MD PhD 1 [facility] 2 [place] [address] Appointment Related Social History [...] [facility] Bariatric Surgery - [place] [address] [place], [place] [address] Allen Thompson PA-C 111 [facility], Level 5 [place] [phone] 10/26/2024 10:45 EST Telemedicine [facility] Neurology - S [address] [address] Sulema Nicole, OFFICE ASSISTANT RECEPTIONIST 1 [facility], Level 2 [place] [phone] documented as of this encounter Visit Diagnoses Not on filedocumented in this encounter Care Teams Skilled Helper Relationship Specialty Start Date End Date Curtis Burns MD 26 [facility] [address] [place] [address] PCP - General Emergency Medicine 07/06/22 Juma Herrera MD [address] [facility] [place] [address] 12/08/18 documented as of this encounter
--- OUTSIDE RECORDS SUMMARY | 2024-09-17 09:08 | XMS_ITS | Encounter Summary ---
Author Organization [facility] Address [address] [place] [address] Care Team Providers Care Critical Care Specialist Name Role Phone Juma Herrera MD Unavailable Curtis Burns MD Primary Care Provider [phone] Encounter Details Date Type Department Care Team (Latest Contact Info) Description 07/04/2023 Specialty Pharmacy [facility] Ambulatory Pharmacy - Main [address] [phone] Becki Major [facility] Refill Coordination Outreach for Headache [...] documented in this encounter Progress Notes * Shana Ordoñez - 07/04/2023 1102 EDT Medication Refill Request Medication: Aimovig Patient needs medication by: 08/09 Scheduled outreach date: 08/01 Pharmacy: [facility] ([facility] [address] [place] [address] appt: Visit date not found documented in this encounter Plan of Treatment Upcoming Encounters Date Type Department Care Team (Late st Contact Info) Description 09/18/2024 11:00 EST Office Visit [facility] Bariatric Surgery [facility] [address] [place] [address] Allen Thompson PA-C 111 [facility] Level 5 [place] [phone] 10/26/2024 10:45 EST Telemedicine [facility] Neurology - [address] [phone] Sulema Nicole NP [address] [place] [address] Level 2 [place] [phone] documented as of this encounter Visit Diagnoses Not on filedocumented in this encounter Care Teams Critical Care Specialist Relationship Specialty Start Date End Date Curtis Burns MD 26 [facility] [address] [place] [address] PCP - General Emergency Medicine 07/06/22 Juma Herrera MD 2450 S [facility] [place] [address] 12/08/18 documented as of this encounter
--- OUTSIDE RECORDS SUMMARY | 2024-09-17 09:08 | XMS_ITS | Encounter Summary ---
Author Organization [facility] Address [address] [place] [address] Care Team Providers Care Rn Patient Services Name Role Phone Juma Herrera MD Unavailable Curtis Burns MD Primary Care Provider [phone] Encounter Details Date Type Department Care Team (Late st Contact Info) Description 11/21/2022 Specialty Pharmacy [facility] Ambulatory Pharmacy - Main [address] [phone] Jj Verduzco, [facility] Social History Tobacco Use Types Packs/Day [...] [facility] Bariatric Surgery [facility] [address] [place], [place] [address] Allen Thompson PA-C [address] [place] [address] 5 [place] [phone] 10/26/2024 10:45 EST Telemedicine [facility] Neurology - [address] [phone] Sulema Nicole NP [address] [place] [address] 2 [place] [phone] documented as of this encounter Visit Diagnoses Not on filedocumented in this encounter Care Teams Rn Patient Services Relationship Specialty Start Date End Date Curtis Burns MD 26 [facility] [address] [place], [place] [address] PCP - General Emergency Medicine 07/06/22 Juma Herrrea MD [address] [facility] [place] [address] 12/08/18 documented as of this encounter
--- OUTSIDE RECORDS SUMMARY | 2024-09-17 09:08 | XMS_ITS | Encounter Summary ---
Author Organization [facility] Address [address] [place] [address] Care Team Providers Care Cinder Man Name Role Phone Juma Herrera MD Unavailable Curtis Burns MD Primary Care Provider [phone] Encounter Details Date Type Department Care Team (Late st Contact Info) Description 05/08/2023 Specialty Pharmacy [facility] Ambulatory Pharmacy - Main [address] [phone] Jj Verduzco, [facility] Social History Tobacco Use [...] documented in this encounter Progress Notes * Jj Verduzco RPH - 05/08/2023 1051 EDT [facility] Specialty Pharmacy CGRP Routine Follow Up Tia Rooney is a 47 y.o. female being treated with Aimovig 140mg for migraine. Side effects/toxicities: none Assessment: Patient is established on therapy,. Medication still working well in [facility]. Jj Verduzco, PharmD Specialty Pharmacy 05/08/2023 * [...] [facility] Bariatric Surgery - [place] [address] [place] [address] Allen Thompson PA-C 111 [facility], [facility], Level 5 [place] [address] 10/26/2024 10:45 EST Telemedicine [facility] Neurology - [place] [address] [place] [phone] Sulema Nicole, FINANCIAL SERVICES TECHNICIAN 1 [facility], Level 2 [place] [phone] documented as of this encounter Visit Diagnoses Not on filedocumented in this encounter Care Teams Cinder Man Relationship Specialty Start Date End Date Curtis Burns MD 26 [facility] [address] [place], [place] [address] PCP - General Emergency Medicine 07/06/22 Juma Herrera MD [address] [facility] [address] 12/08/18 documented as of this encounter
--- OUTSIDE RECORDS SUMMARY | 2024-09-17 09:08 | XMS_ITS | Encounter Summary ---
Author Organization [facility] Address [address] [place] [address] Care Team Providers Care Editor Map Name Role Phone Juma Herrera MD Unavailable Curtis Burns MD Primary Care Provider [phone] Encounter Details Date Type Department Care Team (Late st Contact Info) Description 02/11/2023 Specialty Pharmacy [facility] Ambulatory Pharmacy - Main [address] [phone] Jj Verduzco, [facility] Social History Tobacco Use Types Packs/Day Years [...] Office Visit [facility] Bariatric Surgery [facility] [address] [place], [place] [address] Allen Thompson PA-C [address] [place] [address] 5 [place] [phone] 10/26/2024 10:45 EST Telemedicine [facility] Neurology - [address] [phone] Sulema Nicole NP [address] [place] [address] 2 [place] [phone] documented as of this encounter Visit Diagnoses Not on filedocumented in this encounter Care Teams Editor Map Relationship Specialty Start Date End Date Curtis Burns MD [address] [facility] [address] [place], [place] [address] PCP - General Emergency Medicine 07/06/22 Juma Herrera MD [address] [facility] [place] [address] 12/08/18 documented as of this encounter
--- OUTSIDE RECORDS SUMMARY | 2024-09-17 09:08 | XMS_ITS | Encounter Summary ---
Author Organization [facility] Address [address] [place] [address] Care Team Providers Care Farmworker Grain Name Role Phone Juma Herrera MD Unavailable Curtis Burns MD Primary Care Provider [phone] Reason for Visit * Reason Onset Date Comments Medications Refill 06/10/2023 Encounter Details Date Type Department Care Team (Late st Contact Info) Description 06/10/[address] [facility] Neurology - S [address] [phone] Kj Gloria MD PhD 1 [facility] 2 [place] [phone] Medications Refill Social History Tobacco Use Types [...] in this encounter Progress Notes * Becki Major RPH - 06/10/2023 1128 EDT encounter opened in error. documented in this encounter Plan of Treatment Upcoming Encounters Date Type Department Care Team (Late st Contact Info) Description 09/18/2024 11:00 EST Office Visit [facility] Bariatric Surgery - [address] [address] Allen Thompson, PA-C 111 [facility] 5 [place] [phone] 10/26/2024 10:[address] [facility] Neurology - [address] [phone] Sulema Nicole NP [address] [place] [address] 2 [place] [phone] documented as of this encounter Visit Diagnoses Not on filedocumented in this encounter Care Teams Farmworker Grain Relationship Specialty Start Date End Date Curtis Burns MD 26 [facility] [address] [place] [address] PCP - General Emergency Medicine 07/06/22 Juma Herrera MD [address] [facility] [place] [place] [phone] 12/08/18 documented as of this encounter
--- OUTSIDE RECORDS SUMMARY | 2024-09-17 09:08 | XMS_ITS | Encounter Summary ---
Author Organization [facility] Address [address] [place] [address] Care Team Providers Care Rail Detector Car Operator Name Role Phone Juma Herrera MD Unavailable Curtis Burns MD Primary Care Provider [phone] Encounter Details Date Type Department Care Team (Late st Contact Info) Description 04/10/2023 Specialty Pharmacy [facility] Ambulatory Pharmacy - Main [address] [phone] Jj Verduzco, [facility] Social History [...] Date of Assessment Author Yes 09/15/2018 7:52 iNna Peñaloza documented as of this encounter Mental Status * Because of a physical, mental, or emotional condition, does this person have serious difficulty concentrating, remembering, or making decisions? Answer Entry Date Author Yes 09/15/2018 7:52 Nina Peñaloza documented in this encounter Miscellaneous Notes * Addendum Note - Carlene Mccoy RPH - 04/10/2023 1530 EDTAddended by: CARLENE MCCOY on: 05/02/2023 09:26 Modules accepted: Orders documented in this encounter Plan of Treatment Upcoming Encounters Date Type Department Care Team (Late st Contact Info) Description 09/18/2024 11:00 EST Office Visit [facility] Bariatric Surgery - [place] 353 [place], [place] [address] Allen Thompson PA-C 111 [facility], [facility] 5 [place] [phone] 10/26/2024 10:45 EST Telemedicine [facility] Neurology - [address] [phone] Sulema Nicole NP [address] [place] [address] Level 2 [place] [address] documented as of this encounter Visit Diagnoses Not on filedocumented in this encounter Care Teams Rail Detector Car Operator Relationship Specialty Start Date End Date Curtis Burns MD [address] [place], [place] [address] PCP - General Emergency Medicine 07/06/22 Juma Herrera MD [address] [place] [phone] 12/08/18 documented as of this encounter
--- OUTSIDE RECORDS SUMMARY | 2024-09-17 09:08 | XMS_ITS | Encounter Summary ---
Author Organization [facility] Address [address] [place] [address] Care Team Providers Care Oim Consultant Name Role Phone Juma Herrera MD Unavailable Curtis Burns MD Primary Care Provider Reason for Visit * Reason Comments Back Pain Right side * Prior Authorization (Routine) - Authorized Specialty Diagnoses / Procedures [facility] Referred To Contact Pain Medicine Diagnoses right [id number] [id number] Procedures NM NJX AA&/STRD TFRML EPI LUMBAR/SACRAL 1 LEVEL PAIN CLINIC PROCEDURE [facility] Interventional Pain [address] [place] [address] Phone: tel: fax: Catalino Garrett MD [address] [place], [place] [address]ey [address] [address] Phone: tel: fax: Referral ID Status Reason Start Date Expiration Date V isits Requested Visits Authorized [id number] Authorized 07/02/2023 09/30/2023 1 1 Encounter Details Date Type Department Care Team (Latest Contact Info) Description 07/02/2023 11:00 EDT Office Visit [facility] Interventional Pain [address] [place] [address] Catalino Garrett MD [address] [place] [address] [place] [address] Lumbar radiculopathy (Primary Dx) Social History [...] EST Nina Hernandez documented in this encounter Patient Instructions * Patient Instructions* Emma Guallpa RN - 07/02/2023 11:00 EDT [facility] [place] [phone] Patient Instructions You have had your right [...] Management Rooming Note Does patient have a Dat Instructor? yes Is patient NPO? (Solids since midnight [...] Rooney : 1975 Date of Service: 07/02/23 Employment Programs Analyst: MD Gerry President/Gm Production & Live Experiences: none Procedure: Lumbar transforaminal epidural steroid injections [...] Visit [facility] Bariatric Surgery [address] [address] Allen Thompson PA-C 111 [facility] 5 [place] [phone] 10/26/2024 10:45 EST Telemedicine [facility] Neurology - [address] 1888[address] Sulema Nicole NP [address] [place] [address] Level [address] [place] [phone] documented as of this encounter Visit Diagnoses Diagnosis Lumbar radiculopathy- Primary Thoracic or lumbosacral neuritis or radiculitis, unspecified documented in this encounter Administered Medications Inactive Administered Medications - up to 3 most recent administrations Medication Order MAR Action Action Date Dose Rate Site BUPivacaine (PF) (MARCAINE) 0.25 % (2.5 mg/mL) injection 1 mL 1 mL, neural-axial, NOW X1, 1 dose, On Sat07/02/23 at 1130, Routine Given by Other 07/02/2023 11:14 EDT 1 mL dexAMETHasone (DECADRON) injection 10 mg 10 mg, neural-axial, NOW X1, 1 dose, On Sat07/02/23 at 1130, Routine Given by Other 07/02/2023 11:14 EDT 10 mg documented in this encounter Care Teams Oim Consultant Relationship Specialty Start Date End Date Curtis Burns MD 26 [facility] [address] [place] [address] PCP - General Emergency Medicine 07/06/22 Juma Herrera MD [address] [facility] [place] [address] 12/08/18 documented as of this encounter
--- OUTSIDE RECORDS SUMMARY | 2024-09-17 09:08 | XMS_ITS | Encounter Summary ---
Author Organization [facility] Address [address] [place] [address] Care Team Providers Care Assistant Paralegal Name Role Phone Juma Herrera MD Unavailable Curtis Burns MD Primary Care Provider [phone] Reason for Visit * Reason Comments Neck Pain * Prior Authorization (Routine) - Specialty Report Received Specialty Diagnoses / Procedures Referred By Wili mireles Referred To Contact Pain Medicine Diagnoses Radiculopathy, cervical region YSABEL Procedures TN NJX DX/THER SBST INTRLMNR CRV/THRC W/IMG GDN PROCEDURE MEDIUM [facility] Interventional Pain [address] [place] [address] Phone: tel: fax: Catalino Garrett MD [address] [place] [address] [place] [address] Phone: tel: fax: Referral ID Status Reason Start Date Expiration Date V isits Requested Visits Authorized [id number] Specialty Report Received 05/02/2023 07/31/2023 1 1 Encounter Details Date Type Department Care Team (Latest Contact Info) Description 05/02/2023 10:00 EDT Procedure visit [facility] Interventional Pain [address] [place] [address] Catalino Garrett MD 62 [facility] [address] [place] [address] Radiculopathy, cervical region (Primary Dx) [...] 05/02/2023 10:00 EDT [facility] [address] [place], [place] [address] Patient Instructions You have had your cervical [...] documented in this encounter Progress Notes * Barak Zimmerman MD - 05/02/2023 1000 EDT Patient Name: Tia Rooney : 1975 Date of Service: 05/02/2023 Letter Of Credit Clerk: Gerry MEHTA Associate Professor Of Biostatistics: MD Erasmo Procedure: Therapeutic cervical epidural steroid [...] patient prior to discharge. Barak Zimmerman MD [facility] Interventional Pain Medicine Fellow (PGY-5) 05/02/23 Attending attestation: I have seen and evaluated the patient with the resident/fellow. I agree withthe findings and plan of care documented in the resident's/fellow's note. In addition, I was present and participating during the entire procedure. Catalino Garrett MD * Saniya Larsen MA - 05/02/2023 1000 EDT [place] [facility] Rooming Note Does patient have a Diamond Selector? yes Is patient NPO? (Solids since midnight [...] [facility] Bariatric Surgery [address] [address] Allen Thompson, ZHOUC 111 [facility] 5 [place] [phone] 10/26/2024 10:45 EST Telemedicine [facility] Neurology - [address] [address] Sulema Nicole NP [address] [place] [address] 2 [place] [phone] documented as of this encounter Visit Diagnoses [...] mL documented in this encounter Care Teams Assistant Paralegal Relationship Specialty Start Date End Date Curtis Burns MD 26 [facility] [address] [place] [address] PCP - General Emergency Medicine 07/06/22 Juma Herrera MD [address] [facility] [place] [place] [address] 12/08/18 documented as of this encounter
--- OUTSIDE RECORDS SUMMARY | 2024-09-17 09:08 | XMS_ITS | Encounter Summary ---
Author Organization [facility] Address [address] [place] [address] Care Team Providers Care Turn Sewer Name Role Phone Juma Herrera MD Unavailable Curtis Burns MD Primary Care Provider [phone] Reason for Visit * Reason Onset Date Comments Injections 12/17/2022 Encounter Details Date Type Department Care Team (Late st Contact Info) Description 12/17/2022 Telephone [facility] Hand & Upper Extremity Program - [address] [address] Jun Balbuena MD [address] [place] [address] Injections Social History Tobacco Use Types [...] Info) Description 09/18/2024 11:00 EST Office Visit [facility] Bariatric Surgery - [place] [address] [place] [address] Allen Thompson PA-C [address] [place] [address] 5 [place] [address] 10/26/2024 10:45 EST Telemedicine [facility] Neurology - S [address] [phone] Sulema Nicole, SURGICAL GARMENT ASSEMBLY SUPERVISOR 1 [facility], Level 2 [place] [phone] documented as of this encounter Visit Diagnoses Not on filedocumented in this encounter Care Teams Turn Sewer Relationship Specialty Start Date End Date Curtis Burns MD 26 [facility] [address] [place], [place] [address] PCP - General Emergency Medicine 07/06/22 Juma Herrera MD [address] [facility] [place] [address] 12/08/18 documented as of this encounter
--- OUTSIDE RECORDS SUMMARY | 2024-09-17 09:09 | XMS_ITS | Encounter Summary ---
Author Organization [facility] Address [address] [place] [address] Care Team Providers Care Scrap Materials Buyer Name Role Phone Juma Herrera MD Unavailable Curtis Burns MD Primary Care Provider [phone] Reason for Visit * (Routine/Next Available) - Receiving Office to Obtain Authorization Specialty Diagnoses / Procedures Referred By Wili mireles Referred To Contact Procedures MR OUTSIDE IMAGES LUMBAR SPINE Imaging, External Referral ID Status Reason Start Date Expiration Date Visits Requested Visits Authorized [id number] Receiving Office to Obtain Authorization 11/23/2022 1 1 Encounter Details Date Type Department Care Team (Latest Contact Info) Description 11/07/2022 Hospital Encounter [facility] Secondary Reads [place] Discharge Disposition: Home [...] every 28 days. 3 mL 3 12/20/2021 3 omeprazole (PRILOSEC) 40 mg capsule Take [...] Info) Description 09/18/2024 11:00 EST Office Visit [facility] Bariatric Surgery [facility] [address] [place] [address] Allen Thompson, PALizettC 111 [facility], [facility] 5 [place] [phone] 10/26/2024 10:45 EST Telemedicine [facility] Neurology - [address] [phone] Sulema Nicole NP [address] [place] [address] Level [address] [place] [address] documented as of this encounter Procedures Procedure Name Priority Date/Time Associated Diagnosis Comments MR OUTSIDE IMAGES LUMBAR SPINE Routine 11/07/2022 15:50 EST documented in this encounter Results * MR OUTSIDE IMAGES LUMBAR SPINE (11/07/2022 15:50 EST) Narrative 11/23/2022 15:51 EDT This is a non-reportable exam. us External Imaging IMG OTHER IMAGING ORDERABLES Fi nal Result documented in this encounter Visit Diagnoses Not on filedocumented in this encounter Care Teams Scrap Materials Buyer Relationship Specialty Start Date End Date Curtis Burns MD 26 [facility] [address] [place] [address] PCP - General Emergency Medicine 07/06/22 Juma Herrera MD [address] [place] [address] 12/08/18 documented as of this encounter
--- OUTSIDE RECORDS SUMMARY | 2024-09-17 09:09 | XMS_ITS | Encounter Summary ---
Author Organization [facility] Address [address] [place] [address] Care Team Providers Care Machine Sprayer Name Role Phone Juma Herrera MD Unavailable Shonda Sánchez REGISTERED NURSE FIRST ASSISTANT Primary Care Provider [phone] Reason for Visit * Reason Onset Date Comments Appointment Related 01/23/2022 Encounter Details Date Type Department Care Team (Late st Contact Info) Description 01/23/2022 Telephone [facility] Interventional Pain [address] [place] [address] Catalino Garrett MD [address] [facility] [address] [place] [address] Appointment Related Social History Tobacco [...] Info) Description 09/18/2024 11:00 EST Office Visit [facility] Bariatric Surgery [facility] [address] [place] [address] Allen Thompson PA-C [address] [place] [address], [facility] 5 [place] [address] 10/26/2024 10:45 EST Telemedicine [facility] Neurology - S [place] 1 [place], [place] [phone] Sulema Nicole REGISTERED NURSE FIRST ASSISTANT 1 [facility], Level 2 [place] [phone] documented as of this encounter Visit Diagnoses Not on filedocumented in this encounter Care Teams Machine Sprayer Relationship Specialty Start Date End Date Shonda Sánchez NP [address] [place] [phone] PCP - General 03/14/21 01/31/22 Juma Herrera MD [address] [facility] [place] [address] 12/08/18 documented as of this encounter
--- OUTSIDE RECORDS SUMMARY | 2024-09-17 09:09 | XMS_ITS | Encounter Summary ---
Author Organization [facility] Address [address] [place] [address] Care Team Providers Care Bump Grader Operator Name Role Phone Juma Herrera MD Unavailable Curtis Burns MD Primary Care Provider [phone] Reason for Visit * Reason Onset Date Comments Results 08/29/2022 Encounter Details Date Type Department Care Team (Late st Contact Info) Description 08/29/2022 Telephone [facility] Interventional Pain [address] [place], [place] [phone] Shantelle Gautam RN Results Social History Tobacco [...] Info) Description 09/18/2024 11:00 EST Office Visit [facility] Bariatric Surgery - [place] [address] [place], [place] [address] Allen Thompson PA-C 111 [facility], Level 5 [place] [phone] 10/26/2024 10:45 EST Telemedicine [facility] Neurology - [address] [phone] Sulema Nicole, MEDICAL REVIEW SPECIALIST 1 [facility], Level 2 [place] [address] documented as of this encounter Visit Diagnoses Not on filedocumented in this encounter Care Teams Bump Grader Operator Relationship Specialty Start Date End Date Curtis Burns MD 26 [facility] [address] [place] [address] PCP - General Emergency Medicine 07/06/22 Juma Herrera MD [address] [facility] [place] [address] 12/08/18 documented as of this encounter
--- OUTSIDE RECORDS SUMMARY | 2024-09-17 09:09 | XMS_ITS | Encounter Summary ---
Author Organization [facility] Address [address] [place] [address] Care Team Providers Care Welding Machine Operator Thermit Name Role Phone Juma Herrera MD Unavailable [facility] Primary Care Provider [phone] Encounter Details Date Type Department Care Team (Late st Contact Info) Description 07/03/2022 Specialty Pharmacy [facility] Ambulatory Pharmacy - Main [place] [address] [place] [phone] Jj Verduzco [facility] Social History Tobacco Use Types [...] documented in this encounter Progress Notes * Светлана Felipe - 07/03/2022 1149 EDT [facility] Specialty Pharmacy Delivery Information Hours: Saturday-Saturday 8:30am - 5:00pm *Pharmacist available sap ppm consultant 25/03 Delivery Service: [employer] Delivery Window: None Specified Date of Delivery: 07/11/22 Tracking # : [id number] documented in this encounter Plan of Treatment Upcoming Encounters Date Type Department Care Team (Late st Contact Info) Description 09/18/2024 11:00 EST Office Visit [facility] Bariatric Surgery - [place] [address] [place] [address] Allen Thmopson, PA-C [address] [place] [address] 5 [place] [phone] 10/26/2024 10:45 EST Telemedicine [facility] Neurology - S [address] [phone] Sulema Nicole NP [address] [place] [address] 2 [place] [phone] documented as of this encounter Visit Diagnoses Not on filedocumented in this encounter Care Teams Welding Machine Operator Thermit Relationship Specialty Start Date End Date [facility] [address] [place] [address] PCP - General 02/01/22 07/05/22 Juma Herrera MD [address] [facility] [place] [phone] 12/08/18 documented as of this encounter
--- OUTSIDE RECORDS SUMMARY | 2024-09-17 09:09 | XMS_ITS | Encounter Summary ---
Author Organization [facility] Address [address] [place] [address] Care Team Providers Care Solar Electric Installer Name Role Phone Juma Herrera MD Unavailable [facility], Primary Care Provider [phone] Encounter Details Date Type Department Care Team (Latest Contact Info) Description 02/01/2022 7:45 EDT - 02/01/2022 23:59 EDT Hospital Encounter [facility] Xray [address] [place], [place] [id number] Discharge Disposition: Home or Self Care Social [...] needed for Nausea 60 Tab 0 08/31/2015 diphenhydrAMINE-ac etaminophen 25-500 mg tablet Take 1 Tablet by mouth at bedtime as needed. 2 erenumab-aooe (AIMOVIG AUTOINJECTOR) 140 mg/mL auto-injector Inject 1 mL into the skin every 28 days. 3 mL 3 12/20/2021 3 LORazepam (ATIVAN) 0.5 mg tablet Take 0.5 mg by mouth at bedtime. 2 omeprazole (PRILOSEC) 40 mg capsule Take 1 capsule by mouth daily. 90 capsule 3 09/22/2021 3 oxyCODONE (ROXICODONE) 5 mg immediate release tablet Take 2 Tabs by mouth every 4 hours Hold for now while taking liquid form Daily Max: 60 mg 09/07/2015 2 pediatric multivitamin (JUAN CHEW VIT) chewable tablet Take 1 Tab by mouth daily Hold for 2 weeks 09/07/2015 2 potassium chloride (KLOR-CON) 20 mEq packet Take 20 mEq by mouth daily. 2 rizatriptan (MAXALT) 10 mg tablet Take 1 Tablet by mouth as needed for Migraine. May repeat in 2 hours if needed. Not to exceed to 8 days per month 12 Tablet 11 12/18/2021 2 SUMAtriptan Succinate 6 mg/0.5 mL cartridge Inject 6 mg into the skin as needed (migraine). Take as directed. 6 mL 11 02/21/2021 4 documented as of this encounter Discharge Disposition Disposition Code Departure Means Destination Home or Self Care documented in this encounter Plan of Treatment Upcoming Encounters Date Type Department Care Team (Late st Contact Info) Description 09/18/2024 11:00 EST Office Visit [facility] Bariatric Surgery - [place] [address] [place], [place] [address] Allen Thompson PA-C [address] [place] [address], Level 5 [place] [address] 10/26/2024 10:45 EST Telemedicine [facility] Neurology - S [place] 1 [place], [place] [address] Sulema Nicole CASE REPAIRER 1 [facility], Level 2 [place] [address] documented as of this encounter Procedures Procedure Name Priority Date/Time Associated Diagnosis Comments PAIN CLINIC [place] CERVICAL INJECTION Routine 02/01/2022 9:22 EDT documented in this encounter Results * PAIN CLINIC [place] CERVICAL INJECTION (02/01/2022 9:22 EDT) Narrative 02/01/2022 9:22 EDT This is a non-reportable exam. us Catalino Garrett MD IMG OTHER IMAGING ORDERABLES Fin al Result documented in this encounter Visit Diagnoses Not on filedocumented in this encounter Care Teams Solar Electric Installer Relationship Specialty Start Date End Date [facility], Mp [address] [place] [address] PCP - General 02/01/22 07/05/22 Juma Herrera MD [address] [facility] [place] [phone] 12/08/18 documented as of this encounter
--- OUTSIDE RECORDS SUMMARY | 2024-09-17 09:09 | XMS_ITS | Encounter Summary ---
Author Organization [facility] Address [address] [place] [address] Care Team Providers Care Space Engineer Name Role Phone Juma Herrera MD Unavailable [facility], Primary Care Provider [phone] Encounter Details Date Type Department Care Team (Late st Contact Info) Description 04/25/2022 Orders Only [facility] Sports Medicine Program - [address] [address] Jun Balbuena MD [address] [place] [address] Chronic right shoulder pain (Primary Dx) [...] Description 09/18/2024 11:00 EST Office Visit [facility] Bariatric Surgery [facility] [address] [place] [address] Allen Thompson PA-C [address] [facility], [facility] [address] [place] [address] 10/26/2024 10:45 EST Telemedicine [facility] Neurology - [address] [phone] Sulema Nicole NP [address] [place] [address] Level [address] [place] [phone] documented as of this encounter Visit Diagnoses Diagnosis Chronic right shoulder pain- Primary Pain in joint, shoulder region documented in this encounter Care Teams Space Engineer Relationship Specialty Start Date End Date [facility], Mp [address] [place] [address] PCP - General 02/01/22 07/05/22 Juma Herrera MD [address] [place] [address] 12/08/18 documented as of this encounter
--- OUTSIDE RECORDS SUMMARY | 2024-09-17 09:09 | XMS_ITS | Encounter Summary ---
Author Organization [facility] Address [address] [place] [address] Care Team Providers Care Potato Pancake Frier Name Role Phone Juma Herrera MD Unavailable [facility], Primary Care Provider [phone] Encounter Details Date Type Department Care Team (Late st Contact Info) Description 05/02/2022 Orders Only [facility] Sports Medicine Program - [address] [address] Jun Balbuena MD [address] [place] [phone] Chronic right shoulder pain (Primary Dx) [...] Visit [facility] Bariatric Surgery - [place] [address] [place] [address] Allen Thompson PA-C 111 [facility], Level 5 [place] [phone] 10/26/2024 10:45 EST Telemedicine [facility] Neurology - [facility] [place], [place] [address] Sulema Nicole NP [address] [place] [address], Level [address] [place] [phone] documented as of this encounter Results * POC MSK US SHOULDER (05/03/2022 16:06 EDT) Narrative [facility] POINT OF CARE - 05/03/2022 16:06 EDT This is a non-reportable exam. us Jun Balbuena MD IMG US POC ORDERABLES Rhoda l Result [facility] POINT OF CARE documented in this encounter Visit Diagnoses Diagnosis Chronic right shoulder pain- Primary Pain in joint, shoulder region Chronic right shoulder pain Pain in joint, shoulder region documented in this encounter Care Teams Potato Pancake Frier Relationship Specialty Start Date End Date [facility], Mp [address] [place] [address] PCP - General 02/01/22 07/05/22 Juma Herrera MD [address] [facility] [place] [address] 12/08/18 documented as of this encounter
--- OUTSIDE RECORDS SUMMARY | 2024-09-17 09:09 | XMS_ITS | Encounter Summary ---
Author Organization [facility] Address [address] [place] [address] Care Team Providers Care Carpet Cleaner Name Role Phone Juma Herrera MD Unavailable Curtis Burns MD Primary Care Provider [phone] Reason for Visit * Reason Onset Date Comments Medications Refill 11/20/2022 Aimovig 140 m g/ml SOAJ Encounter Details Date Type Department Care Team (Late st Contact Info) Description 11/20/[address] [facility] Neurology - [place] [address] [place] [phone] Kj Glroia MD PhD 1 [facility] 2 [place] [address] Medications Refill (Aimovig 140 mg/ml [...] 11/21/22 Date of last fill: 10/29/22 Pharmacy: [id number] Next appt: 12/17/2022 documented in this encounter Plan of Treatment Upcoming Encounters Date Type Department Care Team (Late st Contact Info) Description 09/18/2024 11:[address] [facility] Bariatric Surgery [facility] [address] [place] [address] Allen Thompson PA-C [address] [place], [place] [address], Level [address] [place] [address] 10/26/2024 10:[address] [facility] Neurology - S [address] [address] Sulema Nicole, QUARTER FOLDER 1 [facility], Level 2 [place] [address] documented as of this encounter Visit Diagnoses Not on filedocumented in this encounter Discontinued Medications Medication Sig Discontinue Reason Start Date End Da te erenumab-aooe (AIMOVIG AUTOINJECTOR) 140 mg/mL auto-injector Inject 1 mL into the skin every 28 days. Reorder 12/20/2021 11/20/2022 documented as of this encounter Care Teams Carpet Cleaner Relationship Specialty Start Date End Date Curtis Burns MD 26 [facility] [address] [place] [address] PCP - General Emergency Medicine 07/06/22 Juma Herrera MD [address] [facility] [place] [phone] 12/08/18 documented as of this encounter
--- OUTSIDE RECORDS SUMMARY | 2024-09-17 09:09 | XMS_ITS | Encounter Summary ---
Author Organization [facility] Address [address] [place] [address] Care Team Providers Care Refining Equipment Operator Name Role Phone Juma Herrera MD Unavailable [facility], Primary Care Provider [phone] Reason for Visit * Reason Comments Neck Pain bilateral neck pain radiating down right arm * Prior Authorization (Routine) - Specialty Report Received Specialty Diagnoses / Procedures Referred By Wili mireles Referred To Contact Pain Medicine Diagnoses Other cervical disc degeneration, unspecified cervical region Sacroiliitis, not elsewhere classified ([facility]) repeat cervical epidural steroid injection at C6C7 Procedures NV NJX DX/THER SBST INTRLMNR CRV/THRC W/IMG GDN PROCEDURE MEDIUM [facility] Interventional Pain 62 [facility] [place] [address] Phone: tel: fax: Catalino Garrett MD [address] [facility] [address] [place] [address] Phone: tel: fax: Referral ID Status Reason Start Date Expiration Date V isits Requested Visits Authorized [id number] Specialty Report Received 1 1 Encounter Details Date Type Department Care Team (Latest Contact Info) Description 05/17/2022 8:45 EDT Procedure visit [facility] Interventional Pain [address] [place] [address] Catalino Garrett MD [address] [place] [address] Radiculopathy, cervical region (Primary Dx) [...] Reading Time Taken Comments Blood Pressure 125/92 05/17/2022 0927 EDT Pulse 83 05/17/2022 0927 EDT Temperature 35.5 ??C (95.9 ??F) 05/17/2022 0826 EDT Respiratory Rate 18 05/17/2022 0927 EDT Oxygen Saturation 100% 05/17/2022 0826 EDT Inhaled Oxygen Concentration - - Weight [...] 8:45 EDT [facility] [place] [address] [place], [place] [address] Patient Instructions You have had your cervical [...] Notes * Shantelle Piedra RN - 05/17/2022 0845 EDT [facility] Rooming Note Does patient have a [employer] Consultant? yes Is patient NPO? (Solids since midnight [...] Rooney : 1975 Date of Service: 05/17/2022 President Consumer Electronics Company: Gerry MEHTA Home Improvement Contractor: none Procedure: Therapeutic cervical epidural steroid injections [...] Info) Description 09/18/2024 11:00 EST Office Visit [facility] Bariatric Surgery - [address] [address] Allen Thompson PA-C 111 [facility] 5 [place] [phone] 10/26/2024 10:45 EST Telemedicine [facility] Neurology - [address] [phone] Sulema Nicole NP [address] [place] [address] Level 2 [place] [phone] documented as of this encounter Visit Diagnoses [...] documented as of this encounter Care Teams Refining Equipment Operator Relationship Specialty Start Date End Date [facility], Mp [address] [place] [address] PCP - General 02/01/22 07/05/22 Juma Herrera MD [address] [facility] [place] [phone] 12/08/18 documented as of this encounter
--- OUTSIDE RECORDS SUMMARY | 2024-09-17 09:09 | XMS_ITS | Encounter Summary ---
Author Organization [facility] Address [address] [place] [address] Care Team Providers Care Test Operator Name Role Phone Juma Herrera MD Unavailable Curtis Burns MD Primary Care Provider [phone] Reason for Visit * Reason Onset Date Comments Appointment Related 08/28/2022 Encounter Details Date Type Department Care Team (Late st Contact Info) Description 08/28/2022 Telephone [facility] Interventional Pain [address] [place] [address] Catalino Garrett MD 62 [facility] [address] [place] [address] Appointment Related Social History Tobacco [...] is Muna Rooney. My phone number is [phone] my birthday is 1975. Someone called today [...] that would be great. Again Muna Rooney [phone]. Birthday 1975 and my voicemail is not full any more. Thank you have a great day. * Telephone Encounter - Saniya Larsen MA - 08/28/2022 1043 EST JULIAN contacted patient as a reminder about the following items: 09/06 -Patient must have a courtesy car driver -Patient needs to arrive 45 minutes [...] understanding and is provided clinic phone number [phone] for any additional questions. documented in this encounter Plan of Treatment Upcoming Encounters Date Type Department Care Team (Late st Contact Info) Description 09/18/2024 11:00 EST Office Visit [facility] Bariatric Surgery - [address] [place], [place] [address] Allen Thompson PA-C 111 [facility] 5 [place] [phone] 10/26/2024 10:45 EST Telemedicine [facility] Neurology - S [address] [address] Sulema Nicole MOLDING SANDER 1 [facility] Level 2 [place] [address] documented as of this encounter Visit Diagnoses Not on filedocumented in this encounter Care Teams Test Operator Relationship Specialty Start Date End Date Curtis Burns MD 26 [facility] [address] [place], [place] [address] PCP - General Emergency Medicine 07/06/22 Juma Herrera MD [address] [facility] [place] [phone] 12/08/18 documented as of this encounter
--- OUTSIDE RECORDS SUMMARY | 2024-09-17 09:09 | XMS_ITS | Encounter Summary ---
Author Organization [facility] Address [address] [place] [address] Care Team Providers Care Assistant Service Manager Name Role Phone Juma Herrera MD Unavailable [facility], Primary Care Provider [phone] Reason for Visit * Reason Onset Date Comments Appointment Related 02/28/2022 Encounter Details Date Type Department Care Team (Late st Contact Info) Description 02/28/2022 Telephone [facility] Sports Medicine Program - [address] [address] Jun Balubena MD [address] [place] [address] Appointment Related Social History Tobacco [...] Description 09/18/2024 11:00 EST Office Visit [facility] Bariatric Surgery [facility] [address] [place], [place] [address] Allen Thompson PA-C 111 [facility] 5 [place] [address] 10/26/2024 10:45 EST Telemedicine [facility] Neurology - S [address] [phone] Sulema Nicole, GIULIA [address] [place] [address] 2 [place] [address] documented as of this encounter Visit Diagnoses Not on filedocumented in this encounter Care Teams Assistant Service Manager Relationship Specialty Start Date End Date [facility], Mp [address] [place] [address] PCP - General 02/01/22 07/05/22 Juma Herrera MD [address] [facility] [place] [address] 12/08/18 documented as of this encounter
--- OUTSIDE RECORDS SUMMARY | 2024-09-17 09:09 | XMS_ITS | Encounter Summary ---
Author Organization [facility] Address [address] [place] [address] Care Team Providers Care Framing Consultant Name Role Phone Juma Herrera MD Unavailable Curtis Burns MD Primary Care Provider [phone] Reason for Visit * (Routine/Next Available) - Receiving Office to Obtain Authorization Specialty Diagnoses / Procedures Referred By Wili mireles Referred To Contact Procedures XR OUTSIDE IMAGES LUMBAR SPINE Imaging, External Referral ID Status Reason Start Date Expiration Date Visits Requested Visits Authorized [id number] Receiving Office to Obtain Authorization 11/23/2022 1 1 Encounter Details Date Type Department Care Team (Latest Contact Info) Description 11/07/2022 Hospital Encounter [facility] Center [place] [...] Info) Description 09/18/2024 11:00 EST Office Visit [facility] Bariatric Surgery [facility] 353 [place] [address] Allen Thompson, PALizettC 111 [facility] [place] [facility] 5 [place] [phone] 10/26/2024 10:45 EST Telemedicine [facility] Neurology - [address] [address] Sulema Nicole NP [address] [place] [address] Level 2 [place] [phone] documented as of this encounter Procedures Procedure Name Priority Date/Time Associated Diagnosis Comments XR OUTSIDE IMAGES LUMBAR SPINE Routine 11/07/2022 15:49 EST documented in this encounter Results * XR OUTSIDE IMAGES LUMBAR SPINE (11/07/2022 15:49 EST) Narrative 11/23/2022 15:50 EDT This is a non-reportable exam. us External Imaging IMG OTHER IMAGING ORDERABLES Fi nal Result documented in this encounter Visit Diagnoses Not on filedocumented in this encounter Care Teams Framing Consultant Relationship Specialty Start Date End Date Curtis Burns MD 26 [facility] [address] [place] [address] PCP - General Emergency Medicine 07/06/22 Juma Herrera MD [address] [place] [address] 12/08/18 documented as of this encounter
--- OUTSIDE RECORDS SUMMARY | 2024-09-17 09:09 | XMS_ITS | Encounter Summary ---
Author Organization [facility] Address [address] [place] [address] Care Team Providers Care Sonar Watchstander Name Role Phone Juma Herrera MD Unavailable [facility] Primary Care Provider [phone] Encounter Details Date Type Department Care Team (Late st Contact Info) Description 05/10/2022 Specialty Pharmacy [facility] Ambulatory Pharmacy - Main [place] [address] [place], [place] [phone] Kelechi Panda [facility] Social History Tobacco Use Types Packs/Day Years [...] documented in this encounter Progress Notes * Verena Irving - 05/10/2022 1347 EDT [facility] Specialty Pharmacy Delivery Information Hours: Saturday-Saturday 8:30am - 5:00pm *Pharmacist available reproductive surgeon 25/03 Delivery Service: FedEx Delivery Window: None Specified Date of Delivery: Saturday05/16/22 Tracking # : [id number] documented in this encounter Plan of Treatment Upcoming Encounters Date Type Department Care Team (Late st Contact Info) Description 09/18/2024 11:00 EST Office Visit [facility] Bariatric Surgery [address] [address] Allen Thompson, PA-C [address] [place] [address] 5 [place] [phone] 10/26/2024 10:45 EST Telemedicine [facility] Neurology - [address] [phone] Sulema Nicole NP [address] [place] [address] 2 [place] [phone] documented as of this encounter Visit Diagnoses Not on filedocumented in this encounter Care Teams Sonar Watchstander Relationship Specialty Start Date End Date [facility], Mp [address] [place] [address] PCP - General 02/01/22 07/05/22 Juma Herrera MD [address] [facility] [place] [phone] 12/08/18 documented as of this encounter
--- OUTSIDE RECORDS SUMMARY | 2024-09-17 09:09 | XMS_ITS | Encounter Summary ---
Author Organization [facility] Address [address] [place] [address] Care Team Providers Care Hand Welt Butter Name Role Phone Juma Herrera MD Unavailable [facility], Primary Care Provider [phone] Encounter Details Date Type Department Care Team (Latest Contact Info) Description 05/17/2022 7:33 EDT - 05/17/2022 23:59 EDT Hospital Encounter [facility] Xray [address] [place], [place] [phone] Discharge Disposition: Home or Self Care Social [...] mouth daily. 90 capsule 3 09/22/2021 3 SUMAtriptan Succinate 6 mg/0.5 mL cartridge Inject [...] Description 09/18/2024 11:00 EST Office Visit [facility] Bariatric Surgery [facility] 353 [place], [place] [address] Allen Thompson PA-C 111 [facility] 5 [place] [phone] 10/26/2024 10:45 EST Telemedicine [facility] Neurology - [address] [phone] Sulema Nicole NP [address] [place] [address] 2 [place] [phone] documented as of this encounter Procedures Procedure Name Priority Date/Time Associated Diagnosis Comments PAIN CLINIC [place] CERVICAL INJECTION Routine 05/17/2022 9:26 EDT documented in this encounter Results * PAIN CLINIC FL CERVICAL INJECTION (05/17/2022 9:26 EDT) Narrative 05/17/2022 9:26 EDT This is a non-reportable exam. us Catalino Garrett MD IMG OTHER IMAGING ORDERABLES Fin al Result documented in this encounter Visit Diagnoses Not on filedocumented in this encounter Care Teams Hand Welt Butter Relationship Specialty Start Date End Date [facility], Mp [address] [place] [address] PCP - General 02/01/22 07/05/22 Juma Herrera MD [address] [facility] [phone] 12/08/18 documented as of this encounter
--- OUTSIDE RECORDS SUMMARY | 2024-09-17 09:09 | XMS_ITS | Encounter Summary ---
Author Organization [facility] Address [address] [place] [address] Care Team Providers Care Reporter Anchor Name Role Phone Juma Herrera MD Unavailable [facility] Primary Care Provider [phone] Encounter Details Date Type Department Care Team (Late st Contact Info) Description 04/11/2022 Specialty Pharmacy [facility] Ambulatory Pharmacy - Main [place] [address] [place], [place] [phone] Kelechi Panda [facility] Social History Tobacco Use Types Packs/Day Years [...] documented in this encounter Progress Notes * Maki Jiménez - 04/11/2022 1306 EDT [facility] Specialty Pharmacy Delivery Information Hours: Saturday-Saturday 8:30am - 5:00pm *Pharmacist available alternative education teacher 25/03 Delivery Service: FedEx Delivery Window: None Specified Date of Delivery: 04/19/22 Tracking # : [id number] documented in this encounter Plan of Treatment Upcoming Encounters Date Type Department Care Team (Late st Contact Info) Description 09/18/2024 11:00 EST Office Visit [facility] Bariatric Surgery - [address] [address] Allen Thompson PA-C [address] [place] [address] 5 [place] [phone] 10/26/2024 10:45 EST Telemedicine [facility] Neurology - [address] [phone] Sulema Nicole NP [address] [place] [address] 2 [place] [phone] documented as of this encounter Visit Diagnoses Not on filedocumented in this encounter Care Teams Reporter Anchor Relationship Specialty Start Date End Date [facility], Mp [address] [place] [address] PCP - General 02/01/22 07/05/22 Juma Herrera MD [address] [facility] [place] [phone] 12/08/18 documented as of this encounter
--- OUTSIDE RECORDS SUMMARY | 2024-09-17 09:09 | XMS_ITS | Encounter Summary ---
Author Organization [facility] Address [address] [place] [address] Care Team Providers Care Lodge Officer Name Role Phone Juma Herrera MD Unavailable Shonda Sánchez CUT OFF SAW TENDER METAL Primary Care Provider [phone] Encounter Details Date Type Department Care Team (Late st Contact Info) Description 01/17/2022 Specialty Pharmacy [facility] Ambulatory [facility]acy - [address] [id number] Kelechi Panda [facility] Social History Tobacco [...] Info) Description 09/18/2024 11:00 EST Office Visit [facility] Bariatric Surgery [address] [address] Allen Thompson, PALizettC 111 [facility] 5 [place] [phone] 10/26/2024 10:45 EST Telemedicine [facility] Neurology - [address] [phone] Sulema Nicole NP 1 [facility] 2 [place] [phone] documented as of this encounter Visit Diagnoses Not on filedocumented in this encounter Care Teams Lodge Officer Relationship Specialty Start Date End Date Shonda Sánchez NP [address] [place] [address] [address] [place] [phone] PCP - General 03/14/21 01/31/22 Juma Herrera MD [address] [facility] [place] [address] (work) 12/08/18 documented as of this encounter
--- OUTSIDE RECORDS SUMMARY | 2024-09-17 09:09 | XMS_ITS | Encounter Summary ---
Author Organization [facility] Address [address] [place] [address] Care Team Providers Care Autism Motor Specialist Name Role Phone Juma Herrera MD Unavailable Curtis Burns MD Primary Care Provider [phone] Reason for Visit * Reason Comments Neck Pain Bilateral * Prior Authorization (Routine) - Specialty Report Received Specialty Diagnoses / Procedures Referred By Wili mireles Referred To Contact Pain Medicine Diagnoses Radiculopathy, cervical region Repeat YSABEL at C6-C7 Procedures [place] NJX DX/THER SBST INTRLMNR CRV/THRC W/IMG GDN PROCEDURE MEDIUM [facility] Interventional Pain [address] [place] [address] Phone: tel: fax: Catalino Garrett MD [address] [place] [address] Phone: tel: fax: Referral ID Status Reason Start Date Expiration Date V isits Requested Visits Authorized [id number] Specialty Report Received 1 1 Encounter Details Date Type Department Care Team (Latest Contact Info) Description 09/06/2022 11:00 EST Procedure visit [facility] Interventional Pain [address] [place] [address] Catalino Garrett MD 62 [facility] [address] [place] [phone] Radiculopathy, cervical region (Primary Dx) Social [...] 09/06/2022 11:00 EST [facility] [address] [address] Patient Instructions You have had your cervical [...] Rooming Note Does patient have a Medical Delivery Driver? yes Is patient NPO? (Solids since [...] Rooney : 1975 Date of Service: 09/10/2022 Compliance Spec: Gerry MEHTA Squash Centre Manager: none Procedure: Therapeutic cervical epidural steroid [...] Office Visit [facility] Bariatric Surgery [place] [address] [place] [address] Allen Thompson PA-C 111 [facility], Level 5 [place] [phone] 10/26/2024 10:45 EST Telemedicine [facility] Neurology - [address] [phone] Sulema Nicole NP [address] [place] [address], Level 2 [place] [phone] documented as of this encounter Visit Diagnoses [...] mL documented in this encounter Care Teams Autism Motor Specialist Relationship Specialty Start Date End Date Curtis Burns MD 26 [facility] [address] [place] [address] PCP - General Emergency Medicine 07/06/22 Juma Herrera MD [address] [facility] [place] [phone] 12/08/18 documented as of this encounter
--- OUTSIDE RECORDS SUMMARY | 2024-09-17 09:09 | XMS_ITS | Encounter Summary ---
Author Organization [facility] Address [address] [place] [address] Care Team Providers Care Supply Chain Systems Manager Name Role Phone Juma Herrera MD Unavailable Curtis Burns MD Primary Care Provider [phone] Encounter Details Date Type Department Care Team (Late st Contact Info) Description 08/28/2022 Specialty Pharmacy [facility] Ambulatory Pharmacy - Main [address] [phone] Jj Verduzco, [facility] Social History Tobacco Use Types Packs/Day Years [...] documented in this encounter Progress Notes * Ye Menezes - 08/28/2022 1640 EST [facility] Specialty Pharmacy Delivery Information Hours: Saturday-Saturday 8:30am - 5:00pm *Pharmacist available client integration manager 25/03 Delivery Service: FedEx Delivery Window: None Specified Date of Delivery: 09/05/22 Tracking # : [id number] documented in this encounter Plan of Treatment Upcoming Encounters Date Type Department Care Team (Late st Contact Info) Description 09/18/2024 11:00 EST Office Visit [facility] Bariatric Surgery [address] [address] Allen Thompson, PA-C [address] [place] [address] 5 [place] [phone] 10/26/2024 10:45 EST Telemedicine [facility] Neurology - S [place] 1 [place] [address] Sulema Nicole NP [address] [place] [address] 2 [place] [phone] documented as of this encounter Visit Diagnoses Not on filedocumented in this encounter Care Teams Supply Chain Systems Manager Relationship Specialty Start Date End Date Curtis Burns MD 26 [facility] [address] [place] [address] PCP - General Emergency Medicine 07/06/22 Juma Herrera MD [address] [facility] [place] [phone] 12/08/18 documented as of this encounter
--- OUTSIDE RECORDS SUMMARY | 2024-09-17 09:09 | XMS_ITS | Encounter Summary ---
Author Organization [facility] Address [address] [place] [address] Care Team Providers Care Track Laborer Name Role Phone Juma Herrera MD Unavailable [facility], Primary Care Provider [phone] Reason for Visit * Reason Comments Injections * Prior Authorization (See Order Priority) - Order Cancelled Specialty Diagnoses / Procedures Referred By Wili mireles Referred To Contact Orthopedic Surgery Diagnoses Chronic right shoulder pain Jun Balbuena MD Phone: tel: fax: [facility] - [place] [address] Phone: tel: fax: Referral ID Status Reason Start Date Expiration Date Visits Requested Visits Authorized [id number] Order Cancelled Specialty Services Required 04/25/2022 1 1 Encounter Details Date Type Department Care Team (Latest Contact Info) Description 05/03/2022 14:40 EDT Procedure visit [facility] - [place] [address] Jun Balbuena MD [address] [place] [phone] Impingement syndrome of shoulder, right (Primary [...] EST Office Visit [facility] Bariatric Surgery - [place] [address] [place] [address] Allen Thompson PA-C 111 [facility], Level 5 [place] [phone] 10/26/2024 10:45 EST Telemedicine [facility] Neurology - S [place] 1 [place] [address] Sulema Nicole NP [address] [place] [address], Level 2 [place] [address] documented as of this encounter Procedures Procedure Name Priority Date/Time Associated Diagnosis Comments MEDICATION ONLY INJECTION Routine 05/03/2022 14:40 EDT Impingement syndrome of shoulder, right documented in this encounter Results * Medication Only Injection (05/03/2022 14:40 EDT) Narrative [facility] POINT OF CARE - 05/03/2022 14:40 EDT Jun Balbuena MD ? 05/03/2022 15:22 Medication Only Injection on 05/03/2022 14:40 Medications: 80 mg triamcinolone acetonide 40 mg/mL; 3 mL lidocaine 20 mg/mL (2 %); 3 mL bupivacaine (PF) 0.5% Jun Balbuena MD PROCEDURE/MINOR SURGICAL O RDERABLES Final Result [facility] POINT OF CARE documented in this encounter [...] at 1440, Until Karen 05/03/22 at 1440, RoutineIndications:Impingement syndrome of shoulder, right Given 05/03/2022 14:40 EDT 3 mL lidocaine 20 mg/mL (2 %) injection 3 mL 3 mL, other, Once PRN Procedure, 1 dose, Starting on Karen 05/03/22 at 1440, Until Karen 05/03/22 at 1440, RoutineIndications:Impingement syndrome of shoulder, right Given 05/03/2022 14:40 EDT 3 mL triamcinolone acetonide (KENALOG-40) injection 80 mg 80 mg, other, Once PRN Procedure, 1 dose, Starting on Karen 05/03/22 at 1440, Until Karen 05/03/22 at 1440, RoutineIndications:Impingement syndrome of shoulder, right Given 05/03/2022 14:40 EDT 80 mg documented in this encounter Care Teams Track Laborer Relationship Specialty Start Date End Date [facility], Mp [address] [place] [address] PCP - General 02/01/22 07/05/22 Juma Herrera MD [address] [facility] [address] 12/08/18 documented as of this encounter
--- OUTSIDE RECORDS SUMMARY | 2024-09-17 09:09 | XMS_ITS | Encounter Summary ---
Author Organization [facility] Address [address] [place] [address] Care Team Providers Care Chemical Worker Name Role Phone Juma Herrera MD Unavailable Curtis Burns MD Primary Care Provider [phone] Reason for Visit * Reason Onset Date Comments Medications Refill 09/26/2022 Encounter Details Date Type Department Care Team (Late st Contact Info) Description 09/26/2022 Telephone [facility] Neurology - S [place] [address] [place] [phone] Kj Gloria MD PhD 1 [facility] 2 [phone] Medications Refill Social History Tobacco Use [...] EST Nina Hernandez documented in this encounter Miscellaneous Notes * Telephone Encounter - Verena Irving - 09/26/2022 1245 EST SPRX Request for PA/Funding Drug Name: Aimovig 140mg Next Injection Date: Call left for PT, based off adherence, 2/3. RX Insurance: [employer] Qty Remaining: Unknown PA Required: Yes Funding Needed: No documented in this encounter Plan of Treatment Upcoming Encounters Date Type Department Care Team (Late st Contact Info) Description 09/18/2024 11:00 EST Office Visit [facility] Bariatric Surgery [facility] [address] [place], [place] [address] Allen Thompson, PA-C 111 [facility], [facility] 5 [phone] 10/26/2024 10:45 EST Telemedicine [facility] Neurology - [address] [phone] Sulema Nicole, FUR JOINER [address] [place] [address] Level 2 [phone] documented as of this encounter Visit Diagnoses Not on filedocumented in this encounter Care Teams Chemical Worker Relationship Specialty Start Date End Date Curtis Burns MD 26 [facility] [address] [place] [address] PCP - General Emergency Medicine 07/06/22 Juma Herrera MD [address] [facility] [place] [address] 12/08/18 documented as of this encounter
--- OUTSIDE RECORDS SUMMARY | 2024-09-17 09:09 | XMS_ITS | Encounter Summary ---
Author Organization [facility] Address [address] [place] [address] Care Team Providers Care Art Sales Consultant Name Role Phone Juma Herrera MD Unavailable [facility] Primary Care Provider [phone] Reason for Visit * Reason Onset Date Comments Appointment Related 04/30/2022 Encounter Details Date Type Department Care Team (Late st Contact Info) Description 04/30/2022 Telephone [facility] Interventional Pain [address] [place] [address] Catalino Garrett MD 62 [facility] [address] [place] [address] Appointment Related Social History Tobacco [...] encounter Miscellaneous Notes * Telephone Encounter - Sadni Alvarez MA - 04/30/2022 0929 EDT JULIAN attempted to contact patient as reminder about stopping her Multi Vit 7 days ahead of her procedure . LM to return call. documented in this encounter Plan of Treatment Upcoming Encounters Date Type Department Care Team (Late st Contact Info) Description 09/18/2024 11:00 EST Office Visit [facility] Bariatric Surgery - [place] [address] [place] [address] Allen Thompson PA-C 111 [facility] 5 [place] [phone] 10/26/2024 10:45 EST Telemedicine [facility] Neurology - [address] 507311 Sulema Nicole, GIULIA [address] [place] [address] 2 [place] [phone] documented as of this encounter Visit Diagnoses Not on filedocumented in this encounter Care Teams Art Sales Consultant Relationship Specialty Start Date End Date [facility] [address] [place] [address] PCP - General 02/01/22 07/05/22 Juma Herrera MD 24[address] [facility] [place] [phone] 12/08/18 documented as of this encounter
--- OUTSIDE RECORDS SUMMARY | 2024-09-17 09:09 | XMS_ITS | Encounter Summary ---
Author Organization [facility] Address [address] [place] [address] Care Team Providers Care Concaving Machine Operator Name Role Phone Juma Herrera MD Unavailable Curtis Burns MD Primary Care Provider [phone] Encounter Details Date Type Department Care Team (Latest Contact Info) Description 09/06/2022 7:44 EST - 09/06/2022 23:59 EST Hospital Encounter [facility] Xray [address] [place] [address] Discharge Disposition: Home or Self [...] [facility] Bariatric Surgery [address] 535[address] Allen Thompson PA-C 111 [facility] 5 [place] [phone] 10/26/2024 10:45 EST Telemedicine [facility] Neurology - S [address] [phone] Sluema Nicole NP [address] [place] [address] 2 [place] [phone] documented as of this encounter Procedures Procedure Name Priority Date/Time Associated Diagnosis Comments [facility] [place] CERVICAL INJECTION Routine 09/06/2022 11:43 EST documented in this encounter Results * [facility] [place] CERVICAL INJECTION (09/06/2022 11:43 EST) Narrative 09/06/2022 11:44 EST This is a non-reportable exam. us Catalino Garrett MD IMG OTHER IMAGING ORDERABLES Fin al Result documented in this encounter Visit Diagnoses Not on filedocumented in this encounter Care Teams Concaving Machine Operator Relationship Specialty Start Date End Date Curtis Burns MD 26 [facility] [address] [place] [address] PCP - General Emergency Medicine 07/06/22 Juma Herrera MD [address] [facility] [place] [phone] 12/08/18 documented as of this encounter
--- OUTSIDE RECORDS SUMMARY | 2024-09-17 09:09 | XMS_ITS | Encounter Summary ---
Author Organization [facility] Address [address] [place] [address] Care Team Providers Care Truck Assembler Name Role Phone Juma Herrera MD Unavailable Curtis Burns MD Primary Care Provider [phone] Reason for Referral * Consult (Urgent) - Authorized Specialty Diagnoses / Procedures Referred By Contac t Referred To Contact Pharmacy Diagnoses Chronic migraine without aura without status migrainosus, not intractable Kj Gloria MD PhD Phone: tel: fax: [facility] Ambulatory Pharmacy - Main [address] [address] Phone: tel: fax: Referral ID Status Reason Start Date Expiration Date Visits Requested Visits Authorized [id number] Authorized Specialty Services Required 09/26/2022 1 1 [...] Encounter Details Date Type Department Care Team ([facility] Contact Info) Description 09/26/2022 Telephone [facility] Neurology - S [address] [address] Kj Gloria MD PhD 1 [facility], Level 2 [place] [phone] Prior Auth, Medication (Re-auth Aimovig 140mg/ml inject [...] encounter Miscellaneous Notes * Telephone Encounter - Gracia Lowissa - 09/26/2022 1408 EST Prior Authorization Approval Medication: Aimovig 140mg/ml inject 1 ml subcutaneous q 30 days. Insurance Name: [employer] Insurance Type: Medicare Part D Approval Dates: 09/26/2022-09/01/2023 Authorization Number: [id number] Benefits Information: [facility] able to fill? : yes Required Pharmacy: Additional Info/Other Notes: Patient is enrolled in our SPRX Prior Authorization Submission Process - Urgent Medication:Aimovig 140mg/ml inject 1 ml subcutaneous q 30 days. Insurance: [employer] Insurance Type: Medicare Part D Date PA Request Received: 09/26/2022 PA Submission Date: 09/26/2022 [facility] Srivastava: [id number] Notes: Submitted by: TRISTA Phone: [phone] documented in this encounter Plan of Treatment Upcoming Encounters Date Type Department Care Team (Late st Contact Info) Description 09/18/2024 11:00 EST Office Visit [facility] Bariatric Surgery - [place] [address] [address] [place], [place] [address] Allen Thompson, PA-C [address] [facility] 5 [place] [phone] 10/26/2024 10:45 EST Telemedicine [facility] Neurology - S [address] 318141 Sulema Nicole NP [address] [place] [address] 2 [place] [phone] Scheduled Referrals Name Type Priority Associated Diagnoses [...] migrainosus documented in this encounter Care Teams Truck Assembler Relationship Specialty Start Date End Date Curtis Burns MD 26 [facility] [address] [place] [address] PCP - General Emergency Medicine 07/06/22 Juma Herrera MD [address] [facility] [place] [phone] 12/08/18 documented as of this encounter
--- OUTSIDE RECORDS SUMMARY | 2024-09-17 09:09 | XMS_ITS | Encounter Summary ---
Author Organization [facility] Address [address] [place] [address] Care Team Providers Care Imaging Analyst Name Role Phone Juma Herrera MD Unavailable [facility] Primary Care Provider [phone] Encounter Details Date Type Department Care Team (Late st Contact Info) Description 03/14/2022 Specialty Pharmacy [facility] Ambulatory Pharmacy - Main [place] [address] [place], [place] [phone] Kelechi Panda [facility] Social History Tobacco Use Types Packs/Day [...] Info) Description 09/18/2024 11:00 EST Office Visit [facility] Bariatric Surgery [facility] 353 [place] [address] Allen Thompson, PA-C 111 [facility] 5 [place] [phone] 10/26/2024 10:45 EST Telemedicine [facility] Neurology - [address] 650571 Sulema Nicole NP 1 [facility] 2 [place] [phone] documented as of this encounter Visit Diagnoses Not on filedocumented in this encounter Care Teams Imaging Analyst Relationship Specialty Start Date End Date [facility], [place] [address] [place] [address] PCP - General 02/01/22 07/05/22 Juma Herrera MD [address] [facility] [place] [place] [address] 12/08/18 documented as of this encounter
--- OUTSIDE RECORDS SUMMARY | 2024-09-17 09:09 | XMS_ITS | Encounter Summary ---
Author Organization [facility] Address [address] [place] [address] Care Team Providers Care Energy Conservation Representative Name Role Phone Juma Herrera MD Unavailable [facility] Primary Care Provider [phone] Encounter Details Date Type Department Care Team (Late st Contact Info) Description 02/13/2022 Specialty Pharmacy [facility] Ambulatory Pharmacy - Main [place] [address] [place], [place] [phone] Kelechi Panda [facility] Social History Tobacco Use Types Packs/Day [...] Description 09/18/2024 11:00 EST Office Visit [facility] Bariatric Surgery [facility] 353 [place] [address] Allen Thompson, PA-C 111 [facility] 5 [place] [phone] 10/26/2024 10:45 EST Telemedicine [facility] Neurology - [address] [address] Sulema Nicole NP 1 [facility] 2 [place] [phone] documented as of this encounter Visit Diagnoses Not on filedocumented in this encounter Care Teams Energy Conservation Representative Relationship Specialty Start Date End Date [facility], [place]p [address] [place] [address] PCP - General 02/01/22 07/05/22 Juma Herrera MD [address] [facility] [place] [address] 12/08/18 documented as of this encounter
--- OUTSIDE RECORDS SUMMARY | 2024-09-17 09:09 | XMS_ITS | Encounter Summary ---
Author Organization [facility] Address [address] [place] [address] Care Team Providers Care Company Dancer Name Role Phone Juma Herrera MD Unavailable [facility] Primary Care Provider [phone] Encounter Details Date Type Department Care Team (Late st Contact Info) Description 06/06/2022 Specialty Pharmacy [facility] Ambulatory Pharmacy - Main [place] 111 [place], [place] [phone] Yuri Montgomery, [facility] Social History Tobacco Use Types Packs/Day Years [...] documented in this encounter Progress Notes * Tesha Blanca - 06/06/2022 1545 EDT [facility] Specialty Pharmacy Delivery Information Hours: Saturday-Saturday 8:30am - 5:00pm *Pharmacist available bus transportation manager 25/03 Delivery Service: FedEx Delivery Window: None Specified Date of Delivery: 06/14/22 Tracking # : [id number] documented in this encounter Plan of Treatment Upcoming Encounters Date Type Department Care Team (Late st Contact Info) Description 09/18/2024 11:00 EST Office Visit [facility] Bariatric Surgery [address] [address] Allen Thompson, PA-C [address] [place] [address] 5 [place] [phone] 10/26/2024 10:45 EST Telemedicine [facility] Neurology - S [address] [phone] Sulema Nicole NP [address] [place] [address] 2 [place] [phone] documented as of this encounter Visit Diagnoses Not on filedocumented in this encounter Care Teams Company Dancer Relationship Specialty Start Date End Date [facility] [address] [place] [address] PCP - General 02/01/22 07/05/22 Juma Herrera MD [address] [place] [phone] 12/08/18 documented as of this encounter
--- OUTSIDE RECORDS SUMMARY | 2024-09-17 09:09 | XMS_ITS | Encounter Summary ---
Author Organization [facility] Address [address] [place] [address] Care Team Providers Care Back Shoe Worker Name Role Phone Juma Herrera MD Unavailable Curtis Burns MD Primary Care Provider [phone] Encounter Details Date Type Department Care Team (Late st Contact Info) Description 10/23/2022 Specialty Pharmacy [facility] Ambulatory Pharmacy - Main [address] [phone] Jj Verduzco, [facility] Social History Tobacco Use Types Packs/Day [...] [facility] B[facility] Surgery - [place] 353 [place] [address] Allen Thompson PA-C 111 [facility] Level 5 [place] [address] 10/26/2024 10:45 EST Telemedicine [facility] Neurology - S [address] [address] Sulema Nicole NP [address] [place] [address] 2 [place] [phone] documented as of this encounter Visit Diagnoses Not on filedocumented in this encounter Care Teams Back Shoe Worker Relationship Specialty Start Date End Date Curtis Burns MD 26 [facility] [address] [place] [address] PCP - General Emergency Medicine 07/06/22 Juma Herrera MD 24[address] [facility] [place] [phone] 12/08/18 documented as of this encounter
--- OUTSIDE RECORDS SUMMARY | 2024-09-17 09:09 | XMS_ITS | Encounter Summary ---
Author Organization [facility] Address [address] [place] [address] Care Team Providers Care Tool Liaison Name Role Phone Juma Herrera MD Unavailable [facility], Primary Care Provider [phone] Reason for Visit * Reason Comments Follow-up Telemedicine Video Visit Encounter Details Date Type Department Care Team (Late st Contact Info) Description 06/25/2022 11:00 EDT Telemedicine [facility] Neurology - [place] [address] [place] [phone] Kj Gloria MD PhD 1 [facility] 2 [place] [address] Chronic migraine without aura without [...] of Assessment Author No 09/05/2015 12:00 Khoa Peñlaoza * Do you have serious difficulty walking [...] Entry Date Author Yes 09/15/2018 7:52 NATALY Hernandez Nina an documented in this encounter Progress Notes * Kj Gloria MD PhD - 06/25/2022 1100 EDT Neurology Consult Follow Up Note Date of Service: 06/25/2022 PCP: Serjio [facility] Follow up for: migraine Chief Complaint Patient [...] : home The location of the provider: [place] The following people and their roles were [...] was subsequently evaluated at the ED in [facility]. Over the past 3 months, she has [...] Description 09/18/2024 11:00 EST Office Visit [facility] Bariatric Surgery - [place] [address] [place] [address] Allen Thompson PA-C [address] [place] [address], Level 5 [place] [address] 10/26/2024 10:45 EST Telemedicine [facility] Neurology - S [place] 1 [place] [address] Sulema Nicole, DRY PLACER MACHINE OPERATOR 1 [facility], Level 2 [place] [address] documented as of this encounter Visit Diagnoses Diagnosis Chronic migraine without aura without status migrainosus, not intractable- Primary Chronic migraine without aura, without mention of intractable migraine without mention of status migrainosus documented in this encounter Care Teams Tool Liaison Relationship Specialty Start Date End Date [facility], Mp [address] [place] [address] PCP - General 02/01/22 07/05/22 Juma Herrera MD [address] [facility] [place] [address] 12/08/18 documented as of this encounter
--- OUTSIDE RECORDS SUMMARY | 2024-09-17 09:09 | XMS_ITS | Encounter Summary ---
Author Organization [facility] Address [address] [place] [address] Care Team Providers Care Military Nurse Name Role Phone Juma Herrera MD Unavailable Curtis Burns MD Primary Care Provider [phone] Encounter Details Date Type Department Care Team (Late st Contact Info) Description 08/02/2022 Specialty Pharmacy [facility] Ambulatory Pharmacy - Main [address] [phone] Jj Verduzco, [facility] Social History [...] documented in this encounter Progress Notes * Ermelinda Mishra - 08/02/2022 0848 EST [facility] Specialty Pharmacy Delivery Information Hours: Saturday-Saturday 8:30am - 5:00pm *Pharmacist available paraprofessional aide teacher 25/03 Delivery Service: [employer] Delivery Window: None Specified Date of Delivery: 08/08/22 Tracking # : [id number] documented in this encounter Plan of Treatment Upcoming Encounters Date Type Department Care Team (Late st Contact Info) Description 09/18/2024 11:00 EST Office Visit [facility] Bariatric Surgery [address] [address] Allen Thompson, PA-C [address] [place] [address] 5 [place] [phone] 10/26/2024 10:45 EST Telemedicine [facility] Neurology - S [address] [phone] Sulema Nicole NP [address] [place] [address] 2 [place] [phone] documented as of this encounter Visit Diagnoses Not on filedocumented in this encounter Care Teams Military Nurse Relationship Specialty Start Date End Date Curtis Burns MD 26 [facility] [address] [address] PCP - General Emergency Medicine 07/06/22 Juma Herrera MD [address] [facility] [place] [phone] 12/08/18 documented as of this encounter
--- OUTSIDE RECORDS SUMMARY | 2024-09-17 09:09 | XMS_ITS | Encounter Summary ---
Author Organization [facility] Address [address] [place] [address] Care Team Providers Care Butcherette Name Role Phone Juma Herrera MD Unavailable Curtis Burns MD Primary Care Provider [phone] Encounter Details Date Type Department Care Team (Late st Contact Info) Description 09/26/2022 Specialty Pharmacy [facility] Ambulatory Pharmacy - Main [address] [phone] Jj Verduzco, [facility] Social History Tobacco Use Types [...] Visit [facility] Bariatric Surgery [facility] [address] [place], [place] [address] Allen Thompson PA-C [address] [place] [address] 5 [place] [phone] 10/26/2024 10:45 EST Telemedicine [facility] Neurology - [address] [phone] Sulema Nicole NP [address] [place] [address] 2 [place] [phone] documented as of this encounter Visit Diagnoses Not on filedocumented in this encounter Care Teams Butcherette Relationship Specialty Start Date End Date Curtis Burns MD 26 [facility] [address] [place], [place] [address] PCP - General Emergency Medicine 07/06/22 Juma Herrera MD [address] [facility] [place] [address] 12/08/18 documented as of this encounter
--- OUTSIDE RECORDS SUMMARY | 2024-09-17 09:09 | XMS_ITS | Encounter Summary ---
Author Organization [facility] Address [address] [place] [address] Care Team Providers Care Child Care Group Leader Name Role Phone Juma Herrera MD Unavailable [facility], Primary Care Provider [phone] Reason for Visit * Reason Comments Neck Pain bilateral * Office Procedure (Routine) - Specialty Report Received Specialty Diagnoses / Procedures Referred By Wili mireles Referred To Contact Pain Medicine Diagnoses Neck pain Procedures MO NJX DX/THER SBST INTRLMNR CRV/THRC W/IMG GDN [facility] Interventional Pain [address] [place] [address] Phone: tel: fax: Catalino Garrett MD Phone: tel: fax: Referral ID Status Reason Start Date Expiration Date V isits Requested Visits Authorized [id number] Specialty Report Received 1 1 Encounter Details Date Type Department Care Team (Latest Contact Info) Description 02/01/2022 8:45 EDT Procedure visit [facility] Interventional Pain [address] [place] [address] Catalino Garrett MD 62 [facility] [address] [place] [address] Radiculopathy, cervical region (Primary Dx) [...] Time Taken Comments Blood Pressure 131/82 02/01/2022 0926 EDT Pulse 65 02/01/2022 0926 EDT Temperature 35 ??C (95 ??F) 02/01/2022 0803 EDT Respiratory Rate 18 02/01/2022 0926 EDT Oxygen Saturation 99% 02/01/2022 0803 EDT Inhaled Oxygen Concentration - - Weight [...] 8:45 EDT [facility] [address] [place], [place] [address] Patient Instructions You have had your cervical [...] documented in this encounter Progress Notes * Mabel Montgomery MA - 02/01/2022 0845 EDT [facility] Rooming Note Does patient have a Chiropractic Assistant? yes Is patient NPO? (Solids since midnight [...] no * Kaila Lovell RN - 02/01/2022 0835 EDT ATTENTION: An active Time-Out initiated by [...] Rooney : 1975 Date of Service: 02/01/2022 Body Mechanic: Gerry MEHTA Email Developer: none Procedure: Therapeutic cervical epidural steroid injections [...] Description 09/18/2024 11:00 EST Office Visit [facility] Bariatric Surgery [place] [address] [place], [place] [address] Allen Thompson PA-C 111 [facility] Level 5 [place] [phone] 10/26/2024 10:45 EST Telemedicine [facility] Neurology - S [place] 1 [place] [address] Sulema Nicole NP 1 [facility], Level 2 [place] [phone] documented as of this encounter Visit Diagnoses [...] mL documented in this encounter Care Teams Child Care Group Leader Relationship Specialty Start Date End Date [facility], Mp [address] [place] [address] PCP - General 02/01/22 07/05/22 Juma Herrera MD [address] [place] [address] 12/08/18 documented as of this encounter
--- OUTSIDE RECORDS SUMMARY | 2024-09-17 09:09 | XMS_ITS | Encounter Summary ---
Author Organization [facility] Address [address] [place] [address] Care Team Providers Care Insights Manager Name Role Phone Juma Herrera MD Unavailable Curtis Burns MD Primary Care Provider [phone] Reason for Visit * Reason Comments Obesity Post op sleeve 7 Yea rs Encounter Details Date Type Department Care Team (Late st Contact Info) Description 09/21/2022 10:30 EST Office Visit [facility] Bariatric Surgery [facility] [address] [place] [address] Allen Thompson, PA-C [address] [place] [address], [facility], Level 5 [place] [address] Morbid obesity (HCC-CMS) (Primary Dx); [...] mouth daily. 90 Capsule 3 09/21/2022 4 documented in this encounter Progress Notes * [...] Morbid obesity with BMI of 45.0-49.9, adult ([facility]) ([facility]) ??? Chronic migraine without aura without status [...] this encounter. 3. Seen and discussed with Instructional Technology Facilitator at this visit. Time spent: 26 minutes total; 16 minutes with the patient and 10 minutes for documentation and coordination of care. Allen Thompson PA-C 09/21/2022 10:48 documented in this encounter Plan of Treatment Upcoming Encounters Date Type Department Care Team (Late st Contact Info) Description 09/18/2024 11:00 EST Office Visit [facility] Bariatric Surgery - [place] [address] [place] [address] Allen Thompson PA-C 111 [facility], [facility] 5 [place] [phone] 10/26/2024 10:45 EST Telemedicine [facility] Neurology - [address] [address] Sulema Nicole, NURSING UNIT CLERK 1 [facility], Level 2 [place] [phone] documented as of this encounter Visit Diagnoses Diagnosis Morbid obesity ([facility])- Primary Morbid obesity S/P laparoscopic sleeve gastrectomy Bariatric surgery status BMI 32.0-32.9,adult Body Mass Index 32.0-32.9, adult documented in this encounter Discontinued Medications Medication Sig Discontinue Reason Start Date End Da te omeprazole (PRILOSEC) 40 mg capsule Take 1 capsule by mouth daily. Reorder 09/22/2021 09/21/2022 documented as of this encounter Care Teams Insights Manager Relationship Specialty Start Date End Date Curtis Burns MD 26 [facility] [address] [place] [address] PCP - General Emergency Medicine 07/06/22 Juma Herrera MD [address] [place] [address] 12/08/18 documented as of this encounter
--- OUTSIDE RECORDS SUMMARY | 2024-09-17 09:09 | XMS_ITS | Encounter Summary ---
Author Organization [facility] Address [address] [place] [address] Care Team Providers Care Hand Inspector Name Role Phone Juma Herrera MD Unavailable Curtis Burns MD Primary Care Provider [phone] Reason for Visit * Reason Onset Date Comments Other 10/11/2022 Encounter Details Date Type Department Care Team (Late st Contact Info) Description 10/11/2022 Telephone [facility] Physical Medicine & Rehabilitation - [address] [place] [address] Kj Child MD [address] [place] [phone] Other Social History Tobacco Use Types [...] Author No 09/05/2015 12:00 Khao Peñaloza * Do you have difficulty dressing [...] 10/11/2022 1516 EST Conversation with Faith from [facility] regarding information regarding implant device. Ilet her [...] Call: No chief complaint on file. Summary: [facility] calling to get information on implanted device patient has so MRI can be scheduled. They need make and model of this divide so they can proceed Appointment Offered? N/A Starr Narayan 10/11/2022 13:47 documented in this encounter Plan of Treatment Upcoming Encounters Date Type Department Care Team (Late st Contact Info) Description 09/18/2024 11:00 EST Office Visit [facility] Bariatric Surgery - [place] [address] [place] [address] Allen Thompson PA-C 111 [facility], Level 5 [place] [phone] 10/26/2024 10:45 EST Telemedicine [facility] Neurology - [address] [phone] Sulema Nicole, HEALTH PROGRAM SPECIALIST 1 [facility], Level 2 [place] [address] documented as of this encounter Visit Diagnoses Not on filedocumented in this encounter Care Teams Hand Inspector Relationship Specialty Start Date End Date Curtis Burns MD 26 [facility] [address] [place], [place] [address] PCP - General Emergency Medicine 07/06/22 Juma Herrera MD [address] [facility] [place] [address] 12/08/18 documented as of this encounter
--- OUTSIDE RECORDS SUMMARY | 2024-09-17 09:09 | XMS_ITS | Encounter Summary ---
Author Organization [facility] Address [address] [place] [address] Care Team Providers Care Hand Spring Repairer Name Role Phone Juma Herrera MD Unavailable [facility], Primary Care Provider [phone] Encounter Details Date Type Department Care Team (Latest Contact Info) Description 05/03/2022 14:45 EDT Ancillary Procedure [facility] Sports Medicine Program - [place] [address] Chronic right shoulder pain Social [...] EST Nina Hernandez documented in this encounter Plan of Treatment Upcoming Encounters Date Type Department Care Team (Late st Contact Info) Description 09/18/2024 11:00 EST Office Visit [facility] Bariatric Surgery [facility] 353 [place] [address] Allen Thompson PA-C 111 [facility] 5 [place] [phone] 10/26/2024 10:45 EST Telemedicine [facility] Neurology - S [place] 1 [place] [address] Sulema Nicole NP [address] [place] [address] 2 [place] [phone] documented as of this encounter Procedures Procedure Name Priority Date/Time Associated Diagnosis Comments POC MSK US SHOULDER Routine 05/03/2022 1 6:06 EDT Chronic right shoulder pain documented in this encounter Results * POC MSK US SHOULDER (05/03/2022 16:06 EDT) Narrative [facility] POINT OF CARE - 05/03/2022 16:06 EDT This is a non-reportable exam. Jun Balbuena MD [facility] US POC ORDERABLES Rhoda l Result [facility] POINT OF CARE documented in this encounter Visit Diagnoses Diagnosis Chronic right shoulder pain Pain in joint, shoulder region documented in this encounter Care Teams Hand Spring Repairer Relationship Specialty Start Date End Date [facility], Mp [address] [place] [address] PCP - General 02/01/22 07/05/22 Juma Herrera MD [address] [facility] [place] [address] 12/08/18 documented as of this encounter
--- OUTSIDE RECORDS SUMMARY | 2024-09-17 09:10 | XMS_ITS | Encounter Summary ---
Author Organization [facility] Address [address] [place] [address] Care Team Providers Care Wet Process Operator Name Role Phone Juma Herrera MD Unavailable Shonda Sánchez NP Primary Care Provider [phone] Reason for Referral * Radiology Services (Routine/Next Available) - Closed Specialty Diagnoses / Procedures Referred By Contac t Referred To Contact Diagnoses Back pain, unspecified back location, unspecified back pain laterality, unspecified chronicity Procedures XR ENTIRE SPINE 2-3 VIEWS Kj Child MD Phone: tel: fax: [facility] Referral ID Status Reason Start Date Expiration Date Visits Re quested Visits Authorized [id number] Closed 07/17/2021 1 1 Reason for Visit * Radiology Services (Routine/Next Available) - Closed Specialty Diagnoses / Procedures Referred By Contac t Referred To Contact Diagnoses Back pain, unspecified back location, unspecified back pain laterality, unspecified chronicity Procedures XR ENTIRE SPINE 2-3 VIEWS Kj Child MD Phone: tel: fax: [facility] Referral ID Status Reason Start Date Expiration Date Visits Re quested Visits Authorized [id number] Closed 07/17/2021 1 1 Encounter Details Date Type Department Care Team (Latest Contact Info) Description 07/18/2021 13:19 EST - 07/18/2021 23:59 EST [address] En[facility] [address] [place] [address] Back pain, unspecified back location, unspecified back [...] bedtime as needed. 2 erenumab-aooe (AIMOVIG AUTOINJECTOR) 70 mg/mL auto-injector Inject 70 mg into the skin every 28 days. 3 Syringe 3 03/06/2021 2 LORazepam (ATIVAN) 0.5 mg tablet Take 0.5 mg by mouth at bedtime. 2 omeprazole (PRILOSEC) 20 mg capsuleIndications :S/P laparoscopic sleeve gastrectomy,Gastro esophageal reflux disease without esophagitis Take 2 Caps by mouth daily 60 Cap 3 08/31/2015 2 oxyCODONE (ROXICODONE) 5 mg immediate release tablet [...] 2 rizatriptan (MAXALT) 10 mg tablet Take 10 mg by mouth once as needed. May repeat in 2 hours if needed 2 SUMAtriptan Succinate 6 mg/0.5 mL cartridge [...] Office Visit [facility] Bariatric Surgery [facility] [address] [place] [address] Allen Thompson, ZHOUC 111 [facility] 5 [place] [phone] 10/26/2024 10:45 EST Telemedicine [facility] Neurology - [address] [address] Sulema Nicole NP [address] [place] [address] 2 [place] [phone] documented as of this encounter Procedures Procedure [...] height loss. Kj Child MD IMG DIAGNOSTIC IMAGING O RDERABLES Final Result documented in this encounter Visit Diagnoses Diagnosis Back pain, unspecified back location, unspecified back pain laterality, unspecified chronicity documented in this encounter Care Teams Wet Process Operator Relationship Specialty Start Date End Date Shonda Sánchez NP [address] [place] [address] [address] [place] [phone] PCP - General 03/14/21 01/31/22 Juma Herrera MD [address] [facility] [id number] (work) 12/08/18 documented as of this encounter
--- OUTSIDE RECORDS SUMMARY | 2024-09-17 09:10 | XMS_ITS | Encounter Summary ---
Author Organization [facility] Address [address] [place] [address] Care Team Providers Care Wet Milling Wheel Operator Name Role Phone Juma Herrera MD Unavailable Shonda Sánchez NP Primary Care Provider [phone] Encounter Details Date Type Department Care Team (Late st Contact Info) Description 10/24/2021 Specialty Pharmacy [facility] Ambulatory Pharm[facility] - Main [place] [address] [place], [place] [phone] Yee Rodriguez, [facility] [address] [facility] 23 [place] [address] Social History Tobacco Use Types [...] 09/18/2024 11:00 EST Office Visit [facility] Bariatric Surgery [facility] 353 [place] [address] Allen Thompson PA-C 111 [facility], Level 5 [place] [address] 10/26/2024 10:45 EST Telemedicine [facility] Neurology - [address] [phone] Sulema Nicole NP [address] [place] [address] Level 2 [place] [phone] documented as of this encounter Visit Diagnoses Not on filedocumented in this encounter Care Teams Wet Milling Wheel Operator Relationship Specialty Start Date End Date Shonda Sánchez NP [address] [place] [address] [address] [place] [phone] PCP - General 03/14/21 01/31/22 Juma Herrera MD [address] [place] [phone] 12/08/18 documented as of this encounter
--- OUTSIDE RECORDS SUMMARY | 2024-09-17 09:10 | XMS_ITS | Encounter Summary ---
Author Organization [facility] Address [address] [place] [address] Care Team Providers Care Kalsominer Name Role Phone Juma Herrera MD Unavailable Shonda Sánchez PHLEBOTOMY SUPERVISOR Primary Care Provider [phone] Reason for Visit * Reason Onset Date Comments Medications Refill 12/20/2021 Encounter Details Date Type Department Care Team (Late st Contact Info) Description 12/20/2021 Refill [facility] Neurology - S [address] [phone] Kj Gloria MD PhD [address] [place] [address] 2 [place] [phone] Medications Refill Social History Tobacco Use Types [...] Nina Peñaloza an documented in this encounter Ordered Prescriptions Prescription [...] change: increased 140mg Refill due: 12/20/21 Pharmacy: [facility] Next appt: Visit date not found documented in this encounter Plan of Treatment Upcoming Encounters Date Type Department Care Team (Late st Contact Info) Description 09/18/2024 11:00 EST Office Visit [facility] Bariatric Surgery [facility] [address] [place] [address] Allen Thompson PA-C [address] [place] [address], [facility], Level [address] [place] [address] 10/26/2024 10:45 EST Telemedicine [facility] Neurology - S [place] [address] [place] [phone] Sulema Nicole NP 1 [facility], Level [address] [place] [phone] documented as of this encounter Visit Diagnoses Not on filedocumented in this encounter Discontinued Medications Medication Sig Discontinue Reason Start Date End Da te erenumab-aooe (AIMOVIG AUTOINJECTOR) 70 mg/mL auto-injector Inject 70 mg into the skin every 28 days. 03/06/2021 12/20/2021 documented as of this encounter Care Teams Kalsominer Relationship Specialty Start Date End Date Shonda Sánchez NP [address] [place] [phone] PCP - General 03/14/21 01/31/22 Juma Herrera MD [address] [facility] [place] [phone] 12/08/18 documented as of this encounter
--- OUTSIDE RECORDS SUMMARY | 2024-09-17 09:10 | XMS_ITS | Encounter Summary ---
Author Organization [facility] Address [address] [place] [address] Care Team Providers Care Recreation Worker Name Role Phone Juma Herrera MD Unavailable Shonda Sánchez PRECISION THREAD GRINDER OPERATOR Primary Care Provider [phone] Reason for Visit * Reason Onset Date Comments Appointment Related 12/20/2021 Encounter Details Date Type Department Care Team (Late st Contact Info) Description 12/20/2021 Telephone [facility] Neurology - [place] [address] [place] [phone] Kj Gloria MD PhD 1 [facility] 2 [place] [address] Appointment Related Social History Tobacco [...] decreased significantly. rx for rizatriptan sent to [facility] on 12/18/21. Closing encounter * Telephone Encounter - Sena Stern - 12/20/2021 1027 EDT Spoke with the patient. Sena scheduled televideo w/Dr. Gloria for 06/25/2022 @ 11 am. Need zoom invite. Email address confirmed. documented in this encounter Plan of Treatment Upcoming Encounters Date Type Department Care Team (Late st Contact Info) Description 09/18/2024 11:00 EST Office Visit [facility] Bariatric Surgery - [place] [address] [place] [address] Allen Thompson, PA-C 111 [facility], Level 5 [place] [phone] 10/26/2024 10:45 EST Telemedicine [facility] Neurology - [address] [address] Sulema Nicole NP 1 [facility] Level 2 [place] [phone] documented as of this encounter Visit Diagnoses Not on filedocumented in this encounter Care Teams Recreation Worker Relationship Specialty Start Date End Date Shonda Sánchez NP [address] [place] [phone] PCP - General 03/14/21 01/31/22 Juma Herrera MD [address] [facility] [place] [address] 12/08/18 documented as of this encounter
--- OUTSIDE RECORDS SUMMARY | 2024-09-17 09:10 | XMS_ITS | Encounter Summary ---
Author Organization [facility] Address [address] [place] [address] Care Team Providers Care Specialty Plant Supervisor Name Role Phone Juma Herrera MD Unavailable Shonda Sánchez NP Primary Care Provider [phone] Reason for Referral * Radiology Services (Routine/Next Available) - Closed Specialty Diagnoses / Procedures Referred By Contac t Referred To Contact Radiology Diagnoses Chronic right shoulder pain Procedures MR SHOULDER WO CONTRAST RIGHT Jun Balbuena MD Phone: tel: fax: [facility] Referral ID Status Reason Start Date Expiration Date Visits Re quested Visits Authorized [id number] Closed 09/12/2021 1 1 * Radiology Services (Routine/Next Available) - Closed Specialty Diagnoses / Procedures Referred By Contac t Referred To Contact Diagnoses Subluxation of right sternoclavicular joint, initial encounter Osteoarthritis of right sternoclavicular joint Procedures CT CLAVICLE RIGHT WO CONTRAST Jun Balbuena MD Phone: tel: fax: [facility] Referral ID Status Reason Start Date Expiration Date Visits Re quested Visits Authorized [id number] Closed 09/12/2021 1 1 Reason for Visit * Reason Comments Pain * Consult (See Order Priority) - Order Cancelled Specialty Diagnoses / Procedures Referred By Contac t Referred To Contact Orthopedic Surgery Diagnoses Right shoulder pain, unspecified chronicity Kj Child MD Phone: tel: fax: Jun Balbuena MD Phone: tel: fax: Referral ID Status Reason Start Date Expiration Date Visits Requested Visits Authorized [id number] Order Cancelled Specialty Services Required 1 1 1 Encounter Details Date Type Department Care Team (Latest Contact Info) Description 09/12/2021 14:30 EST Office Visit [facility] Sports Medicine Program - [address] [address] Jun Balbuena MD [address] [place] [address] Subluxation of right sternoclavicular joint, initial [...] Entry Date Author Yes 09/15/2018 7:52 NATALY Mary Nina mike documented in this encounter Progress Notes * [...] region of her scapula. Xrays were negative. [place] to me muscular. After 3 weeks, the [...] Arthritis ??? Back pain ??? Bipolar disorder ([facility]) ??? Breathing problem ??? Depression ??? Diabetes mellitus ([facility]) ??? Drug abuse (HCC-CMS) ([facility]) ??? Environmental allergies ??? Eye problem ??? Generalized headaches ??? Headache(784.0) ??? Heart disease ??? History of substance abuse (HCC-CMS) ([facility]) ??? Hypertension ??? Kidney disease ??? Mental disorder ??? Nervousness(799.21) ??? Numbness ??? Personality disorder (HCC-CMS) ([facility]) ??? Plantar fasciitis ??? PTSD (post-traumatic stress disorder) ??? Tarsal tunnel syndrome Patient Active Problem List Diagnosis ??? Lumbar radiculopathy ??? Os trigonum syndrome ??? Tarsal tunnel syndrome of right side ??? Idiopathic peripheral neuropathy ??? Cervicalgia ??? Morbid obesity with BMI of 45.0-49.9, adult (HCC-CMS) ([facility]) ??? 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 ROS: A 12 system comprehensive [...] [facility] [place] [address] [place] [address] Allen Thompson PA-C 111 [facility], [facility], Level 5 [place] [phone] 10/26/2024 10:45 EST Telemedicine [facility] Neurology - [address] [place] [address] [place] [address] Sulema Nicole NP 1 [facility], Level 2 [place] [phone] documented as of this encounter Results * [...] the right sternoclavicular joint on thestatic images. us Jun Balbuena MD IMG CT ORDERABLES Final Re sult * MR SHOULDER WO CONTRAST RIGHT (10/05/2021 [...] multiplanar and multisequence MR images of the [facility] were obtained. No contrast was administered. HISTORY: [...] findings. Jun Balbuena MD IMG MRI ORDERABLES Final R esult documented in this encounter Visit Diagnoses Diagnosis Subluxation of right sternoclavicular joint, initial encounter- Primary Osteoarthritis of right sternoclavicular joint Chronic right shoulder pain Pain in joint, shoulder region Chronic right shoulder pain Pain in joint, shoulder region Subluxation of right sternoclavicular joint, initial encounter Osteoarthritis of right sternoclavicular joint documented in this encounter Care Teams Specialty Plant Supervisor Relationship Specialty Start Date End Date Shonda Sánchez NP 195 [facility] [address] [place] [address] PCP - General 03/14/21 01/31/22 Juma Herrera MD [address] [place] [address] 12/08/18 documented as of this encounter
--- OUTSIDE RECORDS SUMMARY | 2024-09-17 09:10 | XMS_ITS | Encounter Summary ---
Author Organization [facility] Address [address] [place] [address] Care Team Providers Care Chair Car Attendant Name Role Phone Juma Herrera MD Unavailable Shonda Sánchez NP Primary Care Provider [phone] Reason for Referral * Radiology Services (Routine/Next Available) - Authorization Not Required Specialty Diagnoses / Procedures Referred By Contac t Referred To Contact Diagnoses Chronic right shoulder pain Procedures XR LUMBAR SPINE 2-3 VIEWS Jun Balbuena MD Phone: tel: fax: [facility] Referral ID Status Reason Start Date Expiration Date Visits Requested Visits Authorized [id number] Authorization Not Required 09/26/2021 1 1 Reason for Visit * Radiology Services (Routine/Next Available) - Authorization Not Required Specialty Diagnoses / Procedures Referred By Contac t Referred To Contact Diagnoses Chronic right shoulder pain Procedures XR LUMBAR SPINE 2-3 VIEWS Jun Balbuena MD Phone: tel: fax: [facility] Referral ID Status Reason Start Date Expiration Date Visits Requested Visits Authorized [id number] Authorization Not Required 09/26/2021 1 1 Encounter Details Date Type Department Care Team (Latest Contact Info) Description 10/05/2021 12:24 EST - 10/05/2021 23:59 EST Hospital [facility] Radiology Xray Outpatient - [address] [phone] Chronic right shoulder pain Discharge Disposition: Home [...] Info) Description 09/18/2024 11:00 EST Office Visit [facility] Bariatric Surgery [facility] [address] [place] [address] Allen Thompson PA-C 111 [facility] 5 [place] [phone] 10/26/2024 10:45 EST Telemedicine [facility] Neurology - [address] [address] Sulema Nicole NP [address] [place] [address] 2 [place] [phone] documented as of this encounter Procedures Procedure [...] as above. Jun Balbuena MD IMG DIAGNOSTIC IMAGING ORD ERABLES Final Result documented in this encounter Visit Diagnoses Diagnosis Chronic right shoulder pain Pain in joint, shoulder region documented in this encounter Care Teams Chair Car Attendant Relationship Specialty Start Date End Date Shonda Sánchez NP [address] [place], [place] [address]WY [address] [place] [address] PCP - General 03/14/21 01/31/22 Juma Herrera MD [address] [facility] [address] 12/08/18 documented as of this encounter
--- OUTSIDE RECORDS SUMMARY | 2024-09-17 09:10 | XMS_ITS | Encounter Summary ---
Author Organization [facility] Address [address] [place] [address] Care Team Providers Care Special Needs Bus Driver Name Role Phone Juma Herrera MD Unavailable Shonda Sánchez NP Primary Care Provider [phone] [facility] Primary Care Provider [phone] Curtis Burns MD Primary Care Provider [phone] Encounter Details Date Type Department Care Team (Late st Contact Info) Description 12/20/2021 Specialty Pharmacy [facility] - Main [place] [address] [place] [address] Kelechi Panda [facility] Social History Tobacco Use Types Packs/Day Years [...] Description 09/18/2024 11:00 EST Office Visit [facility] Bariatric Surgery [facility] [address] [place] [address] Allen Thompson PA-C 111 [facility], Level [address] [place] [address] 10/26/2024 10:45 EST Telemedicine [facility] Neurology - [address] [phone] Sulema Nicole NP [address] [place] [address], Level [address] [place] [phone] documented as of this encounter Visit Diagnoses Not on filedocumented in this encounter Care Teams Special Needs Bus Driver Relationship Specialty Start Date End Date Shonda Sánchez NP [address] [place] [address] [address] [place] [phone] PCP - General 03/14/21 01/31/22 [facility] [address] [place] [address] PCP - General 02/01/22 07/05/22 Curtis Burns MD 26 [facility] [address] [place] [address] PCP - General Emergency Medicine 07/06/22 Juma Herrera MD [address] [facility] [address] 12/08/18 documented as of this encounter
--- OUTSIDE RECORDS SUMMARY | 2024-09-17 09:10 | XMS_ITS | Encounter Summary ---
Author Organization [facility] Address [address] [place] [address] Care Team Providers Care Intern Name Role Phone Juma Herrera MD Unavailable Shonda Sánchez AUDIT DIRECTOR Primary Care Provider [phone] Encounter Details Date Type Department Care Team (Latest Contact Info) Description 12/05/2021 11:15 EDT Ancillary Procedure [facility] Sports Medicine Program - [address] [place], [place] [phone] Chronic right shoulder pain Social History Tobacco [...] [facility] [address] [address] Allen Thompson PA-C 111 [facility] 5 [place] [phone] 10/26/2024 10:45 EST Telemedicine [facility] Neurology - [facility] 1 [place] [address] Sulema Nicole NP [address] [place] [address] 2 [place] [phone] documented as of this encounter Procedures Procedure Name Priority Date/Time Associated Diagnosis Comments POC MSK US SHOULDER Routine 12/05/2021 1 5:16 EDT Chronic right shoulder pain documented in this encounter Results * POC MSK US SHOULDER (12/05/2021 15:16 EDT) Narrative [facility] POINT OF CARE - 12/05/2021 15:16 EDT This is a non-reportable exam. Jun Balbuena MD [facility] US POC ORDERABLES Rhoda sindi Result [facility] POINT OF CARE documented in this encounter Visit Diagnoses Diagnosis Chronic right shoulder pain Pain in joint, shoulder region documented in this encounter Care Teams Intern Relationship Specialty Start Date End Date Shonda Sánchez NP [address] [place] [address] PCP - General 03/14/21 01/31/22 Juma Herrera MD [address] [facility] [place] [address] 12/08/18 documented as of this encounter
--- OUTSIDE RECORDS SUMMARY | 2024-09-17 09:10 | XMS_ITS | Encounter Summary ---
Author Organization [facility] Address [address] [place] [address] Care Team Providers Care Stem Lead Former Name Role Phone Juma Herrera MD Unavailable Shonda Sánchez NP Primary Care Provider [phone] Encounter Details Date Type Department Care Team (Late st Contact Info) Description 09/25/2021 Specialty Pharmacy [facility] Ambulatory Pharmacy - Main [place] [address] [place], [place] [phone] Yee Rodriguez, [facility] [address] [facility] 23 [place] [address] Social History Tobacco Use Types [...] [facility] B[facility] 353 [place] [address] Allen Thompson PA-C [address] [facility], Level [address] [place] [address] 10/26/2024 10:45 EST Telemedicine [facility] Neurology - [address] [phone] Sulema Nicole NP [address] [place] [address] [address] [place] [phone] documented as of this encounter Visit Diagnoses Not on filedocumented in this encounter Care Teams Stem Lead Former Relationship Specialty Start Date End Date Shonda Sánchez NP [address] [place] [address] [address] [place] [phone] PCP - General 03/14/21 01/31/22 Juma Herrera MD [address] [place] [phone] 12/08/18 documented as of this encounter
--- OUTSIDE RECORDS SUMMARY | 2024-09-17 09:10 | XMS_ITS | Encounter Summary ---
Author Organization [facility] Address [address] [place] [address] Care Team Providers Care Information Technology Data Analyst Name Role Phone Juma Herrera MD Unavailable Shonda Sánchez SENIOR PRINCIPAL ARCHITECT Primary Care Provider [phone] Reason for Visit * Reason Onset Date Comments Appointment Related 09/22/2021 Encounter Details Date Type Department Care Team (Late st Contact Info) Description 09/22/2021 Telephone [facility] Interventional Pain 62 [place] [address] Catalino aGrrett MD [address] [facility] [address] [place] [address] Appointment Related Social History Tobacco [...] the following items: -Patient must have a sheet pile driver operator -Patient needs to arrive 45 minutes ahead [...] Telephone Encounter - Fang Collazo - 09/22/2021 0423 EST Patient called looking to get scheduled for another neck injections. Dr. Garrett's notes at her last follow up 06/22/21 don't seem to indicated any more injections are recommended. Please advise documented in this encounter Plan of Treatment Upcoming Encounters Date Type Department Care Team (Late st Contact Info) Description 09/18/2024 11:00 EST Office Visit [facility] Bariatric Surgery - [place] [address] [place] [address] Allen Thompson PA-C 111 [facility] 5 [place] [phone] 10/26/2024 10:45 EST Telemedicine [facility] Neurology - S [address] [phone] Sulema Nicole NP 1 [facility] 2 [place] [phone] documented as of this encounter Visit Diagnoses Not on filedocumented in this encounter Care Teams Information Technology Data Analyst Relationship Specialty Start Date End Date Shonda Sánchez NP [address] [place] [phone] PCP - General 03/14/21 01/31/22 Juma Herrera MD [address] [place] [address] 12/08/18 documented as of this encounter
--- OUTSIDE RECORDS SUMMARY | 2024-09-17 09:10 | XMS_ITS | Encounter Summary ---
Author Organization [facility] Address [address] [place] [address] Care Team Providers Care Segmental Wall Installer Name Role Phone Juma Herrera MD Unavailable Shonda Sánchez COLLECTIONS ASSOCIATE Primary Care Provider [phone] Reason for Visit * Reason Comments Follow-up Encounter Details Date Type Department Care Team (Latest Contact Info) Description 12/01/2021 10:30 EDT Office Visit [facility] Sports Medicine Program - [address] [address] Jun Balbuena MD [address] [place] [address] Osteoarthritis of right sternoclavicular joint [...] Author Yes 09/15/2018 7:52 NATALY Hernandez Nina mike documented in this encounter Progress [...] region of her scapula. Xrays were negative. [place] to me muscular. After 3 weeks, the [...] Info) Description 09/18/2024 11:00 EST Office Visit [facility] Bariatric Surgery - [place] [address] [place] [address] Allen Thompson PA-C [address] [place] [address], Level [address] [place] [phone] 10/26/2024 10:45 EST Telemedicine [facility] Neurology - S [address] [address] Sulema Nicole NP 1 [facility] 2 [place] [phone] documented as of this encounter Visit Diagnoses Diagnosis Osteoarthritis of right sternoclavicular joint- Primary Osteoarthritis of right acromioclavicular joint Impingement syndrome of shoulder, right documented in this encounter Care Teams Segmental Wall Installer Relationship Specialty Start Date End Date Shonda Sánchez NP [address] [place] [address] [address] [place] [phone] PCP - General 03/14/21 01/31/22 Juma Herrera MD [address] [facility] [place] [address] 12/08/18 documented as of this encounter
--- OUTSIDE RECORDS SUMMARY | 2024-09-17 09:10 | XMS_ITS | Encounter Summary ---
Author Organization [facility] Address [address] [place] [address] Care Team Providers Care Sheet Rock Finisher Name Role Phone Juma Herrera MD Unavailable Shonda Sánchez NP Primary Care Provider [phone] Reason for Visit * Reason Comments Injections * Prior Authorization (See Order Priority) - Order Cancelled Specialty Diagnoses / Procedures Referred By Wili mireles Referred To Contact Orthopedic Surgery Diagnoses Chronic right shoulder pain Jun Balbuena MD Phone: tel: fax: [facility] Sports Medicine Program [place] [address] Phone: tel: fax: Referral ID Status Reason Start Date Expiration Date Visits Requested Visits Authorized [id number] Order Cancelled Specialty Services Required 12/01/2021 1 1 Encounter Details Date Type Department Care Team (Latest Contact Info) Description 12/05/2021 11:15 EDT Procedure visit [facility] Sports Medicine Program [place] [address] Jun Balbuena MD [address] [place] [address] Impingement syndrome of shoulder, right (Primary [...] Description 09/18/2024 11:00 EST Office Visit [facility] Bariatric Surgery - [place] [address] [place] [address] Allen Thompson PA-C 111 [facility] 5 [place] [phone] 10/26/2024 10:45 EST Telemedicine [facility] Neurology - S [place] 1 [place], [place] [phone] Sulema Nicole NP [address] [place] [address] 2 [place] [phone] documented as of this encounter Procedures Procedure Name Priority Date/Time Associated Diagnosis Comments MEDICATION ONLY INJECTION Routine 12/05/2021 11:15 EDT Osteoarthritis of right acromioclavicular joint MEDICATION ONLY INJECTION Routine 12/05/2021 11:15 EDT Impingement syndrome of shoulder, right documented in this encounter Results * Medication Only Injection (12/05/2021 11:15 EDT) Narrative [facility] POINT OF CARE - 12/05/2021 11:15 EDT Jun Balbuena MD ? 12/05/2021 12:38 Medication Only Injection on 12/05/2021 11:15 Medications: 40 mg triamcinolone acetonide 40 mg/mL; 1 mL bupivacaine (PF) 0.5%; 1 mL lidocaine 20 mg/mL (2 %) Jun Balbuena MD PROCEDURE/MINOR SURGICAL O RDERABLES Final Result [facility] POINT OF CARE * Medication Only Injection (12/05/2021 11:15 EDT) Narrative [facility] POINT OF CARE - 12/05/2021 11:15 EDT Jun Balbuena MD ? 12/05/2021 12:38 Medication Only Injection on 12/05/2021 11:15 Medications: 3 mL bupivacaine (PF) 0.5%; 80 mg triamcinolone acetonide 40 mg/mL; 3 mL lidocaine 20 mg/mL (2 %) Jun Balbuena MD PROCEDURE/MINOR SURGICAL O RDERABLES Final Result Performing Organization Address [facility] Co de Phone Number [facility] POINT OF CARE documented in this encounter [...] Sat12/05/21 at 1115, Until Sat12/05/21 at 1115, RoutineIndications:Osteoarthritis of right acromioclavicular joint Given 12/05/2021 11:15 EDT 1 mL bupivacaine (PF) (MARCAINE) 0.5% injection 3 mL 3 mL, intra-articular, Once PRN Procedure, 1 dose, Starting on Sat12/05/21 at 1115, Until Tu12/05/21 at 1115, RoutineIndications:Impingement syndrome of shoulder, right Given 12/05/2021 11:15 EDT 3 mL lidocaine 20 mg/mL (2 %) injection 1 mL 1 mL, other, Once PRN Procedure, 1 dose, Starting on Sat12/05/21 at 1115, Until Sat12/05/21 at 1115, RoutineIndications:Osteoarthritis of right acromioclavicular joint Given 12/05/2021 11:15 EDT 1 mL lidocaine 20 mg/mL (2 %) injection 3 mL 3 mL, other, Once PRN Procedure, 1 dose, Starting on 12/05/21 at 1115, Until 12/05/21 at 1115, RoutineIndications:Impingement syndrome of shoulder, right Given 12/05/2021 11:15 EDT 3 mL triamcinolone acetonide (KENALOG-40) injection 40 mg 40 mg, other, Once PRN Procedure, 1 dose, Starting on 12/05/21 at 1115, Until 12/05/21 at 1115, RoutineIndications:Osteoarthritis of right acromioclavicular joint Given 12/05/2021 11:15 EDT 40 mg triamcinolone acetonide (KENALOG-40) injection 80 mg 80 mg, other, Once PRN Procedure, 1 dose, Starting on 12/05/21 at 1115, Until 12/05/21 at 1115, RoutineIndications:Impingement syndrome of shoulder, right Given 12/05/2021 11:15 EDT 80 mg documented in this encounter Care Teams Sheet Rock Finisher Relationship Specialty Start Date End Date Shonda Sánchez NP [address] [place], [place] [address]Y [address] [place] [address] PCP - General 03/14/21 01/31/22 Juma Herrera MD [address] [facility] [place] [address] 12/08/18 documented as of this encounter
--- OUTSIDE RECORDS SUMMARY | 2024-09-17 09:10 | XMS_ITS | Encounter Summary ---
Author Organization [facility] Address [address] [place] [address] Care Team Providers Care Grinder Operator Name Role Phone Juma Herrera MD Unavailable Shonda Sánchez RAILWAY SHUNTER Primary Care Provider [phone] Reason for Visit * Reason Onset Date Comments Medication Problem 09/22/2021 Encounter Details Date Type Department Care Team (Late st Contact Info) Description 09/22/2021 Telephone [facility] Bariatric Surgery [address] [address] Allen Thompson, PALizettC 111 [facility], [facility] 5 [place] [address] Medication Problem Social History Tobacco [...] Assessment Author No 09/05/2015 12:00 EST Mary, Mor bruce * Are you blind or do [...] Hernandez Nina an documented in this encounter Ordered Prescriptions Prescription Sig Dispense Quantity Refills Last Filled Start Date End Date nystatin (MYCOSTATIN) powder Apply to affected area [...] Tia calling, advised went to pharmacy to spanish moss picker powder discussed at this morning's appointment & was advised only RX received was for Omeprazole. Tia requesting RX be sent to [facility] in [facility] for powder. Can be reached at [phone] if any questions. documented in this encounter Plan of Treatment Upcoming Encounters Date Type Department Care Team (Late st Contact Info) Description 09/18/2024 11:00 EST Office Visit [facility] Bariatric Surgery - [place] [address] [place] [address] Allen Thompson, PA-C 111 [facility], [facility], Level 5 [place] [address] 10/26/2024 10:45 EST Telemedicine [facility] Neurology - [address] [address] Sulema Nicole, RAILWAY SHUNTER 1 [facility] Level 2 [place] [phone] documented as of this encounter Visit Diagnoses Not on filedocumented in this encounter Care Teams Grinder Operator Relationship Specialty Start Date End Date Shonda Sánchez NP [address] [place] [phone] PCP - General 03/14/21 01/31/22 Juma Herrera MD [address] [facility] [place] [address] 12/08/18 documented as of this encounter
--- OUTSIDE RECORDS SUMMARY | 2024-09-17 09:10 | XMS_ITS | Encounter Summary ---
Author Organization [facility] Address [address] [place] [address] Care Team Providers Care Launch Leader Name Role Phone Juma Herrera MD Unavailable Shonda Sánchez AXLE BEARING POLISHER Primary Care Provider [phone] Reason for Visit * Reason Onset Date Comments Appointment Related 01/08/2022 Encounter Details Date Type Department Care Team (Late st Contact Info) Description 01/08/2022 Telephone [facility] Interventional Pain [address] [place] [address] Catalino Garrett MD [address] [place] [address] Appointment Related Social History Tobacco [...] Telephone Encounter - Jalyn Gibbons - 01/08/2022 5498 EDT Spoke with patient: Appointment for 01/09/22 [...] [facility] Bariatric Surgery - [place] [address] [place], [place] [address] Allen Thompson PA-C 111 [facility] 5 [place] [address] 10/26/2024 10:45 EST Telemedicine [facility] Neurology - [address] [phone] Sulema Nicole, GIULIA [address] [place] [address] Level [address] [place] [address] documented as of this encounter Visit Diagnoses Not on filedocumented in this encounter Care Teams Launch Leader Relationship Specialty Start Date End Date Shonda Sánchez NP [address] [place] [phone] PCP - General 03/14/21 01/31/22 Juma Herrera MD [address] [facility] [address] 12/08/18 documented as of this encounter
--- OUTSIDE RECORDS SUMMARY | 2024-09-17 09:10 | XMS_ITS | Encounter Summary ---
Author Organization [facility] Address [address] [place] [address] Care Team Providers Care Wagon Driver Salesperson Name Role Phone Juma Herrera MD Unavailable Shonda Sánchez NP Primary Care Provider [phone] Reason for Referral * Radiology Services (Routine/Next Available) - Closed Specialty Diagnoses / Procedures [facility] Referred To Contact Diagnoses Chronic right shoulder pain Procedures XR SHOULDER RIGHT 2 OR MORE VIEWS Jun Balbuena MD Phone: tel: fax: [facility] Referral ID Status Reason Start Date Expiration Date Visits Re quested Visits Authorized [id number] Closed 09/05/2021 1 1 Reason for Visit * Radiology Services (Routine/Next Available) - Closed Specialty Diagnoses / Procedures [facility] Referred To Contact Diagnoses Chronic right shoulder pain Procedures XR SHOULDER RIGHT 2 OR MORE VIEWS Jun Balbuena MD Phone: tel: fax: [facility] Referral ID Status Reason Start Date Expiration Date Visits Re quested Visits Authorized [id number] Closed 09/05/2021 1 1 Encounter Details Date Type Department Care Team (Latest Contact Info) Description 09/12/2021 14:15 EST - 09/12/2021 23:59 EST [address] Encounter [address] X[address] [place], [place] [id number] Chronic right shoulder pain Discharge Disposition: Home [...] Description 09/18/2024 11:00 EST Office Visit [facility] Bariatric Surgery - [place] [address] [place] [address] Allen Thompson PA-C 111 [facility] 5 [place] [phone] 10/26/2024 10:45 EST Telemedicine [facility] Neurology - [address] [phone] Sulema Nicole NP [address] [place] [address] 2 [place] [phone] documented as of this encounter Procedures Procedure [...] without fracture. Jun Balbuena MD IMG DIAGNOSTIC IMAGING ORD ERABLES Final Result documented in this encounter Visit Diagnoses Diagnosis Chronic right shoulder pain Pain in joint, shoulder region documented in this encounter Care Teams Wagon Driver Salesperson Relationship Specialty Start Date End Date Shonda Sánchez NP [address] [place] [phone] PCP - General 03/14/21 01/31/22 Juma Herrera MD [address] [facility] [place] [address] 12/08/18 documented as of this encounter
--- OUTSIDE RECORDS SUMMARY | 2024-09-17 09:10 | XMS_ITS | Encounter Summary ---
Author Organization [facility] Address [address] [place] [address] Care Team Providers Care Wafer Abrading Machine Tender Name Role Phone Juma Herrera MD Unavailable Shonda Sánchez WIND FARM ENGINEER Primary Care Provider [phone] Reason for Visit * Reason Onset Date Comments Prior Auth, Medication 12/20/2021 Aimovig 1 40 mg inject 1 ml sq q 28 days. Dose increase. Encounter Details Date Type Department Care Team (Late st Contact Info) Description 12/20/2021 Telephone [facility] Adult Neurology - Main [address] [phone] Kj Gloria MD PhD [address] [place] [address] 2 [place] [phone] Prior Auth, Medication (Aimovig 140 mg inject [...] ml subcutaneous q 28 days. Insurance Name: [place] Insurance Type: Commercial Approval Dates: 09/02/2021-12/20/2022 Authorization Number: Benefits Information: [facility] able to fill? : YES Required Pharmacy: Additional Info/Other Notes: patient is already enrolled in our SPRX services. Prior Authorization Submission Process - Routine Medication: Aimovig 140 mg inject 1 ml subcutaneous q 28 days. Insurance: [employer] Insurance Type: Medicare Part D Date PA Request Received: 12/20/2021 PA Submission Date: 12/20/2021 CMM Srivastava: [id number] Notes: Submitted by: TRISTA Phone: [phone] documented in this encounter Plan of Treatment Upcoming Encounters Date Type Department Care Team (Late st Contact Info) Description 09/18/2024 11:00 EST Office Visit [facility] Bariatric Surgery - [place] [address] [place], [place] [address] Allen Thompson, PA-C 111 [facility], Level [address] [place] [phone] 10/26/2024 10:45 EST Telemedicine [facility] Neurology - [address] [phone] Sulema Nicole NP 1 [facility] Level 2 [place] [address] documented as of this encounter Visit Diagnoses Not on filedocumented in this encounter Care Teams Wafer Abrading Machine Tender Relationship Specialty Start Date End Date Shonda Sánchez NP [address] [place] [address] [address] [place] [phone] PCP - General 03/14/21 01/31/22 Juma Herrera MD [address] [facility] [place] [address] 12/08/18 documented as of this encounter
--- OUTSIDE RECORDS SUMMARY | 2024-09-17 09:10 | XMS_ITS | Encounter Summary ---
Author Organization [facility] Address [address] [place] [address] Care Team Providers Care Slate Trimmer Name Role Phone uJma Herrera MD Unavailable Shonda Sánchez NP Primary Care Provider [phone] Reason for Referral * Radiology Services (Routine/Next Available) - Closed Specialty Diagnoses / Procedures Referred By Contac t Referred To Contact Diagnoses Chronic right shoulder pain Procedures XR SHOULDER RIGHT 2 OR MORE VIEWS Jun Balbuena MD Phone: tel: fax: [facility] Referral ID Status Reason Start Date Expiration Date Visits Re quested Visits Authorized [id number] Closed 09/05/2021 1 1 Encounter Details Date Type Department Care Team (Late st Contact Info) Description 09/05/2021 Orders Only [facility] Sports Medicine Program - [address] [place] [address] Jun Balbuena MD [address] [place] [phone] Chronic right shoulder pain (Primary Dx) [...] Info) Description 09/18/2024 11:00 EST Office Visit [facility] Bariatric Surgery - [place] [address] [place] [address] Allen Thompson PA-C [address] [place] [address] 5 [place] [phone] 10/26/2024 10:45 EST Telemedicine [facility] Neurology - [address] [phone] Sulema Nicole NP [address] [place] [address] Level 2 [place] [address] documented as of this encounter Results * [...] region documented in this encounter Care Teams Slate Trimmer Relationship Specialty Start Date End Date Shonda Sánchez NP [address] [place] [address] [address] [place] [address] PCP - General 03/14/21 01/31/22 Juma Herrera MD [address] [facility] [place] [address] 12/08/18 documented as of this encounter
--- OUTSIDE RECORDS SUMMARY | 2024-09-17 09:10 | XMS_ITS | Encounter Summary ---
Author Organization [facility] Address [address] [place] [address] Care Team Providers Care Silk Spooler Name Role Phone Juma Herrera MD Unavailable Shonda Sánchez NP Primary Care Provider [phone] Reason for Referral * Radiology Services (Routine/Next Available) - Closed Specialty Diagnoses / Procedures Referred By Wili t Referred To Contact Diagnoses Subluxation of right sternoclavicular joint, initial encounter Osteoarthritis of right sternoclavicular joint Procedures CT CLAVICLE RIGHT WO CONTRAST Jun Balbuena MD Phone: tel: fax: [facility] Referral ID Status Reason Start Date Expiration Date Visits Re quested Visits Authorized [id number] Closed 09/12/2021 1 1 Reason for Visit * Radiology Services (Routine/Next Available) - Closed Specialty Diagnoses / Procedures Referred By Wili mireles Referred To Contact Diagnoses Subluxation of right sternoclavicular joint, initial encounter Osteoarthritis of right sternoclavicular joint Procedures CT CLAVICLE RIGHT WO CONTRAST Jun Balbuena MD Phone: tel: fax: [facility] Referral ID Status Reason Start Date Expiration Date Visits Re quested Visits Authorized [id number] Closed 09/12/2021 1 1 Encounter Details Date Type Department Care Team (Latest Contact Info) Description 10/05/2021 12:23 EST Hospital Encounter [facility] Radiology [facility] - [address] [address] Subluxation of right sternoclavicular joint, initial encounter; [...] Info) Description 09/18/2024 11:00 EST Office Visit [facility] Bariatric Surgery [facility] [address] [place], [place] [address] Allen Thompson PA-C 111 [facility] Level 5 [place] [phone] 10/26/2024 10:45 EST Telemedicine [facility] Neurology - [place] 1 [place], [place] [phone] Sluema Nicole NP [address] [place] [address] Level 2 [place] [phone] documented as of this encounter Procedures Procedure [...] images. Jun Balbuena MD IMG CT ORDERABLES Final Re sult documented in this encounter Visit Diagnoses Diagnosis Subluxation of right sternoclavicular joint, initial encounter Osteoarthritis of right sternoclavicular joint documented in this encounter Care Teams Silk Spooler Relationship Specialty Start Date End Date Shonda Sánchez NP [address] [facility] [address] [place] [address] PCP - General 03/14/21 01/31/22 Juma Herrera MD [address] [place] [address] 12/08/18 documented as of this encounter
--- OUTSIDE RECORDS SUMMARY | 2024-09-17 09:10 | XMS_ITS | Encounter Summary ---
Author Organization [facility] Address [address] [place] [address] Care Team Providers Care Multimedia Production Assistant Name Role Phone Juma Herrera MD Unavailable Shonda Sánchez W[employer]GER [employer] GLUER Primary Care Provider [phone] Reason for Visit * Reason Onset Date Comments Appointment Related 09/26/2021 Encounter Details Date Type Department Care Team (Late st Contact Info) Description 09/26/2021 Telephone [facility] Sports Medicine Program - [address] [address] Jun Balbuena MD [address] [place] [address] Appointment Related Social History Tobacco Use [...] shoulder MRI and right clavicle CT 2.3.22. LM for pt to schedule a follow up with Dr. Balbuena to review the results. documented in this encounter Plan of Treatment Upcoming Encounters Date Type Department Care Team (Late st Contact Info) Description 09/18/2024 11:00 EST Office Visit [facility] Bariatric Surgery - [place] [address] [place], [place] [address] Allen Thompson PA-C 111 [facility] 5 [place] [phone] 10/26/2024 10:45 EST Telemedicine [facility] Neurology - [address] [address] Sulema Nicole NP [address] [place] [address] Level 2 [place] [phone] documented as of this encounter Visit Diagnoses Not on filedocumented in this encounter Care Teams Multimedia Production Assistant Relationship Specialty Start Date End Date Shonda Sánchez NP [address] [place] [phone] PCP - General 03/14/21 01/31/22 Juma Herrera MD [address] [facility] [place] [address] 12/08/18 documented as of this encounter
--- OUTSIDE RECORDS SUMMARY | 2024-09-17 09:10 | XMS_ITS | Encounter Summary ---
Author Organization [facility] Address [address] [place] [address] Care Team Providers Care Hspt Tutor Name Role Phone Juma Herrera MD Unavailable Shonda Sánchez NP Primary Care Provider [phone] Encounter Details Date Type Department Care Team (Late st Contact Info) Description 08/30/[address] [facility] Ambulatory Pharmacy - Main [place] [address] [place], [place] [phone] Yee Rodriguez, [facility] [address] [facility] 23 [place] [address] Social History Tobacco Use Types [...] Description 09/18/2024 11:[address] [facility] Bariatric Surgery [facility] [address] [place] [address] Allen Thompson PA-C 111 [facility] 5 [place] [address] 10/26/2024 10:[address] [facility] Neurology - [address] [place] 1 [place], [place] [phone] Sulema Nicole NP [address] [place] [address] Level [address] [place] [address] documented as of this encounter Visit Diagnoses Not on filedocumented in this encounter Additional Health Concerns Infection Onset Date Last Indicated Resolved Time COVID-19 08/15/2021 08/15/2021 09/04/2021 22:1 5 EST documented as of this encounter Care Teams Hspt Tutor Relationship Specialty Start Date End Date Shonda Sánchez NP [address] [place] [address] [address] [place] [address] PCP - General 03/14/21 01/31/22 Juma Herrera MD [address] [place] [address] 12/08/18 documented as of this encounter
--- OUTSIDE RECORDS SUMMARY | 2024-09-17 09:10 | XMS_ITS | Encounter Summary ---
Author Organization [facility] Address [address] [place] [address] Care Team Providers Care Issuing Operator Name Role Phone Juma Herrera MD Unavailable Shonda Sánchez NP Primary Care Provider [phone] Reason for Visit * Reason Comments Obesity Post op sleeve 6 yea rs Encounter Details Date Type Department Care Team (Late st Contact Info) Description 09/22/2021 10:30 EST Office Visit [facility] Bariatric Surgery [facility] 353 [place] [address] Allen Thompson, PALizettC [address] [place] [address], [facility], Level 5 [place] [address] Morbid obesity (HCC-CMS) (Primary Dx); [...] mouth daily. 90 capsule 3 09/22/2021 3 documented in this encounter Progress Notes * [...] Labs: WNL, Abnormal (Low Vit D in 2019) Assessment: Adequate Meal Frequency: Yes Adequate Meal Composition: Yes Exercise Adequacy: Yes Hydration/Caffeine:2 cans regular Gingerale as she cannot tolerate diet sugar; Cup of Coffee with sweetened [place]er Vanilla Creamer or Ice coffee at work; [...] with BMI of 45.0-49.9, adult ([facility]) ([facility]) ??? Chronic migraine without aura without status [...] followed by PCP Seen and discussed with Machine I Engraver at this visit. Allen Thompson PA-C 09/22/2021 11:31 documented in this encounter Plan of Treatment Upcoming Encounters Date Type Department Care Team (Late st Contact Info) Description 09/18/2024 11:00 EST Office Visit [facility] Bariatric Surgery - [place] [address] [place], [place] [address] Allen Thompson PA-C 111 [facility], Level 5 [place] [address] 10/26/2024 10:45 EST Telemedicine [facility] Neurology - [address] [address] Sulema Nicole NP [address] [place] [address] Level 2 [place] [address] documented as of this encounter Visit Diagnoses Diagnosis Morbid obesity ([facility])- Primary Morbid obesity S/P laparoscopic sleeve gastrectomy Bariatric surgery status BMI 33.0-33.9,adult Body Mass Index 33.0-33.9, adult documented in this encounter Discontinued Medications Medication Sig Discontinue Reason Start Date End Da te omeprazole (PRILOSEC) 20 mg capsuleIndications:S/P laparoscopic sleeve gastrectomy,Gastroesophage al reflux disease without esophagitis Take 2 Caps by mouth daily 08/31/2015 09/22/2021 documented as of this encounter Care Teams Issuing Operator Relationship Specialty Start Date End Date Shonda Sánchez NP [address] [place] [address] [address] [place] [address] PCP - General 03/14/21 01/31/22 Juma Herrera MD [address] [facility] [place] [address] 12/08/18 documented as of this encounter
--- OUTSIDE RECORDS SUMMARY | 2024-09-17 09:10 | XMS_ITS | Encounter Summary ---
Author Organization [facility] Address [address] [place] [address] Care Team Providers Care Design Chief Name Role Phone Juma Herrera MD Unavailable Shonda Sánchez NP Primary Care Provider [phone] Encounter Details Date Type Department Care Team (Late st Contact Info) Description 11/22/2021 Specialty Pharmacy [facility] Ambulatory Pharmacy - Main [place] [address] [place], [place] [phone] Yee Rodriguez, [facility] [address] [facility] 23 [place] [address] Social History Tobacco Use Types [...] Info) Description 09/18/2024 11:00 EST Office Visit [facility] Bariatric Surgery [facility] 353 [place] [address] Allen Thompson PA-C 111 [facility], Level 5 [place] [address] 10/26/2024 10:45 EST Telemedicine [facility] Neurology - [address] [phone] Sulema Nicole NP [address] [place] [address] Level [address] [place] [address] documented as of this encounter Visit Diagnoses Not on filedocumented in this encounter Care Teams Design Chief Relationship Specialty Start Date End Date Shonda Sánchez NP [address] [place] [address] [address] [place] [phone] PCP - General 03/14/21 01/31/22 Juma Herrera MD [address] [place] [phone] 12/08/18 documented as of this encounter
--- OUTSIDE RECORDS SUMMARY | 2024-09-17 09:10 | XMS_ITS | Encounter Summary ---
Author Organization [facility] Address [address] [place] [address] Care Team Providers Care Experimental Box Tester Name Role Phone Juma Herrera MD Unavailable Shonda Sánchez DENTAL OFFICE MANAGER Primary Care Provider [phone] Reason for Visit * Reason Comments Pain Encounter Details Date Type Department Care Team (Late st Contact Info) Description 07/18/2021 13:30 EST Office Visit [facility] Spine Program - [address] [address] Kj Child MD 192 [facility] [place] [address] Back pain, unspecified back location, [...] of Assessment Author Yes 09/15/2018 7:52 NATALY Lazaroson Nina mike documented as of this encounter Mental Status * Because of a physical, mental, or emotional condition, does this person have serious difficulty concentrating, remembering, or making decisions? Answer Entry Date Author Yes 09/15/2018 7:52 NATALY Nina Hernandez mike documented in this encounter Progress Notes [...] Info) Description 09/18/2024 11:00 EST Office Visit [facility] Bariatric Surgery - [place] [address] [place] [address] Allen Thompson PALizettC 111 [facility], Level 5 [place] [address] 10/26/2024 10:45 EST Telemedicine [facility] Neurology - [address] [phone] Sulema Nicole NP 1 [facility], Level [address] [place] [address] documented as of this encounter Visit Diagnoses Diagnosis Back pain, unspecified back location, unspecified back pain laterality, unspecified chronicity- Primary documented in this encounter Care Teams Experimental Box Tester Relationship Specialty Start Date End Date Shonda Sánchez NP [address] [place] [address] PCP - General 03/14/21 01/31/22 Juma Herrera MD [address] [facility] [place] [address] 12/08/18 documented as of this encounter
--- OUTSIDE RECORDS SUMMARY | 2024-09-17 09:10 | XMS_ITS | Encounter Summary ---
Author Organization [facility] Address [address] [place] [address] Care Team Providers Care Salesperson Furniture Name Role Phone Juma Herrera MD Unavailable Shonda Sánchez CLINICAL NUTRITIONIST Primary Care Provider [phone] Reason for Visit * Reason Comments Follow-up Telemedicine Video Visit Encounter Details Date Type Department Care Team (Late st Contact Info) Description 12/18/2021 11:30 EDT Telemedicine [facility] Neurology - S [address] [id number] Kj Gloria MD PhD 1 [facility] 2 [place] [address] Chronic migraine without aura without [...] Hernandez Nina mike documented in this encounter Ordered Prescriptions Prescription Sig Dispense Quantity Refills Last Filled Start Date End Date rizatriptan (MAXALT) 10 mg tablet Take 1 [...] [facility] Bariatric Surgery - [place] [address] [place], [place] [address] Allen Thompson, PALizettC 111 [facility], Level 5 [place] [phone] 10/26/2024 10:45 EST Telemedicine [facility] Neurology - [facility] [place] 1 [place] [address] Sulema Nicole NP 1 [facility], Level 2 [place] [address] documented as of this encounter [...] may reflect changes made after this encounter. cloNIDine HCL (CATAPRES) 0.1 mg tablet Take 1 Tablet by mouth 2 times daily. added in this encounter Care Teams Salesperson Furniture Relationship Specialty Start Date End Date Shonda Sánchez NP [facility] [address] [place] [address] PCP - General 03/14/21 01/31/22 Juma Herrera MD [address] [facility] [place] [address] 12/08/18 documented as of this encounter
--- OUTSIDE RECORDS SUMMARY | 2024-09-17 09:10 | XMS_ITS | Encounter Summary ---
Author Organization [facility] Address [address] [place] [address] Care Team Providers Care Manager Energy Name Role Phone Juma Herrera MD Unavailable Shonda Sánchez NP Primary Care Provider [phone] Encounter Details Date Type Department Care Team (Late st Contact Info) Description 08/03/2021 Orders Only [facility] - S [place] 1 [place], [place] [address] Yee Rodriguez, [facility] [address] [facility] 23 [place] [phone] Social History Tobacco Use Types Packs/Day Years [...] Start Date End Date erenumab-aooe (AIMOVIG AUTOINJECTOR) 70 mg/mL auto-injector Inject 1 mL into the skin every 28 days for 10 days. 1 mL 08/03/2021 08/13/2021 documented in this encounter Plan of Treatment Upcoming Encounters Date Type Department Care Team (Late st Contact Info) Description 09/18/2024 11:00 EST Office Visit [place] [facility] [address] [place] [address] Allen Thompson, ZHOUC 111 [facility] Level 5 [place] [address] 10/26/2024 10:45 EST Telemedicine [facility] - [address] [address] Sulema Nicole NP [address] [place] [address] 2 [place] [phone] documented as of this encounter Visit Diagnoses Not on filedocumented in this encounter Care Teams Manager Energy Relationship Specialty Start Date End Date Shonda Sánchez NP [address] [place] [address] PCP - General 03/14/21 01/31/22 Juma Herrera MD [address] [facility] [place] [address] 12/08/18 documented as of this encounter
--- OUTSIDE RECORDS SUMMARY | 2024-09-17 09:10 | XMS_ITS | Encounter Summary ---
Author Organization [facility] Address [address] [place] [address] Care Team Providers Care Outside Parts Sales Name Role Phone Juma Herrera MD Unavailable Shonda Sánchez NP Primary Care Provider [phone] Reason for Referral * Radiology Services (Routine/Next Available) - Authorization Not Required Specialty Diagnoses / Procedures Referred By Contac t Referred To Contact Diagnoses Chronic right shoulder pain Procedures XR LUMBAR SPINE 2-3 VIEWS Jun Balbuena MD Phone: tel: fax: [facility] Referral ID Status Reason Start Date Expiration Date Visits Requested Visits Authorized [id number] Authorization Not Required 09/26/2021 1 1 Encounter Details Date Type Department Care Team (Late st Contact Info) Description 09/26/2021 Orders Only [facility] Sports Medicine Program - [address] [address] Jun Balbuena MD [address] [place] [address] Chronic right shoulder pain (Primary Dx) [...] Assessment Author No 09/05/2015 12:00 EST Khoa Hernadnez * Do you have serious difficulty walking [...] Info) Description 09/18/2024 11:00 EST Office Visit [facility] Bariatric Surgery - [facility] [address] [place] [address] Allen Thompson PA-C 111 [facility] 5 [place] [address] 10/26/2024 10:45 EST Telemedicine [facility] Neurology - [address] [address]98[address] Sulema Nicole NP [address] [place] [address] 2 [place] [phone] documented as of this encounter Results * [...] region documented in this encounter Care Teams Outside Parts Sales Relationship Specialty Start Date End Date Shonda Sánchez NP [address] [place] [address] [facility] - General 03/14/21 01/31/22 Juma Herrera MD [address] [facility] [place] [address] 12/08/18 documented as of this encounter
--- OUTSIDE RECORDS SUMMARY | 2024-09-17 09:10 | XMS_ITS | Encounter Summary ---
Author Organization [facility] Address [address] [place] [address] Care Team Providers Care Printing Engineer Name Role Phone Juma Herrera MD Unavailable Shonda Sánchez BUTT TRIMMER Primary Care Provider [phone] Encounter Details Date Type Department Care Team (Late st Contact Info) Description 12/01/2021 Orders Only [facility] Sports Medicine Program - [address] [address] Jun Balbuena MD 192 [place] [address] Chronic right shoulder pain (Primary [...] Info) Description 09/18/2024 11:00 EST Office Visit [facility] Bariatric Surgery - [place] 353 [place] [address] Allen Thompson PA-C 111 [facility], Level 5 [place] [phone] 10/26/2024 10:45 EST Telemedicine [facility] Neurology - [address] [address] Sulema Nicole NP [address] [place] [address] Level 2 [place] [phone] documented as of this encounter Results * POC MSK US SHOULDER (12/05/2021 15:16 EDT) Narrative [facility] POINT OF CARE - 12/05/2021 15:16 EDT This is a non-reportable exam. us Jun Balbuena MD IMG US POC ORDERABLES Rhoda l Result [facility] POINT OF CARE documented in this encounter Visit Diagnoses Diagnosis Chronic right shoulder pain- Primary Pain in joint, shoulder region Chronic right shoulder pain Pain in joint, shoulder region documented in this encounter Care Teams Printing Engineer Relationship Specialty Start Date End Date Shonda Sánchez NP [address] [place] [address] PCP - General 03/14/21 01/31/22 Juma Herrera MD [address] [facility] [place] [phone] 12/08/18 documented as of this encounter
--- OUTSIDE RECORDS SUMMARY | 2024-09-17 09:10 | XMS_ITS | Encounter Summary ---
Author Organization [facility] Address [address] [place] [address] Care Team Providers Care Dumbwaiter Operator Name Role Phone Juma Herrera MD Unavailable Shonda Sánchez NP Primary Care Provider [phone] Encounter Details Date Type Department Care Team (Late st Contact Info) Description 08/03/2021 Specialty Pharmacy [facility] - Main [place] [address] [place], [place] [phone] Yee Rodriguez, [facility] [address] [facility] 23 [place] [address] Social History Tobacco Use Types [...] Office Visit [facility] Bariatric Surgery [facility] 353 [place] [address] Allen Thompson PA-C 111 [facility], Level 5 [place] [address] 10/26/2024 10:45 EST Telemedicine [facility] Neurology - [address] [phone] Sulema Nicole NP [address] [place] [address] Level 2 [place] [phone] documented as of this encounter Visit Diagnoses Not on filedocumented in this encounter Care Teams Dumbwaiter Operator Relationship Specialty Start Date End Date Shonda Sánchez NP [address] [place] [address] [address] [place] [phone] PCP - General 03/14/21 01/31/22 Juma Herrera MD [address] [place] [phone] 12/08/18 documented as of this encounter
--- OUTSIDE RECORDS SUMMARY | 2024-09-17 09:10 | XMS_ITS | Encounter Summary ---
Author Organization [facility] Address [address] [place] [address] Care Team Providers Care Boiler Setter Name Role Phone Juma Herrera MD Unavailable Shonda Sánchez NP Primary Care Provider [phone] Reason for Referral * Radiology Services (Routine/Next Available) - Closed Specialty Diagnoses / Procedures [facility] Referred To Contact Radiology Diagnoses Chronic right shoulder pain Procedures MR SHOULDER WO CONTRAST RIGHT Jun Balbuena MD Phone: tel: fax: [facility] Referral ID Status Reason Start Date Expiration Date Visits Re quested Visits Authorized [id number] Closed 09/12/2021 1 1 Reason for Visit * Radiology Services (Routine/Next Available) - Closed Specialty Diagnoses / Procedures [facility] Referred To Contact Radiology Diagnoses Chronic right shoulder pain Procedures MR SHOULDER WO CONTRAST RIGHT Jun Balbuena MD Phone: tel: fax: [facility] Referral ID Status Reason Start Date Expiration Date Visits Re quested Visits Authorized [id number] Closed 09/12/2021 1 1 Encounter Details Date Type Department Care Team (Latest Contact Info) Description 10/05/2021 12:22 EST [facility] Radiology MRI - Main [place] [address] [place], [place] [address] Chronic right shoulder pain Discharge Disposition: Home [...] Info) Description 09/18/2024 11:00 EST Office Visit [facility] B[facility]ric Surgery [facility] [address] [place] [address] Allen Thompson PA-C 111 [facility], Level 5 [place] [phone] 10/26/2024 10:45 EST Telemedicine [facility] Neurology - [address] [phone] Sulema Nicole NP [address] [place] [address] Level 2 [place] [phone] documented as of this encounter Procedures Procedure [...] multiplanar and multisequence MR [facility]. No contrast was administered. [...] region documented in this encounter Care Teams Boiler Setter Relationship Specialty Start Date End Date Shonda Sánchez NP [address] [place] [address] [address] [place] [phone] PCP - General 03/14/21 01/31/22 Juma Herrera MD [address] [facility] [place] [phone] 12/08/18 documented as of this encounter
--- OUTSIDE RECORDS SUMMARY | 2024-09-17 09:10 | XMS_ITS | Encounter Summary ---
Author Organization [facility] Address [address] [place] [address] Care Team Providers Care Occup Ther Name Role Phone Juma Herrera MD Unavailable Shonda Sánchez NP Primary Care Provider [phone] [facility] Primary Care Provider [phone] Curtis Burns MD Primary Care Provider [phone] Encounter Details Date Type Department Care Team (Late st Contact Info) Description 08/16/2021 Lab Requisition [facility] Pathology & Laboratory Medicine - [facility] [address] [place], [place] [phone] Outr Resulting Lab, Provider Social History Tobacco [...] Visit [facility] Bariatric Surgery [facility] 353 [place] [address] Allen Thompson PA-C [address] [place] [address] 5 [place] [phone] 10/26/2024 10:45 EST Telemedicine [facility] Neurology - [facility] 1 [place], [place] [address] Sulema Nicole NP [address] [place] [address] 2 [place] [phone] documented as of this encounter Procedures Procedure Name Priority Date/Time Associated Diagnosis Comments ZZCOVID-19 TEST [facility] PCR Today 08/15/2021 11:12 EST COVID-19 TESTING Routine 08/15/2021 11:1 2 EST documented in this encounter Results * COVID-19 TEST [facility] PCR (08/15/2021 11:12 EST) Swab 08/15/2021 11:1 2 EST 08/16/2021 16:24 EST us Provider Outr Resulting Lab MICROBIOLOGY - GENER AL ORDERABLES Final Result [facility] [address] [place] [address] * (ABNORMAL) COVID-19 TESTING (08/15/2021 11:12 EST) COVID-19 rt-PCR Result Positive( AA) Negative 08/17/2021 13:01 EST [facility] Comment: This test has [...] developed and its performance characteristics determined by [facility]. It has not been cleared [...] testing. This test is based on the [facility] COVID-19 Emergency Use Authorization (EUA) assay, with minor modification as defined by the FDA Performed on the [employer] 7 Flex RT-PCR System. Performing Lab [facility] 08/17/2021 13:01 EST [facility] Swab 08/15/2021 11:1 2 EST 08/16/2021 16:24 EST us Provider Outr Resulting Lab MICROBIOLOGY - GENER AL ORDERABLES Final Result [facility] [address] [place] [address] documented in this encounter Visit Diagnoses Not on filedocumented in this encounter Additional Health Concerns Infection Onset Date Last Indicated Resolved Time COVID-19 08/15/2021 08/15/2021 09/04/2021 22:1 5 EST documented as of this encounter Care Teams Occup Ther Relationship Specialty Start Date End Date Shonda Sánchez EXPORT ADMINISTRATOR [address] [place] [address] PCP - General 03/14/21 01/31/22 [facility] [address] [place] [address] PCP - General 02/01/22 07/05/22 Curits Burns MD [address] [place] [address] PCP - General Emergency Medicine 07/06/22 Juma Herrera MD [address] [facility] [address] 12/08/18 documented as of this encounter
--- OUTSIDE RECORDS SUMMARY | 2024-09-17 09:10 | XMS_ITS | Encounter Summary ---
Author Organization [facility] Address [address] [place] [address] Care Team Providers Care Theatrical Variety Agent Name Role Phone Juma Herrera MD Unavailable Shonda Sánchez RAWHIDE BONE ROLLER Primary Care Provider [phone] Encounter Details Date Type Department Care Team (Late st Contact Info) Description 12/22/2021 Specialty Pharmacy [facility] Ambulatory Pharmacy - [address] [phone] Kelechi Panda [facility] Social History Tobacco Use Types [...] documented in this encounter Progress Notes * Kelechi Panda [facility] - 12/22/2021 0902 EDT [facility]: [facility] dose increase Patient increasing [...] has any further increases. Kelechi Panda, PharmD [facility] Ambulatory Pharmacist Clinician- Neurology 12/22/2021 documented in this encounter Plan of Treatment Upcoming Encounters Date Type Department Care Team (Late st Contact Info) Description 09/18/2024 11:00 EST Office Visit [facility] Bariatric Surgery - [place] [address] [place] [address] Allen Thompson PA-C [address] [place] [address] 5 [place] [phone] 10/26/2024 10:45 EST Telemedicine [facility] Neurology - [address] [address] Sulema Nicole, RAWHIDE BONE ROLLER 1 [facility], Level 2 [place] [address] documented as of this encounter Visit Diagnoses Not on filedocumented in this encounter Care Teams Theatrical Variety Agent Relationship Specialty Start Date End Date Shonda Sánchez NP [address] [place] [address] PCP - General 03/14/21 01/31/22 Juma Herrera MD [address] [facility] [place] [address] 12/08/18 documented as of this encounter
--- OUTSIDE RECORDS SUMMARY | 2024-09-17 09:10 | XMS_ITS | Encounter Summary ---
Author Organization [facility] Address [address] [place] [address] Care Team Providers Care Brick Paving Checker Name Role Phone Juma Herrera MD Unavailable Shonda Sánchez DIGITAL FIELD SERVICE TECHNICIAN Primary Care Provider [phone] Reason for Visit * Reason Onset Date Comments Migraine 01/03/2022 Encounter Details Date Type Department Care Team (Late st Contact Info) Description 01/03/2022 Telephone [facility] Neurology - S [place] [address] [place] [phone] Kj Gloria MD PhD 1 [facility] 2 [place] [address] Migraine Social History Tobacco Use [...] Office Visit [facility] Bariatric Surgery - [place] [address] [place] [address] Allen Thompson PA-C 111 [facility], Level 5 [place] [phone] 10/26/2024 10:45 EST Telemedicine [facility] Neurology - [address] [address] Sulema Nicole NP 1 [facility] 2 [place] [address] documented as of this encounter Visit Diagnoses Not on filedocumented in this encounter Care Teams Brick Paving Checker Relationship Specialty Start Date End Date Shonda Sánchez NP [address] [place] [phone] PCP - General 03/14/21 01/31/22 Juma Herrera MD [address] [facility] [facility] [place] [address] 12/08/18 documented as of this encounter
--- OUTSIDE RECORDS SUMMARY | 2024-09-17 09:11 | XMS_ITS | Encounter Summary ---
Author Organization [facility] Address [address] [place] [address] Care Team Providers Care Statistical Typist Name Role Phone Juma Herrera MD Unavailable Shonda Sánchez OIL PAINT SHADER Primary Care Provider [phone] Encounter Details Date Type Department Care Team [...] Info) Description 09/18/2024 11:00 EST Office Visit [facility] Bariatric Surgery [address] [address] Allen Thompson, PA-C 111 [facility] 5 [place] [phone] 10/26/2024 10:45 EST Telemedicine [facility] Neurology - [address] [phone] Sulema Nicole NP 1 [facility] 2 [place] [phone] documented as of this encounter Visit Diagnoses Not on filedocumented in this encounter Care Teams Statistical Typist Relationship Specialty Start Date End Date Shonda Sánchez NP [address] [place] [address] [address] [place] [phone] PCP - General 03/14/21 01/31/22 Juma Herrera MD [address] [facility] [place] [address] (work) 12/08/18 documented as of this encounter
--- OUTSIDE RECORDS SUMMARY | 2024-09-17 09:11 | XMS_ITS | Encounter Summary ---
Author Organization [facility] Address [address] [place] [address] Care Team Providers Care Metal Fabricator Welder Name Role Phone Juma Herrera MD Unavailable Shonda Sánchez NP Primary Care Provider [phone] Reason for Visit * Reason Comments Neck Pain Headache Back Pain * Office Procedure (Routine) - Specialty Report Received Specialty Diagnoses / Procedures [facility] Referred To Contact Pain Medicine Diagnoses Other cervical disc degeneration, unspecified cervical region Sacroiliitis, not elsewhere classified ([facility]) c6 c7 see Procedures [facility] NJX DX/THER SBST INTRLMNR CRV/THRC W/IMG GDN PROCEDURE MEDIUM [facility] Interventional Pain [address] [place] [address] Phone: tel: fax: Catalino Garrett MD [address] [place] [address] Phone: tel: fax: Referral ID Status Reason Start Date Expiration Date V isits Requested Visits Authorized [id number] Specialty Report Received 1 1 Encounter Details Date Type Department Care Team (Latest Contact Info) Description 04/05/2021 10:[address] [facility] Interventional Pain [address] [place] [address] Catalino Garrett MD [address] [facility] [address] [place] [address] DDD (degenerative disc disease), cervical (Primary [...] 04/05/2021 10:15 EDT [facility] [address] [phone] Patient Instructions You have had your cervical [...] Management Rooming Note Does patient have a Drafter Structural? yes Is patient NPO? (Solids since midnight [...] Rooney : 1975 Date of Service: 04/05/2021 Warp Preparer: Gerry MEHTA Apprenticeship Training Representative: none Procedure: Therapeutic cervical epidural steroid injections [...] reviewed with the patient, provider, nurse/MA, and office equipment technician in the room prior to local [...] Info) Description 09/18/2024 11:00 EST Office Visit [facility] Bariatric Surgery - [address] [address] Allen Thompson PA-C [address] [place] [address], Level 5 [place] [phone] 10/26/2024 10:45 EST Telemedicine [facility] Neurology - S [place] 1 [place] [address] Sulema Nicole NP [address] [place] [address] Level 2 [place] [phone] documented as of this encounter Visit Diagnoses [...] mg documented in this encounter Care Teams Metal Fabricator Welder Relationship Specialty Start Date End Date Shonda Sánchez NP [address] [facility] [place] [address] PCP - General 03/14/21 01/31/22 Juma Herrera MD [address] [facility] [place] [address] 12/08/18 documented as of this encounter
--- OUTSIDE RECORDS SUMMARY | 2024-09-17 09:11 | XMS_ITS | Encounter Summary ---
Author Organization [facility] Address [address] [place] [address] Care Team Providers Care Cream Separator Operator Name Role Phone Juma Herrera MD Unavailable Shonda Sánchez NP Primary Care Provider [phone] Encounter Details Date Type Department Care Team (Late st Contact Info) Description 06/06/2021 Specialty Pharmacy [facility] Ambulatory Pharmacy - [facility] 111 [place], [place] [phone] Yee Rodriguez, [facility] [address] [facility] 23 [place] [address] Social History Tobacco Use Types [...] NATALY Nina Hernandez documented in this encounter Plan of Treatment Upcoming Encounters Date Type Department Care Team (Late st Contact Info) Description 09/18/2024 11:00 EST Office Visit [facility] Bariatric Surgery [facility] [address] [place], [place] [address] Allen Thompson, PALizettC 111 [facility] 5 [place] [phone] 10/26/2024 10:45 EST Telemedicine [facility] Neurology - [address] [place] 1 [place], [place] [phone] Sulema Nicole NP 1 [facility] Level 2 [place] [address] documented as of this encounter Visit Diagnoses Not on filedocumented in this encounter Care Teams Cream Separator Operator Relationship Specialty Start Date End Date Shonda Sánchez NP [address] [place], [place] [address] [address] [place] [address] PCP - General 03/14/21 01/31/22 Juma Herrera MD [address] [place] [place] [address] 12/08/18 documented as of this encounter
--- OUTSIDE RECORDS SUMMARY | 2024-09-17 09:11 | XMS_ITS | Encounter Summary ---
Author Organization [facility] Address [address] [place] [address] Care Team Providers Care Industrial Laborer Name Role Phone Juma Herrera MD Unavailable Shonda Sánchez THREADING MACHINE OPERATOR Primary Care Provider [phone] Encounter Details Date Type Department Care Team (Latest Contact Info) Description 04/05/2021 7:38 EDT - 04/05/2021 23:59 EDT Hospital Encounter [facility] Xray [address] [place], [place] [phone] Discharge Disposition: Home or Self Care Social [...] Info) Description 09/18/2024 11:00 EST Office Visit [facility] Bariatric Surgery - [place] [address] [place], [place] [address] Allen Thompson PA-C 111 [facility], Level 5 [place] [phone] 10/26/2024 10:45 EST Telemedicine [facility] Neurology - [address] [place] 1 [place] [address] Sulema Nicole NP 1 [facility], Level 2 [place] [phone] documented as of this encounter Procedures Procedure [...] filedocumented in this encounter Care Teams Industrial Laborer Relationship Specialty Start Date End Date Shonda Sánchez NP [address] [place] [address] [address] [place] [address] PCP - General 03/14/21 01/31/22 Juma Herrera MD [address] [facility] [place] [address] 12/08/18 documented as of this encounter
--- OUTSIDE RECORDS SUMMARY | 2024-09-17 09:11 | XMS_ITS | Encounter Summary ---
Author Organization [facility] Address [address] [place] [address] Care Team Providers Care Private Investigator Surveillance Name Role Phone Juma Herrera MD Unavailable Shonda Sánchez FLEET MANAGER/DISPATCH Primary Care Provider [phone] Reason for Visit * Reason Comments Neck Pain Knee Pain right side Back Pain Leg Pain right side Encounter Details Date Type Department Care Team (Latest Contact Info) Description 06/22/2021 16:30 EDT Office Visit [facility] Interventional Pain 62 [facility] [place] [address] Catalino Garrett MD [address] [facility] [address] [place] [address] Sacroiliitis, not elsewhere classified (HCC-CMS) [...] of Assessment Author Yes 09/15/2018 7:52 Nina Pñealoza an documented as of this encounter Mental [...] Leg Pain right side Physician Requesting Consultation: Juam Herrera MD History of Present Illness: Ms. [...] Arthritis ??? Back pain ??? Bipolar disorder ([facility]) ??? Breathing problem ??? Depression ??? Diabetes mellitus ([facility]) ?[facility] Drug abuse ([facility]) ([facility]) ??? Environmental allergies ??? Eye problem ??? Generalized headaches ??? Headache(784.0) ??? Heart disease ??? History of substance abuse (HCC-CMS) ([facility]) ??? Hypertension ??? Kidney disease ??? Mental disorder ??? Nervousness(799.21) ??? Numbness ??? Personality disorder ([facility]-CMS) ([facility]) ??? Plantar fasciitis ??? PTSD (post-traumatic stress [...] and Family: Not on file ??? Attends Hoahaoism Services: Not on file ??? Active Member [...] Assessment/Plan: 1. Sacroiliitis, not elsewhere classified (HCC-CMS) ([facility]) 2. Disc disease, degenerative, cervical SIJ inj [...] [facility] Bariatric Surgery - [address] [address] Allen Thompson, MARGARITA-C 111 [facility] 5 [place] [address] 10/26/2024 10:45 EST Telemedicine [facility] Neurology - [address] [address] Sulema Nicole NP [address] [place] [address] Level 2 [place] [phone] documented as of this encounter Visit Diagnoses Diagnosis Sacroiliitis, not elsewhere classified (HCC-CMS)- Primary Sacroiliitis, not elsewhere classified Disc disease, degenerative, cervical Degeneration of cervical intervertebral disc documented in this encounter Care Teams Private Investigator Surveillance Relationship Specialty Start Date End Date Shonda Sánchez NP [address] [place] [address] PCP - General 03/14/21 01/31/22 Juma Herrera MD [address] [place] [address] 12/08/18 documented as of this encounter
--- OUTSIDE RECORDS SUMMARY | 2024-09-17 09:11 | XMS_ITS | Encounter Summary ---
Author Organization [facility] Address [address] [place] [address] Care Team Providers Care Cellulose Insulation Helper Name Role Phone Juma Herrera MD Unavailable Shonda Sánchez NP Primary Care Provider [phone] [facility] Primary Care Provider [phone] Curtis Burns MD Primary Care Provider [phone] Reason for Referral * Radiology Services (Routine/Next Available) - Closed Specialty Diagnoses / Procedures [facility] Referred To Contact Diagnoses Back pain, unspecified back location, unspecified back pain laterality, unspecified chronicity Procedures XR ENTIRE SPINE 2-3 VIEWS Kj Child MD Phone: tel: fax: [facility] Referral ID Status Reason Start Date Expiration Date Visits Re quested Visits Authorized [id number] Closed 07/17/2021 1 1 Encounter Details Date Type Department Care Team (Late st Contact Info) Description 07/17/2021 Orders Only [facility] Spine Program - [facility] [place] [address] Kj Child MD [address] [place] [address] [place] [address] Back pain, unspecified back location, [...] Info) Description 09/18/2024 11:00 EST Office Visit [facility] Bariatric Surgery [facility] [place] [address] Allen Thompson PA-C 111 [facility], [facility], Level 5 [place] [address] 10/26/2024 10:45 EST Telemedicine [facility] Neurology - [address] [place] 1 [place], [place] [phone] Sulema Nicole NP 1 [facility], Level 2 [place] [address] documented as of this encounter Results * [...] documented as of this encounter Care Teams Cellulose Insulation Helper Relationship Specialty Start Date End Date Shonda Sánchez NP [address] [place] [phone] PCP - General 03/14/21 01/31/22 [facility] [address] [place] [address] PCP - General 02/01/22 07/05/22 Curtis Burns MD [address] [place] [address] PCP - General Emergency Medicine 07/06/22 Juma Herrera MD [address] [facility] [place] [address] 12/08/18 documented as of this encounter
--- OUTSIDE RECORDS SUMMARY | 2024-09-17 09:11 | XMS_ITS | Encounter Summary ---
Author Organization [facility] Address [address] [place] [address] Care Team Providers Care Arbitrator Name Role Phone Juma Herrera MD Unavailable Shonda Sánchez PNEUMATIC DEICER INSPECTOR Primary Care Provider [phone] Reason for Visit * Reason Comments Follow-up Telemedicine Video Visit Encounter Details Date Type Department Care Team (Late st Contact Info) Description 06/27/2021 11:30 EDT Telemedicine [facility] Neurology - S [address] [phone] Kj Gloria MD PhD 1 [facility] 2 [place] [address] Chronic migraine without aura without [...] Info) Description 09/18/2024 11:00 EST Office Visit [facility] Bariatric Surgery - [address] [address] Allen Thompson, PALizettC [address] [facility], Level 5 [place] [phone] 10/26/2024 10:45 EST Telemedicine [facility] Neurology - S [place] 1 [place], [place] [address] Sulema Nicole NP 1 [facility], Level 2 [place] [address] documented as of this encounter Visit Diagnoses Diagnosis Chronic migraine without aura without status migrainosus, not intractable- Primary Chronic migraine without aura, without mention of intractable migraine without mention of status migrainosus documented in this encounter Care Teams Arbitrator Relationship Specialty Start Date End Date Shonda Sánchez NP [address] [facility] [address] [place] [address] PCP - General 03/14/21 01/31/22 Juma Herrera MD [address] [facility] [place] [phone] 12/08/18 documented as of this encounter
--- OUTSIDE RECORDS SUMMARY | 2024-09-17 09:11 | XMS_ITS | Encounter Summary ---
Author Organization [facility] Address [address] [place] [address] Care Team Providers Care Clinical Trials Assistant Name Role Phone Juma Herrera MD Unavailable Shonda Sánchez RAILROAD WHEELS AND AXLE INSPECTOR Primary Care Provider [phone] Encounter Details Date Type Department Care Team [...] [facility] Bariatric Surgery [address] [address] Allen Thompson, PA-C 111 [facility] 5 [place] [phone] 10/26/2024 10:45 EST Telemedicine [facility] Neurology - [address] [phone] Sulema Nicole NP [address] [facility] 2 [place] [phone] documented as of this encounter Visit Diagnoses Not on filedocumented in this encounter Care Teams Clinical Trials Assistant Relationship Specialty Start Date End Date Shonda Sánchez NP [address] [place] [address] [address] [place] [phone] PCP - General 03/14/21 01/31/22 Juma Herrera MD [address] [facility] [address] (work) 12/08/18 documented as of this encounter
--- OUTSIDE RECORDS SUMMARY | 2024-09-17 09:11 | XMS_ITS | Encounter Summary ---
Author Organization [facility] Address [address] [place] [address] Care Team Providers Care Bankruptcy Legal Assistant Name Role Phone Juma Herrera MD Unavailable Juma Herrera MD Primary Care Provider [phone] Shonda Sánchez VOUCHER EXAMINER Primary Care Provider [phone] Reason for Visit * Reason Onset Date Comments Appointment Related 02/24/2021 Encounter Details Date Type Department Care Team (Late st Contact Info) Description 02/24/2021 Telephone [facility] Neurology - S [address] [address] Kj Gloria MD PhD [address] [place] [address] 2 [place] [address] Appointment Related Social History Tobacco [...] 06/27/21 at 11:30 AM Confirmed email - [email or web address] Scheduling Needed * Telephone Encounter - [...] Info) Description 09/18/2024 11:00 EST Office Visit [facility] Bariatric Surgery - [place] [address] [place] [address] Allen Thompson PA-C 111 [facility], Level 5 [place] [phone] 10/26/2024 10:45 EST Telemedicine [facility] Neurology - [address] [address] Sulema Nicole VOUCHER EXAMINER 1 [facility] 2 [place] [address] documented as of this encounter Visit Diagnoses Not on filedocumented in this encounter Care Teams Bankruptcy Legal Assistant Relationship Specialty Start Date End Date Juma Herrera MD [address] [employer] [address] PCP - General 01/07/19 03/13/21 Shonda Sánchez NP [address] [place] [address] [address] [place] [address] PCP - General 03/14/21 01/31/22 Juma Herrera MD [address] [employer] [place] [address] 12/08/18 documented as of this encounter
--- OUTSIDE RECORDS SUMMARY | 2024-09-17 09:11 | XMS_ITS | Encounter Summary ---
Author Organization [facility] Address [address] [place] [address] Care Team Providers Care Explosive Expert Name Role Phone Juma Herrera MD Unavailable Juma Herrera MD Primary Care Provider [phone] Reason for Visit * Reason Comments Knee Pain bilateral but most r ight Encounter Details Date Type Department Care Team (Latest Contact Info) Description 12/19/2020 16:[address] [facility] Interventional Pain 62 [place] [address] Catalino Garrett MD [address] [facility] [address] [place] [address] Chronic pain of right knee [...] file Gets together: Not on file Attends faith service: Not on file Active member of [...] Info) Description 09/18/2024 11:00 EST Office Visit [facility] Bariatric Surgery - [place] [address] [place] [address] Allen Thompson PA-C 111 [facility], [facility], Level 5 [place] [phone] 10/26/2024 10:45 EST Telemedicine [facility] Neurology - [address] [place] 1 [place], [place] [phone] Sulema Nicole OFFICE MACHINE TECHNICIAN 1 [facility], Level 2 [place] [address] documented as of this encounter Visit Diagnoses Diagnosis Chronic pain of right knee- Primary Sacroiliitis (HCC-CMS) Sacroiliitis, not elsewhere classified DDD (degenerative disc disease), cervical Degeneration of cervical intervertebral disc documented in this encounter Care Teams Explosive Expert Relationship Specialty Start Date End Date Juma Herrera MD [address] [place] [address] PCP - General 01/07/19 03/13/21 Juma Herrera MD [address] [place] [address] 12/08/18 documented as of this encounter
--- OUTSIDE RECORDS SUMMARY | 2024-09-17 09:11 | XMS_ITS | Encounter Summary ---
Author Organization [facility] Address [address] [place] [address] Care Team Providers Care Wind Farm Engineer Name Role Phone Juma Herrera MD Unavailable Juma Herrera MD Primary Care Provider [phone] Reason for Visit * Reason Comments Pain everywhere * Office Procedure (Routine) - Specialty Report Received Specialty Diagnoses / Procedures [facility] Referred To Contact Pain Medicine Diagnoses Other cervical disc degeneration, unspecified cervical region Sacroiliitis, not elsewhere classified ([facility]) Si joint inj Procedures HI INJECT SI JOINT ARTHRGRPHY&/ANES/STEROID W/IMAGE PROCEDURE SHORT [facility] Interventional Pain [address] [place] [address] Phone: tel: fax: Catalino Garrett MD [address] [address] Phone: tel: fax: Referral ID Status Reason Start Date Expiration Date V isits Requested Visits Authorized [id number] Specialty Report Received 1 1 Encounter Details Date Type Department Care Team (Latest Contact Info) Description 01/12/2021 9:00 EDT Procedure visit [facility] Interventional Pain [address] [place] [address] Catalino Garrett MD [address] [employer] [address] [place] [address] Sacroiliitis ([facility]) (Primary Dx); DDD (degenerative disc disease), cervical; [...] 01/12/2021 9:00 EDT [facility] [address] [phone] Patient Instructions You have had your bilateral [...] Candida Virgen MA - 01/12/2021 0900 EDT [facility] [facility] Rooming Note Does patient have a Merchandising Specialist? yes Is patient NPO? (Solids since [...] Other: * Millie Nunez RN - 01/12/2021 0900 EDT ATTENTION: An [...] of Service: 01/12/2021 Requesting physician: Dr. Herrera Broadcast Director Operations: Catalino Garrett MD C4 Planner: none Procedure: Diagnostic and Therapeutic sacroiliac joint [...] Office Visit [facility] Bariatric Surgery - [address] [address] Allen Thompson PA-C 111 [facility] 5 [place] [phone] 10/26/2024 10:45 EST Telemedicine [facility] Neurology - [address] [phone] Sulema Nicole NP [address] [place] [address] Level 2 [place] [phone] documented as of this encounter Visit Diagnoses Diagnosis Sacroiliitis ([facility])- Primary Sacroiliitis, not elsewhere classified DDD (degenerative [...] may reflect changes made after this encounter. busPIRone (BUSPAR) 30 mg tablet Take 1 Tablet by mouth 2 times daily. added in this encounter Care Teams Wind Farm Engineer Relationship Specialty Start Date End Date Juma Herrera MD [address] [place] [address] PCP - General 01/07/19 03/13/21 Juma Herrera MD [address] [place] [address] 12/08/18 documented as of this encounter
--- OUTSIDE RECORDS SUMMARY | 2024-09-17 09:11 | XMS_ITS | Encounter Summary ---
Author Organization [facility] Address [address] [place] [address] Care Team Providers Care Senior Mainframe Developer Name Role Phone Juma Herrera MD Unavailable Shonda Sánchez WEIGHER OPERATOR Primary Care Provider [phone] Encounter Details Date Type Department Care Team [...] Description 09/18/2024 11:00 EST Office Visit [facility] Bariatric Surgery [address] [address] Allen Thompson, PA-C 111 [facility] 5 [place] [phone] 10/26/2024 10:45 EST Telemedicine [facility] Neurology - [address] [phone] Sulema Nicole NP 1 [facility] 2 [place] [phone] documented as of this encounter Visit Diagnoses Not on filedocumented in this encounter Care Teams Senior Mainframe Developer Relationship Specialty Start Date End Date Shonda Sánchez NP [address] [place] [address] [address] [place] [phone] PCP - General 03/14/21 01/31/22 Juma Herrera MD [address] [facility] [place] [address] (work) 12/08/18 documented as of this encounter
--- OUTSIDE RECORDS SUMMARY | 2024-09-17 09:11 | XMS_ITS | Encounter Summary ---
Author Organization [facility] Address [address] [place] [address] Care Team Providers Care Sort Worker Name Role Phone Juma Herrera MD Unavailable Shonda Sánchez NP Primary Care Provider [phone] Reason for Visit * Reason Comments Pain * Office Procedure (Routine) - Specialty Report Received Specialty Diagnoses / Procedures [facility] Referred To Contact Pain Medicine Diagnoses Sacroiliitis, not elsewhere classified (HCC-CMS) Pain in right knee Other cervical disc degeneration, unspecified cervical region repeat si joint injection Procedures AK INJECT SI JOINT ARTHRGRPHY&/ANES/STEROID W/IMAGE PROCEDURE SHORT [facility] Interventional Pain [address] [place] [address] Phone: tel: fax: Catalino Garrett MD [address] [employer] [address] [place] [address] Phone: tel: fax: Referral ID Status Reason Start Date Expiration Date V isits Requested Visits Authorized [id number] Specialty Report Received 1 1 Encounter Details Date Type Department Care Team (Latest Contact Info) Description 05/17/2021 9:30 EDT Procedure visit [facility] Interventional Pain [address] [place] [address] Catalino Garrett MD [address] [place] [address] Sacroiliitis (HCC-CMS) (Primary Dx); Chronic pain [...] Author No 09/05/2015 12:00 hKoa Peñaloza * Do you have difficulty dressing [...] 9:30 EDT [facility] [place] [phone] Patient Instructions You have had your bilateral [...] Candida Virgen MA - 05/17/2021 0930 EDT [place] [facility] Rooming Note Does patient have a Pediatrician Active Practice? yes Is patient NPO? (Solids since midnight [...] of Service: 05/17/2021 Requesting physician: Dr. Herrera Tool Straightener: Catalino Garrett MD Translator Deaf: Dr. Saldaña Procedure: Diagnostic and Therapeutic sacroiliac [...] benefits, and alternatives were thoroughly explained to Tia Rooney who verbally communicated understanding of [...] MEHTA * Albina Cain RN - 05/17/2021 0997 EDT ATTENTION: This Checklist should be reviewed with the patient, provider, nurse/MA, and radiology receptionist in the room prior to local anesthetic [...] [facility] Bariatric Surgery - [address] [place] [address] Allen Thompson PA-C 111 [facility] 5 [place] [address] 10/26/2024 10:45 EST Telemedicine [facility] Neurology - S [address] [phone] Sulema Nicole NP [address] [place] [address], Level 2 [place] [phone] documented as of this encounter Visit Diagnoses Diagnosis Sacroiliitis ([facility])- Primary Sacroiliitis, not elsewhere classified Chronic pain [...] mg documented in this encounter Care Teams Sort Worker Relationship Specialty Start Date End Date Shonda Sánchez NP [address] [facility] [address] [place] [address] PCP - General 03/14/21 01/31/22 Juma Herrera MD [address] [facility] [place] [address] 12/08/18 documented as of this encounter
--- OUTSIDE RECORDS SUMMARY | 2024-09-17 09:11 | XMS_ITS | Encounter Summary ---
Author Organization [facility] Address [address] [place] [address] Care Team Providers Care Asphalt Screed Operator Name Role Phone Juma Herrera MD Unavailable Shonda Sánchez NP Primary Care Provider [phone] Encounter Details Date Type Department Care Team (Late st Contact Info) Description 05/12/2021 Specialty Pharmacy [facility] - Main [place] [address] [place], [place] [phone] Yee Rodriguez, [facility] [address] [facility] 23 [place] [address] Social History Tobacco Use Types [...] Description 09/18/2024 11:00 EST Office Visit [facility] Bariatric Surgery [facility] [address] [place] [address] Allen Thompson PA-C 111 [facility] 5 [place] [address] 10/26/2024 10:45 EST Telemedicine [facility] Neurology - [address] [phone] Sulema Nicole NP [address] [place] [address] 2 [place] [phone] documented as of this encounter Visit Diagnoses Not on filedocumented in this encounter Care Teams Asphalt Screed Operator Relationship Specialty Start Date End Date Shonda Sánchez NP [address] [place] [address] [address] [place] [phone] PCP - General 03/14/21 01/31/22 Juma Herrera MD [address] [place] [place] [address] 12/08/18 documented as of this encounter
--- OUTSIDE RECORDS SUMMARY | 2024-09-17 09:11 | XMS_ITS | Encounter Summary ---
Author Organization [facility] Address [address] [place] [address] Care Team Providers Care Store Loss Prevention Manager Name Role Phone Juma Herrera MD Unavailable Shonda Sánchez INSTITUTIONAL COMMODITY ANALYST Primary Care Provider [phone] Encounter Details Date Type Department Care Team [...] 09/18/2024 11:00 EST Office Visit [facility] Bariatric Surgery [address] [address] Allen Thompson, PA-C 111 [facility] 5 [place] [phone] 10/26/2024 10:45 EST Telemedicine [facility] Neurology - [address] [phone] Sulema Nicole NP 1 [facility] 2 [place] [phone] documented as of this encounter Visit Diagnoses Not on filedocumented in this encounter Care Teams Store Loss Prevention Manager Relationship Specialty Start Date End Date Shonda Sánchez NP [address] [place] [address] [address] [place] [phone] PCP - General 03/14/21 01/31/22 Juma Herrera MD [address] [facility] [place] [address] (work) 12/08/18 documented as of this encounter
--- OUTSIDE RECORDS SUMMARY | 2024-09-17 09:11 | XMS_ITS | Encounter Summary ---
Author Organization [facility] Address [address] [place] [address] Care Team Providers Care Chute Greaser Name Role Phone Juma Herrera MD Unavailable Juma Herrera MD Primary Care Provider [phone] Reason for Visit * Reason Onset Date Comments Medication Management 03/09/2021 Encounter Details Date Type Department Care Team (Late st Contact Info) Description 03/09/2021 Telephone [facility] Neurology - S [place] [address] [place] [phone] Kj Gloria MD PhD 1 [facility] 2 [place] [phone] Medication Management Social History Tobacco Use Types [...] Miscellaneous Notes * Telephone Encounter - Milena Mccarthy RN - [...] was approved for use by the FDA. [id number]- appeal to pharmacist; decision within 72 hours. [...] Info) Description 09/18/2024 11:00 EST Office Visit [facility] Bariatric Surgery - [place] [address] [place] [address] Allen Thompson PA-C 111 [facility], Level 5 [place] [address] 10/26/2024 10:45 EST Telemedicine [facility] Neurology - S [address] [address] Sulema Nicole, STATOR CONNECTOR 1 [facility] 2 [place] [phone] documented as of this encounter Visit Diagnoses Not on filedocumented in this encounter Care Teams Chute Greaser Relationship Specialty Start Date End Date Juma Herrera MD [address] [place] [address] PCP - General 01/07/19 03/13/21 Juma eHrrera MD [address] [place] [address] 12/08/18 documented as of this encounter
--- OUTSIDE RECORDS SUMMARY | 2024-09-17 09:11 | XMS_ITS | Encounter Summary ---
Author Organization [facility] Address [address] [place] [address] Care Team Providers Care Grinder Lap Name Role Phone Juma Herrera MD Unavailable Shonda Sánchez STUDIO OPERATION ENGINEER Primary Care Provider [phone] Encounter Details Date Type Department Care Team (Latest Contact Info) Description 05/17/2021 7:56 EDT - 05/17/2021 23:59 EDT Hospital Encounter [facility] Xray [address] [place], [place] [phone] Discharge Disposition: Home or Self Care Social [...] Description 09/18/2024 11:00 EST Office Visit [facility] Bariatric Surgery - [place] [address] [place], [place] [address] Allen Thompson PA-C 111 [facility], Level 5 [place] [phone] 10/26/2024 10:45 EST Telemedicine [facility] Neurology - S [place] 1 [place] [address] Sulema Nicole NP 1 [facility], Level 2 [place] [phone] documented as of this encounter Procedures Procedure Name Priority Date/Time Associated Diagnosis Comments PAIN CLINIC FL SACROILIAC JOINT INJECTION Routine 05/17/2021 10:02 EDT documented in this encounter Results * PAIN CLINIC FL SACROILIAC JOINT INJECTION (05/17/2021 10:02 EDT) Narrative 05/17/2021 10:02 EDT This is a non-reportable exam. us Catalino Garrett MD IMG OTHER IMAGING ORDERABLES Fin al Result documented in this encounter Visit Diagnoses Not on filedocumented in this encounter Care Teams Grinder Lap Relationship Specialty Start Date End Date Shonda Sánchez NP [address] [place] [phone] PCP - General 03/14/21 01/31/22 Juma Herrera MD [address] [facility] [place] [phone] 12/08/18 documented as of this encounter
--- OUTSIDE RECORDS SUMMARY | 2024-09-17 09:11 | XMS_ITS | Encounter Summary ---
Author Organization [facility] Address [address] [place] [address] Care Team Providers Care Brass Buffer Name Role Phone Juma Herrera MD Unavailable Shonda Sánchez POLYSILICON PREPARATION WORKER Primary Care Provider [phone] Reason for Visit * Reason Onset Date Comments Appointment Related 06/21/2021 Encounter Details Date Type Department Care Team (Late st Contact Info) Description 06/21/2021 Telephone [facility] Interventional Pain [address] [facility] [place] [address] Catalino Garrett MD [address] [facility] [address] [place] [address] Appointment Related Social History Tobacco [...] Telephone Encounter - Fang Collazo - 06/21/2021 3634 EDT Called patient to remind her of her 4:30 Follow Up tomorrow with Dr. Garrett and to please arrive at 3:45 documented in this encounter Plan of Treatment Upcoming Encounters Date Type Department Care Team (Late st Contact Info) Description 09/18/2024 11:00 EST Office Visit [facility] Bariatric Surgery - [address] [address] Allen Thompson PA-C [address] [place] [address] 5 [place] [phone] 10/26/2024 10:45 EST Telemedicine [facility] Neurology - [address] [phone] Sulema Nicole NP [address] [place] [address] 2 [place] [phone] documented as of this encounter Visit Diagnoses Not on filedocumented in this encounter Care Teams Brass Buffer Relationship Specialty Start Date End Date Shonda Sánchez NP [address] [place] [address] [address] [place] [phone] PCP - General 03/14/21 01/31/22 Juma Herrera MD [address] [place] [address] 12/08/18 documented as of this encounter
--- OUTSIDE RECORDS SUMMARY | 2024-09-17 09:11 | XMS_ITS | Encounter Summary ---
Author Organization [facility] Address [address] [place] [address] Care Team Providers Care Make Ready Mechanic Name Role Phone Juma Herrera MD Unavailable Shonda Sánchez ROLL PLUGGER Primary Care Provider [phone] Encounter Details Date Type Department Care Team (Late st Contact Info) Description 04/05/2021 Specialty Pharmacy [facility] Ambulatory Pharmacy - [facility] [address] [place], [place] [phone] Yee Rodriguez, [facility] [address] [facility] 23 [place] [address] Social History Tobacco Use Types [...] documented in this encounter Progress Notes * Charlotte Bhatti [...] going. Charlotte Navas, PharmD Ambulatory Pharmacist Clinician [facility] 04/07/2021 documented in this encounter Plan of Treatment Upcoming Encounters Date Type Department Care Team (Late st Contact Info) Description 09/18/2024 11:00 EST Office Visit [facility] Bariatric Surgery - [address] [address] Allen Thompson PA-C [address] [place] [address] 5 [place] [phone] 10/26/2024 10:45 EST Telemedicine [facility] Neurology - [address] [place] 1 [place], [place] [address] Sulema Nicole, ROLL PLUGGER 1 [facility], Level 2 [place] [phone] documented as of this encounter Visit Diagnoses Not on filedocumented in this encounter Care Teams Make Ready Mechanic Relationship Specialty Start Date End Date Shonda Sánchez NP [address] [place] [address] [address] [place] [phone] PCP - General 03/14/21 01/31/22 Juma Herrera MD [address] [facility] [address] 12/08/18 documented as of this encounter
--- OUTSIDE RECORDS SUMMARY | 2024-09-17 09:11 | XMS_ITS | Encounter Summary ---
Author Organization [facility] Address [address] [place] [address] Care Team Providers Care Instructional Assistant Name Role Phone Juma Herrera MD Unavailable Juma Herrera MD Primary Care Provider [phone] Reason for Visit * Reason Onset Date Comments Prior Auth, Medication 02/28/2021 Aimovig 7 0mg/mL (Q 28 days) Encounter Details Date Type Department Care Team (Late st Contact Info) Description 02/28/2021 Telephone [facility] Neurology - S [place] [address] [place] [phone] Kj Gloria MD PhD 1 [facility] 2 [place] [phone] Prior Auth, Medication (Aimovig 70mg/mL (Q 28 [...] 12:00 Khao Peñaloza * Do you have serious difficulty [...] Benefits Information: CRK Part D Required Pharmacy: [facility] Preferred Pharmacy: [facility] Prior Authorization Submission Process Medication: Aimovig Insurance: CRK Part D Date PA Request Received: 03/06/2021 PA Submission Date: 03/06/2021 CMOctavio Srivastava: [id number] Submitted by: Hortencai Phone: [phone] * Telephone Encounter - Hortencia Rehman - 02/28/2021 1625 EDT Prior Authorization Denial Medication: Emgality Denial Date: 03/06/2021 Denial Reason: Must have a trial/failure or contraindication to the plan's preferred therapy (Aimiovig). Prior Authorization Submission Process Medication: Emgality (Load & Maint) Insurance: CRK Part D Date PA Request Received: 02/21/2021 PA Submission Date: 03/06/2021 [facility] Srivastava: [id number] Submitted by: Hortencia Phone: [phone] documented in this encounter Plan of Treatment Upcoming Encounters Date Type Department Care Team (Late st Contact Info) Description 09/18/2024 11:00 EST Office Visit [facility] [place] [facility] Bariatric Surgery - [place] [address] [place] [address] Allen Thompson, PA-C 111 [facility] 5 [place] [phone] 10/26/2024 10:45 EST Telemedicine [facility] [place] [facility] Neurology - [address] [phone] Sulema Nicole NP [address] [place] [address] 2 [place] [phone] documented as of this encounter Visit Diagnoses Not on filedocumented in this encounter Care Teams Instructional Assistant Relationship Specialty Start Date End Date Juma Herrera MD [address] [facility] [place] [address] PCP - General 01/07/19 03/13/21 Juma Herrera MD [address] [place] [phone] 12/08/18 documented as of this encounter
--- OUTSIDE RECORDS SUMMARY | 2024-09-17 09:11 | XMS_ITS | Encounter Summary ---
Author Organization [facility] Address [address] [place] [address] Care Team Providers Care Resident Program Specialist Name Role Phone Juma Herrera MD Unavailable Juma Herrera MD Primary Care Provider [phone] Reason for Referral * Medication Prior Authorization (Routine) - Authorized Specialty Diagnoses / Procedures Referred By Wili mireles Referred To Contact Pharmacy Diagnoses Chronic migraine without aura without status migrainosus, not intractable Kj Gloria MD PhD Phone: tel: fax: [facility] Amb[facility]acy - [address] [address] Phone: tel: fax: Referral ID Status Reason Start Date Expiration Date Visits Requested Visits Authorized [id number] Authorized Medication Prior Authorization 1 1 1 [...] To Contact Neurology Diagnoses Migraine Shonda Sánchez, PIT AND AUXILIARIES SUPERVISOR [address] [place] [address] Phone: tel: fax: Kj Gloria MD PhD Phone: tel: fax: Referral ID Status Reason Start Date Expiration Date Visits Re quested Visits Authorized [id number] Closed 1 1 Encounter Details Date Type Department Care Team (Late st Contact Info) Description 02/21/2021 9:00 EDT Telemedicine [facility] Neurology - S [address] [phone] Kj Gloria MD PhD [address] [place] [address] Level 2 [place] [address] Chronic migraine without aura without [...] Take as directed. 6 mL 11 02/21/2021 04/27/2024 documented in this encounter Progress Notes [...] (07/23/12 - 11/07/12) and Dr Dave Ortez ([facility]). Headache onset was ~ 7 years old, [...] Arthritis ??? Back pain ??? Bipolar disorder ([facility]) ??? Breathing problem ??? Depression ??? Diabetes mellitus ([facility]) ??? Drug abuse ([facility]) ??? Environmental allergies ??? Eye problem ??? Generalized headaches ??? Headache(784.0) ??? Heart disease ??? History of substance abuse ([facility]) ??? Hypertension ??? Kidney disease ??? Mental disorder ??? Nervousness(799.21) ??? Numbness ??? Personality disorder ([facility]) ??? Plantar fasciitis ??? PTSD (post-traumatic stress disorder) ??? Tarsal tunnel syndrome Substance use disorder - cocaine (4108-3460) Chronic prescription opioid use Borderline personality Kidney stone Insomnia, snoring, no gasps, [place] = 3 Heart murmur Asthma Endometriosis GERD TBI (age 4 years) Patient Active Problem List Diagnosis Date Noted ??? Chronic migraine without aura without status migrainosus, not intractable 02/21/2021 ??? Morbid obesity with BMI of 45.0-49.9, adult ([facility]) 03/10/2015 ??? Cervicalgia 09/29/2012 ??? Idiopathic peripheral [...] Gatherings with Friends and Family: ??? Attends [employer] Services: ??? Active Member of Clubs or Organizations: ??? Attends Club or Organization Meetings: ??? Marital Status: 7 cups of coffee / 1 cup tea per week. 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 Substance abuse (cocaine) 6750-0877. ROS: A complete 16 point review of [...] COVID-19 rt-PCR Result Negative Negative Performing Lab [facility] Lab ASSESSMENT/PLAN: Chronic migraine with/without aura, medication [...] [facility] Bariatric Surgery - [place] [address] [place] [address] Allen Thompson PALizettC 111 [facility] Level 5 [place] [phone] 10/26/2024 10:45 EST Telemedicine [facility] Neurology - [address] [address] Sulema Nicole NP [address] [place] [address] 2 [place] [address] Scheduled Referrals Name Type Priority [...] may reflect changes made after this encounter. cholecalciferol, Vitamin D3, 25 mcg (1,000 unit) tablet Take 4 Tablets by mouth daily. diphenhydrAMINE-a cetaminophen 25-500 mg tablet Take 1 Tablet by mouth at bedtime as needed. 05/17/2022 potassium chloride (KLOR-CON) 20 mEq packet Take 20 mEq by mouth daily. 05/17/2022 added in this encounter Care Teams Resident Program Specialist Relationship Specialty Start Date End Date Juma Herrera MD [address] [place] [address] [facility] - General 01/07/19 03/13/21 Juma Herrera MD [address] [place] [place] [address] 12/08/18 documented as of this encounter
--- OUTSIDE RECORDS SUMMARY | 2024-09-17 09:11 | XMS_ITS | Encounter Summary ---
Author Organization [facility] Address [address] [place] [address] Care Team Providers Care Construction Helper Name Role Phone Juma Herrera MD Unavailable Shonda Sánchez SKEIN WINDING OPERATOR Primary Care Provider [phone] Encounter Details Date Type Department Care Team (Latest Contact Info) Description 03/20/2021 7:58 EDT - 03/20/2021 23:59 EDT Hospital Encounter [facility] Pain Clinic Xray [address] [place], [place] [phone] Knee pain Discharge Disposition: Home or Self [...] Office Visit [facility] Bariatric Surgery - [address] [place], [place] [phone] Allen Thompson PA-C 111 [facility], [facility], Level 5 [place] [address] 10/26/2024 10:45 EST Telemedicine [facility] Neurology - [place] 1 [place], [place] [address] Sulema Nicole NP 1 [facility], Level 2 [place] [phone] documented as of this encounter Procedures Procedure Name Priority Date/Time Associated Diagnosis Comments PAIN CLINIC [place] PROCEDURE Routine 03/20/2021 8:57 EDT Knee pain documented in this encounter Results * PAIN CLINIC FL PROCEDURE (03/20/2021 8:57 EDT) Narrative 03/20/2021 8:57 EDT This is a non-reportable exam. us Catalino Garrett MD IMG OTHER IMAGING ORDERABLES Fin al Result documented in this encounter Visit Diagnoses Diagnosis Knee pain Pain in joint, lower leg documented in this encounter Care Teams Construction Helper Relationship Specialty Start Date End Date Shonda Sánchez NP [address] [place] [address] PCP - General 03/14/21 01/31/22 Juma Herrera MD [address] [facility] [place] [place] [address] 12/08/18 documented as of this encounter
--- OUTSIDE RECORDS SUMMARY | 2024-09-17 09:11 | XMS_ITS | Encounter Summary ---
Author Organization [facility] Address [address] [place] [address] Care Team Providers Care Manufacturing Executive Name Role Phone Juma Herrera MD Unavailable Shonda Sánchez SUPERVISOR ALUMINUM BOAT ASSEMBLY Primary Care Provider [phone] Reason for Visit * Reason Onset Date Comments Prior Auth, Medication 06/08/2021 Encounter Details Date Type Department Care Team (Late st Contact Info) Description 06/08/[address] [facility] Neurology - S [place] [address] [place] [phone] Kj Gloria MD PhD [address] [place] [address] 2 [place] [address] Prior Auth, Medication Social History [...] [facility] Bariatric Surgery - [place] [address] [place] [address] Allen Thompson PA-C [address] [place] [address], [facility] 5 [place] [phone] 10/26/2024 10:45 EST Telemedicine [facility] Neurology - [address] [address] Sulema Nicole, SUPERVISOR ALUMINUM BOAT ASSEMBLY 1 [facility], Level 2 [place] [phone] documented as of this encounter Visit Diagnoses Not on filedocumented in this encounter Care Teams Manufacturing Executive Relationship Specialty Start Date End Date Shonda Sánchez NP [address] [place] [address] [address] [place] [address] PCP - General 03/14/21 01/31/22 Juma Herrera MD [address] [facility] [place] [address] 12/08/18 documented as of this encounter
--- OUTSIDE RECORDS SUMMARY | 2024-09-17 09:11 | XMS_ITS | Encounter Summary ---
Author Organization [facility] Address [address] [place] [address] Care Team Providers Care Information Scientist Name Role Phone Juma Herrera MD Unavailable Shonda Sánchez NP Primary Care Provider [phone] Reason for Referral * Medication Prior Authorization (See Order Priority) - Authorized Specialty Diagnoses / Procedures Referred By Wili mireles Referred To Contact Pharmacy Diagnoses Chronic migraine without aura without status migrainosus, not intractable Kj Gloria MD PhD Phone: tel: fax: [facility] Ambulatory Pharmacy - Main [address] [address] Phone: tel: fax: Referral ID Status Reason Start Date Expiration Date Visits Requested Visits Authorized [id number] Authorized Medication Prior Authorization 1 1 1 Question Answer Medication to be Prior Authorized: Aimovig reauth Comments The purpose of this request is to inform precertification staff that the requested service needs to be reviewed for prior-authorization. Reason for Visit * Reason Onset Date Comments Prior Auth, Medication 06/05/2021 Aimovig 7 0mg/mL Pen (Q 28 days) Encounter Details Date Type Department Care Team ([facility] Contact Info) Description 06/05/2021 Telephone [facility] [place] [address] Kj Gloria MD PhD 1 [facility], Level 2 [place] [address] Prior Auth, Medication (Aimovig 70mg/mL Pen (Q [...] [facility] Bariatric Surgery - [place] [address] [place] [address] Allen Thompson PA-C 111 [facility], [facility], Level 5 [place] [phone] 10/26/2024 10:45 EST Telemedicine [facility] Neurology - [address] [address] Sulema Nicole NP [address] [place] [address] Level [address] [place] [phone] Scheduled Referrals Name Type Priority Associated Diagnoses [...] as of this encounter Care Teams Information Scientist Relationship Specialty Start Date End Date Shonda Sánchez NP [address] [place] [address] [address] [place] [address] PCP - General 03/14/21 01/31/22 Juma Herrera MD [address] [facility] [place] [address] 12/08/18 documented as of this encounter
--- OUTSIDE RECORDS SUMMARY | 2024-09-17 09:11 | XMS_ITS | Encounter Summary ---
Author Organization [facility] Address [address] [place] [address] Care Team Providers Care Explosives Truck Driver Name Role Phone Juma Herrera MD Unavailable Shonda Sánchez NP Primary Care Provider [phone] Reason for Visit * Reason Comments Knee Pain * Office Procedure (Routine) - Specialty Report Received Specialty Diagnoses / Procedures Referred By Wili mireles Referred To Contact Pain Medicine Diagnoses Pain in right knee Unilateral post-traumatic osteoarthritis, right knee R knee injection with monovisc (hyaluronic acid) Procedures PA ARTHROCENTESIS ASPIR&/INJ MAJOR JT/BURSA W/O US PA MONOVISC INJ PER DOSE PROCEDURE SHORT [facility] Interventional Pain [address] [place] [address] Phone: tel: fax: Catalino Garrett MD [address] [facility] [address] [place] [address] Phone: tel: fax: Referral ID Status Reason Start Date Expiration Date V isits Requested Visits Authorized [id number] Specialty Report Received 1 1 Encounter Details Date Type Department Care Team (Latest Contact Info) Description 03/20/2021 8:00 EDT Procedure visit [facility] Interventional Pain [address] [place] [address] Catalino Garrett MD [address] [facility] [address] [place] [address] Chronic pain of right knee (Primary Dx); DDD (degenerative disc disease), cervical; Sacroiliitis ([facility]) Social History Tobacco Use Types Packs/Day Years [...] 03/20/2021 8:00 EDT [facility] [address] [phone] Patient Instructions You have had your Right [...] Kizzy Collazo MA - 03/20/2021 0800 EDT [facility] Rooming Note Does patient have a Home Care Manager? yes Is patient NPO? (Solids since [...] Rooney : 1975 Date of Service: 03/20/2021 Liquor Department Manager: Gerry MEHTA Procedure: Therapeutic intra-articular R knee [...] the entire procedural team was completed. 0848 documented in this encounter Plan of Treatment Upcoming Encounters Date Type Department Care Team (Late st Contact Info) Description 09/18/2024 11:00 EST Office Visit [facility] Bariatric Surgery - [place] [address] [place] [address] Allen Thompson, PA-C 111 [facility], [facility], Level 5 [place] [phone] 10/26/2024 10:45 EST Telemedicine [facility] Neurology - S [place] 1 [place] [address] Sulema Nicole NP 1 [facility], Level 2 [place] [address] documented as of this encounter [...] may reflect changes made after this encounter. multivitamins (THERAGRAN) Take 5 mL by mouth daily. added in this encounter Care Teams Explosives Truck Driver Relationship Specialty Start Date End Date Shonda Sánchez NP [address] [place] [address] [address] [place] [phone] PCP - General 03/14/21 01/31/22 Juma Herrera MD [address] [place] [phone] 12/08/18 documented as of this encounter
--- OUTSIDE RECORDS SUMMARY | 2024-09-17 09:11 | XMS_ITS | Encounter Summary ---
Author Organization Health system Address [address] [place] [address] Care Team Providers Care Direct Service Worker Name Role Phone Juma Herrera MD Unavailable Juma Herrera MD Primary Care Provider [phone] Shonda Sánchez COMMERCIAL PILOT Primary Care Provider [phone] Encounter Details Date Type Department Care Team (Late st Contact Info) Description 03/10/2021 Specialty Pharmacy [facility] - [facility] [address] [place], [place] [address] Yee Rodriguez, [facility] [address] [facility] 23 [place] [address] Social History Tobacco Use Types [...] in this encounter Progress Notes * Charlotte Bhatti, [facility] - 03/10/2021 1302 EDT [facility] Medication Therapy Initiation Note [...] regarding Aimovig 70mg and injection resources on scientific publications editor website provided to patient. She declined injection [...] Description 09/18/2024 11:00 EST Office Visit [facility] Bariatric Surgery [place] [address] [place], [place] [address] Allen Thompson PA-C 111 [facility] 5 [place] [address] 10/26/2024 10:45 EST Telemedicine [facility] Neurology - [address] [phone] Sulema Nicole NP 1 [facility] 2 [place] [address] documented as of this encounter Visit Diagnoses Not on filedocumented in this encounter Care Teams Direct Service Worker Relationship Specialty Start Date End Date Juma Herrera MD [address] [place] [address] PCP - General 01/07/19 03/13/21 Shonda Sánchez NP [address] [place] [address] [address] [place] [address] PCP - General 03/14/21 01/31/22 Juma Herrera MD [address] [facility] [place] [address] 12/08/18 documented as of this encounter
--- OUTSIDE RECORDS SUMMARY | 2024-09-17 09:11 | XMS_ITS | Encounter Summary ---
Author Organization [facility] Address [address] [place] [address] Care Team Providers Care Lockmaker Name Role Phone Juma Herrera MD Unavailable Shonda Sánchez INDUSTRIAL RELATIONS SPECIALIST Primary Care Provider [phone] Reason for Visit * Reason Onset Date Comments Appointment Related 04/28/2021 Encounter Details Date Type Department Care Team (Late st Contact Info) Description 04/28/2021 Telephone [facility] Interventional Pain 62 [facility] [place] [address] Catalino Garrett MD 62 [facility] [address] [place] [address] Appointment Related Social History Tobacco [...] of Assessment Author No 09/05/2015 12:00 Khoa Pñealoza * Are you blind or do you [...] January/March she went to the ED in [facility] for a swollen collarbone. She stated [...] Description 09/18/2024 11:00 EST Office Visit [facility] Bariatric Surgery - [place] [address] [place] [address] Allen Thompson PA-C 111 [facility], Level 5 [place] [address] 10/26/2024 10:45 EST Telemedicine [facility] Neurology - [address] [address] Sulema Nicole NP 1 [facility] 2 [place] [address] documented as of this encounter Visit Diagnoses Not on filedocumented in this encounter Care Teams Lockmaker Relationship Specialty Start Date End Date Shonda Sánchez NP [address] [place] [phone] PCP - General 03/14/21 01/31/22 Juma Herrera MD [address] [facility] [place] [address] 12/08/18 documented as of this encounter
--- OUTSIDE RECORDS SUMMARY | 2024-09-17 09:11 | XMS_ITS | Encounter Summary ---
Author Organization [facility] Address [address] [place] [address] Care Team Providers Care Melt Room Operator Name Role Phone Juma Herrera MD Unavailable Shonda Sánchez NP Primary Care Provider [phone] Encounter Details Date Type Department Care Team (Late st Contact Info) Description 07/05/2021 Specialty Pharmacy [facility] - [facility] [address] [place], [place] [phone] Yee Rodriguez, [facility] [address] [facility] 23 [place] [address] Social History Tobacco Use Types [...] Info) Description 09/18/2024 11:00 EST Office Visit [facility] Bariatric Surgery [facility] [address] [place], [place] [address] Allen Thompson, PALizettC 111 [facility], [facility] 5 [place] [address] 10/26/2024 10:45 EST Telemedicine [facility] Neurology - [address] [place] 1 [place], [place] [phone] Sulema Nicole NP 1 [facility] Level 2 [place] [address] documented as of this encounter Visit Diagnoses Not on filedocumented in this encounter Care Teams Melt Room Operator Relationship Specialty Start Date End Date Shonda Sánchez NP [address] [place], [place] [address] [place] [address] PCP - General 03/14/21 01/31/22 Juma Herrera MD [address] [place] [address] 12/08/18 documented as of this encounter
--- OUTSIDE RECORDS SUMMARY | 2024-09-17 09:11 | XMS_ITS | Encounter Summary ---
Author Organization [facility] Address [address] [place] [address] Care Team Providers Care Insole Department Worker Name Role Phone Juma Herrera MD Unavailable Shonda Sánchez CUTTING TORCH OPERATOR Primary Care Provider [phone] Reason for Visit * Reason Onset Date Comments Appointment Related 03/15/2021 Encounter Details Date Type Department Care Team (Late st Contact Info) Description 03/15/[address] [facility] Interventional Pain 62 [place] [address] Catalino Garrett MD 62 [facility] [address] [place] [address] Appointment Related Social History Tobacco [...] encounter Miscellaneous Notes * Telephone Encounter - Counter, ALEXANDER Pepper - 03/16/2021 1142 EDT Injection History: 01/12/2021: [...] Visit [facility] Bariatric Surgery [facility] [address] [place], [place] [address] Allen Thompson, PA-C 111 [facility], Level 5 [place] [phone] 10/26/2024 10:45 EST Telemedicine [facility] Neurology - [address] [phone] Sulema Nicole NP [address] [place] [address] Level 2 [place] [address] documented as of this encounter Visit Diagnoses Not on filedocumented in this encounter Care Teams Insole Department Worker Relationship Specialty Start Date End Date Shonda Sánchez NP [address] [place] [address] [address] [place] [phone] PCP - General 03/14/21 01/31/22 Juma Herrera MD [address] [facility] [place] [address] 12/08/18 documented as of this encounter
--- OUTSIDE RECORDS SUMMARY | 2024-09-17 09:11 | XMS_ITS | Encounter Summary ---
Author Organization [facility] Address [address] [place] [address] Care Team Providers Care Taxation Accountant Name Role Phone Juma Herrera MD Unavailable Juma Herrera MD Primary Care Provider [phone] Encounter Details Date Type Department Care Team (Latest Contact Info) Description 01/12/2021 7:40 EDT - 01/12/2021 23:59 EDT Hospital Encounter [facility] Xray [address] [place], [place] [phone] Discharge Disposition: Home or Self Care Social [...] daily Hold for 2 weeks 09/07/2015 2 rizatriptan (MAXALT) 10 mg tablet Take 10 mg by mouth once as needed. May repeat in 2 hours if needed 2 SUMAtriptan succinate 3 mg/0.5 mL pen injector Inject into the skin three times a week. 1 documented as of this encounter Discharge Disposition Disposition Code Departure Means Destination Home or Self Care documented in this encounter Plan of Treatment Upcoming Encounters Date Type Department Care Team (Late st Contact Info) Description 09/18/2024 11:00 EST Office Visit [facility] Bariatric Surgery - [place] [address] [place] [address] Allen Thompson, ZHOUC 111 [facility] 5 [place] [phone] 10/26/2024 10:45 EST Telemedicine [facility] Neurology - [address] [address] Sulema Nicole NP [address] [place] [address] 2 [place] [address] documented as of this encounter Procedures Procedure Name Priority Date/Time Associated Diagnosis Comments PAIN CLINIC [place] SACROILIAC JOINT INJECTION Routine 01/12/2021 9:25 EDT documented in this encounter Results * PAIN CLINIC FL SACROILIAC JOINT INJECTION (01/12/2021 9:25 EDT) Narrative 01/12/2021 9:25 EDT This is a non-reportable exam. us Catalino Garrett MD IMG OTHER IMAGING ORDERABLES Fin al Result documented in this encounter Visit Diagnoses Not on filedocumented in this encounter Care Teams Taxation Accountant Relationship Specialty Start Date End Date Juma Herrera MD [address] [place] [address] PCP - General 01/07/19 03/13/21 Juma Herrera MD [address] [place] [phone] 12/08/18 documented as of this encounter
--- OUTSIDE RECORDS SUMMARY | 2024-09-17 09:11 | XMS_ITS | Encounter Summary ---
Author Organization [facility] Address [address] [place] [address] Care Team Providers Care Automatic Drill Operator Name Role Phone Juma Herrera MD Unavailable Juma Herrera MD Primary Care Provider [phone] Reason for Visit * Reason Onset Date Comments Appointment Related 01/05/2021 Encounter Details Date Type Department Care Team (Late st Contact Info) Description 01/05/2021 Telephone [facility] Interventional Pain [address] [place] [address] Millie Nunez, ALEXANDER Appointment Related [...] appt on 01/12/21: -Patient must have a local delivery driver -Patient needs to arrive 45 minutes [...] scheduled. Patient is provided clinic phone number [phone] for any additional questions. documented in this encounter Plan of Treatment Upcoming Encounters Date Type Department Care Team (Late st Contact Info) Description 09/18/2024 11:00 EST Office Visit [facility] Bariatric Surgery [place] [address] [place] [address] Allen Thompson PA-C 111 [facility], Level 5 [place] [phone] 10/26/2024 10:45 EST Telemedicine [facility] Neurology - [address] [place] 1 [place], [place] [phone] Sulema Nicole, LEVELMAN 1 [facility] Level 2 [place] [address] documented as of this encounter Visit Diagnoses Not on filedocumented in this encounter Care Teams Automatic Drill Operator Relationship Specialty Start Date End Date Juma Herrera MD [address] [place] [address] PCP - General 01/07/19 03/13/21 Juma Herrera MD [address] [place] [address] 12/08/18 documented as of this encounter
--- OUTSIDE RECORDS SUMMARY | 2024-09-17 09:11 | XMS_ITS | Encounter Summary ---
Author Organization [facility] Address [address] [place] [address] Care Team Providers Care Clinical Analyst Name Role Phone Juma Herrera MD Unavailable Juma Herrera MD Primary Care Provider [phone] Encounter Details Date Type Department Care Team [...] EST Office Visit [facility] Bariatric Surgery [address] [address] Allen Thompson, PA-C [address] [place] [address] 5 [place] [phone] 10/26/2024 10:45 EST Telemedicine [facility] Neurology - [address] [phone] Sulema Nicole, GIULIA [address] [place] [address] 2 [place] [address] documented as of this encounter Visit Diagnoses Not on filedocumented in this encounter Care Teams Clinical Analyst Relationship Specialty Start Date End Date Juma Herrera MD [address] [place] [phone] PCP - General 01/07/19 03/13/21 Juma Herrera MD [address] [place] [phone] 12/08/18 documented as of this encounter
--- OUTSIDE RECORDS SUMMARY | 2024-09-17 09:11 | XMS_ITS | Encounter Summary ---
Author Organization [facility] Address [address] [place] [address] Care Team Providers Care Open Die Inspector Name Role Phone Juma Herrera MD Unavailable Juma Herrera MD Primary Care Provider Encounter [...] Visit [facility] Bariatric Surgery [address] [address] Allen Thompson, PA-C [address] [place] [address] 5 [place] [phone] 10/26/2024 10:45 EST Telemedicine [facility] Neurology - [address] [phone] Sulema Nicole, GIULIA [address] [place] [address] 2 [place] [address] documented as of this encounter Visit Diagnoses Not on filedocumented in this encounter Care Teams Open Die Inspector Relationship Specialty Start Date End Date Juma Herrera MD [address] [place] [phone] PCP - General 01/07/19 03/13/21 Juma Herrera MD [address] [place] [phone] 12/08/18 documented as of this encounter
--- OUTSIDE RECORDS SUMMARY | 2024-09-17 09:11 | XMS_ITS | Encounter Summary ---
Author Organization [facility] Address [address] [place] [address] Care Team Providers Care Fermenter Name Role Phone Juma Herrera MD Unavailable Shonda Sánchez CHIMNEY BUILDER BRICK Primary Care Provider [phone] Reason for Visit * Reason Onset Date Comments Appointment Related 07/06/2021 Encounter Details Date Type Department Care Team ([facility] st Contact Info) Description 07/06/2021 Telephone [facility] Neurology - [place] [address] [place] [phone] Kj Gloria MD PhD 1 [facility] 2 [place] [phone] Appointment Related Social History Tobacco Use Types [...] 11:30am TVD FUR 6M - L/S 06/27/21 [email or web address] [phone] ZOOM scheduling needed documented in this encounter Plan of Treatment Upcoming Encounters Date Type Department Care Team (Late st Contact Info) Description 09/18/2024 11:00 EST Office Visit [facility] Bariatric Surgery - [place] [address] [place] [address] Allen Thompson PA-C [address] [place] [address], [facility], Level 5 [place] [address] 10/26/2024 10:45 EST Telemedicine [facility] Neurology - [address] [place] 1 [place], [place] [address] Sulema Nicole NP 1 [facility], Level 2 [place] [address] documented as of this encounter Visit Diagnoses Not on filedocumented in this encounter Additional Health Concerns Infection Onset Date Last Indicated Resolved Time COVID-19 08/15/2021 08/15/2021 09/04/2021 22:1 5 EST documented as of this encounter Care Teams Fermenter Relationship Specialty Start Date End Date Shonda Sánchez NP [address] [place] [phone] PCP - General 03/14/21 01/31/22 Juma Herrera MD [address] [facility] [address] 12/08/18 documented as of this encounter
--- OUTSIDE RECORDS SUMMARY | 2024-09-17 09:12 | XMS_ITS | Encounter Summary ---
Author Organization [facility] Address [address] [place] [address] Care Team Providers Care Crusher And Binder Operator Name Role Phone Juma Herrera MD Unavailable Juma Herrera MD Primary Care Provider [phone] Encounter Details Date Type Department Care Team (Latest Contact Info) Description 11/17/2020 7:36 EDT - 11/17/2020 23:59 EDT Hospital Encounter [facility] Xray [address] [place], [place] [phone] Discharge Disposition: Home or Self Care Social [...] this encounter Medications at Time of Discharge calcium carbonate/vitamin D3 (VITAMIN D-3 ORAL) Take [...] Office Visit [facility] Bariatric Surgery [facility] [address] [place] [address] Allen Thompson PA-C 111 [facility] 5 [place] [phone] 10/26/2024 10:45 EST Telemedicine [facility] Neurology - [address] 813[address] Sulema Nicole NP [address] [place] [address], Level [address] [place] [address] documented as of this encounter Procedures Procedure Name Priority Date/Time Associated Diagnosis Comments PAIN CLINIC FL CERVICAL INJECTION Routine 11/17/2020 9:37 EDT documented in this encounter Results * PAIN CLINIC FL CERVICAL INJECTION (11/17/2020 9:37 EDT) Narrative 11/17/2020 9:38 EDT This is a non-reportable exam. us Catalino Garrett MD IMG OTHER IMAGING ORDERABLES Fin al Result documented in this encounter Visit Diagnoses Not on filedocumented in this encounter Care Teams Crusher And Binder Operator Relationship Specialty Start Date End Date Juma Herrera MD [address] [place] [phone] PCP - General 01/07/19 03/13/21 Juma Herrera MD [address] [place] [phone] 12/08/18 documented as of this encounter
--- OUTSIDE RECORDS SUMMARY | 2024-09-17 09:12 | XMS_ITS | Encounter Summary ---
Author Organization [facility] Address [address] [place] [address] Care Team Providers Care Site Engineer Name Role Phone Juma Herrera MD Unavailable Juma Herrera MD Primary Care Provider [phone] Shonda Sánchez ANALYST GEOCHEMICAL PROSPECTING Primary Care Provider [phone] Reason for Visit * Reason Onset Date Comments Appointment Related 06/13/2020 Encounter Details Date Type Department Care Team (Late st Contact Info) Description 06/13/2020 Telephone [facility] Interventional Pain 62 [place] [address] Catalino Garrett MD 62 [facility] [address] [place] [address] Appointment Related Social History Tobacco [...] Visit [facility] Bariatric Surgery - [place] [address] [place] [address] Allen Thompson PA-C [address] [place] [address], [facility], Level 5 [place] [address] 10/26/2024 10:45 EST Telemedicine [facility] Neurology - S [place] 1 [place], [place] [address] Sulema Nicole, ANALYST GEOCHEMICAL PROSPECTING 1 [facility], Level 2 [place] [address] documented as of this encounter Visit Diagnoses Not on filedocumented in this encounter Care Teams Site Engineer Relationship Specialty Start Date End Date Juma Herrera MD [address] [place] [phone] PCP - General 01/07/19 03/13/21 Shonda Sánchez NP [address] [place] [address] [address] [place] [address] PCP - General 03/14/21 01/31/22 Juma Herrera MD [address] [place] [phone] 12/08/18 documented as of this encounter
--- OUTSIDE RECORDS SUMMARY | 2024-09-17 09:12 | XMS_ITS | Encounter Summary ---
Author Organization [facility] Address [address] [place] [address] Care Team Providers Care Wheel Filler Name Role Phone Juma Herrera MD Unavailable Juma Herrera MD Primary Care Provider [phone] Shonda Sánchez COMPOSITION WEATHERBOARD APPLIER Primary Care Provider [phone] Reason for Visit * Reason Onset Date Comments New Patient Visit 11/14/2020 Zoom Encounter Details Date Type Department Care Team (Late st Contact Info) Description 11/14/2020 Telephone [facility] Neurology - S [address] [phone] Kj Gloria MD PhD [address] [place] [address] 2 [place] [phone] New Patient Visit (Zoom) Social History Tobacco [...] Author Yes 09/15/2018 7:52 NATALY Nina Hernandez an documented as of this encounter Mental Status * Because of a physical, mental, or emotional condition, does this person have serious difficulty concentrating, remembering, or making decisions? Answer Entry Date Author Yes 09/15/2018 7:52 Nina Peñaloza an documented in this encounter Miscellaneous Notes * Telephone Encounter - Candida Hankins - 11/14/2020 1046 EDT Spoke to yadira Weber NPV via Televideo with Dr. Gloria on 02/21/21 at 9 AM. Email - [email or web address] [phone] Meeting ID: [id number] Password: [id number] documented in this encounter Plan of Treatment Upcoming Encounters Date Type Department Care Team (Late st Contact Info) Description 09/18/2024 11:00 EST Office Visit [facility] Bariatric Surgery - [place] [address] [place] [address] Allen Thompson PA-C [address] [place] [address] [address] [place] [address] 10/26/2024 10:45 EST Telemedicine [facility] Neurology - [address] [place] 1 [place], [place] [address] Sulema Nicole COMPOSITION WEATHERBOARD APPLIER 1 [facility], Level 2 [place] [address] documented as of this encounter Visit Diagnoses Not on filedocumented in this encounter Care Teams Wheel Filler Relationship Specialty Start Date End Date Juma Herrera MD [address] [place] [phone] PCP - General 01/07/19 03/13/21 Shonda Sánchez NP [address] [place] [address] [address] [place] [phone] PCP - General 03/14/21 01/31/22 Juma Herrera MD [address] [place] [phone] 12/08/18 documented as of this encounter
--- OUTSIDE RECORDS SUMMARY | 2024-09-17 09:12 | XMS_ITS | Encounter Summary ---
Author Organization [facility] Address [address] [place] [address] Care Team Providers Care Vegetable Preparer Name Role Phone Juma Herrera MD Primary Care Provider [phone] Reason for Visit * Reason Comments Obesity Post Op sleeve 3 yea r (09/05/2015) Encounter Details Date Type Department Care Team (Late st Contact Info) Description 09/26/2018 10:00 EST Office Visit [facility] Bariatric Surgery [facility] [address] [place] [address] Allen Thompson, PA-C [address] [place] [address], [facility], Level 5 [place] [address] Morbid obesity (HCC-CMS) (Primary Dx); S/P laparoscopic sleeve gastrectomy; BMI 30.0-30.9,adult Discharge Disposition: Auto Discharge Social History Tobacco Use Types Packs/Day Years Used Date Smoking Tobacco: Former Cigarettes Q uit: 01/13/2009 Smokeless Tobacco: Never Alcohol Use Standard Drinks/Week Comments Yes 0 (1 standard drink = 0.6 oz pur e alcohol) very rarely Comments No Sex and Gender Information Value [...] of Assessment Author No 09/05/2015 12:00 NATALY Hernandez Khoa bruce * Do you have serious difficulty [...] Answer Entry Date Author Yes 09/15/2018 7:52 Khoa Peñalozatessa mike documented in this encounter Discharge Diagnoses Diagnosis E66.01 Morbid (severe) obesity due to excess calories-E66.01[ICD-10-CM] Z98.84 Bariatric surgery status-Z98.84[ICD-10-CM] Z68.30 Body mass index (BMI) 30.0-30.9, adult-Z68.30[ICD-10-CM] documented in this encounter Discharge Disposition Disposition Code Departure Means Destination Auto Discharge documented in this encounter Progress Notes * Aneta Heredia, THOMAS - 09/26/2018 1000 EST Nutrition Post Op [...] Morbid obesity with BMI of 45.0-49.9, adult ([facility]) SUBJECTIVE: Emesis: No complaints of emesis Nausea: [...] followed by PCP Seen and discussed with Display Manager at this visit. MARGARITA Gomez 09/30/2018 11:12 documented in this encounter Plan of Treatment Upcoming Encounters Date Type Department Care Team (Late st Contact Info) Description 09/18/2024 11:00 EST Office Visit [facility] Bariatric Surgery - [place] [address] [place], [place] [address] Allen Thompson PA-C 111 [facility] 5 [place] [phone] 10/26/2024 10:45 EST Telemedicine [facility] Neurology - [address] [place] 1 [place], [place] [phone] Sulema Nicoel NP 1 [facility], Level 2 [place] [address] documented as of this encounter Visit Diagnoses Diagnosis Morbid obesity ([facility])- Primary Morbid obesity S/P laparoscopic sleeve gastrectomy Bariatric surgery status BMI 30.0-30.9,adult Body Mass Index 30.0-30.9, adult documented in this encounter Historical Medications * This list may reflect changes made after this encounter. cortisone acetate (CORTISONE IM) Inject 1 Dose into the muscle every 3 months. added in this encounter Care Teams Vegetable Preparer Relationship Specialty Start Date End Date Juma Herrera MD [address] [facility] [place] [phone] PCP - General 09/25/12 12/07/18 documented as of this encounter
--- OUTSIDE RECORDS SUMMARY | 2024-09-17 09:12 | XMS_ITS | Encounter Summary ---
Author Organization [facility] Address [address] [place] [address] Care Team Providers Care Driver Supervisor Name Role Phone Juma Herrera MD Unavailable Juma Herrera MD Primary Care Provider [phone] Reason for Visit * Reason Comments Neck Pain neck pain radiating down right arm Encounter Details Date Type Department Care Team (Latest Contact Info) Description 01/28/2019 7:[address] [facility] Interventional Pain [address] [place] [address] [place] [address] [place] [address] DDD (degenerative disc disease), cervical [...] EDT documented in this encounter Functional Status * Are you deaf or do you have serious difficulty hearing? Answer Date of Assessment Author No 09/05/2015 12:00 NATALY Hernandez Khoa bruce * Are you blind or do you have serious difficulty seeing, even when wearing glasses? Answer Date of Assessment Author No 09/05/2015 12:00 NATALY Hernandez Khoa bruce * Do you have serious difficulty walking or climbing stairs? (5 years old or older) Answer Date of Assessment Author No 09/05/2015 12:00 NATALY Hernandez Khoa bruce * Do you have difficulty dressing or bathing? (5 years old or older) Answer Date of Assessment Author No 09/05/2015 12:00 Khoa Peñaloza bruce * Because of a physical, mental, or emotional condition, does this person have difficulty doing errands alone such as visiting a doctor's office or shopping? Answer Date of Assessment Author Yes 09/15/2018 7:52 NATALY Nina Hernandez mike documented as of this encounter Mental Status * Because of a physical, mental, or emotional condition, does this person have serious difficulty concentrating, remembering, or making decisions? Answer Entry Date Author Yes 09/15/2018 7:52 NATALY Mary Khoatessa mckeon documented in this encounter Discharge Diagnoses Diagnosis M50.30 Other cervical disc degeneration, unspecified cervical region-M50.30[ICD-10-CM] Z98.1 Arthrodesis status-Z98.1[ICD-10-CM] documented in this encounter Patient Instructions * Patient Instructions* Shantelle Gautam RN - 01/28/2019 7:45 EDT [facility] [address] [address] Patient Instructions You have had [...] Notes * Shantelle Gautam RN - 01/28/2019 5327 EDT Contrast Dye Used: 2mls Wasted: 8mls [facility] Rooming Note Does patient have a Fertilizer Mixer? yes Is patient NPO? (Solids since midnight [...] type of implanted device? no Other: * Kavon Butler - 01/28/2019 0745 EDT Procedure: C6-7 cervical epidural under fluoroscopy Date Performed: 01/28/2019 Plant Maintenance Mechanic: Kavon Butler M.D. Stonecutter: Rosalino Gottlieb MD See history and physical [...] Office Visit [facility] Bariatric Surgery - [place] [address] [place] [address] Allen Thompson PA-C 111 [facility], [facility], Level 5 [place] [address] 10/26/2024 10:45 EST Telemedicine [facility] Neurology - [address] [place] [address] [place] [address] Sulema Nicole, EXTRUDING PRESS OPERATOR 1 [facility], Level [address] [place] [address] documented as of this encounter [...] documented as of this encounter Care Teams Driver Supervisor Relationship Specialty Start Date End Date Juma Herrera MD [address] [place] [address] PCP - General 01/07/19 03/13/21 Juam Herrera MD [address] [id number] 12/08/18 documented as of this encounter
--- OUTSIDE RECORDS SUMMARY | 2024-09-17 09:12 | XMS_ITS | Encounter Summary ---
Author Organization [facility] Address [address] [place] [address] Care Team Providers Care Music Instructor Name Role Phone Juma Herrera MD Unavailable Juma Herrera MD Primary Care Provider [phone] Reason for Visit * Reason Comments Follow-up * Consult (Routine) - Specialty Report Received Specialty Diagnoses / Procedures Referred By Wili mireles Referred To Contact Orthopedic Surgery Diagnoses Chronic bilateral low back pain without sciatica Cervicalgia Starr Hart, PA-C [facility] [place] [address] Phone: tel: fax: Referral ID Status Reason Start Date Expiration Date Visits Requested Visits Authorized [id number] Specialty Report Received Specialty Services Required 03/03/2019 1 1 Encounter Details Date Type Department Care Team (Late st Contact Info) Description 04/03/2019 8:45 EDT Office Visit [facility] [place] [address] Kj Child MD [address] [place] [address] [place] [address] Chronic midline low back pain [...] 7:52 Nina Peñaloza documented in this encounter Discharge Diagnoses Diagnosis Z98.1 Arthrodesis [...] Child MD - 04/03/2019 0000 EDT [facility] SPINE PROGRAM CONSULTATION - 04/03/2019 [...] 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 She smokes half pack a day. [...] - Kj Child MD an Dictation ID: [id number] cc: Juma Herrera MD, [place] [address] documented in this encounter Plan of Treatment Upcoming Encounters Date Type Department Care Team (Late st Contact Info) Description 09/18/2024 11:00 EST Office Visit [facility] - [place] [address] [place] [address] Allen Thompson, PA-C 111 [facility], [facility], Level [address] [place] [phone] 10/26/2024 10:45 EST Telemedicine [facility] - [address] [phone] Sulema Nicole, ACIDIZER 1 [facility] Level 2 [place] [phone] documented as of this encounter Visit Diagnoses Diagnosis Chronic midline low back pain without sciatica- Primary documented in this encounter Care Teams Music Instructor Relationship Specialty Start Date End Date Juma Herrera MD [address] [place] [address] PCP - General 01/07/19 03/13/21 Juma Herrera MD [address] [phone] 12/08/18 documented as of this encounter
--- OUTSIDE RECORDS SUMMARY | 2024-09-17 09:12 | XMS_ITS | Encounter Summary ---
Author Organization [facility] Address [address] [place] [address] Care Team Providers Care Winemaker Name Role Phone Juma Herrera MD Unavailable Juma Herrera MD Primary Care Provider [phone] Reason for Visit * Reason Comments Back Pain lower Neck Pain Shoulder Pain right Leg Pain bilateral * Referral (3 - 10 Business Days) - Closed Specialty Diagnoses / Procedures [facility] Referred To Contact Pain Medicine Diagnoses Back pain, unspecified back location, unspecified back pain laterality, unspecified chronicity Kj Child MD Phone: tel: fax: [facility] Interventional Pain [address] [place] [address] Phone: tel: fax: Referral ID Status Reason Start Date Expiration Date V isits Requested Visits Authorized [id number] Closed Specialty Services Required 06/04/2019 1 1 Encounter Details Date Type Department Care Team (Latest Contact Info) Description 07/27/2019 9:30 EST Procedure visit [facility] Interventional Pain [address] [place] [address] Catalino Garrett MD [address] [place] [address] [address] [place] [address] Sacroiliitis (HCC-CMS) (Primary Dx) Social [...] 9:30 EST [facility] [address] [address] Patient Instructions You have had [...] Notes * Elo Manzo DO - 07/27/2019 8394 EST Patient Name: Tia Spain : 1975 Date of Service: 07/27/2019 Requesting physician: Kj Child Washing Machine Operator: Catalino Garrett MD Metal Bending Machine Operator: Elo Manzo DO Procedure: Diagnostic and Therapeutic [...] 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 Details of the current complaint are [...] bilateral, positive SUMIT test Assessment: 1. Sacroiliitis ([facility]) Plan: Ms. Tia Spain is a [...] Fellow * Jessica Stout MA - 07/27/2019 0959 EST [facility] Rooming Note Does patient have a Baking Assistant? yes Is patient NPO? (Solids since [...] 09/18/2024 11:00 EST Office Visit [facility] Bariatric Surgery [address] [address] Allen Thompson, PALizettC [address] [place] [address] 5 [place] [phone] 10/26/2024 10:45 EST Telemedicine [facility] Neurology - [address] [address] Sulema Nicole, GIULIA [address] [place] [address] 2 [place] [phone] documented as of this encounter Visit Diagnoses Diagnosis Sacroiliitis ([facility])- Primary Sacroiliitis, not elsewhere classified documented [...] mg documented in this encounter Care Teams Winemaker Relationship Specialty Start Date End Date Juma Herrera MD [address] [phone] PCP - General 01/07/19 03/13/21 Juma Herrera MD [address] [phone] 12/08/18 documented as of this encounter
--- OUTSIDE RECORDS SUMMARY | 2024-09-17 09:12 | XMS_ITS | Encounter Summary ---
Author Organization [facility] Address [address] [place] [address] Care Team Providers Care Washer Hand Name Role Phone Juma Herrera MD Unavailable Juma Herrera MD Primary Care Provider [phone] Reason for Referral * Referral (3 - 10 Business Days) - Closed Specialty Diagnoses / Procedures Referred By [facility] t Referred To Contact Pain Medicine Diagnoses Back pain, unspecified back location, unspecified back pain laterality, unspecified chronicity Kj Child MD Phone: tel: fax: [facility] Interventional Pain [address] [place] [address] Phone: tel: fax: Referral ID Status Reason Start Date Expiration Date V isits Requested Visits Authorized [id number] Closed Specialty Services Required 06/04/2019 1 1 [...] st Contact Info) Description 06/04/2019 Orders Only [facility] Spine Program - [address] [place], [place] [phone] Kj Child MD [address] [place] [address] [place] [address] Back pain, unspecified back location, [...] [facility] Bariatric Surgery [address] [place] [place] [address] Allen Thompson PA-C 111 [facility], Level [address] [place] [phone] 10/26/2024 10:45 EST Telemedicine [facility] Neurology - [address] [phone] Sulema Nicole, CARTOGRAPHY TEACHER 1 [facility], Level 2 [place] [phone] Scheduled Referrals Name Type Priority Associated Diagnoses Orde r Schedule AMB PAIN PROCEDURE Outpatient Referral Routine Back pain, unspecified back location, unspecified back pain laterality, unspecified chronicity Ordered: 06/04/2019 documented as of this encounter Visit Diagnoses Diagnosis Back pain, unspecified back location, unspecified back pain laterality, unspecified chronicity- Primary documented in this encounter Care Teams Washer Hand Relationship Specialty Start Date End Date Juma Herrera MD [address] [phone] PCP - General 01/07/19 03/13/21 Juma Herrera MD [address] [phone] 12/08/18 documented as of this encounter
--- OUTSIDE RECORDS SUMMARY | 2024-09-17 09:12 | XMS_ITS | Encounter Summary ---
Author Organization [facility] Address [address] [place] [address] Care Team Providers Care Wheel And Pinion Inspector Name Role Phone Juma Herrera MD Unavailable Juma Herrera MD Primary Care Provider [phone] Reason for Visit * Reason Onset Date Comments Appointment Related 10/30/2019 Encounter Details Date Type Department Care Team (Late st Contact Info) Description 10/30/2019 Telephone [facility] Interventional Pain [address] [place] [address] Catalino Garrett MD 62 [facility] [address] [place] [address] Appointment Related Social History Tobacco [...] Info) Description 09/18/2024 11:00 EST Office Visit [facility] Bariatric Surgery - [address] [place] [address] Allen Thompson PA-C [address] [place] [address], [address] [place] [phone] 10/26/2024 10:45 EST Telemedicine [facility] Neurology - [address] [place] 1 [place], [place] [address] Sulema Nicole, SOILS ENGINEER 1 [facility] Level 2 [place] [phone] documented as of this encounter Visit Diagnoses Not on filedocumented in this encounter Care Teams Wheel And Pinion Inspector Relationship Specialty Start Date End Date Juma Herrera MD [address] [phone] PCP - General 01/07/19 03/13/21 Juma Herrera MD [address] [place] [address] 12/08/18 documented as of this encounter
--- OUTSIDE RECORDS SUMMARY | 2024-09-17 09:12 | XMS_ITS | Encounter Summary ---
Author Organization [facility] Address [address] [place] [address] Care Team Providers Care Home Theater Experience Expert Name Role Phone Juma Herrera MD Unavailable Juma Herrera MD Primary Care Provider [phone] Reason for Referral * PT/OT/ST (Routine) - Specialty Report Received Specialty Diagnoses / Procedures [facility] Referred To Contact Diagnoses Low back pain, unspecified back pain laterality, unspecified chronicity, with sciatica presence unspecified Kj Child MD Phone: tel: fax: Referral ID Status Reason Start Date Expiration Date Visits Requested Visits Authorized [id number] Specialty Report Received Specialty Services Required 04/03/2019 1 1 Question Answer Reason for Request: back pain Scheduling Comments (optional ? describe specific scheduling needs if applicable): routine Comments Aquatic therapy 3x a week Reason for Visit * Reason Onset Date Comments Back Pain 04/03/2019 Encounter Details Date Type Department Care Team (Late st Contact Info) Description 04/03/2019 Orders Only [facility] Spine Program - [address] [place] [address] Kj Child MD [address] [place] [address] [place] [address] Low back pain, unspecified back [...] Info) Description 09/18/2024 11:00 EST Office Visit [facility] Bariatric Surgery - [place] [address] [place] [address] Allen Thompson PA-C [address] [place] [address], [address] [place] [address] 10/26/2024 10:45 EST Telemedicine [facility] Neurology - [address] [address] Sulema Nicole, GAS TECHNICIAN 1 [facility], Level [address] [place] [phone] Scheduled Referrals Name Type Priority Associated Diagnoses Orde r Schedule AMB CONS/FOLLOW UP PHYSICAL THERAPY Outpatient Referral Routine Low back pain, unspecified back pain laterality, unspecified chronicity, with sciatica presence unspecified Ordered: 04/03/2019 documented as of this encounter Visit Diagnoses Diagnosis Low back pain, unspecified back pain laterality, unspecified chronicity, with sciatica presence unspecified- Primary documented in this encounter Care Teams Home Theater Experience Expert Relationship Specialty Start Date End Date Juma Herrera MD [address] [phone] PCP - General 01/07/19 03/13/21 Juma Herrera MD [address] [phone] 12/08/18 documented as of this encounter
--- OUTSIDE RECORDS SUMMARY | 2024-09-17 09:12 | XMS_ITS | Encounter Summary ---
Author Organization [facility] Address [address] [place] [address] Care Team Providers Care Cigarette And Filter Chief Inspector Name Role Phone Juma Herrera MD Unavailable Juma Herrera MD Primary Care Provider [phone] Encounter Details Date Type Department Care Team (Latest Contact Info) Description 11/06/2019 10:00 EST - 11/07/2019 23:59 EST Hospital Encounter [facility] [address] [place], [place] [phone] Discharge Disposition: Home or Self Care Social [...] this encounter Medications at Time of Discharge cortisone acetate (CORTISONE IM) Inject 1 Dose [...] [facility] Bariatric Surgery - [place] [address] [place] [address] Allen Thompson PA-C 111 [facility] 5 [place] [phone] 10/26/2024 10:45 EST Telemedicine [facility] Neurology - [address] [phone] Sulema Nicole NP [address] [place] [address] 2 [place] [phone] documented as of this encounter Procedures Procedure Name Priority Date/Time Associated Diagnosis Comments PAIN CLINIC FL SACROILIAC JOINT INJECTION Routine 11/06/2019 10:25 EST documented in this encounter Results * PAIN CLINIC FL SACROILIAC JOINT INJECTION (11/06/2019 10:25 EST) Narrative 11/06/2019 10:25 EST This is a non-reportable exam. us Catalino Garrett MD IMG OTHER IMAGING ORDERABLES Fin al Result documented in this encounter Visit Diagnoses Not on filedocumented in this encounter Care Teams Cigarette And Filter Chief Inspector Relationship Specialty Start Date End Date Juma Herrera MD [address] [facility] [place] [phone] PCP - General 5/8/19 7/12/21 Juma Herrera MD [address] [facility] [place] [phone] 12/08/18 documented as of this encounter
--- OUTSIDE RECORDS SUMMARY | 2024-09-17 09:12 | XMS_ITS | Encounter Summary ---
Author Organization [facility] Address [address] [place] [address] Care Team Providers Care Homogenizer Operator Name Role Phone Juma Herrera MD Unavailable Juma Herrera MD Primary Care Provider [phone] Reason for Referral * Radiology Services (Routine) - New Request Specialty Diagnoses / Procedures [facility] Referred To Contact Diagnoses Neck pain Procedures CERVICAL SPINE 4 OR MORE VIEWS Kj Child MD Phone: tel: fax: Referral ID Status Reason Start Date Expiration Date V isits Requested Visits Authorized [id number] New Request 03/30/2019 1 1 Reason for Visit * Reason Onset Date Comments Neck Pain 03/20/2019 Encounter Details Date Type Department Care Team (Late st Contact Info) Description 03/20/[address] [facility] Interventional Pain [address] [place] [address] Kj Child MD 192 [facility] [place] [address] Neck pain (Primary Dx) Social [...] 09/05/2015 12:00 EST Khoa Hernandez bruce * Do you have serious difficulty [...] of Assessment Author Yes 09/15/2018 7:52 NATALY Hernandez Khoatessa mckeon documented as of this encounter Mental Status * Because of a physical, mental, or emotional condition, does this person have serious difficulty concentrating, remembering, or making decisions? Answer Entry Date Author Yes 09/15/2018 7:52 NATALY MaryNina farias documented in this encounter Plan of Treatment Upcoming Encounters Date Type Department Care Team (Late st Contact Info) Description 09/18/2024 11:00 EST Office Visit [facility] Bariatric Surgery [place] [address] [place] [address] Allen Thompson, ZHOUC [address] [place] [address] 5 [place] [phone] 10/26/2024 10:45 EST Telemedicine [facility] Neurology - [address] [address] Sulema Nicole NP [address] [place] [address] 2 [place] [phone] Scheduled Orders Name Type Priority Associated Diagnoses Orde r Schedule CERVICAL SPINE 4 OR MORE VIEWS Imaging Routine Neck pain Ordered: 03/30/2019 documented as of this encounter Visit Diagnoses Diagnosis Neck pain- Primary Cervicalgia documented in this encounter Care Teams Homogenizer Operator Relationship Specialty Start Date End Date Juma Herrera MD [address] [phone] PCP - General 01/07/19 03/13/21 Juma Herrera MD [address] [phone] 12/08/18 documented as of this encounter
--- OUTSIDE RECORDS SUMMARY | 2024-09-17 09:12 | XMS_ITS | Encounter Summary ---
Author Organization [facility] Address [address] [place] [address] Care Team Providers Care Agile Coach Name Role Phone Juma Herrera MD Unavailable Juma Herrera MD Primary Care Provider [phone] Encounter Details Date Type Department Care Team [...] 09/18/2024 11:00 EST Office Visit [facility] Bariatric Surgery [address] [address] Allen Thompson, PA-C [address] [place] [address] 5 [place] [phone] 10/26/2024 10:45 EST Telemedicine [facility] Neurology - [address] [phone] Sulema Nicole, GIULIA [address] [place] [address] 2 [place] [phone] documented as of this encounter Visit Diagnoses Not on filedocumented in this encounter Care Teams Agile Coach Relationship Specialty Start Date End Date Juma Herrera MD [address] [phone] PCP - General 01/07/19 03/13/21 Juma Herrera MD [address] [phone] 12/08/18 documented as of this encounter
--- OUTSIDE RECORDS SUMMARY | 2024-09-17 09:12 | XMS_ITS | Encounter Summary ---
Author Organization [facility] Address [address] [place] [address] Care Team Providers Care Clothes Presser Name Role Phone Juma Herrera MD Unavailable Juma Herrera MD Primary Care Provider [phone] Reason for Visit * Reason Onset Date Comments Appointment Related 10/25/2020 Encounter Details Date Type Department Care Team (Late st Contact Info) Description 10/25/2020 Telephone [facility] Interventional Pain [address] [place] [address] Catalino Garrett MD [address] [facility] [address] [place] [address] Appointment Related Social History Tobacco [...] Visit [facility] Bariatric Surgery - [place] [address] [place], [place] [address] Allen Thompson PA-C 111 [facility] 5 [place] [phone] 10/26/2024 10:45 EST Telemedicine [facility] Neurology - [address] [place] 1 [place], [place] [phone] Sulema Nicole NP 1 [facility] 2 [place] [phone] documented as of this encounter Visit Diagnoses Not on filedocumented in this encounter Care Teams Clothes Presser Relationship Specialty Start Date End Date Juma Herrera MD [address] [place] [address] PCP - General 01/07/19 03/13/21 Juma Herrera MD [address] [place] [address] 12/08/18 documented as of this encounter
--- OUTSIDE RECORDS SUMMARY | 2024-09-17 09:12 | XMS_ITS | Encounter Summary ---
Author Organization [facility] Address [address] [place] [address] Care Team Providers Care Radio Television Technical Director Name Role Phone Juma Herrera MD Unavailable Juma Herrera MD Primary Care Provider [phone] Reason for Visit * Reason Onset Date Comments Appointment Related 01/08/2019 Encounter Details Date Type Department Care Team (Late st Contact Info) Description 01/08/2019 Telephone [facility] Interventional Pain [address] [place] [address] [place] [address] [place] [address] Appointment Related Social History Tobacco [...] Visit [facility] Bariatric Surgery - [place] [address] [place] [address] Allen Thompson PA-C 111 [facility], Level [address] [place] [phone] 10/26/2024 10:45 EST Telemedicine [facility] Neurology - [address] [phone] Sulema Nicole, ON SITE PROPERTY MANAGER 1 [facility] Level 2 [place] [phone] documented as of this encounter Visit Diagnoses Not on filedocumented in this encounter Care Teams Radio Television Technical Director Relationship Specialty Start Date End Date Juma Herrera MD [address] [address] PCP - General 01/07/19 03/13/21 Juma Herrera MD [address] [place] [address] 12/08/18 documented as of this encounter
--- OUTSIDE RECORDS SUMMARY | 2024-09-17 09:12 | XMS_ITS | Encounter Summary ---
Author Organization [facility] Address [address] [place] [address] Care Team Providers Care Mint Machine Operator Name Role Phone Juma Herrera MD Unavailable Juma Herrera MD Primary Care Provider [phone] Reason for Visit * Reason Comments Neck Pain Shoulder Pain bilateral-9 Arm Pain right- sometimes * Office Procedure (Routine) - Specialty Report Received Specialty Diagnoses / Procedures Referred By Wili mireles Referred To Contact Pain Medicine Diagnoses Other cervical disc degeneration, unspecified cervical region Sacroiliitis, not elsewhere classified ([facility]) Cervical Epidural Steroid Injection / NO ABN NEEDED Procedures NH NJX DX/THER SBST INTRLMNR CRV/THRC W/IMG GDN PROCEDURE MEDIUM [facility] Interventional Pain [address] [facility] [place] [address] Phone: tel: fax: Catalino Garrett MD [address] [place] [address] Phone: tel: fax: Referral ID Status Reason Start Date Expiration Date V isits Requested Visits Authorized [id number] Specialty Report Received 10/21/2020 1 1 Encounter Details Date Type Department Care Team (Latest Contact Info) Description 11/17/2020 9:00 EDT Procedure visit [facility] Interventional Pain [address] [place] [address] Catalino Garrett MD [address] [place] [address] DDD (degenerative disc disease), cervical (Primary Dx); Sacroiliitis (HCC-CMS) Social History Tobacco [...] * Patient Instructions* Delaney Reyna RN - 11/17/2020 9:00 EDT [facility] [place] [phone] Patient Instructions You have had your cervical [...] Madai Juarez MA - 11/17/2020 0900 EDT [facility] Rooming Note Does patient have a Transporter Radiology? yes Is patient NPO? (Solids since midnight [...] cervical epidural under fluoroscopy Date Performed: 11/17/2020 Compensation And Benefits Administrator: Gerry MEHTA Parcel Post Weigher: None See history and physical from [facility] [...] DDD (degenerative disc disease), cervical 2. Sacroiliitis ([facility]) Recommendations: 1) has evidence of SI [...] reviewed with the patient, provider, nurse/MA, and retail merchandiser technician in the room prior to local [...] Description 09/18/2024 11:00 EST Office Visit [facility] Bariatric Surgery [place] [address] [place], [place] [address] Allen Thompson PA-C 111 [facility] 5 [place] [address] 10/26/2024 10:45 EST Telemedicine [facility] Neurology - [address] [id number] Sulema Nicole, GIULIA [address] [place] [address], Level 2 [place] [address] documented as of this encounter [...] mg documented in this encounter Care Teams Mint Machine Operator Relationship Specialty Start Date End Date Juma Herrera MD [address] [phone] PCP - General 01/07/19 03/13/21 Juma Herrera MD [address] [phone] 12/08/18 documented as of this encounter
--- OUTSIDE RECORDS SUMMARY | 2024-09-17 09:12 | XMS_ITS | Encounter Summary ---
Author Organization [facility] Address [address] [place] [address] Care Team Providers Care Tobacco Acreage Measurer Name Role Phone Juma Herrera MD Unavailable Juma Herrera MD Primary Care Provider [phone] Encounter Details Date Type Department Care Team (Latest Contact Info) Description 07/27/2019 9:20 EST - 07/28/2019 23:59 EST Hospital Encounter [facility] Pain Clinic Xray [address] [place], [place] [phone] Discharge Disposition: Home or Self Care Social [...] [facility] Bariatric Surgery - [place] [address] [place] [address] Allen Thompson PA-C 111 [facility] 5 [place] [phone] 10/26/2024 10:45 EST Telemedicine [facility] Neurology - [address] [phone] Sulema Nicole NP [address] [place] [address] 2 [place] [phone] documented as of this encounter Procedures Procedure Name Priority Date/Time Associated Diagnosis Comments PAIN CLINIC FL LUMBAR INJECTION Routine 07/27/2019 9:52 EST documented in this encounter Results * PAIN CLINIC FL LUMBAR INJECTION (07/27/2019 9:52 EST) Narrative 07/27/2019 9:52 EST This is a non-reportable exam. us Catalino Garrett MD IMG OTHER IMAGING ORDERABLES Fin al Result documented in this encounter Visit Diagnoses Not on filedocumented in this encounter Care Teams Tobacco Acreage Measurer Relationship Specialty Start Date End Date Juma Herrera MD [address] [facility] [place] [phone] PCP - General 01/07/19 03/13/21 Juma Herrera MD [address] [facility] [place] [phone] 12/08/18 documented as of this encounter
--- OUTSIDE RECORDS SUMMARY | 2024-09-17 09:12 | XMS_ITS | Encounter Summary ---
Author Organization [facility] Address [address] [place] [address] Care Team Providers Care Assisted Living Director Name Role Phone Juma Herrera MD Unavailable Juma Herrera MD Primary Care Provider [phone] Reason for Visit * Reason Onset Date Comments Neck Pain 03/27/2019 Encounter Details Date Type Department Care Team (Late st Contact Info) Description 03/27/2019 Orders Only [facility] Spine Program - [address] [place] [address] Kj Child MD [address] [facility] [place] [address] Neck pain (Primary Dx) Social [...] Info) Description 09/18/2024 11:00 EST Office Visit [facility] Bariatric Surgery [address] [address] Allen Thompson PA-C 111 [facility] 5 [place] [phone] 10/26/2024 10:45 EST Telemedicine [facility] Neurology - [address] [address] Sulema Nicole, TECH[employer]ICAL [employer] [address] [place] [address] 2 [place] [phone] documented as of this encounter Visit Diagnoses Diagnosis Neck pain- Primary Cervicalgia documented in this encounter Care Teams Assisted Living Director Relationship Specialty Start Date End Date Juma Herrera MD [address] [phone] PCP - General 01/07/19 03/13/21 Juma Herrera MD [address] [phone] 12/08/18 documented as of this encounter
--- OUTSIDE RECORDS SUMMARY | 2024-09-17 09:12 | XMS_ITS | Encounter Summary ---
Author Organization [facility] Address [address] [place] [address] Care Team Providers Care Pattern Perforating Machine Operator Name Role Phone Juma Herrera MD Unavailable Juma Herrera MD Primary Care Provider [phone] Reason for Visit * Reason Onset Date Comments Appointment Related 12/14/2019 Encounter Details Date Type Department Care Team (Late st Contact Info) Description 12/14/2019 Telephone [facility] Interventional Pain [address] [place] [address] Catalino Garrett MD [address] [facility] [address] [place] [address] Appointment Related Social History Tobacco [...] 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 documented in this encounter Plan of Treatment Upcoming Encounters Date Type Department Care Team (Late st Contact Info) Description 09/18/2024 11:00 EST Office Visit [facility] Bariatric Surgery - [place] [address] [place], [place] [address] Allen Thompson PA-C 111 [facility] 5 [place] [address] 10/26/2024 10:45 EST Telemedicine [facility] Neurology - [address] [phone] Sulema Nicole, GIULIA [address] [place] [address] [address] [place] [address] documented as of this encounter Visit Diagnoses Not on filedocumented in this encounter Care Teams Pattern Perforating Machine Operator Relationship Specialty Start Date End Date Juma Herrera MD [address] [place] [address] PCP - General 01/07/19 03/13/21 Juma Herrera MD [address] [place] [address] 12/08/18 documented as of this encounter
--- OUTSIDE RECORDS SUMMARY | 2024-09-17 09:12 | XMS_ITS | Encounter Summary ---
Author Organization [facility] [place] [facility] Address [address] [place] [address] Care Team Providers Care Rouge Miller Name Role Phone Juma Herrera MD Unavailable Juma Herrera MD Primary Care Provider [phone] Reason for Visit * Reason Comments Obesity Post op sleeve 5 yea rs 09/05/15 Encounter Details Date Type Department Care Team (Late st Contact Info) Description 09/16/2020 10:30 EST Office Visit [facility] Bariatric Surgery [facility] [address] [place] [address] Allen Thompson, PA-C [address] [place] [address], Level 5 [place] [address] Morbid obesity (HCC-CMS) (Primary Dx); [...] Morbid obesity with BMI of 45.0-49.9, adult ([facility]) SUBJECTIVE: Emesis: No complaints of emesis [...] needed next time. Seen and discussed with Track Announcer at this visit. Allen Thompson PA-C 09/16/2020 [...] Info) Description 09/18/2024 11:00 EST Office Visit [facility] Bariatric Surgery - [place] [address] [place] [address] Allen Thompson PA-C 111 [facility], Level 5 [place] [address] 10/26/2024 10:45 EST Telemedicine [facility] Neurology - [address] [place] 1 [place], [place] [phone] Sulema Nicole NP 1 [facility], Level 2 [place] [address] documented as of this encounter Visit Diagnoses Diagnosis Morbid obesity ([facility])- Primary Morbid obesity S/P laparoscopic sleeve gastrectomy Bariatric surgery status BMI 32.0-32.9,adult Body Mass Index 32.0-32.9, adult documented in this encounter Historical Medications * This list may reflect changes made after this encounter. calcium carbonate/vitamin D3 (VITAMIN D-3 ORAL) Take by mouth. MAGNESIUM ORAL Take 500 mg by mouth daily. added in this encounter Care Teams Rouge Miller Relationship Specialty Start Date End Date Juma Herrera MD [address] [place] [address] PCP - General 01/07/19 03/13/21 Juma Herrera MD [address] [place] [address] 12/08/18 documented as of this encounter
--- OUTSIDE RECORDS SUMMARY | 2024-09-17 09:12 | XMS_ITS | Encounter Summary ---
Author Organization [facility] Address [address] [place] [address] Care Team Providers Care Plush Finisher Name Role Phone Juma Herrera MD Unavailable Juma Herrera MD Primary Care Provider [phone] Reason for Visit * Reason Comments Obesity post op sleeve 4 yea rs 09/05/15 Encounter Details Date Type Department Care Team (Late st Contact Info) Description 09/18/2019 10:45 EST Office Visit [facility] Bariatric Surgery [facility] [address] [place] [address] Allen Thompson, PA-C [address] [place] [address], [facility], Level 5 [place] [address] Morbid obesity (HCC-CMS) (Primary Dx); [...] PA - 09/18/2019 1045 EST 09/22/2019 Tia Spain is here in follow-up to [...] Morbid obesity with BMI of 45.0-49.9, adult ([facility]) SUBJECTIVE: Emesis: No complaints of emesis [...] 3. Labs today. Seen and discussed with Aluminum Molder at this visit. MARGARITA Gomez 09/22/2019 10:32 * Sena Astorga, RD - 09/18/2019 1045 EST Nutrition Post [...] Office Visit [facility] Bariatric Surgery - [place] [address] [place] [address] Allen Thompson PA-C 111 [facility] 5 [place] [phone] 10/26/2024 10:45 EST Telemedicine [facility] Neurology - [address] [address] Sulema Nicole NP [address] [place] [address] Level 2 [place] [address] documented as of this encounter Results * (ABNORMAL) VITAMIN D (25,OH) (09/18/2019 12:34 EST) 25OH Vitamin D Tot 18.6(L) 30.0 - 100.0 ng/mL 09/21/2019 12:49 EST [facility] Comment: Vitamin D 25,OH Interpretive Ranges: Deficiency: ??<10.0 ng/mL Insufficiency: ??10.0 - 30.0 ng/mL Sufficiency: ??30.0 - 100.0 ng/mL Toxicity: ??>100.0 ng/mL Blood VENOUS BLOOD / Unknown Venipuncture / Unknown 09/18/2019 12:34 EST 09/18/2019 12:34 EST us Allen Thompson PA-C CHEMISTRY & BLOOD GA S ORDERABLES Final Result Performing Organization Address [facility]/ZIP Co de Phone Number [facility] [address] [place] [address] * THIAMIN (VITAMIN B1), WB (09/18/2019 12:34 EST) Thiamin (Vitamin B1), WB 129 70 - 180 nmol/L 09/22/2019 6:48 EST [facility] Comment: ADDITIONAL INFORMATION This test was developed and its performance characteristics determined by [facility] in a manner consistent with CLIA requirements. This test has not been cleared or approved by the U.S. Food and Drug Administration. Test Performed by: [address] [address] Child Welfare Specialist: Andrea López M.D. Ph.D.; CLIA# [id number] Blood VENOUS BLOOD / Unknown Venipuncture / Unknown 09/18/2019 12:34 EST 09/18/2019 12:34 EST Allen AVILA-Khushbu CHEMISTRY & BLOOD GA S ORDERABLES Final Result Performing Organization Address [facility] Co de Phone Number [facility] [address] [place] [address] * PTH INTACT (09/18/2019 12:34 EST) Pathologist [facility] Intact PTH 66 19 - 88 pg/mL 09/21/2019 12:12 EST [facility] Blood VENOUS BLOOD / Unknown Venipuncture / Unknown 09/18/2019 12:34 EST 09/18/2019 12:34 EST Allen AVILA-C CHEMISTRY & BLOOD GA S ORDERABLES Final Result Performing Organization Address [facility] Co de Phone Number [facility] [address] [place] [address] * IRON (09/18/2019 12:34 EST) Pathologist [facility] Iron 111 37 - 170 ug/dL 09/18/2019 14:12 [facility] Blood VENOUS BLOOD / Unknown Venipuncture / Unknown 09/18/2019 12:34 EST 09/18/2019 12:34 EST Allen Thompson PA-C CHEMISTRY & BLOOD GA S ORDERABLES Final Result Performing Organization Address [facility]/ZIP Co de Phone Number [facility] [address] [place] [address] * FERRITIN (09/18/2019 12:34 EST) Ferritin 32 10 - 291 ng/mL 09/21/2019 11:15 [facility] Blood VENOUS BLOOD / Unknown Venipuncture / Unknown 09/18/2019 12:34 EST 09/18/2019 12:34 EST Allen Thompson PA-C CHEMISTRY & BLOOD GA S ORDERABLES Final Result Performing Organization Address City/[facility] de Phone Number [facility] [address] [place] [address] * COMPLETE BLOOD COUNT (09/18/2019 12:34 EST) WBC 5.51 4.00 - 12.40 K/cmm 09/18/2019 13:59 [facility] RBC 4.80 3.86 - 5.04 M/cmm 09/18/2019 13:59 [facility] Hemoglobin 14.2 11.6 - 15.2 gm/dL 09/18/2019 13:59 [facility] HCT 42.5 34.9 - 44.4 % 09/18/2019 13:59 [facility] MCV 89 81 - 98 fl 09/18/2019 13:59 [facility] MCH 29.6 26.7 - 33.3 pg 09/18/2019 13:59 [facility] MCHC 33.4 32.1 - 35.9 gm/dL 09/18/2019 13:59 [facility] RDW-CV 13.1 <14.7 % 09/18/2019 13:59 [facility] RDW-SD 42.1 <50.4 fl 09/18/2019 13:59 [facility] PLT 263 141 - 377 K/cmm 09/18/2019 13:59 [facility] MPV 10.0 9.5 - 12.7 fl 09/18/2019 13:59 [facility] Blood VENOUS BLOOD / Unknown Venipuncture / Unknown 09/18/2019 12:34 EST 09/18/2019 12:34 EST Allen Thompson PA-C HEMATOLOGY & PF4 ORD ERABLES Final Result [facility] [address] [place] [address] * CALCIUM (09/18/2019 12:34 EST) Calcium 9.6 8.5 - 10.5 mg/dL 09/18/2019 14:12 [facility] Calculated Calcium 9.5 8.5 - 10.5 mg/dL 09/18/2019 14:12 [facility] Blood VENOUS BLOOD / Unknown Venipuncture / Unknown 09/18/2019 12:34 EST 09/18/2019 12:34 EST us Allen Thompson PA-C CHEMISTRY & BLOOD GA S ORDERABLES Final Result [facility] [address] [place] [address] * VITAMIN B12 (09/18/2019 12:34 EST) Vitamin B12 400 211 - 911 pg/mL 09/21/2019 11:15 [facility] Blood VENOUS BLOOD / Unknown Venipuncture / Unknown 09/18/2019 12:34 EST 09/18/2019 12:34 EST Allen Thompson PA-C CHEMISTRY & BLOOD GA S ORDERABLES Final Result [facility] [address] [place] [address] documented in this encounter Visit Diagnoses Diagnosis Morbid obesity ([facility])- Primary Morbid obesity S/P laparoscopic sleeve gastrectomy Bariatric surgery status BMI 30.0-30.9,adult Body Mass Index 30.0-30.9, adult Postsurgical malabsorption Other and unspecified postsurgical nonabsorption documented in this encounter Care Teams Plush Finisher Relationship Specialty Start Date End Date Juma Herrera MD [address] [phone] PCP - General 01/07/19 03/13/21 Juma Herrera MD [address] [phone] 12/08/18 documented as of this encounter
--- OUTSIDE RECORDS SUMMARY | 2024-09-17 09:12 | XMS_ITS | Encounter Summary ---
Author Organization [facility] Address [address] [place] [address] Care Team Providers Care Youth Coordinator Name Role Phone Juma Herrera MD Unavailable Juma Herrera MD Primary Care Provider [phone] Reason for Referral * Radiology Services (Routine/Next Available) - New Request Specialty Diagnoses / Procedures Referred By Contac t Referred To Contact Diagnoses Right shoulder pain, unspecified chronicity Procedures MSK US SHOULDER Starr Hart PA-C Referral ID Status Reason Start Date Expiration Date V isits Requested Visits Authorized [id number] New Request 03/03/2019 1 1 Encounter Details Date Type Department Care Team (Late st Contact Info) Description 03/03/2019 Orders Only [facility] Sports Medicine Program - [place] [address] [place] [address] Starr Hart PA-C Right shoulder pain, unspecified [...] EST Office Visit [facility] Bariatric Surgery [facility] [address] [place] [address] Allen Thompson PA-C [address] [place] [address] 5 [place] [phone] 10/26/2024 10:45 EST Telemedicine [facility] Neurology - [facility] [place] [place] 1 [place], [place] [address] Sulema Nicole NP [address] [place] [address] [address] [place] [phone] Pending Results Name Type Priority Associated Diagnoses Date /Time MSK US SHOULDER Imaging Routine Right shoulder pain, unspecified chronicity 03/03/2019 13:15 EDT documented as of this encounter Visit Diagnoses Diagnosis Right shoulder pain, unspecified chronicity- Primary documented in this encounter Care Teams Youth Coordinator Relationship Specialty Start Date End Date Juma Herrera MD [address] [phone] PCP - General 01/07/19 03/13/21 Juma Herrera MD [address] [phone] 12/08/18 documented as of this encounter
--- OUTSIDE RECORDS SUMMARY | 2024-09-17 09:12 | XMS_ITS | Encounter Summary ---
Author Organization [facility] Address [address] [place] [address] Care Team Providers Care Workforce Services Representative Name Role Phone Juma Herrera MD Unavailable Juma Herrera MD Primary Care Provider [phone] Reason for Visit * Reason Onset Date Comments Prior Auth, Other (i.e. radiology, etc.) 019 Encounter Details Date Type Department Care Team (Late st Contact Info) Description 07/28/[address] [facility] Interventional Pain 62 [facility] [address] Catalino Garrett MD 62 [facility] [address] [place] [address] Prior Auth, Other (i.e. radiology, [...] Description 09/18/2024 11:00 EST Office Visit [facility] Bariatric Surgery - [place] [address] [place] [address] Allen Thompson, PALizettC [address] [place] [address], Level 5 [place] [phone] 10/26/2024 10:45 EST Telemedicine [facility] Neurology - [address] [place], [place] [phone] Sulema Nicole, SEA FOAM KISS MAKER 1 [facility], Level [address] [place] [phone] documented as of this encounter Visit Diagnoses Not on filedocumented in this encounter Care Teams Workforce Services Representative Relationship Specialty Start Date End Date Juma Herrera MD [address] [phone] PCP - General 01/07/19 03/13/21 Juma Herrera MD [address] [phone] 12/08/18 documented as of this encounter
--- OUTSIDE RECORDS SUMMARY | 2024-09-17 09:12 | XMS_ITS | Encounter Summary ---
Author Organization [facility] Address [address] [place] [address] Care Team Providers Care Development Mechanic Name Role Phone Juma Herrera MD Unavailable Juma Herrera MD Primary Care Provider [phone] Reason for Referral * Consult (Routine) - Specialty Report Received Specialty Diagnoses / Procedures Referred By Contac t Referred To Contact Orthopedic Surgery Diagnoses Chronic bilateral low back pain without sciatica Cervicalgia Starr Hart PA-C [facility] Spine Program - [address] [place] [address] Phone: tel: fax: Referral ID Status Reason Start Date Expiration Date Visits Requested Visits Authorized [id number] Specialty Report Received Specialty Services Required 03/03/2019 1 1 Question Answer Reason for Request: low back pain, neck pain Reason for Visit * Reason Comments Shoulder Pain right * Prior Authorization (Routine) - Specialty Report Received Specialty Diagnoses / Procedures Referred By Contac t Referred To Contact Diagnoses Right shoulder pain, unspecified chronicity Starr Hart PA-C Referral ID Status Reason Start Date Expiration Date Visits Requested Visits Authorized [id number] Specialty Report Received Specialty Services Required 02/20/2019 1 1 Encounter Details Date Type Department Care Team (Late st Contact Info) Description 03/03/2019 13:00 EDT Office Visit [facility] Sports Medicine Program - [address] [place], [place] [id number] Starr Hart PA-C Chronic bilateral low back [...] Nina Peñaloza an documented in this encounter Discharge Diagnoses Diagnosis M54.5 Low back pain-M54.5[ICD-10-CM] G89.29 Other chronic pain-G89.29[ICD-10-CM] documented in this encounter Discharge Disposition Disposition Code Departure Means Destination Auto Discharge documented in this encounter Progress Notes * Bee Jackson - 03/03/2019 1300 EDT Right USG SA Injection Bupivacaine 0.5% 10 mL Med lot number [id number] [facility] number: [id number] Exp date:09/23 Appliances Sample Maker: [employer] Drug waste: 10 mL vial, used mL,3 wasted 7 mL Triamcinolone 200 mg/5mL Med lot number:[id number] [facility] number:[id number] Exp date: 09/22 Appliances Sample Maker: [employer] Drug waste:5 mL vial, used 2 mL, wasted 3 mL LIDOCAINE 2 % 20 mL Med lot number:[id number] [facility] number:[id number] Exp date: 10/23 Appliances Sample Maker: [employer] Drug waste: 20 mL vial, used 6 mL, wasted 14mL Bee Jackson 03/03/2019 12:52 documented in this encounter Procedure Notes * Starr Renee - 03/03/2019 1300 EDT Chief [...] Visit [facility] Bariatric Surgery - [place] [address] [place] [address] Allen [place] PA-C 111 [facility], Level 5 [place] [phone] 10/26/2024 10:45 EST Telemedicine [facility] Neurology - [address] [phone] Sulema Nicole NP [address] [place] [address] [address] 2 [place] [address] Scheduled Referrals Name Type Priority Associated Diagnoses Order Schedule AMB CONS/FOLLOW UP ORTHOPEDICS Outpatient Referral Routine Chronic bilateral low back pain without sciatica Cervicalgia Ordered: 03/03/2019 documented as of this encounter Visit Diagnoses Diagnosis Chronic bilateral low back pain without sciatica- Primary Cervicalgia Nontraumatic incomplete tear of right rotator cuff Partial tear of rotator cuff documented in this encounter Care Teams Development Mechanic Relationship Specialty Start Date End Date Juma Herrera MD [address] [phone] PCP - General 01/07/19 03/13/21 Juma Herrera MD [address] [phone] 12/08/18 documented as of this encounter
--- OUTSIDE RECORDS SUMMARY | 2024-09-17 09:12 | XMS_ITS | Encounter Summary ---
Author Organization [facility] Address [address] [place] [address] Care Team Providers Care Hanging Flags Decorator Name Role Phone Juma Herrera MD Unavailable Juma Herrera MD Primary Care Provider [phone] Reason for Referral * Radiology Services (Routine) - New Request Specialty Diagnoses / Procedures Referred By Contac t Referred To Contact Diagnoses Low back pain, unspecified back pain laterality, unspecified chronicity, with sciatica presence unspecified Procedures L SPINE 4 OR MORE VIEWS Kj Child MD Phone: tel: fax: Referral ID Status Reason Start Date Expiration Date V isits Requested Visits Authorized [id number] New Request 04/03/2019 1 1 Reason for Visit * Reason Onset Date Comments Back Pain 04/03/2019 Encounter Details Date Type Department Care Team (Late st Contact Info) Description 04/03/2019 Orders Only [facility] Spine Program - [address] [place] [address] Kj Child MD [address] [place] [address] [place] [address] Low back pain, unspecified back [...] Visit [facility] Bariatric Surgery - [place] [address] [place] [address] Allen [place] PA-C [address] [place] [address] 5 [place] [address] 10/26/2024 10:45 EST Telemedicine [facility] Neurology [address] [phone] Sulema Nicole NP [address] [place] [address] [address] [place] [address] documented as of this encounter Procedures Procedure [...] upper quadrant. Kj Child MD IMG DIAGNOSTIC IMAGING O RDERABLES Final Result documented in this encounter Visit Diagnoses Diagnosis Low back pain, unspecified back pain laterality, unspecified chronicity, with sciatica presence unspecified- Primary documented in this encounter Care Teams Hanging Flags Decorator Relationship Specialty Start Date End Date Juma Herrera MD [address] [phone] PCP - General 01/07/19 03/13/21 Juma Herrera MD [address] [phone] 12/08/18 documented as of this encounter
--- OUTSIDE RECORDS SUMMARY | 2024-09-17 09:12 | XMS_ITS | Encounter Summary ---
Author Organization [facility] Address [address] [place] [address] Care Team Providers Care Vocational Rehabilitation Consultant Name Role Phone Juma Herrera MD Unavailable Juma Herrera MD Primary Care Provider [phone] Reason for Visit * Reason Onset Date Comments Appointment Related 06/05/2019 Encounter Details Date Type Department Care Team (Late st Contact Info) Description 06/05/2019 Telephone [facility] Spine Program - [address] [place] [address] Kj Child MD [address] [facility] [place] [address] Appointment Related Social History Tobacco [...] Telephone Encounter - Miguel Crandall - 06/05/2019 7857 EDT Returned Tia's call, inquiring about the [...] [facility] - [place] [address] [place] [address] Allen [place] PA-C 111 [facility] 5 [place] [address] 10/26/2024 10:45 EST Telemedicine [facility] Neurology - [address] [address] Sulema Nicole NP [address] [place] [address] 2 [place] [address] documented as of this encounter Visit Diagnoses Not on filedocumented in this encounter Care Teams Vocational Rehabilitation Consultant Relationship Specialty Start Date End Date Juma Herrera MD [address] [phone] PCP - General 01/07/19 03/13/21 Juma Herrera MD [address] [phone] 12/08/18 documented as of this encounter
--- OUTSIDE RECORDS SUMMARY | 2024-09-17 09:12 | XMS_ITS | Encounter Summary ---
Author Organization [facility] Address [address] [place] [address] Care Team Providers Care Motor Pool Driver Name Role Phone Juma Herrera MD Unavailable Juma Herrera MD Primary Care Provider [phone] Encounter Details Date Type Department Care Team (Late st Contact Info) Description 09/18/2019 12:15 EST Phlebotomy Only [facility] COVID Testing [facility] [address] [place], [place] [phone] [facility] Morbid obesity ([facility]); S/P laparoscopic sleeve gastrectomy; BMI 30.0-30.9,adult; [...] Office Visit [facility] Bariatric Surgery [facility] [address] [place] [address] Allen [place], PALizettC [address] [place] [address] 5 [place] [phone] 10/26/2024 10:45 EST Telemedicine [facility] Neurology - [address] [phone] Sulema Nicole NP [address] [place] [address] 2 [place] [phone] documented as of this encounter Procedures Procedure Name Priority Date/Time Associated Diagnosis Comments THIAMIN (VITAMIN B1), WB Routine 09/18/2019 12:34 EST Morbid obesity ([facility]) S/P laparoscopic sleeve gastrectomy BMI 30.0-30.9,adult Postsurgical malabsorption VITAMIN D (25,OH) Routine 09/18/2019 12: 34 EST Morbid obesity ([facility]) S/P laparoscopic sleeve gastrectomy BMI 30.0-30.9,adult Postsurgical [...] 30.0 - 100.0 ng/mL 09/21/2019 12:49 EST [facility] Comment: Vitamin D 25,OH Interpretive Ranges: Deficiency: ??<10.0 ng/mL Insufficiency: ??10.0 - 30.0 ng/mL Sufficiency: ??30.0 - 100.0 ng/mL Toxicity: ??>100.0 ng/mL Blood VENOUS BLOOD / Unknown Venipuncture / Unknown 09/18/2019 12:34 EST 09/18/2019 12:34 EST Allen AVILA-C CHEMISTRY & BLOOD GA S ORDERABLES Final Result Performing Organization Address [facility] Co de Phone Number [facility] [address] [place] [address] * THIAMIN (VITAMIN B1), WB (09/18/2019 12:34 EST) Thiamin (Vitamin B1), WB 129 70 - 180 nmol/L 09/22/2019 6:48 EST [facility] Comment: ADDITIONAL INFORMATION This test was developed and its performance characteristics determined by [facility] in a manner consistent with CLIA requirements. This test has not been cleared or approved by the U.S. Food and Drug Administration. Test Performed by: [facility] - [address] [address] Computer Console Operator: Andrea López M.D. Ph.D.; CLIA# [id number] Blood VENOUS BLOOD / Unknown Venipuncture / Unknown 09/18/2019 12:34 EST 09/18/2019 12:34 EST us Allen [place] PA-C CHEMISTRY & BLOOD GA S ORDERABLES Final Result Performing Organization Address [facility]/ZIP Co de Phone Number [facility] [address] [place] [address] * PTH INTACT (09/18/2019 12:34 EST) Intact PTH 66 19 - 88 pg/mL 09/21/2019 12:12 EST [facility] Blood VENOUS BLOOD / Unknown Venipuncture / Unknown 09/18/2019 12:34 EST 09/18/2019 12:34 EST us Allen AVILA-Khushbu CHEMISTRY & BLOOD GA S ORDERABLES Final Result Performing Organization Address City/[facility]/ZIP Co de Phone Number [facility] [address] [place] [address] * IRON (09/18/2019 12:34 EST) Iron 111 37 - 170 ug/dL 09/18/2019 14:12 EST [facility] Blood VENOUS BLOOD / Unknown Venipuncture / Unknown 09/18/2019 12:34 EST 09/18/2019 12:34 EST Allen [place] PA-C CHEMISTRY & BLOOD GA S ORDERABLES Final Result Performing Organization Address City/[facility]/ZIP Co de Phone Number [facility] [address] [place] [address] * FERRITIN (09/18/2019 12:34 EST) Pathologist [facility] Ferritin 32 10 - 291 ng/mL 09/21/2019 11:15 [facility] Blood VENOUS BLOOD / Unknown Venipuncture / Unknown 09/18/2019 12:34 EST 09/18/2019 12:34 EST us Allen AVILA-C CHEMISTRY & BLOOD GA S ORDERABLES Final Result Performing Organization Address City/[facility]/ZIP Co de Phone Number [facility] [address] [place] [address] * COMPLETE BLOOD COUNT (09/18/2019 12:34 EST) Pathologist [facility] WBC 5.51 4.00 - 12.40 K/cmm 09/18/2019 13:59 [facility] RBC 4.80 3.86 - 5.04 M/cmm 09/18/2019 13:59 [facility] Hemoglobin 14.2 11.6 - 15.2 gm/dL 09/18/2019 13:59 [facility] HCT 42.5 34.9 - 44.4 % 09/18/2019 13:59 [facility] MCV 89 81 - 98 fl 09/18/2019 13:59 [facility] MCH 29.6 26.7 - 33.3 pg 09/18/2019 13:59 [facility] MCHC 33.4 32.1 - 35.9 gm/dL 09/18/2019 13:59 [facility] RDW-CV 13.1 <14.7 % 09/18/2019 13:59 [facility] RDW-SD 42.1 <50.4 fl 09/18/2019 13:59 [facility] PLT 263 141 - 377 K/cmm 09/18/2019 13:59 [facility] MPV 10.0 9.5 - 12.7 fl 09/18/2019 13:59 [facility] Blood VENOUS BLOOD / Unknown Venipuncture / Unknown 09/18/2019 12:34 EST 09/18/2019 12:34 EST us Allen [place] PA-C HEMATOLOGY & PF4 ORD ERABLES Final Result Performing Organization Address City/[facility]/ZIP Co de Phone Number [facility] [address] [place] [address] * CALCIUM (09/18/2019 12:34 EST) Calcium 9.6 8.5 - 10.5 mg/dL 09/18/2019 14:12 [facility] Calculated Calcium 9.5 8.5 - 10.5 mg/dL 09/18/2019 14:12 [facility] Blood VENOUS BLOOD / Unknown Venipuncture / Unknown 09/18/2019 12:34 EST 09/18/2019 12:34 EST us Allen [place] PA-C CHEMISTRY & BLOOD GA S ORDERABLES Final Result Performing Organization Address City/[facility]/ZIP Co de Phone Number [facility] [address] [place] [address] * VITAMIN B12 (09/18/2019 12:34 EST) Vitamin B12 400 211 - 911 pg/mL 09/21/2019 11:15 [facility] Blood VENOUS BLOOD / Unknown Venipuncture / Unknown 09/18/2019 12:34 EST 09/18/2019 12:34 EST us Allen [place] PA-C CHEMISTRY & BLOOD GA S ORDERABLES Final Result [facility] [address] [place] [address] documented in this encounter Visit Diagnoses Diagnosis Morbid obesity ([facility]) Morbid obesity S/P laparoscopic sleeve gastrectomy Bariatric surgery status BMI 30.0-30.9,adult Body Mass Index 30.0-30.9, adult Postsurgical malabsorption Other and unspecified postsurgical nonabsorption documented in this encounter Care Teams Motor Pool Driver Relationship Specialty Start Date End Date Juma Herrera MD [address] [id number] PCP - General 01/07/19 03/13/21 Juma Herrera MD [address] [phone] 12/08/18 documented as of this encounter
--- OUTSIDE RECORDS SUMMARY | 2024-09-17 09:12 | XMS_ITS | Encounter Summary ---
Author Organization [facility] Address [address] [place] [address] Care Team Providers Care Clinical Geneticist Name Role Phone Juma Herrera MD Unavailable Juma Herrera MD Primary Care Provider [phone] Reason for Visit * Reason Onset Date Comments Immunizations 10/31/2020 Encounter Details Date Type Department Care Team (Late st Contact Info) Description 10/31/2020 Telephone [facility] Interventional Pain [address] [place] [address] Catalino Garrett MD [address] [place] [address] Immunizations Social History Tobacco Use [...] Encounter - Jenni Barajas MA - 10/31/2020 8847 EST Called patient to verify whether or not she have received any vaccinations in the past two weeks orplan on receiving any vaccinations in the next two weeks. Patient declines. documented in this encounter Plan of Treatment Upcoming Encounters Date Type Department Care Team (Late st Contact Info) Description 09/18/2024 11:00 EST Office Visit [facility] Bariatric Surgery [place] [address] [place] [address] Allen [place], ZHOUC [address] [place] [address] 5 [place] [phone] 10/26/2024 10:45 EST Telemedicine [facility] Neurology - [address] [phone] Sulema Nicole, GIULIA [address] [place] [address] 2 [place] [phone] documented as of this encounter Visit Diagnoses Not on filedocumented in this encounter Care Teams Clinical Geneticist Relationship Specialty Start Date End Date Juma Herrera MD [address] [phone] PCP - General 01/07/19 03/13/21 Juma Herrera MD [address] [phone] 12/08/18 documented as of this encounter
--- OUTSIDE RECORDS SUMMARY | 2024-09-17 09:12 | XMS_ITS | Encounter Summary ---
Author Organization [facility] Address [address] [place] [address] Care Team Providers Care Real Estate Office Manager Name Role Phone Juma Herrera MD [...] 11:00 EST Office Visit [facility] Bariatric Surgery - [place] [address] [place] [address] Allen [place], PALizettC [address] [facility], [address] [place] [address] 10/26/2024 10:45 EST Telemedicine [facility] Neurology - [address] [phone] Sulema Nicole, BALLING MACHINE OPERATOR 1 [facility] 2 [place] [phone] documented as of this encounter Visit Diagnoses Not on filedocumented in this encounter Care Teams Real Estate Office Manager Relationship Specialty Start Date End Date Juma Herrera MD [address] [facility] [place] [address] PCP - General 01/07/19 03/13/21 Juma Herrera MD [address] [facility] [place] [address] 12/08/18 documented as of this encounter
--- OUTSIDE RECORDS SUMMARY | 2024-09-17 09:12 | XMS_ITS | Encounter Summary ---
Author Organization [facility] Address [address] [place] [address] Care Team Providers Care Accountant Supervisor Name Role Phone Juma Herrera MD Unavailable Juma Herrera MD Primary Care Provider [phone] Reason for Visit * Reason Comments Pain Neck Pain Shoulder Pain Back Pain Encounter Details Date Type Department Care Team (Latest Contact Info) Description 11/06/2019 10:00 EST Procedure visit [facility] Interventional Pain [address] [place] [address] Catalino Garrett MD [address] [place] [address] Sacroiliitis (HCC-CMS) (Primary Dx); DDD [...] No 09/05/2015 12:00 NATALY Khoa Hernandez * Are you blind or [...] 10:00 EST [facility] [address] [phone] Patient Instructions You have had your bilateral [...] Candida Virgen MA - 11/06/2019 1000 EST [facility] Rooming Note 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 Also returning is her right neck and [...] BACK Comment - - Gerry MEHTA * Counter, ALEXANDER Pepper - 11/06/2019 1000 EST ATTENTION: This Checklist should be reviewed with the patient, provider, nurse/MA, and hvac/r service technician in the room prior to local [...] Description 09/18/2024 11:00 EST Office Visit [facility] Bariatric Surgery - [address] [address] Allen [place] PA-C 111 [facility], Level [address] [place] [address] 10/26/2024 10:45 EST Telemedicine [facility] Neurology - [address] [address] Sulema Nicole NP [address] [place] [address], Level 2 [place] [phone] documented as of this encounter Visit Diagnoses Diagnosis Sacroiliitis ([facility] Primary Sacroiliitis, not elsewhere classified DDD (degenerative [...] mg documented in this encounter Care Teams Accountant Supervisor Relationship Specialty Start Date End Date Juma Herrera MD [address] [phone] PCP - General 01/07/19 03/13/21 Juma Herrera MD [address] [phone] 12/08/18 documented as of this encounter
--- OUTSIDE RECORDS SUMMARY | 2024-09-17 09:12 | XMS_ITS | Encounter Summary ---
Author Organization [facility] Address [address] [place] [address] Care Team Providers Care Air Brush Artist Name Role Phone Juma Herrera MD Unavailable Juma Herrera MD Primary Care Provider [phone] Reason for Visit * Reason Onset Date Comments Prior Auth, Other (i.e. radiology, etc.) 020 Encounter Details Date Type Department Care Team (Late st Contact Info) Description 11/06/2019 Telephone [facility] Interventional Pain [address] [facility] [place] [address] Catalino Garrett MD [address] [place] [address] Prior Auth, Other (i.e. radiology, [...] signed ABN for this appointment. CPT Code 19617 has no medicare coverage documents. * Telephone Encounter - Ermelinda Fisher - 11/06/2019 1031 EST Cervical Epidural Steroid Injection Please Obtain Prior Auth Patient is schedued for 01/07/2020 at 9:15am with Dr. Garrett documented in this encounter Plan of Treatment Upcoming Encounters Date Type Department Care Team (Late st Contact Info) Description 09/18/2024 11:00 EST Office Visit [facility] Bariatric Surgery - [place] [address] [place], [place] [address] Allen [place] PA-C 111 [facility] 5 [place] [phone] 10/26/2024 10:45 EST Telemedicine [facility] Neurology - S [address] [phone] Sulema Nicole, DIRECTOR OF CAREER SERVICES [address] [facility] 2 [place] [phone] documented as of this encounter Visit Diagnoses Not on filedocumented in this encounter Care Teams Air Brush Artist Relationship Specialty Start Date End Date Juma Herrera MD [address] [place] [address] PCP - General 01/07/19 03/13/21 Juma Herrera MD [address] [place] [address] 12/08/18 documented as of this encounter
--- OUTSIDE RECORDS SUMMARY | 2024-09-17 09:12 | XMS_ITS | Encounter Summary ---
Author Organization [facility] Address [address] [place] [address] Care Team Providers Care Lay Brother Name Role Phone Juma Herrera MD Unavailable Juma Herrera MD Primary Care Provider [phone] Reason for Referral * Prior Authorization (Routine) - Specialty Report Received Specialty Diagnoses / Procedures [facility] Referred To Contact Diagnoses Right shoulder pain, unspecified chronicity Starr Hart PA-C Referral ID Status Reason Start Date Expiration Date Visits Requested Visits Authorized [id number] Specialty Report Received Specialty Services Required 02/20/2019 1 1 Question Answer Reason for Request: Right USG AC Injection Comments The purpose of this consult request is to inform the scheduling staff that a procedure/surgery needs to be prior-authorized before it is scheduled. Right USG AC Injection Encounter Details Date Type Department Care Team (Late st Contact Info) Description 02/18/2019 Orders Only [facility] Sports Medicine Program - [place] [address] Starr Hart PA-C Right shoulder pain, unspecified [...] Office Visit [facility] Bariatric Surgery [address] [address] Allen Thompson PA-C [address] [place] [address] 5 [place] [address] 10/26/2024 10:45 EST Telemedicine [facility] Neurology - [address] [phone] Sulema Nicole NP [address] [place] [address] 2 [place] [phone] Scheduled Referrals Name Type Priority Associated Diagnoses Order Schedule AMB CONS/FOLLOW UP PROCEDURE PRIOR AUTHORIZATION REQUEST Outpatient Referral Routine Right shoulder pain, unspecified chronicity Ordered: 02/20/2019 documented as of this encounter Visit Diagnoses Diagnosis Right shoulder pain, unspecified chronicity- Primary documented in this encounter Care Teams Lay Brother Relationship Specialty Start Date End Date Juma Herrera MD [address] [place] [address] PCP - General 01/07/19 03/13/21 Juma Herrera MD [address] [address] 12/08/18 documented as of this encounter
--- OUTSIDE RECORDS SUMMARY | 2024-09-17 09:12 | XMS_ITS | Encounter Summary ---
Author Organization [facility] Address [address] [place] [address] Care Team Providers Care Promotional Model Name Role Phone Juma Herrera MD Unavailable Juma Herrera MD Primary Care Provider [phone] Shonda Sánchez NP Primary Care Provider [phone] [facility] [phone] Curtis Burns MD Primary Care Provider [phone] Encounter Details Date Type Department Care Team (Late st Contact Info) Description 09/09/2019 Lab Requisition [facility] Pathology & Laboratory Medicine - [address] [address] Brit Veliz, HORSEBACK RIDING INSTRUCTOR [address] [place] [phone] Encounter for other general examination Social History [...] Info) Description 09/18/2024 11:00 EST Office Visit [facility] Bariatric Surgery [facility] [address] [place] [address] Allen Thompson PA-C [address] [place] [address] 5 [place] [phone] 10/26/2024 10:45 EST Telemedicine [facility] Neurology - [address] [phone] Sulema Nicole NP [address] [place] [address] 2 [place] [phone] documented as of this encounter Procedures Procedure [...] compatible with prior operative effect. 09/11/2019 17:42 [facility] at 1741 Clinical History Chronic pelvic pain 09/11/2019 17:42 [facility] Attestation There was significant resident/fellow involvement in the diagnostic evaluation of this case. By the signature below, the attending physician certifies that they have personally conducted a gross and/or microscopic examination of the described specimens and rendered or confirmed the above diagnosis. 09/11/2019 17:42 [facility] at 1741 Gross Description A. Received in formalin labelled with proper patient identification (initials C, S) and 1. Peritoneal tubular structure is a white glistening tissue (5.3 cm in length ranging from 0.2 cm to 0.3 cm in diameter). The outer surface is partially hyperemic. The cut surfaces are ko-white. Four entry level marketing representative cross sections are submitted in A1. [...] The soft tissues have ko-brown cut surfaces. Community Educator sections are submitted as follows: BLOCK LOUIE B1-B2- right fallopian tube B3-B4- right ovary B5- left ovary B6- soft tissue Morenita Sandoval 09/10/2019 09:50 09/11/2019 17:42 EST [facility] Resident/Jorje w: Rosamaria Lopez MD 09/11/2019 17:42 EST [facility] Scanned Images 09/11/2019 17:42 EST [facility] Tissue BOTH OVARIES / Unknown 09/09/2019 9:15 EST 09/09/2019 22:17 EST Tissue specimen (specimen) BOTH OVARIES / Unknown 09/09/2019 9:15 EST 09/09/2019 22:17 EST us Brit Veliz NP PATHOLOGY ORDERABLES Final Re sult [facility] [address] [place] [address] documented in this encounter Visit Diagnoses Diagnosis Encounter for other general examination documented in this encounter Additional Health Concerns Infection Onset Date Last Indicated Resolved Time COVID-19 08/15/2021 08/15/2021 09/04/2021 22:1 5 EST documented as of this encounter Care Teams Promotional Model Relationship Specialty Start Date End Date Juma Herrera MD [address] [facility] [place] [address] PCP - General 01/07/19 03/13/21 Shonda Sánchez NP [address] [place] [address] [address] [place] [address] PCP - General 03/14/21 01/31/22 [facility] [address] [place] [address] PCP - General 02/01/22 07/05/22 Curtis Burns MD [address] [facility] [address] [place] [address] PCP - General Emergency Medicine 07/06/22 Juma Herrera MD [address] [facility] [place] [address] 12/08/18 documented as of this encounter
--- OUTSIDE RECORDS SUMMARY | 2024-09-17 09:12 | XMS_ITS | Encounter Summary ---
Author Organization [facility] Address [address] [place] [address] Care Team Providers Care Pole Maker Name Role Phone Juma Herrera MD Unavailable Juma Herrera MD Primary Care Provider [phone] Shonda Sánchez NP Primary Care Provider [phone] [facility] Primary Care Provider [phone] Curtis Burns MD Primary Care Provider [phone] Encounter Details Date Type Department Care Team (Late st Contact Info) Description 11/14/2020 Lab Requisition [facility] Pathology & Laboratory Medicine - [address] [address] Outr Resulting Lab, Provider Social [...] EST Office Visit [facility] Bariatric Surgery [facility] [address] [place] [address] Allen Thompson PA-C [address] [place] [address] 5 [place] [address] 10/26/2024 10:45 EST Telemedicine [facility] Neurology - [address] [place] [address] Sulema Nicole NP [address] [place] [address] 2 [place] [phone] documented as of this encounter Procedures Procedure Name Priority Date/Time Associated Diagnosis Comments ZZCOVID-19 TEST [facility] PCR Today 11/14/2020 10:36 EDT COVID-19 TESTING Routine 11/14/2020 10:3 6 EDT documented in this encounter Results * COVID-19 TEST [facility] PCR (11/14/2020 10:36 EDT) Swab ENTIRE NASOPHARYNX / Unknown 11/14/2020 10:36 EDT 11/14/2020 16:56 EDT us Provider Outr Resulting Lab MICROBIOLOGY - GENER AL ORDERABLES Final Result [facility] [address] [place] [address] * COVID-19 TESTING (11/14/2020 10:36 EDT) COVID-19 rt-PCR Result Negative Negative 11/15/2020 13:39 EDT [facility] Comment: This test has [...] developed and its performance characteristics determined by [facility]. It has not been cleared or [...] defined by the FDA Performed on the [employer] 7 Pro RT-PCR System. Performing Lab [facility] 11/15/2020 13:39 EDT [facility] Swab 11/14/2020 10:3 6 EDT 11/14/2020 16:56 EDT us Provider Outr Resulting Lab MICROBIOLOGY - GENER AL ORDERABLES Final Result [facility] [address] [place] [address] documented in this encounter Visit Diagnoses Not on filedocumented in this encounter Additional Health Concerns Infection Onset Date Last Indicated Resolved Time COVID-19 08/15/2021 08/15/2021 09/04/2021 22:1 5 EST documented as of this encounter Care Teams Pole Maker Relationship Specialty Start Date End Date Juma Herrera MD [address] [place] [address] PCP - General 01/07/19 03/13/21 Shonda Sánchez NP [address] [facility] [address] [place] [address] PCP - General 03/14/21 01/31/22 [facility] [place] [address] [place] [address] PCP - General 02/01/22 07/05/22 Curtis Burns MD [address] [place] [address] PCP - General Emergency Medicine 07/06/22 Juma Herrera MD [address] [place] [address] 12/08/18 documented as of this encounter
--- OUTSIDE RECORDS SUMMARY | 2024-09-17 09:13 | XMS_ITS | Encounter Summary ---
Author Organization [facility] Address [address] [place] [address] Care Team Providers Care Direct Support Staff Name Role Phone Juma Herrera MD Primary Care Provider [phone] Encounter Details Date Type Department Care Team (Late st Contact Info) Description 10/08/2017 Documentation Visit [facility] Bariatric Surgery - [address] [place] [address] Mary Rosales RN Social History Tobacco Use Types Packs/Day Years Used Date Smoking Tobacco: Former Cigarettes Q uit: 01/13/2009 Alcohol Use Standard Drinks/Week Comments Yes 0 (1 standard drink = 0.6 oz pur e alcohol) very rarely Comments Unknown Sex and Gender Information Value Date Recorded [...] a physical, mental, or emotional condition, do you have difficulty doing errands alone such as visiting a doctor's office or shopping? (15 years old or older) Answer Date of Assessment Author No 09/05/2015 12:00 EST Mary, Khoa bruce documented as of this encounter Mental Status * Because of a physical, mental, or emotional condition, do you have serious difficulty concentrating, remembering, or making decisions? (5 years old or older) Answer Entry Date Author No 09/05/2015 12:00 EST Khoa Hernandez documented in this encounter Progress Notes * Mary Rosales RN - 10/08/2017 1456 EST Documentation only. documented in this encounter Plan of Treatment Upcoming Encounters Date Type Department Care Team (Late st Contact Info) Description 09/18/2024 11:00 EST Office Visit [facility] Bariatric Surgery [place] [address] [place], [place] [address] Allen Thompson PA-C 111 [facility] 5 [place] [address] 10/26/2024 10:45 EST Telemedicine [facility] Neurology - [address] [phone] Sulema Nicole, GIULIA [address] [place] [address] Level 2 [place] [phone] documented as of this encounter Procedures Procedure Name Priority Date/Time Associated Diagnosis Comments VITAMIN D (25,OH) Routine 09/26/2017 IRON Routine 09/26/2017 FERRITIN Routine 09/26/2017 documented in this encounter Results * (ABNORMAL) VITAMIN D (25,OH) (09/26/2017) 25OH Vitamin D Tot, External 14.8(A) 30 - 100 [facility] Blood specimen (specimen) 09/26/2017 us Allen Thompson PA-C CHEMISTRY & BLOOD GA S ORDERABLES Final Result [facility] * IRON (09/26/2017) Iron, External 93 [facility] Blood specimen (specimen) 09/26/2017 us Allen Thompson PA-C CHEMISTRY & BLOOD GA S ORDERABLES Final Result Performing Organization Address City/[facility]/ZIP Co de Phone Number [facility] * FERRITIN (09/26/2017) Ferritin, External 8 [facility] Blood specimen (specimen) 09/26/2017 us Allen Thompson PA-C CHEMISTRY & BLOOD GA S ORDERABLES Final Result Performing Organization Address City/[facility]/ZIP Co de Phone Number [facility] documented in this encounter Visit Diagnoses Not on filedocumented in this encounter Care Teams Direct Support Staff Relationship Specialty Start Date End Date Juma Herrera MD [address] [facility] [place] [address] PCP - General 09/25/12 12/07/18 documented as of this encounter
--- OUTSIDE RECORDS SUMMARY | 2024-09-17 09:13 | XMS_ITS | Encounter Summary ---
Author Organization [facility] Address [address] [place] [address] Care Team Providers Care Ladle Car Operator Name Role Phone Juma Herrera MD Primary Care Provider [phone] Reason for Visit * Reason Onset Date Comments Appointment Related 07/09/2018 Encounter Details Date Type Department Care Team (Late st Contact Info) Description 07/09/2018 Telephone [facility] Sports Medicine Program - [address] [place] [address] Starr Hart PALizettC Appointment Related [...] No 09/05/2015 12:00 EST Khoa Hernandez documented as of this encounter Mental Status * Because of a physical, mental, or emotional condition, do you have serious difficulty concentrating, remembering, or making decisions? (5 years old or older) Answer Entry Date Author No 09/05/2015 12:00 EST Khoa Hernandez documented in this encounter Miscellaneous Notes * Telephone Encounter - Bee Jackson - 07/09/2018 1055 EST I called and left Tia a message with the date and time of her MRI Jul 14 check in at 7:15 am [facility], will need x ray prior to MRI. Follow up on Jul 14 at 11:45 Bee Jackson 07/09/2018 10:57 documented in this encounter Plan of Treatment Upcoming Encounters Date Type Department Care Team (Late st Contact Info) Description 09/18/2024 11:00 EST Office Visit [facility] Bariatric Surgery - [place] [address] [place], [place] [address] Allen Thompson PA-C 111 [facility], Level 5 [place] [phone] 10/26/2024 10:45 EST Telemedicine [facility] Neurology - [address] [address] Sulema Nicole NP [address] [place] [address] Level 2 [place] [address] documented as of this encounter Visit Diagnoses Not on filedocumented in this encounter Care Teams Ladle Car Operator Relationship Specialty Start Date End Date Juma Herrera MD [address] [place] [address] PCP - General 09/25/12 12/07/18 documented as of this encounter
--- OUTSIDE RECORDS SUMMARY | 2024-09-17 09:13 | XMS_ITS | Encounter Summary ---
Author Organization [facility] Address [address] [place] [address] Care Team Providers Care News Anchor Name Role Phone Juma Herrera MD Primary Care Provider [phone] Reason for Visit * Reason Comments Obesity post op sleeve 6 wee ks Encounter Details Date Type Department Care Team (Latest Contact Info) Description 11/01/2015 12:30 EST Post-op Visit [facility] Bariatric Surgery [facility] [address] [place], [place] [phone] Master Ugarte MD [address] [place] [address] S/P laparoscopic sleeve gastrectomy (Primary [...] Assessment Author No 09/05/2015 12:00 Khoa Peñaloza documented as of this encounter Mental Status * Because of a physical, mental, or emotional condition, do you have serious difficulty concentrating, remembering, or making decisions? (5 years old or older) Answer Entry Date Author No 09/05/2015 12:00 Khoa Peñaloza documented in this encounter Progress Notes * Lux Dumont, RD - 11/01/2015 1739 EST Nutrition Post Op Visit: Gastric Sleeve [...] this encounter. 3. Seen and discussed with Staff Midwife at this visit. Master Ugarte MD 11/01/2015 13:09 documented in this encounter Plan of Treatment Upcoming Encounters Date Type Department Care Team (Late st Contact Info) Description 09/18/2024 11:00 EST Office Visit [facility] Bariatric Surgery - [place] [address] [place] [address] Allen Thompson PA-C 111 [facility] 5 [place] [address] 10/26/2024 10:45 EST Telemedicine [facility] Neurology - S [address] [phone] Sulema Nicole NP 1 [facility] 2 [place] [address] documented as of this encounter Visit Diagnoses Diagnosis S/P laparoscopic sleeve gastrectomy- Primary Bariatric surgery status documented in this encounter Care Teams News Anchor Relationship Specialty Start Date End Date Juma Herrera MD [address] [facility] [address] PCP - General 09/25/12 12/07/18 documented as of this encounter
--- OUTSIDE RECORDS SUMMARY | 2024-09-17 09:13 | XMS_ITS | Encounter Summary ---
Author Organization [facility] Address [address] [place] [address] Care Team Providers Care Dumper Operator Name Role Phone Juma Herrera MD Primary Care Provider Reason for Visit * Reason Comments Obesity POST OP SLEEVE 3 MON THS (09/05/15) Encounter Details Date Type Department Care Team (Late st Contact Info) Description 12/09/2015 11:30 EDT Office Visit [facility] Bariatric Surgery [facility] [address] [place], [place] [phone] Master Ugarte MD [address] [place] [address] S/P laparoscopic sleeve gastrectomy (Primary [...] 12:00 Khoa Peñaloza documented in this encounter Discharge Diagnoses Diagnosis Z98.84 Bariatric [...] STOP SMOKING NOW Seen and discussed with Analysis Specialist at this visit. Master Ugarte MD 12/09/2015 10:45 documented in this encounter Plan of Treatment Upcoming Encounters Date Type Department Care Team (Late st Contact Info) Description 09/18/2024 11:00 EST Office Visit [facility] Bariatric Surgery - [place] [address] [place], [place] [address] Allen Thompson PA-C 111 [facility] 5 [place] [phone] 10/26/2024 10:45 EST Telemedicine [facility] Neurology - [address] [place] [address] [place], [place] [address] Sulema Nicole NP 1 [facility] 2 [place] [address] documented as of this encounter Visit Diagnoses Diagnosis S/P laparoscopic sleeve gastrectomy- Primary Bariatric surgery status documented in this encounter Care Teams Dumper Operator Relationship Specialty Start Date End Date Juma Herrera MD [address] [facility] [place] [address] PCP - General 09/25/12 12/07/18 documented as of this encounter
--- OUTSIDE RECORDS SUMMARY | 2024-09-17 09:13 | XMS_ITS | Encounter Summary ---
Author Organization [facility] Address [address] [place] [address] Care Team Providers Care Conduit Worker Name Role Phone Juma Herrera MD Primary Care Provider [phone] Reason for Referral * Radiology Services (Routine) - New Request Specialty Diagnoses / Procedures Referred By Contac t Referred To Contact Diagnoses Bilateral low back pain, unspecified chronicity, with sciatica presence unspecified Procedures ENTIRE SPINE 2-3 VIEWS Starr Hart PA-C Referral ID Status Reason Start Date Expiration Date V isits Requested Visits Authorized [id number] New Request 06/10/2018 1 1 Encounter Details Date Type Department Care Team (Late st Contact Info) Description 06/09/2018 Orders Only [facility] Sports Medicine Program - [place] [address] Starr Hart PA-C Bilateral low back pain, [...] Answer Entry Date Author No 09/05/2015 12:00 NATALY Khoa Hernandez documented in this encounter Plan of Treatment Upcoming Encounters Date Type Department Care Team (Late st Contact Info) Description 09/18/2024 11:00 EST Office Visit [facility] Bariatric Surgery [facility] [address] [place] [address] lAlen Thompson, PALizettC 111 [facility], Level [address] [place] [phone] 10/26/2024 10:45 EST Telemedicine [facility] Neurology - [address] [place] [address] [place], [place] [address] Sulema Nicole NP [address] [place] [address] Level [address] [place] [address] documented as of this encounter Procedures Procedure [...] C6-C7 ACDF without evidence of hardware failure. us Starr Hart PA-C IMG DIAGNOSTIC IMAGING ORD ERABLES Final Result documented in this encounter Visit Diagnoses Diagnosis Bilateral low back pain, unspecified chronicity, with sciatica presence unspecified- Primary documented in this encounter Care Teams Conduit Worker Relationship Specialty Start Date End Date Juma Herrera MD [address] [facility] [place] [address] PCP - General 09/25/12 12/07/18 documented as of this encounter
--- OUTSIDE RECORDS SUMMARY | 2024-09-17 09:13 | XMS_ITS | Encounter Summary ---
Author Organization [facility] Address [address] [place] [address] Care Team Providers Care Operational Meteorologist Name Role Phone Juma Herrera MD Primary Care Provider [phone] Reason for Visit * Reason Onset Date Comments Appointment Related 06/09/2018 Encounter Details Date Type Department Care Team (Late st Contact Info) Description 06/09/2018 Telephone [facility] Sports Medicine Program - [address] [place] [address] Starr Hart PALizettC Appointment Related [...] 12:00 Khoa Peñaloza documented in this encounter Miscellaneous Notes * Telephone Encounter - Bee Jackson - 06/09/2018 4853 EDT I called zach with the date and time of her MRI Jul 14 check in 7:30 am [facility] follow with Starr Hart Jul 14 at 11:45 Bee Jackson 06/09/2018 14:38 documented in this encounter Plan of Treatment Upcoming Encounters Date Type Department Care Team (Late st Contact Info) Description 09/18/2024 11:00 EST Office Visit [facility] Bariatric Surgery - [place] [address] [place], [place] [address] Allen Thompson, PA-C 111 [facility], Level [address] [place] [phone] 10/26/2024 10:45 EST Telemedicine [facility] Neurology - [address] [address] Sulema Nicole NP [address] [place] [address] Level 2 [place] [address] documented as of this encounter Visit Diagnoses Not on filedocumented in this encounter Care Teams Operational Meteorologist Relationship Specialty Start Date End Date Juma Herrera MD [address] [facility] [place] [address] PCP - General 09/25/12 12/07/18 documented as of this encounter
--- OUTSIDE RECORDS SUMMARY | 2024-09-17 09:13 | XMS_ITS | Encounter Summary ---
Author Organization [facility] Address [address] [place] [address] Care Team Providers Care Curtain Supervisor Name Role Phone Juma Herrera MD Primary Care Provider [phone] Encounter Details Date Type Department Care Team (Late st Contact Info) Description 03/09/2016 Phlebotomy Only [address] [address] Surgical Garment Assembly Supervisor, Outpatient Morbid obesity, unspecified obesity type (CMS-HCC) ([facility]-CMS); S/P laparoscopic sleeve gastrectomy; Vitamin D deficiency [...] No 09/05/2015 12:00 NATALY Khoa Hernandez documented as of this encounter Mental Status * Because of a physical, mental, or emotional condition, do you have serious difficulty concentrating, remembering, or making decisions? (5 years old or older) Answer Entry Date Author No 09/05/2015 12:00 NATALY LazaroKhoa farias documented in this encounter Plan of Treatment Upcoming Encounters Date Type Department Care Team (Late st Contact Info) Description 09/18/2024 11:00 EST Office Visit [facility] Bariatric Surgery - [place] [address] [place], [place] [address] Allen Thompson PA-C [address] [place] [address], [facility] [address] [place] [phone] 10/26/2024 10:45 EST Telemedicine [facility] Neurology - [facility] [address] [place], [place] [id number] Sulema Nicole NP [address] [place] [address] [address] [place] [phone] documented as of this encounter Procedures Procedure Name Priority Date/Time Associated Diagnosis Comments THIAMIN (VITAMIN B1), WB Routine 03/09/2016 9:54 EDT Morbid obesity, unspecified obesity type ([facility]-H[facility]) ([facility]) S/P laparoscopic sleeve gastrectomy Vitamin D deficiency VITAMIN D (25,OH) Routine 03/09/2016 9:5 4 EDT Morbid obesity, unspecified obesity type ([facility]-HCC) ([facility]) S/P laparoscopic sleeve gastrectomy Vitamin D deficiency IRON Routine 03/09/2016 9:54 EDT Morbid obesity, unspecified obesity type ([facility]-HCC) ([facility]) S/P laparoscopic sleeve gastrectomy Vitamin D deficiency FERRITIN Routine 03/09/2016 9:54 EDT Morbid obesity, unspecified obesity type (CMS-HCC) (HCC-CMS) S/P laparoscopic sleeve gastrectomy Vitamin D deficiency documented in this encounter Results * THIAMIN (VITAMIN B1), WB (03/09/2016 9:54 EDT) Pathologist [facility] Thiamin (Vit B1), WB 117 70 - 180 nmol/L 03/13/2016 7:59 EDT [facility] Comment: Performed by: [facility], [address], [place] [address], Neurodiagnostic Technologist: Yoly Bhatt, Ph.D. Blood specimen (specimen) BLOOD SPECIMEN / Unknown 03/09/2016 9:54 EDT 03/09/2016 11:24 EDT Allen Thompson PA-C CHEMISTRY & BLOOD GA S ORDERABLES Final Result Performing Organization Address City/[facility] Co de Phone Number [facility] [address] [place] [address] * VITAMIN D (25,OH) (03/09/2016 9:54 EDT) [facility] 25OH Vitamin D Tot 31.5 30 - 100 ng/ml 03/09/2016 14:03 EDT [facility] Comment: Reference Range: Deficient = <10 ng/ml Insufficient = 10-30 ng/ml Sufficient = 30-100 ng/ml Toxic = >100 ng/ml Blood specimen (specimen) BLOOD SPECIMEN / Unknown 03/09/2016 9:54 EDT 03/09/2016 11:24 EDT us Allen Thompson PA-C CHEMISTRY & BLOOD GA S ORDERABLES Final Result Performing Organization Address [facility] Co de Phone Number [facility] [address] [place] [address] * IRON (03/09/2016 9:54 EDT) Pathologist [facility] Iron 69 37 - 170 ug/dl 03/09/2016 11:48 EDT [facility] Blood specimen (specimen) BLOOD SPECIMEN / Unknown 03/09/2016 9:54 EDT 03/09/2016 11:24 EDT us Allen Bennett-Dakotasy PA-C CHEMISTRY & BLOOD GA S ORDERABLES Final Result Performing Organization Address [facility] Co de Phone Number [facility] [address] [place] [address] * FERRITIN (03/09/2016 9:54 EDT) Ferritin 19 10 - 291 ng/ml 03/09/2016 12:42 EDT [facility] Blood specimen (specimen) BLOOD SPECIMEN / Unknown 03/09/2016 9:54 EDT 03/09/2016 11:24 EDT us Allen Thompson PA-C CHEMISTRY & BLOOD GA S ORDERABLES Final Result Performing Organization Address [facility] Co de Phone Number [facility] [address] [place] [address] documented in this encounter Visit Diagnoses Diagnosis Morbid obesity, unspecified obesity type ([facility]-CMS) S/P laparoscopic sleeve gastrectomy Bariatric surgery status Vitamin D deficiency Unspecified vitamin D deficiency documented in this encounter Care Teams Curtain Supervisor Relationship Specialty Start Date End Date Juma Herrera MD [address] [facility] [place] [address] PCP - General 09/25/12 12/07/18 documented as of this encounter
--- OUTSIDE RECORDS SUMMARY | 2024-09-17 09:13 | XMS_ITS | Encounter Summary ---
Author Organization [facility] Address [address] [place] [address] Care Team Providers Care Soil Expert Name Role Phone Alejandra Trevino MD Primary Care Provider [phone] Encounter Details Date Type Department Care Team (Late st Contact Info) Description 11/22/2016 Results Only [facility] [phone] Dariela Stiles MD [address] [place] [address] [place] [address] Social History Tobacco Use Types Packs/Day Years [...] EST Khoa Hernandez documented in this encounter Plan of Treatment Upcoming Encounters Date Type Department Care Team (Late st Contact Info) Description 09/18/2024 11:00 EST Office Visit [facility] Bariatric Surgery - [place] [address] [place], [place] [phone] Allen Thompson PA-C [address] [place] [address] [address] [place] [address] 10/26/2024 10:45 EST Telemedicine [facility] Neurology - [address] [address] Sulema Nicole NP [address] [place] [address] [address] [place] [phone] documented as of this encounter Procedures Procedure [...] ? TIA HITCHCOCK ? Accession #: ? [id number] ? : ? 1975 (Age: 41) ??F [...] present. Additional tubal segments are not identified. Church Business Administrator sections are submitted as follows: BLOCK LOUIE A1- ??anterior cervix A2- ??anterior [...] an intact wall with a pinpoint lumen. Church Business Administrator sections are submitted, to include the entire distal end and one cross section, in B1 and B2. MARGARITA Nixon (ASCP) 11/23/2016 11:43 AM End of Report [facility] 11/22/2016 21:3 0 EDT 11/22/2016 21:30 EDT us Dariela Stiles MD PATHOLOGY ORDERABLES Final Resu lt [facility] [address] [place] [address] documented in this encounter Visit Diagnoses Not on filedocumented in this encounter Care Teams Soil Expert Relationship Specialty Start Date End Date Alejandra Trevino MD [address] [place] [phone] PCP - General 09/25/12 12/07/18 documented as of this encounter
--- OUTSIDE RECORDS SUMMARY | 2024-09-17 09:13 | XMS_ITS | Encounter Summary ---
Author Organization [facility] Address [address] [place] [address] Care Team Providers Care Press Operator Name Role Phone Juma Herrera MD Primary Care Provider [phone] Reason for Referral * Laboratory Services (Routine) - Closed Specialty Diagnoses / Procedures Referred By Contac t Referred To Contact Diagnoses Morbid obesity due to excess calories (HCC-CMS) S/P laparoscopic sleeve gastrectomy Post-resection malabsorption Vitamin D deficiency Procedures VITAMIN D (25,OH) Mary Rosales RN Referral ID Status Reason Start Date Expiration Date Visits Re quested Visits Authorized [id number] Closed 12/09/2015 1 1 * Laboratory Services (Routine) - Closed Specialty Diagnoses / Procedures Referred By Contac t Referred To Contact Diagnoses Morbid obesity due to excess calories (HCC-CMS) S/P laparoscopic sleeve gastrectomy Post-resection malabsorption Procedures IRON Mary Rosales RN Referral ID Status Reason Start Date Expiration Date Visits Re quested Visits Authorized [id number] Closed 12/09/2015 1 1 * Laboratory Services (Routine) - Closed Specialty Diagnoses / Procedures Referred By Contac t Referred To Contact Diagnoses Morbid obesity due to excess calories (HCC-CMS) S/P laparoscopic sleeve gastrectomy Post-resection malabsorption Procedures PTH INTACT Mary Rosales RN Referral ID Status Reason Start Date Expiration Date Visits Re quested Visits Authorized [id number] Closed 12/09/2015 1 1 * Laboratory Services (Routine) - Closed Specialty Diagnoses / Procedures Referred By Contac t Referred To Contact Diagnoses Morbid obesity due to excess calories (HCC-CMS) S/P laparoscopic sleeve gastrectomy Post-resection malabsorption Procedures VITAMIN B12 Mary Rosales RN Referral ID Status Reason Start Date Expiration Date Visits Re quested Visits Authorized [id number] Closed 12/09/2015 1 1 * Laboratory Services (Routine) - Closed Specialty Diagnoses / Procedures Referred By Contac t Referred To Contact Diagnoses Morbid obesity due to excess calories (HCC-CMS) S/P laparoscopic sleeve gastrectomy Post-resection malabsorption Procedures CALCIUM Mary Rosales RN Referral ID Status Reason Start Date Expiration Date Visits Re quested Visits Authorized [id number] Closed 12/09/2015 1 1 * Laboratory Services (Routine) - Closed Specialty Diagnoses / Procedures Referred By Contac t Referred To Contact Diagnoses Morbid obesity due to excess calories (HCC-CMS) S/P laparoscopic sleeve gastrectomy Post-resection malabsorption Procedures Mary Robles RN Referral ID Status Reason Start Date Expiration Date Visits Re quested Visits Authorized [id number] Closed 12/09/2015 1 1 * Laboratory Services (Routine) - Closed Specialty Diagnoses / Procedures Referred By Contac t Referred To Contact Diagnoses Morbid obesity due to excess calories (HCC-CMS) S/P laparoscopic sleeve gastrectomy Post-resection malabsorption Procedures HEMAGRAM Mary Rosales RN Referral ID Status Reason Start Date Expiration Date Visits Re quested Visits Authorized [id number] Closed 12/09/2015 1 1 * Laboratory Services (Routine) - Closed Specialty Diagnoses / Procedures Referred By Contac t Referred To Contact Diagnoses Morbid obesity due to excess calories (HCC-CMS) S/P laparoscopic sleeve gastrectomy Post-resection malabsorption Procedures Mary Sawant RN Referral ID Status Reason Start Date Expiration Date Visits Re quested Visits Authorized [id number] Closed 12/09/2015 1 1 * Laboratory Services (Routine) - Closed Specialty Diagnoses / Procedures Referred By Wili t Referred To Contact Diagnoses Morbid obesity due to excess calories (HCC-CMS) S/P laparoscopic sleeve gastrectomy Post-resection malabsorption Procedures THIAMIN (VITAMIN B1), WB Mary Rosales RN Referral ID Status Reason Start Date Expiration Date Visits Re quested Visits Authorized [id number] Closed 12/09/2015 1 1 Encounter Details Date Type Department Care Team (Late st Contact Info) Description 11/08/2015 Orders Only [facility] Bariatric Surgery [place] [address] [place] [address] Mary Rosales RN Morbid obesity due to excess calories (CMS-HCC) (HCC-CMS) (Primary Dx); S/P laparoscopic sleeve gastrectomy; Post-resection [...] in this encounter Progress Notes * Mary Rosales, RN - 11/08/2015 1333 EST Patient is s/p gastric sleeve and needs post-op labs drawn prior to apt in 6 weeks. Labs ordered per Bariatric lab protocol. Lab slip given to patient. Electronically signed by Mary Rosales RN, CBN documented in this encounter Plan of Treatment Upcoming Encounters Date Type Department Care Team (Late st Contact Info) Description 09/18/2024 11:00 EST Office Visit [facility] Bariatric Surgery - [place] [address] [place] [address] Allen Thompson PA-C [address] [facility], [address] [place] [address] 10/26/2024 10:45 EST Telemedicine [facility] Neurology - [address] [phone] Sulema Nicole NP [address] [place] [address], [address] [place] [phone] documented as of this encounter Results * (ABNORMAL) VITAMIN D (25,OH) (11/23/2015) 25OH Vitamin D Tot, External 25.2(A) 30 - 100 [facility] Blood specimen (specimen) 11/23/2015 us Allen A Chutter-Cressy PA-C CHEMISTRY & BLOOD GA S ORDERABLES Final Result [facility] * IRON (11/23/2015) Iron, External 82 [facility] Blood specimen (specimen) 11/23/2015 us Allen A Calitter-Cressy PA-C CHEMISTRY & BLOOD GA S ORDERABLES Final Result [facility] * PTH INTACT (11/23/2015) PTH, External 23 [facility] Blood specimen (specimen) 11/23/2015 us Allen Ziggy Lopezer-Dakotasy PA-C CHEMISTRY & BLOOD GA S ORDERABLES Final Result [facility] * VITAMIN B12 (11/23/2015) Vitamin B-12, External 653 [facility] Blood specimen (specimen) 11/23/2015 us Allen Ziggy Lopezer-Dakotasy PA-C CHEMISTRY & BLOOD GA S ORDERABLES Final Result [facility] * CALCIUM (11/23/2015) Calcium, External 9.3 [facility] Calculated Calcium, External [facility] Blood specimen (specimen) 11/23/2015 us Allen Ziggy Calitter-Cressy PA-C CHEMISTRY & BLOOD GA S ORDERABLES Final Result [facility] * FERRITIN (11/23/2015) Ferritin, External 27 [facility] Blood specimen (specimen) 11/23/2015 us Allen Thompson PA-C CHEMISTRY & BLOOD GA S ORDERABLES Final Result [facility] * HEMAGRAM (11/23/2015) HCT, External 43.1 [facility] MCH, External 30.3 [facility] MCV, External 88.3 [facility] MCHC, External 34.3 [facility] Hemoglobin, External 14.8 [facility] WBC, External 7.63 [facility] RBC, External 4.88 [facility] PLT, External 306 [facility] RDW-CV, External 15.1 [facility] Blood specimen (specimen) 11/23/2015 us Allen AVILA-C HEMATOLOGY & PF4 ORD ERABLES Final Result [facility] * CREATININE (11/23/2015) Creatinine, External 0.6 [facility] GFR, Calculated, External [facility] Blood specimen (specimen) 11/23/2015 us Allen AVILA-C CHEMISTRY & BLOOD GA S ORDERABLES Final Result [facility] * THIAMIN (VITAMIN B1), WB (11/23/2015) Thiamine, External 106 [facility] Comment, External [facility] Blood specimen (specimen) 11/23/2015 us Allen Thompson PA-C CHEMISTRY & BLOOD GA S ORDERABLES Final Result [facility] documented in this encounter Visit Diagnoses Diagnosis Morbid obesity due to excess calories ([facility])- Primary S/P laparoscopic sleeve gastrectomy Bariatric surgery status Post-resection malabsorption Other and unspecified postsurgical nonabsorption Vitamin D deficiency Unspecified vitamin D deficiency documented in this encounter Care Teams Press Operator Relationship Specialty Start Date End Date Juma Herrera MD [address] [facility] [place] [phone] PCP - General 09/25/12 12/07/18 documented as of this encounter
--- OUTSIDE RECORDS SUMMARY | 2024-09-17 09:13 | XMS_ITS | Encounter Summary ---
Author Organization [facility] Address [address] [place] [address] Care Team Providers Care Cooling Pipe Inspector Name Role Phone Juma Herrera MD Primary Care Provider [phone] Reason for Referral * Laboratory Services (Routine) - Closed Specialty Diagnoses / Procedures Referred By Contac t Referred To Contact Diagnoses Morbid obesity, unspecified obesity type (HCC-CMS) S/P laparoscopic sleeve gastrectomy Procedures VITAMIN D (25,OH) Allen Thompson PA-C Phone: tel: fax: Referral ID Status Reason Start Date Expiration Date Visits Re quested Visits Authorized [id number] Closed 08/26/2016 1 1 * Laboratory Services (Routine) - Closed Specialty Diagnoses / Procedures Referred By Contac t Referred To Contact Diagnoses Morbid obesity, unspecified obesity type (HCC-CMS) S/P laparoscopic sleeve gastrectomy Procedures THIAMIN (VITAMIN B1), WB Allen Thompson PA-C Phone: tel: fax: Referral ID Status Reason Start Date Expiration Date Visits Re quested Visits Authorized [id number] Closed 08/26/2016 1 1 * Laboratory Services (Routine) - Closed Specialty Diagnoses / Procedures Referred By Contac t Referred To Contact Diagnoses Morbid obesity, unspecified obesity type (HCC-CMS) S/P laparoscopic sleeve gastrectomy Procedures PTH INTACT Allen Thompson PA-C Phone: tel: fax: Referral ID Status Reason Start Date Expiration Date Visits Re quested Visits Authorized [id number] Closed 08/26/2016 1 1 * Laboratory Services (Routine) - Closed Specialty Diagnoses / Procedures Referred By Contac t Referred To Contact Diagnoses Morbid obesity, unspecified obesity type (HCC-CMS) S/P laparoscopic sleeve gastrectomy Procedures IRON Allen Thompson PA-C Phone: tel: fax: Referral ID Status Reason Start Date Expiration Date Visits Re quested Visits Authorized [id number] Closed 08/26/2016 1 1 * Laboratory Services (Routine) - Closed Specialty Diagnoses / Procedures Referred By Contac t Referred To Contact Diagnoses Morbid obesity, unspecified obesity type (HCC-CMS) S/P laparoscopic sleeve gastrectomy Procedures FERRITIN Allen Thompson PA-C Phone: tel: fax: Referral ID Status Reason Start Date Expiration Date Visits Re quested Visits Authorized [id number] Closed 08/26/2016 1 1 * Laboratory Services (Routine) - Closed Specialty Diagnoses / Procedures Referred By Contac t Referred To Contact Diagnoses Morbid obesity, unspecified obesity type (HCC-CMS) S/P laparoscopic sleeve gastrectomy Procedures CREATININE Allen Thompson PA-C Phone: tel: fax: Referral ID Status Reason Start Date Expiration Date Visits Re quested Visits Authorized [id number] Closed 08/26/2016 1 1 * Laboratory Services (Routine) - Closed Specialty Diagnoses / Procedures Referred By Contac t Referred To Contact Diagnoses Morbid obesity, unspecified obesity type (HCC-CMS) S/P laparoscopic sleeve gastrectomy Procedures HEMAGRAM Allen Thompson PA-C Phone: tel: fax: Referral ID Status Reason Start Date Expiration Date Visits Re quested Visits Authorized [id number] Closed 08/26/2016 1 1 * Laboratory Services (Routine) - Closed Specialty Diagnoses / Procedures Referred By Contac t Referred To Contact Diagnoses Morbid obesity, unspecified obesity type (HCC-CMS) S/P laparoscopic sleeve gastrectomy Procedures Allen Fish PA-C Phone: tel: fax: Referral ID Status Reason Start Date Expiration Date Visits Re quested Visits Authorized [id number] Closed 08/26/2016 1 1 * Laboratory Services (Routine) - Closed Specialty Diagnoses / Procedures Referred By Contac t Referred To Contact Diagnoses Morbid obesity, unspecified obesity type (HCC-CMS) S/P laparoscopic sleeve gastrectomy Procedures VITAMIN B12 Allen Thompson PA-C Phone: tel: fax: Referral ID Status Reason Start Date Expiration Date Visits Re quested Visits Authorized [id number] Closed 08/26/2016 1 1 Reason for Visit * Reason Comments Obesity POST OP SLEEVE 6 MON THS (09/05/15) Encounter Details Date Type Department Care Team (Late st Contact Info) Description 03/09/2016 9:30 EDT Office Visit [facility] Bariatric Surgery [place] [address] [place] [address] Allen Thompson PA-C [address] [facility], [address] [place] [address] Morbid obesity, unspecified obesity type [...] NATALY Khoa Hernandez documented in this encounter Progress Notes * AnthonygemLuxu, RD - 03/09/2016 0943 EDT Nutrition Post Op Visit: Gastric Sleeve Subjective: Patient returns to clinic for post op nutritional counseling following bariatric surgery ~ 6 months ago. Questionnaire Reviewed: Yes Intolerance Episodes: yes dumping with sweets Food Intolerances: Sweets, avoids rice Current Exercise:Contents First exercise DVD 30 min X 2 per [...] labs * Allen Thompson PA - 03/09/2016 4093 EDT 03/09/2016 Tia Spain is here in [...] in 6 months Seen and discussed with Landscape Maintenance Internship at this visit. MARGARITA Gomez 03/09/2016 9:50 documented in this encounter Plan of Treatment Upcoming Encounters Date Type Department Care Team (Late st Contact Info) Description 09/18/2024 11:00 EST Office Visit [facility] Bariatric Surgery - [place] [address] [place] [address] Allen Thompson, ELISABETH [address] [facility], [address] [place] [phone] 10/26/2024 10:45 EST Telemedicine [facility] Neurology - [address] [place] [address] [place] [address] Sulema Nicole NP 1 [facility] 2 [place] [address] documented as of this encounter Results * (ABNORMAL) VITAMIN D (25,OH) (09/17/2016) 25OH Vitamin D Tot, External 21.9(A) 30 - 100 [facility] Blood specimen (specimen) 09/17/2016 us Allen Thompson PA-C CHEMISTRY & BLOOD GA S ORDERABLES Final Result [facility] * THIAMIN (VITAMIN B1), WB (09/17/2016) Thiamine, External 106 [facility] Comment, External [facility] Blood specimen (specimen) 09/17/2016 us Allen Thompson PA-C CHEMISTRY & BLOOD GA S ORDERABLES Final Result [facility] * PTH INTACT (09/17/2016) PTH, External 51 [facility] Blood specimen (specimen) 09/17/2016 us Allen A Calitter-Cressy PA-C CHEMISTRY & BLOOD GA S ORDERABLES Final Result [facility] * IRON (09/17/2016) Iron, External 100 [facility] Blood specimen (specimen) 09/17/2016 us Allen Leivatter-Cressy PA-C CHEMISTRY & BLOOD GA S ORDERABLES Final Result [facility] * FERRITIN (09/17/2016) Ferritin, External 10 [facility] Blood specimen (specimen) 09/17/2016 us Allen Leivatter-Cressy PA-C CHEMISTRY & BLOOD GA S ORDERABLES Final Result [facility] * CREATININE (09/17/2016) Creatinine, External 0.74 [facility] GFR, Calculated, External [facility] Blood specimen (specimen) 09/17/2016 us Allen Leivatter-Cressy PA-C CHEMISTRY & BLOOD GA S ORDERABLES Final Result [facility] * HEMAGRAM (09/17/2016) HCT, External 39.1 [facility] MCH, External 28.8 [facility] MCV, External 88.1 [facility] MCHC, External 32.7 [facility] Hemoglobin, External 12.8 [facility] WBC, External 6.07 [facility] RBC, External 4.44 [facility] PLT, External 342 [facility] RDW-CV, External 14.3 [facility] Blood specimen (specimen) 09/17/2016 us Allen Thompson PA-C HEMATOLOGY & PF4 ORD ERABLES Final Result [facility] * CALCIUM (09/17/2016) Calcium, External 8.6 [facility] Calculated Calcium, External [facility] Blood specimen (specimen) 09/17/2016 Allen Thompson PA-C CHEMISTRY & BLOOD GA S ORDERABLES Final Result [facility] * VITAMIN B12 (09/17/2016) Vitamin B-12, External 392 [facility] Blood specimen (specimen) 09/17/2016 Allen Thompson PA-C CHEMISTRY & BLOOD GA S ORDERABLES Final Result [facility] * THIAMIN (VITAMIN B1), WB (03/09/2016 9:54 EDT) Thiamin (Vit B1), WB 117 70 - 180 nmol/L 03/13/2016 7:59 EDT [facility] Comment: Performed by: [employer], [address], [place] [address], Bee Farmer: Yoly Bhatt, Ph.D. Blood specimen (specimen) BLOOD SPECIMEN / Unknown 03/09/2016 9:54 EDT 03/09/2016 11:24 EDT us Allen AVILA-Khushbu CHEMISTRY & BLOOD GA S ORDERABLES Final Result Performing Organization Address City/[facility]/ZIP Co de Phone Number [facility] [address] [place] [address] * VITAMIN D (25,OH) (03/09/2016 9:54 EDT) 25OH Vitamin D Tot 31.5 30 - 100 ng/ml 03/09/2016 14:03 EDT [facility] Comment: Reference Range: Deficient = <10 ng/ml Insufficient = 10-30 ng/ml Sufficient = 30-100 ng/ml Toxic = >100 ng/ml Blood specimen (specimen) BLOOD SPECIMEN / Unknown 03/09/2016 9:54 EDT 03/09/2016 11:24 EDT us Allen AVILA-C CHEMISTRY & BLOOD GA S ORDERABLES Final Result Performing Organization Address [facility]/ZIP Co de Phone Number [facility] [address] [place] [address] * IRON (03/09/2016 9:54 EDT) Iron 69 37 - 170 ug/dl 03/09/2016 11:48 EDT [facility] Blood specimen (specimen) BLOOD SPECIMEN / Unknown 03/09/2016 9:54 EDT 03/09/2016 11:24 EDT us Allen AVILA-Khushbu CHEMISTRY & BLOOD GA S ORDERABLES Final Result [facility] [address] [place] [address] * FERRITIN (03/09/2016 9:54 EDT) Ferritin 19 10 - 291 ng/ml 03/09/2016 12:42 EDT [facility] Blood specimen (specimen) BLOOD SPECIMEN / Unknown 03/09/2016 9:54 EDT 03/09/2016 11:24 EDT us Allen Thompson PA-C CHEMISTRY & BLOOD GA S ORDERABLES Final Result [facility] [address] [place] [address] documented in this encounter Visit Diagnoses Diagnosis Morbid obesity, unspecified obesity type ([facility])- Primary S/P laparoscopic sleeve gastrectomy Bariatric surgery status Vitamin D deficiency Unspecified vitamin D deficiency documented in this encounter Care Teams Cooling Pipe Inspector Relationship Specialty Start Date End Date Juma Herrera MD [address] [place] [phone] PCP - General 09/25/12 12/07/18 documented as of this encounter
--- OUTSIDE RECORDS SUMMARY | 2024-09-17 09:13 | XMS_ITS | Encounter Summary ---
Author Organization [facility] Address [address] [place] [address] Care Team Providers Care Retail Office Associate Name Role Phone Juma Herrera MD Primary Care Provider Reason for Visit * Reason Comments Shoulder Pain right * Consult, Test and Treat (Routine) - Closed Specialty Diagnoses / Procedures Referred By Wili mireles Referred To Contact Orthopedic Surgery Diagnoses Pain in right shoulder Juma Herrera MD Phone: tel: fax: [facility] Sports Medicine Program [place] [address] [place] [address] Phone: tel: fax: Referral ID Status Reason Start Date Expiration Date Visits Re quested Visits Authorized [id number] Closed 1 1 Encounter Details Date Type Department Care Team (Late st Contact Info) Description 05/20/2018 10:30 EDT Office Visit [facility] Sports Medicine Program [place] [address] [place] [address] Starr Hart PA-C Neck pain [...] documented in this encounter Discharge Diagnoses Diagnosis M19.011 Primary osteoarthritis, right shoulder-M19.011[ICD-10-CM] M54.2 Cervicalgia-M54.2[ICD-10-CM] documented in this encounter Discharge Disposition Disposition Code Departure Means Destination Auto Discharge documented in this encounter Progress Notes * Bee Jackson - 05/20/2018 1030 EDT Right USG SA Injection Bupivacaine 0.5% 10 mL Med lot [id number]: [facility] number: [id number] Exp date:01/20 Accounts Payable Payroll Coordinator: [employer] Drug waste: 10 mL vial, used 3 mL, wasted 7 mL KENALOG 40 mg/mL Med lot number:[id number] [facility] number:[id number] Exp date:02/18 Accounts Payable Payroll Coordinator: [employer] Drug waste:5 mL vial, used 2 mL, wasted 3 mL LIDOCAINE 2 % 20 mL Med lot number:[id number] NDC number:[id number] Exp date: 02/21 Accounts Payable Payroll Coordinator: [employer] Drug waste: 20 mL vial, [...] obesity with BMI of 45.0-49.9, adult ([facility]) 03/10/2015 ??? Cervicalgia 09/29/2012 ??? Idiopathic peripheral neuropathy 03/20/2012 ??? Tarsal tunnel syndrome of right side 08/02/2011 ??? 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 Lumbar radiculopathy 10/03/2006 Class: Permanent Past Medical History: Diagnosis Date ??? Anxiety ??? Arthritis ??? Back pain ??? Bipolar disorder ([facility]) ??? Breathing problem ??? Depression ??? Diabetes mellitus ([facility]) ??? Drug abuse ??? Eye problem ??? [...] can, resisted external rotation, belly press. Positive Luzerne's, Speed's. Negative Yergason's. There is palpable tenderness [...] 4 to 5 right intrinsics. Full strength electrical software engineer strength. Radiographs of the shoulder obtained 05/20/2018 [...] Description 09/18/2024 11:00 EST Office Visit [facility] Bariatric Surgery - [place] [address] [place] [address] Allen Thompson PA-C 111 [facility], [address] [place] [address] 10/26/2024 10:45 EST Telemedicine [facility] Neurology - [address] [phone] Sulema Nicole NP [address] [place] [address] 2 [place] [phone] documented as of this encounter Visit Diagnoses Diagnosis Neck pain- Primary Cervicalgia Chronic right shoulder pain Pain in joint, shoulder region documented in this encounter Care Teams Retail Office Associate Relationship Specialty Start Date End Date Juma Herrera MD [address] [facility] [place] [address] PCP - General 09/25/12 12/07/18 documented as of this encounter
--- OUTSIDE RECORDS SUMMARY | 2024-09-17 09:13 | XMS_ITS | Encounter Summary ---
Author Organization [facility] Address [address] [place] [address] Care Team Providers Care Information Clerk Cashier Name Role Phone Juma Herrera MD Primary Care Provider [phone] Encounter Details Date Type Department Care Team (Latest Contact Info) Description 07/14/2018 7:10 EST - 07/14/2018 23:59 EST Hospital Encounter [address] [address] Starr Hart, PALizettC Discharge Disposition: Auto Discharge [...] documented in this encounter Discharge Diagnoses Diagnosis M75.101 Unsp rotatr-cuff tear/ruptr of right shoulder, not trauma-M75.101[ICD-10-CM] M75.81 Other shoulder lesions, right shoulder-M75.81[ICD-10-CM] M19.011 Primary osteoarthritis, right shoulder-M19.011[ICD-10-CM] 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-M99.51[ICD-10-CM] M48.02 Spinal stenosis, cervical region-M48.02[ICD-10-CM] Z98.1 Arthrodesis status-Z98.1[ICD-10-CM] M54.9 Dorsalgia, unspecified-M54.9[ICD-10-CM] documented in this encounter Medications at Time of Discharge duloxetine (CYMBALTA) 30 mg capsule Take 3 [...] daily Hold for 2 weeks 09/07/2015 2 PROPRANOLOL HCL (PROPRANOLOL ORAL)Indications:m igraine Take 120 mg by mouth daily 9 rizatriptan (MAXALT) 10 mg tablet Take 10 [...] [facility] [place] [address] [place] [address] Allen Thompson, PA-C 111 [facility] 5 [place] [phone] 10/26/2024 10:45 EST Telemedicine [facility] Neurology - [address] [address] Sulema Nicole NP [address] [place] [address] 2 [place] [phone] documented as of this encounter Visit Diagnoses Not on filedocumented in this encounter Care Teams Information Clerk Cashier Relationship Specialty Start Date End Date Juma Herrera MD [address] [place] [place] [phone] PCP - General 09/25/12 12/07/18 documented as of this encounter
--- OUTSIDE RECORDS SUMMARY | 2024-09-17 09:13 | XMS_ITS | Encounter Summary ---
Author Organization [facility] Address [address] [place] [address] Care Team Providers Care Industrial Gas Production Operator Name Role Phone Juma Herrera MD Primary Care Provider [phone] Reason for Visit * Reason Comments Obesity POST OP SLEEVE 1 RORYZiggy Hernandez (09/05/15) Encounter Details Date Type Department Care Team (Late st Contact Info) Description 09/28/2016 10:30 EST Office Visit [facility] Bariatric Surgery [facility] [address] [place] [address] Allen Thompson, PALizettC 111 [facility], [address] [place] [address] Morbid obesity, unspecified obesity type [...] before next visit. Seen and discussed with Book Reviewer at this visit. MARGARITA Gomez 09/28/2016 11:41 [...] [facility] - [place] [address] [place] [address] Allen Thompson PA-C 111 [facility] Level [address] [place] [address] 10/26/2024 10:45 EST Telemedicine [facility] Neurology - [address] [place] 1 [place] [address] Sulema Nicole, GIULIA 1 [facility] 2 [place] [phone] documented as of this encounter Visit Diagnoses [...] may reflect changes made after this encounter. methylphenidate (RITALIN;METHYLIN ) 5 mg tablet Take 2 Tablets by mouth 2 times daily. added in this encounter Care Teams Industrial Gas Production Operator Relationship Specialty Start Date End Date Juma Herrera MD [address] [facility] [place] [phone] PCP - General 09/25/12 12/07/18 documented as of this encounter
--- OUTSIDE RECORDS SUMMARY | 2024-09-17 09:13 | XMS_ITS | Encounter Summary ---
Author Organization [facility] Address [address] [place] [address] Care Team Providers Care Certified Medication Aide Name Role Phone Juma Herrera MD Primary Care Provider [phone] Reason for Visit * Reason Comments Post-op Problem Patient arrives via car. Patient had gastric sleeve surgery on September 05. Patient noticed yesterday there was decreased drainage in MELANIE drain and today there is no drainage. There is drainage around the tube. Encounter Details Date Type Department Care Team (Late st Contact Info) Description 09/11/2015 9:17 EST - 09/11/2015 11:41 EST Emergency [facility] Emergency Department - Main [address] [phone] Rishabh Denton MD PA-C [address] [place] [phone] Kj Urbina MD 111 [facility], Level 1 [place] [address] Emergency, MD MELANIE Garcia drain, broken, [...] EST Khoa Hernandez documented in this encounter Discharge Instructions * [...] mL by mouth every 4 hours 09/07/2015 8 LORazepam (ATIVAN) 0.5 mg tablet Take 0.5 [...] form Daily Max: 60 mg 09/07/2015 2 oxyCODONE (ROXICODONE) 5 mg/5 mL solution Take 5-10 mL by mouth every 4 hours as needed for Pain Daily Max: 60 mg 700 mL 0 09/07/2015 7 oxyCODONE (ROXICODONE) 5 mg/5 mL solution Take 5-10 mL by mouth every 4 hours as needed for Pain starting after surgery on 09/05/14 Daily Max: 60 mg 150 mL 0 08/19/2015 8 pediatric multivitamin (JUAN CHEW VIT) chewable tablet Take 1 Tab by mouth daily Hold for 2 weeks 09/07/2015 2 PROPRANOLOL HCL (PROPRANOLOL ORAL)Indications:m igraine Take 120 mg by mouth daily 9 rizatriptan (MAXALT) 10 mg tablet Take 10 mg by mouth once as needed. May repeat in 2 hours if needed 2 documented as of this encounter Discharge Disposition [...] rhythm per pulse. Abdomen: Soft, nontender, nondistended. Stroud in place from surgery. Incisions clean, dry, [...] AM / Raymundo Rahman MD ln Confirmation: [id number] Dictation ID: [id number] cc: Ulices Long MD FACS documented in [...] today with Post-op Problem HPI Comments: IManisha, am scribing for Rishabh Denton, PA;H* while he/she is personally performing the service. Manisha Perry 09/11/2015 9:31 Tiapoppy Spain is a 40 y.o. female with [...] distension. Obese. Four surgical scars with intact yfn no infection. MELANIE in right upper quadrant. [...] surgical scars on the abdomen with intact yfn and no sign of infection. Wound actively [...] the Emergency Department: Improved PCP: Juma Herrera [facility] This documentation is recorded by Manisha Perry [...] Visit [facility] Bariatric Surgery - [place] [address] [place] [address] Allen Thompson PA-C 111 [facility], Level [address] [place] [phone] 10/26/2024 10:45 EST Telemedicine [facility] Neurology - [address] [address] Sulema Nicole, GIULIA 1 [facility] Level 2 [place] [phone] documented as of this encounter Visit Diagnoses Diagnosis MELANIE drain, broken, initial encounter- Primary documented in this encounter Care Teams Certified Medication Aide Relationship Specialty Start Date End Date Juma Herrera MD [address] [facility] [place] [phone] PCP - General 09/25/12 12/07/18 documented as of this encounter
--- OUTSIDE RECORDS SUMMARY | 2024-09-17 09:13 | XMS_ITS | Encounter Summary ---
Author Organization [facility] Address [address] [place] [address] Care Team Providers Care Program Architect Name Role Phone Juma Herrera MD Primary Care Provider [phone] Encounter Details Date Type Department Care Team (Late st Contact Info) Description 07/09/2018 Orders Only [facility] Sports Medicine Program - [place] [address] Starr Hart PA-C Social History [...] Info) Description 09/18/2024 11:00 EST Office Visit [facility] Bariatric Surgery - [place] [address] [place], [place] [address] Allen Thompson, PA-C [address] [place] [address] 5 [place] [phone] 10/26/2024 10:45 EST Telemedicine [facility] Neurology - [address] [place] [address] [place], [place] [phone] Sulema Nicole NP 1 [facility] 2 [place] [address] documented as of this encounter Visit Diagnoses Not on filedocumented in this encounter Care Teams Program Architect Relationship Specialty Start Date End Date Juma Herrera MD [address] [facility] [place] [phone] PCP - General 09/25/12 12/07/18 documented as of this encounter
--- OUTSIDE RECORDS SUMMARY | 2024-09-17 09:13 | XMS_ITS | Encounter Summary ---
Author Organization [facility] Address [address] [place] [address] Care Team Providers Care Monitoring Analyst Name Role Phone Alejandra Trevino MD Primary Care Provider [phone] Encounter Details Date Type Department Care Team (Late st Contact Info) Description 2016 Results Only [facility]- [facility]ISM [phone] Dariela Stiles MD [address] [place] [address] [place] [address] Social History Tobacco Use Types Packs/Day Years [...] Info) Description 09/18/2024 11:00 EST Office Visit [facility] Bariatric Surgery - [place] [address] [place], [place] [phone] Allen Thompson PA-C [address] [place] [address] 5 [place] [phone] 10/26/2024 10:45 EST Telemedicine [facility] Neurology - [address] [phone] Sulema Nicole NP [address] [place] [address] 2 [place] [phone] documented as of this encounter Procedures Procedure [...] ? TIA HITCHCOCK ? Accession #: ? [id number] ? : ? 1975 (Age: 41) ??F [...] types 16,18,31,33,35, 39,45,51,52,56,58, 59,66, and 68 by machine stripper mediated amplification. Comments Document reviewed and electronically signed by: ? System Interface ? Report date: 06/18/2016 By the signature above, the attending physician certifies that he/she has personally conducted a gross and/or microscopic examination of the described specimens and rendered or confirmed the above diagnosis. End of Report [facility] 2016 06/13/2016 us Dariela Stiles MD PATHOLOGY ORDERABLES Final Resu lt [facility] [address] [place] [address] documented in this encounter Visit Diagnoses Not on filedocumented in this encounter Care Teams Monitoring Analyst Relationship Specialty Start Date End Date Alejandra Trevino MD [address] [facility] [place] [phone] PCP - General 09/25/12 12/07/18 documented as of this encounter
--- OUTSIDE RECORDS SUMMARY | 2024-09-17 09:13 | XMS_ITS | Encounter Summary ---
Author Organization [facility] Address [address] [place] [address] Care Team Providers Care Activity Specialist Name Role Phone Juma Herrera MD Primary Care Provider [phone] Reason for Visit * Reason Onset Date Comments Paperwork request 05/11/2016 Needs all her appiointments and medicaitons sent to her for her disability claim, Encounter Details Date Type Department Care Team (Late st Contact Info) Description 05/11/2016 Telephone [facility] Bariatric Surgery - [place] [address] [place] [address] Master Ugrate MD [address] [place] [phone] Paperwork request (Needs all her appiointments [...] Telephone Encounter - Mary Rosales RN - 05/14/2016 0845 EDT LMOVM stating that patient needs to call HIM for records request. If the [facility] sends us information regarding her disability claim asking for medical records, then we would send it directly to them. Electronically signed by Mary Rosales RN CBN documented in this encounter Plan of Treatment Upcoming Encounters Date Type Department Care Team (Late st Contact Info) Description 09/18/2024 11:00 EST Office Visit [facility] Bariatric Surgery - [place] [address] [place] [address] Allen Thompson PA-C 111 [facility] 5 [place] [phone] 10/26/2024 10:45 EST Telemedicine [facility] Neurology - [address] [address] Sulema Nicole NP [address] [place] [address] Level 2 [place] [phone] documented as of this encounter Visit Diagnoses Not on filedocumented in this encounter Care Teams Activity Specialist Relationship Specialty Start Date End Date Juma Herrera MD [address] [place] [phone] PCP - General 09/25/12 12/07/18 documented as of this encounter
--- OUTSIDE RECORDS SUMMARY | 2024-09-17 09:13 | XMS_ITS | Encounter Summary ---
Author Organization [facility] Address [address] [place] [address] Care Team Providers Care Tube Tester Name Role Phone Juma Herrera MD Primary Care Provider [phone] Reason for Visit * Reason Onset Date Comments Other 09/21/2015 Encounter Details Date Type Department Care Team (Late st Contact Info) Description 09/21/[address] [facility] Bariatric Surgery - [place] [address] [place] [address] Master Ugarte MD [address] [place] [phone] Other Social History Tobacco Use Types [...] the protein powder. Please call back at [phone] documented in this encounter Plan of Treatment Upcoming Encounters Date Type Department Care Team (Late st Contact Info) Description 09/18/2024 11:[address] [facility] Bariatric Surgery - [place] [address] [place] [place], [place] [address] Allen Thompson, PA-C 111 [facility] 5 [place] [phone] 10/26/2024 10:[address] [facility] Neurology - [address] [address] Sulema Nicole NP [address] [place] [address] [address] [place] [address] documented as of this encounter Visit Diagnoses Not on filedocumented in this encounter Care Teams Tube Tester Relationship Specialty Start Date End Date Juma Herrera MD [address] [facility] [place] [phone] PCP - General 09/25/12 12/07/18 documented as of this encounter
--- OUTSIDE RECORDS SUMMARY | 2024-09-17 09:13 | XMS_ITS | Encounter Summary ---
Author Organization [facility] Address [address] [place] [address] Care Team Providers Care Office Cleaner Name Role Phone Juma Herrera MD Primary Care Provider [phone] Reason for Referral * Consult (Routine) - Specialty Report Received Specialty Diagnoses / Procedures [facility] Referred To Contact Pain Medicine Diagnoses Neck pain Pain of right upper extremity Osteoarthritis of cervical spine, unspecified spinal osteoarthritis complication status Starr Hart PA-C [facility] Interventional Pain [address] [place] [address] Phone: tel: fax: Referral ID Status Reason Start Date Expiration Date Visits Requested Visits Authorized [id number] Specialty Report Received Specialty Services Required 8 [...] Info) Description 07/14/2018 11:45 EST Office Visit [facility] Sports Medicine Program - [place] [address] [place] [address] Starr Hart PA-C Neck pain (Primary Dx); Pain of [...] documented in this encounter Discharge Diagnoses Diagnosis M54.2 Cervicalgia-M54.2[ICD-10-CM] [...] obesity with BMI of 45.0-49.9, adult (HCC-CMS) 03/10/2015 ??? Cervicalgia 09/29/2012 ??? Idiopathic peripheral neuropathy 03/20/2012 ??? Tarsal tunnel syndrome of right side 08/02/2011 ??? 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 Lumbar radiculopathy 10/03/2006 Class: Permanent Past Medical History: Diagnosis Date ??? Anxiety ??? Arthritis ??? Back pain ??? Bipolar disorder (HCC-CMS) ??? Breathing problem ??? Depression ??? Diabetes mellitus (HCC-CMS) ??? Drug abuse (HCC-CMS) ??? Eye problem ??? Generalized headaches ??? [...] Info) Description 09/18/2024 11:00 EST Office Visit [facility] Bariatric Surgery - [place] [address] [place] [address] Allen Thompson PA-C 111 [facility], Level 5 [place] [phone] 10/26/2024 10:45 EST Telemedicine [facility] Neurology - [address] [phone] Sulema Nicole NP [address] [place] [address] Level 2 [place] [phone] Scheduled Referrals Name Type Priority Associated Diagnoses [...] may reflect changes made after this encounter. SUMAtriptan succinate 3 mg/0.5 mL pen injector Inject into the skin three times a week. 02/21/2021 added in this encounter Care Teams Office Cleaner Relationship Specialty Start Date End Date Juma Herrera MD [address] [facility] [place] [phone] PCP - General 09/25/12 12/07/18 documented as of this encounter
--- OUTSIDE RECORDS SUMMARY | 2024-09-17 09:13 | XMS_ITS | Encounter Summary ---
Author Organization [facility] Address [address] [place] [address] Care Team Providers Care Fence Installer Foreman Name Role Phone Juma Herrera MD Primary Care Provider [phone] Reason for Visit * Reason Comments Obesity post op sleeve () Encounter Details Date Type Department Care Team (Late st Contact Info) Description 09/27/2017 10:00 EST Office Visit [facility] Bariatric Surgery [address] [address] Allen Thompson, PALizettC [address] [place] [address], Level 5 [place] [address] S/P laparoscopic sleeve gastrectomy (Primary [...] documented in this encounter Discharge Diagnoses Diagnosis Z09 Encntr for f/u exam aft trtmt for cond oth than malig neoplm-Z09[ICD-10-CM] Z98.84 Bariatric surgery status-Z98.84[ICD-10-CM] documented in this encounter Discharge Disposition Disposition Code Departure Means Destination Auto Discharge documented in this encounter Progress Notes * Allen Thompson PA - 09/27/2017 1000 EST 09/27/2017 Tia Eileen Spain is here in follow-up [...] with BMI of 45.0-49.9, adult ([facility]) SUBJECTIVE: Emesis: No complaints of emesis [...] should be coming soon, drawn yesterday at [facility]AN: 1. Return to clinic in 1 year(s). 2. No orders of the defined types were placed in this encounter. 3. Seen and discussed with Exercise Rider at this visit. MARGARITA Gomez 09/27/2017 11:06 [...] weather allows; is active at work at [employer]-on feet and moving for 6 hours-usually works [...] Recent Labs: No labs currently-had done in [facility] yesterday and they will fax them Assessment: [...] [facility] B[facility] Surgery - [address] [place] [address] Allen Thompson PA-C [address] [place] [address], [facility] 5 [place] [phone] 10/26/2024 10:45 EST Telemedicine [facility] Neurology - [address] [address] Sulema Nicole NP 1 [facility], Level [address] [place] [phone] documented as of this encounter Visit Diagnoses [...] may reflect changes made after this encounter. MEDICAL MARIJUANA as needed. added in this encounter Care Teams Fence Installer Foreman Relationship Specialty Start Date End Date Juma Herrera MD [address] [facility] [place] [phone] PCP - General 09/25/12 12/07/18 documented as of this encounter
--- OUTSIDE RECORDS SUMMARY | 2024-09-17 09:13 | XMS_ITS | Encounter Summary ---
Author Organization [facility] Address [address] [place] [address] Care Team Providers Care Band Attacher Name Role Phone Juma Herrera MD Primary [...] (Late st Contact Info) Description 11/10/2015 Telephone [facility] Bariatric Surgery - [address] [address] Master Ugarte MD [address] [place] [phone] Paperwork request (Pt unable to find [...] Encounter - Mary Rosales RN - 11/10/2015 6569 EST Faxed return to work letter to employer. documented in this encounter Plan of Treatment Upcoming Encounters Date Type Department Care Team (Late st Contact Info) Description 09/18/2024 11:00 EST Office Visit [facility] Bariatric Surgery - [place] [address] [place], [place] [address] Allen Thompson PA-C [address] [place] [address], [facility] 5 [place] [phone] 10/26/2024 10:45 EST Telemedicine [facility] Neurology - [address] [address] Sulema Nicole, MINERAL SURVEYOR 1 [facility], Level [address] [place] [address] documented as of this encounter Visit Diagnoses Not on filedocumented in this encounter Care Teams Band Attacher Relationship Specialty Start Date End Date Juma Herrera MD [address] [place] [phone] PCP - General 09/25/12 12/07/18 documented as of this encounter
--- OUTSIDE RECORDS SUMMARY | 2024-09-17 09:13 | XMS_ITS | Encounter Summary ---
Author Organization [facility] Address [address] [place] [address] Care Team Providers Care Procedure Rn Name Role Phone Juma Herrera MD Primary Care Provider [phone] Reason for Referral * Radiology Services (Routine) - New Request Specialty Diagnoses / Procedures Referred By Contac t Referred To Contact Diagnoses Right shoulder pain, unspecified chronicity Procedures SHOULDER 2 OR MORE VIEWS Starr Hart PA-C Referral ID Status Reason Start Date Expiration Date V isits Requested Visits Authorized [id number] New Request 05/08/2018 1 1 Encounter Details Date Type Department Care Team (Late st Contact Info) Description 05/08/[address] [facility] Sports Medicine Program - [place] [address] Starr Hart PA-C Right shoulder pain, unspecified [...] 12:00 Khoa Peñaloza documented in this encounter Plan of Treatment Upcoming Encounters Date Type Department Care Team (Late st Contact Info) Description 09/18/2024 11:[address] [facility] [address] [place] [address] Allen Thompson PA-C 111 [facility] 5 [place] [phone] 10/26/2024 10:[address] [facility] Neurology - [address] 6[address] Sulema Nicole NP [address] [place] [address] 2 [place] [phone] documented as of this encounter Procedures Procedure [...] 10:14 AM HISTORY: ?? M25.511-Pain in right zeefwfcx-YVL-75; shoulder pain COMPARISON: None. FINDINGS / IMPRESSION: 4 views of the right shoulder show no evidence of acute fracture or malalignment. The humeral head is well aligned with the scapular glenoid fossa. There are moderate degenerative changes in the acromioclavicular joint. Procedure Note Mark Sherwood, DO - 05/20/2018 EXAM/TECHNIQUE: RIGHT SHOULDER 2 OR MORE VIEW 05/20/2018 10:14 AM HISTORY: M25.511-Pain in right ngpyyyjo-DBK-20; shoulder pain COMPARISON: None. FINDINGS / IMPRESSION: 4 views of the right shoulder show no evidence of acute fracture or malalignment. The humeral head is well aligned with the scapular glenoid fossa. There are moderate degenerative changes in the acromioclavicular joint. us Starr Hart PA-C IMG DIAGNOSTIC IMAGING ORD ERABLES Final Result documented in this encounter Visit Diagnoses Diagnosis Right shoulder pain, unspecified chronicity- Primary documented in this encounter Care Teams Procedure Rn Relationship Specialty Start Date End Date Juma Herrera MD [address] [place] [phone] PCP - General 09/25/12 12/07/18 documented as of this encounter
--- OUTSIDE RECORDS SUMMARY | 2024-09-17 09:13 | XMS_ITS | Encounter Summary ---
Author Organization [facility] Address [address] [place] [address] Care Team Providers Care Machine Veneer Repairer Name Role Phone Juma Herrera MD Primary Care Provider [phone] Reason for Visit * Reason Onset Date Comments Results 09/21/2016 Encounter Details Date Type Department Care Team (Late st Contact Info) Description 09/21/2016 Orders Only [facility] Bariatric Surgery - [place] [address] [place] [address] Mary Rosales RN Morbid obesity, unspecified obesity type (CMS-HCC) ([facility]); S/P laparoscopic sleeve gastrectomy Social History Tobacco [...] Info) Description 09/18/2024 11:00 EST Office Visit [facility] Bariatric Surgery - [place] [address] [place] [address] Allen Thompson PA-C [address] [place] [address] Level [address] [place] [phone] 10/26/2024 10:45 EST Telemedicine [facility] Neurology - [address] [place] 1 [place] [address] Sulema Nicole NP 1 [facility] 2 [place] [phone] documented as of this encounter Procedures Procedure Name Priority Date/Time Associated Diagnosis Comments THIAMIN (VITAMIN B1), WB Routine 09/17/2016 Morbid obesity, unspecified obesity type ([facility]-H[facility]) ([facility]) S/P laparoscopic sleeve gastrectomy VITAMIN D (25,[place]) Routine 09/17/2016 Morbid obesity, unspecified obesity type (CMS-HCC) ([facility]) S/P laparoscopic sleeve gastrectomy PTH INTACT Routine 09/17/2016 Morbid obesity, unspecified obesity type (CMS-HCC) ([facility]) S/P laparoscopic sleeve gastrectomy COMPLETE BLOOD COUNT [...] S ORDERABLES Final Result Performing Organization Address [facility]/ZIP Co de Phone Number [facility] * CREATININE (09/17/2016) Creatinine, External 0.74 [facility] GFR, Calculated, External [facility] Blood specimen (specimen) 09/17/2016 us Allen Marroquiner-Dakotasy PA-C CHEMISTRY & BLOOD GA S ORDERABLES Final Result [facility] * FERRITIN (09/17/2016) Ferritin, External 10 [facility] Blood specimen (specimen) 09/17/2016 us Allen Thompson PA-C CHEMISTRY & BLOOD GA S ORDERABLES Final Result [facility] * HEMAGRAM (09/17/2016) HCT, External 39.1 [facility] MCH, External 28.8 [facility] MCV, External 88.1 [facility] MCHC, External 32.7 [facility] Hemoglobin, External 12.8 [facility] WBC, External 6.07 [facility] RBC, External 4.44 [facility] PLT, External 342 [facility] RDW-CV, External 14.3 [facility] Blood specimen (specimen) 09/17/2016 us Allen Thompson PA-C HEMATOLOGY & PF4 ORD ERABLES Final Result [facility] * IRON (09/17/2016) Iron, External 100 [facility] Blood specimen (specimen) 09/17/2016 us Allen Thompson PA-C CHEMISTRY & BLOOD GA S ORDERABLES Final Result [facility] * PTH INTACT (09/17/2016) PTH, External 51 [facility] Blood specimen (specimen) 09/17/2016 us Allen Trinh Lopezer[employer] PA-C CHEMISTRY & BLOOD GA S ORDERABLES Final Result [facility] * THIAMIN (VITAMIN B1), WB (09/17/2016) Thiamine, External 106 [facility] Comment, External [facility] Blood specimen (specimen) 09/17/2016 us Allen Trinh [employer] PA-C CHEMISTRY & BLOOD GA S ORDERABLES Final Result [facility] * VITAMIN B12 (09/17/2016) Vitamin B-12, External 392 [facility] Blood specimen (specimen) 09/17/2016 us Allen Trinh Calitter-Dakotasy PA-C CHEMISTRY & BLOOD GA S ORDERABLES Final Result [facility] * (ABNORMAL) VITAMIN D (25,[place]) (09/17/2016) 25OH Vitamin D Tot, External 21.9(A) 30 - 100 [facility] Blood specimen (specimen) 09/17/2016 us Allen Trinh Lopezer-Dakotasy PA-C CHEMISTRY & BLOOD GA S ORDERABLES Final Result [facility] documented in this encounter Visit Diagnoses Diagnosis Morbid obesity, unspecified obesity type ([facility]) S/P laparoscopic sleeve gastrectomy Bariatric surgery status documented in this encounter Care Teams Machine Veneer Repairer Relationship Specialty Start Date End Date Juma Herrera MD [address] [place] [place] [phone] PCP - General 09/25/12 12/07/18 documented as of this encounter
--- OUTSIDE RECORDS SUMMARY | 2024-09-17 09:13 | XMS_ITS | Encounter Summary ---
Author Organization [facility] Address [address] [place] [address] Care Team Providers Care Dental Surgery Doctor Name Role Phone Juma Herrera MD Primary Care Provider [phone] Encounter Details Date Type Department Care Team (Latest Contact Info) Description 11/22/2016 11:24 EDT - 11/22/2016 23:59 EDT Hospital Encounter [address] [address] Germaine Worthy MD Discharge Disposition: Home or Self Care [...] 12:00 Khoa Peñaloza documented in this encounter Medications at [...] [facility] Bariatric Surgery [facility] [address] [place] [address] Allen Thompson PA-C 111 [facility] Level [address] [place] [phone] 10/26/2024 10:45 EST Telemedicine [facility] Neurology - [address] [phone] Sulema Nicole NP 1 [facility] 2 [place] [address] documented as of this encounter Visit Diagnoses Not on filedocumented in this encounter Care Teams Dental Surgery Doctor Relationship Specialty Start Date End Date Juma Herrera MD [address] [facility] [place] [phone] PCP - General 09/25/12 12/07/18 documented as of this encounter
--- OUTSIDE RECORDS SUMMARY | 2024-09-17 09:13 | XMS_ITS | Encounter Summary ---
Author Organization [facility] Address [address] [place] [address] Care Team Providers Care Client Experience Administrator Name Role Phone Juma Herrera MD Primary Care Provider [phone] Reason for Referral * Radiology Services (Routine) - New Request Specialty Diagnoses / Procedures Referred By Contac t Referred To Contact Diagnoses Right shoulder pain, unspecified chronicity Procedures MR EXTREMITY SHOULDER WO CONTRAST Starr Hart PA-C Referral ID Status Reason Start Date Expiration Date V isits Requested Visits Authorized [id number] New Request 05/20/2018 1 1 * Radiology Services (Routine) - New Request Specialty Diagnoses / Procedures Referred By Contac t Referred To Contact Diagnoses Neck pain Procedures MR CERVICAL SPINE WO CONTRAST Starr Hart PA-C Referral ID Status Reason Start Date Expiration Date V isits Requested Visits Authorized [id number] New Request 05/20/2018 1 1 * Radiology Services (Routine/Next Available) - New Request Specialty Diagnoses / Procedures Referred By Contac t Referred To Contact Diagnoses Right shoulder pain, unspecified chronicity Procedures MSK US SHOULDER Starr Hart PA-C Referral ID Status Reason Start Date Expiration Date V isits Requested Visits Authorized [id number] New Request 05/20/2018 1 1 Encounter Details Date Type Department Care Team (Late st Contact Info) Description 05/20/2018 Orders Only [facility] Sports Medicine Program - [place] [address] Starr Hart PA-C Right shoulder [...] 11:00 EST Office Visit [facility] Bariatric Surgery [facility] [address] [place] [address] Allen Thompson PA-C [address] [place] [address] 5 [place] [phone] 10/26/2024 10:45 EST Telemedicine [facility] Neurology - [address] [place] 1 [place], [place] [address] Sulema Nicole, TURBO GENERATOR OILER 1 [facility], Level 2 [place] [phone] documented as of this encounter Procedures Procedure [...] 9:35 AM Clinical History/Comments: M25.511-Pain in right [id number]; right shoulder pain COMPARISON: Right shoulder radiographs on May 20, 2018. TECHNIQUE: Routine MRI of the right shoulder utilizing a 12 cm imaging qtuqi-mf-[id number]. No intravenous contrast administration. FINDINGS Rotator Cuff: [...] 9:35 AM Clinical History/Comments: M25.511-Pain in right [id number]; right shoulder pain COMPARISON: Right shoulder radiographs on May 20, 2018. TECHNIQUE: Routine MRI of the right shoulder utilizing a 12 cm imaging nbbad-ay-ojqu. No intravenous contrast administration. FINDINGS Rotator Cuff: [...] accordingly. 7. Additional findings as above. . us Starr Hart PA-C IMG MRI ORDERABLES Final R esult * MR CERVICAL SPINE WO CONTRAST (07/14/2018 [...] above interpretation and agree with the findings. us Starr Hart PA-C IMG MRI ORDERABLES Final R esult * MSK US SHOULDER (05/20/2018 13:04 EDT) Anatomical Region Laterality Modality Other 05/20/2018 13:0 4 EDT Narrative 05/20/2018 13:04 EDT Non Reportable Exam Procedure Note JOURNEYMAN WELDER, IMAGING - 05/26/2018 Non Reportable Exam us Starr Hart PA-C IMG US ORDERABLES Final Re sult documented in this encounter Visit Diagnoses Diagnosis Right shoulder pain, unspecified chronicity- Primary Neck pain Cervicalgia documented in this encounter Care Teams Client Experience Administrator Relationship Specialty Start Date End Date Juma Herrera MD [address] [place] [phone] PCP - General 09/25/12 12/07/18 documented as of this encounter
--- OUTSIDE RECORDS SUMMARY | 2024-09-17 09:13 | XMS_ITS | Encounter Summary ---
Author Organization [facility] Address [address] [place] [address] Care Team Providers Care Braid Folder Name Role Phone Juma Herrera MD Primary Care Provider [phone] Reason for Visit * Reason Onset Date Comments Results 11/28/2015 Encounter Details Date Type Department Care Team (Late st Contact Info) Description 11/28/[address] [facility] Bariatric Surgery - [place] [address] [place] [address] Mary Rosales RN Morbid obesity due to [...] Visit [facility] Bariatric Surgery [facility] [address] [place] [address] Allen Thompson, PA-C [address] [place] [address] 5 [place] [phone] 10/26/2024 10:[address] [facility] Neurology - [address] [place] [address] [address] Sulema Nicole NP [address] [place] [address] 2 [place] [phone] documented as of this encounter Procedures Procedure Name Priority Date/Time Associated Diagnosis Comments THIAMIN (VITAMIN B1), WB Routine 11/23/2015 Morbid obesity due to excess calories ([facility]) ([facility]) S/P laparoscopic sleeve gastrectomy Post-resection malabsorption VITAMIN D (25,[place]) Routine 11/23/2015 Morbid obesity due to excess calories ([facility]) ([facility]) S/P laparoscopic sleeve gastrectomy Post-resection malabsorption [...] Results * CALCIUM (11/23/2015) Calcium, External 9.3 [facility] Calculated Calcium, External [facility] Blood specimen (specimen) 11/23/2015 us Allen Thompson PA-C CHEMISTRY & BLOOD GA S ORDERABLES Final Result [facility] * CREATININE (11/23/2015) Creatinine, External 0.6 [facility] GFR, Calculated, External [facility] Blood specimen (specimen) 11/23/2015 us Allen Thompson PA-C CHEMISTRY & BLOOD GA S ORDERABLES Final Result [facility] * FERRITIN (11/23/2015) Ferritin, External 27 [facility] Blood specimen (specimen) 11/23/2015 us Allen Kylesy PA-C CHEMISTRY & BLOOD GA S ORDERABLES Final Result [facility] * HEMAGRAM (11/23/2015) HCT, External 43.1 [facility] MCH, External 30.3 [facility] MCV, External 88.3 [facility] MCHC, External 34.3 [facility] Hemoglobin, External 14.8 [facility] WBC, External 7.63 [facility] RBC, External 4.88 [facility] PLT, External 306 [facility] RDW-CV, External 15.1 [facility] Blood specimen (specimen) 11/23/2015 us Allen Thompson PA-C HEMATOLOGY & PF4 ORD ERABLES Final Result [facility] * IRON (11/23/2015) Iron, External 82 [facility] Blood specimen (specimen) 11/23/2015 us Allen Thompson PA-C CHEMISTRY & BLOOD GA S ORDERABLES Final Result [facility] * PTH INTACT (11/23/2015) PTH, External 23 [facility] Blood specimen (specimen) 11/23/2015 us Allen Thompson PA-C CHEMISTRY & BLOOD GA S ORDERABLES Final Result [facility] * THIAMIN (VITAMIN B1), WB (11/23/2015) Thiamine, External 106 [facility] Comment, External [facility] Blood specimen (specimen) 11/23/2015 us Allen AVILA-C CHEMISTRY & BLOOD GA S ORDERABLES Final Result Performing Organization Address City/[facility]/ZIP Co de Phone Number [facility] * VITAMIN B12 (11/23/2015) Vitamin B-12, External 653 [facility] Blood specimen (specimen) 11/23/2015 us Allen AVILA-C CHEMISTRY & BLOOD GA S ORDERABLES Final Result [facility] * (ABNORMAL) VITAMIN D (25,[place]) (11/23/2015) 25OH Vitamin D Tot, External 25.2(A) 30 - 100 [facility] Blood specimen (specimen) 11/23/2015 us Allen Thompson PA-C CHEMISTRY & BLOOD GA S ORDERABLES Final Result [facility] documented in this encounter Visit Diagnoses Diagnosis Morbid obesity due to excess calories ([facility]) S/P laparoscopic sleeve gastrectomy Bariatric surgery status Post-resection malabsorption Other and unspecified postsurgical nonabsorption Vitamin D deficiency Unspecified vitamin D deficiency documented in this encounter Care Teams Braid Folder Relationship Specialty Start Date End Date Juma Herrera MD [address] [place] [phone] PCP - General 09/25/12 12/07/18 documented as of this encounter
--- OUTSIDE RECORDS SUMMARY | 2024-09-17 09:13 | XMS_ITS | Encounter Summary ---
Author Organization [facility] Address [address] [place] [address] Care Team Providers Care Rn Cvicu Name Role Phone Juma Herrera MD Primary Care Provider [phone] Reason for Visit * Reason Onset Date Comments Other 10/15/2016 asked for pictur es of her before and after surgery. She still has not received them yet. Encounter Details Date Type Department Care Team (Late st Contact Info) Description 10/15/2016 Telephone [facility] Bariatric Surgery - [place] [address] [place], [place] [address] Allen Thompson, ELISABETH 111 [facility], [facility] [place], Level [address] [place] [address] Other (asked for pictures of [...] - 10/15/2016 1038 EST Corrected patient's email: [email or web address] documented in this encounter Plan of Treatment Upcoming Encounters Date Type Department Care Team (Late st Contact Info) Description 09/18/2024 11:00 EST Office Visit [facility] Bariatric Surgery - [address] [address] Allen Thompson, PA-C [address] [place] [address] 5 [place] [phone] 10/26/2024 10:45 EST Telemedicine [facility] Neurology - S [address] [address] Sulema Nicole NP [address] [place] [address] 2 [place] [phone] documented as of this encounter Visit Diagnoses Not on filedocumented in this encounter Care Teams Rn Cvicu Relationship Specialty Start Date End Date Juma Herrera MD [address] [place] [phone] PCP - General 09/25/12 12/07/18 documented as of this encounter
--- OUTSIDE RECORDS SUMMARY | 2024-09-17 09:13 | XMS_ITS | Encounter Summary ---
Author Organization [facility] Address [address] [place] [address] Care Team Providers Care Gas Tester Name Role Phone Juma Herrera MD Primary Care Provider Reason for Visit * Reason Comments Neck Pain neck pain radiating down right arm * Consult (Routine) - Specialty Report Received Specialty Diagnoses / Procedures Referred By [facility] t Referred To Contact Pain Medicine Diagnoses Neck pain Pain of right upper extremity Osteoarthritis of cervical spine, unspecified spinal osteoarthritis complication status Starr Hart PALizettC [facility] Interventional Pain [address] [place] [address] Phone: tel: fax: Referral ID Status Reason Start Date Expiration Date Visits Requested Visits Authorized [id number] Specialty Report Received Specialty Services Required 8 1 1 Encounter Details Date Type Department Care Team (Latest Contact Info) Description 09/15/2018 7:45 EST Office Visit [facility] Interventional Pain [address] [place] [address] [place] [address] [place] [address] DDD (degenerative disc disease), cervical [...] 09/05/2015 12:00 NATALY Hernandez Khoa bruce * Because of a physical, [...] 7:45 EST [facility] [address] [place], [place] [address] Patient Instructions You have had your cervical [...] Notes * Shantelle Gautam RN - 09/15/2018 4307 EST [facility] Rooming Note Does patient have a Special Education Bus Driver? yes Is patient NPO? (Solids since [...] device? Other: * Kavon Butler - 09/15/2018 4857 EST Procedure: Diagnostic C6-7 cervical epidural under fluoroscopy Date Performed: 09/15/2018 Quality Control Checker: Kavon Butler M.D. See history and physical [...] [place] * Millie Nunez RN - 09/15/2018 9671 EST Contrast Dye Used: 3 mls Wasted: 7 mls documented in this encounter Plan of Treatment Upcoming Encounters Date Type Department Care Team (Late st Contact Info) Description 09/18/2024 11:00 EST Office Visit [facility] Bariatric Surgery - [place] [address] [place] [address] Allen Thompson, PA-C 111 [facility], [facility], Level 5 [place] [address] 10/26/2024 10:45 EST Telemedicine [facility] Neurology - [address] [address] Sulema Nicole NP [address] [place] [address], Level 2 [place] [address] documented as of this encounter [...] mg documented in this encounter Care Teams Gas Tester Relationship Specialty Start Date End Date Juma Herrera MD [address] [facility] [place] [phone] PCP - General 09/25/12 12/07/18 documented as of this encounter
--- OUTSIDE RECORDS SUMMARY | 2024-09-17 09:13 | XMS_ITS | Encounter Summary ---
Author Organization [facility] Address [address] [place] [address] Care Team Providers Care Lead Cook Name Role Phone Juma Herrera MD Primary Care Provider [phone] Reason for Visit * Reason Comments Obesity POST OP SLEEVE 2 WEStephanie JACKSON (09/05/15) Encounter Details Date Type Department Care Team (Late st Contact Info) Description 09/20/2015 13:45 EST Office Visit [facility] Bariatric Surgery [facility] [address] [place], [place] [phone] Master Ugarte MD [address] [place] [phone] S/P laparoscopic sleeve gastrectomy (Primary Dx) [...] in this encounter Progress Notes * Lux Dumnot, RD - 09/20/2015 1522 EST Nutrition Post [...] verbally * Master Ugarte MD - 09/20/2015 1429 EST 09/20/2015 Tia Spain is here in [...] this encounter. 3. Seen and discussed with Solid Die Cutter at this visit. Master Ugarte MD 09/20/2015 14:25 documented in this encounter Plan of Treatment Upcoming Encounters Date Type Department Care Team (Late st Contact Info) Description 09/18/2024 11:00 EST Office Visit [facility] Bariatric Surgery - [place] [address] [place] [address] Allen Thompson PA-C 111 [facility] 5 [place] [phone] 10/26/2024 10:45 EST Telemedicine [facility] Neurology - S [address] [phone] Sulema Nicole, FLORIST DESIGNER 1 [facility] 2 [place] [phone] documented as of this encounter Visit Diagnoses Diagnosis S/P laparoscopic sleeve gastrectomy- Primary Bariatric surgery status documented in this encounter Care Teams Lead Cook Relationship Specialty Start Date End Date Juma Herrera MD [address] [facility] [place] [phone] PCP - General 09/25/12 12/07/18 documented as of this encounter
--- OUTSIDE RECORDS SUMMARY | 2024-09-17 09:13 | XMS_ITS | Encounter Summary ---
Author Organization [facility] Address [address] [place] [address] Care Team Providers Care Lift Manager Name Role Phone Juma Herrera MD Primary Care Provider [phone] Encounter Details Date Type Department Care Team (Late st Contact Info) Description 07/09/2018 Orders Only [facility] Sports Medicine Program - [place] [address] Starr Hart PA-C Social History [...] [facility] Bariatric Surgery - [place] [address] [place], [place] [address] Allen Thompson, PA-C [address] [place] [address] 5 [place] [phone] 10/26/2024 10:45 EST Telemedicine [facility] Neurology - [address] [place] 1 [place], [place] [phone] Sulema Nicole NP 1 [facility] 2 [place] [address] documented as of this encounter Visit Diagnoses Not on filedocumented in this encounter Care Teams Lift Manager Relationship Specialty Start Date End Date Juma Herrera MD [address] [facility] [place] [phone] PCP - General 09/25/12 12/07/18 documented as of this encounter
--- OUTSIDE RECORDS SUMMARY | 2024-09-17 09:13 | XMS_ITS | Encounter Summary ---
Author Organization [facility] Address [address] [place] [address] Care Team Providers Care Site Acquisition Manager Name Role Phone Juma Herrera MD Primary Care Provider [phone] Reason for Visit * Reason Comments Obesity 1ST POST OP SLEEVE ( 09/05/15) Encounter Details Date Type Department Care Team (Late st Contact Info) Description 09/14/2015 13:15 EST Office Visit [facility] General Surgery [facility] [address] [address] [place], [place] [phone] Master Ugarte MD [address] [place] [address] S/P laparoscopic sleeve gastrectomy (Primary [...] Progress Notes * Lux Dumont, RD - 09/16/2015 1432 EST Nutrition Post Op Visit: Gastric Sleeve [...] week Supplement Changes: chewable MVM daily starting 1/18 Initiate food logs Education Provided: Weight Control:1-2 lbs per week Other:reviewed diet progression; follow-up in 1 week * Master Ugarte MD - 09/14/2015 4393 EST 09/14/2015 Tia Spain is here in [...] peace yfn removed Seen and discussed with Auction Clerk at this visit. Master Ugarte MD 09/14/2015 13:34 documented in this encounter Plan of Treatment Upcoming Encounters Date Type Department Care Team (Late st Contact Info) Description 09/18/2024 11:00 EST Office Visit [facility] Bariatric Surgery - [place] [address] [place] [address] Allen Thompson PA-C [address] [place] [address] Level 5 [place] [address] 10/26/2024 10:45 EST Telemedicine [facility] Neurology - [address] [place] [address] [place], [place] [phone] Sulema Nicole NP 1 [facility], Level 2 [place] [phone] documented as of this encounter Visit Diagnoses Diagnosis S/P laparoscopic sleeve gastrectomy- Primary Bariatric surgery status documented in this encounter Historical Medications * This list may reflect changes made after this encounter. diphenhydrAMINE (BENYLIN) 12.5 mg/5 mL syrup Take 50 mg by mouth every 4 hours. Reported on 09/28/2016 09/28/2016 added in this encounter Care Teams Site Acquisition Manager Relationship Specialty Start Date End Date Juma Herrera MD [address] [facility] [place] [phone] PCP - General 09/25/12 12/07/18 documented as of this encounter
--- OUTSIDE RECORDS SUMMARY | 2024-09-17 09:14 | XMS_ITS | Encounter Summary ---
Author Organization [facility] Address [address] [place] [address] Care Team Providers Care Fairing Man Name Role Phone Juma Herrera MD Primary Care Provider [phone] Reason for Visit * Reason Comments Back Pain low back pain * Consult (Routine) - Specialty Report Received Specialty Diagnoses / Procedures [facility] Pain Medicine Diagnoses Lumbago S/P lumbar fusion Lumbar spondylosis Starr Hart, PALizettC [facility] Interventional Pain [address] [place] [address] Phone: tel: fax: Referral ID Status Reason Start Date Expiration Date Visits Requested Visits Authorized [id number] Specialty Report Received Specialty Services Required 05/04/2014 1 1 Encounter Details Date Type Department Care Team (Latest Contact Info) Description 07/08/2014 13:45 EST Office Visit [facility] Interventional Pain [address] [place], [place] [phone] [place] [address] [place] [address] Sacroiliitis, not elsewhere classified (HCC-CMS) [...] encounter Patient Instructions * Patient Instructions* Millie Fleming RN - 07/08/2014 14:34 EST [facility] [address] [address] Patient Instructions You have had your bilateral [...] None Outcomes: independent and verbalized understanding Signature: MILLIE FLEMING RN documented in this encounter Progress Notes * Kavon Butler - 07/08/2014 1443 EST Patient Name: Tia Spain : 1975 Date of Service: 07/08/2014 Small Appliance Assembly Supervisor: Kavon Butler MD Procedure: bilateral sacroiliac joint [...] rest. Please see the note from Starr Hart 05/04/14 for details of the history, prior [...] * Stacey Wilkes - 07/08/2014 1400 EST [facility] Pain Management Rooming Note Does patient have a Felling Machine Operator? yes Is patient NPO? (Solids [...] Info) Description 09/18/2024 11:00 EST Office Visit [facility] Bariatric Surgery - [address] [address] Allen Thompson PA-C 111 [facility] 5 [place] [phone] 10/26/2024 10:45 EST Telemedicine [facility] Neurology - [address] [phone] Sulema Nicole NP [address] [place] [address] 2 [place] [phone] documented as of this encounter Visit Diagnoses Diagnosis Sacroiliitis, not elsewhere classified ([facility])- Primary Sacroiliitis, not elsewhere classified S/P [...] mg documented in this encounter Care Teams Fairing Man Relationship Specialty Start Date End Date Juma Herrera MD [address] [facility] [place] [phone] PCP - General 09/25/12 12/07/18 documented as of this encounter
--- OUTSIDE RECORDS SUMMARY | 2024-09-17 09:14 | XMS_ITS | Encounter Summary ---
Author Organization [facility] Address [address] [place] [address] Care Team Providers Care Yard Truck Driver Name Role Phone Juma Herrera MD Primary Care Provider [phone] Encounter Details Date Type Department Care Team (Latest Contact Info) Description 05/10/2014 6:02 EDT - 05/10/2014 23:59 EDT Hospital Encounter [place] [id number] [place] [address] Germaine Worthy MD Discharge Disposition: Home or [...] Take 650 mg by mouth as needed. 6 cholecalciferol, Vitamin D3, 1,000 unit tablet Take 1,000 Units by mouth 2 times daily. 5 duloxetine (CYMBALTA) 60 mg capsule Take 60 mg by mouth daily. Take with 30mg cap to = 90mg dose 5 HYDROcodone-acet aminophen (NORCO) 5-325 mg per tablet Take 1 Tab by mouth every 6 hours as needed for Pain. 60 Each 0 09/10/2013 5 meloxicam (MOBIC) 7.5 mg tablet Take 1 Tab by mouth daily. 30 Tab 2 05/04/2014 5 methylphenidate (RITALIN) 10 mg tablet Take 10 mg by mouth daily. 5 methylPREDNISolo ne (MEDROL DOSEPACK) 4 mg tablet follow package directions 1 Each 0 09/10/2013 5 [place]-3 Fatty Acids-Vitamin E (FISH OIL) 1,000 mg cap Take 1,000 mg by mouth 2 times daily. 5 oxyCODONE (ROXICODONE) 5 mg immediate release tablet Take 10 mg by mouth every 4 hours. 6 prochlorperazine (COMPAZINE) 10 mg tablet Take 1 Tab by mouth every 6 hours as needed for Nausea. 10 Tab 2 09/29/2012 5 rizatriptan (MAXALT) 10 mg tablet Take 10 mg by mouth once as needed. May repeat in 2 hours if needed 2 topiramate (TOPAMAX) 100 mg tablet Take 200 mg by mouth 2 times daily. 5 documented as of this encounter Discharge Disposition Disposition Code Departure Means Destination Home or Self Snf documented in this encounter Plan of Treatment Upcoming Encounters Date Type Department Care Team (Late st Contact Info) Description 09/18/2024 11:00 EST Office Visit [facility] Bariatric Surgery - [place] [address] [place], [place] [phone] Allen Thompson PA-C 111 [facility], [facility], Level [address] [place] [address] 10/26/2024 10:45 EST Telemedicine [facility] Neurology - [address] [place] 1 [place], [place] [address] Sulema Nicole, SUPERVISOR ERECTION SHOP 1 [facility], Level [address] [place] [phone] documented as of this encounter Visit Diagnoses Not on filedocumented in this encounter Care Teams Yard Truck Driver Relationship Specialty Start Date End Date Juma Herrera MD [address] [facility] [place] [address] PCP - General 09/25/12 12/07/18 documented as of this encounter
--- OUTSIDE RECORDS SUMMARY | 2024-09-17 09:14 | XMS_ITS | Encounter Summary ---
Author Organization [facility] Address [address] [place] [address] Care Team Providers Care National Service Officer Name Role Phone Juma Herrera MD Primary Care Provider [phone] Reason for Visit * Reason Comments Pre-op Exam pre op Encounter Details Date Type Department Care Team (Late st Contact Info) Description 06/06/2015 15:45 EDT Office Visit [facility] Bariatric Surgery [place] [address] [place], [place] [phone] Allen Thompson, PA-C 111 [facility], Level 5 [place] [address] Morbid obesity with BMI of [...] hydration goals utilizing correct dietary consistencies. Apolonia Holcomb RD, CD * Allen Thompson PA - [...] both classes and going to support group BAC ON TRAC. Tia met with our program dietitian for [...] at 24, will schedule for surgery. MARGARITA oGmez * Apolonia Holcomb - 06/06/2015 155 EDT Medical Nutrition Evaluation-PRE OP NOTE Bariatric Clinic Nutrition Pre-op Visit Visit Number: 6 Desired surgery: Gastric Sleeve Subjective: I logged my liquid trial in my food log. I got a better protein shake today, the Premiere shake from [employer], so I'll use that when I do the liquid diet before my surgery. The blended homework confused me so I haven't done it yet. Food logs: [employer] Meal pattern: good Average caloric intake: 1,600/day. [...] Visit [facility] Bariatric Surgery - [place] [address] [place] [address] Allen Thompson PA-C 111 [facility], [facility], Level 5 [place] [address] 10/26/2024 10:45 EST Telemedicine [facility] Neurology - [address] [address] Sulema Nicole NP [address] [place] [address], Level 2 [place] [address] documented as of this encounter Visit Diagnoses Diagnosis Morbid obesity with BMI of 45.0-49.9, adult ([facility])- Primary Morbid obesity documented in this encounter Care Teams National Service Officer Relationship Specialty Start Date End Date Juma Herrera MD [address] [facility] [place] [phone] PCP - General 09/25/12 12/07/18 documented as of this encounter
--- OUTSIDE RECORDS SUMMARY | 2024-09-17 09:14 | XMS_ITS | Encounter Summary ---
Author Organization [facility] Address [address] [place] [address] Care Team Providers Care Rock Worker Name Role Phone Juma Herrera MD Primary Care Provider [phone] Reason for Visit * Consult, Test and Treat (Routine) - Specialty Report Received Specialty Diagnoses / Procedures Referred By [facility] a mireles Referred To Contact Diagnoses GERD (gastroesophageal reflux disease) Procedures UPPER ENDOSCOPY Master Ugarte MD Phone: tel: fax: Cheng Lamar MD Phone: tel: fax: Referral ID Status Reason Start Date Expiration Date V isits Requested Visits Authorized [id number] Specialty Report Received 01/28/2015 1 1 Encounter Details Date Type Department Care Team (Late st Contact Info) Description 02/10/2015 11:50 EDT - 02/10/2015 23:59 EDT Hospital Encounter [facility] Endoscopy - [address] [phone] Cheng Lamar MD [address] [place] [address], Level 5 [place] [address] Discharge Disposition: Home or Self [...] 650 mg by mouth as needed. 09/07/2015 HYDROcodone-acet aminophen (NORCO) 5-325 mg per tablet [...] Tab 2 09/29/2012 08/31/2015 PROPRANOLOL HCL (PROPRANOLOL ORAL)Indications :migraine Take 120 mg by mouth daily 01/28/2019 rizatriptan (MAXALT) 10 mg tablet Take 10 mg by mouth once as needed. May repeat in 2 hours if needed 12/18/2021 documented as of this encounter Discharge Disposition Disposition Code Departure Means Destination Home or Self Senior Living documented in this encounter Plan of Treatment Upcoming Encounters Date Type Department Care Team (Late st Contact Info) Description 09/18/2024 11:00 EST Office Visit [facility] Bariatric Surgery - [place] [address] [place] [address] Allen Thompson PA-C [address] [place] [address], Level 5 [place] [phone] 10/26/2024 10:45 EST Telemedicine [facility] Neurology - [address] [place] 1 [place] [address] Sulema Nicole, OFF PREMISE SERVICE REPRESENTATIVE 1 [facility], Level 2 [place] [phone] documented as of this encounter Visit Diagnoses Not on filedocumented in this encounter Care Teams Rock Worker Relationship Specialty Start Date End Date Juma Herrera MD [address] [facility] [place] [address] PCP - General 09/25/12 12/07/18 documented as of this encounter
--- OUTSIDE RECORDS SUMMARY | 2024-09-17 09:14 | XMS_ITS | Encounter Summary ---
Author Organization [facility] Address [address] [place] [address] Care Team Providers Care Aircraft Technician Name Role Phone Juma Herrera MD Primary Care Provider [phone] Reason for Visit * Reason Comments Obesity Class Encounter Details Date Type Department Care Team (Late st Contact Info) Description 05/18/2015 8:30 EDT Office Visit [facility] Bariatric Surgery - [address] [address] Lux Dumont, RD [address] [place] [phone] Morbid obesity with BMI of 45.0-49.9, [...] documented in this encounter Progress Notes * ZhanejanellLux mcgee Ana Luisa - 05/18/2015 1146 EDT Bariatric [...] Visit [facility] Bariatric Surgery - [place] [address] [place] [address] Allen Thompson, PALizettC 111 [facility] 5 [place] [phone] 10/26/2024 10:45 EST Telemedicine [facility] Neurology - [address] [address] Sulema Nicole NP [address] [place] [address] Level 2 [place] [phone] documented as of this encounter Visit Diagnoses Diagnosis Morbid obesity with BMI of 45.0-49.9, adult ([facility])- Primary Morbid obesity documented in this encounter Care Teams Aircraft Technician Relationship Specialty Start Date End Date Juma Herrera MD [address] [facility] [place] [phone] PCP - General 09/25/12 12/07/18 documented as of this encounter
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
--- OUTSIDE RECORDS SUMMARY | 2024-09-17 09:14 | XMS_ITS | Encounter Summary ---
Author Organization [facility] Address [address] [place] [address] Care Team Providers Care Sdv Pilot/Navigator/Dds Operator Name Role Phone Alejandra Trevino MD Primary Care Provider [phone] Encounter Details Date Type Department Care Team (Late st Contact Info) Description 05/10/2014 Results Only [facility] Laboratory Services - [facility] ([facility] [address] [place] [phone] Dariela Stiles MD [address] [place] [address] [place] [address] Social History Tobacco Use Types Packs/Day Years [...] Visit [facility] Bariatric Surgery - [address] [phone] Allen Thompson, PALizettC 111 [facility], [facility], Level 5 [place] [phone] 10/26/2024 10:45 EST Telemedicine [facility] Neurology - [address] [place] 1 [place] [address] Sulema Nicole, LEAF STAMPER 1 [facility], Level 2 [place] [address] documented as of this encounter [...] ? TIA HITCHCOCK ? Accession #: ? [id number] ? : ? 1975 (Age: 38) ??F [...] DANG 05/10/2014 9:28 EDT 05/11/2014 9:28 EDT us Dariela Stiles MD PATHOLOGY ORDERABLES Final Resu lt RONNA DANG [address] [place] [address] documented in this encounter Visit Diagnoses Not on filedocumented in this encounter Care Teams Sdv Pilot/Navigator/Dds Operator Relationship Specialty Start Date End Date Alejandra Trevino MD [address] [place] [phone] PCP - General 09/25/12 12/07/18 documented as of this encounter
--- OUTSIDE RECORDS SUMMARY | 2024-09-17 09:14 | XMS_ITS | Encounter Summary ---
Author Organization [facility] Address [address] [place] [address] Care Team Providers Care Business Banker Name Role Phone Juma Herrera MD Primary Care Provider [phone] Encounter Details Date Type Department Care Team (Late st Contact Info) Description 12/03/2014 Documentation Visit [facility] Bariatric Surgery [facility] [address] [place] [address] Social History Tobacco Use [...] [facility] Bariatric Surgery [facility] [address] [place] [address] Allen Thompson PA-C 111 [facility], [facility] 5 [place] [address] 10/26/2024 10:45 EST Telemedicine [facility] Neurology - S [place] 1 [place], [place] [phone] Sulema Nicole, PROPELLER ENGINEER 1 [facility], Level 2 [place] [phone] documented as of this encounter Visit Diagnoses Not on filedocumented in this encounter Care Teams Business Banker Relationship Specialty Start Date End Date Juma Herrera MD [address] [facility] [place] [phone] PCP - General 09/25/12 12/07/18 documented as of this encounter
--- OUTSIDE RECORDS SUMMARY | 2024-09-17 09:14 | XMS_ITS | Encounter Summary ---
Author Organization [facility] Address [address] [place] [address] Care Team Providers Care Night Club Manager Name Role Phone Juma Herrera MD Primary Care Provider [phone] Reason for Visit * Reason Onset Date Comments Advice Only 09/07/2015 Encounter Details Date Type Department Care Team (Late st Contact Info) Description 09/07/2015 Telephone [facility] Bariatric Surgery - [address] [phone] Lux Dumont, RD [address] [place] [phone] Advice Only Social History Tobacco Use [...] of Assessment Author No 09/05/2015 12:00 EST MaryKhoa farias * Because of a physical, mental, or [...] Entry Date Author No 09/05/2015 12:00 EST MaryKhoa farias documented in this encounter Miscellaneous Notes * Telephone Encounter - Lux Dumont RD - 09/07/2015 0804 EST BARIATRIC SURGERY POST-OP [...] oz of fluids a day. Call this assembly instructions writer with any questions/concerns. Return to Clinic:09/14/[address] 09/07/2015 8:04 documented in this encounter Plan of Treatment Upcoming Encounters Date Type Department Care Team (Late st Contact Info) Description 09/18/2024 11:00 EST Office Visit [facility] Bariatric Surgery - [place] [address] Allen Thompson PA-C [address] [place] [address], [facility], Level 5 [place] [address] 10/26/2024 10:45 EST Telemedicine [facility] Neurology - [place] [address] [place] [phone] Sulema Nicole, CRUISE CONSULTANT 1 [facility], Level 2 [place] [phone] documented as of this encounter Visit Diagnoses Not on filedocumented in this encounter Care Teams Night Club Manager Relationship Specialty Start Date End Date Juma Herrera MD [address] [facility] [place] [phone] PCP - General 09/25/12 12/07/18 documented as of this encounter
--- OUTSIDE RECORDS SUMMARY | 2024-09-17 09:14 | XMS_ITS | Encounter Summary ---
Author Organization [facility] Address [address] [place] [address] Care Team Providers Care Certification Engineer Name Role Phone Juma Herrera MD Primary Care Provider [phone] Encounter Details Date Type Department Care Team (Latest Contact Info) Description 01/18/2015 6:54 EDT - 01/18/2015 9:21 EDT Hospital Encounter [facility] Endoscopy Outpatient [address] [place] [address] Master Ugarte MD [address] [place] [phone] Discharge Disposition: Home or Self Care [...] package directions 1 Each 0 09/10/2013 5 [place]-3 Fatty Acids-Vitamin E (FISH OIL) 1,000 mg cap Take 1,000 mg by mouth 2 times daily. 5 oxyCODONE (ROXICODONE) 5 mg immediate release tablet Take 10 mg by mouth every 4 hours. 6 prochlorperazine (COMPAZINE) 10 mg tablet Take 1 Tab by mouth every 6 hours as needed for Nausea. 10 Tab 2 09/29/2012 5 PROPRANOLOL HCL (PROPRANOLOL ORAL)Indications :migraine Take 120 mg by mouth daily 9 [...] & Physical Date: 01/18/2015 Time: 8:04 Location: [address] Planned Procedure: Gastroscopy Chief Complaint/Indications for [...] follow package directions 1 Each 0 ??? [place]-3 Fatty Acids-Vitamin E (FISH OIL) 1,000 mg [...] & Physical Date: 01/18/2015 Time: 7:58 Location: [address] Planned Procedure: Gastroscopy Chief Complaint/Indications for [...] follow package directions 1 Each 0 ??? S[place]-3 Fatty Acids-Vitamin E (FISH OIL) 1,000 mg [...] Fasting Time: Time of last liquid intake: 299 Date of Last Liquid Intake: 01/18/15 Time of last solid intake: 1999 Date of last solid intake: 01/17/15 Patient Appropriate Candidate for Planned Sedation?: Yes Albert Carney MD 01/18/2015 7:58 Cosigned by Master Ugarte MD at 01/22/2015 14:48 EDT documented in this encounter Plan of Treatment Upcoming Encounters Date Type Department Care Team (Late st Contact Info) Description 09/18/2024 11:00 EST Office Visit [facility] Bariatric Surgery - [place] [address] [place] [address] Allen Thompson PALizettC [address] [place] [address], [facility] 5 [place] [phone] 10/26/2024 10:45 EST Telemedicine [facility] Neurology - [address] [address] Sulema Nicole, BEAM DYER RECESSED VAT 1 [facility], Level 2 [place] [address] documented as of this encounter Procedures Procedure Name Priority Date/Time Associated Diagnosis Comments PROCEDURE REPORTS - SCANNED 01/19/2015 0:36 EDT documented in this encounter Results * PROCEDURE REPORTS - SCANNED (01/19/2015 0:36 EDT) 01/19/2015 0:36 EDT us Scan 2 Cost Consultant PROCEDURE/MINOR SURGICAL OR DERABLES Final Result documented in this encounter Visit [...] may reflect changes made after this encounter. PROPRANOLOL HCL (PROPRANOLOL ORAL)Indications: migraine Take 120 mg by mouth daily 01/28/2019 [...] 01/18/2015 documented in this encounter Care Teams Certification Engineer Relationship Specialty Start Date End Date Juma Herrera MD [address] [facility] [place] [phone] PCP - General 09/25/12 12/07/18 documented as of this encounter
--- OUTSIDE RECORDS SUMMARY | 2024-09-17 09:14 | XMS_ITS | Encounter Summary ---
Author Organization [facility] Address [address] [place] [address] Care Team Providers Care Jewelry Setter Name Role Phone Juma Herrera MD Primary Care Provider Reason for Visit * Reason Onset Date Comments Appointment Related 01/14/2015 Encounter Details Date Type Department Care Team (Late st Contact Info) Description 01/14/2015 Telephone [facility] Bariatric Surgery - [place] 353 [place] [address] Master Ugarte MD [address] [place] [phone] Appointment Related Social History Tobacco Use [...] Registration on the third floor at the [facility] at 7:00am (ONE HOUR priorto [...] [facility] Bariatric Surgery - [place] [address] [place] [address] Allen Thompson, PA-C [address] [facility] 5 [place] [phone] 10/26/2024 10:45 EST Telemedicine [facility] Neurology - [address] [phone] Sulema Nicole, ACCOUNT COLLECTOR 1 [facility] 2 [place] [phone] documented as of this encounter Visit Diagnoses Not on filedocumented in this encounter Care Teams Jewelry Setter Relationship Specialty Start Date End Date Juma Herrera MD [address] [facility] [place] [phone] PCP - General 09/25/12 12/07/18 documented as of this encounter
--- OUTSIDE RECORDS SUMMARY | 2024-09-17 09:14 | XMS_ITS | Encounter Summary ---
Author Organization [facility] Address [address] [place] [address] Care Team Providers Care Paper Cone Grader Name Role Phone Juma Herrera MD Primary Care Provider [phone] Reason for Visit * Reason Onset Date Comments Other 10/25/2014 patient said her counseler hasn't heard from Yamilka. Patient would like a call. Encounter Details Date Type Department Care Team (Late st Contact Info) Description 10/25/2014 Telephone [facility] Bariatric Surgery - [place] [address] [place], [place] [phone] Yamilka Oneal, PhD [address] [place] [phone] Other (patient said her counseler hasn't [...] Telephone Encounter - Shweta Garcia - 10/25/2014 1603 EST Spoke with Tia, she was advised that Dr. Oneal was out town, she was offered to leave a message on Dr. Gaines voice mail documented in this encounter Plan of Treatment Upcoming Encounters Date Type Department Care Team (Late st Contact Info) Description 09/18/2024 11:00 EST Office Visit [facility] Bariatric Surgery - [place] [address] [place] [address] Allen Thompson PA-C 111 [facility] Level 5 [place] [phone] 10/26/2024 10:45 EST Telemedicine [facility] Neurology - [address] [address] Sulema Nicole, PLUMBER AND TINNER 1 [facility] Level 2 [place] [phone] documented as of this encounter Visit Diagnoses Not on filedocumented in this encounter Care Teams Paper Cone Grader Relationship Specialty Start Date End Date Juma Herrera MD [address] [place] [phone] PCP - General 09/25/12 12/07/18 documented as of this encounter
--- OUTSIDE RECORDS SUMMARY | 2024-09-17 09:14 | XMS_ITS | Encounter Summary ---
Author Organization [facility] Address [address] [place] [address] Care Team Providers Care Blasting Clay Miner Name Role Phone Juma Herrera MD Primary Care Provider [phone] Reason for Referral * PT/OT/ST (Routine) - Closed Specialty Diagnoses / Procedures Referred By Wili mireles Referred To Contact Diagnoses Right knee pain Petey Pat Referral ID Status Reason Start Date Expiration Date V isits Requested Visits Authorized [id number] Closed Specialty Services Required 01/21/2015 1 1 Question Answer Reason for Request: right knee arthritis, pfps Comments pfps modalites, low impact exercise program. Reason for Visit * Reason Comments Knee Pain right * Consult (Routine) - Closed Specialty Diagnoses / Procedures Referred By Wili t Referred To Contact Orthopedic Surgery Diagnoses Cervical radiculopathy Juma Herrera MD Phone: tel: fax: [facility] Sports Medicine Program [place] [address] Phone: tel: fax: Referral ID Status Reason Start Date Expiration Date Visits Re quested Visits Authorized [id number] Closed 1 1 Encounter Details Date Type Department Care Team (Late st Contact Info) Description 01/21/2015 10:00 EDT Office Visit [facility] Sports Medicine Program [place] [address] Petey Pat Right knee pain [...] 2 years. 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 [...] [facility] - [place] [address] [place] [address] Allen Thompson PA-C 111 [facility], Level 5 [place] [phone] 10/26/2024 10:45 EST Telemedicine [facility] Neurology - [address] [phone] Sulema Nicole NP [address] [place] [address] Level 2 [place] [address] Scheduled Referrals Name Type Priority Associated Diagnoses Orde r Schedule AMB CONS/FOLLOW UP PHYSICAL THERAPY Outpatient Referral Routine Right knee pain Ordered: 01/21/2015 documented as of this encounter Visit Diagnoses Diagnosis Right knee pain- Primary Pain in joint, lower leg documented in this encounter Care Teams Blasting Clay Miner Relationship Specialty Start Date End Date Juma Herrera MD [address] [facility] [place] [phone] PCP - General 09/25/12 12/07/18 documented as of this encounter
--- OUTSIDE RECORDS SUMMARY | 2024-09-17 09:14 | XMS_ITS | Encounter Summary ---
Author Organization [facility] Address [address] [place] [address] Care Team Providers Care Performance Improvement Specialist Name Role Phone Juma Herrera MD Primary Care Provider [phone] Reason for Referral * Consult, Test and Treat (Routine) - Specialty Report Received Specialty Diagnoses / Procedures [facility] Referred To Contact Diagnoses GERD (gastroesophageal reflux disease) Procedures UPPER ENDOSCOPY Master Ugarte MD Phone: tel: fax: Cheng Lamar MD Phone: tel: fax: Referral ID Status Reason Start Date Expiration Date V isits Requested Visits Authorized [id number] Specialty Report Received 01/28/2015 1 1 Reason for Visit * Reason Comments Obesity Pre Op F/U EGD and E sophagram Encounter Details Date Type Department Care Team (Late st Contact Info) Description 01/28/2015 9:[address] [facility] Bariatric Surgery - [address] [address] Master Ugarte MD [address] [place] [phone] GERD (gastroesophageal reflux disease) (Primary Dx) [...] surgery: Gastric Sleeve/Gastric Bypass Subjective: Food logs: [employer] Meal pattern:3 melas Average caloric intake:1300 to [...] Description 09/18/2024 11:[address] [facility] Bariatric Surgery - [place] [address] [place] [address] Allen Thompson, PA-C 111 [facility] 5 [place] [phone] 10/26/2024 10:[address] [facility] Neurology - [address] [phone] Sulema Nicole NP [address] [place] [address] 2 [place] [phone] Scheduled Orders Name Type Priority Associated Diagnoses Orde r Schedule UPPER ENDOSCOPY GI Routine GERD (gastroesophageal reflux disease) Ordered: 01/28/2015 documented as of this encounter Visit Diagnoses Diagnosis GERD (gastroesophageal reflux disease)- Primary Esophageal reflux documented in this encounter Care Teams Performance Improvement Specialist Relationship Specialty Start Date End Date Juma Herrera MD [address] [facility] [place] [phone] PCP - General 09/25/12 12/07/18 documented as of this encounter
--- OUTSIDE RECORDS SUMMARY | 2024-09-17 09:14 | XMS_ITS | Encounter Summary ---
Author Organization [facility] Address [address] [place] [address] Care Team Providers Care Park Aide Name Role Phone Juma Hererra MD Primary Care Provider [phone] Reason for Visit * Reason Onset Date Comments Prior Auth, Medication 08/31/2015 Needs brandon or authorization for Zofran and Prilosec. Encounter Details Date Type Department Care Team (Late st Contact Info) Description 08/31/2015 Telephone [facility] Bariatric Surgery [facility] [address] [place] [address] Master Ugarte MD [address] [place] [address] Prior Auth, Medication (Needs prior [...] of this encounter Ordered Prescriptions Prescription Sig Dispense Quantity Refills Last Filled Start Date End Date prochlorperazine (COMPAZINE) 10 mg tabletIndications: S/P laparoscopic sleeve gastrectomy,Gastro esophageal reflux disease without esophagitis Take 1 Tab by mouth every 6 hours as needed for Nausea 60 Tab 0 08/31/2015 omeprazole (PRILOSEC) 20 mg capsuleIndications :S/P laparoscopic sleeve gastrectomy,Gastro esophageal reflux disease without esophagitis Take 2 Caps by mouth daily 60 Cap 3 08/31/2015 09/22/2021 documented in this encounter Miscellaneous Notes * Telephone Encounter - Mary Rosales RN - 08/31/2015 6833 EST Patients insurance will not cover zofran or omeprazole 40mg capsules. New scripts called in for compazine and omeprazole 20mg capsules. Orders placed per bariatric refill protocol. E-script sent to [facility]. documented in this encounter Plan of Treatment Upcoming Encounters Date Type Department Care Team (Late st Contact Info) Description 09/18/2024 11:00 EST Office Visit [facility] Bariatric Surgery - [address] [address] Allen Thompson PA-C 111 [facility] 5 [place] [phone] 10/26/2024 10:45 EST Telemedicine [facility] Neurology - [address] [address] Sulema Nicole NP 1 [facility] Level 2 [place] [phone] documented as of this encounter Visit Diagnoses [...] documented as of this encounter Care Teams Park Aide Relationship Specialty Start Date End Date Juma Herrera MD [address] [facility] [place] [phone] PCP - General 09/25/12 12/07/18 documented as of this encounter
--- OUTSIDE RECORDS SUMMARY | 2024-09-17 09:14 | XMS_ITS | Encounter Summary ---
Author Organization [facility] Address [address] [place] [address] Care Team Providers Care Android Architect Name Role Phone Juma Herrera MD Primary Care Provider [phone] Reason for Visit * Reason Comments Obesity #2 Encounter Details Date Type Department Care Team (Late st Contact Info) Description 04/21/2015 14:00 EDT Office Visit [facility] Bariatric Surgery [address] [place], [place] [address] Allen Thompson, PA-C [address] [place] [address], Level [address] [place] [address] Morbid obesity with BMI of [...] PA - 04/21/2015 1534 EDT Juma Herrera [address] [place] [address] Herrera : Thank you for [...] does not wake up refreshed (sleeps poorly) Emerson scale = 5 Renal: No dysuria or [...] per week. Tia met with our program rippler for 30 minutes to review preoperative dietary recommendations. She has lost almost 40 pounds since starting in our program and she understands she has made her weight loss goal for surgery. I did consult our rippler following her visit with the patient and [...] Yours, MARGARITA Gomez CC: * Lux Dumont - 04/21/2015 1425 EDT Medical Nutrition Evaluation-PRE OP NOTE Bariatric Clinic Nutrition Pre-op Visit Visit Number: 4 Desired surgery: Gastric Sleeve Subjective: Its very hard to keep the food logs, exercise and lose weight. I have not been eating breakfast because it has been too hot. I am trying to drink [place] milk but I know it is low in protein Food logs: [place] Meal pattern: keeping food logs inconsistently Average [...] System [facility] Bariatric Surgery - [place] [address] [place], [place] [phone] Allen Thompson PA-C 111 [facility] 5 [place] [phone] 10/26/2024 10:45 EST Telemedicine [facility] Neurology - [address] [place] [address] [place], [place] [phone] Sulema Nicole NP 1 [facility] 2 [place] [address] documented as of this encounter Results * TSH (04/21/2015 15:08 EDT) TSH 0.51 0.35 - 5.00 uIU/ml 04/21/2015 20:25 EDT [facility] Blood specimen (specimen) BLOOD SPECIMEN / Unknown 04/21/2015 15:08 EDT 04/21/2015 17:46 EDT us Allen Thompson PA-C CHEMISTRY & BLOOD GA S ORDERABLES Final Result [facility] [address] [place] [address] * (ABNORMAL) VITAMIN D (25,OH) (04/21/2015 15:08 EDT) 25OH Vitamin D Tot 26.6(L) 30 - 100 ng/ml 04/22/2015 13:39 T [facility] Comment: Reference Range: Deficient = <10 ng/ml Insufficient = 10-30 ng/ml Sufficient = 30-100 ng/ml Toxic = >100 ng/ml Blood specimen (specimen) BLOOD SPECIMEN / Unknown 04/21/2015 15:08 EDT 04/21/2015 17:46 EDT Allen Thompson PA-C CHEMISTRY & BLOOD GA S ORDERABLES Final Result [facility] [address] [place] [phone] * (ABNORMAL) HEPATIC FUNCTION PANEL (ALB,ALK PHOS,ALT,AST,DBIL,TOT GILBERTO,TOT PROT) (04/21/2015 15:08 EDT) Pathologist [facility] Albumin 3.8 3.4 - 4.9 g/dl 04/21/2015 19:18 [facility] Total Protein 6.4 6.3 - 8.2 g/dl 04/21/2015 19:18 [facility] Total Alkaline Phosphatase 56 38 - 126 U/L 04/21/2015 19:18 [facility] ALT 21 <53 U/L 04/21/2015 19:18 [facility] AST 14(L) 15 - 46 U/L 04/21/2015 19:18 [facility] Unconjugated Bilirubin 0.0 0.0 - 1.1 mg/dl 04/21/2015 19:18 [facility] Conjugated Bilirubin 0.0 0.0 - 0.3 mg/dl 04/21/2015 19:18 [facility] Bilirubin, Total <0.5 <1.4 mg/dl 04/21/20 19:18 [facility] Blood specimen (specimen) BLOOD SPECIMEN / Unknown 04/21/2015 15:08 EDT 04/21/2015 17:46 EDT us Allen Thompson PA-C CHEMISTRY & BLOOD GA S ORDERABLES Final Result [facility] [address] [place] [address] * HEMOGLOBIN A1C (04/21/2015 15:08 EDT) Hemoglobin A1C 5.4 % 04/22/2015 10:28 EDT [facility] Comment: Reference Range: <5.7% Normal 5.7-6.4% Increased risk for diabetes =>6.5% Diagnostic for diabetes (if confirmed) The A1c goal for non adults in general is <7%. The A1c goal for selected patients may be significantly lower than 7% if this can be achieved without significant hypoglycemia or other adverse effects of treatment. Est Avg Glucose 108 mg/dl 5 10:28 EDT [facility] Comment: eAG represents the A1c result expressed as average glucose in mg/dl. Blood specimen (specimen) BLOOD SPECIMEN / Unknown 04/21/2015 15:08 EDT 04/21/2015 17:46 EDT us Allen AVILA-C CHEMISTRY & BLOOD GA S ORDERABLES Final Result Performing Organization Address [facility] Co de Phone Number [facility] [address] [place] [address] * FERRITIN (04/21/2015 15:08 EDT) Ferritin 32 10 - 291 ng/mL 04/21/2015 20:17 EDT [facility] Blood specimen (specimen) BLOOD SPECIMEN / Unknown 04/21/2015 15:08 EDT 04/21/2015 17:46 EDT us Allen AVILA-C CHEMISTRY & BLOOD GA S ORDERABLES Final Result [facility] [address] [place] [address] * CREATININE (04/21/2015 15:08 EDT) Creatinine 0.68 0.52 - 1.04 mg/dl 04/21/2015 19:18 T [facility] GFR, Calculated 109 >60 ml/min/1.7 3m2 04/21/2015 19:18 T [facility] Comment: eGFR calculated using CKD-EPI equation for non Americans. Multiply eGFR by 1.16 for Americans. Blood specimen (specimen) BLOOD SPECIMEN / Unknown 04/21/2015 15:08 EDT 04/21/2015 17:46 EDT us Allen Thompson PA-C CHEMISTRY & BLOOD GA S ORDERABLES Final Result [facility] [address] [place] [address] * (ABNORMAL) HEMAGRAM (04/21/2015 15:08 EDT) WBC 9.60 4.0 - 12.4 K/cmm 04/21/2015 18:04 [facility] RBC 4.81 3.86 - 5.04 M/cmm 04/21/2015 18:04 [facility] Hemoglobin 14.4 11.6 - 15.2 gm/dl 04/21/2015 18:04 [facility] HCT 42.9 34.9 - 44.4 % 04/21/2015 18:04 [facility] MCV 89 81 - 98 fl 04/21/2015 18:04 [facility] MCH 30.1 26.7 - 33.3 pg 04/21/2015 18:04 [facility] MCHC 33.7 32.1 - 35.9 gm/dl 04/21/2015 18:04 [facility] RDW-CV 14.6 11.7 - 14.6 % 04/21/2015 18:04 [facility] RDW-SD 45.5 37.6 - 50.3 fl 04/21/2015 18:04 [facility] PLT 330(H) 141 - 320 K/cmm 04/21/2015 18:04 EDT [facility] MPV 8.9 7.5 - 11.2 fl 04/21/2015 18:04 EDT [facility] Blood specimen (specimen) BLOOD SPECIMEN / Unknown 04/21/2015 15:08 EDT 04/21/2015 17:46 EDT us Allen Thompson PA-C HEMATOLOGY & PF4 ORD ERABLES Final Result Performing Organization Address City/[facility] Co de Phone Number [facility] [address] [place] [address] * VITAMIN B12 (04/21/2015 15:08 EDT) Vitamin B-12 352 211 - 911 pg/ml 04/21/2015 20:17 EDT [facility] Blood specimen (specimen) BLOOD SPECIMEN / Unknown 04/21/2015 15:08 EDT 04/21/2015 17:46 EDT us Allen Thompson PA-C CHEMISTRY & BLOOD GA S ORDERABLES Final Result Performing Organization Address [facility] Co de Phone Number [facility] [address] [place] [address] documented in this encounter Visit Diagnoses Diagnosis Morbid obesity with BMI of 45.0-49.9, adult ([facility])- Primary Morbid obesity documented in this encounter Historical Medications * This list may reflect changes made after this encounter. LORazepam (ATIVAN) 0.5 mg tablet Take 0.5 mg by mouth at bedtime. 05/17/2022 added in this encounter Care Teams Android Architect Relationship Specialty Start Date End Date Juma Herrera MD [address] [place] [phone] PCP - General 09/25/12 12/07/18 documented as of this encounter
--- OUTSIDE RECORDS SUMMARY | 2024-09-17 09:14 | XMS_ITS | Encounter Summary ---
Author Organization [facility] Address [address] [place] [address] Care Team Providers Care Stull Installer Name Role Phone Alejandra Trevino MD Primary Care Provider [phone] Encounter Details Date Type Department Care Team (Late st Contact Info) Description 05/06/2014 Results Only [facility] Laboratory Services - [facility] ([facility] [address] [place] [phone] Dariela Stiles MD [address] [place] [address] [place] [address] Social History Tobacco Use Types Packs/Day Years [...] Visit [facility] Bariatric Surgery - [address] [phone] Allen Thompson, PALizettC 111 [facility], Level [address] [place] [phone] 10/26/2024 10:45 EST Telemedicine [facility] Neurology - [address] [place] [address] [place], [place] [address] Sulema Nicole, VICE PRESIDENT REGULATORY 1 [facility] [place], Level [address] [place] [address] documented as of this encounter [...] ? TIA HITCHCOCK ? Accession #: ? [id number] ? : ? 1975 (Age: 38) ??F [...] types 16,18,31,33,35, 39,45,51,52,56,58, 59,66, and 68 by executive director global brand marketing mediated amplification. Comments Document reviewed and electronically signed by: ? System Interface ? Report date: 05/14/2014 By the signature above, the attending physician certifies that he/she has personally conducted a gross and/or microscopic examination of the described specimens and rendered or confirmed the above diagnosis. End of Report [facility] 05/06/2014 05/07/2014 us Dariela Stiles MD PATHOLOGY ORDERABLES Final Resu lt [facility] [address] [place] [address] documented in this encounter Visit Diagnoses Not on filedocumented in this encounter Care Teams Stull Installer Relationship Specialty Start Date End Date Alejandra Trevino MD [address] [place] [phone] PCP - General 09/25/12 12/07/18 documented as of this encounter
--- OUTSIDE RECORDS SUMMARY | 2024-09-17 09:14 | XMS_ITS | Encounter Summary ---
Author Organization [facility] Address [address] [place] [address] Care Team Providers Care Pipe Or Steam Fitter Furnace Installer Name Role Phone Juma Herrera MD Primary Care Provider [phone] Reason for Visit * Reason Comments Obesity Pre Op F/U EGD with vladk Encounter Details Date Type Department Care Team (Late st Contact Info) Description 03/10/2015 14:15 EDT Office Visit [facility] Bariatric Surgery [facility] [address] [place], [place] [phone] Master Ugarte MD [address] [place] [address] Morbid obesity with BMI of 45.0-49.9, adult (CMS-HCC) ([facility]) (Primary Dx) Social History Tobacco Use [...] not to walk due to knees from MD. She is allowed to use stationary bike [...] test as biopsies were not done with edwardorik. Master Ugarte MD documented in this encounter Plan of Treatment Upcoming Encounters Date Type Department Care Team (Late st Contact Info) Description 09/18/2024 11:00 EST Office Visit [facility] Bariatric Surgery - [address] [address] Allen Thompson PA-C 111 [facility], Level [address] [place] [address] 10/26/2024 10:45 EST Telemedicine [facility] Neurology - [address] [address] Sulema Nicole NP [address] [place] [address] [address] [place] [phone] documented as of this encounter Visit Diagnoses Diagnosis Morbid obesity with BMI of 45.0-49.9, adult ([facility])- Primary Morbid obesity documented in this encounter Care Teams Pipe Or Steam Fitter Furnace Installer Relationship Specialty Start Date End Date Juma Herrera MD [address] [place] [phone] PCP - General 09/25/12 12/07/18 documented as of this encounter
--- OUTSIDE RECORDS SUMMARY | 2024-09-17 09:14 | XMS_ITS | Encounter Summary ---
Author Organization [facility] Address [address] [place] [address] Care Team Providers Care Tobacco Blender Name Role Phone Juma Herrera MD Primary Care Provider [phone] Reason for Referral * Radiology Services (Routine) - Closed Specialty Diagnoses / Procedures Referred By Wili t Referred To Contact Diagnoses GERD (gastroesophageal reflux disease) Procedures FL ESOPHAGRAM (BARIUM SWALLOW) Master Ugarte MD Phone: tel: fax: Referral ID Status Reason Start Date Expiration Date Visits Re quested Visits Authorized [id number] Closed 12/03/2014 1 1 * Consult, Test and Treat (Routine) - Closed Specialty Diagnoses / Procedures Referred By Wili mireles Referred To Contact Diagnoses GERD (gastroesophageal reflux disease) Procedures UPPER ENDOSCOPY MI ESOPHAGOGASTRODUODENOSCOPY TRANSORAL DIAGNOSTIC Master Ugarte MD Phone: tel: fax: Shanel Perez Room 8 fax: Referral ID Status Reason Start Date Expiration Date Visits Re quested Visits Authorized [id number] Closed 01/18/2015 1 1 Reason for Visit * Reason Comments Obesity OBE Encounter Details Date Type Department Care Team (Late st Contact Info) Description 12/03/2014 11:00 EDT Office Visit [facility] Bariatric Surgery - [place] [address] [place] [address] Master Ugarte MD [address] [place] [phone] GERD (gastroesophageal reflux disease) (Primary Dx) [...] The procedure will be performed at the [facility] ([facility]) located at [facility]. ??? Parking is available in the new parking garage. Please enter the garage using the [address] entrance. ??? From the garage, take the elevators to the 3rd floor to registration for check-in. They will direct you to the [facility]. We look forward to seeing you soon. If you have any questions, concerns or need to reschedule your procedure, please call us at [phone]. What is an Upper GI Endoscopy? Also [...] procedure time. When you arrive at the [facility] ([facility]), please: ??? Bring your medication list [...] Bring someone to drive you home. A auto carrier driver is not acceptable. Risks There is a small chance of perforation (hole) of the stomach, duodenum, or esophagus or bleeding atthe biopsy site. A patient could have an adverse reaction to the medication. The overall risk is less than 1 out of 2,500 people. After the procedure If any of these symptoms occur after the test, please contact our office at [phone]. ??? Difficulty swallowing ??? Fever or Pain [...] SOMEONE WHO CAN TAKE YOU HOME. A COMMERCIAL SERVICE TECHNICIAN IS NOT ACCEPTABLE. THE PROCEDURE WILL NOT [...] located on the 3rd floor of the [facility]. o They will direct you to the Endoscopy suite located on the 4th floor of the [facility] in the [facility] ([facility]). ??? You will be receiving intravenous [...] need to reschedule your procedure, please call [phone]. CLEAR LIQUID DIET What is it? You [...] need to reschedule your procedure, please call [phone]. Medication avoidance list This may not be [...] with Codeine Caplets/Tablets Nonprescription: Lortab ASA Tablets Jennifer-[place] Antacid Pain Reliever Magsal Tablets Jennifer-[place] Plus cold Preparations Pettis-Gesic Tablets Anacin Maximum Strength Tablets, Norgesic & [...] Ibuprofen Caplets/Tablets Mobigesic Analgesic Tablets Sine-Aid IB Canby Tablets Motrin IB Caplets/Tablets P-A-C Analgesic Tablets NAPROXEN SODIUM Pepto-Bismol Liquid/Tablets Naprosyn Suspension Tablets Sine-Off Tablets Aspirin Formula Anaprox/Anaprox DS Tablets ASPIRIN OR ASPIRIN-LIKE COMPOUNDS OTHER NON-STEROIDAL ANTI-INFLAMMATORIES Nonprescription Celecoxib (Celebrex) [facility] Adult Chewable Aspirin Diclofenac (Voltaren) Therapy Ish Caplets Etodolac (Lodine) Trigesic Indomethacin (Indocin) Ursinus Inlay-Tabs Ketoprofen (Orudis) Vanquish Analgesic Caplets Ketorolac (Toradol) Meloxicam (Mobic) Nabumetome (Relafen) Piroxicam (Feldene) Rofecoxib (Vioxx) Sulindac Valdecoxib (Bextra) Getting to the [facility] [place] [address] [place] [address] From the [place] and [facility] From the [place] area, take [address] to [facility] in [place]. Turn right onto [facility] (which becomes [facility]) and continue for approximately one mile. [facility]'s [place] is on your right. Once on the campus, stay on [address] and follow signs to the parking garage and main entrance. From [place] and [place] Take [address]. From the [place] Areas Take [address] to [address]. From the [place] Take [place]. [address]. Take [address]. (Alternate: [place]. Take [address] [facility] to [address] to [address].) From I- [address] through three traffic lights. Bear right onto [address] (marked by [facility] sign). Follow signs to parking garage [...] to Shedule a follow-up appt with our animal handler and our physician's product safety technical assistant, MARGARITA Stafford. We will obtain the results of the following: UGI and EGD. Tia Spain is an appropriate candidate for Gastric Bypass or Gastric Sleeve surgery pending test results.. For the next visit she was advised to come with her family. Seen and discussed with Sonar Watchstander at this visit. Master Ugarte MD 12/03/2014 [...] Info) Description 09/18/2024 11:00 EST Office Visit [facility] Bariatric Surgery - [place] [address] [place], [place] [address] Allen Thompson PA-C 111 [facility] 5 [place] [phone] 10/26/2024 10:45 EST Telemedicine [facility] Neurology - [address] [place] [address] [place], [place] [phone] Sulema Nicole NP [address] [place] [address] [address] [place] [phone] Scheduled Orders Name Type Priority Associated Diagnoses [...] ESOPHAGRAM ??01/18/2015 9:48 AM Clinical History/Comments: 530.81-Esophageal agdpjs-FMV-0-CM; gerd. Findings: ?? Esophagram Technique: Single and [...] ESOPHAGRAM 01/18/2015 9:48 AM Clinical History/Comments: 530.81-Esophageal eswydv-HTE-1-CM; gerd. Findings: Esophagram Technique: Single and double-contrast [...] evidence of hiatal hernia. Impression: Normal study. us Master Ugarte MD IMG FLUOROSCOPY VENKATESH DEL CID Final Result documented in this encounter Visit Diagnoses Diagnosis GERD (gastroesophageal reflux disease)- Primary Esophageal reflux documented in this encounter Care Teams Tobacco Blender Relationship Specialty Start Date End Date Juma Herrera MD [address] [facility] [place] [phone] PCP - General 09/25/12 12/07/18 documented as of this encounter
--- OUTSIDE RECORDS SUMMARY | 2024-09-17 09:14 | XMS_ITS | Encounter Summary ---
Author Organization [facility] Address [address] [place] [address] Care Team Providers Care Carroting Machine Offbearer Name Role Phone Juma Herrera MD Primary Care Provider [phone] Reason for Visit * Reason Onset Date Comments Appointment Related 09/01/2015 Encounter Details Date Type Department Care Team (Late st Contact Info) Description 09/01/2015 Telephone [facility] General Surgery - [place] [address] [place], [place] [phone] Master Ugarte MD [address] [place] [phone] Appointment Related Social History Tobacco Use [...] Telephone Encounter - Dayna Garcia - 09/01/2015 1600 EST Called Tia to confirm surgery check-in time with Dr. Ugarte. Surgery is scheduled on 09/05/15 at7:25 am please check-in with Registration on the third floor at the [facility] at 6:00 am documented in this encounter Plan of Treatment Upcoming Encounters Date Type Department Care Team (Late st Contact Info) Description 09/18/2024 11:00 EST Office Visit [facility] Bariatric Surgery - [place] [address] [place], [place] [address] Allen Thompson PALizettC 111 [facility], Level 5 [place] [address] 10/26/2024 10:45 EST Telemedicine [facility] Neurology - [address] [address] Sulema Nicole NP [address] [place] [address] [address] [place] [phone] documented as of this encounter Visit Diagnoses Not on filedocumented in this encounter Care Teams Carroting Machine Offbearer Relationship Specialty Start Date End Date Juma Herrera MD [address] [facility] [place] [phone] PCP - General 09/25/12 12/07/18 documented as of this encounter
--- OUTSIDE RECORDS SUMMARY | 2024-09-17 09:14 | XMS_ITS | Encounter Summary ---
Author Organization [facility] Address [address] [place] [address] Care Team Providers Care Joggle Press Operator Name Role Phone Juma Herrera MD Primary Care Provider [phone] Encounter Details Date Type Department Care Team (Late st Contact Info) Description 02/10/2015 10:29 EDT - 02/10/2015 12:30 EDT Hospital Encounter [facility] Endoscopy - [address] [address] Cheng Lamar MD [address] [place] [address], [address] [place] [address] Discharge Disposition: Home or Self [...] Info) Description 09/18/2024 11:00 EST Office Visit [facility] Bariatric Surgery - [address] [address] Allen Thompson PA-C [address] [facility] [address] [place] [phone] 10/26/2024 10:45 EST Telemedicine [facility] Neurology - [address] [phone] Sulema Nicole NP [address] [place] [address] 2 [place] [phone] documented as of this encounter Procedures Procedure Name Priority Date/Time Associated Diagnosis Comments PROCEDURE REPORTS - SCANNED 02/11/2015 0:36 EDT documented in this encounter Results * PROCEDURE REPORTS - SCANNED (02/11/2015 0:36 EDT) 02/11/2015 0:36 EDT us Scan 2 Eviction Specialist PROCEDURE/MINOR SURGICAL OR DERABLES Final Result documented [...] follow package directions Therapy completed 09/10/2013 02/03/2015 Monroe-3 Fatty Acids-Vitamin E (FISH OIL) 1,000 mg [...] 1120 (New Bag - Prov ider: Kari Amos, ALEXANDER)1222 (Completed - Provider: Zina Rosado RN) documented in this encounter Orders Medications Ordered That Jakob ht Not Have Been Administered Count Last Ordered Date First Ordered Date sodium chloride 0.9 % (NS) infusion 1 02/10 Transfer Count Last Ordered Date First Orde red Date NOTIFY PPS OF DISCHARGE COMPLETE 02/11/20 15 documented in this encounter Care Teams Joggle Press Operator Relationship Specialty Start Date End Date Juma Herrera MD [address] [facility] [place] [phone] PCP - General 09/25/12 12/07/18 documented as of this encounter
--- OUTSIDE RECORDS SUMMARY | 2024-09-17 09:14 | XMS_ITS | Encounter Summary ---
Author Organization [facility] Address [address] [place] [address] Care Team Providers Care [employer] Launch Commander Name Role Phone Juma Herrera MD Primary Care Provider [phone] Reason for Visit * Reason Onset Date Comments Results 07/09/2014 Encounter Details Date Type Department Care Team (Late st Contact Info) Description 07/09/2014 Telephone [facility] Interventional Pain [address] [place] [address] Korey Justice RN Results Social [...] - 07/09/2014 1108 EST Message copied by OKREY [employer]ICE on SatJul 09, 2014 1108 ------ Message from: RL FLEMING Created: [facility] Jul 08, 2014 9760 Regarding: result Contact: Facet Diagnostic Block done on: 07/08/14 Provider: alejandra Levels: niko martinez Call back number:[phone] ------ documented in this encounter Plan of Treatment Upcoming Encounters Date Type Department Care Team (Late st Contact Info) Description 09/18/2024 11:00 EST Office Visit [facility] Bariatric Surgery - [address] [address] Allen Thompson, PA-C 111 [facility] Level [address] [place] [phone] 10/26/2024 10:45 EST Telemedicine [facility] Neurology - [address] [address] Sulema Nicole NP [address] [place] [address] 2 [place] [phone] documented as of this encounter Visit Diagnoses Not on filedocumented in this encounter Care Teams [employer] Police Launch Commander Relationship Specialty Start Date End Date Juma Herrera MD [address] [place] [phone] PCP - General 09/25/12 12/07/18 documented as of this encounter
--- OUTSIDE RECORDS SUMMARY | 2024-09-17 09:14 | XMS_ITS | Encounter Summary ---
Author Organization [facility] Address [address] [place] [address] Care Team Providers Care Director Of Infection Prevention Name Role Phone Juma Herrera MD Primary Care Provider [phone] Reason for Visit * Reason Comments Obesity Class Encounter Details Date Type Department Care Team (Late st Contact Info) Description 05/16/2015 10:30 EDT Office Visit [facility] Bariatric Surgery [facility] [address] [place], [place] [phone] Yamilka Oneal, PhD [address] [place] [address] Unspecified episodic mood disorder (Primary Dx) Social [...] Description 09/18/2024 11:00 EST Office Visit [facility] Bariatric Surgery - [place] [address] [place], [place] [phone] Allen Thompson PA-C [address] [place] [address] 5 [place] [phone] 10/26/2024 10:45 EST Telemedicine [facility] Neurology - [address] [phone] Sulema Nicole, GIULIA [address] [place] [address] [address] [place] [phone] documented as of this encounter Visit Diagnoses Diagnosis Unspecified episodic mood disorder- Primary documented in this encounter Care Teams Director Of Infection Prevention Relationship Specialty Start Date End Date Juma Herrera MD [address] [place] [phone] PCP - General 09/25/12 12/07/18 documented as of this encounter
--- OUTSIDE RECORDS SUMMARY | 2024-09-17 09:14 | XMS_ITS | Encounter Summary ---
Author Organization [facility] Address [address] [place] [address] Care Team Providers Care Discovery Guide Name Role Phone Alejandra Trevino MD Primary Care Provider [phone] Reason for Referral * (Routine) - Closed Specialty Diagnoses / Procedures Referred By Contac t Referred To Contact Allen Thompson PA-C Phone: tel: fax: Referral ID Status Reason Start Date Expiration Date V isits Requested Visits Authorized [id number] Closed Specialty Services Required 09/07/2015 1 1 Comments Follow up with Master Potts MD in 1 week for staple and drain removal. Please call [phone]. * (Routine) - Closed Specialty Diagnoses / Procedures Referred By Contac t Referred To Contact Allen Thompson PA-C Phone: tel: fax: Referral ID Status Reason Start Date Expiration Date V isits Requested Visits Authorized [id number] Closed Specialty Services Required 09/07/2015 1 1 [...] mireles Referred To Contact Allen Thompson PA-C Phone: tel: fax: Referral ID Status Reason Start Date Expiration Date V isits Requested Visits Authorized [id number] Closed Specialty Services Required 09/07/2015 1 1 [...] EST - 09/07/2015 12:17 EST Hospital Encounter [facility] General Surgery Unit [address] [place] [address] Master Potts MD [address] [place] [phone] Preop examination (Primary Dx); Morbid obesity with BMI of 40.0-44.9, adult (CMS-HCC) ([facility]); Depression; GERD without esophagitis Discharge Disposition: Home [...] 09/07/2015 09 EST Respiratory Rate 14 09/07/2015 09 EST Oxygen Saturation 93% 09/07/2015 09 EST Inhaled Oxygen Concentration - - Weight [...] Khoa Peñaloza documented in this encounter Discharge Summaries * Allen Thompson [...] CO2 28 09/06/2015 Discharge Summary Completed: 09/07/15 Cosigned by Master Potts MD at 09/07/2015 14:03 EST documented in this encounter Medications at Time [...] needed 2 documented as of this encounter Ordered Prescriptions Prescription Sig Dispense Quantity Refills Last Filled Start Date End Date pediatric multivitamin (JUAN [...] 4010 * Raymundo Rahman MD - 09/07/2015 9007 EST Surgery Daily Progress Note Patient: Tia [...] advance per pathway. CLD today. ?? D/c PACKAGING TECH. PO pain meds today. ?? Ambulate TID ?? Aggressive IS ?? Monitor and record drain output -Drain teaching for patient, will go home with ?? Likely discharge today DVT Prophylaxis: Ambulate, SCD's, SQ Heparin TID Raymundo Rahman MD 09/07/2015 7:28 Pager #[phone] * Mary Feldman - 09/06/2015 1139 EST Initial Case Management/Social Work Assessment and Discharge Plan/Readmission Risk Assessment Reason for Admission: Lap sleeve gastrectomy Patient Contact Information: Clarissa Moon, LIVING ARRANGEMENTS AND ACCESSIBILITY ISSUES: Lives in home in [facility] What in home social supports are available to the patient? family/friends ADVANCED DIRECTIVES, POA &/or COLST IN PLACE: Yes LW; DPOA CULTURAL, SIKH and/or LANGUAGE factors affecting health care/discharge planning: [...] Feldman RN CM 4010 * Cara Blanc, GIULIA - 09/06/2015 0742 EST Surgery Daily Progress [...] TID Cara Blanc NP 09/06/2015 7:42 Pager #[phone] * Olivia Murphy MD - 09/05/2015 9113 EST Surgery Post Op Check Admit Date: 09/05/2015 Hospital Day: LOS: 0 days Date of Service: 09/05/2015 Procedure: lap sleeve gastrectomy Complications: none Subjective/ROS: Pain controlled with PACKAGING TECH. Feels sore. Had some nausea but resolved, [...] floor on pathway. Plan: Pain control with PACKAGING TECH NPO Upper GI tomorrow- advance diet as appropriate Mi out tomorrow Post-sleeve Pathway Olivia Murphy MD 09/05/2015 17:54 Surgery, PGY1 p1940 * Mahogany Deleon RN - 09/05/2015 1042 EST 1040: Pt appears to be resting quietly, in no distress, VSS. Yet pt reports pain 9/10, some ongoingnausea. Pt encouraged to use dilaudid PACKAGING TECH.Surgical sites CDI, RUQ MELANIE draining sm amt [...] OR for above MARGARITA Gomez 09/05/2015 7:23 Cosigned by Master Potts MD at 09/05/2015 9:29 EST documented in this encounter OR Notes * OR Surgeon - Master Potts MD - 09/19/2015 0802 EST OPERATIVE REPORT SERVICE DATE: 09/05/2015 PREOPERATIVE DIAGNOSIS: Morbid obesity. POSTOPERATIVE DIAGNOSIS: Morbid obesity. PROCEDURE: Laparoscopic sleeve gastrectomy using a 44-Afghan bougie. SURGEON: Master Ptots MD LAUNDRY WASHER: Laura Hull MD, FACS; no qualified resident to first sampler in the case. ANESTHESIA: INDICATIONS: Morbidly obese [...] GE junction with a Harmonic scalpel. A 44-Afghan bougie was passed transorally under direct vision [...] Endocatch bag, thearea was irrigated again. A 19-Afghan Chaz drain was placed in the subhepatic [...] AM / Master Potts MD jn Confirmation: [id number] Dictation ID: [id number] documented in this encounter Miscellaneous Notes * [...] Pt states pain is controlled with Dilaudid PACKAGING TECH. Pt has lots of anxiety related to care. Action: Encouraged ambulation overnight. Pt continues to use PACKAGING TECH button. Provided emotional supportand answered questions. Response: Pt sleeping throughout night. Will monitor Hortencia Franz RN 09/07/2015 1:42 * Plan of Care - Valente Hernandez - 09/06/2015 1329 EST Problem: Daily Care Plan Goals Goal: Care Plan Documentation Data: Patient rating pain at a 7/10 upon assumption of care. NPO. IVF and Dilaudid PACKAGING TECH infusing. Mi removed. DTV at 1245. Action: Patient off the unit to upper GI. No leaks shown, diet advanced to 60cc/hour. Pain tolerable with the dilaudid PACKAGING TECH. Encouraged patient to get OOB and ambulate. [...] Care - Vanesa Fonseca RN - 09/06/2015 0537 EST Problem: Daily Care Plan Goals Goal: Care Plan Documentation Outcome: Ongoing 09/05/15 2305 Care Plan Focus Area of Focus Pain/ Comfort Goal This Shift pts pain will be managed overnight Data: Pt rating pain 6-9/10 in abdomen. Action: Monitored/encouraged dilaudid PACKAGING TECH usage. Assisted pt oob to ambulate in [...] pain at a 9.5/10. IVF and Dilaudid PACKAGING TECH infusing. Strict NPO. Mi catheter in place draining clear yellow urine. Requesting to get some candy or icechips. Action: Cleared PACKAGING TECH Q2 hours. Instructed to patient the importance [...] on unit at noon. Rates pain 9/10 PACKAGING TECH dilaudid used multiple times. Oriented to unit.C/o itching Action: Toradol, 0.4 IV dilaudid breakthrough, given for pain. Benadryl given for itch. Response: Pt resting in bed with back public opinion survey taker. Family at bedside. Reports pain better. Will monitor Yola Jravis RN 09/05/2015 15:21 * Anesthesia Post-Eval - Marques Arellano MD - 09/05/2015 [...] Note - Allen Thompson PA - 09/05/2015 0988 EST Brief Post-Op Note Date of Surgery: 09/05/2015 Surgeon: MD Shanel Assistants: MD Della; Chutter-Cressy, PA-C Pre-Op Diagnosis: morbid obesity Post-Op Diagnosis: same [...] Info) Description 09/18/2024 11:00 EST Office Visit [facility] Bariatric Surgery - [place] [address] [place] [address] Allen Thompson, PA-C [address] [facility] [address] [place] [phone] 10/26/2024 10:45 EST Telemedicine [facility] Neurology - [address] [phone] Sulema Nicole NP [address] [place] [address] [address] [place] [phone] Scheduled Referrals Name Type Priority Associated Diagnoses [...] Morbid obesity with BMI of 40.0-44.9, adult ([facility]) ([facility]) Depression GERD without esophagitis TYPE AND SCREEN STAT 09/05/2015 5:54 EST Preop examination Morbid obesity with BMI of 40.0-44.9, adult ([facility]) ([facility]) Depression GERD without esophagitis ECG REPORT - SCANNED 08/30/2015 8:38 EST documented in this encounter Results * ECG REPORT - SCANNED (09/12/2015 10:16 EST) 09/12/2015 10:1 6 EST us Scan 2 [place] Curer PROCEDURE/MINOR SURGICAL OR DERABLES Final Result * FL UGI WO AIR WO KUB [...] while in multiple positions including PA, VILLALTA, MOLDOVAN, and left lateral position. Following this, the patient drank thin barium while in multiple positions including PA, VILLALTA, MOLDOVAN, and left lateral position. A final radiograph [...] while in multiple positions including PA, VILLALTA, MOLDOVAN, and left lateral position. Following this, the patient drank thin barium while in multiple positions including PA, VILLALTA, MOLDOVAN, and left lateral position. A final radiograph [...] with the findings. Allen Thompson PA-C IMG FLUOROSCOPY VENKATESH DEL CID Final Result * MAGNESIUM (09/06/2015 5:41 EST) Magnesium 2.0 1.7 - 2.8 mg/dl 09/06/2015 6:34 EST [facility] Blood specimen (specimen) BLOOD SPECIMEN / Unknown 09/06/2015 5:41 EST 09/06/2015 5:56 EST us Allen Thompson PA-C CHEMISTRY & BLOOD GA S ORDERABLES Final Result Performing Organization Address City/[facility]/ZIP Co de Phone Number [facility] [address] [place] [address] * (ABNORMAL) HEMAGRAM (09/06/2015 5:41 EST) WBC 16.73(H) 4.0 - 12.4 K/cmm 09/06/2015 6:11 [facility] RBC 4.18 3.86 - 5.04 M/cmm 09/06/2015 6:11 [facility] Hemoglobin 12.4 11.6 - 15.2 gm/dl 09/06/2015 6:11 [facility] HCT 37.6 34.9 - 44.4 % 09/06/2015 6:11 [facility] MCV 90 81 - 98 fl 09/06/2015 6:11 [facility] MCH 29.7 26.7 - 33.3 pg 09/06/2015 6:11 [facility] MCHC 33.1 32.1 - 35.9 gm/dl 09/06/2015 6:11 [facility] RDW-CV 13.7 11.7 - 14.6 % 09/06/2015 6:11 [facility] RDW-SD 43.3 37.6 - 50.3 fl 09/06/2015 6:11 [facility] PLT 278 141 - 320 K/cmm 09/06/2015 6:11 [facility] MPV 8.5 7.5 - 11.2 fl 09/06/2015 6:11 [facility] Blood specimen (specimen) BLOOD SPECIMEN / Unknown 09/06/2015 5:41 EST 09/06/2015 5:56 EST us Allen Thompson PA-C HEMATOLOGY & PF4 ORD ERABLES Final Result Performing Organization Address City/[facility]/ZIP Co de Phone Number [facility] [address] [place] [address] * ELECTROLYTES (09/06/2015 5:41 EST) Sodium 140 136 - 145 mEq/L 09/06/2015 6:34 [facility] Potassium 4.2 3.5 - 5.0 mEq/L 09/06/2015 6:34 [facility] Chloride 104 96 - 110 mEq/L 09/06/2015 6:34 [facility] CO2 28 24 - 32 mEq/L 09/06/2015 6:34 [facility] Blood specimen (specimen) BLOOD SPECIMEN / Unknown 09/06/2015 5:41 EST 09/06/2015 5:56 EST Allne Thompson PA-C CHEMISTRY & BLOOD GA S ORDERABLES Final Result Performing Organization Address [facility] Co de Phone Number [facility] [address] [place] [address] * CREATININE (09/06/2015 5:41 EST) Creatinine 0.67 0.52 - 1.04 mg/dl 09/06/2015 6:34 [facility] GFR, Calculated 109 >60 ml/min/1.7 3m2 09/06/2015 6:34 [facility] Comment: eGFR calculated using CKD-EPI equation for non Americans. Multiply eGFR by 1.16 for Americans. Blood specimen (specimen) BLOOD SPECIMEN / Unknown 09/06/2015 5:41 EST 09/06/2015 5:56 EST us Allen Thompson PA-C CHEMISTRY & BLOOD GA S ORDERABLES Final Result Performing Organization Address City/[facility]/ZIP Co de Phone Number [facility] [address] [place] [address] * BUN (09/06/2015 5:41 EST) BUN 13 10 - 26 mg/dl 09/06/2015 6:34 [facility] Blood specimen (specimen) BLOOD SPECIMEN / Unknown 09/06/2015 5:41 EST 09/06/2015 5:56 EST us Allen Thompson PA-C CHEMISTRY & BLOOD GA S ORDERABLES Final Result [facility] [address] [place] [address] * SURGICAL PATHOLOGY (09/05/2015 13:49 EST) Pathology [...] ??The serosa is ko-pink and smooth. Four compliance representative sections of the stomach are submitted as [address] Daly 09/05/2015 3:01 PM End of Report [facility] 09/05/2015 13:4 9 EST 09/05/2015 13:49 EST Master Potts MD PATHOLOGY ORDERABLES Final Result Performing Organization Address [facility] Co de Phone Number [facility] [address] [place] [address] * TYPE AND SCREEN (09/05/2015 5:54 EST) ABO A [facility] Rh Factor Positive [facility] Antibody Screen Negative [facility] Specimen Expires: 09/08/2015 @ 23:59 [facility] Blood specimen (specimen) 09/05/2015 5:54 EST Allen Thompson PA-C BLOOD BANK TESTS Fin al Result Performing Organization Address [facility] Co de Phone Number [facility] [address] [place] [address] * TEST, URINE (09/05/2015 5:54 EST) Result- Test, Ur Neg Neg 09/05/2015 6:31 EST [facility] Comment: NOTE: False negative results may occur in women who are beyond 5-8 weeks gestation. Diagnosis of should be based on a correlation of test results with typical clinical signs and symptoms. Urine specimen (specimen) URINE / Unknown 09/05/2015 5:54 EST 09/05/2015 6:08 EST Allen Thompson PA-C URINALYSIS ORDERABLE S Final Result [facility] [address] [place] [address] * ECG REPORT - SCANNED (08/30/2015 8:38 EST) 08/30/2015 8:38 EST us Scan 2 [place] Curer PROCEDURE/MINOR SURGICAL OR DERABLES Final Result documented in this encounter Visit Diagnoses Diagnosis Morbid obesity with BMI of 45.0-49.9, adult ([facility])- Primary Morbid obesity Preop examination Preoperative examination, unspecified Morbid obesity with BMI of 40.0-44.9, adult ([facility]) Morbid obesity Depression Depressive disorder, [...] Sat09/05/15 at 0645, Routine, Pre-Op DOS Rx ApprovedIndications:Preop examination,Morbid obesity with BMI of 40.0-44.9, adult ([facility]),Depression,GERD without esophagitis Given by Other 09/05/2015 8:00 EST 2 [...] Sat09/05/15 at 0645, Routine, Pre-Op DOS Rx ApprovedIndications:Preop examination,Morbid obesity with BMI of 40.0-44.9, adult ([facility]),Depression,GERD without esophagitis Given 09/05/2015 7:21 EST 5,000 Units heparin [...] EST 0.4 mg HYDROmorphone 1 mg/ml (DILAUDID) PACKAGING TECH syringe, 30 ml intravenous, PACKAGING TECH, Starting on Sat09/05/15 at 1015, Until Sat09/07/15 at 0726, See PRN bolus orders for breakthrough pain. CLICK to see order details, Routine, PACKAGING TECH Dose (mg): 0.2, Lockout Interval (minutes): 10, [...] Sat09/05/15 at 1225, Routine, Pre-Op DOS Rx ApprovedIndications:Preop examination,Morbid obesity with BMI of 40.0-44.9, adult ([facility]),Depression,GERD without esophagitis New Bag 09/05/2015 6:15 EST 25 mL/hr [...] may reflect changes made after this encounter. pediatric multivitamin (JUAN CHEW VIT) chewable tablet [...] Yes, Routine 1011 (Given - Provider: Mahogany Deleon, ALEXANDER) acetaminophen (TYLENOL) solution unit dose cup 650 mg 650 mg, oral, EVERY 4 HOURS, First dose on Sat09/07/15 at 0000, Until Discontinued, Routine, On Unit 2320 (Not Given - Provider: Hortencia Franz RN - Reason: Patient/family refused) 0402 (Given - Provider: Hortencia Franz RN)0808 (Given - Provider: Belkis Braun RN)1212 (Given - Provider: Belkis Braun RN) ceFAZolin [...] Hernandez) 0001 (Given - Provider: Vanesa Fonseca, RN) ceFAZolin (ANCEF) syringe 2 g (COMPLETED) [...] Hernandez)1845 (Canceled Entry - Provider: Kizzy Leiva RN)2008 (Given - Provider: Hortencia Franz, ALEXANDER) ketOROLAC (TORADOL) injection 30 mg (COMPLETED)(Linked Group 1) 30 mg, intravenous, NOW X1, 1 dose, On Sat09/05/15 at 1245, Routine, On Unit 1340 (Given - Provider: Yola Jarvis) lansoprazole (PREVACID SOLUTAB) disintegrating tablet 30 mg (CANCELED)(Linked Group 2) 30 mg, oral, DAILY, First dose on Sat09/07/15 at 0900, Until Discontinued, Routine, On Unit 0808 (Given - Provider: Belkis Braun, ALEXANDER) metoCLOPramide (REGLAN) injection 10 mg (COMPLETED) 10 mg, intravenous, EVERY 6 HOURS, 8 doses, First dose on Sat09/05/15 at 1245, Last dose on Sat09/07/15 at 0600, Routine, On Unit 1340 (Given - Provider: Yola Jarvis)1904 (Given - Provider: Valente Hernandez) 0001 (Given - Provider: Vanesa Fonseca, ALEXANDER)0618 (Given - Provider: Vanesa Fonseca, RN)1212 (Given - Provider: Valente Hernandez)1738 (Given - Provider: Kizzy Leiva, ALEXANDER)1900 (Canceled Entry - Provider: Kizzy Leiva, ALEXANDER) 0004 (Given - Provider: Hortencia Franz, ALEXANDER)0543 [...] Routine 2136 (Given - Provider: Vanesa Fonseca, ALEXANDER) Continuous Medication Order 09/05/2015 09/06/2015 09/07/2015 dextrose 5 % and 0.45 % NaCl with KCl 20 mEq/L infusion (CANCELED) 125 mL/hr, intravenous, CONTINUOUS, Starting on Sat09/05/15 at 1015, Until Sat09/07/15 at 0726, Routine, On Unit 1007 (New Bag - Provider: Mahogany Deleon, ALEXANDER)1321 (Rate Documented - Provider: Yola Jarvsi)1904 (New Bag - Provider: Valente Hernandez) 0350 (New Bag - Provider: Vanesa Fonseca RN)1213 (New Bag - Provider: Valente Hernandez)191 (Rate Documented - Provider: Hortencia Franz RN)2007 (New Bag - Provider: Hortencia Franz RN) 406 (New Bag - Provider: Hortencia Franz RN) HYDROmorphone 1 mg/ml (DILAUDID) PACKAGING TECH syringe, 30 ml (CANCELED) intravenous, PACKAGING TECH, Starting on Sat09/05/15 at 1015, Until Sat09/07/15 at 0726, See PRN bolus orders for breakthrough pain. CLICK to see order details, Routine, PACKAGING TECH Dose (mg): 0.2, Lockout Interval (minutes): 10, Maximum Limit (mg/hr): 1.2, On Unit 1028 (New Bag - Provider: Mahogany Deleon RN)1322 (Rate Documented - Provider: Yola Jarvis) 1230 (New Bag - Provider: Valente Hernandez)123 (Waste - Provider: Valente Hernandez - Comment: [...] Yola Jarvis)2136 (Given - Provider: Vanesa Fonseca, ALEXANDER) 2209 (Given - Provider: Hortencia Franz, ALEXANDER) 0549 (Given - Provider: Hortencia Franz, ALEXANDER) diphenhydrAMINE (BENADRYL) injection 6.25 mg (COMPLETED) 6.25 [...] Recovery (only) 0944 (Given - Provider: Mahogany Dleeon RN)0953 (Given - Provider: Mahogany Deleon RN) HYDROmorphone (PF) (DILAUDID) 1 mg/mL injection [...] Recovery (only) 1013 (Given - Provider: Mahogany Deleon, RN) ondansetron (PF) (ZOFRAN) injection 4 mg (CANCELED) 4 mg, intravenous, EVERY 4 HOURS PRN, Starting on Sat09/05/15 at 1225, Until Sat09/07/15 at 1423, Nausea, Routine, On Unit 1513 (Given - Provider: Valente Hernandez)2209 (Given - Provider: Hortenica Franz, ALEXANDER) oxyCODONE (ROXICODONE) solution 5-10 mg 5-10 mg, [...] 09/07/2015 documented in this encounter Care Teams Discovery Guide Relationship Specialty Start Date End Date Alejandra Trevino MD [address] [facility] [place] [phone] PCP - General 09/25/12 12/07/18 documented as of this encounter
--- OUTSIDE RECORDS SUMMARY | 2024-09-17 09:14 | XMS_ITS | Encounter Summary ---
Author Organization [facility] Address [address] [place] [address] Care Team Providers Care Project Inspector Name Role Phone Juma Herrera MD Primary Care Provider [phone] Reason for Visit * Reason Comments Obesity H Encounter Details Date Type Department Care Team (Late st Contact Info) Description 08/19/2015 10:30 EST Office Visit [facility] Bariatric Surgery - [place] [address] [place] [address] Master Ugarte MD [address] [place] [phone] Preop examination (Primary Dx) Social [...] Info) Description 09/18/2024 11:00 EST Office Visit [facility] Bariatric Surgery [place] [address] [place] [address] Allen Thompson, PA-C [address] [facility], [address] [place] [phone] 10/26/2024 10:45 EST Telemedicine [facility] Neurology - [address] [phone] Sulema Nicole, LANGUAGE TRANSLATOR 1 [facility] [address] [place] [phone] documented as of this encounter Visit Diagnoses Diagnosis Preop examination- Primary Preoperative examination, unspecified documented in this encounter Care Teams Project Inspector Relationship Specialty Start Date End Date Juma Herrera MD [address] [facility] [place] [phone] PCP - General 09/25/12 12/07/18 documented as of this encounter
--- OUTSIDE RECORDS SUMMARY | 2024-09-17 09:14 | XMS_ITS | Encounter Summary ---
Author Organization [facility] Address [address] [place] [address] Care Team Providers Care Contract Law Specialist Name Role Phone Juma Herrera MD Primary Care Provider [phone] Reason for Referral * Cardiology (STAT) - Specialty Report Received Specialty Diagnoses / Procedures Referred By Contac t Referred To Contact Diagnoses Preop examination Morbid obesity with BMI of 40.0-44.9, adult ([facility]) Depression GERD without esophagitis Procedures EKG 12-LEAD Allen Thompson PA-C Phone: tel: fax: Referral ID Status Reason Start Date Expiration Date V isits Requested Visits Authorized [id number] Specialty Report Received 08/19/2015 1 1 Reason for Visit * Reason Comments Obesity H Encounter Details Date Type Department Care Team (Late st Contact Info) Description 08/19/2015 10:30 EST Office Visit [facility] Bariatric Surgery [facility] [address] [place] [address] Allen Thompson, ELISABETH [address] [facility], [facility], Level 5 [place] [address] Preop examination (Primary Dx); Morbid obesity with BMI of 40.0-44.9, adult (CMS-HCC) ([facility]); Depression; GERD without esophagitis Social History Tobacco [...] Refills Last Filled Start Date End Date oxyCODONE (ROXICODONE) 5 mg/5 mL solution Take 5-10 mL by mouth every 4 hours as needed for Pain starting after surgery on 09/05/14 Daily Max: 60 mg 150 mL 0 08/19/2015 8 ondansetron (ZOFRAN-ODT) 4 mg disintegrating tablet Take 1 Tab by mouth every 8 hours as needed for Nausea starting after surgery on 09/05/14 12 Tab 0 08/19/2015 5 omeprazole (PRILOSEC) 40 mg capsule Take 1 Cap by mouth daily starting after surgery on 09/05/14 30 Cap 12 08/19/2015 5 documented in this encounter Progress Notes * Allen Thompson PA - 09/14/2015 1403 EST Subjective: Patient ID: Tia Spain is an 40 y.o. female. Chief Complaint [...] 0 * Lux Dumont RD - 08/19/2015 1940 EST Medical Nutrition Evaluation-PRE OP NOTE Bariatric [...] diet progression. Plan: Diet Goals: Calorie goal [phone] and Pre-op liquid diet start date 08/26/15 [...] Visit [facility] Bariatric Surgery - [place] [address] [place] [address] Allen Thompson, ELISABETH 111 [facility], [address] [place] [phone] 10/26/2024 10:45 EST Telemedicine [facility] Neurology - [address] [place] [address] [place] [address] Sulema Nicole, GIULAI [address] [facility], Level 2 [place] [address] documented as of this encounter Procedures Procedure Name Priority Date/Time Associated Diagnosis Comments ECG REPORT - SCANNED 08/24/2015 15:13 EST EKG 12-LEAD Routine 08/19/2015 11:27 EST Preop examination Morbid obesity with BMI of 40.0-44.9, adult (CMS-HCC) ([facility]) Depression GERD without esophagitis documented in this encounter Results * ECG REPORT - SCANNED (08/24/2015 15:13 EST) 08/24/2015 15:1 3 EST us Scan 2 [place] PROCEDURE/MINOR SURGICAL OR DERABLES Final Result * EKG 12-LEAD (08/19/2015 11:27 EST) 08/19/2015 11:2 7 EST Narrative [facility] EKG - 08/23/2015 12:12 EST ? [facility] ? Test Date: ?2015-08-19 Pat Name: ? TIA CORETTA ? Department: ?? WillBariatri ? Room: ? Gender: ? F ?Career Services Representative: ?? [id number] : ?1975 ? Requested By: ASTRID Trinh Order Number: [id number] ? Reading MD: ?? FILIPE WEBBER MD ? Measurements Intervals ?[place] ? Rate: ? 82 ? P: ?57 FL: ? 138 ?QRS: ?13 QRSD: ? 81 ? T: ?36 QT: ? 366 ? QTc: ?429 ? Interpretive Statements SINUS RHYTHM Automated Interpretation. ??Physician Interpretation to follow. No previous ECG available for comparison I reviewed the tracing and have either agreed or edited the findings in this report. Electronically Signed On 08-23-15 12:12:29 EST by FILIPE WEBBER MD. Procedure Note Filipe Webber MD - 08/23/2015 [facility] Test Date: 2015-08-19 Pat Name: TIA SPAIN Department: WillBariatri Room: Gender: F Career Services Representative: [id number] : 1975 Requested By: ASTRID ARCE Order Number: [id number] Reading MD: FILIPE WEBBER MD Measurements Intervals [place] Rate: 82 P: 57 FL: 138 QRS: 13 QRSD: 81 T: 36 QT: 366 QTc: 429 Interpretive Statements SINUS RHYTHM Automated Interpretation. Physician Interpretation to follow. No previous ECG available for comparison I reviewed the tracing and have either agreed or edited the findings inthis report. Electronically Signed On 08-23-15 12:12:29 EST by FILIPE BUSH. us Allen Thompson PA-C CARDIAC ECG ORDERABL ES Final Result [facility] EKG documented in this encounter Visit Diagnoses Diagnosis Preop examination- Primary Preoperative examination, unspecified Morbid obesity with BMI of 40.0-44.9, adult ([facility]) Morbid obesity Depression Depressive disorder, not elsewhere classified GERD without esophagitis Esophageal reflux documented in this encounter Care Teams Contract Law Specialist Relationship Specialty Start Date End Date Juma Herrera MD [address] [facility] [place] [phone] PCP - General 09/25/12 12/07/18 documented as of this encounter
--- OUTSIDE RECORDS SUMMARY | 2024-09-17 09:14 | XMS_ITS | Encounter Summary ---
Author Organization [facility] Address [address] [place] [address] Care Team Providers Care Deputy Chief Sheriff Name Role Phone Juma Herrera MD Primary Care Provider [phone] Reason for Visit * Reason Onset Date Comments Results 08/24/2015 Encounter Details Date Type Department Care Team (Late st Contact Info) Description 08/24/2015 Telephone [facility] Bariatric Surgery [facility] [address] [place], [place] [phone] Mary Rosales, ALEXANDER Results Social History Tobacco Use Types [...] Info) Description 09/18/2024 11:00 EST Office Visit [facility] Bariatric Surgery [facility] [address] [place], [place] [phone] Allen Thompson PA-C 111 [facility], [facility], Level 5 [place] [phone] 10/26/2024 10:45 EST Telemedicine [facility] Neurology - [address] [address] Sulema Nicole, TILTING HEAD BAND SAWYER [address] [place] [address] [address] [place] [address] documented as of this encounter Visit Diagnoses Not on filedocumented in this encounter Care Teams Deputy Chief Sheriff Relationship Specialty Start Date End Date Juma Herrera MD [address] [facility] [place] [phone] PCP - General 09/25/12 12/07/18 documented as of this encounter
--- OUTSIDE RECORDS SUMMARY | 2024-09-17 09:14 | XMS_ITS | Encounter Summary ---
Author Organization [facility] Address [address] [place] [address] Care Team Providers Care Api Product Manager Name Role Phone Juma Herrera MD Primary Care Provider [phone] Reason for Visit * Reason Onset Date Comments Advice Only 09/09/2015 Encounter Details Date Type Department Care Team (Late st Contact Info) Description 09/09/2015 Telephone [facility] Bariatric Surgery - [address] [phone] Lux Dumont, RD [address] [place] [phone] Advice Only Social History Tobacco Use [...] No 09/05/2015 12:00 EST MaryKhoa farias documented as of this encounter Mental Status * Because of a physical, mental, or emotional condition, do you have serious difficulty concentrating, remembering, or making decisions? (5 years old or older) Answer Entry Date Author No 09/05/2015 12:00 EST Mary Khoa barrera documented in this encounter Miscellaneous Notes * [...] [facility] - [place] [address] Allen Thompson PA-C [address] [place] [address] [address] [place] [phone] 10/26/2024 10:45 EST Telemedicine [facility] Neurology - [address] [phone] Sulema Nicole, SCIENTIFIC PHOTOGRAPHER 1 [facility], [address] [place] [address] documented as of this encounter Visit Diagnoses Not on filedocumented in this encounter Care Teams Api Product Manager Relationship Specialty Start Date End Date Juma Herrera MD [address] [place] [phone] PCP - General 09/25/12 12/07/18 documented as of this encounter
--- OUTSIDE RECORDS SUMMARY | 2024-09-17 09:14 | XMS_ITS | Encounter Summary ---
Author Organization [facility] Address [address] [place] [address] Care Team Providers Care Web Weaver Name Role Phone Juma Herrera MD Primary Care Provider [phone] Encounter Details Date Type Department Care Team (Late st Contact Info) Description 04/21/2015 Phlebotomy Only [address] [phone] Insight Leader, Outpatient Morbid obesity with BMI of 45.0-49.9, [...] Visit [facility] Bariatric Surgery - [address] [address] Allen Thompson PA-C 111 [facility] [place], [facility], Level [address] [place] [phone] 10/26/2024 10:45 EST Telemedicine [facility] Neurology - [address] [address] Sulema Nicole, AUTOMATION ENGINEERING TECHNICIAN 1 [facility], Level [address] [place] [address] documented as of this encounter Procedures Procedure Name Priority Date/Time Associated Diagnosis Comments VITAMIN D (25,OH) Routine 04/21/2015 15: 08 EDT Morbid obesity with BMI of 45.0-49.9, adult (CMS-HCC) (HCC-CMS) COMPLETE BLOOD COUNT Routine 04/21/2015 15:08 EDT Morbid obesity with BMI of 45.0-49.9, adult (CMS-HCC) (HCC-CMS) TSH Routine 04/21/2015 15:08 EDT Morbid obesity with BMI of 45.0-49.9, adult (CMS-HCC) (HCC-CMS) HEMOGLOBIN A1C Routine 04/21/2015 15:08 EDT Morbid obesity with BMI of 45.0-49.9, adult (CMS-HCC) (HCC-CMS) FERRITIN Routine 04/21/2015 15:08 EDT Morbid obesity with BMI of 45.0-49.9, adult (CMS-HCC) (HCC-CMS) VITAMIN B12 Routine 04/21/2015 15:08 EDT Morbid obesity with BMI of 45.0-49.9, adult (CMS-HCC) (HCC-CMS) CREATININE Routine 04/21/2015 15:08 EDT Morbid obesity with BMI of 45.0-49.9, adult (CMS-HCC) (HCC-CMS) HEPATIC FUNCTION PANEL (ALB,ALK PHOS,ALT,AST,DBIL,TO T GILBERTO,TOT PROT) Routine 04/21/2015 15:08 EDT Morbid obesity with BMI of 45.0-49.9, adult (CMS-HCC) (HCC-CMS) documented in this encounter Results * TSH (04/21/2015 15:08 EDT) TSH 0.51 0.35 - 5.00 uIU/ml 04/21/2015 20:25 EDT [facility] Blood specimen (specimen) BLOOD SPECIMEN / Unknown 04/21/2015 15:08 EDT 04/21/2015 17:46 EDT us Allen Marroquinpage [facility]-C CHEMISTRY & BLOOD GA S ORDERABLES Final Result Performing Organization Address [facility] de Phone Number [facility] [address] [place] [address] * (ABNORMAL) VITAMIN D (25,OH) (04/21/2015 15:08 EDT) 25OH Vitamin D Tot 26.6(L) 30 - 100 ng/ml 04/22/2015 13:39 EDT [facility] Comment: Reference Range: Deficient = <10 ng/ml Insufficient = 10-30 ng/ml Sufficient = 30-100 ng/ml Toxic = >100 ng/ml Blood specimen (specimen) BLOOD SPECIMEN / Unknown 04/21/2015 15:08 EDT 04/21/2015 17:46 EDT us Allen AVILA-C CHEMISTRY & BLOOD GA S ORDERABLES Final Result Performing Organization Address [facility] de Phone Number [facility] [address] [place] [address] * (ABNORMAL) HEPATIC FUNCTION PANEL (ALB,ALK PHOS,ALT,AST,DBIL,TOT GILBERTO,TOT PROT) (04/21/2015 15:08 EDT) Albumin 3.8 3.4 - 4.9 g/dl 04/21/2015 19:18 EDT [facility] Total Protein 6.4 6.3 - 8.2 g/dl 04/21/2015 19:18 EDT [facility] Total Alkaline Phosphatase 56 38 - 126 U/L 04/21/2015 19:18 EDT [facility] ALT 21 <53 U/L 04/21/2015 19:18 [facility] AST 14(L) 15 - 46 U/L 04/21/2015 19:18 [facility] Unconjugated Bilirubin 0.0 0.0 - 1.1 mg/dl 04/21/2015 19:18 [facility] Conjugated Bilirubin 0.0 0.0 - 0.3 mg/dl 04/21/2015 19:18 [facility] Bilirubin, Total <0.5 <1.4 mg/dl 04/21/20 19:18 [facility] Blood specimen (specimen) BLOOD SPECIMEN / Unknown 04/21/2015 15:08 EDT 04/21/2015 17:46 EDT us Allen AVILA-C CHEMISTRY & BLOOD GA S ORDERABLES Final Result Performing Organization Address [facility] Co de Phone Number [facility] [address] [place] [address] * HEMOGLOBIN A1C (04/21/2015 15:08 EDT) Hemoglobin A1C 5.4 % 04/22/2015 10:28 [facility] Comment: Reference Range: <5.7% Normal 5.7-6.4% Increased risk for diabetes =>6.5% Diagnostic for diabetes (if confirmed) The A1c goal for non adults in general is <7%. The A1c goal for selected patients may be significantly lower than 7% if this can be achieved without significant hypoglycemia or other adverse effects of treatment. Est Avg Glucose 108 mg/dl 5 10:28 T [facility] Comment: eAG represents the A1c result expressed as average glucose in mg/dl. Blood specimen (specimen) BLOOD SPECIMEN / Unknown 04/21/2015 15:08 EDT 04/21/2015 17:46 EDT us Allen AVILA-C CHEMISTRY & BLOOD GA S ORDERABLES Final Result [facility] [address] [place] [address] * FERRITIN (04/21/2015 15:08 EDT) Ferritin 32 10 - 291 ng/mL 04/21/2015 20:17 EDT [facility] Blood specimen (specimen) BLOOD SPECIMEN / Unknown 04/21/2015 15:08 EDT 04/21/2015 17:46 EDT us Allen Thompson PA-C CHEMISTRY & BLOOD GA S ORDERABLES Final Result Performing Organization Address [facility] de Phone Number [facility] [address] [place] [address] * CREATININE (04/21/2015 15:08 EDT) Creatinine 0.68 0.52 - 1.04 mg/dl 04/21/2015 19:18 EDT [facility] GFR, Calculated 109 >60 ml/min/1.7 3m2 04/21/2015 19:18 EDT [facility] Comment: eGFR calculated using CKD-EPI equation for non Americans. Multiply eGFR by 1.16 for Americans. Blood specimen (specimen) BLOOD SPECIMEN / Unknown 04/21/2015 15:08 EDT 04/21/2015 17:46 EDT us Allen Thompson PA-C CHEMISTRY & BLOOD GA S ORDERABLES Final Result Performing Organization Address [facility] Co de Phone Number [facility] [address] [place] [address] * (ABNORMAL) HEMAGRAM (04/21/2015 15:08 EDT) WBC 9.60 4.0 - 12.4 K/cmm 04/21/2015 18:04 EDT [facility] RBC 4.81 3.86 - 5.04 M/cmm 04/21/2015 18:04 EDT [facility] Hemoglobin 14.4 11.6 - 15.2 gm/dl 04/21/2015 18:04 [facility] HCT 42.9 34.9 - 44.4 % 04/21/2015 18:04 [facility] MCV 89 81 - 98 fl 04/21/2015 18:04 [facility] MCH 30.1 26.7 - 33.3 pg 04/21/2015 18:04 [facility] MCHC 33.7 32.1 - 35.9 gm/dl 04/21/2015 18:04 [facility] RDW-CV 14.6 11.7 - 14.6 % 04/21/2015 18:04 [facility] RDW-SD 45.5 37.6 - 50.3 fl 04/21/2015 18:04 [facility] PLT 330(H) 141 - 320 K/cmm 04/21/2015 18:04 [facility] MPV 8.9 7.5 - 11.2 fl 04/21/2015 18:04 [facility] Blood specimen (specimen) BLOOD SPECIMEN / Unknown 04/21/2015 15:08 EDT 04/21/2015 17:46 EDT us Allen Thompson PA-C HEMATOLOGY & PF4 ORD ERABLES Final Result [facility] [address] [place] [address] * VITAMIN B12 (04/21/2015 15:08 EDT) Vitamin B-12 352 211 - 911 pg/ml 04/21/2015 20:17 EDT [facility] Blood specimen (specimen) BLOOD SPECIMEN / Unknown 04/21/2015 15:08 EDT 04/21/2015 17:46 EDT us Allen Thompson PA-C CHEMISTRY & BLOOD GA S ORDERABLES Final Result [facility] [address] [place] [phone] documented in this encounter Visit Diagnoses Diagnosis Morbid obesity with BMI of 45.0-49.9, adult ([facility])- Primary Morbid obesity documented in this encounter Care Teams Web Weaver Relationship Specialty Start Date End Date Juma Herrera MD [address] [facility] [place] [phone] PCP - General 09/25/12 12/07/18 documented as of this encounter
--- OUTSIDE RECORDS SUMMARY | 2024-09-17 09:14 | XMS_ITS | Encounter Summary ---
Author Organization [facility] Address [address] [place] [address] Care Team Providers Care Furniture Finisher Helper Name Role Phone Juma Herrera MD Primary Care Provider [phone] Reason for Referral * Referral (Routine) - Closed Specialty Diagnoses / Procedures Referred By Contmarco a t Referred To Contact Diagnoses Low back pain Lumbar radiculopathy Starr Hart PA-C Referral ID Status Reason Start Date Expiration Date V isits Requested Visits Authorized [id number] Closed Specialty Services Required 06/02/2014 1 1 Question Answer Reason for Request: aquatic therapy Encounter Details Date Type Department Care Team (Late st Contact Info) Description 06/02/2014 Orders Only [facility] Spine Program - Scout [facility] [address] [place], [place] [phone] Starr Hart PA-C Low back pain (Primary [...] Visit [facility] Bariatric Surgery - [place] [address] [place] [address] Allen Thompson PA-C 111 [facility], [facility], [address] [place] [phone] 10/26/2024 10:45 EST Telemedicine [facility] Neurology - [address] [phone] Sulema Nicole NP [address] [place] [address], [address] [place] [phone] Scheduled Referrals Name Type Priority Associated Diagnoses Orde r Schedule AMB CONS/FOLLOW UP PHYSICAL THERAPY Outpatient Referral Routine Low back pain Lumbar radiculopathy Ordered: 06/02/2014 documented as of this encounter Visit Diagnoses Diagnosis Low back pain- Primary Lumbago Lumbar radiculopathy Thoracic or lumbosacral neuritis or radiculitis, unspecified documented in this encounter Care Teams Furniture Finisher Helper Relationship Specialty Start Date End Date Juma Herrera MD [address] [facility] [place] [phone] PCP - General 09/25/12 12/07/18 documented as of this encounter
--- OUTSIDE RECORDS SUMMARY | 2024-09-17 09:15 | XMS_ITS | Encounter Summary ---
Author Organization [facility] Address [address] [place] [address] Care Team Providers Care Coastal Tug Mate Name Role Phone Juma Herrera MD Primary Care Provider [phone] Encounter Details Date Type Department Care Team (Late st Contact Info) Description 09/25/2012 Orders Only [facility] Spine Program - Scout [facility] [address] [place], [place] [phone] Becki Rea, RN [address] [place] [address] Social History Tobacco Use Types Packs/Day Years [...] surgeon. The total score is 6. Becki Rea, ALEXANDER documented in this encounter Plan of Treatment Upcoming Encounters Date Type Department Care Team (Late st Contact Info) Description 09/18/2024 11:00 EST Office Visit [facility] Bariatric Surgery - [address] [phone] Allen Thompson PA-C 111 [facility], [facility], Level [address] [place] [phone] 10/26/2024 10:45 EST Telemedicine [facility] Neurology - [address] [phone] Sulema Nicole NP 1 [facility], Level [address] [place] [phone] documented as of this encounter Visit Diagnoses Not on filedocumented in this encounter Care Teams Coastal Tug Mate Relationship Specialty Start Date End Date Juma Herrera MD [address] [facility] [place] [phone] PCP - General 09/25/12 12/07/18 documented as of this encounter
--- OUTSIDE RECORDS SUMMARY | 2024-09-17 09:15 | XMS_ITS | Encounter Summary ---
Author Organization [facility] Address [address] [place] [address] Care Team Providers Care Engineering Group Leader Name Role Phone Juma Herrera MD Primary Care Provider Reason for Referral * Consult (Routine) - Specialty Report Received Specialty Diagnoses / Procedures Referred By Contac t Referred To Contact Pain Medicine Diagnoses Lumbago S/P lumbar fusion Lumbar spondylosis Starr Hart PA-C [facility] Interventional Pain [address] [place] [address] Phone: tel: fax: Referral ID Status Reason Start Date Expiration Date Visits Requested Visits Authorized [id number] Specialty Report Received Specialty Services Required 05/04/2014 1 1 Question Answer Reason for Request: consider repeat SI Joint injections vs. facet joint injections * Referral (Routine) - Closed Specialty Diagnoses / Procedures Referred By Contac t Referred To Contact Diagnoses Lumbago S/P lumbar fusion Lumbar spondylosis Starr Hart PA-C Referral ID Status Reason Start Date Expiration Date V isits Requested Visits Authorized [id number] Closed Specialty Services Required 05/04/2014 1 1 Question Answer Reason for Request: aquatic therapy * Radiology Services (Routine) - Closed Specialty Diagnoses / Procedures Referred By Contac t Referred To Contact Diagnoses Lumbago Procedures L SPINE 4 OR MORE VIEWS Starr Hart PA-C Referral ID Status Reason Start Date Expiration Date Visits Re quested Visits Authorized [id number] Closed 05/04/2014 1 1 Reason for Visit * Reason Comments Back Pain Encounter Details Date Type Department Care Team (Late st Contact Info) Description 05/04/2014 12:45 EDT Office Visit [facility] Spine Program - [place] [address] [place] [address] Starr Hart PA-C Lumbago (Primary Dx); S/P [...] Refills Last Filled Start Date End Date meloxicam (MOBIC) 7.5 mg tablet Take 1 [...] with standing for 5-10 minutes. Leaning forward urqx-bza-fwipyqf is somewhat all eviating. 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 Shipping[place]-3 Fatty Acids-Vitamin E (FISH OIL) 1,000 mg [...] joint degenerative changes. Lumbar MRI without contrast [facility] 02/09/2014- laminectomy at L5-S1 with posterior [...] [facility] Bariatric Surgery - [place] [address] [place] [address] Allen Thompson PA-C 111 [facility] 5 [place] [phone] 10/26/2024 10:45 EST Telemedicine [facility] Neurology - [address] [address] Sulema Nicole, GIULIA [address] [place] [address] Level 2 [place] [phone] Scheduled Referrals Name Type Priority Associated Diagnoses [...] and MRI April 05, 2011 and from . Technique: AP and lateral flexion, neutral and [...] and MRI April 05, 2011 and from . Technique: AP and lateral flexion, neutral and [...] right upper quadrant consistent with prior cholecystectomy. us Starr Hart PA-C IMG DIAGNOSTIC IMAGING ORD ERABLES Final Result documented in this encounter Visit Diagnoses Diagnosis Lumbago- Primary S/P lumbar fusion Arthrodesis status Lumbar spondylosis Lumbosacral spondylosis without myelopathy documented in this encounter Historical Medications * This list may reflect changes made after this encounter. oxyCODONE (ROXICODONE) 5 mg immediate release tablet Take 10 mg by mouth every 4 hours. 09/07/2015 added in this encounter Care Teams Engineering Group Leader Relationship Specialty Start Date End Date Juma Herrera MD [address] [facility] [place] [address] PCP - General 09/25/12 12/07/18 documented as of this encounter
--- OUTSIDE RECORDS SUMMARY | 2024-09-17 09:15 | XMS_ITS | Encounter Summary ---
Author Organization [facility] Address [address] [place] [address] Care Team Providers Care Motor Vehicle Field Representative Name Role Phone Donna Mohr NP Primary Care Provider [phone] Reason for Visit * Reason Comments New Patient Visit Encounter Details Date Type Department Care Team ([facility] st Contact Info) Description 07/23/2012 13:00 EST Office Visit [facility] Neurology - S [address] [phone] Zachery Walters MD [address] [place] [address], Level [address] [place] [phone] Numbness and tingling; Pain, arm, right Social [...] documented in this encounter Procedure Notes * LOAN TELLER, SCAN 2 - 07/28/2012 1044 ESTAssociated Order(s): PATHOLOGY - SCANNED * LOAN TELLER, SCAN 2 - 07/28/2012 1044 ESTAssociated Order(s): [...] right-handed white 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 Dr Herrera of [facility] [place] [facility] in [place], [place] is her family physician. She attended [...] she has seen a headache specialist at [facility]; lumbar radiculopathy, and tarsal tunnel syndrome. PAST SURGICAL HISTORY: Lumbar partial diskectomy at L5-S1 by Dr Bowers at [facility] many years ago for leg pain that [...] is high school educated, works as a bank cashier, lives with her boyfriend and children [...] - MS Job ID: SM Doc ID: [id number] Ext Doc ID: [id number] cc: MD Dr Javier Guzman* documented in this encounter Plan of Treatment Upcoming Encounters Date Type Department Care Team (Late st Contact Info) Description 09/18/2024 11:00 EST Office Visit [facility] Bariatric Surgery - [place] [address] [place] [address] Allen Thompson, ZHOUC 111 [facility], [facility], Level [address] [place] [phone] 10/26/2024 10:45 EST Telemedicine [facility] Neurology - [address] [place] [address] [place], [place] [phone] Sulema Nicole NP 1 [facility] [address] [place] [address] documented as of this encounter Procedures Procedure Name Priority Date/Time Associated Diagnosis Comments PATHOLOGY - SCANNED 07/28/2012 1 0:44 EST PATHOLOGY - SCANNED 07/28/2012 1 0:44 EST documented in this encounter Results * PATHOLOGY - SCANNED (07/28/2012 10:44 EST) 07/28/2012 10:4 4 EST Narrative 07/28/2012 11:09 EST Procedure Note LOAN TELLER, SCAN 2 - 07/28/2012 10:44 EST us Scan 2 [employer] LAB INFO SERVICE AND SUPPOR T & PHONE RESULT Final Result * PATHOLOGY - SCANNED (07/28/2012 10:44 EST) 07/28/2012 10:4 4 EST Narrative 07/28/2012 11:09 EST Procedure Note LOAN TELLER, SCAN 2 - 07/28/2012 10:44 EST us Scan 2 [employer] LAB INFO SERVICE AND SUPPOR T & PHONE RESULT Final Result * T3, TOTAL (07/23/2012 14:19 EST) T3, Total 112 60 - 181 ng/dL [facility] Blood specimen (specimen) 07/23/2012 14:19 EST 07/23/2012 15:53 EST Zachery Walters MD CHEMISTRY & BLOOD GAS ORDERABLES Final Result Performing Organization Address [facility] Phone Number [facility] [address] [place] [address] * TSH (07/23/2012 14:19 EST) Pathologist [facility] TSH 0.93 0.35 - 5.00 uIU/ml [facility] Blood specimen (specimen) 07/23/2012 14:19 EST 07/23/2012 15:53 EST Zachery Walters MD CHEMISTRY & BLOOD GAS ORDERABLES Final Result Performing Organization Address [facility] Phone Number [facility] [address] [place] [address] * T4 FREE (07/23/2012 14:19 EST) Free T4 1.0 0.8 - 1.8 ng/dL [facility] D[facility] Blood specimen (specimen) 07/23/2012 14:19 EST 07/23/2012 15:53 EST Zachery Walters MD CHEMISTRY & BLOOD GAS ORDERABLES Final Result Performing Organization Address [facility] Phone Number [facility] [address] [place] [address] * HEMOGLOBIN A1C (07/23/2012 14:19 EST) Pathologist [facility] Hemoglobin A1C 5.2 % JERMAINE DANG Comment: [...] EST Zachery Walters MD CHEMISTRY & BLOOD GAS ORDERABLES Final Result Performing Organization Address [facility] de Phone Number [facility] [address] [place] [address] * FOLATE (07/23/2012 14:19 EST) Folate 8.7 ng/mL [facility] Comment: Deficient: ??Less than 3.4 ng/mL Indeterminate: ??3.4-5.4 ng/mL Normal: ??Greater than 5.4 ng/mL Blood specimen (specimen) 07/23/2012 14:19 EST 07/23/2012 15:53 EST us Zachery Walters MD CHEMISTRY & BLOOD GAS ORDERABLES Final Result Performing Organization Address [facility] Phone Number [facility] [address] [place] [address] * MONOCLONAL PROTEIN STUDY, URINE RANDOM (07/23/2012 [...] 07/23/2012 15:49 EST Zachery Walters MD URINALYSIS ORDERABLES Final Resu lt Performing Organization Address [facility] de Phone Number [facility] [address] [place] [address] * IMMUNOFIXATION/SPEP (07/23/2012 14:19 EST) Total Protein [...] EST Zachery Walters MD CHEMISTRY & BLOOD GAS ORDERABLES Final Result Performing Organization Address [facility] de Phone Number [facility] [address] [place] [address] * PYRIDOXAL 5 PHOSPHATE (PLP), PLASMA (07/23/2012 14:19 EST) Pathologist [facility] Pyridoxal 5 Phosphate 7 5 - 50 mcg/L [facility] Comment: Performed by: [facility], [address], [place] [address], Miniature Train Driver: Yoly Nobles, Ph.D. Blood specimen (specimen) 07/23/2012 14:19 EST 07/23/2012 15:53 EST Zachery Walters MD CHEMISTRY & BLOOD GAS ORDERABLES Final Result Performing Organization Address [facility] de Phone Number [facility] [address] [place] [address] * THIAMIN (VITAMIN B1), WB (07/23/2012 14:19 EST) Pathologist [facility] Thiamin (Vit B1), WB 119 70 - 180 nmol/L [facility] Comment: Performed by: [facility], [address], [place] [address], Miniature Train Driver: Yoly Nobles, Ph.D. Blood specimen (specimen) 07/23/2012 14:19 EST 07/23/2012 15:53 EST Zachery Walters MD CHEMISTRY & BLOOD GAS ORDERABLES Final Result Performing Organization Address [facility] [place] [address] * VITAMIN B12 (07/23/2012 14:19 EST) Pathologist [facility] Vitamin B-12 444 211 - 911 pg/ml [facility] Blood specimen (specimen) 07/23/2012 14:19 EST 07/23/2012 15:53 EST Zachery Walters MD CHEMISTRY & BLOOD GAS ORDERABLES Final Result Performing Organization Address [facility] [place] [address] * SED. RATE:FLAVIAREN (07/23/2012 14:19 EST) Pathologist [facility] Sed. Rate Westergren 14 0 - 20 mm/hr [facility] Blood specimen (specimen) 07/23/2012 14:19 EST 07/23/2012 15:53 EST Zachery Walters MD HEMATOLOGY & PF4 ORDERABLES Rhoda l Result Performing Organization Address [facility] [place] [address] * (ABNORMAL) C-REACTIVE PROTEIN (07/23/2012 14:19 EST) Pathologist [facility] C-Reactive Protein 1.3(H) <1.0 mg/dl [facility] Blood specimen (specimen) 07/23/2012 14:19 EST 07/23/2012 15:53 EST Zachery Walters MD CHEMISTRY & BLOOD GAS ORDERABLES Final Result Performing Organization Address [facility] Co de Phone Number [facility] [address] [place] [address] * COMPREHENSIVE METABOLIC PANEL (CMP) (07/23/2012 14:19 EST) Pathologist [facility] Potassium 3.7 3.5 - 5.0 mEq/L [facility] Sodium 139 136 - 145 mEq/L [facility] Chloride 106 96 - 110 mEq/L [facility] CO2 24 24 - 32 mEq/L [facility] Total Alkaline Phosphatase 65 38 - 126 U/L [facility] Bilirubin, Total <0.5 0.2 - [...] EST Zachery Walters MD CHEMISTRY & BLOOD GAS ORDERABLES Final Result Performing Organization Address [facility] de Phone Number [facility] [address] [place] [address] documented in this encounter Visit Diagnoses Diagnosis Numbness and tingling Disturbance of skin sensation Pain, arm, right Pain in limb documented in this encounter Historical Medications * This list may reflect changes made after this encounter. duloxetine (CYMBALTA) 30 mg capsule Take 30 mg by mouth 2 times daily. 09/22/2012 pregabalin (LYRICA) 50 mg capsule Take by mouth. 2 tabs am, 2 tab mid day, 2 tabs pm 08/21/2012 added in this encounter Care Teams Motor Vehicle Field Representative Relationship Specialty Start Date End Date [place] [address] PCP - General 10/24/11 09/24/12 documented as of this encounter
--- OUTSIDE RECORDS SUMMARY | 2024-09-17 09:15 | XMS_ITS | Encounter Summary ---
Author Organization [facility] Address [address] [place] [address] Care Team Providers Care Tire Fabric Inspector Name Role Phone Donna Mohr NP Primary Care Provider [phone] Reason for Visit * Reason Comments Neck Pain Encounter Details Date Type Department Care Team (Late st Contact Info) Description 08/08/2012 10:30 EST Office Visit [facility] Spine Program - [address] [place] [address] Ana Rosa Mendoza MD [address] [place] [address] Sp[place] [address] Cervicalgia (Primary Dx) Discharge Disposition: [...] Sainz MD - 08/13/2012 0601 EST Spine [place] [facility] (SpINE) Orthopaedics and Rehabilitation [address] [place] [address] ELECTRODIAGNOSTIC MEDICINE CONSULTATION SERVICE DATE: 08/08/2012 Dear [...] C8 root lesion. Sincerely yours, cc: Ana oRsa Mendoza MD Electronically Signed by Jordan Sainz MD 08/27/2012 08:25 Jordan Sainz MD - Jordan Sainz MD A - AN Job ID: Doc ID: [id number] Ext Doc ID: [id number] cc: documented in this encounter Consult Notes * Ana Rosa Mendoza MD - 08/11/2012 0749 EST Spine [place] [facility] (SpINE) Orthopaedics and Rehabilitation [address] [place], [place] [address] CONSULTATION - 08/08/2012 PROBLEM: 1. 60% neck, 40% right arm pain. a. C7 radiculopathy. b. 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 2. History of low back and right leg pain -- resolved. a. Status post L5-S1 diskectomy. b. L5 isthmic spondylolisthesis. c. L5-S1 decompression and fusion in 2006. 3. Obesity. 4. A 51-ovfw-uqad smoking history. a. Smoking cessation 2008. 5. Bipolar disorder. 6. Posttraumatic stress disorder. 7. History of narcotic addiction. a. Sobriety x8 years. 8. History of migraines. 9. Tarsal tunnel syndrome. 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 [...] to 20 hours a week as a speech therapist technician. She is not smoking, having quit 3 [...] MD - Job ID: SM Doc ID: [id number] Ext Doc ID: [id number] cc: documented in this encounter Plan of Treatment Upcoming Encounters Date Type Department Care Team (Late st Contact Info) Description 09/18/2024 11:00 EST Office Visit [facility] Bariatric Surgery [address] [address] Allen Thompson PA-C [address] [place] [address] 5 [place] [phone] 10/26/2024 10:45 EST Telemedicine [facility] Neurology - [address] [address] Sulema Nicole NP [address] [place] [address] 2 [place] [phone] documented as of this encounter Visit Diagnoses Diagnosis Cervicalgia- Primary documented in this encounter Care Teams Tire Fabric Inspector Relationship Specialty Start Date End Date Donna Mohr NP [address] [place], [place] [address] PCP - General 10/24/11 09/24/12 documented as of this encounter
--- OUTSIDE RECORDS SUMMARY | 2024-09-17 09:15 | XMS_ITS | Encounter Summary ---
Author Organization [facility] Address [address] [place] [address] Care Team Providers Care Political Science Instructor Name Role Phone Juma Herrera MD Primary Care Provider [phone] Reason for Referral * Radiology Services (Routine/Next Available) - Closed Specialty Diagnoses / Procedures Referred By Contmarco a t Referred To Contact Diagnoses Cervicalgia Procedures CERVICAL SPINE 2-3 VIEWS Kj Child MD Phone: tel: fax: Referral ID Status Reason Start Date Expiration Date Visits Re quested Visits Authorized [id number] Closed 10/14/2012 1 1 Reason for Visit * Reason Onset Date Comments Neck Pain 10/13/2012 Encounter Details Date Type Department Care Team (Late st Contact Info) Description 10/13/2012 Orders Only [facility] Spine Program - [address] [place] [address] Kj Child MD [address] [place] [address] [place] [address] Cervicalgia (Primary Dx) Social History [...] [facility] Bariatric Surgery - [place] [address] [place] [address] Allen Thompson PA-C 111 [place] [facility], [facility], Level [address] [place] [phone] 10/26/2024 10:45 EST Telemedicine [facility] Neurology - [address] [place] [address] [place] [address] Sulema Nicole NP 1 [facility], Level 2 [place] [phone] documented as of this encounter Procedures Procedure Name Priority Date/Time Associated Diagnosis Comments CERVICAL SPINE 2-3 VIEWS Routine 10/21/2012 12:59 EST Cervicalgia documented in this encounter Results * CERVICAL SPINE 2-3 VIEWS (10/21/2012 12:59 EST) Anatomical Region Laterality Modality Other 10/21/2012 12:5 9 EST 10/21/2012 16:18 EST Narrative 10/21/2012 16:18 EST CERVICAL SPINE 2-3 VIEWS ??Oct 21, 2012 12:59:00 PM Clinical History/Comments: 723.5-Tjvtujkubzp-MQY-9-CM; Neck Pain, status post C6-7 ACDF Comparison: [...] Oct 21, 2012 12:59:00 PM Clinical History/Comments: 723.6-Ravgnkuwtfx-QJJ-9-CM; Neck Pain, status post C6-7 ACDF Comparison: [...] that demonstrate a slightly straightened cervical lordosis. us Kj Child MD IMG DIAGNOSTIC IMAGING O RDERABLES Final Result documented in this encounter Visit Diagnoses Diagnosis Cervicalgia- Primary documented in this encounter Care Teams Political Science Instructor Relationship Specialty Start Date End Date Juma Herrera MD [address] [place] [address] PCP - General 09/25/12 12/07/18 documented as of this encounter
--- OUTSIDE RECORDS SUMMARY | 2024-09-17 09:15 | XMS_ITS | Encounter Summary ---
Author Organization [facility] Address [address] [place] [address] Care Team Providers Care Slurry Plant Operator Name Role Phone Donna Mohr NP Primary Care Provider [phone] Encounter Details Date Type Department Care Team (Late st Contact Info) Description 08/18/2012 Abstract [facility] Rehabilitation Therapy - [address] [phone] Kj Child MD [address] [place] [address] [place] [phone] Social History Tobacco Use Types Packs/Day Years [...] Description 09/18/2024 11:00 EST Office Visit [facility] Bariatric Surgery - [place] [address] [place] [address] Allen Thompson PALizettC 111 [facility], Level [address] [place] [phone] 10/26/2024 10:45 EST Telemedicine [facility] Neurology - [address] [place] [address] [place], [place] [address] Sulema Nicole, LADIES' HAT TRIMMER 1 [facility], Level [address] [place] [phone] documented as of this encounter Visit Diagnoses Not on filedocumented in this encounter Care Teams Slurry Plant Operator Relationship Specialty Start Date End Date Donna Mohr [place] [address] PCP - General 10/24/11 09/24/12 documented as of this encounter
--- OUTSIDE RECORDS SUMMARY | 2024-09-17 09:15 | XMS_ITS | Encounter Summary ---
Author Organization [facility] Address [address] [place] [address] Care Team Providers Care Aircraft Pilot Name Role Phone Onur Donna PLATT Primary Care Provider [phone] Reason for Visit * Reason Comments Neck Pain Arm Pain right Encounter Details Date Type Department Care Team (Latest Contact Info) Description 07/03/2012 9:30 EDT Office Visit [facility] Spine Program [place] [address] Starr Hart PA-C Neck pain [...] spent a total of 15 minutes of jxou-oh-qfgh time with the patient today, 15 minutes of my time was spent counseling the patient with risks and treatment options for neck pain and cervical radiculopathy. documented in this encounter Plan of Treatment Upcoming Encounters Date Type Department Care Team (Late st Contact Info) Description 09/18/2024 11:00 EST Office Visit [facility] Bariatric Surgery - [place] [address] [place], [place] [address] Allen Thompson, PA-C 111 [facility], Level [address] [place] [phone] 10/26/2024 10:45 EST Telemedicine [facility] Neurology - [address] [address] Sulema Nicole NP 1 [facility], Level [address] [place] [address] documented as of this encounter Visit Diagnoses Diagnosis Neck pain- Primary Cervicalgia Cervical radiculopathy Brachial neuritis or radiculitis nos documented in this encounter Care Teams Aircraft Pilot Relationship Specialty Start Date End Date Donna Mohr NP [address] [facility] [address] PCP - General 10/24/11 09/24/12 documented as of this encounter
--- OUTSIDE RECORDS SUMMARY | 2024-09-17 09:15 | XMS_ITS | Encounter Summary ---
Author Organization [facility] Address [address] [place] [address] Care Team Providers Care Sales Representative Aircraft Name Role Phone Juma Herrera MD Primary Care Provider [phone] Reason for Visit * Reason Comments Neck Pain Encounter Details Date Type Department Care Team (Late st Contact Info) Description 12/09/2012 13:30 EDT Office Visit [facility] Spine Program - [address] [place] [phone] Ana Rosa Mendoza MD [address] [place] [address] [place] [address] Cervicalgia (Primary Dx) Social History [...] Mendoza MD - 12/12/2012 0831 EDT Spine [place] [facility] (SpINE) Orthopaedics and Rehabilitation [address] [place] [address] PROGRESS/FOLLOWUP NOTE - 12/09/2012 PROBLEM. 1. [...] - AN Job ID: SM Doc ID: [id number] Ext Doc ID: [id number] cc: * Ana Rosa Mendoza MD - 12/09/2012 1448 EDT This office note has been dictated. ANA ROSA MENDOZA MD documented in this encounter Plan of Treatment Upcoming Encounters Date Type Department Care Team (Late st Contact Info) Description 09/18/2024 11:00 EST Office Visit [facility] Bariatric Surgery - [place] [address] [place] [address] Allen Thompson PA-C [address] [place] [address], [facility], Level [address] [place] [address] 10/26/2024 10:45 EST Telemedicine [facility] Neurology - [address] [place] 1 [place], [place] [phone] Sulema Nicole, GIULIA 1 [facility], Level [address] [place] [phone] documented as of this encounter Visit Diagnoses Diagnosis Cervicalgia- Primary documented in this encounter Historical Medications * This list may reflect changes made after this encounter. methylphenidate (RITALIN) 10 mg tablet Take 10 mg by mouth daily. 02/03/2015 rizatriptan (MAXALT) 10 mg tablet Take 10 mg by mouth once as needed. May repeat in 2 hours if needed 12/18/2021 added in this encounter Care Teams Sales Representative Aircraft Relationship Specialty Start Date End Date Juma eHrrera MD [address] [facility] [place] [address] PCP - General 09/25/12 12/07/18 documented as of this encounter
--- OUTSIDE RECORDS SUMMARY | 2024-09-17 09:15 | XMS_ITS | Encounter Summary ---
Author Organization [facility] Address [address] [place] [address] Care Team Providers Care Farm Facility Manager Name Role Phone Onur Donna PLATT Primary Care Provider [phone] Encounter Details Date Type Department Care Team (Late st Contact Info) Description 07/23/2012 Phlebotomy Only [address] [id number] Assembler Camper, Outpatient Numbness and tingling; Pain, arm, right [...] Info) Description 09/18/2024 11:00 EST Office Visit [facility] Bariatric Surgery - [place] [address] [place] [address] Allen Thompson PA-C 111 [facility], Level 5 [place] [phone] 10/26/2024 10:45 EST Telemedicine [facility] Neurology - [address] [phone] Sulema Nicole, RESOURCE TEACHER 1 [facility], Level 2 [place] [phone] documented as of this encounter Procedures Procedure [...] [facility] Type of Diff: Automated [facility] 07/23/2012 14:1 9 EST 07/23/2012 15:53 EST Zachery Walters MD HEMATOLOGY & PF4 ORDERABLES Rhoda l Result [facility] [address] [place] [address] * HEMAGRAM (07/23/2012 14:19 EST) WBC 7.12 4.0 - 12.4 K/cmm [facility] RBC 4.50 3.86 - 5.04 M/cmm [facility] Hemoglobin 13.8 11.6 - 15.2 gm/dl [facility] HCT 39.8 34.9 - 44.4 % [facility] MCV 88 81 - 98 fl [facility] MCH 30.6 26.7 - 33.3 pg [facility] MCHC 34.6 32.1 - 35.9 gm/dl [facility] PLT 270 141 - 320 K/cmm [facility] RDW-CV 14.0 11.7 - 14.6 % [facility] 07/23/2012 14:1 9 EST 07/23/2012 15:53 EST Zachery Walters MD HEMATOLOGY & PF4 ORDERABLES Rhoda l Result Performing Organization Address [facility] Co de Phone Number [facility] [address] [place] [address] * T3, TOTAL (07/23/2012 14:19 EST) T3, Total 112 60 - 181 ng/dL [facility] Blood specimen (specimen) 07/23/2012 14:19 EST 07/23/2012 15:53 EST Zachery Walters MD CHEMISTRY & BLOOD GAS ORDERABLES Final Result Performing Organization Address [facility] de Phone Number [facility] [address] [place] [address] * TSH (07/23/2012 14:19 EST) TSH 0.93 0.35 - 5.00 uIU/ml [facility] Blood specimen (specimen) 07/23/2012 14:19 EST 07/23/2012 15:53 EST Zachery Walters MD CHEMISTRY & BLOOD GAS ORDERABLES Final Result Performing Organization Address [facility] Co de Phone Number [facility] [address] [place] [address] * T4 FREE (07/23/2012 14:19 EST) Free T4 1.0 0.8 - 1.8 ng/dL [facility] Blood specimen (specimen) 07/23/2012 14:19 EST 07/23/2012 15:53 EST us Zachery Walters MD CHEMISTRY & BLOOD GAS ORDERABLES Final Result Performing Organization Address [facility] Co de Phone Number [facility] [address] [place] [address] * HEMOGLOBIN A1C (07/23/2012 14:19 EST) [facility] Hemoglobin A1C 5.2 % [facility] [...] GAS ORDERABLES Final Result Performing Organization Address [facility] Phone Number [facility] [address] [place] [address] * FOLATE (07/23/2012 14:19 EST) [facility] Folate 8.7 ng/mL [facility] Comment: Deficient: ??Less than 3.4 ng/mL Indeterminate: ??3.4-5.4 ng/mL Normal: ??Greater than 5.4 ng/mL Blood specimen (specimen) 07/23/2012 14:19 EST 07/23/2012 15:53 EST us Zachery Walters MD CHEMISTRY & BLOOD GAS ORDERABLES Final Result Performing Organization Address [facility] Co de Phone Number [facility] [address] [place] [address] * MONOCLONAL PROTEIN STUDY, URINE RANDOM (07/23/2012 [...] ORDERABLES Final Resu lt Performing Organization Address [facility] Co de Phone Number [facility] [address] [place] [address] * IMMUNOFIXATION/SPEP (07/23/2012 14:19 EST) Total Protein [...] GAS ORDERABLES Final Result Performing Organization Address [facility] Co de Phone Number [facility] [address] [place] [address] * PYRIDOXAL 5 PHOSPHATE (PLP), PLASMA (07/23/2012 14:19 EST) Pyridoxal 5 Phosphate 7 5 - 50 mcg/L [facility] Comment: Performed by: [facility] [employer] [place], [address], [place] [address], Lubrication Worker: Yoly Nobles, Ph.D. Blood specimen (specimen) 07/23/2012 14:19 EST 07/23/2012 15:53 EST us Zachery Walters MD CHEMISTRY & BLOOD GAS ORDERABLES Final Result Performing Organization Address [facility]/ZIP Co de Phone Number [facility] [address] [place] [address] * THIAMIN (VITAMIN B1), WB (07/23/2012 14:19 EST) Thiamin (Vit B1), WB 119 70 - 180 nmol/L [facility] Comment: Performed by: [facility] [employer] [place], [address], [place] [address], Lubrication Worker: Yoly Nobles, Ph.D. Blood specimen (specimen) 07/23/2012 14:19 EST 07/23/2012 15:53 EST us Zachery Walters MD CHEMISTRY & BLOOD GAS ORDERABLES Final Result Performing Organization Address [facility]/ZIP Co de Phone Number [facility] [address] [place] [address] * VITAMIN B12 (07/23/2012 14:19 EST) Vitamin B-12 444 211 - 911 pg/ml [facility] Blood specimen (specimen) 07/23/2012 14:19 EST 07/23/2012 15:53 EST us Zachery Walters MD CHEMISTRY & BLOOD GAS ORDERABLES Final Result Performing Organization Address [facility]/ZIP Co de Phone Number [facility] [address] [place] [address] * SED. RATE:WESTERGREN (07/23/2012 14:19 EST) Pathologist [facility] Sed. Rate Peteergren 14 0 - 20 mm/hr [facility] Blood specimen (specimen) 07/23/2012 14:19 EST 07/23/2012 15:53 EST Zachery Walters MD HEMATOLOGY & PF4 ORDERABLES Rhoda l Result Performing Organization Address [facility] Co de Phone Number [facility] [address] [place] [address] * (ABNORMAL) C-REACTIVE PROTEIN (07/23/2012 14:19 EST) [facility] C-Reactive Protein 1.3(H) <1.0 mg/dl [facility] Blood specimen (specimen) 07/23/2012 14:19 EST 07/23/2012 15:53 EST Zachery Walters MD CHEMISTRY & BLOOD GAS ORDERABLES Final Result Performing Organization Address [facility] de Phone Number [facility] [address] [place] [address] * COMPREHENSIVE METABOLIC PANEL (CMP) (07/23/2012 14:19 EST) [facility] Potassium 3.7 3.5 - 5.0 mEq/L [facility] Sodium 139 136 - 145 mEq/L [facility] Chloride 106 96 - 110 mEq/L [facility] CO2 24 24 - 32 mEq/L [facility] Total Alkaline Phosphatase 65 38 [...] CHEMISTRY & BLOOD GAS ORDERABLES Final Result [facility] [address] [place] [address] documented in this encounter Visit Diagnoses Diagnosis Numbness and tingling Disturbance of skin sensation Pain, arm, right Pain in limb documented in this encounter Care Teams Farm Facility Manager Relationship Specialty Start Date End Date Donna [place] [address] [place] [address] PCP - General 10/24/11 09/24/12 documented as of this encounter
--- OUTSIDE RECORDS SUMMARY | 2024-09-17 09:15 | XMS_ITS | Encounter Summary ---
Author Organization [facility] Address [address] [place] [address] Care Team Providers Care Erp Project Manager Name Role Phone Onur Donna PLATT Primary Care Provider [phone] Encounter Details Date Type Department Care Team (Late st Contact Info) Description 04/07/2012 Abstract [facility] Spine Program - [place] [address] [address] [place], [place] [phone] Starr Hart, PA-C Social History Tobacco Use Types Packs/Day [...] [facility] - [address] [phone] Allen Thompson PA-C 111 [facility], [facility], Level [address] [place] [address] 10/26/2024 10:45 EST Telemedicine [facility] Neurology - [address] [phone] Sulema Nicole NP 1 [facility], Level [address] [place] [address] documented as of this encounter Visit Diagnoses Not on filedocumented in this encounter Care Teams Erp Project Manager Relationship Specialty Start Date End Date Donna Mohr NP [address] [place] [address] PCP - General 10/24/11 09/24/12 documented as of this encounter
--- OUTSIDE RECORDS SUMMARY | 2024-09-17 09:15 | XMS_ITS | Encounter Summary ---
Author Organization [facility] Address [address] [place] [address] Care Team Providers Care Metal Off Bearer Name Role Phone Juma Herrera MD Primary Care Provider [phone] Reason for Visit * Reason Onset Date Comments Post-OP Follow Up 10/01/2012 Encounter Details Date Type Department Care Team (Late st Contact Info) Description 10/01/2012 Telephone [facility] Spine Program [place] [address] Becki Rea, RN [address] [place] [address] Post-OP Follow Up Social History Tobacco Use [...] Miscellaneous Notes * Telephone Encounter - Becki Rea, RN - 10/01/2012 1413 EST S/p C6-7 [...] Description 09/18/2024 11:00 EST Office Visit [facility] Bariatric Surgery - [place] [address] [place] [address] Allen Thompson PA-C 111 [facility] [address] [place] [phone] 10/26/2024 10:45 EST Telemedicine [facility] Neurology - [address] [address] Sulema Nicole NP 1 [facility] 2 [place] [phone] documented as of this encounter Visit Diagnoses Not on filedocumented in this encounter Care Teams Metal Off Bearer Relationship Specialty Start Date End Date Juma Herrera MD [address] [facility] [address] PCP - General 09/25/12 12/07/18 documented as of this encounter
--- OUTSIDE RECORDS SUMMARY | 2024-09-17 09:15 | XMS_ITS | Encounter Summary ---
Author Organization [facility] Address [address] [place] [address] Care Team Providers Care Pharmacist Assistant Name Role Phone Juma Herrera MD Primary Care Provider [phone] Germaine Worthy MD Primary Care Provide r Unavailable Juma Herrera MD Unavailable Juma Herrera MD Primary Care Provider [phone] Shonda Sánchez NP Primary Care Provider [phone] [facility] Primary Care Provider [phone] Curtis Burns MD Primary Care Provider [phone] Encounter Details Date Type Department Care Team (Late st Contact Info) Description 01/07/2013 Documentation Visit [facility] Neurology - [address] [place], [place] [phone] Abrahan Graves MD [address] [place] [phone] Social History Tobacco Use Types Packs/Day [...] MD - 01/12/2013 1031 EDT [facility] NEUROLOGY HEALTH CARE SERVICE PROGRESS/FOLLOWUP NOTE - 01/07/2013 CREDIT CONTROL CLERK: Skin biopsy. INDICATIONS: Small fiber neuropathy. The [...] MD - Job ID: SM Doc ID: [id number] Ext Doc ID: [id number] cc: Zachery Walters MD documented in this encounter Plan of Treatment Upcoming Encounters Date Type Department Care Team (Late st Contact Info) Description 09/18/2024 11:00 EST Office Visit [facility] Bariatric Surgery - [address] [address] Allen Thomposn PA-C [address] [place] [address] Level [address] [place] [phone] 10/26/2024 10:45 EST Telemedicine [facility] Neurology - [address] [place] [address] Sulema Nicole NP [address] [place] [address] 2 [place] [phone] documented as of this encounter Visit Diagnoses Not on filedocumented in this encounter Additional Health Concerns Infection Onset Date Last Indicated Resolved Time COVID-19 08/15/2021 08/15/2021 09/04/2021 22:1 5 EST documented as of this encounter Care Teams Pharmacist Assistant Relationship Specialty Start Date End Date Juma Herrera MD [address] [place] [address] PCP - General 09/25/12 12/07/18 Germaine Worthy MD [address] [place] [address] PCP - General 12/08/18 01/06/19 Juma Herrera MD [address] [place] [address] PCP - General 01/07/19 03/13/21 Shonda Sánchez NP [address] [place] [address] [address] [place] [address] PCP - General 03/14/21 01/31/22 [facility] [address] [place] [address] PCP - General 02/01/22 07/05/22 Curtis Burns MD [address] [place] [address] PCP - General Emergency Medicine 07/06/22 Juma Herrera MD [address] [place] [address] 12/08/18 documented as of this encounter
--- OUTSIDE RECORDS SUMMARY | 2024-09-17 09:15 | XMS_ITS | Encounter Summary ---
Author Organization Health system Address [address] [place] [address] Care Team Providers Care Steeler Name Role Phone Juma Herrera MD Primary Care Provider [phone] Reason for Visit * Reason Comments Follow-up Neck pain Encounter Details Date Type Department Care Team (Late st Contact Info) Description 03/20/2013 11:30 EDT Office Visit [facility] Spine Program - [address] [place] [address] Ana Rosa Mendoza MD [address] [place] [address] [place] [address] Cervicocranial syndrome (Primary Dx) Social [...] Mendoza MD - 03/21/2013 0739 EDT [facility] [place] [facility] [place] (SpINE) PROGRESS / FOLLOWUP NOTE - 03/20/2013 [...] Ana Rosa Mendoza MD tn Dictation Date: [id number] * Ana Rosa Mendoza MD - 03/20/2013 1135 EDT This office note has been dictated. ANA ROSA MENDOZA MD documented in this encounter Plan of Treatment Upcoming Encounters Date Type Department Care Team (Late st Contact Info) Description 09/18/2024 11:00 EST Office Visit [facility] Bariatric Surgery - [place] [address] [place], [place] [address] Aleln Thompson PALizettC 111 [facility], Level 5 [place] [phone] 10/26/2024 10:45 EST Telemedicine [facility] Neurology - [address] [phone] Sulema Nicole NP 1 [facility], Level [address] [place] [address] documented as of this encounter Visit Diagnoses Diagnosis Cervicocranial syndrome- Primary documented in this encounter Care Teams Steeler Relationship Specialty Start Date End Date Juma Herrera MD [address] [facility] [address] PCP - General 09/25/12 12/07/18 documented as of this encounter
--- OUTSIDE RECORDS SUMMARY | 2024-09-17 09:15 | XMS_ITS | Encounter Summary ---
Author Organization [facility] Address [address] [place] [address] Care Team Providers Care Ammunition And Explosives Handler Name Role Phone Donna Mohr NP Primary Care Provider [phone] Reason for Referral * Consult (Routine/Next Available) - Closed Specialty Diagnoses / Procedures Referred By Wili mireles Referred To Contact Pain Medicine Diagnoses Neck pain Cervical radiculopathy Starr Hart PA-C [facility] Interventional Pain [address] [place] [address] Phone: tel: fax: Referral ID Status Reason Start Date Expiration Date V isits Requested Visits Authorized [id number] Closed Specialty Services Required 05/01/2012 1 1 Question Answer Reason for Request: C7-T1 TLESI Reason for Visit * Reason Comments Neck Pain Arm Pain right Encounter Details Date Type Department Care Team (Latest Contact Info) Description 05/01/2012 9:30 EDT Office Visit [facility] Spine Program - [place] [address] [place] [address] Starr Hart PA-C Neck pain; Cervical radiculopathy [...] Refills Last Filled Start Date End Date indomethacin (INDOCIN SR) 75 mg SR capsule Take 1 Cap by mouth daily. 30 Cap 2 05/01/2012 09/22/2012 documented in this encounter Progress Notes * Nena Bo - 05/01/2012 1401 EDT Patient is notified in office that she is scheduled for C7-T1 TLESI at [facility] on 06/13/12 to register at 9:15AM and [...] Office Visit [facility] Bariatric Surgery - [place] [address] [place] [address] Allen Thompson PA-C [address] [place] [address], Level [address] [place] [address] 10/26/2024 10:45 EST Telemedicine [facility] Neurology - [address] [place] [address] [place], [place] [address] Sulema Nicole NP [address] [place] [address], Level 2 [place] [phone] Scheduled Referrals Name Type Priority Associated Diagnoses Orde r Schedule AMB CONSULT PAIN CLINIC Outpatient Referral Routine Neck pain Cervical radiculopathy Ordered: 05/01/2012 documented as of this encounter Visit Diagnoses Diagnosis Neck pain Cervicalgia Cervical radiculopathy Brachial neuritis or radiculitis nos documented in this encounter Care Teams Ammunition And Explosives Handler Relationship Specialty Start Date End Date Donna Mohr NP [address] [place] [address] PCP - General 10/24/11 09/24/12 documented as of this encounter
--- OUTSIDE RECORDS SUMMARY | 2024-09-17 09:15 | XMS_ITS | Encounter Summary ---
Author Organization [facility] Address [address] [place] [address] Care Team Providers Care Rn Bone Marrow Transplant Name Role Phone Donna Mohr NP Primary Care Provider [phone] Juma Herrera MD Primary Care Provider [phone] Reason for Visit * Reason Onset Date Comments Pre-procedure 08/21/2012 Encounter Details Date Type Department Care Team (Late st Contact Info) Description 08/21/2012 Pre-Procedure Orders Encounter [facility] Spine Program - [address] [place], [place] [phone] Becki Rea, RN [address] [place] [address] Cervicalgia (Primary Dx) Social History Tobacco Use [...] Description 09/18/2024 11:[address] [facility] Bariatric Surgery - [place] [address] [place], [place] [address] Allen Thompson, PALizettC 111 [facility], [facility], [address] [place] [phone] 10/26/2024 10:[address] [facility] Neurology - [address] [place] [address] [place], [place] [phone] Sulema Nicole, SOFTWARE CLIENT ARCHITECT 1 [facility], Level 2 [place] [phone] documented as of this encounter Visit Diagnoses Diagnosis Cervicalgia- Primary documented in this encounter Care Teams Rn Bone Marrow Transplant Relationship Specialty Start Date End Date Donna Mohr NP [address] [facility], [place] [address] PCP - General 10/24/11 09/24/12 Juma Herrera MD [address] [facility] [place] [address] PCP - General 09/25/12 12/07/18 documented as of this encounter
--- OUTSIDE RECORDS SUMMARY | 2024-09-17 09:15 | XMS_ITS | Encounter Summary ---
Author Organization [facility] Address [address] [place] [address] Care Team Providers Care Granite Polisher Name Role Phone Juma Herrera MD Primary Care Provider [phone] Reason for Referral * Radiology Services (Routine/Next Available) - Closed Specialty Diagnoses / Procedures Referred By Contmarco a t Referred To Contact Diagnoses Neck pain Procedures CERVICAL SPINE 1 [place]IEW Kj Child MD Phone: tel: fax: Referral ID Status Reason Start Date Expiration Date Visits Re quested Visits Authorized [id number] Closed 11/27/2012 1 1 Reason for Visit * Reason Onset Date Comments Neck Pain 11/26/2012 Encounter Details Date Type Department Care Team (Late st Contact Info) Description 11/26/2012 Orders Only [facility] Spine Program - [address] [place] [address] Kj Child MD [address] [place] [address] [place] [address] Neck pain (Primary Dx) Social [...] EST Office Visit [facility] Bariatric Surgery - [place] [address] [place] [address] Allen Thompson PA-C 111 [facility], [facility], Level [address] [place] [phone] 10/26/2024 10:45 EST Telemedicine [facility] Neurology - [address] [place] [address] [place], [place] [phone] Sulema Nicole NP 1 [facility], Level 2 [place] [phone] documented as of this encounter Procedures Procedure [...] disc space narrowing at C5-C6 and C7-T1. us Kj Child MD IMG DIAGNOSTIC IMAGING O RDERABLES Final Result documented in this encounter Visit Diagnoses Diagnosis Neck pain- Primary Cervicalgia documented in this encounter Care Teams Granite Polisher Relationship Specialty Start Date End Date Juma Herrera MD [address] [facility] [place] [phone] PCP - General 09/25/12 12/07/18 documented as of this encounter
--- OUTSIDE RECORDS SUMMARY | 2024-09-17 09:15 | XMS_ITS | Encounter Summary ---
Author Organization [facility] Address [address] [place] [address] Care Team Providers Care Blade Bender Furnace Tender Name Role Phone Donna Mohr NP Primary Care Provider [phone] Reason for Referral * Radiology Services (Routine/Next Available) - Closed Specialty Diagnoses / Procedures Referred By Contac t Referred To Contact Diagnoses Cervicalgia Procedures CERVICAL SPINE 4 OR MORE VIEWS Kj Child MD Phone: tel: fax: Referral ID Status Reason Start Date Expiration Date Visits Re quested Visits Authorized [id number] Closed 07/31/2012 1 1 Reason for Visit * Reason Onset Date Comments Neck Pain 07/31/2012 Encounter Details Date Type Department Care Team (Late st Contact Info) Description 07/31/2012 Orders Only [facility] Spine Program - [address] [place] [address] Kj Child MD [address] [place] [address] [place] [address] Cervicalgia (Primary Dx) Social History [...] Office Visit [facility] Bariatric Surgery - [place] [address] [place] [address] Allen Thompson PA-C 111 [facility], [facility], Level [address] [place] [address] 10/26/2024 10:45 EST Telemedicine [facility] Neurology - [address] [place] [address] [place] [address] Sulema Nicole, GIULIA 1 [facility], Level 2 [place] [phone] documented as of this encounter Procedures Procedure [...] Conclusion: C6-C7 degenerative disc disease. No instability. us Kj Child MD IMG DIAGNOSTIC IMAGING O RDERABLES Final Result documented in this encounter Visit Diagnoses Diagnosis Cervicalgia- Primary documented in this encounter Care Teams Blade Bender Furnace Tender Relationship Specialty Start Date End Date Donna Mohr NP [address] [place] [address] PCP - General 10/24/11 09/24/12 documented as of this encounter
--- OUTSIDE RECORDS SUMMARY | 2024-09-17 09:15 | XMS_ITS | Encounter Summary ---
Author Organization [facility] Address [address] [place] [address] Care Team Providers Care Oyster Unloader Name Role Phone Donna Mohr NP Primary Care Provider [phone] Reason for Visit * Reason Onset Date Comments Other 06/20/2012 Encounter Details Date Type Department Care Team (Late st Contact Info) Description 06/20/2012 Telephone [facility] Spine Program - [place] [address] Starr Hart PAVladimir Other Social History Tobacco Use Types Packs/Day [...] Description 09/18/2024 11:00 EST Office Visit [facility] Bariatric Surgery - [place] [address] [place], [place] [address] Allen Thompson PA-C 111 [facility], Level [address] [place] [phone] 10/26/2024 10:45 EST Telemedicine [facility] Neurology - S [address] [address] Sulema Nicole NP [address] [place] [address], Level [address] [place] [phone] documented as of this encounter Visit Diagnoses Not on filedocumented in this encounter Care Teams Oyster Unloader Relationship Specialty Start Date End Date Donna Mohr NP [address] [place] [address] PCP - General 10/24/11 09/24/12 documented as of this encounter
--- OUTSIDE RECORDS SUMMARY | 2024-09-17 09:15 | XMS_ITS | Encounter Summary ---
Author Organization [facility] Address [address] [place] [address] Care Team Providers Care Pot Press Operator Name Role Phone uJma Herrera MD Primary Care Provider [phone] Reason for Visit * Reason Onset Date Comments Neck Pain 09/07/2013 Encounter Details Date Type Department Care Team (Late st Contact Info) Description 09/07/2013 Telephone [facility] Spine Program - [address] [address] Kj Child MD 192 [facility] [place] [address] Neck Pain Social History Tobacco [...] Encounter - Becki Rea RN - 09/08/2013 7274 EST Pt calling stating that 2 weeks ago she developed neck and arm pain just like she had prior to surgery. She c/o thumb, index, and middle finger being numb and her arm being weak. She does not recall doing anything that would cause this pain. Appointment made to see one of the P.A's. * Telephone Encounter - Rosalino Carolina - 09/07/2013 1613 [...] Office Visit [facility] Bariatric Surgery - [place] [address] [address] [place], [place] [phone] Allen Thompson PALizettC 111 [facility], Level 5 [place] [phone] 10/26/2024 10:45 EST Telemedicine [facility] Neurology - S [address] [phone] Sulema Nicole NP 1 [facility] Level 2 [place] [address] documented as of this encounter Visit Diagnoses Not on filedocumented in this encounter Care Teams Pot Press Operator Relationship Specialty Start Date End Date Juma Herrera MD [address] [facility] [place] [address] PCP - General 09/25/12 12/07/18 documented as of this encounter
--- OUTSIDE RECORDS SUMMARY | 2024-09-17 09:15 | XMS_ITS | Encounter Summary ---
Author Organization [facility] Address [address] [place] [address] Care Team Providers Care Stitch Rubber Name Role Phone OnurDonna GIULIA Primary Care Provider [phone] Encounter Details Date Type Department Care Team (Late st Contact Info) Description 09/01/2012 Abstract [facility] Hand & Upper Extremity Program - Scout [facility] Scout Perez [place], [place] [phone] Khris Barraza MD [facility] [address] [phone] Social History Tobacco Use Types Packs/Day Years [...] Info) Description 09/18/2024 11:00 EST Office Visit [facility] Bariatric Surgery - [address] [place], [place] [address] Allen Thompson PA-C 111 [facility], [facility], Level 5 [place] [address] 10/26/2024 10:45 EST Telemedicine [facility] Neurology - [address] [place] 1 [place], [place] [address] Sulema Nicole NP 1 [facility], Level 2 [place] [phone] documented as of this encounter Visit Diagnoses Not on filedocumented in this encounter Care Teams Stitch Rubber Relationship Specialty Start Date End Date Donna Mohr NP [address] [facility] [place] [address] PCP - General 10/24/11 09/24/12 documented as of this encounter
--- OUTSIDE RECORDS SUMMARY | 2024-09-17 09:15 | XMS_ITS | Encounter Summary ---
Author Organization [facility] Address [address] [place] [address] Care Team Providers Care Load Out Worker Name Role Phone Juma Herrera MD Primary Care Provider [phone] Reason for Referral * Radiology Services (Routine/Next Available) - Closed Specialty Diagnoses / Procedures Referred By Contmarco a mireles Referred To Contact Diagnoses Neck pain Procedures CERVICAL SPINE 1 VIEW Kj Child MD Phone: tel: fax: Referral ID Status Reason Start Date Expiration Date Visits Re quested Visits Authorized [id number] Closed 03/17/2013 1 1 Encounter Details Date Type Department Care Team (Late st Contact Info) Description 03/12/2013 Orders Only [facility] Spine Program - [address] [address] Kj Child MD [address] [place] [address] [place] [address] Neck pain (Primary Dx) Social [...] Description 09/18/2024 11:00 EST Office Visit [facility] Bariatric Surgery - [place] [address] [place], [place] [address] Allen Thompson PA-C 111 [facility], [facility], Level 5 [place] [phone] 10/26/2024 10:45 EST Telemedicine [facility] Neurology - S [place] 1 [place], [place] [phone] Sulema Nicole NP 1 [facility], Level 2 [place] [address] documented as of this encounter [...] appear significantly changed from the prior study. us Kj Child MD IMG DIAGNOSTIC IMAGING O RDERABLES Final Result documented in this encounter Visit Diagnoses Diagnosis Neck pain- Primary Cervicalgia documented in this encounter Care Teams Load Out Worker Relationship Specialty Start Date End Date Juma Herrera MD [address] [facility] [place] [phone] PCP - General 09/25/12 12/07/18 documented as of this encounter
--- OUTSIDE RECORDS SUMMARY | 2024-09-17 09:15 | XMS_ITS | Encounter Summary ---
Author Organization [facility] Address [address] [place] [address] Care Team Providers Care Weed Eradicator Name Role Phone RosibelDonna barnes GIULIA Primary Care Provider [phone] Encounter Details Date Type Department Care Team (Latest Contact Info) Description 08/07/2012 13:56 EST - 08/07/2012 23:59 EST Hospital Encounter [facility] Neurophysiology - [facility] ([facility]) [address] [place] [address] Germaine Worthy MD Fries, Timothy James, MD Emg, MD Discharge Disposition: Home or [...] Code Departure Means Destination Home or Self Long Term documented in this encounter Procedure Notes * PHYSICIAN OFFICE NURSE, SCAN 2 - 08/13/2012 8108 ESTAssociated Order(s): ELECTROMYOGRAM - SCANNED documented in this encounter Plan of Treatment Upcoming Encounters Date Type Department Care Team (Late st Contact Info) Description 09/18/2024 11:00 EST Office Visit [facility] Bariatric Surgery - [address] [phone] Allen Thompson, PALizettC 111 [facility] 5 [place] [phone] 10/26/2024 10:45 EST Telemedicine [facility] Neurology - S [address] [address] Sulema Nicole NP [address] [place] [address] 2 [place] [phone] documented as of this encounter Procedures Procedure Name Priority Date/Time Associated Diagnosis Comments ELECTROMYOGRAM - SCANNED 08/13/2012 15:35 EST documented in this encounter Results * ELECTROMYOGRAM - SCANNED (08/13/2012 15:35 EST) 08/13/2012 15:3 5 EST Narrative 08/13/2012 15:36 EST Procedure Note PHYSICIAN OFFICE NURSE, SCAN 2 - 08/13/2012 15:35 EST us Scan 2 Reading Aide PROCEDURE/MINOR SURGICAL OR DERABLES Final Result documented in this encounter Visit Diagnoses Not on filedocumented in this encounter Care Teams Weed Eradicator Relationship Specialty Start Date End Date Donna Mohr NP [address] [place] [address] PCP - General 10/24/11 09/24/12 documented as of this encounter
--- OUTSIDE RECORDS SUMMARY | 2024-09-17 09:15 | XMS_ITS | Encounter Summary ---
Author Organization [facility] Address [address] [place] [address] Care Team Providers Care Facility Maintenance Helper Name Role Phone Donna Mohr NP Primary Care Provider [phone] Reason for Visit * Reason Comments Neck Pain Encounter Details Date Type Department Care Team (Late st Contact Info) Description 04/03/2012 15:00 EDT [facility] Visit [facility] Spine Program - [place] [address] Starr Hart PA-C Tarsal tunnel [...] Refills Last Filled Start Date End Date pregabalin (LYRICA) 25 mg capsuleIndications: Tarsal tunnel syndrome of right side,Idiopathic peripheral neuropathy [...] Info) Description 09/18/2024 11:00 EST Office Visit [facility] Bariatric Surgery - [place] [address] [address] [place], [place] [address] Allen Thompson PA-C 111 [facility] 5 [place] [phone] 10/26/2024 10:45 EST Telemedicine [facility] Neurology - [facility] 1 [place], [place] [address] Sulema Nicole NP 1 [facility] Level 2 [place] [phone] documented as of this encounter Visit Diagnoses [...] documented as of this encounter Care Teams Facility Maintenance Helper Relationship Specialty Start Date End Date Donna Mohr NP [address] [place] [address] PCP - General 10/24/11 09/24/12 documented as of this encounter
--- OUTSIDE RECORDS SUMMARY | 2024-09-17 09:15 | XMS_ITS | Encounter Summary ---
Author Organization [facility] Address [address] [place] [address] Care Team Providers Care Party Plan Sales Consultant Name Role Phone Donna Mohr NP Primary Care Provider Reason for Visit * Reason Onset Date Comments Medications Refill 08/21/2012 Encounter Details Date Type Department Care Team (Late st Contact Info) Description 08/21/2012 Refill [facility] Spine Program - Scout [facility] [place] [address] Bee Jackson [address] [place] [address] Medications Refill Social History Tobacco Use Types [...] Filled Start Date End Date pregabalin (LYRICA) 50 mg capsule Take 2 Caps by mouth 3 times daily. 180 Cap 3 08/21/2012 documented in this encounter Miscellaneous Notes * Telephone Encounter - Starr Hart PA - 08/21/2012 3007 EST Patient would like a refill on her Lyrica. documented in this encounter Plan of Treatment Upcoming Encounters Date Type Department Care Team (Late st Contact Info) Description 09/18/2024 11:00 EST Office Visit [facility] Bariatric Surgery - [place] [address] [place], [place] [address] Allen Thmopson, PA-C 111 [facility], [facility], Level 5 [place] [phone] 10/26/2024 10:45 EST Telemedicine [facility] Neurology - [address] [phone] Sulema Nicole NP 1 [facility], Level 2 [place] [address] documented as of this encounter [...] documented as of this encounter Care Teams Party Plan Sales Consultant Relationship Specialty Start Date End Date Donna Mohr NP [address] [place] [address] PCP - General 10/24/11 09/24/12 documented as of this encounter
--- OUTSIDE RECORDS SUMMARY | 2024-09-17 09:15 | XMS_ITS | Encounter Summary ---
Author Organization [facility] Address [address] [place] [address] Care Team Providers Care Molecular Modeler Name Role Phone Juma Herrera MD Primary Care Provider [phone] Reason for Referral * Consult, Test and Treat (Routine/Next Available) - Closed Specialty Diagnoses / Procedures Referred By Contmarco a t Referred To Contact Diagnoses Cervicalgia Kj Child MD Phone: tel: fax: Referral ID Status Reason Start Date Expiration Date V isits Requested Visits Authorized [id number] Closed Specialty Services Required 10/01/2012 1 1 Question Answer Reason for Request: Post-op PT Surgery (and Date): 09/29/12 Comments S/p C6-7 ACDF/allog/plate Reason for Visit * Reason Onset Date Comments Referral Request 10/01/2012 Encounter Details Date Type Department Care Team (Late st Contact Info) Description 10/01/2012 Orders Only [facility] Spine Program [place] [address] Becki Rea, RN [address] [place] [address] Cervicalgia (Primary Dx) Social History Tobacco Use [...] [facility] B[facility]ric Surgery - [place] [address] [place] [address] Allen Thompson PALizettC 111 [facility], [facility] Level 5 [place] [address] 10/26/2024 10:45 EST Telemedicine [facility] Neurology - S [address] [address] Sulema Nicole, GIULIA [address] [place] [address] 2 [place] [phone] Scheduled Referrals Name Type Priority Associated Diagnoses Orde r Schedule AMB CONSULT PHYSICAL THERAPY Outpatient Referral Routine Cervicalgia Ordered: 10/01/2012 documented as of this encounter Visit Diagnoses Diagnosis Cervicalgia- Primary documented in this encounter Care Teams Molecular Modeler Relationship Specialty Start Date End Date Juma Herrera MD [address] [facility] [place] [address] PCP - General 09/25/12 12/07/18 documented as of this encounter
--- OUTSIDE RECORDS SUMMARY | 2024-09-17 09:15 | XMS_ITS | Encounter Summary ---
Author Organization [facility] Address [address] [place] [address] Care Team Providers Care Equestrian Trainer Name Role Phone Juma Herrera MD Primary Care Provider [phone] Reason for Referral * Consult (Routine/Next Available) - Closed Specialty Diagnoses / Procedures Referred By Wili mireles Referred To Contact Diagnoses Dysesthesia Zachery Wlaters MD Phone: tel: fax: Abrahan Graves MD [address] [place] [phone] Phone: tel: fax: Referral ID Status Reason Start Date Expiration Date V isits Requested Visits Authorized [id number] Closed Specialty Services Required 11/05/2012 1 1 Question Answer Reason for Request: Skin biopsy from right dorsolateral foot, lateral calf and thigh Reason for Visit * Reason Comments Follow-up Encounter Details Date Type Department Care Team (Late st Contact Info) Description 11/05/2012 13:30 EST Office Visit [facility] Neurology - [address] [address] Zachery Walters MD [address] [place] [address], Level 2 [place] [address] Dysesthesia (Primary Dx) Social History Tobacco [...] MD - Job ID: SM Doc ID: [id number] Ext Doc ID: [id number] cc: GIULIA Byrne MD * Zachery Walters MD - 11/05/2012 1354 EST This office note has been dictated. documented in this encounter Plan of Treatment Upcoming Encounters Date Type Department Care Team (Late st Contact Info) Description 09/18/2024 11:00 EST Office Visit [facility] Bariatric Surgery - [address] [address] Allen Thompson PA-C 111 [facility], [facility], Level 5 [place] [phone] 10/26/2024 10:45 EST Telemedicine [facility] Neurology - [address] [place] 1 [place], [place] [address] Sulema Nicole, GIULIA 1 [facility], Level 2 [place] [address] Scheduled Referrals [...] changes made after this encounter. duloxetine (CYMBALTA) 60 mg capsule Take 60 mg by mouth daily. Take with 30mg cap to = 90mg dose 02/03/2015 added in this encounter Care Teams Equestrian Trainer Relationship Specialty Start Date End Date Juma Herrera MD [address] [facility] [place] [address] PCP - General 09/25/12 12/07/18 documented as of this encounter
--- OUTSIDE RECORDS SUMMARY | 2024-09-17 09:15 | XMS_ITS | Encounter Summary ---
Author Organization [facility] Address [address] [place] [address] Care Team Providers Care Event Representative Name Role Phone Juma Herrera MD Primary Care Provider [phone] Reason for Visit * Reason Comments Neck Pain Encounter Details Date Type Department Care Team (Late st Contact Info) Description 10/21/2012 12:45 EST Office Visit [facility] Spine Program - [address] [place] [address] Ana Rosa Mendoza MD [address] [place] [address] [place] [address] Cervicalgia (Primary Dx) Social History [...] Mendoza MD - 10/23/2012 0620 EST Spine [place] [facility] (SpINE) [facility] [address] [place] [address] PROGRESS/FOLLOWUP NOTE - 10/21/2012 PROBLEM: 1. [...] MD - AN Job ID: Doc ID: [id number] Ext Doc ID: [id number] cc: * Ana Rosa Mendoza MD - 10/21/2012 1400 EST This office note has been dictated. ANA ROSA MENDOZA MD documented in this encounter Plan of Treatment Upcoming Encounters Date Type Department Care Team (Late st Contact Info) Description 09/18/2024 11:00 EST Office Visit [facility] Bariatric Surgery - [place] [address] [address] [place], [place] [address] Allen Thompson PA-C 111 [facility], Level 5 [place] [phone] 10/26/2024 10:45 EST Telemedicine [facility] Neurology - S [place] 1 [place] [address] Sulema Nicole, CLINICAL TRIALS DATA COORDINATOR 1 [facility], Level 2 [place] [address] documented as of this encounter Visit Diagnoses Diagnosis Cervicalgia- Primary documented in this encounter Care Teams Event Representative Relationship Specialty Start Date End Date Juma Herrera MD [address] [facility] [place] [address] PCP - General 09/25/12 12/07/18 documented as of this encounter
--- OUTSIDE RECORDS SUMMARY | 2024-09-17 09:15 | XMS_ITS | Encounter Summary ---
Author Organization [facility] Address [address] [place] [address] Care Team Providers Care Patrol Officer Name Role Phone Onur Donna PLATT Primary Care Provider [phone] Encounter Details Date Type Department Care Team (Late Contact Info) Description 05/02/2012 Results Only Imaging [facility] Spine Program - Scout [facility] [place] [address] Starr Hart PA-C Social History [...] Department Care Team (Late Contact Info) Description 09/18/2024 11:00 EST Office Visit [facility] Bariatric Surgery - [address] [address] Allen Thompson PA-C [address] [facility], [facility], Level 5 [place] [address] 10/26/2024 10:45 EST Telemedicine [facility] Neurology - [address] [address] Sulema Nicole NP 1 [facility], Level 2 [place] [address] Pending Results Name Type Priority Associated Diagnoses Date /Time OUTSIDE CD - MRI NEURO Imaging 11:49 EDT OUTSIDE CD - MRI NEURO Imaging 11:49 EDT OUTSIDE CD - MRI NEURO Imaging 12:03 EDT documented as of this encounter Visit Diagnoses Not on filedocumented in this encounter Care Teams Patrol Officer Relationship Specialty Start Date End Date Donna Mohr NP [facility] [address] [place] [address] PCP - General 10/24/11 09/24/12 documented as of this encounter
--- OUTSIDE RECORDS SUMMARY | 2024-09-17 09:15 | XMS_ITS | Encounter Summary ---
Author Organization [facility] Address [address] [place] [address] Care Team Providers Care Senior Linux Administrator Name Role Phone Onur Donna PLATT Primary Care Provider [phone] Reason for Visit * Reason Onset Date Comments Appointment Related 04/02/2012 Encounter Details Date Type Department Care Team (Late st Contact Info) Description 04/02/2012 Telephone [facility] Foot & Ankle Program - [address] [address] Catalino Keys MD [address] [place] [address] Appointment Related Social History Tobacco Use [...] Scheduled for 07/23/12 [facility] 1 [facility] Eleonora Rolle 8.1.12 documented in this encounter Plan of Treatment Upcoming Encounters Date Type Department Care Team (Late st Contact Info) Description 09/18/2024 11:00 EST Office Visit [facility] Bariatric Surgery - [place] [address] [address] [place], [place] [address] Allen Thompson PALizettC [address] [facility], Level 5 [place] [phone] 10/26/2024 10:45 EST Telemedicine [facility] Neurology - S [address] [phone] Sulema Nicole NP [address] [place] [address] Level 2 [place] [address] documented as of this encounter Visit Diagnoses Not on filedocumented in this encounter Care Teams Senior Linux Administrator Relationship Specialty Start Date End Date Donna Mohr NP [address] [place] [address] PCP - General 10/24/11 09/24/12 documented as of this encounter
--- OUTSIDE RECORDS SUMMARY | 2024-09-17 09:15 | XMS_ITS | Encounter Summary ---
Author Organization [facility] Address [address] [place] [address] Care Team Providers Care Field Associate Name Role Phone Onur Donna PLATT Primary Care Provider [phone] Reason for Visit * Reason Onset Date Comments Medications Refill 05/29/2012 Encounter Details Date Type Department Care Team (Late st Contact Info) Description 05/29/2012 Refill [facility] Spine Program [place] [address] Starr Hart PA-C Medications Refill Social History Tobacco Use Types [...] Date pregabalin (LYRICA) 50 mg capsule Take 1 Cap by mouth 3 times daily. 90 Cap 2 05/29/2012 08/21/2012 documented in this encounter Miscellaneous Notes * Telephone Encounter - Nena Bo - 05/29/2012 2804 EDT Starr - patient calls in requesting refill of Lyrica to [facility] in [facility] be phoned in. Please advise. Nena Bo 05/29/2012 11:39 documented in this encounter Plan of Treatment Upcoming Encounters Date Type Department Care Team (Late st Contact Info) Description 09/18/2024 11:00 EST Office Visit [facility] Bariatric Surgery - [place] [address] [place] [address] Allen Thompson PA-C 111 [facility], [facility], Level 5 [place] [phone] 10/26/2024 10:45 EST Telemedicine [facility] Neurology - [address] [address] Sulema Nicole NP 1 [facility] Level 2 [place] [phone] documented as of this encounter Visit Diagnoses [...] documented as of this encounter Care Teams Field Associate Relationship Specialty Start Date End Date Donna Mohr [place] [address] [place] [address] PCP - General 10/24/11 09/24/12 documented as of this encounter
--- OUTSIDE RECORDS SUMMARY | 2024-09-17 09:15 | XMS_ITS | Encounter Summary ---
Author Organization [facility] Address [address] [place] [address] Care Team Providers Care Investigative Reporter Name Role Phone Juma Herrera MD Primary Care Provider [phone] Reason for Visit * Reason Onset Date Comments Appointment Related 09/25/2012 Encounter Details Date Type Department Care Team (Late st Contact Info) Description 09/25/2012 Telephone [facility] Spine Program - [address] [place] [address] Becki Rea, RN [address] [place] [address] Appointment Related Social History Tobacco Use Types [...] Office Visit [facility] Bariatric Surgery - [place] [address] [place] [address] Allen Thompson PALizettC 111 [facility], Level 5 [place] [phone] 10/26/2024 10:45 EST Telemedicine [facility] Neurology - [address] [address] Sulema Nicole, STAKES PLAYER 1 [facility], Level 2 [place] [address] documented as of this encounter Visit Diagnoses Not on filedocumented in this encounter Care Teams Investigative Reporter Relationship Specialty Start Date End Date Juma Herrera MD [address] [facility] [place] [address] PCP - General 09/25/12 12/07/18 documented as of this encounter
--- OUTSIDE RECORDS SUMMARY | 2024-09-17 09:15 | XMS_ITS | Encounter Summary ---
Author Organization [facility] Address [address] [place] [address] Care Team Providers Care Hotel Or Motel Manager Name Role Phone RosibeljonathaneverardoDonna GIULIA Primary Care Provider [phone] Reason for Visit * Reason Comments Neck Pain Arm Pain right Encounter Details Date Type Department Care Team (Latest Contact Info) Description 06/13/2012 9:30 EDT Office Visit [facility] Interventional Pain [address] [place], [place] [phone] [place] [address] [place] [address] Cervical radiculopathy (Primary Dx); Cervical [...] Instructions* Yamilka Macario - 06/13/2012 9:47 EDT [facility] [place] [address] Patient Instructions You have had your cervical [...] [place] : 1975 Date of Service: 06/13/2012 Dry Pan Feeder: Kavon Butler MD Interval History: Ms. [place] [...] Examination of the upper extremities reveal decreased over hauler helper strength on the right and right triceps [...] Management Rooming Note Does patient have a Custom Bike Builder? yes Is patient NPO? (Solids since midnight [...] encounter Miscellaneous Notes * Scanned Note-Null - STEEL LOADER, SCAN 2 - 06/13/2012 1204 EDT documented in this encounter Plan of Treatment Upcoming Encounters Date Type Department Care Team (Late st Contact Info) Description 09/18/2024 11:00 EST Office Visit [facility] Bariatric Surgery [address] [address] Allen Thompson, PALizettC 111 [facility] 5 [place] [phone] 10/26/2024 10:45 EST Telemedicine [facility] Neurology - [address] [phone] Sulema Nicole NP [address] [place] [address] Level 2 [place] [address] documented as of this encounter Visit Diagnoses Diagnosis Cervical radiculopathy- Primary Brachial neuritis or radiculitis nos 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
--- OUTSIDE RECORDS SUMMARY | 2024-09-17 09:15 | XMS_ITS | Encounter Summary ---
Author Organization [facility] Address [address] [place] [address] Care Team Providers Care Manager Center Name Role Phone Alejandra Herrera MD Primary Care Provider [phone] Encounter Details Date Type Department Care Team (Late st Contact Info) Description 09/29/2012 5:56 EST - 09/29/2012 11:46 EST Hospital Encounter [facility] Perioperative Services- [facility] [address] [place], [place] [address] Ana Rosa Mendoza MD [address] [place] [phone] Cervicalgia (Primary Dx) Discharge Disposition: Home [...] M.D. PGY-3 Orthopaedic Resident 09/29/2012 9:38 Pager: [phone] Cosigned by Ana Rosa Mendoza MD at 09/29/2012 11:38 EST documented in this encounter Discharge Instructions [...] Spine None 11/05/2012 13:30 Zachery Walters MD [facility] Neuro None 12/09/2012 13:30 Ana Rosa Mendoza MD Spine None Please do not take antiinflammatories (motrin, ibuprofen, etc) unless you have been told to. Contact the office immediately for any wound drainage or a severe headache when you stand up that goes away when you sit down. [facility] Patient Instructions Cervical Discectomy: What to [...] your doctor if you can take an [id number] medicine. Do not take two or more [...] Where can you learn more? Go to www.SNSplus.net/fahc Enter R489 in the search box to learn more about Cervical Discectomy: What to Expect at Home. ?? 2005 - 2008 [employer]. Care instructions adapted under license by [facility], [facility] . This care instruction is for use with your licensed healthcare professional. If you have questions about a medical condition or this instruction, always ask your healthcare professional. [employer] disclaims any warranty or liability for your [...] Units by mouth 2 times daily. 02/03/2015 Exeter-3 Fatty Acids-Vitamin E (FISH OIL) 1,000 mg [...] Date End Date prochlorperazine (COMPAZINE) 10 mg tablet Take 1 [...] Progress Notes * Fernando Degroot - 09/22/2012 0934 EST Tia Spain has been instructed as follows regarding medication administration for the day of the scheduled procedure. Date of Surgery: 09/29/2012 Instructions for Taking Medications Day of Surgery Medication Last Dose Hold DOS Take DOS Exeter-3 Fatty Acids-Vitamin E (FISH OIL) 1,000 mg [...] documented in this encounter H&P Notes * STEAK SAUCE MAKER, SCAN 2 - 10/02/2012 1428 EST * Ana Rosa Mendoza MD - [...] documented in this encounter Procedure Notes * STEAK SAUCE MAKER, SCAN 2 - 10/02/2012 1428 ESTAssociated Order(s): ECG REPORT - SCANNED documented in this encounter Nursing Notes * STEAK SAUCE MAKER, SCAN 2 - 10/02/2012 1428 EST documented in this encounter OR Notes * Anesthesia Preprocedure Evaluation - STEAK SAUCE MAKER, SCAN 2 - 10/06/2012 1406 EST * OR PreOp - STEAK SAUCE MAKER, SCAN 2 - 10/02/2012 1428 EST * OR Surgeon - Ana Rosa Mendoza MD - 09/29/2012 1316 EST OPERATIVE REPORT SERVICE DATE: 09/29/2012 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 POSTOPERATIVE DIAGNOSIS: C6-7 HNP. PROCEDURE: C6-7 anterior cervical diskectomy, interbody fusion with structural allograft and anterior Synthes plate. SURGEON: Ana Rosa Mendoza MD KETTLE CHIPPER: Marques Smith MD ANESTHESIA: General. ESTIMATED BLOOD [...] extracted with a pituitary, a vertebral body pole setter placed in the interspace. A rent in [...] / Ana Rosa Mendoza MD mt Confirmation: [id number] Dictation ID: [id number] * Anesthesia Procedure Notes - STEAK SAUCE MAKER, SCAN 2 - 09/29/2012 0942 EST * OR PreOp - STEAK SAUCE MAKER, SCAN 2 - 09/29/2012 0940 EST documented in this encounter Miscellaneous Notes * Scanned Note-Null - STEAK SAUCE MAKER, SCAN 2 - 10/02/2012 1428 EST * Scanned Note-Null - STEAK SAUCE MAKER, SCAN 2 - 10/02/2012 1428 EST * Scanned Note-Null - STEAK SAUCE MAKER, SCAN 2 - 10/02/2012 1428 EST * [...] Orthopedic Surgery BRIEF OPERATIVE NOTE Date: 09/29/2012 Tank Pumper Panelboard : Ana Rosa Mendoza MD Export Traffic Department Manager : Octavio Smith M.D. Preoperative Diagnosis : [...] diet Marques Smith M.D. 09/29/2012 9:33 Pager: [phone] * Scanned Note-Null - STEAK SAUCE MAKER, SCAN 2 - 09/29/2012 0601 EST * Scanned Note-Null - STEAK SAUCE MAKER, SCAN 2 - 09/29/2012 0601 EST * Scanned Note-Null - STEAK SAUCE MAKER, SCAN 2 - 09/29/2012 06 EST documented in this encounter Plan of Treatment Upcoming Encounters Date Type Department Care Team (Late st Contact Info) Description 09/18/2024 11:00 EST Office Visit [facility] Bariatric Surgery - [place] [address] [place] [address] Allen Thompson PA-C [address] [place] [address] 5 [place] [phone] 10/26/2024 10:45 EST Telemedicine [facility] Neurology - [address] [address] Sulema Nicole NP [address] [place] [address] 2 [place] [phone] documented as of this encounter Procedures Procedure [...] EST Narrative 10/02/2012 14:46 EST Procedure Note STEAK SAUCE MAKER, SCAN 2 - 10/02/2012 14:28 EST us Scan 2 Stone Spreader Operator PROCEDURE/MINOR SURGICAL OR DERABLES Final Result * CERVICAL SPINE 1 VIEW (09/29/2012 9:32 [...] with the findings. Ana Rosa Mendoza MD [facility] DIAGNOSTIC IMAGING O RDERABLES Final Result * CERVICAL SPINE 1 VIEW (09/29/2012 9:05 [...] material is identified. Ana Rosa Mendoza MD [facility] DIAGNOSTIC IMAGING O RDERABLES Final Result * CERVICAL SPINE 1 VIEW (09/29/2012 8:23 [...] interpretation and agree with the findings. us Ana Rosa Mendoza MD IMG DIAGNOSTIC IMAGING O RDERABLES Final Result * CERVICAL SPINE 1 VIEW (09/29/2012 8:00 [...] directed at the C5 vertebral body level. us Ana Rosa Mendoza MD IMG DIAGNOSTIC IMAGING O RDERABLES Final Result * TYPE AND SCREEN (09/29/2012 7:06 EST) ABO A [facility] Rh Factor Positive [facility] Antibody Screen Negative [facility] Comment:SPECIMEN EXPIRES AT 23:59 ON 10/02/2012 09/29/2012 7:06 EST Germaine Whelan MD BLOOD BANK TESTS Rhoda l Result [facility] [address] [place] [address] documented in this encounter Visit Diagnoses Diagnosis [...] may reflect changes made after this encounter. Hydrocodone-Aceta minophen (VICODIN ES) 7.5-300 mg Tab Take by mouth every 6 hours. 09/29/2012 cholecalciferol, Vitamin D3, 1,000 unit tablet Take 1,000 Units by mouth 2 times daily. 02/03/2015 Exeter-3 Fatty Acids-Vitamin E (FISH OIL) 1,000 mg [...] Pre Op Day of Surgery 0650 (New Bag - Prov ider: Lyla Van RN) PRN [...] red Date NOTIFY PPS PACU PATIENT DISCHARGE 1 013 NOTIFY PPS PATIENT ARRIVAL IN PACU 1 2012 Discharge Count Last Ordered Date First Orde red Date DISCHARGE PATIENT 1 09/29/2012 documented in this encounter Care Teams Manager Center Relationship Specialty Start Date End Date Alejandra Herrera MD [address] [facility] [place] [place] [phone] PCP - General 09/25/12 12/07/18 documented as of this encounter
--- OUTSIDE RECORDS SUMMARY | 2024-09-17 09:15 | XMS_ITS | Encounter Summary ---
Author Organization [facility] Address [address] [place] [address] Care Team Providers Care Poker Manager Name Role Phone Juma Herrera MD Primary Care Provider [phone] Reason for Visit * Reason Onset Date Comments Appointment Related 11/13/2012 called with skin biopsy appt with Dr. Graves for 01/07 Encounter Details Date Type Department Care Team (Late st Contact Info) Description 11/13/2012 Telephone [facility] Neurology - S [address] [phone] Zachery Walters MD [address] [place] [address] Level 2 [place] [phone] Appointment Related (called with skin [...] [facility] - [place] [address] [place], [place] [address] Allen Thompson PALizettC 111 [facility], Level 5 [place] [phone] 10/26/2024 10:45 EST Telemedicine [facility] Neurology - [address] [phone] Sulema Nicole NP [address] [place] [address] Level [address] [place] [address] documented as of this encounter Visit Diagnoses Not on filedocumented in this encounter Care Teams Poker Manager Relationship Specialty Start Date End Date Juma Herrera MD [address] [facility] [address] PCP - General 09/25/12 12/07/18 documented as of this encounter
--- OUTSIDE RECORDS SUMMARY | 2024-09-17 09:15 | XMS_ITS | Encounter Summary ---
Author Organization [facility] Address [address] [place] [address] Care Team Providers Care Director Corporate Communications Name Role Phone Juma Herrera MD Primary Care Provider [phone] Reason for Referral * Radiology Services (Routine/Next Available) - Closed Specialty Diagnoses / Procedures Referred By Contmarco a t Referred To Contact Diagnoses Neck pain Procedures CERVICAL SPINE 4 OR MORE VIEWS Kj Song PA-C Phone: tel: fax: Referral ID Status Reason Start Date Expiration Date Visits Re quested Visits Authorized [id number] Closed 09/10/2013 1 1 Reason for Visit * Reason Comments Neck Pain Encounter Details Date Type Department Care Team (Late st Contact Info) Description 09/10/2013 10:15 EST Office Visit [facility] Spine Program - [address] [place] [address] Kj Song PA-C [address] [place] [address] [place] [address] Neck pain (Primary Dx); Cervical [...] Refills Last Filled Start Date End Date HYDROcodone-acetam inophen (NORCO) 5-325 mg per tablet Take 1 Tab by mouth every 6 hours as needed for Pain. 60 Each 0 09/10/2013 5 methylPREDNISolone (MEDROL DOSEPACK) 4 mg tablet follow package directions 1 Each 0 09/10/2013 5 documented in this encounter Progress Notes [...] has not seen a physical therapist, received care transition coordinator, injection therapy and 50% of her discomfort [...] Office Visit [facility] Bariatric Surgery - [address] [address] Allen Thompson PA-C 111 [facility], Level 5 [place] [phone] 10/26/2024 10:45 EST Telemedicine [facility] Neurology - [address] [phone] Sulema Nicole NP [address] [place] [address], Level 2 [place] [phone] documented as of this encounter Procedures Procedure [...] disc disease at C5-6. No instability. Kj Song PA-C IMG DIAGNOSTIC IMAGING ORDERA BLES Final Result documented in this encounter Visit Diagnoses Diagnosis Neck pain- Primary Cervicalgia Cervical radiculopathy Brachial neuritis or radiculitis nos documented in this encounter Care Teams Director Corporate Communications Relationship Specialty Start Date End Date Juma Herrera MD [address] [place] [address] PCP - General 09/25/12 12/07/18 documented as of this encounter
--- OUTSIDE RECORDS SUMMARY | 2024-09-17 09:16 | XMS_ITS | Encounter Summary ---
Author Organization [facility] Address [address] [place] [address] Care Team Providers Care Track Service Worker Name Role Phone Unavailable Primary Care Provider Unavailabl e Encounter Details Date Type Department Care Team (Late st Contact Info) Description 01/14/2007 10:48 EDT - 01/17/2007 11:59 EDT Hospital Encounter [facility] General Surgery Unit [address] [place], [place] [address] Kj Child MD [address] [place] [address] [place] [address] Discharge Disposition: Home or Self Care Social History Tobacco Use Types Packs/Day Years Used Date Smoking Tobacco: Never Assessed Comments Unknown Sex and Gender Information Value [...] SURGEON: Wilfrid Taylor MDRobert D Monsey, MD FINANCIAL PLANNING ANALYST: Marques Oseguera MD PREOPERATIVE DIAGNOSIS L5 isthmic [...] Charmaine Child MD Ziggy rocha Job ID: [id number] Document ID: [id number] cc: MD Meche Peres PA Lloyd Thompson, MD Michael T Walsh, MD documented in this encounter Plan of Treatment Upcoming Encounters Date Type Department Care Team (Late st Contact Info) Description 09/18/2024 11:00 EST Office Visit [facility] Bariatric Surgery - [address] [address] Allen Thompson PA-Khushbu [address] [place] [address] 5 [place] [phone] 10/26/2024 10:45 EST Telemedicine [facility] Neurology - [address] [address] Sulema Nicole NP [address] [place] [address] 2 [place] [phone] documented as of this encounter Procedures Procedure [...] Serum 94 70 - 100 mg/dl [facility] 01/17/2007 6:10 EDT 01/17/2007 6:41 EDT Kj Child MD CHEMISTRY & BLOOD GAS OR DERABLES Final Result Performing Organization Address [facility] de Phone Number [facility] [address] [place] [address] * (ABNORMAL) ELECTROLYTES (01/17/2007 6:10 EDT) Pathologist [facility] Sodium 135(L) 136 - 145 mEq/L [facility] Potassium 3.6 3.5 - 5.0 mEq/L [facility] Chloride 99 96 - 110 mEq/L [facility] CO2 28 24 - 32 mEq/L [facility] 01/17/2007 6:10 EDT 01/17/2007 6:41 EDT Kj Child MD CHEMISTRY & BLOOD GAS OR DERABLES Final Result Performing Organization Address [facility] de Phone Number [facility] [address] [place] [address] * (ABNORMAL) CREATININE (01/17/2007 6:10 EDT) Pathologist [facility] Creatinine 0.65(L) 0.7 - 1.5 mg/dl [facility] GFR, Calculated >60 ml/min/1.7 3m2 [facility] 01/17/2007 6:10 EDT 01/17/2007 6:41 EDT Kj Child MD CHEMISTRY & BLOOD GAS OR DERABLES Final Result Performing Organization Address [facility] de Phone Number [facility] [address] [place] [address] * (ABNORMAL) HEMAGRAM AND DIFFERENTIAL (01/17/2007 6:10 EDT) Pathologist [facility] WBC 9.10 4.0 - 12.4 K/cmm [facility] RBC 3.35(L) 3.86 - 5.04 M/cmm [facility] Hemoglobin 10.5(L) 11.6 - 15.2 gm/dl [facility] HCT 31.0(L) 34.9 - 44.4 % [facility] MCV 93 81 - 98 fl [facility] MCH 31.3 26.7 - 33.3 pg [facility] MCHC 33.8 32.1 - 35.9 gm/dl [facility] PLT 211 141 - 320 K/cmm [facility] RDW-CV 13.5 11.7 - 14.6 % [...] [facility] Type of Diff: Automated [facility] 01/17/2007 6:10 EDT 01/17/2007 6:41 EDT us Kj Child MD PACKAGES & DNA PROBE ORD ERABLES Final Result [facility] [address] [place] [address] * (ABNORMAL) BUN (01/17/2007 6:10 EDT) BUN 5(L) 10 - 26 mg/dl [facility] 01/17/2007 6:10 EDT 01/17/2007 6:41 EDT us Kj Child MD CHEMISTRY & BLOOD GAS OR DERABLES Final Result [facility] [address] [place] [address] * L SPINE 2-3 VIEWS (01/16/2007 9:49 [...] the findings. Marques Oseguera MD IMG DIAGNOSTIC IMAGING ORDERA BLES Final Result * GLUCOSE, SERUM (01/16/2007 6:10 EDT) Pathologist [facility] Glucose, Serum 85 70 - 100 mg/dl [facility] 01/16/2007 6:10 EDT 01/16/2007 7:06 EDT us Kj Child MD CHEMISTRY & BLOOD GAS OR DERABLES Final Result Performing Organization Address [facility] Co de Phone Number [facility] [address] [place] [address] * ELECTROLYTES (01/16/2007 6:10 EDT) Pathologist [facility] Sodium 139 136 - 145 mEq/L [facility] Potassium 3.5 3.5 - 5.0 mEq/L [facility] Chloride 106 96 - 110 mEq/L [facility] CO2 29 24 - 32 mEq/L [facility] 01/16/2007 6:10 EDT 01/16/2007 7:06 EDT Kj Child MD CHEMISTRY & BLOOD GAS OR DERABLES Final Result Performing Organization Address [facility] Co de Phone Number [facility] [address] [place] [address] * CREATININE (01/16/2007 6:10 EDT) Pathologist [facility] Creatinine 0.75 0.7 - 1.5 mg/dl [facility] GFR, Calculated >60 ml/min/1.7 3m2 [facility] 01/16/2007 6:10 EDT 01/16/2007 7:06 EDT Kj Child MD CHEMISTRY & BLOOD GAS OR DERABLES Final Result Performing Organization Address [facility] Co de Phone Number [facility] [address] [place] [address] * (ABNORMAL) HEMAGRAM AND DIFFERENTIAL (01/16/2007 6:10 EDT) WBC 11.02 4.0 - 12.4 K/cmm [facility] RBC 3.32(L) 3.86 - 5.04 M/cmm [facility] Hemoglobin 10.6(L) 11.6 - 15.2 gm/dl [facility] HCT 30.3(L) 34.9 - 44.4 % [facility] MCV 91 81 - 98 fl [facility] MCH 31.8 26.7 - 33.3 pg [...] Monocytes 12.5(H) 1.8 - 12.0 % [facility] % Eosinophils 0.7 0.6 - 6.9 [...] of Diff: Automated [facility] 01/16/2007 6:10 EDT 01/16/2007 7:06 EDT us Kj Child MD PACKAGES & DNA PROBE ORD ERABLES Final Result [facility] [address] [place] [address] * (ABNORMAL) BUN (01/16/2007 6:10 EDT) BUN 4(L) 10 - 26 mg/dl [facility] 01/16/2007 6:10 EDT 01/16/2007 7:06 EDT us Kj Child MD CHEMISTRY & BLOOD GAS OR DERABLES Final Result [facility] [address] [place] [address] * (ABNORMAL) UA WITH MICROSCOPIC (01/16/2007 0:27 EDT) Color, UA Yellow [facility] Clarity, UA Clear [facility] Glucose, UA Norm NORM [facility] Bilirubin, UA Neg NEG [facility] Ketones, UA Mod(A) NEG [facility] Specific [place], Urine >1.030(H) 1.005 - 1.02 [facility] Blood, UA Neg NEG [facility] pH, UA 5.5 5.0 - 9.0 [facility] Protein, UA Neg NEG [facility] Urobilinogen, UA Norm NORM mg/dL [facility] Nitrite, UA Neg NEG [facility] Leuk Esterase Neg NEG [facility] WBC, UA less than 1 0 - 5 /HPF [facility] Comment:LESS THAN 12CC SUBMI TTED RBC, UA less than 1 0 - 5 /HPF [facility] Squam Epithel, UA Few(A) NS /HPF [facility] Renal Epithel, UA None seen NS /HPF [facility] Bacteria, UA None seen NS /HPF [facility] Crystals, UA None seen /HPF [facility] Hyaline Casts, UA None seen /LPF [facility] UA Comment Microscopic results are unreliable on urines unrefrig >2hrs or refrig >8hrs. [facility] Mucus, UA Present [facility] Refractometer SG,Urine 1.017 1.005 - 1.02 [facility] 01/16/2007 0:27 EDT 01/16/2007 0:27 EDT us Kj Child MD URINALYSIS ORDERABLES Fi nal Result Performing Organization Address [facility] de Phone Number [facility] [address] [place] [address] * GLUCOSE, SERUM (01/15/2007 5:40 EDT) Glucose, Serum 91 70 - 100 mg/dl [facility] 01/15/2007 5:40 EDT 01/15/2007 6:02 EDT us Kj Child MD CHEMISTRY & BLOOD GAS OR DERABLES Final Result Performing Organization Address [facility] Phone Number [facility] [address] [place] [address] * ELECTROLYTES (01/15/2007 5:40 EDT) Sodium 140 136 - 145 mEq/L [facility] Potassium 4.0 3.5 - 5.0 mEq/L [facility] Chloride 105 96 - 110 mEq/L [facility] CO2 28 24 - 32 mEq/L [facility] 01/15/2007 5:40 EDT 01/15/2007 6:02 EDT us Kj Child MD CHEMISTRY & BLOOD GAS OR DERABLES Final Result Performing Organization Address [facility] de Phone Number [facility] [address] [place] [address] * CREATININE (01/15/2007 5:40 EDT) Creatinine 0.71 0.7 - 1.5 mg/dl [facility] GFR, Calculated >60 ml/min/1.7 3m2 [facility] 01/15/2007 5:40 EDT 01/15/2007 6:02 EDT us Kj Child MD CHEMISTRY & BLOOD GAS OR DERABLES Final Result [facility] [address] [place] [address] * (ABNORMAL) HEMAGRAM AND DIFFERENTIAL (01/15/2007 5:40 EDT) WBC 9.37 4.0 - 12.4 K/cmm [facility] RBC 3.50(L) 3.86 - 5.04 M/cmm [...] LAB 01/15/2007 5:40 EDT 01/15/2007 6:02 EDT us Kj Child MD PACKAGES & DNA PROBE ORD ERABLES Final Result [facility] [address] [place] [address] * (ABNORMAL) BUN (01/15/2007 5:40 EDT) BUN 8(L) 10 - 26 mg/dl [facility] 01/15/2007 5:40 EDT 01/15/2007 6:02 EDT us Kj Child MD CHEMISTRY & BLOOD GAS OR DERABLES Final Result Performing Organization Address City/State/[facility] Co de Phone Number [facility] [address] [place] [address] * L SPINE 1 VIEW (01/14/2007 16:21 [...] interpretation and agree with the findings. us Kj Child MD IMG DIAGNOSTIC IMAGING O RDERABLES Final Result documented in this encounter Visit Diagnoses Not on filedocumented in this encounter
--- OUTSIDE RECORDS SUMMARY | 2024-09-17 09:16 | XMS_ITS | Encounter Summary ---
Author Organization [facility] Address [address] [place] [address] Care Team Providers Care Rod Mill Operator Name Role Phone RosibeljonathaneverardoDonna GIULIA Primary Care Provider [phone] Reason for Visit * Reason Onset Date Comments Advice Only 01/25/2012 Encounter Details Date Type Department Care Team (Late st Contact Info) Description 01/25/2012 Telephone [facility] Foot & Ankle Program - [address] [address] Gabriel Keys MD [address] [place] [phone] Advice Only Social History Tobacco Use [...] Office Visit [facility] Bariatric Surgery - [place] [address] [place], [place] [address] Allen Thompson PA-C 111 [facility] [address] [place] [phone] 10/26/2024 10:45 EST Telemedicine [facility] Neurology - [address] [phone] Sulema Nicole NP [address] [place] [address] Level [address] [place] [phone] documented as of this encounter Visit Diagnoses Not on filedocumented in this encounter Care Teams Rod Mill Operator Relationship Specialty Start Date End Date Donna Mohr NP [address] [place], [place] [address] PCP - General 10/24/11 09/24/12 documented as of this encounter
--- OUTSIDE RECORDS SUMMARY | 2024-09-17 09:16 | XMS_ITS | Encounter Summary ---
Author Organization [facility] Address [address] [place] [address] Care Team Providers Care Political Science Chair Name Role Phone Onur Donna GIULIA Primary Care Provider [phone] Encounter Details Date Type Department Care Team (Latest Contact Info) Description 10/31/2011 10:30 EST - 10/31/2011 16:06 EST Hospital Encounter [facility] Perioperative Services - [facility] [address] [place] [phone] Gabirel Keys MD [address] [place] [phone] Tarsal tunnel syndrome of right side [...] If there are any questions, please call [phone] and ask for Pat Agnieszka documented in [...] Refills Last Filled Start Date End Date oxycodone (ROXICODONE) 5 mg immediate release tablet Take 1-2 Tabs by mouth every 4 hours as needed for Pain. 60 Tab 0 10/31/2011 12/17/2011 documented in this encounter Discharge Disposition Disposition Code Departure Means Destination Home or Self Care documented in this encounter Progress Notes * PELLETISING EXTRUDER OPERATOR, KAYKAY 2 - 11/02/2011 1240 EST * EddieBrit brooks RN - 10/31/2011 1548 EST Uneventful pacu course thus far. VSS. Pain and nausea improving. Taking po. CMST's RLE WNL. Family visiting. * Angely Johnson RN - 10/24/2011 0831 EST Tia Spain has been instructed as [...] documented in this encounter H&P Notes * PELLETISING EXTRUDER OPERATOR, SCAN 2 - 11/02/2011 1240 EST * [...] documented in this encounter Procedure Notes * PELLETISING EXTRUDER OPERATOR, SCAN 2 - 11/02/2011 1239 ESTAssociated Order(s): ECG REPORT - SCANNED * PELLETISING EXTRUDER OPERATOR, SCAN 2 - 11/02/2011 1239 ESTAssociated Order(s): ORDERS - SCANNED documented in this encounter OR Notes * OR PreOp - PELLETISING EXTRUDER OPERATOR, SCAN 2 - 11/02/2011 1240 EST * OR Surgeon - Gabriel Keys MD - 11/01/2011 0744 EST OPERATIVE REPORT SERVICE DATE: 10/31/2011 SURGEON: Gabriel Keys MD THREAD DRAWER: Gabriel Warner MD PREOPERATIVE DIAGNOSIS: Right tarsal [...] Overlying fascial bands were released until a Burke could easily be passed without any obstruction [...] PM / Gabriel Warner MD ss Confirmation: [id number] Dictation ID: [id number] * Anesthesia Preprocedure Evaluation - PELLETISING EXTRUDER OPERATOR, SCAN 2 - 10/31/2011 1547 EST * Anesthesia Procedure Notes - PELLETISING EXTRUDER OPERATOR, SCAN 2 - 10/31/2011 1453 EST * OR PreOp - PELLETISING EXTRUDER OPERATOR, SCAN 2 - 10/31/2011 1421 EST documented in this encounter Miscellaneous Notes * Scanned Note-Null - PELLETISING EXTRUDER OPERATOR, SCAN 2 - 11/02/2011 1240 EST * Scanned Note-Null - PELLETISING EXTRUDER OPERATOR, SCAN 2 - 11/02/2011 1239 EST * Anesthesia Post-Eval - Gabriel Pack S - 10/31/2011 [...] Note - Gabriel Keys MD - 10/31/2011 1440 EST Brief Operative Report Surgeon: Gabriel Keys [...] [facility] - [place] [address] [place] [address] Allen Thompson PA-C 111 [facility] 5 [place] [phone] 10/26/2024 10:45 EST Telemedicine [facility] Neurology - [address] [phone] Sulema Nicole NP [address] [place] [address] 2 [place] [phone] documented as of this encounter Procedures Procedure Name Priority Date/Time Associated Diagnosis Comments ECG REPORT - SCANNED 11/02/2011 12:39 EST ORDERS - SCANNED 11/02/2011 12:3 9 EST documented in this encounter Results * ORDERS - SCANNED (11/02/2011 12:39 EST) 11/02/2011 12:3 9 EST Narrative Transcriptions PELLETISING EXTRUDER OPERATOR, SCAN 2 - 11/02/2011 12:39 EST us Scan 2 Travel Ticketing Reviewer ADMISSION ORDERABLES Final Result * ECG REPORT - SCANNED (11/02/2011 12:39 EST) 11/02/2011 12:3 9 EST Narrative Transcriptions PELLETISING EXTRUDER OPERATOR, SCAN 2 - 11/02/2011 12:39 EST us Scan 2 Travel Ticketing Reviewer PROCEDURE/MINOR SURGICAL OR DERABLES Final Result documented [...] reflect changes made after this encounter. methylphenidate (RITALIN SR; METADATE ER; METHYLIN ER) [...] Brit Morgan RN)1528 (Given - Provider: Brit Morgan RN) ondansetron (PF) (ZOFRAN) injection 2-4 mg (COMPLETED) [...] 10/31/2011 documented in this encounter Care Teams Political Science Chair Relationship Specialty Start Date End Date Donna Mohr NP [address] [place] [address] PCP - General 10/24/11 09/24/12 documented as of this encounter
--- OUTSIDE RECORDS SUMMARY | 2024-09-17 09:16 | XMS_ITS | Encounter Summary ---
Author Organization [facility] Address [address] [place] [address] Care Team Providers Care Legal Technician Name Role Phone Unavailable Primary Care Provider Unavailabl e Encounter Details Date Type Department Care Team (Late st Contact Info) Description 07/17/2007 Before PRISM Converted Visit (Maple) [facility] - Maple conversion [address] [place], [place] [phone] Kj Child MD [address] [place] [address] [place] [address] Social History Tobacco Use Types Packs/Day Years Used Date Smoking Tobacco: Never Assessed Comments Unknown Sex and Gender Information Value Date Recorded Sex Assigned at Not on file Legal Sex Female 14:17 EST Gender Identity Female 10/05/2021 12:31 EST Sexual Orientation Not on file documented as of this encounter Progress Notes * Kj Child MD - 07/13/2009 1412 EST [facility] (SpINE) Orthopaedics and Rehabilitation [address] [place] [address] PROGRESS/FOLLOWUP NOTE - 07/17/2007 Primary Care Provider: [...] Kj Child MD - agustina Job ID: [id number] Doc ID: [id number] cc: MD agustina Flores Job ID: [id number] Doc ID: [id number] cc: Brian Lindsay MD documented in this encounter Plan of Treatment Upcoming Encounters Date Type Department Care Team (Late st Contact Info) Description 09/18/2024 11:00 EST Office Visit [facility] Bariatric Surgery - [address] [address] Allen Thompson PA-C [address] [facility], Level 5 [place] [phone] 10/26/2024 10:45 EST Telemedicine [facility] Neurology - S [address] [phone] Sulema Nicole NP 1 [facility], Level 2 [place] [phone] documented as of this encounter Visit Diagnoses Not on filedocumented in this encounter
--- OUTSIDE RECORDS SUMMARY | 2024-09-17 09:16 | XMS_ITS | Encounter Summary ---
Author Organization [facility] Address [address] [place] [address] Care Team Providers Care Relations Director Name Role Phone Brian Lindsay MD Primary Care Provider Unavail able Reason for Visit * Reason Comments Foot Pain right ankle/foot. MR I take yesterday. Encounter Details Date Type Department Care Team (Late st Contact Info) Description 08/16/2011 11:30 EST Office Visit [facility] Foot & Ankle Program - [address] [address] Catalino Keys MD [address] [place] [address] Os trigonum; Tarsal tunnel syndrome [...] Refills Last Filled Start Date End Date gabapentin (NEURONTIN) 300 mg capsuleIndications: Foot pain, right Take 1 Cap by mouth [...] Office Visit [facility] Bariatric Surgery - [place] [address] [place] [address] Allen Thompson, PA-C 111 [facility] Level 5 [place] [phone] 10/26/2024 10:45 EST Telemedicine [facility] Neurology - [address] [phone] Sulema Nicole, HONING MACHINE TRY OUT SETTER [address] [place] [address] Level 2 [place] [phone] documented as of this encounter Visit Diagnoses [...] documented as of this encounter Care Teams Relations Director Relationship Specialty Start Date End Date Brian Lindsay MD PCP - General 04/11/11 10/23/11 documented as of this encounter
--- OUTSIDE RECORDS SUMMARY | 2024-09-17 09:16 | XMS_ITS | Encounter Summary ---
Author Organization [facility] Address [address] [place] [address] Care Team Providers Care Putty Worker Name Role Phone Unavailable Primary Care Provider Unavailabl e Encounter Details Date Type Department Care Team (Late st Contact Info) Description 02/24/2007 12:20 EDT Hospital Encounter [facility] - Maple conversion [address] [place] [address] Kj Child MD [address] [place] [phone] Discharge Disposition: Auto Discharge Social History [...] Description 09/18/2024 11:00 EST Office Visit [facility] Bariatric Surgery - [address] [address] Allen Thompson PA-C 111 [facility], Level [address] [place] [address] 10/26/2024 10:45 EST Telemedicine [facility] Neurology - S [address] [address] Sulema Nicole, PLANT PATHOLOGIST 1 [facility], Level [address] [place] [address] documented as of this encounter [...] significantly from a radiographic point of view. us Kj Child MD IMG DIAGNOSTIC IMAGING O RDERABLES Final Result documented in this encounter Visit Diagnoses Not on filedocumented in this encounter
--- OUTSIDE RECORDS SUMMARY | 2024-09-17 09:16 | XMS_ITS | Encounter Summary ---
Author Organization [facility] Address [address] [place] [address] Care Team Providers Care Appraiser Name Role Phone Brian Lindsay MD Primary Care Provider Unavail able Reason for Referral * Consult (Routine) - Closed Specialty Diagnoses / Procedures Referred By Wili mireles Referred To Contact Orthopedic Surgery Diagnoses Tarsal tunnel syndrome Kj Song PA-C Phone: tel: fax: [facility] [place] [address] Referral ID Status Reason Start Date Expiration Date V isits Requested Visits Authorized [id number] Closed Specialty Services Required 06/15/2011 1 1 Question Answer Reason for Request: tarsal tunnel syndrome Reason for Visit * Reason Comments Follow-up EMG follow up Encounter Details Date Type Department Care Team (Late st Contact Info) Description 06/15/2011 11:30 EDT Office Visit [facility] Spine Program - [address] [place], [place] [phone] Kj Song PA-C 192 [facility] [place] [address] Tarsal tunnel syndrome (Primary Dx); Low back pain Social History Tobacco Use Types Packs/Day Years Used Date Smoking Tobacco: Former Cigarettes Q uit: 01/13/2009 Alcohol Use Standard Drinks/Week Comments Yes 0 (1 standard drink = 0.6 oz pur e alcohol) Comments Unknown Sex and Gender Information Value [...] Visit [facility] Bariatric Surgery - [place] [address] [place] [address] Allen Thompson, PA-C [address] [place] [address], Level 5 [place] [phone] 10/26/2024 10:45 EST Telemedicine [facility] Neurology - [address] [phone] Sulema Nicole NP [address] [place] [address] Level 2 [place] [phone] Scheduled Referrals Name Type Priority Associated Diagnoses Order Schedule AMB CONSULT ORTHOPEDICS Outpatient Referral Routine Tarsal tunnel syndrome Ordered: 06/15/2011 documented as of this encounter Visit Diagnoses Diagnosis Tarsal tunnel syndrome- Primary Low back pain Lumbago documented in this encounter Care Teams Appraiser Relationship Specialty Start Date End Date Brian Lindsay MD PCP - General 04/11/11 10/23/11 documented as of this encounter
--- OUTSIDE RECORDS SUMMARY | 2024-09-17 09:16 | XMS_ITS | Encounter Summary ---
Author Organization [facility] Address [address] [place] [address] Care Team Providers Care Hospital Corpsman Name Role Phone Brian Lindsay MD Primary Care Provider Unavail able Reason for Visit * Reason Comments Back Pain Encounter Details Date Type Department Care Team (Late st Contact Info) Description 05/16/2011 10:00 EDT Office Visit [facility] Spine Program - [address] [place] [address] Kj Song PA-C [address] [place], [place] [address]ey [facility] [place] [address] Low back pain (Primary Dx) [...] by everything. She finds relief only with intensive care ambulance paramedic. She had seen a physical therapist and a supervisor production managing and was diagnosed with plantar fasciitis. She [...] [facility] Bariatric Surgery - [place] [address] [place] [address] Allen Thompson PA-C 111 [facility], Level 5 [place] [phone] 10/26/2024 10:45 EST Telemedicine [facility] Neurology - [place] 1 [place], [place] [phone] Sulema Nicole NP 1 [facility], Level 2 [place] [address] documented as of this encounter [...] plain films. Kj Song PA-C [facility] DIAGNOSTIC IMAGING ORDERA BLES Final Result documented in this encounter Visit Diagnoses Diagnosis Low back pain- Primary Lumbago documented in this encounter Historical Medications * This list may reflect changes made after this encounter. duloxetine (CYMBALTA) 30 mg capsule Take 3 [...] 06/18/2011 added in this encounter Care Teams Hospital Corpsman Relationship Specialty Start Date End Date Brian Lindsay MD PCP - General 04/11/11 10/23/11 documented as of this encounter
--- OUTSIDE RECORDS SUMMARY | 2024-09-17 09:16 | XMS_ITS | Encounter Summary ---
Author Organization [facility] Address [address] [place] [address] Care Team Providers Care Data Warehouse Developer Name Role Phone Unavailable Primary Care Provider Unavailabl e Encounter Details Date Type Department Care Team (Late st Contact Info) Description 04/10/2007 Before PRISM Converted Visit (Maple) [facility] - Maple conversion [address] [place] [address] Kj Child MD [address] [place] [address] [place] [address] Social History Tobacco Use Types Packs/Day Years Used Date Smoking Tobacco: Never Assessed Comments Unknown Sex and Gender Information Value Date Recorded Sex Assigned at Not on file Legal Sex Female 14:17 EST Gender Identity Female 10/05/2021 12:31 EST Sexual Orientation Not on file documented as of this encounter Progress Notes * Kj Child MD - 07/09/2009 0931 EST [facility] [place] [facility] (SpINE) Orthopaedics and Rehabilitation [facility] [address] [place] [address] PROGRESS/FOLLOWUP NOTE - 04/10/2007 PROBLEM 1: 50% [...] 18:50 Wilfrid Taylor MD Kj Child MD -jK Child MD -joann Job ID: [id number] Doc ID: [id number] cc: DO Brian Petersen MD documented in this encounter Plan of Treatment Upcoming Encounters Date Type Department Care Team (Late st Contact Info) Description 09/18/2024 11:00 EST Office Visit [facility] Bariatric Surgery - [place] [address] [place] [address] Allen Thompson PA-C 111 [facility], [facility], Level 5 [place] [address] 10/26/2024 10:45 EST Telemedicine [facility] Neurology - S [address] [address] Sulema Nicole NP [address] [place] [address] Level 2 [place] [address] documented as of this encounter Visit Diagnoses Not on filedocumented in this encounter
--- OUTSIDE RECORDS SUMMARY | 2024-09-17 09:16 | XMS_ITS | Encounter Summary ---
Author Organization [facility] Address [address] [place] [address] Care Team Providers Care Manager Surgical Name Role Phone Brian Lindsay MD Primary Care Provider Unavail able Reason for Visit * Reason Comments Follow-up foot pain, right/ Os trigonum Encounter Details Date Type Department Care Team (Late st Contact Info) Description 08/02/2011 9:30 EST Office Visit [facility] Foot & Ankle Program - [address] [place] [address] Catalino Keys MD [address] [place] [phone] Tarsal tunnel syndrome of right side; [...] Office Visit [facility] Bariatric Surgery [facility] [address] [place] [address] Allen Thompson PA-C 111 [facility] Level [address] [place] [phone] 10/26/2024 10:45 EST Telemedicine [facility] Neurology - [address] [phone] Sulema Nicole NP 1 [facility] Level 2 [place] [phone] documented as of this encounter Visit Diagnoses Diagnosis Tarsal tunnel syndrome of right side 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
--- OUTSIDE RECORDS SUMMARY | 2024-09-17 09:16 | XMS_ITS | Encounter Summary ---
Author Organization [facility] Address [address] [place] [address] Care Team Providers Care Electron Beam Machine Welder Setter Name Role Phone Unavailable Primary Care Provider Unavailabl e Encounter Details Date Type Department Care Team (Late st Contact Info) Description 01/02/2007 Before PRISM Converted Visit (Maple) [facility] - Maple conversion [address] [place], [place] [address] Kj Child MD [address] [place] [address] [place] [address] Social History Tobacco Use Types Packs/Day Years Used Date Smoking Tobacco: Never Assessed Comments Unknown Sex and Gender Information Value Date Recorded Sex Assigned at Not on file Legal Sex Female 14:17 EST Gender Identity Female 10/05/2021 12:31 EST Sexual Orientation Not on file documented as of this encounter Progress Notes * Kj Child MD - 07/08/20092023 EST [facility]ine [place] [facility] (SpINE) Orthopaedics and Rehabilitation 158 [facility] [address] [place] [address] PROGRESS/FOLLOWUP NOTE - 01/02/2007 PROBLEM 1. 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 and we discussed that she could get [...] Child MD A - cmd Job ID: [id number] Document ID: [id number] cc: Harry Abreu MD documented in this encounter Plan of Treatment Upcoming Encounters Date Type Department Care Team (Late st Contact Info) Description 09/18/2024 11:00 EST Office Visit [facility] Bariatric Surgery - [place] [address] [place], [place] [address] Allen Thompson PA-C [address] [place] [address], Level 5 [place] [phone] 10/26/2024 10:45 EST Telemedicine [facility] Neurology - S [place] 1 [place], [place] [address] Sulema Nicole NP 1 [facility], Level 2 [place] [address] documented as of this encounter Visit Diagnoses Not on filedocumented in this encounter
--- OUTSIDE RECORDS SUMMARY | 2024-09-17 09:16 | XMS_ITS | Encounter Summary ---
Author Organization [facility] Address [address] [place] [address] Care Team Providers Care Commercial Stripper Name Role Phone Brian Lindsay MD Primary Care Provider Unavail able Reason for Visit * Reason Comments Foot Pain Encounter Details Date Type Department Care Team (Late st Contact Info) Description 06/15/2011 10:00 EDT Office Visit [facility] Spine Program - [address] [place] [address] Raysa Levine MD [address] [place] [address] [place] [address] Lumbar radiculopathy; Tarsal tunnel syndrome [...] Notes * Raysa Levine MD - 06/20/2011 1447 EDT Spine [place] [facility] (SpINE) Orthopaedics and Rehabilitation [address] [place] [address] ELECTRODIAGNOSTIC MEDICINE CONSULTATION SERVICE DATE: 06/15/2011 PERFORMING [...] made difficult. 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 Her pain [...] gabapentin 300 t.i.d. 2. Consultation by a women specialist regarding possibility of a mild right tarsal tunnel syndrome. All findings were reviewed with the patient. All questions were answered. Electronically Signed by Raysa Levine MD 07/03/2011 22:00 Raysa Levine MD - Raysa Levine MD P - CD Job ID: Doc ID: [id number] Doc ID: [id number] cc: MARGARITA Koehler MD documented in this encounter Plan of Treatment Upcoming Encounters Date Type Department Care Team (Late st Contact Info) Description 09/18/2024 11:00 EST Office Visit [facility] Bariatric Surgery - [place] [address] [place] [address] Allen Thompson PA-C [address] [place] [address], [facility] 5 [place] [address] 10/26/2024 10:45 EST Telemedicine [facility] Neurology - S [place] 1 [place], [place] [address] Sulema Nicole NP 1 [facility], Level 2 [place] [phone] documented as of this encounter Visit Diagnoses Diagnosis Lumbar radiculopathy Thoracic or lumbosacral neuritis or radiculitis, unspecified Tarsal tunnel syndrome of right side Tarsal tunnel syndrome documented in this encounter Care Teams Commercial Stripper Relationship Specialty Start Date End Date Brian Lindsay MD PCP - General 04/11/11 10/23/11 documented as of this encounter
--- OUTSIDE RECORDS SUMMARY | 2024-09-17 09:16 | XMS_ITS | Encounter Summary ---
Author Organization [facility] Address [address] [place] [address] Care Team Providers Care Stump Shooter Name Role Phone Unavailable Primary Care Provider Unavailabl e Encounter Details Date Type Department Care Team (Late st Contact Info) Description 04/04/2011 Results Only [facility] [phone] Haritha Hinkle MD [address] [place] [address] Social History Tobacco Use Types Packs/Day Years [...] Info) Description 09/18/2024 11:00 EST [facility] B[facility]ric Surgery - [address] [address] Allen Thompson, PA-C 111 [facility] 5 [place] [phone] 10/26/2024 10:45 EST Telemedicine [facility] Neurology - [address] [phone] Sulema Nicole NP [address] [place] [address] 2 [place] [phone] documented as of this encounter Procedures Procedure [...] ? TIA HITCHCOCK ? Accession #: ? [id number] ? : ? 1975 (Age: 35) ??F ?Collect Date: ? 04/04/2011 ? Location: ? [facility] ? Receive Date: ? 04/06/2011 ? Provider: ?HARITHA HINKLE MD ? Copy to: ? Specimen/Source: ?Pap [...] 14:43 ? End of Report ? RONNA DANG 04/04/2011 04/06/2011 us Haritha Hinkle MD PATHOLOGY ORDERABLES Final Resu lt [facility] [address] [place] [address] documented in this encounter Visit Diagnoses Not on filedocumented in this encounter
--- OUTSIDE RECORDS SUMMARY | 2024-09-17 09:16 | XMS_ITS | Encounter Summary ---
Author Organization [facility] Address [address] [place] [address] Care Team Providers Care Plier Worker Name Role Phone Donna Mohr NP Primary Care Provider Reason for Visit * Reason Onset Date Comments Advice Only 11/28/2011 Encounter Details Date Type Department Care Team (Late st Contact Info) Description 11/28/2011 Telephone [facility] Foot & Ankle Program - [address] [address] Catalino Keys MD [address] [place] [phone] Advice Only Social History Tobacco Use [...] Info) Description 09/18/2024 11:00 EST Office Visit [facility] Bariatric Surgery - [place] [address] [place], [place] [address] Allen Thompson, PA-C 111 [facility] 5 [place] [phone] 10/26/2024 10:45 EST Telemedicine [facility] Neurology - [address] [place] 1 [place], [place] [address] Sulema Nicole NP 1 [facility] 2 [place] [phone] documented as of this encounter Visit Diagnoses Not on filedocumented in this encounter Care Teams Plier Worker Relationship Specialty Start Date End Date Donna Mohr NP [place], [place] [address] PCP - General 10/24/11 09/24/12 documented as of this encounter
--- OUTSIDE RECORDS SUMMARY | 2024-09-17 09:16 | XMS_ITS | Encounter Summary ---
Author Organization [facility] Address [address] [place] [address] Care Team Providers Care Call Person Name Role Phone Donna Mohr NP Primary Care Provider [phone] Reason for Visit * Reason Onset Date Comments Other 10/29/2011 Encounter Details Date Type Department Care Team (Late st Contact Info) Description 10/29/2011 Telephone [facility] Foot & Ankle Program - [place] [address] Kristina Aaron LPN [address] [place] [address] Other Social History Tobacco Use Types Packs/Day [...] Surgical arrival time 10:30 am 2. Location- [facility] 3. Pre-Anesthetic fasting instructions 4. Medications DOS per instructions from Preoperative nurse 5. Shower or bath using antibacterial soap 6. Call office with any questions ([phone]) documented in this encounter Plan of Treatment Upcoming Encounters Date Type Department Care Team (Late st Contact Info) Description 09/18/2024 11:00 EST Office Visit [facility] Bariatric Surgery - [place] [address] [place], [place] [address] Allen Thompson PALizettC 111 [facility], Level 5 [place] [phone] 10/26/2024 10:45 EST Telemedicine [facility] Neurology - S [address] [phone] Sulema Nicole NP [address] [place] [address] Level 2 [place] [phone] documented as of this encounter Visit Diagnoses Not on filedocumented in this encounter Care Teams Call Person Relationship Specialty Start Date End Date Donna Mohr NP [address] [place] [address] PCP - General 10/24/11 09/24/12 documented as of this encounter
--- OUTSIDE RECORDS SUMMARY | 2024-09-17 09:16 | XMS_ITS | Encounter Summary ---
Author Organization [facility] Address [address] [place] [address] Care Team Providers Care Geographic Area Intelligence Officer Name Role Phone Brian [place] MD Primary Care Provider Unavail able Reason for Visit * Reason Onset Date Comments Appointment Related 08/07/2011 MRI and Foll ow-up appointments Encounter Details Date Type Department Care Team (Late st Contact Info) Description 08/07/2011 Telephone [facility] Foot & Ankle Program - [address] [address] Catalino Keys MD [address] [place] [phone] Appointment Related (MRI and Follow-up appointments) [...] Telephone Encounter - Andrea Victor - 08/07/2011 3536 EST Hannah confirmed she could make the following appointments: MRI Date: 08/15/11 Time: 2:45pm Location: [facility] Follow Up Physician: Ludmila Date: 08/16/11 Time: 11:30am Andrea Victor 08/07/2011 documented in this encounter Plan of Treatment Upcoming Encounters Date Type Department Care Team (Late st Contact Info) Description 09/18/2024 11:00 EST Office Visit [facility] Bariatric Surgery - [place] [address] [place] [address] Allen Thompson PA-C 111 [facility], Level 5 [place] [phone] 10/26/2024 10:45 EST Telemedicine [facility] Neurology - S [address] [phone] Sulema Nicole NP 1 [facility] Level 2 [place] [phone] documented as of this encounter Visit Diagnoses Not on filedocumented in this encounter Care Teams Geographic Area Intelligence Officer Relationship Specialty Start Date End Date Brian [place] MD PCP - General 04/11/11 10/23/11 documented as of this encounter
--- OUTSIDE RECORDS SUMMARY | 2024-09-17 09:16 | XMS_ITS | Encounter Summary ---
Author Organization [facility] Address [address] [place] [address] Care Team Providers Care Portrait Photographer Name Role Phone Unavailable Primary Care Provider Unavailabl e Encounter Details Date Type Department Care Team (Late st Contact Info) Description 12/29/2009 Abstract Used for ABSTRACTING Data [phone] Unknown, Doctor Lumbar radiculopathy Social History Tobacco [...] Office Visit [facility] Bariatric Surgery [address] [address] Allen Thompson, PA-C 111 [facility] 5 [place] [phone] 10/26/2024 10:45 EST Telemedicine [facility] Neurology - [facility] [place], [place] 1 [place] [address] Sulema Nicole NP [address] [place] [address] 2 [place] [phone] documented as of this encounter Visit Diagnoses Diagnosis Lumbar radiculopathy Thoracic or lumbosacral neuritis or radiculitis, unspecified documented in this encounter
--- OUTSIDE RECORDS SUMMARY | 2024-09-17 09:16 | XMS_ITS | Encounter Summary ---
Author Organization [facility] Address [address] [place] [address] Care Team Providers Care Quantitative Developer Name Role Phone Unavailable Primary Care Provider Unavailabl e Encounter Details Date Type Department Care Team (Late st Contact Info) Description 02/24/2007 Before PRISM Converted Visit ([place]) [facility] - [place] conversion [address] [place] [address] jK Child MD [address] [place] [address] [place] [address] Social History Tobacco Use Types Packs/Day Years Used Date Smoking Tobacco: Never Assessed Comments Unknown Sex and Gender Information Value Date Recorded Sex Assigned at Not on file Legal Sex Female 14:17 EST Gender Identity Female 10/05/2021 12:31 EST Sexual Orientation Not on file documented as of this encounter Progress Notes * Kj Child MD - 07/10/2009 1324 EST [facility] [place] [facility] (SpINE) Orthopaedics and Rehabilitation [facility] [address] [place] [address] PROGRESS/FOLLOWUP NOTE - 02/24/2007 PROBLEM 1: 50% [...] 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 OBJECTIVE Incisions are well healed. She is [...] Child MD - Kj Child MD - [facility] Job ID: [id number] Doc ID: [id number] cc: DO Brian Petersen MD Thomas J Zweber, MD Stacie Clark, [address] [place] [address]* documented in this encounter Plan of Treatment Upcoming Encounters Date Type Department Care Team (Late st Contact Info) Description 09/18/2024 11:00 EST Office Visit [facility] Bariatric Surgery - [address] [place] [address] Allen Thompson PA-C 111 [facility], Level 5 [place] [phone] 10/26/2024 10:45 EST Telemedicine [facility] Neurology - [address] [address] Sluema Nicole NP [address] [place] [address] Level 2 [place] [address] documented as of this encounter Visit Diagnoses Not on filedocumented in this encounter
--- OUTSIDE RECORDS SUMMARY | 2024-09-17 09:16 | XMS_ITS | Encounter Summary ---
Author Organization [facility] Address [address] [place] [address] Care Team Providers Care Parts Washer Name Role Phone Donna Mohr NP Primary Care Provider [phone] Encounter Details Date Type Department Care Team (Late st Contact Info) Description 11/26/2011 Orders Only [facility] Foot & Ankle Program - [address] [address] Catalino Keys MD 192 [place] [address] Tarsal tunnel syndrome of right [...] Progress Notes * Andrea Victor - 11/26/2011 1737 EDT Tia [...] [facility] Bariatric Surgery - [place] [address] [place] [address] Allen Thompson PA-C 111 [facility], [facility], Level 5 [place] [phone] 10/26/2024 10:45 EST Telemedicine [facility] Neurology - [address] [address] Sulema Nicole NP 1 [facility] Level 2 [place] [address] documented as of this encounter Visit Diagnoses Diagnosis Tarsal tunnel syndrome of right side- Primary Tarsal tunnel syndrome documented in this encounter Orders Equipment Count Last Ordered Date First Orde red Date GENERIC DME ORDER 1 11/27/2011 documented in this encounter Care Teams Parts Washer Relationship Specialty Start Date End Date Donna Mohr NP [address] [place] [address] PCP - General 10/24/11 09/24/12 documented as of this encounter
--- OUTSIDE RECORDS SUMMARY | 2024-09-17 09:16 | XMS_ITS | Encounter Summary ---
Author Organization [facility] Address [address] [place] [address] Care Team Providers Care Airborne Mission Systems Name Role Phone Unavailable Primary Care Provider Unavailabl e Encounter Details Date Type Department Care Team (Late st Contact Info) Description 09/29/2007 Results Only [facility] - [place] conversion [address] [place] [address] Dejuan Farias PA Social History Tobacco Use [...] [facility] - [address] [address] Allen Thompson, PA-C 111 [facility] 5 [place] [phone] 10/26/2024 10:45 EST Telemedicine [facility] Neurology - [address] [phone] Sulema Nicole NP [address] [place] [address] 2 [place] [phone] documented as of this encounter Procedures Procedure [...] ? TIA HITCHCOCK ? Accession #: ? [id number] : ? 1975 (Age: 32) ??F ?Collect Date: ? 09/29/2007 Location: ? [facility] ? Receive Date: ? 09/30/2007 Provider: ?DEJUAN AVILA Copy to: ? Specimen/Source: ?ThinPrep Pap Test, Endocervix, processed on [employer] ThinPrep Imaging System, with manual evaluation Last [...] Document reviewed and electronically signed by: ? Janette Blanchard, [facility](ASCP) ? Report Date: ??10/06/2007 08:44 End of Report [facility] 09/29/2007 09/30/2007 us Dejuan AVILA PATHOLOGY ORDERABLES Final Resul t [facility] [address] [place] [address] documented in this encounter Visit Diagnoses Not on filedocumented in this encounter
--- OUTSIDE RECORDS SUMMARY | 2024-09-17 09:16 | XMS_ITS | Encounter Summary ---
Author Organization [facility] Address [address] [place] [address] Care Team Providers Care Paleontology Teacher Name Role Phone Brian [place] MD Primary Care Provider Unavail able Reason for Visit * Reason Comments Foot Pain bilateral foot pain, right more than left Encounter Details Date Type Department Care Team (Late st Contact Info) Description 06/18/2011 10:00 EDT Office Visit [facility] Foot & Ankle Program - [address] [address] Catalino Keys MD [address] [place] [phone] Foot pain, right (Primary Dx); Os [...] - Weight 130.2 kg (287 lb) 06/18/2011 09 EDT Height 172.7 cm (5' 8) 06/18/2011943 [...] apparently has also been seen by a contact center specialist up in [facility] by the name of Bc. He did [...] documented in this encounter Procedure Notes * Printed Circuit Boards Pinner, Scan - 07/09/2011 1008 ESTAssociated Order(s): ORDERS - SCANNED documented in this encounter Plan of Treatment Upcoming Encounters Date Type Department Care Team (Late st Contact Info) Description 09/18/2024 11:00 EST Office Visit [facility] Bariatric Surgery - [place] 353 [place] [address] Allen Thompson PA-C 111 [facility], [facility] 5 [place] [address] 10/26/2024 10:45 EST Telemedicine [facility] Neurology - S [place] 1 [place], [place] [address] Sulema Nicole NP 1 [facility], Level 2 [place] [address] documented as of this encounter [...] EST) 07/09/2011 10:0 8 EST Narrative Transcriptions [employer] Pinner, Scan - 07/09/2011 10:08 EST us Scan [employer] Pinner ADMISSION ORDERABLES Final Re sult * FOOT 3 OR MORE VIEWS (06/18/2011 11:05 EDT) Anatomical Region Laterality Modality Other 06/18/2011 11:0 5 EDT 06/18/2011 14:41 EDT Narrative 06/18/2011 14:41 EDT ANKLE 3 OR MORE VIEWS ??Jun 18, 2011 11:05:00 AM Signs and Symptoms/Comments: ??729.5-PAIN IN HBPJ-CEB-1-CM assess for DJD Technique: AP, mortise, and [...] agree with the findings. Procedure Note French Satnos MD - 06/18/2011 ANKLE 3 OR MORE VIEWS Jun 18, 2011 11:05:00 AM Signs and Symptoms/Comments: 729.5-PAIN IN IPIM-QZK-6-CM assess for DJD Technique: AP, mortise, and [...] interpretation and agree with the findings. us Catalino Keys MD [facility] DIAGNOSTIC IMAGING VENKATESH DEL CID Final Result * ANKLE 3 OR MORE VIEWS (06/18/2011 11:05 EDT) Anatomical Region Laterality Modality Other 06/18/2011 11:0 5 EDT 06/18/2011 14:41 EDT Narrative 06/18/2011 14:41 EDT ANKLE 3 OR MORE VIEWS ??Jun 18, 2011 11:05:00 AM Signs and Symptoms/Comments: ??729.5-PAIN IN JFZZ-GRY-0-CM assess for DJD Technique: AP, mortise, and [...] 11:05:00 AM Signs and Symptoms/Comments: 729.5-PAIN IN IQEM-JDX-6-CM assess for DJD Technique: AP, mortise, and [...] interpretation and agree with the findings. us Catalino Keys MD [facility]NOSTIC IMAGING VENKATESH DEL CID Final Result documented in [...] 06/18/2011 documented in this encounter Care Teams Paleontology Teacher Relationship Specialty Start Date End Date Brian [place] MD PCP - General 04/11/11 10/23/11 documented as of this encounter
--- OUTSIDE RECORDS SUMMARY | 2024-09-17 09:16 | XMS_ITS | Encounter Summary ---
Author Organization [facility] Address [address] [place] [address] Care Team Providers Care Motor Home Electrical Foreman Name Role Phone Brian [place] MD Primary Care Provider Unavail able Encounter Details Date Type Department Care Team (Late Contact Info) Description 06/29/2011 Abstract [facility] Foot & Ankle Program - [address] [address] Catalino Keys MD [address] [place] [phone] Social History Tobacco Use Types Packs/Day [...] Visit [facility] Bariatric Surgery - [place] [address] [place] [address] Allen Thompson PA-C 111 [facility], [facility], Level 5 [place] [phone] 10/26/2024 10:45 EST Telemedicine [facility] Neurology - S [address] [address] Sulema Nicole, CAPACITOR REPAIRER 1 [facility], Level 2 [place] [phone] documented as of this encounter Visit Diagnoses Not on filedocumented in this encounter Care Teams Motor Home Electrical Foreman Relationship Specialty Start Date End Date Brian [place] MD PCP - General 04/11/11 10/23/11 documented as of this encounter
--- OUTSIDE RECORDS SUMMARY | 2024-09-17 09:16 | XMS_ITS | Encounter Summary ---
Author Organization [facility] Address [address] [place] [address] Care Team Providers Care Supervisor Fur Dressing Name Role Phone Biran [place] MD Primary Care Provider Unavail able Encounter Details Date Type Department Care Team (Late st Contact Info) Description 06/06/2011 Documentation Visit [facility] Spine Program - [address] [place], [place] [phone] Kj Song PA-C [address] [place] [address] [place] [address] Social History Tobacco Use Types [...] - 06/06/2011 1530 EDT Uploaded CD to SPARQ; sent back to pt. documented in this encounter Plan of Treatment Upcoming Encounters Date Type Department Care Team (Late st Contact Info) Description 09/18/2024 11:00 EST Office Visit [facility] Bariatric Surgery - [place] [address] [place] [address] Allen Thompson PA-C 111 [facility], [facility], Level 5 [place] [phone] 10/26/2024 10:45 EST Telemedicine [facility] Neurology - S [address] [address] Sulema Nicole NP [address] [place] [address] Level 2 [place] [address] documented as of this encounter Visit Diagnoses Not on filedocumented in this encounter Care Teams Supervisor Fur Dressing Relationship Specialty Start Date End Date Brian [place] MD PCP - General 04/11/11 10/23/11 documented as of this encounter
--- OUTSIDE RECORDS SUMMARY | 2024-09-17 09:16 | XMS_ITS | Encounter Summary ---
Author Organization [facility] Address [address] [place] [address] Care Team Providers Care Visual Coordinator Name Role Phone Unavailable Primary Care Provider Unavailabl e Encounter Details Date Type Department Care Team (Late st Contact Info) Description 10/25/2006 Before PRISM Converted Visit ([place]) [facility] - [place] conversion [address] [place], [place] [address] Kj Child MD [address] [place] [address] [place] [address] Social History Tobacco Use Types Packs/Day Years Used Date Smoking Tobacco: Never Assessed Comments Unknown Sex and Gender Information Value Date Recorded Sex Assigned at Not on file Legal Sex Female 14:17 EST Gender Identity Female 10/05/2021 12:31 EST Sexual Orientation Not on file documented as of this encounter Consult Notes * Kj Child MD - 07/05/2009 1059 EST [facility] (SpINE) Orthopaedics and Rehabilitation [facility] [address] [place] [address] CONSULTATION - P#1: 50% back, 50% right [...] program. She has been offered a Functional [place] program at 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 Her boss does allow her to [...] appears to have been in 2001 at [facility], none more recently. A; Woman with back [...] Kj Child MD 11/04/2006 19:27 Pramod Child, Wilfrid Child MD Kj Child MD - Kj Child MD P - cmg Job ID: [id number] Document ID: [id number] cc: MARGARITA Chaudhari MD documented in this encounter Plan of Treatment Upcoming Encounters Date Type Department Care Team (Late st Contact Info) Description 09/18/2024 11:00 EST Office Visit [facility] Bariatric Surgery - [place] [address] [place] [address] Allen Thompson, MARGARITA-C [address] [place] [address] 5 [place] [phone] 10/26/2024 10:45 EST Telemedicine [facility] Neurology - S [place] 1 [place], [place] [phone] Sulema Nicole NP [address] [place] [address] Level 2 [place] [phone] documented as of this encounter Visit Diagnoses Not on filedocumented in this encounter
--- OUTSIDE RECORDS SUMMARY | 2024-09-17 09:16 | XMS_ITS | Encounter Summary ---
Author Organization [facility] Address [address] [place] [address] Care Team Providers Care Type Proof Reproducer Name Role Phone Donna Mohr NP Primary Care Provider [phone] Reason for Visit * Reason Comments Leg Pain bilateral foot/ankle pain Encounter Details Date Type Department Care Team (Latest Contact Info) Description 03/06/2012 15:00 EDT Office Visit [facility] Hand & Upper Extremity Program - [address] [place], [place] [phone] Khris Barraza MD [address] [place] [phone] Lumbar radiculopathy (Primary Dx); Multifactorial peripheral neuropathy; [...] - WP Job ID: SM Doc ID: [id number] Ext Doc ID: [id number] cc: Donna Mohr NP documented in this encounter Plan of Treatment Upcoming Encounters Date Type Department Care Team (Late st Contact Info) Description 09/18/2024 11:00 EST Office Visit [facility] Bariatric Surgery - [address] [address] Allen Thompson PA-C [address] [place] [address] 5 [place] [phone] 10/26/2024 10:45 EST Telemedicine [facility] Neurology - [address] [phone] Sulema Nicole NP [address] [place] [address] 2 [place] [phone] documented as of this encounter Visit Diagnoses Diagnosis Lumbar radiculopathy- Primary Thoracic or lumbosacral neuritis or radiculitis, unspecified 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
--- OUTSIDE RECORDS SUMMARY | 2024-09-17 09:16 | XMS_ITS | Encounter Summary ---
Author Organization [facility] Address [address] [place] [address] Care Team Providers Care Scientific Helper Name Role Phone Donna Mohr NP Primary Care Provider [phone] Reason for Referral * Consult (Routine/Next Available) - Closed Specialty Diagnoses / Procedures Referred By Wili mirelse Referred To Contact Neurology Diagnoses Idiopathic peripheral neuropathy Tarsal tunnel syndrome of right side Catalino Keys MD Phone: tel: fax: Referral ID Status Reason Start Date Expiration Date V isits Requested Visits Authorized [id number] Closed Specialty Services Required 03/20/2012 1 1 Question Answer Reason for Request: B/L LE pain with EMG proven neuropathy of unknown etiology. Please evaluate and treat Reason for Visit * Reason Comments Follow-up s/p tarsal tunnel re lease, right Encounter Details Date Type Department Care Team (Late st Contact Info) Description 03/20/2012 9:[address] [facility] Foot & Ankle Program - [address] [place] [address] Catalino Keys MD [address] [place] [phone] Tarsal tunnel syndrome of right side; [...] Date indomethacin (INDOCIN SR) 75 mg SR capsuleIndications: Tarsal tunnel syndrome of right side,Idiopathic peripheral neuropathy Take 1 Cap by mouth daily for 30 days. 30 Cap 0 03/20/2012 04/19/2012 pregabalin (LYRICA) 25 mg capsuleIndications: Tarsal tunnel [...] Description 09/18/2024 11:[address] [facility] Bariatric Surgery - [place] [address] [place] [address] Allen Thompson PA-C [address] [place] [address], [facility] 5 [place] [address] 10/26/2024 10:[address] [facility] Neurology - S [place] 1 [place], [place] [address] Sulema Nicole NP 1 [facility], Level 2 [place] [phone] Scheduled Referrals Name Type Priority Associated Diagnoses [...] documented as of this encounter Care Teams Scientific Helper Relationship Specialty Start Date End Date Donna Mohr NP [address] [place] [address] PCP - General 10/24/11 09/24/12 documented as of this encounter
--- OUTSIDE RECORDS SUMMARY | 2024-09-17 09:16 | XMS_ITS | Encounter Summary ---
Author Organization [facility] Address [address] [place] [address] Care Team Providers Care Cocktail Waitress Name Role Phone Onur Donna PLATT Primary Care Provider [phone] Encounter Details Date Type Department Care Team (Late st Contact Info) Description 01/21/2012 Results Only Imaging [facility] Foot & Ankle Program - [address] [place] [address] Catalino Keys MD 192 [place] [address] Social History Tobacco Use Types [...] Visit [facility] Bariatric Surgery - [place] [address] [place], [place] [address] Allen Thompson PA-C 111 [facility], [facility], Level 5 [place] [phone] 10/26/2024 10:45 EST Telemedicine [facility] Neurology - S [place] 1 [place] [address] Sulema Nicole, GIULIA 1 [facility], Level 2 [place] [phone] documented as of this encounter Procedures Procedure [...] 02:13:00 PM Signs and Symptoms: ??729.5-PAIN IN TSEW-QFK-9-CM assess for midfoot DJD Comparison: 06/18/2011 Findings: [...] 02:13:00 PM Signs and Symptoms: 729.5-PAIN IN EGXD-RTI-6-CM assess for midfoot DJD Comparison: 06/18/2011 Findings: [...] No fracture. Normal alignment. Catalino Keys MD [facility]AGNOSTIC IMAGING VENKATESH DEL CID Final Result documented in this encounter Visit Diagnoses Not on filedocumented in this encounter Care Teams Cocktail Waitress Relationship Specialty Start Date End Date Donna Mohr NP [address] [place] [address] PCP - General 10/24/11 09/24/12 documented as of this encounter
--- OUTSIDE RECORDS SUMMARY | 2024-09-17 09:16 | XMS_ITS | Encounter Summary ---
Author Organization [facility] Address [address] [place] [address] Care Team Providers Care Sales Project Coordinator Name Role Phone Donna Mohr NP Primary Care Provider [phone] Reason for Visit * Reason Comments Post-OP Follow Up Right tarsal tunnel release 11/01/11 Encounter Details Date Type Department Care Team (Late st Contact Info) Description 11/13/2011 11:00 EDT Office Visit [facility] Foot & Ankle Program - [address] [address] Catalino Keys MD [address] [place] [address] Tarsal tunnel syndrome of right [...] Refills Last Filled Start Date End Date hydrocodone-acetam inophen (LORTAB) 7.5-500 mg per tabletIndications: Tarsal tunnel syndrome of right side Take 1 [...] can go back to work as of 3/25/12 Medications: Vicodin Imaging at next visit::none Follow up: Return in about 1 month (around 12/14/2011). Cc: Referring Provider - Dr. Lindsay PCP - Donna Mohr documented in this encounter Procedure Notes * PROJECT CONTROL OFFICER, SCAN 2 - 12/06/2011 1332 EDTAssociated Order(s): ORDERS - SCANNED documented in this encounter Plan of Treatment Upcoming Encounters Date Type Department Care Team (Late st Contact Info) Description 09/18/2024 11:00 EST Office Visit [facility] Bariatric Surgery [place] [address] [place], [place] [address] Allen Thompson PA-C [address] [place] [address], Level [address] [place] [phone] 10/26/2024 10:45 EST Telemedicine [facility] Neurology - [address] [phone] Sulema Nicole NP [address] [place] [address] 2 [place] [phone] documented as of this encounter Procedures Procedure Name Priority Date/Time Associated Diagnosis Comments ORDERS - SCANNED 12/06/2011 13:3 2 EDT documented in this encounter Results * ORDERS - SCANNED (12/06/2011 13:32 EDT) 12/06/2011 13:3 2 EDT Narrative Transcriptions PROJECT CONTROL OFFICER, SCAN 2 - 12/06/2011 13:32 EDT us Scan 2 Telecasting Technician ADMISSION ORDERABLES Final Result documented in this encounter Visit Diagnoses Diagnosis Tarsal tunnel syndrome of right side- Primary Tarsal tunnel syndrome documented in this encounter Care Teams Sales Project Coordinator Relationship Specialty Start Date End Date Donna Mohr NP [address] [place] [address] PCP - General 10/24/11 09/24/12 documented as of this encounter
--- OUTSIDE RECORDS SUMMARY | 2024-09-17 09:16 | XMS_ITS | Encounter Summary ---
Author Organization [facility] Address [address] [place] [address] Care Team Providers Care Oracle Brm Developer Name Role Phone RosibelDonna barnes GIULIA Primary Care Provider [phone] Reason for Visit * Reason Onset Date Comments Ankle Pain 01/15/2012 Encounter Details Date Type Department Care Team (Late st Contact Info) Description 01/15/2012 Telephone [facility] Foot & Ankle Program - [address] [address] Gabriel Keys MD [address] [place] [address] Ankle Pain Social History Tobacco Use [...] Encounter - Gabriel Keys MD - 01/17/2012 9742 EDT I agree that having her come [...] 1-10 pain scale. 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 [...] Visit [facility] Bariatric Surgery - [place] [address] [place], [place] [address] Allen Thompson, PALizettC 111 [facility], Level 5 [place] [phone] 10/26/2024 10:45 EST Telemedicine [facility] Neurology - [address] [phone] Sulema Nicole NP [address] [place] [address] [address] 2 [place] [phone] documented as of this encounter Visit Diagnoses Not on filedocumented in this encounter Care Teams Oracle Brm Developer Relationship Specialty Start Date End Date Donna Mohr NP [address] [place], [place] [address] PCP - General 10/24/11 09/24/12 documented as of this encounter
--- OUTSIDE RECORDS SUMMARY | 2024-09-17 09:16 | XMS_ITS | Encounter Summary ---
Author Organization [facility] Address [address] [place] [address] Care Team Providers Care Windlace Machine Operator Name Role Phone Brian Lindsay MD Primary Care Provider Unavail able Encounter Details Date Type Department Care Team (Late st Contact Info) Description 09/26/2011 Results Only Imaging [facility] [phone] Germaine Worthy MD Social History Tobacco Use Types Packs/Day [...] Office Visit [facility] Bariatric Surgery - [address] [phone] Allen Thompson PA-C 111 [facility] 5 [place] [address] 10/26/2024 10:45 EST Telemedicine [facility] Neurology - [address] [phone] Sulema Nicole, FLANGING OPERATOR [address] [place] [address] 2 [place] [address] Pending Results Name Type Priority Associated Diagnoses Date /Time OUTSIDE CD - PLAIN FILM MSK Imaging 09/26/2011 15:00 EST OUTSIDE CD - MRI MSK Imaging 09/03 14:59 EST documented as of this encounter Visit Diagnoses Not on filedocumented in this encounter Care Teams Windlace Machine Operator Relationship Specialty Start Date End Date Brian Lindsay MD PCP - General 04/11/11 10/23/11 documented as of this encounter
--- OUTSIDE RECORDS SUMMARY | 2024-09-17 09:16 | XMS_ITS | Encounter Summary ---
Author Organization [facility] Address [address] [place] [address] Care Team Providers Care Public Relations Analyst Name Role Phone Unavailable Primary Care Provider Unavailabl e Encounter Details Date Type Department Care Team (Late st Contact Info) Description 12/30/2009 Abstract Used for ABSTRACTING Data [phone] Unknown, Doctor Social History Tobacco Use Types [...] Description 09/18/2024 11:[address] [facility] Bariatric Surgery [facility] [address] [place] [address] Allen Thompson PA-C 111 [facility] 5 [place] [phone] 10/26/2024 10:[address] [facility] Neurology - S [address] [address] Sulema Nicole NP [address] [place] [address] 2 [place] [address] documented as of this encounter Visit Diagnoses Not on filedocumented in this encounter
--- OUTSIDE RECORDS SUMMARY | 2024-09-17 09:16 | XMS_ITS | Encounter Summary ---
Author Organization [facility] Address [address] [place] [address] Care Team Providers Care Parts Analyst Name Role Phone Brian Lindsay MD Primary Care Provider Unavail able Reason for Referral * Radiology Services (Routine) - Closed Specialty Diagnoses / Procedures Referred By Wili mireles Referred To Contact Diagnoses Tarsal tunnel syndrome of right side Procedures MRI ANKLE Catalino Keys MD Phone: tel: fax: Referral ID Status Reason Start Date Expiration Date Visits Re quested Visits Authorized [id number] Closed 08/07/2011 1 1 Encounter Details Date Type Department Care Team (Late st Contact Info) Description 08/03/2011 Orders Only [facility] Foot & Ankle Program - [address] [address] Catalino Keys MD [address] [place] [phone] Tarsal tunnel syndrome of right side [...] she would like to have done at [facility]. We were unable to coordinate a [facility] MRI and same day follow-up due to her schedule. Andrea Victor 08/03/2011 documented in this encounter Plan of Treatment Upcoming Encounters Date Type Department Care Team (Late st Contact Info) Description 09/18/2024 11:00 EST Office Visit [facility] Bariatric Surgery - [place] [address] [place] [address] Allen Thompson PA-C [address] [place] [address] 5 [place] [phone] 10/26/2024 10:45 EST Telemedicine [facility] Neurology - [address] 2[address] Sulema Nicole NP [address] [place] [address] 2 [place] [phone] Scheduled Orders Name Type Priority Associated Diagnoses Orde r Schedule MRI ANKLE Imaging Routine Tarsal Tunnel Syndrome Of Right Side 08/03/2011 documented as of this encounter Visit Diagnoses Diagnosis Tarsal tunnel syndrome of right side- Primary Tarsal tunnel syndrome documented in this encounter Care Teams Parts Analyst Relationship Specialty Start Date End Date Brian Lindsay MD PCP - General 04/11/11 10/23/11 documented as of this encounter
--- OUTSIDE RECORDS SUMMARY | 2024-09-17 09:16 | XMS_ITS | Encounter Summary ---
Author Organization [facility] Address [address] [place] [address] Care Team Providers Care Feed Research Technician Name Role Phone Onur Donna GIULIA Primary Care Provider [phone] Reason for Visit * Reason Comments Follow-up s/p right tarsal pasquale na release 10/31/11. Pain is at its worst when standing, improves slightly when walking (burning)/ twisted ankle in first week after surgery Encounter Details Date Type Department Care Team (Late st Contact Info) Description 12/17/2011 8:00 EDT Office Visit [facility] Foot & Ankle Program - [address] [address] Catalino Keys MD [address] [place] [phone] Lumbar radiculopathy; Tarsal tunnel syndrome of [...] Refills Last Filled Start Date End Date ibuprofen (MOTRIN) 600 mg tabletIndications:L umbar radiculopathy,Tarsa l tunnel syndrome of right side Take 1 Tab by mouth 3 times daily for 30 days. 90 Tab 3 12/17/2011 01/16/2012 documented in this encounter Progress Notes * Catalino Keys MD - 12/17/2011 0827 EDT [...] Visit [facility] Bariatric Surgery - [place] [address] [place] [address] Allen Thompson PA-C [address] [place] [address] 5 [place] [phone] 10/26/2024 10:45 EST Telemedicine [facility] Neurology - S [address] [address] Sulema Nicole, GIULIA [address] [place] [address] 2 [place] [phone] documented as of this encounter Visit Diagnoses [...] documented as of this encounter Care Teams Feed Research Technician Relationship Specialty Start Date End Date Donna Mohr NP [address] [place] [address] PCP - General 10/24/11 09/24/12 documented as of this encounter
--- OUTSIDE RECORDS SUMMARY | 2024-09-17 09:16 | XMS_ITS | Encounter Summary ---
Author Organization [facility] Address [address] [place] [address] Care Team Providers Care Iron Handler Name Role Phone Unavailable Primary Care Provider Unavailabl e Encounter Details Date Type Department Care Team (Late st Contact Info) Description 11/18/2006 Before PRISM Converted Visit ([facility]) [facility] - [place] conversion [address] [place], [place] [address] Kj Child MD [address] [place] [address] [place] [address] Social History Tobacco Use Types Packs/Day Years Used Date Smoking Tobacco: Never Assessed Comments Unknown Sex and Gender Information Value Date Recorded Sex Assigned at Not on file Legal Sex Female 14:17 EST Gender Identity Female 10/05/2021 12:31 EST Sexual Orientation Not on file documented as of this encounter Progress Notes * Kj Child MD - 07/05/2009 1007 EST [facility] [place] [facility] (SpINE) [facility]opa[facility]ics and [facility] [address] [facility] [address] [place] [address] TELEPHONE CONVERSATION - 11/18/2006 SUBJECTIVE I spoke [...] Child MD A - d Job ID: [id number] Document ID: [id number] cc: MARGARITA Chaudhari MD - Charmaine Child MD [facility] Job ID: [id number] Document ID: [id number] cc: MARGARITA Chaudhari MD documented in this encounter Plan of Treatment Upcoming Encounters Date Type Department Care Team (Late st Contact Info) Description 09/18/2024 11:00 EST Office Visit [facility] Bariatric Surgery - [address] [place] [address] [address] Allen Thompson PA-C [address] [place] [address] Level [address] [place] [phone] 10/26/2024 10:45 EST Telemedicine [facility] Neurology - S [address] [address] Sulema Nicole, GIULIA 1 [facility] Level 2 [place] [address] documented as of this encounter Visit Diagnoses Not on filedocumented in this encounter
--- OUTSIDE RECORDS SUMMARY | 2024-09-17 09:16 | XMS_ITS | Encounter Summary ---
Author Organization [facility] Address [address] [place] [address] Care Team Providers Care Workers Compensation Specialist Name Role Phone Unavailable Primary Care Provider Unavailabl e Encounter Details Date Type Department Care Team (Late Contact Info) Description 07/17/2007 14:[address] [facility] [place] conversion [address] [place], [place] [address] Kj Child MD [address] [place] [phone] Social History Tobacco Use Types Packs/Day [...] Visit [facility] Bariatric Surgery - [place] [address] Allen Thompson PA-C 111 [facility], [facility], Level [address] [place] [phone] 10/26/2024 10:[address] [facility] Neurology - [place] 1 [place], [place] [phone] Sulema Nicole NP [address] [place] [address], Level [address] [place] [phone] documented as of this encounter Procedures Procedure [...] present and a neurostimulator device overlies L5-S1. us Kj Child MD IMG DIAGNOSTIC IMAGING O RDERABLES Final Result documented in this encounter Visit Diagnoses Not on filedocumented in this encounter Additional Health Concerns Infection Onset Date Last Indicated Resolved Time COVID-19 08/15/2021 08/15/2021 09/04/2021 22:1 5 EST documented as of this encounter
--- OUTSIDE RECORDS SUMMARY | 2024-09-17 09:16 | XMS_ITS | Encounter Summary ---
Author Organization [facility] Address [address] [place] [address] Care Team Providers Care Associate Quality Engineer Name Role Phone Brian Lindsay MD Primary Care Provider Unavail able Encounter Details Date Type Department Care Team (Late Contact Info) Description 05/28/2011 Abstract [facility] Spine Program - [address] [place], [place] [phone] Kj Song PA-C 192 [facility] [place] [address] Social History Tobacco Use Types [...] Office Visit [facility] Bariatric Surgery - [address] [address] Allen Thompson PA-C 111 [facility], [facility], Level [address] [place] [phone] 10/26/2024 10:45 EST Telemedicine [facility] Neurology - [address] [address] Sulema Nicole, BOX SPRING MAKER 1 [facility], Level [address] [place] [phone] documented as of this encounter Visit Diagnoses Not on filedocumented in this encounter Historical Medications * This list may reflect changes made after this encounter. ACETAMINOPHEN (TYLENOL ORAL) Take 650 mg by mouth as needed. 09/07/2015 added in this encounter Care Teams Associate Quality Engineer Relationship Specialty Start Date End Date Brian Lindsay MD PCP - General 04/11/11 10/23/11 documented as of this encounter
--- OUTSIDE RECORDS SUMMARY | 2024-09-17 09:16 | XMS_ITS | Encounter Summary ---
Author Organization [facility] Address [address] [place] [address] Care Team Providers Care Waiter/Waitress Dining Car Name Role Phone Donna Mohr NP Primary Care Provider [phone] Reason for Referral * Consult (Routine/Next Available) - Closed Specialty Diagnoses / Procedures Referred By Contmarco a t Referred To Contact Diagnoses Lumbar radiculopathy Tarsal tunnel syndrome of right side Catalino Keys MD Phone: tel: fax: Khris Barraza MD Phone: tel: fax: Referral ID Status Reason Start Date Expiration Date V isits Requested Visits Authorized [id number] Closed Specialty Services Required 02/11/2012 1 1 Question Answer Reason for Request: Dr Barraza - EMG/NCV bilateral LE's. Evaluate for neuritis causing bilateral burning foot pain. Patient has history of prior back surgeries. Reason for Visit * Reason Comments Follow-up right foot Encounter Details Date Type Department Care Team (Late st Contact Info) Description 02/11/2012 11:00 EDT [facility] Foot & Ankle Program - [address] [place] [address] Catalino Keys MD [address] [place] [phone] Lumbar radiculopathy; Tarsal tunnel syndrome of [...] Office Visit [facility] Bariatric Surgery - [address] [address] Allen Thompson PA-C [address] [place] [address], Level [address] [place] [address] 10/26/2024 10:45 EST Telemedicine [facility] Neurology - S [address] [address] Sulema Nicole NP 1 [facility], Level [address] [place] [phone] Scheduled Referrals Name Type Priority Associated Diagnoses Orde r Schedule AMB CONSULT PHYSIATRY Outpatient Referral Routine Lumbar radiculopathy Tarsal tunnel syndrome of right side Ordered: 02/11/2012 documented as of this encounter Visit Diagnoses Diagnosis Lumbar radiculopathy Thoracic or lumbosacral neuritis or radiculitis, unspecified Tarsal tunnel syndrome of right side Tarsal tunnel syndrome documented in this encounter Care Teams Waiter/Waitress Dining Car Relationship Specialty Start Date End Date Donna Mohr NP [address] [place] [address] PCP - General 10/24/11 09/24/12 documented as of this encounter
--- OUTSIDE RECORDS SUMMARY | 2024-09-17 09:16 | XMS_ITS | Encounter Summary ---
Author Organization [facility] Address [address] [place] [address] Care Team Providers Care Sales Advisory Manager Name Role Phone Unavailable Primary Care Provider Unavailabl e Encounter Details Date Type Department Care Team (Late st Contact Info) Description 04/10/2007 13:27 EDT Hospital Encounter [facility] [place] conversion [address] [place], [place] [phone] Brian Lindsay MD Social History Tobacco Use [...] Health System [facility] Bariatric Surgery - [place] [address] [place] [address] Allen Thompson PA-C 111 [facility], [facility], Level [address] [place] [address] 10/26/2024 10:45 EST Telemedicine [facility] Neurology - S [place] 1 [place], [place] [address] Sulema Nicole NP 1 [facility], Level [address] [place] [phone] documented as of this encounter Procedures Procedure [...] is unchanged. Kj Child MD IMG DIAGNOSTIC IMAGING O RDERABLES Final Result documented in this encounter Visit Diagnoses Not on filedocumented in this encounter Additional Health Concerns Infection Onset Date Last Indicated Resolved Time COVID-19 08/15/2021 08/15/2021 09/04/2021 22:1 5 EST documented as of this encounter
--- OUTSIDE RECORDS SUMMARY | 2024-09-17 09:16 | XMS_ITS | Encounter Summary ---
Author Organization [facility] Address [address] [place] [address] Care Team Providers Care Edger Machine Setter Name Role Phone Unavailable Primary Care Provider Unavailabl e Encounter Details Date Type Department Care Team (Late st Contact Info) Description 05/29/2010 Results Only [facility] ([facility]) [address] [place], [place] [phone] Dejuan Farias PA Social History Tobacco Use [...] Description 09/18/2024 11:00 EST Office Visit [facility] Bariatric Surgery - [address] [address] Allen Thompson PA-C 111 [facility], [facility] 5 [place] [phone] 10/26/2024 10:45 EST Telemedicine [facility] Neurology - [address] [address] Sulema Nicole NP [address] [place] [address] Level [address] [place] [phone] documented as of this encounter Procedures Procedure Name Priority Date/Time Associated Diagnosis Comments CYTOPATHOLOGY Routine 05/29/2010 0:00 EDT documented in this encounter Results * CYTOPATHOLOGY (05/29/2010 0:00 EDT) Pathologist [facility] Pathology Report: CYTOPATHOLOGY REPORT ? Reports generated via electronic interface contain original data; ? however they are lacking the format of the original report. ? Caution should be taken when reading/interpreti ng unformatted reports. ? Name: ? TIA HITCHCOCK ? Accession #: ? [id number] ? : ? 1975 (Age: 34) ??F [...] Document reviewed and electronically signed by: ? Petty Hough, CT(ASCP) ? Report ??Date: 06/05/2010 10:02 ? [...] diagnosis. ? End of Report ? RONNA DANG 05/29/2010 05/30/2010 us Dejuan AVILA PATHOLOGY ORDERABLES Final Resul t [facility] [address] [place] [address] documented in this encounter Visit Diagnoses Not on filedocumented in this encounter
--- OUTSIDE RECORDS SUMMARY | 2024-09-17 09:16 | XMS_ITS | Encounter Summary ---
Author Organization [facility] Address [address] [place] [address] Care Team Providers Care Broke Worker Name Role Phone Donna Mohr NP Primary Care Provider [phone] Reason for Referral * Radiology Services (Routine/Next Available) - Closed Specialty Diagnoses / Procedures Referred By Contmarco a t Referred To Contact Diagnoses Foot pain Procedures FOOT 3 OR MORE VIEWS Catalino Keys MD Phone: tel: fax: Referral ID Status Reason Start Date Expiration Date Visits Re quested Visits Authorized [id number] Closed 01/21/2012 1 1 Reason for Visit * Reason Comments Follow-up Persistent pain s/p right tarsal tunnel release Encounter Details Date Type Department Care Team (Late st Contact Info) Description 01/21/2012 13:15 EDT Office Visit [facility] Foot & Ankle Program - [address] [address] Catalino Keys MD [address] [place] [phone] Tarsal tunnel syndrome of right side; [...] Notes * Catalino Keys MD - 01/21/2012 1706 EDT Diagnosis: 1. Tarsal tunnel syndrome of right side (355.5) AIRCAST SHORT WALKING BOOT (AIRCAST BOOT) 2. Lumbar radiculopathy (724.4) 3. Foot pain (729.5) FOOT 3 OR MORE VIEWS, AIRCAST SHORT WALKING BOOT (AIRCAST BOOT) Subjective: Tia Spain is being seen today for Follow-up . She was originally sent as a consultation from Dr. Lindsay Ms Grabiel comes in today for followup of her [...] documented in this encounter Procedure Notes * CLAM DREDGE BOAT CAPTAIN, SCAN 2 - 03/31/2012 1004 EDTAssociated Order(s): ORDERS - SCANNED documented in this encounter Plan of Treatment Upcoming Encounters Date Type Department Care Team (Late st Contact Info) Description 09/18/2024 11:00 EST Office Visit [facility] Bariatric Surgery - [place] [address] [address] Allen Thompson PA-C 111 [facility], [address] [place] [address] 10/26/2024 10:45 EST Telemedicine [facility] Neurology - [facility] [address] [place] [address] Sulema Nicole NP 1 [facility], Level [address] [place] [phone] documented as of this encounter Procedures Procedure Name Priority Date/Time Associated Diagnosis Comments ORDERS - SCANNED 03/31/2012 10:0 4 EDT FOOT 3 OR MORE VIEWS Routine 01/21/2012 14:13 EDT Foot pain documented in this encounter Results * ORDERS - SCANNED (03/31/2012 10:04 EDT) 03/31/2012 10:0 4 EDT Narrative Transcriptions CLAM DREDGE BOAT CAPTAIN, SCAN 2 - 03/31/2012 10:04 EDT us Scan 2 Guzzler Builder ADMISSION ORDERABLES Final Result * FOOT 3 OR MORE VIEWS (01/21/2012 14:13 EDT) Anatomical Region Laterality Modality Other 01/21/2012 14:1 3 EDT 01/22/2012 15:26 EDT Narrative 01/22/2012 15:26 EDT FOOT 3 OR MORE VIEWS ??January 21, 2012 02:13:00 PM Signs and Symptoms: ??729.5-PAIN IN HGHD-HLD-2-CM assess for midfoot DJD Comparison: 06/18/2011 Findings: [...] 02:13:00 PM Signs and Symptoms: 729.5-PAIN IN QGWO-ZLZ-6-CM assess for midfoot DJD Comparison: 06/18/2011 Findings: [...] No fracture. Normal alignment. Catalino Keys MD IM DIAGNOSTIC IMAGING V[facility] CID Final Result [...] may reflect changes made after this encounter. ibuprofen (MOTRIN) 200 mg tablet Take 600 mg by mouth every 6 hours. 09/29/2012 added in this encounter Orders General Supply Count Last Ordered Date First Or dered Date AIRCAST SHORT WALKING BOOT (AIRCAST BOOT) 1 01/21/2012 documented in this encounter Care Teams Broke Worker Relationship Specialty Start Date End Date Donna Mohr NP [address] [place] [address] PCP - General 10/24/11 09/24/12 documented as of this encounter
--- OUTSIDE RECORDS SUMMARY | 2024-09-17 09:16 | XMS_ITS | Encounter Summary ---
Author Organization [facility] Address [address] [place] [address] Care Team Providers Care Ground Support Equipment Assembler Name Role Phone Brian Lindsay MD Primary Care Provider Unavail able Reason for Visit * Reason Onset Date Comments Pre-op Exam 08/21/2011 Encounter Details Date Type Department Care Team (Late st Contact Info) Description 08/21/2011 Pre-Procedure Orders Encounter [facility] Foot & Ankle Program - [place] [facility] [place] [address] Kristina Aaron LPN [address] [place] [address] Social History Tobacco Use Types Packs/Day Years [...] Visit [facility] Bariatric Surgery - [place] [address] [place] [address] Allen Thompson PA-C 111 [facility], [facility], Level [address] [place] [phone] 10/26/2024 10:45 EST Telemedicine [facility] Neurology - [address] [address] Sulema Nicole, HEEL SEATER 1 [facility], [address] [place] [phone] documented as of this encounter Visit Diagnoses Not on filedocumented in this encounter Care Teams Ground Support Equipment Assembler Relationship Specialty Start Date End Date Brian Lindsay MD PCP - General 04/11/11 10/23/11 documented as of this encounter
--- OUTSIDE RECORDS SUMMARY | 2024-09-17 09:17 | XMS_ITS | Encounter Summary ---
Author Organization [facility] Address [address] [place] [address] Care Team Providers Care Supervisor Road Administrator Name Role Phone Unavailable Primary Care Provider Unavailabl e Encounter Details Date Type Department Care Team (Latest Contact Info) Description 10/03/2006 9:47 EST - 10/03/2006 11:59 EST Hospital Encounter [address] [address] Khris Barraza MD [facility] [address] [phone] Discharge Disposition: Auto Discharge Social History Tobacco [...] Visit [facility] Bariatric Surgery - [address] [address] Allen Thompson PA-C 111 [facility], [address] [place] [address] 10/26/2024 10:45 EST Telemedicine [facility] Neurology - [address] [address] Sulema Nicole NP 1 [facility], [address] [place] [phone] documented as of this encounter Visit Diagnoses Not on filedocumented in this encounter
--- OUTSIDE RECORDS SUMMARY | 2024-09-17 09:17 | XMS_ITS ---
Author Organization [facility] Address [address] [place] [address] Care Team Providers Care Radio Equipment Repairer Name Role Phone Juma Herrera MD Unavailable Curtis Burns MD Primary Care Provider [phone] Headache Status:Enrolled (Active) Start date:03/10/2021 Enrollment date:03/10/2021 Current support & services provided:Clinical Management, Refill Management Linked medications:erenumab-aooe (Active) Linked problems:Chronic migraine without aura without status migrainosus, not intractable (Active) Overview Outcomes patient Continued Care and Services Coordination
--- OUTSIDE RECORDS SUMMARY | 2024-09-17 09:17 | XMS_ITS | Encounter Summary ---
Author Organization [facility] Address [address] [place] [address] Care Team Providers Care Rigging Helper Name Role Phone Unavailable Primary Care Provider Unavailabl e Encounter Details Date Type Department Care Team (Latest Contact Info) Description 09/19/2006 11:53 EST - 09/19/2006 11:59 EST Hospital Encounter [facility] - [place] conversion [address] [place], [place] [address] [phone] Harry Abreu MD Discharge Disposition: Auto Discharge [...] Office Visit [facility] Bariatric Surgery - [place] [address] [place] [address] Allen Thompson, PALizettC 111 [facility], [facility] 5 [place] [phone] 10/26/2024 10:45 EST Telemedicine [facility] Neurology - [address] [phone] Sulema Nicole, DRYING OVEN TENDER [address] [place] [address] [address] [place] [address] documented as of this encounter Procedures Procedure [...] visible in flexion but not in extension. [id number] D: ??09/21/2006 16:18 T: ??09/23/2006 13:12 Procedure [...] visible in flexion but not in extension. [id number] Harry Abreu MD [facility] DIAGNOSTIC IMAGING O RDERABLES Final Result * PELVIS 1 OR 2 VIEWS (09/19/2006 [...] AP view. D: ? 09/19/06 T: ? 09/22/06amn Procedure Note Albaro Watson MD - 03/12/2009 LBP. HIP PAIN. S/P L5-S1 DISCECTOMY , L5-S1 SPONDYLOLYSIS. R/O OA. R/O INSTABILITY. SINGLE VIEW PELVIS FINDINGS: Hips are symmetrical, no pathologic condition identified. The patient had surgery, but it is not visible on the AP view. [facility] Harry Abreu MD IMG DIAGNOSTIC IMAGING O RDERABLES Final Result documented in this encounter Visit Diagnoses Not on filedocumented in this encounter
--- OUTSIDE RECORDS SUMMARY | 2024-09-17 09:17 | XMS_ITS | Encounter Summary ---
Author Organization [facility] Address [address] [place] [address] Care Team Providers Care Envelope Stamping Machine Operator Name Role Phone Unavailable Primary Care Provider Unavailabl e Encounter Details Date Type Department Care Team (Late Contact Info) Description 10/25/2006 9:19 EST Hospital Encounter [facility] - [place] conversion [address] [place], [place] [address] Kj Child MD [address] [place] [phone] Social History Tobacco Use Types Packs/Day [...] [facility] Bariatric Surgery - [place] [address] Allen Thompson PA-C 111 [facility], [facility], [address] [place] [phone] 10/26/2024 10:45 EST Telemedicine [facility] Neurology - [address] [place] [address] [place] [address] Sulema Nicole NP [address] [place] [address], [address] [place] [phone] documented as of this encounter Procedures Procedure [...] mm by that report. Kj Child MD [facility] MRI ORDERABLES Final Result documented in this encounter Visit Diagnoses Not on filedocumented in this encounter Additional Health Concerns Infection Onset Date Last Indicated Resolved Time COVID-19 08/15/2021 08/15/2021 09/04/2021 22:1 5 EST documented as of this encounter
--- OUTSIDE RECORDS SUMMARY | 2024-09-17 09:17 | XMS_ITS | Encounter Summary ---
Author Organization [facility] Address [address] [place] [address] Care Team Providers Care Sales Outfitter Name Role Phone Unavailable Primary Care Provider Unavailabl e Encounter Details Date Type Department Care Team (Late st Contact Info) Description 10/03/2006 Before PRISM Converted Visit ([place]) [facility] - [place] conversion [address] [place] [address] Khris Barraza MD [address] [place] [phone] Social History Tobacco Use Types Packs/Day Years [...] been followed by the Pain Service at [facility]. She saw Dr. Abreu for a comprehensive [...] Barraza MD - Wade Barraza MD kmt Ziggy - leti Job ID: [id number] Document ID: [id number] cc: MD Brian Segundo MD documented in this encounter Plan of Treatment Upcoming Encounters Date Type Department Care Team (Late st Contact Info) Description 09/18/2024 11:00 EST Office Visit [facility] Bariatric Surgery - [place] [address] [place] [address] Allen Thompson PA-C 111 [facility], [address] [place] [phone] 10/26/2024 10:45 EST Telemedicine [facility] Neurology - [address] [place] [address] [place] [address] Sulema Nicole NP [address] [place] [address] [address] [place] [phone] documented as of this encounter Visit Diagnoses Not on filedocumented in this encounter
--- OUTSIDE RECORDS SUMMARY | 2024-09-17 09:17 | XMS_ITS | Encounter Summary ---
Author Organization [facility] Address [address] [place] [address] Care Team Providers Care Agent Licensing Clerk Name Role Phone Unavailable Primary Care Provider Alesha e Encounter Details Date Type Department Care Team (Late st Contact Info) Description 09/19/2006 Before PRISM Converted Visit ([place]) [facility] - [place] conversion [address] [place] [address] Harry Abreu MD Social History Tobacco Use Types Packs/Day Years Used Date Smoking Tobacco: Never Assessed Comments Unknown Sex and Gender Information Value Date Recorded Sex Assigned at Not on file Legal Sex Female 14:17 EST Gender Identity Female 10/05/2021 12:31 EST Sexual Orientation Not on file documented as of this encounter Consult Notes * Harry Abreu MD - 09/06/2009 0345 EST Spine [facility] (SpINE) Orthopa[facility]ics [facility] Rehabilitation [address] [place] [phone] CONSULTATION - [place]: Right buttock pain and [...] extensive evaluations and treatments postoperatively through the [facility]. She has had many injections pe rformed [...] notes from the Anesthesia Pain Service at [facility]. Ms. Spain has also completed a patient [...] Abreu MD A - cmd Job ID: [id number] Document ID: [id number] cc: MARGARITA Chaudhari MD Thomas J Zweber, MD documented in this encounter Plan of Treatment Upcoming Encounters Date Type Department Care Team (Late st Contact Info) Description 09/18/2024 11:00 EST Office Visit [facility] Bariatric Surgery - [place] [address] [place] [address] Allen Thompson PA-C [address] [place] [address], [address] [place] [address] 10/26/2024 10:45 EST Telemedicine [facility] Neurology - [address] [address] Sulema Nicole NP 1 [facility], [address] [place] [phone] documented as of this encounter Visit Diagnoses Not on filedocumented in this encounter
--- OUTSIDE RECORDS SUMMARY | 2024-09-17 09:17 | XMS_ITS | Encounter Summary ---
Author Organization [facility] Address [address] [place] [address] Care Team Providers Care Citrix Consultant Name Role Phone Unavailable Primary Care Provider Unavailabl e Encounter Details Date Type Department Care Team (Late st Contact Info) Description 04/29/2000 15:37 EDT Hospital Encounter [facility] - [place] [address] [place] [address] Kj Child MD [address] [place] [phone] Discharge Disposition: Auto Discharge Social History [...] Description 09/18/2024 11:00 EST Office Visit [facility] Bariatric Surgery - [address] [address] Allen Thompson PA-C 111 [facility], [address] [place] [address] 10/26/2024 10:45 EST Telemedicine [facility] Neurology - [address] [address] Sulema Nicole, NOZZLE OPERATOR 1 [facility], Level [address] [place] [address] documented as of this encounter [...] is normal. D 05/01/00 T 05/02/00 /marichuy us Kj Child MD IMG DIAGNOSTIC IMAGING O RDERABLES Final Result * L SPINE 2-3 VIEWS (04/29/2000 9:59 EDT) Anatomical Region Laterality Modality Other 04/29/2000 9:59 EDT Narrative 07/12/2009 18:59 EST PAIN WITH MOVEMENT. ??S/P L5-S1 DISCECTOMY. R/O DEGENERATIVE INSTABILITY. Procedure Note Yao Hedrick MD - 07/12/2009 PAIN WITH MOVEMENT. S/P L5-S1 DISCECTOMY. R/O DEGENERATIVE INSTABILITY. Kj Child MD IMG DIAGNOSTIC IMAGING O RDERABLES Final Result documented in this encounter Visit Diagnoses Not on filedocumented in this encounter
[2024-09-17 09:52] LABS: Vitamin D 25 Total 26.1 ng/mL (30-100)
[2024-09-17 09:55] LABS: ALT 12 U/L (14-59); AST 13 U/L (15-37); Albumin 3.4 g/dL (3.4-5.0); Alkaline Phosphatase 68 U/L (46-116); Anion Gap 7.6 mmol/L (3-11); BUN 13 mg/dL (7-18); Bilirubin, Total 0.47 mg/dL (0.2-1.0); CO2 29.4 mmol/L (21.0-32.0); CREATININE 0.8 mg/dL (0.55-1.02); Calculated LDL 139 mg/dL (<100); Chloride 106 mmol/L (98-107); Cholesterol 256 mg/dL (<200); Estimated GFR 89.15 (mL/min/1.73m2); Folate 10.3 ng/mL (8.6-20.0); Glucose 88 mg/dL (74-106); HDL Cholesterol 95 mg/dL (40-60); Magnesium 2.1 mg/dL (1.8-2.4); Potassium 3.6 mmol/L (3.5-5.1); Sodium 143 mmol/L (136-145); TSH 2.29 uIU/mL (0.36-3.74); Total Protein 6.7 g/dL (6.4-8.2); Triglyceride 110 mg/dL (<150); Vitamin B12 297 pg/mL (193-986)
[2024-09-17 11:57] LABS: Iron 155 ug/dL (50-170)
[2024-09-17 12:09] LABS: Ferritin 39 ng/mL (8-252)
[2024-09-22 12:06] LABS: Thiamine (Vitamin B1), WB 106 nmol/L (70-180)
== END 2024-09-17 09:05 | disposition home or self-care (01) ==
LOC: LBO 09:04
PROVIDERS: PCP Family Medicine; Visit Provider Nurse Practitioner Family
DX: E78.5 Hyperlipidemia, unspecified (principal); R53.83 Other fatigue; D50.9 Iron deficiency anemia, unspecified
CPT/HCPCS: 36415; 80053; 80061; 82306; 82607; 82728; 82746; 83540; 83735; 84425; 84443; 85025

== ENCOUNTER 2024-12-31 17:32 | Outpatient (REF) | payer MEDICARE, SELFPAY | END 2024-12-31 17:33 | disposition home or self-care (01) | LOC: NCHCN 17:32 | PROVIDERS: PCP Nurse Practitioner Family; Visit Provider Nurse Practitioner Family | DX: L30.4 Erythema intertrigo (principal) | CPT/HCPCS: 87480; 87510; 87660 ==

== ENCOUNTER 2025-03-28 15:32 | Emergency (ER) | payer MEDICARE, SELFPAY ==
[2025-03-28 15:37] VITALS: BP 138/81; PULSE 75; RESP 16; TEMP 36.8; O2SAT 95
--- NOTE | 2025-03-28 16:01 | W.ED.GENAD ---
Discharge Plan Disposition Patient Disposition: Home Discharge Details Clinical Impression: Back pain Primary Care Provider: [facility] Us ED Provider: Yoly Diaz Home Meds and New Rx's Prescriptions: New cyclobenzaprine 10 mg tablet 10 mg PO TID PRNQty: 10 0RF Continued cholecalciferol (vitamin D3) 50 mcg (2,000 unit) capsule 50 mcg PO DAILY Qty: 90 3RF prochlorperazine 25 mg suppository 25 mg ND Q12H PRN (Reason: nausea and vomiting) Qty: 12 3RF Aimovig Autoinjector 70 mg/mL auto-injector 140 mg subcut QMONTH albuterol sulfate [ProAir HFA] 90 mcg/actuation HFA aerosol inhaler 1 - 2 puff Inhalation Q4H PRN Qty: 1 6RF benzonatate 100 mg capsule 100 mg PO TID PRN (Reason: cough) Qty: 30 0RF Multi Complete with Iron 1 EACH tablet 1 tab PO DAILY duloxetine 30 mg capsule,delayed release(DR/EC) 30 mg PO DAILY Qty: 90 4RF Rx Instructions: Take with 60 mg cap duloxetine [Cymbalta] 60 mg capsule,delayed release(DR/EC) 60 mg PO DAILY Qty: 90 4RF methylphenidate HCl 20 mg tablet 20 mg PO BID MDD 40 mg Qty: 56 0RF Rx Instructions: Take with 10 mg tab methylphenidate HCl 10 mg tablet 10 mg PO BID MDD 20 mg Qty: 56 0RF Rx Instructions: Take with 20 mg for total dose of 30 mg pregabalin [Lyrica] 100 mg capsule 100 mg PO TID Qty: 42 0RF acetaminophen 500 mg Tablet 1,000 mg PO Q6H PRN fluticasone propionate 50 mcg/actuation spray,suspension 1 spray INTRANASAL PRN nystatin [Klayesta] 100,000 unit/gram powder 1 applic TOPICAL DAILY PRN clonidine HCl 0.1 mg tablet 0.1 mg PO BID Patient Comments: TAKE 1 TABLET BY MOUTH TWICE DAILY sumatriptan succinate 6 mg/0.5 mL cartridge 1 syrg SUBCUT DAILY PRN omeprazole 40 mg Capsule,Delayed Release(Dr/Ec) 40 mg PO DAILY PRN buspirone 30 mg Tablet 30 mg PO BID naproxen sodium [Aleve] 220 mg Capsule 440 mg PO TID Discharge Instructions Instructions: Low Back Pain ED Additional Instructions: take valium as needed for pain do not take an additional dose until tomorrow motrin and tylenol for pain control I'll write for a muscle relaxant if your symptoms persist, do not take with valium Stand Alone Forms: Work Release Referrals: Charlotte Us [Primary Care Provider, Medicine] Discharge Data Discharge Date/Time-TO BE ENTERED AT DEPARTURE: 03/28/25 17:53 HPI General Date/Time Provider Initiated Documentation: 03/28/25 15:41. HPI Narrative: 49-year-old female with history of lumbar surgery at [facility], presenting with acute exacerbation of chronic pain, sharp over sacroiliac joints. No significant trauma aside from lifting a laundry basket. No fever, chills, changes in bowel or bladder function, significant radiation of pain, urinary symptoms, or chance of . No pain medication taken. Related Data Home Medications ?Medication ?Instructions ?Recorded ?Confirmed multivitamin-ferrous 1 tab PO DAILY 06/09/15 03/28/25 fumarate-folic acid 18 mg-400 mcg tablet (Multi Complete with Iron) cholecalciferol (vitamin D3) 50 50 mcg PO DAILY #90 caps 06/03/20 03/28/25 mcg (2,000 unit) capsule prochlorperazine 25 mg rectal 25 mg ND Q12H PRN nausea and 06/03/20 03/28/25 suppository vomiting #12 ea duloxetine 30 mg capsule,delayed 30 mg PO DAILY #90 caps 08/02/20 03/28/25 release duloxetine 60 mg capsule,delayed 60 mg PO DAILY #90 tabs 10/07/20 03/28/25 release (Cymbalta) methylphenidate HCl 10 mg tablet 10 mg PO BID #56 tabs 11/18/20 03/28/25 methylphenidate HCl 20 mg tablet 20 mg PO BID #56 tabs 11/18/20 03/28/25 clonidine HCl 0.1 mg tablet 0.1 mg PO BID 03/11/21 03/28/25 erenumab-aooe 70 mg/mL 140 mg subcut QMONTH 04/21/21 03/28/25 subcutaneous auto-injector (Aimovig Autoinjector) albuterol sulfate 90 mcg/actuation 1 - 2 puff inhalation Q4H PRN ##1 08/15/21 03/28/25 aerosol inhaler (ProAir HFA) benzonatate 100 mg capsule 100 mg PO TID PRN cough #30 caps 08/15/21 03/28/25 acetaminophen 500 mg tablet 1,000 mg PO Q6H PRN 11/06/21 03/28/25 pregabalin 100 mg capsule (Lyrica) 100 mg PO TID #42 tab-caps 12/05/21 03/28/25 buspirone 30 mg tablet 30 mg PO BID 10/05/22 03/28/25 naproxen sodium 220 mg capsule 440 mg PO TID 10/05/22 03/28/25 (Aleve) omeprazole 40 mg capsule,delayed 40 mg PO DAILY PRN 10/05/22 03/28/25 release sumatriptan succinate 6 mg/0.5 mL 1 syrg subcut DAILY PRN 10/05/22 03/28/25 subcutaneous cartridge (refill) cyclobenzaprine 10 mg tablet 10 mg PO TID PRN #10 tabs 03/28/25 fluticasone propionate 50 1 spray intranasal PRN 03/28/25 03/28/25 mcg/actuation nasal spray,suspension nystatin 100,000 unit/gram topical 1 applic topical DAILY PRN 03/28/25 03/28/25 powder (Klayesta) Previous Rx's ?Medication ?Instructions ?Recorded cholecalciferol (vitamin D3) 50 50 mcg PO DAILY #90 caps 06/03/20 mcg (2,000 unit) capsule prochlorperazine 25 mg rectal 25 mg ND Q12H PRN nausea and 06/03/20 suppository vomiting #12 ea duloxetine 30 mg capsule,delayed 30 mg PO DAILY #90 caps 08/02/20 release duloxetine 60 mg capsule,delayed 60 mg PO DAILY #90 tabs 10/07/20 release (Cymbalta) methylphenidate HCl 10 mg tablet 10 mg PO BID #56 tabs 11/18/20 methylphenidate HCl 20 mg tablet 20 mg PO BID #56 tabs 11/18/20 albuterol sulfate 90 mcg/actuation 1 - 2 puff inhalation Q4H PRN ##1 08/15/21 aerosol inhaler (ProAir HFA) benzonatate 100 mg capsule 100 mg PO TID PRN cough #30 caps 12/14/21 pregabalin 100 mg capsule (Lyrica) 100 mg PO TID #42 tab-caps 12/05/21 cyclobenzaprine 10 mg tablet 10 mg PO TID PRN #10 tabs 03/28/25 Allergies Allergy/AdvReac Type Severity Reaction Status Date / Time adhesive tape Allergy Intermediate Raw Skin Verified 03/28/25 15:41 bee pollen (Bee Pollen) Allergy Intermediate Large Verified 03/28/25 15:41 local reaction codeine (Codeine) AdvReac Intermediate NAUSEA/VOMI Verified 03/28/25 15:41 TING General Stated Complaint: Nk/Back Pain CUAUHTEMOC: 3 Exam Narrative Exam Narrative: General Appearance: Alert and oriented. Vital signs: Within normal limits. HEENT: Within normal limits. Respiratory: Lungs auscultated. Gastrointestinal: No abdominal tenderness. Back, Musculoskeletal: Reproducible tenderness over sacroiliac joints without redness. Extremities: Intact DTRs, strength, and sensation in bilateral lower extremities. Intact plantar flexion and dorsiflexion. Skin: Warm and dry, no rash. Neurological: Negative Babinski sign. Neurovascularly intact. Psychiatric: Alert and oriented. Course Vital Signs Vital signs: Vital Signs Temperature 36.8 C 03/28/25 15:37 Pulse 75 03/28/25 15:37 Respiratory Rate 16 03/28/25 15:37 Blood Pressure 138/81 03/28/25 15:37 Pulse Oximetry 95 03/28/25 15:37 Temperature 36.8 C 03/28/25 15:37 Temperature Source Oral 03/28/25 15:37 Pulse 75 03/28/25 15:37 Respiratory Rate 16 03/28/25 15:37 Blood Pressure 138/81 03/28/25 15:37 Pulse Oximetry 95 03/28/25 15:37 Pain Level 8 03/28/25 15:37 Medical Decision Making Initial Assessment: 49-year-old female with history of lumbar surgery presents with acute exacerbation of chronic pain, sharp over sacroiliac joints. Denies significant trauma aside from lifting a laundry basket. No fever, chills, changes in bowel or bladder function, significant radiation of pain, urinary symptoms, or chance of . Differential Diagnosis: - Acute exacerbation of chronic pain: History of lumbar surgery, reproducible tenderness over sacroiliac joints. Administer Valium and Toradol IM. - : Denies chance of . Conduct cvtti-ha-rysg test. - Urinary tract infection: Denies urinary symptoms. Conduct urinalysis. ED Course: - Valium and Toradol IM administered - Urinalysis obtained - Jyzcc-xt-lecz test obtained - Patient feels symptomatically improved after 10 mg of IM Valium she is requesting discharge home I gave 2 Valium for home we will continue Motrin and Tylenol no evidence clinically of cauda equina syndrome, suspect musculoskeletal back pain. Neurological exam is benign and abdominal exam is benign Final Assessment: Acute exacerbation of chronic pain with sharp pain over sacroiliac joints. Administered Valium and Toradol IM. Conducted urinalysis and ergdg-ug-dypt test. Clinical Impression: - Acute exacerbation of chronic pain Disposition: - Discharge home. Return if symptoms worsen or new symptoms develop. Initial Assessment: 49-year-old female with history of lumbar surgery presents with acute exacerbation of chronic pain, sharp over sacroiliac joints. Denies significant trauma aside from lifting a laundry basket. No fever, chills, changes in bowel or bladder function, significant radiation of pain, urinary symptoms, or chance of . Differential Diagnosis: - Acute exacerbation of chronic pain: History of lumbar surgery, reproducible tenderness over sacroiliac joints. Administer Valium and Toradol IM. - : Denies chance of . Conduct qfmds-cu-qsvl test. - Urinary tract infection: Denies urinary symptoms. Conduct urinalysis. ED Course: - Valium and Toradol IM administered - Urinalysis obtained - Yvivi-zb-gigk test obtained Final Assessment: Acute exacerbation of chronic pain with sharp pain over sacroiliac joints. Administered Valium and Toradol IM. Conducted urinalysis and gesfs-kr-plcl test. Clinical Impression: - Acute exacerbation of chronic pain Disposition: - Discharge home. Return if symptoms worsen or new symptoms develop. 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) Bilateral sacroiliitis (Chronic 07/10/16) Bipolar disorder (Chronic) Chronic right shoulder pain (Chronic 04/03/18) Degeneration of cervical intervertebral disc (Chronic 09/18/12) Elsy iqbal for injections Depressive disorder (Chronic) Dyspareunia (Chronic 02/01/17) Gastroesophageal reflux disease (Chronic) Hypersomnia (Chronic 07/10/16) Low back pain (Chronic) spinal fusion L-S; nerve stimulator implanted Migraine (Chronic) Osteoarthritis of right knee (Chronic 01/06/15) Smoker (Chronic 07/11/17) vaping Urinary incontinence, mixed (Chronic 08/11/15) Vasomotor symptoms due to menopause (Acute) 09/2019. Laparoscopic bilateral salpingectomy for treatment of pelvic pain. VMS after surgery present but tolerable Chronic pain (Chronic) Pain clinic [facility]- SI & Cervical steroid injections Pain, joint, knee, right (Acute) 01/20- being seen at [facility] pain clinic- synvisc Medical History Cellulitis of leg right lower extremity cellulitis Cellulitis of leg Cervicalgia Cervicalgia Cholelithiasis without obstruction S/P cholecystectomy Chronic pelvic pain in female Pelvic CT. Normal pelvic and abdominal ultrasound. 10/2017 Depo-Lupron 11.25 mg IM Depression Multifactorial. Currently dealing with achieving custody of her granddaughter from her daughter. GERD (gastroesophageal reflux disease) Hand pain, right 07/2020- seeing OT History of tobacco use Idiopathic peripheral neuropathy Kidney stone Lower abdominal pain (10/22/17) Rx with DepoLupron 11.25mg x1 10/22/17. Lumbar radiculopathy, acute Menorrhagia (05/06/14) Obesity Status post bariatric surgery Os trigonum syndrome Posttraumatic stress disorder Right cervical radiculopathy (04/03/16) better since spinal fusion Spinal stenosis (05/12/15) Substance abuse Pt. states she has been clean for over 22 years Tarsal tunnel syndrome Tarsal tunnel syndrome S/P RIGHT 11/13/11 ([facility]) operated on right foot- stable Tobacco use Surgical History Cholecystectomy (~1997) Endometrial Biopsy 05/10/14;[facility] History of bilateral ligation of fallopian tubes History of bilateral salpingo-oophorectomy 09/09/2021 treat chronic pelvic pain. Patient had been pretreated for approximately 2 years with Depo. Lupron History of gynecological procedure History of spinal fusion >5 years Hysterectomy, Laproscopic (~10/2016) Ovaries conserved. Postop vaginal cuff hematoma managed expectantly. EP Ligation of fallopian tube sleeve gastrectomy (~2015) [facility] Spinal Fusion (~2006) nerve stimulator implanted Status post cholecystectomy Social History Smoking/Tobacco Use Status: Current every day Tobacco Type: e-cigarettes Quit status: not considering quitting Second Hand Exposure: Yes Smoking risk assessment performed?: Yes Alcohol Intake: current Alcohol Intake frequency: holidays/special occasions only Alcohol type: hard liquor Details: OCCASIONAL Drug use: Current Sobriety Substance use type: does not use Details: Marijuana for pain mgmt Caregiver/Support person: No Household members: spouse, family and children Housing: house Number of Children: 3 number of grandchildren: 3 Pets and animals: Yes Pets and animals: cat(s) and dog(s) Sexually active: Yes Do you think of yourself as: straight/heterosexual Current gender identity: female Other: 09/01/20 Favio Rooney What is your relationship status?: How often do you talk on the phone with friends or family?: three or more times per week How often do you get together with friends or relatives?: twice per week Do you belong to any clubs or organized social groups?: no Panel score (0-1 are the most socially isolated patients): 2 What type of physical activity do you participate in: walking Cindy/Christianity: None Special cindy needs: No Seatbelt use: always Helmet use: No Drive intox or ride w/intox taxicab driver: No Do you feel safe at home: Yes (Spouse in room) Do you feel safe in your relationship?: Yes Female Reproductive History Menstrual Menopause type: surgical History History 3 Para Hx # Term Pregnancies 3 Multiple births Hx # Pregnancies Ectopic pregnancies AB induced Hx Number of Living Children AB spontaneous PAWSS Have you Been Recently Intoxicated or Drunk Within the Last 30 days?: No Have you Ever Experienced Previous Episodes of Alcohol Withdrawal?: No Have you ever Experienced Withdrawal Seizures?: No Have you ever Experienced Delirium Tremens(DT)s?: No Have you ever undergone Alcohol Rehabilitation Treatment (i.e, inpt ot outpatient treatment programs)?: No Have you ever Experienced Blackouts?: No Have you ever Combined Alcohol with other Downers within the last 90 days?: No Have you ever Combined Alcohol with any other Substance of Abuse during the last 90 days?: No Positive Blood Alcohol level on Presentation? [PCS.BAL]: No Evidence of Increased Autonomic Activity (i.e. HR>120, tremor, sweating, agitation, nausea)?: No Result: 0
[2025-03-28 16:05] LABS: Glucose Negative (Negative)
[2025-03-28] MEDS: Ketorolac 15 MG/ML VIAL IM (16:11)
[2025-03-28] MEDS: diazePAM 10 MG/2 ML SYR 5 MG IM ×2 (16:12→17:08)
[2025-03-28 17:22] VITALS: BP 136/75; PULSE 60; RESP 16; TEMP 37; O2SAT 96
[2025-03-28] MEDS: diazePAM 5 MG TAB 10 MG PO (17:45)
== END 2025-03-28 17:53 | disposition home or self-care (01) ==
PROVIDERS: Emergency Provider Physician Assistant; PCP Nurse Practitioner Family
DX: M54.50 Low back pain, unspecified (principal); G89.29 Other chronic pain; F17.290 Nicotine dependence, other tobacco product, uncomplicated; Z98.1 Arthrodesis status; Z98.84 Bariatric surgery status
CPT/HCPCS: 81025; 96372; 99284; 81003; 99283; J1885; J3360

== ENCOUNTER 2025-05-06 09:51 | Outpatient (CLI) | payer MEDICARE, SELFPAY ==
--- NOTE | 2025-05-06 | DI.MRI_ITS ---
Exam(s) MR LUMBAR SPINE WO EXAM: MR LUMBAR SPINE WO CLINICAL HISTORY: LUMBAR SPINAL STENOSIS W/O NEUROGENIC CLAUDICATION M48.061. TECHNIQUE: Multiplanar multisequence MRI of the Lumbar spine was performed. COMPARISON: MR MRI - LUMBAR SPINE WO CONTRAST from 04/05/2011 MR MRI - LUMBAR SPINE W/WO CONT from 02/09/2014 MR MR LUMBAR SPINE WO from 11/07/2022 FINDINGS: Bones: The last intervertebral disc space is designated the L5/S1 level for the numbering purpose of this examination. There is again seen posterior spinal surgery at L5-S1. There are degenerative endplate signal changes in the lumbar spine particularly at L1-L2. This has progressed since the prior examination. Alignment is satisfactory. The signal characteristics are unremarkable. Cord: It is of normal size and signal intensity. T12-L1: No disc herniations or bulges are present. No central spinal canal or neural foraminal stenosis. L1-2: There is a mild diffuse disc bulge. There is no significant central spinal canal stenosis. There is stable mild neural foraminal narrowing. L2-3: No disc herniations or bulges are present. No central spinal canal or neural foraminal stenosis.There are mild degenerative changes of the facets at this level. L3-4: There is a stable diffuse disc bulge at this level. There are degenerative changes of the facets. There is no significant central spinal canal stenosis. There is facet arthropathy present. This causes marked left and moderate right neural foraminal stenosis. L4-5: No disc herniations or bulges are present. No central spinal canal or neural foraminal stenosis. L5-S1: No disc herniations or bulges are present. No central spinal canal or neural foraminal stenosis. Soft tissues: The visualized SI joints and sacrum are well maintained. The paraspinal soft tissues are unremarkable. IMPRESSION: 1. Posterior spinal L5-S1 surgery is seen. 2. Stable degenerative changes seen at L3-L4 causing bilateral neural foraminal stenosis, left greater than right. 3. Stable degenerative changes seen at L1-L2 causing neural foraminal stenosis. DATA REPOSITORY:
== END 2025-05-06 10:11 ==
LOC: DI 09:52
PROVIDERS: PCP Nurse Practitioner Family; Visit Provider Nurse Practitioner Family
DX: M48.061 Spinal stenosis, lumbar region without neurogenic claudication (principal)
CPT/HCPCS: 72148